=== PATIENT | male | born 1945 | race Caucasian/White ===

== ENCOUNTER 2018-05-14 09:38 | Inpatient (IN) | payer MEDICARE, OTHER, SELFPAY ==
[2018-05-08 13:32] VITALS: BMI 36.6
[2018-05-14] VITALS (12 sets, daily range): BP systolic 121–156; BP diastolic 69–85; PULSE 78–660; RESP 16–20; TEMP 36.6–36.9; O2SAT 92–95; BMI 36.8; BMI 35.4
--- NOTE | 2018-05-14 10:04 | EKG12_ITS ---
Test Reason : SOB Blood Pressure : / mmHG Vent. Rate : 081 BPM Atrial Rate : 081 BPM P-R Int : 206 ms QRS Dur : 094 ms QT Int : 396 ms P-R-T Axes : 073 018 019 degrees QTc Int : 460 ms Sinus rhythm with frequent Premature ventricular complexes Low voltage QRS Cannot rule out Inferior infarct , age undetermined Abnormal ECG Confirmed by DUYEN RANDHAWA ([id number]), food expeditor ALBERTINA MELGAR ([id number]) on 05/18/2018 1:36:51 PM Referred By: JOVANY Confirmed By:DUYEN RANDHAWA
--- NOTE | 2018-05-14 10:04 | RAD_ITS ---
STUDY: X-RAY CHEST REASON FOR EXAM: Male, 72 years old. Increasing shortness of breath. TECHNIQUE: PA and lateral views of the chest. COMPARISON: None. FINDINGS: EKG electrodes are seen. There is evidence of vascular congestion and mild degree of CHF with bibasilar atelectasis. Blunting of both costophrenic angles. There is borderline cardiomegaly. Normal mediastinum and isaura. Normal visualized pulmonary arteries. There is atherosclerotic calcification of the aortic arch with tortuosity. Normal visualized thoracic spine. Normal visualized ribs, clavicles, and shoulders. There is no demonstrated abnormality of the visualized soft tissue structures of the upper abdomen. RAD/Chest PA and Lateral IMPRESSION: Findings in keeping with CHF. Blunting of both costophrenic angles. Electronically Signed: Parminder Benton, at 11:06 EST , Service support ,
[2018-05-14 10:25] LABS: Bacteria 0 SEEN /hpf (None Seen); Mucous, Urine 0 SEEN /hpf (<or=2+); Red Blood Cells-Urine 0 SEEN /hpf (0-5); Squamous Epithelial Cells - UA 0 SEEN /hpf (0-5); White Blood Cells 0 SEEN /hpf (0-5)
[2018-05-14 10:40] LABS: Color, Urine Yellow (Yellow); Glucose, Dipstick Normal (Normal); Ketone-Dipstick Negative (Negative); Leukocyte Esterase-Dipstick Negative /ul (Negative); Nitrite-Dipstick Negative (Negative); Occult Blood-Urine Negative /ul (Negative); Protein-Dipstick 100 mg/dl (Negative); Specific Gravity, Urine 1.015 (1.002-1.030); Urine Bilirubin Dipstick Negative (Negative); Urine Clarity Clear (Clear); Urine Urobilinogen Normal (Normal)
[2018-05-14 10:41] LABS: Absolute Neutrophil Count 6.5 X10^3/uL (2.0-7.7); Basophil# 0.07 X10^3/uL; Basophil% 0.8 % (0-1); Eosinophil# 0.13 X10^3/uL; Eosinophils% 1.5 % (0-5); Hematocrit 41.2 % (40-54); Hemoglobin 13.4 g/dl (13.0-16.5); Lymphocyte % 14.1 % (19-41); Mean Corp Hgb Conc 32.5 g/gl (32-36); Mean Corpuscular Hgb 29.5 pg (27.0-32.0); Mean Corpuscular Volume 90.5 fL (80-94); Mean Platelet Vol. 9.2 fl (6.2-12.0); Monocyte# 0.62 X10^3/uL; Monocyte% 7.3 % (0-10); Neutrophil # 6.51 X10^3/uL (2.7-7.7); Neutrophil % 76.2 % (47-70); Platelet Count 253 K/mm3 (150-450); RBC Distribution Width CV 13.9 % (11.6-14.6); RBC Distribution Width SD 45.2 fl (35.1-43.9); Red Blood Count 4.55 M/mm3 (4.6-6.2); White Blood Count 8.5 K/mm3 (4.4-11.0)
[2018-05-14 10:42] LABS: POSITIVE COUNT NO; POSITIVE DIFFERENTIAL NO; POSITIVE MORPHOLOGY NO
[2018-05-14 10:59] LABS: ALB/GLOB Ratio 1.1 RATIO (0.9-2.4); AST(SGOT) 22 U/L (15-37); Alanine Aminotransfer ALT/SGPT 19 U/L (16-61); Albumin, Serum 3.9 g/dL (3.2-5.0); Alkaline Phosphatase 156 U/L (45-117); Anion Gap 8 (5-15); BUN 43 mg/dL (7-18); BUN/Creat Ratio 18.3 RATIO (10-20); Calcium,Total 9.2 mg/dL (8.5-10.1); Chloride 105 mmol/L (98-107); Creatinine, Serum 2.35 mg/dL (0.70-1.30); EST Glomerular Filtration Rate 29 mL/min (>60); Est Glom Filt Rate - Afr Amer 35 mL/min (>60); Estimated Creatinine Clearance 26.96 ml/min; Globulin 3.7 g/dL (2.2-4.2); Glucose 103 mg/dL (74-106); Potassium 4.6 mmol/L (3.5-5.1); Protein, Total 7.6 g/dL (6.4-8.2); Sodium Level 138 mmol/L (136-145)
[2018-05-14 13:20] LABS: BNP,B-Type NATRIURETIC PEPTIDE 797.4 pg/mL (0-100)
--- NOTE | 2018-05-14 14:41 | ED.VISSUMM ---
- ER Visit Summary Date of Service: 05/14/18 Chief Complaint: Dyspnea History of Present Illness: The patient is a 72 M presents the emergency part shortness of breath. He states is been ongoing for past several months but worsening. He states that in March he started some Advair but seem to make things worse so it was discontinued. He saw Dr. Ramirez from pulmonology he states 2 Fridays ago. He reports that he has a 6-minute walk and pulmonary function test scheduled. He has known obstructive sleep apnea but could not tolerate the CPAP does not wear it. He does have a sleep study coming up. He notes decreased appetite feels weaker than normal more short of breath with exertion and states his legs are more swollen than they have been. He denies a history of pulmonary hypertension. He states he has chronic kidney disease. He said prior cardiac stents. 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. Physical Examination: Afebrile vital signs are stable Gen: Well-nourished well-developed Head: Normocephalic atraumatic Eyes: Perrl EOMI ENT: TMs clear no rhinorrhea moist mucous membranes Neck: Supple no lymphadenopathy no JVD nontender CVS: Regular rate rhythm no murmurs normal S1-S2 Respiratory: No distress clear to auscultation bilaterally chest nontender Abdomen: Soft nontender nondistended normal bowel sounds no masses Back: Nontender Extremity: Nontender plus lower extremity edema to the level of the knees Skin: Normal color no rash Neuro: alert orientated ?3 CN II-XII intact normal strength sensation reflexes gait cerebellar Psych: Normal affect normal mood Test Results: 1. Chest x-ray showed small pleural effusions and mild CHF. Creatinine 2.4. Troponin negative. Natruretic peptide around 700. Emergency Department Course and Treatment: Patient received Lasix. He when he ambulates he drops to about 88% and his labored breathing. August of last year his creatinine was 2 February was 2.2. He had a recent echocardiogram that showed a right ventricular systolic pressure of 49. At this point this appears to be a degree of congestive heart failure probably complicated by underlying pulmonary disease. Plan is admission. Impression: 1. Dyspnea 2. Congestive heart failure This note was generated with [employer] dictation software. It may contain incorrect words, spelling, and punctuation that were not noted in review of the chart prior to signing ED Disposition - Plan for ED Patient: Disposition: Home or Assisted Living
[2018-05-14] MEDS: Furosemide 100 MG/10 ML Vial 60 MG IV (14:47)
--- NOTE | 2018-05-14 15:02 | CASEMGMT ---
RN CM Assessment Introduced role of RN CM to patient and at bedside. Patient is alert, oriented and able to participate in RN CM Assessment. Care providers, pharmacy, and demographics verified. Patient has a h/o COPD, Currently being worked up with Pulm- Dr Ramirez for spot on lung and has a few upcoming appointments for walking test, Lung Function Test, Sleep Apnea Test. Advair was making patient feel worse and told to stop per MD. 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 Lives with in a Home, 3 steps to enter. Independent with ambulation and ADL's. Transportation: Patient drives, will drive on [place]. DME: None, No preference on DME Company. HHC: None in the past, No preference on Agency. SNF: None in past, no preference on Facility. DC PLAN: Home with , no anticipated needs identified. JAMILAH Larson
--- NOTE | 2018-05-14 15:33 | PCM.HP.STD ---
Problem List (1) (HFpEF) heart failure with preserved ejection fraction Status: Acute Qualifiers: Heart failure chronicity: acute Qualified Code(s): I50.31 - Acute diastolic (congestive) heart failure History of Present Illness Date of Admission: 05/14/18 Chief Complaint: Dyspnea on exertion The patient is a 72 year old M who over the past month has had progressive dyspnea on exertion. Is also had increased lower extremity edema. Patient presented to the emergency room for evaluation. Chest x-ray was consistent with CHF and he received IV Lasix in the emergency room. Patient denies ever having had heart failure before. 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) Lumbosacral stenosis (Chronic) Erectile dysfunction (Chronic) BPH (benign prostatic hyperplasia) (Chronic) Chronic kidney disease, stage 3 (Chronic) Lumbar disc disease with radiculopathy (Chronic) GERD (gastroesophageal reflux disease) (Chronic) Gout (Chronic) COPD (chronic obstructive pulmonary disease) (Chronic) Coronary atherosclerosis of [place] coronary artery (Chronic) HTN (hypertension) (Chronic) HLD (hyperlipidemia) (Chronic) Obesity (Chronic) Medical History: Medical History (Last Reviewed 05/14/18 @ 15:35 by Andrey Soliman DO) MARCELO (obstructive sleep apnea) (Chronic) G47.33 Contact dermatitis (Acute) L25.9 Acute upper respiratory infection (Acute) J06.9 Acute suppurative otitis media (Acute) H66.009 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) F52.8 Lumbosacral stenosis (Chronic) M48.07 Acute bronchitis (Acute) J20.9 Acute sinus infection (Acute) J01.[address] (Acute) R93.89 Bilateral leg edema (Acute) R60.0 ELLIOTT (dyspnea on exertion) (Acute) R06.09 Erectile dysfunction (Chronic) N52.9 BPH (benign prostatic hyperplasia) (Chronic) N40.0 Chronic kidney disease, stage 3 (Chronic) N18.3 Lumbar disc disease with radiculopathy (Chronic) M51.16 GERD (gastroesophageal reflux disease) (Chronic) K21.9 Gout (Chronic) M10.9 COPD (chronic obstructive pulmonary disease) (Chronic) J44.9 Coronary atherosclerosis of si[place] coronary artery (Chronic) I25.10 HTN (hypertension) (Chronic) I10 HLD (hyperlipidemia) (Chronic) E78.5 Obesity (Chronic) E66.9 Allergies Penicillins Allergy (Severe, Verified 05/14/18 15:32) Rash, 105 temp aspirin Adverse Reaction (Mild, Verified 05/14/18 10:05) rash ENTERIC COATED ONLY; IS ABLE TO TAKE REGULAR ASPIRIN Home Medications: Ambulatory Orders Medication Instructions Recorded allopurinol 100 mg tablet 100 mg PO BID 05/03/18 amlodipine 10 mg tablet 10 mg PO DAILY 05/03/18 ascorbic acid (vitamin C) 500 mg 500 mg PO DAILY 05/03/18 tablet aspirin 81 mg chewable tablet 81 mg PO DAILY 05/03/18 furosemide 40 mg tablet 40 mg PO BID 05/03/18 indomethacin 25 mg capsule 25 mg PO PRN PRN 05/03/18 losartan 100 mg tablet 100 mg PO DAILY 05/03/18 magnesium oxide 400 mg capsule 400 mg PO BID cap 05/03/18 metoprolol succinate ER 50 mg 25 mg PO BID 05/03/18 tablet,extended release 24 hr multivitamin tablet 1 tab PO DAILY 05/03/18 nitroglycerin 0.4 mg sublingual 0.4 mg SUBLINGUAL Q5-15M PRN 05/03/18 tablet omeprazole 20 mg capsule,delayed 20 mg PO DAILY 05/03/18 release rosuvastatin 5 mg tablet 5 mg PO QHS 05/03/18 Surgical History: Surgical History (Last Reviewed 05/14/18 @ 15:35 by Andrey Soliman DO) History of knee replacement procedure of left knee (Resolved) Z96.652 History of foot surgery (Resolved) Z98.890 History of heart artery stent (Resolved) Z95.5 Smoking Status: Former smoker Tobacco Use: Non-smoker Alcohol: Rare - *Family History Maternal Family History: Family History (Last Reviewed 05/14/18 @ 15:35 by Andrey Soliman DO) Mother Hypertension CVA (cerebral vascular accident) Father Heart disease Hodgkin disease Sister Heart disease Review of Systems Constitutional: Denies: Anorexia, Chills, Fever Eyes: Denies: Blurred vision, Double vision HEENT: Denies: Head Aches, Sinus Congestion, Sinus Drainage Cardiovascular: Reports: Edema. Denies: Chest Pain, Chest Pressure Respiratory: Reports: Cough, Shortness of breath upon exertion Gastrointestinal: Denies: Abdominal Pain, Nausea, Vomiting Genitourinary: Denies: Dysuria Musculoskeletal: Denies: Joint Pain, Joint Tenderness Skin: Denies: Dryness, Rash Neurological: Denies: Numbness, Tingling, Focal weakness Psychiatric: Denies: Homicidal Ideations, Suicidal Ideations Endocrine: Denies: Change in Body Habitus Hematologic/ Lymphatic: Denies: Easy Bruising, Easy Bleeding, Hx of blood clot Comment: A 10 point review of systems were negative except as mentioned in the history of present illness and the other review of systems. VTE Information - Inpt Only VTE Present on Admission: No VTE Mechan Device Prophylaxis: None VTE Pharm Prophylaxis ordered?: Yes Patient Problems: Active and Suspected Problems (Last Updated 05/08/18 @ 13:40 by Ewa Gonzalez) (HFpEF) heart failure with preserved ejection fraction (Acute) - Physical Exam General: Alert, Cooperative, No apparent distress HEENT: Atraumatic, Normocephalic Oral: Moist Mucosa, No Gingival or Mucosal Lesions/ Ulcerations Neck: No JVD, No Nodes, Thyroid Normal Size and Texture Lungs: Diminished, - - Crackles bilaterally. Cardiovascular: Regular rate, Regular Rhythm, Normal S1, Normal S2, No murmurs Abdomen: Bowel Sounds Present, Soft, Non Tender, Non-Distended, No Hepato-splenomegaly Extremities: No Calf Tenderness, Edema Skin: No rashes, No breakdown Musculoskeletal: No Tenderness to Palpation of Joints or Extremities, No Muscle Wasting Psych/Mental Status: Normal Affect, Appropriate Vital Signs Temp Pulse Resp BP Pulse Ox 36.6 C 80 20 H 156/73 H 94 05/14/18 09:40 05/14/18 14:24 05/14/18 14:24 05/14/18 14:24 05/14/18 14:24 Weight: 106.5 kg Body Mass Index (BMI) 36.8 Laboratory Tests Past 24 Hrs 05/14/18 05/14/18 05/14/18 10:15 10:30 10:30 WBC 8.5 RBC 4.55 L Hgb 13.4 Hct 41.2 MCV 90.5 MCH 29.5 MCHC 32.5 RDW 13.9 RDW Differential 45.2 H Plt Count 253 MPV 9.2 Immature Gran % (Auto) 0.100 Neut % (Auto) 76.2 H Lymph % (Auto) 14.1 L [place] % (Auto) 7.3 Eos % (Auto) 1.5 Baso % (Auto) 0.8 Absolute Neuts (auto) 6.5 Absolute Lymphs (auto) 1.20 Total Counted Not Reportable Sodium 138 Potassium 4.6 Chloride 105 Carbon Dioxide 25.0 Anion Gap 8 BUN 43 H Creatinine 2.35 H Estim Creat Clear Calc 26.96 Est GFR (MDRD) Af Amer 35 L Est GFR (MDRD) Non-Af 29 L BUN/Creatinine Ratio 18.3 Glucose 103 Calcium 9.2 Total Bilirubin 0.70 AST 22 ALT 19 Alkaline Phosphatase 156 H Troponin I 0.028 B-Natriuretic Peptide Total Protein 7.6 Albumin 3.9 Globulin 3.7 Albumin/Globulin Ratio 1.1 Urine Color Yellow Urine Clarity Clear Urine pH 6.0 Ur Specific [place] 1.015 Urine Protein 100 H Urine Glucose (UA) Normal Urine Ketones Negative Urine Occult Blood Negative Urine Nitrite Negative Urine Bilirubin Negative Urine Urobilinogen Normal Ur Leukocyte Esterase Negative Urine RBC 0 SEEN Urine WBC 0 SEEN Ur Squamous Epith Cells 0 SEEN Urine Bacteria 0 SEEN Urine Mucus 0 SEEN 05/14/18 10:30 WBC RBC Hgb Hct MCV MCH MCHC RDW RDW Differential Plt Count MPV Immature Gran % (Auto) Neut % (Auto) Lymph % (Auto) [place] % (Auto) Eos % (Auto) Baso % (Auto) Absolute Neuts (auto) Absolute Lymphs (auto) Total Counted Sodium Potassium Chloride Carbon Dioxide Anion Gap BUN Creatinine Estim Creat Clear Calc Est GFR (MDRD) Af Amer Est GFR (MDRD) Non-Af BUN/Creatinine Ratio Glucose Calcium Total Bilirubin AST ALT Alkaline Phosphatase Troponin I B-Natriuretic Peptide 797.4 H Total Protein Albumin Globulin Albumin/Globulin Ratio Urine Color Urine Clarity Urine pH Ur Specific [place] Urine Protein Urine Glucose (UA) Urine Ketones Urine Occult Blood Urine Nitrite Urine Bilirubin Urine Urobilinogen Ur Leukocyte Esterase Urine RBC Urine WBC Ur Squamous Epith Cells Urine Bacteria Urine Mucus Chest x-ray reviewed and showed pulmonary vascular congestion bilaterally. EKG reviewed and showed normal sinus rhythm with PVCs. No acute changes. Outpatient echocardiogram showed EF of 50-55% with right ventricular systolic pressure of 48 mmHg. Assessment/Plan All Active Problems (Last Updated 05/08/18 @ 13:40 by Ewa Gonzalez) (HFpEF) heart failure with preserved ejection fraction (Acute) History of knee replacement procedure of left knee (Resolved) History of foot surgery (Resolved) History of heart artery stent (Resolved) Contact dermatitis (Acute) Acute upper respiratory infection (Acute) Acute suppurative otitis media (Acute) Acute bronchitis (Acute) Acute sinus infection (Acute) Abnormal chest CT (Acute) Bilateral leg edema (Acute) ELLIOTT (dyspnea on exertion) (Acute) 1. Acute heart failure with preserved ejection fraction: EF between 50-55%. Patient received 60 mg of IV Lasix and emergency room. We will continue with 40 mg of IV Lasix on the floor. Check an echocardiogram to see if there is been any change in his section fraction since previous echocardiogram. Cycle troponins. 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 2. Kidney disease stage III-IV: Previous creatinines had measured around 2. Monitor closely while he is on Lasix. Patient is established with a rubber goods tester, Dr. Christiansen, as outpatient. 3. COPD: Stable at this time not in exacerbation. 4. Pulmonary hypertension: Likely group 2 or 3 or combination there of. Patient has known sleep apnea but could not tolerate a BiPAP. Patient is to have another sleep study as outpatient as arranged through his skiver heel tap, Dr. Ramirez. 5. DVT prophylaxis with subcu heparin. Case discussed with his at bedside. Code Visit Inpatient E&M: 50856 Init Hosp L2
--- NOTE | 2018-05-14 15:40 | HP.PCM_ITS ---
Problem List (1) (HFpEF) heart failure with preserved ejection fraction Status: Acute Qualifiers: Heart failure chronicity: acute Qualified Code(s): I50.31 - Acute diastolic (congestive) heart failure History of Present Illness Date of Admission: 05/14/18 Chief Complaint: Dyspnea on exertion The patient is a 72 year old M who over the past month has had progressive dyspnea on exertion. Is also had increased lower extremity edema. Patient presented to the emergency room for evaluation. Chest x-ray was consistent with CHF and he received IV Lasix in the emergency room. Patient denies ever having had heart failure before. 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) Lumbosacral stenosis (Chronic) Erectile dysfunction (Chronic) BPH (benign prostatic hyperplasia) (Chronic) Chronic kidney disease, stage 3 (Chronic) Lumbar disc disease with radiculopathy (Chronic) GERD (gastroesophageal reflux disease) (Chronic) Gout (Chronic) COPD (chronic obstructive pulmonary disease) (Chronic) Coronary atherosclerosis of kashia coronary artery (Chronic) HTN (hypertension) (Chronic) HLD (hyperlipidemia) (Chronic) Obesity (Chronic) Medical History: Medical History (Last Reviewed 05/14/18 @ 15:35 by Andrey Soliman DO) MARCELO (obstructive sleep apnea) (Chronic) G47.33 Contact dermatitis (Acute) L25.9 Acute upper respiratory infection (Acute) J06.9 Acute suppurative otitis media (Acute) H66.009 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) F52.8 Lumbosacral stenosis (Chronic) M48.07 Acute bronchitis (Acute) J20.9 Acute sinus infection (Acute) J01.[address] (Acute) R93.89 Bilateral leg edema (Acute) R60.0 ELLIOTT (dyspnea on exertion) (Acute) R06.09 Erectile dysfunction (Chronic) N52.9 BPH (benign prostatic hyperplasia) (Chronic) N40.0 Chronic kidney disease, stage 3 (Chronic) N18.3 Lumbar disc disease with radiculopathy (Chronic) M51.16 GERD (gastroesophageal reflux disease) (Chronic) K21.9 Gout (Chronic) M10.9 COPD (chronic obstructive pulmonary disease) (Chronic) J44.9 Coronary atherosclerosis of kashia coronary artery (Chronic) I25.10 HTN (hypertension) (Chronic) I10 HLD (hyperlipidemia) (Chronic) E78.5 Obesity (Chronic) E66.9 Allergies Penicillins Allergy (Severe, Verified 05/14/18 15:32) Rash, 105 temp aspirin Adverse Reaction (Mild, Verified 05/14/18 10:05) rash ENTERIC COATED ONLY; IS ABLE TO TAKE REGULAR ASPIRIN Home Medications: Ambulatory Orders Medication Instructions Recorded allopurinol 100 mg tablet 100 mg PO BID 05/03/18 amlodipine 10 mg tablet 10 mg PO DAILY 05/03/18 ascorbic acid (vitamin C) 500 mg 500 mg PO DAILY 05/03/18 tablet aspirin 81 mg chewable tablet 81 mg PO DAILY 05/03/18 furosemide 40 mg tablet 40 mg PO BID 05/03/18 indomethacin 25 mg capsule 25 mg PO PRN PRN 05/03/18 losartan 100 mg tablet 100 mg PO DAILY 05/03/18 magnesium oxide 400 mg capsule 400 mg PO BID cap 05/03/18 metoprolol succinate ER 50 mg 25 mg PO BID 05/03/18 tablet,extended release 24 hr multivitamin tablet 1 tab PO DAILY 05/03/18 nitroglycerin 0.4 mg sublingual 0.4 mg SUBLINGUAL Q5-15M PRN 05/03/18 tablet omeprazole 20 mg capsule,delayed 20 mg PO DAILY 05/03/18 release rosuvastatin 5 mg tablet 5 mg PO QHS 05/03/18 Surgical History: Surgical History (Last Reviewed 05/14/18 @ 15:35 by Andrey Soliman DO) History of knee replacement procedure of left knee (Resolved) Z96.652 History of foot surgery (Resolved) Z98.890 History of heart artery stent (Resolved) Z95.5 Smoking Status: Former smoker Tobacco Use: Non-smoker Alcohol: Rare - *Family History Maternal Family History: Family History (Last Reviewed 05/14/18 @ 15:35 by Andrey Soliman DO) Mother Hypertension CVA (cerebral vascular accident) Father Heart disease Hodgkin disease Sister Heart disease Review of Systems Constitutional: Denies: Anorexia, Chills, Fever Eyes: Denies: Blurred vision, Double vision HEENT: Denies: Head Aches, Sinus Congestion, Sinus Drainage Cardiovascular: Reports: Edema. Denies: Chest Pain, Chest Pressure Respiratory: Reports: Cough, Shortness of breath upon exertion Gastrointestinal: Denies: Abdominal Pain, Nausea, Vomiting Genitourinary: Denies: Dysuria Musculoskeletal: Denies: Joint Pain, Joint Tenderness Skin: Denies: Dryness, Rash Neurological: Denies: Numbness, Tingling, Focal weakness Psychiatric: Denies: Homicidal Ideations, Suicidal Ideations Endocrine: Denies: Change in Body Habitus Hematologic/ Lymphatic: Denies: Easy Bruising, Easy Bleeding, Hx of blood clot Comment: A 10 point review of systems were negative except as mentioned in the history of present illness and the other review of systems. VTE Information - Inpt Only VTE Present on Admission: No VTE Mechan Device Prophylaxis: None VTE Pharm Prophylaxis ordered?: Yes Patient Problems: Active and Suspected Problems (Last Updated 05/08/18 @ 13:40 by Ewa Gonzalez) (HFpEF) heart failure with preserved ejection fraction (Acute) - Physical Exam General: Alert, Cooperative, No apparent distress HEENT: Atraumatic, Normocephalic Oral: Moist Mucosa, No Gingival or Mucosal Lesions/ Ulcerations Neck: No JVD, No Nodes, Thyroid Normal Size and Texture Lungs: Diminished, - - Crackles bilaterally. Cardiovascular: Regular rate, Regular Rhythm, Normal S1, Normal S2, No murmurs Abdomen: Bowel Sounds Present, Soft, Non Tender, Non-Distended, No Hepato- splenomegaly Extremities: No Calf Tenderness, Edema Skin: No rashes, No breakdown Musculoskeletal: No Tenderness to Palpation of Joints or Extremities, No Muscle Wasting Psych/Mental Status: Normal Affect, Appropriate Vital Signs Temp Pulse Resp BP Pulse Ox 36.6 C 80 20 H 156/73 H 94 05/14/18 09:40 05/14/18 14:24 05/14/18 14:24 05/14/18 14:24 05/14/18 14:24 Weight: 106.5 kg Body Mass Index (BMI) 36.8 Laboratory Tests Past 24 Hrs 05/14/18 05/14/18 05/14/18 10:15 10:30 10:30 WBC 8.5 RBC 4.55 L Hgb 13.4 Hct 41.2 MCV 90.5 MCH 29.5 MCHC 32.5 RDW 13.9 RDW Differential 45.2 H Plt Count 253 MPV 9.2 Immature Gran % (Auto) 0.100 Neut % (Auto) 76.2 H Lymph % (Auto) 14.1 L [place] % (Auto) 7.3 Eos % (Auto) 1.5 Baso % (Auto) 0.8 Absolute Neuts (auto) 6.5 Absolute Lymphs (auto) 1.20 Total Counted Not Reportable Sodium 138 Potassium 4.6 Chloride 105 Carbon Dioxide 25.0 Anion Gap 8 BUN 43 H Creatinine 2.35 H Estim Creat Clear Calc 26.96 Est GFR (MDRD) Af Amer 35 L Est GFR (MDRD) Non-Af 29 L BUN/Creatinine Ratio 18.3 Glucose 103 Calcium 9.2 Total Bilirubin 0.70 AST 22 ALT 19 Alkaline Phosphatase 156 H Troponin I 0.028 B-Natriuretic Peptide Total Protein 7.6 Albumin 3.9 Globulin 3.7 Albumin/Globulin Ratio 1.1 Urine Color Yellow Urine Clarity Clear Urine pH 6.0 Ur Specific [place] 1.015 Urine Protein 100 H Urine Glucose (UA) Normal Urine Ketones Negative Urine Occult Blood Negative Urine Nitrite Negative Urine Bilirubin Negative Urine Urobilinogen Normal Ur Leukocyte Esterase Negative Urine RBC 0 SEEN Urine WBC 0 SEEN Ur Squamous Epith Cells 0 SEEN Urine Bacteria 0 SEEN Urine Mucus 0 SEEN 05/14/18 10:30 WBC RBC Hgb Hct MCV MCH MCHC RDW RDW Differential Plt Count MPV Immature Gran % (Auto) Neut % (Auto) Lymph % (Auto) [place] % (Auto) Eos % (Auto) Baso % (Auto) Absolute Neuts (auto) Absolute Lymphs (auto) Total Counted Sodium Potassium Chloride Carbon Dioxide Anion Gap BUN Creatinine Estim Creat Clear Calc Est GFR (MDRD) Af Amer Est GFR (MDRD) Non-Af BUN/Creatinine Ratio Glucose Calcium Total Bilirubin AST ALT Alkaline Phosphatase Troponin I B-Natriuretic Peptide 797.4 H Total Protein Albumin Globulin Albumin/Globulin Ratio Urine Color Urine Clarity Urine pH Ur Specific [place] Urine Protein Urine Glucose (UA) Urine Ketones Urine Occult Blood Urine Nitrite Urine Bilirubin Urine Urobilinogen Ur Leukocyte Esterase Urine RBC Urine WBC Ur Squamous Epith Cells Urine Bacteria Urine Mucus Chest x-ray reviewed and showed pulmonary vascular congestion bilaterally. EKG reviewed and showed normal sinus rhythm with PVCs. No acute changes. Outpatient echocardiogram showed EF of 50-55% with right ventricular systolic pressure of 48 mmHg. Assessment/Plan All Active Problems (Last Updated 05/08/18 @ 13:40 by Ewa Gonzalez) (HFpEF) heart failure with preserved ejection fraction (Acute) History of knee replacement procedure of left knee (Resolved) History of foot surgery (Resolved) History of heart artery stent (Resolved) Contact dermatitis (Acute) Acute upper respiratory infection (Acute) Acute suppurative otitis media (Acute) Acute bronchitis (Acute) Acute sinus infection (Acute) Abnormal chest CT (Acute) Bilateral leg edema (Acute) ELLIOTT (dyspnea on exertion) (Acute) 1. Acute heart failure with preserved ejection fraction: EF between 50-55%. Patient received 60 mg of IV Lasix and emergency room. We will continue with 40 mg of IV Lasix on the floor. Check an echocardiogram to see if there is been any change in his section fraction since previous echocardiogram. Cycle troponins. Request records from his service writer. 2. Kidney disease stage III-IV: Previous creatinines had measured around 2. Monitor closely while he is on Lasix. Patient is established with a pest control specialist, Dr. Christiansen, as outpatient. 3. COPD: Stable at this time not in exacerbation. 4. Pulmonary hypertension: Likely group 2 or 3 or combination there of. Patient has known sleep apnea but could not tolerate a BiPAP. Patient is to have another sleep study as outpatient as arranged through his club licensee, Dr. Ramirez. 5. DVT prophylaxis with subcu heparin. Case discussed with his at bedside. Code Visit Inpatient E&M: 43950 Init Hosp L2
[2018-05-14 16:27] LABS: Thyroid Stim Hormone (TSH) 4.91 uIU/mL (0.358-3.74)
[2018-05-14] MEDS: Heparin Injection (Vial) 5,000 UNIT/ML VIAL 5000 UNIT SC (21:52)
[2018-05-14] MEDS: Magnesium Oxide 400 MG Tablet PO (21:52)
[2018-05-14] MEDS: Atorvastatin Calcium 10 MG Tablet PO (21:52)
[2018-05-14] MEDS: Metoprolol(XL)Succ 25 MG Tablet PO (21:53)
[2018-05-14] MEDS: Allopurinol 100 MG Tablet PO (21:53)
[2018-05-15] VITALS (15 sets, daily range): BP systolic 121–142; BP diastolic 49–64; PULSE 47–111; RESP 18; TEMP 36.6–37.6; O2SAT 92–95
[2018-05-15] MEDS: Heparin Injection (Vial) 5,000 UNIT/ML VIAL 5000 UNIT SC ×3 (05:41→21:15)
--- NOTE | 2018-05-15 05:55 | ECHOD_ITS ---
Reason For Study: CHF Procedure This was a 2D Doppler, Color Flow transthoracic echocardiogram. The study was technically difficult. Due to body habitus and arrhythmia. Exam performed portable in patient room. Left Ventricle Normal LV size. Mild global left ventricular systolic dysfunction. The estimated ejection fraction is 45 %. Unable to assess diastolic dysfunction. Right Ventricle Normal RV size. Normal systolic function. Atria Normal left atrium. The right atrium is mildly enlarged. No doppler evidence for ASD. Mitral Valve There is no mitral annular calcification. Normal mitral valve. Mild-Moderate (1-2+) mitral valve insufficiency. Tricuspid Valve Normal tricuspid valve. Trivial tricuspid valve insufficiency. Right ventricular systolic pressure estimated to be 25 mmHg. Aortic Valve Trisinus/trileaflet aortic valve. Normal aortic valve. Pulmonic Valve The pulmonic valve is not well visualized. Great Vessels Normal sized aortic root. Pericardium/Pleural No pericardial effusion. MMode/2D Measurements & Calculations LVIDd: 5.1 cm IVSd: 1.0 cm Ao root diam: 3.6 cm LVIDs: 4.4 cm LVPWd: 1.0 cm RVDd: 4.3 cm FS: 14.2 % LAV(MOD-bp): 78.8 ml LA A4 area: 23.3 cm2 LA dimension(2D): 4.0 cm LAV(MOD-bp) Indexed: 37.1 ml/m2 LAV(MOD-sp2): 76.6 ml LAV(MOD-sp4): 75.8 ml RA A4 area: 15.9 cm2 Doppler Measurements & Calculations MV E max mitzy: 110.0 cm/sec Ao V2 max: 113.5 cm/sec LV V1 max: 90.3 cm/sec MV A max mitzy: 86.5 cm/sec Ao max P.2 mmHg LV V1 max P.3 mmHg MV E/A: 1.3 PA V2 max: 69.5 cm/sec TR max mitzy: 232.9 cm/sec TR max P.7 mmHg Interpretation Summary The study was technically difficult. Mild global left ventricular systolic dysfunction. The estimated ejection fraction is 45 %. The right atrium is mildly enlarged. Mild-Moderate (1-2+) mitral valve insufficiency. Trivial tricuspid valve insufficiency. Right ventricular systolic pressure estimated to be 25 mmHg. Unable to assess diastolic dysfunction. Ordering Physician: Andrey Soliman Referring Physician: Zack Stacy Performed By: Sally Moran, ISIDORO, RVT
[2018-05-15 07:20] LABS: Anion Gap 11 (5-15); BUN 44 mg/dL (7-18); BUN/Creat Ratio 18.8 RATIO (10-20); Calcium,Total 8.9 mg/dL (8.5-10.1); Chloride 105 mmol/L (98-107); Creatinine, Serum 2.34 mg/dL (0.70-1.30); EST Glomerular Filtration Rate 29 mL/min (>60); Est Glom Filt Rate - Afr Amer 35 mL/min (>60); Estimated Creatinine Clearance 27.07 ml/min; Glucose 98 mg/dL (74-106); Potassium 4.6 mmol/L (3.5-5.1); Sodium Level 143 mmol/L (136-145)
[2018-05-15] MEDS: Ascorbic Acid 500 MG Tablet PO (09:32)
[2018-05-15] MEDS: Multivitamins,Therapeutic Tablet 1 TABLET PO (09:32)
[2018-05-15] MEDS: amLODIPine 10 MG Tablet PO (09:32)
[2018-05-15] MEDS: Losartan Potassium 100 MG Tablet PO (09:32)
[2018-05-15] MEDS: Aspirin 81 MG TAB.CHEW PO (09:32)
[2018-05-15] MEDS: Magnesium Oxide 400 MG Tablet PO ×2 (09:32→21:16)
[2018-05-15] MEDS: Furosemide 40 MG/4 ML Vial IV ×2 (09:33→19:01)
[2018-05-15] MEDS: Metoprolol(XL)Succ 25 MG Tablet PO ×2 (09:33→21:16)
[2018-05-15] MEDS: Allopurinol 100 MG Tablet PO ×2 (09:33→21:17)
[2018-05-15] MEDS: Pantoprazole Sodium 20 MG Tablet PO (09:36)
[2018-05-15] MEDS: 0.9% NaCl Peripheral Flush Adult/Peds IV ×2 (09:37→19:01)
--- NOTE | 2018-05-15 20:26 | PN_ITS ---
Patient Problems: Active and Suspected Problems (Last Reviewed 05/14/18 @ 15:35 by Andrey Soliman DO) (HFpEF) heart failure with preserved ejection fraction (Acute) Subjective: Patient was seen and examined today, his echocardiogram today showed an EF of 45%. There is no significant valvular heart disease and no evidence of pulmon montrell hypertension. I talked to the patient and his in his room today extensively, he is worried about lower extremity edema and had seen his PCP regarding this. According to the patient and his , he was told by his PCP you are just old when explaining why he had leg edema. I went over the patient's meds with him and discussed them with his , patient is supposed to be on 40 mg of Lasix twice a day-he is only been taking 1 a day, he states his PCP reduced it to once a day but does not know why. Patient is also on a high dose of amlodipine which I told him could cause leg edema. He states he was never told that by his PCP. Patient also denies any history of congestive heart failure-it appears that the patient has diastolic congestive heart failure. Finally, patient's monitor shows periods of tachycardia which appears to be regular, it is hard to discern P waves during these episodes of tachycardia and then there are episodes of bradycardia with unifocal PVCs present. Patient states that he is never had a Holter monitor performed, he follows up every year with a ornamental metalwork designer because he has had a history of coronary artery disease. States he is feeling much better today and he can breathe better. - Physical Exam General: Alert, Oriented x3, Cooperative, No apparent distress, Well developed, Well nourished HEENT: Atraumatic, PERRLA, EOMI, Normocephalic Oral: Moist Mucosa Neck: Supple, No JVD, No Nuchal Rigidity, Trachea Midline, Thyroid Normal Size and Texture Lungs: Clear to auscultation, Normal air movement, No rhonchi, No wheeze, No rales Cardiovascular: Regular rate, Regular Rhythm, Normal S1, Normal S2, No murmurs, - - Frequent ectopic activity is noted Abdomen: Bowel Sounds Present, Soft, Non Tender Extremities: Capillary Refill Less than 3 Seconds, Edema - There is edema over both lower legs, worse on the right Skin: No rashes, No breakdown Neurological: Cranial nerves II-XII grossly intact, Neuro grossly intact, Sensory exam intact to light touch and pain, Coordination normal Psych/Mental Status: Normal Affect, Appropriate, Alert and oriented to time, place, person, mood and affect Vital Signs Temp Pulse Resp BP Pulse Ox 99.6 F H 47 L 18 140/49 H 93 05/15/18 20:00 05/15/18 20:00 05/15/18 20:00 05/15/18 20:00 05/15/18 20:00 Oxygen Flow Rate (L/min) 2 Oxygen Delivery Method Room Air Weight: 101.4 kg Body Mass Index (BMI) 35.4 Intake and Output for Last 24 Hours 05/13/18 05/14/18 05/15/18 23:59 23:59 23:59 Intake Total 480 / 480 1060 / 1060 Output Total 750 / 750 1750 / 1750 Balance -270 / -270 -690 / -690 Laboratory Tests Past 24 Hrs 05/15/18 06:18 Sodium 143 Potassium 4.6 Chloride 105 Carbon Dioxide 27.0 Anion Gap 11 BUN 44 H Creatinine 2.34 H Estim Creat Clear Calc 27.07 Est GFR (MDRD) Af Amer 35 L Est GFR (MDRD) Non-Af 29 L BUN/Creatinine Ratio 18.8 Glucose 98 Calcium 8.9 Medical Necessity - Tobacco Use Smoking Status: Former smoker Tobacco Use: Cigarettes Assessment/Plan All Active Problems (Last Reviewed 05/14/18 @ 15:35 by Andrey Soliman DO) (HFpEF) heart failure with preserved ejection fraction (Acute) History of knee replacement procedure of left knee (Resolved) History of foot surgery (Resolved) History of heart artery stent (Resolved) Contact dermatitis (Acute) Acute upper respiratory infection (Acute) Acute suppurative otitis media (Acute) Acute bronchitis (Acute) Acute sinus infection (Acute) Abnormal chest CT (Acute) Bilateral leg edema (Acute) ELLIOTT (dyspnea on exertion) (Acute) #1 acute diastolic congestive heart failure-with intermediate ejection fraction of 45%-patient will remain on an ARB, he is currently on IV Lasix, I have elected to keep him on this Lasix until tomorrow. #2 lower extremity edema-probably at least in part from his use of amlodipine on a backdrop of suspected pulmonary hypertension and known chronic kidney disease- patient is currently following up with pulmonary medicine, he is scheduled to have pulmonary function tests and a sleep study performed. I will decrease the patient's amlodipine, at the time of discharge from the hospital here, I will change his losartan to Diovan and increase its dosage, I will decrease his amlodipine to 5 mg daily and have him follow-up with his PCP. #3 chronic obstructive pulmonary disease-suspected #4 hypertension #5 coronary artery disease #6 stage III chronic kidney disease-probably from hypertension #7 hyperlipidemia Patient was cautioned not to use indomethacin due to his kidney disease. Code Visit Inpatient E&M: 47943 Subs Hosp L2
[2018-05-15] MEDS: Atorvastatin Calcium 10 MG Tablet PO (21:16)
[2018-05-16 02:00] VITALS: BP 135/65; PULSE 78; RESP 18; TEMP 36.8; O2SAT 95
[2018-05-16 05:53] VITALS: BP 142/70; PULSE 75; RESP 18; TEMP 36.5; O2SAT 94
[2018-05-16] MEDS: Heparin Injection (Vial) 5,000 UNIT/ML VIAL 5000 UNIT SC (05:58)
[2018-05-16 07:00] VITALS: PULSE 80
[2018-05-16 09:15] VITALS: BP 130/60; PULSE 78; RESP 16; TEMP 36.6; O2SAT 94
[2018-05-16 09:16] VITALS: PULSE 78
[2018-05-16] MEDS: Magnesium Oxide 400 MG Tablet PO (09:16)
[2018-05-16] MEDS: Aspirin 81 MG TAB.CHEW PO (09:16)
[2018-05-16] MEDS: Allopurinol 100 MG Tablet PO (09:16)
[2018-05-16] MEDS: Losartan Potassium 100 MG Tablet PO (09:16)
[2018-05-16] MEDS: Furosemide 40 MG/4 ML Vial IV (09:16)
[2018-05-16] MEDS: Metoprolol(XL)Succ 25 MG Tablet PO (09:16)
[2018-05-16] MEDS: amLODIPine 5 MG Tablet PO (09:22)
[2018-05-16] MEDS: Pantoprazole Sodium 20 MG Tablet PO (09:22)
[2018-05-16 09:48] LABS: Anion Gap 9 (5-15); BUN 47 mg/dL (7-18); BUN/Creat Ratio 19.2 RATIO (10-20); Calcium,Total 8.8 mg/dL (8.5-10.1); Chloride 105 mmol/L (98-107); Creatinine, Serum 2.45 mg/dL (0.70-1.30); EST Glomerular Filtration Rate 28 mL/min (>60); Est Glom Filt Rate - Afr Amer 34 mL/min (>60); Estimated Creatinine Clearance 25.86 ml/min; Glucose 179 mg/dL (74-106); Magnesium 1.9 mg/dL (1.6-2.6); Potassium 4.2 mmol/L (3.5-5.1); Sodium Level 140 mmol/L (136-145)
[2018-05-16 11:00] VITALS: PULSE 79
--- NOTE | 2018-05-16 11:55 | DCINST_ITS ---
- Discharge Diagnoses Current Active Problems: Current Active and Chronic Problems (Last Reviewed 05/14/18 @ 15:35 by Andrey Soliman DO) (HFpEF) heart failure with preserved ejection fraction (Acute) You will use the following diet at home:: No restrictions Your food should be the consistency of: Regular Your liquids should be the consistency of: Regular/Thin Discharge Activity: Return to Normal Activity Allergies/Adverse Reactions: Allergies Penicillins Allergy (Severe, Verified 05/14/18 15:32) Rash, 105 temp aspirin Adverse Reaction (Mild, Verified 05/14/18 10:05) rash ENTERIC COATED ONLY; IS ABLE TO TAKE REGULAR ASPIRIN Medications to take at Discharge allopurinol 100 mg tablet 100 mg PO BID 05/03/18 ascorbic acid (vitamin C) 500 mg tablet 500 mg PO DAILY 05/03/18 aspirin 81 mg chewable tablet 81 mg PO DAILY 05/03/18 furosemide 40 mg tablet 40 mg PO BID 05/03/18 magnesium oxide 400 mg capsule 400 mg PO BID cap 05/03/18 metoprolol succinate ER 50 mg tablet,extended release 24 hr 25 mg PO BID 05/03/18 multivitamin tablet 1 tab PO DAILY 05/03/18 nitroglycerin 0.4 mg sublingual tablet 0.4 mg SUBLINGUAL Q5-15M PRN 05/03/18 omeprazole 20 mg capsule,delayed release 20 mg PO DAILY 05/03/18 rosuvastatin 5 mg tablet 5 mg PO QHS 05/03/18 Amlodipine Besylate/Valsartan [Exforge 5-320 mg Tablet] 1 each PO DAILY #30 tablet 05/16/18 The following prescriptions were given: Amlodipine Besylate/Valsartan [Exforge 5-320 mg Tablet] 1 each PO DAILY #30 tablet Primary Care Physician: Zack Stacy [Primary Care Provider] - Please follow up with your Primary Care Physician in: in two weeks Test Results: Test results from this visit will be discussed in further detail at your follow- up appointment, if applicable. Please Follow Up With: Lenin Ramirez When: tomorrow at 11:45 am
--- NOTE | 2018-05-20 10:13 | PCM.DC.SUM ---
Discharge Date and Diagnosis Date of Admission: 05/14/18 Date of Discharge: 05/16/18 - Primary Discharge Diagnosis 1 acute diastolic congestive heart failure-with intermediate ejection fraction of 45% #2 lower extremity edema-probably at least in part from his use of amlodipine on a backdrop of suspected pulmonary hypertension and known chronic kidney disease #3 chronic obstructive pulmonary disease-suspected #4 hypertension #5 coronary artery disease #6 stage III chronic kidney disease- from hypertension #7 hyperlipidemia - Secondary Discharge Diagnosis Chronic Problems (Last Reviewed 05/14/18 @ 15:35 by Andrey Soliman DO) Secondary pulmonary hypertension (Chronic) MARCELO (obstructive sleep apnea) (Chronic) 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) Lumbosacral stenosis (Chronic) Erectile dysfunction (Chronic) BPH (benign prostatic hyperplasia) (Chronic) Chronic kidney disease, stage 3 (Chronic) Lumbar disc disease with radiculopathy (Chronic) GERD (gastroesophageal reflux disease) (Chronic) Gout (Chronic) COPD (chronic obstructive pulmonary disease) (Chronic) Coronary atherosclerosis of [place] coronary artery (Chronic) HTN (hypertension) (Chronic) HLD (hyperlipidemia) (Chronic) Obesity (Chronic) Hospital Course and Treatment Operations: None Procedures: 2-D Echocardiogram Summary of Care Provided: The patient is a 72 year old M who was seen in the emergency room at [facility] with a chief complaint of shortness of breath. This has been going on for several months but worsening recently. Workup in the emergency room included a chest x-ray which showed small pleural effusions with mild CHF, creatinine was 2.4, troponin was unremarkable, urine natruretic peptide was 700. Patient was given Lasix in the emergency room, during ambulation, the patient's pulse ox dropped to 88%. Patient was admitted to PCU, placed on IV Lasix, an echocardiogram was obtained which showed an intermediate ejection fraction of 45%. 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 Patient's medications were changed, multiple discussions were carried out with the patient and his concerning his medication adjustments. His customs brokerage manager office was contacted and appointment was made for him the day after he was discharged on 05/16/18. On 05/16/18, patient was seen and examined: On examination he appeared in good health and spirits. Vital signs as documented. Skin warm and dry and without overt rashes. Neck without JVD. Lungs clear. Heart exam notable for regular rhythm, normal sounds and absence of murmurs, rubs or gallops. Abdomen unremarkable and without evidence of organomegaly, masses, or abdominal aortic enlargement. Extremities-+1 pitting edema was noted over the patient's right lower leg, there was nonpitting edema noted in the left lower leg.. Neuro: Cranial nerves II through XII are grossly intact, no focal motor deficits were noted, sensation to light touch and pinprick intact. Psych: Patient is alert and oriented x3, he does not appear anxious or depressed On 05/16/18, patient was seen and examined and discharged to home in stable condition - Physical Exam Vital Signs Temp Pulse Resp BP Pulse Ox 97.9 F 79 16 130/60 H 94 05/16/18 09:15 05/16/18 11:00 05/16/18 09:15 05/16/18 09:15 05/16/18 09:15 Oxygen Flow Rate (L/min) 2 Oxygen Delivery Method Room Air Weight: 99.7 kg Body Mass Index (BMI) 35.4 Discharge Activity: Return to Normal Activity Home Medications: Medications to take at Discharge allopurinol 100 mg tablet 100 mg PO BID 05/03/18 ascorbic acid (vitamin C) 500 mg tablet 500 mg PO DAILY 05/03/18 aspirin 81 mg chewable tablet 81 mg PO DAILY 05/03/18 furosemide 40 mg tablet 40 mg PO BID 05/03/18 magnesium oxide 400 mg capsule 400 mg PO BID cap 05/03/18 metoprolol succinate ER 50 mg tablet,extended release 24 hr 25 mg PO BID 05/03/18 multivitamin tablet 1 tab PO DAILY 05/03/18 nitroglycerin 0.4 mg sublingual tablet 0.4 mg SUBLINGUAL Q5-15M PRN 05/03/18 omeprazole 20 mg capsule,delayed release 20 mg PO DAILY 05/03/18 rosuvastatin 5 mg tablet 5 mg PO QHS 05/03/18 Amlodipine Besylate/Valsartan [Exforge 5-320 mg Tablet] 1 each PO DAILY #30 tablet 05/16/18 Following Prescrptions Were Given to Patient: Amlodipine Besylate/Valsartan [Exforge 5-320 mg Tablet] 1 each PO DAILY #30 tablet Primary Care Physician: Zack Stacy [Primary Care Provider] - Please follow up with your Primary Care Physician in: in two weeks Please Follow Up With: Lenin Ramirez When: tomorrow at 11:45 am Please Follow Up With: Zack Stacy Disposition: Home Minutes spent on discharge:: 32 Patient Condition:: Stable Medical Necessity - Tobacco Use Smoking Status: Former smoker Tobacco Use: Cigarettes Meaningful Use Info Meaningful Use Diagnoses (Choose all that apply): CHF - CHF MARITA/ARB ordered at discharge?: Yes Documented LVEF (%): 45 Code Visit Inpatient E&M: 17983 Disch Hosp
--- NOTE | 2018-05-20 10:17 | DS.PCM_ITS ---
Discharge Date and Diagnosis Date of Admission: 05/14/18 Date of Discharge: 05/16/18 - Primary Discharge Diagnosis 1 acute diastolic congestive heart failure-with intermediate ejection fraction of 45% #2 lower extremity edema-probably at least in part from his use of amlodipine on a backdrop of suspected pulmonary hypertension and known chronic kidney disease #3 chronic obstructive pulmonary disease-suspected #4 hypertension #5 coronary artery disease #6 stage III chronic kidney disease- from hypertension #7 hyperlipidemia - Secondary Discharge Diagnosis Chronic Problems (Last Reviewed 05/14/18 @ 15:35 by Andrey Soliman DO) Secondary pulmonary hypertension (Chronic) MARCELO (obstructive sleep apnea) (Chronic) 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) Lumbosacral stenosis (Chronic) Erectile dysfunction (Chronic) BPH (benign prostatic hyperplasia) (Chronic) Chronic kidney disease, stage 3 (Chronic) Lumbar disc disease with radiculopathy (Chronic) GERD (gastroesophageal reflux disease) (Chronic) Gout (Chronic) COPD (chronic obstructive pulmonary disease) (Chronic) Coronary atherosclerosis of [place] coronary artery (Chronic) HTN (hypertension) (Chronic) HLD (hyperlipidemia) (Chronic) Obesity (Chronic) Hospital Course and Treatment Operations: None Procedures: 2-D Echocardiogram Summary of Care Provided: The patient is a 72 year old M who was seen in the emergency room at [facility] with a chief complaint of shortness of breath. This has been going on for several months but worsening recently. Workup in the emergency room included a chest x-ray which showed small pleural effusions with mild CHF, creatinine was 2.4, troponin was unremarkable, urine natruretic peptide was 700. Patient was given Lasix in the emergency room, during ambulation, the patient's pulse ox dropped to 88%. Patient was admitted to PCU, placed on IV Lasix, an echocardiogram was obtained which showed an intermediate ejection fraction of 45%. Patient's medications were reviewed and it was felt that his amlodipine is contributing to his lower extremity edema, patient had also not been taking the prescribed amount of Lasix from his circuit designer because his PCP had reduced the Lasix. Patient's medications were changed, multiple discussions were carried out with the patient and his concerning his medication adjustments. His weights and measures sealer office was contacted and appointment was made for him the day after he was discharged on 05/16/18. On 05/16/18, patient was seen and examined: On examination he appeared in good health and spirits. Vital signs as documented. Skin warm and dry and without overt rashes. Neck without JVD. Lungs clear. Heart exam notable for regular rhythm, normal sounds and absence of murmurs, rubs or gallops. Abdomen unremarkable and without evidence of organomegaly, masses, or abdominal aortic enlargement. Extremities-+1 pitting edema was noted over the patient's right lower leg, there was nonpitting edema noted in the left lower leg.. Neuro: Cranial nerves II through XII are grossly intact, no focal motor deficits were noted, sensation to light touch and pinprick intact. Psych: Patient is alert and oriented x3, he does not appear anxious or depressed On 05/16/18, patient was seen and examined and discharged to home in stable condition - Physical Exam Vital Signs Temp Pulse Resp BP Pulse Ox 97.9 F 79 16 130/60 H 94 05/16/18 09:15 05/16/18 11:00 05/16/18 09:15 05/16/18 09:15 05/16/18 09:15 Oxygen Flow Rate (L/min) 2 Oxygen Delivery Method Room Air Weight: 99.7 kg Body Mass Index (BMI) 35.4 Discharge Activity: Return to Normal Activity Home Medications: Medications to take at Discharge allopurinol 100 mg tablet 100 mg PO BID 05/03/18 ascorbic acid (vitamin C) 500 mg tablet 500 mg PO DAILY 05/03/18 aspirin 81 mg chewable tablet 81 mg PO DAILY 05/03/18 furosemide 40 mg tablet 40 mg PO BID 05/03/18 magnesium oxide 400 mg capsule 400 mg PO BID cap 05/03/18 metoprolol succinate ER 50 mg tablet,extended release 24 hr 25 mg PO BID multivitamin tablet 1 tab PO DAILY 05/03/18 nitroglycerin 0.4 mg sublingual tablet 0.4 mg SUBLINGUAL Q5-15M PRN 05/03/18 omeprazole 20 mg capsule,delayed release 20 mg PO DAILY 05/03/18 rosuvastatin 5 mg tablet 5 mg PO QHS 05/03/18 Amlodipine Besylate/Valsartan [Exforge 5-320 mg Tablet] 1 each PO DAILY #30 tablet 05/16/18 Following Prescrptions Were Given to Patient: Amlodipine Besylate/Valsartan [Exforge 5-320 mg Tablet] 1 each PO DAILY #30 tablet Primary Care Physician: Zack Stacy [Primary Care Provider] - Please follow up with your Primary Care Physician in: in two weeks Please Follow Up With: Lenin Ramirez When: tomorrow at 11:45 am Please Follow Up With: Zack Stacy Disposition: Home Minutes spent on discharge:: 32 Patient Condition:: Stable Medical Necessity - Tobacco Use Smoking Status: Former smoker Tobacco Use: Cigarettes Meaningful Use Info Meaningful Use Diagnoses (Choose all that apply): CHF - CHF MARITA/ARB ordered at discharge?: Yes Documented LVEF (%): 45 Code Visit Inpatient E&M: 67341 Disch Hosp
== END 2018-05-16 14:18 | disposition home or self-care (01) | DRG 291 ==
LOC: ED 14:41 → PCU 14:56
PROVIDERS: Emergency Provider Emergency Medicine; Family Provider Family Medicine; PCP Family Medicine; Visit Provider Internal Medicine
DX: I13.0 Hypertensive heart and chronic kidney disease with heart failure and stage 1 through stage 4 chronic kidney disease, or unspecified chronic kidney disease (principal); I50.31 Acute diastolic (congestive) heart failure; N18.3 Chronic kidney disease, stage 3 (moderate); I25.10 Atherosclerotic heart disease of native coronary artery without angina pectoris; Z95.5 Presence of coronary angioplasty implant and graft; E78.5 Hyperlipidemia, unspecified; Z79.899 Other long term (current) drug therapy; J44.9 Chronic obstructive pulmonary disease, unspecified; I27.20 Pulmonary hypertension, unspecified; Z87.891 Personal history of nicotine dependence; R60.0 Localized edema; T46.1X5A Adverse effect of calcium-channel blockers, initial encounter
CPT/HCPCS: 36415; 71046; 80048; 80053; 81001; 83735; 83880; 84443; 84484; 85025; 93005; 93306; 99285; A4216; J1940

== ENCOUNTER → 2018-05-18 08:31 | Outpatient (CLI) | payer MEDICARE, OTHER, SELFPAY ==
[2018-05-08 13:32] VITALS: BMI 36.6
[2018-05-14 16:05] VITALS: BMI 35.4
[2018-05-18 09:34] VITALS: PULSE 100; PULSE 102; PULSE 105; PULSE 55; PULSE 57; PULSE 73; PULSE 93; O2SAT 91; O2SAT 93; O2SAT 94; O2SAT 95; O2SAT 96
--- NOTE | 2018-05-18 12:32 | PCM.PSN.6M ---
PSN 6 Minute Walk Test - 6 Minute Walk Test 6 Minute Walk Test: 6 Minute Walk Test PSN:6-Minute Walk Test Start: 05/18/18 09:34 Freq: Status: Active Protocol: [id number] Document 05/18/18 09:34 [facility] (Rec: 05/18/18 09:39 [facility] [id number]) 6 Minute Walk Test Date Performed 05/18/18 Time Performed 09:00 Height 5 ft 7 in Weight: 219 lb Weight in Pounds 219.[address]: Ricky Ramirez Assistive device used: None Pre-test Oxygen Delivery Method Room Air Pulse Ox (%) 93 Pulse Rate (60-100 beats/min) 57 L Dyspnea [place] Scale (0-10) 2 1st minute Oxygen Delivery Method Room Air Pulse Ox (%) 95 Pulse Rate (60-100 beats/min) 73 Dyspnea [place] Scale (0-10) 3 Reported Symptoms Increased Work of Breathing 2nd minute Oxygen Delivery Method Room Air Pulse Ox (%) 93 Pulse Rate (60-100 beats/min) 93 Dyspnea [place] Scale (0-10) 4 Number of Rests Taken 1 Reported Symptoms Increased Work of Breathing 3rd minute Oxygen Delivery Method Room Air Pulse Ox (%) 91 Pulse Rate (60-100 beats/min) 100 Dyspnea [place] Scale (0-10) 4 Number of Rests Taken 1 Reported Symptoms Increased Work of Breathing 4th minute Oxygen Delivery Method Room Air Pulse Ox (%) 91 Pulse Rate (60-100 beats/min) 105 H Dyspnea [place] Scale (0-10) 5 Number of Rests Taken 1 Reported Symptoms Increased Work of Breathing 5th minute Oxygen Delivery Method Room Air Pulse Ox (%) 94 Pulse Rate (60-100 beats/min) 105 H Dyspnea [place] Scale (0-10) 4 Number of Rests Taken 1 Reported Symptoms Increased Work of Breathing 6th minute Oxygen Delivery Method Room Air Pulse Ox (%) 93 Pulse Rate (60-100 beats/min) 102 H Dyspnea [place] Scale (0-10) 4 Reported Symptoms Increased Work of Breathing Post-test Oxygen Delivery Method Room Air Pulse Ox (%) 96 Pulse Rate (60-100 beats/min) 55 L Dyspnea [place] Scale (0-10) 2 Full Laps Walked 10 Partial Lap, Number of Tiles Walked 34 Total Distance Walked (ft) 624 - Interpretation Interpretation: The patient ambulated 624 feet over the course of 6 minutes beginning on room air without assistive devices, but with frequent breaks. Pretesting oxygen saturation was noted to be 93% on room air. With ambulation, the blanca oxygen saturation was 91%. Although there was evidence of impaired walk distance, there was no significant exertional oxygen desaturation. However, the patient's frequent breaks throughout testing may have decreased the sensitivity for detecting significant exertional hypoxemia. - Recommendations Recommendations: There is no indication for the use of supplemental oxygen at this time.
== END ==
PROVIDERS: Family Provider Family Medicine; PCP Family Medicine; Referring Provider Internal Medicine Critical Care Medicine; Visit Provider Internal Medicine Critical Care Medicine
DX: R06.09 Other forms of dyspnea (principal)
CPT/HCPCS: 94618

== ENCOUNTER → 2018-05-22 08:37 | Outpatient (CLI) | payer MEDICARE, OTHER, SELFPAY ==
[2018-05-08 13:32] VITALS: BMI 36.6
[2018-05-14 16:05] VITALS: BMI 35.4
--- NOTE | 2018-05-23 09:40 | PFT ---
INTRODUCTION: The patient is a 72-year-old male that presents for pulmonary function studies secondary to a diagnosis of dyspnea on exertion. Respiratory therapy reports good patient effort. Bronchodilators were used during testing. INTERPRETATION: Forced expiration spirometry demonstrates the presence of a severe large airways obstructive ventilatory defect. There was no significant response to aerosolized bronchodilators. Spirograms are of fair quality and do not plateau indicating slow emptying of the lungs. Body plethysmography was performed and reveals a decreased TLC to 4.26 L, 74% of predicted, indicative of a mild restrictive ventilatory impairment. The remainder of the lung volumes are symmetrically reduced. Diffusing capacity by single breath CO is within normal limits at 75% of predicted. IMPRESSION: These pulmonary function studies demonstrate the presence of an irreversible severe mixed ventilatory defect with preserved diffusing capacity. There are no previous pulmonary function studies available for comparison.
== END ==
PROVIDERS: Family Provider Family Medicine; PCP Family Medicine; Referring Provider Internal Medicine Critical Care Medicine; Visit Provider Internal Medicine Critical Care Medicine
DX: R06.09 Other forms of dyspnea (principal)
CPT/HCPCS: 94060; 94726; 94729

== ENCOUNTER → 2018-06-26 20:00 | Outpatient (CLI) | payer MEDICARE, OTHER, SELFPAY ==
[2018-05-08 13:32] VITALS: BMI 36.6
== END ==
PROVIDERS: Family Provider Family Medicine; PCP Family Medicine; Referring Provider Internal Medicine Critical Care Medicine; Visit Provider Internal Medicine Critical Care Medicine
DX: G47.33 Obstructive sleep apnea (adult) (pediatric) (principal)
CPT/HCPCS: 95811

== ENCOUNTER → 2018-07-27 | Outpatient (CLI) | payer MEDICARE, OTHER, SELFPAY ==
[2018-05-14 16:05] VITALS: BMI 35.4
--- NOTE | 2018-07-27 17:06 | CT_ITS ---
STUDY: CT CHEST WITHOUT CONTRAST REASON FOR EXAM: Male, 73 years old. Nodule. RADIATION DOSAGE (If Supplied By Facility): CTDIvol = ( 18.98 ) mGy, DLP = ( 663.98 ) mGycm TECHNIQUE: Transaxial imaging was performed without the administration of intravenous contrast material. Multiplanar coronal and sagittal images were reformatted. Individualized dose optimization techniques were used for this CT. COMPARISON: Chest, May 14, 2018. FINDINGS: The lungs are mildly hyperexpanded with minimal emphysematous changes. No focal infiltrate. There is a 4 mm soft tissue nodule in the left posterior costophrenic angle best seen on image 102 of series 4. No other masses are seen. There is a small right pleural effusion. Normal heart and pericardium. There are calcifications of the coronary arteries. There is nonspecific subcentimeter prevascular, AP window and paratracheal and subcarinal lymphadenopathy. Largest lymph node, in the AP window measures 1.2 x 0.8 x 0.5 cm. Normal hilar regions. Normal unenhanced pulmonary arteries. There is atherosclerotic calcification of the aortic arch with tortuosity and elongation of the aortic arch and descending thoracic aorta. There are multi-level degenerative changes of the thoracic spine. There is no demonstrated abnormality of the visualized upper abdomen. CT/Chest without Contrast IMPRESSION: 1. Tiny soft tissue nodule in the posterior costophrenic angle. This requires no further follow-up in a low risk patient. A 12 month follow-up CT should be considered in a high risk patient by Arianna Society criteria. 2. Small right pleural effusion. 3. Mild emphysematous changes. 4. Atherosclerotic changes of the coronary arteries and thoracic aorta. 5. Nonspecific mediastinal lymphadenopathy. Electronically Signed: Robin Olivo DO at 8:39 EDT Tel [phone], Service support ,
== END | disposition home or self-care (01) ==
LOC: CT 17:05
PROVIDERS: Family Provider Family Medicine; PCP Family Medicine; Referring Provider Internal Medicine Critical Care Medicine; Visit Provider Internal Medicine Critical Care Medicine
DX: R91.1 Solitary pulmonary nodule (principal)
CPT/HCPCS: 71250

== ENCOUNTER → 2018-09-20 | Outpatient (CLI) | payer MEDICARE, OTHER, SELFPAY ==
[2018-08-01 12:43] VITALS: BMI 34.2
--- NOTE | 2018-09-20 14:34 | PFTCOMP ---
COMPLETE PULMONARY FUNCTION TEST INTERPRETATION Brief HPI: Patient is a 73 year old male, currently under the care of myself, who presents to [facility] for complete pulmonary function tests secondary to diagnosis of COPD. Respiratory therapist reports good effort and reproducible results. Interpretation: Forced expiration spirometry shows a moderate large airways obstructive ventilatory defect with an FEV1 of 60% predicted. There is no significant bronchodilator response by strict ATS criteria. Spirograms are of good quality and plateau slowly, indicating slowly emptying areas of the lungs. The respiratory flow volume loop shows decreased expiratory flow rates at all lung volumes consistent with airway obstruction. Lung volumes by body plethysmography show a normal total lung capacity at 5.16 L, 90% predicted. All other lung volumes are within normal limits. Diffusion capacity by carbon monoxide is decreased at 67% predicted. The airway resistance is elevated. Compared to previous pulmonary function tests from 05/22/2018, there is been a significant improvement in FVC, FEV1 and total lung capacity by 23%, 38% and 21% respectively.. Impression: Irreversible moderate large airways obstructive ventilatory defect with a symmetric reduction diffusing capacity, and a pattern consistent with COPD. There has been some improvement compared to previous.
== END | disposition home or self-care (01) ==
LOC: PSN 09:38
PROVIDERS: Family Provider Family Medicine; PCP Family Medicine; Referring Provider Internal Medicine Critical Care Medicine; Visit Provider Internal Medicine Critical Care Medicine
DX: J44.9 Chronic obstructive pulmonary disease, unspecified (principal); I27.20 Pulmonary hypertension, unspecified
CPT/HCPCS: 94060; 94726; 94729

== ENCOUNTER 2019-03-09 03:10 | Emergency (ER) | payer MEDICARE, OTHER, SELFPAY ==
[2019-01-01 10:25] VITALS: BMI 34.6
[2019-03-09 03:11] VITALS: BP 177/90; PULSE 91; RESP 23; TEMP 36.9; O2SAT 96; BMI 35.4
[2019-03-09 03:14] VITALS: O2SAT 94
--- NOTE | 2019-03-09 03:35 | EKG12_ITS ---
Test Reason : Blood Pressure : / mmHG Vent. Rate : 087 BPM Atrial Rate : 087 BPM P-R Int : 224 ms QRS Dur : 088 ms QT Int : 332 ms P-R-T Axes : 080 -36 007 degrees QTc Int : 399 ms Sinus rhythm with 1st degree A-V block with occasional Premature ventricular complexes Left axis deviation Pulmonary disease pattern Inferior infarct , age undetermined Abnormal ECG Confirmed by DUYEN RANDHAWA ([id number]), editor publications ALBERTINA MELGAR ([id number]) on 03/12/2019 2:35:41 PM Referred By: NORMAN Confirmed By:DUYEN RANDHAWA
[2019-03-09 03:50] VITALS: PULSE 88; RESP 18
[2019-03-09] MEDS: Ipratropium/Albuterol Sulfate 3 ML AMPUL.NEB INHALATION (03:50)
--- NOTE | 2019-03-09 03:56 | ED.DCSUM_ITS ---
History of Present Illness Chief Complaint: Shortness of Breath Informant: Patient Onset: Days - 2 Context: Gradual Onset Timing: Intermittent Quality: ELLIOTT Location: chest Current Severity: Gone Maximum Severity: Mild Worsened by: - - exertion, coughing Relieved by: - - rest Associated Symptoms: Nasal Congestion, Chest Pain - tightness mid-chest, mild, Productive Cough. Negative for: Headache, Sinus Pressure, Vomiting, Hemoptysis Narrative: Patient has a history of COPD. He has had increased sputum production, it is clear, no fevers or chills and very minimal dyspnea, he does not have a rescue inhaler or aerosols at home and has not been using any albuterol in any way. He is having some chest tightness that is been constant for a day or more. States he has a history of pneumonia and wanted to catch it early. Chronic swelling in his legs is unchanged. No orthopnea. History of stents in his heart but no heart failure. - Past Medical History (1) Bilateral leg edema Status: Chronic (2) (HFpEF) heart failure with preserved ejection fraction Status: Chronic (3) BPH (benign prostatic hyperplasia) Status: Chronic (4) COPD (chronic obstructive pulmonary disease) Status: Chronic (5) Chronic kidney disease, stage 3 Status: Chronic (6) Coronary atherosclerosis of [place] coronary artery Status: Chronic (7) GERD (gastroesophageal reflux disease) Status: Chronic (8) Gout Status: Chronic (9) HLD (hyperlipidemia) Status: Chronic (10) HTN (hypertension) Status: Chronic (11) Lumbar disc disease with radiculopathy Status: Chronic (12) Lumbosacral stenosis Status: Chronic (13) MARCELO (obstructive sleep apnea) Status: Chronic Comment: Should be on 25/01 ideally. 12/16 for acclimation now. (14) Secondary pulmonary hypertension Status: Chronic (15) Stage 3 severe COPD by GOLD classification Status: Chronic Past Medical History - Allergies and Home Meds Allergies/Adverse Reactions: Allergies Penicillins Allergy (Severe, Verified 03/09/19 03:10) Rash, 105 temp aspirin Adverse Reaction (Mild, Verified 03/09/19 03:10) rash ENTERIC COATED ONLY; IS ABLE TO TAKE REGULAR ASPIRIN Primary Care Physician: Zack Stacy [Primary Care Provider] - Surgical History: total knee arthroplasty Lives: Spouse/ Significant Other Smoking Status: Former smoker Review of Systems General: Denies: Chills, Fever, Sweats Eyes: Denies: Visual changes - bilaterally, Diplopia ENT: Denies: Rhinorrhea, Sore throat Cardiovascular: Reports: Chest pain. Denies: Palpitations, Heart racing Respiratory: Reports: Dyspnea, Cough, Sputum, Dyspnea on exertion. Denies: Orthopnea Gastrointestinal: Denies: Abdominal pain, Nausea, Vomiting, Diarrhea, Melena, Hematochezia Genitourinary: Denies: Dysuria, Hematuria, Frequency Musculoskeletal: Reports: Swelling. Denies: Back pain, Extremity Pain Skin: Denies: Rash, Wounds Neurological: Denies: Headache, Weakness, Numbness Physical Exam Vital Signs/Narrative: Vital Signs Temp Pulse Resp BP Pulse Ox 03/09/19 03:11 98.5 F 91 23 H 177/90 H 96 Inital Vital Signs reviewed: Yes General: Well nourished, Well developed, Obese, - - No acute distress. Conversive in full sentences. Head: Normocephalic, Atraumatic Eyes: Perrl, EOMI Ears: Normal external canal, TM's clear Nose: Normal Inspection, No Rhinorrhea Mouth/Throat: Normal Inspection, No Posterior Erythema Neck: Supple, Nontender, No Lymphadenopathy, - - No JVD Cardiovascular: Regular rate, Regular rhythm, No murmurs Respiratory: No distress, CTA bilaterally, Chest nontender, Diminished - Throughout, symmetrically Abdomen: Soft, Nontender, Nondistended, Normal bowel sounds Back: Nontender, Normal Inspection Extremities: Nontender, Edema - 1+ bilateral lower extremity to mid mobley, symmetric. Negative for: Calf Tenderness Skin: Normal color, No rash, No Trauma Neurological: Alert, Oriented x3, Cranial nerves II-XII grossly intact, Normal Strength, Normal Sensation, Normal Gait Psychological: Normal affect, Normal Mood Diagnostic/Tx/Re-eval Chest X-Ray - ED: 2 View, Read by ED Physician, No Acute Disease, Chronic Changes, No Infiltrates - Rhythm Strip Rhythm Strip: Sinus Rhythm Rate: 87 Ectopy: PVC(s) - EKG Initial EKG Interpretation: Sinus Rhythm, No Acute Injury Pattern, Non-Specific ST Changes - diffuse, - - left axis Prior: Unchanged - Medical Decision Making Chest x-ray shows no acute pneumonia. EKG shows nothing acute. His chest discomfort feels much better after a duo nebulizer treatment. Plan is to treat him like a COPD exacerbation, however am not sure he will need the prednisone since he is really not needed any albuterol to a significant degree. We will write him a prescription for the prednisone, and we discussed usage of that, as well as an antibiotic. He is comfortable with outpatient treatment, as he is not hypoxemic or dyspneic. ED Disposition - Plan for ED Patient: Disposition: Home or Assisted Living Diagnosis: COPD exacerbation, Acute bronchitis Instructions: BRONCHITIS, Antiobiotic Treatment (Adult), Copd Flare Prescriptions: Prednisone [Deltasone] 40 mg PO DAILY #10 tab [id number] Azithromycin [Zithromax Z-Biju] 250 mg PO UD #1 box Transmission Status: Pending to [id number] Referrals: Zack Stacy [Primary Care Provider] - 3-5 Days if not improving
--- NOTE | 2019-03-09 04:05 | RAD_ITS ---
STUDY: X-RAY CHEST REASON FOR EXAM: Male, 73 years old. COUGH AND SOB STARTING TODAY TECHNIQUE: PA and lateral chest COMPARISON: 05/14/2018 FINDINGS: There is mild upper lobe scarring and scattered bulla. There is no demonstrated pleural abnormality. Normal size heart. Normal mediastinum and isaura. Normal visualized pulmonary arteries. Normal visualized aortic arch and descending thoracic aorta. Normal visualized thoracic spine. Normal visualized ribs, clavicles, and shoulders. There is no demonstrated abnormality of the visualized soft tissue structures of the upper abdomen. RAD/Chest PA and Lateral IMPRESSION: Mild upper lobe scarring and bulla Electronically Signed: Donaldo Rascon, at 5:29 EST Tel , Service support ,
[2019-03-09 05:19] VITALS: RESP 20; O2SAT 96
--- NOTE | 2019-03-09 05:22 | ED.RN ---
CALLED X-RAY FOR RESULTS IT HAS BEEN OVER 1HR 15 MIN. CARON SAID SHE WOULD CALL.
[2019-03-09 05:39] VITALS: BP 145/90; PULSE 90; RESP 20; O2SAT 92
== END 2019-03-09 05:40 | disposition home or self-care (01) ==
PROVIDERS: Emergency Provider Emergency Medicine; Family Provider Family Medicine; PCP Family Medicine
DX: J44.0 Chronic obstructive pulmonary disease with (acute) lower respiratory infection (principal); J44.1 Chronic obstructive pulmonary disease with (acute) exacerbation; J20.9 Acute bronchitis, unspecified; I13.0 Hypertensive heart and chronic kidney disease with heart failure and stage 1 through stage 4 chronic kidney disease, or unspecified chronic kidney disease; N18.3 Chronic kidney disease, stage 3 (moderate); I50.32 Chronic diastolic (congestive) heart failure; I27.29 Other secondary pulmonary hypertension; I25.10 Atherosclerotic heart disease of native coronary artery without angina pectoris; E78.5 Hyperlipidemia, unspecified; N40.0 Benign prostatic hyperplasia without lower urinary tract symptoms; M10.9 Gout, unspecified; G47.33 Obstructive sleep apnea (adult) (pediatric); K21.9 Gastro-esophageal reflux disease without esophagitis; E66.9 Obesity, unspecified; Z79.82 Long term (current) use of aspirin; Z79.899 Other long term (current) drug therapy; Z88.6 Allergy status to analgesic agent; Z88.0 Allergy status to penicillin; Z87.891 Personal history of nicotine dependence; Z87.01 Personal history of pneumonia (recurrent); Z95.5 Presence of coronary angioplasty implant and graft
CPT/HCPCS: 71046; 93005; 94640; 99282

== ENCOUNTER → 2019-04-09 11:32 | Outpatient (CLI) | payer MEDICARE, OTHER, SELFPAY ==
[2019-04-09 10:29] VITALS: BMI 35.4
[2019-04-09 12:00] LABS: Hematocrit 41.5 % (40-54); Hemoglobin 13.8 g/dL (13.0-16.5); Mean Corp Hgb Conc 33.3 g/dL (32-36); Mean Corpuscular Hgb 30.5 pg (27.0-32.0); Mean Corpuscular Volume 91.8 fL (80-94); Mean Platelet Vol. 9.2 fl (6.2-12.0); Platelet Count 254 K/mm3 (150-450); RBC Distribution Width CV 13.4 % (11.6-14.6); RBC Distribution Width SD 44.6 fl (35.1-43.9); Red Blood Count 4.52 M/mm3 (4.6-6.2); White Blood Count 8.5 K/mm3 (4.4-11.0)
[2019-04-09 12:50] LABS: Iron 63 ug/dL (65-175); Iron Binding Capacity,Total 276 ug/dL (250-450); PERCENT IRON SATURATION 22.8 % (15.0-55.0)
== END ==
PROVIDERS: PCP Family Medicine; Referring Provider Nurse Practitioner Acute Care; Visit Provider Nurse Practitioner Acute Care
DX: I50.30 Unspecified diastolic (congestive) heart failure (principal); G25.81 Restless legs syndrome
CPT/HCPCS: 36415; 83540; 83550; 85027

== ENCOUNTER 2019-11-14 10:47 | Inpatient (IN) | payer MEDICARE, OTHER, SELFPAY ==
[2019-08-01 08:30] VITALS: BMI 35.4
[2019-11-14] VITALS (13 sets, daily range): BP systolic 132–181; BP diastolic 69–131; PULSE 69–84; RESP 14–22; TEMP 36.3–36.8; O2SAT 92–95; BMI 35.9; BMI 33.9
--- NOTE | 2019-11-14 11:06 | EKG12_ITS ---
Test Reason : SOB Blood Pressure : / mmHG Vent. Rate : 080 BPM Atrial Rate : 080 BPM P-R Int : 214 ms QRS Dur : 104 ms QT Int : 384 ms P-R-T Axes : 067 015 031 degrees QTc Int : 442 ms Sinus rhythm with 1st degree A-V block with Premature supraventricular complexes Low voltage QRS Nonspecific ST and T wave abnormality Abnormal ECG Confirmed by JEREMIAS GONZALEZ, MAGGIE ([id number]), science editor LIZ PADILLA ([id number]) on 11/20/2019 10:28:43 AM Referred By: BRAXTON Confirmed By:MAGGIE MCDOWELL MD
--- NOTE | 2019-11-14 11:07 | ED.DCSUM_ITS ---
- ER Visit Summary Date of Service: 11/14/19 Chief Complaint: Dyspnea History of Present Illness: The patient is a 74 M who presents with dyspnea that is been getting worse over the past 2 weeks. Patient states his breathing is worse with any exertion. Patient states his breathing is better when he sits u p. Patient states he has been taking albuterol aerosols at home with some relief. Patient states he feels congested in his chest. Patient admits to a cough but states he is unable to produce any sputum. Patient admits to some rhinorrhea but denies any sore throat. Patient denies any fevers or chills. Patient denies any chest pain. Patient states he recently was told to increase his Lasix to 1 pill in the morning and a half a pill in the afternoon. Patient states he has been doing this for the past 2 days. Patient denies any recent weight gain. Patient admits to chronic edema of his lower extremities but states they are no worse than usual. Physical Examination: Vital signs are stable. Patient is afebrile. Patient is in no acute distress. Oral mucosa is pink and moist. Neck is supple. Trachea is midline. There is no JVD. Heart was regular rate and rhythm. Lungs are diminished bilaterally. There is good respiratory effort noted. Abdomen is soft. Bowel sounds are normal. There is no tenderness. Cranial nerves II through XII are intact. There are no focal motor or sensory deficits noted. Extremities are intact. There is 2+ edema of the lower extremities bilaterally. There is no calf tenderness. Test Results: CBC was essentially within normal limits. BNP was elevated at 3350. BUN and creatinine were slightly elevated but were consistent with prior results. Troponin was normal. Chest x-ray shows evidence of congestive heart failure. This was interpreted by the radiologist and reviewed by myself Emergency Department Course and Treatment: Patient was given Lasix and nitroglycerin. Patient was advised of his findings. I recommended admission to the hospital. Patient was agreeable with this. Case was discussed with the hospitalist, Dr. Nogueira. He recommended obtaining a COVID swab. This was done and was negative. Patient will be admitted to PCU. Patient and his understood and were agreeable with the plan. All questions were answered. Disposition: Admit to hospital Impression: 1. Congestive heart failure exacerbation This note was generated with [employer] software. It may contain incorrect words, spelling, and punctuation that were not noted in review of the chart prior to signing ED Disposition - Plan for ED Patient: Disposition: Acute Care Hospital [facility]
--- NOTE | 2019-11-14 11:50 | RAD_ITS ---
STUDY: X-RAY CHEST REASON FOR EXAM: Male, 74 years old. Shortness of breath and cough TECHNIQUE: Single AP portable view of the chest. COMPARISON: 03/09/2019 FINDINGS: EKG leads overlie the chest The lungs are expanded with superimposed interstitial edema and bilateral pleural effusions. Findings suggest CHF though bilateral infiltrates cannot be excluded. Normal size heart. Normal mediastinum and isaura. Normal visualized pulmonary arteries. There is atherosclerotic calcification of the aortic arch with tortuosity. There are diffuse degenerative changes of the visualized thoracic spine. There is degenerative osteoarthritis of the bilateral shoulders. There is no demonstrated abnormality of the visualized soft tissue structures of the upper abdomen. RAD/Chest 1 View (Portable) IMPRESSION: Diffuse interstitial edema with small bilateral pleural effusions. Findings suggest CHF, follow-up recommended to assure resolution Electronically Signed: Abraham Lawton MD at 12:05 EDT , Service support ,
[2019-11-14 11:58] LABS: Absolute Neutrophil Count 5.3 X10^3/uL (2.0-7.7); Basophil# 0.05 X10^3/uL; Basophil% 0.7 % (0-1); Eosinophil# 0.17 X10^3/uL; Eosinophils% 2.3 % (0-5); Hematocrit 33.1 % (40-54); Hemoglobin 11.1 g/dL (13.0-16.5); Lymphocyte % 17.4 % (19-41); Mean Corp Hgb Conc 33.5 g/dL (32-36); Mean Corpuscular Hgb 30.5 pg (27.0-32.0); Mean Corpuscular Volume 90.9 fL (80-94); Mean Platelet Vol. 9.8 fl (6.2-12.0); Monocyte# 0.58 X10^3/uL; Monocyte% 7.8 % (0-10); NRBC Flagged by Analyzer 0 % (0-5); Neutrophil # 5.33 X10^3/uL (2.7-7.7); Neutrophil % 71.5 % (47-70); Platelet Count 227 K/mm3 (150-450); RBC Distribution Width CV 14.2 % (11.6-14.6); RBC Distribution Width SD 47.6 fl (35.1-43.9); Red Blood Count 3.64 M/mm3 (4.6-6.2); White Blood Count 7.5 K/mm3 (4.4-11.0)
[2019-11-14 12:18] LABS: ALB/GLOB Ratio 1.1 RATIO (0.9-2.4); AST(SGOT) 33 U/L (15-37); Alanine Aminotransfer ALT/SGPT 16 U/L (16-61); Albumin, Serum 3.5 g/dL (3.2-5.0); Alkaline Phosphatase 103 U/L (45-117); Anion Gap 8 (5-15); BUN 41 mg/dL (7-18); BUN/Creat Ratio 16.3 RATIO (10-20); Calcium,Total 8.8 mg/dL (8.5-10.1); Chloride 103 mmol/L (98-107); Creatinine, Serum 2.52 mg/dL (0.70-1.30); EST Glomerular Filtration Rate 27 mL/min (>60); Est Glom Filt Rate - Afr Amer 32 mL/min (>60); Estimated Creatinine Clearance 24.41 ml/min; Globulin 3.1 g/dL (2.2-4.2); Glucose 105 mg/dL (74-106); Potassium 4.9 mmol/L (3.5-5.1); Protein, Total 6.6 g/dL (6.4-8.2); Sodium Level 137 mmol/L (136-145)
--- NOTE | 2019-11-14 12:56 | HP.PCM_ITS ---
Problem List (1) Acute on chronic systolic CHF (congestive heart failure) Status: Acute (2) Stage 3 severe COPD by GOLD classification Status: Chronic (3) MARCELO (obstructive sleep apnea) Status: Chronic Comment: Should be on 25/01 (4) GERD (gastroesophageal reflux disease) Status: Chronic (5) Gout Status: Chronic (6) Coronary atherosclerosis of [place] coronary artery Status: Chronic (7) HTN (hypertension) Status: Chronic (8) HLD (hyperlipidemia) Status: Chronic (9) Obesity Status: Chronic Qualifiers: Obesity type: due to excess calories Obesity classification: adult class 1 (BMI 30 - 34.9) Serious obesity comorbidity presence: with serious comorbidity Body mass index: BMI 34.0-34.9 Qualified Code(s): E66.09 - Other obesity due to excess calories; Z68.34 - Body mass index (BMI) 34.0-34.9, adult History of Present Illness Date of Admission: 11/14/19 Chief Complaint: Shortness of breath. The patient is a 74 year old M with past medical history as mentioned above presented to the emergency room because of worsening shortness of breath. His illness started around 2 weeks ago with slowly progressing shortness of breath, initially was with moderate exertion, has been progressive, became even with minimal activity, aggravated by more activity, relieved with rest, associated with productive cough with small amount of yellow sputum as well as increasing leg edema. He mentioned that the last couple of days, he was only able to walk for few feet before he gets short of breath. He denied fever or chills. He denied chest pain, palpitation, dizziness or lightheadedness. He denied sick contacts or recent travels. He denied sore throat, nasal sinus congestion. In the emergency department, he was afebrile, heart rate stable, blood pressure was elevated, pulse ox was 95% on room air. Routine blood work was remarkable for hemoglobin of 11.1 g/dL, BUN 41, creatinine is 2.52. EKG revealed normal sinus rhythm, first-degree AV block, [place] interval of 240 ms, no acute segment changes or cardiac arrhythmias. Troponin was negative. BNP was highly elevated at 3350. Chest x-ray revealed diffuse bilateral pulmonary vascular congestion, CHF with small bilateral pleural effusion. COVID-19 PCR is negative. Patient is being admitted for acute on chronic systolic CHF. Past Medical History Past Medical History (Chronic Problems): Chronic Problems (Last Updated 11/14/19 @ 12:[address] 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) F52.8 Lumbosacral stenosis (Chronic) M48.[address] (Chronic) R93.89 Erectile dysfunction (Chronic) N52.9 BPH (benign prostatic hyperplasia) (Chronic) N40.0 Chronic kidney disease, stage 3 (Chronic) N18.3 Lumbar disc disease with radiculopathy (Chronic) M51.16 GERD (gastroesophageal reflux disease) (Chronic) K21.9 Gout (Chronic) M10.9 COPD (chronic obstructive pulmonary disease) (Chronic) J44.9 Coronary atherosclerosis of [place] coronary artery (Chronic) I25.10 HTN (hypertension) (Chronic) I10 HLD (hyperlipidemia) (Chronic) E78.5 Obesity (Chronic) E66.9 Allergies Penicillins Allergy (Severe, Verified 11/14/19 10:47) Rash, 105 temp amlodipine Allergy (Verified 11/14/19 10:47) itching and rash aspirin Adverse Reaction (Mild, Verified 11/14/19 10:47) rash ENTERIC COATED ONLY; IS ABLE TO TAKE REGULAR ASPIRIN Home Medications: Ambulatory Orders Medication Instructions Recorded allopurinol 100 mg tablet 100 mg PO BID 05/03/18 ascorbic acid (vitamin C) 500 mg 500 mg PO DAILY 05/03/18 tablet aspirin 81 mg chewable tablet 81 mg PO DAILY 05/03/18 furosemide 40 mg tablet 40 mg PO DAILY 05/03/18 magnesium oxide 400 mg PO BID cap 05/03/18 nitroglycerin 0.4 mg sublingual 0.4 mg SUBLINGUAL Q5-15M PRN 05/03/18 tablet omeprazole 20 mg tablet,delayed 20 mg PO DAILY 01/01/19 release albuterol sulfate 2.5 mg INHALATION Q4H PRN #180 ml 04/09/19 hydralazine 25 mg tablet 25 mg PO BID tab 05/03/19 Carvedilol 25 mg PO BID 11/14/19 Cholecalciferol (VIT D3) [Vitamin 3,000 unit PO DAILY 11/14/19 D] Fluticasone Propionate 2 spray INTRANASAL DAILY 11/14/19 Glycopyrrolate/Formoterol Fum 2 puff INHALATION BID 11/14/19 [Bevespi Aerosphere Inhaler] Guaifenesin [Mucinex] 1,200 mg PO DAILY 11/14/19 Montelukast Sodium 10 mg PO QPM 11/14/19 Multivitamin [Daily Multiple 1 ea PO DAILY 11/14/19 Vitamin] Rosuvastatin Calcium [Crestor] 10 mg PO QHS 11/14/19 Sacubitril/Valsartan 97-103 mg 1 tab PO BID 11/14/19 [Entresto 97 mg-103 mg Tablet] Tacrolimus 1 mg PO BID 11/14/19 hydrALAZINE [Apresoline] 50 mg PO BID 11/14/19 Surgical History: Surgical History (Last Updated 11/14/19 @ 12:[address] Lynn Nogueira MD) History of heart artery stent (Inactive) Z95.5 History of knee replacement procedure of left knee (Inactive) Z96.652 Surgical History: total knee arthroplasty Psychiatric History: No pertinent psych hx Lives: Spouse/ Significant Other Smoking Status: Former smoker Alcohol: None Drugs: None - *Family History Maternal Family History: Family History (Last Reviewed 11/14/19 @ 13:[address] Lynn Nogueira MD) Mother Hypertension CVA (cerebral vascular accident) Father Heart disease Hodgkin disease Sister Heart disease Review of Systems Constitutional: Denies: Anorexia, Chills, Fever, Weakness Eyes: Denies: Blurred vision, Double vision, Drainage, Redness HEENT: Denies: Difficulty Hearing, Ear Pain, Eye Pain, Nasal Congestion, Sore Throat Cardiovascular: Reports: Edema. Denies: Chest Pain, Chest Pressure, Chest Tightness, Heaviness, Light Headedness, Palpitations, Syncope Respiratory: Reports: Cough, Shortness of breath upon exertion, Sputum production. Denies: Pleuritic Pain, Wheezing Gastrointestinal: Denies: Abdominal Pain, Constipation, Diarrhea, Nausea, Vomiting Genitourinary: Denies: Dysuria, Frequency, Hematuria Musculoskeletal: Denies: Arm Pain, Back Pain, Foot Pain Skin: Denies: Dryness, Rash Neurological: Denies: Balance problems, Double vision, Change in Speech, Slurred speech, Confusion, Focal weakness, Headaches, Incoordination Psychiatric: Denies: Anxiety, Depression Endocrine: Denies: Change in Body Habitus, Polydipsia, Polyuria VTE Information - Inpt Only VTE Present on Admission: No VTE Mechan Device Prophylaxis: None VTE Pharm Prophylaxis ordered?: Yes - Physical Exam Vitals/I&O's: Vital Signs Temp Pulse Resp BP Pulse Ox 97.4 F L 69 16 159/86 H 95 11/14/19 10:49 11/14/19 12:02 11/14/19 12:02 11/14/19 12:02 11/14/19 12:02 Oxygen Delivery Method Room Air Weight: 229 lb Body Mass Index (BMI) 35.9 General: Alert, Oriented x3, Cooperative, No apparent distress HEENT: Atraumatic, PERRLA, EOMI, Normocephalic Oral: Moist Mucosa, No Gingival or Mucosal Lesions/ Ulcerations Neck: Supple, No JVD, Negative Carotid Bruits, Trachea Midline, Thyroid Normal Size and Texture Lungs: No rhonchi, No wheeze, Diminished, Rales, - - Decreased breath sounds bilateral more at the bases with faint bilateral basal crackles. Cardiovascular: Regular rate, Regular Rhythm, Normal S1, Normal S2, PMI Normal Abdomen: Bowel Sounds Present, Soft, Non Tender, Non-Distended, No Hepato- splenomegaly, Obese Extremities: No clubbing, No cyanosis, Edema - ++ Edema. Skin: No rashes, No breakdown Lymphatic: No Cervical, Supraclavicular, or Inguinal Adenopathy Neurological: Cranial nerves II-XII grossly intact, Motor Exam 5/5 strength throughout Psych/Mental Status: Normal Affect, Appropriate, Alert and oriented to time, place, person, mood and affect Laboratory Results 11/14/19 11:35: WBC 7.5, RBC 3.64 L, Hgb 11.1 L, Hct 33.1 L, MCV 90.9, MCH 30.5, MCHC 33.5, RDW Std Deviation 47.6 H, RDW Coeff of Nick 14.2, Plt Count 227, MPV 9.8, Immature Gran % (Auto) 0.300, Neut % (Auto) 71.5 H, Lymph % (Auto) 17.4 L, [place] % (Auto) 7.8, Eos % (Auto) 2.3, Baso % (Auto) 0.7, Absolute Neuts (auto) 5.3, Absolute Lymphs (auto) 1.30, Nucleated RBC % 0 11/14/19 11:35: Sodium 137, Potassium 4.9, Chloride 103, Carbon Dioxide 26.0, Anion Gap 8, BUN 41 H, Creatinine 2.52 H, Estim Creat Clear Calc 24.41, Est GFR (MDRD) Af Amer 32 L, Est GFR (MDRD) Non-Af 27 L, BUN/Creatinine Ratio 16.3, Glucose 105, Calcium 8.8, Total Bilirubin 0.70, AST 33, ALT 16, Alkaline Phosphatase 103, Troponin I < 0.015, Total Protein 6.6, Albumin 3.5, Globulin 3.1, Albumin/Globulin Ratio 1.1 11/14/19 11:35: B-Natriuretic Peptide 3350.3 H Clinical Impression(s) from Imaging Studies Chest X-Ray 11/14/19 11:50 IMPRESSION: Diffuse interstitial edema with small bilateral pleural effusions. Findings suggest CHF, follow-up recommended to assure resolution Electronically Signed: Abraham Lawton MD at 12:05 EDT , Service support , Assessment/Plan All Active Problems (Last Updated 11/14/19 @ 12:[address] Lynn Nogueira MD) Acute on chronic systolic CHF (congestive heart failure) (Acute) This is a 74 years old male patient presented to the emergency room because of worsening shortness of breath and leg edema, found to have acute on chronic systolic CHF and he is being admitted for treatment. #1 acute on chronic systolic CHF: Based on symptoms, clinical findings, chest x- ray findings, elevated BNP. EKG revealed normal sinus rhythm, first-degree AV block, low voltage QRS, no acute changes. First troponin is negative. COVID-19 PCR is negative. Patient had 2D echocardiogram on May, that showed ejection fraction of 45% with mild global LV systolic dysfunction. Patient mentioned that he had 2D echocardiogram in the last couple of months at his air valve mechanic office in [place]. Plan: Admit to PCU, cardiac monitoring, serial cardiac enzymes, fluid restriction to less than 15 Lasix daily, start IV Lasix every 8 hours, continue sacubitril/valsartan, continue Coreg, continue tacrolimus which was prescribed by PCP for leg edema ia and was also recommended by his air valve mechanic, check pro time and INR, repeat CBC tomorrow morning, PT OT evaluation and treatment, obtain 2D echocardiogram report that was done at his air valve mechanic office in [place] the last couple of months. #2 stage IV chronic kidney disease: His creatinine has been around 2.3 to 2.4 mg/dL, GFR has been less than 29 mL/min. Admission creatinine is 2.52, stable at baseline. Expect creatinine to worsen with IV diuresis. Plan to repeat BMP tomorrow morning, avoid nephrotoxic drugs. #3 COPD: Pulse ox is maintained on room air. Chest x-ray reveals above. Plan for albuterol PRN. #4 CAD: EKG reviewed, no acute changes. Troponin is negative. Plan for cardiac monitoring, serial cardiac enzymes, continue aspirin, Coreg, statins, valsartan. #5 hypertension: Blood pressure is elevated in the ED, continue Coreg, valsartan/sacubitril, IV hydralazine PRN. #6 gout: Hold allopurinol for now. #7 hyperlipidemia: Continue statins. #8 GERD: Continue PPI. #9 DVT prophylaxis: Subcu heparin. This note was generated with [employer] dictation software. It may contain incorrect words, spelling, and punctuation that were not noted in checking the note before signing. Inpatient E&M: 91323 Init Hosp L3
[2019-11-14] MEDS: Nitroglycerin Oint 1 INCH PACKET TRANSDERM. (13:09)
[2019-11-14] MEDS: Furosemide 40 MG/4 ML Vial IV ×2 (13:09→18:52)
--- NOTE | 2019-11-14 15:53 | ED.RN ---
spoke with lab. states approx 1 hour and 20 min until COVID results. 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
[2019-11-14 17:32] LABS: Probe Check PASS; Specimen Processing Control PASS
[2019-11-14 18:28] LABS: International Normalized Ratio 1.1; Prothrombin Time (Protime)PT. 13.5 SECONDS (11.7-14.9)
[2019-11-14] MEDS: Heparin Injection (Vial) 5,000 UNIT/ML VIAL 5000 UNIT SC (18:52)
[2019-11-14] MEDS: Loratadine 10 MG Tablet PO (21:47)
[2019-11-14] MEDS: Atorvastatin Calcium 20 MG Tablet PO (21:47)
[2019-11-14] MEDS: Magnesium Oxide 400 MG Tablet PO (21:47)
[2019-11-14] MEDS: hydrALAZINE 25 MG Tablet 75 MG PO (21:47)
[2019-11-14] MEDS: Montelukast 10 MG Tablet PO (21:47)
[2019-11-14] MEDS: Carvedilol 25 MG Tablet PO (21:47)
[2019-11-15] VITALS (11 sets, daily range): BP systolic 104–136; BP diastolic 60–81; PULSE 59–85; RESP 16–18; TEMP 36.6–36.9; O2SAT 93–94
[2019-11-15] MEDS: Heparin Injection (Vial) 5,000 UNIT/ML VIAL 5000 UNIT SC ×3 (05:10→21:31)
[2019-11-15] MEDS: 0.9% Saline Lock 10 ML Syringe IV ×2 (05:10→18:36)
[2019-11-15] MEDS: Furosemide 40 MG/4 ML Vial IV ×2 (05:10→18:34)
[2019-11-15 06:22] LABS: Absolute Lymphocyte Count 1.02 X10^3/uL (0.83-4.51); Absolute Neutrophil Count 4.8 X10^3/uL (2.0-7.7); Basophil# 0.05 X10^3/uL; Basophil% 0.8 % (0-1); Eosinophil# 0.19 X10^3/uL; Eosinophils% 2.9 % (0-5); Hematocrit 31.5 % (40-54); Hemoglobin 10.2 g/dL (13.0-16.5); Lymphocyte # 1.02 X10^3/ul (4.0); Lymphocyte % 15.5 % (19-41); Mean Corp Hgb Conc 32.4 g/dL (32-36); Mean Corpuscular Hgb 29.6 pg (27.0-32.0); Mean Corpuscular Volume 91.3 fL (80-94); Mean Platelet Vol. 9.7 fl (6.2-12.0); Monocyte# 0.54 X10^3/uL; Monocyte% 8.2 % (0-10); NRBC Flagged by Analyzer 0 % (0-5); Neutrophil # 4.75 X10^3/uL (2.7-7.7); Neutrophil % 72.4 % (47-70); Platelet Count 213 K/mm3 (150-450); RBC Distribution Width CV 14.2 % (11.6-14.6); RBC Distribution Width SD 47.6 fl (35.1-43.9); Red Blood Count 3.45 M/mm3 (4.6-6.2); White Blood Count 6.6 K/mm3 (4.4-11.0)
[2019-11-15 06:43] LABS: Anion Gap 10 (5-15); BUN 46 mg/dL (7-18); BUN/Creat Ratio 18.3 RATIO (10-20); Chloride 104 mmol/L (98-107); Creatinine, Serum 2.52 mg/dL (0.70-1.30); EST Glomerular Filtration Rate 27 mL/min (>60); Est Glom Filt Rate - Afr Amer 32 mL/min (>60); Estimated Creatinine Clearance 24.41 ml/min; Glucose 84 mg/dL (74-106); Potassium 4.3 mmol/L (3.5-5.1); Sodium Level 140 mmol/L (136-145)
--- NOTE | 2019-11-15 07:58 | PCM.PROGNOTE ---
Subjective: Chief complaint: Follow-up after admission for acute on chronic systolic CHF. Patient seen and examined. No acute events overnight. Smiling, he is feeling better. Shortness of breath has been improving and remains on room air. Leg edema also started to improve. All over, he is feeling better. Denied any chest pain. His vital signs are stable. - Physical Exam Vitals/I&O's: Vital Signs Temp Pulse Resp BP Pulse Ox 98.5 F 79 16 118/81 H 94 11/15/19 03:50 11/15/19 07:08 11/15/19 03:50 11/15/19 03:50 11/15/19 06:53 Oxygen Delivery Method Room Air Weight: 216 lb 11.43 oz Body Mass Index (BMI) 33.9 Intake and Output for Last 24 Hours 11/13/19 11/14/19 11/15/19 23:59 23:59 23:59 Intake Total 300 / 300 Output Total 400 / 900 1000 / 1000 Balance -400 / -700 -700 / -700 General: Alert, Oriented x3, Cooperative, No apparent distress HEENT: Atraumatic, PERRLA, EOMI, Normocephalic Oral: Moist Mucosa, No Gingival or Mucosal Lesions/ Ulcerations Neck: Supple, No JVD, Negative Carotid Bruits, Trachea Midline, Thyroid Normal Size and Texture Lungs: No rhonchi, No wheeze, Diminished, - - Decreased breath sounds at the bases, faint rales. Cardiovascular: Regular rate, Regular Rhythm, Normal S1, Normal S2, PMI Normal Abdomen: Bowel Sounds Present, Soft, Non Tender, Non-Distended, No Hepato-splenomegaly, Obese Extremities: No clubbing, No cyanosis, Edema Skin: No rashes, No breakdown Lymphatic: No Cervical, Supraclavicular, or Inguinal Adenopathy Neurological: Cranial nerves II-XII grossly intact, Neuro grossly intact Psych/Mental Status: Normal Affect, Appropriate, Alert and oriented to time, place, person, mood and affect Laboratory Results 11/14/19 11:35: WBC 7.5, RBC 3.64 L, Hgb 11.1 L, Hct 33.1 L, MCV 90.9, MCH 30.5, MCHC 33.5, RDW Std Deviation 47.6 H, RDW Coeff of Nick 14.2, Plt Count 227, MPV 9.8, Immature Gran % (Auto) 0.300, Neut % (Auto) 71.5 H, Lymph % (Auto) 17.4 L, [place] % (Auto) 7.8, Eos % (Auto) 2.3, Baso % (Auto) 0.7, Absolute Neuts (auto) 5.3, Absolute Lymphs (auto) 1.30, Nucleated RBC % 0 11/14/19 11:35: Sodium 137, Potassium 4.9, Chloride 103, Carbon Dioxide 26.0, Anion Gap 8, BUN 41 H, Creatinine 2.52 H, Estim Creat Clear Calc 24.41, Est GFR (MDRD) Af Amer 32 L, Est GFR (MDRD) Non-Af 27 L, BUN/Creatinine Ratio 16.3, Glucose 105, Calcium 8.8, Total Bilirubin 0.70, AST 33, ALT 16, Alkaline Phosphatase 103, Troponin I < 0.015, Total Protein 6.6, Albumin 3.5, Globulin 3.1, Albumin/Globulin Ratio 1.1 11/14/19 11:35: B-Natriuretic Peptide 3350.3 H 11/14/19 11:35: PT 13.5, INR 1.1 11/14/19 12:55: COVID-19 ([facility]) Negative 11/14/19 18:22: Troponin I 0.021 11/14/19 21:21: Troponin I 0.031 11/15/19 00:08: Troponin I 0.038 11/15/19 06:12: WBC 6.6, RBC 3.45 L, Hgb 10.2 L, Hct 31.5 L, MCV 91.3, MCH 29.6, MCHC 32.4, RDW Std Deviation 47.6 H, RDW Coeff of Nick 14.2, Plt Count 213, MPV 9.7, Immature Gran % (Auto) 0.200, Neut % (Auto) 72.4 H, Lymph % (Auto) 15.5 L, [place] % (Auto) 8.2, Eos % (Auto) 2.9, Baso % (Auto) 0.8, Absolute Neuts (auto) 4.8, Absolute Lymphs (auto) 1.02, Nucleated RBC % 0 11/15/19 06:12: Sodium 140, Potassium 4.3, Chloride 104, Carbon Dioxide 26.0, Anion Gap 10, BUN 46 H, Creatinine 2.52 H, Estim Creat Clear Calc 24.41, Est GFR (MDRD) Af Amer 32 L, Est GFR (MDRD) Non-Af 27 L, BUN/Creatinine Ratio 18.3, Glucose 84, Calcium 9.0 Current Medications Acetaminophen (Tylenol) 650 mg PO Q6H PRN PRN PRN Reason: Pain Score 1-10/Temp > 100.7 F Albuterol Sulfate (Ventolin Aerosols) 2.5 mg INHALATION Q4H PRN PRN PRN Reason: SOB/Wheezing [facility]ir[facility], Baby) [facility] Atorvastatin Calcium (Lipitor) 20 mg PO QHS [facility] Last Admin: 11/14/19 21:47 Dose: 20 mg Documented by: Carvedilol (Coreg) 25 mg PO BID [facility] Last Admin: 11/14/19 21:47 Dose: 25 mg Documented by: Furosemide (Lasix) 40 mg IV BID@1000,1800 [facility] Heparin Sodium (Porcine) (Heparin Na) 5,000 unit SC Q8 [facility] Last Admin: 11/15/19 05:10 Dose: 5,000 unit Documented by: Hydralazine HCl (Apresoline) 75 mg PO BID [facility] Last Admin: 11/14/19 21:47 Dose: 75 mg Documented by: Hydralazine HCl (Apresoline Iv) 10 mg IV Q8H PRN PRN PRN Reason: for SBP>160 Loratadine (Claritin) 10 mg PO HS [facility] Last Admin: 11/14/19 21:47 Dose: 10 mg Documented by: Magnesium Oxide (Mag-Ox 400) 400 mg PO BID [facility] Last Admin: 11/14/19 21:47 Dose: 400 mg Documented by: Montelukast Sodium (Singulair) 10 mg PO QPM [facility] Last Admin: 11/14/19 21:47 Dose: 10 mg Documented by: Ondansetron HCl (Zofran) 4 mg IV Q8H PRN PRN PRN Reason: NAUSEA/VOMITING Pantoprazole Sodium (Protonix) 20 mg PO DAILY [facility] Sacubitril/Valsartan (Entresto 24 Mg-26 Mg Tablet) each PO DAILY [facility] Senna/Docusate Sodium (Senokot-S, Monica-Colace) 2 tablet PO BID PRN PRN PRN Reason: Constipation Tacrolimus (Prograf) 1 mg PO BID [facility] Zolpidem Tartrate (Ambien (Generic)) 5 mg PO QHS PRN PRN PRN Reason: INSOMNIA Medical Necessity - Tobacco Use Smoking Status: Former smoker Tobacco Use: Cigarettes Assessment/Plan All Active Problems (Last Updated 11/14/19 @ 12:[address] Lynn Nogueira MD) Acute on chronic systolic CHF (congestive heart failure) (Acute) This is a 74 years old male patient presented to the emergency room because of worsening shortness of breath and leg edema, found to have acute on chronic systolic CHF and he is being admitted for treatment. #1 acute on chronic systolic CHF: He is on IV Lasix, on Coreg, Entresto, aspirin and statins. Also, he is on tacrolimus for leg edema which was prescribed by PCP and agreed by his supervisor coil winding. Symptoms started to improve, remained on room air. Kidney function been stable. EKG revealed normal sinus rhythm, first-degree AV block, low voltage QRS, no acute changes. Troponin is negative x3. Awaiting 2D echocardiogram report from his supervisor coil winding office. Plan: Continue IV diuresis, decrease IV Lasix to twice daily, repeat BMP tomorrow morning, anticipate discharge home tomorrow morning. #2 stage IV chronic kidney disease: His creatinine has been around 2.3 to 2.4 mg/dL, GFR has been less than 29 mL/min. Admission creatinine is 2.52, today's creatinine is 2.52, stable at baseline. Plan to repeat BMP tomorrow morning. #3 COPD: Pulse ox is maintained on room air. Chest x-ray reveals above. Continue albuterol PRN. #4 CAD: EKG reviewed, no acute changes. Troponin is negative x3. Stable, continue aspirin, Coreg, statins, Entresto. #5 hypertension: Blood pressure under better control, continue Coreg, valsartan/sacubitril, IV hydralazine PRN. #6 gout: Hold allopurinol for now. #7 hyperlipidemia: Continue statins. #8 GERD: Continue PPI. #9 DVT prophylaxis: Subcu heparin. This note was generated with [employer] software. It may contain incorrect words, spelling, and punctuation that were not noted in checking the note before signing. Inpatient E&M: 10797 Subs Hosp L2
[2019-11-15] MEDS: Aspirin 81 MG TAB.CHEW PO (09:01)
[2019-11-15] MEDS: Carvedilol 25 MG Tablet PO ×2 (09:01→21:33)
[2019-11-15] MEDS: hydrALAZINE 25 MG Tablet 75 MG PO ×2 (09:01→21:33)
[2019-11-15] MEDS: Magnesium Oxide 400 MG Tablet PO ×2 (09:01→21:33)
[2019-11-15] MEDS: Pantoprazole Sodium 20 MG Tablet PO (09:01)
[2019-11-15] MEDS: Tacrolimus Anhydrous 1 MG Capsule PO ×2 (10:58→21:33)
--- NOTE | 2019-11-15 12:10 | CASEMGMT ---
HALEY BLANK Assessment: Face to Face with patient for initial transition planning/care coordination assessment. HALEY BLANK introduced self and role at [facility], pt voices understanding and consents to assessment at this time. Pt is sitting up in chair in no distress at this time on room air. Pt is A/Ox4 at this time and answers all questions appropriately at this time. is at bedside during assessment. Care providers, pharmacy, and demographics verified at this time. Presentation: SOB for a few weeks, Neg COVID. hx COPD Admitting dx: A on C Sys HF PCP: Zack Stacy Specialists: Kwadwo, cardio Matt; James pulying; jhon Victor [facility] [place] Insurance: [facility] A/B, O Prescription Benefit: [employer] Living Will/HPOA: Pt states has LW/HPOA and is aware that they are on file at [facility] at this time. Pt states his , Janae Gonzalez, is HPOA. LNOK: Janae Gonzalez, /HPOA Living Arrangements: Pt states lives with in 1 story home with a total of 3 steps in and states no concerns at home at this time. Pt states is independent with ADL's. Transportation: Pt states drives self and states no transportation concerns at this time. DME/HHC: Pt states has a cane, shower chair(does not use), and cpap thru [employer]. Pt states no need for any further DME at this time. Pt states no hx of HHC or SNF in the past. Pt states no concerns with going home at time of discharge. Pt is retired. Pt states does not smoke cigarettes or drink ETOH. Pt/ voice no further concerns/needs at this time. CM to follow for any further discharge planning/needs. Advised pt to ask for CM if any further questions/concerns/needs arise, voices understanding. Pt Goal: Home Plan[place] HALEY BLANK
[2019-11-15] MEDS: Atorvastatin Calcium 20 MG Tablet PO (21:33)
[2019-11-15] MEDS: Loratadine 10 MG Tablet PO (21:33)
[2019-11-15] MEDS: SACUBITRIL/VALSARTAN 97-103 MG TABLET 1 EACH PO (21:33)
[2019-11-15] MEDS: Montelukast 10 MG Tablet PO (21:34)
[2019-11-16 03:01] VITALS: PULSE 66
[2019-11-16 03:30] VITALS: BP 118/71; PULSE 73; RESP 18; TEMP 36.8; O2SAT 97
[2019-11-16] MEDS: Heparin Injection (Vial) 5,000 UNIT/ML VIAL 5000 UNIT SC (05:02)
[2019-11-16 07:03] VITALS: PULSE 66
[2019-11-16 07:24] LABS: Anion Gap 10 (5-15); BUN 49 mg/dL (7-18); BUN/Creat Ratio 18.4 RATIO (10-20); Calcium,Total 9.5 mg/dL (8.5-10.1); Chloride 101 mmol/L (98-107); Creatinine, Serum 2.66 mg/dL (0.70-1.30); EST Glomerular Filtration Rate 25 mL/min (>60); Est Glom Filt Rate - Afr Amer 30 mL/min (>60); Estimated Creatinine Clearance 23.12 ml/min; Glucose 99 mg/dL (74-106); Sodium Level 139 mmol/L (136-145)
[2019-11-16 07:45] VITALS: O2SAT 93
--- NOTE | 2019-11-16 08:30 | DCINST_ITS ---
You will use the following diet at home:: Cardiac, Fluid restricted (specify 2000 mls, 1500 mls) - 1500 cc daily. Your food should be the consistency of: Regular Discharge Activity: Return to Normal Activity Return to work on:: 11/19/19 Weight Bearing Status: Full weight bearing Call your doctor if you observe: Fever of 101 or Higher, Shortness of breath, Dizziness, Fainting spells, Chest pain, Increased palpitations (irregular heart beat), Uncontrolled pain Allergies/Adverse Reactions: Allergies Penicillins Allergy (Severe, Verified 11/14/19 10:47) Rash, 105 temp amlodipine Allergy (Verified 11/14/19 10:47) itching and rash aspirin Adverse Reaction (Mild, Verified 11/14/19 10:47) rash ENTERIC COATED ONLY; IS ABLE TO TAKE REGULAR ASPIRIN Medications to take at Discharge allopurinol 100 mg tablet 100 mg PO BID 05/03/18 ascorbic acid (vitamin C) 500 mg tablet 500 mg PO DAILY 05/03/18 aspirin 81 mg chewable tablet 81 mg PO DAILY 05/03/18 magnesium oxide 400 mg PO BID cap 05/03/18 nitroglycerin 0.4 mg sublingual tablet 0.4 mg SUBLINGUAL Q5-15M PRN 05/03/18 omeprazole 20 mg tablet,delayed release 20 mg PO DAILY 01/01/19 albuterol sulfate 2.5 mg INHALATION Q4H PRN #180 ml 04/09/19 hydralazine 25 mg tablet 25 mg PO BID tab 05/03/19 Carvedilol 25 mg PO BID 11/14/19 Cholecalciferol (VIT D3) [Vitamin D3] 3,000 unit PO DAILY 11/14/19 Fluticasone Propionate 2 spray INTRANASAL DAILY 11/14/19 Glycopyrrolate/Formoterol Fum [Bevespi Aerosphere Inhaler] 2 puff INHALATION BID 11/14/19 Guaifenesin [Mucinex] 1,200 mg PO DAILY 11/14/19 Montelukast Sodium 10 mg PO QPM 11/14/19 Multivitamin [Daily Multiple Vitamin] 1 ea PO DAILY 11/14/19 Rosuvastatin Calcium [Crestor] 10 mg PO QHS 11/14/19 Sacubitril/Valsartan 97-103 mg [Entresto 97 mg-103 mg Tablet] 1 tab PO BID 11/14/19 Tacrolimus 1 mg PO BID 11/14/19 hydrALAZINE [Apresoline] 50 mg PO BID 11/14/19 Furosemide 40 mg PO BID #30 tab 11/16/19 The following prescriptions were given: Furosemide 40 mg PO BID #30 tab Transmission Status: Pending to [id number] Primary Care Physician: Zack Stacy MD [Primary Care Provider] - Please follow up with your Primary Care Physician in: 1 week. Test Results: Test results from this visit will be discussed in further detail at your follow- up appointment, if applicable.
[2019-11-16 09:39] VITALS: BP 127/63; PULSE 70; RESP 16; TEMP 36.5; O2SAT 94
[2019-11-16] MEDS: Carvedilol 25 MG Tablet PO (09:44)
[2019-11-16] MEDS: SACUBITRIL/VALSARTAN 97-103 MG TABLET 1 EACH PO (09:44)
[2019-11-16 09:45] VITALS: PULSE 79
[2019-11-16] MEDS: Aspirin 81 MG TAB.CHEW PO (09:45)
[2019-11-16] MEDS: hydrALAZINE 25 MG Tablet 75 MG PO (09:45)
[2019-11-16] MEDS: Magnesium Oxide 400 MG Tablet PO (09:46)
[2019-11-16] MEDS: Pantoprazole Sodium 20 MG Tablet PO (09:47)
[2019-11-16] MEDS: Tacrolimus Anhydrous 1 MG Capsule PO (09:47)
--- NOTE | 2019-11-16 12:22 | PCM.DC.SUM ---
Discharge Date and Diagnosis Date of Admission: 11/14/19 Date of Discharge: 11/16/19 - Primary Discharge Diagnosis Acute Problems: #1 acute on chronic systolic CHF. #2 stage IV chronic kidney disease. - Secondary Discharge Diagnosis Chronic Problems: Chronic Problems (Last Updated 11/14/19 @ 12:[address] 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 Findings suggest CHF, follow-up recommended to assure resolution Electronically Signed: Abraham Lawton MD at 12:05 EDT , Service support , Operations: None Procedures: EKG Summary of Care Provided: Patient seen and examined on the day of discharge and the bed to be stable to be discharged home. Leg edema significantly improved as well as shortness of breath. Remained on vent, feeling better, vital signs are stable. The patient is a 74 year old M presented to the emergency room because of worsening shortness of breath and leg edema and he was found to have acute on chronic systolic CHF. On admission, patient did have significant bilateral leg edema, with slight short of breath although remained on room air. Chest x-ray revealed bilateral pulmonary vascular congestion. His BNP was highly elevated at 3350. EKG revealed normal sinus and without evidence of ischemic changes. Troponin was negative x4. COVID-19 PCR was negative. Patient was treated with IV Lasix for diuresis, continued on Coreg and Entresto as well as hydralazine. He diuresed very well and his symptoms of shortness of breath and edema significantly improved. His leg edema drastically improved. Patient had 2D echocardiogram on May 29 in our hospital that revealed ejection fraction of 45%, RVSP of 25. Patient stated that he had an echocardi[facility] report and that showed ejection fraction of 40 to 45%. His kidney function remained stable with IV diuresis. Patient discharged home in a stable condition, discharged on Lasix 40 mg p.o. twice daily, continued on previous home medications including beta-blockers and Entresto as well as hydralazine, instructed to restrict fluids less than 1500 cc daily, recommended follow-up with PCP in 1 week. - Physical Exam Vitals/I&O's: Vital Signs Temp Pulse Resp BP Pulse Ox 97.7 F L 79 16 127/63 H 94 11/16/19 09:39 11/16/19 09:45 11/16/19 09:39 11/16/19 09:39 11/16/19 09:39 Oxygen Delivery Method Room Air Weight: 211 lb 10.3 oz Body Mass Index (BMI) 33.9 Intake and Output for Last 24 Hours 11/14/19 11/15/19 11/16/19 23:59 23:59 23:59 Intake Total 1020 / 1230 210 / 210 Output Total 400 / 900 2050 / 3125 1855 / 1855 Balance -400 / -700 -1030 / -1895 -1645 / -1645 General: Alert, Oriented x3, Cooperative, No apparent distress HEENT: Atraumatic, PERRLA, EOMI, Normocephalic Oral: Moist Mucosa, No Gingival or Mucosal Lesions/ Ulcerations Neck: Supple, No JVD, Negative Carotid Bruits, Trachea Midline, Thyroid Normal Size and Texture Lungs: Clear to auscultation, Normal air movement, No rhonchi, No wheeze, No rales Cardiovascular: Regular rate, Regular Rhythm, Normal S1, Normal S2, No murmurs, PMI Normal Abdomen: Bowel Sounds Present, Soft, Non Tender, Non-Distended, No Hepato-splenomegaly, Obese Extremities: No clubbing, No cyanosis, Edema - Trace edema. Skin: No rashes, No breakdown Lymphatic: No Cervical, Supraclavicular, or Inguinal Adenopathy Neurological: Cranial nerves II-XII grossly intact, Neuro grossly intact Psych/Mental Status: Normal Affect, Appropriate Laboratory Results 11/16/19 06:02: Sodium 139, Potassium 4.0, Chloride 101, Carbon Dioxide 28.0, Anion Gap 10, BUN 49 H, Creatinine 2.66 H, Estim Creat Clear Calc 23.12, Est GFR (MDRD) Af Amer 30 L, Est GFR (MDRD) Non-Af 25 L, BUN/Creatinine Ratio 18.4, Glucose 99, Calcium 9.5 Discharge Activity: Return to Normal Activity Return to work on:: 11/19/19 Weight Bearing Status: Full weight bearing Call your doctor if you observe: Fever of 101 or Higher, Shortness of breath, Dizziness, Fainting spells, Chest pain, Increased palpitations (irregular heartbeat), Uncontrolled pain Home Medications: Medications to take at Discharge allopurinol 100 mg tablet 100 mg PO BID 05/03/18 ascorbic acid (vitamin C) 500 mg tablet 500 mg PO DAILY 05/03/18 aspirin 81 mg chewable tablet 81 mg PO DAILY 05/03/18 magnesium oxide 400 mg PO BID cap 05/03/18 nitroglycerin 0.4 mg sublingual tablet 0.4 mg SUBLINGUAL Q5-15M PRN 05/03/18 omeprazole 20 mg tablet,delayed release 20 mg PO DAILY 01/01/19 albuterol sulfate 2.5 mg INHALATION Q4H PRN #180 ml 04/09/19 hydralazine 25 mg tablet 25 mg PO BID tab 05/03/19 Carvedilol 25 mg PO BID 11/14/19 Cholecalciferol (VIT D3) [Vitamin D3] 3,000 unit PO DAILY 11/14/19 Fluticasone Propionate 2 spray INTRANASAL DAILY 11/14/19 Glycopyrrolate/Formoterol Fum [Bevespi Aerosphere Inhaler] 2 puff INHALATION BID 11/14/19 Guaifenesin [Mucinex] 1,200 mg PO DAILY 11/14/19 Montelukast Sodium 10 mg PO QPM 11/14/19 Multivitamin [Daily Multiple Vitamin] 1 ea PO DAILY 11/14/19 Rosuvastatin Calcium [Crestor] 10 mg PO QHS 11/14/19 Sacubitril/Valsartan 97-103 mg [Entresto 97 mg-103 mg Tablet] 1 tab PO BID 11/14/19 Tacrolimus 1 mg PO BID 11/14/19 hydrALAZINE [Apresoline] 50 mg PO BID 11/14/19 Furosemide 40 mg PO BID #30 tab 11/16/19 Following Prescriptions Were Given to Patient: Furosemide 40 mg PO BID #30 tab Transmission Status: Received by [id number] Primary Care Physician: Zack Stacy MD [Primary Care Provider] - Please follow up with your Primary Care Physician in: 1 week. Disposition: Home Minutes spent on discharge:: 32 Patient Condition:: Stable Medical Necessity - Tobacco Use Smoking Status: Former smoker Tobacco Use: Cigarettes Meaningful Use Info Meaningful Use Diagnoses (Choose all that apply): None applicable, CHF - CHF MARITA/ARB ordered at discharge?: Yes Documented LVEF (%): 45 Inpatient E&M: 16207 Disch Hosp
--- NOTE | 2019-11-19 10:48 | CASEMGMT ---
[facility] PHONE CALL DC DATE: 11/16/2019 DC Disposition: Home Diagnosis on Discharge: CHF, CKD stage IV LACE/STRATA: 10 DC appointments made on discharge: no, weekend discharge Prescriptions obtained on dc: unknown No answer to call, messaging had name identifier. Message left with call back information if patient had questions re: instructions, prescriptions or follow up. NAYLA Cuenca RN ACM
== END 2019-11-16 10:03 | disposition home or self-care (01) | DRG 291 ==
LOC: ED 11:39 → PCU 13:22
PROVIDERS: Admitting Provider Hospitalist; Emergency Provider Emergency Medicine; PCP Family Medicine; Visit Provider Hospitalist
DX: I13.0 Hypertensive heart and chronic kidney disease with heart failure and stage 1 through stage 4 chronic kidney disease, or unspecified chronic kidney disease (principal); I50.23 Acute on chronic systolic (congestive) heart failure; N18.4 Chronic kidney disease, stage 4 (severe); N40.0 Benign prostatic hyperplasia without lower urinary tract symptoms; G47.33 Obstructive sleep apnea (adult) (pediatric); M48.07 Spinal stenosis, lumbosacral region; M51.16 Intervertebral disc disorders with radiculopathy, lumbar region; J44.9 Chronic obstructive pulmonary disease, unspecified; I25.10 Atherosclerotic heart disease of native coronary artery without angina pectoris; E78.5 Hyperlipidemia, unspecified; E66.09 Other obesity due to excess calories; Z68.35 Body mass index [BMI] 35.0-35.9, adult; I27.21 Secondary pulmonary arterial hypertension; Z79.82 Long term (current) use of aspirin; Z79.899 Other long term (current) drug therapy; Z87.891 Personal history of nicotine dependence; K21.9 Gastro-esophageal reflux disease without esophagitis; M1A.9XX0 Chronic gout, unspecified, without tophus (tophi); I44.0 Atrioventricular block, first degree
CPT/HCPCS: 36415; 71045; 80048; 80053; 83880; 84484; 85025; 85610; 87635; 93005; 99285; A4216; J1940; U0003

== ENCOUNTER → 2019-11-21 11:00 | Outpatient (CLI) | payer MEDICARE, OTHER, SELFPAY ==
[2019-08-01 08:30] VITALS: BMI 35.4
== END ==
PROVIDERS: PCP Family Medicine; Visit Provider Nurse Practitioner Acute Care
DX: G47.33 Obstructive sleep apnea (adult) (pediatric) (principal)
CPT/HCPCS: 98960; G0463

== ENCOUNTER → 2020-01-09 12:08 | Outpatient (CLI) | payer MEDICARE, OTHER, SELFPAY ==
[2019-08-01 08:30] VITALS: BMI 35.4
[2019-11-14 17:54] VITALS: BMI 33.9
--- NOTE | 2020-01-10 17:30 | PFTCOMP ---
COMPLETE PULMONARY FUNCTION TEST INTERPRETATION Brief HPI: Patient is a 74 year old male, currently under the care of Farideh Phan, who presents to [facility] for complete pulmonary function tests secondary to diagnosis of COPD. Respiratory therapist reports good effort and reproducible results. Interpretation: Forced expiration spirometry shows a severe large airways obstructive ventilatory defect with an FEV1 of 41% predicted. There is no significant bronchodilator response by strict ATS criteria. Spirograms are of good quality and plateau slowly, indicating slowly emptying areas of the lungs. The respiratory flow volume loop shows decreased expiratory flow rates at all lung volumes consistent with airway obstruction. Lung volumes by body plethysmography show a decreased total lung capacity at 4.46 L, 78% predicted. All other lung volumes are within normal limits. Diffusion capacity by carbon monoxide is decreased at 41% predicted. The airway resistance is elevated. Compared to previous pulmonary function tests from 09/20/2018, there is been a significant worsening in FVC, FEV1, TLC and DLCO by 22%, 34%, 14% and 40% respectively. Impression: Irreversible severe mixed ventilatory defect with a symmetric reduction diffusion capacity and significant worsening compared to 2019.
== END ==
PROVIDERS: PCP Family Medicine; Referring Provider Nurse Practitioner Acute Care; Visit Provider Nurse Practitioner Acute Care
DX: J44.9 Chronic obstructive pulmonary disease, unspecified (principal)
CPT/HCPCS: 94060; 94726; 94729

== ENCOUNTER → 2020-01-13 12:16 | Outpatient (CLI) | payer MEDICARE, OTHER, SELFPAY ==
[2019-08-01 08:30] VITALS: BMI 35.4
[2019-11-14 17:54] VITALS: BMI 33.9
[2020-01-13 12:52] VITALS: PULSE 101; PULSE 77; PULSE 78; PULSE 84; PULSE 90; PULSE 92; PULSE 97; PULSE 98; O2SAT 89; O2SAT 90; O2SAT 91; O2SAT 92; O2SAT 94; O2SAT 95
--- NOTE | 2020-01-13 12:55 | CPS ---
PATIENT ARRIVED AT BASELINE RESPIRATORY STATUS. HE TOOK REST BREAKS EACH MINUTE DUE TO INCREASED WOB WELL BACK PAIN DURING MINUTES 5/6. ENTIRE TEST DONE ON ROOM AIR.
--- NOTE | 2020-01-14 09:10 | PCM.PSN.6M ---
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 Assistive device used: None Pre-test Oxygen Delivery Method Room Air Pulse Ox (%) 95 Pulse Rate (60-100 beats/min) 77 Dyspnea Tawana Scale (0-10) 2 1st minute Oxygen Delivery Method Room Air Pulse Ox (%) 92 Pulse Rate (60-100 beats/min) 84 Dyspnea Tawana Scale (0-10) 3 Number of Rests Taken 1 Reported Symptoms Increased Work of Breathing 2nd minute Oxygen Delivery Method Room Air Pulse Ox (%) 91 Pulse Rate (60-100 beats/min) 90 Dyspnea Tawana Scale (0-10) 4 Number of Rests Taken 1 Reported Symptoms Increased Work of Breathing 3rd minute Oxygen Delivery Method Room Air Pulse Ox (%) 91 Pulse Rate (60-100 beats/min) 92 Dyspnea Tawana Scale (0-10) 5 Number of Rests Taken 1 Reported Symptoms Increased Work of Breathing 4th minute Oxygen Delivery Method Room Air Pulse Ox (%) 91 Pulse Rate (60-100 beats/min) 98 Dyspnea Tawana Scale (0-10) 4 Number of Rests Taken 1 Reported Symptoms Increased Work of Breathing 5th minute Oxygen Delivery Method Room Air Pulse Ox (%) 90 Pulse Rate (60-100 beats/min) 101 H Dyspnea Tawana Scale (0-10) 5 Number of Rests Taken 1 Reported Symptoms Increased Work of Breathing 6th minute Oxygen Delivery Method Room Air Pulse Ox (%) 89 Pulse Rate (60-100 beats/min) 97 Dyspnea Tawana Scale (0-10) 5 Number of Rests Taken 1 Reported Symptoms Increased Work of Breathing Post-test Oxygen Delivery Method Room Air Pulse Ox (%) 94 Pulse Rate (60-100 beats/min) 78 Dyspnea Tawana Scale (0-10) 2 Full Laps Walked 8 Partial Lap, Number of Tiles Walked 17 Total Distance Walked (ft) 489 01/13/20 12:55 Cardiopulmonary Services by No Quezada PATIENT ARRIVED AT BASELINE RESPIRATORY STATUS. HE TOOK REST BREAKS EACH MINUTE DUE TO INCREASED WOB WELL BACK PAIN DURING MINUTES 5/6. ENTIRE TEST DONE ON ROOM AIR. Initialized on 01/13/20 12:55 - END OF NOTE - Interpretation Interpretation: The patient ambulated 489 feet over the course of 6 minutes beginning on room air without assistive devices. Pretesting oxygen saturation was noted to be 95% on room air. With ambulation, the blanca oxygen saturation was 89%. There was evidence of both impaired walk distance and significant exertional oxygen desaturation. - Recommendations Recommendations: There is no indication for the use of supplemental oxygen at this time. However, close interval follow-up is recommended, given the degree of oxygen desaturation noted during this study.
== END ==
PROVIDERS: PCP Family Medicine; Referring Provider Nurse Practitioner Acute Care; Visit Provider Nurse Practitioner Acute Care
DX: J44.9 Chronic obstructive pulmonary disease, unspecified (principal)
CPT/HCPCS: 94618

== ENCOUNTER → 2020-06-25 08:03 | Outpatient (CLI) | payer MEDICARE, OTHER, SELFPAY ==
[2020-05-27 10:53] VITALS: BMI 32.1
[2020-06-25 08:15] VITALS: PULSE 100; PULSE 101; PULSE 102; PULSE 104; PULSE 107; PULSE 82; PULSE 89; PULSE 91; O2SAT 94; O2SAT 95; O2SAT 96
--- NOTE | 2020-06-25 08:31 | CPS ---
Pt took 4 rest periods for approximately 30 seconds each for back pain. Pt denied any increased in his S.O.B during the break periods.
--- NOTE | 2020-06-26 13:50 | WT_ITS ---
PSN 6 Minute Walk Test - 6 Minute Walk Test 6 Minute Walk Test: 6 Minute Walk Test PSN:6-Minute Walk Test Start: 06/25/20 08:26 Freq: Status: Active Protocol: RESP.6MINW Document 06/25/20 08:15 [facility] (Rec: 06/25/20 08:34 [facility] [id number]) 6 Minute Walk Test Date Performed 06/25/20 Time Performed 08:15 Height 5 ft 7 in Weight: 89.811 kg Weight in Pounds 198.[address]: Bari Assistive device used: None Pre-test Oxygen Delivery Method Room Air Pulse Ox (%) 96 Pulse Rate (60-100 beats/min) 82 Dyspnea Tawana Scale (0-10) 0.5 Exertion Tawana Scale (6-20) 6 1st minute Oxygen Delivery Method Room Air Pulse Ox (%) 94 Pulse Rate (60-100 beats/min) 91 Number of Rests Taken 1 2nd minute Oxygen Delivery Method Room Air Pulse Ox (%) 96 Pulse Rate (60-100 beats/min) 104 H 3rd minute Oxygen Delivery Method Room Air Pulse Ox (%) 95 Pulse Rate (60-100 beats/min) 107 H Number of Rests Taken 1 4th minute Oxygen Delivery Method Room Air Pulse Ox (%) 94 Pulse Rate (60-100 beats/min) 100 Number of Rests Taken 1 5th minute Oxygen Delivery Method Room Air Pulse Ox (%) 94 Pulse Rate (60-100 beats/min) 102 H Number of Rests Taken 1 6th minute Oxygen Delivery Method Room Air Pulse Ox (%) 95 Pulse Rate (60-100 beats/min) 101 H Dyspnea Tawana Scale (0-10) 2 Exertion Tawana Scale (6-20) 11 Post-test Oxygen Delivery Method Room Air Pulse Ox (%) 96 Pulse Rate (60-100 beats/min) 89 Full Laps Walked 10 Partial Lap, Number of Tiles Walked 30 Total Distance Walked (ft) 620 06/25/20 08:31 Cardiopulmonary Services by Gin Tierney Pt took 4 rest periods for approximately 30 seconds each for back pain. Pt denied any increased in his S.O.B during the break periods. Initialized on 06/25/20 08:31 - END OF NOTE - Interpretation Interpretation: The patient was able to ambulate 620 feet over the course of 6 minutes on room air with no assistive devices, but for breaks. The patient experienced no significant desaturation or tachycardia. These findings are consistent with a musculoskeletal limitation exercise tolerance. - Recommendations Recommendations: No supplemental oxygen is indicated at this time.
== END ==
PROVIDERS: PCP Family Medicine; Referring Provider Nurse Practitioner Acute Care; Visit Provider Nurse Practitioner Acute Care
DX: R06.02 Shortness of breath (principal)
CPT/HCPCS: 94618

== ENCOUNTER 2020-08-25 03:39 | Inpatient (IN) | payer MEDICARE, OTHER, SELFPAY ==
[2020-05-27 10:53] VITALS: BMI 32.1
[2020-08-25] VITALS (22 sets, daily range): BP systolic 116–174; BP diastolic 55–96; PULSE 69–107; RESP 15–22; TEMP 36.6–37.1; O2SAT 88–99; BMI 32.0; BMI 30.8
--- NOTE | 2020-08-25 03:49 | EKG12_ITS ---
Test Reason : SOB Blood Pressure : / mmHG Vent. Rate : 085 BPM Atrial Rate : 085 BPM P-R Int : 230 ms QRS Dur : 108 ms QT Int : 390 ms P-R-T Axes : 074 000 067 degrees QTc Int : 464 ms Sinus rhythm with 1st degree A-V block Low voltage QRS Incomplete left bundle branch block Nonspecific T wave abnormality Prolonged QT Abnormal ECG Confirmed by JAMMIE GONZALEZ, ELIGIO ([id number]), managing editor LEONOR WALTER ([id number]) on 08/27/2020 10:00:25 AM Referred By: JITENDRA Confirmed By:ELIGIO AGUDELO MD
--- NOTE | 2020-08-25 03:49 | RAD_ITS ---
EXAM: XR CHEST, 1 VIEW : 1945 CLINICAL INDICATION: SOB, cough TECHNIQUE: Frontal view of the chest. This report was created using [employer] report generation technology. COMPARISON: 11/14/19 FINDINGS: LUNGS AND PLEURAL SPACES: Patchy bilateral lower lobe airspace disease. No pneumothorax. No effusion. HEART: Unremarkable. Cardiac silhouette not enlarged. MEDIASTINUM: Central airways and mediastinal contour are unremarkable. BONES/JOINTS: Unremarkable. SOFT TISSUES: Unremarkable. RAD/Chest 1 View (Portable) IMPRESSION: Patchy bilateral lower lobe airspace disease. Findings are concerning for pneumonia. at [id number] Reported and signed by: Rayo Gonzalez MD Electronically Signed: Rayo Gonzalez MD at 4:25 EDT Tel , Service support ,
--- NOTE | 2020-08-25 03:51 | EX.ED.DYSGE1 ---
HPI History of Present Illness Chief Complaint: Shortness of Breath Informant: patient Narrative Narrative: Patient is a 75-year-old male with a past medical history of CAD with stents, CHF, COPD, CKD who presents to the emergency department for shortness of breath. His initial symptoms started yesterday. He has had a productive cough of green sputum. He has had a low-grade fever at home. Denies chills or body aches. No nausea/vomiting or diarrhea. No significant leg swelling past baseline. He has felt a burning sensation in the center chest. No known sick contacts. He has been vaccinated for Covid. Patient does not wear oxygen at baseline. He has a former smoking history. He denies any abdominal pain or back pain. He did take Tylenol prior to coming into the ED. [facility] Medical History (Updated 08/25/20 @ 06:[address] Epifanio Montero, ) Abnormal chest CT BPH (benign prostatic hyperplasia) Chronic kidney disease, stage 3 Congestive heart failure (CHF) COPD (chronic obstructive pulmonary disease) Coronary atherosclerosis of [place] coronary artery Erectile dysfunction GERD (gastroesophageal reflux disease) Gout HLD (hyperlipidemia) HTN (hypertension) Lumbar disc disease with radiculopathy Lumbosacral stenosis Obesity MARCELO (obstructive sleep apnea) Psychosexual dysfunction with inhibited sexual excitement Home Medications allopurinol 100 mg tablet 100 mg PO BID 05/03/18 [History Last Taken 11/14/19] ascorbic acid (vitamin C) 500 mg tablet 500 mg PO DAILY 05/03/18 [History Last Taken 11/14/19] aspirin 81 mg chewable tablet 81 mg PO DAILY 05/03/18 [History Last Taken 11/14/19] magnesium oxide 400 mg PO BID cap 05/03/18 [History Last Taken 11/14/19] nitroglycerin 0.4 mg sublingual tablet 0.4 mg SUBLINGUAL Q5-15M PRN 05/03/18 [History Last Taken Unknown] omeprazole 20 mg tablet,delayed release 20 mg PO DAILY PRN PRN 01/01/19 [History Last Taken 11/14/19] albuterol sulfate 2.5 mg INHALATION Q4H PRN #180 ml 04/09/19 [Rx Last Taken 11/14/19] Carvedilol 25 mg PO BID 11/14/19 [History Last Taken 11/14/19] fluticasone propionate 2 spray INTRANASAL DAILY 11/14/19 [History Last Taken 11/14/19] guaifenesin 1,200 mg PO DAILY 11/14/19 [History Last Taken 11/14/19] hydralazine 100 mg PO BID 11/14/19 [History Last Taken 11/14/19] multivitamin 1 ea PO DAILY 11/14/19 [History Last Taken 11/14/19] rosuvastatin 10 mg PO QHS 11/14/19 [History Last Taken 11/13/19] sacubitril-valsartan 1 tab PO BID 11/14/19 [History Last Taken 11/14/19] tacrolimus 1 mg PO BID 11/14/19 [History Last Taken 11/14/19] Vitamin B3 3,000 iu PO/SL DAILY 08/25/20 [History Last Taken Unknown] furosemide 40 mg PO DAILY 08/25/20 [History Last Taken Unknown] glycopyrrolate-formoterol [Bevespi Aerosphere] 2 puff INHALATION BID 08/25/20 [History Last Taken Unknown] vit C-s.tgvcvc-ppdmcp-mqlvk sd [Tart Bernstein] 1 cap PO DAILY 08/25/20 [History Last Taken Unknown] Allergy/AdvReac Type Severity Reaction Status Date / Time Penicillins Allergy Severe Rash, 105 Verified 05/27/20 10:37 temp amlodipine Allergy itching Verified 05/27/20 10:37 and rash aspirin AdvReac Mild rash Verified 05/27/20 10:37 Family History Mother , 84 y.o. Hypertension CVA (cerebral vascular accident) Father , 70 y.o. Heart disease Hodgkin disease Sister , 72 y.o. Heart disease Surgical History (Updated 08/25/20 @ 04:02 by Soren Portillo) H/O left cataract extraction History of heart artery stent History of knee replacement procedure of left knee Social History household members: spouse housing: house pets and animals: No Smoking Status: Former smoker second hand exposure: No alcohol intake: current alcohol intake frequency: holidays/special occasions only ROS ROS ED Constitutional Constitutional ED: Denies chills Eyes Eyes: Denies change in vision ENT ENT ED: Denies epistaxis or rhinorrhea Cardiovascular Cardiovascular: Denies palpitations Respiratory/Chest Respiratory/Chest: Reports cough, dyspnea and sputum Gastrointestinal Gastrointestinal: Denies abdominal pain, diarrhea, nausea or vomiting Genitourinary Genitourinary ED: Denies dysuria, hematuria or urinary frequency Musculoskeletal Musculoskeletal: Denies back pain or neck pain Integumentary Denies rash Neurologic Neurologic: Denies dizziness, headache(s) or weakness EXAM Physical Exam Const Vital Signs: 08/25/20 03:39 08/25/20 03:40 08/25/20 03:43 Temperature 98.7 F 97.8 F 98.7 F Temperature Source Temporal Oral Oral Pulse Rate 91 88 87 Respiratory Rate 22 H 20 H 15 Respiratory Effort Respiratory Pattern Blood Pressure 174/96 H 174/96 H 174/96 H Blood Pressure Mean 122 122 122 Pulse Ox 93 88 94 Oxygen Delivery Method Nasal Cannula Room Air Nasal Cannula Oxygen Flow Rate (L/min) 2 2 08/25/20 03:54 08/25/20 04:08 08/25/20 04:36 Temperature Temperature Source Pulse Rate 85 75 Respiratory Rate 16 15 Respiratory Effort Short of Breath Respiratory Pattern Normal Blood Pressure 137/75 H Blood Pressure Mean 95 Pulse Ox 94 Oxygen Delivery Method Nasal Cannula Nasal Cannula Oxygen Flow Rate (L/min) 2 2 08/25/20 06:18 08/25/20 06:37 Temperature 98 F Temperature Source Oral Pulse Rate 102 H 96 Respiratory Rate 22 H 22 H Respiratory Effort Respiratory Pattern Blood Pressure 161/90 H 140/92 H Blood Pressure Mean 113 108 Pulse Ox 96 97 Oxygen Delivery Method Nasal Cannula Nasal Cannula Oxygen Flow Rate (L/min) 2 2 Positive well nourished and well developed General Appearance ED: well developed and NAD HEENT Reports normocephalic, head/scalp atraumatic and moist mucous membranes Eyes PERRL and EOMs intact bilaterally Neck supple Chest Wall inspection of chest normal Resp normal respiratory effort and clear to auscultation bilaterally Auscultation: wheezes; Negative for rales or rhonchi Cardio regular rate, regular rhythm and no murmurs GI normal to inspection, nondistended, normoactive bowel sounds and non-tender Palpation: soft; Negative for guarding or rebound tenderness present Back/Spine no CVA tenderness Extremity normal to inspection Extremity Narrative: Trace edema bilaterally. General Extremety ED: Negative for tenderness Neuro CN's II-XII intact bilaterally and no sensory deficits noted Sensorium / Orientation: alert Motor Exam: strength 5/5 throughout Psych mental status grossly normal Skin no rashes or lesions noted MDM MDM MDM Narrative Medical decision making narrative: Patient presents to the emergency department for shortness of breath, cough. He said some burning sensation in his substernal region. Upon arrival to the emergency department he is satting 93% on room air. He is not tachycardic with this. He does have some wheezing on exam. Will give a breathing treatment. Will check chest x-ray, basic lab work and EKG. Patient's lab work showed an elevated BNP. This is similar to his previous lab draw. Does not have a high white blood cell count. Coronavirus test was negative. His creatinine seems to be near his baseline. X-ray was concerning for pneumonia. With the cough that is productive of green sputum we will treat this with antibiotics. After the breathing treatment he was feeling better. We did attempt to ambulate the patient but he desatted to 89% on room air became very tachypneic. Due to his symptoms, desaturation will bring him into the hospital for further evaluation and management. Patient understands and is agreeable with this plan. He otherwise has been stable throughout ED stay. Lab Data Labs: Laboratory Results - last 24 hr 08/25/20 08/25/20 08/25/20 03:48 03:48 03:48 WBC 9.2 RBC 3.24 L Hgb 10.0 L Hct 30.8 L MCV 95.1 H MCH 30.9 MCHC 32.5 RDW Std Deviation 49.2 H RDW Coeff of Nick 14.3 Plt Count 174 MPV 9.6 Immature Gran % (Auto) 0.400 Neut % (Auto) 83.9 H Lymph % (Auto) 6.1 L Gregory % (Auto) 7.4 Eos % (Auto) 1.7 Baso % (Auto) 0.5 Absolute Neuts (auto) 7.8 H Absolute Lymphs (auto) 0.56 L Nucleated RBC % 0 Sodium 140 Potassium 4.7 Chloride 105 Carbon Dioxide 24.0 Anion Gap 11 BUN 70 H Creatinine 2.87 H Estim Creat Clear Calc 21.11 Est GFR (MDRD) Af Amer 28 L Est GFR (MDRD) Non-Af 23 L BUN/Creatinine Ratio 24.4 H Glucose 112 H Calcium 9.3 Magnesium 1.8 Total Bilirubin 0.70 AST 15 ALT 14 L Alkaline Phosphatase 92 Troponin I 0.045 B-Natriuretic Peptide 3889.9 H Total Protein 7.2 Albumin 4.0 Globulin 3.2 Albumin/Globulin Ratio 1.2 Radiography Diagnostic Testing: Radiology Impression Chest X-Ray 08/25/20 03:49 IMPRESSION: Patchy bilateral lower lobe airspace disease. Findings are concerning for pneumonia. at 0425 Reported and signed by: Rayo Gonzalez MD Electronically Signed: Rayo Gonzalez MD at 4:25 EDT Tel , Service support , X-ray interpretation. Bilateral lower lobe consolidations. Normal cardiac silhouette, normal mediastinum. Agree with radiologist. EKG Initial EKG: Attestation: I personally reviewed and interpreted this EKG as follows: (Rate of 85 bpm and normal sinus rhythm. Prolonged RI interval with first-degree AV block. Otherwise normal intervals. Normal axis. No significant ST elevations or depressions. No T wave abnormalities. Similar EKG appearance on November 14, 2019) Discharge Plan Dx/Rx/DC Orders Clinical Impression: Community acquired pneumonia, Hypoxia Disposition Disposition: Acute Care [facility]
[2020-08-25 03:56] LABS: Absolute Lymphocyte Count 0.56 X10^3/uL (0.83-4.51); Absolute Neutrophil Count 7.8 X10^3/uL (2.0-7.7); Basophil# 0.05 X10^3/uL; Basophil% 0.5 % (0-1); Eosinophil# 0.16 X10^3/uL; Eosinophils% 1.7 % (0-5); Hematocrit 30.8 % (40-54); Lymphocyte # 0.56 X10^3/ul (0.83-4.51); Lymphocyte % 6.1 % (19-41); Mean Corp Hgb Conc 32.5 g/dL (32-36); Mean Corpuscular Hgb 30.9 pg (27.0-32.0); Mean Corpuscular Volume 95.1 fL (80-94); Mean Platelet Vol. 9.6 fl (6.2-12.0); Monocyte# 0.68 X10^3/uL; Monocyte% 7.4 % (0-10); NRBC Flagged by Analyzer 0 % (0-5); Neutrophil # 7.75 X10^3/uL (2.7-7.7); Neutrophil % 83.9 % (47-70); POSITIVE DIFFERENTIAL YES; Platelet Count 174 K/mm3 (150-450); RBC Distribution Width CV 14.3 % (11.6-14.6); RBC Distribution Width SD 49.2 fl (35.1-43.9); Red Blood Count 3.24 M/mm3 (4.6-6.2); White Blood Count 9.2 K/mm3 (4.4-11.0)
[2020-08-25 03:58] LABS: Differential Indicated SCAN CRITERIA MET
[2020-08-25] MEDS: Ipratropium/Albuterol Sulfate 3 ML AMPUL.NEB INHALATION ×4 (04:08→18:26)
[2020-08-25 04:25] LABS: ALB/GLOB Ratio 1.2 RATIO (0.9-2.4); BUN 70 mg/dL (7-18); BUN/Creat Ratio 24.4 RATIO (10-20); Calcium,Total 9.3 mg/dL (8.5-10.1); Creatinine, Serum 2.87 mg/dL (0.70-1.30); EST Glomerular Filtration Rate 23 mL/min (>60); Est Glom Filt Rate - Afr Amer 28 mL/min (>60); Estimated Creatinine Clearance 21.11 ml/min; Globulin 3.2 g/dL (2.2-4.2); Glucose 112 mg/dL (74-106); Protein, Total 7.2 g/dL (6.4-8.2)
[2020-08-25 04:26] LABS: AST(SGOT) 15 U/L (15-37); Alanine Aminotransfer ALT/SGPT 14 U/L (16-61); Alkaline Phosphatase 92 U/L (45-117); Anion Gap 11 (5-15); Chloride 105 mmol/L (98-107); Magnesium 1.8 mg/dL (1.6-2.6); Potassium 4.7 mmol/L (3.5-5.1); Sodium Level 140 mmol/L (136-145)
[2020-08-25] MEDS: Ceftriaxone 1 GM/50 ML BAG IV (06:37)
--- NOTE | 2020-08-25 06:39 | PCM.HP.STD ---
HPI - General HPI Narrative ANGIE SINGH, is a 75 M who presents to the emergency room with acute shortness of breath. Onset symptoms began yesterday after he was mowing his lawn and since that time has found more difficulty in breathing. Upon arrival to the emergency room patient was breathing rapidly with an oxygen requirement. Chest x-ray reveals patchy infiltrate suspicious for pneumonia, CBC indicates a left shift despite a normal white blood cell count. BNtP is markedly elevated and patient does have a history of congestive heart failure. Patient also has a significant past history of chronic kidney disease. Patient will be admitted to the progressive care unit for management of congestive heart failure and pneumonia. [facility] Medical History (Updated 08/25/20 @ 06:[address] Epifanio Montero, ) Abnormal chest CT BPH (benign prostatic hyperplasia) Chronic kidney disease, stage 3 Congestive heart failure (CHF) COPD (chronic obstructive pulmonary disease) Coronary atherosclerosis of [place] coronary artery Erectile dysfunction GERD (gastroesophageal reflux disease) Gout HLD (hyperlipidemia) HTN (hypertension) Lumbar disc disease with radiculopathy Lumbosacral stenosis Obesity MARCELO (obstructive sleep apnea) Psychosexual dysfunction with inhibited sexual excitement Home Medications allopurinol 100 mg tablet 100 mg PO BID 05/03/18 [History Last Taken 11/14/19] ascorbic acid (vitamin C) 500 mg tablet 500 mg PO DAILY 05/03/18 [History Last Taken 11/14/19] aspirin 81 mg chewable tablet 81 mg PO DAILY 05/03/18 [History Last Taken 11/14/19] magnesium oxide 400 mg PO BID cap 05/03/18 [History Last Taken 11/14/19] nitroglycerin 0.4 mg sublingual tablet 0.4 mg SUBLINGUAL Q5-15M PRN 05/03/18 [History Last Taken Unknown] omeprazole 20 mg tablet,delayed release 20 mg PO DAILY PRN PRN 01/01/19 [History Last Taken 11/14/19] albuterol sulfate 2.5 mg INHALATION Q4H PRN #180 ml 04/09/19 [Rx Last Taken 11/14/19] Carvedilol 25 mg PO BID 11/14/19 [History Last Taken 11/14/19] fluticasone propionate 2 spray INTRANASAL DAILY 11/14/19 [History Last Taken 11/14/19] guaifenesin 1,200 mg PO DAILY 11/14/19 [History Last Taken 11/14/19] hydralazine 100 mg PO BID 11/14/19 [History Last Taken 11/14/19] multivitamin 1 ea PO DAILY 11/14/19 [History Last Taken 11/14/19] rosuvastatin 10 mg PO QHS 11/14/19 [History Last Taken 11/13/19] sacubitril-valsartan 1 tab PO BID 11/14/19 [History Last Taken 11/14/19] tacrolimus 1 mg PO BID 11/14/19 [History Last Taken 11/14/19] Vitamin B3 3,000 iu PO/SL DAILY 08/25/20 [History Last Taken Unknown] furosemide 40 mg PO DAILY 08/25/20 [History Last Taken Unknown] glycopyrrolate-formoterol [Bevespi Aerosphere] 2 puff INHALATION BID 08/25/20 [History Last Taken Unknown] vit C-s.fhatvm-jphlto-wxlzz sd [Tart Bernstein] 1 cap PO DAILY 08/25/20 [History Last Taken Unknown] Allergy/AdvReac Type Severity Reaction Status Date / Time Penicillins Allergy Severe Rash, 105 Verified 05/27/20 10:37 temp amlodipine Allergy itching Verified 05/27/20 10:37 and rash aspirin AdvReac Mild rash Verified 05/27/20 10:37 Family History (Reviewed 05/27/20 @ 10:59 by Farideh Phan [employer]ER [employer]PERATOR, [employer] W[employer]ER OPERATOR-C) Mother , 84 y.o. Hypertension CVA (cerebral vascular accident) Father , 70 y.o. Heart disease Hodgkin disease Sister , 72 y.o. Heart disease Surgical History (Updated 08/25/20 @ 04:02 by Soren Portillo) H/O left cataract extraction History of heart artery stent History of knee replacement procedure of left knee Social History household members: spouse housing: house pets and animals: No Smoking Status: Former smoker second hand exposure: No alcohol intake: current alcohol intake frequency: holidays/special occasions only ROS Constitutional Constitutional: Reports fatigue Eyes Eyes: Denies change in vision ENT HEENT: Denies abnormal hearing Cardiovascular Cardiovascular: Denies chest pain or palpitations Respiratory/Chest Respiratory/Chest: Reports shortness of breath at rest Gastrointestinal Gastrointestinal: Denies abdominal pain, diarrhea or nausea Genitourinary Genitourinary: Denies dysuria Musculoskeletal Musculoskeletal: Denies back pain Integumentary Integumentary: Denies wounds Neurologic Neurologic: Denies abnormal gait or abnormal speech Psychiatric Psychiatric: Denies anxiety Endocrine Endocrinology: Denies change in body appearance Hematologic/Lymphatic Hematologic/Lymphatic: Reports anemia Vital Signs Vital Signs Vital Signs: 08/25/20 03:39 08/25/20 03:40 08/25/20 03:43 Temperature 98.7 F 97.8 F 98.7 F Temperature Source Temporal Oral Oral Pulse Rate 91 88 87 Respiratory Rate 22 H 20 H 15 Respiratory Effort Respiratory Pattern Blood Pressure 174/96 H 174/96 H 174/96 H Blood Pressure Mean 122 122 122 Pulse Ox 93 88 94 Oxygen Delivery Method Nasal Cannula Room Air Nasal Cannula Oxygen Flow Rate (L/min) 2 2 08/25/20 03:54 08/25/20 04:08 08/25/20 04:36 Temperature Temperature Source Pulse Rate 85 75 Respiratory Rate 16 15 Respiratory Effort Short of Breath Respiratory Pattern Normal Blood Pressure 137/75 H Blood Pressure Mean 95 Pulse Ox 94 Oxygen Delivery Method Nasal Cannula Nasal Cannula Oxygen Flow Rate (L/min) 2 2 08/25/20 06:18 Temperature Temperature Source Pulse Rate 102 H Respiratory Rate 22 H Respiratory Effort Respiratory Pattern Blood Pressure 161/90 H Blood Pressure Mean 113 Pulse Ox 96 Oxygen Delivery Method Nasal Cannula Oxygen Flow Rate (L/min) 2 Weight Weight: 204 lb 5.896 oz Body Mass Index (BMI) 32.0 Physical Exam Const oriented x3 General Appearance: cooperative HEENT normocephalic and head/scalp atraumatic Eyes PERRL Neck supple Lymph Lymphatic: no lymphadenopathy noted Resp Auscultation: diminished lung sounds; Negative for rhonchi or wheezes Cardio regular rate, regular rhythm, S1 normal heart sound and S2 normal heart sound GI normal to inspection, nondistended, normoactive bowel sounds Extremity General Extremity: edema bilateral (2+) Skin General Skin Exam: no breakdown Lesions: no lesions Rashes: no rashes Neuro CN's II-XII intact bilaterally Psych thought process normal and affect normal Appearance: appropriate Results Lab / Micro Data Result Diagrams: 08/25/20 03:48 08/25/20 03:48 Labs: Laboratory Results - last 24 hr 08/25/20 08/25/20 08/25/20 03:48 03:48 03:48 WBC 9.2 RBC 3.24 L Hgb 10.0 L Hct 30.8 L MCV 95.1 H MCH 30.9 MCHC 32.5 RDW Std Deviation 49.2 H RDW Coeff of Nick 14.3 Plt Count 174 MPV 9.6 Immature Gran % (Auto) 0.400 Neut % (Auto) 83.9 H Lymph % (Auto) 6.1 L Evangeline % (Auto) 7.4 Eos % (Auto) 1.7 Baso % (Auto) 0.5 Absolute Neuts (auto) 7.8 H Absolute Lymphs (auto) 0.56 L Nucleated RBC % 0 Sodium 140 Potassium 4.7 Chloride 105 Carbon Dioxide 24.0 Anion Gap 11 BUN 70 H Creatinine 2.87 H Estim Creat Clear Calc 21.11 Est GFR (MDRD) Af Amer 28 L Est GFR (MDRD) Non-Af 23 L BUN/Creatinine Ratio 24.4 H Glucose 112 H Calcium 9.3 Magnesium 1.8 Total Bilirubin 0.70 AST 15 ALT 14 L Alkaline Phosphatase 92 Troponin I 0.045 B-Natriuretic Peptide 3889.9 H Total Protein 7.2 Albumin 4.0 Globulin 3.2 Albumin/Globulin Ratio 1.2 Micro: Microbiology 08/25/20 05:15 SARS-CoV-2 Antigen (Rapid) - Final Mucosa - Nose Radiology Impression Chest X-Ray 08/25/20 03:49 IMPRESSION: Patchy bilateral lower lobe airspace disease. Findings are concerning for pneumonia. at 0425 Reported and signed by: Rayo Gonzalez MD Electronically Signed: Rayo Gonzalez MD at 4:25 EDT Tel , Service support , Assessment & Plan Assessment/Plan (1) Stage 3 severe COPD by GOLD classification: (2) Acute on chronic systolic CHF (congestive heart failure): (3) Community acquired pneumonia: (4) Hypoxia: (5) MARCELO (obstructive sleep apnea): (6) HTN (hypertension): (7) HLD (hyperlipidemia): PLAN: 1. Acute shortness of breath secondary to pneumonia and congestive heart failure?admit patient to progressive care unit, add one-time dose Zaroxolyn 5 mg to enhance diuresis, order a echocardiogram to evaluate ejection fraction since one has not been done in the past year. Oxygen therapy per routine protocol, DuoNeb inhalers INH every 4 hours as needed, Levaquin 500 mg IV daily for broad-spectrum coverage Covid testing was negative 2. Chronic kidney disease?repeat BMP in the morning 3. Hypertension?continue home medications 4. Hyperlipidemia?continue statin 5. DVT prophylaxis?SCDs due to chronic kidney disease Charges/Coding Visit Charges Inpatient E&M: 34815 Init Hosp L3
--- NOTE | 2020-08-25 06:51 | ECHOCS_ITS ---
Version 2 Reason For Study: CHF Procedure This was a 2D Doppler, Color Flow transthoracic echocardiogram. The study was technically difficult. Contrast injection was performed. Exam performed portable in patient room. Left Ventricle Normal left ventricle. The estimated ejection fraction is 30 %. Moderately severe global left ventricular systolic dysfunction. There is moderate global hypokinesis of the left ventricle. Right Ventricle Normal RV size. Normal systolic function. Atria Normal left atrium. Normal right atrium. Mitral Valve Normal mitral valve. Mild-Moderate (1-2+) eccentric mitral valve insufficiency. Tricuspid Valve Normal tricuspid valve. Aortic Valve The aortic valve is not well visualized. Pulmonic Valve The pulmonic valve is not well visualized. Great Vessels Normal aortic root. The pulmonary artery is normal size. Normal inferior vena cava. Pericardium/Pleural No pericardial effusion. Medication Diluted definity 3.4ml given slow IV push to enhance endocardial definition. MMode/2D Measurements & Calculations LVIDd: 5.1 cm IVSd: 1.2 cm LA dimension: 4.2 cm LVIDs: 4.4 cm LVPWd: 1.2 cm RVDd: 3.8 cm FS: 12.8 % LAV(MOD-bp): 77.8 ml LVAd ap4: 42.1 cm2 SV(MOD-sp4): 39.6 ml LAV(MOD-bp) Indexed: 38.1 ml/m2 LVLd ap4: 9.5 cm LAV(MOD-sp2): 77.0 ml EDV(MOD-sp4): 149.9 ml LAV(MOD-sp4): 76.1 ml EDV(sp4-el): 157.9 ml LVAs ap4: 34.2 cm2 LVLs ap4: 8.7 cm ESV(MOD-sp4): 110.3 ml ESV(sp4-el): 114.4 ml EF(MOD-sp4): 26.4 % EF(sp4-el): 27.6 % SV(sp4-el): 43.6 ml LA A4 area: 24.4 cm2 RA A4 area: 19.3 cm2 Time Measurements MV dec time: 0.14 sec Doppler Measurements & Calculations MV E max pierre: 133.8 cm/sec Lat Peak E' Pierre: 12.4 cm/sec Med Peak E' Pierre: 6.6 cm/sec E/E' lat: 10.8 E/E' med: 20.1 Ao V2 max: 106.8 cm/sec LV V1 max: 91.3 cm/sec PA V2 max: 81.1 cm/sec Ao max P.6 mmHg LV V1 max P.3 mmHg TR max pierre: 381.5 cm/sec TR max P.2 mmHg ECHO/Echo Complete W/ Contrast Interpretation Summary Normal left ventricle. The estimated ejection fraction is 30 %. Moderately severe global left ventricular systolic dysfunction. There is moderate global hypokinesis of the left ventricle. Contrast injection was performed. Compared to previous study, the left ventricu lar systolic function has worsened.. Ordering Physician: García Thomas Referring Physician: Zack Stacy Performed By: Jean Marie Cheng RCS
--- NOTE | 2020-08-25 06:54 | NURSING ---
105 JOHN HYPOXIA, PNA, CHF
--- NOTE | 2020-08-25 07:45 | PN.HOSP_ITS ---
Hospitalist Note Seen and examined. Patient was admitted hospice art therapist today. Patient is admitted mainly of short of breath with some chest tightness. Patient has a history of COPD and is on inhalers but not on oxygen. History of his smoking quit about 25?30 years ago. Patient follows automatic lehr operator Dr. Hawkins is in [place]. History of coronary artery stents, CHF and chronic kidney disease. Patient states he is on Prograf/tacrolimus for chronic kidney disease started by his director of the biophysics facility but does not have any immunosuppressive condition or transplant history. Currently no chest pain. ekg monitor tech shows sinus rhythm with PVCs. Physical exam General: Alert, Oriented x3, Cooperative HEENT: Atraumatic, PERRLA, EOMI, Normocephalic Oral: No Gingival or Mucosal Lesions/ Ulcerations Neck: Supple, No JVD, Negative Carotid Bruits Lungs: Air entry diminished in bilateral lung bases. Mild bilateral expiratory rhonchi Cardiovascular: Regular rate, Regular Rhythm, Normal S1, Normal S2, No murmurs Abdomen: Bowel Sounds Present, Soft, Non Tender, Non-Distended : No renal angle tenderness. No suprapubic tenderness. Extremities: No edema, Capillary Refill Less than 3 Seconds Skin: No rashes, No breakdown Musculoskeletal: No Tenderness to Palpation of Joints or Extremities Neurological: Cranial nerves II-XII grossly intact, Deep Tendon Reflexes 2+/4 and Symmetrical, Neuro grossly intact Psych/Mental Status: Normal Affect, Appropriate. Chest x-ray shows bilateral lower lobe infiltrates along with hilar involvement. Previous echo in May 2018 shows EF 45% right atrial enlargement, 1+ 2+ MR. Patient has history of stage III COPD and pulmonary hypertension and follows Dr. Ramirez. Troponin normal range. Estimated creatinine clearance 21 mL/min, creatinine 2.87 2D echo shows EF 30%, moderately severe global LV systolic dysfunction and hypokinesis. Active Medications Acetaminophen (Acetaminophen 325 Mg Tablet) 650 mg PO Q6H PRN PRN PRN Reason: Pain Score 1-10/Temp > 100.7 F Albuterol/Ipratropium (Ipratropium/Albuterol Sulfate 3 Ml Ampul.Neb) 3 ml INHALATION Q4HWA.RT YOUNG Last Admin: 08/25/20 11:27 Dose: 3 ml Documented by: Allopurinol (Allopurinol 100 Mg Tablet) 100 mg PO BID YOUNG Last Admin: 08/25/20 08:43 Dose: 100 mg Documented by: Ascorbic Acid (Ascorbic Acid 500 Mg Tablet) 500 mg PO DAILYCM [facility] Last Admin: 08/25/20 08:43 Dose: 500 mg Documented by: Atorvastatin Calcium (Atorvastatin Calcium 20 Mg Tablet) 20 mg PO QHS [facility] Carvedilol (Carvedilol 25 Mg Tablet) 25 mg PO BID [facility] Last Admin: 08/25/20 08:43 Dose: 25 mg Documented by: Fluticasone Propionate (Fluticasone 0.05% 1 Loris Nasal.Sry) 2 spray NASAL DAILY [facility] Last Admin: 08/25/20 08:44 Dose: Not Given Documented by: Furosemide (Furosemide 40 Mg/4 Ml Vial) 40 mg IV BIDLX [facility] Last Admin: 08/25/20 08:44 Dose: 40 mg Documented by: Guaifenesin (Guaifenesin 1,200 Mg Tablet) 1,200 mg PO DAILY [facility] Last Admin: 08/25/20 08:44 Dose: 1,200 mg Documented by: Hydralazine HCl (Hydralazine 50 Mg Tablet) 100 mg PO BID [facility] Last Admin: 08/25/20 08:43 Dose: 100 mg Documented by: Levofloxacin (Levaquin Iv) 250 mg in 50 mls @ 50 mls/hr IV Q24 YOUNG Sodium Chloride () 250 mls @ 15 mls/hr IV .[id number] PRN PRN Reason: Saline Flush Sodium Chloride () 250 mls @ 15 mls/hr IV .[id number] PRN PRN Reason: Additional IVPB Infusion Magnesium Chloride (Magnesium Chloride 64 Mg Delay Rel.Tablet) 128 mg PO BID [facility] Last Admin: 08/25/20 08:43 Dose: 128 mg Documented by: Multivitamins (Multivitamins,Therapeutic Tablet) 1 tablet PO DAILYCM [facility] Last Admin: 08/25/20 08:44 Dose: 1 tablet Documented by: Nutritional Formula (Lactose Free) (Ensure Enlive 120 Ml Liquid) 120 ml PO 4X/DAY [facility] Last Admin: 08/25/20 13:16 Dose: 120 ml Documented by: Pantoprazole Sodium (Pantoprazole Sodium 20 Mg Tablet) 20 mg PO DAILY PRN PRN PRN Reason: Indigestion Sacubitril/Valsartan (Sacubitril/Valsartan 49-51 Mg Tablet) 1 each PO BID [facility] Last Admin: 08/25/20 08:43 Dose: 1 each Documented by: Sodium Chloride (0.9% Saline Lock 10 Ml Syringe) 10 - 40 ml IV UD PRN PRN Reason: SALINE FLUSH Last Admin: 08/25/20 08:44 Dose: 10 ml Documented by: Tacrolimus (Tacrolimus Anhydrous 1 Mg Capsule) 1 mg PO BID [facility] Last Admin: 08/25/20 08:43 Dose: 1 mg Documented by:
[2020-08-25] MEDS: Carvedilol 25 MG Tablet PO ×2 (08:43→20:52)
[2020-08-25] MEDS: SACUBITRIL/VALSARTAN 49-51 MG TABLET 1 EACH PO (08:43)
[2020-08-25] MEDS: Tacrolimus Anhydrous 1 MG Capsule PO (08:43)
[2020-08-25] MEDS: metOLazone 5 MG Tablet PO (08:43)
[2020-08-25] MEDS: hydrALAZINE 50 MG Tablet 100 MG PO ×2 (08:43→20:52)
[2020-08-25] MEDS: Ascorbic Acid 500 MG Tablet PO (08:43)
[2020-08-25] MEDS: Magnesium Chloride 64 MG Delay Rel.Tablet 128 MG PO ×2 (08:43→20:52)
[2020-08-25] MEDS: Allopurinol 100 MG Tablet PO ×2 (08:43→20:53)
[2020-08-25] MEDS: Furosemide 40 MG/4 ML Vial IV (08:44)
[2020-08-25] MEDS: 0.9% Saline Lock 10 ML Syringe IV (08:44)
[2020-08-25] MEDS: levoFLOXacin IV 500 MG/100 ML BAG 100 MG IV (08:44)
[2020-08-25] MEDS: guaiFENesin 1,200 MG Tablet 1200 MG PO ×2 (08:44→20:52)
[2020-08-25] MEDS: Multivitamins,Therapeutic Tablet 1 TABLET PO (08:44)
--- NOTE | 2020-08-25 11:12 | CASEMGMT ---
HALEY BLANK assessment: Face to Face with patient for initial transition planning/care coordination assessment. HALEY BLANK introduced self and role at [facility], pt voices understanding and consents to assessment. Pt is sitting up in chair in no distress on 2L nc. Pt's is at bedside during assessment. Pt is A/Ox4 and answers all questions appropriately. Care providers, pharmacy, and demographics verified. Presentation: Hard time breathing since 129, hx COPD/HF/CKD Admitting dx: CHF, pna PCP: Zack Stacy Specialists: James pulm; James, cardio; Olive nephangelina Preferred Pharmacy: [facility] Insurance: MCR A/B, MMO Prescription Benefit: MCR D Living Will/HPOA: Pt has LW/HPOA and is aware that they are on file at [facility]. Pt's , Janae Gonzalez, is HPOA. LNOK: Janae Gonzalez, /HPOA Living Arrangements: Pt states lives with in 1 story home with 3 steps in and states no concerns at home. Pt states is independent with ADL's. Transportation: Pt states drives self and states no transportation concerns. DME/HHC: Pt states has the following DME: walk-in shower, cane, and cpap thru [employer]. Pt states no need for any further DME. Pt states no hx of HHC or SNF in the past. Pt states no concerns with going home at time of discharge. Pt is retired. Pt states no longer smokes cigarettes and does not drink ETOH. Pt states no further concerns/needs. CM to follow for home oxygen testing and and further discharge planning/needs. Advised pt to ask for CM if any further questions/concerns/needs arise, voices understanding. Pt Goal: Home Plan: [place] HALEY BLANK
--- NOTE | 2020-08-25 16:29 | CHAPLAIN ---
Type of Pastoral Visit _x__ Initial Visit ___ Follow-up Visit ___ On-call Visit ___ General Patient Visit ___ Spiritual Assessment ___ Family Conference ___ Bereavement ___ Rapid Response ___ Code Blue ___ Other (describe below) Pastoral Care Referral From _x__ Patient ___ Family ___ Nurse ___ Physician ___ Merchandising Intern ___ Provider Relations Representative ___ Other (describe below) Sacrament/Intervention _x__ Active listening ___ Anointing ___ Pentecostalism ___ Bereavement ___ Communion _x__ Tanisha exploration ___ _x__ Life review _x__ Prayer ___ Reconciliation ___ Sacrament of Sick ___ Supportive presence ___ Wedding ___ Other (describe below) Pastoral Comments
--- NOTE | 2020-08-25 17:46 | CON.PCM.CA_ITS ---
Assessment & Plan Assessment/Plan (1) Acute on chronic systolic CHF (congestive heart failure): PLAN: He does appear to have presented with acute on chronic congestive heart failure with systolic dysfunction. * He was diuresed appropriately and is feeling much better. His echocardiogram demonstrates global reduction in left ventricular systolic function. * He is on Entresto as well as carvedilol and hydralazine has been added. * We will continue the above medication as well as appropriate diuretics. (2) NSTEMI (non-ST elevated myocardial infarction): PLAN: He has a non-ST elevation myocardial infarction. Ideally he does need to be studied in terms of having a left heart catheterization. He does have significant renal dysfunction. * Will attempt to contact his concession stand attendant to see whether 1 can optimize his care before proceeding with any invasive therapy. (3) HTN (hypertension): PLAN: His blood pressure appears to be under good control at this particular time and we will continue him on the current medications. (4) Coronary atherosclerosis of benton coronary artery: PLAN: He does have evidence of atherosclerotic cardiovascular disease. He clearly has had a coronary event and he may need further definition of the above. It may be helpful if it is too risky to perform a myocardial perfusion stress test to determine the extent of the coronary disease, or ischemia before proceeding with a cardiac catheterization. * Will discuss with concession stand attendant prior to the procedure in a.m. * * Thank you for allowing me to participate in the care of your patient. Please don't hesitate to call if any issues arise. HPI Consult Data Date of Consult: 08/25/20 HPI Narrative HPI Narrative: ANGIE SINGH, is a 75 M who presents with chest and epigastric burning which started throughout the night as well as shortness of breath which was occurring while he was mowing his lawn. He does have a history of a mild cardiomyopathy, chronic renal disease, coronary artery disease status post stents on at least 4 occasions. He is previously being followed by a event lighting specialist in the [place] area. He has been compliant with all his medicati ons but he started having this discomfort he did take a nitroglycerin with mild improvement but after it was getting worse he decided to present to the emergency room. In the emergency room he was noted to be short of breath there were no acute EKG changes but his cardiac natruretic peptide markers were noted to be elevated. It was also felt that he may have had a pneumonia and was started on IV antibiotics. Cardiac enzymes which were performed demonstrated significant elevation to the range consistent with an non-ST elevation myocardial infarction. He currently denies any chest pain. He has not had any pedal edema no cough and no paroxysmal nocturnal dyspnea. He did have an echocardiogram performed today which demonstrated global reduction in left ventricular systolic function estimated at approximately 30%. Due to the above cardiology was called to see him. [facility] Medical History Abnormal chest CT Anemia BPH (benign prostatic hyperplasia) Chest pain Chronic kidney disease, stage 3 Congestive heart failure (CHF) COPD (chronic obstructive pulmonary disease) Coronary atherosclerosis of benton coronary artery CPAP (continuous positive airway pressure) dependence Erectile dysfunction Former smoker GERD (gastroesophageal reflux disease) Gout HLD (hyperlipidemia) HTN (hypertension) Lumbar disc disease with radiculopathy Lumbosacral stenosis Myocardial infarct Obesity MARCELO (obstructive sleep apnea) Psychosexual dysfunction with inhibited sexual excitement Home Medications allopurinol 100 mg tablet 100 mg PO BID 05/03/18 [History Last Taken 11/14/19] ascorbic acid (vitamin C) 500 mg tablet 500 mg PO DAILY 05/03/18 [History Last Taken 11/14/19] aspirin 81 mg chewable tablet 81 mg PO DAILY 05/03/18 [History Last Taken 11/14/19] magnesium oxide 400 mg PO BID cap 05/03/18 [History Last Taken 11/14/19] nitroglycerin 0.4 mg sublingual tablet 0.4 mg SUBLINGUAL Q5-15M PRN 05/03/18 [History Last Taken Unknown] omeprazole 20 mg tablet,delayed release 20 mg PO DAILY PRN PRN 01/01/19 [History Last Taken 11/14/19] albuterol sulfate 2.5 mg INHALATION Q4H PRN #180 ml 04/09/19 [Rx Last Taken 11/14/19] Carvedilol 25 mg PO BID 11/14/19 [History Last Taken 11/14/19] fluticasone propionate 2 spray INTRANASAL DAILY 11/14/19 [History Last Taken 11/14/19] guaifenesin 1,200 mg PO DAILY 11/14/19 [History Last Taken 11/14/19] hydralazine 100 mg PO BID 11/14/19 [History Last Taken 11/14/19] multivitamin 1 ea PO DAILY 11/14/19 [History Last Taken 11/14/19] rosuvastatin 10 mg PO QHS 11/14/19 [History Last Taken 11/13/19] sacubitril-valsartan 1 tab PO BID 11/14/19 [History Last Taken 11/14/19] tacrolimus 1 mg PO BID 11/14/19 [History Last Taken 11/14/19] Vitamin B3 3,000 iu PO/SL DAILY 08/25/20 [History Last Taken Unknown] furosemide 40 mg PO BREAKFAST 08/25/20 [History Last Taken Unknown] furosemide [Lasix] 20 mg PO QHS 08/25/20 [History Last Taken Unknown] glycopyrrolate-formoterol [Bevespi Aerosphere] 2 puff INHALATION BID 08/25/20 [History Last Taken Unknown] vit C-s.nodgdz-eirmin-xwwvk sd [Tart Bernstein] 1 cap PO DAILY 08/25/20 [History Last Taken Unknown] Allergy/AdvReac Type Severity Reaction Status Date / Time Penicillins Allergy Severe Rash, 105 Verified 05/27/20 10:37 temp amlodipine Allergy itching Verified 05/27/20 10:37 and rash aspirin AdvReac Mild rash Verified 05/27/20 10:37 Family History Mother , 84 y.o. Hypertension CVA (cerebral vascular accident) Father , 70 y.o. Heart disease Hodgkin disease Sister , 72 y.o. Heart disease Surgical History H/O left cataract extraction History of heart artery stent History of knee replacement procedure of left knee Social History household members: spouse housing: house pets and animals: No Smoking Status: Former smoker second hand exposure: No alcohol intake: current alcohol intake frequency: holidays/special occasions only ROS Constitutional Constitutional: Denies fever(s) or weight loss Eyes Eyes: Reports as per HPI ENT HEENT: Reports as per HPI Cardiovascular Cardiovascular: Reports chest pain at rest, dyspnea on exertion and other Respiratory/Chest Respiratory/Chest: Reports productive cough, shortness of breath at rest, shortness of breath with exertion and other Gastrointestinal Gastrointestinal: Denies change in bowel habits, nausea, vomiting or weight changes Genitourinary Genitourinary: Denies difficulty urinating Musculoskeletal Musculoskeletal: Denies joint stiffness or muscle weakness Integumentary Integumentary: Denies lesions Neurologic Neurologic: Denies dizziness or syncope Psychiatric Psychiatric: Denies anxiety Endocrine Endocrinology: Denies excessive sweating or fatigue Hematologic/Lymphatic Hematologic/Lymphatic: Denies anemia Allergic/Immunologic Allergic/Immunologic: Denies seasonal rhinorrhea Physical Exam Const oriented x3 and healthy appearing Orientation / Consciousness: awake HEENT normocephalic Eyes PERRL and conjunctivae normal Neck supple, no JVD and no carotid bruits Chest inspection of chest normal Resp normal respiratory effort and clear to auscultation bilaterally Cardio Palpation: normal PMI Rate: regular rate Rhythm: regular rhythm Heart Sounds: S1 normal and S2 normal Peripheral Pulses: pulses 2+ throughout GI normal to inspection, nondistended, normoactive bowel sounds Extremity normal to inspection and no clubbing, cyanosis or edema Psych mental status grossly normal Objective Data Vital Signs: Vital Signs Temp Pulse Resp BP Pulse Ox 97.9 F 80 20 H 116/55 L 97 08/25/20 13:00 08/25/20 15:10 08/25/20 15:10 08/25/20 13:00 08/25/20 13:00 Oxygen Flow Rate (L/min) 2 Oxygen Delivery Method Nasal Cannula Weight: 196 lb 13.965 oz Body Mass Index (BMI) 30.8 Intake & Output: Intake and Output for Last 24 Hours 08/23/20 08/24/20 08/25/20 23:59 23:59 23:59 Intake Total 585 / 585 Balance 585 / 585 Lab / Micro Data Result Diagrams: 08/25/20 03:48 08/25/20 03:48 Labs: Laboratory Results - last 24 hr 08/25/20 08/25/20 08/25/20 03:48 03:48 03:48 WBC 9.2 RBC 3.24 L Hgb 10.0 L Hct 30.8 L MCV 95.1 H MCH 30.9 MCHC 32.5 RDW Std Deviation 49.2 H RDW Coeff of Nick 14.3 Plt Count 174 MPV 9.6 Immature Gran % (Auto) 0.400 Neut % (Auto) 83.9 H Lymph % (Auto) 6.1 L Kidder % (Auto) 7.4 Eos % (Auto) 1.7 Baso % (Auto) 0.5 Absolute Neuts (auto) 7.8 H Absolute Lymphs (auto) 0.56 L Nucleated RBC % 0 Sodium 140 Potassium 4.7 Chloride 105 Carbon Dioxide 24.0 Anion Gap 11 BUN 70 H Creatinine 2.87 H Estim Creat Clear Calc 21.11 Est GFR (MDRD) Af Amer 28 L Est GFR (MDRD) Non-Af 23 L BUN/Creatinine Ratio 24.4 H Glucose 112 H Calcium 9.3 Magnesium 1.8 Total Bilirubin 0.70 AST 15 ALT 14 L Alkaline Phosphatase 92 Troponin I 0.045 B-Natriuretic Peptide 3889.9 H Total Protein 7.2 Albumin 4.0 Globulin 3.2 Albumin/Globulin Ratio 1.2 08/25/20 14:41 WBC RBC Hgb Hct MCV MCH MCHC RDW Std Deviation RDW Coeff of Nick Plt Count MPV Immature Gran % (Auto) Neut % (Auto) Lymph % (Auto) Kidder % (Auto) Eos % (Auto) Baso % (Auto) Absolute Neuts (auto) Absolute Lymphs (auto) Nucleated RBC % Sodium Potassium Chloride Carbon Dioxide Anion Gap BUN Creatinine Estim Creat Clear Calc Est GFR (MDRD) Af Amer Est GFR (MDRD) Non-Af BUN/Creatinine Ratio Glucose Calcium Magnesium Total Bilirubin AST ALT Alkaline Phosphatase Troponin I 1.620 H* B-Natriuretic Peptide Total Protein Albumin Globulin Albumin/Globulin Ratio Micro: Microbiology 08/25/20 05:15 Mucosa - Nose SARS-CoV-2 Antigen (Rapid) - Final Cardiology Labs/Tests 08/25/20 03:48: WBC 9.2, RBC 3.24 L, Hgb 10.0 L, Hct 30.8 L, MCV 95.1 H, MCH 30.9, MCHC 32.5, Plt Count 174, MPV 9.6, Immature Gran % (Auto) 0.400, Neut % (Auto) 83.9 H, Lymph % (Auto) 6.1 L, Kidder % (Auto) 7.4, Eos % (Auto) 1.7, Baso % (Auto) 0.5, Absolute Neuts (auto) 7.8 H, Nucleated RBC % 0 08/25/20 03:48: Sodium 140, Potassium 4.7, Chloride 105, Carbon Dioxide 24.0, A nion Gap 11, BUN 70 H, Creatinine 2.87 H, Est GFR (MDRD) Af Amer 28 L, Est GFR (MDRD) Non-Af 23 L, BUN/Creatinine Ratio 24.4 H, Glucose 112 H, Calcium 9.3, Magnesium 1.8, Total Bilirubin 0.70, Troponin I 0.045 08/25/20 03:48: B-Natriuretic Peptide 3889.9 H 08/25/20 14:41: Troponin I 1.620 H* Rhythm: EKG: Normal sinus rhythm with poor R wave progression ECHO: Globally reduced left ventricular systolic function estimated EF 30% Stress Test: Cardiac Cath: PCI: CT Surgery: Holter monitor: EPS: PPM: CXR: Chest CT Scan: Radiography Diagnostic Testing: Radiology Impression Chest X-Ray 08/25/20 03:49 IMPRESSION: Patchy bilateral lower lobe airspace disease. Findings are concerning for pneumonia. at 0425 Reported and signed by: Rayo Gonzalez MD Electronically Signed: Rayo Gonzalez MD at 4:25 EDT Tel , Service support , Echocardiogram 08/25/20 06:51 Interpretation Summary Normal left ventricle. The estimated ejection fraction is 30 %. Moderately severe global left ventricular systolic dysfunction. There is moderate global hypokinesis of the left ventricle. Contrast injection was performed. Compared to previous study, the left ventricular systolic function has worsened.. Ordering Physician: García Thomas Referring Physician: Zack Stacy Performed By: Jean Marie Cheng RCS
--- NOTE | 2020-08-25 20:17 | CPS ---
Patient's home BiPAP setup at bedside. Water chamber filled with water. Patient knows if he has any problems to tell RN to call MILITARY TECHNOLOGY SPECIALIST to help with BiPAP. MILITARY TECHNOLOGY SPECIALIST will monitor overnight.
[2020-08-25] MEDS: Atorvastatin Calcium 20 MG Tablet PO (20:53)
[2020-08-26] VITALS (13 sets, daily range): BP systolic 134–146; BP diastolic 69–95; PULSE 83–100; RESP 16–18; TEMP 36.6–37.4; O2SAT 90–96
[2020-08-26] MEDS: 0.9% Normal Saline 1,000 ML 60 ML IV (00:30)
--- NOTE | 2020-08-26 05:00 | EKG12_ITS ---
Test Reason : PRE-HEART CATH Blood Pressure : / mmHG Vent. Rate : 105 BPM Atrial Rate : 105 BPM P-R Int : 248 ms QRS Dur : 110 ms QT Int : 344 ms P-R-T Axes : 089 031 083 degrees QTc Int : 454 ms Sinus tachycardia with 1st degree A-V block Low voltage QRS Incomplete left bundle branch block Nonspecific ST and T wave abnormality Abnormal ECG When compared with ECG of 25-AUG-2020 04:02, MANUAL COMPARISON REQUIRED, DATA IS UNCONFIRMED Confirmed by JAMMIE GONZALEZ, ELIGIO ([id number]), fashion editor LEONOR WALTER ([id number]) on 08/27/2020 10:10:32 AM Referred By: JOHN Confirmed By:ELIGIO AGUDELO MD
[2020-08-26] MEDS: hydrALAZINE 50 MG Tablet 100 MG PO (06:05)
[2020-08-26] MEDS: Carvedilol 25 MG Tablet PO (06:05)
[2020-08-26 06:25] LABS: Absolute Neutrophil Count 8.4 X10^3/uL (2.0-7.7); Basophil# 0.03 X10^3/uL; Basophil% 0.3 % (0-1); Eosinophil# 0.01 X10^3/uL; Eosinophils% 0.1 % (0-5); Hematocrit 29.5 % (40-54); Hemoglobin 9.7 g/dL (13.0-16.5); Lymphocyte % 6.1 % (19-41); Mean Corp Hgb Conc 32.9 g/dL (32-36); Mean Corpuscular Hgb 30.7 pg (27.0-32.0); Mean Corpuscular Volume 93.4 fL (80-94); Mean Platelet Vol. 10.1 fl (6.2-12.0); Monocyte# 0.82 X10^3/uL; Monocyte% 8.3 % (0-10); NRBC Flagged by Analyzer 0 % (0-5); Neutrophil # 8.35 X10^3/uL (2.7-7.7); Neutrophil % 84.8 % (47-70); POSITIVE DIFFERENTIAL YES; Platelet Count 190 K/mm3 (150-450); RBC Distribution Width CV 14.2 % (11.6-14.6); Red Blood Count 3.16 M/mm3 (4.6-6.2); White Blood Count 9.9 K/mm3 (4.4-11.0)
[2020-08-26 06:32] LABS: Differential Indicated SCAN CRITERIA MET
[2020-08-26] MEDS: Ipratropium/Albuterol Sulfate 3 ML AMPUL.NEB INHALATION ×2 (06:49→10:40)
[2020-08-26 06:53] LABS: Anion Gap 9 (5-15); BUN 69 mg/dL (7-18); Calcium,Total 9.6 mg/dL (8.5-10.1); Chloride 104 mmol/L (98-107); Cholesterol 128 mg/dL (200); Creatinine, Serum 2.88 mg/dL (0.70-1.30); EST Glomerular Filtration Rate 23 mL/min (>60); Est Glom Filt Rate - Afr Amer 28 mL/min (>60); Estimated Creatinine Clearance 21.04 ml/min; Glucose 123 mg/dL (74-106); High Density Lipoprotein 83 mg/dL; Magnesium 1.9 mg/dL (1.6-2.6); Phosphorus 3.8 mg/dL (2.5-4.9); Potassium 4.4 mmol/L (3.5-5.1); Sodium Level 136 mmol/L (136-145); Triglycerides 56 mg/dL; Very Low Density Lipoprotein 11 mg/dL (5-40)
--- NOTE | 2020-08-26 07:35 | CPS ---
pt placed back on 2 lpm for comfort
--- NOTE | 2020-08-26 09:02 | PN.CARD_ITS ---
Subjective Subjective Pt seen and evaluated Objective Data Vital Signs: Vital Signs Temp Pulse Resp BP Pulse Ox 98.4 F 96 16 146/69 H 90 08/26/20 06:04 08/26/20 07:00 08/26/20 06:49 08/26/20 06:04 08/26/20 06:49 Oxygen Flow Rate (L/min) 2 Oxygen Delivery Method Nasal Cannula Weight: 196 lb 3.382 oz Body Mass Index (BMI) 30.8 Intake & Output: Intake and Output for Last 24 Hours 08/24/20 08/25/20 08/26/20 23:59 23:59 23:59 Intake Total 945 / 1145 260 / 260 Output Total 450 / 450 Balance 495 / 695 260 / 260 Lab / Micro Data Result Diagrams: 08/26/20 05:52 08/26/20 05:52 Labs: Laboratory Results - last 24 hr 08/25/20 08/25/20 08/26/20 14:41 18:11 05:52 WBC 9.9 RBC 3.16 L Hgb 9.7 L Hct 29.5 L MCV 93.4 MCH 30.7 MCHC 32.9 RDW Std Deviation 48.0 H RDW Coeff of Nick 14.2 Plt Count 190 MPV 10.1 Immature Gran % (Auto) 0.400 Neut % (Auto) 84.8 H Lymph % (Auto) 6.1 L [place] % (Auto) 8.3 Eos % (Auto) 0.1 Baso % (Auto) 0.3 Absolute Neuts (auto) 8.4 H Absolute Lymphs (auto) 0.60 L Nucleated RBC % 0 Sodium Potassium Chloride Carbon Dioxide Anion Gap BUN Creatinine Estim Creat Clear Calc Est GFR (MDRD) Af Amer Est GFR (MDRD) Non-Af BUN/Creatinine Ratio Glucose Calcium Phosphorus Magnesium Troponin I 1.620 H* 1.810 H* Triglycerides Cholesterol LDL Cholesterol VLDL Cholesterol HDL Cholesterol 08/26/20 05:52 WBC RBC Hgb Hct MCV MCH MCHC RDW Std Deviation RDW Coeff of Nick Plt Count MPV Immature Gran % (Auto) Neut % (Auto) Lymph % (Auto) [place] % (Auto) Eos % (Auto) Baso % (Auto) Absolute Neuts (auto) Absolute Lymphs (auto) Nucleated RBC % Sodium 136 Potassium 4.4 Chloride 104 Carbon Dioxide 23.0 Anion Gap 9 BUN 69 H Creatinine 2.88 H Estim Creat Clear Calc 21.04 Est GFR (MDRD) Af Amer 28 L Est GFR (MDRD) Non-Af 23 L BUN/Creatinine Ratio 24.0 H Glucose 123 H Calcium 9.6 Phosphorus 3.8 Magnesium 1.9 Troponin I Triglycerides 56 Cholesterol 128 LDL Cholesterol 34 VLDL Cholesterol 11 HDL Cholesterol 83 Micro: Microbiology 08/25/20 05:15 Mucosa - Nose SARS-CoV-2 Antigen (Rapid) - Final Cardiology Labs/Tests 08/25/20 14:41: Troponin I 1.620 H* 08/25/20 18:11: Troponin I 1.810 H* 08/26/20 05:52: WBC 9.9, RBC 3.16 L, Hgb 9.7 L, Hct 29.5 L, MCV 93.4, MCH 30.7, MCHC 32.9, Plt Count 190, MPV 10.1, Immature Gran % (Auto) 0.400, Neut % (Auto) 84.8 H, Lymph % (Auto) 6.1 L, [place] % (Auto) 8.3, Eos % (Auto) 0.1, Baso % (Auto) 0.3, Absolute Neuts (auto) 8.4 H, Nucleated RBC % 0 08/26/20 05:52: Sodium 136, Potassium 4.4, Chloride 104, Carbon Dioxide 23.0, Anion Gap 9, BUN 69 H, Creatinine 2.88 H, Est GFR (MDRD) Af Amer 28 L, Est GFR (MDRD) Non-Af 23 L, BUN/Creatinine Ratio 24.0 H, Glucose 123 H, Calcium 9.6, Phosphorus 3.8, Magnesium 1.9, Triglycerides 56, Cholesterol 128, LDL Cholesterol 34, VLDL Cholesterol 11, HDL Cholesterol 83 Rhythm: EKG: ECHO: Stress Test: Cardiac Cath: PCI: CT Surgery: Holter monitor: EPS: PPM: CXR: Chest CT Scan: Radiography Diagnostic Testing: Radiology Impression Echocardiogram 08/25/20 06:51 Interpretation Summary Normal left ventricle. The estimated ejection fraction is 30 %. Moderately severe global left ventricular systolic dysfunction. There is moderate global hypokinesis of the left ventricle. Contrast injection was performed. Compared to previous study, the left ventricular systolic function has worsened.. Ordering Physician: García Thomas Referring Physician: Zack Stacy Performed By: Jean Marie Cheng RCS Assessment & Plan Assessment/Plan (1) Acute on chronic systolic CHF (congestive heart failure): PLAN: He does appear to have presented with acute on chronic congestive heart failure with systolic dysfunction. * He was diuresed appropriately and is feeling much better. His echocardiogram demonstrates global reduction in left ventricular systolic function. * He is on Entresto as well as carvedilol and hydralazine has been added. * We will continue the above medication as well as appropriate diuretics. (2) NSTEMI (non-ST elevated myocardial infarction): PLAN: He has a non-ST elevation myocardial infarction. Cardiac catheterization demonstrated the following: Distal left main coronary artery lesion significant and hazy. Left anterior descending artery with mild disease. Right coronary artery with subtotally occluded posterolateral branch with colla teralization. Total contrast used 35 cc. Patient prehydrated with 60 cc an hour for 6 hours and will be hydrated post at 60 cc an hour normal saline for 6 hours. Based on the above angiographic findings would recommend transfer for coronary artery bypass surgery (3) HTN (hypertension): PLAN: His blood pressure appears to be under good control at this pa rticular time and we will continue him on the current medications. (4) Coronary atherosclerosis of [place] coronary artery: PLAN: He does have evidence of atherosclerotic cardiovascular disease as noted above. * * Thank you for allowing me to participate in the care of your patient. Please don't hesitate to call if any issues arise.
--- NOTE | 2020-08-26 09:12 | CL.D_ITS ---
Patient Name: ANGIE SINGH Study Date: 08/26/2020 Performing: Neville Moody MD Ht: 67 inches 170 cm : 1945 Wt: 196.5 lbs 89 kg Age: 75 Gender: male BSA: 2 PROCEDURE(S) PERFORMED LZ90-SAS/COR CLINICAL PROFILE AND INDICATIONS Indications: Suspected CAD Heart Failure: NYHA Class: 3, Newly Diagnosed: Yes, Heart Failure Type: Systolic Stress/Imaging Stress/Image Study Performed: No CONCLUSIONS Severe coronary artery disease with a hazy distal left main stenosis and ostial left circumflex arter y. Subtotally occluded posterolateral vessel noted. RECOMMENDATIONS Surgery consult for coronary revascularization DESCRIPTION OF PROCEDURE The patient arrived to the procedure lab. The risks and benefits of the procedure as well as a full d escription of our services here and current unavailability of surgical backup were fully explained to the patient and/or their significant other prior to the catheterization. The Timeout was completed, verifying the correct patient and procedure. The patient's procedural site was prepped and draped in the usual fashion. Local anesthetic was given subcutaneously to right radial region with Lidocaine 2% . Using a modified Seldinger technique, arterial access was obtained via the right radial artery, a 6 Fr sheath was inserted. Left Coronary Artery selective angiography was performed in multiple views u sing a 5 Fr. 4.0 Kelso catheter. Right Coronary Artery selective angiography was then performed in mu ltiple views using a 5 Fr. 4.0 Kelso catheter.The arterial sheath was pulled and a TR Band was applie d for hemostasis. 15cc of air CORONARY ANGIOGRAPHY DOMINANCE: Right Dominant LEFT HEART ASSESSMENT Left Ventricular Ejection Fraction: by Echo 30 % Global Hypokinesis - Moderate Depressed Left Ventricular systolic function LEFT MAIN: Distal hazy 80% stenosis LEFT ANTERIOR DESCENDING ARTERY: Mild luminal irregularities CIRCUMFLEX ARTERY: OSTIAL CIRC: 90 % Stenosis RIGHT CORONARY ARTERY: Mild luminal irregularities less than 30%; previous stent patent RT PLV: is occluded COMPLICATIONS No Complications PROCEDURE MEDICATIONS Fentanyl 50 mcg IV Versed 1 mg IV Oxygen: 2 L/min via nasal cannula Heparin given IA 08/26/2020 08:47:18 Verapamil 2.5mg, Ntg 100mcgs, 3000 units of Heparin given IA 08/26/2020 08:47:18 SUMMARY OF HEMODYNAMIC DATA Time AIR REST ECG 08:35:59 Art 134/63 (87) 08:49:19 AO 131/74 (97) SA 08:52:04 Signed By Neville Moody MD On 08/26/2020 09:11:23 Neville Moody MD
[2020-08-26] MEDS: Magnesium Chloride 64 MG Delay Rel.Tablet 128 MG PO (09:35)
[2020-08-26] MEDS: levoFLOXacin IV 250 MG/50 ML BAG 50 MG IV (09:35)
[2020-08-26] MEDS: Ascorbic Acid 500 MG Tablet PO (09:35)
[2020-08-26] MEDS: Multivitamins,Therapeutic Tablet 1 TABLET PO (09:35)
[2020-08-26] MEDS: Allopurinol 100 MG Tablet PO (09:35)
[2020-08-26] MEDS: guaiFENesin 1,200 MG Tablet 1200 MG PO (09:39)
--- NOTE | 2020-08-26 10:49 | NURSING ---
Called report to RN at [facility]
--- NOTE | 2020-08-26 11:58 | PHA.DC.MR ---
Pharmacy Service has performed discharge medication reconciliation for this patient. The patient's discharge medication list was reviewed for discrepancies and discrepancies were resolved. Home Medications allopurinol 100 mg tablet 100 mg PO BID 05/03/18 ascorbic acid (vitamin C) 500 mg tablet 500 mg PO DAILY 05/03/18 aspirin 81 mg chewable tablet 81 mg PO DAILY 05/03/18 magnesium oxide 400 mg PO BID cap 05/03/18 nitroglycerin 0.4 mg sublingual tablet 0.4 mg SUBLINGUAL Q5-15M PRN 05/03/18 omeprazole 20 mg tablet,delayed release 20 mg PO DAILY PRN PRN 01/01/19 albuterol sulfate 2.5 mg INHALATION Q4H PRN #180 ml 04/09/19 Carvedilol 25 mg PO BID 11/14/19 fluticasone propionate 2 spray INTRANASAL DAILY 11/14/19 guaifenesin 1,200 mg PO DAILY 11/14/19 hydralazine 100 mg PO BID 11/14/19 multivitamin 1 ea PO DAILY 11/14/19 rosuvastatin 10 mg PO QHS 11/14/19 sacubitril-valsartan 1 tab PO BID 11/14/19 tacrolimus 1 mg PO BID 11/14/19 Vitamin B3 3,000 iu PO/SL DAILY 08/25/20 furosemide 40 mg PO BREAKFAST 08/25/20 furosemide [Lasix] 20 mg PO QHS 08/25/20 glycopyrrolate-formoterol [Bevespi Aerosphere] 2 puff INHALATION BID 08/25/20 vit C-s.qeddnv-tyocaa-agclk sd [Tart Bernstein] 1 cap PO DAILY 08/25/20
--- NOTE | 2020-08-26 14:43 | PCM.DC.SUM ---
Providers Date of Admission: 08/25/20 Primary Care Physician: Dr. Zack Stacy MD Consultations 08/25/20 15:53 Consult: Cardiology Routine Consulting Provider: Neville Moody Reason for Consult: nstemi EMERGENT Consult: No Notified: Yes Date Notified: 08/25/20 Time Notified: 15:53 Method of Notification: Text 08/25/20 19:08 Consult: Nephrology Routine Consulting Provider: Deana Leblanc Reason for Consult: CKD4, heart cath EMERGENT Consult: No MD Notified: Yes Date Notified: 08/25/20 Time Notified: 19:08 Method of Notification: md to md Reason For Visit: CHF, PNEUMONIA Diagnosis Discharge Diagnosis (1) Acute on chronic systolic CHF (congestive heart failure): Status: Acute Code(s): I50.23 - Acute on chronic systolic (congestive) heart failure (2) NSTEMI (non-ST elevated myocardial infarction): Status: Acute Code(s): I21.4 - Non-ST elevation (NSTEMI) myocardial infarction (3) HTN (hypertension): Status: Chronic Code(s): I10 - Essential (primary) hypertension (4) Coronary atherosclerosis of [place] coronary artery: Status: Chronic Code(s): I25.10 - Atherosclerotic heart disease of [place] coronary artery without angina pectoris Medications at Discharge Home Medications allopurinol 100 mg tablet 100 mg PO BID 05/03/18 ascorbic acid (vitamin C) 500 mg tablet 500 mg PO DAILY 05/03/18 aspirin 81 mg chewable tablet 81 mg PO DAILY 05/03/18 magnesium oxide 400 mg PO BID cap 05/03/18 nitroglycerin 0.4 mg sublingual tablet 0.4 mg SUBLINGUAL Q5-15M PRN 05/03/18 omeprazole 20 mg tablet,delayed release 20 mg PO DAILY PRN PRN 01/01/19 albuterol sulfate 2.5 mg INHALATION Q4H PRN #180 ml 04/09/19 Carvedilol 25 mg PO BID 11/14/19 fluticasone propionate 2 spray INTRANASAL DAILY 11/14/19 guaifenesin 1,200 mg PO DAILY 11/14/19 hydralazine 100 mg PO BID 11/14/19 multivitamin 1 ea PO DAILY 11/14/19 rosuvastatin 10 mg PO QHS 11/14/19 sacubitril-valsartan 1 tab PO BID 11/14/19 tacrolimus 1 mg PO BID 11/14/19 Vitamin B3 3,000 iu PO/SL DAILY 08/25/20 furosemide 40 mg PO BREAKFAST 08/25/20 furosemide [Lasix] 20 mg PO QHS 08/25/20 glycopyrrolate-formoterol [Bevespi Aerosphere] 2 puff INHALATION BID 08/25/20 vit C-s.qbqwoj-xfwfob-plhmp sd [Tart Bernstein] 1 cap PO DAILY 08/25/20 Hospital Course Summary of Care Provided Hospital Course: Patient is 75-year gentleman with history of coronary artery status post 4 stents in 2005 was admitted for shortness of breath predominantly along with mild chest tightness, burning in nature. Chest x-ray showed bilateral patchy, reported as suspicious for pneumonia. Patient was admitted in PCU on diuretics and Levaquin. nuclear monitoring technician shows sinus rhythm with PVCs on my assessment it seemed patient had CHF exacerbation with no clinical features of pneumonia including fever, tachypnea, cough with sputum or sepsis features. BNP markedly elevated. Second and third troponin was elevated therefore compo caster was consulted. EKG showed no obvious acute ST-T changes suggestive of ischemia. Non-STEMI diagnosis was made probable cause for CHF exacerbation. 2D echo was done and shows global LV systolic dysfunction EF 30%. Patient on carvedilol and Entresto. Decision made for cardiac cath and subsequently Lasix, Entresto and Prograf were held. Craft Artist was consulted and I talked to Dr. Leblanc Suggest to start IV fluid normal saline 6 hours prior to cath in 3 to 6 hours afterwards depending on fluid status. On 08/26: Cardiac cath was done with minimal contrast. Reported left main distal hazy 80% stenosis, circumflex ostial 90% stenosis, LAD mild, RCA mild less than 30%, previous stent patent and right PLV occluded. Overall, compo caster Dr. Moody suggested CABG and he discussed clinical and left heart cath findings with compo caster Dr. Anna and patient was accepted in [facility] under hospitalist service. Patient other comorbidities symptoms stable. He has COPD and is on inhalers but not on oxygen History of his smoking quit about 25?30 years ago. History of coronary artery stents in 2005, systolic CHF and chronic kidney disease, stage IIIb. Patient states he is on Prograf/tacrolimus for chronic kidney disease started by his outside sales engineer but does not have any immunosuppressive condition or transplant history. Discharge diagnosis: Acute on chronic systolic heart failure secondary to non-STEMI Physical Exam Narrative Seen and examined. Patient felt mild chest tightness/burning pain last night. No new shortness of breath at rest but mild dyspnea on exertion. 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 Physical exam General: Alert, Oriented x3, Cooperative HEENT: Atraumatic, PERRLA, EOMI, Normocephalic Oral: No Gingival or Mucosal Lesions/ Ulcerations Neck: Supple, No JVD, Negative Carotid Bruits Lungs: Air entry diminished in bilateral lung bases. No crepitations or wheezing. Cardiovascular: Regular rate, Regular Rhythm, Normal S1, Normal S2, No murmurs Abdomen: Bowel Sounds Present, Soft, Non Tender, Non-Distended : No renal angle tenderness. No suprapubic tenderness. Extremities: No edema, Capillary Refill Less than 3 Seconds Skin: No rashes, No breakdown Musculoskeletal: No Tenderness to Palpation of Joints or Extremities Neurological: Cranial nerves II-XII grossly intact, Deep Tendon Reflexes 2+/4 and Symmetrical, Neuro grossly intact Psych/Mental Status: Normal Affect, Appropriate. Weight / BMI Weight Weight: 196 lb 3.382 oz Body Mass Index (BMI) 30.8 ABG / Lab / Microbiology Data Result Diagrams: 08/26/20 05:52 08/26/20 05:52 Laboratory: Laboratory Results - last 24 hr 08/25/20 08/25/20 08/26/20 14:41 18:11 05:52 WBC 9.9 RBC 3.16 L Hgb 9.7 L Hct 29.5 L MCV 93.4 MCH 30.7 MCHC 32.9 RDW Std Deviation 48.0 H RDW Coeff of Nick 14.2 Plt Count 190 MPV 10.1 Immature Gran % (Auto) 0.400 Neut % (Auto) 84.8 H Lymph % (Auto) 6.1 L [place] % (Auto) 8.3 Eos % (Auto) 0.1 Baso % (Auto) 0.3 Absolute Neuts (auto) 8.4 H Absolute Lymphs (auto) 0.60 L Nucleated RBC % 0 Sodium Potassium Chloride Carbon Dioxide Anion Gap BUN Creatinine Estim Creat Clear Calc Est GFR (MDRD) Af Amer Est GFR (MDRD) Non-Af BUN/Creatinine Ratio Glucose Calcium Phosphorus Magnesium Troponin I 1.620 H* 1.810 H* Triglycerides Cholesterol LDL Cholesterol VLDL Cholesterol HDL Cholesterol 08/26/20 05:52 WBC RBC Hgb Hct MCV MCH MCHC RDW Std Deviation RDW Coeff of Nick Plt Count MPV Immature Gran % (Auto) Neut % (Auto) Lymph % (Auto) [place] % (Auto) Eos % (Auto) Baso % (Auto) Absolute Neuts (auto) Absolute Lymphs (auto) Nucleated RBC % Sodium 136 Potassium 4.4 Chloride 104 Carbon Dioxide 23.0 Anion Gap 9 BUN 69 H Creatinine 2.88 H Estim Creat Clear Calc 21.04 Est GFR (MDRD) Af Amer 28 L Est GFR (MDRD) Non-Af 23 L BUN/Creatinine Ratio 24.0 H Glucose 123 H Calcium 9.6 Phosphorus 3.8 Magnesium 1.9 Troponin I Triglycerides 56 Cholesterol 128 LDL Cholesterol 34 VLDL Cholesterol 11 HDL Cholesterol 83 Microbiology: Microbiology 08/25/20 05:15 Mucosa - Nose SARS-CoV-2 Antigen (Rapid) - Final Meaningful Use Info Meaningful Use Diagnoses (Choose all that apply): AMI AMI/Post PCI/Angioplasty Aspirin given w/in 24hrs of arrival?: Yes ASA at discharge?: No Reason ASA not ordered:: Warfarin rx at discharge (Aspirin held for proposed CABG surgery) Antiplatelet Therapy at Discharge:: No Statins at discharge?: Yes Ralph/ARB at discharge?: Yes Beta Henny at discharge?: Yes Done w/ Acute [place] measure.: Yes Documented LVEF (%): 30 CHF RALPH/ARB ordered at discharge?: Yes Documented LVEF (%): 30 Discharge Plan Admission Admit Date/Time: 08/25/20 06:51 Attending Provider: Bronson Mckeon Primary Care Provider: Zack Stacy Consulting Providers: Neville Moody ; Deana Leblanc Instructions Additional Instructions / Restrictions: Patient Problems: Altered Health Status related to Hospitalization Patient Goals: *Optimal Level of Health *Keep Appointments *Medication Compliance *Remain Safe Discharge Orders/Prescriptions Prescriptions: No Action allopurinol 100 mg tablet 100 mg PO BID RF: 0 aspirin 81 mg tablet,chewable 81 mg PO DAILY RF: 0 magnesium oxide 400 mg capsule 400 mg PO BID RF: 0 nitroglycerin 0.4 mg tablet, sublingual 0.4 mg SUBLINGUAL Q5-15M PRN (Reason: chest pain) RF: 0 ascorbic acid (vitamin C) 500 mg tablet 500 mg PO DAILY RF: 0 omeprazole 20 mg tablet,delayed release (DR/EC) 20 mg PO DAILY PRN PRN (Reason: Indigestion) RF: 0 albuterol sulfate 2.5 mg /3 mL (0.083 %) solution for nebulization 2.5 mg INHALATION Q4H PRN (Reason: Sob &/Or Wheezing) Qty: 180 RF: 3 tacrolimus 1 MG capsule 1 mg PO BID RF: 0 guaifenesin 1,200 MG tablet extended release 12hr 1,200 mg PO DAILY RF: 0 multivitamin 1 EACH tablet 1 ea PO DAILY RF: 0 hydralazine 50 MG tablet 100 mg PO BID RF: 0 rosuvastatin 10 MG tablet 10 mg PO QHS RF: 0 sacubitril-valsartan 1 EACH tablet 1 tab PO BID RF: 0 Carvedilol 25 MG tablet 25 mg PO BID RF: 0 fluticasone propionate 16 GM spray,suspension 2 spray INTRANASAL DAILY RF: 0 Tart Bernstein 40-643-59-75-20 mg Capsule 1 cap PO DAILY RF: 0 Bevespi Aerosphere 9-4.8 mcg HFA aerosol inhaler 2 puff INHALATION BID RF: 0 Vitamin B3 3,000 iu PO/SL DAILY RF: 0 furosemide 40 mg tablet 40 mg PO BREAKFAST RF: 0 furosemide [Lasix] 20 mg Tablet 20 mg PO QHS RF: 0 Referrals / Follow Up: Zack Stacy MD [Primary Care Provider] - Disposition Discharge Orders: Discharge Patient (Routine); Ordered 08/26/20 Ordered By: Dr. Bronson Mckeon Charges/Coding Visit Charges Inpatient E&M: 48734 Disch Hosp
== END 2020-08-26 12:06 | disposition home or self-care (01) | DRG 280 ==
LOC: ED 06:26 → PCU 07:06
PROVIDERS: Admitting Provider Family Medicine; Emergency Provider Emergency Medicine; PCP Family Medicine; Visit Provider Internal Medicine
DX: I13.0 Hypertensive heart and chronic kidney disease with heart failure and stage 1 through stage 4 chronic kidney disease, or unspecified chronic kidney disease (principal); I21.4 Non-ST elevation (NSTEMI) myocardial infarction; I50.23 Acute on chronic systolic (congestive) heart failure; J44.9 Chronic obstructive pulmonary disease, unspecified; R09.02 Hypoxemia; D64.9 Anemia, unspecified; I49.3 Ventricular premature depolarization; I42.9 Cardiomyopathy, unspecified; E66.9 Obesity, unspecified; E78.5 Hyperlipidemia, unspecified; G47.33 Obstructive sleep apnea (adult) (pediatric); I25.10 Atherosclerotic heart disease of native coronary artery without angina pectoris; I44.0 Atrioventricular block, first degree; K21.9 Gastro-esophageal reflux disease without esophagitis; M10.9 Gout, unspecified; N18.32 Chronic kidney disease, stage 3b; N52.9 Male erectile dysfunction, unspecified; N40.0 Benign prostatic hyperplasia without lower urinary tract symptoms; I25.2 Old myocardial infarction; M51.16 Intervertebral disc disorders with radiculopathy, lumbar region; M48.07 Spinal stenosis, lumbosacral region; Z86.73 Personal history of transient ischemic attack (TIA), and cerebral infarction without residual deficits; Z68.30 Body mass index [BMI] 30.0-30.9, adult; Z87.891 Personal history of nicotine dependence; Z95.5 Presence of coronary angioplasty implant and graft; Z79.82 Long term (current) use of aspirin; Z79.899 Other long term (current) drug therapy
CPT/HCPCS: 36415; 71045; 80048; 80053; 80061; 83735; 83880; 84100; 84484; 85025; 87426; 93005; 93306; 93454; 94640; 97802; 99152; 99285; J7030; J7050; Q9957; Q9967; A4216; C1769; C1894; C8929; J1940; J3490

== ENCOUNTER → 2020-10-06 12:37 | Outpatient (CLI) | payer MEDICARE, OTHER, SELFPAY ==
[2020-09-23 05:36] VITALS: BMI 28.8
--- NOTE | 2020-10-06 12:39 | VDUE_ITS ---
Reason For Study: CKD4 Right Arm Left Arm Right cephalic vein is compressible. Left cephalic vein is compressible. Right Cephalic Vein at the shoulder Left Cephalic Vein at the shoulder measures .4 x .38 cm. measures .39 x .35 cm. Right Cephalic Vein mid bicep measures .44 Left Cephalic Vein at mid bicep measures .35 x .47 cm. x .35 cm. Right Cephalic Vein above antecub Left Cephalic Vein above antecub measures .34 measures .46 x .48 cm. x .39 cm. Right Cephalic Vein below antecub measures .2 Left Cephalic Vein below antecub measures .36 x .25 cm. x .37 cm. Right Cephalic Vein in the forearm Left Cephalic Vein in the forearm measures .24 x .26 cm. measures .25 x .24 cm. Right Cephalic Vein at the wrist measures .13 Left Cephalic Vein at the wrist measures .2 x .15 cm. x .23 cm. Right basilic vein is compressible. Left basilic vein is compressible. Right Basilic Vein mid bicep measures .21 Basilic vein at bicep measures .39 x .37 cm. x .24 cm. Basilic vein above antecub measures .36 x .35 Right Basilic Vein above antecub measures .25 cm. x .25 cm. Basilic vein below antecub measures .16 x .18 Right Basilic Vein below antecub measures .13 cm. x .16 cm. Basilic vein in the forearm measures .15 Right Basilic Vein in the forearm x .17 cm. measures .14 x .18 cm. Basilic vein at the wrist measures .13 x .17 Right Basilic Vein at the wrist measures .16 cm. x .19 cm. Brachial art .44 x .47 cm. Brachial art .46 x .46 cm. Brachial art 73.5 cm/s. Brachial art 91.5 cm/s. Radial art .32 x .3 cm. Radial art .21 x .24 cm. Radial art 84.2 cm/s. Radial art 97.0 cm/s. VL/Saphenous Vein Mapping, Bilat Interpretation Summary Patent and compressible bilateral upper extremity cephalic and basilic veins wi th dimensions as noted. Right forearm cephalic vein smaller in diameter. Right upper arm basilic vein relatively small Bilateral brachial and radial arteries patent with normal flow Ordering Physician: Ramesh Victor Performed By: Poncho Hussein RVT and Student ?
== END ==
PROVIDERS: PCP Family Medicine; Referring Provider Student in an Organized Health Care Education/Training Program; Visit Provider Student in an Organized Health Care Education/Training Program
DX: Z01.818 Encounter for other preprocedural examination (principal); N18.4 Chronic kidney disease, stage 4 (severe)
CPT/HCPCS: 93970; 93985

== ENCOUNTER → 2020-11-09 14:55 | Outpatient (CLI) | payer MEDICARE, OTHER, SELFPAY ==
--- NOTE | 2020-11-09 15:08 | RAD_ITS ---
HISTORY: shortness of breath EXAMINATION/TECHNIQUE: XR Chest 2 Views: 2 views COMPARISON: 08/25/20 FINDINGS: LINES/DEVICES: None. LUNGS: Mild vascular prominence with bibasilar pleural effusions. MEDIASTINUM AND CARDIOVASCULAR STRUCTURES: Stable cardiomegaly with interval cardiac surgery changes. Central airways and mediastinal contour are unremarkable. BONES AND SOFT TISSUES: No acute bony abnormalities. RAD/Chest PA and Lateral IMPRESSION: Cardiomegaly with vascular congestion and bilateral pleural effusions. Findings likely represent recent episode of congestive failure or fluid overload. Follow-up to resolution recommended. at 1534 Reported and signed by: Yunior Knox MD Electronically Signed: Yunior Knox MD at 15:33 EDT Tel , Service support ,
== END ==
PROVIDERS: PCP Family Medicine; Visit Provider Nurse Practitioner Acute Care
DX: J90 Pleural effusion, not elsewhere classified (principal)
CPT/HCPCS: 71046

== ENCOUNTER → 2020-11-11 08:10 | Outpatient (CLI) | payer MEDICARE, OTHER, SELFPAY ==
--- NOTE | 2020-11-11 | FLU_PTH ---
PATIENT: ANGIE SINGH LOC: U#:[id number] AGE/SX: 79/M ROOM: RE11/11/[address]: CARLOS Swift : 1945 BED: DIS: SPEC #: [id number] RECD: 11/11/20 09:42 STATUS: PENNY JING #: [id number] AVEL: 11/11/20 00:[address]: Farideh Phan NP DEPT: CYTOLOGY RECD BY: Fidelina Osman ENTERED: 11/11/20 13:19 SP TYPE: Fluid OTHR DR: Dr. Zack Stacy MD Tissues: THORACIC FLUID Procedures: Special Stain Group II Surgery Specimen Level IV Cytospin Fluid HEADER OPERATION: Ultrasound-guided right thoracentesis PRE-OP DIAGNOSIS: Pleural effusion TISSUE SUBMITTED: Thoracentesis fluid for cytology DIAGNOSIS CYTOLOGY Thoracentesis fluid for cytology (cytospin and cell block): Negative for malignant cells. Acute inflammation. See comment. SJ:[email or web address] 11/12/2020 COMMENT Clinical correlation and appropriate follow up are necessary. CYTOLOGY STUDY Slides are reviewed. CYTOLOGY GROSS Received is 90 ml of yellow cloudy fluid labeled with the patient's name and and designated per the requisition as thoracentesis. Submitted for cytology preparation including cell block. / eladio 11/11/2020 TC:2 CPT: 28801, 02769
--- NOTE | 2020-11-11 08:13 | US_ITS ---
PROCEDURE: ULTRASOUND GUIDED THORACENTESIS. CLINICAL INDICATION: Right pleural effusion . PHYSICIAN: Joann Vyas MD MEDICATIONS: 1% lidocaine administered subcutaneously for local anesthesia. ACCESS SITE: Right lower thorax, posterior approach. CATHETER: 5 [place]gu[place] thoracentesis needle/catheter system. FLUID: Approximately 1100 mL of oral: pleural fluid removed. COMPLICATIONS: None immediate. The risks, benefits, and alternatives to the procedure and sedation were explained to the patient. The specific risks of bleeding, infection, and pneumothorax requiring chest tube insertion were discussed and accepted. Written informed consent was obtained. PROCEDURE: Ultrasonographic evaluation of the right lower pleural space was carried out. An adequate pocket was identified. The patient was placed in the sitting, upright position. The overlying skin was prepped and draped in sterile fashion. 1% lidocaine was administered subcutaneously for local anesthesia. Under ultrasound guidance, a 5 [place]guillan thoracentesis needle/catheter system was advanced into the right posterior lower pleural fluid collection. The inner stylet was removed and there was spontaneous flow of pleural fluid. Approximately 1100 mL of fluid was manually aspirated. The catheter was removed. Hemostasis was achieved and a sterile dressing was applied. A specimen was collected and sent to the laboratory for analysis, as requested by the referring clinician. The patient tolerated the procedure well, without immediate complications. A chest x-ray was ordered. US/Thoracentesis W US IMPRESSION: Successful ultrasound-guided right thoracentesis. Electronically Signed: Ilia Vyas MD at 14:09 EDT Tel , Service support ,
[2020-11-11] MEDS: Lidocaine 2% (20 ml mdv) 20 ML Vial INFILT (09:27)
--- NOTE | 2020-11-11 09:30 | RAD_ITS ---
INDICATION: post thora EXAMINATION/TECHNIQUE: X-RAY - XR Chest 2 Views COMPARISON: 11/09/2020. FINDINGS: LINES/DEVICES: Sternal wires seen in position. LUNGS: No evidence of pneumothorax. Decreased bilateral pleural effusions seen in comparison to the prior study. Prominence of the bronchovascular interstitial lung markings is visualized in bilateral lung jimenez with bilateral hilar prominence and peribronchial cuffing seen. Linear streaky opacities consistent with subsegmental atelectatic changes seen MEDIASTINUM AND CARDIOVASCULAR STRUCTURES: Cardiac silhouette is enlarged but demonstrates no change in comparison to the prior study. BONES AND SOFT TISSUES: Unremarkable. RAD/Chest Insp/Exp 2 View IMPRESSION: Congestive changes. Decreased bilateral pleural effusions in comparison to the prior study. No evidence of pneumothorax is seen. Electronically Signed: Ilia Vyas MD at 10:51 EDT Tel , Service support ,
[2020-11-11 09:51] VITALS: BP 137/74; BP 142/70; BP 143/83; BP 155/93; PULSE 72; PULSE 75; PULSE 79; RESP 20; TEMP 36.6; O2SAT 88; O2SAT 97; O2SAT 98
[2020-11-11 10:00] LABS: Cytology, Body Fluid / CSF SEE PATHOLOGY REPORT
[2020-11-11 10:51] LABS: Body Fluid Mononuclear WBC # 0.124 10^3/uL; Body Fluid Mononuclear WBC % 74.3 %; Body Fluid Polynuclear WBC # 0.043 10^3/uL; Body Fluid Polynuclear WBC % 25.7 %; Body Fluid Total Cells Counted 0.171 10^3/ul; White Blood Count/Body Fluid 0.167 10^3/uL
[2020-11-11 11:11] LABS: LDH,Body Fluid 70 Units/l (Not Establ.); Protein, Body Fluid 1.8 g/dL (Not Establ.)
[2020-11-11 12:14] LABS: Auto B Fluid Analyzer BKGD Ct COUNTS W/IN LIMITS (W/IN LIMITS); Source- Body Fluid THORACENTESIS
[2020-11-11 12:15] LABS: Appearance/Body Fluid CLEAR; Color/Body Fluid YELLOW; Red Cell Count/Body Fluid 29 /mm3
[2020-11-11 12:16] LABS: Lymphocytes 24 %; Monocytes 7 %; Neutrophil (Segs) 63 %; Other Cell Type/BF 6 %
[2020-11-11 12:18] LABS: Body Fluid QC Type(s) BF1Q
[2020-11-12 13:02] LABS: Pathologist Comment/Body Fluid Reviewed
== END ==
PROVIDERS: PCP Family Medicine; Referring Provider Nurse Practitioner Acute Care; Visit Provider Nurse Practitioner Acute Care
DX: J90 Pleural effusion, not elsewhere classified (principal)
CPT/HCPCS: 32555; 71046; 83615; 84157; 87070; 87075; 87205; 88108; 88305; 88313; 89050

== ENCOUNTER → 2020-11-12 08:35 | Outpatient (CLI) | payer MEDICARE, OTHER, SELFPAY ==
--- NOTE | 2020-11-12 08:37 | US_ITS ---
PROCEDURE: ULTRASOUND GUIDED THORACENTESIS. CLINICAL INDICATION: 75-year-old male with left pleural effusion. PHYSICIAN: Joann Vyas MD MEDICATIONS: 1% lidocaine administered subcutaneously for local anesthesia. ACCESS SITE: Left lower thorax, posterior approach. CATHETER: 5 [place] thoracentesis needle/catheter system. FLUID: Approximately 1100 mL of serous pleural fluid removed. COMPLICATIONS: None immediate. The risks, benefits, and alternatives to the procedure and sedation were explained to the patient. The specific risks of bleeding, infection, and pneumothorax requiring chest tube insertion were discussed and accepted. Written informed consent was obtained. PROCEDURE: Ultrasonographic evaluation of the left lower pleural space was carried out. An adequate pocket was identified. The patient was placed in the sitting, upright position. The overlying skin was prepped and draped in sterile fashion. 1% lidocaine was administered subcutaneously for local anesthesia. Under ultrasound guidance, a 5 [place] thoracentesis needle/catheter system was advanced into the left posterior lower pleural fluid collection. The inner stylet was removed and there was spontaneous flow of pleural fluid. Approximately 1100 mL of fluid was manually aspirated. The catheter was removed. Hemostasis was achieved and a sterile dressing was applied. A specimen was collected and sent to the laboratory for analysis, as requested by the referring clinician. The patient tolerated the procedure well, without immediate complications. A chest x-ray was ordered. US/Thoracentesis W US IMPRESSION: Successful ultrasound-guided left thoracentesis. Electronically Signed: Ilia Vyas MD at 14:38 EDT Tel , Service support ,
[2020-11-12] MEDS: Lidocaine 2% (20 ml mdv) 20 ML Vial INFILT (09:30)
--- NOTE | 2020-11-12 09:46 | RAD_ITS ---
INDICATION: post thora- lt side EXAMINATION/TECHNIQUE: X-RAY - XR Chest 2 Views COMPARISON: 11/11/2020. FINDINGS: Sternal wires are seen. Bilateral hilar prominence seen, peribronchial cuffing with prominence of the bronchovascular interstitial lung markings visualized and demonstrates prominence in comparison to the prior study. Linear streaky opacities visualized in bilateral lung field suggestive of subsegmental atelectatic streaks. Mild blunting of bilateral costophrenic angles is visualized. Improved aeration of bilateral lung jimenez is seen in comparison to the prior study. No evidence of pneumothorax is seen. Mild prominence of the cardiomediastinal silhouette is visualized demonstrating no significant change. Degenerative bone changes. RAD/Chest Insp/Exp 2 View IMPRESSION: Improved aeration of the lung jimenez in comparison to the prior study, no evidence of pneumothorax is seen. Electronically Signed: Ilia Vyas MD at 10:31 EDT Tel , Service support ,
[2020-11-12 09:49] VITALS: BP 136/88; BP 147/79; BP 153/79; BP 154/75; PULSE 70; PULSE 71; PULSE 72; RESP 16; RESP 18; RESP 20; TEMP 36.7; O2SAT 94; O2SAT 95; O2SAT 96
[2020-11-12 10:55] LABS: International Normalized Ratio 1.3; Prothrombin Time (Protime)PT. 15.4 SECONDS (11.7-14.9)
[2020-11-12 10:56] LABS: Partial Thromboplast Time 37.5 Seconds (24.1-36.2)
[2020-11-12 11:33] LABS: ALB/GLOB Ratio 0.9 RATIO (0.9-2.4); Globulin 3.5 g/dL (2.2-4.2); LDH 262 U/L (87-241); Protein, Total 6.8 g/dL (6.4-8.2)
[2020-11-12 14:29] LABS: LDH,Body Fluid 85 Units/l (Not Establ.)
[2020-11-12 14:35] LABS: Protein, Body Fluid 1.9 g/dL (Not Establ.)
== END | disposition home or self-care (01) ==
PROVIDERS: PCP Family Medicine; Referring Provider Nurse Practitioner Acute Care; Visit Provider Nurse Practitioner Acute Care
DX: J90 Pleural effusion, not elsewhere classified (principal); R06.02 Shortness of breath
CPT/HCPCS: 32555; 36415; 71046; 83615; 84156; 84157; 85610; 85730

== ENCOUNTER 2020-11-25 07:15 | Day surgery (SDC) | payer MEDICARE, OTHER, SELFPAY ==
--- NOTE | 2020-11-24 09:44 | EKG12_ITS ---
Test Reason : PRE OP Blood Pressure : / mmHG Vent. Rate : 071 BPM Atrial Rate : 071 BPM P-R Int : 238 ms QRS Dur : 114 ms QT Int : 518 ms P-R-T Axes : 086 048 060 degrees QTc Int : 562 ms Sinus rhythm with 1st degree A-V block Low voltage QRS Incomplete left bundle branch block Nonspecific T wave abnormality Abnormal ECG Confirmed by JEREMIAS GONZALEZ, MAGGIE ([id number]), loan expeditor LEONOR WALTER ([id number]) on 11/25/2020 10:42:15 AM Referred By: Donaldo Tucker Confirmed By:MAGGIE MCDOWELL MD
[2020-11-24 10:00] LABS: Hematocrit 31.9 % (40-54); Hemoglobin 9.8 g/dL (13.0-16.5); Mean Corp Hgb Conc 30.7 g/dL (32-36); Mean Corpuscular Volume 97.6 fL (80-94); Mean Platelet Vol. 9.2 fl (6.2-12.0); Platelet Count 285 K/mm3 (150-450); RBC Distribution Width SD 64.2 fl (35.1-43.9); Red Blood Count 3.27 M/mm3 (4.6-6.2); White Blood Count 6.7 K/mm3 (4.4-11.0)
[2020-11-24 10:30] LABS: Anion Gap 7 (5-15); BUN 41 mg/dL (7-18); BUN/Creat Ratio 17.2 RATIO (10-20); Chloride 103 mmol/L (98-107); Creatinine, Serum 2.39 mg/dL (0.70-1.30); EST Glomerular Filtration Rate 28 mL/min (>60); Est Glom Filt Rate - Afr Amer 34 mL/min (>60); Glucose 99 mg/dL (74-106); Potassium 4.1 mmol/L (3.5-5.1); Sodium Level 141 mmol/L (136-145)
[2020-11-25] VITALS (9 sets, daily range): BP systolic 125–144; BP diastolic 69–80; PULSE 61–71; RESP 16–20; TEMP 36–36.6; O2SAT 92–98; BMI 29.1
--- NOTE | 2020-11-25 08:43 | HP.PCM_ITS ---
History and Physical Date of Admission: 11/25/20 Intake Visit Reasons: FISTULA, VM 10/06 Chief Complaint: fistula creation [employer] Required: No Is patient in pain?: No Allergies Penicillins Allergy (Severe, Verified 11/19/20 07:52) Rash, 105 temp amlodipine Allergy (Verified 11/19/20 07:52) itching and rash aspirin Adverse Reaction (Mild, Verified 11/19/20 07:52) rash Medications allopurinol 100 mg tablet 100 mg PO BID 05/03/18 [History Confirmed 11/19/20] aspirin 81 mg chewable tablet 81 mg PO DAILY 05/03/18 [History Confirmed 11/19/20] magnesium oxide 400 mg PO BID cap 05/03/18 [History Confirmed 11/19/20] nitroglycerin 0.4 mg sublingual tablet 0.4 mg SUBLINGUAL Q5-15M PRN 05/03/18 [History Confirmed 11/19/20] omeprazole 20 mg tablet,delayed release 20 mg PO DAILY PRN PRN 01/01/19 [History Confirmed 11/19/20] Carvedilol 25 mg PO BID 11/14/19 [History Confirmed 11/09/20] multivitamin 1 ea PO DAILY 11/14/19 [History Confirmed 11/19/20] glycopyrrolate-formoterol [Bevespi Aerosphere] 2 puff INHALATION BID 08/25/20 [History Confirmed 11/19/20] vit C-s.legsjh-ketbci-dhzeu sd [Tart Bernstein] 1 cap PO DAILY 08/25/20 [History Confirmed 11/19/20] furosemide 20 mg tablet 40 mg PO QHS tab 09/23/20 [History Confirmed 11/19/20] ferrous sulfate 325 mg (65 mg iron) tablet 325 mg PO BID 11/09/20 [History Confirmed 11/19/20] sertraline 50 mg tablet 50 mg PO DAILY 11/09/20 [History Confirmed 11/19/20] sodium zirconium cyclosilicate 10 gram oral powder packet 10 g PO .every other day ea 11/09/20 [History Confirmed 11/19/20] fluticasone propionate 50 mcg/actuation nasal spray,suspension 2 spray INTRANASAL DAILY #16 g 11/11/20 [Rx Confirmed 11/19/20] amiodarone 200 mg tablet mg PO 11/19/20 [History Confirmed 11/19/20] apixaban 5 mg tablet 5 mg PO BID tab 11/19/20 [History Confirmed 11/19/20] rosuvastatin 10 mg tablet mg PO 11/19/20 [History Confirmed 11/19/20] sacubitril 24 mg-valsartan 26 mg tablet 1 tab PO BID 11/19/20 [History Confirmed 11/19/20] [facility] Medical History (Updated 11/19/20 @ 08:[address] Donaldo Tucker MD) Abnormal chest CT Anemia BPH (benign prostatic hyperplasia) Chest pain Chronic kidney disease, stage 3 Congestive heart failure (CHF) COPD (chronic obstructive pulmonary disease) Coronary artery disease involving coronary bypass graft Coronary atherosclerosis of [place] coronary artery CPAP (continuous positive airway pressure) dependence Erectile dysfunction Former smoker GERD (gastroesophageal reflux disease) Gout HLD (hyperlipidemia) HTN (hypertension) Lumbar disc disease with radiculopathy Lumbosacral stenosis Myocardial infarct Obesity MARCELO (obstructive sleep apnea) Psychosexual dysfunction with inhibited sexual excitement Surgical History (Updated 11/19/20 @ 07:51 by Isatu Correa) H/O left cataract extraction History of colonoscopy History of heart artery stent History of knee replacement procedure of left knee History of open heart surgery (~08/2020) History of total right knee replacement Family History Mother , 84 y.o. Hypertension CVA (cerebral vascular accident) Father , 70 y.o. Heart disease Hodgkin disease Sister , 72 y.o. Heart disease Social History household members: spouse housing: house pets and animals: No Smoking Status: Former smoker second hand exposure: No alcohol intake: current alcohol intake frequency: holidays/special occasions only HPI HPI HPI: ANGIE SINGH, is a 75 M who presents to the office today for surgical consultation regarding creation of arteriovenous hemodialysis fistula. The patient is referred by with a diagnosis of stage V chronic renal insufficiency. Written copy of my surgical consult and recommendations will return to him. At the [facility] on November 12, 2020 the patient had a ultrasound-guided left chest thoracentesis of 1100 cc of fluid. He feels much better. He is breathing better. He had this pleural fluid problem that predated his coronary bypass surgery. He is right arm dominant. He has not had any hemodialysis catheters placed. October 06, 2020 Reason For Study: CKD4 Right Arm Left Arm Right cephalic vein is compressible. Left cephalic vein is compressible. Right Cephalic Vein at the shoulder Left Cephalic Vein at the shoulder measures .4 x .38 cm. measures .39 x .35 cm. Right Cephalic Vein mid bicep measures .44 Left Cephalic Vein at mid bicep measures .35 x .47 cm. x .35 cm. Right Cephalic Vein above antecub Left Cephalic Vein above antecub measures .34 measures .46 x .48 cm. x .39 cm. Right Cephalic Vein below antecub measures .2 Left Cephalic Vein below antecub measures .36 x .25 cm. x .37 cm. Right Cephalic Vein in the forearm Left Cephalic Vein in the forearm measures .24 x .26 cm. measures .25 x .24 cm. Right Cephalic Vein at the wrist measures .13 Left Cephalic Vein at the wrist measures .2 x .15 cm. x .23 cm. Right basilic vein is compressible. Left basilic vein is compressible. Right Basilic Vein mid bicep measures .21 Basilic vein at bicep measures .39 x .37 cm. x .24 cm. Basilic vein above antecub measures .36 x .35 Right Basilic Vein above antecub measures .25 cm. x .25 cm. Basilic vein below antecub measures .16 x .18 Right Basilic Vein below antecub measures .13 cm. x .16 cm. Basilic vein in the forearm measures .15 Right Basilic Vein in the forearm x .17 cm. measures .14 x .18 cm. Basilic vein at the wrist measures .13 x .17 Right Basilic Vein at the wrist measures .16 cm. x .19 cm. Brachial art .44 x .47 cm. Brachial art .46 x .46 cm. Brachial art 73.5 cm/s. Brachial art 91.5 cm/s. Radial art .32 x .3 cm. Radial art .21 x .24 cm. Radial art 84.2 cm/s. Radial art 97.0 cm/s. VL/Saphenous Vein Mapping, Bilat Interpretation Summary Patent and compressible bilateral upper extremity cephalic and basilic veins with dimensions as noted. Right forearm cephalic vein smaller in diameter. Right upper arm basilic vein relatively small Bilateral brachial and radial arteries patent with normal flow Ordering Physician: Ramesh Victor Performed By: Poncho Hussein RVT and Student ? 10/06/20 [id number] Donaldo Tucker MD ROS General General: Yes weight change and fatigue; No appetite, colon cancer, breast cancer or weakness HEENT HEENT: Yes eye surgery; No difficulty swallowing, eye injury, swollen glands or hoarseness Endo Endocrine: No thyroid disease, diabetes mellitus, thyroid cancer, Hair loss, heat intolerance or cold intolerance Musc Musculoskeletal: Yes back problems, arthritis and gout; No rheumatoid arthritis or joint pain Cardio Cardiovascular: Yes heart disease, atrial fibrillation, high blood pressure, heart attack and heart stent; No murmur, pacemaker, palpitations, shortness of breat with exertion or chest pain Psych Psychiatric: Yes depression; No anxiety or hearing voices Resp Respiratory: Yes shortness of breath, Yes sleep apnea, No cough, Yes COPD, No asthma, No emphysema and No wheezing Gastro Gastrointestinal: No abdominal pain, No nausea or vomiting, No diarrhea, No constipation, No blood in stool, No acid reflux, No hemorrhoids, No ulcers, No gallbladder problem and No black,tarry stools Roger Hematologic: Yes blood thinners, No blood disorders, No bleeding, Yes anemia and No blood clots Neuro Neurologic: No weakness Exam Const General: cooperative, comfortable and no acute distress Nutritional Appearance: overweight HENMT Head: normal to inspection Neck Carotids: normal carotid upstroke and no bruits Other: Kyphotic Chest Other: Increased anterior posterior diameter. Kyphosis Resp Other: Slight Drive bibasilar rale. Adequate respiratory excursion GI Palpation: soft and no hepatosplenomegaly Skin Other: Scattered areas of ecchymosis bilateral upper and lower extremities Neuro Cognition: normal cognition Gait: normal gait Extrem General: no calf tenderness bilaterally Other: 2+ bilateral extremity edema Psych Affect: normal affect COVID (Procedure Consent) Procedure Criteria Procedure Criteria: Yes Elective The surgeon/proceduralist and patient have di scussed in detail the risk of exposure to and/or potential harm posed by the COVID-19 virus with having a surgery/procedure at this time versus the risk of delaying the surgery/procedure. It is not possible to know either the risk of delaying the surgery or procedure or chance of getting an infection with perfect accuracy, but a joint decision was made between the patient and the surgeon/proceduralist to proceed at this time with the scheduled surgery/procedure as indicated on the consent form. Assessment and Plan Assessment and Plan (1) Chronic renal failure, stage 4 (severe): Status: Chronic Plan - Dr. Donaldo Tucker MD: Pleasant 75-year-old gentleman. He has ongoing cardiac and pleural effusion problems. He is on chronic Eliquis therapy. That is for atrial fibrillation. He had carotid bypass grafting August 2020. He has need of an arteriovenous fistula creation for hemodialysis. He is right arm dominant. I visually inspected his left extremity with ultrasound. The left forearm cephalic vein is patent although somewhat borderline in dimension. It is closer to the surface certainly than the upper arm vein. He is on chronic anticoagulation. He is fairly recent out from his coronary bypass surgery. He is having recurrent problems with current pleural effusion. With all of that in mind I believe that a more simplified left forearm radiocephalic arteriovenous hemodialysis fistula creation would be pertinent. I have described him technique, benefit, risk, alternatives. We will have him hold his Eliquis when day preoperatively. He has had an opportunity to ask and have questions answered. He is aware that there are no guarantees of success. I very much appreciate the kind opportunity of assisting with the surgical care. Copy: Dr. Zack Stacy and Dr.Bucktowarsing Donaldo Tucker M.D., F.A.C.S. It is of note that recent pleural fluid that was obtained on November 11, 2020 through the [facility] ultrasound-guided right thoracentesis was negative for malignant cells but there was acute inflammation. Coding Level of Care Code 98652 Diagnoses Chronic renal failure, stage 4 (severe) N18.4 I have re-examined the patient. There are no clinical changes since date of exam. Donaldo Tucker M.D., F.A.C.S.
--- NOTE | 2020-11-25 09:14 | EX.PCM.DISCH ---
Discharge Instructions Procedure Fistula Diet Discharge Diet: Renal Diet Activity Discharge Activity: May Not Drive (for 2-3 days or while taking narcotic pain medications.), May Shower and May Take a Tub Bath (in 5 days.) Lifting Restrictions: 5 pounds Keep extremity elevated above heart level: - (Keep arm elevated above the heart level for 3 days.) Dressing / Incision Call your doctor if your incision/area has: Continuous Slow Oozing, Sudden Increased Bleeding (apply pressure and call your doctor.), Increased Pain/ Swelling, Increased Redness and Foul Smelling Discharge Call your doctor if you observe: Fever of 101 or Higher Suture Line Care: Avoid Pulling/Pushing and Avoid Pinching/Bending Cleanse incision/area with: Keep Dressing Clean & Dry Additional Dressing/Incision Instructions:: Change or remove dressing in one day. May protect with a gauze bandaid. Follow Up Care Please Follow Up With: Donaldo Tucker MD When: Call [phone] to make an appointment for suture removal and follow up in 1 week. Test Results: Test results from this visit will be discussed in further detail at your follow-up appointment, if applicable. Discharge Plan Admission Attending Provider: Donaldo Tucker Primary Care Provider: Zack Stacy Discharge Orders/Prescriptions Prescriptions: No Action allopurinol 100 mg tablet 100 mg PO BID RF: 0 aspirin 81 mg tablet,chewable 81 mg PO DAILY RF: 0 magnesium oxide 400 mg capsule 400 mg PO BID RF: 0 nitroglycerin 0.4 mg tablet, sublingual 0.4 mg SUBLINGUAL Q5-15M PRN (Reason: chest pain) RF: 0 omeprazole 20 mg tablet,delayed release (DR/EC) 20 mg PO DAILY PRN PRN (Reason: Indigestion) RF: 0 amiodarone 200 mg tablet 200 mg PO DAILY RF: 0 rosuvastatin [Crestor] 10 mg tablet 10 mg PO QHS RF: 0 Eliquis 5 mg tablet 5 mg PO BID RF: 0 Entresto 24-26 mg tablet 1 tab PO BID RF: 0 sertraline 50 mg tablet 50 mg PO DAILY RF: 0 ferrous sulfate [iron] 325 mg (65 mg iron) tablet 325 mg PO BID RF: 0 Lokelma 10 gram powder in packet 10 g PO .every other day RF: 0 multivitamin 1 EACH tablet 1 ea PO DAILY RF: 0 Tart Bernstein 56-577-06-75-20 mg Capsule 1 cap PO DAILY RF: 0 Bevespi Aerosphere 9-4.8 mcg HFA aerosol inhaler 2 puff INHALATION BID RF: 0 furosemide [Lasix] 20 mg tablet 80 mg PO QHS RF: 0 albuterol sulfate 2.5 mg /3 mL (0.083 %) solution for nebulization 2.5 mg inhalation PRN PRN (Reason: COPD) RF: 0 ascorbic acid (vitamin C) [Vitamin C] 500 mg Capsule, Extended Release 500 mg PO DAILY RF: 0 metoprolol succinate 25 mg tablet extended release 24 hr 25 mg PO BID RF: 0 guaifenesin [Mucinex] 600 mg Tablet Extended Release 12hr 600 mg PO BID RF: 0 fluticasone propionate 50 mcg/actuation spray,suspension 2 spray INTRANASAL DAILY Qty: 16 RF: 3
[2020-11-25] MEDS: Lidocaine 1% (30 ml sdv) 30 ML Vial (10:00)
[2020-11-25] MEDS: Heparin Injection (Vial) 5,000 UNIT/ML VIAL 5000 UNIT (10:00)
[2020-11-25] MEDS: Bupivacaine Mpf 0.5% 30 ML VIAL (10:00)
--- NOTE | 2020-11-25 10:56 | PCM.OPRPT ---
Problems Associated Problem List Diagnoses (1) Chronic renal failure, stage 4 (severe): Report of Operation Date of Procedure: 11/18/20 Pre-Operative Diagnosis: Stage IV chronic renal insufficiency Post-Operative Diagnosis: Same Surgery/Procedure Performed:: Failed attempt at left forearm radiocephalic arteriovenous fistula creation, neurolysis with repair Description of Surgical Findings:: Timeout informed consent was obtained. 75-year-old gent was taken the operating placed on the table underwent monitored anesthesia care. The left extremity was sterilely prepped and draped. Ultrasound was performed identifying a quite small cephalic vein. It was ink mapped on the skin. 26 cc of 1% lidocaine mixed 50-50 with 0.5% Marcaine was used as anesthetic. Based upon the vein mapping an oblique incision was made in the left wrist. Sharp and blunt dissection was used to identify the cephalic vein. Is dissected free proximally and distally. Then the radial artery was identified. It was circumferentially dissected free. The cephalic vein was ligated distally it was noted to be very diminutive was ligated at a branch point immediate attempt to spatulated the vein but the vein was too small. At this point thought about doing a radial to basilic AV graft but we did not have the correct graft material. I then elected to try to further dissect more proximally underneath the tunnel and curved the vein over. And so doing however there was superficial nerve that got injured on the radial aspect of the forearm. I then approximated that with interrupted 6-0 Prolene sutures. At this point I felt that further intervention was not appropriate and I ended the procedure. Wounds were closed with deep layers of interrupted 3-0 Vicryl and running septic or 4-0 Monocryl. Steri-Strips Telfa OpSite dressings applied. Blood loss minimal counts correct. It is of note that upon the anticipated anastomosis patient did receive 7000 units of heparin. No reversal agent was given. No arteriotomies were made. Specimens none. Drains none. Blood loss minimal. My signature Surgeon: Donaldo Tucker Type of Anesthesia: Local MAC Anesthesiologist: Rian Montez
== END 2020-11-25 14:04 | disposition home or self-care (01) ==
LOC: SDC 07:15 → AC 07:15
PROVIDERS: PCP Family Medicine; Referring Provider Surgery; Visit Provider Surgery
PROC: (CPT 36818; principal; 2020-11-25 09:20)
DX: I12.9 Hypertensive chronic kidney disease with stage 1 through stage 4 chronic kidney disease, or unspecified chronic kidney disease (principal); N18.4 Chronic kidney disease, stage 4 (severe); D64.9 Anemia, unspecified; J44.9 Chronic obstructive pulmonary disease, unspecified; I25.10 Atherosclerotic heart disease of native coronary artery without angina pectoris; K21.9 Gastro-esophageal reflux disease without esophagitis; M10.9 Gout, unspecified; E78.5 Hyperlipidemia, unspecified; I25.2 Old myocardial infarction; N40.0 Benign prostatic hyperplasia without lower urinary tract symptoms; G47.33 Obstructive sleep apnea (adult) (pediatric); F41.9 Anxiety disorder, unspecified; M19.90 Unspecified osteoarthritis, unspecified site; F32.9 Major depressive disorder, single episode, unspecified; M51.16 Intervertebral disc disorders with radiculopathy, lumbar region; M48.07 Spinal stenosis, lumbosacral region; I48.91 Unspecified atrial fibrillation; Z95.1 Presence of aortocoronary bypass graft; Z79.01 Long term (current) use of anticoagulants; Z79.82 Long term (current) use of aspirin; Z79.899 Other long term (current) drug therapy; Z87.891 Personal history of nicotine dependence
CPT/HCPCS: 01780; 36818; 64708; 36415; 80048; 85027; 93005; J7040

== ENCOUNTER 2020-12-04 12:08 | Emergency (ER) | payer MEDICARE, OTHER, SELFPAY ==
[2020-12-04 12:09] VITALS: BP 127/87; PULSE 67; RESP 14; TEMP 36.8; O2SAT 85; BMI 29.1
[2020-12-04 12:12] VITALS: O2SAT 98
[2020-12-04 12:20] VITALS: O2SAT 94
--- NOTE | 2020-12-04 12:36 | EKG12_ITS ---
Test Reason : SOB Blood Pressure : / mmHG Vent. Rate : 067 BPM Atrial Rate : 067 BPM P-R Int : 244 ms QRS Dur : 116 ms QT Int : 406 ms P-R-T Axes : 065 113 -01 degrees QTc Int : 429 ms Sinus rhythm with 1st degree A-V block Low voltage QRS (Limb Leads) Poor R wave progression Confirmed by JEREMIAS GONZALEZ, MAGGIE ([id number]), editor producer LEONOR WALTER ([id number]) on 12/07/2020 11:40:13 AM Referred By: TARI/VALENTINE Confirmed By:MAGGIE MCDOWELL MD
[2020-12-04 12:51] LABS: Absolute Lymphocyte Count 0.92 X10^3/uL (0.83-4.51); Absolute Neutrophil Count 5.4 X10^3/uL (2.0-7.7); Basophil# 0.07 X10^3/uL; Basophil% 0.9 % (0-1); Eosinophil# 0.36 X10^3/uL; Eosinophils% 4.9 % (0-5); Hematocrit 33.8 % (40-54); Hemoglobin 10.7 g/dL (13.0-16.5); Lymphocyte # 0.92 X10^3/ul (0.83-4.51); Lymphocyte % 12.5 % (19-41); Mean Corp Hgb Conc 31.7 g/dL (32-36); Mean Corpuscular Hgb 30.3 pg (27.0-32.0); Mean Corpuscular Volume 95.8 fL (80-94); Mean Platelet Vol. 9.5 fl (6.2-12.0); Monocyte# 0.58 X10^3/uL; Monocyte% 7.9 % (0-10); NRBC Flagged by Analyzer 0 % (0-5); Neutrophil # 5.42 X10^3/uL (2.7-7.7); Neutrophil % 73.5 % (47-70); Platelet Count 279 K/mm3 (150-450); RBC Distribution Width CV 17.4 % (11.6-14.6); RBC Distribution Width SD 61.3 fl (35.1-43.9); Red Blood Count 3.53 M/mm3 (4.6-6.2); White Blood Count 7.4 K/mm3 (4.4-11.0)
--- NOTE | 2020-12-04 12:55 | ED.VIS.DYS ---
HPI History of Present Illness Chief Complaint: Shortness of Breath Informant: patient and family Narrative Narrative: Patient is 75-year-old male with very complex medical history including stage III COPD, recurrent pleural effusions, coronary artery disease status post CABG this year and CKD 4 presenting with worsening shortness of breath. Patient states he has oxygen to wear at home as needed. He notes in the morning when he is not wearing his oxygen his O2 sat will be 84 to 85%. He notes over the past 3 days has had increased lower extremity edema and dyspnea on exertion as well as orthopnea. He denies any associated chest pain. Patient is on Eliquis but not have a dose today. Is concerning as needs another thoracentesis. His last one was November 11 and then subsequent one on November 12. This was ordered by Dr. Ramirez. Prior to that he had while on October 27 ordered by his PCP in [place]. [facility] Medical History Abnormal chest CT Ambulates with cane Anemia Anemia Anxiety Arthritis Back pain BPH (benign prostatic hyperplasia) Cardiology follow-up encounter Chest pain Chronic kidney disease, stage 3 Congestive heart failure (CHF) COPD (chronic obstructive pulmonary disease) COPD (chronic obstructive pulmonary disease) Coronary artery disease involving coronary bypass graft Coronary atherosclerosis of morongo coronary artery CPAP (continuous positive airway pressure) dependence CPAP (continuous positive airway pressure) dependence Depression Dietary restriction Emphysema, unspecified Erectile dysfunction Former smoker Former smoker GERD (gastroesophageal reflux disease) Gout Gout High cholesterol History of atrial fibrillation History of echocardiogram History of edema History of heart attack History of renal disease HLD (hyperlipidemia) HTN (hypertension) Hypertension Lumbar disc disease with radiculopathy Lumbosacral stenosis Myocardial infarct Obesity On home oxygen therapy MARCELO (obstructive sleep apnea) Psychosexual dysfunction with inhibited sexual excitement Shortness of breath on exertion Sleep apnea Wears dentures Wears glasses Home Medications allopurinol 100 mg tablet 100 mg PO BID 05/03/18 [History Last Taken 11/14/19] aspirin 81 mg chewable tablet 81 mg PO DAILY 05/03/18 [History Last Taken 11/14/19] magnesium oxide 400 mg PO BID cap 05/03/18 [History Last Taken 11/14/19] nitroglycerin 0.4 mg sublingual tablet 0.4 mg SUBLINGUAL Q5-15M PRN 05/03/18 [History Last Taken Unknown] omeprazole 20 mg tablet,delayed release 20 mg PO DAILY PRN PRN 01/01/19 [History Last Taken 11/25/20 06:30] multivitamin 1 ea PO DAILY 11/14/19 [History Last Taken 11/14/19] Bevespi Aerosphere 2 puff INHALATION BID 08/25/20 [History Last Taken Unknown] Tart Bernstein 1 cap PO DAILY 08/25/20 [History Last Taken Unknown] ferrous sulfate 325 mg (65 mg iron) tablet 325 mg PO BID 11/09/20 [History Last Taken Unknown] sertraline 50 mg tablet 50 mg PO DAILY 11/09/20 [History Last Taken Unknown] sodium zirconium cyclosilicate 10 gram oral powder packet 10 g PO .every other day ea 11/09/20 [History Last Taken Unknown] fluticasone propionate 50 mcg/actuation nasal spray,suspension 2 spray INTRANASAL DAILY #16 g 11/11/20 [Rx Last Taken Unknown] amiodarone 200 mg tablet 200 mg PO DAILY 11/19/20 [History Last Taken 11/25/20 06:30] apixaban 5 mg tablet 5 mg PO BID tab 11/19/20 [History Last Taken 11/22/20] rosuvastatin 10 mg tablet 10 mg PO QHS 11/19/20 [History Last Taken Unknown] sacubitril 24 mg-valsartan 26 mg tablet 1 tab PO BID 11/19/20 [History Last Taken Unknown] albuterol sulfate 2.5 mg INHALATION PRN PRN 11/23/20 [History Last Taken Unknown] ascorbic acid (vitamin C) [Vitamin C] 500 mg PO DAILY 11/23/20 [History Last Taken Unknown] guaifenesin [Mucinex] 600 mg PO BID 11/23/20 [History Last Taken Unknown] metoprolol succinate 25 mg PO BID 11/23/20 [History Last Taken 11/25/20 06:30] furosemide [Lasix] 80 mg PO BID #0 tab 12/04/20 [Rx Last Taken Unknown] furosemide [Lasix] 80 mg PO BID #14 tab 12/04/20 [Rx Last Taken Unknown] Allergy/AdvReac Type Severity Reaction Status Date / Time Penicillins Allergy Severe Rash, 105 Verified 12/04/20 12:09 temp amlodipine Allergy itching Verified 12/04/20 12:09 and rash prednisone Allergy Other Verified 12/04/20 12:09 aspirin AdvReac Mild rash Verified 12/04/20 12:09 Family History Mother , 84 y.o. Hypertension CVA (cerebral vascular accident) Father , 70 y.o. Heart disease Hodgkin disease Sister , 72 y.o. Heart disease Surgical History H/O left cataract extraction History of cardiac catheterization History of colonoscopy History of coronary artery stent placement History of heart artery stent History of heart surgery History of knee replacement procedure of left knee History of open heart surgery (~08/2020) History of total right knee replacement Social History household members: spouse housing: house pets and animals: No Smoking Status: Former smoker second hand exposure: No alcohol intake: current alcohol intake frequency: holidays/special occasions only ROS ROS ED Constitutional Constitutional ED: Denies fatigue or weakness Eyes Eyes: Denies blurry vision Cardiovascular Cardiovascular: Reports orthopnea; Denies chest pain or palpitations Respiratory/Chest Respiratory/Chest: Reports dyspnea, dyspnea on exertion and orthopnea; Denies cough Gastrointestinal Gastrointestinal: Denies abdominal pain, nausea or vomiting Genitourinary Genitourinary ED: Denies decreased urination or dysuria Musculoskeletal Musculoskeletal: Denies arthralgias, extremity pain or myalgias Integumentary Denies new lesions or rash Neurologic Neurologic: Denies paresthesias or weakness Psychiatric Psychiatric: Denies anxiety or depression Hematologic/Lymphatic Hematologic/Lymphatic: Denies easy bleeding or easy bruising EXAM Physical Exam Const Vital Signs: 12/04/20 12:09 12/04/20 12:12 12/04/20 12:20 Temperature 98.2 F Temperature Source Temporal Pulse Rate 67 Respiratory Rate 14 Respiratory Effort Short of Breath Accessory Muscle Use Respiratory Depth Normal Respiratory Pattern Normal Blood Pressure 127/87 H Blood Pressure Mean 100 Pulse Ox 85 98 Oxygen Delivery Method Room Air Nasal Cannula Nasal Cannula Oxygen Flow Rate (L/min) 2 2 Positive well nourished and well developed General Appearance ED: well developed HEENT Reports moist mucous membranes atraumatic Eyes PERRL and EOMs intact bilaterally Neck supple and no JVD Resp normal respiratory effort and clear to auscultation bilaterally Auscultation: diminished lung sounds bilateral lower Cardio regular rate, regular rhythm and no murmurs GI non-tender and non-distended Auscultation: normoactive bowel sounds Palpation: soft Extremity normal to inspection Extremity Narrative: 2+ bilateral pitting edema up to the mid tib General Extremety ED: Yes edema; Negative for tenderness General Extremity: edema Neuro oriented x3 Sensorium / Orientation: alert Motor Exam: Negative for general weakness or strength abnormal Psych mental status grossly normal Thought Process: normal thought process Skin no wounds Lesions: no lesions Rashes: no rashes MDM MDM MDM Narrative Medical decision making narrative: Patient is a 75-year-old male with extensive medical history presenting with increased dyspnea on exertion and shortness of breath. He is concerned he has recurrent pleural effusion. He is not in any respiratory distress. He is hypoxic upon arrival but notes that he does have home oxygen. Patient's O2 saturation normalizes with 2 L of nasal cannula. CBC shows a chronic anemia which is stable. He does have an elevated creatinine of 2.14 however this is at his baseline. His BNP is greater than 5000 and while he does have a chronically elevated BNP this is above his baseline. Chest x-ray shows bilateral pleural effusions. They are mild however. Discussed with the hospitalist whether patient would benefit from inpatient diuresing given that he is already on 80 mg of Lasix daily. Patient is overall well-appearing and Dr. Mckeon feels that we could increase his Lasix to 80 mg twice daily and treat outpatient. Patient and are agreeable with this plan of care. Patient is given a dose of 40 mg IV Lasix in the ER prior to discharge. He is counseled on return precautions, hold precautions for the Lasix and fluid restrictions. Patient is counseled on signs and symptoms requiring return to the emergency room. Patient verbalizes agreement and understand this plan. Patient discharged home in stable and improved condition. Lab Data Attestation: I reviewed the patient's lab results. Labs: Laboratory Results - last 24 hr 12/04/20 12/04/20 12/04/20 12:30 12:30 12:30 WBC 7.4 RBC 3.53 L Hgb 10.7 L Hct 33.8 L MCV 95.8 H MCH 30.3 MCHC 31.7 L RDW Std Deviation 61.3 H RDW Coeff of Nick 17.4 H Plt Count 279 MPV 9.5 Immature Gran % (Auto) 0.300 Neut % (Auto) 73.5 H Lymph % (Auto) 12.5 L Garden % (Auto) 7.9 Eos % (Auto) 4.9 Baso % (Auto) 0.9 Absolute Neuts (auto) 5.4 Absolute Lymphs (auto) 0.92 Nucleated RBC % 0 Sodium 139 Potassium 4.3 Chloride 104 Carbon Dioxide 31.0 Anion Gap 4 L BUN 42 H Creatinine 2.14 H Estim Creat Clear Calc 28.31 Est GFR (MDRD) Af Amer 39 L Est GFR (MDRD) Non-Af 32 L BUN/Creatinine Ratio 19.6 Glucose 106 Calcium 8.9 Total Bilirubin 0.40 AST 29 ALT 29 Alkaline Phosphatase 130 H Troponin I High Sens 38 B-Natriuretic Peptide > 5000.0 H Total Protein 6.8 Albumin 3.0 L Globulin 3.8 Albumin/Globulin Ratio 0.8 L Radiography Chest X-Ray - ED: 1 View, Read by ED Physician, Read by Radiologist, CHF, Right Effusion and Left Effusion Diagnostic Testing: Radiology Impression Chest X-Ray 12/04/20 12:56 IMPRESSION: Mild degree of CHF with small bilateral pleural effusions and bibasilar atelectasis. Electronically Signed: Parminder Benton MD at 13:11 EDT , Service support , Rhythm Strip Rhythm Strip: Sinus Rhythm Rate: 67 Ectopy: None EKG Initial EKG: Attestation: I personally reviewed and interpreted this EKG as follows: Interpretation: Sinus Rhythm Comments: Normal sinus rhythm at a rate of 67 with first-degree AV block. NJ interval 244 Normal axis Normal QRS and QTc Low voltage QRS Normal ST segments Discharge Plan Triage Chief Complaint: Shortness of Breath ED Provider: Wendy Lozada Dx/Rx/DC Orders Clinical Impression: Acute on chronic systolic CHF (congestive heart failure), Pleural effusion, Chronic renal failure, stage 4 (severe) Instructions: ED Heart Failure, Congestive (CHF) Prescriptions: New furosemide [Lasix] 80 mg tablet 80 mg PO BID Qty: 14 RF: 0 Continued allopurinol 100 mg tablet 100 mg PO BID RF: 0 aspirin 81 mg tablet,chewable 81 mg PO DAILY RF: 0 magnesium oxide 400 mg capsule 400 mg PO BID RF: 0 nitroglycerin 0.4 mg tablet, sublingual 0.4 mg SUBLINGUAL Q5-15M PRN (Reason: chest pain) RF: 0 omeprazole 20 mg tablet,delayed release (DR/EC) 20 mg PO DAILY PRN PRN (Reason: Indigestion) RF: 0 amiodarone 200 mg tablet 200 mg PO DAILY RF: 0 rosuvastatin [Crestor] 10 mg tablet 10 mg PO QHS RF: 0 apixaban 5 mg tablet 5 mg PO BID RF: 0 Entresto 24-26 mg tablet 1 tab PO BID RF: 0 sertraline 50 mg tablet 50 mg PO DAILY RF: 0 ferrous sulfate [iron] 325 mg (65 mg iron) tablet 325 mg PO BID RF: 0 Lokelma 10 gram powder in packet 10 g PO .every other day RF: 0 multivitamin 1 EACH tablet 1 ea PO DAILY RF: 0 Tart Bernstein [id number] mg Capsule 1 cap PO DAILY RF: 0 Bevespi Aerosphere 9-4.8 mcg HFA aerosol inhaler 2 puff INHALATION BID RF: 0 albuterol sulfate 2.5 mg /3 mL (0.083 %) solution for nebulization 2.5 mg inhalation PRN PRN (Reason: COPD) RF: 0 ascorbic acid (vitamin C) [Vitamin C] 500 mg Capsule, Extended Release 500 mg PO DAILY RF: 0 metoprolol succinate 25 mg tablet extended release 24 hr 25 mg PO BID RF: 0 guaifenesin [Mucinex] 600 mg Tablet Extended Release 12hr 600 mg PO BID RF: 0 fluticasone propionate 50 mcg/actuation spray,suspension 2 spray INTRANASAL DAILY Qty: 16 RF: 3 Changed furosemide [Lasix] 20 mg tablet 80 mg PO BID Qty: 0 RF: 0 Primary Care Provider: Zack Stacy Referrals: Ricky Ramirez MD [STAFF PHYSICIAN] - 3-5 Days Zack Stacy MD [Primary Care Provider] - Activity Restrictions/Additional Instructions: Limit your water intake to 1.5 L a day. Increase your Lasix to 80 mg twice a day. Check your blood pressure before taking the medication both in the mornings and in the evenings. If your systolic blood pressure (the top number) is below 100, please hold your Entresto. You may need to hold the medication or decrease the dosage if you are starting to feel lightheaded or dizzy. Avoid salt intake. Please return to the emergency room if you have worsening symptoms or having increased O2 demands greater than 4 L on your home oxygen. Disposition Disposition: Home, Self Care
--- NOTE | 2020-12-04 12:56 | RAD_ITS ---
STUDY: X-RAY CHEST REASON FOR EXAM: Male, 75 years old. SOB TECHNIQUE: Single AP portable view of the chest. COMPARISON: Comparison is made with prior study dated 11/12/2020. FINDINGS: EKG electrodes are seen. There is evidence of vascular congestion and mild CHF small bilateral pleural effusions with bibasilar atelectasis. Sternal cerclage wires and vascular clips are present from a prior sternotomy and coronary artery bypass graft procedure (CABG). Normal mediastinum and isaura. Normal visualized pulmonary arteries. There is atherosclerotic calcification of the aortic arch with tortuosity. There are diffuse degenerative changes of the visualized thoracic spine. Normal visualized ribs, clavicles, and shoulders. There is no demonstrated abnormality of the visualized soft tissue structures of the upper abdomen. RAD/Chest 1 View (Portable) IMPRESSION: Mild degree of CHF with small bilateral pleural effusions and bibasilar atelectasis. Electronically Signed: Parminder Benton MD at 13:11 EDT , Service support ,
[2020-12-04 13:05] LABS: ALB/GLOB Ratio 0.8 RATIO (0.9-2.4); AST(SGOT) 29 U/L (15-37); Alanine Aminotransfer ALT/SGPT 29 U/L (16-61); Alkaline Phosphatase 130 U/L (45-117); Anion Gap 4 (5-15); BUN 42 mg/dL (7-18); BUN/Creat Ratio 19.6 RATIO (10-20); Calcium,Total 8.9 mg/dL (8.5-10.1); Chloride 104 mmol/L (98-107); Creatinine, Serum 2.14 mg/dL (0.70-1.30); EST Glomerular Filtration Rate 32 mL/min (>60); Est Glom Filt Rate - Afr Amer 39 mL/min (>60); Estimated Creatinine Clearance 28.31 ml/min; Globulin 3.8 g/dL (2.2-4.2); Glucose 106 mg/dL (74-106); Potassium 4.3 mmol/L (3.5-5.1); Protein, Total 6.8 g/dL (6.4-8.2); Sodium Level 139 mmol/L (136-145); Troponin-I HS 38 pg/mL (3.0-78.0)
[2020-12-04 13:10] LABS: BNP,B-Type NATRIURETIC PEPTIDE > 5000.0 pg/mL (0-100)
[2020-12-04] MEDS: Furosemide 40 MG/4 ML Vial IV (14:37)
[2020-12-04 14:39] VITALS: BP 147/91; PULSE 68; RESP 16; RESP 19; TEMP 37; O2SAT 97
[2020-12-04 15:07] VITALS: BP 148/85; PULSE 64; RESP 14; O2SAT 97
== END 2020-12-04 15:09 | disposition home or self-care (01) ==
PROVIDERS: Emergency Provider Emergency Medicine; PCP Family Medicine
DX: I13.0 Hypertensive heart and chronic kidney disease with heart failure and stage 1 through stage 4 chronic kidney disease, or unspecified chronic kidney disease (principal); I50.23 Acute on chronic systolic (congestive) heart failure; J90 Pleural effusion, not elsewhere classified; I44.0 Atrioventricular block, first degree; I48.91 Unspecified atrial fibrillation; I25.2 Old myocardial infarction; D64.9 Anemia, unspecified; I25.10 Atherosclerotic heart disease of native coronary artery without angina pectoris; J44.9 Chronic obstructive pulmonary disease, unspecified; K21.9 Gastro-esophageal reflux disease without esophagitis; M10.9 Gout, unspecified; M19.90 Unspecified osteoarthritis, unspecified site; N18.4 Chronic kidney disease, stage 4 (severe); N40.0 Benign prostatic hyperplasia without lower urinary tract symptoms; M51.16 Intervertebral disc disorders with radiculopathy, lumbar region; G47.33 Obstructive sleep apnea (adult) (pediatric); F32.9 Major depressive disorder, single episode, unspecified; F41.9 Anxiety disorder, unspecified; E78.5 Hyperlipidemia, unspecified; E78.00 Pure hypercholesterolemia, unspecified; Z95.1 Presence of aortocoronary bypass graft; Z79.01 Long term (current) use of anticoagulants; Z79.82 Long term (current) use of aspirin; Z79.899 Other long term (current) drug therapy; Z87.891 Personal history of nicotine dependence
CPT/HCPCS: 71045; 80053; 83880; 84484; 85025; 87426; 93005; 96374; 99284; A4216; J1940

== ENCOUNTER 2020-12-14 07:30 | Day surgery (SDC) | payer MEDICARE, OTHER, SELFPAY ==
[2020-12-08 11:45] LABS: Hematocrit 34.2 % (40-54); Hemoglobin 10.6 g/dL (13.0-16.5); Mean Corpuscular Hgb 29.8 pg (27.0-32.0); Mean Corpuscular Volume 96.1 fL (80-94); Mean Platelet Vol. 9.5 fl (6.2-12.0); Platelet Count 279 K/mm3 (150-450); RBC Distribution Width CV 17.2 % (11.6-14.6); RBC Distribution Width SD 60.9 fl (35.1-43.9); Red Blood Count 3.56 M/mm3 (4.6-6.2)
[2020-12-08 12:27] LABS: Anion Gap 8 (5-15); BUN 46 mg/dL (7-18); BUN/Creat Ratio 18.9 RATIO (10-20); Calcium,Total 9.1 mg/dL (8.5-10.1); Chloride 98 mmol/L (98-107); Creatinine, Serum 2.43 mg/dL (0.70-1.30); EST Glomerular Filtration Rate 28 mL/min (>60); Est Glom Filt Rate - Afr Amer 34 mL/min (>60); Glucose 101 mg/dL (74-106); Potassium 4.2 mmol/L (3.5-5.1); Sodium Level 140 mmol/L (136-145)
[2020-12-14] VITALS (9 sets, daily range): BP systolic 85–151; BP diastolic 50–73; PULSE 51–68; RESP 12–16; TEMP 36–36.7; O2SAT 92–98; BMI 29.0
[2020-12-14] MEDS: 0.9% Normal Saline 1,000 ML 15 ML IV (08:17)
--- NOTE | 2020-12-14 09:04 | HP.PCM_ITS ---
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: No Is patient in pain?: No Allergies Penicillins Allergy (Severe, Verified 12/02/20 14:43) Rash, 105 temp amlodipine Allergy (Verified 12/02/20 14:43) itching and rash prednisone Allergy (Verified 12/02/20 14:43) Other aspirin Adverse Reaction (Mild, Verified 12/02/20 14:43) rash Medications allopurinol 100 mg tablet 100 mg PO BID 05/03/18 [History Confirmed 12/02/20] aspirin 81 mg chewable tablet 81 mg PO DAILY 05/03/18 [History Confirmed 12/02/20] magnesium oxide 400 mg PO BID cap 05/03/18 [History Confirmed 12/02/20] nitroglycerin 0.4 mg sublingual tablet 0.4 mg SUBLINGUAL Q5-15M PRN 05/03/18 [History Confirmed 12/02/20] omeprazole 20 mg tablet,delayed release 20 mg PO DAILY PRN PRN 01/01/19 [History Confirmed 12/02/20] multivitamin 1 ea PO DAILY 11/14/19 [History Confirmed 12/02/20] glycopyrrolate-formoterol [Bevespi Aerosphere] 2 puff INHALATION BID 08/25/20 [History Confirmed 12/02/20] vit C-s.slerrh-myztsp-lhsgz sd [Tart Bernstein] 1 cap PO DAILY 08/25/20 [History Confirmed 12/02/20] furosemide 20 mg tablet 80 mg PO QHS tab 09/23/20 [History Confirmed 12/02/20] ferrous sulfate 325 mg (65 mg iron) tablet 325 mg PO BID 11/09/20 [History Confirmed 12/02/20] sertraline 50 mg tablet 50 mg PO DAILY 11/09/20 [History Confirmed 12/02/20] sodium zirconium cyclosilicate 10 gram oral powder packet 10 g PO .every other day ea 11/09/20 [History Confirmed 12/02/20] fluticasone propionate 50 mcg/actuation nasal spray,suspension 2 spray INTRANASAL DAILY #16 g 11/11/20 [Rx Confirmed 12/02/20] amiodarone 200 mg tablet 200 mg PO DAILY 11/19/20 [History Confirmed 12/02/20] apixaban 5 mg tablet 5 mg PO BID tab 11/19/20 [History Confirmed 12/02/20] rosuvastatin 10 mg tablet 10 mg PO QHS 11/19/20 [History Confirmed 12/02/20] sacubitril 24 mg-valsartan 26 mg tablet 1 tab PO BID 11/19/20 [History Confirmed 12/02/20] albuterol sulfate 2.5 mg INHALATION PRN PRN 11/23/20 [History Confirmed 12/02/20] ascorbic acid (vitamin C) [Vitamin C] 500 mg PO DAILY 11/23/20 [History Confirmed 12/02/20] guaifenesin [Mucinex] 600 mg PO BID 11/23/20 [History Confirmed 12/02/20] metoprolol succinate 25 mg PO BID 11/23/20 [History Confirmed 12/02/20] [facility] Medical History Abnormal chest CT Ambulates with cane Anemia Anemia Anxiety Arthritis Back pain BPH (benign prostatic hyperplasia) Cardiology follow-up encounter Chest pain Chronic kidney disease, stage 3 Congestive heart failure (CHF) COPD (chronic obstructive pulmonary disease) COPD (chronic obstructive pulmonary disease) Coronary artery disease involving coronary bypass graft Coronary atherosclerosis of [place] coronary artery CPAP (continuous positive airway pressure) dependence CPAP (continuous positive airway pressure) dependence Depression Dietary restriction Emphysema, unspecified Erectile dysfunction Former smoker Former smoker GERD (gastroesophageal reflux disease) Gout Gout High cholesterol History of atrial fibrillation History of echocardiogram History of edema History of heart attack History of renal disease HLD (hyperlipidemia) HTN (hypertension) Hypertension Lumbar disc disease with radiculopathy Lumbosacral stenosis Myocardial infarct Obesity On home oxygen therapy MARCELO (obstructive sleep apnea) Psychosexual dysfunction with inhibited sexual excitement Shortness of breath on exertion Sleep apnea Wears dentures Wears glasses Surgical History H/O left cataract extraction History of cardiac catheterization History of colonoscopy History of coronary artery stent placement History of heart artery stent History of heart surgery History of knee replacement procedure of left knee History of open heart surgery (~08/2020) History of total right knee replacement Family History Mother , 84 y.o. Hypertension CVA (cerebral vascular accident) Father , 70 y.o. Heart disease Hodgkin disease Sister , 72 y.o. Heart disease Social History household members: spouse housing: house pets and animals: No Smoking Status: Former smoker second hand exposure: No alcohol intake: current alcohol intake frequency: holidays/special occasions only HPI HPI HPI: ANGIE SINGH, is a 75 M who presents to the office today for ongoing surgical consultation regarding creation of arteriovenous fistula. On November 25 I attempted to create a left forearm radiocephalic AV fistula. Despite vigorous attempts I was unable to achieve this due to the diminutive size of the fistula. Upon inspection he appears to have basilic vein output at the antecubital space. He might be a candidate for a left forearm loop AV graft. I believe that his [place] anatomy is quite diminutive. My previous notes reflect the following Allergies Penicillins Allergy (Severe, Verified 11/19/20 07:52) Rash, 105 temp amlodipine Allergy (Verified 11/19/20 07:52) itching and rash aspirin Adverse Reaction (Mild, Verified 11/19/20 07:52) rash Medications allopurinol 100 mg tablet 100 mg PO BID 05/03/18 [History Confirmed 11/19/20] aspirin 81 mg chewable tablet 81 mg PO DAILY 05/03/18 [History Confirmed 11/19/20] magnesium oxide 400 mg PO BID cap 05/03/18 [History Confirmed 11/19/20] nitroglycerin 0.4 mg sublingual tablet 0.4 mg SUBLINGUAL Q5-15M PRN 05/03/18 [History Confirmed 11/19/20] omeprazole 20 mg tablet,delayed release 20 mg PO DAILY PRN PRN 01/01/19 [History Confirmed 11/19/20] Carvedilol 25 mg PO BID 11/14/19 [History Confirmed 11/09/20] multivitamin 1 ea PO DAILY 11/14/19 [History Confirmed 11/19/20] glycopyrrolate-formoterol [Bevespi Aerosphere] 2 puff INHALATION BID 08/25/20 [History Confirmed 11/19/20] vit C-s.nucrgr-cguemx-wmnyn sd [Tart Bernstein] 1 cap PO DAILY 08/25/20 [History Confirmed 11/19/20] furosemide 20 mg tablet 40 mg PO QHS tab 09/23/20 [History Confirmed 11/19/20] ferrous sulfate 325 mg (65 mg iron) tablet 325 mg PO BID 11/09/20 [History Confirmed 11/19/20] sertraline 50 mg tablet 50 mg PO DAILY 11/09/20 [History Confirmed 11/19/20] sodium zirconium cyclosilicate 10 gram oral powder packet 10 g PO .every other day ea 11/09/20 [History Confirmed 11/19/20] fluticasone propionate 50 mcg/actuation nasal spray,suspension 2 spray INTRANASAL DAILY #16 g 11/11/20 [Rx Confirmed 11/19/20] amiodarone 200 mg tablet mg PO 11/19/20 [History Confirmed 11/19/20] apixaban 5 mg tablet 5 mg PO BID tab 11/19/20 [History Confirmed 11/19/20] rosuvastatin 10 mg tablet mg PO 11/19/20 [History Confirmed 11/19/20] sacubitril 24 mg-valsartan 26 mg tablet 1 tab PO BID 11/19/20 [History Confirmed 11/19/20] PFS Medical History (Updated 11/19/20 @ 08:[address] Donaldo Tucker MD) Abnormal chest CT Anemia BPH (benign prostatic hyperplasia) Chest pain Chronic kidney disease, stage 3 Congestive heart failure (CHF) COPD (chronic obstructive pulmonary disease) Coronary artery disease involving coronary bypass graft Coronary atherosclerosis of [place] coronary artery CPAP (continuous positive airway pressure) dependence Erectile dysfunction Former smoker GERD (gastroesophageal reflux disease) Gout HLD (hyperlipidemia) HTN (hypertension) Lumbar disc disease with radiculopathy Lumbosacral stenosis Myocardial infarct Obesity MARCELO (obstructive sleep apnea) Psychosexual dysfunction with inhibited sexual excitement Surgical History (Updated 11/19/20 @ 07:51 by Isatu Correa) H/O left cataract extraction History of colonoscopy History of heart artery stent History of knee replacement procedure of left knee History of open heart surgery (~08/2020) History of total right knee replacement Family History Mother , 84 y.o. Hypertension CVA (cerebral vascular accident) Father , 70 y.o. Heart disease Hodgkin disease Sister , 72 y.o. Heart disease Social History household members: spouse housing: house pets and animals: No Smoking Status: Former smoker second hand exposure: No alcohol intake: current alcohol intake frequency: holidays/special occasions only HPI HPI HPI: ANGIE SINGH, is a 75 M who presents to the office today for surgical consultation regarding creation of arteriovenous hemodialysis fistula. The patient is referred by with a diagnosis of stage V chronic renal insufficiency. Written copy of my surgical consult and recommendations will return to him. At the [facility] on November 12, 2020 the patient had a ultrasound-guided left chest thoracentesis of 1100 cc of fluid. He feels much better. He is breathing better. He had this pleural fluid problem that predated his coronary bypass surgery. He is right arm dominant. He has not had any hemodialysis catheters placed. October 06, 2020 Reason For Study: CKD4 Right Arm Left Arm Right cephalic vein is compressible. Left cephalic vein is compressible. Right Cephalic Vein at the shoulder Left Cephalic Vein at the shoulder measures .4 x .38 cm. measures .39 x .35 cm. Right Cephalic Vein mid bicep measures .44 Left Cephalic Vein at mid bicep measures .35 x .47 cm. x .35 cm. Right Cephalic Vein above antecub Left Cephalic Vein above antecub measures .34 measures .46 x .48 cm. x .39 cm. Right Cephalic Vein below antecub measures .2 Left Cephalic Vein b elow antecub measures .36 x .25 cm. x .37 cm. Right Cephalic Vein in the forearm Left Cephalic Vein in the forearm measures .24 x .26 cm. measures .25 x .24 cm. Right Cephalic Vein at the wrist measures .13 Left Cephalic Vein at the wrist measures .2 x .15 cm. x .23 cm. Right basilic vein is compressible. Left basilic vein is compressible. Right Basilic Vein mid bicep measures .21 Basilic vein at bicep measures .39 x .37 cm. x .24 cm. Basilic vein above antecub measures .36 x .35 Right Basilic Vein above antecub measures .25 cm. x .25 cm. Basilic vein below antecub measures .16 x .18 Right Basilic Vein below antecub measures .13 cm. x .16 cm. Basilic vein in the forearm measures .15 Right Basilic Vein in the forearm x .17 cm. measures .14 x .18 cm. Basilic vein at the wrist measures .13 x .17 Right Basilic Vein at the wrist measures .16 cm. x .19 cm. Brachial art .44 x .47 cm. Brachial art .46 x .46 cm. Brachial art 73.5 cm/s. Brachial art 91.5 cm/s. Radial art .32 x .3 cm. Radial art .21 x .24 cm. Radial art 84.2 cm/s. Radial art 97.0 cm/s. VL/Saphenous Vein Mapping, Bilat Interpretation Summary Patent and compressible bilateral upper extremity cephalic and basilic veins with dimensions as noted. Right forearm cephalic vein smaller in diameter. Right upper arm basilic vein relatively small Bilateral brachial and radial arteries patent with normal flow Ordering Physician: Ramesh Victor Performed By: Poncho Hussein RVT and Student ? 10/06/20 [id number] Donaldo Tucker MD ROS General General: Yes weight change and fatigue; No appetite, colon cancer, breast cancer or weakness HEENT HEENT: Yes eye surgery; No difficulty swallowing, eye injury, swollen glands or hoarseness Endo Endocrine: No thyroid disease, diabetes mellitus, thyroid cancer, Hair loss, heat intolerance or cold intolerance Musc Musculoskeletal: Yes back problems, arthritis and gout; No rheumatoid arthritis or joint pain Cardio Cardiovascular: Yes heart disease, atrial fibrillation, high blood pressure, heart attack and heart stent; No murmur, pacemaker, palpitations, shortness of breat with exertion or chest pain Psych Psychiatric: Yes depression; No anxiety or hearing voices Resp Respiratory: Yes shortness of breath, Yes sleep apnea, No cough, Yes COPD, No asthma, No emphysema and No wheezing Gastro Gastrointestinal: No abdominal pain, No nausea or vomiting, No diarrhea, No constipation, No blood in stool, No acid reflux, No hemorrhoids, No ulcers, No gallbladder problem and No black,tarry stools Roger Hematologic: Yes blood thinners, No blood disorders, No bleeding, Yes anemia and No blood clots Neuro Neurologic: No weakness Exam Const General: cooperative, comfortable and no acute distress Nutritional Appearance: overweight HENMT Head: normal to inspection Neck Carotids: normal carotid upstroke and no bruits Other: Kyphotic Chest Other: Increased anterior posterior diameter. Kyphosis Resp Other: Slight Drive bibasilar rale. Adequate respiratory excursion GI Palpation: soft and no hepatosplenomegaly Skin Other: Scattered areas of ecchymosis bilateral upper and lower extremities Neuro Cognition: normal cognition Gait: normal gait Extrem General: no calf tenderness bilaterally Other: 2+ bilateral extremity edema Psych Affect: normal affect COVID (Procedure Consent) Procedure Criteria Procedure Criteria: Yes Elective The surgeon/proceduralist and patient have discussed in detail the risk of exposure to and/or potential harm posed by the COVID-19 virus with having a surgery/procedure at this time versus the risk of delaying the surgery/procedure. It is not possible to know either the risk of delaying the surgery or procedure or chance of getting an infection with perfect accuracy, but a joint decision was made between the patient and the surgeon /proceduralist to proceed at this time with the scheduled surgery/procedure as indicated on the consent form. Assessment and Plan Assessment and Plan (1) Chronic renal failure, stage 4 (severe): Status: Chronic Plan - Dr. Donaldo Tucker MD: Pleasant 75-year-old gentleman. He has ongoing cardiac and pleural effusion problems. He is on chronic Eliquis therapy. That is for atrial fibrillation. He had carotid bypass grafting August 2020. He has need of an arteriovenous fistula creation for hemodialysis. He is right arm dominant. I visually inspected his left extremity with ultrasound. The left forearm cephalic vein is patent although somewhat borderline in dimension. It is closer to the surface certainly than the upper arm vein. He is on chronic anticoagulation. He is fairly recent out from his coronary bypass surgery. He is having recurrent problems with current pleural effusion. With all of that in mind I believe that a more simplified left forearm radiocephalic arteriovenous hemodialysis fistula creation would be pertinent. I have described him technique, benefit, risk, alternatives. We will have him hold his Eliquis when day preoperatively. He has had an opportunity to ask and have questions answered. He is aware that there are no guarantees of success. I very much appreciate the kind opportunity of assisting with the surgical care. Copy: Dr. Zack Stacy and Dr.Bucktowarsing Donaldo Tucker M.D., F.A.C.S. Exam Extrem Other: Left upper extremity demonstrates healing incisions of the forearm. He does have numbness on the dorsum of his hand consistent with the surgical findings. He has good motor control. Assessment and Plan Assessment and Plan (1) Chronic renal failure, stage 4 (severe): Status: Chronic Plan Details Additional Comments: Failed left forearm radial cephalic AV fistula creation secondary to diminutive vein. On today's visit the patient was very understanding of the difficulties. I carefully inspected his left upper extremity. He has a upper arm cephalic and basilic vein. At the antecubital space they meet but only for a fairly short distance and there is additional branch that dives deeper into the arm part of the deep system. Brachial artery is in the same vicinity. I recommend to him placement of a loop forearm AV graft. It is not clear to me where the anastomosis will be able to be placed at the antecubital vein utilizing both the cephalic and basilic veins as outflow. If not I will have to choose 1 as the major outflow component. He is aware of technique, benefit, risk of alternatives. I am hesitant to utilize the upper arm veins as a direct fistula at this point due to the difficulties that I encountered with the forearm in cephalic vein more distally. He is aware that the graft may facilitate maturation of the upper arm veins and might facilitate if need be of future fistula in that site. He has had an opportunity to ask and have questions answered. He is desiring and wishes to schedule and proceed as noted. Donaldo Tucker M.D., F.A.C.S. I have re-examined the patient. There are no clinical changes since date of exam.
--- NOTE | 2020-12-14 09:05 | EX.PCM.DISCH ---
Discharge Instructions Procedure [facility] Diet Discharge Diet: Renal Diet Activity Discharge Activity: May Not Drive (for 2-3 days or while taking narcotic pain medications.), May Shower and May Take a Tub Bath (in 5 days.) Lifting Restrictions: 5 pounds Keep extremity elevated above heart level: - (Keep arm elevated above the heart level for 3 days.) Dressing / Incision Call your doctor if your incision/area has: Continuous Slow Oozing, Sudden Increased Bleeding (apply pressure and call your doctor.), Increased Pain/ Swelling, Increased Redness and Foul Smelling Discharge Call your doctor if you observe: Fever of 101 or Higher Suture Line Care: Avoid Pulling/Pushing and Avoid Pinching/Bending Cleanse incision/area with: Keep Dressing Clean & Dry Additional Dressing/Incision Instructions:: Change or remove dressing in one day. May protect with a gauze bandaid. Follow Up Care Please Follow Up With: Donaldo Tucker MD When: Call [phone] to make an appointment for suture removal and follow up in 1 week. Test Results: Please schedule office appointment next Monday for wound inspection and suture removal. You may remove the elastic brown wrap on Monday. You may change your incisional dressings and reapply nonstick Telfa and tape. Discharge Plan Admission Attending Provider: Donaldo Tucker Primary Care Provider: Zack Stacy Discharge Orders/Prescriptions Prescriptions: No Action allopurinol 100 mg tablet 100 mg PO BID RF: 0 aspirin 81 mg tablet,chewable 81 mg PO DAILY RF: 0 magnesium oxide 400 mg capsule 400 mg PO BID RF: 0 nitroglycerin 0.4 mg tablet, sublingual 0.4 mg SUBLINGUAL Q5-15M PRN (Reason: chest pain) RF: 0 omeprazole 20 mg tablet,delayed release (DR/EC) 20 mg PO DAILY PRN PRN (Reason: Indigestion) RF: 0 amiodarone 200 mg tablet 200 mg PO DAILY RF: 0 rosuvastatin [Crestor] 10 mg tablet 10 mg PO QHS RF: 0 apixaban 5 mg tablet 5 mg PO BID RF: 0 Entresto 24-26 mg tablet 1 tab PO BID RF: 0 sertraline 50 mg tablet 50 mg PO DAILY RF: 0 ferrous sulfate [iron] 325 mg (65 mg iron) tablet 325 mg PO BID RF: 0 Lokelma 10 gram powder in packet 10 g PO .every other day RF: 0 multivitamin 1 EACH tablet 1 ea PO DAILY RF: 0 Tart Bernstein 12-650-99-75-20 mg Capsule 1 cap PO DAILY RF: 0 Bevespi Aerosphere 9-4.8 mcg HFA aerosol inhaler 2 puff INHALATION BID PRN (Reason: SOB) RF: 0 albuterol sulfate 2.5 mg /3 mL (0.083 %) solution for nebulization 2.5 mg inhalation PRN PRN (Reason: COPD) RF: 0 ascorbic acid (vitamin C) [Vitamin C] 500 mg Capsule, Extended Release 500 mg PO DAILY RF: 0 metoprolol succinate 25 mg tablet extended release 24 hr 25 mg PO BID RF: 0 guaifenesin [Mucinex] 600 mg Tablet Extended Release 12hr 600 mg PO BID RF: 0 furosemide [Lasix] 80 mg tablet 80 mg PO BID Qty: 14 RF: 0 fluticasone propionate 50 mcg/actuation spray,suspension 2 spray INTRANASAL DAILY Qty: 16 RF: 3
[2020-12-14] MEDS: Lidocaine 1% (30 ml sdv) 30 ML Vial (09:40)
[2020-12-14] MEDS: Bupivacaine Mpf 0.5% 30 ML VIAL (09:40)
[2020-12-14] MEDS: Heparin Injection (Vial) 5,000 UNIT/ML VIAL 5000 UNIT (10:15)
--- NOTE | 2020-12-14 11:28 | OP.PCM_ITS ---
Problems Associated Problem List Diagnoses (1) Stage 4 chronic kidney disease: Report of Operation Date of Procedure: 12/14/20 Pre-Operative Diagnosis: Stage IV chronic renal insufficiency Post-Operative Diagnosis: Same Surgery/Procedure Performed:: Left forearm brachial to antecubital 4 to 7 mm tapered standard wall central Yousif reinforced [place] PTFE arteriovenous hemodialysis fistula graft placement Reference [id number]; 4 to 7 mm tapered 45 cm graft with 10 cm central removable reinforced rings Serial #[id number] Date of expiration 05/27/2025 Reference Description of Surgical Findings:: Timeout and informed consent was obtained. 75-year-old gent was taken down from placement table underwent monitored anesthesia care. Clindamycin 900 g were given intravenously. The left upper extremity was sterilely prepped and draped. I performed ultrasound inspection identifying the antecubital vein immediately branching into the cephalic and basilic veins. 1% lidocaine mixed 50-50 with 0.5% Marcaine was used as a local anesthetic. Throughout the procedure total 36 cc was used. Local was instilled transversely at the antecubital space just distal to the antecubital crease. Sharp dissection carried down through the subtenons tissue. The antecubital vein branching into the cephalic and basilic and deep vein was identified. Sequential control were obtained. Then more medially sharp and blunt dissection was used to identify the brachial artery and cervical control control was obtained with a vessel loop. I measured out the distance and then added more local and at the apex of the volar forearm created a counterincision. I then used a curved tunneler to tunnel the 4 to 7 mm graft. I did remove approximately one third of the reinforcing rings. Appear to have a good positional lie. Unfortunate because of the length of my loop I did have to remove most of the 4 mm stapled area. The patient received 8000 Ancef heparin intravenously. Peripheral vascular clamps were placed on the brachial artery and 11 blade used to make an arteriotomy which was extended with Rebolledo scissors. A end-to-side graft to arterial anastomosis was present with a running CV 7 [place] suture. At the completion there appeared to be good positional lie. The graft was copious flushed with heparinized saline. It was measured to length transected and then peripheral vascular clamps were placed on the antecubital vein basilic and cephalic veins. A 11 blade was used to make an arteriotomy which was extended with Rebolledo scissors. This was just at the bifurcation. A end to side graft to venous anastomosis created with a CV 7 [place] suture. At the completion a single repair suture of [place]-Andrea was required. Topical Surgicel was used to assist with hemostasis and the patient received 30 mg of protamine as reversal. There appeared to be excellent positional lie and excellent flow through the graft. Each wound was closed with deep layer of interrupted 3-0 Vicryl and then simple sutures of 4-0 nylon. Telfa and tape dressings applied followed by soft roll and Ralph wrap. Sponge and instrument and needle counts were reported to certainly be correct. Blood loss was approximately 150 cc. Specimens none. Drains none. Patient had a viable hand to completion no apparent complication he was taken to the recovery area in satisfactory condition. Specimens none. Drains none. Blood loss 150 cc. Donaldo Tucker M.D., F.A.C.S. Surgeon: Donaldo Tucker
--- NOTE | 2020-12-14 11:51 | SUR.PHASEI ---
BRUIT AUSCULTATED IN LEFT FOREARM FISTULA.
--- NOTE | 2020-12-14 14:45 | SUR.PHASEII ---
Dr. Tucker's office has not called back. RN called again and spoke with Lien. DC order received.
== END 2020-12-14 15:00 | disposition home or self-care (01) ==
LOC: SDC 07:30 → AC 07:31
PROVIDERS: PCP Family Medicine; Referring Provider Surgery; Visit Provider Surgery
PROC: (CPT 36830; principal; 2020-12-14 09:30)
DX: I13.0 Hypertensive heart and chronic kidney disease with heart failure and stage 1 through stage 4 chronic kidney disease, or unspecified chronic kidney disease (principal); N18.4 Chronic kidney disease, stage 4 (severe); I50.9 Heart failure, unspecified; F41.9 Anxiety disorder, unspecified; J44.9 Chronic obstructive pulmonary disease, unspecified; I25.10 Atherosclerotic heart disease of native coronary artery without angina pectoris; F32.9 Major depressive disorder, single episode, unspecified; K21.9 Gastro-esophageal reflux disease without esophagitis; D64.9 Anemia, unspecified; M10.9 Gout, unspecified; E78.00 Pure hypercholesterolemia, unspecified; I25.2 Old myocardial infarction; N40.0 Benign prostatic hyperplasia without lower urinary tract symptoms; I48.91 Unspecified atrial fibrillation; G47.33 Obstructive sleep apnea (adult) (pediatric); M48.061 Spinal stenosis, lumbar region without neurogenic claudication; M19.90 Unspecified osteoarthritis, unspecified site; Z95.1 Presence of aortocoronary bypass graft; Z99.81 Dependence on supplemental oxygen; Z79.01 Long term (current) use of anticoagulants; Z79.82 Long term (current) use of aspirin; Z87.891 Personal history of nicotine dependence
CPT/HCPCS: 01844; 36830; 36415; 80048; 85027; J7030; J2405

== ENCOUNTER → 2020-12-25 08:23 | Outpatient (CLI) | payer MEDICARE, OTHER, SELFPAY ==
--- NOTE | 2020-12-25 08:36 | US_ITS ---
PROCEDURE: ULTRASOUND GUIDED THORACENTESIS. DATE: 12/25/2020. INDICATION: Male, 75 years old. Right pleural effusion. PHYSICIAN: Parminder Benton M.D. PROCEDURE: The risks, benefits, and alternatives to the procedure were explained to the patient. The specific risks of bleeding, infection, and pneumothorax requiring chest tube insertion were discussed and accepted. Written informed consent was obtained. Ultrasonographic evaluation of the right lower pleural space was carried out. An adequate pocket was identified. The patient was placed in the sitting, upright position. The overlying skin was prepped and draped in sterile fashion. 1% lidocaine was administered subcutaneously for local anesthesia. Under ultrasound guidance, a 5 [place]ian thoracentesis needle/catheter system was advanced into the right posterior lower pleural fluid collection. Approximately 550 mL of myra-colored fluid fluid was drained. The catheter was removed, and a sterile dressing was applied. A specimen was collected and sent to the laboratory for analysis, as requested by the referring clinician. The patient tolerated the procedure well. A chest x-ray was ordered. US/Thoracentesis W US IMPRESSION: Ultrasound-guided right thoracentesis. Electronically Signed: Parminder Benton MD at 9:59 EDT , Service support ,
[2020-12-25 09:05] VITALS: BP 134/64; BP 145/63; BP 146/67; PULSE 78; PULSE 80; PULSE 81; RESP 16; TEMP 36.8; O2SAT 92; O2SAT 93; O2SAT 94
--- NOTE | 2020-12-25 09:15 | RAD_ITS ---
STUDY: X-RAY CHEST REASON FOR EXAM: Male, 75 years old. Pneumothorax immediately post thoracentesis TECHNIQUE: AP inspiration and expiration views. COMPARISON: Comparison is made with prior study of 12/04/2020. FINDINGS: The patient is status post right thoracentesis. There is no evidence of pneumothorax. RAD/Chest Insp/Exp 2 View IMPRESSION: No evidence of pneumothorax on the immediate post right thoracentesis. Electronically Signed: Parminder Benton MD at 9:45 EDT , Service support ,
[2020-12-25] MEDS: Lidocaine 2% (20 ml mdv) 20 ML Vial INFILT (09:58)
== END | disposition home or self-care (01) ==
PROVIDERS: PCP Family Medicine; Referring Provider Nurse Practitioner Acute Care; Visit Provider Nurse Practitioner Acute Care
DX: J90 Pleural effusion, not elsewhere classified (principal)
CPT/HCPCS: 32555; 71046

== ENCOUNTER → 2021-01-01 16:07 | Outpatient (CLI) | payer MEDICARE, OTHER, SELFPAY ==
--- NOTE | 2021-01-01 16:09 | RAD_ITS ---
STUDY: X-RAY CHEST REASON FOR EXAM: Male, 75 years old. Pleural effusion TECHNIQUE: PA and lateral views of the chest. COMPARISON: 12/25/2020 FINDINGS: Small bilateral pleural effusions have increased in volume since the prior study. No dense airspace consolidation. There is mild cardiac enlargement. Sternal wires and mediastinal surgical clips compatible with prior CABG. There is prominence of the pulmonary hilar arteries and peripheral pulmonary arteries, consistent with congestive heart failure (CHF). There is atherosclerotic calcification of the aortic arch with tortuosity. There are diffuse degenerative changes of the visualized thoracic spine. Normal visualized ribs, clavicles, and shoulders. There is no demonstrated abnormality of the visualized soft tissue structures of the upper abdomen. RAD/Chest PA and Lateral IMPRESSION: 1. Unfavorable change. Worsening CHF/vascular congestion with mildly increased pleural effusions. Electronically Signed: John Diop MD ([place]) at 20:07 EDT , Service support ,
== END ==
PROVIDERS: PCP Family Medicine; Referring Provider Internal Medicine Critical Care Medicine; Visit Provider Internal Medicine Critical Care Medicine
DX: J90 Pleural effusion, not elsewhere classified (principal); N18.4 Chronic kidney disease, stage 4 (severe)
CPT/HCPCS: 71046

== ENCOUNTER → 2021-01-05 12:12 | Outpatient (CLI) | payer MEDICARE, OTHER, SELFPAY ==
--- NOTE | 2021-01-05 12:16 | US_ITS ---
PROCEDURE: ULTRASOUND GUIDED THORACENTESIS. DATE: 01/05/2021.. INDICATION: Male, 75 years old. Right pleural effusion. PHYSICIAN: Parminder Benton M.D. PROCEDURE: The risks, benefits, and alternatives to the procedure were explained to the patient. The specific risks of bleeding, infection, and pneumothorax requiring chest tube insertion were discussed and accepted. Written informed consent was obtained. Ultrasonographic evaluation of the right lower pleural space was carried out. An adequate pocket was identified. The patient was placed in the sitting, upright position. The overlying skin was prepped and draped in sterile fashion. 1% lidocaine was administered subcutaneously for local anesthesia. Under ultrasound guidance, a 5 Danish thoracentesis needle/catheter system was advanced into the right posterior lower pleural fluid collection. Approximately 1450 mL of myra-colored fluid was drained. The catheter was removed, and a sterile dressing was applied. The patient tolerated the procedure well. A chest x-ray was ordered. US/Thoracentesis W US IMPRESSION: Ultrasound-guided right thoracentesis. Electronically Signed: Parminder Benton MD at 13:16 EDT , Service support ,
[2021-01-05 12:25] VITALS: BP 120/59; BP 136/86; BP 144/70; PULSE 75; PULSE 79; PULSE 80; RESP 16; RESP 18; TEMP 36.8; O2SAT 90; O2SAT 91; O2SAT 95
[2021-01-05] MEDS: Lidocaine 2% (20 ml mdv) 20 ML Vial INFILT (12:30)
--- NOTE | 2021-01-05 12:45 | RAD_ITS ---
STUDY: X-RAY CHEST REASON FOR EXAM: Male, 75 years old. PNEUMOTHORAX TECHNIQUE: AP inspiration and expiration views. COMPARISON: Comparison is made with prior examination 01/01/2021. FINDINGS: The patient is status post right thoracentesis. There is no evidence of pneumothorax. Persistent pleural-parenchymal changes at the left lung base. RAD/Chest Insp/Exp 2 View IMPRESSION: Status post right thoracentesis. There is no evidence of pneumothorax. Electronically Signed: Parminder Benton MD at 13:34 EDT , Service support ,
== END ==
PROVIDERS: PCP Family Medicine
DX: J90 Pleural effusion, not elsewhere classified (principal)
CPT/HCPCS: 32555; 71046

== ENCOUNTER → 2021-01-11 09:53 | Outpatient (CLI) | payer MEDICARE, OTHER, SELFPAY ==
--- NOTE | 2021-01-11 09:56 | US_ITS ---
PROCEDURE: ULTRASOUND GUIDED THORACENTESIS. DATE: 01/11/2021. INDICATION: Male, 75 years old. Left pleural effusion PHYSICIAN: Parminder Benton M.D. PROCEDURE: The risks, benefits, and alternatives to the procedure were explained to the patient. The specific risks of bleeding, infection, and pneumothorax requiring chest tube insertion were discussed and accepted. Written informed consent was obtained. Ultrasonographic evaluation of the left lower pleural space was carried out. An adequate pocket was identified. The patient was placed in the sitting, upright position. The overlying skin was prepped and draped in sterile fashion. 1% lidocaine was administered subcutaneously for local anesthesia. Under ultrasound guidance, a 5 Sami thoracentesis needle/catheter system was advanced into the left posterior lower pleural fluid collection. Approximately 1250 mL of myra-colored fluid was drained. The catheter was removed, and a sterile dressing was applied. The patient tolerated the procedure well. A chest x-ray was ordered. US/Thoracentesis W US IMPRESSION: Ultrasound-guided left thoracentesis. Electronically Signed: Parminder Benton MD at 10:46 EDT , Service support ,
[2021-01-11 10:17] VITALS: BP 118/45; BP 120/82; BP 130/73; PULSE 71; PULSE 74; RESP 18; RESP 20; O2SAT 92; O2SAT 97; O2SAT 98
--- NOTE | 2021-01-11 10:30 | RAD_ITS ---
STUDY: X-RAY CHEST REASON FOR EXAM: Male, 75 years old. Post thora TECHNIQUE: AP inspiration and expiration views. COMPARISON: Comparison is made with prior study dated 01/05/2021. FINDINGS: The patient is status post left thoracentesis. No evidence of pneumothorax. There is blunting and atelectasis at the right lung base. RAD/Chest Insp/Exp 2 View IMPRESSION: Status post left thoracentesis. There is no evidence of pneumothorax. Electronically Signed: Parminder Benton MD at 11:01 EDT , Service support ,
== END ==
PROVIDERS: PCP Family Medicine; Referring Provider Nurse Practitioner Acute Care; Visit Provider Nurse Practitioner Acute Care
DX: J90 Pleural effusion, not elsewhere classified (principal)
CPT/HCPCS: 32555; 71046

== ENCOUNTER → 2021-01-26 13:47 | Outpatient (CLI) | payer MEDICARE, OTHER, SELFPAY ==
--- NOTE | 2021-01-26 13:49 | AVDS_ITS ---
Reason For Study: CKD LEFT Brachial art 210/96.4 cm/s Brachial art VolFlow 954.9 ml/min Prox Anast 446.2/208.2 cm/s Prox Anast VolFlow 2824 ml/min Prox Graft 190.6/96.5 cm/s Prox Graft VolFlow 1128 ml/min Mid Graft 112.5/55.9 cm/s Mid Graft VolFlow 726.5 ml/min Dist Graft 101.6/55.9 cm/s Dist Graft ImtQuce093.2 ml/min Dist Anast 638.2/313.8 cm/s Dist Anast VolFlow 3053 ml/min Outflow median cubital 244.5/131.3 cm/s Outflow median cubital VolFlow 1177 ml/min [place] Basilic V at mid bicep 157.1/89.2 cm/s Outflow Basilic V at mid bicep VolFlow 1250 ml/min [place] Cephalic V at mid bicep 33.6/16.0 cm/s Outflow Cephalic V at mid bicep VolFlow 136.9 ml/min. VL/AV Fistula/Dialysis Graft Scan Interpretation Summary Left brachial artery demonstrates a volume flow of 954 mm/min which suggests a high flow left upper extremity AV graft. The graft arterial anastomosis is widely patent. Volume flow within the proximal AV graft is 1128 mm/min Volume flow in the mid graft is 726 mm/min The distal graft to venous anastomosis is widely patent although there is turbu lence noted at that area. The outflow vein has a volume flow of 1177 mm/min The AV graft appears to have moderately high volume flow to support access and dialysis. Ordering Physician: Lien Vargas Performed By: Rafael Hussein, RVT
== END ==
PROVIDERS: PCP Family Medicine; Referring Provider Physician Assistant; Visit Provider Physician Assistant
DX: N18.4 Chronic kidney disease, stage 4 (severe) (principal); T82.590A Other mechanical complication of surgically created arteriovenous fistula, initial encounter
CPT/HCPCS: 93990

== ENCOUNTER 2021-07-02 10:25 | Inpatient (IN) | payer MEDICARE, OTHER, SELFPAY ==
[2021-07-02] VITALS (16 sets, daily range): BP systolic 96–123; BP diastolic 47–68; PULSE 82–102; RESP 16–22; TEMP 36.7–37.5; O2SAT 4–100; BMI 29.4; BMI 29.9
--- NOTE | 2021-07-02 10:34 | EKG12_ITS ---
Test Reason : SOB Blood Pressure : / mmHG Vent. Rate : 102 BPM Atrial Rate : 102 BPM P-R Int : 232 ms QRS Dur : 108 ms QT Int : 332 ms P-R-T Axes : 058 -61 000 degrees QTc Int : 432 ms Somatic/Motion Artifact Sinus tachycardia with 1st degree A-V block Left axis deviation Low voltage QRS Poor R wave progression Abnormal ECG Confirmed by JEREMIAS GONZALEZ, MAGGIE ([id number]), graphic editor LEONOR WALTER ([id number]) on 07/06/2021 8:54:44 AM Referred By: Confirmed By:MAGGIE MCDOWELL MD
--- NOTE | 2021-07-02 10:35 | ED.VIS.DYS ---
HPI History of Present Illness Chief Complaint: Shortness of Breath Detail of Chief Complaint: Shortness of breath that got worse last evening Informant: patient and family Onset/Context/Timing Onset: Yesterday Context: gradual and rest Timing: Continuous Quality: Positive for Dyspnea on exertion, Orthopnea (Stable two-pillow orthopnea) and PND; Negative for Wheezing Current Severity: Moderate Maximum Severity: Severe Worsened by: Exertion and Coughing Relieved by: Nothing Associated Symptoms cough and rhinorrhea; Negative for post nasal drip, ear pain, fever, sore throat, subjective, chills or sweats Chest Pain: Positive for None Narrative Narrative: Patient is a 75-year-old male with multiple medical problems which include hemodialysis Monday, Monday and Monday, COPD stage III, coronary disease and CHF requiring intermittent drainage of pleural fluid. Patient states he is no more swollen than normal. Family member states he normally appears pale. He states he was told he had a temperature when seen at [facility] and sent here by private vehicle. He believes his coughing is due to his COPD. He has been using his inhaler more frequently with little effect. Patient states the rhinorrhea is chronic. He denies headache, visual, ocular auditory symptoms. He denies chest pain. He does report report dyspnea and dyspnea on exertion. He is on oxygen during the day at 3 L. Patient denies black or maroon-colored stool. He states he does make urine. He is made less urine than normal recently. Discharge. He denies history of PE or DVT. He denies leg pain or discoloration. Patient's PE Risk Factors: Negative for Cancer, OCP + Smoking + > 35, Prior DVT or PE, Recent immobilization, Recent surgery and Recent travel Prior similar symptoms: Yes (CHF, recurrent pleural effusion and COPD.) Recent Illness/Hospitalization: No (Bypass surgery at [facility] August 2020) [facility] Medical History Abnormal chest CT Ambulates with cane Anemia Anemia Anxiety Arthritis Back pain BPH (benign prostatic hyperplasia) Cardiology follow-up encounter Chest pain Chronic kidney disease, stage 3 Congestive heart failure (CHF) COPD (chronic obstructive pulmonary disease) COPD (chronic obstructive pulmonary disease) Coronary artery disease involving coronary bypass graft Coronary atherosclerosis of [place] coronary artery CPAP (continuous positive airway pressure) dependence CPAP (continuous positive airway pressure) dependence Depression Dietary restriction Emphysema, unspecified Erectile dysfunction Former smoker Former smoker GERD (gastroesophageal reflux disease) Gout Gout High cholesterol History of atrial fibrillation History of echocardiogram History of edema History of heart attack History of renal disease HLD (hyperlipidemia) HTN (hypertension) Hypertension Lumbar disc disease with radiculopathy Lumbosacral stenosis Malfunction of arteriovenous dialysis fistula Myocardial infarct Obesity On home oxygen therapy MARCELO (obstructive sleep apnea) Psychosexual dysfunction with inhibited sexual excitement Shortness of breath on exertion Sleep apnea Wears dentures Wears glasses Home Medications allopurinol 100 mg tablet 100 mg PO DAILY 05/03/18 [History Last Taken 11/14/19] aspirin 81 mg chewable tablet 81 mg PO DAILY 05/03/18 [History Last Taken 11/14/19] magnesium oxide 400 mg PO BID cap 05/03/18 [History Last Taken 11/14/19] nitroglycerin 0.4 mg sublingual tablet 0.4 mg SUBLINGUAL Q5-15M PRN 05/03/18 [History Last Taken Unknown] omeprazole 20 mg tablet,delayed release 20 mg PO DAILY PRN PRN 01/01/19 [History Last Taken 12/14/20] multivitamin 1 ea PO DAILY 11/14/19 [History Last Taken 11/14/19] ferrous sulfate 325 mg (65 mg iron) tablet 325 mg PO BID 11/09/20 [History Last Taken Unknown] sertraline 50 mg tablet 50 mg PO DAILY 11/09/20 [History Last Taken Unknown] amiodarone 200 mg tablet 200 mg PO DAILY 11/19/20 [History Last Taken 12/14/20] apixaban 5 mg tablet 5 mg PO BID tab 11/19/20 [History Last Taken 11/22/20] rosuvastatin 10 mg tablet 10 mg PO QHS 11/19/20 [History Last Taken Unknown] albuterol sulfate 2.5 mg INHALATION PRN PRN 11/23/20 [History Last Taken Unknown] ascorbic acid (vitamin C) [Vitamin C] 500 mg PO DAILY 11/23/20 [History Last Taken Unknown] guaifenesin [Mucinex] 600 mg PO BID 11/23/20 [History Last Taken Unknown] metoprolol succinate 25 mg PO DAILY 11/23/20 [History Last Taken 12/14/20] furosemide 80 mg tablet 40 mg PO BID tab 12/21/20 [History Last Taken Unknown] fluticasone propionate 50 mcg/actuation nasal spray,suspension 2 spray INTRANASAL DAILY #16 g 04/06/21 [Rx Last Taken Unknown] glycopyrrolate 9 mcg-formoterol 4.8 mcg HFA aerosol inhaler 2 puff INHALATION BID PRN #10.7 g 04/06/21 [Rx Last Taken Unknown] sacubitril 24 mg-valsartan 26 mg tablet 1 tab PO DAILY tab 04/06/21 [History Last Taken Unknown] Allergy/AdvReac Type Severity Reaction Status Date / Time Penicillins Allergy Severe Rash, 105 Verified 04/06/21 09:57 temp amlodipine Allergy itching Verified 04/06/21 09:57 and rash prednisone Allergy Other Verified 04/06/21 09:57 aspirin AdvReac Mild rash Verified 04/06/21 09:57 Family History Mother , 84 y.o. Hypertension CVA (cerebral vascular accident) Father , 70 y.o. Heart disease Hodgkin disease Sister , 72 y.o. Heart disease Surgical History H/O left cataract extraction History of cardiac catheterization History of colonoscopy History of coronary artery stent placement History of heart artery stent History of heart surgery History of knee replacement procedure of left knee History of open heart surgery (~08/2020) History of total right knee replacement S/P arteriovenous (AV) fistula repair (~12/2020) Social History household members: spouse housing: house pets and animals: No Smoking Status: Former smoker second hand exposure: No alcohol intake: current alcohol intake frequency: holidays/special occasions only ROS ROS ED Constitutional Constitutional ED: Reports fever(s); Denies chills, sweats or weight loss Eyes Eyes: Denies blurry vision, change in vision or diplopia ENT ENT ED: Reports rhinorrhea; Denies ear pain or sore throat Cardiovascular Cardiovascular: Denies chest pain, orthopnea, palpitations, paroxysmal nocturnal dyspnea or racing heartbeat Respiratory/Chest Respiratory/Chest: Reports cough, dyspnea and dyspnea on exertion; Denies orthopnea, paroxysmal nocturnal dyspnea or sputum Gastrointestinal Gastrointestinal: Denies abdominal pain, constipation, diarrhea, melena, nausea or vomiting Genitourinary Genitourinary ED: Denies dysuria, hematuria or urinary frequency Musculoskeletal Musculoskeletal: Denies arthralgias, back pain, myalgias or neck pain Integumentary Denies rash Neurologic Neurologic: Reports weakness; Denies headache(s) or paresthesias Endocrine Endocrinology: Denies polydipsia, polyphagia or polyuria Hematologic/Lymphatic Hematologic/Lymphatic: Reports anemia; Denies easy bleeding, easy bruising or lymphadenopathy EXAM Physical Exam Const Vital Signs: 07/02/21 10:29 07/02/21 10:47 07/02/21 10:51 Temperature 99.2 F H Temperature Source Temporal Pulse Rate 102 H Respiratory Rate 22 H 18 Respiratory Effort Blood Pressure 114/68 103/47 L Blood Pressure Mean 83 65 Pulse Ox 75 4 Oxygen Delivery Method Room Air Nasal Cannula Nasal Cannula Oxygen Flow Rate (L/min) 90 5 07/02/21 10:53 07/02/21 10:54 07/02/21 11:51 Temperature 99.2 F H Temperature Source Temporal Pulse Rate 102 H 93 Respiratory Rate 18 18 Respiratory Effort Short of Breath Blood Pressure 103/47 L 108/56 L Blood Pressure Mean 65 73 Pulse Ox 92 100 Oxygen Delivery Method Nasal Cannula Nasal Cannula Nasal Cannula Oxygen Flow Rate (L/min) 5 4 4 Positive well nourished and well developed General Appearance ED: well developed, pallor and other Pulse ox upon arrival was 78%. Patient appears pale. He is tachypneic. He has mild conversational dyspnea with oxygen on. ; Negative for NAD HEENT Reports TM's clear and moist mucous membranes; Denies dry mucous membranes HEENT Narrative: Uvula midline. There is no erythema or exudate of the posterior pharynx. There is no angioedema. atraumatic; Negative for trauma or tenderness Tympanic Membrane ED: Yes TM's clear Mouth ED: No dry mucous membranes Mouth: No dry mucous membranes Eyes PERRL and EOMs intact bilaterally General Eye ED: Yes pale conjunctiva; Negative for scleral icterus Neck no lymphadenopathy, supple, no meningeal signs and No no JVD General: Negative for tenderness Resp No normal respiratory effort and No clear to auscultation bilaterally Auscultation: rales bilateral 1/[address] up and diminished lung sounds Cardio regular rhythm, S1 normal heart sound, S2 normal heart sound and no murmurs Rate: tachycardic Rhythm: abnormal rhythm other (Patient had a run of nonsustained V. tach on the monitor.) GI non-tender, non-distended and no masses Auscultation: normoactive bowel sounds Palpation: soft Back/Spine no CVA tenderness and normal to inspection General Back: Negative for CVA tenderness or tenderness Extremity Negative for normal to inspection Extremity Narrative: 4 to 6 mm of pitting edema bilaterally General Extremety ED: Yes edema; Negative for tenderness General Extremity: edema Neuro oriented x3, CN's II-XII intact bilaterally and no sensory deficits noted Anoop Coma Scale: document GCS findings Spontaneous Obeys Commands Oriented 15 Sensorium / Orientation: alert Psych mental status grossly normal Thought Process: normal thought process Skin no wounds General Skin Exam: pallor; Negative for jaundice Lesions: no lesions Rashes: no rashes MDM MDM MDM Narrative Medical decision making narrative: Presents with increased dyspnea and hypoxia on room air. He is presently requiring 6 L which is higher than his baseline of 3 L. Suspect he has exacerbation of congestive heart failure. Will obtain EKG to rule out ischemia since there was an episode of nonsustained V. tach. Troponin and BNP to evaluate for for non-ST elevation PR and severity of his heart failure. This also may represent fluid overload state due to noncompliance of diet, which patient admitted to. Need to also consider COPD/pneumonia. Patient has 3 sirs criteria tachycardia, tachypnea and elevated white count with superimposed pneumonia and exacerbation of congestive heart failure. Lab Data Attestation: I reviewed the patient's lab results. Lab results narrative: With an elevated white count and shift concern patient has pneumonia on top of CHF/fluid overload state. Creatinine is at baseline. Glucose elevated 129. Troponins elevated at 52 but normal. This may be due to his heart failure. Because of concern for pneumonia lactate and blood cultures were ordered prior to administration of antibiotics. He also was treated with Lasix. Lactate is normal. BNP is greater than 5000. White count is elevated which it is not normally. Labs: Laboratory Results - last 24 hr 07/02/21 07/02/21 07/02/21 10:45 10:45 10:45 WBC 18.7 H RBC 3.07 L Hgb 9.0 L Hct 28.8 L MCV 93.8 MCH 29.3 MCHC 31.3 L RDW Std Deviation 64.7 H RDW Coeff of Nick 19.4 H Plt Count 342 MPV 8.4 Immature Gran % (Auto) 0.600 Neut % (Auto) 90.8 H Lymph % (Auto) 2.7 L [place] % (Auto) 5.5 Eos % (Auto) 0.1 Baso % (Auto) 0.3 Absolute Neuts (auto) 17.0 H Absolute Lymphs (auto) 0.50 L Nucleated RBC % 0 Sodium 138 Potassium 3.7 Chloride 100 Carbon Dioxide 31.0 Anion Gap 7 BUN 30 H Creatinine 3.20 H Estim Creat Clear Calc 18.93 Est GFR (MDRD) Af Amer 25 L Est GFR (MDRD) Non-Af 20 L BUN/Creatinine Ratio 9.4 L Glucose 129 H Lactic Acid Calcium 8.3 L Troponin I High Sens 52 B-Natriuretic Peptide > 5000.0 H 07/02/21 11:40 WBC RBC Hgb Hct MCV MCH MCHC RDW Std Deviation RDW Coeff of Nick Plt Count MPV Immature Gran % (Auto) Neut % (Auto) Lymph % (Auto) [place] % (Auto) Eos % (Auto) Baso % (Auto) Absolute Neuts (auto) Absolute Lymphs (auto) Nucleated RBC % Sodium Potassium Chloride Carbon Dioxide Anion Gap BUN Creatinine Estim Creat Clear Calc Est GFR (MDRD) Af Amer Est GFR (MDRD) Non-Af BUN/Creatinine Ratio Glucose Lactic Acid 1.6 Calcium Troponin I High Sens B-Natriuretic Peptide Radiography Chest X-Ray - ED: 1 View and Read by ED Physician (Chest x-ray is independently reviewed and interpreted by me. Patient has evidence of bilateral pleural effusions, CHF and there appears to be an infiltrate as well.) Diagnostic Testing: Clinical Impression(s) from Imaging Studies Chest X-Ray 07/02/21 10:55 IMPRESSION: 1. Worsening CHF/lower lobe edema. Pneumonia a secondary consideration. 2. Small pleural effusions. Right Pleurx catheter. Electronically Signed: John Diop MD ([place]) at 11:13 EDT Reading Location ID and State: [address] [place] [address] , Service support , Rhythm Strip Rhythm Strip: Sinus Tach (107) Ectopy: PVC(s) (Nonsustained V. tach) EKG Initial EKG: Attestation: I personally reviewed and interpreted this EKG as follows: Interpretation: Sinus Tachycardia (Ventricular rate is 102. There is evidence of a first-degree AV block with WI interval of 232 ms. Cures duration 208 ms. QT interval is 332 ms. The axis is to the left. Patient has low voltage. There is significant artifact as well.) Discharge Plan Dx/Rx/DC Orders Clinical Impression: Acute and chronic respiratory failure with hypoxia, HLD (hyperlipidemia), HTN (hypertension), Stage 4 chronic kidney disease, Acute exacerbation of congestive heart failure, Pneumonia, Sepsis Disposition Disposition: Acute Care [facility]
--- NOTE | 2021-07-02 10:55 | RAD_ITS ---
STUDY: X-RAY CHEST REASON FOR EXAM: Male, 75 years old. Hypoxia, bilateral rales TECHNIQUE: AP COMPARISON: 01/11/2021 FINDINGS: EKG leads project over the chest. Pleurx catheter at the right lung base. Increased vascular congestion with interstitial opacities in the central and lower lungs. Small bilateral pleural effusions. No pneumothorax. There is mild cardiac enlargement. Sternal wires and mediastinal surgical clips compatible with prior CABG. Normal visualized pulmonary arteries. There is atherosclerotic calcification of the aortic arch with tortuosity. No acute bony process. There is no demonstrated abnormality of the visualized soft tissue structures of the upper abdomen. RAD/Chest 1 View (Portable) IMPRESSION: 1. Worsening CHF/lower lobe edema. Pneumonia a secondary consideration. 2. Small pleural effusions. Right Pleurx catheter. Electronically Signed: John Diop MD ([place]) at 11:13 EDT ,
[2021-07-02 11:02] LABS: Basophil# 0.06 X10^3/uL; Basophil% 0.3 % (0-1); Eosinophil# 0.01 X10^3/uL; Eosinophils% 0.1 % (0-5); Hematocrit 28.8 % (40-54); Lymphocyte % 2.7 % (19-41); Mean Corp Hgb Conc 31.3 g/dL (32-36); Mean Corpuscular Hgb 29.3 pg (27.0-32.0); Mean Corpuscular Volume 93.8 fL (80-94); Mean Platelet Vol. 8.4 fl (6.2-12.0); Monocyte# 1.02 X10^3/uL; Monocyte% 5.5 % (0-10); NRBC Flagged by Analyzer 0 % (0-5); Neutrophil # 16.99 X10^3/uL (2.7-7.7); Neutrophil % 90.8 % (47-70); POSITIVE DIFFERENTIAL YES; Platelet Count 342 K/mm3 (150-450); RBC Distribution Width CV 19.4 % (11.6-14.6); RBC Distribution Width SD 64.7 fl (35.1-43.9); Red Blood Count 3.07 M/mm3 (4.6-6.2); White Blood Count 18.7 K/mm3 (4.4-11.0)
[2021-07-02 11:17] LABS: Anion Gap 7 (5-15); BUN 30 mg/dL (7-18); BUN/Creat Ratio 9.4 RATIO (10-20); Calcium,Total 8.3 mg/dL (8.5-10.1); Chloride 100 mmol/L (98-107); EST Glomerular Filtration Rate 20 mL/min (>60); Est Glom Filt Rate - Afr Amer 25 mL/min (>60); Estimated Creatinine Clearance 18.93 ml/min; Glucose 129 mg/dL (74-106); Potassium 3.7 mmol/L (3.5-5.1); Sodium Level 138 mmol/L (136-145); Troponin-I HS 52 pg/mL (3.0-78.0)
[2021-07-02] MEDS: Furosemide 40 MG/4 ML Vial IV (11:47)
[2021-07-02] MEDS: levoFLOXacin IV 750 MG/150 ML BAG 100 MG IV (11:47)
[2021-07-02 12:07] LABS: BNP,B-Type NATRIURETIC PEPTIDE > 5000.0 pg/mL (0-100)
[2021-07-02 12:13] LABS: Lactic Acid 1.6 mmol/L (0.4-1.9)
--- NOTE | 2021-07-02 12:37 | HP.PCM.HOS_ITS ---
HPI - General General Date of Admission: 07/02/21 Date of Service: 07/02/21 Chief Complaint: Shortness of breath HPI Narrative ANGIE SINGH, is a 75 M with multiple comorbidities including chronic bilateral pleural effusions that is post bilateral Pleurx catheter placement for which patient drains twice weekly, end-stage renal disease on hemodialysis Wednesdays and Fridays who presented with shortness of breath. Patient symptoms started a day prior to his admission. He did experience subjective fever as well as chills in addition to cough. His symptoms did worsen hence patient presented to the ED. Emergency department patient was found to be significantly hypoxic with oxygen saturation in the mid 70s. He was placed on supplemental oxygen with recovery of his transient hypoxia. Imaging studies obtained was consistent with bilateral lower lobe pneumonia. Was also found to have elevated WBC count. Antibiotics initiated per protocol patient admitted to a monitored bed for further management [facility] Medical History Abnormal chest CT Ambulates with cane Anemia Anemia Anxiety Arthritis Back pain BPH (benign prostatic hyperplasia) Cardiology follow-up encounter Chest pain Chronic kidney disease, stage 3 Congestive heart failure (CHF) COPD (chronic obstructive pulmonary disease) COPD (chronic obstructive pulmonary disease) Coronary artery disease involving coronary bypass graft Coronary atherosclerosis of [place] coronary artery CPAP (continuous positive airway pressure) dependence CPAP (continuous positive airway pressure) dependence Depression Dietary restriction Emphysema, unspecified Erectile dysfunction Former smoker Former smoker GERD (gastroesophageal reflux disease) Gout Gout High cholesterol History of atrial fibrillation History of echocardiogram History of edema History of heart attack History of renal disease HLD (hyperlipidemia) HTN (hypertension) Hypertension Lumbar disc disease with radiculopathy Lumbosacral stenosis Malfunction of arteriovenous dialysis fistula Myocardial infarct Obesity On home oxygen therapy MARCELO (obstructive sleep apnea) Psychosexual dysfunction with inhibited sexual excitement Shortness of breath on exertion Sleep apnea Wears dentures Wears glasses Home Medications allopurinol 100 mg tablet 100 mg PO DAILY 05/03/18 [History Last Taken 11/14/19] aspirin 81 mg chewable tablet 81 mg PO DAILY 05/03/18 [History Last Taken 11/14/19] magnesium oxide 400 mg PO BID cap 05/03/18 [History Last Taken 11/14/19] nitroglycerin 0.4 mg sublingual tablet 0.4 mg SUBLINGUAL Q5-15M PRN 05/03/18 [History Last Taken Unknown] omeprazole 20 mg tablet,delayed release 20 mg PO DAILY PRN PRN 01/01/19 [History Last Taken 12/14/20] multivitamin 1 ea PO DAILY 11/14/19 [History Last Taken 11/14/19] ferrous sulfate 325 mg (65 mg iron) tablet 325 mg PO BID 11/09/20 [History Last Taken Unknown] sertraline 50 mg tablet 50 mg PO DAILY 11/09/20 [History Last Taken Unknown] amiodarone 200 mg tablet 200 mg PO DAILY 11/19/20 [History Last Taken 12/14/20] apixaban 5 mg tablet 5 mg PO BID tab 11/19/20 [History Last Taken 11/22/20] rosuvastatin 10 mg tablet 10 mg PO QHS 11/19/20 [History Last Taken Unknown] albuterol sulfate 2.5 mg INHALATION PRN PRN 11/23/20 [History Last Taken Unknown] ascorbic acid (vitamin C) [Vitamin C] 500 mg PO DAILY 11/23/20 [History Last Taken Unknown] guaifenesin [Mucinex] 600 mg PO BID 11/23/20 [History Last Taken Unknown] metoprolol succinate 25 mg PO DAILY 11/23/20 [History Last Taken 12/14/20] furosemide 80 mg tablet 40 mg PO BID tab 12/21/20 [History Last Taken Unknown] fluticasone propionate 50 mcg/actuation nasal spray,suspension 2 spray INTRANASAL DAILY #16 g 04/06/21 [Rx Last Taken Unknown] glycopyrrolate 9 mcg-formoterol 4.8 mcg HFA aerosol inhaler 2 puff INHALATION BID PRN #10.7 g 04/06/21 [Rx Last Taken Unknown] sacubitril 24 mg-valsartan 26 mg tablet 1 tab PO DAILY tab 04/06/21 [History Last Taken Unknown] Allergy/AdvReac Type Severity Reaction Status Date / Time Penicillins Allergy Severe Rash, 105 Verified 04/06/21 09:57 temp amlodipine Allergy itching Verified 04/06/21 09:57 and rash prednisone Allergy Other Verified 04/06/21 09:57 aspirin AdvReac Mild rash Verified 04/06/21 09:57 Family History Mother , 84 y.o. Hypertension CVA (cerebral vascular accident) Father , 70 y.o. Heart disease Hodgkin disease Sister , 72 y.o. Heart disease Surgical History H/O left cataract extraction History of cardiac catheterization History of colonoscopy History of coronary artery stent placement History of heart artery stent History of heart surgery History of knee replacement procedure of left knee History of open heart surgery (~08/2020) History of total right knee replacement S/P arteriovenous (AV) fistula repair (~12/2020) Social History household members: spouse housing: house pets and animals: No Smoking Status: Former smoker second hand exposure: No alcohol intake: current alcohol intake frequency: holidays/special occasions only ROS ROS Narrative GENERAL: fever, chills, HEENT: denies headache, sinus congestion, or drainage, dysphagia RESPIRATORY: cough, sputum production, shortness of breath, dyspnea on exertion CARDIAC: denies chest pain, palpitations, orthopnea, PND GASTROINTESTINAL: denies abdominal pain, nausea, vomiting, melena, GENITOURINARY: denies dysuria, urgency, frequency, heamaturia EXTREMITY: denies swelling MUSCULOSKELETAL: denies current joint pain or tenderness NEUROLOGIC: denies focal numbness, weakness, tingling HEMATOLOGIC: denies easy bruising and/or hemorrhage INTEGUMENT: denies rashes PSYCHIATRIC: denies suicidal or homicidal ideation Vital Signs Vital Signs Vital Signs: 07/02/21 10:29 07/02/21 10:47 07/02/21 10:51 Temperature 99.2 F H Temperature Source Temporal Pulse Rate 102 H Respiratory Rate 22 H 18 Respiratory Effort Blood Pressure 114/68 103/47 L Blood Pressure Mean 83 65 Pulse Ox 75 4 Oxygen Delivery Method Room Air Nasal Cannula Nasal Cannula Oxygen Flow Rate (L/min) 90 5 07/02/21 10:53 07/02/21 10:54 07/02/21 11:51 Temperature 99.2 F H Temperature Source Temporal Pulse Rate 102 H 93 Respiratory Rate 18 18 Respiratory Effort Short of Breath Blood Pressure 103/47 L 108/56 L Blood Pressure Mean 65 73 Pulse Ox 92 100 Oxygen Delivery Method Nasal Cannula Nasal Cannula Nasal Cannula Oxygen Flow Rate (L/min) 5 4 4 Weight Weight: 85.275 kg Body Mass Index (BMI) 29.4 Physical Exam Narrative GENERAL: cooperative appears ill looking HEENT: Atraumatic; EYES; Anicteric, Normal Conjunctiva NECK; supple, normal thyroid, RESPIRATORY: Diminished to auscultation, bilateral Pleurx catheter in situ CARDIOVASCULAR: Regular S1 S2, GI: soft, normoactive bowel sounds, : No Renal angle tenderness; EXTREMITIES: Trace bipedal edema, no clubbing, MUSCULOSKELETAL: no muscle wasting NEURO: Awake; no lateralizing signs. SKIN: No Rash PSYCH; Flat affect Results Lab / Micro Data Result Diagrams: 07/02/21 10:45 07/02/21 10:45 Labs: Laboratory Results - last 24 hr 07/02/21 10:45: WBC 18.7 H, RBC 3.07 L, Hgb 9.0 L, Hct 28.8 L, MCV 93.8, MCH 29.3, MCHC 31.3 L, RDW Std Deviation 64.7 H, RDW Coeff of Nick 19.4 H, Plt Count 342, MPV 8.4, Immature Gran % (Auto) 0.600, Neut % (Auto) 90.8 H, Lymph % (Auto) 2.7 L, [place] % (Auto) 5.5, Eos % (Auto) 0.1, Baso % (Auto) 0.3, Absolute Neuts (auto) 17.0 H, Absolute Lymphs (auto) 0.50 L, Nucleated RBC % 0 07/02/21 10:45: Sodium 138, Potassium 3.7, Chloride 100, Carbon Dioxide 31.0, Anion Gap 7, BUN 30 H, Creatinine 3.20 H, Estim Creat Clear Calc 18.93, Est GFR (MDRD) Af Amer 25 L, Est GFR (MDRD) Non-Af 20 L, BUN/Creatinine Ratio 9.4 L, Glucose 129 H, Calcium 8.3 L, Troponin I High Sens 52 07/02/21 10:45: B-Natriuretic Peptide > 5000.0 H 07/02/21 11:40: Lactic Acid 1.6 Rhythm Strip Rhythm Strip: Sinus Tach (107) Ectopy: PVC(s) (Nonsustained V. tach) Radiology Impression Chest X-Ray 07/02/21 10:55 IMPRESSION: 1. Worsening CHF/lower lobe edema. Pneumonia a secondary consideration. 2. Small pleural effusions. Right Pleurx catheter. Electronically Signed: John Diop MD (Brooks) at 11:13 EDT Reading Location ID and State: [address] [place] [address] , Service support , Assessment & Plan Assessment/Plan (1) Pneumonia: (2) Sepsis: PLAN: Patient is a 75-year-old gentleman presenting with progressive shortness of breath with associated cough. Chest x-ray obtained on admission demonstrated imaging findings consistent with pneumonia 1. Sepsis ? (Has leukocytosis heart rate greater than 90 respiratory 20 WBC count 18,000) and has pneumonia on chest x-ray. Admitted to monitored bed sepsis treatment initiated per protocol. Patient is at risk for MDR's. He was therefore started on cefepime to cover for possible Pseudomonas as well as vancomycin for possible MRSA. Cultures and start MRSA swabs ordered. Also requested for respiratory viral panel and rapid COVID test 2. Transient hypoxia ? Patient recovered quickly once placed on supplemental oxygen 3. Chronic bilateral pleural effusions ? Patient has bilateral Pleurx catheter for drainage of his pleural fluid twice a week 4. End-stage renal disease ? On hemodialysis on Wednesdays and Fridays consultation was placed to nephrology for dialysis orders 5. Acute on chronic chronic heart failure with reduced ejection fraction ? Patient presented with worsening dyspnea and bipedal edema. His fluid status is mainly managed through dialysis. Patient is however on diuretics with Lasix discontinued. Also on Entresto. Echo obtained on 08/25/2020 demonstrated EF of 30% 6. Coronary artery disease status post CABG 7. Paroxysmal A. fib ? Rate controlled on amiodarone on systemic anticoagulation with apixaban discontinued 8. Obstructive sleep apnea ? On CPAP at night 9. Gout ? Patient is on allopurinol did continue 10. Dyslipidemia -Patient is on statin therapy, continued at home dose 11. GERD ? On PPI 12. Hypertension - Blood pressure controlled, home medications continued with dose adjustment as needed 13. Class I obesity ? With BMI of 30.0 weight loss advised 14. DVT prophylaxis ? On apixaban Advance planning; did discuss with the patient and family (patient's ) regarding advanced directives as well as CODE STATUS. Did explain the various scenarios involved ( FULL CODE, DNR CCA, DNR CCA with no intubation, and DNR CC and what each meant) patient elected remain full code with CPR and intubation if warranted. Order was placed. Time spent on discussion 18 minutes. Charges/Coding Visit Charges Inpatient E&M: 45718 Init Hosp L3 Procedures Hospitalists Procedures: 13977 Advncd Care Plan 30 Min
[2021-07-02 13:50] LABS: Differential Indicated SCAN CRITERIA MET
--- NOTE | 2021-07-02 14:04 | ECHOD_ITS ---
Reason For Study: CHF Procedure This was a 2D Doppler, Color Flow transthoracic echocardiogram. Exam performed portable in patient room. Left Ventricle Moderately dilated left ventricle. The estimated ejection fraction is 25-30 %. Right Ventricle Mildly dilated right ventricle. Mild global right ventricular systolic dysfunction. Atria The left atrium is mildly enlarged. Normal right atrium. Mitral Valve The mitral valve is structurally normal. No prolapse or stenosis seen. Mild (1+) mitral valve insufficiency. Tricuspid Valve Normal tricuspid valve. Mild tricuspid valve insufficiency. Right ventricular systolic pressure estimated to be 39.9 mmHg. Aortic Valve Mild focal aortic valve calcification. No aortic valve insufficiency. Pulmonic Valve The pulmonic valve is not well visualized. Great Vessels Normal aortic root. Pericardium/Pleural No pericardial effusion. MMode/2D Measurements & Calculations LVIDd: 5.3 cm IVSd: 1.1 cm Ao root diam: 3.5 cm LVIDs: 4.5 cm LVPWd: 1.4 cm RVDd: 4.5 cm FS: 14.9 % LAV(MOD-bp): 80.2 ml LVAd ap4: 46.4 cm2 LVAd ap2: 43.0 cm2 LAV(MOD-bp) Indexed: 40.4 ml/m2 LVLd ap4: 9.8 cm LVLd ap2: 9.4 cm LAV(MOD-sp2): 63.2 ml EDV(MOD-sp4): 181.0 ml EDV(MOD-sp2): 166.5 ml LAV(MOD-sp4): 85.8 ml EDV(sp4-el): 186.5 ml EDV(sp2-el): 166.5 ml LVAs ap4: 32.5 cm2 LVAs ap2: 31.5 cm2 LVLs ap4: 8.6 cm LVLs ap2: 8.3 cm ESV(MOD-sp4): 101.4 ml ESV(MOD-sp2): 103.9 ml ESV(sp4-el): 104.4 ml ESV(sp2-el): 102.1 ml EF(MOD-sp4): 44.0 % EF(MOD-sp2): 37.6 % EF(sp4-el): 44.0 % SV(MOD-sp4): 79.7 ml SV(MOD-sp2): 62.5 ml SV(sp4-el): 82.1 ml LA dimension(2D): 4.4 cm LA A4 area: 26.2 cm2 RA A4 area: 23.7 cm2 Doppler Measurements & Calculations MV E max pierre: 98.6 cm/sec Lat Peak E' Pierre: 7.1 cm/sec Med Peak E' Pierre: 3.6 cm/sec MV A max pierre: 60.0 cm/sec E/E' lat: 13.9 E/E' med: 27.2 MV E/A: 1.6 Ao V2 max: 136.4 cm/sec LV V1 max: 96.2 cm/sec PA V2 max: 77.5 cm/sec Ao max P.4 mmHg LV V1 max P.7 mmHg TR max pierre: 315.8 cm/sec TR max P.9 mmHg ECHO/Echo Complete Interpretation Summary The estimated ejection fraction is 25-30 %. Severe LV systholic Dysfunction Mild MR Right ventricular systolic pressure estimated to be 39.9 mmHg. No significant Changes from previous echo 04/2020 Ordering Physician: Sachin Ulloa Referring Physician: Zack Stacy MD Performed By: Nora Salcido RDCS
--- NOTE | 2021-07-02 14:21 | PCM.RX.CS ---
Consult Pharmacy has been consulted to manage selected antiobiotic: Vancomycin Type of Consult: New start Suspected Infection: Pneumonia Labs: Sodium 138 mmol/L (136-145) 07/02/21 10:45 Potassium 3.7 mmol/L (3.5-5.1) 07/02/21 10:45 Chloride 100 mmol/L (98-107) 07/02/21 10:45 Carbon Dioxide 31.0 mmol/L (21.0-32.0) 07/02/21 10:45 Anion Gap 7 (5-15) 07/02/21 10:45 BUN 30 mg/dL (7-18) H 07/02/21 10:45 Creatinine 3.20 mg/dL (0.70-1.30) H 07/02/21 10:45 Est GFR (MDRD) Af Amer 25 mL/min (>60) L 07/02/21 10:45 Est GFR (MDRD) Non-Af 20 mL/min (>60) L 07/02/21 10:45 BUN/Creatinine Ratio 9.4 RATIO (10-20) L 07/02/21 10:45 Glucose 129 mg/dL (74-106) H 07/02/21 10:45 Goal Trough: 15-20 mcg/mL Pharmacy Plan for Drug Dosing: NEW START IV VANCOMYCIN Consulting Physician: Dr. Ulloa Indication: sepsis/ pneumonia Goal Trough: 15-20 SrCr: HD patient- usual schedule is M// dialysis Comments: Initial dose of 1250mg IV x1 ordered and scheduled to be administered after HD session today. Vancomcyin Dose: Patient to have 2nd dose after next hd. pharmacy will enter once known pt to get HD on Monday Pending Level: not scheduled, will plan on being prior to 3rd total vancomycin dose Pharmacy Service will continue to monitor and adjust dosing as required.
[2021-07-02 15:18] LABS: M R Staph aureus DNA By PCR Negative (Negative); Probe Check PASS; Specimen Processing Control PASS
[2021-07-02] MEDS: Ferrous Sulfate 325 MG Tablet PO (18:24)
[2021-07-02] MEDS: Furosemide 40 MG Tablet PO (18:24)
--- NOTE | 2021-07-02 19:03 | DIALYSIS ---
Hemodialysis tx completed x 3.5 hours without complications. Pt tolerated tx well, fluid removed 2,300ml using crit-line monitor. Vital stable throughout tx. Verbal report given to HALEY Larios post tx.
[2021-07-02] MEDS: Ipratropium/Albuterol Sulfate 3 ML AMPUL.NEB INHALATION (20:20)
[2021-07-02] MEDS: Atorvastatin Calcium 20 MG Tablet PO (22:36)
[2021-07-02] MEDS: guaiFENesin 600 MG Tablet PO (22:36)
[2021-07-02] MEDS: APIXABAN 5 MG TABLET PO (22:36)
[2021-07-02] MEDS: Albuterol 2.5 MG/3 ML VIAL.NEB. INHALATION (23:17)
[2021-07-03] VITALS (15 sets, daily range): BP systolic 83–112; BP diastolic 45–67; PULSE 71–90; RESP 17–20; TEMP 36.3–36.9; O2SAT 94–98
[2021-07-03 06:22] LABS: Absolute Lymphocyte Count 0.76 X10^3/uL (0.83-4.51); Absolute Neutrophil Count 10.3 X10^3/uL (2.0-7.7); Basophil# 0.05 X10^3/uL; Basophil% 0.4 % (0-1); Eosinophil# 0.05 X10^3/uL; Eosinophils% 0.4 % (0-5); Hematocrit 24.9 % (40-54); Hemoglobin 7.5 g/dL (13.0-16.5); Lymphocyte # 0.76 X10^3/ul (0.83-4.51); Lymphocyte % 6.2 % (19-41); Mean Corp Hgb Conc 30.1 g/dL (32-36); Mean Corpuscular Volume 92.9 fL (80-94); Mean Platelet Vol. 9.1 fl (6.2-12.0); Monocyte# 1.05 X10^3/uL; Monocyte% 8.6 % (0-10); NRBC Flagged by Analyzer 0 % (0-5); Neutrophil # 10.32 X10^3/uL (2.7-7.7); Neutrophil % 84.1 % (47-70); Platelet Count 234 K/mm3 (150-450); RBC Distribution Width CV 19.2 % (11.6-14.6); RBC Distribution Width SD 64.8 fl (35.1-43.9); Red Blood Count 2.68 M/mm3 (4.6-6.2); White Blood Count 12.3 K/mm3 (4.4-11.0)
[2021-07-03] MEDS: Ipratropium/Albuterol Sulfate 3 ML AMPUL.NEB INHALATION ×3 (06:50→18:28)
[2021-07-03 06:58] LABS: Anion Gap 5 (5-15); BUN 19 mg/dL (7-18); BUN/Creat Ratio 8.7 RATIO (10-20); Chloride 99 mmol/L (98-107); Creatinine, Serum 2.19 mg/dL (0.70-1.30); EST Glomerular Filtration Rate 31 mL/min (>60); Est Glom Filt Rate - Afr Amer 38 mL/min (>60); Estimated Creatinine Clearance 27.67 ml/min; Glucose 88 mg/dL (74-106); Magnesium 1.9 mg/dL (1.6-2.6); Phosphorus 2.3 mg/dL (2.5-4.9); Potassium 3.3 mmol/L (3.5-5.1); Sodium Level 136 mmol/L (136-145)
[2021-07-03] MEDS: Potassium Chloride Oral Tablet 20 MEQ 40 MEQ PO (08:01)
[2021-07-03] MEDS: Ferrous Sulfate 325 MG Tablet PO ×2 (08:04→17:21)
[2021-07-03] MEDS: Aspirin 81 MG TAB.CHEW PO (08:04)
[2021-07-03] MEDS: Multivitamins,Therapeutic Tablet 1 TABLET PO (08:04)
[2021-07-03] MEDS: Fluticasone 0.05% 1 SPRAY NASAL.SRY 2 SPRAY NASAL (10:01)
[2021-07-03] MEDS: Sertraline 50 MG Tablet PO (10:02)
[2021-07-03] MEDS: Ascorbic Acid 500 MG Tablet PO (10:02)
[2021-07-03] MEDS: Furosemide 40 MG Tablet PO ×2 (10:02→17:21)
[2021-07-03] MEDS: SACUBITRIL/VALSARTAN 24/26 MG TABLET 1 EACH PO (10:02)
[2021-07-03] MEDS: APIXABAN 5 MG TABLET PO ×2 (10:02→21:21)
[2021-07-03] MEDS: Amiodarone 200 MG Tablet PO (10:02)
[2021-07-03] MEDS: Allopurinol 100 MG Tablet PO (10:03)
[2021-07-03] MEDS: guaiFENesin 600 MG Tablet PO ×2 (10:03→21:21)
--- NOTE | 2021-07-03 10:28 | PCM.PN.HOSP ---
Documented by User: Raven Cole PLATE PAINTER APPRENTICE, PLATE PAINTER APPRENTICE-C 07/03/21 10:47 Subjective Subjective Patient seen and examined. Denies fever, chills. Reports productive cough with yellow/green sputum. Denies shortness of breath. States he wears supplemental oxygen at baseline. Objective Data Objective Data Vital Signs: Vital Signs Temp Pulse Resp BP Pulse Ox 97.4 F L 71 18 97/67 95 07/03/21 09:55 07/03/21 09:55 07/03/21 09:55 07/03/21 09:55 07/03/21 09:55 Oxygen Flow Rate (L/min) 3 Oxygen Delivery Method Nasal Cannula Weight: 185 lb 6.54 oz Body Mass Index (BMI) 29.9 Intake & Output: Intake and Output for Last 24 Hours 07/01/21 07/02/21 07/03/21 23:59 23:59 23:59 Intake Total 500 / 500 275 / 275 Output Total 175 / 175 300 / 300 Balance 325 / 325 -25 / -25 Lab / Micro Data Result Diagrams: 07/03/21 05:01 07/03/21 05:01 Labs: Laboratory Results - last 24 hr 07/02/21 10:45: WBC 18.7 H, RBC 3.07 L, Hgb 9.0 L, Hct 28.8 L, MCV 93.8, MCH 29.3, MCHC 31.3 L, RDW Std Deviation 64.7 H, RDW Coeff of Nick 19.4 H, Plt Count 342, MPV 8.4, Immature Gran % (Auto) 0.600, Neut % (Auto) 90.8 H, Lymph % (Auto) 2.7 L, [place] % (Auto) 5.5, Eos % (Auto) 0.1, Baso % (Auto) 0.3, Absolute Neuts (auto) 17.0 H, Absolute Lymphs (auto) 0.50 L, Nucleated RBC % 0 07/02/21 10:45: Sodium 138, Potassium 3.7, Chloride 100, Carbon Dioxide 31.0, Anion Gap 7, BUN 30 H, Creatinine 3.20 H, Estim Creat Clear Calc 18.93, Est GFR (MDRD) Af Amer 25 L, Est GFR (MDRD) Non-Af 20 L, BUN/Creatinine Ratio 9.4 L, Glucose 129 H, Calcium 8.3 L, Troponin I High Sens 52 07/02/21 10:45: B-Natriuretic Peptide > 5000.0 H 07/02/21 11:40: Lactic Acid 1.6 07/02/21 14:00: MRSA (PCR) Negative 07/02/21 14:40: COVID-19 ([facility]) Not Detected 07/03/21 05:01: WBC 12.3 H, RBC 2.68 L, Hgb 7.5 L, Hct 24.9 L, MCV 92.9, MCH 28.0, MCHC 30.1 L, RDW Std Deviation 64.8 H, RDW Coeff of Nick 19.2 H, Plt Count 234, MPV 9.1, Immature Gran % (Auto) 0.300, Neut % (Auto) 84.1 H, Lymph % (Auto) 6.2 L, [place] % (Auto) 8.6, Eos % (Auto) 0.4, Baso % (Auto) 0.4, Absolute Neuts (auto) 10.3 H, Absolute Lymphs (auto) 0.76 L, Nucleated RBC % 0 07/03/21 05:01: Sodium 136, Potassium 3.3 L, Chloride 99, Carbon Dioxide 32.0, Anion Gap 5, BUN 19 H, Creatinine 2.19 H, Estim Creat Clear Calc 27.67, Est GFR (MDRD) Af Amer 38 L, Est GFR (MDRD) Non-Af 31 L, BUN/Creatinine Ratio 8.7 L, Glucose 88, Calcium 8.0 L, Phosphorus 2.3 L, Magnesium 1.9 Micro: Microbiology 07/02/21 14:40 Mucosa - Nose Respiratory Panel (PCR) - Final 07/02/21 14:00 Mucosa - Nose Influenza Types A,B Direct FA (ANALIA) - Final Radiography Diagnostic Testing: Radiology Impression Chest X-Ray 07/02/21 10:55 IMPRESSION: 1. Worsening CHF/lower lobe edema. Pneumonia a secondary consideration. 2. Small pleural effusions. Right Pleurx catheter. Electronically Signed: John Diop MD (Brooks) at 11:13 EDT Reading Location ID and State: [address] [place] [address] , Service support , Rhythm Strip Rhythm Strip: Sinus Tach (107) Ectopy: PVC(s) (Nonsustained V. tach) Physical Exam Const alert and oriented x3 Orientation / Consciousness: awake, oriented to person, oriented to place and oriented to time HEENT normocephalic and moist oral mucous membranes Eyes PERRL, EOMs intact bilaterally and conjunctivae normal Neck no lymphadenopathy Resp Resp Narrative: Bilateral pleural X catheter in place Auscultation: crackles, rales and diminished lung sounds Cardio regular rate, regular rhythm and no murmurs Peripheral Pulses: pulses 2+ throughout GI normal to inspection, nondistended, normoactive bowel sounds, non-tender and non-distended Extremity normal to inspection General Extremity: edema bilateral lower extremity Details: trace Skin no rashes or lesions noted Lesions: no lesions Rashes: no rashes Trauma: no lacerations or abrasions Neuro CN's II-XII intact bilaterally, no focal motor deficits, no sensory deficits noted and deep tendon reflexes 2+ bilaterally Psych mental status grossly normal and affect normal Assessment & Plan Assessment/Plan (1) Acute and chronic respiratory failure with hypoxia: (2) Pneumonia: PLAN: 1. Sepsis secondary to pneumonia-on IV cefepime and IV vancomycin. Obtain sputum culture. Albuterol and DuoNeb aerosols. Leukocytosis improving. PT/OT. 2. Acute on chronic heart failure with reduced ejection fraction-echocardiogram 08/25/2020 demonstrated an EF of 30%. Continue home Lasix regimen. Continue dialysis for fluid managment. 3. Chronic bilateral pleural effusions-bilateral Pleurx catheter placed December 2020. Follows with pulmonary medicine. 4. Chronic hypoxic respiratory failure-wears 3 L at baseline. Patient on supplemental oxygen at baseline secondary to chronic heart failure with reduced ejection fraction and chronic bilateral pleural effusions. Patient initially placed on 6 L on admission however quickly improved. 5. Anemia of chronic disease/iron deficiency-continue iron supplementation. Trend CBC. 6. End-stage renal disease on hemodialysis-nephrology following. 7. CAD with history of CABG-continue aspirin, statin, metoprolol, Entresto. 8. Paroxysmal atrial fibrillation-on amiodarone, Eliquis. 9. MARCELO-continue PAP regimen. 10. Hypertension-stable, continue current regimen. 11. Hyperlipidemia- continue statin. 12. Gout-on allopurinol. 13. GERD-continue PPI. 14. Depression-on sertraline. DVT prophylaxis- Eliquis This patient was seen by CARLOS Schultz under the supervision of Dr. Ulloa. Documented by User: Dr. Sachin Ulloa MD 07/03/21 11:46 Objective Data Lab / Micro Data Result Diagrams: 07/03/21 05:01 07/03/21 05:01 Assessment & Plan Addt'l Comments This patient was seen in conjunction with CARLOS Schultz . I have independently interviewed and examined the patient and reviewed pertinent historical, laboratory, and other data. Please refer to CARLOS Schultz note for details of this patient's presentation, findings, and recommendations. I have reviewed CARLOS Schultz note and concur with documented findings. In brief, Patient is a 75-year-old gentleman presenting with progressive shortness of breath with associated cough. Chest x-ray obtained on admission demonstrated imaging findings consistent with pneumonia. Antibiotics were initiated per protocol admitted to a monitored bed for further management Physical Examination: GENERAL: cooperative appears ill looking HEENT: Atraumatic; EYES; Anicteric, Normal Conjunctiva NECK; supple, normal thyroid, RESPIRATORY: Diminished to auscultation, bilateral Pleurx catheter in situ CARDIOVASCULAR: Regular S1 S2, GI: soft, normoactive bowel sounds, : No Renal angle tenderness; EXTREMITIES: Trace bipedal edema, no clubbing, MUSCULOSKELETAL: no muscle wasting NEURO: Awake; no lateralizing signs. SKIN: No Rash PSYCH; Flat affect Assessment: 1. Sepsis 2. Pneumonia secondary to suspected MDR 3. Chronic bilateral pleural effusions 4. End-stage renal disease 5. Acute on chronic chronic heart failure with reduced ejection fraction 6. Coronary artery disease status post CABG 7. Paroxysmal A. fib 8. Obstructive sleep apnea? On CPAP at night 9. Gout 10. Dyslipidemia 11. GERD 12. Hypertension 13. Class I obesity 14. DVT prophylaxis Recommendations: 1. I have discussed the results of my overview and impressions with the patient 2. Options for management were reviewed Total time spent by myself and the advanced practice practitioner evaluating patient, reviewing labs, subsequent management decisions, discussion with patient as well as other providers 45 minutes ( 25 of which was spent by myself) Charges/Coding Visit Charges Inpatient E&M: 72693 Subs Hosp L3
--- NOTE | 2021-07-03 10:45 | CON.PCM.RE_ITS ---
Assessment & Plan Assessment/Plan (1) ESRD (end stage renal disease): PLAN: - The patient usually dialyzes on MWF schedule at [facility]. His pc support specialist is Dr. Fam. -The patient was dialyzed yesterday. There is no need for dialysis today. -Next dialysis is scheduled for 06/30/2021. I will reassess the patient again tomorrow to determine if there is any early need for dialysis. (2) Hypokalemia: PLAN: - Potassium level 3.3 mmol/L today. -We will replace potassium deficit since the patient is on furosemide. -Recheck potassium and magnesium tomorrow. (3) Hypophosphatemia: PLAN: - The patient is not on phosphorus binder. -Since potassium is also low, we will replace potassium and phosphorus deficits with potassium phosphate. -Recheck phosphorus level tomorrow. (4) HTN (hypertension): PLAN: - BP is controlled on metoprolol and Entresto. -There is no signs of volume overload. -We will monitor BP. (5) Pneumonia: PLAN: - Antibiotic treatment as per hospital medicine service. HPI Consult Data Date of Consult: 07/03/21 HPI Narrative Reason for Consultation: ESRD HPI Narrative: The patient is a 75-year-old man with past history of CAD, heart failure with reduced ejection fraction, hypertension, atrial fibrillation, obstructive sleep apnea, gout, and hyperlipidemia. The patient also has a history of ESRD and receives dialysis at [facility] dialysis unit on a MWF schedule. The patient is followed in the dialysis unit by Dr. Raymond and Dr. fam. The patient presented to the hospital on 07/02/2021 with 1 day history of increasing shortness of breath. The patient does have chronic pleural effusion and has bilateral Pleurx catheter. He gets his pleural drain twice per week. The patient was admitted to the hospital and diagnosed with pneumonia. The patient was dialyzed yesterday with approximately 2 L ultrafiltration. He feels better today. He denies chest pain, shortness of breath at rest, nausea, vomiting, diarrhea, or edema. [facility] Medical History (Updated 07/03/21 @ 10:[address] Elke Hewitt MD) Abnormal chest CT Ambulates with cane Anemia Anemia Anxiety Arthritis Back pain BPH (benign prostatic hyperplasia) Cardiology follow-up encounter Chest pain Chronic kidney disease, stage 3 Congestive heart failure (CHF) COPD (chronic obstructive pulmonary disease) COPD (chronic obstructive pulmonary disease) Coronary artery disease involving coronary bypass graft Coronary atherosclerosis of [place] coronary artery CPAP (continuous positive airway pressure) dependence CPAP (continuous positive airway pressure) dependence Depression Dietary restriction Emphysema, unspecified Erectile dysfunction Former smoker Former smoker GERD (gastroesophageal reflux disease) Gout Gout High cholesterol History of atrial fibrillation History of echocardiogram History of edema History of heart attack History of renal disease HLD (hyperlipidemia) HTN (hypertension) Hypertension Lumbar disc disease with radiculopathy Lumbosacral stenosis Malfunction of arteriovenous dialysis fistula Myocardial infarct Obesity On home oxygen therapy MARCELO (obstructive sleep apnea) Psychosexual dysfunction with inhibited sexual excitement Shortness of breath on exertion Sleep apnea Wears dentures Wears glasses Home Medications allopurinol 100 mg tablet 100 mg PO DAILY 05/03/18 [History Last Taken 11/14/19] aspirin 81 mg chewable tablet 81 mg PO DAILY 05/03/18 [History Last Taken 11/14/19] magnesium oxide 400 mg PO BID cap 05/03/18 [History Last Taken 11/14/19] nitroglycerin 0.4 mg sublingual tablet 0.4 mg SUBLINGUAL Q5-15M PRN 05/03/18 [H istory Last Taken Unknown] omeprazole 20 mg tablet,delayed release 20 mg PO DAILY PRN PRN 01/01/19 [History Last Taken 12/14/20] multivitamin 1 ea PO DAILY 11/14/19 [History Last Taken 11/14/19] ferrous sulfate 325 mg (65 mg iron) tablet 325 mg PO BID 11/09/20 [History Last Taken Unknown] sertraline 50 mg tablet 50 mg PO DAILY 11/09/20 [History Last Taken Unknown] amiodarone 200 mg tablet 200 mg PO DAILY 11/19/20 [History Last Taken 12/14/20] apixaban 5 mg tablet 5 mg PO BID tab 11/19/20 [History Last Taken 11/22/20] rosuvastatin 10 mg tablet 10 mg PO QHS 11/19/20 [History Last Taken Unknown] albuterol sulfate 2.5 mg INHALATION PRN PRN 11/23/20 [History Last Taken Unknown] ascorbic acid (vitamin C) [Vitamin C] 500 mg PO DAILY 11/23/20 [History Last Taken Unknown] guaifenesin [Mucinex] 600 mg PO BID 11/23/20 [History Last Taken Unknown] metoprolol succinate 25 mg PO DAILY 11/23/20 [History Last Taken 12/14/20] furosemide 80 mg tablet 40 mg PO BID tab 12/21/20 [History Last Taken Unknown] fluticasone propionate 50 mcg/actuation nasal spray,suspension 2 spray INTRANASAL DAILY #16 g 04/06/21 [Rx Last Taken Unknown] glycopyrrolate 9 mcg-formoterol 4.8 mcg HFA aerosol inhaler 2 puff INHALATION BID PRN #10.7 g 04/06/21 [Rx Last Taken Unknown] sacubitril 24 mg-valsartan 26 mg tablet 1 tab PO DAILY tab 04/06/21 [History Last Taken Unknown] Allergy/AdvReac Type Severity Reaction Status Date / Time Penicillins Allergy Severe Rash, 105 Verified 04/06/21 09:57 temp amlodipine Allergy itching Verified 04/06/21 09:57 and rash prednisone Allergy Other Verified 04/06/21 09:57 aspirin AdvReac Mild rash Verified 04/06/21 09:57 Family History Mother , 84 y.o. Hypertension CVA (cerebral vascular accident) Father , 70 y.o. Heart disease Hodgkin disease Sister , 72 y.o. Heart disease Surgical History H/O left cataract extraction History of cardiac catheterization History of colonoscopy History of coronary artery stent placement History of heart artery stent History of heart surgery History of knee replacement procedure of left knee History of open heart surgery (~08/2020) History of total right knee replacement S/P arteriovenous (AV) fistula repair (~12/2020) Social History household members: spouse housing: house pets and animals: No Smoking Status: Former smoker second hand exposure: No alcohol intake: current alcohol intake frequency: holidays/special occasions only ROS ROS Narrative 12/20 ROS was done and otherwise noncontributory aside from what is documented in HPI. Physical Exam Narrative General: NAD HEENT: Normocephalic, atraumatic. PERRLA, EOMI. Hearing is intact. Mucous membranes moist without erythema. Neck: Supple, no JVD. Heart: Normal S1, S2. No rubs, murmurs or gallops. Lungs: Mild basilar crackles. No wheezing. Abdomen: Normal bowel sounds, soft, nontender, no organomegaly, no guarding or rebound. Extremity: There is no lower extremity edema. There is a left lower arm AV graft which has good thrill and bruit. Musculoskeletal: Full passive range of motion. There is no joint swelling. Neurological: No focal neurologic deficit. Psychiatric: Normal mood and affect. Skin: No rash, skin is warm and dry. Lab / Micro Data Result Diagrams: 07/03/21 05:01 07/03/21 05:01 Labs: Laboratory Results - last 24 hr 07/02/21 10:45: WBC 18.7 H, RBC 3.07 L, Hgb 9.0 L, Hct 28.8 L, MCV 93.8, MCH 29.3, MCHC 31.3 L, RDW Std Deviation 64.7 H, RDW Coeff of Nick 19.4 H, Plt Count 342, MPV 8.4, Immature Gran % (Auto) 0.600, Neut % (Auto) 90.8 H, Lymph % (Auto) 2.7 L, [place] % (Auto) 5.5, Eos % (Auto) 0.1, Baso % (Auto) 0.3, Absolute Neuts (auto) 17.0 H, Absolute Lymphs (auto) 0.50 L, Nucleated RBC % 0 07/02/21 10:45: Sodium 138, Potassium 3.7, Chloride 100, Carbon Dioxide 31.0, Anion Gap 7, BUN 30 H, Creatinine 3.20 H, Estim Creat Clear Calc 18.93, Est GFR (MDRD) Af Amer 25 L, Est GFR (MDRD) Non-Af 20 L, BUN/Creatinine Ratio 9.4 L, Glucose 129 H, Calcium 8.3 L, Troponin I High Sens 52 07/02/21 10:45: B-Natriuretic Peptide > 5000.0 H 07/02/21 11:40: Lactic Acid 1.6 07/02/21 14:00: MRSA (PCR) Negative 07/02/21 14:40: COVID-19 (KAVON) Not Detected 07/03/21 05:01: WBC 12.3 H, RBC 2.68 L, Hgb 7.5 L, Hct 24.9 L, MCV 92.9, MCH 28.0, MCHC 30.1 L, RDW Std Deviation 64.8 H, RDW Coeff of Nick 19.2 H, Plt Count 234, MPV 9.1, Immature Gran % (Auto) 0.300, Neut % (Auto) 84.1 H, Lymph % (Auto) 6.2 L, [place] % (Auto) 8.6, Eos % (Auto) 0.4, Baso % (Auto) 0.4, Absolute Neuts (auto) 10.3 H, Absolute Lymphs (auto) 0.76 L, Nucleated RBC % 0 07/03/21 05:01: Sodium 136, Potassium 3.3 L, Chloride 99, Carbon Dioxide 32.0, Anion Gap 5, BUN 19 H, Creatinine 2.19 H, Estim Creat Clear Calc 27.67, Est GFR (MDRD) Af Amer 38 L, Est GFR (MDRD) Non-Af 31 L, BUN/Creatinine Ratio 8.7 L, Glucose 88, Calcium 8.0 L, Phosphorus 2.3 L, Magnesium 1.9 Micro: Microbiology 07/02/21 14:40 Mucosa - Nose Respiratory Panel (PCR) - Final 07/02/21 14:00 Mucosa - Nose Influenza Types A,B Direct FA (ANALIA) - Final Rhythm Strip Rhythm Strip: Sinus Tach (107) Ectopy: PVC(s) (Nonsustained V. tach) Radiology Impression Chest X-Ray 07/02/21 10:55 IMPRESSION: 1. Worsening CHF/lower lobe edema. Pneumonia a secondary consideration. 2. Small pleural effusions. Right Pleurx catheter. Electronically Signed: John Diop MD ([place]) at 11:13 EDT ,
--- NOTE | 2021-07-03 11:00 | CASEMGMT ---
HALEY BLANK LOAN REVIEWER CM to room to meet with patient for initial transition planning/care coordination assessment. HALEY BLANK introduced self and role at [facility].? Pt voices understanding and consents to assessment at this time.? Pt sitting up in recliner chair in no distress at this time.? @ bedside. Pt is A/O at this time and answers all questions appropriately.?? Care providers, pharmacy, and demographics verified/updated at this time. PCP: Dr Zack Stacy Specialists: Dr Ramirez--pulmonology. Dr Dorantes--sheet heater from [facility], who comes to [place]. Pig Lead Melter Helper-Dr Ramirez @ [facility] in [place] HD: Pt goes to [facility] for HD MWF. Chair time 1000. Preferred Pharmacy: [facility] Insurance: [facility] [place] Prescription Benefit:? Yes Living Will/HPOA:? Has LW and HPOA, who is his , Janae LNOK: , Janae Living Arrangements: Lives w/ in one-story home w/3 steps to enter. Independent w/ADL's. does most home mgmt tasks. Pleurx Cath: Pt drains 3 x's/week. Transportation: drives DME: ? Has shower chair, RTS, Cane, nebulizer, pulse ox, walker, rollator, CPAP. O2 through [facility] DME 2-3 l/m w/exertion. Pt has concentrator and portable O2 tank. can bring in portable tank @ d/c. Call placed to [facility] DME and spoke w/Zo. She states pt's current O2 orders are 2 l/m w/exertion. HHC/SNF: No hx of SNF. [facility] to [facility] and spoke w/Sho. She confirms pt is active w/them for SN only. She was made aware pt has been admitted to [facility]. [facility] order placed. Pt wishes to return home w/resumption of HHC thru [facility] for SN. Denies need for therapy. Pt and state no concerns with going home at time of discharge. Pt and voice no further concerns/needs at this time.? PLAN: ?Home w/[facility]HC @ [facility]: SN Follow for any increase in O2 needs @ d/c. Home ambulatory O2 testing to be completed prior to discharge. If pt requires any O2 @ rest, or more than 2 l/m w/exertion, will need new script for O2 faxed to [facility]. Green sheet on chart w/instructions for [facility] and O2, if needed. [facility]HC: PH: [phone] [facility] DME: Claudio WINSLOW RN CM
[2021-07-03] MEDS: Na Biphos/Potassium Phosphate PACKET 1 PACKET PO ×2 (12:14→21:35)
[2021-07-03] MEDS: Atorvastatin Calcium 20 MG Tablet PO (21:21)
[2021-07-03] MEDS: 0.9% Saline Lock 10 ML Syringe IV (21:22)
--- NOTE | 2021-07-03 22:16 | NURSING ---
2155 BP in right arm 82/55, retake 97/45. Pt has no symptoms of lightheadedness or dizziness. Will recheck in one hour after ATB IV is completed.
[2021-07-04] VITALS (9 sets, daily range): BP systolic 106–117; BP diastolic 55–62; PULSE 78–99; RESP 16–20; TEMP 36.3–36.9; O2SAT 90–96
[2021-07-04 06:01] LABS: Absolute Lymphocyte Count 0.69 X10^3/uL (0.83-4.51); Absolute Neutrophil Count 7.9 X10^3/uL (2.0-7.7); Basophil# 0.04 X10^3/uL; Basophil% 0.4 % (0-1); Eosinophil# 0.42 X10^3/uL; Eosinophils% 4.3 % (0-5); Hematocrit 25.4 % (40-54); Hemoglobin 8.1 g/dL (13.0-16.5); Lymphocyte # 0.69 X10^3/ul (0.83-4.51); Mean Corp Hgb Conc 31.9 g/dL (32-36); Mean Corpuscular Hgb 28.9 pg (27.0-32.0); Mean Corpuscular Volume 90.7 fL (80-94); Mean Platelet Vol. 8.9 fl (6.2-12.0); Monocyte# 0.74 X10^3/uL; Monocyte% 7.6 % (0-10); NRBC Flagged by Analyzer 0 % (0-5); Neutrophil # 7.87 X10^3/uL (2.7-7.7); Neutrophil % 80.3 % (47-70); Platelet Count 247 K/mm3 (150-450); RBC Distribution Width CV 19.2 % (11.6-14.6); RBC Distribution Width SD 64.2 fl (35.1-43.9); White Blood Count 9.8 K/mm3 (4.4-11.0)
[2021-07-04 06:41] LABS: Anion Gap 5 (5-15); BUN 34 mg/dL (7-18); BUN/Creat Ratio 10.6 RATIO (10-20); Calcium,Total 7.7 mg/dL (8.5-10.1); Chloride 100 mmol/L (98-107); Creatinine, Serum 3.22 mg/dL (0.70-1.30); EST Glomerular Filtration Rate 20 mL/min (>60); Est Glom Filt Rate - Afr Amer 24 mL/min (>60); Estimated Creatinine Clearance 18.82 ml/min; Glucose 97 mg/dL (74-106); Phosphorus 3.2 mg/dL (2.5-4.9); Sodium Level 136 mmol/L (136-145)
[2021-07-04] MEDS: Ipratropium/Albuterol Sulfate 3 ML AMPUL.NEB INHALATION ×2 (06:41→12:53)
[2021-07-04] MEDS: Fluticasone 0.05% 1 SPRAY NASAL.SRY 2 SPRAY NASAL (10:07)
[2021-07-04] MEDS: Na Biphos/Potassium Phosphate PACKET 1 PACKET PO (10:08)
[2021-07-04] MEDS: guaiFENesin 600 MG Tablet PO (10:08)
[2021-07-04] MEDS: APIXABAN 5 MG TABLET PO (10:08)
[2021-07-04] MEDS: Metoprolol(XL)Succ 25 MG Tablet PO (10:08)
[2021-07-04] MEDS: Amiodarone 200 MG Tablet PO (10:08)
[2021-07-04] MEDS: Multivitamins,Therapeutic Tablet 1 TABLET PO (10:08)
[2021-07-04] MEDS: Furosemide 40 MG Tablet PO (10:08)
[2021-07-04] MEDS: Ascorbic Acid 500 MG Tablet PO (10:08)
[2021-07-04] MEDS: Sertraline 50 MG Tablet PO (10:09)
[2021-07-04] MEDS: Aspirin 81 MG TAB.CHEW PO (10:09)
[2021-07-04] MEDS: Allopurinol 100 MG Tablet PO (10:09)
[2021-07-04] MEDS: Ferrous Sulfate 325 MG Tablet PO (10:09)
--- NOTE | 2021-07-04 10:15 | DCINST_ITS ---
Discharge Instructions Diet Discharge Diet: Low fat / Low cholesterol and 2000 mg Sodium Diet Activity Discharge Activity: Return to Normal Activity Dressing / Incision Call your doctor if you observe: Fever of 101 or Higher, Shortness of breath, Dizziness and Chest pain Follow Up Care Test Results: Test results from this visit will be discussed in further detail a t your follow-up appointment, if applicable. Discharge Plan Admission Admit Date/Time: 07/02/21 12:38 Primary Reason for Your Visit: Sepsis, pneumonia Attending Provider: Sachin Ulloa Primary Care Provider: Zack Stacy Consulting Providers: Kirsty Ewing Discharge Orders/Prescriptions Prescriptions: New levofloxacin 500 mg tablet 500 mg PO Q48H Qty: 3 RF: 0 Continued allopurinol 100 mg tablet 100 mg PO DAILY RF: 0 aspirin 81 mg tablet,chewable 81 mg PO DAILY RF: 0 magnesium oxide 400 mg capsule 400 mg PO BID RF: 0 nitroglycerin 0.4 mg tablet, sublingual 0.4 mg SUBLINGUAL Q5-15M PRN (Reason: chest pain) RF: 0 omeprazole 20 mg tablet,delayed release (DR/EC) 20 mg PO DAILY PRN PRN (Reason: Indigestion) RF: 0 furosemide [Lasix] 80 mg tablet 40 mg PO BID RF: 0 amiodarone 200 mg tablet 200 mg PO DAILY RF: 0 rosuvastatin [Crestor] 10 mg tablet 10 mg PO QHS RF: 0 apixaban 5 mg tablet 5 mg PO BID RF: 0 Entresto 24-26 mg tablet 1 tab PO DAILY RF: 0 sertraline 50 mg tablet 50 mg PO DAILY RF: 0 ferrous sulfate [iron] 325 mg (65 mg iron) tablet 325 mg PO BID RF: 0 fluticasone propionate 50 mcg/actuation spray,suspension 2 spray INTRANASAL DAILY Qty: 16 RF: 5 Bevespi Aerosphere 9-4.8 mcg HFA aerosol inhaler 2 puff INHALATION BID PRN (Reason: SOB) Qty: 10.7 RF: 6 multivitamin 1 EACH tablet 1 ea PO DAILY RF: 0 albuterol sulfate 2.5 mg /3 mL (0.083 %) solution for nebulization 2.5 mg inhalation PRN PRN (Reason: COPD) RF: 0 ascorbic acid (vitamin C) [Vitamin C] 500 mg Capsule, Extended Release 500 mg PO DAILY RF: 0 metoprolol succinate 25 mg tablet extended release 24 hr 25 mg PO DAILY RF: 0 guaifenesin [Mucinex] 600 mg Tablet Extended Release 12hr 600 mg PO BID RF: 0 Referrals / Follow Up: Zack Stacy MD [Primary Care Provider] - In 1 Week Farideh Phan NP, EDUCATION PARAPROFESSIONAL-C [Nurse Practitioner] - See Referral Note (As scheduled 08/03/2021) Disposition Disposition (needs filled in before D/C Order can be placed): Home, Self Care
--- NOTE | 2021-07-04 10:42 | PCM.DC.SUM ---
Documented by User: Raven Cole NP, [employer] S[employer]IST-C 07/04/21 10:51 Providers Date of Admission: 07/02/21 Date of Discharge: 07/04/21 Primary Care Physician: Dr. Zack Stacy MD Consultations 07/02/21 13:07 Consult: Nephrology Routine Consulting Provider: Kirsty Ewing Reason for Consult: esrd EMERGENT Consult: Yes MD Notified: Yes Date Notified: 07/02/21 Time Notified: 13:07 Method of Notification: Verbal Reason For Visit: PNEUMONIA Diagnosis Discharge Diagnosis (1) ESRD (end stage renal disease): Status: Acute Code(s): N18.6 - End stage renal disease (2) Hypokalemia: Status: Acute Code(s): E87.6 - Hypokalemia (3) Hypophosphatemia: Status: Acute Code(s): E83.39 - Other disorders of phosphorus metabolism (4) HTN (hypertension): Status: Chronic Code(s): I10 - Essential (primary) hypertension (5) Pneumonia: Status: Acute Code(s): J18.9 - Pneumonia, unspecified organism Medications at Discharge Home Medications allopurinol 100 mg tablet 100 mg PO DAILY 05/03/18 aspirin 81 mg chewable tablet 81 mg PO DAILY 05/03/18 magnesium oxide 400 mg PO BID cap 05/03/18 nitroglycerin 0.4 mg sublingual tablet 0.4 mg SUBLINGUAL Q5-15M PRN 05/03/18 omeprazole 20 mg tablet,delayed release 20 mg PO DAILY PRN PRN 01/01/19 multivitamin 1 ea PO DAILY 11/14/19 ferrous sulfate 325 mg (65 mg iron) tablet 325 mg PO BID 11/09/20 sertraline 50 mg tablet 50 mg PO DAILY 11/09/20 amiodarone 200 mg tablet 200 mg PO DAILY 11/19/20 apixaban 5 mg tablet 5 mg PO BID tab 11/19/20 rosuvastatin 10 mg tablet 10 mg PO QHS 11/19/20 albuterol sulfate 2.5 mg INHALATION PRN PRN 11/23/20 ascorbic acid (vitamin C) [Vitamin C] 500 mg PO DAILY 11/23/20 guaifenesin [Mucinex] 600 mg PO BID 11/23/20 metoprolol succinate 25 mg PO DAILY 11/23/20 furosemide 80 mg tablet 40 mg PO BID tab 12/21/20 fluticasone propionate 50 mcg/actuation nasal spray,suspension 2 spray INTRANASAL DAILY #16 g 04/06/21 glycopyrrolate 9 mcg-formoterol 4.8 mcg HFA aerosol inhaler 2 puff INHALATION BID PRN #10.7 g 04/06/21 sacubitril 24 mg-valsartan 26 mg tablet 1 tab PO DAILY tab 04/06/21 levofloxacin 500 mg PO Q48H #3 tab 07/04/21 Hospital Course Operations None Procedures None Summary of Care Provided Hospital Course: Patient is a 75 year old male admitted 07/02/21 due to shortness of breath and cough. 1. Sepsis secondary to pneumonia-IV cefepime and IV vancomycin during admission. Leukocytosis resolved. Afebrile. Allergy to penicillin. Discharged on Levaquin to complete course of antibiotics. Follow-up with PCP and pulmonary medicine at discharge. 2. Acute on chronic heart failure with reduced ejection fraction-echocardiogram 08/25/2020 demonstrated an EF of 30%. Continue home Lasix regimen. Continue dialysis for fluid management. 3. Chronic bilateral pleural effusions-bilateral Pleurx catheter placed December 2020. Follows with pulmonary medicine. 4. Chronic hypoxic respiratory failure secondary to chronic heart failure with reduced ejection fraction and chronic bilateral pleural effusions-current home O2 order is for 2 L with exertion however patient states his oxygen needs fluctuate depending on pleural effusion status. Patient initially placed on 6 L on admission however quickly improved. Repeat home oxygen testing prior to discharge. Continue supplement oxygen to maintain O2 at above 90%. 5. Anemia of chronic disease/iron deficiency-continue iron supplementation. 6. End-stage renal disease on hemodialysis-continue outpatient follow-up with nephrology. 7. CAD with history of CABG-continue aspirin, statin, metoprolol, Entresto. 8. Paroxysmal atrial fibrillation-on amiodarone, Eliquis. 9. MARCELO-continue PAP regimen. 10. Hypertension-stable, continue current regimen. 11. Hyperlipidemia- continue statin. 12. Gout-on allopurinol. 13. GERD-continue PPI. 14. Depression-on sertraline. Physical Exam Const alert and oriented x3 Orientation / Consciousness: awake, oriented to person, oriented to place and oriented to time HEENT normocephalic and moist oral mucous membranes Eyes PERRL, EOMs intact bilaterally and conjunctivae normal Neck no lymphadenopathy Resp Resp Narrative: Bilateral pleural X catheter in place Auscultation: Diminished, few scattered crackles improved from prior.- Cardio regular rate, regular rhythm and no murmurs Peripheral Pulses: pulses 2+ throughout GI normal to inspection, nondistended, normoactive bowel sounds, non-tender and non-distended Extremity normal to inspection General Extremity: edema bilateral lower extremity Details: trace Skin no rashes or lesions noted Lesions: no lesions Rashes: no rashes Trauma: no lacerations or abrasions Neuro CN's II-XII intact bilaterally, no focal motor deficits, no sensory deficits noted and deep tendon reflexes 2+ bilaterally Psych mental status grossly normal and affect normal Patient seen and examined prior to discharge. Physical assessment as noted above. Patient is stable for discharge with follow up recommendations as noted above. This patient was seen by CARLOS Schultz under the supervision of Dr. Ulloa. Weight / BMI Weight Weight: 186 lb 4.65 oz Body Mass Index (BMI) 29.9 ABG / Lab / Microbiology Data Result Diagrams: 07/04/21 05:42 07/04/21 05:42 Laboratory: Laboratory Results - last 24 hr 07/04/21 05:42: WBC 9.8, RBC 2.80 L, Hgb 8.1 L, Hct 25.4 L, MCV 90.7, MCH 28.9, MCHC 31.9 L D, RDW Std Deviation 64.2 H, RDW Coeff of Nick 19.2 H, Plt Count 247, MPV 8.9, Immature Gran % (Auto) 0.400, Neut % (Auto) 80.3 H, Lymph % (Auto) 7.0 L, [place] % (Auto) 7.6, Eos % (Auto) 4.3, Baso % (Auto) 0.4, Absolute Neuts (auto) 7.9 H, Absolute Lymphs (auto) 0.69 L, Nucleated RBC % 0 07/04/21 05:42: Sodium 136, Potassium 4.0, Chloride 100, Carbon Dioxide 31.0, Anion Gap 5, BUN 34 H, Creatinine 3.22 H, Estim Creat Clear Calc 18.82, Est GFR (MDRD) Af Amer 24 L, Est GFR (MDRD) Non-Af 20 L, BUN/Creatinine Ratio 10.6, Glucose 97, Calcium 7.7 L, Phosphorus 3.2 Microbiology: Microbiology 07/02/21 14:40 Mucosa - Nose Respiratory Panel (PCR) - Final 07/02/21 14:00 Mucosa - Nose Influenza Types A,B Direct FA (ANALIA) - Final Radiography Diagnostic Testing: Radiology Impression Echocardiogram 07/02/21 14:04 Interpretation Summary The estimated ejection fraction is 25-30 %. Severe LV systholic Dysfunction Mild MR Right ventricular systolic pressure estimated to be 39.9 mmHg. No significant Changes from previous echo 04/2020 Ordering Physician: Sachin Ulloa Referring Physician: Zack Stacy MD Performed By: Nora Salcido RDCS D/C Instructions Discharge Diet: Low fat / Low cholesterol and 2000 mg Sodium Diet Call your doctor if you observe: Fever of 101 or Higher, Shortness of breath, Dizziness and Chest pain Meaningful Use Info Meaningful Use Diagnoses (Choose all that apply): None applicable Discharge Plan Admission Admit Date/Time: 07/02/21 12:38 Primary Reason for Your Visit: Sepsis, pneumonia Attending Provider: Sachin Ulloa Primary Care Provider: Zack Stacy Consulting Providers: Kirsty Ewing Discharge Orders/Prescriptions Prescriptions: New levofloxacin 500 mg tablet 500 mg PO Q48H Qty: 3 RF: 0 Continued allopurinol 100 mg tablet 100 mg PO DAILY RF: 0 aspirin 81 mg tablet,chewable 81 mg PO DAILY RF: 0 magnesium oxide 400 mg capsule 400 mg PO BID RF: 0 nitroglycerin 0.4 mg tablet, sublingual 0.4 mg SUBLINGUAL Q5-15M PRN (Reason: chest pain) RF: 0 omeprazole 20 mg tablet,delayed release (DR/EC) 20 mg PO DAILY PRN PRN (Reason: Indigestion) RF: 0 furosemide [Lasix] 80 mg tablet 40 mg PO BID RF: 0 amiodarone 200 mg tablet 200 mg PO DAILY RF: 0 rosuvastatin [Crestor] 10 mg tablet 10 mg PO QHS RF: 0 apixaban 5 mg tablet 5 mg PO BID RF: 0 Entresto 24-26 mg tablet 1 tab PO DAILY RF: 0 sertraline 50 mg tablet 50 mg PO DAILY RF: 0 ferrous sulfate [iron] 325 mg (65 mg iron) tablet 325 mg PO BID RF: 0 fluticasone propionate 50 mcg/actuation spray,suspension 2 spray INTRANASAL DAILY Qty: 16 RF: 5 Bevespi Aerosphere 9-4.8 mcg HFA aerosol inhaler 2 puff INHALATION BID PRN (Reason: SOB) Qty: 10.7 RF: 6 multivitamin 1 EACH tablet 1 ea PO DAILY RF: 0 albuterol sulfate 2.5 mg /3 mL (0.083 %) solution for nebulization 2.5 mg inhalation PRN PRN (Reason: COPD) RF: 0 ascorbic acid (vitamin C) [Vitamin C] 500 mg Capsule, Extended Release 500 mg PO DAILY RF: 0 metoprolol succinate 25 mg tablet extended release 24 hr 25 mg PO DAILY RF: 0 guaifenesin [Mucinex] 600 mg Tablet Extended Release 12hr 600 mg PO BID RF: 0 Referrals / Follow Up: Zack Stacy MD [Primary Care Provider] - In 1 Week Farideh Phan NP, [employer]IST-C [Nurse Practitioner] - See Referral Note (As scheduled 08/03/2021) Disposition Disposition (needs filled in before D/C Order can be placed): Home Health Service Documented by User: Dr. Sachin Ulloa MD 07/04/21 13:15 Providers Date of Admission: 07/02/21 Reason For Visit: PNEUMONIA Medications at Discharge Home Medications allopurinol 100 mg tablet 100 mg PO DAILY 05/03/18 aspirin 81 mg chewable tablet 81 mg PO DAILY 05/03/18 magnesium oxide 400 mg PO BID cap 05/03/18 nitroglycerin 0.4 mg sublingual tablet 0.4 mg SUBLINGUAL Q5-15M PRN 05/03/18 omeprazole 20 mg tablet,delayed release 20 mg PO DAILY PRN PRN 01/01/19 multivitamin 1 ea PO DAILY 11/14/19 ferrous sulfate 325 mg (65 mg iron) tablet 325 mg PO BID 11/09/20 sertraline 50 mg tablet 50 mg PO DAILY 11/09/20 amiodarone 200 mg tablet 200 mg PO DAILY 11/19/20 apixaban 5 mg tablet 5 mg PO BID tab 11/19/20 rosuvastatin 10 mg tablet 10 mg PO QHS 11/19/20 albuterol sulfate 2.5 mg INHALATION PRN PRN 11/23/20 ascorbic acid (vitamin C) [Vitamin C] 500 mg PO DAILY 11/23/20 guaifenesin [Mucinex] 600 mg PO BID 11/23/20 metoprolol succinate 25 mg PO DAILY 11/23/20 furosemide 80 mg tablet 40 mg PO BID tab 12/21/20 fluticasone propionate 50 mcg/actuation nasal spray,suspension 2 spray INTRANASAL DAILY #16 g 04/06/21 glycopyrrolate 9 mcg-formoterol 4.8 mcg HFA aerosol inhaler 2 puff INHALATION BID PRN #10.7 g 04/06/21 sacubitril 24 mg-valsartan 26 mg tablet 1 tab PO DAILY tab 04/06/21 levofloxacin 500 mg PO Q48H #3 tab 07/04/21 Hospital Course Operations None Procedures 2-D Echocardiogram Summary of Care Provided Minutes Spent on Discharge: 40 Hospital Course: This patient was seen in conjunction with CARLOS Schultz . I have independently interviewed and examined the patient and reviewed pertinent historical, laboratory, and other data. Please refer to CARLOS Schultz note for details of this patient's presentation, findings, and recommendations. I have reviewed CARLOS Schultz note and concur with documented findings. In brief, Patient is a 75-year-old gentleman presenting with progressive shortness of breath with associated cough. Chest x-ray obtained on admission demonstrated imaging findings consistent with pneumonia. Antibiotics were initiated per protocol admitted to a monitored bed for further management Physical Examination: GENERAL: cooperative appears ill looking HEENT: Atraumatic; EYES; Anicteric, Normal Conjunctiva NECK; supple, normal thyroid, RESPIRATORY: Diminished to auscultation, bilateral Pleurx catheter in situ CARDIOVASCULAR: Regular S1 S2, GI: soft, normoactive bowel sounds, : No Renal angle tenderness; EXTREMITIES: Trace bipedal edema, no clubbing, MUSCULOSKELETAL: no muscle wasting NEURO: Awake; no lateralizing signs. SKIN: No Rash PSYCH; Flat affect Assessment: 1. Sepsis 2. Pneumonia secondary to suspected MDR 3. Chronic bilateral pleural effusions 4. End-stage renal disease 5. Acute on chronic chronic heart failure with reduced ejection fraction 6. Coronary artery disease status post CABG 7. Paroxysmal A. fib 8. Obstructive sleep apnea? On CPAP at night 9. Gout 10. Dyslipidemia 11. GERD 12. Hypertension 13. Class I obesity 14. DVT prophylaxis Hospital course ?; As documented above Total time spent by myself and the advanced practice practitioner evaluating patient, reviewing labs, subsequent management decisions, discussion with patient as well as other providers 40 minutes ( 25 of which was spent by myself) ABG / Lab / Microbiology Data Result Diagrams: 07/04/21 05:42 07/04/21 05:42 Discharge Plan Admission Admit Date/Time: 07/02/21 12:38 Primary Reason for Your Visit: Sepsis, pneumonia Attending Provider: Sachin Ulloa Primary Care Provider: Zack Stacy Consulting Providers: Kirsty Ewing Discharge Orders/Prescriptions Prescriptions: New levofloxacin 500 mg tablet 500 mg PO Q48H Qty: 3 RF: 0 Continued allopurinol 100 mg tablet 100 mg PO DAILY RF: 0 aspirin 81 mg tablet,chewable 81 mg PO DAILY RF: 0 magnesium oxide 400 mg capsule 400 mg PO BID RF: 0 nitroglycerin 0.4 mg tablet, sublingual 0.4 mg SUBLINGUAL Q5-15M PRN (Reason: chest pain) RF: 0 omeprazole 20 mg tablet,delayed release (DR/EC) 20 mg PO DAILY PRN PRN (Reason: Indigestion) RF: 0 furosemide [Lasix] 80 mg tablet 40 mg PO BID RF: 0 amiodarone 200 mg tablet 200 mg PO DAILY RF: 0 rosuvastatin [Crestor] 10 mg tablet 10 mg PO QHS RF: 0 apixaban 5 mg tablet 5 mg PO BID RF: 0 Entresto 24-26 mg tablet 1 tab PO DAILY RF: 0 sertraline 50 mg tablet 50 mg PO DAILY RF: 0 ferrous sulfate [iron] 325 mg (65 mg iron) tablet 325 mg PO BID RF: 0 fluticasone propionate 50 mcg/actuation spray,suspension 2 spray INTRANASAL DAILY Qty: 16 RF: 5 Bevespi Aerosphere 9-4.8 mcg HFA aerosol inhaler 2 puff INHALATION BID PRN (Reason: SOB) Qty: 10.7 RF: 6 multivitamin 1 EACH tablet 1 ea PO DAILY RF: 0 albuterol sulfate 2.5 mg /3 mL (0.083 %) solution for nebulization 2.5 mg inhalation PRN PRN (Reason: COPD) RF: 0 ascorbic acid (vitamin C) [Vitamin C] 500 mg Capsule, Extended Release 500 mg PO DAILY RF: 0 metoprolol succinate 25 mg tablet extended release 24 hr 25 mg PO DAILY RF: 0 guaifenesin [Mucinex] 600 mg Tablet Extended Release 12hr 600 mg PO BID RF: 0 Referrals / Follow Up: Zack Stacy MD [Primary Care Provider] - In 1 Week Farideh Phan NP, [employer]IST-C [Nurse Practitioner] - See Referral Note (As scheduled 08/03/2021) Disposition Disposition (needs filled in before D/C Order can be placed): Home Health Service Charges/Coding Visit Charges Inpatient E&M: 01544 Disch Hosp Hospital Course Consultations Consultations: Consultations 07/02/21 13:07 Consult: Nephrology Routine Consulting Provider: Kirsty Ewing Reason for Consult: esrd EMERGENT Consult: Yes Notified: Yes Date Notified: 07/02/21 Time Notified: 13:07 Method of Notification: Verbal Operations None Procedures Procedures: 2-D Echocardiogram
--- NOTE | 2021-07-04 11:22 | PCM.PN.REN ---
Subjective Subjective Following for ESRD. The patient denies shortness of breath today. He also denies dizziness even when he is walking to the restroom. There is no chest pain or nausea. Objective Data Objective Data Vital Signs: Vital Signs Temp Pulse Resp BP Pulse Ox 97.4 F L 85 18 106/56 L 94 07/04/21 10:01 07/04/21 10:08 07/04/21 10:01 07/04/21 10:01 07/04/21 10:01 Oxygen Flow Rate (L/min) [ 2 AMBULATING with Oxygen #1] Oxygen Flow Rate (L/min) 3 Oxygen Delivery Method Nasal Cannula Weight: 84.5 kg Body Mass Index (BMI) 29.9 Intake & Output: Intake and Output for Last 24 Hours 07/02/21 07/03/21 07/04/21 23:59 23:59 23:59 Intake Total 500 / 500 1085 / 1285 320 / 320 Output Total 175 / 175 300 / 300 0 / 0 Balance 325 / 325 785 / 985 320 / 320 Lab / Micro Data Result Diagrams: 07/04/21 05:42 07/04/21 05:42 Labs: Laboratory Results - last 24 hr 07/04/21 05:42: WBC 9.8, RBC 2.80 L, Hgb 8.1 L, Hct 25.4 L, MCV 90.7, MCH 28.9, MCHC 31.9 L D, RDW Std Deviation 64.2 H, RDW Coeff of Nick 19.2 H, Plt Count 247, MPV 8.9, Immature Gran % (Auto) 0.400, Neut % (Auto) 80.3 H, Lymph % (Auto) 7.0 L, [place] % (Auto) 7.6, Eos % (Auto) 4.3, Baso % (Auto) 0.4, Absolute Neuts (auto) 7.9 H, Absolute Lymphs (auto) 0.69 L, Nucleated RBC % 0 07/04/21 05:42: Sodium 136, Potassium 4.0, Chloride 100, Carbon Dioxide 31.0, Anion Gap 5, BUN 34 H, Creatinine 3.22 H, Estim Creat Clear Calc 18.82, Est GFR (MDRD) Af Amer 24 L, Est GFR (MDRD) Non-Af 20 L, BUN/Creatinine Ratio 10.6, Glucose 97, Calcium 7.7 L, Phosphorus 3.2 Micro: Microbiology 07/02/21 14:40 Mucosa - Nose Respiratory Panel (PCR) - Final 07/02/21 14:00 Mucosa - Nose Influenza Types A,B Direct FA (ANALIA) - Final Radiography Diagnostic Testing: Radiology Impression Echocardiogram 07/02/21 14:04 Interpretation Summary The estimated ejection fraction is 25-30 %. Severe LV systholic Dysfunction Mild MR Right ventricular systolic pressure estimated to be 39.9 mmHg. No significant Changes from previous echo 04/2020 Ordering Physician: Sachin Ulloa Referring Physician: Zack Stacy MD Performed By: Nora Salcido RDCS Rhythm Strip Rhythm Strip: Sinus Tach (107) Ectopy: PVC(s) (Nonsustained V. tach) Physical Exam Narrative General: NAD HEENT: Normocephalic, atraumatic. PERRLA, EOMI. Hearing is intact. Mucous membranes moist without erythema. Neck: Supple, no JVD. Heart: Normal S1, S2. No rubs, murmurs or gallops. Lungs: Mild basilar crackles. No wheezing. Abdomen: Normal bowel sounds, soft, nontender, no organomegaly, no guarding or rebound. Extremity: There is no lower extremity edema. There is a left lower arm AV graft which has good thrill and bruit. Assessment & Plan Assessment/Plan (1) ESRD (end stage renal disease): PLAN: - The patient usually dialyzes on MWF schedule at [facility]. His agricultural equipment sales manager is Dr. Fam. -The patient was dialyzed on 07/02/2021. There is no need for dialysis today. -Next dialysis is scheduled for 07/05/2021. -Okay for discharge from nephrology standpoint. I will let his agricultural equipment sales manager know about the admission. (2) Hypokalemia: PLAN: - Potassium level 4.0 mmol/L today after replacement. -Recheck potassium and magnesium as outpatient. (3) Hypophosphatemia: PLAN: - The patient is not on phosphorus binder. -Phosphorus level is better after replacement with potassium phosphate yesterday. -The patient can be discharged without potassium phosphate. -Recheck phosphorus level as outpatient. (4) HTN (hypertension): PLAN: - BP is controlled on metoprolol and Entresto. -There is no signs of volume overload. -We will monitor BP. (5) Pneumonia: PLAN: - Antibiotic treatment as per hospital medicine service.
== END 2021-07-04 13:25 | disposition home health service (06) | DRG 871 ==
LOC: ED 12:27 → PCU 12:52
PROVIDERS: Admitting Provider Internal Medicine; Emergency Provider Emergency Medicine; PCP Family Medicine; Visit Provider Internal Medicine
DX: A41.9 Sepsis, unspecified organism (principal); N18.6 End stage renal disease; J96.21 Acute and chronic respiratory failure with hypoxia; I50.23 Acute on chronic systolic (congestive) heart failure; J18.9 Pneumonia, unspecified organism; I47.2 Ventricular tachycardia; J44.0 Chronic obstructive pulmonary disease with (acute) lower respiratory infection; I13.2 Hypertensive heart and chronic kidney disease with heart failure and with stage 5 chronic kidney disease, or end stage renal disease; J90 Pleural effusion, not elsewhere classified; D63.8 Anemia in other chronic diseases classified elsewhere; E83.39 Other disorders of phosphorus metabolism; Z99.2 Dependence on renal dialysis; I48.0 Paroxysmal atrial fibrillation; I25.10 Atherosclerotic heart disease of native coronary artery without angina pectoris; N40.0 Benign prostatic hyperplasia without lower urinary tract symptoms; M19.90 Unspecified osteoarthritis, unspecified site; F41.9 Anxiety disorder, unspecified; M10.9 Gout, unspecified; K21.9 Gastro-esophageal reflux disease without esophagitis; E78.00 Pure hypercholesterolemia, unspecified; I25.2 Old myocardial infarction; M51.16 Intervertebral disc disorders with radiculopathy, lumbar region; G47.33 Obstructive sleep apnea (adult) (pediatric); D50.9 Iron deficiency anemia, unspecified; E87.6 Hypokalemia; Z95.1 Presence of aortocoronary bypass graft; F32.A Depression, unspecified; E66.9 Obesity, unspecified; Z68.30 Body mass index [BMI] 30.0-30.9, adult; Z79.82 Long term (current) use of aspirin; Z79.899 Other long term (current) drug therapy; Z79.01 Long term (current) use of anticoagulants; I49.3 Ventricular premature depolarization; Z99.81 Dependence on supplemental oxygen; Z97.8 Presence of other specified devices
CPT/HCPCS: 36415; 71045; 80048; 83605; 83735; 83880; 84100; 84484; 85025; 87040; 87633; 87635; 87641; 87804; 90937; 93005; 93306; 94640; 94660; 94762; 97110; 97162; 97166; 99251; 99285; J7030; J7040; J7050; Q9957; A4216; G0257; G0463; J1940; J3490; U0003; U0005

== ENCOUNTER → 2021-11-26 | Outpatient (CLI) | payer MEDICARE, OTHER, SELFPAY ==
[2021-11-26 08:55] VITALS: BP 115/47; PULSE 69; TEMP 35.5; O2SAT 100
[2021-11-26] MEDS: 0.9% NaCl Peripheral Flush Adult/Peds IV (09:01)
[2021-11-26 09:15] VITALS: BP 96/53; PULSE 64; RESP 16; TEMP 35.9; O2SAT 100
[2021-11-26 10:15] VITALS: BP 107/51; PULSE 65; RESP 16; TEMP 35.9; O2SAT 100
[2021-11-26 10:50] VITALS: BP 119/57; PULSE 63; TEMP 35.6; O2SAT 100
[2021-11-26 11:30] VITALS: BP 115/61; PULSE 66; RESP 16; TEMP 36.3; O2SAT 100
== END | disposition home or self-care (01) ==
PROVIDERS: PCP Family Medicine; Referring Provider Internal Medicine Nephrology; Visit Provider Internal Medicine Nephrology
DX: D64.9 Anemia, unspecified (principal)
CPT/HCPCS: 36415; 36430; 86850; 86900; 86901; 86920; 86922; J7040; P9016; A4216

== ENCOUNTER 2021-12-13 15:43 | Inpatient (IN) | payer MEDICARE, OTHER, SELFPAY ==
[2021-12-13] VITALS (15 sets, daily range): BP systolic 96–120; BP diastolic 31–68; PULSE 68–78; RESP 16–18; TEMP 35.9–36.7; O2SAT 94–100; BMI 30.4; BMI 31.3
--- NOTE | 2021-12-13 17:11 | EKG12_ITS ---
Test Reason : ABNORMAL LABS Blood Pressure : / mmHG Vent. Rate : 073 BPM Atrial Rate : 073 BPM P-R Int : 306 ms QRS Dur : 102 ms QT Int : 428 ms P-R-T Axes : 068 -66 022 degrees QTc Int : 471 ms Sinus rhythm with 1st degree A-V block with occasional Premature ventricular complexes Left axis deviation Low voltage QRS Cannot rule out Anterior infarct , age undetermined Abnormal ECG Confirmed by JAMMIE GONZALEZ, ELIGIO ([id number]), writer editor LEONOR WALTER ([id number]) on 12/16/2021 7:56:55 AM Referred By: MARILYN Confirmed By:ELIGIO AGUDELO MD
--- NOTE | 2021-12-13 17:26 | EX.ED.DYSGE1 ---
HPI History of Present Illness Chief Complaint: Abn Labs Narrative Narrative: 76-year-old male presenting with fatigue, shortness of breath, generalized weakness. He states he is having mild over the last couple few days. Patient states he was at dialysis today which she does on Monday, Monday, Monday for end-stage renal disease. Patient states he was told his hemoglobin was low at 5. Patient states he has a history of anemia and needing blood transfusion. He told me that he does not have a history of GI bleed. He states he has been transfused and sent home. Patient is on Eliquis. He denies chest pain. He has no fever, chills. Patient is on 5 L of oxygen currently. He states that he is normally on 4 to 5 L at home for COPD history. He also has history of CHF. [facility] Medical History Abnormal chest CT Anemia Anxiety Arthritis Back pain BPH (benign prostatic hyperplasia) Congestive heart failure (CHF) COPD (chronic obstructive pulmonary disease) Coronary artery disease involving coronary bypass graft CPAP (continuous positive airway pressure) dependence Depression Emphysema, unspecified Erectile dysfunction ESRD (end stage renal disease) Former smoker GERD (gastroesophageal reflux disease) Gout High cholesterol History of atrial fibrillation History of edema History of heart attack HLD (hyperlipidemia) Hypertension Lumbar disc disease with radiculopathy Obesity On home oxygen therapy MARCELO (obstructive sleep apnea) Psychosexual dysfunction with inhibited sexual excitement Sleep apnea Home Medications allopurinol 100 mg tablet 100 mg PO DAILY GOUT 05/03/18 [History Last Taken 12/13/21] aspirin 81 mg chewable tablet 81 mg PO DAILY HEALTH MAINTENANCE 05/03/18 [History Last Taken 12/13/21] magnesium oxide 400 mg PO BID SUPPLEMENT 05/03/18 [History Last Taken 12/13/21] nitroglycerin 0.4 mg sublingual tablet 0.4 mg sublingual Q5-15M PRN chest pain 05/03/18 [History Last Taken Unknown] omeprazole 20 mg tablet,delayed release 20 mg PO DAILY PRN PRN Indigestion 01/01/19 [History Last Taken 12/13/21] ferrous sulfate 325 mg (65 mg iron) tablet (iron) 325 mg PO BID supplement 11/09/20 [History Last Taken 12/13/21] sertraline 50 mg tablet 50 mg PO DAILY mood 11/09/20 [History Last Taken 12/13/21] amiodarone 200 mg tablet 100 mg PO DAILY heart 11/19/20 [History Last Taken 12/13/21] apixaban 5 mg tablet 5 mg PO BID blood thinner 11/19/20 [History Last Taken 12/13/21] rosuvastatin 10 mg tablet (Crestor) 10 mg PO QHS cholesterol 11/19/20 [History Last Taken 12/12/21] albuterol sulfate 2.5 mg/3 mL (0.083 %) solution for nebulization 2.5 mg inhalation PRN PRN COPD 11/23/20 [History Last Taken 12/13/21] ascorbic acid (vitamin C) 500 mg capsule,extended release (Vitamin C) 500 mg PO DAILY supplement 11/23/20 [History Last Taken 12/13/21] furosemide 80 mg tablet (Lasix) 40 mg PO BID edema 12/21/20 [History Last Taken 12/13/21] fluticasone propionate 50 mcg/actuation nasal spray,suspension 2 spray intranasal DAILY ALLERGIES #16 grams 04/06/21 [Rx Last Taken 12/13/21] glycopyrrolate 9 mcg-formoterol 4.8 mcg HFA aerosol inhaler (Bevespi Aerosphere) 2 puff inhalation BID PRN SOB #3 ea 07/12/21 [Rx Last Taken 12/12/21] carvedilol 6.25 mg tablet (Coreg) 6.25 mg PO BID heart 11/04/21 [History Last Taken 12/13/21] gabapentin 100 mg capsule 200 mg PO QHS restless leg 11/04/21 [History Last Taken 12/12/21] midodrine 10 mg tablet 10 mg PO ONCE bp 11/04/21 [History Last Taken 12/13/21] vericiguat 2.5 mg tablet (Verquvo) 5 mg PO DAILY heart 11/04/21 [History Last Taken 12/13/21] azithromycin 250 mg tablet 250 mg PO DAILY congestion 12/13/21 [History Last Taken 12/13/21] guaifenesin 600 mg tablet, extended release 12 hr (Mucinex) 1,200 mg PO BID congestion 12/13/21 [History Last Taken 12/13/21] levothyroxine 50 mcg tablet 50 mcg PO DAILY thyroid 12/13/21 [History Last Taken 12/13/21] montelukast 10 mg tablet 10 mg PO DAILY congestion 12/13/21 [History Last Taken 12/13/21] vitamin B complex-vitamin C-folic acid 0.8 mg tablet (Tawanna-Laura) 1 tab PO DAILY supplement 12/13/21 [History Last Taken 12/12/21] Allergy/AdvReac Type Severity Reaction Status Date / Time Penicillins Allergy Severe Rash, 105 Verified 12/13/21 15:45 temp amlodipine Allergy itching Verified 12/13/21 15:45 and rash prednisone Allergy Other Verified 12/13/21 15:45 aspirin AdvReac Mild rash Verified 12/13/21 15:45 Family History Mother , 84 y.o. Hypertension CVA (cerebral vascular accident) Father , 70 y.o. Heart disease Hodgkin disease Sister , 72 y.o. Heart disease Surgical History H/O left cataract extraction History of cardiac catheterization History of colonoscopy History of coronary artery stent placement History of heart artery stent History of heart surgery History of knee replacement procedure of left knee History of open heart surgery (~08/2020) History of total right knee replacement S/P arteriovenous (AV) fistula repair (~12/2020) Social History household members: spouse housing: house pets and animals: No Smoking Status: Former smoker second hand exposure: No alcohol intake: current alcohol intake frequency: holidays/special occasions only EXAM Physical Exam Const Vital Signs: 12/13/21 15:44 12/13/21 16:05 12/13/21 16:15 Temperature 96.9 F L Temperature Source Temporal Pulse Rate 74 Respiratory Rate 16 Respiratory Pattern Normal Blood Pressure 103/63 Blood Pressure [Lying] Blood Pressure [Sitting (for 1 minute prior to obtaining)] Blood Pressure Mean 76 Blood Pressure Mean [Lying] Blood Pressure Mean [Sitting (for 1 minute prior to obtaining)] Pulse Ox 100 Oxygen Delivery Method Nasal Cannula Room Air Oxygen Flow Rate (L/min) 5 12/13/21 16:15 12/13/21 17:11 12/13/21 18:20 Temperature Temperature Source Pulse Rate Respiratory Rate Respiratory Pattern Blood Pressure Blood Pressure [Lying] 96/31 L Blood Pressure [Sitting (for 1 minute prior to obtaining)] 104/65 Blood Pressure Mean Blood Pressure Mean [Lying] 52 Blood Pressure Mean [Sitting (for 1 minute prior to obtaining)] 78 Pulse Ox 96 96 Oxygen Delivery Method Room Air Room Air Oxygen Flow Rate (L/min) Positive well nourished General Appearance ED: NAD and pallor HEENT Reports moist mucous membranes Negative for trauma Eyes PERRL and EOMs intact bilaterally General Eye ED: Yes pale conjunctiva; Negative for scleral icterus Chest Wall inspection of chest normal Resp normal respiratory effort and clear to auscultation bilaterally GI normal to inspection, nondistended, normoactive bowel sounds Neuro oriented x3 and CN's II-XII intact bilaterally Sensorium / Orientation: alert Motor Exam: strength 5/5 throughout Psych mental status grossly normal Skin no rashes or lesions noted and no wounds General Skin Exam: pallor; Negative for jaundice MDM MDM MDM Narrative Medical decision making narrative: Patient presenting with lightheadedness and generalized weakness. He states he has had dark stools. His hemoglobin was 5.0 earlier today. Here in the ER at 5.5. White blood cell count is normal at 7.2. This is a significant change from his previous hemoglobin levels. Patient typed, crossmatched for 2 units. Patient is normotensive. I attempted to do orthostatic vital signs but the patient is too lightheaded to do this. Creatinine at baseline due to chronic kidney disease. Hemoccult positive. Chest x-ray on my interpretation shows small bilateral pleural effusions and cardiomegaly with mild pulmonary Vascular congestion. Patient is on his baseline oxygen. Radiologist interprets is that he agrees. He also states there may be a left lower lobe infiltrate. I suspect that if the patient's white blood cell count is normal and he is not having any worsening shortness of breath except for with exertion this is likely due to his hemoglobin being low. EKG on my interpretation shows a sinus rhythm with a ventricular to 73 bpm with first-degree AV block. There are occasional PVCs. He states he feels otherwise well. I spoke with Dr. Mohr who recommended Protonix twice daily and holding his Eliquis. Spoke with the hospitalist for admission. Impression: 1. Acute blood loss anemia 2. GI bleed 3. Lightheadedness 4. Dyspnea Lab Data Attestation: I reviewed the patient's lab results. Labs: Laboratory Results - last 24 hr 12/13/21 12/13/21 12/13/21 16:00 16:00 16:00 WBC 7.2 RBC 1.82 L Hgb 5.5 L* Hct 18.5 L MCV 101.6 H MCH 30.2 MCHC 29.7 L RDW Std Deviation 68.2 H RDW Coeff of Nick 18.6 H Plt Count 236 MPV 8.9 Immature Gran % (Auto) 0.300 Neut % (Auto) 75.1 H Lymph % (Auto) 7.6 L [place] % (Auto) 10.6 H Eos % (Auto) 5.4 H Baso % (Auto) 1.0 Absolute Neuts (auto) 5.4 Absolute Lymphs (auto) 0.55 L Nucleated RBC % 0 Differential Comment SCANNED Diff Path Review May foll Hypochromasia 1+ Anisocytosis 1+ Sodium 137 Potassium 3.4 L Chloride 97 L Carbon Dioxide 36.0 H Anion Gap 4 L BUN 30 H Creatinine 2.57 H Estim Creat Clear Calc 23.22 Est GFR (MDRD) Af Amer 32 L Est GFR (MDRD) Non-Af 26 L BUN/Creatinine Ratio 11.7 Glucose 104 Calcium 8.5 Troponin I High Sens Blood Type AB POSITIVE Antibody Screen NEGATIVE Crossmatch See Detail 12/13/21 16:00 WBC RBC Hgb Hct MCV MCH MCHC RDW Std Deviation RDW Coeff of Nick Plt Count MPV Immature Gran % (Auto) Neut % (Auto) Lymph % (Auto) [place] % (Auto) Eos % (Auto) Baso % (Auto) Absolute Neuts (auto) Absolute Lymphs (auto) Nucleated RBC % Differential Comment Diff Path Review Hypochromasia Anisocytosis Sodium Potassium Chloride Carbon Dioxide Anion Gap BUN Creatinine Estim Creat Clear Calc Est GFR (MDRD) Af Amer Est GFR (MDRD) Non-Af BUN/Creatinine Ratio Glucose Calcium Troponin I High Sens Cancelled Blood Type Antibody Screen Crossmatch Radiography Diagnostic Testing: Clinical Impression(s) from Imaging Studies Chest X-Ray 12/13/21 17:49 IMPRESSION: 1. Moderate cardiomegaly with borderline heart failure. 2. Small bilateral costophrenic angle pleural effusions. 3. A minimal left lower lobe alveolar infiltrative process may be present. Electronically Signed: Malachi Barth MD at 18:15 EDT , Discharge Plan Triage Chief Complaint: Abn Labs ED Provider: Jaya Mendez Dx/Rx/DC Orders Primary Care Provider: Zack Stacy
[2021-12-13 17:44] LABS: Absolute Lymphocyte Count 0.55 X10^3/uL (0.83-4.51); Absolute Neutrophil Count 5.4 X10^3/uL (2.0-7.7); Anion Gap 4 (5-15); BUN 30 mg/dL (7-18); BUN/Creat Ratio 11.7 RATIO (10-20); Basophil# 0.07 X10^3/uL; Calcium,Total 8.5 mg/dL (8.5-10.1); Chloride 97 mmol/L (98-107); Creatinine, Serum 2.57 mg/dL (0.70-1.30); EST Glomerular Filtration Rate 26 mL/min (>60); Eosinophil# 0.39 X10^3/uL; Eosinophils% 5.4 % (0-5); Est Glom Filt Rate - Afr Amer 32 mL/min (>60); Estimated Creatinine Clearance 23.22 ml/min; Glucose 104 mg/dL (74-106); Hematocrit 18.5 % (40-54); Lymphocyte # 0.55 X10^3/ul (0.83-4.51); Lymphocyte % 7.6 % (19-41); Mean Corp Hgb Conc 29.7 g/dL (32-36); Mean Corpuscular Hgb 30.2 pg (27.0-32.0); Mean Corpuscular Volume 101.6 fL (80-94); Mean Platelet Vol. 8.9 fl (6.2-12.0); Monocyte# 0.76 X10^3/uL; Monocyte% 10.6 % (0-10); NRBC Flagged by Analyzer 0 % (0-5); Neutrophil # 5.41 X10^3/uL (2.7-7.7); Neutrophil % 75.1 % (47-70); POSITIVE COUNT YES; POSITIVE DIFFERENTIAL YES; POSITIVE MORPHOLOGY YES; Platelet Count 236 K/mm3 (150-450); Potassium 3.4 mmol/L (3.5-5.1); RBC Distribution Width CV 18.6 % (11.6-14.6); RBC Distribution Width SD 68.2 fl (35.1-43.9); Red Blood Count 1.82 M/mm3 (4.6-6.2); Sodium Level 137 mmol/L (136-145); White Blood Count 7.2 K/mm3 (4.4-11.0)
--- NOTE | 2021-12-13 17:49 | RAD_ITS ---
STUDY: PORTABLE AP UPRIGHT CHEST X-RAY OF 1747 HOURS ON 12/13/2021 REASON FOR EXAM: 76-year-old male with dyspnea. TECHNIQUE: A single view portable AP upright chest x-ray was performed. COMPARISON: 07/02/2021. FINDINGS: Mild demineralization. Previous sternal thoracotomy. Moderate cardiomegaly with borderline heart failure. Small bilateral costophrenic angle pleural effusions are present. A minimal left lower lobe alveolar infiltrative process may be present. RAD/Chest 1 View (Portable) IMPRESSION: 1. Moderate cardiomegaly with borderline heart failure. 2. Small bilateral costophrenic angle pleural effusions. 3. A minimal left lower lobe alveolar infiltrative process may be present. Electronically Signed: Malachi Barth MD at 18:15 EDT ,
[2021-12-13 17:51] LABS: Hemoglobin 5.5 g/dL (13.0-16.5)
[2021-12-13 17:52] LABS: Differential Indicated SCAN CRITERIA MET
[2021-12-13 18:40] LABS: Anisocytosis 1+; Differential Comment SCANNED; Hypochromasia 1+
--- NOTE | 2021-12-13 18:55 | HP.PCM.HOS_ITS ---
HPI - General General Date of Admission: 12/13/21 Date of Service: 12/13/21 Chief Complaint: Weak, dyspnea, abnormal Hgb at HD 5.5, referred to ED. HPI Narrative The patient is an 83 y/o M w/ PMHx: ESRD on HD MWF with HD on day of presentati on, COPD w/ Chronic Hypoxic Respiratory Failure (4-5L NC baseline), AOCD/Chronic anemia/Fe deficiency anemia requiring prior PRBC transfusions, HTN, HLD, GERD, MARCELO, CAD s/p CABG and PCI, PAF, Anxiety and Depression, Former tobacco use, Hypothyroidism who presents to the [facility] ED on 12/13/21 with history of potentially 3-4 weeks of ongoing dark black appearing stools with no specific abdominal cramping or pain however over the last 2 to 3 days progressively worsening fatigue, malaise, dyspnea worse with exertion as well as lightheaded and dizziness worse with any positional changes especially on day of presentation with noted abnormal labs at dialysis on day of presentation prompting referral to the ED for evaluation. Work-up in the ED included T96.9, heart rate 74, BP 103/63, not marked appearing orthostatic vital signs however patient was unable to complete them secondary to debility with significant lightheadedness and dizziness, 100% on 5 L nasal cannula with chronic usage of 4 to 5 L baseline, CBC with WC 7.2, hemoglobin 5.5 similar to earlier in the day at 1600 and prior to this 07/04/2021 hemoglobin 8.1, platelet 236 with lymphopenia, BMP with potassium 3.4, chloride 97, carbon dioxide 36, BUN/creatinine 30/2.57, guaiac occult positive troponin, chest x-ray with moderate cardiomegaly with borderline heart failure, small bilateral costophrenic angle pleural effusions, left lower lobe alveolar possible atelectasis versus infiltrate, pending upon requested evaluation of patient, type and cross initiated per ED physician. In the ED patient ministered Protonix 40 mg IV x1. In the ED patient ordered 2 u PRBC. ED discussed case with FARIDA Conway who noted intention for AM endoscopy and requested ongoing protonix and hold on his anticoagulation. [facility] Medical History (Updated 12/13/21 @ 20:[address] Mercedes Lancaster MD) Abnormal chest CT Anemia Anxiety Arthritis Back pain BPH (benign prostatic hyperplasia) Congestive heart failure (CHF) COPD (chronic obstructive pulmonary disease) Coronary artery disease involving coronary bypass graft CPAP (continuous positive airway pressure) dependence Depression Emphysema, unspecified Erectile dysfunction ESRD (end stage renal disease) Former smoker GERD (gastroesophageal reflux disease) Gout High cholesterol History of atrial fibrillation History of edema History of heart attack HLD (hyperlipidemia) Hypertension Lumbar disc disease with radiculopathy Obesity On home oxygen therapy MARCELO (obstructive sleep apnea) Psychosexual dysfunction with inhibited sexual excitement Sleep apnea Home Medications allopurinol 100 mg tablet 100 mg PO DAILY GOUT 05/03/18 [History Last Taken 12/13/21] aspirin 81 mg chewable tablet 81 mg PO DAILY HEALTH MAINTENANCE 05/03/18 [History Last Taken 12/13/21] magnesium oxide 400 mg PO BID SUPPLEMENT 05/03/18 [History Last Taken 12/13/21] nitroglycerin 0.4 mg sublingual tablet 0.4 mg sublingual Q5-15M PRN chest pain 05/03/18 [History Last Taken Unknown] omeprazole 20 mg tablet,delayed release 20 mg PO DAILY PRN PRN Indigestion 01/01/19 [History Last Taken 12/13/21] ferrous sulfate 325 mg (65 mg iron) tablet (iron) 325 mg PO BID supplement 11/09/20 [History Last Taken 12/13/21] sertraline 50 mg tablet 50 mg PO DAILY mood 11/09/20 [History Last Taken 12/13/21] amiodarone 200 mg tablet 100 mg PO DAILY heart 11/19/20 [History Last Taken 12/13/21] apixaban 5 mg tablet 5 mg PO BID blood thinner 11/19/20 [History Last Taken 12/13/21] rosuvastatin 10 mg tablet (Crestor) 10 mg PO QHS cholesterol 11/19/20 [History Last Taken 12/12/21] albuterol sulfate 2.5 mg/3 mL (0.083 %) solution for nebulization 2.5 mg inhalation PRN PRN COPD 11/23/20 [History Last Taken 12/13/21] ascorbic acid (vitamin C) 500 mg capsule,extended release (Vitamin C) 500 mg PO DAILY supplement 11/23/20 [History Last Taken 12/13/21] furosemide 80 mg tablet (Lasix) 40 mg PO BID edema 12/21/20 [History Last Taken 12/13/21] fluticasone propionate 50 mcg/actuation nasal spray,suspension 2 spray intranasal DAILY ALLERGIES #16 grams 04/06/21 [Rx Last Taken 12/13/21] glycopyrrolate 9 mcg-formoterol 4.8 mcg HFA aerosol inhaler (Bevespi Aerosphere) 2 puff inhalation BID PRN SOB #3 ea 07/12/21 [Rx Last Taken 12/12/21] carvedilol 6.25 mg tablet (Coreg) 6.25 mg PO BID heart 11/04/21 [History Last Taken 12/13/21] gabapentin 100 mg capsule 200 mg PO QHS restless leg 11/04/21 [History Last Taken 12/12/21] midodrine 10 mg tablet 10 mg PO ONCE bp 11/04/21 [History Last Taken 12/13/21] vericiguat 2.5 mg tablet (Verquvo) 5 mg PO DAILY heart 11/04/21 [History Last Taken 12/13/21] azithromycin 250 mg tablet 250 mg PO DAILY congestion 12/13/21 [History Last Taken 12/13/21] guaifenesin 600 mg tablet, extended release 12 hr (Mucinex) 1,200 mg PO BID congestion 12/13/21 [History Last Taken 12/13/21] levothyroxine 50 mcg tablet 50 mcg PO DAILY thyroid 12/13/21 [History Last Taken 12/13/21] montelukast 10 mg tablet 10 mg PO DAILY congestion 12/13/21 [History Last Taken 12/13/21] vitamin B complex-vitamin C-folic acid 0.8 mg tablet (Tawanna-Laura) 1 tab PO DAILY supplement 12/13/21 [History Last Taken 12/12/21] Allergy/AdvReac Type Severity Reaction Status Date / Time Penicillins Allergy Severe Rash, 105 Verified 12/13/21 15:45 temp amlodipine Allergy itching Verified 12/13/21 15:45 and rash prednisone Allergy Other Verified 12/13/21 15:45 aspirin AdvReac Mild rash Verified 12/13/21 15:45 Family History Mother , 84 y.o. Hypertension CVA (cerebral vascular accident) Father , 70 y.o. Heart disease Hodgkin disease Sister , 72 y.o. Heart disease Surgical History H/O left cataract extraction History of cardiac catheterization History of colonoscopy History of coronary artery stent placement History of heart artery stent History of heart surgery History of knee replacement procedure of left knee History of open heart surgery (~08/2020) History of total right knee replacement S/P arteriovenous (AV) fistula repair (~12/2020) Social History household members: spouse housing: house pets and animals: No Smoking Status: Former smoker second hand exposure: No alcohol intake: current alcohol intake frequency: holidays/special occasions only ROS ROS Narrative Admission Review of Systems: CONSTITUTIONAL: No weight loss, fever, chills, + weakness or fatigue. HEENT: + LH/dizziness. Eyes: No visual loss, blurred vision, double vision or yellow sclerae. Ears, Nose, Throat: No hearing loss, sneezing, congestion, runny nose or sore throat. SKIN: No rash or itching, lesions, wounds. CARDIOVASCULAR: No chest pain, chest pressure or chest discomfort, palpitations, edema, orthopnea, syncopal events. RESPIRATORY: + shortness of breath, No cough or sputum, wheezing, hemoptysis. GASTROINTESTINAL:+ Black stools, No anorexia, nausea, vomiting, abdominal pain, BRBPR. GENITOURINARY: No dysuria, frequency, urgency or retention. NEUROLOGICAL: + LH/dizziness. No headache, paralysis, ataxia, numbness or tingling in the extremities, focal weakness, change in bowel or bladder control, seizure. MUSCULOSKELETAL: + muscle, back pain, joint pain or stiffness. HEMATOLOGIC:+ anemia, bleeding or bruising. LYMPHATICS: No enlarged nodes. No history of splenectomy. PSYCHIATRIC: + history of depression or anxiety. ENDOCRINOLOGIC: No reports of sweating, cold or heat intolerance. No polyuria or polydipsia. ALLERGIES: + history of rhinitis. Vital Signs Vital Signs Vital Signs: 12/13/21 15:44 12/13/21 16:05 12/13/21 16:15 Temperature 96.9 F L Temperature Source Temporal Pulse Rate 74 Respiratory Rate 16 Respiratory Pattern Normal Blood Pressure 103/63 Blood Pressure [Lying] Blood Pressure [Sitting (for 1 minute prior to obtaining)] Blood Pressure Mean 76 Blood Pressure Mean [Lying] Blood Pressure Mean [Sitting (for 1 minute prior to obtaining)] Pulse Ox 100 Oxygen Delivery Method Nasal Cannula Room Air Oxygen Flow Rate (L/min) 5 12/13/21 16:15 12/13/21 17:11 12/13/21 18:20 Temperature Temperature Source Pulse Rate Respiratory Rate Respiratory Pattern Blood Pressure Blood Pressure [Lying] 96/31 L Blood Pressure [Sitting (for 1 minute prior to obtaining)] 104/65 Blood Pressure Mean Blood Pressure Mean [Lying] 52 Blood Pressure Mean [Sitting (for 1 minute prior to obtaining)] 78 Pulse Ox 96 96 Oxygen Delivery Method Room Air Room Air Oxygen Flow Rate (L/min) Weight Weight: 194 lb Body Mass Index (BMI) 30.4 Physical Exam Narrative Physical Examination: General: Awake, alert, oriented x 3 and cooperative, seated upright in the ED bed, fatigued, denies any current lightheadedness or dizziness but notes if he moves or with recent orthostatic vital sign attempts he has significant symptoms. Skin: Mildly pale color, normal turgor, no icterus, no cyanosis except occasional staged ecchymoses. HEENT: AT/NC, EOMI, PERRLA, mildly dry MM, no carotid bruits or JVD noted. Lungs: Diminished, greater bases, moderate effort, no evidence of any distress, occasional end expiratory wheeze, no rales or rhonchi. Heart: Currently regular rate and rhythm; no gallop, rub audible. Abdomen: Soft, obese, NTTP, ND, mildly hyperactive BS, no HSM. Extremities: No cyanosis, clubbing, or edema.+ LUE thrill. Neurological: Patient awake, alert, oriented as noted, cognitive function appears based intact; pupils equally reactive to light and accommodation, cranial nerves II-XII grossly normal, moving all 4 extremities, no focal deficits, strength severely decreased secondary to acute presentation. Psychiatric: Affect appears fatigued, no acute evidence of depressive or anxiety feelings. Results Lab / Micro Data Result Diagrams: 12/13/21 16:00 12/13/21 16:00 Labs: Laboratory Results - last 24 hr 12/13/21 16:00: WBC 7.2, RBC 1.82 L, Hgb 5.5 L*, Hct 18.5 L, MCV 101.6 H, MCH 30.2, MCHC 29.7 L, RDW Std Deviation 68.2 H, RDW Coeff of Nick 18.6 H, Plt Count 236, MPV 8.9, Immature Gran % (Auto) 0.300, Neut % (Auto) 75.1 H, Lymph % (Auto) 7.6 L, [place] % (Auto) 10.6 H, Eos % (Auto) 5.4 H, Baso % (Auto) 1.0, Absolute Neuts (auto) 5.4, Absolute Lymphs (auto) 0.55 L, Nucleated RBC % 0, Differential Comment SCANNED, Diff Path Review May foll, Hypochromasia 1+, Anisocytosis 1+ 12/13/21 16:00: Sodium 137, Potassium 3.4 L, Chloride 97 L, Carbon Dioxide 36.0 H, Anion Gap 4 L, BUN 30 H, Creatinine 2.57 H, Estim Creat Clear Calc 23.22, Est GFR (MDRD) Af Amer 32 L, Est GFR (MDRD) Non-Af 26 L, BUN/Creatinine Ratio 11.7, Glucose 104, Calcium 8.5 12/13/21 16:00: Blood Type AB POSITIVE, Antibody Screen NEGATIVE, Crossmatch See Detail Micro: Microbiology 12/13/21 17:40 Stool Stool Occult Blood (ANALIA) - Final Occult Blood Positive Radiology Impression Chest X-Ray 12/13/21 17:49 IMPRESSION: 1. Moderate cardiomegaly with borderline heart failure. 2. Small bilateral costophrenic angle pleural effusions. 3. A minimal left lower lobe alveolar infiltrative process may be present. Electronically Signed: Malachi Barth MD at 18:15 EDT , Assessment & Plan Assessment/Plan (1) GI bleed: PLAN: Plan The patient is an 83 y/o M w/ PMHx: ESRD on HD MWF with HD on day of presentation, COPD w/ Chronic Hypoxic Respiratory Failure (4-5L NC baseline), AOCD/Chronic anemia/Fe deficiency anemia requiring prior PRBC transfusions, HTN, HLD, GERD, MARCELO, CAD s/p CABG and PCI, PAF, Anxiety and Depression, Former tobacco use, Hypothyroidism who presents to the [facility] ED on 12/13/21 with history of potentially 3-4 weeks of ongoing dark black appearing stools with no specific abdominal cramping or pain however over the last 2 to 3 days progressively worsening fatigue, malaise, dyspnea worse with exertion as well as lightheaded and dizziness worse with any positional changes especially on day of presentation with noted abnormal labs at dialysis on day of presentation prompting referral to the ED for evaluation. #1. Acute GI Bleed w/ resultant Acute Blood Loss Anemia on Chronic/AOCD/Fe deficiency anemia with associated lightheadedness/dizziness, mild hypotension: Will admit to PCU, continue planned ED initiated 2 u PRBC, will obtain serial H+H, maintain on IV PPI, GI consulted, Dr. Mohr aware and noted planned AM evaluation and endoscopy. Will closely monitor given low BP and administer IV lasix given still makes some urine in between PRBC units if any onset or concern overload, holding hypertensive regimen given low BP, continue midodrine. #2. Chronic Systolic CHF: 07/02/21 echocardiogram with EF 25 to 30%, severe LV systolic dysfunction, mild MR, RVSP 39.9 mmHg with no significant change from prior echo 04/2020, holding aspirin, Eliquis given acute GI bleed is noted number 1 and per discussion with gastroenterology per ED, continue statin therapy, temporarily as noted holding Coreg, Lasix, not on MARITA inhibitor/ARB. #3. CAD: s/p PCI and CABG, holding asa and eliquis temporarily given acute presentation #1, add back once cleared per GI, continue statin, holding BB given low BP as noted, not on MARITA/ARB likely secondary to underlying renal disease. #4. Hypertension: As noted patient with low BP associate with acute presentation, suspect this is progressing and acutely worsened, may add back regimen once BP improves following PRBC administration as noted low threshold to use IV Lasix. In between PRBC pending response. #5. Hyperlipidemia: We will continue patient on statin therapy. #6. Hypothyroidism: We will continue patient home levothyroxine regimen. #7. ESRD: Patient following w/ Dr. Fam, HD MWF, will request consultation with Dr. Gildardo oro given Dr. Fam does not come to [facility]. Patient did have HD on day of presentation. #8. PAF: Holding anticoagulant therapy as noted given acute presentation #1, holding Coreg given low BP, continue amiodarone. #9. Chronic COPD with chronic hypoxic respiratory failure with allergic rhinitis: We will continue patient home chronic oxygen supplementation normally using 4 to 5 L nasal cannula, from current list not on chronic inhaler, given PAF history will hold on addition of DuoNeb therapy, continue PRN albuterol, HOB, IS parameters, continue home montelukast as well as fluticasone regimen. #10. Anxiety and depression: We will continue patient home sertraline regimen. #11. GERD: We will maintain on IV PPI as noted above #12. MARCELO: BiPAP nightly. #13. DVT prophylaxis: SCDs, holding home eliquis given acute presentation #1. #14. CODE status: Patient INDU is his who is present and living will is currently in place. Discussed CODE status at length including difference between FULL code, DNR-CCA and DNR-CC status. Following discussions about the differences in these status, requested DNR-CCA, no intubation. He was in the hospice program but revoked to be admitted. Advanced Care Planning Face to Face Time: 16 minutes. Charges/Coding Visit Charges Inpatient E&M: 77912 Init Hosp L3 Procedures Hospitalists Procedures: 54193 Advncd Care Plan 30 Min
[2021-12-13 20:28] LABS: Magnesium 2.2 mg/dL (1.6-2.6); Phosphorus 2.3 mg/dL (2.5-4.9)
[2021-12-13] MEDS: Atorvastatin Calcium 20 MG Tablet PO (22:41)
[2021-12-13] MEDS: Potassium Chloride Oral Tablet 20 MEQ PO (22:41)
[2021-12-13] MEDS: Gabapentin 100 MG Capsule 200 MG PO (22:41)
--- NOTE | 2021-12-13 23:00 | CON.PCM_ITS ---
Assessment & Plan Assessment/Plan (1) GI bleed: PLAN: The differential diagnosis for her acute on chronic blood loss is GI bleed secondary to anticoagulation with Eliquis therapy and aspirin. He should undergo an upper endoscopy and colonoscopy. He was explained alternatives, risk, benefits including outstanding bleeding, infection, sepsis, perforation, need for emergent . He will have an ASA of 3. HPI Consult Data Date of Consult: 12/13/21 HPI Narrative Reason for Consultation: Anemia HPI Narrative: ANGIE SINGH, is a 76-year-old male presenting with fatigue, shortness of breath, generalized weakness.? He states he is having mild over the last couple few days.? Patient states he was at dialysis today which she does on Monday, Monday, Monday for end-stage renal disease.? Patient states he was told his hemoglobin was low at 5.? Patient states he has a history of anemia and needing blood transfusion.? He was previously diagnosed with anemia chronic disease and he had a history of an upper GI bleed but he does not know what the upper GI b leed was from. He states he has been transfused and sent home.? Patient is on Eliquis.? He denies chest pain.? He has no fever, chills.? Patient is on 5 L of oxygen currently.? He states that he is normally on 4 to 5 L at home for COPD history.? He also has history of CHF. All 60 review of systems are negative except as per positive mentioned HPI [facility] Medical History (Updated 12/14/21 @ 10:40 by CARLOS Aguilar) Abnormal chest CT Anemia Anxiety Arthritis Back pain BPH (benign prostatic hyperplasia) Congestive heart failure (CHF) COPD (chronic obstructive pulmonary disease) Coronary artery disease involving coronary bypass graft CPAP (continuous positive airway pressure) dependence Depression Emphysema, unspecified Erectile dysfunction ESRD (end stage renal disease) Former smoker GERD (gastroesophageal reflux disease) Gout High cholesterol History of atrial fibrillation History of edema History of heart attack HLD (hyperlipidemia) Hypertension Lumbar disc disease with radiculopathy Obesity On home oxygen therapy MARCELO (obstructive sleep apnea) Psychosexual dysfunction with inhibited sexual excitement Sleep apnea Home Medications allopurinol 100 mg tablet 100 mg PO DAILY GOUT 05/03/18 [History Last Taken 12/13/21] aspirin 81 mg chewable tablet 81 mg PO DAILY HEALTH MAINTENANCE 05/03/18 [History Last Taken 12/13/21] magnesium oxide 400 mg PO BID SUPPLEMENT 05/03/18 [History Last Taken 12/13/21] nitroglycerin 0.4 mg sublingual tablet 0.4 mg sublingual Q5-15M PRN chest pain 05/03/18 [History Last Taken Unknown] omeprazole 20 mg tablet,delayed release 20 mg PO DAILY PRN PRN Indigestion 01/01/19 [History Last Taken 12/13/21] ferrous sulfate 325 mg (65 mg iron) tablet (iron) 325 mg PO BID supplement 11/09/20 [History Last Taken 12/13/21] sertraline 50 mg tablet 50 mg PO DAILY mood 11/09/20 [History Last Taken 12/13/21] amiodarone 200 mg tablet 100 mg PO DAILY heart 11/19/20 [History Last Taken 12/13/21] apixaban 5 mg tablet 5 mg PO BID blood thinner 11/19/20 [History Last Taken 12/13/21] rosuvastatin 10 mg tablet (Crestor) 10 mg PO QHS cholesterol 11/19/20 [History Last Taken 12/12/21] albuterol sulfate 2.5 mg/3 mL (0.083 %) solution for nebulization 2.5 mg inhalation PRN PRN COPD 11/23/20 [History Last Taken 12/13/21] ascorbic acid (vitamin C) 500 mg capsule,extended release (Vitamin C) 500 mg PO DAILY supplement 11/23/20 [History Last Taken 12/13/21] furosemide 80 mg tablet (Lasix) 40 mg PO BID edema 12/21/20 [History Last Taken 12/13/21] fluticasone propionate 50 mcg/actuation nasal spray,suspension 2 spray intranasal DAILY ALLERGIES #16 grams 04/06/21 [Rx Last Taken 12/13/21] glycopyrrolate 9 mcg-formoterol 4.8 mcg HFA aerosol inhaler (Bevespi Aerosphere) 2 puff inhalation BID PRN SOB #3 ea 07/12/21 [Rx Last Taken 12/12/21] carvedilol 6.25 mg tablet (Coreg) 6.25 mg PO BID heart 11/04/21 [History Last Taken 12/13/21] gabapentin 100 mg capsule 200 mg PO QHS restless leg 11/04/21 [History Last Taken 12/12/21] midodrine 10 mg tablet 10 mg PO ONCE bp 11/04/21 [History Last Taken 12/13/21] vericiguat 2.5 mg tablet (Verquvo) 5 mg PO DAILY heart 11/04/21 [History Last Taken 12/13/21] azithromycin 250 mg tablet 250 mg PO DAILY congestion 12/13/21 [History Last Taken 12/13/21] guaifenesin 600 mg tablet, extended release 12 hr (Mucinex) 1,200 mg PO BID congestion 12/13/21 [History Last Taken 12/13/21] levothyroxine 50 mcg tablet 50 mcg PO DAILY thyroid 12/13/21 [History Last Taken 12/13/21] montelukast 10 mg tablet 10 mg PO DAILY congestion 12/13/21 [History Last Taken 12/13/21] vitamin B complex-vitamin C-folic acid 0.8 mg tablet (Tawanna-Laura) 1 tab PO DAILY supplement 12/13/21 [History Last Taken 12/12/21] Allergy/AdvReac Type Severity Reaction Status Date / Time Penicillins Allergy Severe Rash, 105 Verified 12/13/21 15:45 temp amlodipine Allergy itching Verified 12/13/21 15:45 and rash prednisone Allergy Other Verified 12/13/21 15:45 aspirin AdvReac Mild rash Verified 12/13/21 15:45 Family History Mother , 84 y.o. Hypertension CVA (cerebral vascular accident) Father , 70 y.o. Heart disease Hodgkin disease Sister , 72 y.o. Heart disease Surgical History H/O left cataract extraction History of cardiac catheterization History of colonoscopy History of coronary artery stent placement History of heart artery stent History of heart surgery History of knee replacement procedure of left knee History of open heart surgery (~08/2020) History of total right knee replacement S/P arteriovenous (AV) fistula repair (~12/2020) Social History household members: spouse housing: house pets and animals: No Smoking Status: Former smoker second hand exposure: No alcohol intake: current alcohol intake frequency: holidays/special occasions only ROS ROS Narrative As in HPI and past medical history Physical Exam Const alert and oriented x3 HEENT head/scalp atraumatic Eyes EOMs intact bilaterally Neck supple Resp Resp Narrative: Coarse breath sounds bilaterally with scattered wheezes Cardio regular rate and regular rhythm GI soft to palpation, non-tender and non-distended Extremity Extremity Narrative: 1-2+ BLE edema, R slightly > left which pt reports is chronic Neuro moves all extremities Psych affect normal Lab / Micro Data Result Diagrams: 12/14/21 05:03 12/14/21 05:03 Labs: Laboratory Results - last 24 hr 12/13/21 16:00: Differential Comment SCANNED, Diff Path Review July foll, Hypochromasia 1+, Anisocytosis 1+ 12/13/21 16:00: Blood Type AB POSITIVE, Antibody Screen NEGATIVE, Crossmatch See Detail 12/13/21 16:00: Troponin I High Sens Cancelled 12/13/21 16:00: Phosphorus 2.3 L, Magnesium 2.2 12/14/21 05:03: WBC 6.6, RBC 2.28 L, Hgb 7.0 L, Hct 21.5 L, MCV 94.3 H D, MCH 30.7, MCHC 32.6 D, RDW Std Deviation 64.2 H, RDW Coeff of Nick 19.1 H, Plt Count 217, MPV 9.1, Immature Gran % (Auto) 0.300, Neut % (Auto) 75.1 H, Lymph % (Auto) 7.7 L, [place] % (Auto) 10.9 H, Eos % (Auto) 4.9, Baso % (Auto) 1.1 H, Absolute Neuts (auto) 5.0, Absolute Lymphs (auto) 0.51 L, Nucleated RBC % 0, Anisocytosis 2+ 12/14/21 05:03: Sodium 137, Potassium 3.7, Chloride 99, Carbon Dioxide 32.0, Anion Gap 6, BUN 40 H, Creatinine 3.22 H, Estim Creat Clear Calc 18.53, Est GFR (MDRD) Af Amer 24 L, Est GFR (MDRD) Non-Af 20 L, BUN/Creatinine Ratio 12.4, Glucose 91, Calcium 8.1 L, Total Bilirubin 0.70, AST 22, ALT 19, Alkaline Phosphatase 104, Total Protein 5.8 L, Albumin 2.3 L, Globulin 3.5, Albumin/Globulin Ratio 0.7 L Micro: Microbiology 12/13/21 17:40 Stool Stool Occult Blood (ANALIA) - Final Occult Blood Positive Radiology Impression Chest X-Ray 12/13/21 17:49 IMPRESSION: 1. Moderate cardiomegaly with borderline heart failure. 2. Small bilateral costophrenic angle pleural effusions. 3. A minimal left lower lobe alveolar infiltrative process may be present. Electronically Signed: Malachi Barth MD at 18:15 EDT , Charges/Coding Visit Charges Inpatient E&M: 36167 Init Hosp L2
[2021-12-14] VITALS (22 sets, daily range): BP systolic 90–134; BP diastolic 48–60; PULSE 66–75; RESP 16–18; TEMP 36.3–36.9; O2SAT 91–100; BMI 31.3
[2021-12-14] MEDS: Midodrine HCl 5 MG Tablet 10 MG PO (02:01)
[2021-12-14 05:17] LABS: Absolute Lymphocyte Count 0.51 X10^3/uL (0.83-4.51); Basophil# 0.07 X10^3/uL; Basophil% 1.1 % (0-1); Eosinophil# 0.32 X10^3/uL; Eosinophils% 4.9 % (0-5); Hematocrit 21.5 % (40-54); Lymphocyte # 0.51 X10^3/ul (0.83-4.51); Lymphocyte % 7.7 % (19-41); Mean Corp Hgb Conc 32.6 g/dL (32-36); Mean Corpuscular Hgb 30.7 pg (27.0-32.0); Mean Corpuscular Volume 94.3 fL (80-94); Mean Platelet Vol. 9.1 fl (6.2-12.0); Monocyte# 0.72 X10^3/uL; Monocyte% 10.9 % (0-10); NRBC Flagged by Analyzer 0 % (0-5); Neutrophil # 4.95 X10^3/uL (2.7-7.7); Neutrophil % 75.1 % (47-70); POSITIVE DIFFERENTIAL YES; Platelet Count 217 K/mm3 (150-450); RBC Distribution Width CV 19.1 % (11.6-14.6); RBC Distribution Width SD 64.2 fl (35.1-43.9); Red Blood Count 2.28 M/mm3 (4.6-6.2); White Blood Count 6.6 K/mm3 (4.4-11.0)
[2021-12-14 05:26] LABS: Differential Indicated SCAN CRITERIA MET
[2021-12-14 05:39] LABS: Anisocytosis 2+
[2021-12-14 05:47] LABS: ALB/GLOB Ratio 0.7 RATIO (0.9-2.4); AST(SGOT) 22 U/L (15-37); Alanine Aminotransfer ALT/SGPT 19 U/L (16-61); Albumin, Serum 2.3 g/dL (3.2-5.0); Alkaline Phosphatase 104 U/L (45-117); Anion Gap 6 (5-15); BUN 40 mg/dL (7-18); BUN/Creat Ratio 12.4 RATIO (10-20); Calcium,Total 8.1 mg/dL (8.5-10.1); Chloride 99 mmol/L (98-107); Creatinine, Serum 3.22 mg/dL (0.70-1.30); EST Glomerular Filtration Rate 20 mL/min (>60); Est Glom Filt Rate - Afr Amer 24 mL/min (>60); Estimated Creatinine Clearance 18.53 ml/min; Globulin 3.5 g/dL (2.2-4.2); Glucose 91 mg/dL (74-106); Potassium 3.7 mmol/L (3.5-5.1); Protein, Total 5.8 g/dL (6.4-8.2); Sodium Level 137 mmol/L (136-145)
[2021-12-14] MEDS: Levothyroxine 50 MCG Tablet PO (06:38)
[2021-12-14] MEDS: 0.9% Saline Lock 10 ML Syringe IV (09:09)
[2021-12-14] MEDS: FLU VACC QS2022-23(6MOS UP)/PF 60 MCG/0.5 ML SYRINGE IM (09:09)
[2021-12-14] MEDS: Amiodarone 200 MG Tablet 100 MG PO (09:11)
[2021-12-14] MEDS: Fluticasone 0.05% 1 SPRAY NASAL.SRY 2 SPRAY NASAL (09:11)
--- NOTE | 2021-12-14 10:23 | PCM.CONS.R ---
Assessment & Plan Assessment/Plan (1) Anemia: (2) ESRD (end stage renal disease): (3) COPD (chronic obstructive pulmonary disease): PLAN: Plan Patient was admitted for further evaluation and treatment as he was noted to have a hemoglobin of 5 in the emergency room yesterday. He did receive PRBC and hemoglobin improved to 7. GI has been consulted with possibly EGD today. Patient is on pantoprazole drip. At this time there is no acute indication for CERTIFIED HAND THERAPIST. Patient did dialyze yesterday over 4 hours but did not have any fluid removed due to low hemoglobin level therefore he is likely slightly above his dry weight however no urgent need for CERTIFIED HAND THERAPIST/fluid removal today. Likely will plan for hemodialysis tomorrow over 4 hours and attempt fluid removal as patient/blood pressure tolerates. Reviewed chest x-ray. He receives midodrine predialysis and will continue as ordered. Current blood pressures acceptable, patient is not on any antihypertensives. He will receive FERMIN with dialysis tomorrow. Patient has history of end-stage COPD and is on O2 at 4 L at all times. Further orders forthcoming as hospitalization evolves, thank you for allowing us to participate in the care of Mr. Gonzalez. HPI Consult Data Date of Consult: 12/14/21 HPI Narrative HPI Narrative: ANGIE GONZALEZ, is a 76 M who presented to the emergency room yesterday as he was found to have a low hemoglobin at his dialysis unit. In the ER yesterday hemoglobin was noted to be 5.5. Patient was admitted for further evaluation and treatment. He has received 2 units of PRBC and this morning his hemoglobin is 7.0. We were consulted as patient has history of end-stage renal disease and is on hemodialysis. Patient currently dialyzes at [facility] [place] followed by Dr. Fam. Patient did receive his full dialysis session yesterday. Patient's is at bedside. Patient reports about 2 weeks ago he was noted to have low hemoglobin and received PRBC. Patient reports he has been having dark black tarry stools for the past 2-3 weeks. Patient denies any abdominal pain, nausea or vomiting. Denies any recent fevers. [facility] Medical History (Updated 12/14/21 @ 10:40 by CARLOS Aguilar) Abnormal chest CT Anemia Anxiety Arthritis Back pain BPH (benign prostatic hyperplasia) Congestive heart failure (CHF) COPD (chronic obstructive pulmonary disease) Coronary artery disease involving coronary bypass graft CPAP (continuous positive airway pressure) dependence Depression Emphysema, unspecified Erectile dysfunction ESRD (end stage renal disease) Former smoker GERD (gastroesophageal reflux disease) Gout High cholesterol History of atrial fibrillation History of edema History of heart attack HLD (hyperlipidemia) Hypertension Lumbar disc disease with radiculopathy Obesity On home oxygen therapy MARCELO (obstructive sleep apnea) Psychosexual dysfunction with inhibited sexual excitement Sleep apnea Home Medications allopurinol 100 mg tablet 100 mg PO DAILY GOUT 05/03/18 [History Last Taken 12/13/21] aspirin 81 mg chewable tablet 81 mg PO DAILY HEALTH MAINTENANCE 05/03/18 [History Last Taken 12/13/21] magnesium oxide 400 mg PO BID SUPPLEMENT 05/03/18 [History Last Taken 12/13/21] nitroglycerin 0.4 mg sublingual tablet 0.4 mg sublingual Q5-15M PRN chest pain 05/03/18 [History Last Taken Unknown] omeprazole 20 mg tablet,delayed release 20 mg PO DAILY PRN PRN Indigestion 01/01/19 [History Last Taken 12/13/21] ferrous sulfate 325 mg (65 mg iron) tablet (iron) 325 mg PO BID supplement 11/09/20 [History Last Taken 12/13/21] sertraline 50 mg tablet 50 mg PO DAILY mood 11/09/20 [History Last Taken 12/13/21] amiodarone 200 mg tablet 100 mg PO DAILY heart 11/19/20 [History Last Taken 12/13/21] apixaban 5 mg tablet 5 mg PO BID blood thinner 11/19/20 [History Last Taken 12/13/21] rosuvastatin 10 mg tablet (Crestor) 10 mg PO QHS cholesterol 11/19/20 [History Last Taken 12/12/21] albuterol sulfate 2.5 mg/3 mL (0.083 %) solution for nebulization 2.5 mg inhalation PRN PRN COPD 11/23/20 [History Last Taken 12/13/21] ascorbic acid (vitamin C) 500 mg capsule,extended release (Vitamin C) 500 mg PO DAILY supplement 11/23/20 [History Last Taken 12/13/21] furosemide 80 mg tablet (Lasix) 40 mg PO BID edema 12/21/20 [History Last Taken 12/13/21] fluticasone propionate 50 mcg/actuation nasal spray,suspension 2 spray intranasal DAILY ALLERGIES #16 grams 04/06/21 [Rx Last Taken 12/13/21] glycopyrrolate 9 mcg-formoterol 4.8 mcg HFA aerosol inhaler (Bevespi Aerosphere) 2 puff inhalation BID PRN SOB #3 ea 07/12/21 [Rx Last Taken 12/12/21] carvedilol 6.25 mg tablet (Coreg) 6.25 mg PO BID heart 11/04/21 [History Last Taken 12/13/21] gabapentin 100 mg capsule 200 mg PO QHS restless leg 11/04/21 [History Last Taken 12/12/21] midodrine 10 mg tablet 10 mg PO ONCE bp 11/04/21 [History Last Taken 12/13/21] vericiguat 2.5 mg tablet (Verquvo) 5 mg PO DAILY heart 11/04/21 [History Last Taken 12/13/21] azithromycin 250 mg tablet 250 mg PO DAILY congestion 12/13/21 [History Last Taken 12/13/21] guaifenesin 600 mg tablet, extended release 12 hr (Mucinex) 1,200 mg PO BID congestion 12/13/21 [History Last Taken 12/13/21] levothyroxine 50 mcg tablet 50 mcg PO DAILY thyroid 12/13/21 [History Last Taken 12/13/21] montelukast 10 mg tablet 10 mg PO DAILY congestion 12/13/21 [History Last Taken 12/13/21] vitamin B complex-vitamin C-folic acid 0.8 mg tablet (Tawanna-Laura) 1 tab PO DAILY supplement 12/13/21 [History Last Taken 12/12/21] Allergy/AdvReac Type Severity Reaction Status Date / Time Penicillins Allergy Severe Rash, 105 Verified 12/13/21 15:45 temp amlodipine Allergy itching Verified 12/13/21 15:45 and rash prednisone Allergy Other Verified 12/13/21 15:45 aspirin AdvReac Mild rash Verified 12/13/21 15:45 Family History Mother , 84 y.o. Hypertension CVA (cerebral vascular accident) Father , 70 y.o. Heart disease Hodgkin disease Sister , 72 y.o. Heart disease Surgical History H/O left cataract extraction History of cardiac catheterization History of colonoscopy History of coronary artery stent placement History of heart artery stent History of heart surgery History of knee replacement procedure of left knee History of open heart surgery (~08/2020) History of total right knee replacement S/P arteriovenous (AV) fistula repair (~12/2020) Social History household members: spouse housing: house pets and animals: No Smoking Status: Former smoker second hand exposure: No alcohol intake: current alcohol intake frequency: holidays/special occasions only ROS ROS Narrative As in HPI and past medical history Physical Exam Narrative Const: Alert and oriented x3, no apparent distress Cardio: S1, S2, RRR Respiratory: Lung sounds clear anteriorly, no wheezes, rales or rhonchi noted. On O2 at 4 L Abdomen: Soft, rounded, positive bowel sounds Extremities: 1-2+ pitting edema noted bilateral lower legs AV fistula left forearm positive thrill and bruit Lab / Micro Data Result Diagrams: 12/14/21 05:03 12/14/21 05:03 Labs: Laboratory Results - last 24 hr 12/13/21 16:00: WBC 7.2, RBC 1.82 L, Hgb 5.5 L*, Hct 18.5 L, MCV 101.6 H, MCH 30.2, MCHC 29.7 L, RDW Std Deviation 68.2 H, RDW Coeff of Nick 18.6 H, Plt Count 236, MPV 8.9, Immature Gran % (Auto) 0.300, Neut % (Auto) 75.1 H, Lymph % (Auto) 7.6 L, Hunt % (Auto) 10.6 H, Eos % (Auto) 5.4 H, Baso % (Auto) 1.0, Absolute Neuts (auto) 5.4, Absolute Lymphs (auto) 0.55 L, Nucleated RBC % 0, Differential Comment SCANNED, Diff Path Review May foll, Hypochromasia 1+, Anisocytosis 1+ 12/13/21 16:00: Sodium 137, Potassium 3.4 L, Chloride 97 L, Carbon Dioxide 36.0 H, Anion Gap 4 L, BUN 30 H, Creatinine 2.57 H, Estim Creat Clear Calc 23.22, Est GFR (MDRD) Af Amer 32 L, Est GFR (MDRD) Non-Af 26 L, BUN/Creatinine Ratio 11.7, Glucose 104, Calcium 8.5 12/13/21 16:00: Blood Type AB POSITIVE, Antibody Screen NEGATIVE, Crossmatch See Detail 12/13/21 16:00: Troponin I High Sens Cancelled 12/13/21 16:00: Phosphorus 2.3 L, Magnesium 2.2 12/14/21 05:03: WBC 6.6, RBC 2.28 L, Hgb 7.0 L, Hct 21.5 L, MCV 94.3 H D, MCH 30.7, MCHC 32.6 D, RDW Std Deviation 64.2 H, RDW Coeff of Nick 19.1 H, Plt Count 217, MPV 9.1, Immature Gran % (Auto) 0.300, Neut % (Auto) 75.1 H, Lymph % (Auto) 7.7 L, Hunt % (Auto) 10.9 H, Eos % (Auto) 4.9, Baso % (Auto) 1.1 H, Absolute Neuts (auto) 5.0, Absolute Lymphs (auto) 0.51 L, Nucleated RBC % 0, Anisocytosis 2+ 12/14/21 05:03: Sodium 137, Potassium 3.7, Chloride 99, Carbon Dioxide 32.0, Anion Gap 6, BUN 40 H, Creatinine 3.22 H, Estim Creat Clear Calc 18.53, Est GFR (MDRD) Af Amer 24 L, Est GFR (MDRD) Non-Af 20 L, BUN/Creatinine Ratio 12.4, Glucose 91, Calcium 8.1 L, Total Bilirubin 0.70, AST 22, ALT 19, Alkaline Phosphatase 104, Total Protein 5.8 L, Albumin 2.3 L, Globulin 3.5, Albumin/Globulin Ratio 0.7 L Micro: Microbiology 12/13/21 17:40 Stool Stool Occult Blood (ANALIA) - Final Occult Blood Positive Radiology Impression Chest X-Ray 12/13/21 17:49 IMPRESSION: 1. Moderate cardiomegaly with borderline heart failure. 2. Small bilateral costophrenic angle pleural effusions. 3. A minimal left lower lobe alveolar infiltrative process may be present. Electronically Signed: Malachi Barth MD at 18:15 EDT ,
--- NOTE | 2021-12-14 11:11 | PN.HOSP_ITS ---
Subjective Subjective DOS 12/14/21 CC: SOB Mr. Gonzalez is a 76y/o M with hx of ESRD on HD, COPD on home O2, and CAD s/p CABG and PCI as well as pafib who presented to [facility] 12/13 with 3-4 weeks of dark black stool and worsening fatigue and weakness. Today he reports feeling like he has a little more energy after getting 2uprbc and hasn't felt quite as fatigued, also hasn't felt light headed yet today. He hasn't had any UOP since yesterday, though he has minimal output typically, does have chronic SOB which is roughly the same and chronic cough, also unchanged. Pt denies having a BM yet since admission and is unsure if his stool is still dark but has not yet noted bleeding. He denies CP, SOB, n/v, no abdominal pain noted, no headache or changes in vision, does have some swelling in LE which he reports is chronic. Denies other complaints today. Objective Data Objective Data Vital Signs: Vital Signs Temp Pulse Resp BP Pulse Ox O2 Del Method O2 Flow Rate 98.4 F 67 16 117/59 L 97 Nasal Cannula 4 12/14/21 09:00 12/14/21 09:00 12/14/21 09:00 12/14/21 09:00 12/14/21 09:00 12/14/21 09:00 12/14/21 09:00 Oxygen Flow Rate (L/min) 4 Oxygen Delivery Method Nasal Cannula Weight: 90.8 kg Body Mass Index (BMI) 31.3 Intake & Output: Intake and Output for Last 24 Hours 12/12/21 12/13/21 12/14/21 23:59 23:59 23:59 Intake Total 510 / 510 510 / 510 Output Total 0 / 0 Balance 510 / 510 510 / 510 Lab / Micro Data Result Diagrams: 12/14/21 05:03 12/14/21 05:03 Labs: Laboratory Results - last 24 hr 12/13/21 16:00: WBC 7.2, RBC 1.82 L, Hgb 5.5 L*, Hct 18.5 L, MCV 101.6 H, MCH 30.2, MCHC 29.7 L, RDW Std Deviation 68.2 H, RDW Coeff of Nick 18.6 H, Plt Count 236, MPV 8.9, Immature Gran % (Auto) 0.300, Neut % (Auto) 75.1 H, Lymph % (Auto) 7.6 L, [place] % (Auto) 10.6 H, Eos % (Auto) 5.4 H, Baso % (Auto) 1.0, Absolute Neuts (auto) 5.4, Absolute Lymphs (auto) 0.55 L, Nucleated RBC % 0, Differential Comment SCANNED, Diff Path Review May foll, Hypochromasia 1+, Anisocytosis 1+ 12/13/21 16:00: Sodium 137, Potassium 3.4 L, Chloride 97 L, Carbon Dioxide 36.0 H, Anion Gap 4 L, BUN 30 H, Creatinine 2.57 H, Estim Creat Clear Calc 23.22, Est GFR (MDRD) Af Amer 32 L, Est GFR (MDRD) Non-Af 26 L, BUN/Creatinine Ratio 11.7, Glucose 104, Calcium 8.5 12/13/21 16:00: Blood Type AB POSITIVE, Antibody Screen NEGATIVE, Crossmatch See Detail 12/13/21 16:00: Troponin I High Sens Cancelled 12/13/21 16:00: Phosphorus 2.3 L, Magnesium 2.2 12/14/21 05:03: WBC 6.6, RBC 2.28 L, Hgb 7.0 L, Hct 21.5 L, MCV 94.3 H D, MCH 30.7, MCHC 32.6 D, RDW Std Deviation 64.2 H, RDW Coeff of Nick 19.1 H, Plt Count 217, MPV 9.1, Immature Gran % (Auto) 0.300, Neut % (Auto) 75.1 H, Lymph % (Auto) 7.7 L, [place] % (Auto) 10.9 H, Eos % (Auto) 4.9, Baso % (Auto) 1.1 H, Absolute Neuts (auto) 5.0, Absolute Lymphs (auto) 0.51 L, Nucleated RBC % 0, Anisocytosis 2+ 12/14/21 05:03: Sodium 137, Potassium 3.7, Chloride 99, Carbon Dioxide 32.0, Anion Gap 6, BUN 40 H, Creatinine 3.22 H, Estim Creat Clear Calc 18.53, Est GFR (MDRD) Af Amer 24 L, Est GFR (MDRD) Non-Af 20 L, BUN/Creatinine Ratio 12.4, Glucose 91, Calcium 8.1 L, Total Bilirubin 0.70, AST 22, ALT 19, Alkaline Phosphatase 104, Total Protein 5.8 L, Albumin 2.3 L, Globulin 3.5, Albumin/Globulin Ratio 0.7 L Micro: Microbiology 12/13/21 17:40 Stool Stool Occult Blood (ANALIA) - Final Occult Blood Positive Radiography Diagnostic Testing: Radiology Impression Chest X-Ray 12/13/21 17:49 IMPRESSION: 1. Moderate cardiomegaly with borderline heart failure. 2. Small bilateral costophrenic angle pleural effusions. 3. A minimal left lower lobe alveolar infiltrative process may be present. Electronically Signed: Malachi Barth MD at 18:15 EDT , Physical Exam Const alert and oriented x3 HEENT head/scalp atraumatic Eyes EOMs intact bilaterally Neck supple Resp Resp Narrative: Coarse breath sounds bilaterally with scattered wheezes Cardio regular rate and regular rhythm GI soft to palpation, non-tender and non-distended Extremity Extremity Narrative: 1-2+ BLE edema, R slightly > left which pt reports is chronic Neuro moves all extremities Psych affect normal Assessment & Plan Assessment/Plan (1) GI bleed: PLAN: Plan Acute blood loss anemia 2/2 GI bleed on chronic macrocytic anemia/anemia of chronic disease On admit hgb was 5 and pt is 2/p 2uprbc with improving symptoms On IV PPI GI following Plan for AM eval and endoscopy Does have swelling which he feels is baseline Daily weights Pts home lasix 80mg BID held but pt reports he made minimal urine previously even with the lasix Does not appear grossly overloaded Given intermittent low BP (on midodrine) and lack of significant overload, lasix continued to be held at this time Nephro following- pt for dialysis tomorrow, will recieve FERMIN at that time as well Chronic HFrEF 07/02/21 echocardiogram with EF 25 to 30%, severe LV systolic dysfunction, mild MR, RVSP 39.9 mmHg with no significant change from prior echo 04/2020. ASA and eliquis held overnight after discussion with GI per ED d/t GI bleed h continue statin therapy Given BP currently holding cored and lasix No documented marita/arb on home med list temporarily as noted holding Coreg, Lasix, not on MARITA inhibitor/ARB. CAD s/p PCI and CABG holding asa and eliquis temporarily given acute presentation #1 add back once cleared per GI continue statin holding BB given low BP as noted not on MARITA/ARB likely secondary to underlying renal disease. Chronic COPD with chronic hypoxic respiratory failure Continue home O2 which is reported to be 4-5 LNC Pt reports using nebs at home Given breathing this AM with cough, wheezes, and coarse breath sounds will start back nebs prn albuterol Hypothyroidism We will continue patient home levothyroxine regimen. ESRD Patient following w/ Dr. Fam, HD MWF Patient did have HD on day of presentation but no fluid removed Not grossly overloaded Per nephrology HD tomorrow and he will receive FERMIN Continue midodrine PAF Holding anticoagulant therapy as noted given acute presentation #1, holding Coreg given low BP, continue amiodarone. Anxiety and depression We will continue patient home sertraline regimen. GERD We will maintain on IV PPI as noted above MARCELO BiPAP nightly. DVT prophylaxis: SCDs, holding home eliquis given acute presentation #1. Kaylen Galindo MD Time spent: 25 minutes Charges/Coding Visit Charges Inpatient E&M: 11680 [facility] Hosp L1
--- NOTE | 2021-12-14 11:40 | CASEMGMT ---
HALEY BLANK assessment: Face to Face with patient for initial transition planning/care coordination assessment. HALEY BLANK introduced self and role at [facility], pt voices understanding and consents to assessment. Pt is sitting up in bed in no distress on 4L nc. Pt is A/Ox4 and answers all questions appropriately. Pt's is at bedside and assists pt in answering questions. Care providers, pharmacy,?and demographics verified. ? Presentation: Pt sent from OP HD for low Hgb Admitting dx: Acute GI bleed, anemia PCP: [facility] Specialists: Sarwat nephangelina; James pulying; James, stars analytical lead in [place] Preferred Pharmacy: [facility] Insurance: [facility] A/B, MMO Prescription Benefit:?[facility] D-[employer] Living Will/HPOA: Pt has LW/HPOA and is aware that they are on file at [facility]. Pt's , Janae Gonzalez, is HPOA. LNOK: Janae Gonzalez, /HPOA Living Arrangements: Pt lives with in 1 story home with 3 steps in and states no concerns at home. Pt states assists with all ADL's. Transportation: Pt's drives and states no transportation concerns. DME/HHC: Pt has the following DME: WW, rollator, Walk in shower, grab bars, raised toilet seat, cpap, and 4-5L home oxygen thru [facility]. states they are planning to get a scooter for pt. Pt/ state no need for any further DME. Per , pt was active with [facility] but states they may not take pt back since he came to hospital. Per pt, he wants to 'get better' and states she was just looking for resources to assist with pt. Pt/ unsure that they want pt to go back on hospice at d/c. Call to [facility] to notify of admission and SW to call this HALEY BLANK back. Pt states no hx of SNF in past but has had [facility]. Pt/ state that if they do not go back with hospice then they would like [facility] and DME for discharge. Pt is on OP HD at [facility]. Pt states no concerns with going home at time of discharge. Pt is retired. Pt states does not smoke cigarettes or drink ETOH. Pt voices no further concerns/needs. CM to follow for any further discharge planning/needs. Advised pt to ask for CM if any further questions/concerns/needs arise, voices understanding. Pt Goal: Home Plan: Home Radha DE LEON CM
[2021-12-14] MEDS: Ipratropium/Albuterol Sulfate 3 ML AMPUL.NEB INHALATION ×2 (13:08→19:37)
--- NOTE | 2021-12-14 14:58 | CHAPLAIN ---
Type of Pastoral Visit _x__ Initial Visit ___ Follow-up Visit ___ On-call Visit ___ General Patient Visit ___ Spiritual Assessment ___ Family Conference ___ Bereavement ___ Rapid Response ___ Code Blue ___ Other (describe below) Pastoral Care Referral From _x__ Patient ___ Family ___ Nurse ___ Physician ___ Event Manager ___ Psychology Instructor ___ Other (describe below) Sacrament/Intervention _x__ Active listening ___ Anointing ___ Orthodox ___ Bereavement ___ Communion _x__ Tanisha exploration ___ _x__ Life review _x__ Prayer ___ Reconciliation ___ Sacrament of Sick _x__ Supportive presence ___ Wedding ___ Other (describe below) Pastoral Comments patient is welcoming and invites this night court magistrate to sit down in chair; spouse is with patient and welcomes visit; pt gives some review of his health, his family, and recent medical interventions; pt does ask several questions pertaining to spiritual matters including and heaven; pt says that he has a supportive family and that they are all doing well in life; pt is member of a local zoroastrianism but has not been attending much in the last few years; listening, supportive attention, respective care extended to patient along with a prayer
--- NOTE | 2021-12-14 18:30 | OP.CCLET_ITS ---
12/14/2021 Zack Stacy Re : Upper GI endoscopy procedure for Minh Stacy This procedure was performed on Tuesday, December 14, 2021. My impressions and recommendations are as follows: Impressions : - Normal esophagus. - Oozing gastric ulcers with a visible vessel. Treated with a monopolar probe. - Multiple bleeding angiodysplastic lesions in the stomach. Treated with a heater probe. - No gross lesions in the second portion of the duodenum. - No specimens collected. Recommendations : - Return patient to hospital [facility] for ongoing care. - Full liquid diet. - No aspirin, ibuprofen, naproxen, or other non-steroidal anti-inflammatory drugs for 7 days. - Use sucralfate tablets 1 gram PO QID for 2 months. - Use Protonix (pantoprazole) 40 mg PO BID for 8 weeks. My findings are described in the full procedure note, which is enclosed. If I can be of further assistance, please feel free to contact me at . Sincerely, Khari Mohr, 12/14/2021 6:29:55 PM This report has been signed electronically.
--- NOTE | 2021-12-14 18:30 | OP.EGD_ITS ---
Patient Name: Minh Gonzalez Procedure Date: 12/14/2021 5:59 PM Date of : 1945 Age: 76 Procedure: Upper GI endoscopy Indications: Iron deficiency anemia, Melena Providers: Khari Mohr DO Medicines: Monitored Anesthesia Care Patient Profile: This is a 76 year old male. Refer to note in patient chart for documentation of history and physical. Patient has symptoms. Complications: No immediate complications. Procedure: Pre-Anesthesia Assessment: - Prior to the procedure, a History and Physical was performed, and patient medications and allergies were reviewed. The risks and benefits of the procedure and the sedation options and risks were discussed with the patient. All questions were answered and informed consent was obtained. Patient identification and proposed procedure were verified by the physician in the pre-procedure area. Mental Status Examination: alert and oriented. Airway Examination: normal oropharyngeal airway and neck mobility. Respiratory Examination: clear to auscultation. CV Examination: normal. Prophylactic Antibiotics: The patient does not require prophylactic antibiotics. Prior Anticoagulants: The patient has taken no previous anticoagulant or antiplatelet agents. After reviewing the risks and benefits, the patient was deemed in satisfactory condition to undergo the procedure. The anesthesia plan was to use monitored anesthesia care (MAC). Immediately prior to administration of medications, the patient was re-assessed for adequacy to receive sedatives. The heart rate, respiratory rate, oxygen saturations, blood pressure, adequacy of pulmonary ventilation, and response to care were monitored throughout the procedure. The physical status of the patient was re-assessed after the procedure. After obtaining informed consent, the endoscope was passed under direct vision. Throughout the procedure, the patient's blood pressure, pulse, and oxygen saturations were monitored continuously. The gastroscope was introduced through the mouth, and advanced to the second part of duodenum. The upper GI endoscopy was accomplished without difficulty. The patient tolerated the procedure well. Scope In: 6:12:05 PM Scope Out: 6:23:59 PM Total Procedure Duration Time 0 hours 11 minutes 54 seconds Findings: The examined esophagus was normal. Two oozing cratered gastric ulcers with a visible vessel were found in the gastric body. The largest lesion was 6 mm in largest dimension. Coagulation for hemostasis using monopolar probe was successful. Estimated blood loss was minimal. Multiple 5 mm bleeding angiodysplastic lesions were found in the cardia and on the lesser curvature of the stomach. Coagulation for hemostasis using heater probe was successful. Estimated blood loss was minimal. No gross lesions were noted in the second portion of the duodenum. Impression: - Normal esophagus. - Oozing gastric ulcers with a visible vessel. Treated with a monopolar probe. - Multiple bleeding angiodysplastic lesions in the stomach. Treated with a heater probe. - No gross lesions in the second portion of the duodenum. - No specimens collected. Recommendation: - Return patient to [facility] for [facility] care. - Full liquid diet. - No aspirin, ibuprofen, naproxen, or other non-steroidal anti-inflammatory drugs for 7 days. - Use sucralfate tablets 1 gram PO QID for 2 months. - Use Protonix (pantoprazole) 40 mg PO BID for 8 weeks. Procedure Code(s): --- Professional --- 28854, Esophagogastroduodenoscopy, flexible, transoral; with control of bleeding, any method CPT copyright 2017 [employer]. All rights reserved. The codes documented in this report are preliminary and upon remote coders review may be revised to meet current compliance requirements. Khari Mohr DO 12/14/2021 6:29:55 PM This report has been signed electronically. Number of Addenda: 0 Note Initiated On: 12/14/2021 5:59 PM
[2021-12-14] MEDS: Allopurinol 100 MG Tablet PO (19:29)
[2021-12-14] MEDS: Sertraline 50 MG Tablet PO (19:29)
[2021-12-14] MEDS: Ferrous Sulfate 325 MG Tablet PO (19:29)
[2021-12-14] MEDS: Montelukast 10 MG Tablet PO (19:29)
[2021-12-14] MEDS: Atorvastatin Calcium 20 MG Tablet PO (21:59)
[2021-12-14] MEDS: Sucralfate 1 GM Tablet PO (21:59)
[2021-12-14] MEDS: Gabapentin 100 MG Capsule 200 MG PO (21:59)
[2021-12-15] VITALS (15 sets, daily range): BP systolic 98–120; BP diastolic 43–96; PULSE 66–77; RESP 16–20; TEMP 36.2–36.6; O2SAT 94–100
[2021-12-15] MEDS: Albuterol 2.5 MG/3 ML VIAL.NEB. INHALATION (04:15)
[2021-12-15 05:43] LABS: Absolute Lymphocyte Count 0.58 X10^3/uL (0.83-4.51); Absolute Neutrophil Count 5.2 X10^3/uL (2.0-7.7); Basophil# 0.09 X10^3/uL; Basophil% 1.3 % (0-1); Eosinophils% 5.7 % (0-5); Hematocrit 22.8 % (40-54); Hemoglobin 7.1 g/dL (13.0-16.5); Lymphocyte # 0.58 X10^3/ul (0.83-4.51); Lymphocyte % 8.2 % (19-41); Mean Corp Hgb Conc 31.1 g/dL (32-36); Mean Corpuscular Hgb 30.2 pg (27.0-32.0); Mean Platelet Vol. 8.7 fl (6.2-12.0); Monocyte# 0.79 X10^3/uL; Monocyte% 11.2 % (0-10); NRBC Flagged by Analyzer 0 % (0-5); Neutrophil # 5.16 X10^3/uL (2.7-7.7); Neutrophil % 73.3 % (47-70); POSITIVE DIFFERENTIAL YES; POSITIVE MORPHOLOGY YES; Platelet Count 214 K/mm3 (150-450); RBC Distribution Width CV 19.1 % (11.6-14.6); RBC Distribution Width SD 67.4 fl (35.1-43.9); Red Blood Count 2.35 M/mm3 (4.6-6.2)
[2021-12-15 06:10] LABS: Differential Indicated SCAN CRITERIA MET
[2021-12-15] MEDS: Levothyroxine 50 MCG Tablet PO (06:20)
[2021-12-15] MEDS: Sucralfate 1 GM Tablet PO ×3 (06:20→15:58)
[2021-12-15 06:28] LABS: Anisocytosis 2+; Macrocytosis 1+
[2021-12-15 06:29] LABS: Albumin, Serum 2.3 g/dL (3.2-5.0); BUN 53 mg/dL (7-18); BUN/Creat Ratio 13.1 RATIO (10-20); Calcium,Total 8.5 mg/dL (8.5-10.1); Chloride 101 mmol/L (98-107); Creatinine, Serum 4.04 mg/dL (0.70-1.30); EST Glomerular Filtration Rate 15 mL/min (>60); Est Glom Filt Rate - Afr Amer 19 mL/min (>60); Estimated Creatinine Clearance 14.77 ml/min; Glucose 75 mg/dL (74-106); Ovalocyte RARE; Phosphorus 3.8 mg/dL (2.5-4.9); Polychromasia RARE; Potassium 3.9 mmol/L (3.5-5.1); Sodium Level 138 mmol/L (136-145)
[2021-12-15] MEDS: Ipratropium/Albuterol Sulfate 3 ML AMPUL.NEB INHALATION ×3 (07:11→19:40)
--- NOTE | 2021-12-15 08:48 | PCM.PN.REN ---
Subjective Subjective Following for ESRD Patient is sitting in chair. Denies any complaints. No overnight events. Objective Data Objective Data Vital Signs: Vital Signs Temp Pulse Resp BP Pulse Ox O2 Del Method O2 Flow Rate 97.6 F L 69 16 112/92 H 99 Nasal Cannula 4 12/15/21 03:48 12/15/21 07:12 12/15/21 07:12 12/15/21 03:48 12/15/21 07:12 12/15/21 07:12 12/15/21 07:12 Oxygen Flow Rate (L/min) 4 Oxygen Delivery Method Nasal Cannula Weight: 90.8 kg Body Mass Index (BMI) 31.3 Intake & Output: Intake and Output for Last 24 Hours 12/13/21 12/14/21 12/15/21 23:59 23:59 23:59 Intake Total 510 / 510 650 / 650 Output Total 0 / 0 Balance 510 / 510 650 / 650 Lab / Micro Data Result Diagrams: 12/15/21 05:04 12/15/21 05:04 Labs: Laboratory Results - last 24 hr 12/15/21 05:04: WBC 7.0, RBC 2.35 L, Hgb 7.1 L, Hct 22.8 L, MCV 97.0 H, MCH 30.2, MCHC 31.1 L, RDW Std Deviation 67.4 H, RDW Coeff of Nick 19.1 H, Plt Count 214, MPV 8.7, Immature Gran % (Auto) 0.300, Neut % (Auto) 73.3 H, Lymph % (Auto) 8.2 L, [place] % (Auto) 11.2 H, Eos % (Auto) 5.7 H, Baso % (Auto) 1.3 H, Absolute Neuts (auto) 5.2, Absolute Lymphs (auto) 0.58 L, Nucleated RBC % 0, Polychromasia RARE, Anisocytosis 2+, Macrocytosis 1+, Ovalocytes RARE 12/15/21 05:04: Sodium 138, Potassium 3.9, Chloride 101, Carbon Dioxide 27.0, BUN 53 H, Creatinine 4.04 H, Estim Creat Clear Calc 14.77, Est GFR (MDRD) Af Amer 19 L, Est GFR (MDRD) Non-Af 15 L, BUN/Creatinine Ratio 13.1, Glucose 75, Calcium 8.5, Phosphorus 3.8, Albumin 2.3 L Micro: Microbiology 12/13/21 17:40 Stool Stool Occult Blood (ANALIA) - Final Occult Blood Positive Physical Exam Narrative Const: Alert and oriented x3, no apparent distress Cardio: S1, S2, RRR Respiratory: Lung sounds clear anteriorly, no wheezes, rales or rhonchi noted. On O2 at 4 L Abdomen: Soft, rounded, positive bowel sounds Extremities: 1-2+ pitting edema noted bilateral lower legs AV fistula left forearm positive thrill and bruit Assessment & Plan Assessment/Plan (1) Anemia: (2) ESRD (end stage renal disease): (3) COPD (chronic obstructive pulmonary disease): PLAN: Plan - ESRD on hemodialysis Monday at [facility]: Patient will have dialysis today over 4 hours/ 3k bath and attempt fluid removal as patient/blood pressure tolerates. Patient did have dialysis on Monday at his outpatient HD center but no fluid removed due to low hemoglobin. - Acute anemia: Hemoglobin 5 in the emergency room. He did receive PRBC and hemoglobin improved to 7. Hemoglobin is 7.1 today. GI has been consulted. Patient had EGD yesterday: Multiple bleeding angiodysplastic lesions in stomach treated with heater probe, normal esophagus, oozing gastric ulcers with a visible vessel. No NSAIDs, on sucralfate 4 times daily for 2 months, Protonix for 8 weeks. Currently on pantoprazole drip. Patient receives FERMIN with dialysis, ordered for today. -Blood pressures acceptable, patient is not on any antihypertensives. He receives midodrine predialysis and will continue. -COPD and is on O2 at 4 L at all times.
[2021-12-15 09:43] LABS: Pathologist Review Reviewed
--- NOTE | 2021-12-15 11:01 | CASEMGMT ---
Addendum entered by Alana Burks 12/15/21 13:12: This RN CM to room to discuss discharge plan with pt/. Per pt/, they do not want to go back on hospice at this time and would like [facility] set up thru [facility]. Maricruz d/roseanna planning asst, aware and sending referral via [facility]. Order placed for SN, PT/OT. Dr. Galindo updated, voices understanding. CM to follow for home oxygen as pt will need set up thru [facility] as he will no longer be on Hospice. Call to [facility] to notify of all and request that they contact pt's as well, voice understanding. Pt/ voice no further questions/concerns/needs. Radha DE LEON CM Original Note: This RN CM received a message from Francisca at [facility] to call her back. Call back to Francisca and message left for her to call this RN CM back. CM to follow. Radha DE LEON CM
[2021-12-15] MEDS: Montelukast 10 MG Tablet PO (11:25)
[2021-12-15] MEDS: Sertraline 50 MG Tablet PO (11:25)
[2021-12-15] MEDS: Fluticasone 0.05% 1 SPRAY NASAL.SRY 2 SPRAY NASAL (11:25)
[2021-12-15] MEDS: Amiodarone 200 MG Tablet 100 MG PO (11:25)
[2021-12-15] MEDS: Ferrous Sulfate 325 MG Tablet PO ×2 (11:25→15:58)
--- NOTE | 2021-12-15 11:36 | NURSING ---
per dialysis nurse, [facility] held this morning until dialysis later this evening
[2021-12-15] MEDS: Allopurinol 100 MG Tablet PO (12:01)
--- NOTE | 2021-12-15 13:14 | CASEMGMT ---
Discharge Button Machine Operator Maricruz duenas assistant cook sent referral to [facility] via [facility]. Will follow up. Plan: Home w/home health Maricruz Walker Discharge Button Machine Operator
--- NOTE | 2021-12-15 15:29 | CASEMGMT ---
Discharge Academic Vice President Maricruz d/c assistant site manager called [facility]. [facility] can't take patient due to short staff. Maricruz went to patient bedside and spoke with patients . asked if [facility] could service him. Maricruz told Maricruz would send referral. If [facility] can't take patient would like a list to try to find more option that would service area. Plan: Home w/Home Health, Waiting acceptance with [facility] Maricruz Walker Discharge Academic Vice President
--- NOTE | 2021-12-15 15:30 | PCM.PN.HOSP ---
Subjective Subjective DOS 12/15/21 CC: SOB Mr. Gonzalez is a 76y/o M with hx of ESRD on HD, COPD on home O2, and CAD s/p CABG and PCI as well as pafib who presented to [facility] 12/13 with 3-4 weeks of dark black stool and worsening fatigue and weakness. Pt reports BM last night that was dark but no overt blood and no further incident today. Has SOB which is close to baseline and continues to be O2 dependent, which is chronic. He does endorse continued cough. Pt for HD today. Appetite improving. No n/v, no abdominal pain. No headache or changes in vision, does have swelling in arms 1+ to elbows, legs have compression stockings so less swelling evident. Objective Data Objective Data Vital Signs: Vital Signs Temp Pulse Resp BP Pulse Ox O2 Del Method O2 Flow Rate 97.2 F L 66 18 98/43 L 95 Nasal Cannula 4 12/15/21 09:45 12/15/21 15:02 12/15/21 13:51 12/15/21 09:45 12/15/21 11:20 12/15/21 09:45 12/15/21 11:20 Oxygen Flow Rate (L/min) 4 Oxygen Delivery Method Nasal Cannula Weight: 90.8 kg Body Mass Index (BMI) 31.3 Intake & Output: Intake and Output for Last 24 Hours 12/13/21 12/14/21 12/15/21 23:59 23:59 23:59 Intake Total 510 / 510 650 / 650 510 / 510 Output Total 0 / 0 Balance 510 / 510 650 / 650 510 / 510 Lab / Micro Data Result Diagrams: 12/15/21 05:04 12/15/21 05:04 Labs: Laboratory Results - last 24 hr 12/13/21 16:00: Diff Path Review Reviewed 12/15/21 05:04: WBC 7.0, RBC 2.35 L, Hgb 7.1 L, Hct 22.8 L, MCV 97.0 H, MCH 30.2, MCHC 31.1 L, RDW Std Deviation 67.4 H, RDW Coeff of Nick 19.1 H, Plt Count 214, MPV 8.7, Immature Gran % (Auto) 0.300, Neut % (Auto) 73.3 H, Lymph % (Auto) 8.2 L, [place] % (Auto) 11.2 H, Eos % (Auto) 5.7 H, Baso % (Auto) 1.3 H, Absolute Neuts (auto) 5.2, Absolute Lymphs (auto) 0.58 L, Nucleated RBC % 0, Polychromasia RARE, Anisocytosis 2+, Macrocytosis 1+, Ovalocytes RARE 12/15/21 05:04: Sodium 138, Potassium 3.9, Chloride 101, Carbon Dioxide 27.0, BUN 53 H, Creatinine 4.04 H, Estim Creat Clear Calc 14.77, Est GFR (MDRD) Af Amer 19 L, Est GFR (MDRD) Non-Af 15 L, BUN/Creatinine Ratio 13.1, Glucose 75, Calcium 8.5, Phosphorus 3.8, Albumin 2.3 L Micro: Microbiology 12/13/21 17:40 Stool Stool Occult Blood (ANALIA) - Final Occult Blood Positive Physical Exam Const alert and oriented x3 HEENT head/scalp atraumatic Eyes EOMs intact bilaterally Neck supple Resp Resp Narrative: Coarse breath sounds bilaterally with scattered wheezes Cardio regular rate and regular rhythm GI soft to palpation, non-tender and non-distended Extremity Extremity Narrative: Trace BLE edema, currently LUDY hose in place, BUE with 1+ edema to elbows Neuro moves all extremities Psych affect normal Assessment & Plan Assessment/Plan (1) GI bleed: PLAN: Plan -Acute blood loss anemia 2/2 GI bleed on chronic macrocytic anemia/anemia of chronic disease On admit hgb was 5 and pt is 2/p 2uprbc with improving symptoms, currently 7.1 EGD 12/14 demonstrated Multiple bleeding angiodysplastic lesions in the stomach.? Treated with a ?heater probe with recommendations for liquid diet and no antiplatelet/AC for 5-7 days Additionally PPI BID for 8 weeks Transitioned to PO PPI this AM Will advance diet Pt to have FERMIN with HD today Chronic HFrEF 07/02/21 echocardiogram with EF 25 to 30%, severe LV systolic dysfunction, mild MR, RVSP 39.9 mmHg with no significant change from prior echo 04/2020. ASA and eliquis held overnight after discussion with GI per ED d/t GI bleed continue statin therapy Given BP currently holding coreg and lasix No documented marita/arb on home med list temporarily as noted holding Coreg, Lasix, not on MARITA inhibitor/ARB. CAD s/p PCI and CABG holding asa and eliquis temporarily given acute presentation #1 Will transition back at 5 days per GI recs continue statin holding BB given low BP as noted not on MARITA/ARB likely secondary to underlying renal disease. Chronic COPD with chronic hypoxic respiratory failure Continue home O2 which is reported to be 4-5 LNC Pt reports using nebs at home Given breathing this AM with cough, wheezes, and coarse breath sounds will start back nebs prn albuterol Hypothyroidism We will continue patient home levothyroxine regimen. ESRD Patient following w/ Dr. Fam, HD MWF Patient did have HD on day of presentation but no fluid removed Not grossly overloaded HD today Nephrology following Continue midodrine PAF Holding anticoagulant therapy as noted given acute presentation #1, holding Coreg given low BP, continue amiodarone. Anxiety and depression We will continue patient home sertraline regimen. GERD We will maintain on IV PPI as noted above MARCELO BiPAP nightly. DVT prophylaxis: SCDs, holding home eliquis given acute presentation #1. MDM: Pt s/p EGD with multiple sources of bleeding identified requiring intervention. Hgb remained low today but no active bleeding at this time. Will monitor overnight with advanced diet to assess status and monitor with HD. Likely d/c tomorrow if pt stable and tolerating diet and without further bleeding. Kaylen Galindo MD Time spent: 25 minutes Charges/Coding Visit Charges Inpatient E&M: 43380 Subs Hosp L2
[2021-12-15] MEDS: Midodrine HCl 5 MG Tablet 10 MG PO (15:58)
[2021-12-15] MEDS: Lidocaine/Prilocaine HCl 5 GM Tube TOPICAL (15:58)
--- NOTE | 2021-12-15 16:55 | PCM.PROGNOTE ---
Subjective Subjective Patient underwent an upper endoscopy yesterday and was discovered to have active bleeding in his stomach. He is not have any abdominal pain at this time. Did undergo hemodialysis today and has had his diet advanced. Objective Data Objective Data Vital Signs: Vital Signs Temp Pulse Resp BP Pulse Ox O2 Del Method O2 Flow Rate 97.2 F L 69 20 H 107/96 H 96 Nasal Cannula 4 12/15/21 15:45 12/15/21 15:45 12/15/21 15:45 12/15/21 15:45 12/15/21 15:45 12/15/21 15:45 12/15/21 15:45 Oxygen Flow Rate (L/min) 4 Oxygen Delivery Method Nasal Cannula Weight: 200 lb 2.876 oz Body Mass Index (BMI) 31.3 Intake & Output: Intake and Output for Last 24 Hours 12/13/21 12/14/21 12/15/21 23:59 23:59 23:59 Intake Total 510 / 510 650 / 650 510 / 510 Output Total 0 / 0 Balance 510 / 510 650 / 650 510 / 510 Lab / Micro Data Result Diagrams: 12/15/21 05:04 12/15/21 05:04 Labs: Laboratory Results - last 24 hr 12/13/21 16:00: Diff Path Review Reviewed 12/15/21 05:04: WBC 7.0, RBC 2.35 L, Hgb 7.1 L, Hct 22.8 L, MCV 97.0 H, MCH 30.2, MCHC 31.1 L, RDW Std Deviation 67.4 H, RDW Coeff of Nick 19.1 H, Plt Count 214, MPV 8.7, Immature Gran % (Auto) 0.300, Neut % (Auto) 73.3 H, Lymph % (Auto) 8.2 L, [place] % (Auto) 11.2 H, Eos % (Auto) 5.7 H, Baso % (Auto) 1.3 H, Absolute Neuts (auto) 5.2, Absolute Lymphs (auto) 0.58 L, Nucleated RBC % 0, Polychromasia RARE, Anisocytosis 2+, Macrocytosis 1+, Ovalocytes RARE 12/15/21 05:04: Sodium 138, Potassium 3.9, Chloride 101, Carbon Dioxide 27.0, BUN 53 H, Creatinine 4.04 H, Estim Creat Clear Calc 14.77, Est GFR (MDRD) Af Amer 19 L, Est GFR (MDRD) Non-Af 15 L, BUN/Creatinine Ratio 13.1, Glucose 75, Calcium 8.5, Phosphorus 3.8, Albumin 2.3 L Micro: Microbiology 12/13/21 17:40 Stool Stool Occult Blood (ANALIA) - Final Occult Blood Positive Physical Exam Narrative Const: Alert and oriented x3, no apparent distress Cardio: S1, S2, RRR Respiratory: Lung sounds clear anteriorly, no wheezes, rales or rhonchi noted. On O2 at 4 L Abdomen: Soft, rounded, positive bowel sounds Extremities: 1-2+ pitting edema noted bilateral lower legs AV fistula left forearm positive thrill and bruit Assessment & Plan Assessment/Plan (1) GI bleed: PLAN: GI bleed secondary to large gastric ulcer. It was treated endoscopically. He is on PPI therapy and sulcal fate therapy. He will need to continue that for 8 weeks. He is okay to transition back to antiplatelet therapy the after 5 days. Charges/Coding Visit Charges Inpatient E&M: 96452 Subs Hosp L2
[2021-12-15] MEDS: Epoetin Alfa epbx 10,000 UNITS/ML 20000 UNIT IV (17:42)
--- NOTE | 2021-12-15 21:09 | DIALYSIS ---
Hemodialysis completed 4 hrs on a 3 k bath, fluid removed was 3 liters. patient tolerated well.
[2021-12-15] MEDS: Gabapentin 100 MG Capsule 200 MG PO (22:25)
[2021-12-15] MEDS: Atorvastatin Calcium 20 MG Tablet PO (22:25)
[2021-12-15] MEDS: Pantoprazole Sodium 40 MG Tablet PO (22:25)
[2021-12-15] MEDS: 0.9% Saline Lock 10 ML Syringe IV (22:25)
[2021-12-16] VITALS (18 sets, daily range): BP systolic 96–124; BP diastolic 40–84; PULSE 68–80; RESP 16–20; TEMP 36.2–36.9; O2SAT 94–99
[2021-12-16 06:12] LABS: Absolute Lymphocyte Count 0.53 X10^3/uL (0.83-4.51); Absolute Neutrophil Count 4.7 X10^3/uL (2.0-7.7); Basophil# 0.08 X10^3/uL; Basophil% 1.3 % (0-1); Eosinophil# 0.38 X10^3/uL; Eosinophils% 5.9 % (0-5); Hematocrit 22.1 % (40-54); Hemoglobin 6.8 g/dL (13.0-16.5); Lymphocyte # 0.53 X10^3/ul (0.83-4.51); Lymphocyte % 8.3 % (19-41); Mean Corp Hgb Conc 30.8 g/dL (32-36); Mean Corpuscular Hgb 29.6 pg (27.0-32.0); Mean Corpuscular Volume 96.1 fL (80-94); Mean Platelet Vol. 8.2 fl (6.2-12.0); Monocyte% 10.9 % (0-10); NRBC Flagged by Analyzer 0 % (0-5); Neutrophil # 4.68 X10^3/uL (2.7-7.7); Neutrophil % 73.1 % (47-70); POSITIVE DIFFERENTIAL YES; Platelet Count 172 K/mm3 (150-450); RBC Distribution Width CV 18.6 % (11.6-14.6); RBC Distribution Width SD 61.9 fl (35.1-43.9); White Blood Count 6.4 K/mm3 (4.4-11.0)
[2021-12-16] MEDS: Sucralfate 1 GM Tablet PO ×3 (06:13→17:32)
[2021-12-16] MEDS: Levothyroxine 50 MCG Tablet PO (06:13)
[2021-12-16 06:16] LABS: Differential Indicated SCAN CRITERIA MET
[2021-12-16 06:35] LABS: Albumin, Serum 2.3 g/dL (3.2-5.0); BUN 25 mg/dL (7-18); BUN/Creat Ratio 9.4 RATIO (10-20); Calcium,Total 8.3 mg/dL (8.5-10.1); Chloride 101 mmol/L (98-107); Creatinine, Serum 2.67 mg/dL (0.70-1.30); EST Glomerular Filtration Rate 25 mL/min (>60); Est Glom Filt Rate - Afr Amer 30 mL/min (>60); Estimated Creatinine Clearance 22.35 ml/min; Glucose 83 mg/dL (74-106); Phosphorus 2.8 mg/dL (2.5-4.9); Potassium 3.4 mmol/L (3.5-5.1); Sodium Level 138 mmol/L (136-145)
[2021-12-16] MEDS: Ipratropium/Albuterol Sulfate 3 ML AMPUL.NEB INHALATION ×3 (06:41→19:19)
[2021-12-16 06:50] LABS: Anisocytosis 1+; Hypochromasia 1+; Macrocytosis 1+; Polychromasia 1+
[2021-12-16] MEDS: Amiodarone 200 MG Tablet 100 MG PO (08:18)
[2021-12-16] MEDS: Montelukast 10 MG Tablet PO (08:19)
[2021-12-16] MEDS: Sertraline 50 MG Tablet PO (08:19)
[2021-12-16] MEDS: Pantoprazole Sodium 40 MG Tablet PO ×2 (08:19→22:01)
[2021-12-16] MEDS: Ferrous Sulfate 325 MG Tablet PO ×2 (08:19→17:32)
[2021-12-16] MEDS: Allopurinol 100 MG Tablet PO (08:19)
[2021-12-16] MEDS: Fluticasone 0.05% 1 SPRAY NASAL.SRY 2 SPRAY NASAL (08:19)
--- NOTE | 2021-12-16 08:38 | CASEMGMT ---
Discharge Senior Service Aide Maxine left a voicemail on this writers phone. Maxine can accept patient and a start of service on Monday. This newswriter called patients , patient is okay with them seeing patient Monday. Maricruz called home health and left a voicemail with Amparo. Plan: Home w/ Home Health Maricruz Walker Discharge Senior Service Aide
--- NOTE | 2021-12-16 09:12 | PN.HOSP_ITS ---
Subjective Subjective DOS 12/16/21 CC: Mr. Gonzalez is a 76y/o M with hx of ESRD on HD, COPD on home O2, and CAD s/p CABG and PCI as well as pafib who presented to [facility] 12/13 with 3-4 weeks of dark black stool and worsening fatigue and weakness. This AM his hgb was 6.8, down from 7.1 even post dialysis. He was given 1u prbc that is still transfusing and will recheck after. Denies any dark stools today. Denies abd pain, no nausea reported. Eating fair. Cough improving and SOB roughly the same. Continues to make minimal urine, roughly twice a day, which is his baseline. Does feel his arms are still swollen, legs have compression stock ings in place. Denies headache or changes in vision. No chest pain. No other complaints voiced. Objective Data Objective Data Vital Signs: Vital Signs Temp Pulse Resp BP Pulse Ox O2 Del Method O2 Flow Rate 97.5 F L 76 20 H 96/47 L 95 Nasal Cannula 4 12/16/21 08:16 12/16/21 08:16 12/16/21 08:16 12/16/21 08:16 12/16/21 08:16 12/16/21 08:16 12/16/21 08:10 FiO2 100 12/15/21 21:12 Oxygen Flow Rate (L/min) 4 Oxygen Delivery Method Nasal Cannula Weight: 91.6 kg Body Mass Index (BMI) 31.3 Intake & Output: Intake and Output for Last 24 Hours 12/14/21 12/15/21 12/16/21 23:59 23:59 23:59 Intake Total 650 / 650 710 / 710 0 / 0 Output Total 0 / 0 3000 / 3000 0 / 0 Balance 650 / 650 -2290 / -2290 0 / 0 Lab / Micro Data Result Diagrams: 12/16/21 06:02 12/16/21 06:02 Labs: Laboratory Results - last 24 hr 12/13/21 16:00: Diff Path Review Reviewed 12/13/21 16:00: Crossmatch See Detail 12/16/21 06:02: WBC 6.4, RBC 2.30 L, Hgb 6.8 L, Hct 22.1 L, MCV 96.1 H, MCH 29.6, MCHC 30.8 L, RDW Std Deviation 61.9 H, RDW Coeff of Nick 18.6 H, Plt Count 172, MPV 8.2, Immature Gran % (Auto) 0.500, Neut % (Auto) 73.1 H, Lymph % (Auto) 8.3 L, [place] % (Auto) 10.9 H, Eos % (Auto) 5.9 H, Baso % (Auto) 1.3 H, Absolute Neuts (auto) 4.7, Absolute Lymphs (auto) 0.53 L, Nucleated RBC % 0, Polychromasia 1+, Hypochromasia 1+, Anisocytosis 1+, Macrocytosis 1+ 12/16/21 06:02: Sodium 138, Potassium 3.4 L, Chloride 101, Carbon Dioxide 31.0, BUN 25 H, Creatinine 2.67 H, Estim Creat Clear Calc 22.35, Est GFR (MDRD) Af Amer 30 L, Est GFR (MDRD) Non-Af 25 L, BUN/Creatinine Ratio 9.4 L, Glucose 83, Calcium 8.3 L, Phosphorus 2.8, Albumin 2.3 L Micro: Microbiology 12/13/21 17:40 Stool Stool Occult Blood (ANALIA) - Final Occult Blood Positive Physical Exam Const alert and oriented x3 HEENT head/scalp atraumatic Eyes EOMs intact bilaterally Neck supple Resp Resp Narrative: Scattered wheezes, crackles at bases, improved overall Cardio regular rate and regular rhythm GI soft to palpation, non-tender and non-distended Extremity Extremity Narrative: Trace BLE edema, currently LUDY hose in place, BUE with 1+ edema to right above elbows inferiorly Neuro moves all extremities Psych affect normal Assessment & Plan Assessment/Plan (1) GI bleed: PLAN: Plan -Acute blood loss anemia 2/2 GI bleed on chronic macrocytic anemia/anemia of chronic disease Hgb on admit 5 which did improve after 2u prbc. This AM hgb went from 7.1->6.8 but this was post dialysis w/ 3 L removed, would have anticipated increased levels Currently receiving 1uprbc with plan to recheck- given drop and repeat transfusion in setting of multiple bleeding lesions in stomach s/p intervention likely will monitor closely overnight but will reevaluate this afternoon Appreciate GI recs EGD 12/14 demonstrated Multiple bleeding angiodysplastic lesions in the stomach.? Treated with a ?heater probe with recommendations for liquid diet and no antiplatelet/AC for 5-7 days Additionally PPI BID for 8 weeks Tolerated advanced diet Chronic HFrEF 07/02/21 echocardiogram with EF 25 to 30%, severe LV systolic dysfunction, mild MR, RVSP 39.9 mmHg with no significant change from prior echo 04/2020. ASA and eliquis held overnight after discussion with GI per ED d/t GI bleed continue statin therapy Given BP currently holding coreg and lasix, SBP 90's overnight No documented marita/arb on home med list temporarily as noted holding Coreg, Lasix, not on MARITA inhibitor/ARB. CAD s/p PCI and CABG holding asa and eliquis temporarily given acute presentation #1 Will transition back at 5 days per GI recs continue statin holding BB given low BP as noted not on MARITA/ARB likely secondary to underlying renal disease. Chronic COPD with chronic hypoxic respiratory failure Continue home O2 which is reported to be 4-5 LNC Pt reports using nebs at home Doing well on nebs prn albuterol Hypothyroidism We will continue patient home levothyroxine regimen. ESRD Patient following w/ Dr. Fam, HD MWF Patient did have HD on day of presentation but no fluid removed, HD 12/15 with 3L removed Not grossly overloaded but does have some dependent edema Nephrology following Continue midodrine before HD PAF Holding anticoagulant therapy as noted given acute presentation #1, holding Coreg given low BP, continue amiodarone. Anxiety and depression We will continue patient home sertraline regimen. GERD We will maintain on PPI as above MARCELO BiPAP nightly. DVT prophylaxis: SCDs, holding home eliquis given acute presentation #1. Kaylen Galindo MD Time spent: 25 minutes Charges/Coding Visit Charges Inpatient E&M: 83131 Subs Hosp L2
[2021-12-16] MEDS: Potassium Chloride Oral Tablet 10 MEQ PO (10:30)
[2021-12-16 11:23] LABS: Hematocrit 28.2 % (40-54); Hemoglobin 8.6 g/dL (13.0-16.5)
--- NOTE | 2021-12-16 12:25 | CASEMGMT ---
Addendum entered by Cecilia Rangel 12/16/21 18:09: states they do have a pulse ox. Original Note: HALEY BLANK NOTE: Per Dr Galindo, pt may be medically ready to discharge today. Home O2 testing completed today and pt requires 2 L/M w/exertion. HALEY CM to room to talk w/pt and , who is at bedside. Pt sleeping soundly in chair. aware pt requires home O2 at this time. She states since [facility] not set up through [facility], that she has no preference of DME co. provided with list of DME providers consistent with the patient's preferred geographic region, medical needs, and insurance network. made aware [employer] is affilitated w/[facility]. states preferred provider is [employer]. Claudio WINSLOW RN CM .
--- NOTE | 2021-12-16 14:30 | CASEMGMT ---
HALEY BLANK NOTE: Call placed to Maxine @ [facility]. VM left informing [facility] that pt is not being discharged today. Claudio WINSLOW RN CM
--- NOTE | 2021-12-16 14:51 | PN.RENAL_ITS ---
Subjective Subjective Following for ESRD Sitting in chair in room. Reports feeling better overall. Denies any complaints. Denies any cramping with dialysis last evening. Objective Data Objective Data Vital Signs: Vital Signs Temp Pulse Resp BP Pulse Ox O2 Del Method O2 Flow Rate 97.2 F L 68 16 106/58 L 97 Nasal Cannula 4 12/16/21 10:29 12/16/21 13:14 12/16/21 13:14 12/16/21 10:29 12/16/21 10:29 12/16/21 14:00 12/16/21 14:00 FiO2 100 12/15/21 21:12 Oxygen Flow Rate (L/min) 4 Oxygen Delivery Method Nasal Cannula Weight: 91.6 kg Body Mass Index (BMI) 31.3 Intake & Output: Intake and Output for Last 24 Hours 12/14/21 12/15/21 12/16/21 23:59 23:59 23:59 Intake Total 650 / 650 710 / 710 800 / 800 Output Total 0 / 0 3000 / 3000 0 / 0 Balance 650 / 650 -2290 / -2290 800 / 800 Lab / Micro Data Result Diagrams: 12/16/21 11:14 12/16/21 06:02 Labs: Laboratory Results - last 24 hr 12/13/21 16:00: Crossmatch See Detail 12/16/21 06:02: WBC 6.4, RBC 2.30 L, Hgb 6.8 L, Hct 22.1 L, MCV 96.1 H, MCH 29.6, MCHC 30.8 L, RDW Std Deviation 61.9 H, RDW Coeff of Nick 18.6 H, Plt Count 172, MPV 8.2, Immature Gran % (Auto) 0.500, Neut % (Auto) 73.1 H, Lymph % (Auto) 8.3 L, [place] % (Auto) 10.9 H, Eos % (Auto) 5.9 H, Baso % (Auto) 1.3 H, Absolute Neuts (auto) 4.7, Absolute Lymphs (auto) 0.53 L, Nucleated RBC % 0, Polychromasia 1+, Hypochromasia 1+, Anisocytosis 1+, Macrocytosis 1+ 12/16/21 06:02: Sodium 138, Potassium 3.4 L, Chloride 101, Carbon Dioxide 31.0, BUN 25 H, Creatinine 2.67 H, Estim Creat Clear Calc 22.35, Est GFR (MDRD) Af Amer 30 L, Est GFR (MDRD) Non-Af 25 L, BUN/Creatinine Ratio 9.4 L, Glucose 83, Calcium 8.3 L, Phosphorus 2.8, Albumin 2.3 L 12/16/21 11:14: Hgb 8.6 L, Hct 28.2 L Micro: Microbiology 12/13/21 17:40 Stool Stool Occult Blood (ANALIA) - Final Occult Blood Positive Physical Exam Narrative Const: Alert and oriented x3, no apparent distress Cardio: S1, S2, RRR Respiratory: Lung sounds clear anteriorly, no wheezes, rales or rhonchi noted. On O2 at 4 L Abdomen: Soft, rounded, positive bowel sounds Extremities: 1+ pitting edema noted bilateral lower legs AV fistula left forearm positive thrill and bruit Assessment & Plan Assessment/Plan (1) Anemia: (2) ESRD (end stage renal disease): (3) COPD (chronic obstructive pulmonary disease): PLAN: Plan - ESRD on hemodialysis Monday at [facility]: Patient will have dialysis tomorrow over 4 hours/ 3k bath and attempt fluid removal as patient/blood pressure tolerates. No acute indication for [employer] today. - Acute anemia: Hemoglobin 5 in the emergency room. He did receive PRBC and hemoglobin improved to 7. Hemoglobin is 6.8 this morning, he received PRBC today. GI following. Patient had EGD: Multiple bleeding angiodysplastic lesions in stomach treated with heater probe, normal esophagus, oozing gastric ulcers with a visible vessel. No NSAIDs, on sucralfate 4 times daily for 2 months, Protonix for 8 weeks. Currently on pantoprazole drip. Patient receives FERMIN with dialysis, ordered for tomorrow. -Blood pressures acceptable, patient is not on any antihypertensives. He receives midodrine predialysis and will continue. -COPD and is on O2 at 4 L at all times.
[2021-12-16] MEDS: Gabapentin 100 MG Capsule 200 MG PO (22:01)
[2021-12-16] MEDS: Atorvastatin Calcium 20 MG Tablet PO (22:01)
[2021-12-17 02:47] VITALS: PULSE 84
[2021-12-17 04:03] VITALS: BP 131/71; PULSE 81; RESP 18; TEMP 36.5; O2SAT 97
[2021-12-17] MEDS: 0.9% Saline Lock 10 ML Syringe IV (05:55)
[2021-12-17] MEDS: Sucralfate 1 GM Tablet PO (05:55)
[2021-12-17] MEDS: Levothyroxine 50 MCG Tablet PO (05:55)
[2021-12-17 06:51] VITALS: PULSE 72; RESP 12; O2SAT 98
[2021-12-17] MEDS: Ipratropium/Albuterol Sulfate 3 ML AMPUL.NEB INHALATION (06:51)
[2021-12-17 07:00] VITALS: PULSE 84
[2021-12-17 07:47] LABS: Absolute Lymphocyte Count 0.57 X10^3/uL (0.83-4.51); Basophil# 0.07 X10^3/uL; Eosinophil# 0.51 X10^3/uL; Eosinophils% 7.2 % (0-5); Hemoglobin 7.9 g/dL (13.0-16.5); Lymphocyte # 0.57 X10^3/ul (0.83-4.51); Lymphocyte % 8.1 % (19-41); Mean Corp Hgb Conc 30.4 g/dL (32-36); Mean Corpuscular Hgb 29.5 pg (27.0-32.0); Mean Platelet Vol. 8.5 fl (6.2-12.0); Monocyte# 0.89 X10^3/uL; Monocyte% 12.6 % (0-10); NRBC Flagged by Analyzer 0 % (0-5); Neutrophil # 4.98 X10^3/uL (2.7-7.7); Neutrophil % 70.7 % (47-70); POSITIVE DIFFERENTIAL YES; POSITIVE MORPHOLOGY YES; Platelet Count 194 K/mm3 (150-450); RBC Distribution Width SD 66.7 fl (35.1-43.9); Red Blood Count 2.68 M/mm3 (4.6-6.2); White Blood Count 7.1 K/mm3 (4.4-11.0)
[2021-12-17] MEDS: Amiodarone 200 MG Tablet 100 MG PO (07:49)
[2021-12-17] MEDS: Pantoprazole Sodium 40 MG Tablet PO (07:49)
[2021-12-17] MEDS: Montelukast 10 MG Tablet PO (07:51)
[2021-12-17] MEDS: Allopurinol 100 MG Tablet PO (07:51)
[2021-12-17] MEDS: Sertraline 50 MG Tablet PO (07:51)
[2021-12-17] MEDS: Midodrine HCl 5 MG Tablet 10 MG PO (07:51)
[2021-12-17] MEDS: Ferrous Sulfate 325 MG Tablet PO (07:51)
[2021-12-17 07:53] LABS: Differential Indicated SCAN CRITERIA MET
--- NOTE | 2021-12-17 07:56 | PCM.DC.SUM ---
Providers Date of Admission: 12/13/21 Date of Discharge: 12/17/21 Primary Care Physician: Dr. Zack Stacy MD Consultations 12/13/21 20:28 Consult: Gastroenterology Routine Consulting Provider: [facility] Reason for Consult: GI bleed, acute blood loss anemia EMERGENT Consult: No MD Notified: Yes Date Notified: 12/13/21 Time Notified: 20:00 Method of Notification: ED Physician Initiated Consult: Nephrology Routine Consulting Provider: Elke Hewitt Reason for Consult: ESRD on HD MWF, admit w/ GI bleed, had HD on 12/13, follows w/ Fam. EMERGENT Consult: No Notified: Yes Date Notified: 12/14/21 Time Notified: 07:59 Method of Notification: Answering Service Reason For Visit: ACUTE GI BLEED, ACUTE BLOOD LOSS ANEMIA Diagnosis Discharge Diagnosis (1) Anemia: Status: Acute Code(s): D64.9 - Anemia, unspecified (2) ESRD (end stage renal disease): Status: Acute Code(s): N18.6 - End stage renal disease (3) COPD (chronic obstructive pulmonary disease): Status: Chronic Code(s): J44.9 - Chronic obstructive pulmonary disease, unspecified Medications at Discharge Home Medications allopurinol 100 mg tablet 100 mg PO DAILY GOUT 05/03/18 aspirin 81 mg chewable tablet 81 mg PO DAILY HEALTH MAINTENANCE 05/03/18 magnesium oxide 400 mg PO BID SUPPLEMENT 05/03/18 nitroglycerin 0.4 mg sublingual tablet 0.4 mg sublingual Q5-15M PRN chest pain 05/03/18 ferrous sulfate 325 mg (65 mg iron) tablet (iron) 325 mg PO BID supplement 11/09/20 sertraline 50 mg tablet 50 mg PO DAILY mood 11/09/20 amiodarone 200 mg tablet 100 mg PO DAILY heart 11/19/20 apixaban 5 mg tablet 5 mg PO BID blood thinner 11/19/20 rosuvastatin 10 mg tablet (Crestor) 10 mg PO QHS cholesterol 11/19/20 albuterol sulfate 2.5 mg/3 mL (0.083 %) solution for nebulization 2.5 mg inhalation PRN PRN COPD 11/23/20 ascorbic acid (vitamin C) 500 mg capsule,extended release (Vitamin C) 500 mg PO DAILY supplement 11/23/20 furosemide 80 mg tablet (Lasix) 40 mg PO BID edema 12/21/20 fluticasone propionate 50 mcg/actuation nasal spray,suspension 2 spray intranasal DAILY ALLERGIES #16 grams 04/06/21 glycopyrrolate 9 mcg-formoterol 4.8 mcg HFA aerosol inhaler (Bevespi Aerosphere) 2 puff inhalation BID PRN SOB #3 ea 07/12/21 carvedilol 6.25 mg tablet (Coreg) 6.25 mg PO BID heart 11/04/21 gabapentin 100 mg capsule 200 mg PO QHS restless leg 11/04/21 midodrine 10 mg tablet 10 mg PO ONCE bp 11/04/21 vericiguat 2.5 mg tablet (Verquvo) 5 mg PO DAILY heart 11/04/21 azithromycin 250 mg tablet 250 mg PO DAILY congestion 12/13/21 guaifenesin 600 mg tablet, extended release 12 hr (Mucinex) 1,200 mg PO BID congestion 12/13/21 levothyroxine 50 mcg tablet 50 mcg PO DAILY thyroid 12/13/21 montelukast 10 mg tablet 10 mg PO DAILY congestion 12/13/21 vitamin B complex-vitamin C-folic acid 0.8 mg tablet (Tawanna-Laura) 1 tab PO DAILY supplement 12/13/21 pantoprazole 40 mg tablet,delayed release 40 mg PO BID #60 tabs 12/17/21 sucralfate 1 gram tablet 1 g PO TIDAC #90 tabs 12/17/21 Hospital Course Operations None Procedures Blood transfusion, Dialysis and - (EGD) Summary of Care Provided Minutes Spent on Discharge: 38 Hospital Course: Mr. Gonzalez is a 76-year-old white male who presented to the emergency department at [facility] on 12/13/2021 with a chief complaint of abnormal labs. The patient is on dialysis at baseline and receives dialysis on Monday, Monday, and Monday. He was told his hemoglobin was low at 5 on his crit at dialysis and was recommended to come to the emergency department. Patient reported on admission that he has a history of anemia and has required blood transfusions in the past, but denied any history of known GI bleeding. He had been on Eliquis and aspirin prior to presentation and wears 4 to 5 L of oxygen at home at baseline. He did report 3 to 4 weeks of ongoing dark black stools with no abdominal cramping or pain and 2 to 3 days of progressively worsening fatigue, malaise, worsening dyspnea with exertion and lightheadedness. Work-up in the ED included T96.9, heart rate 74, BP 103/63, not marked appearing orthostatic vital signs however patient was unable to complete them secondary to debility with significant lightheadedness and dizziness, 100% on 5 L nasal cannula with chronic usage of 4 to 5 L baseline, CBC with WC 7.2, hemoglobin 5.5 similar to earlier in the day at 1600 and prior to this 07/04/2021 hemoglobin 8.1, platelet 236 with lymphopenia, BMP with potassium 3.4, chloride 97, carbon dioxide 36, BUN/creatinine 30/2.57, guaiac occult positive troponin, chest x-ray with moderate cardiomegaly with borderline heart failure, small bilateral costophrenic angle pleural effusions, left lower lobe alveolar possible atelectasis versus infiltrate, pending upon requested evaluation of patient, type and cross initiated per ED physician.? In the ED patient ministered Protonix 40 mg IV x1. In the ED patient ordered 2 u PRBC. He was admitted to the PCU and his licensed sales assistant was consulted for ongoing dialysis while he is hospitalized. Gastroenterology was also consulted and they evaluated him on 12/13/2021. He was taken for an EGD on 12/14/2021 at which time it was found that he has a normal esophagus, oozing gastric ulcers with visible vessel, multiple bleeding angiodysplastic lesions in the stomach, and the duodenum was normal. His gastric ulcers were treated with monopolar probe and his angiodysplastic lesions were treated with heater probe during his procedure. A full liquid diet was started postprocedure and recommendations for Carafate and Protonix 40 mg p.o. twice daily for 8 weeks was made. He was placed on these while hospitalized. It was also recommended that he hold his anticoagulations for 5 days with restart date being 12/20/2021. He received dialysis again on 12/15/2021 but unfortunately his hemoglobin was down to 6.8 and he required another 1 unit transfusion of packed red blood cells on 12/16/2021. Pretransfusion hemoglobin was 6.8 and posttransfusion hemoglobin was 8.6 so in reality he did overcorrect. Follow-up CBC this morning showed a hemoglobin of 7.9 which is more appropriate for his 1 unit transfusion. He is due for dialysis today. I discussed his hemoglobin and overall stability with gastroenterology and they felt he was safe for discharge. As noted above we will continue to hold his aspirin and Eliquis until 12/20/2021. Prescriptions for Protonix and Carafate were sent to his pharmacy. He is to stop his home omeprazole and follow-up with Dr. Mohr within the next 2 weeks. The changes were discussed with the patient prior to discharge and he voiced understanding. Directions were also given in paper format. I did recommend he contact his primary care physician and obtain a CBC to be done in the next week to follow-up with his PCP within the next week. He was discharged home in stable condition on 12/17/2021. Discharge diagnoses: Upper GI bleed Gastric ulcers Gastric angiodysplastic lesions Acute anemia secondary to blood loss Chronic anemia secondary to end-stage renal disease Chronic HFrEF CAD Chronic hypoxic respiratory failure COPD Hypothyroidism End-stage renal disease-HD dependent PAF GERD MARCELO Anxiety Depression Obesity Physical Exam Narrative He is feeling great this morning. Const alert, oriented x3 and no apparent distress Constitutional Narrative: Obese, elderly white male sitting up in bed, eating breakfast watching television, appears comfortable nontoxic General Appearance: cooperative, comfortable, well kempt and well developed Orientation / Consciousness: awake, oriented to person and oriented to time Exam Limitations: no limitations Nutritional Appearance: obese HEENT normocephalic, head/scalp atraumatic and moist oral mucous membranes HEENT Narrative: Moderate hearing loss, Mallampati 2-3, no thrush, dentition is poor Eyes PERRL and EOMs intact bilaterally Eyes Narrative: Conjunctive are mildly pale bilaterally, no scleral icterus Neck no lymphadenopathy and supple Neck Narrative: Trachea midline, no thyroid enlargement Resp normal respiratory effort, no retractions, no use of accessory muscles and clear to auscultation bilaterally Resp Narrative: Diffusely diminished with no adventitious sounds Auscultation: Negative for crackles, rales, rhonchi or wheezes Cardio regular rate, regular rhythm, S1 normal heart sound, S2 normal heart sound, no murmurs, no rub, no gallops and no clicks GI normal to inspection, nondistended, normoactive bowel sounds, soft to palpation and non-tender Extremity no clubbing, cyanosis or edema Extremity Narrative: 2+ pedal pulses Skin no rashes or lesions noted, no wounds, skin turgor normal and no jaundice Skin Narrative: Slightly pale Neuro oriented x3, CN's II-XII intact bilaterally, moves all extremities and no focal motor deficits Speech: speech normal Psych affect normal Psych Narrative: Extremely pleasant and appropriate Weight / BMI Weight Weight: 92.7 kg Body Mass Index (BMI) 31.3 ABG / Lab / Microbiology Data Result Diagrams: 12/17/21 07:31 12/16/21 06:02 Laboratory: Laboratory Results - last 24 hr 12/13/21 16:00: Crossmatch See Detail 12/16/21 11:14: Hgb 8.6 L, Hct 28.2 L 12/17/21 07:31: WBC 7.1, RBC 2.68 L, Hgb 7.9 L, Hct 26.0 L, MCV 97.0 H, MCH 29.5, MCHC 30.4 L, RDW Std Deviation 66.7 H, RDW Coeff of Nick 20.0 H, Plt Count 194, MPV 8.5, Immature Gran % (Auto) 0.400, Neut % (Auto) 70.7 H, Lymph % (Auto) 8.1 L, [place] % (Auto) 12.6 H, Eos % (Auto) 7.2 H, Baso % (Auto) 1.0, Absolute Neuts (auto) 5.0, Absolute Lymphs (auto) 0.57 L, Nucleated RBC % 0 Microbiology: Microbiology 12/13/21 17:40 Stool Stool Occult Blood (ANALIA) - Final Occult Blood Positive D/C Instructions Discharge Diet: Low fat / Low cholesterol and Renal Diet Discharge Activity: Return to Normal Activity Meaningful Use Info Meaningful Use Diagnoses (Choose all that apply): None applicable Discharge Plan Admission Admit Date/Time: 12/13/21 19:56 Primary Reason for Your Visit: anemia Attending Provider: Rosette Dodd Primary Care Provider: Zack Stacy Consulting Providers: Mercedes Lancaster ; Sachin Ulloa ; Elke Hewitt ; Kaylen Galindo Instructions Additional Instructions / Restrictions: 1. Take apixaban or aspirin until 12/20/2021 2. Call primary care physician for follow-up complete blood count to be done in 1 week Discharge Orders/Prescriptions Prescriptions: New pantoprazole 40 mg Tablet,Delayed Release (Dr/Ec) 40 mg PO BID Qty: 60 1RF sucralfate 1 gram Tablet 1 g PO TIDAC Qty: 90 1RF Continued allopurinol 100 mg tablet 100 mg PO DAILY magnesium oxide 400 mg capsule 400 mg PO BID nitroglycerin 0.4 mg tablet, sublingual 0.4 mg SUBLINGUAL Q5-15M PRN (Reason: chest pain) furosemide [Lasix] 80 mg tablet 40 mg PO BID amiodarone 200 mg tablet 100 mg PO DAILY rosuvastatin [Crestor] 10 mg tablet 10 mg PO QHS sertraline 50 mg tablet 50 mg PO DAILY ferrous sulfate [iron] 325 mg (65 mg iron) tablet 325 mg PO BID fluticasone propionate 50 mcg/actuation spray,suspension 2 spray INTRANASAL DAILY Qty: 16 5RF carvedilol [Coreg] 6.25 mg tablet 6.25 mg PO BID Rx Instructions: must administer with a meal/food gabapentin 100 mg capsule 200 mg PO QHS midodrine 10 mg tablet 10 mg PO ONCE Label Comments: per patient he takes before dialysis Rx Instructions: do not give last dose of day after 6PM or within 4 hrs of bedtime Verquvo 2.5 mg tablet 5 mg PO DAILY Label Comments: taking for 2 weeks Rx Instructions: must administer with a meal/food albuterol sulfate 2.5 mg /3 mL (0.083 %) solution for nebulization 2.5 mg inhalation PRN PRN (Reason: COPD) Label Comments: USE 1 VIAL IN NEBULIZER EVERY 4 HOURS NEEDED FOR SHORTNESS OF BREATH OR WHEEZING ascorbic acid (vitamin C) [Vitamin C] 500 mg Capsule, Extended Release 500 mg PO DAILY guaifenesin [Mucinex] 600 mg tablet extended release 12hr 1,200 mg PO BID azithromycin 250 mg tablet 250 mg PO DAILY levothyroxine 50 mcg tablet 50 mcg PO DAILY montelukast 10 mg tablet 10 mg PO DAILY Tawanna-Laura 0.8 mg tablet 1 tab PO DAILY Label Comments: TAKE 1 TABLET BY MOUTH ONCE DAILY Bevespi Aerosphere 9-4.8 mcg HFA aerosol inhaler 2 puff INHALATION BID PRN (Reason: SOB) Qty: 3 3RF Held aspirin 81 mg tablet,chewable 81 mg PO DAILY Hold Instructions: Hold until 12/20/2021 apixaban 5 mg tablet 5 mg PO BID Hold Instructions: Hold until 12/20/2021 Discontinued omeprazole 20 mg tablet,delayed release (DR/EC) 20 mg PO DAILY PRN PRN (Reason: Indigestion) Referrals / Follow Up: Khari Mohr DO [Med Staff - Active Staff] - Within 1 Month (Call as soon as possible after discharge to make an appointment within the next month voicemail with office to call to schedule appointment) Zack Stacy MD [Primary Care Provider] - 12/23/21 8:10 am Disposition Disposition (needs filled in before D/C Order can be placed): Home Health Service Charges/Coding Visit Charges Inpatient E&M: 77370 Disch Hosp
--- NOTE | 2021-12-17 08:00 | PN_ITS ---
Subjective Subjective We have to turn Edward under the upper endoscopy for melanotic stools. He is not have any abdominal pain. He has not had any nausea. He is not having any chest pain or shortness of breath and he is tolerating a diet. Objective Data Objective Data Vital Signs: Vital Signs Temp Pulse Resp BP Pulse Ox O2 Del Method O2 Flow Rate 97.8 F 78 18 97/51 L 78 Nasal Cannula 84 12/17/21 09:33 12/17/21 09:33 12/17/21 09:33 12/17/21 09:33 12/17/21 09:57 12/17/21 09:33 12/17/21 09:57 FiO2 100 12/15/21 21:12 Oxygen Flow Rate (L/min) [At 5 REST with Oxygen] Oxygen Flow Rate (L/min) [ 5 AMBULATING with Oxygen #3] Oxygen Flow Rate (L/min) [ 4 AMBULATING with Oxygen #2] Oxygen Flow Rate (L/min) [ 84 AMBULATING with Oxygen #1] Oxygen Flow Rate (L/min) 3 Oxygen Delivery Method Nasal Cannula Weight: 204 lb 5.896 oz Body Mass Index (BMI) 31.3 Intake & Output: Intake and Output for Last 24 Hours 12/15/21 12/16/21 12/17/21 23:59 23:59 23:59 Intake Total 710 / 710 1150 / 1150 Output Total 3000 / 3000 0 / 0 Balance -2290 / -2290 1150 / 1150 Lab / Micro Data Result Diagrams: 12/17/21 07:31 12/16/21 06:02 Labs: Laboratory Results - last 24 hr 12/17/21 07:31: WBC 7.1, RBC 2.68 L, Hgb 7.9 L, Hct 26.0 L, MCV 97.0 H, MCH 29.5, MCHC 30.4 L, RDW Std Deviation 66.7 H, RDW Coeff of Nick 20.0 H, Plt Count 194, MPV 8.5, Immature Gran % (Auto) 0.400, Neut % (Auto) 70.7 H, Lymph % (Auto) 8.1 L, [place] % (Auto) 12.6 H, Eos % (Auto) 7.2 H, Baso % (Auto) 1.0, Absolute Neuts (auto) 5.0, Absolute Lymphs (auto) 0.57 L, Nucleated RBC % 0, Differential Comment , Platelet Estimate ADEQUATE, RBC Morphology N CHROM, Anisocytosis 1+ Micro: Microbiology 12/13/21 17:40 Stool Stool Occult Blood (ANALIA) - Final Occult Blood Positive Physical Exam Narrative Const: Alert and oriented x3, no apparent distress Cardio: S1, S2, RRR Respiratory: Lung sounds clear anteriorly, no wheezes, rales or rhonchi noted. On O2 at 4 L Abdomen: Soft, rounded, positive bowel sounds Extremities: trace pitting edema noted bilateral lower legs AV fistula left forearm positive thrill and bruit Assessment & Plan Assessment/Plan (1) GI bleed: PLAN: Upper GI bleed likely secondary to peptic ulcer disease with bleeding stigmata. He was treated endoscopically. His hemoglobin has been stable. I am okay with him going back on anticoagulation and antiplatelet therapy as long as soft Protonix twice. Charges/Coding Visit Charges Inpatient E&M: 60262 Subs Hosp L2
--- NOTE | 2021-12-17 08:04 | PN.RENAL_ITS ---
Subjective Subjective Resting in bed eating breakfast. No complaints. No overnight events. Objective Data Objective Data Vital Signs: Vital Signs Temp Pulse Resp BP Pulse Ox O2 Del Method O2 Flow Rate 97.7 F L 84 12 131/71 H 98 Nasal Cannula 4 12/17/21 04:03 12/17/21 07:00 12/17/21 06:51 12/17/21 04:03 12/17/21 06:51 12/17/21 06:51 12/17/21 06:51 FiO2 100 12/15/21 21:12 Oxygen Flow Rate (L/min) 4 Oxygen Delivery Method Nasal Cannula Weight: 92.7 kg Body Mass Index (BMI) 31.3 Intake & Output: Intake and Output for Last 24 Hours 12/15/21 12/16/21 12/17/21 23:59 23:59 23:59 Intake Total 710 / 710 1150 / 1150 Output Total 3000 / 3000 0 / 0 Balance -2290 / -2290 1150 / 1150 Lab / Micro Data Result Diagrams: 12/17/21 07:31 12/16/21 06:02 Labs: Laboratory Results - last 24 hr 12/13/21 16:00: Crossmatch See Detail 12/16/21 11:14: Hgb 8.6 L, Hct 28.2 L 12/17/21 07:31: WBC 7.1, RBC 2.68 L, Hgb 7.9 L, Hct 26.0 L, MCV 97.0 H, MCH 29.5, MCHC 30.4 L, RDW Std Deviation 66.7 H, RDW Coeff of Nick 20.0 H, Plt Count 194, MPV 8.5, Immature Gran % (Auto) 0.400, Neut % (Auto) 70.7 H, Lymph % (Auto) 8.1 L, [place] % (Auto) 12.6 H, Eos % (Auto) 7.2 H, Baso % (Auto) 1.0, Absolute Neuts (auto) 5.0, Absolute Lymphs (auto) 0.57 L, Nucleated RBC % 0 Micro: Microbiology 12/13/21 17:40 Stool Stool Occult Blood (ANALIA) - Final Occult Blood Positive Physical Exam Narrative Const: Alert and oriented x3, no apparent distress Cardio: S1, S2, RRR Respiratory: Lung sounds clear anteriorly, no wheezes, rales or rhonchi noted. On O2 at 4 L Abdomen: Soft, rounded, positive bowel sounds Extremities: trace pitting edema noted bilateral lower legs AV fistula left forearm positive thrill and bruit Assessment & Plan Assessment/Plan (1) Anemia: (2) ESRD (end stage renal disease): (3) COPD (chronic obstructive pulmonary disease): PLAN: Plan - ESRD on hemodialysis Monday at [facility]: For dialysis today, possibly to be discharged this morning and patient to go to his kidney center, [facility] with chair time of 10am. If patient is not discharged this morning then will arrange for dialysis in hospital. - Acute anemia: Hemoglobin 5 in the emergency room. He did receive PRBC and hemoglobin improved to 7. Hemoglobin is 6.8 12/16, he received PRBC. GI following. Patient had EGD: Multiple bleeding angiodysplastic lesions in stomach treated with heater probe, normal esophagus, oozing gastric ulcers with a visible vessel. No NSAIDs, on sucralfate 4 times daily for 2 months, Protonix for 8 weeks. Patient receives FERMIN with dialysis. Hgb 7.9 this am -Blood pressures acceptable, patient is not on any antihypertensives. He rec eives midodrine predialysis and will continue. -COPD and is on O2 at 4 L at all times.
[2021-12-17 08:23] LABS: Anisocytosis 1+; Platelet Estimate ADEQUATE (ADEQ); Red Cell Morphology N CHROM NORMAL (NORM C&C)
[2021-12-17 09:33] VITALS: BP 97/51; PULSE 78; RESP 18; TEMP 36.6; O2SAT 100
[2021-12-17 09:57] VITALS: O2SAT 3; O2SAT 74; O2SAT 78; O2SAT 88; O2SAT 92
--- NOTE | 2021-12-17 10:47 | CASEMGMT ---
HALEY BLANK NOTE: Pt being discharged home. Home O2 testing completed and pt qualifies for O2 @ 5 l/m continuously. [place] [facility] [place] [facility] Pt given portable O2 tank from [facility] supply. HALEY BLANK explained to home O2 set-up process. She denies having any questions or further discharge needs. Call placed to Maxine @ [facility]. VM left for her re: pt being discharged today and that he was d/c'd home on O2. Claudio JACKSONN HALEY BLANK
== END 2021-12-17 09:32 | disposition home health service (06) | DRG 377 ==
LOC: ED 17:30 → PCU 20:10
PROVIDERS: Internal Medicine; Internal Medicine Gastroenterology; Nurse Practitioner Adult Health; Admitting Provider Family Medicine; Emergency Provider Student in an Organized Health Care Education/Training Program; PCP Family Medicine; Visit Provider Internal Medicine
PROC: 0DJ08ZZ Inspection of Upper Intestinal Tract, Via Natural or Artificial Opening Endoscopic (ICD-10-PCS; CPT 43235; principal; 2021-12-14 17:10)
DX: K31.811 Angiodysplasia of stomach and duodenum with bleeding (principal); N18.6 End stage renal disease; I13.2 Hypertensive heart and chronic kidney disease with heart failure and with stage 5 chronic kidney disease, or end stage renal disease; D62 Acute posthemorrhagic anemia; I25.810 Atherosclerosis of coronary artery bypass graft(s) without angina pectoris; J96.11 Chronic respiratory failure with hypoxia; I50.22 Chronic systolic (congestive) heart failure; D63.1 Anemia in chronic kidney disease; I95.9 Hypotension, unspecified; J43.9 Emphysema, unspecified; I48.0 Paroxysmal atrial fibrillation; Z99.2 Dependence on renal dialysis; K21.9 Gastro-esophageal reflux disease without esophagitis; E78.00 Pure hypercholesterolemia, unspecified; E03.9 Hypothyroidism, unspecified; G47.33 Obstructive sleep apnea (adult) (pediatric); D50.9 Iron deficiency anemia, unspecified; M10.9 Gout, unspecified; F41.9 Anxiety disorder, unspecified; I25.2 Old myocardial infarction; K25.4 Chronic or unspecified gastric ulcer with hemorrhage; N40.0 Benign prostatic hyperplasia without lower urinary tract symptoms; F32.A Depression, unspecified; E66.9 Obesity, unspecified; Z99.81 Dependence on supplemental oxygen; Z87.891 Personal history of nicotine dependence; Z79.01 Long term (current) use of anticoagulants; Z79.82 Long term (current) use of aspirin; Z79.890 Hormone replacement therapy; Z79.899 Other long term (current) drug therapy; Z95.5 Presence of coronary angioplasty implant and graft; Z96.652 Presence of left artificial knee joint; I49.3 Ventricular premature depolarization; Z23 Encounter for immunization
CPT/HCPCS: 36415; 71045; 80048; 80053; 80069; 82274; 83735; 84100; 85014; 85018; 85025; 86850; 86900; 86901; 86920; 86922; 90937; 93005; 94640; 94760; 97110; 97162; 97166; 97530; 97535; 99251; 99285; J7040; J7050; P9016; 90686; A4216; G0257; G0463; Q5106

== ENCOUNTER → 2021-12-13 | Outpatient (CLI) | payer MEDICARE, OTHER, SELFPAY ==
[2021-12-13 11:12] LABS: Hematocrit 16.9 % (40-54); POSITIVE COUNT YES
== END | disposition home or self-care (01) ==
LOC: LABSPEC 10:47
PROVIDERS: PCP Family Medicine; Visit Provider Internal Medicine Nephrology
DX: D64.9 Anemia, unspecified (principal)
CPT/HCPCS: 85014; 85018

== ENCOUNTER → 2022-01-18 | Outpatient (CLI) | payer MEDICARE, OTHER, SELFPAY ==
[2022-01-18] MEDS: 0.9% NaCl Peripheral Flush Adult/Peds IV (12:20)
[2022-01-18 12:26] VITALS: PULSE 99; RESP 16; TEMP 36.2; O2SAT 93; BMI 29.6
[2022-01-18 12:50] VITALS: BP 87/42; PULSE 74; RESP 16; TEMP 36.4; O2SAT 93
[2022-01-18 13:50] VITALS: BP 95/39; PULSE 70; RESP 16; TEMP 36; O2SAT 95
[2022-01-18 14:54] VITALS: BP 101/45; PULSE 72; TEMP 35.9
== END | disposition home or self-care (01) ==
LOC: MEDOUTP 12:04
PROVIDERS: PCP Family Medicine; Referring Provider Internal Medicine Nephrology; Visit Provider Internal Medicine Nephrology
DX: D64.9 Anemia, unspecified (principal)
CPT/HCPCS: 36415; 36430; 86850; 86900; 86901; 86920; 86922; J7040; P9016; A4216

== ENCOUNTER 2022-02-02 13:27 | Inpatient (IN) | payer MEDICARE, OTHER, SELFPAY ==
[2022-02-02] VITALS (14 sets, daily range): BP systolic 91–138; BP diastolic 47–101; PULSE 73–779; RESP 16–18; TEMP 36.1–36.7; O2SAT 88–100; BMI 30.4; BMI 29.5
--- NOTE | 2022-02-02 15:09 | EKG12_ITS ---
Test Reason : Blood Pressure : / mmHG Vent. Rate : 078 BPM Atrial Rate : 078 BPM P-R Int : 246 ms QRS Dur : 104 ms QT Int : 352 ms P-R-T Axes : 054 -55 101 degrees QTc Int : 401 ms Sinus rhythm with 1st degree A-V block Left axis deviation Low voltage QRS Inferior infarct , age undetermined Abnormal ECG Confirmed by JAMMIE GONZALEZ, ELIGIO ([id number]), purchase request editor LEONOR WALTER ([id number]) on 02/07/2022 11:42:31 AM Referred By: RIANA Confirmed By:ELIGIO AGUDELO MD
--- NOTE | 2022-02-02 15:12 | EX.ED.DYSGE1 ---
HPI History of Present Illness Chief Complaint: General Illness Detail of Chief Complaint: anemia and dark stool Informant: patient and family Onset/Context/Timing Onset: Days Context: Gradual Onset Timing: Continuous Quality: dark stool and blood on stool Location: GI Current Severity: Moderate Maximum Severity: Moderate Worsened by: pt on Apixaban Relieved by: nothing Associated Symptoms Associated Symptoms: dyspnea, dypnea on exertion Narrative Narrative: Patient is a 76-year-old male who was sent to the ER for HgB of 6.5. Blood was drawn on Monday during dialysis. He does have signs and symptoms of anemia. He reports blood with BM and dark brown stool. He was diagnosed one month ago by Dr. Mohr with an Upper GI Bleed.He denies any cardiac symptoms. Prior similar symptoms: Yes Recent Illness/Hospitalization: Yes [facility] Medical History Abnormal chest CT Anemia Anxiety Arthritis Back pain BPH (benign prostatic hyperplasia) Congestive heart failure (CHF) COPD (chronic obstructive pulmonary disease) COPD (chronic obstructive pulmonary disease) Coronary artery disease involving coronary bypass graft CPAP (continuous positive airway pressure) dependence Depression Emphysema, unspecified Erectile dysfunction ESRD (end stage renal disease) Former smoker GERD (gastroesophageal reflux disease) Gout High cholesterol History of atrial fibrillation History of edema History of heart attack HLD (hyperlipidemia) Hypertension Lumbar disc disease with radiculopathy Obesity On home oxygen therapy MARCELO (obstructive sleep apnea) Psychosexual dysfunction with inhibited sexual excitement Sleep apnea Home Medications allopurinol 100 mg tablet 100 mg PO DAILY GOUT 05/03/18 [History Last Taken 12/13/21] aspirin 81 mg chewable tablet 81 mg PO DAILY HEALTH MAINTENANCE 05/03/18 [History Last Taken 12/13/21] nitroglycerin 0.4 mg sublingual tablet 0.4 mg sublingual Q5-15M PRN chest pain 05/03/18 [History Last Taken Unknown] ferrous sulfate 325 mg (65 mg iron) tablet (iron) 325 mg PO BID supplement 11/09/20 [History Last Taken 12/13/21] sertraline 50 mg tablet 50 mg PO DAILY mood 11/09/20 [History Last Taken 12/13/21] amiodarone 200 mg tablet 100 mg PO DAILY heart 11/19/20 [History Last Taken 12/13/21] apixaban 5 mg tablet 5 mg PO BID blood thinner 11/19/20 [History Last Taken 12/13/21] rosuvastatin 10 mg tablet (Crestor) 10 mg PO QHS cholesterol 11/19/20 [History Last Taken 12/12/21] albuterol sulfate 2.5 mg/3 mL (0.083 %) solution for nebulization 2.5 mg inhalation PRN PRN COPD 11/23/20 [History Last Taken 12/13/21] ascorbic acid (vitamin C) 500 mg capsule,extended release (Vitamin C) 500 mg PO DAILY supplement 11/23/20 [History Last Taken 12/13/21] fluticasone propionate 50 mcg/actuation nasal spray,suspension 2 spray intranasal DAILY ALLERGIES #16 grams 04/06/21 [Rx Last Taken 12/13/21] glycopyrrolate 9 mcg-formoterol 4.8 mcg HFA aerosol inhaler ([employer] Aerosphere) 2 puff inhalation BID PRN SOB #3 ea 07/12/21 [Rx Last Taken 12/12/21] carvedilol 6.25 mg tablet (Coreg) 6.25 mg PO DAILY heart 11/04/21 [History Last Taken 12/13/21] gabapentin 100 mg capsule 200 mg PO QHS restless leg 11/04/21 [History Last Taken 12/12/21] midodrine 10 mg tablet 10 mg PO MOWEFR bp 11/04/21 [History Last Taken 12/13/21] vericiguat 2.5 mg tablet (Verquvo) 5 mg PO DAILY heart 11/04/21 [History Last Taken 12/13/21] guaifenesin 600 mg tablet, extended release 12 hr (Mucinex) 1,200 mg PO BID congestion 12/13/21 [History Last Taken 12/13/21] levothyroxine 50 mcg tablet 50 mcg PO DAILY thyroid 12/13/21 [History Last Taken 12/13/21] montelukast 10 mg tablet 10 mg PO DAILY congestion 12/13/21 [History Last Taken 12/13/21] vitamin B complex-vitamin C-folic acid 0.8 mg tablet (Tawanna-Laura) 1 tab PO DAILY supplement 12/13/21 [History Last Taken 12/12/21] pantoprazole 40 mg tablet,delayed release 40 mg PO BID #60 tabs 12/17/21 [Rx Last Taken Unknown] sucralfate 1 gram tablet 1 g PO TIDAC #90 tabs 12/17/21 [Rx Last Taken Unknown] Allergy/AdvReac Type Severity Reaction Status Date / Time Penicillins Allergy Severe Rash, 105 Verified 02/02/22 13:30 temp amlodipine Allergy itching Verified 02/02/22 13:30 and rash prednisone Allergy Other Verified 02/02/22 13:30 aspirin AdvReac Mild rash Verified 02/02/22 13:30 Family History Mother , 84 y.o. Hypertension CVA (cerebral vascular accident) Father , 70 y.o. Heart disease Hodgkin disease Sister , 72 y.o. Heart disease Surgical History H/O left cataract extraction History of cardiac catheterization History of colonoscopy History of coronary artery stent placement History of heart artery stent History of heart surgery History of knee replacement procedure of left knee History of open heart surgery (~08/2020) History of total right knee replacement S/P arteriovenous (AV) fistula repair (~12/2020) Social History household members: spouse housing: house pets and animals: No Smoking Status: Former smoker second hand exposure: No alcohol intake: current alcohol intake frequency: holidays/special occasions only ROS ROS ED Constitutional Constitutional ED: Denies chills, fever(s), subjective, sweats or weight loss Eyes Eyes: Denies blurry vision, change in vision or diplopia ENT ENT ED: Denies ear pain, rhinorrhea or sore throat Cardiovascular Cardiovascular: Denies chest pain, orthopnea, palpitations, paroxysmal nocturnal dyspnea or racing heartbeat Respiratory/Chest Respiratory/Chest: Reports dyspnea and dyspnea on exertion; Denies cough, orthopnea or paroxysmal nocturnal dyspnea Gastrointestinal Gastrointestinal: Denies abdominal pain, constipation, diarrhea, nausea or vomiting Musculoskeletal Musculoskeletal: Denies arthralgias, back pain, myalgias or neck pain Integumentary Denies abscess, Abrasions or rash Neurologic Neurologic: Reports weakness; Denies headache(s) or paresthesias Psychiatric Psychiatric: Denies anxiety or depression Endocrine Endocrinology: Denies cold intolerance or heat intolerance Hematologic/Lymphatic Hematologic/Lymphatic: Reports systems reviewed and no addt'l complaints, except as documented, anemia and easy bruising EXAM Physical Exam Const Vital Signs: 02/02/22 13:28 02/02/22 13:36 02/02/22 15:28 Temperature 97.2 F L Temperature Source Temporal Pulse Rate 73 77 Respiratory Rate 16 16 Blood Pressure 138/78 H Blood Pressure Mean 98 Pulse Ox 88 93 99 Oxygen Delivery Method Room Air Nasal Cannula Nasal Cannula Oxygen Flow Rate (L/min) 2 3.5 Positive well nourished and well developed General Appearance ED: well developed, NAD and pallor; Negative for cyanotic or diaphoretic HEENT Reports moist mucous membranes HEENT Narrative: Head is atraumatic and normal cephalic. ears are normal. mucosa is moist. Eyes PERRL and EOMs intact bilaterally General Eye ED: Yes pale conjunctiva; Negative for scleral icterus Neck no lymphadenopathy, supple and no JVD Chest Wall inspection of chest normal and palpation of chest normal Resp normal respiratory effort and clear to auscultation bilaterally Cardio regular rate, regular rhythm, S1 normal heart sound, S2 normal heart sound and no murmurs GI normal to inspection, nondistended, normoactive bowel sounds, non-tender, non-distended and no masses; Negative for hepatosplenomegaly Palpation: soft; Negative for tender Rectal Exam: normal sphincter tone, prostate normal and other Other Details: Stool is dark and maroon with dark blood mixed in stool. Back/Spine no CVA tenderness Cervical Spine: Negative for cervical spine tenderness Thoracic Spine / Upper Back: Negative for thoracic spinal tenderness Extremity General Extremety ED: Yes edema; Negative for tenderness General Extremity: edema Neuro oriented x3, CN's II-XII intact bilaterally and no sensory deficits noted Sensorium / Orientation: alert Motor Exam: strength 5/5 throughout Psych mental status grossly normal Skin no rashes or lesions noted and no wounds General Skin Exam: pallor; Negative for jaundice MDM MDM MDM Narrative Medical decision making narrative: With history of recent diagnoses of GI bleed suspect patient is actively bleeding again. Will type and screen and type and cross since patient is symptomatic and HgB is less then & Patient will require admission and will consult GI, Dr. Mohr. appropriate blood tests were ordered. Will need to determine why patient is on apixaban. Lab Data Attestation: I reviewed the patient's lab results. Lab results narrative: Hemoglobin is 6.9. Basic metabolic panel is remarked for creatinine of 2.05. Labs: Laboratory Results - last 24 hr 02/02/22 02/02/22 02/02/22 15:25 15:25 15:25 WBC 6.9 RBC 2.21 L Hgb 6.9 L Hct 22.2 L MCV 100.5 H MCH 31.2 MCHC 31.1 L RDW Std Deviation 71.3 H RDW Coeff of Nick 19.4 H Plt Count 206 MPV 8.5 Differential Comment SCANNED Sodium 139 Potassium 3.2 L Chloride 98 Carbon Dioxide 38.0 H Anion Gap 3 L BUN 17 Creatinine 2.05 H Estim Creat Clear Calc 29.11 Est GFR (MDRD) Af Amer 41 L Est GFR (MDRD) Non-Af 34 L BUN/Creatinine Ratio 8.3 L Glucose 102 Calcium 8.4 L Crossmatch See Detail EKG Initial EKG: Attestation: I personally reviewed and interpreted this EKG as follows: Interpretation: Sinus Rhythm (Patient is a first-degree block with a ventricular of 78. Speculator to left. UT interval 246 ms. Cures duration 104 ms. QT duration 3 and 52 ms. There is decreased anterior force.) Discharge Plan Triage Chief Complaint: General Illness ED Provider: Juanito Daigle Dx/Rx/DC Orders Clinical Impression: Acute GI bleeding, MARCELO (obstructive sleep apnea), Coronary atherosclerosis of jamul coronary artery, Symptomatic anemia, Signs and symptoms of anemia, Transfusion of blood during current hospitalisation, End-stage renal disease on hemodialysis Prescriptions: No Action allopurinol 100 mg tablet 100 mg PO DAILY aspirin 81 mg tablet,chewable 81 mg PO DAILY Hold Instructions: Hold until 12/20/2021 nitroglycerin 0.4 mg tablet, sublingual 0.4 mg SUBLINGUAL Q5-15M PRN (Reason: chest pain) amiodarone 200 mg tablet 100 mg PO DAILY rosuvastatin [Crestor] 10 mg tablet 10 mg PO QHS apixaban 5 mg tablet 5 mg PO BID Hold Instructions: Hold until 12/20/2021 sertraline 50 mg tablet 50 mg PO DAILY ferrous sulfate [iron] 325 mg (65 mg iron) tablet 325 mg PO BID fluticasone propionate 50 mcg/actuation spray,suspension 2 spray INTRANASAL DAILY Qty: 16 5RF carvedilol [Coreg] 6.25 mg tablet 6.25 mg PO DAILY Rx Instructions: must administer with a meal/food gabapentin 100 mg capsule 200 mg PO QHS midodrine 10 mg tablet 10 mg PO MOWEFR Label Comments: per patient he takes before dialysis Rx Instructions: do not give last dose of day after 6PM or within 4 hrs of bedtime Verquvo 2.5 mg tablet 5 mg PO DAILY Label Comments: taking for 2 weeks Rx Instructions: must administer with a meal/food albuterol sulfate 2.5 mg /3 mL (0.083 %) solution for nebulization 2.5 mg inhalation PRN PRN (Reason: COPD) Label Comments: USE 1 VIAL IN NEBULIZER EVERY 4 HOURS NEEDED FOR SHORTNESS OF BREATH OR WHEEZING ascorbic acid (vitamin C) [Vitamin C] 500 mg Capsule, Extended Release 500 mg PO DAILY guaifenesin [Mucinex] 600 mg tablet extended release 12hr 1,200 mg PO BID levothyroxine 50 mcg tablet 50 mcg PO DAILY montelukast 10 mg tablet 10 mg PO DAILY Tawanna-Laura 0.8 mg tablet 1 tab PO DAILY Label Comments: TAKE 1 TABLET BY MOUTH ONCE DAILY pantoprazole 40 mg Tablet,Delayed Release (Dr/Ec) 40 mg PO BID Qty: 60 1RF sucralfate 1 gram Tablet 1 g PO TIDAC Qty: 90 1RF [employer] Aerosphere 9-4.8 mcg HFA aerosol inhaler 2 puff INHALATION BID PRN (Reason: SOB) Qty: 3 3RF Primary Care Provider: Zack Stacy Referrals: Zack Stacy MD [Primary Care Provider] - Disposition Disposition: Acute Care Hospital [facility]
[2022-02-02 15:39] LABS: Hematocrit 22.2 % (40-54); Hemoglobin 6.9 g/dL (13.0-16.5); Mean Corp Hgb Conc 31.1 g/dL (32-36); Mean Corpuscular Hgb 31.2 pg (27.0-32.0); Mean Corpuscular Volume 100.5 fL (80-94); Mean Platelet Vol. 8.5 fl (6.2-12.0); POSITIVE MORPHOLOGY YES; Platelet Count 206 K/mm3 (150-450); RBC Distribution Width CV 19.4 % (11.6-14.6); RBC Distribution Width SD 71.3 fl (35.1-43.9); Red Blood Count 2.21 M/mm3 (4.6-6.2); White Blood Count 6.9 K/mm3 (4.4-11.0)
[2022-02-02 15:43] LABS: Scan Indicated on CBC? Y/N YES- FLAGS NOTED
[2022-02-02 15:52] LABS: Anion Gap 3 (5-15); BUN 17 mg/dL (7-18); BUN/Creat Ratio 8.3 RATIO (10-20); Calcium,Total 8.4 mg/dL (8.5-10.1); Chloride 98 mmol/L (98-107); Creatinine, Serum 2.05 mg/dL (0.70-1.30); EST Glomerular Filtration Rate 34 mL/min (>60); Est Glom Filt Rate - Afr Amer 41 mL/min (>60); Estimated Creatinine Clearance 29.11 ml/min; Glucose 102 mg/dL (74-106); Potassium 3.2 mmol/L (3.5-5.1); Sodium Level 139 mmol/L (136-145)
[2022-02-02 16:03] LABS: Differential Comment SCANNED
[2022-02-02 16:20] LABS: Lactic Acid 0.7 mmol/L (0.4-1.9)
--- NOTE | 2022-02-02 16:45 | PCM.HP.STD ---
HPI - General General Date of Admission: 02/02/22 Date of Service: 02/02/22 Chief Complaint: Anemia HPI Narrative ANGIE SINGH, is a 76 M who presents to the emergency room at [facility] at the direction of his supervisor facepiece line due to a low hemoglobin of 6.5 that was resulted from blood drawn this Monday. Patient states that he has dark stools, he is taking iron however, patient was hospitalized in December for an upper GI bleed and he had angiodysplastic areas as well as a gastric ulcer. Patient denies any hematemesis, he denies any bright red rectal bleeding. Hemoccult of the patient's stool in the ER was positive for blood, CBC showed a hemoglobin of 6.9, patient's chemistry profile showed a potassium of 3.2 and a creatinine of 2.05. I talked to Dr. Mohr by phone today, it is unknown whether the patient could have an upper endoscopy done today versus wait till Monday, at this time patient will be kept n.p.o. until I know if he is able to have a scope done today. Patient will be admitted to [facility], he will be given 1 unit of packed red blood cells, every 6 hour H&H's will be performed. Patient's Eliquis will be held, it appears he takes Eliquis for paroxysmal A. fib. [facility] Medical History Abnormal chest CT Anemia Anxiety Arthritis Back pain BPH (benign prostatic hyperplasia) Congestive heart failure (CHF) COPD (chronic obstructive pulmonary disease) COPD (chronic obstructive pulmonary disease) Coronary artery disease involving coronary bypass graft CPAP (continuous positive airway pressure) dependence Depression Emphysema, unspecified Erectile dysfunction ESRD (end stage renal disease) Former smoker GERD (gastroesophageal reflux disease) Gout High cholesterol History of atrial fibrillation History of edema History of heart attack HLD (hyperlipidemia) Hypertension Lumbar disc disease with radiculopathy Obesity On home oxygen therapy MARCELO (obstructive sleep apnea) Psychosexual dysfunction with inhibited sexual excitement Sleep apnea Home Medications allopurinol 100 mg tablet 100 mg PO DAILY GOUT 05/03/18 [History Last Taken 12/13/21] aspirin 81 mg chewable tablet 81 mg PO DAILY HEALTH MAINTENANCE 05/03/18 [History Last Taken 12/13/21] nitroglycerin 0.4 mg sublingual tablet 0.4 mg sublingual Q5-15M PRN chest pain 05/03/18 [History Last Taken Unknown] ferrous sulfate 325 mg (65 mg iron) tablet (iron) 325 mg PO BID supplement 11/09/20 [History Last Taken 12/13/21] sertraline 50 mg tablet 50 mg PO DAILY mood 11/09/20 [History Last Taken 12/13/21] amiodarone 200 mg tablet 100 mg PO DAILY heart 11/19/20 [History Last Taken 12/13/21] apixaban 5 mg tablet 5 mg PO BID blood thinner 11/19/20 [History Last Taken 12/13/21] rosuvastatin 10 mg tablet (Crestor) 10 mg PO QHS cholesterol 11/19/20 [History Last Taken 12/12/21] albuterol sulfate 2.5 mg/3 mL (0.083 %) solution for nebulization 2.5 mg inhalation PRN PRN COPD 11/23/20 [History Last Taken 12/13/21] ascorbic acid (vitamin C) 500 mg capsule,extended release (Vitamin C) 500 mg PO DAILY supplement 11/23/20 [History Last Taken 12/13/21] fluticasone propionate 50 mcg/actuation nasal spray,suspension 2 spray intranasal DAILY ALLERGIES #16 grams 04/06/21 [Rx Last Taken 12/13/21] glycopyrrolate 9 mcg-formoterol 4.8 mcg HFA aerosol inhaler ([employer] Aerosphere) 2 puff inhalation BID PRN SOB #3 ea 07/12/21 [Rx Last Taken 12/12/21] carvedilol 6.25 mg tablet (Coreg) 6.25 mg PO DAILY heart 11/04/21 [History Last Taken 12/13/21] gabapentin 100 mg capsule 200 mg PO QHS restless leg 11/04/21 [History Last Taken 12/12/21] midodrine 10 mg tablet 10 mg PO MOWEFR bp 11/04/21 [History Last Taken 12/13/21] vericiguat 2.5 mg tablet (Verquvo) 5 mg PO DAILY heart 11/04/21 [History Last Taken 12/13/21] guaifenesin 600 mg tablet, extended release 12 hr (Mucinex) 1,200 mg PO BID congestion 12/13/21 [History Last Taken 12/13/21] levothyroxine 50 mcg tablet 50 mcg PO DAILY thyroid 12/13/21 [History Last Taken 12/13/21] montelukast 10 mg tablet 10 mg PO DAILY congestion 12/13/21 [History Last Taken 12/13/21] vitamin B complex-vitamin C-folic acid 0.8 mg tablet (Tawanna-Laura) 1 tab PO DAILY supplement 12/13/21 [History Last Taken 12/12/21] pantoprazole 40 mg tablet,delayed release 40 mg PO BID #60 tabs 12/17/21 [Rx Last Taken Unknown] sucralfate 1 gram tablet 1 g PO TIDAC #90 tabs 12/17/21 [Rx Last Taken Unknown] Allergy/AdvReac Type Severity Reaction Status Date / Time Penicillins Allergy Severe Rash, 105 Verified 02/02/22 13:30 temp amlodipine Allergy itching Verified 02/02/22 13:30 and rash prednisone Allergy Other Verified 02/02/22 13:30 aspirin AdvReac Mild rash Verified 02/02/22 13:30 Family History Mother , 84 y.o. Hypertension CVA (cerebral vascular accident) Father , 70 y.o. Heart disease Hodgkin disease Sister , 72 y.o. Heart disease Surgical History H/O left cataract extraction History of cardiac catheterization History of colonoscopy History of coronary artery stent placement History of heart artery stent History of heart surgery History of knee replacement procedure of left knee History of open heart surgery (~08/2020) History of total right knee replacement S/P arteriovenous (AV) fistula repair (~12/2020) Social History household members: spouse housing: house pets and animals: No Smoking Status: Former smoker second hand exposure: No alcohol intake: current alcohol intake frequency: holidays/special occasions only ROS Constitutional Constitutional: Denies anorexia, change in weight, chills, fatigue, fever(s), malaise, night sweats or weakness Eyes Eyes: Denies blurry vision, change in vision, discharge from eye(s) or eye pain Cardiovascular Cardiovascular: Denies chest pain, claudication, dyspnea on exertion, edema, lightheadedness or palpitations Respiratory/Chest Respiratory/Chest: Denies cough, excessive phlegm production, hemoptysis, productive cough, shortness of breath at rest or shortness of breath with exertion Gastrointestinal Gastrointestinal: Reports other Details: Patient states his stools have been dark but not black, he does take iron ; Denies abdominal pain, coffee ground emesis, constipation, diarrhea, hematemesis, hematochezia, nausea or vomiting Genitourinary Genitourinary: Denies dysuria, hematuria, urinary frequency, urinary hesitancy, urinary incontinence or urinary urgency Musculoskeletal Musculoskeletal: Denies back pain, joint pain, joint stiffness, joint swelling, myalgias or neck pain Neurologic Neurologic: Denies abnormal gait, abnormal speech, confusion, disequilibrium, dizziness, focal weakness, headache(s), loss of vision, numbness, other visual disturbances, paresthesias, syncope or tingling Psychiatric Psychiatric: Denies anxiety, cognitive impairment, depression, irritability, mood swings or suicidal ideation Endocrine Endocrinology: Denies change in body appearance, cold intolerance, excessive sweating, heat intolerance, polydipsia or polyuria Hematologic/Lymphatic Hematologic/Lymphatic: Denies none, anemia, easy bleeding, easy bruising or lymphadenopathy Allergic/Immunologic Allergic/Immunologic: Denies rhinitis, urticaria, eczemia or asthma Vital Signs Vital Signs Vital Signs: 02/02/22 13:28 02/02/22 13:36 02/02/22 15:28 Temperature 97.2 F L Temperature Source Temporal Pulse Rate 73 77 Respiratory Rate 16 16 Blood Pressure 138/78 H Blood Pressure Mean 98 Pulse Ox 88 93 99 Oxygen Delivery Method Room Air Nasal Cannula Nasal Cannula Oxygen Flow Rate (L/min) 2 3.5 02/02/22 16:26 Temperature 97.2 F L Temperature Source Temporal Pulse Rate 75 Respiratory Rate 16 Blood Pressure 95/60 Blood Pressure Mean 71 Pulse Ox 97 Oxygen Delivery Method Nasal Cannula Oxygen Flow Rate (L/min) 3.5 Weight Weight: 87.997 kg Body Mass Index (BMI) 30.4 Physical Exam Const alert, oriented x3 and no apparent distress Constitutional Narrative: Patient appears his stated age General Appearance: cooperative, well kempt and well developed Orientation / Consciousness: awake, oriented to person, oriented to place and oriented to time HEENT normocephalic, head/scalp atraumatic, hearing grossly normal bilaterally and moist oral mucous membranes Eyes PERRL, EOMs intact bilaterally and conjunctivae normal Neck supple, no JVD, thyroid normal and no carotid bruits General: trachea midline Resp normal respiratory effort, no retractions, no use of accessory muscles and clear to auscultation bilaterally Auscultation: Negative for rales, rhonchi or wheezes Cardio regular rate, regular rhythm, S1 normal heart sound, S2 normal heart sound, no murmurs, no rub and no gallops GI normal to inspection, nondistended, normoactive bowel sounds, soft to palpation, non-tender and non-distended Extremity no clubbing, cyanosis or edema Skin no rashes or lesions noted General Skin Exam: no breakdown Neuro oriented x3, CN's II-XII intact bilaterally, moves all extremities, no focal motor deficits and no sensory deficits noted Sensorium / Orientation: awake and alert Speech: speech normal Psych affect normal Results Lab / Micro Data Result Diagrams: 02/02/22 15:25 02/02/22 15:25 Labs: Laboratory Results - last 24 hr 02/02/22 15:25: WBC 6.9, RBC 2.21 L, Hgb 6.9 L, Hct 22.2 L, MCV 100.5 H, MCH 31.2, MCHC 31.1 L, RDW Std Deviation 71.3 H, RDW Coeff of Nick 19.4 H, Plt Count 206, MPV 8.5, Differential Comment SCANNED 02/02/22 15:25: Sodium 139, Potassium 3.2 L, Chloride 98, Carbon Dioxide 38.0 H, Anion Gap 3 L, BUN 17, Creatinine 2.05 H, Estim Creat Clear Calc 29.11, Est GFR (MDRD) Af Amer 41 L, Est GFR (MDRD) Non-Af 34 L, BUN/Creatinine Ratio 8.3 L, Glucose 102, Calcium 8.4 L 02/02/22 15:25: Lactic Acid 0.7 02/02/22 15:25: Blood Type AB POSITIVE, Antibody Screen NEGATIVE, Crossmatch See Detail Micro: Microbiology 02/02/22 15:14 Stool Stool Occult Blood (ANALIA) - Final Occult Blood Positive Assessment & Plan Assessment/Plan (1) Upper GI bleed: PLAN: Plan 1. Upper GI bleed-patient's hemoglobin has not changed significantly from last Monday, I do not know if he is actively bleeding at this time, he will need an upper endoscopy performed-patient will be admitted to [facility], he will be given 1 unit of packed red blood cells, patient's Eliquis will be stopped, he will be placed on IV Protonix, he will continue his Carafate, he will be seen in consultation by GI and undergo endoscopy today. Patient's aspirin will be held at this time also. #2 acute on chronic anemia-suspected to be secondary to upper GI bleed, patient will undergo endoscopy today, patient will be transfused 1 unit of packed red blood cells #3 end-stage renal disease on dialysis-patient is next dialysis day will be this Monday, he will need a nephrology consultation if he is still in the hospital on Monday. #4 paroxysmal atrial fibrillation-patient will need to stop his Eliquis for now #5 hypothyroidism-patient is on Synthroid #6 chronic obstructive pulmonary disease-patient will remain on his present medications #7 coronary artery disease-stable at this time #8 hyperlipidemia-patient is on a statin #9 chronic depression-patient is on Zoloft Charges/Coding Visit Charges Inpatient E&M: 07645 Init Hosp L3
--- NOTE | 2022-02-02 17:36 | PCM.CONS.GEN ---
Assessment & Plan Assessment/Plan (1) Symptomatic anemia: PLAN: I suspect that he has a recurrent upper GI bleed secondary to anticoagulation and possible redevelopment of angiodysplastic lesions. He will undergo an upper endoscopy to evaluate his upper GI tract and if it is negative he will need a colonoscopy. He was explained alternatives, risk, benefits including outstanding bleeding, infection, sepsis, perforation, need for emergent . He will have an ASA of 3. HPI Consult Data Date of Consult: 02/02/22 HPI Narrative Reason for Consultation: GI bleed HPI Narrative: ANGIE SINGH, is a 76 M who presenting with fatigue, shortness of breath, generalized weakness.? He states he is having mild over the last couple few days.? Patient states he was at dialysis today which she does on Monday, Monday, Monday for end-stage renal disease.? Patient states he was told his hemoglobin was low at 6.9.? Patient states he has a history of anemia and needing blood transfusion.? He was previously diagnosed with anemia chronic disease and he had a history of an upper GI bleed that was discovered on his last admission to the hospital for melanotic stools. He was discovered to have multiple gastric AVMs that were treated endoscopically. He was placed back on anticoagulation because of history of paroxysmal atrial fibrillation. All 60 review of systems are negative except as per positive mentioned HPI [facility] Medical History Abnormal chest CT Anemia Anxiety Arthritis Back pain BPH (benign prostatic hyperplasia) Congestive heart failure (CHF) COPD (chronic obstructive pulmonary disease) COPD (chronic obstructive pulmonary disease) Coronary artery disease involving coronary bypass graft CPAP (continuous positive airway pressure) dependence Depression Emphysema, unspecified Erectile dysfunction ESRD (end stage renal disease) Former smoker GERD (gastroesophageal reflux disease) Gout High cholesterol History of atrial fibrillation History of edema History of heart attack HLD (hyperlipidemia) Hypertension Lumbar disc disease with radiculopathy Obesity On home oxygen therapy MARCELO (obstructive sleep apnea) Psychosexual dysfunction with inhibited sexual excitement Sleep apnea Home Medications allopurinol 100 mg tablet 100 mg PO DAILY GOUT 05/03/18 [History Last Taken 12/13/21] nitroglycerin 0.4 mg sublingual tablet 0.4 mg sublingual Q5-15M PRN chest pain 05/03/18 [History Last Taken Unknown] ferrous sulfate 325 mg (65 mg iron) tablet (iron) 325 mg PO BID supplement 11/09/20 [History Last Taken 12/13/21] sertraline 50 mg tablet 50 mg PO DAILY mood 11/09/20 [History Last Taken 12/13/21] amiodarone 200 mg tablet 100 mg PO DAILY heart 11/19/20 [History Last Taken 12/13/21] apixaban 5 mg tablet 5 mg PO BID blood thinner 11/19/20 [History Last Taken 12/13/21] rosuvastatin 10 mg tablet (Crestor) 10 mg PO QHS cholesterol 11/19/20 [History Last Taken 12/12/21] albuterol sulfate 2.5 mg/3 mL (0.083 %) solution for nebulization 2.5 mg inhalation PRN PRN COPD 11/23/20 [History Last Taken 12/13/21] ascorbic acid (vitamin C) 500 mg capsule,extended release (Vitamin C) 500 mg PO DAILY supplement 11/23/20 [History Last Taken 12/13/21] fluticasone propionate 50 mcg/actuation nasal spray,suspension 2 spray intranasal DAILY ALLERGIES #16 grams 04/06/21 [Rx Last Taken 12/13/21] glycopyrrolate 9 mcg-formoterol 4.8 mcg HFA aerosol inhaler (Bevespi Aerosphere) 2 puff inhalation BID PRN SOB #3 ea 07/12/21 [Rx Last Taken 12/12/21] carvedilol 6.25 mg tablet (Coreg) 6.25 mg PO DAILY heart 11/04/21 [History Last Taken 12/13/21] gabapentin 100 mg capsule 200 mg PO QHS restless leg 11/04/21 [History Last Taken 12/12/21] midodrine 10 mg tablet 10 mg PO MOWEFR bp 11/04/21 [History Last Taken 12/13/21] vericiguat 2.5 mg tablet (Verquvo) 5 mg PO DAILY heart 11/04/21 [History Last Taken 12/13/21] guaifenesin 600 mg tablet, extended release 12 hr (Mucinex) 1,200 mg PO BID congestion 12/13/21 [History Last Taken 12/13/21] levothyroxine 50 mcg tablet 50 mcg PO DAILY thyroid 12/13/21 [History Last Taken 12/13/21] montelukast 10 mg tablet 10 mg PO DAILY congestion 12/13/21 [History Last Taken 12/13/21] vitamin B complex-vitamin C-folic acid 0.8 mg tablet (Tawanna-Laura) 1 tab PO DAILY supplement 12/13/21 [History Last Taken 12/12/21] pantoprazole 40 mg tablet,delayed release 40 mg PO BID #60 tabs 12/17/21 [Rx Last Taken Unknown] sucralfate 1 gram tablet 1 g PO TIDAC #90 tabs 12/17/21 [Rx Last Taken Unknown] aspirin 81 mg capsule 81 mg PO DAILY heart 02/02/22 [History Last Taken Unknown] Allergy/AdvReac Type Severity Reaction Status Date / Time Penicillins Allergy Severe Rash, 105 Verified 02/02/22 13:30 temp amlodipine Allergy itching Verified 02/02/22 13:30 and rash prednisone Allergy Other Verified 02/02/22 13:30 aspirin AdvReac Mild rash Verified 02/02/22 13:30 Family History Mother , 84 y.o. Hypertension CVA (cerebral vascular accident) Father , 70 y.o. Heart disease Hodgkin disease Sister , 72 y.o. Heart disease Surgical History H/O left cataract extraction History of cardiac catheterization History of colonoscopy History of coronary artery stent placement History of heart artery stent History of heart surgery History of knee replacement procedure of left knee History of open heart surgery (~08/2020) History of total right knee replacement S/P arteriovenous (AV) fistula repair (~12/2020) Social History household members: spouse housing: house pets and animals: No Smoking Status: Former smoker second hand exposure: No alcohol intake: current alcohol intake frequency: holidays/special occasions only ROS Constitutional Constitutional: Denies anorexia, change in weight, chills, fatigue, fever(s), malaise, night sweats or weakness Eyes Eyes: Denies blurry vision, change in vision, discharge from eye(s) or eye pain Cardiovascular Cardiovascular: Denies chest pain, claudication, dyspnea on exertion, edema, lightheadedness or palpitations Respiratory/Chest Respiratory/Chest: Denies cough, excessive phlegm production, hemoptysis, productive cough, shortness of breath at rest or shortness of breath with exertion Gastrointestinal Gastrointestinal: Reports other Details: Patient states his stools have been dark but not black, he does take iron ; Denies abdominal pain, coffee ground emesis, constipation, diarrhea, hematemesis, hematochezia, nausea or vomiting Genitourinary Genitourinary: Denies dysuria, hematuria, urinary frequency, urinary hesitancy, urinary incontinence or urinary urgency Musculoskeletal Musculoskeletal: Denies back pain, joint pain, joint stiffness, joint swelling, myalgias or neck pain Neurologic Neurologic: Denies abnormal gait, abnormal speech, confusion, disequilibrium, dizziness, focal weakness, headache(s), loss of vision, numbness, other visual disturbances, paresthesias, syncope or tingling Psychiatric Psychiatric: Denies anxiety, cognitive impairment, depression, irritability, mood swings or suicidal ideation Endocrine Endocrinology: Denies change in body appearance, cold intolerance, excessive sweating, heat intolerance, polydipsia or polyuria Hematologic/Lymphatic Hematologic/Lymphatic: Denies none, anemia, easy bleeding, easy bruising or lymphadenopathy Allergic/Immunologic Allergic/Immunologic: Denies rhinitis, urticaria, eczemia or asthma Physical Exam Const alert, oriented x3 and no apparent distress Constitutional Narrative: Patient appears his stated age General Appearance: cooperative, well kempt and well developed Orientation / Consciousness: awake, oriented to person, oriented to place and oriented to time HEENT normocephalic, head/scalp atraumatic, hearing grossly normal bilaterally and moist oral mucous membranes Eyes PERRL, EOMs intact bilaterally and conjunctivae normal Neck supple, no JVD, thyroid normal and no carotid bruits General: trachea midline Resp normal respiratory effort, no retractions, no use of accessory muscles and clear to auscultation bilaterally Auscultation: Negative for rales, rhonchi or wheezes Cardio regular rate, regular rhythm, S1 normal heart sound, S2 normal heart sound, no murmurs, no rub and no gallops GI normal to inspection, nondistended, normoactive bowel sounds, soft to palpation, non-tender and non-distended Extremity no clubbing, cyanosis or edema Skin no rashes or lesions noted General Skin Exam: no breakdown Neuro oriented x3, CN's II-XII intact bilaterally, moves all extremities, no focal motor deficits and no sensory deficits noted Sensorium / Orientation: awake and alert Speech: speech normal Psych affect normal Lab / Micro Data Result Diagrams: 02/02/22 15:25 02/02/22 15:25 Labs: Laboratory Results - last 24 hr 02/02/22 15:25: WBC 6.9, RBC 2.21 L, Hgb 6.9 L, Hct 22.2 L, MCV 100.5 H, MCH 31.2, MCHC 31.1 L, RDW Std Deviation 71.3 H, RDW Coeff of Nick 19.4 H, Plt Count 206, MPV 8.5, Differential Comment SCANNED 02/02/22 15:25: Sodium 139, Potassium 3.2 L, Chloride 98, Carbon Dioxide 38.0 H, Anion Gap 3 L, BUN 17, Creatinine 2.05 H, Estim Creat Clear Calc 29.11, Est GFR (MDRD) Af Amer 41 L, Est GFR (MDRD) Non-Af 34 L, BUN/Creatinine Ratio 8.3 L, Glucose 102, Calcium 8.4 L 02/02/22 15:25: Lactic Acid 0.7 02/02/22 15:25: Blood Type AB POSITIVE, Antibody Screen NEGATIVE, Crossmatch See Detail Micro: Microbiology 02/02/22 15:14 Stool Stool Occult Blood (ANALIA) - Final Occult Blood Positive Charges/Coding Visit Charges Inpatient E&M: 57865 Init Hosp L2
--- NOTE | 2022-02-02 18:23 | OP.EGD_ITS ---
Patient Name: Minh Gonzalez Procedure Date: 02/02/2022 5:40 PM Date of : 1945 Age: 76 Procedure: Upper GI endoscopy Indications: Melena Providers: Khari Mohr DO Medicines: Monitored Anesthesia Care Patient Profile: This is a 76 year old male. Refer to note in patient chart for documentation of history and physical. Patient has symptoms of acute epigastric abdominal pain and acute nausea. Complications: No immediate complications. Procedure: Pre-Anesthesia Assessment: - Prior to the procedure, a History and Physical was performed, and patient medications and allergies were reviewed. The patient is competent. The risks and benefits of the procedure and the sedation options and risks were discussed with the patient. All questions were answered and informed consent was obtained. Patient identification and proposed procedure were verified by the physician in the pre-procedure area. Mental Status Examination: alert and oriented. Airway Examination: normal oropharyngeal airway and neck mobility. Respiratory Examination: clear to auscultation. CV Examination: normal. Prophylactic Antibiotics: The patient does not require prophylactic antibiotics. Prior Anticoagulants: The patient has taken no previous anticoagulant or antiplatelet agents. ASA Grade Assessment: II - A patient with mild systemic disease. After reviewing the risks and benefits, the patient was deemed in satisfactory condition to undergo the procedure. The anesthesia plan was to use monitored anesthesia care (MAC). Immediately prior to administration of medications, the patient was re-assessed for adequacy to receive sedatives. The heart rate, respiratory rate, oxygen saturations, blood pressure, adequacy of pulmonary ventilation, and response to care were monitored throughout the procedure. The physical status of the patient was re-assessed after the procedure. After obtaining informed consent, the endoscope was passed under direct vision. Throughout the procedure, the patient's blood pressure, pulse, and oxygen saturations were monitored continuously. The Endoscope was introduced through the mouth, and advanced to the second part of duodenum. The upper GI endoscopy was accomplished without difficulty. The patient tolerated the procedure well. Scope In: 5:48:20 PM Scope Out: 6:12:39 PM Total Procedure Duration Time 0 hours 24 minutes 19 seconds Findings: The examined esophagus was normal. One oozing cratered gastric ulcer with a visible vessel was found on the lesser curvature of the stomach. The lesion was 5 mm in largest dimension. Area was successfully injected with 5 mL of a 1:10,000 solution of epinephrine for hemostasis. Coagulation for hemostasis using heater probe was successful. Estimated blood loss was minimal. Two 5 mm bleeding angiodysplastic lesions were found in the gastric body. Coagulation for hemostasis using heater probe was successful. Estimated blood loss was minimal. The second portion of the duodenum was normal. Impression: - Normal esophagus. - Oozing gastric ulcer with a visible vessel. Injected. Treated with a heater probe. - Two bleeding angiodysplastic lesions in the stomach. Treated with a heater probe. - Normal second portion of the duodenum. - No specimens collected. Recommendation: - Return patient to [facility] for [facility] care. - NPO today. - Use Protonix (pantoprazole) 40 mg IV BID. - Use sucralfate suspension 1 gram PO TID. - Use metoclopramide 5 mg PO QID; 30 min AC and HS today. - Administer an IV bolus of 50 micrograms of octreotide followed by an infusion of 12 micrograms per hour today. - The patient has taken no previous anticoagulant or antiplatelet agents. - No aspirin, ibuprofen, naproxen, or other non-steroidal anti-inflammatory drugs for 8 weeks. Procedure Code(s): --- Professional --- 32480, Esophagogastroduodenoscopy, flexible, transoral; with control of bleeding, any method CPT copyright 2017 [employer]. All rights reserved. The codes documented in this report are preliminary and upon remote medical coder review may be revised to meet current compliance requirements. Khari Mohr DO 02/02/2022 6:22:30 PM This report has been signed electronically. Number of Addenda: 0 Note Initiated On: 02/02/2022 5:40 PM
--- NOTE | 2022-02-02 18:23 | OP.CCLET_ITS ---
02/02/2022 Zack Stacy Re : Upper GI endoscopy procedure for Minh Stacy This procedure was performed on Wednesday, February 02, 2022. My impressions and recommendations are as follows: Impressions : - Normal esophagus. - Oozing gastric ulcer with a visible vessel. Injected. Treated with a heater probe. - Two bleeding angiodysplastic lesions in the stomach. Treated with a heater probe. - Normal second portion of the duodenum. - No specimens collected. Recommendations : - Return patient to [facility] for ongoing care. - NPO today. - Use Protonix (pantoprazole) 40 mg IV BID. - Use sucralfate suspension 1 gram PO TID. - Use metoclopramide 5 mg PO QID; 30 min AC and HS today. - Administer an IV bolus of 50 micrograms of octreotide followed by an infusion of 12 micrograms per hour today. - The patient has taken no previous anticoagulant or antiplatelet agents. - No aspirin, ibuprofen, naproxen, or other non-steroidal anti-inflammatory drugs for 8 weeks. My findings are described in the full procedure note, which is enclosed. If I can be of further assistance, please feel free to contact me at . Sincerely, Khari Mohr, 02/02/2022 6:22:30 PM This report has been signed electronically.
[2022-02-02] MEDS: Ipratropium/Albuterol Sulfate 3 ML AMPUL.NEB INHALATION (18:30)
[2022-02-02 20:21] LABS: Hematocrit 23.7 % (40-54); Hemoglobin 7.2 g/dL (13.0-16.5)
[2022-02-02] MEDS: 0.9% Saline Lock 10 ML Syringe IV (20:34)
[2022-02-02] MEDS: Potassium Chloride 10mEq/100mL 10 MEQ/100 ML IV.SOLN. 100 MEQ IV BOLUS ×2 (21:46→23:54)
[2022-02-02] MEDS: guaiFENesin 1,200 MG Tablet 1200 MG PO (22:25)
[2022-02-02] MEDS: Gabapentin 100 MG Capsule 200 MG PO (22:25)
[2022-02-02] MEDS: Atorvastatin Calcium 20 MG Tablet PO (22:25)
[2022-02-02] MEDS: Sucralfate 1 GM Tablet PO (22:25)
[2022-02-03] VITALS (7 sets, daily range): BP systolic 93–109; BP diastolic 36–61; PULSE 70–80; RESP 16–20; TEMP 36.7–37.4; O2SAT 94–100
[2022-02-03] MEDS: Levothyroxine 50 MCG Tablet PO (05:36)
[2022-02-03] MEDS: Sucralfate 1 GM Tablet PO ×3 (05:36→15:40)
[2022-02-03 07:35] LABS: Anion Gap 5 (5-15); BUN 24 mg/dL (7-18); BUN/Creat Ratio 7.7 RATIO (10-20); Calcium,Total 8.9 mg/dL (8.5-10.1); Chloride 97 mmol/L (98-107); Creatinine, Serum 3.11 mg/dL (0.70-1.30); EST Glomerular Filtration Rate 21 mL/min (>60); Est Glom Filt Rate - Afr Amer 25 mL/min (>60); Estimated Creatinine Clearance 19.19 ml/min; Glucose 118 mg/dL (74-106); Potassium 4.1 mmol/L (3.5-5.1); Sodium Level 137 mmol/L (136-145)
[2022-02-03] MEDS: Ferrous Sulfate 325 MG Tablet PO ×2 (09:07→17:04)
[2022-02-03] MEDS: Menthol/Lanolin/Calamine/Znox 113 GM Tube 1 APPLIC TOPICAL ×2 (09:07→21:25)
[2022-02-03] MEDS: Allopurinol 100 MG Tablet PO (09:08)
[2022-02-03] MEDS: guaiFENesin 1,200 MG Tablet 1200 MG PO ×2 (09:08→21:25)
[2022-02-03] MEDS: Amiodarone 200 MG Tablet 100 MG PO (09:08)
[2022-02-03] MEDS: Sertraline 50 MG Tablet PO (09:09)
[2022-02-03] MEDS: Folic Acid/Vitamin B Comp W-C 1 Capsule 1 CAP PO (09:09)
[2022-02-03] MEDS: Montelukast 10 MG Tablet PO (09:09)
[2022-02-03] MEDS: 0.9% Normal Saline 1,000 ML 100 ML IV ×2 (09:11→19:34)
--- NOTE | 2022-02-03 13:00 | PN.HOSP_ITS ---
Subjective Subjective Patient seen and examined. He has no active complaints and had an uneventful night. He had EGD yesterday which showed oozing gastric ulcer with visble vessel which was injected and treated with heater probe, as well as 2 bleeding angiodysplastic lesions in the stomach which was treated with a heater probe. He is on PPI and octreotide drip. His Hb today is 7.6 Objective Data Objective Data Vital Signs: Vital Signs Temp Pulse Resp BP Pulse Ox O2 Del Method O2 Flow Rate 98.7 F 80 16 101/53 L 94 Nasal Cannula 3.5 02/03/22 10:25 02/03/22 10:25 02/03/22 10:25 02/03/22 10:25 02/03/22 10:25 02/03/22 10:25 02/03/22 10:25 Oxygen Flow Rate (L/min) 3.5 Oxygen Delivery Method Nasal Cannula Weight: 188 lb 7.924 oz Body Mass Index (BMI) 29.5 Intake & Output: Intake and Output for Last 24 Hours 02/01/22 02/02/22 02/03/22 23:59 23:59 23:59 Intake Total 610 / 610 1387.75 / 1387.75 Output Total 0 / 0 Balance 610 / 610 1387.75 / 1387.75 Lab / Micro Data Result Diagrams: 02/02/22 20:00 02/03/22 06:20 Labs: Laboratory Results - last 24 hr 02/02/22 15:25: WBC 6.9, RBC 2.21 L, Hgb 6.9 L, Hct 22.2 L, MCV 100.5 H, MCH 31.2, MCHC 31.1 L, RDW Std Deviation 71.3 H, RDW Coeff of Nick 19.4 H, Plt Count 206, MPV 8.5, Differential Comment SCANNED 02/02/22 15:25: Sodium 139, Potassium 3.2 L, Chloride 98, Carbon Dioxide 38.0 H, Anion Gap 3 L, BUN 17, Creatinine 2.05 H, Estim Creat Clear Calc 29.11, Est GFR (MDRD) Af Amer 41 L, Est GFR (MDRD) Non-Af 34 L, BUN/Creatinine Ratio 8.3 L, Glucose 102, Calcium 8.4 L 02/02/22 15:25: Lactic Acid 0.7 02/02/22 15:25: Blood Type AB POSITIVE, Antibody Screen NEGATIVE, Crossmatch See Detail 02/02/22 20:00: Hgb 7.2 L, Hct 23.7 L 02/03/22 06:20: Sodium 137, Potassium 4.1, Chloride 97 L, Carbon Dioxide 35.0 H, Anion Gap 5, BUN 24 H, Creatinine 3.11 H, Estim Creat Clear Calc 19.19, Est GFR (MDRD) Af Amer 25 L, Est GFR (MDRD) Non-Af 21 L, BUN/Creatinine Ratio 7.7 L, Glucose 118 H, Calcium 8.9 Micro: Microbiology 02/02/22 15:14 Stool Stool Occult Blood (ANALIA) - Final Occult Blood Positive Physical Exam Const alert, oriented x3 and no apparent distress HEENT head/scalp atraumatic, moist oral mucous membranes and oropharynx normal Head and Scalp: normocephalic Mouth: oral and palatal mucosa normal Eyes PERRL, EOMs intact bilaterally and conjunctivae normal Neck no lymphadenopathy, supple and no JVD Resp normal respiratory effort, no retractions, no use of accessory muscles and clear to auscultation bilaterally Cardio regular rate, regular rhythm, S1 normal heart sound, S2 normal heart sound and no murmurs GI normal to inspection, nondistended, normoactive bowel sounds, soft to palpation, non-tender and non-distended Extremity normal to inspection, full ROM and no clubbing, cyanosis or edema Neuro oriented x3, CN's II-XII intact bilaterally and moves all extremities Sensorium / Orientation: awake Motor Exam: strength 5/5 throughout Psych affect normal Assessment & Plan Assessment/Plan (1) Upper GI bleed: (2) Acute GI bleeding: (3) Symptomatic anemia: PLAN: Plan #Acute upper GI bleed * due to bleeding peptic ulcer and bleeding angiodysplastic lesions * transfused with one unit of PRBCs * had EGD which showed oozing gastric ulcer with visible vessel which was treated with heater probe and injected; also had 2 bleeding angiodysplastic lesions in the stomach which were treated with a heater probe. * on IV PPI and octreotide drip * no aspirin, ibuprofen, naproxen or other NSAIDs for 8 weeks. * on sulcralfate * #Acute on chronic anemia: * due to GI bleed. s/p transfusion of one unit of PRBC. * Hb today is 7.2 today. * #ESRD * on HD MWF. * consult nephrology for dialysis tomorrow * #Paroxysmal afib: deann dc'd o/a of GI bleed. ON carvedilol and amiodarone #COPD: not in exacerbation. On breathing treatment with bronchodilators #CAD: stable. aspirin held. On statin and carvedilol #Depression; on zoloft. #HYperlipidemia: on statin DVT prophylaxis: SCDs. No anticoagulation due to GI bleed Charges/Coding Visit Charges Inpatient E&M: 24149 Subs Hosp L2
[2022-02-03] MEDS: Ipratropium/Albuterol Sulfate 3 ML AMPUL.NEB INHALATION (17:37)
--- NOTE | 2022-02-03 19:34 | CON.PCM.RE_ITS ---
Assessment & Plan Assessment/Plan (1) End-stage renal disease on hemodialysis: PLAN: The patient normally dialyzes on MWF schedule at [facility]. No need for dialysis today. Will arrange for dialysis tomorrow if he is not discharged. (2) Hypertension: PLAN: BP is acceptable. The patient is on carvedilol as well as midodrine. (3) Upper GI bleed: PLAN: The patient has angiodysplastic gastric lesion along with gastric ulcers. Lesions were treated with heater probe by GI. Continue to monitor hemoglobin and continue FERMIN with dialysis as outpatient. (4) Pleural effusion: PLAN: The patient had Pleurx catheter which was draining his pleural effusion in the past. Catheters have been removed since his last admission. He is on nasal cannula oxygen. Ultrafiltration with dialysis tomorrow. HPI Consult Data Date of Consult: 02/03/22 HPI Narrative Reason for Consultation: ESRD need for dialysis HPI Narrative: ANGIE SINGH, is a 76-year-old man with past history of CAD, heart failure with reduced ejection fraction, hypertension, atrial fibrillation, obstructive sleep apnea, gout, and hyperlipidemia.? The patient also has a history of ESRD and receives dialysis at [facility] dialysis unit on a MWF schedule.? The patient is followed in the dialysis unit by Dr. Raymond and Dr. Fam. The patient was sent to the hospital from dialysis unit on 02/02/2022 because of acutely low hemoglobin at 6.5 g/dL. The patient was hospitalized in December 2021 with upper GI bleed and had angiodysplastic lesion in the stomach as well as gastric ulcer. The patient underwent EGD on 02/02/2022 which showed recurrence of angiodysplastic lesions and gastric ulcer which was treated with heater probe. Nephrology is consulted for dialysis management. The patient denies current chest pain, shortness of breath, nausea, or vomiting. The patient does have some lower extremity edema. [facility] Medical History (Updated 02/03/22 @ 19:[address] Elke Hewitt MD) Abnormal chest CT Anemia Anxiety Arthritis Back pain BPH (benign prostatic hyperplasia) Congestive heart failure (CHF) COPD (chronic obstructive pulmonary disease) COPD (chronic obstructive pulmonary disease) Coronary artery disease involving coronary bypass graft CPAP (continuous positive airway pressure) dependence Depression Emphysema, unspecified Erectile dysfunction ESRD (end stage renal disease) Former smoker GERD (gastroesophageal reflux disease) Gout High cholesterol History of atrial fibrillation History of edema History of heart attack HLD (hyperlipidemia) Hypertension Lumbar disc disease with radiculopathy Obesity On home oxygen therapy MARCELO (obstructive sleep apnea) Psychosexual dysfunction with inhibited sexual excitement Sleep apnea Home Medications allopurinol 100 mg tablet 100 mg PO DAILY GOUT 05/03/18 [History Last Taken 12/13/21] nitroglycerin 0.4 mg sublingual tablet 0.4 mg sublingual Q5-15M PRN chest pain 05/03/18 [History Last Taken Unknown] ferrous sulfate 325 mg (65 mg iron) tablet (iron) 325 mg PO BID supplement 11/09/20 [History Last Taken 12/13/21] sertraline 50 mg tablet 50 mg PO DAILY mood 11/09/20 [History Last Taken 12/13/21] amiodarone 200 mg tablet 100 mg PO DAILY heart 11/19/20 [History Last Taken 12/13/21] apixaban 5 mg tablet 5 mg PO BID blood thinner 11/19/20 [History Last Taken 12/13/21] rosuvastatin 10 mg tablet (Crestor) 10 mg PO QHS cholesterol 11/19/20 [History Last Taken 12/12/21] albuterol sulfate 2.5 mg/3 mL (0.083 %) solution for nebulization 2.5 mg inhalation PRN PRN COPD 11/23/20 [History Last Taken 12/13/21] ascorbic acid (vitamin C) 500 mg capsule,extended release (Vitamin C) 500 mg PO DAILY supplement 11/23/20 [History Last Taken 12/13/21] fluticasone propionate 50 mcg/actuation nasal spray,suspension 2 spray intranasal DAILY ALLERGIES #16 grams 04/06/21 [Rx Last Taken 12/13/21] glycopyrrolate 9 mcg-formoterol 4.8 mcg HFA aerosol inhaler (Bevespi Aerosphere) 2 puff inhalation BID PRN SOB #3 ea 07/12/21 [Rx Last Taken 12/12/21] carvedilol 6.25 mg tablet (Coreg) 6.25 mg PO DAILY heart 11/04/21 [History Last Taken 12/13/21] gabapentin 100 mg capsule 200 mg PO QHS restless leg 11/04/21 [History Last Taken 12/12/21] midodrine 10 mg tablet 10 mg PO MOWEFR bp 11/04/21 [History Last Taken 12/13/21] vericiguat 2.5 mg tablet (Verquvo) 5 mg PO DAILY heart 11/04/21 [History Last Taken 12/13/21] guaifenesin 600 mg tablet, extended release 12 hr (Mucinex) 1,200 mg PO BID congestion 12/13/21 [History Last Taken 12/13/21] levothyroxine 50 mcg tablet 50 mcg PO DAILY thyroid 12/13/21 [History Last Taken 12/13/21] montelukast 10 mg tablet 10 mg PO DAILY congestion 12/13/21 [History Last Taken 12/13/21] vitamin B complex-vitamin C-folic acid 0.8 mg tablet (Tawanna-Laura) 1 tab PO DAILY supplement 12/13/21 [History Last Taken 12/12/21] pantoprazole 40 mg tablet,delayed release 40 mg PO BID #60 tabs 12/17/21 [Rx Last Taken Unknown] sucralfate 1 gram tablet 1 g PO TIDAC #90 tabs 12/17/21 [Rx Last Taken Unknown] aspirin 81 mg capsule 81 mg PO DAILY heart 02/02/22 [History Last Taken Unknown] Allergy/AdvReac Type Severity Reaction Status Date / Time Penicillins Allergy Severe Rash, 105 Verified 02/02/22 13:30 temp amlodipine Allergy itching Verified 02/02/22 13:30 and rash prednisone Allergy Other Verified 02/02/22 13:30 aspirin AdvReac Mild rash Verified 02/02/22 13:30 Family History Mother , 84 y.o. Hypertension CVA (cerebral vascular accident) Father , 70 y.o. Heart disease Hodgkin disease Sister , 72 y.o. Heart disease Surgical History H/O left cataract extraction History of cardiac catheterization History of colonoscopy History of coronary artery stent placement History of heart artery stent History of heart surgery History of knee replacement procedure of left knee History of open heart surgery (~08/2020) History of total right knee replacement S/P arteriovenous (AV) fistula repair (~12/2020) Social History household members: spouse housing: house pets and animals: No Smoking Status: Former smoker second hand exposure: No alcohol intake: current alcohol intake frequency: holidays/special occasions only ROS ROS Narrative 12/20 ROS was done and otherwise noncontributory aside from what is documented in HPI. Physical Exam Const Constitutional Narrative: General: NAD HEENT: Normocephalic, atraumatic.? PERRLA, EOMI.? Hearing is intact.? Mucous membranes moist without erythema. Neck: Supple, no JVD. Heart: Normal S1, S2.? No rubs, murmurs or gallops. Lungs: Decreased breath sound at bases.? No wheezing. Abdomen: Normal bowel sounds, soft, nontender, no organomegaly, no guarding or rebound. Extremity: There is 2+ lower extremity edema.? There is a left lower arm AV graft which has good thrill and bruit. Musculoskeletal: Full passive range of motion.? There is no joint swelling. Neurological: No focal neurologic deficit. Psychiatric: Normal mood and affect. Skin: No rash, skin is warm and dry. Lab / Micro Data Result Diagrams: 02/02/22 20:00 02/03/22 06:20 Labs: Laboratory Results - last 24 hr 02/02/22 20:00: Hgb 7.2 L, Hct 23.7 L 02/03/22 06:20: Sodium 137, Potassium 4.1, Chloride 97 L, Carbon Dioxide 35.0 H, Anion Gap 5, BUN 24 H, Creatinine 3.11 H, Estim Creat Clear Calc 19.19, Est GFR (MDRD) Af Amer 25 L, Est GFR (MDRD) Non-Af 21 L, BUN/Creatinine Ratio 7.7 L, Glucose 118 H, Calcium 8.9 Micro: Microbiology 02/02/22 15:14 Stool Stool Occult Blood (ANALIA) - Final Occult Blood Positive
[2022-02-03] MEDS: Atorvastatin Calcium 20 MG Tablet PO (21:25)
[2022-02-03] MEDS: Gabapentin 100 MG Capsule 200 MG PO (21:28)
[2022-02-04] VITALS (20 sets, daily range): BP systolic 103–132; BP diastolic 40–94; PULSE 69–104; RESP 16–20; TEMP 35.7–37.5; O2SAT 93–100
[2022-02-04] MEDS: Sucralfate 1 GM Tablet PO (05:02)
[2022-02-04] MEDS: Levothyroxine 50 MCG Tablet PO (05:02)
[2022-02-04 06:47] LABS: Absolute Lymphocyte Count 0.68 X10^3/uL (0.83-4.51); Absolute Neutrophil Count 4.5 X10^3/uL (2.0-7.7); Basophil# 0.09 X10^3/uL; Basophil% 1.3 % (0-1); Eosinophil# 0.81 X10^3/uL; Eosinophils% 11.6 % (0-5); Hematocrit 21.9 % (40-54); Hemoglobin 6.7 g/dL (13.0-16.5); Lymphocyte # 0.68 X10^3/ul (0.83-4.51); Lymphocyte % 9.8 % (19-41); Mean Corp Hgb Conc 30.6 g/dL (32-36); Mean Corpuscular Hgb 30.3 pg (27.0-32.0); Mean Corpuscular Volume 99.1 fL (80-94); Mean Platelet Vol. 8.3 fl (6.2-12.0); Monocyte# 0.82 X10^3/uL; Monocyte% 11.8 % (0-10); NRBC Flagged by Analyzer 0 % (0-5); Neutrophil # 4.54 X10^3/uL (2.7-7.7); Neutrophil % 65.2 % (47-70); POSITIVE MORPHOLOGY YES; Platelet Count 176 K/mm3 (150-450); RBC Distribution Width CV 19.5 % (11.6-14.6); RBC Distribution Width SD 68.6 fl (35.1-43.9); Red Blood Count 2.21 M/mm3 (4.6-6.2)
[2022-02-04 07:10] LABS: Differential Indicated SCAN CRITERIA MET
[2022-02-04 07:13] LABS: Anisocytosis 2+; Differential Comment SCANNED; Macrocytosis 1+; Microcytosis 1+; Polychromasia 1+
[2022-02-04 07:19] LABS: Anion Gap 6 (5-15); BUN 34 mg/dL (7-18); Calcium,Total 8.2 mg/dL (8.5-10.1); Chloride 98 mmol/L (98-107); Creatinine, Serum 4.83 mg/dL (0.70-1.30); EST Glomerular Filtration Rate 13 mL/min (>60); Est Glom Filt Rate - Afr Amer 15 mL/min (>60); Estimated Creatinine Clearance 12.35 ml/min; Glucose 118 mg/dL (74-106); Potassium 4.2 mmol/L (3.5-5.1); Sodium Level 134 mmol/L (136-145)
[2022-02-04] MEDS: Ferrous Sulfate 325 MG Tablet PO (08:31)
[2022-02-04] MEDS: Carvedilol 6.25 MG Tablet PO (08:31)
[2022-02-04] MEDS: Amiodarone 200 MG Tablet 100 MG PO (08:31)
[2022-02-04] MEDS: Menthol/Lanolin/Calamine/Znox 113 GM Tube 1 APPLIC TOPICAL ×2 (08:32→22:45)
[2022-02-04] MEDS: guaiFENesin 1,200 MG Tablet 1200 MG PO (08:32)
[2022-02-04] MEDS: Allopurinol 100 MG Tablet PO (08:33)
[2022-02-04] MEDS: Sertraline 50 MG Tablet PO (08:33)
[2022-02-04] MEDS: Midodrine HCl 5 MG Tablet 10 MG PO (08:33)
[2022-02-04] MEDS: Montelukast 10 MG Tablet PO (08:34)
--- NOTE | 2022-02-04 11:00 | CASEMGMT ---
RN ROSAMARIA Face to Face with patient for initial transition planning/care coordination assessment. RN CM introduced self and role at [facility]. Patient lying in bed, alert and oriented, at bedside. Patient willing to participate in assessment and is able to answer all questions appropriately. Care providers, pharmacy, and demographics verified. Patient wishes to discharge home with resumption of HHC with [facility]. Patient declined list of HHC agencies. Patient states he has no further needs or concerns at this time. CM to follow for discharge planning needs that may arise. PCP: [facility] Specialists: Janelle, Tubing Assembler; James, cadastral surveyor; Sarwat dry can tender Preferred Pharmacy: [facility] Insurance: HDF, [employer] Prescription Benefit: yes Living Will/HPOA: yes, Janae Gonzalez LNOK: Sofia Living Arrangements: Patient lives with in a single story home with 3 steps and grab bar to enter the home. Patient states he is independent for toileting, assists with bathing and dressing. Transportation: DME/HHC: patient has shower chair, raised toilet, cane, walker, grab bars, bipap, nebulizer, scooter, pulse ox, and home oxygen through [employer] at 3-5lpm with portability. Patient is currently active with [facility] for halfway. Disposition Plan: Patient to discharge home with resumption of HHC, family support, and follow-up plans in place. Alana WINSLOW, RN, CM
--- NOTE | 2022-02-04 11:33 | EKG12_ITS ---
Test Reason : PRE OP Blood Pressure : / mmHG Vent. Rate : 070 BPM Atrial Rate : 070 BPM P-R Int : 290 ms QRS Dur : 094 ms QT Int : 416 ms P-R-T Axes : 039 -52 062 degrees QTc Int : 449 ms Sinus rhythm with 1st degree A-V block with occasional Premature ventricular complexes Left axis deviation Low voltage QRS Abnormal ECG When compared with ECG of 02-FEB-2022 15:31, MANUAL COMPARISON REQUIRED, DATA IS UNCONFIRMED Confirmed by JAMMIE GONZALEZ, ELIGIO ([id number]), editorial assistant LEONOR WALTER ([id number]) on 02/08/2022 9:12:54 AM Referred By: KATLYN Confirmed By:ELIGIO AGUDELO MD
--- NOTE | 2022-02-04 11:44 | PN.HOSP_ITS ---
Subjective Subjective Patient seen and examined. HE had no complaints today. He denied any abdominal pain, dark stools, coffee ground emesis or any other symptoms. REview of systems is otherwise negative. Hb is down to 6.7 today. Objective Data Objective Data Vital Signs: Vital Signs Temp Pulse Resp BP Pulse Ox O2 Del Method O2 Flow Rate 98.3 F 93 18 115/63 99 Nasal Cannula 4 02/04/22 08:00 02/04/22 08:00 02/04/22 08:00 02/04/22 08:00 02/04/22 08:00 02/04/22 08:00 02/04/22 08:00 Oxygen Flow Rate (L/min) 4 Oxygen Delivery Method Nasal Cannula Weight: 188 lb 7.924 oz Body Mass Index (BMI) 29.5 Intake & Output: Intake and Output for Last 24 Hours 02/02/22 02/03/22 02/04/22 23:59 23:59 23:59 Intake Total 610 / 610 3238.75 / 3838.75 1715 / 1715 Output Total 0 / 0 Balance 610 / 610 3238.75 / 3838.75 1715 / 1715 Lab / Micro Data Result Diagrams: 02/04/22 06:41 02/04/22 06:41 Labs: Laboratory Results - last 24 hr 02/02/22 15:25: Crossmatch See Detail 02/04/22 06:41: WBC 7.0, RBC 2.21 L, Hgb 6.7 L, Hct 21.9 L, MCV 99.1 H, MCH 30.3, MCHC 30.6 L, RDW Std Deviation 68.6 H, RDW Coeff of Nick 19.5 H, Plt Count 176, MPV 8.3, Immature Gran % (Auto) 0.300, Neut % (Auto) 65.2, Lymph % (Auto) 9.8 L, [place] % (Auto) 11.8 H, Eos % (Auto) 11.6 H, Baso % (Auto) 1.3 H, Absolute Neuts (auto) 4.5, Absolute Lymphs (auto) 0.68 L, Nucleated RBC % 0, Differential Comment SCANNED, Polychromasia 1+, Anisocytosis 2+, Microcytosis 1+, Macrocytosis 1+ 02/04/22 06:41: Sodium 134 L, Potassium 4.2, Chloride 98, Carbon Dioxide 30.0, Anion Gap 6, BUN 34 H, Creatinine 4.83 H, Estim Creat Clear Calc 12.35, Est GFR (MDRD) Af Amer 15 L, Est GFR (MDRD) Non-Af 13 L, BUN/Creatinine Ratio 7.0 L, Glucose 118 H, Calcium 8.2 L Micro: Microbiology 02/02/22 15:14 Stool Stool Occult Blood (ANALIA) - Final Occult Blood Positive Physical Exam Const alert, oriented x3 and no apparent distress General Appearance: cooperative, well kempt and well developed Orientation / Consciousness: awake, oriented to person, oriented to place and oriented to time HEENT normocephalic, head/scalp atraumatic, hearing grossly normal bilaterally, moist oral mucous membranes and oropharynx normal Eyes PERRL, EOMs intact bilaterally and conjunctivae normal Neck no lymphadenopathy, supple, no JVD, thyroid normal and no carotid bruits General: trachea midline Resp normal respiratory effort, no retractions, no use of accessory muscles and clear to auscultation bilaterally Auscultation: Negative for rales, rhonchi or wheezes Cardio regular rate, regular rhythm, S1 normal heart sound, S2 normal heart sound, no murmurs, no rub and no gallops GI normal to inspection, nondistended, normoactive bowel sounds, soft to palpation, non-tender and non-distended Extremity normal to inspection, full ROM and no clubbing, cyanosis or edema Skin no rashes or lesions noted General Skin Exam: no breakdown Neuro oriented x3, CN's II-XII intact bilaterally, moves all extremities, no focal motor deficits and no sensory deficits noted Sensorium / Orientation: awake and alert Speech: speech normal Motor Exam: strength 5/5 throughout Psych affect normal Assessment & Plan Assessment/Plan (1) Upper GI bleed: (2) Acute GI bleeding: (3) Symptomatic anemia: PLAN: Plan #Acute upper GI bleed * due to bleeding peptic ulcer and bleeding angiodysplastic lesions * transfused with one unit of PRBCs * had EGD which showed oozing gastric ulcer with visible vessel which was treated with heater probe and injected; also had 2 bleeding angiodysplastic lesions in the stomach which were treated with a heater probe. * on IV PPI and octreotide drip * Hb today is down to 6.7 today. * will transfuse one unit of PRBCs today during dialysis * GI on board; to have EGD again today. * no aspirin, ibuprofen, naproxen or other NSAIDs for 8 weeks. * on sucralfate * #Acute on chronic anemia: * due to GI bleed. s/p transfusion of one unit of PRBC. * Hb today is 6.7 today. * being transfused with one unit of #ESRD * on HD MWF. * consult nephrology for dialysis tomorrow * #Paroxysmal afib: deann dc'd o/a of GI bleed. ON carvedilol and amiodarone #COPD: not in exacerbation. On breathing treatment with bronchodilators #CAD: stable. aspirin held. On statin and carvedilol #Depression; on zoloft. #HYperlipidemia: on statin DVT prophylaxis: SCDs. No anticoagulation due to GI bleed Charges/Coding Visit Charges Inpatient E&M: 74712 Subs Hosp L3
--- NOTE | 2022-02-04 11:49 | CASEMGMT ---
Updated Maxine at [facility] that pt plan is to dc home with resumption of HHC and adding PT and OT back.
[2022-02-04 12:08] LABS: Troponin-I HS 47 pg/mL (3.0-78.0)
--- NOTE | 2022-02-04 13:24 | OP.CCLET_ITS ---
02/04/2022 Zack Stacy Re : Upper GI endoscopy procedure for Minh Stacy This procedure was performed on Friday, February 04, 2022. My impressions and recommendations are as follows: Impressions : - Normal esophagus. - A large amount of a phytobezoar in the stomach. - Oozing gastric ulcer with pigmented material. Treated with a heater probe. - Normal first portion of the duodenum. - No specimens collected. Recommendations : - Return patient to [facility] for [facility] care. - NPO for 2 days. - Continue present medications. My findings are described in the full procedure note, which is enclosed. If I can be of further assistance, please feel free to contact me at . Sincerely, Khari Mohr, 02/04/2022 1:24:11 PM This report has been signed electronically.
--- NOTE | 2022-02-04 13:24 | OP.EGD_ITS ---
Patient Name: Minh Gonzalez Procedure Date: 02/04/2022 12:23 PM Date of : 1945 Age: 76 Procedure: Upper GI endoscopy Indications: Melena Providers: Khari Mohr DO Medicines: Monitored Anesthesia Care Patient Profile: This is a 76 year old male. Refer to note in patient chart for documentation of history and physical. Patient has symptoms of acute epigastric abdominal pain. Complications: No immediate complications. Procedure: Pre-Anesthesia Assessment: - Prior to the procedure, a History and Physical was performed, and patient medications and allergies were reviewed. The patient is competent. The risks and benefits of the procedure and the sedation options and risks were discussed with the patient. All questions were answered and informed consent was obtained. Patient identification and proposed procedure were verified by the physician. Mental Status Examination: normal. Airway Examination: normal oropharyngeal airway and neck mobility. Respiratory Examination: clear to auscultation. CV Examination: normal. Prophylactic Antibiotics: The patient does not require prophylactic antibiotics. Prior Anticoagulants: The patient has taken no previous anticoagulant or antiplatelet agents. After reviewing the risks and benefits, the patient was deemed in satisfactory condition to undergo the procedure. The anesthesia plan was to use monitored anesthesia care (MAC). Immediately prior to administration of medications, the patient was re-assessed for adequacy to receive sedatives. The heart rate, respiratory rate, oxygen saturations, blood pressure, adequacy of pulmonary ventilation, and response to care were monitored throughout the procedure. The physical status of the patient was re-assessed after the procedure. After obtaining informed consent, the endoscope was passed under direct vision. Throughout the procedure, the patient's blood pressure, pulse, and oxygen saturations were monitored continuously. The gastroscope was introduced through the mouth, and advanced to the second part of duodenum. The upper GI endoscopy was accomplished without difficulty. The patient tolerated the procedure well. Scope In: 12:38:18 PM Scope Out: 12:44:14 PM Total Procedure Duration Time 0 hours 5 minutes 56 seconds Findings: The examined esophagus was normal. A large amount of a phytobezoar was found in the gastric body. One oozing cratered gastric ulcer with pigmented material was found on the lesser curvature of the stomach. The lesion was 6 mm in largest dimension. Coagulation for hemostasis using heater probe was successful. Estimated blood loss was minimal. The first portion of the duodenum was normal. Impression: - Normal esophagus. - A large amount of a phytobezoar in the stomach. - Oozing gastric ulcer with pigmented material. Treated with a heater probe. - Normal first portion of the duodenum. - No specimens collected. Recommendation: - Return patient to [facility] for ongoing care. - NPO for 2 days. - Continue present medications. Procedure Code(s): --- Professional --- 40726, Esophagogastroduodenoscopy, flexible, transoral; with control of bleeding, any method CPT copyright 2017 [employer]. All rights reserved. The codes documented in this report are preliminary and upon senior project accountant review may be revised to meet current compliance requirements. Khari Mohr DO 02/04/2022 1:24:11 PM This report has been signed electronically. Number of Addenda: 0 Note Initiated On: 02/04/2022 12:23 PM
--- NOTE | 2022-02-04 14:06 | SUR.PHASEI ---
SPOKE WITH BLOOD BANK ABOUT BLOOD TRANSFUSION IN PROCESS. REMINDER WAS POPPING UP ON THE SCREEN STATING IT REACHED THE 2HOUR LIMIT. BLOOD BANK STATED IT WAS STILL ABLE TO RUN OVER 4 HOURS AND WAS UNSURE WHY IT WOULD HAVE THAT ALERT POP UP.
[2022-02-04] MEDS: Ondansetron 4 MG/2 ML Vial IV (17:33)
--- NOTE | 2022-02-04 20:18 | PN.RENAL_ITS ---
Subjective Subjective Following for ESRD. The patient seen during hemodialysis. He is status post EGD. He appears to be restless. He denies chest pain or shortness of breath. Objective Data Objective Data Vital Signs: Vital Signs Temp Pulse Resp BP Pulse Ox O2 Del Method O2 Flow Rate 98.9 F 88 18 132/69 H 96 Nasal Cannula 4 02/04/22 17:44 02/04/22 17:44 02/04/22 17:44 02/04/22 17:44 02/04/22 17:44 02/04/22 17:44 02/04/22 17:44 Oxygen Flow Rate (L/min) 4 Oxygen Delivery Method Nasal Cannula Weight: 85.5 kg Body Mass Index (BMI) 29.5 Intake & Output: Intake and Output for Last 24 Hours 02/02/22 02/03/22 02/04/22 23:59 23:59 23:59 Intake Total 610 / 610 3238.75 / 3838.75 2298 / 2298 Output Total 0 / 0 400 / 400 Balance 610 / 610 3238.75 / 3838.75 1898 / 1898 Lab / Micro Data Result Diagrams: 02/04/22 06:41 02/04/22 06:41 Labs: Laboratory Results - last 24 hr 02/02/22 15:25: Crossmatch See Detail 02/02/22 15:25: Crossmatch See Detail 02/04/22 06:41: WBC 7.0, RBC 2.21 L, Hgb 6.7 L, Hct 21.9 L, MCV 99.1 H, MCH 30.3, MCHC 30.6 L, RDW Std Deviation 68.6 H, RDW Coeff of Nick 19.5 H, Plt Count 176, MPV 8.3, Immature Gran % (Auto) 0.300, Neut % (Auto) 65.2, Lymph % (Auto) 9.8 L, [place] % (Auto) 11.8 H, Eos % (Auto) 11.6 H, Baso % (Auto) 1.3 H, Absolute Neuts (auto) 4.5, Absolute Lymphs (auto) 0.68 L, Nucleated RBC % 0, Differential Comment SCANNED, Polychromasia 1+, Anisocytosis 2+, Microcytosis 1+, Macrocytosis 1+ 02/04/22 06:41: Sodium 134 L, Potassium 4.2, Chloride 98, Carbon Dioxide 30.0, Anion Gap 6, BUN 34 H, Creatinine 4.83 H, Estim Creat Clear Calc 12.35, Est GFR (MDRD) Af Amer 15 L, Est GFR (MDRD) Non-Af 13 L, BUN/Creatinine Ratio 7.0 L, Glucose 118 H, Calcium 8.2 L 02/04/22 06:41: Troponin I High Sens 47 Micro: Microbiology 02/02/22 15:14 Stool Stool Occult Blood (ANALIA) - Final Occult Blood Positive Physical Exam Const Constitutional Narrative: General: Restless. HEENT: Normocephalic, atraumatic.? PERRLA, EOMI.? Hearing is intact.? Mucous membranes moist without erythema. Neck: Supple, no JVD. Heart: Normal S1, S2.? No rubs, murmurs or gallops. Lungs: Decreased breath sound at bases.? No wheezing. Abdomen: Normal bowel sounds, soft, nontender, no organomegaly, no guarding or rebound. Extremity: There is 2+ lower extremity edema.? There is a left lower arm AV graft which has good thrill and bruit. Assessment & Plan Assessment/Plan (1) End-stage renal disease on hemodialysis: PLAN: The patient normally dialyzes on MWF schedule at [facility]. Arrange for and saw the patient during dialysis today. We are using F1 80 dialyzer. We will use 3K dialysate. We will try for 1 to 2 L UF. However, ultrafiltration may be limited because of low BP tonight. Recheck labs tomorrow. (2) Hypertension: PLAN: BP is on the low side. The patient is on both carvedilol as well as midodrine. (3) Upper GI bleed: PLAN: The patient has angiodysplastic gastric lesion along with gastric ulcers. Lesions were treated with heater probe by GI on 02/03/2022. Further drop in hemoglobin today. The patient required another EGD today with further treatment of gastric ulcer with heater probe as per GI. (4) Pleural effusion: PLAN: The patient had Pleurx catheter which was draining his pleural effusion in the past. Catheters have been removed since his last admission. He is on nasal cannula oxygen. Ultrafiltration with dialysis today.
[2022-02-04] MEDS: Ipratropium/Albuterol Sulfate 3 ML AMPUL.NEB INHALATION (22:00)
--- NOTE | 2022-02-04 22:20 | RAD_ITS ---
EXAM: XR CHEST, 1 VIEW CLINICAL INDICATION: shortness of breath TECHNIQUE: Frontal view of the chest. This report was created using [employer] report generation technology. COMPARISON: Previous chest radiographs of 12/13/2021 and 07/02/2021. FINDINGS: LUNGS AND PLEURAL SPACES: Limited degree of inspiration. Patchy air space disease previously seen within the retrocardiac region of the left lower lobe has resolved. However, there is increasing moderate airspace disease in the left midlung, as well as within the right mid to lower lung laterally, and patchy airspace disease has developed in the left upper lobe. There is less blunting of the costophrenic angles consistent with diminishing pleural effusions. HEART: Heart size remains moderately enlarged, with increasing cephalization of pulmonary blood flow. MEDIASTINUM: Previous sternotomy. Thoracic aorta remains mildly elongated and calcified. Interval development of mild soft tissue fullness/bulging within the AP window region, suggesting adenopathy. BONES/JOINTS: No acute osseous abnormality. SOFT TISSUES: Surgical clips are noted within the left upper abdominal quadrant. RAD/Chest 1 View (Portable) IMPRESSION: 1. Resolution of retrocardiac airspace disease and with decreasing small pleural effusions. 2. Increasing airspace disease within the left midlung and right mid to lower lung laterally, with additional development of asymmetric airspace disease in the left upper lobe; these worsening alveolar infiltrates could be due to worsening pulmonary edema, or possibly multifocal pneumonia, depending upon clinical history. Electronically Signed: Oracio Jefferson MD at 22:39 EST ,
--- NOTE | 2022-02-04 22:35 | DIALYSIS ---
Hemodialysis x3 hours completed at 2135 on a 3K bath, tolerated fair, UF 2300mL, CritLine maintained profile A/B, restless prior to and throughout tx, vomited pre-dialysis, accessed via LFA AVG using 15G needles, worked well, needles pulled post tx and stasis achieved without issue, pulse ox reading 70s-80s toward end of tx, staff at bedside, blood returned 10 mins early
[2022-02-04 22:38] LABS: Absolute Lymphocyte Count 0.45 X10^3/uL (0.83-4.51); Absolute Neutrophil Count 11.1 X10^3/uL (2.0-7.7); Basophil% 0.8 % (0-1); Eosinophils% 2.3 % (0-5); Hemoglobin 8.7 g/dL (13.0-16.5); Lymphocyte # 0.45 X10^3/ul (0.83-4.51); Lymphocyte % 3.4 % (19-41); Mean Corpuscular Hgb 30.7 pg (27.0-32.0); Mean Corpuscular Volume 102.5 fL (80-94); Mean Platelet Vol. 8.4 fl (6.2-12.0); Monocyte# 1.17 X10^3/uL; Monocyte% 8.9 % (0-10); NRBC Flagged by Analyzer 0 % (0-5); Neutrophil # 11.05 X10^3/uL (2.7-7.7); Neutrophil % 84.3 % (47-70); POSITIVE DIFFERENTIAL YES; POSITIVE MORPHOLOGY YES; Platelet Count 156 K/mm3 (150-450); RBC Distribution Width CV 19.1 % (11.6-14.6); RBC Distribution Width SD 69.9 fl (35.1-43.9); Red Blood Count 2.83 M/mm3 (4.6-6.2); White Blood Count 13.1 K/mm3 (4.4-11.0)
[2022-02-04 22:40] LABS: Differential Indicated SCAN CRITERIA MET
[2022-02-04 22:53] LABS: Anion Gap 8 (5-15); BUN 21 mg/dL (7-18); BUN/Creat Ratio 6.2 RATIO (10-20); Calcium,Total 8.6 mg/dL (8.5-10.1); Chloride 101 mmol/L (98-107); Creatinine, Serum 3.36 mg/dL (0.70-1.30); EST Glomerular Filtration Rate 19 mL/min (>60); Est Glom Filt Rate - Afr Amer 23 mL/min (>60); Estimated Creatinine Clearance 17.76 ml/min; Glucose 54 mg/dL (74-106); Potassium 3.6 mmol/L (3.5-5.1); Sodium Level 138 mmol/L (136-145)
[2022-02-04 22:57] LABS: Anisocytosis 2+; Hypochromasia RARE; Macrocytosis 2+; Ovalocyte RARE; Platelet Estimate ADEQUATE (ADEQ); Red Cell Morphology N CHROM NORMAL (NORM C&C)
[2022-02-04] MEDS: Dextrose 50%-Water 25 GM/50 ML DISP.SYRIN IV ×2 (23:24→23:55)
[2022-02-05] VITALS (12 sets, daily range): BP systolic 82–103; BP diastolic 33–74; PULSE 77–98; RESP 16–24; TEMP 36.7–37.7; O2SAT 90–99
[2022-02-05 01:10] LABS: Bedside Glucose 94 mg/dL (74-106)
[2022-02-05] MEDS: 0.9% Saline Lock 10 ML Syringe IV (03:58)
[2022-02-05 04:21] LABS: Bedside Glucose 130 mg/dL (74-106)
[2022-02-05 07:17] LABS: Absolute Lymphocyte Count 0.35 X10^3/uL (0.83-4.51); Absolute Neutrophil Count 12.8 X10^3/uL (2.0-7.7); Basophil# 0.06 X10^3/uL; Basophil% 0.4 % (0-1); Eosinophil# 0.02 X10^3/uL; Eosinophils% 0.1 % (0-5); Hematocrit 25.6 % (40-54); Hemoglobin 7.9 g/dL (13.0-16.5); Lymphocyte # 0.35 X10^3/ul (0.83-4.51); Lymphocyte % 2.4 % (19-41); Mean Corp Hgb Conc 30.9 g/dL (32-36); Mean Corpuscular Hgb 31.9 pg (27.0-32.0); Mean Corpuscular Volume 103.2 fL (80-94); Mean Platelet Vol. 8.9 fl (6.2-12.0); Monocyte% 8.3 % (0-10); NRBC Flagged by Analyzer 0 % (0-5); Neutrophil # 12.78 X10^3/uL (2.7-7.7); Neutrophil % 88.2 % (47-70); POSITIVE DIFFERENTIAL YES; POSITIVE MORPHOLOGY YES; Platelet Count 122 K/mm3 (150-450); RBC Distribution Width CV 19.5 % (11.6-14.6); RBC Distribution Width SD 72.7 fl (35.1-43.9); Red Blood Count 2.48 M/mm3 (4.6-6.2); White Blood Count 14.5 K/mm3 (4.4-11.0)
[2022-02-05 07:20] LABS: Differential Indicated SCAN CRITERIA MET
[2022-02-05] MEDS: Ferrous Sulfate 325 MG Tablet PO ×2 (07:53→16:04)
[2022-02-05 08:04] LABS: Anion Gap 6 (5-15); BUN 24 mg/dL (7-18); BUN/Creat Ratio 5.8 RATIO (10-20); Calcium,Total 7.7 mg/dL (8.5-10.1); Chloride 100 mmol/L (98-107); Creatinine, Serum 4.11 mg/dL (0.70-1.30); EST Glomerular Filtration Rate 15 mL/min (>60); Est Glom Filt Rate - Afr Amer 18 mL/min (>60); Estimated Creatinine Clearance 14.52 ml/min; Glucose 118 mg/dL (74-106); Potassium 4.4 mmol/L (3.5-5.1); Sodium Level 136 mmol/L (136-145)
[2022-02-05 08:10] LABS: Bedside Glucose 56 mg/dL (74-106)
[2022-02-05 08:10] LABS: Bedside Glucose 57 mg/dL (74-106)
[2022-02-05 09:26] LABS: Anisocytosis 2+; Differential Comment SCANNED; Macrocytosis 1+; Microcytosis 1+
[2022-02-05] MEDS: Menthol/Lanolin/Calamine/Znox 113 GM Tube 1 APPLIC TOPICAL ×2 (10:05→21:50)
[2022-02-05] MEDS: Sertraline 50 MG Tablet PO (10:06)
[2022-02-05] MEDS: Folic Acid/Vitamin B Comp W-C 1 Capsule 1 CAP PO (10:06)
[2022-02-05] MEDS: guaiFENesin 1,200 MG Tablet 1200 MG PO ×2 (10:06→21:50)
[2022-02-05] MEDS: Allopurinol 100 MG Tablet PO (10:06)
[2022-02-05] MEDS: Montelukast 10 MG Tablet PO (10:07)
[2022-02-05] MEDS: Sucralfate 1 GM Tablet PO ×2 (10:08→16:04)
[2022-02-05 10:35] LABS: Bedside Glucose 139 mg/dL (74-106)
--- NOTE | 2022-02-05 12:30 | PN.HOSP_ITS ---
Subjective Subjective Patient seen and examined. He had no complaints and had an uneventful night. HE did have EGD again yesterday which showed a bleeding gastric ulcer which was treated. His BP is running low, in the 80s today. REview of systems otherwise negative. Objective Data Objective Data Vital Signs: Vital Signs Temp Pulse Resp BP Pulse Ox O2 Del Method O2 Flow Rate 98.9 F 80 18 87/62 L 95 Nasal Cannula 4 02/05/22 11:49 02/05/22 11:49 02/05/22 11:49 02/05/22 11:49 02/05/22 11:49 02/05/22 11:49 02/05/22 11:49 Oxygen Flow Rate (L/min) 4 Oxygen Delivery Method Nasal Cannula Weight: 190 lb 7.67 oz Body Mass Index (BMI) 29.5 Intake & Output: Intake and Output for Last 24 Hours 02/03/22 02/04/22 02/05/22 23:59 23:59 23:59 Intake Total 3238.75 / 3838.75 2298 / 2298 100 / 100 Output Total 0 / 0 2700 / 2700 Balance 3238.75 / 3838.75 -402 / -402 100 / 100 Lab / Micro Data Result Diagrams: 02/05/22 06:45 02/05/22 06:45 Labs: Laboratory Results - last 24 hr 02/02/22 15:25: Crossmatch See Detail 02/04/22 22:28: WBC 13.1 H, RBC 2.83 L, Hgb 8.7 L, Hct 29.0 L, MCV 102.5 H, MCH 30.7, MCHC 30.0 L, RDW Std Deviation 69.9 H, RDW Coeff of Nick 19.1 H, Plt Count 156, MPV 8.4, Immature Gran % (Auto) 0.300, Neut % (Auto) 84.3 H, Lymph % (Auto) 3.4 L, [place] % (Auto) 8.9, Eos % (Auto) 2.3, Baso % (Auto) 0.8, Absolute Neuts (auto) 11.1 H, Absolute Lymphs (auto) 0.45 L, Nucleated RBC % 0, Differential Comment SEE COMMENT, Platelet Estimate ADEQUATE, RBC Morphology N CHROM, Hypochromasia RARE, Anisocytosis 2+, Macrocytosis 2+, Ovalocytes RARE 02/04/22 22:28: Sodium 138, Potassium 3.6, Chloride 101, Carbon Dioxide 29.0, Anion Gap 8, BUN 21 H, Creatinine 3.36 H, Estim Creat Clear Calc 17.76, Est GFR (MDRD) Af Amer 23 L, Est GFR (MDRD) Non-Af 19 L, BUN/Creatinine Ratio 6.2 L, Glucose 54 L, Calcium 8.6 02/04/22 23:38: POC Glucose 56 L 02/04/22 23:46: POC Glucose 57 L 02/05/22 00:50: POC Glucose 94 02/05/22 04:01: POC Glucose 130 H 02/05/22 06:45: WBC 14.5 H, RBC 2.48 L, Hgb 7.9 L, Hct 25.6 L, MCV 103.2 H, MCH 31.9, MCHC 30.9 L, RDW Std Deviation 72.7 H, RDW Coeff of Nick 19.5 H, Plt Count 122 L, MPV 8.9, Immature Gran % (Auto) 0.600, Neut % (Auto) 88.2 H, Lymph % (Auto) 2.4 L, [place] % (Auto) 8.3, Eos % (Auto) 0.1, Baso % (Auto) 0.4, Absolute Neuts (auto) 12.8 H, Absolute Lymphs (auto) 0.35 L, Nucleated RBC % 0, Differential Comment SCANNED, Anisocytosis 2+, Microcytosis 1+, Macrocytosis 1+ 02/05/22 06:45: Sodium 136, Potassium 4.4, Chloride 100, Carbon Dioxide 30.0, Anion Gap 6, BUN 24 H, Creatinine 4.11 H, Estim Creat Clear Calc 14.52, Est GFR (MDRD) Af Amer 18 L, Est GFR (MDRD) Non-Af 15 L, BUN/Creatinine Ratio 5.8 L, Glucose 118 H, Calcium 7.7 L 02/05/22 10:03: POC Glucose 139 H Micro: Microbiology 02/02/22 15:14 Stool Stool Occult Blood (ANALIA) - Final Occult Blood Positive Radiography Diagnostic Testing: Radiology Impression Chest X-Ray 02/04/22 22:20 IMPRESSION: 1. Resolution of retrocardiac airspace disease and with decreasing small pleural effusions. 2. Increasing airspace disease within the left midlung and right mid to lower lung laterally, with additional development of asymmetric airspace disease in the left upper lobe; these worsening alveolar infiltrates could be due to worsening pulmonary edema, or possibly multifocal pneumonia, depending upon clinical history. Electronically Signed: Oracio Jefferson MD at 22:39 EST , Physical Exam Const alert, oriented x3 and no apparent distress General Appearance: cooperative, well kempt and well developed Orientation / Consciousness: awake HEENT normocephalic, head/scalp atraumatic, hearing grossly normal bilaterally, moist oral mucous membranes and oropharynx normal Eyes PERRL, EOMs intact bilaterally and conjunctivae normal Neck no lymphadenopathy, supple, no JVD, thyroid normal and no carotid bruits General: trachea midline Resp normal respiratory effort, no retractions, no use of accessory muscles and clear to auscultation bilaterally Auscultation: Negative for rales, rhonchi or wheezes Cardio regular rate, regular rhythm, S1 normal heart sound, S2 normal heart sound, no murmurs, no rub and no gallops GI normal to inspection, nondistended, normoactive bowel sounds, soft to palpation, non-tender and non-distended Extremity normal to inspection, full ROM and no clubbing, cyanosis or edema Skin no rashes or lesions noted General Skin Exam: no breakdown Neuro oriented x3, CN's II-XII intact bilaterally, moves all extremities, no focal motor deficits and no sensory deficits noted Sensorium / Orientation: awake and alert Speech: speech normal Motor Exam: strength 5/5 throughout Psych affect normal Assessment & Plan Assessment/Plan (1) Upper GI bleed: (2) Acute GI bleeding: (3) Symptomatic anemia: PLAN: Plan #Acute upper GI bleed * due to bleeding peptic ulcer and bleeding angiodysplastic lesions * transfused with one unit of PRBCs * had EGD which showed oozing gastric ulcer with visible vessel which was treated with heater probe and injected; also had 2 bleeding angiodysplastic lesions in the stomach which were treated with a heater probe. * on IV PPI and octreotide drip * Hb today is up to 7.9 today * has been transfused with a total of 2 units of PRBCs during this admission * repeat EGD showed a large amount of phytobezoar in the stomach,with an oozing gastric ulcer with pigmented material, treated with a heater probe; nromal esophagus and first part of duodenum * GI on board. * Remains on PPI drip and octreotide drip * on sucralfate * * * #Acute on chronic anemia: * due to GI bleed. s/p transfusion of 2 units of PRBC during this admission * Hb today is 7.9 today * #ESRD * on HD MWF. * nephrology on board for dialysis. * #Paroxysmal afib: eliquis dc'd o/a of GI bleed. On carvedilol and amiodarone. These were held today due to hypotension #HYpotension: * likely due to amiodarone nad carvedilol. * WIll hold these for now and monitor. Cannot hydrate aggressively due to him having ESRD. * on midodrine for hypotension #COPD: not in exacerbation. On breathing treatment with bronchodilators #CAD: stable. aspirin held. On statin and carvedilol #Depression; on zoloft. #HYperlipidemia: on statin DVT prophylaxis: SCDs. No anticoagulation due to GI bleed Charges/Coding Visit Charges Inpatient E&M: 83930 Subs Hosp L2
[2022-02-05] MEDS: Atorvastatin Calcium 20 MG Tablet PO (21:50)
[2022-02-05] MEDS: Gabapentin 100 MG Capsule 200 MG PO (21:54)
--- NOTE | 2022-02-05 22:26 | NURSING ---
Notified , no further orders
[2022-02-06] VITALS (9 sets, daily range): BP systolic 94–115; BP diastolic 47–86; PULSE 74–79; RESP 18–20; TEMP 36.4–37; O2SAT 93–100
[2022-02-06] MEDS: Levothyroxine 50 MCG Tablet PO (05:46)
[2022-02-06 05:55] LABS: Absolute Lymphocyte Count 0.75 X10^3/uL (0.83-4.51); Absolute Neutrophil Count 10.4 X10^3/uL (2.0-7.7); Basophil# 0.09 X10^3/uL; Basophil% 0.7 % (0-1); Eosinophils% 3.2 % (0-5); Hemoglobin 7.4 g/dL (13.0-16.5); Lymphocyte # 0.75 X10^3/ul (0.83-4.51); Mean Corp Hgb Conc 30.8 g/dL (32-36); Mean Corpuscular Hgb 31.4 pg (27.0-32.0); Mean Corpuscular Volume 101.7 fL (80-94); Mean Platelet Vol. 8.9 fl (6.2-12.0); Monocyte# 0.87 X10^3/uL; Monocyte% 6.9 % (0-10); NRBC Flagged by Analyzer 0 % (0-5); Neutrophil # 10.36 X10^3/uL (2.7-7.7); Neutrophil % 82.6 % (47-70); POSITIVE MORPHOLOGY YES; Platelet Count 143 K/mm3 (150-450); RBC Distribution Width CV 18.7 % (11.6-14.6); RBC Distribution Width SD 67.7 fl (35.1-43.9); Red Blood Count 2.36 M/mm3 (4.6-6.2); White Blood Count 12.5 K/mm3 (4.4-11.0)
[2022-02-06 06:14] LABS: Differential Indicated SCAN CRITERIA MET
[2022-02-06 06:31] LABS: Anion Gap 8 (5-15); BUN 39 mg/dL (7-18); BUN/Creat Ratio 7.4 RATIO (10-20); Calcium,Total 8.1 mg/dL (8.5-10.1); Chloride 95 mmol/L (98-107); Creatinine, Serum 5.27 mg/dL (0.70-1.30); EST Glomerular Filtration Rate 11 mL/min (>60); Est Glom Filt Rate - Afr Amer 14 mL/min (>60); Estimated Creatinine Clearance 11.32 ml/min; Glucose 96 mg/dL (74-106); Potassium 4.4 mmol/L (3.5-5.1); Sodium Level 130 mmol/L (136-145)
[2022-02-06] MEDS: Sucralfate 1 GM Tablet PO ×3 (06:42→17:23)
[2022-02-06 06:51] LABS: Anisocytosis 1+; Differential Comment SCANNED; Macrocytosis 1+
[2022-02-06] MEDS: Ferrous Sulfate 325 MG Tablet PO ×2 (08:49→17:23)
[2022-02-06] MEDS: Menthol/Lanolin/Calamine/Znox 113 GM Tube 1 APPLIC TOPICAL ×2 (08:49→21:46)
[2022-02-06] MEDS: Sertraline 50 MG Tablet PO (08:51)
[2022-02-06] MEDS: Montelukast 10 MG Tablet PO (08:51)
[2022-02-06] MEDS: Allopurinol 100 MG Tablet PO (08:51)
[2022-02-06] MEDS: guaiFENesin 1,200 MG Tablet 1200 MG PO ×2 (08:51→21:48)
[2022-02-06] MEDS: Folic Acid/Vitamin B Comp W-C 1 Capsule 1 CAP PO (08:52)
--- NOTE | 2022-02-06 11:50 | PN.HOSP_ITS ---
Subjective Subjective Patient seen and examined. He felt well and had no active complaints. HE had an uneventful night. REview of systems is otherwise negative. Objective Data Objective Data Vital Signs: Vital Signs Temp Pulse Resp BP Pulse Ox O2 Del Method O2 Flow Rate 98.6 F 78 18 99/56 L 93 Nasal Cannula 4 02/06/22 11:00 02/06/22 11:00 02/06/22 11:00 02/06/22 11:00 02/06/22 11:04 02/06/22 11:04 02/06/22 11:04 Oxygen Flow Rate (L/min) 4 Oxygen Delivery Method Nasal Cannula Weight: 190 lb 7.67 oz Body Mass Index (BMI) 29.5 Intake & Output: Intake and Output for Last 24 Hours 02/04/22 02/05/22 02/06/22 23:59 23:59 23:59 Intake Total 2298 / 2298 1561.33 / 1561.33 409 / 409 Output Total 2700 / 2700 0 / 0 Balance -402 / -402 1561.33 / 1561.33 409 / 409 Lab / Micro Data Result Diagrams: 02/06/22 05:39 02/06/22 05:39 Labs: Laboratory Results - last 24 hr 02/06/22 05:39: WBC 12.5 H, RBC 2.36 L, Hgb 7.4 L, Hct 24.0 L, MCV 101.7 H, MCH 31.4, MCHC 30.8 L, RDW Std Deviation 67.7 H, RDW Coeff of Nick 18.7 H, Plt Count 143 L, MPV 8.9, Immature Gran % (Auto) 0.600, Neut % (Auto) 82.6 H, Lymph % (Auto) 6.0 L, [place] % (Auto) 6.9, Eos % (Auto) 3.2, Baso % (Auto) 0.7, Absolute Neuts (auto) 10.4 H, Absolute Lymphs (auto) 0.75 L, Nucleated RBC % 0, Differential Comment SCANNED, Anisocytosis 1+, Macrocytosis 1+ 02/06/22 05:39: Sodium 130 L, Potassium 4.4, Chloride 95 L, Carbon Dioxide 27.0, Anion Gap 8, BUN 39 H, Creatinine 5.27 H, Estim Creat Clear Calc 11.32, Est GFR (MDRD) Af Amer 14 L, Est GFR (MDRD) Non-Af 11 L, BUN/Creatinine Ratio 7.4 L, Glucose 96, Calcium 8.1 L Micro: Microbiology 02/02/22 15:14 Stool Stool Occult Blood (ANALIA) - Final Occult Blood Positive Physical Exam Const alert, oriented x3 and no apparent distress General Appearance: cooperative, well kempt and well developed Orientation / Consciousness: awake, oriented to person, oriented to place and oriented to time HEENT normocephalic, head/scalp atraumatic, hearing grossly normal bilaterally, moist oral mucous membranes and oropharynx normal Head and Scalp: normocephalic Mouth: oral and palatal mucosa normal Eyes PERRL, EOMs intact bilaterally and conjunctivae normal Neck no lymphadenopathy, supple, no JVD, thyroid normal and no carotid bruits General: trachea midline Resp normal respiratory effort, no retractions, no use of accessory muscles and clear to auscultation bilaterally Auscultation: Negative for rales, rhonchi or wheezes Cardio regular rate, regular rhythm, S1 normal heart sound, S2 normal heart sound, no murmurs, no rub and no gallops GI normal to inspection, nondistended, normoactive bowel sounds, soft to palpation, non-tender and non-distended Extremity normal to inspection, full ROM and no clubbing, cyanosis or edema Skin no rashes or lesions noted General Skin Exam: no breakdown Neuro oriented x3, CN's II-XII intact bilaterally, moves all extremities and no focal motor deficits Sensorium / Orientation: awake and alert Speech: speech normal Motor Exam: strength 5/5 throughout Psych affect normal Assessment & Plan Assessment/Plan (1) Upper GI bleed: (2) Acute GI bleeding: (3) Symptomatic anemia: PLAN: Plan #Acute upper GI bleed * due to bleeding peptic ulcer and bleeding angiodysplastic lesions * had EGD which showed oozing gastric ulcer with visible vessel which was treated with heater probe and injected; also had 2 bleeding angiodysplastic lesions in the stomach which were treated with a heater probe. * on IV PPI and octreotide drip * has been transfused with a total of 2 units of PRBCs during this admission * repeat EGD showed a large amount of phytobezoar in the stomach,with an oozing gastric ulcer with pigmented material, treated with a heater probe; normal esophagus and first part of duodenum * GI on board. * Hb today is down to 7.4 * Remains on PPI drip and octreotide drip * on sucralfate * #Acute on chronic anemia: * due to GI bleed. s/p transfusion of 2 units of PRBC during this admission * Hb today is 7.4 today, down from 7.9. * #ESRD * on HD MWF. * nephrology on board for dialysis. * #Paroxysmal afib: deann dc'd o/a of GI bleed. On carvedilol and amiodarone. These were held today due to hypotension #HYpotension: * likely due to amiodarone and carvedilol. * hypotension is chronic. Cannot hydrate aggressively due to him having ESRD. * on midodrine for hypotension * hold amiodarone and carvedilol #COPD: not in exacerbation. On breathing treatment with bronchodilators #CAD: stable. aspirin held. On statin and carvedilol; carvedilol held #Depression; on zoloft. #HYperlipidemia: on statin DVT prophylaxis: SCDs. No anticoagulation due to GI bleed Charges/Coding Visit Charges Inpatient E&M: 71393 Subs Hosp L2
--- NOTE | 2022-02-06 20:16 | PN.RENAL_ITS ---
Subjective Subjective Following for ESRD. The patient denies chest pain, shortness of breath, or nausea. Objective Data Objective Data Vital Signs: Vital Signs Temp Pulse Resp BP Pulse Ox O2 Del Method O2 Flow Rate 97.5 F L 78 18 115/86 H 100 Nasal Cannula 4 02/06/22 16:17 02/06/22 16:17 02/06/22 16:17 02/06/22 16:17 02/06/22 16:17 02/06/22 16:17 02/06/22 16:17 Oxygen Flow Rate (L/min) 4 Oxygen Delivery Method Nasal Cannula Weight: 86.4 kg Body Mass Index (BMI) 29.5 Intake & Output: Intake and Output for Last 24 Hours 02/04/22 02/05/22 02/06/22 23:59 23:59 23:59 Intake Total 2298 / 2298 1561.33 / 1561.33 508.67 / 508.67 Output Total 2700 / 2700 0 / 0 Balance -402 / -402 1561.33 / 1561.33 508.67 / 508.67 Lab / Micro Data Result Diagrams: 02/06/22 05:39 02/06/22 05:39 Labs: Laboratory Results - last 24 hr 02/06/22 05:39: WBC 12.5 H, RBC 2.36 L, Hgb 7.4 L, Hct 24.0 L, MCV 101.7 H, MCH 31.4, MCHC 30.8 L, RDW Std Deviation 67.7 H, RDW Coeff of Nick 18.7 H, Plt Count 143 L, MPV 8.9, Immature Gran % (Auto) 0.600, Neut % (Auto) 82.6 H, Lymph % (Auto) 6.0 L, [place] % (Auto) 6.9, Eos % (Auto) 3.2, Baso % (Auto) 0.7, Absolute Neuts (auto) 10.4 H, Absolute Lymphs (auto) 0.75 L, Nucleated RBC % 0, Diff erential Comment SCANNED, Anisocytosis 1+, Macrocytosis 1+ 02/06/22 05:39: Sodium 130 L, Potassium 4.4, Chloride 95 L, Carbon Dioxide 27.0, Anion Gap 8, BUN 39 H, Creatinine 5.27 H, Estim Creat Clear Calc 11.32, Est GFR (MDRD) Af Amer 14 L, Est GFR (MDRD) Non-Af 11 L, BUN/Creatinine Ratio 7.4 L, Glucose 96, Calcium 8.1 L Micro: Microbiology 02/02/22 15:14 Stool Stool Occult Blood (ANALIA) - Final Occult Blood Positive Physical Exam Const Constitutional Narrative: General: Restless. HEENT: Normocephalic, atraumatic.? PERRLA, EOMI.? Hearing is intact.? Mucous membranes moist without erythema. Neck: Supple, no JVD. Heart: Normal S1, S2.? No rubs, murmurs or gallops. Lungs: Decreased breath sound at bases.? No wheezing. Abdomen: Normal bowel sounds, soft, nontender, no organomegaly, no guarding or rebound. Extremity: There is 2+ lower extremity edema.? There is a left lower arm AV graft which has good thrill and bruit. Assessment & Plan Assessment/Plan (1) End-stage renal disease on hemodialysis: PLAN: The patient normally dialyzes on MWF schedule at [facility]. No need for dialysis today. We will arrange for dialysis tomorrow. Recheck labs tomorrow. (2) Hypertension: PLAN: BP is stable today. The patient is on both carvedilol as well as midodrine. (3) Upper GI bleed: PLAN: The patient has angiodysplastic gastric lesion along with gastric ulcers. Lesions were treated with heater probe by GI on 02/03/2022. Further drop in hemoglobin on 02/04/2022. The patient required another EGD today with further treatment of gastric ulcer with heater probe as per GI. (4) Pleural effusion: PLAN: The patient had Pleurx catheter which was draining his pleural effusion in the past. Catheters have been removed since his last admission. He is on nasal cannula oxygen. Ultrafiltration with dialysis today.
[2022-02-06] MEDS: Gabapentin 100 MG Capsule 200 MG PO (21:51)
[2022-02-06] MEDS: Atorvastatin Calcium 20 MG Tablet PO (21:51)
[2022-02-07] VITALS (15 sets, daily range): BP systolic 98–136; BP diastolic 47–104; PULSE 67–87; RESP 16–20; TEMP 36.3–37.2; O2SAT 88–100
[2022-02-07 06:03] LABS: Absolute Neutrophil Count 7.6 X10^3/uL (2.0-7.7); Basophil# 0.07 X10^3/uL; Basophil% 0.8 % (0-1); Eosinophil# 0.25 X10^3/uL; Eosinophils% 2.7 % (0-5); Hematocrit 24.3 % (40-54); Hemoglobin 7.6 g/dL (13.0-16.5); Lymphocyte % 5.5 % (19-41); Mean Corp Hgb Conc 31.3 g/dL (32-36); Mean Corpuscular Hgb 31.7 pg (27.0-32.0); Mean Corpuscular Volume 101.3 fL (80-94); Mean Platelet Vol. 9.5 fl (6.2-12.0); Monocyte# 0.67 X10^3/uL; Monocyte% 7.3 % (0-10); NRBC Flagged by Analyzer 0 % (0-5); Neutrophil # 7.64 X10^3/uL (2.7-7.7); Neutrophil % 83.3 % (47-70); POSITIVE DIFFERENTIAL YES; POSITIVE MORPHOLOGY YES; Platelet Count 178 K/mm3 (150-450); RBC Distribution Width CV 17.9 % (11.6-14.6); RBC Distribution Width SD 65.8 fl (35.1-43.9); White Blood Count 9.2 K/mm3 (4.4-11.0)
[2022-02-07 06:08] LABS: Differential Indicated SCAN CRITERIA MET
[2022-02-07 06:28] LABS: Anion Gap 12 (5-15); BUN 50 mg/dL (7-18); BUN/Creat Ratio 8.1 RATIO (10-20); Calcium,Total 7.9 mg/dL (8.5-10.1); Chloride 89 mmol/L (98-107); Creatinine, Serum 6.19 mg/dL (0.70-1.30); EST Glomerular Filtration Rate 9 mL/min (>60); Est Glom Filt Rate - Afr Amer 11 mL/min (>60); Estimated Creatinine Clearance 9.64 ml/min; Glucose 108 mg/dL (74-106); Potassium 4.8 mmol/L (3.5-5.1); Sodium Level 124 mmol/L (136-145)
[2022-02-07 07:03] LABS: Anisocytosis 1+
[2022-02-07 07:04] LABS: Macrocytosis 2+
--- NOTE | 2022-02-07 08:59 | PN.HOSP_ITS ---
Subjective Subjective Patient seen and examined today. He had no active complaints and had an uneventful night. Hb today is 7.6. Review of systems is otherwise negative. Objective Data Objective Data Vital Signs: Vital Signs Temp Pulse Resp BP Pulse Ox O2 Del Method O2 Flow Rate 97.4 F L 67 20 H 105/69 99 Nasal Cannula 4 02/07/22 04:31 02/07/22 04:31 02/07/22 04:31 02/07/22 04:31 02/07/22 04:31 02/07/22 07:42 02/07/22 07:42 Oxygen Flow Rate (L/min) 4 Oxygen Delivery Method Nasal Cannula Weight: 197 lb 1.492 oz Body Mass Index (BMI) 29.5 Intake & Output: Intake and Output for Last 24 Hours 02/05/22 02/06/22 02/07/22 23:59 23:59 23:59 Intake Total 1561.33 / 1561.33 628.67 / 628.67 351 / 351 Output Total 0 / 0 Balance 1561.33 / 1561.33 628.67 / 628.67 351 / 351 Lab / Micro Data Result Diagrams: 02/07/22 05:41 02/07/22 05:41 Labs: Laboratory Results - last 24 hr 02/07/22 05:41: WBC 9.2, RBC 2.40 L, Hgb 7.6 L, Hct 24.3 L, MCV 101.3 H, MCH 31.7, MCHC 31.3 L, RDW Std Deviation 65.8 H, RDW Coeff of Nick 17.9 H, Plt Count 178, MPV 9.5, Immature Gran % (Auto) 0.400, Neut % (Auto) 83.3 H, Lymph % (Auto) 5.5 L, [place] % (Auto) 7.3, Eos % (Auto) 2.7, Baso % (Auto) 0.8, Absolute Neuts (auto) 7.6, Absolute Lymphs (auto) 0.50 L, Nucleated RBC % 0, Anisocytosis 1+, Macrocytosis 2+ 02/07/22 05:41: Sodium 124 L, Potassium 4.8, Chloride 89 L, Carbon Dioxide 23.0, Anion Gap 12, BUN 50 H, Creatinine 6.19 H, Estim Creat Clear Calc 9.64, Est GFR (MDRD) Af Amer 11 L, Est GFR (MDRD) Non-Af 9 L, BUN/Creatinine Ratio 8.1 L, Glucose 108 H, Calcium 7.9 L Micro: Microbiology 02/02/22 15:14 Stool Stool Occult Blood (ANALIA) - Final Occult Blood Positive Physical Exam Const alert, oriented x3 and no apparent distress General Appearance: cooperative, well kempt and well developed Orientation / Consciousness: awake, oriented to person, oriented to place and oriented to time HEENT normocephalic, head/scalp atraumatic, hearing grossly normal bilaterally, moist oral mucous membranes and oropharynx normal Head and Scalp: normocephalic Eyes PERRL, EOMs intact bilaterally and conjunctivae normal Neck no lymphadenopathy, supple, no JVD, thyroid normal and no carotid bruits General: trachea midline Resp normal respiratory effort, no retractions, no use of accessory muscles and clear to auscultation bilaterally Auscultation: Negative for rales, rhonchi or wheezes Cardio regular rate, regular rhythm, S1 normal heart sound, S2 normal heart sound, no murmurs, no rub and no gallops GI normal to inspection, nondistended, normoactive bowel sounds, soft to palpation, non-tender and non-distended Extremity normal to inspection, full ROM and no clubbing, cyanosis or edema Skin no rashes or lesions noted General Skin Exam: no breakdown Neuro oriented x3, CN's II-XII intact bilaterally, moves all extremities and no focal motor deficits Sensorium / Orientation: awake and alert Speech: speech normal Motor Exam: strength 5/5 throughout Psych affect normal Assessment & Plan Assessment/Plan (1) Upper GI bleed: (2) Acute GI bleeding: (3) Symptomatic anemia: PLAN: Plan #Acute upper GI bleed * due to bleeding peptic ulcer and bleeding angiodysplastic lesions * had EGD which showed oozing gastric ulcer with visible vessel which was treated with heater probe and injected; also had 2 bleeding angiodysplastic lesions in the stomach which were treated with a heater probe. * on IV PPI and octreotide drip * has been transfused with a total of 2 units of PRBCs during this admission * repeat EGD showed a large amount of phytobezoar in the stomach,with an oozing gastric ulcer with pigmented material, treated with a heater probe; normal esophagus and first part of duodenum * GI on board. * Hb today is 7.6 * Remains on PPI drip and octreotide drip * on sucralfate * per GI, for repeat EGD today #Acute on chronic anemia: * due to GI bleed. s/p transfusion of 2 units of PRBC during this admission * Hb today is 7.6. * transfuse if Hb <7 * #ESRD * on HD MWF. * nephrology on board for dialysis. * for dialysis today * #Paroxysmal afib: deann dc'd o/a of GI bleed. On carvedilol and amiodarone. These have been held due to hypotension #HYpotension: * likely due to amiodarone and carvedilol. * hypotension is chronic. Cannot hydrate aggressively due to him having ESRD. * on midodrine for hypotension * hold amiodarone and carvedilol #COPD: not in exacerbation. On breathing treatment with bronchodilators #CAD: stable. aspirin held. On statin and carvedilol; carvedilol held #Depression; on zoloft. #HYperlipidemia: on statin DVT prophylaxis: SCDs. No anticoagulation due to GI bleed Charges/Coding Visit Charges Inpatient E&M: 72663 Subs Hosp L2
[2022-02-07] MEDS: Lactated Ringers 1,000 ML 15 ML IV (12:11)
--- NOTE | 2022-02-07 12:44 | DIALYSIS ---
hemodialysis completed x 3 hrs. Access via LFA AVG. Net UF 2000ml. pt wanda well. See HD flowsheet on chart.
--- NOTE | 2022-02-07 13:47 | OP.EGD_ITS ---
Patient Name: Minh Gonzalez Procedure Date: 02/07/2022 1:18 PM Date of : 1945 Age: 76 Procedure: Upper GI endoscopy Indications: Iron deficiency anemia, Recent gastrointestinal bleeding Providers: Khari Mohr DO Medicines: Monitored Anesthesia Care Patient Profile: This is a 76 year old male. Refer to note in patient chart for documentation of history and physical. Patient has symptoms of acute nausea. Complications: No immediate complications. Procedure: Pre-Anesthesia Assessment: - Prior to the procedure, a History and Physical was performed, and patient medications and allergies were reviewed. The patient is competent. The risks and benefits of the procedure and the sedation options and risks were discussed with the patient. All questions were answered and informed consent was obtained. Patient identification and proposed procedure were verified by the physician in the pre-procedure area. Mental Status Examination: alert and oriented. Airway Examination: normal oropharyngeal airway and neck mobility. Respiratory Examination: clear to auscultation. CV Examination: normal. Prophylactic Antibiotics: The patient does not require prophylactic antibiotics. Prior Anticoagulants: The patient has taken no previous anticoagulant or antiplatelet agents. ASA Grade Assessment: II - A patient with mild systemic disease. After reviewing the risks and benefits, the patient was deemed in satisfactory condition to undergo the procedure. The anesthesia plan was to use monitored anesthesia care (MAC). Immediately prior to administration of medications, the patient was re-assessed for adequacy to receive sedatives. The heart rate, respiratory rate, oxygen saturations, blood pressure, adequacy of pulmonary ventilation, and response to care were monitored throughout the procedure. The physical status of the patient was re-assessed after the procedure. After obtaining informed consent, the endoscope was passed under direct vision. Throughout the procedure, the patient's blood pressure, pulse, and oxygen saturations were monitored continuously. The Endoscope was introduced through the mouth, and advanced to the second part of duodenum. The upper GI endoscopy was accomplished without difficulty. The patient tolerated the procedure well. Scope In: 1:29:41 PM Scope Out: 1:33:44 PM Total Procedure Duration Time 0 hours 4 minutes 3 seconds Findings: The examined esophagus was normal. Four oozing cratered gastric ulcers with a visible vessel were found in the gastric body and on the lesser curvature of the stomach. The largest lesion was 6 mm in largest dimension. Coagulation for hemostasis using argon plasma at 0.3 liters/minute and 20 [place] was successful. Estimated blood loss was minimal. The second portion of the duodenum was normal. Impression: - Normal esophagus. - Oozing gastric ulcers with a visible vessel. Treated with argon plasma coagulation (APC). - Normal second portion of the duodenum. - No specimens collected. Recommendation: - Return patient to [facility] for [facility] care. - Use Protonix (pantoprazole) 40 mg PO BID for 6 months. - Use misoprostol 200 micrograms PO QID for 4 weeks. - Continue present medications. Procedure Code(s): --- Professional --- 92369, Esophagogastroduodenoscopy, flexible, transoral; with control of bleeding, any method CPT copyright 2017 [employer]. All rights reserved. The codes documented in this report are preliminary and upon medical biller coder review may be revised to meet current compliance requirements. Khari Mohr DO 02/07/2022 1:47:05 PM This report has been signed electronically. Number of Addenda: 0 Note Initiated On: 02/07/2022 1:18 PM
--- NOTE | 2022-02-07 13:47 | OP.CCLET_ITS ---
02/07/2022 Zack Stacy Re : Upper GI endoscopy procedure for Minh Stacy This procedure was performed on Monday, February 07, 2022. My impressions and recommendations are as follows: Impressions : - Normal esophagus. - Oozing gastric ulcers with a visible vessel. Treated with argon plasma coagulation (APC). - Normal second portion of the duodenum. - No specimens collected. Recommendations : - Return patient to [facility] for [facility] care. - Use Protonix (pantoprazole) 40 mg PO BID for 6 months. - Use misoprostol 200 micrograms PO QID for 4 weeks. - Continue present medications. My findings are described in the full procedure note, which is enclosed. If I can be of further assistance, please feel free to contact me at . Sincerely, Khari Friend, 02/07/2022 1:47:05 PM This report has been signed electronically.
[2022-02-07] MEDS: 0.9% Saline Lock 10 ML Syringe IV (14:28)
--- NOTE | 2022-02-07 15:44 | PN.RENAL_ITS ---
Subjective Subjective Resting in bed, at bedside. Denies any complaints. Reports tolerated dialysis well without cramping. Objective Data Objective Data Vital Signs: Vital Signs Temp Pulse Resp BP Pulse Ox O2 Del Method O2 Flow Rate 99.0 F 81 18 98/62 96 Nasal Cannula 3.5 02/07/22 14:23 02/07/22 14:23 02/07/22 14:23 02/07/22 14:23 02/07/22 14:23 02/07/22 14:23 02/07/22 14:23 Oxygen Flow Rate (L/min) 3.5 Oxygen Delivery Method Nasal Cannula Weight: 89.4 kg Body Mass Index (BMI) 29.5 Intake & Output: Intake and Output for Last 24 Hours 02/05/22 02/06/22 02/07/22 23:59 23:59 23:59 Intake Total 1561.33 / 1561.33 628.67 / 628.67 494.83 / 494.83 Output Total 0 / 0 1999 Balance 1561.33 / 1561.33 628.67 / 628.67 -1505.17 / -1505.17 Lab / Micro Data Result Diagrams: 02/07/22 05:41 02/07/22 05:41 Labs: Laboratory Results - last 24 hr 02/07/22 05:41: WBC 9.2, RBC 2.40 L, Hgb 7.6 L, Hct 24.3 L, MCV 101.3 H, MCH 31.7, MCHC 31.3 L, RDW Std Deviation 65.8 H, RDW Coeff of Nick 17.9 H, Plt Count 178, MPV 9.5, Immature Gran % (Auto) 0.400, Neut % (Auto) 83.3 H, Lymph % (Auto) 5.5 L, [place] % (Auto) 7.3, Eos % (Auto) 2.7, Baso % (Auto) 0.8, Absolute Neuts (auto) 7.6, Absolute Lymphs (auto) 0.50 L, Nucleated RBC % 0, Anisocytosis 1+, Macrocytosis 2+ 02/07/22 05:41: Sodium 124 L, Potassium 4.8, Chloride 89 L, Carbon Dioxide 23.0, Anion Gap 12, BUN 50 H, Creatinine 6.19 H, Estim Creat Clear Calc 9.64, Est GFR (MDRD) Af Amer 11 L, Est GFR (MDRD) Non-Af 9 L, BUN/Creatinine Ratio 8.1 L, Glucose 108 H, Calcium 7.9 L Micro: Microbiology 02/02/22 15:14 Stool Stool Occult Blood (ANALIA) - Final Occult Blood Positive Physical Exam Const Constitutional Narrative: General: Alert and oriented. HEENT: Normocephalic, atraumatic.? Neck: Supple, no JVD. Heart: Normal S1, S2.? No rubs, murmurs or gallops. Lungs: Lung sounds clear anteriorly and posteriorly Abdomen: Normal bowel sounds, soft, nontende Extremity: 1+ bilateral lower extremity edema.? Left lower arm AV graft which has good thrill and bruit. Assessment & Plan Assessment/Plan (1) End-stage renal disease on hemodialysis: PLAN: The patient normally dialyzes on MWF schedule at [facility]. Patient dialyzed today over 3.5hrs with 2 L fluid removed. (2) Hypertension: PLAN: BP is stable, patient is on both carvedilol as well as midodrine predialysis. Recommend holding carvedilol mornings of dialysis (3) Upper GI bleed: PLAN: The patient has angiodysplastic gastric lesion along with gastric ulcers. Lesions were treated with heater probe by GI on 02/03/2022. Further drop in hemoglobin on 02/04/2022. The patient required another EGD 02/04 with further treatment of gastric ulcer with heater probe as per GI. He then had another upper GI today, noted oozing gastric ulcers with visible vessel treated with argon plasma coagulation. At discharge: Protonix 40 mg twice daily for 6 months, misoprostol 200 mcg 4 times daily for 4 weeks Hemoglobin 7.6 today (4) Pleural effusion: PLAN: The patient had Pleurx catheter which was draining his pleural effusion in the past. Catheters have been removed since his last admission. He is on nasal cannula oxygen. tolerated 2L UF with HD today.
[2022-02-07] MEDS: Sucralfate 1 GM Tablet PO (16:41)
[2022-02-07] MEDS: Ferrous Sulfate 325 MG Tablet PO (16:41)
[2022-02-07] MEDS: Menthol/Lanolin/Calamine/Znox 113 GM Tube 1 APPLIC TOPICAL (22:49)
[2022-02-07] MEDS: guaiFENesin 1,200 MG Tablet 1200 MG PO (22:54)
[2022-02-07] MEDS: Gabapentin 100 MG Capsule 200 MG PO (22:54)
[2022-02-07] MEDS: Atorvastatin Calcium 20 MG Tablet PO (22:54)
[2022-02-08 04:07] VITALS: BP 103/54; PULSE 74; RESP 18; TEMP 36.6; O2SAT 98
[2022-02-08] MEDS: Sucralfate 1 GM Tablet PO ×2 (06:25→10:11)
[2022-02-08] MEDS: Levothyroxine 50 MCG Tablet PO (06:25)
[2022-02-08 06:32] LABS: Absolute Lymphocyte Count 0.44 X10^3/uL (0.83-4.51); Absolute Neutrophil Count 4.7 X10^3/uL (2.0-7.7); Basophil# 0.11 X10^3/uL; Basophil% 1.7 % (0-1); Eosinophil# 0.37 X10^3/uL; Eosinophils% 5.7 % (0-5); Hematocrit 23.4 % (40-54); Hemoglobin 7.4 g/dL (13.0-16.5); Lymphocyte # 0.44 X10^3/ul (0.83-4.51); Lymphocyte % 6.8 % (19-41); Mean Corp Hgb Conc 31.6 g/dL (32-36); Mean Corpuscular Hgb 31.5 pg (27.0-32.0); Mean Corpuscular Volume 99.6 fL (80-94); Mean Platelet Vol. 8.8 fl (6.2-12.0); Monocyte# 0.84 X10^3/uL; Monocyte% 12.9 % (0-10); NRBC Flagged by Analyzer 0 % (0-5); Neutrophil # 4.71 X10^3/uL (2.7-7.7); Neutrophil % 72.6 % (47-70); POSITIVE DIFFERENTIAL YES; Platelet Count 155 K/mm3 (150-450); RBC Distribution Width CV 17.6 % (11.6-14.6); RBC Distribution Width SD 64.1 fl (35.1-43.9); Red Blood Count 2.35 M/mm3 (4.6-6.2); White Blood Count 6.5 K/mm3 (4.4-11.0)
[2022-02-08 06:35] LABS: Differential Indicated SCAN CRITERIA MET
[2022-02-08 06:58] LABS: Anisocytosis 1+; Macrocytosis 1+; Target Cells RARE
[2022-02-08 07:01] LABS: Anion Gap 5 (5-15); BUN 25 mg/dL (7-18); BUN/Creat Ratio 6.1 RATIO (10-20); Calcium,Total 7.7 mg/dL (8.5-10.1); Chloride 97 mmol/L (98-107); EST Glomerular Filtration Rate 15 mL/min (>60); Est Glom Filt Rate - Afr Amer 18 mL/min (>60); Estimated Creatinine Clearance 14.55 ml/min; Glucose 92 mg/dL (74-106); Potassium 3.7 mmol/L (3.5-5.1); Sodium Level 132 mmol/L (136-145)
[2022-02-08] MEDS: Ferrous Sulfate 325 MG Tablet PO (07:52)
[2022-02-08 08:28] VITALS: O2SAT 94
[2022-02-08 08:45] VITALS: BP 95/69; PULSE 78; RESP 18; TEMP 36.7; O2SAT 98
[2022-02-08] MEDS: guaiFENesin 1,200 MG Tablet 1200 MG PO (10:11)
[2022-02-08] MEDS: Montelukast 10 MG Tablet PO (10:11)
[2022-02-08] MEDS: Menthol/Lanolin/Calamine/Znox 113 GM Tube 1 APPLIC TOPICAL (10:12)
[2022-02-08] MEDS: Folic Acid/Vitamin B Comp W-C 1 Capsule 1 CAP PO (10:12)
[2022-02-08] MEDS: Carvedilol 6.25 MG Tablet PO (10:12)
[2022-02-08] MEDS: Sertraline 50 MG Tablet PO (10:12)
[2022-02-08] MEDS: Amiodarone 200 MG Tablet 100 MG PO (10:12)
[2022-02-08] MEDS: Allopurinol 100 MG Tablet PO (10:14)
--- NOTE | 2022-02-08 10:51 | CASEMGMT ---
Addendum entered by Mana Martin 02/08/22 12:54: HALYE CM in to pt room, pt with visitor at bedside. Pt states he is happy to be going home and still would like to resume his [facility] services. Pt denies any further homegoing needs. Original Note: Updated Maxine at [facility] that pt will dc today.
[2022-02-08] MEDS: miSOPROStol 200 MCG Tablet PO (12:59)
--- NOTE | 2022-02-08 13:22 | DS.PCM_ITS ---
Providers Date of Admission: 02/02/22 Date of Discharge: 02/08/22 Primary Care Physician: Dr. Zack Stacy MD Consultations 02/02/22 18:56 Consult: Gastroenterology Routine Consulting Provider: [facility] Reason for Consult: upper GI bleed EMERGENT Consult: No MD Notified: Yes Date Notified: 02/02/22 Time Notified: 17:08 Method of Notification: Verbal Reason For Visit: GI BLEED Diagnosis Discharge Diagnosis (1) End-stage renal disease on hemodialysis: Status: Acute Code(s): N18.6 - End stage renal disease; Z99.2 - Dependence on renal dialysis (2) Hypertension: Status: Chronic Code(s): I10 - Essential (primary) hypertension (3) Upper GI bleed: Status: Acute Code(s): K92.2 - Gastrointestinal hemorrhage, unspecified (4) Pleural effusion: Status: Acute Code(s): J90 - Pleural effusion, not elsewhere classified Plan #Acute upper GI bleed * due to bleeding peptic ulcer and bleeding angiodysplastic lesions * had EGD which showed oozing gastric ulcer with visible vessel which was treated with heater probe and injected; also had 2 bleeding angiodysplastic lesions in the stomach which were treated with a heater probe. * on IV PPI and octreotide drip * has been transfused with a total of 2 units of PRBCs during this admission * repeat EGD showed a large amount of phytobezoar in the stomach,with an oozing gastric ulcer with pigmented material, treated with a heater probe; normal esophagus and first part of duodenum * GI on board. * Hb today is 7.6 * Remains on PPI drip and octreotide drip * on sucralfate * per GI, for repeat EGD today #Acute on chronic anemia: * due to GI bleed. s/p transfusion of 2 units of PRBC during this admission * Hb today is 7.6. * transfuse if Hb <7 * #ESRD * on HD MWF. * nephrology on board for dialysis. * for dialysis today * #Paroxysmal afib: eliquis dc'd o/a of GI bleed. On carvedilol and amiodarone. These have been held due to hypotension #HYpotension: * likely due to amiodarone and carvedilol. * hypotension is chronic. Cannot hydrate aggressively due to him having ESRD. * on midodrine for hypotension * hold amiodarone and carvedilol #COPD: not in exacerbation. On breathing treatment with bronchodilators #CAD: stable. aspirin held. On statin and carvedilol; carvedilol held #Depression; on zoloft. #HYperlipidemia: on statin DVT prophylaxis: SCDs. No anticoagulation due to GI bleed Medications at Discharge Home Medications allopurinol 100 mg tablet 100 mg PO DAILY GOUT 05/03/18 nitroglycerin 0.4 mg sublingual tablet 0.4 mg sublingual Q5-15M PRN chest pain 05/03/18 ferrous sulfate 325 mg (65 mg iron) tablet (iron) 325 mg PO BID supplement 11/09/20 sertraline 50 mg tablet 50 mg PO DAILY mood 11/09/20 amiodarone 200 mg tablet 100 mg PO DAILY heart 11/19/20 apixaban 5 mg tablet 5 mg PO BID blood thinner 11/19/20 rosuvastatin 10 mg tablet (Crestor) 10 mg PO QHS cholesterol 11/19/20 albuterol sulfate 2.5 mg/3 mL (0.083 %) solution for nebulization 2.5 mg inhalation PRN PRN COPD 11/23/20 ascorbic acid (vitamin C) 500 mg capsule,extended release (Vitamin C) 500 mg PO DAILY supplement 11/23/20 fluticasone propionate 50 mcg/actuation nasal spray,suspension 2 spray intranasal DAILY ALLERGIES #16 grams 04/06/21 glycopyrrolate 9 mcg-formoterol 4.8 mcg HFA aerosol inhaler (Bevespi Aerosphere) 2 puff inhalation BID PRN SOB #3 ea 07/12/21 carvedilol 6.25 mg tablet (Coreg) 6.25 mg PO DAILY heart 11/04/21 gabapentin 100 mg capsule 200 mg PO QHS restless leg 11/04/21 midodrine 10 mg tablet 10 mg PO MOWEFR bp 11/04/21 vericiguat 2.5 mg tablet (Verquvo) 5 mg PO DAILY heart 11/04/21 guaifenesin 600 mg tablet, extended release 12 hr (Mucinex) 1,200 mg PO BID congestion 12/13/21 levothyroxine 50 mcg tablet 50 mcg PO DAILY thyroid 12/13/21 montelukast 10 mg tablet 10 mg PO DAILY congestion 12/13/21 vitamin B complex-vitamin C-folic acid 0.8 mg tablet (Tawanna-Laura) 1 tab PO DAILY supplement 12/13/21 pantoprazole 40 mg tablet,delayed release 40 mg PO BID #60 tabs 12/17/21 sucralfate 1 gram tablet 1 g PO TIDAC #90 tabs 12/17/21 aspirin 81 mg capsule 81 mg PO DAILY heart 02/02/22 misoprostol 200 mcg tablet 200 mcg PO 4X/DAYCM 28 days #112 tabs 02/08/22 pantoprazole 40 mg tablet,delayed release 40 mg PO BID #60 tabs 02/08/22 Hospital Course Operations None Procedures Dialysis and EGD Summary of Care Provided Minutes Spent on Discharge: 48 Hospital Course: Patient is a 76 y/o male with a PMH as outlined who was admitted via the ED on 02/02/2022 o/a of anemia. His bloodwork drawn a few days before showed Hb of 6.5. HE was also having dark stools. Stool for occult blood was positive for blood. He had been admitted in December 2021 for an upper GI bleed and had angio dysplastic lesions as well as a gastric ulcer which was cauterised. He was admitted and managed for acute GI bleed and acute on chronic anemia. Gastroenterology was consulted. He was placed on IV PPI. He had EGD which showed oozing gastric ulcer with visible vessel which was treated with a heater probe and injected and he also had 2 bleeding angiodysplastic lesions in the stomach which were treated with heater probe. He was placed on octreotide drip as well. He was transfused with a total of 2 units of packed red blood cells. Due to persistent anemia he had repeat EGD which showed a large amount of phytobezoar in the stomach with an oozing gastric ulcer with pigmented material which was treated with heater probe. Esophagus and first part of duodenum were normal. He had a third EGD on the day before discharge which showed 4 oozing cratered gastric ulcers with a visible vessel found in the gastric body lesser curvature of the stomach which were treated with argon plasma coagulation. Patient remained stable and was able to tolerate a diet. Hemoglobin remained stable. He was discharged home on p.o. Protonix 40 mg twice daily to use for 6 months as well as p.o. misoprostol 200 mg 4 times daily for 4 weeks. He was to resume his Eliquis on Friday, February 11, 2022. He is to follow-up with his primary care doctor and gastroenterology within 1 to 2 weeks. Patient seen and examined prior to discharge. He had no active complaints and had an uneventful night. He felt well and had been able to tolerate a diet. Review of systems otherwise negative. Labs and vitals reviewed. Medication reviewed and reconciled. Physical Exam Const alert, oriented x3 and no apparent distress General Appearance: cooperative, comfortable, well kempt and well developed Orientation / Consciousness: awake, oriented to person, oriented to place and oriented to time Exam Limitations: no limitations HEENT normocephalic, head/scalp atraumatic, hearing grossly normal bilaterally, moist oral mucous membranes and oropharynx normal Mouth: oral and palatal mucosa normal Eyes PERRL, EOMs intact bilaterally and conjunctivae normal Neck no lymphadenopathy, supple, no JVD, thyroid normal and no carotid bruits General: trachea midline Resp normal respiratory effort, no retractions, no use of accessory muscles and clear to auscultation bilaterally Auscultation: Negative for rales, rhonchi or wheezes Cardio regular rate, regular rhythm, S1 normal heart sound, S2 normal heart sound, no murmurs, no rub and no gallops GI normal to inspection, nondistended, normoactive bowel sounds, soft to palpation, non-tender and non-distended Extremity normal to inspection, full ROM and no clubbing, cyanosis or edema Skin no rashes or lesions noted General Skin Exam: no breakdown Neuro oriented x3, CN's II-XII intact bilaterally, moves all extremities, no focal motor deficits and no sensory deficits noted Sensorium / Orientation: awake and alert Speech: speech normal Motor Exam: strength 5/5 throughout Psych affect normal Weight / BMI Weight Weight: 197 lb 15.602 oz Body Mass Index (BMI) 29.5 ABG / Lab / Microbiology Data Result Diagrams: 02/08/22 06:25 02/08/22 06:25 Laboratory: Laboratory Results - last 24 hr 02/08/22 06:25: WBC 6.5, RBC 2.35 L, Hgb 7.4 L, Hct 23.4 L, MCV 99.6 H, MCH 31.5, MCHC 31.6 L, RDW Std Deviation 64.1 H, RDW Coeff of Nick 17.6 H, Plt Count 155, MPV 8.8, Immature Gran % (Auto) 0.300, Neut % (Auto) 72.6 H, Lymph % (Auto) 6.8 L, [place] % (Auto) 12.9 H, Eos % (Auto) 5.7 H, Baso % (Auto) 1.7 H, Absolute Neuts (auto) 4.7, Absolute Lymphs (auto) 0.44 L, Nucleated RBC % 0, Anisocytosis 1+, Macrocytosis 1+, Target Cells RARE 02/08/22 06:25: Sodium 132 L, Potassium 3.7, Chloride 97 L, Carbon Dioxide 30.0, Anion Gap 5, BUN 25 H, Creatinine 4.10 H, Estim Creat Clear Calc 14.55, Est GFR (MDRD) Af Amer 18 L, Est GFR (MDRD) Non-Af 15 L, BUN/Creatinine Ratio 6.1 L, Glucose 92, Calcium 7.7 L Microbiology: Microbiology 02/02/22 15:14 Stool Stool Occult Blood (ANALIA) - Final Occult Blood Positive D/C Instructions Discharge Diet: Low fat / Low cholesterol Discharge Activity: Return to Normal Activity Weight Bearing Status: Weight bearing as tolerated Call your doctor if you observe: Fever of 101 or Higher, Shortness of breath, Dizziness, Swelling in the ankles and Increased palpitations (irregular heartbeat) Meaningful Use Info Meaningful Use Diagnoses (Choose all that apply): None applicable Discharge Plan Admission Admit Date/Time: 02/02/22 16:58 Primary Reason for Your Visit: acute GI bleed Attending Provider: Olena Matthews Primary Care Provider: Zack Stacy Consulting Providers: Aston Gonzalez Instructions Patient Instructions: GI Bleeding Additional Instructions / Restrictions: hold eliquis till Monday Discharge Orders/Prescriptions Prescriptions: New misoprostol 200 mcg Tablet 200 mcg PO 4X/DAYCM 28 Days Qty: 112 0RF pantoprazole 40 mg tablet,delayed release (DR/EC) 40 mg PO BID Qty: 60 5RF Continued allopurinol 100 mg tablet 100 mg PO DAILY nitroglycerin 0.4 mg tablet, sublingual 0.4 mg SUBLINGUAL Q5-15M PRN (Reason: chest pain) amiodarone 200 mg tablet 100 mg PO DAILY rosuvastatin [Crestor] 10 mg tablet 10 mg PO QHS apixaban 5 mg tablet 5 mg PO BID Hold Instructions: Hold until 12/20/2021 sertraline 50 mg tablet 50 mg PO DAILY ferrous sulfate [iron] 325 mg (65 mg iron) tablet 325 mg PO BID fluticasone propionate 50 mcg/actuation spray,suspension 2 spray INTRANASAL DAILY Qty: 16 5RF carvedilol [Coreg] 6.25 mg tablet 6.25 mg PO DAILY Rx Instructions: must administer with a meal/food gabapentin 100 mg capsule 200 mg PO QHS midodrine 10 mg tablet 10 mg PO MOWEFR Label Comments: per patient he takes before dialysis Rx Instructions: do not give last dose of day after 6PM or within 4 hrs of bedtime Verquvo 2.5 mg tablet 5 mg PO DAILY Label Comments: taking for 2 weeks Rx Instructions: must administer with a meal/food albuterol sulfate 2.5 mg /3 mL (0.083 %) solution for nebulization 2.5 mg inhalation PRN PRN (Reason: COPD) Label Comments: USE 1 VIAL IN NEBULIZER EVERY 4 HOURS NEEDED FOR SHORTNESS OF BREATH OR WHEEZING ascorbic acid (vitamin C) [Vitamin C] 500 mg Capsule, Extended Release 500 mg PO DAILY guaifenesin [Mucinex] 600 mg tablet extended release 12hr 1,200 mg PO BID levothyroxine 50 mcg tablet 50 mcg PO DAILY montelukast 10 mg tablet 10 mg PO DAILY Tawanna-Laura 0.8 mg tablet 1 tab PO DAILY Label Comments: TAKE 1 TABLET BY MOUTH ONCE DAILY pantoprazole 40 mg Tablet,Delayed Release (Dr/Ec) 40 mg PO BID Qty: 60 1RF sucralfate 1 gram Tablet 1 g PO TIDAC Qty: 90 1RF aspirin 81 mg Capsule 81 mg PO DAILY Rx Instructions: needs to be coated Bevespi Aerosphere 9-4.8 mcg HFA aerosol inhaler 2 puff INHALATION BID PRN (Reason: SOB) Qty: 3 3RF Referrals / Follow Up: FriendKhari DO [Med Staff - Active Staff] - Within 2 Weeks (Service Desk Team Lead, got the Doctor's office answer machine. I left a message for the office to call the Pt with a appointment. If you do not hear from the Doctor's office in 24 hrs please call them at [phone].) Zack Stacy MD [Primary Care Provider] - 02/22/22 1:00 pm (Appointment on February 22, 2022 @1:00PM) Disposition Disposition (needs filled in before D/C Order can be placed): Home Health Service Charges/Coding Visit Charges Inpatient E&M: 50643 Disch Hosp
--- NOTE | 2022-02-08 13:45 | PN.RENAL_ITS ---
Subjective Subjective Following for ESRD Sitting in chair. at bedside. Denies any complaints. Hopeful to go home today. Objective Data Objective Data Vital Signs: Vital Signs Temp Pulse Resp BP Pulse Ox O2 Del Method O2 Flow Rate 98.0 F 78 18 95/69 98 Nasal Cannula 3.5 02/08/22 08:45 02/08/22 08:45 02/08/22 08:45 02/08/22 08:45 02/08/22 08:45 02/08/22 08:46 02/08/22 08:46 Oxygen Flow Rate (L/min) 3.5 Oxygen Delivery Method Nasal Cannula Weight: 89.8 kg Body Mass Index (BMI) 29.5 Intake & Output: Intake and Output for Last 24 Hours 02/06/22 02/07/22 02/08/22 23:59 23:59 23:59 Intake Total 628.67 / 628.67 762.00 / 762.00 1038.46 / 1038.46 Output Total 1999 Balance 628.67 / 628.67 -1238.00 / -1238.00 1038.46 / 1038.46 Lab / Micro Data Result Diagrams: 02/08/22 06:25 02/08/22 06:25 Labs: Laboratory Results - last 24 hr 02/08/22 06:25: WBC 6.5, RBC 2.35 L, Hgb 7.4 L, Hct 23.4 L, MCV 99.6 H, MCH 31.5, MCHC 31.6 L, RDW Std Deviation 64.1 H, RDW Coeff of Nick 17.6 H, Plt Count 155, MPV 8.8, Immature Gran % (Auto) 0.300, Neut % (Auto) 72.6 H, Lymph % (Auto) 6.8 L, [place] % (Auto) 12.9 H, Eos % (Auto) 5.7 H, Baso % (Auto) 1.7 H, Absolute Neuts (auto) 4.7, Absolute Lymphs (auto) 0.44 L, Nucleated RBC % 0, Anisocytosis 1+, Macrocytosis 1+, Target Cells RARE 02/08/22 06:25: Sodium 132 L, Potassium 3.7, Chloride 97 L, Carbon Dioxide 30.0, Anion Gap 5, BUN 25 H, Creatinine 4.10 H, Estim Creat Clear Calc 14.55, Est GFR (MDRD) Af Amer 18 L, Est GFR (MDRD) Non-Af 15 L, BUN/Creatinine Ratio 6.1 L, Glucose 92, Calcium 7.7 L Micro: Microbiology 02/02/22 15:14 Stool Stool Occult Blood (ANALIA) - Final Occult Blood Positive Physical Exam Const Constitutional Narrative: General: Alert and oriented. HEENT: Normocephalic, atraumatic.? Neck: Supple, no JVD. Heart: Normal S1, S2.? No rubs, murmurs or gallops. Lungs: Lung sounds clear anteriorly and posteriorly Abdomen: Normal bowel sounds, soft, nontende Extremity: 1+ bilateral lower extremity edema.? Left lower arm AV graft which has good thrill and bruit. Assessment & Plan Assessment/Plan (1) End-stage renal disease on hemodialysis: PLAN: The patient normally dialyzes on MWF schedule at [facility]. No acute indication for PROTECTION MGR today. Plan for next dialysis tomorrow. (2) Hypertension: PLAN: BP is stable, patient is on both carvedilol as well as midodrine predialysis. Recommend holding carvedilol mornings of dialysis (3) Upper GI bleed: PLAN: The patient has angiodysplastic gastric lesion along with gastric ulcers. Lesions were treated with heater probe by GI on 02/03/2022. Further drop in hemoglobin on 02/04/2022. The patient required another EGD 02/04 with further treatment of gastric ulcer with heater probe as per GI. He then had another upper GI 02/07, noted oozing gastric ulcers with visible vessel treated with argon plasma coagulation. At discharge: Protonix 40 mg twice daily for 6 months, misoprostol 200 mcg 4 times daily for 4 weeks Hemoglobin 7.4 today. Received total 2U PRBC. Eliquis stopped (4) Pleural effusion: PLAN: The patient had Pleurx catheter which was draining his pleural effusion in the past. Catheter has been removed since his last admission. He is on nasal cannula oxygen.
[2022-02-08 14:56] VITALS: BP 118/60; PULSE 74; RESP 18; TEMP 36.8; O2SAT 98
== END 2022-02-08 14:59 | disposition home health service (06) | DRG 377 ==
LOC: ED 16:33 → MS3 16:53
PROVIDERS: Anesthesiology; Hospitalist; Internal Medicine Gastroenterology; Admitting Provider Internal Medicine; Emergency Provider Emergency Medicine; PCP Family Medicine; Visit Provider Student in an Organized Health Care Education/Training Program
PROC: 0DJ08ZZ Inspection of Upper Intestinal Tract, Via Natural or Artificial Opening Endoscopic (ICD-10-PCS; CPT 43235; principal; 2022-02-02 17:30)
DX: K31.811 Angiodysplasia of stomach and duodenum with bleeding (principal); N18.6 End stage renal disease; I13.2 Hypertensive heart and chronic kidney disease with heart failure and with stage 5 chronic kidney disease, or end stage renal disease; J90 Pleural effusion, not elsewhere classified; J96.11 Chronic respiratory failure with hypoxia; D63.1 Anemia in chronic kidney disease; Z99.2 Dependence on renal dialysis; I50.9 Heart failure, unspecified; I48.0 Paroxysmal atrial fibrillation; J44.9 Chronic obstructive pulmonary disease, unspecified; I25.10 Atherosclerotic heart disease of native coronary artery without angina pectoris; E78.5 Hyperlipidemia, unspecified; M10.9 Gout, unspecified; E03.9 Hypothyroidism, unspecified; G47.33 Obstructive sleep apnea (adult) (pediatric); D50.0 Iron deficiency anemia secondary to blood loss (chronic); I95.2 Hypotension due to drugs; Z79.01 Long term (current) use of anticoagulants; F32.A Depression, unspecified; Z82.3 Family history of stroke; Z87.891 Personal history of nicotine dependence; K27.4 Chronic or unspecified peptic ulcer, site unspecified, with hemorrhage; T44.7X5A Adverse effect of beta-adrenoreceptor antagonists, initial encounter
CPT/HCPCS: 36415; 71045; 80048; 82274; 82962; 83605; 84484; 85014; 85018; 85025; 85027; 86850; 86900; 86901; 86920; 86922; 90937; 93005; 94640; 94762; 99285; J7030; J7040; J7050; J7120; P9016; A4216; G0257; J2405

== ENCOUNTER 2022-02-11 08:42 | Emergency (ER) | payer MEDICARE, OTHER, SELFPAY ==
[2022-02-11 08:44] VITALS: BP 93/72; PULSE 75; RESP 16; TEMP 37.6; O2SAT 99; BMI 31.1
--- NOTE | 2022-02-11 08:57 | EKG12_ITS ---
Test Reason : WEAKNESS Blood Pressure : / mmHG Vent. Rate : 076 BPM Atrial Rate : 076 BPM P-R Int : 310 ms QRS Dur : 110 ms QT Int : 402 ms P-R-T Axes : 014 -58 092 degrees QTc Int : 452 ms Sinus rhythm with 1st degree A-V block Left axis deviation Low voltage QRS Inferior infarct , age undetermined Cannot rule out Anterior infarct , age undetermined Abnormal ECG Confirmed by JAMMIE GONZALEZ, ELIGIO ([id number]), film and video editor LEONOR WALTER ([id number]) on 02/15/2022 11:39:54 AM Referred By: Confirmed By:ELIGIO AGUDELO MD
--- NOTE | 2022-02-11 08:59 | EDS_ITS ---
HPI History of Present Illness Chief Complaint: Weakness Informant: patient and EMS Narrative Narrative: 76-year-old male presenting to the emergency department via EMS chief complaint of weakness. Patient was admitted into the hospital and discharged last week. He states that he chronically wears oxygen at home. He has a history of COPD CHF upper GI bleed chronic kidney disease on dialysis. He tried to get up to go to dialysis today but his was unable to get him out of the chair and subsequently called the ambulance. He notes his temperature has been around 99. He does note a slight cough. He does not know who his parts representative is. He does not have a list of his medications with him. His notes that when she found him this morning he pulse ox was in the 40s and he was very confused. She wonders if it was the hypoxia that was causing his symptoms. Typically he will wear CPAP and his oxygen at night. He did not have them on. [facility] Medical History Abnormal chest CT Anemia Anxiety Arthritis Back pain BPH (benign prostatic hyperplasia) Congestive heart failure (CHF) COPD (chronic obstructive pulmonary disease) COPD (chronic obstructive pulmonary disease) Coronary artery disease involving coronary bypass graft CPAP (continuous positive airway pressure) dependence Depression Emphysema, unspecified Erectile dysfunction ESRD (end stage renal disease) Former smoker GERD (gastroesophageal reflux disease) Gout High cholesterol History of atrial fibrillation History of edema History of heart attack HLD (hyperlipidemia) Hypertension Lumbar disc disease with radiculopathy Obesity On home oxygen therapy MARCELO (obstructive sleep apnea) Psychosexual dysfunction with inhibited sexual excitement Sleep apnea Home Medications allopurinol 100 mg tablet 100 mg PO DAILY GOUT 05/03/18 [History Last Taken 12/13/21] nitroglycerin 0.4 mg sublingual tablet 0.4 mg sublingual Q5-15M PRN chest pain 05/03/18 [History Last Taken Unknown] ferrous sulfate 325 mg (65 mg iron) tablet (iron) 325 mg PO BID supplement 11/09/20 [History Last Taken 12/13/21] sertraline 50 mg tablet 50 mg PO DAILY mood 11/09/20 [History Last Taken 12/13/21] amiodarone 200 mg tablet 100 mg PO DAILY heart 11/19/20 [History Last Taken 12/13/21] apixaban 5 mg tablet 5 mg PO BID blood thinner 11/19/20 [History Last Taken 12/13/21] rosuvastatin 10 mg tablet (Crestor) 10 mg PO QHS cholesterol 11/19/20 [History Last Taken 12/12/21] albuterol sulfate 2.5 mg/3 mL (0.083 %) solution for nebulization 2.5 mg inhalation PRN PRN COPD 11/23/20 [History Last Taken 12/13/21] ascorbic acid (vitamin C) 500 mg capsule,extended release (Vitamin C) 500 mg PO DAILY supplement 11/23/20 [History Last Taken 12/13/21] fluticasone propionate 50 mcg/actuation nasal spray,suspension 2 spray intranasal DAILY ALLERGIES #16 grams 04/06/21 [Rx Last Taken 12/13/21] glycopyrrolate 9 mcg-formoterol 4.8 mcg HFA aerosol inhaler ([employer] Aerosphere) 2 puff inhalation BID PRN SOB #3 ea 07/12/21 [Rx Last Taken 12/12/21] carvedilol 6.25 mg tablet (Coreg) 6.25 mg PO DAILY heart 11/04/21 [History Last Taken 12/13/21] gabapentin 100 mg capsule 200 mg PO QHS restless leg 11/04/21 [History Last Taken 12/12/21] midodrine 10 mg tablet 10 mg PO MOWEFR bp 11/04/21 [History Last Taken 12/13/21] vericiguat 2.5 mg tablet (Verquvo) 5 mg PO DAILY heart 11/04/21 [History Last Taken 12/13/21] guaifenesin 600 mg tablet, extended release 12 hr (Mucinex) 1,200 mg PO BID congestion 12/13/21 [History Last Taken 12/13/21] levothyroxine 50 mcg tablet 50 mcg PO DAILY thyroid 12/13/21 [History Last Taken 12/13/21] montelukast 10 mg tablet 10 mg PO DAILY congestion 12/13/21 [History Last Taken 12/13/21] vitamin B complex-vitamin C-folic acid 0.8 mg tablet (Tawanna-Laura) 1 tab PO DAILY supplement 12/13/21 [History Last Taken 12/12/21] pantoprazole 40 mg tablet,delayed release 40 mg PO BID #60 tabs 12/17/21 [Rx Last Taken Unknown] sucralfate 1 gram tablet 1 g PO TIDAC #90 tabs 12/17/21 [Rx Last Taken Unknown] aspirin 81 mg capsule 81 mg PO DAILY heart 02/02/22 [History Last Taken Unknown] misoprostol 200 mcg tablet 200 mcg PO 4X/DAYCM 28 days #112 tabs 02/08/22 [Rx Last Taken Unknown] pantoprazole 40 mg tablet,delayed release 40 mg PO BID #60 tabs 02/08/22 [Rx Last Taken Unknown] Allergy/AdvReac Type Severity Reaction Status Date / Time Penicillins Allergy Severe Rash, 105 Verified 02/11/22 08:48 temp amlodipine Allergy itching Verified 02/11/22 08:48 and rash prednisone Allergy Other Verified 02/11/22 08:48 aspirin AdvReac Mild rash Verified 02/11/22 08:48 Family History Mother , 84 y.o. Hypertension CVA (cerebral vascular accident) Father , 70 y.o. Heart disease Hodgkin disease Sister , 72 y.o. Heart disease Surgical History H/O left cataract extraction History of cardiac catheterization History of colonoscopy History of coronary artery stent placement History of heart artery stent History of heart surgery History of knee replacement procedure of left knee History of open heart surgery (~08/2020) History of total right knee replacement S/P arteriovenous (AV) fistula repair (~12/2020) Social History household members: spouse housing: house pets and animals: No Smoking Status: Former smoker second hand exposure: No alcohol intake: current alcohol intake frequency: holidays/special occasions only ROS ROS ED ROS Narrative general weakness Constitutional Constitutional ED: Denies chills or weight loss Eyes Eyes: Denies change in vision or diplopia ENT ENT ED: Denies ear pain, rhinorrhea or sore throat Cardiovascular Cardiovascular: Denies chest pain, orthopnea, palpitations or racing heartbeat Respiratory/Chest Respiratory/Chest: Reports cough; Denies dyspnea or orthopnea Gastrointestinal Gastrointestinal: Denies abdominal pain, diarrhea, nausea or vomiting Genitourinary Genitourinary ED: Denies dysuria, hematuria or urinary frequency Musculoskeletal Musculoskeletal: Denies arthralgias or myalgias Integumentary Denies abscess or rash Neurologic Neurologic: Denies headache(s) or weakness Psychiatric Psychiatric: Denies anxiety, depression, suicidal ideation or suicidal thoughts Endocrine Endocrinology: Denies polydipsia, polyphagia or polyuria Allergic/Immunologic Allergic/Immunologic ED: Denies mouth swelling, tongue swelling or urticaria EXAM Physical Exam Const Vital Signs: 02/11/22 08:44 02/11/22 08:48 02/11/22 09:58 Temperature 99.6 F H Temperature Source Oral Pulse Rate 75 74 Respiratory Rate 16 20 H Respiratory Effort Normal Non-Labored Respiratory Pattern Normal Blood Pressure 93/72 97/47 L Blood Pressure Mean 79 63 Pulse Ox 99 100 Oxygen Delivery Method Nasal Cannula Nasal Cannula Oxygen Flow Rate (L/min) 2 3 Positive well nourished and well developed General Appearance ED: well developed HEENT Reports normocephalic, head/scalp atraumatic and moist mucous membranes Eyes PERRL and EOMs intact bilaterally Neck no lymphadenopathy, supple and no JVD Resp normal respiratory effort and clear to auscultation bilaterally Cardio regular rate, regular rhythm and no murmurs GI normal to inspection, nondistended, normoactive bowel sounds and non-tender Palpation: soft Back/Spine no CVA tenderness and normal ROM Extremity normal to inspection General Extremety ED: Negative for edema General Extremity: Negative for edema Neuro oriented x3 and CN's II-XII intact bilaterally Sensorium / Orientation: alert Motor Exam: strength 5/5 throughout Psych mental status grossly normal Mood & Affect: Negative for depressed or tearful Skin no rashes or lesions noted and no wounds MDM MDM MDM Narrative Medical decision making narrative: White count 7.7 hemoglobin is 8.1. Creatinine 5.78 with a potassium of 4.1. Troponin 58. My interpretation of the chest x-ray is mild CHF. The patient remained stable on his home oxygen. He was able to get out of bed and ambulate. At this point I think his difficulty this morning was due to his hypoxia. He will be working with dialysis to see if he can get dialyzed today or tomorrow. Patient to return if worsening or concerns Lab Data Labs: Laboratory Results - last 24 hr 02/11/22 02/11/22 08:54 08:54 WBC 7.7 RBC 2.68 L Hgb 8.1 L Hct 27.1 L MCV 101.1 H MCH 30.2 MCHC 29.9 L D RDW Std Deviation 66.2 H RDW Coeff of Nick 17.8 H Plt Count 236 MPV 9.0 Immature Gran % (Auto) 0.500 Neut % (Auto) 75.3 H Lymph % (Auto) 5.3 L [place] % (Auto) 14.7 H Eos % (Auto) 3.2 Baso % (Auto) 1.0 Absolute Neuts (auto) 5.8 Absolute Lymphs (auto) 0.41 L Nucleated RBC % 0 Hypochromasia 1+ Anisocytosis 1+ Sodium 135 L Potassium 4.1 Chloride 95 L Carbon Dioxide 32.0 Anion Gap 8 BUN 31 H Creatinine 5.78 H Estim Creat Clear Calc 10.32 Est GFR (MDRD) Af Amer 12 L Est GFR (MDRD) Non-Af 10 L BUN/Creatinine Ratio 5.4 L Glucose 115 H Calcium 8.1 L Total Bilirubin 0.70 AST 46 H ALT 35 Alkaline Phosphatase 98 Troponin I High Sens 58 Total Protein 6.6 Albumin 2.6 L Globulin 4.0 Albumin/Globulin Ratio 0.6 L Radiography Diagnostic Testing: Clinical Impression(s) from Imaging Studies Chest X-Ray 02/11/22 09:05 IMPRESSION: Cardiomegaly and CHF. Blunting of both costophrenic angles. Electronically Signed: Parminder Benton MD at 9:31 EST , EKG Initial EKG: Attestation: I personally reviewed and interpreted this EKG as follows: Comments: Sinus rhythm with a first-degree AV block at a ventricular rate of 76 bpm Discharge Plan Triage Chief Complaint: Weakness ED Provider: Kai Chatterjee Dx/Rx/DC Orders Clinical Impression: Weakness, Stage 3 severe COPD by GOLD classification, Acute on chronic systolic CHF (congestive heart failure), Chronic kidney disease, stage 3, Acute and chronic respiratory failure with hypoxia Instructions: COPD Caregivers Prescriptions: No Action allopurinol 100 mg tablet 100 mg PO DAILY nitroglycerin 0.4 mg tablet, sublingual 0.4 mg SUBLINGUAL Q5-15M PRN (Reason: chest pain) amiodarone 200 mg tablet 100 mg PO DAILY rosuvastatin [Crestor] 10 mg tablet 10 mg PO QHS apixaban 5 mg tablet 5 mg PO BID Hold Instructions: Hold until 12/20/2021 sertraline 50 mg tablet 50 mg PO DAILY ferrous sulfate [iron] 325 mg (65 mg iron) tablet 325 mg PO BID fluticasone propionate 50 mcg/actuation spray,suspension 2 spray INTRANASAL DAILY Qty: 16 5RF carvedilol [Coreg] 6.25 mg tablet 6.25 mg PO DAILY Rx Instructions: must administer with a meal/food gabapentin 100 mg capsule 200 mg PO QHS midodrine 10 mg tablet 10 mg PO MOWEFR Label Comments: per patient he takes before dialysis Rx Instructions: do not give last dose of day after 6PM or within 4 hrs of bedtime Verquvo 2.5 mg tablet 5 mg PO DAILY Label Comments: taking for 2 weeks Rx Instructions: must administer with a meal/food albuterol sulfate 2.5 mg /3 mL (0.083 %) solution for nebulization 2.5 mg inhalation PRN PRN (Reason: COPD) Label Comments: USE 1 VIAL IN NEBULIZER EVERY 4 HOURS NEEDED FOR SHORTNESS OF BREATH OR WHEEZING ascorbic acid (vitamin C) [Vitamin C] 500 mg Capsule, Extended Release 500 mg PO DAILY guaifenesin [Mucinex] 600 mg tablet extended release 12hr 1,200 mg PO BID levothyroxine 50 mcg tablet 50 mcg PO DAILY montelukast 10 mg tablet 10 mg PO DAILY Tawanna-Laura 0.8 mg tablet 1 tab PO DAILY Label Comments: TAKE 1 TABLET BY MOUTH ONCE DAILY pantoprazole 40 mg Tablet,Delayed Release (Dr/Ec) 40 mg PO BID Qty: 60 1RF sucralfate 1 gram Tablet 1 g PO TIDAC Qty: 90 1RF aspirin 81 mg Capsule 81 mg PO DAILY Rx Instructions: needs to be coated misoprostol 200 mcg Tablet 200 mcg PO 4X/DAYCM 28 Days Qty: 112 0RF pantoprazole 40 mg tablet,delayed release (DR/EC) 40 mg PO BID Qty: 60 5RF Bevespi Aerosphere 9-4.8 mcg HFA aerosol inhaler 2 puff INHALATION BID PRN (Reason: SOB) Qty: 3 3RF Primary Care Provider: Zack Stacy Referrals: Zack Stacy MD [Primary Care Provider] - As Needed Disposition Disposition: Home, Self Care
--- NOTE | 2022-02-11 09:05 | RAD_ITS ---
STUDY: X-RAY CHEST REASON FOR EXAM: Male, 76 years old. COPD. Dyspnea. TECHNIQUE: Single AP portable view of the chest. COMPARISON: Comparison is made with prior study dated 02/04/2022. FINDINGS: EKG electrodes are seen. There is evidence of vascular congestion and CHF. Blunting of both posterior triangles. Sternal cerclage wires and vascular clips are present from a prior sternotomy and coronary artery bypass graft procedure (CABG). Normal mediastinum and isaura. Normal visualized pulmonary arteries. There is atherosclerotic calcification of the aortic arch with tortuosity. There are diffuse degenerative changes of the visualized thoracic spine. Normal visualized ribs, clavicles, and shoulders. There is no demonstrated abnormality of the visualized soft tissue structures of the upper abdomen. RAD/Chest 1 View (Portable) IMPRESSION: Cardiomegaly and CHF. Blunting of both costophrenic angles. Electronically Signed: Parminder Benton MD at 9:31 EST ,
[2022-02-11 09:10] LABS: Absolute Lymphocyte Count 0.41 X10^3/uL (0.83-4.51); Absolute Neutrophil Count 5.8 X10^3/uL (2.0-7.7); Basophil# 0.08 X10^3/uL; Eosinophil# 0.25 X10^3/uL; Eosinophils% 3.2 % (0-5); Hematocrit 27.1 % (40-54); Hemoglobin 8.1 g/dL (13.0-16.5); Lymphocyte # 0.41 X10^3/ul (0.83-4.51); Lymphocyte % 5.3 % (19-41); Mean Corp Hgb Conc 29.9 g/dL (32-36); Mean Corpuscular Hgb 30.2 pg (27.0-32.0); Mean Corpuscular Volume 101.1 fL (80-94); Monocyte# 1.13 X10^3/uL; Monocyte% 14.7 % (0-10); NRBC Flagged by Analyzer 0 % (0-5); Neutrophil # 5.79 X10^3/uL (2.7-7.7); Neutrophil % 75.3 % (47-70); POSITIVE DIFFERENTIAL YES; POSITIVE MORPHOLOGY YES; Platelet Count 236 K/mm3 (150-450); RBC Distribution Width CV 17.8 % (11.6-14.6); RBC Distribution Width SD 66.2 fl (35.1-43.9); Red Blood Count 2.68 M/mm3 (4.6-6.2); White Blood Count 7.7 K/mm3 (4.4-11.0)
[2022-02-11 09:12] LABS: Differential Indicated SCAN CRITERIA MET
[2022-02-11 09:33] LABS: ALB/GLOB Ratio 0.6 RATIO (0.9-2.4); AST(SGOT) 46 U/L (15-37); Alanine Aminotransfer ALT/SGPT 35 U/L (16-61); Albumin, Serum 2.6 g/dL (3.2-5.0); Alkaline Phosphatase 98 U/L (45-117); Anion Gap 8 (5-15); Anisocytosis 1+; BUN 31 mg/dL (7-18); BUN/Creat Ratio 5.4 RATIO (10-20); Calcium,Total 8.1 mg/dL (8.5-10.1); Chloride 95 mmol/L (98-107); Creatinine, Serum 5.78 mg/dL (0.70-1.30); EST Glomerular Filtration Rate 10 mL/min (>60); Est Glom Filt Rate - Afr Amer 12 mL/min (>60); Estimated Creatinine Clearance 10.32 ml/min; Glucose 115 mg/dL (74-106); Potassium 4.1 mmol/L (3.5-5.1); Protein, Total 6.6 g/dL (6.4-8.2); Sodium Level 135 mmol/L (136-145); Troponin-I HS 58 pg/mL (3.0-78.0)
[2022-02-11 09:34] LABS: Hypochromasia 1+
[2022-02-11 09:58] VITALS: BP 97/47; PULSE 74; RESP 20; O2SAT 100
[2022-02-11 11:01] VITALS: PULSE 91; RESP 18; O2SAT 97
== END 2022-02-11 11:01 | disposition home or self-care (01) ==
PROVIDERS: Emergency Provider Emergency Medicine; PCP Family Medicine; Visit Provider Emergency Medicine
DX: R53.1 Weakness (principal); I13.2 Hypertensive heart and chronic kidney disease with heart failure and with stage 5 chronic kidney disease, or end stage renal disease; Z99.2 Dependence on renal dialysis; J43.9 Emphysema, unspecified; I50.23 Acute on chronic systolic (congestive) heart failure; N18.4 Chronic kidney disease, stage 4 (severe); J96.21 Acute and chronic respiratory failure with hypoxia; E78.5 Hyperlipidemia, unspecified; R41.0 Disorientation, unspecified; E78.00 Pure hypercholesterolemia, unspecified; I25.10 Atherosclerotic heart disease of native coronary artery without angina pectoris; Z87.891 Personal history of nicotine dependence; G47.33 Obstructive sleep apnea (adult) (pediatric)
CPT/HCPCS: 71045; 80053; 84484; 85025; 87428; 93005; 96360; 99285; J7040; A4216

== ENCOUNTER → 2022-03-01 | Outpatient (CLI) | payer MEDICARE, OTHER, SELFPAY ==
[2022-03-03 17:14] LABS: Gastrin, Serum 447 pg/mL (0-115)
== END | disposition home or self-care (01) ==
PROVIDERS: PCP Family Medicine; Referring Provider Nurse Practitioner Adult Health; Visit Provider Nurse Practitioner Adult Health
DX: K25.9 Gastric ulcer, unspecified as acute or chronic, without hemorrhage or perforation (principal)
CPT/HCPCS: 36415; 82941

== ENCOUNTER 2022-03-18 16:55 | Inpatient (IN) | payer MEDICARE, OTHER, SELFPAY ==
[2022-03-18 16:56] VITALS: BP 116/78; PULSE 89; RESP 16; TEMP 36.6; O2SAT 100; BMI 29.7
[2022-03-18 18:08] LABS: Absolute Lymphocyte Count 0.46 X10^3/uL (0.83-4.51); Absolute Neutrophil Count 5.1 X10^3/uL (2.0-7.7); Basophil# 0.08 X10^3/uL; Basophil% 1.1 % (0-1); Eosinophil# 0.56 X10^3/uL; Hematocrit 25.3 % (40-54); Hemoglobin 7.8 g/dL (13.0-16.5); Lymphocyte # 0.46 X10^3/ul (0.83-4.51); Lymphocyte % 6.6 % (19-41); Mean Corp Hgb Conc 30.8 g/dL (32-36); Mean Corpuscular Hgb 31.2 pg (27.0-32.0); Mean Corpuscular Volume 101.2 fL (80-94); Mean Platelet Vol. 8.6 fl (6.2-12.0); Monocyte# 0.73 X10^3/uL; Monocyte% 10.4 % (0-10); NRBC Flagged by Analyzer 0 % (0-5); Neutrophil # 5.14 X10^3/uL (2.7-7.7); Neutrophil % 73.6 % (47-70); POSITIVE DIFFERENTIAL YES; POSITIVE MORPHOLOGY YES; Platelet Count 240 K/mm3 (150-450); RBC Distribution Width CV 18.8 % (11.6-14.6)
[2022-03-18 18:33] LABS: Differential Indicated SCAN CRITERIA MET
[2022-03-18 18:34] LABS: Anisocytosis 1+; Hypochromasia 1+; Macrocytosis 1+; Platelet Estimate ADEQUATE (ADEQ); Red Cell Morphology N CHROM NORMAL (NORM C&C)
[2022-03-18 18:45] LABS: Anion Gap 2 (5-15); BUN 9 mg/dL (7-18); BUN/Creat Ratio 4.3 RATIO (10-20); Calcium,Total 8.3 mg/dL (8.5-10.1); Chloride 98 mmol/L (98-107); Creatinine, Serum 2.11 mg/dL (0.70-1.30); EST Glomerular Filtration Rate 33 mL/min (>60); Est Glom Filt Rate - Afr Amer 40 mL/min (>60); Estimated Creatinine Clearance 28.28 ml/min; Glucose 120 mg/dL (74-106); Potassium 3.2 mmol/L (3.5-5.1); Sodium Level 138 mmol/L (136-145)
--- NOTE | 2022-03-18 20:56 | EDS_ITS ---
HPI History of Present Illness Chief Complaint: Abn Labs Informant: patient and spouse/S.O. Narrative Narrative: Patient presents with referral from Dr. Mohr for anemia GI bleed on Eliquis with planned admission for colonoscopy and treatment. This patient has had history of GI bleeds. He has had transfusions in the past. He also has renal failure and is on dialysis. He has been feeling weak with poor energy. He does get dyspnea on exertion. His hemoglobins have been up and down. They were dropping again as an outpatient. He had the camera endoscopy just over the past week. Images were reviewed today that showed an area of bleeding in the colon that was amenable to colonoscopy and treatment. I got independent discussion with Dolly who is Dr. Mohr's orthopedic assistant in the office. We talked about his history meds and the plan. Patient denies any abdominal pain. He denies fevers chills. He has a history of heart disease with bypass surgery but is not having chest pain. He is on Eliquis due to history of atrial fibrillation. He last took Eliquis at about 130 today. He does have intermittent dark bowel movements. No gross bleeding. His dialysis was this morning and it went without difficulties. [facility] Medical History Abnormal chest CT Anemia Anxiety Arthritis Back pain BPH (benign prostatic hyperplasia) Congestive heart failure (CHF) COPD (chronic obstructive pulmonary disease) COPD (chronic obstructive pulmonary disease) Coronary artery disease involving coronary bypass graft Coronary atherosclerosis of [place] coronary artery CPAP (continuous positive airway pressure) dependence Depression Emphysema, unspecified End-stage renal disease on hemodialysis Erectile dysfunction ESRD (end stage renal disease) Former smoker GERD (gastroesophageal reflux disease) Gout High cholesterol History of atrial fibrillation History of edema History of heart attack HLD (hyperlipidemia) Hypertension Lumbar disc disease with radiculopathy Obesity On home oxygen therapy MARCELO (obstructive sleep apnea) Pleural effusion Psychosexual dysfunction with inhibited sexual excitement Sleep apnea Symptomatic anemia Home Medications allopurinol 100 mg tablet 100 mg PO DAILY GOUT 05/03/18 [History Last Taken 12/13/21] nitroglycerin 0.4 mg sublingual tablet 0.4 mg sublingual Q5-15M PRN chest pain 05/03/18 [History Last Taken Unknown] ferrous sulfate 325 mg (65 mg iron) tablet (iron) 325 mg PO BID supplement 11/09/20 [History Last Taken 12/13/21] sertraline 50 mg tablet 50 mg PO DAILY mood 11/09/20 [History Last Taken 12/13/21] amiodarone 200 mg tablet 100 mg PO DAILY heart 11/19/20 [History Last Taken 12/13/21] apixaban 5 mg tablet 5 mg PO BID blood thinner 11/19/20 [History Last Taken 12/13/21] rosuvastatin 10 mg tablet (Crestor) 10 mg PO QHS cholesterol 11/19/20 [History Last Taken 12/12/21] albuterol sulfate 2.5 mg/3 mL (0.083 %) solution for nebulization 2.5 mg inhalation PRN PRN COPD 11/23/20 [History Last Taken 12/13/21] ascorbic acid (vitamin C) 500 mg capsule,extended release (Vitamin C) 500 mg PO DAILY supplement 11/23/20 [History Last Taken 12/13/21] fluticasone propionate 50 mcg/actuation nasal spray,suspension 2 spray intranasal DAILY ALLERGIES #16 grams 04/06/21 [Rx Last Taken 12/13/21] glycopyrrolate 9 mcg-formoterol 4.8 mcg HFA aerosol inhaler (Bevespi Aerosphere) 2 puff inhalation BID PRN SOB #3 ea 07/12/21 [Rx Last Taken 12/12/21] carvedilol 6.25 mg tablet (Coreg) 6.25 mg PO DAILY heart 11/04/21 [History Last Taken 12/13/21] gabapentin 100 mg capsule 200 mg PO QHS restless leg 11/04/21 [History Last Taken 12/12/21] midodrine 10 mg tablet 10 mg PO MOWEFR bp 11/04/21 [History Last Taken 12/13/21] vericiguat 2.5 mg tablet (Verquvo) 5 mg PO DAILY heart 11/04/21 [History Last Taken 12/13/21] guaifenesin 600 mg tablet, extended release 12 hr (Mucinex) 1,200 mg PO BID congestion 12/13/21 [History Last Taken 12/13/21] levothyroxine 50 mcg tablet 50 mcg PO DAILY thyroid 12/13/21 [History Last Taken 12/13/21] montelukast 10 mg tablet 10 mg PO DAILY congestion 12/13/21 [History Last Taken 12/13/21] vitamin B complex-vitamin C-folic acid 0.8 mg tablet (Tawanna-Laura) 1 tab PO DAILY supplement 12/13/21 [History Last Taken 12/12/21] aspirin 81 mg capsule 81 mg PO DAILY heart 02/02/22 [History Last Taken Unknown] misoprostol 200 mcg tablet 200 mcg PO 4X/DAYCM 28 days #112 tabs 02/08/22 [Rx Last Taken Unknown] pantoprazole 40 mg tablet,delayed release 40 mg PO BID #60 tabs 02/08/22 [Rx Last Taken Unknown] Allergy/AdvReac Type Severity Reaction Status Date / Time Penicillins Allergy Severe Rash, 105 Verified 03/18/22 16:56 temp amlodipine Allergy itching Verified 03/18/22 16:56 and rash prednisone Allergy Other Verified 03/18/22 16:56 aspirin AdvReac Mild rash Verified 03/18/22 16:56 Family History Mother , 84 y.o. Hypertension CVA (cerebral vascular accident) Father , 70 y.o. Heart disease Hodgkin disease Sister , 72 y.o. Heart disease Surgical History H/O left cataract extraction History of cardiac catheterization History of colonoscopy History of coronary artery stent placement History of heart artery stent History of heart surgery History of knee replacement procedure of left knee History of open heart surgery (~08/2020) History of total right knee replacement S/P arteriovenous (AV) fistula repair (~12/2020) Social History household members: spouse housing: house pets and animals: No Smoking Status: Former smoker second hand exposure: No alcohol intake: current alcohol intake frequency: holidays/special occasions only ROS ROS ED ROS Narrative Review of systems is negative other than pertinent positives in the history of present illness. EXAM Physical Exam Narrative Exam Narrative: Patient is awake alert. He does look pale when I walk in the room. But he is in no acute distress. No acute dyspnea. Lips and conjunctive a do look pale. Mucous membranes are still moist. There is no JVD noted. Heart does sound to be regular at this time. I do not hear a murmur. His lungs sound clear. He has a well-healed median sternotomy. Abdomen is soft and nontender. No masses felt. Patient has a fistula in the left forearm with good thrill. He has peripheral edema which is not new or different. He has no CVA tenderness. Skin shows no rash but does show pallor. No petechiae. Patient is awake alert and appropriate. No focal neurologic deficits. Const Vital Signs: 03/18/22 16:56 Temperature 97.8 F Temperature Source Temporal Pulse Rate 89 Respiratory Rate 16 Blood Pressure 116/78 Blood Pressure Mean 90 Pulse Ox 100 Oxygen Delivery Method Room Air MDM MDM MDM Narrative Medical decision making narrative: Patient CBC showed normal white count and platelets. However, hemoglobin is low at 7.8. This is also symptomatic with the patient. Electrolytes show potassium low at 3.2 but he did just finished dialysis a matter of hours ago. Creatinine is up consistent with his history. Glucose is just 120. I did review the patient's prior blood work that shows he has been up over 8 but he has been low for a while. But he is getting more symptomatic. He also has active bleeding in the colon by his history. Vital history was obtained through an independent historian at his GI physician's office supporting the active bleeding in his colon. They recommend blood work but no CT was needed. Their plan was to have the patient admitted so they can follow his hemoglobins, he may end up getting transfusion because of his symptomatic anemia. They plan colonoscopy. I will discuss the case with hospitalist. Lab Data Attestation: I reviewed the patient's lab results. Labs: Laboratory Results - last 24 hr 03/18/22 03/18/22 17:50 17:50 WBC 7.0 RBC 2.50 L Hgb 7.8 L Hct 25.3 L MCV 101.2 H MCH 31.2 MCHC 30.8 L RDW Std Deviation 69.0 H RDW Coeff of Nick 18.8 H Plt Count 240 MPV 8.6 Immature Gran % (Auto) 0.300 Neut % (Auto) 73.6 H Lymph % (Auto) 6.6 L [place] % (Auto) 10.4 H Eos % (Auto) 8.0 H Baso % (Auto) 1.1 H Absolute Neuts (auto) 5.1 Absolute Lymphs (auto) 0.46 L Nucleated RBC % 0 Differential Comment SEE COMMENT Platelet Estimate ADEQUATE RBC Morphology N CHROM Hypochromasia 1+ Anisocytosis 1+ Macrocytosis 1+ Sodium 138 Potassium 3.2 L Chloride 98 Carbon Dioxide 38.0 H Anion Gap 2 L BUN 9 Creatinine 2.11 H Estim Creat Clear Calc 28.28 Est GFR (MDRD) Af Amer 40 L Est GFR (MDRD) Non-Af 33 L BUN/Creatinine Ratio 4.3 L Glucose 120 H Calcium 8.3 L Discharge Plan Dx/Rx/DC Orders Clinical Impression: Symptomatic anemia, Colonic hemorrhage, Medication induced coagulopathy, Chronic kidney disease, Coronary artery disease Disposition Disposition: Acute Care Hospital [facility]
--- NOTE | 2022-03-18 21:50 | HP.PCM.HOS_ITS ---
HPI - General General Date of Admission: 03/18/22 Date of Service: 03/18/22 Chief Complaint: Abnormal capsule endoscopy HPI Narrative ANGIE SINGH, is a 76 M with a significant history of CAD status post stent; end-stage disease on dialysis (Monday and Monday); and paroxysmal A. fib on Eliquis who presents to the emergency department because of bleeding found on capsule endoscopy. Patient was sent in by FARIDA Conway for a colonoscopy due to difficulty in getting that scheduled immediately outpatient. Patient reports maroon-colored stool for the past 2 weeks. Per patient they have also been blood noticed on patient's underwear. Patient has shortness of breath going on for several months and has not changed. Of note patient is on home oxygen 3.5 L all the time. Patient's last dialysis was on the same day of presentation and he took his Eliquis after dialysis. [facility] Medical History Abnormal chest CT Anemia Anxiety Arthritis Back pain BPH (benign prostatic hyperplasia) Congestive heart failure (CHF) COPD (chronic obstructive pulmonary disease) COPD (chronic obstructive pulmonary disease) Coronary artery disease involving coronary bypass graft Coronary atherosclerosis of [place] coronary artery CPAP (continuous positive airway pressure) dependence Depression Emphysema, unspecified End-stage renal disease on hemodialysis Erectile dysfunction ESRD (end stage renal disease) Former smoker GERD (gastroesophageal reflux disease) Gout High cholesterol History of atrial fibrillation History of edema History of heart attack HLD (hyperlipidemia) Hypertension Lumbar disc disease with radiculopathy Obesity On home oxygen therapy MARCELO (obstructive sleep apnea) Pleural effusion Psychosexual dysfunction with inhibited sexual excitement Sleep apnea Symptomatic anemia Home Medications allopurinol 100 mg tablet 100 mg PO DAILY GOUT 05/03/18 [History Last Taken 12/13/21] nitroglycerin 0.4 mg sublingual tablet 0.4 mg sublingual Q5-15M PRN chest pain 0 05/03/18 [History Last Taken Unknown] ferrous sulfate 325 mg (65 mg iron) tablet (iron) 325 mg PO BID supplement 11/09/20 [History Last Taken 12/13/21] sertraline 50 mg tablet 50 mg PO DAILY mood 11/09/20 [History Last Taken 12/13/21] amiodarone 200 mg tablet 100 mg PO DAILY heart 11/19/20 [History Last Taken 12/13/21] apixaban 5 mg tablet 5 mg PO BID blood thinner 11/19/20 [History Last Taken 06/01] rosuvastatin 10 mg tablet (Crestor) 10 mg PO QHS cholesterol 11/19/20 [History Last Taken 12/12/21] albuterol sulfate 2.5 mg/3 mL (0.083 %) solution for nebulization 2.5 mg inhalation PRN PRN COPD 11/23/20 [History Last Taken 12/13/21] ascorbic acid (vitamin C) 500 mg capsule,extended release (Vitamin C) 500 mg PO DAILY supplement 11/23/20 [History Last Taken 12/13/21] fluticasone propionate 50 mcg/actuation nasal spray,suspension 2 spray intranasal DAILY ALLERGIES #16 grams 04/06/21 [Rx Last Taken 12/13/21] glycopyrrolate 9 mcg-formoterol 4.8 mcg HFA aerosol inhaler (Bevespi Aerosphere) 2 puff inhalation BID PRN SOB #3 ea 07/12/21 [Rx Last Taken 12/12/21] carvedilol 6.25 mg tablet (Coreg) 6.25 mg PO DAILY heart 11/04/21 [History Last Taken 12/13/21] gabapentin 100 mg capsule 200 mg PO QHS restless leg 11/04/21 [History Last Taken 12/12/21] midodrine 10 mg tablet 10 mg PO MOWEFR bp 11/04/21 [History Last Taken 12/13/21] vericiguat 2.5 mg tablet (Verquvo) 5 mg PO DAILY heart 11/04/21 [History Last Taken 12/13/21] guaifenesin 600 mg tablet, extended release 12 hr (Mucinex) 1,200 mg PO BID congestion 12/13/21 [History Last Taken 12/13/21] levothyroxine 50 mcg tablet 50 mcg PO DAILY thyroid 12/13/21 [History Last Taken 12/13/21] montelukast 10 mg tablet 10 mg PO DAILY congestion 12/13/21 [History Last Taken 12/13/21] vitamin B complex-vitamin C-folic acid 0.8 mg tablet (Tawanna-Laura) 1 tab PO DAILY supplement 12/13/21 [History Last Taken 12/12/21] aspirin 81 mg capsule 81 mg PO DAILY heart 02/02/22 [History Last Taken Unknown] misoprostol 200 mcg tablet 200 mcg PO 4X/DAYCM 28 days #112 tabs 02/08/22 [Rx Last Taken Unknown] pantoprazole 40 mg tablet,delayed release 40 mg PO BID #60 tabs 02/08/22 [Rx Last Taken Unknown] Allergy/AdvReac Type Severity Reaction Status Date / Time Penicillins Allergy Severe Rash, 105 Verified 03/18/22 16:56 temp amlodipine Allergy itching Verified 03/18/22 16:56 and rash prednisone Allergy Other Verified 03/18/22 16:56 aspirin AdvReac Mild rash Verified 03/18/22 16:56 Family History Mother , 84 y.o. Hypertension CVA (cerebral vascular accident) Father , 70 y.o. Heart disease Hodgkin disease Sister , 72 y.o. Heart disease Surgical History H/O left cataract extraction History of cardiac catheterization History of colonoscopy History of coronary artery stent placement History of heart artery stent History of heart surgery History of knee replacement procedure of left knee History of open heart surgery (~08/2020) History of total right knee replacement S/P arteriovenous (AV) fistula repair (~12/2020) Social History household members: spouse housing: house pets and animals: No Smoking Status: Former smoker second hand exposure: No alcohol intake: current alcohol intake frequency: holidays/special occasions only ROS ROS Narrative Pertinent positives and pertinent negatives as noted in HPI. All other systems were reviewed and are negative Vital Signs Vital Signs Vital Signs: 03/18/22 16:56 Temperature 97.8 F Temperature Source Temporal Pulse Rate 89 Respiratory Rate 16 Blood Pressure 116/78 Blood Pressure Mean 90 Pulse Ox 100 Oxygen Delivery Method Room Air Weight Weight: 86.183 kg Body Mass Index (BMI) 29.7 Physical Exam Narrative Physical exam: General: Well-nourished, well-developed. Head: Normocephalic, atraumatic, no tenderness Eyes: Vision is grossly intact. EOMI ENT, no trauma, moist mucous membranes, no rhinorrhea Neck: Nontender, No thyromegaly. CVS: Regular rate and rhythm. S1-S2 present. No murmur, gallop or rub. Respiratory : clear to auscultation bilaterally, chest wall nontender, no wheezing Abdomen: Soft, nontender, nondistended, normal bowel sounds, no masses : Deferred Back: Nontender, no CVA tenderness Extremities: Nontender full range of motion, no trauma Skin: Normal color, no trauma, abrasions Neuro: Alert, oriented, cranial nerves II through XII grossly intact. Psychiatry: Normal mood. Normal affect. Not depressed. Not anxious. Results Lab / Micro Data Result Diagrams: 03/18/22 17:50 03/18/22 17:50 Labs: Laboratory Results - last 24 hr 03/18/22 17:50: WBC 7.0, RBC 2.50 L, Hgb 7.8 L, Hct 25.3 L, MCV 101.2 H, MCH 31.2, MCHC 30.8 L, RDW Std Deviation 69.0 H, RDW Coeff of Nick 18.8 H, Plt Count 240, MPV 8.6, Immature Gran % (Auto) 0.300, Neut % (Auto) 73.6 H, Lymph % (Auto) 6.6 L, [place] % (Auto) 10.4 H, Eos % (Auto) 8.0 H, Baso % (Auto) 1.1 H, Absolute Neuts (auto) 5.1, Absolute Lymphs (auto) 0.46 L, Nucleated RBC % 0, Differential Comment SEE COMMENT, Platelet Estimate ADEQUATE, RBC Morphology N CHROM, Hypochromasia 1+, Anisocytosis 1+, Macrocytosis 1+ 03/18/22 17:50: Sodium 138, Potassium 3.2 L, Chloride 98, Carbon Dioxide 38.0 H, Anion Gap 2 L, BUN 9, Creatinine 2.11 H, Estim Creat Clear Calc 28.28, Est GFR (MDRD) Af Amer 40 L, Est GFR (MDRD) Non-Af 33 L, BUN/Creatinine Ratio 4.3 L, Glucose 120 H, Calcium 8.3 L Assessment & Plan Assessment/Plan (1) Lower GI bleed: PLAN: Plan Acute blood loss anemia Hemoglobin on presentation was 7.8. Review of labs shows chronic anemia since 2021. Of note in December 2021 his hemoglobin was lowest at 5 and 5.5. Admit to monitored bed on MedSur Trend H&H Hold Eliquis No anticoagulants for DVT prophylaxis Dulcolax and GoLytely ordered. End stage renal disease on dialysis (dialysis Fridays) Last dialysis on 03/18/2022. Trend BMP. Hypokalemia Potassium of 3.2. Replace. Trend. CAD status post stents/Paroxysmal A. fib Hold home antiplatelets. Continue home meds. DVT prophylaxis SCD ordered. Charges/Coding Visit Charges Inpatient E&M: 18822 Init Hosp L2
[2022-03-18 22:00] VITALS: BP 110/74; RESP 18
--- NOTE | 2022-03-18 23:00 | CON.PCM.GI_ITS ---
HPI Consult Data Date of Consult: 03/18/22 HPI Narrative Reason for Consultation: GI bleed HPI Narrative: ANGIE SINGH, is a 76 M who presents as an outpatient after undergoing a capsule endoscopy and bleeding was seen in the colon. He has a past medical history of severe COPD and stage III sometimes on oxygen to keep saturation above 90%, CKD on hemodialysis, CHF, CAD status post non-ST segment elevation NH status post coronary artery bypass. He was admitted 02/02/22 to 02/08/22 for upper GI bleed--during that hospitalization. I treated oozing gastric ulcers with visible vessels as well as angiodysplastic lesions in the stomach. Pt had already been on pantoprazole 40 mg bid and sucralfate starting during his prior hospitalization 12/13/21 to 12/17/21; There were also oozing gastric ulcers then also. After the most recent EGD on 02/07/22 he was prescribed one month of misoprostal 200 mg QID, and pt is to continue BID dosing of PPI for at leasst 6 months. Pt is on ASA 81 mg and apixaban 5 mg BID for atrial fibrillation. He reports he feels pretty well. He reports not having symptoms of the gastric ulcers. No abd pain, no hematemesis. He does occas have sudden nausea and then vomits. Stools are dark which he attributes to PO iron. Hgb is stable, it was 8.1 at dialysis last week, they check it every other week. Hgb was 7.4 when he was discharged from [facility] on 02/08/22. [facility] Medical History (Updated 03/19/22 @ 19:[address] Elke Hewitt MD) Abnormal chest CT Anemia Anxiety Arthritis Back pain BPH (benign prostatic hyperplasia) Congestive heart failure (CHF) COPD (chronic obstructive pulmonary disease) COPD (chronic obstructive pulmonary disease) Coronary artery disease involving coronary bypass graft Coronary atherosclerosis of [place] coronary artery CPAP (continuous positive airway pressure) dependence Depression Emphysema, unspecified End-stage renal disease on hemodialysis Erectile dysfunction ESRD (end stage renal disease) Former smoker GERD (gastroesophageal reflux disease) Gout High cholesterol History of atrial fibrillation History of edema History of heart attack HLD (hyperlipidemia) Hypertension Lumbar disc disease with radiculopathy Obesity On home oxygen therapy MARCELO (obstructive sleep apnea) Pleural effusion Psychosexual dysfunction with inhibited sexual excitement Sleep apnea Symptomatic anemia Home Medications allopurinol 100 mg tablet 100 mg PO DAILY GOUT 05/03/18 [History Last Taken 03/18/22] nitroglycerin 0.4 mg sublingual tablet 0.4 mg sublingual Q5-15M PRN chest pain 05/03/18 [History Last Taken Unknown] ferrous sulfate 325 mg (65 mg iron) tablet (iron) 65 mg PO BID supplement 11/09/20 [History Last Taken 03/18/22] sertraline 50 mg tablet 50 mg PO DAILY mood 11/09/20 [History Last Taken 03/18/22] amiodarone 200 mg tablet 100 mg PO DAILY heart 11/19/20 [History Last Taken 03/18/22] apixaban 5 mg tablet 5 mg PO BID blood thinner 11/19/20 [History Last Taken 03/18/22] rosuvastatin 10 mg tablet (Crestor) 10 mg PO QHS cholesterol 11/19/20 [History Last Taken 03/17/22] albuterol sulfate 2.5 mg/3 mL (0.083 %) solution for nebulization 2.5 mg inhalation 4X/DAY PRN PRN COPD 11/23/20 [History Last Taken 12/13/21] ascorbic acid (vitamin C) 500 mg capsule,extended release (Vitamin C) 500 mg PO DAILY supplement 11/23/20 [History Last Taken 03/18/22] fluticasone propionate 50 mcg/actuation nasal spray,suspension 2 spray intranasal DAILY ALLERGIES #16 grams 04/06/21 [Rx Last Taken 03/18/22] glycopyrrolate 9 mcg-formoterol 4.8 mcg HFA aerosol inhaler (Bevespi Aerosphere) 2 puff inhalation BID PRN SOB #3 ea 07/12/21 [Rx Last Taken 12/12/21] carvedilol 6.25 mg tablet (Coreg) 3.125 mg PO DAILY heart 11/04/21 [History Last Taken 03/18/22] gabapentin 100 mg capsule 200 mg PO QHS restless leg 11/04/21 [History Last Taken 03/17/22] midodrine 10 mg tablet 10 mg PO MOWEFR bp 11/04/21 [History Last Taken 03/18/22] vericiguat 2.5 mg tablet (Verquvo) 5 mg PO DAILY heart 11/04/21 [History Last Taken 12/13/21] guaifenesin 600 mg tablet, extended release 12 hr (Mucinex) 1,200 mg PO BID congestion 12/13/21 [History Last Taken 03/18/22] levothyroxine 50 mcg tablet 50 mcg PO DAILY thyroid 12/13/21 [History Last Taken 03/18/22] montelukast 10 mg tablet 10 mg PO DAILY congestion 12/13/21 [History Last Taken 03/18/22] vitamin B complex-vitamin C-folic acid 0.8 mg tablet (Tawanna-Laura) 1 tab PO DAILY supplement 12/13/21 [History Last Taken 03/18/22] aspirin 81 mg capsule 81 mg PO DAILY heart 02/02/22 [History Last Taken 03/18/22] misoprostol 200 mcg tablet 200 mcg PO 4X/DAYCM Check with primary doctor 03/18/22 [History Last Taken 03/18/22] pantoprazole 40 mg tablet,delayed release 40 mg PO BID GERD 03/18/22 [History Last Taken 03/18/22] Allergy/AdvReac Type Severity Reaction Status Date / Time Penicillins Allergy Severe Rash, 105 Verified 03/18/22 16:56 temp amlodipine Allergy itching Verified 03/18/22 16:56 and rash prednisone Allergy Other Verified 03/18/22 16:56 aspirin AdvReac Mild rash Verified 03/18/22 16:56 Family History Mother , 84 y.o. Hypertension CVA (cerebral vascular accident) Father , 70 y.o. Heart disease Hodgkin disease Sister , 72 y.o. Heart disease Surgical History H/O left cataract extraction History of cardiac catheterization History of colonoscopy History of coronary artery stent placement History of heart artery stent History of heart surgery History of knee replacement procedure of left knee History of open heart surgery (~08/2020) History of total right knee replacement S/P arteriovenous (AV) fistula repair (~12/2020) Social History household members: spouse housing: house pets and animals: No Smoking Status: Former smoker second hand exposure: No alcohol intake: current alcohol intake frequency: holidays/special occasions only ROS ROS Narrative 12/20 ROS was done and is otherwise noncontributory to what is already documented in the HPI. Physical Exam Narrative Constitutional Narrative: General: NAD HEENT: Normocephalic, atraumatic.? PERRLA, EOMI.? Hearing is intact.? Mucous membranes moist without erythema. Neck: Supple, no JVD. Heart: Normal S1, S2.? No rubs, murmurs or gallops. Lungs: Decreased breath sound at bases.? No wheezing. Abdomen: Normal bowel sounds, soft, nontender, no organomegaly, no guarding or rebound. Extremity: There is 2+ lower extremity edema.? There is a left lower arm AV graft which has good thrill and bruit. Musculoskeletal: Full passive range of motion.? There is no joint swelling. Neurological: No focal neurologic deficit. Psychiatric: Normal mood and affect. Skin: No rash, skin is warm and dry. Lab / Micro Data Result Diagrams: 03/20/22 06:20 03/20/22 06:20 Labs: Laboratory Results - last 24 hr 03/19/22 12:00: Hgb 8.0 L, Hct 26.4 L 03/19/22 12:00: Blood Type AB POSITIVE, Antibody Screen NEGATIVE, Crossmatch See Detail 03/20/22 06:20: WBC 5.8, RBC 2.20 L, Hgb 6.8 L, Hct 21.8 L, MCV 99.1 H, MCH 30.9, MCHC 31.2 L, RDW Std Deviation 69.3 H, RDW Coeff of Nick 19.4 H, Plt Count 197, MPV 8.9, Immature Gran % (Auto) 0.700, Neut % (Auto) 63.2, Lymph % (Auto) 12.3 L, [place] % (Auto) 11.3 H, Eos % (Auto) 11.1 H, Baso % (Auto) 1.4 H, Absolute Neuts (auto) 3.7, Absolute Lymphs (auto) 0.72 L, Nucleated RBC % 0, Anisocytosis 3+ 03/20/22 06:20: Sodium 138, Potassium 3.8, Chloride 100, Carbon Dioxide 32.0, Anion Gap 6, BUN 17, Creatinine 3.66 H, Estim Creat Clear Calc 16.30, Est GFR (MDRD) Af Amer 21 L, Est GFR (MDRD) Non-Af 17 L, BUN/Creatinine Ratio 4.6 L, Glucose 79, Calcium 8.0 L, Total Bilirubin 0.50, AST 19, ALT 17, Alkaline Phosphatase 95, Total Protein 5.5 L, Albumin 2.1 L, Globulin 3.4, Albumin/Globulin Ratio 0.6 L Assessment & Plan Assessment/Plan (1) Symptomatic anemia: PLAN: Recommend to hold all blood thinners. He will need to undergo a colonoscopy for evaluation of his lower GI tract. As per his he has not had a colonoscopy in the last 5 years at least. At this time he is not having any signs of GI bleeding. He is not have any chest pain or shortness of breath. He was explained alternatives, risk, benefits including not withstanding bleeding, infection, sepsis, perforation, need for emergent urgent . He will have an ASA of 3. Charges/Coding Visit Charges Inpatient E&M: 29230 Init Hosp L2
[2022-03-18 23:11] VITALS: BP 116/84; PULSE 77; RESP 18; TEMP 36.4; O2SAT 97
[2022-03-18 23:24] VITALS: BMI 29.0
[2022-03-18 23:27] VITALS: BP 108/48; PULSE 70; RESP 18; TEMP 37.3; O2SAT 100
[2022-03-19] MEDS: Bisacodyl 5 MG Tablet 20 MG PO (00:11)
[2022-03-19] MEDS: Potassium Chloride Oral Tablet 20 MEQ PO (00:11)
[2022-03-19] MEDS: Electrolyte Solution/Peg's 4000 ML 2000 ML PO (00:12)
[2022-03-19 00:56] LABS: Hematocrit 26.5 % (40-54); Hemoglobin 7.7 g/dL (13.0-16.5)
--- NOTE | 2022-03-19 06:00 | EKG12_ITS ---
Test Reason : AM EKG Blood Pressure : / mmHG Vent. Rate : 077 BPM Atrial Rate : 077 BPM P-R Int : 296 ms QRS Dur : 102 ms QT Int : 398 ms P-R-T Axes : 000 -55 084 degrees QTc Int : 450 ms Sinus rhythm with 1st degree A-V block Left axis deviation Inferior infarct (cited on or before 11-FEB-2022) Abnormal ECG When compared with ECG of 11-FEB-2022 09:19, ST elevation now present in Lateral leads Confirmed by JAMMIE GONZALEZ, ELIGIO ([id number]), city editor LEONOR WALTER ([id number]) on 03/22/2022 8:43:51 AM Referred By: CLARIBEL Confirmed By:ELIGIO AGUDELO MD
[2022-03-19 07:18] LABS: Hematocrit 24.7 % (40-54)
[2022-03-19 07:37] LABS: Anion Gap 8 (5-15); BUN 12 mg/dL (7-18); BUN/Creat Ratio 4.5 RATIO (10-20); Calcium,Total 8.1 mg/dL (8.5-10.1); Chloride 100 mmol/L (98-107); Creatinine, Serum 2.69 mg/dL (0.70-1.30); EST Glomerular Filtration Rate 25 mL/min (>60); Est Glom Filt Rate - Afr Amer 30 mL/min (>60); Estimated Creatinine Clearance 22.18 ml/min; Glucose 86 mg/dL (74-106); Potassium 3.2 mmol/L (3.5-5.1); Sodium Level 140 mmol/L (136-145)
[2022-03-19 08:00] VITALS: BP 118/52; PULSE 79; RESP 18; TEMP 36.5; O2SAT 97
[2022-03-19 08:33] LABS: International Normalized Ratio 1.7; Prothrombin Time (Protime)PT. 19.5 SECONDS (11.7-14.9)
[2022-03-19 08:34] LABS: Partial Thromboplast Time 45.5 Seconds (24.1-36.2)
--- NOTE | 2022-03-19 11:52 | PCM.PROGNOTE ---
Subjective Subjective Patient is doing well this morning. He did have some black stools with his prep. He completed about 2000 mL of his prep but he still is passing some brown stools. Objective Data Objective Data Vital Signs: Vital Signs Temp Pulse Resp BP Pulse Ox O2 Del Method O2 Flow Rate 97.5 F L 72 18 99/50 L 94 Nasal Cannula 4 03/20/22 10:05 03/20/22 10:05 03/20/22 10:05 03/20/22 10:05 03/20/22 10:05 03/20/22 10:05 03/20/22 10:05 Oxygen Flow Rate (L/min) 4 Oxygen Delivery Method Nasal Cannula Weight: 185 lb 12.8 oz Body Mass Index (BMI) 29.0 Intake & Output: Intake and Output for Last 24 Hours 03/18/22 03/19/22 03/20/22 23:59 23:59 23:59 Intake Total 1200 / 1700 500 / 500 Output Total 0 / 0 Balance 1200 / 1700 500 / 500 Lab / Micro Data Result Diagrams: 03/20/22 06:20 03/20/22 06:20 Labs: Laboratory Results - last 24 hr 03/19/22 12:00: Hgb 8.0 L, Hct 26.4 L 03/19/22 12:00: Blood Type AB POSITIVE, Antibody Screen NEGATIVE, Crossmatch See Detail 03/20/22 06:20: WBC 5.8, RBC 2.20 L, Hgb 6.8 L, Hct 21.8 L, MCV 99.1 H, MCH 30.9, MCHC 31.2 L, RDW Std Deviation 69.3 H, RDW Coeff of Nick 19.4 H, Plt Count 197, MPV 8.9, Immature Gran % (Auto) 0.700, Neut % (Auto) 63.2, Lymph % (Auto) 12.3 L, [place] % (Auto) 11.3 H, Eos % (Auto) 11.1 H, Baso % (Auto) 1.4 H, Absolute Neuts (auto) 3.7, Absolute Lymphs (auto) 0.72 L, Nucleated RBC % 0, Anisocytosis 3+ 03/20/22 06:20: Sodium 138, Potassium 3.8, Chloride 100, Carbon Dioxide 32.0, Anion Gap 6, BUN 17, Creatinine 3.66 H, Estim Creat Clear Calc 16.30, Est GFR (MDRD) Af Amer 21 L, Est GFR (MDRD) Non-Af 17 L, BUN/Creatinine Ratio 4.6 L, Glucose 79, Calcium 8.0 L, Total Bilirubin 0.50, AST 19, ALT 17, Alkaline Phosphatase 95, Total Protein 5.5 L, Albumin 2.1 L, Globulin 3.4, Albumin/Globulin Ratio 0.6 L Physical Exam Narrative Constitutional Narrative: General: NAD HEENT: Normocephalic, atraumatic.? PERRLA, EOMI.? Hearing is intact.? Mucous membranes moist without erythema. Neck: Supple, no JVD. Heart: Normal S1, S2.? No rubs, murmurs or gallops. Lungs: Decreased breath sound at bases.? No wheezing. Abdomen: Normal bowel sounds, soft, nontender, no organomegaly, no guarding or rebound. Extremity: There is 2+ lower extremity edema.? There is a left lower arm AV graft which has good thrill and bruit. Musculoskeletal: Full passive range of motion.? There is no joint swelling. Neurological: No focal neurologic deficit. Psychiatric: Normal mood and affect. Skin: No rash, skin is warm and dry. Assessment & Plan Assessment/Plan (1) Symptomatic anemia: PLAN: Recommend to give him the other 2000 mL of GoLytely and he will need tapwater enemas until clear. The plan is to perform colonoscopy tomorrow. Charges/Coding Visit Charges Inpatient E&M: 21074 Subs Hosp L2
[2022-03-19 12:22] LABS: Hematocrit 26.4 % (40-54)
--- NOTE | 2022-03-19 12:56 | PCM.PN.HOSP ---
Subjective Subjective Follow-up on acute GI bleed/severe blood loss anemia: Patient was seen and examined. His is at the bedside. He is on 4 L of oxygen which is close to his baseline. His stated that they have noticed some bright red bleeding in his briefs and twice in the toilet bowl. He denies any chest pain or dizziness or palpitations. Objective Data Objective Data Vital Signs: Vital Signs Temp Pulse Resp BP Pulse Ox O2 Del Method O2 Flow Rate 99.1 F 70 18 108/48 L 100 Nasal Cannula 4 03/18/22 23:27 03/18/22 23:27 03/18/22 23:27 03/18/22 23:27 03/18/22 23:27 03/18/22 23:27 03/18/22 23:27 Oxygen Flow Rate (L/min) 4 Oxygen Delivery Method Nasal Cannula Weight: 84.277 kg Body Mass Index (BMI) 29.0 Lab / Micro Data Result Diagrams: 03/19/22 12:00 03/19/22 07:05 Labs: Laboratory Results - last 24 hr 03/18/22 17:50: WBC 7.0, RBC 2.50 L, Hgb 7.8 L, Hct 25.3 L, MCV 101.2 H, MCH 31.2, MCHC 30.8 L, RDW Std Deviation 69.0 H, RDW Coeff of Nick 18.8 H, Plt Count 240, MPV 8.6, Immature Gran % (Auto) 0.300, Neut % (Auto) 73.6 H, Lymph % (Auto) 6.6 L, [place] % (Auto) 10.4 H, Eos % (Auto) 8.0 H, Baso % (Auto) 1.1 H, Absolute Neuts (auto) 5.1, Absolute Lymphs (auto) 0.46 L, Nucleated RBC % 0, Differential Comment SEE COMMENT, Platelet Estimate ADEQUATE, RBC Morphology N CHROM, Hypochromasia 1+, Anisocytosis 1+, Macrocytosis 1+ 03/18/22 17:50: Sodium 138, Potassium 3.2 L, Chloride 98, Carbon Dioxide 38.0 H, Anion Gap 2 L, BUN 9, Creatinine 2.11 H, Estim Creat Clear Calc 28.28, Est GFR (MDRD) Af Amer 40 L, Est GFR (MDRD) Non-Af 33 L, BUN/Creatinine Ratio 4.3 L, Glucose 120 H, Calcium 8.3 L 03/19/22 00:45: Hgb 7.7 L, Hct 26.5 L 03/19/22 07:05: Sodium 140, Potassium 3.2 L, Chloride 100, Carbon Dioxide 32.0, Anion Gap 8, BUN 12, Creatinine 2.69 H, Estim Creat Clear Calc 22.18, Est GFR (MDRD) Af Amer 30 L, Est GFR (MDRD) Non-Af 25 L, BUN/Creatinine Ratio 4.5 L, Glucose 86, Calcium 8.1 L 03/19/22 07:05: Hgb 7.0 L, Hct 24.7 L 03/19/22 07:05: PT 19.5 H, INR 1.7, APTT 45.5 H 03/19/22 12:00: Hgb 8.0 L, Hct 26.4 L Physical Exam Narrative Physical exam: General: Alert, Oriented x3, Cooperative, appears very frail, on 4 L of oxygen HEENT: Atraumatic Oral: Moist Mucosa Neck: Supple Lungs: Diminished to auscultation Cardiovascular: HS I+II, regular, no murmurs Abdomen: Bowel Sounds Present, Soft, Non Tender Extremities: No edema Skin: No rashes, No breakdown Neurological: Grossly intact Psych/Mental Status: Appropriate Assessment & Plan Assessment/Plan (1) Lower GI bleed: PLAN: Plan 1. Acute GI bleed, probably lower, in a patient with history of upper GI bleed from gastric ulcers and angiodysplastic lesions GI consulted, plan is for EGD/colonoscopy Continue on PPI twice daily 2. Acute blood loss anemia secondary to 1, hemoglobin is 8.0, Will hold Eliquis, continue management as an #1 Continue on oral iron 4. Hypokalemia, K 3.2, will replace with 20mEq x1, trend in am 5. CAD status post stents/Paroxysmal A. fib/hypothyroidism/Depression Continue on amiodarone, Coreg, statin, Zoloft 6. ESRD on HD, MWF, will consult nephrology Continue midodrine 7. DVT prophylaxis - SCDs Charges/Coding Visit Charges Inpatient E&M: 66172 Subs Hosp L2
[2022-03-19] MEDS: Potassium Chloride 10mEq/100mL 10 MEQ/100 ML IV.SOLN. 100 MEQ IV BOLUS ×2 (13:32→15:18)
[2022-03-19 13:54] VITALS: BP 108/60; PULSE 78; RESP 18; TEMP 36.7; O2SAT 100
[2022-03-19] MEDS: Ferrous Sulfate 325 MG Tablet PO (16:55)
[2022-03-19 19:00] VITALS: PULSE 78
--- NOTE | 2022-03-19 19:05 | CON.PCM.RE_ITS ---
Assessment & Plan Assessment/Plan (1) ESRD (end stage renal disease) on dialysis: (2) HTN (hypertension): (3) Anemia: (4) Lower GI bleed: PLAN: Plan - No need for dialysis today. The patient does not look to be overtly volume overloaded. He is not hyperkalemic. In fact, he is hypokalemic. -I will arrange for dialysis on his usual schedule on 03/21/2022. -Agree with potassium replacement. -Treatment of acute blood loss anemia is as per hospital medicine service and GI service. -We will resume FERMIN with dialysis on 03/21/2022. HPI Consult Data Date of Consult: 03/19/22 HPI Narrative Reason for Consultation: ESRD, dialysis management HPI Narrative: ANGIE SINGH, is a 76-year-old man with past history of CAD, heart failure with reduced ejection fraction, hypertension, atrial fibrillation, obstructive sleep apnea, gout, and hyperlipidemia.? The patient also has a history of ESRD and receives dialysis at [facility] dialysis unit on a MWF schedule.? The patient is followed in the dialysis unit by Dr. Raymond and Dr. Fam. The patient was admitted to the hospital tween 02/02/2022 until 02/08/2022 with upper GI bleed and acutely low hemoglobin at 6.5 g/dL.? The patient was also hospitalized in December 2021 with upper GI bleed and had angiodysplastic lesion in the stomach as well as gastric ulcer. The patient presented to the hospital on 03/18/2022 with recurrent GI bleed. Nephrology is consulted for dialysis management.? The patient denies current chest pain, shortness of breath, nausea, or vomiting.? The patient does have some lower extremity edema. The patient received his full dialysis treatment on 03/18/2022 prior to admission. [facility] Medical History (Updated 03/19/22 @ 19:[address] Elke Hewitt MD) Abnormal chest CT Anemia Anxiety Arthritis Back pain BPH (benign prostatic hyperplasia) Congestive heart failure (CHF) COPD (chronic obstructive pulmonary disease) COPD (chronic obstructive pulmonary disease) Coronary artery disease involving coronary bypass graft Coronary atherosclerosis of [place] coronary artery CPAP (continuous positive airway pressure) dependence Depression Emphysema, unspecified End-stage renal disease on hemodialysis Erectile dysfunction ESRD (end stage renal disease) Former smoker GERD (gastroesophageal reflux disease) Gout High cholesterol History of atrial fibrillation History of edema History of heart attack HLD (hyperlipidemia) Hypertension Lumbar disc disease with radiculopathy Obesity On home oxygen therapy MARCELO (obstructive sleep apnea) Pleural effusion Psychosexual dysfunction with inhibited sexual excitement Sleep apnea Symptomatic anemia Home Medications allopurinol 100 mg tablet 100 mg PO DAILY GOUT 05/03/18 [History Last Taken 03/18/22] nitroglycerin 0.4 mg sublingual tablet 0.4 mg sublingual Q5-15M PRN chest pain 05/03/18 [History Last Taken Unknown] ferrous sulfate 325 mg (65 mg iron) tablet (iron) 65 mg PO BID supplement 11/09/20 [History Last Taken 03/18/22] sertraline 50 mg tablet 50 mg PO DAILY mood 11/09/20 [History Last Taken 03/18/22] amiodarone 200 mg tablet 100 mg PO DAILY heart 11/19/20 [History Last Taken 03/18/22] apixaban 5 mg tablet 5 mg PO BID blood thinner 11/19/20 [History Last Taken 03/18/22] rosuvastatin 10 mg tablet (Crestor) 10 mg PO QHS cholesterol 11/19/20 [History Last Taken 03/17/22] albuterol sulfate 2.5 mg/3 mL (0.083 %) solution for nebulization 2.5 mg inhalation 4X/DAY PRN PRN COPD 11/23/20 [History Last Taken 12/13/21] ascorbic acid (vitamin C) 500 mg capsule,extended release (Vitamin C) 500 mg PO DAILY supplement 11/23/20 [History Last Taken 03/18/22] fluticasone propionate 50 mcg/actuation nasal spray,suspension 2 spray intranasal DAILY ALLERGIES #16 grams 04/06/21 [Rx Last Taken 03/18/22] glycopyrrolate 9 mcg-formoterol 4.8 mcg HFA aerosol inhaler (Bevespi Aerosphere) 2 puff inhalation BID PRN SOB #3 ea 07/12/21 [Rx Last Taken 12/12/21] carvedilol 6.25 mg tablet (Coreg) 3.125 mg PO DAILY heart 11/04/21 [History Last Taken 03/18/22] gabapentin 100 mg capsule 200 mg PO QHS restless leg 11/04/21 [History Last Taken 03/17/22] midodrine 10 mg tablet 10 mg PO MOWEFR bp 11/04/21 [History Last Taken 03/18/22] vericiguat 2.5 mg tablet (Verquvo) 5 mg PO DAILY heart 11/04/21 [History Last Taken 12/13/21] guaifenesin 600 mg tablet, extended release 12 hr (Mucinex) 1,200 mg PO BID congestion 12/13/21 [History Last Taken 03/18/22] levothyroxine 50 mcg tablet 50 mcg PO DAILY thyroid 12/13/21 [History Last Taken 03/18/22] montelukast 10 mg tablet 10 mg PO DAILY congestion 12/13/21 [History Last Taken 03/18/22] vitamin B complex-vitamin C-folic acid 0.8 mg tablet (Tawanna-Laura) 1 tab PO DAILY supplement 12/13/21 [History Last Taken 03/18/22] aspirin 81 mg capsule 81 mg PO DAILY heart 02/02/22 [History Last Taken 03/18/22] misoprostol 200 mcg tablet 200 mcg PO 4X/DAYCM Check with primary doctor 03/18/22 [History Last Taken 03/18/22] pantoprazole 40 mg tablet,delayed release 40 mg PO BID GERD 03/18/22 [History Last Taken 03/18/22] Allergy/AdvReac Type Severity Reaction Status Date / Time Penicillins Allergy Severe Rash, 105 Verified 03/18/22 16:56 temp amlodipine Allergy itching Verified 03/18/22 16:56 and rash prednisone Allergy Other Verified 03/18/22 16:56 aspirin AdvReac Mild rash Verified 03/18/22 16:56 Family History Mother , 84 y.o. Hypertension CVA (cerebral vascular accident) Father , 70 y.o. Heart disease Hodgkin disease Sister , 72 y.o. Heart disease Surgical History H/O left cataract extraction History of cardiac catheterization History of colonoscopy History of coronary artery stent placement History of heart artery stent History of heart surgery History of knee replacement procedure of left knee History of open heart surgery (~08/2020) History of total right knee replacement S/P arteriovenous (AV) fistula repair (~12/2020) Social History household members: spouse housing: house pets and animals: No Smoking Status: Former smoker second hand exposure: No alcohol intake: current alcohol intake frequency: holidays/special occasions only ROS ROS Narrative 12/20 ROS was done and is otherwise noncontributory to what is already documented in the HPI. Physical Exam Narrative Constitutional Narrative: General: NAD HEENT: Normocephalic, atraumatic.? PERRLA, EOMI.? Hearing is intact.? Mucous membranes moist without erythema. Neck: Supple, no JVD. Heart: Normal S1, S2.? No rubs, murmurs or gallops. Lungs: Decreased breath sound at bases.? No wheezing. Abdomen: Normal bowel sounds, soft, nontender, no organomegaly, no guarding or rebound. Extremity: There is 2+ lower extremity edema.? There is a left lower arm AV graft which has good thrill and bruit. Musculoskeletal: Full passive range of motion.? There is no joint swelling. Neurological: No focal neurologic deficit. Psychiatric: Normal mood and affect. Skin: No rash, skin is warm and dry. Lab / Micro Data Result Diagrams: 03/19/22 12:00 03/19/22 07:05 Labs: Laboratory Results - last 24 hr 03/19/22 00:45: Hgb 7.7 L, Hct 26.5 L 03/19/22 07:05: Sodium 140, Potassium 3.2 L, Chloride 100, Carbon Dioxide 32.0, Anion Gap 8, BUN 12, Creatinine 2.69 H, Estim Creat Clear Calc 22.18, Est GFR (MDRD) Af Amer 30 L, Est GFR (MDRD) Non-Af 25 L, BUN/Creatinine Ratio 4.5 L, Glucose 86, Calcium 8.1 L 03/19/22 07:05: Hgb 7.0 L, Hct 24.7 L 03/19/22 07:05: PT 19.5 H, INR 1.7, APTT 45.5 H 03/19/22 12:00: Hgb 8.0 L, Hct 26.4 L
[2022-03-19 19:20] VITALS: PULSE 83; RESP 18
[2022-03-19] MEDS: Ipratropium/Albuterol Sulfate 3 ML AMPUL.NEB INHALATION (19:21)
[2022-03-19 19:53] VITALS: BP 122/97; PULSE 73; RESP 18; TEMP 36.7; O2SAT 100
[2022-03-19] MEDS: Gabapentin 100 MG Capsule 200 MG PO (21:35)
[2022-03-19] MEDS: guaiFENesin 1,200 MG Tablet 1200 MG PO (21:35)
[2022-03-19] MEDS: Montelukast 10 MG Tablet PO (21:35)
[2022-03-19 23:55] VITALS: PULSE 72
[2022-03-20] VITALS (18 sets, daily range): BP systolic 92–128; BP diastolic 49–82; PULSE 65–85; RESP 18–20; TEMP 36.4–36.9; O2SAT 93–100
--- NOTE | 2022-03-20 | IMM_PTH ---
PATIENT: ANGIE SINGH LOC: MS3 U#:[id number] AGE/SX: 76/M ROOM: WI318 RE03/20/[address]: Dr. Kaylen Galindo MD : 1945 BED: 1 DIS: 03/23/2022 SPEC #: [id number] RECD: 03/22/22 13:17 STATUS: SOUT REQ #: [id number] AVEL: 03/20/22 00:[address]: Kaylen Galindo DEPT: IMMUNOHISTOCHEMISTRY RECD BY: Kelsey Mckenna ENTERED: 03/22/22 13:19 SP TYPE: IMMUNO OTHR DR: MD Dr. Epifanio Myers MD Dr. Jayaprakas Dasari, MD Dr. Michael Bortz, MD Dr. Rahsaan Friend, DO Dr. Scott Brown, MD Tissues: A - Cecum, NOS Procedures: MSH2 (add) MLH-1 (add) MSH6 (add) Anti-PMS2 (add) CEA (add) CK20 (add) CK7 (add) CK8 (add) RIZZO-2 (add) KI-67 (add) P53 (add) Pankeratin (initial) CDX2 (add) PHYSICIAN & [place] [id number] SPECIMEN INFORMATION: Tissue Source: A ? Cecal mass Clinical Info: GI bleed Specimen Number: [id number] CPT code: 45092, 40531 x12 METHODOLOGY: Deparaffinized sections of prefer/formalin-fixed tissue or PAP/DQ stained slides are incubated with monoclonal/polyclonal antibodies/oligonucleotide probes. Localization is made via biotin free immunoperoxidase method. Appropriate controls are performed and reacted as expected. Results on target cell population are indicated in the following table: RESULTS: ANTIBODY / CLONE RESULT Block A AE1-3 (AE1/AE3/PCK26) positive CK7 (OV-TL12/30) negative CK8 (25crojV65) positive CK20 (KS20.8) negative RIZZO-2 (SP21) positive CDX2 (XKQ0064L) positive CEA (11-7/TF-3HB-1) positive, focal MLH-1 (M1) positive MSH2 (25D12) positive MSH6 (44) positive PMS2 (MBV0916) positive Ki-67 (30-9) positive P53 (DO-7) positive, 45%, dim to moderate intensity These tests were developed and their performance characteristics determined by [facility]. They may not have been cleared or approved by the U.S. Food and Drug Administration. The FDA has determined that such clearance or approval is not necessary. The above immunohistochemical/dualISH markers are ordered and reviewed by the Pathologist. INTERPRETATION: Cecum mass, biopsy: Invasive adenocarcinoma. Result of Microsatellite Instability Study: Negative (no loss of mismatch protein; no microsatellite instability detected). AM:eladio 03/23/2022
[2022-03-20] MEDS: Ipratropium/Albuterol Sulfate 3 ML AMPUL.NEB INHALATION ×2 (07:06→19:18)
[2022-03-20 07:16] LABS: Absolute Lymphocyte Count 0.72 X10^3/uL (0.83-4.51); Absolute Neutrophil Count 3.7 X10^3/uL (2.0-7.7); Basophil# 0.08 X10^3/uL; Basophil% 1.4 % (0-1); Eosinophil# 0.65 X10^3/uL; Eosinophils% 11.1 % (0-5); Hematocrit 21.8 % (40-54); Hemoglobin 6.8 g/dL (13.0-16.5); Lymphocyte # 0.72 X10^3/ul (0.83-4.51); Lymphocyte % 12.3 % (19-41); Mean Corp Hgb Conc 31.2 g/dL (32-36); Mean Corpuscular Hgb 30.9 pg (27.0-32.0); Mean Corpuscular Volume 99.1 fL (80-94); Mean Platelet Vol. 8.9 fl (6.2-12.0); Monocyte# 0.66 X10^3/uL; Monocyte% 11.3 % (0-10); NRBC Flagged by Analyzer 0 % (0-5); Neutrophil # 3.69 X10^3/uL (2.7-7.7); Neutrophil % 63.2 % (47-70); POSITIVE MORPHOLOGY YES; Platelet Count 197 K/mm3 (150-450); RBC Distribution Width CV 19.4 % (11.6-14.6); RBC Distribution Width SD 69.3 fl (35.1-43.9); White Blood Count 5.8 K/mm3 (4.4-11.0)
[2022-03-20 07:22] LABS: Differential Indicated SCAN CRITERIA MET
[2022-03-20 07:40] LABS: ALB/GLOB Ratio 0.6 RATIO (0.9-2.4); AST(SGOT) 19 U/L (15-37); Alanine Aminotransfer ALT/SGPT 17 U/L (16-61); Albumin, Serum 2.1 g/dL (3.2-5.0); Alkaline Phosphatase 95 U/L (45-117); Anion Gap 6 (5-15); BUN 17 mg/dL (7-18); BUN/Creat Ratio 4.6 RATIO (10-20); Chloride 100 mmol/L (98-107); Creatinine, Serum 3.66 mg/dL (0.70-1.30); EST Glomerular Filtration Rate 17 mL/min (>60); Est Glom Filt Rate - Afr Amer 21 mL/min (>60); Globulin 3.4 g/dL (2.2-4.2); Glucose 79 mg/dL (74-106); Potassium 3.8 mmol/L (3.5-5.1); Protein, Total 5.5 g/dL (6.4-8.2); Sodium Level 138 mmol/L (136-145)
[2022-03-20 07:53] LABS: Anisocytosis 3+
[2022-03-20] MEDS: Sertraline 50 MG Tablet PO (08:20)
[2022-03-20] MEDS: Carvedilol 3.125 MG TABLET PO (08:20)
[2022-03-20] MEDS: Allopurinol 100 MG Tablet PO (08:20)
[2022-03-20] MEDS: Fluticasone 0.05% 1 SPRAY NASAL.SRY 2 SPRAY NASAL (08:20)
[2022-03-20] MEDS: guaiFENesin 1,200 MG Tablet 1200 MG PO ×2 (08:20→22:20)
[2022-03-20] MEDS: Amiodarone 200 MG Tablet 100 MG PO (08:20)
[2022-03-20] MEDS: Lactated Ringers 1,000 ML 15 ML IV (08:26)
--- NOTE | 2022-03-20 09:05 | COLBX_PTH ---
PATIENT: ANGIE SINGH LOC: MS3 U#:[id number] AGE/SX: 76/M ROOM: NH318 RE03/20/[address]: Dr. Kaylen Galindo MD : 1945 BED: 1 DIS: 03/23/2022 SPEC #: [id number] RECD: 03/20/22 10:46 STATUS: PENNY REQ #: [id number] AVEL: 03/20/22 09:[address]: Khari oMhr DEPT: SURGICAL PATHOLOGY RECD BY: Fidelina Osman ENTERED: 03/21/22 10:27 SP TYPE: COLON BX OTHR DR: MD Dr. Epifanio Myers MD Dr. Jayaprakas Dasari, MD Dr. Michael Bortz, MD Dr. Paige Pierce, MD Dr. Rahsaan Friend, DO Dr. Scott Brown, MD Tissues: A - Cecum, NOS B - Rectum, NOS Procedures: Special Stain Group II Mucicarmine Stain (control) Surgery Specimen Level IV Comments: @ Ordering doctor for SUIV edited from to @ by RGOOD at 03/21/22 153 @ Submitting doctor edited from to @ by RGOOD at 03/21/22 1537 HEADER OPERATION: Colonoscopy with biopsy, polypectomy and spot (MAC) PRE-OP DIAGNOSIS: GI bleed TISSUE SUBMITTED: A ? Cecal mass, B ? Rectal polyp MICROSCOPIC DIAGNOSIS A. Cecal mass, biopsy: Invasive poorly differentiated adenocarcinoma. See comment. B. Rectal polyp, biopsy: Tubular adenoma. AM:eladio 03/22/2022 COMMENT A. Immunohistochemistry ([id number]) supports the above diagnosis. Mucin stain with matched control was used in the evaluation of this case. Case has been reviewed in consultation with Dr. Powell who concurs with the above diagnosis. IDC:SJ MICROSCOPIC DESCRIPTION Slides are reviewed. GROSS DESCRIPTION A - Received in fixative is one container labeled with the patient's name and designated cecal mass. The specimen consists of multiple irregular fragments of light saleem soft tissue that in aggregate measure 1.5 x 0.5 x 0.1 cm. The specimen is totally submitted in one cassette. B - Received in fixative is one container labeled with the patient's name and designated rectal polyp. The specimen consists of one irregular fragment of light saleem soft tissue that measures 0.3 x 0.3 x 0.1 cm. The specimen is totally submitted in one cassette. / SJ:rg 03/21/2022 TC:0 CPT: 79379 x2, 14415
--- NOTE | 2022-03-20 10:01 | OP.COLON_ITS ---
Patient Name: Minh Gonzalez Procedure Date: 03/20/2022 8:56 AM Date of : 1945 Age: 76 Procedure: Colonoscopy Indications: Hematochezia Providers: Khari Mohr DO Medicines: Monitored Anesthesia Care Patient Profile: This is a 76 year old male. Refer to note in patient chart for documentation of history and physical. Last Colonoscopy: date unknown. Unable to locate last colonoscopy report. Complications: No immediate complications. Procedure: Pre-Anesthesia Assessment: - Prior to the procedure, a History and Physical was performed, and patient medications and allergies were reviewed. The patient is competent. The risks and benefits of the procedure and the sedation options and risks were discussed with the patient. All questions were answered and informed consent was obtained. Patient identification and proposed procedure were verified by the physician in the pre-procedure area. Mental Status Examination: alert and oriented. Airway Examination: normal oropharyngeal airway and neck mobility. Respiratory Examination: clear to auscultation. CV Examination: normal. Prophylactic Antibiotics: The patient does not require prophylactic antibiotics. Prior Anticoagulants: The patient has taken no previous anticoagulant or antiplatelet agents. ASA Grade Assessment: II - A patient with mild systemic disease. After reviewing the risks and benefits, the patient was deemed in satisfactory condition to undergo the procedure. The anesthesia plan was to use monitored anesthesia care (MAC). Immediately prior to administration of medications, the patient was re-assessed for adequacy to receive sedatives. The heart rate, respiratory rate, oxygen saturations, blood pressure, adequacy of pulmonary ventilation, and response to care were monitored throughout the procedure. The physical status of the patient was re-assessed after the procedure. After I obtained informed consent, the scope was passed under direct vision. Throughout the procedure, the patient's blood pressure, pulse, and oxygen saturations were monitored continuously. The colonoscope was introduced through the anus and advanced to the cecum, identified by appendiceal orifice and ileocecal valve. The colonoscopy was performed without difficulty. The patient tolerated the procedure well. The quality of the bowel preparation was adequate. Scope In: 9:21:24 AM Scope Withdrawal Time 0 hours 2 minutes 24 seconds Scope Out: 9:42:32 AM Total Procedure Duration Time 0 hours 21 minutes 8 seconds Findings: The perianal and digital rectal examinations were normal. A 5 mm polyp was found in the rectum. The polyp was sessile. The polyp was removed with a cold snare. Resection and retrieval were complete. Verification of patient identification for the specimen was done. An ulcerated non-obstructing large mass was found in the cecum. The mass was non-circumferential. The mass measured one cm in length. In addition, its diameter measured five mm. Oozing was present. This was biopsied with a cold forceps for histology. Verification of patient identification for the specimen was done. Area was tattooed with an injection of 5 mL of Mari ink. Impression: - One 5 mm polyp in the rectum, removed with a cold snare. Resected and retrieved. - Malignant tumor in the cecum. Biopsied. Tattooed. Recommendation: - Return patient to hospital [facility] for ongoing care. - Resume previous diet. - Continue present medications. - Await pathology results. - Repeat colonoscopy is recommended for surveillance. The colonoscopy date will be determined after pathology results from today's exam become available for review. Procedure Code(s): --- Professional --- 96115, Colonoscopy, flexible; with removal of tumor(s), polyp(s), or other lesion(s) by snare technique 76391, Colonoscopy, flexible; with directed submucosal injection(s), any substance 85146, 59, Colonoscopy, flexible; with biopsy, single or multiple CPT copyright 2017 [employer]. All rights reserved. The codes documented in this report are preliminary and upon refrigerator glazier review may be revised to meet current compliance requirements. Khari Mohr DO 03/20/2022 10:01:03 AM This report has been signed electronically. Number of Addenda: 0 Note Initiated On: 03/20/2022 8:56 AM
--- NOTE | 2022-03-20 10:02 | OP.CCLET_ITS ---
03/20/2022 Zack Stacy Re : Colonoscopy procedure for Minh Stacy This procedure was performed on Sunday, March 20, 2022. My impressions and recommendations are as follows: Impressions : - One 5 mm polyp in the rectum, removed with a cold snare. Resected and retrieved. - Malignant tumor in the cecum. Biopsied. Tattooed. Recommendations : - Return patient to hospital [facility] for ongoing care. - Resume previous diet. - Continue present medications. - Await pathology results. - Repeat colonoscopy is recommended for surveillance. The colonoscopy date will be determined after pathology results from today's exam become available for review. My findings are described in the full procedure note, which is enclosed. If I can be of further assistance, please feel free to contact me at . Sincerely, Khari Mohr, 03/20/2022 10:01:03 AM This report has been signed electronically.
--- NOTE | 2022-03-20 12:06 | CT_ITS ---
INDICATION: cecal mass, likely malignant, probable mets EXAMINATION: CT CHEST, ABDOMEN AND PELVIS WITH CONTRAST - CT Chest Abdomen And Pelvis W/ Contrast Injection TECHNIQUE: Helically acquired images were obtained of the chest, abdomen, and pelvis following IV contrast. CTA protocol with 3D reformats were performed. A radiation dose optimization technique was used for this scan. IV Contrast dosage and agent: Oral contrast: None. COMPARISON: None. FINDINGS: ----Chest: LUNGS, PLEURA AND LARGE AIRWAYS: There is generalized diffuse interstitial thickening more severe in the lower lobes. There are small bilateral effusions and bibasilar atelectasis or infiltrate. . No pneumothorax. THYROID: No thyroid lesions. HEART AND PERICARDIUM: Heart is enlarged and there is multivessel coronary artery disease. No pericardial effusion. VESSELS: Atherosclerotic change of the aorta without evidence for aneurysm. No aortic dissection. No obvious central pulmonary embolism although this study was not performed with the pulmonary embolism protocol. MEDIASTINUM AND ASHLI: Mildly enlarged subcentimeter mediastinal nodes of uncertain significance.. Esophagus is unremarkable. No hiatal hernia. BONES: Dorsal spine demonstrates moderate spondylosis Postop change status post median sternotomy and CABG. No suspicious lytic or blastic abnormality. ----Abdomen/Pelvis: LIVER: Nonspecific fatty liver.. No focal mass. GALLBLADDER AND BILIARY TREE: No calcified gallstones. No gallbladder distension or wall edema. No intra- or extrahepatic biliary ductal dilation. PANCREAS: No focal cystic or solid mass. SPLEEN: Normal size without focal cystic or solid mass. ADRENAL GLANDS: No nodules. KIDNEYS AND URETERS: Normal renal size and position. No hydronephrosis. Small simple cyst in the right kidney which will not require additional imaging. PERITONEUM: No ascites or free air. No other fluid collection. BOWEL: No evidence of acute appendicitis. No stomach or bowel distension. There is a large eccentric mass involving the cecum and proximal ascending colon which may be consistent with neoplasm No focal inflammatory change. LYMPH NODES: No pathologically enlarged retroperitoneal nodes. There are small subcentimeter mesenteric nodes and. VESSELS: Atherosclerotic changes of the aorta without evidence for aneurysm URINARY BLADDER: Poorly distended thick walled bladder REPRODUCTIVE ORGANS: No pelvic masses. ABDOMINAL WALL: No discrete abdominal or pelvic wall hernia. BONES: Lumbar spine demonstrates advanced spondylosis No lytic or blastic abnormality. CT/CT Chest, Abd, Pel w/Contrast IMPRESSION: Nonspecific diffuse interstitial thickening more severe in the lower lobes with small bilateral pleural effusion and consolidation of the lower lobes. No evidence for pulmonary metastasis. Irregular thickening of the barnes of the cecum and proximal ascending colon which may be consistent with neoplasm. No evidence for hepatic metastasis or retroperitoneal adenopathy Electronically Signed: Chu Celestin MD at 17:15 EST ,
--- NOTE | 2022-03-20 12:09 | PCM.PN.HOSP ---
Subjective Subjective Follow-up on acute GI bleed/severe blood loss anemia: Patient was seen and examined.? Patient had colonoscopy done today that showed a malignant tumor in the cecum that was biopsied. General surgery consulted. Objective Data Objective Data Vital Signs: Vital Signs Temp Pulse Resp BP Pulse Ox O2 Del Method O2 Flow Rate 97.5 F L 72 18 99/50 L 94 Nasal Cannula 4 03/20/22 10:05 03/20/22 10:05 03/20/22 10:05 03/20/22 10:05 03/20/22 10:05 03/20/22 10:05 03/20/22 10:05 Oxygen Flow Rate (L/min) 4 Oxygen Delivery Method Nasal Cannula Weight: 84.277 kg Body Mass Index (BMI) 29.0 Intake & Output: Intake and Output for Last 24 Hours 03/18/22 03/19/22 03/20/22 23:59 23:59 23:59 Intake Total 1200 / 1700 500 / 500 Output Total 0 / 0 Balance 1200 / 1700 500 / 500 Lab / Micro Data Result Diagrams: 03/20/22 06:20 03/20/22 06:20 Labs: Laboratory Results - last 24 hr 03/19/22 12:00: Hgb 8.0 L, Hct 26.4 L 03/19/22 12:00: Blood Type AB POSITIVE, Antibody Screen NEGATIVE, Crossmatch See Detail 03/20/22 06:20: WBC 5.8, RBC 2.20 L, Hgb 6.8 L, Hct 21.8 L, MCV 99.1 H, MCH 30.9, MCHC 31.2 L, RDW Std Deviation 69.3 H, RDW Coeff of Nick 19.4 H, Plt Count 197, MPV 8.9, Immature Gran % (Auto) 0.700, Neut % (Auto) 63.2, Lymph % (Auto) 12.3 L, Wilkin % (Auto) 11.3 H, Eos % (Auto) 11.1 H, Baso % (Auto) 1.4 H, Absolute Neuts (auto) 3.7, Absolute Lymphs (auto) 0.72 L, Nucleated RBC % 0, Anisocytosis 3+ 03/20/22 06:20: Sodium 138, Potassium 3.8, Chloride 100, Carbon Dioxide 32.0, Anion Gap 6, BUN 17, Creatinine 3.66 H, Estim Creat Clear Calc 16.30, Est GFR (MDRD) Af Amer 21 L, Est GFR (MDRD) Non-Af 17 L, BUN/Creatinine Ratio 4.6 L, Glucose 79, Calcium 8.0 L, Total Bilirubin 0.50, AST 19, ALT 17, Alkaline Phosphatase 95, Total Protein 5.5 L, Albumin 2.1 L, Globulin 3.4, Albumin/Globulin Ratio 0.6 L Physical Exam Narrative Physical exam: General: Alert, Oriented x3, Cooperative, appears fair HEENT: Atraumatic Oral: Moist Mucosa Neck: Supple Lungs: Clear to auscultation Cardiovascular: HS I+II, regular, no murmurs Abdomen: Bowel Sounds Present, Soft, Non Tender Extremities: No edema Skin: No rashes, No breakdown Neurological: Grossly intact Psych/Mental Status: Appropriate Assessment & Plan Assessment/Plan (1) Lower GI bleed: PLAN: Plan 1. Acute GI bleed secondary to cecal mass, probable malignant Status post colonoscopy on 03/19/22 by GI General surgery consulted, continue on PPI twice daily CT of the abdomen and pelvis and chest with contrast to assess for metastasis 2. Acute blood loss anemia secondary to #1, hemoglobin is 6.8 Will transfuse 1 unit of packed RBCs Continue to hold Eliquis, continue management as an #1 Continue on oral iron 4. Hypokalemia, replaced, recheck in a.m. 5. CAD status post stents/Paroxysmal A. fib/hypothyroidism/Depression Continue on amiodarone, Coreg, statin, Zoloft 6. ESRD on HD, MWF, will consult nephrology Continue midodrine 7. DVT prophylaxis - SCDs Charges/Coding Visit Charges Inpatient E&M: 84285 Subs Hosp L2
[2022-03-20] MEDS: Ferrous Sulfate 325 MG Tablet PO ×2 (12:39→18:20)
--- NOTE | 2022-03-20 14:01 | EX.PCM.CON.S ---
Assessment & Plan Assessment/Plan (1) Mass of cecum: PLAN: Patient is a 76-year-old male, with extensive comorbidity, who is under evaluation for anemia and was diagnosed with a endoscopically unresectable cecal mass during diagnostic colonoscopy earlier today. Patient and his give a history of several months of GI bleeding. It is clear that patient has had multiple sources of GI bleeding?including upper GI ulcers. Biopsies were taken of endoscopically unresectable mass in the cecum today and pathology is currently pending. With this status no malignancy has been confirmed. I have shared with patient that he would require a surgical intervention to address this problem and eliminate this cause for ongoing anemia, but the most appropriate operation is not yet entirely clear. I discussed?accompanied by hand drawings?options for either ileocecectomy versus right hemicolectomy. I suggested a favored a recommendation for right hemicolectomy given that sampling error could fail to identify an invasive carcinoma at the time of endoscopy, that would then be apparent in a final pathology specimen. I shared with them that I be concerned a ileocecectomy would not provide a adequate lymph node harvest to appropriately stage patient. Patient and his spouse expressed understanding of this information. I have also shared with them that while a procedure may be technically feasible, I would be somewhat concerned for Mr. Gonzalez worse postoperative care needs. To this end I shared with them his next quick calculator results based on parameters available in his chart. Based on this calculation patient's operative risk exceeds average outcome risks in every category?particularly for serious complication, cardiac complication, mortality risk, sepsis, and discharge to nursing or rehab facility. Patient and his spouse expressed understanding of this information as well and question whether or not they should be evaluated at a larger facility?such as [facility]?where they had a good experience for patients CABG procedure in 2020. I shared with him that this could certainly be considered. For the interim recommend: ? Follow-up pending CT of the chest abdomen pelvis ? Follow-up ordered CEA level ? Follow-up patient's H&H stability after today's colonoscopy ? Follow-up pathology from today's colonoscopy biopsies ? Follow-up patient's concerns about facility capabilities ? Patient okay to receive a clear liquid diet from surgical standpoint HPI Consult Data Date of Consult: 03/20/22 HPI Narrative Reason for Consultation: Endoscopically unresectable cecal mass HPI Narrative: ANGIE GONZALEZ, is a 76 M who presented to [facility] with symptomatic anemia after he was found to have confirmed bleeding in his colon by capsule endoscopy as an outpatient. He underwent diagnostic colonoscopy with gastroenterology today where he was found to have an endoscopically unresectable cecal mass. Pathology is currently pending, but surgery has been consulted to evaluate patient for possible intervention. Patient is visited at bedside with his . Together they provide the history. They state that patient has had melanic stools for the last couple of months. Patient's spouse notes that her was originally sent for emergency room evaluation due to anemia at dialysis in January. Patient underwent an upper scope where there were several bleeding ulcers that were treated. She notes that he then required a subsequent admission in February and required 3 additional scopes. Along this work-up patient confirms a 15 pound weight loss in the past 3 weeks. He states that this has been only partially unintentional as he has been trying to watch his diet. Patient confirms a history of coronary artery disease and history of NM in 2005 status post 4 PCI's. Subsequently in 2020 he underwent CABG at [facility]. He is anticoagulated on Eliquis for history of paroxysmal atrial fibrillation and also has a history of congestive heart failure. He also confirms a history of severe COPD related to a roughly [id number] smoking history. He reports that he underwent smoking cessation 30 years ago. Lastly, he confirms a history of end-stage renal disease on hemodialysis as of May 2021. He reports that his dialysis status is believed to be due to a longstanding history of hypertension. Patient has had 2 prior colonoscopies before today's procedure. He estimates that his last scope was in 2004, but confesses this is just a guess. He does confirm a history of polyps with colonoscopy in the past. Patient denies any awareness of a family history for colon cancer, but reports that his father was diagnosed with Hodgkin's lymphoma in his 70s. Patient has no past surgical history of abdominal surgeries. [facility] Medical History (Updated 03/20/22 @ 14:[address] Андрей Pizano MD) Abnormal chest CT Anemia Anxiety Arthritis Back pain BPH (benign prostatic hyperplasia) Congestive heart failure (CHF) COPD (chronic obstructive pulmonary disease) COPD (chronic obstructive pulmonary disease) Coronary artery disease involving coronary bypass graft Coronary atherosclerosis of [place] coronary artery CPAP (continuous positive airway pressure) dependence Depression Emphysema, unspecified End-stage renal disease on hemodialysis Erectile dysfunction ESRD (end stage renal disease) Former smoker GERD (gastroesophageal reflux disease) Gout High cholesterol History of atrial fibrillation History of edema History of heart attack HLD (hyperlipidemia) Hypertension Lumbar disc disease with radiculopathy Obesity On home oxygen therapy MARCELO (obstructive sleep apnea) Pleural effusion Psychosexual dysfunction with inhibited sexual excitement Sleep apnea Symptomatic anemia Home Medications allopurinol 100 mg tablet 100 mg PO DAILY GOUT 05/03/18 [History Last Taken 03/18/22] nitroglycerin 0.4 mg sublingual tablet 0.4 mg sublingual Q5-15M PRN chest pain 05/03/18 [History Last Taken Unknown] ferrous sulfate 325 mg (65 mg iron) tablet (iron) 65 mg PO BID supplement 11/09/20 [History Last Taken 03/18/22] sertraline 50 mg tablet 50 mg PO DAILY mood 11/09/20 [History Last Taken 03/18/22] amiodarone 200 mg tablet 100 mg PO DAILY heart 11/19/20 [History Last Taken 03/18/22] apixaban 5 mg tablet 5 mg PO BID blood thinner 11/19/20 [History Last Taken 03/18/22] rosuvastatin 10 mg tablet (Crestor) 10 mg PO QHS cholesterol 11/19/20 [History Last Taken 03/17/22] albuterol sulfate 2.5 mg/3 mL (0.083 %) solution for nebulization 2.5 mg inhalation 4X/DAY PRN PRN COPD 11/23/20 [History Last Taken 12/13/21] ascorbic acid (vitamin C) 500 mg capsule,extended release (Vitamin C) 500 mg PO DAILY supplement 11/23/20 [History Last Taken 03/18/22] fluticasone propionate 50 mcg/actuation nasal spray,suspension 2 spray intranasal DAILY ALLERGIES #16 grams 04/06/21 [Rx Last Taken 03/18/22] glycopyrrolate 9 mcg-formoterol 4.8 mcg HFA aerosol inhaler (Bevespi Aerosphere) 2 puff inhalation BID PRN SOB #3 ea 07/12/21 [Rx Last Taken 12/12/21] carvedilol 6.25 mg tablet (Coreg) 3.125 mg PO DAILY heart 11/04/21 [History Last Taken 03/18/22] gabapentin 100 mg capsule 200 mg PO QHS restless leg 11/04/21 [History Last Taken 03/17/22] midodrine 10 mg tablet 10 mg PO MOWEFR bp 11/04/21 [History Last Taken 03/18/22] vericiguat 2.5 mg tablet (Verquvo) 5 mg PO DAILY heart 11/04/21 [History Last Taken 12/13/21] guaifenesin 600 mg tablet, extended release 12 hr (Mucinex) 1,200 mg PO BID congestion 12/13/21 [History Last Taken 03/18/22] levothyroxine 50 mcg tablet 50 mcg PO DAILY thyroid 12/13/21 [History Last Taken 03/18/22] montelukast 10 mg tablet 10 mg PO DAILY congestion 12/13/21 [History Last Taken 03/18/22] vitamin B complex-vitamin C-folic acid 0.8 mg tablet (Tawanna-Laura) 1 tab PO DAILY supplement 12/13/21 [History Last Taken 03/18/22] aspirin 81 mg capsule 81 mg PO DAILY heart 02/02/22 [History Last Taken 03/18/22] misoprostol 200 mcg tablet 200 mcg PO 4X/DAYCM Check with primary doctor 03/18/22 [History Last Taken 03/18/22] pantoprazole 40 mg tablet,delayed release 40 mg PO BID GERD 03/18/22 [History Last Taken 03/18/22] Allergy/AdvReac Type Severity Reaction Status Date / Time Penicillins Allergy Severe Rash, 105 Verified 03/18/22 16:56 temp amlodipine Allergy itching Verified 03/18/22 16:56 and rash prednisone Allergy Other Verified 03/18/22 16:56 aspirin AdvReac Mild rash Verified 03/18/22 16:56 Family History Mother , 84 y.o. Hypertension CVA (cerebral vascular accident) Father , 70 y.o. Heart disease Hodgkin disease Sister , 72 y.o. Heart disease Surgical History H/O left cataract extraction History of cardiac catheterization History of colonoscopy History of coronary artery stent placement History of heart artery stent History of heart surgery History of knee replacement procedure of left knee History of open heart surgery (~08/2020) History of total right knee replacement S/P arteriovenous (AV) fistula repair (~12/2020) Social History household members: spouse housing: house pets and animals: No Smoking Status: Former smoker second hand exposure: No alcohol intake: current alcohol intake frequency: holidays/special occasions only Physical Exam Const alert, oriented x3 and no apparent distress Constitutional Narrative: Pale complexion General Appearance: cooperative Resp normal respiratory effort GI GI Narrative: No scars, nondistended, soft and nontender to palpation x4 quadrants. No visible or palpable herniation. Lab / Micro Data Result Diagrams: 03/20/22 06:20 03/20/22 06:20 Labs: Laboratory Results - last 24 hr 03/19/22 12:00: Blood Type AB POSITIVE, Antibody Screen NEGATIVE, Crossmatch See Detail 03/20/22 06:20: WBC 5.8, RBC 2.20 L, Hgb 6.8 L, Hct 21.8 L, MCV 99.1 H, MCH 30.9, MCHC 31.2 L, RDW Std Deviation 69.3 H, RDW Coeff of Nick 19.4 H, Plt Count 197, MPV 8.9, Immature Gran % (Auto) 0.700, Neut % (Auto) 63.2, Lymph % (Auto) 12.3 L, [place] % (Auto) 11.3 H, Eos % (Auto) 11.1 H, Baso % (Auto) 1.4 H, Absolute Neuts (auto) 3.7, Absolute Lymphs (auto) 0.72 L, Nucleated RBC % 0, Anisocytosis 3+ 03/20/22 06:20: Sodium 138, Potassium 3.8, Chloride 100, Carbon Dioxide 32.0, Anion Gap 6, BUN 17, Creatinine 3.66 H, Estim Creat Clear Calc 16.30, Est GFR (MDRD) Af Amer 21 L, Est GFR (MDRD) Non-Af 17 L, BUN/Creatinine Ratio 4.6 L, Glucose 79, Calcium 8.0 L, Total Bilirubin 0.50, AST 19, ALT 17, Alkaline Phosphatase 95, Total Protein 5.5 L, Albumin 2.1 L, Globulin 3.4, Albumin/Globulin Ratio 0.6 L Charges/Coding Visit Charges Inpatient E&M: 16641 Subs Hosp L2
[2022-03-20] MEDS: Montelukast 10 MG Tablet PO (22:20)
[2022-03-20] MEDS: Gabapentin 100 MG Capsule 200 MG PO (22:20)
[2022-03-21] VITALS (12 sets, daily range): BP systolic 77–110; BP diastolic 20–55; PULSE 70–79; RESP 16–21; TEMP 36.4–36.9; O2SAT 95–99
[2022-03-21] MEDS: Levothyroxine 50 MCG Tablet PO (03:53)
[2022-03-21 05:15] LABS: Absolute Lymphocyte Count 0.58 X10^3/uL (0.83-4.51); Absolute Neutrophil Count 4.8 X10^3/uL (2.0-7.7); Basophil# 0.06 X10^3/uL; Basophil% 0.9 % (0-1); Eosinophil# 0.67 X10^3/uL; Eosinophils% 9.7 % (0-5); Hematocrit 25.2 % (40-54); Hemoglobin 7.7 g/dL (13.0-16.5); Lymphocyte # 0.58 X10^3/ul (0.83-4.51); Lymphocyte % 8.4 % (19-41); Mean Corp Hgb Conc 30.6 g/dL (32-36); Mean Corpuscular Hgb 30.7 pg (27.0-32.0); Mean Corpuscular Volume 100.4 fL (80-94); Mean Platelet Vol. 8.6 fl (6.2-12.0); Monocyte# 0.76 X10^3/uL; NRBC Flagged by Analyzer 0 % (0-5); Neutrophil % 69.7 % (47-70); POSITIVE DIFFERENTIAL YES; POSITIVE MORPHOLOGY YES; Platelet Count 198 K/mm3 (150-450); RBC Distribution Width CV 18.9 % (11.6-14.6); RBC Distribution Width SD 68.8 fl (35.1-43.9); Red Blood Count 2.51 M/mm3 (4.6-6.2); White Blood Count 6.9 K/mm3 (4.4-11.0)
[2022-03-21 05:28] LABS: Differential Indicated SCAN CRITERIA MET
[2022-03-21 06:48] LABS: ALB/GLOB Ratio 0.7 RATIO (0.9-2.4); AST(SGOT) 18 U/L (15-37); Alanine Aminotransfer ALT/SGPT 15 U/L (16-61); Albumin, Serum 2.3 g/dL (3.2-5.0); Alkaline Phosphatase 95 U/L (45-117); Anion Gap 8 (5-15); BUN 22 mg/dL (7-18); BUN/Creat Ratio 4.8 RATIO (10-20); Calcium,Total 8.3 mg/dL (8.5-10.1); Chloride 97 mmol/L (98-107); Creatinine, Serum 4.57 mg/dL (0.70-1.30); EST Glomerular Filtration Rate 13 mL/min (>60); Est Glom Filt Rate - Afr Amer 16 mL/min (>60); Estimated Creatinine Clearance 13.06 ml/min; Globulin 3.5 g/dL (2.2-4.2); Glucose 75 mg/dL (74-106); Potassium 3.6 mmol/L (3.5-5.1); Protein, Total 5.8 g/dL (6.4-8.2); Sodium Level 135 mmol/L (136-145)
[2022-03-21] MEDS: Ipratropium/Albuterol Sulfate 3 ML AMPUL.NEB INHALATION ×2 (07:08→19:31)
[2022-03-21 07:10] LABS: Differential Comment SCANNED
[2022-03-21] MEDS: Midodrine HCl 5 MG Tablet 10 MG PO ×2 (07:57→15:38)
[2022-03-21] MEDS: guaiFENesin 1,200 MG Tablet 1200 MG PO ×2 (07:57→22:38)
[2022-03-21] MEDS: Fluticasone 0.05% 1 SPRAY NASAL.SRY 2 SPRAY NASAL (07:57)
[2022-03-21] MEDS: Sertraline 50 MG Tablet PO (07:57)
[2022-03-21] MEDS: Allopurinol 100 MG Tablet PO (07:57)
[2022-03-21] MEDS: Carvedilol 3.125 MG TABLET PO (07:57)
[2022-03-21] MEDS: Amiodarone 200 MG Tablet 100 MG PO (07:57)
--- NOTE | 2022-03-21 08:39 | PN.HOSP_ITS ---
Subjective Subjective Feeling fair today, had bowel movement did not note blood. For dialysis today. Objective Data Objective Data Vital Signs: Vital Signs Temp Pulse Resp BP Pulse Ox O2 Del Method O2 Flow Rate 98.4 F 77 18 109/51 L 99 Nasal Cannula 4 03/21/22 03:50 03/21/22 03:50 03/21/22 03:50 03/21/22 03:50 03/21/22 03:50 03/21/22 04:16 03/21/22 04:16 Oxygen Flow Rate (L/min) 4 Oxygen Delivery Method Nasal Cannula Weight: 84.277 kg Body Mass Index (BMI) 29.0 Intake & Output: Intake and Output for Last 24 Hours 03/19/22 03/20/22 03/21/22 23:59 23:59 23:59 Intake Total 1200 / 1700 964 / 1064 500 / 500 Output Total 0 / 0 0 / 0 Balance 1200 / 1700 964 / 1064 500 / 500 Lab / Micro Data Result Diagrams: 03/21/22 04:27 03/21/22 04:27 Labs: Laboratory Results - last 24 hr 03/19/22 12:00: Blood Type AB POSITIVE, Antibody Screen NEGATIVE, Crossmatch See Detail 03/21/22 04:27: WBC 6.9, RBC 2.51 L, Hgb 7.7 L, Hct 25.2 L, MCV 100.4 H, MCH 30.7, MCHC 30.6 L, RDW Std Deviation 68.8 H, RDW Coeff of Nick 18.9 H, Plt Count 198, MPV 8.6, Immature Gran % (Auto) 0.300, Neut % (Auto) 69.7, Lymph % (Auto) 8.4 L, [place] % (Auto) 11.0 H, Eos % (Auto) 9.7 H, Baso % (Auto) 0.9, Absolute Neuts (auto) 4.8, Absolute Lymphs (auto) 0.58 L, Nucleated RBC % 0, Differential Comment SCANNED 03/21/22 04:27: Sodium 135 L, Potassium 3.6, Chloride 97 L, Carbon Dioxide 30.0, Anion Gap 8, BUN 22 H, Creatinine 4.57 H, Estim Creat Clear Calc 13.06, Est GFR (MDRD) Af Amer 16 L, Est GFR (MDRD) Non-Af 13 L, BUN/Creatinine Ratio 4.8 L, Glucose 75, Calcium 8.3 L, Total Bilirubin 0.80, AST 18, ALT 15 L, Alkaline Phosphatase 95, Total Protein 5.8 L, Albumin 2.3 L, Globulin 3.5, Albumin/Globulin Ratio 0.7 L Radiography Diagnostic Testing: Radiology Impression Chest/Abdomen/Pelvis CT 03/20/22 12:06 IMPRESSION: Nonspecific diffuse interstitial thickening more severe in the lower lobes with small bilateral pleural effusion and consolidation of the lower lobes. No evidence for pulmonary metastasis. Irregular thickening of the barnes of the cecum and proximal ascending colon which may be consistent with neoplasm. No evidence for hepatic metastasis or retroperitoneal adenopathy Electronically Signed: Chu Celestin MD at 17:15 EST , Physical Exam Const alert and no apparent distress Constitutional Narrative: Oriented HEENT normocephalic and head/scalp atraumatic Eyes Eyes Narrative: EOM grossly intact, anicteric Neck supple Resp normal respiratory effort Cardio regular rate and regular rhythm GI soft to palpation, non-tender and non-distended Extremity Extremity Narrative: 1+ bilateral extremity Neuro moves all extremities Neuro Narrative: No overt focal deficits appreciated Psych Psych Narrative: Cooperative Assessment & Plan Assessment/Plan (1) Lower GI bleed: PLAN: Plan 76-year-old male presented 03/18/2022 after an abnormal capsule endoscopy. #Acute blood loss anemia secondary to lower GI bleed secondary to mass of the cecum Had maroon-colored stools for 2 weeks with blood also noted on his underwear Has required 1 unit packed red blood cells, on oral iron Eliquis held Had abnormal capsule endoscopy, colonoscopy 03/20 demonstrated cecal mass that was unresectable Pathology pending Surgery consulted CT 03/20 showed irregular thickening of the barnes of the cecum and proximal ascend ing colon with no evidence for hepatic metastasis or retroperitoneal adenopathy CEA pending Clear liquid diet #Coronary artery disease status post stenting and CABG On sammy, statin and #Paroxysmal atrial fibrillation Eliquis held Continue amiodarone, Coreg, statin #End-stage renal disease on HD Monday/Monday/Monday Continue midodrine Nephrology #Chronic hypoxic respiratory failure secondary to COPD 3.5 L of home O2 Continue inhalers #Hypothyroidism Continue Synthroid #DVT ppx: SCDs Kaylen Galindo MD Charges/Coding Visit Charges Inpatient E&M: 63167 Subs Hosp L2
--- NOTE | 2022-03-21 10:47 | PN.RENAL_ITS ---
Subjective Subjective Following for ESRD. Objective Data Objective Data Vital Signs: Vital Signs Temp Pulse Resp BP Pulse Ox O2 Del Method O2 Flow Rate 98.1 F 79 18 110/54 L 97 Nasal Cannula 3 03/21/22 09:06 03/21/22 09:06 03/21/22 09:06 03/21/22 09:06 03/21/22 09:11 03/21/22 09:11 03/21/22 09:11 Oxygen Flow Rate (L/min) 3 Oxygen Delivery Method Nasal Cannula Weight: 84.277 kg Body Mass Index (BMI) 29.0 Intake & Output: Intake and Output for Last 24 Hours 03/19/22 03/20/22 03/21/22 23:59 23:59 23:59 Intake Total 1200 / 1700 964 / 1064 500 / 500 Output Total 0 / 0 0 / 0 Balance 1200 / 1700 964 / 1064 500 / 500 Lab / Micro Data Result Diagrams: 03/22/22 06:40 03/22/22 06:40 Labs: Laboratory Results - last 24 hr 03/19/22 12:00: Blood Type AB POSITIVE, Antibody Screen NEGATIVE, Crossmatch See Detail 03/21/22 04:27: WBC 6.9, RBC 2.51 L, Hgb 7.7 L, Hct 25.2 L, MCV 100.4 H, MCH 30.7, MCHC 30.6 L, RDW Std Deviation 68.8 H, RDW Coeff of Nick 18.9 H, Plt Count 198, MPV 8.6, Immature Gran % (Auto) 0.300, Neut % (Auto) 69.7, Lymph % (Auto) 8.4 L, [place] % (Auto) 11.0 H, Eos % (Auto) 9.7 H, Baso % (Auto) 0.9, Absolute Neuts (auto) 4.8, Absolute Lymphs (auto) 0.58 L, Nucleated RBC % 0, Differential Comment SCANNED 03/21/22 04:27: Sodium 135 L, Potassium 3.6, Chloride 97 L, Carbon Dioxide 30.0, Anion Gap 8, BUN 22 H, Creatinine 4.57 H, Estim Creat Clear Calc 13.06, Est GFR (MDRD) Af Amer 16 L, Est GFR (MDRD) Non-Af 13 L, BUN/Creatinine Ratio 4.8 L, Glucose 75, Calcium 8.3 L, Total Bilirubin 0.80, AST 18, ALT 15 L, Alkaline Phosphatase 95, Total Protein 5.8 L, Albumin 2.3 L, Globulin 3.5, Albumin/Globulin Ratio 0.7 L Radiography Diagnostic Testing: Radiology Impression Chest/Abdomen/Pelvis CT 03/20/22 12:06 IMPRESSION: Nonspecific diffuse interstitial thickening more severe in the lower lobes with small bilateral pleural effusion and consolidation of the lower lobes. No evidence for pulmonary metastasis. Irregular thickening of the barnes of the cecum and proximal ascending colon which may be consistent with neoplasm. No evidence for hepatic metastasis or retroperitoneal adenopathy Electronically Signed: Chu Celestin MD at 17:15 EST , Physical Exam Narrative General: NAD HEENT: Normocephalic, atraumatic.? PERRLA, EOMI.? Hearing is intact.? Mucous membranes moist without erythema. Neck: Supple, no JVD. Heart: Normal S1, S2.? No rubs, murmurs or gallops. Lungs: Decreased breath sound at bases.? No wheezing. Abdomen: Normal bowel sounds, soft, nontender, no organomegaly, no guarding or rebound. Extremity: There is 2+ lower extremity edema.? There is a left lower arm AV graft which has good thrill and bruit. Assessment & Plan Assessment/Plan (1) ESRD (end stage renal disease) on dialysis: (2) Anemia: (3) Lower GI bleed: PLAN: Plan Impression/plan: The patient is a 76-year-old man with history of CAD, heart failure with reduced ejection fraction, hypertension, atrial fibrillation, MARCELO, gout, and hyperlipidemia. The patient is admitted with recurrent GI bleed. Prior GI bleed have been upper GI. However, he is found to have cecal mass which is being worked up by GI and general surgery. Nephrology is following for ESRD and dialysis management. ESRD. -The patient dialyzes at [facility] on MWF schedule. -I will arrange for dialysis today. -We will dialyze the patient on his usual outpatient dialysis prescription. We will not give heparin with dialysis since he has acute on chronic anemia due to GI bleed. Chronic hypotension -BP is reasonably controlled on current medications. He is on midodrine although he is also taking carvedilol for heart failure and CAD. -Monitor BP especially during dialysis. Anemia due to GI bleed and CKD. -The patient has had prior history of upper GI bleed due to gastric ulcer and angiodysplasia. -Current episode of GI bleed may be lower GI. The patient is found to have cecal mass on imaging. This is being worked up for etiology by GI and surgery. -We hold off on FERMIN until etiology of cecal mass is elucidated. FERMIN may promote some cancer growth.
[2022-03-21] MEDS: Ferrous Sulfate 325 MG Tablet PO ×2 (11:22→20:16)
--- NOTE | 2022-03-21 13:40 | CASEMGMT ---
Addendum entered by Mana Martin 03/21/22 14:29: HALEY BLANK back into pt room, pt states pt has palliative care. Contacted palliative via email at this time. Plan for pt is TBD pending possible surgery. Pt states she would like pt to be trf'd to [facility] should he need surgery. Addendum entered by Mana Martin 03/21/22 14:09: Pt receives dialysis M/W/F through [facility] with a chair time of 8:20am. Addendum entered by Mana Martin 03/21/22 14:02: TC to [facility], pt was dc'd on Mar 15 per Kelley. Original Note: HALEY BLANK Assessment: Face to Face with pt for initial transition planning/care coordination assessment. HALEY BLANK introduced self and role at [facility], pt voices understanding and consents to assessment. Pt is A/O x4 and answers all questions appropriately at this time. Pt lying in bed with oxygen on in no distress. Care providers, pharmacy, and demographics verified/updated. Admitting Dx:Acute GIB PCP:[facility] Specialists:myrtle Ramirez; Cardio in [place]; jhon Fam [facility] Insurance: [employer] Prescription Benefit: yes LNOK: Janae Gonzalez, Living Arrangements: Pt lives with in a single story home with 3 steps to enter with a grab bar. Pt reports he needs assist with bathing and dressing and his assists him. Pt denies concerns at home. Transportation: Pt transports him to medical appts. Pt denies concerns with transportation. DME/HHC/SNF: Pt has a FWW, electric scooter, walk in shower and shower chair at home. Pt also has oxygen through [employer] with portable tanks to bring in upon dc. Pt states he wears 3.5 liters continuous. Pt states he has had [facility]HC in the past and is not sure if they are still coming. He states he also has had [facility] in the past. Pt denies SNF stays. Pt states no concerns with going home at time of dc. Pt denies need for home therapy. Pt states he has a stepdown from [facility] but is unsure of what that is and is requesting this HALEY BLANK come back when his is present in room. Pt states no further concerns/needs. CM to follow. Advised pt to ask CM if any further question/concerns/needs arise, voices understanding. Pt Goal: Home Plan: Home
--- NOTE | 2022-03-21 13:52 | PN.SURG_ITS ---
Subjective Subjective Patient seen and examined during AM rounds. He is resting comfortably with his at bedside. They report several more liquidy bowel movements overnight, but no clear signs of blood. Patient's does note that it was dark. Patient denies any abdominal discomfort this morning. Objective Data Objective Data Vital Signs: Vital Signs Temp Pulse Resp BP Pulse Ox O2 Del Method O2 Flow Rate 98.1 F 79 18 110/54 L 97 Nasal Cannula 3 03/21/22 09:06 03/21/22 09:06 03/21/22 09:06 03/21/22 09:06 03/21/22 09:11 03/21/22 09:11 03/21/22 09:11 Oxygen Flow Rate (L/min) 3 Oxygen Delivery Method Nasal Cannula Weight: 185 lb 12.8 oz Body Mass Index (BMI) 29.0 Intake & Output: Intake and Output for Last 24 Hours 03/19/22 03/20/22 03/21/22 23:59 23:59 23:59 Intake Total 1200 / 1700 964 / 1064 500 / 500 Output Total 0 / 0 0 / 0 Balance 1200 / 1700 964 / 1064 500 / 500 Lab / Micro Data Result Diagrams: 03/21/22 04:27 03/21/22 04:27 Labs: Laboratory Results - last 24 hr 03/19/22 12:00: Crossmatch See Detail 03/21/22 04:27: WBC 6.9, RBC 2.51 L, Hgb 7.7 L, Hct 25.2 L, MCV 100.4 H, MCH 30.7, MCHC 30.6 L, RDW Std Deviation 68.8 H, RDW Coeff of Nick 18.9 H, Plt Count 198, MPV 8.6, Immature Gran % (Auto) 0.300, Neut % (Auto) 69.7, Lymph % (Auto) 8.4 L, [place] % (Auto) 11.0 H, Eos % (Auto) 9.7 H, Baso % (Auto) 0.9, Absolute Neuts (auto) 4.8, Absolute Lymphs (auto) 0.58 L, Nucleated RBC % 0, Differential Comment SCANNED 03/21/22 04:27: Sodium 135 L, Potassium 3.6, Chloride 97 L, Carbon Dioxide 30.0, Anion Gap 8, BUN 22 H, Creatinine 4.57 H, Estim Creat Clear Calc 13.06, Est GFR (MDRD) Af Amer 16 L, Est GFR (MDRD) Non-Af 13 L, BUN/Creatinine Ratio 4.8 L, Glucose 75, Calcium 8.3 L, Total Bilirubin 0.80, AST 18, ALT 15 L, Alkaline Phosphatase 95, Total Protein 5.8 L, Albumin 2.3 L, Globulin 3.5, Albumin/Globulin Ratio 0.7 L Radiography Diagnostic Testing: Radiology Impression Chest/Abdomen/Pelvis CT 03/20/22 12:06 IMPRESSION: Nonspecific diffuse interstitial thickening more severe in the lower lobes with small bilateral pleural effusion and consolidation of the lower lobes. No evidence for pulmonary metastasis. Irregular thickening of the barnes of the cecum and proximal ascending colon which may be consistent with neoplasm. No evidence for hepatic metastasis or retroperitoneal adenopathy Electronically Signed: Chu Celestin MD at 17:15 EST Reading Location ID and State: [address] [place] [address] , Service support , Physical Exam Resp normal respiratory effort Resp Narrative: Nasal cannula in place GI GI Narrative: Nondistended, soft, nontender to palpation x4 quadrants Assessment & Plan Assessment/Plan (1) Mass of cecum: PLAN: Patient is a 76-year-old male, with extensive comorbidity, who is under evaluation for anemia and was diagnosed with a endoscopically unresectable cecal mass during diagnostic colonoscopy 03/20/2022. Patient denies any further clear evidence of bleeding overnight?although states that the fecal output was somewhat dark. He does appear to exhibit inappropriate rise in response to his transfused blood yesterday. I asked if he had heard the results of his re cent CT imaging and he states that he had not so this was reviewed in brief with he and his at bedside. I also reviewed our conversation yesterday and asked them if they had any further preferences with where his care would be undertaken going forward. I did share with them that I felt there leaning towards investigating care through [facility] was appropriate and shared with them my reservations about proceeding here given his medical complexity. We will plan to touch base with the remainder of patient's care team, but ultimately, we could consider initiating a referral through surgery to [facility] and involve necessary stakeholders. Given that patient has been dealing with this issue for months, if he would remain stable, could consider all of this to be done as an outpatient as I do not currently see an indication for inpatient to inpatient transfer. For the interim recommend: ? Follow-up ordered CEA level ? Follow-up patient's H&H stability after colonoscopy 03/20/2022 ? Follow-up pathology from colonoscopy biopsies ? Follow-up patient's concerns about facility capabilities Charges/Coding Visit Charges Inpatient E&M: 91104 Subs Hosp L2
--- NOTE | 2022-03-21 17:08 | PN_ITS ---
Subjective Subjective Patient underwent colonoscopy yesterday and was found to have a large cecal mass. The mass was biopsied and tattooed. Objective Data Objective Data Vital Signs: Vital Signs Temp Pulse Resp BP Pulse Ox O2 Del Method O2 Flow Rate 97.9 F 70 18 99/55 L 97 Nasal Cannula 3 03/21/22 14:20 03/21/22 14:20 03/21/22 14:20 03/21/22 14:20 03/21/22 14:20 03/21/22 14:20 03/21/22 14:20 Oxygen Flow Rate (L/min) 3 Oxygen Delivery Method Nasal Cannula Weight: 185 lb 12.8 oz Body Mass Index (BMI) 29.0 Intake & Output: Intake and Output for Last 24 Hours 03/19/22 03/20/22 03/21/22 23:59 23:59 23:59 Intake Total 1200 / 1700 964 / 1064 500 / 500 Output Total 0 / 0 0 / 0 Balance 1200 / 1700 964 / 1064 500 / 500 Lab / Micro Data Result Diagrams: 03/21/22 04:27 03/21/22 04:27 Labs: Laboratory Results - last 24 hr 03/21/22 04:27: WBC 6.9, RBC 2.51 L, Hgb 7.7 L, Hct 25.2 L, MCV 100.4 H, MCH 30.7, MCHC 30.6 L, RDW Std Deviation 68.8 H, RDW Coeff of Nick 18.9 H, Plt Count 198, MPV 8.6, Immature Gran % (Auto) 0.300, Neut % (Auto) 69.7, Lymph % (Auto) 8.4 L, [place] % (Auto) 11.0 H, Eos % (Auto) 9.7 H, Baso % (Auto) 0.9, Absolute Neuts (auto) 4.8, Absolute Lymphs (auto) 0.58 L, Nucleated RBC % 0, Differential Comment SCANNED 03/21/22 04:27: Sodium 135 L, Potassium 3.6, Chloride 97 L, Carbon Dioxide 30.0, Anion Gap 8, BUN 22 H, Creatinine 4.57 H, Estim Creat Clear Calc 13.06, Est GFR (MDRD) Af Amer 16 L, Est GFR (MDRD) Non-Af 13 L, BUN/Creatinine Ratio 4.8 L, Glu cose 75, Calcium 8.3 L, Total Bilirubin 0.80, AST 18, ALT 15 L, Alkaline Phosphatase 95, Total Protein 5.8 L, Albumin 2.3 L, Globulin 3.5, Albumin/Globulin Ratio 0.7 L Radiography Diagnostic Testing: Radiology Impression Chest/Abdomen/Pelvis CT 03/20/22 12:06 IMPRESSION: Nonspecific diffuse interstitial thickening more severe in the lower lobes with small bilateral pleural effusion and consolidation of the lower lobes. No evidence for pulmonary metastasis. Irregular thickening of the barnes of the cecum and proximal ascending colon which may be consistent with neoplasm. No evidence for hepatic metastasis or retroperitoneal adenopathy Electronically Signed: Chu Celestin MD at 17:15 EST , Physical Exam Const alert, oriented x3 and no apparent distress Constitutional Narrative: Pale complexion General Appearance: cooperative Resp normal respiratory effort GI GI Narrative: No scars, nondistended, soft and nontender to palpation x4 quadrants. No visible or palpable herniation. Assessment & Plan Assessment/Plan (1) Mass of cecum: PLAN: Large mass in the cecum and ascending colon. This was confirmed by CT scan of the chest abdomen and pelvis. There was no sign of metastasis on his imaging. He will need referral to oncology. Appreciate surgical consultation (2) Anemia: PLAN: . Anemia secondary to GI bleed in the setting of large cecal mass likely colon cancer. Awaiting biopsies. We will draw a CEA level. Charges/Coding Visit Charges Inpatient E&M: 18597 Subs Hosp L3
[2022-03-21] MEDS: Gabapentin 100 MG Capsule 200 MG PO (22:38)
[2022-03-21] MEDS: Montelukast 10 MG Tablet PO (22:39)
[2022-03-22] VITALS (10 sets, daily range): BP systolic 96–145; BP diastolic 43–98; PULSE 74–100; RESP 18; TEMP 36.6–37.1; O2SAT 93–99
[2022-03-22] MEDS: Levothyroxine 50 MCG Tablet PO (06:02)
[2022-03-22 07:21] LABS: Absolute Lymphocyte Count 0.61 X10^3/uL (0.83-4.51); Absolute Neutrophil Count 4.3 X10^3/uL (2.0-7.7); Basophil# 0.07 X10^3/uL; Basophil% 1.1 % (0-1); Eosinophils% 10.7 % (0-5); Hematocrit 24.9 % (40-54); Hemoglobin 7.6 g/dL (13.0-16.5); Lymphocyte # 0.61 X10^3/ul (0.83-4.51); Lymphocyte % 9.3 % (19-41); Mean Corp Hgb Conc 30.5 g/dL (32-36); Mean Corpuscular Hgb 30.5 pg (27.0-32.0); Mean Platelet Vol. 8.3 fl (6.2-12.0); Monocyte# 0.87 X10^3/uL; Monocyte% 13.3 % (0-10); NRBC Flagged by Analyzer 0 % (0-5); Neutrophil # 4.27 X10^3/uL (2.7-7.7); Neutrophil % 65.3 % (47-70); POSITIVE MORPHOLOGY YES; Platelet Count 171 K/mm3 (150-450); RBC Distribution Width CV 18.7 % (11.6-14.6); Red Blood Count 2.49 M/mm3 (4.6-6.2); White Blood Count 6.5 K/mm3 (4.4-11.0)
[2022-03-22 07:32] LABS: Differential Indicated SCAN CRITERIA MET
[2022-03-22 07:48] LABS: Anion Gap 6 (5-15); BUN 14 mg/dL (7-18); BUN/Creat Ratio 4.3 RATIO (10-20); Calcium,Total 7.9 mg/dL (8.5-10.1); Chloride 100 mmol/L (98-107); Creatinine, Serum 3.27 mg/dL (0.70-1.30); EST Glomerular Filtration Rate 20 mL/min (>60); Est Glom Filt Rate - Afr Amer 24 mL/min (>60); Estimated Creatinine Clearance 18.25 ml/min; Glucose 92 mg/dL (74-106); Potassium 3.7 mmol/L (3.5-5.1); Sodium Level 138 mmol/L (136-145)
[2022-03-22] MEDS: Amiodarone 200 MG Tablet 100 MG PO (08:44)
[2022-03-22] MEDS: Carvedilol 3.125 MG TABLET PO (08:44)
[2022-03-22] MEDS: guaiFENesin 1,200 MG Tablet 1200 MG PO ×2 (08:44→22:22)
[2022-03-22] MEDS: Fluticasone 0.05% 1 SPRAY NASAL.SRY 2 SPRAY NASAL (08:45)
[2022-03-22] MEDS: Sertraline 50 MG Tablet PO ×2 (08:45)
[2022-03-22] MEDS: Allopurinol 100 MG Tablet PO (08:46)
[2022-03-22 09:04] LABS: Anisocytosis 2+; Differential Comment SCANNED; Hypochromasia 1+; Macrocytosis 1+; Microcytosis 1+
[2022-03-22] MEDS: Ferrous Sulfate 325 MG Tablet PO ×2 (11:39→16:29)
--- NOTE | 2022-03-22 12:06 | PCM.PN.SRG ---
Subjective Subjective Patient seen and examined during AM rounds. He is found sleeping in bed. He denies any signs of bleeding with bowel movements overnight. He denies any abdominal discomfort. Objective Data Objective Data Vital Signs: Vital Signs Temp Pulse Resp BP Pulse Ox O2 Del Method O2 Flow Rate 98.8 F 74 18 109/56 L 93 Nasal Cannula 3 03/22/22 08:36 03/22/22 11:00 03/22/22 08:36 03/22/22 08:36 03/22/22 08:36 03/22/22 08:38 03/22/22 08:38 Oxygen Flow Rate (L/min) 3 Oxygen Delivery Method Nasal Cannula Weight: 185 lb 12.8 oz Body Mass Index (BMI) 29.0 Intake & Output: Intake and Output for Last 24 Hours 03/20/22 03/21/22 03/22/22 23:59 23:59 23:59 Intake Total 964 / 1064 500 / 500 1000 / 1000 Output Total 0 / 0 0 / 0 0 / 0 Balance 964 / 1064 500 / 500 1000 / 1000 Lab / Micro Data Result Diagrams: 03/22/22 06:40 03/22/22 06:40 Labs: Laboratory Results - last 24 hr 03/22/22 06:40: WBC 6.5, RBC 2.49 L, Hgb 7.6 L, Hct 24.9 L, MCV 100.0 H, MCH 30.5, MCHC 30.5 L, RDW Std Deviation 69.0 H, RDW Coeff of Nick 18.7 H, Plt Count 171, MPV 8.3, Immature Gran % (Auto) 0.300, Neut % (Auto) 65.3, Lymph % (Auto) 9.3 L, [place] % (Auto) 13.3 H, Eos % (Auto) 10.7 H, Baso % (Auto) 1.1 H, Absolute Neuts (auto) 4.3, Absolute Lymphs (auto) 0.61 L, Nucleated RBC % 0, Differential Comment SCANNED, Hypochromasia 1+, Anisocytosis 2+, Microcytosis 1+, Macrocytosis 1+ 03/22/22 06:40: Sodium 138, Potassium 3.7, Chloride 100, Carbon Dioxide 32.0, Anion Gap 6, BUN 14, Creatinine 3.27 H, Estim Creat Clear Calc 18.25, Est GFR (MDRD) Af Amer 24 L, Est GFR (MDRD) Non-Af 20 L, BUN/Creatinine Ratio 4.3 L, Glucose 92, Calcium 7.9 L Physical Exam Const oriented x3 and no apparent distress Resp normal respiratory effort GI GI Narrative: Nondistended, soft, nontender to palpation x4 quadrants Assessment & Plan Assessment/Plan (1) Mass of cecum: PLAN: Patient is a 76-year-old male, with extensive comorbidity, who is under evaluation for anemia and was diagnosed with a endoscopically unresectable cecal mass during diagnostic colonoscopy 03/20/2022. Patient denies any further clear evidence of bleeding overnight. Correction to yesterday's note*: Patient experienced an appropriate rise in his hemoglobin. This level remains stable today. He does not appear to be symptomatic from his anemia. The surgical group wound of [facility] was contacted and a referral with patient's clinicals was sent regarding patient's case for consideration of outpatient consultation to discuss surgery. For the interim recommend: ? Follow-up ordered CEA level ? Continue to follow-up patient's H&H stability after colonoscopy 03/20/2022 ? Follow-up pathology from colonoscopy biopsies Charges/Coding Visit Charges Inpatient E&M: 89357 Subs Hosp L2
[2022-03-22] MEDS: Ipratropium/Albuterol Sulfate 3 ML AMPUL.NEB INHALATION ×2 (13:08→19:36)
--- NOTE | 2022-03-22 13:23 | PCM.PN.HOSP ---
Subjective Subjective Reports feeling much better today, breathing well, did have a fall overnight when he tried to reach too far while he was on the commode but denies any injury. Denies any blood in his stool. Energy improving Objective Data Objective Data Vital Signs: Vital Signs Temp Pulse Resp BP Pulse Ox O2 Del Method O2 Flow Rate 98.8 F 74 18 109/56 L 93 Nasal Cannula 3 03/22/22 08:36 03/22/22 11:00 03/22/22 08:36 03/22/22 08:36 03/22/22 08:36 03/22/22 08:38 03/22/22 08:38 Oxygen Flow Rate (L/min) 3 Oxygen Delivery Method Nasal Cannula Weight: 84.277 kg Body Mass Index (BMI) 29.0 Intake & Output: Intake and Output for Last 24 Hours 03/20/22 03/21/22 03/22/22 23:59 23:59 23:59 Intake Total 964 / 1064 500 / 500 1000 / 1000 Output Total 0 / 0 0 / 0 0 / 0 Balance 964 / 1064 500 / 500 1000 / 1000 Lab / Micro Data Result Diagrams: 03/22/22 06:40 03/22/22 06:40 Labs: Laboratory Results - last 24 hr 03/22/22 06:40: WBC 6.5, RBC 2.49 L, Hgb 7.6 L, Hct 24.9 L, MCV 100.0 H, MCH 30.5, MCHC 30.5 L, RDW Std Deviation 69.0 H, RDW Coeff of Nick 18.7 H, Plt Count 171, MPV 8.3, Immature Gran % (Auto) 0.300, Neut % (Auto) 65.3, Lymph % (Auto) 9.3 L, [place] % (Auto) 13.3 H, Eos % (Auto) 10.7 H, Baso % (Auto) 1.1 H, Absolute Neuts (auto) 4.3, Absolute Lymphs (auto) 0.61 L, Nucleated RBC % 0, Differential Comment SCANNED, Hypochromasia 1+, Anisocytosis 2+, Microcytosis 1+, Macrocytosis 1+ 03/22/22 06:40: Sodium 138, Potassium 3.7, Chloride 100, Carbon Dioxide 32.0, Anion Gap 6, BUN 14, Creatinine 3.27 H, Estim Creat Clear Calc 18.25, Est GFR (MDRD) Af Amer 24 L, Est GFR (MDRD) Non-Af 20 L, BUN/Creatinine Ratio 4.3 L, Glucose 92, Calcium 7.9 L Physical Exam Const alert and no apparent distress Constitutional Narrative: Oriented HEENT normocephalic and head/scalp atraumatic Eyes Eyes Narrative: EOM grossly intact, anicteric Neck supple Resp normal respiratory effort Cardio regular rate and regular rhythm GI soft to palpation, non-tender and non-distended Extremity Extremity Narrative: 1+ bilateral extremity Neuro moves all extremities Neuro Narrative: No overt focal deficits appreciated Psych Psych Narrative: Cooperative Assessment & Plan Assessment/Plan (1) Lower GI bleed: PLAN: Plan 76-year-old male presented 03/18/2022 after an abnormal capsule endoscopy. #Acute blood loss anemia secondary to lower GI bleed secondary to mass of the cecum Had maroon-colored stools for 2 weeks with blood also noted on his underwear Has required 1 unit packed red blood cells, on oral iron Eliquis held Had abnormal capsule endoscopy, colonoscopy 03/20 demonstrated cecal mass that was unresectable Pathology pending Surgery consulted CT 03/20 showed irregular thickening of the barnes of the cecum and proximal ascending colon with no evidence for hepatic metastasis or retroperitoneal adenopathy CEA pending 03/22: Outpatient referral to [facility] pending. Discussed with surgery and with his cardiac history transfusion threshold would optimally be 8, will transfuse another unit of blood, no active jj bleeding at this time. Surgery and GI following. Continue to trend hemoglobin, pathology pending for cecal mass. Will need to follow with oncology as an outpatient #Coronary artery disease status post stenting and CABG On sammy, statin Has allg to aspirin resported #Paroxysmal atrial fibrillation Eliquis held Continue amiodarone, Coreg, statin #End-stage renal disease on HD Monday/Monday/Monday Continue midodrine Nephrology #Chronic hypoxic respiratory failure secondary to COPD 3.5 L of home O2 Continue inhalers #Hypothyroidism Continue Synthroid #DVT ppx: SCDs Kaylen Galindo MD Charges/Coding Visit Charges Inpatient E&M: 11031 Subs Hosp L2
--- NOTE | 2022-03-22 16:21 | PCM.PN.REN ---
Subjective Subjective Following for ESRD. The patient tolerated dialysis well yesterday. There was no cramping. He denies chest pain, shortness of breath, or nausea. There is no abdominal pain. Objective Data Objective Data Vital Signs: Vital Signs Temp Pulse Resp BP Pulse Ox O2 Del Method O2 Flow Rate 98.8 F 82 18 109/56 L 93 Nasal Cannula 3 03/22/22 08:36 03/22/22 13:28 03/22/22 13:28 03/22/22 08:36 03/22/22 08:36 03/22/22 14:59 03/22/22 14:59 Oxygen Flow Rate (L/min) 3 Oxygen Delivery Method Nasal Cannula Weight: 84.277 kg Body Mass Index (BMI) 29.0 Intake & Output: Intake and Output for Last 24 Hours 03/20/22 03/21/22 03/22/22 23:59 23:59 23:59 Intake Total 964 / 1064 500 / 500 1000 / 1000 Output Total 0 / 0 0 / 0 0 / 0 Balance 964 / 1064 500 / 500 1000 / 1000 Lab / Micro Data Result Diagrams: 03/22/22 06:40 03/22/22 06:40 Labs: Laboratory Results - last 24 hr 03/22/22 06:40: WBC 6.5, RBC 2.49 L, Hgb 7.6 L, Hct 24.9 L, MCV 100.0 H, MCH 30.5, MCHC 30.5 L, RDW Std Deviation 69.0 H, RDW Coeff of Nick 18.7 H, Plt Count 171, MPV 8.3, Immature Gran % (Auto) 0.300, Neut % (Auto) 65.3, Lymph % (Auto) 9.3 L, [place] % (Auto) 13.3 H, Eos % (Auto) 10.7 H, Baso % (Auto) 1.1 H, Absolute Neuts (auto) 4.3, Absolute Lymphs (auto) 0.61 L, Nucleated RBC % 0, Differential Comment SCANNED, Hypochromasia 1+, Anisocytosis 2+, Microcytosis 1+, Macrocytosis 1+ 03/22/22 06:40: Sodium 138, Potassium 3.7, Chloride 100, Carbon Dioxide 32.0, Anion Gap 6, BUN 14, Creatinine 3.27 H, Estim Creat Clear Calc 18.25, Est GFR (MDRD) Af Amer 24 L, Est GFR (MDRD) Non-Af 20 L, BUN/Creatinine Ratio 4.3 L, Glucose 92, Calcium 7.9 L Physical Exam Narrative General: NAD HEENT: Normocephalic, atraumatic.? PERRLA, EOMI.? Hearing is intact.? Mucous membranes moist without erythema. Neck: Supple, no JVD. Heart: Normal S1, S2.? No rubs, murmurs or gallops. Lungs: Decreased breath sound at bases.? No wheezing. Abdomen: Normal bowel sounds, soft, nontender, no organomegaly, no guarding or rebound. Extremity: There is 1+ lower extremity edema.? There is a left lower arm AV graft which has good thrill and bruit. Assessment & Plan Assessment/Plan (1) ESRD (end stage renal disease) on dialysis: (2) Anemia: (3) Lower GI bleed: PLAN: Plan Impression/plan: The patient is a 76-year-old man with history of CAD, heart failure with reduced ejection fraction, hypertension, atrial fibrillation, MARCELO, gout, and hyperlipidemia. The patient is admitted with recurrent GI bleed. Prior GI bleed have been upper GI. However, he is found to have cecal mass which is being worked up by GI and general surgery. Nephrology is following for ESRD and dialysis management. ESRD. -The patient dialyzes at [facility] on MWF schedule. -Continue MWF dialysis while he is in the hospital. No need for dialysis today. We will dialyze patient again tomorrow on his usual schedule. -We will not give heparin with dialysis since he has acute on chronic anemia due to GI bleed. Chronic hypotension -BP is reasonably controlled on current medications. He is on midodrine although he is also taking carvedilol for heart failure and CAD. -Monitor BP especially during dialysis. Anemia due to GI bleed and CKD. -The patient has had prior history of upper GI bleed due to gastric ulcer and angiodysplasia. -Current episode of GI bleed is lower GI. The patient is found to have cecal mass on imaging. This is being worked up for etiology by GI and surgery. Pathology is pending but is likely cancer. -We will hold off on FERMIN until etiology of cecal mass is elucidated. FERMIN may promote some cancer growth. Nephrology plan discussed with Dr. Galindo
--- NOTE | 2022-03-22 16:55 | PN_ITS ---
Subjective Subjective Patient feels about the same. He underwent successful hemodialysis without any problems. He has no signs of GI bleeding at this time. Objective Data Objective Data Vital Signs: Vital Signs Temp Pulse Resp BP Pulse Ox O2 Del Method O2 Flow Rate 98.8 F 82 18 109/56 L 93 Nasal Cannula 3 03/22/22 08:36 03/22/22 13:28 03/22/22 13:28 03/22/22 08:36 03/22/22 08:36 03/22/22 14:59 03/22/22 14:59 Oxygen Flow Rate (L/min) 3 Oxygen Delivery Method Nasal Cannula Weight: 185 lb 12.8 oz Body Mass Index (BMI) 29.0 Intake & Output: Intake and Output for Last 24 Hours 03/20/22 03/21/22 03/22/22 23:59 23:59 23:59 Intake Total 964 / 1064 500 / 500 1000 / 1000 Output Total 0 / 0 0 / 0 0 / 0 Balance 964 / 1064 500 / 500 1000 / 1000 Lab / Micro Data Result Diagrams: 03/22/22 06:40 03/22/22 06:40 Labs: Laboratory Results - last 24 hr 03/22/22 06:40: WBC 6.5, RBC 2.49 L, Hgb 7.6 L, Hct 24.9 L, MCV 100.0 H, MCH 30.5, MCHC 30.5 L, RDW Std Deviation 69.0 H, RDW Coeff of Nick 18.7 H, Plt Count 171, MPV 8.3, Immature Gran % (Auto) 0.300, Neut % (Auto) 65.3, Lymph % (Auto) 9.3 L, [place] % (Auto) 13.3 H, Eos % (Auto) 10.7 H, Baso % (Auto) 1.1 H, Absolute Neuts (auto) 4.3, Absolute Lymphs (auto) 0.61 L, Nucleated RBC % 0, Differential Comment SCANNED, Hypochromasia 1+, Anisocytosis 2+, Microcytosis 1+, Macrocytosis 1+ 03/22/22 06:40: Sodium 138, Potassium 3.7, Chloride 100, Carbon Dioxide 32.0, Anion Gap 6, BUN 14, Creatinine 3.27 H, Estim Creat Clear Calc 18.25, Est GFR (MDRD) Af Amer 24 L, Est GFR (MDRD) Non-Af 20 L, BUN/Creatinine Ratio 4.3 L, Glucose 92, Calcium 7.9 L Physical Exam Narrative General: NAD HEENT: Normocephalic, atraumatic.? PERRLA, EOMI.? Hearing is intact.? Mucous membranes moist without erythema. Neck: Supple, no JVD. Heart: Normal S1, S2.? No rubs, murmurs or gallops. Lungs: Decreased breath sound at bases.? No wheezing. Abdomen: Normal bowel sounds, soft, nontender, no organomegaly, no guarding or rebound. Extremity: There is 1+ lower extremity edema.? There is a left lower arm AV graft which has good thrill and bruit. Assessment & Plan Assessment/Plan (1) Mass of cecum: PLAN: Large mass in the cecum and ascending colon. This was confirmed by CT scan of the chest abdomen and pelvis. There was no sign of metastasis on his imaging. He will need referral to oncology. Appreciate surgical consultation (2) Anemia: PLAN: . Anemia secondary to GI bleed in the setting of large cecal mass likely colon cancer. Awaiting biopsies. We will draw a CEA level. Charges/Coding Visit Charges Inpatient E&M: 28745 Subs Hosp L2
[2022-03-22] MEDS: Gabapentin 100 MG Capsule 200 MG PO (22:22)
[2022-03-22] MEDS: Montelukast 10 MG Tablet PO (22:22)
[2022-03-23] VITALS (8 sets, daily range): BP systolic 96–112; BP diastolic 40–69; PULSE 68–77; RESP 12–20; TEMP 36.1–37.1; O2SAT 97–100
[2022-03-23] MEDS: Levothyroxine 50 MCG Tablet PO (05:02)
[2022-03-23 06:07] LABS: Absolute Lymphocyte Count 0.85 X10^3/uL (0.83-4.51); Basophil# 0.08 X10^3/uL; Basophil% 1.2 % (0-1); Eosinophil# 0.86 X10^3/uL; Eosinophils% 12.7 % (0-5); Hematocrit 29.4 % (40-54); Hemoglobin 8.9 g/dL (13.0-16.5); Lymphocyte # 0.85 X10^3/ul (0.83-4.51); Lymphocyte % 12.6 % (19-41); Mean Corp Hgb Conc 30.3 g/dL (32-36); Mean Corpuscular Hgb 30.1 pg (27.0-32.0); Mean Corpuscular Volume 99.3 fL (80-94); Mean Platelet Vol. 8.9 fl (6.2-12.0); Monocyte# 0.92 X10^3/uL; Monocyte% 13.6 % (0-10); NRBC Flagged by Analyzer 0 % (0-5); Neutrophil # 4.03 X10^3/uL (2.7-7.7); Neutrophil % 59.5 % (47-70); POSITIVE MORPHOLOGY YES; Platelet Count 186 K/mm3 (150-450); RBC Distribution Width SD 65.4 fl (35.1-43.9); Red Blood Count 2.96 M/mm3 (4.6-6.2); White Blood Count 6.8 K/mm3 (4.4-11.0)
[2022-03-23 06:31] LABS: Differential Indicated SCAN CRITERIA MET
[2022-03-23 06:34] LABS: Anisocytosis 1+; Macrocytosis 1+
[2022-03-23 06:57] LABS: ALB/GLOB Ratio 0.6 RATIO (0.9-2.4); AST(SGOT) 20 U/L (15-37); Alanine Aminotransfer ALT/SGPT 18 U/L (16-61); Albumin, Serum 2.3 g/dL (3.2-5.0); Alkaline Phosphatase 102 U/L (45-117); Anion Gap 8 (5-15); BUN 20 mg/dL (7-18); BUN/Creat Ratio 4.5 RATIO (10-20); Calcium,Total 8.2 mg/dL (8.5-10.1); Chloride 98 mmol/L (98-107); Creatinine, Serum 4.42 mg/dL (0.70-1.30); EST Glomerular Filtration Rate 14 mL/min (>60); Est Glom Filt Rate - Afr Amer 17 mL/min (>60); Globulin 3.7 g/dL (2.2-4.2); Glucose 83 mg/dL (74-106); Potassium 4.1 mmol/L (3.5-5.1); Sodium Level 136 mmol/L (136-145)
--- NOTE | 2022-03-23 07:42 | PN.HOSP_ITS ---
Objective Data Objective Data Vital Signs: Vital Signs Temp Pulse Resp BP Pulse Ox O2 Del Method O2 Flow Rate 98.8 F 72 18 104/43 L 99 Nasal Cannula 3 03/23/22 02:04 03/23/22 02:04 03/23/22 02:04 03/23/22 02:04 03/23/22 02:04 03/23/22 02:10 03/23/22 02:10 Oxygen Flow Rate (L/min) 3 Oxygen Delivery Method Nasal Cannula Weight: 84.277 kg Body Mass Index (BMI) 29.0 Intake & Output: Intake and Output for Last 24 Hours 03/21/22 03/22/22 03/23/22 23:59 23:59 23:59 Intake Total 500 / 500 1000 / 1100 600 / 600 Output Total 0 / 0 0 / 0 Balance 500 / 500 1000 / 1100 600 / 600 Lab / Micro Data Result Diagrams: 03/23/22 05:13 03/23/22 05:13 Labs: Laboratory Results - last 24 hr 03/19/22 12:00: Crossmatch See Detail 03/22/22 06:40: Differential Comment SCANNED, Hypochromasia 1+, Anisocytosis 2+, Microcytosis 1+, Macrocytosis 1+ 03/22/22 06:40: Sodium 138, Potassium 3.7, Chloride 100, Carbon Dioxide 32.0, Anion Gap 6, BUN 14, Creatinine 3.27 H, Estim Creat Clear Calc 18.25, Est GFR (MDRD) Af Amer 24 L, Est GFR (MDRD) Non-Af 20 L, BUN/Creatinine Ratio 4.3 L, Glucose 92, Calcium 7.9 L 03/22/22 19:58: Blood Type AB POSITIVE, Antibody Screen NEGATIVE, Crossmatch See Detail 03/23/22 05:13: WBC 6.8, RBC 2.96 L, Hgb 8.9 L, Hct 29.4 L, MCV 99.3 H, MCH 30.1, MCHC 30.3 L, RDW Std Deviation 65.4 H, RDW Coeff of Nick 18.0 H, Plt Count 186, MPV 8.9, Immature Gran % (Auto) 0.400, Neut % (Auto) 59.5, Lymph % (Auto) 12.6 L, [place] % (Auto) 13.6 H, Eos % (Auto) 12.7 H, Baso % (Auto) 1.2 H, Absolute Neuts (auto) 4.0, Absolute Lymphs (auto) 0.85, Nucleated RBC % 0, Anisocytosis 1+, Macrocytosis 1+ 03/23/22 05:13: Sodium 136, Potassium 4.1, Chloride 98, Carbon Dioxide 30.0, Anion Gap 8, BUN 20 H, Creatinine 4.42 H, Estim Creat Clear Calc 13.50, Est GFR (MDRD) Af Amer 17 L, Est GFR (MDRD) Non-Af 14 L, BUN/Creatinine Ratio 4.5 L, Glucose 83, Calcium 8.2 L, Total Bilirubin 0.70, AST 20, ALT 18, Alkaline Phosphatase 102, Total Protein 6.0 L, Albumin 2.3 L, Globulin 3.7, Albumin/Globulin Ratio 0.6 L
[2022-03-23] MEDS: Midodrine HCl 5 MG Tablet 10 MG PO (08:56)
--- NOTE | 2022-03-23 09:17 | PN.SURG_ITS ---
Subjective Subjective Patient evaluated this morning during rounds and again this afternoon with Dr. Pizano. Patient denies any abdominal pain, nausea, vomiting. He denies any blood in his stool or dark tarry stools. Objective Data Objective Data Vital Signs: Vital Signs Temp Pulse Resp BP Pulse Ox O2 Del Method O2 Flow Rate 98.0 F 74 18 112/58 L 99 Nasal Cannula 3.5 03/23/22 09:09 03/23/22 09:09 03/23/22 09:09 03/23/22 09:09 03/23/22 09:09 03/23/22 09:09 03/23/22 09:09 Oxygen Flow Rate (L/min) 3.5 Oxygen Delivery Method Nasal Cannula Weight: 191 lb 1.6 oz Body Mass Index (BMI) 29.0 Intake & Output: Intake and Output for Last 24 Hours 03/21/22 03/22/22 03/23/22 23:59 23:59 23:59 Intake Total 500 / 500 1000 / 1100 600 / 600 Output Total 0 / 0 0 / 0 Balance 500 / 500 1000 / 1100 600 / 600 Lab / Micro Data Result Diagrams: 03/23/22 05:13 03/23/22 05:13 Labs: Laboratory Results - last 24 hr 03/19/22 12:00: Crossmatch See Detail 03/22/22 19:58: Blood Type AB POSITIVE, Antibody Screen NEGATIVE, Crossmatch See Detail 03/23/22 05:13: WBC 6.8, RBC 2.96 L, Hgb 8.9 L, Hct 29.4 L, MCV 99.3 H, MCH 30.1, MCHC 30.3 L, RDW Std Deviation 65.4 H, RDW Coeff of Nick 18.0 H, Plt Count 186, MPV 8.9, Immature Gran % (Auto) 0.400, Neut % (Auto) 59.5, Lymph % (Auto) 12.6 L, [place] % (Auto) 13.6 H, Eos % (Auto) 12.7 H, Baso % (Auto) 1.2 H, Absolute Neuts (auto) 4.0, Absolute Lymphs (auto) 0.85, Nucleated RBC % 0, Anisocytosis 1+, Macrocytosis 1+ 03/23/22 05:13: Sodium 136, Potassium 4.1, Chloride 98, Carbon Dioxide 30.0, Anion Gap 8, BUN 20 H, Creatinine 4.42 H, Estim Creat Clear Calc 13.50, Est GFR (MDRD) Af Amer 17 L, Est GFR (MDRD) Non-Af 14 L, BUN/Creatinine Ratio 4.5 L, Glucose 83, Calcium 8.2 L, Total Bilirubin 0.70, AST 20, ALT 18, Alkaline Ph osphatase 102, Total Protein 6.0 L, Albumin 2.3 L, Globulin 3.7, Albumin/Globulin Ratio 0.6 L Physical Exam GI normal to inspection, nondistended, normoactive bowel sounds Assessment & Plan Assessment/Plan (1) Mass of cecum: PLAN: Dr. Pizano also evaluated this patient. 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 Due to patient's co- morbidities, it would be in the patient's best interest to go to a tertiary facility. Patient had bypass surgery at [place] and would like to proceed in that direction. Patient's information along with the CT scan images and pathology has been sent to [facility]. Patient has an appointment scheduled on the of this month to be evaluated and discuss surgery. Patient is stable from a surgical standpoint to be discharged. Patient has our office number if he were to need anything in the meantime. Charges/Coding Visit Charges Inpatient E&M: 03508 Subs Hosp L2
--- NOTE | 2022-03-23 10:34 | PCM.PN.REN ---
Subjective Subjective Following for ESRD and dialysis management. The patient seen during hemodialysis treatment. He denies chest pain, shortness of breath, or nausea. There is no abdominal pain. Objective Data Objective Data Vital Signs: Vital Signs Temp Pulse Resp BP Pulse Ox O2 Del Method O2 Flow Rate 98.0 F 74 18 112/58 L 99 Nasal Cannula 3.5 03/23/22 09:09 03/23/22 09:09 03/23/22 09:09 03/23/22 09:09 03/23/22 09:09 03/23/22 09:09 03/23/22 09:09 Oxygen Flow Rate (L/min) 3.5 Oxygen Delivery Method Nasal Cannula Weight: 86.682 kg Body Mass Index (BMI) 29.0 Intake & Output: Intake and Output for Last 24 Hours 03/21/22 03/22/22 03/23/22 23:59 23:59 23:59 Intake Total 500 / 500 1000 / 1100 600 / 600 Output Total 0 / 0 0 / 0 Balance 500 / 500 1000 / 1100 600 / 600 Lab / Micro Data Result Diagrams: 03/23/22 05:13 03/23/22 05:13 Labs: Laboratory Results - last 24 hr 03/19/22 12:00: Crossmatch See Detail 03/22/22 19:58: Blood Type AB POSITIVE, Antibody Screen NEGATIVE, Crossmatch See Detail 03/23/22 05:13: WBC 6.8, RBC 2.96 L, Hgb 8.9 L, Hct 29.4 L, MCV 99.3 H, MCH 30.1, MCHC 30.3 L, RDW Std Deviation 65.4 H, RDW Coeff of Nick 18.0 H, Plt Count 186, MPV 8.9, Immature Gran % (Auto) 0.400, Neut % (Auto) 59.5, Lymph % (Auto) 12.6 L, [place] % (Auto) 13.6 H, Eos % (Auto) 12.7 H, Baso % (Auto) 1.2 H, Absolute Neuts (auto) 4.0, Absolute Lymphs (auto) 0.85, Nucleated RBC % 0, Anisocytosis 1+, Macrocytosis 1+ 03/23/22 05:13: Sodium 136, Potassium 4.1, Chloride 98, Carbon Dioxide 30.0, Anion Gap 8, BUN 20 H, Creatinine 4.42 H, Estim Creat Clear Calc 13.50, Est GFR (MDRD) Af Amer 17 L, Est GFR (MDRD) Non-Af 14 L, BUN/Creatinine Ratio 4.5 L, Glucose 83, Calcium 8.2 L, Total Bilirubin 0.70, AST 20, ALT 18, Alkaline Phosphatase 102, Total Protein 6.0 L, Albumin 2.3 L, Globulin 3.7, Albumin/Globulin Ratio 0.6 L Physical Exam Narrative General: NAD HEENT: Normocephalic, atraumatic.? PERRLA, EOMI.? Hearing is intact.? Mucous membranes moist without erythema. Neck: Supple, no JVD. Heart: Normal S1, S2.? No rubs, murmurs or gallops. Lungs: Decreased breath sound at bases.? No wheezing. Abdomen: Normal bowel sounds, soft, nontender, no organomegaly, no guarding or rebound. Extremity: There is 1+ lower extremity edema.? There is a left lower arm AV graft which has good thrill and bruit. Assessment & Plan Assessment/Plan (1) ESRD (end stage renal disease) on dialysis: (2) Anemia: (3) Lower GI bleed: PLAN: Plan Impression/plan: The patient is a 76-year-old man with history of CAD, heart failure with reduced ejection fraction, hypertension, atrial fibrillation, MARCELO, gout, and hyperlipidemia. The patient is admitted with recurrent GI bleed. Prior GI bleed have been upper GI. However, he is found to have cecal mass which is being worked up by GI and general surgery. Nephrology is following for ESRD and dialysis management. ESRD. -The patient dialyzes at [facility] on MWF schedule. -Continue MWF dialysis while he is in the hospital. -I supervised the dialysis treatment today: F160 dialyzer was used. Blood flow 400 mL/min, dialysate flow 600 mL/min. 3K dialysate is used. Dialysis access is left lower arm AV fistula. He is tolerating dialysis well. -We will not give heparin with dialysis since he has acute on chronic anemia due to GI bleed. Chronic hypotension -BP is reasonably controlled on current medications. He is on midodrine although he is also taking carvedilol for heart failure and CAD. -Monitor BP especially during dialysis. Anemia due to GI bleed and CKD. -The patient has had prior history of upper GI bleed due to gastric ulcer and angiodysplasia. -Current episode of GI bleed is lower GI. The patient is found to have cecal mass on imaging. This is being worked up for etiology by GI and surgery. Pathology is pending but is likely cancer. -We will hold off on FERMIN until etiology of cecal mass is elucidated. FERMIN may promote some cancer growth. Nephrology plan will be discussed with Dr. Galindo
[2022-03-23 13:01] LABS: Hepatitis B Surface Antigen Non-Reactive (Nonreactive)
--- NOTE | 2022-03-23 13:01 | DIALYSIS ---
Hemodialysis complete with 3 liters fluid removed. Stasis obtained after needles removed. Pt tolerated treatment without difficulty.
[2022-03-23] MEDS: Ipratropium/Albuterol Sulfate 3 ML AMPUL.NEB INHALATION (13:21)
[2022-03-23] MEDS: guaiFENesin 1,200 MG Tablet 1200 MG PO (13:37)
[2022-03-23] MEDS: Ferrous Sulfate 325 MG Tablet PO (13:37)
[2022-03-23] MEDS: Allopurinol 100 MG Tablet PO (13:37)
[2022-03-23] MEDS: Fluticasone 0.05% 1 SPRAY NASAL.SRY 2 SPRAY NASAL (13:39)
[2022-03-23] MEDS: Amiodarone 200 MG Tablet 100 MG PO (15:35)
--- NOTE | 2022-03-23 16:35 | PN_ITS ---
Subjective Subjective Patient feels about the same.? He underwent successful hemodialysis without any problems.? He has no signs of GI bleeding at this time. He got the news that his biopsies did show adenocarcinoma. Objective Data Objective Data Vital Signs: Vital Signs Temp Pulse Resp BP Pulse Ox O2 Del Method O2 Flow Rate 97.7 F L 70 12 106/49 L 100 Nasal Cannula 3.5 03/23/22 14:24 03/23/22 14:27 03/23/22 14:24 03/23/22 14:24 03/23/22 14:24 03/23/22 14:27 03/23/22 14:27 Oxygen Flow Rate (L/min) 3.5 Oxygen Delivery Method Nasal Cannula Weight: 191 lb 1.6 oz Body Mass Index (BMI) 29.0 Intake & Output: Intake and Output for Last 24 Hours 03/21/22 03/22/22 03/23/22 23:59 23:59 23:59 Intake Total 500 / 500 1000 / 1100 600 / 600 Output Total 0 / 0 0 / 0 3000 / 3000 Balance 500 / 500 1000 / 1100 -2400 / -2400 Lab / Micro Data Result Diagrams: 03/23/22 05:13 03/23/22 05:13 Labs: Laboratory Results - last 24 hr 03/19/22 12:00: Crossmatch See Detail 03/22/22 19:58: Blood Type AB POSITIVE, Antibody Screen NEGATIVE, Crossmatch See Detail 03/23/22 05:13: WBC 6.8, RBC 2.96 L, Hgb 8.9 L, Hct 29.4 L, MCV 99.3 H, MCH 30.1, MCHC 30.3 L, RDW Std Deviation 65.4 H, RDW Coeff of Nick 18.0 H, Plt Count 186, MPV 8.9, Immature Gran % (Auto) 0.400, Neut % (Auto) 59.5, Lymph % (Auto) 12.6 L, [place] % (Auto) 13.6 H, Eos % (Auto) 12.7 H, Baso % (Auto) 1.2 H, Absolute Neuts (auto) 4.0, Absolute Lymphs (auto) 0.85, Nucleated RBC % 0, Anisocytosis 1+, Macrocytosis 1+ 03/23/22 05:13: Sodium 136, Potassium 4.1, Chloride 98, Carbon Dioxide 30.0, Anion Gap 8, BUN 20 H, Creatinine 4.42 H, Estim Creat Clear Calc 13.50, Est GFR (MDRD) Af Amer 17 L, Est GFR (MDRD) Non-Af 14 L, BUN/Creatinine Ratio 4.5 L, Glucose 83, Calcium 8.2 L, Total Bilirubin 0.70, AST 20, ALT 18, Alkaline Phosphatase 102, Total Protein 6.0 L, Albumin 2.3 L, Globulin 3.7, Albumin/Globulin Ratio 0.6 L 03/23/22 05:13: Hep Bs Antigen Non-Reactive Physical Exam Narrative General: NAD HEENT: Normocephalic, atraumatic.? PERRLA, EOMI.? Hearing is intact.? Mucous membranes moist without erythema. Neck: Supple, no JVD. Heart: Normal S1, S2.? No rubs, murmurs or gallops. Lungs: Decreased breath sound at bases.? No wheezing. Abdomen: Normal bowel sounds, soft, nontender, no organomegaly, no guarding or rebound. Extremity: There is 1+ lower extremity edema.? There is a left lower arm AV graft which has good thrill and bruit. Assessment & Plan Assessment/Plan (1) Mass of cecum: PLAN: Large mass in the cecum and ascending colon. This was confirmed by CT scan of the chest abdomen and pelvis. There was no sign of metastasis on his imaging. He will need referral to oncology. Appreciate surgical consultation (2) Anemia: PLAN: . Anemia secondary to GI bleed in the setting of large cecal mass secondary to colon cancer. Awaiting CEA level. He has a follow up on 04/05/2021 for surgical evaluation. Charges/Coding Visit Charges Inpatient E&M: 57164 Subs Hosp L2
--- NOTE | 2022-03-23 17:35 | NURSING ---
has appt at [place] on April 05
--- NOTE | 2022-03-23 18:16 | DS.PCM_ITS ---
Providers Date of Admission: 03/20/22 Date of Discharge: 03/23/22 Primary Care Physician: Dr. Zack Stacy MD Consultations 03/18/22 22:36 Consult: Gastroenterology Routine Consulting Provider: Khari Lynn Reason for Consult: Acute Anemia EMERGENT Consult: No Notified: Yes Date Notified: 03/18/22 Time Notified: 21:49 Method of Notification: ED Physician Initiated Method of Consult:: In-Person Comments:: dr lynn sent pt for adm. 03/19/22 16:22 Consult: Nephrology Routine Consulting Provider: Kirsty Ewing Reason for Consult: ESRD on HD EMERGENT Consult: No MD Notified: Yes Date Notified: 03/19/22 Time Notified: 16:22 Method of Notification: Answering Service Method of Consult:: Telemedicine Comments:: answering service spoke with enio 03/20/22 11:57 Consult: General Surgery Routine Consulting Provider: Андрей Pizano Reason for Consult: colon cancer EMERGENT Consult: No MD Notified: Yes Date Notified: 03/20/22 Time Notified: 11:58 Method of Notification: Verbal 03/20/22 15:43 Consult: General Surgery Routine Consulting Provider: Андрей Pizano Reason for Consult: Cecal mass EMERGENT Consult: No MD Notified: Yes Date Notified: 03/20/22 Time Notified: 15:43 Method of Notification: already saw patient Reason For Visit: ACUTE GI BLEED Diagnosis Discharge Diagnosis (1) Mass of cecum: Status: Acute Code(s): K63.89 - Other specified diseases of intestine (2) Anemia: Status: Acute Code(s): D64.9 - Anemia, unspecified Plan #Acute blood loss anemia secondary to lower GI bleed secondary to mass of the cecum #Invasive adenocarcinoma of the cecum #Coronary artery disease status post stenting and CABG #Paroxysmal atrial fibrillation #End-stage renal disease on HD Monday/Monday/Monday #Chronic hypoxic respiratory failure secondary to COPD #Hypothyroidism Medications at Discharge Home Medications allopurinol 100 mg tablet 100 mg PO DAILY GOUT 05/03/18 nitroglycerin 0.4 mg sublingual tablet 0.4 mg sublingual Q5-15M PRN chest pain 05/03/18 ferrous sulfate 325 mg (65 mg iron) tablet (iron) 65 mg PO BID supplement 11/09/20 sertraline 50 mg tablet 50 mg PO DAILY mood 11/09/20 amiodarone 200 mg tablet 100 mg PO DAILY heart 11/19/20 apixaban 5 mg tablet 5 mg PO BID blood thinner 11/19/20 rosuvastatin 10 mg tablet (Crestor) 10 mg PO QHS cholesterol 11/19/20 albuterol sulfate 2.5 mg/3 mL (0.083 %) solution for nebulization 2.5 mg in halation 4X/DAY PRN PRN COPD 11/23/20 ascorbic acid (vitamin C) 500 mg capsule,extended release (Vitamin C) 500 mg PO DAILY supplement 11/23/20 fluticasone propionate 50 mcg/actuation nasal spray,suspension 2 spray intranasal DAILY ALLERGIES #16 grams 04/06/21 glycopyrrolate 9 mcg-formoterol 4.8 mcg HFA aerosol inhaler (Bevespi Aerosphere) 2 puff inhalation BID PRN SOB #3 ea 07/12/21 gabapentin 100 mg capsule 200 mg PO QHS restless leg 11/04/21 midodrine 10 mg tablet 10 mg PO MOWEFR bp 11/04/21 vericiguat 2.5 mg tablet (Verquvo) 5 mg PO DAILY heart 11/04/21 levothyroxine 50 mcg tablet 50 mcg PO DAILY thyroid 12/13/21 montelukast 10 mg tablet 10 mg PO DAILY congestion 12/13/21 vitamin B complex-vitamin C-folic acid 0.8 mg tablet (Tawanna-Laura) 1 tab PO DAILY supplement 12/13/21 pantoprazole 40 mg tablet,delayed release 40 mg PO BID GERD 03/18/22 carvedilol 3.125 mg tablet 3.125 mg PO SuTuThSa@1000 #0 tabs 03/23/22 Hospital Course Procedures - (Colonoscopy, hemodialysis) Summary of Care Provided Minutes Spent on Discharge: 40 Hospital Course: Patient is a 76-year-old male with a history of BPH, end-stage renal disease on hemodialysis, COPD, coronary artery disease with stents in 2005 and bypass 2 years ago as well as atrial fibrillation who presented to [facility] 03/18/2022 when bleeding was found on a capsule endoscopy by Dr. Lynn's office. He was having maroon-colored stools for the past 2 weeks and hemoglobin was 7.8 on presentation though has been variable because he is in multiple GI bleeds. GI consulted, Eliquis and aspirin held. Colonoscopy demonstrated 5 mm polyp in the rectum which was removed with a cold snare and a tumor in the cecum which was biopsied which was shown to be invasive adenocarcinoma. Surgery service consulted at our institution felt that he was high risk for surgery here and would benefit from a tertiary center. Hemoglobin was stable and patient overall was stable so was deemed that this can be done as an outpatient. Patient follow-up with [facility] was scheduled on 04/05. He had a total of 2 units of packed red blood cells and was on oral iron, second 1 given due to his t hreshold being 8 for transfusion and not 7 given his history of coronary artery disease. On day of discharge he had not had any further bleeding, having bowel movements out difficulty, energy improving, shortness of breath at baseline, no chest pain, no abdominal pain. He was comfortable with discharge and outpatient scheduled follow-up. Discussed with surgery service, nephrology, gastroenterol ogy and patient cleared for DC. Discussed with GI about aspirin and Eliquis and it was recommended to hold aspirin but could resume Eliquis. Discussed at length with patient and his as far as risk and benefits and neck steps, after extensive discussion they are going to contact the manager winter office regarding the medications and their opinion on urgency of resuming versus holding pending this upcoming surgery which is reasonable. Given discharge was after 530 discussed with charge nurse about DC needs, she discussed with professor of social work in ER who did not think anything would need changed ordered but reported they would follow-up with the day team and no barriers to discharge noted. Discharge instructions as followed: *Please take this with you to your next doctors appointment* DISCHARGE INSTRUCTIONS PLEASE READ ?You are found to have cancer in your colon confirmed by biopsy, it will be important for you to establish with a cancer doctor.? Information will be provided for you on discharge for Dr. Jose Linder (ph [phone]).? Please call to schedule an establish care appointment. ?You were noted to have bleeding in your GI tract and your Eliquis and aspirin were held.? After discussing with GI it was deemed reasonable to resume your eliquis and continue to hold your aspirin. After discussing with you and your regarding risks/benefits/options ultimately it was decided to continue to hold both at this time and that you will contact your heart doctor to further decide on timing/decision of resuming your eliquis as well ? Recommend blood work (CBC) to monitor blood count in 3 to 5 days on an outpatient basis, please call your primary care physician's office upon discharge to obtain order for lab work. ?Please continue iron supplementation ?Please call the pediatrician active practice office upon discharge to schedule hospital follow-up appointment ?You will need to follow at [facility] for surgical evaluation with Dr. Margy Doty with [facility] located [address] [place] [address], (ph [phone]) on 04/05/2022, it will be very important that you make this appointment.? Please call to confirm time and with any questions ?Please continue with dialysis on Mondays, Wednesdays, Fridays and follow-up with nephrology as previously scheduled.? Can hold your carvedilol in the mornings of dialysis and please take your midodrine on Monday, Monday, Monday before dialysis. ?Would strongly advise that you follow with your heart doctor upon discharge, please call their office to schedule an appointment.? This will likely be requested prior to your surgery -Please call your primary care provider's office upon discharge to schedule a hospital follow up within 1 week. -For any concerning signs or symptoms please call 911 or proceed to the nearest emergency department Physical Exam Const alert and no apparent distress Constitutional Narrative: Oriented HEENT normocephalic and head/scalp atraumatic Eyes Eyes Narrative: EOM grossly intact, anicteric Neck supple Resp normal respiratory effort Cardio regular rate and regular rhythm GI soft to palpation, non-tender and non-distended Extremity Extremity Narrative: 1+ bilateral extremity Neuro moves all extremities Neuro Narrative: No overt focal deficits appreciated Psych Psych Narrative: Cooperative Weight / BMI Weight Weight: 86.682 kg Body Mass Index (BMI) 29.0 ABG / Lab / Microbiology Data Result Diagrams: 03/23/22 05:13 03/23/22 05:13 Laboratory: Laboratory Results - last 24 hr 03/19/22 12:00: Crossmatch See Detail 03/22/22 19:58: Blood Type AB POSITIVE, Antibody Screen NEGATIVE, Crossmatch See Detail 03/23/22 05:13: WBC 6.8, RBC 2.96 L, Hgb 8.9 L, Hct 29.4 L, MCV 99.3 H, MCH 30.1, MCHC 30.3 L, RDW Std Deviation 65.4 H, RDW Coeff of Nick 18.0 H, Plt Count 186, MPV 8.9, Immature Gran % (Auto) 0.400, Neut % (Auto) 59.5, Lymph % (Auto) 12.6 L, Dickey % (Auto) 13.6 H, Eos % (Auto) 12.7 H, Baso % (Auto) 1.2 H, Absolute Neuts (auto) 4.0, Absolute Lymphs (auto) 0.85, Nucleated RBC % 0, Anisocytosis 1+, Macrocytosis 1+ 03/23/22 05:13: Sodium 136, Potassium 4.1, Chloride 98, Carbon Dioxide 30.0, Anion Gap 8, BUN 20 H, Creatinine 4.42 H, Estim Creat Clear Calc 13.50, Est GFR (MDRD) Af Amer 17 L, Est GFR (MDRD) Non-Af 14 L, BUN/Creatinine Ratio 4.5 L, Glucose 83, Calcium 8.2 L, Total Bilirubin 0.70, AST 20, ALT 18, Alkaline Phosphatase 102, Total Protein 6.0 L, Albumin 2.3 L, Globulin 3.7, Albumin/Globulin Ratio 0.6 L 03/23/22 05:13: Hep Bs Antigen Non-Reactive D/C Instructions Discharge Diet: - (Renal diet) Meaningful Use Info Meaningful Use Diagnoses (Choose all that apply): None applicable Discharge Plan Admission Admit Date/Time: 03/20/22 19:01 Primary Reason for Your Visit: GI bleed Attending Provider: Kaylen Galindo Primary Care Provider: Zack Stacy Consulting Providers: Khari Lynn ; Epifanio Sawyer ; Kirsty Ewing ; Андрей Pizano ; Naa Gatica Instructions Patient Instructions: ED Lower GI Bleeding (Stable), ED Upper GI Bleeding (Stable) Additional Instructions / Restrictions: *Please take this with you to your next doctors appointment* DISCHARGE INSTRUCTIONS PLEASE READ ?You are found to have cancer in your colon confirmed by biopsy, it will be important for you to establish with a cancer doctor. Information will be provided for you on discharge for Dr. Jose Linder (ph [phone]). Please call to schedule an establish care appointment. ?You were noted to have bleeding in your GI tract and your Eliquis and aspirin were held. After discussing with GI it was deemed reasonable to resume your eliquis and continue to hold your aspirin. After discussing with you and your regarding risks/benefits/options ultimately it was decided to continue to hold both at this time and that you will contact your heart doctor to further decide on timing/decision of resuming your eliquis as well ? Recommend blood work (CBC) to monitor blood count in 3 to 5 days on an outpatient basis, please call your primary care physician's office upon discharge to obtain order for lab work. ?Please continue iron supplementation ?Please call the pediatrician active practice office upon discharge to schedule hospital follow-up appointment ?You will need to follow at [facility] for surgical evaluation with Dr. Margy Doty with [facility] located [address] [place] [address], (ph [phone]) on 04/05/2022, it will be very important that you make this appointment. Please call to confirm time and with any questions ?Please continue with dialysis on Mondays, Wednesdays, Fridays and follow-up with nephrology as previously scheduled. Can hold your carvedilol in the mornings of dialysis and please take your midodrine on Monday, Monday, Monday before dialysis. ?Would strongly advise that you follow with your heart doctor upon discharge, please call their office to schedule an appointment. This will likely be requested prior to your surgery -Please call your primary care provider's office upon discharge to schedule a hospital follow up within 1 week. -For any concerning signs or symptoms please call 911 or proceed to the nearest emergency department Discharge Orders/Prescriptions Prescriptions: New carvedilol 3.125 mg Tablet 3.125 mg PO SuTuThSa@1000 Qty: 0 0RF Continued allopurinol 100 mg tablet 100 mg PO DAILY nitroglycerin 0.4 mg tablet, sublingual 0.4 mg SUBLINGUAL Q5-15M PRN (Reason: chest pain) amiodarone 200 mg tablet 100 mg PO DAILY rosuvastatin [Crestor] 10 mg tablet 10 mg PO QHS sertraline 50 mg tablet 50 mg PO DAILY ferrous sulfate [iron] 325 mg (65 mg iron) tablet 65 mg PO BID fluticasone propionate 50 mcg/actuation spray,suspension 2 spray INTRANASAL DAILY Qty: 16 5RF gabapentin 100 mg capsule 200 mg PO QHS midodrine 10 mg tablet 10 mg PO MOWEFR Label Comments: per patient he takes before dialysis Rx Instructions: do not give last dose of day after 6PM or within 4 hrs of bedtime Verquvo 2.5 mg tablet 5 mg PO DAILY Label Comments: taking for 2 weeks Rx Instructions: must administer with a meal/food albuterol sulfate 2.5 mg /3 mL (0.083 %) solution for nebulization 2.5 mg inhalation 4X/DAY PRN PRN (Reason: COPD) Label Comments: USE 1 VIAL IN NEBULIZER EVERY 4 HOURS NEEDED FOR SHORTNESS OF BREATH OR WHEEZING ascorbic acid (vitamin C) [Vitamin C] 500 mg Capsule, Extended Release 500 mg PO DAILY levothyroxine 50 mcg tablet 50 mcg PO DAILY montelukast 10 mg tablet 10 mg PO DAILY Tawanna-Laura 0.8 mg tablet 1 tab PO DAILY Label Comments: TAKE 1 TABLET BY MOUTH ONCE DAILY pantoprazole 40 mg tablet,delayed release (DR/EC) 40 mg PO BID Bevespi Aerosphere 9-4.8 mcg HFA aerosol inhaler 2 puff INHALATION BID PRN (Reason: SOB) Qty: 3 3RF Held apixaban 5 mg tablet 5 mg PO BID Hold Instructions: Resume on 03/30/22. Hold until discussing with your manager winter Discontinued carvedilol [Coreg] 6.25 mg tablet 3.125 mg PO DAILY Rx Instructions: must administer with a meal/food guaifenesin [Mucinex] 600 mg tablet extended release 12hr 1,200 mg PO BID aspirin 81 mg Capsule 81 mg PO DAILY Rx Instructions: needs to be coated misoprostol 200 mcg tablet 200 mcg PO 4X/DAYCM Referrals / Follow Up: Margy Doty [Other] - 04/05/22 Kirsty Ewing MD [Med Staff - Consulting] - Jose Linder MD [Med Staff - Active Staff] - See Referral Note FriendKhari DO [Med Staff - Active Staff] - See Referral Note (Please call the pediatrician active practice office upon discharge to schedule hospital follow-up appointment) Zack Stacy MD [Primary Care Provider] - Within 1 Week Disposition Disposition (needs filled in before D/C Order can be placed): Home Health Service Charges/Coding Visit Charges Inpatient E&M: 48699 Disch Hosp >30min
--- NOTE | 2022-03-24 16:07 | CASEMGMT ---
TC to pt home, spoke with . States he is doing well at home. She denies need for HHC at this time. States pt showered and had a good breakfast and nap. She is aware to notify PCP should this change.
[2022-03-24 21:42] LABS: Carcinoembryonic Antigen 3.3 ng/mL (0.0-4.7)
== END 2022-03-23 18:47 | disposition home or self-care (01) | DRG 374 ==
LOC: ED 21:48 → MS3 22:22
PROVIDERS: Anesthesiology; Internal Medicine; Internal Medicine Gastroenterology; Internal Medicine Nephrology; Surgery; Admitting Provider Hospitalist; Emergency Provider Emergency Medicine; PCP Family Medicine; Visit Provider Internal Medicine
PROC: 0DJD8ZZ Inspection of Lower Intestinal Tract, Via Natural or Artificial Opening Endoscopic (ICD-10-PCS; CPT 45378; principal; 2022-03-20 09:00)
DX: C18.0 Malignant neoplasm of cecum (principal); N18.6 End stage renal disease; I13.2 Hypertensive heart and chronic kidney disease with heart failure and with stage 5 chronic kidney disease, or end stage renal disease; D62 Acute posthemorrhagic anemia; J96.11 Chronic respiratory failure with hypoxia; I50.22 Chronic systolic (congestive) heart failure; K92.2 Gastrointestinal hemorrhage, unspecified; D63.1 Anemia in chronic kidney disease; I95.89 Other hypotension; I48.0 Paroxysmal atrial fibrillation; Z99.2 Dependence on renal dialysis; J43.9 Emphysema, unspecified; M10.9 Gout, unspecified; K62.1 Rectal polyp; I25.10 Atherosclerotic heart disease of native coronary artery without angina pectoris; E78.00 Pure hypercholesterolemia, unspecified; E03.9 Hypothyroidism, unspecified; E87.6 Hypokalemia; D63.0 Anemia in neoplastic disease; G47.33 Obstructive sleep apnea (adult) (pediatric); I25.2 Old myocardial infarction; Z79.01 Long term (current) use of anticoagulants; Z87.891 Personal history of nicotine dependence; Z79.82 Long term (current) use of aspirin; Z95.1 Presence of aortocoronary bypass graft; Z79.899 Other long term (current) drug therapy; Z79.890 Hormone replacement therapy; Z99.81 Dependence on supplemental oxygen
CPT/HCPCS: 36415; 71260; 74177; 80048; 80053; 82378; 85014; 85018; 85025; 85610; 85730; 86850; 86900; 86901; 86920; 86922; 87340; 88305; 88313; 88341; 88342; 90937; 93005; 94640; 94762; 99281; J7030; J7040; J7120; P9016; Q9967; A4216; A4648; G0257

== ENCOUNTER → 2022-03-18 | Outpatient (CLI) | payer MEDICARE, OTHER, SELFPAY ==
[2022-03-18 14:19] LABS: Absolute Neutrophil Count 4.3 X10^3/uL (2.0-7.7); Basophil% 1.5 % (0-1); Eosinophil# 0.56 X10^3/uL; Eosinophils% 8.7 % (0-5); Hematocrit 25.7 % (40-54); Hemoglobin 7.6 g/dL (13.0-16.5); Lymphocyte % 9.3 % (19-41); Mean Corp Hgb Conc 29.6 g/dL (32-36); Mean Corpuscular Hgb 30.4 pg (27.0-32.0); Mean Corpuscular Volume 102.8 fL (80-94); Mean Platelet Vol. 8.7 fl (6.2-12.0); Monocyte# 0.87 X10^3/uL; Monocyte% 13.5 % (0-10); NRBC Flagged by Analyzer 0 % (0-5); Neutrophil % 66.5 % (47-70); POSITIVE DIFFERENTIAL YES; POSITIVE MORPHOLOGY YES; Platelet Count 227 K/mm3 (150-450); RBC Distribution Width CV 18.7 % (11.6-14.6); RBC Distribution Width SD 67.6 fl (35.1-43.9); White Blood Count 6.5 K/mm3 (4.4-11.0)
[2022-03-18 14:22] LABS: Differential Indicated SCAN CRITERIA MET
[2022-03-18 14:51] LABS: Anisocytosis 2+; Differential Comment SCANNED
[2022-03-18 14:52] LABS: Target Cells 1+
== END | disposition home or self-care (01) ==
LOC: LAB 13:41
PROVIDERS: PCP Family Medicine; Visit Provider Nurse Practitioner Adult Health
DX: K92.2 Gastrointestinal hemorrhage, unspecified (principal)
CPT/HCPCS: 36415; 85025

== ENCOUNTER → 2022-06-14 | Outpatient (CLI) | payer MEDICARE, OTHER, SELFPAY ==
--- NOTE | 2022-06-14 08:16 | US_ITS ---
STUDY: SUPERFICIAL ULTRASOUND - BILATERAL PLEURAL SPACES. REASON FOR EXAM: Male, 76 years old. Recurrent pleural effusion, left TECHNIQUE: A superficial ultrasound was performed with real-time and static freitas-scale imaging. COMPARISON: None. FINDINGS: Not enough fluid for safe thoracentesis. US/Chest IMPRESSION: Not enough fluid for safe thoracentesis. Electronically Signed: Parminder Benton MD at 11:31 EDT ,
[2022-06-14 08:27] VITALS: BP 131/56; PULSE 95; RESP 18; TEMP 36.7; O2SAT 94
== END | disposition home or self-care (01) ==
LOC: US 08:15
PROVIDERS: PCP Family Medicine; Referring Provider Nurse Practitioner Acute Care; Visit Provider Nurse Practitioner Acute Care
DX: J90 Pleural effusion, not elsewhere classified (principal)
CPT/HCPCS: 76604

== ENCOUNTER → 2022-07-29 | Outpatient (CLI) | payer MEDICARE, OTHER, SELFPAY | END | disposition home or self-care (01) | LOC: MTLAB 08:34 | PROVIDERS: PCP Family Medicine; Referring Provider Nurse Practitioner Adult Health; Visit Provider Nurse Practitioner Adult Health | DX: R19.7 Diarrhea, unspecified (principal) | CPT/HCPCS: 87493 ==

== ENCOUNTER 2023-04-18 19:33 | Inpatient (IN) | payer MEDICARE, OTHER, SELFPAY ==
[2023-04-18] VITALS (30 sets, daily range): BP systolic 92–122; BP diastolic 58–74; PULSE 71–115; RESP 12–27; TEMP 36.3–37.4; O2SAT 87–99; BMI 27.3
[2023-04-18 20:20] LABS: Absolute Lymphocyte Count 0.49 X10^3/uL (0.83-4.51); Absolute Neutrophil Count 9.8 X10^3/uL (2.0-7.7); Basophil# 0.09 X10^3/uL; Basophil% 0.8 % (0-1); Eosinophil# 0.11 X10^3/uL; Hematocrit 34.3 % (40-54); Hemoglobin 10.9 g/dL (13.0-16.5); Lymphocyte # 0.49 X10^3/ul (0.83-4.51); Lymphocyte % 4.2 % (19-41); Mean Corp Hgb Conc 31.8 g/dL (32-36); Mean Corpuscular Hgb 34.4 pg (27.0-32.0); Mean Corpuscular Volume 108.2 fL (80-94); Mean Platelet Vol. 9.3 fl (6.2-12.0); Monocyte# 0.99 X10^3/uL; Monocyte% 8.6 % (0-10); NRBC Flagged by Analyzer 0 % (0-5); Neutrophil # 9.81 X10^3/uL (2.7-7.7); Neutrophil % 84.9 % (47-70); POSITIVE DIFFERENTIAL YES; Platelet Count 154 K/mm3 (150-450); RBC Distribution Width CV 14.6 % (11.6-14.6); RBC Distribution Width SD 58.5 fl (35.1-43.9); Red Blood Count 3.17 M/mm3 (4.6-6.2); White Blood Count 11.6 K/mm3 (4.4-11.0)
[2023-04-18] MEDS: 0.9% Normal Saline (1000mL) 1,000 ML 250 ML IV (20:21)
[2023-04-18] MEDS: Ondansetron 4 MG/2 ML Vial IV (20:21)
--- NOTE | 2023-04-18 20:34 | RAD_ITS ---
INDICATION: chest pain EXAMINATION/TECHNIQUE: X-RAY - XR Chest 1 View COMPARISON: 02/11/2022. FINDINGS: Increased interstitial markings. Tortuous and calcified thoracic aorta. The heart is mildly enlarged. Trace bilateral pleural effusions. No pneumothorax. Degenerative changes of the thoracic spine. RAD/Chest 1 View (Portable) IMPRESSION: Increased interstitial markings may represent edema and/or infection. Cardiomegaly with trace bilateral pleural effusions. Electronically Signed: Rich Juarez MD at 21:42 EST ,
[2023-04-18 20:38] LABS: Anion Gap 7 (5-15); BUN 36 mg/dL (7-18); BUN/Creat Ratio 7.8 RATIO (10-20); Calcium,Total 9.4 mg/dL (8.5-10.1); Chloride 97 mmol/L (98-107); Creatinine, Serum 4.61 mg/dL (0.70-1.30); EST Glomerular Filtration Rate 13 mL/min (>60); Est Glom Filt Rate - Afr Amer 16 mL/min (>60); Estimated Creatinine Clearance 14.36 ml/min; Glucose 127 mg/dL (74-106); Potassium 4.8 mmol/L (3.5-5.1); Sodium Level 135 mmol/L (136-145); Troponin-I HS 74 pg/mL (3.0-78.0)
[2023-04-18 20:48] LABS: Differential Indicated SCAN CRITERIA MET
[2023-04-18 20:49] LABS: Anisocytosis 1+; Hypochromasia 1+; Macrocytosis 1+; Platelet Estimate ADEQUATE (ADEQ); Red Cell Morphology N CHROM NORMAL (NORM C&C)
[2023-04-18 20:50] LABS: Ovalocyte RARE
--- OUTSIDE RECORDS SUMMARY | 2023-04-18 21:01 | XMS RPT_ITS | CCD ---
Author Name Unknown Address [address] [facility] [address] [place] [address] Organization [facility] Care Team Providers Care Diesel Service Technician Name Role Phone Zack Olmos Unavailable Raven Osullivan Unavailable Unavailable Zack Olmos Primary Care Provider Elise Justice Unavailable Unavailable Zack Olmos Primary Care Provider Zack Olmos MD Primary Care Provider Zack Olmos MD Primary Care Provider MYRA RIOS Attending Unavailable MYRA RIOS Referring Unavailable ZACK OLMOS Primary Care Unavailable LENIN RAMIREZ Referring Unavaila LENIN Puckett Attending Unavaila ZACK Carbajal Primary Care Unavailable Zack Olmos MD Primary Care Provider Lenin Ramirez MD Unavailable [phone] Sherry George DO Unavailable ZACK OLMOS Primary Care Unavailable ZACK OLMOS Referring Unavailable CHRISTIANE RINCON Attending Unavailabl e ZACK OLMOS Primary Care Unavailable SHERRY GEORGE Referring Unavailable ZACK OLMOS MD Primary Care Physician ZACK OLMOS Consulting Unavailable ZACK OLMOS Referring Unavailable PEARL BRADEN DO Admitting Unavailable PEARL BRADEN DO Primary Care Unavailable PEARL BRADEN DO Attending Unavailable PROVIDER, UNKNOWN Consulting Unavailable PROVIDER, UNKNOWN Consulting Unavailable PROVIDER, UNKNOWN Consulting Unavailable RILEY VICTOR MD Attending Unava ilable ZACK OLMOS Consulting Unavailable RILEY VICTOR MD Admitting Unava ilRILEY Huang MD Primary Care Unava ilable PROVIDER, UNKNOWN Consulting Unavailable PROVIDER, UNKNOWN Consulting Unavailable PROVIDER, UNKNOWN Consulting Unavailable BROWN, ZACK Admitting Unavailable BROWN, ZACK Primary Care Unavailable BROWN, ZACK Consulting Unavailable NICKOLAS, ZACK Attending Unavailable SHERRY GEORGE DO Referring Unavailable PROVIDER, UNKNOWN Consulting Unavailable PROVIDER, UNKNOWN Consulting Unavailable PROVIDER, UNKNOWN Consulting Unavailable BROWN, ZACK F Primary Care Unavailable SHERRY GEORGE Admitting Unavailable BROWN, ZACK F Primary Care Unavailable DAVLEATHA LENIN GIL Admitting Unavaila ble BROWN, ZACK F Primary Care Unavailable DAVLENIN VILLARREAL Admitting Unavaila ble BROWN, ZACK F Primary Care Unavailable SHERRY GEORGE Referring Unavailable Nickolas GONZALEZ, Zack Holly Unavailable Dr. Danish Corrales MD Unavailable [facility] Unavailable Laith GONZALEZ, Dr. Rivera ([facility]) A Unavail able Orthopedic Provider Unavailable Unavailable Miranda GONZALEZ, Dr. Echevarria Unavailable Medicine [facility], Pulmonary Unavailable Cardiology Provider Unavailable Unavailable Garrett GONZALEZ, Dr. Fulton Unavailable Dr. Riley Victor MD Unavailable James GONZALEZ, Dr. García Unavailable Emilie COSTA, Farideh Unavailable Vascular Surgeon Unavailable Unavailable Luiz GONZALEZ, Rosy Gonsales Unavailable Jose CORDAGE SALES REPRESENTATIVE, Lowell Unavailable Unavailable Elbert CORDAGE SALES REPRESENTATIVE, Laura E Unavailable Unavailable [place] CORDAGE SALES REPRESENTATIVE, Lesley C Unavailable Unavailable Corcoran CORDAGE SALES REPRESENTATIVE, Johnny Unavailable Unavailable Sanjeev GONZALEZ, Donaldo Herrera Unavailable Keenan MC, Edgar Gonsales Unavailable Keenan RN, Vania L Unavailable Unavail able Won CORDAGE SALES REPRESENTATIVE, Varsha Unavailable Unavailable Popeye DE LEON, Umu Herrera Unavailable Unavaila ble Marthey CORDAGE SALES REPRESENTATIVE, Lien Unavailable Unavailable Cedric CORDAGE SALES REPRESENTATIVE, Sravan Unavailable Unavailable [place] CORDAGE SALES REPRESENTATIVE, Rachel K Unavailable Unavai toya CORRALC, Yarely J Unavailable Konrad MUD TANK OPERATOR, Randi Unavailable Unavailable Isac CORDAGE SALES REPRESENTATIVE, Alejandrina L Unavailable Unavailab le Corby CORDAGE SALES REPRESENTATIVE, Rosy M Unavailable Unavailab le [place]emption CORDAGE SALES REPRESENTATIVE, Muna Engel Unavailable Unavailab angelita Obrien MA, Varsha Unavailable Unavailable Kelly GONZALEZ, Tip Herrera Unavailable Wedannielleerd CORDAGE SALES REPRESENTATIVE, Sandra Unavailable Unavailabl e Partha CORDAGE SALES REPRESENTATIVE, Marisela N Unavailable Unavaila ble Zaugg CORDAGE SALES REPRESENTATIVE, Raven Unavailable Unavailable Unavailable Unavailable SHERRY GEORGE Attending Unavailable BROWN, ZACK F Primary Care Unavailable SHERRY GEORGE Referring Unavailable SHERRY GEORGE Attending Unavailable BROWN, ZACK F Primary Care Unavailable SHERRY GEORGE Referring Unavailable DORISSHERRY Attending Unavailable BROWN, ZACK F Primary Care Unavailable SHERRY GEORGE Referring Unavailable BROWN, ZACK F Primary Care Unavailable DARLEEN DAVIS Unavailable SHERRY GEORGE Admitting Unavailable SHERRY GEORGE Attending Unavailable BROWN, ZACK F Primary Care Unavailable SHERRY GEORGE Attending Unavailable LENIN RAMRIEZ Attending Unavaila ble BROWN, ZACK F Primary Care Unavailable BROWN, ZACK F Primary Care Unavailable SHERRY GEORGE Attending Unavailable LENIN RAMIREZ Attending Unavaila ble BROWN, ZACK F Primary Care Unavailable DAVLENIN VILLARREAL Attending Unavaila ble BROWN, ZACK F Primary Care Unavailable BROWN, ZACK F Primary Care Unavailable SHERRY GEORGE Attending Unavailable LENIN RAMIREZ Admitting Unavaila ble DAVLENIN VILLARREAL Attending Unavaila ble BROWN, ZACK F Primary Care Unavailable SHERRY GEORGE Attending Unavailable SYSTEM, PROVIDER NOT IN Referring Unavaila ble BROWN, ZACK F Primary Care Unavailable BROWN, ZACK F Primary Care Unavailable SHERRY GEORGE Attending Unavailable Allergies Allergy Classification Reported Allergen(s) Allergy Type Date of Onset Reaction(s) Facility amLODIPine (10 sources) amLODIPine Drug Allergy 0 Itching [facility] Aspirin (10 sources) Aspirin Drug Allergy 5 [facility] Corticosteroids (7 sources) predniSONE Drug Allergy 1 [facility] Penicillins (antibiotic) (10 sources) Penicillins Drug Allergy 5 Other (See Comments) [facility] (20 sources) aspirin; Translations: [EC ASPIRIN] Propensity to adverse reactions to drug 5 [facility] (20 sources) Penicillins; Translations: [PENICILLINS] Propensity to adverse reactions to drug 5 Other (See Comments) [facility] (20 sources) amLODIPine; Translations: [AMLODIPINE] Drug Allergy 0 Itching [facility] (20 sources) Penicillins; Translations: [penicillins] Propensity to adverse reactions to drug 5 Other (See Comments), Prednisone (substance) [facility] (20 sources) predniSONE; Translations: [PREDNISONE] Drug Allergy 1 Other (See Comments) [facility] (20 sources) Penicillins Propensity to adverse reactions to drug 5 Other (See Comments) [facility] (20 sources) oxyCODONE; Translations: [OXYCODONE] Drug Allergy 3 GI Intolerance [facility] (9 sources) Aspirin; Translations: [aspirin] Drug Allergy [facility] (1 source) Indomethacin; Translations: [indomethacin] [facility] Allergy [facility] (1 source) rOPINIRole; Translations: [ropinirole] Drug Allergy [facility] (1 source) traZODone; Translations: [trazodone] Drug Allergy [facility] (1 source) amLODIPine Drug Allergy [facility] (1 source) Penicillin Drug Allergy [facility] (1 source) predniSONE Drug Allergy [facility] (1 source) Coating on Aspirin Drug allergy (disorder) [facility] (8 sources) Penicillin V Drug Allergy [facility], [facility]. Medications Current Medications Medication Drug Class(es) Dates Sig (Normalized) Sig (Original) albuterol 0.83 mg/ml inhalation solution (20 sources) beta2-Adrenergic Agonist Start: 11-24-2022 take 1 dose by inhalation every six hours as needed albuterol 2.5 mg/3 mL (0.083%) inhalation solution Dose : 2.5 mg = 3 mL, Inhalation, q6h, PRN Shortness of breath or wheezing, # 90 mL, 0 Refill(s) Start Date: 11/24/22 Status: Ordered Completed/Discontinued Medications Medication Drug Class(es) Dates Sig (Normalized) Sig (Original) acetaminophen 325 mg oral tablet (20 sources) Start: 01-19-2021 End: 01-29-2021 take 2 tablets by mouth every four hours as needed acetaminophen (TYLENOL) 325 MG tablet Take 2 (two) tablets (650 mg total) by mouth every 4 (four) hours as needed . 30 tablet 0 01/19/2021 01/29/2021 Active Problems Active Problems Problem Classification Problem Date Documented Da te Episodic/Chronic Acute bronchitis (20 sources) Acute bronchitis 07-06-2021 Episodic Acute myocardial infarction (20 sources) Myocardial infarction; Translations: [Non-ST elevation (NSTEMI) myocardial infarction] Onset: 1 09-06-2020 Chronic Administrative/social admission (20 sources) Dietary surveillance and counseling; Translations: [Repeated prescription] 07-06-2021 Episodic Allergic reactions (20 sources) Contact dermatitis; Translations: [Unspecified contact dermatitis, unspecified cause] 07-06-2021 Episodic Cancer of colon (20 sources) Malignant tumor of ascending colon; Translations: [Malignant neoplasm of ascending colon] Onset: 3 Resolved: 3 Chronic Cardiac dysrhythmias (20 sources) Paroxysmal ventricular tachycardia; Translations: [Ventricular tachycardia] Onset: 5 12-31-2014 Chronic Cardiac dysrhythmias (1 source) Tachyarrhythmia ; Translations: [Tachycardia, unspecified] Episodic Chronic kidney disease (20 sources) Chronic kidney disease; Translations: [Chronic kidney disease stage 4] Onset: 2 03-26-2020 Chronic Chronic obstructive pulmonary disease and bronchiectasis (20 sources) Chronic obstructive lung disease; Translations: [Chronic obstructive pulmonary disease, unspecified] Onset: 3 Chronic Chronic obstructive pulmonary disease and bronchiectasis (20 sources) Bronchitis; Translations: [Bronchitis, not specified as acute or chronic] 02-21-2018 Episodic Chronic ulcer of skin (19 sources) Pressure ulcer of unspecified site, unspecified stage; Translations: [Pressure ulcer, unspecified site] 03-27-2023 Chronic Congestive heart failure; nonhypertensive (20 sources) Congestive heart failure; Translations: [Chronic combined systolic (congestive) and diastolic (congestive) heart failure] Onset: 9 05-17-2018 Chronic Coronary atherosclerosis and other heart disease (20 sources) 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[place] artery; Translations: [Atherosclerotic heart disease of [place] coronary artery without angina pectoris] Onset: 5 12-30-2014 Chronic Deficiency and other anemia (16 sources) Anemia; Translations: [Anemia, unspecified] 11-30-2022 Episodic Disorders of lipid metabolism (20 sources) Hyperlipidemia; Translations: [Mixed hyperlipidemia] Onset: 9 05-03-2018 Chronic Esophageal disorders (20 sources) Gastroesophageal reflux disease; Translations: [Gastro-esophageal reflux disease without esophagitis] 11-30-2022 Chronic Essential hypertension (20 sources) Essential hypertension; Translations: [Essential (primary) hypertension] Onset: 5 12-30-2014 Chronic Gastrointestinal hemorrhage (20 sources) Gastrointestinal hemorrhage; Translations: [Gastrointestinal hemorrhage, unspecified] 11-30-2022 Episodic Genitourinary symptoms and ill-defined conditions (16 sources) Proteinuria; Translations: [Proteinuria, unspecified] 01-24-2012 Episodic Gout and other crystal arthropathies (20 sources) Gout; Translations: [Gout, unspecified] 11-30-2022 Chronic Hemorrhoids (8 sources) Hemorrhoids; Translations: [Unspecified hemorrhoids] 09-16-2016 Episodic Hyperplasia of prostate (20 sources) Benign prostatic hypertrophy with outflow obstruction; Translations: [Benign prostatic hyperplasia with lower urinary tract symptoms] 11-30-2022 Chronic Immunizations and screening for infectious disease (20 sources) Needs influenza immunization; Translations: [Encounter for immunization] 07-06-2021 Episodic Malaise and fatigue (10 sources) Asthenia; Translations: [Weakness] Episodic Malignant neoplasm without specification of site (1 source) Malignant adenomatous neoplasm; Translations: [Malignant (primary) neoplasm, unspecified] Chronic Miscellaneous mental health disorders (20 sources) Psychosexual dysfunction associated with inhibited sexual excitement; Translations: [Other sexual dysfunction not due to a substance or known physiological condition] 07-06-2021 Chronic Mood disorders (20 sources) Recurrent major depression; Translations: [Major depressive disorder, recurrent, unspecified] 11-30-2022 Chronic Mycoses (16 sources) Tinea corporis; Translations: [Tinea corporis] 06-16-2017 Episodic Nausea and vomiting (1 source) Nausea and vomiting; Translations: [Nausea with vomiting, unspecified] Episodic Nonspecific chest pain (8 sources) Chest pain; Translations: [Chest pain, unspecified] 03-24-2014 Episodic Osteoarthritis (16 sources) Osteoarthrosis, localized, primary, lower leg 01-29-2013 Chronic Other aftercare (19 sources) Patient encounter status; Translations: [Encounter for therapeutic drug level monitoring] Episodic Other aftercare (2 sources) Aftercare following surgery for neoplasm; Translations: [Aftercare following surgery for neoplasm] Onset: 3 Episodic Other aftercare (2 sources) Encounter for surgical aftercare following surgery on the digestive system; Translations: [Encounter for surgical aftercare following surgery on the digestive system] Onset: 3 Episodic Other aftercare (20 sources) Drug indicated; Translations: [Other mcfp (current) drug therapy] 07-06-2021 Episodic Other aftercare (16 sources) Post-discharge follow-up; Translations: [Encounter for follow-up examination after completed treatment for conditions other than malignant neoplasm] 11-30-2022 Episodic Other circulatory disease (1 source) Low blood pressure; Translations: [Hypotension, unspecified] Episodic Other circulatory disease (20 sources) Low blood pressure reading; Translations: [Nonspecific low blood-pressure reading] 11-30-2022 Episodic Other connective tissue disease (8 sources) Muscle pain; Translations: [Myalgia, unspecified site] 03-24-2014 Episodic Other connective tissue disease (16 sources) Pain in right hand; Translations: [Pain in right hand] 03-05-2013 Episodic Other connective tissue disease (8 sources) Tendinitis of elbow or forearm; Translations: [Other enthesopathies, not elsewhere classified] 02-18-2013 Episodic Other connective tissue disease (8 sources) Rotator cuff impingement syndrome; Translations: [Unspecified rotator cuff tear or rupture of unspecified shoulder, not specified as traumatic] 10-18-2011 Episodic Other hereditary and degenerative nervous system conditions (16 sources) Restless legs; Translations: [Restless legs syndrome] 11-30-2022 Chronic Other injuries and conditions due to external causes (16 sources) Injury of head; Translations: [Unspecified injury of head, initial encounter] 11-30-2022 Episodic Other lower respiratory disease (20 sources) Dyspnea on exertion; Translations: [Other forms of dyspnea] Onset: 9 05-03-2018 Episodic Other lower respiratory disease (1 source) Dyspnea; Translations: [Shortness of breath] Episodic Other male genital disorders (20 sources) Impotence; Translations: [Male erectile dysfunction, unspecified] 11-30-2022 Chronic Other nervous system disorders (2 sources) Abnormal gait; Translations: [Gait difficulty] Episodic Other non-traumatic joint disorders (2 sources) Knee pain; Translations: [Acute pain of right knee] Episodic Other non-traumatic joint disorders (2 sources) Knee stiff; Translations: [Stiffness of right knee] Episodic Other non-traumatic joint disorders (8 sources) Pain in right shoulder; Translations: [Pain in joint, shoulder region] 10-09-2017 Episodic Other nutritional; endocrine; and metabolic disorders (20 sources) Body mass index 30+ - obesity; Translations: [Body mass index (BMI) 39.0-39.9, adult] 09-24-2018 Chronic Other nutritional; endocrine; and metabolic disorders (20 sources) Obesity; Translations: [Obesity, unspecified] 11-30-2022 Chronic Other screening for suspected conditions (not mental disorders or infectious disease) (20 sources) CT of chest abnormal; Translations: [Abnormal findings on diagnostic imaging of other specified body structures] 09-24-2018 Chronic Other screening for suspected conditions (not mental disorders or infectious disease) (20 sources) High carcinoembryonic antigen level; Translations: [Elevated carcinoembryonic antigen [CEA]] Onset: 3 09-09-2022 Episodic Other skin disorders (8 sources) Disorder of elbow; Translations: [Localized swelling, mass and lump, right upper limb] 01-13-2014 Episodic Other upper respiratory infections (20 sources) Acute sinusitis, unspecified; Translations: [Upper respiratory infection] 07-06-2021 Episodic Otitis media and related conditions (20 sources) Acute suppurative otitis media; Translations: [Acute suppurative otitis media without spontaneous rupture of ear drum, unspecified ear] 07-06-2021 Episodic Pneumonia (20 sources) Bacterial pneumonia; Translations: [Unspecified bacterial pneumonia] Onset: 5 Resolved: 9 12-30-2014 Episodic Pulmonary heart disease (20 sources) Pulmonary hypertension; Translations: [Pulmonary hypertension, unspecified] 11-30-2022 Chronic Residual codes; unclassified (20 sources) Obstructive sleep apnea syndrome; Translations: [Obstructive sleep apnea (adult) (pediatric)] Onset: 9 07-26-2018 Chronic Residual codes; unclassified (2 sources) Obstructive sleep apnea (adult) (pediatric); Translations: [Obstructive sleep apnea (adult) (pediatric)] Onset: 9 Chronic Residual codes; unclassified (2 sources) Dependence on other enabling machines and devices; Translations: [Dependence on other enabling machines and devices] Onset: 9 Chronic Residual codes; unclassified (20 sources) Edema of lower extremity; Translations: [Localized edema] 07-06-2021 Episodic Residual codes; unclassified (16 sources) History of colectomy; Translations: [Acquired absence of other specified parts of digestive tract] 11-30-2022 Episodic Residual codes; unclassified (20 sources) Insomnia; Translations: [Insomnia, unspecified] 11-30-2022 Episodic Residual codes; unclassified (16 sources) History of partial resection of colon; Translations: [Acquired absence of other specified parts of digestive tract] 05-12-2022 Episodic Residual codes; unclassified (8 sources) Influenza vaccination declined; Translations: [Immunization not carried out because of patient refusal] 12-21-2015 Episodic Septicemia (except in labor) (18 sources) Sepsis; Translations: [Sepsis, unspecified organism] Episodic Shock (1 source) Shock; Translations: [Other shock] Episodic Skin and subcutaneous tissue infections (20 sources) Cellulitis of perineum; Translations: [Cellulitis of perineum] Onset: 3 Episodic Spondylosis; intervertebral disc disorders; other back problems (20 sources) Lumbar disc prolapse with radiculopathy; Translations: [Intervertebral disc disorders with radiculopathy, lumbar region] 07-06-2021 Episodic Unclassified (13 sources) Patient encounter status; Translations: [Therapeutic drug monitoring] Unclassified (8 sources) 07-06-2021 Unclassified (1 source) Other ventricular tachycardia; Translations: [Other ventricular tachycardia] Onset: 2 Past or Other Problems Problem Classification Problem Date Documented Da te Episodic/Chronic Coronary atherosclerosis and other heart disease (3 sources) Aortocoronary bypass graft present; Translations: [Presence of aortocoronary bypass graft] Onset: 10-21-2020 Episodic Deficiency and other anemia (20 sources) Chronic anemia; Translations: [Anemia, unspecified] Onset: 08-30-2022 08-30-2022 Episodic Deficiency and other anemia (2 sources) Anemia, unspecified; Translations: [Anemia, unspecified] Onset: 08-30-2022 Episodic Other aftercare (6 sources) Encounter for therapeutic drug level monitoring; Translations: [Encounter for therapeutic drug level monitoring] Onset: 11-23-2021 Episodic Other aftercare (6 sources) Other ferry terminal agent (current) drug therapy; Translations: [Other mcfp (current) drug therapy] Onset: 11-23-2021 Episodic Other aftercare (20 sources) Drug therapy finding; Translations: [ferry terminal supervisor (current) use of anticoagulants] Onset: 08-30-2022 Episodic Other aftercare (2 sources) ferry terminal supervisor (current) use of anticoagulants; Translations: [ferry terminal supervisor (current) use of anticoagulants] Onset: 08-30-2022 Episodic Pleurisy; pneumothorax; pulmonary collapse (20 sources) Bilateral pleural effusion; Translations: [Pleural effusion, not elsewhere classified] Onset: 11-23-2020 Episodic Residual codes; unclassified (2 sources) Acquired absence of other specified parts of digestive tract; Translations: [Acquired absence of other specified parts of digestive tract] Onset: 04-26-2022 Episodic Unclassified (1 source) Other ventricular tachycardia; Translations: [Other ventricular tachycardia] Onset: 05-31-2022 NEGATED: Highlighted row has not occurred!Residual codes; unclassified (13 sources) Disease Episodic Results Test Name Value Interpretation Reference Range Facil ity Vital Signs Date Time Vital Sign Value Performing Clinician Facility 03-30-2023 10:36-0500 Body weight 78.02 kg Sravan Steele LPN [facility]. 03-30-2023 10:36-0500 Diastolic blood pressure 56 mm[Hg] Sravan Steele LPN [facility], [facility]. 03-30-2023 10:36-0500 Heart rate 73 /min Sravan Steele LPN [facility] 03-30-2023 10:36-0500 Systolic blood pressure 83 mm[Hg] Sravan Steele LPN [facility]. 12-22-2022 09:58-0400 Body temperature 97.59 [degF] Андрей Claros RN [facility] 12-22-2022 09:58-0400 Diastolic blood pressure 62 mm[Hg] Андрей Claros RN [facility] 12-22-2022 09:58-0400 Heart rate 74 /min Андрей Claros RN [facility] 12-22-2022 09:58-0400 Respiratory rate 14 /min Андрей Claros RN [facility] 12-22-2022 09:58-0400 SaO2% (BldA) [Mass fraction] 90 % Андрей Claros RN [facility] 12-22-2022 09:58-0400 Systolic blood pressure 102 mm[Hg] Андрей Claros RN [facility] 12-15-2022 09:14-0400 Body temperature 98.1 [degF] Андрей Claros RN [facility] 12-15-2022 09:14-0400 Diastolic blood pressure 68 mm[Hg] Андрей Claros RN [facility] 12-15-2022 09:14-0400 Heart rate 76 /min Андрей Claros RN [facility] 12-15-2022 09:14-0400 Respiratory rate 16 /min Андрей Claros RN [facility] 12-15-2022 09:14-0400 SaO2% (BldA) [Mass fraction] 98 % Андрей Claros RN [facility] 12-15-2022 09:14-0400 Systolic blood pressure 112 mm[Hg] Андрей Claros RN [facility] 12-06-2022 13:42-0400 Body height 170.2 cm Sherry George DO Work Phone: [facility] 12-06-2022 13:42-0400 Body mass index (BMI) [Ratio] 26.63 kg/m2 Sherry George DO Work Phone: [facility] 12-06-2022 13:42-0400 Body weight 77.11 kg Sherry George DO Work Phone: [facility] 12-06-2022 13:42-0400 Diastolic blood pressure 56 mm[Hg] Sherry George DO Work Phone: [facility] 12-06-2022 13:42-0400 Heart rate 71 /min Sherry George DO Work Phone: [facility] 12-06-2022 13:42-0400 Systolic blood pressure 94 mm[Hg] Sherry George DO Work Phone: [facility] 12-06-2022 10:33-0400 Body height 170.2 cm Lenin Ramirez MD Work Phone: [facility] 12-06-2022 10:33-0400 Diastolic blood pressure 58 mm[Hg] Lenin Ramirez MD Work Phone: [facility] 12-06-2022 10:33-0400 Heart rate 76 /min Lenin Ramirez MD Work Phone: [facility] 12-06-2022 10:33-0400 Systolic blood pressure 98 mm[Hg] Lenin Ramirez MD Work Phone: [facility] 12-01-2022 10:39-0400 Body temperature 97.7 [degF] Андрей Claros RN [facility] 12-01-2022 10:39-0400 Diastolic blood pressure 60 mm[Hg] Андрей Claros RN [facility] 12-01-2022 10:39-0400 Heart rate 91 /min Андрей Claros RN [facility] 12-01-2022 10:39-0400 Respiratory rate 16 /min Андрей Claros RN [facility] 12-01-2022 10:39-0400 SaO2% (BldA) [Mass fraction] 93 % Андрей Claros RN [facility] 12-01-2022 10:39-0400 Systolic blood pressure 102 mm[Hg] Андрей Claros RN [facility] 11-30-2022 13:52-0400 Diastolic blood pressure 55 mm[Hg] Sravan Steele LPN [facility], [facility].; [facility]. 11-30-2022 13:52-0400 Heart rate 93 /min Sravan Steele LPN [facility], [facility].; [facility], [facility]. 11-30-2022 13:52-0400 Systolic blood pressure 111 mm[Hg] Sravan Steele LPN [facility], [facility].; [facility], [facility]. 11-27-2022 10:09-0400 Heart rate 89 /min KATHE CHAMPION MD [facility] 11-27-2022 10:09-0400 Respiratory rate 18 /min KATHE CHAMPION MD [facility] 11-27-2022 10:04-0400 Body temperature 97.7 [degF] KATHE CHAMPION MD [facility] 11-27-2022 10:04-0400 Diastolic Blood Pressure Non-Invasive 74 1 KATHE CHAMPION MD [facility] 11-27-2022 10:04-0400 Heart rate 89 /min KATHE CHAMPION MD [facility] 11-27-2022 10:04-0400 Systolic Blood Pressure Non-Invasive 105 1 KATHE CHAMPION MD [facility] 11-27-2022 07:27-0400 Heart rate 85 /min KATHE CHAMPION MD [facility] 11-27-2022 07:27-0400 Respiratory rate 18 /min KATHE CHAMPION MD [facility] 11-27-2022 07:18-0400 Body temperature 97.7 [degF] KATHE CHAMPION MD [facility] 11-27-2022 07:18-0400 Diastolic Blood Pressure Non-Invasive 55 1 KATHE CHAMPION MD [facility] 11-27-2022 07:18-0400 Respiratory rate 18 /min KATHE CHAMPION MD [facility] 11-27-2022 07:18-0400 Systolic Blood Pressure Non-Invasive 98 1 KATHE CHAMPION MD [facility] 11-27-2022 02:28-0400 Blood Pressure Cuff Size KATHE CHAMPION MD [facility] 11-27-2022 02:28-0400 Blood Pressure Location KATHE CHAMPION MD [facility] 11-27-2022 02:28-0400 Blood Pressure Method KATHE CHAMPION MD [facility] 11-27-2022 02:28-0400 Body temperature 97.88 [degF] KATHE CHAMPION MD [facility] 11-27-2022 02:28-0400 Diastolic Blood Pressure Non-Invasive 61 1 KATHE CHAMPION MD [facility] 11-27-2022 02:28-0400 Systolic Blood Pressure Non-Invasive 93 1 KATHE CHAMPION MD [facility] 11-27-2022 00:40-0400 Blood Pressure Cuff Size KATHE CHAMPION MD [facility] 11-27-2022 00:40-0400 Blood Pressure Location KATHE CHAMPION MD [facility] 11-27-2022 00:40-0400 Blood Pressure Method KATHE CHAMPION MD [facility] 11-26-2022 23:26-0400 Blood Pressure Cuff Size KATHE CHAMPION MD [facility] 11-26-2022 23:26-0400 Blood Pressure Location KATHE CHAMPION MD [facility] 11-26-2022 23:26-0400 Blood Pressure Method KATHE CHAMPION MD [facility] 11-26-2022 19:11-0400 Body temperature 96.8 [degF] KATHE CHAMPION MD [facility] 11-26-2022 19:11-0400 Body weight 80.5 kg KATHE CHAMPION MD [facility] 11-26-2022 19:11-0400 Reason For Taking VItal Signs KATHE CHAMPION MD [facility] 11-26-2022 19:01-0400 Heart rate 104 /min KATHE CHAMPION MD [facility] 11-26-2022 18:31-0400 Heart rate 104 /min KATHE CHAMPION MD [facility] 11-26-2022 18:02-0400 Heart rate 76 /min KATHE CHAMPION MD [facility] 11-26-2022 17:05-0400 Body weight 81.9 kg KATHE CHAMPION MD [facility] 11-26-2022 17:05-0400 Reason For Taking VItal Signs KATHE CHAMPION MD [facility] 11-26-2022 14:34-0400 Heart rate 124 /min KATHE CHAMPION MD [facility] 11-26-2022 10:36-0400 Heart rate 104 /min KATHE CHAMPION MD [facility] 11-26-2022 02:23-0400 Reason For Taking VItal Signs KATHE CHAMPION MD [facility] 11-25-2022 12:20-0400 Body temperature 98.06 [degF] KATHE CHAMPION MD [facility] 11-25-2022 12:20-0400 Body weight 78.2 kg KATHE CHAMPION MD [facility] 11-25-2022 09:23-0400 Body temperature 97.52 [degF] KATHE CHAMPION MD [facility] 11-24-2022 19:00-0400 Heart rate 92 /min KATHE CHAMPION MD [facility] 11-24-2022 16:54-0400 Mean blood pressure 68 mm[Hg] KATHE CHAMPION MD [facility] 11-24-2022 15:05-0400 Mean blood pressure 67 mm[Hg] KATHE CHAMPION MD [facility] 11-24-2022 14:30-0400 Mean blood pressure 60 mm[Hg] KATHE CHAMPION MD [facility] 11-24-2022 00:05-0400 Body height 170 cm KATHE CHAMPION MD [facility] 11-24-2022 00:05-0400 Body weight 26.75 kg/m2 KATHE CHAMPION MD [facility] 11-17-2022 08:56-0400 Body temperature 97.2 [degF] Essence Larios [facility] 11-17-2022 08:56-0400 Diastolic blood pressure 58 mm[Hg] Essence Larios [facility] 11-17-2022 08:56-0400 Heart rate 58 /min Essence Larios [facility] 11-17-2022 08:56-0400 Respiratory rate 18 /min Essence Larios [facility] 11-17-2022 08:56-0400 SaO2% (BldA) [Mass fraction] 98 % Essence Larios [facility] 11-17-2022 08:56-0400 Systolic blood pressure 102 mm[Hg] Essence Larios [facility] 11-03-2022 10:55-0400 Body temperature 98.2 [degF] Андрей Claros RN [facility] 11-03-2022 10:55-0400 Diastolic blood pressure 62 mm[Hg] Андрей Claros RN [facility] 11-03-2022 10:55-0400 Heart rate 78 /min Андрей Claros RN [facility] 11-03-2022 10:55-0400 Respiratory rate 16 /min Андрей Claros RN [facility] 11-03-2022 10:55-0400 SaO2% (BldA) [Mass fraction] 93 % Андрей Claros RN [facility] 11-03-2022 10:55-0400 Systolic blood pressure 118 mm[Hg] Андрей Claros RN [facility] 10-25-2022 09:24-0400 Body temperature 98.29 [degF] Андрей Claros RN [facility] 10-25-2022 09:24-0400 Diastolic blood pressure 62 mm[Hg] Андрей Claros RN [facility] 10-25-2022 09:24-0400 Heart rate 78 /min Андрей Claros RN [facility] 10-25-2022 09:24-0400 Respiratory rate 16 /min Андрей Claros RN [facility] 10-25-2022 09:24-0400 SaO2% (BldA) [Mass fraction] 92 % Андрей Claros RN [facility] 10-25-2022 09:24-0400 Systolic blood pressure 102 mm[Hg] Андрей Claros RN [facility] 10-13-2022 08:53-0400 Body temperature 97.9 [degF] Андрей Claros RN [facility] 10-13-2022 08:53-0400 Diastolic blood pressure 62 mm[Hg] Андрей Claros RN [facility] 10-13-2022 08:53-0400 Heart rate 86 /min Андрей Claros RN [facility] 10-13-2022 08:53-0400 Respiratory rate 16 /min Андрей Claros RN [facility] 10-13-2022 08:53-0400 SaO2% (BldA) [Mass fraction] 97 % Андрей Claros RN [facility] 10-13-2022 08:53-0400 Systolic blood pressure 112 mm[Hg] Андрей Claros RN [facility] 10-06-2022 08:32-0400 Body temperature 98.1 [degF] Андрей Claros RN [facility] 10-06-2022 08:32-0400 Diastolic blood pressure 68 mm[Hg] Андрей Claros RN [facility] 10-06-2022 08:32-0400 Heart rate 68 /min Андрей Claros RN [facility] 10-06-2022 08:32-0400 Respiratory rate 16 /min Андрей Claros RN [facility] 10-06-2022 08:32-0400 SaO2% (BldA) [Mass fraction] 97 % Андрей Claros RN [facility] 10-06-2022 08:32-0400 Systolic blood pressure 108 mm[Hg] Андрей Claros RN [facility] 09-29-2022 10:34-0400 Body temperature 98.01 [degF] Андрей Claros RN [facility] 09-29-2022 10:34-0400 Diastolic blood pressure 60 mm[Hg] Андрей Claros RN [facility] 09-29-2022 10:34-0400 Heart rate 92 /min Андрей Claros RN [facility] 09-29-2022 10:34-0400 Respiratory rate 16 /min Андрей Claros RN [facility] 09-29-2022 10:34-0400 SaO2% (BldA) [Mass fraction] 97 % Андрей Claros RN [facility] 09-29-2022 10:34-0400 Systolic blood pressure 118 mm[Hg] Андрей Claros RN [facility] 09-22-2022 08:23-0400 Body temperature 98.1 [degF] Андрей Claros RN [facility] 09-22-2022 08:23-0400 Diastolic blood pressure 62 mm[Hg] Андрей Claros RN [facility] 09-22-2022 08:23-0400 Heart rate 82 /min Андрей Claros RN [facility] 09-22-2022 08:23-0400 Respiratory rate 16 /min Андрей Claros RN [facility] 09-22-2022 08:23-0400 SaO2% (BldA) [Mass fraction] 99 % Андрей Claros RN [facility] 09-22-2022 08:23-0400 Systolic blood pressure 108 mm[Hg] Андрей Claros RN [facility] 09-15-2022 09:01-0400 Body temperature 98.29 [degF] Андрей Claros RN [facility] 09-15-2022 09:01-0400 Diastolic blood pressure 62 mm[Hg] Андрей Claros RN [facility] 09-15-2022 09:01-0400 Heart rate 79 /min Андрей Claros RN [facility] 09-15-2022 09:01-0400 Respiratory rate 16 /min Андрей Claros RN [facility] 09-15-2022 09:01-0400 SaO2% (BldA) [Mass fraction] 91 % Андрей Claros RN [facility] 09-15-2022 09:01-0400 Systolic blood pressure 104 mm[Hg] Андрей Claros RN [facility] 09-08-2022 08:47-0400 Body temperature 98.1 [degF] Андрей Claros RN [facility] 09-08-2022 08:47-0400 Diastolic blood pressure 60 mm[Hg] Андрей Claros RN [facility] 09-08-2022 08:47-0400 Heart rate 87 /min Андрей Claros RN [facility] 09-08-2022 08:47-0400 Respiratory rate 16 /min Андрей Claros RN [facility] 09-08-2022 08:47-0400 SaO2% (BldA) [Mass fraction] 99 % Андрей Claros RN [facility] 09-08-2022 08:47-0400 Systolic blood pressure 102 mm[Hg] Андрей Claros RN [facility] 09-01-2022 09:01-0400 Body temperature 97.3 [degF] Андрей Claros RN [facility] 09-01-2022 09:01-0400 Diastolic blood pressure 58 mm[Hg] Андрей Claros RN [facility] 09-01-2022 09:01-0400 Heart rate 92 /min Андрей Claros RN [facility] 09-01-2022 09:01-0400 Respiratory rate 16 /min Андрей Claros RN [facility] 09-01-2022 09:01-0400 SaO2% (BldA) [Mass fraction] 97 % Андрей Claros RN [facility] 09-01-2022 09:01-0400 Systolic blood pressure 112 mm[Hg] Андрей Claros RN [facility] 08-25-2022 11:43-0400 Body temperature 98.2 [degF] Андрей Claros RN [facility] 08-25-2022 11:43-0400 Diastolic blood pressure 76 mm[Hg] Андрей Claros RN [facility] 08-25-2022 11:43-0400 Heart rate 81 /min Андрей Claros RN [facility] 08-25-2022 11:43-0400 Respiratory rate 16 /min Андрей Claros RN [facility] 08-25-2022 11:43-0400 SaO2% (BldA) [Mass fraction] 97 % Андрей Claros RN [facility] 08-25-2022 11:43-0400 Systolic blood pressure 114 mm[Hg] Андрей Claros RN [facility] 08-09-2022 08:39-0400 Body temperature 98.2 [degF] Андрей Claros RN [facility] 08-09-2022 08:39-0400 Diastolic blood pressure 76 mm[Hg] Андрей Claros RN [facility] 08-09-2022 08:39-0400 Heart rate 87 /min Андрей Claros RN [facility] 08-09-2022 08:39-0400 Respiratory rate 16 /min Андрей Claros RN [facility] 08-09-2022 08:39-0400 SaO2% (BldA) [Mass fraction] 95 % Андрей Claros RN [facility] 08-09-2022 08:39-0400 Systolic blood pressure 108 mm[Hg] Андрей Claros RN [facility] 07-21-2022 08:56-0400 Body temperature 98.1 [degF] Андрей Claros RN [facility] 07-21-2022 08:56-0400 Diastolic blood pressure 76 mm[Hg] Андрей Claros RN [facility] 07-21-2022 08:56-0400 Heart rate 76 /min Андрей Claros RN [facility] 07-21-2022 08:56-0400 Respiratory rate 16 /min Андрей Claros RN [facility] 07-21-2022 08:56-0400 SaO2% (BldA) [Mass fraction] 97 % Андрей Claros RN [facility] 07-21-2022 08:56-0400 Systolic blood pressure 106 mm[Hg] Андрей Claros RN [facility] 06-28-2022 11:27-0400 Body temperature 98.01 [degF] Андрей Claros RN [facility] 06-28-2022 11:27-0400 Diastolic blood pressure 62 mm[Hg] Андрей Claros RN [facility] 06-28-2022 11:27-0400 Heart rate 63 /min Андрей Claros RN [facility] 06-28-2022 11:27-0400 Respiratory rate 16 /min Андрей Claros RN [facility] 06-28-2022 11:27-0400 SaO2% (BldA) [Mass fraction] 93 % Андрей Claros RN [facility] 06-28-2022 11:27-0400 Systolic blood pressure 102 mm[Hg] Андрей Clarso RN [facility] 06-23-2022 11:21-0400 Body temperature 98.1 [degF] Андрей Claros RN [facility] 06-23-2022 11:21-0400 Diastolic blood pressure 74 mm[Hg] Андрей Claros RN [facility] 06-23-2022 11:21-0400 Heart rate 76 /min Андрей Claros RN [facility] 06-23-2022 11:21-0400 Respiratory rate 16 /min Андрей Claros RN [facility] 06-23-2022 11:21-0400 SaO2% (BldA) [Mass fraction] 98 % Андрей Claros RN [facility] 06-23-2022 11:21-0400 Systolic blood pressure 114 mm[Hg] Андрей Claros RN [facility] 06-23-2022 09:18-0400 Body temperature 97.9 [degF] Juancho Kaminski PT [facility] 06-23-2022 09:18-0400 Diastolic blood pressure 70 mm[Hg] Juancho Kaminski [facility] 06-23-2022 09:18-0400 Heart rate 80 /min Juancho Kaminski PT [facility] 06-23-2022 09:18-0400 Respiratory rate 18 /min Juancho Kaminski PT [facility] 06-23-2022 09:18-0400 SaO2% (BldA) [Mass fraction] 97 % Juancho Kaminski [facility] 06-23-2022 09:18-0400 Systolic blood pressure 125 mm[Hg] Juancho Kaminski [facility] 06-21-2022 09:08-0400 Body height 163.83 cm [facility], [facility].; [facility]. 06-21-2022 09:08-0400 Body mass index (BMI) [Ratio] 28.56 kg/m2 [facility], [facility].; [employer] [facility], [facility]. 06-21-2022 09:08-0400 Body surface area Derived from formula 1.83 m2 [facility], [facility].; [employer] [facility], [facility]. 06-21-2022 09:08-0400 Body weight 76.66 kg [facility], [facility].; [employer] [facility], [facility]. 06-21-2022 09:08-0400 Diastolic blood pressure 51 mm[Hg] [facility], [facility].; [employer] [facility], [facility]. 06-21-2022 09:08-0400 Heart rate 77 /min [facility], [facility].; [employer] [facility], [facility]. 06-21-2022 09:08-0400 Systolic blood pressure 130 mm[Hg] [facility], [facility].; [employer], [facility]. 06-15-2022 15:37-0400 Body temperature 97.7 [degF] Sravan Martín [facility] 06-15-2022 15:37-0400 Diastolic blood pressure 81 mm[Hg] Sravan Martín [facility] 06-15-2022 15:37-0400 Heart rate 78 /min Sravan Martín [facility] 06-15-2022 15:37-0400 Respiratory rate 18 /min Sravan Martín [employer] [facility] 06-15-2022 15:37-0400 SaO2% (BldA) [Mass fraction] 91 % Sravan Martín [employer] [facility] 06-15-2022 15:37-0400 Systolic blood pressure 132 mm[Hg] Sravan Martín [employer] [facility] 06-09-2022 12:59-0400 Body temperature 97.7 [degF] Sravan Martín [employer] [facility] 06-09-2022 12:59-0400 Diastolic blood pressure 64 mm[Hg] Sravan Martín [employer] [facility] 06-09-2022 12:59-0400 Heart rate 71 /min Sravan Martín [employer] [facility] 06-09-2022 12:59-0400 Respiratory rate 18 /min Sravan Martín [employer] [facility] 06-09-2022 12:59-0400 SaO2% (BldA) [Mass fraction] 93 % Sravan Martín [employer] [facility] 06-09-2022 12:59-0400 Systolic blood pressure 125 mm[Hg] Sravan Martín [employer] [facility] 06-02-2022 09:42-0400 Body temperature 99.1 [degF] Андрей Claros RN [facility] 06-02-2022 09:42-0400 Diastolic blood pressure 58 mm[Hg] Андрей Claros RN [facility] 06-02-2022 09:42-0400 Heart rate 76 /min Андрей Claros RN [facility] 06-02-2022 09:42-0400 Respiratory rate 16 /min Андрей Claros RN [facility] 06-02-2022 09:42-0400 SaO2% (BldA) [Mass fraction] 96 % Андрей Claros RN [facility] 06-02-2022 09:42-0400 Systolic blood pressure 102 mm[Hg] Андрей Claros RN [facility] 06-01-2022 15:40-0400 Body temperature 97.5 [degF] [facility] 06-01-2022 15:40-0400 Diastolic blood pressure 62 mm[Hg] [facility] 06-01-2022 15:40-0400 Respiratory rate 17 /min [facility] 06-01-2022 15:40-0400 Systolic blood pressure 128 mm[Hg] [facility] 05-31-2022 10:08-0400 Body height 170.2 cm Lenin Ramirez MD Work Phone: [facility] 05-31-2022 10:08-0400 Body mass index (BMI) [Ratio] 26.31 kg/m2 Lenin Ramirez MD Work Phone: [facility] 05-31-2022 10:08-0400 Body weight 76.2 kg Lenin Ramirez MD Work Phone: [facility] 05-31-2022 10:08-0400 Diastolic blood pressure 69 mm[Hg] Lenin Ramirez MD Work Phone: [facility] 05-31-2022 10:08-0400 Heart rate 73 /min Lenin Ramirez MD Work Phone: [facility] 05-31-2022 10:08-0400 SaO2% (BldA) [Mass fraction] 99 % Lenin Ramirez MD Work Phone: [facility] 05-31-2022 10:08-0400 Systolic blood pressure 119 mm[Hg] Lenin Ramirez MD Work Phone: [facility] 05-26-2022 09:03-0400 Body temperature 98.1 [degF] Андрей Claros RN [facility] 05-26-2022 09:03-0400 Diastolic blood pressure 56 mm[Hg] Андрей Claros RN [facility] 05-26-2022 09:03-0400 Heart rate 86 /min Андрей Claros RN [facility] 05-26-2022 09:03-0400 Respiratory rate 16 /min Андрей Claros RN [facility] 05-26-2022 09:03-0400 SaO2% (BldA) [Mass fraction] 98 % Андрей Claros RN [facility] 05-26-2022 09:03-0400 Systolic blood pressure 110 mm[Hg] Андрей Claros RN [facility] 05-24-2022 09:14-0400 Body temperature 97.9 [degF] Sachin Claire PT [facility] 05-24-2022 09:14-0400 Diastolic blood pressure 72 mm[Hg] Sachin Claire PT [facility] 05-24-2022 09:14-0400 Heart rate 63 /min Sachin Claire PT [facility] 05-24-2022 09:14-0400 Respiratory rate 16 /min Sachin Claire PT [facility] 05-24-2022 09:14-0400 SaO2% (BldA) [Mass fraction] 97 % Sachin Claire PT [facility] 05-24-2022 09:14-0400 Systolic blood pressure 117 mm[Hg] Sachin Claire PT [facility] 05-19-2022 10:23-0500 Body temperature 97.3 [degF] [facility] [employer] [facility] 05-19-2022 10:23-0500 Diastolic blood pressure 74 mm[Hg] [facility] 05-19-2022 10:23-0500 Heart rate 77 /min [facility] 05-19-2022 10:23-0500 Respiratory rate 17 /min [facility] 05-19-2022 10:23-0500 SaO2% (BldA) [Mass fraction] 95 % [facility] 05-19-2022 10:23-0500 Systolic blood pressure 138 mm[Hg] [facility] 05-19-2022 08:35-0500 Body temperature 98.49 [degF] Андрей Claros RN [facility] 05-19-2022 08:35-0500 Diastolic blood pressure 54 mm[Hg] Андрей Claros RN [facility] 05-19-2022 08:35-0500 Heart rate 78 /min Андрей Claros RN [facility] 05-19-2022 08:35-0500 Respiratory rate 16 /min Андрей Claros RN [facility] 05-19-2022 08:35-0500 SaO2% (BldA) [Mass fraction] 99 % Андрей Claros RN [facility] 05-19-2022 08:35-0500 Systolic blood pressure 116 mm[Hg] Андрей Hyacinth RN [facility] 05-16-2022 15:05-0500 Body temperature 98.71 [degF] Sravan Martín [employer] [facility] 05-16-2022 15:05-0500 Diastolic blood pressure 89 mm[Hg] Sravan Martín [employer] [facility] 05-16-2022 15:05-0500 Heart rate 79 /min Sravan Martín [employer] [facility] 05-16-2022 15:05-0500 Respiratory rate 18 /min Sravan Martín [employer] [facility] 05-16-2022 15:05-0500 SaO2% (BldA) [Mass fraction] 97 % Sravan Resendiz [facility] 05-16-2022 15:05-0500 Systolic blood pressure 124 mm[Hg] Sravan Resendiz [facility] 05-13-2022 15:12-0500 Body temperature 97.39 [degF] Gena Saab [facility] 05-13-2022 15:12-0500 Diastolic blood pressure 76 mm[Hg] Gena Saab [facility] 05-13-2022 15:12-0500 Heart rate 85 /min Gena Saab [facility] 05-13-2022 15:12-0500 SaO2% (BldA) [Mass fraction] 89 % Gena Saab [facility] 05-13-2022 15:12-0500 Systolic blood pressure 125 mm[Hg] Gena Saab [facility] 05-12-2022 13:43-0500 Body height 163.83 cm Varsha Upton LPN [facility], [facility].; [facility], [facility]. 05-12-2022 13:43-0500 Body mass index (BMI) [Ratio] 29.24 kg/m2 Varsha Upton LPN [facility], [facility].; [facility], [facility]. 05-12-2022 13:43-0500 Body surface area Derived from formula 1.85 m2 Varsha Upton LPN [facility], [facility].; [facility], [facility]. 05-12-2022 13:43-0500 Body weight 78.47 kg Varsha Upton LPN [facility], [facility].; [facility], [facility]. 05-12-2022 13:43-0500 Diastolic blood pressure 67 mm[Hg] Varsha Upton LPN [facility], [facility].; [facility], [facility]. 05-12-2022 13:43-0500 Heart rate 69 /min Varsha Upton LPN [facility], [facility].; [facility], [facility]. 05-12-2022 13:43-0500 Inhaled oxygen concentration 30 % Varsha Upton LPN [facility], [facility].; [facility], [facility]. 05-12-2022 13:43-0500 SaO2% (BldA) [Mass fraction] 98 % Varsha Upton LPN [facility], [facility].; [facility]. 05-12-2022 13:43-0500 Systolic blood pressure 119 mm[Hg] Varsha Upton LPN [facility].; [facility]. 05-12-2022 13:43-0500 2.5 L/min Varsha Upton LPN [facility].; [facility]. 05-12-2022 10:03-0500 Body temperature 97.39 [degF] Андрей Claros RN [facility] 05-12-2022 10:03-0500 Diastolic blood pressure 60 mm[Hg] Андрей Claros RN [facility] 05-12-2022 10:03-0500 Heart rate 72 /min Андрей Claros RN [facility] 05-12-2022 10:03-0500 Respiratory rate 16 /min Андрей Claros RN [facility] 05-12-2022 10:03-0500 SaO2% (BldA) [Mass fraction] 97 % Андрей Claros RN [facility] 05-12-2022 10:03-0500 Systolic blood pressure 116 mm[Hg] Андрей Claros RN [facility] 05-10-2022 10:29-0500 Body temperature 98.6 [degF] Renee MCALLISTER [facility] 05-10-2022 10:29-0500 Diastolic blood pressure 56 mm[Hg] Renee MCALLISTER [facility] 05-10-2022 10:29-0500 Heart rate 88 /min Renee MCALLISTER [facility] 05-10-2022 10:29-0500 Respiratory rate 16 /min Renee MCALLISTER [facility] 05-10-2022 10:29-0500 SaO2% (BldA) [Mass fraction] 98 % Renee MCALLISTER [facility] 05-10-2022 10:29-0500 Systolic blood pressure 114 mm[Hg] Renee MCALLISTER [facility] 05-10-2022 09:35-0500 Body temperature 98.2 [degF] Sravan Martín [employer] [facility] 05-10-2022 09:35-0500 Diastolic blood pressure 54 mm[Hg] Sravan Martín [facility] 05-10-2022 09:35-0500 Heart rate 82 /min Sravna Martín [facility] 05-10-2022 09:35-0500 Respiratory rate 16 /min Sravan Martín [employer] [facility] 05-10-2022 09:35-0500 SaO2% (BldA) [Mass fraction] 96 % Sravan Martín [facility] 05-10-2022 09:35-0500 Systolic blood pressure 111 mm[Hg] Sravan Resendiz [employer] [facility] 05-08-2022 14:28-0500 Body temperature 97.5 [degF] Sachin Claire PT [facility] 05-08-2022 14:28-0500 Diastolic blood pressure 50 mm[Hg] Sachin Claire PT [facility] 05-08-2022 14:28-0500 Heart rate 71 /min Sachin Claire PT [facility] 05-08-2022 14:28-0500 Respiratory rate 16 /min Sachin Claire PT [facility] 05-08-2022 14:28-0500 SaO2% (BldA) [Mass fraction] 97 % Sachin Claire PT [facility] 05-08-2022 14:28-0500 Systolic blood pressure 97 mm[Hg] Sachin Claire PT [facility] 05-05-2022 12:53-0500 Body temperature 98.2 [degF] Renee MCLALISTER [facility] 05-05-2022 12:53-0500 Diastolic blood pressure 64 mm[Hg] Renee MCALLISTER [facility] 05-05-2022 12:53-0500 Heart rate 77 /min Renee MCALLISTER [facility] 05-05-2022 12:53-0500 Respiratory rate 16 /min Renee MCALLISTER [facility] 05-05-2022 12:53-0500 SaO2% (BldA) [Mass fraction] 95 % Renee MCALLISTER [facility] 05-05-2022 12:53-0500 Systolic blood pressure 114 mm[Hg] Renee MCALLISTER [facility] 05-05-2022 09:58-0500 Body temperature 98.1 [degF] Андрей Claros RN [facility] 05-05-2022 09:58-0500 Diastolic blood pressure 62 mm[Hg] Андрей Claros RN [facility] 05-05-2022 09:58-0500 Heart rate 72 /min Андрей Claros RN [facility] 05-05-2022 09:58-0500 Respiratory rate 16 /min Андрей Claros RN [facility] 05-05-2022 09:58-0500 SaO2% (BldA) [Mass fraction] 98 % Андрей Claros RN [facility] 05-05-2022 09:58-0500 Systolic blood pressure 122 mm[Hg] Андрей Claros RN [facility] 05-02-2022 15:52-0500 Body temperature 97.7 [degF] Gena Saab [facility] 05-02-2022 15:52-0500 Diastolic blood pressure 46 mm[Hg] Gena Saab [facility] 05-02-2022 15:52-0500 Heart rate 76 /min Gena Saab [facility] 05-02-2022 15:52-0500 SaO2% (BldA) [Mass fraction] 98 % Gena Saab [facility] 05-02-2022 15:52-0500 Systolic blood pressure 97 mm[Hg] Gena Saab [facility] 05-01-2022 11:41-0500 Body height 170.2 cm Melida Cook [facility] 05-01-2022 11:41-0500 Body mass index (BMI) [Ratio] 26.63 kg/m2 Melida Cook [facility] 05-01-2022 11:41-0500 Body temperature 97.59 [degF] Melida Cook [facility] 05-01-2022 11:41-0500 Body weight 77.11 kg Melida Cook [facility] 05-01-2022 11:41-0500 Diastolic blood pressure 70 mm[Hg] Melida Cook [facility] 05-01-2022 11:41-0500 Heart rate 70 /min Melida Cook [facility] 05-01-2022 11:41-0500 Respiratory rate 18 /min Melida Cook [facility] 05-01-2022 11:41-0500 SaO2% (BldA) [Mass fraction] 96 % Melida Cook [facility] 05-01-2022 11:41-0500 Systolic blood pressure 110 mm[Hg] Melida Cook [facility] 04-14-2022 13:22-0500 Body height 163.83 cm Varsha Upton LPN [facility], [facility].; [facility], [facility]. 04-14-2022 13:22-0500 Body mass index (BMI) [Ratio] 30.08 kg/m2 Varsha Upton LPN [facility], [facility].; [employer] [facility], [facility]. 04-14-2022 13:22-0500 Body surface area Derived from formula 1.87 m2 Varsha Upton LPN [facility], [facility].; [employer], [facility]. 04-14-2022 13:22-0500 Body weight 80.74 kg Varsha Upton LPN [facility], [facility].; [place] [employer] [facility]. 04-14-2022 13:22-0500 Diastolic blood pressure 71 mm[Hg] Varsha Upton LPN [facility], [facility].; [employer] [facility], [facility]. 04-14-2022 13:22-0500 Heart rate 80 /min Varsha Upton LPN [facility], [facility].; [employer], [facility]. 04-14-2022 13:22-0500 Systolic blood pressure 121 mm[Hg] Varsha Upton LPN [facility], [facility].; [employer], [facility]. 04-05-2022 15:31-0500 Body mass index (BMI) [Ratio] 28.04 kg/m2 Sherry George DO Work Phone: [facility] 04-05-2022 15:31-0500 Body weight 81.19 kg Sherry George DO Work Phone: [facility] 04-05-2022 15:31-0500 Diastolic blood pressure 57 mm[Hg] Sherry George DO Work Phone: [facility] 04-05-2022 15:31-0500 Heart rate 78 /min Sherry George DO Work Phone: [facility] 04-05-2022 15:31-0500 Respiratory rate 16 /min Sherry George DO Work Phone: [facility] 04-05-2022 15:31-0500 Systolic blood pressure 106 mm[Hg] Sherry George DO Work Phone: [facility] 03-29-2022 10:07-0500 Body height 163.83 cm Varsha Obrien MA [place] [employer] [facility].; [employer] [facility]. 03-29-2022 10:07-0500 Body mass index (BMI) [Ratio] 30.08 kg/m2 Varsha Obrien MA [facility], [facility].; [employer], [facility]. 03-29-2022 10:07-0500 Body surface area Derived from formula 1.87 m2 Varsha Obrien MA [facility], [facility]. 03-29-2022 10:07-0500 Body weight 80.74 kg Varsha Obrien MA [facility], [facility].; [employer], [facility]. 03-29-2022 10:07-0500 Diastolic blood pressure 64 mm[Hg] Varsha Obrien MA [facility], [facility].; [employer] [facility]. 03-29-2022 10:07-0500 Heart rate 69 /min Varsha Obrien MA [facility], [facility].; [employer], [facility]. 03-29-2022 10:07-0500 Systolic blood pressure 104 mm[Hg] Varsha Obrien MA [facility], [facility].; [employer], [facility]. 02-22-2022 13:15-0500 Body height 163.83 cm Varsha Obrien MA [facility], [facility].; [employer], [facility]. 02-22-2022 13:15-0500 Body mass index (BMI) [Ratio] 32.79 kg/m2 Varsha Obrien MA [facility], [facility].; [employer], [facility]. 02-22-2022 13:15-0500 Body surface area Derived from formula 1.94 m2 Varsha Obrien MA [facility], [facility].; [employer], [facility]. 02-22-2022 13:15-0500 Body weight 88 kg Varsha Obrien MA [place] [employer] [facility], [facility].; [employer], [facility]. 02-22-2022 13:15-0500 Diastolic blood pressure 47 mm[Hg] Varsha Obrien MA [place] [employer] [facility] [employer], [employer]. 02-22-2022 13:15-0500 Heart rate 76 /min Varsha Obrien MA [place] [employer] [facility], [facility].; [employer], [facility]. 02-22-2022 13:15-0500 Inhaled oxygen concentration 20 % Varsha Obrien MA [place] [employer] [facility].; [employer]. 02-22-2022 13:15-0500 SaO2% (BldA) [Mass fraction] 83 % Varsha Obrien MA [employer].; [employer]. 02-22-2022 13:15-0500 Systolic blood pressure 90 mm[Hg] Varsha Obrien MA [employer].; [employer]. 12-23-2021 08:19-0400 Body height 163.83 cm Zack Olmos MD Work Phone: [employer].; [employer]. 12-23-2021 08:19-0400 Body mass index (BMI) [Ratio] 32.79 kg/m2 Zack Olmos MD Work Phone: [employer].; [employer]. 12-23-2021 08:19-0400 Body surface area Derived from formula 1.94 m2 Zack Olmos MD Work Phone: [employer].; [employer]. 12-23-2021 08:19-0400 Body weight 88 kg Zack Olmos MD Work Phone: [employer].; [employer]. 12-23-2021 08:19-0400 Diastolic blood pressure 72 mm[Hg] Zack Olmos MD Work Phone: [employer].; [employer]. 12-23-2021 08:19-0400 Heart rate 79 /min Zack Olmos MD Work Phone: [employer].; [employer]. 12-23-2021 08:19-0400 Inhaled oxygen concentration 36 % Zack Olmos MD Work Phone: [employer].; [employer]. 12-23-2021 08:19-0400 SaO2% (BldA) [Mass fraction] 98 % Zack Olmos MD Work Phone: [employer] [facility] 12-23-2021 08:19-0400 Systolic blood pressure 128 mm[Hg] Zack Olmos MD Work Phone: [facility].; [facility] 12-23-2021 08:19-0400 4 L/min Zack Olmos MD Work Phone: [email or web address].; [facility] 09-09-2021 14:33-0400 Body temperature 97.9 [degF] [facility] 09-09-2021 14:33-0400 Diastolic blood pressure 65 mm[Hg] Donaldo [facility] 09-09-2021 14:33-0400 Heart rate 67 /min [facility] 09-09-2021 14:33-0400 Respiratory rate 16 /min [facility] 09-09-2021 14:33-0400 SaO2% (BldA) [Mass fraction] 94 % [facility] 09-09-2021 14:33-0400 Systolic blood pressure 117 mm[Hg] [facility] 09-07-2021 15:08-0400 Body temperature 97.81 [degF] [facility] 09-07-2021 15:08-0400 Diastolic blood pressure 73 mm[Hg] [facility] 09-07-2021 15:08-0400 Heart rate 63 /min Donaldo [facility] 09-07-2021 15:08-0400 Respiratory rate 15 /min Donaldo [facility] 09-07-2021 15:08-0400 SaO2% (BldA) [Mass fraction] 93 % [facility] 09-07-2021 15:08-0400 Systolic blood pressure 120 mm[Hg] Donaldo [facility] 09-07-2021 08:34-0400 Body temperature 98.1 [degF] Андрей Claros RN [facility] 09-07-2021 08:34-0400 Diastolic blood pressure 50 mm[Hg] Андрей Claros RN [facility] 09-07-2021 08:34-0400 Heart rate 66 /min Андрей Claros RN [facility] 09-07-2021 08:34-0400 Respiratory rate 16 /min Андрей Claros RN [facility] 09-07-2021 08:34-0400 SaO2% (BldA) [Mass fraction] 95 % Андрей Claros RN [facility] 09-07-2021 08:34-0400 Systolic blood pressure 98 mm[Hg] Андрей Claros RN [facility] 09-01-2021 10:02-0400 Body temperature 97.9 [degF] Donaldo Thrush [facility] 09-01-2021 10:02-0400 Diastolic blood pressure 85 mm[Hg] Donaldo Thrush [facility] 09-01-2021 10:02-0400 Heart rate 67 /min Donaldo Thrush [facility] 09-01-2021 10:02-0400 Respiratory rate 16 /min Donaldo Thrush [facility] 09-01-2021 10:02-0400 SaO2% (BldA) [Mass fraction] 97 % Donaldo Thrush [facility] 09-01-2021 10:02-0400 Systolic blood pressure 121 mm[Hg] Donaldo Thrush [facility] 08-30-2021 10:10-0400 Body temperature 97.2 [degF] Donaldo Thrush [facility] 08-30-2021 10:10-0400 Diastolic blood pressure 63 mm[Hg] Donaldo Thrush [facility] 08-30-2021 10:10-0400 Heart rate 70 /min Donaldo Thrush [facility] 08-30-2021 10:10-0400 Respiratory rate 16 /min Donaldo Thrush [facility] 08-30-2021 10:10-0400 SaO2% (BldA) [Mass fraction] 95 % Donaldo Thrush [facility] 08-30-2021 10:10-0400 Systolic blood pressure 122 mm[Hg] Donaldo Thrush [facility] 08-26-2021 09:42-0400 Body temperature 98.1 [degF] Андрей Claros RN [facility] 08-26-2021 09:42-0400 Diastolic blood pressure 60 mm[Hg] Андрей Claros RN [facility] 08-26-2021 09:42-0400 Heart rate 78 /min Андрей Claros RN [facility] 08-26-2021 09:42-0400 Respiratory rate 16 /min Андрей Claros RN [facility] 08-26-2021 09:42-0400 SaO2% (BldA) [Mass fraction] 97 % Андрей Claros RN [facility] 08-26-2021 09:42-0400 Systolic blood pressure 112 mm[Hg] Андрей Claros RN [facility] 08-19-2021 09:15-0400 Body temperature 97.81 [degF] Андрей Claros RN [facility] 08-19-2021 09:15-0400 Diastolic blood pressure 62 mm[Hg] Андрей Claros RN [facility] 08-19-2021 09:15-0400 Respiratory rate 16 /min Андрей Claros RN [facility] 08-19-2021 09:15-0400 SaO2% (BldA) [Mass fraction] 94 % Андрей Claros RN [facility] 08-19-2021 09:15-0400 Systolic blood pressure 112 mm[Hg] Андрей Claros RN [facility] 08-17-2021 09:58-0400 SaO2% (BldA) [Mass fraction] 99 % Lenin Ramirez MD Work Phone: [facility] 08-17-2021 09:46-0400 Body height 170.2 cm Lenin Ramirez MD Work Phone: [facility] 08-17-2021 09:46-0400 Body mass index (BMI) [Ratio] 29.91 kg/m2 Lenin Ramirez MD Work Phone: [facility] 08-17-2021 09:46-0400 Body weight 86.64 kg Lenin Ramirez MD Work Phone: [facility] 08-17-2021 09:46-0400 Diastolic blood pressure 53 mm[Hg] Lenin Ramirez MD Work Phone: [facility] 08-17-2021 09:46-0400 Heart rate 85 /min Lenin Ramirez MD Work Phone: [facility] 08-17-2021 09:46-0400 Systolic blood pressure 114 mm[Hg] Lenin Ramirez MD Work Phone: [facility] 08-10-2021 09:01-0400 Body temperature 98.01 [degF] Андрей Claros HALEY [facility] 08-10-2021 09:01-0400 Diastolic blood pressure 60 mm[Hg] Андрей Claros RN [facility] 08-10-2021 09:01-0400 Heart rate 94 /min Андрей Claros RN [facility] 08-10-2021 09:01-0400 Respiratory rate 16 /min Андрей Claros RN [facility] 08-10-2021 09:01-0400 SaO2% (BldA) [Mass fraction] 96 % Андрей Claros RN [facility] 08-10-2021 09:01-0400 Systolic blood pressure 106 mm[Hg] Андрей Claros RN [facility] 08-03-2021 09:07-0400 Body temperature 98.2 [degF] Андрей Claros RN [facility] 08-03-2021 09:07-0400 Diastolic blood pressure 68 mm[Hg] Андрей Claros RN [facility] 08-03-2021 09:07-0400 Heart rate 67 /min Андрей Claros RN [facility] 08-03-2021 09:07-0400 Respiratory rate 16 /min Андрей Claros RN [facility] 08-03-2021 09:07-0400 SaO2% (BldA) [Mass fraction] 97 % Андрей Claros RN [facility] 08-03-2021 09:07-0400 Systolic blood pressure 104 mm[Hg] Андрей Claros RN [facility] 07-27-2021 09:02-0400 Body temperature 97.9 [degF] Андрей Claros RN [facility] 07-27-2021 09:02-0400 Diastolic blood pressure 78 mm[Hg] Андрей Claros RN [facility] 07-27-2021 09:02-0400 Heart rate 93 /min Андрей Claros RN [facility] 07-27-2021 09:02-0400 Respiratory rate 16 /min Андрей Claros RN [facility] 07-27-2021 09:02-0400 SaO2% (BldA) [Mass fraction] 93 % Андрей Claros RN [facility] 07-27-2021 09:02-0400 Systolic blood pressure 138 mm[Hg] Андрей Claros RN [facility] 07-15-2021 09:11-0400 Body temperature 98.91 [degF] Андрей Claros RN [facility] 07-15-2021 09:11-0400 Diastolic blood pressure 74 mm[Hg] Андрей Claros RN [facility] 07-15-2021 09:11-0400 Heart rate 76 /min Андрей Claros RN [facility] 07-15-2021 09:11-0400 Respiratory rate 16 /min Андрей Claros RN [facility] 07-15-2021 09:11-0400 SaO2% (BldA) [Mass fraction] 96 % Андрей Claros RN [facility] 07-15-2021 09:11-0400 Systolic blood pressure 118 mm[Hg] Андрей Claros RN [facility] 07-13-2021 09:20-0400 Body temperature 98.01 [degF] Андрей Claros RN [facility] 07-13-2021 09:20-0400 Diastolic blood pressure 62 mm[Hg] Андрей Claros RN [facility] 07-13-2021 09:20-0400 Heart rate 74 /min Андрей Claros RN [facility] 07-13-2021 09:20-0400 Respiratory rate 16 /min Андрей Claros RN [facility] 07-13-2021 09:20-0400 SaO2% (BldA) [Mass fraction] 97 % Андрей Claros RN [facility] 07-13-2021 09:20-0400 Systolic blood pressure 112 mm[Hg] Андрей Claros RN [facility] 07-06-2021 13:24-0400 Body height 163.83 cm Randi Silvestre [facility], [facility].; [employer]. 07-06-2021 13:24-0400 Body mass index (BMI) [Ratio] 31.6 kg/m2 Randi Silvestre [facility], [facility].; [employer] [facility], [facility]. 07-06-2021 13:24-0400 Body surface area Derived from formula 1.91 m2 Randi Silvestre [facility], [facility].; [employer] [facility], [facility]. 07-06-2021 13:24-0400 Body weight 84.82 kg [facility]re [facility], [facility].; [employer], [employer]. 07-06-2021 13:24-0400 Diastolic blood pressure 65 mm[Hg] Randi Silvestre [facility], [facility].; [employer] [facility], [facility]. 07-06-2021 13:24-0400 Heart rate 90 /min Randi Silvestre [facility], [facility].; [employer], [facility]. 07-06-2021 13:24-0400 Inhaled oxygen concentration 32 % Randi Silvestre [facility].; [facility]. 07-06-2021 13:24-0400 SaO2% (BldA) [Mass fraction] 88 % Randi Silvestre [facility].; [facility], [facility]. 07-06-2021 13:24-0400 Systolic blood pressure 106 mm[Hg] Randi Silvestre [facility].; [facility], [facility]. 07-06-2021 13:24-0400 3 L/min Randi Silvestre [facility].; [facility], [facility]. 07-06-2021 09:53-0400 Body temperature 98.01 [degF] Андрей Claros RN [facility] 07-06-2021 09:53-0400 Diastolic blood pressure 80 mm[Hg] Андрей Claros RN [facility] 07-06-2021 09:53-0400 Heart rate 76 /min Андрей Claros RN [facility] 07-06-2021 09:53-0400 Respiratory rate 16 /min Андрей Claros RN [facility] 07-06-2021 09:53-0400 SaO2% (BldA) [Mass fraction] 97 % Андрей Claros RN [facility] 07-06-2021 09:53-0400 Systolic blood pressure 136 mm[Hg] Андрей Claros RN [facility] 07-02-2021 09:14-0400 Body height 163.83 cm Varsha Upton LPN [facility], [facility].; [facility], [facility]. 07-02-2021 09:14-0400 Body mass index (BMI) [Ratio] 31.6 kg/m2 Varsha Upton LPN [facility].; [facility], [facility]. 07-02-2021 09:14-0400 Body surface area Derived from formula 1.91 m2 Varsha Upton LPN [facility], [facility].; [facility], [facility]. 07-02-2021 09:14-0400 Body temperature 101.6 [degF] Varsha Upton LPN [facility], [facility].; [facility], [facility]. 07-02-2021 09:14-0400 Body weight 84.82 kg Varsha Upton LPN [facility], [facility].; [facility]. 07-02-2021 09:14-0400 Diastolic blood pressure 70 mm[Hg] Varsha Upton LPN [facility].; [facility]. 07-02-2021 09:14-0400 Heart rate 112 /min Varsha Upton LPN [facility].; [facility]. 07-02-2021 09:14-0400 Inhaled oxygen concentration 20 % Varsha Upton LPN [facility].; [facility]. 07-02-2021 09:14-0400 SaO2% (BldA) [Mass fraction] 78 % Varsha Upton LPN [facility].; [facility] 07-02-2021 09:14-0400 Systolic blood pressure 136 mm[Hg] Varsha Upton LPN [facility].; [facility]. 06-29-2021 09:39-0400 Body temperature 98.1 [degF] Андрей Claros RN [facility] 06-29-2021 09:39-0400 Diastolic blood pressure 62 mm[Hg] Андрей Hyacinth RN [facility] 06-29-2021 09:39-0400 Heart rate 73 /min Андрей Hyacinth RN [facility] 06-29-2021 09:39-0400 Respiratory rate 18 /min Андрей Hyacinth HALEY [facility] 06-29-2021 09:39-0400 Systolic blood pressure 108 mm[Hg] Андрей Hyacinth RN [facility] 06-22-2021 11:15-0400 Body temperature 97.81 [degF] Андрей Claros RN [facility] 06-22-2021 11:15-0400 Diastolic blood pressure 60 mm[Hg] Андрей Hyacinth RN [facility] 06-22-2021 11:15-0400 Heart rate 84 /min Андрей Claros RN [facility] 06-22-2021 11:15-0400 Respiratory rate 16 /min Андрей Claros RN [facility] 06-22-2021 11:15-0400 SaO2% (BldA) [Mass fraction] 89 % Андрей Claros RN [facility] 06-22-2021 11:15-0400 Systolic blood pressure 110 mm[Hg] Андрей Claros RN [facility] 06-15-2021 11:06-0400 Body temperature 98.49 [degF] Андрей Claros RN [facility] 06-15-2021 11:06-0400 Diastolic blood pressure 68 mm[Hg] Андрей Claros RN [facility] 06-15-2021 11:06-0400 Heart rate 78 /min Андрей Claros RN [facility] 06-15-2021 11:06-0400 Respiratory rate 16 /min Андрей Claros RN [facility] 06-15-2021 11:06-0400 SaO2% (BldA) [Mass fraction] 89 % Андрей Claros RN [facility] 06-15-2021 11:06-0400 Systolic blood pressure 104 mm[Hg] Андрей Claros RN [facility] 06-08-2021 10:05-0400 Body temperature 98.01 [degF] Андрей Claros RN [facility] 06-08-2021 10:05-0400 Diastolic blood pressure 58 mm[Hg] Андрей Claros RN [facility] 06-08-2021 10:05-0400 Heart rate 76 /min Андрей Claros RN [facility] 06-08-2021 10:05-0400 Respiratory rate 16 /min Андрей Claros RN [facility] 06-08-2021 10:05-0400 SaO2% (BldA) [Mass fraction] 92 % Андрей Claros RN [facility] 06-08-2021 10:05-0400 Systolic blood pressure 104 mm[Hg] Андрей Claros RN [facility] 06-01-2021 09:29-0400 Body temperature 98.49 [degF] Андрей Claros RN [facility] 06-01-2021 09:29-0400 Diastolic blood pressure 60 mm[Hg] Андрей Claros RN [facility] 06-01-2021 09:29-0400 Heart rate 62 /min Андрей Claros RN [facility] 06-01-2021 09:29-0400 Respiratory rate 18 /min Андрей Claros RN [facility] 06-01-2021 09:29-0400 SaO2% (BldA) [Mass fraction] 94 % Андрей Claros RN [facility] 06-01-2021 09:29-0400 Systolic blood pressure 104 mm[Hg] Андрей Claros RN [facility] 05-26-2021 09:46-0400 Body temperature 97.5 [degF] Андрей Claros RN [facility] 05-26-2021 09:46-0400 Diastolic blood pressure 60 mm[Hg] Андрей Claros RN [facility] 05-26-2021 09:46-0400 Heart rate 77 /min Андрей Claros RN [facility] 05-26-2021 09:46-0400 Respiratory rate 18 /min Андрей Claros RN [facility] 05-26-2021 09:46-0400 SaO2% (BldA) [Mass fraction] 93 % Андрей Claros RN [facility] 05-26-2021 09:46-0400 Systolic blood pressure 138 mm[Hg] Андрей Claros RN [facility] 05-17-2021 10:23-0500 Body temperature 98.4 [degF] Андрей Claros RN [facility] 05-17-2021 10:23-0500 Diastolic blood pressure 60 mm[Hg] Андрей Claros RN [facility] 05-17-2021 10:23-0500 Heart rate 74 /min Андрей Claros RN [facility] 05-17-2021 10:23-0500 Respiratory rate 16 /min Андрей Claros RN [facility] 05-17-2021 10:23-0500 SaO2% (BldA) [Mass fraction] 92 % Андрей Claros RN [facility] 05-17-2021 10:23-0500 Systolic blood pressure 120 mm[Hg] Андрей Claros RN [facility] 05-05-2021 10:49-0500 Body temperature 97.7 [degF] Андрей Claros RN [facility] 05-05-2021 10:49-0500 Diastolic blood pressure 74 mm[Hg] Андрей Claros RN [facility] 05-05-2021 10:49-0500 Heart rate 67 /min Андрей Claros RN [facility] 05-05-2021 10:49-0500 Respiratory rate 16 /min Андрей Claros RN [facility] 05-05-2021 10:49-0500 SaO2% (BldA) [Mass fraction] 96 % Андрей Claros RN [facility] 05-05-2021 10:49-0500 Systolic blood pressure 112 mm[Hg] Андрей Claros RN [facility] 04-28-2021 10:01-0500 Body temperature 97.59 [degF] Андрей Claros RN [facility] 04-28-2021 10:01-0500 Diastolic blood pressure 50 mm[Hg] Андрей Claros RN [facility] 04-28-2021 10:01-0500 Heart rate 76 /min Андрей Claros RN [facility] 04-28-2021 10:01-0500 Respiratory rate 16 /min Андрей Claros RN [facility] 04-28-2021 10:01-0500 SaO2% (BldA) [Mass fraction] 97 % Андрей Claros RN [facility] 04-28-2021 10:01-0500 Systolic blood pressure 112 mm[Hg] Андрей Claros RN [facility] 04-23-2021 11:42-0500 Body temperature 97.59 [degF] Андрей Claros RN [facility] 04-23-2021 11:42-0500 Diastolic blood pressure 70 mm[Hg] Андрей Claros RN [facility] 04-23-2021 11:42-0500 Heart rate 76 /min Андрей Claros RN [facility] 04-23-2021 11:42-0500 Respiratory rate 16 /min Андрей Claros RN [facility] 04-23-2021 11:42-0500 SaO2% (BldA) [Mass fraction] 97 % Андрей Claros RN [facility] 04-23-2021 11:42-0500 Systolic blood pressure 118 mm[Hg] Андрей Claros RN [facility] 04-09-2021 11:23-0500 Body temperature 98.01 [degF] Андрей Claros RN [facility] 04-09-2021 11:23-0500 Diastolic blood pressure 50 mm[Hg] Андрей Claros RN [facility] 04-09-2021 11:23-0500 Heart rate 64 /min Андрей Claros RN [facility] 04-09-2021 11:23-0500 Respiratory rate 16 /min Андрей Claros RN [facility] 04-09-2021 11:23-0500 SaO2% (BldA) [Mass fraction] 95 % Андрей Claros RN [facility] 04-09-2021 11:23-0500 Systolic blood pressure 106 mm[Hg] Андрей Claros RN [facility] 04-01-2021 09:25-0500 Body height 163.83 cm Rosy Tavarez LPN [facility], [facility].; [facility], [facility]. 04-01-2021 09:25-0500 Body mass index (BMI) [Ratio] 31.6 kg/m2 Rosy Tavarez LPN [facility], [facility].; [facility], [facility] 04-01-2021 09:25-0500 Body surface area Derived from formula 1.91 m2 Rosy Tavarez LPN [facility].; [facility]. 04-01-2021 09:25-0500 Body weight 84.82 kg Rosy Tavarez [facility].; [facility]. 04-01-2021 09:25-0500 Diastolic blood pressure 68 mm[Hg] Rosy Tavarez [facility].; [facility]. 04-01-2021 09:25-0500 Heart rate 74 /min [facility]. 04-01-2021 09:25-0500 Systolic blood pressure 118 mm[Hg] Rosy Tavarez [facility].; [facility]. 03-31-2021 10:24-0500 Body temperature 98.2 [degF] Андрей Claros RN [facility] 03-31-2021 10:24-0500 Diastolic blood pressure 60 mm[Hg] Андрей Claros RN [facility] 03-31-2021 10:24-0500 Heart rate 65 /min Андрей Claros RN [facility] 03-31-2021 10:24-0500 Respiratory rate 16 /min Андрей Claros RN [facility] 03-31-2021 10:24-0500 SaO2% (BldA) [Mass fraction] 95 % Андрей Claros RN [facility] 03-31-2021 10:24-0500 Systolic blood pressure 104 mm[Hg] Андрей Claros RN [facility] 03-22-2021 14:10-0500 Body temperature 98.91 [degF] Андрей Claros RN [facility] 03-22-2021 14:10-0500 Diastolic blood pressure 58 mm[Hg] Андрей Claros RN [facility] 03-22-2021 14:10-0500 Heart rate 68 /min Андрей Claros RN [facility] 03-22-2021 14:10-0500 Respiratory rate 16 /min Андрей Claros RN [facility] 03-22-2021 14:10-0500 SaO2% (BldA) [Mass fraction] 97 % Андрей Claros RN [facility] 03-22-2021 14:10-0500 Systolic blood pressure 104 mm[Hg] Андрей Claros RN [facility] 03-19-2021 15:04-0500 Body temperature 97.9 [degF] Андрей Claros RN [facility] 03-19-2021 15:04-0500 Diastolic blood pressure 48 mm[Hg] Андрей Claros RN [facility] 03-19-2021 15:04-0500 Heart rate 62 /min Андрей Claros RN [facility] 03-19-2021 15:04-0500 Respiratory rate 16 /min Андрей Claros RN [facility] 03-19-2021 15:04-0500 SaO2% (BldA) [Mass fraction] 96 % Андрей Claros RN [facility] 03-19-2021 15:04-0500 Systolic blood pressure 98 mm[Hg] Андрей Claros RN [facility] 03-17-2021 09:16-0500 Body temperature 98.8 [degF] Ewa Garcia [facility] 03-17-2021 09:16-0500 Diastolic blood pressure 58 mm[Hg] Ewa Garcia [facility] 03-17-2021 09:16-0500 Heart rate 74 /min Ewa Garcia [facility] 03-17-2021 09:16-0500 Respiratory rate 16 /min Ewa Garcia [facility] 03-17-2021 09:16-0500 SaO2% (BldA) [Mass fraction] 95 % Ewa Garcia [facility] 03-17-2021 09:16-0500 Systolic blood pressure 116 mm[Hg] Ewa Garcia [facility] 03-10-2021 12:19-0500 Body temperature 98.1 [degF] Андрей Claros RN [facility] 03-10-2021 12:19-0500 Diastolic blood pressure 60 mm[Hg] Андрей Claros RN [facility] 03-10-2021 12:19-0500 Heart rate 64 /min Андрей Claros RN [facility] 03-10-2021 12:19-0500 Respiratory rate 14 /min Андрей Claros RN [facility] 03-10-2021 12:19-0500 SaO2% (BldA) [Mass fraction] 97 % Андрей Claros RN [facility] 03-10-2021 12:19-0500 Systolic blood pressure 104 mm[Hg] Андрей Claros RN [facility] 03-05-2021 11:46-0500 Body mass index (BMI) [Ratio] 28.19 kg/m2 Melida Cook [facility] 03-05-2021 11:46-0500 Body temperature 97.59 [degF] Melida Cook RN [facility] 03-05-2021 11:46-0500 Body weight 81.65 kg Melida Cook RN [facility] 03-05-2021 11:46-0500 Diastolic blood pressure 70 mm[Hg] Melida Cook RN [facility] 03-05-2021 11:46-0500 Heart rate 65 /min Melida Cook RN [facility] 03-05-2021 11:46-0500 Respiratory rate 18 /min Melida Cook RN [facility] 03-05-2021 11:46-0500 SaO2% (BldA) [Mass fraction] 96 % Melida Cook [facility] 03-05-2021 11:46-0500 Systolic blood pressure 110 mm[Hg] Melida Cook [facility] 03-03-2021 11:38-0500 Body temperature 98.01 [degF] Андрей Claros RN [facility] 03-03-2021 11:38-0500 Diastolic blood pressure 62 mm[Hg] Андрей Claros RN [facility] 03-03-2021 11:38-0500 Heart rate 77 /min Андрей Claros RN [facility] 03-03-2021 11:38-0500 Respiratory rate 16 /min Андрей Claros RN [facility] 03-03-2021 11:38-0500 SaO2% (BldA) [Mass fraction] 98 % Андрей Claros RN [facility] 03-03-2021 11:38-0500 Systolic blood pressure 104 mm[Hg] Андрей Claros RN [facility] 02-19-2021 12:01-0500 Body temperature 98.01 [degF] Rosy Rodriguez RN [facility] 02-19-2021 12:01-0500 Heart rate 70 /min Rosy Rodriguez RN [facility] 02-19-2021 12:01-0500 Respiratory rate 16 /min Rosy Rodriguez RN [facility] 02-19-2021 12:01-0500 SaO2% (BldA) [Mass fraction] 98 % Rosy Rodriguez RN [facility] 02-15-2021 13:04-0500 Body temperature 98.01 [degF] Rosy Rodriguez RN [facility] 02-15-2021 13:04-0500 Diastolic blood pressure 70 mm[Hg] Rosy Rodriguez RN [facility] 02-15-2021 13:04-0500 Heart rate 77 /min Rosy Rodriguez RN [facility] 02-15-2021 13:04-0500 Respiratory rate 16 /min Rosy Rodriguez RN [facility] 02-15-2021 13:04-0500 SaO2% (BldA) [Mass fraction] 94 % Rosy Rodriguez RN [facility] 02-15-2021 13:04-0500 Systolic blood pressure 120 mm[Hg] Rosy Rodriguez RN [facility] 02-05-2021 14:04-0500 Body temperature 98.01 [degF] Rosy Rodriguez RN [facility] 02-05-2021 14:04-0500 Heart rate 70 /min Rosy Rodriguez RN [facility] 02-05-2021 14:04-0500 Respiratory rate 16 /min Rosy Rodriguez RN [facility] 02-05-2021 14:04-0500 SaO2% (BldA) [Mass fraction] 96 % Rosy Rodriguez RN [facility] 02-03-2021 10:57-0500 Body height 170.2 cm Jalil Sparks MD Work Phone: [facility] 02-03-2021 10:57-0500 Body mass index (BMI) [Ratio] 27.91 kg/m2 Jalil Sparks MD Work Phone: [facility] 02-03-2021 10:57-0500 Body temperature 97.3 [degF] Jalil Sparks MD Work Phone: [facility] 02-03-2021 10:57-0500 Body weight 80.83 kg Jalil Sparks MD Work Phone: [facility] 02-03-2021 10:57-0500 Diastolic blood pressure 58 mm[Hg] Jalil Sparks MD Work Phone: [facility] 02-03-2021 10:57-0500 Heart rate 75 /min Jalil Sparks MD Work Phone: [facility] 02-03-2021 10:57-0500 SaO2% (BldA) [Mass fraction] 96 % Jalil Sparks MD Work Phone: [facility] 02-03-2021 10:57-0500 Systolic blood pressure 111 mm[Hg] Jalil Sparks MD Work Phone: [facility] 02-03-2021 08:24-0500 Body temperature 98.1 [degF] Bonnie Ferguson RN [facility] 02-03-2021 08:24-0500 Diastolic blood pressure 50 mm[Hg] Bonnie Ferguson RN [facility] 02-03-2021 08:24-0500 Heart rate 75 /min Bonnie Ferguson RN [facility] 02-03-2021 08:24-0500 Respiratory rate 18 /min Bonnie Ferguson RN [facility] 02-03-2021 08:24-0500 SaO2% (BldA) [Mass fraction] 96 % Bonnie Ferguson [facility] 02-03-2021 08:24-0500 Systolic blood pressure 132 mm[Hg] Bonnie Ferguson RN [facility] 02-01-2021 14:13-0500 Body temperature 98.01 [degF] Rosy Rodriguez RN [facility] 02-01-2021 14:13-0500 Respiratory rate 16 /min Rosy Rodriguez RN [facility] 02-01-2021 14:13-0500 SaO2% (BldA) [Mass fraction] 96 % Rosy Rodriguez RN [facility] 01-29-2021 00:00-0500 Body temperature 98.01 [degF] Rosy Rodriguez RN [facility] 01-29-2021 00:00-0500 Diastolic blood pressure 60 mm[Hg] Rosy Rodriguez RN [facility] 01-29-2021 00:00-0500 Heart rate 78 /min Rosy Rodriguez RN [facility] 01-29-2021 00:00-0500 Respiratory rate 16 /min Rosy [place]ington RN [facility] 01-29-2021 00:00-0500 SaO2% (BldA) [Mass fraction] 96 % Rosy Rodriguez RN [facility] 01-29-2021 00:00-0500 Systolic blood pressure 110 mm[Hg] Rosy Rodriguez RN [facility] 01-27-2021 10:02-0500 Body temperature 98.01 [degF] Rosy Rodriguez RN [facility] 01-27-2021 10:02-0500 Diastolic blood pressure 60 mm[Hg] Rosy Rodriguez RN [facility] 01-27-2021 10:02-0500 Heart rate 80 /min Rosy Rodriguez RN [facility] 01-27-2021 10:02-0500 Respiratory rate 16 /min Rosy Rodriguez RN [facility] 01-27-2021 10:02-0500 SaO2% (BldA) [Mass fraction] 94 % Rosy [place] RN [facility] 01-27-2021 10:02-0500 Systolic blood pressure 110 mm[Hg] Rosy Jennifer RN [facility] 01-25-2021 10:00-0500 Body temperature 98.01 [degF] Rosy Jennifer RN [facility] 01-25-2021 10:00-0500 Diastolic blood pressure 70 mm[Hg] Rosy Rodriguez RN [facility] 01-25-2021 10:00-0500 Heart rate 88 /min Rosy Jennifer RN [facility] 01-25-2021 10:00-0500 Respiratory rate 16 /min Rosy Jennifer RN [facility] 01-25-2021 10:00-0500 SaO2% (BldA) [Mass fraction] 98 % Rosy [place] RN [facility] 01-25-2021 10:00-0500 Systolic blood pressure 110 mm[Hg] Rosy Jennifer RN [facility] 01-22-2021 13:55-0500 Body mass index (BMI) [Ratio] 27.72 kg/m2 Rosy Jennifer RN [facility] 01-22-2021 13:55-0500 Body weight 80.29 kg Rosy Jennifer RN [facility] 01-22-2021 13:55-0500 Diastolic blood pressure 80 mm[Hg] Rosy Rodriguez RN [facility] 01-22-2021 13:55-0500 Systolic blood pressure 101 mm[Hg] Rosy Rodriguez RN [facility] 01-20-2021 10:22-0500 Body temperature 98.2 [degF] Alyssa Cortez RN [facility] 01-20-2021 10:22-0500 Heart rate 63 /min Alyssa Cortez RN [facility] 01-20-2021 10:22-0500 SaO2% (BldA) [Mass fraction] 93 % Alyssa Cortez RN [facility] 01-13-2021 15:21-0400 Body height 170.2 cm Jalil Sparks MD Work Phone: [place] [address]-03-2021 15:21-0400 Body temperature 97.59 [degF] Jalil Sparks MD Work Phone: [facility] 01-13-2021 15:21-0400 Diastolic blood pressure 73 mm[Hg] Jalil Sparks MD Work Phone: [facility] 01-13-2021 15:21-0400 Heart rate 68 /min Jalil Sparks MD Work Phone: [facility] 01-13-2021 15:21-0400 SaO2% (BldA) [Mass fraction] 91 % Jalil Sparks MD Work Phone: [facility] 01-13-2021 15:21-0400 Systolic blood pressure 146 mm[Hg] Jalil Sparks MD Work Phone: [facility] 01-04-2021 14:50-0400 Body height 170.2 cm [place] Hawk HIM CODER Work Phone: [facility] 01-04-2021 14:50-0400 Body mass index (BMI) [Ratio] 29.76 kg/m2 Park Hawk HIM CODER Work Phone: [facility] 01-04-2021 14:50-0400 Body weight 86.18 kg [place] Hawk HIM CODER Work Phone: [facility] 01-04-2021 14:50-0400 Diastolic blood pressure 57 mm[Hg] Park Hawk HIM CODER Work Phone: [facility] 01-04-2021 14:50-0400 Heart rate 74 /min Park Hawk HIM CODER Work Phone: [facility] 01-04-2021 14:50-0400 Systolic blood pressure 132 mm[Hg] Park Hawk HIM CODER Work Phone: [facility] 12-17-2020 12:11-0400 Body height 170.2 cm Lenin Ramirez MD Work Phone: [facility] 12-17-2020 12:11-0400 Body mass index (BMI) [Ratio] 30.23 kg/m2 Lenin Ramirez MD Work Phone: [facility] 12-17-2020 12:11-0400 Body weight 87.54 kg Lenin Ramirez MD Work Phone: [facility] 12-17-2020 12:11-0400 Diastolic blood pressure 77 mm[Hg] Lenin Ramirez MD Work Phone: [facility] 12-17-2020 12:11-0400 Heart rate 63 /min Lenin Ramirez MD Work Phone: [facility] 12-17-2020 12:11-0400 SaO2% (BldA) [Mass fraction] 90 % Lenin Ramirez MD Work Phone: [facility] 12-17-2020 12:11-0400 Systolic blood pressure 129 mm[Hg] Lenin Ramirez MD Work Phone: [facility] 11-23-2020 12:52-0400 Body height 170.2 cm Park Hawk CNP Work Phone: [facility] 11-23-2020 12:52-0400 Body mass index (BMI) [Ratio] 29.44 kg/m2 Park Hawk CNP Work Phone: [facility] 11-23-2020 12:52-0400 Body weight 85.28 kg Park Hawk CNP Work Phone: [facility] 11-23-2020 12:52-0400 Diastolic blood pressure 76 mm[Hg] Park Hawk CNP Work Phone: [facility] 11-23-2020 12:52-0400 Heart rate 63 /min Park Hawk HIM CODER Work Phone: [facility] 11-23-2020 12:52-0400 SaO2% (BldA) [Mass fraction] 90 % Park Hawk HIM CODER Work Phone: [facility] 11-23-2020 12:52-0400 Systolic blood pressure 131 mm[Hg] Park Hawk HIM CODER Work Phone: [facility] 10-26-2020 07:55-0400 Body height 170.2 cm Park Hawk CNP Work Phone: [facility] 10-26-2020 07:55-0400 Body mass index (BMI) [Ratio] 29.29 kg/m2 Park Hawk CNP Work Phone: [facility] 10-26-2020 07:55-0400 Body weight 84.82 kg Park Hawk CNP Work Phone: [facility] 10-26-2020 07:55-0400 Diastolic blood pressure 77 mm[Hg] Park Hawk CNP Work Phone: [facility] 10-26-2020 07:55-0400 Heart rate 66 /min Park Hawk CNP Work Phone: [facility] 10-26-2020 07:55-0400 SaO2% (BldA) [Mass fraction] 84 % Park Hawk CNP Work Phone: [facility] 10-26-2020 07:55-0400 Systolic blood pressure 143 mm[Hg] Park Hawk CNP Work Phone: [facility] 10-21-2020 08:11-0400 Diastolic blood pressure 89 mm[Hg] Mil Dee MD Work Phone: [facility] 10-21-2020 08:11-0400 Systolic blood pressure 164 mm[Hg] Mil Dee MD Work Phone: [facility] 10-21-2020 08:07-0400 Body height 170.2 cm Mil Dee MD Work Phone: [facility] 10-21-2020 08:07-0400 Body temperature 98.2 [degF] Mil Dee MD Work Phone: [facility] 10-21-2020 08:07-0400 Heart rate 74 /min Mil Dee MD Work Phone: [facility] 10-06-2020 08:15-0400 Body height 163.83 cm [facility] 10-06-2020 08:15-0400 Body mass index (BMI) [Ratio] 31.26 kg/m2 Muna Townsend [facility], [facility].; [facility]. 10-06-2020 08:15-0400 Body surface area Derived from formula 1.[address] [facility].; [facility]. 10-06-2020 08:15-0400 Body weight 83.92 kg Muna Townsend [facility], [facility].; [facility]. 10-06-2020 08:15-0400 Diastolic blood pressure 73 mm[Hg] [facility], [facility].; [facility], [facility]. 10-06-2020 08:15-0400 Heart rate 75 /min [facility].; [facility]. 10-06-2020 08:15-0400 Inhaled oxygen concentration 20 % [facility]. 10-06-2020 08:15-0400 SaO2% (BldA) [Mass fraction] 97 % [facility], [facility].; [employer] [facility], [facility]. 10-06-2020 08:15-0400 Systolic blood pressure 152 mm[Hg] [facility], [facility].; [place] [employer] [facility]. 09-30-2020 08:21-0400 Body mass index (BMI) [Ratio] 28.35 kg/m2 Leonila Walls RN [facility] 09-30-2020 [id number] Body weight 82.1 kg Leonila Walls RN [facility] 09-30-2020 08:21-0400 Diastolic blood pressure 73 mm[Hg] Leonila Walls RN [facility] 09-30-2020 08:21-0400 Heart rate 55 /min Leonila Walls RN [facility] 09-30-2020 08:21-0400 Respiratory rate 16 /min Leonila Walls RN [facility] 09-30-2020 [id number] SaO2% (BldA) [Mass fraction] 98 % Leonila Walls RN [facility] 09-30-2020 [id number] Systolic blood pressure 129 mm[Hg] Leonila Walls RN [facility] 08-11-2020 08:26-0400 Body height 163.83 cm [facility], [facility].; [facility]. 08-11-2020 [id number] Body mass index (BMI) [Ratio] 33.29 kg/m2 [facility], [facility].; [facility]. 08-11-2020 08:0400 Body surface area Derived from formula 1.95 m2 [facility], [facility].; [facility], [facility]. 08-11-2020 08:0400 Body weight 89.36 kg [facility], [facility].; [facility], [facility]. 08-11-2020 [id number] Diastolic blood pressure 64 mm[Hg] [facility], [facility].; [facility], [facility]. 08-11-2020 08:0400 Heart rate 71 /min [facility], [facility].; [facility], [facility]. 08-11-2020 08:26-0400 Systolic blood pressure 138 mm[Hg] [facility], [facility].; [place] [facility], [facility]. 08-03-2020 [id number] Body mass index (BMI) [Ratio] 30.85 kg/m2 Leonila Walls RN [facility] 08-03-2020 13:0400 Body weight 89.36 kg Leonila Walls RN [facility] 08-03-2020 13:0400 Diastolic blood pressure 76 mm[Hg] Leonila Walls RN [facility] 08-03-2020 [id number] Heart rate 68 /min Leonila Walls RN [facility] 08-03-2020 13:0400 Respiratory rate 16 /min Leonila [facility] 08-03-2020 13:21-0400 SaO2% (BldA) [Mass fraction] 93 % Leonila [facility] 08-03-2020 13:21-0400 Systolic blood pressure 139 mm[Hg] Leonilaeloy Walls [facility] 06-19-2020 10:40-0400 BMI (Body Mass Index) 31.92 kg/m2 [facility] 06-19-2020 10:40-0400 Body weight 92.44 kg [facility] 06-19-2020 10:40-0400 BP Diastolic 79 mm[Hg] [facility] 06-19-2020 10:40-0400 BP Systolic 147 mm[Hg] [facility] 06-19-2020 10:40-0400 Pulse (Heart Rate) 62 /min [facility] 06-19-2020 10:40-0400 Pulse Oximetry 94 % [facility] 06-19-2020 10:40-0400 Respiratory Rate 16 /min [facility] 04-20-2020 10:18-0500 BMI (Body Mass Index) 32.11 kg/m2 [facility] 04-20-2020 10:18-0500 Body weight 92.99 kg [facility] 04-20-2020 10:18-0500 BP Diastolic 76 mm[Hg] [facility] 04-20-2020 10:18-0500 BP Systolic 129 mm[Hg] [facility] 04-20-2020 10:18-0500 Pulse (Heart Rate) 66 /min [facility] 04-20-2020 10:18-0500 Pulse Oximetry 96 % [facility] 04-20-2020 10:18-0500 Respiratory Rate 16 /min [facility] 04-07-2020 09:08-0500 Body height 163.83 cm Muna Townsend LPN [facility], [facility]. 04-07-2020 09:08-0500 Body mass index (BMI) [Ratio] 34.98 kg/m2 [facility], [facility].; [facility], [facility]. 04-07-2020 09:08-0500 Body surface area Derived from formula 2 m2 Muna Townsend [facility], [facility].; [facility], [facility]. 04-07-2020 09:08-0500 Body weight 93.9 kg Muna Townsend [facility], [facility].; [facility], [facility]. 04-07-2020 09:08-0500 Diastolic blood pressure 76 mm[Hg] Muna Townsend [facility], [facility].; [facility], [facility]. 04-07-2020 09:08-0500 Heart rate 91 /min Muna Townsend [facility], [facility].; [facility], [facility]. 04-07-2020 09:08-0500 Systolic blood pressure 137 mm[Hg] Muan Townsend [facility], [facility].; [facility], [facility]. 03-26-2020 10:27-0500 BP Diastolic 64 mm[Hg] [facility] 03-26-2020 10:27-0500 BP Systolic 130 mm[Hg] Lenin Ramirez [facility] 03-26-2020 10:27-0500 Pulse (Heart Rate) 62 /min Lenin Ramirez [facility] 02-17-2020 10:14-0500 BMI (Body Mass Index) 31.84 kg/m2 [facility] 02-17-2020 10:14-0500 Body weight 92.22 kg [facility] 02-17-2020 10:14-0500 BP Diastolic 74 mm[Hg] [facility] 02-17-2020 10:14-0500 BP Systolic 140 mm[Hg] [facility] 02-17-2020 10:14-0500 Pulse (Heart Rate) 62 /min [facility] 02-17-2020 10:14-0500 Pulse Oximetry 97 % [facility] 02-17-2020 10:14-0500 Respiratory Rate 16 /min [facility] 12-23-2019 10:12-0400 BMI (Body Mass Index) 32.7 kg/m2 [facility] 12-23-2019 10:12-0400 Body weight 94.71 kg [facility] 12-23-2019 10:12-0400 BP Diastolic 73 mm[Hg] [facility] 12-23-2019 10:12-0400 BP Systolic 136 mm[Hg] [facility] 12-23-2019 10:12-0400 Pulse (Heart Rate) 62 /min [facility] 12-23-2019 10:120400 Pulse Oximetry 95 % [facility] 12-23-2019 10:120400 Respiratory Rate 16 /min [facility] 11-27-2019 11:10-0400 Body height 163.83 cm Muna Townsend [employer] SAL[employer] REPRESENTATIVE [facility], [facility].; [place] [employer] [facility], [employer]. 11-27-2019 11:10-0400 Body mass index (BMI) [Ratio] 36.5 kg/m2 [facility] [place] [employer] [facility], [employer]. 11-27-2019 11:10-0400 Body surface area Derived from formula 2.03 m2 [facility], [facility].; [place] [employer] [facility], [employer]. 11-27-2019 11:10-0400 Body weight 97.[address] [facility] [employer] [facility], [employer]. 11-27-2019 11:10-0400 Diastolic blood pressure 82 mm[Hg] Adeline Stuckey [facility] [place] [employer] [facility], [employer]. 11-27-2019 11:10-0400 Heart rate 69 /min [facility], [facility].; [place] [employer] [facility], [employer]. 11-27-2019 11:10-0400 Inhaled oxygen concentration 20 % [facility], [facility].; [employer], [employer]. 11-27-2019 11:10-0400 SaO2% (BldA) [Mass fraction] 93 % [facility], [facility].; [place] [facility]. 11-27-2019 11:10-0400 Systolic blood pressure 160 mm[Hg] Muna Townsend ASHER [facility], [facility].; [facility] 11-04-2019 10:07-0400 BMI (Body Mass Index) 34.3 kg/m2 [facility] 11-04-2019 10:07-0400 Body weight 99.34 kg [facility] 11-04-2019 10:07-0400 BP Diastolic 83 mm[Hg] [facility] 11-04-2019 10:07-0400 BP Systolic 150 mm[Hg] [facility] 11-04-2019 10:07-0400 Pulse (Heart Rate) 68 /min [facility] 11-04-2019 10:07-0400 Pulse Oximetry 95 % [facility] 11-04-2019 10:07-0400 Respiratory Rate 16 /min [facility] 09-20-2019 08:49-0400 Body height 163.83 cm Umu Nye RN [facility], [facility].; [place] [employer] [facility]. 09-20-2019 08:49-0400 Body mass index (BMI) [Ratio] 38.19 kg/m2 Umu Nye RN [facility], [facility].; [facility], [facility]. 09-20-2019 08:49-0400 Body surface area Derived from formula 2.07 m2 Umu Nye RN [facility], [facility].; [facility]. 09-20-2019 08:49-0400 Body weight 102.51 kg Umu Nye RN [facility], [facility].; [place] [employer] [facility], [facility]. 09-20-2019 08:49-0400 Diastolic blood pressure 72 mm[Hg] Umu Nye RN [facility], [facility].; [facility], [facility]. 09-20-2019 08:49-0400 Heart rate 69 /min Umu Nye RN [facility], [facility].; [place] [employer] [facility], [facility]. 09-20-2019 08:49-0400 Systolic blood pressure 129 mm[Hg] Umu Nye RN [facility], [facility].; [facility] 09-09-2019 10:12-0400 BMI (Body Mass Index) 33.99 kg/m2 [facility] 09-09-2019 10:12-0400 Body weight 98.43 kg [facility] 09-09-2019 10:12-0400 BP Diastolic 84 mm[Hg] [facility] 09-09-2019 10:12-0400 BP Systolic 152 mm[Hg] [facility] 09-09-2019 10:12-0400 Pulse (Heart Rate) 72 /min [facility] 09-09-2019 10:12-0400 Pulse Oximetry 96 % [facility] 09-09-2019 10:12-0400 Respiratory Rate 16 /min [facility] 07-31-2019 09:20-0400 BMI (Body Mass Index) 34.44 kg/m2 [facility] 07-31-2019 09:20-0400 Body weight 99.75 kg [facility] 07-31-2019 09:20-0400 BP Diastolic 88 mm[Hg] [facility] 07-31-2019 09:20-0400 BP Systolic 169 mm[Hg] [facility] 07-31-2019 09:20-0400 Pulse (Heart Rate) 72 /min [facility] 07-31-2019 09:20-0400 Pulse Oximetry 94 % [facility] 07-31-2019 09:20-0400 Respiratory Rate 16 /min [facility] 06-06-2019 13:03-0400 Body height 163.83 cm Rosy Tavarez LPN [facility], [facility]. 06-06-2019 13:03-0400 Body mass index (BMI) [Ratio] 36.67 kg/m2 Rosy Tavarez LPN [facility], [facility]. 06-06-2019 13:03-0400 Body surface area Derived from formula 2.04 m2 Rosy Tavarez LPN [facility], [facility]. 06-06-2019 13:03-0400 Body temperature 98 [degF] Rosy Balllabach [facility].; [employer] [facility]. 06-06-2019 13:03-0400 Body weight 98.43 kg Rosy Balllabach [facility].; [employer] [email or web address]. 06-06-2019 13:03-0400 Diastolic blood pressure 77 mm[Hg] Rosy Allison Corby [facility].; [employer] [facility]. 06-06-2019 13:03-0400 Heart rate 81 /min Rosy Balllabach [facility].; [place] [employer] [email or web address]. 06-06-2019 13:03-0400 Inhaled oxygen concentration 20 % Rosy Allison Corby [facility].; [employer] [email or web address] 06-06-2019 13:03-0400 SaO2% (BldA) [Mass fraction] 97 % Rosy Allison Corby [facility] [employer] [facility].; [employer]. 06-06-2019 13:03-0400 Systolic blood pressure 168 mm[Hg] Rosy [facility]labach [email or web address].; [employer] [email or web address]. 05-24-2019 10:08-0400 BMI (Body Mass Index) 34.24 kg/m2 [facility] 05-24-2019 10:08-0400 Body weight 99.16 kg [facility] 05-24-2019 10:08-0400 BP Diastolic 87 mm[Hg] [facility] 05-24-2019 10:08-0400 BP Systolic 139 mm[Hg] [facility] 05-24-2019 10:08-0400 Pulse (Heart Rate) 70 /min [facility] 05-24-2019 10:08-0400 Pulse Oximetry 93 % [facility] 05-24-2019 10:08-0400 Respiratory Rate 16 /min [facility] 03-27-2019 08:27-0500 Body height 163.83 cm Zack Olmos MD Work Phone: [employer]. 03-27-2019 08:27-0500 Body mass index (BMI) [Ratio] 38.19 kg/m2 Zack Olmos MD Work Phone: [employer].; [employer]. 03-27-2019 08:27-0500 Body surface area Derived from formula 2.07 m2 Zack Olmos MD Work Phone: [employer].; [employer]. 03-27-2019 08:27-0500 Body weight 102.51 kg Zack Olmos MD Work Phone: [employer].; [employer]. 03-27-2019 08:27-0500 Diastolic blood pressure 84 mm[Hg] Zack Olmos MD Work Phone: [employer].; [employer]. 03-27-2019 08:27-0500 Heart rate 66 /min Zack Olmos MD Work Phone: [employer].; [employer]. 03-27-2019 08:27-0500 Systolic blood pressure 157 mm[Hg] Zack Olmos MD Work Phone: [employer].; [employer]. 03-25-2019 10:21-0500 BP Diastolic 88 mm[Hg] [facility] 03-25-2019 10:21-0500 BP Systolic 178 mm[Hg] [facility] 03-25-2019 10:16-0500 Pulse (Heart Rate) 66 /min [facility] 03-25-2019 10:16-0500 Pulse Oximetry 94 % [facility] 03-25-2019 10:16-0500 Respiratory Rate 16 /min [facility] 02-28-2019 13:45-0500 BMI (Body Mass Index) 35.63 kg/m2 Lenin Fraserleatha [facility] 02-28-2019 13:45-0500 Body weight 103.19 kg Lenni James [facility] 02-28-2019 13:45-0500 BP Diastolic 82 mm[Hg] Lenin Ramierz [facility] 02-28-2019 13:45-0500 BP Systolic 153 mm[Hg] Lenin Ramirez [facility] 02-28-2019 13:45-0500 Height 170.2 cm Lenin Ramirez [facility] 02-28-2019 13:45-0500 Pulse (Heart Rate) 67 /min Lenin Ramirez [facility] 02-28-2019 13:45-0500 Pulse Oximetry 95 % Lenin Ramirez [facility] 01-28-2019 11:13-0500 BMI (Body Mass Index) 34.97 kg/m2 [facility] 01-28-2019 11:13-0500 Body weight 101.29 kg [facility] 01-28-2019 11:13-0500 BP Diastolic 85 mm[Hg] [facility] 01-28-2019 11:13-0500 BP Systolic 166 mm[Hg] [facility] 01-28-2019 11:13-0500 Pulse (Heart Rate) 62 /min [facility] 01-28-2019 11:13-0500 Pulse Oximetry 95 % [facility] 01-28-2019 11:13-0500 Respiratory Rate 16 /min [facility] 12-31-2018 10:05-0400 BMI (Body Mass Index) 34.54 kg/m2 [facility] 12-31-2018 10:05-0400 Body weight 100.02 kg [facility] 12-31-2018 10:05-0400 BP Diastolic 62 mm[Hg] [facility] 12-31-2018 10:05-0400 BP Systolic 150 mm[Hg] [facility] 12-31-2018 10:05-0400 Pulse (Heart Rate) 66 /min [facility] 12-31-2018 10:05-0400 Pulse Oximetry 94 % [facility] 12-31-2018 10:05-0400 Respiratory Rate 16 /min [facility] 11-30-2018 10:31-0400 BMI (Body Mass Index) 34.5 kg/m2 [facility] 11-30-2018 10:31-0400 Body weight 99.93 kg [facility] 11-30-2018 10:31-0400 BP Diastolic 88 mm[Hg] [facility] 11-30-2018 10:31-0400 BP Systolic 168 mm[Hg] [facility] 11-30-2018 10:31-0400 Pulse (Heart Rate) 62 /min [facility] 11-30-2018 10:31-0400 Pulse Oximetry 95 % [facility] 11-30-2018 10:31-0400 Respiratory Rate 16 /min [facility] 11-09-2018 10:09-0400 BMI (Body Mass Index) 34.43 kg/m2 [facility] 11-09-2018 10:09-0400 Body weight 99.7 kg [facility] 11-09-2018 10:09-0400 BP Diastolic 92 mm[Hg] [facility] 11-09-2018 10:09-0400 BP Systolic 155 mm[Hg] [facility] 11-09-2018 10:09-0400 Pulse (Heart Rate) 70 /min [facility] 10-12-2018 10:14-0400 BMI (Body Mass Index) 34.28 kg/m2 [facility] 10-12-2018 10:14-0400 Body weight 99.29 kg [facility] 10-12-2018 10:14-0400 BP Diastolic 92 mm[Hg] [facility] 10-12-2018 10:14-0400 BP Systolic 153 mm[Hg] [facility] 10-12-2018 10:14-0400 Pulse (Heart Rate) 70 /min [facility] 10-12-2018 10:14-0400 Pulse Oximetry 93 % [facility] 10-12-2018 10:14-0400 Respiratory Rate 16 /min [facility] 09-25-2018 09:23-0400 Body height 163.83 cm Zack Olmos MD Work Phone: [facility].; [facility], [facility]. 09-25-2018 09:23-0400 Body mass index (BMI) [Ratio] 36.84 kg/m2 Zack Olmos MD Work Phone: [employer] 09-25-2018 09:23-0400 Body surface area Derived from formula 2.04 m2 Zack Olmos MD Work Phone: [employer].; [employer] 09-25-2018 09:23-0400 Body weight 98.88 kg Zack Olmos MD Work Phone: [employer].; [employer]. 09-25-2018 09:23-0400 Diastolic blood pressure 80 mm[Hg] Zack Olmos MD Work Phone: [employer].; [employer]. 09-25-2018 09:23-0400 Heart rate 76 /min Zack Olmos MD Work Phone: [employer].; [employer]. 09-25-2018 09:23-0400 Systolic blood pressure 132 mm[Hg] Zack Olmos MD Work Phone: [employer].; [employer]. 09-21-2018 11:05-0400 BMI (Body Mass Index) 34.13 kg/m2 [facility] 09-21-2018 11:05-0400 Body weight 98.84 kg [facility] 09-21-2018 11:05-0400 BP Diastolic 77 mm[Hg] [facility] 09-21-2018 11:05-0400 BP Systolic 146 mm[Hg] [facility] 09-21-2018 11:05-0400 Pulse (Heart Rate) 66 /min [facility] 09-21-2018 11:05-0400 Pulse Oximetry 95 % [facility] 09-21-2018 11:05-0400 Respiratory Rate 16 /min [facility] 09-05-2018 11:20-0400 BP Diastolic 72 mm[Hg] [place] [facility] 09-05-2018 11:20-0400 BP Systolic 142 mm[Hg] [place] [facility] 09-05-2018 11:20-0400 Pulse (Heart Rate) 54 /min [place] [facility] 09-05-2018 10:55-0400 BMI (Body Mass Index) 33.39 kg/m2 [place] [facility] 09-05-2018 10:55-0400 Body weight 96.71 kg [place] [facility] 09-05-2018 10:55-0400 Height 170.2 cm [facility] 09-05-2018 10:55-0400 Pulse Oximetry 96 % [place] [facility] 08-31-2018 11:05-0400 BMI (Body Mass Index) 33.17 kg/m2 [facility] 08-31-2018 11:05-0400 BP Diastolic 88 mm[Hg] [facility] 08-31-2018 11:05-0400 BP Systolic 155 mm[Hg] [facility] 08-31-2018 11:05-0400 Pulse (Heart Rate) 50 /min [facility] 08-31-2018 11:05-0400 Pulse Oximetry 95 % [facility] 08-31-2018 11:05-0400 Respiratory Rate 16 /min [facility] 08-31-2018 11:05-0400 Weight 96.07 kg [facility] 08-10-2018 11:19-0400 BMI (Body Mass Index) 34 kg/m2 [facility] 08-10-2018 11:19-0400 BP Diastolic 78 mm[Hg] [facility] 08-10-2018 11:19-0400 BP Systolic 148 mm[Hg] [facility] 08-10-2018 11:19-0400 Pulse (Heart Rate) 72 /min [facility] 08-10-2018 11:19-0400 Pulse Oximetry 95 % [facility] 08-10-2018 11:19-0400 Respiratory Rate 16 /min [facility] 08-10-2018 11:19-0400 Weight 98.48 kg [facility] 08-03-2018 12:17-0400 BMI (Body Mass Index) 34.08 kg/m2 [facility] 08-03-2018 12:17-0400 BP Diastolic 84 mm[Hg] [facility] 08-03-2018 12:17-0400 BP Systolic 141 mm[Hg] [facility] 08-03-2018 12:17-0400 Pulse (Heart Rate) 66 /min [facility] 08-03-2018 12:17-0400 Pulse Oximetry 96 % [facility] 08-03-2018 12:17-0400 Respiratory Rate 16 /min [facility] 08-03-2018 12:17-0400 Weight 98.7 kg [facility] 07-26-2018 08:40-0400 BP Diastolic 72 mm[Hg] [facility] 07-26-2018 08:40-0400 BP Systolic 163 mm[Hg] [facility] 07-26-2018 08:40-0400 Pulse (Heart Rate) 76 /min [facility] 07-26-2018 08:03-0400 BMI (Body Mass Index) 34.57 kg/m2 [facility] 07-26-2018 08:03-0400 Height 170.2 cm [facility] 07-26-2018 08:03-0400 Pulse Oximetry 94 % [facility] 07-26-2018 08:03-0400 Weight 100.11 kg [facility] 07-20-2018 09:41-0400 BP Diastolic 84 mm[Hg] Lenin Ramirez [facility] 07-20-2018 09:41-0400 BP Systolic 144 mm[Hg] Lenin Ramirez [facility] 07-20-2018 09:41-0400 Pulse (Heart Rate) 92 /min Lenin Ramirez [facility] 05-30-2018 10:01-0400 Body height 163.83 cm Muna Townsend [employer] SALES REPRESENTATIVE [facility] [employer] [facility] 05-30-2018 10:01-0400 Body mass index (BMI) [Ratio] 37.35 kg/m2 Muna Townsend [employer] SALES REPRESENTATIVE [facility] [employer] [facility] 05-30-2018 10:01-0400 Body surface area Derived from formula 2.05 m2 Muna Townsend LPN [employer] [facility], [facility].; [employer]. 05-30-2018 10:01-0400 Body weight 100.25 kg Muna Townsend [employer] SALES REPRESENTATIVE [place] [employer] [facility].; [employer], [employer]. 05-30-2018 10:01-0400 Diastolic blood pressure 65 mm[Hg] Muna Townsend [employer] SALES REPRESENTATIVE [place] [employer] [facility].; [employer]. 05-30-2018 10:01-0400 Heart rate 38 /min Muna Townsend [employer] SALES REPRESENTATIVE [employer] [facility].; [employer]. 05-30-2018 10:01-0400 Inhaled oxygen concentration 20 % Muna Townsend [facility] [employer] [facility].; [employer], [employer]. 05-30-2018 10:01-0400 SaO2% (BldA) [Mass fraction] 97 % Muna Townsend [facility] [employer], [employer]. 05-30-2018 10:01-0400 Systolic blood pressure 132 mm[Hg] Muna Townsend [facility] [employer], [employer]. 05-17-2018 12:01-0500 BMI (Body Mass Index) 34.63 kg/m2 Lenin Ramirez [facility] 05-17-2018 12:01-0500 BP Diastolic 59 mm[Hg] Lenin Fraserleatha [facility] 05-17-2018 12:01-0500 BP Systolic 122 mm[Hg] Lenin Evelioleatha [facility] 05-17-2018 12:01-0500 Height 170.2 cm Lenin Davleatha [facility] 05-17-2018 12:01-0500 Pulse (Heart Rate) 39 /min Lenin Evelioleatha [facility] 05-17-2018 12:01-0500 Pulse Oximetry 92 % Lenin Davleatha [facility] 05-17-2018 12:01-0500 Weight 100.29 kg Lenin Davleatha [facility] 05-03-2018 12:15-0500 BMI (Body Mass Index) 36.77 kg/m2 Lenin Fraserleatha [facility] 05-03-2018 12:15-0500 BP Diastolic 85 mm[Hg] Lenin Ramirez [facility] 05-03-2018 12:15-0500 BP Systolic 147 mm[Hg] Lenin Ramirez [facility] 05-03-2018 12:15-0500 Height 170.2 cm Lenin Ramirez [facility] 05-03-2018 12:15-0500 Pulse (Heart Rate) 80 /min Lenin Ramirez [facility] 05-03-2018 12:15-0500 Pulse Oximetry 91 % Lenin Ramirez [facility] 05-03-2018 12:15-0500 Weight 106.5 kg Lenin Ramirez [facility] 04-18-2018 09:15-0500 Body height 163.83 cm Rachel Guera Goodwin LPN [facility], [facility].; [employer], [employer]. 04-18-2018 09:15-0500 Body mass index (BMI) [Ratio] 39.88 kg/m2 Rachel Guera Goodwin [employer] SALES REPRESENTATIVE [place] [employer] [facility].; [employer], [facility]. 04-18-2018 09:15-0500 Body surface area Derived from formula 2.11 m2 Rachel Guera Goodwin [employer]AGE SALES REPRESENTATIVE [place] [employer] [facility], [facility].; [employer], [employer]. 04-18-2018 09:15-0500 Body weight 107.05 kg Rachel Guera Goodwin [facility] [employer] [facility], [facility].; [employer], [employer]. 04-18-2018 09:15-0500 Diastolic blood pressure 73 mm[Hg] Rachel Goodwin [employer] SALES REPRESENTATIVE [place] [employer] [facility].; [employer] [facility], [facility]. 04-18-2018 09:15-0500 Heart rate 70 /min Rachel Guera Goodwin LPN [employer] [facility], [facility] [facility].; [employer], [employer]. 04-18-2018 09:15-0500 Inhaled oxygen concentration 20 % Rachel Guera Osmanbarichard [facility] [employer] [facility] [employer], [employer]. 04-18-2018 09:15-0500 SaO2% (BldA) [Mass fraction] 93 % Rachel Guera Samersjosephine [employer]ORD[employer] SALES REPRESENTATIVE [place] [employer] [facility], [facility].; [employer]. 04-18-2018 09:15-0500 Systolic blood pressure 150 mm[Hg] Rachel Goodwin LPN [employer].; [employer]. 03-16-2018 10:31-0500 Body height 163.83 cm Umu Nye RN [employer]. 03-16-2018 10:31-0500 Body mass index (BMI) [Ratio] 39.21 kg/m2 Umu Nye RN [employer].; [employer]. 03-16-2018 10:31-0500 Body surface area Derived from formula 2.1 m2 Umu Nye RN [employer].; [employer]. 03-16-2018 10:31-0500 Body temperature 98.6 [degF] Umu Nye RN [employer].; [employer]. 03-16-2018 10:31-0500 Body weight 105.24 kg Umu Nye RN [employer].; [employer]. 03-16-2018 10:31-0500 Diastolic blood pressure 71 mm[Hg] Umu Nye RN [employer].; [employer]. 03-16-2018 10:31-0500 Heart rate 76 /min Umu Nye RN [employer].; [employer]. 03-16-2018 10:31-0500 Inhaled oxygen concentration 20 % Umu Nye RN [employer].; [employer]. 03-16-2018 10:31-0500 SaO2% (BldA) [Mass fraction] 94 % Umu Nye RN [employer].; [employer]. 03-16-2018 10:31-0500 Systolic blood pressure 126 mm[Hg] Umu Nye RN [employer].; [employer]. 02-21-2018 08:02-0500 Body height 163.83 cm Sandra King LPN [employer].; [employer]. 02-21-2018 08:02-0500 Body mass index (BMI) [Ratio] 39.04 kg/m2 Sandra Wealonso [place] [employer]. 02-21-2018 08:02-0500 Body surface area Derived from formula 2.09 m2 Sandra Avialonso [place] [employer]. 02-21-2018 08:02-0500 Body temperature 97.9 [degF] Sandra Fernando CORDAGE SALES REPRESENTATIVE [place] [employer] [facility].; [employer]. 02-21-2018 08:02-0500 Body weight 104.78 kg Sandra Wealonso [employer]ORDAGE SALES REPRESENTATIVE [employer], [employer].; [employer]. 02-21-2018 08:02-0500 Diastolic blood pressure 81 mm[Hg] Sandra [facility] [employer]. 02-21-2018 08:02-0500 Heart rate 71 /min Sandra Avialonso [employer]ORDAGE SALES REPRESENTATIVE [employer]. 02-21-2018 08:02-0500 Inhaled oxygen concentration 20 % Sandra Avialonso [facility] [employer], [employer]. 02-21-2018 08:02-0500 SaO2% (BldA) [Mass fraction] 98 % Sandra Avialonso [employer]ORDAGE SALES REPRESENTATIVE [employer]. 02-21-2018 08:02-0500 Systolic blood pressure 160 mm[Hg] Sandra King LPN [employer]. 02-06-2018 08:00-0500 Body height 163.83 cm Rachel Goodwin CORDAGE SALES REPRESENTATIVE [employer]. 02-06-2018 08:00-0500 Body mass index (BMI) [Ratio] 38.19 kg/m2 Rachel Goodwin [employer]ORDAGE SALES REPRESENTATIVE [employer]. 02-06-2018 08:00-0500 Body surface area Derived from formula 2.07 m2 Rachel Goodwin [facility], [facility].; [employer], [facility]. 02-06-2018 08:00-0500 Body temperature 99.5 [degF] Rachel Goodwin [facility], Inc.; [employer], [employer]. 02-06-2018 08:00-0500 Body weight 102.51 kg Rachel Goodwin [facility] [employer] [facility], [facility].; [employer], [facility]. 02-06-2018 08:00-0500 Diastolic blood pressure 82 mm[Hg] Rachel Goodwin [facility] [employer] [facility] [employer], [employer]. 02-06-2018 08:00-0500 Heart rate 85 /min Rachel Goodwin [facility] [employer] [facility] [employer], [employer]. 02-06-2018 08:00-0500 Inhaled oxygen concentration 20 % Rachelanahy Goodwin [facility] [employer] [facility], [facility].; [employer], [employer]. 02-06-2018 08:00-0500 SaO2% (BldA) [Mass fraction] 95 % Rachelanahy Goodwin [facility] [employer] [facility], [facility].; [employer], [employer]. 02-06-2018 08:00-0500 Systolic blood pressure 146 mm[Hg] Rachel Goodwin [facility] [employer] [facility] [employer], [employer]. 12-26-2017 08:42-0400 Body height 163.83 cm Muna Townsend [facility] [employer] [facility], [facility].; [employer], [employer]. 12-26-2017 08:42-0400 Body mass index (BMI) [Ratio] 39.38 kg/m2 Muna Townsend [facility] [employer] [facility], [employer].; [employer], [employer]. 12-26-2017 08:42-0400 Body surface area Derived from formula 2.1 m2 Muna Townsend [facility] [employer] [facility], [facility].; [employer]. 12-26-2017 08:42-0400 Body temperature 97.5 [degF] Muna Townsend CORDAGE SALES REPRESENTATIVE [facility], [facility].; [employer] [facility] 12-26-2017 08:42-0400 Body weight 105.69 kg Muna Townsend ASH[employer] [facility], [facility].; [employer] [facility] 12-26-2017 08:42-0400 Diastolic blood pressure 80 mm[Hg] Muna Townsend ASHER [facility], Inc.; [employer] 12-26-2017 08:42-0400 Heart rate 83 /min AdelineMaren Townsend ASHER [facility], Inc.; [employer] 12-26-2017 08:42-0400 Inhaled oxygen concentration 20 % AdelineMaren Townsend ASHER [facility], Inc.; [employer] [facility], Inc[facility] 12-26-2017 08:42-0400 SaO2% (BldA) [Mass fraction] 96 % AdelineMaren Townsend ASHER [facility], Inc.; [employer] 12-26-2017 08:42-0400 Systolic blood pressure 145 mm[Hg] Muna Townsend ASHER [facility], [facility].; [employer] 11-07-2017 09:17-0400 Body height 163.83 cm Muna Townsend ASHER [facility], Inc.; [employer] 11-07-2017 09:17-0400 Body mass index (BMI) [Ratio] 38.7 kg/m2 Adeline Cary ASHER [facility], [facility].; [employer] 11-07-2017 09:17-0400 Body surface area Derived from formula 2.08 m2 Adeline Preemption ASHER [place] [employer] [facility] [employer] 11-07-2017 09:17-0400 Body weight 103.87 kg Adeline Cary ASHER [facility], Inc.; [employer] 11-07-2017 09:17-0400 Diastolic blood pressure 73 mm[Hg] AdelineMaren Barrettey ASHER [place] [employer] [facility], [facility] [employer] 11-07-2017 09:17-0400 Heart rate 82 /min Muna Townsend ASHER [employer] 11-07-2017 09:17-0400 Systolic blood pressure 144 mm[Hg] Muna Townsend [employer] SALES REPRESENTATIVE [employer] 10-09-2017 08:22-0400 Body height 163.83 cm Johnny Corcoran [facility] [employer] 10-09-2017 08:22-0400 Body mass index (BMI) [Ratio] 39.21 kg/m2 Johnny Corcoran [facility] [employer] 10-09-2017 08:22-0400 Body surface area Derived from formula 2.1 m2 Johnny Corcoran [facility] [employer] 10-09-2017 08:22-0400 Body weight 105.24 kg Johnny Corcoran [facility] [employer] 10-09-2017 08:22-0400 Diastolic blood pressure 91 mm[Hg] Johnny Corcoran [employer] SALES REPRESENTATIVE [employer] 10-09-2017 08:22-0400 Heart rate 70 /min Johnny Corcoran [facility] [employer] 10-09-2017 08:22-0400 Systolic blood pressure 151 mm[Hg] Johnny Corcoran LPN [employer] 09-18-2017 09:50-0400 Body height 163.83 cm Zack Olmos MD Work Phone: [employer] 09-18-2017 09:50-0400 Body mass index (BMI) [Ratio] 38.7 kg/m2 Zack Olmos MD Work Phone: [employer] 09-18-2017 09:50-0400 Body surface area Derived from formula 2.08 m2 Zack Olmos MD Work Phone: [employer] 09-18-2017 09:50-0400 Body weight 103.87 kg Zack Olmos MD Work Phone: [employer] 09-18-2017 09:50-0400 Diastolic blood pressure 70 mm[Hg] Zack Olmos MD Work Phone: [employer] 09-18-2017 09:50-0400 Heart rate 67 /min Zack Olmos MD Work Phone: [employer] 09-18-2017 09:50-0400 Systolic blood pressure 126 mm[Hg] Zack Olmos MD Work Phone: [employer].; [employer] 07-11-2017 09:27-0400 Body height 163.83 cm Laura Boswell LPN [employer] 07-11-2017 09:27-0400 Body mass index (BMI) [Ratio] 39.04 kg/m2 Laura Boswell LPN [employer] 07-11-2017 09:27-0400 Body surface area Derived from formula 2.09 m2 Laura Boswell LPN [employer] 07-11-2017 09:27-0400 Body temperature 97.9 [degF] Laura Boswell LPN [employer] 07-11-2017 09:27-0400 Body weight 104.78 kg Laura Boswell LPN [employer] 07-11-2017 09:27-0400 Diastolic blood pressure 72 mm[Hg] Laura Boswell LPN [employer] 07-11-2017 09:27-0400 Heart rate 74 /min Laura Boswell LPN [employer] 07-11-2017 09:27-0400 Systolic blood pressure 154 mm[Hg] Laura Boswell LPN [employer] 06-16-2017 10:15-0400 Body temperature 97.9 [degF] Laura Ilda Boswell CORDAGE SALES REPRESENTATIVE [employer] 06-16-2017 10:15-0400 Body weight 106.4 kg Laura Ilda Boswell LPN [employer] 06-16-2017 10:15-0400 Diastolic blood pressure 70 mm[Hg] [facility]well [facility] [employer] 06-16-2017 10:15-0400 Heart rate 91 /min Laura Ilda Boswell [facility] [employer] 06-16-2017 10:15-0400 Systolic blood pressure 143 mm[Hg] Laura Boswell [facility] [employer] 05-04-2017 15:40-0500 BMI (Body Mass Index) 38.22 kg/m2 Lenin Ramirez [facility] 05-04-2017 15:40-0500 BP Diastolic 80 mm[Hg] Lenin Ramirez [facility] 05-04-2017 15:40-0500 BP Systolic 127 mm[Hg] Lenin Ramirez [facility] 05-04-2017 15:40-0500 Height 170.2 cm Lenin Ramirez [facility] 05-04-2017 15:40-0500 Pulse (Heart Rate) 80 /min Lenin Ramirez [facility] 05-04-2017 15:40-0500 Weight 110.68 kg Lenin Ramirez [facility] 03-21-2017 10:25-0500 Body height 163.83 cm Zack Olmos MD Work Phone: [employer] 03-21-2017 10:25-0500 Body mass index (BMI) [Ratio] 39.88 kg/m2 Zack Olmos MD Work Phone: [employer] 03-21-2017 10:25-0500 Body surface area Derived from formula 2.11 m2 Zack Olmos MD Work Phone: [employer] 03-21-2017 10:25-0500 Body weight 107.05 kg Zack Olmos MD Work Phone: [employer] 03-21-2017 10:25-0500 Diastolic blood pressure 70 mm[Hg] Zack Olmos MD Work Phone: [employer] 03-21-2017 10:25-0500 Heart rate 91 /min Zack Olmos MD Work Phone: [employer] 03-21-2017 10:25-0500 Systolic blood pressure 132 mm[Hg] Zack Olmos MD Work Phone: [employer] 10-05-2016 09:46-0400 Body height 163.83 cm Zack Olmos MD Work Phone: [employer] 10-05-2016 09:46-0400 Body mass index (BMI) [Ratio] 39.88 kg/m2 Zack Olmos MD Work Phone: [employer] 10-05-2016 09:46-0400 Body surface area Derived from formula 2.11 m2 Zack Olmos MD Work Phone: [employer] 10-05-2016 09:46-0400 Body weight 107.05 kg Zack Olmos MD Work Phone: [employer] 10-05-2016 09:46-0400 Diastolic blood pressure 82 mm[Hg] Zack Olmos MD Work Phone: [employer] 10-05-2016 09:46-0400 Heart rate 68 /min Zack Olmos MD Work Phone: [employer] 10-05-2016 09:46-0400 Systolic blood pressure 138 mm[Hg] Zack Olmos MD Work Phone: [employer] 09-16-2016 11:33-0400 Body height 163.83 cm Rosy [facility]Le[facility]restAur[facility], Inc[employer] 09-16-2016 11:33-0400 Body mass index (BMI) [Ratio] 40.39 kg/m2 Rosy Allison [facility]byLehigh [facility] Hospital[facility] CrestBE[facility] BioTherapeutics Inc.; [employer] 09-16-2016 11:33-0400 Body surface area Derived from formula 2.12 m2 Rosy Allison Corby LPN [employer] 09-16-2016 11:33-0400 Body weight 108.41 kg Rosy Allison Corby LPN [employer] 09-16-2016 11:33-0400 Diastolic blood pressure 84 mm[Hg] Rosy Tavarez [facility] [employer] 09-16-2016 11:33-0400 Heart rate 73 /min Rosy Allison Corby [facility] [employer] 09-16-2016 11:33-0400 Systolic blood pressure 145 mm[Hg] Rosy Tavarez [facility] [employer] 04-06-2016 10:03-0500 Body height 163.83 cm Zack Olmos MD Work Phone: [employer] 04-06-2016 10:03-0500 Body mass index (BMI) [Ratio] 41.4 kg/m2 Zack Olmos MD Work Phone: [employer] 04-06-2016 10:03-0500 Body surface area Derived from formula 2.14 m2 Zack Olmos MD Work Phone: [employer] 04-06-2016 10:03-0500 Body weight 111.13 kg Zack Olmos MD Work Phone: [employer] 04-06-2016 10:03-0500 Diastolic blood pressure 72 mm[Hg] Zack Olmos MD Work Phone: [employer] 04-06-2016 10:03-0500 Heart rate 91 /min Zack Olmos MD Work Phone: [employer] 04-06-2016 10:03-0500 Systolic blood pressure 140 mm[Hg] Zack Olmos MD Work Phone: [employer] 12-21-2015 09:23-0400 Body weight 115.21 kg Zack Olmos MD Work Phone: [employer] 12-21-2015 09:23-0400 Diastolic blood pressure 80 mm[Hg] Zack Olmos MD Work Phone: [employer] 12-21-2015 09:23-0400 Heart rate 76 /min Zack Olmos MD Work Phone: [employer] 12-21-2015 09:23-0400 Systolic blood pressure 142 mm[Hg] Zack Olmos MD Work Phone: [employer] 10-14-2015 10:57-0400 Body height 163.83 cm Rosy Tavarez [facility] [employer] 10-14-2015 10:57-0400 Body mass index (BMI) [Ratio] 41.91 kg/m2 Rosy Tavarez LPN [employer] 10-14-2015 10:57-0400 Body surface area Derived from formula 2.16 m2 Rosy Tavarez LPN [employer] 10-14-2015 10:57-0400 Body weight 112.49 kg Rosy Allison Corby [place] [employer] [facility], [facility].; [employer] 10-14-2015 10:57-0400 Diastolic blood pressure 74 mm[Hg] Rosy Balldory [place] [employer] [facility], [facility].; [employer] 10-14-2015 10:57-0400 Heart rate 75 /min Rosy Allison Corby CORDAGE SALES REPRESENTATIVE [employer] [facility], [facility] 10-14-2015 10:57-0400 Systolic blood pressure 131 mm[Hg] Rosy Allison Corby LPN [employer] 10-06-2015 10:11-0400 Body height 163.83 cm Muna Engel Cary [place] [employer] [facility], [facility].; [employer] 10-06-2015 10:11-0400 Body mass index (BMI) [Ratio] 41.57 kg/m2 Muna Engel Preemption ASHER [employer] [facility], [facility] [employer] 10-06-2015 10:11-0400 Body surface area Derived from formula 2.15 m2 Muna Engel [place] [employer] [facility], Inc.; [employer] 10-06-2015 10:11-0400 Body weight 111.59 kg Muna Townsend ASHER [employer] [facility], [facility].; [employer] 10-06-2015 10:11-0400 Diastolic blood pressure 75 mm[Hg] Muna Engel [place] ASHER [employer] [facility], [facility].; [employer] 10-06-2015 10:11-0400 Heart rate 71 /min Muna Engel [place] ASHER [employer] 10-06-2015 10:11-0400 Systolic blood pressure 141 mm[Hg] Muna Engel [place] ASHER [employer] 04-07-2015 10:00-0500 Body height 163.83 cm Adeline [place] [employer] 04-07-2015 10:00-0500 Body mass index (BMI) [Ratio] 41.24 kg/m2 Adeline Cary [facility] [employer] 04-07-2015 10:00-0500 Body surface area Derived from formula 2.14 m2 [facility] [employer] 04-07-2015 10:00-0500 Body weight 110.68 kg Muna Townsend [facility] [employer] 04-07-2015 10:00-0500 Diastolic blood pressure 77 mm[Hg] [facility], [facility] 04-07-2015 10:00-0500 Heart rate 85 /min [facility] CampusA[facility], Inc[facility] [employer] 04-07-2015 10:00-0500 Systolic blood pressure 138 mm[Hg] Muna Townsend [facility] [employer] 01-06-2015 09:37-0400 Body height 163.83 cm Zack Olmos MD Work Phone: [employer] 01-06-2015 09:37-0400 Body mass index (BMI) [Ratio] 40.9 kg/m2 Zack Olmos MD Work Phone: [employer] 01-06-2015 09:37-0400 Body surface area Derived from formula 2.13 m2 Zack Olmos MD Work Phone: [employer] 01-06-2015 09:37-0400 Body temperature 97.7 [degF] Zack Olmos MD Work Phone: [employer] 01-06-2015 09:37-0400 Body weight 109.77 kg Zack Olmos MD Work Phone: [employer]. 01-06-2015 09:37-0400 Diastolic blood pressure 70 mm[Hg] Zack Olmos MD Work Phone: [employer]. 01-06-2015 09:37-0400 Heart rate 69 /min Zack Olmos MD Work Phone: [employer]. 01-06-2015 09:37-0400 Inhaled oxygen concentration 20 % Zack Olmos MD Work Phone: [employer] 01-06-2015 09:37-0400 SaO2% (BldA) [Mass fraction] 97 % Zack Olmos MD Work Phone: [employer]. 01-06-2015 09:37-0400 Systolic blood pressure 132 mm[Hg] Zack Olmos MD Work Phone: [employer] 12-23-2014 08:19-0400 Body temperature 101.6 [degF] Umu Nye RN [employer] 12-23-2014 08:19-0400 Body weight 115.67 kg Umu Nye RN [employer] 12-23-2014 08:19-0400 Diastolic blood pressure 86 mm[Hg] Umu Nye RN [employer] 12-23-2014 08:19-0400 Heart rate 115 /min Umu Nye RN [employer] 12-23-2014 08:19-0400 Inhaled oxygen concentration 20 % Umu Nye RN [employer] 12-23-2014 08:19-0400 SaO2% (BldA) [Mass fraction] 89 % Umu Nye RN [employer] [facility] 12-23-2014 08:19-0400 Systolic blood pressure 184 mm[Hg] Umu Nye RN [facility].; [employer] 09-26-2014 [id number] Body height 163.83 cm AdelineMaren Townsend [facility], Inc.; [employer] 09-26-2014 10:28-0400 Body mass index (BMI) [Ratio] 41.91 kg/m2 [facility] Pre[place] [facility], Inc.; [employer] 09-26-2014 10:28-0400 Body surface area Derived from formula 2.[address] [facility] Preemption [facility] [employer] [facility] [employer] 09-26-2014 [id number] Body weight 112.[address] [facility] Preemption [employer]ORD[employer] SALES REPRESENTATIVE [employer] [facility] [employer] 09-26-2014 10:28-0400 Diastolic blood pressure 79 mm[Hg] AdelineMaren Townsend [employer] SALES REPRESENTATIVE [employer] [facility], Inc[facility] [employer] 09-26-2014 10:28-0400 Heart rate 65 /min [facility] Cary [facility] [employer] [facility] [employer] 09-26-2014 10:28-0400 Systolic blood pressure 141 mm[Hg] Adeline Cary [employer]ORDAGE SALES REPRESENTATIVE [employer] [facility], Inc.; [employer] 08-01-2014 [id number]:[id number] Body height 163.[address] [facility] Cary CORDAGE SALES REPRESENTATIVE [employer] [facility], Inc[facility] [employer] 08-01-2014 09:[id number] Body mass index (BMI) [Ratio] 41.07 kg/m2 [facility] Cary [facility] Inc[facility] [employer] 08-01-2014 09:02-0400 Body surface area Derived from formula 2.[address] [facility] Preemption [employer]ORDAGE SALES REPRESENTATIVE [employer] [facility], Inc[facility] [employer] 08-01-2014 09:[id number] Body weight 110.22 kg Muna Townsend ASHER [employer] [facility], Inc.; [employer] 08-01-2014 09:02-0400 Diastolic blood pressure 78 mm[Hg] Muna Townsend [facility] [employer] 08-01-2014 09:02-0400 Heart rate 78 /min Muna Townsend [facility] [employer] 08-01-2014 09:02-0400 Systolic blood pressure 135 mm[Hg] Muna Townsend CORDAGE SALES REPRESENTATIVEPresbyterian Santa Fe Medical CenterBP[facility], Inc.; [employer] 06-20-2014 09:50-0400 Body height 163.83 cm Marisela Chavis LPN [employer] [facility], Inc.; [employer] 06-20-2014 09:50-0400 Body mass index (BMI) [Ratio] 41.24 kg/m2 Marisela Chavis LPN [employer] [facility], Inc.; [employer] 06-20-2014 09:50-0400 Body surface area Derived from formula 2.14 m2 Marisela Chavis LPN [employer] 06-20-2014 09:50-0400 Body temperature 97.9 [degF] Marisela Chavis LPN [employer] 06-20-2014 09:50-0400 Body weight 110.68 kg Marisela Chavis LPN [employer] 06-20-2014 09:50-0400 Diastolic blood pressure 76 mm[Hg] Marisela Chavis LPN [employer] 06-20-2014 09:50-0400 Heart rate 73 /min Marisela Chavis LPN [employer] 06-20-2014 09:50-0400 Systolic blood pressure 143 mm[Hg] Marisela Chavis LPN [employer] 03-24-2014 08:07-0500 Body height 163.83 cm Muna Townsend [employer]ORD[employer] SALES REPRESENTATIVE [employer] [facility], [employer] [employer] 03-24-2014 08:07-0500 Body mass index (BMI) [Ratio] 39.04 kg/m2 [facility]una [facility]send [facility] [employer] 03-24-2014 08:07-0500 Body surface area Derived from formula 2.09 m2 Muna Townsend [facility] [employer] 03-24-2014 08:07-0500 Body weight 104.78 kg [facility]una Townsend [facility] [employer] 03-24-2014 08:07-0500 Diastolic blood pressure 78 mm[Hg] Muna Townsend [facility] [employer] 03-24-2014 08:07-0500 Heart rate 81 /min Adeline Cary [facility] [employer] 03-24-2014 08:07-0500 Systolic blood pressure 147 mm[Hg] Muna Townsend [facility] [employer] 01-22-2014 11:07-0500 Body height 163.83 cm Muna Townsend [facility] [employer] 01-22-2014 11:07-0500 Body mass index (BMI) [Ratio] 37.18 kg/m2 Muna Townsend [facility] [employer] 01-22-2014 11:07-0500 Body surface area Derived from formula 2.05 m2 Muna Townsend CORDAGE SALES REPRESENTATIVE [employer] 01-22-2014 11:07-0500 Body temperature 97.4 [degF] Muna Townsend [facility] [employer] 01-22-2014 11:07-0500 Body weight 99.79 kg Muna Townsend CORDAGE SALES REPRESENTATIVE [employer] 01-22-2014 11:07-0500 Diastolic blood pressure 69 mm[Hg] Muna Townsend [facility] [employer] [facility], [employer] 01-22-2014 11:07-0500 Heart rate 106 /min Muna Townsend [facility] [employer] [facility], [employer] 01-22-2014 11:07-0500 Systolic blood pressure 112 mm[Hg] Muna Townsend [facility] [employer] 01-15-2014 07:57-0500 Body height 163.83 cm Muna Townsend [facility] [employer] 01-15-2014 07:57-0500 Body mass index (BMI) [Ratio] 37.18 kg/m2 Muna Townsend [facility] [employer] [facility], [employer] 01-15-2014 07:57-0500 Body surface area Derived from formula 2.05 m2 Adeline Cary [facility] [employer] [facility], [employer] 01-15-2014 07:57-0500 Body temperature 99.3 [degF] Muna Townsend [facility] [employer] 01-15-2014 07:57-0500 Body weight 99.79 kg Muna Townsend [facility] [employer] 01-15-2014 07:57-0500 Diastolic blood pressure 69 mm[Hg] Muna Townsend [facility] [employer] [facility], [employer] 01-15-2014 07:57-0500 Heart rate 106 /min AdelineMaren Townsend [facility] [employer] 01-15-2014 07:57-0500 Systolic blood pressure 132 mm[Hg] Muna Townsend [facility] [employer] 01-13-2014 11:25-0500 Body height 163.83 cm Pilar Garcia [facility] [employer] 01-13-2014 11:25-0500 Body mass index (BMI) [Ratio] 37.18 kg/m2 Pilar Garcia CORDAGE SALES REPRESENTATIVE [facility] [facility], [facility] 01-13-2014 11:25-0500 Body surface area Derived from formula 2.05 m2 Pilar Garcia CORDAGE SALES REPRESENTATIVE [employer] [facility], Inc[facility] [employer] 01-13-2014 11:25-0500 Body weight 99.79 kg Pilar Garcia [facility] [employer] 01-13-2014 11:25-0500 Diastolic blood pressure 79 mm[Hg] Pilarclemente Garcia [facility] [employer] 01-13-2014 11:25-0500 Heart rate 109 /min Lowellclemente Garcia LPN [employer] 01-13-2014 11:25-0500 Systolic blood pressure 131 mm[Hg] Pilar Garcia LPN [employer] 07-30-2013 10:06-0400 Body height 163.83 cm Muna Townsend ASHER [employer] 07-30-2013 10:06-0400 Body mass index (BMI) [Ratio] 38.53 kg/m2 Muna Townsend ASHER [facility] [facility], Inc[facility] [employer] 07-30-2013 10:06-0400 Body surface area Derived from formula 2.08 m2 Muna Townsend ASHER [employer] 07-30-2013 10:06-0400 Body weight 103.42 kg Muna Townsend LPN [employer] 07-30-2013 10:06-0400 Diastolic blood pressure 83 mm[Hg] Muna Townsend [employer]ORDAGE SALES REPRESENTATIVE [employer] 07-30-2013 10:06-0400 Heart rate 76 /min Muna Townsend CORDAGE SALES REPRESENTATIVE [employer] 07-30-2013 10:06-0400 Systolic blood pressure 132 mm[Hg] Muna Townsend ASHER [facility] [facility], [facility] [employer] 06-21-2013 10:13-0400 Body height 163.83 cm Marisela Chavis CORDAGE SALES REPRESENTATIVE [facility], Inc.; [employer] 06-21-2013 10:13-0400 Body mass index (BMI) [Ratio] 37.69 kg/m2 Marisela Chavis [employer]ORDAGE SALES REPRESENTATIVE [employer] [facility], [facility] [employer] 06-21-2013 10:13-0400 Body surface area Derived from formula 2.06 m2 Marisela Chavis [employer]ORDAGE SALES REPRESENTATIVE [facility] [facility], [facility] [employer] 06-21-2013 10:130400 Body temperature 97.1 [degF] Marisela Chavis [employer]ORDAGE SALES REPRESENTATIVE [employer] [facility], [facility] [employer] 06-21-2013 10:130400 Body weight 101.15 kg Marisela Chavis CORDAGE SALES REPRESENTATIVE [employer] [facility], [facility] [employer] 06-21-2013 10:13-0400 Diastolic blood pressure 69 mm[Hg] Marisela Chavis [facility] [employer] 06-21-2013 10:13-0400 Heart rate 67 /min Marisela Chavis CORDAGE SALES REPRESENTATIVE [facility] [facility], [facility] [employer] 06-21-2013 10:13-0400 Systolic blood pressure 111 mm[Hg] Marisela Chavis CORDAGE SALES REPRESENTATIVE [employer] [facility], Inc[facility] [employer] 03-04-2013 14:05-0500 Body height 163.83 cm Sandra King [facility] [employer] 03-04-2013 14:05-0500 Body mass index (BMI) [Ratio] 35.72 kg/m2 Sandra King LPN [facility] [facility], Inc.; [employer] 03-04-2013 14:05-0500 Body surface area Derived from formula 2.01 m2 Sandra King CORDAGE SALES REPRESENTATIVE [facility], Inc.; [employer], [employer]. 03-04-2013 14:05-0500 Body weight 95.88 kg Sandra Wealonso STERLING [place] [employer] [facility], [facility].; [employer] 03-04-2013 14:05-0500 Diastolic blood pressure 76 mm[Hg] Sandra King LPN [place] [employer] [facility], [facility] [employer] 03-04-2013 14:05-0500 Heart rate 71 /min Sandra King LPN [place] [employer] [facility], [facility] [employer] 03-04-2013 14:05-0500 Systolic blood pressure 175 mm[Hg] Sandra King LPPres[facility] CenterBP[facility], Inc.; [employer] 02-18-2013 11:32-0500 Body height 163.83 cm Sandra King LPN [place] [employer] [facility], Inc[facility] [employer], [employer]. 02-18-2013 11:32-0500 Body mass index (BMI) [Ratio] 35.07 kg/m2 Sandra King LPN [place] [employer] [facility], Inc[facility] [employer], [employer]. 02-18-2013 11:32-0500 Body surface area Derived from formula 2 m2 Sandra King LPN [place] [employer] [facility], [facility] [employer] 02-18-2013 11:32-0500 Body temperature 98 [degF] Sandra King LPN [place] [employer] [facility], Inc.; [employer] 02-18-2013 11:32-0500 Body weight 94.12 kg Sandra King LPN [facility] [facility], [facility].; [employer], [employer]. 02-18-2013 11:32-0500 Diastolic blood pressure 82 mm[Hg] Sandra King LPN [employer] 02-18-2013 11:32-0500 Heart rate 82 /min Sandra King LPN [facility] [employer], [employer], [employer]. 02-18-2013 11:32-0500 Systolic blood pressure 135 mm[Hg] Sandra King LPN [employer]. 01-31-2013 08:07-0500 Body height 163.83 cm Zack Olmos MD Work Phone: [employer] 01-31-2013 08:07-0500 Body mass index (BMI) [Ratio] 35.83 kg/m2 Zack Olmos MD Work Phone: [employer] 01-31-2013 08:07-0500 Body surface area Derived from formula 2.02 m2 Zack Olmos MD Work Phone: [employer]. 01-31-2013 08:07-0500 Body temperature 101 [degF] Zakc Olmos MD Work Phone: [employer]. 01-31-2013 08:07-0500 Body weight 96.16 kg Zack Olmos MD Work Phone: [employer]. 01-31-2013 08:07-0500 Diastolic blood pressure 72 mm[Hg] Zack Olmos MD Work Phone: [employer] 01-31-2013 08:07-0500 Heart rate 101 /min Zack Olmos MD Work Phone: [employer] 01-31-2013 08:07-0500 Systolic blood pressure 133 mm[Hg] Zack Olmos MD Work Phone: [employer]. 01-29-2013 09:57-0500 Body weight 96.62 kg Zack Olmos MD Work Phone: [employer] 01-29-2013 09:57-0500 Diastolic blood pressure 78 mm[Hg] Zack Olmos MD Work Phone: [employer]. 01-29-2013 09:57-0500 Heart rate 76 /min Zack Olmos MD Work Phone: [employer]. 01-29-2013 09:57-0500 Systolic blood pressure 128 mm[Hg] Zack Olmos MD Work Phone: [employer]. 07-24-2012 09:20-0400 Body height 163.83 cm Zack Olmos MD Work Phone: [employer].; [employer]. 07-24-2012 09:20-0400 Body mass index (BMI) [Ratio] 36 kg/m2 Zack Olmos MD Work Phone: [employer].; [employer]. 07-24-2012 09:20-0400 Body surface area Derived from formula 2.02 m2 Zack Olmos MD Work Phone: [employer].; [employer]. 07-24-2012 09:20-0400 Body weight 96.62 kg Zack Olmos MD Work Phone: [employer]. 07-24-2012 09:20-0400 Diastolic blood pressure 72 mm[Hg] Zack Olmos MD Work Phone: [employer]. 07-24-2012 09:20-0400 Heart rate 68 /min Zack Olmos MD Work Phone: [employer]. 07-24-2012 09:20-0400 Systolic blood pressure 138 mm[Hg] Zack Olmos MD Work Phone: [employer]. 01-24-2012 09:38-0500 Body temperature 97.9 [degF] Zack Olmos MD Work Phone: [employer]. 01-24-2012 09:38-0500 Body weight 100.25 kg Zack Olmos MD Work Phone: [facility] [facility], [employer] 01-24-2012 09:38-0500 Diastolic blood pressure 76 mm[Hg] Zack Olmos MD Work Phone: [employer] 01-24-2012 09:38-0500 Heart rate 72 /min Zack Olmos MD Work Phone: [employer] 01-24-2012 09:38-0500 Systolic blood pressure 136 mm[Hg] Zack Olmos MD Work Phone: [employer], [employer] 10-18-2011 10:18-0400 Body height 163.[address] [facility] [employer] [facility], Inc[facility] [employer] 10-18-2011 10:18-0400 Body mass index (BMI) [Ratio] 38.87 kg/m2 [facility] Inc[facility] [employer] 10-18-2011 10:18-0400 Body surface area Derived from formula 2.09 m2 [facility], Inc[facility] [employer] 10-18-2011 10:18-0400 Body weight 104.33 kg [facility], Inc[facility] [employer] 10-18-2011 10:18-0400 Diastolic blood pressure 89 mm[Hg] [facility], Inc[facility] [employer] 10-18-2011 10:18-0400 Heart rate 72 /min [facility] [employer] 10-18-2011 10:18-0400 Systolic blood pressure 153 mm[Hg] [facility] [employer] 08-02-2011 08:30-0400 Body height 163.83 cm Zack Olmos MD Work Phone: [employer] 08-02-2011 08:30-0400 Body mass index (BMI) [Ratio] 41.07 kg/m2 Zack Olmos MD Work Phone: [employer]. 08-02-2011 08:30-0400 Body surface area Derived from formula 2.14 m2 Zack Olmos MD Work Phone: [employer]. 08-02-2011 08:30-0400 Body weight 110.22 kg Zack Olmos MD Work Phone: [employer]. 08-02-2011 08:30-0400 Diastolic blood pressure 78 mm[Hg] Zack Olmos MD Work Phone: [employer]. 08-02-2011 08:30-0400 Heart rate 58 /min Zack Olmos MD Work Phone: [employer]. 08-02-2011 08:30-0400 Systolic blood pressure 126 mm[Hg] Zack Olmos MD Work Phone: [employer]. 03-29-2011 10:18-0500 Body height 163.83 cm Lesley Armin Abrams CORDAGE SALES REPRESENTATIVE [employer]. 03-29-2011 10:18-0500 Body mass index (BMI) [Ratio] 40.59 kg/m2 Lesley C Jose Alberto CORDAGE SALES REPRESENTATIVE [employer]. 03-29-2011 10:18-0500 Body surface area Derived from formula 2.13 m2 Lesley C Jose Alberto CORDAGE SALES REPRESENTATIVE [employer]. 03-29-2011 10:18-0500 Body weight 108.95 kg Lesley Armin Abrams CORDAGE SALES REPRESENTATIVE [employer].; [employer]. 03-29-2011 10:18-0500 Diastolic blood pressure 77 mm[Hg] Lesley Abrams LPN [employer].; [employer]. 03-29-2011 10:18-0500 Heart rate 93 /min Lesley Abrams LPN [employer] 03-29-2011 10:18-0500 Systolic blood pressure 136 mm[Hg] Lesley Abrams LPN [employer]. 02-01-2011 10:29-0500 Body height 165.1 cm Zack Olmos MD Work Phone: [employer]. 02-01-2011 10:29-0500 Body mass index (BMI) [Ratio] 42.6 kg/m2 Zack Olmos MD Work Phone: [employer]. 02-01-2011 10:29-0500 Body surface area Derived from formula 2.2 m2 Zack Olmos MD Work Phone: [employer]. 02-01-2011 10:29-0500 Body weight 116.12 kg Zack Olmos MD Work Phone: [employer]. 02-01-2011 10:29-0500 Diastolic blood pressure 77 mm[Hg] Zack Olmos MD Work Phone: [employer]. 02-01-2011 10:29-0500 Heart rate 65 /min Zack Olmos MD Work Phone: [employer]. 02-01-2011 10:29-0500 Systolic blood pressure 122 mm[Hg] Zack Olmos MD Work Phone: [employer]. 08-27-2010 08:32-0400 Body weight 114.31 kg Zack Olmos MD Work Phone: [employer]. 08-27-2010 08:32-0400 Diastolic blood pressure 71 mm[Hg] Zack Olmos MD Work Phone: [employer]. 08-27-2010 08:32-0400 Heart rate 61 /min Zack Olmos MD Work Phone: [employer]. 08-27-2010 08:32-0400 Systolic blood pressure 128 mm[Hg] Zack Olmos MD Work Phone: [employer]. 05-13-2010 17:01-0500 Body temperature 96.7 [degF] Zack Olmos MD Work Phone: [employer]. 05-13-2010 17:01-0500 Body weight 117.03 kg Zack Olmos MD Work Phone: [employer]. 05-13-2010 17:01-0500 Diastolic blood pressure 83 mm[Hg] Zack Olmos MD Work Phone: [employer]. 05-13-2010 17:01-0500 Heart rate 65 /min Zack Olmos MD Work Phone: [employer]. 05-13-2010 17:01-0500 Inhaled oxygen concentration 20 % Zack Olmos MD Work Phone: [employer]. 05-13-2010 17:01-0500 SaO2% (BldA) [Mass fraction] 96 % Zack Olmos MD Work Phone: [employer]. 05-13-2010 17:01-0500 Systolic blood pressure 183 mm[Hg] Zack Olmos MD Work Phone: [employer]. 02-26-2010 08:51-0500 Body weight 119.75 kg Zack Olmos MD Work Phone: [facility], [employer] 02-26-2010 08:51-0500 Diastolic blood pressure 66 mm[Hg] Zack Olmos MD Work Phone: [facility], [employer].; [employer] 02-26-2010 08:51-0500 Heart rate 59 /min Zack Olmos MD Work Phone: [place] [employer] [facility] HospitalFaisonsAffaire[facility].; [employer] 02-26-2010 08:51-0500 Systolic blood pressure 130 mm[Hg] Zack Olmos MD Work Phone: [place] [employer] [facility], [employer].; [employer] 01-06-2010 15:19-0400 Body height 165.1 cm [facility].; [employer], [employer]. 01-06-2010 15:19-0400 Body mass index (BMI) [Ratio] 43.43 kg/m2 [facility], [facility].; [employer], [employer]. 01-06-2010 15:19-0400 Body surface area Derived from formula 2.22 m2 [facility], [facility].; [employer] 01-06-2010 15:19-0400 Body temperature 96.9 [degF] [facility] [employer], [employer]. 01-06-2010 15:19-0400 Body weight 118.[address] [facility], [facility].; [employer], [employer]. 01-06-2010 15:19-0400 Diastolic blood pressure 78 mm[Hg] [facility], [employer].; [employer], [employer]. 01-06-2010 15:19-0400 Heart rate 72 /min [facility], [facility].; [employer], [employer]. 01-06-2010 15:19-0400 Inhaled oxygen concentration 20 % [facility] [employer]. 01-06-2010 15:19-0400 SaO2% (BldA) [Mass fraction] 96 % Muna Townsend [facility] [employer].; [employer]. 01-06-2010 15:19-0400 Systolic blood pressure 160 mm[Hg] Muna Townsend [facility].; [employer]. Encounters Encounter Date Encounter Type Care Provider Facility Start: 03-30-2023 Orders Only Sherry George DO Work Phone: [facility] Start: 03-30-2023 End: 03-30-2023 Office outpatient visit 25 minutes Zack Olmos MD Work Phone: [facility] [facility] Start: 03-30-2023 Zack Olmos MD Work Phone: [facility] [employer] [facility] Start: 03-27-2023 End: 03-27-2023 Zack Olmos MD Work Phone: [employer] [facility] Start: 03-24-2023 ambulatory LENIN RAMIREZ [facility] Start: 03-21-2023 End: 03-22-[address] [facility] Start: 01-23-2023 ambulatory LENIN RAMIREZ [facility] Start: 12-22-2022 End: 12-22-2022 Home visit Андрей Claros RN [facility] Procedures Date Procedure Procedure Detail Performing Clinician Start: 06-21-2022 End: 06-21-2022 Adv care pln/ no alt dcsn mkr docd or refusal Zack Olmos MD Work Phone: Start: 06-21-2022 End: 06-21-2022 Depression screening Zack Olmos MD Work Phone: Start: 06-21-2022 End: 06-21-2022 Falls risk assessment documented Zack Olmos MD Work Phone: Start: 06-21-2022 End: 06-21-2022 PPPS, subseq visit Zack Olmos MD Work Phone: Start: 06-21-2022 End: 06-21-2022 Pt falls assess docd 2/> falls/fall w/injury/yr Zack Olmos MD Work Phone: Start: 06-21-2022 End: 06-21-2022 Scr dep neg, no plan reqd Zack Olmos MD Work Phone: Start: 05-12-2022 End: 05-12-2022 Prostate specific antigen measurement Muna Townsend LPN Start: 04-26-2022 End: 04-26-2022 Muna Townsend LP N Start: 04-26-2022 End: 04-26-2022 AIRWAY ETT Froy Ochoa Mason 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 Work Phone: Start: 04-18-2022 End: 04-19-2022 Ecg routine ecg w/least 12 lds i&r only Zack Olmos MD Work Phone: Start: 03-20-2022 End: 03-20-2022 Screening colonoscopy Muna Townsend LPN Start: 03-20-2022 Colonoscopy Sherry Doris DO Work Phone: Start: 10-26-2020 End: 10-26-2020 Ecg routine ecg w/least 12 lds w/i&r [place] Hawk CNP Work Phone: Start: 10-21-2020 History of coronary artery bypass grafting S/P CABG (coronary artery bypass graft) Mil Dee MD Work Phone: Start: 10-06-2020 End: 10-06-2020 Depression screening Zack Olmos MD Work Phone: Start: 10-06-2020 End: 10-06-2020 Falls risk assessment documented Zack Olmos MD Work Phone: Start: 10-06-2020 End: 10-06-2020 Pos clin depres scrn f/u doc Zack salvador MD Work Phone: Start: 10-06-2020 End: 10-06-2020 PPPS, subseq visit Zack Olmos MD Work Phone: Start: 10-06-2020 End: 10-06-2020 Pt falls assess docd w/o fall/injury past year Zack Olmos MD Work Phone: Start: 10-02-2020 End: 10-02-2020 Muna Townsend LP N Start: 09-29-2020 End: 09-29-2020 Lipid panel results documented & reviewed Muna Townsend LPN Start: 09-15-2020 Radiologic exam chest 2 views Pearl Noble PA-C Work Phone: Start: 08-27-2020 Microalbumin [Mass/volume] in Urine by Test strip Pearl Noble PA-C Work Phone: Start: 11-27-2019 End: 11-27-2019 Flu immunize order/admin Zack Ryan Work Phone: Start: 09-20-2019 End: 09-20-2019 Depression screening Zack Olmos MD Work Phone: Start: 09-20-2019 End: 09-20-2019 Falls risk assessment documented Zack Olmos MD Work Phone: Start: 09-20-2019 End: 09-20-2019 PPPS, subseq visit Zack Olmos MD Work Phone: Start: 09-20-2019 End: 09-20-2019 Pt falls assess docd w/o fall/injury past year Zack Olmos MD Work Phone: Start: 09-20-2019 End: 09-20-2019 Scr dep neg, no plan reqd Zack Olmos MD Work Phone: Start: 08-08-2019 12 lead ECG Lenin Ramirez Work Phone: Start: 03-13-2019 End: 03-13-2019 Replacement of total knee joint Muna Townsend LPN Start: 10-26-2018 Echocardiography [place] Work Phone: Start: 07-20-2018 Radionuclide myocardial perfusion study Lenin Ramirez Work Phone: Start: 05-07-2018 Complete blood count with white cell differential, manual Lenin Ramirez Work Phone: Start: 05-04-2018 Echocardiography Lenin Ramirez Work Phone: Start: 05-03-2018 12 lead ECG Lenin Ramirez Work Phone: Start: 04-20-2018 End: 04-24-2018 Ct thorax w/o contrast material Zack Olmos MD Work Phone: Start: 04-18-2018 End: 04-20-2018 Radiologic exam chest 2 views Zack Olmos MD Work Phone: Start: 03-16-2018 End: 03-16-2018 Falls risk assessment documented Zack Olmos MD Work Phone: Start: 03-16-2018 End: 03-16-2018 Pos clin depres scrn f/u doc Zack salvador MD Work Phone: Start: 03-16-2018 End: 03-16-2018 PPPS, subseq visit Zack Olmos MD Work Phone: Start: 03-16-2018 End: 03-16-2018 Pt falls assess docd w/o fall/injury past year Zack Olmos MD Work Phone: Start: 03-16-2018 End: 03-16-2018 Depression screen annual Zack Ryan Work Phone: Start: 02-21-2018 End: 03-14-2018 Spmtry w/vc expiratory chris w/wo mxml vol vntj Yarely Ross PA-C Work Phone: Start: 07-11-2017 End: 07-11-2017 Body mass index documented Zack Olmos MD Work Phone: Start: 03-21-2017 End: 03-21-2017 Body mass index documented Zack Olmos MD Work Phone: Start: 03-21-2017 End: 03-21-2017 Depression screen annual Zack Ryan Work Phone: Start: 03-21-2017 End: 03-21-2017 Falls risk assessment documented Zack Olmos MD Work Phone: Start: 02-15-2017 Microalbumin [Mass/volume] in Urine by Test strip Leonila Titi Start: 12-21-2015 End: 12-28-2015 Mri spinal canal lumbar w/o contrast material Zack Olmos MD Work Phone: Start: 02-09-2015 End: 02-17-2015 Ct thorax w/contrast material Zack Olmos MD Work Phone: Start: 03-24-2014 End: 03-25-2014 Ecg routine ecg w/least 12 lds i&r only Zack Olmos MD Work Phone: Start: 01-12-2014 End: 01-12-2014 AdelineMaren Townsend LP N Start: 03-04-2013 End: 03-05-2013 Radex hand minimum 3 views Zack Olmos MD Work Phone: Start: 03-13-2009 End: 03-13-2009 Muna Engel Cary LP N Start: 03-13-2005 End: 03-13-2005 AdelineMaren Townsend LP N History of coronary artery bypass grafting S/P CABG (coronary artery bypass graft) Pearl Noble PA-C Work Phone: History of coronary artery bypass grafting S/P CABG (coronary artery bypass graft) Park Hawk CNP Work Phone: History of coronary artery bypass grafting S/P CABG (coronary artery bypass graft) Park Hawk HIM CODER Work Phone: History of coronary artery bypass grafting S/P CABG (coronary artery bypass graft) Lenin Ramirez MD Work Phone: History of coronary artery bypass grafting S/P CABG (coronary artery bypass graft) Muna Ozuna RN History of coronary artery bypass grafting S/P CABG (coronary artery bypass graft) Kaushik Chavis MA History of coronary artery bypass grafting S/P CABG (coronary artery bypass graft) Sherry George DO Work Phone: Plan of Treatment Date Care Activity Detail Author Start: 03-20-2032 Screening for malignant neoplasm of colon [facility] Start: 12-07-2023 CLASS III : OFFICE VISIT CLASS III : OFFICE VISIT [facility] Start: 08-31-2023 CLASS III : OFFICE VISIT CLASS III : OFFICE VISIT [facility] Start: 06-08-2023 End: 06-08-2023 Patient encounter procedure 06/08/2023 9:30 AM EDT Office Visit [facility] [address] [place] [address] Lenin Ramirez MD [address] [facility] [address] [place] [address] [facility] Start: 06-01-2023 CLASS III : OFFICE VISIT CLASS III : OFFICE VISIT [facility] Start: 05-30-2023 Alanine aminotransferase measurement CLASS III : ALT [facility] Start: 05-30-2023 Thyroid stimulating hormone measurement Class III : TSH [facility] Start: 05-02-2023 End: 05-02-2023 Patient encounter procedure 05/02/2023 2:15 PM EST Office Visit [facility] [address] [facility], [address] [phone] Sherry George DO [address] [place] [id number] [facility] Start: 04-25-2023 End: 04-25-2023 Patient encounter procedure 04/25/2023 1:00 PM EST Office Visit [facility] [address] [facility] [place], [facility] [address] [place] [address] Sherry George DO [address] [address] [facility] Start: 04-05-2023 CLASS III : OFFICE VISIT CLASS III : OFFICE VISIT [facility] Start: 03-08-2023 End: 12-06-2023 Carcinoembryonic antigen measurement CEA Lab Routine Elevated CEA Malignant neoplasm of ascending colon (HCC) Expected: 03/08/2023 (Approximate), Expires: 12/06/2023 [facility] Immunizations Immunization Date Immunization Notes Care Provider Jef rodarte 05-06-2020 Zack Olmos MD Work Phone: [email or web address] [employer]. 04-08-2020 Zack Olmos MD Work Phone: [email or web address] 11-27-2019 influenza virus vacc ine, unspecified formulation Zack Olmos MD Work Phone: [email or web address] [place] [employer]. 11-27-2019 influenza, injectabl e, quadrivalent, contains preservative Zack Olmos MD Work Phone: [email or web address] 03-23-2019 zoster vaccine recombinant Leonila Walls [facility] 09-25-2018 Shingrix (PF) Zack Olmos MD Work Phone: [email or web address] [employer] 01-30-2018 pneumococcal polysaccharide vaccine, 23 valent Zack Olmos MD Work Phone: [employer] 01-11-2017 influenza, injectabl e, quadrivalent, contains preservative Zack Olmos MD Work Phone: [facility] [employer]. 01-12-2014 pneumococcal conjuga te vaccine, 13 valent Zack Olmos MD Work Phone: [employer]. 12-11-2012 influenza, seasonal, injectable Zack Olmos MD Work Phone: [employer] 01-11-2011 influenza, seasonal, injectable Zack Olmos MD Work Phone: [employer]. 01-11-2011 Zack Olmos MD Work Phone: [employer]. 01-20-2010 influenza, seasonal, injectable Zack Olmos MD Work Phone: [email or web address] 01-20-2010 Zack Olmos MD Work Phone: [email or web address] Payers Date Payer Category Payer Unknown [employer]MO [employer] [place] TRADITIONAL xxxxxxxxxxxx 2019-Present xxxxxxxxxxxx [id number] 2019 Unknown [id number] .[id number] 2019 Unknown [id number]. [id number] .[id number] 2019 Unknown [id number] 2011 Medicare xxxxxxxxxx [id number] 2011 Medicare MEDICARE MEDICAR E PART A & B xxxxxxxxxxx 2011-Present [place] xxxxxxxxxxx [id number] .[id number] 2011 Medicare [id number] .[id number] 2011 Medicare MEDICARE MEDICAR E PART A & B [id number] 2011-Present [phone] S J15 PART A CLAIMS [address] [address] [place] [address] [id number] .[id number] 2011 Medicare [id number] 2011 Unknown [employer] [place] xxxxxxxx 2011-Present xxxxxxxx [id number] .[id number] 2011 Unknown [id number] 1946 Unknown [id number] 2.16.840.1.868643.3.579.2. 1946 Unknown [id number] 2.16.840.1.109889.3.579.2.900 1946 Unknown [id number] 2.16.840.1.685891.3.579.2 1946 Unknown [id number] 2.16.840.1.636838.3.579.2. 1946 Unknown [id number] 2.16.840.1.565046.3.579.2 1946 Unknown [id number] 2.16.840.1.043773.3.579.2 1946 Unknown [id number] 2.16840.1.730737.3.579.2 1946 Unknown [id number] 2.16.840.1.640102.3.579.2 1946 Unknown [id number] 2.16.840.1.489775.3.579.2 1946 Unknown [id number] 2.16.840.1.187551.3.579.2 1946 Unknown [id number] 2.16.840.1.933638.3.579.2 1946 Unknown [id number] 2.16.840.1.444472.3.579.2 1946 Unknown [id number] 2.16.840.1.730765.3.579.2 1946 Unknown [id number] 2.16.840.1.263606.3.579.2 1946 Unknown [id number] 2.16.840.1.195444.3.579.2 1946 Unknown [id number] 2.16.840.1.511856.3.579.2. 1946 Unknown [id number] 2.16.840.1.121275.3.579.2. 1946 Unknown [id number] 2.16.840.1.530953.3.579.2. 1946 Unknown [id number] 2.16.840.1.507723.3.579.2. 1946 Unknown [id number] 2.16.840.1.397731.3.579.2. 1946 Unknown [id number] 2.16.840.1.559157.3.579.2. 1946 Unknown [id number] 2.16.840.1.705567.3.579.2. 1946 Unknown [id number] 2.16.840.1.633165.3.579.2. 1946 Unknown [id number] 2.16.840.1.336142.3.579.2.90 Unknown xxxxxx-xx 2.16.840.1.498196.3.249.13 Social History Date Type Detail Facility Start: 05-04-2017 End: 08-10-2021 Tobacco smoking status MSIS Former smoker [facility] End: 03-13-1989 History of tobacco use Current smoker [facility] Start: 1945 Sex Assigned At Not on file [facility] Start: 08-11-2014 Alcohol Comment occasionally [facility] Start: 11-09-2018 End: 04-06-2022 Alcohol intake Current drinker of alcohol (finding) [facility] Start: 07-12-2021 End: 05-31-2022 Exposure to SARS-CoV-2 (event) Not sure [facility] Start: 11-04-2019 End: 08-10-2021 Tobacco use and exposure Never used [facility] Exposure to SARS-CoV -2 (event) Unable to assess [facility] Start: 11-23-2020 End: 12-06-2022 Alcohol intake [email or web address] Start: 11-23-2020 History SDOH Alcohol Comment about q3mo [facility] End: 03-13-1989 History of tobacco use Cigarette Smoker [facility] Start: 04-27-2022 End: 12-06-2022 Alcohol intake Ex-drinker (finding) [facility] Start: 05-31-2022 End: 12-06-2022 Tobacco use panel [facility] Start: 07-20-2018 Gender identity Identifies as male gender (finding) [facility] Start: 07-20-2018 Sexual orientation Heterosexual (finding) [facility] Tobacco smoking status No Smokin g Status Entered [facility] Sex Assigned At Male [facility] Lack of Transportati on (Medical) No [facility] None. [facility] [employer] [facility] Former smoker. [email or web address] Functional Status Date Assessment Result Facility 11-27-2022 Functional Status Room check performed [facility] 11-27-2022 Functional Status [facility] 11-27-2022 Functional Status Breakfast Percent 25 [facility] 11-27-2022 Functional Status bilateral knee high applied/on [facility] 11-27-2022 Functional Status [facility] 11-27-2022 Functional Status [facility] 11-26-2022 Functional Status Nurse Pricilla you q2hrs Performed 7pm-11pm [facility] 11-26-2022 Functional Status [facility] 11-26-2022 Functional Status [facility] 11-26-2022 Functional Status [facility] 11-26-2022 Functional Status Assistive Isabel ce Walker [facility] 11-25-2022 Functional Status Independent [facility] 11-25-2022 Functional Status [facility] 11-25-2022 Functional Status Done [facility] 11-24-2022 Functional Status Pt's oldest da radha is a nurse and lives close. [facility] 11-24-2022 Functional Status Assistive Equi pment elevated on pillows [facility] 11-24-2022 Functional Status heel(s)s elevated [facility] 11-24-2022 Functional Status [facility] 11-24-2022 Functional Status [facility] 11-24-2022 Functional Status Sensory Deficits None [facility] NEGATED: Highlighted row Functional performance Functional status health issues are not documented [facility] Work Phone: Mental Status Date Assessment Result Facility 11-27-2022 Mental Status Orientation Orie nted x 4 [facility] 11-26-[address] [facility] Mental Status [facility] 11-26-2022 Mental Status Orientation Assessment Oriented x 4 [facility] 11-25-2022 Mental Status [facility] 11-25-2022 Mental Status [facility] NEGATED: Highlighted row Cognitive function [Interpretation] Cognitive status health issues are not documented [facility] Work Phone: Clinical Notes 08-03-2020 to 12-21-2022 Actions Note Date & Type Note Facility documented in this encounter [id number] History of Present illness Narrative* Sherry George, - 12/06/2022 1:58 PM EDT ESTABLISHED PATIENT -- CECAL MASS This is a 77 y/o male who presents for routine surveillance of right colon cancer. He underwent an open right hemicolectomy on 04/26/22. He denies abdominal pain, nausea, vomiting, constipation, and diarrhea. He denies melena and hematochezia. He denies history of jaundice. He denies unintentional weight loss. He was admitted to [facility] with sepsis 11/23 - 11/27/22, suspected to be from right sided perineal cellulitis. He never underwent I&D or debridement, and no other source of infection was found. He is currently taking a 2nd week of cefdinir and flagyl. Video Editing Intern: Dr. Ramirez General Surgeon, [facility]: Dr. Pizano CANCER HISTORY 03/2022 -- Colonoscopy: cecal mass -- poorly differentiated adenocarcinoma 03/2022 -- EGD: multiple non-bleeding gastric ulcers, no masses 03/2022 -- CEA 17 03/2022 -- CT CAP: no evidence of distant metastatic disease, no ascites, thickened cecum noted 04/26/22 -- Right hemicolectomy COLON: ADENOCARCINOMA Procedure: Right hemicolectomy Macroscopic evaluation of mesorectum (for rectal cancer): Not applicable Tumor site: Cecum Histologic type: Adenocarcinoma Histologic grade: G3: Poorly differentiated Tumor size: 2.7 cm Multiple primary sites: Not applicable (no additional primary sites present) Tumor extent: Invades through muscularis propria into pericolorectal tissue Macroscopic tumor perforation: Not identified Lymphovascular invasion: Not identified Perineural invasion: Not identified Treatment effect: No known presurgical therapy Margins: Margin status for invasive carcinoma: All margins negative for invasive carcinoma Regional lymph nodes: Regional lymph node status: All regional lymph nodes negative for tumor Number of lymph nodes with tumor: 0 Number of lymph nodes examined: 27 Tumor deposits: Not identified Distant site(s) involved: Not applicable AJCC 8th edition pathologic stage: TNM Descriptors: N/A pT3, pN0, pMNot applicable - cannot be determined from the submitted specimen(s) (stage IIA) Ascending colon, resection: Colon: Poorly differentiated adenocarcinoma. See diagnosis comment. Twenty seven lymph nodes, no carcinoma seen (0/27). Appendix: No tumor seen. 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 Coronary artery disease Dialysis patient ([facility] M-W-F ED (erectile dysfunction) FSGS (focal segmental glomerulosclerosis) GERD (gastroesophageal reflux disease) Gout History of blood transfusion Hyperlipidemia Hypertension Insomnia Major depressive disorder MRSA (methicillin resistant Staphylococcus aureus) UNKNOWN Myocardial infarction (HCC) 2005 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) LVEF 30% MARCELO on CPAP 2018 Pneumonia Pulmonary HTN (HCC) Restless legs Sepsis (HCC) Current Outpatient Medications: acetaminophen (TYLENOL) 325 MG tablet, Take 2 (two) tablets (650 mg total) by mouth every 4 (four) hours as needed for pain ., Disp: , Rfl: albuterol (PROVENTIL) 2.5 mg /3 mL (0.083 %) nebulizer solution, Take 3 mL (2.5 mg total) by nebulization 2 (two) times a day as needed for wheezing And as needed ., Disp: , Rfl: allopurinoL (ZYLOPRIM) 100 MG tablet, Take 1 (one) tablet (100 mg total) by mouth daily ., Disp: 90tablet, Rfl: 3 amiodarone (CORDARONE) 100 MG tablet, Take 1 (one) tablet (100 mg total) by mouth daily ., Disp: 90tablet, Rfl: 3 ASCORBATE CALCIUM (VITAMIN C ORAL), Take 500 mg by mouth daily., Disp: , Rfl: aspirin 81 mg chewable tablet, Chew and Swallow 1 (one) tablet (81 mg total) daily Patient cannot take coated aspirin. Uses chewable instead. ., Disp: , Rfl: carvediloL (COREG) 6.25 MG tablet, Take 1 (one) tablet (6.25 mg total) by mouth 2 (two) times a day. (Patient taking differently: Take 0.5 (one-half) tablet (3.125 mg total) by mouth 2 (two) times aday Does not take on dialysis day. .), Disp: 180 tablet, Rfl: 3 cefdinir (OMNICEF) 300 MG capsule, Take 1 (one) capsule (300 mg total) by mouth daily ., Disp: , Rfl: fluticasone propionate (FLONASE) 50 mcg/actuation nasal spray, Instill 2 (two) sprays into each nostril daily ., Disp: , Rfl: gabapentin (NEURONTIN) 100 MG capsule, TAKE 1 CAPSULE NIGHTLY, Disp: 90 capsule, Rfl: 3 glycopyrrolate-formoteroL (Bevespi Aerosphere) 9-4.8 mcg HFAA, Inhale 2 puffs 2 (two) times a day ., Disp: , Rfl: guaiFENesin (MUCINEX) 600 mg 12 hr tablet, Take 1 (one) tablet (600 mg total) by mouth 2 (two) times a day ., Disp: , Rfl: levothyroxine (SYNTHROID, LEVOTHROID) 50 MCG tablet, TAKE 1 TABLET ONCE DAILY, Disp: 90 tablet, Rfl: 3 metroNIDAZOLE (FlagyL) 500 MG tablet, Take 1 (one) tablet (500 mg total) by mouth 3 (three) times aday with meals ., Disp: , Rfl: midodrine (PROAMATINE) 10 MG tablet, Take 1 (one) tablet (10 mg total) by mouth daily only before HD on dialysis days Mon, Wed, Fri ., Disp: , Rfl: nitroGLYCERIN (NITROSTAT) 0.4 MG SL tablet, Place 1 (one) tablet (0.4 mg total) under the tongue every 5 (five) minutes as needed for chest pain ., Disp: 25 tablet, Rfl: 4 OXYGEN-AIR DELIVERY SYSTEMS MISC, Administer 3 L into one nostril as needed (sob) ., Disp: , Rfl: Tawanna-Laura 0.8 mg tablet, Take 1 (one) tablet by mouth daily ., Disp: , Rfl: rosuvastatin (CRESTOR) 10 MG tablet, TAKE 1 TABLET AT BEDTIME RECENT INCREASE FROM 5MG, Disp: 90 tablet, Rfl: 3 sertraline (ZOLOFT) 50 MG tablet, Take 1 (one) tablet (50 mg total) by mouth daily ., Disp: , Rfl: Allergies: Penicillins, Ec aspirin, Prednisone, Amlodipine, and Oxycodone Social History Socioeconomic History Marital status: Tobacco Use Smoking status: Former Types: Cigarettes Quit date: 03/13/1989 Years since quittin.7 Smokeless tobacco: Never Vaping Use Vaping Use: Never used Substance and Sexual Activity Alcohol use: Not Currently Alcohol/week: 1.0 standard drink of alcohol Types: 1 Cans of beer per week Drug use: No Sexual activity: Yes Partners: Female Past Surgical History: Procedure Laterality Date CABG N/A 09/03/2020 Procedure: CORONARY ARTERY BYPASS GRAFT; Surgeon: Mil Dee MD; Location: [facility] Main OR; Service: Cardiothoracic CARDIAC CATHETERIZATION N/A 08/11/2014 Procedure: Left Heart Cath Possible PTCA/Stent; Surgeon: Lenin Ramirez MD; Location: [facility] EDUCATION RN; Service: CARDIAC CATHETERIZATION Right 12/31/2014 Procedure: Left Heart Cath Possible PTCA/Stent; Surgeon: Ranulfo Cobb MD; Location: [facility] EDUCATION RN; Service: CARDIAC CATHETERIZATION 08/11/2014 EF: 55% CARDIAC CATHETERIZATION 11/06/2006 EF: 45% CARDIAC CATHETERIZATION 08/09/2005 EF: 50% CARDIAC CATHETERIZATION 07/08/2005 EF: 45% CARDIAC CATHETERIZATION 12/31/2014 EF: 55% COLECTOMY RIGHT Right 04/26/2022 Procedure: RIGHT OPEN HEMICOLECTOMY; Surgeon: Sherry George DO; Location: [facility] Main OR; Service: General Surgery CORONARY ANGIOPLASTY WITH STENT PLACEMENT 08/09/2005 NORM- CX, RCA CORONARY ANGIOPLASTY WITH STENT PLACEMENT 07/08/2005 NORM- RCA CORONARY STENT PLACEMENT FOOT SURGERY Right hemodialysis fistula graft placement 12/14/2020 INSERTION PLEURAL CATHETER Right 01/18/2021 Procedure: RIGHT PLEUR X CATHETER PLACEMENT; Surgeon: Jalil Sparks MD; Location: [facility] HYBRID OR; Service: Cardiothoracic INSERTION PLEURAL CATHETER Left 01/19/2021 Procedure: LEFT PLEUR X CATHETER PLACEMENT; Surgeon: Jalil Sparks MD; Location: [facility] Main OR; Service: Cardiothoracic INTERVENTIONAL RADIOLOGY PROCEDURE 08/27/2020 IR THORACENTESIS LT 08/27/2020 Jesus Choudhary MD [facility] INTERVENTION RAD INTERVENTIONAL RADIOLOGY PROCEDURE 08/27/2020 IR THORACENTESIS RT 08/27/2020 Jesus Choudhary MD [facility] INTERVENTION RAD INTERVENTIONAL RADIOLOGY PROCEDURE 10/27/2020 IR THORACENTESIS LT 10/27/2020 Varun Kathleen MD [facility] INTERVENTION RAD INTERVENTIONAL RADIOLOGY PROCEDURE 10/27/2020 IR THORACENTESIS RT 10/27/2020 Varun Kathleen MD [facility] INTERVENTION RAD JOINT REPLACEMENT knee replacement KNEE SURGERY REMOVAL PLEURAL CATHETER Bilateral 08/12/2021 Procedure: BILATERAL PLEURAL CATHETERS REMOVAL; Surgeon: Jalil Sparks MD; Location: [facility] Main OR; Service: Cardiothoracic RENAL BIOPSY TONSILLECTOMY Family History Problem Relation Age of Onset Stroke Mother Heart attack Father 54 Heart failure Father Hodgkin's lymphoma Father Surgical complications Neg Hx Anesthesia problems Neg Hx Heart disease Neg Hx Clotting disorder Neg Hx Deep vein thrombosis Neg Hx Pulmonary embolism Neg Hx Review of Systems Constitutional: Negative. HENT: Negative. Eyes: Negative. Respiratory: Negative. Cardiovascular: Negative. Gastrointestinal: Negative. Endocrine: Negative. Genitourinary: Negative. Musculoskeletal: Negative. Skin: Negative. Allergic/Immunologic: Negative. Neurological: Negative. Hematological: Negative. Psychiatric/Behavioral: Negative. Physical Exam BP (!) 94/56 Pulse 71 Ht 5' 7 Wt 77.1 kg (170 lb) BMI 26.63 kg/m GENERAL: Awake, alert, oriented x 3. No acute distress. Gait, ambulation normal. Mood, affect appropriate. SKIN: Warm, dry, intact. No rashes. Right buttock has induration and small pinhole skin opening. There is minimal erythema and no tenderness, consistent with history of spontaneously draining right buttock abscess. There is no expressible fluid, no fluctuance, and no crepitus. HEENT: Head atraumatic, normocephalic. Eyes--EOMI. Lids, sclera, conjunctiva normal. No exophthalmos. External ear anatomy normal. Mucous membranes moist. CV: NSR. No JVD. PULM: Non-labored breathing. No use of accessory muscles. ABDOMEN: Soft, nondistended, nontender. There are no palpable masses or hernias. Midline scar is well-healed. EXTREMITIES: No gross deformities. Imaging N/A Labs Lab Results Component Value Date WBC 10.68 11/29/2022 HGB 9.4 (L) 11/29/2022 HCT 29.8 (L) 11/29/2022 MCV 110.4 (H) 11/29/2022 EXTMCV 90.2 05/07/2018 PLT 148 (L) 11/29/2022 RBC 2.70 (L) 11/29/2022 Lab Results Component Value Date GLUCOSE 126 (H) 11/29/2022 CALCIUM 8.9 11/29/2022 NA 139 11/29/2022 K 3.7 11/29/2022 CL 100 11/29/2022 BUN 41 (H) 11/29/2022 CREATININE 3.96 (H) 11/29/2022 Lab Results Component Value Date CEA 10.16 (H) 11/29/2022 Assessment and Plan: Minh was seen today for cecal mass. Diagnoses and all orders for this visit: Malignant neoplasm of ascending colon, T3 N0 M0, stage IIA Elevated CEA ESRD on dialysis (HCC) Chronic anemia Perineal cellulitis - Agree with 2nd round of antibiotics for right buttock/perineum cellulitis - If right buttock/perineum become more painful, swollen, red, or has more fluid drainage, or if hedevelops a fever, then he should go to the ER. - Repeat CT CAP, CEA, CBC in 3 months, for elevated CEA documented in this [id number] Evaluation + Plan note* Assessment & Plan Note - Lenin Ramirez MD - 12/06/2022 12:27 PM EDT Associated Problem(s): PAF (paroxysmal atrial fibrillation) (HCC) He continues to experience episodes of paroxysmal atrial fibrillation which remain asymptomatic. Heremains on amiodarone which is being utilized as not only for rhythm control but also rate control given his inability to tolerate other rate control therapy. He recently underwent amiodarone surveillance blood work which was unremarkable. He certainly is not a candidate for oral anticoagulation and we discussed this in detail. We also discussed the potential use of Watchman and it was felt that this is also not appropriate at the present time. [id number] Evaluation + Plan note* Assessment & Plan Note - Lenin Ramirez MD - 12/06/2022 12:27 PM EDTAssociated Problem(s): Hyperlipidemia He remains on moderate dose, high potency statin therapy which he tolerates well with adequate lipid levels. No changes were made today. [id number] Miscellaneous Notes* Assessment & Plan Note - Lenin Ramirez MD - 12/06/2022 12:27 PM EDTAssociated Problem(s): PAF (paroxysmal atrial fibrillation) (HCC) He continues to experience episodes of paroxysmal atrial fibrillation which remain asymptomatic. Heremains on amiodarone which is being utilized as not only for rhythm control but also rate control given his inability to tolerate other rate control therapy. He recently underwent amiodarone surveillance blood work which was unremarkable. He certainly is not a candidate for oral anticoagulation and we discussed this in detail. We also discussed the potential use of Watchman and it was felt that this is also not appropriate at the present time. * Assessment & Plan Note - Lenin Ramirez MD - 12/06/2022 12:27 PM EDT Associated Problem(s): Hyperlipidemia He remains on moderate dose, high potency statin therapy which he tolerates well with adequate lipid levels. No changes were made today. * Assessment & Plan Note - Lenin Ramirez MD - 12/06/2022 12:25 PM EDT Associated Problem(s): Chronic systolic congestive heart failure (HCC) His heart failure has been fairly well controlled on minimal medical therapy. His most recent echocardiogram earlier this year and demonstrated persistence of severe global left ventricular systolic dysfunction with ejection fraction of 25 to 30% but no significant valvular abnormalities. Unfortunately he has been unable to tolerate guideline directed medical therapy given his persistent hypotension and hemodialysis. * Assessment & Plan Note - Lenin Ramirez MD - 12/06/2022 12:24 PM EDT Associated Problem(s): Coronary artery disease involving [place] coronary artery of [place] heart without angina pectoris Ed continues doing well from an ischemic standpoint with a long history of coronary disease status post surgical revascularization in August 2020. He has no angina and no nitroglycerin use. documented in this [id number] Evaluation + Plan note* Assessment & Plan Note - Lenin Ramirez MD - 12/06/2022 12:25 PM EDT Associated Problem(s): Chronic systolic congestive heart failure (HCC) His heart failure has been fairly well controlled on minimal medical therapy. His most recent echocardiogram earlier this year and demonstrated persistence of severe global left ventricular systolic dysfunction with ejection fraction of 25 to 30% but no significant valvular abnormalities. Unfortunately he has been unable to tolerate guideline directed medical therapy given his persistent hypotension and hemodialysis. [id number] Evaluation + Plan note* Assessment & Plan Note - Lenin Ramirez MD - 12/06/2022 12:24 PM EDTAssociated Problem(s): Coronary artery disease involving [place] coronary artery of [place] heart without angina pectoris Ed continues doing well from an ischemic standpoint with a long history of coronary disease status post surgical revascularization in August 2020. He has no angina and no nitroglycerin use. [id number] History of Present illness Narrative* Lenin Ramirez MD - 12/06/2022 12:22 PM EDT I saw Minh Gonzalez in follow up in the office on 12/06/22. Ed was apparently recently hospitalized with sepsis related to an abscess on his buttock. He was treated with antibiotics which she is still taking and his systemic symptoms have improved although he continues to drain from the site. His cardiac status has been very stable with no angina nor signs or symptoms of heart failure. He continues to tolerate hemodialysis fairly well although hypotension remains an issue. He does remain compliant with his medications which he tolerates quite well with no apparent side effects. Review of Systems: Documented in Medical Record Physical Exam Vital Signs: BP (!) 98/58 Pulse 76 Ht 5' 7 BMI 25.84 kg/m General: No acute distress, alert, and oriented x3. Skin: Normal turgor, well-hydrated, HEENT: Normocephalic,EOMI Neck: Supple, no bruits Cardiovascular: Regular rate and rhythm. No murmurs gallops or rubs. No JVD. No peripheral edema noted. Respiratory: Decreased breath sounds but otherwise clear to auscultation and percussion, no rales, rhonchi or wheezes Abdominal: Soft, nontender, nondistended, without masses or bruits. Extremities : No clubbing or cyanosis. Pulses intact. Neurological: Cranial nerves grossly intact. No focal neurological deficits noted. Psych: Normal mood and affect Allergy Information: I have reviewed the patient's allergies. Penicillins, Ec aspirin, Prednisone, Amlodipine, and Oxycodone Home Medications: Current Outpatient Medications: acetaminophen (TYLENOL) 325 MG tablet, Take 2 (two) tablets (650 mg total) by mouth every 4 (four) hours as needed for pain ., Disp: , Rfl: albuterol (PROVENTIL) 2.5 mg /3 mL (0.083 %) nebulizer solution, Take 3 mL (2.5 mg total) by nebulization 2 (two) times a day as needed for wheezing And as needed ., Disp: , Rfl: allopurinoL (ZYLOPRIM) 100 MG tablet, Take 1 (one) tablet (100 mg total) by mouth daily ., Disp: 90tablet, Rfl: 3 amiodarone (CORDARONE) 100 MG tablet, Take 1 (one) tablet (100 mg total) by mouth daily ., Disp: 90tablet, Rfl: 3 ASCORBATE CALCIUM (VITAMIN C ORAL), Take 500 mg by mouth daily., Disp: , Rfl: aspirin 81 mg chewable tablet, Chew and Swallow 1 (one) tablet (81 mg total) daily Patient cannot take coated aspirin. Uses chewable instead. ., Disp: , Rfl: carvediloL (COREG) 6.25 MG tablet, Take 1 (one) tablet (6.25 mg total) by mouth 2 (two) times a day. (Patient taking differently: Take 0.5 (one-half) tablet (3.125 mg total) by mouth 2 (two) times aday Does not take on dialysis day. .), Disp: 180 tablet, Rfl: 3 cefdinir (OMNICEF) 300 MG capsule, Take 1 (one) capsule (300 mg total) by mouth daily ., Disp: , Rfl: fluticasone propionate (FLONASE) 50 mcg/actuation nasal spray, Instill 2 (two) sprays into each nostril daily ., Disp: , Rfl: gabapentin (NEURONTIN) 100 MG capsule, TAKE 1 CAPSULE NIGHTLY, Disp: 90 capsule, Rfl: 3 glycopyrrolate-formoteroL (Bevespi Aerosphere) 9-4.8 mcg HFAA, Inhale 2 puffs 2 (two) times a day ., Disp: , Rfl: guaiFENesin (MUCINEX) 600 mg 12 hr tablet, Take 1 (one) tablet (600 mg total) by mouth 2 (two) times a day ., Disp: , Rfl: levothyroxine (SYNTHROID, LEVOTHROID) 50 MCG tablet, TAKE 1 TABLET ONCE DAILY, Disp: 90 tablet, Rfl: 3 metroNIDAZOLE (FlagyL) 500 MG tablet, Take 1 (one) tablet (500 mg total) by mouth 3 (three) times aday with meals ., Disp: , Rfl: midodrine (PROAMATINE) 10 MG tablet, Take 1 (one) tablet (10 mg total) by mouth daily only before HD on dialysis days Mon, Wed, Fri ., Disp: , Rfl: nitroGLYCERIN (NITROSTAT) 0.4 MG SL tablet, Place 1 (one) tablet (0.4 mg total) under the tongue every 5 (five) minutes as needed for chest pain ., Disp: 25 tablet, Rfl: 4 OXYGEN-AIR DELIVERY SYSTEMS MISC, Administer 3 L into one nostril as needed (sob) ., Disp: , Rfl: Tawanna-Laura 0.8 mg tablet, Take 1 (one) tablet by mouth daily ., Disp: , Rfl: rosuvastatin (CRESTOR) 10 MG tablet, TAKE 1 TABLET AT BEDTIME RECENT INCREASE FROM 5MG, Disp: 90 tablet, Rfl: 3 sertraline (ZOLOFT) 50 MG tablet, Take 1 (one) tablet (50 mg total) by mouth daily ., Disp: , Rfl: Assessment/Plan: Coronary artery disease involving [place] coronary artery of [place] heart without angina pectoris Ed continues doing well from an ischemic standpoint with a long history of coronary disease status post surgical revascularization in August 2020. He has no angina and no nitroglycerin use. Chronic systolic congestive heart failure (HCC) His heart failure has been fairly well controlled on minimal medical therapy. His most recent echocardiogram earlier this year and demonstrated persistence of severe global left ventricular systolic dysfunction with ejection fraction of 25 to 30% but no significant valvular abnormalities. Unfortunately he has been unable to tolerate guideline directed medical therapy given his persistent hypotension and hemodialysis. Hyperlipidemia He remains on moderate dose, high potency statin therapy which he tolerates well with adequate lipid levels. No changes were made today. PAF (paroxysmal atrial fibrillation) (HCC) He continues to experience episodes of paroxysmal atrial fibrillation which remain asymptomatic. Heremains on amiodarone which is being utilized as not only for rhythm control but also rate control given his inability to tolerate other rate control therapy. He recently underwent amiodarone surveillance blood work which was unremarkable. He certainly is not a candidate for oral anticoagulation and we discussed this in detail. We also discussed the potential use of Watchman and it was felt that this is also not appropriate at the present time. documented in this [id number] Hospital Discharge instructions Patient Education 11/27/2022 13:25:49 Sepsis, Self Care, Adult Sepsis, Self Care, Adult Sepsis is a serious illness that may require intensive care in the hospital. The following information explains what you need to know in order to manage your condition after you are discharged from the hospital. What are the risks? After being treated for sepsis and discharged from the hospital, you may be at a higher risk for certain problems. These problems may be physical or mental. Physical problems: Weakness and tiredness. Shortness of breath. Pain in many areas of the body. Difficulty walking. Dry, itchy skin. Lack of appetite. This may lead to weight loss. Organ failure. Mental problems: Difficulty sleeping. Depression. Confusion. Anxiety and worry caused by having gone through a bad experience (post-traumatic stress disorder,PTSD). Low self-esteem. Follow these instructions at home: Medicines Take ibrr-cna-zeaaxub and prescription medicines only as told by your health care provider. If you were prescribed an antibiotic, antiviral, or antifungal medicine, take it as told by your health care provider. Do not stop taking the medicine even if you start to feel better. Eating and drinking Eat a healthy diet that includes plenty of vegetables, fruits, whole grains, low-fat dairy products, and lean protein. Ask your health care provider if you should avoid certain foods. Drink enough fluid to keep your urine pale yellow. Alcohol use Do not drink alcohol if: ?Your health care provider tells you not to drink. ?You are , may be , or are planning to become . If you drink alcohol, limit how much you use to: ?0 1 drink a day for women. ?0 2 drinks a day for men. ?Be aware of how much alcohol is in your drink. In the [place] one drink equals one 12 oz bottle of beer (355 mL), one 5 oz glass of wine (148 mL), or one 1 oz glass of hard liquor (44 mL). Activity Rest and gradually return to your normal activities. Ask your health care provider what activities are safe for you. Avoid sitting for a long time without moving. Get up to take short walks every 1 2 hours. This is important to improve blood flow and breathing. Ask for help if you feel weak or unsteady. Try to set small, achievable goals each week, such as dressing yourself, bathing, or walking up thestairs. It may take a while to rebuild your strength. Try to exercise regularly if you feel healthy enough to do so. Ask your health care provider what exercises are safe for you. Preventing infection Keep your vaccinations up to date. Get the flu shot every year. Wash your hands often using soap and water. Use hand agronomy research manager if soap and water are not available. Practice good hygiene. Keep cuts clean and covered until healed. Managing stress Talk with your health care provider or counselor about ways to reduce stress. He or she may suggest: Meditation, muscle relaxation, and breathing exercises. Talk therapy. Spending time on hobbies and activities that you enjoy. General instructions Get the right amount and quality of sleep. Most adults need 7 9 hours of sleep each night. To help with sleep: ?Keep your bedroom cool and dark. ?Do not eat a heavy meal within one hour of bedtime. ?Do not drink alcohol or caffeinated drinks before bed. ?Avoid screen time, such as television, computers, tablets, or cell phones before bed. Do not use any products that contain nicotine or tobacco, such as cigarettes, e- cigarettes, and chewing tobacco. If you need help quitting, ask your health care provider. Talk to trusted family members and friends about your condition. Explain your symptoms to them, andlet them know that you are working with a health care provider to treat your condition. This can provide you with one way to get support and guidance. Keep all follow-up visits as told by your health care provider. This is important. Questions to ask your health care provider: What physical and emotional changes do I need to report? Do I need to have someone with me all the time? Is it safe for me to drive? Contact a health care provider if you: Do not feel like you are getting better or regaining strength. Have muscle or joint pain. Frequently feel tired. Are having trouble coping with your recovery. Have nightmares, or trouble falling asleep or staying asleep. Feel sad, down, or depressed more often than not, every day for more than 2 weeks. Have difficulty concentrating. Feel irritable or you cry for no reason. Get help right away if you: Have difficulty breathing. Have a rapid or skipping heartbeat. Become confused or disoriented. See, hear, or feel things that do not exist (hallucinations). Have a high fever. Have an infection that is getting worse or not getting better. You have thoughts of hurting yourself or others. If you ever feel like you may hurt yourself or others, or have thoughts about taking your own life,get help right away. You can go to your nearest emergency department or call: Your local emergency services (911 in the [place] A suicide crisis helpline, such as the National Suicide Prevention Lifeline at . Thisis open 24 hours a day. Summary Sepsis is a serious illness that may require intensive care in a hospital. You may experience long-term health effects after you are discharged from the hospital. Try to set small, achievable goals each week, such as dressing yourself, bathing, or walking up thestairs. It may take a while to rebuild your strength. Keep all follow-up visits as told by your health care provider. This is important. Know what symptoms you should get help right away for. This information is not intended to replace advice given to you by your health care provider. Make sure you discuss any questions you have with your health care provider. Document Released: 10/05/2018 Document Revised: 10/05/2018 Document Reviewed: 10/05/2018 [employer] Patient Education 2020 [employer] Follow Up Care 11/23/2022 18:14:48 With:ZACK OLMOS MD Address: [address] [place] [address] [place] [address]- [phone] When:3-7 days [facility] 09-17-2023 Discharge summary Date of Service 11/27/2022 Discharge Diagnosis 1. Acute septic shock secondary to perineal cellulitis. Resolved. 2. Acute perineal cellulitis. CT showed no evidence of fluid collection/abscess. Patient was initially placed on vancomycin and cefepime which was de-escalated to ceftriaxone and metronidazole. Patient showed continued improvement on this antibiotic regimen for which she will be discharged on cefdinir and metronidazole for 7 days that are renally dosed. 3. Chronic end-stage renal disease on hemodialysis. 4. Chronic hypotension on midodrine therapy. 5. Chronic hypoxic respiratory failure on 3 L nasal cannula oxygen. 6. Chronic coronary artery disease status post CABG. No signs of ischemia. 7. Chronic paroxysmal atrial fibrillation, not on anticoagulation due to history of bleeding from fistula. 8. Chronic acquired hypothyroidism. 9. Chronic hyperlipidemia. 10. Chronic anxiety and depression. Hospital Course Patient is a 77-year-old male with past medical history significant for end- stage renal disease on hemodialysis, chronic hypotension on midodrine, chronic hypoxic respiratory failure on 3 L nasal cannula oxygen, coronary artery disease status post CABG, atrial fibrillation not on anticoagulation due to history of bleeding from fistula site, hypothyroidism, history of large bowel cancer status post resection, anxiety, depression and gout. Patient was admitted to [facility] on 11/23/2022 as a transfer from [facility] due to septic shock secondary to peritoneal cellulitis. Patient was ordered broad-spectrum antibiotics with vancomycin and cefepime. Patient did require vasopressorsupport with norepinephrine. Nephrology was consulted hemodialysis. CT abdomen/pelvis was performedwhich showed no evidence of fluid collection in the perineal region to suggest abscess. After patient was able to be successfully weaned off vasopressor support, patient was transferred out of the ICU. Following transfer, antibiotics were de-escalated from vancomycin and cefepime to ceftriaxone and metronidazole. Patient continued improvement which time he was cleared for discharge home. Patient will be prescribed renally dosed cefdinir and metronidazole for 7 days. Outpatient follow-up with primary care provider. Discussed with at bedside. Allergies Aspirin Enteric Coated amLODIPine indomethacin penicillin (Prednisone) predniSONE rOPINIRole traZODone Procedures None. Consults 1. Dr. Ashley Marley, nephrology. Consultation for ESRD on hemodialysis. Imaging Results and Diagnostics CT Abdomen/Pelvis w/o Contrast Result Date: November 24, 2022 Verified By: JL CRUM MD CLINICAL STATEMENT: IMPRESSION: No evidence of a fluid collection in the perineal region to suggest an abscess. Question mild pancreatic stranding in the region of the pancreatic tail.Correlate with lab values to exclude acute pancreatitis. Bilateral small pleural effusions and mild interlobular septal thickening compatible with pulmonary edema. Trace nonspecific free fluid in the pelvis. I have personally reviewed the images of this examination and agree with the resident's findings and interpretation. XR Chest 1 View Result Date: November 24, 2022 Verified By: JL CRUM MD CLINICAL STATEMENT: IMPRESSION: Findings suggestive of mild congestion/edema. Small bilateral effusions.Developing infectious or inflammatory process not excluded. Physical Exam Vitals and Measurements T: 36.5 C (Oral) TMIN: 36.0 C (Skin) TMAX: 36.9 C (Oral) HR: 89 RR: 18 BP: 105/74 SpO2: 98% WT: 80.5 kg Weight Dosing Weight: 80.5 kg (11/26/22) Dosing Weight: 81.9 kg (11/26/22) GENERAL: No acute distress. MOUTH: Moist membranes. NECK: Supple. CARDIOVASCULAR: S1 S2 heard, regular rate and rhythm, no murmurs. No JVD, no edema. Left AV fistula. RESPIRATORY: Clear to auscultation bilaterally. ABDOMEN: Soft, nontender, nondistended, no rebound or guarding, bowel sounds present in all 4 quadrants. INTEGUMENTARY: Continued improvement perineal cellulitis with no evidence of fluid collection, fluctuance or purulence. NEUROLOGIC: Awake, alert and oriented x3, no focal neurologic deficits. PSYCHIATRIC: Excited for discharge. Pending Labs and Studies None. Code Status DNRCC-Arrest Intubate & Mechanical Vent. Admission Date 11/24/2022 Discharge Date 11/27/2022 Medications New Prescription cefdinir (cefdinir 300 mg oral capsule)1 cap by mouth every 24 hours for 7 Days. Refills: 0. metroNIDAZOLE (metroNIDAZOLE 500 mg oral tablet)1 tab(s) by mouth every 8 hours for 7 Days. Refills: 0. Unchanged albuterol (albuterol 2.5 mg/3 mL (0.083%) inhalation solution)3 Milliliter by inhalation every 6 hours as needed Shortness of breath or wheezing. allopurinol (allopurinol 100 mg oral tablet)1 tab(s) by mouth once a day after a meal. amiodarone (amiodarone 100 mg oral tablet)2 tab(s) by mouth once a day. ascorbic acid (Vitamin C 500 mg oral tablet)1 tab(s) by mouth once a day. carvedilol (Coreg 3.125 mg oral tablet)1 tab(s) by mouth every Mon / / / Mon. fluticasone nasal (fluticasone 50 mcg/inh NASAL spray)2 spray(s) each nostril once a day (in the morning). formoterol-glycopyrrolate (Bevespi Aerosphere 9 mcg-4.8 mcg/inh inhalation aerosol)2 puff(s) by inhalation two (2) times a day. gabapentin (gabapentin 100 mg oral capsule)2 cap by mouth daily at bedtime. levothyroxine (levothyroxine 25 mcg (0.025 mg) oral tablet)2 tab(s) by mouth once a day before a meal. midodrine (midodrine 10 mg oral tablet)1 tab(s) by mouth Monday / Monday / Monday. multivitamin (Tawanna-Laura oral tablet)1 tab(s) by mouth every day. nitroGLYcerin (nitroglycerin 0.4 mg sublingual tablet)1 tab(s) under the tongue every 5 minutes as needed for chest pain. rosuvastatin (rosuvastatin 10 mg oral tablet)1 tab(s) by mouth daily at bedtime. sertraline (sertraline 50 mg oral tablet)1 tab(s) by mouth once a day. Follow Up Follow Up with ZACK OLMOS MD When Within 3-7 days Where: [address] [place] [address] [place] [address]- [phone] Follow Up Labs/Studies 1. No follow up labs. 2. No follow up studies. Discharge Diet No changes were made to your diet during your hospital stay. Please resume your pre hospitalizationdiet on discharge. Discharge Activity Activity As Tolerated. Condition on Discharge Stable. Discharge Disposition Home. Information Provided To at bedside. Time Spent 36 minutes spent on direct patient care including evaluation of perineal cellulitis, medical decision making regarding pertinence of discharge antibiotics, discharge planning and counseling the patient patient's . Digitally Signed by KATELIN MEZA DO on 11/27/2022 02:06 PM [facility] [id number] Note Discharge Instructions Thank you for allowing [facility] to assist you with your healthcare needs. The following is importantdischarge information regarding your hospital visit. Your Care Team ZACK OLMOS MD What to do next Follow Up Appointments Follow Up with ZACK OLMOS MD When Within 3-7 days Where: [address] [place] [address] [place] [address]- [phone] The Following Activity and Diet Have Been Ordered for You Discharge Activity - Ordered -- Activity As Tolerated, 11/27/22 12:45:00 EDT Discharge Diet - Ordered -- No changes were made to your diet during your hospital stay. Please resume your pre hospitalization diet on discharge., 11/27/22 12:45:00 EDT Allergies Aspirin Enteric Coated amLODIPine indomethacin penicillin (Prednisone) predniSONE rOPINIRole traZODone Medications Please ask your primary doctor or pharmacist before taking any other medication not listed, including over the counter drugs, herbal medications, vitamins and or supplements as they may interact [facility]. What How Much When Instructions Last Dose New cefdinir (cefdinir 300 mg oral capsule) 1 cap by mouth Every 24 hours Duration: 7 Days Pickup at [facility]22 New metroNIDAZOLE (metroNIDAZOLE 500 mg oral tablet) 1 tab(s) by mouth Every 8 hours Duration: 7 Days Pickup at [facility] 1724 Unchanged albuterol (albuterol 2.5 mg/ 3 mL (0.083%) inhalation solution) 3 Milliliter by inhalation Every 6 hours as needed for Shortness of breath or wheezing Unchanged allopurinol (allopurinol 100 mg oral tablet) 1 tab(s) by mouth Once a day after a meal Unchanged amiodarone (amiodarone 100 mg oral tablet) 2 tab(s) by mouth Once a day Unchanged ascorbic acid (Vitamin C 500 mg oral tablet) 1 tab(s) by mouth Once a day Unchanged carvedilol (Coreg 3.125 mg oral tablet) 1 tab(s) by mouth Every Mon / / / Sat Unchanged fluticasone nasal (fluticasone 50 mcg/ inh NASAL spray) 2 spray(s) each nostril Once a day (in the morning) Unchanged formoterol-glycopyrrolate (Bevespi Aerosphere 9 mcg-4.8 mcg/ inh inhalation aerosol) 2 puff(s) by inhalation Two (2) times a day Unchanged gabapentin (gabapentin 100 mg oral capsule) 2 cap by mouth Daily at bedtime Unchanged levothyroxine (levothyroxine 25 mcg (0.025 mg) oral tablet) 2 tab(s) by mouth Once a day before a meal Unchanged midodrine (midodrine 10 mg oral tablet) 1 tab(s) by mouth Monday / Monday / Monday Unchanged multivitamin (Tawanna-Laura oral tablet) 1 tab(s) by mouth Every day Unchanged nitroGLYcerin (nitroglycerin 0.4 mg sublingual tablet) 1 tab(s) under the tongue Every 5 minutes as needed for for chest pain Unchanged rosuvastatin (rosuvastatin 10 mg oral tablet) 1 tab(s) by mouth Daily at bedtime Unchanged sertraline (sertraline 50 mg oral tablet) 1 tab(s) by mouth Once a day Pharmacy Information [facility]: [address] [place], [place] [id number] [phone] Please take this list to your next doctor s visit. Bring all medications you take, including over the counter medications, herbals and other supplements with you to your doctor s visit. Patients and families are reminded to discard old lists and to update any records with all medication providers or retail pharmacies. Education Materials Sepsis, Self Care, Adult Sepsis is a serious illness that may require intensive care in the hospital. The following information explains what you need to know in order to manage your condition after you are discharged from the hospital. What are the risks? After being treated for sepsis and discharged from the hospital, you may be at a higher risk for certain problems. These problems may be physical or mental. Physical problems: Weakness and tiredness. Shortness of breath. Pain in many areas of the body. Difficulty walking. Dry, itchy skin. Lack of appetite. This may lead to weight loss. Organ failure. Mental problems: Difficulty sleeping. Depression. Confusion. Anxiety and worry caused by having gone through a bad experience (post-traumatic stress disorder,PTSD). Low self-esteem. Follow these instructions at home: Medicines Take [id number]-hpgcnis and prescription medicines only as told by your health care provider. If you were prescribed an antibiotic, antiviral, or antifungal medicine, take it as told by your health care provider. Do not stop taking the medicine even if you start to feel better. Eating and drinking Eat a healthy diet that includes plenty of vegetables, fruits, whole grains, low-fat dairy products, and lean protein. Ask your health care provider if you should avoid certain foods. Drink enough fluid to keep your urine pale yellow. Alcohol use Do not drink alcohol if: ? Your health care provider tells you not to drink. ? You are , may be , or are planning to become . If you drink alcohol, limit how much you use to: ? 0 1 drink a day for women. ? 0 2 drinks a day for men. ? Be aware of how much alcohol is in your drink. In the [place] one drink equals one 12 oz bottle of beer (355 mL), one 5 oz glass of wine (148 mL), or one 1 oz glass of hard liquor (44 mL). Activity Rest and gradually return to your normal activities. Ask your health care provider what activities are safe for you. Avoid sitting for a long time without moving. Get up to take short walks every 1 2 hours. This is important to improve blood flow and breathing. Ask for help if you feel weak or unsteady. Try to set small, achievable goals each week, such as dressing yourself, bathing, or walking up thestairs. It may take a while to rebuild your strength. Try to exercise regularly if you feel healthy enough to do so. Ask your health care provider what exercises are safe for you. Preventing infection Keep your vaccinations up to date. Get the flu shot every year. Wash your hands often using soap and water. Use hand agronomy research manager if soap and water are not available. Practice good hygiene. Keep cuts clean and covered until healed. Managing stress Talk with your health care provider or counselor about ways to reduce stress. He or she may suggest: Meditation, muscle relaxation, and breathing exercises. Talk therapy. Spending time on hobbies and activities that you enjoy. General instructions Get the right amount and quality of sleep. Most adults need 7 9 hours of sleep each night. To help with sleep: ? Keep your bedroom cool and dark. ? Do not eat a heavy meal within one hour of bedtime. ? Do not drink alcohol or caffeinated drinks before bed. ? Avoid screen time, such as television, computers, tablets, or cell phones before bed. Do not use any products that contain nicotine or tobacco, such as cigarettes, e- cigarettes, and chewing tobacco. If you need help quitting, ask your health care provider. Talk to trusted family members and friends about your condition. Explain your symptoms to them, andlet them know that you are working with a health care provider to treat your condition. This can provide you with one way to get support and guidance. Keep all follow-up visits as told by your health care provider. This is important. Questions to ask your health care provider: What physical and emotional changes do I need to report? Do I need to have someone with me all the time? Is it safe for me to drive? Contact a health care provider if you: Do not feel like you are getting better or regaining strength. Have muscle or joint pain. Frequently feel tired. Are having trouble coping with your recovery. Have nightmares, or trouble falling asleep or staying asleep. Feel sad, down, or depressed more often than not, every day for more than 2 weeks. Have difficulty concentrating. Feel irritable or you cry for no reason. Get help right away if you: Have difficulty breathing. Have a rapid or skipping heartbeat. Become confused or disoriented. See, hear, or feel things that do not exist (hallucinations). Have a high fever. Have an infection that is getting worse or not getting better. You have thoughts of hurting yourself or others. If you ever feel like you may hurt yourself or others, or have thoughts about taking your own life,get help right away. You can go to your nearest emergency department or call: Your local emergency services (911 in the [place] A suicide crisis helpline, such as the National Suicide Prevention Lifeline at . Thisis open 24 hours a day. Summary Sepsis is a serious illness that may require intensive care in a hospital. You may experience long-term health effects after you are discharged from the hospital. Try to set small, achievable goals each week, such as dressing yourself, bathing, or walking up thestairs. It may take a while to rebuild your strength. Keep all follow-up visits as told by your health care provider. This is important. Know what symptoms you should get help right away for. This information is not intended to replace advice given to you by your health care provider. Make sure you discuss any questions you have with your health care provider. Document Released: 10/05/2018 Document Revised: 10/05/2018 Document Reviewed: 10/05/2018 [employer] Patient Education 2020 [employer]. Additional Information VACCINATE! IT SAVES LIVES! Members of the community who have not yet received the COVID-19 vaccine and would like to receive it can visit one of [facility] vaccine clinics. There are many vaccine clinic locations within the [facility]. For locations and available times, please visit https://gettheshot.coronavirus.[place].gov/. It is important to note that some COVID mobile vaccine clinics are held outdoors and may be canceled in rainy or stormy conditions. To learn more about pediatric vaccinations (ages 5-11), we invite you to visit the [facility] webpage. [email or web address].[email or web address].org/pages/4394-Yeloi-Vygvxcyddvh-Corxapifvf-Ytkdf-[email or web address] stions.htmlTo learn more about the COVID-19 vaccine, we invite you to visit the CDC website for a list of frequently asked questions.https://www.cdc.gov/coronavirus/2019-ncov/vaccines/faq.html [employer] Patient Portal Access Instructions: Stay connected with your healthcare team and access your personal medical information anytime with the [employer] Patient Portal. Please follow the directions below to create your [employer] account: 1.Access the email account you provided upon registration to the hospital/physician office.2.Look for an invitation email from [facility].3.Open the email and access the invitation link: AcceptInvitation to [employer].4.Fill in the required jimenez to create your account. To access your account, visit [place]/LIFT12hart. Click the blue button labeled Access Patient Portal and then log in with the username and password that you created in the steps above. You will be able to view your test results, lab results, a summary of your visits, upcoming appointments and more. There is also a convenient messaging option where you can send secure messages to your p rovider. In addition, you will have the ability to download any documents or summaries to your computer and/or send the information securely to a physician. Remember that your healthcare information is confidential, so carefully consider who you will allowto register on the [facility] Patient Portal for access to your information. You can also [facility] on the [place] [facility] cat[facility]acho. Simply click on Patient Portal and then log into your account. If you would like to receive a full copy of your medical records, please contact the [facility] Medical Records Department by calling [phone], Monday through Monday between 8 a.m. and 4:30 p.m. HOW TO SAFELY DISPOSE OF PRESCRIPTION MEDICATIONS Please use one of the following methods to safely dispose of your unused medications. 1.Use a drug disposal kit: the drug disposal pouch allows you to safely discard your old and unuseddrugs. Ask your nurse to give you one when you are discharged.2.Visit a local take-back location: Many local pharmacies and police departments have programs that collect old and unwanted prescriptiondrugs. Call your local pharmacy or go to http://Tetragenetics.Dishcrawl/1A0Om3s to find one close to you.3.Make use of household items: Use cat litter or old coffee grounds to dispose medications if other options arenot available. Mix your drugs with these household products, seal them in an airtight container andthrow it into the garbage. Call [facility]: [phone] to be sure your drugs can be disposed of in this way. Some medicines may require a different approach.4.Never flush your medications down the toilet. IF YOU HAVE BEEN PRESCRIBED AN OPIOID FOR PAIN If you have been prescribed an opioid (such as hydrocodone, oxycodone or morphine), it is critical to understand the possible side effects and risks of opioid pain medications. Even when taken as directed, opioids can have several side effects including: Tolerance, meaning you might need to take more of a medication for the same pain relief. Nausea, vomiting and/or constipation. Sleepiness, dizziness, dry mouth, confusion, depression or itching. Physical dependence, meaning you have withdrawal symptoms when a medication is stopped, can develop within a few days. KNOW YOUR RESPONSIBILITIES It is important to know exactly how much and how often to take the opioid pain medications you are prescribed. Never take opioids in higher amounts or more often than prescribed. Do not combine opioids with alcohol or other drugs that cause drowsiness, such as benzodiazepines, also known as benzos, including diazepam and alprazolam, muscle relaxants or sleep aids. Never sell or share prescription opioids. This is illegal. Store opioids in a secure place and out of reach of others (including children, family, friends and visitors). The last page of this document has been signed and retained as a CHART COPY. Signatures Patient Education Materials Sepsis, Self Care, Adult Medication Leaflets My discharge plan and instructions have been reviewed and explained to me and I,MINH GONZALEZ understand my current condition and have read and understand these discharge instructions. I have received a written copy of the plan/instructions. If I have questions, I am aware that I should contact my doctor. Patient/Trailer Park Manager Signature: Date/Time: Relationship to Patient: Witness Name/Signature: Date/Time: [facility] [id number] Respiratory therapy Hospital Progress note Respiratory Therapy Evaluation Entered On: 11/27/2022 10:11 EDT Performed On: 11/27/2022 10:11 EDT by Zuly Rodriguez BEEF CATTLE FARM WORKER Respiratory Therapy Evaluation RT Assessment [Frequency/Schedule] : changed to TID per protocol Zuly Rodriguez BEEF CATTLE FARM WORKER - 11/27/2022 10:52 EDT Chest X-Ray : Infiltrates, atelectasis, pleural effusion Breath Sounds (RT) : Decreased bilaterally Respiratory Pattern (RT) : Regular RR=12-20 Cough (RT) : Strong, non-productive Respiratory Therapy Evaluation Score : 8 Respiratory Evaluation Triage Score : 4 - (6-10) Freq: TIDRT & Albuterol Q2hRT prn Zuly Rodriguez BEEF CATTLE FARM WORKER - 11/27/2022 10:28 EDT Pulmonary Status : Pulmonary disorder Surgical Status : No surgeries Level of Activity : Ambulatory with assistance Mental Status : Alert, oriented Zuly Rodriguez BEEF CATTLE FARM WORKER - 11/27/2022 10:11 EDT Digitally Signed by Zuly Rodriguez BEEF CATTLE FARM WORKER on 11/27/2022 10:52 AM [facility] [id number] Note Date of Service 11/26/2022 Chief Complaint Patient seen and examined for septic shock secondary to perineal cellulitis. Subjective Patient is a 77-year-old male with past medical history significant for end- stage renal disease on hemodialysis, chronic hypotension on midodrine, chronic hypoxic respiratory failure on 3 L nasal cannula oxygen, coronary artery disease status post CABG, atrial fibrillation not on anticoagulation due to history of bleeding from fistula site, hypothyroidism, history of large bowel cancer status post resection, anxiety, depression and gout. Patient was admitted to [facility] on 11/23/2022 as a transfer from [facility] due to septic shock secondary to peritoneal cellulitis. Patient was ordered broad-spectrum antibiotics with vancomycin and cefepime. Patient did require vasopressorsupport with norepinephrine. Nephrology was consulted hemodialysis. CT abdomen/pelvis was performedwhich showed no evidence of fluid collection in the perineal region to suggest abscess. After patient was able to be successfully weaned off vasopressor support, patient was transferred out of the ICU. Following transfer, antibiotics were de-escalated from vancomycin and cefepime to ceftriaxone and metronidazole. Today, patient's pain around his perineal cellulitis is improving. There is still a significant amount of indurated skin. As patient did receive broad- spectrum antibiotics yesterday which were de-escalated yesterday evening, we will continue current antibiotics today and monitor further response. If patient continues to improve, I anticipate patient will be able to be discharged tomorrow on oral antibiotics. Discussed with patient's daughter at bedside who is a nurse and agrees with the plan. Objective Vitals and Measurements T: 36.8 C (Oral) TMIN: 36.6 C (Oral) TMAX: 37.4 C (Oral) HR: 99 RR: 16 BP: 103/65 SpO2: 95% Intake and Output 7AM Yesterday to 7AM Today Intake and Output (Last 24 hours) Intake Oral Intake 120.00 Supplement Intake 237.00 Output Urine Voided 200.00 Urine Count 1.00 Total Summary Total Intake 357.00 Total Output 200.00 Fluid Balance 157.00 Physical Exam Weight Dosing Weight: 78.2 kg (11/25/22) Dosing Weight: 78.8 kg (11/25/22) GENERAL: No acute distress. MOUTH: Moist membranes. NECK: Supple. CARDIOVASCULAR: S1 S2 heard, regular rate and rhythm, no murmurs. No JVD, no edema. Left AV fistula. RESPIRATORY: Clear to auscultation bilaterally. ABDOMEN: Soft, nontender, nondistended, no rebound or guarding, bowel sounds present in all 4 quadrants. INTEGUMENTARY: Perineal cellulitis shows improvement. NEUROLOGIC: Awake, alert and oriented x3, no focal neurologic deficits. PSYCHIATRIC: Anxious for hopeful discharge tomorrow. Medications Medications (16) Active Scheduled: (12) albumin human 25% (50 mL) vial 12.5 gram(s) 50 mL, IV Piggyback (MED), prep pharm albuterol - ipratropium 2.5 mg-0.5 mg/3 mL Inhal Irasema UD 3 mL, Inhalation, QIDRT allopurinol 100 mg tablet 100 mg 1 tab(s), Oral, qDayPC amiodarone 200 mg tablet 200 mg 1 tab(s), Oral, qDay cefTRIAXone IVP syringe 1 gram(s) 10 mL, IV Push (INT), qDay gabapentin 100 mg Capsule 200 mg 2 cap(s), Oral, qHS heparin 5,000 units/5mL DIALYSIS syringe 2,500 unit(s) 2.5 mL, IV Push, prep pharm heparin 5,000 units/mL (1 mL) vial 5,000 unit(s) 1 mL, Subcutaneous, q8h levothyroxine 50 mcg tablet 50 mcg 1 tab(s), Oral, qDayAC metronidazole PMX 500 mg 100 mL, IV Piggyback, q8h rosuvastatin 10 mg tablet 10 mg 1 tab(s), Oral, qHS sertraline 50 mg tablet 50 mg 1 tab(s), Oral, qDay Continuous: (0) PRN: (4) albuterol 0.083% Soln UD (2.5mg/3 mL) 2.5 mg 3 mL, Inhalation, q6hRT diphenhyDRAMINE 50 mg/mL (1 mL) INJ 12.5 mg 0.25 mL, IV Push, AsDirected epinephrine 1 mg/mL Solution AMP 0.3 mg 0.3 mL, Intramuscular, Once midodrine 5 mg tablet 10 mg 2 tab(s), Oral, Mon/Mon/Mon Lab Results 11/26 05:21 WBC: 9.5 Hgb: 9.2 L Hct: 27.6 L Platelet: 124 L Neutrophil %: 82.8 H Glucose Level: 98 Sodium Level: 137 Potassium Level: 4.6 BUN: 41.0 H Creatinine Lvl (s): 3.85 H 11/25 16:24 WBC: 10.9 H Hgb: 9.0 L Hct: 26.9 L Platelet: 105 L Neutrophil %: 85.7 H 11/25 09:15 Glucose Level: 92 Sodium Level: 135 L Potassium Level: 4.6 BUN: 53.0 H Creatinine Lvl (s): 4.54 H Imaging Results and Diagnostics No new imaging. EKG No new EKG. Assessment/Plan 1. Acute septic shock secondary to perineal cellulitis. Resolved. 2. Acute perineal cellulitis. Antibiotics have been de-escalated to ceftriaxone and metronidazole. Continue current antibiotics with hopeful transition to oral antibiotics at discharge tomorrow. 3. Chronic end-stage renal disease on hemodialysis. Hemodialysis as per nephrology. Continue allopurinol. 4. Chronic hypotension on midodrine therapy. Continue midodrine. 5. Chronic hypoxic respiratory failure on 3 L nasal cannula oxygen. Continue patient's home nasal cannula oxygen. 6. Chronic coronary artery disease status post CABG. No signs of ischemia. No ischemic evaluation planned at this time. 7. Chronic paroxysmal atrial fibrillation, not on anticoagulation due to history of bleeding from fistula. No new diagnostic or therapeutic intervention. Continue amiodarone. 8. Chronic acquired hypothyroidism. Continue thyroid supplementation. 9. Chronic hyperlipidemia. Continue statin therapy. 10. Chronic anxiety and depression. Continue sertraline. 11. DVT prophylaxis. Heparin subcutaneously. Digitally Signed by KATELIN MEZA DO on 11/26/2022 02:09 PM [facility] [id number] Nephrology Progress note Date of Service November 26 2022 Subjective Feels better. Close to baseline. Denies shortness of breath on 1 L nasal cannula. He wears 3 L at home. Appetite fair. No nausea. Energy improving. Objective Vitals and Measurements T: 36.8 C (Oral) TMIN: 36.6 C (Oral) TMAX: 37.4 C (Oral) HR: 99 RR: 16 BP: 103/65 SpO2: 95% Intake and Output 7AM Yesterday to 7AM Today Intake and Output (Last 24 hours) Intake Oral Intake 240.00 Supplement Intake 237.00 Output Urine Voided 200.00 Hemodialysis 622.00 Urine Count 1.00 Total Summary Total Intake 477.00 Total Output 822.00 Fluid Balance -345.00 Physical Exam General: No distress on 1 L nasal cannula HEENT: Mucosa was moist, sclera anicteric, extraocular muscles intact, neck veins were flat, no carotid bruits Lungs: Decreased breath sounds in bases. Crackles present Heart: Irregular with no murmurs rubs or gallops Abdomen: Positive bowel sounds, soft, no palpable masses Extremities: No edema, pulses 2+ in all 4 extremities Skin: No rashes, normal turgor Weight Dosing Weight: 78.2 kg (11/25/22) Dosing Weight: 78.8 kg (11/25/22) Medications Medications (15) Active Scheduled: (11) albumin human 25% (50 mL) vial 12.5 gram(s) 50 mL, IV Piggyback (MED), prep pharm albuterol - ipratropium 2.5 mg-0.5 mg/3 mL Inhal Irasema UD 3 mL, Inhalation, QIDRT allopurinol 100 mg tablet 100 mg 1 tab(s), Oral, qDayPC amiodarone 200 mg tablet 200 mg 1 tab(s), Oral, qDay cefTRIAXone IVP syringe 1 gram(s) 10 mL, IV Push (INT), qDay gabapentin 100 mg Capsule 200 mg 2 cap(s), Oral, qHS heparin 5,000 units/mL (1 mL) vial 5,000 unit(s) 1 mL, Subcutaneous, q8h levothyroxine 50 mcg tablet 50 mcg 1 tab(s), Oral, qDayAC metronidazole PMX 500 mg 100 mL, IV Piggyback, q8h rosuvastatin 10 mg tablet 10 mg 1 tab(s), Oral, qHS sertraline 50 mg tablet 50 mg 1 tab(s), Oral, qDay Continuous: (0) PRN: (4) albuterol 0.083% Soln UD (2.5mg/3 mL) 2.5 mg 3 mL, Inhalation, q6hRT diphenhyDRAMINE 50 mg/mL (1 mL) INJ 12.5 mg 0.25 mL, IV Push, AsDirected epinephrine 1 mg/mL Solution AMP 0.3 mg 0.3 mL, Intramuscular, Once midodrine 5 mg tablet 10 mg 2 tab(s), Oral, Mon/Mon/Mon Lab Results 11/26 05:21 WBC: 9.5 Hgb: 9.2 L Hct: 27.6 L Platelet: 124 L Neutrophil %: 82.8 H Glucose Level: 98 Sodium Level: 137 Potassium Level: 4.6 BUN: 41.0 H Creatinine Lvl (s): 3.85 H 11/25 16:24 WBC: 10.9 H Hgb: 9.0 L Hct: 26.9 L Platelet: 105 L Neutrophil %: 85.7 H 11/25 09:15 Glucose Level: 92 Sodium Level: 135 L Potassium Level: 4.6 BUN: 53.0 H Creatinine Lvl (s): 4.54 H EKG No qualifying data available. Assessment/Plan 1. End-stage renal disease: Dialysis yesterday tolerated. We will plan extra isolated ultrafiltration today for volume. He will then return to his normal dialysis spot on Monday. 2. Sepsis from perianal abscess: Currently on ceftriaxone. Blood pressure is stable. He is afebrile. 3. Fluid overload: Did not tolerate much fluid removal yesterday with dialysis due to hypotension. Plan for isolated ultrafiltration today. Digitally Signed by ROSANNA KEITA MD on 11/26/2022 12:38 PM [facility] [id number] Note Date of Service 11/25/22 Chief Complaint perianal cellulitis Subjective 77-year-old male with past medical history of end-stage renal disease on hemodialysis Monday, Monday, Monday, chronic hypoxic respiratory failure on 3 L home oxygen, coronary artery disease statuspost CABG, atrial fibrillation not on anticoagulation given prior history of bleeding from fistula site, hypothyroidism, gout, hyperlipidemia, history of large bowel cancer s/p abdominal surgery and anxiety/depression. Patient was transferred from [facility] to [facility] on 11/23/2022 with worsening right-sided perianal pain. Patient was found to have perianal cellulitis, he was started onbroad- spectrum antibiotics of cefepime and vancomycin. Patient was found to be in shock with hypotension, tachycardic tachycardia, leukocytosis and lactic acidosis. Patient did require pressor support and treatment and opens medical ICU. A CT of the abdomen pelvis was completed which showed no evidence of fluid collection in the perineal region/suggest an abscess. Mild pancreatic stranding was noted in the pancreatic tail. Bilateral small pleural effusions and mild interlobular septal thickening compatible with pulmonary edema was seen. Chest x-ray completed showed mild congestion/edema with small bilateral effusions. Nephrology was consulted who felt there was no urgent need for dialysis. The patient's blood pressure stabilized, he was transferred to [facility] on 11/25/2022. Patient seen today post dialysis treatment. was present bedside. Patient states his cellulitisto his perianal area is improving and is less painful today. Patient denied additional complaints, no chest pain, shortness of breath, abdominal pain, nausea or vomiting. He is eating and drinking without issues. Patient states he wears 3 L of oxygen chronically at home. He also mentions he takes midodrine prior to dialysis and during dialysis. Objective Vitals and Measurements T: 36.6 C (Oral) TMIN: 36.4 C (Skin) TMAX: 36.8 C (Oral) HR: 89 RR: 18 BP: 92/50 SpO2: 96% WT: 78.2 kg Intake and Output 7AM Yesterday to 7AM Today Intake and Output (Last 24 hours) Intake Oral Intake 600.00 Supplement Intake 237.00 Output Urine Voided 0.00 Hemodialysis 622.00 Stool Count 0.00 Total Summary Total Intake 837.00 Total Output 622.00 Fluid Balance 215.00 Physical Exam Physical Exam General: No acute distress. Alert and Appropriate Skin: No rash. Warm, Dry, perianal area with purple erythema, hardened/indurated area HEENT: Head is normocephalic and atraumatic. No lesions. Pupils equal in size. Extraocular movements within normal limits. Nose: No septal deviation. Mouth: Oropharynx mucosa is without lesion. Neck: Supple. No lymphadenopathy, thyromegaly noted. Lungs: Bilaterally clear/diminished breath sounds with no crepitation or wheeze. Unlabored on 3L Cardiovascular: Heart is regular rhythm, S1S2, No extra-audible heart tones Abdomen: Abdomen is soft, nontender. Bowel sounds positive all four quadrants. Extremities: No clubbing, cyanosis or edema. Peripheral and distal pulses palpable. No calf tenderness. Adequate peripheral circulation. Neurological: The patient is awake, oriented to time, people and place. Following simple commands, moving all extremities. Weight Dosing Weight: 78.2 kg (11/25/22) Dosing Weight: 78.8 kg (11/25/22) Medications Medications (14) Active Scheduled: (10) albuterol - ipratropium 2.5 mg-0.5 mg/3 mL Inhal Irasema UD 3 mL, Inhalation, QIDRT allopurinol 100 mg tablet 100 mg 1 tab(s), Oral, qDayPC amiodarone 200 mg tablet 200 mg 1 tab(s), Oral, qDay cefTRIAXone IVP syringe 1 gram(s) 10 mL, IV Push (INT), qDay gabapentin 100 mg Capsule 200 mg 2 cap(s), Oral, qHS heparin 5,000 units/mL (1 mL) vial 5,000 unit(s) 1 mL, Subcutaneous, q8h levothyroxine 50 mcg tablet 50 mcg 1 tab(s), Oral, qDayAC metronidazole PMX 500 mg 100 mL, IV Piggyback, q8h rosuvastatin 10 mg tablet 10 mg 1 tab(s), Oral, qHS sertraline 50 mg tablet 50 mg 1 tab(s), Oral, qDay Continuous: (0) PRN: (4) albuterol 0.083% Soln UD (2.5mg/3 mL) 2.5 mg 3 mL, Inhalation, q6hRT diphenhyDRAMINE 50 mg/mL (1 mL) INJ 12.5 mg 0.25 mL, IV Push, AsDirected epinephrine 1 mg/mL Solution AMP 0.3 mg 0.3 mL, Intramuscular, Once midodrine 5 mg tablet 10 mg 2 tab(s), Oral, Mon/Wed/Fri Lab Results 11/25 09:15 Glucose Level: 92 Sodium Level: 135 L Potassium Level: 4.6 BUN: 53.0 H Creatinine Lvl (s): 4.54 H 09/14 04:07 WBC: 22.2 H Hgb: 9.8 L Hct: 30.0 L Platelet: 165 Glucose Level: 97 Sodium Level: 135 L Potassium Level: 4.8 BUN: 27.0 H Creatinine Lvl (s): 3.12 H EKG No qualifying data available. Assessment/Plan 1. Septic shock 2. Perianal cellulitis 3. Leukocytosis 4. Lactic acidosis 5. ESRD on HD 6. Chronic hypoxic respiratory failure on 3L 7. Atrial fibrillation not on AC 8. CAD s/p CABG 9. Hypothyroidism 10. Other history of HLD, gout, history of large bowel cancer s/p abdominal surgery and anxiety/depression Plan BP better stabilized, will continue home midodrine dose with dialysis. Coreg on hold. Perianal appears to be improving. Erythema is receding from point of demarcation. Area does feel hard and indurated. Will change antibiotics to Ceftriaxone and Flagyl today given improvement. Stop Cefepime. Vancomycin was stopped, MRSA was negative. CBC was pending from this morning. Lactic acidosis resolved. Nephrology following for dialysis, s/p treatment 11/25 O2 stable on 3L patient chronically wears Home medications were resumed sq heparin was started for DVT prophylaxis Plan discussed with patient and Case d/w Dr. Meza Total time spent reviewing labs, diagnostics, evaluating the patient, and medical decision makin minutes Digitally Signed by JOHNNY VALENCIA on 11/25/2022 03:01 PM [id number] Note Date of Service 11/25/22 Chief Complaint perianal cellulitis Subjective 77-year-old male with past medical history of end-stage renal disease on hemodialysis Monday, Monday, Monday, chronic hypoxic respiratory failure on 3 L home oxygen, coronary artery disease statuspost CABG, atrial fibrillation not on anticoagulation given prior history of bleeding from fistula site, hypothyroidism, gout, hyperlipidemia, history of large bowel cancer s/p abdominal surgery and anxiety/depression. Patient was transferred from [facility] to [facility] on 11/23/2022 with worsening right-sided perianal pain. Patient was found to have perianal cellulitis, he was started onbroad- spectrum antibiotics of cefepime and vancomycin. Patient was found to be in shock with hypotension, tachycardic tachycardia, leukocytosis and lactic acidosis. Patient did require pressor support and treatment and opens medical ICU. A CT of the abdomen pelvis was completed which showed no evidence of fluid collection in the perineal region/suggest an abscess. Mild pancreatic stranding was noted in the pancreatic tail. Bilateral small pleural effusions and mild interlobular septal thickening compatible with pulmonary edema was seen. Chest x-ray completed showed mild congestion/edema with small bilateral effusions. Nephrology was consulted who felt there was no urgent need for dialysis. The patient's blood pressure stabilized, he was transferred to [facility] on 11/25/2022. Patient seen today post dialysis treatment. was present bedside. Patient states his cellulitisto his perianal area is improving and is less painful today. Patient denied additional complaints, no chest pain, shortness of breath, abdominal pain, nausea or vomiting. He is eating and drinking without issues. Patient states he wears 3 L of oxygen chronically at home. He also mentions he takes midodrine prior to dialysis and during dialysis. Objective Vitals and Measurements T: 36.6 C (Oral) TMIN: 36.4 C (Skin) TMAX: 36.8 C (Oral) HR: 89 RR: 18 BP: 92/50 SpO2: 96% WT: 78.2kg Intake and Output 7AM Yesterday to 7AM Today Intake and Output (Last 24 hours) Intake Oral Intake 600.00 Supplement Intake 237.00 Output Urine Voided 0.00 Hemodialysis 622.00 Stool Count 0.00 Total Summary Total Intake 837.00 Total Output 622.00 Fluid Balance 215.00 Physical Exam Physical Exam General: No acute distress. Alert and Appropriate Skin: No rash. Warm, Dry, perianal area with purple erythema, hardened/indurated area HEENT: Head is normocephalic and atraumatic. No lesions. Pupils equal in size. Extraocular movements within normal limits. Nose: No septal deviation. Mouth: Oropharynx mucosa is without lesion. Neck: Supple. No lymphadenopathy, thyromegaly noted. Lungs: Bilaterally clear/diminished breath sounds with no crepitation or wheeze. Unlabored on 3L Cardiovascular: Heart is regular rhythm, S1S2, No extra-audible heart tones Abdomen: Abdomen is soft, nontender. Bowel sounds positive all four quadrants. Extremities: No clubbing, cyanosis or edema. Peripheral and distal pulses palpable. No calf tenderness. Adequate peripheral circulation. Neurological: The patient is awake, oriented to time, people and place. Following simple commands, moving all extremities. Weight Dosing Weight: 78.2 kg (11/25/22) Dosing Weight: 78.8 kg (11/25/22) Medications Medications (14) Active Scheduled: (10) albuterol - ipratropium 2.5 mg-0.5 mg/3 mL Inhal Irasema UD 3 mL, Inhalation, QIDRT allopurinol 100 mg tablet 100 mg 1 tab(s), Oral, qDayPC amiodarone 200 mg tablet 200 mg 1 tab(s), Oral, qDay cefTRIAXone IVP syringe 1 gram(s) 10 mL, IV Push (INT), qDay gabapentin 100 mg Capsule 200 mg 2 cap(s), Oral, qHS heparin 5,000 units/mL (1 mL) vial 5,000 unit(s) 1 mL, Subcutaneous, q8h levothyroxine 50 mcg tablet 50 mcg 1 tab(s), Oral, qDayAC metronidazole PMX 500 mg 100 mL, IV Piggyback, q8h rosuvastatin 10 mg tablet 10 mg 1 tab(s), Oral, qHS sertraline 50 mg tablet 50 mg 1 tab(s), Oral, qDay Continuous: (0) PRN: (4) albuterol 0.083% Soln UD (2.5mg/3 mL) 2.5 mg 3 mL, Inhalation, q6hRT diphenhyDRAMINE 50 mg/mL (1 mL) INJ 12.5 mg 0.25 mL, IV Push, AsDirected epinephrine 1 mg/mL Solution AMP 0.3 mg 0.3 mL, Intramuscular, Once midodrine 5 mg tablet 10 mg 2 tab(s), Oral, Mon/Mon/Fri Lab Results 11/25 09:15 Glucose Level: 92 Sodium Level: 135 L Potassium Level: 4.6 BUN: 53.0 H Creatinine Lvl (s): 4.54 H 11/24 04:07 WBC: 22.2 H Hgb: 9.8 L Hct: 30.0 L Platelet: 165 Glucose Level: 97 Sodium Level: 135 L Potassium Level: 4.8 BUN: 27.0 H Creatinine Lvl (s): 3.12 H EKG No qualifying data available. Assessment/Plan 1. Septic shock 2. Perianal cellulitis 3. Leukocytosis 4. Lactic acidosis 5. ESRD on HD 6. Chronic hypoxic respiratory failure on 3L 7. Atrial fibrillation not on AC 8. CAD s/p CABG 9. Hypothyroidism 10. Other history of HLD, gout, history of large bowel cancer s/p abdominal surgery and anxiety/depression Plan BP better stabilized, will continue home midodrine dose with dialysis. Coreg on hold. Perianal appears to be improving. Erythema is receding from point of demarcation. Area does feel hard and indurated. Will change antibiotics to Ceftriaxone and Flagyl today given improvement. Stop Cefepime. Vancomycin was stopped, MRSA was negative. CBC was pending from this morning. Lactic acidosis resolved. Nephrology following for dialysis, s/p treatment 11/25 O2 stable on 3L patient chronically wears Home medications were resumed sq heparin was started for DVT prophylaxis Plan discussed with patient and Case d/w Dr. Meza Total time spent reviewing labs, diagnostics, evaluating the patient, and medical decision makin minutes Digitally Signed by JOHNNY VALENCIA on 11/25/2022 03:01 PM [facility] [id number] Nephrology Progress note Date of Service 11-25 Subjective resting Objective Vitals and Measurements T: 36.4 C (Skin) TMIN: 36.4 C (Skin) TMAX: 36.8 C (Oral) HR: 93(Monitored) RR: 18 BP: 100/50 BP: 96/72(Sitting) BP: 106/59(Standing) BP: 100/74(Supine) SpO2: 99% WT: 78.8 kg Intake and Output 7AM Yesterday to 7AM Today Intake and Output (Last 24 hours) Intake Oral Intake 480.00 Supplement Intake 237.00 Output Urine Voided 0.00 Stool Count 0.00 Total Summary Total Intake 717.00 Total Output 0.00 Fluid Balance 717.00 Physical Exam General: Alert, awake and oriented x 3 HEENT: Icterus-; Pallor + Neck: No swelling. JVD normal. Chest: Chest equal in expansion, and clear to auscultation bilaterally. Heart: s1s2 heard. regular. No murmur/rub appreciated. Abdomen: Soft. Nondistended. Nontender. Bowel sounds heard. Neuro: asterexis-; sensation b/l intact. Skin: rash-; ecchymosis - Musculoskeletal: joint effusion -; cyanosis-; lower extremitity edema: - Genitourinary/rectal: FMS: - manriquez:- Breast: deferred Access: avf left+ Weight Dosing Weight: 78.8 kg (11/25/22) Dosing Weight: 77.3 kg (11/24/22) Medications Medications (14) Active Scheduled: (10) albumin human 25% (50 mL) vial 12.5 gram(s) 50 mL, IV Piggyback (MED), prep pharm albuterol - ipratropium 2.5 mg-0.5 mg/3 mL Inhal Irasema UD 3 mL, Inhalation, QIDRT allopurinol 100 mg tablet 100 mg 1 tab(s), Oral, qDayPC amiodarone 200 mg tablet 200 mg 1 tab(s), Oral, qDay cefepime 1 gram(s), IV Piggyback, q24h gabapentin 100 mg Capsule 200 mg 2 cap(s), Oral, qHS heparin 5,000 units/mL (1 mL) vial 5,000 unit(s) 1 mL, Subcutaneous, q8h levothyroxine 50 mcg tablet 50 mcg 1 tab(s), Oral, qDayAC rosuvastatin 10 mg tablet 10 mg 1 tab(s), Oral, qHS sertraline 50 mg tablet 50 mg 1 tab(s), Oral, qDay Continuous: (0) PRN: (4) albuterol 0.083% Soln UD (2.5mg/3 mL) 2.5 mg 3 mL, Inhalation, q6hRT diphenhyDRAMINE 50 mg/mL (1 mL) INJ 12.5 mg 0.25 mL, IV Push, AsDirected epinephrine 1 mg/mL Solution AMP 0.3 mg 0.3 mL, Intramuscular, Once midodrine 5 mg tablet 10 mg 2 tab(s), Oral, Mon/Mon/Fri Lab Results 11/24 04:07 WBC: 22.2 H Hgb: 9.8 L Hct: 30.0 L Platelet: 165 Glucose Level: 97 Sodium Level: 135 L Potassium Level: 4.8 BUN: 27.0 H Creatinine Lvl (s): 3.12 H 11/24 01:30 Glucose Level: 104 Sodium Level: 134 L Potassium Level: 4.5 BUN: 25.0 H Creatinine Lvl (s): 3.13 H EKG EKG - Completed -- 11/24/22 1:51:00 EDT Assessment/Plan Orders: albumin human, Start: 11/25/22 9:00:00 EDT, Dose = 12.5 gram(s), = 50 mL, IV Piggyback (MED), prep pharm, 2 dose(s), Give if SBP (mmHg) < 90, DURING- TREATMENT , 0, 11/25/22 8:43:00 EDT Dialysis Machine Bicarb Setting Dialysis Machine Sodium Setting Dialysis Machine Temperature Setting Discontinue Order Hepatitis B Surface Antigen Comments: WILL COLLECT IN DIALYSIS Standard Hemodialysis Time Spent 1. esrd mwf 2. sepsis 3. anemia plan Plan for dialysis today. Ultrafiltration cautiously given his recent sepsis environment. We need additional ultrafiltration tomorrow depending his volume and pulmonary status. Dose medication GFR less than 10. We will give EPO on dialysis today. [1] Consult Note; ASHLEY MARLEY MD 11/24/2022 10:21 EDT Digitally Signed by ASHLEY MARLEY MD on 11/25/2022 10:45 AM [facility] [id number] Respiratory therapy Hospital Progress note Respiratory Therapy Evaluation Entered On: 11/24/2022 20:34 EDT Performed On: 11/24/2022 20:33 EDT by Avi Valencia RT Respiratory Therapy Evaluation Pulmonary Status : Pulmonary disorder Surgical Status : No surgeries Chest X-Ray : Infiltrates, atelectasis, pleural effusion Breath Sounds (RT) : Decreased bilaterally Respiratory Pattern (RT) : Regular RR=12-20 Cough (RT) : Strong, non-productive Respiratory Therapy Evaluation Score : 8 Level of Activity : Ambulatory with assistance Mental Status : Alert, oriented RT Assessment [Frequency/Schedule] : Triage score of 8. Freq: TIDRT & Albuterol Q2hRT prn Avi Valencia RT - 11/24/2022 20:33 EDT Digitally Signed by Avi Valencia on 11/24/2022 08:33 PM [facility] [id number] History and physical note Date of Service 11/24/2022 Chief Complaint Weakness, fatigue, vomiting History of Present Illness This is a 77-year-old gentleman with history of ESRD on HD [M/W/F], CAD s/p CABG, Paroxysmal A.fib on Amiodarone, not on anticoagulation due to recurrent bleeding from dialysis site. He presents from [facility] for worsening right perianal pain associated with swelling and rednessgoing on for the past couple of weeks. He denied any wounds in the area but reported worsening nausea, lightheadedness, fatigue as well. He denied any cough, fevers, chills. he reports no urinary symptoms as he does not make urine. His stools have been regular, his appetite reduced. He is compliant with his medications and regularly attends in sessions for dialysis. He reported no cough, loss of consciousness. On arrival to [facility] he was hypotensive, tachycardic, in atrial fibrillation. He was given gentle IV fluids and broad-spectrum antibiotics. CT scan of the abdomen did not show any abscess/fluid collection. Chest x-ray showed no acute abnormality. He was started on peripheral norepinephrine andbe transferred to [facility] medical intensive care unit for evaluation of shock, likely distributive. Review of Systems Negative except those mentioned in HPI Physical Exam Vitals and Measurements T: 36.8 C (Oral) HR: 83(Monitored) RR: 16 BP: 98/50 SpO2: 99% HT: 170 cm WT: 77.3 kg BMI: 26.75 Weight Dosing Weight: 77.3 kg (11/24/22) General Appearance: Appears to be stable and in no acute distress. Oriented x3 Head: Atraumatic and normocephalic EENT: EOMI, no conjunctival injection. sclera anicteric. Neck: No thyromegaly, no cervical lymphadenopathy Abdominal: Soft,nontender, Bowel sounds present x4 quadrants. Perianal fluctuance on the right side, red, tender, warm. No drainage. Cardiac: S1 and S2 normal. RRR. No murmurs, rubs, or gallops. Lungs: CTABL. No increased work for breathing. Extremities: No lower extremity pitting edema. 2+ radial and pedal pulses bilaterally. Left forearmfistula with thrill/bruit. Neurological: CN II through XII grossly intact. Psych: Mood stable Lab Results No 36 Hour Lab Data Imaging Results and Diagnostics XR Chest 1 View Result Date: November 24, 2022 Verified By: JL CRUM MD CLINICAL STATEMENT: IMPRESSION: Findings suggestive of mild congestion/edema. Small bilateral effusions.Developing infectious or inflammatory process not excluded. Assessment/Plan #Distributive shock, likely sepsis #Perineal cellulitis #ESRD on HD Monday #History of atrial fibrillation on amiodarone [No DOAC 2/2 bleed] #History of CAD s/p CABG #DVT prophylaxis #DNRCCA-Ok to Intubate Plan: Broad-spectrum antibiotics with vancomycin, cefepime. Given allergy, as needed epinephrine/Benadryl. Tolerated first dose well. Supportive measures with vasopressors. Currently on norepinephrine. We will hold antihypertensives. Blood cultures and targeted antibiotic therapy CT scan of the abdomen to be done to assess for fluid collection/abscess Check chest x-ray to assess for pneumonia/fluid overload Does not make urine, will defer urine culture. Bedside ultrasound revealed collapsing IVC. 500 cc bolus given. We will recheck and reassess Maintenance fluids at 75 cc/h. Consult to nephrology for scheduled dialysis. No emergent need at this time. Appreciate recommendations. DVT prophylaxis: Heparin subcutaneous DNR CCA okay to intubate CODE STATUS Plan of care discussed with Dr. Champion. Problem List/Past Medical History Ongoing No qualifying data Historical No qualifying data Procedure/Surgical History No qualifying data available. Medications Home Medications (14) Active albuterol 2.5 mg/3 mL (0.083%) inhalation solution 2.5 mg = 3 mL, PRN, Inhalation, q6h allopurinol 100 mg oral tablet 100 mg = 1 tab(s), Oral, qDayPC amiodarone 100 mg oral tablet 200 mg = 2 tab(s), Oral, qDay Bevespi Aerosphere 9 mcg-4.8 mcg/inh inhalation aerosol 2 puff(s), Inhalation, BID Coreg 3.125 mg oral tablet 3.125 mg = 1 tab(s), Oral, Sun///Sat fluticasone 50 mcg/inh NASAL spray 2 spray(s), Nostril, each, qAM gabapentin 100 mg oral capsule 200 mg = 2 cap(s), Oral, qHS levothyroxine 25 mcg (0.025 mg) oral tablet 50 mcg = 2 tab(s), Oral, qDayAC midodrine 10 mg oral tablet 10 mg = 1 tab(s), Oral, Mon/Mon/Mon nitroglycerin 0.4 mg sublingual tablet 0.4 mg = 1 tab(s), PRN, Sublingual, q5min Tawanna-Laura oral tablet 1 tab(s), Oral, Daily rosuvastatin 10 mg oral tablet 10 mg = 1 tab(s), Oral, qHS sertraline 50 mg oral tablet 50 mg = 1 tab(s), Oral, qDay Vitamin C 500 mg oral tablet 500 mg = 1 tab(s), Oral, qDay Allergies Aspirin Enteric Coated amLODIPine indomethacin penicillin (Prednisone) predniSONE rOPINIRole traZODone Social History No social history on file Family History No family history on file Immunizations No qualifying data available. Code Status Code Status - Ordered -- 11/24/22 0:49:00 EDT, DNRCC-Arrest Intubate & Mechanical Vent, Constant Order Digitally Signed by CONRADO PEREZ MD on 11/24/2022 07:02 AM [facility] [id number] Evaluation + Plan noteExtracted from: Title:History and Physical Author:CONRADO PEREZ MD Date:11/24/22 #Distributive shock, likely sepsis #Perineal cellulitis #ESRD on HD Monday #History of atrial fibrillation on amiodarone [No DOAC 2/2 bleed] #History of CAD s/p CABG #DVT prophylaxis #DNRCCA-Ok to Intubate Plan: Broad-spectrum antibiotics with vancomycin, cefepime. Given allergy, as needed epinephrine/Benadryl. Tolerated first dose well. Supportive measures with vasopressors. Currently on norepinephrine. We will hold antihypertensives. Blood cultures and targeted antibiotic therapy CT scan of the abdomen to be done to assess for fluid collection/abscess Check chest x-ray to assess for pneumonia/fluid overload Does not make urine, will defer urine culture. Bedside ultrasound revealed collapsing IVC. 500 cc bolus given. We will recheck and reassess Maintenance fluids at 75 cc/h. Consult to nephrology for scheduled dialysis. No emergent need at this time. Appreciate recommendations. DVT prophylaxis: Heparin subcutaneous DNR CCA okay to intubate CODE STATUS Plan of care discussed with Dr. Champion. Addendum by ANJALI LOPEZ MD on November 24, 2022 17:22:52 EDT Patient was seen and examined and discussed with housestaff History and physical was reviewed History present illness, past medical history, social history, medications, and review of systems all obtained. Physical examination performed This patient is 77 years old. He presented to the emergency room at [facility] in [place] with perianal pain and fatigue. Apparently, he was also noted to have altered mental status. This is after he underwent dialysis for his chronic end-stage kidney disease. He was found to have perianal redness, however, CT scan of the abdomen showed no abscess formation. He was found to be slightly hypotensive and was given IV fluids and started on norepinephrine and transferred to [facility]. Repeat CAT scan of the abdomen again shows no evidence of abscess formation. He has since been off norepinephrine and doing better. He has a past medical history of end-stage kidney disease on hemodialysis 3 times a week as well as history of CABG and atrial fibrillation but is not on anticoagulation. 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 Apparently multiple lymph nodes removed that were negative for malignancy. He has not had any chemotherapy following that. On exam he is awake and alert and in no acute distress and his lungs are clear and his heart is regular and mental status is normal. Examination of the anal area reveals an area of induration and erythema and tenderness consistent with cellulitis in the lower right buttock abutting the anal area. No fluctuation. Imaging was reviewed. Chest x-ray is clear. Impression: 1. Perianal cellulitis. No definite features for necrotizing fasciitis 2. Septic/hypovolemic shock has resolved 3. History of end-stage kidney disease on hemodialysis 4. History of coronary artery disease and CABG. Atrial fibrillation 5. History of abdominal surgery for a large bowel cancer. No need for chemotherapy. Plan: 1. Monitored overnight in the intensive care unit. 2. Continue antibiotics with vancomycin and cefepime pending cultures 3. May advance diet 4. May start on home medications 5. If patient remains stable this afternoon, may be able to be transferred to the floor. 6. Low threshold to surgical consultation if cellulitis worsens Anjali Lopez MD [facility] Diagnostic Tests Pending * Urinalysis 11/24/22 [facility] 09-14-2023 Nephrology Consult note Date of Service 11-24 Reason for Consultation esrd History of Present Illness Patient known to my service on dialysis Monday. Had dialysis yesterday went to theER for shortness of breath and generalized weakness noted to be in septic shock. At this point patient is being managed with empiric antibiotics as well as pressor support. He seems to have a sore inan ulceration around the perianal area. Pancultures are being done. He dialyzed using left forearm AV fistula no recent acute events with that. He recently been managed for colon cancer status postsurgical intervention. Improving from that aspect with improved overall appetite and nutritional status although overall poor relatively improving. Currently is awake and alert. Able to tell me much ofhis history. No profound shortness of breath he is on supplemental oxygen at baseline. Review of Systems 10 point review of systems was done. negative other than mentioned above. Physical Exam Vitals and Measurements T: 36.8 C (Oral) HR: 86(Monitored) RR: 14 BP: 97/61 SpO2: 100% HT: 170 cm WT: 77.3 kg BMI: 26.75 Weight Dosing Weight: 77.3 kg (11/24/22) General: Alert, awake and oriented x 3 HEENT: Icterus-; Pallor + Neck: No swelling. JVD normal. Chest: Chest equal in expansion, and clear to auscultation bilaterally. Heart: s1s2 heard. regular. No murmur/rub appreciated. Abdomen: Soft. Nondistended. Nontender. Bowel sounds heard. Neuro: asterexis-; sensation b/l intact. Skin: rash-; ecchymosis - Musculoskeletal: joint effusion -; cyanosis-; lower extremitity edema: - Genitourinary/rectal: FMS: - manriquez:- Breast: deferred Access: avf left+ Lab Results 11/24 04:07 WBC: 22.2 H Hgb: 9.8 L Hct: 30.0 L Platelet: 165 Glucose Level: 97 Sodium Level: 135 L Potassium Level: 4.8 BUN: 27.0 H Creatinine Lvl (s): 3.12 H 11/24 01:30 Glucose Level: 104 Sodium Level: 134 L Potassium Level: 4.5 BUN: 25.0 H Creatinine Lvl (s): 3.13 H Assessment/Plan 1. esrd mwf 2. sepsis 3. anemia plan At this point no urgent plan for dialysis. We will plan for the same tomorrow. While he management will be slightly tenuous given his septic and distributive environment. Dose medication GFR less than 10. A.m. labs. Thank you very much Makey This document was composed using voice recognition software, therefore, typographical errors may exist. Problem List/Past Medical History Ongoing No qualifying data Historical No qualifying data Procedure/Surgical History No qualifying data available. Medications Inpatient amiodarone, 200 mg= 1 tab(s), Oral, qDay Benadryl, 12.5 mg= 0.25 mL, IV Push, AsDirected, PRN EPINEPHrine 1 mg/mL injectable solution, 0.3 mg= 0.3 mL, Intramuscular, Once, PRN gabapentin, 200 mg= 2 cap(s), Oral, qHS levothyroxine, 50 mcg= 1 tab(s), Oral, qDayAC LR 1,000 mL, 1000 mL, Intravenous Maxipime Norepinephrine for IV 8 mg [5 mcg/min] + NS PMX titrate 250 mL Pepcid, 20 mg= 1 tab(s), Oral, q48h Pharmacy Consult, 1 EA, Miscellaneous, Daily sertraline, 50 mg= 1 tab(s), Oral, qDay VANCOMYCIN -- pharmacy re-dosing by random level, 1 EA, Miscellaneous, Daily Home albuterol 2.5 mg/3 mL (0.083%) inhalation solution, 2.5 mg= 3 mL, Inhalation, q6h, PRN allopurinol 100 mg oral tablet, 100 mg= 1 tab(s), Oral, qDayPC amiodarone 100 mg oral tablet, 200 mg= 2 tab(s), Oral, qDay Bevespi Aerosphere 9 mcg-4.8 mcg/inh inhalation aerosol, 2 puff(s), Inhalation, BID Coreg 3.125 mg oral tablet, 3.125 mg= 1 tab(s), Oral, Sun/Tues/Thurs/Sat fluticasone 50 mcg/inh NASAL spray, 2 spray(s), Nostril, each, qAM gabapentin 100 mg oral capsule, 200 mg= 2 cap(s), Oral, qHS levothyroxine 25 mcg (0.025 mg) oral tablet, 50 mcg= 2 tab(s), Oral, qDayAC midodrine 10 mg oral tablet, 10 mg= 1 tab(s), Oral, Mon/Mon/Fri nitroglycerin 0.4 mg sublingual tablet, 0.4 mg= 1 tab(s), Sublingual, q5min, PRN Tawanna-Laura oral tablet, 1 tab(s), Oral, Daily rosuvastatin 10 mg oral tablet, 10 mg= 1 tab(s), Oral, qHS sertraline 50 mg oral tablet, 50 mg= 1 tab(s), Oral, qDay Vitamin C 500 mg oral tablet, 500 mg= 1 tab(s), Oral, qDay Allergies Aspirin Enteric Coated amLODIPine indomethacin penicillin (Prednisone) predniSONE rOPINIRole traZODone Immunizations No qualifying data available. Digitally Signed by ASHLEY MARLEY MD on 11/24/2022 10:24 AM [id number] Note ORIGINAL EXAMINATION: CT OF THE ABDOMEN AND PELVIS WITHOUT CONTRAST 11/24/2022 6:31 am TECHNIQUE: CT of the abdomen and pelvis was performed without the administration of intravenous contrast. Multiplanar reformatted images are provided for review. Automated exposure control, iterative reconstruction, and/or weight based adjustment of the mA/kV was utilized to reduce the radiation dose to as low as reasonably achievable. COMPARISON: None. HISTORY: ORDERING SYSTEM PROVIDED HISTORY: Reason for Exam: r/o perineal abscess, pt denies pain, limited hx per pt and chart concern for perineal abscess FINDINGS: There are bilateral small pleural effusions. Mild interlobular septal thickening is noted in the bilateral lower lobes. The heart is enlarged. The liver, gallbladder, spleen, adrenal glands, and bilateral kidneys are within normal limits. The bladder is unremarkable. The prostate gland demonstrates dystrophic calcifications. Small volume free fluid in the pelvis, nonspecific. Question mild peripancreatic stranding at the pancreatic tail. The small and large bowel loops are normal in caliber. Mild diverticulosis without acute diverticulitis. Right hemicolectomy changes are noted. No free air. No fluid collection in the perineal region to suggest an abscess. No evidence of a fluid collection in the ischiorectal fossa or the gluteal soft tissues. Soft tissue thickening along the anterior abdominal wall likely related to prior surgery. A left thigh intramuscular lipoma is noted. Mild anasarca. Extensive atherosclerosis of the aorta. Significant ostial stenosis at celiac axis. No lymphadenopathy. Severe degenerative changes of the thoracolumbar spine. L5 pars defects. IMPRESSION: No evidence of a fluid collection in the perineal region to suggest an abscess. Question mild pancreatic stranding in the region of the pancreatic tail. Correlate with lab values to exclude acute pancreatitis. Bilateral small pleural effusions and mild interlobular septal thickening compatible with pulmonary edema. Trace nonspecific free fluid in the pelvis. I have personally reviewed the images of this examination and agree with the resident's findings and interpretation. Interpreted by: Jl Crum MD Preliminary Report By: Frankiepat Debbi Electronically signed By Jl Crum MD Dictated Date: 11/24/2022 6:54:01 AM Prelim Date: 11/24/2022 7:06:40 AM Sign Date: 11/24/2022 7:33:13 AM Ordering Provider: [facility]09-14-2023 Note ORIGINAL EXAMINATION: ONE XRAY VIEW OF THE CHEST 11/24/2022 6:08 am COMPARISON: None. HISTORY: ORDERING SYSTEM PROVIDED HISTORY: Reason for Exam: shortness of breath, sepsis FINDINGS: Heart is mildly enlarged. Sternotomy wires are present the chest wall. Central vascular prominence is noted bilaterally with suspected congestion/edema. Small bilateral effusions. Hazy airspace disease at the lung bases. IMPRESSION: Findings suggestive of mild congestion/edema. Small bilateral effusions. Developing infectious or inflammatory process not excluded. Interpreted by: Jl Crum MD Preliminary Report By: Jl Crum MD Electronically signed By Jl Crum MD Dictated Date: 11/24/2022 6:35:29 AM Prelim Date: 11/24/2022 6:36:00 AM Sign Date: 11/24/2022 6:36:00 AM Ordering Provider: [facility]09-14-2023 NoteAtrial fibrillation Nonspecific IVCD with LAD Inferior infarct, old Electronic Signature: TIP LUCIO MD 11/24/2022 12:14:16[facility] 09-14-[facility]23 History and physical note Date of Service 11/24/2022 Chief Complaint Weakness, fatigue, vomiting History of Present Illness This is a 77-year-old gentleman with history of ESRD on HD [M/W/F], CAD s/p CABG, Paroxysmal A.fib on Amiodarone, not on anticoagulation due to recurrent bleeding from dialysis site. He presents from [facility] for worsening right perianal pain associated with swelling and rednessgoing on for the past couple of weeks. He denied any wounds in the area but reported worsening nausea, lightheadedness, fatigue as well. He denied any cough, fevers, chills. he reports no urinary symptoms as he does not make urine. His stools have been regular, his appetite reduced. He is compliant with his medications and regularly attends in sessions for dialysis. He reported no cough, loss of consciousness. On arrival to [facility] he was hypotensive, tachycardic, in atrial fibrillation. He was given gentle IV fluids and broad-spectrum antibiotics. CT scan of the abdomen did not show any abscess/fluid collection. Chest x-ray showed no acute abnormality. He was started on peripheral norepinephrine andbe transferred to [facility] medical intensive care unit for evaluation of shock, likely distributive. Review of Systems Negative except those mentioned in HPI Physical Exam Vitals and Measurements T: 36.8 C (Oral) HR: 83(Monitored) RR: 16 BP: 98/50 SpO2: 99% HT: 170 cm WT: 77.3 kg BMI: 26.75 Weight Dosing Weight: 77.3 kg (11/24/22) General Appearance: Appears to be stable and in no acute distress. Oriented x3 Head: Atraumatic and normocephalic EENT: EOMI, no conjunctival injection. sclera anicteric. Neck: No thyromegaly, no cervical lymphadenopathy Abdominal: Soft,nontender, Bowel sounds present x4 quadrants. Perianal fluctuance on the right side, red, tender, warm. No drainage. Cardiac: S1 and S2 normal. RRR. No murmurs, rubs, or gallops. Lungs: CTABL. No increased work for breathing. Extremities: No lower extremity pitting edema. 2+ radial and pedal pulses bilaterally. Left forearmfistula with thrill/bruit. Neurological: CN II through XII grossly intact. Psych: Mood stable Lab Results No 36 Hour Lab Data Imaging Results and Diagnostics XR Chest 1 View Result Date: November 24, 2022 Verified By: JL CRUM MD CLINICAL STATEMENT: IMPRESSION: Findings suggestive of mild congestion/edema. Small bilateral effusions.Developing infectious or inflammatory process not excluded. Assessment/Plan #Distributive shock, likely sepsis #Perineal cellulitis #ESRD on HD Monday #History of atrial fibrillation on amiodarone [No DOAC 2/2 bleed] #History of CAD s/p CABG #DVT prophylaxis #DNRCCA-Ok to Intubate Plan: Broad-spectrum antibiotics with vancomycin, cefepime. Given allergy, as needed epinephrine/Benadryl. Tolerated first dose well. Supportive measures with vasopressors. Currently on norepinephrine. We will hold antihypertensives. Blood cultures and targeted antibiotic therapy CT scan of the abdomen to be done to assess for fluid collection/abscess Check chest x-ray to assess for pneumonia/fluid overload Does not make urine, will defer urine culture. Bedside ultrasound revealed collapsing IVC. 500 cc bolus given. We will recheck and reassess Maintenance fluids at 75 cc/h. Consult to nephrology for scheduled dialysis. No emergent need at this time. Appreciate recommendations. DVT prophylaxis: Heparin subcutaneous DNR CCA okay to intubate CODE STATUS Plan of care discussed with Dr. Champion. Problem List/Past Medical History Ongoing No qualifying data Historical No qualifying data Procedure/Surgical History No qualifying data available. Medications Home Medications (14) Active albuterol 2.5 mg/3 mL (0.083%) inhalation solution 2.5 mg = 3 mL, PRN, Inhalation, q6h allopurinol 100 mg oral tablet 100 mg = 1 tab(s), Oral, qDayPC amiodarone 100 mg oral tablet 200 mg = 2 tab(s), Oral, qDay Bevespi Aerosphere 9 mcg-4.8 mcg/inh inhalation aerosol 2 puff(s), Inhalation, BID Coreg 3.125 mg oral tablet 3.125 mg = 1 tab(s), Oral, Sun///Sat fluticasone 50 mcg/inh NASAL spray 2 spray(s), Nostril, each, qAM gabapentin 100 mg oral capsule 200 mg = 2 cap(s), Oral, qHS levothyroxine 25 mcg (0.025 mg) oral tablet 50 mcg = 2 tab(s), Oral, qDayAC midodrine 10 mg oral tablet 10 mg = 1 tab(s), Oral, Mon/Mon/Mon nitroglycerin 0.4 mg sublingual tablet 0.4 mg = 1 tab(s), PRN, Sublingual, q5min Tawanna-Laura oral tablet 1 tab(s), Oral, Daily rosuvastatin 10 mg oral tablet 10 mg = 1 tab(s), Oral, qHS sertraline 50 mg oral tablet 50 mg = 1 tab(s), Oral, qDay Vitamin C 500 mg oral tablet 500 mg = 1 tab(s), Oral, qDay Allergies Aspirin Enteric Coated amLODIPine indomethacin penicillin (Prednisone) predniSONE rOPINIRole traZODone Social History No social history on file Family History No family history on file Immunizations No qualifying data available. Code Status Code Status - Ordered -- 11/24/22 0:49:00 EDT, DNRCC-Arrest Intubate & Mechanical Vent, Constant Order Digitally Signed by CONRADO PEREZ MD on 11/24/2022 07:02 AM [facility] [id number] Telephone encounter Note* Telephone Encounter - Lima Beasley TECHNOLOGIST - 11/03/2022 3:01 PM EDT Prescription for Amiodarone 100 was sent to the wrong pharmacy [id number] Miscellaneous Notes* Telephone Encounter - Lima Beasley TECHNOLOGIST - 11/03/2022 3:01 PM EDT Prescription for Amiodarone 100 was sent to the wrong pharmacy documented in this [id number] Patient's home Progress note* Actions The pt's dressing and wound care had been completed earlier this morning. The pt is requesting that the dressing not be removed, and no picture taken as the wound is in a private area, and the pt has a visitor present at this time. The pt does not wish to interrupt the visit. documented in this encounter [id number] Patient's home Progress note* Actions Rehab Potential: good Clinical Summary/ DINORAH Pettus the Picture: Cert period 10/28/22 - 12-26-22 Why is home care continuing to see this patient (any change in status, diagnosis, or new treatments)? Wound education/assessment. Pt still has small open area to his coccyx. Amirah continues to be placed in the wound bed, and has shown progress. Was there any change in the disciplines caring for this patient (new PT, DRAWING HAND d/c)? No. SN continues. Any labs or vitals ranges: (INR, blood glucose) no Current or new ulcer or wound, what type, stage, location, and healing status? Any new wounds? Current and previous measurements: coccyx wound - showing improvement - amirah being placed in wound bed Current - 0.5cm x 0.3cm x 0.2cm Previous - 0.2cm x 0.2cm x 0.2cm Pt has a new large area with a palpable mass noted to his lower R buttock, which was found with his stay in the hospital. He and his were informed that there is no fluid in the mass and so the pt was only given antibiotics for it. The pt was seen by his PCP yesterday, and no new orders regarding this mass were provided to the pt/spouse or home care at this time. Has medication reconciliation been completed (list any new medications)? yes Any goals met? time, pt needing to use more pressure relief techniques Any barriers to meeting these goals? pt needing to use more pressure relief techniques What is the expectation of progress towards goals in the next 60 days? Coccyx wound fully healed with the pt having a better understanding of how to prevent/treat pressure injuries. By my signature below and as the certifying physician, I attest that this patient is estimated to require the stated skilled service(s) for :SN HOMEBOUND STATUS Criteria 1: Assistive Device(s): Walker Needs assistance of at least 1 to leave home Criteria 2: Patient confined to home due to limited ambulation related to weakness Type of Home: 1-story house/ trailer Called report to: Dr George's office with request to eveline pt's wound care orders. Notified physician of recertification to home care services. documented in this encounter [id number] Patient's home Progress note* Actions Rehab Potential: good Clinical Summary/ DINORAH Pettus the Picture: Cert period 10/28/22 - 12-26-22 Why is home care continuing to see this patient (any change in status, diagnosis, or new treatments)? Wound education/assessment. Pt still has small open area to his coccyx. Amirah continues to be placed in the wound bed, and has shown progress. Was there any change in the disciplines caring for this patient (new PT, DRAWING HAND d/c)? No. SN continues. Any labs or vitals ranges: (INR, blood glucose) no Current or new ulcer or wound, what type, stage, location, and healing status? Any new wounds? Current and previous measurements: coccyx wound - showing improvement - amirah being placed in wound bed Current - 0.5cm x 0.3cm x 0.2cm Previous - 0.2cm x 0.2cm x 0.2cm Pt has a new large area with a palpable mass noted to his lower R buttock, which was found with his stay in the hospital. He and his were informed that there is no fluid in the mass and so the pt was only given antibiotics for it. The pt was seen by his PCP yesterday, and no new orders regarding this mass were provided to the pt/spouse or home care at this time. Has medication reconciliation been completed (list any new medications)? yes Any goals met? time, pt needing to use more pressure relief techniques Any barriers to meeting these goals? pt needing to use more pressure relief techniques What is the expectation of progress towards goals in the next 60 days? Coccyx wound fully healed with the pt having a better understanding of how to prevent/treat pressure injuries. By my signature below and as the certifying physician, I attest that this patient is estimated to require the stated skilled service(s) for :SN HOMEBOUND STATUS Criteria 1: Assistive Device(s): Walker Needs assistance of at least 1 to leave home Criteria 2: Patient confined to home due to limited ambulation related to weakness Type of Home: 1-story house/ trailer Called report to: Dr George's office with request to eveline pt's wound care orders. Notified physician of recertification to home care services. documented in this encounter [id number] Patient's home Progress note* Actions The pt's dressing and wound care had been completed earlier this morning. The pt is requesting that the dressing not be removed, and no picture taken as the wound is in a private area, and the pt has a visitor present at this time. The pt does not wish to interrupt the visit. documented in this encounter [id number] Telephone encounter Note* Telephone Encounter - Dee Winston RN - 10/25/2022 1:48 PM EDT Images from the original note were not included. Just now (1:47 PM) Minh Valencia [facility] (supporting Lenin Ramirez MD) 41 minutes ago (1:06 PM) Thank you so much. I will continue the Coreg and Amiodorane. I will keep the P.A.N. assistance available until we see you in November. Blessings. . MD Minh Coburn 45 minutes ago (1:01 PM) I am certainly glad to hear that Ed is doing okay. If he was off Verquvo for 2 months and noticed no difference, it is unlikely that it is having much effect and I have no trouble with discontinuing it. With regards to both the amiodarone and Coreg, I think it is important that he continue those. You routed conversation to You; Lenin Ramirez MD 1 hour ago (12:28 PM) Minh Valencia [facility] (supporting eLnin Ramirez MD) 1 hour ago (12:26 PM) Good afternoon Dr. Ramirez. Hope this finds you well. I received assistance letter ($1200) from [facility] for Verquvo 5mg tab. Ed has not taken it for approximately 2 months with no obvious effects. I sent a renewal script request to your office. If you feel it isn't necessary for him to continue, please let me know. I also sent a renewal script request for Amiodorone 100mg. Again if you feel it's not necessary for him to continue, please let me know. One more question, he continues to take Coreg 3.25 twice daily for high blood pressure on off dialysis days. He takes Midodrine on dialysis days to keep his B/P up. Today (off dialysis day) his B/P was 106/62. Should he continue to take Coreg at all? Thank you. We will see you December 06.Janae Gonzalez [id number] Miscellaneous Notes* Telephone Encounter - Dee Winston RN - 10/25/2022 1:48 PM EDT Images from the original note were not included. Just now (1:47 PM) Minh Valencia [facility] (supporting Lenin Ramirez MD) 41 minutes ago (1:06 PM) Thank you so much. I will continue the Coreg and Amiodorane. I will keep the P.A.N. assistance available until we see you in November. Blessings. . MD Minh Coburn 45 minutes ago (1:01 PM) I am certainly glad to hear that Ed is doing okay. If he was off Verquvo for 2 months and noticed no difference, it is unlikely that it is having much effect and I have no trouble with discontinuing it. With regards to both the amiodarone and Coreg, I think it is important that he continue those. You routed conversation to You; Lenin Ramirez MD 1 hour ago (12:28 PM) Minh Mac [facility] (supporting Lenin Ramirez MD) 1 hour ago (12:26 PM) Good afternoon Dr. Ramirez. Hope this finds you well. I received assistance letter ($1200) from [facility] for Verquvo 5mg tab. Ed has not taken it for approximately 2 months with no obvious effects. I sent a renewal script request to your office. If you feel it isn't necessary for him to continue, please let me know. I also sent a renewal script request for Amiodorone 100mg. Again if you feel it's not necessary for him to continue, please let me know. One more question, he continues to take Coreg 3.25 twice daily for high blood pressure on off dialysis days. He takes Midodrine on dialysis days to keep his B/P up. Today (off dialysis day) his B/P was 106/62. Should he continue to take Coreg at all? Thank you. We will see you December 06.Janae Gonzalez documented in this [id number] Patient's home Progress note* Actions The pt's dressing and wound care had been completed earlier this morning. The pt is requesting that the dressing not be removed, and no picture taken as the wound is in a private area, and the pt has a visitor present at this time. The pt does not wish to interrupt the visit. documented in this encounter [id number] Note* Addendum Note - Froy Mason CRNA - 10/14/2022 3:49 PM EDT Addendum created 10/14/22 154 by Froy Mason CRNA Clinical Note Signed, Intraprocedure Blocks edited [id number] Miscellaneous Notes* Addendum Note - Froy Mason CRNA - 10/14/2022 3:49 PM EDT Addendum created 10/14/22 154 by Froy Mason CRNA Clinical Note Signed, Intraprocedure Blocks edited documented in this [id number] Patient's home Progress note* Actions The pt stands at his rollato r when his wound care is performed. Today, the picture was taken, as it was last week, with the [email or web address] catracho. the phone was then set down, and the wound care was performed as the pt gets tired easily from standing for too long of periods. After the wound care was complete, exam gloves were removed, hands sanitized, and the phone was picked back up to complete uploading the photo. While picking up the phone, the side button on the phone was pushed and the screen went black. the phone's home button was pushed to turned the screen back on the face page of the pt on [employer] was visible. the photo was lost. Measurements recorded. documented in this encounter [id number] Miscellaneous Notes* Home Health - Amparo Goel LPN - 08/18/2022 2:54 PM EDT Missed Visit. Patient did not want a visit. today. documented in this [id number] Patient's home Note* Home Health - Amparo Goel LPN - 08/18/2022 2:54 PM EDT Missed Visit. Patient did not want a visit. today. [id number] Telephone encounter Note* Telephone Encounter - Lima Beasley TECHNOLOGIST - 07/26/2022 9:00 AM EDT Amiodarone 200mg was DC'd [id number] Miscellaneous Notes* Telephone Encounter - Lima Beasley TECHNOLOGIST - 07/26/2022 9:00 AM EDT Amiodarone 200mg was DC'd documented in this [id number] Patient's home Progress note* Narratives Pt and spouse agreeable to d ischarge today. Pt reports attempts compliance with HEP daily, and is trying to walk more. Pt mowed his yard yesterday on the riding mower. documented in this encounter [id number] Evaluation + Plan note* Assessment & Plan Note - Lenin Ramirez MD - 05/31/2022 12:12 PM EDTAssociated Problem(s): Chronic systolic congestive heart failure (HCC) His recent echocardiogram read demonstrated significant LV dysfunction with an ejection fraction approximate 25 to 30%. Fortunately he has no overt signs or symptoms of heart failure on his current regimen. No changes were made today. [id number] Evaluation + Plan note* Assessment & Plan Note - Lenin Ramirez MD - 05/31/2022 12:12 PM EDTAssociated Problem(s): Essential hypertension His blood pressure which had been quite labile because of his hemodialysis, has been reasonably well controlled on his current regimen with no significant highs or lows. I made no changes today. [id number] Miscellaneous Notes* Assessment & Plan Note - Lenin Ramirez MD - 05/31/2022 12:12 PM EDTAssociated Problem(s): Chronic systolic congestive heart failure (HCC) His recent echocardiogram read demonstrated significant LV dysfunction with an ejection fraction approximate 25 to 30%. Fortunately he has no overt signs or symptoms of heart failure on his current regimen. No changes were made today. * Assessment & Plan Note - Lenin Ramirez MD - 05/31/2022 12:12 PM EDT Associated Problem(s): Essential hypertension His blood pressure which had been quite labile because of his hemodialysis, has been reasonably well controlled on his current regimen with no significant highs or lows. I made no changes today. * Assessment & Plan Note - Lenin Ramirez MD - 05/31/2022 12:11 PM EDT Associated Problem(s): Coronary artery disease involving [place] coronary artery of [place] heart without angina pectoris Given the extensive nature of this gentlemen's disease he is actually doing quite well now several years post CABG. He has no ischemic symptoms and remains relatively functional given all his other issues. No changes were made in his antianginal therapy. documented in this [id number] Evaluation + Plan note* Assessment & Plan Note - Lenin Ramirez MD - 05/31/2022 12:11 PM EDT Associated Problem(s): Coronary artery disease involving [place] coronary artery of [place] heart without angina pectoris Given the extensive nature of this gentlemen's disease he is actually doing quite well now several years post CABG. He has no ischemic symptoms and remains relatively functional given all his other issues. No changes were made in his antianginal therapy. [id number] History of Present illness Narrative* Lenin Ramirez MD - 05/31/2022 12:10 PM EDT I saw Minh Gonzalez in follow up in the office on 05/31/22. Ed is done and has done reasonably well since his partial colectomy last month. He had no perioperative complications and has recovered athome with no major issues. He has however lost more weight since he was home and he relates this topersistent diarrhea which has been an issue since his surgery and at this point does not appear to be improving. He continues to undergo hemodialysis which she tolerates well from a blood pressure standpoint and has had no overt signs or symptoms of heart failure and no angina. He remains extremelycompliant with his medical regimen which she also tolerates quite well. His only new complaint is the development of solid food dysphagia which appears to be moderately limiting from a dietary standpoint. He is scheduled to see his sales service assistant soon and I reiterated the importance of discussing this with him. Addressing this. Review of Systems: Documented in Medical Record Physical Exam Vital Signs: Blood Pressure 119/69 (BP Location: Right arm, Patient Position: Sitting, BP Cuff Size: Adult) Pulse 73 Height 5' 7 Weight 76.2 kg (168 lb) Oxygen Saturation 99% Body Mass Index 26.31 kg/m General: No acute distress, alert, and oriented x3. Skin: Normal turgor, well-hydrated, HEENT: Normocephalic,EOMI Neck: Supple, no bruits Cardiovascular: Regular rate and rhythm. No murmurs gallops or rubs. No JVD. No peripheral edema noted. Respiratory: Clear to auscultation and percussion, no rales, rhonchi or wheezes Abdominal: Soft, nontender, nondistended, without masses or bruits. Extremities : No clubbing or cyanosis. Pulses intact. Neurological: Cranial nerves grossly intact. No focal neurological deficits noted. Psych: Normal mood and affect Allergy Information: I have reviewed the patient's allergies. Penicillins, Ec aspirin, Prednisone, Amlodipine, and Oxycodone Home Medications: Current Outpatient Medications: acetaminophen (TYLENOL) 325 MG tablet, Take 2 (two) tablets (650 mg total) by mouth every 4 (four) hours as needed for pain ., Disp: , Rfl: albuterol (PROVENTIL) 2.5 mg /3 mL (0.083 %) nebulizer solution, Take 3 mL (2.5 mg total) by nebulization 2 (two) times a day as needed for wheezing And as needed ., Disp: , Rfl: allopurinoL (ZYLOPRIM) 100 MG tablet, Take 1 (one) tablet (100 mg total) by mouth daily ., Disp: 90tablet, Rfl: 3 amiodarone (CORDARONE) 100 MG tablet, Take 1 (one) tablet (100 mg total) by mouth daily ., Disp: 90tablet, Rfl: 3 ASCORBATE CALCIUM (VITAMIN C ORAL), Take 500 mg by mouth daily., Disp: , Rfl: aspirin 81 mg chewable tablet, Chew and Swallow 1 (one) tablet (81 mg total) daily Patient cannot take coated aspirin. Uses chewable instead. ., Disp: , Rfl: carvediloL (COREG) 6.25 MG tablet, Take 1 (one) tablet (6.25 mg total) by mouth 2 (two) times a day. (Patient taking differently: Take 0.5 (one-half) tablet (3.125 mg total) by mouth 2 (two) times aday Does not take on dialysis day. .), Disp: 180 tablet, Rfl: 3 fluticasone propionate (FLONASE) 50 mcg/actuation nasal spray, Instill 2 (two) sprays into each nostril daily ., Disp: , Rfl: gabapentin (Neurontin) 100 MG capsule, Take 1 (one) capsule (100 mg total) by mouth nightly . (Patient taking differently: Take 2 (two) capsules (200 mg total) by mouth nightly .), Disp: 90 capsule, Rfl: 3 glycopyrrolate-formoteroL (Bevespi Aerosphere) 9-4.8 mcg HFAA, Inhale 2 puffs 2 (two) times a day ., Disp: , Rfl: guaiFENesin (MUCINEX) 600 mg 12 hr tablet, Take 1 (one) tablet (600 mg total) by mouth 2 (two) times a day ., Disp: , Rfl: levothyroxine (SYNTHROID, LEVOTHROID) 50 MCG tablet, Take 1 (one) tablet (50 mcg total) by mouth once daily ., Disp: 90 tablet, Rfl: 3 midodrine (PROAMATINE) 10 MG tablet, Take 1 (one) tablet (10 mg total) by mouth daily only before HD on dialysis days Mon, Wed, Fri ., Disp: , Rfl: nitroGLYCERIN (NITROSTAT) 0.4 MG SL tablet, Place 1 (one) tablet (0.4 mg total) under the tongue every 5 (five) minutes as needed for chest pain ., Disp: 25 tablet, Rfl: 4 OXYGEN-AIR DELIVERY SYSTEMS [facility], Administer 3 L into one nostril as needed (sob) ., Disp: , Rfl: pantoprazole (PROTONIX) 40 MG tablet, Take 1 (one) tablet (40 mg total) by mouth 2 (two) times a day ., Disp: , Rfl: potassium, sodium phosphates (Phos-NaK) 280-160-250 mg PwPk, Take 1 (one) packet by mouth 4 (four) times a day with meals and nightly Has 2 more days to take ., Disp: , Rfl: Tawanna-Laura 0.8 mg tablet, Take 1 (one) tablet by mouth daily ., Disp: , Rfl: rosuvastatin (CRESTOR) 10 MG tablet, TAKE 1 TABLET AT BEDTIME RECENT INCREASE FROM 5MG, Disp: 90 tablet, Rfl: 3 sertraline (ZOLOFT) 50 MG tablet, Take 1 (one) tablet (50 mg total) by mouth daily ., Disp: , Rfl: traMADoL (ULTRAM) 50 mg tablet, Take 0.5 (one-half) tablet (25 mg total) by mouth nightly ., Disp: , Rfl: vericiguat (Verquvo) 5 mg Tab, Take 1 (one) tablet (5 mg total) by mouth daily ., Disp: 90 tablet, Rfl: 3 Assessment/Plan: Coronary artery disease involving [place] coronary artery of [place] heart without angina pectoris Given the extensive nature of this gentlemen's disease he is actually doing quite well now several years post CABG. He has no ischemic symptoms and remains relatively functional given all his other issues. No changes were made in his antianginal therapy. Essential hypertension His blood pressure which had been quite labile because of his hemodialysis, has been reasonably well controlled on his current regimen with no significant highs or lows. I made no changes today. Chronic systolic congestive heart failure (HCC) His recent echocardiogram read demonstrated significant LV dysfunction with an ejection fraction approximate 25 to 30%. Fortunately he has no overt signs or symptoms of heart failure on his current regimen. No changes were made today. documented in this [id number] Patient's home Progress note* Narratives 76 yo male referred to [facility] services following hospitalization from 04/26/22-04/30/22 for R colon cancer and is s/p hemicolectomy on 04/26/22. Pt is on continuous O2 with BiPAP. PMHX: malignant neoplasm of ascending colon, MARCELO on CPAP, B pleural effusion, COPD, paraoxysmal v-tach, HTN, CAD, NSTEMI, paraoxysmal a-fib, CKD stage IV, ESRD on dialysis, dyspnea on exertion, MD s/p CABG in 10/2020, anemia, PNA, sepsis, CHF, major depressive disorder, BPH, GERD, gout PLOF: Pt states he was previously ambulating with a FWW and required assistance/suprevision with all functional mobility including transfers from low surfaces. Current level/needs: ther ex for BLE strengthening, transfer training, stair training, balance re-education, abdominal precautions, falls risk reduction, gait training OWNS (DME): powered wheel chair, transport chair, FWW, lift chair, veterinary medical officer, tripod cane, bath chair, elevated toilet seat, grab bars in bathroom FALLS: Pt reports 3-4 falls within the past year, last fall reported about 2 months ago where pt become fatigued prior to entering the home and fell on his buttocks. APPTS: 05/17/[address] Doris WELCH PREFERS: after 3pm on MWF due to dialysis, PRECAUTIONS: abdominal precautions, no bending, lifting, twisting, bracing of abdominal incision when coughing, sneezing, or having BM, avoidance of valsalva manuever GOALS: I want to get some strength in my legs so I can get outside without help . PT eval complete, PT 2x2, 1x1 Skilled interventions at [facility] included: Education provided for edema management, abdominal precautions, abdominal bracing, avoidance of valsalva, recommended use of gait belt and POC with pt and spouse agreeing/consenting. All questions answered, contact information provided for future questions/concerns. documented in this encounter [id number] Anesthesiology Postoperative evaluation and management note * Anesthesia Postprocedure Evaluation - Juan Mccallum MD - 04/26/2022 12:00 PM EST Anesthesia Post Evaluation * * Refer to nursing documentation for PACU vitals * * Patient participation: patient participated Mental status: sleepy but conscious Pain management: adequate Anesthetic complications: no Nausea / vomiting: no Respiratory / airway status: nasal cannula Postoperative hydration: hemodynamically stable [facility] Work Phone: [phone]) [phone] Surgical operation note* Anesthesia Postprocedure Evaluation - Juan Mccallum MD - 04/26/2022 12:00 PM EST Anesthesia Post Evaluation * * Refer to nursing documentation for PACU vitals * * Patient participation: patient participated Mental status: sleepy but conscious Pain management: adequate Anesthetic complications: no Nausea / vomiting: no Respiratory / airway status: nasal cannula Postoperative hydration: hemodynamically stable * Anesthesia Procedure Notes - Froy Mason CRNA - 04/26/2022 10:19 AM ESTAssociated Order(s): NG/OG Tube NG/OG Tube Tube type: orogastric Tube size: 18 Fr Tube location: mouth Placement verification: suction return *See MAR for medication administration * Anesthesia Procedure Notes - Froy Mason CRNA - 04/26/2022 10:14 AM ESTAssociated Order(s): ETT Airway ETT Airway Mask ventilation: ventilated by mask with oral airway Technique: direct laryngoscopy and intubating stylet Type: cuffed oral Tube size: 7.5 mm Final laryngoscope: Mac 3 Location: oral Final grade: 1 Insertion attempts: 1 Placement verification: end tidal CO2 and symmetrical chest wall movement Secured at: 22 cm (measured from the lips) Secured by: tape Lip/tooth/tongue trauma: no Comments: Intubated by medic student *See MAR for medication administration * Anesthesia Preprocedure Evaluation - Juan Mccallum MD - 04/26/2022 9:06 AM EST ANESTHESIA PREPROCEDURE EVALUATION Anesthesia Plan ASA: 4 Type: regional and general Airway: endotracheal tube Induction: intravenous Anesthetic plan and risks as outlined in the consent discussed with: patient Use of blood products discussed with: patient Physical Exam Airway Mallampati: II TM Distance: >3 FB Neck ROM: full Mouth opening: >3 FB Neurological Mental Status: alert Dental dentures (upper and lower) upper: full lower: full Review of Systems / Medical History - Reviewed: ECG, patient summary, anesthesia history, medical history, H&P, labs / results and nursing notes - No history of anesthetic complications Pulmonary Comment: On home oxygen Positive: COPD, shortness of breath sleep apnea (CPAP) Neurological / Psychological Positive: depression Cardiovascular Comment: 11/09/2021 7:47 AM Patient Status: Outpatient Panel Wirer: Zenia Randolph, ISIDORO, RVT Exam Type: ECHOCARDIOGRAM LIMITED WITH CONTRAST Study Info Indications - Re-assess LV function I50.22 - Chronic systolic (congestive) heart failure Referring Physician: LENIN RAMIREZ ; [id number] BMI: 29.91 kg/m2 Summary 1. Limited Empty transthoracic echocardiogram is performed with contrast. 2. Left ventricular systolic function is moderate to severely reduced with an ejection fractionof 30%. 3. Right ventricular chamber dimension is mildly enlarged. 4. Right ventricular systolic function is mildly reduced. Positive: hypertension CAD, CABG/stent CHF, hyperlipidemia pulmonary hypertension Gastrointestinal / Hepatic / Renal Positive: GERD, renal disease and ESRD and dialysis Endocrine / Musculoskeletal Positive: anemia Other Positive: cancer documented in this [id number] Procedure anesthesia Narrative * Procedure Summary Procedure Name Responsible Anesthesiologist Anesthesia Start Time Anesthesia Stop Time RIGHT OPEN HEMICOLECTOMY (Right) Juan Mccallum MD 04/26/22 0932 04/26/22 1201 Events Date Time Event Comment 04/26/2022 0908 0932 AN Equip Check 0932 An Start 0932 Patient Verification 0932 An Start Data 0942 An Induction 0943 An Intubation 0945 Anesthesia Ready 1147 [facility] OR 02 1152 An Extubation 1154 an stop data 1200 Handoff I completed my SBAR handoff to the receiving nurse in the PACU/unit. 1201 An Stop Meds * Agents No agents on file. * Blood No blood administrations on file. Lines, Drains, and Airways Type Details Placement Removal Hemodialysis Fistula/Graft Access (unknown); (unknown); Fistula; Left; Forearm 01/18/21 0801 by Octavia Ibrahim RN Wound 09/03/20; 0848; Surg ical Wou; Chest; 05/01/22; DRESSING 4 X 14IN COVADERM (x1), SPONGE 4 X 4IN 6-PLY DRAIN STERL (x2) 09/03/20 0848 by Hong Rehman RN 05/01/22 0000 by Melida Cook RN Wound 10/27/20; 0935; Othe r (Thoracentesis); Back; Left; 05/01/22 10/27/20 0935 by Sachin Milan RN 05/01/22 0000 by Melida Cook RN Wound 10/27/20; 0936; Othe r (thoracentesis); Back; Right; 05/01/22; exofin, 4x4s and tegaderm 10/27/20 0936 by Sachin Milan RN 05/01/22 0000 by Melida Cook RN Wound 01/19/21; 0831; Ches t; Left; 05/01/22; exofin, drain sponge, 4 x 4s, tegaderm 01/19/21 0831 by Katherine Hector RN 05/01/22 0000 by Melida Cook RN Wound 08/12/21; 1356; Incision; Chest; Upper, Left, Right; 05/01/22; 4x4, tegaderm 08/12/21 1356 by Klaudia Sosa RN 05/01/22 0000 by Melida Cook RN Peripheral IV Placement Date: 04/26/22; Placement Time: 0755; Orientation: Anterior, Proximal, Right; Location: Forearm; Site Prep: Chlorhexidine ; Patient Tolerance: Tolerated well; Removal Date: 04/30/22; Removal Time: 1226 04/26/22 0755 by Joann Gonzalez LPN 04/30/22 1226 by Marylu Shepard RN Urethral Catheter Placement Date: 04/26/22; Placement Time: 1000; Inserted by: Nicky Fischer RN; Type: Straight-tip, Non-latex; Size: 16 Fr.; Balloon Size: 10 mL; Urine Returned: Yes; Removal Date: 04/27/22; Removal Time: 2037; Removal Reason: Per order 04/26/22 1000 by Juancho Portillo RN 04/27/222037 by Aga Cee RN ETT Placement Date: 04/26/22; Placement Time: 1015 (created via procedure documentation); Mask Ventilation: Ventilated by mask with oral airway; Type: Cuffed, Oral; Tube Size: 7.5 mm; Grade View: 1; Insertion Attempts: 1; Removal Date: 04/26/22; Removal Time: 1152 04/26/22 1015 by Froy Mason CRNA 04/26/22 1152 by Juan Mccallum MD Wound 02/14/23; 1113; Abdo men; Upper, Medial; 06/02/22; BLAINE, THERESAABOND PRINEO 04/26/22 1113 by Wilson Grey RN 06/02/22 0000 by Андрей Claros RN documented in this encounter [id number] Anesthesiology procedure note* Anesthesia Procedure Notes - Froy Mason CRNA - 04/26/2022 10:19 AM ESTAssociated Order(s): NG/OG Tube NG/OG Tube Tube type: orogastric Tube size: 18 Fr Tube location: mouth Placement verification: suction return *See MAR for medication administration [facility] Work Phone: [phone]) 261-722602-14-2023 Anesthesiology procedure note* Anesthesia Procedure Notes - Froy Mason CRNA - 04/26/2022 10:14 AM EST Associated Order(s): ETT Airway ETT Airway Mask ventilation: ventilated by mask with oral airway Technique: direct laryngoscopy and intubating stylet Type: cuffed oral Tube size: 7.5 mm Final laryngoscope: Mac 3 Location: oral Final grade: 1 Insertion attempts: 1 Placement verification: end tidal CO2 and symmetrical chest wall movement Secured at: 22 cm (measured from the lips) Secured by: tape Lip/tooth/tongue trauma: no Comments: Intubated by medic student *See MAR for medication administration [id number] Anesthesiology Preoperative evaluation and management note * Anesthesia Preprocedure Evaluation - Juan Mccallum MD - 04/26/2022 9:06 AM EST ANESTHESIA PREPROCEDURE EVALUATION Anesthesia Plan ASA: 4 Type: regional and general Airway: endotracheal tube Induction: intravenous Anesthetic plan and risks as outlined in the consent discussed with: patient Use of blood products discussed with: patient Physical Exam Airway Mallampati: II TM Distance: >3 FB Neck ROM: full Mouth opening: >3 FB Neurological Mental Status: alert Dental dentures (upper and lower) upper: full lower: full Review of Systems / Medical History - Reviewed: ECG, patient summary, anesthesia history, medical history, H&P, labs / results and nursing notes - No history of anesthetic complications Pulmonary Comment: On home oxygen Positive: COPD, shortness of breath sleep apnea (CPAP) Neurological / Psychological Positive: depression Cardiovascular Comment: 11/09/2021 7:47 AM Patient Status: Outpatient Panel Wirer: Zenia Randolph, VINICIUSCS, RVT Exam Type: ECHOCARDIOGRAM LIMITED WITH CONTRAST Study Info Indications - Re-assess LV function I50.22 - Chronic systolic (congestive) heart failure Referring Physician: LENIN RAMIREZ ; [id number] BMI: 29.91 kg/m2 Summary 1. Limited Empty transthoracic echocardiogram is performed with contrast. 2. Left ventricular systolic function is moderate to severely reduced with an ejection fractionof 30%. 3. Right ventricular chamber dimension is mildly enlarged. 4. Right ventricular systolic function is mildly reduced. Positive: hypertension CAD, CABG/stent CHF, hyperlipidemia pulmonary hypertension Gastrointestinal / Hepatic / Renal Positive: GERD, renal disease and ESRD and dialysis Endocrine / Musculoskeletal Positive: anemia Other Positive: cancer [id number] History of Present illness Narrative* Sherry George DO - 04/06/2022 8:39 AM EST NEW PATIENT -- CECAL MASS This is a 76 y/o male who presents to office at the request of Dr. Pizano, surgeon at [facility], for evaluation and treatment of a cecal mass. He was admitted to the hospital earlier this month, with a GI bleed. Capsule endoscopy identified bleeding in the colon, and subsequent colonoscopy revealed a cecal mass. Biopsy confirmed poorly differentiated adenocarcinoma. He also had anEGD which showed multiple non-bleeding gastric ulcers. He denies abdominal pain, nausea, vomiting, constipation, and diarrhea. He denies melena and hematochezia. He denies history of jaundice. He denies unintentional weight loss. Pt has had the following imaging studies: CT CAP. Past Medical History: Diagnosis Date Anemia Arteriosclerosis of kidney Arthritis CHF (congestive heart failure) (HCC) Chronic kidney disease (CKD) Chronic kidney disease (CKD) stage G4/A1, severely decreased glomerular filtration rate (GFR) between 15-29 mL/min/1.73 square meter and albuminuria creatinine ratio less than 30 mg/g ([facility]) COPD, severe ([facility]) 03/2018 Coronary artery disease FSGS (focal segmental glomerulosclerosis) Hyperlipidemia Hypertension MRSA (methicillin resistant Staphylococcus aureus) UNKNOWN Myocardial infarction ([facility]) NYHA class 4 heart failure with reduced ejection fraction ([facility]) LVEF 30% MARCELO on CPAP 2018 Pneumonia Sepsis ([facility]) Current Outpatient Medications: acetaminophen (TYLENOL) 325 MG tablet, Take 2 (two) tablets (650 mg total) by mouth every 4 (four) hours as needed for pain ., Disp: , Rfl: albuterol (PROVENTIL) 2.5 mg /3 mL (0.083 %) nebulizer solution, Take 3 mL (2.5 mg total) by nebulization 2 (two) times a day as needed for wheezing And as needed ., Disp: , Rfl: allopurinoL (ZYLOPRIM) 100 MG tablet, Take 1 (one) tablet (100 mg total) by mouth daily ., Disp: 90tablet, Rfl: 3 amiodarone (CORDARONE) 100 MG tablet, Take 1 (one) tablet (100 mg total) by mouth daily ., Disp: 90tablet, Rfl: 3 apixaban (ELIQUIS) 5 mg Tab, Take 1 (one) tablet (5 mg total) by mouth Monday, Monday, Monday Give 1 tablet 2 hours prior to dialysis ., Disp: 36 tablet, Rfl: 3 ASCORBATE CALCIUM (VITAMIN C ORAL), Take 500 mg by mouth daily., Disp: , Rfl: carvediloL (COREG) 6.25 MG tablet, Take 1 (one) tablet (6.25 mg total) by mouth 2 (two) times a day., Disp: 180 tablet, Rfl: 3 fluticasone propionate (FLONASE) 50 mcg/actuation nasal spray, Instill 2 (two) sprays into each nostril daily ., Disp: , Rfl: gabapentin (Neurontin) 100 MG capsule, Take 1 (one) capsule (100 mg total) by mouth nightly ., Disp: 90 capsule, Rfl: 3 glycopyrrolate-formoteroL (Bevespi Aerosphere) 9-4.8 mcg HFAA, Inhale 2 puffs 2 (two) times a day ., Disp: , Rfl: guaiFENesin (MUCINEX) 600 mg 12 hr tablet, Take 1 (one) tablet (600 mg total) by mouth 2 (two) times a day ., Disp: , Rfl: levoFLOXacin (LEVAQUIN) 500 MG tablet, Take 1 (one) tablet (500 mg total) by mouth daily ., Disp: ,Rfl: levothyroxine (SYNTHROID, LEVOTHROID) 50 MCG tablet, Take 1 (one) tablet (50 mcg total) by mouth once daily ., Disp: 90 tablet, Rfl: 3 MAGNESIUM OXIDE (MAG-OXIDE ORAL), Take 400 mg by mouth 2 (two) times a day , Disp: , Rfl: midodrine (PROAMATINE) 10 MG tablet, Take 1 (one) tablet (10 mg total) by mouth daily only before HD on dialysis days Mon, Wed, Fri ., Disp: , Rfl: MULTIVITAMIN ORAL, Take 1 tablet by mouth daily., Disp: , Rfl: nitroGLYCERIN (NITROSTAT) 0.4 MG SL tablet, Place 1 (one) tablet (0.4 mg total) under the tongue every 5 (five) minutes as needed for chest pain ., Disp: 25 tablet, Rfl: 4 OXYGEN-AIR DELIVERY SYSTEMS [facility], Administer 3 L into one nostril as needed (sob) ., Disp: , Rfl: Tawanna-Laura 0.8 mg tablet, Take 1 (one) tablet by mouth daily ., Disp: , Rfl: rosuvastatin (Crestor) 10 MG tablet, Take 1 (one) tablet (10 mg total) by mouth at bedtime Recent increase per Pcp from 5 mg ., Disp: 90 tablet, Rfl: 3 sertraline (ZOLOFT) 50 MG tablet, Take 1 (one) tablet (50 mg total) by mouth daily ., Disp: , Rfl: vericiguat (Verquvo) 5 mg Tab, Take 1 (one) tablet (5 mg total) by mouth daily ., Disp: 90 tablet, Rfl: 3 ASPIRIN ORAL, Take 81 mg by mouth daily Doing for a month post knee repalcement ., Disp: , Rfl: epoetin anabel (EPOGEN,PROCRIT) 10,000 unit/mL injection, Inject 10,000 Units under the skin once ., Disp: , Rfl: ferrous gluconate (FERGON) 246 (28 FE) MG tablet, Take 65 mg by mouth daily with breakfast ., Disp:, Rfl: furosemide (LASIX) 40 MG tablet, Take 1 (one) tablet (40 mg total) by mouth 2 (two) times a day ., Disp: 180 tablet, Rfl: 3 melatonin 5 mg Tab, Take 1 (one) tablet (5 mg total) by mouth nightly ., Disp: , Rfl: omeprazole (PRILOSEC) 20 MG capsule, Take 1 (one) capsule (20 mg total) by mouth daily to prevent/treat heartburn ., Disp: 90 capsule, Rfl: 3 spironolactone (ALDACTONE) 25 MG tablet, 1/2 tablet daily . (Patient not taking: Reported on 11/23/2021 .), Disp: 45 tablet, Rfl: 3 traMADoL (ULTRAM) 50 mg tablet, Take 1 (one) tablet (50 mg total) by mouth 3 (three) times a day asneeded for pain ., Disp: , Rfl: UNABLE TO FIND, Take 1 tablet by mouth daily Tart girard tablets ., Disp: , Rfl: vericiguat (Verquvo) 5 mg Tab, Take 1 (one) tablet (5 mg total) by mouth daily Patient to take 2.5 mg daily x 2 weeks then 5 mg daily. Start: 09/16/21., Disp: 14 tablet, Rfl: 0 Allergies: Penicillins, Amlodipine, Ec aspirin, and Prednisone Social History Socioeconomic History Marital status: Tobacco Use Smoking status: Former Types: Cigarettes Quit date: 03/13/1989 Years since quittin.0 Smokeless tobacco: Never Vaping Use Vaping Use: Never used Substance and Sexual Activity Alcohol use: Yes Alcohol/week: 1.0 standard drink Types: 1 Cans of beer per week Comment: about q3mo Drug use: No Sexual activity: Yes Partners: Female Past Surgical History: Procedure Laterality Date CABG N/A 09/03/2020 Procedure: CORONARY ARTERY BYPASS GRAFT; Surgeon: Mil Dee MD; Location: [facility] [place] Main OR; Service: Cardiothoracic CARDIAC CATHETERIZATION N/A 08/11/2014 Procedure: Left Heart Cath Possible PTCA/Stent; Surgeon: Lenin Ramirez MD; Location: [facility] [place] EDUCATION RN; Service: CARDIAC CATHETERIZATION Right 12/31/2014 Procedure: Left Heart Cath Possible PTCA/Stent; Surgeon: Ranulfo Cobb MD; Location: [facility] [place] EDUCATION RN; Service: CARDIAC CATHETERIZATION 08/11/2014 EF: 55% CARDIAC CATHETERIZATION 11/06/2006 EF: 45% CARDIAC CATHETERIZATION 08/09/2005 EF: 50% CARDIAC CATHETERIZATION 07/08/2005 EF: 45% CARDIAC CATHETERIZATION 12/31/2014 EF: 55% CORONARY ANGIOPLASTY WITH STENT PLACEMENT 08/09/2005 NORM- CX, RCA CORONARY ANGIOPLASTY WITH STENT PLACEMENT 07/08/2005 NORM- RCA CORONARY STENT PLACEMENT FOOT SURGERY Right hemodialysis fistula graft placement 12/14/2020 INSERTION PLEURAL CATHETER Right 01/18/2021 Procedure: RIGHT PLEUR X CATHETER PLACEMENT; Surgeon: Jalil Sparks MD; Location: [facility] [place] HYBRID OR; Service: Cardiothoracic INSERTION PLEURAL CATHETER Left 01/19/2021 Procedure: LEFT PLEUR X CATHETER PLACEMENT; Surgeon: Jalil Sparks MD; Location: [facility] [place] Main OR; Service: Cardiothoracic INTERVENTIONAL RADIOLOGY PROCEDURE 08/27/2020 IR THORACENTESIS LT 08/27/2020 Jesus Choudhary MD [facility] [place] INTERVENTION RAD INTERVENTIONAL RADIOLOGY PROCEDURE 08/27/2020 IR THORACENTESIS RT 08/27/2020 Jesus Choudhary MD [facility] [place] INTERVENTION RAD INTERVENTIONAL RADIOLOGY PROCEDURE 10/27/2020 IR THORACENTESIS LT 10/27/2020 Varun Kathleen MD [facility] [place] INTERVENTION RAD INTERVENTIONAL RADIOLOGY PROCEDURE 10/27/2020 IR THORACENTESIS RT 10/27/2020 Varun Kathleen MD [facility] [place] INTERVENTION RAD JOINT REPLACEMENT knee replacement KNEE SURGERY REMOVAL PLEURAL CATHETER Bilateral 08/12/2021 Procedure: BILATERAL PLEURAL CATHETERS REMOVAL; Surgeon: Jalil Sparks MD; Location: [facility] [place] Main OR; Service: Cardiothoracic RENAL BIOPSY TONSILLECTOMY Family History Problem Relation Age of Onset Stroke Mother Heart attack Father 54 Heart failure Father Hodgkin's lymphoma Father Review of Systems Constitutional: Negative. HENT: Negative. Eyes: Negative. Respiratory: Negative. Cardiovascular: Negative. Gastrointestinal: Negative. Endocrine: Negative. Genitourinary: Negative. Musculoskeletal: Negative. Skin: Negative. Allergic/Immunologic: Negative. Neurological: Negative. Hematological: Negative. Psychiatric/Behavioral: Negative. Physical Exam BP (!) 106/57 (BP Location: Right arm, Patient Position: Sitting, BP Cuff Size: Adult) Pulse 78 Resp 16 Wt 81.2 kg (179 lb) BMI 28.04 kg/m GENERAL: Awake, alert, oriented x 3. No acute distress. Gait, ambulation normal. Mood, affect appropriate. SKIN: Warm, dry, intact. No rashes or wounds. HEENT: Head atraumatic, normocephalic. Eyes--EOMI. Lids, sclera, conjunctiva normal. No exophthalmos. External ear anatomy normal. Mucous membranes moist. CV: NSR. No JVD. PULM: Non-labored breathing. No use of accessory muscles. ABDOMEN: Soft, nondistended, nontender. There are no palpable masses or hernias. No surgical scars. EXTREMITIES: Mild peripheral edema in lower extremities; pt is wearing compression stockings. Imaging CT images not available for me to review. Per report, there is no metastatic disease. Assessment and Plan: Minh was seen today for cecal mass. Diagnoses and all orders for this visit: MARCELO on CPAP Malignant neoplasm of ascending colon (HCC) Coronary artery disease involving [place] coronary artery of [place] heart without angina pectoris S/P CABG (coronary artery bypass graft) Chronic obstructive pulmonary disease, unspecified COPD type (HCC) ESRD on dialysis (HCC) Chronic systolic congestive heart failure (HCC) Anticoagulated, on Eliquis - Recommend open right hemicolectomy. Open procedure will be fastest, minimizing anesthesia time - Will perform rectus sheath block intra-op - I discussed the procedure in detail with the patient as well as potential complications, anticipated recovery time, and postoperative activity restrictions. He understands and agrees to proceed with surgery. - Potential complications include: bleeding, infection, delayed wound healing, anastomotic leak, injury to bowel, pneumonia, DVT/PE, and . - This patient has the following risk factors, which increases his risk for pot- operative complications: anticoagulation increases risk for postop bleeding when AC is resumed; O2-dependent COPD increases risk for postop pneumonia and prolonged ventilator dependence; pt is severely deconditioned, which increases risk for postop DVT/PE, pneumonia. - Will obtain cardiac clearance from Dr. Ramirez, given CAD, use of Eliquis, and CHF with EF 30-35%. Ideally, I would like to hold ASA x 7 days and Eliquis x 2 days preop, but can operate with pt still taking ASA if necessary. - Will get pt on OR schedule in next few weeks, after medical and cardiac clearance documented in this [id number] History of Present illness Narrative* Christina Hanley RN - 12/15/2021 3:23 PM EDT Referral received from [facility] today--Call received from [facility] to see if [facility] could accept. Katt at [facility] at this time, advised [facility] could not accept documented in this [id number] Note* Addendum Note - Rachel Strange MA - 09/01/2021 1:56 PM EDTAddended by: ARCHEL STRANGE on: 09/01/2021 01:56 PM Modules accepted: Orders [id number] Note* Addendum Note - Rachel Strange MA - 09/01/2021 1:56 PM EDTAddended by: RACHEL STRANGE on: 09/01/2021 01:56 PM Modules accepted: Orders [id number] Miscellaneous Notes* Addendum Note - Rachel Strange MA - 09/01/2021 1:56 PM EDTAddended by: RACHEL STRANGE on: 09/01/2021 01:56 PM Modules accepted: Orders * Telephone Encounter - Rachel Strange MA - 09/01/2021 1:20 PM EDT Yes, of course. Called and spoke to tech to get a copay for the med and it will require a PA first.I will work on PA once it comes through fax. Rep stopped by and gave me free 30 day voucher cards, which covers the 2.5 mg for 2 weeks and 5 mg for 2 weeks as well. Called pharmacy and spoke to [employer] and she ran the voucher card it covered the 2.5 mg for 2 weeks. Will mail the patient 5 mg samples to cover the other 2 weeks. Called and spoke to patient's and explained the above. She was very thankful. Verquvo 5 mg every day Qty 14 Lot- [id number] EXP-04/15/2022 * Telephone Encounter - Lenin Ramirez MD - 09/01/2021 1:03 PM EDT Thank you. Is there a chance we could send Ed 2 weeks of the 2.5 dose followed by 2 weeks of the 5.0 dose. If he tolerates that then we can work on the prescription. I did speak with the rep at the hospital last week and he assured me they have a very generous' [employer] program. * Telephone Encounter - Rachel Strange MA - 09/01/2021 12:27 PM EDT Once rx is sent and signed, I will call pharmacy and check roque. I also reached out to the rep, will wait to hear a response regarding assistance with the drug. Samples are available of this drug though [facility], if needed. * Telephone Encounter - Dee Winston RN - 09/01/2021 12:22 PM EDT ----- Message from Lenin Ramirez MD sent at 09/01/2021 12:01 PM EDT ----- Ed's chest x-ray does demonstrate small effusions but nothing which is changed. It also demonstrates fluid overload. I am hopeful that he can withdraw enough fluid to make him more comfortable. 1 medicine we might be able to try would be Verquvo which she would like to tolerate and would not affecthis blood pressure. Since this is new is likely very expensive. Could you asked Karyn and Rachel steve nk you looking into any way to get it for him. Starting dose is 2.5 mg for 2 weeks then increase to5 mg daily. documented in this [id number] Miscellaneous Notes* Addendum Note - Rachel Strange MA - 09/01/2021 1:56 PM EDTAddended by: RACHEL STRANGE on: 09/01/2021 01:56 PM Modules accepted: Orders * Telephone Encounter - Rachel Strange MA - 09/01/2021 1:20 PM EDT Yes, of course. Called and spoke to [employer] to get a copay for the med and it will require a PA first.I will work on PA once it comes through fax. Rep stopped by and gave me free 30 day voucher cards, which covers the 2.5 mg for 2 weeks and 5 mg for 2 weeks as well. Called pharmacy and spoke to [employer] and she ran the voucher card it covered the 2.5 mg for 2 weeks. Will mail the patient 5 mg samples to cover the other 2 weeks. Called and spoke to patient's and explained the above. She was very thankful. Verquvo 5 mg every day Qty 14 Lot- [id number] EXP-04/15/2022 * Telephone Encounter - Lenin Ramirez MD - 09/01/2021 1:03 PM EDT Thank you. Is there a chance we could send Ed 2 weeks of the 2.5 dose followed by 2 weeks of the 5.0 dose. If he tolerates that then we can work on the prescription. I did speak with the rep at the hospital last week and he assured me they have a very generous' [employer] program. * Telephone Encounter - Rachel Strange MA - 09/01/2021 12:27 PM EDT Once rx is sent and signed, I will call pharmacy and check roque. I also reached out to the rep, will wait to hear a response regarding assistance with the drug. Samples are available of this drug though [facility], if needed. * Telephone Encounter - Dee Winston RN - 09/01/2021 12:22 PM EDT ----- Message from Lenin Ramirez MD sent at 09/01/2021 12:01 PM EDT ----- Ed's chest x-ray does demonstrate small effusions but nothing which is changed. It also demonstrates fluid overload. I am hopeful that he can withdraw enough fluid to make him more comfortable. 1 medicine we might be able to try would be Verquvo which she would like to tolerate and would not affecthis blood pressure. Since this is new is likely very expensive. Could you asked Leroy steve nk you looking into any way to get it for him. Starting dose is 2.5 mg for 2 weeks then increase to5 mg daily. documented in this [id number] Telephone encounter Note* Telephone Encounter - Rachel Strange MA - 09/01/2021 1:20 PM EDT Yes, of course. Called and spoke to [employer] to get a copay for the med and it will require a PA first.I will work on PA once it comes through fax. Rep stopped by and gave me free 30 day voucher cards, which covers the 2.5 mg for 2 weeks and 5 mg for 2 weeks as well. Called pharmacy and spoke to [employer] and she ran the voucher card it covered the 2.5 mg for 2 weeks. Will mail the patient 5 mg samples to cover the other 2 weeks. Called and spoke to patient's and explained the above. She was very thankful. Verquvo 5 mg every day Qty 14 Lot- [id number] EXP-04/15/2022 [id number] Telephone encounter Note* Telephone Encounter - Lenin Ramirez MD - 09/01/2021 1:03 PM EDT Thank you. Is there a chance we could send Ed 2 weeks of the 2.5 dose followed by 2 weeks of the 5.0 dose. If he tolerates that then we can work on the prescription. I did speak with the rep at the [facility] last week and he assured me they have a very generous' [employer] program. [id number] Miscellaneous Notes* Telephone Encounter - Lenin Ramirez MD - 09/01/2021 1:03 PM EDT Thank you. Is there a chance we could send Ed 2 weeks of the 2.5 dose followed by 2 weeks of the 5.0 dose. If he tolerates that then we can work on the prescription. I did speak with the rep at the [facility] last week and he assured me they have a very generous' [employer] program. * Telephone Encounter - Rachel Strange MA - 09/01/2021 12:27 PM EDT Once rx is sent and signed, I will call pharmacy and check roque. I also reached out to the rep, will wait to hear a response regarding assistance with the drug. Samples are available of this drug though at [facility], if needed. * Telephone Encounter - Dee Winston RN - 09/01/2021 12:22 PM EDT ----- Message from Lenin Ramirez MD sent at 09/01/2021 12:01 PM EDT ----- Ed's chest x-ray does demonstrate small effusions but nothing which is changed. It also demonstrates fluid overload. I am hopeful that he can withdraw enough fluid to make him more comfortable. 1 medicine we might be able to try would be Verquvo which she would like to tolerate and would not affecthis blood pressure. Since this is new is likely very expensive. Could you asked Leroy lemus you looking into any way to get it for him. Starting dose is 2.5 mg for 2 weeks then increase to5 mg daily. documented in this [id number] Telephone encounter Note* Telephone Encounter - Rachel Strange MA - 09/01/2021 12:27 PM EDT Once rx is sent and signed, I will call pharmacy and check roque. I also reached out to the rep, will wait to hear a response regarding assistance with the drug. Samples are available of this drug though at [facility], if needed. [id number] Telephone encounter Note* Telephone Encounter - Dee Winston RN - 09/01/2021 12:22 PM EDT ----- Message from Lenin Ramirez MD sent at 09/01/2021 12:01 PM EDT ----- Ed's chest x-ray does demonstrate small effusions but nothing which is changed. It also demonstrates fluid overload. I am hopeful that he can withdraw enough fluid to make him more comfortable. 1 medicine we might be able to try would be Verquvo which she would like to tolerate and would not affecthis blood pressure. Since this is new is likely very expensive. Could you asked Leroy lemus you looking into any way to get it for him. Starting dose is 2.5 mg for 2 weeks then increase to5 mg daily. [id number] Patient's home Progress note* Actions Call made to Dr Moreland' off ice, and spoke with HALEY Price. She was informed of the pt's weight gain from 191lbs on 08/26/21 to 205lbs today 09/07/21. The pt's diuretics, overall pitting edema, HD, and CHF were discussed. She states she will call Dr Moreland and then reach out to the pt or his . documented in this encounter [id number] Evaluation + Plan note* Assessment & Plan Note - Lenin Ramirez MD - 08/17/2021 12:40 PM EDTAssociated Problem(s): Essential hypertension His blood pressure is excellent on his current regimen. I made no changes today. [id number] Evaluation + Plan note* Assessment & Plan Note - Lenin Ramirez MD - 08/17/2021 12:40 PM EDTAssociated Problem(s): Coronary artery disease involving [place] coronary artery of [place] heart without angina pectoris He has no ischemic changes on his EKG and no ischemic symptoms. [id number] Miscellaneous Notes* Assessment & Plan Note - Lenin Ramirez MD - 08/17/2021 12:40 PM EDTAssociated Problem(s): Essential hypertension His blood pressure is excellent on his current regimen. I made no changes today. * Assessment & Plan Note - Lenin Ramirez MD - 08/17/2021 12:40 PM EDT Associated Problem(s): Coronary artery disease involving [place] coronary artery of [place] heart without angina pectoris He has no ischemic changes on his EKG and no ischemic symptoms. * Assessment & Plan Note - Lenin Ramirez MD - 08/17/2021 12:39 PM EDT Associated Problem(s): Chronic systolic congestive heart failure (HCC) This gentleman certainly remains a challenge given his multiple medical problems and advancing age.He clearly has evidence of heart failure on exam which at present is not being controlled with guideline directed medical therapy and hemodialysis. Is unclear how much fluid is being withdrawn at dialysis although ideally his heart failure may be better controlled with more aggressive treatment. I did discuss the possibility of advanced heart failure therapy including LVAD implantation although he is uncertain whether he would like to proceed with this and is also very uncertain whether he would be a candidate. We made some minor adjustments to his medical regimen and will base any further ky luation on his response. Pending his echo on his next visit, he also may be a candidate for device implantation. documented in this [id number] Evaluation + Plan note* Assessment & Plan Note - Lenin Ramirez MD - 08/17/2021 12:39 PM EDT Associated Problem(s): Chronic systolic congestive heart failure (HCC) This gentleman certainly remains a challenge given his multiple medical problems and advancing age.He clearly has evidence of heart failure on exam which at present is not being controlled with guideline directed medical therapy and hemodialysis. Is unclear how much fluid is being withdrawn at dialysis although ideally his heart failure may be better controlled with more aggressive treatment. I did discuss the possibility of advanced heart failure therapy including LVAD implantation although he is uncertain whether he would like to proceed with this and is also very uncertain whether he would be a candidate. We made some minor adjustments to his medical regimen and will base any further ky luation on his response. Pending his echo on his next visit, he also may be a candidate for device implantation. [id number] History of Present illness Narrative* Lenin Ramirez MD - 08/17/2021 12:31 PM EDT I saw Minh Gonzalez in follow up in the office on 08/17/21. Ed is had a very difficult time since I last saw him. His Pleurx catheter recently stopped draining and was removed last week. Unfortunately as the catheter drainage slowed, his shortness of breath and exertion worsen. He has had no orthopnea or PND however has been experiencing fairly profound fatigue and decreased exercise tolerance. He is tolerating hemodialysis fairly well with no orthostatic symptoms, syncope or anginal-like chest discomfort. He remains extremely compliant with his medications which she appears to tolerate verywell. Review of Systems: Documented in Medical Record Physical Exam Vital Signs: Blood Pressure (Abnormal) 114/53 Pulse 85 Height 5' 7 Weight 86.6 kg (191 lb) Oxygen Saturation 99% Body Mass Index 29.91 kg/m General: No acute distress, alert, and oriented x3. Skin: Normal turgor, well-hydrated, HEENT: Normocephalic,EOMI Neck: Supple, no bruits Cardiovascular: Regular rate and rhythm. No murmurs gallops or rubs. No JVD noted. No peripheral edema noted. Respiratory: Clear to auscultation and percussion, rhonchi or wheezes. Bibasilar rales noted. Abdominal: Soft, nontender, nondistended, without masses or bruits. Extremities : No clubbing or cyanosis. Pulses intact Neurological: Cranial nerves grossly intact. No focal neurological deficits noted. Psych: Normal mood and affect Allergy Information: I have reviewed the patient's allergies. Penicillins, Amlodipine, Ec aspirin, and Prednisone Home Medications: Current Outpatient Medications: acetaminophen (TYLENOL) 325 MG tablet, Take 650 mg by mouth every 4 (four) hours as needed for pain., Disp: , Rfl: albuterol (PROVENTIL) 2.5 mg /3 mL (0.083 %) nebulizer solution, Take 2.5 mg by nebulization 2 (two) times a day as needed for wheezing And as needed ., Disp: , Rfl: allopurinoL (ZYLOPRIM) 100 MG tablet, Take 1 (one) tablet (100 mg total) by mouth daily ., Disp: 90tablet, Rfl: 3 amiodarone (CORDARONE) 100 MG tablet, Take 1 (one) tablet (100 mg total) by mouth daily ., Disp: 90tablet, Rfl: 3 apixaban (Eliquis) 5 mg Tab, Take 1 (one) tablet (5 mg total) by mouth 2 (two) times a day ., Disp:56 tablet, Rfl: 0 ASCORBATE CALCIUM (VITAMIN C ORAL), Take 500 mg by mouth daily., Disp: , Rfl: ASPIRIN ORAL, Take 81 mg by mouth daily Doing for a month post knee repalcement ., Disp: , Rfl: carvediloL (COREG) 6.25 MG tablet, Take 1 (one) tablet (6.25 mg total) by mouth 2 (two) times a day., Disp: 180 tablet, Rfl: 3 ferrous gluconate (FERGON) 246 (28 FE) MG tablet, Take 65 mg by mouth daily with breakfast ., Disp:, Rfl: fluticasone propionate (FLONASE) 50 mcg/actuation nasal spray, Instill 2 sprays into each nostril daily ., Disp: , Rfl: furosemide (LASIX) 40 MG tablet, Take 1 (one) tablet (40 mg total) by mouth 2 (two) times a day ., Disp: 180 tablet, Rfl: 3 glycopyrrolate-formoteroL (Bevespi Aerosphere) 9-4.8 mcg HFAA, Inhale 2 puffs 2 (two) times a day ., Disp: , Rfl: guaiFENesin (MUCINEX) 600 mg 12 hr tablet, Take 600 mg by mouth 2 (two) times a day ., Disp: , Rfl: MAGNESIUM OXIDE (MAG-OXIDE ORAL), Take 400 mg by mouth 2 (two) times a day , Disp: , Rfl: MULTIVITAMIN ORAL, Take 1 tablet by mouth daily., Disp: , Rfl: nitroGLYCERIN (NITROSTAT) 0.4 MG SL tablet, Place 1 (one) tablet (0.4 mg total) under the tongue every 5 (five) minutes as needed for chest pain ., Disp: 25 tablet, Rfl: 4 omeprazole (PRILOSEC) 20 MG capsule, Take 1 (one) capsule (20 mg total) by mouth daily to prevent/treat heartburn ., Disp: 90 capsule, Rfl: 3 OXYGEN-AIR DELIVERY SYSTEMS MISC, Administer 3 L into one nostril as needed (sob) ., Disp: , Rfl: rosuvastatin (Crestor) 10 MG tablet, Take 1 (one) tablet (10 mg total) by mouth at bedtime Recent increase per Pcp from 5 mg ., Disp: 90 tablet, Rfl: 3 sacubitriL-valsartan (ENTRESTO) 24-26 mg per tablet, Take 1 (one) tablet by mouth 2 (two) times a day ., Disp: 180 tablet, Rfl: 3 sertraline (ZOLOFT) 50 MG tablet, Take 50 mg by mouth daily ., Disp: , Rfl: spironolactone (ALDACTONE) 25 MG tablet, 1/2 tablet daily ., Disp: 45 tablet, Rfl: 3 epoetin anabel (EPOGEN,PROCRIT) 10,000 unit/mL injection, Inject 10,000 Units under the skin once ., Disp: , Rfl: UNABLE TO FIND, Take 1 tablet by mouth daily Tart girard tablets ., Disp: , Rfl: EKG: Normal sinus rhythm with sinus arrhythmia, possible old anterior MD, nonspecific T wave changes. Assessment/Plan: Chronic systolic congestive heart failure (HCC) This gentleman certainly remains a challenge given his multiple medical problems and advancing age.He clearly has evidence of heart failure on exam which at present is not being controlled with guideline directed medical therapy and hemodialysis. Is unclear how much fluid is being withdrawn at dialysis although ideally his heart failure may be better controlled with more aggressive treatment. I did discuss the possibility of advanced heart failure therapy including LVAD implantation although he is uncertain whether he would like to proceed with this and is also very uncertain whether he would be a candidate. We made some minor adjustments to his medical regimen and will base any further ky luation on his response. Pending his echo on his next visit, he also may be a candidate for device implantation. Coronary artery disease involving [place] coronary artery of [place] heart without angina pectoris He has no ischemic changes on his EKG and no ischemic symptoms. Essential hypertension His blood pressure is excellent on his current regimen. I made no changes today. documented in this [id number] Patient's home Progress note* Actions Pt had his pleurex drains re moved last week. Sites are CDI open to air. Pt was started on new medication to assist with sleep and some restless leg problems he has been having at night. [facility] plan is to make 2 more visits over the next 2 weeks and then discharge. documented in this encounter [id number] History of Present illness Narrative* Niurka Santana PA-C - 08/03/2021 10:45 AM EDT Spoke to Mrs Gonzalez over the phone to review recent CT results for her and plan to remove both of his pleural catheters as they have not been putting out any drainage for quite some time. Tentative plan for next . She verbalized understanding and was agreeable. documented in this [id number] Patient's home Progress note* Actions Call placed to Dr Juarez off ice during visit to make sure Dr Sparks's office was aware that the pt had a CT completed last week per their orders. Spoke with B, nurse of Dr Juarez. She was going to notify the PA's after they got out of surgery. A call was made to the pt later today to see if anyone had reached out to them from Dr Sparks's office. No had called them. Another call made to Dr Sparks's office, but the office is closed. No voicemail available for the nurse line. Only antichecking iron worker Nilesh. Another call will be made tomorrow to make them aware that 0ml of drainage came out of both sides today, and that the pt states he is having difficulty breathing. It's like it was before they put these things in. Pt's lungs are clear, but his performance is diminished. The pt is unable to perform as well as he was on his incentive spirometer. documented in this encounter [id number] Patient's home Progress note* Actions Pleurex catheters were not d rained today. The pt has a f/u appt with the surgeon in 2 days to discuss the possiblity of removing them d/t the drains not putting out any drainage over the last 3 weeks. documented in this encounter [id number] Miscellaneous Notes* Telephone Encounter - Lima Beasley TECHNOLOGIST - 04/29/2021 2:34 PM EST Pt needs samples of Eliquis 5mg mailed to him documented in this [id number] History of Present illness Narrative* Jalil Sparks MD - 02/03/2021 11:23 AM EST PROGRESS NOTE Assessment and Plan: Continue with draining bilateral pleurx catheters BID at this point. He has taken excellent recordsof his output and will continue to do so. I will titrate down the frequency of drainages as he has less output. Once he no longer has output then I will plan to remove each drain accordingly under MAC sedation. Jalil Sparks Subjective: Minh Gonzalez is a 75 y.o. male with history of bilateral pleural effusions due to CHF and CKD. He has had multiple thoracentesis all of which drained liters of fluid yet his lung never expands confirming that it is trapped and he would not benefit from a pleurodesis nor would he tolerated decortication. Therefore, on January 19 he underwent bilateral he underwent bilateral Pleurx catheter placement and is here to see me for his normal postop visit. He is without any complaints and has been draining his catheters well with the help of home health. He has not yet required dialysis and continues to take diuretics. 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 Coronary artery disease FSGS (focal segmental glomerulosclerosis) Hyperlipidemia Hypertension Myocardial infarction ([facility]) NYHA class 4 heart failure with reduced ejection fraction ([facility]) LVEF 30% MARCELO on CPAP 2018 Past Surgical History: Procedure Laterality Date CABG N/A 09/03/2020 Procedure: CORONARY ARTERY BYPASS GRAFT; Surgeon: Mil Dee MD; Location: [facility] [place] Main OR; Service: Cardiothoracic CARDIAC CATHETERIZATION N/A 08/11/2014 Procedure: Left Heart Cath Possible PTCA/Stent; Surgeon: Lenin Ramirez MD; Location: [facility] [place] [facility] EDUCATION RN; Service: CARDIAC CATHETERIZATION Right 12/31/2014 Procedure: Left Heart Cath Possible PTCA/Stent; Surgeon: Ranulfo Cobb MD; Location: [facility] [place] EDUCATION RN; Service: CARDIAC CATHETERIZATION 08/11/2014 EF: 55% CARDIAC CATHETERIZATION 11/06/2006 EF: 45% CARDIAC CATHETERIZATION 08/09/2005 EF: 50% CARDIAC CATHETERIZATION 07/08/2005 EF: 45% CARDIAC CATHETERIZATION 12/31/2014 EF: 55% CORONARY ANGIOPLASTY WITH STENT PLACEMENT 08/09/2005 NORM- CX, RCA CORONARY ANGIOPLASTY WITH STENT PLACEMENT 07/08/2005 NORM- RCA CORONARY STENT PLACEMENT FOOT SURGERY Right hemodialysis fistula graft placement 12/14/2020 INSERTION PLEURAL CATHETER Right 01/18/2021 Procedure: RIGHT PLEUR X CATHETER PLACEMENT; Surgeon: Jalil Sparks MD; Location: [facility] [place] HYBRID OR; Service: Cardiothoracic INSERTION PLEURAL CATHETER Left 01/19/2021 Procedure: LEFT PLEUR X CATHETER PLACEMENT; Surgeon: Jalil Sparks MD; Location: [facility] [place] Main OR; Service: Cardiothoracic INTERVENTIONAL RADIOLOGY PROCEDURE 08/27/2020 IR THORACENTESIS LT 08/27/2020 Jesus Choudhary MD [facility] [place] INTERVENTION RAD INTERVENTIONAL RADIOLOGY PROCEDURE 08/27/2020 IR THORACENTESIS RT 08/27/2020 Jesus Choudhary MD [facility] [place] INTERVENTION RAD INTERVENTIONAL RADIOLOGY PROCEDURE 10/27/2020 IR THORACENTESIS LT 10/27/2020 Varun Kathleen MD [facility] [place] INTERVENTION RAD INTERVENTIONAL RADIOLOGY PROCEDURE 10/27/2020 IR THORACENTESIS RT 10/27/2020 Varun Kathleen MD [facility] [place] INTERVENTION RAD JOINT REPLACEMENT knee replacement KNEE SURGERY RENAL BIOPSY TONSILLECTOMY Allergies: Penicillins, Amlodipine, Ec aspirin, and Prednisone Review of Systems Constitutional: Negative for fever, chills, weight loss, and malaise/fatigue. Cardiovascular: Negative for chest pain, palpitations, orthopnea and claudication. Respiratory: Negative for cough, sputum production, shortness of breath, or hemoptysis Gastrointestinal: Negative for constipation or blood in stool, nausea, or vomiting, or loss of appetite. Neurological: Negative for dizziness, tingling, focal weakness, loss of consciousness, or headaches. Physical Exam PACU Vitals 02/03/21 1057 BP: (!) 111/58 Pulse: 75 Temp: 97.3 F (36.3 C) SpO2: 96% PainSc: 0-No pain GENERAL: Alert. In a wheelchair HEART: regular rate and rhythm. No murmurs, rubs or gallops. LUNGS: Breathing non-labored. BL Pluerx catheters in place and sutures removed. No signs of infection. LYMPH NODES: No cervical or supraclavicular lymphadenopathy is noted. Imaging: CXR reviewed today. Jalil Sparks MD [facility] [address], [address] [place] [address] Office: [phone] [email or web address] documented in this [id number] History of Present illness Narrative* Niurka Santana PA-C - 01/27/2021 4:02 PM EST Returned call to Jai Gallegos after message left with our office in regards to volume of output from both PluerX catheters. Based on this I asked her to again drain both catheters on Monday and touch base with us in regards to the volumes. If both continue to demonstrate high output we will likely change the frequency of drainage. In regards to the area of skin she was modestly concerned with she isgoing to take a picture when she sees Mr. Gonzalez on Monday. We do have follow up scheduled next week, but if she continues to have concerns or the patient does prior to the appointment they can contact our office. documented in this [id number] Miscellaneous Notes* Addendum Note - Erick Devi MD - 01/18/2021 12:11 PM EST Addendum created 01/18/21 1211 by Erick Devi MD Attestation recorded in Intraprocedure, Intraprocedure Attestations filed documented in this [id number] Procedure anesthesia Narrative * Procedure Summary Procedure Name Responsible Anesthesiologist Anesthesia Start Time Anesthesia Stop Time RIGHT PLEUR X CATHETER PLACEMENT (Right ) Erick Devi MD 01/18/21 0802 01/18/21 0900 Events Date Time Event Comment 01/18/2021 0729 0729 AN Equip Check 0802 An Start 0805 Patient Verification 0806 An Start Data 0854 an stop data 0859 Handoff I completed my SBAR handoff to the receiving nurse in the PACU/unit. 0900 An Stop Meds * Agents No agents on file. * Blood No blood administrations on file. Lines, Drains, and Airways Type Details Placement Removal Hemodialysis Fistula/Graft Access (unknown); (unknown); Fistula; Left; Forearm 01/18/21 0801 by Octavia Ibrahim RN Wound 09/03/20; 0848; Surg ical Wou; Chest; DRESSING 4 X 14IN COVADERM (x1), SPONGE 4 X 4IN 6-PLY DRAIN STERL (x2) 09/03/20 0848 by Hong Rehman RN Wound 10/27/20; 0935; Othe r (Thoracentesis); Back; Left 10/27/20 0935 by Sachin Milan RN Wound 10/27/20; 0936; Othe r (thoracentesis); Back; Right; exofin, 4x4s and tegaderm 10/27/20 0936 by Sachin Milan RN Peripheral IV Placement Date: 01/18/21; Placement Time: 0640; Orientation: Right; Location: Antecubital; Site Prep: Chlorhexidine ; Local Anes: None; Inserted by: Tabby; Patient Tolerance: Tolerated well 01/18/21 0640 by Octavia Ibrahim RN Chest Tube Placement Date: 01/18/21; Placement Time: 0840; Inserted by: Dr. Sparks; Tube Number: 1; Orientation: Right, Lateral; Location: Midaxillary 01/18/21 0840 by Radha Lopez RN Chest Tube Placement Date: 09/03/20; Placement Time: 1025; Tube Number: 1; Orientation: Anterior; Location: Mediastinal; Size: 28 Fr.; Removal Date: 01/18/21; Removal Time: 83909/03/20 1025 by Hong Rehman RN 01/18/21 0840 by Radha Lopez RN Chest Tube Placement Date: 09/03/20; Placement Time: 1024; Tube Number: 2; Orientation: Anterior; Location: Mediastinal; Size: 28 Fr.; Removal Date: 01/18/21; Removal Time: 83609/03/20 1025 by Hong Rehman RN 01/18/21 0837 by Radha Lopez RN documented in this encounter [id number] Surgical operation note* Anesthesia Postprocedure Evaluation - Erick Devi MD - 01/18/2021 8:59 AM EST Anesthesia Post Evaluation * * Refer to nursing documentation for PACU vitals * * Patient participation: patient participated Mental status: awake Pain management: adequate Anesthetic complications: no Nausea / vomiting: no Respiratory / airway status: nasal cannula Postoperative hydration: hemodynamically stable * Anesthesia Preprocedure Evaluation - Erick Devi MD - 01/17/2021 10:11 AM EST ANESTHESIA PREPROCEDURE EVALUATION Anesthesia Plan ASA: 4 Type: MAC Airway: nasal cannula Induction: intravenous Comment: 09/03/20, CABG, mac 3, gr 1 11/3, Hg 8, Cr 3.05, had recent AV fistula created Lasix Amiodarone Metoprolol Valsartan 09/08/20, Echo, EF 33%, mild MR, mild TR, pulm HTN, RVSP 58 mmHg 08/27/20, carotid US, 1-49% CATHY and LICA 08/27/20, PFTs, severe obstruction, severe restriction, FEV 1 0.84, 31% of predicted. Anesthetic plan and risks as outlined in the consent discussed with: patient and spouse Use of blood products discussed with: patient and spouse Plan discussed with: Anesthesiologist Physical Exam Airway Mallampati: I TM Distance: >3 FB Neck ROM: full Mouth opening: >3 FB Cardiovascular Rhythm: regular Neurological Mental Status: alert Dental edentulous (upper and lower) upper: full lower: full Review of Systems / Medical History - Reviewed: ECG, patient summary, anesthesia history, nursing notes, medical history, H&P and labs / results - No history of anesthetic complications Pulmonary Comment: BILATERAL PLEURAL EFFUSIONS Positive: severe COPD sleep apnea Cardiovascular Positive: hypertension past MD, CAD, CABG/stent, dysrhythmias (VTACH, PAF) CHF, hyperlipidemia, cardiomyopathy pulmonary hypertension Gastrointestinal / Hepatic / Renal Positive: renal disease and CRI Endocrine / Musculoskeletal Positive: anemia documented in this [id number] History of Present illness Narrative* Jalil Spakrs MD - 01/13/2021 4:12 PM EDT Name: Minh Gonzalez : 1945 Date: 01/13/21 Provider: Jalil Sparks MD Referring Provider: Park Hawk CNP PCP: Zack Olmos MD Chief Complaint: Shortness of breath associated with bilateral pleural effusions. Chief Complaint: Thank you Dr. Park Hawk CNP for referring Minh Gonzalez in consultation for recurrent bilateral pleural effusions. Assessment and Plan: Mr. Saunders is a 75-year-old male with a history of chronic kidney disease and congestive heart failure who has been referred for chronic bilateral pleural effusions. The etiology of this is likely due to his heart failure and his inability to be properly diuresed due to kidney failure. However, dueto the chronic nature I am concerned that his lungs are trapped bilaterally and can appreciate a rind on the CT imaging from today. This in combination with the speed at which the fluid accumulates further confirms that suspicion. I have reviewed his most recent echocardiogram which reveals an ejection fraction of 30%. He would benefit from placement of bilateral Pleurx catheters to help with drainage of the fluid until he is further medically optimized. Additionally, this will help with reexpansion of his trapped lungs bilaterally. Because he is on Eliquis we will plan to hold that and place a right-sided Pleurxcatheter on January 18 and have him admitted overnight. The next day we will plan for a left-sided Pleurx catheter placement and hopefully discharge that same day. I explained both the concept and how to care for these catheters to the patient, his , and his son via speaker phone. They expressed understanding and agreed to continue on with the current plan. HPI: Mr. Gonzalez is a 75 y.o. year old male with an extensive past medical history involving coronary artery disease status post CABG in August of this year with Dr. Dee, congestive heart failure, A. fib requiring Eliquis, hypertension, chronic kidney disease who presents with a prolonged history of bilateral pleural effusions. He has undergone multiple thoracentesis bilaterally draining over a liter of fluid from each side most recently having one done on the left side. Each time this is done he has to hold his Eliquis and the fluid returns quickly. He does admit to some improvement in his symptoms. Currently he is undergoing constant titration of his diuretics which is further complicated by his kidney disease. He recently had a left upper extremity AV fistula created and is waiting to start dialysis soon. Today he is accompanied by his and is sitting up in a wheelchair. He most recently had a left-sided thoracentesis on 11 January for which he held his Eliquis but hassince resumed taking. His symptoms currently are minimal but he does admit to already feeling as though the fluid has returned. Patient's Medications New Prescriptions No medications on file Previous Medications ALBUTEROL (PROVENTIL) 2.5 MG /3 ML (0.083 %) NEBULIZER SOLUTION Take 2.5 mg by nebulization 2 (two)times a day And as needed . ALLOPURINOL (ZYLOPRIM) 100 MG TABLET Take 1 (one) tablet (100 mg total) by mouth daily Start: 09/11/20. AMIODARONE (PACERONE) 200 MG TABLET Take 1 (one) tablet (200 mg total) by mouth daily . APIXABAN (ELIQUIS) 5 MG TAB Take 1 (one) tablet (5 mg total) by mouth 2 (two) times a day [facility] [id number] [facility] [id number] [facility] [address] [place] [id number] . ASCORBATE CALCIUM (VITAMIN C ORAL) Take 500 mg by mouth daily. ASPIRIN ORAL Take 81 mg by mouth daily Doing for a month post knee repalcement . FERROUS GLUCONATE (FERGON) 246 (28 FE) MG TABLET Take 65 mg by mouth daily with breakfast . FLUTICASONE PROPIONATE (FLONASE) 50 MCG/ACTUATION NASAL SPRAY Instill 2 sprays into each nostril daily . FUROSEMIDE (LASIX) 40 MG TABLET Take 1 (one) tablet (40 mg total) by mouth 2 (two) times a day . GLYCOPYRROLATE-FORMOTEROL (BEVESPI AEROSPHERE) 9-4.8 MCG HFAA Inhale 2 puffs 2 (two) times a day . GUAIFENESIN (MUCINEX) 600 MG 12 HR TABLET Take 600 mg by mouth 2 (two) times a day . MAGNESIUM OXIDE (MAG-OXIDE ORAL) Take 400 mg by mouth 2 (two) times a day METOPROLOL SUCCINATE (TOPROL-XL) 25 MG 24 HR TABLET Take 1 (one) tablet (25 mg total) by mouth every morning . MULTIVITAMIN ORAL Take 1 tablet by mouth daily. NITROGLYCERIN (NITROSTAT) 0.[address] 1 (one) tablet (0.4 mg total) under the tongue every 5 (five) minutes as needed for chest pain . OMEPRAZOLE (PRILOSEC) 20 MG CAPSULE Take 1 (one) capsule (20 mg total) by mouth daily as needed . OXYGEN-AIR DELIVERY SYSTEMS MISC by Miscellaneous route . ROSUVASTATIN (CRESTOR) 10 MG TABLET Take 1 (one) tablet (10 mg total) by mouth at bedtime Recent increase per Pcp from 5 mg . SACUBITRIL-VALSARTAN (ENTRESTO) 24-26 MG PER TABLET Take 1 (one) tablet by mouth 2 (two) times a day . SERTRALINE (ZOLOFT) 50 MG TABLET Take 50 mg by mouth daily . SODIUM ZIRCONIUM CYCLOSILICATE (LOKELMA) 10 GRAM PACKET 10 g once . UNABLE TO FIND 1 tablet daily Tart girard tablets . Modified Medications No medications on file Discontinued Medications No medications on file Allergies Allergen Reactions Penicillins Other (See Comments) High fever Amlodipine Itching Ec Aspirin Hives Only the EC aspirin Prednisone Heart race 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 Coronary artery disease FSGS (focal segmental glomerulosclerosis) Hyperlipidemia Hypertension Myocardial infarction (HCC) 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) LVEF 30% MARCELO on CPAP 2018 Past Surgical History: Procedure Laterality Date CABG N/A 09/03/2020 Procedure: CORONARY ARTERY BYPASS GRAFT; Surgeon: Mil Dee MD; Location: [facility] [place] Main OR; Service: Cardiothoracic CARDIAC CATHETERIZATION N/A 08/11/2014 Procedure: Left Heart Cath Possible PTCA/Stent; Surgeon: Lenin Ramirez MD; Location: [facility] [place] EDUCATION RN; Service: CARDIAC CATHETERIZATION Right 12/31/2014 Procedure: Left Heart Cath Possible PTCA/Stent; Surgeon: Ranulfo Cobb MD; Location: [facility] [place] EDUCATION RN; Service: CARDIAC CATHETERIZATION 08/11/2014 EF: 55% CARDIAC CATHETERIZATION 11/06/2006 EF: 45% CARDIAC CATHETERIZATION 08/09/2005 EF: 50% CARDIAC CATHETERIZATION 07/08/2005 EF: 45% CARDIAC CATHETERIZATION 12/31/2014 EF: 55% CORONARY ANGIOPLASTY WITH STENT PLACEMENT 08/09/2005 NORM- CX, RCA CORONARY ANGIOPLASTY WITH STENT PLACEMENT 07/08/2005 NORM- RCA CORONARY STENT PLACEMENT FOOT SURGERY Right hemodialysis fistula graft placement 12/14/2020 INTERVENTIONAL RADIOLOGY PROCEDURE 08/27/2020 IR THORACENTESIS LT 08/27/2020 Jesus Choudhary MD [facility] [place] INTERVENTION RAD INTERVENTIONAL RADIOLOGY PROCEDURE 08/27/2020 IR THORACENTESIS RT 08/27/2020 Jesus Choudhary MD [facility] [place] INTERVENTION RAD INTERVENTIONAL RADIOLOGY PROCEDURE 10/27/2020 IR THORACENTESIS LT 10/27/2020 Varun Kathleen MD [facility] [place] INTERVENTION RAD INTERVENTIONAL RADIOLOGY PROCEDURE 10/27/2020 IR THORACENTESIS RT 10/27/2020 Varun Kathleen MD [facility] [place] [facility] INTERVENTION RAD JOINT REPLACEMENT knee replacement KNEE SURGERY RENAL BIOPSY TONSILLECTOMY Family History Problem Relation Age of Onset Stroke Mother Heart attack Father 54 Heart failure Father Hodgkin's lymphoma Father Social History Socioeconomic History Marital status: Spouse name: Not on file Number of children: Not on file Years of education: Not on file Highest education level: Not on file Occupational History Not on file Tobacco Use Smoking status: Former Smoker Quit date: 03/13/1989 Years since quittin.8 Smokeless tobacco: Never Used Vaping Use Vaping Use: Never used Substance and Sexual Activity Alcohol use: Yes Alcohol/week: 1.0 standard drink Types: 1 Cans of beer per week Comment: about q3mo Drug use: No Sexual activity: Yes Partners: Female Other Topics Concern Not on file Social History Narrative Not on file Social Determinants of Health Financial Resource Strain: Difficulty of Paying Living Expenses: Not on file Food Insecurity: Worried About Running Out of Food in the Last Year: Not on file Ran Out of Food in the Last Year: Not on file Transportation Needs: Lack of Transportation (Medical): Not on file Lack of Transportation (Non-Medical): Not on file Physical Activity: Days of Exercise per Week: Not on file Minutes of Exercise per Session: Not on file Stress: Feeling of Stress : Not on file Social Connections: Frequency of Communication with Friends and Family: Not on file Frequency of Social Gatherings with Friends and Family: Not on file Attends Roman [employer] Services: Not on file Active Member of Clubs or Organizations: Not on file Attends Club or Organization Meetings: Not on file Marital Status: Not on file Housing Stability: Unable to Pay for Housing in the Last Year: Not on file Number of Places Lived in the Last Year: Not on file Unstable Housing in the Last Year: Not on file Review of Systems Constitutional: Negative for activity change, appetite change, chills, fatigue and fever. HENT: Negative for congestion, postnasal drip, sinus pressure, sinus pain, tinnitus and trouble swallowing. Respiratory: Positive for dyspnea on exertion, shortness of breath. Negative for wheezing. Cardiovascular: Positive for bilateral lower and upper extremity pitting edema. Negative for chest pain, palpitations. Gastrointestinal: Negative for abdominal distention, abdominal pain, anal bleeding, constipation, diarrhea, nausea and vomiting. Musculoskeletal: Negative for arthralgias, back pain, gait problem and joint swelling. Skin: Negative for bruising or rash Neurological: Negative for tremors, syncope, weakness, light-headedness and headaches. Hematological: Negative for adenopathy. Does not bruise/bleed easily. Psychiatric/Behavioral: Negative. BP 146/73 (BP Location: Right arm, Patient Position: Sitting, BP Cuff Size: Adult) Pulse 68 Temp 97.6 F (36.4 C) (Infrared) Ht 5' 7 SpO2 91% BMI 29.76 kg/m Body mass index is 29.76 kg/m . Ht Readings from Last 1 Encounters: 01/13/21 5' 7 Wt Readings from Last 1 Encounters: 01/04/21 86.2 kg (190 lb) Gen: Frail sitting in a wheelchair Head: No signs of injury. Mouth/Throat: Mucous membranes are moist. No tonsillar exudate. Oropharynx is clear. Pharynx is normal. Eyes: PERRLA, no discharge from b/l eye. Neck: Normal range of motion. Neck supple. No rigidity or adenopathy. CV: Normal rate, regular rhythm, S1 normal and S2 normal. Resp: Decreased breath sounds bilaterally. Abd: Soft, nttp, BS+. No distention, no rebound tenderness or guarding. No masses. Neurological: No focal neurological deficits noted. Skin: Not diaphoretic, no rashes. Extremities: Bilateral upper and lower extremity 2+ pitting edema. Left upper extremity AV fistula with palpable thrill. Radiology: I have personally reviewed recent imaging and my interpretation is confirmation of bilateral pleural effusions. The left side has already reaccumulated but there is a much larger amount offluid on the right. ECO Jalil Sparks MD [facility] [address], [address] [place] [address] Office: [phone] [email or web address] [facility] hospitalAgent Partner documented in this [id number] Miscellaneous Notes* Assessment & Plan Note - Park Hawk CNP - 01/04/2021 4:35 PM EDT Associated Problem(s): Chronic systolic congestive heart failure (HCC) Ed continues to have ongoing issues with fluid overload. He had a right thoracentesis on 1at [facility] with 550 mL removed. He has had increasing dyspnea on exertion over the past week and had a chest x- ray on 01/01/2021. He was notified today that the pleural effusions. [facility] contacted and Ed will have a thoracentesis 01/05/2021 at 1230. He has not had a dose of Eliquis since Monday in anticipation of the thoracentesis. Discussed with Dr. Ramirez. Will try to arrange for Ed to have an appointment with Dr. Michael Quinn for longer term management of the repeat bilateral pleural effusions. Ed will increase lasix to 80 mg twice daily for 2-3 to assist his symptom resolution. * Assessment & Plan Note - Park Hawk CNP - 01/04/2021 4:33 PM EDT Associated Problem(s): Stage 4 chronic kidney disease (HCC) Ed has AV fistula constructed 12/14/2020. The wait time for beginning hemodialysis at some point after 2 months of placement. documented in this [id number] History of Present illness Narrative* Park Hawk CNP - 01/04/2021 4:28 PM EDT [facility] [address] [facility] [address] [facility] [id number] Assessment & Plan: Stage 4 chronic kidney disease (HCC) Ed has AV fistula constructed 12/14/2020. The wait time for beginning hemodialysis at some point after 2 months of placement. Chronic systolic congestive heart failure (HCC) Ed continues to have ongoing issues with fluid overload. He had a right thoracentesis on 12/25/2020t [facility] with 550 mL removed. He has had increasing dyspnea on exertion over the past week and had a chest x- ray on 01/01/2021. He was notified today that the pleural effusions. [facility] contacted and Ed will have a thoracentesis 01/05/2021 at 1230. He has not had a dose of Eliquis since Monday in anticipation of the thoracentesis. Discussed with Dr. Ramirez. Will try to arrange for Ed to have an appointment with Dr. Michael Quinn for longer term management of the repeat bilateral pleural effusions. Ed will increase lasix to 80 mg twice daily for 2-3 to assist his symptom resolution. Orders Placed This Encounter Thoracentesis Subjective: Minh Gonzalez is a 75 y.o. male seen in the office today for Follow-up (go over Xray [place] SOB/ - Booster? 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 Ed states he has noticed an increased in a feeling of bloating and dyspnea on exertion over the past week since his last thoracentesis on 12/25/2020. 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 Coronary artery disease FSGS (focal segmental glomerulosclerosis) Hyperlipidemia Hypertension Myocardial infarction ([facility]) NYHA class 4 heart failure with reduced ejection fraction ([facility]) LVEF 30% MARCELO on CPAP 2018 Past Surgical History: Procedure Laterality Date CABG N/A 09/03/2020 Procedure: CORONARY ARTERY BYPASS GRAFT; Surgeon: Mil Dee MD; Location: [facility] Main OR; Service: Cardiothoracic CARDIAC CATHETERIZATION N/A 08/11/2014 Procedure: Left Heart Cath Possible PTCA/Stent; Surgeon: Lenin Ramirez MD; Location: [facility] EDUCATION RN; Service: CARDIAC CATHETERIZATION Right 12/31/2014 Procedure: Left Heart Cath Possible PTCA/Stent; Surgeon: Ranulfo Cobb MD; Location: [facility] EDUCATION RN; Service: CARDIAC CATHETERIZATION 08/11/2014 EF: 55% CARDIAC CATHETERIZATION 11/06/2006 EF: 45% CARDIAC CATHETERIZATION 08/09/2005 EF: 50% CARDIAC CATHETERIZATION 07/08/2005 EF: 45% CARDIAC CATHETERIZATION 12/31/2014 EF: 55% CORONARY ANGIOPLASTY WITH STENT PLACEMENT 08/09/2005 NORM- CX, RCA CORONARY ANGIOPLASTY WITH STENT PLACEMENT 07/08/2005 NORM- RCA CORONARY STENT PLACEMENT FOOT SURGERY Right hemodialysis fistula graft placement 12/14/2020 INTERVENTIONAL RADIOLOGY PROCEDURE 08/27/2020 IR THORACENTESIS LT 08/27/2020 Jesus Choudhary MD [facility] INTERVENTION RAD INTERVENTIONAL RADIOLOGY PROCEDURE 08/27/2020 IR THORACENTESIS RT 08/27/2020 Jesus Choudhary MD [facility] INTERVENTION RAD INTERVENTIONAL RADIOLOGY PROCEDURE 10/27/2020 IR THORACENTESIS LT 10/27/2020 Varun Kathleen MD [facility] INTERVENTION RAD INTERVENTIONAL RADIOLOGY PROCEDURE 10/27/2020 IR THORACENTESIS RT 10/27/2020 Varun Kathleen MD [facility] INTERVENTION RAD JOINT REPLACEMENT knee replacement KNEE SURGERY RENAL BIOPSY TONSILLECTOMY Family History Problem Relation Age of Onset Stroke Mother Heart attack Father 54 Heart failure Father Hodgkin's lymphoma Father Social History Tobacco Use Smoking status: Former Smoker Quit date: 03/13/1989 Years since quittin.8 Smokeless tobacco: Never Used Vaping Use Vaping Use: Never used Substance Use Topics Alcohol use: Yes Alcohol/week: 1.0 standard drink Types: 1 Cans of beer per week Comment: about q3mo Drug use: No Outpatient Medications as of 01/04/2021 Medication Sig albuterol (PROVENTIL) 2.5 mg /3 mL (0.083 %) nebulizer solution Take 2.5 mg by nebulization 2 (two)times a day And as needed . allopurinoL (ZYLOPRIM) 100 MG tablet Take 1 (one) tablet (100 mg total) by mouth daily Start: 09/11/20. (Patient taking differently: Take 100 mg by mouth 2 (two) times a day .) amiodarone (Pacerone) 200 MG tablet Take 1 (one) tablet (200 mg total) by mouth daily . apixaban (ELIQUIS) 5 mg Tab Take 1 (one) tablet (5 mg total) by mouth 2 (two) times a day [facility] [id number] [facility] [id number] [facility] 1016 ID [id number] . ASPIRIN ORAL Take 81 mg by mouth daily Doing for a month post knee repalcement . ferrous gluconate (FERGON) 246 (28 FE) MG tablet Take 65 mg by mouth daily with breakfast . fluticasone propionate (FLONASE) 50 mcg/actuation nasal spray Instill 2 sprays into each nostril daily . furosemide (LASIX) 40 MG tablet Take 1 (one) tablet (40 mg total) by mouth 2 (two) times a day . glycopyrrolate-formoteroL (Bevespi Aerosphere) 9-4.8 mcg HFAA Inhale 2 puffs 2 (two) times a day . guaiFENesin (MUCINEX) 600 mg 12 hr tablet Take 600 mg by mouth 2 (two) times a day . MAGNESIUM OXIDE (MAG-OXIDE ORAL) Take 400 mg by mouth 2 (two) times a day metoprolol succinate (TOPROL-XL) 25 MG 24 hr tablet Take 1 (one) tablet (25 mg total) by mouth every morning . MULTIVITAMIN ORAL Take 1 tablet by mouth daily. nitroGLYCERIN (NITROSTAT) 0.[address] 1 (one) tablet (0.4 mg total) under the tongue every 5 (five) minutes as needed for chest pain . omeprazole (PRILOSEC) 20 MG capsule Take 1 (one) capsule (20 mg total) by mouth daily as needed . rosuvastatin (Crestor) 10 MG tablet Take 1 (one) tablet (10 mg total) by mouth at bedtime Recent increase per Pcp from 5 mg . sacubitriL-valsartan (ENTRESTO) 24-26 mg per tablet Take 1 (one) tablet by mouth 2 (two) times a day . sertraline (ZOLOFT) 50 MG tablet Take 50 mg by mouth daily . sodium zirconium cyclosilicate (Lokelma) 10 gram packet 10 g once . UNABLE TO FIND 1 tablet daily Tart girard tablets . ASCORBATE CALCIUM (VITAMIN C ORAL) Take 500 mg by mouth daily. Allergies Allergen Reactions Penicillins Other (See Comments) High fever Amlodipine Itching Ec Aspirin Hives Only the EC aspirin Prednisone Heart race Review of Systems Constitutional: Positive for malaise/fatigue. Negative for diaphoresis, weight gain and weight loss. HENT: Negative for hearing loss, nosebleeds and tinnitus. Eyes: Negative for blurred vision and visual disturbance. Cardiovascular: Positive for leg swelling. Negative for chest pain, claudication, cyanosis, dyspneaon exertion, irregular heartbeat, near-syncope, orthopnea, palpitations, paroxysmal nocturnal dyspnea and syncope. Respiratory: Positive for shortness of breath. Negative for hemoptysis and snoring. Endocrine: Negative for cold intolerance and heat intolerance. Hematologic/Lymphatic: Does not bruise/bleed easily. Skin: Negative for flushing, poor wound healing and rash. Musculoskeletal: Negative for back pain, muscle weakness and myalgias. Gastrointestinal: Negative for abdominal pain, change in bowel habit, melena, nausea and vomiting. Genitourinary: Negative for decreased libido and hematuria. Neurological: Negative for loss of balance and numbness. Psychiatric/Behavioral: Negative for memory loss. The patient is not nervous/anxious. Objective: Physical Exam Vitals reviewed. Constitutional: Appearance: Normal appearance. He is well-developed. HENT: Head: Normocephalic. Nose: Nose normal. Mouth/Throat: Mouth: Mucous membranes are moist. Eyes: General: Lids are normal. Conjunctiva/sclera: Conjunctivae normal. Neck: Vascular: No carotid bruit or JVD. Cardiovascular: Rate and Rhythm: Normal rate and regular rhythm. Pulses: Normal pulses. Heart sounds: Normal heart sounds. No murmur heard. No friction rub. No gallop. Pulmonary: Effort: Pulmonary effort is normal. Breath sounds: Rales present. Comments: Bilateral crackles mid lobes to bases Abdominal: General: Bowel sounds are normal. Palpations: Abdomen is soft. There is no mass. Tenderness: There is no abdominal tenderness. Musculoskeletal: General: Normal range of motion. Right lower leg: Edema present. Left lower leg: Edema present. Comments: +1 lower leg edema Skin: General: Skin is warm. Findings: No rash. Neurological: Mental Status: He is alert and oriented to person, place, and time. Gait: Gait normal. Psychiatric: Behavior: Behavior normal. Vitals: Vitals: 01/04/21 1450 BP: (!) 132/57 BP Location: Right arm Patient Position: Sitting Pulse: 74 Weight: 86.2 kg (190 lb) Height: 5' 7 27 minutes spent with patient [id number] Follow Up Ordered: Return for Appointment as scheduled in February with [facility] in [place]. Park Hawk CNP * Demetrice Jain MA - 01/04/2021 3:04 PM EDT Review of Systems Constitutional: Negative for diaphoresis, malaise/fatigue, weight gain and weight loss. HENT: Negative for hearing loss, nosebleeds and tinnitus. Eyes: Negative for blurred vision and visual disturbance. Cardiovascular: Negative for chest pain, claudication, cyanosis, dyspnea on exertion, irregular heartbeat, leg swelling, near-syncope, orthopnea, palpitations, paroxysmal nocturnal dyspnea and syncope. Respiratory: Positive for shortness of breath. Negative for hemoptysis and snoring. Endocrine: Negative for cold intolerance and heat intolerance. Hematologic/Lymphatic: Does not bruise/bleed easily. Skin: Negative for flushing, poor wound healing and rash. Musculoskeletal: Negative for back pain, muscle weakness and myalgias. Gastrointestinal: Negative for abdominal pain, change in bowel habit, melena, nausea and vomiting. Genitourinary: Negative for decreased libido and hematuria. Neurological: Negative for loss of balance and numbness. Psychiatric/Behavioral: Negative for memory loss. The patient is not nervous/anxious. documented in this [id number] Miscellaneous Notes* Assessment & Plan Note - Lenin Ramirez MD - 12/17/2020 1:24 PM EDT Associated Problem(s): PAF (paroxysmal atrial fibrillation) (HCC) Fortunately, and remains in sinus rhythm. We may consider lowering his amiodarone dose further overthe next several months. * Assessment & Plan Note - Lenin Ramirez MD - 12/17/2020 1:23 PM EDT Associated Problem(s): Essential hypertension His blood pressure is adequate on his current regimen. He has been having some issues with sleep lately therefore I changed his Toprol to 25 mg in the a.m. only. I also recommended a trial of melatonin to assist with sleep. * Assessment & Plan Note - Lenin Ramirez MD - 12/17/2020 1:23 PM EDT Associated Problem(s): Chronic systolic congestive heart failure (HCC) He continues to struggle with fluid overload which is been challenging to treat given his renal insufficiency. Hopefully once he does begin hemodialysis this will be much easier to handle. * Assessment & Plan Note - Lenin Ramirez MD - 12/17/2020 1:22 PM EDT Associated Problem(s): Coronary artery disease involving [place] coronary artery of [place] heart without angina pectoris From ischemic issue Ed is doing quite well with no recurrent angina or other associated symptoms. No changes were made in his medicines. documented in this [id number] History of Present illness Narrative* Lenin Ramirez MD - 12/17/2020 1:21 PM EDT I saw Minh Gonzalez in follow up in the office on 12/17/20. At his certainly struggled over the past several months. He had issues with recurrent pleural effusion which required thoracentesis but fortunately this appears to have stabilized. He is also had some mild heart failure requiring at adjustments in his diuretic regimen. Unfortunately this also has caused worsening of his renal function. He recently underwent implantation of an AV fistula and is considering initiation of dialysis in [facility] several months. He has had no ischemic symptoms and remains fairly functional despite all his current issues. Review of Systems: Documented in Medical Record Physical Exam Vital Signs: Blood Pressure 129/77 (BP Location: Right arm) Pulse 63 Height 5' 7 Weight 87.5 kg (193 lb) Oxygen Saturation 90% Body Mass Index 30.23 kg/m General: No acute distress, alert, and oriented x3. Skin: Normal turgor, well-hydrated, HEENT: Normocephalic,EOMI Neck: Supple, no bruits Cardiovascular: Regular rate and rhythm. No murmurs gallops or rubs. No JVD. No peripheral edema noted. Respiratory: Clear to auscultation and percussion, no rales, rhonchi or wheezes Abdominal: Soft, nontender, nondistended, without masses or bruits. Extremities : No clubbing or cyanosis. Pulses intact. Neurological: Cranial nerves grossly intact. No focal neurological deficits noted. Psych: Normal mood and affect Allergy Information: I have reviewed the patient's allergies. Penicillins, Amlodipine, Ec aspirin, and Prednisone Home Medications: Outpatient Medications as of 12/17/2020 Medication Sig albuterol (PROVENTIL) 2.5 mg /3 mL (0.083 %) nebulizer solution Take 2.5 mg by nebulization 2 (two)times a day And as needed . allopurinoL (ZYLOPRIM) 100 MG tablet Take 1 (one) tablet (100 mg total) by mouth daily Start: 09/11/20. (Patient taking differently: Take 100 mg by mouth 2 (two) times a day .) amiodarone (Pacerone) 200 MG tablet Take 1 (one) tablet (200 mg total) by mouth daily . apixaban (ELIQUIS) 5 mg Tab Take 1 (one) tablet (5 mg total) by mouth 2 (two) times a day [facility] [id number] [facility] [id number] [facility] 1016 ID [id number] . ASCORBATE CALCIUM (VITAMIN C ORAL) Take 500 mg by mouth daily. ASPIRIN ORAL Take 81 mg by mouth daily Doing for a month post knee repalcement . ferrous gluconate (FERGON) 246 (28 FE) MG tablet Take 65 mg by mouth daily with breakfast . fluticasone propionate (FLONASE) 50 mcg/actuation nasal spray Instill 2 sprays into each nostril daily . furosemide (LASIX) 40 MG tablet Take 1 (one) tablet (40 mg total) by mouth 2 (two) times a day . glycopyrrolate-formoteroL (Bevespi Aerosphere) 9-4.8 mcg HFAA Inhale 2 puffs 2 (two) times a day . guaiFENesin (MUCINEX) 600 mg 12 hr tablet Take 600 mg by mouth 2 (two) times a day . MAGNESIUM OXIDE (MAG-OXIDE ORAL) Take 400 mg by mouth 2 (two) times a day metoprolol succinate (TOPROL-XL) 25 MG 24 hr tablet Take 1 (one) tablet (25 mg total) by mouth every morning . MULTIVITAMIN ORAL Take 1 tablet by mouth daily. nitroGLYCERIN (NITROSTAT) 0.[address] 1 (one) tablet (0.4 mg total) under the tongue every 5 (five) minutes as needed for chest pain . omeprazole (PRILOSEC) 20 MG capsule Take 1 (one) capsule (20 mg total) by mouth daily as needed . rosuvastatin (Crestor) 10 MG tablet Take 1 (one) tablet (10 mg total) by mouth at bedtime Recent increase per Pcp from 5 mg . sacubitriL-valsartan (ENTRESTO) 24-26 mg per tablet Take 1 (one) tablet by mouth 2 (two) times a day . sertraline (ZOLOFT) 50 MG tablet Take 50 mg by mouth daily . sodium zirconium cyclosilicate (Lokelma) 10 gram packet 10 g once . UNABLE TO FIND 1 tablet daily Tart girard tablets . Assessment/Plan: Coronary artery disease involving [place] coronary artery of [place] heart without angina pectoris From ischemic issue Ed is doing quite well with no recurrent angina or other associated symptoms. No changes were made in his medicines. Chronic systolic congestive heart failure (HCC) He continues to struggle with fluid overload which is been challenging to treat given his renal insufficiency. Hopefully once he does begin hemodialysis this will be much easier to handle. Essential hypertension His blood pressure is adequate on his current regimen. He has been having some issues with sleep lately therefore I changed his Toprol to 25 mg in the a.m. only. I also recommended a trial of melatonin to assist with sleep. PAF (paroxysmal atrial fibrillation) (HCC) Fortunately, and remains in sinus rhythm. We may consider lowering his amiodarone dose further overthe next several months. * Myra Arzate MA - 12/17/2020 12:11 PM EDT Review of Systems Cardiovascular: Negative. documented in this [id number] Miscellaneous Notes* Assessment & Plan Note - Park Hawk CNP - 11/23/2020 2:37 PM EDT Associated Problem(s): Bilateral pleural effusion Ed has experienced bilateral, recurrent pleural effusions, requiring repeated thoracentesis X 3, starting in August. His most recent procedure was in [place] on 11/11/2020. Today he states he feels less bloated and is experiencing less dyspnea on exertion than he was prior to 11/11/2020; however his chest xray from 11/19/2020 did demonstrate small to moderate bilateral pleural effusions. At that time lasix was increased to 80 mg daily. Will repeat chest xray today. Discussed that his declining renal function is paired with his decreased ejection fraction are the contributing factors for the repeated fluid accumulation. Dr. Ramirez has noted possible pleurodesisvs Pleurx catheter insertion. Will await chest xray results and proceed accordingly. * Assessment & Plan Note - Park Hawk CNP - 11/23/2020 2:35 PM EDT Associated Problem(s): Stage 4 chronic kidney disease (HCC) Ed is to have AV fistula procedure on 11/25/2020. He states that the anticipated initiation of renaldialysis is in approx 2 months. * Assessment & Plan Note - Park Hawk CNP - 11/23/2020 2:35 PM EDT Associated Problem(s): Essential hypertension Blood pressure within acceptable range today. No changes to medication regimen. * Assessment & Plan Note - Park Hawk CNP - 11/23/2020 2:01 PM EDT Associated Problem(s): MARCELO on CPAP Uses CPAP when not requiring supplemental O2 documented in this [id number] History of Present illness Narrative* Park Hawk CNP - 11/23/2020 1:49 PM EDT [facility] [address] [facility] [address] [facility] [id number] Assessment & Plan: MARCELO on CPAP Uses CPAP when not requiring supplemental O2 Essential hypertension Blood pressure within acceptable range today. No changes to medication regimen. Stage 4 chronic kidney disease (HCC) Ed is to have AV fistula procedure on 11/25/2020. He states that the anticipated initiation of renaldialysis is in approx 2 months. Bilateral pleural effusion Ed has experienced bilateral, recurrent pleural effusions, requiring repeated thoracentesis X 3, starting in August. His most recent procedure was in [place] on 11/11/2020. Today he states he feels less bloated and is experiencing less dyspnea on exertion than he was prior to 11/11/2020; however his chest xray from 11/19/2020 did demonstrate small to moderate bilateral pleural effusions. At that time lasix was increased to 80 mg daily. Will repeat chest xray today. Discussed that his declining renal function is paired with his decreased ejection fraction are the contributing factors for the repeated fluid accumulation. Dr. Ramirez has noted possible pleurodesisvs Pleurx catheter insertion. Will await chest xray results and proceed accordingly. Orders Placed This Encounter XR Chest AP/PA and LAT amiodarone (Pacerone) 200 MG tablet furosemide (LASIX) 40 MG tablet metoprolol succinate (TOPROL-XL) 25 MG 24 hr tablet Subjective: Minh Gonzalez is a 75 y.o. male seen in the office today for Follow-up (increased SOB ankles andlower legs swollen but not as bad as they have been) HPI: Minh Gonzalez is here today for follow up. He has been experiencing recurrent pleural effusions requiring repeat thoracentesis (bilaterally). Ed is also scheduled for an AV fistula procedure on11/25/2020 with anticipation of being renal dialysis in several months. 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 Coronary artery disease FSGS (focal segmental glomerulosclerosis) Hyperlipidemia Hypertension Myocardial infarction ([facility]) NYHA class 4 heart failure with reduced ejection fraction ([facility]) LVEF 30% MARCELO on CPAP 2018 Past Surgical History: Procedure Laterality Date CABG N/A 09/03/2020 Procedure: CORONARY ARTERY BYPASS GRAFT; Surgeon: Mil Dee MD; Location: [facility] Main OR; Service: Cardiothoracic CARDIAC CATHETERIZATION N/A 08/11/2014 Procedure: Left Heart Cath Possible PTCA/Stent; Surgeon: Lenin Ramirez MD; Location: [facility] EDUCATION RN; Service: CARDIAC CATHETERIZATION Right 12/31/2014 Procedure: Left Heart Cath Possible PTCA/Stent; Surgeon: Ranulfo Cobb MD; Location: [facility] EDUCATION RN; Service: CARDIAC CATHETERIZATION 08/11/2014 EF: 55% CARDIAC CATHETERIZATION 11/06/2006 EF: 45% CARDIAC CATHETERIZATION 08/09/2005 EF: 50% CARDIAC CATHETERIZATION 07/08/2005 EF: 45% CARDIAC CATHETERIZATION 12/31/2014 EF: 55% CORONARY ANGIOPLASTY WITH STENT PLACEMENT 08/09/2005 NORM- CX, RCA CORONARY ANGIOPLASTY WITH STENT PLACEMENT 07/08/2005 NORM- RCA CORONARY STENT PLACEMENT FOOT SURGERY Right INTERVENTIONAL RADIOLOGY PROCEDURE 08/27/2020 IR THORACENTESIS LT 08/27/2020 Jesus hCoudhary MD [facility] INTERVENTION RAD INTERVENTIONAL RADIOLOGY PROCEDURE 08/27/2020 IR THORACENTESIS RT 08/27/2020 Jesus Choudhary MD [facility] INTERVENTION RAD INTERVENTIONAL RADIOLOGY PROCEDURE 10/27/2020 IR THORACENTESIS LT 10/27/2020 Varun Kathleen MD [facility] INTERVENTION RAD INTERVENTIONAL RADIOLOGY PROCEDURE 10/27/2020 IR THORACENTESIS RT 10/27/2020 Varun Kathleen MD [facility] [place] INTERVENTION RAD JOINT REPLACEMENT knee replacement KNEE SURGERY RENAL BIOPSY TONSILLECTOMY Family History Problem Relation Age of Onset Stroke Mother Heart attack Father 54 Heart failure Father Hodgkin's lymphoma Father Social History Tobacco Use Smoking status: Former Smoker Quit date: 03/13/1989 Years since quittin.7 Smokeless tobacco: Never Used Vaping Use Vaping Use: Never used Substance Use Topics Alcohol use: Yes Alcohol/week: 1.0 standard drink Types: 1 Cans of beer per week Comment: about q3mo Drug use: No Outpatient Medications as of 11/23/2020 Medication Sig albuterol (PROVENTIL) 2.5 mg /3 mL (0.083 %) nebulizer solution Take 2.5 mg by nebulization 2 (two)times a day And as needed . allopurinoL (ZYLOPRIM) 100 MG tablet Take 1 (one) tablet (100 mg total) by mouth daily Start: 09/11/20. (Patient taking differently: Take 100 mg by mouth 2 (two) times a day .) apixaban (ELIQUIS) 5 mg Tab Take 1 (one) tablet (5 mg total) by mouth 2 (two) times a day [facility] [id number] [facility] [id number] [facility] 1016 ID [id number] . ASPIRIN ORAL Take 81 mg by mouth daily Doing for a month post knee repalcement . ferrous gluconate (FERGON) 246 (28 FE) MG tablet Take 65 mg by mouth daily with breakfast . fluticasone propionate (FLONASE) 50 mcg/actuation nasal spray Instill 2 sprays into each nostril daily . glycopyrrolate-formoteroL (Bevespi Aerosphere) 9-4.8 mcg HFAA Inhale 2 puffs 2 (two) times a day . guaiFENesin (MUCINEX) 600 mg 12 hr tablet Take 600 mg by mouth 2 (two) times a day . MAGNESIUM OXIDE (MAG-OXIDE ORAL) Take 400 mg by mouth 2 (two) times a day MULTIVITAMIN ORAL Take 1 tablet by mouth daily. nitroGLYCERIN (NITROSTAT) 0.[address] 1 (one) tablet (0.4 mg total) under the tongue every 5 (five) minutes as needed for chest pain . omeprazole (PRILOSEC) 20 MG capsule Take 1 (one) capsule (20 mg total) by mouth daily as needed . rosuvastatin (Crestor) 10 MG tablet Take 1 (one) tablet (10 mg total) by mouth at bedtime Recent increase per Pcp from 5 mg . sacubitriL-valsartan (ENTRESTO) 24-26 mg per tablet Take 1 (one) tablet by mouth 2 (two) times a day . sertraline (ZOLOFT) 50 MG tablet Take 50 mg by mouth daily . sodium zirconium cyclosilicate (Lokelma) 10 gram packet 10 g once . UNABLE TO FIND 1 tablet daily Tart girard tablets . [DISCONTINUED] amiodarone (Pacerone) 200 MG tablet Take 1 (one) tablet (200 mg total) by mouth daily . [DISCONTINUED] furosemide (LASIX) 40 MG tablet Take 1 (one) tablet (40 mg total) by mouth daily . (Patient taking differently: Take 40 mg by mouth 2 (two) times a day .) [DISCONTINUED] metoprolol succinate (TOPROL-XL) 25 MG 24 hr tablet Take 1 (one) tablet (25 mg total) by mouth 2 (two) times a day . ASCORBATE CALCIUM (VITAMIN C ORAL) Take 500 mg by mouth daily. Allergies Allergen Reactions Penicillins Other (See Comments) High fever Amlodipine Itching Ec Aspirin Hives Only the EC aspirin Prednisone Heart race Review of Systems Constitutional: Positive for malaise/fatigue. Negative for diaphoresis, weight gain and weight loss. HENT: Negative for hearing loss, nosebleeds and tinnitus. Eyes: Negative for blurred vision and visual disturbance. Cardiovascular: Positive for dyspnea on exertion and leg swelling. Negative for chest pain, claudication, cyanosis, irregular heartbeat, near-syncope, orthopnea, palpitations, paroxysmal nocturnal dyspnea and syncope. Respiratory: Negative for hemoptysis, shortness of breath and snoring. Endocrine: Negative for cold intolerance and heat intolerance. Hematologic/Lymphatic: Does not bruise/bleed easily. Skin: Negative for flushing, poor wound healing and rash. Musculoskeletal: Positive for joint swelling. Negative for back pain, muscle weakness and myalgias. Gastrointestinal: Negative for abdominal pain, change in bowel habit, melena, nausea and vomiting. Genitourinary: Negative for decreased libido and hematuria. Neurological: Negative for loss of balance and numbness. Psychiatric/Behavioral: Negative for memory loss. The patient is not nervous/anxious. Objective: Physical Exam Vitals reviewed. Constitutional: Appearance: Normal appearance. He is well-developed. HENT: Head: Normocephalic. Nose: Nose normal. Mouth/Throat: Mouth: Mucous membranes are moist. Eyes: General: Lids are normal. Conjunctiva/sclera: Conjunctivae normal. Neck: Vascular: No carotid bruit or JVD. Cardiovascular: Rate and Rhythm: Normal rate and regular rhythm. Pulses: Normal pulses. Heart sounds: Normal heart sounds. No murmur heard. No friction rub. No gallop. Pulmonary: Effort: Pulmonary effort is normal. Comments: Diminished in bases. Bases dull to percussion. Abdominal: General: Bowel sounds are normal. Palpations: Abdomen is soft. There is no mass. Tenderness: There is no abdominal tenderness. Musculoskeletal: General: Normal range of motion. Right lower leg: Edema present. Left lower leg: Edema present. Comments: +2 bilateral lower leg edema Skin: General: Skin is warm. Findings: No rash. Neurological: Mental Status: He is alert and oriented to person, place, and time. Gait: Gait normal. Psychiatric: Behavior: Behavior normal. Vitals: Vitals: 11/23/20 1252 BP: 131/76 BP Location: Right arm Patient Position: Sitting Pulse: 63 SpO2: 90% Weight: 85.3 kg (188 lb) Height: 5' 7 25 minutes spent with patient [id number] Follow Up Ordered: Return for As scheduled with Dr. Ramirez in December. Park Hawk CNP * Demetrice Jain MA - 11/23/2020 1:01 PM EDT Review of Systems Constitutional: Negative for diaphoresis, malaise/fatigue, weight gain and weight loss. HENT: Negative for hearing loss, nosebleeds and tinnitus. Eyes: Negative for blurred vision and visual disturbance. Cardiovascular: Negative for chest pain, claudication, cyanosis, dyspnea on exertion, irregular heartbeat, leg swelling, near-syncope, orthopnea, palpitations, paroxysmal nocturnal dyspnea and syncope. Respiratory: Positive for shortness of breath. Negative for hemoptysis and snoring. Endocrine: Negative for cold intolerance and heat intolerance. Hematologic/Lymphatic: Does not bruise/bleed easily. Skin: Negative for flushing, poor wound healing and rash. Musculoskeletal: Positive for joint swelling. Negative for back pain, muscle weakness and myalgias. Gastrointestinal: Negative for abdominal pain, change in bowel habit, melena, nausea and vomiting. Genitourinary: Negative for decreased libido and hematuria. Neurological: Negative for loss of balance and numbness. Psychiatric/Behavioral: Negative for memory loss. The patient is not nervous/anxious. documented in this [id number] Miscellaneous Notes* Assessment & Plan Note - Park Hawk CNP - 10/26/2020 9:03 AM EDT Associated Problem(s): Chronic systolic congestive heart failure (HCC) Increasing dyspnea on exertion and decreasing O2 sats with increased need for supplemental O2 therapy. Chest x-ray ordered and BMP (Basic metabolic panel). Continue Entresto and lasix with results pending to determine any change in therapy. * Assessment & Plan Note - Park Hawk CNP - 10/26/2020 8:58 AM EDT Associated Problem(s): PAF (paroxysmal atrial fibrillation) ([facility]) ECG today continues to demonstrate atrial fibrillation with controlled ventricular response. He is anticoagulated with Eliquis. Ed states the Eliquis is quite expensive and we discussed that he couldtransition to warfarin if needed. Will continue Eliquis for now. No changes to amiodarone or Toprol. Will review with Dr. Ramirez to consider if Ed is persistent atrial fibrillation or further intervention will be attempted. * Assessment & Plan Note - Park Hawk CNP - 10/26/2020 8:45 AM EDT Associated Problem(s): S/P CABG (coronary artery bypass graft) Mid sternal incision well approximated. CABG (Coronary artery bypass graft) X 1 VEGA to left coronary artery 09/03/2020 Ed denies chest pain/pressure, syncope, near-syncope, lightheadedness, PND. He states he was feeling good until 2 weeks ago when he noticed increasing dyspnea on exertion and lower leg edema. He is stage 4 CKD (chronic kidney disease) and has an appointment tomorrow to discuss hemodialysis versus peritoneal dialysis. Ed requires bilateral thoracentesis prior to the CABG (Coronary artery bypass graft) in August. We discussed that his ELLIOTT may very well be related to another build up of fluid requiring thoracentesis. He has HFrEF as well as CKD (chronic kidney disease) stage 4 so certainly these impact his fluid retention issues. Will obtain BMP (Basic metabolic panel) and AP/LAT chest xray today and proceed based on results. Continue beta sammy, statin, ASA * Assessment & Plan Note - Park Hawk CNP - 10/26/2020 8:33 AM EDT Associated Problem(s): Stage 4 chronic kidney disease (HCC) Ed states that he has an appointment with Dr. Peters, Nephrology, tomorrow to discuss the plan moving forward regarding hemodialysis vs. Peritoneal dialysis. He has completed the venous mapping for AV vistula. * Assessment & Plan Note - Park Hawk CNP - 10/26/2020 8:31 AM EDT Associated Problem(s): Essential hypertension Ed's systolic blood pressure is slightly elevated, however he assures me it has been under good control at home. Will hold making any medication adjustments until chest xray and lab results are available. * Assessment & Plan Note - Park Hawk CNP - 10/26/2020 8:30 AM EDT Associated Problem(s): MARCELO on CPAP Has not been using CPAP for the past few nights due to needing supplemental O2. documented in this [id number] History of Present illness Narrative* Park Hawk CNP - 10/26/2020 8:25 AM EDT [facility] [address] [facility] [address] [facility] [id number] Assessment & Plan: MARCELO on CPAP Has not been using CPAP for the past few nights due to needing supplemental O2. Essential hypertension Ed's systolic blood pressure is slightly elevated, however he assures me it has been under good control at home. Will hold making any medication adjustments until chest xray and lab results are available. Stage 4 chronic kidney disease (HCC) Ed states that he has an appointment with Dr. Peters, Nephrology, tomorrow to discuss the plan moving forward regarding hemodialysis vs. Peritoneal dialysis. He has completed the venous mapping for AV vistula. S/P CABG (coronary artery bypass graft) Mid sternal incision well approximated. CABG (Coronary artery bypass graft) X 1 VEGA to left coronary artery 09/03/2020 Ed denies chest pain/pressure, syncope, near-syncope, lightheadedness, PND. He states he was feeling good until 2 weeks ago when he noticed increasing dyspnea on exertion and lower leg edema. He is stage 4 CKD (chronic kidney disease) and has an appointment tomorrow to discuss hemodialysis versus peritoneal dialysis. Ed requires bilateral thoracentesis prior to the CABG (Coronary artery bypass graft) in August. We discussed that his ELLIOTT may very well be related to another build up of fluid requiring thoracentesis. He has HFrEF as well as CKD (chronic kidney disease) stage 4 so certainly these impact his fluid retention issues. Will obtain BMP (Basic metabolic panel) and AP/LAT chest xray today and proceed based on results. Continue beta sammy, statin, ASA PAF (paroxysmal atrial fibrillation) (HCC) ECG today continues to demonstrate atrial fibrillation with controlled ventricular response. He is anticoagulated with Eliquis. Ed states the Eliquis is quite expensive and we discussed that he couldtransition to warfarin if needed. Will continue Eliquis for now. No changes to amiodarone or Toprol. Will review with Dr. Ramirez to consider if Ed is persistent atrial fibrillation or further intervention will be attempted. Chronic systolic congestive heart failure (HCC) Increasing dyspnea on exertion and decreasing O2 sats with increased need for supplemental O2 therapy. Chest x-ray ordered and BMP (Basic metabolic panel). Continue Entresto and lasix with results pending to determine any change in therapy. Orders Placed This Encounter XR Chest AP/PA and LAT Basic metabolic panel ECG 12 lead ECG 12 lead furosemide (LASIX) 40 MG tablet metoprolol succinate (TOPROL-XL) 25 MG 24 hr tablet fluticasone propionate (FLONASE) 50 mcg/actuation nasal spray guaiFENesin (MUCINEX) 600 mg 12 hr tablet sertraline (ZOLOFT) 50 MG tablet amiodarone (Pacerone) 200 MG tablet Subjective: Minh Gonzalez is a 75 y.o. male seen in the office today for Follow-up (6 wk S/P openheart Started back on O2 at home aboue 1.5 wk ago) HPI: Minh Gonzalez is here today for follow up. He is S/P CABG (Coronary artery bypass graft) 09/03/[address] [facility]. He states he initially felt improved in regards to shortness of breath and energy and had started to get his appetite back, until two weeks ago. At that time he started to noticed more dyspnea on exertion and that his O2 sat readings in the morning have been in the 80's. He is using supplemental oxygen in the morning and night daily. 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 Coronary artery disease FSGS (focal segmental glomerulosclerosis) Hyperlipidemia Hypertension Myocardial infarction ([facility]) NYHA class 4 heart failure with reduced ejection fraction ([facility]) LVEF 30% MARCELO on CPAP 2018 Past Surgical History: Procedure Laterality Date CABG N/A 09/03/2020 Procedure: CORONARY ARTERY BYPASS GRAFT; Surgeon: Mil Dee MD; Location: [facility] [place] Main OR; Service: Cardiothoracic CARDIAC CATHETERIZATION N/A 08/11/2014 Procedure: Left Heart Cath Possible PTCA/Stent; Surgeon: Lenin Ramirez MD; Location: [facility] [place] EDUCATION RN; Service: CARDIAC CATHETERIZATION Right 12/31/2014 Procedure: Left Heart Cath Possible PTCA/Stent; Surgeon: Ranulfo Cobb MD; Location: [facility] [place] EDUCATION RN; Service: CARDIAC CATHETERIZATION 08/11/2014 EF: 55% CARDIAC CATHETERIZATION 11/06/2006 EF: 45% CARDIAC CATHETERIZATION 08/09/2005 EF: 50% CARDIAC CATHETERIZATION 07/08/2005 EF: 45% CARDIAC CATHETERIZATION 12/31/2014 EF: 55% CORONARY ANGIOPLASTY WITH STENT PLACEMENT 08/09/2005 NORM- CX, RCA CORONARY ANGIOPLASTY WITH STENT PLACEMENT 07/08/2005 NORM- RCA CORONARY STENT PLACEMENT FOOT SURGERY Right INTERVENTIONAL RADIOLOGY PROCEDURE 08/27/2020 IR THORACENTESIS LT 08/27/2020 Jesus Choudhary MD [facility] [place] INTERVENTION RAD INTERVENTIONAL RADIOLOGY PROCEDURE 08/27/2020 IR THORACENTESIS RT 08/27/2020 Jesus Choudhary MD [facility] [place] INTERVENTION RAD JOINT REPLACEMENT knee replacement KNEE SURGERY RENAL BIOPSY TONSILLECTOMY Family History Problem Relation Age of Onset Stroke Mother Heart attack Father 54 Heart failure Father Hodgkin's lymphoma Father Social History Tobacco Use Smoking status: Former Smoker Quit date: 03/13/1989 Years since quittin.6 Smokeless tobacco: Never Used Vaping Use Vaping Use: Never used Substance Use Topics Alcohol use: Yes Comment: occasionally Drug use: No Outpatient Medications as of 10/26/2020 Medication Sig albuterol (PROVENTIL) 2.5 mg /3 mL (0.083 %) nebulizer solution Take 2.5 mg by nebulization 2 (two)times a day And as needed . allopurinoL (ZYLOPRIM) 100 MG tablet Take 1 (one) tablet (100 mg total) by mouth daily Start: 09/11/20. (Patient taking differently: Take 100 mg by mouth 2 (two) times a day .) apixaban (ELIQUIS) 5 mg Tab Take 1 (one) tablet (5 mg total) by mouth 2 (two) times a day [facility] [id number] [facility] [id number] [facility] 1016 ID [id number] . ASCORBATE CALCIUM (VITAMIN C ORAL) Take 500 mg by mouth daily. ASPIRIN ORAL Take 81 mg by mouth daily Doing for a month post knee repalcement . ferrous gluconate (FERGON) 246 (28 FE) MG tablet Take 65 mg by mouth daily with breakfast . fluticasone propionate (FLONASE) 50 mcg/actuation nasal spray Instill 2 sprays into each nostril daily . furosemide (LASIX) 40 MG tablet Take 1 (one) tablet (40 mg total) by mouth daily . glycopyrrolate-formoteroL (Bevespi Aerosphere) 9-4.8 mcg HFAA Inhale 2 puffs 2 (two) times a day . MAGNESIUM OXIDE (MAG-OXIDE ORAL) Take 400 mg by mouth 2 (two) times a day metoprolol succinate (TOPROL-XL) 25 MG 24 hr tablet Take 1 (one) tablet (25 mg total) by mouth 2 (two) times a day . MULTIVITAMIN ORAL Take 1 tablet by mouth daily. nitroGLYCERIN (NITROSTAT) 0.[address] 1 (one) tablet (0.4 mg total) under the tongue every 5 (five) minutes as needed for chest pain . omeprazole (PRILOSEC) 20 MG capsule Take 1 (one) capsule (20 mg total) by mouth daily as needed . rosuvastatin (Crestor) 10 MG tablet Take 1 (one) tablet (10 mg total) by mouth at bedtime Recent increase per Pcp from 5 mg . sacubitriL-valsartan (ENTRESTO) 24-26 mg per tablet Take 1 (one) tablet by mouth 2 (two) times a day . sertraline (ZOLOFT) 50 MG tablet Take 50 mg by mouth daily . sodium zirconium cyclosilicate (Lokelma) 10 gram packet 10 g once . UNABLE TO FIND 1 tablet daily Tart girard tablets . [DISCONTINUED] amiodarone (CORDARONE) 200 MG tablet Take 1 (one) tablet (200 mg total) by mouth 2 (two) times a day for 14 days, THEN 1 (one) tablet (200 mg total) daily. (Patient taking differently:1 (one) tablet (200 mg total) daily.) Allergies Allergen Reactions Penicillins Other (See Comments) High fever Amlodipine Itching Ec Aspirin Hives Only the EC aspirin Prednisone Heart race Review of Systems Constitutional: Positive for decreased appetite, malaise/fatigue and weight gain. Negative for diaphoresis and weight loss. HENT: Negative for hearing loss, nosebleeds and tinnitus. Eyes: Negative for blurred vision and visual disturbance. Cardiovascular: Positive for dyspnea on exertion, irregular heartbeat and leg swelling. Negative for chest pain, claudication, cyanosis, near-syncope, orthopnea, palpitations, paroxysmal nocturnal dyspnea and syncope. Respiratory: Negative for hemoptysis, shortness of breath and snoring. Endocrine: Negative for cold intolerance and heat intolerance. Hematologic/Lymphatic: Does not bruise/bleed easily. Skin: Negative for flushing, poor wound healing and rash. Musculoskeletal: Negative for back pain, muscle weakness and myalgias. Gastrointestinal: Negative for abdominal pain, change in bowel habit, melena, nausea and vomiting. Genitourinary: Negative for decreased libido and hematuria. Neurological: Negative for loss of balance and numbness. Psychiatric/Behavioral: Negative for memory loss. The patient is not nervous/anxious. Objective: Physical Exam Vitals reviewed. Constitutional: Appearance: Normal appearance. He is well-developed. HENT: Head: Normocephalic. Nose: Nose normal. Mouth/Throat: Mouth: Mucous membranes are moist. Eyes: General: Lids are normal. Conjunctiva/sclera: Conjunctivae normal. Neck: Vascular: No carotid bruit or JVD. Cardiovascular: Rate and Rhythm: Normal rate. Rhythm irregular. Pulses: Normal pulses. Heart sounds: Normal heart sounds. No murmur heard. No friction rub. No gallop. Pulmonary: Effort: Pulmonary effort is normal. Breath sounds: Normal breath sounds. Comments: Bi-basilar crackles Abdominal: General: Bowel sounds are normal. Palpations: Abdomen is soft. There is no mass. Tenderness: There is no abdominal tenderness. Musculoskeletal: General: Normal range of motion. Right lower leg: Edema present. Left lower leg: Edema present. Comments: +1-2 bilateral lower leg edema Skin: General: Skin is warm. Findings: No rash. Neurological: Mental Status: He is alert and oriented to person, place, and time. Gait: Gait normal. Psychiatric: Behavior: Behavior normal. Vitals: Vitals: 10/26/20 0755 BP: 143/77 BP Location: Right arm Patient Position: Sitting Pulse: 66 SpO2: (!) 84% Weight: 84.8 kg (187 lb) Height: 5' 7 EKG Interpretation: 2 ECG's were performed due to technical issues with the computer and interface with the ECG cable. ECG demonstrated atrial fibrillation with controlled ventricular response. Isolated PVC noted. 30 minutes spent with patient [id number] Follow Up Ordered: Return for Appointment as scheduled with Dr. Ramirez. Park Hawk CNP * Demetrice Jain MA - 10/26/2020 7:58 AM EDT Review of Systems Constitutional: Negative for diaphoresis, malaise/fatigue, weight gain and weight loss. HENT: Negative for hearing loss, nosebleeds and tinnitus. Eyes: Negative for blurred vision and visual disturbance. Cardiovascular: Negative for chest pain, claudication, cyanosis, dyspnea on exertion, irregular heartbeat, leg swelling, near-syncope, orthopnea, palpitations, paroxysmal nocturnal dyspnea and syncope. Respiratory: Negative for hemoptysis, shortness of breath and snoring. Endocrine: Negative for cold intolerance and heat intolerance. Hematologic/Lymphatic: Does not bruise/bleed easily. Skin: Negative for flushing, poor wound healing and rash. Musculoskeletal: Negative for back pain, muscle weakness and myalgias. Gastrointestinal: Negative for abdominal pain, change in bowel habit, melena, nausea and vomiting. Genitourinary: Negative for decreased libido and hematuria. Neurological: Negative for loss of balance and numbness. Psychiatric/Behavioral: Negative for memory loss. The patient is not nervous/anxious. documented in this [id number] Instructions* Patient Instructions* Maritza Barron MA - 10/26/2020 8:00 AM EDT How to contact your Care Team: Park Hawk CNP In case of an emergency please call 911. REFILLS: When in need for refills please call your care team or the office at [phone]. Please include medication name, pharmacy name, and specify 30-day or 90-day supply. Please check with your pharmacy within 24 hours of request for your refill. You must follow up as directed to continue current refills. Thank you! documented in this [id number] History of Present illness Narrative* Mil Dee MD - 10/21/2020 8:44 AM EDT Dictation on: 10/21/2020 8:45 AM by: MIL DEE [[id number]] documented in this [id number] History of Present illness Narrative* Leonila Walls RN - 09/30/2020 9:18 AM EDT Heart Disease Management Nurse Progress Note [facility] OFFICE 09/30/20 Minh Gonzalez 1945 Congestive Heart Failure (HFC visit ) Minh Gonzalez is a 75 y.o. year-old male seen today in the [facility] for follow up. HF symptoms have greatly diminished. Last echo date: 04/2018, stress 07/20/18, 10/26/18, 09/08/20 Ejection fraction: 39-40%, 40-45%, 33% Physician Communication: Subjective/Objective Vitals: 09/30/20 0821 BP: 129/73 BP Location: Left arm Patient Position: Sitting BP Cuff Size: Adult Pulse: (!) 55 Resp: 16 SpO2: 98% Weight: 82.1 kg (181 lb) Weight is 181 today, down weight since open heart General: Feeling stronger each day, having some depression since open heart. HF symptoms are stable Psych: calm Breath Sounds: Clear throughout SOB: with exertion, denies any orthopnea, PND, persistent cough but is having trouble sleeping. Unable to fall asleep most nights Heart Sounds:regular Skin: WNL Edema: trace edema noted today, right calf, no JVD GI/: WNL Activity/Diet: normal activities of daily living sodium restriction adherence: yes, most of the time Fluid restriction adherence: Yes NYHA Functional Classification: Class II: Slight limitation of physical activity. Lab Drawn: Blood work completed by Pcp and his kidney doc Assessment & Plan Ed was seen today in the HF. 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 HF symptoms have been very stable, his weight is down 16 pounds from his last [facility] visit end of July. He is having some trouble sleeping and has some mild depression. Encouraged him to talk with his Pcp about some medication. He sees him next week. Ed is having vein mapping done to prepare him for dialysis in the future. He is having trouble with elevated Potassium and is taking Lokelma for this. Ed's mid chest incision looks well healed. AP today sounded regular. He has some follow up appt. The next few months. Entresto samples given for two week coverage while they wait for them to comeby mail. Diagnoses and all orders for this visit: Therapeutic drug monitoring - Ambulatory referral to Heart Failure Clinic Recommendation for home daily weights with a reminder to call with weight gain >3 pounds, increased shortness of breath, waking up at night short of breath, increase in swelling, getting tired faster, urinating less frequently, dizziness or lightheadedness. Goals (plan of care) for next visit: 1. CHF Assessment 2. Monitor BP and HR 3. Maintain weight Medications administered this Visit Follow-Up: Return in about 8 weeks (around 11/25/2020). Leonila Walls RN documented in this [id number] Instructions* Patient Instructions* Leonila Walls RN - 09/30/2020 8:44 AM EDT Recommendations for home daily weights with a reminder to call with weight gain > 3 pounds, increased shortness of breath, increase in swelling, getting tired faster, urinating less frquently, dizziness or lightheadedness. Call with questions or concerns documented in this [id number] History of Present illness Narrative* Pearl Noble PA-C - 09/16/2020 9:02 AM EDT Called and discussed labs and CXR with patient Instructed to follow up as soon as possible with Javascript Ui Developer He voiced understanding Had no complaints and stated wounds were healing nicely Was advised to call our office with any concerns documented in this [id number] Instructions* Patient Instructions* Leonila Walls RN - 08/03/2020 2:32 PM EDT Recommendations for home daily weights with a reminder to call with weight gain > 3 pounds, increased shortness of breath, increase in swelling, getting tired faster, urinating less frquently, dizziness or lightheadedness. Call with questions or concerns documented in this [id number] History of Present illness Narrative* Leonila Walls RN - 08/03/2020 2:11 PM EDT Heart Disease Management Nurse Progress Note [facility] OFF[facility] 08/03/20 Minh Gonzalez 1945 Congestive Heart Failure ([facility] visit) Minh Gonzalez is a 75 y.o. year-old male seen today in the [facility] for follow up. Called in and asked to be seen due to shortness of breath and cough, poor appetite Last echo date: 04/2018, stress 07/20/18, 10/26/18 Ejection fraction: 39-40%, 40-45% Physician Communication: Discussed doing blood work and chest xray. Order received. Subjective/Objective Vitals: 08/03/20 1321 BP: 139/76 BP Location: Left arm Patient Position: Sitting BP Cuff Size: Adult Pulse: 68 Resp: 16 SpO2: 93% Weight: 89.4 kg (197 lb) Weight is 197 today actually down 6 pounds from June visit General: Not feeling well, went to urgent care over the weekend Psych: calm Breath Sounds: Clear throughout SOB: with exertion, having some orthopnea head of bed elevated 45 degrees, no PND, positive for persistent cough or difficulty sleeping. Heart Sounds:regular Skin: WNL Edema: trace edema noted today, bilat shins, no JVD GI/: WNL Activity/Diet: normal activities of daily living sodium restriction adherence: yes, most of the time Fluid restriction adherence: Yes NYHA Functional Classification: Class II: Slight limitation of physical activity. Lab Drawn: Blood work today Assessment & Plan Minh was seen today, unscheduled appt. Due to heart failure symptoms. Ed complains of shortness of breath that started mid last week. This weekend it was worse along with a cough. He had a large amount of sputum that he coughed up Monday that caused him to vomit. He was negative for covid and afebrile. His weight was actually down a couple pounds today and he had minimal swelling. [facility] him on Doxycycline and Tessalon Perles. Ed said his pulse ox at home was as low as 89 but [facility]gent [facility] 97%. Ed has been taking 60 mg of Lasix daily but said he feels like he might have fluidin his lungs. Instructed Ed to have blood work and x ray done across the street today. Await results. Diagnoses and all orders for this visit: Therapeutic drug monitoring - Ambulatory referral to Heart Failure Clinic Recommendation for home daily weights with a reminder to call with weight gain >3 pounds, increased shortness of breath, waking up at night short of breath, increase in swelling, getting tired faster, urinating less frequently, dizziness or lightheadedness. Goals (plan of care) for next visit: 1. CHF Assessment 2. Monitor BP and HR 3. Maintain weight Medications administered this Visit Follow-Up: No follow-ups on file. 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 [facility] Diagnosis ELLIOTT (dyspnea on exertion)- Primary Other dyspnea and respiratory abnormality 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 Stage 3 chronic kidney disease, unspecified whether stage 3a or 3b CKD (HCC) PAF (paroxysmal atrial fibrillation) (HCC) Atrial fibrillation MARCELO on CPAP Essential hypertension Unspecified essential hypertension Stage 4 chronic kidney disease (HCC) Chronic systolic congestive heart failure (HCC) ELLIOTT (dyspnea on exertion) Other dyspnea and respiratory abnormality [facility]* Diagnosis Pleural effusion, bilateral- Primary Unspecified pleural effusion Therapeutic drug monitoring Encounter for therapeutic drug monitoring [facility] Diagnosis Pleural effusion- Primary Unspecified pleural effusion [facility] Diagnosis Bilateral pleural effusion- Primary Unspecified pleural effusion 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 MARCELO on CPAP Essential hypertension Unspecified essential hypertension Stage 4 chronic kidney disease (HCC) Bilateral pleural effusion Unspecified pleural effusion [facility] Diagnosis Therapeutic drug monitoring- Primary Encounter for therapeutic drug monitoring [facility] Diagnosis PAF (paroxysmal atrial fibrillation) (HCC)- Primary Atrial fibrillation 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 Chronic systolic congestive heart failure (HCC) Coronary artery disease involving [place] coronary artery of [place] heart without angina pectoris Essential hypertension Unspecified essential hypertension [facility] Diagnosis Bilateral pleural effusion- Primary Unspecified pleural effusion Stage 4 chronic kidney disease (HCC) Chronic systolic congestive heart failure (HCC) [facility] Diagnosis Pleural effusion- Primary Unspecified pleural effusion Pleural effusion- Primary Unspecified pleural effusion [facility] Diagnosis Pleural effusion- Primary Unspecified pleural effusion Bilateral pleural effusion Unspecified pleural effusion Bilateral pleural effusion Unspecified pleural effusion [facility]* Diagnosis Pleural effusion- Primary Unspecified pleural effusion Bilateral pleural effusion Unspecified pleural effusion [facility]* Diagnosis 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 [facility]* Diagnosis 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 [facility]* Diagnosis PAF (paroxysmal atrial fibrillation) (HCC)- Primary Atrial fibrillation [facility]* Diagnosis Sepsis, due to unspecified organism, unspecified whether acute organ dysfunction present (HCC)- Primary Other pneumonia, unspecified organism [facility]* Diagnosis Chronic systolic congestive heart failure (HCC)- Primary Coronary artery disease involving [place] coronary artery of [place] heart without angina pectoris Dyspnea on exertion Other dyspnea and respiratory abnormality Generalized weakness [facility]* Diagnosis Coronary artery disease involving [place] coronary artery of [place] heart without angina pectoris- Primary Chronic systolic congestive heart failure (HCC) Essential hypertension Unspecified essential hypertension [facility]* Diagnosis Chronic systolic congestive heart failure (HCC)- Primary Dyspnea on exertion Other dyspnea and respiratory abnormality [facility]* Diagnosis Adenocarcinoma (HCC)- Primary Other malignant neoplasm of unspecified site [facility]* Diagnosis MARCLEO on CPAP- Primary Malignant neoplasm of ascending colon (HCC) Malignant neoplasm of ascending colon Coronary artery disease involving [place] coronary artery of [place] heart without angina pectoris 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 Chronic obstructive pulmonary disease, unspecified COPD type (HCC) ESRD on dialysis (HCC) End stage renal disease Chronic systolic congestive heart failure (HCC) Anticoagulated, on Eliquis Encounter for long-term (current) use of anticoagulants [facility]* Diagnosis Malignant neoplasm of ascending colon (HCC)- Primary Malignant neoplasm of ascending colon [facility]* Diagnosis Malignant neoplasm of ascending colon (HCC)- Primary Malignant neoplasm of ascending colon Malignant neoplasm of ascending colon (HCC)- Primary Malignant neoplasm of ascending colon Malignant neoplasm of ascending colon (HCC) Malignant neoplasm of ascending colon [facility]* Diagnosis PAF (paroxysmal atrial fibrillation) (HCC)- Primary Atrial fibrillation Encounter for monitoring amiodarone therapy [facility]* Diagnosis Coronary artery disease involving [place] coronary artery of [place] heart without angina pectoris- Primary Chronic systolic congestive heart failure (HCC) Ventricular tachycardia (paroxysmal) Paroxysmal ventricular tachycardia Mixed hyperlipidemia PAF (paroxysmal atrial fibrillation) (HCC) Atrial fibrillation Encounter for monitoring amiodarone therapy Essential hypertension Unspecified essential hypertension [facility]* Diagnosis PAF (paroxysmal atrial fibrillation) (HCC)- Primary Atrial fibrillation [facility]* Diagnosis Elevated CEA- Primary Elevated carcinoembryonic antigen (CEA) Malignant neoplasm of ascending colon (HCC) Malignant neoplasm of ascending colon [facility]* Diagnosis Malignant neoplasm of ascending colon (HCC)- Primary Malignant neoplasm of ascending colon PAF (paroxysmal atrial fibrillation) (HCC) Atrial fibrillation ESRD on dialysis (HCC) End stage renal disease Cellulitis of other specified site Cellulitis of perineum Cellulitis and abscess of trunk Sepsis, due to unspecified organism, unspecified whether acute organ dysfunction present ([facility]* Diagnosis Coronary artery disease involving [place] coronary artery of [place] heart without angina pectoris Chronic systolic congestive heart failure (HCC) Mixed hyperlipidemia PAF (paroxysmal atrial fibrillation) (HCC) Atrial fibrillation [facility]* Diagnosis Elevated CEA- Primary Elevated carcinoembryonic antigen (CEA) Malignant neoplasm of ascending colon (HCC) Malignant neoplasm of ascending colon Cellulitis of right buttock documented in this encounter [facility] course Narrative No data available for this section [facility] Patient's home Plan of care note* Visit Details Visit Type -SN HH Routine Vi sit Discipline -Snf Problems Problem Start Date Status Goals Interventions Wound Care and/or Skin Problems Disciplines: Snf 01/20/2021 Active 1 goal linked to scheduled/documented intervention 1 goal intervention scheduled/documented in this visit Assess and Instruct Home Visit Disciplines: Snf 01/20/2021 Active 1 goal linked to scheduled/documented intervention 4 goal interventions scheduled/documented in this visit Medication Management Disciplines: Snf 01/20/2021 Active 1 goal linked to scheduled/documented intervention 1 goal intervention scheduled/documented in this visit Pain Management Disciplines: Snf 01/20/2021 Active 1 goal linked to scheduled/documented intervention 1 goal intervention scheduled/documented in this visit Goals Goal Associated Problem Outcome Goal Met? Visit Notes Drain/Tube Wound Care and/or Skin Problems No Home Care Plan Assess and Instruct Home Visit No Medications Medication Management No Pain Pain Management No Interventions Intervention Associated Problem/Goal Status Variance Visit Notes Instruct Drains/Tube(s) Problem:Wound Care and/or Skin Problems Goal:Drain/Tube Completed Falls Problem:Assess and Instruct Home Visit Goal:Home Care Plan Completed Safety Problem:Assess and Instruct Home Visit Goal:Home Care Plan Completed Discharge Planning Problem:Assess and Instruct Home Visit Goal:Home Care Plan Completed Plan for Next Visit Problem:Assess and Instruct Home Visit Goal:Home Care Plan Completed Instruct Medication Management Problem:Medication Management Goal:Medications Completed Assess Pain Characteristics and Current Pain Regimen and Instruct Methods of Pain Relief Problem:Pain Management Goal:Pain Completed [facility] Visit Details Visit Type -SN HH Routine Vi sit Discipline -Snf Problems Problem Start Date Status Goals Interventions Wound Care and/or Skin Problems Disciplines: Snf 01/20/2021 Active 1 goal linked to scheduled/documented intervention 1 goal intervention scheduled/documented in this visit Assess and Instruct Home Visit Disciplines: Snf 01/20/2021 Active 1 goal linked to scheduled/documented intervention 4 goal interventions scheduled/documented in this visit Medication Management Disciplines: Snf 01/20/2021 Active 1 goal linked to scheduled/documented intervention 1 goal intervention scheduled/documented in this visit Pain Management Disciplines: Snf 01/20/2021 Active 1 goal linked to scheduled/documented intervention 1 goal intervention scheduled/documented in this visit Goals Goal Associated Problem Outcome Goal Met? Visit Notes Drain/Tube Wound Care and/or Skin Problems No Home Care Plan Assess and Instruct Home Visit No Medications Medication Management No Pain Pain Management No Interventions Intervention Associated Problem/Goal Status Variance Visit Notes Instruct Drains/Tube(s) Problem:Wound Care and/or Skin Problems Goal:Drain/Tube Completed Falls Problem:Assess and Instruct Home Visit Goal:Home Care Plan Completed Safety Problem:Assess and Instruct Home Visit Goal:Home Care Plan Completed Discharge Planning Problem:Assess and Instruct Home Visit Goal:Home Care Plan Completed Plan for Next Visit Problem:Assess and Instruct Home Visit Goal:Home Care Plan Completed Instruct Medication Management Problem:Medication Management Goal:Medications Completed Assess Pain Characteristics and Current Pain Regimen and Instruct Methods of Pain Relief Problem:Pain Management Goal:Pain Completed [facility] Visit Details Visit Type -[facility] Star t of Care Discipline -Snf Problems Problem Start Date Status Goals Interventions Assess and Instruct Home Visit Disciplines: Snf 01/20/2021 Active 1 goal linked to scheduled/documented intervention 4 goal interventions scheduled/documented in this visit Medication Management Disciplines: Snf 01/20/2021 Active 1 goal linked to scheduled/documented intervention 1 goal intervention scheduled/documented in this visit Pain Management Disciplines: Snf 01/20/2021 Active 1 goal linked to scheduled/documented intervention 1 goal intervention scheduled/documented in this visit Goals Goal Associated Problem Outcome Goal Met? Visit Notes Home Care Plan Assess and Instruct Home Visit No Medications Medication Management No Pain Pain Management No Interventions Intervention Associated Problem/Goal Status Variance Visit Notes Falls Problem:Assess and Instruct Home Visit Goal:Home Care Plan Scheduled Safety Problem:Assess and Instruct Home Visit Goal:Home Care Plan Scheduled Discharge Planning Problem:Assess and Instruct Home Visit Goal:Home Care Plan Scheduled Plan for Next Visit Problem:Assess and Instruct Home Visit Goal:Home Care Plan Scheduled Instruct Medication Management Problem:Medication Management Goal:Medications Scheduled Assess Pain Characteristics and Current Pain Regimen and Instruct Methods of Pain Relief Problem:Pain Management Goal:Pain Scheduled [facility] Visit Details Visit Type -[facility] Star t of Care Discipline -Snf Problems Problem Start Date Status Goals Interventions Assess and Instruct Home Visit Disciplines: Snf 01/20/2021 Active 1 goal linked to scheduled/documented intervention 4 goal interventions scheduled/documented in this visit Medication Management Disciplines: Snf 01/20/2021 Active 1 goal linked to scheduled/documented intervention 1 goal intervention scheduled/documented in this visit Pain Management Disciplines: Snf 01/20/2021 Active 1 goal linked to scheduled/documented intervention 1 goal intervention scheduled/documented in this visit Goals Goal Associated Problem Outcome Goal Met? Visit Notes Home Care Plan Assess and Instruct Home Visit No Medications Medication Management No Pain Pain Management No Interventions Intervention Associated Problem/Goal Status Variance Visit Notes Falls Problem:Assess and Instruct Home Visit Goal:Home Care Plan Scheduled Safety Problem:Assess and Instruct Home Visit Goal:Home Care Plan Scheduled Discharge Planning Problem:Assess and Instruct Home Visit Goal:Home Care Plan Scheduled Plan for Next Visit Problem:Assess and Instruct Home Visit Goal:Home Care Plan Scheduled Instruct Medication Management Problem:Medication Management Goal:Medications Scheduled Assess Pain Characteristics and Current Pain Regimen and Instruct Methods of Pain Relief Problem:Pain Management Goal:Pain Scheduled [facility] Visit Details Visit Type -SN HH Routine Vi sit Discipline -Snf Problems Problem Start Date Status Goals Interventions Wound Care and/or Skin Problems Disciplines: Snf 01/20/2021 Active 1 goal linked to scheduled/documented intervention 1 goal intervention scheduled/documented in this visit Assess and Instruct Home Visit Disciplines: Snf 01/20/2021 Active 1 goal linked to scheduled/documented intervention 4 goal interventions scheduled/documented in this visit Medication Management Disciplines: Snf 01/20/2021 Active 1 goal linked to scheduled/documented intervention 1 goal intervention scheduled/documented in this visit Pain Management Disciplines: Snf 01/20/2021 Active 1 goal linked to scheduled/documented intervention 1 goal intervention scheduled/documented in this visit Goals Goal Associated Problem Outcome Goal Met? Visit Notes Drain/Tube Wound Care and/or Skin Problems No Home Care Plan Assess and Instruct Home Visit No Medications Medication Management No Pain Pain Management No Interventions Intervention Associated Problem/Goal Status Variance Visit Notes Instruct Drains/Tube(s) Problem:Wound Care and/or Skin Problems Goal:Drain/Tube Completed [place] Problem:Assess and Instruct Home Visit Goal:Home Care Plan Completed Safety Problem:Assess and Instruct Home Visit Goal:Home Care Plan Completed Discharge Planning Problem:Assess and Instruct Home Visit Goal:Home Care Plan Completed Plan for Next Visit Problem:Assess and Instruct Home Visit Goal:Home Care Plan Completed Instruct Medication Management Problem:Medication Management Goal:Medications Completed Assess Pain Characteristics and Current Pain Regimen and Instruct Methods of Pain Relief Problem:Pain Management Goal:Pain Completed documented in this encounter [facility]'s home Plan of care note* Visit Details Visit Type -[facility] Routine Vi sit Discipline -Snf Problems Problem Start Date Status Goals Interventions Wound Care and/or Skin Problems Disciplines: Snf 01/20/2021 Active 1 goal linked to scheduled/documented intervention 1 goal intervention scheduled/documented in this visit Assess and Instruct Home Visit Disciplines: Snf 01/20/2021 Active 1 goal linked to scheduled/documented intervention 4 goal interventions scheduled/documented in this visit Medication Management Disciplines: Snf 01/20/2021 Active 1 goal linked to scheduled/documented intervention 1 goal intervention scheduled/documented in this visit Pain Management Disciplines: Snf 01/20/2021 Active 1 goal linked to scheduled/documented intervention 1 goal intervention scheduled/documented in this visit Goals Goal Associated Problem Outcome Goal Met? Visit Notes Drain/Tube Wound Care and/or Skin Problems No Home Care Plan Assess and Instruct Home Visit No Medications Medication Management No Pain Pain Management No Interventions Intervention Associated Problem/Goal Status Variance Visit Notes Instruct Drains/Tube(s) Problem:Wound Care and/or Skin Problems Goal:Drain/Tube Completed Falls Problem:Assess and Instruct Home Visit Goal:Home Care Plan Completed Safety Problem:Assess and Instruct Home Visit Goal:Home Care Plan Completed Discharge Planning Problem:Assess and Instruct Home Visit Goal:Home Care Plan Completed Plan for Next Visit Problem:Assess and Instruct Home Visit Goal:Home Care Plan Completed Instruct Medication Management Problem:Medication Management Goal:Medications Completed Assess Pain Characteristics and Current Pain Regimen and Instruct Methods of Pain Relief Problem:Pain Management Goal:Pain Completed documented in this encounter [facility]'s home Plan of care note* Visit Details Visit Type -[facility] Routine Vi sit Discipline -Snf Problems Problem Start Date Status Goals Interventions Wound Care and/or Skin Problems Disciplines: Snf 01/20/2021 Active 1 goal linked to scheduled/documented intervention 1 goal intervention scheduled/documented in this visit Assess and Instruct Home Visit Disciplines: Snf 01/20/2021 Active 1 goal linked to scheduled/documented intervention 4 goal interventions scheduled/documented in this visit Medication Management Disciplines: Snf 01/20/2021 Active 1 goal linked to scheduled/documented intervention 1 goal intervention scheduled/documented in this visit Pain Management Disciplines: Snf 01/20/2021 Active 1 goal linked to scheduled/documented intervention 1 goal intervention scheduled/documented in this visit Goals Goal Associated Problem Outcome Goal Met? Visit Notes Drain/Tube Wound Care and/or Skin Problems No Home Care Plan Assess and Instruct Home Visit No Medications Medication Management No Pain Pain Management No Interventions Intervention Associated Problem/Goal Status Variance Visit Notes Instruct Drains/Tube(s) Problem:Wound Care and/or Skin Problems Goal:Drain/Tube Completed 400 removed from left side and 400 removed from right side patient tolerated well Falls Problem:Assess and Instruct Home Visit Goal:Home Care Plan Completed Clinician taught: patient and caregiver 4-10 Patient IS at risk for falls (a score of 6 or greater is a predictor of future falls) and clinician instructed: proper footwear, improved lighting, remove clutter and throw rugs, safe cord/tubing management (O2, IV, Electrical, Manriquez), non-slip mats in tubs/showers, handrails/grab bar placement, assistive device usage, keep frequently used items in reach and emergency response system and/or keep phone on you Patient/caregiver was able to demonstrate 99% via teachback Safety Problem:Assess and Instruct Home Visit Goal:Home Care Plan Completed Assessed patient vulnerability and home safety risks: as identified on careplan Equipment reviewed DME and available equipment Patient at risk for harm or abuse no Family members involved in safety plan for Level 2 or 3 no Discharge Planning Problem:Assess and Instruct Home Visit Goal:Home Care Plan Completed Home Visit DC Planning: Spoke with patient and/or caregiver about DC planning. Assessed for unsteady gait/poor balance DC will occur when: goals are met Anticipate DC: On time Patient and/or caregiver response to discharge planning education: agrees Plan for Next Visit Problem:Assess and Instruct Home Visit Goal:Home Care Plan Completed Follow up education for next visit: as listed on careplan- to include but not limited to diagnosis, medications, post op care, wound care Skilled intervention at next visit: cp assess Instruct Medication Management Problem:Medication Management Goal:Medications Completed Home Visit Med Education: Medication list reconciled. Medication profile and in-home medication list updated with appropriate changes. Discrepanices noted during home visit: none Instructed patient on dosing, purpose, and side effects. Medication education completed today on all medication(s). Patient/caregiver is able to teach back 100% of instruction. Assess Pain Characteristics and Current Pain Regimen and Instruct Methods of Pain Relief Problem:Pain Management Goal:Pain Com[facility] Visit Details Visit Type -[facility] Routine Vi sit Discipline -Snf Problems Problem Start Date Status Goals Interventions Wound Care and/or Skin Problems Disciplines: Snf 01/20/2021 Active 1 goal linked to scheduled/documented intervention 1 goal intervention scheduled/documented in this visit Assess and Instruct Home Visit Disciplines: Snf 01/20/2021 Active 1 goal linked to scheduled/documented intervention 4 goal interventions scheduled/documented in this visit Medication Management Disciplines: Snf 01/20/2021 Active 1 goal linked to scheduled/documented intervention 1 goal intervention scheduled/documented in this visit Pain Management Disciplines: Snf 01/20/2021 Active 1 goal linked to scheduled/documented intervention 1 goal intervention scheduled/documented in this visit Goals Goal Associated Problem Outcome Goal Met? Visit Notes Drain/Tube Wound Care and/or Skin Problems No Home Care Plan Assess and Instruct Home Visit No Medications Medication Management No Pain Pain Management No Interventions Intervention Associated Problem/Goal Status Variance Visit Notes Instruct Drains/Tube(s) Problem:Wound Care and/or Skin Problems Goal:Drain/Tube Completed Falls Problem:Assess and Instruct Home Visit Goal:Home Care Plan Completed Safety Problem:Assess and Instruct Home Visit Goal:Home Care Plan Completed Discharge Planning Problem:Assess and Instruct Home Visit Goal:Home Care Plan Completed Plan for Next Visit Problem:Assess and Instruct Home Visit Goal:Home Care Plan Completed Instruct Medication Management Problem:Medication Management Goal:Medications Completed Assess Pain Characteristics and Current Pain Regimen and Instruct Methods of Pain Relief Problem:Pain Management Goal:Pain Com[facility] Visit Details Visit Type -[facility] Discipline -Snf Problems Problem Start Date Status Goals Interventions Assess and Instruct Home Visit Disciplines: Snf 01/20/2021 Active 1 goal linked to scheduled/documented intervention 4 goal interventions scheduled/documented in this visit Medication Management Disciplines: Snf 01/20/2021 Active 1 goal linked to scheduled/documented intervention 1 goal intervention scheduled/documented in this visit Pain Management Disciplines: Snf 01/20/2021 Active 1 goal linked to scheduled/documented intervention 1 goal intervention scheduled/documented in this visit Goals Goal Associated Problem Outcome Goal Met? Visit Notes Home Care Plan Assess and Instruct Home Visit No Medications Medication Management No Pain Pain Management No Interventions Intervention Associated Problem/Goal Status Variance Visit Notes Falls Problem:Assess and Instruct Home Visit Goal:Home Care Plan Scheduled Safety Problem:Assess and Instruct Home Visit Goal:Home Care Plan Scheduled Discharge Planning Problem:Assess and Instruct Home Visit Goal:Home Care Plan Scheduled Plan for Next Visit Problem:Assess and Instruct Home Visit Goal:Home Care Plan Scheduled Instruct Medication Management Problem:Medication Management Goal:Medications Scheduled Assess Pain Characteristics and Current Pain Regimen and Instruct Methods of Pain Relief Problem:Pain Management Goal:Pain Scheduled [facility] Visit Details Visit Type -[facility] Routine Vi sit Discipline -Snf Problems Problem Start Date Status Goals Interventions Wound Care and/or Skin Problems Disciplines: Snf 01/20/2021 Active 1 goal linked to scheduled/documented intervention 1 goal intervention scheduled/documented in this visit Assess and Instruct Home Visit Disciplines: Snf 01/20/2021 Active 1 goal linked to scheduled/documented intervention 4 goal interventions scheduled/documented in this visit Medication Management Disciplines: Snf 01/20/2021 Active 1 goal linked to scheduled/documented intervention 1 goal intervention scheduled/documented in this visit Pain Management Disciplines: Snf 01/20/2021 Active 1 goal linked to scheduled/documented intervention 1 goal intervention scheduled/documented in this visit Goals Goal Associated Problem Outcome Goal Met? Visit Notes Drain/Tube Wound Care and/or Skin Problems No Home Care Plan Assess and Instruct Home Visit No Medications Medication Management No Pain Pain Management No Interventions Intervention Associated Problem/Goal Status Variance Visit Notes Instruct Drains/Tube(s) Problem:Wound Care and/or Skin Problems Goal:Drain/Tube Completed Falls Problem:Assess and Instruct Home Visit Goal:Home Care Plan Completed Safety Problem:Assess and Instruct Home Visit Goal:Home Care Plan Completed Discharge Planning Problem:Assess and Instruct Home Visit Goal:Home Care Plan Completed Plan for Next Visit Problem:Assess and Instruct Home Visit Goal:Home Care Plan Completed Instruct Medication Management Problem:Medication Management Goal:Medications Completed Assess Pain Characteristics and Current Pain Regimen and Instruct Methods of Pain Relief Problem:Pain Management Goal:Pain Completed documented in this encounter [facility] Plan of care note* Visit Details Visit Type -[facility] Routine Vi sit Discipline -Snf Problems Problem Start Date Status Goals Interventions Assess and Instruct Home Visit Disciplines: Snf 01/20/2021 Active 1 goal linked to scheduled/documented intervention 4 goal interventions scheduled/documented in this visit Medication Management Disciplines: Snf 01/20/2021 Active 1 goal linked to scheduled/documented intervention 1 goal intervention scheduled/documented in this visit Pain Management Disciplines: Snf 01/20/2021 Active 1 goal linked to scheduled/documented intervention 1 goal intervention scheduled/documented in this visit Goals Goal Associated Problem Outcome Goal Met? Visit Notes Home Care Plan Assess and Instruct Home Visit No Medications Medication Management No Pain Pain Management No Interventions Intervention Associated Problem/Goal Status Variance Visit Notes Falls Problem:Assess and Instruct Home Visit Goal:Home Care Plan Completed Safety Problem:Assess and Instruct Home Visit Goal:Home Care Plan Completed Discharge Planning Problem:Assess and Instruct Home Visit Goal:Home Care Plan Completed Plan for Next Visit Problem:Assess and Instruct Home Visit Goal:Home Care Plan Completed Instruct Medication Management Problem:Medication Management Goal:Medications Completed Assess Pain Characteristics and Current Pain Regimen and Instruct Methods of Pain Relief Problem:Pain Management Goal:Pain Completed [facility] Visit Details Visit Type -[facility] Routine Vi sit Discipline -Snf Problems Problem Start Date Status Goals Interventions Wound Care and/or Skin Problems Disciplines: Snf 01/20/2021 Active 1 goal linked to scheduled/documented intervention 1 goal intervention scheduled/documented in this visit Assess and Instruct Home Visit Disciplines: Snf 01/20/2021 Active 1 goal linked to scheduled/documented intervention 4 goal interventions scheduled/documented in this visit Medication Management Disciplines: Snf 01/20/2021 Active 1 goal linked to scheduled/documented intervention 1 goal intervention scheduled/documented in this visit Pain Management Disciplines: Snf 01/20/2021 Active 1 goal linked to scheduled/documented intervention 1 goal intervention scheduled/documented in this visit Goals Goal Associated Problem Outcome Goal Met? Visit Notes Drain/Tube Wound Care and/or Skin Problems No Home Care Plan Assess and Instruct Home Visit No Medications Medication Management No Pain Pain Management No Interventions Intervention Associated Problem/Goal Status Variance Visit Notes Instruct Drains/Tube(s) Problem:Wound Care and/or Skin Problems Goal:Drain/Tube Completed Falls Problem:Assess and Instruct Home Visit Goal:Home Care Plan Completed Safety Problem:Assess and Instruct Home Visit Goal:Home Care Plan Completed Discharge Planning Problem:Assess and Instruct Home Visit Goal:Home Care Plan Completed Plan for Next Visit Problem:Assess and Instruct Home Visit Goal:Home Care Plan Completed Instruct Medication Management Problem:Medication Management Goal:Medications Completed Assess Pain Characteristics and Current Pain Regimen and Instruct Methods of Pain Relief Problem:Pain Management Goal:Pain Completed [facility] Visit Details Visit Type -[facility] Routine Vi sit Discipline -Snf Problems Problem Start Date Status Goals Interventions Wound Care and/or Skin Problems Disciplines: Snf 01/20/2021 Active 1 goal linked to scheduled/documented intervention 1 goal intervention scheduled/documented in this visit Assess and Instruct Home Visit Disciplines: Snf 01/20/2021 Active 1 goal linked to scheduled/documented intervention 4 goal interventions scheduled/documented in this visit Medication Management Disciplines: Snf 01/20/2021 Active 1 goal linked to scheduled/documented intervention 1 goal intervention scheduled/documented in this visit Pain Management Disciplines: Snf 01/20/2021 Active 1 goal linked to scheduled/documented intervention 1 goal intervention scheduled/documented in this visit Goals Goal Associated Problem Outcome Goal Met? Visit Notes Drain/Tube Wound Care and/or Skin Problems No Home Care Plan Assess and Instruct Home Visit No Medications Medication Management No Pain Pain Management No Interventions Intervention Associated Problem/Goal Status Variance Visit Notes Instruct Drains/Tube(s) Problem:Wound Care and/or Skin Problems Goal:Drain/Tube Completed Falls Problem:Assess and Instruct Home Visit Goal:Home Care Plan Completed Safety Problem:Assess and Instruct Home Visit Goal:Home Care Plan Completed Discharge Planning Problem:Assess and Instruct Home Visit Goal:Home Care Plan Completed Plan for Next Visit Problem:Assess and Instruct Home Visit Goal:Home Care Plan Completed Instruct Medication Management Problem:Medication Management Goal:Medications Completed Assess Pain Characteristics and Current Pain Regimen and Instruct Methods of Pain Relief Problem:Pain Management Goal:Pain Completed [facility] Visit Details Visit Type -[facility] Routine Vi sit Discipline -Snf Problems Problem Start Date Status Goals Interventions Wound Care and/or Skin Problems Disciplines: Snf 01/20/2021 Active 1 goal linked to scheduled/documented intervention 1 goal intervention scheduled/documented in this visit Assess and Instruct Home Visit Disciplines: Snf 01/20/2021 Active 1 goal linked to scheduled/documented intervention 4 goal interventions scheduled/documented in this visit Medication Management Disciplines: Snf 01/20/2021 Active 1 goal linked to scheduled/documented intervention 1 goal intervention scheduled/documented in this visit Pain Management Disciplines: Snf 01/20/2021 Active 1 goal linked to scheduled/documented intervention 1 goal intervention scheduled/documented in this visit Goals Goal Associated Problem Outcome Goal Met? Visit Notes Drain/Tube Wound Care and/or Skin Problems No Home Care Plan Assess and Instruct Home Visit No Medications Medication Management No Pain Pain Management No Interventions Intervention Associated Problem/Goal Status Variance Visit Notes Instruct Drains/Tube(s) Problem:Wound Care and/or Skin Problems Goal:Drain/Tube Completed [facility] pleurex drains both drained without compliaction. Pt tolerated well. Falls Problem:Assess and Instruct Home Visit Goal:Home Care Plan Completed Clinician taught: patient and caregiver 4-10 Patient IS at risk for falls (a score of 6 or greater is a predictor of future falls) and clinician instructed: assistive device usage, keep frequently used items in reach and emergency response system and/or keep phone on you Patient/caregiver was able to demonstrate 100% via teachback Safety Problem:Assess and Instruct Home Visit Goal:Home Care Plan Completed Assessed patient vulnerability and home safety risks: none Equipment reviewed walker Patient at risk for harm or abuse no Family members involved in safety plan for Level 2 or 3 none Discharge Planning Problem:Assess and Instruct Home Visit Goal:Home Care Plan Completed Discharge from home care after there is no further skilled need. Plan for Next Visit Problem:Assess and Instruct Home Visit Goal:Home Care Plan Completed CP assess, VS, monitor dressing/wound care, medication education Instruct Medication Management Problem:Medication Management Goal:Medications Completed Home Visit Med Education: Medication list reconciled. Medication profile and in-home medication list updated with appropriate changes. Discrepanices noted during home visit: none Instructed patient on dosing, purpose, and side effects. Medication education completed today on all medication(s). Patient/caregiver is able to teach back 100% of instruction. Assess Pain Characteristics and Current Pain Regimen and Instruct Methods of Pain Relief Problem:Pain Management Goal:Pain Completed [facility] Visit Details Visit Type -[facility] Routine Vi sit Discipline -Snf Problems Problem Start Date Status Goals Interventions Wound Care and/or Skin Problems Disciplines: Snf 01/20/2021 Active 1 goal linked to scheduled/documented intervention 1 goal intervention scheduled/documented in this visit Assess and Instruct Home Visit Disciplines: Snf 01/20/2021 Active 1 goal linked to scheduled/documented intervention 4 goal interventions scheduled/documented in this visit Medication Management Disciplines: Snf 01/20/2021 Active 1 goal linked to scheduled/documented intervention 1 goal intervention scheduled/documented in this visit Pain Management Disciplines: Snf 01/20/2021 Active 1 goal linked to scheduled/documented intervention 1 goal intervention scheduled/documented in this visit Goals Goal Associated Problem Outcome Goal Met? Visit Notes Drain/Tube Wound Care and/or Skin Problems No Home Care Plan Assess and Instruct Home Visit No Medications Medication Management No Pain Pain Management No Interventions Intervention Associated Problem/Goal Status Variance Visit Notes Instruct Drains/Tube(s) Problem:Wound Care and/or Skin Problems Goal:Drain/Tube Completed Patient reports: minimal sob Clinician taught: patient and caregiver Clinician instructed on: dressing change Patient/caregiver is able to teach back 75% of instruction. Falls Problem:Assess and Instruct Home Visit Goal:Home Care Plan Completed Clinician taught: patient and caregiver 4-10 Patient IS at risk for falls (a score of 6 or greater is a predictor of future falls) and clinician instructed: proper footwear, improved lighting, remove clutter and throw rugs, safe cord/tubing management (O2, IV, Electrical, Manriquez), assistive device usage and keep frequently used items in reach Patient/caregiver was able to demonstrate 75% via teachback Safety Problem:Assess and Instruct Home Visit Goal:Home Care Plan Completed Assessed patient vulnerability and home safety risks: Yes Equipment reviewed oxygen Patient at risk for harm or abuse No Family members involved in safety plan for Level 2 or 3 Discharge Planning Problem:Assess and Instruct Home Visit Goal:Home Care Plan Completed Home Visit DC Planning: Spoke with patient and caregiver about DC planning. Assessed for dyspnea at rest or with exertion DC will occur when: patient/caregiver can teach back care Anticipate DC: Extended Patient and/or caregiver response to discharge planning education: Agree Plan for Next Visit Problem:Assess and Instruct Home Visit Goal:Home Care Plan Completed Follow up education for next visit: Medications Skilled intervention at next visit: CP/wound assesment. Plurex drains and dressing change Instruct Medication Management Problem:Medication Management Goal:Medications Completed Home Visit Med Education: Medication list reconciled. Medication profile and in-home medication list updated with appropriate changes. Discrepanices noted during home visit: none Instructed patient on dosing, purpose, and side effects. Medication education completed today on all medication(s). Patient/caregiver is able to teach back 75% of instruction. Assess Pain Characteristics and Current Pain Regimen and Instruct Methods of Pain Relief Problem:Pain Management Goal:Pain Com[facility] Visit Details Visit Type -[facility] Routine Vi sit Discipline -Snf Problems Problem Start Date Status Goals Interventions Wound Care and/or Skin Problems Disciplines: Snf 01/20/2021 Active 1 goal linked to scheduled/documented intervention 1 goal intervention scheduled/documented in this visit Assess and Instruct Home Visit Disciplines: Snf 01/20/2021 Active 1 goal linked to scheduled/documented intervention 4 goal interventions scheduled/documented in this visit Medication Management Disciplines: Snf 01/20/2021 Active 1 goal linked to scheduled/documented intervention 1 goal intervention scheduled/documented in this visit Pain Management Disciplines: Snf 01/20/2021 Active 1 goal linked to scheduled/documented intervention 1 goal intervention scheduled/documented in this visit Goals Goal Associated Problem Outcome Goal Met? Visit Notes Drain/Tube Wound Care and/or Skin Problems No Home Care Plan Assess and Instruct Home Visit No Medications Medication Management No Pain Pain Management No Interventions Intervention Associated Problem/Goal Status Variance Visit Notes Instruct Drains/Tube(s) Problem:Wound Care and/or Skin Problems Goal:Drain/Tube Completed Right drained via pleurx 400 cloudy yellow drainage Left drained via plerux 350 clear yellow drainage. Falls Problem:Assess and Instruct Home Visit Goal:Home Care Plan Completed denies falls Safety Problem:Assess and Instruct Home Visit Goal:Home Care Plan Completed Assessed patient vulnerability and home safety risks: environmental Equipment reviewed cane Patient at risk for harm or abuse none Family members involved in safety plan for Level 2 or 3 n/a Discharge Planning Problem:Assess and Instruct Home Visit Goal:Home Care Plan Completed Plan for Next Visit Problem:Assess and Instruct Home Visit Goal:Home Care Plan Completed Follow up education for next visit: drain pleurex, medication, disease: education and management, head to toe assessment Skilled intervention at next visit: same Instruct Medication Management Problem:Medication Management Goal:Medications Completed Home Visit Med Education: Medication list reconciled. Medication profile and in-home medication list updated with appropriate changes. Assess Pain Characteristics and Current Pain Regimen and Instruct Methods of Pain Relief Problem:Pain Management Goal:Pain Completed [facility] Visit Details Visit Type -[facility] Routine Vi sit Discipline -Snf Problems Problem Start Date Status Goals Interventions Wound Care and/or Skin Problems Disciplines: Snf 01/20/2021 Active 1 goal linked to scheduled/documented intervention 1 goal intervention scheduled/documented in this visit Assess and Instruct Home Visit Disciplines: Snf 01/20/2021 Active 1 goal linked to scheduled/documented intervention 4 goal interventions scheduled/documented in this visit Medication Management Disciplines: Snf 01/20/2021 Active 1 goal linked to scheduled/documented intervention 1 goal intervention scheduled/documented in this visit Pain Management Disciplines: Snf 01/20/2021 Active 1 goal linked to scheduled/documented intervention 1 goal intervention scheduled/documented in this visit Goals Goal Associated Problem Outcome Goal Met? Visit Notes Drain/Tube Wound Care and/or Skin Problems No Home Care Plan Assess and Instruct Home Visit No Medications Medication Management No Pain Pain Management No Interventions Intervention Associated Problem/Goal Status Variance Visit Notes Instruct Drains/Tube(s) Problem:Wound Care and/or Skin Problems Goal:Drain/Tube Completed [facility] drains emptied per policy. L 450ml hazy myra, R 325ml hazy yellow. Pt tolerated well. Falls Problem:Assess and Instruct Home Visit Goal:Home Care Plan Completed Clinician taught: patient and caregiver 4-10 Patient IS at risk for falls (a score of 6 or greater is a predictor of future falls) and clinician instructed: assistive device usage, keep frequently used items in reach and emergency response system and/or keep phone on you Patient/caregiver was able to demonstrate 100% via teachback Safety Problem:Assess and Instruct Home Visit Goal:Home Care Plan Completed Assessed patient vulnerability and home safety risks: none Equipment reviewed cane Patient at risk for harm or abuse no Family members involved in safety plan for Level 2 or 3 n/a Discharge Planning Problem:Assess and Instruct Home Visit Goal:Home Care Plan Completed Discharge from home care when there is no further a skilled need. Plan for Next Visit Problem:Assess and Instruct Home Visit Goal:Home Care Plan Completed CP assess, VS, monitor dressing/wound care, medication education Instruct Medication Management Problem:Medication Management Goal:Medications Completed Home Visit Med Education: Medication list reconciled. Medication profile and in-home medication list updated with appropriate changes. Discrepanices noted during home visit: none Instructed patient on dosing, purpose, and side effects. Medication education completed today on all medication(s). Patient/caregiver is able to teach back 100% of instruction. Assess Pain Characteristics and Current Pain Regimen and Instruct Methods of Pain Relief Problem:Pain Management Goal:Pain [facility] Visit Details Visit Type -SN HH Routine Vi sit Discipline -Snf Problems Problem Start Date Status Goals Interventions Assess and Instruct Home Visit Disciplines: Snf 01/20/2021 Active 1 goal linked to scheduled/documented intervention 4 goal interventions scheduled/documented in this visit Medication Management Disciplines: Snf 01/20/2021 Active 1 goal linked to scheduled/documented intervention 1 goal intervention scheduled/documented in this visit Pain Management Disciplines: Snf 01/20/2021 Active 1 goal linked to scheduled/documented intervention 1 goal intervention scheduled/documented in this visit Goals Goal Associated Problem Outcome Goal Met? Visit Notes Home Care Plan Assess and Instruct Home Visit No Medications Medication Management No Pain Pain Management No Interventions Intervention Associated Problem/Goal Status Variance Visit Notes Falls Problem:Assess and Instruct Home Visit Goal:Home Care Plan Completed Clinician taught: patient and caregiver 4-10 Patient IS at risk for falls (a score of 6 or greater is a predictor of future falls) and clinician instructed: proper footwear, improved lighting, remove clutter and throw rugs, safe cord/tubing management (O2, IV, Electrical, Manriquez), assistive device usage, keep frequently used items in reach and emergency response system and/or keep phone on you Patient/caregiver was able to demonstrate 90% via teachback Safety Problem:Assess and Instruct Home Visit Goal:Home Care Plan Completed Assessed patient vulnerability and home safety risks: environmental Equipment reviewed oxygen equipment and supllies, drain and supplies Patient at risk for falls Family members involved in safety plan for Level 2 or 3 n/a Discharge Planning Problem:Assess and Instruct Home Visit Goal:Home Care Plan Completed Home Visit DC Planning: Spoke with patient and caregiver about DC planning. DC will occur when: patient/caregiver is able to demonstrate safe ambulation, understanding of medications, mgmt of pleurex drainage, mgmt of oxygen equipment Anticipate DC: On time Patient and/or caregiver response to discharge planning education: verbalized understanding of care plan goals Plan for Next Visit Problem:Assess and Instruct Home Visit Goal:Home Care Plan Completed Follow up education for next visit: safe ambulation, medication purpose and side effects, S&S to report, oxygen mgmt, drain mgmt Skilled intervention at next visit: CP assess, dressing change and drain, education Instruct Medication Management Problem:Medication Management Goal:Medications Completed Home Visit Med Education: Medication list reconciled. Medication profile and in-home medication list updated with appropriate changes. Discrepanices noted during home visit: none Instructed patient on dosing, purpose, and side effects. Medication education completed today on routine medication(s). Patient/caregiver is able to teach back 90% of instruction. Assess Pain Characteristics and Current Pain Regimen and Instruct Methods of Pain Relief Problem:Pain Management Goal:Pain [facility] Visit Details Visit Type -SN HH OASIS Rece rt Discipline -Snf Problems Problem Start Date Status Goals Interventions Wound Care and/or Skin Problems Disciplines: Snf 01/20/2021 Active 1 goal linked to scheduled/documented intervention 1 goal intervention scheduled/documented in this visit Assess and Instruct Home Visit Disciplines: Snf 01/20/2021 Active 1 goal linked to scheduled/documented intervention 4 goal interventions scheduled/documented in this visit Medication Management Disciplines: Snf 01/20/2021 Active 1 goal linked to scheduled/documented intervention 1 goal intervention scheduled/documented in this visit Pain Management Disciplines: Snf 01/20/2021 Active 1 goal linked to scheduled/documented intervention 1 goal intervention scheduled/documented in this visit Goals Goal Associated Problem Outcome Goal Met? Visit Notes Drain/Tube Wound Care and/or Skin Problems No Home Care Plan Assess and Instruct Home Visit No Medications Medication Management No Pain Pain Management No Interventions Intervention Associated Problem/Goal Status Variance Visit Notes Instruct Drains/Tube(s) Problem:Wound Care and/or Skin Problems Goal:Drain/Tube Completed Pleurex drainings completed. Pt tolerated well. Pt's is able to complete the draining without difficulty. Falls Problem:Assess and Instruct Home Visit Goal:Home Care Plan Completed Clinician taught: patient and caregiver 4-10 Patient IS at risk for falls (a score of 6 or greater is a predictor of future falls) and clinician instructed: assistive device usage, keep frequently used items in reach and emergency response system and/or keep phone on you Patient/caregiver was able to demonstrate 100% via teachback Safety Problem:Assess and Instruct Home Visit Goal:Home Care Plan Completed Assessed patient vulnerability and home safety risks: none Equipment reviewed walker, pleurex drains Patient at risk for harm or abuse no Family members involved in safety plan for Level 2 or 3 n/a Discharge Planning Problem:Assess and Instruct Home Visit Goal:Home Care Plan Completed Discharge from home care after there is no furhter skilled need. Plan for Next Visit Problem:Assess and Instruct Home Visit Goal:Home Care Plan Completed CP assess, VS, monitor dressing/pleurex care, medication education Instruct Medication Management Problem:Medication Management Goal:Medications Completed Home Visit Med Education: Medication list reconciled. Medication profile and in-home medication list updated with appropriate changes. Discrepanices noted during home visit: none Instructed patient on dosing, purpose, and side effects. Medication education completed today on all medication(s). Patient/caregiver is able to teach back 100% of instruction. Assess Pain Characteristics and Current Pain Regimen and Instruct Methods of Pain Relief Problem:Pain Management Goal:Pain Completed [facility] Visit Details Visit Type -SN Missed Visit Discipline -Snf Problems Problem Start Date Status Goals Interventions Assess and Instruct Home Visit Disciplines: Snf 01/20/2021 Active 1 goal linked to scheduled/documented intervention 4 goal interventions scheduled/documented in this visit Medication Management Disciplines: Snf 01/20/2021 Active 1 goal linked to scheduled/documented intervention 1 goal intervention scheduled/documented in this visit Pain Management Disciplines: Snf 01/20/2021 Active 1 goal linked to scheduled/documented intervention 1 goal intervention scheduled/documented in this visit Goals Goal Associated Problem Outcome Goal Met? Visit Notes Home Care Plan Assess and Instruct Home Visit No Medications Medication Management No Pain Pain Management No Interventions Intervention Associated Problem/Goal Status Variance Visit Notes Falls Problem:Assess and Instruct Home Visit Goal:Home Care Plan Scheduled Safety Problem:Assess and Instruct Home Visit Goal:Home Care Plan Scheduled Discharge Planning Problem:Assess and Instruct Home Visit Goal:Home Care Plan Scheduled Plan for Next Visit Problem:Assess and Instruct Home Visit Goal:Home Care Plan Scheduled Instruct Medication Management Problem:Medication Management Goal:Medications Scheduled Assess Pain Characteristics and Current Pain Regimen and Instruct Methods of Pain Relief Problem:Pain Management Goal:Pain Scheduled [facility] Visit Details Visit Type -SN HH Routine Vi sit Discipline -Snf Problems Problem Start Date Status Goals Interventions Wound Care and/or Skin Problems Disciplines: Snf 01/20/2021 Active 1 goal linked to scheduled/documented intervention 1 goal intervention scheduled/documented in this visit Assess and Instruct Home Visit Disciplines: Snf 01/20/2021 Active 1 goal linked to scheduled/documented intervention 4 goal interventions scheduled/documented in this visit Medication Management Disciplines: Snf 01/20/2021 Active 1 goal linked to scheduled/documented intervention 1 goal intervention scheduled/documented in this visit Pain Management Disciplines: Snf 01/20/2021 Active 1 goal linked to scheduled/documented intervention 1 goal intervention scheduled/documented in this visit Goals Goal Associated Problem Outcome Goal Met? Visit Notes Drain/Tube Wound Care and/or Skin Problems No Home Care Plan Assess and Instruct Home Visit No Medications Medication Management No Pain Pain Management No Interventions Intervention Associated Problem/Goal Status Variance Visit Notes Instruct Drains/Tube(s) Problem:Wound Care and/or Skin Problems Goal:Drain/Tube Completed [facility] pleurex drains drained without difficulty today. Pt tolerated well. Falls Problem:Assess and Instruct Home Visit Goal:Home Care Plan Completed Clinician taught: patient and caregiver 4-10 Patient IS at risk for falls (a score of 6 or greater is a predictor of future falls) and clinician instructed: assistive device usage, keep frequently used items in reach and emergency response system and/or keep phone on you Patient/caregiver was able to demonstrate 100% via teachback Safety Problem:Assess and Instruct Home Visit Goal:Home Care Plan Completed Assessed patient vulnerability and home safety risks: none Equipment reviewed walker Patient at risk for harm or abuse no Family members involved in safety plan for Level 2 or 3 n/a Discharge Planning Problem:Assess and Instruct Home Visit Goal:Home Care Plan Completed Discharge from home care after there is no further skilled need. Plan for Next Visit Problem:Assess and Instruct Home Visit Goal:Home Care Plan Completed CP assess, VS, monitor dressing/wound care, medication education Instruct Medication Management Problem:Medication Management Goal:Medications Completed Home Visit Med Education: Medication list reconciled. Medication profile and in-home medication list updated with appropriate changes. Discrepanices noted during home visit: none Instructed patient on dosing, purpose, and side effects. Medication education completed today on all medication(s). Patient/caregiver is able to teach back 100 % of instruction. Assess Pain Characteristics and Current Pain Regimen and Instruct Methods of Pain Relief Problem:Pain Management Goal:Pain Completed [facility] Visit Details Visit Type -SN HH OASIS Rece rt Discipline -Snf Problems Problem Start Date Status Goals Interventions Wound Care and/or Skin Problems Disciplines: Snf 01/20/2021 Active 1 goal linked to scheduled/documented intervention 1 goal intervention scheduled/documented in this visit Assess and Instruct Home Visit Disciplines: Snf 01/20/2021 Active 1 goal linked to scheduled/documented intervention 4 goal interventions scheduled/documented in this visit Medication Management Disciplines: Snf 01/20/2021 Active 1 goal linked to scheduled/documented intervention 1 goal intervention scheduled/documented in this visit Pain Management Disciplines: Snf 01/20/2021 Active 1 goal linked to scheduled/documented intervention 1 goal intervention scheduled/documented in this visit Goals Goal Associated Problem Outcome Goal Met? Visit Notes Drain/Tube Wound Care and/or Skin Problems No Home Care Plan Assess and Instruct Home Visit No Medications Medication Management No Pain Pain Management No Interventions Intervention Associated Problem/Goal Status Variance Visit Notes Instruct Drains/Tube(s) Problem:Wound Care and/or Skin Problems Goal:Drain/Tube Completed Pleurex drainings completed. Pt tolerated well. Pt's is able to complete the draining without difficulty. Falls Problem:Assess and Instruct Home Visit Goal:Home Care Plan Completed Clinician taught: patient and caregiver 4-10 Patient IS at risk for falls (a score of 6 or greater is a predictor of future falls) and clinician instructed: assistive device usage, keep frequently used items in reach and emergency response system and/or keep phone on you Patient/caregiver was able to demonstrate 100% via teachback Safety Problem:Assess and Instruct Home Visit Goal:Home Care Plan Completed Assessed patient vulnerability and home safety risks: none Equipment reviewed walker, pleurex drains Patient at risk for harm or abuse no Family members involved in safety plan for Level 2 or 3 n/a Discharge Planning Problem:Assess and Instruct Home Visit Goal:Home Care Plan Completed Discharge from home care after there is no furhter skilled need. Plan for Next Visit Problem:Assess and Instruct Home Visit Goal:Home Care Plan Completed CP assess, VS, monitor dressing/pleurex care, medication education Instruct Medication Management Problem:Medication Management Goal:Medications Completed Home Visit Med Education: Medication list reconciled. Medication profile and in-home medication list updated with appropriate changes. Discrepanices noted during home visit: none Instructed patient on dosing, purpose, and side effects. Medication education completed today on all medication(s). Patient/caregiver is able to teach back 100% of instruction. Assess Pain Characteristics and Current Pain Regimen and Instruct Methods of Pain Relief Problem:Pain Management Goal:Pain Completed [facility] Visit Details Visit Type -SN HH Routine Vi sit Discipline -Snf Problems Problem Start Date Status Goals Interventions Wound Care and/or Skin Problems Disciplines: Snf 01/20/2021 Active 1 goal linked to scheduled/documented intervention 1 goal intervention scheduled/documented in this visit Assess and Instruct Home Visit Disciplines: Snf 01/20/2021 Active 1 goal linked to scheduled/documented intervention 4 goal interventions scheduled/documented in this visit Medication Management Disciplines: Snf 01/20/2021 Active 1 goal linked to scheduled/documented intervention 1 goal intervention scheduled/documented in this visit Pain Management Disciplines: Snf 01/20/2021 Active 1 goal linked to scheduled/documented intervention 1 goal intervention scheduled/documented in this visit Goals Goal Associated Problem Outcome Goal Met? Visit Notes Drain/Tube Wound Care and/or Skin Problems No Home Care Plan Assess and Instruct Home Visit No Medications Medication Management No Pain Pain Management No Interventions Intervention Associated Problem/Goal Status Variance Visit Notes Instruct Drains/Tube(s) Problem:Wound Care and/or Skin Problems Goal:Drain/Tube Completed [facility] pleurex catheters drained without complications. Pt tolerated well. Pt's spouse is completing the drains on the other days without issues. Falls Problem:Assess and Instruct Home Visit Goal:Home Care Plan Completed Clinician taught: patient and caregiver 4-10 Patient IS at risk for falls (a score of 6 or greater is a predictor of future falls) and clinician instructed: assistive device usage, keep frequently used items in reach and emergency response system and/or keep phone on you Patient/caregiver was able to demonstrate 100% via teachback Safety Problem:Assess and Instruct Home Visit Goal:Home Care Plan Completed Assessed patient vulnerability and home safety risks: none Equipment reviewed walker Patient at risk for harm or abuse no Family members involved in safety plan for Level 2 or 3 n/a Discharge Planning Problem:Assess and Instruct Home Visit Goal:Home Care Plan Completed Discharged from home care after there is no further skilled need. Plan for Next Visit Problem:Assess and Instruct Home Visit Goal:Home Care Plan Completed CP assess, VS, monitor dressing/ pleurex care, medication education Instruct Medication Management Problem:Medication Management Goal:Medications Completed Home Visit Med Education: Medication list reconciled. Medication profile and in-home medication list updated with appropriate changes. Discrepanices noted during home visit: none Instructed patient on dosing, purpose, and side effects. Medication education completed today on all medication(s). Patient/caregiver is able to teach back 100% of instruction. Assess Pain Characteristics and Current Pain Regimen and Instruct Methods of Pain Relief Problem:Pain Management Goal:Pain Com[facility] Visit Details Visit Type -SN HH Routine Vi sit Discipline -Snf Problems Problem Start Date Status Goals Interventions Wound Care and/or Skin Problems Disciplines: Snf 01/20/2021 Active 1 goal linked to scheduled/documented intervention 1 goal intervention scheduled/documented in this visit Assess and Instruct Home Visit Disciplines: Snf 01/20/2021 Active 1 goal linked to scheduled/documented intervention 4 goal interventions scheduled/documented in this visit Medication Management Disciplines: Snf 01/20/2021 Active 1 goal linked to scheduled/documented intervention 1 goal intervention scheduled/documented in this visit Pain Management Disciplines: Snf 01/20/2021 Active 1 goal linked to scheduled/documented intervention 1 goal intervention scheduled/documented in this visit Goals Goal Associated Problem Outcome Goal Met? Visit Notes Drain/Tube Wound Care and/or Skin Problems No Home Care Plan Assess and Instruct Home Visit No Medications Medication Management No Pain Pain Management No Interventions Intervention Associated Problem/Goal Status Variance Visit Notes Instruct Drains/Tube(s) Problem:Wound Care and/or Skin Problems Goal:Drain/Tube Completed [facility] pleurex drains drained without difficulty. Pt tolerated well. Falls Problem:Assess and Instruct Home Visit Goal:Home Care Plan Completed Clinician taught: patient and caregiver 4-10 Patient IS at risk for falls (a score of 6 or greater is a predictor of future falls) and clinician instructed: assistive device usage, keep frequently used items in reach and emergency response system and/or keep phone on you Patient/caregiver was able to demonstrate 100% via teachback Safety Problem:Assess and Instruct Home Visit Goal:Home Care Plan Completed Assessed patient vulnerability and home safety risks: none Equipment reviewed cane Patient at risk for harm or abuse no Family members involved in safety plan for Level 2 or 3 n/a Discharge Planning Problem:Assess and Instruct Home Visit Goal:Home Care Plan Completed Discharge from home care after there is no further skilled need. Plan for Next Visit Problem:Assess and Instruct Home Visit Goal:Home Care Plan Completed CP assess, VS, monitor dressing/wound care, medication education Instruct Medication Management Problem:Medication Management Goal:Medications Completed Home Visit Med Education: Medication list reconciled. Medication profile and in-home medication list updated with appropriate changes. Discrepanices noted during home visit: none Instructed patient on dosing, purpose, and side effects. Medication education completed today on all medication(s). Patient/caregiver is able to teach back 100% of instruction. Assess Pain Characteristics and Current Pain Regimen and Instruct Methods of Pain Relief Problem:Pain Management Goal:Pain Completed [facility] Visit Details Visit Type -SN Missed Visit Discipline -Snf Problems Problem Start Date Status Goals Interventions Assess and Instruct Home Visit Disciplines: Snf 01/20/2021 Active 1 goal linked to scheduled/documented intervention 4 goal interventions scheduled/documented in this visit Medication Management Disciplines: Snf 01/20/2021 Active 1 goal linked to scheduled/documented intervention 1 goal intervention scheduled/documented in this visit Pain Management Disciplines: Snf 01/20/2021 Active 1 goal linked to scheduled/documented intervention 1 goal intervention scheduled/documented in this visit Goals Goal Associated Problem Outcome Goal Met? Visit Notes Home Care Plan Assess and Instruct Home Visit No Medications Medication Management No Pain Pain Management No Interventions Intervention Associated Problem/Goal Status Variance Visit Notes Falls Problem:Assess and Instruct Home Visit Goal:Home Care Plan Scheduled Safety Problem:Assess and Instruct Home Visit Goal:Home Care Plan Scheduled Discharge Planning Problem:Assess and Instruct Home Visit Goal:Home Care Plan Scheduled Plan for Next Visit Problem:Assess and Instruct Home Visit Goal:Home Care Plan Scheduled Instruct Medication Management Problem:Medication Management Goal:Medications Scheduled Assess Pain Characteristics and Current Pain Regimen and Instruct Methods of Pain Relief Problem:Pain Management Goal:Pain Scheduled [facility] Visit Details Visit Type -SN HH Routine Vi sit Discipline -Snf Problems Problem Start Date Status Goals Interventions Wound Care and/or Skin Problems Disciplines: Snf 01/20/2021 Active 1 goal linked to scheduled/documented intervention 1 goal intervention scheduled/documented in this visit Assess and Instruct Home Visit Disciplines: Snf 01/20/2021 Active 1 goal linked to scheduled/documented intervention 4 goal interventions scheduled/documented in this visit Medication Management Disciplines: Snf 01/20/2021 Active 1 goal linked to scheduled/documented intervention 1 goal intervention scheduled/documented in this visit Pain Management Disciplines: Snf 01/20/2021 Active 1 goal linked to scheduled/documented intervention 1 goal intervention scheduled/documented in this visit Goals Goal Associated Problem Outcome Goal Met? Visit Notes Drain/Tube Wound Care and/or Skin Problems No Home Care Plan Assess and Instruct Home Visit No Medications Medication Management No Pain Pain Management No Interventions Intervention Associated Problem/Goal Status Variance Visit Notes Instruct Drains/Tube(s) Problem:Wound Care and/or Skin Problems Goal:Drain/Tube Completed [facility] pleurex drain catheters drained without issue.Pt tolerated well. Falls Problem:Assess and Instruct Home Visit Goal:Home Care Plan Completed Clinician taught: patient and caregiver 4-10 Patient IS at risk for falls (a score of 6 or greater is a predictor of future falls) and clinician instructed: assistive device usage, keep frequently used items in reach and emergency response system and/or keep phone on you Patient/caregiver was able to demonstrate 100% via teachback Safety Problem:Assess and Instruct Home Visit Goal:Home Care Plan Completed Assessed patient vulnerability and home safety risks: none Equipment reviewed walker Patient at risk for harm or abuse no Family members involved in safety plan for Level 2 or 3 n/a Discharge Planning Problem:Assess and Instruct Home Visit Goal:Home Care Plan Completed Discharge from home care after there is no further skilled need. Plan for Next Visit Problem:Assess and Instruct Home Visit Goal:Home Care Plan Completed CP assess, VS, monitor dressing/wound care, medication education Instruct Medication Management Problem:Medication Management Goal:Medications Completed Home Visit Med Education: Medication list reconciled. Medication profile and in-home medication list updated with appropriate changes. Discrepanices noted during home visit: none Instructed patient on dosing, purpose, and side effects. Medication education completed today on all medication(s). Patient/caregiver is able to teach back 100% of instruction. Assess Pain Characteristics and Current Pain Regimen and Instruct Methods of Pain Relief Problem:Pain Management Goal:Pain [facility] Visit Details Visit Type -SN HH Routine Vi sit Discipline -Snf Problems Problem Start Date Status Goals Interventions Wound Care and/or Skin Problems Disciplines: Snf 01/20/2021 Active 1 goal linked to scheduled/documented intervention 1 goal intervention scheduled/documented in this visit Assess and Instruct Home Visit Disciplines: Snf 01/20/2021 Active 1 goal linked to scheduled/documented intervention 4 goal interventions scheduled/documented in this visit Medication Management Disciplines: Snf 01/20/2021 Active 1 goal linked to scheduled/documented intervention 1 goal intervention scheduled/documented in this visit Pain Management Disciplines: Snf 01/20/2021 Active 1 goal linked to scheduled/documented intervention 1 goal intervention scheduled/documented in this visit Goals Goal Associated Problem Outcome Goal Met? Visit Notes Drain/Tube Wound Care and/or Skin Problems No Home Care Plan Assess and Instruct Home Visit No Medications Medication Management No Pain Pain Management No Interventions Intervention Associated Problem/Goal Status Variance Visit Notes Instruct Drains/Tube(s) Problem:Wound Care and/or Skin Problems Goal:Drain/Tube Completed [facility] pleurex catheters drained witihout difficulty. Pt tolerated well. Pt's is able to verbally teach back proper draining process. Falls Problem:Assess and Instruct Home Visit Goal:Home Care Plan Completed Clinician taught: patient and caregiver 4-10 Patient IS at risk for falls (a score of 6 or greater is a predictor of future falls) and clinician instructed: assistive device usage, keep frequently used items in reach and emergency response system and/or keep phone on you Patient/caregiver was able to demonstrate 100% via teachback Safety Problem:Assess and Instruct Home Visit Goal:Home Care Plan Completed Assessed patient vulnerability and home safety risks: none Equipment reviewed cane Patient at risk for harm or abuse no Family members involved in safety plan for Level 2 or 3 Discharge Planning Problem:Assess and Instruct Home Visit Goal:Home Care Plan Completed Discharge from home care after there is no further skilled need. Plan for Next Visit Problem:Assess and Instruct Home Visit Goal:Home Care Plan Completed CP assess, VS, monitor dressing/wound care, medication education Instruct Medication Management Problem:Medication Management Goal:Medications Completed Home Visit Med Education: Medication list reconciled. Medication profile and in-home medication list updated with appropriate changes. Discrepanices noted during home visit: none Instructed patient on dosing, purpose, and side effects. Medication education completed today on all medication(s). Patient/caregiver is able to teach back 100% of instruction. Assess Pain Characteristics and Current Pain Regimen and Instruct Methods of Pain Relief Problem:Pain Management Goal:Pain Com[facility] Visit Details Visit Type -SN HH OASIS Rece rt Discipline -Snf Problems Problem Start Date Status Goals Interventions Wound Care and/or Skin Problems Disciplines: Snf 01/20/2021 Active 1 goal linked to scheduled/documented intervention 1 goal intervention scheduled/documented in this visit Assess and Instruct Home Visit Disciplines: Snf 01/20/2021 Active 1 goal linked to scheduled/documented intervention 4 goal interventions scheduled/documented in this visit Medication Management Disciplines: Snf 01/20/2021 Active 1 goal linked to scheduled/documented intervention 1 goal intervention scheduled/documented in this visit Pain Management Disciplines: Snf 01/20/2021 Active 1 goal linked to scheduled/documented intervention 1 goal intervention scheduled/documented in this visit Goals Goal Associated Problem Outcome Goal Met? Visit Notes Drain/Tube Wound Care and/or Skin Problems No Home Care Plan Assess and Instruct Home Visit No Medications Medication Management No Pain Pain Management No Interventions Intervention Associated Problem/Goal Status Variance Visit Notes Instruct Drains/Tube(s) Problem:Wound Care and/or Skin Problems Goal:Drain/Tube Completed KHOI pleurex catheters drained without issue. Pt tolerated well. Falls Problem:Assess and Instruct Home Visit Goal:Home Care Plan Completed Clinician taught: patient and caregiver 4-10 Patient IS at risk for falls (a score of 6 or greater is a predictor of future falls) and clinician instructed: assistive device usage, keep frequently used items in reach and emergency response system and/or keep phone on you Patient/caregiver was able to demonstrate 100% via teachback Safety Problem:Assess and Instruct Home Visit Goal:Home Care Plan Completed Assessed patient vulnerability and home safety risks: none Equipment reviewed cane Patient at risk for harm or abuse no Family members involved in safety plan for Level 2 or 3 n/a Discharge Planning Problem:Assess and Instruct Home Visit Goal:Home Care Plan Completed Discharge from home care after there is no further skilled need. Plan for Next Visit Problem:Assess and Instruct Home Visit Goal:Home Care Plan Completed CP assess, VS, monitor dressing/wound care, medication education Instruct Medication Management Problem:Medication Management Goal:Medications Completed Home Visit Med Education: Medication list reconciled. Medication profile and in-home medication list updated with appropriate changes. Discrepanices noted during home visit: none Instructed patient on dosing, purpose, and side effects. Medication education completed today on all medication(s). Patient/caregiver is able to teach back 100% of instruction. Assess Pain Characteristics and Current Pain Regimen and Instruct Methods of Pain Relief Problem:Pain Management Goal:Pain Com[facility] Visit Details Visit Type -SN HH OASIS Rece rt Discipline -Snf Problems Problem Start Date Status Goals Interventions Wound Care and/or Skin Problems Disciplines: Snf 01/20/2021 Active 1 goal linked to scheduled/documented intervention 1 goal intervention scheduled/documented in this visit Assess and Instruct Home Visit Disciplines: Snf 01/20/2021 Active 1 goal linked to scheduled/documented intervention 4 goal interventions scheduled/documented in this visit Medication Management Disciplines: Snf 01/20/2021 Active 1 goal linked to scheduled/documented intervention 1 goal intervention scheduled/documented in this visit Pain Management Disciplines: Snf 01/20/2021 Active 1 goal linked to scheduled/documented intervention 1 goal intervention scheduled/documented in this visit Goals Goal Associated Problem Outcome Goal Met? Visit Notes Drain/Tube Wound Care and/or Skin Problems No Home Care Plan Assess and Instruct Home Visit No Medications Medication Management No Pain Pain Management No Interventions Intervention Associated Problem/Goal Status Variance Visit Notes Instruct Drains/Tube(s) Problem:Wound Care and/or Skin Problems Goal:Drain/Tube Completed K[facility]I pleurex catheters drained without issue. Pt tolerated well. Falls Problem:Assess and Instruct Home Visit Goal:Home Care Plan Completed Clinician taught: patient and caregiver 4-10 Patient IS at risk for falls (a score of 6 or greater is a predictor of future falls) and clinician instructed: assistive device usage, keep frequently used items in reach and emergency response system and/or keep phone on you Patient/caregiver was able to demonstrate 100% via teachback Safety Problem:Assess and Instruct Home Visit Goal:Home Care Plan Completed Assessed patient vulnerability and home safety risks: none Equipment reviewed cane Patient at risk for harm or abuse no Family members involved in safety plan for Level 2 or 3 n/a Discharge Planning Problem:Assess and Instruct Home Visit Goal:Home Care Plan Completed Discharge from home care after there is no further skilled need. Plan for Next Visit Problem:Assess and Instruct Home Visit Goal:Home Care Plan Completed CP assess, VS, monitor dressing/wound care, medication education Instruct Medication Management Problem:Medication Management Goal:Medications Completed Home Visit Med Education: Medication list reconciled. Medication profile and in-home medication list updated with appropriate changes. Discrepanices noted during home visit: none Instructed patient on dosing, purpose, and side effects. Medication education completed today on all medication(s). Patient/caregiver is able to teach back 100% of instruction. Assess Pain Characteristics and Current Pain Regimen and Instruct Methods of Pain Relief Problem:Pain Management Goal:Pain Com[facility] Visit Details Visit Type -SN HH Routine Vi sit Discipline -Snf Problems Problem Start Date Status Goals Interventions Wound Care and/or Skin Problems Disciplines: Snf 01/20/2021 Active 1 goal linked to scheduled/documented intervention 1 goal intervention scheduled/documented in this visit Assess and Instruct Home Visit Disciplines: Snf 01/20/2021 Active 1 goal linked to scheduled/documented intervention 4 goal interventions scheduled/documented in this visit Medication Management Disciplines: Snf 01/20/2021 Active 1 goal linked to scheduled/documented intervention 1 goal intervention scheduled/documented in this visit Pain Management Disciplines: Snf 01/20/2021 Active 1 goal linked to scheduled/documented intervention 1 goal intervention scheduled/documented in this visit Goals Goal Associated Problem Outcome Goal Met? Visit Notes Drain/Tube Wound Care and/or Skin Problems No Home Care Plan Assess and Instruct Home Visit No Medications Medication Management No Pain Pain Management No Interventions Intervention Associated Problem/Goal Status Variance Visit Notes Instruct Drains/Tube(s) Problem:Wound Care and/or Skin Problems Goal:Drain/Tube Completed [facility] plerex catheters drained without difficulty. Pt toletated well. Falls Problem:Assess and Instruct Home Visit Goal:Home Care Plan Completed Clinician taught: patient and caregiver 4-10 Patient IS at risk for falls (a score of 6 or greater is a predictor of future falls) and clinician instructed: assistive device usage, keep frequently used items in reach and emergency response system and/or keep phone on you Patient/caregiver was able to demonstrate 100% via teachback Safety Problem:Assess and Instruct Home Visit Goal:Home Care Plan Completed Assessed patient vulnerability and home safety risks: none Equipment reviewed cane Patient at risk for harm or abuse no Family members involved in safety plan for Level 2 or 3 n/a Discharge Planning Problem:Assess and Instruct Home Visit Goal:Home Care Plan Completed Discharge from home care after there is no further skilled need. Plan for Next Visit Problem:Assess and Instruct Home Visit Goal:Home Care Plan Completed CP assess, VS, monitor pleurex dressing/care, medication education Instruct Medication Management Problem:Medication Management Goal:Medications Completed Home Visit Med Education: Medication list reconciled. Medication profile and in-home medication list updated with appropriate changes. Discrepanices noted during home visit: none Instructed patient on dosing, purpose, and side effects. Medication education completed today on all medication(s). Patient/caregiver is able to teach back 100% of instruction. Assess Pain Characteristics and Current Pain Regimen and Instruct Methods of Pain Relief Problem:Pain Management Goal:Pain Com[facility] Visit Details Visit Type -SN HH Routine Vi sit Discipline -Snf Problems Problem Start Date Status Goals Interventions Wound Care and/or Skin Problems Disciplines: Snf 01/20/2021 Active 1 goal linked to scheduled/documented intervention 1 goal intervention scheduled/documented in this visit Assess and Instruct Home Visit Disciplines: Snf 01/20/2021 Active 1 goal linked to scheduled/documented intervention 4 goal interventions scheduled/documented in this visit Medication Management Disciplines: Snf 01/20/2021 Active 1 goal linked to scheduled/documented intervention 1 goal intervention scheduled/documented in this visit Pain Management Disciplines: Snf 01/20/2021 Active 1 goal linked to scheduled/documented intervention 1 goal intervention scheduled/documented in this visit Goals Goal Associated Problem Outcome Goal Met? Visit Notes Drain/Tube Wound Care and/or Skin Problems No Home Care Plan Assess and Instruct Home Visit No Medications Medication Management No Pain Pain Management No Interventions Intervention Associated Problem/Goal Status Variance Visit Notes Instruct Drains/Tube(s) Problem:Wound Care and/or Skin Problems Goal:Drain/Tube Completed Pt's is managing the pleurex drains well without difficulty through the week. When the pt's pleurex catheters are drained, he tolerates it well. Falls Problem:Assess and Instruct Home Visit Goal:Home Care Plan Completed Clinician taught: patient and caregiver 4-10 Patient IS at risk for falls (a score of 6 or greater is a predictor of future falls) and clinician instructed: assistive device usage, keep frequently used items in reach and emergency response system and/or keep phone on you Patient/caregiver was able to demonstrate 100% via teachback Safety Problem:Assess and Instruct Home Visit Goal:Home Care Plan Completed Assessed patient vulnerability and home safety risks: none Equipment reviewed cane Patient at risk for harm or abuse no Family members involved in safety plan for Level 2 or 3 n/a Discharge Planning Problem:Assess and Instruct Home Visit Goal:Home Care Plan Completed Discharge from home care after there is no further skilled need. Plan for Next Visit Problem:Assess and Instruct Home Visit Goal:Home Care Plan Completed CP assess, VS, monitor pleurex management/care, medication education Instruct Medication Management Problem:Medication Management Goal:Medications Completed Home Visit Med Education: Medication list reconciled. Medication profile and in-home medication list updated with appropriate changes. Discrepanices noted during home visit: none Instructed patient on dosing, purpose, and side effects. Medication education completed today on all medication(s). Patient/caregiver is able to teach back 100% of instruction. Assess Pain Characteristics and Current Pain Regimen and Instruct Methods of Pain Relief Problem:Pain Management Goal:Pain Completed [facility] Visit Details Visit Type -SN HH Routine Vi sit Discipline -Snf Problems Problem Start Date Status Goals Interventions Wound Care and/or Skin Problems Disciplines: Snf 01/20/2021 Active 1 goal linked to scheduled/documented intervention 1 goal intervention scheduled/documented in this visit Assess and Instruct Home Visit Disciplines: Snf 01/20/2021 Active 1 goal linked to scheduled/documented intervention 4 goal interventions scheduled/documented in this visit Medication Management Disciplines: Snf 01/20/2021 Active 1 goal linked to scheduled/documented intervention 1 goal intervention scheduled/documented in this visit Pain Management Disciplines: Snf 01/20/2021 Active 1 goal linked to scheduled/documented intervention 1 goal intervention scheduled/documented in this visit Goals Goal Associated Problem Outcome Goal Met? Visit Notes Drain/Tube Wound Care and/or Skin Problems No Home Care Plan Assess and Instruct Home Visit No Medications Medication Management No Pain Pain Management No Interventions Intervention Associated Problem/Goal Status Variance Visit Notes Instruct Drains/Tube(s) Problem:Wound Care and/or Skin Problems Goal:Drain/Tube Completed [facility] pleurex catheters drained without difficulty. Pt tolerated well. Falls Problem:Assess and Instruct Home Visit Goal:Home Care Plan Completed Clinician taught: patient and caregiver 4-10 Patient IS at risk for falls (a score of 6 or greater is a predictor of future falls) and clinician instructed: assistive device usage, keep frequently used items in reach and emergency response system and/or keep phone on you Patient/caregiver was able to demonstrate 100% via teachback Safety Problem:Assess and Instruct Home Visit Goal:Home Care Plan Completed Assessed patient vulnerability and home safety risks: none Equipment reviewed pleurex supplies, cane Patient at risk for harm or abuse no Family members involved in safety plan for Level 2 or 3 n/a Discharge Planning Problem:Assess and Instruct Home Visit Goal:Home Care Plan Completed Discharge from home care after there is no skilled need. Plan for Next Visit Problem:Assess and Instruct Home Visit Goal:Home Care Plan Completed CP assess, VS, monitor dressing/wound care, medication education Instruct Medication Management Problem:Medication Management Goal:Medications Completed Home Visit Med Education: Medication list reconciled. Medication profile and in-home medication list updated with appropriate changes. Discrepanices noted during home visit: none Instructed patient on dosing, purpose, and side effects. Medication education completed today on all medication(s). Patient/caregiver is able to teach back 100% of instruction. Assess Pain Characteristics and Current Pain Regimen and Instruct Methods of Pain Relief Problem:Pain Management Goal:Pain Completed [facility] Visit Details Visit Type -SN HH Routine Vi sit Discipline -Snf Problems Problem Start Date Status Goals Interventions Wound Care and/or Skin Problems Disciplines: Snf 01/20/2021 Active 1 goal linked to scheduled/documented intervention 1 goal intervention scheduled/documented in this visit Assess and Instruct Home Visit Disciplines: Snf 01/20/2021 Active 1 goal linked to scheduled/documented intervention 4 goal interventions scheduled/documented in this visit Medication Management Disciplines: Snf 01/20/2021 Active 1 goal linked to scheduled/documented intervention 1 goal intervention scheduled/documented in this visit Pain Management Disciplines: Snf 01/20/2021 Active 1 goal linked to scheduled/documented intervention 1 goal intervention scheduled/documented in this visit Goals Goal Associated Problem Outcome Goal Met? Visit Notes Drain/Tube Wound Care and/or Skin Problems No Home Care Plan Assess and Instruct Home Visit No Medications Medication Management No Pain Pain Management No Interventions Intervention Associated Problem/Goal Status Variance Visit Notes Instruct Drains/Tube(s) Problem:Wound Care and/or Skin Problems Goal:Drain/Tube Completed [facility] pleurex catheters drained without difficulty. Pt tolerated well. Falls Problem:Assess and Instruct Home Visit Goal:Home Care Plan Completed Clinician taught: patient and caregiver 4-10 Patient IS at risk for falls (a score of 6 or greater is a predictor of future falls) and clinician instructed: assistive device usage, keep frequently used items in reach and emergency response system and/or keep phone on you Patient/caregiver was able to demonstrate 100% via teachback Safety Problem:Assess and Instruct Home Visit Goal:Home Care Plan Completed Assessed patient vulnerability and home safety risks: none Equipment reviewed pleurex Patient at risk for harm or abuse no Family members involved in safety plan for Level 2 or 3 n/a Discharge Planning Problem:Assess and Instruct Home Visit Goal:Home Care Plan Completed Discharge from home care after there is no further skilled need. Plan for Next Visit Problem:Assess and Instruct Home Visit Goal:Home Care Plan Completed CP assess, VS, monitor dressing/wound care, medication education Instruct Medication Management Problem:Medication Management Goal:Medications Completed Home Visit Med Education: Medication list reconciled. Medication profile and in-home medication list updated with appropriate changes. Discrepanices noted during home visit: none Instructed patient on dosing, purpose, and side effects. Medication education completed today on all medication(s). Patient/caregiver is able to teach back 100% of instruction. Assess Pain Characteristics and Current Pain Regimen and Instruct Methods of Pain Relief Problem:Pain Management Goal:Pain Completed [facility] Visit Details Visit Type -SN HH Routine Vi sit Discipline -Snf Problems Problem Start Date Status Goals Interventions Wound Care and/or Skin Problems Disciplines: Snf 01/20/2021 Active 1 goal linked to scheduled/documented intervention 1 goal intervention scheduled/documented in this visit Assess and Instruct Home Visit Disciplines: Snf 01/20/2021 Active 1 goal linked to scheduled/documented intervention 4 goal interventions scheduled/documented in this visit Medication Management Disciplines: Snf 01/20/2021 Active 1 goal linked to scheduled/documented intervention 1 goal intervention scheduled/documented in this visit Pain Management Disciplines: Snf 01/20/2021 Active 1 goal linked to scheduled/documented intervention 1 goal intervention scheduled/documented in this visit Goals Goal Associated Problem Outcome Goal Met? Visit Notes Drain/Tube Wound Care and/or Skin Problems No Home Care Plan Assess and Instruct Home Visit No Medications Medication Management No Pain Pain Management No Interventions Intervention Associated Problem/Goal Status Variance Visit Notes Instruct Drains/Tube(s) Problem:Wound Care and/or Skin Problems Goal:Drain/Tube Completed Pleurex catheters drain without difficulty. Pt tolerated well. Dressings placed per policy. Falls Problem:Assess and Instruct Home Visit Goal:Home Care Plan Completed Clinician taught: patient and caregiver 4-10 Patient IS at risk for falls (a score of 6 or greater is a predictor of future falls) and clinician instructed: assistive device usage, keep frequently used items in reach and emergency response system and/or keep phone on you Patient/caregiver was able to demonstrate 100% via teachback Safety Problem:Assess and Instruct Home Visit Goal:Home Care Plan Completed Assessed patient vulnerability and home safety risks: none Equipment reviewed cane Patient at risk for harm or abuse no Family members involved in safety plan for Level 2 or 3 n/a Discharge Planning Problem:Assess and Instruct Home Visit Goal:Home Care Plan Completed D/c from home care after there is no further skilled need. Plan for Next Visit Problem:Assess and Instruct Home Visit Goal:Home Care Plan Completed CP assess, VS, monitor dressing/wound care, medication education Instruct Medication Management Problem:Medication Management Goal:Medications Completed Home Visit Med Education: Medication list reconciled. Medication profile and in-home medication list updated with appropriate changes. Discrepanices noted during home visit: none Instructed patient on dosing, purpose, and side effects. Medication education completed today on all medication(s). Patient/caregiver is able to teach back 100% of instruction. Assess Pain Characteristics and Current Pain Regimen and Instruct Methods of Pain Relief Problem:Pain Management Goal:Pain Completed [facility] Visit Details Visit Type -SN HH Routine Vi sit Discipline -Snf Problems Problem Start Date Status Goals Interventions Wound Care and/or Skin Problems Disciplines: Snf 01/20/2021 Active 1 goal linked to scheduled/documented intervention 1 goal intervention scheduled/documented in this visit Assess and Instruct Home Visit Disciplines: Snf 01/20/2021 Active 1 goal linked to scheduled/documented intervention 4 goal interventions scheduled/documented in this visit Medication Management Disciplines: Snf 01/20/2021 Active 1 goal linked to scheduled/documented intervention 1 goal intervention scheduled/documented in this visit Pain Management Disciplines: Snf 01/20/2021 Active 1 goal linked to scheduled/documented intervention 1 goal intervention scheduled/documented in this visit Goals Goal Associated Problem Outcome Goal Met? Visit Notes Drain/Tube Wound Care and/or Skin Problems No Home Care Plan Assess and Instruct Home Visit No Medications Medication Management No Pain Pain Management No Interventions Intervention Associated Problem/Goal Status Variance Visit Notes Instruct Drains/Tube(s) Problem:Wound Care and/or Skin Problems Goal:Drain/Tube Completed [facility] pleurex catheters drained without difficulty. Pt tolerated well. Falls Problem:Assess and Instruct Home Visit Goal:Home Care Plan Completed Clinician taught: patient and caregiver 4-10 Patient IS at risk for falls (a score of 6 or greater is a predictor of future falls) and clinician instructed: assistive device usage, keep frequently used items in reach and emergency response system and/or keep phone on you Patient/caregiver was able to demonstrate 100% via teachback Safety Problem:Assess and Instruct Home Visit Goal:Home Care Plan Completed Assessed patient vulnerability and home safety risks: none Equipment reviewed cane, O2 equipment Patient at risk for harm or abuse no Family members involved in safety plan for Level 2 or 3 n/a Discharge Planning Problem:Assess and Instruct Home Visit Goal:Home Care Plan Completed Discharge from home care after there is no further skilled need. Plan for Next Visit Problem:Assess and Instruct Home Visit Goal:Home Care Plan Completed CP assess, VS, monitor dressing/wound care, medication education Instruct Medication Management Problem:Medication Management Goal:Medications Completed Home Visit Med Education: Medication list reconciled. Medication profile and in-home medication list updated with appropriate changes. Discrepanices noted during home visit: none Instructed patient on dosing, purpose, and side effects. Medication education completed today on all medication(s). Patient/caregiver is able to teach back 100% of instruction. Assess Pain Characteristics and Current Pain Regimen and Instruct Methods of Pain Relief Problem:Pain Management Goal:Pain [facility] Visit Details Visit Type -SN HH Routine Vi sit Discipline -Snf Problems Problem Start Date Status Goals Interventions Wound Care and/or Skin Problems Disciplines: Snf 01/20/2021 Active 1 goal linked to scheduled/documented intervention 1 goal intervention scheduled/documented in this visit Assess and Instruct Home Visit Disciplines: Snf 01/20/2021 Active 1 goal linked to scheduled/documented intervention 4 goal interventions scheduled/documented in this visit Medication Management Disciplines: Snf 01/20/2021 Active 1 goal linked to scheduled/documented intervention 1 goal intervention scheduled/documented in this visit Pain Management Disciplines: Snf 01/20/2021 Active 1 goal linked to scheduled/documented intervention 1 goal intervention scheduled/documented in this visit Goals Goal Associated Problem Outcome Goal Met? Visit Notes Drain/Tube Wound Care and/or Skin Problems No Home Care Plan Assess and Instruct Home Visit No Medications Medication Management No Pain Pain Management No Interventions Intervention Associated Problem/Goal Status Variance Visit Notes Instruct Drains/Tube(s) Problem:Wound Care and/or Skin Problems Goal:Drain/Tube Completed [facility] pleurex catheters drained without difficulty. Pt tolerated well. Falls Problem:Assess and Instruct Home Visit Goal:Home Care Plan Completed Clinician taught: patient 4-10 Patient IS at risk for falls (a score of 6 or greater is a predictor of future falls) and clinician instructed: assistive device usage, keep frequently used items in reach and emergency response system and/or keep phone on you Patient/caregiver was able to demonstrate 100% via teachback Safety Problem:Assess and Instruct Home Visit Goal:Home Care Plan Completed Assessed patient vulnerability and home safety risks: none Equipment reviewed cane Patient at risk for harm or abuse no Family members involved in safety plan for Level 2 or 3 n/a Discharge Planning Problem:Assess and Instruct Home Visit Goal:Home Care Plan Completed Discharge from home care after there is no further skilled need. Plan for Next Visit Problem:Assess and Instruct Home Visit Goal:Home Care Plan Completed CP assess, VS, monitor Pleurex catheter care/progress, medication education Instruct Medication Management Problem:Medication Management Goal:Medications Completed Home Visit Med Education: Medication list reconciled. Medication profile and in-home medication list updated with appropriate changes. Discrepanices noted during home visit: none Instructed patient on dosing, purpose, and side effects. Medication education completed today on all medication(s). Patient/caregiver is able to teach back 100% of instruction. Assess Pain Characteristics and Current Pain Regimen and Instruct Methods of Pain Relief Problem:Pain Management Goal:Pain Completed [facility] Visit Details Visit Type -SN HH OASIS Guerrero sfer Discipline -Snf Problems Problem Start Date Status Goals Interventions Assess and Instruct Home Visit Disciplines: Snf 01/20/2021 Active 1 goal linked to scheduled/documented intervention 4 goal interventions scheduled/documented in this visit Medication Management Disciplines: Snf 01/20/2021 Active 1 goal linked to scheduled/documented intervention 1 goal intervention scheduled/documented in this visit Pain Management Disciplines: Snf 01/20/2021 Active 1 goal linked to scheduled/documented intervention 1 goal intervention scheduled/documented in this visit Goals Goal Associated Problem Outcome Goal Met? Visit Notes Home Care Plan Assess and Instruct Home Visit No Medications Medication Management No Pain Pain Management No Interventions Intervention Associated Problem/Goal Status Variance Visit Notes Falls Problem:Assess and Instruct Home Visit Goal:Home Care Plan Scheduled Safety Problem:Assess and Instruct Home Visit Goal:Home Care Plan Scheduled Discharge Planning Problem:Assess and Instruct Home Visit Goal:Home Care Plan Scheduled Plan for Next Visit Problem:Assess and Instruct Home Visit Goal:Home Care Plan Scheduled Instruct Medication Management Problem:Medication Management Goal:Medications Scheduled Assess Pain Characteristics and Current Pain Regimen and Instruct Methods of Pain Relief Problem:Pain Management Goal:Pain [facility] Visit Details Visit Type -SN HH OASIS Resu mption of Care Discipline -Snf Problems Problem Start Date Status Goals Interventions Wound Care and/or Skin Problems Disciplines: Snf 01/20/2021 Active 1 goal linked to scheduled/documented intervention 1 goal intervention scheduled/documented in this visit Assess and Instruct Home Visit Disciplines: Snf 01/20/2021 Active 1 goal linked to scheduled/documented intervention 4 goal interventions scheduled/documented in this visit Medication Management Disciplines: Snf 01/20/2021 Active 1 goal linked to scheduled/documented intervention 1 goal intervention scheduled/documented in this visit Pain Management Disciplines: Snf 01/20/2021 Active 1 goal linked to scheduled/documented intervention 1 goal intervention scheduled/documented in this visit Goals Goal Associated Problem Outcome Goal Met? Visit Notes Drain/Tube Wound Care and/or Skin Problems No Home Care Plan Assess and Instruct Home Visit No Medications Medication Management No Pain Pain Management No Interventions Intervention Associated Problem/Goal Status Variance Visit Notes Instruct Drains/Tube(s) Problem:Wound Care and/or Skin Problems Goal:Drain/Tube Completed [facility] pleurex catheters drained without issues. The R side drained less than previously, and this was relayed to Dr Sparks's office. Falls Problem:Assess and Instruct Home Visit Goal:Home Care Plan Completed Clinician taught: patient and caregiver 4-10 Patient IS at risk for falls (a score of 6 or greater is a predictor of future falls) and clinician instructed: assistive device usage, keep frequently used items in reach and emergency response system and/or keep phone on you Patient/caregiver was able to demonstrate 100% via teachback Safety Problem:Assess and Instruct Home Visit Goal:Home Care Plan Completed Assessed patient vulnerability and home safety risks: none Equipment reviewed cane/walker Patient at risk for harm or abuse no Family members involved in safety plan for Level 2 or 3 n/a Discharge Planning Problem:Assess and Instruct Home Visit Goal:Home Care Plan Completed Discharge from home care after there is no further skilled need. Plan for Next Visit Problem:Assess and Instruct Home Visit Goal:Home Care Plan Completed CP assess, VS, monitor dressing/wound care, medication education Instruct Medication Management Problem:Medication Management Goal:Medications Completed Home Visit Med Education: Medication list reconciled. Medication profile and in-home medication list updated with appropriate changes. Discrepanices noted during home visit: none Instructed patient on dosing, purpose, and side effects. Medication education completed today on all medication(s). Patient/caregiver is able to teach back 100% of instruction. Assess Pain Characteristics and Current Pain Regimen and Instruct Methods of Pain Relief Problem:Pain Management Goal:Pain Com[facility] Visit Details Visit Type -SN HH OASIS Resu mption of Care Discipline -Snf Problems Problem Start Date Status Goals Interventions Wound Care and/or Skin Problems Disciplines: Snf 01/20/2021 Active 1 goal linked to scheduled/documented intervention 1 goal intervention scheduled/documented in this visit Assess and Instruct Home Visit Disciplines: Snf 01/20/2021 Active 1 goal linked to scheduled/documented intervention 4 goal interventions scheduled/documented in this visit Medication Management Disciplines: Snf 01/20/2021 Active 1 goal linked to scheduled/documented intervention 1 goal intervention scheduled/documented in this visit Pain Management Disciplines: Snf 01/20/2021 Active 1 goal linked to scheduled/documented intervention 1 goal intervention scheduled/documented in this visit Goals Goal Associated Problem Outcome Goal Met? Visit Notes Drain/Tube Wound Care and/or Skin Problems No Home Care Plan Assess and Instruct Home Visit No Medications Medication Management No Pain Pain Management No Interventions Intervention Associated Problem/Goal Status Variance Visit Notes Instruct Drains/Tube(s) Problem:Wound Care and/or Skin Problems Goal:Drain/Tube Completed [facility] pleurex catheters drained without issues. The R side drained less than previously, and this was relayed to Dr Sparks's office. Falls Problem:Assess and Instruct Home Visit Goal:Home Care Plan Completed Clinician taught: patient and caregiver 4-10 Patient IS at risk for falls (a score of 6 or greater is a predictor of future falls) and clinician instructed: assistive device usage, keep frequently used items in reach and emergency response system and/or keep phone on you Patient/caregiver was able to demonstrate 100% via teachback Safety Problem:Assess and Instruct Home Visit Goal:Home Care Plan Completed Assessed patient vulnerability and home safety risks: none Equipment reviewed cane/walker Patient at risk for harm or abuse no Family members involved in safety plan for Level 2 or 3 n/a Discharge Planning Problem:Assess and Instruct Home Visit Goal:Home Care Plan Completed Discharge from home care after there is no further skilled need. Plan for Next Visit Problem:Assess and Instruct Home Visit Goal:Home Care Plan Completed CP assess, VS, monitor dressing/wound care, medication education Instruct Medication Management Problem:Medication Management Goal:Medications Completed Home Visit Med Education: Medication list reconciled. Medication profile and in-home medication list updated with appropriate changes. Discrepanices noted during home visit: none Instructed patient on dosing, purpose, and side effects. Medication education completed today on all medication(s). Patient/caregiver is able to teach back 100% of instruction. Assess Pain Characteristics and Current Pain Regimen and Instruct Methods of Pain Relief Problem:Pain Management Goal:Pain Completed [facility] Visit Details Visit Type -SN HH Routine Vi sit Discipline -Snf Problems Problem Start Date Status Goals Interventions Wound Care and/or Skin Problems Disciplines: Snf 01/20/2021 Active 1 goal linked to scheduled/documented intervention 1 goal intervention scheduled/documented in this visit Assess and Instruct Home Visit Disciplines: Snf 01/20/2021 Active 1 goal linked to scheduled/documented intervention 4 goal interventions scheduled/documented in this visit Medication Management Disciplines: Snf 01/20/2021 Active 1 goal linked to scheduled/documented intervention 1 goal intervention scheduled/documented in this visit Pain Management Disciplines: Snf 01/20/2021 Active 1 goal linked to scheduled/documented intervention 1 goal intervention scheduled/documented in this visit Goals Goal Associated Problem Outcome Goal Met? Visit Notes Drain/Tube Wound Care and/or Skin Problems No Home Care Plan Assess and Instruct Home Visit No Medications Medication Management No Pain Pain Management No Interventions Intervention Associated Problem/Goal Status Variance Visit Notes Instruct Drains/Tube(s) Problem:Wound Care and/or Skin Problems Goal:Drain/Tube Completed Pleurex catheters were not drained today d/t lower drain amounts. This info was left in a message for Dr Sparks's nurse. Falls Problem:Assess and Instruct Home Visit Goal:Home Care Plan Completed Clinician taught: patient and caregiver 4-10 Patient IS at risk for falls (a score of 6 or greater is a predictor of future falls) and clinician instructed: assistive device usage, keep frequently used items in reach and emergency response system and/or keep phone on you Patient/caregiver was able to demonstrate 100% via teachback Safety Problem:Assess and Instruct Home Visit Goal:Home Care Plan Completed Assessed patient vulnerability and home safety risks: none Equipment reviewed walker, oxygen, pleurex equipment Patient at risk for harm or abuse no Family members involved in safety plan for Level 2 or 3 n/a Discharge Planning Problem:Assess and Instruct Home Visit Goal:Home Care Plan Completed Discharge from home care after there is no further skilled need. Plan for Next Visit Problem:Assess and Instruct Home Visit Goal:Home Care Plan Completed CP assess, VS, medication education, Pleurex catheter care, monitoring, education Instruct Medication Management Problem:Medication Management Goal:Medications Completed Home Visit Med Education: Medication list reconciled. Medication profile and in-home medication list updated with appropriate changes. Discrepanices noted during home visit: none Instructed patient on dosing, purpose, and side effects. Medication education completed today on all medication(s). Patient/caregiver is able to teach back 100% of instruction. Assess Pain Characteristics and Current Pain Regimen and Instruct Methods of Pain Relief Problem:Pain Management Goal:Pain Completed [facility] Visit Details Visit Type -SN HH OASIS Rece rt Discipline -Snf Problems Problem Start Date Status Goals Interventions Assess and Instruct Home Visit Disciplines: Snf 01/20/2021 Active 1 goal linked to scheduled/documented intervention 4 goal interventions scheduled/documented in this visit Medication Management Disciplines: Snf 01/20/2021 Active 1 goal linked to scheduled/documented intervention 1 goal intervention scheduled/documented in this visit Pain Management Disciplines: Snf 01/20/2021 Active 1 goal linked to scheduled/documented intervention 1 goal intervention scheduled/documented in this visit Goals Goal Associated Problem Outcome Goal Met? Visit Notes Home Care Plan Assess and Instruct Home Visit No Medications Medication Management No Pain Pain Management No Interventions Intervention Associated Problem/Goal Status Variance Visit Notes Falls Problem:Assess and Instruct Home Visit Goal:Home Care Plan Scheduled Safety Problem:Assess and Instruct Home Visit Goal:Home Care Plan Scheduled Discharge Planning Problem:Assess and Instruct Home Visit Goal:Home Care Plan Scheduled Plan for Next Visit Problem:Assess and Instruct Home Visit Goal:Home Care Plan Scheduled Instruct Medication Management Problem:Medication Management Goal:Medications Scheduled Assess Pain Characteristics and Current Pain Regimen and Instruct Methods of Pain Relief Problem:Pain Management Goal:Pain Scheduled [facility] Visit Details Visit Type -SN HH OASIS Rece rt Discipline -Snf Problems Problem Start Date Status Goals Interventions Assess and Instruct Home Visit Disciplines: Snf 01/20/2021 Active 1 goal linked to scheduled/documented intervention 4 goal interventions scheduled/documented in this visit Medication Management Disciplines: Snf 01/20/2021 Active 1 goal linked to scheduled/documented intervention 1 goal intervention scheduled/documented in this visit Pain Management Disciplines: Snf 01/20/2021 Active 1 goal linked to scheduled/documented intervention 1 goal intervention scheduled/documented in this visit Goals Goal Associated Problem Outcome Goal Met? Visit Notes Home Care Plan Assess and Instruct Home Visit No Medications Medication Management No Pain Pain Management No Interventions Intervention Associated Problem/Goal Status Variance Visit Notes Falls Problem:Assess and Instruct Home Visit Goal:Home Care Plan Scheduled Safety Problem:Assess and Instruct Home Visit Goal:Home Care Plan Scheduled Discharge Planning Problem:Assess and Instruct Home Visit Goal:Home Care Plan Scheduled Plan for Next Visit Problem:Assess and Instruct Home Visit Goal:Home Care Plan Scheduled Instruct Medication Management Problem:Medication Management Goal:Medications Scheduled Assess Pain Characteristics and Current Pain Regimen and Instruct Methods of Pain Relief Problem:Pain Management Goal:Pain Scheduled [facility] Visit Details Visit Type -SN HH OASIS Resu mption of Care Discipline -Snf Problems Problem Start Date Status Goals Interventions Wound Care and/or Skin Problems Disciplines: Snf 01/20/2021 Active 1 goal linked to scheduled/documented intervention 1 goal intervention scheduled/documented in this visit Assess and Instruct Home Visit Disciplines: Snf 01/20/2021 Active 1 goal linked to scheduled/documented intervention 4 goal interventions scheduled/documented in this visit Medication Management Disciplines: Snf 01/20/2021 Active 1 goal linked to scheduled/documented intervention 1 goal intervention scheduled/documented in this visit Pain Management Disciplines: Snf 01/20/2021 Active 1 goal linked to scheduled/documented intervention 1 goal intervention scheduled/documented in this visit Goals Goal Associated Problem Outcome Goal Met? Visit Notes Drain/Tube Wound Care and/or Skin Problems No Home Care Plan Assess and Instruct Home Visit No Medications Medication Management No Pain Pain Management No Interventions Intervention Associated Problem/Goal Status Variance Visit Notes Instruct Drains/Tube(s) Problem:Wound Care and/or Skin Problems Goal:Drain/Tube Completed [facility] pleurex catheters drained without issues. The R side drained less than previously, and this was relayed to Dr Sparks's office. Falls Problem:Assess and Instruct Home Visit Goal:Home Care Plan Completed Clinician taught: patient and caregiver 4-10 Patient IS at risk for falls (a score of 6 or greater is a predictor of future falls) and clinician instructed: assistive device usage, keep frequently used items in reach and emergency response system and/or keep phone on you Patient/caregiver was able to demonstrate 100% via teachback Safety Problem:Assess and Instruct Home Visit Goal:Home Care Plan Completed Assessed patient vulnerability and home safety risks: none Equipment reviewed cane/walker Patient at risk for harm or abuse no Family members involved in safety plan for Level 2 or 3 n/a Discharge Planning Problem:Assess and Instruct Home Visit Goal:Home Care Plan Completed Discharge from home care after there is no further skilled need. Plan for Next Visit Problem:Assess and Instruct Home Visit Goal:Home Care Plan Completed CP assess, VS, monitor dressing/wound care, medication education Instruct Medication Management Problem:Medication Management Goal:Medications Completed Home Visit Med Education: Medication list reconciled. Medication profile and in-home medication list updated with appropriate changes. Discrepanices noted during home visit: none Instructed patient on dosing, purpose, and side effects. Medication education completed today on all medication(s). Patient/caregiver is able to teach back 100% of instruction. Assess Pain Characteristics and Current Pain Regimen and Instruct Methods of Pain Relief Problem:Pain Management Goal:Pain Completed [facility] Visit Details Visit Type -SN HH Routine Vi sit Discipline -Snf Problems Problem Start Date Status Goals Interventions Wound Care and/or Skin Problems Disciplines: Snf 01/20/2021 Active 1 goal linked to scheduled/documented intervention 1 goal intervention scheduled/documented in this visit Assess and Instruct Home Visit Disciplines: Snf 01/20/2021 Active 1 goal linked to scheduled/documented intervention 4 goal interventions scheduled/documented in this visit Medication Management Disciplines: Snf 01/20/2021 Active 1 goal linked to scheduled/documented intervention 1 goal intervention scheduled/documented in this visit Pain Management Disciplines: Snf 01/20/2021 Active 1 goal linked to scheduled/documented intervention 1 goal intervention scheduled/documented in this visit Goals Goal Associated Problem Outcome Goal Met? Visit Notes Drain/Tube Wound Care and/or Skin Problems No Home Care Plan Assess and Instruct Home Visit No Medications Medication Management No Pain Pain Management No Interventions Intervention Associated Problem/Goal Status Variance Visit Notes Instruct Drains/Tube(s) Problem:Wound Care and/or Skin Problems Goal:Drain/Tube Completed [facility] pleurex catheters drained attempted. 0ml out of both. Falls Problem:Assess and Instruct Home Visit Goal:Home Care Plan Completed Clinician taught: patient and caregiver 4-10 Patient IS at risk for falls (a score of 6 or greater is a predictor of future falls) and clinician instructed: assistive device usage, keep frequently used items in reach and emergency response system and/or keep phone on you Patient/caregiver was able to demonstrate 100% via teachback Safety Problem:Assess and Instruct Home Visit Goal:Home Care Plan Completed Assessed patient vulnerability and home safety risks: none Equipment reviewed walker, pleurex catheters, oxygen Patient at risk for harm or abuse no Family members involved in safety plan for Level 2 or 3 n/a Discharge Planning Problem:Assess and Instruct Home Visit Goal:Home Care Plan Completed Discharge from home care after there is no further skilled need. Plan for Next Visit Problem:Assess and Instruct Home Visit Goal:Home Care Plan Completed CP assess, VS, monitor dressing/wound care, medication education Instruct Medication Management Problem:Medication Management Goal:Medications Completed Home Visit Med Education: Medication list reconciled. Medication profile and in-home medication list updated with appropriate changes. Discrepanices noted during home visit: none Instructed patient on dosing, purpose, and side effects. Medication education completed today on all medication(s). Patient/caregiver is able to teach back 100% of instruction. Assess Pain Characteristics and Current Pain Regimen and Instruct Methods of Pain Relief Problem:Pain Management Goal:Pain Com[facility] Visit Details Visit Type - HH Routine Vi sit Discipline -Snf Problems Problem Start Date Status Goals Interventions Wound Care and/or Skin Problems Disciplines: Snf 01/20/2021 Active 1 goal linked to scheduled/documented intervention 1 goal intervention scheduled/documented in this visit Assess and Instruct Home Visit Disciplines: Snf 01/20/2021 Active 1 goal linked to scheduled/documented intervention 4 goal interventions scheduled/documented in this visit Medication Management Disciplines: Snf 01/20/2021 Active 1 goal linked to scheduled/documented intervention 1 goal intervention scheduled/documented in this visit Pain Management Disciplines: Snf 01/20/2021 Active 1 goal linked to scheduled/documented intervention 1 goal intervention scheduled/documented in this visit Goals Goal Associated Problem Outcome Goal Met? Visit Notes Drain/Tube Wound Care and/or Skin Problems No Home Care Plan Assess and Instruct Home Visit No Medications Medication Management No Pain Pain Management No Interventions Intervention Associated Problem/Goal Status Variance Visit Notes Instruct Drains/Tube(s) Problem:Wound Care and/or Skin Problems Goal:Drain/Tube Completed Pleurex catheters drained. 0ml removed from each drain. Sites redressed. Falls Problem:Assess and Instruct Home Visit Goal:Home Care Plan Completed Clinician taught: patient and caregiver 4-10 Patient IS at risk for falls (a score of 6 or greater is a predictor of future falls) and clinician instructed: assistive device usage, keep frequently used items in reach and emergency response system and/or keep phone on you Patient/caregiver was able to demonstrate 100% via teachback Safety Problem:Assess and Instruct Home Visit Goal:Home Care Plan Completed Assessed patient vulnerability and home safety risks: none Equipment reviewed walker Patient at risk for harm or abuse no Family members involved in safety plan for Level 2 or 3 n/a Discharge Planning Problem:Assess and Instruct Home Visit Goal:Home Care Plan Completed Discharge from home care after there is no further skilled need. Plan for Next Visit Problem:Assess and Instruct Home Visit Goal:Home Care Plan Completed CP assess, VS, monitor dressing/wound care, medication education Instruct Medication Management Problem:Medication Management Goal:Medications Completed Home Visit Med Education: Medication list reconciled. Medication profile and in-home medication list updated with appropriate changes. Discrepanices noted during home visit: none Instructed patient on dosing, purpose, and side effects. Medication education completed today on all medication(s). Patient/caregiver is able to teach back 100% of instruction. Assess Pain Characteristics and Current Pain Regimen and Instruct Methods of Pain Relief Problem:Pain Management Goal:Pain Completed [facility] Visit Details Visit Type -SN HH Routine Vi sit Discipline -Snf Problems Problem Start Date Status Goals Interventions Wound Care and/or Skin Problems Disciplines: Snf 01/20/2021 Active 1 goal linked to scheduled/documented intervention 1 goal intervention scheduled/documented in this visit Assess and Instruct Home Visit Disciplines: Snf 01/20/2021 Active 1 goal linked to scheduled/documented intervention 4 goal interventions scheduled/documented in this visit Medication Management Disciplines: Snf 01/20/2021 Active 1 goal linked to scheduled/documented intervention 1 goal intervention scheduled/documented in this visit Pain Management Disciplines: Snf 01/20/2021 Active 1 goal linked to scheduled/documented intervention 1 goal intervention scheduled/documented in this visit Goals Goal Associated Problem Outcome Goal Met? Visit Notes Drain/Tube Wound Care and/or Skin Problems No Home Care Plan Assess and Instruct Home Visit No Medications Medication Management No Pain Pain Management No Interventions Intervention Associated Problem/Goal Status Variance Visit Notes Instruct Drains/Tube(s) Problem:Wound Care and/or Skin Problems Goal:Drain/Tube Completed Pleurex catheters were not drained today. The pt has a f/u appt with the surgeon in 2 days to discuss the possiblity of removing them d/t the drains not putting out any drainage over the last 3 weeks. Falls Problem:Assess and Instruct Home Visit Goal:Home Care Plan Completed Clinician taught: patient and caregiver 4-10 Patient IS at risk for falls (a score of 6 or greater is a predictor of future falls) and clinician instructed: assistive device usage, keep frequently used items in reach and emergency response system and/or keep phone on you Patient/caregiver was able to demonstrate 100% via teachback Safety Problem:Assess and Instruct Home Visit Goal:Home Care Plan Completed Assessed patient vulnerability and home safety risks: none Equipment reviewed walker Patient at risk for harm or abuse no Family members involved in safety plan for Level 2 or 3 n/a Discharge Planning Problem:Assess and Instruct Home Visit Goal:Home Care Plan Completed Discharge from home care after there is no further skilled need. Pt/ is consulting with hospice. Plan for Next Visit Problem:Assess and Instruct Home Visit Goal:Home Care Plan Completed CP assess, VS, monitor pleurex dressing/care, medication education Instruct Medication Management Problem:Medication Management Goal:Medications Completed Home Visit Med Education: Medication list reconciled. Medication profile and in-home medication list updated with appropriate changes. Discrepanices noted during home visit: none Instructed patient on dosing, purpose, and side effects. Medication education completed today on all medication(s). Patient/caregiver is able to teach back 100% of instruction. Assess Pain Characteristics and Current Pain Regimen and Instruct Methods of Pain Relief Problem:Pain Management Goal:Pain Completed [facility] Visit Details Visit Type -SN HH Routine Vi sit Discipline -Snf Problems Problem Start Date Status Goals Interventions Assess and Instruct Home Visit Disciplines: Snf 01/20/2021 Active 1 goal linked to scheduled/documented intervention 4 goal interventions scheduled/documented in this visit Medication Management Disciplines: Snf 01/20/2021 Active 1 goal linked to scheduled/documented intervention 1 goal intervention scheduled/documented in this visit Pain Management Disciplines: Snf 01/20/2021 Active 1 goal linked to scheduled/documented intervention 1 goal intervention scheduled/documented in this visit Goals Goal Associated Problem Outcome Goal Met? Visit Notes Home Care Plan Assess and Instruct Home Visit No Medications Medication Management No Pain Pain Management No Interventions Intervention Associated Problem/Goal Status Variance Visit Notes Falls Problem:Assess and Instruct Home Visit Goal:Home Care Plan Completed Clinician taught: patient and caregiver 4-10 Patient IS at risk for falls (a score of 6 or greater is a predictor of future falls) and clinician instructed: assistive device usage, keep frequently used items in reach and emergency response system and/or keep phone on you Patient/caregiver was able to demonstrate 100% via teachback Safety Problem:Assess and Instruct Home Visit Goal:Home Care Plan Completed Assessed patient vulnerability and home safety risks: none Equipment reviewed walker Patient at risk for harm or abuse no Family members involved in safety plan for Level 2 or 3 n/a Discharge Planning Problem:Assess and Instruct Home Visit Goal:Home Care Plan Completed Discharge from home care in a couple weeks. Chest tubes have been removed last week. New medication started. Plan for Next Visit Problem:Assess and Instruct Home Visit Goal:Home Care Plan Completed CP assess, VS, medication education Instruct Medication Management Problem:Medication Management Goal:Medications Completed Home Visit Med Education: Medication list reconciled. Medication profile and in-home medication list updated with appropriate changes. Discrepanices noted during home visit: none Instructed patient on dosing, purpose, and side effects. Medication education completed today on all medication(s). Patient/caregiver is able to teach back 100% of instruction. Assess Pain Characteristics and Current Pain Regimen and Instruct Methods of Pain Relief Problem:Pain Management Goal:Pain Completed [facility] Visit Details Visit Type -SN HH Routine Vi sit Discipline -Snf Problems Problem Start Date Status Goals Interventions Assess and Instruct Home Visit Disciplines: Snf 01/20/2021 Active 1 goal linked to scheduled/documented intervention 4 goal interventions scheduled/documented in this visit Medication Management Disciplines: Snf 01/20/2021 Active 1 goal linked to scheduled/documented intervention 1 goal intervention scheduled/documented in this visit Pain Management Disciplines: Snf 01/20/2021 Active 1 goal linked to scheduled/documented intervention 1 goal intervention scheduled/documented in this visit Goals Goal Associated Problem Outcome Goal Met? Visit Notes Home Care Plan Assess and Instruct Home Visit No Medications Medication Management No Pain Pain Management No Interventions Intervention Associated Problem/Goal Status Variance Visit Notes Falls Problem:Assess and Instruct Home Visit Goal:Home Care Plan Completed Clinician taught: patient and caregiver 4-10 Patient IS at risk for falls (a score of 6 or greater is a predictor of future falls) and clinician instructed: assistive device usage, keep frequently used items in reach and emergency response system and/or keep phone on you Patient/caregiver was able to demonstrate 100% via teachback Safety Problem:Assess and Instruct Home Visit Goal:Home Care Plan Completed Assessed patient vulnerability and home safety risks: none Equipment reviewed walker, )2 Patient at risk for harm or abuse no Family members involved in safety plan for Level 2 or 3 n/a Discharge Planning Problem:Assess and Instruct Home Visit Goal:Home Care Plan Completed Discharge from home care within the next couple weeks. Plan for Next Visit Problem:Assess and Instruct Home Visit Goal:Home Care Plan Completed CP assess, VS, medication education Instruct Medication Management Problem:Medication Management Goal:Medications Completed Home Visit Med Education: Medication list reconciled. Medication profile and in-home medication list updated with appropriate changes. Discrepanices noted during home visit: none Instructed patient on dosing, purpose, and side effects. Medication education completed today on all medication(s). Patient/caregiver is able to teach back 100% of instruction. Assess Pain Characteristics and Current Pain Regimen and Instruct Methods of Pain Relief Problem:Pain Management Goal:Pain Completed 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 PRESS SUPERVISOR Routine Visi t Discipline -Physical Therapy Problems Problem Start Date Status Goals Interventions Assess and Instruct Home Visit Disciplines: Physical Therapy 08/26/2021 Active 2 goals linked to scheduled/documented interventions 4 goal interventions scheduled/documented in this visit Home Exercise Program Disciplines: Physical Therapy 08/26/2021 Active 1 goal linked to scheduled/documented intervention 1 goal intervention scheduled/documented in this visit Goals Goal Associated Problem Outcome Goal Met? Visit Notes Medications Assess and Instruct Home Visit No Home Care Plan Assess and Instruct Home Visit No Home Exercise Program Home Exercise Program No Interventions Intervention Associated Problem/Goal Status Variance Visit Notes Instruct Medication Management Problem:Assess and Instruct Home Visit Goal:Medications Completed Home Visit Med Education: Medication list reconciled. Medication profile and in-home medication list updated with appropriate changes. Discrepanices noted during home visit: none Instructed patient on dosing, purpose, and side effects. Medication education completed today on all medication(s). Patient/caregiver is able to teach back 100% of instruction. Falls Problem:Assess and Instruct Home Visit Goal:Home Care Plan Completed Clinician taught: patient and caregiver 4-10 Patient IS at risk for falls (a score of 6 or greater is a predictor of future falls) and clinician instructed: proper footwear and assistive device usage Patient/caregiver was able to demonstrate 90% via teachback Safety Problem:Assess and Instruct Home Visit Goal:Home Care Plan Completed Assessed patient vulnerability and home safety risks: none Equipment reviewed fww Patient at risk for harm or abuse no Family members involved in safety plan for Level 2 or 3 Plan for Next Visit Problem:Assess and Instruct Home Visit Goal:Home Care Plan Completed Follow up education for next visit: hep compliance Skilled intervention at next visit: cont per poc Home Exercise Program Problem:Home Exercise Program Goal:Home Exercise Program Completed Patient reports: Clinician taught: patient and caregiver Clinician instructed on: Pt given HEP for seated ex's c instructions to complete twice daily. Pt verbalizes good understanding. also instructed pt to amb every 2 hrs to improve endurance and strength Patient/caregiver is able to teach back 95% of instruction. 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 PRESS SUPERVISOR Routine Visi t Discipline -Physical Therapy Problems Problem Start Date Status Goals Interventions Assess and Instruct Home Visit Disciplines: Physical Therapy 08/26/2021 Active 2 goals linked to scheduled/documented interventions 4 goal interventions scheduled/documented in this visit Home Exercise Program Disciplines: Physical Therapy 08/26/2021 Active 1 goal linked to scheduled/documented intervention 1 goal intervention scheduled/documented in this visit Goals Goal Associated Problem Outcome Goal Met? Visit Notes Medications Assess and Instruct Home Visit No Home Care Plan Assess and Instruct Home Visit No Home Exercise Program Home Exercise Program No Interventions Intervention Associated Problem/Goal Status Variance Visit Notes Instruct Medication Management Problem:Assess and Instruct Home Visit Goal:Medications Completed Home Visit Med Education: Medication list reconciled. Medication profile and in-home medication list updated with appropriate changes. Discrepanices noted during home visit: none Instructed patient on dosing, purpose, and side effects. Medication education completed today on all medication(s). Patient/caregiver is able to teach back 100% of instruction. Falls Problem:Assess and Instruct Home Visit Goal:Home Care Plan Completed Clinician taught: patient and caregiver 4-10 Patient IS at risk for falls (a score of 6 or greater is a predictor of future falls) and clinician instructed: proper footwear, safe cord/tubing management (O2, IV, Electrical, Manri[place]) and assistive device usage Patient/caregiver was able to demonstrate 95% via teachback Safety Problem:Assess and Instruct Home Visit Goal:Home Care Plan Completed Assessed patient vulnerability and home safety risks: none Equipment reviewed fww Patient at risk for harm or abuse no Family members involved in safety plan for Level 2 or 3 Plan for Next Visit Problem:Assess and Instruct Home Visit Goal:Home Care Plan Completed Follow up education for next visit: hep compliance Skilled intervention at next visit: cont per poc Home Exercise Program Problem:Home Exercise Program Goal:Home Exercise Program Completed Patient reports: hep compliance Clinician taught: patient Clinician instructed on: Therapist reviewed HEP c pt c good recall. Patient/caregiver is able to teach back 95% of instruction. [facility] Visit Details Visit Type -SN HH Non-OASIS/ Discipline DC Discipline -Snf Problems Problem Start Date Status Goals Interventions Assess and Instruct Home Visit Disciplines: Snf 01/20/2021 Resolved on 09/07/2021 1 goal linked to scheduled/documented intervention 4 goal interventions scheduled/documented in this visit Medication Management Disciplines: Snf 01/20/2021 Resolved on 09/07/2021 1 goal linked to scheduled/documented intervention 1 goal intervention scheduled/documented in this visit Pain Management Disciplines: Snf 01/20/2021 Resolved on 09/07/2021 1 goal linked to scheduled/documented intervention 1 goal intervention scheduled/documented in this visit Goals Goal Associated Problem Outcome Goal Met? Visit Notes Home Care Plan Assess and Instruct Home Visit No Medications Medication Management No Pain Pain Management No Interventions Intervention Associated Problem/Goal Status Variance Visit Notes Falls Problem:Assess and Instruct Home Visit Goal:Home Care Plan Scheduled Safety Problem:Assess and Instruct Home Visit Goal:Home Care Plan Scheduled Discharge Planning Problem:Assess and Instruct Home Visit Goal:Home Care Plan Scheduled Plan for Next Visit Problem:Assess and Instruct Home Visit Goal:Home Care Plan Scheduled Instruct Medication Management Problem:Medication Management Goal:Medications Scheduled Assess Pain Characteristics and Current Pain Regimen and Instruct Methods of Pain Relief Problem:Pain Management Goal:Pain Scheduled [facility] Visit Details Visit Type -POWER PRESS SUPERVISOR Routine Visi t Discipline -Physical Therapy Problems Problem Start Date Status Goals Interventions Assess and Instruct Home Visit Disciplines: Physical Therapy 08/26/2021 Active 2 goals linked to scheduled/documented interventions 4 goal interventions scheduled/documented in this visit Home Exercise Program Disciplines: Physical Therapy 08/26/2021 Active 1 goal linked to scheduled/documented intervention 1 goal intervention scheduled/documented in this visit Goals Goal Associated Problem Outcome Goal Met? Visit Notes Medications Assess and Instruct Home Visit No Home Care Plan Assess and Instruct Home Visit No Home Exercise Program Home Exercise Program No Interventions Intervention Associated Problem/Goal Status Variance Visit Notes Instruct Medication Management Problem:Assess and Instruct Home Visit Goal:Medications Completed Home Visit Med Education: Medication list reconciled. Medication profile and in-home medication list updated with appropriate changes. Discrepanices noted during home visit: none Instructed patient on dosing, purpose, and side effects. Medication education completed today on all medication(s). Patient/caregiver is able to teach back 100% of instruction. Falls Problem:Assess and Instruct Home Visit Goal:Home Care Plan Completed Clinician taught: patient and caregiver 4-10 Patient IS at risk for falls (a score of 6 or greater is a predictor of future falls) and clinician instructed: proper footwear and assistive device usage Patient/caregiver was able to demonstrate 95% via teachback Safety Problem:Assess and Instruct Home Visit Goal:Home Care Plan Completed Assessed patient vulnerability and home safety risks: none Equipment reviewed fww Patient at risk for harm or abuse no Family members involved in safety plan for Level 2 or 3 Plan for Next Visit Problem:Assess and Instruct Home Visit Goal:Home Care Plan Completed Follow up education for next visit: hep compliance3 Skilled intervention at next visit: cont per poc Home Exercise Program Problem:Home Exercise Program Goal:Home Exercise Program Completed Patient reports: hep compliance Clinician taught: patient and caregiver Clinician instructed on: updated hep to inclued standing march, Hr/tr and sts Patient/caregiver is able to teach back 90% of instruction. [facility] Visit Details Visit Type -POWER PRESS SUPERVISOR Routine Visi t Discipline -Physical Therapy Problems Problem Start Date Status Goals Interventions Assess and Instruct Home Visit Disciplines: Physical Therapy 08/26/2021 Active 2 goals linked to scheduled/documented interventions 4 goal interventions scheduled/documented in this visit Home Exercise Program Disciplines: Physical Therapy 08/26/2021 Active 1 goal linked to scheduled/documented intervention 1 goal intervention scheduled/documented in this visit Goals Goal Associated Problem Outcome Goal Met? Visit Notes Medications Assess and Instruct Home Visit No Home Care Plan Assess and Instruct Home Visit No Home Exercise Program Home Exercise Program No Interventions Intervention Associated Problem/Goal Status Variance Visit Notes Instruct Medication Management Problem:Assess and Instruct Home Visit Goal:Medications Completed Home Visit Med Education: Medication list reconciled. Medication profile and in-home medication list updated with appropriate changes. Discrepanices noted during home visit: none Instructed patient on dosing, purpose, and side effects. Medication education completed today on all medication(s). Patient/caregiver is able to teach back 100% of instruction. Falls Problem:Assess and Instruct Home Visit Goal:Home Care Plan Completed Clinician taught: patient and caregiver 4-10 Patient IS at risk for falls (a score of 6 or greater is a predictor of future falls) and clinician instructed: proper footwear and assistive device usage Patient/caregiver was able to demonstrate 95% via teachback Safety Problem:Assess and Instruct Home Visit Goal:Home Care Plan Completed Assessed patient vulnerability and home safety risks: none Equipment reviewed fww Patient at risk for harm or abuse no Family members involved in safety plan for Level 2 or 3 Plan for Next Visit Problem:Assess and Instruct Home Visit Goal:Home Care Plan Completed Follow up education for next visit: hep compliance3 Skilled intervention at next visit: cont per poc Home Exercise Program Problem:Home Exercise Program Goal:Home Exercise Program Completed Patient reports: hep compliance Clinician taught: patient and caregiver Clinician instructed on: updated hep to inclued standing march, Hr/tr and sts Patient/caregiver is able to teach back 90% of instruction. documented in this encounter [facility] of care [facility]* Visit Details Visit Type -POWER PRESS SUPERVISOR Routine Visi t Discipline -Physical Therapy Problems Problem Start Date Status Goals Interventions Assess and Instruct Home Visit Disciplines: Physical Therapy 08/26/2021 Active 2 goals linked to scheduled/documented interventions 4 goal interventions scheduled/documented in this visit Home Exercise Program Disciplines: Physical Therapy 08/26/2021 Active 1 goal linked to scheduled/documented intervention 1 goal intervention scheduled/documented in this visit Goals Goal Associated Problem Outcome Goal Met? Visit Notes Medications Assess and Instruct Home Visit No Home Care Plan Assess and Instruct Home Visit No Home Exercise Program Home Exercise Program No Interventions Intervention Associated Problem/Goal Status Variance Visit Notes Instruct Medication Management Problem:Assess and Instruct Home Visit Goal:Medications Completed Home Visit Med Education: Medication list reconciled. Medication profile and in-home medication list updated with appropriate changes. Discrepanices noted during home visit: none Instructed patient on dosing, purpose, and side effects. Medication education completed today on all medication(s). Patient/caregiver is able to teach back 100% of instruction. Falls Problem:Assess and Instruct Home Visit Goal:Home Care Plan Completed Clinician taught: patient and caregiver 4-10 Patient IS at risk for falls (a score of 6 or greater is a predictor of future falls) and clinician instructed: proper footwear, safe cord/tubing management (O2, IV, Electrical, Manriquez) and assistive device usage Patient/caregiver was able to demonstrate 95% via teachback Safety Problem:Assess and Instruct Home Visit Goal:Home Care Plan Completed Assessed patient vulnerability and home safety risks: none Equipment reviewed fww Patient at risk for harm or abuse no Family members involved in safety plan for Level 2 or 3 Plan for Next Visit Problem:Assess and Instruct Home Visit Goal:Home Care Plan Completed Follow up education for next visit: hep compliance Skilled intervention at next visit: cont to progress as able Home Exercise Program Problem:Home Exercise Program Goal:Home Exercise Program Completed Patient reports: hep compliance Clinician taught: patient Clinician instructed on: Therapist reviewed HEP c pt c good recall. Patient/caregiver is able to teach back 95% of instruction. [facility] Visit Details Visit Type -SN HH OASIS Star t of Care Discipline -Snf Problems Problem Start Date Status Goals Interventions Assess and Instruct Home Visit Disciplines: Snf 05/01/2022 Active 1 goal linked to scheduled/documented intervention 4 goal interventions scheduled/documented in this visit Medication Management Disciplines: Snf 05/01/2022 Active 1 goal linked to scheduled/documented intervention 1 goal intervention scheduled/documented in this visit Pain Management Disciplines: Snf 05/01/2022 Active 1 goal linked to scheduled/documented intervention 1 goal intervention scheduled/documented in this visit Wound Care and/or Skin Problems Disciplines: Snf 05/01/2022 Active 1 goal linked to scheduled/documented intervention 1 goal intervention scheduled/documented in this visit Cardiac Disciplines: Snf 05/01/2022 Active 2 goals linked to scheduled/documented interventions 2 goal interventions scheduled/documented in this visit Gastrointestinal Disciplines: Snf 05/01/2022 Active 1 goal linked to scheduled/documented intervention 1 goal intervention scheduled/documented in this visit Respiratory Disciplines: Snf 05/01/2022 Active 1 goal linked to scheduled/documented intervention 1 goal intervention scheduled/documented in this visit Goals Goal Associated Problem Outcome Goal Met? Visit Notes Home Care Plan Assess and Instruct Home Visit No Medications Medication Management No Pain Pain Management No Wound/Incision Wound Care and/or Skin Problems No Heart Failure Cardiac No Cardiac Function Cardiac No Gastrointestinal Gastrointestinal No Oxygen Therapy Respiratory No Interventions Intervention Associated Problem/Goal Status Variance Visit Notes Falls Problem:Assess and Instruct Home Visit Goal:Home Care Plan Completed Clinician taught: patient and caregiver 4-10 Patient IS at risk for falls (a score of 6 or greater is a predictor of future falls) and clinician instructed: proper footwear, improved lighting, remove clutter and throw rugs, safe cord/tubing management (O2, IV, Electrical, Manriquez), assistive device usage and keep frequently used items in reach Patient/caregiver was able to demonstrate 75% via teachback Safety Problem:Assess and Instruct Home Visit Goal:Home Care Plan Completed Assessed patient vulnerability and home safety risks: Yes Equipment reviewed walker Patient at risk for harm or abuse No Family members involved in safety plan for Level 2 or 3 Discharge Planning Problem:Assess and Instruct Home Visit Goal:Home Care Plan Completed Home Visit DC Planning: Spoke with patient and caregiver about DC planning. Assessed for unsteady gait/poor balance and dyspnea at rest or with exertion DC will occur when: patient/caregiver can teach back care Anticipate DC: Early Patient and/or caregiver response to discharge planning education: Agree Plan for Next Visit Problem:Assess and Instruct Home Visit Goal:Home Care Plan Completed Follow up education for next visit: Medications Skilled intervention at next visit: CP/wound assessment. Instruct Medication Management Problem:Medication Management Goal:Medications Completed Home Visit Med Education: Medication list reconciled. Medication profile and in-home medication list updated with appropriate changes. Discrepanices noted during home visit: none Instructed patient on dosing, purpose, and side effects. Medication education completed today on all medication(s). Patient/caregiver is able to teach back 75% of instruction. Assess Pain Characteristics and Current Pain Regimen and Instruct Methods of Pain Relief Problem:Pain Management Goal:Pain Completed Wound/Incision Problem:Wound Care and/or Skin Problems Goal:Wound/Incision Completed Patient reports: no drainage Clinician taught: patient and caregiver Clinician instructed on: Wound care Patient/caregiver is able to teach back/demonstrate given instruction including signs and symptoms of infection. Instruct Heart Failure Problem:Cardiac Goal:Heart Failure Completed Patient reports: mild edema Clinician taught: patient and caregiver Clinician instructed on: elevated legs Patient/caregiver is able to teach back 75% of instruction. Instruct Impaired Cardiac Function Problem:Cardiac Goal:Cardiac Function Completed Patient reports: history a-fib Clinician taught: patient and caregiver Clinician instructed on: management Patient/caregiver is able to teach back 75% of instruction. Instruct Alteration in GI Function Problem:Gastrointest inal Goal:Gastrointestina l Completed Patient reports: loose stools Clinician taught: patient and caregiver Clinician instructed on: management Patient/caregiver is able to teach back 75% of instruction. Instruct Oxygen Usage Problem:Respiratory Goal:Oxygen Therapy Completed Patient reports: sob with activity Clinician taught: patient and caregiver Clinician instructed on: pace activites/safety Patient/caregiver is able to teach back 75% of instruction. [facility] Visit Details Visit Type -OT Initial Evalu ation Discipline -Occupational Therapy Problems Problem Start Date Status Goals Interventions Disease-Specific Rehabilitation Disciplines: Occupational Therapy 05/02/2022 Active 1 goal linked to scheduled/documented intervention 1 goal intervention scheduled/documented in this visit Goals Goal Associated Problem Outcome Goal Met? Visit Notes Post-Surgical Disease-Specific Rehabilitation No Interventions Intervention Associated Problem/Goal Status Variance Visit Notes Instruct Post-op Care Problem:Disease-Specific Rehabilitation Goal:Post-Surgical Completed Pt agrees to some form of exercise program, T_band may be best. [facility] Details Visit Type -SN HH OASIS Star t of Care Discipline -Snf Problems Problem Start Date Status Goals Interventions Assess and Instruct Home Visit Disciplines: Snf 05/01/2022 Active 1 goal linked to scheduled/documented intervention 4 goal interventions scheduled/documented in this visit Medication Management Disciplines: Snf 05/01/2022 Active 1 goal linked to scheduled/documented intervention 1 goal intervention scheduled/documented in this visit Pain Management Disciplines: Snf 05/01/2022 Active 1 goal linked to scheduled/documented intervention 1 goal intervention scheduled/documented in this visit Wound Care and/or Skin Problems Disciplines: Snf 05/01/2022 Active 1 goal linked to scheduled/documented intervention 1 goal intervention scheduled/documented in this visit Cardiac Disciplines: Snf 05/01/2022 Active 2 goals linked to scheduled/documented interventions 2 goal interventions scheduled/documented in this visit Gastrointestinal Disciplines: Snf 05/01/2022 Active 1 goal linked to scheduled/documented intervention 1 goal intervention scheduled/documented in this visit Respiratory Disciplines: Snf 05/01/2022 Active 1 goal linked to scheduled/documented intervention 1 goal intervention scheduled/documented in this visit Goals Goal Associated Problem Outcome Goal Met? Visit Notes Home Care Plan Assess and Instruct Home Visit No Medications Medication Management No Pain Pain Management No Wound/Incision Wound Care and/or Skin Problems No Heart Failure Cardiac No Cardiac Function Cardiac No Gastrointestinal Gastrointestinal No Oxygen Therapy Respiratory No Interventions Intervention Associated Problem/Goal Status Variance Visit Notes Falls Problem:Assess and Instruct Home Visit Goal:Home Care Plan Completed Clinician taught: patient and caregiver 4-10 Patient IS at risk for falls (a score of 6 or greater is a predictor of future falls) and clinician instructed: proper footwear, improved lighting, remove clutter and throw rugs, safe cord/tubing management (O2, IV, Electrical, Manriquez), assistive device usage and keep frequently used items in reach Patient/caregiver was able to demonstrate 75% via teachback Safety Problem:Assess and Instruct Home Visit Goal:Home Care Plan Completed Assessed patient vulnerability and home safety risks: Yes Equipment reviewed walker Patient at risk for harm or abuse No Family members involved in safety plan for Level 2 or 3 Discharge Planning Problem:Assess and Instruct Home Visit Goal:Home Care Plan Completed Home Visit DC Planning: Spoke with patient and caregiver about DC planning. Assessed for unsteady gait/poor balance and dyspnea at rest or with exertion DC will occur when: patient/caregiver can teach back care Anticipate DC: Early Patient and/or caregiver response to discharge planning education: Agree Plan for Next Visit Problem:Assess and Instruct Home Visit Goal:Home Care Plan Completed Follow up education for next visit: Medications Skilled intervention at next visit: CP/wound assessment. Instruct Medication Management Problem:Medication Management Goal:Medications Completed Home Visit Med Education: Medication list reconciled. Medication profile and in-home medication list updated with appropriate changes. Discrepanices noted during home visit: none Instructed patient on dosing, purpose, and side effects. Medication education completed today on all medication(s). Patient/caregiver is able to teach back 75% of instruction. Assess Pain Characteristics and Current Pain Regimen and Instruct Methods of Pain Relief Problem:Pain Management Goal:Pain Completed Wound/Incision Problem:Wound Care and/or Skin Problems Goal:Wound/Incision Completed Patient reports: no drainage Clinician taught: patient and caregiver Clinician instructed on: Wound care Patient/caregiver is able to teach back/demonstrate given instruction including signs and symptoms of infection. Instruct Heart Failure Problem:Cardiac Goal:Heart Failure Completed Patient reports: mild edema Clinician taught: patient and caregiver Clinician instructed on: elevated legs Patient/caregiver is able to teach back 75% of instruction. Instruct Impaired Cardiac Function Problem:Cardiac Goal:Cardiac Function Completed Patient reports: history a-fib Clinician taught: patient and caregiver Clinician instructed on: management Patient/caregiver is able to teach back 75% of instruction. Instruct Alteration in GI Function Problem:Gastrointest inal Goal:Gastrointestina l Completed Patient reports: loose stools Clinician taught: patient and caregiver Clinician instructed on: management Patient/caregiver is able to teach back 75% of instruction. Instruct Oxygen Usage Problem:Respiratory Goal:Oxygen Therapy Completed Patient reports: sob with activity Clinician taught: patient and caregiver Clinician instructed on: pace activites/safety Patient/caregiver is able to teach back 75% of instruction. [facility] Visit Details Visit Type -MOSQUERA Routine Vis it Discipline -Occupational Therapy Problems Problem Start Date Status Goals Interventions Assess and Instruct Home Visit Disciplines: Occupational Therapy 05/02/2022 Active 1 goal linked to scheduled/documented intervention 3 goal interventions scheduled/documented in this visit Disease-Specific Rehabilitation Disciplines: Occupational Therapy 05/02/2022 Active 1 goal linked to scheduled/documented intervention 1 goal intervention scheduled/documented in this visit Goals Goal Associated Problem Outcome Goal Met? Visit Notes Home Care Plan Assess and Instruct Home Visit No Post-Surgical Disease-Specific Rehabilitation No Interventions Intervention Associated Problem/Goal Status Variance Visit Notes Falls Problem:Assess and Instruct Home Visit Goal:Home Care Plan Completed no falls Safety Problem:Assess and Instruct Home Visit Goal:Home Care Plan Completed Assessed patient vulnerability and home safety risks: yes Equipment reviewed grab bars/FWW Patient at risk for harm or abuse no Family members involved in safety plan for Level 2 or 3 yes Plan for Next Visit Problem:Assess and Instruct Home Visit Goal:Home Care Plan Completed Follow up education for next visit: post op precautions Skilled intervention at next visit: HEP Instruct Post-op Care Problem:Disease-Specif ic Rehabilitation Goal:Post-Surgical Completed Patient reports: verbalizing Bending/lifting twisting precautions Clinician taught: patient and caregiver Clinician instructed on: purpose of precautions/risks of not following precautions, pt voices understanding and reports spouse often reminds him to avoid bending over to pick things up. 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 Pt voices he would like to get stronger,however, voices particpiation in IADL tasks is unrealistic as he has not completed any snack item retreival in years, spouse agrees. Education provided on strategies to improve strength/stamina by standing @ [employer] during commerical breaks while watching TV, folding laundry, & completing grooming while seated on counter height stool in bathroom. Patient/caregiver is able to teach back 90% of instruction. [facility] Visit Details Visit Type -SN HH Routine Vi sit Discipline -Snf Problems Problem Start Date Status Goals Interventions Assess and Instruct Home Visit Disciplines: Snf 05/01/2022 Active 1 goal linked to scheduled/documented intervention 4 goal interventions scheduled/documented in this visit Medication Management Disciplines: Snf 05/01/2022 Active 1 goal linked to scheduled/documented intervention 1 goal intervention scheduled/documented in this visit Pain Management Disciplines: Snf 05/01/2022 Active 1 goal linked to scheduled/documented intervention 1 goal intervention scheduled/documented in this visit Wound Care and/or Skin Problems Disciplines: Snf 05/01/2022 Active 1 goal linked to scheduled/documented intervention 1 goal intervention scheduled/documented in this visit Cardiac Disciplines: Snf 05/01/2022 Active 2 goals linked to scheduled/documented interventions 2 goal interventions scheduled/documented in this visit Gastrointestinal Disciplines: Snf 05/01/2022 Active 1 goal linked to scheduled/documented intervention 1 goal intervention scheduled/documented in this visit Respiratory Disciplines: Snf 05/01/2022 Active 1 goal linked to scheduled/documented intervention 1 goal intervention scheduled/documented in this visit Goals Goal Associated Problem Outcome Goal Met? Visit Notes Home Care Plan Assess and Instruct Home Visit No Medications Medication Management No Pain Pain Management No Wound/Incision Wound Care and/or Skin Problems No Heart Failure Cardiac No Cardiac Function Cardiac No Gastrointestinal Gastrointestinal No Oxygen Therapy Respiratory No Interventions Intervention Associated Problem/Goal Status Variance Visit Notes Falls Problem:Assess and Instruct Home Visit Goal:Home Care Plan Completed Clinician taught: patient and caregiver 4-10 Patient IS at risk for falls (a score of 6 or greater is a predictor of future falls) and clinician instructed: assistive device usage, keep frequently used items in reach and emergency response system and/or keep phone on you Patient/caregiver was able to demonstrate 100% via teachback Safety Problem:Assess and Instruct Home Visit Goal:Home Care Plan Completed Assessed patient vulnerability and home safety risks: none Equipment reviewed oxygen, wheelchair Patient at risk for harm or abuse no Family members involved in safety plan for Level 2 or 3 n/a Discharge Planning Problem:Assess and Instruct Home Visit Goal:Home Care Plan Completed D/c from home care after there is no further skilled need. Plan for Next Visit Problem:Assess and Instruct Home Visit Goal:Home Care Plan Completed CP assess, VS, monitor dressing/wound care, medication education Instruct Medication Management Problem:Medication Management Goal:Medications Completed Home Visit Med Education: Medication list reconciled. Medication profile and in-home medication list updated with appropriate changes. Discrepanices noted during home visit: none Instructed patient on dosing, purpose, and side effects. Medication education completed today on amiodarone medication(s). Patient/caregiver is able to teach back 100% of instruction. Assess Pain Characteristics and Current Pain Regimen and Instruct Methods of Pain Relief Problem:Pain Management Goal:Pain Completed Wound/Incision Problem:Wound Care and/or Skin Problems Goal:Wound/Incision Completed Surgical incision dressing it CDI with no drainage noted. Dressing is still transparent. Instruct Heart Failure Problem:Cardiac Goal:Heart Failure Completed Pt/spouse instructed on recognizing and managing signs and symptoms of heart failure. Instruct Impaired Cardiac Function Problem:Cardiac Goal:Cardiac Function Completed Pt/spouse instructed on recognizing and managing signs and symptoms of cardiac arrhythmia and hypertension. Pt's BP was WNL today. Instruct Alteration in GI Function Problem:Gastrointest inal Goal:Gastrointestina l Completed Pt denies any GI issues at this time. Instruct Oxygen Usage Problem:Respiratory Goal:Oxygen Therapy Completed Pt/spouse instructed on management/precaution s of oxygen therapy and care of equipment, and on proper storage of oxygen. [facility] Visit Details Visit Type -PT Initial Evalu ation Discipline -Physical Therapy Problems Problem Start Date Status Goals Interventions Assess and Instruct Home Visit Disciplines: Physical Therapy 05/08/2022 Active 2 goals linked to scheduled/documented interventions 4 goal interventions scheduled/documented in this visit Goals Goal Associated Problem Outcome Goal Met? Visit Notes Medications Assess and Instruct Home Visit No Home Care Plan Assess and Instruct Home Visit No Interventions Intervention Associated Problem/Goal Status Variance Visit Notes Instruct Medication Management Problem:Assess and Instruct Home Visit Goal:Medications Scheduled Falls Problem:Assess and Instruct Home Visit Goal:Home Care Plan Scheduled Safety Problem:Assess and Instruct Home Visit Goal:Home Care Plan Scheduled Plan for Next Visit Problem:Assess and Instruct Home Visit Goal:Home Care Plan Scheduled documented [facility]* Visit Details Visit Type -SN HH OASIS Star t of Care Discipline -Snf Problems Problem Start Date Status Goals Interventions Assess and Instruct Home Visit Disciplines: Snf 05/01/2022 Active 1 goal linked to scheduled/documented intervention 4 goal interventions scheduled/documented in this visit Medication Management Disciplines: Snf 05/01/2022 Active 1 goal linked to scheduled/documented intervention 1 goal intervention scheduled/documented in this visit Pain Management Disciplines: Snf 05/01/2022 Active 1 goal linked to scheduled/documented intervention 1 goal intervention scheduled/documented in this visit Wound Care and/or Skin Problems Disciplines: Snf 05/01/2022 Active 1 goal linked to scheduled/documented intervention 1 goal intervention scheduled/documented in this visit Cardiac Disciplines: Snf 05/01/2022 Active 2 goals linked to scheduled/documented interventions 2 goal interventions scheduled/documented in this visit Gastrointestinal Disciplines: Snf 05/01/2022 Active 1 goal linked to scheduled/documented intervention 1 goal intervention scheduled/documented in this visit Respiratory Disciplines: Snf 05/01/2022 Active 1 goal linked to scheduled/documented intervention 1 goal intervention scheduled/documented in this visit Goals Goal Associated Problem Outcome Goal Met? Visit Notes Home Care Plan Assess and Instruct Home Visit No Medications Medication Management No Pain Pain Management No Wound/Incision Wound Care and/or Skin Problems No Heart Failure Cardiac No Cardiac Function Cardiac No Gastrointestinal Gastrointestinal No Oxygen Therapy Respiratory No Interventions Intervention Associated Problem/Goal Status Variance Visit Notes Falls Problem:Assess and Instruct Home Visit Goal:Home Care Plan Completed Clinician taught: patient and caregiver 4-10 Patient IS at risk for falls (a score of 6 or greater is a predictor of future falls) and clinician instructed: proper footwear, improved lighting, remove clutter and throw rugs, safe cord/tubing management (O2, IV, Electrical, Manriquez), assistive device usage and keep frequently used items in reach Patient/caregiver was able to demonstrate 75% via teachback Safety Problem:Assess and Instruct Home Visit Goal:Home Care Plan Completed Assessed patient vulnerability and home safety risks: Yes Equipment reviewed walker Patient at risk for harm or abuse No Family members involved in safety plan for Level 2 or 3 Discharge Planning Problem:Assess and Instruct Home Visit Goal:Home Care Plan Completed Home Visit DC Planning: Spoke with patient and caregiver about DC planning. Assessed for unsteady gait/poor balance and dyspnea at rest or with exertion DC will occur when: patient/caregiver can teach back care Anticipate DC: Early Patient and/or caregiver response to discharge planning education: Agree Plan for Next Visit Problem:Assess and Instruct Home Visit Goal:Home Care Plan Completed Follow up education for next visit: Medications Skilled intervention at next visit: CP/wound assessment. Instruct Medication Management Problem:Medication Management Goal:Medications Completed Home Visit Med Education: Medication list reconciled. Medication profile and in-home medication list updated with appropriate changes. Discrepanices noted during home visit: none Instructed patient on dosing, purpose, and side effects. Medication education completed today on all medication(s). Patient/caregiver is able to teach back 75% of instruction. Assess Pain Characteristics and Current Pain Regimen and Instruct Methods of Pain Relief Problem:Pain Management Goal:Pain Completed Wound/Incision Problem:Wound Care and/or Skin Problems Goal:Wound/Incision Completed Patient reports: no drainage Clinician taught: patient and caregiver Clinician instructed on: Wound care Patient/caregiver is able to teach back/demonstrate given instruction including signs and symptoms of infection. Instruct Heart Failure Problem:Cardiac Goal:Heart Failure Completed Patient reports: mild edema Clinician taught: patient and caregiver Clinician instructed on: elevated legs Patient/caregiver is able to teach back 75% of instruction. Instruct Impaired Cardiac Function Problem:Cardiac Goal:Cardiac Function Completed Patient reports: history a-fib Clinician taught: patient and caregiver Clinician instructed on: management Patient/caregiver is able to teach back 75% of instruction. Instruct Alteration in GI Function Problem:Gastrointest inal Goal:Gastrointestina l Completed Patient reports: loose stools Clinician taught: patient and caregiver Clinician instructed on: management Patient/caregiver is able to teach back 75% of instruction. Instruct Oxygen Usage Problem:Respiratory Goal:Oxygen Therapy Completed Patient reports: sob with activity Clinician taught: patient and caregiver Clinician instructed on: pace activites/safety Patient/caregiver is able to teach back 75% of instruction. [facility] Visit Details Visit Type -MOSQUERA Routine Vis it Discipline -Occupational Therapy Problems Problem Start Date Status Goals Interventions Assess and Instruct Home Visit Disciplines: Occupational Therapy 05/02/2022 Active 1 goal linked to scheduled/documented intervention 1 goal intervention scheduled/documented in this visit Disease-Specific Rehabilitation Disciplines: Occupational Therapy 05/02/2022 Active 1 goal linked to scheduled/documented intervention 1 goal intervention scheduled/documented in this visit Goals Goal Associated Problem Outcome Goal Met? Visit Notes Home Care Plan Assess and Instruct Home Visit No Post-Surgical Disease-Specific Rehabilitation No Interventions Intervention Associated Problem/Goal Status Variance Visit Notes Falls Problem:Assess and Instruct Home Visit Goal:Home Care Plan Completed Clinician taught: patient 4-10 Patient IS at risk for falls (a score of 6 or greater is a predictor of future falls) and clinician instructed: safe cord/tubing management (O2) Patient/caregiver was able to demonstrate 75% via teachback Instruct Post-op Care Problem:Disease-Specif ic Rehabilitation Goal:Post-Surgical Completed Patient reports: mild chronic back pain Clinician taught: patient Clinician instructed on: light resistance exercises, provided HEP worksheet & instructed pt in progressivly grading resistance beginning with 12 oz bottled water x10 reps, pt requires 50% visual/25% verbal cues for correct technique, exercises alternating from seated to standing with reports of back pain increasing from 5/10 while seated to 8/10 at rest. MOSQUERA advised use of heat/ice x20 min for pain relief pre/post exercises, pt voices understanding and reports he will trial. Recommended HEP frequency of 1-2x/day x10-15 reps. Pt is able to verbalize recall of back precautions, BLT. Pt/spouse report increased pt participation with ADLs/IADLs. Pt reports completing shower this date, completing all aspects of bathing, however, spouse continues to assist with STS from shower chair as pt voices he feels unsure of himself during transitional movements. Spouse/pt report completing sink level ADLs with intermittent seated periods on elevated shower chair in effort to improve functional activity tolerance/participati on with ADL routine. Pt in stance with BUE support on FWW level x4 mins with 25% verbal cues for facilitaiton of upright posture & MOSQUERA recommending standing @ FWW kevek during TV commercial breaks to improve posture/strength/stam hilda, pt/spouse voice G understanding Patient/caregiver is able to teach back 50% of instruction. [facility] Visit Details Visit Type -POWER PRESS SUPERVISOR Routine Visi t Discipline -Physical Therapy Problems Problem Start Date Status Goals Interventions Assess and Instruct Home Visit Disciplines: Physical Therapy 05/08/2022 Active 3 goals linked to scheduled/documented interventions 5 goal interventions scheduled/documented in this visit Home Exercise Program Disciplines: Physical Therapy 05/08/2022 Active 1 goal linked to scheduled/documented intervention 1 goal intervention scheduled/documented in this visit Disease-Specific Rehabilitation Disciplines: Physical Therapy 05/08/2022 Active 1 goal linked to scheduled/documented intervention 1 goal intervention scheduled/documented in this visit Mobility Disciplines: Physical Therapy 05/08/2022 Active 1 goal linked to scheduled/documented intervention 1 goal intervention scheduled/documented in this visit Goals Goal Associated Problem Outcome Goal Met? Visit Notes Pain Assess and Instruct Home Visit No Medications Assess and Instruct Home Visit No Home Care Plan Assess and Instruct Home Visit No Home Exercise Program Home Exercise Program No Pulmonary Disease-Specific Rehabilitation No Mobility Mobility No Interventions Intervention Associated Problem/Goal Status Variance Visit Notes Pain Management Problem:Assess and Instruct Home Visit Goal:Pain Completed Patient reports:denies pain today Clinician taught: patient Clinician instructed on: denies pain Patient/caregiver is able to teach back 100% of instruction. Instruct Medication Management Problem:Assess and Instruct Home Visit Goal:Medications Completed Home Visit Med Education: Medication list reconciled. Medication profile and in-home medication list updated with appropriate changes. Discrepanices noted during home visit: none Instructed patient on dosing, purpose, and side effects. Medication education completed today on no change in medication(s). Patient/caregiver is able to teach back 100% of instruction. Falls Problem:Assess and Instruct Home Visit Goal:Home Care Plan Completed Clinician taught: patient 4-10 Patient IS at risk for falls (a score of 6 or greater is a predictor of future falls) and clinician instructed: proper footwear, improved lighting, remove clutter and throw rugs, safe cord/tubing management (O2, IV, Electrical, Manriquez), non-slip mats in tubs/showers, handrails/grab bar placement, assistive device usage, keep frequently used items in reach and emergency response system and/or keep phone on you and pt with dialysis and history of falls Patient/caregiver was able to demonstrate 100% via teachback Safety Problem:Assess and Instruct Home Visit Goal:Home Care Plan Completed Assessed patient vulnerability and home safety risks: yes Equipment reviewed yes Patient at risk for harm or abuse no Family members involved in safety plan for Level 2 or 3 Plan for Next Visit Problem:Assess and Instruct Home Visit Goal:Home Care Plan Completed Follow up education for next visit: hep Skilled intervention at next visit: upgrade as wanda Home Exercise Program Problem:Home Exercise Program Goal:Home Exercise Program Completed Patient reports: will perform daily Clinician taught: patient Clinician instructed on: est/implemented HEP this date will require additional guided skilled practice with each exercise. Patient/caregiver is able to teach back 100% of instruction. Pulmonary Problem:Disease-Specif ic Rehabilitation Goal:Pulmonary Completed Patient reports: no issues Clinician taught: patient Clinician instructed on: pt education provided on pt self monitoring technique for SOB, modifying hep as needed and safe activity progression with amb program with good understanding Patient/caregiver is able to teach back 100% of instruction. Instruct Mobility Problem:Mobility Goal:Mobility Completed Patient reports: no recent falls Clinician taught: patient Clinician instructed on: pt reports not wanting to sleep in bed due to uncomfortable bed, Skilled observation of transfers today along with instruction and education for safe hand/foot placement during sit<>stand transfers therapist provided verbal education on safe posture for amb with FWW, including the need for a wider JOSE and increased upright trunk to decrease risk for falls. Patient able to amb 2.5 min with FWW with CGA with 2L via nasal cannula. Pt did require assist for 02 tubing safety. Pt's SP02 did drop to 86 percent however with skilled education on proper breathing strategies-pt able to maintain at 96 percent pt wanda well today however does fatigue quickly and requires frequent restbreaks-time limitation for TUG test Patient/caregiver is able to teach back 100% of instruction. [facility] Visit Details Visit Type -SN HH Routine Vi sit Discipline -Snf Problems Problem Start Date Status Goals Interventions Assess and Instruct Home Visit Disciplines: Snf 05/01/2022 Active 1 goal linked to scheduled/documented intervention 4 goal interventions scheduled/documented in this visit Medication Management Disciplines: Snf 05/01/2022 Active 1 goal linked to scheduled/documented intervention 1 goal intervention scheduled/documented in this visit Pain Management Disciplines: Snf 05/01/2022 Active 1 goal linked to scheduled/documented intervention 1 goal intervention scheduled/documented in this visit Wound Care and/or Skin Problems Disciplines: Snf 05/01/2022 Active 1 goal linked to scheduled/documented intervention 1 goal intervention scheduled/documented in this visit Cardiac Disciplines: Snf 05/01/2022 Active 2 goals linked to scheduled/documented interventions 2 goal interventions scheduled/documented in this visit Gastrointestinal Disciplines: Snf 05/01/2022 Active 1 goal linked to scheduled/documented intervention 1 goal intervention scheduled/documented in this visit Respiratory Disciplines: Snf 05/01/2022 Active 1 goal linked to scheduled/documented intervention 1 goal intervention scheduled/documented in this visit Wound Care and/or Skin Problems Disciplines: Snf 05/12/2022 Active 1 goal linked to scheduled/documented intervention 1 goal intervention scheduled/documented in this visit Goals Goal Associated Problem Outcome Goal Met? Visit Notes Home Care Plan Assess and Instruct Home Visit No Medications Medication Management No Pain Pain Management No Wound/Incision Wound Care and/or Skin Problems No Heart Failure Cardiac No Cardiac Function Cardiac No Gastrointestinal Gastrointestinal No Oxygen Therapy Respiratory No Wound/Incision Wound Care and/or Skin Problems No Interventions Intervention Associated Problem/Goal Status Variance Visit Notes Falls Problem:Assess and Instruct Home Visit Goal:Home Care Plan Completed Clinician taught: patient and caregiver 4-10 Patient IS at risk for falls (a score of 6 or greater is a predictor of future falls) and clinician instructed: assistive device usage, keep frequently used items in reach and emergency response system and/or keep phone on you Patient/caregiver was able to demonstrate 100% via teachback Safety Problem:Assess and Instruct Home Visit Goal:Home Care Plan Completed Assessed patient vulnerability and home safety risks: none Equipment reviewed walker Patient at risk for harm or abuse no Family members involved in safety plan for Level 2 or 3 n/a Discharge Planning Problem:Assess and Instruct Home Visit Goal:Home Care Plan Completed Discharge from home care after there is no further skilled need. Plan for Next Visit Problem:Assess and Instruct Home Visit Goal:Home Care Plan Completed CP assess, VS, monitor dressing/wound care, medication education Instruct Medication Management Problem:Medication Management Goal:Medications Completed Home Visit Med Education: Medication list reconciled. Medication profile and in-home medication list updated with appropriate changes. Discrepanices noted during home visit: none Instructed patient on dosing, purpose, and side effects. Medication education completed today on gabapentin medication(s). Patient/caregiver is able to teach back 100% of instruction. Assess Pain Characteristics and Current Pain Regimen and Instruct Methods of Pain Relief Problem:Pain Management Goal:Pain Completed Wound/Incision Problem:Wound Care and/or Skin Problems Goal:Wound/Incision Completed Transparent dressing is still intact. Incision is clean, no s/sx of infection. Pt has f/u appt on Monday. Instruct Heart Failure Problem:Cardiac Goal:Heart Failure Completed Pt/spouse instructed on recognizing and managing signs and symptoms of heart failure. Instruct Impaired Cardiac Function Problem:Cardiac Goal:Cardiac Function Completed Pt/spouse instructed on recognizing and managing signs and symptoms of cardiac arrhythmia and hypertension. Instruct Alteration in GI Function Problem:Gastrointest inal Goal:Gastrointestina l Completed Pt denies any GI issues/concerns at this time. Instruct Oxygen Usage Problem:Respiratory Goal:Oxygen Therapy Completed Pt/spouse report no concerns with oxygen equipment at this time. Wound/Incision Problem:Wound Care and/or Skin Problems Goal:Wound/Incision Completed Coccyx wound washed with soap and water, patted dry, and a thin layer of skin barrier paste was applied. pt tolerated well. [facility] Visit Details Visit Type -MOSQUERA Routine Vis it Discipline -Occupational Therapy Problems Problem Start Date Status Goals Interventions Assess and Instruct Home Visit Disciplines: Occupational Therapy 05/02/2022 Active 1 goal linked to scheduled/documented intervention 1 goal intervention scheduled/documented in this visit Disease-Specific Rehabilitation Disciplines: Occupational Therapy 05/02/2022 Active 1 goal linked to scheduled/documented intervention 1 goal intervention scheduled/documented in this visit Goals Goal Associated Problem Outcome Goal Met? Visit Notes Home Care Plan Assess and Instruct Home Visit No Post-Surgical Disease-Specific Rehabilitation No Interventions Intervention Associated Problem/Goal Status Variance Visit Notes Falls Problem:Assess and Instruct Home Visit Goal:Home Care Plan Completed Clinician taught: patient 4-10 Patient IS at risk for falls (a score of 6 or greater is a predictor of future falls) and clinician instructed: safe cord/tubing management (O2) Patient/caregiver was able to demonstrate 75% via teachback Instruct Post-op Care Problem:Disease-Specif ic Rehabilitation Goal:Post-Surgical Completed Patient reports: mild chronic back pain Clinician taught: patient Clinician instructed on: light resistance exercises, provided HEP worksheet & instructed pt in progressivly grading resistance beginning with 12 oz bottled water x10 reps, pt requires 50% visual/25% verbal cues for correct technique, exercises alternating from seated to standing with reports of back pain increasing from 5/10 while seated to 8/10 at rest. MOSQUERA advised use of heat/ice x20 min for pain relief pre/post exercises, pt voices understanding and reports he will trial. Recommended HEP frequency of 1-2x/day x10-15 reps. Pt is able to verbalize recall of back precautions, BLT. Pt/spouse report increased pt participation with ADLs/IADLs. Pt reports completing shower this date, completing all aspects of bathing, however, spouse continues to assist with STS from shower chair as pt voices he feels unsure of himself during transitional movements. Spouse/pt report completing sink level ADLs with intermittent seated periods on elevated shower chair in effort to improve functional activity tolerance/participati on with ADL routine. Pt in stance with BUE support on FWW level x4 mins with 25% verbal cues for facilitaiton of upright posture & MOSQUERA recommending standing @ FWW kevek during TV commercial breaks to improve posture/strength/stam hilda, pt/spouse voice G understanding Patient/caregiver is able to teach back 50% of instruction. [facility] Visit Details Visit Type -MOSQUERA Routine Vis it Discipline -Occupational Therapy Problems Problem Start Date Status Goals Interventions Assess and Instruct Home Visit Disciplines: Occupational Therapy 05/02/2022 Active 1 goal linked to scheduled/documented intervention 3 goal interventions scheduled/documented in this visit Disease-Specific Rehabilitation Disciplines: Occupational Therapy 05/02/2022 Active 1 goal linked to scheduled/documented intervention 1 goal intervention scheduled/documented in this visit Goals Goal Associated Problem Outcome Goal Met? Visit Notes Home Care Plan Assess and Instruct Home Visit No Post-Surgical Disease-Specific Rehabilitation No Interventions Intervention Associated Problem/Goal Status Variance Visit Notes Falls Problem:Assess and Instruct Home Visit Goal:Home Care Plan Completed no falls Safety Problem:Assess and Instruct Home Visit Goal:Home Care Plan Completed Assessed patient vulnerability and home safety risks: yes Equipment reviewed grab bars/FWW Patient at risk for harm or abuse no Family members involved in safety plan for Level 2 or 3 yes Plan for Next Visit Problem:Assess and Instruct Home Visit Goal:Home Care Plan Completed Follow up education for next visit: post op precautions Skilled intervention at next visit: HEP Instruct Post-op Care Problem:Disease-Specif ic Rehabilitation Goal:Post-Surgical Completed Patient reports: verbalizing Bending/lifting twisting precautions Clinician taught: patient and caregiver Clinician instructed on: purpose of precautions/risks of not following precautions, pt voices understanding and reports spouse often reminds him to avoid bending over to pick things up. 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 Pt voices he would like to get stronger,however, voices particpiation in IADL tasks is unrealistic as he has not completed any snack item retreival in years, spouse agrees. Education provided on strategies to improve strength/stamina by standing @ FWW during commerical breaks while watching TV, folding laundry, & completing grooming while seated on counter height stool in bathroom. Patient/caregiver is able to teach back 90% of instruction. [facility] Visit Details Visit Type -OT Non-OASIS/Dis cipl Discharge Discipline -Occupational Therapy Problems Problem Start Date Status Goals Interventions Assess and Instruct Home Visit Disciplines: Occupational Therapy 05/02/2022 Resolved on 05/13/2022 1 goal linked to scheduled/documented intervention Disease-Specific Rehabilitation Disciplines: Occupational Therapy 05/02/2022 Resolved on 05/13/2022 1 goal linked to scheduled/documented intervention Goals Goal Associated Problem Outcome Goal Met? Visit Notes Home Care Plan Assess and Instruct Home Visit Completed Yes Post-Surgical Disease-Specific Rehabilitation Completed Yes Pt has completed both goals with good results and pt in good spirits. He knows how to progress his own UE exercise program. He stands at sink for some tasks, sits for shaving. He does not need to be followed to the bathroom for toileting and gets his own clothing set up. He realizes that he needs to use the veterinary medical officer instead of bending over. [facility] Visit Details Visit Type -POWER PRESS SUPERVISOR Routine Visi t Discipline -Physical Therapy Problems Problem Start Date Status Goals Interventions Assess and Instruct Home Visit Disciplines: Physical Therapy 05/08/2022 Active 3 goals linked to scheduled/documented interventions 5 goal interventions scheduled/documented in this visit Home Exercise Program Disciplines: Physical Therapy 05/08/2022 Active 1 goal linked to scheduled/documented intervention 1 goal intervention scheduled/documented in this visit Disease-Specific Rehabilitation Disciplines: Physical Therapy 05/08/2022 Active 1 goal linked to scheduled/documented intervention 1 goal intervention scheduled/documented in this visit Mobility Disciplines: Physical Therapy 05/08/2022 Active 1 goal linked to scheduled/documented intervention 1 goal intervention scheduled/documented in this visit Goals Goal Associated Problem Outcome Goal Met? Visit Notes Pain Assess and Instruct Home Visit No Medications Assess and Instruct Home Visit No Home Care Plan Assess and Instruct Home Visit No Home Exercise Program Home Exercise Program No Pulmonary Disease-Specific Rehabilitation No Mobility Mobility No Interventions Intervention Associated Problem/Goal Status Variance Visit Notes Pain Management Problem:Assess and Instruct Home Visit Goal:Pain Completed Patient reports:denies pain today Clinician taught: patient Clinician instructed on: denies pain Patient/caregiver is able to teach back 100% of instruction. Instruct Medication Management Problem:Assess and Instruct Home Visit Goal:Medications Completed Home Visit Med Education: Medication list reconciled. Medication profile and in-home medication list updated with appropriate changes. Discrepanices noted during home visit: none Instructed patient on dosing, purpose, and side effects. Medication education completed today on no change in medication(s). Patient/caregiver is able to teach back 100% of instruction. Falls Problem:Assess and Instruct Home Visit Goal:Home Care Plan Completed Clinician taught: patient 4-10 Patient IS at risk for falls (a score of 6 or greater is a predictor of future falls) and clinician instructed: proper footwear, improved lighting, remove clutter and throw rugs, safe cord/tubing management (O2, IV, Electrical, Manriquez), non-slip mats in tubs/showers, handrails/grab bar placement, assistive device usage, keep frequently used items in reach and emergency response system and/or keep phone on you and pt with dialysis and history of falls Patient/caregiver was able to demonstrate 100% via teachback Safety Problem:Assess and Instruct Home Visit Goal:Home Care Plan Completed Assessed patient vulnerability and home safety risks: yes Equipment reviewed yes Patient at risk for harm or abuse no Family members involved in safety plan for Level 2 or 3 Plan for Next Visit Problem:Assess and Instruct Home Visit Goal:Home Care Plan Completed Follow up education for next visit: hep Skilled intervention at next visit: upgrade as wanda Home Exercise Program Problem:Home Exercise Program Goal:Home Exercise Program Completed Patient reports: will perform daily Clinician taught: patient Clinician instructed on: est/implemented HEP this date will require additional guided skilled practice with each exercise. Patient/caregiver is able to teach back 100% of instruction. Pulmonary Problem:Disease-Specif ic Rehabilitation Goal:Pulmonary Completed Patient reports: no issues Clinician taught: patient Clinician instructed on: pt education provided on pt self monitoring technique for SOB, modifying hep as needed and safe activity progression with amb program with good understanding Patient/caregiver is able to teach back 100% of instruction. Instruct Mobility Problem:Mobility Goal:Mobility Completed Patient reports: no recent falls Clinician taught: patient Clinician instructed on: pt reports not wanting to sleep in bed due to uncomfortable bed, Skilled observation of transfers today along with instruction and education for safe hand/foot placement during sit<>stand transfers therapist provided verbal education on safe posture for amb with FWW, including the need for a wider JOSE and increased upright trunk to decrease risk for falls. Patient able to amb 2.5 min with FWW with CGA with 2L via nasal cannula. Pt did require assist for 02 tubing safety. Pt's SP02 did drop to 86 percent however with skilled education on proper breathing strategies-pt able to maintain at 96 percent pt wanda well today however does fatigue quickly and requires frequent restbreaks-time limitation for TUG test Patient/caregiver is able to teach back 100% of instruction. 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 PRESS SUPERVISOR Routine Visi t Discipline -Physical Therapy Problems Problem Start Date Status Goals Interventions Assess and Instruct Home Visit Disciplines: Physical Therapy 05/08/2022 Active 3 goals linked to scheduled/documented interventions 5 goal interventions scheduled/documented in this visit Home Exercise Program Disciplines: Physical Therapy 05/08/2022 Active 1 goal linked to scheduled/documented intervention 1 goal intervention scheduled/documented in this visit Disease-Specific Rehabilitation Disciplines: Physical Therapy 05/08/2022 Active 1 goal linked to scheduled/documented intervention 1 goal intervention scheduled/documented in this visit Mobility Disciplines: Physical Therapy 05/08/2022 Active 1 goal linked to scheduled/documented intervention 1 goal intervention scheduled/documented in this visit Goals Goal Associated Problem Outcome Goal Met? Visit Notes Pain Assess and Instruct Home Visit No Medications Assess and Instruct Home Visit No Home Care Plan Assess and Instruct Home Visit No Home Exercise Program Home Exercise Program No Pulmonary Disease-Specific Rehabilitation No Mobility Mobility No Interventions Intervention Associated Problem/Goal Status Variance Visit Notes Pain Management Problem:Assess and Instruct Home Visit Goal:Pain Completed Patient reports: denies pain Clinician taught: patient Clinician instructed on: denies pain Patient/caregiver is able to teach back 100% of instruction. Instruct Medication Management Problem:Assess and Instruct Home Visit Goal:Medications Completed Home Visit Med Education: Medication list reconciled. Medication profile and in-home medication list updated with appropriate changes. Discrepanices noted during home visit: none Instructed patient on dosing, purpose, and side effects. Medication education completed today on no change in medication(s). Patient/caregiver is able to teach back 100% of instruction. Falls Problem:Assess and Instruct Home Visit Goal:Home Care Plan Completed Clinician taught: patient 4-10 Patient IS at risk for falls (a score of 6 or greater is a predictor of future falls) and clinician instructed: proper footwear, improved lighting, remove clutter and throw rugs, safe cord/tubing management (O2, IV, Electrical, Manriquez), non-slip mats in tubs/showers, handrails/grab bar placement, assistive device usage, keep frequently used items in reach and emergency response system and/or keep phone on you and Patient/caregiver was able to demonstrate 100% via teachback Safety Problem:Assess and Instruct Home Visit Goal:Home Care Plan Completed Assessed patient vulnerability and home safety risks: yes Equipment reviewed yes Patient at risk for harm or abuse no Family members involved in safety plan for Level 2 or 3 Plan for Next Visit Problem:Assess and Instruct Home Visit Goal:Home Care Plan Completed Follow up education for next visit: hep Skilled intervention at next visit: enter/exit home Home Exercise Program Problem:Home Exercise Program Goal:Home Exercise Program Completed Patient reports: good compliance and follow through Clinician taught: patient Clinician instructed on: reviewed programs in place with good understanding and provided skilled pt education on completing these daily Patient/caregiver is able to teach back 100% of instruction. Pulmonary Problem:Disease-Specif ic Rehabilitation Goal:Pulmonary Completed Patient reports: no issues Clinician taught: patient Clinician instructed on: PT services focused on energy conservation techniques and monitoring SP02 with good understanding Patient/caregiver is able to teach back 100% of instruction. Instruct Mobility Problem:Mobility Goal:Mobility Completed Patient reports: no falls Clinician taught: patient Clinician instructed on: pt does not want to return to sleeping in bed-declines the need to perform bed mobility pt is improving with all functional transfers however pt can be slightly impulsive at times with safety therapist provided verbal education on safe posture for amb with RW, including the need for a wider JOSE and increased upright trunk to decrease risk for falls. Patient able to amb 100 ft with RW with CGA on outside terrain with emphasis on slight uphill/downhill. Pt required a seated restbreak with 02 via nasal cannula at 90 percent-required verbal cues for proper diaphragmatic breathing strategies to increase lung capacity. Pt then amb an additional 100 ft with RW enter/exit home with Wendy for safety and sequencing pt utilizes sidestepping method to ascend/descend 4 steps and HR and grab bar while descending pt with heavy lean forward onto each step with verbal cues for safety with Wendy of therapist to control while ascending pt requires Wendy due to patient not placing full foot onto each step resulting in patient falling backward requiring Wendy to control Patient/caregiver is able to teach back 100% of instruction. 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 PRESS SUPERVISOR Routine Visi t Discipline -Physical Therapy Problems Problem Start Date Status Goals Interventions Assess and Instruct Home Visit Disciplines: Physical Therapy 05/08/2022 Active 2 goals linked to scheduled/documented interventions 4 goal interventions scheduled/documented in this visit Home Exercise Program Disciplines: Physical Therapy 05/08/2022 Active 1 goal linked to scheduled/documented intervention 1 goal intervention scheduled/documented in this visit Mobility Disciplines: Physical Therapy 05/08/2022 Active 1 goal linked to scheduled/documented intervention 1 goal intervention scheduled/documented in this visit Goals Goal Associated Problem Outcome Goal Met? Visit Notes Medications Assess and Instruct Home Visit No Home Care Plan Assess and Instruct Home Visit No Home Exercise Program Home Exercise Program No Mobility Mobility No Interventions Intervention Associated Problem/Goal Status Variance Visit Notes Instruct Medication Management Problem:Assess and Instruct Home Visit Goal:Medications Completed Home Visit Med Education: Medication list reconciled. Medication profile and in-home medication list updated with appropriate changes. Discrepanices noted during home visit: none Instructed patient on dosing, purpose, and side effects. Medication education completed today on all medication(s). Patient/caregiver is able to teach back 80% of instruction. Falls Problem:Assess and Instruct Home Visit Goal:Home Care Plan Completed Clinician taught: patient clinician instructed: proper footwear, improved lighting and remove clutter and throw rugs Patient/caregiver was able to demonstrate 80% via teachback Safety Problem:Assess and Instruct Home Visit Goal:Home Care Plan Completed Assessed patient vulnerability and home safety risks: yes Equipment reviewed yes Patient at risk for harm or abuse no Family members involved in safety plan for Level 2 or 3 yes Plan for Next Visit Problem:Assess and Instruct Home Visit Goal:Home Care Plan Completed Follow up education for next visit: safety precautions Skilled intervention at next visit: POWER PRESS SUPERVISOR plan to continue transfer trianing for increased safety and reduce risk for falls. Home Exercise Program Problem:Home Exercise Program Goal:Home Exercise Program Completed Patient reports: fair compliance Clinician taught: patient Clinician instructed on: POWER PRESS SUPERVISOR reviews standing HEP with patient. Patient demos fair recall with technique and reports fair compliance with exercise program. Patient/caregiver is able to teach back 80% of instruction. Patient with O2 donned during therex at 2L, SPO2 levels still dropped to 79% during standing therex, POWER PRESS SUPERVISOR provides cues again for PLB techniques, fair carryover, SPO2 levels returned to 93%+ by end of session. patient left in chair with O2 donned with spouse present Instruct Mobility Problem:Mobility Goal:Mobility Completed Patient reports: no falls Clinician taught: patient Clinician instructed on: POWER PRESS SUPERVISOR provides skilled instruct for pateint to compelte STS t/f from chair with POWER PRESS SUPERVISOR CGA during for safety, max verbal cues for proper technique and safety awareness to avoid a fall, patient with one major LOB requiring Wendy from POWER PRESS SUPERVISOR to prevent fall, skilled instruct for patient to complete stair training with CGA and use of grab bars, patient with poor safety awareness as noted by impulsivity, O2 tubing too short to reach garage, doffed tubing, constant cues to patient for proper breathing techniques. POWER PRESS SUPERVISOR provides skilled instruct for patient to complete car transfer training with POWER PRESS SUPERVISOR providing demo for maximum safety, implemented wooden step to increase safety, spouse present for traiing with both patient and spouse report understanding on use of wooden step to increase safety. patient continues to demo impulsivity with all transfers and mobility, constant cues to correct. upon return to sit in chair, SPO2 levels 68%, immediately donned O2 and POWER PRESS SUPERVISOR instructed patient to compelte PLB techniques, cues to continue these until SPO@ levels returned to 94%, O2 on 2L for entire session. Patient/caregiver is able to teach back 80% of instruction. [facility] Visit Details Visit Type -SN HH Routine Vi sit Discipline -Snf Problems Problem Start Date Status Goals Interventions Assess and Instruct Home Visit Disciplines: Snf 05/01/2022 Active 1 goal linked to scheduled/documented intervention 4 goal interventions scheduled/documented in this visit Medication Management Disciplines: Snf 05/01/2022 Active 1 goal linked to scheduled/documented intervention 1 goal intervention scheduled/documented in this visit Pain Management Disciplines: Snf 05/01/2022 Active 1 goal linked to scheduled/documented intervention 1 goal intervention scheduled/documented in this visit Wound Care and/or Skin Problems Disciplines: Snf 05/01/2022 Active 1 goal linked to scheduled/documented intervention 1 goal intervention scheduled/documented in this visit Cardiac Disciplines: Snf 05/01/2022 Active 2 goals linked to scheduled/documented interventions 2 goal interventions scheduled/documented in this visit Gastrointestinal Disciplines: Snf 05/01/2022 Active 1 goal linked to scheduled/documented intervention 1 goal intervention scheduled/documented in this visit Respiratory Disciplines: Snf 05/01/2022 Active 1 goal linked to scheduled/documented intervention 1 goal intervention scheduled/documented in this visit Wound Care and/or Skin Problems Disciplines: Snf 05/12/2022 Active 1 goal linked to scheduled/documented intervention 1 goal intervention scheduled/documented in this visit Goals Goal Associated Problem Outcome Goal Met? Visit Notes Home Care Plan Assess and Instruct Home Visit No Medications Medication Management No Pain Pain Management No Wound/Incision Wound Care and/or Skin Problems No Heart Failure Cardiac No Cardiac Function Cardiac No Gastrointestinal Gastrointestinal No Oxygen Therapy Respiratory No Wound/Incision Wound Care and/or Skin Problems No Interventions Intervention Associated Problem/Goal Status Variance Visit Notes Falls Problem:Assess and Instruct Home Visit Goal:Home Care Plan Completed Clinician taught: patient and caregiver 4-10 Patient IS at risk for falls (a score of 6 or greater is a predictor of future falls) and clinician instructed: assistive device usage, keep frequently used items in reach and emergency response system and/or keep phone on you Patient/caregiver was able to demonstrate 100% via teachback Safety Problem:Assess and Instruct Home Visit Goal:Home Care Plan Completed Assessed patient vulnerability and home safety risks: none Equipment reviewed wheelchair, walker Patient at risk for harm or abuse no Family members involved in safety plan for Level 2 or 3 n/a Discharge Planning Problem:Assess and Instruct Home Visit Goal:Home Care Plan Completed Discharge from home care after there is no further skilled need. Plan for Next Visit Problem:Assess and Instruct Home Visit Goal:Home Care Plan Completed CP assess, VS, monitor dressing/wound care, medication education Instruct Medication Management Problem:Medication Management Goal:Medications Completed Home Visit Med Education: Medication list reconciled. Medication profile and in-home medication list updated with appropriate changes. Discrepanices noted during home visit: none Instructed patient on dosing, purpose, and side effects. Medication education completed today on coreg medication(s). Patient/caregiver is able to teach back 100% of instruction. Assess Pain Characteristics and Current Pain Regimen and Instruct Methods of Pain Relief Problem:Pain Management Goal:Pain Completed Wound/Incision Problem:Wound Care and/or Skin Problems Goal:Wound/Incision Abdominal surgical incision is CDI. The dressing has come off on its own. Instruct Heart Failure Problem:Cardiac Goal:Heart Failure Completed Pt/spouse instructed on recognizing and managing signs and symptoms of heart failure. Instruct Impaired Cardiac Function Problem:Cardiac Goal:Cardiac Function Completed Pt/spouse instructed on recognizing and managing signs and symptoms of cardiac arrhythmia and hypertension. Instruct Alteration in GI Function Problem:Gastrointest inal Goal:Gastrointestina l Completed Pt denies any GI issues at this time. Instruct Oxygen Usage Problem:Respiratory Goal:Oxygen Therapy Completed Pt/spouse are confident with their knowledge of the O2 euipment. Wound/Incision Problem:Wound Care and/or Skin Problems Goal:Wound/Incision Completed Coccyx wound is healing. Site washed with soap and water, patted dry, skin barrier paste applied. Pt's is providing good care for this wound everyday. [facility] Visit Details Visit Type -POWER PRESS SUPERVISOR Routine Visi t Discipline -Physical Therapy Problems Problem Start Date Status Goals Interventions Assess and Instruct Home Visit Disciplines: Physical Therapy 05/08/2022 Active 2 goals linked to scheduled/documented interventions 4 goal interventions scheduled/documented in this visit Home Exercise Program Disciplines: Physical Therapy 05/08/2022 Active 1 goal linked to scheduled/documented intervention 1 goal intervention scheduled/documented in this visit Mobility Disciplines: Physical Therapy 05/08/2022 Active 1 goal linked to scheduled/documented intervention 1 goal intervention scheduled/documented in this visit Goals Goal Associated Problem Outcome Goal Met? Visit Notes Medications Assess and Instruct Home Visit No Home Care Plan Assess and Instruct Home Visit No Home Exercise Program Home Exercise Program No Mobility Mobility No Interventions Intervention Associated Problem/Goal Status Variance Visit Notes Instruct Medication Management Problem:Assess and Instruct Home Visit Goal:Medications Completed Home Visit Med Education: Medication list reconciled. Medication profile and in-home medication list updated with appropriate changes. Discrepanices noted during home visit: none Instructed patient on dosing, purpose, and side effects. Medication education completed today on all medication(s). Patient/caregiver is able to teach back 80% of instruction. Falls Problem:Assess and Instruct Home Visit Goal:Home Care Plan Completed Clinician taught: patient clinician instructed: proper footwear, improved lighting and remove clutter and throw rugs Patient/caregiver was able to demonstrate 80% via teachback Safety Problem:Assess and Instruct Home Visit Goal:Home Care Plan Completed Assessed patient vulnerability and home safety risks: yes Equipment reviewed yes Patient at risk for harm or abuse no Family members involved in safety plan for Level 2 or 3 yes Plan for Next Visit Problem:Assess and Instruct Home Visit Goal:Home Care Plan Completed Follow up education for next visit: safety precautions Skilled intervention at next visit: POWER PRESS SUPERVISOR plan to continue transfer trianing for increased safety and reduce risk for falls. Home Exercise Program Problem:Home Exercise Program Goal:Home Exercise Program Completed Patient reports: fair compliance Clinician taught: patient Clinician instructed on: POWER PRESS SUPERVISOR reviews standing HEP with patient. Patient demos fair recall with technique and reports fair compliance with exercise program. Patient/caregiver is able to teach back 80% of instruction. Patient with O2 donned during therex at 2L, SPO2 levels still dropped to 79% during standing therex, POWER PRESS SUPERVISOR provides cues again for PLB techniques, fair carryover, SPO2 levels returned to 93%+ by end of session. patient left in chair with O2 donned with spouse present Instruct Mobility Problem:Mobility Goal:Mobility Completed Patient reports: no falls Clinician taught: patient Clinician instructed on: POWER PRESS SUPERVISOR provides skilled instruct for pateint to compelte STS t/f from chair with POWER PRESS SUPERVISOR CGA during for safety, max verbal cues for proper technique and safety awareness to avoid a fall, patient with one major LOB requiring Wendy from POWER PRESS SUPERVISOR to prevent fall, skilled instruct for patient to complete stair training with CGA and use of grab bars, patient with poor safety awareness as noted by impulsivity, O2 tubing too short to reach garage, doffed tubing, constant cues to patient for proper breathing techniques. POWER PRESS SUPERVISOR provides skilled instruct for patient to complete car transfer training with POWER PRESS SUPERVISOR providing demo for maximum safety, implemented wooden step to increase safety, spouse present for traiing with both patient and spouse report understanding on use of wooden step to increase safety. patient continues to demo impulsivity with all transfers and mobility, constant cues to correct. upon return to sit in chair, SPO2 levels 68%, immediately donned O2 and POWER PRESS SUPERVISOR instructed patient to compelte PLB techniques, cues to continue these until SPO@ levels returned to 94%, O2 on 2L for entire session. Patient/caregiver is able to teach back 80% of instruction. 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 PRESS SUPERVISOR Routine Visi t Discipline -Physical Therapy Problems Problem Start Date Status Goals Interventions Assess and Instruct Home Visit Disciplines: Physical Therapy 05/08/2022 Active 3 goals linked to scheduled/documented interventions 5 goal interventions scheduled/documented in this visit Home Exercise Program Disciplines: Physical Therapy 05/08/2022 Active 1 goal linked to scheduled/documented intervention 1 goal intervention scheduled/documented in this visit Disease-Specific Rehabilitation Disciplines: Physical Therapy 05/08/2022 Active 1 goal linked to scheduled/documented intervention 1 goal intervention scheduled/documented in this visit Mobility Disciplines: Physical Therapy 05/08/2022 Active 1 goal linked to scheduled/documented intervention 1 goal intervention scheduled/documented in this visit Goals Goal Associated Problem Outcome Goal Met? Visit Notes Pain Assess and Instruct Home Visit No Medications Assess and Instruct Home Visit No Home Care Plan Assess and Instruct Home Visit No Home Exercise Program Home Exercise Program No Pulmonary Disease-Specific Rehabilitation No Mobility Mobility No Interventions Intervention Associated Problem/Goal Status Variance Visit Notes Pain Management Problem:Assess and Instruct Home Visit Goal:Pain Completed Patient reports: denies pain Clinician taught: patient Clinician instructed on: denies pain Patient/caregiver is able to teach back 100% of instruction. Instruct Medication Management Problem:Assess and Instruct Home Visit Goal:Medications Completed Home Visit Med Education: Medication list reconciled. Medication profile and in-home medication list updated with appropriate changes. Discrepanices noted during home visit: none Instructed patient on dosing, purpose, and side effects. Medication education completed today on no change in medication(s). Patient/caregiver is able to teach back 100% of instruction. Falls Problem:Assess and Instruct Home Visit Goal:Home Care Plan Completed Clinician taught: patient 4-10 Patient IS at risk for falls (a score of 6 or greater is a predictor of future falls) and clinician instructed: proper footwear, improved lighting, remove clutter and throw rugs, safe cord/tubing management (O2, IV, Electrical, Manriquez), non-slip mats in tubs/showers, handrails/grab bar placement, assistive device usage, keep frequently used items in reach and emergency response system and/or keep phone on you and Patient/caregiver was able to demonstrate 100% via teachback Safety Problem:Assess and Instruct Home Visit Goal:Home Care Plan Completed Assessed patient vulnerability and home safety risks: yes Equipment reviewed yes Patient at risk for harm or abuse no Family members involved in safety plan for Level 2 or 3 Plan for Next Visit Problem:Assess and Instruct Home Visit Goal:Home Care Plan Completed Follow up education for next visit: hep Skilled intervention at next visit: enter/exit home Home Exercise Program Problem:Home Exercise Program Goal:Home Exercise Program Completed Patient reports: good compliance and follow through Clinician taught: patient Clinician instructed on: reviewed programs in place with good understanding and provided skilled pt education on completing these daily Patient/caregiver is able to teach back 100% of instruction. Pulmonary Problem:Disease-Specif ic Rehabilitation Goal:Pulmonary Completed Patient reports: no issues Clinician taught: patient Clinician instructed on: PT services focused on energy conservation techniques and monitoring SP02 with good understanding Patient/caregiver is able to teach back 100% of instruction. Instruct Mobility Problem:Mobility Goal:Mobility Completed Patient reports: no falls Clinician taught: patient Clinician instructed on: pt does not want to return to sleeping in bed-declines the need to perform bed mobility pt is improving with all functional transfers however pt can be slightly impulsive at times with safety therapist provided verbal education on safe posture for amb with RW, including the need for a wider JOSE and increased upright trunk to decrease risk for falls. Patient able to amb 100 ft with RW with CGA on outside terrain with emphasis on slight uphill/downhill. Pt required a seated restbreak with 02 via nasal cannula at 90 percent-required verbal cues for proper diaphragmatic breathing strategies to increase lung capacity. Pt then amb an additional 100 ft with RW enter/exit home with Wendy for safety and sequencing pt utilizes sidestepping method to ascend/descend 4 steps and HR and grab bar while descending pt with heavy lean forward onto each step with verbal cues for safety with Wendy of therapist to control while ascending pt requires Wendy due to patient not placing full foot onto each step resulting in patient falling backward requiring Wendy to control Patient/caregiver is able to teach back 100% of instruction. [facility] Visit Details Visit Type -PT Reassessment Discipline -Physical Therapy Problems Problem Start Date Status Goals Interventions Assess and Instruct Home Visit Disciplines: Physical Therapy 05/08/2022 Active 2 goals linked to scheduled/documented interventions 5 goal interventions scheduled/documented in this visit Home Exercise Program Disciplines: Physical Therapy 05/08/2022 Active 1 goal linked to scheduled/documented intervention 1 goal intervention scheduled/documented in this visit Disease-Specific Rehabilitation Disciplines: Physical Therapy 05/08/2022 Active 1 goal linked to scheduled/documented intervention 1 goal intervention scheduled/documented in this visit Mobility Disciplines: Physical Therapy 05/08/2022 Active 1 goal linked to scheduled/documented intervention 1 goal intervention scheduled/documented in this visit Goals Goal Associated Problem Outcome Goal Met? Visit Notes Medications Assess and Instruct Home Visit No Home Care Plan Assess and Instruct Home Visit No Home Exercise Program Home Exercise Program No Pulmonary Disease-Specific Rehabilitation No Mobility Mobility No Interventions Intervention Associated Problem/Goal Status Variance Visit Notes Instruct Medication Management Problem:Assess and Instruct Home Visit Goal:Medications Scheduled Falls Problem:Assess and Instruct Home Visit Goal:Home Care Plan Scheduled TU seconds 30 SCST:4 Safety Problem:Assess and Instruct Home Visit Goal:Home Care Plan Scheduled Reinforced education on falls risk reduction and line management Plan for Next Visit Problem:Assess and Instruct Home Visit Goal:Home Care Plan Scheduled Therapy Reassessment Problem:Assess and Instruct Home Visit Goal:Home Care Plan PT RA complete this date, PT has completed 4 visits with focus on improving strength, endurance, gait, and transfers. Patient demonstrates progress towards goals including gradual improved strength and gait quality but continues to have endurance deficits and difficulty with line management to reduce risk of falls. PT to continue at a frequency of 1x4 to continue addressing impaired endurance, strength, line management, stair training.. Standardized testing scores include: TU.7 seconds and 30 second chair stand test: 4. Due to severity at onset, comorbidities, age, and complications during POC, patient would continue to benefit from skilled physical therapy. Patient is a good rehabilitation candidate due to strong family support, motivated/participatio n in POC, good adherence to recommendation/modific ations and compliance with HEP. Home Exercise Program Problem:Home Exercise Program Goal:Home Exercise Program Pt states he has been completing HEP, reinforced need for continue HEP compliance and to increase frequency of completion Pulmonary Problem:Disease-Specif ic Rehabilitation Goal:Pulmonary Pt educated on importance of donning supplemental O2 at all times to reduce risk of syncope Instruct Mobility Problem:Mobility Goal:Mobility Pt instructed to continue use of FWW and supervision with all functional mobility to reduce risk of falls. [facility] Visit Details Visit Type -SN HH Routine Vi sit Discipline -Snf Problems Problem Start Date Status Goals Interventions Assess and Instruct Home Visit Disciplines: Snf 05/01/2022 Active 1 goal linked to scheduled/documented intervention 4 goal interventions scheduled/documented in this visit Medication Management Disciplines: Snf 05/01/2022 Active 1 goal linked to scheduled/documented intervention 1 goal intervention scheduled/documented in this visit Pain Management Disciplines: Snf 05/01/2022 Active 1 goal linked to scheduled/documented intervention 1 goal intervention scheduled/documented in this visit Cardiac Disciplines: Snf 05/01/2022 Active 2 goals linked to scheduled/documented interventions 2 goal interventions scheduled/documented in this visit Gastrointestinal Disciplines: Snf 05/01/2022 Active 1 goal linked to scheduled/documented intervention 1 goal intervention scheduled/documented in this visit Respiratory Disciplines: Snf 05/01/2022 Active 1 goal linked to scheduled/documented intervention 1 goal intervention scheduled/documented in this visit Goals Goal Associated Problem Outcome Goal Met? Visit Notes Home Care Plan Assess and Instruct Home Visit No Medications Medication Management No Pain Pain Management No Heart Failure Cardiac No Cardiac Function Cardiac No Gastrointestinal Gastrointestinal No Oxygen Therapy Respiratory No Interventions Intervention Associated Problem/Goal Status Variance Visit Notes Falls Problem:Assess and Instruct Home Visit Goal:Home Care Plan Completed Clinician taught: patient and caregiver 4-10 Patient IS at risk for falls (a score of 6 or greater is a predictor of future falls) and clinician instructed: assistive device usage, keep frequently used items in reach and emergency response system and/or keep phone on you Patient/caregiver was able to demonstrate 100% via teachback Safety Problem:Assess and Instruct Home Visit Goal:Home Care Plan Completed Assessed patient vulnerability and home safety risks: none Equipment reviewed walker, oxygen Patient at risk for harm or abuse no Family members involved in safety plan for Level 2 or 3 n/a Discharge Planning Problem:Assess and Instruct Home Visit Goal:Home Care Plan Completed Discharge from home care after there is no further skilled need. Plan for Next Visit Problem:Assess and Instruct Home Visit Goal:Home Care Plan Completed CP assess, VS, monitor dressing/wound care, medication education Instruct Medication Management Problem:Medication Management Goal:Medications Completed Home Visit Med Education: Medication list reconciled. Medication profile and in-home medication list updated with appropriate changes. Discrepanices noted during home visit: none Instructed patient on dosing, purpose, and side effects. Medication education completed today on synthroid medication(s). Patient/caregiver is able to teach back 100% of instruction. Assess Pain Characteristics and Current Pain Regimen and Instruct Methods of Pain Relief Problem:Pain Management Goal:Pain Completed Instruct Heart Failure Problem:Cardiac Goal:Heart Failure Completed Recognizing and managing signs and symptoms of heart failure reviewed with pt/spouse Instruct Impaired Cardiac Function Problem:Cardiac Goal:Cardiac Function Completed pt/spouse instructed on recognizing and managing signs and symptoms of cardiac arrhythmia and hypertension. Instruct Alteration in GI Function Problem:Gastrointest inal Goal:Gastrointestina l Completed pt denies GI issues at this time. Instruct Oxygen Usage Problem:Respiratory Goal:Oxygen Therapy Completed Pt/spouse instructed on management/precaution s of oxygen therapy and care of equipment, and on proper storage of oxygen. 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 PRESS SUPERVISOR Routine Visi t Discipline -Physical Therapy Problems Problem Start Date Status Goals Interventions Assess and Instruct Home Visit Disciplines: Physical Therapy 05/08/2022 Active 2 goals linked to scheduled/documented interventions 4 goal interventions scheduled/documented in this visit Home Exercise Program Disciplines: Physical Therapy 05/08/2022 Active 1 goal linked to scheduled/documented intervention 1 goal intervention scheduled/documented in this visit Mobility Disciplines: Physical Therapy 05/08/2022 Active 1 goal linked to scheduled/documented intervention 1 goal intervention scheduled/documented in this visit Goals Goal Associated Problem Outcome Goal Met? Visit Notes Medications Assess and Instruct Home Visit No Home Care Plan Assess and Instruct Home Visit No Home Exercise Program Home Exercise Program No Mobility Mobility No Interventions Intervention Associated Problem/Goal Status Variance Visit Notes Instruct Medication Management Problem:Assess and Instruct Home Visit Goal:Medications Completed Home Visit Med Education: Medication list reconciled. Medication profile and in-home medication list updated with appropriate changes. Discrepanices noted during home visit: none Instructed patient on dosing, purpose, and side effects. Medication education completed today on all medication(s). Patient/caregiver is able to teach back 80% of instruction. Falls Problem:Assess and Instruct Home Visit Goal:Home Care Plan Completed Clinician taught: patient clinician instructed: proper footwear, improved lighting and assistive device usage Patient/caregiver was able to demonstrate 80% via teachback Safety Problem:Assess and Instruct Home Visit Goal:Home Care Plan Completed Assessed patient vulnerability and home safety risks: yes Equipment reviewed yes Patient at risk for harm or abuse no Family members involved in safety plan for Level 2 or 3 yes Plan for Next Visit Problem:Assess and Instruct Home Visit Goal:Home Care Plan Completed Follow up education for next visit: safety precautions Skilled intervention at next visit: plan to continue to progress HEP as able to increase activity tolerance. Home Exercise Program Problem:Home Exercise Program Goal:Home Exercise Program Completed Patient reports: back pain with standing therex, 8/10, limits therex tolerance. Clinician taught: patient Clinician instructed on: d/t patient back pain, POWER PRESS SUPERVISOR provides skilled instruct for patient to complete seated HEP instead of standing HEP to reduce pain, completed to increase activity tolerance for safe return to PLOF. Patient/caregiver is able to teach back 80% of instruction. Instruct Mobility Problem:Mobility Goal:Mobility Completed Patient reports: no falls Clinician taught: patient Clinician instructed on: POWER PRESS SUPERVISOR provides skilled instruct for patient to complete gait training with FWW and POWER PRESS SUPERVISOR S during for safety, to increase activity tolerance, patient SPO2 levels 84% on 2L O2, cues for proper breathing techniques during seated rest break with SPO2 levels rising to 95%. Patient/caregiver is able to teach back 80% of instruction. [facility] Visit Details Visit Type -SN HH Routine Vi sit Discipline -Snf Problems Problem Start Date Status Goals Interventions Assess and Instruct Home Visit Disciplines: Snf 05/01/2022 Active 1 goal linked to scheduled/documented intervention 4 goal interventions scheduled/documented in this visit Medication Management Disciplines: Snf 05/01/2022 Active 1 goal linked to scheduled/documented intervention 1 goal intervention scheduled/documented in this visit Pain Management Disciplines: Snf 05/01/2022 Active 1 goal linked to scheduled/documented intervention 1 goal intervention scheduled/documented in this visit Cardiac Disciplines: Snf 05/01/2022 Active 2 goals linked to scheduled/documented interventions 2 goal interventions scheduled/documented in this visit Gastrointestinal Disciplines: Snf 05/01/2022 Active 1 goal linked to scheduled/documented intervention 1 goal intervention scheduled/documented in this visit Respiratory Disciplines: Snf 05/01/2022 Active 1 goal linked to scheduled/documented intervention 1 goal intervention scheduled/documented in this visit Wound Care and/or Skin Problems Disciplines: Snf 05/12/2022 Active 1 goal linked to scheduled/documented intervention 1 goal intervention scheduled/documented in this visit Goals Goal Associated Problem Outcome Goal Met? Visit Notes Home Care Plan Assess and Instruct Home Visit No Medications Medication Management No Pain Pain Management No Heart Failure Cardiac No Cardiac Function Cardiac No Gastrointestinal Gastrointestinal No Oxygen Therapy Respiratory No Wound/Incision Wound Care and/or Skin Problems No Interventions Intervention Associated Problem/Goal Status Variance Visit Notes Falls Problem:Assess and Instruct Home Visit Goal:Home Care Plan Completed Clinician taught: patient and caregiver 4-10 Patient IS at risk for falls (a score of 6 or greater is a predictor of future falls) and clinician instructed: assistive device usage, keep frequently used items in reach and emergency response system and/or keep phone on you Patient/caregiver was able to demonstrate 100% via teachback Safety Problem:Assess and Instruct Home Visit Goal:Home Care Plan Completed Assessed patient vulnerability and home safety risks: none Equipment reviewed walker, O2 Patient at risk for harm or abuse no Family members involved in safety plan for Level 2 or 3 n/a Discharge Planning Problem:Assess and Instruct Home Visit Goal:Home Care Plan Completed Discharge from home care after there is no further skilled need. Plan for Next Visit Problem:Assess and Instruct Home Visit Goal:Home Care Plan Completed CP assess, VS, monitor dressing/wound care, medication education Instruct Medication Management Problem:Medication Management Goal:Medications Completed Home Visit Med Education: Medication list reconciled. Medication profile and in-home medication list updated with appropriate changes. Discrepanices noted during home visit: none Instructed patient on dosing, purpose, and side effects. Medication education completed today on aspirin medication(s). Patient/caregiver is able to teach back 100% of instruction. Assess Pain Characteristics and Current Pain Regimen and Instruct Methods of Pain Relief Problem:Pain Management Goal:Pain Completed Instruct Heart Failure Problem:Cardiac Goal:Heart Failure Completed Recognizing and managing signs and symptoms of heart failure reviewed with pt/spouse. Instruct Impaired Cardiac Function Problem:Cardiac Goal:Cardiac Function Completed Pt's BP has been controlled. Instruct Alteration in GI Function Problem:Gastrointest inal Goal:Gastrointestina l Completed Pt denies GI issues at this time. Instruct Oxygen Usage Problem:Respiratory Goal:Oxygen Therapy Completed Pt instructed on management/precaution s of oxygen therapy and care of equipment, and on proper storage of oxygen. Wound/Incision Problem:Wound Care and/or Skin Problems Goal:Wound/Incision Completed Site cleansed with soap and water, patted dry, skin barrier paste applied. 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 PRESS SUPERVISOR Routine Visi t Discipline -Physical Therapy Problems Problem Start Date Status Goals Interventions Assess and Instruct Home Visit Disciplines: Physical Therapy 05/08/2022 Active 2 goals linked to scheduled/documented interventions 4 goal interventions scheduled/documented in this visit Home Exercise Program Disciplines: Physical Therapy 05/08/2022 Active 1 goal linked to scheduled/documented intervention 1 goal intervention scheduled/documented in this visit Mobility Disciplines: Physical Therapy 05/08/2022 Active 1 goal linked to scheduled/documented intervention 1 goal intervention scheduled/documented in this visit Goals Goal Associated Problem Outcome Goal Met? Visit Notes Medications Assess and Instruct Home Visit No Home Care Plan Assess and Instruct Home Visit No Home Exercise Program Home Exercise Program No Mobility Mobility No Interventions Intervention Associated Problem/Goal Status Variance Visit Notes Instruct Medication Management Problem:Assess and Instruct Home Visit Goal:Medications Completed Home Visit Med Education: Medication list reconciled. Medication profile and in-home medication list updated with appropriate changes. Discrepanices noted during home visit: none Instructed patient on dosing, purpose, and side effects. Medication education completed today on all medication(s). Patient/caregiver is able to teach back 80% of instruction. Falls Problem:Assess and Instruct Home Visit Goal:Home Care Plan Completed Clinician taught: patient clinician instructed: proper footwear, improved lighting and assistive device usage Patient/caregiver was able to demonstrate 80% via teachback Safety Problem:Assess and Instruct Home Visit Goal:Home Care Plan Completed Assessed patient vulnerability and home safety risks: yes Equipment reviewed yes Patient at risk for harm or abuse no Family members involved in safety plan for Level 2 or 3 yes Plan for Next Visit Problem:Assess and Instruct Home Visit Goal:Home Care Plan Completed Follow up education for next visit: safety precautions Skilled intervention at next visit: plan to continue to progress HEP as able to increase activity tolerance. Home Exercise Program Problem:Home Exercise Program Goal:Home Exercise Program Completed Patient reports: back pain with standing therex, 8/10, limits therex tolerance. Clinician taught: patient Clinician instructed on: d/t patient back pain, POWER PRESS SUPERVISOR provides skilled instruct for patient to complete seated HEP instead of standing HEP to reduce pain, completed to increase activity tolerance for safe return to PLOF. Patient/caregiver is able to teach back 80% of instruction. Instruct Mobility Problem:Mobility Goal:Mobility Completed Patient reports: no falls Clinician taught: patient Clinician instructed on: POWER PRESS SUPERVISOR provides skilled instruct for patient to complete gait training with FWW and POWER PRESS SUPERVISOR S during for safety, to increase activity tolerance, patient SPO2 levels 84% on 2L O2, cues for proper breathing techniques during seated rest break with SPO2 levels rising to 95%. Patient/caregiver is able to teach back 80% of instruction. [facility] Visit Details Visit Type -SN HH Routine Vi sit Discipline -Snf Problems Problem Start Date Status Goals Interventions Assess and Instruct Home Visit Disciplines: Snf 05/01/2022 Active 1 goal linked to scheduled/documented intervention 4 goal interventions scheduled/documented in this visit Medication Management Disciplines: Snf 05/01/2022 Active 1 goal linked to scheduled/documented intervention 1 goal intervention scheduled/documented in this visit Pain Management Disciplines: Snf 05/01/2022 Active 1 goal linked to scheduled/documented intervention 1 goal intervention scheduled/documented in this visit Cardiac Disciplines: Snf 05/01/2022 Active 2 goals linked to scheduled/documented interventions 2 goal interventions scheduled/documented in this visit Gastrointestinal Disciplines: Snf 05/01/2022 Active 1 goal linked to scheduled/documented intervention 1 goal intervention scheduled/documented in this visit Respiratory Disciplines: Snf 05/01/2022 Active 1 goal linked to scheduled/documented intervention 1 goal intervention scheduled/documented in this visit Wound Care and/or Skin Problems Disciplines: Snf 05/12/2022 Active 1 goal linked to scheduled/documented intervention 1 goal intervention scheduled/documented in this visit Goals Goal Associated Problem Outcome Goal Met? Visit Notes Home Care Plan Assess and Instruct Home Visit No Medications Medication Management No Pain Pain Management No Heart Failure Cardiac No Cardiac Function Cardiac No Gastrointestinal Gastrointestinal No Oxygen Therapy Respiratory No Wound/Incision Wound Care and/or Skin Problems No Interventions Intervention Associated Problem/Goal Status Variance Visit Notes Falls Problem:Assess and Instruct Home Visit Goal:Home Care Plan Completed Clinician taught: patient and caregiver 4-10 Patient IS at risk for falls (a score of 6 or greater is a predictor of future falls) and clinician instructed: assistive device usage, keep frequently used items in reach and emergency response system and/or keep phone on you Patient/caregiver was able to demonstrate 100% via teachback Safety Problem:Assess and Instruct Home Visit Goal:Home Care Plan Completed Assessed patient vulnerability and home safety risks: none Equipment reviewed walker Patient at risk for harm or abuse no Family members involved in safety plan for Level 2 or 3 n/a Discharge Planning Problem:Assess and Instruct Home Visit Goal:Home Care Plan Completed Discharge from home care after there is no further skilled need. Plan for Next Visit Problem:Assess and Instruct Home Visit Goal:Home Care Plan Completed CP assess, VS, monitor dressing/wound care, medication education Instruct Medication Management Problem:Medication Management Goal:Medications Completed Home Visit Med Education: Medication list reconciled. Medication profile and in-home medication list updated with appropriate changes. Discrepanices noted during home visit: none Instructed patient on dosing, purpose, and side effects. Medication education completed today on allopurinal medication(s). Patient/caregiver is able to teach back 100% of instruction. Assess Pain Characteristics and Current Pain Regimen and Instruct Methods of Pain Relief Problem:Pain Management Goal:Pain Completed Instruct Heart Failure Problem:Cardiac Goal:Heart Failure Completed Recognizing and managing signs and symptoms of heart failure with pt/spouse. Instruct Impaired Cardiac Function Problem:Cardiac Goal:Cardiac Function Completed Pt/spouse Iistructed on recognizing and managing signs and symptoms of cardiac arrhythmia and hypertension. Instruct Alteration in GI Function Problem:Gastrointest inal Goal:Gastrointestina l Completed Pt denies any GI issues at this time. Instruct Oxygen Usage Problem:Respiratory Goal:Oxygen Therapy Completed Pt/spouse reviewed on management/precaution s of oxygen therapy and care of equipment, and on proper storage of oxygen. Wound/Incision Problem:Wound Care and/or Skin Problems Goal:Wound/Incision Completed Area is still open. Cleansed with soap and water, skin barrier paste applied. 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 PRESS SUPERVISOR Routine Visi t Discipline -Physical Therapy Problems Problem Start Date Status Goals Interventions Assess and Instruct Home Visit Disciplines: Physical Therapy 05/08/2022 Active 2 goals linked to scheduled/documented interventions 4 goal interventions scheduled/documented in this visit Home Exercise Program Disciplines: Physical Therapy 05/08/2022 Active 1 goal linked to scheduled/documented intervention 1 goal intervention scheduled/documented in this visit Disease-Specific Rehabilitation Disciplines: Physical Therapy 05/08/2022 Active 1 goal linked to scheduled/documented intervention 1 goal intervention scheduled/documented in this visit Mobility Disciplines: Physical Therapy 05/08/2022 Active 1 goal linked to scheduled/documented intervention 1 goal intervention scheduled/documented in this visit Goals Goal Associated Problem Outcome Goal Met? Visit Notes Medications Assess and Instruct Home Visit No Home Care Plan Assess and Instruct Home Visit No Home Exercise Program Home Exercise Program No Pulmonary Disease-Specific Rehabilitation No Mobility Mobility No Interventions Intervention Associated Problem/Goal Status Variance Visit Notes Instruct Medication Management Problem:Assess and Instruct Home Visit Goal:Medications Completed Home Visit Med Education: Medication list reconciled. Medication profile and in-home medication list updated with appropriate changes. Discrepanices noted during home visit: none Instructed patient on dosing, purpose, and side effects. Medication education completed today on no change in medication(s). Patient/caregiver is able to teach back 100% of instruction. Falls Problem:Assess and Instruct Home Visit Goal:Home Care Plan Completed Clinician taught: patient 4-10 Patient IS at risk for falls (a score of 6 or greater is a predictor of future falls) and clinician instructed: proper footwear, improved lighting, remove clutter and throw rugs, safe cord/tubing management (O2, IV, Electrical, [place]), non-slip mats in tubs/showers, handrails/grab bar placement, assistive device usage, keep frequently used items in reach and emergency response system and/or keep phone on you and Patient/caregiver was able to demonstrate 100% via teachback Safety Problem:Assess and Instruct Home Visit Goal:Home Care Plan Completed Assessed patient vulnerability and home safety risks: yes Equipment reviewed yes Patient at risk for harm or abuse no Family members involved in safety plan for Level 2 or 3 Plan for Next Visit Problem:Assess and Instruct Home Visit Goal:Home Care Plan Completed Follow up education for next visit: hep Skilled intervention at next visit: cont to improve mobility Home Exercise Program Problem:Home Exercise Program Goal:Home Exercise Program Completed Patient reports: non compliance with all heps Clinician taught: patient and caregiver Clinician instructed on: reviewed programs in place with good understanding and provided skilled pt education on completing these daily Patient/caregiver is able to teach back 100% of instruction. Pulmonary Problem:Disease-Specif ic Rehabilitation Goal:Pulmonary Completed Patient reports: fair to poor compliance with pulmonary hep Clinician taught: patient Clinician instructed on: Patient/caregiver is able to teach back 100 of instruction. Instruct Mobility Problem:Mobility Goal:Mobility Completed Patient reports: recent fall Clinician taught: patient Clinician instructed on: Skilled observation of transfers today along with instruction and education for safe hand/foot placement during sit<>stand transfers provided pt education on lying in bed once daily for 1 hour to build wanda so pt can transition to bed for pressure/posture relief. Pt spends majority of time in left chair. pt reports sustaining a fall on mon-this was previously reported by nurse. Pt reports feeling weak from this and dialysis therapist provided verbal education on safe posture for amb with FWW, including the need for a wider JOSE and increased upright trunk to decrease risk for falls. Patient able to amb 50 ft x 1 with FWW with CGA pt continues to fatigue quickly requiring frequent restbreaks and required verbal cues for proper diaphragmatic breathing strategies to increase lung capacity Patient/caregiver is able to teach back 100% of instruction. [facility] Visit Details Visit Type -POWER PRESS SUPERVISOR Routine Visi t Discipline -Physical Therapy Problems Problem Start Date Status Goals Interventions Assess and Instruct Home Visit Disciplines: Physical Therapy 05/08/2022 Active 2 goals linked to scheduled/documented interventions 4 goal interventions scheduled/documented in this visit Home Exercise Program Disciplines: Physical Therapy 05/08/2022 Active 1 goal linked to scheduled/documented intervention 1 goal intervention scheduled/documented in this visit Disease-Specific Rehabilitation Disciplines: Physical Therapy 05/08/2022 Active 1 goal linked to scheduled/documented intervention 1 goal intervention scheduled/documented in this visit Mobility Disciplines: Physical Therapy 05/08/2022 Active 1 goal linked to scheduled/documented intervention 1 goal intervention scheduled/documented in this visit Goals Goal Associated Problem Outcome Goal Met? Visit Notes Medications Assess and Instruct Home Visit No Home Care Plan Assess and Instruct Home Visit No Home Exercise Program Home Exercise Program No Pulmonary Disease-Specific Rehabilitation No Mobility Mobility No Interventions Intervention Associated Problem/Goal Status Variance Visit Notes Instruct Medication Management Problem:Assess and Instruct Home Visit Goal:Medications Completed Home Visit Med Education: Medication list reconciled. Medication profile and in-home medication list updated with appropriate changes. Discrepanices noted during home visit: none Instructed patient on dosing, purpose, and side effects. Medication education completed today on no change in medication(s). Patient/caregiver is able to teach back 100% of instruction. Falls Problem:Assess and Instruct Home Visit Goal:Home Care Plan Completed Clinician taught: patient 4-10 Patient IS at risk for falls (a score of 6 or greater is a predictor of future falls) and clinician instructed: proper footwear, improved lighting, remove clutter and throw rugs, safe cord/tubing management (O2, IV, Electrical, Manriquez), non-slip mats in tubs/showers, handrails/grab bar placement, assistive device usage, keep frequently used items in reach and emergency response system and/or keep phone on you and Patient/caregiver was able to demonstrate 100% via teachback Safety Problem:Assess and Instruct Home Visit Goal:Home Care Plan Completed Assessed patient vulnerability and home safety risks: yes Equipment reviewed yes Patient at risk for harm or abuse no Family members involved in safety plan for Level 2 or 3 Plan for Next Visit Problem:Assess and Instruct Home Visit Goal:Home Care Plan Completed Follow up education for next visit: hep Skilled intervention at next visit: cont to improve mobility Home Exercise Program Problem:Home Exercise Program Goal:Home Exercise Program Completed Patient reports: non compliance with all heps Clinician taught: patient and caregiver Clinician instructed on: reviewed programs in place with good understanding and provided skilled pt education on completing these daily Patient/caregiver is able to teach back 100% of instruction. Pulmonary Problem:Disease-Specif ic Rehabilitation Goal:Pulmonary Completed Patient reports: fair to poor compliance with pulmonary hep Clinician taught: patient Clinician instructed on: Patient/caregiver is able to teach back 100 of instruction. Instruct Mobility Problem:Mobility Goal:Mobility Completed Patient reports: recent fall Clinician taught: patient Clinician instructed on: Skilled observation of transfers today along with instruction and education for safe hand/foot placement during sit<>stand transfers provided pt education on lying in bed once daily for 1 hour to build wanda so pt can transition to bed for pressure/posture relief. Pt spends majority of time in left chair. pt reports sustaining a fall on mon-this was previously reported by nurse. Pt reports feeling weak from this and dialysis therapist provided verbal education on safe posture for amb with FWW, including the need for a wider JOSE and increased upright trunk to decrease risk for falls. Patient able to amb 50 ft x 1 with FWW with CGA pt continues to fatigue quickly requiring frequent restbreaks and required verbal cues for proper diaphragmatic breathing strategies to increase lung capacity Patient/caregiver is able to teach back 100% of instruction. 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 PRESS SUPERVISOR Routine Visi t Discipline -Physical Therapy Problems Problem Start Date Status Goals Interventions Assess and Instruct Home Visit Disciplines: Physical Therapy 05/08/2022 Active 3 goals linked to scheduled/documented interventions 5 goal interventions scheduled/documented in this visit Home Exercise Program Disciplines: Physical Therapy 05/08/2022 Active 1 goal linked to scheduled/documented intervention 1 goal intervention scheduled/documented in this visit Disease-Specific Rehabilitation Disciplines: Physical Therapy 05/08/2022 Active 1 goal linked to scheduled/documented intervention 1 goal intervention scheduled/documented in this visit Mobility Disciplines: Physical Therapy 05/08/2022 Active 1 goal linked to scheduled/documented intervention 1 goal intervention scheduled/documented in this visit Goals Goal Associated Problem Outcome Goal Met? Visit Notes Pain Assess and Instruct Home Visit No Medications Assess and Instruct Home Visit No Home Care Plan Assess and Instruct Home Visit No Home Exercise Program Home Exercise Program No Pulmonary Disease-Specific Rehabilitation No Mobility Mobility No Interventions Intervention Associated Problem/Goal Status Variance Visit Notes Pain Management Problem:Assess and Instruct Home Visit Goal:Pain Completed Patient reports: LBP Clinician taught: patient Clinician instructed on: pain modulation Patient/caregiver is able to teach back 100% of instruction. Instruct Medication Management Problem:Assess and Instruct Home Visit Goal:Medications Completed Home Visit Med Education: Medication list reconciled. Medication profile and in-home medication list updated with appropriate changes. Discrepanices noted during home visit: none Instructed patient on dosing, purpose, and side effects. Medication education completed today on no change in medication(s). Patient/caregiver is able to teach back 100% of instruction. Falls Problem:Assess and Instruct Home Visit Goal:Home Care Plan Completed Clinician taught: patient 4-10 Patient IS at risk for falls (a score of 6 or greater is a predictor of future falls) and clinician instructed: proper footwear, improved lighting, remove clutter and throw rugs, safe cord/tubing management (O2, IV, Electrical, Manriquez), non-slip mats in tubs/showers, handrails/grab bar placement, assistive device usage, keep frequently used items in reach and emergency response system and/or keep phone on you and Patient/caregiver was able to demonstrate 100% via teachback Safety Problem:Assess and Instruct Home Visit Goal:Home Care Plan Completed Assessed patient vulnerability and home safety risks: yes Equipment reviewed yes Patient at risk for harm or abuse no Family members involved in safety plan for Level 2 or 3 Plan for Next Visit Problem:Assess and Instruct Home Visit Goal:Home Care Plan Completed Follow up education for next visit: PT D/C Skilled intervention at next visit: PT D/C Home Exercise Program Problem:Home Exercise Program Goal:Home Exercise Program Completed Patient reports: non compliance Clinician taught: patient Clinician instructed on: reviewed programs in place with good understanding and provided skilled pt education on completing these daily Patient/caregiver is able to teach back 100% of instruction. Pulmonary Problem:Disease-Specif ic Rehabilitation Goal:Pulmonary Completed Patient reports: fatigue Clinician taught: patient Clinician instructed on: provided self monitoring techniquess for SOB, fatigue level, and safe activity progression however pt reports non compliance with this Patient/caregiver is able to teach back 100% of instruction. Instruct Mobility Problem:Mobility Goal:Mobility Completed Patient reports: non compliance with hep and amb programmer developer taught: patient Clinician instructed on: Skilled observation of transfers today along with instruction and education for safe hand/foot placement during sit<>stand transfers therapist provided verbal education on safe posture for amb with FWW, including the need for a wider JOSE and increased upright trunk to decrease risk for falls. Patient able to amb 50 ft x 1 with FWW with CGA Patient/caregiver is able to teach back 100% of instruction. [facility] Visit Details Visit Type -PT Non-OASIS/Dis cipl Discharge Discipline -Physical Therapy Problems Problem Start Date Status Goals Interventions Assess and Instruct Home Visit Disciplines: Physical Therapy 05/08/2022 Resolved on 06/23/2022 2 goals linked to scheduled/documented interventions 4 goal interventions scheduled/documented in this visit Goals Goal Associated Problem Outcome Goal Met? Visit Notes Medications Assess and Instruct Home Visit No Home Care Plan Assess and Instruct Home Visit No Interventions Intervention Associated Problem/Goal Status Variance Visit Notes Instruct Medication Management Problem:Assess and Instruct Home Visit Goal:Medications Scheduled Falls Problem:Assess and Instruct Home Visit Goal:Home Care Plan Scheduled Safety Problem:Assess and Instruct Home Visit Goal:Home Care Plan Scheduled Plan for Next Visit Problem:Assess and Instruct Home Visit Goal:Home Care Plan Scheduled documented in this [facility]* Visit Details Visit Type -SN HH Routine Vi sit Discipline -Snf Problems Problem Start Date Status Goals Interventions Assess and Instruct Home Visit Disciplines: Snf 05/01/2022 Active 1 goal linked to scheduled/documented intervention 4 goal interventions scheduled/documented in this visit Medication Management Disciplines: Snf 05/01/2022 Active 1 goal linked to scheduled/documented intervention 1 goal intervention scheduled/documented in this visit Pain Management Disciplines: Snf 05/01/2022 Active 1 goal linked to scheduled/documented intervention 1 goal intervention scheduled/documented in this visit Cardiac Disciplines: Snf 05/01/2022 Active 2 goals linked to scheduled/documented interventions 2 goal interventions scheduled/documented in this visit Gastrointestinal Disciplines: Snf 05/01/2022 Active 1 goal linked to scheduled/documented intervention 1 goal intervention scheduled/documented in this visit Respiratory Disciplines: Snf 05/01/2022 Active 1 goal linked to scheduled/documented intervention 1 goal intervention scheduled/documented in this visit Wound Care and/or Skin Problems Disciplines: Snf 05/12/2022 Active 1 goal linked to scheduled/documented intervention 1 goal intervention scheduled/documented in this visit Goals Goal Associated Problem Outcome Goal Met? Visit Notes Home Care Plan Assess and Instruct Home Visit No Medications Medication Management No Pain Pain Management No Heart Failure Cardiac No Cardiac Function Cardiac No Gastrointestinal Gastrointestinal No Oxygen Therapy Respiratory No Wound/Incision Wound Care and/or Skin Problems No Interventions Intervention Associated Problem/Goal Status Variance Visit Notes Falls Problem:Assess and Instruct Home Visit Goal:Home Care Plan Completed Clinician taught: patient and caregiver 4-10 Patient IS at risk for falls (a score of 6 or greater is a predictor of future falls) and clinician instructed: assistive device usage, keep frequently used items in reach and emergency response system and/or keep phone on you Patient/caregiver was able to demonstrate 100% via teachback Safety Problem:Assess and Instruct Home Visit Goal:Home Care Plan Completed Assessed patient vulnerability and home safety risks: none Equipment reviewed walker Patient at risk for harm or abuse no Family members involved in safety plan for Level 2 or 3 n/a Discharge Planning Problem:Assess and Instruct Home Visit Goal:Home Care Plan Completed D/t pt's coxxyc wound not improving, the plan is to recertify the pt next week Pt's PCP notified. Plan for Next Visit Problem:Assess and Instruct Home Visit Goal:Home Care Plan Completed CP assess, VS, monitor dressing/wound care, medication education Instruct Medication Management Problem:Medication Management Goal:Medications Completed Home Visit Med Education: Medication list reconciled. Medication profile and in-home medication list updated with appropriate changes. Discrepanices noted during home visit: none Instructed patient on dosing, purpose, and side effects. Medication education completed today on allopurinol medication(s). Patient/caregiver is able to teach back 100% of instruction. Assess Pain Characteristics and Current Pain Regimen and Instruct Methods of Pain Relief Problem:Pain Management Goal:Pain Completed Instruct Heart Failure Problem:Cardiac Goal:Heart Failure Completed Instruct on recognizing and managing signs and symptoms of heart failure reviewed with pt/spouse. Instruct Impaired Cardiac Function Problem:Cardiac Goal:Cardiac Function Completed Pt/spouse instructed on recognizing and managing signs and symptoms of cardiac arrhythmia and hypertension. Instruct Alteration in GI Function Problem:Gastrointest inal Goal:Gastrointestina l Completed Pt denies any GI issues/concerns at this time. Instruct Oxygen Usage Problem:Respiratory Goal:Oxygen Therapy Completed Pt/spouse instructed on management/precaution s of oxygen therapy and care of equipment, and on proper storage of oxygen. Wound/Incision Problem:Wound Care and/or Skin Problems Goal:Wound/Incision Completed Coccyx has been cleaned with soap and water. Thin layer of barrier cream applied. Changing positions every 1 to 2 hours reinforced with pt. Pt states he understands. 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 PRESS SUPERVISOR Routine Visi t Discipline -Physical Therapy Problems Problem Start Date Status Goals Interventions Assess and Instruct Home Visit Disciplines: Physical Therapy 05/08/2022 Active 3 goals linked to scheduled/documented interventions 5 goal interventions scheduled/documented in this visit Home Exercise Program Disciplines: Physical Therapy 05/08/2022 Active 1 goal linked to scheduled/documented intervention 1 goal intervention scheduled/documented in this visit Disease-Specific Rehabilitation Disciplines: Physical Therapy 05/08/2022 Active 1 goal linked to scheduled/documented intervention 1 goal intervention scheduled/documented in this visit Mobility Disciplines: Physical Therapy 05/08/2022 Active 1 goal linked to scheduled/documented intervention 1 goal intervention scheduled/documented in this visit Goals Goal Associated Problem Outcome Goal Met? Visit Notes Pain Assess and Instruct Home Visit No Medications Assess and Instruct Home Visit No Home Care Plan Assess and Instruct Home Visit No Home Exercise Program Home Exercise Program No Pulmonary Disease-Specific Rehabilitation No Mobility Mobility No Interventions Intervention Associated Problem/Goal Status Variance Visit Notes Pain Management Problem:Assess and Instruct Home Visit Goal:Pain Completed Patient reports: LBP Clinician taught: patient Clinician instructed on: pain modulation Patient/caregiver is able to teach back 100% of instruction. Instruct Medication Management Problem:Assess and Instruct Home Visit Goal:Medications Completed Home Visit Med Education: Medication list reconciled. Medication profile and in-home medication list updated with appropriate changes. Discrepanices noted during home visit: none Instructed patient on dosing, purpose, and side effects. Medication education completed today on no change in medication(s). Patient/caregiver is able to teach back 100% of instruction. Falls Problem:Assess and Instruct Home Visit Goal:Home Care Plan Completed Clinician taught: patient 4-10 Patient IS at risk for falls (a score of 6 or greater is a predictor of future falls) and clinician instructed: proper footwear, improved lighting, remove clutter and throw rugs, safe cord/tubing management (O2, IV, Electrical, Manriquez), non-slip mats in tubs/showers, handrails/grab bar placement, assistive device usage, keep frequently used items in reach and emergency response system and/or keep phone on you and Patient/caregiver was able to demonstrate 100% via teachback Safety Problem:Assess and Instruct Home Visit Goal:Home Care Plan Completed Assessed patient vulnerability and home safety risks: yes Equipment reviewed yes Patient at risk for harm or abuse no Family members involved in safety plan for Level 2 or 3 Plan for Next Visit Problem:Assess and Instruct Home Visit Goal:Home Care Plan Completed Follow up education for next visit: PT D/C Skilled intervention at next visit: PT D/C Home Exercise Program Problem:Home Exercise Program Goal:Home Exercise Program Completed Patient reports: non compliance Clinician taught: patient Clinician instructed on: reviewed programs in place with good understanding and provided skilled pt education on completing these daily Patient/caregiver is able to teach back 100% of instruction. Pulmonary Problem:Disease-Specif ic Rehabilitation Goal:Pulmonary Completed Patient reports: fatigue Clinician taught: patient Clinician instructed on: provided self monitoring techniquess for SOB, fatigue level, and safe activity progression however pt reports non compliance with this Patient/caregiver is able to teach back 100% of instruction. Instruct Mobility Problem:Mobility Goal:Mobility Completed Patient reports: non compliance with hep and amb programmer developer taught: patient Clinician instructed on: Skilled observation of transfers today along with instruction and education for safe hand/foot placement during sit<>stand transfers therapist provided verbal education on safe posture for amb with FWW, including the need for a wider JOSE and increased upright trunk to decrease risk for falls. Patient able to amb 50 ft x 1 with FWW with CGA Patient/caregiver is able to teach back 100% of instruction. documented in this [facility]* Visit Details Visit Type -SN HH OASIS Rece rt Discipline -Snf Problems Problem Start Date Status Goals Interventions Assess and Instruct Home Visit Disciplines: Snf 05/01/2022 Active 1 goal linked to scheduled/documented intervention 4 goal interventions scheduled/documented in this visit Medication Management Disciplines: Snf 05/01/2022 Active 1 goal linked to scheduled/documented intervention 1 goal intervention scheduled/documented in this visit Pain Management Disciplines: Snf 05/01/2022 Active 1 goal linked to scheduled/documented intervention 1 goal intervention scheduled/documented in this visit Respiratory Disciplines: Snf 05/01/2022 Active 1 goal linked to scheduled/documented intervention 1 goal intervention scheduled/documented in this visit Wound Care and/or Skin Problems Disciplines: Snf 05/12/2022 Active 1 goal linked to scheduled/documented intervention 1 goal intervention scheduled/documented in this visit Goals Goal Associated Problem Outcome Goal Met? Visit Notes Home Care Plan Assess and Instruct Home Visit No Medications Medication Management No Pain Pain Management No Oxygen Therapy Respiratory No Wound/Incision Wound Care and/or Skin Problems No Interventions Intervention Associated Problem/Goal Status Variance Visit Notes Falls Problem:Assess and Instruct Home Visit Goal:Home Care Plan Completed Clinician taught: patient and caregiver 4-10 Patient IS at risk for falls (a score of 6 or greater is a predictor of future falls) and clinician instructed: assistive device usage, keep frequently used items in reach and emergency response system and/or keep phone on you Patient/caregiver was able to demonstrate 100% via teachback Safety Problem:Assess and Instruct Home Visit Goal:Home Care Plan Completed Assessed patient vulnerability and home safety risks: none Equipment reviewed rollator Patient at risk for harm or abuse no Family members involved in safety plan for Level 2 or 3 n/a Discharge Planning Problem:Assess and Instruct Home Visit Goal:Home Care Plan Completed Discharge when pt's wound is fully healed. Plan for Next Visit Problem:Assess and Instruct Home Visit Goal:Home Care Plan Completed CP assess, VS, monitor dressing/wound care, medication education Instruct Medication Management Problem:Medication Management Goal:Medications Completed Home Visit Med Education: Medication list reconciled. Medication profile and in-home medication list updated with appropriate changes. Discrepanices noted during home visit: none Instructed patient on dosing, purpose, and side effects. Medication education completed today on aspirin medication(s). Patient/caregiver is able to teach back 100% of instruction. Assess Pain Characteristics and Current Pain Regimen and Instruct Methods of Pain Relief Problem:Pain Management Goal:Pain Completed Instruct Oxygen Usage Problem:Respiratory Goal:Oxygen Therapy Completed Pt continues to wear 2L O2 continuously via NC. Wound/Incision Problem:Wound Care and/or Skin Problems Goal:Wound/Incision Completed Pt's wound is improving. Pt's spouse continues to keep the wound clean and apply barrier cream as needed. Pressure relief education reinforced. [facility] Visit Details Visit Type -SN HH OASIS Rece rt Discipline -Snf Problems Problem Start Date Status Goals Interventions Assess and Instruct Home Visit Disciplines: Snf 05/01/2022 Active 1 goal linked to scheduled/documented intervention 4 goal interventions scheduled/documented in this visit Medication Management Disciplines: Snf 05/01/2022 Active 1 goal linked to scheduled/documented intervention 1 goal intervention scheduled/documented in this visit Pain Management Disciplines: Snf 05/01/2022 Active 1 goal linked to scheduled/documented intervention 1 goal intervention scheduled/documented in this visit Respiratory Disciplines: Snf 05/01/2022 Active 1 goal linked to scheduled/documented intervention 1 goal intervention scheduled/documented in this visit Wound Care and/or Skin Problems Disciplines: Snf 05/12/2022 Active 1 goal linked to scheduled/documented intervention 1 goal intervention scheduled/documented in this visit Goals Goal Associated Problem Outcome Goal Met? Visit Notes Home Care Plan Assess and Instruct Home Visit No Medications Medication Management No Pain Pain Management No Oxygen Therapy Respiratory No Wound/Incision Wound Care and/or Skin Problems No Interventions Intervention Associated Problem/Goal Status Variance Visit Notes Falls Problem:Assess and Instruct Home Visit Goal:Home Care Plan Completed Clinician taught: patient and caregiver 4-10 Patient IS at risk for falls (a score of 6 or greater is a predictor of future falls) and clinician instructed: assistive device usage, keep frequently used items in reach and emergency response system and/or keep phone on you Patient/caregiver was able to demonstrate 100% via teachback Safety Problem:Assess and Instruct Home Visit Goal:Home Care Plan Completed Assessed patient vulnerability and home safety risks: none Equipment reviewed rollator Patient at risk for harm or abuse no Family members involved in safety plan for Level 2 or 3 n/a Discharge Planning Problem:Assess and Instruct Home Visit Goal:Home Care Plan Completed Discharge when pt's wound is fully healed. Plan for Next Visit Problem:Assess and Instruct Home Visit Goal:Home Care Plan Completed CP assess, VS, monitor dressing/wound care, medication education Instruct Medication Management Problem:Medication Management Goal:Medications Completed Home Visit Med Education: Medication list reconciled. Medication profile and in-home medication list updated with appropriate changes. Discrepanices noted during home visit: none Instructed patient on dosing, purpose, and side effects. Medication education completed today on aspirin medication(s). Patient/caregiver is able to teach back 100% of instruction. Assess Pain Characteristics and Current Pain Regimen and Instruct Methods of Pain Relief Problem:Pain Management Goal:Pain Completed Instruct Oxygen Usage Problem:Respiratory Goal:Oxygen Therapy Completed Pt continues to wear 2L O2 continuously via NC. Wound/Incision Problem:Wound Care and/or Skin Problems Goal:Wound/Incision Completed Pt's wound is improving. Pt's spouse continues to keep the wound clean and apply barrier cream as needed. Pressure relief education reinforced. [facility] Visit Details Visit Type -SN HH Routine Vi sit Discipline -Snf Problems Problem Start Date Status Goals Interventions Assess and Instruct Home Visit Disciplines: Snf 05/01/2022 Active 1 goal linked to scheduled/documented intervention 4 goal interventions scheduled/documented in this visit Medication Management Disciplines: Snf 05/01/2022 Active 1 goal linked to scheduled/documented intervention 1 goal intervention scheduled/documented in this visit Pain Management Disciplines: Snf 05/01/2022 Active 1 goal linked to scheduled/documented intervention 1 goal intervention scheduled/documented in this visit Respiratory Disciplines: Snf 05/01/2022 Active 1 goal linked to scheduled/documented intervention 1 goal intervention scheduled/documented in this visit Wound Care and/or Skin Problems Disciplines: Snf 05/12/2022 Active 1 goal linked to scheduled/documented intervention 1 goal intervention scheduled/documented in this visit Goals Goal Associated Problem Outcome Goal Met? Visit Notes Home Care Plan Assess and Instruct Home Visit No Medications Medication Management No Pain Pain Management No Oxygen Therapy Respiratory No Wound/Incision Wound Care and/or Skin Problems No Interventions Intervention Associated Problem/Goal Status Variance Visit Notes Falls Problem:Assess and Instruct Home Visit Goal:Home Care Plan Completed Clinician taught: patient and caregiver 4-10 Patient IS at risk for falls (a score of 6 or greater is a predictor of future falls) and clinician instructed: assistive device usage, keep frequently used items in reach and emergency response system and/or keep phone on you Patient/caregiver was able to demonstrate 100% via teachback Safety Problem:Assess and Instruct Home Visit Goal:Home Care Plan Completed Assessed patient vulnerability and home safety risks: none Equipment reviewed walker, O2 Patient at risk for harm or abuse no Family members involved in safety plan for Level 2 or 3 n/a Discharge Planning Problem:Assess and Instruct Home Visit Goal:Home Care Plan Completed Discharge from home care after there is no further skilled need, coccyx wound is healed. Plan for Next Visit Problem:Assess and Instruct Home Visit Goal:Home Care Plan Completed CP assess, VS, monitor dressing/wound care, medication education Instruct Medication Management Problem:Medication Management Goal:Medications Completed Home Visit Med Education: Medication list reconciled. Medication profile and in-home medication list updated with appropriate changes. Discrepanices noted during home visit: none Instructed patient on dosing, purpose, and side effects. Medication education completed today on zoloft medication(s). Patient/caregiver is able to teach back 100% of instruction. Assess Pain Characteristics and Current Pain Regimen and Instruct Methods of Pain Relief Problem:Pain Management Goal:Pain Completed Instruct Oxygen Usage Problem:Respiratory Goal:Oxygen Therapy Completed Management/precaution s of oxygen therapy and care of equipment, and on proper storage of oxygen. Wound/Incision Problem:Wound Care and/or Skin Problems Goal:Wound/Incision Completed Coccyx wound cleansed with soap and water, rinsed pat dry, thin layer of barrier cream applied. Pt tolerated well. [facility] Visit Details Visit Type -SN HH Routine Vi sit Discipline -Snf Problems Problem Start Date Status Goals Interventions Assess and Instruct Home Visit Disciplines: Snf 05/01/2022 Active 1 goal linked to scheduled/documented intervention 4 goal interventions scheduled/documented in this visit Medication Management Disciplines: Snf 05/01/2022 Active 1 goal linked to scheduled/documented intervention 1 goal intervention scheduled/documented in this visit Pain Management Disciplines: Snf 05/01/2022 Active 1 goal linked to scheduled/documented intervention 1 goal intervention scheduled/documented in this visit Respiratory Disciplines: Snf 05/01/2022 Active 1 goal linked to scheduled/documented intervention 1 goal intervention scheduled/documented in this visit Wound Care and/or Skin Problems Disciplines: Snf 05/12/2022 Active 1 goal linked to scheduled/documented intervention 1 goal intervention scheduled/documented in this visit Goals Goal Associated Problem Outcome Goal Met? Visit Notes Home Care Plan Assess and Instruct Home Visit No Medications Medication Management No Pain Pain Management No Oxygen Therapy Respiratory No Wound/Incision Wound Care and/or Skin Problems No Interventions Intervention Associated Problem/Goal Status Variance Visit Notes Falls Problem:Assess and Instruct Home Visit Goal:Home Care Plan Completed Clinician taught: patient and caregiver 4-10 Patient IS at risk for falls (a score of 6 or greater is a predictor of future falls) and clinician instructed: assistive device usage, keep frequently used items in reach and emergency response system and/or keep phone on you Patient/caregiver was able to demonstrate 100% via teachback Safety Problem:Assess and Instruct Home Visit Goal:Home Care Plan Completed Assessed patient vulnerability and home safety risks: none Equipment reviewed rollator Patient at risk for harm or abuse no Family members involved in safety plan for Level 2 or 3 n/a Discharge Planning Problem:Assess and Instruct Home Visit Goal:Home Care Plan Completed Discharge from home care after there is no further skilled need. Plan for Next Visit Problem:Assess and Instruct Home Visit Goal:Home Care Plan Completed CP assess, VS, monitor dressing/wound care, medication education Instruct Medication Management Problem:Medication Management Goal:Medications Completed Home Visit Med Education: Medication list reconciled. Medication profile and in-home medication list updated with appropriate changes. Discrepanices noted during home visit: none Instructed patient on dosing, purpose, and side effects. Medication education completed today on zoloft medication(s). Patient/caregiver is able to teach back 100% of instruction. Assess Pain Characteristics and Current Pain Regimen and Instruct Methods of Pain Relief Problem:Pain Management Goal:Pain Completed Instruct Oxygen Usage Problem:Respiratory Goal:Oxygen Therapy Completed Management/precaution s of oxygen therapy and care of equipment, and on proper storage of oxygen reviewed with pt/spouse. Wound/Incision Problem:Wound Care and/or Skin Problems Goal:Wound/Incision Completed pt just had a shower this morning. Coccyx wound clean, dry, and ARY. Thin layer of barrier cream applied after picture and measurements taken. Pt tolerated well. [facility] Visit Details Visit Type -[employer] HH Missed Vi sit Discipline -Snf Problems Problem Start Date Status Goals Interventions Assess and Instruct Home Visit Disciplines: Snf 05/01/2022 Active 1 goal linked to scheduled/documented intervention 4 goal interventions scheduled/documented in this visit Medication Management Disciplines: Snf 05/01/2022 Active 1 goal linked to scheduled/documented intervention 1 goal intervention scheduled/documented in this visit Pain Management Disciplines: Snf 05/01/2022 Active 1 goal linked to scheduled/documented intervention 1 goal intervention scheduled/documented in this visit Goals Goal Associated Problem Outcome Goal Met? Visit Notes Home Care Plan Assess and Instruct Home Visit No Medications Medication Management No Pain Pain Management No Interventions Intervention Associated Problem/Goal Status Variance Visit Notes Falls Problem:Assess and Instruct Home Visit Goal:Home Care Plan Scheduled Safety Problem:Assess and Instruct Home Visit Goal:Home Care Plan Scheduled Discharge Planning Problem:Assess and Instruct Home Visit Goal:Home Care Plan Scheduled Plan for Next Visit Problem:Assess and Instruct Home Visit Goal:Home Care Plan Scheduled Instruct Medication Management Problem:Medication Management Goal:Medications Scheduled Assess Pain Characteristics and Current Pain Regimen and Instruct Methods of Pain Relief Problem:Pain Management Goal:Pain Scheduled [facility] Visit Details Visit Type -SN HH OASIS Rece rt Discipline -Snf Problems Problem Start Date Status Goals Interventions Assess and Instruct Home Visit Disciplines: Snf 05/01/2022 Active 1 goal linked to scheduled/documented intervention 4 goal interventions scheduled/documented in this visit Medication Management Disciplines: Snf 05/01/2022 Active 1 goal linked to scheduled/documented intervention 1 goal intervention scheduled/documented in this visit Pain Management Disciplines: Snf 05/01/2022 Active 1 goal linked to scheduled/documented intervention 1 goal intervention scheduled/documented in this visit Respiratory Disciplines: Snf 05/01/2022 Active 1 goal linked to scheduled/documented intervention 1 goal intervention scheduled/documented in this visit Wound Care and/or Skin Problems Disciplines: Snf 05/12/2022 Active 1 goal linked to scheduled/documented intervention 1 goal intervention scheduled/documented in this visit Goals Goal Associated Problem Outcome Goal Met? Visit Notes Home Care Plan Assess and Instruct Home Visit No Medications Medication Management No Pain Pain Management No Oxygen Therapy Respiratory No Wound/Incision Wound Care and/or Skin Problems No Interventions Intervention Associated Problem/Goal Status Variance Visit Notes Falls Problem:Assess and Instruct Home Visit Goal:Home Care Plan Completed Clinician taught: patient and caregiver 4-10 Patient IS at risk for falls (a score of 6 or greater is a predictor of future falls) and clinician instructed: assistive device usage, keep frequently used items in reach and emergency response system and/or keep phone on you Patient/caregiver was able to demonstrate 100% via teachback Safety Problem:Assess and Instruct Home Visit Goal:Home Care Plan Completed Assessed patient vulnerability and home safety risks: pt has a hx of falls Equipment reviewed rollator Patient at risk for harm or abuse no Family members involved in safety plan for Level 2 or 3 n/a Discharge Planning Problem:Assess and Instruct Home Visit Goal:Home Care Plan Completed Discharge from home care after there is no further skilled need, wound is healed. Plan for Next Visit Problem:Assess and Instruct Home Visit Goal:Home Care Plan Completed CP assess, VS, monitor dressing/wound care, medication education Instruct Medication Management Problem:Medication Management Goal:Medications Completed Home Visit Med Education: Medication list reconciled. Medication profile and in-home medication list updated with appropriate changes. Discrepanices noted during home visit: none Instructed patient on dosing, purpose, and side effects. Medication education completed today on crestor medication(s). Patient/caregiver is able to teach back 100% of instruction. Assess Pain Characteristics and Current Pain Regimen and Instruct Methods of Pain Relief Problem:Pain Management Goal:Pain Completed Instruct Oxygen Usage Problem:Respiratory Goal:Oxygen Therapy Completed Patient reports: compliance with O2 use Clinician taught: patient and caregiver Clinician instructed on: management/precaution s of oxygen therapy and care of equipment, and on proper storage of oxygen. Patient/caregiver is able to teach back 100% of instruction. Wound/Incision Problem:Wound Care and/or Skin Problems Goal:Wound/Incision Completed Wound is progressing. Educated patient and caregiver/spouse on hand hygiene and infection control techniques, cleansing wound, signs/symptoms of infection and when to call or report concerns to home health or provider. patient and caregiver able to verbalize teach back of hand hygiene, signs/symptoms of infection and when to call or report concerns to home health or provider. patient and caregiver able to return demonstration of hand hygiene and infection control techniques and cleansing wound. patient and caregiver continuing to require wound education on hand hygiene and infection control techniques and cleansing wound. [facility] Visit Details Visit Type -SN HH Routine Vi sit Discipline -Snf Problems Problem Start Date Status Goals Interventions Assess and Instruct Home Visit Disciplines: Snf 05/01/2022 Active 1 goal linked to scheduled/documented intervention 4 goal interventions scheduled/documented in this visit Medication Management Disciplines: Snf 05/01/2022 Active 1 goal linked to scheduled/documented intervention 1 goal intervention scheduled/documented in this visit Pain Management Disciplines: Snf 05/01/2022 Active 1 goal linked to scheduled/documented intervention 1 goal intervention scheduled/documented in this visit Respiratory Disciplines: Snf 05/01/2022 Active 1 goal linked to scheduled/documented intervention 1 goal intervention scheduled/documented in this visit Wound Care and/or Skin Problems Disciplines: Snf 05/12/2022 Active - 1 problem intervention scheduled/documented in this visit Goals Goal Associated Problem Outcome Goal Met? Visit Notes Home Care Plan Assess and Instruct Home Visit No Medications Medication Management No Pain Pain Management No Oxygen Therapy Respiratory No Interventions Intervention Associated Problem/Goal Status Variance Visit Notes Falls Problem:Assess and Instruct Home Visit Goal:Home Care Plan Completed Clinician taught: patient and caregiver 4-10 Patient IS at risk for falls (a score of 6 or greater is a predictor of future falls) and clinician instructed: assistive device usage, keep frequently used items in reach and emergency response system and/or keep phone on you Patient/caregiver was able to demonstrate 100% via teachback Safety Problem:Assess and Instruct Home Visit Goal:Home Care Plan Completed Assessed patient vulnerability and home safety risks: pt has had multiple falls Equipment reviewed rollator Patient at risk for harm or abuse no Family members involved in safety plan for Level 2 or 3 spouse Discharge Planning Problem:Assess and Instruct Home Visit Goal:Home Care Plan Completed Discharge from home care after there is no further skilled need, wound is healed. Plan for Next Visit Problem:Assess and Instruct Home Visit Goal:Home Care Plan Completed CP assess, VS, monitor dressing/wound care, medication education Instruct Medication Management Problem:Medication Management Goal:Medications Completed Home Visit Med Education: Medication list reconciled. Medication profile and in-home medication list updated with appropriate changes. Discrepanices noted during home visit: none Instructed patient on dosing, purpose, and side effects. Medication education completed today on tramadol medication(s). Patient/caregiver is able to teach back 100% of instruction. Assess Pain Characteristics and Current Pain Regimen and Instruct Methods of Pain Relief Problem:Pain Management Goal:Pain Completed Instruct Oxygen Usage Problem:Respiratory Goal:Oxygen Therapy Completed Patient reports: understanding Clinician taught: patient and caregiver Clinician instructed on: management/precaution s of oxygen therapy and care of equipment, and proper storage of oxygen. Patient/caregiver is able to teach back 100% of instruction. Wound/Incision Problem:Wound Care and/or Skin Problems Completed Wound is stable. Educated patient and caregiver on hand hygiene and infection control techniques, dressing removal, cleansing wound, applying dressing, signs/symptoms of infection and when to call or report concerns to home health or provider. patient and caregiver able to verbalize teach back of hand hygiene, signs/symptoms of infection and when to call or report concerns to home health or provider. patient and caregiver able to return demonstration of hand hygiene and infection control techniques, dressing removal, cleansing wound and applying dressing. patient and caregiver continuing to require wound education on hand hygiene and infection control techniques, dressing removal, cleansing wound, applying dressing, signs/symptoms of infection and when to call or report concerns to home health or provider. [facility] Visit Details Visit Type -SN HH OASIS Rece rt Discipline -Snf Problems Problem Start Date Status Goals Interventions Assess and Instruct Home Visit Disciplines: Snf 05/01/2022 Active 1 goal linked to scheduled/documented intervention 4 goal interventions scheduled/documented in this visit Medication Management Disciplines: Snf 05/01/2022 Active 1 goal linked to scheduled/documented intervention 1 goal intervention scheduled/documented in this visit Pain Management Disciplines: Snf 05/01/2022 Active 1 goal linked to scheduled/documented intervention 1 goal intervention scheduled/documented in this visit Respiratory Disciplines: Snf 05/01/2022 Active 1 goal linked to scheduled/documented intervention 1 goal intervention scheduled/documented in this visit Wound Care and/or Skin Problems Disciplines: Snf 05/12/2022 Active 1 goal linked to scheduled/documented intervention 1 goal intervention scheduled/documented in this visit Goals Goal Associated Problem Outcome Goal Met? Visit Notes Home Care Plan Assess and Instruct Home Visit No Medications Medication Management No Pain Pain Management No Oxygen Therapy Respiratory No Wound/Incision Wound Care and/or Skin Problems No Interventions Intervention Associated Problem/Goal Status Variance Visit Notes Falls Problem:Assess and Instruct Home Visit Goal:Home Care Plan Completed Clinician taught: patient and caregiver 4-10 Patient IS at risk for falls (a score of 6 or greater is a predictor of future falls) and clinician instructed: assistive device usage, keep frequently used items in reach and emergency response system and/or keep phone on you Patient/caregiver was able to demonstrate 100% via teachback Safety Problem:Assess and Instruct Home Visit Goal:Home Care Plan Completed Assessed patient vulnerability and home safety risks: pt has a hx of falls Equipment reviewed rollator Patient at risk for harm or abuse no Family members involved in safety plan for Level 2 or 3 n/a Discharge Planning Problem:Assess and Instruct Home Visit Goal:Home Care Plan Completed Discharge from home care after there is no further skilled need, wound is healed. Plan for Next Visit Problem:Assess and Instruct Home Visit Goal:Home Care Plan Completed CP assess, VS, monitor dressing/wound care, medication education Instruct Medication Management Problem:Medication Management Goal:Medications Completed Home Visit Med Education: Medication list reconciled. Medication profile and in-home medication list updated with appropriate changes. Discrepanices noted during home visit: none Instructed patient on dosing, purpose, and side effects. Medication education completed today on crestor medication(s). Patient/caregiver is able to teach back 100% of instruction. Assess Pain Characteristics and Current Pain Regimen and Instruct Methods of Pain Relief Problem:Pain Management Goal:Pain Completed Instruct Oxygen Usage Problem:Respiratory Goal:Oxygen Therapy Completed Patient reports: compliance with O2 use Clinician taught: patient and caregiver Clinician instructed on: management/precaution s of oxygen therapy and care of equipment, and on proper storage of oxygen. Patient/caregiver is able to teach back 100% of instruction. Wound/Incision Problem:Wound Care and/or Skin Problems Goal:Wound/Incision Completed Wound is progressing. Educated patient and caregiver/spouse on hand hygiene and infection control techniques, cleansing wound, signs/symptoms of infection and when to call or report concerns to home health or provider. patient and caregiver able to verbalize teach back of hand hygiene, signs/symptoms of infection and when to call or report concerns to home health or provider. patient and caregiver able to return demonstration of hand hygiene and infection control techniques and cleansing wound. patient and caregiver continuing to require wound education on hand hygiene and infection control techniques and cleansing wound. [facility] Visit Details Visit Type -SN HH Routine Vi sit Discipline -Snf Problems Problem Start Date Status Goals Interventions Assess and Instruct Home Visit Disciplines: Snf 05/01/2022 Active 1 goal linked to scheduled/documented intervention 4 goal interventions scheduled/documented in this visit Medication Management Disciplines: Snf 05/01/2022 Active 1 goal linked to scheduled/documented intervention 1 goal intervention scheduled/documented in this visit Pain Management Disciplines: Snf 05/01/2022 Active 1 goal linked to scheduled/documented intervention 1 goal intervention scheduled/documented in this visit Respiratory Disciplines: Snf 05/01/2022 Active 1 goal linked to scheduled/documented intervention 1 goal intervention scheduled/documented in this visit Wound Care and/or Skin Problems Disciplines: Snf 05/12/2022 Active - 1 problem intervention scheduled/documented in this visit Goals Goal Associated Problem Outcome Goal Met? Visit Notes Home Care Plan Assess and Instruct Home Visit No Medications Medication Management No Pain Pain Management No Oxygen Therapy Respiratory No Interventions Intervention Associated Problem/Goal Status Variance Visit Notes Falls Problem:Assess and Instruct Home Visit Goal:Home Care Plan Completed Clinician taught: patient and caregiver 4-10 Patient IS at risk for falls (a score of 6 or greater is a predictor of future falls) and clinician instructed: assistive device usage, keep frequently used items in reach and emergency response system and/or keep phone on you Patient/caregiver was able to demonstrate 100% via teachback Safety Problem:Assess and Instruct Home Visit Goal:Home Care Plan Completed Assessed patient vulnerability and home safety risks: none Equipment reviewed rollator Patient at risk for harm or abuse no Family members involved in safety plan for Level 2 or 3 spouse Discharge Planning Problem:Assess and Instruct Home Visit Goal:Home Care Plan Completed Dischare from home care after there is no further skilled need, wound is healed. Plan for Next Visit Problem:Assess and Instruct Home Visit Goal:Home Care Plan Completed CP assess, VS, monitor dressing/wound care, medication education Instruct Medication Management Problem:Medication Management Goal:Medications Completed Home Visit Med Education: Medication list reconciled. Medication profile and in-home medication list updated with appropriate changes. Discrepanices noted during home visit: none Instructed patient on dosing, purpose, and side effects. Medication education completed today on midorine medication(s). Patient/caregiver is able to teach back 100% of instruction. Assess Pain Characteristics and Current Pain Regimen and Instruct Methods of Pain Relief Problem:Pain Management Goal:Pain Completed Instruct Oxygen Usage Problem:Respiratory Goal:Oxygen Therapy Completed Patient reports: understanding Clinician taught: patient and caregiver Clinician instructed on: management/precaution s of oxygen therapy and care of equipment, and proper storage of oxygen. Patient/caregiver is able to teach back 100% of instruction. Wound/Incision Problem:Wound Care and/or Skin Problems Completed Wound is progressing. Educated patient and caregive on hand hygiene and infection control techniques, dressing removal, cleansing wound, applying dressing, signs/symptoms of infection and when to call or report concerns to home health or provider. patient and caregiver able to verbalize teach back of hand hygiene, signs/symptoms of infection and when to call or report concerns to home health or provider. patient and caregiver able to return demonstration of hand hygiene and infection control techniques, dressing removal, cleansing wound and applying dressing. patient and caregiver continuing to require wound education on hand hygiene and infection control techniques, dressing removal, cleansing wound, applying dressing, signs/symptoms of infection and when to call or report concerns to home health or provider. [facility] Visit Details Visit Type -SN HH Routine Vi sit Discipline -Snf Problems Problem Start Date Status Goals Interventions Assess and Instruct Home Visit Disciplines: Snf 05/01/2022 Active 1 goal linked to scheduled/documented intervention 4 goal interventions scheduled/documented in this visit Medication Management Disciplines: Snf 05/01/2022 Active 1 goal linked to scheduled/documented intervention 1 goal intervention scheduled/documented in this visit Pain Management Disciplines: Snf 05/01/2022 Active 1 goal linked to scheduled/documented intervention 1 goal intervention scheduled/documented in this visit Respiratory Disciplines: Snf 05/01/2022 Active 1 goal linked to scheduled/documented intervention 1 goal intervention scheduled/documented in this visit Wound Care and/or Skin Problems Disciplines: Snf 05/12/2022 Active - 1 problem intervention scheduled/documented in this visit Goals Goal Associated Problem Outcome Goal Met? Visit Notes Home Care Plan Assess and Instruct Home Visit No Medications Medication Management No Pain Pain Management No Oxygen Therapy Respiratory No Interventions Intervention Associated Problem/Goal Status Variance Visit Notes Falls Problem:Assess and Instruct Home Visit Goal:Home Care Plan Completed Clinician taught: patient and caregiver 4-10 Patient IS at risk for falls (a score of 6 or greater is a predictor of future falls) and clinician instructed: assistive device usage, keep frequently used items in reach and emergency response system and/or keep phone on you Patient/caregiver was able to demonstrate 100% via teachback Safety Problem:Assess and Instruct Home Visit Goal:Home Care Plan Completed Assessed patient vulnerability and home safety risks: Pt has hx of frequent falls Equipment reviewed rollater Patient at risk for harm or abuse no Family members involved in safety plan for Level 2 or 3 Discharge Planning Problem:Assess and Instruct Home Visit Goal:Home Care Plan Completed Discharge from home care after there is no further skilled need, wound is healed. Plan for Next Visit Problem:Assess and Instruct Home Visit Goal:Home Care Plan Completed CP assess, VS, monitor dressing/wound care, medication education Instruct Medication Management Problem:Medication Management Goal:Medications Completed Home Visit Med Education: Medication list reconciled. Medication profile and in-home medication list updated with appropriate changes. Discrepanices noted during home visit: none Instructed patient on dosing, purpose, and side effects. Medication education completed today on levothyroxine medication(s). Patient/caregiver is able to teach back 100% of instruction. Assess Pain Characteristics and Current Pain Regimen and Instruct Methods of Pain Relief Problem:Pain Management Goal:Pain Completed Instruct Oxygen Usage Problem:Respiratory Goal:Oxygen Therapy Completed Patient reports: unfderstanding Clinician taught: patient and caregiver Clinician instructed on: management/precaution s of oxygen therapy and care of equipment, and on proper storage of oxygen. Patient/caregiver is able to teach back 100% of instruction. Wound/Incision Problem:Wound Care and/or Skin Problems Completed Wound is progressing. Educated patient and caregiver on hand hygiene and infection control techniques, dressing removal, cleansing wound, applying dressing, signs/symptoms of infection and when to call or report concerns to home health or provider. patient and caregiver able to verbalize teach back of hand hygiene, signs/symptoms of infection and when to call or report concerns to home health or provider. patient and caregiver able to return demonstration of hand hygiene and infection control techniques, dressing removal, cleansing wound and applying dressing. patient and caregiver independent with wound education. [facility] Visit Details Visit Type -SN HH Routine Vi sit Discipline -Snf Problems Problem Start Date Status Goals Interventions Assess and Instruct Home Visit Disciplines: Snf 05/01/2022 Active 1 goal linked to scheduled/documented intervention 4 goal interventions scheduled/documented in this visit Medication Management Disciplines: Snf 05/01/2022 Active 1 goal linked to scheduled/documented intervention 1 goal intervention scheduled/documented in this visit Pain Management Disciplines: Snf 05/01/2022 Active 1 goal linked to scheduled/documented intervention 1 goal intervention scheduled/documented in this visit Respiratory Disciplines: Snf 05/01/2022 Active 1 goal linked to scheduled/documented intervention 1 goal intervention scheduled/documented in this visit Wound Care and/or Skin Problems Disciplines: Snf 05/12/2022 Active - 1 problem intervention scheduled/documented in this visit Goals Goal Associated Problem Outcome Goal Met? Visit Notes Home Care Plan Assess and Instruct Home Visit No Medications Medication Management No Pain Pain Management No Oxygen Therapy Respiratory No Interventions Intervention Associated Problem/Goal Status Variance Visit Notes Falls Problem:Assess and Instruct Home Visit Goal:Home Care Plan Completed Clinician taught: patient and caregiver 4-10 Patient IS at risk for falls (a score of 6 or greater is a predictor of future falls) and clinician instructed: assistive device usage, keep frequently used items in reach and emergency response system and/or keep phone on you Patient/caregiver was able to demonstrate 100% via teachback Safety Problem:Assess and Instruct Home Visit Goal:Home Care Plan Completed Assessed patient vulnerability and home safety risks: pt has hx of frequent falls Equipment reviewed rollator Patient at risk for harm or abuse no Family members involved in safety plan for Level 2 or 3 spouse Discharge Planning Problem:Assess and Instruct Home Visit Goal:Home Care Plan Completed Discharge from home care after there is no further skilled need. Plan for Next Visit Problem:Assess and Instruct Home Visit Goal:Home Care Plan Completed CP assess, VS, monitor dressing/wound care, medication education Instruct Medication Management Problem:Medication Management Goal:Medications Completed Home Visit Med Education: Medication list reconciled. Medication profile and in-home medication list updated with appropriate changes. Discrepanices noted during home visit: none Instructed patient on dosing, purpose, and side effects. Medication education completed today on midodrine medication(s). Patient/caregiver is able to teach back 100% of instruction. Assess Pain Characteristics and Current Pain Regimen and Instruct Methods of Pain Relief Problem:Pain Management Goal:Pain Completed Instruct Oxygen Usage Problem:Respiratory Goal:Oxygen Therapy Completed Patient reports: understanding Clinician taught: patient and caregiver Clinician instructed on: management/precaution s of oxygen therapy and care of equipment, and on proper storage of oxygen. Patient/caregiver is able to teach back 100% of instruction. Wound/Incision Problem:Wound Care and/or Skin Problems Completed Wound is progressing. Educated patient and caregiver on hand hygiene and infection control techniques, dressing removal, cleansing wound, applying dressing, signs/symptoms of infection and when to call or report concerns to home health or provider. patient and caregiver able to verbalize teach back of hand hygiene, signs/symptoms of infection and when to call or report concerns to home health or provider. patient and caregiver able to return demonstration of hand hygiene and infection control techniques, dressing removal, cleansing wound and applying dressing. patient and caregiver independent with wound education. [facility] Visit Details Visit Type -SN HH Routine Vi sit Discipline -Snf Problems Problem Start Date Status Goals Interventions Assess and Instruct Home Visit Disciplines: Snf 05/01/2022 Active 1 goal linked to scheduled/documented intervention 4 goal interventions scheduled/documented in this visit Medication Management Disciplines: Snf 05/01/2022 Active 1 goal linked to scheduled/documented intervention 1 goal intervention scheduled/documented in this visit Pain Management Disciplines: Snf 05/01/2022 Active 1 goal linked to scheduled/documented intervention 1 goal intervention scheduled/documented in this visit Respiratory Disciplines: Snf 05/01/2022 Active 1 goal linked to scheduled/documented intervention 1 goal intervention scheduled/documented in this visit Wound Care and/or Skin Problems Disciplines: Snf 05/12/2022 Active - 1 problem intervention scheduled/documented in this visit Goals Goal Associated Problem Outcome Goal Met? Visit Notes Home Care Plan Assess and Instruct Home Visit No Medications Medication Management No Pain Pain Management No Oxygen Therapy Respiratory No Interventions Intervention Associated Problem/Goal Status Variance Visit Notes Falls Problem:Assess and Instruct Home Visit Goal:Home Care Plan Completed Clinician taught: patient and caregiver 4-10 Patient IS at risk for falls (a score of 6 or greater is a predictor of future falls) and clinician instructed: assistive device usage, keep frequently used items in reach and emergency response system and/or keep phone on you Patient/caregiver was able to demonstrate 100% via teachback Safety Problem:Assess and Instruct Home Visit Goal:Home Care Plan Completed Assessed patient vulnerability and home safety risks: pt has hx of frequent falls Equipment reviewed rollator, oxygen Patient at risk for harm or abuse no Family members involved in safety plan for Level 2 or 3 spouse Discharge Planning Problem:Assess and Instruct Home Visit Goal:Home Care Plan Completed Discharge from home care after there are no further skilled needs, wound healed. Plan for Next Visit Problem:Assess and Instruct Home Visit Goal:Home Care Plan Completed CP assess, VS, monitor dressing/wound care, medication education Instruct Medication Management Problem:Medication Management Goal:Medications Completed Home Visit Med Education: Medication list reconciled. Medication profile and in-home medication list updated with appropriate changes. Discrepanices noted during home visit: none Instructed patient on dosing, purpose, and side effects. Medication education completed today on oxygen medication(s). Patient/caregiver is able to teach back 100% of instruction. Assess Pain Characteristics and Current Pain Regimen and Instruct Methods of Pain Relief Problem:Pain Management Goal:Pain Completed Instruct Oxygen Usage Problem:Respiratory Goal:Oxygen Therapy Completed Patient reports: understanding Clinician taught: patient and caregiver Clinician instructed on: management/precaution s of oxygen therapy and care of equipment, and proper storage of oxygen. Patient/caregiver is able to teach back 100% of instruction. Wound/Incision Problem:Wound Care and/or Skin Problems Completed Wound is progressing. Educated patient and caregiver on hand hygiene and infection control techniques, dressing removal, cleansing wound, applying dressing, signs/symptoms of infection and when to call or report concerns to home health or provider. patient and caregiver able to verbalize teach back of hand hygiene, signs/symptoms of infection and when to call or report concerns to home health or provider. patient and caregiver able to return demonstration of hand hygiene and infection control techniques, dressing removal, cleansing wound and applying dressing. patient and caregiver independent with wound education. [facility] Visit Details Visit Type -SN HH Routine Vi sit Discipline -Snf Problems Problem Start Date Status Goals Interventions Assess and Instruct Home Visit Disciplines: Snf 05/01/2022 Active 1 goal linked to scheduled/documented intervention 4 goal interventions scheduled/documented in this visit Medication Management Disciplines: Snf 05/01/2022 Active 1 goal linked to scheduled/documented intervention 1 goal intervention scheduled/documented in this visit Pain Management Disciplines: Snf 05/01/2022 Active 1 goal linked to scheduled/documented intervention 1 goal intervention scheduled/documented in this visit Respiratory Disciplines: Snf 05/01/2022 Active 1 goal linked to scheduled/documented intervention 1 goal intervention scheduled/documented in this visit Wound Care and/or Skin Problems Disciplines: Snf 05/12/2022 Active - 1 problem intervention scheduled/documented in this visit Goals Goal Associated Problem Outcome Goal Met? Visit Notes Home Care Plan Assess and Instruct Home Visit No Medications Medication Management No Pain Pain Management No Oxygen Therapy Respiratory No Interventions Intervention Associated Problem/Goal Status Variance Visit Notes Falls Problem:Assess and Instruct Home Visit Goal:Home Care Plan Completed Clinician taught: patient and caregiver 4-10 Patient IS at risk for falls (a score of 6 or greater is a predictor of future falls) and clinician instructed: assistive device usage, keep frequently used items in reach and emergency response system and/or keep phone on you Patient/caregiver was able to demonstrate 100% via teachback Safety Problem:Assess and Instruct Home Visit Goal:Home Care Plan Completed Assessed patient vulnerability and home safety risks: none Equipment reviewed rollator Patient at risk for harm or abuse no Family members involved in safety plan for Level 2 or 3 spouse Discharge Planning Problem:Assess and Instruct Home Visit Goal:Home Care Plan Completed Discharge from home care after there is no skilled need, wound healed. Plan for Next Visit Problem:Assess and Instruct Home Visit Goal:Home Care Plan Completed CP assess, VS, monitor dressing/wound care, medication education Instruct Medication Management Problem:Medication Management Goal:Medications Completed Home Visit Med Education: Medication list reconciled. Medication profile and in-home medication list updated with appropriate changes. Discrepanices noted during home visit: none Instructed patient on dosing, purpose, and side effects. Medication education completed today on aspirin medication(s). Patient/caregiver is able to teach back 100% of instruction. Assess Pain Characteristics and Current Pain Regimen and Instruct Methods of Pain Relief Problem:Pain Management Goal:Pain Completed Instruct Oxygen Usage Problem:Respiratory Goal:Oxygen Therapy Completed Patient reports: understanding Clinician taught: patient and caregiver Clinician instructed on: management/precaution s of oxygen therapy and care of equipment, and on proper storage of oxygen. Patient/caregiver is able to teach back 100% of instruction. Wound/Incision Problem:Wound Care and/or Skin Problems Completed Wound is progressing. Educated patient and caregiver on hand hygiene and infection control techniques, dressing removal, cleansing wound, applying dressing, signs/symptoms of infection and when to call or report concerns to home health or provider. patient and caregiver able to verbalize teach back of hand hygiene, signs/symptoms of infection and when to call or report concerns to home health or provider. patient and caregiver able to return demonstration of hand hygiene and infection control techniques, dressing removal, cleansing wound and applying dressing. patient and caregiver independent with wound education. [facility] Visit Details Visit Type -SN HH Routine Vi sit Discipline -Snf Problems Problem Start Date Status Goals Interventions Assess and Instruct Home Visit Disciplines: Snf 05/01/2022 Active 1 goal linked to scheduled/documented intervention 4 goal interventions scheduled/documented in this visit Medication Management Disciplines: Snf 05/01/2022 Active 1 goal linked to scheduled/documented intervention 1 goal intervention scheduled/documented in this visit Pain Management Disciplines: Snf 05/01/2022 Active 1 goal linked to scheduled/documented intervention 1 goal intervention scheduled/documented in this visit Respiratory Disciplines: Snf 05/01/2022 Active 1 goal linked to scheduled/documented intervention 1 goal intervention scheduled/documented in this visit Wound Care and/or Skin Problems Disciplines: Snf 05/12/2022 Active - 1 problem intervention scheduled/documented in this visit Goals Goal Associated Problem Outcome Goal Met? Visit Notes Home Care Plan Assess and Instruct Home Visit No Medications Medication Management No Pain Pain Management No Oxygen Therapy Respiratory No Interventions Intervention Associated Problem/Goal Status Variance Visit Notes Falls Problem:Assess and Instruct Home Visit Goal:Home Care Plan Completed Clinician taught: patient and caregiver 4-10 Patient IS at risk for falls (a score of 6 or greater is a predictor of future falls) and clinician instructed: assistive device usage, keep frequently used items in reach and emergency response system and/or keep phone on you Patient/caregiver was able to demonstrate 100% via teachback Safety Problem:Assess and Instruct Home Visit Goal:Home Care Plan Completed Assessed patient vulnerability and home safety risks: pt has hx of falls Equipment reviewed rollator, oxygen equipment Patient at risk for harm or abuse no Family members involved in safety plan for Level 2 or 3 spouse Discharge Planning Problem:Assess and Instruct Home Visit Goal:Home Care Plan Completed Discharge from home care after there is no further skilled need. Plan for Next Visit Problem:Assess and Instruct Home Visit Goal:Home Care Plan Completed CP assess, VS, monitor dressing/wound care, medication education Instruct Medication Management Problem:Medication Management Goal:Medications Completed Home Visit Med Education: Medication list reconciled. Medication profile and in-home medication list updated with appropriate changes. Discrepanices noted during home visit: none Instructed patient on dosing, purpose, and side effects. Medication education completed today on oxygen medication(s). Patient/caregiver is able to teach back 100% of instruction. Assess Pain Characteristics and Current Pain Regimen and Instruct Methods of Pain Relief Problem:Pain Management Goal:Pain Completed Instruct Oxygen Usage Problem:Respiratory Goal:Oxygen Therapy Completed Patient reports: understanding Clinician taught: patient and caregiver Clinician instructed on: management/precaution s of oxygen therapy and care of equipment, and on proper storage of oxygen. Patient/caregiver is able to teach back 100% of instruction. Wound/Incision Problem:Wound Care and/or Skin Problems Completed Wound is progressing. Educated patient on hand hygiene and infection control techniques, dressing removal, cleansing wound, applying dressing, signs/symptoms of infection and when to call or report concerns to home health or provider. patient and caregiver able to verbalize teach back of hand hygiene, signs/symptoms of infection and when to call or report concerns to home health or provider. patient and caregiver able to return demonstration of hand hygiene and infection control techniques, dressing removal, cleansing wound and applying dressing. patient and caregiver independent with wound education. [facility] Visit Details Visit Type -SN HH OASIS Rece rt Discipline -Snf Problems Problem Start Date Status Goals Interventions Assess and Instruct Home Visit Disciplines: Snf 05/01/2022 Active 1 goal linked to scheduled/documented intervention 4 goal interventions scheduled/documented in this visit Medication Management Disciplines: Snf 05/01/2022 Active 1 goal linked to scheduled/documented intervention 1 goal intervention scheduled/documented in this visit Pain Management Disciplines: Snf 05/01/2022 Active 1 goal linked to scheduled/documented intervention 1 goal intervention scheduled/documented in this visit Respiratory Disciplines: Snf 05/01/2022 Active 1 goal linked to scheduled/documented intervention 1 goal intervention scheduled/documented in this visit Wound Care and/or Skin Problems Disciplines: Snf 05/12/2022 Active - 1 problem intervention scheduled/documented in this visit Goals Goal Associated Problem Outcome Goal Met? Visit Notes Home Care Plan Assess and Instruct Home Visit No Medications Medication Management No Pain Pain Management No Oxygen Therapy Respiratory No Interventions Intervention Associated Problem/Goal Status Variance Visit Notes Falls Problem:Assess and Instruct Home Visit Goal:Home Care Plan Completed Clinician taught: patient and caregiver 4-10 Patient IS at risk for falls (a score of 6 or greater is a predictor of future falls) and clinician instructed: assistive device usage, keep frequently used items in reach and emergency response system and/or keep phone on you Patient/caregiver was able to demonstrate 100% via teachback Safety Problem:Assess and Instruct Home Visit Goal:Home Care Plan Completed Assessed patient vulnerability and home safety risks: none Equipment reviewed rollator Patient at risk for harm or abuse no Family members involved in safety plan for Level 2 or 3 spouse Discharge Planning Problem:Assess and Instruct Home Visit Goal:Home Care Plan Completed Discharge from home care after there is no further skilled need, wound healed. Plan for Next Visit Problem:Assess and Instruct Home Visit Goal:Home Care Plan Completed CP assess, VS, monitor dressing/wound care, medication education Instruct Medication Management Problem:Medication Management Goal:Medications Completed Home Visit Med Education: Medication list reconciled. Medication profile and in-home medication list updated with appropriate changes. Discrepanices noted during home visit: none Instructed patient on dosing, purpose, and side effects. Medication education completed today on tylenol medication(s). Patient/caregiver is able to teach back 100% of instruction. Assess Pain Characteristics and Current Pain Regimen and Instruct Methods of Pain Relief Problem:Pain Management Goal:Pain Completed Instruct Oxygen Usage Problem:Respiratory Goal:Oxygen Therapy Completed Patient reports: understanding Clinician taught: patient and caregiver Clinician instructed on: management/precaution s of oxygen therapy and care of equipment, and on proper storage of oxygen. Patient/caregiver is able to teach back 100% of instruction. Wound/Incision Problem:Wound Care and/or Skin Problems Completed Wound is stable. Educated patient and caregiver on hand hygiene and infection control techniques, dressing removal, cleansing wound, applying dressing, signs/symptoms of infection and when to call or report concerns to home health or provider. patient and caregiver able to verbalize teach back of hand hygiene, signs/symptoms of infection and when to call or report concerns to home health or provider. patient and caregiver able to return demonstration of hand hygiene and infection control techniques, dressing removal, cleansing wound and applying dressing. patient and caregiver independent with wound education. [facility] Visit Details Visit Type -SN HH OASIS Rece rt Discipline -Snf Problems Problem Start Date Status Goals Interventions Assess and Instruct Home Visit Disciplines: Snf 05/01/2022 Active 1 goal linked to scheduled/documented intervention 4 goal interventions scheduled/documented in this visit Medication Management Disciplines: Snf 05/01/2022 Active 1 goal linked to scheduled/documented intervention 1 goal intervention scheduled/documented in this visit Pain Management Disciplines: Snf 05/01/2022 Active 1 goal linked to scheduled/documented intervention 1 goal intervention scheduled/documented in this visit Respiratory Disciplines: Snf 05/01/2022 Active 1 goal linked to scheduled/documented intervention 1 goal intervention scheduled/documented in this visit Wound Care and/or Skin Problems Disciplines: Snf 05/12/2022 Active - 1 problem intervention scheduled/documented in this visit Goals Goal Associated Problem Outcome Goal Met? Visit Notes Home Care Plan Assess and Instruct Home Visit No Medications Medication Management No Pain Pain Management No Oxygen Therapy Respiratory No Interventions Intervention Associated Problem/Goal Status Variance Visit Notes Falls Problem:Assess and Instruct Home Visit Goal:Home Care Plan Completed Clinician taught: patient and caregiver 4-10 Patient IS at risk for falls (a score of 6 or greater is a predictor of future falls) and clinician instructed: assistive device usage, keep frequently used items in reach and emergency response system and/or keep phone on you Patient/caregiver was able to demonstrate 100% via teachback Safety Problem:Assess and Instruct Home Visit Goal:Home Care Plan Completed Assessed patient vulnerability and home safety risks: none Equipment reviewed rollator Patient at risk for harm or abuse no Family members involved in safety plan for Level 2 or 3 spouse Discharge Planning Problem:Assess and Instruct Home Visit Goal:Home Care Plan Completed Discharge from home care after there is no further skilled need, wound healed. Plan for Next Visit Problem:Assess and Instruct Home Visit Goal:Home Care Plan Completed CP assess, VS, monitor dressing/wound care, medication education Instruct Medication Management Problem:Medication Management Goal:Medications Completed Home Visit Med Education: Medication list reconciled. Medication profile and in-home medication list updated with appropriate changes. Discrepanices noted during home visit: none Instructed patient on dosing, purpose, and side effects. Medication education completed today on tylenol medication(s). Patient/caregiver is able to teach back 100% of instruction. Assess Pain Characteristics and Current Pain Regimen and Instruct Methods of Pain Relief Problem:Pain Management Goal:Pain Completed Instruct Oxygen Usage Problem:Respiratory Goal:Oxygen Therapy Completed Patient reports: understanding Clinician taught: patient and caregiver Clinician instructed on: management/precaution s of oxygen therapy and care of equipment, and on proper storage of oxygen. Patient/caregiver is able to teach back 100% of instruction. Wound/Incision Problem:Wound Care and/or Skin Problems Completed Wound is stable. Educated patient and caregiver on hand hygiene and infection control techniques, dressing removal, cleansing wound, applying dressing, signs/symptoms of infection and when to call or report concerns to home health or provider. patient and caregiver able to verbalize teach back of hand hygiene, signs/symptoms of infection and when to call or report concerns to home health or provider. patient and caregiver able to return demonstration of hand hygiene and infection control techniques, dressing removal, cleansing wound and applying dressing. patient and caregiver independent with wound education. [facility] Visit Details Visit Type -SN HH OASIS Rece rt Discipline -Snf Problems Problem Start Date Status Goals Interventions Assess and Instruct Home Visit Disciplines: Snf 05/01/2022 Active 1 goal linked to scheduled/documented intervention 4 goal interventions scheduled/documented in this visit Medication Management Disciplines: Snf 05/01/2022 Active 1 goal linked to scheduled/documented intervention 1 goal intervention scheduled/documented in this visit Pain Management Disciplines: Snf 05/01/2022 Active 1 goal linked to scheduled/documented intervention 1 goal intervention scheduled/documented in this visit Respiratory Disciplines: Snf 05/01/2022 Active 1 goal linked to scheduled/documented intervention 1 goal intervention scheduled/documented in this visit Wound Care and/or Skin Problems Disciplines: Snf 05/12/2022 Active - 1 problem intervention scheduled/documented in this visit Goals Goal Associated Problem Outcome Goal Met? Visit Notes Home Care Plan Assess and Instruct Home Visit No Medications Medication Management No Pain Pain Management No Oxygen Therapy Respiratory No Interventions Intervention Associated Problem/Goal Status Variance Visit Notes Falls Problem:Assess and Instruct Home Visit Goal:Home Care Plan Completed Clinician taught: patient and caregiver 4-10 Patient IS at risk for falls (a score of 6 or greater is a predictor of future falls) and clinician instructed: assistive device usage, keep frequently used items in reach and emergency response system and/or keep phone on you Patient/caregiver was able to demonstrate 100% via teachback Safety Problem:Assess and Instruct Home Visit Goal:Home Care Plan Completed Assessed patient vulnerability and home safety risks: none Equipment reviewed rollator Patient at risk for harm or abuse no Family members involved in safety plan for Level 2 or 3 spouse Discharge Planning Problem:Assess and Instruct Home Visit Goal:Home Care Plan Completed Discharge from home care after there is no further skilled need, wound healed. Plan for Next Visit Problem:Assess and Instruct Home Visit Goal:Home Care Plan Completed CP assess, VS, monitor dressing/wound care, medication education Instruct Medication Management Problem:Medication Management Goal:Medications Completed Home Visit Med Education: Medication list reconciled. Medication profile and in-home medication list updated with appropriate changes. Discrepanices noted during home visit: none Instructed patient on dosing, purpose, and side effects. Medication education completed today on tylenol medication(s). Patient/caregiver is able to teach back 100% of instruction. Assess Pain Characteristics and Current Pain Regimen and Instruct Methods of Pain Relief Problem:Pain Management Goal:Pain Completed Instruct Oxygen Usage Problem:Respiratory Goal:Oxygen Therapy Completed Patient reports: understanding Clinician taught: patient and caregiver Clinician instructed on: management/precaution s of oxygen therapy and care of equipment, and on proper storage of oxygen. Patient/caregiver is able to teach back 100% of instruction. Wound/Incision Problem:Wound Care and/or Skin Problems Completed Wound is stable. Educated patient and caregiver on hand hygiene and infection control techniques, dressing removal, cleansing wound, applying dressing, signs/symptoms of infection and when to call or report concerns to home health or provider. patient and caregiver able to verbalize teach back of hand hygiene, signs/symptoms of infection and when to call or report concerns to home health or provider. patient and caregiver able to return demonstration of hand hygiene and infection control techniques, dressing removal, cleansing wound and applying dressing. patient and caregiver independent with wound education. [facility] Visit Details Visit Type -SN HH Routine Vi sit Discipline -Snf Problems Problem Start Date Status Goals Interventions Assess and Instruct Home Visit Disciplines: Snf 05/01/2022 Active 1 goal linked to scheduled/documented intervention 4 goal interventions scheduled/documented in this visit Medication Management Disciplines: Snf 05/01/2022 Active 1 goal linked to scheduled/documented intervention 1 goal intervention scheduled/documented in this visit Pain Management Disciplines: Snf 05/01/2022 Active 1 goal linked to scheduled/documented intervention 1 goal intervention scheduled/documented in this visit Respiratory Disciplines: Snf 05/01/2022 Active 1 goal linked to scheduled/documented intervention 1 goal intervention scheduled/documented in this visit Wound Care and/or Skin Problems Disciplines: Snf 05/12/2022 Active - 1 problem intervention scheduled/documented in this visit Goals Goal Associated Problem Outcome Goal Met? Visit Notes Home Care Plan Assess and Instruct Home Visit No Medications Medication Management No Pain Pain Management No Oxygen Therapy Respiratory No Interventions Intervention Associated Problem/Goal Status Variance Visit Notes Falls Problem:Assess and Instruct Home Visit Goal:Home Care Plan Completed Clinician taught: patient and caregiver 4-10 Patient IS at risk for falls (a score of 6 or greater is a predictor of future falls) and clinician instructed: assistive device usage, keep frequently used items in reach and emergency response system and/or keep phone on you Patient/caregiver was able to demonstrate 100% via teachback Safety Problem:Assess and Instruct Home Visit Goal:Home Care Plan Completed Assessed patient vulnerability and home safety risks: none Equipment reviewed rollator, oxygen Patient at risk for harm or abuse no Family members involved in safety plan for Level 2 or 3 n/a Discharge Planning Problem:Assess and Instruct Home Visit Goal:Home Care Plan Completed Discharge from home care after there is no further skilled need. Plan for Next Visit Problem:Assess and Instruct Home Visit Goal:Home Care Plan Completed CP assess, VS, monitor dressing/wound care, medication education Instruct Medication Management Problem:Medication Management Goal:Medications Completed Home Visit Med Education: Medication list reconciled. Medication profile and in-home medication list updated with appropriate changes. Discrepanices noted during home visit: none Instructed patient on dosing, purpose, and side effects. Medication education completed today on oxygen medication(s). Patient/caregiver is able to teach back 100% of instruction. Assess Pain Characteristics and Current Pain Regimen and Instruct Methods of Pain Relief Problem:Pain Management Goal:Pain Completed Instruct Oxygen Usage Problem:Respiratory Goal:Oxygen Therapy Completed Patient reports: understanding Clinician taught: patient and caregiver Clinician instructed on: management/precaution s of oxygen therapy and care of equipment, and on proper storage of oxygen. Patient/caregiver is able to teach back 100% of instruction. Wound/Incision Problem:Wound Care and/or Skin Problems Completed Wound is stable. Educated patient and caregiver on hand hygiene and infection control techniques, dressing removal, cleansing wound, applying dressing, signs/symptoms of infection and when to call or report concerns to home health or provider. patient and caregiver able to verbalize teach back of hand hygiene, signs/symptoms of infection and when to call or report concerns to home health or provider. patient and caregiver able to return demonstration of hand hygiene and infection control techniques, dressing removal, cleansing wound and applying dressing. patient and caregiver independent with wound education. [facility] Visit Details Visit Type -[employer] Routine Discipline -Snf Problems Problem Start Date Status Goals Interventions Assess and Instruct Home Visit Disciplines: Snf 05/01/2022 Active 1 goal linked to scheduled/documented intervention 4 goal interventions scheduled/documented in this visit Medication Management Disciplines: Snf 05/01/2022 Active 1 goal linked to scheduled/documented intervention 1 goal intervention scheduled/documented in this visit Pain Management Disciplines: Snf 05/01/2022 Active 1 goal linked to scheduled/documented intervention 1 goal intervention scheduled/documented in this visit Wound Care and/or Skin Problems Disciplines: Snf 05/12/2022 Active - 1 problem intervention scheduled/documented in this visit Goals Goal Associated Problem Outcome Goal Met? Visit Notes Home Care Plan Assess and Instruct Home Visit No Medications Medication Management No Pain Pain Management No Interventions Intervention Associated Problem/Goal Status Variance Visit Notes Falls Problem:Assess and Instruct Home Visit Goal:Home Care Plan Completed Clinician taught: patient 4-10 Patient IS at risk for falls (a score of 6 or greater is a predictor of future falls) and clinician instructed: proper footwear, improved lighting, remove clutter and throw rugs, safe cord/tubing management (O2, IV, Electrical, Manriquez), non-slip mats in tubs/showers, handrails/grab bar placement, assistive device usage, keep frequently used items in reach and emergency response system and/or keep phone on you Patient/caregiver was able to demonstrate % via teachback Safety Problem:Assess and Instruct Home Visit Goal:Home Care Plan Completed Assessed patient vulnerability and home safety risks: none Equipment reviewed walker Patient at risk for harm or abuse no Family members involved in safety plan for Level 2 or 3 Discharge Planning Problem:Assess and Instruct Home Visit Goal:Home Care Plan Completed Home Visit DC Planning: Spoke with patient about DC planning. Assessed for unsteady gait/poor balance and dyspnea at rest or with exertion DC will occur when: goals met Anticipate DC: On time Patient and/or caregiver response to discharge planning education: Plan for Next Visit Problem:Assess and Instruct Home Visit Goal:Home Care Plan Completed Follow up education for next visit: 11/24/22 Skilled intervention at next visit: CP assessment Instruct Medication Management Problem:Medication Management Goal:Medications Completed Home Visit Med Education: Medication list reconciled. Medication profile and in-home medication list updated with appropriate changes. Discrepanices noted during home visit: none Instructed patient on dosing, purpose, and side effects. Medication education completed today on medication(s). Patient/caregiver is able to teach back % of instruction. Assess Pain Characteristics and Current Pain Regimen and Instruct Methods of Pain Relief Problem:Pain Management Goal:Pain Completed Wound/Incision Problem:Wound Care and/or Skin Problems Completed Wound is stable. Educated patient on hand hygiene and infection control techniques, signs/symptoms of infection and when to call or report concerns to home health or provider. patient able to verbalize teach back of hand hygiene, signs/symptoms of infection and when to call or report concerns to home health or provider. patient able to return demonstration of hand hygiene and infection control techniques. patient continuing to require wound education on hand hygiene and infection control techniques, dressing removal, cleansing wound, applying dressing, signs/symptoms of infection and when to call or report concerns to home health or provider. [facility] Visit Details Visit Type -[facility] OASIS Guerrero sfer Discipline -Snf Problems Problem Start Date Status Goals Interventions Assess and Instruct Home Visit Disciplines: Snf 05/01/2022 Active 1 goal linked to scheduled/documented intervention 4 goal interventions scheduled/documented in this visit Medication Management Disciplines: Snf 05/01/2022 Active 1 goal linked to scheduled/documented intervention 1 goal intervention scheduled/documented in this visit Pain Management Disciplines: Snf 05/01/2022 Active 1 goal linked to scheduled/documented intervention 1 goal intervention scheduled/documented in this visit Wound Care and/or Skin Problems Disciplines: Snf 05/12/2022 Active - 1 problem intervention scheduled/documented in this visit Goals Goal Associated Problem Outcome Goal Met? Visit Notes Home Care Plan Assess and Instruct Home Visit No Medications Medication Management No Pain Pain Management No Interventions Intervention Associated Problem/Goal Status Variance Visit Notes Falls Problem:Assess and Instruct Home Visit Goal:Home Care Plan Scheduled Safety Problem:Assess and Instruct Home Visit Goal:Home Care Plan Scheduled Discharge Planning Problem:Assess and Instruct Home Visit Goal:Home Care Plan Scheduled Plan for Next Visit Problem:Assess and Instruct Home Visit Goal:Home Care Plan Scheduled Instruct Medication Management Problem:Medication Management Goal:Medications Scheduled Assess Pain Characteristics and Current Pain Regimen and Instruct Methods of Pain Relief Problem:Pain Management Goal:Pain Scheduled Wound/Incision Problem:Wound Care and/or Skin Problems Scheduled [facility] Visit Details Visit Type -[facility] OASIS Resu mption of Care Discipline -Snf Problems Problem Start Date Status Goals Interventions Assess and Instruct Home Visit Disciplines: Snf 05/01/2022 Active 1 goal linked to scheduled/documented intervention 4 goal interventions scheduled/documented in this visit Medication Management Disciplines: Snf 05/01/2022 Active 1 goal linked to scheduled/documented intervention 1 goal intervention scheduled/documented in this visit Pain Management Disciplines: Snf 05/01/2022 Active 1 goal linked to scheduled/documented intervention 1 goal intervention scheduled/documented in this visit Respiratory Disciplines: Snf 05/01/2022 Active 1 goal linked to scheduled/documented intervention 1 goal intervention scheduled/documented in this visit Wound Care and/or Skin Problems Disciplines: Snf 05/12/2022 Active - 1 problem intervention scheduled/documented in this visit Goals Goal Associated Problem Outcome Goal Met? Visit Notes Home Care Plan Assess and Instruct Home Visit No Medications Medication Management No Pain Pain Management No Oxygen Therapy Respiratory No Interventions Intervention Associated Problem/Goal Status Variance Visit Notes Falls Problem:Assess and Instruct Home Visit Goal:Home Care Plan Completed Clinician taught: patient and caregiver 4-10 Patient IS at risk for falls (a score of 6 or greater is a predictor of future falls) and clinician instructed: assistive device usage, keep frequently used items in reach and emergency response system and/or keep phone on you Patient/caregiver was able to demonstrate 100% via teachback Safety Problem:Assess and Instruct Home Visit Goal:Home Care Plan Completed Assessed patient vulnerability and home safety risks: hx of falls Equipment reviewed rollator Patient at risk for harm or abuse no Family members involved in safety plan for Level 2 or 3 n/a Discharge Planning Problem:Assess and Instruct Home Visit Goal:Home Care Plan Completed Discharge from home care after there are no further skilled needs, and the pt's wound is healed. Plan for Next Visit Problem:Assess and Instruct Home Visit Goal:Home Care Plan Completed CP assess, VS, monitor dressing/wound care, medication education Instruct Medication Management Problem:Medication Management Goal:Medications Completed Home Visit Med Education: Medication list reconciled. Medication profile and in-home medication list updated with appropriate changes. Discrepanices noted during home visit: none Instructed patient on dosing, purpose, and side effects. Medication education completed today on cedinir medication(s). Patient/caregiver is able to teach back 100% of instruction. Assess Pain Characteristics and Current Pain Regimen and Instruct Methods of Pain Relief Problem:Pain Management Goal:Pain Completed Instruct Oxygen Usage Problem:Respiratory Goal:Oxygen Therapy Completed Patient reports: understanding Clinician taught: patient and caregiver Clinician instructed on: management/precaution s of oxygen therapy and care of equipment, and on proper storage of oxygen. Patient/caregiver is able to teach back 100% of instruction. Wound/Incision Problem:Wound Care and/or Skin Problems Completed Wound is progressing. Educated patient and caregiver on hand hygiene and infection control techniques, dressing removal, cleansing wound, applying dressing, signs/symptoms of infection and when to call or report concerns to home health or provider. patient and caregiver able to verbalize teach back of hand hygiene, signs/symptoms of infection and when to call or report concerns to home health or provider. patient and caregiver able to return demonstration of hand hygiene and infection control techniques, dressing removal, cleansing wound and applying dressing. patient and caregiver independent with wound education. [facility] Visit Details Visit Type -SN HH OASIS Resu mption of Care Discipline -Snf Problems Problem Start Date Status Goals Interventions Assess and Instruct Home Visit Disciplines: Snf 05/01/2022 Active 1 goal linked to scheduled/documented intervention 4 goal interventions scheduled/documented in this visit Medication Management Disciplines: Snf 05/01/2022 Active 1 goal linked to scheduled/documented intervention 1 goal intervention scheduled/documented in this visit Pain Management Disciplines: Snf 05/01/2022 Active 1 goal linked to scheduled/documented intervention 1 goal intervention scheduled/documented in this visit Respiratory Disciplines: Snf 05/01/2022 Active 1 goal linked to scheduled/documented intervention 1 goal intervention scheduled/documented in this visit Wound Care and/or Skin Problems Disciplines: Snf 05/12/2022 Active - 1 problem intervention scheduled/documented in this visit Goals Goal Associated Problem Outcome Goal Met? Visit Notes Home Care Plan Assess and Instruct Home Visit No Medications Medication Management No Pain Pain Management No Oxygen Therapy Respiratory No Interventions Intervention Associated Problem/Goal Status Variance Visit Notes Falls Problem:Assess and Instruct Home Visit Goal:Home Care Plan Completed Clinician taught: patient and caregiver 4-10 Patient IS at risk for falls (a score of 6 or greater is a predictor of future falls) and clinician instructed: assistive device usage, keep frequently used items in reach and emergency response system and/or keep phone on you Patient/caregiver was able to demonstrate 100% via teachback Safety Problem:Assess and Instruct Home Visit Goal:Home Care Plan Completed Assessed patient vulnerability and home safety risks: hx of falls Equipment reviewed rollator Patient at risk for harm or abuse no Family members involved in safety plan for Level 2 or 3 n/a Discharge Planning Problem:Assess and Instruct Home Visit Goal:Home Care Plan Completed Discharge from home care after there are no further skilled needs, and the pt's wound is healed. Plan for Next Visit Problem:Assess and Instruct Home Visit Goal:Home Care Plan Completed CP assess, VS, monitor dressing/wound care, medication education Instruct Medication Management Problem:Medication Management Goal:Medications Completed Home Visit Med Education: Medication list reconciled. Medication profile and in-home medication list updated with appropriate changes. Discrepanices noted during home visit: none Instructed patient on dosing, purpose, and side effects. Medication education completed today on cedinir medication(s). Patient/caregiver is able to teach back 100% of instruction. Assess Pain Characteristics and Current Pain Regimen and Instruct Methods of Pain Relief Problem:Pain Management Goal:Pain Completed Instruct Oxygen Usage Problem:Respiratory Goal:Oxygen Therapy Completed Patient reports: understanding Clinician taught: patient and caregiver Clinician instructed on: management/precaution s of oxygen therapy and care of equipment, and on proper storage of oxygen. Patient/caregiver is able to teach back 100% of instruction. Wound/Incision Problem:Wound Care and/or Skin Problems Completed Wound is progressing. Educated patient and caregiver on hand hygiene and infection control techniques, dressing removal, cleansing wound, applying dressing, signs/symptoms of infection and when to call or report concerns to home health or provider. patient and caregiver able to verbalize teach back of hand hygiene, signs/symptoms of infection and when to call or report concerns to home health or provider. patient and caregiver able to return demonstration of hand hygiene and infection control techniques, dressing removal, cleansing wound and applying dressing. patient and caregiver independent with wound education. [facility] Visit Details Visit Type -SN HH Routine Vi sit Discipline -Snf Problems Problem Start Date Status Goals Interventions Assess and Instruct Home Visit Disciplines: Snf 05/01/2022 Active 1 goal linked to scheduled/documented intervention 4 goal interventions scheduled/documented in this visit Medication Management Disciplines: Snf 05/01/2022 Active 1 goal linked to scheduled/documented intervention 1 goal intervention scheduled/documented in this visit Pain Management Disciplines: Snf 05/01/2022 Active 1 goal linked to scheduled/documented intervention 1 goal intervention scheduled/documented in this visit Respiratory Disciplines: Snf 05/01/2022 Active 1 goal linked to scheduled/documented intervention 1 goal intervention scheduled/documented in this visit Wound Care and/or Skin Problems Disciplines: Snf 05/12/2022 Active 1 goal linked to scheduled/documented intervention 1 problem intervention scheduled/documented in this visit 1 goal intervention scheduled/documented in this visit Goals Goal Associated Problem Outcome Goal Met? Visit Notes Home Care Plan Assess and Instruct Home Visit No Medications Medication Management No Pain Pain Management No Oxygen Therapy Respiratory No Wound/Incision Wound Care and/or Skin Problems No Interventions Intervention Associated Problem/Goal Status Variance Visit Notes Falls Problem:Assess and Instruct Home Visit Goal:Home Care Plan Completed Clinician taught: patient and caregiver 4-10 Patient IS at risk for falls (a score of 6 or greater is a predictor of future falls) and clinician instructed: assistive device usage, keep frequently used items in reach and emergency response system and/or keep phone on you Patient/caregiver was able to demonstrate 100% via teachback Safety Problem:Assess and Instruct Home Visit Goal:Home Care Plan Completed Assessed patient vulnerability and home safety risks: hx of falls Equipment reviewed rollator Patient at risk for harm or abuse no Family members involved in safety plan for Level 2 or 3 spouse Discharge Planning Problem:Assess and Instruct Home Visit Goal:Home Care Plan Completed Planned discharge for next . Pt aware and has signed a [facility]. Plan for Next Visit Problem:Assess and Instruct Home Visit Goal:Home Care Plan Completed CP assess, VS, monitor dressing/wound care, medication education Instruct Medication Management Problem:Medication Management Goal:Medications Completed Home Visit Med Education: Medication list reconciled. Medication profile and in-home medication list updated with appropriate changes. Discrepanices noted during home visit: none Instructed patient on dosing, purpose, and side effects. Medication education completed today on nitro tabs medication(s). Patient/caregiver is able to teach back 100% of instruction. Assess Pain Characteristics and Current Pain Regimen and Instruct Methods of Pain Relief Problem:Pain Management Goal:Pain Completed Instruct Oxygen Usage Problem:Respiratory Goal:Oxygen Therapy Completed Patient reports: understanding Clinician taught: patient and caregiver Clinician instructed on: management/precaution s of oxygen therapy and care of equipment, and on proper storage of oxygen. Patient/caregiver is able to teach back 100% of instruction. Wound/Incision Problem:Wound Care and/or Skin Problems Goal:Wound/Incision Completed Wound is progressing. Educated patient and caregiver on hand hygiene and infection control techniques, dressing removal, cleansing wound, applying dressing, signs/symptoms of infection and when to call or report concerns to home health or provider. patient and caregiver able to verbalize teach back of hand hygiene, signs/symptoms of infection and when to call or report concerns to home health or provider. patient and caregiver able to return demonstration of hand hygiene and infection control techniques, dressing removal, cleansing wound and applying dressing. patient and caregiver independent with wound education. Wound/Incision Problem:Wound Care and/or Skin Problems Completed Wound is progressing. Educated patient and caregiver on hand hygiene and infection control techniques, dressing removal, cleansing wound, applying dressing, signs/symptoms of infection and when to call or report concerns to home health or provider. patient and caregiver able to verbalize teach back of hand hygiene, signs/symptoms of infection and when to call or report concerns to home health or provider. patient and caregiver able to return demonstration of hand hygiene and infection control techniques, dressing removal, cleansing wound and applying dressing. patient and caregiver independent with wound education. [facility] Visit Details Visit Type -SN HH OASIS Disc harge Discipline -Snf Problems Problem Start Date Status Goals Interventions Assess and Instruct Home Visit Disciplines: Snf 05/01/2022 Resolved on 12/22/2022 1 goal linked to scheduled/documented intervention 4 goal interventions scheduled/documented in this visit Medication Management Disciplines: Snf 05/01/2022 Resolved on 12/22/2022 1 goal linked to scheduled/documented intervention 1 goal intervention scheduled/documented in this visit Pain Management Disciplines: Snf 05/01/2022 Resolved on 12/22/2022 1 goal linked to scheduled/documented intervention 1 goal intervention scheduled/documented in this visit Wound Care and/or Skin Problems Disciplines: Snf 05/12/2022 Resolved on 12/22/2022 - 1 problem intervention scheduled/documented in this visit Goals Goal Associated Problem Outcome Goal Met? Visit Notes Home Care Plan Assess and Instruct Home Visit No Medications Medication Management No Pain Pain Management No Interventions Intervention Associated Problem/Goal Status Variance Visit Notes Falls Problem:Assess and Instruct Home Visit Goal:Home Care Plan Scheduled Safety Problem:Assess and Instruct Home Visit Goal:Home Care Plan Scheduled Discharge Planning Problem:Assess and Instruct Home Visit Goal:Home Care Plan Scheduled Plan for Next Visit Problem:Assess and Instruct Home Visit Goal:Home Care Plan Scheduled Instruct Medication Management Problem:Medication Management Goal:Medications Scheduled Assess Pain Characteristics and Current Pain Regimen and Instruct Methods of Pain Relief Problem:Pain Management Goal:Pain Scheduled Wound/Incision Problem:Wound Care and/or Skin Problems Scheduled [facility] Actions cp assess, med review, 1000m l clear yellow drainage from r pleurx. plans for mwf visits with alternating sides of draining. and daughter present [facility]* Actions left pleurx 800ml clear yell ow [facility]* Actions spoke to donn rn, with dr blackman to report left side slight clear yellow leakage as well as area of 2cm x 3cm slight swelling about 4cm below insertion site. donn states she will report to dr sparks's PA and call with any new orders. 55ml clear yellow drainage from left side. 1000ml clear yellow fluid from right side. [facility]* Actions left side 570 dark myra flu id, picture taken of area of edema just below insertion site, GIOVANNY bah with dr sparks, notified. right side 650ml clear yellow drainage. message received from dr sparks stating he will see the patient in the [facility] wed and confirms patient will need to be drained by [facility] wed sometime [facility]* Actions left side area of concern be low insertion site picture taaken and uploaded into [employer]. message sent to Niurka BALTAZAR with dr sparks. orders to drain bilateral sides at each visit, mwf. left 550ml clear yellow, right 700ml clear yellow. supplies ordered. [facility]* Actions Homebound Status Reason(s) patient is Homebound: unsteady gait/poor balance Type of home :1-story house/ trailer Type of support and available caregivers: self or spouse [facility]* Actions left side 400ml myra, right side 350ml clear yellow [facility]* Actions cp assess, med review, left side drain 350ml clear myra, r side pleurx 350ml clear yellow [facility]* Actions bilat pleurx drains, message sent to dr sparks regarding nursing visit set. awaiting response [facility]* Actions left chest 200ml clear yello w. right chest 475ml clear yellow. order received from dr sparks to continue bilat pleurx draining mwf [facility]* Actions cp assess, med review, messa ge sent to niurka santana and dr sparks regarding drainage amounts, orders received to continue bilat draining mwf. [facility]* Actions 250ml drained from both Pleu nik drains - L ambder, hazy - R cleay yellow. Pt tolerated well. [facility]* Actions 10 Plerux drainage systems o rders via [employer]. [facility]* Actions COVID 19 precautions and pro per handwashing followed and education provided to patient, voiced understanding. CP assessment, meds reviewed, education provided on dessing care, oxygen mgmt and safety with ambulation, patient voiced understanding. Pt has khoi pleurx tubes to anterior mid chest, sites are clean, dry and intact. Pt had removed dressings before visit. 300cc was drained from Lt side and 440cc from Rt side. Pt tolerated well. Cleansed area and applied foam, guaze and Tegaderm dressings.Visit vertification not signed d/t covid 19 precautions Narratives Homebound Status Reason(s) patient is Homebound: unsteady gait/poor balance and poor endurance related to khoi pleurex drains Type of home :1-story house/ trailer Type of support and available caregivers: self or spouse [facility]* Actions Supplies ordered - 10 pleure x drains/dressing kits order #[id number] [facility]* Actions L pleurex drain - 350ml ambe r hazy R pleurex drain - 450ml yellow hazy [facility]* Actions Supplies ordered - 10 pleure x drains/dressing kits order #[id number] [facility]* Actions L side - 425ml removed - haz y yellow/myra R side - 475ml removed - hazy yellow [facility]* Actions KHOI pleurex drains drained w ithout difficulty. Pt tolerated well. L - 300ml hazy myra R - 275ml hazy dark myra --- pluerex drain supplies ordered - 10 kits - confirmation #[id number] [facility]* Actions KHOI pleurex drain catheters drained without issue.Pt tolerated well. L - 350ml hazy myra R - 450ml hazy yellow [facility]* Actions Pleurex supplies ordered\ Confirmation - #[id number] [facility]* Actions confirmation #[id number] - 10 pleurex drain sets [facility]* Actions confirmation #[id number] - 10 pleurex drain sets [facility]* Actions Pt is to start dialysis this Monday. As of now, it is planned that he runs 3x/day, M, W, F. [facility]* Actions #[id number] - order number 10 pleurex drains [facility]* Actions 10 pleurex drain kits ordere d - Confirmation #[id number] L drain - 350ml clear yellow noted R drain - 450ml hazy myra noted [facility]* Actions Pleurex catheters were not d rained today d/t lower drain amounts. This info was left in a message for Dr Sparks's nurse. [facility]* Actions Scant amount of drainage not ed from each pleurex catheter. New dressigns applied. Dr Sparks's office was called and notified. the pt will receive a call to set up a time for a f/u CT scan. --- Pt and spouse had questions regarding paaliative/hospice care. Call made to pt's PCP, Dr Olmos, for referral for hospice per pt/spouse request. is out of the office until next Monday. Nurse left a message for Dr Olmos to send a referral to home care/hospice office. [facility]* Actions Scant amount of drainage not ed from each pleurex catheter. New dressigns applied. Dr Sparks's office was called and notified. the pt will receive a call to set up a time for a f/u CT scan. --- Pt and spouse had questions regarding paaliative/hospice care. Call made to pt's PCP, Dr Olmos, for referral for hospice per pt/spouse request. is out of the office until next Monday. Nurse left a message for Dr Olmos to send a referral to home care/hospice office. [facility]* Actions Message left with Dr Sparks's office regarding the pt's catheter not draining, and the pt's breathing is becoming more difficult. [facility]* Actions Consult visit completed with patient and spouse at their home. Reviewed hospice philosophy, goals of care for pt/family, education on EOL s/s as well as comfort care management of symptoms. Explained hospice levels of care including GIP, Respite, hospice in facility as well as hospice at home. Educated to care team and roles of each member. Payor source and insurance reviewed during consult. Patient reports he has a couple doctor appointments coming up and he wishes to speak with them before making decision concerning hospice. Hospice binder provided and encouraged patient to reach out to hospice after appointments. [facility]* Actions Pt is requesting no nursing visit next week with 's appts that he has set up. Next visit will be the following the week. [facility]* Actions Homebound Status Criteria 1: Assistive Device(s): Walker Needs assistance of at least 1 to leave home Criteria 2: Patient confined to home due to physician order for activity restrictions, no llifting, bending or twisting of trunk. Type of Home: 1-story house/ trailer, number of outside stairs: 3 Narratives Pt has previously been a [facility] and a hospice patient. Pt has hx of colon CA, ESRD, A fib, CHF, HTN. He has had surgery for hemicolectomy and is on continuous O2 with BIPAP. [facility]* Actions Homebound Status Criteria 1: Assistive Device(s): Walker Needs assistance of at least 1 to leave home Criteria 2: Patient confined to home due to fair endurance related to dialysis and diagnosis Type of Home: 1-story house [facility]* Actions Pt educated on importance of donning supplemental O2 at all times to reduce risk of syncope, proper placement of FWW and hands during transfers, importance of controlled STS transfers to reduce risk of falls, and cueing for PLB, line management, and importance of improving frequency of HEP to obtain maximal benefit. Pt demonstrated good verbal understanding of all education this date. Narratives PT RA complete this date, PT has completed 4 visits with focus on improving strength, endurance, gait, and transfers. Patient demonstrates progress towards goals including gradual improved strength and gait quality but continues to have endurance deficits and difficulty with line management to reduce risk of falls. PT to continue at a frequency of 1x4 to continue addressing impaired endurance, strength, line management, stair training.. Standardized testing scores include: TU.7 seconds and 30 second chair stand test: 4. Due to severity at onset, comorbidities, age, and complications during POC, patient would continue to benefit from skilled physical therapy. Patient is a good rehabilitation candidate due to strong family support, motivated/participation in POC, good adherence to recommendation/modifications and compliance with HEP. [facility]* Actions Call made to Dr George's offic e notifying them of the plan to recert the pt d/t the open areas to his coccyx area. [facility] Actions A picture of the pt's wound was take, and then wound care was performed. After the pt had donned his clothes and sat down, the picture was showed to him. While transfering the phone back, the [employer] catracho was accidently closed. This caused the picture to be lost. The measurements have been placed LDA. [facility]* Actions CP assessment meds reviewed education provided on s/sx of infection r/t wounds, diet education provided. educated patient on safety with ambulation. patient voiced understanding. report given to CM wound care provided per doctor order pictures and measurements taken Narratives Homebound Status Criteria 1: Assistive Device(s): Walker Needs assistance of at least 1 to leave home Criteria 2: Patient confined to home due to unsteady gait/poor balance and dyspnea at rest or with exertion Type of Home: 2-story house [facility]* Actions Pt was discharged home from the hospital yesterdayper his . She states that he has an appt with his PCP this Monday. The home care office has not received a DINORAH referral for the pt from the previous signing provider. A call was made to the pt's PCP's office and the situation was explained. A request for a DINORAH referral was made. Someone will be contacting the home care office with further orders. Pt/spouse are requesting 12/01/22 for DINORAH visit. Return call received from Dr Olmos's office. A verbal order received for a DINORAH referral and Dr Olmos will follow for home care services. documented in this encounter [facility] for visit Narrative* Auth/Cert Specialty Diagnoses / Procedures Referred By Alisson t Referred To Contact Diagnoses Pleural effusion Bilateral pleural effusion Pleural effusion [J90] Bilateral pleural effusion [J90] Procedures AL INSERTION INDWELLING TUNNELED PLEURAL CATHETER RIGHT PLEUR X CATHETER PLACEMENT Referral ID Status Reason Start Date Expiration Date Visits Re quested Visits Authorized [id number] [facility] Auth/Cert Specialty Diagnoses / Procedures Referred By Contac t Referred To Contact Referral ID Status Reason Start Date Expiration Date Visits Re quested Visits Authorized [id number] [facility]* Auth/Cert Specialty Diagnoses / Procedures Referred By Contac t Referred To Contact Referral ID Status Reason Start Date Expiration Date Visits Re quested Visits Authorized [id number] [facility]* Auth/Cert Specialty Diagnoses / Procedures Referred By Contac t Referred To Contact Referral ID Status Reason Start Date Expiration Date Visits Re quested Visits Authorized [id number] [facility]* Auth/Cert Specialty Diagnoses / Procedures Referred By Contac t Referred To Contact Diagnoses Malignant neoplasm of ascending colon (HCC) Malignant neoplasm of ascending colon (HCC) [C18.2] Procedures AL COLECTOMY PRTL W/RMVL TERMINAL ILEUM & ILEOCOLOS Sherry George, DO [address] [place] [address] Referral ID Status Reason Start Date Expiration Date Visits Re quested Visits Authorized [id number] 04/11/2022 1 1 [facility] Assessments Diagnosis Coronary artery disease invo lving [place] coronary artery of [place] heart without angina pectoris - Primary Essential hypertension Unspecified essential hypertension Diagnosis Essential hypertension- Primary Unspecified essential hypertension Coronary artery disease involving [place] coronary artery of [place] heart without angina pectoris Dyspnea on exertion Other dyspnea and respiratory abnormality Ventricular tachycardia (paroxysmal) (HCC) Paroxysmal ventricular tachycardia Mixed hyperlipidemia Diagnosis Coronary artery disease involving [place] coronary artery of [place] heart without angina pectoris Essential hypertension Unspecified essential hypertension Ventricular tachycardia (paroxysmal) (HCC) Paroxysmal ventricular tachycardia Diagnosis Coronary artery disease involving [place] coronary artery of [place] heart without angina pectoris- Primary Mixed hyperlipidemia Chronic combined systolic and diastolic congestive heart failure (HCC) Essential hypertension Unspecified essential hypertension Diagnosis ELLIOTT (dyspnea on exertion) Other dyspnea and respiratory abnormality Diagnosis Therapeutic drug monitoring- Primary Encounter for therapeutic drug monitoring ELLIOTT (dyspnea on exertion) Other dyspnea and respiratory abnormality Essential hypertension Unspecified essential hypertension Coronary artery disease involving [place] coronary artery of [place] heart without angina pectoris MARCELO on CPAP Chronic systolic congestive heart failure (HCC) Diagnosis Therapeutic drug monitoring Encounter for therapeutic drug monitoring Systolic congestive heart failure, unspecified HF chronicity (HCC) Diagnosis Therapeutic drug monitoring- Primary Encounter for therapeutic drug monitoring Chronic systolic congestive heart failure (HCC) Diagnosis Therapeutic drug monitoring- Primary Encounter for therapeutic drug monitoring Systolic congestive heart failure, unspecified HF chronicity (HCC) Diagnosis Therapeutic drug monitoring- Primary Encounter for therapeutic drug monitoring Chronic systolic congestive heart failure (HCC) Diagnosis ELLIOTT (dyspnea on exertion) Other dyspnea and respiratory abnormality Diagnosis Chronic systolic congestive heart failure (HCC) Diagnosis Therapeutic drug monitoring- Primary Encounter for therapeutic drug monitoring Chronic systolic congestive heart failure (HCC) Diagnosis Coronary artery disease involving [place] coronary artery of [place] heart without angina pectoris Chronic systolic congestive heart failure (HCC) Mixed hyperlipidemia Essential hypertension Unspecified essential hypertension Diagnosis Therapeutic drug monitoring Encounter for therapeutic drug monitoring Chronic systolic congestive heart failure (HCC) Diagnosis Therapeutic drug monitoring Encounter for therapeutic drug monitoring Chronic systolic heart failure (HCC) Chronic systolic heart failure Diagnosis Coronary artery disease involving [place] coronary artery of [place] heart without angina pectoris Diagnosis Chronic systolic congestive heart failure (HCC) Diagnosis medication management- Primary Encounter for therapeutic drug monitoring Chronic systolic congestive heart failure (HCC) Diagnosis Therapeutic drug monitoring- Primary Encounter for therapeutic drug monitoring Chronic systolic heart failure (HCC) Chronic systolic heart failure Diagnosis MARCELO on CPAP Essential hypertension Unspecified essential hypertension Coronary artery disease involving [place] coronary artery of [place] heart without angina pectoris Chronic systolic congestive heart failure (HCC) Diagnosis Therapeutic drug monitoring- Primary Encounter for therapeutic drug monitoring Chronic systolic congestive heart failure (HCC) Diagnosis Coronary artery disease involving [place] coronary artery of [place] heart without angina pectoris- Primary Mixed hyperlipidemia Chronic systolic congestive heart failure (HCC) Essential hypertension Unspecified essential hypertension 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) Reason for Referral Status Reason Specialty Diagnoses / Procedures Referred By Contact Referred To Contact Authorized Cardiology Diagnoses Coronary artery disease involving [place] coronary artery of [place] heart without angina pectoris Essential hypertension Ventricular tachycardia (paroxysmal) (HCC) Procedures Echocardiogram complete Lenin Ramirez MD [address] [facility] Tim[address] [place] [address] Status Reason Specialty Diagnoses / Procedures Referred By Contact Referred To Contact Authorized Cardiology Diagnoses Coronary artery disease involving [place] coronary artery of [place] heart without angina pectoris Procedures ECG 12 lead Lenin Ramirez MD [address] [place] [address] Status Reason Specialty Diagnoses / Procedures Referre d By Contact Referred To Contact Closed Cardiology Diagnoses Coronary artery disease involving [place] coronary artery of [place] heart without angina pectoris Essential hypertension Ventricular tachycardia (paroxysmal) (HCC) Procedures Echocardiogram complete Lenin Ramirez MD [address] [facility] Tim[address] [place] [address] Status Reason Specialty Diagnoses / Procedures Referre d By Contact Referred To Contact Closed Radiology Diagnoses ELLIOTT (dyspnea on exertion) Procedures NM Myocardial Perfusion Multiple SPECT Lenin Ramirez MD [address] [facility] [address] [place] [address] Status Reason Specialty Diagnoses / Procedures Referred By Contact Referred To Contact Pending Review Cardiology Diagnoses ELLIOTT (dyspnea on exertion) Procedures Echocardiogram complete Park Hawk, HIM CODER [address] [facility] [address] [place], [place] [phone] Status Reason Specialty Diagnoses / Procedures Referred By Contact Referred To Contact Authorized Diagnoses Therapeutic drug monitoring Park Hawk, IGOR [address] [facility] [address] [place], [place] [phone] [facility] [address] [place] [address] Status Reason Specialty Diagnoses / Procedures Referre d By Contact Referred To Contact Closed Cardiology Diagnoses ELLIOTT (dyspnea on exertion) Procedures Echocardiogram complete Park Hawk CNP [address] [place] [phone] Specialty Diagnoses / Procedures Referred By Contac t Referred To Contact Cardiology Diagnoses PAF (paroxysmal atrial fibrillation) (HCC) Procedures ECG 12 lead Park Hawk CNP [address] [phone] Referral ID Status Reason Start Date Expiration Date V isits Requested Visits Authorized [id number] Pending Review 10/26/2020 10/26/2021 1 1 Referral ID Status Reason Start Date Expiration Date V isits Requested Visits Authorized [id number] Authorized 10/26/2020 10/26/2021 1 1 Specialty Diagnoses / Procedures Referred By Contac t Referred To Contact Radiology Diagnoses Pleural effusion Procedures CT Guided Thoracentesis Park Hawk CNP [address] [place] [address] Referral ID Status Reason Start Date Expiration Date V isits Requested Visits Authorized [id number] New Request 10/26/2020 10/26/2021 1 1 Specialty Diagnoses / Procedures Referred By Contac t Referred To Contact Cardiology Diagnoses S/P CABG (coronary artery bypass graft) PAF (paroxysmal atrial fibrillation) (HCC) Chronic systolic congestive heart failure (HCC) Coronary artery disease involving [place] coronary artery of [place] heart without angina pectoris Essential hypertension Procedures Echocardiogram complete Lenin Ramirez MD [address] [address] Referral ID Status Reason Start Date Expiration Date V isits Requested Visits Authorized [id number] Pending Review 01/17/2021 01/17/2022 1 1 Specialty Diagnoses / Procedures Referred By Contac t Referred To Contact Radiology Diagnoses Pleural effusion Procedures CT Chest Without Contrast Jalil Sparks MD [address] [facility] [address] [place] [address] Referral ID Status Reason Start Date Expiration Date V isits Requested Visits Authorized [id number] Authorized 01/12/2021 01/12/2022 1 1 Specialty Diagnoses / Procedures Referred By Contac t Referred To Contact Cardiology Diagnoses PAF (paroxysmal atrial fibrillation) (HCC) Procedures ECG 12 Lead Lenin Ramirez MD [address] [facility] [address] [phone] Referral ID Status Reason Start Date Expiration Date V isits Requested Visits Authorized [id number] Pending Review 06/09/2021 06/09/2022 4 4 Specialty Diagnoses / Procedures Referred By Contac t Referred To Contact Home Health Services Diagnoses Sepsis, due to unspecified organism, unspecified whether acute organ dysfunction present (HCC) Other pneumonia, unspecified organism Jalil Sparks MD [address] [place] [address] [address] [place] [address] [address] Referral ID Status Reason Start Date Expiration Date V isits Requested Visits Authorized [id number] Authorized 07/05/2021 07/05/2022 1 1 Specialty Diagnoses / Procedures Referred By Contac t Referred To Contact Home Health Services Diagnoses Chronic systolic congestive heart failure (HCC) Coronary artery disease involving [place] coronary artery of [place] heart without angina pectoris Dyspnea on exertion Generalized weakness Lenin Ramirez MD [address] [address] Referral ID Status Reason Start Date Expiration Date Visits Requested Visits Authorized [id number] Authorized Specialty Services Required/Pat reinaldont's Best Interest 08/17/2021 08/17/2022 1 1 Specialty Diagnoses / Procedures Referred By Contac t Referred To Contact Cardiology Diagnoses Coronary artery disease involving [place] coronary artery of [place] heart without angina pectoris Chronic systolic congestive heart failure (HCC) Procedures Echocardiogram limited Lenin Ramirez MD [address] [facility] [address] [place] [address] Referral ID Status Reason Start Date Expiration Date V isits Requested Visits Authorized [id number] New Request 11/17/2021 11/17/2022 1 1 Specialty Diagnoses / Procedures Referred By Contac t Referred To Contact General Surgery Diagnoses Adenocarcinoma (HCC) System, Provider Not In Sherry George DO [address] [address] Referral ID Status Reason Start Date Expiration Date V isits Requested Visits Authorized [id number] Authorized 03/23/2022 03/23/2023 1 1 Referral ID Status Reason Start Date Expiration Date V isits Requested Visits Authorized [id number] Pending Review 08/26/2022 08/26/2023 10 10 Specialty Diagnoses / Procedures Referred By Contac t Referred To Contact Radiology Diagnoses Elevated CEA Malignant neoplasm of ascending colon (HCC) Procedures CT Chest Abdomen Pelvis With Contrast Sherry George DO [address] [address] Referral ID Status Reason Start Date Expiration Date V isits Requested Visits Authorized [id number] Pending Review 11/28/2022 11/28/2023 1 1 Specialty Diagnoses / Procedures Referred By Contac t Referred To Contact Home Health Services Diagnoses Malignant neoplasm of ascending colon (HCC) PAF (paroxysmal atrial fibrillation) (HCC) ESRD on dialysis (HCC) Cellulitis of other specified site Cellulitis of perineum Zack Olmos MD [address] [place] [address] [address] Referral ID Status Reason Start Date Expiration Date V isits Requested Visits Authorized [id number] Authorized 11/29/2022 11/29/2023 1 1 Referral ID Status Reason Start Date Expiration Date V isits Requested Visits Authorized [id number] New Request 03/08/2023 03/07/2024 1 1 History of Present Illness * Lenin Ramirez MD - 05/03/2018 1:29 PM EST I saw Minh Gonzalez in follow up in the office on 05/03/18. And has been doing well from a cardiacstandpoint since I saw him last year. He has no significant or limiting anginal symptoms and rare nitroglycerin use. His major issue presently is approximately 3 months of limiting exertional dyspneafor which he is currently undergoing evaluation. He has evidence on CT of groundglass abnormalitiesas well as bilateral pleural effusions and is scheduled to see a rabies inspector next week. He deniesany fever or chills, weight loss, syncope or other complaints and remains compliant with his medicines. Review of Systems: Documented in Medical Record Physical Exam Vital Signs: BP 147/85 (BP Location: Left arm, Patient Position: Sitting) Pulse 80 Ht 5' 7 Wt 106.5 kg (234 lb 12.8 oz) SpO2 91% BMI 36.77 kg/m General: No acute distress, alert, and oriented x3. Skin: Normal turgor, well-hydrated, HEENT: Normocephalic,EOMI Neck: Supple, no JVD, no bruits Cardiovascular: Regular rate and rhythm. No murmurs gallops or rubs. No JVD. Respiratory: Decreased breath sounds but otherwise clear to auscultation and percussion, no rales, rhonchi or wheezes Abdominal: Soft, nontender, nondistended, without masses or bruits. Extremities : No clubbing cyanosis. 1+ bilateral lower extremity edema Neurological: Cranial nerves grossly intact. No focal neurological deficits noted. Psych: Normal mood and affect Allergy Information: I have reviewed the patient's allergies. Penicillins and Ec aspirin Home Medications: Outpatient Medications as of 05/03/2018 Medication Sig allopurinol (ZYLOPRIM) 100 MG tablet Take 100 mg by mouth daily AMLODIPINE BESYLATE (AMLODIPINE ORAL) Take 10 mg by mouth daily. ASCORBATE CALCIUM (VITAMIN C ORAL) Take 500 mg by mouth daily. ASPIRIN ORAL Take 81 mg by mouth daily . furosemide (LASIX) 80 MG tablet Take 1 (one) tablet (80 mg total) by mouth 2 (two) times a day. (Patient taking differently: Take 40 mg by mouth daily .) losartan (COZAAR) 100 MG tablet Take 100 mg by mouth daily MAGNESIUM OXIDE (MAG-OXIDE ORAL) Take 400 mg by mouth 2 (two) times a day METOPROLOL SUCCINATE ORAL Take 50 mg by mouth daily. MULTIVITAMIN ORAL Take 1 tablet by mouth daily. nitroGLYCERIN (NITROSTAT) 0.[address] 1 (one) tablet (0.4 mg total) under the tongue every 5 (five) minutes as needed for chest pain . omeprazole (PRILOSEC) 20 MG capsule Take 20 mg by mouth daily. ROSUVASTATIN CALCIUM (CRESTOR ORAL) Take 5 mg by mouth at bedtime. EKG: Normal sinus rhythm with a borderline first-degree AV block and frequent PVCs as well as a left IVCD. Assessment/Plan: Coronary artery disease involving [place] coronary artery of [place] heart without angina pectoris As ischemic status has been relatively stable. He has had no recent angina and no nitroglycerin use. He remains compliant with his medicines and I made no changes today. Essential hypertension His blood pressure was mildly elevated in the office however apparently has been well controlled athome on his current regimen. I made no changes in his medications today. Hyperlipidemia He remains on high potency statin therapy which she tolerates well at his current dose with adequate lipid results. No changes were made today Dyspnea on exertion At apparently experienced an upper respiratory infection in late January and since that time is complained of significant and limiting exertional dyspnea. I reviewed his CT and chest x-ray results which were obviously concerning. He is scheduled to see a rabies inspector next week to have this evaluated further. In the interim, I did arrange for an echocardiogram to reevaluate his ventricular function but made no changes in his regimen. * Maritza Barron MA - 05/03/2018 12:11 PM EST Review of Systems Constitution: Negative for diaphoresis, malaise/fatigue, weight gain and weight loss. HENT: Negative for hearing loss, nosebleeds and tinnitus. Eyes: Negative for blurred vision and visual disturbance. Cardiovascular: Positive for dyspnea on exertion, leg swelling and orthopnea. Negative for chest pain, claudication, cyanosis, irregular heartbeat, near- syncope, palpitations, paroxysmal nocturnal dyspnea and syncope. Sleeps on elevated pillow Respiratory: Positive for shortness of breath. Negative for hemoptysis and snoring. Endocrine: Negative for cold intolerance and heat intolerance. Hematologic/Lymphatic: Does not bruise/bleed easily. Skin: Negative for flushing, poor wound healing and rash. Musculoskeletal: Positive for back pain and muscle cramps. Negative for muscle weakness and myalgias. Gastrointestinal: Negative for abdominal pain, change in bowel habit, melena, nausea and vomiting. Genitourinary: Positive for decreased libido. Negative for hematuria. Neurological: Negative for loss of balance and numbness. Psychiatric/Behavioral: Negative for memory loss. The patient is not nervous/anxious. in this encounter* Lenin Ramirez MD - 05/07/2018 2:57 PM EST Labs all stable/OK. No changes. in this encounter* Lenin Ramirez MD - 05/17/2018 1:58 PM EST I saw Minh Gonzalez in follow up in the office on 05/17/18. Ed is doing reasonably well following his recent hospitalization in [place] for fluid overload. He was diuresed nearly 10 pounds with a marked improvement in his edema and a mild improvement in his exertional dyspnea. He did have a visit with the rabies inspector and is scheduled to undergo testing within the next several weeks. He has had no chest pain or discomfort, syncope or other issues since his hospitalization. Review of Systems: Documented in Medical Record Physical Exam Vital Signs: BP (!) 122/59 (BP Location: Left arm, Patient Position: Sitting) Pulse (!) 39 Ht 5' 7 Wt 100.3 kg (221 lb 1.6 oz) SpO2 92% BMI 34.63 kg/m General: No acute distress, alert, and oriented x3. Skin: Normal turgor, well-hydrated, HEENT: Normocephalic,EOMI Neck: Supple, no JVD, no bruits Cardiovascular: Regular rate and rhythm. No murmurs gallops or rubs. No JVD. Respiratory: Clear to auscultation and percussion, no rales, rhonchi or wheezes Abdominal: Soft, nontender, nondistended, without masses or bruits. Extremities : No clubbing cyanosis or edema Neurological: Cranial nerves grossly intact. No focal neurological deficits noted. Psych: Normal mood and affect Allergy Information: I have reviewed the patient's allergies. Penicillins and Ec aspirin Home Medications: Outpatient Medications as of 05/17/2018 Medication Sig allopurinol (ZYLOPRIM) 100 MG tablet Take 100 mg by mouth 2 (two) times a day . ASCORBATE CALCIUM (VITAMIN C ORAL) Take 500 mg by mouth daily. ASPIRIN ORAL Take 81 mg by mouth daily . MAGNESIUM OXIDE (MAG-OXIDE ORAL) Take 400 mg by mouth 2 (two) times a day METOPROLOL SUCCINATE ORAL Take 25 mg by mouth 2 (two) times a day . MULTIVITAMIN ORAL Take 1 tablet by mouth daily. nitroGLYCERIN (NITROSTAT) 0.[address] 1 (one) tablet (0.4 mg total) under the tongue every 5 (five) minutes as needed for chest pain . omeprazole (PRILOSEC) 20 MG capsule Take 20 mg by mouth daily. ROSUVASTATIN CALCIUM (CRESTOR ORAL) Take 5 mg by mouth at bedtime. amLODIPine-valsartan (EXFORGE) 5-320 mg per tablet Take 1 (one) tablet by mouth daily . Assessment/Plan: Coronary artery disease involving [place] coronary artery of [place] heart without angina pectoris Ed continues doing well from an ischemic standpoint with no angina no EKG evidence of disease progression. I made no changes in his regimen today. CHF (congestive heart failure) (HCC) Following his recent hospitalization and diuresis his fluid status appears improved. His renal function did deteriorate slightly during his hospitalization but hopefully will stabilize. I made no changes in his medicines however did arrange to have his renal function reevaluated within the next several weeks. Essential hypertension As blood pressure was excellent today. No changes were made in his regimen. * Maritza Barron MA - 05/17/2018 11:52 AM EST Review of Systems Constitution: Negative for diaphoresis, malaise/fatigue, weight gain and weight loss. HENT: Negative for hearing loss, nosebleeds and tinnitus. Eyes: Negative for blurred vision and visual disturbance. Cardiovascular: Positive for dyspnea on exertion, irregular heartbeat, leg swelling, orthopnea and paroxysmal nocturnal dyspnea. Negative for chest pain, claudication, cyanosis, near-syncope, palpitations and syncope. Sleeps on elevated pillow Respiratory: Positive for shortness of breath and snoring. Negative for hemoptysis. Endocrine: Negative for cold intolerance and heat intolerance. Hematologic/Lymphatic: Does not bruise/bleed easily. Skin: Negative for flushing, poor wound healing and rash. Musculoskeletal: Positive for back pain and muscle cramps. Negative for muscle weakness and myalgias. Gastrointestinal: Negative for abdominal pain, change in bowel habit, melena, nausea and vomiting. Genitourinary: Negative for decreased libido and hematuria. Neurological: Negative for loss of balance and numbness. Psychiatric/Behavioral: Negative for memory loss. The patient is not nervous/anxious. in this encounter* Park Hawk, HIM CODER - 07/26/2018 10:44 AM EDT [facility] [address] [facility] [address] [facility] [phone] Assessment & Plan: Essential hypertension B/P above goal 152/78, 163/72. Monitors B/P at home almost daily and states has noticed a trend in increasing B/P. Current medications include: Lopressor 25 mg daily, Exforge 5-320 mg daily. Will plan on making medication adjustments relative to decreased EF and continue to monitor B/P closely. Coronary artery disease involving [place] coronary artery of [place] heart without angina pectoris Long-standing CAD with Hx MD in 2005 Cath 2015: Discrete 40% proximal lesion in LAD Diffuse 25% proximal lesion in circumflex Diffuse 25% proximal lesion in RCA Ventricular Function: LV Gram- 55% EF with normal wall motion Valve Function: Valve functions within normal limits Current medications include: Crestor, NTG PRN (has not needed), metoprolol, ASA, Exforge Has chronic ELLIOTT with moderate exertion. Ed states he feels it has improved since his hospitalization for heart failure earlier this year. Denies chest pain/pressure, palpitations, orthopnea, PND, lightheadedness, syncope or near- syncopal episodes. Stress test 07/20/2018: Essentially unchanged from 2015. LV function decreased from 50% to 39-40%, likely secondary to LV remodeling. MARCELO on CPAP Currently using CPAP. States is struggling to adjust to the device. Is using a nasal pillow. I suggested that he contact the [employer] company to discuss other device options to improve his comfort and compliance. CHF (congestive heart failure) (HCC) Hospitalized at [facility] earlier this year with successful diuresis. Known CKD, stage 3 and follows with Nephrology, Dr. Christiansen, in [place]. Recent stress testing revealed substantial decline in EF. Ed states he does have ELLIOTT, now with moderate exertion, it has improved from the ELLIOTT he was experiencing with minimal exertion. Ed continues to have bilateral lower leg edema which improves overnight and increases as his day goes on. He is wearing compression stockings daily. 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 Holter 06/2018 revealed very frequent PVC's with brief episodes NSVT and PAT. Discussed at length with Ed and his regarding HF, treatment options, limiting sodium, daily monitoring of weight and B/P. Will plan on having Ed follow in the Heart Failure Clinic. Medication changes: Stop Exforge, start Entresto 24-26 mg twice daily. Change from Lopressor to Coreg 6.25 mg twice daily. Will evaluate for adding Aldactone over the next several weeks by trending renal function. Concerned about cost of Entresto. Ed was given 1 month free trial card. Will follow up with thread checker patient assistance program. Orders Placed This Encounter Basic metabolic panel Ambulatory referral to Heart Failure Clinic Echocardiogram complete DISCONTD: metoprolol tartrate (LOPRESSOR) 25 MG tablet carvedilol (COREG) 6.25 MG tablet sacubitril-valsartan (ENTRESTO) 24-26 mg per tablet Subjective: Minh Gonzalez is a 73 y.o. male seen in the office today for Follow-up (abn SPECT. ) and Hypertension (pt states BP has been high at home since starting the Exforge ) HPI: Minh Gonzalez is here today for follow up. A recent stress test revealed declining EF. Ed was hospitalized earlier this year with an acute HF episode at [facility]. After diuresis the symptoms of ELLIOTT with mild exertion improved. He continues to have ELLIOTT with moderate exertion and bilateral lower leg edema persists. He denies chest pain/pressure, orthopnea, PND, palpitations, lightheadedness, syncope or near-syncopal episodes. Histories: Past Medical History: Diagnosis Date Abnormal stress test Arthritis Chest pain CHF (congestive heart failure) ([facility]) Chronic kidney disease COPD (chronic obstructive pulmonary disease) ([facility]) 03/2018 Coronary artery disease Hyperlipidemia Hypertension Myocardial infarction ([facility]) MARCELO on CPAP 2018 SOB (shortness of breath) Past Surgical History: Procedure Laterality Date CARDIAC CATHETERIZATION N/A 08/11/2014 Procedure: Left Heart Cath Possible PTCA/Stent; Surgeon: Lenin Ramirez MD; Location: [facility] EDUC[facility] RN; Service: CARDIAC CATHETERIZATION Right 12/31/2014 Procedure: Left Heart Cath Possible PTCA/Stent; Surgeon: Ranulfo Cobb MD; Location: [facility] RN; Service: CARDIAC CATHETERIZATION 08/11/2014 EF: 55% CARDIAC CATHETERIZATION 11/06/2006 EF: 45% CARDIAC CATHETERIZATION 08/09/2005 EF: 50% CARDIAC CATHETERIZATION 07/08/2005 EF: 45% CARDIAC CATHETERIZATION 12/31/2014 EF: 55% CORONARY ANGIOPLASTY WITH STENT PLACEMENT 08/09/2005 NORM- CX, RCA CORONARY ANGIOPLASTY WITH STENT PLACEMENT 07/08/2005 NORM- RCA CORONARY STENT PLACEMENT FOOT SURGERY Right JOINT REPLACEMENT knee replacement KNEE SURGERY TONSILLECTOMY Family History Problem Relation Age of Onset Heart attack Father Heart failure Father Hodgkin's lymphoma Father Stroke Mother Social History Tobacco Use Smoking status: Former Smoker Last attempt to quit: 03/13/1989 Years since quittin.3 Smokeless tobacco: Never Used Substance Use Topics Alcohol use: Yes Comment: occasionally Drug use: No Outpatient Medications as of 07/26/2018 Medication Sig allopurinol (ZYLOPRIM) 100 MG tablet Take 100 mg by mouth 2 (two) times a day . ASCORBATE CALCIUM (VITAMIN C ORAL) Take 500 mg by mouth daily. ASPIRIN ORAL Take 81 mg by mouth daily . furosemide (LASIX) 40 MG tablet One tablet in the morning. 0.5 tablet in the evening . MAGNESIUM OXIDE (MAG-OXIDE ORAL) Take 400 mg by mouth 2 (two) times a day MULTIVITAMIN ORAL Take 1 tablet by mouth daily. nitroGLYCERIN (NITROSTAT) 0.[address] 1 (one) tablet (0.4 mg total) under the tongue every 5 (five) minutes as needed for chest pain . omeprazole (PRILOSEC) 20 MG capsule Take 20 mg by mouth daily as needed . ROSUVASTATIN CALCIUM (CRESTOR ORAL) Take 5 mg by mouth at bedtime. [DISCONTINUED] amLODIPine-valsartan (EXFORGE) 5-320 mg per tablet Take 1 (one) tablet by mouth daily . carvedilol (COREG) 6.25 MG tablet Take 1 (one) tablet (6.25 mg total) by mouth 2 (two) times a day . sacubitril-valsartan (ENTRESTO) 24-26 mg per tablet Take 1 (one) tablet by mouth 2 (two) times a day . [DISCONTINUED] metoprolol tartrate (LOPRESSOR) 25 MG tablet One tablet twice a day . (Patient taking differently: One tablet twice a day .) Allergies Allergen Reactions Penicillins Other (See Comments) High fever Ec Aspirin Hives Only the EC aspirin Review of Systems Constitution: Negative for diaphoresis, malaise/fatigue, weight gain and weight loss. HENT: Negative for hearing loss, nosebleeds and tinnitus. Eyes: Negative for blurred vision and visual disturbance. Cardiovascular: Positive for dyspnea on exertion. Negative for chest pain, claudication, cyanosis, irregular heartbeat, leg swelling, near-syncope, orthopnea, palpitations, paroxysmal nocturnal dyspnea and syncope. Respiratory: Positive for shortness of breath. Negative for hemoptysis and snoring. Endocrine: Negative for cold intolerance and heat intolerance. Hematologic/Lymphatic: Does not bruise/bleed easily. Skin: Negative for flushing, poor wound healing and rash. Musculoskeletal: Positive for back pain. Negative for muscle weakness and myalgias. Gastrointestinal: Negative for abdominal pain, change in bowel habit, melena, nausea and vomiting. Genitourinary: Negative for decreased libido and hematuria. Neurological: Negative for loss of balance and numbness. Psychiatric/Behavioral: Negative for memory loss. The patient is not nervous/anxious. Objective: Physical Exam Constitutional: He is oriented to person, place, and time. He appears well- developed and well-nourished. HENT: Head: Normocephalic. Mouth/Throat: Oropharynx is clear and moist. Eyes: Conjunctivae and lids are normal. Neck: No JVD present. Carotid bruit is not present. Cardiovascular: Normal rate, normal heart sounds and normal pulses. Exam reveals no gallop and no friction rub. No murmur heard. Regularly irregular Pulmonary/Chest: Effort normal. He has wheezes. Faint expiratory wheezs Abdominal: Soft. Bowel sounds are normal. He exhibits no mass. There is no hepatosplenomegaly. There is no tenderness. Musculoskeletal: Normal range of motion. He exhibits edema. +1 lower leg edema bilaterally Neurological: He is alert and oriented to person, place, and time. Gait normal. Skin: Skin is warm and intact. No rash noted. Psychiatric: He has a normal mood and affect. His behavior is normal. Vitals reviewed. Vitals: Vitals: 07/26/18 0803 07/26/18 0840 BP: (!) 152/78 (!) 163/72 BP Location: Left arm Left arm Patient Position: Sitting Sitting Pulse: 78 76 SpO2: 94% Weight: 100.1 kg (220 lb 11.2 oz) Height: 5' 7 Follow Up Ordered: Return in about 3 weeks (around 08/16/2018) for [employer]PERATOR visit. Park Hawk CNP * Maritza Barron MA - 07/26/2018 8:03 AM EDT Review of Systems Constitution: Negative for diaphoresis, malaise/fatigue, weight gain and weight loss. HENT: Negative for hearing loss, nosebleeds and tinnitus. Eyes: Negative for blurred vision and visual disturbance. Cardiovascular: Positive for dyspnea on exertion. Negative for chest pain, claudication, cyanosis, irregular heartbeat, leg swelling, near-syncope, orthopnea, palpitations, paroxysmal nocturnal dyspnea and syncope. Respiratory: Positive for shortness of breath. Negative for hemoptysis and snoring. Endocrine: Negative for cold intolerance and heat intolerance. Hematologic/Lymphatic: Does not bruise/bleed easily. Skin: Negative for flushing, poor wound healing and rash. Musculoskeletal: Positive for back pain. Negative for muscle weakness and myalgias. Gastrointestinal: Negative for abdominal pain, change in bowel habit, melena, nausea and vomiting. Genitourinary: Negative for decreased libido and hematuria. Neurological: Negative for loss of balance and numbness. Psychiatric/Behavioral: Negative for memory loss. The patient is not nervous/anxious. documented in this encounter* Leonila Walls RN - 08/03/2018 3:05 PM EDT Heart Disease Management Nurse Progress Note [facility] 08/03/18 Minh Gonzalez 1945 Congestive Heart Failure (HFC visit) Minh Gonzalez is a 73 y.o. year-old male seen today in the [facility] for evaluation. He complains of SOB. Last echo date: 04/2018, stress 07/20/18 Ejection fraction: 39-40% Physician Communication: None Subjective/Objective Vitals: 08/03/18 1217 BP: 141/84 BP Location: Left arm Patient Position: Sitting BP Cuff Size: Adult Pulse: 66 Resp: 16 SpO2: 96% Weight: 98.7 kg (217 lb 9.6 oz) Weight decreased 3 pounds General: feels well Psych: calm Breath Sounds: Clear to auscultation SOB: with exertion, denies any orthopnea, PND, persistent cough or difficulty sleeping. He is trying to get used to his Cpap. Heart Sounds: Irregular many ectopics Skin: WNL Edema: Peripheral 1+ pitting bilat lower legs more around ankles GI/: WNL Activity/Diet: normal activities of daily living, had a discussion about exercise Sodium restriction adherence: yes, is still learning what is ok to eat Fluid restriction adherence: Yes NYHA Functional Classification: Class II: Slight limitation of physical activity. Lab Drawn: Next appt. Assessment & Plan Minh was seen today for congestive heart failure. This was his first visit in the clinic. He and his have already started to work on a low sodium diet. They had good appropriate questions today. Ed said he has improved so much since his initial hospitalization for HF at the beginning of May. He is down 3 pounds from his recent visit with Park and a total of 16 pounds since May. He received education today on HF diagnosis and causes, EF, warning signs of HF flare up, daily weights, medication, 2 gm sodium diet, heart anatomy and exercise. Ed started last week on Coreg and Entresto.He denies any dizziness or lightheadedness since starting these medications. BP today still a little elevated but at home have been mostly in the 130's/70's. HR mid 60's. Ed has a lot of ectopic beats on auscultation. He continues to have some edema but has improved greatly over the past couple months according to he and his . HF education materials given today. Will follow up next week with a BMP and review of physical assessment. Diagnoses and all orders for this visit: Therapeutic drug monitoring - Ambulatory referral to Heart Failure Clinic Recommendation for home daily weights with a reminder to call with weight gain >3 pounds, increased shortness of breath, waking up at night short of breath, increase in swelling, getting tired faster, urinating less frequently, dizziness or lightheadedness. Goals (paln of care) for next visit: 1. CHF Assessment 2. Labs, BMP next visit 3. Decrease in weight and edema Medications administered this Visit Follow-Up: Return in about 1 week (around 08/10/2018). Leonila Walls RN documented in this encounter* Leonila Walls RN - 08/10/2018 1:41 PM EDT Heart Disease Management Nurse Progress Note [facility] 08/10/18 Minh Limtristen 1945 Congestive Heart Failure (HC visit) Minh Gonzalez is a 73 y.o. year-old male seen today in the [facility] for evaluation. He complains of SOB. Last echo date: 04/2018, stress 07/20/18 Ejection fraction: 39-40% Physician Communication: None Subjective/Objective Vitals: 08/10/18 1119 BP: 148/78 BP Location: Left arm Patient Position: Sitting BP Cuff Size: Adult Pulse: 72 Resp: 16 SpO2: 95% Weight: 98.5 kg (217 lb 1.6 oz) Weight has maintained General: feels well Psych: calm Breath Sounds: Clear to auscultation SOB: with exertion, denies any orthopnea, PND, persistent cough or difficulty sleeping. He is trying to get used to his Cpap, might need a new mask because this one is not staying on Heart Sounds: Irregular many ectopics Skin: WNL Edema: Peripheral 1+ pitting bilat lower legs more around ankles GI/: WNL Activity/Diet: normal activities of daily living Sodium restriction adherence: yes, is still learning what is ok to eat Fluid restriction adherence: Yes NYHA Functional Classification: Class II: Slight limitation of physical activity. Lab Drawn: BMP today Assessment & Plan Minh was seen today for congestive heart failure. He has maintained his weight since last visit. Ed said he is doing ok with his diet, still learning what he can and shouldn't have. He said he is feeling pretty good though. He still has some dyspnea on exertion occasionally. Edema is still about the same. He said in the morning his swelling is better. Ed continues to have good output from his twice daily Lasix. BP's still run a little high at times 140's/60-80's. Had discussed which medications to titrate next with Park and Dr. Ramirez. Will check blood work today and if ok will look at starting Aldactone per Dr. Ramirez's order. Will continue to monitor weights, BP and HR at home. Diagnoses and all orders for this visit: Therapeutic drug monitoring - Ambulatory referral to Heart Failure Clinic Recommendation for home daily weights with a reminder to call with weight gain >3 pounds, increased shortness of breath, waking up at night short of breath, increase in swelling, getting tired faster, urinating less frequently, dizziness or lightheadedness. Goals (paln of care) for next visit: 1. CHF Assessment 2. Labs, BMP today 3. Decrease in weight and edema Medications administered this Visit Follow-Up: Return in about 3 weeks (around 08/31/2018). Leonila Walls RN documented in this encounter* Leonila Walls RN - 08/31/2018 2:51 PM EDT Heart Disease Management Nurse Progress Note [facility] 08/31/18 Minh Gonzalez 1945 Congestive Heart Failure (HFC) Minh Gonzalez is a 73 y.o. year-old male seen today in the [facility] for evaluation. He complains of less Sob Last echo date: 04/2018, stress 07/20/18 Ejection fraction: 39-40% Physician Communication: Park Hawk NP ordered Ed to decrease Aldactone to 12.5 mg daily due to diarrhea will hold today Subjective/Objective Vitals: 08/31/18 1105 BP: (!) 155/88 BP Location: Left arm Patient Position: Sitting BP Cuff Size: Adult Pulse: (!) 50 Resp: 16 SpO2: 95% Weight: 96.1 kg (211 lb 12.8 oz) Weight has decreased 5 pounds General: feels well Psych: calm Breath Sounds: Clear to auscultation SOB: with exertion, denies any orthopnea, PND, persistent cough or difficulty sleeping. He is trying to get used to his Cpap, he did just get a new mask and is working on wearing for longer period oftime Heart Sounds: Irregular many ectopics Skin: WNL Edema: No edema noted today, no JVD GI/: WNL Activity/Diet: normal activities of daily living Sodium restriction adherence: yes, is still learning what is ok to eat Fluid restriction adherence: Yes NYHA Functional Classification: Class II: Slight limitation of physical activity. Lab Drawn: BMP today Assessment & Plan Minh was seen today for congestive heart failure. He is down 5 pounds today and is feeling prettygood except for having trouble with diarrhea since starting Aldactone. He held yesterday and has not taken yet today with no diarrhea today. Park S will decrease dose to 12.5 mg. Ed's BP was doing really well when first starting Aldactone beginning of August but is slowly creeping up to 140's-150's/60-70's. HR anywhere from 40's to 70's. Ed has no edema today and is wearing his compression stockings most days except for when wearing shorts. NO titration up of meds today. Will obtain a BMP and see Park next week to determine any changes. Diagnoses and all orders for this visit: Therapeutic drug monitoring - Ambulatory referral to Heart Failure Clinic Recommendation for home daily weights with a reminder to call with weight gain >3 pounds, increased shortness of breath, waking up at night short of breath, increase in swelling, getting tired faster, urinating less frequently, dizziness or lightheadedness. Goals (paln of care) for next visit: 1. CHF Assessment 2. Labs, BMP today 3. Maintain weight Medications administered this Visit Follow-Up: Return in about 3 weeks (around 09/21/2018). Leonila Walls RN documented in this encounter* Leonila Walls RN - 09/21/2018 1:45 PM EDT Heart Disease Management Nurse Progress Note [facility] 09/21/18 Minh Gonzalez 1945 Congestive Heart Failure (HFC visit) Minh Gonzalez is a 73 y.o. year-old male seen today in the [facility] for follow up. He complains of less Sob and feels he may have a little more energy. Last echo date: 04/2018, stress 07/20/18 Ejection fraction: 39-40% Physician Communication: None Subjective/Objective Vitals: 09/21/18 1105 BP: 146/77 BP Location: Left arm Patient Position: Sitting BP Cuff Size: Adult Pulse: 66 Resp: 16 SpO2: 95% Weight: 98.8 kg (217 lb 14.4 oz) Weight has increased 4 pounds General: feels well Psych: calm Breath Sounds: Clear to auscultation SOB: with exertion, denies any orthopnea, PND, persistent cough or difficulty sleeping. Heart Sounds:reg Irregular many ectopics Skin: WNL Edema: trace to 1+ pitting edema, no JVD GI/: WNL Activity/Diet: normal activities of daily living Sodium restriction adherence: yes, is still learning what is ok to eat Fluid restriction adherence: Yes NYHA Functional Classification: Class II: Slight limitation of physical activity. Lab Drawn: [facility] today Assessment & Plan Minh was seen today for congestive heart failure. He is feeling good overall. Park did stop his Aldactone and he no longer has any diarrhea. His Potassium and Bun/Creat elevated with Aldactone as well. Will check blood work today. Yanick is tolerating the mid dose of Entresto without any adverse reactions. Will wait on blood work and discuss with Park before any titration. Blood pressures at homeare steady 130's/60-70's. He has an occasional 140-150's systolic. He does have some edema today but said he really did not comply with his diet over the september. Two boxes of Entresto samplesgiven today. Diagnoses and all orders for this visit: Therapeutic drug monitoring - Ambulatory referral to Heart Failure Clinic Recommendation for home daily weights with a reminder to call with weight gain >3 pounds, increased shortness of breath, waking up at night short of breath, increase in swelling, getting tired faster, urinating less frequently, dizziness or lightheadedness. Goals (paln of care) for next visit: 1. CHF Assessment 2. Labs, BMP today 3. Maintain weight Medications administered this Visit Follow-Up: Return in about 3 weeks (around 10/12/2018). Leonila Walls RN documented in this encounter* Leonila Walls RN - 10/12/2018 12:39 PM EDT Heart Disease Management Nurse Progress Note [facility] 10/12/18 Minh Gonzalez 1945 Congestive Heart Failure (HC visit) Minh Gonzalez is a 73 y.o. year-old male seen today in the [facility] for follow up. He complains of less Sob and feels pretty good Last echo date: 04/2018, stress 07/20/18 Ejection fraction: 39-40% Physician Communication: None Subjective/Objective Vitals: 10/12/18 1014 BP: (!) 153/92 BP Location: Left arm Patient Position: Sitting BP Cuff Size: Adult Pulse: 70 Resp: 16 SpO2: 93% Weight: 99.3 kg (218 lb 14.4 oz) Weight has increased 2 pounds General: feels well Psych: calm Breath Sounds: Clear to auscultation SOB: with exertion, denies any orthopnea, PND, persistent cough or difficulty sleeping. Heart Sounds:reg today with occasional skipped beats Skin: WNL Edema: trace to 1+ pitting edema, no JVD GI/: WNL Activity/Diet: normal activities of daily living Sodium restriction adherence: yes, most of the time Fluid restriction adherence: Yes NYHA Functional Classification: Class II: Slight limitation of physical activity. Lab Drawn: BMP today Assessment & Plan Minh was seen today for congestive heart failure. He is feeling good overall. His weight has beenup and down some due to his diet, too many events this summer. Ed is up a couple pounds today with some increase in edema. His BP is up today as well. He is going to watch his diet closer. He really is feeling better overall. BP's at home have been 130's/60's-80's most days he will on occasion havea systolic in the 140-150 range. HR has been much better 50-70's most days now. Ed is scheduled arlin ECHO in the next couple of weeks. He is hoping his EF has improved, he would like to have a kneereplacement done. Will check with Dr. Ramirez on titration of Coreg. Lab today to follow up on kidneys and electrolytes. Diagnoses and all orders for this visit: Therapeutic drug monitoring - Ambulatory referral to Heart Failure Clinic Recommendation for home daily weights with a reminder to call with weight gain >3 pounds, increased shortness of breath, waking up at night short of breath, increase in swelling, getting tired faster, urinating less frequently, dizziness or lightheadedness. Goals (paln of care) for next visit: 1. CHF Assessment 2. Labs, BMP today 3. Maintain weight Medications administered this Visit Follow-Up: Return in about 1 month (around 11/09/2018). Leonila Walls RN documented in this encounter* Leonila Walls RN - 10/19/2018 1:34 PM EDT Pre Auth has been approved by [facility] for Entresto 49 mg/51 mg. Pharmacy notified ([facility]man) documented in this encounter* Leonila Walls RN - 11/09/2018 10:34 AM EDT Heart Disease Management Nurse Progress Note [facility] 11/09/18 Minh Askewrich 1945 Congestive Heart Failure (HFC visit) Minh Gonzalez is a 73 y.o. year-old male seen today in the [facility] for follow up. He has no new HF symptoms today Last echo date: 04/2018, stress 07/20/18, 10/26/18 Ejection fraction: 39-40%, 40-45% Physician Communication: Park called Ed about his Echo results and said if BP still up and HR ok increase Coreg. Coreg increased to 12.5 mg twice daily from (6.25 mg morning and 12.5 mg) Subjective/Objective Vitals: 11/09/18 1009 BP: (!) 155/92 BP Location: Left arm Patient Position: Sitting BP Cuff Size: Adult Pulse: 70 Weight: 99.7 kg (219 lb 12.8 oz) Weight has increased 1 pounds General: feels well Psych: calm Breath Sounds: Clear to auscultation SOB: with exertion, denies any orthopnea, PND, persistent cough or difficulty sleeping. Heart Sounds:regular Skin: WNL Edema: trace to 1+ pitting edema ankles only no JVD GI/: WNL Activity/Diet: normal activities of daily living Sodium restriction adherence: yes, most of the time Fluid restriction adherence: Yes NYHA Functional Classification: Class II: Slight limitation of physical activity. Lab Drawn: None Assessment & Plan Minh was seen today for congestive heart failure. He is feeling good overall. His weight has beenup and down some due to his diet. He has continued to monitor his BP and HR. Some blood pressures have been a little better, 130's/70's but others much higher. HR stable 60-70's. Per Park we will increase his Coreg to 12.5 mg twice daily. Instructed Ed to continue to monitor is vitals and call with any concerns. Ed states he does on occasion take an extra Lasix if his weight is up more than 3 pounds and increase in edema. He said he does have good results from it when he takes it. Diagnoses and all orders for this visit: Coreg increase to 12.5 mg twice daily Therapeutic drug monitoring - Ambulatory referral to Heart Failure Clinic Recommendation for home daily weights with a reminder to call with weight gain >3 pounds, increased shortness of breath, waking up at night short of breath, increase in swelling, getting tired faster, urinating less frequently, dizziness or lightheadedness. Goals (paln of care) for next visit: 1. CHF Assessment 2. Monitor BP and HR 3. Maintain weight Medications administered this Visit Follow-Up: Return in about 3 weeks (around 11/30/2018). Leonila Walls RN documented in this encounter* Leonila Walls RN - 12/31/2018 12:26 PM EDT Heart Disease Management Nurse Progress Note [facility] 12/31/18 Minh Gonzalez 1945 Congestive Heart Failure (HFC visit) Minh Gonzalez is a 73 y.o. year-old male seen today in the [facility] for follow up. He has no new HF symptoms today Last echo date: 04/2018, stress 07/20/18, 10/26/18 Ejection fraction: 39-40%, 40-45% Physician Communication: Subjective/Objective Vitals: 12/31/18 1005 BP: (!) 150/62 BP Location: Left arm Patient Position: Sitting BP Cuff Size: Adult Pulse: 66 Resp: 16 SpO2: 94% Weight: 100 kg (220 lb 8 oz) Weight has maintained General: feels well Psych: calm Breath Sounds: Clear to auscultation SOB: with exertion, denies any orthopnea, PND, persistent cough or difficulty sleeping. Heart Sounds:regular Skin: WNL Edema: trace pitting edema left mobley and ankle, JVD GI/: WNL Activity/Diet: normal activities of daily living Sodium restriction adherence: yes, most of the time does admit to eating out more Fluid restriction adherence: Yes NYHA Functional Classification: Class II: Slight limitation of physical activity. Lab Drawn: [facility] today Assessment & Plan Minh was seen today for congestive heart failure. He is feeling good overall. He increased his Coreg to 25 mg twice daily as ordered. He has been monitoring his BP which has been primarily in the 130's/60's at times higher in the 150's/80's. His HR is stable in the 60's but on a few days he had HR in the 30's. He said he cannot tell when it is lower. Ed is trying to where his Cpap more, he went7 hours the other night. 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 Diagnoses and all orders for this visit: Therapeutic drug monitoring - Ambulatory referral to Heart Failure Clinic Recommendation for home daily weights with a reminder to call with weight gain >3 pounds, increased shortness of breath, waking up at night short of breath, increase in swelling, getting tired faster, urinating less frequently, dizziness or lightheadedness. Goals (paln of care) for next visit: 1. CHF Assessment 2. Monitor BP and HR 3. Maintain weight Medications administered this Visit Follow-Up: Return in about 4 weeks (around 01/28/2019). Leonila Walls RN documented in this encounter* Lenin Ramirez MD - 02/28/2019 3:13 PM EST I saw Minh Gonzalez in follow up in the office on 02/28/19. Ed continues doing extremely well froma cardiovascular standpoint. He complains of very mild exertional dyspnea but no orthopnea, PND, chest pain or syncope. He remains extremely compliant with his medications which he continues to tolerate well. He is planning to undergo total knee replacement early next year prompting this preoperative visit. Review of Systems: Documented in Medical Record Physical Exam Vital Signs: Blood Pressure (Abnormal) 153/82 (BP Location: Left arm, Patient Position: Sitting) Pulse 67 Height 5' 7 Weight 103.2 kg (227 lb 8 oz) Oxygen Saturation 95% Body Mass Index 35.63 kg/m General: No acute distress, alert, and oriented x3. Skin: Normal turgor, well-hydrated, HEENT: Normocephalic,EOMI Neck: Supple, no bruits Cardiovascular: Regular rate and rhythm. No murmurs gallops or rubs. No JVD. No peripheral edema noted. Respiratory: Clear to auscultation and percussion, no rales, rhonchi or wheezes Abdominal: Soft, nontender, nondistended, without masses or bruits. Extremities : No clubbing or cyanosis. Pulses intact. Neurological: Cranial nerves grossly intact. No focal neurological deficits noted. Psych: Normal mood and affect Allergy Information: I have reviewed the patient's allergies. Penicillins and Ec aspirin Home Medications: Outpatient Medications as of 02/28/2019 Medication Sig allopurinol (ZYLOPRIM) 100 MG tablet Take 100 mg by mouth 2 (two) times a day . ASCORBATE CALCIUM (VITAMIN C ORAL) Take 500 mg by mouth daily. ASPIRIN ORAL Take 81 mg by mouth daily . carvedilol (COREG) 25 MG tablet Take 1 (one) tablet (25 mg total) by mouth 2 (two) times a day . furosemide (LASIX) 20 MG tablet 20 mg daily . MAGNESIUM OXIDE (MAG-OXIDE ORAL) Take 400 mg by mouth 2 (two) times a day MULTIVITAMIN ORAL Take 1 tablet by mouth daily. nitroGLYCERIN (NITROSTAT) 0.[address] 1 (one) tablet (0.4 mg total) under the tongue every 5 (five) minutes as needed for chest pain . omeprazole (PRILOSEC) 20 MG capsule Take 20 mg by mouth daily as needed . rosuvastatin (Crestor) 10 MG tablet Take 1 (one) tablet (10 mg total) by mouth at bedtime Recent increase per Pcp from 5 mg . sacubitril-valsartan (Entresto) 97-103 mg per tablet Take 1 (one) tablet by mouth 2 (two) times a day . Assessment/Plan: Coronary artery disease involving [place] coronary artery of [place] heart without angina pectoris He continues doing well from an ischemic standpoint with no angina or other associated ischemic symptoms. I reviewed his medicines and made no changes. CHF (congestive heart failure) (HCC) His most recent echocardiogram demonstrated stable left ventricular systolic function with ejectionfraction in the range of 40 to 45%. Given his elevated blood pressure I did increase his Entresto to 97-103 mg twice daily but made no other changes in his medicines. Essential hypertension His blood pressure was mildly elevated today in the office. His Entresto was increased he will continue to follow his pressures at home. Hyperlipidemia He remains on high potency statin therapy with adequate lipid levels. No changes were made today. * Maritza Barron MA - 02/28/2019 1:44 PM EST Review of Systems Constitution: Negative for diaphoresis, malaise/fatigue, weight gain and weight loss. HENT: Negative for hearing loss, nosebleeds and tinnitus. Eyes: Negative for blurred vision and visual disturbance. Cardiovascular: Negative for chest pain, claudication, cyanosis, dyspnea on exertion, irregular heartbeat, leg swelling, near-syncope, orthopnea, palpitations, paroxysmal nocturnal dyspnea and syncope. Respiratory: Positive for shortness of breath. Negative for hemoptysis and snoring. Endocrine: Negative for cold intolerance and heat intolerance. Hematologic/Lymphatic: Does not bruise/bleed easily. Skin: Negative for flushing, poor wound healing and rash. Musculoskeletal: Positive for back pain and muscle cramps. Negative for muscle weakness and myalgias. Gastrointestinal: Negative for abdominal pain, change in bowel habit, melena, nausea and vomiting. Genitourinary: Negative for decreased libido and hematuria. Neurological: Negative for loss of balance and numbness. Psychiatric/Behavioral: Negative for memory loss. The patient is not nervous/anxious. documented in this encounter* Leonila Walls RN - 03/25/2019 1:28 PM EST Heart Disease Management Nurse Progress Note [facility] 03/25/19 Minh Gonzalez 1945 Congestive Heart Failure (HFC) Minh Gonzalez is a 73 y.o. year-old male seen today in the [facility] for follow up. He has no new HF symptoms today Last echo date: 04/2018, stress 07/20/18, 10/26/18 Ejection fraction: 39-40%, 40-45% Physician Communication: Subjective/Objective Vitals: 03/25/19 1016 03/25/19 1021 BP: (!) 176/89 (!) 178/88 BP Location: Left arm Left arm Patient Position: Sitting Sitting BP Cuff Size: Adult Adult Pulse: 66 Resp: 16 SpO2: 94% Weight has increased slightly General: feels well Psych: calm Breath Sounds: Clear to auscultation SOB: with exertion, denies any orthopnea, PND, persistent cough or difficulty sleeping. Heart Sounds:regular Skin: WNL Edema: 1+ pitting edema Rt > Lt, has compression hose on, no JVD GI/: WNL Activity/Diet: normal activities of daily living Sodium restriction adherence: yes, most of the time Fluid restriction adherence: Yes NYHA Functional Classification: Class II: Slight limitation of physical activity. Lab Drawn: None Assessment & Plan Minh was seen today for congestive heart failure. He is feeling good overall. Ed has tolerated the increase in his Entresto but is a little concerned that his BP has not come down much. He states he has not had any adverse reactions from it. Will obtain labs today to check kidneys. Ed is hoping to schedule his knee replacement soon. He is recovering from a bout of bronchitis. He will work on bringing his weight down along with his mild edema. Diagnoses and all orders for this visit: Therapeutic drug monitoring - Ambulatory referral to Heart Failure Clinic Recommendation for home daily weights with a reminder to call with weight gain >3 pounds, increased shortness of breath, waking up at night short of breath, increase in swelling, getting tired faster, urinating less frequently, dizziness or lightheadedness. Goals (plan of care) for next visit: 1. CHF Assessment 2. Monitor BP and HR 3. Maintain weight Medications administered this Visit Follow-Up: Return in about 2 months (around 05/24/2019). Leonila Walls RN documented in this encounter* Leonila Walls RN - 05/24/2019 2:48 PM EDT Heart Disease Management Nurse Progress Note [facility] 05/24/19 Minh Askewrich 1945 Congestive Heart Failure (HFC visit) Minh Gonzalez is a 73 y.o. year-old male seen today in the [facility] for follow up. He has no new HF symptoms today Last echo date: 04/2018, stress 07/20/18, 10/26/18 Ejection fraction: 39-40%, 40-45% Physician Communication: None today Subjective/Objective Vitals: 05/24/19 1008 BP: 139/87 BP Location: Left arm Patient Position: Sitting BP Cuff Size: Adult Pulse: 70 Resp: 16 SpO2: 93% Weight: 99.2 kg (218 lb 9.6 oz) Weight has decreased from previous visit General: feels well Psych: calm Breath Sounds: Clear to auscultation SOB: with exertion, denies any orthopnea, PND, persistent cough or difficulty sleeping. Heart Sounds:regular Skin: WNL Edema: No edema in left extremity, only a trace to right ankle, no JVD GI/: WNL Activity/Diet: normal activities of daily living Sodium restriction adherence: yes, most of the time Fluid restriction adherence: Yes NYHA Functional Classification: Class II: Slight limitation of physical activity. Lab Drawn: BMP Assessment & Plan Minh was seen today for congestive heart failure. He is feeling good. He is doing well from a HF standpoint. Ed had a total knee replacement done last month and is coming along nicely. He is walking with a cane and still doing physical therapy. He said he did finally get on an inhaler, Symbicort,but said it is very expensive so he does not think he will be able to continue with it. Ed is using a nebulizer a couple times a day and this has helped clear out some of the phlegm he has been dealing with. BP is steady at home 120's/70's, weight is stable. Ed has not taken any extra Lasix. He is compliant with diet for the most part. Diagnoses and all orders for this visit: Therapeutic drug monitoring - Ambulatory referral to Heart Failure Clinic Recommendation for home daily weights with a reminder to call with weight gain >3 pounds, increased shortness of breath, waking up at night short of breath, increase in swelling, getting tired faster, urinating less frequently, dizziness or lightheadedness. Goals (plan of care) for next visit: 1. CHF Assessment 2. Monitor BP and HR 3. Maintain weight Medications administered this Visit Follow-Up: Return in about 6 weeks (around 07/05/2019). Leonila Walls RN documented in this encounter* Leonila Walls RN - 07/31/2019 2:27 PM EDT Heart Disease Management Nurse Progress Note [facility] 07/31/19 Minh Limtristen 1945 Congestive Heart Failure (HFC visit) Minh Gonzalez is a 74 y.o. year-old male seen today in the [facility] for follow up. He has no new HF symptoms today Last echo date: 04/2018, stress 07/20/18, 10/26/18 Ejection fraction: 39-40%, 40-45% Physician Communication: None today Subjective/Objective Vitals: 07/31/19 0920 BP: (!) 169/88 BP Location: Left arm Patient Position: Sitting BP Cuff Size: Adult Pulse: 72 Resp: 16 SpO2: 94% Weight: 99.7 kg (219 lb 14.4 oz) Weight has decreased 10 pound from his most recent phone call General: feeling much better Psych: calm Breath Sounds: Mostly clear with Insp. Wheezes. No rales auscultated. SOB: with exertion, denies any orthopnea, PND, persistent cough or difficulty sleeping. Heart Sounds:regular Skin: WNL Edema: Has improved, 1+ pitting Rt. lower leg, trace edema of Lt lower leg, no JVD GI/: WNL Activity/Diet: normal activities of daily living sodium restriction adherence: yes, most of the time Fluid restriction adherence: Yes NYHA Functional Classification: Class II: Slight limitation of physical activity. Lab Drawn: BMP Assessment & Plan Minh was seen today for congestive heart failure. He is feeling much better from his most recent phone call. He had over a 10 lb weight gain while taking Prednisone along with an increase in edema and shortness of breath. Lasix was increase to 40 mg twice daily for the past week. Ed is feeling much better. He is down 10 lbs, has a significant decrease in edema and his dyspnea on exertion. Ed's cough has improved as well but not sure if from fluid or finally getting over his URI. Ed's BP is still running a little high 140's-160's/70's-80's with some in the low 90's. He will continue to monitor these. Will obtain BMP today and discuss with Dr. Ramirez, Ed's Lasix dose. Diagnoses and all orders for this visit: Therapeutic drug monitoring - Ambulatory referral to Heart Failure Clinic Recommendation for home daily weights with a reminder to call with weight gain >3 pounds, increased shortness of breath, waking up at night short of breath, increase in swelling, getting tired faster, urinating less frequently, dizziness or lightheadedness. Goals (plan of care) for next visit: 1. CHF Assessment 2. Monitor BP and HR 3. Maintain weight Medications administered this Visit Follow-Up: No follow-ups on file. 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 documented in this encounter* Leonila Walls RN - 09/09/2019 10:48 AM EDT Heart Disease Management Nurse Progress Note [facility] 09/09/19 Minh Gonzalez 1945 Congestive Heart Failure (HC visit) Minh Gonzalez is a 74 y.o. year-old male seen today in the [facility] for follow up. He has no new HF symptoms today Last echo date: 04/2018, stress 07/20/18, 10/26/18 Ejection fraction: 39-40%, 40-45% Physician Communication: None today Subjective/Objective Vitals: 09/09/19 1012 BP: (!) 152/84 BP Location: Left arm Patient Position: Sitting BP Cuff Size: Adult Pulse: 72 Resp: 16 SpO2: 96% Weight: 98.4 kg (217 lb) Weight is steady General: feeling much better Psych: calm Breath Sounds: Clear throughout SOB: with exertion, denies any orthopnea, PND, persistent cough or difficulty sleeping. Heart Sounds:regular Skin: WNL Edema: trace to 1+ slightly pitting edema bilat lower legs, Rt > Lt, no JVD GI/: WNL Activity/Diet: normal activities of daily living sodium restriction adherence: yes, most of the time Fluid restriction adherence: Yes NYHA Functional Classification: Class II: Slight limitation of physical activity. Lab Drawn: none Assessment & Plan Minh was seen today for congestive heart failure. He is doing well. His weight is steady, minimaledema, and good BP control on his home readings. Ed did have his Hydralazine increased to 75 mg twice daily by his kidney doc. He is doing a better job with his diet in watching his sodium intake. [place] monitor his weight and BP at home. Will follow up in a couple months unless needed sooner. Diagnoses and all orders for this visit: Therapeutic drug monitoring - Ambulatory referral to Heart Failure Clinic Recommendation for home daily weights with a reminder to call with weight gain >3 pounds, increased shortness of breath, waking up at night short of breath, increase in swelling, getting tired faster, urinating less frequently, dizziness or lightheadedness. Goals (plan of care) for next visit: 1. CHF Assessment 2. Monitor BP and HR 3. Maintain weight Medications administered this Visit Follow-Up: Return in about 2 months (around 11/09/2019). Leonila Walls RN documented in this encounter* Leonila Walls RN - 10/01/2019 9:05 AM EDT Application faxed to [employer] Patient assistance. FAX: [phone] documented in this encounter* Leonila Walls RN - 11/04/2019 12:10 PM EDT Heart Disease Management Nurse Progress Note [facility] 11/04/19 Minh Askewrich 1945 Congestive Heart Failure (HFC visit) Minh Gonzalez is a 74 y.o. year-old male seen today in the [facility] for follow up. 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 Heart Sounds:regular Skin: WNL Edema: trace to 1+ slightly pitting edema bilat lower legs, Rt > Lt, no JVD GI/: WNL Activity/Diet: normal activities of daily living sodium restriction adherence: yes, most of the time Fluid restriction adherence: Yes NYHA Functional Classification: Class II: Slight limitation of physical activity. Lab Drawn: none Assessment & Plan Minh was seen today for congestive heart failure. He is doing well. His weight is steady, minimaledema, and good BP control on his home readings. Usually 120's/60-70's. He is doing a better job with his diet in watching his sodium intake. Ed does monitor his weight and BP at home. 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 Only experiences dyspnea on exertion occasionally. Will follow up in two months unless needed sooner. Diagnoses and all orders for this visit: Therapeutic drug monitoring - Ambulatory referral to Heart Failure Clinic Recommendation for home daily weights with a reminder to call with weight gain >3 pounds, increased shortness of breath, waking up at night short of breath, increase in swelling, getting tired faster, urinating less frequently, dizziness or lightheadedness. Goals (plan of care) for next visit: 1. CHF Assessment 2. Monitor BP and HR 3. Maintain weight Medications administered this Visit Follow-Up: Return in about 2 months (around 01/04/2020). Leonila Walls RN documented in this encounter* Leonila Walls RN - 12/23/2019 12:48 PM EDT Heart Disease Management Nurse Progress Note [facility] 12/23/19 Minh Gonzalez 1945 Congestive Heart Failure (HFC visit) Minh Gonzalez is a 74 y.o. year-old male seen today in the [facility] for follow up. He has no new HF symptoms today Last echo date: 04/2018, stress 07/20/18, 10/26/18 Ejection fraction: 39-40%, 40-45% Physician Communication: None today Subjective/Objective Vitals: 12/23/19 1012 BP: 136/73 BP Location: Left arm Patient Position: Sitting BP Cuff Size: Adult Pulse: 62 Resp: 16 SpO2: 95% Weight: 94.7 kg (208 lb 12.8 oz) Weight is down from last visit by 11 pounds General: feeling good Psych: calm Breath Sounds: Clear throughout SOB: with exertion, denies any orthopnea, PND, persistent cough or difficulty sleeping. Heart Sounds:regular Skin: WNL Edema: trace bilat ankles only GI/: WNL Activity/Diet: normal activities of daily living sodium restriction adherence: yes, most of the time Fluid restriction adherence: Yes NYHA Functional Classification: Class II: Slight limitation of physical activity. Lab Drawn: none Assessment & Plan Minh was seen today for congestive heart failure. He is doing well. He did spend a few days in the hospital back in Nov for HF. He said he lost about 10 pounds while in. Discussed weighing daily and when his weight is up 3 pounds/day to 5 pounds in a week he needs to take his as needed Lasix. Hesaid he just didn't think about it until he was really short of breath. He is doing much better nowand keeping his weight down. Ed states that he thinks he went off diet for a bit. 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 Lab work today to continue with monitoring kidneys. Diagnoses and all orders for this visit: Therapeutic drug monitoring - Ambulatory referral to Heart Failure Clinic Recommendation for home daily weights with a reminder to call with weight gain >3 pounds, increased shortness of breath, waking up at night short of breath, increase in swelling, getting tired faster, urinating less frequently, dizziness or lightheadedness. Goals (plan of care) for next visit: 1. CHF Assessment 2. Monitor BP and HR 3. Maintain weight Medications administered this Visit Follow-Up: Return in about 8 weeks (around 02/17/2020). Leonila Walls RN documented in this encounter* Leonila Walls RN - 02/17/2020 1:13 PM EST Heart Disease Management Nurse Progress Note [facility] 02/17/20 Minh Limtristen 1945 Congestive Heart Failure (HFC visit) Minh Gonzalez is a 74 y.o. year-old male seen today in the [facility] for follow up. He has no new HF symptoms today Last echo date: 04/2018, stress 07/20/18, 10/26/18 Ejection fraction: 39-40%, 40-45% Physician Communication: None today Subjective/Objective Vitals: 02/17/20 1014 BP: 140/74 BP Location: Left arm Patient Position: Sitting BP Cuff Size: Adult Pulse: 62 Resp: 16 SpO2: 97% Weight: 92.2 kg (203 lb 4.8 oz) Weight is down 5 pounds from last visit General: feeling good today Psych: calm Breath Sounds: Clear throughout SOB: with exertion, denies any orthopnea, PND, persistent cough or difficulty sleeping. Heart Sounds:regular Skin: WNL Edema: No edema noted today, compression hose on bilat GI/: WNL Activity/Diet: normal activities of daily living sodium restriction adherence: yes, most of the time Fluid restriction adherence: Yes NYHA Functional Classification: Class II: Slight limitation of physical activity. Lab Drawn: BMP Assessment & Plan Minh was seen today in the congestive heart failure clinic. He is doing well. He is doing well today. He said he was really short of breath back on Feb 09 so he did increase his Lasix to 60 mg daily from 40 mg. He said that it was very helpful in relieving his shortness of breath. His weight was also up at the time. Will check BMP today. Ed said it just feels like the 40 mg daily is not enough Lasix for him. 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 Ed said he will see his Director Operating next week. BP stable at home. His kidney doc did increase his Hydralazine from 75 mg to 100 mg twice daily. Diagnoses and all orders for this visit: Therapeutic drug monitoring - Ambulatory referral to Heart Failure Clinic Recommendation for home daily weights with a reminder to call with weight gain >3 pounds, increased shortness of breath, waking up at night short of breath, increase in swelling, getting tired faster, urinating less frequently, dizziness or lightheadedness. Goals (plan of care) for next visit: 1. CHF Assessment 2. Monitor BP and HR 3. Maintain weight Medications administered this Visit Follow-Up: Return in about 2 months (around 04/19/2020). Leonila Walls RN documented in this encounter* Leonila Walls RN - 01/28/2019 2:55 PM EST Heart Disease Management Nurse Progress Note [facility] 01/28/19 Minh Gonzalez 1945 Congestive Heart Failure (HFC visit) Minh Gonzalez is a 73 y.o. year-old male seen today in the [facility] Management Clinic for follow up. He has no new HF symptoms today Last echo date: 04/2018, stress 07/20/18, 10/26/18 Ejection fraction: 39-40%, 40-45% Physician Communication: Subjective/Objective Vitals: 01/28/19 1113 BP: (!) 166/85 BP Location: Left arm Patient Position: Sitting BP Cuff Size: Adult Pulse: 62 Resp: 16 SpO2: 95% Weight: 101.3 kg (223 lb 4.8 oz) Weight has increased slightly General: feels well Psych: calm Breath Sounds: Clear to auscultation SOB: with exertion, denies any orthopnea, PND, persistent cough or difficulty sleeping. Heart Sounds:regular Skin: WNL Edema: trace nonpitting bilat ankle, has compression hose on, no JVD GI/: WNL Activity/Diet: normal activities of daily living Sodium restriction adherence: yes, most of the time Fluid restriction adherence: Yes NYHA Functional Classification: Class II: Slight limitation of physical activity. Lab Drawn: None Assessment & Plan Minh was seen today for congestive heart failure. He is feeling good overall. He is tolerating the increase in Coreg without adverse reaction or hypotension. HR has been stable in the 60's. He states that his BP is up in the morning when first waking but it does come down after he takes his medications. Ed will continue to monitor. He continues to have some productive cough in the morning but his Director Operating does not want to start any inhalers for his COPD at this time. Ed will be having a knee replacement sometime in the near future Diagnoses and all orders for this visit: Therapeutic drug monitoring - Ambulatory referral to Heart Failure Clinic Recommendation for home daily weights with a reminder to call with weight gain >3 pounds, increased shortness of breath, waking up at night short of breath, increase in swelling, getting tired faster, urinating less frequently, dizziness or lightheadedness. Goals (plan of care) for next visit: 1. CHF Assessment 2. Monitor BP and HR 3. Maintain weight Medications administered this Visit Follow-Up: Return in about 8 weeks (around 03/25/2019). Leonila Walls RN documented in this encounter* Lenin Ramirez MD - 01/27/2019 11:11 AM EST Clearance letter completed. documented in this encounter* [place], IGOR - 09/05/2018 11:57 AM EDT [facility] [address] [facility] [address] [facility] [id number] Assessment & Plan: MARCELO on CPAP Using CPAP nightly though admits that he does not like and takes it off sometimes through the night. Will continue to work on adjusting to his new mask. He currently is on the 3rd different style of mask. Essential hypertension Reviewed home B/P log. IIs checking his readings twice daily and is generally in the 130-140's/60-70's. Ed has some isolated readings of systolic readings in the 150-160's however he also has frequent PVC's which may be making his readings inaccurate. Current medications include: Entresto 24-26 mg, Lasix 40 mg, Coreg 6.25 mg, Ed did not tolerate Aldactone due to increased K+ and creatinine and quite bothersome diarrhea. Coronary artery disease involving [place] coronary artery of [place] heart without angina pectoris Long-standing CAD with stress testing in 2018 revealing substantial decline in EF, most likely secondary to LV remodeling. Ed states he doesn't have the same stamina he had years ago but denies chest pain/pressure, dyspnea with ADL's, palpitations, orthopnea, PND, syncope or near-syncopal episodes. He denies any use of NTG. Medications include: ASA, BB, statin CHF (congestive heart failure) (HCC) Ed's stress test in July 2018 showed substantial decline in EF. He has been seen in the Heart Failure Clinic for intensive management of his symptoms. His weight has trended down and bilateral lower leg edema is improved, though still present. His energy has improved even though he states he doesn'thave th energy he had years ago . He admits that he is feeling better. He denies orthopnea or PND.He sleeps with 3 pillows for back comfort and not breathing difficulty. 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 He denies syncope or near-syncopal episodes. Ed did not tolerate Aldactone due to increasing K+ and creatinine. He has known CKD. Current medications inclode: Entresto 24-26 mg twice daily and Coreg 6.25 mg twice daily. Will increase Entresto to 49-51 mg and assess tolerance. Reviewed SE of dizziness and hypotension with Ed and his as potential with increased dose. He will start the higher dose next week when he will be off due to the holiday. Ed has a follow up Heart Failure visit on September 21. No orders of the defined types were placed in this encounter. Subjective: Minh Gonzalez is a 73 y.o. male seen in the office today for Follow-up and Congestive Heart Failure HPI: Minh Gonzalez is here today for follow up. He is being followed in the Heart failure Clinic for a recent substantial decline in his EF, most likely due to LV remodeling. Guideline directed therapy was initiated. He is currently tolerating Coreg 6.25 mg twice daily and Entresto 24-26 mg twice daily. He was unable to tolerate Aldactone due to diarrhea and worsening renal function. Since stopping the Aldactone last week the diarrhea has almost completely resolved. Histories: Past Medical History: Diagnosis Date Abnormal stress test Arthritis Chest pain CHF (congestive heart failure) ([facility]) Chronic kidney disease COPD (chronic obstructive pulmonary disease) ([facility]) 03/2018 Coronary artery disease Hyperlipidemia Hypertension Myocardial infarction ([facility]) MARCELO on CPAP 2018 SOB (shortness of breath) Past Surgical History: Procedure Laterality Date CARDIAC CATHETERIZATION N/A 08/11/2014 Procedure: Left Heart Cath Possible PTCA/Stent; Surgeon: Lenin Ramirez MD; Location: [facility] [place] [facility] RN; Service: CARDIAC CATHETERIZATION Right 12/31/2014 Procedure: Left Heart Cath Possible PTCA/Stent; Surgeon: Ranulfo Cobb MD; Location: [facility] [place] [facility] RN; Service: CARDIAC CATHETERIZATION 08/11/2014 EF: 55% CARDIAC CATHETERIZATION 11/06/2006 EF: 45% CARDIAC CATHETERIZATION 08/09/2005 EF: 50% CARDIAC CATHETERIZATION 07/08/2005 EF: 45% CARDIAC CATHETERIZATION 12/31/2014 EF: 55% CORONARY ANGIOPLASTY WITH STENT PLACEMENT 08/09/2005 NORM- CX, RCA CORONARY ANGIOPLASTY WITH STENT PLACEMENT 07/08/2005 NORM- RCA CORONARY STENT PLACEMENT FOOT SURGERY Right JOINT REPLACEMENT knee replacement KNEE SURGERY TONSILLECTOMY Family History Problem Relation Age of Onset Heart attack Father Heart failure Father Hodgkin's lymphoma Father Stroke Mother Social History Tobacco Use Smoking status: Former Smoker Last attempt to quit: 03/13/1989 Years since quittin.5 Smokeless tobacco: Never Used Substance Use Topics Alcohol use: Yes Comment: occasionally Drug use: No Outpatient Medications as of 09/05/2018 Medication Sig allopurinol (ZYLOPRIM) 100 MG tablet Take 100 mg by mouth 2 (two) times a day . ASCORBATE CALCIUM (VITAMIN C ORAL) Take 500 mg by mouth daily. ASPIRIN ORAL Take 81 mg by mouth daily . carvedilol (COREG) 6.25 MG tablet Take 1 (one) tablet (6.25 mg total) by mouth 2 (two) times a day . furosemide (LASIX) 40 MG tablet 40 mg daily . MAGNESIUM OXIDE (MAG-OXIDE ORAL) Take 400 mg by mouth 2 (two) times a day MULTIVITAMIN ORAL Take 1 tablet by mouth daily. nitroGLYCERIN (NITROSTAT) 0.[address] 1 (one) tablet (0.4 mg total) under the tongue every 5 (five) minutes as needed for chest pain . omeprazole (PRILOSEC) 20 MG capsule Take 20 mg by mouth daily as needed . ROSUVASTATIN CALCIUM (CRESTOR ORAL) Take 5 mg by mouth at bedtime. sacubitril-valsartan (ENTRESTO) 24-26 mg per tablet Take 1 (one) tablet by mouth 2 (two) times a day . [DISCONTINUED] spironolactone (ALDACTONE) 25 MG tablet Take 1 (one) tablet (25 mg total) by mouth daily . (Patient taking differently: Take 25 mg by mouth daily Take 1/2 tablet daily in a.m. (12.5 mgtotal) .) Allergies Allergen Reactions Penicillins Other (See Comments) High fever Ec Aspirin Hives Only the EC aspirin Review of Systems Constitution: Negative for diaphoresis, malaise/fatigue, weight gain and weight loss. HENT: Negative for hearing loss, nosebleeds and tinnitus. Eyes: Negative for blurred vision and visual disturbance. Cardiovascular: Positive for dyspnea on exertion. Negative for chest pain, claudication, cyanosis, irregular heartbeat, leg swelling, near-syncope, orthopnea, palpitations, paroxysmal nocturnal dyspnea and syncope. ELLIOTT with moderate exertion, denies with usual ADL's Respiratory: Negative for hemoptysis, shortness of breath and snoring. Endocrine: Negative for cold intolerance and heat intolerance. Hematologic/Lymphatic: Does not bruise/bleed easily. Skin: Negative for flushing, poor wound healing and rash. Musculoskeletal: Positive for back pain. Negative for muscle weakness and myalgias. Gastrointestinal: Positive for diarrhea. Negative for abdominal pain, change in bowel habit, melena, nausea and vomiting. Genitourinary: Negative for decreased libido and hematuria. Neurological: Negative for loss of balance and numbness. Psychiatric/Behavioral: Negative for memory loss. The patient is not nervous/anxious. Objective: Physical Exam Constitutional: He is oriented to person, place, and time. He appears well- developed and well-nourished. HENT: Head: Normocephalic. Mouth/Throat: Oropharynx is clear and moist. Eyes: Conjunctivae and lids are normal. Neck: No JVD present. Carotid bruit is not present. Cardiovascular: Normal rate, normal heart sounds and normal pulses. Exam reveals no gallop and no friction rub. No murmur heard. Irregular rhythm, Ed has known frequent PVC's Pulmonary/Chest: Effort normal and breath sounds normal. Abdominal: Soft. Bowel sounds are normal. He exhibits no mass. There is no hepatosplenomegaly. There is no tenderness. Musculoskeletal: Normal range of motion. He exhibits edema. Trace bilateral lower leg edema Neurological: He is alert and oriented to person, place, and time. Gait normal. Skin: Skin is warm and intact. No rash noted. Psychiatric: He has a normal mood and affect. His behavior is normal. Vitals reviewed. Vitals: Vitals: 09/05/18 1055 09/05/18 1120 BP: 149/79 142/72 Pulse: (!) 41 (!) 54 SpO2: 96% Weight: 96.7 kg (213 lb 3.2 oz) Height: 5' 7 Follow Up Ordered: Return in about 6 months (around 03/07/2019) for With Dr. Ramirez. Park Hawk CNP * Muna Ozuna RN - 09/05/2018 10:56 AM EDT Review of Systems Constitution: Negative for diaphoresis, malaise/fatigue, weight gain and weight loss. HENT: Negative for hearing loss, nosebleeds and tinnitus. Eyes: Negative for blurred vision and visual disturbance. Cardiovascular: Positive for dyspnea on exertion. Negative for chest pain, claudication, cyanosis, irregular heartbeat, leg swelling, near-syncope, orthopnea, palpitations, paroxysmal nocturnal dyspnea and syncope. Respiratory: Negative for hemoptysis, shortness of breath and snoring. Endocrine: Negative for cold intolerance and heat intolerance. Hematologic/Lymphatic: Does not bruise/bleed easily. Skin: Negative for flushing, poor wound healing and rash. Musculoskeletal: Positive for back pain. Negative for muscle weakness and myalgias. Gastrointestinal: Positive for vomiting. Negative for abdominal pain, change in bowel habit, melenaand nausea. Genitourinary: Negative for decreased libido and hematuria. Neurological: Negative for loss of balance and numbness. Psychiatric/Behavioral: Negative for memory loss. The patient is not nervous/anxious. documented in this encounter* Leonila Walls RN - 04/20/2020 3:31 PM EST Heart Disease Management Nurse Progress Note [facility] OFFICE 04/20/20 Minh Askewrich 1945 Congestive Heart Failure (HFC visit) Minh Gonzalez is a 74 y.o. year-old male seen today in the Heart Disease Management Clinic for follow up. He has no new HF symptoms today Last echo date: 04/2018, stress 07/20/18, 10/26/18 Ejection fraction: 39-40%, 40-45% Physician Communication: None today Subjective/Objective Vitals: 04/20/20 1018 BP: 129/76 BP Location: Left arm Patient Position: Sitting BP Cuff Size: Adult Pulse: 66 Resp: 16 SpO2: 96% Weight: 93 kg (205 lb) Weight is 205 here but 200 pounds at home, said he hasn't been that weight for a long time General: feeling good today Psych: calm Breath Sounds: Clear throughout SOB: with exertion, denies any orthopnea, PND, persistent cough or difficulty sleeping. Heart Sounds:regular Skin: WNL Edema: No edema noted today, compression hose on bilat GI/: WNL Activity/Diet: normal activities of daily living sodium restriction adherence: yes, most of the time Fluid restriction adherence: Yes NYHA Functional Classification: Class II: Slight limitation of physical activity. Lab Drawn: BMP today Assessment & Plan Minh was seen today in the congestive heart failure clinic. He is doing well and feeling good. Hesaid he is able to keep the fluid off as long as he takes his Lasix 40 mg morn and 20 mg jessica. He knows he needs to watch his kidneys but is following up with a kidney doc. Will check BMP today to monitor. He said he has had no edema and his weight has been very good. Reviewed blood pressure from home, they look stable in the 120-130's/70-80's. 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 He had no complaints today. Diagnoses and all orders for this visit: Therapeutic drug monitoring - Ambulatory referral to Heart Failure Clinic Recommendation for home daily weights with a reminder to call with weight gain >3 pounds, increased shortness of breath, waking up at night short of breath, increase in swelling, getting tired faster, urinating less frequently, dizziness or lightheadedness. Goals (plan of care) for next visit: 1. CHF Assessment 2. Monitor BP and HR 3. Maintain weight Medications administered this Visit Follow-Up: Return in about 2 months (around 06/18/2020). Leonila Walls RN documented in this encounter* Leonila Walls RN - 11/30/2018 1:39 PM EDT Heart Disease Management Nurse Progress Note [facility] 11/30/18 Minh Corbin Lisa 1945 Congestive Heart Failure (HFC visit) Minh Gonzalez is a 73 y.o. year-old male seen today in the Heart Disease Management Clinic for follow up. He has no new HF symptoms today Last echo date: 04/2018, stress 07/20/18, 10/26/18 Ejection fraction: 39-40%, 40-45% Physician Communication: Will discuss with Dr. Ramirez, Increasing Coreg to 25 mg Bid Subjective/Objective Vitals: 11/30/18 1031 BP: (!) 168/88 BP Location: Left arm Patient Position: Sitting BP Cuff Size: Adult Pulse: 62 Resp: 16 SpO2: 95% Weight: 99.9 kg (220 lb 4.8 oz) Weight has increased 1 pound General: feels well Psych: calm Breath Sounds: Clear to auscultation SOB: with exertion, denies any orthopnea, PND, persistent cough or difficulty sleeping. Heart Sounds:regular Skin: WNL Edema: trace to 1+ pitting edema ankles only no JVD GI/: WNL Activity/Diet: normal activities of daily living Sodium restriction adherence: yes, most of the time does admit to eating out more Fluid restriction adherence: Yes NYHA Functional Classification: Class II: Slight limitation of physical activity. Lab Drawn: None Assessment & Plan Minh was seen today for congestive heart failure. He is feeling good overall. His weight has beenup and down some due to his diet. He has continued to monitor his BP and HR. Blood pressures were better at first with increase in Coreg to 12.5 mg twice daily. BP's have crept back up systolic in the 150's- 160's. Diastolic is doing fine in the 70's. His HR is usually in the 70's. Ed states he hasnot taken any extra Lasix but thought today he may due to some increase in edema, states he had malagasy last night. Ed states he has no more sob than usual. Will check with Dr Ramirez regarding increased BP. Diagnoses and all orders for this visit: Therapeutic drug monitoring - Ambulatory referral to Heart Failure Clinic Recommendation for home daily weights with a reminder to call with weight gain >3 pounds, increased shortness of breath, waking up at night short of breath, increase in swelling, getting tired faster, urinating less frequently, dizziness or lightheadedness. Goals (paln of care) for next visit: 1. CHF Assessment 2. Monitor BP and HR 3. Maintain weight Medications administered this Visit Follow-Up: Return in about 4 weeks (around 12/28/2018). Leonila Walls RN documented in this encounter* Lenin Ramirez MD - 03/26/2020 10:33 AM EST Telephone Visit Via Phone Call [facility] [place] [address] [facility] [address] [facility] [id number] Telephone Visit [facility] 03/26/2020 Lenin Ramirez MD Provider Location: [place] Patient Location Real Estate Branch Manager: None Patient Location: Patient's Home Patient: Minh Gonzalez Date of : 1945 (74 y.o. male) PCP: Zack Olmos MD I discussed risks, benefits and alternatives of a telephone visit telemedicine consultation with the patient (and any accompanying persons) including the risks that the patient's personal health details and medical records will be discussed over real-time, synchronous, interactive audio technology,the visit will not be recorded without the express consent of both the provider and the patient, and that there are inherent diagnostic limitations compared to [id number] evaluations. We elected toproceed with the telephone visit telemedicine consultation. HPI Ed is actually doing remarkably well from a cardiovascular standpoint. His weight is down nearly 20pounds over the past 4 months and his exertional dyspnea and shortness of breath have essentially resolved. He has had no angina, orthostatic lightheadedness, syncope or other complaints. He appears to be tolerating his medical regimen very well and his renal function has been quite stable despite his diuretic therapy. The following portions of the patient's history were reviewed and updated as appropriate: allergies, current medications, past family history, past medical history, past social history, past surgicalhistory and problem list. Review of Systems Patient's Medications New Prescriptions No medications on file Previous Medications ALBUTEROL (PROVENTIL) 2.5 MG /3 ML (0.083 %) NEBULIZER SOLUTION Take 2.5 mg by nebulization 2 (two)times a day And as needed . ALLOPURINOL (ZYLOPRIM) 100 MG TABLET Take 100 mg by mouth 2 (two) times a day . ASCORBATE CALCIUM (VITAMIN C ORAL) Take 500 mg by mouth daily. ASPIRIN ORAL Take 162 mg by mouth daily Doing for a month post knee repalcement . FUROSEMIDE (LASIX) 40 MG TABLET Take 1 (one) tablet (40 mg total) by mouth daily Take 1/2 tablet daily . GUAIFENESIN (MUCINEX) 1,200 MG TA12 Take 1,200 tablets by mouth daily . HYDRALAZINE (APRESOLINE) 25 MG TABLET Take 1 (one) tablet (25 mg total) by mouth 2 (two) times a day Take with a 50 mg tablet (total 75 mg) . MAGNESIUM OXIDE (MAG-OXIDE ORAL) Take 400 mg by mouth 2 (two) times a day MULTIVITAMIN ORAL Take 1 tablet by mouth daily. NITROGLYCERIN (NITROSTAT) 0.[address] 1 (one) tablet (0.4 mg total) under the tongue every 5 (five) minutes as needed for chest pain . SACUBITRIL-VALSARTAN (ENTRESTO) 97-103 MG PER TABLET Take 1 (one) tablet by mouth 2 (two) times a day . TACROLIMUS (PROGRAF) 1 MG CAPSULE Take 1 mg by mouth 2 (two) times a day . Modified Medications Modified Medication Previous Medication CARVEDILOL (COREG) 25 MG TABLET carvediloL (COREG) 25 MG tablet Take 1 (one) tablet (25 mg total) by mouth 2 (two) times a day . Take 1 tablet by mouth twice daily OMEPRAZOLE (PRILOSEC) 20 MG CAPSULE omeprazole (PRILOSEC) 20 MG capsule Take 1 (one) capsule (20 mg total) by mouth daily as needed . Take 1 (one) capsule (20 mg total) bymouth daily as needed . ROSUVASTATIN (CRESTOR) 10 MG TABLET rosuvastatin (Crestor) 10 MG tablet Take 1 (one) tablet (10 mg total) by mouth at bedtime Recent increase per Pcp from 5 mg . Take 1 (one) tablet (10 mg total) by mouth at bedtime Recent increase per Pcp from 5 mg . Discontinued Medications No medications on file Assessment/Plan: Problem List Items Addressed This Visit Cardiovascular and Mediastinum Essential hypertension His blood pressure control is adequate on his current regimen. No changes were made today. Coronary artery disease involving [place] coronary artery of [place] heart without angina pectoris - Primary He has no angina no other symptoms suggestive of progressive ischemic disease. Relevant Medications rosuvastatin (Crestor) 10 MG tablet carvediloL (COREG) 25 MG tablet CHF (congestive heart failure) ([facility]) I am extremely pleased with how well it is doing from a heart failure standpoint on his current regimen. He remains very functional, very compliant and at this point minimally symptomatic. I stressedthe importance of medication compliance as well as following his weight on a daily basis and contacting us should he have any issues. I made no changes in his regimen today. Relevant Medications rosuvastatin (Crestor) 10 MG tablet carvediloL (COREG) 25 MG tablet Genitourinary Chronic kidney disease His renal function remains quite stable despite his fairly aggressive heart failure regimen. We will continue to follow this on a routine basis. Other Hyperlipidemia Relevant Medications rosuvastatin (Crestor) 10 MG tablet I have spent 8 minutes with the patient reviewing the HPI and Plan of Care. documented in this encounter* Leonila Walls RN - 06/19/2020 1:10 PM EDT Heart Disease Management Nurse Progress Note [facility] 06/19/20 Minh Gonzalez 1945 Congestive Heart Failure (HFC visit) Minh Gonzalez is a 74 y.o. year-old male seen today in the Heart Disease Management Clinic for follow up. He has no new HF symptoms today Last echo date: 04/2018, stress 07/20/18, 10/26/18 Ejection fraction: 39-40%, 40-45% Physician Communication: None today Subjective/Objective Vitals: 06/19/20 1040 BP: 147/79 BP Location: Left arm Patient Position: Sitting BP Cuff Size: Adult Pulse: 62 Resp: 16 SpO2: 94% Weight: 92.4 kg (203 lb 12.8 oz) Weight is 203.8 here but 200 pounds at home, which has been steady General: feeling good today Psych: calm Breath Sounds: Clear throughout SOB: with exertion, denies any orthopnea, PND, persistent cough or difficulty sleeping. Heart Sounds:regular Skin: WNL Edema: No edema noted today, no JVD GI/: WNL Activity/Diet: normal activities of daily living sodium restriction adherence: yes, most of the time Fluid restriction adherence: Yes NYHA Functional Classification: Class II: Slight limitation of physical activity. Lab Drawn: Blood work recently through kidney doc Assessment & Plan Minh was seen today in the congestive heart failure clinic. He is doing well and feeling ok. He said he is able to keep the fluid off as long as he takes his Lasix 40 mg morn and 20 mg jessica. Kidney numbers were up last blood work completed in May. His kidney doc was going to reach out to Dr. Ramirez about maybe lowering his Entresto dose. Ed is on the high dose currently. Ed is active has someshortness of breath at times, difficult to distinguish between HF and COPD. Will continue to monitor kidneys through his Javascript Ui Developer. Diagnoses and all orders for this visit: Therapeutic drug monitoring - Ambulatory referral to Heart Failure Clinic Recommendation for home daily weights with a reminder to call with weight gain >3 pounds, increased shortness of breath, waking up at night short of breath, increase in swelling, getting tired faster, urinating less frequently, dizziness or lightheadedness. Goals (plan of care) for next visit: 1. CHF Assessment 2. Monitor BP and HR 3. Maintain weight Medications administered this Visit Follow-Up: Return in about 2 months (around 08/19/2020). Leonila Walls RN documented in this encounter Advance Directives Latest Code Status on File Code Status Date Activated Date Inactivated Comments Full Code 12/31/2014 2:30 PM 01/01/2015 5:58 PM Full Code 12/30/2014 8:17 PM 12/31/2014 2:30 PM Full Code 12/30/2014 5:11 PM 12/30/2014 8:17 PM Full Code 08/11/2014 8:56 AM 08/11/2014 4:01 PM Latest Code Status on File Code Status Date Activated Date Inactivated Comments Full Code 12/31/2014 2:30 PM 01/01/2015 5:58 PM Full Code 12/30/2014 8:17 PM 12/31/2014 2:30 PM Full Code 12/30/2014 5:11 PM 12/30/2014 8:17 PM Full Code 08/11/2014 8:56 AM 08/11/2014 4:01 PM Documents on File Type Date Recorded Patient Trailer Park Manager Expl anation Advance Directives and Livin g Will Advance Directives and Livin g Will 05/04/2018 12:00 AM Documents on File Type Date Recorded Patient Trailer Park Manager Expl anation Advance Directives and Livin g Will Advance Directives and Livin g Will 05/04/2018 12:00 AM Documents on File Type Date Recorded Patient Trailer Park Manager Expl anation Advance Directives and Livin g Will Advance Directives and Livin g Will 09/15/2020 8:49 AM Latest Code Status on File Code Status Date Activated Date Inactivated Comments Full Code 09/04/2020 1:22 PM 09/10/2020 1:54 PM Full Code 09/03/2020 11:05 AM 09/04/2020 1:22 PM Full Code - Unverified 08/26/2020 2:36 PM 09/03/2020 11: 05 AM Full Code 12/31/2014 2:30 PM 01/01/2015 5:58 PM Documents on File Type Date Recorded Patient Trailer Park Manager Expl anation Advance Directives and Livin g Will Advance Directives and Livin g Will 10/26/2020 9:39 AM Latest Code Status on File Code Status Date Activated Date Inactivated Comments Full Code 09/04/2020 1:22 PM 09/10/2020 1:54 PM Full Code 09/03/2020 11:05 AM 09/04/2020 1:22 PM Full Code - Unverified 08/26/2020 2:36 PM 09/03/2020 11: 05 AM Full Code 12/31/2014 2:30 PM 01/01/2015 5:58 PM Documents on File Type Date Recorded Patient Trailer Park Manager Expl anation Advance Directives and Livin g Will Advance Directives and Livin g Will 10/26/2020 9:39 AM Documents on File Type Date Recorded Patient Trailer Park Manager Expl anation Advance Directives and Livin g Will Advance Directives and Livin g Will 11/23/2020 2:00 PM Documents on File Type Date Recorded Patient Trailer Park Manager Expl anation Advance Directives and Livin g Will Advance Directives and Livin g Will 11/23/2020 2:00 PM Documents on File Type Date Recorded Patient Trailer Park Manager Expl anation Advance Directives and Livin g Will Advance Directives and Livin g Will 01/13/2021 2:47 PM Documents on File Type Date Recorded Patient Trailer Park Manager Expl anation Advance Directives and Livin g Will Advance Directives and Livin g Will 01/13/2021 2:47 PM Documents on File Type Date Recorded Patient Trailer Park Manager Expl anation Advance Directives and Livin g Will Advance Directives and Livin g Will 01/18/2021 2:47 PM Latest Code Status on File Code Status Date Activated Date Inactivated Comments Full Code 01/18/2021 9:08 AM Full Code 09/04/2020 1:22 PM 09/10/2020 1:54 PM Latest Code Status on File Code Status Date Activated Date Inactivated Comments Full Code 01/18/2021 9:08 AM 01/19/2021 5:39 PM Documents on File Type Date Recorded Patient Trailer Park Manager Expl anation Advance Directives and Livin g Will Advance Directives and Livin g Will 01/18/2021 2:47 PM Latest Code Status on File Code Status Date Activated Date Inactivated Comments Full Code 01/18/2021 9:08 AM 01/19/2021 5:39 PM Full Code 09/04/2020 1:22 PM 09/10/2020 1:54 PM Documents on File Type Date Recorded Patient Trailer Park Manager Expl anation Advance Directives and Livin g Will Advance Directives and Livin g Will 02/03/2021 2:47 PM Documents on File Type Date Recorded Patient Trailer Park Manager Expl anation Advance Directives and Livin g Will Advance Directives and Livin g Will 02/03/2021 2:47 PM Documents on File Type Date Recorded Patient Trailer Park Manager Expl anation Advance Directives and Living Will Advance Directives and Living Will 02/22/2021 2:47 PM NO COPY IN SOARIAN Documents on File Type Date Recorded Patient Trailer Park Manager Expl anation Advance Directives and Living Will Advance Directives and Living Will 02/22/2021 2:47 PM NO COPY IN SOARIAN Latest Code Status on File Date Activated Date Inactivated Comments 01/18/2021 9:08 AM 01/19/2021 5:39 PM Full Code Date Activated Date Inactivated Comments 09/04/2020 1:22 PM 09/10/2020 1:54 PM Full Code Date Activated Date Inactivated Comments 09/03/2020 11:05 AM 09/04/2020 1:22 PM Full Code - Unverified Date Activated Date Inactivated Comments 08/26/2020 2:36 PM 09/03/2020 11:05 AM Full Code Date Activated Date Inactivated Comments 12/31/2014 2:30 PM 01/01/2015 5:58 PM Latest Code Status on File Code Status Date Activated Date Inactivated Comments Full Code 01/18/2021 9:08 AM 01/19/2021 5:39 PM Code Status History Code Status Date Activated Date Inactivated Comments Full Code 09/04/2020 1:22 PM 09/10/2020 1:54 PM Full Code 09/03/2020 11:05 AM 09/04/2020 1:22 PM Full Code - Unverified 08/26/2020 2:36 PM 09/03/2020 11: 05 AM Full Code 12/31/2014 2:30 PM 01/01/2015 5:58 PM Latest Code Status on File Code Status Date Activated Date Inactivated Comments Full Code 01/18/2021 9:08 AM 01/19/2021 5:39 PM Code Status History Code Status Date Activated Date Inactivated Comments Full Code 09/04/2020 1:22 PM 09/10/2020 1:54 PM Full Code 09/03/2020 11:05 AM 09/04/2020 1:22 PM Full Code - Unverified 08/26/2020 2:36 PM 09/03/2020 11: 05 AM Full Code 12/31/2014 2:30 PM 01/01/2015 5:58 PM Documents on File Type Date Recorded Patient Trailer Park Manager Expl anation Power of [employer] Latest Code Status on File Code Status Date Activated Date Inactivated Comments Full Code 04/26/2022 2:29 PM 04/30/2022 2:32 PM Code Status History Code Status Date Activated Date Inactivated Comments Full Code 01/18/2021 9:08 AM 01/19/2021 5:39 PM Full Code 09/04/2020 1:22 PM 09/10/2020 1:54 PM Full Code 09/03/2020 11:05 AM 09/04/2020 1:22 PM Full Code - Unverified 08/26/2020 2:36 PM 09/03/2020 11: 05 AM Documents on File Type Date Recorded Patient Trailer Park Manager Expl anation 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 of 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 [employer]chard Latest Code Status on File Code Status Date Activated Date Inactivated Comments Full Code 04/26/2022 2:29 PM 04/30/2022 2:32 PM Code Status History Code Status Date Activated Date Inactivated Comments Full Code 01/18/2021 9:08 AM 01/19/2021 5:39 PM Full Code 09/04/2020 1:22 PM 09/10/2020 1:54 PM Full Code 09/03/2020 11:05 AM 09/04/2020 1:22 PM Full Code - Unverified 08/26/2020 2:36 PM 09/03/2020 11: 05 AM Instructions Name Dates Details Instructions not documented Name Dates Details Instructions not documented Summary Purpose Family History Cerebrovascular Accident Status:Active Comment s:Mother. Congestive Heart Failure Status:Active Comment s:Sister. Coronary Artery Disease Status:Active Comments :Father. Diabetes Mellitus Type II Status:Active Commen ts:Sister. Hodgkin's disease(C81.90) (201.90) Status:Active Comments:Father. Hypertension Status:Active Comments:Mother. Osteoarthritis Status:Active Comments:Mother. Father. Cerebrovascular Accident Status:Active Comment s:Mother. Congestive Heart Failure Status:Active Comment s:Sister. Coronary Artery Disease Status:Active Comments :Father. Diabetes Mellitus Type II Status:Active Commen ts:Sister. Hodgkin's disease(C81.90) (201.90) Status:Active Comments:Father. Hypertension Status:Active Comments:Mother. Osteoarthritis Status:Active Comments:Mother. Father. Cerebrovascular Accident Status:Active Comment s:Mother. Congestive Heart Failure Status:Active Comment s:Sister. Coronary Artery Disease Status:Active Comments :Father. Diabetes Mellitus Type II Status:Active Commen ts:Sister. Hodgkin's disease(C81.90) (201.90) Status:Active Comments:Father. Hypertension Status:Active Comments:Mother. Osteoarthritis Status:Active Comments:Mother. Father. Cerebrovascular Accident Status:Active Comment s:Mother. Congestive Heart Failure Status:Active Comment s:Sister. Coronary Artery Disease Status:Active Comments :Father. Diabetes Mellitus Type II Status:Active Commen ts:Sister. Hodgkin's disease(C81.90) (201.90) Status:Active Comments:Father. Hypertension Status:Active Comments:Mother. Osteoarthritis Status:Active Comments:Mother. Father. Cerebrovascular Accident Status:Active Comment s:Mother. Congestive Heart Failure Status:Active Comment s:Sister. Coronary Artery Disease Status:Active Comments :Father. Diabetes Mellitus Type II Status:Active Commen ts:Sister. Hodgkin's disease(C81.90) (201.90) Status:Active Comments:Father. Hypertension Status:Active Comments:Mother. Osteoarthritis Status:Active Comments:Mother. Father. Cerebrovascular Accident Status:Active Comment s:Mother. Congestive Heart Failure Status:Active Comment s:Sister. Coronary Artery Disease Status:Active Comments :Father. Diabetes Mellitus Type II Status:Active Commen ts:Sister. Hodgkin's disease(C81.90) (201.90) Status:Active Comments:Father. Hypertension Status:Active Comments:Mother. Osteoarthritis Status:Active Comments:Mother. Father. Cerebrovascular Accident Status:Active Comment s:Mother. Congestive Heart Failure Status:Active Comment s:Sister. Coronary Artery Disease Status:Active Comments :Father. Diabetes Mellitus Type II Status:Active Commen ts:Sister. Hodgkin's disease(C81.90) (201.90) Status:Active Comments:Father. Hypertension Status:Active Comments:Mother. Osteoarthritis Status:Active Comments:Mother. Father. Cerebrovascular Accident Status:Active Comment s:Mother. Congestive Heart Failure Status:Active Comment s:Sister. Coronary Artery Disease Status:Active Comments :Father. Diabetes Mellitus Type II Status:Active Commen ts:Sister. Hodgkin's disease(C81.90) (201.90) Status:Active Comments:Father. Hypertension Status:Active Comments:Mother. Osteoarthritis Status:Active Comments:Mother. Father. Additional Source Comments Reason for Visit (unrecogniz ed section and content) Status Reason Specialty Diagnoses / Procedures Referre d By Contact Referred To Contact Closed Cardiology Diagnoses Coronary artery disease involving [place] coronary artery of [place] heart without angina pectoris Essential hypertension Ventricular tachycardia (paroxysmal) (HCC) Procedures Echocardiogram complete Lenin Ramirez MD [address] [facility] [address] [place] [address] Reason Comments Follow-up s/p d/c [facility]. new ons et CHF Medication Management pt is to start Exf orge 5/320 mg tablet. 1 tablet PO QD Status Reason Specialty Diagnoses / Procedures Referre d By Contact Referred To Contact Closed Radiology Diagnoses ELLIOTT (dyspnea on exertion) Procedures NM Myocardial Perfusion Multiple SPECT Lenin Ramirez MD [address] [facility] [address] [place] [address] Reason Comments Follow-up abn SPECT. Hypertension pt states BP has bee n high at home since starting the Exforge Reason Comments Congestive Heart Failure H[facility] visit Reason Comments Congestive Heart Failure HC visit Reason Comments Congestive Heart Failure HFC Status Reason Specialty Diagnoses / Procedures Referre d By Contact Referred To Contact Closed Cardiology Diagnoses ELLIOTT (dyspnea on exertion) Procedures Echocardiogram complete Park Hawk, HIM CODER [address] [facility] [address] [place] [address] Reason Comments Follow-up 6 mo f/u. no complai nts. Medications reviewed- no refills at this time Reason Onset Date Comments Medication Refill 04/02/2020 Reason Onset Date Comments Medication Refill 04/10/2020 Reason Comments Follow-up Congestive Heart Failure Reason Onset Date Comments Medication Refill 07/27/2020 Reason Comments Congestive Heart Failure [facility] visit Reason Comments Follow-up 6 wk S/P openheart S tarted back on O2 at home aboue 1.5 wk ago Reason Comments Follow-up increased SOB ankles and lower legs swollen but not as bad as they have been Reason Comments Follow-up 6 mo Reason Comments Follow-up go over Xray Liliana SOB/ - Booster? Dr Ramirez said not to last time he had the Moderna Restless legs per James possibly remove the AMIO Melationin did not work Specialty Diagnoses / Procedures Referred By Contac t Referred To Contact Cardiothoracic Surgery Diagnoses Bilateral pleural effusion Park Hawk, HIM CODER [address] [place] [address] Michael Quinn MD [address] [place] [address] Referral ID Status Reason Start Date Expiration Date V isits Requested Visits Authorized [id number] Closed Specialty Services Required/Khalida ent's Best Interest 01/04/2021 01/04/2022 1 1 Reason Onset Date Comments Medication Refill 03/01/2021 Reason Onset Date Comments Medication Refill 04/12/2021 Reason Onset Date Comments Medication Refill 04/13/2021 Reason Onset Date Comments Medication Refill 04/29/2021 medication samples 04/29/2021 Eliquis 5mg s amples Reason Onset Date Comments Medication Refill 08/06/2021 Reason Comments Follow-up Pt had ekg on 2021 Reason Onset Date Comments Verquvo cost 09/01/2021 Reason Onset Date Comments Medication Refill 09/23/2021 Reason Onset Date Comments Medication Refill 11/10/2021 Reason Onset Date Comments Medication Refill 04/04/2022 Reason Comments cecal mass Specialty Diagnoses / Procedures Referred By Alisson gallegos Referred To Contact General Surgery Diagnoses Adenocarcinoma (HCC) System, Provider Not In Sherry George, DO [address] [place] [address] Referral ID Status Reason Start Date Expiration Date Visits Re quested Visits Authorized [id number] Closed 03/23/2022 03/23/2023 1 1 Reason Comments Fatigue Specialty Diagnoses / Procedures Referred By Alisson gallegos Referred To Contact Referral ID Status Reason Start Date Expiration Date Visits Re quested Visits Authorized [id number] 1 1 Reason Comments Medication Refill Reason Comments Follow-up Regular follow up. Mabel castellanos with list pt brought Reason Onset Date Comments Medication Refill Amiodarone 200 DC'd 07/23/2022 Amiodarone 2 00mg was DC'd Reason Onset Date Comments Medication Refill 10/25/2022 Reason Onset Date Comments Medication Refill 11/03/2022 Amiodarone 100 was sent to the wrong pharmacy Reason Comments Other 3 month f/u CT CEA C BC Assessment & Plan Note - Lenin Ramirez MD - 05/03/2018 1:28 PM ESTAssessment & Plan Note - Lenin Ramirez MD - 05/03/2018 1:27 PM EST Miscellaneous Notes (unrecog nized section and content) Associated Problem(s): Dyspnea on exertion At apparently experienced an upper respiratory infection in late January and since that time is complained of significant and limiting exertional dyspnea. I reviewed his CT and chest x-ray results which were obviously concerning. He is scheduled to see a rabies inspector next week to have this evaluated further. In the interim, I did arrange for an echocardiogram to reevaluate his ventricular function but made no changes in his regimen. Associated Problem(s): Hyperlipidemia He remains on high potency statin therapy which she tolerates well at his current dose with adequate lipid results. No changes were made today Associated Problem(s): Essential hypertension His blood pressure was mildly elevated in the office however apparently has been well controlled at home on his current regimen. I made no changes in his medications today. Associated Problem(s): Coronary artery disease involving [place] coronary artery of [place] heart without angina pectoris As ischemic status has been relatively stable. He has had no recent angina and no nitroglycerin use. He remains compliant with his medicines and I made no changes today. in this encounter Associated Problem(s): Essential hypertension As blood pressure was excellent today. No changes were made in his regimen. Associated Problem(s): CHF (congestive heart failure) (HCC) Following his recent hospitalization and diuresis his fluid status appears improved. His renal function did deteriorate slightly during his hospitalization but hopefully will stabilize. I made no changes in his medicines however did arrange to have his renal function reevaluated within the next several weeks. Associated Problem(s): Coronary artery disease involving [place] coronary artery of [place] heart without angina pectoris Ed continues doing well from an ischemic standpoint with no angina no EKG evidence of disease progression. I made no changes in his regimen today. in this encounter Associated Problem(s): CHF (congestive heart failure) (HCC) Hospitalized at [facility] earlier this year with successful diuresis. Known CKD, stage 3 and follows with Nephrology, Dr. Christiansen, in [place]. Recent stress testing revealed substantial decline in EF. Ed states he does have ELLIOTT, now with moderate exertion, it has improved from the ELLIOTT he was experiencing with minimal exertion. Ed continues to have bilateral lower leg edema which improves overnight and increases as his day goes on. He is wearing compression stockings daily. 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 Holter 06/2018 revealed very frequent PVC's with brief episodes NSVT and PAT. Discussed at length with Ed and his regarding HF, treatment options, limiting sodium, daily monitoring of weight and B/P. Will plan on having Ed follow in the Heart Failure Clinic. Medication changes: Stop Exforge, start Entresto 24-26 mg twice daily. Change from Lopressor to Coreg 6.25 mg twice daily. Will evaluate for adding Aldactone over the next several weeks by trending renal function. Concerned about cost of Entresto. Ed was given 1 month free trial card. Will follow up with thread checker patient assistance program. Associated Problem(s): MARCELO on CPAP Currently using CPAP. States is struggling to adjust to the device. Is using a nasal pillow. I suggested that he contact the [employer] company to discuss other device options to improve his comfort and compliance. Associated Problem(s): Coronary artery disease involving [place] coronary artery of [place] heart without angina pectoris Long-standing CAD with Hx MD in 2005 Cath 2015: Discrete 40% proximal lesion in LAD Diffuse 25% proximal lesion in circumflex Diffuse 25% proximal lesion in RCA Ventricular Function: LV Gram- 55% EF with normal wall motion Valve Function: Valve functions within normal limits Current medications include: Crestor, NTG PRN (has not needed), metoprolol, ASA, Exforge Has chronic ELLIOTT with moderate exertion. Ed states he feels it has improved since his hospitalization for heart failure earlier this year. Denies chest pain/pressure, palpitations, orthopnea, PND, lightheadedness, syncope or near-syncopal episodes. Stress test 07/20/2018: Essentially unchanged from 2015. LV function decreased from 50% to 39-40%, likely secondary to LV remodeling. Associated Problem(s): Essential hypertension B/P above goal 152/78, 163/72. Monitors B/P at home almost daily and states has noticed a trend in increasing B/P. Current medications include: Lopressor 25 mg daily, Exforge 5-320 mg daily. Will plan on making medication adjustments relative to decreased EF and continue to monitor B/P closely. documented in this encounter Associated Problem(s): Hyperlipidemia He remains on high potency statin therapy with adequate lipid levels. No changes were made today. Associated Problem(s): Essential hypertension His blood pressure was mildly elevated today in the office. His Entresto was increased he will continue to follow his pressures at home. Associated Problem(s): CHF (congestive heart failure) ([facility]) His most recent echocardiogram demonstrated stable left ventricular systolic function with ejection fraction in the range of 40 to 45%. Given his elevated blood pressure I did increase his Entresto to 97-103 mg twice daily but made no other changes in his medicines. Associated Problem(s): Coronary artery disease involving [place] coronary artery of [place] heart without angina pectoris He continues doing well from an ischemic standpoint with no angina or other associated ischemic symptoms. I reviewed his medicines and made no changes. documented in this encounter Received refill request for sacubitriL-valsartan (Entresto) 97-103 mg per tablet. Pt was last seen 03/26/2020 and is on recall for follow up. documented in this encounter Associated Problem(s): CHF (congestive heart failure) (HCC) Ed's stress test in July 2018 showed substantial decline in EF. He has been seen in the Heart Failure Clinic for intensive management of his symptoms. His weight has trended down and bilateral lower leg edema is improved, though still present. His energy has improved even though he states he doesn't have th energy he had years ago . He admits that he is feeling better. He denies orthopnea or PND. He sleeps with 3 pillows for back comfort and not breathing difficulty. 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 He denies syncope or near-syncopal episodes. Ed did not tolerate Aldactone due to increasing K+ and creatinine. He has known CKD. Current medications inclode: Entresto 24-26 mg twice daily and Coreg 6.25 mg twice daily. Will increase Entresto to 49-51 mg and assess tolerance. Reviewed SE of dizziness and hypotension with Ed and his as potential with increased dose. He will start the higher dose next week when he will be off due to the holiday. Ed has a follow up Heart Failure visit on September 21. Will check BMP at that time. Associated Problem(s): Coronary artery disease involving [place] coronary artery of [place] heart without angina pectoris Long-standing CAD with stress testing in 2019 revealing substantial decline in EF, most likely secondary to LV remodeling. Ed states he doesn't have the same stamina he had years ago but denies chest pain/pressure, dyspnea with ADL's, palpitations, orthopnea, PND, syncope or near-syncopal episodes. He denies any use of NTG. Medications include: ASA, BB, statin Associated Problem(s): Essential hypertension Reviewed home B/P log. IIs checking his readings twice daily and is generally in the 130-140's/60-70's. Ed has some isolated readings of systolic readings in the 150-160's however he also has frequent PVC's which may be making his readings inaccurate. Current medications include: Entresto 24-26 mg, Lasix 40 mg, Coreg 6.25 mg, Ed did not tolerate Aldactone due to increased K+ and creatinine and quite bothersome diarrhea. Associated Problem(s): MARCELO on CPAP Using CPAP nightly though admits that he does not like and takes it off sometimes through the night. Will continue to work on adjusting to his new mask. He currently is on the 3rd different style of mask. documented in this encounter Associated Problem(s): Chronic kidney disease His renal function remains quite stable despite his fairly aggressive heart failure regimen. We will continue to follow this on a routine basis. Associated Problem(s): Coronary artery disease involving [place] coronary artery of [place] heart without angina pectoris He has no angina no other symptoms suggestive of progressive ischemic disease. Associated Problem(s): Essential hypertension His blood pressure control is adequate on his current regimen. No changes were made today. Associated Problem(s): CHF (congestive heart failure) (HCC) I am extremely pleased with how well it is doing from a heart failure standpoint on his current regimen. He remains very functional, very compliant and at this point minimally symptomatic. I stressed the importance of medication compliance as well as following his weight on a daily basis and contacting us should he have any issues. I made no changes in his regimen today. documented in this encounter Muna Ozuna RN - 07/20/2018 9:42 AM EDT Nursing Notes (unrecognized section and content) Resting ECG 1st degree AVB. Tolerated lexican well, denies CP with medication. documented in this encounter (unrecognized sect ion and content) No Status Records FoundNo Status Records FoundNo Status Records FoundNo Status Records FoundNo Status Records FoundNo Status Records FoundNo Status Records FoundNo Status Records FoundNo Status Records FoundNo Status Records FoundNo Status Records FoundNo Status Records FoundNo Status Records Found INFORMATION SOURCE (unrecogn ized section and content) DATE CREATED AUTHOR AUTHOR'S ORGANIZ ATION 06/07/2019 [facility] DATE CREATED AUTHOR AUTHOR'S ORGANIZ ATION 10/04/2019 [facility] DATE CREATED AUTHOR AUTHOR'S ORGANIZ ATION 08/07/2020 [facility] DATE CREATED AUTHOR AUTHOR'S ORGANIZ ATION 05/08/2021 [facility] DATE CREATED AUTHOR AUTHOR'S ORGANIZ ATION 05/23/2021 [facility] DATE CREATED AUTHOR AUTHOR'S ORGANIZ ATION 08/06/2021 [facility] DATE CREATED AUTHOR AUTHOR'S ORGANIZ ATION 11/24/2021 [facility] DATE CREATED AUTHOR AUTHOR'S ORGANIZ ATION 05/01/2022 [facility] DATE CREATED AUTHOR AUTHOR'S ORGANIZ ATION 12/01/2022 [facility] DATE CREATED AUTHOR AUTHOR'S ORGANIZ ATION 12/04/2022 [facility] DATE CREATED AUTHOR AUTHOR'S ORGANIZ ATION 03/23/2023 [facility] DATE CREATED AUTHOR AUTHOR'S ORGANIZ ATION 03/26/2023 [facility] Care Teams (unrecognized sec tion and content) Diesel Service Technician Relationship Specialty Start Date End Date Zack Olmos MD [address] [place] [address] [phone] PCP - General Family Medicine 08/11/14 Diesel Service Technician Relationship Specialty Start Date End Date Zack Olmos MD [address] [place] [address] [phone] PCP - General Family Medicine 08/11/14 Diesel Service Technician Relationship Specialty Start Date End Date Zack Olmos MD [address] [place] [address] PCP - General Family Medicine 08/11/14 Diesel Service Technician Relationship Specialty Start Date End Date Zack Olmos MD [address] [place] [address] [id number] PCP - General Family Medicine 08/11/14 Diesel Service Technician Relationship Specialty Start Date End Date Zack Olmos MD [address] [place] [address] [phone] PCP - General Family Medicine 08/11/14 Diesel Service Technician Relationship Specialty Start Date End Date Zack Olmos MD [address] [place] [address] [id number] PCP - General Family Medicine 08/11/14 Diesel Service Technician Relationship Specialty Start Date End Date Zack Olmos MD [address] [place] [address] [phone] PCP - General Family Medicine 08/11/14 Diesel Service Technician Relationship Specialty Start Date End Date Zack Olmos MD [address] [place] [address] [phone] PCP - General Family Medicine 08/11/14 Diesel Service Technician Relationship Specialty Start Date End Date Zack Olmos MD [address] [place] [address] [phone] PCP - General Family Medicine 08/11/14 Diesel Service Technician Relationship Specialty Start Date End Date Zack Olmos MD [address] [place] [address] [phone] PCP - General Family Medicine 08/11/14 Diesel Service Technician Relationship Specialty Start Date End Date Zack Olmos MD [address] [place] [address] [phone] PCP - General Family Medicine 08/11/14 Diesel Service Technician Relationship Specialty Start Date End Date Zack Olmos MD [address] [place] [address] [id number] PCP - General Family Medicine 08/11/14 Diesel Service Technician Relationship Specialty Start Date End Date Zack Olmos MD [address] [place] [address] [phone] PCP - General Family Medicine 08/11/14 Diesel Service Technician Relationship Specialty Start Date End Date Zack Olmos MD [address] [place] [address] [id number] PCP - General Family Medicine 08/11/14 Diesel Service Technician Relationship Specialty Start Date End Date Zack Olmos MD [address] [place] [address] [phone] PCP - General Family Medicine 08/11/14 Diesel Service Technician Relationship Specialty Start Date End Date Zack Olmos MD [address] [place] [address] [phone] PCP - General Family Medicine 08/11/14 Diesel Service Technician Relationship Specialty Start Date End Date Zack Olmos MD [address] [place] [address] [id number] PCP - General Family Medicine 08/11/14 Diesel Service Technician Relationship Specialty Start Date End Date Zack Olmos MD [address] [place] [address] [id number] PCP - General Family Medicine 08/11/14 Diesel Service Technician Relationship Specialty Start Date End Date Zack Olmos MD [address] [place] [address] [phone] PCP - General Family Medicine 08/11/14 Diesel Service Technician Relationship Specialty Start Date End Date Zack Olmos MD [address] [place] [address] 96708 PCP - General Family Medicine 08/11/14 Diesel Service Technician Relationship Specialty Start Date End Date Zack Olmos MD [address] [place] [address] 81125 PCP - General Family Medicine 08/11/14 Diesel Service Technician Relationship Specialty Start Date End Date Zack Olmos MD [address] [place] [address] 80032 PCP - General Family Medicine 08/11/14 Diesel Service Technician Relationship Specialty Start Date End Date Zack Olmos MD [address] [place] [address] 13355 PCP - General Family Medicine 08/11/14 Diesel Service Technician Relationship Specialty Start Date End Date Zack Olmos MD [address] [place] [address] 55563 PCP - General Family Medicine 08/11/14 Diesel Service Technician Relationship Specialty Start Date End Date Zack Olmos MD [address] [place] [address] 21523 PCP - General Family Medicine 08/11/14 Diesel Service Technician Relationship Specialty Start Date End Date Zack Olmos MD [address] [place] [address] 86470 PCP - General Family Medicine 08/11/14 Diesel Service Technician Relationship Specialty Start Date End Date Zack Olmos MD [address] [place] [address] 85959 PCP - General Family Medicine 08/11/14 Diesel Service Technician Relationship Specialty Start Date End Date Zack Olmos MD [address] [place] [address] 58518 PCP - General Family Medicine 08/11/14 Diesel Service Technician Relationship Specialty Start Date End Date Zack Olmos MD [address] [place] [address] 22524 PCP - General Family Medicine 08/11/14 Diesel Service Technician Relationship Specialty Start Date End Date Zack Olmos MD [address] [place] [address] 96190 PCP - General Family Medicine 08/11/14 Diesel Service Technician Relationship Specialty Start Date End Date Zack Olmos MD [address] [place] [address] 10222 PCP - General Family Medicine 08/11/14 Diesel Service Technician Relationship Specialty Start Date End Date Zack Olmos MD [address] [place] [address] PCP - General Family Medicine 08/11/14 Андрей Pizano MD [address] [facility] [id number] [place] [address] Referring Physician General Surgery 03/22/22 Diesel Service Technician Relationship Specialty Start Date End Date Zack Olmos MD [address] [place] [address] PCP - General Family Medicine 08/11/14 Lenin Ramirez MD [address] [place] [address] Consulting Physician Interventional Cardiology 04/06/22 Sherry George DO [address] [place] [address] Consulting Physician General Surgery 04/06/22 Андрей Pizano MD [address] [facility] [id number] [place] [address] Referring Physician General Surgery 03/22/22 Diesel Service Technician Relationship Specialty Start Date End Date Zack Olmos MD [address] [place] [address] PCP - General Family Medicine 08/11/14 Lenin Ramirez MD [address] [place] [address] Consulting Physician Interventional Cardiology 04/06/22 Sherry George DO [address] [place] [address] Consulting Physician General Surgery 04/06/22 Андрей Pizano MD [address] [facility] [id number] [place] [address] Referring Physician General Surgery 03/22/22 Diesel Service Technician Relationship Specialty Start Date End Date Zack Olmos MD [address] [place] [address] PCP - General Family Medicine 08/11/14 Lenin Ramirez MD [address] [place] [address] Consulting Physician Interventional Cardiology 04/06/22 Sherry George DO [address] [place] [address] Consulting Physician General Surgery 04/06/22 Андрей Pizano MD [address] [facility] [id number] [place] [address] Referring Physician General Surgery 03/22/22 Diesel Service Technician Relationship Specialty Start Date End Date Zack Olmos MD [address] [place] [address] PCP - General Family Medicine 08/11/14 Lenin Ramirez MD [address] [place] [address] Consulting Physician Interventional Cardiology 04/06/22 Sherry George DO [address] [place] [address] Consulting Physician General Surgery 04/06/22 Андрей Pizano MD [address] [facility] [id number] [place] [address] Referring Physician General Surgery 03/22/22 Diesel Service Technician Relationship Specialty Start Date End Date Zack Olmos MD [address] [place] [address] PCP - General Family Medicine 08/11/14 Lenin Ramirez MD [address] [place] [address] Consulting Physician Interventional Cardiology 04/06/22 Sherry George DO [address] [place] [address] Consulting Physician General Surgery 04/06/22 Андрей Pizano MD [address] [facility] [id number] [place] [address] Referring Physician General Surgery 03/22/22 Diesel Service Technician Relationship Specialty Start Date End Date Zack Olmos MD [address] [place] [address] 45130 PCP - General Family Medicine 08/11/14 Lenin Ramirez MD [address] [place] [address] Consulting Physician Interventional Cardiology 04/06/22 Sherry George, DO [address] [place] [address] Consulting Physician General Surgery 04/06/22 Андрей Pizano MD [address] [facility] [id number] [place] [address] Referring Physician General Surgery 03/22/22 Diesel Service Technician Relationship Specialty Start Date End Date Zack Olmos MD [address] [place] [address] 99681 PCP - General Family Medicine 08/11/14 Lenin Ramirez MD [address] [place] [address] Consulting Physician Interventional Cardiology 04/06/22 Sherry George DO [address] [place] [address] Consulting Physician General Surgery 04/06/22 Андрей Pizano MD [address] [facility] [id number] [place] [address] Referring Physician General Surgery 03/22/22 Diesel Service Technician Relationship Specialty Start Date End Date Zack Olmos MD [address] [place] [address] PCP - General Family Medicine 08/11/14 Lenin Ramirez MD [address] [facility] [address] [place] [address] Consulting Physician Interventional Cardiology 04/06/22 Sherry George DO [address] [place] [address] Consulting Physician General Surgery 04/06/22 Андрей Pizano MD [address] [facility] [id number] [place] [address] Referring Physician General Surgery 03/22/22 Diesel Service Technician Relationship Specialty Start Date End Date Zack Olmos MD [address] [place] [address] PCP - General Family Medicine 08/11/14 Lenin Ramirez MD [address] [facility] [address] [place] [address] Consulting Physician Interventional Cardiology 04/06/22 Sherry George DO [address] [place] [address] Consulting Physician General Surgery 04/06/22 Андрей Pizano MD [address] [facility] [id number] [place] [address] Referring Physician General Surgery 03/22/22 Diesel Service Technician Relationship Specialty Start Date End Date Zack Olmos MD [address] [place] [address] PCP - General Family Medicine 08/11/14 Lenin Ramirez MD [address] [place] [address] Consulting Physician Interventional Cardiology 04/06/22 Sherry George DO [address] [place] [address] Consulting Physician General Surgery 04/06/22 Андрей Pizano MD [address] [facility] [id number] [place] [address] Referring Physician General Surgery 03/22/22 Diesel Service Technician Relationship Specialty Start Date End Date Zack Olmos MD [address] [place] [address] PCP - General Family Medicine 08/11/14 Lenin Ramirez MD [address] [place] [address] Consulting Physician Interventional Cardiology 04/06/22 Sherry George DO [address] [place] [address] Consulting Physician General Surgery 04/06/22 Андрей Pizano MD [address] [facility] [id number] [place] [address] Referring Physician General Surgery 03/22/22 Diesel Service Technician Relationship Specialty Start Date End Date Zack Olmos MD [address] [place] [address] PCP - General Family Medicine 08/11/14 Lenin Ramirez MD [address] [place] [address] Consulting Physician Interventional Cardiology 04/06/22 Sherry George DO [address] [place] [address] Consulting Physician General Surgery 04/06/22 Андрей Pizano MD [address] [facility] [id number] [place] [address] Referring Physician General Surgery 03/22/22 Diesel Service Technician Relationship Specialty Start Date End Date Zack Olmos MD [address] [place] [address] PCP - General Family Medicine 08/11/14 Lenin Ramirez MD [address] [place] [address] Consulting Physician Interventional Cardiology 04/06/22 Sherry George DO [address] [place] [address] Consulting Physician General Surgery 04/06/22 Андрей Pizano MD [address] [facility] [id number] [place] [address] Referring Physician General Surgery 03/22/22 Diesel Service Technician Relationship Specialty Start Date End Date Zack Olmos MD [address] [place] [address] PCP - General Family Medicine 08/11/14 Lenin Ramirez MD [address] [facility] [address] [place] [address] Consulting Physician Interventional Cardiology 04/06/22 Sherry George DO [address] [place] [address] Consulting Physician General Surgery 04/06/22 Андрей Pizano MD [address] [facility] [id number] [place] [address] Referring Physician General Surgery 03/22/22 Diesel Service Technician Relationship Specialty Start Date End Date Zack Olmos MD [address] [place] [address] PCP - General Family Medicine 08/11/14 Lenin Ramirez MD [address] [facility] [address] [place] [address] Consulting Physician Interventional Cardiology 04/06/22 Sherry George DO [address] [place] [address] Consulting Physician General Surgery 04/06/22 Андрей Pizano MD [address] [facility] [id number] [place] [address] Referring Physician General Surgery 03/22/22 Diesel Service Technician Relationship Specialty Start Date End Date Zack Olmos MD [address] [place], [place] 582564 PCP - General Family Medicine 08/11/14 Lenin Ramirez MD [address] [facility] [address] [place] [address] Consulting Physician Interventional Cardiology 04/06/22 Sherry George DO [address] [place] [address] Consulting Physician General Surgery 04/06/22 Андрей Pizaon MD [address] [facility] [id number] [place] [address] Referring Physician General Surgery 03/22/22 Diesel Service Technician Relationship Specialty Start Date End Date Zack Olmos MD [address] [place] [address] PCP - General Family Medicine 08/11/14 Lenin Ramirez MD [address] [place] [address] Consulting Physician Interventional Cardiology 04/06/22 Sherry George DO [address] [place] [address] Consulting Physician General Surgery 04/06/22 Андрей Pizano MD [address] [facility] [id number] [place] [address] Referring Physician General Surgery 03/22/22 Diesel Service Technician Relationship Specialty Start Date End Date Zack Olmos MD [address] [place] [address] 14353 PCP - General Family Medicine 08/11/14 Lenin Ramirez MD [address] [place] [address] Consulting Physician Interventional Cardiology 04/06/22 Sherry George DO [address] [place] [address] Consulting Physician General Surgery 04/06/22 Андрей Pizano MD [address] [facility] [id number] [place] [address] Referring Physician General Surgery 03/22/22 Diesel Service Technician Relationship Specialty Start Date End Date Zack Olmos MD [address] [place] [address] PCP - General Family Medicine 08/11/14 Lenin Ramirez MD [address] [place] [address] Consulting Physician Interventional Cardiology 04/06/22 Sherry George DO [address] [place] [address] Consulting Physician General Surgery 04/06/22 Андрей Pizano MD [address] [facility] [id number] [place] [address] 879[address] Referring Physician General Surgery 03/22/22 Diesel Service Technician Relationship Specialty Start Date End Date Zack Olmos MD [address] [place] [address] PCP - General Family Medicine 08/11/14 Lenin Ramirez MD [address] [place] [address] Consulting Physician Interventional Cardiology 04/06/22 Sherry George DO [address] [place] [address] Consulting Physician General Surgery 04/06/22 Андрей Pizano MD [address] [facility] [id number] [place] [address] Referring Physician General Surgery 03/22/22 Diesel Service Technician Relationship Specialty Start Date End Date Zack Olmos MD [address] [place] [address] 08169 PCP - General Family Medicine 08/11/14 Lenin Ramirez MD [address] [facility] [address] [place] [address] Consulting Physician Interventional Cardiology 04/06/22 Sherry George DO [address] [place] [address] Consulting Physician General Surgery 04/06/22 Андрей Pizano MD [address] [facility] [id number] [place] [address] Referring Physician General Surgery 03/22/22 Diesel Service Technician Relationship Specialty Start Date End Date Zack Olmos MD [address] [place] [address] 77717 PCP - General Family Medicine 08/11/14 Lenin Ramirez MD [address] [facility] [address] [place] [address] Consulting Physician Interventional Cardiology 04/06/22 Sherry George DO [address] [place] [address] Consulting Physician General Surgery 04/06/22 Андрей Pizano MD [address] [facility] [id number] [place] [address] 544[address] Referring Physician General Surgery 03/22/22 Diesel Service Technician Relationship Specialty Start Date End Date Zack Olmos MD [address] [place] [address] PCP - General Family Medicine 08/11/14 Lenin Ramirez MD [address] [place] [address] Consulting Physician Interventional Cardiology 04/06/22 Sherry George DO [address] [place] [address] Consulting Physician General Surgery 04/06/22 Андрей Pizano MD [facility] [facility] [id number] [place] [address] 31547 Referring Physician General Surgery 03/22/22 Diesel Service Technician Relationship Specialty Start Date End Date Zack Olmos MD [address] [place] [address] PCP - General Family Medicine 08/11/14 Lenin Ramirez MD [address] [facility] [address] [place] [address] Consulting Physician Interventional Cardiology 04/06/22 Sherry George DO [address] [place] [address] Consulting Physician General Surgery 04/06/22 Андрей Pziano MD [address] [facility] [id number] [place] [address] 84865 Referring Physician General Surgery 03/22/22 Diesel Service Technician Relationship Specialty Start Date End Date Zack Olmos MD [address] [place] [address] 54485 PCP - General Family Medicine 08/11/14 Lenin Ramirez MD [address] [facility] [address] [place] [address] Consulting Physician Interventional Cardiology 04/06/22 Sherry George DO [address] [place] [address] Consulting Physician General Surgery 04/06/22 Андрей Pizano MD [address] [facility] [id number] [place] [address] 68054 Referring Physician General Surgery 03/22/22 Diesel Service Technician Relationship Specialty Start Date End Date Zack Olmos MD [address] [place] [address] 79318 PCP - General Family Medicine 08/11/14 Lenin Ramirez MD [address] [facility] [address] [place] [address] Consulting Physician Interventional Cardiology 04/06/22 Sherry George DO [address] [place] [address] Consulting Physician General Surgery 04/06/22 Андрей Pizano MD [address] [facility] [id number] [place] [address] 48326 Referring Physician General Surgery 03/22/22 Diesel Service Technician Relationship Specialty Start Date End Date Zack Olmos MD [address] [place] [address] 11294 PCP - General Family Medicine 08/11/14 Lenin Ramirez MD [address] [facility] [address] [place] [address] Consulting Physician Interventional Cardiology 04/06/22 Sherry George DO [address] [place] [address] Consulting Physician General Surgery 04/06/22 Андрей Pizano MD [address] [facility] [id number] [place] [address] Referring Physician General Surgery 03/22/22 Diesel Service Technician Relationship Specialty Start Date End Date Zack Olmos MD [address] [place], [place] [id number] PCP - General Family Medicine 08/11/14 Lenin Ramirez MD [address] [facility] [address] [place] [address] Consulting Physician Interventional Cardiology 04/06/22 Sherry George DO [address] [place] [address] Consulting Physician General Surgery 04/06/22 Андрей Pizano MD [address] [facility] [id number] [place] [address] Referring Physician General Surgery 03/22/22 Diesel Service Technician Relationship Specialty Start Date End Date Zack Olmos MD [address] [place] [address] 24437 PCP - General Family Medicine 08/11/14 Lenin Ramirez MD [address] [facility] [address] [place] [address] Consulting Physician Interventional Cardiology 04/06/22 Sherry George DO [address] [place] [address] Consulting Physician General Surgery 04/06/22 Андрей Pizano MD [address] [facility] [id number] [place] [address] Referring Physician General Surgery 03/22/22 Diesel Service Technician Relationship Specialty Start Date End Date Zack Olmos MD [address] [place] [address] 18568 PCP - General Family Medicine 08/11/14 Lenin Ramirez MD [address] [place] [address] Consulting Physician Interventional Cardiology 04/06/22 Sherry George DO [address] [place] [address] Consulting Physician General Surgery 04/06/22 Андрей Pizano MD [address] [facility] [id number] [place] [address] 40952 Referring Physician General Surgery 03/22/22 Diesel Service Technician Relationship Specialty Start Date End Date Zack Olmos MD [address] [place] [address] 43664 PCP - General Family Medicine 08/11/14 Lenin Ramirez MD [address] [place] [address] Consulting Physician Interventional Cardiology 04/06/22 Sherry George DO [address] [place] [address] Consulting Physician General Surgery 04/06/22 Андрей Pizano MD [address] [facility] [id number] [place] [address] 01876 Referring Physician General Surgery 03/22/22 Diesel Service Technician Relationship Specialty Start Date End Date Zack Olmos MD [address] [place] [address] PCP - General Family Medicine 08/11/14 Lenin Ramirez MD [address] [facility] [address] [place] [address] Consulting Physician Interventional Cardiology 04/06/22 Sherry George DO [address] [place] [address] Consulting Physician General Surgery 04/06/22 Андрей Pizano MD [address] [facility] [id number] [place] [address] 97664 Referring Physician General Surgery 03/22/22 Diesel Service Technician Relationship Specialty Start Date End Date Zack Olmos MD [address] [place], [place] [id number] PCP - General Family Medicine 08/11/14 Lenin Ramirez MD [address] [facility] [address] [place] [address] Consulting Physician Interventional Cardiology 04/06/22 Sherry George DO [address] [place] [address] Consulting Physician General Surgery 04/06/22 Андрей Pizano MD [address] [facility] [id number] [place] [address] 73238 Referring Physician General Surgery 03/22/22 Diesel Service Technician Relationship Specialty Start Date End Date Zack Olmos MD [address] [place], [place] [id number] PCP - General Family Medicine 08/11/14 Lenin Ramirez MD [address] [place] [address] Consulting Physician Interventional Cardiology 04/06/22 Sherry George DO [address] [place] [address] Consulting Physician General Surgery 04/06/22 Андрей Pizano MD [address] [facility] [id number] [place] [address] 88997 Referring Physician General Surgery 03/22/22 Diesel Service Technician Relationship Specialty Start Date End Date Zack Olmos MD [address] [place] [address] 10386 PCP - General Family Medicine 08/11/14 Lenin Ramirez MD [address] [place] [address] Consulting Physician Interventional Cardiology 04/06/22 Sherry George DO [address] [place] [address] Consulting Physician General Surgery 04/06/22 Андрей Pizano MD [address] [facility] [id number] [place] [address] Referring Physician General Surgery 03/22/22 Diesel Service Technician Relationship Specialty Start Date End Date Zack Olmos MD [address] [place] [address] 36209 PCP - General Family Medicine 08/11/14 Lenin Ramirez MD [address] [facility] [address] [place] [address] Consulting Physician Interventional Cardiology 04/06/22 Sherry George DO [address] [place] [address] Consulting Physician General Surgery 04/06/22 Андрей Pizano MD [address] [facility] [id number] [place] [address] 75700 Referring Physician General Surgery 03/22/22 Diesel Service Technician Relationship Specialty Start Date End Date Zack Olmos MD [address] [place] [address] 53342 PCP - General Family Medicine 08/11/14 Lenin Ramirez MD [address] [facility] [address] [place] [address] Consulting Physician Interventional Cardiology 04/06/22 Sherry George DO [address] [place] [address] Consulting Physician General Surgery 04/06/22 Андрей Pizano MD [address] [facility] [id number] [place] [address] Referring Physician General Surgery 03/22/22 FOR RECORDS PERTAINING TO PATIENTS WHO ARE OR HAVE BEEN ENROLLED IN A CHEMICAL DEPENDENCY/SUBSTANCEABUSE PROGRAM, SOME INFORMATION MAY BE OMITTED. This clinical summary was aggregated from multiple sources. Caution should be exercised in using it in the provision of clinical care. This summary normalizes information from multiple sources, and as a consequence, information in this document may materially change the coding, format and clinical context of patient data. In addition, data may be omitted in some cases. CLINICAL DECISIONS SHOULD BE BASED ON THE PRIMARY CLINICAL RECORDS. [employer] [facility]. provides no warranty or guarantee of the accuracy or completeness of information in this document.
--- NOTE | 2023-04-18 21:26 | EDS_ITS ---
HPI HPI - GI History of Present Illness Chief Complaint: Nausea/Vomiting/Diarrhea Narrative Narrative: 77-year-old male with multiple comorbidities presenting with shortness of breath, cough, nausea, vomiting. Patient also has diarrhea. Patient's states she is also sick with something. They have not tested for anything. is only mildly sick. Patient started being ill yesterday and had a fever of 101.8. Tylenol was given. They have tried to control fevers. Patient developed nausea, vomiting today and has not been able to holding down. He states he wears chronic oxygen and has not had to increase it. History of COPD as well. He is end-stage renal disease on dialysis Monday, Monday, Monday and has an appointment tomorrow. [facility] Medical History Abnormal chest CT Anemia Anxiety Arthritis Back pain BPH (benign prostatic hyperplasia) Congestive heart failure (CHF) COPD (chronic obstructive pulmonary disease) COPD (chronic obstructive pulmonary disease) Coronary artery disease involving coronary bypass graft Coronary atherosclerosis of [place] coronary artery CPAP (continuous positive airway pressure) dependence Depression Emphysema, unspecified End-stage renal disease on hemodialysis Erectile dysfunction ESRD (end stage renal disease) Former smoker GERD (gastroesophageal reflux disease) Gout High cholesterol History of atrial fibrillation History of edema History of heart attack HLD (hyperlipidemia) Hypertension Lower GI bleed Lumbar disc disease with radiculopathy Obesity On home oxygen therapy MARCELO (obstructive sleep apnea) Pleural effusion Psychosexual dysfunction with inhibited sexual excitement Sleep apnea Symptomatic anemia Home Medications allopurinol 100 mg tablet 100 mg PO DAILY GOUT 05/03/18 [History Last Taken 04/18/23] nitroglycerin 0.4 mg sublingual tablet 0.4 mg sublingual Q5-15M PRN chest pain 05/03/18 [History Last Taken Unknown] amiodarone 200 mg tablet 100 mg PO DAILY heart 11/19/20 [History Last Taken 04/18/23] rosuvastatin 10 mg tablet (Crestor) 10 mg PO QHS cholesterol 11/19/20 [History Last Taken 04/17/23] ascorbic acid (vitamin C) 500 mg capsule,extended release (Vitamin C) 500 mg PO DAILY supplement 11/23/20 [History Last Taken 04/18/23] gabapentin 100 mg capsule 200 mg PO QHS restless leg 11/04/21 [History Last Taken 04/17/23] midodrine 10 mg tablet 10 mg PO MOWEFR bp 11/04/21 [History Last Taken 03/18/22] levothyroxine 50 mcg tablet 50 mcg PO DAILY thyroid 12/13/21 [History Last Taken 03/18/22] carvedilol 3.125 mg tablet 3.125 mg PO SuTuThSa@1000 #0 tabs 03/23/22 [Rx Last Taken 04/18/23] guaifenesin 600 mg tablet, extended release 12 hr (Mucinex) 600 mg PO BID 06/07/22 [History Last Taken Unknown] albuterol sulfate 2.5 mg/3 mL (0.083 %) solution for nebulization 2.5 mg (3 mL) inhalation 4X/DAY PRN PRN COPD #180 mL 04/04/23 [Rx Last Taken 04/18/23] aspirin 81 mg tablet,delayed release (Adult Aspirin Regimen) 81 mg PO DAILY 04/04/23 [History Last Taken 04/18/23] fluticasone propionate 50 mcg/actuation nasal spray,suspension 2 spray intranasal DAILY PRN ALLERGIES 04/04/23 [History Last Taken Unknown] glycopyrrolate 9 mcg-formoterol 4.8 mcg HFA aerosol inhaler (Bevespi Aerosphere) 2 puff inhalation BID SOB 04/04/23 [History Last Taken Unknown] sertraline 100 mg tablet 100 mg PO DAILY 04/04/23 [History Last Taken Unknown] vitamin B complex-vitamin C-folic acid 0.8 mg tablet (Tawanna-Laura) 1 tab PO Q24H 04/18/23 [History Last Taken Unknown] Allergy/AdvReac Type Severity Reaction Status Date / Time Penicillins Allergy Severe Rash, 105 Verified 04/18/23 19:45 temp amlodipine Allergy itching Verified 04/18/23 19:45 and rash prednisone Allergy Other Verified 04/18/23 19:45 indomethacin AdvReac Intermediate Other Verified 04/18/23 19:45 ropinirole AdvReac Intermediate Other Verified 04/18/23 19:45 trazodone AdvReac Intermediate Other Verified 04/18/23 19:45 aspirin AdvReac Mild rash Verified 04/18/23 19:45 Family History Mother , 84 y.o. Hypertension CVA (cerebral vascular accident) Father , 70 y.o. Heart disease Hodgkin disease Sister , 72 y.o. Heart disease Surgical History H/O left cataract extraction History of cardiac catheterization History of colectomy (~2022) History of colonoscopy History of coronary artery stent placement History of heart artery stent History of heart surgery History of knee replacement procedure of left knee History of open heart surgery (~08/2020) History of total right knee replacement S/P arteriovenous (AV) fistula repair (~12/2020) Social History household members: spouse housing: house pets and animals: No Smoking Status: Former smoker second hand exposure: No alcohol intake: current alcohol intake frequency: holidays/special occasions only ROS ROS ED Constitutional Constitutional ED: Reports chills and fever(s); Denies sweats Eyes Eyes: Denies blurry vision or change in vision ENT ENT ED: Denies ear pain or sore throat Cardiovascular Cardiovascular: Denies chest pain, palpitations or racing heartbeat Respiratory/Chest Respiratory/Chest: Reports cough; Denies dyspnea or sputum Gastrointestinal Gastrointestinal: Reports nausea and vomiting; Denies abdominal pain, constipation or diarrhea Genitourinary Genitourinary ED: Denies dysuria, hematuria or urinary frequency Musculoskeletal Musculoskeletal: Reports myalgias; Denies arthralgias or neck pain Integumentary Denies abscess, Abrasions or rash Neurologic Neurologic: Denies headache(s), paresthesias or weakness Psychiatric Psychiatric: Denies anxiety, depression, suicidal ideation or suicidal thoughts Endocrine Endocrinology: Denies polydipsia or polyuria EXAM Physical Exam Const Vital Signs: 04/18/23 19:39 04/18/23 20:22 04/18/23 20:25 Temperature 97.3 F L Temperature Source Temporal Pulse Rate 110 H 103 H Respiratory Rate 12 22 H Respiratory Effort Respiratory Depth Respiratory Pattern Blood Pressure 93/59 L 122/65 H Blood Pressure Mean 70 84 Pulse Ox 98 96 96 Oxygen Delivery Method Room Air Nasal Cannula Nasal Cannula Oxygen Flow Rate (L/min) 3 3 04/18/23 20:37 04/18/23 20:38 04/18/23 22:14 Temperature Temperature Source Pulse Rate 103 H 102 H Respiratory Rate 24 H 22 H Respiratory Effort Short of Breath Respiratory Depth Normal Respiratory Pattern Tachypnea Blood Pressure 112/58 L Blood Pressure Mean 76 Pulse Ox 99 94 Oxygen Delivery Method Nasal Cannula Room Air Oxygen Flow Rate (L/min) 04/18/23 22:16 Temperature 99.4 F H Temperature Source Oral Pulse Rate 96 Respiratory Rate 20 H Respiratory Effort Respiratory Depth Respiratory Pattern Blood Pressure 109/74 Blood Pressure Mean 85 Pulse Ox 94 Oxygen Delivery Method Nasal Cannula Oxygen Flow Rate (L/min) 3 General Appearance ED: Negative for pallor HEENT Reports moist mucous membranes normocephalic and atraumatic Eyes PERRL and EOMs intact bilaterally Neck no lymphadenopathy Resp normal respiratory effort Auscultation: Negative for rales, rhonchi or wheezes Cardio regular rate and regular rhythm GI non-tender Neuro CN's II-XII intact bilaterally and moves all extremities Sensorium / Orientation: alert Motor Exam: general weakness Psych mental status grossly normal Skin no wounds General Skin Exam: Negative for jaundice or pallor MDM MDM MDM Narrative Medical decision making narrative: 77-year-old male presenting with shortness of breath, fever, chills. has similar symptoms. Differential includes COVID, influenza, RSV, pneumonia, COPD, ACS, electrolyte normalities, pulmonary vascular congestion. CBC will be obtained to assess white blood cell count, hemoglobin, platelets. BMP to assess renal function, electrolytes, glucose. High-sensitivity troponin EKG to assess for ischemia/arrhythmia. Chest x-ray to rule out pneumonia or volume overload. COVID, influenza, RSV swab was obtained. Patient given to 50 cc of IV fluids. He is given Zofran 4 mg IV. On reevaluation he is feeling much better after Zofran. CBC shows white blood cell count 11.6. Hemoglobin 10.9. Platelets are 154. Renal function at baseline for end-stage renal disease. Electrolytes unremarkable. High-sensitivity opponent is 74. EKG on my interpretation shows A-fib at a rate of 115 bpm. Patient attempted to ambulate and became hypoxic in the bed that 86% before even ambulating. states that she can barely get him around at baseline at home and there is concern she would not be able to care for him. Patient's flu swab came back positive. He started on Tamiflu. Chest x-ray shows increased interstitial markings and small bibasilar pleural effusions on my interpretation. I do not believe the patient needs antibiotics currently. Impression: 1. Nausea/vomiting 2. Diarrhea 3. Hypoxic respiratory failure 4. Influenza A Lab Data Attestation: I reviewed the patient's lab results. Labs: Laboratory Results - last 24 hr 04/18/23 19:58 WBC 11.6 H RBC 3.17 L Hgb 10.9 L Hct 34.3 L MCV 108.2 H MCH 34.4 H MCHC 31.8 L RDW Std Deviation 58.5 H RDW Coeff of Nick 14.6 Plt Count 154 MPV 9.3 Immature Gran % (Auto) 0.500 Neut % (Auto) 84.9 H Lymph % (Auto) 4.2 L [place] % (Auto) 8.6 Eos % (Auto) 1.0 Baso % (Auto) 0.8 Absolute Neuts (auto) 9.8 H Absolute Lymphs (auto) 0.49 L Nucleated RBC % 0 Differential Comment SEE COMMENT Platelet Estimate ADEQUATE RBC Morphology N CHROM Hypochromasia 1+ Anisocytosis 1+ Macrocytosis 1+ Ovalocytes RARE Sodium 135 L Potassium 4.8 Chloride 97 L Carbon Dioxide 31.0 Anion Gap 7 BUN 36 H Creatinine 4.61 H Estim Creat Clear Calc 14.36 Est GFR (MDRD) Af Amer 16 L Est GFR (MDRD) Non-Af 13 L BUN/Creatinine Ratio 7.8 L Glucose 127 H Calcium 9.4 Phosphorus 3.0 Magnesium 2.1 Total Bilirubin 1.00 Direct Bilirubin 0.43 H AST 23 ALT 30 Alkaline Phosphatase 209 H Troponin I High Sens 74 Total Protein 7.4 Albumin 3.1 L Globulin 4.3 H Radiography Diagnostic Testing: Clinical Impression(s) from Imaging Studies Chest X-Ray 04/18/23 20:34 IMPRESSION: Increased interstitial markings may represent edema and/or infection. Cardiomegaly with trace bilateral pleural effusions. Electronically Signed: Rich Juarez MD at 21:42 EST , Discharge Plan Triage Chief Complaint: Nausea/Vomiting/Diarrhea ED Provider: Jaya Mendez Dx/Rx/DC Orders Prescriptions: No Action allopurinol 100 mg tablet 100 mg PO DAILY nitroglycerin 0.4 mg tablet, sublingual 0.4 mg SUBLINGUAL Q5-15M PRN (Reason: chest pain) amiodarone 200 mg tablet 100 mg PO DAILY rosuvastatin [Crestor] 10 mg tablet 10 mg PO QHS gabapentin 100 mg capsule 200 mg PO QHS midodrine 10 mg tablet 10 mg PO MOWEFR Patient Comments: per patient he takes before dialysis Rx Instructions: do not give last dose of day after 6PM or within 4 hrs of bedtime guaifenesin [Mucinex] 600 mg tablet extended release 12hr 600 mg PO BID fluticasone propionate 50 mcg/actuation spray,suspension 2 spray INTRANASAL DAILY PRN (Reason: ALLERGIES) Bevespi Aerosphere 9-4.8 mcg HFA aerosol inhaler 2 puff INHALATION BID sertraline 100 mg tablet 100 mg PO DAILY Patient Comments: TAKE 1 TABLET BY MOUTH ONCE DAILY aspirin [Adult Aspirin Regimen] 81 mg tablet,delayed release (DR/EC) 81 mg PO DAILY albuterol sulfate 2.5 mg /3 mL (0.083 %) solution for nebulization 2.5 mg inhalation 4X/DAY PRN PRN (Reason: COPD) Qty: 180 6RF ascorbic acid (vitamin C) [Vitamin C] 500 mg Capsule, Extended Release 500 mg PO DAILY levothyroxine 50 mcg tablet 50 mcg PO DAILY carvedilol 3.125 mg Tablet 3.125 mg PO SuTuThSa@1000 Qty: 0 0RF Tawanna-Laura 0.8 mg tablet 1 tab PO Q24H Patient Comments: TAKE 1 TABLET BY MOUTH ONCE DAILY Primary Care Provider: Zack Stacy Referrals: Zack Stacy MD [Primary Care Provider] -
--- NOTE | 2023-04-18 21:57 | PCM.HP.STD ---
HPI - General General Date of Admission: 04/18/23 Date of Service: 04/18/23 Chief Complaint: Fever, cough shortness of breath for 24 hours nausea, vomiting diarrhea. nausea, vomiting loose bowel movement too HPI Narrative ANGIE SINGH, is a 77 M with history of COPD, chronic A-fib not on anticoagulant, on 3 L of baseline home oxygen came to ED with his for 1 day history of shortness of breath fever cough with thick yellow phlegm. Patient is stated that he went to dinner in a restaurant yesterday and he got sick after that. He has mild cough with shortness of breath at rest and required 6 L of oxygen along with tachypnea in ED. Patient was also A-fib with RVR at115/min, LAD, old inferior infarct as per EKG done in ED. EMS EKG shows heart rate 128/min. At home patient felt feverish and temperature was 101.8 Fahrenheit. Patient also has systemic symptoms of nausea, vomiting and 1 loose bowel movement in the evening today. He had 1 formed stool in the morning. Patient tested positive for influenza and started on Tamiflu and further admitted. The patient has multiple comorbidities as mentioned below including COPD, hemodialysis on Monday, CAD status post CABG and stents and chronic A-fib. Vitals, labs and chest x-ray done in ED reviewed and discussed in assessment and plan. [facility] Medical History Abnormal chest CT Anemia Anxiety Arthritis Back pain BPH (benign prostatic hyperplasia) Congestive heart failure (CHF) COPD (chronic obstructive pulmonary disease) COPD (chronic obstructive pulmonary disease) Coronary artery disease involving coronary bypass graft Coronary atherosclerosis of [place] coronary artery CPAP (continuous positive airway pressure) dependence Depression Emphysema, unspecified End-stage renal disease on hemodialysis Erectile dysfunction ESRD (end stage renal disease) Former smoker GERD (gastroesophageal reflux disease) Gout High cholesterol History of atrial fibrillation History of edema History of heart attack HLD (hyperlipidemia) Hypertension Lower GI bleed Lumbar disc disease with radiculopathy Obesity On home oxygen therapy MARCELO (obstructive sleep apnea) Pleural effusion Psychosexual dysfunction with inhibited sexual excitement Sleep apnea Symptomatic anemia Home Medications allopurinol 100 mg tablet 100 mg PO DAILY GOUT 05/03/18 [History Last Taken 04/18/23] nitroglycerin 0.4 mg sublingual tablet 0.4 mg sublingual Q5-15M PRN chest pain 05/03/18 [History Last Taken Unknown] amiodarone 200 mg tablet 100 mg PO DAILY heart 11/19/20 [History Last Taken 04/18/23] rosuvastatin 10 mg tablet (Crestor) 10 mg PO QHS cholesterol 11/19/20 [History Last Taken 04/17/23] ascorbic acid (vitamin C) 500 mg capsule,extended release (Vitamin C) 500 mg PO DAILY supplement 11/23/20 [History Last Taken 04/18/23] gabapentin 100 mg capsule 200 mg PO QHS restless leg 11/04/21 [History Last Taken 04/17/23] midodrine 10 mg tablet 10 mg PO MOWEFR bp 11/04/21 [History Last Taken 03/18/22] levothyroxine 50 mcg tablet 50 mcg PO DAILY thyroid 12/13/21 [History Last Taken 03/18/22] carvedilol 3.125 mg tablet 3.125 mg PO SuTuThSa@1000 #0 tabs 03/23/22 [Rx Last Taken 04/18/23] guaifenesin 600 mg tablet, extended release 12 hr (Mucinex) 600 mg PO BID 06/07/22 [History Last Taken Unknown] albuterol sulfate 2.5 mg/3 mL (0.083 %) solution for nebulization 2.5 mg (3 mL) inhalation 4X/DAY PRN PRN COPD #180 mL 04/04/23 [Rx Last Taken 04/18/23] aspirin 81 mg tablet,delayed release (Adult Aspirin Regimen) 81 mg PO DAILY 04/04/23 [History Last Taken 04/18/23] fluticasone propionate 50 mcg/actuation nasal spray,suspension 2 spray intranasal DAILY PRN ALLERGIES 04/04/23 [History Last Taken Unknown] glycopyrrolate 9 mcg-formoterol 4.8 mcg HFA aerosol inhaler (Bevespi Aerosphere) 2 puff inhalation BID SOB 04/04/23 [History Last Taken Unknown] sertraline 100 mg tablet 100 mg PO DAILY 04/04/23 [History Last Taken Unknown] vitamin B complex-vitamin C-folic acid 0.8 mg tablet ([place]awanna-Laura) 1 tab PO Q24H 04/18/23 [History Last Taken Unknown] Allergy/AdvReac Type Severity Reaction Status Date / Time Penicillins Allergy Severe Rash, 105 Verified 04/18/23 19:45 temp amlodipine Allergy itching Verified 04/18/23 19:45 and rash prednisone Allergy Other Verified 04/18/23 19:45 indomethacin AdvReac Intermediate Other Verified 04/18/23 19:45 ropinirole AdvReac Intermediate Other Verified 04/18/23 19:45 trazodone AdvReac Intermediate Other Verified 04/18/23 19:45 aspirin AdvReac Mild rash Verified 04/18/23 19:45 Family History Mother , 84 y.o. Hypertension CVA (cerebral vascular accident) Father , 70 y.o. Heart disease Hodgkin disease Sister , 72 y.o. Heart disease Surgical History H/O left cataract extraction History of cardiac catheterization History of colectomy (~2022) History of colonoscopy History of coronary artery stent placement History of heart artery stent History of heart surgery History of knee replacement procedure of left knee History of open heart surgery (~08/2020) History of total right knee replacement S/P arteriovenous (AV) fistula repair (~12/2020) Social History household members: spouse housing: house pets and animals: No Smoking Status: Former smoker second hand exposure: No alcohol intake: current alcohol intake frequency: holidays/special occasions only ROS ROS Narrative Constitutional: Reports fatigue and weakness. Fever as mentioned in HPI HEENT: Reports systems reviewed and no addt'l complaints, except as documented Respiratory/Chest: Admission HPI. On 3 L of baseline oxygen. CVS: No chest pain pressure or tightness. Chronic A-fib not on anticoagulant. Gastrointestinal: No abdominal pain. Rest as mentioned in HPI Genitourinary: Denies burning urination or new urinary tract symptoms Musculoskeletal: Denies acute joint pain or limited range of motion. No acute injury Neurologic: Denies seizure-like symptoms. skin: No ulcer. No rash Endocrinology: Reports systems reviewed and no addt'l complaints, except as documented Hematologic/Lymphatic: Denies history of DVT/PE. Reports systems reviewed and no addt'l complaints, except as documented Rest 14 ROS are negative except as mentioned in HPI Vital Signs Vital Signs Vital Signs: 04/18/23 19:39 04/18/23 20:22 04/18/23 20:25 Temperature 97.3 F L Temperature Source Temporal Pulse Rate 110 H 103 H Respiratory Rate 12 22 H Respiratory Effort Respiratory Depth Respiratory Pattern Blood Pressure 93/59 L 122/65 H Blood Pressure Mean 70 84 Pulse Ox 98 96 96 Oxygen Delivery Method Room Air Nasal Cannula Nasal Cannula Oxygen Flow Rate (L/min) 3 3 04/18/23 20:37 04/18/23 20:38 Temperature Temperature Source Pulse Rate 103 H Respiratory Rate 24 H Respiratory Effort Short of Breath Respiratory Depth Normal Respiratory Pattern Tachypnea Blood Pressure Blood Pressure Mean Pulse Ox 99 Oxygen Delivery Method Nasal Cannula Room Air Oxygen Flow Rate (L/min) Weight Weight: 192 lb 0.362 oz Body Mass Index (BMI) 30.0 Physical Exam Narrative General: Alert, Oriented x3, Cooperative HEENT: Atraumatic, PERRLA, EOMI, Normocephalic Oral: No Gingival or Mucosal Lesions/ Ulcerations Neck: Supple, No JVD, Negative Carotid Bruits Chest wall/Lungs: Air entry very diminished in both lungs. Expiratory rhonchi present. Cardiovascular: Irregular rate and rhythm, status post CABG., Normal S1, Normal S2. Soft systolic murmur. Abdomen: Bowel Sounds Present, Soft, Non Tender, Non-Distended : No dysuria. No renal angle tenderness. No suprapubic tenderness. Extremities: No edema, Capillary Refill Less than 3 Seconds Skin: No- decubitus, chronic, superficial ulcer present on the right lower leg, probably venous ulcer. Covered with dressing. Musculoskeletal: No Tenderness to Palpation of Joints or Extremities Neurological: Cranial nerves II-XII grossly intact, DTR 2+/4. No acute focal neurological deficit. Psych/Mental Status: Flat affect Results Lab / Micro Data 04/18/23 19:58 04/18/23 19:58 Labs: Laboratory Results - last 24 hr 04/18/23 19:58: WBC 11.6 H, RBC 3.17 L, Hgb 10.9 L, Hct 34.3 L, MCV 108.2 H, MCH 34.4 H, MCHC 31.8 L, RDW Std Deviation 58.5 H, RDW Coeff of Nick 14.6, Plt Count 154, MPV 9.3, Immature Gran % (Auto) 0.500, Neut % (Auto) 84.9 H, Lymph % (Auto) 4.2 L, [place] % (Auto) 8.6, Eos % (Auto) 1.0, Baso % (Auto) 0.8, Absolute Neuts (auto) 9.8 H, Absolute Lymphs (auto) 0.49 L, Nucleated RBC % 0, Differential Comment SEE COMMENT, Platelet Estimate ADEQUATE, RBC Morphology N CHROM, Hypochromasia 1+, Anisocytosis 1+, Macrocytosis 1+, Ovalocytes RARE, Sodium 135 L, Potassium 4.8, Chloride 97 L, Carbon Dioxide 31.0, Anion Gap 7, BUN 36 H, Creatinine 4.61 H, Estim Creat Clear Calc 14.36, Est GFR (MDRD) Af Amer 16 L, Est GFR (MDRD) Non-Af 13 L, BUN/Creatinine Ratio 7.8 L, Glucose 127 H, Calcium 9.4, Troponin I High Sens 74 Micro: Microbiology 04/18/23 20:25 Mucosa - Nose SARS-CoV-2, Influenza & RSV (PCR) - Final Influenzae A Imaging Radiology Impression Chest X-Ray 04/18/23 20:34 IMPRESSION: Increased interstitial markings may represent edema and/or infection. Cardiomegaly with trace bilateral pleural effusions. Electronically Signed: Rich Juarez MD at 21:42 EST , Assessment & Plan Assessment/Plan (1) Atrial flutter with rapid ventricular response: (2) COPD exacerbation: PLAN: Plan This 77-year-old gentleman being being admitted for worsening shortness of breath, cough fever for last 24 hours along with nausea vomiting and loose bowel movement. 1. COPD exacerbation most likely due to influenza A bronchitis: Patient is being admitted in PCU as inpatient. Chest x-ray individually reviewed and shows increased interstitial markings bilaterally suggestive of possible infection/edema. Patient is positive of influenza A PCR, negative for SARS-CoV-2 and RSV. Patient was started on Tamiflu. Patient is being managed on scheduled bronchodilator, IV Solu-Medrol, Mucinex, incentive spirometry and Pep. Blood cultures x 2, urinary antigens ordered. Most likely patient has viral influenza A bronchitis but if patient spikes further fever, will need to consider secondary bacterial infection or antibiotics. 2. A-fib with RVR most likely due to influenza A bronchitis: Heart rate is getting better. Will avoid DuoNeb therefore on ipratropium nebulization. patient on rate control strategy on amiodarone and carvedilol. Patient not on anticoagulant because of several episodes of increased bleeding during hemodialysis access sites and history of acute blood loss anemia due to lower GI bleed from CA colon for which patient was last admitted in March 2022 and Eliquis was discontinued on that admission. Patient on baby aspirin continued. 3. Coronary artery disease status post stenting and CABG: Home medication Coreg and statin continued. 4.End-stage renal disease on HD Monday/Monday/Monday. Continue midodrine. [place] Operator consulted. 5. Hypothyroidism: TSH ordered tomorrow a.m.Continue Synthroid DVT prophylaxis: High risk due to history of cancer colon And ESRD. Heparin 5000 units subcutaneous every 12 hourly. Bilateral SCDs. Living will/advanced directive/end of life care: Patient does have living will or advanced directive. His in the ED is power of wagon washer for health. After discussion of benefits/risks procedures involved with full code, DNR CC arrest and DNR CC, the patient and his opted for DNRCC arrest with no intubation Patient doesn't want artificial life support including intubation, tube feed, ventilator and/chest compression, central venous catheter, vasopressor and DC shock if needed Total time spent in [id number] encounter in discussion of advanced directive 17 minutes. Microbiology Past 72 Hours 04/18/23 20:25 Mucosa - Nose SARS-CoV-2, Influenza & RSV (PCR) - Final Influenzae A Laboratory Results 04/18/23 19:58: WBC 11.6 H, RBC 3.17 L, Hgb 10.9 L, Hct 34.3 L, MCV 108.2 H, MCH 34.4 H, MCHC 31.8 L, RDW Std Deviation 58.5 H, RDW Coeff of Nick 14.6, Plt Count 154, MPV 9.3, Immature Gran % (Auto) 0.500, Neut % (Auto) 84.9 H, Lymph % (Auto) 4.2 L, [place] % (Auto) 8.6, Eos % (Auto) 1.0, Baso % (Auto) 0.8, Absolute Neuts (auto) 9.8 H, Absolute Lymphs (auto) 0.49 L, Nucleated RBC % 0, Differential Comment SEE COMMENT, Platelet Estimate ADEQUATE, RBC Morphology N CHROM, Hypochromasia 1+, Anisocytosis 1+, Macrocytosis 1+, Ovalocytes RARE, Sodium 135 L, Potassium 4.8, Chloride 97 L, Carbon Dioxide 31.0, Anion Gap 7, BUN 36 H, Creatinine 4.61 H, Estim Creat Clear Calc 14.36, Est GFR (MDRD) Af Amer 16 L, Est GFR (MDRD) Non-Af 13 L, BUN/Creatinine Ratio 7.8 L, Glucose 127 H, Calcium 9.4, Troponin I High Sens 74 Clinical Impression(s) from Imaging Studies Chest X-Ray 04/18/23 20:34 IMPRESSION: Increased interstitial markings may represent edema and/or infection. Cardiomegaly with trace bilateral pleural effusions. Charges/Coding Visit Charges Inpatient E&M: 92700 Init Hosp L3 Procedures Hospitalists Procedures: 45280 Advncd Care Plan 30 Min
[2023-04-18] MEDS: Oseltamivir Phosphate 75 MG Capsule PO (22:14)
[2023-04-18 22:33] LABS: AST(SGOT) 23 U/L (15-37); Alanine Aminotransfer ALT/SGPT 30 U/L (16-61); Albumin, Serum 3.1 g/dL (3.2-5.0); Alkaline Phosphatase 209 U/L (45-117); Bilirubin, Direct 0.43 mg/dL (0.00-0.30); Globulin 4.3 g/dL (2.2-4.2); Magnesium 2.1 mg/dL (1.6-2.6); Protein, Total 7.4 g/dL (6.4-8.2)
--- OUTSIDE RECORDS SUMMARY | 2023-04-18 22:55 | XMS RPT_ITS | CCD ---
Author Name Unknown Address [address] [facility] [address] [place] [address] Organization [facility] Care Team Providers Care Make Up Operator Name Role Phone Zack Olmos Unavailable Raven [...] Primary Care Provider Lenin Ramirez MD Unavailable [phone] Sherry George DO Unavailable [phone] ZACK OLMOS Primary Care Unavailable ZACK OLMOS [...] Corrales MD Unavailable [facility] Unavailable [phone] Laith GONZALEZ, Dr. Rivera ([facility]) A Unavail able Orthopedic Provider Unavailable Unavailable Miranda GONZALEZ, Dr. Echevarria Unavailable Medicine [facility], Pulmonary Unavailable Cardiology Provider Unavailable Unavailable Garrett GONZALEZ, Dr. Fulton Unavailable Dr. Riley Victor MD Unavailable James GONZALEZ, Dr. García Unavailable [phone] Emilie COSTA, Farideh Unavailable Vascular Surgeon Unavailable Unavailable Luiz GONZALEZ, Rosy Gonsales Unavailable Jose DRY HOUSE ATTENDANT, Totz Unavailable Unavailable Elbert DRY HOUSE ATTENDANT, Laura E Unavailable Unavailable [place] DRY HOUSE ATTENDANT, Lesley C Unavailable Unavailable Corcoran DRY HOUSE ATTENDANT, Johnny Unavailable Unavailable Sanjeev GONZALEZ, Donaldo Herrera Unavailable Keenan MC, Edgar Gonsales Unavailable Keenan RN, Vania L Unavailable Unavail able Won DRY HOUSE ATTENDANT, Varsha Unavailable Unavailable Popeye DE LEON, Umu Herrera Unavailable Unavaila ble Marthey DRY HOUSE ATTENDANT, Lien Unavailable Unavailable Cedric DRY HOUSE ATTENDANT, Sravan Unavailable Unavailable Mutersbaugh DRY HOUSE ATTENDANT, Rachel K Unavailable Unavai toya CORRALC, Yarely J Unavailable Konrad CAST IRON DRAIN PIPE LAYER, Randi Unavailable Unavailable Isac DRY HOUSE ATTENDANT, Alejandrina L Unavailable Unavailab le Corby DRY HOUSE ATTENDANT, Rosy M Unavailable Unavailab le Garey DRY HOUSE ATTENDANT, Muna Engel Unavailable Unavailab angelita Obrien MA, Varsha Unavailable Unavailable Kelly GONZALEZ, Tip Herrera Unavailable Wedannielleerd DRY HOUSE ATTENDANT, Sandra Unavailable Unavailabl e Partha DRY HOUSE ATTENDANT, Marisela N Unavailable Unavaila ble Zaugg DRY HOUSE ATTENDANT, Raven Unavailable Unavailable Unavailable Unavailable SHERRY GEORGE [...] (10 sources) amLODIPine Drug Allergy 0 Itching [facility] Aspirin (10 sources) Aspirin Drug Allergy 5 [facility] Corticosteroids (7 sources) predniSONE Drug Allergy 1 [facility] Penicillins (antibiotic) (10 sources) Penicillins Drug Allergy 5 Other (See Comments) [facility] (20 sources) aspirin; Translations: [EC ASPIRIN] Propensity to adverse reactions to drug 5 [facility] (20 sources) Penicillins; Translations: [PENICILLINS] Propensity to adverse reactions to drug 5 Other (See Comments) [facility] (20 sources) amLODIPine; Translations: [AMLODIPINE] Drug Allergy 0 Itching [facility] (20 sources) Penicillins; Translations: [penicillins] Propensity to adverse reactions to drug 5 Other (See Comments), Prednisone (substance) [facility] (20 sources) predniSONE; Translations: [PREDNISONE] Drug Allergy 1 Other (See Comments) [facility] (20 sources) Penicillins Propensity to adverse reactions to drug 5 Other (See Comments) [facility] (20 sources) oxyCODONE; Translations: [OXYCODONE] Drug Allergy 3 GI Intolerance [facility] (9 sources) Aspirin; Translations: [aspirin] Drug Allergy [facility] (1 source) Indomethacin; Translations: [indomethacin] [facility] Allergy [facility] (1 source) rOPINIRole; Translations: [ropinirole] Drug Allergy [facility] (1 source) traZODone; Translations: [trazodone] Drug Allergy [facility] (1 source) amLODIPine Drug Allergy [facility] (1 source) Penicillin Drug Allergy [facility] (1 source) predniSONE Drug Allergy [facility] (1 source) Coating on Aspirin Drug allergy (disorder) [facility] (8 sources) Penicillin V Drug Allergy [facility], [facility].; [facility]. 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. 03-30-2023 10:36-0500 Diastolic blood pressure 56 mm[Hg] Sravan Steele LPN [facility], [facility]. 03-30-2023 10:36-0500 Heart rate 73 /min Sravan Steele LPN [facility] 03-30-2023 10:36-0500 Systolic blood pressure 83 mm[Hg] Sravan Steele LPN [facility].; [facility]. 12-22-2022 09:58-0400 Body temperature 97.59 [degF] Андрей Claros RN [facility] 12-22-2022 09:58-0400 Diastolic blood pressure 62 mm[Hg] Андрей Claros RN [facility] 12-22-2022 09:58-0400 Heart rate 74 /min Андрей Claros RN [facility] 12-22-2022 09:58-0400 Respiratory rate 14 /min Андрей Claros RN [facility] 12-22-2022 09:58-0400 SaO2% (BldA) [Mass fraction] 90 % Андрей Claros RN [facility] 12-22-2022 09:58-0400 Systolic blood pressure 102 mm[Hg] Андрей Claros RN [facility] 12-15-2022 09:14-0400 Body temperature 98.1 [degF] Андрей Claros RN [facility] 12-15-2022 09:14-0400 Diastolic blood pressure 68 mm[Hg] Андрей Claros RN [facility] 12-15-2022 09:14-0400 Heart rate 76 /min Андрей Claros RN [facility] 12-15-2022 09:14-0400 Respiratory rate 16 /min Андрей Claros RN [facility] 12-15-2022 09:14-0400 SaO2% (BldA) [Mass fraction] 98 % Андрей Claros RN [facility] 12-15-2022 09:14-0400 Systolic blood pressure 112 mm[Hg] Андрей Claros RN [facility] 12-06-2022 13:42-0400 Body height 170.2 cm Sherry George DO Work Phone: [facility] 12-06-2022 13:42-0400 Body mass index (BMI) [Ratio] 26.63 kg/m2 Sherry George DO Work Phone: [facility] 12-06-2022 13:42-0400 Body weight 77.11 kg Sherry George DO Work Phone: [facility] 12-06-2022 13:42-0400 Diastolic blood pressure 56 mm[Hg] Sherry George DO Work Phone: [facility] 12-06-2022 13:42-0400 Heart rate 71 /min Sheryr George DO Work Phone: [facility] 12-06-2022 13:42-0400 Systolic blood pressure 94 mm[Hg] Sherry George DO Work Phone: [facility] 12-06-2022 10:33-0400 Body height 170.2 cm Lenin Ramirez MD Work Phone: [facility] 12-06-2022 10:33-0400 Diastolic blood pressure 58 mm[Hg] Lenin Ramirez MD Work Phone: [facility] 12-06-2022 10:33-0400 Heart rate 76 /min Lenin Ramirez MD Work Phone: [facility] 12-06-2022 10:33-0400 Systolic blood pressure 98 mm[Hg] Lenin Ramirez MD Work Phone: [facility] 12-01-2022 10:39-0400 Body temperature 97.7 [degF] Андрей Claros RN [facility] 12-01-2022 10:39-0400 Diastolic blood pressure 60 mm[Hg] Андрей Claros RN [facility] 12-01-2022 10:39-0400 Heart rate 91 /min Андрей Claros RN [facility] 12-01-2022 10:39-0400 Respiratory rate 16 /min Андрей Claros RN [facility] 12-01-2022 10:39-0400 SaO2% (BldA) [Mass fraction] 93 % Андрей Claros RN [facility] 12-01-2022 10:39-0400 Systolic blood pressure 102 mm[Hg] Андрей Claros RN [facility] 11-30-2022 13:52-0400 Diastolic blood pressure 55 mm[Hg] Sravan Steele LPN [facility], [facility].; [facility]. 11-30-2022 13:52-0400 Heart rate 93 /min Sravan Steele LPN [facility], [facility].; [facility], [facility]. 11-30-2022 13:52-0400 Systolic blood pressure 111 mm[Hg] Sravan Steele LPN [facility], [facility].; [facility], [facility]. 11-27-2022 10:09-0400 Heart rate 89 /min KATHE CHAMPION MD [facility] 11-27-2022 10:09-0400 Respiratory rate 18 /min KATHE CHAMPION MD [facility] 11-27-2022 10:04-0400 Body temperature 97.7 [degF] KATHE CHAMPION MD [facility] 11-27-2022 10:04-0400 Diastolic Blood Pressure Non-Invasive 74 [address] [facility] 11-27-2022 10:04-0400 Heart rate 89 /min KATHE CHAMPION MD [facility] 11-27-2022 10:04-0400 Systolic Blood Pressure Non-Invasive 105 [address] [facility] 11-27-2022 07:27-0400 Heart rate 85 /min KATHE CHAMPION MD [facility] 11-27-2022 07:27-0400 Respiratory rate 18 /min KATHE CHAMPION MD [facility] 11-27-2022 07:18-0400 Body temperature 97.7 [degF] KATHE CHAMPION MD [facility] 11-27-2022 07:18-0400 Diastolic Blood Pressure Non-Invasive 55 [address] [facility] 11-27-2022 07:18-0400 Respiratory rate 18 /min KATHE CHAMPION MD [facility] 11-27-2022 07:18-0400 Systolic Blood Pressure Non-Invasive 98 [address] [facility] 11-27-2022 02:28-0400 Blood Pressure Cuff Size KATHE CHAMPION MD [facility] 11-27-2022 02:28-0400 Blood Pressure Location KATHE CHAMPION MD [facility] 11-27-2022 02:28-0400 Blood Pressure Method KATHE CHAMPION MD [facility] 11-27-2022 02:28-0400 Body temperature 97.88 [degF] KATHE CHAMPION MD [facility] 11-27-2022 02:28-0400 Diastolic Blood Pressure Non-Invasive 61 [address] [facility] 11-27-2022 02:28-0400 Systolic Blood Pressure Non-Invasive 93 [address] [facility] 11-27-2022 00:40-0400 Blood Pressure Cuff Size KATHE CHAMPION MD [facility] 11-27-2022 00:40-0400 Blood Pressure Location KATHE CHAMPION MD [facility] 11-27-2022 00:40-0400 Blood Pressure Method KATHE CHAMPION MD [facility] 11-26-2022 23:26-0400 Blood Pressure Cuff Size KATHE CHAMPION MD [facility] 11-26-2022 23:26-0400 Blood Pressure Location KATHE CHAMPION MD [facility] 11-26-2022 23:26-0400 Blood Pressure Method KATHE CHAMPION MD [facility] 11-26-2022 19:11-0400 Body temperature 96.8 [degF] KATHE CHAMPION MD [facility] 11-26-2022 19:11-0400 Body weight 80.5 kg KATHE CHAMPION MD [facility] 11-26-2022 19:11-0400 Reason For Taking VItal Signs KATHE CHAMPION MD [facility] 11-26-2022 19:01-0400 Heart rate 104 /min KATHE CHAMPION MD [facility] 11-26-2022 18:31-0400 Heart rate 104 /min KATHE CHAMPION MD [facility] 11-26-2022 18:02-0400 Heart rate 76 /min KATHE CHAMPION MD [facility] 11-26-2022 17:05-0400 Body weight 81.9 kg KATHE CHAMPION MD [facility] 11-26-2022 17:05-0400 Reason For Taking VItal Signs KATHE CHAMPION MD [facility] 11-26-2022 14:34-0400 Heart rate 124 /min KATHE CHAMPION MD [facility] 11-26-2022 10:36-0400 Heart rate 104 /min KATHE CHAMPION MD [facility] 11-26-2022 02:23-0400 Reason For Taking VItal Signs KATHE CHAMPION MD [facility] 11-25-2022 12:20-0400 Body temperature 98.06 [degF] KATHE CHAMPION MD [facility] 11-25-2022 12:20-0400 Body weight 78.2 kg KATHE CHAMPION MD [facility] 11-25-2022 09:23-0400 Body temperature 97.52 [degF] KATHE CHAMPION MD [facility] 11-24-2022 19:00-0400 Heart rate 92 /min KATHE CHAMPION MD [facility] 11-24-2022 16:54-0400 Mean blood pressure 68 mm[Hg] KATHE CHAMPION MD [facility] 11-24-2022 15:05-0400 Mean blood pressure 67 mm[Hg] KATHE CHAMPION MD [facility] 11-24-2022 14:30-0400 Mean blood pressure 60 mm[Hg] KATHE CHAMPION MD [facility] 11-24-2022 00:05-0400 Body height 170 cm KATHE CHAMPION MD [facility] 11-24-2022 00:05-0400 Body weight 26.75 kg/m2 KATHE CHAMPION MD [facility] 11-17-2022 08:56-0400 Body temperature 97.2 [degF] Essence Larios [facility] 11-17-2022 08:56-0400 Diastolic blood pressure 58 mm[Hg] Essence Larios [facility] 11-17-2022 08:56-0400 Heart rate 58 /min Essence Larios [facility] 11-17-2022 08:56-0400 Respiratory rate 18 /min Essence Larios [facility] 11-17-2022 08:56-0400 SaO2% (BldA) [Mass fraction] 98 % Essence Larios [facility] 11-17-2022 08:56-0400 Systolic blood pressure 102 mm[Hg] Essence Larios [facility] 11-03-2022 10:55-0400 Body temperature 98.2 [degF] Андрей Claros RN [facility] 11-03-2022 10:55-0400 Diastolic blood pressure 62 mm[Hg] Андрей Claros RN [facility] 11-03-2022 10:55-0400 Heart rate 78 /min Андрей Claros RN [facility] 11-03-2022 10:55-0400 Respiratory rate 16 /min Андрей Claros RN [facility] 11-03-2022 10:55-0400 SaO2% (BldA) [Mass fraction] 93 % Андрей Claros RN [facility] 11-03-2022 10:55-0400 Systolic blood pressure 118 mm[Hg] Андрей Claros RN [facility] 10-25-2022 09:24-0400 Body temperature 98.29 [degF] Андрей Claros RN [facility] 10-25-2022 09:24-0400 Diastolic blood pressure 62 mm[Hg] Андрей Claros RN [facility] 10-25-2022 09:24-0400 Heart rate 78 /min Андрей Claros RN [facility] 10-25-2022 09:24-0400 Respiratory rate 16 /min Андрей Claros RN [facility] 10-25-2022 09:24-0400 SaO2% (BldA) [Mass fraction] 92 % Андрей Claros RN [facility] 10-25-2022 09:24-0400 Systolic blood pressure 102 mm[Hg] Андрей Claros RN [facility] 10-13-2022 08:53-0400 Body temperature 97.9 [degF] Андрей Claros RN [facility] 10-13-2022 08:53-0400 Diastolic blood pressure 62 mm[Hg] Андрей Claros RN [facility] 10-13-2022 08:53-0400 Heart rate 86 /min Андрей Claros RN [facility] 10-13-2022 08:53-0400 Respiratory rate 16 /min Андрей Claros RN [facility] 10-13-2022 08:53-0400 SaO2% (BldA) [Mass fraction] 97 % Андрей Claros RN [facility] 10-13-2022 08:53-0400 Systolic blood pressure 112 mm[Hg] Андрей Claros RN [facility] 10-06-2022 08:32-0400 Body temperature 98.1 [degF] Андрей Claros RN [facility] 10-06-2022 08:32-0400 Diastolic blood pressure 68 mm[Hg] Андрей Claros RN [facility] 10-06-2022 08:32-0400 Heart rate 68 /min Андрей Claros RN [facility] 10-06-2022 08:32-0400 Respiratory rate 16 /min Андрей Claros RN [facility] 10-06-2022 08:32-0400 SaO2% (BldA) [Mass fraction] 97 % Андрей Claros RN [facility] 10-06-2022 08:32-0400 Systolic blood pressure 108 mm[Hg] Андрей Claros RN [facility] 09-29-2022 10:34-0400 Body temperature 98.01 [degF] Андрей Claros RN [facility] 09-29-2022 10:34-0400 Diastolic blood pressure 60 mm[Hg] Андрей Claros RN [facility] 09-29-2022 10:34-0400 Heart rate 92 /min Андрей Claros RN [facility] 09-29-2022 10:34-0400 Respiratory rate 16 /min Андрей Claros RN [facility] 09-29-2022 10:34-0400 SaO2% (BldA) [Mass fraction] 97 % Андрей Claros RN [facility] 09-29-2022 10:34-0400 Systolic blood pressure 118 mm[Hg] Андрей Claros RN [facility] 09-22-2022 08:23-0400 Body temperature 98.1 [degF] Андрей Claros RN [facility] 09-22-2022 08:23-0400 Diastolic blood pressure 62 mm[Hg] Андрей Claros RN [facility] 09-22-2022 08:23-0400 Heart rate 82 /min Андрей Claros RN [facility] 09-22-2022 08:23-0400 Respiratory rate 16 /min Андрей Claros RN [facility] 09-22-2022 08:23-0400 SaO2% (BldA) [Mass fraction] 99 % Андрей Claros RN [facility] 09-22-2022 08:23-0400 Systolic blood pressure 108 mm[Hg] Андрей Claros RN [facility] 09-15-2022 09:01-0400 Body temperature 98.29 [degF] Анрдей Claros RN [facility] 09-15-2022 09:01-0400 Diastolic blood pressure 62 mm[Hg] Андрей Claros RN [facility] 09-15-2022 09:01-0400 Heart rate 79 /min Андрей Claros RN [facility] 09-15-2022 09:01-0400 Respiratory rate 16 /min Андрей Claros RN [facility] 09-15-2022 09:01-0400 SaO2% (BldA) [Mass fraction] 91 % Андрей Claros RN [facility] 09-15-2022 09:01-0400 Systolic blood pressure 104 mm[Hg] Андрей Claros RN [facility] 09-08-2022 08:47-0400 Body temperature 98.1 [degF] Андрей Claros RN [facility] 09-08-2022 08:47-0400 Diastolic blood pressure 60 mm[Hg] Андрей Claros RN [facility] 09-08-2022 08:47-0400 Heart rate 87 /min Андрей Claros RN [facility] 09-08-2022 08:47-0400 Respiratory rate 16 /min Андрей Claros RN [facility] 09-08-2022 08:47-0400 SaO2% (BldA) [Mass fraction] 99 % Андрей Claros RN [facility] 09-08-2022 08:47-0400 Systolic blood pressure 102 mm[Hg] Андрей Claros RN [facility] 09-01-2022 09:01-0400 Body temperature 97.3 [degF] Андрей Claros RN [facility] 09-01-2022 09:01-0400 Diastolic blood pressure 58 mm[Hg] Андрей Claros RN [facility] 09-01-2022 09:01-0400 Heart rate 92 /min Андрей Claros RN [facility] 09-01-2022 09:01-0400 Respiratory rate 16 /min Андрей Claros RN [facility] 09-01-2022 09:01-0400 SaO2% (BldA) [Mass fraction] 97 % Андрей Claros RN [facility] 09-01-2022 09:01-0400 Systolic blood pressure 112 mm[Hg] Андрей Claros RN [facility] 08-25-2022 11:43-0400 Body temperature 98.2 [degF] Андрей Claros RN [facility] 08-25-2022 11:43-0400 Diastolic blood pressure 76 mm[Hg] Андрей Claros RN [facility] 08-25-2022 11:43-0400 Heart rate 81 /min Андрей Claros RN [facility] 08-25-2022 11:43-0400 Respiratory rate 16 /min Андрей Claros RN [facility] 08-25-2022 11:43-0400 SaO2% (BldA) [Mass fraction] 97 % Андрей Claros RN [facility] 08-25-2022 11:43-0400 Systolic blood pressure 114 mm[Hg] Андрей Claros RN [facility] 08-09-2022 08:39-0400 Body temperature 98.2 [degF] Андрей Claros RN [facility] 08-09-2022 08:39-0400 Diastolic blood pressure 76 mm[Hg] Андрей Claros RN [facility] 08-09-2022 08:39-0400 Heart rate 87 /min Андрей Claros RN [facility] 08-09-2022 08:39-0400 Respiratory rate 16 /min Андрей Claros RN [facility] 08-09-2022 08:39-0400 SaO2% (BldA) [Mass fraction] 95 % Андрей Claros RN [facility] 08-09-2022 08:39-0400 Systolic blood pressure 108 mm[Hg] Андрей Claros RN [facility] 07-21-2022 08:56-0400 Body temperature 98.1 [degF] Андрей Claros RN [facility] 07-21-2022 08:56-0400 Diastolic blood pressure 76 mm[Hg] Андрей Claros RN [facility] 07-21-2022 08:56-0400 Heart rate 76 /min Андрей Claros RN [facility] 07-21-2022 08:56-0400 Respiratory rate 16 /min Андрей Claros RN [facility] 07-21-2022 08:56-0400 SaO2% (BldA) [Mass fraction] 97 % Андрей Claros RN [facility] 07-21-2022 08:56-0400 Systolic blood pressure 106 mm[Hg] Андрей Claros RN [facility] 06-28-2022 11:27-0400 Body temperature 98.01 [degF] Андрей Claros RN [facility] 06-28-2022 11:27-0400 Diastolic blood pressure 62 mm[Hg] Андрей Claros RN [facility] 06-28-2022 11:27-0400 Heart rate 63 /min Андрей Claros RN [facility] 06-28-2022 11:27-0400 Respiratory rate 16 /min Андрей Claros RN [facility] 06-28-2022 11:27-0400 SaO2% (BldA) [Mass fraction] 93 % Андрей Claros RN [facility] 06-28-2022 11:27-0400 Systolic blood pressure 102 mm[Hg] Андрей Claros RN [facility] 06-23-2022 11:21-0400 Body temperature 98.1 [degF] Андрей Claros RN [facility] 06-23-2022 11:21-0400 Diastolic blood pressure 74 mm[Hg] Андрей Claros RN [facility] 06-23-2022 11:21-0400 Heart rate 76 /min Андрей Claros RN [facility] 06-23-2022 11:21-0400 Respiratory rate 16 /min Андрей Claros RN [facility] 06-23-2022 11:21-0400 SaO2% (BldA) [Mass fraction] 98 % Андрей Claros RN [facility] [facility] 06-23-2022 11:21-0400 Systolic blood pressure 114 mm[Hg] Андрей Claros RN [facility] 06-23-2022 09:18-0400 Body temperature 97.9 [degF] Juancho Kaminski PT [facility] 06-23-2022 09:18-0400 Diastolic blood pressure 70 mm[Hg] Juancho Kaminski [facility] 06-23-2022 09:18-0400 Heart rate 80 /min Juancho Kaminski PT [facility] 06-23-2022 09:18-0400 Respiratory rate 18 /min Juancho Kaminski PT [facility] 06-23-2022 09:18-0400 SaO2% (BldA) [Mass fraction] 97 % Juancho Kaminski [facility] 06-23-2022 09:18-0400 Systolic blood pressure 125 mm[Hg] Juancho Kaminski [facility] 06-21-2022 09:08-0400 Body height 163.83 cm [facility], [facility].; [facility]. 06-21-2022 09:08-0400 Body mass index (BMI) [Ratio] 28.56 kg/m2 [facility], [facility].; [employer] [facility], [facility]. 06-21-2022 09:08-0400 Body surface area Derived from formula 1.83 m2 [facility], [facility].; [employer] [facility], [facility]. 06-21-2022 09:08-0400 Body weight 76.66 kg [facility], [facility].; [employer] [facility], [facility]. 06-21-2022 09:08-0400 Diastolic blood pressure 51 mm[Hg] [facility], [facility].; [employer] [facility], [facility]. 06-21-2022 09:08-0400 Heart rate 77 /min [facility], [facility].; [employer] [facility], [facility]. 06-21-2022 09:08-0400 Systolic blood pressure 130 mm[Hg] [facility], [facility].; [employer], [facility]. 06-15-2022 15:37-0400 Body temperature 97.7 [degF] Sravan Martín [facility] 06-15-2022 15:37-0400 Diastolic blood pressure 81 mm[Hg] Sravan Martín [facility] 06-15-2022 15:37-0400 Heart rate 78 /min Sravan Martín [facility] 06-15-2022 15:37-0400 Respiratory rate 18 /min Sravan Martín [employer] [facility] 06-15-2022 15:37-0400 SaO2% (BldA) [Mass fraction] 91 % Sravan Martín [employer] [facility] 06-15-2022 15:37-0400 Systolic blood pressure 132 mm[Hg] Sravan Martín [employer] [facility] 06-09-2022 12:59-0400 Body temperature 97.7 [degF] Sravan Martín [employer] [facility] 06-09-2022 12:59-0400 Diastolic blood pressure 64 mm[Hg] Sravan Martín [employer] [facility] 06-09-2022 12:59-0400 Heart rate 71 /min Sravan Martín [employer] [facility] 06-09-2022 12:59-0400 Respiratory rate 18 /min Sravan Martín [employer] [facility] 06-09-2022 12:59-0400 SaO2% (BldA) [Mass fraction] 93 % Sravan Martín [employer] [facility] 06-09-2022 12:59-0400 Systolic blood pressure 125 mm[Hg] Sravan Martín [employer] [facility] 06-02-2022 09:42-0400 Body temperature 99.1 [degF] Андрей Claros RN [facility] 06-02-2022 09:42-0400 Diastolic blood pressure 58 mm[Hg] Андрей Claros RN [facility] 06-02-2022 09:42-0400 Heart rate 76 /min Андрей Claros RN [facility] 06-02-2022 09:42-0400 Respiratory rate 16 /min Андрей Claros RN [facility] 06-02-2022 09:42-0400 SaO2% (BldA) [Mass fraction] 96 % Андрей Claros RN [facility] 06-02-2022 09:42-0400 Systolic blood pressure 102 mm[Hg] Андрей Claros RN [facility] 06-01-2022 15:40-0400 Body temperature 97.5 [degF] [facility] 06-01-2022 15:40-0400 Diastolic blood pressure 62 mm[Hg] [facility] 06-01-2022 15:40-0400 Respiratory rate 17 /min [facility] 06-01-2022 15:40-0400 Systolic blood pressure 128 mm[Hg] [facility] 05-31-2022 10:08-0400 Body height 170.2 cm Lenin Ramirez MD Work Phone: [facility] 05-31-2022 10:08-0400 Body mass index (BMI) [Ratio] 26.31 kg/m2 Lenin Ramirez MD Work Phone: [facility] 05-31-2022 10:08-0400 Body weight 76.2 kg Lenin Ramirez MD Work Phone: [facility] 05-31-2022 10:08-0400 Diastolic blood pressure 69 mm[Hg] Lenin Ramirez MD Work Phone: [facility] 05-31-2022 10:08-0400 Heart rate 73 /min Lenin Ramirez MD Work Phone: [facility] 05-31-2022 10:08-0400 SaO2% (BldA) [Mass fraction] 99 % Lenin Ramirez MD Work Phone: [facility] 05-31-2022 10:08-0400 Systolic blood pressure 119 mm[Hg] Lenin Ramirez MD Work Phone: [facility] 05-26-2022 09:03-0400 Body temperature 98.1 [degF] Андрей Claros RN [facility] 05-26-2022 09:03-0400 Diastolic blood pressure 56 mm[Hg] Андрей Claros RN [facility] 05-26-2022 09:03-0400 Heart rate 86 /min Андрей Claros RN [facility] 05-26-2022 09:03-0400 Respiratory rate 16 /min Андрйе Claros RN [facility] 05-26-2022 09:03-0400 SaO2% (BldA) [Mass fraction] 98 % Андрей Claros RN [facility] 05-26-2022 09:03-0400 Systolic blood pressure 110 mm[Hg] Андрей Claros RN [facility] 05-24-2022 09:14-0400 Body temperature 97.9 [degF] Sachin Claire PT [facility] 05-24-2022 09:14-0400 Diastolic blood pressure 72 mm[Hg] Sachin Claire PT [facility] 05-24-2022 09:14-0400 Heart rate 63 /min Sachin Claire PT [facility] 05-24-2022 09:14-0400 Respiratory rate 16 /min Sachin Claire PT [facility] 05-24-2022 09:14-0400 SaO2% (BldA) [Mass fraction] 97 % Sachin Claire PT [facility] 05-24-2022 09:14-0400 Systolic blood pressure 117 mm[Hg] Sachin Claire PT [facility] 05-19-2022 10:23-0500 Body temperature 97.3 [degF] [facility] [employer] [facility] 05-19-2022 10:23-0500 Diastolic blood pressure 74 mm[Hg] [facility] 05-19-2022 10:23-0500 Heart rate 77 /min [facility] 05-19-2022 10:23-0500 Respiratory rate 17 /min [facility] 05-19-2022 10:23-0500 SaO2% (BldA) [Mass fraction] 95 % [facility] 05-19-2022 10:23-0500 Systolic blood pressure 138 mm[Hg] [facility] 05-19-2022 08:35-0500 Body temperature 98.49 [degF] Андрей Claros RN [facility] 05-19-2022 08:35-0500 Diastolic blood pressure 54 mm[Hg] Андрей Claros RN [facility] 05-19-2022 08:35-0500 Heart rate 78 /min Андрей Claros RN [facility] 05-19-2022 08:35-0500 Respiratory rate 16 /min Андрей Claros RN [facility] 05-19-2022 08:35-0500 SaO2% (BldA) [Mass fraction] 99 % Андрей Claros RN [facility] 05-19-2022 08:35-0500 Systolic blood pressure 116 mm[Hg] Андрей Hyacinth RN [facility] 05-16-2022 15:05-0500 Body temperature 98.71 [degF] Sravan Martín [employer] [facility] 05-16-2022 15:05-0500 Diastolic blood pressure 89 mm[Hg] Sravan Martín [employer] [facility] 05-16-2022 15:05-0500 Heart rate 79 /min Sravan Martín [employer] [facility] 05-16-2022 15:05-0500 Respiratory rate 18 /min Sravan Martín [employer] [facility] 05-16-2022 15:05-0500 SaO2% (BldA) [Mass fraction] 97 % Sravan Resendiz [facility] 05-16-2022 15:05-0500 Systolic blood pressure 124 mm[Hg] Sravan Resendiz [facility] 05-13-2022 15:12-0500 Body temperature 97.39 [degF] Gena Saab [facility] 05-13-2022 15:12-0500 Diastolic blood pressure 76 mm[Hg] Gena Saab [facility] 05-13-2022 15:12-0500 Heart rate 85 /min Gena Saab [facility] 05-13-2022 15:12-0500 SaO2% (BldA) [Mass fraction] 89 % Gena Saab [facility] 05-13-2022 15:12-0500 Systolic blood pressure 125 mm[Hg] Gena Saab [facility] 05-12-2022 13:43-0500 Body height 163.83 cm Varsha Upton LPN [facility], [facility].; [facility], [facility]. 05-12-2022 13:43-0500 Body mass index (BMI) [Ratio] 29.24 kg/m2 Varsha Upton LPN [facility], [facility].; [facility], [facility]. 05-12-2022 13:43-0500 Body surface area Derived from formula 1.85 m2 Varsha Upton LPN [facility], [facility].; [facility], [facility]. 05-12-2022 13:43-0500 Body weight 78.47 kg Varsha Upton LPN [facility], [facility].; [facility], [facility]. 05-12-2022 13:43-0500 Diastolic blood pressure 67 mm[Hg] Varsha Upton LPN [facility], [facility].; [facility], [facility]. 05-12-2022 13:43-0500 Heart rate 69 /min Varsha Upton LPN [facility], [facility].; [facility], [facility]. 05-12-2022 13:43-0500 Inhaled oxygen concentration 30 % Varsha Upton LPN [facility], [facility].; [facility], [facility]. 05-12-2022 13:43-0500 SaO2% (BldA) [Mass fraction] 98 % Varsha Upton LPN [facility], [facility].; [facility]. 05-12-2022 13:43-0500 Systolic blood pressure 119 mm[Hg] Varsha Upton LPN [facility].; [facility]. 05-12-2022 13:43-0500 2.5 L/min Varsha Upton LPN [facility].; [facility]. 05-12-2022 10:03-0500 Body temperature 97.39 [degF] Андрей Claros RN [facility] 05-12-2022 10:03-0500 Diastolic blood pressure 60 mm[Hg] Андрей Claros RN [facility] 05-12-2022 10:03-0500 Heart rate 72 /min Андрей Claros RN [facility] 05-12-2022 10:03-0500 Respiratory rate 16 /min Андрей Claros RN [facility] 05-12-2022 10:03-0500 SaO2% (BldA) [Mass fraction] 97 % Андрей Claros RN [facility] 05-12-2022 10:03-0500 Systolic blood pressure 116 mm[Hg] Андрей Claros RN [facility] 05-10-2022 10:29-0500 Body temperature 98.6 [degF] Renee MCALLISTER [facility] 05-10-2022 10:29-0500 Diastolic blood pressure 56 mm[Hg] Renee MCALLISTER [facility] 05-10-2022 10:29-0500 Heart rate 88 /min Renee MCALLISTER [facility] 05-10-2022 10:29-0500 Respiratory rate 16 /min Renee MCALLISTER [facility] 05-10-2022 10:29-0500 SaO2% (BldA) [Mass fraction] 98 % Renee MCALLISTER [facility] 05-10-2022 10:29-0500 Systolic blood pressure 114 mm[Hg] Renee MCALLISTER [facility] 05-10-2022 09:35-0500 Body temperature 98.2 [degF] Sravan Martín [employer] [facility] 05-10-2022 09:35-0500 Diastolic blood pressure 54 mm[Hg] Sravan Martín [facility] 05-10-2022 09:35-0500 Heart rate 82 /min Sravan Martín [facility] 05-10-2022 09:35-0500 Respiratory rate 16 /min Sravan Martín [employer] [facility] 05-10-2022 09:35-0500 SaO2% (BldA) [Mass fraction] 96 % Sravan Martín [facility] 05-10-2022 09:35-0500 Systolic blood pressure 111 mm[Hg] Sravan Resendiz [employer] [facility] 05-08-2022 14:28-0500 Body temperature 97.5 [degF] Sachin Claire PT [facility] 05-08-2022 14:28-0500 Diastolic blood pressure 50 mm[Hg] Sachin Claire PT [facility] 05-08-2022 14:28-0500 Heart rate 71 /min Sachin Claire PT [facility] 05-08-2022 14:28-0500 Respiratory rate 16 /min Sachin Claire PT [facility] 05-08-2022 14:28-0500 SaO2% (BldA) [Mass fraction] 97 % Sachin Clarie PT [facility] 05-08-2022 14:28-0500 Systolic blood pressure 97 mm[Hg] Sachin Claire PT [facility] 05-05-2022 12:53-0500 Body temperature 98.2 [degF] Renee MCALLISTER [facility] 05-05-2022 12:53-0500 Diastolic blood pressure 64 mm[Hg] Renee MCALLISTER [facility] 05-05-2022 12:53-0500 Heart rate 77 /min Renee MCALLISTER [facility] 05-05-2022 12:53-0500 Respiratory rate 16 /min Renee MCALLISTER [facility] 05-05-2022 12:53-0500 SaO2% (BldA) [Mass fraction] 95 % Renee MCALLISTER [facility] 05-05-2022 12:53-0500 Systolic blood pressure 114 mm[Hg] Renee MCALLISTER [facility] 05-05-2022 09:58-0500 Body temperature 98.1 [degF] Андрей Claros RN [facility] 05-05-2022 09:58-0500 Diastolic blood pressure 62 mm[Hg] Андрей Claros RN [facility] 05-05-2022 09:58-0500 Heart rate 72 /min Андрей Claros RN [facility] 05-05-2022 09:58-0500 Respiratory rate 16 /min Андрей Claros RN [facility] 05-05-2022 09:58-0500 SaO2% (BldA) [Mass fraction] 98 % Андрей Claros RN [facility] 05-05-2022 09:58-0500 Systolic blood pressure 122 mm[Hg] Андрей Claros RN [facility] 05-02-2022 15:52-0500 Body temperature 97.7 [degF] Gena Saab [facility] 05-02-2022 15:52-0500 Diastolic blood pressure 46 mm[Hg] Gena Saab [facility] 05-02-2022 15:52-0500 Heart rate 76 /min Gena Saab [facility] 05-02-2022 15:52-0500 SaO2% (BldA) [Mass fraction] 98 % Gena Saab [facility] 05-02-2022 15:52-0500 Systolic blood pressure 97 mm[Hg] Gena Saab [facility] 05-01-2022 11:41-0500 Body height 170.2 cm Melida Cook [facility] 05-01-2022 11:41-0500 Body mass index (BMI) [Ratio] 26.63 kg/m2 Melida Cook [facility] 05-01-2022 11:41-0500 Body temperature 97.59 [degF] Melida Cook [facility] 05-01-2022 11:41-0500 Body weight 77.11 kg Melida Cook [facility] 05-01-2022 11:41-0500 Diastolic blood pressure 70 mm[Hg] Melida Cook [facility] 05-01-2022 11:41-0500 Heart rate 70 /min Melida Cook [facility] 05-01-2022 11:41-0500 Respiratory rate 18 /min Melida Coko [facility] 05-01-2022 11:41-0500 SaO2% (BldA) [Mass fraction] 96 % Melida Cook [facility] 05-01-2022 11:41-0500 Systolic blood pressure 110 mm[Hg] Melida Cook [facility] 04-14-2022 13:22-0500 Body height 163.83 cm Varsha Upton LPN [facility], [facility].; [facility], [facility]. 04-14-2022 13:22-0500 Body mass index (BMI) [Ratio] 30.08 kg/m2 Varsha Upton LPN [facility], [facility].; [employer] [facility], [facility]. 04-14-2022 13:22-0500 Body surface area Derived from formula 1.87 m2 Varsha Upton LPN [facility], [facility].; [employer], [facility]. 04-14-2022 13:22-0500 Body weight 80.74 kg Varsha Upton LPN [facility], [facility].; [employer] [facility]. 04-14-2022 13:22-0500 Diastolic blood pressure 71 mm[Hg] Varsha Upton LPN [facility], [facility].; [employer] [facility], [facility]. 04-14-2022 13:22-0500 Heart rate 80 /min Varsha Upton LPN [facility], [facility].; [employer], [facility]. 04-14-2022 13:22-0500 Systolic blood pressure 121 mm[Hg] Varsha Upton LPN [facility], [facility].; [employer], [facility]. 04-05-2022 15:31-0500 Body mass index (BMI) [Ratio] 28.04 kg/m2 Sherry George DO Work Phone: [facility] 04-05-2022 15:31-0500 Body weight 81.19 kg Sherry George DO Work Phone: [facility] 04-05-2022 15:31-0500 Diastolic blood pressure 57 mm[Hg] Sherry George DO Work Phone: [facility] 04-05-2022 15:31-0500 Heart rate 78 /min Sherry George DO Work Phone: [facility] 04-05-2022 15:31-0500 Respiratory rate 16 /min Sherry George DO Work Phone: [facility] 04-05-2022 15:31-0500 Systolic blood pressure 106 mm[Hg] Sherry George DO Work Phone: [facility] 03-29-2022 10:07-0500 Body height 163.83 cm Varsha Obrien MA [employer] [facility] [employer] [facility].; [employer] [facility]. 03-29-2022 10:07-0500 Body mass index (BMI) [Ratio] 30.08 kg/m2 Varsha Obrien MA [facility], [facility].; [employer], [facility]. 03-29-2022 10:07-0500 Body surface area Derived from formula 1.87 m2 Varsha Obrien MA [facility], [facility]. 03-29-2022 10:07-0500 Body weight 80.74 kg Varsha Obrien MA [facility], [facility].; [employer], [facility]. 03-29-2022 10:07-0500 Diastolic blood pressure 64 mm[Hg] Varsha Obrien MA [facility], [facility].; [employer] [facility]. 03-29-2022 10:07-0500 Heart rate 69 /min Varsha Obrien MA [facility], [facility].; [employer], [facility]. 03-29-2022 10:07-0500 Systolic blood pressure 104 mm[Hg] Varsha Obrien MA [facility], [facility].; [employer], [facility]. 02-22-2022 13:15-0500 Body height 163.83 cm Varsha Obrien MA [facility], [facility].; [employer], [facility]. 02-22-2022 13:15-0500 Body mass index (BMI) [Ratio] 32.79 kg/m2 Varsha Obrien MA [facility], [facility].; [employer], [facility]. 02-22-2022 13:15-0500 Body surface area Derived from formula 1.94 m2 Varsha Obrien MA [facility], [facility].; [employer], [facility]. 02-22-2022 13:15-0500 Body weight 88 kg Varsha Obrien MA [employer] [facility], [facility].; [employer], [facility]. 02-22-2022 13:15-0500 Diastolic blood pressure 47 mm[Hg] Varsha Obrien MA [employer] [facility] [employer], [employer]. 02-22-2022 13:15-0500 Heart rate 76 /min Varsha Obrien MA [employer] [facility], [facility].; [employer], [facility]. 02-22-2022 13:15-0500 Inhaled oxygen concentration 20 % Varsha Obrien MA [employer] [facility].; [employer]. 02-22-2022 13:15-0500 SaO2% (BldA) [Mass fraction] 83 % Varsha Obrien MA [employer]. 02-22-2022 13:15-0500 Systolic blood pressure 90 mm[Hg] Varsha Obrien MA [email or web address] 12-23-2021 08:19-0400 Body height 163.83 cm Zack Olmos MD Work Phone: [email or web address]. 12-23-2021 08:19-0400 Body mass index (BMI) [Ratio] 32.79 kg/m2 Zack Olmos MD Work Phone: [email or web address]. 12-23-2021 08:19-0400 Body surface area Derived from formula 1.94 m2 Zack Olmos MD Work Phone: [email or web address]. 12-23-2021 08:19-0400 Body weight 88 kg Zack Olmos MD Work Phone: [email or web address]. 12-23-2021 08:19-0400 Diastolic blood pressure 72 mm[Hg] Zack Olmos MD Work Phone: [employer]. 12-23-2021 08:19-0400 Heart rate 79 /min Zack Olmos MD Work Phone: [employer] 12-23-2021 08:19-0400 Inhaled oxygen concentration 36 % Zack Olmos MD Work Phone: [employer] 12-23-2021 08:19-0400 SaO2% (BldA) [Mass fraction] 98 % Zack Olmos MD Work Phone: [email or web address] [facility] 12-23-2021 08:19-0400 Systolic blood pressure 128 mm[Hg] Zack Olmos MD [facility].; [facility] 12-23-2021 08:19-0400 4 L/min Zack Olmos MD Work Phone: [facility] [employer] [facility] 09-09-2021 14:33-0400 Body temperature 97.9 [degF] [facility] 14:33-0400 Diastolic blood pressure 65 mm[Hg] [facility] 09-09-2021 14:33-0400 Heart rate 67 /min [facility] 09-09-2021 14:33-0400 Respiratory rate 16 /min [facility] 09-09-2021 14:33-0400 SaO2% (BldA) [Mass fraction] 94 % [facility] 09-09-2021 14:33-0400 Systolic blood pressure 117 mm[Hg] [facility] 09-07-2021 15:08-0400 Body temperature 97.81 [degF] [facility] 09-07-2021 15:08-0400 Diastolic blood pressure 73 mm[Hg] [facility] 09-07-2021 15:08-0400 Heart rate 63 /min [facility] 09-07-2021 15:08-0400 Respiratory rate 15 /min [facility] 09-07-2021 15:08-0400 SaO2% (BldA) [Mass fraction] 93 % [facility] 09-07-2021 15:08-0400 Systolic blood pressure 120 mm[Hg] [facility] 09-07-2021 08:34-0400 Body temperature 98.1 [degF] Андрей Claros RN [facility] 09-07-2021 08:34-0400 Diastolic blood pressure 50 mm[Hg] Андрей Claros RN [facility] 09-07-2021 08:34-0400 Heart rate 66 /min Андрей Claros RN [facility] 09-07-2021 08:34-0400 Respiratory rate 16 /min Андрей Claros RN [facility] 09-07-2021 08:34-0400 SaO2% (BldA) [Mass fraction] 95 % Андрей Claros RN [facility] 09-07-2021 08:34-0400 Systolic blood pressure 98 mm[Hg] Андрей Claros RN [facility] 09-01-2021 10:02-0400 Body temperature 97.9 [degF] Donaldo Thrush [facility] 09-01-2021 10:02-0400 Diastolic blood pressure 85 mm[Hg] Donaldo Thrush [facility] 09-01-2021 10:02-0400 Heart rate 67 /min Donaldo Thrush [facility] 09-01-2021 10:02-0400 Respiratory rate 16 /min Donaldo Thrush [facility] 09-01-2021 10:02-0400 SaO2% (BldA) [Mass fraction] 97 % Donaldo Thrush [facility] 09-01-2021 10:02-0400 Systolic blood pressure 121 mm[Hg] Donaldo Thrush [facility] 08-30-2021 10:10-0400 Body temperature 97.2 [degF] Donaldo Thrush [facility] 08-30-2021 10:10-0400 Diastolic blood pressure 63 mm[Hg] Donaldo Thrush [facility] 08-30-2021 10:10-0400 Heart rate 70 /min Donaldo Thrush [facility] 08-30-2021 10:10-0400 Respiratory rate 16 /min Donaldo Thrush [facility] 08-30-2021 10:10-0400 SaO2% (BldA) [Mass fraction] 95 % Donaldo Thrush [facility] 08-30-2021 10:10-0400 Systolic blood pressure 122 mm[Hg] Donaldo Thrush [facility] 08-26-2021 09:42-0400 Body temperature 98.1 [degF] Андрей Claros RN [facility] 08-26-2021 09:42-0400 Diastolic blood pressure 60 mm[Hg] Андрей Claros RN [facility] 08-26-2021 09:42-0400 Heart rate 78 /min Андрей Claros RN [facility] 08-26-2021 09:42-0400 Respiratory rate 16 /min Андрей Claros RN [facility] 08-26-2021 09:42-0400 SaO2% (BldA) [Mass fraction] 97 % Андрей Claros RN [facility] 08-26-2021 09:42-0400 Systolic blood pressure 112 mm[Hg] Андрей Claros RN [facility] 08-19-2021 09:15-0400 Body temperature 97.81 [degF] Андрей Claros RN [facility] 08-19-2021 09:15-0400 Diastolic blood pressure 62 mm[Hg] Андрей Claros RN [facility] 08-19-2021 09:15-0400 Respiratory rate 16 /min Андрей Claros RN [facility] 08-19-2021 09:15-0400 SaO2% (BldA) [Mass fraction] 94 % Андрей Claros RN [facility] 08-19-2021 09:15-0400 Systolic blood pressure 112 mm[Hg] Андрей Claros RN [facility] 08-17-2021 09:58-0400 SaO2% (BldA) [Mass fraction] 99 % Lenin Ramirez MD Work Phone: [facility] 08-17-2021 09:46-0400 Body height 170.2 cm Lenin Ramirez MD Work Phone: [facility] 08-17-2021 09:46-0400 Body mass index (BMI) [Ratio] 29.91 kg/m2 Lenin Ramirez MD Work Phone: [facility] 08-17-2021 09:46-0400 Body weight 86.64 kg Lenin Ramirez MD Work Phone: [facility] 08-17-2021 09:46-0400 Diastolic blood pressure 53 mm[Hg] Lenin Ramirez MD Work Phone: [facility] 08-17-2021 09:46-0400 Heart rate 85 /min Lenin Ramirez MD Work Phone: [facility] 08-17-2021 09:46-0400 Systolic blood pressure 114 mm[Hg] Lenin Ramirez MD Work Phone: [facility] 08-10-2021 09:01-0400 Body temperature 98.01 [degF] Андрей Claros HALEY [facility] 08-10-2021 09:01-0400 Diastolic blood pressure 60 mm[Hg] Андрей Claros RN [facility] 08-10-2021 09:01-0400 Heart rate 94 /min Андрей Claros RN [facility] 08-10-2021 09:01-0400 Respiratory rate 16 /min Андрей Claros RN [facility] 08-10-2021 09:01-0400 SaO2% (BldA) [Mass fraction] 96 % Андрей Claros RN [facility] 08-10-2021 09:01-0400 Systolic blood pressure 106 mm[Hg] Андрей Claros RN [facility] 08-03-2021 09:07-0400 Body temperature 98.2 [degF] Андрей Claros RN [facility] 08-03-2021 09:07-0400 Diastolic blood pressure 68 mm[Hg] Андрей Claros RN [facility] 08-03-2021 09:07-0400 Heart rate 67 /min Андрей Claros RN [facility] 08-03-2021 09:07-0400 Respiratory rate 16 /min Андрей Claros RN [facility] 08-03-2021 09:07-0400 SaO2% (BldA) [Mass fraction] 97 % Андрей Claros RN [facility] 08-03-2021 09:07-0400 Systolic blood pressure 104 mm[Hg] Андрей Claros RN [facility] 07-27-2021 09:02-0400 Body temperature 97.9 [degF] Андрей Claros RN [facility] 07-27-2021 09:02-0400 Diastolic blood pressure 78 mm[Hg] Андрей Claros RN [facility] 07-27-2021 09:02-0400 Heart rate 93 /min Андрей Claros RN [facility] 07-27-2021 09:02-0400 Respiratory rate 16 /min Андрей Claros RN [facility] 07-27-2021 09:02-0400 SaO2% (BldA) [Mass fraction] 93 % Андрей Claros RN [facility] 07-27-2021 09:02-0400 Systolic blood pressure 138 mm[Hg] Андрей Claros RN [facility] 07-15-2021 09:11-0400 Body temperature 98.91 [degF] Андрей Claros RN [facility] 07-15-2021 09:11-0400 Diastolic blood pressure 74 mm[Hg] Андрей Claros RN [facility] 07-15-2021 09:11-0400 Heart rate 76 /min Андрей Claros RN [facility] 07-15-2021 09:11-0400 Respiratory rate 16 /min Андрей Claros RN [facility] 07-15-2021 09:11-0400 SaO2% (BldA) [Mass fraction] 96 % Андрей Claros RN [facility] 07-15-2021 09:11-0400 Systolic blood pressure 118 mm[Hg] Андрей Claros RN [facility] 07-13-2021 09:20-0400 Body temperature 98.01 [degF] Андрей Claros RN [facility] 07-13-2021 09:20-0400 Diastolic blood pressure 62 mm[Hg] Андрей Claros RN [facility] 07-13-2021 09:20-0400 Heart rate 74 /min Андрей Claros RN [facility] 07-13-2021 09:20-0400 Respiratory rate 16 /min Андрей Claros RN [facility] 07-13-2021 09:20-0400 SaO2% (BldA) [Mass fraction] 97 % Андрей Claros RN [facility] 07-13-2021 09:20-0400 Systolic blood pressure 112 mm[Hg] Андрей Claros RN [facility] 07-06-2021 13:24-0400 Body height 163.83 cm Randi Silvestre [facility], [facility].; [employer]. 07-06-2021 13:24-0400 Body mass index (BMI) [Ratio] 31.6 kg/m2 Randi Silvestre [facility], [facility].; Martines Mo[employer] [facility], [facility]. 07-06-2021 13:24-0400 Body surface area Derived from formula 1.91 m2 Randi Silvestre [facility], [facility].; [employer] [facility], [facility]. 07-06-2021 13:24-0400 Body weight 84.82 kg [facility], [facility].; [employer]. 07-06-2021 13:24-0400 Diastolic blood pressure 65 mm[Hg] Randi Silvestre [facility], [facility].; [employer] [facility], [facility]. 07-06-2021 13:24-0400 Heart rate 90 /min Randi Silvestre [facility], [facility].; [employer], [facility]. 07-06-2021 13:24-0400 Inhaled oxygen concentration 32 % Randi Silvestre [facility]. 07-06-2021 13:24-0400 SaO2% (BldA) [Mass fraction] 88 % Randi Silvestre [facility].; [facility], [facility]. 07-06-2021 13:24-0400 Systolic blood pressure 106 mm[Hg] Randi Silvestre [facility].; [facility], [facility]. 07-06-2021 13:24-0400 3 L/min Randi Silvestre [facility], [facility]. 07-06-2021 09:53-0400 Body temperature 98.01 [degF] Андрей Claros RN [facility] 07-06-2021 09:53-0400 Diastolic blood pressure 80 mm[Hg] Андрей Claros RN [facility] 07-06-2021 09:53-0400 Heart rate 76 /min Андрей Claros RN [facility] 07-06-2021 09:53-0400 Respiratory rate 16 /min Андрей Claros RN [facility] 07-06-2021 09:53-0400 SaO2% (BldA) [Mass fraction] 97 % Андрей Claros RN [facility] 07-06-2021 09:53-0400 Systolic blood pressure 136 mm[Hg] Андрей Claros RN [facility] 07-02-2021 09:14-0400 Body height 163.83 cm Varsha Upton LPN [facility], [facility].; [facility], [facility]. 07-02-2021 09:14-0400 Body mass index (BMI) [Ratio] 31.6 kg/m2 Varsha Upton LPN [facility].; [facility], [facility]. 07-02-2021 09:14-0400 Body surface area Derived from formula 1.91 m2 Varsha Upton LPN [facility], [facility].; [facility], [facility]. 07-02-2021 09:14-0400 Body temperature 101.6 [degF] Varsha Upton LPN [facility], [facility].; [facility], [facility]. 07-02-2021 09:14-0400 Body weight 84.82 kg Varsha Upton LPN [facility], [facility].; [facility]. 07-02-2021 09:14-0400 Diastolic blood pressure 70 mm[Hg] Varsha Upton LPN [facility].; [facility]. 07-02-2021 09:14-0400 Heart rate 112 /min Varsha Upton LPN [facility].; [facility]. 07-02-2021 09:14-0400 Inhaled oxygen concentration 20 % Varsha Upton LPN [facility].; [facility]. 07-02-2021 09:14-0400 SaO2% (BldA) [Mass fraction] 78 % Varsha Upton LPN [facility].; [facility] 07-02-2021 09:14-0400 Systolic blood pressure 136 mm[Hg] Varsha Upton LPN [facility].; [facility]. 06-29-2021 09:39-0400 Body temperature 98.1 [degF] Андрей Claros RN [facility] 06-29-2021 09:39-0400 Diastolic blood pressure 62 mm[Hg] Андрей Hyacinth RN [facility] 06-29-2021 09:39-0400 Heart rate 73 /min Андрей Hyacinth RN [facility] 06-29-2021 09:39-0400 Respiratory rate 18 /min Андрей Hyacinth HALEY [facility] 06-29-2021 09:39-0400 Systolic blood pressure 108 mm[Hg] Андрей Hyacinth RN [facility] 06-22-2021 11:15-0400 Body temperature 97.81 [degF] Андрей Claros RN [facility] 06-22-2021 11:15-0400 Diastolic blood pressure 60 mm[Hg] Андрей Hyacinth RN [facility] 06-22-2021 11:15-0400 Heart rate 84 /min Андрей Claros RN [facility] 06-22-2021 11:15-0400 Respiratory rate 16 /min Андрей Claros RN [facility] 06-22-2021 11:15-0400 SaO2% (BldA) [Mass fraction] 89 % Андрей Claros RN [facility] 06-22-2021 11:15-0400 Systolic blood pressure 110 mm[Hg] Андрей Claros RN [facility] 06-15-2021 11:06-0400 Body temperature 98.49 [degF] Андрей Claros RN [facility] 06-15-2021 11:06-0400 Diastolic blood pressure 68 mm[Hg] Андрей Claros RN [facility] 06-15-2021 11:06-0400 Heart rate 78 /min Андрей Claros RN [facility] 06-15-2021 11:06-0400 Respiratory rate 16 /min Андрей Claros RN [facility] 06-15-2021 11:06-0400 SaO2% (BldA) [Mass fraction] 89 % Андрей Claros RN [facility] 06-15-2021 11:06-0400 Systolic blood pressure 104 mm[Hg] Андрей Claros RN [facility] 06-08-2021 10:05-0400 Body temperature 98.01 [degF] Андрей Claros RN [facility] 06-08-2021 10:05-0400 Diastolic blood pressure 58 mm[Hg] Андрей Claros RN [facility] 06-08-2021 10:05-0400 Heart rate 76 /min Андрей Claros RN [facility] 06-08-2021 10:05-0400 Respiratory rate 16 /min Андрей Claros RN [facility] 06-08-2021 10:05-0400 SaO2% (BldA) [Mass fraction] 92 % Андрей Claros RN [facility] 06-08-2021 10:05-0400 Systolic blood pressure 104 mm[Hg] Андрей Claros RN [facility] 06-01-2021 09:29-0400 Body temperature 98.49 [degF] Андрей Claros RN [facility] 06-01-2021 09:29-0400 Diastolic blood pressure 60 mm[Hg] Андрей Claros RN [facility] 06-01-2021 09:29-0400 Heart rate 62 /min Андрей Claros RN [facility] 06-01-2021 09:29-0400 Respiratory rate 18 /min Андрей Claros RN [facility] 06-01-2021 09:29-0400 SaO2% (BldA) [Mass fraction] 94 % Андрей Claros RN [facility] 06-01-2021 09:29-0400 Systolic blood pressure 104 mm[Hg] Андрей Claros RN [facility] 05-26-2021 09:46-0400 Body temperature 97.5 [degF] Андрей Claros RN [facility] 05-26-2021 09:46-0400 Diastolic blood pressure 60 mm[Hg] Андрей Claros RN [facility] 05-26-2021 09:46-0400 Heart rate 77 /min Андрей Claros RN [facility] 05-26-2021 09:46-0400 Respiratory rate 18 /min Андрей Claros RN [facility] 05-26-2021 09:46-0400 SaO2% (BldA) [Mass fraction] 93 % Андрей Claros RN [facility] 05-26-2021 09:46-0400 Systolic blood pressure 138 mm[Hg] Андрей Claros RN [facility] 05-17-2021 10:23-0500 Body temperature 98.4 [degF] Андрей Claros RN [facility] 05-17-2021 10:23-0500 Diastolic blood pressure 60 mm[Hg] Андрей Claros RN [facility] 05-17-2021 10:23-0500 Heart rate 74 /min Андрей Claros RN [facility] 05-17-2021 10:23-0500 Respiratory rate 16 /min Андрей Claros RN [facility] 05-17-2021 10:23-0500 SaO2% (BldA) [Mass fraction] 92 % Андрей Claros RN [facility] 05-17-2021 10:23-0500 Systolic blood pressure 120 mm[Hg] Андрей Claros RN [facility] 05-05-2021 10:49-0500 Body temperature 97.7 [degF] Андрей Claros RN [facility] 05-05-2021 10:49-0500 Diastolic blood pressure 74 mm[Hg] Андрей Claros RN [facility] 05-05-2021 10:49-0500 Heart rate 67 /min Андрей Claros RN [facility] 05-05-2021 10:49-0500 Respiratory rate 16 /min Андрей Claros RN [facility] 05-05-2021 10:49-0500 SaO2% (BldA) [Mass fraction] 96 % Андрей Claros RN [facility] 05-05-2021 10:49-0500 Systolic blood pressure 112 mm[Hg] Андрей Claros RN [facility] 04-28-2021 10:01-0500 Body temperature 97.59 [degF] Андрей Claros RN [facility] 04-28-2021 10:01-0500 Diastolic blood pressure 50 mm[Hg] Андрей Claros RN [facility] 04-28-2021 10:01-0500 Heart rate 76 /min Андрей Claros RN [facility] 04-28-2021 10:01-0500 Respiratory rate 16 /min Андрей Claros RN [facility] 04-28-2021 10:01-0500 SaO2% (BldA) [Mass fraction] 97 % Андрей Claros RN [facility] 04-28-2021 10:01-0500 Systolic blood pressure 112 mm[Hg] Андрей Claros RN [facility] 04-23-2021 11:42-0500 Body temperature 97.59 [degF] Андрей Claros RN [facility] 04-23-2021 11:42-0500 Diastolic blood pressure 70 mm[Hg] Андрей Claros RN [facility] 04-23-2021 11:42-0500 Heart rate 76 /min Андрей Claros RN [facility] 04-23-2021 11:42-0500 Respiratory rate 16 /min Андрей Claros RN [facility] 04-23-2021 11:42-0500 SaO2% (BldA) [Mass fraction] 97 % Андрей Claros RN [facility] 04-23-2021 11:42-0500 Systolic blood pressure 118 mm[Hg] Андрей Claros RN [facility] 04-09-2021 11:23-0500 Body temperature 98.01 [degF] Андрей Claros RN [facility] 04-09-2021 11:23-0500 Diastolic blood pressure 50 mm[Hg] Андрей Claros RN [facility] 04-09-2021 11:23-0500 Heart rate 64 /min Андрей Claors RN [facility] 04-09-2021 11:23-0500 Respiratory rate 16 /min Андрей Claros RN [facility] 04-09-2021 11:23-0500 SaO2% (BldA) [Mass fraction] 95 % Андрей Claros RN [facility] 04-09-2021 11:23-0500 Systolic blood pressure 106 mm[Hg] Андрей Claros RN [facility] 04-01-2021 09:25-0500 Body height 163.83 cm Rosy Tavarez LPN [facility], [facility].; [facility], [facility]. 04-01-2021 09:25-0500 Body mass index (BMI) [Ratio] 31.6 kg/m2 Rosy Tavarez LPN [facility], [facility].; [facility], [facility] 04-01-2021 09:25-0500 Body surface area Derived from formula 1.91 m2 Rosy Tavarez LPN [facility].; [facility]. 04-01-2021 09:25-0500 Body weight 84.82 kg Rosy Tavarez [facility].; [facility]. 04-01-2021 09:25-0500 Diastolic blood pressure 68 mm[Hg] Rosy Tavarez [facility].; [facility]. 04-01-2021 09:25-0500 Heart rate 74 /min [facility]. 04-01-2021 09:25-0500 Systolic blood pressure 118 mm[Hg] Rosy Tavarez [facility].; [facility]. 03-31-2021 10:24-0500 Body temperature 98.2 [degF] Андрей Claros RN [facility] 03-31-2021 10:24-0500 Diastolic blood pressure 60 mm[Hg] Андрей Claros RN [facility] 03-31-2021 10:24-0500 Heart rate 65 /min Андрей Claros RN [facility] 03-31-2021 10:24-0500 Respiratory rate 16 /min Андрей Claros RN [facility] 03-31-2021 10:24-0500 SaO2% (BldA) [Mass fraction] 95 % Андрей Claros RN [facility] 03-31-2021 10:24-0500 Systolic blood pressure 104 mm[Hg] Андрей Claros RN [facility] 03-22-2021 14:10-0500 Body temperature 98.91 [degF] Андрей Claros RN [facility] 03-22-2021 14:10-0500 Diastolic blood pressure 58 mm[Hg] Андрей Claros RN [facility] 03-22-2021 14:10-0500 Heart rate 68 /min Андрей Claros RN [facility] 03-22-2021 14:10-0500 Respiratory rate 16 /min Андрей Claros RN [facility] 03-22-2021 14:10-0500 SaO2% (BldA) [Mass fraction] 97 % Андрей Claros RN [facility] 03-22-2021 14:10-0500 Systolic blood pressure 104 mm[Hg] Андрей Claros RN [facility] 03-19-2021 15:04-0500 Body temperature 97.9 [degF] Андрей Claros RN [facility] 03-19-2021 15:04-0500 Diastolic blood pressure 48 mm[Hg] Андрей Claros RN [facility] 03-19-2021 15:04-0500 Heart rate 62 /min Андрей Claros RN [facility] 03-19-2021 15:04-0500 Respiratory rate 16 /min Анрдей Claros RN [facility] 03-19-2021 15:04-0500 SaO2% (BldA) [Mass fraction] 96 % Андрей Claros RN [facility] 03-19-2021 15:04-0500 Systolic blood pressure 98 mm[Hg] Андрей Claros RN [facility] 03-17-2021 09:16-0500 Body temperature 98.8 [degF] Ewa Garcia [facility] [facility] 03-17-2021 09:16-0500 Diastolic blood pressure 58 mm[Hg] Ewa Garcia [facility] 03-17-2021 09:16-0500 Heart rate 74 /min Ewa Garcia [facility] 03-17-2021 09:16-0500 Respiratory rate 16 /min Ewa Garcia [facility] 03-17-2021 09:16-0500 SaO2% (BldA) [Mass fraction] 95 % Ewa Garcia [facility] 03-17-2021 09:16-0500 Systolic blood pressure 116 mm[Hg] Ewa Garcia [facility] 03-10-2021 12:19-0500 Body temperature 98.1 [degF] Андрей Claros RN [facility] 03-10-2021 12:19-0500 Diastolic blood pressure 60 mm[Hg] Андрей Claros RN [facility] 03-10-2021 12:19-0500 Heart rate 64 /min Андрей Claros RN [facility] 03-10-2021 12:19-0500 Respiratory rate 14 /min Андрей Claros RN [facility] 03-10-2021 12:19-0500 SaO2% (BldA) [Mass fraction] 97 % Андрей Claros RN [facility] 03-10-2021 12:19-0500 Systolic blood pressure 104 mm[Hg] Андрей Claros RN [facility] 03-05-2021 11:46-0500 Body mass index (BMI) [Ratio] 28.19 kg/m2 Melida Cook [facility] 03-05-2021 11:46-0500 Body temperature 97.59 [degF] Melida Cook RN [facility] 03-05-2021 11:46-0500 Body weight 81.65 kg Melida Cook RN [facility] 03-05-2021 11:46-0500 Diastolic blood pressure 70 mm[Hg] Melida Cook RN [facility] 03-05-2021 11:46-0500 Heart rate 65 /min Melida Cook RN [facility] 03-05-2021 11:46-0500 Respiratory rate 18 /min Melida Cook RN [facility] 03-05-2021 11:46-0500 SaO2% (BldA) [Mass fraction] 96 % Melida Cook [facility] 03-05-2021 11:46-0500 Systolic blood pressure 110 mm[Hg] Melida Cook [facility] 03-03-2021 11:38-0500 Body temperature 98.01 [degF] Андрей Claros RN [facility] 03-03-2021 11:38-0500 Diastolic blood pressure 62 mm[Hg] Андрей Claros RN [facility] 03-03-2021 11:38-0500 Heart rate 77 /min Андрей Claros RN [facility] 03-03-2021 11:38-0500 Respiratory rate 16 /min Андрей Claros RN [facility] 03-03-2021 11:38-0500 SaO2% (BldA) [Mass fraction] 98 % Андрей Claros RN [facility] 03-03-2021 11:38-0500 Systolic blood pressure 104 mm[Hg] Андрей Claros RN [facility] 02-19-2021 12:01-0500 Body temperature 98.01 [degF] Rosy Rodriguez RN [facility] 02-19-2021 12:01-0500 Heart rate 70 /min Rosy Rodriguez RN [facility] 02-19-2021 12:01-0500 Respiratory rate 16 /min Rosy Rodriguez RN [facility] 02-19-2021 12:01-0500 SaO2% (BldA) [Mass fraction] 98 % Rosy Rodriguez RN [facility] 02-15-2021 13:04-0500 Body temperature 98.01 [degF] Rosy Rodriguez RN [facility] 02-15-2021 13:04-0500 Diastolic blood pressure 70 mm[Hg] Rosy Rodriguez RN [facility] 02-15-2021 13:04-0500 Heart rate 77 /min Rosy Rodriguez RN [facility] 02-15-2021 13:04-0500 Respiratory rate 16 /min Rosy Rodriguez RN [facility] 02-15-2021 13:04-0500 SaO2% (BldA) [Mass fraction] 94 % Rosy Rodriguez RN [facility] 02-15-2021 13:04-0500 Systolic blood pressure 120 mm[Hg] Rosy Rodriguez RN [facility] 02-05-2021 14:04-0500 Body temperature 98.01 [degF] Rosy Rodriguez RN [facility] 02-05-2021 14:04-0500 Heart rate 70 /min Rosy Rodriguez RN [facility] 02-05-2021 14:04-0500 Respiratory rate 16 /min Rosy Rodriguez RN [facility] 02-05-2021 14:04-0500 SaO2% (BldA) [Mass fraction] 96 % Rosy Rodriguez RN [facility] 02-03-2021 10:57-0500 Body height 170.2 cm Jalil Sparks MD Work Phone: [facility] 02-03-2021 10:57-0500 Body mass index (BMI) [Ratio] 27.91 kg/m2 Jalil Sparks MD Work Phone: [facility] 02-03-2021 10:57-0500 Body temperature 97.3 [degF] Jalil Sparks MD Work Phone: [facility] 02-03-2021 10:57-0500 Body weight 80.83 kg Jalil Sparks MD Work Phone: [facility] 02-03-2021 10:57-0500 Diastolic blood pressure 58 mm[Hg] Jalil Sparks MD Work Phone: [facility] 02-03-2021 10:57-0500 Heart rate 75 /min Jalil Sparsk MD Work Phone: [facility] 02-03-2021 10:57-0500 SaO2% (BldA) [Mass fraction] 96 % Jalil Sparks MD Work Phone: [facility] 02-03-2021 10:57-0500 Systolic blood pressure 111 mm[Hg] Jalil Sparks MD Work Phone: [facility] 02-03-2021 08:24-0500 Body temperature 98.1 [degF] Bonnie Ferguson RN [facility] 02-03-2021 08:24-0500 Diastolic blood pressure 50 mm[Hg] Bonnie Ferguson RN [facility] 02-03-2021 08:24-0500 Heart rate 75 /min Bonnie Ferguson RN [facility] 02-03-2021 08:24-0500 Respiratory rate 18 /min Bonnie Ferguson RN [facility] 02-03-2021 08:24-0500 SaO2% (BldA) [Mass fraction] 96 % Bonnie Ferguson [facility] 02-03-2021 08:24-0500 Systolic blood pressure 132 mm[Hg] Bonnie Ferguson RN [facility] 02-01-2021 14:13-0500 Body temperature 98.01 [degF] Rosy Rodriguez RN [facility] 02-01-2021 14:13-0500 Respiratory rate 16 /min Rosy Rodriguez RN [facility] 02-01-2021 14:13-0500 SaO2% (BldA) [Mass fraction] 96 % Rosy Rodriguez RN [facility] 01-29-2021 00:00-0500 Body temperature 98.01 [degF] Rosy Rodriguez RN [facility] 01-29-2021 00:00-0500 Diastolic blood pressure 60 mm[Hg] Rosy Rodriguez RN [facility] 01-29-2021 00:00-0500 Heart rate 78 /min Rosy Rodriguez RN [facility] 01-29-2021 00:00-0500 Respiratory rate 16 /min Rosy Jeannette RN [facility] 01-29-2021 00:00-0500 SaO2% (BldA) [Mass fraction] 96 % Rosy Rodriguez RN [facility] 01-29-2021 00:00-0500 Systolic blood pressure 110 mm[Hg] Rosy Rodriguez RN [facility] 01-27-2021 10:02-0500 Body temperature 98.01 [degF] Rosy Rodriguez RN [facility] 01-27-2021 10:02-0500 Diastolic blood pressure 60 mm[Hg] Rosy Rodriguez RN [facility] 01-27-2021 10:02-0500 Heart rate 80 /min Rosy Rodriguez RN [facility] 01-27-2021 10:02-0500 Respiratory rate 16 /min Rosy Rodriguez RN [facility] 01-27-2021 10:02-0500 SaO2% (BldA) [Mass fraction] 94 % Rosy Jeannette RN [facility] 01-27-2021 10:02-0500 Systolic blood pressure 110 mm[Hg] Rosy Jennifer RN [facility] 01-25-2021 10:00-0500 Body temperature 98.01 [degF] Orsy Jennifer RN [facility] 01-25-2021 10:00-0500 Diastolic blood pressure 70 mm[Hg] Rosy Rodriguez RN [facility] 01-25-2021 10:00-0500 Heart rate 88 /min Rosy Jennifer RN [facility] 01-25-2021 10:00-0500 Respiratory rate 16 /min Rosy Jennifer RN [facility] 01-25-2021 10:00-0500 SaO2% (BldA) [Mass fraction] 98 % Rosy Jeannette RN [facility] 01-25-2021 10:00-0500 Systolic blood pressure 110 mm[Hg] Rosy Jennifer RN [facility] 01-22-2021 13:55-0500 Body mass index (BMI) [Ratio] 27.72 kg/m2 Rosy Jennifer RN [facility] 01-22-2021 13:55-0500 Body weight 80.29 kg Rosy Jennifer RN [facility] 01-22-2021 13:55-0500 Diastolic blood pressure 80 mm[Hg] Rosy Rodriguez RN [facility] 01-22-2021 13:55-0500 Systolic blood pressure 101 mm[Hg] Rosy Rodriguez RN [facility] 01-20-2021 10:22-0500 Body temperature 98.2 [degF] Alyssa Cortez RN [facility] 01-20-2021 10:22-0500 Heart rate 63 /min Alyssa Cortez RN [facility] 01-20-2021 10:22-0500 SaO2% (BldA) [Mass fraction] 93 % Alyssa Cortez RN [facility] 01-13-2021 15:21-0400 Body height 170.2 cm Jalil Sparks MD Work Phone: [place] [address]-03-2021 15:21-0400 Body temperature 97.59 [degF] Jalil Sparks MD Work Phone: [facility] 01-13-2021 15:21-0400 Diastolic blood pressure 73 mm[Hg] Jalil Sparks MD Work Phone: [facility] 01-13-2021 15:21-0400 Heart rate 68 /min Jalil Sparks MD Work Phone: [facility] 01-13-2021 15:21-0400 SaO2% (BldA) [Mass fraction] 91 % Jalil Sparks MD Work Phone: [facility] 01-13-2021 15:21-0400 Systolic blood pressure 146 mm[Hg] Jalil Sparks MD Work Phone: [facility] 01-04-2021 14:50-0400 Body height 170.2 cm 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 Work Phone: [facility] 01-04-2021 14:50-0400 Body mass index (BMI) [Ratio] 29.76 kg/m2 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 Work Phone: [facility] 01-04-2021 14:50-0400 Body weight 86.18 kg 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 Work Phone: [facility] 01-04-2021 14:50-0400 Diastolic blood pressure 57 mm[Hg] 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 Work Phone: [facility] 01-04-2021 14:50-0400 Heart rate 74 /min 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 Work Phone: [facility] 01-04-2021 14:50-0400 Systolic blood pressure 132 mm[Hg] 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 Work Phone: [facility] 12-17-2020 12:11-0400 Body height 170.2 cm Lenin Ramirez MD Work Phone: [facility] 12-17-2020 12:11-0400 Body mass index (BMI) [Ratio] 30.23 kg/m2 Lenin Ramirez MD Work Phone: [facility] 12-17-2020 12:11-0400 Body weight 87.54 kg Lenin Ramirez MD Work Phone: [facility] 12-17-2020 12:11-0400 Diastolic blood pressure 77 mm[Hg] Lenin Ramirez MD Work Phone: [facility] 12-17-2020 12:11-0400 Heart rate 63 /min Lenin Ramirez MD Work Phone: [facility] 12-17-2020 12:11-0400 SaO2% (BldA) [Mass fraction] 90 % Lenin Ramirez MD Work Phone: [facility] 12-17-2020 12:11-0400 Systolic blood pressure 129 mm[Hg] Lenin Ramirez MD Work Phone: [facility] 11-23-2020 12:52-0400 Body height 170.2 cm Park Hawk CNP Work Phone: [facility] 11-23-2020 12:52-0400 Body mass index (BMI) [Ratio] 29.44 kg/m2 Park Hawk CNP Work Phone: [facility] 11-23-2020 12:52-0400 Body weight 85.28 kg Park [employer] CNP Work Phone: [facility] 11-23-2020 12:52-0400 Diastolic blood pressure 76 mm[Hg] Park Hawk CNP Work Phone: [facility] 11-23-2020 12:52-0400 Heart rate 63 /min 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 Work Phone: [facility] 11-23-2020 12:52-0400 SaO2% (BldA) [Mass fraction] 90 % Prak Hawk 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 Work Phone: [facility] 11-23-2020 12:52-0400 Systolic blood pressure 131 mm[Hg] 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 Work Phone: [facility] 10-26-2020 07:55-0400 Body height 170.2 cm Park Hawk CNP Work Phone: [facility] 10-26-2020 07:55-0400 Body mass index (BMI) [Ratio] 29.29 kg/m2 Park Hawk CNP Work Phone: [facility] 10-26-2020 07:55-0400 Body weight 84.82 kg Park Hawk CNP Work Phone: [facility] 10-26-2020 07:55-0400 Diastolic blood pressure 77 mm[Hg] Park Hawk CNP Work Phone: [facility] 10-26-2020 07:55-0400 Heart rate 66 /min Park Hawk CNP Work Phone: [facility] 10-26-2020 07:55-0400 SaO2% (BldA) [Mass fraction] 84 % Park Hawk CNP Work Phone: [facility] 10-26-2020 07:55-0400 Systolic blood pressure 143 mm[Hg] Park Hawk CNP Work Phone: [facility] 10-21-2020 08:11-0400 Diastolic blood pressure 89 mm[Hg] Mil Dee MD Work Phone: [facility] 10-21-2020 08:11-0400 Systolic blood pressure 164 mm[Hg] Mil Dee MD Work Phone: [facility] 10-21-2020 08:07-0400 Body height 170.2 cm Mil Dee MD Work Phone: [facility] 10-21-2020 08:07-0400 Body temperature 98.2 [degF] Mil Dee MD Work Phone: [facility] 10-21-2020 08:07-0400 Heart rate 74 /min Mil Dee MD Work Phone: [facility] 10-06-2020 08:15-0400 Body height 163.83 cm [facility]. 10-06-2020 08:15-0400 Body mass index (BMI) [Ratio] 31.26 kg/m2 Muna Townsend [facility], [facility].; [facility]. 10-06-2020 08:15-0400 Body surface area Derived from formula 1.9 m2 [facility], [facility].; [facility]. 10-06-2020 08:15-0400 Body weight 83.92 kg Muna Townsend [facility], [facility].; [facility]. 10-06-2020 08:15-0400 Diastolic blood pressure 73 mm[Hg] [facility], [facility].; [facility], [facility]. 10-06-2020 08:15-0400 Heart rate 75 /min [facility], [facility].; [facility]. 10-06-2020 08:15-0400 Inhaled oxygen concentration 20 % [facility]. 10-06-2020 08:15-0400 SaO2% (BldA) [Mass fraction] 97 % [facility], [facility].; [employer] [facility], [facility]. 10-06-2020 08:15-0400 Systolic blood pressure 152 mm[Hg] [facility], [facility].; [employer] [facility] [employer] [employer] [facility]. 09-30-2020 08:21-0400 Body mass index (BMI) [Ratio] 28.35 kg/m2 Leonila Walls RN [facility] 09-30-2020 [id number] Body weight 82.1 kg Leonila Walls RN [facility] 09-30-2020 08:21-0400 Diastolic blood pressure 73 mm[Hg] Leonila Walls RN [facility] 09-30-2020 08:21-0400 Heart rate 55 /min Leonila Walls RN [facility] 09-30-2020 08:21-0400 Respiratory rate 16 /min Leonila Walls RN [facility] 09-30-2020 [id number] SaO2% (BldA) [Mass fraction] 98 % Leonila Walls RN [facility] 09-30-2020 [id number] Systolic blood pressure 129 mm[Hg] Leonila Walls RN [facility] 08-11-2020 08:26-0400 Body height 163.83 cm [facility], [facility].; [facility]. 08-11-2020 [id number] Body mass index (BMI) [Ratio] 33.29 kg/m2 [facility], [facility].; [facility]. 08-11-2020 08:0400 Body surface area Derived from formula 1.95 m2 [facility], [facility].; [facility], [facility]. 08-11-2020 08:0400 Body weight 89.36 kg [facility], [facility].; [facility], [facility]. 08-11-2020 [id number] Diastolic blood pressure 64 mm[Hg] [facility], [facility].; [facility], [facility]. 08-11-2020 08:0400 Heart rate 71 /min [facility], [facility].; [facility], [facility]. 08-11-2020 08:26-0400 Systolic blood pressure 138 mm[Hg] [facility], [facility].; [employer] [facility], [facility]. 08-03-2020 [id number] Body mass index (BMI) [Ratio] 30.85 kg/m2 Leonila Walls RN [facility] 08-03-2020 13:0400 Body weight 89.36 kg Leonila Walls RN [facility] 08-03-2020 13:0400 Diastolic blood pressure 76 mm[Hg] Leonila Walls RN [facility] 08-03-2020 [id number] Heart rate 68 /min Leonila Walls RN [facility] 08-03-2020 13:0400 Respiratory rate 16 /min Leonila [facility] 08-03-2020 13:21-0400 SaO2% (BldA) [Mass fraction] 93 % Leonila [facility] 08-03-2020 13:21-0400 Systolic blood pressure 139 mm[Hg] Leonilaeloy Walls [facility] 06-19-2020 10:40-0400 BMI (Body Mass Index) 31.92 kg/m2 [facility] 06-19-2020 10:40-0400 Body weight 92.44 kg [facility] 06-19-2020 10:40-0400 BP Diastolic 79 mm[Hg] [facility] 06-19-2020 10:40-0400 BP Systolic 147 mm[Hg] [facility] 06-19-2020 10:40-0400 Pulse (Heart Rate) 62 /min [facility] 06-19-2020 10:40-0400 Pulse Oximetry 94 % [facility] 06-19-2020 10:40-0400 Respiratory Rate 16 /min [facility] 04-20-2020 10:18-0500 BMI (Body Mass Index) 32.11 kg/m2 [facility] 04-20-2020 10:18-0500 Body weight 92.99 kg [facility] 04-20-2020 10:18-0500 BP Diastolic 76 mm[Hg] [facility] 04-20-2020 10:18-0500 BP Systolic 129 mm[Hg] [facility] 04-20-2020 10:18-0500 Pulse (Heart Rate) 66 /min [facility] 04-20-2020 10:18-0500 Pulse Oximetry 96 % [facility] 04-20-2020 10:18-0500 Respiratory Rate 16 /min [facility] 04-07-2020 09:08-0500 Body height 163.83 cm Muna Townsend LPN [facility], [facility]. 04-07-2020 09:08-0500 Body mass index (BMI) [Ratio] 34.98 kg/m2 [facility], [facility].; [facility], [facility]. 04-07-2020 09:08-0500 Body surface area Derived from formula 2 m2 Muna Townsend [facility].; [facility], [facility]. 04-07-2020 09:08-0500 Body weight 93.9 kg Muna Townsend [facility], [facility].; [facility], [facility]. 04-07-2020 09:08-0500 Diastolic blood pressure 76 mm[Hg] Muna Towsnend [facility], [facility].; [facility], [facility]. 04-07-2020 09:08-0500 Heart rate 91 /min Muna Townsend [facility], [facility].; [facility], [facility]. 04-07-2020 09:08-0500 Systolic blood pressure 137 mm[Hg] Muna Townsend [facility], [facility].; [facility], [facility]. 03-26-2020 10:27-0500 BP Diastolic 64 mm[Hg] [facility] 03-26-2020 10:27-0500 BP Systolic 130 mm[Hg] Lenin Ramirez [facility] 03-26-2020 10:27-0500 Pulse (Heart Rate) 62 /min Lenin Ramirez [facility] 02-17-2020 10:14-0500 BMI (Body Mass Index) 31.84 kg/m2 [facility] 02-17-2020 10:14-0500 Body weight 92.22 kg [facility] 02-17-2020 10:14-0500 BP Diastolic 74 mm[Hg] [facility] 02-17-2020 10:14-0500 BP Systolic 140 mm[Hg] [facility] 02-17-2020 10:14-0500 Pulse (Heart Rate) 62 /min [facility] 02-17-2020 10:14-0500 Pulse Oximetry 97 % [facility] 02-17-2020 10:14-0500 Respiratory Rate 16 /min [facility] 12-23-2019 10:12-0400 BMI (Body Mass Index) 32.7 kg/m2 [facility] 12-23-2019 10:12-0400 Body weight 94.71 kg [facility] 12-23-2019 10:12-0400 BP Diastolic 73 mm[Hg] [facility] 12-23-2019 10:12-0400 BP Systolic 136 mm[Hg] [facility] 12-23-2019 10:12-0400 Pulse (Heart Rate) 62 /min [facility] 12-23-2019 10:120400 Pulse Oximetry 95 % [facility] 12-23-2019 10:120400 Respiratory Rate 16 /min [facility] 11-27-2019 11:10-0400 Body height 163.83 cm Mnua Townsend [employer] [facility], [facility].; [employer] [facility], [employer]. 11-27-2019 11:10-0400 Body mass index (BMI) [Ratio] 36.5 kg/m2 [facility] [employer] [facility], [employer]. 11-27-2019 11:10-0400 Body surface area Derived from formula 2.03 m2 [facility], [facility].; [employer] [facility], [employer]. 11-27-2019 11:10-0400 Body weight 97.98 kg [facility] [employer] [facility], [employer]. 11-27-2019 11:10-0400 Diastolic blood pressure 82 mm[Hg] Adeline Stuckey [facility] [employer] [facility], [employer]. 11-27-2019 11:10-0400 Heart rate 69 /min [facility].; [employer] [facility], [employer]. 11-27-2019 11:10-0400 Inhaled oxygen concentration 20 % [facility], [facility].; [employer], [employer]. 11-27-2019 11:10-0400 SaO2% (BldA) [Mass fraction] 93 % [facility], [facility].; [facility]. 11-27-2019 11:10-0400 Systolic blood pressure 160 mm[Hg] Muna Townsend ASHER [facility], [facility].; [facility] 11-04-2019 10:07-0400 BMI (Body Mass Index) 34.3 kg/m2 [facility] 11-04-2019 10:07-0400 Body weight 99.34 kg [facility] 11-04-2019 10:07-0400 BP Diastolic 83 mm[Hg] [facility] 11-04-2019 10:07-0400 BP Systolic 150 mm[Hg] [facility] 11-04-2019 10:07-0400 Pulse (Heart Rate) 68 /min [facility] 11-04-2019 10:07-0400 Pulse Oximetry 95 % [facility] 11-04-2019 10:07-0400 Respiratory Rate 16 /min [facility] 09-20-2019 08:49-0400 Body height 163.83 cm Umu Nye RN [facility], [facility].; [employer] [facility] [employer] [facility]. 09-20-2019 08:49-0400 Body mass index (BMI) [Ratio] 38.19 kg/m2 Umu Nye RN [facility], [facility].; [facility], [facility]. 09-20-2019 08:49-0400 Body surface area Derived from formula 2.07 m2 Umu Nye RN [facility], [facility].; [facility]. 09-20-2019 08:49-0400 Body weight 102.51 kg Umu Nye RN [facility], [facility].; [employer] [facility], [facility]. 09-20-2019 08:49-0400 Diastolic blood pressure 72 mm[Hg] Umu Nye RN [facility], [facility].; [facility], [facility]. 09-20-2019 08:49-0400 Heart rate 69 /min Umu Nye RN [facility], [facility].; [employer] [facility], [facility]. 09-20-2019 08:49-0400 Systolic blood pressure 129 mm[Hg] Umu Nye RN [facility], [facility].; [facility] 09-09-2019 10:12-0400 BMI (Body Mass Index) 33.99 kg/m2 [facility] 09-09-2019 10:12-0400 Body weight 98.43 kg [facility] 09-09-2019 10:12-0400 BP Diastolic 84 mm[Hg] [facility] 09-09-2019 10:12-0400 BP Systolic 152 mm[Hg] [facility] 09-09-2019 10:12-0400 Pulse (Heart Rate) 72 /min [facility] 09-09-2019 10:12-0400 Pulse Oximetry 96 % [facility] 09-09-2019 10:12-0400 Respiratory Rate 16 /min [facility] 07-31-2019 09:20-0400 BMI (Body Mass Index) 34.44 kg/m2 [facility] 07-31-2019 09:20-0400 Body weight 99.75 kg [facility] 07-31-2019 09:20-0400 BP Diastolic 88 mm[Hg] [facility] 07-31-2019 09:20-0400 BP Systolic 169 mm[Hg] [facility] 07-31-2019 09:20-0400 Pulse (Heart Rate) 72 /min [facility] 07-31-2019 09:20-0400 Pulse Oximetry 94 % [facility] 07-31-2019 09:20-0400 Respiratory Rate 16 /min [facility] 06-06-2019 13:03-0400 Body height 163.83 cm Rosy Tavarez LPN [facility], [facility]. 06-06-2019 13:03-0400 Body mass index (BMI) [Ratio] 36.67 kg/m2 Rosy Tavarez LPN [facility], [facility]. 06-06-2019 13:03-0400 Body surface area Derived from formula 2.04 m2 Rosy Tavarez LPN [facility], [facility]. 06-06-2019 13:03-0400 Body temperature 98 [degF] Rosy [facility]labach [facility].; [employer] [facility] [employer]. 06-06-2019 13:03-0400 Body weight 98.43 kg Rosy Balllabach [facility].; [employer] [facility] South[facility] Net. 06-06-2019 13:03-0400 Diastolic blood pressure 77 mm[Hg] Rosy Allison Corby [facility].; [employer] [facility] South[facility] Net. 06-06-2019 13:03-0400 Heart rate 81 /min Rosy Balllabach [facility].; [employer] [facility]. 06-06-2019 13:03-0400 Inhaled oxygen concentration 20 % Rosy Allison Corby [facility] [employer].; [employer] [facility] Net 06-06-2019 13:03-0400 SaO2% (BldA) [Mass fraction] 97 % Rosy Allison Corby [facility] [employer] [facility] South[facility] [employer] [facility].; [employer]. 06-06-2019 13:03-0400 Systolic blood pressure 168 mm[Hg] Rosy Balllabach [facility].; [employer] [facility]. 05-24-2019 10:08-0400 BMI (Body Mass Index) 34.24 kg/m2 [facility] 05-24-2019 10:08-0400 Body weight 99.16 kg [facility] 05-24-2019 10:08-0400 BP Diastolic 87 mm[Hg] [facility] 05-24-2019 10:08-0400 BP Systolic 139 mm[Hg] [facility] 05-24-2019 10:08-0400 Pulse (Heart Rate) 70 /min [facility] 05-24-2019 10:08-0400 Pulse Oximetry 93 % [facility] 05-24-2019 10:08-0400 Respiratory Rate 16 /min [facility] 03-27-2019 08:27-0500 Body height 163.83 cm Zack Olmos MD Work Phone: [employer].; [employer]. 03-27-2019 08:27-0500 Body mass index (BMI) [Ratio] 38.19 kg/m2 Zack Olmos MD Work Phone: [employer].; [employer]. 03-27-2019 08:27-0500 Body surface area Derived from formula 2.07 m2 Zack Olmos MD Work Phone: [employer].; [employer]. 03-27-2019 08:27-0500 Body weight 102.51 kg Zack Olmos MD Work Phone: [employer].; [employer]. 03-27-2019 08:27-0500 Diastolic blood pressure 84 mm[Hg] Zack Olmos MD Work Phone: [employer] 03-27-2019 08:27-0500 Heart rate 66 /min Zack Olmos MD Work Phone: [employer] 03-27-2019 08:27-0500 Systolic blood pressure 157 mm[Hg] aZck Olmos MD Work Phone: [employer].; [employer]. 03-25-2019 10:21-0500 BP Diastolic 88 mm[Hg] [facility] 03-25-2019 10:21-0500 BP Systolic 178 mm[Hg] [facility] 03-25-2019 10:16-0500 Pulse (Heart Rate) 66 /min [facility] 03-25-2019 10:16-0500 Pulse Oximetry 94 % [facility] 03-25-2019 10:16-0500 Respiratory Rate 16 /min [facility] 02-28-2019 13:45-0500 BMI (Body Mass Index) 35.63 kg/m2 Lenin Fraserleatha [facility] 02-28-2019 13:45-0500 Body weight 103.19 kg Lenin James [facility] 02-28-2019 13:45-0500 BP Diastolic 82 mm[Hg] Lenin Ramirez [facility] 02-28-2019 13:45-0500 BP Systolic 153 mm[Hg] Lenin Ramirez [facility] 02-28-2019 13:45-0500 Height 170.2 cm Lenin Ramirez [facility] 02-28-2019 13:45-0500 Pulse (Heart Rate) 67 /min Lenin Ramirez [facility] 02-28-2019 13:45-0500 Pulse Oximetry 95 % Lenin Ramirez [facility] 01-28-2019 11:13-0500 BMI (Body Mass Index) 34.97 kg/m2 [facility] 01-28-2019 11:13-0500 Body weight 101.29 kg [facility] 01-28-2019 11:13-0500 BP Diastolic 85 mm[Hg] [facility] 01-28-2019 11:13-0500 BP Systolic 166 mm[Hg] [facility] 01-28-2019 11:13-0500 Pulse (Heart Rate) 62 /min [facility] 01-28-2019 11:13-0500 Pulse Oximetry 95 % [facility] 01-28-2019 11:13-0500 Respiratory Rate 16 /min [facility] 12-31-2018 10:05-0400 BMI (Body Mass Index) 34.54 kg/m2 [facility] 12-31-2018 10:05-0400 Body weight 100.02 kg [facility] 12-31-2018 10:05-0400 BP Diastolic 62 mm[Hg] [facility] 12-31-2018 10:05-0400 BP Systolic 150 mm[Hg] [facility] 12-31-2018 10:05-0400 Pulse (Heart Rate) 66 /min [facility] 12-31-2018 10:05-0400 Pulse Oximetry 94 % [facility] 12-31-2018 10:05-0400 Respiratory Rate 16 /min [facility] 11-30-2018 10:31-0400 BMI (Body Mass Index) 34.5 kg/m2 [facility] 11-30-2018 10:31-0400 Body weight 99.93 kg [facility] 11-30-2018 10:31-0400 BP Diastolic 88 mm[Hg] [facility] 11-30-2018 10:31-0400 BP Systolic 168 mm[Hg] [facility] 11-30-2018 10:31-0400 Pulse (Heart Rate) 62 /min [facility] 11-30-2018 10:31-0400 Pulse Oximetry 95 % [facility] 11-30-2018 10:31-0400 Respiratory Rate 16 /min [facility] 11-09-2018 10:09-0400 BMI (Body Mass Index) 34.43 kg/m2 [facility] 11-09-2018 10:09-0400 Body weight 99.7 kg [facility] 11-09-2018 10:09-0400 BP Diastolic 92 mm[Hg] [facility] 11-09-2018 10:09-0400 BP Systolic 155 mm[Hg] [facility] 11-09-2018 10:09-0400 Pulse (Heart Rate) 70 /min [facility] 10-12-2018 10:14-0400 BMI (Body Mass Index) 34.28 kg/m2 [facility] 10-12-2018 10:14-0400 Body weight 99.29 kg [facility] 10-12-2018 10:14-0400 BP Diastolic 92 mm[Hg] [facility] 10-12-2018 10:14-0400 BP Systolic 153 mm[Hg] [facility] 10-12-2018 10:14-0400 Pulse (Heart Rate) 70 /min [facility] 10-12-2018 10:14-0400 Pulse Oximetry 93 % [facility] 10-12-2018 10:14-0400 Respiratory Rate 16 /min [facility] 09-25-2018 09:23-0400 Body height 163.83 cm Zack Olmos MD Work Phone: [facility] [employer] [facility].; [facility], [facility]. 09-25-2018 09:23-0400 Body mass index (BMI) [Ratio] 36.84 kg/m2 Zack Olmos MD Work Phone: [employer] 09-25-2018 09:23-0400 Body surface area Derived from formula 2.04 m2 Zack Olmos MD Work Phone: [employer] 09-25-2018 09:23-0400 Body weight 98.88 kg Zack Olmos MD Work Phone: [employer] 09-25-2018 09:23-0400 Diastolic blood pressure 80 mm[Hg] Zack Olmos MD Work Phone: [employer] 09-25-2018 09:23-0400 Heart rate 76 /min Zack Olmos MD Work Phone: [employer] 09-25-2018 09:23-0400 Systolic blood pressure 132 mm[Hg] Zack Olmos MD Work Phone: [employer] 09-21-2018 11:05-0400 BMI (Body Mass Index) 34.13 kg/m2 [facility] 09-21-2018 11:05-0400 Body weight 98.84 kg [facility] 09-21-2018 11:05-0400 BP Diastolic 77 mm[Hg] [facility] 09-21-2018 11:05-0400 BP Systolic 146 mm[Hg] [facility] 09-21-2018 11:05-0400 Pulse (Heart Rate) 66 /min [facility] 09-21-2018 11:05-0400 Pulse Oximetry 95 % [facility] 09-21-2018 11:05-0400 Respiratory Rate 16 /min [facility] 09-05-2018 11:20-0400 BP Diastolic 72 mm[Hg] [place] [facility] 09-05-2018 11:20-0400 BP Systolic 142 mm[Hg] [place] [facility] 09-05-2018 11:20-0400 Pulse (Heart Rate) 54 /min [place] [facility] 09-05-2018 10:55-0400 BMI (Body Mass Index) 33.39 kg/m2 [place] [facility] 09-05-2018 10:55-0400 Body weight 96.71 kg [place] [facility] 09-05-2018 10:55-0400 Height 170.2 cm [facility] 09-05-2018 10:55-0400 Pulse Oximetry 96 % [place] [facility] 08-31-2018 11:05-0400 BMI (Body Mass Index) 33.17 kg/m2 [facility] 08-31-2018 11:05-0400 BP Diastolic 88 mm[Hg] [facility] 08-31-2018 11:05-0400 BP Systolic 155 mm[Hg] [facility] 08-31-2018 11:05-0400 Pulse (Heart Rate) 50 /min [facility] 08-31-2018 11:05-0400 Pulse Oximetry 95 % [facility] 08-31-2018 11:05-0400 Respiratory Rate 16 /min [facility] 08-31-2018 11:05-0400 Weight 96.07 kg [facility] 08-10-2018 11:19-0400 BMI (Body Mass Index) 34 kg/m2 [facility] 08-10-2018 11:19-0400 BP Diastolic 78 mm[Hg] [facility] 08-10-2018 11:19-0400 BP Systolic 148 mm[Hg] [facility] 08-10-2018 11:19-0400 Pulse (Heart Rate) 72 /min [facility] 08-10-2018 11:19-0400 Pulse Oximetry 95 % [facility] 08-10-2018 11:19-0400 Respiratory Rate 16 /min [facility] 08-10-2018 11:19-0400 Weight 98.48 kg [facility] 08-03-2018 12:17-0400 BMI (Body Mass Index) 34.08 kg/m2 [facility] 08-03-2018 12:17-0400 BP Diastolic 84 mm[Hg] [facility] 08-03-2018 12:17-0400 BP Systolic 141 mm[Hg] [facility] 08-03-2018 12:17-0400 Pulse (Heart Rate) 66 /min [facility] 08-03-2018 12:17-0400 Pulse Oximetry 96 % [facility] 08-03-2018 12:17-0400 Respiratory Rate 16 /min [facility] 08-03-2018 12:17-0400 Weight 98.7 kg [facility] 07-26-2018 08:40-0400 BP Diastolic 72 mm[Hg] [place] [facility] 07-26-2018 08:40-0400 BP Systolic 163 mm[Hg] [place] [facility] 07-26-2018 08:40-0400 Pulse (Heart Rate) 76 /min [place] [facility] 07-26-2018 08:03-0400 BMI (Body Mass Index) 34.57 kg/m2 [facility] 07-26-2018 08:03-0400 Height 170.2 cm [place] [facility] 07-26-2018 08:03-0400 Pulse Oximetry 94 % [facility] 07-26-2018 08:03-0400 Weight 100.11 kg [place] [facility] 07-20-2018 09:41-0400 BP Diastolic 84 mm[Hg] Lenin Ramirez [facility] 07-20-2018 09:41-0400 BP Systolic 144 mm[Hg] Lenin Ramirez [facility] 07-20-2018 09:41-0400 Pulse (Heart Rate) 92 /min Lenin Ramirez [facility] 05-30-2018 10:01-0400 Body height 163.83 cm Muna Townsend DRY HOUSE ATTENDANT [facility] 05-30-2018 10:01-0400 Body mass index (BMI) [Ratio] 37.35 kg/m2 Muna Townsend DRY HOUSE ATTENDANT [facility] [employer]ines [facility] 05-30-2018 10:01-0400 Body surface area Derived from formula 2.05 m2 Muna Townsend LPN [employer] [facility].; [employer]. 05-30-2018 10:01-0400 Body weight 100.25 kg Muna Townsend DRY HOUSE ATTENDANT [employer] [facility].; [employer], [employer]. 05-30-2018 10:01-0400 Diastolic blood pressure 65 mm[Hg] Muna Townsend DRY HOUSE ATTENDANT [employer] [facility].; [employer]. 05-30-2018 10:01-0400 Heart rate 38 /min Muna Townsend DRY HOUSE ATTENDANT [employer] [facility].; [employer]. 05-30-2018 10:01-0400 Inhaled oxygen concentration 20 % Muna Townsend [facility] [employer] [facility].; [employer], [employer]. 05-30-2018 10:01-0400 SaO2% (BldA) [Mass fraction] 97 % Muna Townsend [facility].; [employer], [employer]. 05-30-2018 10:01-0400 Systolic blood pressure 132 mm[Hg] Muna Townsend [facility].; [employer], [employer]. 05-17-2018 12:01-0500 BMI (Body Mass Index) 34.63 kg/m2 Lenin Ramirez [facility] 05-17-2018 12:01-0500 BP Diastolic 59 mm[Hg] Lenin Fraserleatha [facility] 05-17-2018 12:01-0500 BP Systolic 122 mm[Hg] Lenin Evelioleatha [facility] 05-17-2018 12:01-0500 Height 170.2 cm Lenin Davleatha [facility] 05-17-2018 12:01-0500 Pulse (Heart Rate) 39 /min Lenin Evelioleatha [facility] 05-17-2018 12:01-0500 Pulse Oximetry 92 % Lenin Davleatha [facility] 05-17-2018 12:01-0500 Weight 100.29 kg Lenin Davleatha [facility] 05-03-2018 12:15-0500 BMI (Body Mass Index) 36.77 kg/m2 Lenin Fraserleatha [facility] 05-03-2018 12:15-0500 BP Diastolic 85 mm[Hg] Lenin Ramirez [facility] 05-03-2018 12:15-0500 BP Systolic 147 mm[Hg] Lenin Ramirez [facility] 05-03-2018 12:15-0500 Height 170.2 cm Lenin Ramirez [facility] 05-03-2018 12:15-0500 Pulse (Heart Rate) 80 /min Lenin Ramirez [facility] 05-03-2018 12:15-0500 Pulse Oximetry 91 % Lenin Ramirez [facility] 05-03-2018 12:15-0500 Weight 106.5 kg Lenin Ramirez [facility] 04-18-2018 09:15-0500 Body height 163.83 cm Rachel Guera Goodwin LPN [facility], [facility].; [employer], [employer]. 04-18-2018 09:15-0500 Body mass index (BMI) [Ratio] 39.88 kg/m2 Rachel Guera Goodwin DRY HOUSE ATTENDANT [employer] [facility].; [employer], [facility]. 04-18-2018 09:15-0500 Body surface area Derived from formula 2.11 m2 Rachel Guera Goodwin DRY HOUSE ATTENDANT [employer] [facility], [facility].; [employer], [employer]. 04-18-2018 09:15-0500 Body weight 107.05 kg Rachel Guera Goodwin [facility] [employer] [facility], [facility].; [employer], [employer]. 04-18-2018 09:15-0500 Diastolic blood pressure 73 mm[Hg] Rachel Goodwin DRY HOUSE ATTENDANT [employer] [facility].; [employer] [facility], [facility]. 04-18-2018 09:15-0500 Heart rate 70 /min Rachel Guera Goodwin LPN [employer] [facility], [facility].; [employer], [employer]. 04-18-2018 09:15-0500 Inhaled oxygen concentration 20 % Rachel Guera Osmanbarichard [facility] [employer] [facility].; [employer], [employer]. 04-18-2018 09:15-0500 SaO2% (BldA) [Mass fraction] 93 % Rachel Guera Samersjosephine DRY HOUSE ATTENDANT [employer] [facility].; [employer]. 04-18-2018 09:15-0500 Systolic blood pressure 150 mm[Hg] Rachel Goodwin LPN [employer].; [employer]. 03-16-2018 10:31-0500 Body height 163.83 cm Umu Nye RN [employer].; [employer]. 03-16-2018 10:31-0500 Body mass index (BMI) [Ratio] 39.21 kg/m2 Umu Nye RN [employer].; [employer]. 03-16-2018 10:31-0500 Body surface area Derived from formula 2.1 m2 Umu Nye RN [employer].; [employer]. 03-16-2018 10:31-0500 Body temperature 98.6 [degF] Umu Nye RN [employer].; [employer]. 03-16-2018 10:31-0500 Body weight 105.24 kg Umu Nye RN [employer].; [employer]. 03-16-2018 10:31-0500 Diastolic blood pressure 71 mm[Hg] Umu Nye RN [employer].; [employer]. 03-16-2018 10:31-0500 Heart rate 76 /min Umu Nye RN [employer]. 03-16-2018 10:31-0500 Inhaled oxygen concentration 20 % Umu Nye RN [employer]. 03-16-2018 10:31-0500 SaO2% (BldA) [Mass fraction] 94 % Umu Nye RN [employer].; [employer]. 03-16-2018 10:31-0500 Systolic blood pressure 126 mm[Hg] Umu Nye RN [employer].; [employer]. 02-21-2018 08:02-0500 Body height 163.83 cm Sandra Kign LPN [employer].; [employer]. 02-21-2018 08:02-0500 Body mass index (BMI) [Ratio] 39.04 kg/m2 Sandra Wealonso STER[employer]ING [employer]. 02-21-2018 08:02-0500 Body surface area Derived from formula 2.09 m2 Sandra Avialonso STER[place] [employer]. 02-21-2018 08:02-0500 Body temperature 97.9 [degF] Sandra Fernando DRY HOUSE ATTENDANT [employer] [facility].; [employer]. 02-21-2018 08:02-0500 Body weight 104.78 kg Sandra Wealonso DRY HOUSE ATTENDANT [employer], [employer].; [employer]. 02-21-2018 08:02-0500 Diastolic blood pressure 81 mm[Hg] Sandra King [facility] [employer]. 02-21-2018 08:02-0500 Heart rate 71 /min Sandra Avialonso DRY HOUSE ATTENDANT [employer]. 02-21-2018 08:02-0500 Inhaled oxygen concentration 20 % Sandra Avialonso [facility] [employer], [employer]. 02-21-2018 08:02-0500 SaO2% (BldA) [Mass fraction] 98 % Sandra Avialonso DRY HOUSE ATTENDANT [employer]. 02-21-2018 08:02-0500 Systolic blood pressure 160 mm[Hg] Sandra King LPN [employer]. 02-06-2018 08:00-0500 Body height 163.83 cm Rachel Goodwin DRY HOUSE ATTENDANT [employer]. 02-06-2018 08:00-0500 Body mass index (BMI) [Ratio] 38.19 kg/m2 Rachel Goodwin DRY HOUSE ATTENDANT [employer]. 02-06-2018 08:00-0500 Body surface area Derived from formula 2.07 m2 Rachel Goodwin [facility], [facility].; [employer], [facility]. 02-06-2018 08:00-0500 Body temperature 99.5 [degF] Rachel Goodwin [facility] [employer], [employer]. 02-06-2018 08:00-0500 Body weight 102.51 kg Rachel Goodwin [facility] [employer] [facility], [facility].; [employer], [facility]. 02-06-2018 08:00-0500 Diastolic blood pressure 82 mm[Hg] Rachel Goodwin [facility] [employer] [facility].; [employer], [employer]. 02-06-2018 08:00-0500 Heart rate 85 /min Rachel Goodwin [facility] [employer] [facility] [employer], [employer]. 02-06-2018 08:00-0500 Inhaled oxygen concentration 20 % Rachelanahy Goodwin [facility] [employer] [facility], [facility].; [employer], [employer]. 02-06-2018 08:00-0500 SaO2% (BldA) [Mass fraction] 95 % Rachelanahy Goodwin [facility] [employer] [facility], [facility].; [employer], [employer]. 02-06-2018 08:00-0500 Systolic blood pressure 146 mm[Hg] Rachel Goodwin [facility] [employer] [facility].; [employer], [employer]. 12-26-2017 08:42-0400 Body height 163.83 cm Muna Townsend [facility] [employer] [facility], [facility].; [employer], [employer]. 12-26-2017 08:42-0400 Body mass index (BMI) [Ratio] 39.38 kg/m2 Muna Townsend [facility] [employer] [facility], [employer].; [employer], [employer]. 12-26-2017 08:42-0400 Body surface area Derived from formula 2.1 m2 Muna Townsend [facility] [employer] [facility], [facility].; [email or web address]. 12-26-2017 08:42-0400 Body temperature 97.5 [degF] Muna Townsend DRY HOUSE ATTENDANT [facility].; [employer] [facility] 12-26-2017 08:42-0400 Body weight 105.69 kg Muna Townsend [facility]SH[facility], [facility].; [employer] [facility] 12-26-2017 08:42-0400 Diastolic blood pressure 80 mm[Hg] Muna Townsend ASHER [facility], [facility].; [employer], [employer] 12-26-2017 08:42-0400 Heart rate 83 /min AdelineMaren Townsend ASHER [facility].; [employer], [employer] 12-26-2017 08:42-0400 Inhaled oxygen concentration 20 % AdelineMaren Townsend ASHER [facility].; [employer] [facility]. 12-26-2017 08:42-0400 SaO2% (BldA) [Mass fraction] 96 % AdeilneMaren Townsend A[facility]ER [facility].; [employer], [employer] 12-26-2017 08:42-0400 Systolic blood pressure 145 mm[Hg] Muna Townsend ASHER [facility] [employer], [employer] 11-07-2017 09:17-0400 Body height 163.83 cm Muna Townsend A[facility].; [employer], [employer] 11-07-2017 09:17-0400 Body mass index (BMI) [Ratio] 38.7 kg/m2 Adeline Cary [facility].; [employer], [employer] 11-07-2017 09:17-0400 Body surface area Derived from formula 2.08 m2 Adeline Garey ASHER [employer] [facility].; [employer], [employer]. 11-07-2017 09:17-0400 Body weight 103.87 kg Adeline Cary A[facility].; [employer], [employer] 11-07-2017 09:17-0400 Diastolic blood pressure 73 mm[Hg] AdelineMaren Barrettey ASHER [employer] [facility].; [employer], [employer] 11-07-2017 09:17-0400 Heart rate 82 /min Muna Townsend ASHER [employer], [employer].; [employer] 11-07-2017 09:17-0400 Systolic blood pressure 144 mm[Hg] Muna Townsend DRY HOUSE ATTENDANT [employer], [employer].; [employer], [employer] 10-09-2017 08:22-0400 Body height 163.83 cm Johnny Corcoran [facility] [employer], [employer].; [employer] 10-09-2017 08:22-0400 Body mass index (BMI) [Ratio] 39.21 kg/m2 Johnny Corcoran [facility] [employer], [employer].; [employer] 10-09-2017 08:22-0400 Body surface area Derived from formula 2.1 m2 Johnny Corcoran [facility] [employer], [employer].; [employer] 10-09-2017 08:22-0400 Body weight 105.24 kg Johnny Corcoran [facility] [employer], [employer].; [employer] 10-09-2017 08:22-0400 Diastolic blood pressure 91 mm[Hg] Johnny Corcoran [employer]Y HOUSE ATTENDANT [employer], [employer].; [employer] 10-09-2017 08:22-0400 Heart rate 70 /min Johnny Corcoran [facility] [employer], [employer] [employer] 10-09-2017 08:22-0400 Systolic blood pressure 151 mm[Hg] Johnny Corcoran LPN [employer], [employer] 09-18-2017 09:50-0400 Body height 163.83 cm Zack Olmos MD Work Phone: [employer] 09-18-2017 09:50-0400 Body mass index (BMI) [Ratio] 38.7 kg/m2 Zack Olmos MD Work Phone: [employer], [employer] 09-18-2017 09:50-0400 Body surface area Derived from formula 2.08 m2 Zack Olmos MD Work Phone: [employer] 09-18-2017 09:50-0400 Body weight 103.87 kg Zack Olmos MD Work Phone: [employer] 09-18-2017 09:50-0400 Diastolic blood pressure 70 mm[Hg] Zack Olmos MD Work Phone: [employer] 09-18-2017 09:50-0400 Heart rate 67 /min Zack Olmos MD Work Phone: [employer] 09-18-2017 09:50-0400 Systolic blood pressure 126 mm[Hg] Zcak Olmos MD Work Phone: [employer] 07-11-2017 09:27-0400 Body height 163.83 cm Laura Boswell LPN [employer], [employer] 07-11-2017 09:27-0400 Body mass index (BMI) [Ratio] 39.04 kg/m2 Laura Boswell LPN [employer] 07-11-2017 09:27-0400 Body surface area Derived from formula 2.09 m2 Laura Boswell LPN [employer], [employer].; [employer] 07-11-2017 09:27-0400 Body temperature 97.9 [degF] Laura Boswell LPN [employer] 07-11-2017 09:27-0400 Body weight 104.78 kg Laura Boswell LPN [employer] 07-11-2017 09:27-0400 Diastolic blood pressure 72 mm[Hg] Laura Boswell LPN [employer], [employer] 07-11-2017 09:27-0400 Heart rate 74 /min Laura Boswell LPN [employer], [employer].; [employer] 07-11-2017 09:27-0400 Systolic blood pressure 154 mm[Hg] Laura Boswell LPN [employer] 06-16-2017 10:15-0400 Body temperature 97.9 [degF] Laura Ilda Boswell [employer]Y HOUSE ATTENDANT [employer] 06-16-2017 10:15-0400 Body weight 106.4 kg Laura Ilda Boswell LPN [employer] 06-16-2017 10:15-0400 Diastolic blood pressure 70 mm[Hg] [facility] [employer] 06-16-2017 10:15-0400 Heart rate 91 /min Laura Ilda Boswell [facility] [employer] 06-16-2017 10:15-0400 Systolic blood pressure 143 mm[Hg] [facility]well [facility] [employer] 05-04-2017 15:40-0500 BMI (Body Mass Index) 38.22 kg/m2 Lenin Ramirez [facility] 05-04-2017 15:40-0500 BP Diastolic 80 mm[Hg] Lenin Ramirez [facility] 05-04-2017 15:40-0500 BP Systolic 127 mm[Hg] Lenin Ramirez [facility] 05-04-2017 15:40-0500 Height 170.2 cm Lenin Ramirez [facility] 05-04-2017 15:40-0500 Pulse (Heart Rate) 80 /min Lenin Ramirez [facility] 05-04-2017 15:40-0500 Weight 110.68 kg Lenin Ramirez [facility] 03-21-2017 10:25-0500 Body height 163.83 cm Zack Olmos MD Work Phone: [employer] 03-21-2017 10:25-0500 Body mass index (BMI) [Ratio] 39.88 kg/m2 Zack Olmos MD Work Phone: [employer] 03-21-2017 10:25-0500 Body surface area Derived from formula 2.11 m2 Zack Olmos MD Work Phone: [employer] 03-21-2017 10:25-0500 Body weight 107.05 kg Zack Olmos MD Work Phone: [employer].; [employer] 03-21-2017 10:25-0500 Diastolic blood pressure 70 mm[Hg] Zack Olmos MD Work Phone: [employer] 03-21-2017 10:25-0500 Heart rate 91 /min Zack Olmos MD Work Phone: [employer] 03-21-2017 10:25-0500 Systolic blood pressure 132 mm[Hg] Zack Olmos MD Work Phone: [employer] 10-05-2016 09:46-0400 Body height 163.83 cm Zack Olmos MD Work Phone: [employer] 10-05-2016 09:46-0400 Body mass index (BMI) [Ratio] 39.88 kg/m2 Zack Olmos MD Work Phone: [employer] 10-05-2016 09:46-0400 Body surface area Derived from formula 2.11 m2 Zack Olmos MD Work Phone: [employer] 10-05-2016 09:46-0400 Body weight 107.05 kg Zack Olmos MD Work Phone: [employer] 10-05-2016 09:46-0400 Diastolic blood pressure 82 mm[Hg] Zack Olmos MD Work Phone: [employer] 10-05-2016 09:46-0400 Heart rate 68 /min Zack Olmos MD Work Phone: [employer] 10-05-2016 09:46-0400 Systolic blood pressure 138 mm[Hg] Zack Olmos MD Work Phone: [employer] 09-16-2016 11:33-0400 Body height 163.83 cm Rosy [facility], Inc.; [employer] 09-16-2016 11:33-0400 Body mass index (BMI) [Ratio] 40.39 kg/m2 Rosy Allison [facility] Inc.; [employer] 09-16-2016 11:33-0400 Body surface area Derived from formula 2.12 m2 Rosy Allison Corby LPN [employer] 09-16-2016 11:33-0400 Body weight 108.41 kg Rosy Allison Corby LPN [employer] 09-16-2016 11:33-0400 Diastolic blood pressure 84 mm[Hg] Rosy Tavarez [facility] [employer] 09-16-2016 11:33-0400 Heart rate 73 /min Rosy Allison Corby [facility] [employer] 09-16-2016 11:33-0400 Systolic blood pressure 145 mm[Hg] Rosy Tavarez [facility] [employer] 04-06-2016 10:03-0500 Body height 163.83 cm Zack Olmos MD Work Phone: [employer] 04-06-2016 10:03-0500 Body mass index (BMI) [Ratio] 41.4 kg/m2 Zack Olmos MD Work Phone: [employer] 04-06-2016 10:03-0500 Body surface area Derived from formula 2.14 m2 Zack Olmos MD Work Phone: [employer] 04-06-2016 10:03-0500 Body weight 111.13 kg Zack Olmos MD Work Phone: [employer] 04-06-2016 10:03-0500 Diastolic blood pressure 72 mm[Hg] Zack Olmos MD Work Phone: [employer].; [employer] 04-06-2016 10:03-0500 Heart rate 91 /min Zack Olmos MD Work Phone: [employer] 04-06-2016 10:03-0500 Systolic blood pressure 140 mm[Hg] Zack Olmos MD Work Phone: [employer] 12-21-2015 09:23-0400 Body weight 115.21 kg Zack Olmos MD Work Phone: [employer] 12-21-2015 09:23-0400 Diastolic blood pressure 80 mm[Hg] Zack Olmos MD Work Phone: [employer] 12-21-2015 09:23-0400 Heart rate 76 /min Zack Olmos MD Work Phone: [employer] 12-21-2015 09:23-0400 Systolic blood pressure 142 mm[Hg] Zack Olmos MD Work Phone: [employer].; [employer] 10-14-2015 10:57-0400 Body height 163.83 cm Rosy Tavarez [facility] [employer] 10-14-2015 10:57-0400 Body mass index (BMI) [Ratio] 41.91 kg/m2 Rosy Tavarez LPN [employer] 10-14-2015 10:57-0400 Body surface area Derived from formula 2.16 m2 Rosy Tavarez LPN [employer] 10-14-2015 10:57-0400 Body weight 112.49 kg Rosy Allison Corby [employer] [facility].; [employer] 10-14-2015 10:57-0400 Diastolic blood pressure 74 mm[Hg] Rosy Balldory [employer] [facility].; [employer] 10-14-2015 10:57-0400 Heart rate 75 /min Rosy Allison Corby [employer]Y HOUSE ATTENDANT [employer] [facility], [facility].; [employer] 10-14-2015 10:57-0400 Systolic blood pressure 131 mm[Hg] Rosy Allison Corby LPN [employer].; [employer] 10-06-2015 10:11-0400 Body height 163.83 cm Muna Engel Cary [employer] [facility], [facility].; [employer] 10-06-2015 10:11-0400 Body mass index (BMI) [Ratio] 41.57 kg/m2 Muna Engel Garey ASHER [employer] [facility], [facility].; [employer] 10-06-2015 10:11-0400 Body surface area Derived from formula 2.15 m2 Muna Engel Cary [employer] [facility], [facility].; [employer] 10-06-2015 10:11-0400 Body weight 111.59 kg Muna Townsend ASHER [employer] [facility], [facility].; [employer] 10-06-2015 10:11-0400 Diastolic blood pressure 75 mm[Hg] Muna Engel Garey ASHER [employer] [facility].; [employer] 10-06-2015 10:11-0400 Heart rate 71 /min Muna Engel Cary ASHER [employer], [employer].; [employer] 10-06-2015 10:11-0400 Systolic blood pressure 141 mm[Hg] Muna Engle Cary ASHER [employer].; [employer] 04-07-2015 10:00-0500 Body height 163.83 cm Adeline Cary [employer], [employer].; [employer] 04-07-2015 10:00-0500 Body mass index (BMI) [Ratio] 41.24 kg/m2 Adeline Cary [facility] [employer] 04-07-2015 10:00-0500 Body surface area Derived from formula 2.14 m2 [facility] [employer] [employer] 04-07-2015 10:00-0500 Body weight 110.68 kg Muna Townsend [facility] [employer] 04-07-2015 10:00-0500 Diastolic blood pressure 77 mm[Hg] [facility].; [employer] 04-07-2015 10:00-0500 Heart rate 85 /min [facility] Inc.; [employer] 04-07-2015 10:00-0500 Systolic blood pressure 138 mm[Hg] Muna Townsend [facility] [employer] 01-06-2015 09:37-0400 Body height 163.83 cm Zack Olmos MD Work Phone: [employer].; [employer] 01-06-2015 09:37-0400 Body mass index (BMI) [Ratio] 40.9 kg/m2 Zack Olmos MD Work Phone: [employer].; [employer] 01-06-2015 09:37-0400 Body surface area Derived from formula 2.13 m2 Zack Olmos MD Work Phone: [employer] 01-06-2015 09:37-0400 Body temperature 97.7 [degF] Zack Olmos MD Work Phone: [employer] 01-06-2015 09:37-0400 Body weight 109.77 kg Zack Olmos MD Work Phone: [employer].; [employer] 01-06-2015 09:37-0400 Diastolic blood pressure 70 mm[Hg] Zack Olmos MD Work Phone: [employer].; [employer] 01-06-2015 09:37-0400 Heart rate 69 /min Zack Olmos MD Work Phone: [employer].; [employer] 01-06-2015 09:37-0400 Inhaled oxygen concentration 20 % Zack Olmos MD Work Phone: [employer].; [employer] 01-06-2015 09:37-0400 SaO2% (BldA) [Mass fraction] 97 % Zack Olmos MD Work Phone: [employer].; [employer] 01-06-2015 09:37-0400 Systolic blood pressure 132 mm[Hg] Zack Olmos MD Work Phone: [employer].; [employer] 12-23-2014 08:19-0400 Body temperature 101.6 [degF] Umu Nye RN [employer].; [employer] 12-23-2014 08:19-0400 Body weight 115.67 kg Umu Nye RN [employer].; [employer] 12-23-2014 08:19-0400 Diastolic blood pressure 86 mm[Hg] Umu Nye RN [employer].; [employer] 12-23-2014 08:19-0400 Heart rate 115 /min Umu Nye RN [employer].; [employer] 12-23-2014 08:19-0400 Inhaled oxygen concentration 20 % Umu Nye RN [employer].; [employer] 12-23-2014 08:19-0400 SaO2% (BldA) [Mass fraction] 89 % Umu Nye RN [employer].; [employer] [facility] 12-23-2014 08:19-0400 Systolic blood pressure 184 mm[Hg] Umu Nye RN [facility].; [employer] 09-26-2014 [id number]:[id number] Body height 163.83 cm AdelineMaren Townsend [facility].; [employer] 09-26-2014 10:28-0400 Body mass index (BMI) [Ratio] 41.91 kg/m2 [facility] Garey [facility].; [employer] 09-26-2014 10:28-0400 Body surface area Derived from formula 2.16 m2 [facility] Garey [facility] [employer] [facility].; [employer] 09-26-2014 10:280400 Body weight 112.49 kg [facility] Garey [employer]Y HOUSE [employer]ENDANT [employer] [facility].; [employer] 09-26-2014 10:28-0400 Diastolic blood pressure 79 mm[Hg] AdelineMaren Townsend DRY HOUSE ATTENDANT Martinse [employer] [facility].; [employer] 09-26-2014 10:28-0400 Heart rate 65 /min [facility] Cary [facility] [employer] [facility].; [employer] 09-26-2014 10:28-0400 Systolic blood pressure 141 mm[Hg] Adeline Cary DRY HOUSE ATTENDANT [employer] [facility].; [employer] 08-01-2014 09:020400 Body height 163.83 cm [facility] Cary DRY HOUSE ATTENDANT [employer] [facility] Inc.; [employer] 08-01-2014 09:020400 Body mass index (BMI) [Ratio] 41.07 kg/m2 [facility] Cary [facility].; [employer] 08-01-2014 09:02-0400 Body surface area Derived from formula 2.14 m2 [facility] Garey DRY HOUSE ATTENDANT [employer] [facility].; [employer] 08-01-2014 09:020400 Body weight 110.22 kg Muna Townsend ASHER [employer] [facility].; [employer] 08-01-2014 09:02-0400 Diastolic blood pressure 78 mm[Hg] Muna Townsend [facility].; [employer] 08-01-2014 09:02-0400 Heart rate 78 /min Muna Townsend [facility] [employer] 08-01-2014 09:02-0400 Systolic blood pressure 135 mm[Hg] Muna Townsend DRY HOUSE ATTENDANTUnm Psychiatric CenterZenHub [facility], [facility].; [employer] 06-20-2014 09:50-0400 Body height 163.83 cm Marisela Chavis LPN [employer] [facility].; [employer] 06-20-2014 09:50-0400 Body mass index (BMI) [Ratio] 41.24 kg/m2 Marisela Chavis LPN [employer] [facility].; [employer] 06-20-2014 09:50-0400 Body surface area Derived from formula 2.14 m2 Marisela Chavis LPN [employer] 06-20-2014 09:50-0400 Body temperature 97.9 [degF] Marisela Chavis LPN [employer] 06-20-2014 09:50-0400 Body weight 110.68 kg Marisela Chavis LPN [employer] 06-20-2014 09:50-0400 Diastolic blood pressure 76 mm[Hg] Marisela Chavis LPN [employer] 06-20-2014 09:50-0400 Heart rate 73 /min Marisela Chavis LPN [employer] 06-20-2014 09:50-0400 Systolic blood pressure 143 mm[Hg] Marisela Chavis LPN [employer] 03-24-2014 08:07-0500 Body height 163.83 cm Muna Townsend DRY HOUSE ATTENDANT [employer] [facility].; [employer] 03-24-2014 08:07-0500 Body mass index (BMI) [Ratio] 39.04 kg/m2 Muna Townsend [facility].; [employer] 03-24-2014 08:07-0500 Body surface area Derived from formula 2.09 m2 Muna Townsend [facility].; [employer] 03-24-2014 08:07-0500 Body weight 104.78 kg Muna Townsend [facility] [employer] 03-24-2014 08:07-0500 Diastolic blood pressure 78 mm[Hg] Muna Townsend [facility] [employer] 03-24-2014 08:07-0500 Heart rate 81 /min Adeline Cary [facility].; [employer] 03-24-2014 08:07-0500 Systolic blood pressure 147 mm[Hg] Muna Townsend [facility] [employer] 01-22-2014 11:07-0500 Body height 163.83 cm Muna Townsend [facility].; [employer] 01-22-2014 11:07-0500 Body mass index (BMI) [Ratio] 37.18 kg/m2 Muna Townsend [facility] [employer] 01-22-2014 11:07-0500 Body surface area Derived from formula 2.05 m2 Muna Townsend DRY HOUSE ATTENDANT [employer] 01-22-2014 11:07-0500 Body temperature 97.4 [degF] Muna Townsend [facility] [employer] 01-22-2014 11:07-0500 Body weight 99.79 kg Muna Townsend DRY HOUSE ATTENDANT [employer] 01-22-2014 11:07-0500 Diastolic blood pressure 69 mm[Hg] Muna Townsend [facility] [employer] [facility] [employer] 01-22-2014 11:07-0500 Heart rate 106 /min Muna Townsend [facility] [employer] [facility].; [employer] 01-22-2014 11:07-0500 Systolic blood pressure 112 mm[Hg] Muna Townsend [facility] [employer] 01-15-2014 07:57-0500 Body height 163.83 cm Muna Townsend [facility].; [employer] 01-15-2014 07:57-0500 Body mass index (BMI) [Ratio] 37.18 kg/m2 Muna Townsend [facility] [employer] [facility].; [employer] 01-15-2014 07:57-0500 Body surface area Derived from formula 2.05 m2 Adeline Cary [facility] [employer] [facility].; [employer] 01-15-2014 07:57-0500 Body temperature 99.3 [degF] Muna Townsend [facility] [employer] 01-15-2014 07:57-0500 Body weight 99.79 kg Muna Townsend [facility] [employer] 01-15-2014 07:57-0500 Diastolic blood pressure 69 mm[Hg] Muna Townsend [facility] [employer] [facility].; [employer] 01-15-2014 07:57-0500 Heart rate 106 /min AdelineMaren Townsend [facility] [employer] 01-15-2014 07:57-0500 Systolic blood pressure 132 mm[Hg] Muna Townsend [facility] [employer] 01-13-2014 11:25-0500 Body height 163.83 cm Pilar Garcia [facility] [employer] 01-13-2014 11:25-0500 Body mass index (BMI) [Ratio] 37.18 kg/m2 Pilar Garcia DRY HOUSE ATTENDANT [employer] [facility] [employer] 01-13-2014 11:25-0500 Body surface area Derived from formula 2.05 m2 Pilar Garcia DRY HOUSE ATTENDANT [employer] [facility].; [employer] 01-13-2014 11:25-0500 Body weight 99.79 kg Pilar Garcia [facility] [employer] 01-13-2014 11:25-0500 Diastolic blood pressure 79 mm[Hg] Pilarclemente Garcia [facility] [employer] 01-13-2014 11:25-0500 Heart rate 109 /min Totzclemente Garcia LPN [employer] 01-13-2014 11:25-0500 Systolic blood pressure 131 mm[Hg] Pilar Garcia LPN [employer] 07-30-2013 10:06-0400 Body height 163.83 cm Muna Townsend ASHER [employer] 07-30-2013 10:06-0400 Body mass index (BMI) [Ratio] 38.53 kg/m2 Muna Townsend ASHER [employer] [facility] [employer] 07-30-2013 10:06-0400 Body surface area Derived from formula 2.08 m2 Muna Townsend ASHER [employer] 07-30-2013 10:06-0400 Body weight 103.42 kg Muna Townsend LPN [employer] 07-30-2013 10:06-0400 Diastolic blood pressure 83 mm[Hg] Muna Townsend DRY HOUSE ATTENDANT [employer] 07-30-2013 10:06-0400 Heart rate 76 /min Muna Townsend DRY HOUSE ATTENDANT [employer] 07-30-2013 10:06-0400 Systolic blood pressure 132 mm[Hg] Muna Townsend ASHER [employer] [facility], Inc.; [employer] 06-21-2013 10:13-0400 Body height 163.83 cm Marisela Chavis DRY HOUSE ATTENDANT [facility], Inc.; [employer] 06-21-2013 10:13-0400 Body mass index (BMI) [Ratio] 37.69 kg/m2 Marisela Chavis DRY HOUSE ATTENDANT [employer] [facility], Inc.; [employer] 06-21-2013 10:13-0400 Body surface area Derived from formula 2.06 m2 Marisela Chavis DRY HOUSE ATTENDANT [employer] [facility], Inc.; [employer] 06-21-2013 10:130400 Body temperature 97.1 [degF] Marisela Chavis DRY HOUSE ATTENDANT [employer] [facility], Inc.; [employer] 06-21-2013 10:130400 Body weight 101.15 kg Marisela Chavis DRY HOUSE ATTENDANT [employer] [facility], Inc.; [employer] 06-21-2013 10:13-0400 Diastolic blood pressure 69 mm[Hg] Marisela Chavis [facility], Inc.; [employer] 06-21-2013 10:13-0400 Heart rate 67 /min Marisela Chavis DRY HOUSE ATTENDANT [employer] [facility], Inc.; [employer] 06-21-2013 10:13-0400 Systolic blood pressure 111 mm[Hg] Marisela Chavis DRY HOUSE ATTENDANT [employer] [facility], Inc.; [employer] 03-04-2013 14:05-0500 Body height 163.83 cm Sandra King [facility], Inc.; [employer] 03-04-2013 14:05-0500 Body mass index (BMI) [Ratio] 35.72 kg/m2 Sandra King LPN [employer] [facility], Inc.; [employer] 03-04-2013 14:05-0500 Body surface area Derived from formula 2.01 m2 Sandra King DRY HOUSE ATTENDANT [facility], Inc.; [employer], [employer]. 03-04-2013 14:05-0500 Body weight 95.88 kg Sandra Wealonso STERLING [employer] [facility], Inc.; [employer] 03-04-2013 14:05-0500 Diastolic blood pressure 76 mm[Hg] Sandra King LPN [employer] [facility], Inc.; [employer] 03-04-2013 14:05-0500 Heart rate 71 /min Sandra King LPN [employer] [facility], Inc.; [employer] 03-04-2013 14:05-0500 Systolic blood pressure 175 mm[Hg] Sandra King LPUn[facility] Psych[facility] CenterZen[facility], Inc.; [employer] 02-18-2013 11:32-0500 Body height 163.83 cm Sandra King LPN [employer] [facility], Inc.; [employer], [employer]. 02-18-2013 11:32-0500 Body mass index (BMI) [Ratio] 35.07 kg/m2 Sandra King LPN [employer] [facility], Inc.; [employer], [employer]. 02-18-2013 11:32-0500 Body surface area Derived from formula 2 m2 Sandra King LPN [employer] [facility], Inc.; [employer] 02-18-2013 11:32-0500 Body temperature 98 [degF] Sandra King LPN [employer] [facility], Inc.; [employer] 02-18-2013 11:32-0500 Body weight 94.12 kg Sandra King LPN [employer] [facility], [facility].; [employer], [employer]. 02-18-2013 11:32-0500 Diastolic blood pressure 82 mm[Hg] Sandra King LPN [employer] 02-18-2013 11:32-0500 Heart rate 82 /min Sandra King LPN [employer], [employer]. 02-18-2013 11:32-0500 Systolic blood pressure 135 mm[Hg] Sandra King LPN [employer]. 01-31-2013 08:07-0500 Body height 163.83 cm Zack Olmos MD Work Phone: [employer] 01-31-2013 08:07-0500 Body mass index (BMI) [Ratio] 35.83 kg/m2 Zack Olmos MD Work Phone: [employer] 01-31-2013 08:07-0500 Body surface area Derived from formula 2.02 m2 aZck Olmos MD Work Phone: [employer]. 01-31-2013 08:07-0500 Body temperature 101 [degF] Zack Olmos MD Work Phone: [employer]. 01-31-2013 08:07-0500 Body weight 96.16 kg Zack Olmos MD Work Phone: [employer]. 01-31-2013 08:07-0500 Diastolic blood pressure 72 mm[Hg] Zack Olmos MD Work Phone: [employer] 01-31-2013 08:07-0500 Heart rate 101 /min Zack Olmos MD Work Phone: [employer] 01-31-2013 08:07-0500 Systolic blood pressure 133 mm[Hg] Zack Olmos MD Work Phone: [employer]. 01-29-2013 09:57-0500 Body weight 96.62 kg Zack Olmos MD Work Phone: [employer] 01-29-2013 09:57-0500 Diastolic blood pressure 78 mm[Hg] Zack Olmos MD Work Phone: [employer]. 01-29-2013 09:57-0500 Heart rate 76 /min Zack Olmos MD Work Phone: [employer]. 01-29-2013 09:57-0500 Systolic blood pressure 128 mm[Hg] Zack Olmos MD Work Phone: [employer]. 07-24-2012 09:20-0400 Body height 163.83 cm Zack Olmos MD Work Phone: [employer]. 07-24-2012 09:20-0400 Body mass index (BMI) [Ratio] 36 kg/m2 Zack Olmos MD Work Phone: [employer] 07-24-2012 09:20-0400 Body surface area Derived from formula 2.02 m2 Zack Olmos MD Work Phone: [employer]. 07-24-2012 09:20-0400 Body weight 96.62 kg Zakc Olmos MD Work Phone: [employer]. 07-24-2012 09:20-0400 Diastolic blood pressure 72 mm[Hg] Zack Olmos MD Work Phone: [employer]. 07-24-2012 09:20-0400 Heart rate 68 /min Zack Olmos MD Work Phone: [employer]. 07-24-2012 09:20-0400 Systolic blood pressure 138 mm[Hg] Zack Olmos MD Work Phone: [employer]. 01-24-2012 09:38-0500 Body temperature 97.9 [degF] Zack Olmos MD Work Phone: [employer]. 01-24-2012 09:38-0500 Body weight 100.25 kg Zack Olmos MD Work Phone: [employer] [facility], [employer].; [employer] 01-24-2012 09:38-0500 Diastolic blood pressure 76 mm[Hg] Zack Olmos MD Work Phone: [employer] 01-24-2012 09:38-0500 Heart rate 72 /min Zack Olmos MD Work Phone: [employer] 01-24-2012 09:38-0500 Systolic blood pressure 136 mm[Hg] Zack Olmos MD Work Phone: [employer], [employer].; [employer] 10-18-2011 10:18-0400 Body height 163.83 cm [facility] [employer] [facility], Inc.; [employer] 10-18-2011 10:18-0400 Body mass index (BMI) [Ratio] 38.87 kg/m2 [facility], Inc.; [employer] 10-18-2011 10:18-0400 Body surface area Derived from formula 2.09 m2 [facility], Inc.; [employer] 10-18-2011 10:18-0400 Body weight 104.33 kg [facility], Inc.; [employer] 10-18-2011 10:18-0400 Diastolic blood pressure 89 mm[Hg] [facility] Garey [facility], Inc.; [employer] 10-18-2011 10:18-0400 Heart rate 72 /min [facility] Inc.; [employer] 10-18-2011 10:18-0400 Systolic blood pressure 153 mm[Hg] [facility] Cary [facility] [employer] 08-02-2011 08:30-0400 Body height 163.83 cm Zack Olmos MD Work Phone: [employer] 08-02-2011 08:30-0400 Body mass index (BMI) [Ratio] 41.07 kg/m2 Zack Olmos MD Work Phone: [employer]. 08-02-2011 08:30-0400 Body surface area Derived from formula 2.14 m2 Zack Olmos MD Work Phone: [employer]. 08-02-2011 08:30-0400 Body weight 110.22 kg Zack Olmos MD Work Phone: [employer]. 08-02-2011 08:30-0400 Diastolic blood pressure 78 mm[Hg] Zack Olmos MD Work Phone: [employer]. 08-02-2011 08:30-0400 Heart rate 58 /min Zack Olmos MD Work Phone: [employer]. 08-02-2011 08:30-0400 Systolic blood pressure 126 mm[Hg] Zack Olmos MD Work Phone: [employer]. 03-29-2011 10:18-0500 Body height 163.83 cm Lesley Arimn Abrams DRY HOUSE ATTENDANT [employer]. 03-29-2011 10:18-0500 Body mass index (BMI) [Ratio] 40.59 kg/m2 Lesley C Jose Alberto DRY HOUSE ATTENDANT [employer]. 03-29-2011 10:18-0500 Body surface area Derived from formula 2.13 m2 Lesley C Jose Alberto DRY HOUSE ATTENDANT [employer]. 03-29-2011 10:18-0500 Body weight 108.95 kg Lesley Armin Abrams DRY HOUSE ATTENDANT [employer].; [employer]. 03-29-2011 10:18-0500 Diastolic blood pressure 77 mm[Hg] Lesley Abrams LPN [employer].; [employer]. 03-29-2011 10:18-0500 Heart rate 93 /min Lesley Abrams LPN [employer] 03-29-2011 10:18-0500 Systolic blood pressure 136 mm[Hg] Lesley Abrasm LPN [employer]. 02-01-2011 10:29-0500 Body height 165.1 cm Zack Olmos MD Work Phone: [employer] 02-01-2011 10:29-0500 Body mass index (BMI) [Ratio] 42.6 kg/m2 Zack Olmos MD Work Phone: [employer]. 02-01-2011 10:29-0500 Body surface area Derived from formula 2.2 m2 Zack Olmos MD Work Phone: [employer]. 02-01-2011 10:29-0500 Body weight 116.12 kg Zack Olmos MD Work Phone: [employer]. 02-01-2011 10:29-0500 Diastolic blood pressure 77 mm[Hg] Zack Olmos MD Work Phone: [employer]. 02-01-2011 10:29-0500 Heart rate 65 /min Zack Olmos MD Work Phone: [employer]. 02-01-2011 10:29-0500 Systolic blood pressure 122 mm[Hg] Zack Olmos MD Work Phone: [employer]. 08-27-2010 08:32-0400 Body weight 114.31 kg Zack Olmos MD Work Phone: [employer]. 08-27-2010 08:32-0400 Diastolic blood pressure 71 mm[Hg] Zack Olmos MD Work Phone: [employer]. 08-27-2010 08:32-0400 Heart rate 61 /min Zack Olmos MD Work Phone: [employer]. 08-27-2010 08:32-0400 Systolic blood pressure 128 mm[Hg] aZck Olmos MD Work Phone: [employer]. 05-13-2010 17:01-0500 Body temperature 96.7 [degF] Zack Olmos MD Work Phone: [employer]. 05-13-2010 17:01-0500 Body weight 117.03 kg Zack Olmos MD Work Phone: [employer]. 05-13-2010 17:01-0500 Diastolic blood pressure 83 mm[Hg] Zack Olmos MD Work Phone: [employer]. 05-13-2010 17:01-0500 Heart rate 65 /min Zack Olmos MD Work Phone: [employer]. 05-13-2010 17:01-0500 Inhaled oxygen concentration 20 % Zack Olmos MD Work Phone: [employer]. 05-13-2010 17:01-0500 SaO2% (BldA) [Mass fraction] 96 % Zack Olmos MD Work Phone: [employer]. 05-13-2010 17:01-0500 Systolic blood pressure 183 mm[Hg] Zack Olmos MD Work Phone: [employer]. 02-26-2010 08:51-0500 Body weight 119.75 kg Zack Olmos MD Work Phone: [facility], [employer].; [employer] 02-26-2010 08:51-0500 Diastolic blood pressure 66 mm[Hg] Zack Olmos MD Work Phone: [facility], [employer].; [employer] 02-26-2010 08:51-0500 Heart rate 59 /min Zack Olmos MD Work Phone: [employer] [facility].; [employer], [employer] 02-26-2010 08:51-0500 Systolic blood pressure 130 mm[Hg] Zack Olmos MD Work Phone: [employer] [facility], [employer].; [employer] 01-06-2010 15:19-0400 Body height 165.1 cm [facility].; [employer], [employer]. 01-06-2010 15:19-0400 Body mass index (BMI) [Ratio] 43.43 kg/m2 [facility] Cary [facility], [facility].; [employer], [employer]. 01-06-2010 15:19-0400 Body surface area Derived from formula 2.22 m2 [facility], [facility].; [employer] 01-06-2010 15:19-0400 Body temperature 96.9 [degF] [facility], Inc.; [employer], [employer]. 01-06-2010 15:19-0400 Body weight 118.39 kg [facility].; [employer], [employer]. 01-06-2010 15:19-0400 Diastolic blood pressure 78 mm[Hg] [facility] Garey [facility], [employer].; [employer], [employer]. 01-06-2010 15:19-0400 Heart rate 72 /min [facility], [facility].; [employer], [employer]. 01-06-2010 15:19-0400 Inhaled oxygen concentration 20 % [facility] [employer]. 01-06-2010 15:19-0400 SaO2% (BldA) [Mass fraction] 96 % Muna Townsend [facility] Center[facility]als[facility].; [employer]. 01-06-2010 15:19-0400 Systolic blood pressure 160 mm[Hg] Muna Townsend [facility].; [employer]. Encounters Encounter Date Encounter Type Care Provider Facility Start: 03-30-2023 Orders Only Sherry George DO Work Phone: [facility] Start: 03-30-2023 End: 03-30-2023 Office outpatient visit 25 minutes Zack Olmos MD Work Phone: [employer] [facility] [employer] [facility] Start: 03-30-2023 Zack Olmos MD Work Phone: [employer] [facility] Start: 03-27-2023 End: 03-27-2023 Zack Olmos MD Work Phone: [employer] [facility] Start: 03-24-2023 ambulatory LENIN RAMIREZ [facility] Start: 03-21-2023 End: 03-22-2023 ambulatory SHERRY GEORGE [facility] Start: 01-23-2023 ambulatory LENIN RAMIREZ [facility] Start: 12-22-2022 End: 12-22-2022 Home visit Андрей Claros RN [facility] Procedures Date Procedure Procedure [...] End: 04-26-2022 AIRWAY ETT Froy Ochoa Mason MOTTLE LAY UP OPERATOR Work Phone: Start: 04-18-2022 End: 04-19-2022 [...] CABG (coronary artery bypass graft) [place] 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 Work Phone: History of coronary artery bypass [...] 03-20-2032 Screening for malignant neoplasm of colon [facility] Start: 12-07-2023 CLASS III : OFFICE VISIT CLASS III : OFFICE VISIT [facility] Start: 08-31-2023 CLASS III : OFFICE VISIT CLASS III : OFFICE VISIT [facility] Start: 06-08-2023 End: 06-08-2023 Patient encounter procedure 06/08/2023 9:30 AM EDT Office Visit [facility] [address] [place] [address] Lenin Ramirez MD [address] [facility] [address] [place] [address] [facility] Start: 06-01-2023 CLASS III : OFFICE VISIT CLASS III : OFFICE VISIT [facility] Start: 05-30-2023 Alanine aminotransferase measurement CLASS III : ALT [facility] Start: 05-30-2023 Thyroid stimulating hormone measurement Class III : TSH [facility] Start: 05-02-2023 End: 05-02-2023 Patient encounter procedure 05/02/2023 2:15 PM EST Office Visit [facility] [address] [facility], [address] [id number] Sherry George DO [address] [place] [address] [facility] Start: 04-25-2023 End: 04-25-2023 Patient encounter procedure 04/25/2023 1:00 PM EST Office Visit [facility] [address] [facility] [place] [address] [place] [address] Sherry George DO [address] [address] [facility] Start: 04-05-2023 CLASS III : OFFICE VISIT CLASS III : OFFICE VISIT [facility] Start: 03-08-2023 End: 12-06-2023 Carcinoembryonic antigen measurement CEA Lab Routine Elevated CEA Malignant neoplasm of ascending colon (HCC) Expected: 03/08/2023 (Approximate), Expires: 12/06/2023 [facility] Immunizations Immunization Date Immunization Notes Care Provider Jef rodarte 05-06-2020 Zack Olmos MD Work [facility]: [facility] [employer]. 04-08-2020 Zack Olmos MD Work Phone: [facility] 11-27-2019 influenza virus vacc ine, unspecified formulation Zack Olmos MD Work Phone: [facility] [employer]. 11-27-2019 influenza, injectabl e, quadrivalent, contains preservative Zack Olmos MD Work Phone: [facility] 03-23-2019 zoster vaccine recombinant Leonila Walls [facility] 09-25-2018 Shingrix (PF) Zack Olmos MD Work Phone: [facility].; [employer]. 01-30-2018 pneumococcal polysaccharide vaccine, 23 valent Zack Olmos MD Work Phone: [employer].; [employer]. 01-11-2017 influenza, injectabl e, quadrivalent, contains preservative Zack Olmos MD Work Phone: [facility].; [employer]. 01-12-2014 pneumococcal conjuga te vaccine, 13 valent Zack Olmos MD Work Phone: [employer].; [employer]. 12-11-2012 influenza, seasonal, injectable Zack Olmos MD Work Phone: [employer].; [employer]. 01-11-2011 influenza, seasonal, injectable Zack Olmos MD Work Phone: [employer].; [employer]. 01-11-2011 Zack Olmos MD Work Phone: [employer].; [employer]. 01-20-2010 influenza, seasonal, injectable Zack Olmos MD Work Phone: [facility].; [employer] [facility] 01-20-2010 Zack Olmos MD Work Phone: [facility].; [facility]. Payers Date Payer Category Payer Unknown [employer]MO [employer] [place] TRAD[place]AL xxxxxxxxxxxx 2019-Present [id number] 2019 Unknown [id number] .[id number] 2019 Unknown 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 1946 Unknown [id number] 2.16.840.1.105435.3.579.2.900 1946 Unknown [id number] 2.16.840.1.045512.3.579.2 1946 Unknown [id number] 2.16.840.1.098317.3.579.2. 1946 Unknown [id number] 2.16.840.1.745511.3.579.2 1946 Unknown [id number] 2.16.840.1.631619.3.579.2 1946 Unknown [id number] 2.16840.1.988451.3.579.2 1946 Unknown [id number] 2.16.840.1.280766.3.579.2 1946 Unknown [id number] 2.16.840.1.484421.3.579.2 1946 Unknown [id number] 2.16.840.1.237426.3.579.2 1946 Unknown [id number] 2.16.840.1.784667.3.579.2 1946 Unknown [id number] 2.16.840.1.968692.3.579.2 1946 Unknown [id number] 2.16.840.1.163334.3.579.2 1946 Unknown [id number] 2.16.840.1.432963.3.579.2 1946 Unknown [id number] 2.16.840.1.204546.3.579.2 1946 Unknown [id number] 2.16.840.1.877403.3.579.2. 1946 Unknown [id number] 2.16.840.1.683672.3.579.2. 1946 Unknown [id number] 2.16.840.1.195441.3.579.2. 1946 Unknown [id number] 2.16.840.1.591829.3.579.2. 1946 Unknown [id number] 2.16.840.1.411527.3.579.2. 1946 Unknown [id number] 2.16.840.1.075305.3.579.2. 1946 Unknown [id number] 2.16.840.1.346935.3.579.2. 1946 Unknown [id number] 2.16.840.1.657250.3.579.2. 1946 Unknown [id number] 2.16.840.1.095635.3.579.2.90 Unknown xxxxxx-[id number] 2.16.840.1.391372.3.249.13 Social History Date Type Detail Facility Start: 05-04-2017 End: 08-10-2021 Tobacco smoking status NMIS Former smoker [facility] End: 03-13-1989 History of tobacco use Current smoker [facility] Start: 1945 Sex Assigned At Not on file [facility] Start: 08-11-2014 Alcohol Comment occasionally [facility] Start: 11-09-2018 End: 04-06-2022 Alcohol intake Current drinker of alcohol (finding) [facility] Start: 07-12-2021 End: 05-31-2022 Exposure to SARS-CoV-2 (event) Not sure [facility] Start: 11-04-2019 End: 08-10-2021 Tobacco use and exposure Never used [facility] Exposure to SARS-CoV -2 (event) Unable to assess [facility] Start: 11-23-2020 End: 12-06-2022 Alcohol intake [facility] Start: 11-23-2020 History SDOH Alcohol Comment about q3mo [facility] End: 03-13-1989 History of tobacco use Cigarette Smoker [facility] Start: 04-27-2022 End: 12-06-2022 Alcohol intake Ex-drinker (finding) [facility] Start: 05-31-2022 End: 12-06-2022 Tobacco use panel [facility] Start: 07-20-2018 Gender identity Identifies as male gender (finding) [facility] Start: 07-20-2018 Sexual orientation Heterosexual (finding) [facility] Tobacco smoking status No Smokin g Status Entered [facility] Sex Assigned At Male [facility] Lack of Transportati on (Medical) No [facility] None. Mart[facility], [employer].; [employer] [facility] Former smoker. [facility] Functional Status Date Assessment Result Facility 11-27-2022 Functional Status Room check performed [facility] 11-27-2022 Functional Status [facility] 11-27-2022 Functional Status Breakfast Percent 25 [facility] 11-27-2022 Functional Status bilateral knee high applied/on [facility] 11-27-2022 Functional Status [facility] 11-27-2022 Functional Status [facility] 11-26-2022 Functional Status Nurse Pricilla you q2hrs Performed 7pm-11pm [facility] 11-26-2022 Functional Status [facility] 11-26-2022 Functional Status [facility] 11-26-2022 Functional Status [facility] 11-26-2022 Functional Status Assistive Isabel ce Walker [facility] 11-25-2022 Functional Status Independent [facility] 11-25-2022 [facility] System 11-25-2022 Functional Status Done [facility] 11-24-2022 Functional Status Pt's oldest da radha is a nurse and lives close. [facility] 11-24-2022 Functional Status Assistive Equi pment elevated on pillows [facility] 11-24-2022 Functional Status heel(s)s elevated [facility] 11-24-2022 Functional Status [facility] 11-24-2022 Functional Status [facility] 11-24-2022 Functional Status Sensory Deficits None [facility] NEGATED: Highlighted row Functional performance Functional status health issues are not documented [facility] Work Phone: Mental Status Date Assessment Result Facility 11-27-2022 Mental Status Orientation Orie nted x [address] [facility] 11-26-2022 Mental Status [facility] 11-26-2022 Mental Status [facility] 11-26-2022 Mental Status Orientation Assessment Oriented x 4 [facility] 11-25-2022 Mental Status [facility] 11-25-2022 Mental Status [facility] NEGATED: Highlighted row Cognitive function [Interpretation] Cognitive status health issues are not documented [facility] Work Phone: Clinical Notes 08-03-2020 to 12-21-2022 Actions Note Date & Type Note Facility documented in this encounter [id number] History of Present illness Narrative* Sherry George, [...] unintentional weight loss. He was admitted to [facility] with sepsis 11/23 - 11/27/22, suspected to be from right sided perineal cellulitis. He never underwent I&D or debridement, and no other source of infection was found. He is currently taking a 2nd week of cefdinir and flagyl. Patient Companion: Dr. Ramirez General Surgeon, [facility]: Dr. Pizano CANCER HISTORY 03/2022 -- Colonoscopy: [...] 03/2018 Coronary artery disease Dialysis patient ([facility]) M-W-F ED (erectile dysfunction) FSGS (focal segmental [...] BYPASS GRAFT; Surgeon: Mil Dee MD; [place] [facility] [place]; Service: Cardiothoracic CARDIAC CATHETERIZATION N/A 08/11/2014 Procedure: Left Heart Cath Possible PTCA/Stent; Surgeon: Lenin Ramirez MD; Location: [facility] HEMATOLOGIST ONCOLOGIST; Service: CARDIAC CATHETERIZATION Right 12/31/2014 Procedure: Left Heart Cath Possible PTCA/Stent; Surgeon: Ranulfo Cobb MD; Location: [facility] HEMATOLOGIST ONCOLOGIST; Service: CARDIAC CATHETERIZATION 08/11/2014 EF: 55% CARDIAC CATHETERIZATION 11/06/2006 EF: 45% CARDIAC CATHETERIZATION 08/09/2005 EF: 50% CARDIAC CATHETERIZATION 07/08/2005 EF: 45% CARDIAC CATHETERIZATION 12/31/2014 EF: 55% COLECTOMY RIGHT Right 04/26/2022 Procedure: RIGHT OPEN HEMICOLECTOMY; Surgeon: Sherry George DO; [place] [facility]; Service: General Surgery CORONARY ANGIOPLASTY WITH STENT PLACEMENT 08/09/2005 NORM- CX, RCA CORONARY ANGIOPLASTY WITH STENT PLACEMENT 07/08/2005 NORM- RCA CORONARY STENT PLACEMENT FOOT SURGERY Right hemodialysis fistula graft placement 12/14/2020 INSERTION PLEURAL CATHETER Right 01/18/2021 Procedure: RIGHT PLEUR X CATHETER PLACEMENT; Surgeon: Jalil Sparks MD; [place]: [facility] [place] [facility]; Service: Cardiothoracic INSERTION PLEURAL CATHETER Left 01/19/2021 Procedure: LEFT PLEUR X CATHETER PLACEMENT; Surgeon: Jalil Sparks MD; Location[place] [facility]; Service: Cardiothoracic INTERVENTIONAL RADIOLOGY PROCEDURE 08/27/2020 IR THORACENTESIS LT 08/27/2020 Jesus Choudhary MD [facility] INTERVENTION RAD INTERVENTIONAL RADIOLOGY PROCEDURE 08/27/2020 IR THORACENTESIS RT 08/27/2020 Jesus Choudhary MD [facility] INTERVENTION RAD INTERVENTIONAL RADIOLOGY PROCEDURE 10/27/2020 IR THORACENTESIS LT 10/27/2020 Varun Kathleen MD [facility] INTERVENTION RAD INTERVENTIONAL RADIOLOGY PROCEDURE 10/27/2020 IR THORACENTESIS RT 10/27/2020 Varun Kathleen MD [facility] INTERVENTION RAD JOINT REPLACEMENT knee replacement KNEE SURGERY REMOVAL PLEURAL CATHETER Bilateral 08/12/2021 Procedure: BILATERAL PLEURAL CATHETERS REMOVAL; Surgeon: Jalil Sparks MD; [place] [facility]; Service: Cardiothoracic RENAL BIOPSY TONSILLECTOMY [...] months, for elevated CEA documented in this [id number] Evaluation + Plan note* Assessment & Plan [...] also not appropriate at the present time. [id number] Evaluation + Plan note* Assessment & Plan Note - Lenin Ramirez MD - 12/06/2022 12:27 PM EDTAssociated Problem(s): Hyperlipidemia He remains on moderate dose, high potency statin therapy which he tolerates well with adequate lipid levels. No changes were made today. [id number] Miscellaneous Notes* Assessment & Plan Note - [...] EDT Associated Problem(s): Coronary artery disease involving north fork coronary artery of north fork heart without angina pectoris Ed continues doing well from an ischemic standpoint with a long history of coronary disease status post surgical revascularization in August 2020. He has no angina and no nitroglycerin use. documented in this [id number] Evaluation + Plan note* Assessment & Plan [...] therapy given his persistent hypotension and hemodialysis. [id number] Evaluation + Plan note* Assessment & Plan Note - Lenin Ramirez MD - 12/06/2022 12:24 PM EDTAssociated Problem(s): Coronary artery disease involving north fork coronary artery of north fork heart without angina pectoris Ed continues doing well from an ischemic standpoint with a long history of coronary disease status post surgical revascularization in August 2020. He has no angina and no nitroglycerin use. [id number] History of Present illness Narrative* Lenin Ramirez [...] , Rfl: Assessment/Plan: Coronary artery disease involving north fork coronary artery of north fork heart without angina pectoris Ed continues doing [...] at the present time. documented in this [id number] Hospital Discharge instructions Patient Education 11/27/2022 13:25:49 [...] Follow these instructions at home: Medicines Take svzu-bst-nvbdbpj and prescription medicines only as told by [...] often using soap and water. Use hand digital hardware design engineer if soap and water are not available. [...] 10/05/2018 Document Revised: 10/05/2018 Document Reviewed: 10/05/2018 [employer] Patient Education 2020 [employer] Follow Up Care 11/23/2022 18:14:48 With:ZACK OLMOS MD Address: [address] [place] [address] [place] [address] [phone] When:3-[address] [facility] 09-17-2023 Discharge summary Date of Service [...] depression and gout. Patient was admitted to [facility] on 11/23/2022 as a transfer from [facility] due to septic shock secondary to peritoneal [...] OLMOS MD When Within 3-7 days Where: [address] [place] [address] [place] [address]- [phone] Follow Up Labs/Studies 1. No follow up [...] KATELIN MEZA DO on 11/27/2022 02:[address] [id number] Note Discharge Instructions Thank you for allowing [facility] to assist you with your healthcare needs. The following is importantdischarge information regarding your hospital visit. Your Care Team ZACK OLMOS MD What to do next Follow Up Appointments Follow Up with ZACK OLMOS MD When Within 3-7 days Where: [address] [place] [address] [place] [address] [phone] The Following Activity and Diet Have Been [...] and or supplements as they may interact [facility]. What How Much When Instructions Last Dose New cefdinir (cefdinir 300 mg oral capsule) 1 cap by mouth Every 24 hours Duration: 7 Days Pickup at [facility] [address] New metroNIDAZOLE (metroNIDAZOLE 500 mg oral tablet) 1 tab(s) by mouth Every 8 hours Duration: 7 Days Pickup at [facility] 1724 Unchanged albuterol (albuterol 2.5 mg/ 3 [...] by mouth Once a day Pharmacy Information [facility]: [address], [place] [phone] Please take this list to your next [...] Follow these instructions at home: Medicines Take fegx-rzc-hnceymy and prescription medicines only as told by [...] often using soap and water. Use hand digital hardware design engineer if soap and water are not available. [...] 10/05/2018 Document Revised: 10/05/2018 Document Reviewed: 10/05/2018 [employer] Patient Education 2020 [employer]. Additional Information VACCINATE! IT SAVES LIVES! Members of the community who have not yet received the COVID-19 vaccine and would like to receive it can visit one of [facility] vaccine clinics. There are many vaccine clinic locations within the [facility]. For locations and available times, please visit [email or web address].[place].gov/. It is important to note that some COVID mobile vaccine clinics are held outdoors and may be canceled in rainy or stormy conditions. To learn more about pediatric vaccinations (ages 5-11), we invite you to visit the [facility] webpage. https://www.[facility].org/pages/7125-Oaeke-Pogzdqabdyr-Fompwdzook-Acrvg-Cjr stions.htmlTo learn more about the COVID-19 vaccine, we invite you to visit the CDC website for a list of frequently asked questions.https://www.cdc.gov/coronavirus/2019-ncov/vaccines/faq.html [facility] Patient Portal Access Instructions: Stay connected with your healthcare team and access your personal medical information anytime with the [facility] [facility] Patient Portal. Please follow the directions below to create your [facility] [facility] account: 1.Access the email account you provided upon registration to the hospital/physician office.2.Look for an invitation email from [facility].3.Open the email and access the invitation link: AcceptInvitation to [facility] [facility].4.Fill in the required jimenez to create your account. To access your account, visit [employer]. Click the blue button labeled Access Patient [...] who you will allowto register on the [facility] Patient Portal for access to your information. You can also access the [facility] on the [facility] catracho. Simply click on Patient Portal and then log into your account. If you would like to receive a full copy of your medical records, please contact the [facility] Medical Records Department by calling [phone], Monday through Monday between 8 a.m. and [...] Call your local pharmacy or go to http://2-Observe.Brain in Hand/4I5Ho8a to find one close to you.3.Make use of household items: Use cat litter or old coffee grounds to dispose medications if other options arenot available. Mix your drugs with these household products, seal them in an airtight container andthrow it into the garbage. Call [facility]: [phone] to be sure your drugs can be [...] aware that I should contact my doctor. 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 Respiratory therapy Hospital Progress note Respiratory Therapy Evaluation Entered On: 11/27/2022 10:11 EDT Performed On: 11/27/2022 10:11 EDT by Zuly Rodriguez HEALTH CARE FACILITY ADMINISTRATOR Respiratory Therapy Evaluation RT Assessment [Frequency/Schedule] : changed to TID per protocol Zuly Rodriguez HEALTH CARE FACILITY ADMINISTRATOR - 11/27/2022 10:52 EDT Chest X-Ray : Infiltrates, atelectasis, pleural effusion Breath Sounds (RT) : Decreased bilaterally Respiratory Pattern (RT) : Regular RR=12-20 Cough (RT) : Strong, non-productive Respiratory Therapy Evaluation Score : 8 Respiratory Evaluation Triage Score : 4 - (6-10) Freq: TIDRT & Albuterol Q2hRT prn Zuly Rodriguez HEALTH CARE FACILITY ADMINISTRATOR - 11/27/2022 10:28 EDT Pulmonary Status : Pulmonary disorder Surgical Status : No surgeries Level of Activity : Ambulatory with assistance Mental Status : Alert, oriented Zuly Rodriguez HEALTH CARE FACILITY ADMINISTRATOR - 11/27/2022 10:11 EDT Digitally Signed by Zuly Rodriguez HEALTH CARE FACILITY ADMINISTRATOR on 11/27/2022 10:[address] [id number] Note Date of Service 11/26/2022 Chief Complaint [...] depression and gout. Patient was admitted to [facility] on 11/23/2022 as a transfer from [facility] due to septic shock secondary to peritoneal [...] KATELIN MEZA DO on 11/26/2022 02:[address] [facility] [id number] Nephrology Progress note Date of Service November [...] ROSANNA KEITA MD on 11/26/2022 12:[address] [facility] [id number] Note Date of Service 11/25/22 Chief Complaint [...] surgery and anxiety/depression. Patient was transferred from [facility] to [facility] on 11/23/2022 with worsening right-sided perianal [...] blood pressure stabilized, he was transferred to [facility] on 11/25/2022. Patient seen today post dialysis [...] by JOHNNY VALENCIA on 11/25/2022 03:[address] [facility] [id number] Note Date of Service 11/25/22 Chief Complaint [...] surgery and anxiety/depression. Patient was transferred from [facility] to [facility] on 11/23/2022 with worsening right-sided perianal [...] blood pressure stabilized, he was transferred to [facility] on 11/25/2022. Patient seen today post dialysis [...] by JOHNNY VALENCIA on 11/25/2022 03:[address] [facility] [id number] Nephrology Progress note Date of Service 11-25 [...] ASHLEY MARLEY MD on 11/25/2022 10:[address] [facility] [id number] Respiratory therapy Hospital Progress note Respiratory Therapy [...] by Avi Valencia on 11/24/2022 08:[address] [facility] HospitalDoinicyy15-51-2257 History and physical note Date of Service 11/24/2022 Chief Complaint Weakness, fatigue, vomiting History of Present Illness This is a 77-year-old gentleman with history of ESRD on HD [M/W/F], CAD s/p CABG, Paroxysmal A.fib on Amiodarone, not on anticoagulation due to recurrent bleeding from dialysis site. He presents from [facility] for worsening right perianal pain associated [...] cough, loss of consciousness. On arrival to [facility] he was hypotensive, tachycardic, in atrial fibrillation. He was given gentle IV fluids and broad-spectrum antibiotics. CT scan of the abdomen did not show any abscess/fluid collection. Chest x-ray showed no acute abnormality. He was started on peripheral norepinephrine andbe transferred to [facility] medical intensive care unit for evaluation [...] CONRADO PEREZ MD on 11/24/2022 07:[address] [facility] HospitalJuxcqari42-24-6826 Evaluation + Plan noteExtracted from: Title:History and [...] He presented to the emergency room at [facility] in [place] with perianal pain and fatigue. Apparently, he was also noted to have altered mental status. This is after he underwent dialysis for his chronic end-stage kidney disease. He was found to have perianal redness, however, CT scan of the abdomen showed no abscess formation. He was found to be slightly hypotensive and was given IV fluids and started on norepinephrine and transferred to [facility]. Repeat CAT scan of the abdomen [...] consultation if cellulitis worsens Anjali Lopez MD [facility] Diagnostic Tests Pending * Urinalysis 11/24/22 [facility] 09-14-2023 Nephrology Consult note Date of [...] ASHLEY MARLEY MD on 11/24/2022 10:[address] [facility] HospitalZsgourtr89-87-3942 Note ORIGINAL EXAMINATION: CT OF THE ABDOMEN [...] Sign Date: 11/24/2022 7:33:13 AM Ordering Provider: [facility]09-14-2023 Note ORIGINAL EXAMINATION: ONE XRAY VIEW [...] Sign Date: 11/24/2022 6:36:00 AM Ordering Provider: [facility]09-14-2023 NoteAtrial fibrillation Nonspecific IVCD with LAD Inferior infarct, old Electronic Signature: TIP LUCIO MD 11/24/2022 12:14:16[facility] 09-14-2023 History and physical note Date of Service 11/24/2022 Chief Complaint Weakness, fatigue, vomiting History of Present Illness This is a 77-year-old gentleman with history of ESRD on HD [M/W/F], CAD s/p CABG, Paroxysmal A.fib on Amiodarone, not on anticoagulation due to recurrent bleeding from dialysis site. He presents from [facility] for worsening right perianal pain associated [...] cough, loss of consciousness. On arrival to [facility] he was hypotensive, tachycardic, in atrial fibrillation. He was given gentle IV fluids and broad-spectrum antibiotics. CT scan of the abdomen did not show any abscess/fluid collection. Chest x-ray showed no acute abnormality. He was started on peripheral norepinephrine andbe transferred to [facility] medical intensive care unit for evaluation [...] CONRADO PEREZ MD on 11/24/2022 07:[address] [facility] HospitalQxetgkez40-89-2094 Telephone encounter Note* Telephone Encounter - Lima Beasley TECHNOLOGIST - 11/03/2022 3:01 PM EDT Prescription for Amiodarone 100 was sent to the wrong pharmacy [id number] Miscellaneous Notes* Telephone Encounter - Lmia Beasley TECHNOLOGIST - 11/03/2022 3:01 PM EDT Prescription for Amiodarone 100 was sent to the wrong pharmacy documented in this [id number] Patient's home Progress note* Actions The pt's dressing and wound care had been completed earlier this morning. The pt is requesting that the dressing not be removed, and no picture taken as the wound is in a private area, and the pt has a visitor present at this time. The pt does not wish to interrupt the visit. documented in this encounter [id number] Patient's home Progress note* Actions Rehab Potential: good Clinical Summary/ DINORAH [place] the Picture: Cert period 10/28/22 - 12-26-22 Why is home care continuing to see this patient (any change in status, diagnosis, or new treatments)? Wound education/assessment. Pt still has small open area to his coccyx. Amirah continues to be placed in the wound bed, and has shown progress. Was there any change in the disciplines caring for this patient (new PT, TRACK LAYING MACHINE OPERATOR d/c)? No. SN continues. Any labs or [...] home care services. documented in this encounter [id number] Patient's home Progress note* Actions Rehab Potential: good Clinical Summary/ DINORAH [place] the Picture: Cert period 10/28/22 - 12-26-22 Why is home care continuing to see this patient (any change in status, diagnosis, or new treatments)? Wound education/assessment. Pt still has small open area to his coccyx. Amirah continues to be placed in the wound bed, and has shown progress. Was there any change in the disciplines caring for this patient (new PT, TRACK LAYING MACHINE OPERATOR d/c)? No. SN continues. Any labs or [...] home care services. documented in this encounter [id number] Patient's home Progress note* Actions The pt's dressing and wound care had been completed earlier this morning. The pt is requesting that the dressing not be removed, and no picture taken as the wound is in a private area, and the pt has a visitor present at this time. The pt does not wish to interrupt the visit. documented in this encounter [id number] Telephone encounter Note* Telephone Encounter - Dee [...] PM) Minh Valencia Opg Hvpgkwabena Clinical (supporting Lenin Ramirez MD) 1 hour ago (12:26 PM) Good afternoon Dr. Ramirez. Hope this finds you well. I received assistance letter ($1200) from [facility] for Verquvo 5mg tab. Ed has not [...] We will see you December 06.Janae Gonzalez [id number] Miscellaneous Notes* Telephone Encounter - Dee Winston [...] I received assistance letter ($1200) from [facility] for Verquvo 5mg tab. Ed has not [...] you December 06.Janae Gonzalez documented in this [id number] Patient's home Progress note* Actions The pt's dressing and wound care had been completed earlier this morning. The pt is requesting that the dressing not be removed, and no picture taken as the wound is in a private area, and the pt has a visitor present at this time. The pt does not wish to interrupt the visit. documented in this encounter [id number] Note* Addendum Note - Froy Mason CRNA - 10/14/2022 3:49 PM EDT Addendum created 10/14/22 154 by Froy Mason CRNA Clinical Note Signed, Intraprocedure Blocks edited [id number] Miscellaneous Notes* Addendum Note - Froy Mason CRNA - 10/14/2022 3:49 PM EDT Addendum created 10/14/22 154 by Froy Mason CRNA Clinical Note Signed, Intraprocedure Blocks edited documented in this [id number] Patient's home Progress note* Actions The pt stands at his rollato r when his wound care is performed. Today, the picture was taken, as it was last week, with the cafegive catarcho. the phone was then set down, and [...] the face page of the pt on [employer] was visible. the photo was lost. Measurements recorded. documented in this encounter [id number] Miscellaneous Notes* Home Health - Amparo Goel LPN - 08/18/2022 2:54 PM EDT Missed Visit. Patient did not want a visit. today. documented in this [id number] Patient's home Note* Home Health - Amparo Goel LPN - 08/18/2022 2:54 PM EDT Missed Visit. Patient did not want a visit. today. [id number] Telephone encounter Note* Telephone Encounter - Lima Beasley TECHNOLOGIST - 07/26/2022 9:00 AM EDT Amiodarone 200mg was DC'd [id number] Miscellaneous Notes* Telephone Encounter - Lima Beasley TECHNOLOGIST - 07/26/2022 9:00 AM EDT Amiodarone 200mg was DC'd documented in this [id number] Patient's home Progress note* Narratives Pt and spouse agreeable to d ischarge today. Pt reports attempts compliance with HEP daily, and is trying to walk more. Pt mowed his yard yesterday on the riding mower. documented in this encounter [id number] Evaluation + Plan note* Assessment & Plan Note - Lenin Ramirez MD - 05/31/2022 12:12 PM EDTAssociated Problem(s): Chronic systolic congestive heart failure (HCC) His recent echocardiogram read demonstrated significant LV dysfunction with an ejection fraction approximate 25 to 30%. Fortunately he has no overt signs or symptoms of heart failure on his current regimen. No changes were made today. [id number] Evaluation + Plan note* Assessment & Plan Note - Lenin Ramirez MD - 05/31/2022 12:12 PM EDTAssociated Problem(s): Essential hypertension His blood pressure which had been quite labile because of his hemodialysis, has been reasonably well controlled on his current regimen with no significant highs or lows. I made no changes today. [id number] Miscellaneous Notes* Assessment & Plan Note - [...] EDT Associated Problem(s): Coronary artery disease involving north fork coronary artery of north fork heart without angina pectoris Given the extensive nature of this gentlemen's disease he is actually doing quite well now several years post CABG. He has no ischemic symptoms and remains relatively functional given all his other issues. No changes were made in his antianginal therapy. documented in this [id number] Evaluation + Plan note* Assessment & Plan Note - Lenin Ramirez MD - 05/31/2022 12:11 PM EDT Associated Problem(s): Coronary artery disease involving north fork coronary artery of north fork heart without angina pectoris Given the extensive nature of this gentlemen's disease he is actually doing quite well now several years post CABG. He has no ischemic symptoms and remains relatively functional given all his other issues. No changes were made in his antianginal therapy. [id number] History of Present illness Narrative* Lenin Ramirez [...] standpoint. He is scheduled to see his supervisor concrete stone fabricating soon and I reiterated the importance of [...] 25 tablet, Rfl: 4 OXYGEN-AIR DELIVERY SYSTEMS [facility], Administer 3 L into one nostril as [...] Rfl: 3 Assessment/Plan: Coronary artery disease involving north fork coronary artery of north fork heart without angina pectoris Given the extensive [...] changes were made today. documented in this [id number] Patient's home Progress note* Narratives 76 yo male referred to [facility] services following hospitalization from 04/26/22-04/30/22 for R colon cancer and is s/p hemicolectomy on 04/26/22. Pt is on continuous O2 with BiPAP. PMHX: malignant neoplasm of ascending colon, MARCELO on CPAP, B pleural effusion, COPD, paraoxysmal v-tach, HTN, CAD, NSTEMI, paraoxysmal a-fib, CKD stage IV, ESRD on dialysis, dyspnea on exertion, NM s/p CABG in 10/2020, anemia, PNA, sepsis, [...] wheel chair, transport chair, FWW, lift chair, coffee bar attendant, tripod cane, bath chair, elevated toilet seat, [...] complete, PT 2x2, 1x1 Skilled interventions at [facility] included: Education provided for edema management, abdominal precautions, abdominal bracing, avoidance of valsalva, recommended use of gait belt and POC with pt and spouse agreeing/consenting. All questions answered, contact information provided for future questions/concerns. documented in this encounter [id number] Anesthesiology Postoperative evaluation and management note * Anesthesia Postprocedure Evaluation - Jaun Mccallum MD - 04/26/2022 12:00 PM EST Anesthesia Post Evaluation * * Refer to nursing documentation for PACU vitals * * Patient participation: patient participated Mental status: sleepy but conscious Pain management: adequate Anesthetic complications: no Nausea / vomiting: no Respiratory / airway status: nasal cannula Postoperative hydration: hemodynamically stable [facility] Work Phone: [phone]) 804-134302-14-2023 Surgical operation note* Anesthesia Postprocedure Evaluation - [...] Comment: 11/09/2021 7:47 AM Patient Status: Outpatient Straw Hat Machine Operator: Zenia Randolph, ISIDORO, RVT Exam Type: ECHOCARDIOGRAM LIMITED WITH CONTRAST Study Info Indications - Re-assess LV function I50.22 - Chronic systolic (congestive) heart failure Referring Physician: LENIN RAMIREZ ; [id number] BMI: 29.91 kg/m2 Summary 1. Limited Empty [...] anemia Other Positive: cancer documented in this [id number] Procedure anesthesia Narrative * Procedure Summary Procedure [...] Андрей Claros RN documented in this encounter [id number] Anesthesiology procedure note* Anesthesia Procedure Notes - Froy Mason CRNA - 04/26/2022 10:19 AM ESTAssociated Order(s): NG/OG Tube NG/OG Tube Tube type: orogastric Tube size: 18 Fr Tube location: mouth Placement verification: suction return *See MAR for medication administration [facility] Work Phone: [phone]) 210-485902-14-2023 Anesthesiology procedure note* Anesthesia Procedure Notes - [...] medic student *See MAR for medication administration [id number] Anesthesiology Preoperative evaluation and management note * [...] Comment: 11/09/2021 7:47 AM Patient Status: Outpatient Straw Hat Machine Operator: Zenia Randolph, VINICIUSCS, RVT Exam Type: ECHOCARDIOGRAM LIMITED WITH CONTRAST Study Info Indications - Re-assess LV function I50.22 - Chronic systolic (congestive) heart failure Referring Physician: LENIN RAMIREZ ; [id number] BMI: 29.91 kg/m2 Summary 1. Limited Empty [...] / Musculoskeletal Positive: anemia Other Positive: cancer [id number] History of Present illness Narrative* Sherry George DO - 04/06/2022 8:39 AM EST NEW PATIENT -- CECAL MASS This is a 76 y/o male who presents to office at the request of Dr. Pizano, surgeon at [facility], for evaluation and treatment of a cecal [...] creatinine ratio less than 30 mg/g ([facility]) COPD, severe ([facility]) 03/2018 Coronary artery disease FSGS (focal segmental glomerulosclerosis) Hyperlipidemia Hypertension MRSA (methicillin resistant Staphylococcus aureus) UNKNOWN Myocardial infarction ([facility]) NYHA class 4 heart failure with reduced ejection fraction ([facility]) LVEF 30% MARCELO on CPAP 2018 Pneumonia Sepsis ([facility]) Current Outpatient Medications: acetaminophen (TYLENOL) 325 MG [...] BYPASS GRAFT; Surgeon: Mil Dee MD; [place] [facility] [place]; Service: Cardiothoracic CARDIAC CATHETERIZATION N/A 08/11/2014 Procedure: Left Heart Cath Possible PTCA/Stent; Surgeon: Lenin Ramirez MD; Location: [facility] HEMATOLOGIST ONCOLOGIST; Service: CARDIAC CATHETERIZATION Right 12/31/2014 Procedure: Left Heart Cath Possible PTCA/Stent; Surgeon: Ranulfo Cobb MD; Location: [facility] HEMATOLOGIST ONCOLOGIST; Service: CARDIAC CATHETERIZATION 08/11/2014 EF: 55% CARDIAC [...] CATHETER PLACEMENT; Surgeon: Jalil Sparks MD; Location: [facility] HYBRID [facility]; Service: Cardiothoracic INSERTION PLEURAL CATHETER Left 01/19/2021 Procedure: LEFT PLEUR X CATHETER PLACEMENT; Surgeon: Jalil Sparks MD; Location: [facility] [place]; Service: Cardiothoracic INTERVENTIONAL RADIOLOGY PROCEDURE 08/27/2020 IR THORACENTESIS LT 08/27/2020 Jesus Choudhary MD [facility] INTERVENTION RAD INTERVENTIONAL RADIOLOGY PROCEDURE 08/27/2020 IR THORACENTESIS RT 08/27/2020 Jesus Choudhary MD [facility] INTERVENTION RAD INTERVENTIONAL RADIOLOGY PROCEDURE 10/27/2020 IR THORACENTESIS LT 10/27/2020 Varun Kathleen MD [facility] INTERVENTION RAD INTERVENTIONAL RADIOLOGY PROCEDURE 10/27/2020 IR THORACENTESIS RT 10/27/2020 Varun Kathleen MD [facility] INTERVENTION RAD JOINT REPLACEMENT knee replacement KNEE SURGERY REMOVAL PLEURAL CATHETER Bilateral 08/12/2021 Procedure: BILATERAL PLEURAL CATHETERS REMOVAL; Surgeon: Jalil Sparks MD; Location: [facility]; Service: Cardiothoracic RENAL BIOPSY TONSILLECTOMY [...] ascending colon (HCC) Coronary artery disease involving north fork coronary artery of north fork heart without angina pectoris S/P CABG (coronary [...] medical and cardiac clearance documented in this [id number] History of Present illness Narrative* Christina Hanley RN - 12/15/2021 3:23 PM EDT Referral received from [facility] today--Call received from [facility] Katt at [facility] at this time, advised [facility] could not accept documented in this [id number] Note* Addendum Note - Rachel Strange MA - 09/01/2021 1:56 PM EDTAddended by: RACHEL STRANGE on: 09/01/2021 01:56 PM Modules accepted: Orders [id number] Note* Addendum Note - Rachel Strange MA - 09/01/2021 1:56 PM EDTAddended by: RACHEL STRANGE on: 09/01/2021 01:56 PM Modules accepted: Orders [id number] Miscellaneous Notes* Addendum Note - Rachel Strange [...] as well. Called pharmacy and spoke to [employer] and she ran the voucher card it covered the 2.5 mg for 2 weeks. Will mail the patient 5 mg samples to cover the other 2 weeks. Called and spoke to patient's and explained the above. She was very thankful. Verquvo 5 mg every day Qty 14 Lot- [id number] EXP-04/15/2022 * Telephone Encounter - Lenin Ramirez [...] assured me they have a very generous' Operator Maintainer program. * Telephone Encounter - Rachel Strange MA - 09/01/2021 12:27 PM EDT Once rx is sent and signed, I will call pharmacy and check roque. I also reached out to the rep, will wait to hear a response regarding assistance with the drug. Samples are available of this drug though at [facility], if needed. * Telephone Encounter - [...] increase to5 mg daily. documented in this [id number] Miscellaneous Notes* Addendum Note - Rachel Strange MA - 09/01/2021 1:56 PM EDTAddended by: RACHEL STRANGE on: 09/01/2021 01:56 PM Modules accepted: Orders * Telephone Encounter - Rachel Strange MA - 09/01/2021 1:20 PM EDT Yes, of course. Called and spoke to [employer] to get a copay for the med and it will require a PA first.I will work on PA once it comes through fax. Rep stopped by and gave me free 30 day voucher cards, which covers the 2.5 mg for 2 weeks and 5 mg for 2 weeks as well. Called pharmacy and spoke to [employer] and she ran the voucher card it covered the 2.5 mg for 2 weeks. Will mail the patient 5 mg samples to cover the other 2 weeks. Called and spoke to patient's and explained the above. She was very thankful. Verquvo 5 mg every day Qty 14 Lot- [id number] EXP-04/15/2022 * Telephone Encounter - Lenin Ramirez [...] assured me they have a very generous' Operator Maintainer program. * Telephone Encounter - Rachel Strange MA - 09/01/2021 12:27 PM EDT Once rx is sent and signed, I will call pharmacy and check roque. I also reached out to the rep, will wait to hear a response regarding assistance with the drug. Samples are available of this drug though at [facility], if needed. * Telephone Encounter - Dee Winston RN - 09/01/2021 12:22 PM EDT ----- Message from Lenin Rmairez MD sent at 09/01/2021 12:01 PM EDT [...] increase to5 mg daily. documented in this [id number] Telephone encounter Note* Telephone Encounter - Rachel Strange MA - 09/01/2021 1:20 PM EDT Yes, of course. Called and spoke to [employer] to get a copay for the med and it will require a PA first.I will work on PA once it comes through fax. Rep stopped by and gave me free 30 day voucher cards, which covers the 2.5 mg for 2 weeks and 5 mg for 2 weeks as well. Called pharmacy and spoke to [employer] and she ran the voucher card it covered the 2.5 mg for 2 weeks. Will mail the patient 5 mg samples to cover the other 2 weeks. Called and spoke to patient's and explained the above. She was very thankful. Verquvo 5 mg every day Qty 14 Lot- [id number] EXP-04/15/2022 [id number] Telephone encounter Note* Telephone Encounter - Lenin Ramirez MD - 09/01/2021 1:03 PM EDT Thank you. Is there a chance we could send Ed 2 weeks of the 2.5 dose followed by 2 weeks of the 5.0 dose. If he tolerates that then we can work on the prescription. I did speak with the rep at [facility] last week and he assured me they have a very generous' Operator Maintainer program. [id number] Miscellaneous Notes* Telephone Encounter - Lenin Ramirez MD - 09/01/2021 1:03 PM EDT Thank you. Is there a chance we could send Ed 2 weeks of the 2.5 dose followed by 2 weeks of the 5.0 dose. If he tolerates that then we can work on the prescription. I did speak with the rep at [facility] last week and he assured me they have a very generous' Operator Maintainer program. * Telephone Encounter - Rachel Strange MA - 09/01/2021 12:27 PM EDT Once rx is sent and signed, I will call pharmacy and check roque. I also reached out to the rep, will wait to hear a response regarding assistance with the drug. Samples are available of this drug though at [facility], if needed. * Telephone Encounter - [...] increase to5 mg daily. documented in this [id number] Telephone encounter Note* Telephone Encounter - Rachel Strange MA - 09/01/2021 12:27 PM EDT Once rx is sent and signed, I will call pharmacy and check roque. I also reached out to the rep, will wait to hear a response regarding assistance with the drug. Samples are available of this drug though at [facility], if needed. [id number] Telephone encounter Note* Telephone Encounter - Dee [...] 2 weeks then increase to5 mg daily. [id number] Patient's home Progress note* Actions Call made [...] or his . documented in this encounter [id number] Evaluation + Plan note* Assessment & Plan Note - Lenin Ramirez MD - 08/17/2021 12:40 PM EDTAssociated Problem(s): Essential hypertension His blood pressure is excellent on his current regimen. I made no changes today. [id number] Evaluation + Plan note* Assessment & Plan Note - Lenin Ramirez MD - 08/17/2021 12:40 PM EDTAssociated Problem(s): Coronary artery disease involving north fork coronary artery of north fork heart without angina pectoris He has no ischemic changes on his EKG and no ischemic symptoms. [id number] Miscellaneous Notes* Assessment & Plan Note - Lenin Ramirez MD - 08/17/2021 12:40 PM EDTAssociated Problem(s): Essential hypertension His blood pressure is excellent on his current regimen. I made no changes today. * Assessment & Plan Note - Lenin Ramirez MD - 08/17/2021 12:40 PM EDT Associated Problem(s): Coronary artery disease involving north fork coronary artery of north fork heart without angina pectoris He has no [...] candidate for device implantation. documented in this [id number] Evaluation + Plan note* Assessment & Plan [...] may be a candidate for device implantation. [id number] History of Present illness Narrative* Lenin Ramirez [...] rhythm with sinus arrhythmia, possible old anterior NM, nonspecific T wave changes. Assessment/Plan: Chronic systolic [...] for device implantation. Coronary artery disease involving north fork coronary artery of north fork heart without angina pectoris He has no ischemic changes on his EKG and no ischemic symptoms. Essential hypertension His blood pressure is excellent on his current regimen. I made no changes today. documented in this [id number] Patient's home Progress note* Actions Pt had his pleurex drains re moved last week. Sites are CDI open to air. Pt was started on new medication to assist with sleep and some restless leg problems he has been having at night. [facility] plan is to make 2 more visits over the next 2 weeks and then discharge. documented in this encounter [id number] History of Present illness Narrative* Niurka Santana PA-C - 08/03/2021 10:45 AM EDT Spoke to Mrs Gonzalez over the phone to review recent CT results for her and plan to remove both of his pleural catheters as they have not been putting out any drainage for quite some time. Tentative plan for next . She verbalized understanding and was agreeable. documented in this [id number] Patient's home Progress note* Actions Call placed [...] voicemail available for the nurse line. Only concert or lecture hall manager Nilesh. Another call will be made tomorrow [...] his incentive spirometer. documented in this encounter [id number] Patient's home Progress note* Actions Pleurex catheters were not d rained today. The pt has a f/u appt with the surgeon in 2 days to discuss the possiblity of removing them d/t the drains not putting out any drainage over the last 3 weeks. documented in this encounter [id number] Miscellaneous Notes* Telephone Encounter - Lima Beasley TECHNOLOGIST - 04/29/2021 2:34 PM EST Pt needs samples of Eliquis 5mg mailed to him documented in this [id number] History of Present illness Narrative* Jalil Sparks [...] creatinine ratio less than 30 mg/g ([facility]) COPD, severe ([facility]) 03/2018 Coronary artery disease FSGS (focal segmental glomerulosclerosis) Hyperlipidemia Hypertension Myocardial infarction ([facility]) NYHA class 4 heart failure with reduced ejection fraction ([facility]) LVEF 30% MARCELO on CPAP 2018 Past Surgical History: Procedure Laterality Date CABG N/A 09/03/2020 Procedure: CORONARY ARTERY BYPASS GRAFT; Surgeon: Mil Dee MD; [place] [facility]; Service: Cardiothoracic CARDIAC CATHETERIZATION N/A 08/11/2014 Procedure: Left Heart Cath Possible PTCA/Stent; Surgeon: Lenin Ramirez MD; Location: [facility] HEMATOLOGIST ONCOLOGIST; Service: CARDIAC CATHETERIZATION Right 12/31/2014 Procedure: Left Heart Cath Possible PTCA/Stent; Surgeon: Ranulfo Cobb MD; Location: [facility] HEMATOLOGIST ONCOLOGIST; Service: CARDIAC CATHETERIZATION 08/11/2014 EF: 55% CARDIAC [...] CATHETER PLACEMENT; Surgeon: Jalil Sparks MD; Location: [facility] HYBRID [facility]; Service: Cardiothoracic INSERTION PLEURAL CATHETER Left 01/19/2021 Procedure: LEFT PLEUR X CATHETER PLACEMENT; Surgeon: Jalil Sparks MD; Location: [facility]; Service: Cardiothoracic INTERVENTIONAL RADIOLOGY PROCEDURE 08/27/2020 IR THORACENTESIS LT 08/27/2020 Jesus Choudhary MD [facility] INTERVENTION RAD INTERVENTIONAL RADIOLOGY PROCEDURE 08/27/2020 IR THORACENTESIS RT 08/27/2020 Jesus Choudhary MD [facility] INTERVENTION RAD INTERVENTIONAL RADIOLOGY PROCEDURE 10/27/2020 IR THORACENTESIS LT 10/27/2020 Varun Kathleen MD [facility] INTERVENTION RAD INTERVENTIONAL RADIOLOGY PROCEDURE 10/27/2020 IR THORACENTESIS RT 10/27/2020 Varun Kathleen MD [facility] INTERVENTION RAD JOINT REPLACEMENT knee replacement KNEE [...] Imaging: CXR reviewed today. Jalil Sparks MD [facility] [address], [address] [place] [address] Office: [phone] [email or web address] Link documented in this [id number] History of Present illness Narrative* Niurka Santana [...] can contact our office. documented in this [id number] Miscellaneous Notes* Addendum Note - Erick Devi MD - 01/18/2021 12:11 PM EST Addendum created 01/18/21 1211 by Erick Devi MD Attestation recorded in Intraprocedure, Intraprocedure Attestations filed documented in this [id number] Procedure anesthesia Narrative * Procedure Summary Procedure [...] Radha Lopez RN documented in this encounter [id number] Surgical operation note* Anesthesia Postprocedure Evaluation - [...] COPD sleep apnea Cardiovascular Positive: hypertension past NM, CAD, CABG/stent, dysrhythmias (VTACH, PAF) CHF, hyperlipidemia, cardiomyopathy pulmonary hypertension Gastrointestinal / Hepatic / Renal Positive: renal disease and CRI Endocrine / Musculoskeletal Positive: anemia documented in this [id number] History of Present illness Narrative* Jalil Sparks MD - 01/13/2021 4:12 PM EDT Name: [...] 2 (two) times a day [facility] [id number] [facility] [id number] [facility] 1016 ID [id number] . ASCORBATE CALCIUM (VITAMIN C ORAL) Take [...] creatinine ratio less than 30 mg/g ([facility]) COPD, severe ([facility]) 03/2018 Coronary artery disease FSGS (focal segmental glomerulosclerosis) Hyperlipidemia Hypertension Myocardial infarction (HCC) 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) LVEF 30% MARCELO on CPAP 2018 Past Surgical History: Procedure Laterality Date CABG N/A 09/03/2020 Procedure: CORONARY ARTERY BYPASS GRAFT; Surgeon: Mil Dee MD; [place]: [facility]; Service: Cardiothoracic CARDIAC CATHETERIZATION N/A 08/11/2014 Procedure: Left Heart Cath Possible PTCA/Stent; Surgeon: Lenin Ramirez MD; Location: [facility] HEMATOLOGIST ONCOLOGIST; Service: CARDIAC CATHETERIZATION Right 12/31/2014 Procedure: Left Heart Cath Possible PTCA/Stent; Surgeon: Ranulfo Cobb MD; Location: [facility] HEMATOLOGIST ONCOLOGIST; Service: CARDIAC CATHETERIZATION 08/11/2014 EF: 55% CARDIAC [...] IR THORACENTESIS LT 08/27/2020 Jesus Choudhary MD [facility] INTERVENTION RAD INTERVENTIONAL RADIOLOGY PROCEDURE 08/27/2020 IR THORACENTESIS RT 08/27/2020 Jesus Choudhary MD [facility] INTERVENTION RAD INTERVENTIONAL RADIOLOGY PROCEDURE 10/27/2020 IR THORACENTESIS LT 10/27/2020 Varun Kathleen MD [facility] INTERVENTION RAD INTERVENTIONAL RADIOLOGY PROCEDURE 10/27/2020 IR THORACENTESIS RT 10/27/2020 Varun Kathleen MD [facility] INTERVENTION RAD JOINT REPLACEMENT knee replacement KNEE [...] Friends and Family: Not on file Attends [employer]: Not on file Active Member of [...] on the right. ECO Jalil Sparks MD [facility] [address], [address] [place] [address] Office: [phone] [email or web address] Link documented in this [id number] Miscellaneous Notes* Assessment & Plan Note - Park Hawk CNP - 01/04/2021 4:35 PM EDT Associated Problem(s): Chronic systolic congestive heart failure (HCC) Ed continues to have ongoing issues with fluid overload. He had a right thoracentesis on 1at [facility] with 550 mL removed. He has had increasing dyspnea on exertion over the past week and had a chest x- ray on 01/01/2021. He was notified today that the pleural effusions. [facility] contacted and Ed will have a thoracentesis [...] 2 months of placement. documented in this [id number] History of Present illness Narrative* Park Hawk CNP - 01/04/2021 4:28 PM EDT [facility] [address] [facility] [address] [facility] [id number] Assessment & Plan: Stage 4 chronic kidney disease (HCC) Ed has AV fistula constructed 12/14/2020. The wait time for beginning hemodialysis at some point after 2 months of placement. Chronic systolic congestive heart failure (HCC) Ed continues to have ongoing issues with fluid overload. He had a right thoracentesis on 12/25/2020t [facility] with 550 mL removed. He has had increasing dyspnea on exertion over the past week and had a chest x- ray on 01/01/2021. He was notified today that the pleural effusions. [facility] contacted and Ed will have a thoracentesis [...] office today for Follow-up (go over Xray Chualar SOB/ - Booster? Dr Ramirez said not to last time he had the Moderna Restless legs per James possibly remove the AMIO Melationin did not work ) HPI: Minh Gonzalez is here today as a result of him calling the office today stating that he was notified by his international nurse's office that his pleural effusions were worse [...] creatinine ratio less than 30 mg/g ([facility]) COPD, severe ([facility]) 03/2018 Coronary artery disease FSGS (focal segmental glomerulosclerosis) Hyperlipidemia Hypertension Myocardial infarction ([facility]) NYHA class 4 heart failure with reduced ejection fraction ([facility]) LVEF 30% MARCELO on CPAP 2018 Past Surgical History: Procedure Laterality Date CABG N/A 09/03/2020 Procedure: CORONARY ARTERY BYPASS GRAFT; Surgeon: Mil Dee MD; [place] [facility]; Service: Cardiothoracic CARDIAC CATHETERIZATION N/A 08/11/2014 Procedure: Left Heart Cath Possible PTCA/Stent; Surgeon: Lenin Ramirez MD; Location: [facility] HEMATOLOGIST ONCOLOGIST; Service: CARDIAC CATHETERIZATION Right 12/31/2014 Procedure: Left Heart Cath Possible PTCA/Stent; Surgeon: Ranulfo Cobb MD; Location: [facility] HEMATOLOGIST ONCOLOGIST; Service: CARDIAC CATHETERIZATION 08/11/2014 EF: 55% CARDIAC [...] IR THORACENTESIS LT 08/27/2020 Jesus Choudhary [place] [facility] [place] RAD INTERVENTIONAL RADIOLOGY PROCEDURE 08/27/2020 IR THORACENTESIS RT 08/27/2020 Jesus Choudhary MD [facility] [place] RAD INTERVENTIONAL RADIOLOGY PROCEDURE 10/27/2020 IR THORACENTESIS LT 10/27/2020 Varun Kathleen MD [facility] INTER[place]ION RAD INTERVENTIONAL RADIOLOGY PROCEDURE 10/27/2020 IR THORACENTESIS RT 10/27/2020 Varun Kathleen MD [facility] INTERVENTION RAD JOINT REPLACEMENT knee replacement KNEE [...] 2 (two) times a day [facility] [id number] [facility] [id number] [facility] 1016 [place] [id number] . ASPIRIN ORAL Take 81 mg by [...] 5' 7 27 minutes spent with patient [id number] Follow Up Ordered: Return for Appointment as scheduled in February with [employer] PROJECT MANAGER in [place]. Park Hawk CNP * Demetrice Jain MA [...] patient is not nervous/anxious. documented in this [id number] Miscellaneous Notes* Assessment & Plan Note - [...] EDT Associated Problem(s): Coronary artery disease involving north fork coronary artery of north fork heart without angina pectoris From ischemic issue Ed is doing quite well with no recurrent angina or other associated symptoms. No changes were made in his medicines. documented in this [id number] History of Present illness Narrative* Lenin Ramirez [...] and is considering initiation of dialysis in [facility] several months. He has had no [...] 2 (two) times a day [facility] [id number] [facility] [id number] [facility] 1016 [place] [id number] . ASCORBATE CALCIUM (VITAMIN C ORAL) Take [...] tablets . Assessment/Plan: Coronary artery disease involving north fork coronary artery of north fork heart without angina pectoris From ischemic issue [...] of Systems Cardiovascular: Negative. documented in this [id number] Miscellaneous Notes* Assessment & Plan Note - [...] not requiring supplemental O2 documented in this [id number] History of Present illness Narrative* Park Hawk CNP - 11/23/2020 1:49 PM EDT [facility] [address] [facility] [address] [facility] [id number] Assessment & Plan: MARCELO on CPAP Uses [...] (TOPROL-XL) 25 MG 24 hr tablet Subjective: Mnih Gonzalez is a 75 y.o. male seen [...] creatinine ratio less than 30 mg/g ([facility]) COPD, severe ([facility]) 03/2018 Coronary artery disease FSGS (focal segmental glomerulosclerosis) Hyperlipidemia Hypertension Myocardial infarction ([facility]) NYHA class 4 heart failure with reduced ejection fraction ([facility]) LVEF 30% MARCELO on CPAP 2018 Past Surgical History: Procedure Laterality Date CABG N/A 09/03/2020 Procedure: CORONARY ARTERY BYPASS GRAFT; Surgeon: Mil Dee MD; [place] [facility] [place]; Service: Cardiothoracic CARDIAC CATHETERIZATION N/A 08/11/2014 Procedure: Left Heart Cath Possible PTCA/Stent; Surgeon: Lenin Ramirez MD; [place]: [facility] HEMATOLOGIST ONCOLOGIST; Service: CARDIAC CATHETERIZATION Right 12/31/2014 Procedure: Left Heart Cath Possible PTCA/Stent; Surgeon: Ranulfo Cobb MD; [place]: [facility] HEMATOLOGIST ONCOLOGIST; Service: CARDIAC CATHETERIZATION 08/11/2014 EF: 55% CARDIAC CATHETERIZATION 11/06/2006 EF: 45% CARDIAC CATHETERIZATION 08/09/2005 EF: 50% CARDIAC CATHETERIZATION 07/08/2005 EF: 45% CARDIAC CATHETERIZATION 12/31/2014 EF: 55% CORONARY ANGIOPLASTY WITH STENT PLACEMENT 08/09/2005 NORM- CX, RCA CORONARY ANGIOPLASTY WITH STENT PLACEMENT 07/08/2005 NORM- RCA CORONARY STENT PLACEMENT FOOT SURGERY Right INTERVENTIONAL RADIOLOGY PROCEDURE 08/27/2020 IR THORACENTESIS LT 08/27/2020 Jesus Choudhary MD [facility] INTER[place]ION RAD INTERVENTIONAL RADIOLOGY PROCEDURE 08/27/2020 IR THORACENTESIS RT 08/27/2020 Jesus Choudhary MD [facility] INTERVENTION RAD INTERVENTIONAL RADIOLOGY PROCEDURE 10/27/2020 IR THORACENTESIS LT 10/27/2020 Varun Kathleen MD [facility] INTERVENTION RAD INTERVENTIONAL RADIOLOGY PROCEDURE 10/27/2020 IR THORACENTESIS RT 10/27/2020 Varun Kathleen MD [facility] INTERVENTION RAD JOINT REPLACEMENT knee replacement KNEE [...] 2 (two) times a day [facility] [id number] [facility] [id number] [facility] 1016 [place] [id number] . ASPIRIN ORAL Take 81 mg by [...] 5' 7 25 minutes spent with patient [id number] Follow Up Ordered: Return for As scheduled [...] patient is not nervous/anxious. documented in this [id number] Miscellaneous Notes* Assessment & Plan Note - [...] Associated Problem(s): PAF (paroxysmal atrial fibrillation) ([facility]) ECG today continues to demonstrate atrial fibrillation [...] to needing supplemental O2. documented in this [id number] History of Present illness Narrative* Park Hawk CNP - 10/26/2020 8:25 AM EDT [facility] [address] [facility] [address] [facility] [id number] Assessment & Plan: MARCELO on CPAP Has [...] CABG (Coronary artery bypass graft) 09/03/2020 at [facility]. He states he initially felt improved in [...] creatinine ratio less than 30 mg/g ([facility]) COPD, severe ([facility]) 03/2018 Coronary artery disease FSGS (focal segmental glomerulosclerosis) Hyperlipidemia Hypertension Myocardial infarction ([facility]) NYHA class 4 heart failure with reduced ejection fraction ([facility]) LVEF 30% MARCELO on CPAP 2018 Past Surgical History: Procedure Laterality Date CABG N/A 09/03/2020 Procedure: CORONARY ARTERY BYPASS GRAFT; Surgeon: Mil Dee MD; [place] [facility] [place]; Service: Cardiothoracic CARDIAC CATHETERIZATION N/A 08/11/2014 Procedure: Left Heart Cath Possible PTCA/Stent; Surgeon: Lenin Ramirez MD; [place]: [facility] HEMATOLOGIST ONCOLOGIST; Service: CARDIAC CATHETERIZATION Right 12/31/2014 Procedure: Left Heart Cath Possible PTCA/Stent; Surgeon: Ranulfo Cobb MD; [place]: [facility] HEMATOLOGIST ONCOLOGIST; Service: CARDIAC CATHETERIZATION 08/11/2014 EF: 55% CARDIAC CATHETERIZATION 11/06/2006 EF: 45% CARDIAC CATHETERIZATION 08/09/2005 EF: 50% CARDIAC CATHETERIZATION 07/08/2005 EF: 45% CARDIAC CATHETERIZATION 12/31/2014 EF: 55% CORONARY ANGIOPLASTY WITH STENT PLACEMENT 08/09/2005 NORM- CX, RCA CORONARY ANGIOPLASTY WITH STENT PLACEMENT 07/08/2005 NORM- RCA CORONARY STENT PLACEMENT FOOT SURGERY Right INTERVENTIONAL RADIOLOGY PROCEDURE 08/27/2020 IR THORACENTESIS LT 08/27/2020 Jesus Choudhary MD [facility] INTERVENTION RAD INTERVENTIONAL RADIOLOGY PROCEDURE 08/27/2020 IR THORACENTESIS RT 08/27/2020 Jesus Choudhary MD [facility] INTERVENTION RAD JOINT REPLACEMENT knee replacement KNEE [...] 2 (two) times a day [facility] [id number] [facility] [id number] [facility] 1016 [place] [id number] . ASCORBATE CALCIUM (VITAMIN C ORAL) Take [...] PVC noted. 30 minutes spent with patient [id number] Follow Up Ordered: Return for Appointment as [...] patient is not nervous/anxious. documented in this [id number] Instructions* Patient Instructions* Maritza Barron MA - 10/26/2020 8:00 AM EDT How to contact your Care Team: Park Hawk CNP In case of an emergency please call 911. REFILLS: When in need for refills please call your care team or the office at [phone]. Please include medication name, pharmacy name, and specify 30-day or 90-day supply. Please check with your pharmacy within 24 hours of request for your refill. You must follow up as directed to continue current refills. Thank you! documented in this [id number] History of Present illness Narrative* Mil Dee MD - 10/21/2020 8:44 AM EDT Dictation on: 10/21/2020 8:45 AM by: MIL DEE [[id number]] documented in this [id number] History of Present illness Narrative* Leonila Walls RN - 09/30/2020 9:18 AM EDT Heart Disease Management Nurse Progress Note [facility] OFFICE 09/30/20 Minh Gonzalez 1945 Congestive [...] 11/25/2020). Leonila Walls RN documented in this [id number] Instructions* Patient Instructions* Leonila Walls RN - 09/30/2020 8:44 AM EDT Recommendations for home daily weights with a reminder to call with weight gain > 3 pounds, increased shortness of breath, increase in swelling, getting tired faster, urinating less frquently, dizziness or lightheadedness. Call with questions or concerns documented in this [id number] History of Present illness Narrative* Pearl Noble PA-C - 09/16/2020 9:02 AM EDT Called and discussed labs and CXR with patient Instructed to follow up as soon as possible with Electricity Trading Analyst He voiced understanding Had no complaints and stated wounds were healing nicely Was advised to call our office with any concerns documented in this [id number] Instructions* Patient Instructions* Leonila Walls RN - 08/03/2020 2:32 PM EDT Recommendations for home daily weights with a reminder to call with weight gain > 3 pounds, increased shortness of breath, increase in swelling, getting tired faster, urinating less frquently, dizziness or lightheadedness. Call with questions or concerns documented in this [id number] History of Present illness Narrative* Leonila Walls RN - 08/03/2020 2:11 PM EDT Heart Disease Management Nurse Progress Note [facility] OFFICE 08/03/20 Minh Gonzalez 1945 Congestive [...] file. Leonila Walls RN [facility] Diagnosis Shortness of breath- Primary Chronic [...] heart failure (HCC) Coronary artery disease involving north fork coronary artery of north fork heart without angina pectoris Essential hypertension Unspecified [...] failure (HCC)- Primary Coronary artery disease involving north fork coronary artery of north fork heart without angina pectoris Dyspnea on exertion Other dyspnea and respiratory abnormality Generalized weakness [facility] Diagnosis Coronary artery disease involving north fork coronary artery of north fork heart without angina pectoris- Primary Chronic systolic congestive heart failure (HCC) Essential hypertension Unspecified essential hypertension [facility] Diagnosis Chronic systolic congestive heart failure (HCC)- Primary Dyspnea on exertion Other dyspnea and respiratory abnormality [facility] Diagnosis Adenocarcinoma (HCC)- Primary Other malignant neoplasm of unspecified site [facility] Diagnosis MARCELO on CPAP- Primary Malignant neoplasm of ascending colon (HCC) Malignant neoplasm of ascending colon Coronary artery disease involving north fork coronary artery of north fork heart without angina pectoris S/P CABG (coronary [...] [facility]* Diagnosis Coronary artery disease involving north fork coronary artery of north fork heart without angina pectoris- Primary Chronic systolic [...] unspecified whether acute organ dysfunction present ([facility]) [facility] Diagnosis Coronary artery disease involving north fork coronary artery of north fork heart without angina pectoris Chronic systolic congestive heart failure (HCC) Mixed hyperlipidemia PAF (paroxysmal atrial fibrillation) (HCC) Atrial fibrillation [facility] Diagnosis Elevated CEA- Primary Elevated carcinoembryonic antigen (CEA) Malignant neoplasm of ascending colon (HCC) Malignant neoplasm of ascending colon Cellulitis of right buttock documented in this encounter [facility] course Narrative No data available for this section [facility] Patient's home Plan of care note* Visit Details Visit Type -SN HH Routine Vi sit Discipline -Long-Term Problems Problem Start Date Status Goals Interventions Wound Care and/or Skin Problems Disciplines: Long-Term 01/20/2021 Active 1 goal linked to scheduled/documented intervention 1 goal intervention scheduled/documented in this visit Assess and Instruct Home Visit Disciplines: Long-Term 01/20/2021 Active 1 goal linked to scheduled/documented intervention 4 goal interventions scheduled/documented in this visit Medication Management Disciplines: Long-Term 01/20/2021 Active 1 goal linked to scheduled/documented intervention 1 goal intervention scheduled/documented in this visit Pain Management Disciplines: Long-Term 01/20/2021 Active 1 goal linked to scheduled/documented [...] Management Goal:Pain Completed [facility] Visit Details Visit Type -SN HH Routine Vi sit Discipline -Long-Term Problems Problem Start Date Status Goals Interventions Wound Care and/or Skin Problems Disciplines: Long-Term 01/20/2021 Active 1 goal linked to scheduled/documented intervention 1 goal intervention scheduled/documented in this visit Assess and Instruct Home Visit Disciplines: Long-Term 01/20/2021 Active 1 goal linked to scheduled/documented intervention 4 goal interventions scheduled/documented in this visit Medication Management Disciplines: Long-Term 01/20/2021 Active 1 goal linked to scheduled/documented intervention 1 goal intervention scheduled/documented in this visit Pain Management Disciplines: Long-Term 01/20/2021 Active 1 goal linked to scheduled/documented [...] of care note* Visit Details Visit Type -[facility] Star t of Care Discipline -Long-Term Problems Problem Start Date Status Goals Interventions Assess and Instruct Home Visit Disciplines: Long-Term 01/20/2021 Active 1 goal linked to scheduled/documented intervention 4 goal interventions scheduled/documented in this visit Medication Management Disciplines: Long-Term 01/20/2021 Active 1 goal linked to scheduled/documented intervention 1 goal intervention scheduled/documented in this visit Pain Management Disciplines: Long-Term 01/20/2021 Active 1 goal linked to scheduled/documented [...] of care note* Visit Details Visit Type -[facility] Star t of Care Discipline -Long-Term Problems Problem Start Date Status Goals Interventions Assess and Instruct Home Visit Disciplines: Long-Term 01/20/2021 Active 1 goal linked to scheduled/documented intervention 4 goal interventions scheduled/documented in this visit Medication Management Disciplines: Long-Term 01/20/2021 Active 1 goal linked to scheduled/documented intervention 1 goal intervention scheduled/documented in this visit Pain Management Disciplines: Long-Term 01/20/2021 Active 1 goal linked to scheduled/documented [...] Type -SN HH Routine Vi sit Discipline -Long-Term Problems Problem Start Date Status Goals Interventions Wound Care and/or Skin Problems Disciplines: Long-Term 01/20/2021 Active 1 goal linked to scheduled/documented intervention 1 goal intervention scheduled/documented in this visit Assess and Instruct Home Visit Disciplines: Long-Term 01/20/2021 Active 1 goal linked to scheduled/documented intervention 4 goal interventions scheduled/documented in this visit Medication Management Disciplines: Long-Term 01/20/2021 Active 1 goal linked to scheduled/documented intervention 1 goal intervention scheduled/documented in this visit Pain Management Disciplines: Long-Term 01/20/2021 Active 1 goal linked to scheduled/documented [...] Management Goal:Pain Completed documented in this encounter [facility]'s home Plan of care note* Visit Details Visit Type -[facility] Routine Vi sit Discipline -Long-Term Problems Problem Start Date Status Goals Interventions Wound Care and/or Skin Problems Disciplines: Long-Term 01/20/2021 Active 1 goal linked to scheduled/documented intervention 1 goal intervention scheduled/documented in this visit Assess and Instruct Home Visit Disciplines: Long-Term 01/20/2021 Active 1 goal linked to scheduled/documented intervention 4 goal interventions scheduled/documented in this visit Medication Management Disciplines: Long-Term 01/20/2021 Active 1 goal linked to scheduled/documented intervention 1 goal intervention scheduled/documented in this visit Pain Management Disciplines: Long-Term 01/20/2021 Active 1 goal linked to scheduled/documented [...] Management Goal:Pain Completed documented in this encounter [facility]'s home Plan of care note* Visit Details Visit Type -[facility] Routine Vi sit Discipline -Long-Term Problems Problem Start Date Status Goals Interventions Wound Care and/or Skin Problems Disciplines: Long-Term 01/20/2021 Active 1 goal linked to scheduled/documented intervention 1 goal intervention scheduled/documented in this visit Assess and Instruct Home Visit Disciplines: Long-Term 01/20/2021 Active 1 goal linked to scheduled/documented intervention 4 goal interventions scheduled/documented in this visit Medication Management Disciplines: Long-Term 01/20/2021 Active 1 goal linked to scheduled/documented intervention 1 goal intervention scheduled/documented in this visit Pain Management Disciplines: Long-Term 01/20/2021 Active 1 goal linked to scheduled/documented [...] Management Goal:Pain Completed [facility]* Visit Details Visit Type -[facility] Routine Vi sit Discipline -Long-Term Problems Problem Start Date Status Goals Interventions Wound Care and/or Skin Problems Disciplines: Long-Term 01/20/2021 Active 1 goal linked to scheduled/documented intervention 1 goal intervention scheduled/documented in this visit Assess and Instruct Home Visit Disciplines: Long-Term 01/20/2021 Active 1 goal linked to scheduled/documented intervention 4 goal interventions scheduled/documented in this visit Medication Management Disciplines: Long-Term 01/20/2021 Active 1 goal linked to scheduled/documented intervention 1 goal intervention scheduled/documented in this visit Pain Management Disciplines: Long-Term 01/20/2021 Active 1 goal linked to scheduled/documented [...] Management Goal:Pain Completed [facility] Visit Details Visit Type -[facility] Star t of Care Discipline -Long-Term Problems Problem Start Date Status Goals Interventions Assess and Instruct Home Visit Disciplines: Long-Term 01/20/2021 Active 1 goal linked to scheduled/documented intervention 4 goal interventions scheduled/documented in this visit Medication Management Disciplines: Long-Term 01/20/2021 Active 1 goal linked to scheduled/documented intervention 1 goal intervention scheduled/documented in this visit Pain Management Disciplines: Long-Term 01/20/2021 Active 1 goal linked to scheduled/documented [...] Management Goal:Pain Scheduled [facility]* Visit Details Visit Type -SN HH Routine Vi sit Discipline -Long-Term Problems Problem Start Date Status Goals Interventions Wound Care and/or Skin Problems Disciplines: Long-Term 01/20/2021 Active 1 goal linked to scheduled/documented intervention 1 goal intervention scheduled/documented in this visit Assess and Instruct Home Visit Disciplines: Long-Term 01/20/2021 Active 1 goal linked to scheduled/documented intervention 4 goal interventions scheduled/documented in this visit Medication Management Disciplines: Long-Term 01/20/2021 Active 1 goal linked to scheduled/documented intervention 1 goal intervention scheduled/documented in this visit Pain Management Disciplines: Long-Term 01/20/2021 Active 1 goal linked to scheduled/documented [...] Management Goal:Pain Completed documented in this encounter [facility]'s home Plan of care note* Visit Details Visit Type -SN HH Routine Vi sit Discipline -Long-Term Problems Problem Start Date Status Goals Interventions Assess and Instruct Home Visit Disciplines: Long-Term 01/20/2021 Active 1 goal linked to scheduled/documented intervention 4 goal interventions scheduled/documented in this visit Medication Management Disciplines: Long-Term 01/20/2021 Active 1 goal linked to scheduled/documented intervention 1 goal intervention scheduled/documented in this visit Pain Management Disciplines: Long-Term 01/20/2021 Active 1 goal linked to scheduled/documented [...] Management Goal:Pain Completed [facility] Visit Details Visit Type -SN HH Routine Vi sit Discipline -Long-Term Problems Problem Start Date Status Goals Interventions Wound Care and/or Skin Problems Disciplines: Long-Term 01/20/2021 Active 1 goal linked to scheduled/documented intervention 1 goal intervention scheduled/documented in this visit Assess and Instruct Home Visit Disciplines: Long-Term 01/20/2021 Active 1 goal linked to scheduled/documented intervention 4 goal interventions scheduled/documented in this visit Medication Management Disciplines: Long-Term 01/20/2021 Active 1 goal linked to scheduled/documented intervention 1 goal intervention scheduled/documented in this visit Pain Management Disciplines: Long-Term 01/20/2021 Active 1 goal linked to scheduled/documented [...] Management Goal:Pain Completed [facility]* Visit Details Visit Type -[facility] Routine Vi sit Discipline -Long-Term Problems Problem Start Date Status Goals Interventions Wound Care and/or Skin Problems Disciplines: Long-Term 01/20/2021 Active 1 goal linked to scheduled/documented intervention 1 goal intervention scheduled/documented in this visit Assess and Instruct Home Visit Disciplines: Long-Term 01/20/2021 Active 1 goal linked to scheduled/documented intervention 4 goal interventions scheduled/documented in this visit Medication Management Disciplines: Long-Term 01/20/2021 Active 1 goal linked to scheduled/documented intervention 1 goal intervention scheduled/documented in this visit Pain Management Disciplines: Long-Term 01/20/2021 Active 1 goal linked to scheduled/documented [...] Management Goal:Pain Completed [facility]* Visit Details Visit Type -[facility] Routine Vi sit Discipline -Long-Term Problems Problem Start Date Status Goals Interventions Wound Care and/or Skin Problems Disciplines: Long-Term 01/20/2021 Active 1 goal linked to scheduled/documented intervention 1 goal intervention scheduled/documented in this visit Assess and Instruct Home Visit Disciplines: Long-Term 01/20/2021 Active 1 goal linked to scheduled/documented intervention 4 goal interventions scheduled/documented in this visit Medication Management Disciplines: Long-Term 01/20/2021 Active 1 goal linked to scheduled/documented intervention 1 goal intervention scheduled/documented in this visit Pain Management Disciplines: Long-Term 01/20/2021 Active 1 goal linked to scheduled/documented [...] Management Goal:Pain Completed [facility] [facility] Visit Details Visit Type -SN HH Routine Vi sit Discipline -Long-Term Problems Problem Start Date Status Goals Interventions Wound Care and/or Skin Problems Disciplines: Long-Term 01/20/2021 Active 1 goal linked to scheduled/documented intervention 1 goal intervention scheduled/documented in this visit Assess and Instruct Home Visit Disciplines: Long-Term 01/20/2021 Active 1 goal linked to scheduled/documented intervention 4 goal interventions scheduled/documented in this visit Medication Management Disciplines: Long-Term 01/20/2021 Active 1 goal linked to scheduled/documented intervention 1 goal intervention scheduled/documented in this visit Pain Management Disciplines: Long-Term 01/20/2021 Active 1 goal linked to scheduled/documented [...] Type -SN HH Routine Vi sit Discipline -Long-Term Problems Problem Start Date Status Goals Interventions Wound Care and/or Skin Problems Disciplines: Long-Term 01/20/2021 Active 1 goal linked to scheduled/documented intervention 1 goal intervention scheduled/documented in this visit Assess and Instruct Home Visit Disciplines: Long-Term 01/20/2021 Active 1 goal linked to scheduled/documented intervention 4 goal interventions scheduled/documented in this visit Medication Management Disciplines: Long-Term 01/20/2021 Active 1 goal linked to scheduled/documented intervention 1 goal intervention scheduled/documented in this visit Pain Management Disciplines: Long-Term 01/20/2021 Active 1 goal linked to scheduled/documented [...] Type -SN HH Routine Vi sit Discipline -Long-Term Problems Problem Start Date Status Goals Interventions Wound Care and/or Skin Problems Disciplines: Long-Term 01/20/2021 Active 1 goal linked to scheduled/documented intervention 1 goal intervention scheduled/documented in this visit Assess and Instruct Home Visit Disciplines: Long-Term 01/20/2021 Active 1 goal linked to scheduled/documented intervention 4 goal interventions scheduled/documented in this visit Medication Management Disciplines: Long-Term 01/20/2021 Active 1 goal linked to scheduled/documented intervention 1 goal intervention scheduled/documented in this visit Pain Management Disciplines: Long-Term 01/20/2021 Active 1 goal linked to scheduled/documented [...] Management Goal:[facility] Visit Details Visit Type -SN HH Routine Vi sit Discipline -Long-Term Problems Problem Start Date Status Goals Interventions Assess and Instruct Home Visit Disciplines: Long-Term 01/20/2021 Active 1 goal linked to scheduled/documented intervention 4 goal interventions scheduled/documented in this visit Medication Management Disciplines: Long-Term 01/20/2021 Active 1 goal linked to scheduled/documented intervention 1 goal intervention scheduled/documented in this visit Pain Management Disciplines: Long-Term 01/20/2021 Active 1 goal linked to scheduled/documented [...] Type -SN HH OASIS Rece rt Discipline -Long-Term Problems Problem Start Date Status Goals Interventions Wound Care and/or Skin Problems Disciplines: Long-Term 01/20/2021 Active 1 goal linked to scheduled/documented intervention 1 goal intervention scheduled/documented in this visit Assess and Instruct Home Visit Disciplines: Long-Term 01/20/2021 Active 1 goal linked to scheduled/documented intervention 4 goal interventions scheduled/documented in this visit Medication Management Disciplines: Long-Term 01/20/2021 Active 1 goal linked to scheduled/documented intervention 1 goal intervention scheduled/documented in this visit Pain Management Disciplines: Long-Term 01/20/2021 Active 1 goal linked to scheduled/documented [...] Management Goal:Pain [facility] Visit Details Visit Type -SN Missed Visit Discipline -Long-Term Problems Problem Start Date Status Goals Interventions Assess and Instruct Home Visit Disciplines: Long-Term 01/20/2021 Active 1 goal linked to scheduled/documented intervention 4 goal interventions scheduled/documented in this visit Medication Management Disciplines: Long-Term 01/20/2021 Active 1 goal linked to scheduled/documented intervention 1 goal intervention scheduled/documented in this visit Pain Management Disciplines: Long-Term 01/20/2021 Active 1 goal linked to scheduled/documented [...] [facility] Goal:[facility] Visit Details Visit Type -SN HH Routine Vi sit Discipline -Long-Term Problems Problem Start Date Status Goals Interventions Wound Care and/or Skin Problems Disciplines: Long-Term 01/20/2021 Active 1 goal linked to scheduled/documented intervention 1 goal intervention scheduled/documented in this visit Assess and Instruct Home Visit Disciplines: Long-Term 01/20/2021 Active 1 goal linked to scheduled/documented intervention 4 goal interventions scheduled/documented in this visit Medication Management Disciplines: Long-Term 01/20/2021 Active 1 goal linked to scheduled/documented intervention 1 goal intervention scheduled/documented in this visit Pain Management Disciplines: Long-Term 01/20/2021 Active 1 goal linked to scheduled/documented [...] Management Goal:Pain [facility] Visit Details Visit Type -SN HH OASIS Rece rt Discipline -Long-Term Problems Problem Start Date Status Goals Interventions Wound Care and/or Skin Problems Disciplines: Long-Term 01/20/2021 Active 1 goal linked to scheduled/documented intervention 1 goal intervention scheduled/documented in this visit Assess and Instruct Home Visit Disciplines: Long-Term 01/20/2021 Active 1 goal linked to scheduled/documented intervention 4 goal interventions scheduled/documented in this visit Medication Management Disciplines: Long-Term 01/20/2021 Active 1 goal linked to scheduled/documented intervention 1 goal intervention scheduled/documented in this visit Pain Management Disciplines: Long-Term 01/20/2021 Active 1 goal linked to scheduled/documented [...] Management Goal:Pain Com[facility] Visit Details Visit Type -SN HH Routine Vi sit Discipline -Long-Term Problems Problem Start Date Status Goals Interventions Wound Care and/or Skin Problems Disciplines: Long-Term 01/20/2021 Active 1 goal linked to scheduled/documented intervention 1 goal intervention scheduled/documented in this visit Assess and Instruct Home Visit Disciplines: Long-Term 01/20/2021 Active 1 goal linked to scheduled/documented intervention 4 goal interventions scheduled/documented in this visit Medication Management Disciplines: Long-Term 01/20/2021 Active 1 goal linked to scheduled/documented intervention 1 goal intervention scheduled/documented in this visit Pain Management Disciplines: Long-Term 01/20/2021 Active 1 goal linked to scheduled/documented [...] Type -SN HH Routine Vi sit Discipline -Long-Term Problems Problem Start Date Status Goals Interventions Wound Care and/or Skin Problems Disciplines: Long-Term 01/20/2021 Active 1 goal linked to scheduled/documented intervention 1 goal intervention scheduled/documented in this visit Assess and Instruct Home Visit Disciplines: Long-Term 01/20/2021 Active 1 goal linked to scheduled/documented intervention 4 goal interventions scheduled/documented in this visit Medication Management Disciplines: Long-Term 01/20/2021 Active 1 goal linked to scheduled/documented intervention 1 goal intervention scheduled/documented in this visit Pain Management Disciplines: Long-Term 01/20/2021 Active 1 goal linked to scheduled/documented [...] Management Goal:Pain Com[facility] Visit Details Visit Type -SN Missed Visit Discipline -Long-Term Problems Problem Start Date Status Goals Interventions Assess and Instruct Home Visit Disciplines: Long-Term 01/20/2021 Active 1 goal linked to scheduled/documented intervention 4 goal interventions scheduled/documented in this visit Medication Management Disciplines: Long-Term 01/20/2021 Active 1 goal linked to scheduled/documented intervention 1 goal intervention scheduled/documented in this visit Pain Management Disciplines: Long-Term 01/20/2021 Active 1 goal linked to scheduled/documented [...] Management Goal:Pain Scheduled [facility] Visit Details Visit Type -SN HH Routine Vi sit Discipline -Long-Term Problems Problem Start Date Status Goals Interventions Wound Care and/or Skin Problems Disciplines: Long-Term 01/20/2021 Active 1 goal linked to scheduled/documented intervention 1 goal intervention scheduled/documented in this visit Assess and Instruct Home Visit Disciplines: Long-Term 01/20/2021 Active 1 goal linked to scheduled/documented intervention 4 goal interventions scheduled/documented in this visit Medication Management Disciplines: Long-Term 01/20/2021 Active 1 goal linked to scheduled/documented intervention 1 goal intervention scheduled/documented in this visit Pain Management Disciplines: Long-Term 01/20/2021 Active 1 goal linked to scheduled/documented [...] Management Goal:Pain Com[facility] Visit Details Visit Type -SN HH Routine Vi sit Discipline -Long-Term Problems Problem Start Date Status Goals Interventions Wound Care and/or Skin Problems Disciplines: Long-Term 01/20/2021 Active 1 goal linked to scheduled/documented intervention 1 goal intervention scheduled/documented in this visit Assess and Instruct Home Visit Disciplines: Long-Term 01/20/2021 Active 1 goal linked to scheduled/documented intervention 4 goal interventions scheduled/documented in this visit Medication Management Disciplines: Long-Term 01/20/2021 Active 1 goal linked to scheduled/documented intervention 1 goal intervention scheduled/documented in this visit Pain Management Disciplines: Long-Term 01/20/2021 Active 1 goal linked to scheduled/documented [...] Management Goal:Pain Completed [facility] Visit Details Visit Type -SN HH OASIS Rece rt Discipline -Long-Term Problems Problem Start Date Status Goals Interventions Wound Care and/or Skin Problems Disciplines: Long-Term 01/20/2021 Active 1 goal linked to scheduled/documented intervention 1 goal intervention scheduled/documented in this visit Assess and Instruct Home Visit Disciplines: Long-Term 01/20/2021 Active 1 goal linked to scheduled/documented intervention 4 goal interventions scheduled/documented in this visit Medication Management Disciplines: Long-Term 01/20/2021 Active 1 goal linked to scheduled/documented intervention 1 goal intervention scheduled/documented in this visit Pain Management Disciplines: Long-Term 01/20/2021 Active 1 goal linked to scheduled/documented [...] Management Goal:Pain Completed [facility] Visit Details Visit Type -SN HH OASIS Rece rt Discipline -Long-Term Problems Problem Start Date Status Goals Interventions Wound Care and/or Skin Problems Disciplines: Long-Term 01/20/2021 Active 1 goal linked to scheduled/documented intervention 1 goal intervention scheduled/documented in this visit Assess and Instruct Home Visit Disciplines: Long-Term 01/20/2021 Active 1 goal linked to scheduled/documented intervention 4 goal interventions scheduled/documented in this visit Medication Management Disciplines: Long-Term 01/20/2021 Active 1 goal linked to scheduled/documented intervention 1 goal intervention scheduled/documented in this visit Pain Management Disciplines: Long-Term 01/20/2021 Active 1 goal linked to scheduled/documented [...] Management Goal:Pain Completed [facility] Visit Details Visit Type -SN HH Routine Vi sit Discipline -Long-Term Problems Problem Start Date Status Goals Interventions Wound Care and/or Skin Problems Disciplines: Long-Term 01/20/2021 Active 1 goal linked to scheduled/documented intervention 1 goal intervention scheduled/documented in this visit Assess and Instruct Home Visit Disciplines: Long-Term 01/20/2021 Active 1 goal linked to scheduled/documented intervention 4 goal interventions scheduled/documented in this visit Medication Management Disciplines: Long-Term 01/20/2021 Active 1 goal linked to scheduled/documented intervention 1 goal intervention scheduled/documented in this visit Pain Management Disciplines: Long-Term 01/20/2021 Active 1 goal linked to scheduled/documented [...] Management Goal:Pain Completed [facility] Visit Details Visit Type -SN HH Routine Vi sit Discipline -Long-Term Problems Problem Start Date Status Goals Interventions Wound Care and/or Skin Problems Disciplines: Long-Term 01/20/2021 Active 1 goal linked to scheduled/documented intervention 1 goal intervention scheduled/documented in this visit Assess and Instruct Home Visit Disciplines: Long-Term 01/20/2021 Active 1 goal linked to scheduled/documented intervention 4 goal interventions scheduled/documented in this visit Medication Management Disciplines: Long-Term 01/20/2021 Active 1 goal linked to scheduled/documented intervention 1 goal intervention scheduled/documented in this visit Pain Management Disciplines: Long-Term 01/20/2021 Active 1 goal linked to scheduled/documented [...] Management Goal:Pain Completed [facility] Visit Details Visit Type -SN HH Routine Vi sit Discipline -Long-Term Problems Problem Start Date Status Goals Interventions Wound Care and/or Skin Problems Disciplines: Long-Term 01/20/2021 Active 1 goal linked to scheduled/documented intervention 1 goal intervention scheduled/documented in this visit Assess and Instruct Home Visit Disciplines: Long-Term 01/20/2021 Active 1 goal linked to scheduled/documented intervention 4 goal interventions scheduled/documented in this visit Medication Management Disciplines: Long-Term 01/20/2021 Active 1 goal linked to scheduled/documented intervention 1 goal intervention scheduled/documented in this visit Pain Management Disciplines: Long-Term 01/20/2021 Active 1 goal linked to scheduled/documented [...] Management Goal:Pain Completed [facility] Visit Details Visit Type -SN HH Routine Vi sit Discipline -Long-Term Problems Problem Start Date Status Goals Interventions Wound Care and/or Skin Problems Disciplines: Long-Term 01/20/2021 Active 1 goal linked to scheduled/documented intervention 1 goal intervention scheduled/documented in this visit Assess and Instruct Home Visit Disciplines: Long-Term 01/20/2021 Active 1 goal linked to scheduled/documented intervention 4 goal interventions scheduled/documented in this visit Medication Management Disciplines: Long-Term 01/20/2021 Active 1 goal linked to scheduled/documented intervention 1 goal intervention scheduled/documented in this visit Pain Management Disciplines: Long-Term 01/20/2021 Active 1 goal linked to scheduled/documented [...] Management Goal:Pain Completed [facility] Visit Details Visit Type -SN HH Routine Vi sit Discipline -Long-Term Problems Problem Start Date Status Goals Interventions Wound Care and/or Skin Problems Disciplines: Long-Term 01/20/2021 Active 1 goal linked to scheduled/documented intervention 1 goal intervention scheduled/documented in this visit Assess and Instruct Home Visit Disciplines: Long-Term 01/20/2021 Active 1 goal linked to scheduled/documented intervention 4 goal interventions scheduled/documented in this visit Medication Management Disciplines: Long-Term 01/20/2021 Active 1 goal linked to scheduled/documented intervention 1 goal intervention scheduled/documented in this visit Pain Management Disciplines: Long-Term 01/20/2021 Active 1 goal linked to scheduled/documented [...] Management Goal:Pain Completed [facility] Visit Details Visit Type -SN HH Routine Vi sit Discipline -Long-Term Problems Problem Start Date Status Goals Interventions Wound Care and/or Skin Problems Disciplines: Long-Term 01/20/2021 Active 1 goal linked to scheduled/documented intervention 1 goal intervention scheduled/documented in this visit Assess and Instruct Home Visit Disciplines: Long-Term 01/20/2021 Active 1 goal linked to scheduled/documented intervention 4 goal interventions scheduled/documented in this visit Medication Management Disciplines: Long-Term 01/20/2021 Active 1 goal linked to scheduled/documented intervention 1 goal intervention scheduled/documented in this visit Pain Management Disciplines: Long-Term 01/20/2021 Active 1 goal linked to scheduled/documented [...] Management Goal:Pain Completed [facility] Visit Details Visit Type -SN HH Routine Vi sit Discipline -Long-Term Problems Problem Start Date Status Goals Interventions Wound Care and/or Skin Problems Disciplines: Long-Term 01/20/2021 Active 1 goal linked to scheduled/documented intervention 1 goal intervention scheduled/documented in this visit Assess and Instruct Home Visit Disciplines: Long-Term 01/20/2021 Active 1 goal linked to scheduled/documented intervention 4 goal interventions scheduled/documented in this visit Medication Management Disciplines: Long-Term 01/20/2021 Active 1 goal linked to scheduled/documented intervention 1 goal intervention scheduled/documented in this visit Pain Management Disciplines: Long-Term 01/20/2021 Active 1 goal linked to scheduled/documented [...] Management Goal:Pain Com[facility] Visit Details Visit Type -SN HH OASIS Guerrero sfer Discipline -Long-Term Problems Problem Start Date Status Goals Interventions Assess and Instruct Home Visit Disciplines: Long-Term 01/20/2021 Active 1 goal linked to scheduled/documented intervention 4 goal interventions scheduled/documented in this visit Medication Management Disciplines: Long-Term 01/20/2021 Active 1 goal linked to scheduled/documented intervention 1 goal intervention scheduled/documented in this visit Pain Management Disciplines: Long-Term 01/20/2021 Active 1 goal linked to scheduled/documented [...] HH OASIS Resu mption of Care Discipline -Long-Term Problems Problem Start Date Status Goals Interventions Wound Care and/or Skin Problems Disciplines: Long-Term 01/20/2021 Active 1 goal linked to scheduled/documented intervention 1 goal intervention scheduled/documented in this visit Assess and Instruct Home Visit Disciplines: Long-Term 01/20/2021 Active 1 goal linked to scheduled/documented intervention 4 goal interventions scheduled/documented in this visit Medication Management Disciplines: Long-Term 01/20/2021 Active 1 goal linked to scheduled/documented intervention 1 goal intervention scheduled/documented in this visit Pain Management Disciplines: Long-Term 01/20/2021 Active 1 goal linked to scheduled/documented [...] Management Goal:Pain Com[facility] Visit Details Visit Type -SN HH OASIS Resu mption of Care Discipline -Long-Term Problems Problem Start Date Status Goals Interventions Wound Care and/or Skin Problems Disciplines: Long-Term 01/20/2021 Active 1 goal linked to scheduled/documented intervention 1 goal intervention scheduled/documented in this visit Assess and Instruct Home Visit Disciplines: Long-Term 01/20/2021 Active 1 goal linked to scheduled/documented intervention 4 goal interventions scheduled/documented in this visit Medication Management Disciplines: Long-Term 01/20/2021 Active 1 goal linked to scheduled/documented intervention 1 goal intervention scheduled/documented in this visit Pain Management Disciplines: Long-Term 01/20/2021 Active 1 goal linked to scheduled/documented [...] Management Goal:Pain Com[facility] Visit Details Visit Type -SN HH Routine Vi sit Discipline -Long-Term Problems Problem Start Date Status Goals Interventions Wound Care and/or Skin Problems Disciplines: Long-Term 01/20/2021 Active 1 goal linked to scheduled/documented intervention 1 goal intervention scheduled/documented in this visit Assess and Instruct Home Visit Disciplines: Long-Term 01/20/2021 Active 1 goal linked to scheduled/documented intervention 4 goal interventions scheduled/documented in this visit Medication Management Disciplines: Long-Term 01/20/2021 Active 1 goal linked to scheduled/documented intervention 1 goal intervention scheduled/documented in this visit Pain Management Disciplines: Long-Term 01/20/2021 Active 1 goal linked to scheduled/documented [...] Management Goal:Pain Completed [facility] Visit Details Visit Type -SN HH OASIS Rece rt Discipline -Long-Term Problems Problem Start Date Status Goals Interventions Assess and Instruct Home Visit Disciplines: Long-Term 01/20/2021 Active 1 goal linked to scheduled/documented intervention 4 goal interventions scheduled/documented in this visit Medication Management Disciplines: Long-Term 01/20/2021 Active 1 goal linked to scheduled/documented intervention 1 goal intervention scheduled/documented in this visit Pain Management Disciplines: Long-Term 01/20/2021 Active 1 goal linked to scheduled/documented [...] Management Goal:Pain [facility]uled [facility] Visit Details Visit Type -SN HH OASIS Rece rt Discipline -Long-Term Problems Problem Start Date Status Goals Interventions Assess and Instruct Home Visit Disciplines: Long-Term 01/20/2021 Active 1 goal linked to scheduled/documented intervention 4 goal interventions scheduled/documented in this visit Medication Management Disciplines: Long-Term 01/20/2021 Active 1 goal linked to scheduled/documented intervention 1 goal intervention scheduled/documented in this visit Pain Management Disciplines: Long-Term 01/20/2021 Active 1 goal linked to scheduled/documented [...] Management Goal:Pain Scheduled [facility] Visit Details Visit Type -SN HH OASIS Resu mption of Care Discipline -Long-Term Problems Problem Start Date Status Goals Interventions Wound Care and/or Skin Problems Disciplines: Long-Term 01/20/2021 Active 1 goal linked to scheduled/documented intervention 1 goal intervention scheduled/documented in this visit Assess and Instruct Home Visit Disciplines: Long-Term 01/20/2021 Active 1 goal linked to scheduled/documented intervention 4 goal interventions scheduled/documented in this visit Medication Management Disciplines: Long-Term 01/20/2021 Active 1 goal linked to scheduled/documented intervention 1 goal intervention scheduled/documented in this visit Pain Management Disciplines: Long-Term 01/20/2021 Active 1 goal linked to scheduled/documented [...] Management Goal:Pain Com[facility] Visit Details Visit Type -SN HH Routine Vi sit Discipline -Long-Term Problems Problem Start Date Status Goals Interventions Wound Care and/or Skin Problems Disciplines: Long-Term 01/20/2021 Active 1 goal linked to scheduled/documented intervention 1 goal intervention scheduled/documented in this visit Assess and Instruct Home Visit Disciplines: Long-Term 01/20/2021 Active 1 goal linked to scheduled/documented intervention 4 goal interventions scheduled/documented in this visit Medication Management Disciplines: Long-Term 01/20/2021 Active 1 goal linked to scheduled/documented intervention 1 goal intervention scheduled/documented in this visit Pain Management Disciplines: Long-Term 01/20/2021 Active 1 goal linked to scheduled/documented [...] Management Goal:Pain Completed [facility] Visit Details Visit Type - HH Routine Vi sit Discipline -Long-Term Problems Problem Start Date Status Goals Interventions Wound Care and/or Skin Problems Disciplines: Long-Term 01/20/2021 Active 1 goal linked to scheduled/documented intervention 1 goal intervention scheduled/documented in this visit Assess and Instruct Home Visit Disciplines: Long-Term 01/20/2021 Active 1 goal linked to scheduled/documented intervention 4 goal interventions scheduled/documented in this visit Medication Management Disciplines: Long-Term 01/20/2021 Active 1 goal linked to scheduled/documented intervention 1 goal intervention scheduled/documented in this visit Pain Management Disciplines: Long-Term 01/20/2021 Active 1 goal linked to scheduled/documented [...] Management Goal:Pain Completed [facility] Visit Details Visit Type -SN HH Routine Vi sit Discipline -Long-Term Problems Problem Start Date Status Goals Interventions Wound Care and/or Skin Problems Disciplines: Long-Term 01/20/2021 Active 1 goal linked to scheduled/documented intervention 1 goal intervention scheduled/documented in this visit Assess and Instruct Home Visit Disciplines: Long-Term 01/20/2021 Active 1 goal linked to scheduled/documented intervention 4 goal interventions scheduled/documented in this visit Medication Management Disciplines: Long-Term 01/20/2021 Active 1 goal linked to scheduled/documented intervention 1 goal intervention scheduled/documented in this visit Pain Management Disciplines: Long-Term 01/20/2021 Active 1 goal linked to scheduled/documented [...] Management Goal:Pain Completed [facility] Visit Details Visit Type -SN HH Routine Vi sit Discipline -Long-Term Problems Problem Start Date Status Goals Interventions Assess and Instruct Home Visit Disciplines: Long-Term 01/20/2021 Active 1 goal linked to scheduled/documented intervention 4 goal interventions scheduled/documented in this visit Medication Management Disciplines: Long-Term 01/20/2021 Active 1 goal linked to scheduled/documented intervention 1 goal intervention scheduled/documented in this visit Pain Management Disciplines: Long-Term 01/20/2021 Active 1 goal linked to scheduled/documented [...] Management Goal:Pain Completed [facility] Visit Details Visit Type -SN HH Routine Vi sit Discipline -Long-Term Problems Problem Start Date Status Goals Interventions Assess and Instruct Home Visit Disciplines: Long-Term 01/20/2021 Active 1 goal linked to scheduled/documented intervention 4 goal interventions scheduled/documented in this visit Medication Management Disciplines: Long-Term 01/20/2021 Active 1 goal linked to scheduled/documented intervention 1 goal intervention scheduled/documented in this visit Pain Management Disciplines: Long-Term 01/20/2021 Active 1 goal linked to scheduled/documented [...] Management Goal:Pain Completed [facility] Visit Details Visit Type -ENTERPRISE SYSTEMS ARCHITECT Routine Visi t Discipline -Physical Therapy Problems [...] 95% of instruction. [facility] Visit Details Visit Type -ENTER[employer]ISE SYSTEMS ARCHITECT Routine Visi t Discipline -Physical Therapy Problems [...] 95% of instruction. [facility] Visit Details Visit Type -SN HH Non-OASIS/ Discipline DC Discipline -Long-Term Problems Problem Start Date Status Goals Interventions Assess and Instruct Home Visit Disciplines: Long-Term 01/20/2021 Resolved on 09/07/2021 1 goal linked to scheduled/documented intervention 4 goal interventions scheduled/documented in this visit Medication Management Disciplines: Long-Term 01/20/2021 Resolved on 09/07/2021 1 goal linked to scheduled/documented intervention 1 goal intervention scheduled/documented in this visit Pain Management Disciplines: Long-Term 01/20/2021 Resolved on 09/07/2021 1 goal linked [...] Management Goal:Pain Scheduled [facility] Visit Details Visit Type -ENTER[employer]ISE SYSTEMS ARCHITECT Routine Visi t Discipline -Physical Therapy Problems [...] 90% of instruction. [facility] Visit Details Visit Type -ENTER[employer]ISE SYSTEMS ARCHITECT Routine Visi t Discipline -Physical Therapy Problems [...] 90% of instruction. documented in this encounter [facility] Plan [facility]* Visit Details Visit Type -ENTER[employer] ARCHITECT Routine Visi t Discipline -Physical Therapy Problems [...] HH OASIS Star t of Care Discipline -Long-Term Problems Problem Start Date Status Goals Interventions Assess and Instruct Home Visit Disciplines: Long-Term 05/01/2022 Active 1 goal linked to scheduled/documented intervention 4 goal interventions scheduled/documented in this visit Medication Management Disciplines: Long-Term 05/01/2022 Active 1 goal linked to scheduled/documented intervention 1 goal intervention scheduled/documented in this visit Pain Management Disciplines: Long-Term 05/01/2022 Active 1 goal linked to scheduled/documented intervention 1 goal intervention scheduled/documented in this visit Wound Care and/or Skin Problems Disciplines: Long-Term 05/01/2022 Active 1 goal linked to scheduled/documented intervention 1 goal intervention scheduled/documented in this visit Cardiac Disciplines: Long-Term 05/01/2022 Active 2 goals linked to scheduled/documented interventions 2 goal interventions scheduled/documented in this visit Gastrointestinal Disciplines: Long-Term 05/01/2022 Active 1 goal linked to scheduled/documented intervention 1 goal intervention scheduled/documented in this visit Respiratory Disciplines: Long-Term 05/01/2022 Active 1 goal linked to scheduled/documented [...] 75% of instruction. [facility] Visit [...] may be best. [facility] Visit Details Visit Type -SN HH OASIS Star t of Care Discipline -Long-Term Problems Problem Start Date Status Goals Interventions Assess and Instruct Home Visit Disciplines: Long-Term 05/01/2022 Active 1 goal linked to scheduled/documented intervention 4 goal interventions scheduled/documented in this visit Medication Management Disciplines: Long-Term 05/01/2022 Active 1 goal linked to scheduled/documented intervention 1 goal intervention scheduled/documented in this visit Pain Management Disciplines: Long-Term 05/01/2022 Active 1 goal linked to scheduled/documented intervention 1 goal intervention scheduled/documented in this visit Wound Care and/or Skin Problems Disciplines: Long-Term 05/01/2022 Active 1 goal linked to scheduled/documented intervention 1 goal intervention scheduled/documented in this visit Cardiac Disciplines: Long-Term 05/01/2022 Active 2 goals linked to scheduled/documented interventions 2 goal interventions scheduled/documented in this visit Gastrointestinal Disciplines: Long-Term 05/01/2022 Active 1 goal linked to scheduled/documented intervention 1 goal intervention scheduled/documented in this visit Respiratory Disciplines: Long-Term 05/01/2022 Active 1 goal linked to scheduled/documented [...] 75% of instruction. 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 Pt [...] 90% of instruction. [facility] Visit Details Visit Type -SN HH Routine Vi sit Discipline -Long-Term Problems Problem Start Date Status Goals Interventions Assess and Instruct Home Visit Disciplines: Long-Term 05/01/2022 Active 1 goal linked to scheduled/documented intervention 4 goal interventions scheduled/documented in this visit Medication Management Disciplines: Long-Term 05/01/2022 Active 1 goal linked to scheduled/documented intervention 1 goal intervention scheduled/documented in this visit Pain Management Disciplines: Long-Term 05/01/2022 Active 1 goal linked to scheduled/documented intervention 1 goal intervention scheduled/documented in this visit Wound Care and/or Skin Problems Disciplines: Long-Term 05/01/2022 Active 1 goal linked to scheduled/documented intervention 1 goal intervention scheduled/documented in this visit Cardiac Disciplines: Long-Term 05/01/2022 Active 2 goals linked to scheduled/documented interventions 2 goal interventions scheduled/documented in this visit Gastrointestinal Disciplines: Long-Term 05/01/2022 Active 1 goal linked to scheduled/documented intervention 1 goal intervention scheduled/documented in this visit Respiratory Disciplines: Long-Term 05/01/2022 Active 1 goal linked to scheduled/documented [...] storage of oxygen. [facility] Visit Details [...] Care Plan Scheduled [facility] Visit Details Visit Type -SN HH OASIS Star t of Care Discipline -Long-Term Problems Problem Start Date Status Goals Interventions Assess and Instruct Home Visit Disciplines: Long-Term 05/01/2022 Active 1 goal linked to scheduled/documented intervention 4 goal interventions scheduled/documented in this visit Medication Management Disciplines: Long-Term 05/01/2022 Active 1 goal linked to scheduled/documented intervention 1 goal intervention scheduled/documented in this visit Pain Management Disciplines: Long-Term 05/01/2022 Active 1 goal linked to scheduled/documented intervention 1 goal intervention scheduled/documented in this visit Wound Care and/or Skin Problems Disciplines: Long-Term 05/01/2022 Active 1 goal linked to scheduled/documented intervention 1 goal intervention scheduled/documented in this visit Cardiac Disciplines: Long-Term 05/01/2022 Active 2 goals linked to scheduled/documented interventions 2 goal interventions scheduled/documented in this visit Gastrointestinal Disciplines: Long-Term 05/01/2022 Active 1 goal linked to scheduled/documented intervention 1 goal intervention scheduled/documented in this visit Respiratory Disciplines: Long-Term 05/01/2022 Active 1 goal linked to scheduled/documented [...] of care note* Visit Details Visit Type -[employer]ISE [employer] ARCHITECT Routine Visi t Discipline -Physical Therapy Problems [...] 100% of instruction. [facility] Visit Details Visit Type -SN HH Routine Vi sit Discipline -Long-Term Problems Problem Start Date Status Goals Interventions Assess and Instruct Home Visit Disciplines: Long-Term 05/01/2022 Active 1 goal linked to scheduled/documented intervention 4 goal interventions scheduled/documented in this visit Medication Management Disciplines: Long-Term 05/01/2022 Active 1 goal linked to scheduled/documented intervention 1 goal intervention scheduled/documented in this visit Pain Management Disciplines: Long-Term 05/01/2022 Active 1 goal linked to scheduled/documented intervention 1 goal intervention scheduled/documented in this visit Wound Care and/or Skin Problems Disciplines: Long-Term 05/01/2022 Active 1 goal linked to scheduled/documented intervention 1 goal intervention scheduled/documented in this visit Cardiac Disciplines: Long-Term 05/01/2022 Active 2 goals linked to scheduled/documented interventions 2 goal interventions scheduled/documented in this visit Gastrointestinal Disciplines: Long-Term 05/01/2022 Active 1 goal linked to scheduled/documented intervention 1 goal intervention scheduled/documented in this visit Respiratory Disciplines: Long-Term 05/01/2022 Active 1 goal linked to scheduled/documented intervention 1 goal intervention scheduled/documented in this visit Wound Care and/or Skin Problems Disciplines: Long-Term 05/12/2022 Active 1 goal linked to scheduled/documented [...] pt tolerated well. 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 Pt [...] 90% of instruction. [facility] Visit [...] realizes that he needs to use the coffee bar attendant instead of bending over. [facility] Visit Details Visit Type -[employer] ARCHITECT Routine Visi t Discipline -Physical Therapy Problems [...] 100% of instruction. [facility] Visit Details Visit Type -[employer] SYSTEM[employer] ARCHITECT Routine Visi t Discipline -Physical Therapy Problems [...] 100% of instruction. [facility] Visit Details Visit Type -[employer] ARCHITECT Routine Visi t Discipline -Physical Therapy Problems [...] safety precautions Skilled intervention at next visit: ENTERPRISE SYSTEMS ARCHITECT plan to continue transfer trianing for increased safety and reduce risk for falls. Home Exercise Program Problem:Home Exercise Program Goal:Home Exercise Program Completed Patient reports: fair compliance Clinician taught: patient Clinician instructed on: ENTERPRISE SYSTEMS ARCHITECT reviews standing HEP with patient. Patient demos fair recall with technique and reports fair compliance with exercise program. Patient/caregiver is able to teach back 80% of instruction. Patient with O2 donned during therex at 2L, SPO2 levels still dropped to 79% during standing therex, ENTERPRISE SYSTEMS ARCHITECT provides cues again for PLB techniques, fair carryover, SPO2 levels returned to 93%+ by end of session. patient left in chair with O2 donned with spouse present Instruct Mobility Problem:Mobility Goal:Mobility Completed Patient reports: no falls Clinician taught: patient Clinician instructed on: ENTERPRISE SYSTEMS ARCHITECT provides skilled instruct for pateint to compelte STS t/f from chair with ENTERPRISE SYSTEMS ARCHITECT CGA during for safety, max verbal cues for proper technique and safety awareness to avoid a fall, patient with one major LOB requiring Wendy from ENTER[employer] SYSTEMS ARCHITECT to prevent fall, skilled instruct for patient to complete stair training with CGA and use of grab bars, patient with poor safety awareness as noted by impulsivity, O2 tubing too short to reach garage, doffed tubing, constant cues to patient for proper breathing techniques. ENTERPRISE SYSTEMS ARCHITECT provides skilled instruct for patient to complete car transfer training with ENTER[employer]ISE SYSTEMS ARCHITECT providing demo for maximum safety, implemented wooden step to increase safety, spouse present for traiing with both patient and spouse report understanding on use of wooden step to increase safety. patient continues to demo impulsivity with all transfers and mobility, constant cues to correct. upon return to sit in chair, SPO2 levels 68%, immediately donned O2 and ENTERPRISE SYSTEMS ARCHITECT instructed patient to compelte PLB techniques, cues to continue these until SPO@ levels returned to 94%, O2 on 2L for entire session. Patient/caregiver is able to teach back 80% of instruction. [facility] Visit Details Visit Type -SN HH Routine Vi sit Discipline -Long-Term Problems Problem Start Date Status Goals Interventions Assess and Instruct Home Visit Disciplines: Long-Term 05/01/2022 Active 1 goal linked to scheduled/documented intervention 4 goal interventions scheduled/documented in this visit Medication Management Disciplines: Long-Term 05/01/2022 Active 1 goal linked to scheduled/documented intervention 1 goal intervention scheduled/documented in this visit Pain Management Disciplines: Long-Term 05/01/2022 Active 1 goal linked to scheduled/documented intervention 1 goal intervention scheduled/documented in this visit Wound Care and/or Skin Problems Disciplines: Long-Term 05/01/2022 Active 1 goal linked to scheduled/documented intervention 1 goal intervention scheduled/documented in this visit Cardiac Disciplines: Long-Term 05/01/2022 Active 2 goals linked to scheduled/documented interventions 2 goal interventions scheduled/documented in this visit Gastrointestinal Disciplines: Long-Term 05/01/2022 Active 1 goal linked to scheduled/documented intervention 1 goal intervention scheduled/documented in this visit Respiratory Disciplines: Long-Term 05/01/2022 Active 1 goal linked to scheduled/documented intervention 1 goal intervention scheduled/documented in this visit Wound Care and/or Skin Problems Disciplines: Long-Term 05/12/2022 Active 1 goal linked to scheduled/documented [...] of care note* Visit Details Visit Type -ENTER[employer] SYSTEMS ARCHITECT Routine Visi t Discipline -Physical Therapy Problems [...] safety precautions Skilled intervention at next visit: ENTER[employer]ISE SYSTEMS ARCHITECT plan to continue transfer trianing for increased safety and reduce risk for falls. Home Exercise Program Problem:Home Exercise Program Goal:Home Exercise Program Completed Patient reports: fair compliance Clinician taught: patient Clinician instructed on: ENTERPRISE SYSTEMS ARCHITECT reviews standing HEP with patient. Patient demos fair recall with technique and reports fair compliance with exercise program. Patient/caregiver is able to teach back 80% of instruction. Patient with O2 donned during therex at 2L, SPO2 levels still dropped to 79% during standing therex, ENTERPRISE SYSTEMS ARCHITECT provides cues again for PLB techniques, fair carryover, SPO2 levels returned to 93%+ by end of session. patient left in chair with O2 donned with spouse present Instruct Mobility Problem:Mobility Goal:Mobility Completed Patient reports: no falls Clinician taught: patient Clinician instructed on: ENTER[employer]ISE SYSTEMS ARCHITECT provides skilled instruct for pateint to compelte STS t/f from chair with ENTER[employer]ISE SYSTEMS ARCHITECT CGA during for safety, max verbal cues for proper technique and safety awareness to avoid a fall, patient with one major LOB requiring Wendy from ENTER[employer]ISE SYSTEMS ARCHITECT to prevent fall, skilled instruct for patient to complete stair training with CGA and use of grab bars, patient with poor safety awareness as noted by impulsivity, O2 tubing too short to reach garage, doffed tubing, constant cues to patient for proper breathing techniques. ENTERPRISE SYSTEMS ARCHITECT provides skilled instruct for patient to complete car transfer training with ENTER[employer]ISE SYSTEMS ARCHITECT providing demo for maximum safety, implemented wooden step to increase safety, spouse present for traiing with both patient and spouse report understanding on use of wooden step to increase safety. patient continues to demo impulsivity with all transfers and mobility, constant cues to correct. upon return to sit in chair, SPO2 levels 68%, immediately donned O2 and ENTERPRISE SYSTEMS ARCHITECT instructed patient to compelte PLB techniques, cues to continue these until SPO@ levels returned to 94%, O2 on 2L for entire session. Patient/caregiver is able to teach back 80% of instruction. [facility] Visit Details Visit Type -ENTER[employer] SYSTEM[employer] ARCHITECT Routine Visi t Discipline -Physical Therapy Problems [...] risk of falls. [facility] Visit Details Visit Type -SN HH Routine Vi sit Discipline -Long-Term Problems Problem Start Date Status Goals Interventions Assess and Instruct Home Visit Disciplines: Long-Term 05/01/2022 Active 1 goal linked to scheduled/documented intervention 4 goal interventions scheduled/documented in this visit Medication Management Disciplines: Long-Term 05/01/2022 Active 1 goal linked to scheduled/documented intervention 1 goal intervention scheduled/documented in this visit Pain Management Disciplines: Long-Term 05/01/2022 Active 1 goal linked to scheduled/documented intervention 1 goal intervention scheduled/documented in this visit Cardiac Disciplines: Long-Term 05/01/2022 Active 2 goals linked to scheduled/documented interventions 2 goal interventions scheduled/documented in this visit Gastrointestinal Disciplines: Long-Term 05/01/2022 Active 1 goal linked to scheduled/documented intervention 1 goal intervention scheduled/documented in this visit Respiratory Disciplines: Long-Term 05/01/2022 Active 1 goal linked to scheduled/documented [...] storage of oxygen. [facility] Visit Details Visit Type -[employer] ARCHITECT Routine Visi t Discipline -Physical Therapy Problems [...] Clinician instructed on: d/t patient back pain, ENTER[employer]ISE SYSTEMS ARCHITECT provides skilled instruct for patient to complete seated HEP instead of standing HEP to reduce pain, completed to increase activity tolerance for safe return to PLOF. Patient/caregiver is able to teach back 80% of instruction. Instruct Mobility Problem:Mobility Goal:Mobility Completed Patient reports: no falls Clinician taught: patient Clinician instructed on: ENTER[employer]ISE SYSTEMS ARCHITECT provides skilled instruct for patient to complete gait training with FWW and ENTERPRISE SYSTEMS ARCHITECT S during for safety, to increase activity tolerance, patient SPO2 levels 84% on 2L O2, cues for proper breathing techniques during seated rest break with SPO2 levels rising to 95%. Patient/caregiver is able to teach back 80% of instruction. [facility] Visit Details Visit Type -SN HH Routine Vi sit Discipline -Long-Term Problems Problem Start Date Status Goals Interventions Assess and Instruct Home Visit Disciplines: Long-Term 05/01/2022 Active 1 goal linked to scheduled/documented intervention 4 goal interventions scheduled/documented in this visit Medication Management Disciplines: Long-Term 05/01/2022 Active 1 goal linked to scheduled/documented intervention 1 goal intervention scheduled/documented in this visit Pain Management Disciplines: Long-Term 05/01/2022 Active 1 goal linked to scheduled/documented intervention 1 goal intervention scheduled/documented in this visit Cardiac Disciplines: Long-Term 05/01/2022 Active 2 goals linked to scheduled/documented interventions 2 goal interventions scheduled/documented in this visit Gastrointestinal Disciplines: Long-Term 05/01/2022 Active 1 goal linked to scheduled/documented intervention 1 goal intervention scheduled/documented in this visit Respiratory Disciplines: Long-Term 05/01/2022 Active 1 goal linked to scheduled/documented intervention 1 goal intervention scheduled/documented in this visit Wound Care and/or Skin Problems Disciplines: Long-Term 05/12/2022 Active 1 goal linked to scheduled/documented [...] barrier paste applied. [facility] Visit Details Visit Type -ENTERPRISE SYSTEMS ARCHITECT Routine Visi t Discipline -Physical Therapy Problems [...] Clinician instructed on: d/t patient back pain, ENTERPRISE SYSTEMS ARCHITECT provides skilled instruct for patient to complete seated HEP instead of standing HEP to reduce pain, completed to increase activity tolerance for safe return to PLOF. Patient/caregiver is able to teach back 80% of instruction. Instruct Mobility Problem:Mobility Goal:Mobility Completed Patient reports: no falls Clinician taught: patient Clinician instructed on: ENTERPRISE SYSTEMS ARCHITECT provides skilled instruct for patient to complete gait training with FWW and ENTERPRISE SYSTEMS ARCHITECT S during for safety, to increase activity tolerance, patient SPO2 levels 84% on 2L O2, cues for proper breathing techniques during seated rest break with SPO2 levels rising to 95%. Patient/caregiver is able to teach back 80% of instruction. [facility] Visit Details Visit Type -SN HH Routine Vi sit Discipline -Long-Term Problems Problem Start Date Status Goals Interventions Assess and Instruct Home Visit Disciplines: Long-Term 05/01/2022 Active 1 goal linked to scheduled/documented intervention 4 goal interventions scheduled/documented in this visit Medication Management Disciplines: Long-Term 05/01/2022 Active 1 goal linked to scheduled/documented intervention 1 goal intervention scheduled/documented in this visit Pain Management Disciplines: Long-Term 05/01/2022 Active 1 goal linked to scheduled/documented intervention 1 goal intervention scheduled/documented in this visit Cardiac Disciplines: Long-Term 05/01/2022 Active 2 goals linked to scheduled/documented interventions 2 goal interventions scheduled/documented in this visit Gastrointestinal Disciplines: Long-Term 05/01/2022 Active 1 goal linked to scheduled/documented intervention 1 goal intervention scheduled/documented in this visit Respiratory Disciplines: Long-Term 05/01/2022 Active 1 goal linked to scheduled/documented intervention 1 goal intervention scheduled/documented in this visit Wound Care and/or Skin Problems Disciplines: Long-Term 05/12/2022 Active 1 goal linked to scheduled/documented [...] barrier paste applied. [facility] Visit Details Visit Type -ENTERPRISE SYSTEMS ARCHITECT Routine Visi t Discipline -Physical Therapy Problems [...] of care note* Visit Details Visit Type -ENTERPRISE SYSTEMS ARCHITECT Routine Visi t Discipline -Physical Therapy Problems [...] 100% of instruction. [facility] Visit Details Visit Type -ENTERPRISE SYSTEMS ARCHITECT Routine Visi t Discipline -Physical Therapy Problems [...] reports: non compliance with hep and amb director of strategic programs taught: patient Clinician instructed on: Skilled observation [...] 100% of instruction. [facility] Visit Details [...] Care Plan Scheduled documented in this encounter [facility] Plan of care note* Visit Details Visit Type -SN HH Routine Vi sit Discipline -Long-Term Problems Problem Start Date Status Goals Interventions Assess and Instruct Home Visit Disciplines: Long-Term 05/01/2022 Active 1 goal linked to scheduled/documented intervention 4 goal interventions scheduled/documented in this visit Medication Management Disciplines: Long-Term 05/01/2022 Active 1 goal linked to scheduled/documented intervention 1 goal intervention scheduled/documented in this visit Pain Management Disciplines: Long-Term 05/01/2022 Active 1 goal linked to scheduled/documented intervention 1 goal intervention scheduled/documented in this visit Cardiac Disciplines: Long-Term 05/01/2022 Active 2 goals linked to scheduled/documented interventions 2 goal interventions scheduled/documented in this visit Gastrointestinal Disciplines: Long-Term 05/01/2022 Active 1 goal linked to scheduled/documented intervention 1 goal intervention scheduled/documented in this visit Respiratory Disciplines: Long-Term 05/01/2022 Active 1 goal linked to scheduled/documented intervention 1 goal intervention scheduled/documented in this visit Wound Care and/or Skin Problems Disciplines: Long-Term 05/12/2022 Active 1 goal linked to scheduled/documented [...] states he understands. [facility] Visit Details Visit Type -ENTERPRISE SYSTEMS ARCHITECT Routine Visi t Discipline -Physical Therapy Problems [...] reports: non compliance with hep and amb director of strategic programs taught: patient Clinician instructed on: Skilled observation [...] 100% of instruction. documented in this encounter [facility] Plan of care note* Visit Details Visit Type -SN HH OASIS Rece rt Discipline -Long-Term Problems Problem Start Date Status Goals Interventions Assess and Instruct Home Visit Disciplines: Long-Term 05/01/2022 Active 1 goal linked to scheduled/documented intervention 4 goal interventions scheduled/documented in this visit Medication Management Disciplines: Long-Term 05/01/2022 Active 1 goal linked to scheduled/documented intervention 1 goal intervention scheduled/documented in this visit Pain Management Disciplines: Long-Term 05/01/2022 Active 1 goal linked to scheduled/documented intervention 1 goal intervention scheduled/documented in this visit Respiratory Disciplines: Long-Term 05/01/2022 Active 1 goal linked to scheduled/documented intervention 1 goal intervention scheduled/documented in this visit Wound Care and/or Skin Problems Disciplines: Long-Term 05/12/2022 Active 1 goal linked to scheduled/documented [...] relief education reinforced. [facility] Visit Details Visit Type -SN HH OASIS Rece rt Discipline -Long-Term Problems Problem Start Date Status Goals Interventions Assess and Instruct Home Visit Disciplines: Long-Term 05/01/2022 Active 1 goal linked to scheduled/documented intervention 4 goal interventions scheduled/documented in this visit Medication Management Disciplines: Long-Term 05/01/2022 Active 1 goal linked to scheduled/documented intervention 1 goal intervention scheduled/documented in this visit Pain Management Disciplines: Long-Term 05/01/2022 Active 1 goal linked to scheduled/documented intervention 1 goal intervention scheduled/documented in this visit Respiratory Disciplines: Long-Term 05/01/2022 Active 1 goal linked to scheduled/documented intervention 1 goal intervention scheduled/documented in this visit Wound Care and/or Skin Problems Disciplines: Long-Term 05/12/2022 Active 1 goal linked to scheduled/documented [...] relief education reinforced. [facility] Visit Details Visit Type -SN HH Routine Vi sit Discipline -Long-Term Problems Problem Start Date Status Goals Interventions Assess and Instruct Home Visit Disciplines: Long-Term 05/01/2022 Active 1 goal linked to scheduled/documented intervention 4 goal interventions scheduled/documented in this visit Medication Management Disciplines: Long-Term 05/01/2022 Active 1 goal linked to scheduled/documented intervention 1 goal intervention scheduled/documented in this visit Pain Management Disciplines: Long-Term 05/01/2022 Active 1 goal linked to scheduled/documented intervention 1 goal intervention scheduled/documented in this visit Respiratory Disciplines: Long-Term 05/01/2022 Active 1 goal linked to scheduled/documented intervention 1 goal intervention scheduled/documented in this visit Wound Care and/or Skin Problems Disciplines: Long-Term 05/12/2022 Active 1 goal linked to scheduled/documented [...] Pt tolerated well. [facility] Visit Details Visit Type -SN HH Routine Vi sit Discipline -Long-Term Problems Problem Start Date Status Goals Interventions Assess and Instruct Home Visit Disciplines: Long-Term 05/01/2022 Active 1 goal linked to scheduled/documented intervention 4 goal interventions scheduled/documented in this visit Medication Management Disciplines: Long-Term 05/01/2022 Active 1 goal linked to scheduled/documented intervention 1 goal intervention scheduled/documented in this visit Pain Management Disciplines: Long-Term 05/01/2022 Active 1 goal linked to scheduled/documented intervention 1 goal intervention scheduled/documented in this visit Respiratory Disciplines: Long-Term 05/01/2022 Active 1 goal linked to scheduled/documented intervention 1 goal intervention scheduled/documented in this visit Wound Care and/or Skin Problems Disciplines: Long-Term 05/12/2022 Active 1 goal linked to scheduled/documented [...] Pt tolerated well. 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 Vi sit Discipline -Long-Term Problems Problem Start Date Status Goals Interventions Assess and Instruct Home Visit Disciplines: Long-Term 05/01/2022 Active 1 goal linked to scheduled/documented intervention 4 goal interventions scheduled/documented in this visit Medication Management Disciplines: Long-Term 05/01/2022 Active 1 goal linked to scheduled/documented intervention 1 goal intervention scheduled/documented in this visit Pain Management Disciplines: Long-Term 05/01/2022 Active 1 goal linked to scheduled/documented [...] Management Goal:Pain Scheduled [facility] Visit Details Visit Type -SN HH OASIS Rece rt Discipline -Long-Term Problems Problem Start Date Status Goals Interventions Assess and Instruct Home Visit Disciplines: Long-Term 05/01/2022 Active 1 goal linked to scheduled/documented intervention 4 goal interventions scheduled/documented in this visit Medication Management Disciplines: Long-Term 05/01/2022 Active 1 goal linked to scheduled/documented intervention 1 goal intervention scheduled/documented in this visit Pain Management Disciplines: Long-Term 05/01/2022 Active 1 goal linked to scheduled/documented intervention 1 goal intervention scheduled/documented in this visit Respiratory Disciplines: Long-Term 05/01/2022 Active 1 goal linked to scheduled/documented intervention 1 goal intervention scheduled/documented in this visit Wound Care and/or Skin Problems Disciplines: Long-Term 05/12/2022 Active 1 goal linked to scheduled/documented [...] and cleansing wound. [facility] Visit Details Visit Type -SN HH Routine Vi sit Discipline -Long-Term Problems Problem Start Date Status Goals Interventions Assess and Instruct Home Visit Disciplines: Long-Term 05/01/2022 Active 1 goal linked to scheduled/documented intervention 4 goal interventions scheduled/documented in this visit Medication Management Disciplines: Long-Term 05/01/2022 Active 1 goal linked to scheduled/documented intervention 1 goal intervention scheduled/documented in this visit Pain Management Disciplines: Long-Term 05/01/2022 Active 1 goal linked to scheduled/documented intervention 1 goal intervention scheduled/documented in this visit Respiratory Disciplines: Long-Term 05/01/2022 Active 1 goal linked to scheduled/documented intervention 1 goal intervention scheduled/documented in this visit Wound Care and/or Skin Problems Disciplines: Long-Term 05/12/2022 Active - 1 problem intervention scheduled/documented [...] health or provider. [facility] Visit Details Visit Type -SN HH OASIS Rece rt Discipline -Long-Term Problems Problem Start Date Status Goals Interventions Assess and Instruct Home Visit Disciplines: Long-Term 05/01/2022 Active 1 goal linked to scheduled/documented intervention 4 goal interventions scheduled/documented in this visit Medication Management Disciplines: Long-Term 05/01/2022 Active 1 goal linked to scheduled/documented intervention 1 goal intervention scheduled/documented in this visit Pain Management Disciplines: Long-Term 05/01/2022 Active 1 goal linked to scheduled/documented intervention 1 goal intervention scheduled/documented in this visit Respiratory Disciplines: Long-Term 05/01/2022 Active 1 goal linked to scheduled/documented intervention 1 goal intervention scheduled/documented in this visit Wound Care and/or Skin Problems Disciplines: Long-Term 05/12/2022 Active 1 goal linked to scheduled/documented [...] and cleansing wound. [facility] Visit Details Visit Type -SN HH Routine Vi sit Discipline -Long-Term Problems Problem Start Date Status Goals Interventions Assess and Instruct Home Visit Disciplines: Long-Term 05/01/2022 Active 1 goal linked to scheduled/documented intervention 4 goal interventions scheduled/documented in this visit Medication Management Disciplines: Long-Term 05/01/2022 Active 1 goal linked to scheduled/documented intervention 1 goal intervention scheduled/documented in this visit Pain Management Disciplines: Long-Term 05/01/2022 Active 1 goal linked to scheduled/documented intervention 1 goal intervention scheduled/documented in this visit Respiratory Disciplines: Long-Term 05/01/2022 Active 1 goal linked to scheduled/documented intervention 1 goal intervention scheduled/documented in this visit Wound Care and/or Skin Problems Disciplines: Long-Term 05/12/2022 Active - 1 problem intervention scheduled/documented [...] health or provider. [facility] Visit Details Visit Type -SN HH Routine Vi sit Discipline -Long-Term Problems Problem Start Date Status Goals Interventions Assess and Instruct Home Visit Disciplines: Long-Term 05/01/2022 Active 1 goal linked to scheduled/documented intervention 4 goal interventions scheduled/documented in this visit Medication Management Disciplines: Long-Term 05/01/2022 Active 1 goal linked to scheduled/documented intervention 1 goal intervention scheduled/documented in this visit Pain Management Disciplines: Long-Term 05/01/2022 Active 1 goal linked to scheduled/documented intervention 1 goal intervention scheduled/documented in this visit Respiratory Disciplines: Long-Term 05/01/2022 Active 1 goal linked to scheduled/documented intervention 1 goal intervention scheduled/documented in this visit Wound Care and/or Skin Problems Disciplines: Long-Term 05/12/2022 Active - 1 problem intervention scheduled/documented [...] with wound education. [facility] Visit Details Visit Type -SN HH Routine Vi sit Discipline -Long-Term Problems Problem Start Date Status Goals Interventions Assess and Instruct Home Visit Disciplines: Long-Term 05/01/2022 Active 1 goal linked to scheduled/documented intervention 4 goal interventions scheduled/documented in this visit Medication Management Disciplines: Long-Term 05/01/2022 Active 1 goal linked to scheduled/documented intervention 1 goal intervention scheduled/documented in this visit Pain Management Disciplines: Long-Term 05/01/2022 Active 1 goal linked to scheduled/documented intervention 1 goal intervention scheduled/documented in this visit Respiratory Disciplines: Long-Term 05/01/2022 Active 1 goal linked to scheduled/documented intervention 1 goal intervention scheduled/documented in this visit Wound Care and/or Skin Problems Disciplines: Long-Term 05/12/2022 Active - 1 problem intervention scheduled/documented [...] with wound education. [facility] Visit Details Visit Type -SN HH Routine Vi sit Discipline -Long-Term Problems Problem Start Date Status Goals Interventions Assess and Instruct Home Visit Disciplines: Long-Term 05/01/2022 Active 1 goal linked to scheduled/documented intervention 4 goal interventions scheduled/documented in this visit Medication Management Disciplines: Long-Term 05/01/2022 Active 1 goal linked to scheduled/documented intervention 1 goal intervention scheduled/documented in this visit Pain Management Disciplines: Long-Term 05/01/2022 Active 1 goal linked to scheduled/documented intervention 1 goal intervention scheduled/documented in this visit Respiratory Disciplines: Long-Term 05/01/2022 Active 1 goal linked to scheduled/documented intervention 1 goal intervention scheduled/documented in this visit Wound Care and/or Skin Problems Disciplines: Long-Term 05/12/2022 Active - 1 problem intervention scheduled/documented [...] with wound education. [facility] Visit Details Visit Type -SN HH Routine Vi sit Discipline -Long-Term Problems Problem Start Date Status Goals Interventions Assess and Instruct Home Visit Disciplines: Long-Term 05/01/2022 Active 1 goal linked to scheduled/documented intervention 4 goal interventions scheduled/documented in this visit Medication Management Disciplines: Long-Term 05/01/2022 Active 1 goal linked to scheduled/documented intervention 1 goal intervention scheduled/documented in this visit Pain Management Disciplines: Long-Term 05/01/2022 Active 1 goal linked to scheduled/documented intervention 1 goal intervention scheduled/documented in this visit Respiratory Disciplines: Long-Term 05/01/2022 Active 1 goal linked to scheduled/documented intervention 1 goal intervention scheduled/documented in this visit Wound Care and/or Skin Problems Disciplines: Long-Term 05/12/2022 Active - 1 problem intervention scheduled/documented [...] with wound education. [facility] Visit Details Visit Type -SN HH Routine Vi sit Discipline -Long-Term Problems Problem Start Date Status Goals Interventions Assess and Instruct Home Visit Disciplines: Long-Term 05/01/2022 Active 1 goal linked to scheduled/documented intervention 4 goal interventions scheduled/documented in this visit Medication Management Disciplines: Long-Term 05/01/2022 Active 1 goal linked to scheduled/documented intervention 1 goal intervention scheduled/documented in this visit Pain Management Disciplines: Long-Term 05/01/2022 Active 1 goal linked to scheduled/documented intervention 1 goal intervention scheduled/documented in this visit Respiratory Disciplines: Long-Term 05/01/2022 Active 1 goal linked to scheduled/documented intervention 1 goal intervention scheduled/documented in this visit Wound Care and/or Skin Problems Disciplines: Long-Term 05/12/2022 Active - 1 problem intervention scheduled/documented [...] with wound education. [facility] Visit Details Visit Type -SN HH OASIS Rece rt Discipline -Long-Term Problems Problem Start Date Status Goals Interventions Assess and Instruct Home Visit Disciplines: Long-Term 05/01/2022 Active 1 goal linked to scheduled/documented intervention 4 goal interventions scheduled/documented in this visit Medication Management Disciplines: Long-Term 05/01/2022 Active 1 goal linked to scheduled/documented intervention 1 goal intervention scheduled/documented in this visit Pain Management Disciplines: Long-Term 05/01/2022 Active 1 goal linked to scheduled/documented intervention 1 goal intervention scheduled/documented in this visit Respiratory Disciplines: Long-Term 05/01/2022 Active 1 goal linked to scheduled/documented intervention 1 goal intervention scheduled/documented in this visit Wound Care and/or Skin Problems Disciplines: Long-Term 05/12/2022 Active - 1 problem intervention scheduled/documented [...] with wound education. [facility] Visit Details Visit Type -SN HH OASIS Rece rt Discipline -Long-Term Problems Problem Start Date Status Goals Interventions Assess and Instruct Home Visit Disciplines: Long-Term 05/01/2022 Active 1 goal linked to scheduled/documented intervention 4 goal interventions scheduled/documented in this visit Medication Management Disciplines: Long-Term 05/01/2022 Active 1 goal linked to scheduled/documented intervention 1 goal intervention scheduled/documented in this visit Pain Management Disciplines: Long-Term 05/01/2022 Active 1 goal linked to scheduled/documented intervention 1 goal intervention scheduled/documented in this visit Respiratory Disciplines: Long-Term 05/01/2022 Active 1 goal linked to scheduled/documented intervention 1 goal intervention scheduled/documented in this visit Wound Care and/or Skin Problems Disciplines: Long-Term 05/12/2022 Active - 1 problem intervention scheduled/documented [...] with wound education. [facility] Visit Details Visit Type -SN HH OASIS Rece rt Discipline -Long-Term Problems Problem Start Date Status Goals Interventions Assess and Instruct Home Visit Disciplines: Long-Term 05/01/2022 Active 1 goal linked to scheduled/documented intervention 4 goal interventions scheduled/documented in this visit Medication Management Disciplines: Long-Term 05/01/2022 Active 1 goal linked to scheduled/documented intervention 1 goal intervention scheduled/documented in this visit Pain Management Disciplines: Long-Term 05/01/2022 Active 1 goal linked to scheduled/documented intervention 1 goal intervention scheduled/documented in this visit Respiratory Disciplines: Long-Term 05/01/2022 Active 1 goal linked to scheduled/documented intervention 1 goal intervention scheduled/documented in this visit Wound Care and/or Skin Problems Disciplines: Long-Term 05/12/2022 Active - 1 problem intervention scheduled/documented [...] with wound education. [facility] Visit Details Visit Type -SN HH Routine Vi sit Discipline -Long-Term Problems Problem Start Date Status Goals Interventions Assess and Instruct Home Visit Disciplines: Long-Term 05/01/2022 Active 1 goal linked to scheduled/documented intervention 4 goal interventions scheduled/documented in this visit Medication Management Disciplines: Long-Term 05/01/2022 Active 1 goal linked to scheduled/documented intervention 1 goal intervention scheduled/documented in this visit Pain Management Disciplines: Long-Term 05/01/2022 Active 1 goal linked to scheduled/documented intervention 1 goal intervention scheduled/documented in this visit Respiratory Disciplines: Long-Term 05/01/2022 Active 1 goal linked to scheduled/documented intervention 1 goal intervention scheduled/documented in this visit Wound Care and/or Skin Problems Disciplines: Long-Term 05/12/2022 Active - 1 problem intervention scheduled/documented [...] with wound education. 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 -Long-Term Problems Problem Start Date Status Goals Interventions Assess and Instruct Home Visit Disciplines: Long-Term 05/01/2022 Active 1 goal linked to scheduled/documented intervention 4 goal interventions scheduled/documented in this visit Medication Management Disciplines: Long-Term 05/01/2022 Active 1 goal linked to scheduled/documented intervention 1 goal intervention scheduled/documented in this visit Pain Management Disciplines: Long-Term 05/01/2022 Active 1 goal linked to scheduled/documented intervention 1 goal intervention scheduled/documented in this visit Wound Care and/or Skin Problems Disciplines: Long-Term 05/12/2022 Active - 1 problem intervention scheduled/documented [...] of care note* Visit Details Visit Type -[facility] Guerrero sfer Discipline -Long-Term Problems Problem Start Date Status Goals Interventions Assess and Instruct Home Visit Disciplines: Long-Term 05/01/2022 Active 1 goal linked to scheduled/documented intervention 4 goal interventions scheduled/documented in this visit Medication Management Disciplines: Long-Term 05/01/2022 Active 1 goal linked to scheduled/documented intervention 1 goal intervention scheduled/documented in this visit Pain Management Disciplines: Long-Term 05/01/2022 Active 1 goal linked to scheduled/documented intervention 1 goal intervention scheduled/documented in this visit Wound Care and/or Skin Problems Disciplines: Long-Term 05/12/2022 Active - 1 problem intervention scheduled/documented [...] of care note* Visit Details Visit Type -[facility] Resu mption of Care Discipline -Long-Term Problems Problem Start Date Status Goals Interventions Assess and Instruct Home Visit Disciplines: Long-Term 05/01/2022 Active 1 goal linked to scheduled/documented intervention 4 goal interventions scheduled/documented in this visit Medication Management Disciplines: Long-Term 05/01/2022 Active 1 goal linked to scheduled/documented intervention 1 goal intervention scheduled/documented in this visit Pain Management Disciplines: Long-Term 05/01/2022 Active 1 goal linked to scheduled/documented intervention 1 goal intervention scheduled/documented in this visit Respiratory Disciplines: Long-Term 05/01/2022 Active 1 goal linked to scheduled/documented intervention 1 goal intervention scheduled/documented in this visit Wound Care and/or Skin Problems Disciplines: Long-Term 05/12/2022 Active - 1 problem intervention scheduled/documented [...] with wound education. [facility] Visit Details Visit Type -[facility] OASIS Resu mption of Care Discipline -Long-Term Problems Problem Start Date Status Goals Interventions Assess and Instruct Home Visit Disciplines: Long-Term 05/01/2022 Active 1 goal linked to scheduled/documented intervention 4 goal interventions scheduled/documented in this visit Medication Management Disciplines: Long-Term 05/01/2022 Active 1 goal linked to scheduled/documented intervention 1 goal intervention scheduled/documented in this visit Pain Management Disciplines: Long-Term 05/01/2022 Active 1 goal linked to scheduled/documented intervention 1 goal intervention scheduled/documented in this visit Respiratory Disciplines: Long-Term 05/01/2022 Active 1 goal linked to scheduled/documented intervention 1 goal intervention scheduled/documented in this visit Wound Care and/or Skin Problems Disciplines: Long-Term 05/12/2022 Active - 1 problem intervention scheduled/documented [...] with wound education. [facility] Visit Details Visit Type -SN HH Routine Vi sit Discipline -Long-Term Problems Problem Start Date Status Goals Interventions Assess and Instruct Home Visit Disciplines: Long-Term 05/01/2022 Active 1 goal linked to scheduled/documented intervention 4 goal interventions scheduled/documented in this visit Medication Management Disciplines: Long-Term 05/01/2022 Active 1 goal linked to scheduled/documented intervention 1 goal intervention scheduled/documented in this visit Pain Management Disciplines: Long-Term 05/01/2022 Active 1 goal linked to scheduled/documented intervention 1 goal intervention scheduled/documented in this visit Respiratory Disciplines: Long-Term 05/01/2022 Active 1 goal linked to scheduled/documented intervention 1 goal intervention scheduled/documented in this visit Wound Care and/or Skin Problems Disciplines: Long-Term 05/12/2022 Active 1 goal linked to scheduled/documented [...] with wound education. [facility] Visit Details Visit Type -[facility] OASIS Disc harge Discipline -Long-Term Problems Problem Start Date Status Goals Interventions Assess and Instruct Home Visit Disciplines: Long-Term 05/01/2022 Resolved on 12/22/2022 1 goal linked to scheduled/documented intervention 4 goal interventions scheduled/documented in this visit Medication Management Disciplines: Long-Term 05/01/2022 Resolved on 12/22/2022 1 goal linked to scheduled/documented intervention 1 goal intervention scheduled/documented in this visit Pain Management Disciplines: Long-Term 05/01/2022 Resolved on 12/22/2022 1 goal linked to scheduled/documented intervention 1 goal intervention scheduled/documented in this visit Wound Care and/or Skin Problems Disciplines: Long-Term 05/12/2022 Resolved on 12/22/2022 - 1 problem [...] he will see the patient in the [facility] wed and confirms patient will need to be drained by [facility] wed sometime [facility] Actions left side area of concern be low insertion site picture taaken and uploaded into [employer]. message sent to Niurka BALTAZAR with dr [...] - 10 pleure x drains/dressing kits order #[id number] [facility] Actions L pleurex drain - 350ml ambe r hazy R pleurex drain - 450ml yellow hazy [facility]* Actions Supplies ordered - 10 pleure x drains/dressing kits order #[id number] [facility] [...] supplies ordered - 10 kits - confirmation #[id number] [facility]* Actions KHOI pleurex drain catheters drained without issue.Pt tolerated well. 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 As of now, it is planned that he runs 3x/day, M, W, F. [facility]* Actions #[id number] - order number 10 pleurex drains [facility]* Actions 10 pleurex drain kits ordere d - Confirmation #[id number] L drain - 350ml clear yellow noted [...] his coccyx area. [facility] Actions A picture of the pt's wound was take, and then wound care was performed. After the pt had donned his clothes and sat down, the picture was showed to him. While transfering the phone back, the [employer] catracho was accidently closed. This caused the [...] home care services. documented in this encounter [facility] for visit Narrative* Auth/Cert Specialty Diagnoses / Procedures Referred By Alisson t Referred To Contact Diagnoses Pleural effusion Bilateral pleural effusion Pleural effusion [J90] Bilateral pleural effusion [J90] Procedures WY INSERTION INDWELLING TUNNELED PLEURAL CATHETER RIGHT PLEUR X CATHETER PLACEMENT Referral ID Status Reason Start Date Expiration Date Visits Re quested Visits Authorized [id number] 1 1 [facility] N[facility]ative* Auth/Cert Specialty Diagnoses / Procedures Referred By Contac t Referred To Contact Referral ID Status Reason Start Date Expiration Date Visits Re quested Visits Authorized [id number] 1 1 [facility] N[facility]ative* Auth/Cert Specialty Diagnoses / Procedures Referred By Contac t Referred To Contact Referral ID Status Reason Start Date Expiration Date Visits Re quested Visits Authorized [id number] 1 1 [facility] N[facility]ative* Auth/Cert Specialty Diagnoses / Procedures Referred By Contac t Referred To Contact Referral ID Status Reason Start Date Expiration Date Visits Re quested Visits Authorized [id number] 1 1 [facility] N[facility]ative* Auth/Cert Specialty Diagnoses / Procedures Referred By Contac t Referred To Contact Diagnoses Malignant neoplasm of ascending colon (HCC) Malignant neoplasm of ascending colon (HCC) [C18.2] Procedures WY COLECTOMY PRTL W/RMVL TERMINAL ILEUM & ILEOCOLOS Sherry George, DO [address] [place] [address] Referral ID Status Reason Start Date Expiration Date Visits Re quested Visits Authorized [id number] 04/11/2022 1 1 [facility] Assessments Diagnosis Coronary artery disease invo lving north fork coronary artery of north fork heart without angina pectoris - Primary Essential hypertension Unspecified essential hypertension Diagnosis Essential hypertension- Primary Unspecified essential hypertension Coronary artery disease involving north fork coronary artery of north fork heart without angina pectoris Dyspnea on exertion Other dyspnea and respiratory abnormality Ventricular tachycardia (paroxysmal) (HCC) Paroxysmal ventricular tachycardia Mixed hyperlipidemia Diagnosis Coronary artery disease involving north fork coronary artery of north fork heart without angina pectoris Essential hypertension Unspecified essential hypertension Ventricular tachycardia (paroxysmal) (HCC) Paroxysmal ventricular tachycardia Diagnosis Coronary artery disease involving north fork coronary artery of north fork heart without angina pectoris- Primary Mixed hyperlipidemia Chronic combined systolic and diastolic congestive heart failure (HCC) Essential hypertension Unspecified essential hypertension Diagnosis ELLIOTT (dyspnea on exertion) Other dyspnea and respiratory abnormality Diagnosis Therapeutic drug monitoring- Primary Encounter for therapeutic drug monitoring ELLIOTT (dyspnea on exertion) Other dyspnea and respiratory abnormality Essential hypertension Unspecified essential hypertension Coronary artery disease involving north fork coronary artery of north fork heart without angina pectoris MRACELO on CPAP Chronic systolic congestive heart failure [...] failure (HCC) Diagnosis Coronary artery disease involving north fork coronary artery of north fork heart without angina pectoris Chronic systolic congestive heart failure (HCC) Mixed hyperlipidemia Essential hypertension Unspecified essential hypertension Diagnosis Therapeutic drug monitoring Encounter for therapeutic drug monitoring Chronic systolic congestive heart failure (HCC) Diagnosis Therapeutic drug monitoring Encounter for therapeutic drug monitoring Chronic systolic heart failure (HCC) Chronic systolic heart failure Diagnosis Coronary artery disease involving north fork coronary artery of north fork heart without angina pectoris Diagnosis Chronic systolic congestive heart failure (HCC) Diagnosis medication management- Primary Encounter for therapeutic drug monitoring Chronic systolic congestive heart failure (HCC) Diagnosis Therapeutic drug monitoring- Primary Encounter for therapeutic drug monitoring Chronic systolic heart failure (HCC) Chronic systolic heart failure Diagnosis MARCELO on CPAP Essential hypertension Unspecified essential hypertension Coronary artery disease involving north fork coronary artery of north fork heart without angina pectoris Chronic systolic congestive heart failure (HCC) Diagnosis Therapeutic drug monitoring- Primary Encounter for therapeutic drug monitoring Chronic systolic congestive heart failure (HCC) Diagnosis Coronary artery disease involving north fork coronary artery of north fork heart without angina pectoris- Primary Mixed hyperlipidemia Chronic systolic congestive heart failure (HCC) Essential hypertension Unspecified essential hypertension 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) Reason for Referral Status Reason Specialty Diagnoses / Procedures Referred By Contact Referred To Contact Authorized Cardiology Diagnoses Coronary artery disease involving north fork coronary artery of north fork heart without angina pectoris Essential hypertension Ventricular tachycardia (paroxysmal) (HCC) Procedures Echocardiogram complete Lenin Ramirez MD [address] [facility] [address] [place] [address] Status Reason Specialty Diagnoses / Procedures Referred By Contact Referred To Contact Authorized Cardiology Diagnoses Coronary artery disease involving north fork coronary artery of north fork heart without angina pectoris Procedures ECG 12 lead Lenin Ramirez MD [address] [place] [address] Status Reason Specialty Diagnoses / Procedures Referre d By Contact Referred To Contact Closed Cardiology Diagnoses Coronary artery disease involving north fork coronary artery of north fork heart without angina pectoris Essential hypertension Ventricular tachycardia (paroxysmal) (HCC) Procedures Echocardiogram complete Lenin Ramirez MD [address] [facility] [address] [place] [address] Status Reason Specialty Diagnoses / Procedures Referre d By Contact Referred To Contact Closed Radiology Diagnoses ELLIOTT (dyspnea on exertion) Procedures NM Myocardial Perfusion Multiple SPECT Lenin Ramirez MD [address] [facility] [address] [place] [address] Status Reason Specialty Diagnoses / Procedures Referred By Contact Referred To Contact Pending Review Cardiology Diagnoses ELLIOTT (dyspnea on exertion) Procedures Echocardiogram complete Park Hawk, 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 [address] [facility] [address] [place], [place] [phone] Status Reason Specialty Diagnoses / Procedures Referred By Contact Referred To Contact Authorized Diagnoses Therapeutic drug monitoring Park Hawk, IGOR [address] [facility] [address] [place], [place] [phone] [facility] [address] [place] [address] Status Reason Specialty Diagnoses / Procedures Referre d By Contact Referred To Contact Closed Cardiology Diagnoses ELLIOTT (dyspnea on exertion) Procedures Echocardiogram complete Park Hawk CNP [address] [phone] Specialty Diagnoses / Procedures Referred By Contac t Referred To Contact Cardiology Diagnoses PAF (paroxysmal atrial fibrillation) (HCC) Procedures ECG 12 lead Park Hawk CNP [address] [phone] Referral ID Status Reason Start Date Expiration Date V isits Requested Visits Authorized [id number] Pending Review 10/26/2020 10/26/2021 1 1 Referral ID Status Reason Start Date Expiration Date V isits Requested Visits Authorized [id number] Authorized 10/26/2020 10/26/2021 1 1 Specialty Diagnoses / Procedures Referred By Contac t Referred To Contact Radiology Diagnoses Pleural effusion Procedures CT Guided Thoracentesis Park Hawk CNP [address] [place] [address] Referral ID Status Reason Start Date Expiration Date V isits Requested Visits Authorized [id number] New Request 10/26/2020 10/26/2021 1 1 Specialty Diagnoses / Procedures Referred By Contac t Referred To Contact Cardiology Diagnoses S/P CABG (coronary artery bypass graft) PAF (paroxysmal atrial fibrillation) (HCC) Chronic systolic congestive heart failure (HCC) Coronary artery disease involving north fork coronary artery of north fork heart without angina pectoris Essential hypertension Procedures Echocardiogram complete Lenin Ramirez MD [address] [address] Referral ID Status Reason Start Date Expiration Date V isits Requested Visits Authorized [id number] Pending Review 01/17/2021 01/17/2022 1 1 Specialty Diagnoses / Procedures Referred By Contac t Referred To Contact Radiology Diagnoses Pleural effusion Procedures CT Chest Without Contrast Jalil Sparks MD [address] [facility] [address] [place] [address] Referral ID Status Reason Start Date Expiration Date V isits Requested Visits Authorized [id number] Authorized 01/12/2021 01/12/2022 1 1 Specialty Diagnoses / Procedures Referred By Contac t Referred To Contact Cardiology Diagnoses PAF (paroxysmal atrial fibrillation) (HCC) Procedures ECG 12 Lead Lenin Ramirez MD [address] [facility] [address] [place] [phone] Referral ID Status Reason Start Date Expiration Date V isits Requested Visits Authorized [id number] Pending Review 06/09/2021 06/09/2022 4 4 Specialty Diagnoses / Procedures Referred By Contac t Referred To Contact Home Health Services Diagnoses Sepsis, due to unspecified organism, unspecified whether acute organ dysfunction present (HCC) Other pneumonia, unspecified organism Jalil Sparks MD [address] [place] [address] [address] [place] [address] [address] Referral ID Status Reason Start Date Expiration Date V isits Requested Visits Authorized [id number] Authorized 07/05/2021 07/05/2022 1 1 Specialty Diagnoses / Procedures Referred By Contac t Referred To Contact Home Health Services Diagnoses Chronic systolic congestive heart failure (HCC) Coronary artery disease involving north fork coronary artery of north fork heart without angina pectoris Dyspnea on exertion Generalized weakness Lenin Ramirez MD [address] [address] Referral ID Status Reason Start Date Expiration Date Visits Requested Visits Authorized [id number] Authorized Specialty Services Required/Pat reinaldont's Best Interest 08/17/2021 08/17/2022 1 1 Specialty Diagnoses / Procedures Referred By Contac t Referred To Contact Cardiology Diagnoses Coronary artery disease involving north fork coronary artery of north fork heart without angina pectoris Chronic systolic congestive heart failure (HCC) Procedures Echocardiogram limited Lenin Ramirez MD [address] [facility] [address] [place] [address] Referral ID Status Reason Start Date Expiration Date V isits Requested Visits Authorized [id number] New Request 11/17/2021 11/17/2022 1 1 Specialty Diagnoses / Procedures Referred By Contac t Referred To Contact General Surgery Diagnoses Adenocarcinoma (HCC) System, Provider Not In Sherry George DO [address] [address] Referral ID Status Reason Start Date Expiration Date V isits Requested Visits Authorized [id number] Authorized 03/23/2022 03/23/2023 1 1 Referral ID Status Reason Start Date Expiration Date V isits Requested Visits Authorized [id number] Pending Review 08/26/2022 08/26/2023 10 10 Specialty Diagnoses / Procedures Referred By Contac t Referred To Contact Radiology Diagnoses Elevated CEA Malignant neoplasm of ascending colon (HCC) Procedures CT Chest Abdomen Pelvis With Contrast Sherry George DO [address] [address] Referral ID Status Reason Start Date Expiration Date V isits Requested Visits Authorized [id number] Pending Review 11/28/2022 11/28/2023 1 1 Specialty Diagnoses / Procedures Referred By Contac t Referred To Contact Home Health Services Diagnoses Malignant neoplasm of ascending colon (HCC) PAF (paroxysmal atrial fibrillation) (HCC) ESRD on dialysis (HCC) Cellulitis of other specified site Cellulitis of perineum Zack Olmos MD [address] [place] [address] [address] Referral ID Status Reason Start Date Expiration Date V isits Requested Visits Authorized [id number] Authorized 11/29/2022 11/29/2023 1 1 Referral ID Status Reason Start Date Expiration Date V isits Requested Visits Authorized [id number] New Request 03/08/2023 03/07/2024 1 1 History [...] effusions and is scheduled to see a international nurse next week. He deniesany fever or chills, [...] left IVCD. Assessment/Plan: Coronary artery disease involving north fork coronary artery of north fork heart without angina pectoris As ischemic status [...] concerning. He is scheduled to see a international nurse next week to have this evaluated further. [...] reasonably well following his recent hospitalization in [place] for fluid overload. He was diuresed nearly 10 pounds with a marked improvement in his edema and a mild improvement in his exertional dyspnea. He did have a visit with the international nurse and is scheduled to undergo testing within [...] daily . Assessment/Plan: Coronary artery disease involving north fork coronary artery of north fork heart without angina pectoris Ed continues doing [...] not nervous/anxious. in this encounter* Park Hawk, 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 - 07/26/2018 10:44 AM EDT [facility] [address] [facility] [address] [facility] [phone] Assessment & Plan: Essential hypertension B/P above goal 152/78, 163/72. Monitors B/P at home almost daily and states has noticed a trend in increasing B/P. Current medications include: Lopressor 25 mg daily, Exforge 5-320 mg daily. Will plan on making medication adjustments relative to decreased EF and continue to monitor B/P closely. Coronary artery disease involving north fork coronary artery of north fork heart without angina pectoris Long-standing CAD with Hx NM in 2005 Cath 2015: Discrete 40% proximal [...] pillow. I suggested that he contact the [employer] company to discuss other device options to improve his comfort and compliance. CHF (congestive heart failure) (HCC) Hospitalized at [facility] earlier this year with successful diuresis. Known CKD, stage 3 and follows with Nephrology, Dr. Christiansen, in [place]. Recent stress testing revealed substantial decline in EF. Ed states he does have ELLIOTT, now with moderate exertion, it has improved from the ELLIOTT he was experiencing with minimal exertion. Ed continues to have bilateral lower leg edema which improves overnight and increases as his day goes on. He is wearing compression stockings daily. 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 Orders Placed This Encounter [...] an acute HF episode at [facility]. After diuresis the symptoms of ELLIOTT with mild exertion improved. He continues to have ELLIOTT with moderate exertion and bilateral lower leg edema persists. He denies chest pain/pressure, orthopnea, PND, palpitations, lightheadedness, syncope or near-syncopal episodes. Histories: Past Medical History: Diagnosis Date Abnormal stress test Arthritis Chest pain CHF (congestive heart failure) ([facility]) Chronic kidney disease COPD (chronic obstructive pulmonary disease) ([facility]) 03/2018 Coronary artery disease Hyperlipidemia Hypertension Myocardial infarction ([facility]) MARCELO on CPAP 2018 SOB (shortness of breath) Past Surgical History: Procedure Laterality Date CARDIAC CATHETERIZATION N/A 08/11/2014 Procedure: Left Heart Cath Possible PTCA/Stent; Surgeon: Lenin Ramirez MD; [facility]; Service: CARDIAC CATHETERIZATION Right 12/31/2014 Procedure: Left Heart Cath Possible PTCA/Stent; Surgeon: Ranulfo Cobb MD; Location: [facility]; Service: CARDIAC CATHETERIZATION 08/11/2014 EF: 55% CARDIAC [...] in about 3 weeks (around 08/16/2018) for SAP PROJECT MANAGER visit. Park Hawk CNP * Maritza Barron [...] EDT Heart Disease Management Nurse Progress Note [facility] 08/03/18 Minh Gonzalez 1945 Congestive [...] EDT Heart Disease Management Nurse Progress Note [facility] 08/10/18 Minh Limtristen 1945 Congestive [...] EDT Heart Disease Management Nurse Progress Note [facility] 08/31/18 Minh Gonzalez 1945 Congestive [...] EDT Heart Disease Management Nurse Progress Note [facility] 09/21/18 Minh Gonzalez 1945 Congestive [...] Slight limitation of physical activity. Lab Drawn: [facility] today Assessment & Plan Minh was [...] EDT Heart Disease Management Nurse Progress Note [facility] 10/12/18 Minh Gonzalez 1945 Congestive [...] EDT Pre Auth has been approved by [facility] for Entresto 49 mg/51 mg. Pharmacy notified (Ligia Tillman) documented in this encounter* Leonila Walls RN - 11/09/2018 10:34 AM EDT Heart Disease Management Nurse Progress Note [facility] 11/09/18 Minh Askewrich 1945 Congestive [...] EDT Heart Disease Management Nurse Progress Note [facility] 12/31/18 Minh Gonzalez 1945 Congestive [...] Slight limitation of physical activity. Lab Drawn: [facility] today Assessment & Plan Minh was [...] productive cough but will be seeing his Foxing Cutting Machine Operator next week. Diagnoses and all orders for [...] day . Assessment/Plan: Coronary artery disease involving north fork coronary artery of north fork heart without angina pectoris He continues doing [...] EST Heart Disease Management Nurse Progress Note [facility] 03/25/19 Minh Gonzalez 1945 Congestive [...] EDT Heart Disease Management Nurse Progress Note [facility] 05/24/19 Minh Askewrich 1945 Congestive [...] EDT Heart Disease Management Nurse Progress Note [facility] 07/31/19 Minh Limtristen 1945 Congestive [...] EDT Heart Disease Management Nurse Progress Note [facility] 09/09/19 Minh Gonzalez 1945 Congestive [...] 10/01/2019 9:05 AM EDT Application faxed to [employer] Patient assistance. FAX: [phone] documented in this encounter* Leonila Walls RN - 11/04/2019 12:10 PM EDT Heart Disease Management Nurse Progress Note [facility] 11/04/19 Minh Askewrich 1945 Congestive [...] EDT Heart Disease Management Nurse Progress Note [facility] 12/23/19 Minh Gonzalez 1945 Congestive [...] EST Heart Disease Management Nurse Progress Note [facility] 02/17/20 Minh Limtristen 1945 Congestive [...] Lasix for him. He is following a Electricity Trading Analyst in [place] who was happy with his numbers last week. Ed said he will see his Foxing Cutting Machine Operator next week. BP stable at home. His [...] EST Heart Disease Management Nurse Progress Note [facility] 01/28/19 Minh Gonzalez 1945 Congestive [...] productive cough in the morning but his Foxing Cutting Machine Operator does not want to start any inhalers [...] 11:57 AM EDT [facility] [address] [facility] [address] [facility] [id number] Assessment & Plan: MARCELO on CPAP Using [...] quite bothersome diarrhea. Coronary artery disease involving north fork coronary artery of north fork heart without angina pectoris Long-standing CAD with [...] breathing difficulty. 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 [...] Chest pain CHF (congestive heart failure) ([facility]) Chronic kidney disease COPD (chronic obstructive pulmonary disease) ([facility]) 03/2018 Coronary artery disease Hyperlipidemia Hypertension Myocardial infarction ([facility]) MARCELO on CPAP 2018 SOB (shortness of breath) Past Surgical History: Procedure Laterality Date CARDIAC CATHETERIZATION N/A 08/11/2014 Procedure: Left Heart Cath Possible PTCA/Stent; Surgeon: Lenin Ramirez MD; Location: [facility]; Service: CARDIAC CATHETERIZATION Right 12/31/2014 Procedure: Left Heart Cath Possible PTCA/Stent; Surgeon: Ranulfo Cobb MD; Location: [facility]; Service: CARDIAC CATHETERIZATION 08/11/2014 EF: 55% CARDIAC [...] EST Heart Disease Management Nurse Progress Note [facility] 04/20/20 Minh Askewrich 1945 Congestive [...] EDT Heart Disease Management Nurse Progress Note [facility] 11/30/18 Minh Crobin Lisa 1945 Congestive Heart Failure (HFC visit) [...] some increase in edema, states he had grenadian last night. Ed states he has no [...] AM EST Telephone Visit Via Phone Call [facility] [address] [facility] [address] [facility] [phone] Telephone Visit [facility] 03/26/2020 Lenin Ramirez MD Provider Location: [place] Patient Location Medical Coding Manager: None Patient Location: Patient's Home Patient: [...] there are inherent diagnostic limitations compared to [id number] evaluations. We elected toproceed with the telephone [...] were made today. Coronary artery disease involving north fork coronary artery of north fork heart without angina pectoris - Primary He has no angina no other symptoms suggestive of progressive ischemic disease. Relevant Medications rosuvastatin (Crestor) 10 MG tablet carvediloL (COREG) 25 MG tablet CHF (congestive heart failure) ([facility]) I am extremely pleased with how well [...] EDT Heart Disease Management Nurse Progress Note [facility] 06/19/20 Minh Gonzalez 1945 Congestive [...] Will continue to monitor kidneys through his Electricity Trading Analyst. Diagnoses and all orders for this visit: [...] Documents on File Type Date Recorded Patient Electrician Yard Expl anation Advance Directives and Livin g Will Advance Directives and Livin g Will 05/04/2018 12:00 AM Documents on File Type Date Recorded Patient Electrician Yard Expl anation Advance Directives and Livin g Will Advance Directives and Livin g Will 05/04/2018 12:00 AM Documents on File Type Date Recorded Patient Electrician Yard Expl anation Advance Directives and Livin g [...] Documents on File Type Date Recorded Patient Electrician Yard Expl anation Advance Directives and Livin g [...] Documents on File Type Date Recorded Patient Electrician Yard Expl anation Advance Directives and Livin g Will Advance Directives and Livin g Will 10/26/2020 9:39 AM Documents on File Type Date Recorded Patient Electrician Yard Expl anation Advance Directives and Livin g Will Advance Directives and Livin g Will 11/23/2020 2:00 PM Documents on File Type Date Recorded Patient Electrician Yard Expl anation Advance Directives and Livin g Will Advance Directives and Livin g Will 11/23/2020 2:00 PM Documents on File Type Date Recorded Patient Electrician Yard Expl anation Advance Directives and Livin g Will Advance Directives and Livin g Will 01/13/2021 2:47 PM Documents on File Type Date Recorded Patient Electrician Yard Expl anation Advance Directives and Livin g Will Advance Directives and Livin g Will 01/13/2021 2:47 PM Documents on File Type Date Recorded Patient Electrician Yard Expl anation Advance Directives and Livin g [...] Documents on File Type Date Recorded Patient Electrician Yard Expl anation Advance Directives and Livin g Will Advance Directives and Livin g Will 01/18/2021 2:47 PM Latest Code Status on File Code Status Date Activated Date Inactivated Comments Full Code 01/18/2021 9:08 AM 01/19/2021 5:39 PM Full Code 09/04/2020 1:22 PM 09/10/2020 1:54 PM Documents on File Type Date Recorded Patient Electrician Yard Expl anation Advance Directives and Livin g Will Advance Directives and Livin g Will 02/03/2021 2:47 PM Documents on File Type Date Recorded Patient Electrician Yard Expl anation Advance Directives and Livin g Will Advance Directives and Livin g Will 02/03/2021 2:47 PM Documents on File Type Date Recorded Patient Electrician Yard Expl anation Advance Directives and Living Will Advance Directives and Living Will 02/22/2021 2:47 PM NO COPY IN SOARIAN Documents on File Type Date Recorded Patient Electrician Yard Expl anation Advance Directives and Living Will [...] Documents on File Type Date Recorded Patient Electrician Yard Expl anation Power of Credit Processor Latest Code Status on File Code Status [...] Documents on File Type Date Recorded Patient Electrician Yard Expl anation Power of Credit Processor Latest Code Status on File Code Status [...] Closed Cardiology Diagnoses Coronary artery disease involving north fork coronary artery of north fork heart without angina pectoris Essential hypertension Ventricular tachycardia (paroxysmal) (HCC) Procedures Echocardiogram complete Lenin Ramirez MD [address] [facility] [address] [place] [address] Reason Comments Follow-up s/p d/c [facility]. new ons et CHF Medication Management pt is to start Exf orge 5/320 mg tablet. 1 tablet PO QD Status Reason Specialty Diagnoses / Procedures Referre d By Contact Referred To Contact Closed Radiology Diagnoses ELLIOTT (dyspnea on exertion) Procedures NM Myocardial Perfusion Multiple SPECT Lenin Ramirez MD [address] [facility] [address] [place] [address] Reason Comments Follow-up abn SPECT. Hypertension pt [...] on exertion) Procedures Echocardiogram complete Park Hawk, 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 [address] [facility] [address] [place] [address] Reason Comments Follow-up 6 mo f/u. no [...] Surgery Diagnoses Bilateral pleural effusion Park Hawk, 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 [address] [place] [address] Michael Quinn MD [address] [place] [address] Referral ID Status Reason Start Date Expiration Date V isits Requested Visits Authorized [id number] Closed Specialty Services Required/Khalida ent's Best Interest [...] Not In Sherry George, DO [address] [place] [address] Referral ID Status Reason Start Date Expiration Date Visits Re quested Visits Authorized [id number] Closed 03/23/2022 03/23/2023 1 1 Reason Comments Fatigue Specialty Diagnoses / Procedures Referred By Alisson gallegos Referred To Contact Referral ID Status Reason Start Date Expiration Date Visits Re quested Visits Authorized [id number] 1 1 Reason Comments Medication Refill Reason [...] concerning. He is scheduled to see a international nurse next week to have this evaluated further. [...] today. Associated Problem(s): Coronary artery disease involving north fork coronary artery of north fork heart without angina pectoris As ischemic status [...] weeks. Associated Problem(s): Coronary artery disease involving north fork coronary artery of north fork heart without angina pectoris Ed continues doing well from an ischemic standpoint with no angina no EKG evidence of disease progression. I made no changes in his regimen today. in this encounter Associated Problem(s): CHF (congestive heart failure) (HCC) Hospitalized at [facility] earlier this year with successful diuresis. Known CKD, stage 3 and follows with Nephrology, Dr. Christiansen, in [place]. Recent stress testing revealed substantial decline in EF. Ed states he does have ELLIOTT, now with moderate exertion, it has improved from the ELLIOTT he was experiencing with minimal exertion. Ed continues to have bilateral lower leg edema which improves overnight and increases as his day goes on. He is wearing compression stockings daily. 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 Associated Problem(s): MARCELO on CPAP Currently using CPAP. States is struggling to adjust to the device. Is using a nasal pillow. I suggested that he contact the [employer] company to discuss other device options to improve his comfort and compliance. Associated Problem(s): Coronary artery disease involving north fork coronary artery of north fork heart without angina pectoris Long-standing CAD with Hx NM in 2005 Cath 2015: Discrete 40% proximal [...] Associated Problem(s): CHF (congestive heart failure) ([facility]) His most recent echocardiogram demonstrated stable left ventricular systolic function with ejection fraction in the range of 40 to 45%. Given his elevated blood pressure I did increase his Entresto to 97-103 mg twice daily but made no other changes in his medicines. Associated Problem(s): Coronary artery disease involving north fork coronary artery of north fork heart without angina pectoris He continues doing [...] breathing difficulty. 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 Associated Problem(s): Coronary artery disease involving north fork coronary artery of north fork heart without angina pectoris Long-standing CAD with [...] basis. Associated Problem(s): Coronary artery disease involving north fork coronary artery of north fork heart without angina pectoris He has no [...] DATE CREATED AUTHOR AUTHOR'S ORGANIZ ATION 08/07/2020 [facility] DATE CREATED AUTHOR AUTHOR'S ORGANIZ ATION 05/08/2021 [facility] DATE CREATED AUTHOR AUTHOR'S ORGANIZ ATION 05/23/2021 [facility] DATE CREATED AUTHOR AUTHOR'S ORGANIZ ATION 08/06/2021 [facility] DATE CREATED AUTHOR AUTHOR'S ORGANIZ ATION 11/24/2021 [facility] DATE CREATED AUTHOR AUTHOR'S ORGANIZ ATION 05/01/2022 [facility] DATE CREATED AUTHOR AUTHOR'S ORGANIZ ATION 12/01/2022 [facility] DATE CREATED AUTHOR AUTHOR'S ORGANIZ ATION 12/04/2022 [facility] DATE CREATED AUTHOR AUTHOR'S ORGANIZ ATION 03/23/2023 [facility] DATE CREATED AUTHOR AUTHOR'S ORGANIZ ATION 03/26/2023 [facility] Care Teams (unrecognized sec tion and content) Make Up Operator Relationship Specialty Start Date End Date Zack Olmos MD [address] [place] [address] PCP - General Family Medicine 08/11/14 Make Up Operator Relationship Specialty Start Date End Date Zack Olmos MD [address] [place] [address] 18774 PCP - General Family Medicine 08/11/14 Make Up Operator Relationship Specialty Start Date End Date Zack Olmos MD [address] [place] [address] PCP - General Family Medicine 08/11/14 Make Up Operator Relationship Specialty Start Date End Date Zack Olmos MD [address] [place] [address] PCP - General Family Medicine 08/11/14 Make Up Operator Relationship Specialty Start Date End Date Zack Olmos MD [address] [place] [address] 24785 PCP - General Family Medicine 08/11/14 Make Up Operator Relationship Specialty Start Date End Date Zack Olmos MD [address] [place] [address] 93303 PCP - General Family Medicine 08/11/14 Make Up Operator Relationship Specialty Start Date End Date Zack Olmos MD [address] [place] [address]52 PCP - General Family Medicine 08/11/14 Make Up Operator Relationship Specialty Start Date End Date Zack Olmos MD [address] [place] [address] 25258 PCP - General Family Medicine 08/11/14 Make Up Operator Relationship Specialty Start Date End Date Zack Olmos MD [address] [place] [address] 53914 PCP - General Family Medicine 08/11/14 Make Up Operator Relationship Specialty Start Date End Date Zack Olmos MD [address] [place] [address] 20753 PCP - General Family Medicine 08/11/14 Make Up Operator Relationship Specialty Start Date End Date Zack Olmos MD [address] [place] [address] 16335 PCP - General Family Medicine 08/11/14 Make Up Operator Relationship Specialty Start Date End Date Zack Olmos MD [address] [place] [address] 28082 PCP - General Family Medicine 08/11/14 Make Up Operator Relationship Specialty Start Date End Date Zack Olmos MD [address] [place] [address] 89332 PCP - General Family Medicine 08/11/14 Make Up Operator Relationship Specialty Start Date End Date Zack Olmos MD [address] [place] [address] 64495 PCP - General Family Medicine 08/11/14 Make Up Operator Relationship Specialty Start Date End Date Zack Olmos MD [address] [place] [address] 14358 PCP - General Family Medicine 08/11/14 Make Up Operator Relationship Specialty Start Date End Date Zack Olmos MD [address] [place] [address] 60466 PCP - General Family Medicine 08/11/14 Make Up Operator Relationship Specialty Start Date End Date Zack Olmos MD [address] [place] [address] 74992 PCP - General Family Medicine 08/11/14 Make Up Operator Relationship Specialty Start Date End Date Zack Olmos MD [address] [place] [address] 25524 PCP - General Family Medicine 08/11/14 Make Up Operator Relationship Specialty Start Date End Date Zack Olmos MD [address] [place] [address] 47947 PCP - General Family Medicine 08/11/14 Make Up Operator Relationship Specialty Start Date End Date Zack Olmos MD [address] [place] [address] 26273 PCP - General Family Medicine 08/11/14 Make Up Operator Relationship Specialty Start Date End Date Zack Olmos MD [address] [place] [address] 57049 PCP - General Family Medicine 08/11/14 Make Up Operator Relationship Specialty Start Date End Date Zack Olmos MD [address] [place] [address] 42221 PCP - General Family Medicine 08/11/14 Make Up Operator Relationship Specialty Start Date End Date Zack Olmos MD [address] [place] [address] 91290 PCP - General Family Medicine 08/11/14 Make Up Operator Relationship Specialty Start Date End Date Zack Olmos MD [address] [place] [address] 04698 PCP - General Family Medicine 08/11/14 Make Up Operator Relationship Specialty Start Date End Date Zack Olmos MD [address] [place] [address] 44825 PCP - General Family Medicine 08/11/14 Make Up Operator Relationship Specialty Start Date End Date Zack Olmos MD [address] [place] [address] 28461 PCP - General Family Medicine 08/11/14 Make Up Operator Relationship Specialty Start Date End Date Zack Olmos MD [address] [place] [address] 64681 PCP - General Family Medicine 08/11/14 Make Up Operator Relationship Specialty Start Date End Date Zack Olmos MD [address] [place] [address] 43842 PCP - General Family Medicine 08/11/14 Make Up Operator Relationship Specialty Start Date End Date Zack Olmos MD [address] [place] [address] 85491 PCP - General Family Medicine 08/11/14 Make Up Operator Relationship Specialty Start Date End Date Zack Olmos MD [address] [place] [address] 28826 PCP - General Family Medicine 08/11/14 Make Up Operator Relationship Specialty Start Date End Date Zack Olmos MD [address] [place] [address] 33539 PCP - General Family Medicine 08/11/14 Make Up Operator Relationship Specialty Start Date End Date Zack Olmos MD [address] [place] [address] PCP - General Family Medicine 08/11/14 Андрей Pizano MD [address] [facility] [place] [id number] [place] [address] Referring Physician General Surgery 03/22/22 Make Up Operator Relationship Specialty Start Date End Date Zack Olmos MD [address] [place] [address] PCP - General Family Medicine 08/11/14 Lenin Ramirez MD [address] [place] [address] Consulting Physician Interventional Cardiology 04/06/22 Sherry George DO [address] [place] [address] Consulting Physician General Surgery 04/06/22 Андрей Pizano MD [address] [facility] [place] [id number] [place] [address] Referring Physician General Surgery 03/22/22 Make Up Operator Relationship Specialty Start Date End Date Zack Olmos MD [address] [place] [address] PCP - General Family Medicine 08/11/14 Lenin Ramirez MD [address] [place] [address] Consulting Physician Interventional Cardiology 04/06/22 Sherry George DO [address] [place] [address] Consulting Physician General Surgery 04/06/22 Андрей Pizano MD [address] [facility] [place] [id number] [place] [address] Referring Physician General Surgery 03/22/22 Make Up Operator Relationship Specialty Start Date End Date Zack Olmos MD [address] [place] [address] PCP - General Family Medicine 08/11/14 Lenin Ramirez MD [address] [place] [address] Consulting Physician Interventional Cardiology 04/06/22 Sherry George DO [address] [place] [address] Consulting Physician General Surgery 04/06/22 Андрей Pizano MD [address] [facility] [place] [id number] [place] [address] Referring Physician General Surgery 03/22/22 Make Up Operator Relationship Specialty Start Date End Date Zack Olmos MD [address] [place] [address] PCP - General Family Medicine 08/11/14 Lenin Ramirez MD [address] [place] [address] Consulting Physician Interventional Cardiology 04/06/22 Sherry George DO [address] [place] [address] Consulting Physician General Surgery 04/06/22 Андрей Pizano MD [address] [facility] [place] [id number] [place] [address] Referring Physician General Surgery 03/22/22 Make Up Operator Relationship Specialty Start Date End Date Zack Olmos MD [address] [place] [address] PCP - General Family Medicine 08/11/14 Lenin Ramirez MD [address] [place] [address] Consulting Physician Interventional Cardiology 04/06/22 Sherry George DO [address] [place] [address] Consulting Physician General Surgery 04/06/22 Андрей Pizano MD [address] [facility] [place] [id number] [place] [address] Referring Physician General Surgery 03/22/22 Make Up Operator Relationship Specialty Start Date End Date Zack Olmos MD [address] [place] [address] 60595 PCP - General Family Medicine 08/11/14 Lenin Ramirez MD [address] [place] [address] Consulting Physician Interventional Cardiology 04/06/22 Sherry George, DO [address] [place] [address] Consulting Physician General Surgery 04/06/22 Андрей Pizano MD [address] [facility] [place] [id number] [place] [address] Referring Physician General Surgery 03/22/22 Make Up Operator Relationship Specialty Start Date End Date Zack Olmos MD [address] [place] [address] PCP - General Family Medicine 08/11/14 Lenin Ramirez MD [address] [place] [address] Consulting Physician Interventional Cardiology 04/06/22 Sherry George DO [address] [place] [address] Consulting Physician General Surgery 04/06/22 Андрей Pizano MD [address] [facility] [place] [id number] [place] [address] Referring Physician General Surgery 03/22/22 Make Up Operator Relationship Specialty Start Date End Date Zack Olmos MD [address] [place] [address] PCP - General Family Medicine 08/11/14 Lenin Ramirez MD [address] [facility] [address] [place] [address] Consulting Physician Interventional Cardiology 04/06/22 Sherry George DO [address] [place] [address] Consulting Physician General Surgery 04/06/22 Андрей Pizano MD [address] [facility] [place] [id number] [place] [address] Referring Physician General Surgery 03/22/22 Make Up Operator Relationship Specialty Start Date End Date Zack Olmos MD [address] [place] [address] PCP - General Family Medicine 08/11/14 Lenin Ramirez MD [address] [facility] [address] [place] [address] Consulting Physician Interventional Cardiology 04/06/22 Sherry George DO [address] [place] [address] Consulting Physician General Surgery 04/06/22 Андрей Pizano MD [address] [facility] [place] [id number] [place] [address] Referring Physician General Surgery 03/22/22 Make Up Operator Relationship Specialty Start Date End Date Zack Olmos MD [address] [place] [address] PCP - General Family Medicine 08/11/14 Lenin Ramirez MD [address] [place] [address] Consulting Physician Interventional Cardiology 04/06/22 Sherry George DO [address] [place] [address] Consulting Physician General Surgery 04/06/22 Андрей Pizano MD [address] [facility] [place] [facility] [id number] [place] [address] Referring Physician General Surgery 03/22/22 Make Up Operator Relationship Specialty Start Date End Date Zack Olmos MD [address] [place] [address] PCP - General Family Medicine 08/11/14 Lenin Ramirez MD [address] [place] [address] Consulting Physician Interventional Cardiology 04/06/22 Sherry George DO [address] [place] [address] Consulting Physician General Surgery 04/06/22 Андрей Pizano MD [address] [facility] [place] [id number] [place] [address] Referring Physician General Surgery 03/22/22 Make Up Operator Relationship Specialty Start Date End Date Zack Olmos MD [address] [place] [address] PCP - General Family Medicine 08/11/14 Lenin Ramirez MD [address] [place] [address] Consulting Physician Interventional Cardiology 04/06/22 Sherry George DO [address] [place] [address] Consulting Physician General Surgery 04/06/22 Андрей Pizano MD [address] [facility] [place] [id number] [place] [address] Referring Physician General Surgery 03/22/22 Make Up Operator Relationship Specialty Start Date End Date Zack Olmos MD [address] [place] [address] PCP - General Family Medicine 08/11/14 Lenin Ramirez MD [address] [place] [address] Consulting Physician Interventional Cardiology 04/06/22 Sherry George DO [address] [place] [address] Consulting Physician General Surgery 04/06/22 Андрей Pizano MD [address] [facility] [place] [id number] [place] [address] Referring Physician General Surgery 03/22/22 Make Up Operator Relationship Specialty Start Date End Date Zack Olmos MD [address] [place] [address] PCP - General Family Medicine 08/11/14 Lenin Ramirez MD [address] [facility] [address] [place] [address] Consulting Physician Interventional Cardiology 04/06/22 Sherry George DO [address] [place] [address] Consulting Physician General Surgery 04/06/22 Андрей Pizano MD [address] [facility] [place] [id number] [place] [address] Referring Physician General Surgery 03/22/22 Make Up Operator Relationship Specialty Start Date End Date Zack Olmos MD [address] [place] [address] PCP - General Family Medicine 08/11/14 Lenin Ramirez MD [address] [facility] [address] [place] [address] Consulting Physician Interventional Cardiology 04/06/22 Sherry George DO [address] [place] [address] Consulting Physician General Surgery 04/06/22 Андрей Pizano MD [address] [facility] [place] [id number] [place] [address] Referring Physician General Surgery 03/22/22 Make Up Operator Relationship Specialty Start Date End Date Zack Olmos MD [address] [place], [place] [address] PCP - General Family Medicine 08/11/14 Lenin Ramirez MD [address] [facility] [address] [place] [address] Consulting Physician Interventional Cardiology 04/06/22 Sherry George DO [address] [place] [address] Consulting Physician General Surgery 04/06/22 Андрей Pizano MD [address] [facility] [place] [id number] [place] [address] Referring Physician General Surgery 03/22/22 Make Up Operator Relationship Specialty Start Date End Date Zack Olmos MD [address] [place] [address] PCP - General Family Medicine 08/11/14 Lenin Ramirez MD [address] [place] [address] Consulting Physician Interventional Cardiology 04/06/22 Sherry George DO [address] [place] [address] Consulting Physician General Surgery 04/06/22 Андрей Pizano MD [address] [facility] [place] [id number] [place] [address] Referring Physician General Surgery 03/22/22 Make Up Operator Relationship Specialty Start Date End Date Zack Olmos MD [address] [place] [address] PCP - General Family Medicine 08/11/14 Lenin Ramirez MD [address] [place] [address] Consulting Physician Interventional Cardiology 04/06/22 Sherry George DO [address] [place] [address] Consulting Physician General Surgery 04/06/22 Андрей Pizano MD [address] [facility] [place] [id number] [place] [address] Referring Physician General Surgery 03/22/22 Make Up Operator Relationship Specialty Start Date End Date Zack Olmos MD [address] [place] [address] PCP - General Family Medicine 08/11/14 Lenin Ramirez MD [address] [place] [address] Consulting Physician Interventional Cardiology 04/06/22 Sherry George DO [address] [place] [address] Consulting Physician General Surgery 04/06/22 Андрей Pizano MD [address] [facility] Out[facility] [place] [id number] [place] [address] Referring Physician General Surgery 03/22/22 Make Up Operator Relationship Specialty Start Date End Date Zack Olmos MD [address] [place] [address] PCP - General Family Medicine 08/11/14 Lenin Ramirez MD [address] [place] [address] Consulting Physician Interventional Cardiology 04/06/22 Sherry George DO [address] [place] [address] Consulting Physician General Surgery 04/06/22 Андрей Pizano MD [address] [facility] Out[facility] [place] [id number] [place] [address] Referring Physician General Surgery 03/22/22 Make Up Operator Relationship Specialty Start Date End Date Zack Olmos MD [address] [place] [address] PCP - General Family Medicine 08/11/14 Lenin Ramirez MD [address] [facility] [address] [place] [address] Consulting Physician Interventional Cardiology 04/06/22 Sherry George DO [address] [place] [address] Consulting Physician General Surgery 04/06/22 Андрей Pizano MD [address] [facility] Out[facility] [place] [id number] [place] [address] Referring Physician General Surgery 03/22/22 Make Up Operator Relationship Specialty Start Date End Date Zack Olmos MD [address] [place] [address] PCP - General Family Medicine 08/11/14 Lenin Ramirez MD [address] [facility] [address] [place] [address] Consulting Physician Interventional Cardiology 04/06/22 Sherry George DO [address] [place] [address] Consulting Physician General Surgery 04/06/22 Андрей Pizano MD [address] [facility] Out[facility] [place] [id number] [place] [address] Referring Physician General Surgery 03/22/22 Make Up Operator Relationship Specialty Start Date End Date Zack Olmos MD [address] [place] [address] PCP - General Family Medicine 08/11/14 Lenin Ramirez MD [address] [place] [address] Consulting Physician Interventional Cardiology 04/06/22 Sherry George DO [address] [place] [address] Consulting Physician General Surgery 04/06/22 Андрей Pizano MD [address] [facility] [place] [id number] [place] [address] Referring Physician General Surgery 03/22/22 Make Up Operator Relationship Specialty Start Date End Date Zack Olmos MD [address] [place] [address] PCP - General Family Medicine 08/11/14 Lenin Ramirez MD [address] [facility] [address] [place] [address] Consulting Physician Interventional Cardiology 04/06/22 Sherry George DO [address] [place] [address] Consulting Physician General Surgery 04/06/22 Андрей Pizano MD [address] [facility] Out[facility] [place] [id number] [place] [address] Referring Physician General Surgery 03/22/22 Make Up Operator Relationship Specialty Start Date End Date Zack Olmos MD [address] [place] [address] PCP - General Family Medicine 08/11/14 Lenin Ramirez MD [address] [facility] [address] [place] [address] Consulting Physician Interventional Cardiology 04/06/22 Sherry George DO [address] [place] [address] Consulting Physician General Surgery 04/06/22 Андрей Pizano MD [address] [facility] Out[facility] [place] [id number] [place] [address] Referring Physician General Surgery 03/22/22 Make Up Operator Relationship Specialty Start Date End Date Zack Olmos MD [address] [place] [address] PCP - General Family Medicine 08/11/14 Lenin Ramirez MD [address] [facility] [address] [place] [address] Consulting Physician Interventional Cardiology 04/06/22 Sherry George DO [address] [place] [address] Consulting Physician General Surgery 04/06/22 Андрей Pizano MD [address] [facility] Out[facility] [place] [id number] [place] [address] Referring Physician General Surgery 03/22/22 Make Up Operator Relationship Specialty Start Date End Date Zack Olmos MD [address] [place] [address] PCP - General Family Medicine 08/11/14 Lenin Ramirez MD [address] [facility] [address] [place] [address] Consulting Physician Interventional Cardiology 04/06/22 Sherry George DO [address] [place] [address] Consulting Physician General Surgery 04/06/22 Андрей Pizano MD [address] [facility] Outpatient [place] [id number] [place] [address] Referring Physician General Surgery 03/22/22 Make Up Operator Relationship Specialty Start Date End Date Zack Olmos MD [address] [place], [place] [id number] PCP - General Family Medicine 08/11/14 Lenin Ramirez MD [address] [facility] [address] [place] [address] Consulting Physician Interventional Cardiology 04/06/22 Sherry George DO [address] [place] [address] Consulting Physician General Surgery 04/06/22 Андрей Pizano MD [address] [facility] Outpatient [place] [id number] [place] [address] Referring Physician General Surgery 03/22/22 Make Up Operator Relationship Specialty Start Date End Date Zack Olmos MD [address] [place] [address] PCP - General Family Medicine 08/11/14 Lenin Ramirez MD [address] [facility] [address] [place] [address] Consulting Physician Interventional Cardiology 04/06/22 Sherry George DO [address] [place] [address] Consulting Physician General Surgery 04/06/22 Андрей Pizano MD [address] [facility] Outpatient [place] [id number] [place] [address] Referring Physician General Surgery 03/22/22 Make Up Operator Relationship Specialty Start Date End Date Zack Olmos MD [address] [place] [address] PCP - General Family Medicine 08/11/14 Lenin Ramirez MD [address] [place] [address] Consulting Physician Interventional Cardiology 04/06/22 Sherry George DO [address] [place] [address] Consulting Physician General Surgery 04/06/22 Андрей Pizano MD [address] [facility] Out[facility] [place] [id number] [place] [address] Referring Physician General Surgery 03/22/22 Make Up Operator Relationship Specialty Start Date End Date Zack Olmos MD [address] [place] [address] PCP - General Family Medicine 08/11/14 Lenin Ramirez MD [address] [place] [address] Consulting Physician Interventional Cardiology 04/06/22 Sherry George DO [address] [place] [address] Consulting Physician General Surgery 04/06/22 Андрей Pizano MD [address] [facility] Out[facility] [place] [id number] [place] [address] Referring Physician General Surgery 03/22/22 Make Up Operator Relationship Specialty Start Date End Date Zack Olmos MD [address] [place] [address] PCP - General Family Medicine 08/11/14 Lenin Ramirez MD [address] [facility] [address] [place] [address] Consulting Physician Interventional Cardiology 04/06/22 Sherry George DO [address] [place] [address] Consulting Physician General Surgery 04/06/22 Андрей Pizano MD [address] [facility] Out[facility] [place] [id number] [place] [address] Referring Physician General Surgery 03/22/22 Make Up Operator Relationship Specialty Start Date End Date Zack Olmos MD [address] [place], [place] [id number] PCP - General Family Medicine 08/11/14 Lenin Ramirez MD [address] [facility] [address] [place] [address] Consulting Physician Interventional Cardiology 04/06/22 Sherry George DO [address] [place] [address] Consulting Physician General Surgery 04/06/22 Андрей Pizano MD [address] Outpatient [place] [id number] [place] [address] Referring Physician General Surgery 03/22/22 Make Up Operator Relationship Specialty Start Date End Date Zack Olmos MD [address] [place], [place] [id number] PCP - General Family Medicine 08/11/14 Lenin Ramirez MD [address] [place] [address] Consulting Physician Interventional Cardiology 04/06/22 Sherry George DO [address] [place] [address] Consulting Physician General Surgery 04/06/22 Андрей Pizano MD [address] Outpatient [place] [id number] [place] [address] Referring Physician General Surgery 03/22/22 Make Up Operator Relationship Specialty Start Date End Date Zack Olmos MD [address] [place] [address] PCP - General Family Medicine 08/11/14 Lenin Ramirez MD [address] [place] [address] Consulting Physician Interventional Cardiology 04/06/22 Sherry George DO [address] [place] [address] Consulting Physician General Surgery 04/06/22 Андрей Pizano MD [address] Outpatient [place] [id number] [place] [address] Referring Physician General Surgery 03/22/22 Make Up Operator Relationship Specialty Start Date End Date Zack Olmos MD [address] [place] [address] PCP - General Family Medicine 08/11/14 Lenin Ramirez MD [address] [facility] [address] [place] [address] Consulting Physician Interventional Cardiology 04/06/22 Sherry George DO [address] [place] [address] Consulting Physician General Surgery 04/06/22 Андрей Pizano MD [address] Outpatient [place] [id number] [place] [address] Referring Physician General Surgery 03/22/22 Make Up Operator Relationship Specialty Start Date End Date Zack Olmos MD [address] [place] [address] PCP - General Family Medicine 08/11/14 Lenin Ramirez MD [address] [facility] [address] [place] [address] Consulting Physician Interventional Cardiology 04/06/22 Sherry George DO [address] [place] [address] Consulting Physician General Surgery 04/06/22 Андрей Pizano MD [address] Outpatient [place] [id number] [place] [address] Referring Physician General Surgery 03/22/22 FOR RECORDS [...] BE BASED ON THE PRIMARY CLINICAL RECORDS. [facility]. provides no warranty or guarantee of the accuracy or completeness of information in this document.
[2023-04-18] MEDS: Atorvastatin Calcium 20 MG Tablet PO (23:44)
[2023-04-18] MEDS: guaiFENesin/D-Methorphan TAB.SR.12H 1 TABLET PO (23:44)
[2023-04-18] MEDS: Heparin Injection (Vial) 5,000 UNIT/ML VIAL 5000 UNIT SC (23:45)
[2023-04-18] MEDS: Ipratropium 0.5 MG/2.5 ML SOLUTION INHALATION (23:45)
--- NOTE | 2023-04-18 23:57 | CPS ---
Pt. wears CPAP at home. Does not want to wear our machine tonight. Family is bringing in home unit tomorrow, per patient.
[2023-04-19] VITALS (19 sets, daily range): BP systolic 78–265; BP diastolic 33–74; PULSE 73–98; RESP 14–20; TEMP 36.6–36.8; O2SAT 93–99; BMI 27.4; BMI 27.1
[2023-04-19] MEDS: 0.9% Saline Lock 10 ML Syringe IV ×2 (05:54→15:02)
[2023-04-19] MEDS: Levothyroxine 50 MCG Tablet PO (05:54)
[2023-04-19] MEDS: Ipratropium 0.5 MG/2.5 ML SOLUTION INHALATION ×3 (07:13→20:31)
[2023-04-19 08:23] LABS: Absolute Lymphocyte Count 0.31 X10^3/uL (0.83-4.51); Absolute Neutrophil Count 9.4 X10^3/uL (2.0-7.7); Basophil# 0.03 X10^3/uL; Basophil% 0.3 % (0-1); Hematocrit 31.4 % (40-54); Lymphocyte # 0.31 X10^3/ul (0.83-4.51); Lymphocyte % 3.1 % (19-41); Mean Corp Hgb Conc 31.8 g/dL (32-36); Mean Corpuscular Hgb 34.6 pg (27.0-32.0); Mean Corpuscular Volume 108.7 fL (80-94); Mean Platelet Vol. 9.3 fl (6.2-12.0); Monocyte# 0.15 X10^3/uL; Monocyte% 1.5 % (0-10); NRBC Flagged by Analyzer 0 % (0-5); Neutrophil % 94.5 % (47-70); POSITIVE DIFFERENTIAL YES; Platelet Count 123 K/mm3 (150-450); RBC Distribution Width CV 14.8 % (11.6-14.6); RBC Distribution Width SD 59.9 fl (35.1-43.9); Red Blood Count 2.89 M/mm3 (4.6-6.2)
[2023-04-19 08:23] LABS: M R Staph aureus DNA By PCR Negative (Negative); Probe Check PASS; Specimen Processing Control PASS
[2023-04-19] MEDS: PureFlow B 2K Dialysis Soln 1 BAG 6 BAG PF (08:42)
[2023-04-19] MEDS: 0.9% Normal Saline 1,000 ML IV.SOLN. 1000 ML OPERA.SITE (08:42)
[2023-04-19] MEDS: Midodrine HCl 5 MG Tablet 10 MG PO (08:59)
[2023-04-19 09:15] LABS: Anion Gap 7 (5-15); BUN 43 mg/dL (7-18); BUN/Creat Ratio 8.5 RATIO (10-20); Chloride 96 mmol/L (98-107); Creatinine, Serum 5.07 mg/dL (0.70-1.30); EST Glomerular Filtration Rate 12 mL/min (>60); Est Glom Filt Rate - Afr Amer 14 mL/min (>60); Estimated Creatinine Clearance 11.59 ml/min; Glucose 113 mg/dL (74-106); Potassium 5.4 mmol/L (3.5-5.1); Sodium Level 131 mmol/L (136-145)
--- NOTE | 2023-04-19 10:00 | CASEMGMT ---
HALEY BLANK Assessment Face to Face with patient for initial transition planning/care coordination assessment. HALEY BLANK introduced self and role at [facility], pt voices understanding. Pt is A&Ox4 and is resting comfortably in bed and is calm. Pt is getting dialysis at this time. Care providers, pharmacy, and demographics verified. Admitting dx: Flu with Hypoxia LACE Strata: 2 PCP: Zack Stacy Specialists: James (Cardio). James (Pulm). Pt states he sees a [facility] in [place]. Preferred Pharmacy: [facility] Insurance: [facility] [place] Benefit: Yes LNOK: Janae Gonzalez (W) Living Arrangements: Pt lives with his in a single story home with a basement with handrails with 3 steps to enter the home with a grab bar. ADLs/IADLs: I with ADLs. Pt states his helps with IADLs. Transportation: Pt drives or the pt mormon friends drive him. DME: Pt states he wears O2 at home supplied through [employer]. Pt states he wears 3L continuous and 3L bleed in through his CPAP. Will verify order. Pt has a P. Ox. Pt states he has a portable tank and POC at home and that his will bring this in at time of DC. Pt uses a FWW at home. Pt has an electric scooter. Pt has a walk in shower with grab bars and a shower chair. Pt states he normally sleeps in a lift chair. HHC/SNF: Denies SNF. Pt states that he is active with HHC but could not recall the agency. Pt states it is OK to call the pt to verify this information. Pt states he is seen once per week. Pt also states that he receives dialysis through [facility] on // at 0915. Pt?s goal: Home Plan: Pt 6-Click is 21. Pt states that he wishes to return home with his with the continuation of HHC (SN). Will follow for oxygen and any other further needs. Huey Ozuna RN, CM
[2023-04-19] MEDS: guaiFENesin/D-Methorphan TAB.SR.12H 1 TABLET PO ×2 (10:30→20:44)
[2023-04-19] MEDS: Aspirin E.C. 81 MG Tablet PO (10:30)
[2023-04-19] MEDS: Folic Acid/Vitamin B Comp W-C 1 Capsule 1 CAP PO (10:30)
[2023-04-19] MEDS: Ascorbic Acid 500 MG Tablet PO (10:30)
[2023-04-19] MEDS: Sertraline 100 MG Tablet PO (10:30)
--- NOTE | 2023-04-19 10:52 | PCM.PN.HOSP ---
Reason for Visit Reason for Visit: Diagnoses Unspecified atrial flutter (04/18/23) Chronic obstructive pulmonary disease with (acute) exacerbation (04/18/23) Subjective Subjective Patient is a 77-year-old gentleman with history of end-stage renal disease on hemodialysis admitted with nausea vomiting cough shortness of breath and progressive generalized weakness Objective Data Objective Data Vital Signs: Vital Signs Temp Pulse Resp BP Pulse Ox O2 Del Method O2 Flow Rate 97.9 F 90 14 96/40 L 98 Nasal Cannula 3 04/19/23 05:49 04/19/23 10:27 04/19/23 10:27 04/19/23 10:27 04/19/23 10:27 04/19/23 10:27 04/19/23 10:27 Oxygen Flow Rate (L/min) 3 Oxygen Delivery Method Nasal Cannula Weight: 79.3 kg Body Mass Index (BMI) 27.4 Intake & Output: Intake and Output for Last 24 Hours 04/17/23 04/18/23 04/19/23 23:59 23:59 23:59 Intake Total 100 / 300 450 / 450 Output Total 0 / 0 Balance 100 / 300 450 / 450 Lab / Micro Data 04/19/23 08:05 04/19/23 08:05 Labs: Laboratory Results - last 24 hr 04/18/23 19:58: WBC 11.6 H, RBC 3.17 L, Hgb 10.9 L, Hct 34.3 L, MCV 108.2 H, MCH 34.4 H, MCHC 31.8 L, RDW Std Deviation 58.5 H, RDW Coeff of Nick 14.6, Plt Count 154, MPV 9.3, Immature Gran % (Auto) 0.500, Neut % (Auto) 84.9 H, Lymph % (Auto) 4.2 L, Grand % (Auto) 8.6, Eos % (Auto) 1.0, Baso % (Auto) 0.8, Absolute Neuts (auto) 9.8 H, Absolute Lymphs (auto) 0.49 L, Nucleated RBC % 0, Differential Comment SEE COMMENT, Platelet Estimate ADEQUATE, RBC Morphology N CHROM, Hypochromasia 1+, Anisocytosis 1+, Macrocytosis 1+, Ovalocytes RARE, Sodium 135 L, Potassium 4.8, Chloride 97 L, Carbon Dioxide 31.0, Anion Gap 7, BUN 36 H, Creatinine 4.61 H, Estim Creat Clear Calc 14.36, Est GFR (MDRD) Af Amer 16 L, Est GFR (MDRD) Non-Af 13 L, BUN/Creatinine Ratio 7.8 L, Glucose 127 H, Calcium 9.4, Phosphorus 3.0, Magnesium 2.1, Total Bilirubin 1.00, Direct Bilirubin 0.43 H, AST 23, ALT 30, Alkaline Phosphatase 209 H, Troponin I High Sens 74, Total Protein 7.4, Albumin 3.1 L, Globulin 4.3 H 04/19/23 08:05: WBC 10.0, RBC 2.89 L, Hgb 10.0 L, Hct 31.4 L, MCV 108.7 H, MCH 34.6 H, MCHC 31.8 L, RDW Std Deviation 59.9 H, RDW Coeff of Nick 14.8 H, Plt Count 123 L, MPV 9.3, Immature Gran % (Auto) 0.600, Neut % (Auto) 94.5 H, Lymph % (Auto) 3.1 L, Grand % (Auto) 1.5, Eos % (Auto) 0.0, Baso % (Auto) 0.3, Absolute Neuts (auto) 9.4 H, Absolute Lymphs (auto) 0.31 L, Nucleated RBC % 0, Sodium 131 L, Potassium 5.4 H, Chloride 96 L, Carbon Dioxide 28.0, Anion Gap 7, BUN 43 H, Creatinine 5.07 H, Estim Creat Clear Calc 11.59, Est GFR (MDRD) Af Amer 14 L, Est GFR (MDRD) Non-Af 12 L, BUN/Creatinine Ratio 8.5 L, Glucose 113 H, Calcium 9.0 Micro: Microbiology 04/18/23 20:25 Mucosa - Nose SARS-CoV-2, Influenza & RSV (PCR) - Final Influenzae A Radiography Diagnostic Testing: Radiology Impression Chest X-Ray 04/18/23 20:34 IMPRESSION: Increased interstitial markings may represent edema and/or infection. Cardiomegaly with trace bilateral pleural effusions. Electronically Signed: Rich Juarez MD at 21:42 EST , Physical Exam Narrative GENERAL: cooperative HEENT: Atraumatic; normocephalic EYES; Anicteric, Normal Conjunctiva NECK; supple, normal thyroid, RESPIRATORY: Diminished to auscultation CARDIOVASCULAR: Regular S1 S2, GI: soft, normoactive bowel sounds, : No Renal angle tenderness; EXTREMITIES: No edema, no clubbing, MUSCULOSKELETAL: no muscle wasting NEURO: Awake; no lateralizing signs. SKIN: chronic, superficial ulcer present on the right lower leg, probably venous ulcer. Covered with dressing. PSYCH; Flat affect Assessment & Plan Assessment/Plan (1) Atrial flutter with rapid ventricular response: (2) COPD exacerbation: PLAN: Plan Patient is a 77-year-old gentleman with history of end-stage renal disease on hemodialysis admitted with nausea vomiting cough shortness of breath and progressive generalized weakness 1. Acute influenza A infection ? Patient provide presented with multiple symptoms admitted to a monitored bed for subsequent management 2. COPD with acute exacerbation ? Present stated by acute influenza A bronchitis management bronchodilator treatment systemic steroid antibiotic therapy as well as Tamiflu for his acute influenza A 3. Paroxysmal A-fib with RVR ? Patient currently being monitored in the progressive care unit. Patient is on amiodarone and carvedilol did continue. Patient was previously on Eliquis discontinued due to to GI bleed 4. End-stage renal disease ? 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 Hypothyroidism - Patient is on levothyroxine home dose continued 6. Artery disease ? With previous history of CABG and subsequent stent placement. Patient remains on guideline directed medical therapy 7. Gout ? Symptoms controlled on allopurinol 8. Chronic hypoxic respiratory failure secondary to COPD ? Patient is on 3.5 L at baseline 9. Chronic hypotension ? Patient is on midodrine 10. Acute gastroenteritis ? Secondary to viral gastroenteritis as a result of influenza A treated symptomatically 11. DVT prophylaxis ? SCDs and heparin Time spent in the patient's overall evaluation,decision-making process, review of diagnostic data, adjustment of management, discussion with other providers, nursing nursing and ancillary staff involved in patient's care documentation, 50 Minutes Charges/Coding Visit Charges Inpatient E&M: 43258 [facility] Hosp L3
--- NOTE | 2023-04-19 11:13 | CASEMGMT ---
Addendum entered by Mana Martin 04/19/23 11:23: Per dc cancer genetics assistant, pt was verified to be active with services only. Original Note: TC to pt , she states pt is active with [facility].
[2023-04-19] MEDS: Heparin Injection (Vial) 5,000 UNIT/ML VIAL 5000 UNIT SC ×2 (11:42→20:50)
[2023-04-19] MEDS: Amiodarone 200 MG Tablet 100 MG PO (11:42)
[2023-04-19] MEDS: Allopurinol 100 MG Tablet PO (11:42)
--- NOTE | 2023-04-19 11:42 | PCM.CONS.R ---
Assessment & Plan Assessment/Plan (1) ESRD (end stage renal disease) on dialysis: PLAN: On hemodialysis Monday, Monday, Monday schedule. Usually runs low blood pressure, midodrine. Seen on dialysis, bp is acceptable. Diagnosed with flu. Symptomatically better. Discussed with staff HPI Consult Data Date of Consult: 04/19/23 HPI Narrative Reason for Consultation: ESRD HPI Narrative: ANGIE SINGH, is a 77 M who presents to the hospital with cough, shortness of breath. Nephrology on consultation in view of ESRD. Currently on hemodialysis Monday, Monday, Monday. Last dialysis was Monday. Apparently his has been sick as well. Diagnosed with flu. Seen on dialysis today. Feels better since coming in. [facility] Medical History Abnormal chest CT Anemia Anxiety Arthritis Back pain BPH (benign prostatic hyperplasia) Congestive heart failure (CHF) COPD (chronic obstructive pulmonary disease) COPD (chronic obstructive pulmonary disease) Coronary artery disease involving coronary bypass graft Coronary atherosclerosis of [place] coronary artery CPAP (continuous positive airway pressure) dependence Depression Emphysema, unspecified End-stage renal disease on hemodialysis Erectile dysfunction ESRD (end stage renal disease) Former smoker GERD (gastroesophageal reflux disease) Gout High cholesterol History of atrial fibrillation History of edema History of heart attack HLD (hyperlipidemia) Hypertension Lower GI bleed Lumbar disc disease with radiculopathy Obesity On home oxygen therapy MARCELO (obstructive sleep apnea) Pleural effusion Psychosexual dysfunction with inhibited sexual excitement Sleep apnea Symptomatic anemia Home Medications allopurinol 100 mg tablet 100 mg PO DAILY GOUT 05/03/18 [History Last Taken 04/18/23] nitroglycerin 0.4 mg sublingual tablet 0.4 mg sublingual Q5-15M PRN chest pain 05/03/18 [History Last Taken Unknown] amiodarone 200 mg tablet 100 mg PO DAILY heart 11/19/20 [History Last Taken 04/18/23] rosuvastatin 10 mg tablet (Crestor) 10 mg PO QHS cholesterol 11/19/20 [History Last Taken 04/17/23] ascorbic acid (vitamin C) 500 mg capsule,extended release (Vitamin C) 500 mg PO DAILY supplement 11/23/20 [History Last Taken 04/18/23] gabapentin 100 mg capsule 200 mg PO QHS restless leg 11/04/21 [History Last Taken 04/17/23] midodrine 10 mg tablet 10 mg PO MOWEFR bp 11/04/21 [History Last Taken 03/18/22] levothyroxine 50 mcg tablet 50 mcg PO DAILY thyroid 12/13/21 [History Last Taken 03/18/22] carvedilol 3.125 mg tablet 3.125 mg PO SuTuThSa@1000 #0 tabs 03/23/22 [Rx Last Taken 04/18/23] guaifenesin 600 mg tablet, extended release 12 hr (Mucinex) 600 mg PO BID 06/07/22 [History Last Taken Unknown] albuterol sulfate 2.5 mg/3 mL (0.083 %) solution for nebulization 2.5 mg (3 mL) inhalation 4X/DAY PRN PRN COPD #180 mL 04/04/23 [Rx Last Taken 04/18/23] aspirin 81 mg tablet,delayed release (Adult Aspirin Regimen) 81 mg PO DAILY 04/04/23 [History Last Taken 04/18/23] fluticasone propionate 50 mcg/actuation nasal spray,suspension 2 spray intranasal DAILY PRN ALLERGIES 04/04/23 [History Last Taken Unknown] glycopyrrolate 9 mcg-formoterol 4.8 mcg HFA aerosol inhaler (Bevespi Aerosphere) 2 puff inhalation BID SOB 04/04/23 [History Last Taken Unknown] sertraline 100 mg tablet 100 mg PO DAILY 04/04/23 [History Last Taken Unknown] vitamin B complex-vitamin C-folic acid 0.8 mg tablet (Tawanna-Laura) 1 tab PO Q24H 04/18/23 [History Last Taken Unknown] Allergy/AdvReac Type Severity Reaction Status Date / Time Penicillins Allergy Severe Rash, 105 Verified 04/18/23 19:45 temp amlodipine Allergy itching Verified 04/18/23 19:45 and rash prednisone Allergy Other Verified 04/18/23 19:45 indomethacin AdvReac Intermediate Other Verified 04/18/23 19:45 ropinirole AdvReac Intermediate Other Verified 04/18/23 19:45 trazodone AdvReac Intermediate Other Verified 04/18/23 19:45 aspirin AdvReac Mild rash Verified 04/18/23 19:45 Family History Mother , 84 y.o. Hypertension CVA (cerebral vascular accident) Father , 70 y.o. Heart disease Hodgkin disease Sister , 72 y.o. Heart disease Surgical History H/O left cataract extraction History of cardiac catheterization History of colectomy (~2022) History of colonoscopy History of coronary artery stent placement History of heart artery stent History of heart surgery History of knee replacement procedure of left knee History of open heart surgery (~08/2020) History of total right knee replacement S/P arteriovenous (AV) fistula repair (~12/2020) Social History household members: spouse housing: house pets and animals: No Smoking Status: Former smoker second hand exposure: No alcohol intake: current alcohol intake frequency: holidays/special occasions only ROS ROS Narrative Negative except above Physical Exam Narrative Alert awake oriented x 3 no obvious distress no pallor no icterus no JVD s1s2 no murmurs lungs clear abdomen soft no organomegaly no edema no cyanosis Lab / Micro Data 04/19/23 08:05 04/19/23 08:05 Labs: Laboratory Results - last 24 hr 04/18/23 19:58: WBC 11.6 H, RBC 3.17 L, Hgb 10.9 L, Hct 34.3 L, MCV 108.2 H, MCH 34.4 H, MCHC 31.8 L, RDW Std Deviation 58.5 H, RDW Coeff of Nick 14.6, Plt Count 154, MPV 9.3, Immature Gran % (Auto) 0.500, Neut % (Auto) 84.9 H, Lymph % (Auto) 4.2 L, [place] % (Auto) 8.6, Eos % (Auto) 1.0, Baso % (Auto) 0.8, Absolute Neuts (auto) 9.8 H, Absolute Lymphs (auto) 0.49 L, Nucleated RBC % 0, Differential Comment SEE COMMENT, Platelet Estimate ADEQUATE, RBC Morphology N CHROM, Hypochromasia 1+, Anisocytosis 1+, Macrocytosis 1+, Ovalocytes RARE, Sodium 135 L, Potassium 4.8, Chloride 97 L, Carbon Dioxide 31.0, Anion Gap 7, BUN 36 H, Creatinine 4.61 H, Estim Creat Clear Calc 14.36, Est GFR (MDRD) Af Amer 16 L, Est GFR (MDRD) Non-Af 13 L, BUN/Creatinine Ratio 7.8 L, Glucose 127 H, Calcium 9.4, Phosphorus 3.0, Magnesium 2.1, Total Bilirubin 1.00, Direct Bilirubin 0.43 H, AST 23, ALT 30, Alkaline Phosphatase 209 H, Troponin I High Sens 74, Total Protein 7.4, Albumin 3.1 L, Globulin 4.3 H 04/19/23 08:05: WBC 10.0, RBC 2.89 L, Hgb 10.0 L, Hct 31.4 L, MCV 108.7 H, MCH 34.6 H, MCHC 31.8 L, RDW Std Deviation 59.9 H, RDW Coeff of Nick 14.8 H, Plt Count 123 L, MPV 9.3, Immature Gran % (Auto) 0.600, Neut % (Auto) 94.5 H, Lymph % (Auto) 3.1 L, [place] % (Auto) 1.5, Eos % (Auto) 0.0, Baso % (Auto) 0.3, Absolute Neuts (auto) 9.4 H, Absolute Lymphs (auto) 0.31 L, Nucleated RBC % 0, Sodium 131 L, Potassium 5.4 H, Chloride 96 L, Carbon Dioxide 28.0, Anion Gap 7, BUN 43 H, Creatinine 5.07 H, Estim Creat Clear Calc 11.59, Est GFR (MDRD) Af Amer 14 L, Est GFR (MDRD) Non-Af 12 L, BUN/Creatinine Ratio 8.5 L, Glucose 113 H, Calcium 9.0 Micro: Microbiology 04/18/23 20:25 Mucosa - Nose SARS-CoV-2, Influenza & RSV (PCR) - Final Influenzae A Imaging Radiology Impression Chest X-Ray 04/18/23 20:34 IMPRESSION: Increased interstitial markings may represent edema and/or infection. Cardiomegaly with trace bilateral pleural effusions. Electronically Signed: Rich Juarez MD at 21:42 EST ,
[2023-04-19] MEDS: Nepro with Carbsteady 237 ML Liquid 120 ML PO ×2 (11:43→16:57)
--- NOTE | 2023-04-19 14:53 | CHAPLAIN ---
Type of Pastoral Visit _x__ Initial Visit ___ Follow-up Visit ___ On-call Visit ___ General Patient Visit ___ Spiritual Assessment ___ Family Conference ___ Bereavement ___ Rapid Response ___ Code Blue ___ Other (describe below) Pastoral Care Referral From _x_ Patient ___ Family ___ Nurse ___ Physician ___ Specialty Cook ___ Stevedoring Supervisor ___ Other (describe below) Sacrament/Intervention _x__ Active listening ___ Anointing ___ Holiness ___ Bereavement ___ Communion _x__ Tanisha exploration ___ _x__ Life review _x__ Prayer ___ Reconciliation ___ Sacrament of Sick ___ Supportive presence ___ Wedding ___ Other (describe below) Pastoral Comments patient is talkative and expresses his thanks for being able to talk to someone; pt explains that his is now feeling ill and that his daughter is facing cancer; talked about his feelings and how he is coping with these events and personal needs; discussed some of pt's thoughts on life and tanisha; offer of prayer received and given
--- NOTE | 2023-04-19 20:36 | CPS ---
offered cpap to pt , he stated he's only here one more night. He said he would OK without it. Pt has 3L nasal o2.
[2023-04-19] MEDS: Gabapentin 100 MG Capsule 200 MG PO (20:43)
[2023-04-19] MEDS: Atorvastatin Calcium 20 MG Tablet PO (20:44)
[2023-04-19] MEDS: Oseltamivir Phosphate 30 MG Capsule PO (20:45)
[2023-04-20] VITALS (7 sets, daily range): BP systolic 101–108; BP diastolic 58–77; PULSE 84–101; RESP 16–18; TEMP 35.5–36.7; O2SAT 91–99
[2023-04-20] MEDS: Levothyroxine 50 MCG Tablet PO (06:27)
[2023-04-20] MEDS: 0.9% Saline Lock 10 ML Syringe IV (06:27)
[2023-04-20] MEDS: Ipratropium 0.5 MG/2.5 ML SOLUTION INHALATION ×4 (06:49→14:47)
--- NOTE | 2023-04-20 08:04 | PCM.PN.HOSP ---
Reason for Visit Reason for Visit: Diagnoses Unspecified atrial flutter (04/18/23) Chronic obstructive pulmonary disease with (acute) exacerbation (04/18/23) End stage renal disease (04/18/23) Dependence on renal dialysis (04/18/23) Subjective Subjective Patient seen improved clinically. Plan is for patient to be assessed for possible discharge Objective Data Objective Data Vital Signs: Vital Signs Temp Pulse Resp BP Pulse Ox O2 Del Method O2 Flow Rate 97.3 F L 100 16 102/77 91 Nasal Cannula 3 04/20/23 06:22 04/20/23 06:49 04/20/23 06:49 04/20/23 06:22 04/20/23 06:49 04/20/23 06:49 04/20/23 06:49 Oxygen Flow Rate (L/min) 3 Oxygen Delivery Method Nasal Cannula Weight: 78.6 kg Body Mass Index (BMI) 27.1 Intake & Output: Intake and Output for Last 24 Hours 04/18/23 04/19/23 04/20/23 23:59 23:59 23:59 Intake Total 100 / 300 570 / 570 Output Total 500 / 500 Balance 100 / 300 70 / 70 Lab / Micro Data 04/19/23 08:05 04/19/23 08:05 Labs: Laboratory Results - last 24 hr 04/19/23 05:45: MRSA (PCR) Negative 04/19/23 08:05: WBC 10.0, RBC 2.89 L, Hgb 10.0 L, Hct 31.4 L, MCV 108.7 H, MCH 34.6 H, MCHC 31.8 L, RDW Std Deviation 59.9 H, RDW Coeff of Nick 14.8 H, Plt Count 123 L, MPV 9.3, Immature Gran % (Auto) 0.600, Neut % (Auto) 94.5 H, Lymph % (Auto) 3.1 L, [place] % (Auto) 1.5, Eos % (Auto) 0.0, Baso % (Auto) 0.3, Absolute Neuts (auto) 9.4 H, Absolute Lymphs (auto) 0.31 L, Nucleated RBC % 0, Sodium 131 L, Potassium 5.4 H, Chloride 96 L, Carbon Dioxide 28.0, Anion Gap 7, BUN 43 H, Creatinine 5.07 H, Estim Creat Clear Calc 11.59, Est GFR (MDRD) Af Amer 14 L, Est GFR (MDRD) Non-Af 12 L, BUN/Creatinine Ratio 8.5 L, Glucose 113 H, Calcium 9.0 Micro: Microbiology 04/18/23 20:25 Mucosa - Nose SARS-CoV-2, Influenza & RSV (PCR) - Final Influenzae A Physical Exam Narrative GENERAL: cooperative HEENT: Atraumatic; normocephalic EYES; Anicteric, Normal Conjunctiva NECK; supple, normal thyroid, RESPIRATORY: Diminished to auscultation CARDIOVASCULAR: Regular S1 S2, GI: soft, normoactive bowel sounds, : No Renal angle tenderness; EXTREMITIES: No edema, no clubbing, MUSCULOSKELETAL: no muscle wasting NEURO: Awake; no lateralizing signs. SKIN: chronic, superficial ulcer present on the right lower leg, probably venous ulcer. Covered with dressing. PSYCH; Flat affect Assessment & Plan Assessment/Plan (1) Atrial flutter with rapid ventricular response: (2) COPD exacerbation: PLAN: Plan Patient is a 77-year-old gentleman with history of end-stage renal disease on hemodialysis admitted with nausea vomiting cough shortness of breath and progressive generalized weakness 1. Acute influenza A infection ? Patient provide presented with multiple symptoms admitted to a monitored bed for subsequent management 2. COPD with acute exacerbation ? Present stated by acute influenza A bronchitis management bronchodilator treatment systemic steroid antibiotic therapy as well as Tamiflu for his acute influenza A 3. Paroxysmal A-fib with RVR ? Patient currently being monitored in the progressive care unit. Patient is on amiodarone and carvedilol did continue. Patient was previously on Eliquis discontinued due to to GI bleed 4. End-stage renal disease ? 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 Hypothyroidism - Patient is on levothyroxine home dose continued 6. Artery disease ? With previous history of CABG and subsequent stent placement. Patient remains on guideline directed medical therapy 7. Gout ? Symptoms controlled on allopurinol 8. Chronic hypoxic respiratory failure secondary to COPD ? Patient is on 3.5 L at baseline 9. Chronic hypotension ? Patient is on midodrine 10. Acute gastroenteritis ? Secondary to viral gastroenteritis as a result of influenza A treated symptomatically 11. DVT prophylaxis ? SCDs and heparin Time spent in the patient's overall evaluation,decision-making process, review of diagnostic data, adjustment of management, discussion with other providers, nursing nursing and ancillary staff involved in patient's care documentation, 35 Minutes
[2023-04-20] MEDS: Nepro with Carbsteady 237 ML Liquid 120 ML PO ×2 (09:04→13:57)
[2023-04-20] MEDS: Heparin Injection (Vial) 5,000 UNIT/ML VIAL 5000 UNIT SC (09:05)
[2023-04-20] MEDS: Folic Acid/Vitamin B Comp W-C 1 Capsule 1 CAP PO (09:05)
[2023-04-20] MEDS: Allopurinol 100 MG Tablet PO (09:05)
[2023-04-20] MEDS: Carvedilol 3.125 MG TABLET PO (09:05)
[2023-04-20] MEDS: Sertraline 100 MG Tablet PO (09:05)
[2023-04-20] MEDS: guaiFENesin/D-Methorphan TAB.SR.12H 1 TABLET PO (09:05)
[2023-04-20] MEDS: Aspirin E.C. 81 MG Tablet PO (09:05)
[2023-04-20] MEDS: Ascorbic Acid 500 MG Tablet PO (09:05)
[2023-04-20] MEDS: Amiodarone 200 MG Tablet 100 MG PO (09:05)
--- NOTE | 2023-04-20 10:58 | PCM.PN.REN ---
Subjective Subjective Sitting in chair. No overnight events. Hopeful to go home today. Objective Data Objective Data Vital Signs: Vital Signs Temp Pulse Resp BP Pulse Ox O2 Del Method O2 Flow Rate 98.1 F 86 16 106/64 96 Nasal Cannula 3 04/20/23 09:01 04/20/23 10:52 04/20/23 10:52 04/20/23 09:01 04/20/23 09:01 04/20/23 09:55 04/20/23 09:55 Oxygen Flow Rate (L/min) 3 Oxygen Delivery Method Nasal Cannula Weight: 78.6 kg Body Mass Index (BMI) 27.1 Intake & Output: Intake and Output for Last 24 Hours 04/18/23 04/19/23 04/20/23 23:59 23:59 23:59 Intake Total 100 / 300 570 / 570 Output Total 500 / 500 Balance 100 / 300 70 / 70 Lab / Micro Data 04/19/23 08:05 04/19/23 08:05 Labs: Laboratory Results - last 24 hr 04/19/23 05:45: MRSA (PCR) Negative Micro: Microbiology 04/18/23 20:25 Mucosa - Nose SARS-CoV-2, Influenza & RSV (PCR) - Final Influenzae A Physical Exam Narrative Alert awake oriented x 3 no obvious distress s1s2 no murmurs lungs clear abdomen soft no edema AV fistula left forearm positive thrill and bruit Assessment & Plan Assessment/Plan (1) ESRD (end stage renal disease) on dialysis: PLAN: On hemodialysis Monday, Monday, Monday schedule. Patient tolerated dialysis yesterday. 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 Next dialysis will be tomorrow. Usually runs low blood pressure, will continue midodrine with HD.
--- NOTE | 2023-04-20 12:39 | DS.PCM_ITS ---
Providers Date of Admission: 04/18/23 Date of Discharge: 04/20/23 Primary Care Physician: Dr. Zack Stacy MD Consultations 04/18/23 22:55 Consult: Nephrology Routine Consulting Provider: Kirsty Ewing Reason for Consult: ESRD on HD, M, W and F EMERGENT Consult: No MD Notified: Yes Date Notified: 04/18/23 Time Notified: 22:55 Method of Notification: Text Reason For Visit: FLU WITH HYPOXIA Diagnosis Discharge Diagnosis (1) Atrial flutter with rapid ventricular response: Status: Acute Code(s): I48.92 - Unspecified atrial flutter (2) COPD exacerbation: Status: Acute Code(s): J44.1 - Chronic obstructive pulmonary disease with (acute) exacerbation Plan Patient is a 77-year-old gentleman with history of end-stage renal disease on hemodialysis admitted with nausea vomiting cough shortness of breath and progressive generalized weakness 1. Acute influenza A infection ? Patient provide presented with multiple symptoms admitted to a monitored bed for subsequent management 2. COPD with acute exacerbation ? Present stated by acute influenza A bronchitis management bronchodilator treatment systemic steroid antibiotic therapy as well as Tamiflu for his acute influenza A 3. Paroxysmal A-fib with RVR ? Patient currently being monitored in the progressive care unit. Patient is on amiodarone and carvedilol did continue. Patient was previously on Eliquis discontinued due to to GI bleed 4. End-stage renal disease ? 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 Hypothyroidism - Patient is on levothyroxine home dose continued 6. Artery disease ? With previous history of CABG and subsequent stent placement. Patient remains on guideline directed medical therapy 7. Gout ? Symptoms controlled on allopurinol 8. Chronic hypoxic respiratory failure secondary to COPD ? Patient is on 3.5 L at baseline 9. Chronic hypotension ? Patient is on midodrine 10. Acute gastroenteritis ? Secondary to viral gastroenteritis as a result of influenza A treated symptomatically 11. DVT prophylaxis ? SCDs and heparin Time spent in the patient's overall evaluation,decision-making process, review of diagnostic data, adjustment of management, discussion with other providers, nursing nursing and ancillary staff involved in patient's care documentation, 35 Minutes Medications at Discharge Home Medications allopurinol 100 mg tablet 100 mg PO DAILY GOUT 05/03/18 nitroglycerin 0.4 mg sublingual tablet 0.4 mg sublingual Q5-15M PRN chest pain 05/03/18 amiodarone 200 mg tablet 100 mg PO DAILY heart 11/19/20 rosuvastatin 10 mg tablet (Crestor) 10 mg PO QHS cholesterol 11/19/20 ascorbic acid (vitamin C) 500 mg capsule,extended release (Vitamin C) 500 mg PO DAILY supplement 11/23/20 gabapentin 100 mg capsule 200 mg PO QHS restless leg 11/04/21 midodrine 10 mg tablet 10 mg PO MOWEFR bp 11/04/21 levothyroxine 50 mcg tablet 50 mcg PO DAILY thyroid 12/13/21 carvedilol 3.125 mg tablet 3.125 mg PO SuTuThSa@1000 #0 tabs 03/23/22 guaifenesin 600 mg tablet, extended release 12 hr (Mucinex) 600 mg PO BID 06/07/22 albuterol sulfate 2.5 mg/3 mL (0.083 %) solution for nebulization 2.5 mg (3 mL) inhalation 4X/DAY PRN PRN COPD #180 mL 04/04/23 aspirin 81 mg tablet,delayed release (Adult Aspirin Regimen) 81 mg PO DAILY 0 04/04/23 fluticasone propionate 50 mcg/actuation nasal spray,suspension 2 spray intranasal DAILY PRN ALLERGIES 04/04/23 glycopyrrolate 9 mcg-formoterol 4.8 mcg HFA aerosol inhaler (Bevespi Aerosphere) 2 puff inhalation BID SOB 04/04/23 sertraline 100 mg tablet 100 mg PO DAILY 04/04/23 vitamin B complex-vitamin C-folic acid 0.8 mg tablet (Tawanna-Laura) 1 tab PO Q24H 04/18/23 oseltamivir 30 mg capsule 30 mg PO 2200 #10 caps 04/20/23 Physical Exam Narrative GENERAL: cooperative HEENT: Atraumatic; normocephalic EYES; Anicteric, Normal Conjunctiva NECK; supple, normal thyroid, RESPIRATORY: Diminished to auscultation CARDIOVASCULAR: Regular S1 S2, GI: soft, normoactive bowel sounds, : No Renal angle tenderness; EXTREMITIES: No edema, no clubbing, MUSCULOSKELETAL: no muscle wasting NEURO: Awake; no lateralizing signs. SKIN: chronic, superficial ulcer present on the right lower leg, probably venous ulcer. Covered with dressing. PSYCH; Flat affect Weight / BMI Weight Weight: 78.6 kg Body Mass Index (BMI) 27.1 ABG / Lab / Microbiology Data 04/19/23 08:05 04/19/23 08:05 Laboratory: Laboratory Results - last 24 hr 04/19/23 05:45: MRSA (PCR) Negative Microbiology: Microbiology 04/18/23 20:25 Mucosa - Nose SARS-CoV-2, Influenza & RSV (PCR) - Final Influenzae A D/C Instructions Discharge Diet: Renal Diet Discharge Activity: Return to Normal Activity Call your doctor if you observe: Fever of 101 or Higher, Shortness of breath, Fainting spells and Chest pain Meaningful Use Info Meaningful Use Diagnoses (Choose all that apply): None applicable Discharge Plan Admission Admit Date/Time: 04/18/23 21:59 Attending Provider: Sachin Ulloa Primary Care Provider: Zack Stacy Consulting Providers: Kirsty Ewing; Bronson Mckeon Discharge Orders/Prescriptions Prescriptions: New oseltamivir 30 mg Capsule 30 mg PO 2200 Qty: 10 0RF Continued allopurinol 100 mg tablet 100 mg PO DAILY nitroglycerin 0.4 mg tablet, sublingual 0.4 mg SUBLINGUAL Q5-15M PRN (Reason: chest pain) amiodarone 200 mg tablet 100 mg PO DAILY rosuvastatin [Crestor] 10 mg tablet 10 mg PO QHS gabapentin 100 mg capsule 200 mg PO QHS midodrine 10 mg tablet 10 mg PO MOWEFR Patient Comments: per patient he takes before dialysis Rx Instructions: do not give last dose of day after 6PM or within 4 hrs of bedtime guaifenesin [Mucinex] 600 mg tablet extended release 12hr 600 mg PO BID fluticasone propionate 50 mcg/actuation spray,suspension 2 spray INTRANASAL DAILY PRN (Reason: ALLERGIES) Bevespi Aerosphere 9-4.8 mcg HFA aerosol inhaler 2 puff INHALATION BID sertraline 100 mg tablet 100 mg PO DAILY Patient Comments: TAKE 1 TABLET BY MOUTH ONCE DAILY aspirin [Adult Aspirin Regimen] 81 mg tablet,delayed release (DR/EC) 81 mg PO DAILY albuterol sulfate 2.5 mg /3 mL (0.083 %) solution for nebulization 2.5 mg inhalation 4X/DAY PRN PRN (Reason: COPD) Qty: 180 6RF ascorbic acid (vitamin C) [Vitamin C] 500 mg Capsule, Extended Release 500 mg PO DAILY levothyroxine 50 mcg tablet 50 mcg PO DAILY carvedilol 3.125 mg Tablet 3.125 mg PO SuTuThSa@1000 Qty: 0 0RF Tawanna-Laura 0.8 mg tablet 1 tab PO Q24H Patient Comments: TAKE 1 TABLET BY MOUTH ONCE DAILY Referrals / Follow Up: Zack Stacy MD [Primary Care Provider] - Disposition Disposition (needs filled in before D/C Order can be placed): Home Health Service Charges/Coding Visit Charges Inpatient E&M: 61577 Disch Hosp >30min
--- NOTE | 2023-04-20 16:08 | CASEMGMT ---
Addendum entered and electronically signed by Geno Uribe RN 04/20/23 16:17: DC instructions and DINORAH order sent via [facility] to [facility] for DINORAH. HALEY Coelho Original Note: HALEY BLANK F/U: This RN CM met with pt and at bedside. Pt states he continues to plan to return home with resumption of [facility] for SN services. Pt states he has his home O2, noted pt on 3l/min at this time and pt states he wears 3l/min at home. PT denies any additional DC needs. Plan: Home with support of spouse, home O2, and [facility] SN DINORAH HALEY Coelho
== END 2023-04-20 16:57 | disposition home health service (06) | DRG 190 ==
LOC: ED 22:02 → PCU 22:41
PROVIDERS: Admitting Provider Internal Medicine; Emergency Provider Student in an Organized Health Care Education/Training Program; PCP Family Medicine; Visit Provider Internal Medicine
DX: J44.1 Chronic obstructive pulmonary disease with (acute) exacerbation (principal); N18.6 End stage renal disease; I13.2 Hypertensive heart and chronic kidney disease with heart failure and with stage 5 chronic kidney disease, or end stage renal disease; I48.20 Chronic atrial fibrillation, unspecified; I48.92 Unspecified atrial flutter; J96.11 Chronic respiratory failure with hypoxia; L97.919 Non-pressure chronic ulcer of unspecified part of right lower leg with unspecified severity; I95.89 Other hypotension; I50.9 Heart failure, unspecified; Z99.2 Dependence on renal dialysis; I48.0 Paroxysmal atrial fibrillation; E03.9 Hypothyroidism, unspecified; F32.A Depression, unspecified; J10.1 Influenza due to other identified influenza virus with other respiratory manifestations; I25.10 Atherosclerotic heart disease of native coronary artery without angina pectoris; E78.00 Pure hypercholesterolemia, unspecified; M10.9 Gout, unspecified; I25.2 Old myocardial infarction; F41.9 Anxiety disorder, unspecified; J20.9 Acute bronchitis, unspecified; G47.33 Obstructive sleep apnea (adult) (pediatric); Z87.891 Personal history of nicotine dependence; Z95.5 Presence of coronary angioplasty implant and graft; Z79.82 Long term (current) use of aspirin; A08.4 Viral intestinal infection, unspecified; Z99.81 Dependence on supplemental oxygen; Z95.1 Presence of aortocoronary bypass graft; Z99.89 Dependence on other enabling machines and devices; Z98.42 Cataract extraction status, left eye; Z90.49 Acquired absence of other specified parts of digestive tract; Z96.653 Presence of artificial knee joint, bilateral; Z85.038 Personal history of other malignant neoplasm of large intestine; Z79.899 Other long term (current) drug therapy; Z79.51 Long term (current) use of inhaled steroids
CPT/HCPCS: 36415; 71045; 80048; 80076; 83735; 84100; 84484; 85025; 87040; 87631; 87641; 90937; 93005; 94640; 94668; 94762; 97162; 97166; 97802; 99285; J7030; A4216; G0257; J2405

== ENCOUNTER 2023-04-22 14:22 | Inpatient (IN) | payer MEDICARE, OTHER, SELFPAY ==
[2023-04-22] VITALS (33 sets, daily range): BP systolic 89–114; BP diastolic 49–80; PULSE 82–106; RESP 12–26; TEMP 36.6–37.2; O2SAT 74–100; BMI 29.4; BMI 29.2
[2023-04-22 14:58] LABS: Allen Test Positive; Base Excess 5 mmol/L (-2 to +2); Bicarbonate 30.6 mmol/L (22-26); Blood Gas Specimen Type ART; Mode Not entered; O2 Delivery Device HFNC; PO2 89 mmHG (75-100); SITE R Radial; SO2 96 % (95-99); Total Carbon Dioxide 32 mmol/L; pCO2 53.2 mmHg (35-45); pH 7.37 (7.35-7.45)
--- OUTSIDE RECORDS SUMMARY | 2023-04-22 14:58 | XMS RPT_ITS | CCD ---
Author Name Unknown Address [address] [place] [address] Organization [facility] Care Team Providers Care Acupressurist Name Role Phone Zack Olmos Unavailable Raven Osullivan Unavailable Unavailable Zack Olmos Primary Care Provider Elise Justice Unavailable Unavailable Zack Olmos Primary Care Provider Zakc Olmos MD Primary Care Provider Zack Olmos MD Primary Care Provider MYRA RIOS Attending Unavailable MYRA RIOS Referring Unavailable ZACK OLMOS Primary Care Unavailable LNEIN RAMIREZ Referring Unavaila LENIN Puckett Attending Unavaila ZACK Carbajal Primary Care Unavailable Zack Olmos MD Primary Care Provider Lenin Ramirez MD Unavailable Sherry George DO Unavailable ZACK OLMOS Primary [...] Therapy Services Unavailable Laith GONZALEZ, Dr. Rivera ([facility]) A Unavail able Orthopedic Provider Unavailable Unavailable Miranda GONZALEZ, Dr. Echevarria Unavailable Medicine [facility], Pulmonary Unavailable Cardiology Provider Unavailable Unavailable Garrett GONZALEZ, Dr. Fulton Unavailable Dr. Riley Victor MD Unavailable James GONZALEZ, Dr. García Unavailable Emilie COSTA, Farideh Unavailable Vascular Surgeon Unavailable Unavailable Luiz GONZALEZ, Rosy Gonsales Unavailable Jose CLASS B TRUCK DRIVER, Pilar Unavailable Unavailable Elbert CLASS B TRUCK DRIVER, Laura E Unavailable Unavailable Jose Alberto CLASS B TRUCK DRIVER, Lesley C Unavailable Unavailable Corcoran CLASS B TRUCK DRIVER, Johnny Unavailable Unavailable Sanjeev GONZALEZ, Donaldo Herrera Unavailable Keenan MC, Edgar Gonsales Unavailable Keenan RN, Vania L Unavailable Unavail able Won CLASS B TRUCK DRIVER, Varsha Unavailable Unavailable Popeye DE LEON, Umu Herrera Unavailable Unavaila ble Marthey CLASS B TRUCK DRIVER, Lien Unavailable Unavailable Cedric CLASS B TRUCK DRIVER, Sravan Unavailable Unavailable Mutersbaugh CLASS B TRUCK DRIVER, Rachel K Unavailable Unavai toya CORRALC, Yarely J Unavailable Konrad BLUEPRINT CUTTER, Randi Unavailable Unavailable Isac CLASS B TRUCK DRIVER, Alejandrina L Unavailable Unavailab le Corby CLASS B TRUCK DRIVER, Rosy M Unavailable Unavailab le Cary CLASS B TRUCK DRIVER, Muna Engel Unavailable Unavailab angelita Obrien MA, Varsha Unavailable Unavailable Kelly GONZALEZ, Tip Herrera Unavailable [phone] Wedannielleerd CLASS B TRUCK DRIVER, Sandra Unavailable Unavailabl e Partha CLASS B TRUCK DRIVER, Marisela N Unavailable Unavaila ble Zaugg CLASS B TRUCK DRIVER, Raven Unavailable Unavailable Unavailable Unavailable SHERRY GEORGE [...] (10 sources) amLODIPine Drug Allergy 0 Itching [facility] Aspirin (10 sources) Aspirin Drug Allergy 5 [facility] Corticosteroids (7 sources) predniSONE Drug Allergy 1 [facility] Penicillins (antibiotic) (10 sources) Penicillins Drug Allergy 5 Other (See Comments) [facility] (20 sources) aspirin; Translations: [EC ASPIRIN] Propensity to adverse reactions to drug 5 [facility] (20 sources) Penicillins; Translations: [PENICILLINS] Propensity to adverse reactions to drug 5 Other (See Comments) [facility] (20 sources) amLODIPine; Translations: [AMLODIPINE] Drug Allergy 0 Itching [facility] (20 sources) Penicillins; Translations: [penicillins] Propensity to adverse reactions to drug 5 Other (See Comments), Prednisone (substance) [facility] (20 sources) predniSONE; Translations: [PREDNISONE] Drug Allergy 1 Other (See Comments) [facility] (20 sources) Penicillins Propensity to adverse reactions to drug 5 Other (See Comments) [facility] (20 sources) oxyCODONE; Translations: [OXYCODONE] Drug Allergy 3 GI Intolerance [facility] (17 sources) Aspirin; Translations: [aspirin] Drug Allergy [facility] (1 source) Indomethacin; Translations: [indomethacin] [facility] Allergy [facility] (1 source) rOPINIRole; Translations: [ropinirole] Drug Allergy [facility] (1 source) traZODone; Translations: [trazodone] Drug Allergy [facility] (1 source) amLODIPine Drug Allergy [facility] (1 source) Penicillin Drug Allergy [facility] (1 source) predniSONE Drug Allergy [facility] (1 source) Coating on Aspirin Drug allergy (disorder) [facility] (16 sources) Penicillin V Drug Allergy [facility], [facility]. 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[place] artery; Translations: [Atherosclerotic heart disease of [place] coronary artery without angina pectoris] Onset: 5 12-30-2014 Chronic Deficiency and other anemia (20 sources) Anemia; Translations: [Anemia, unspecified] 11-30-2022 Episodic [...] 11-30-2022 Episodic Genitourinary symptoms and ill-defined conditions (20 sources) Proteinuria; Translations: [Proteinuria, unspecified] 01-24-2012 Episodic Gout and other crystal arthropathies (20 sources) Gout; Translations: [Gout, unspecified] 11-30-2022 Chronic Hemorrhoids (16 sources) Hemorrhoids; Translations: [Unspecified hemorrhoids] 09-16-2016 Episodic Hyperplasia of prostate (20 sources) Benign prostatic hypertrophy with outflow obstruction; Translations: [Benign prostatic hyperplasia with lower urinary tract symptoms] 11-30-2022 Chronic Immunizations and screening for infectious disease (20 sources) Needs influenza immunization; Translations: [Encounter for immunization] 07-06-2021 Episodic Malaise and fatigue (18 sources) Asthenia; Translations: [Weakness] Episodic Malignant neoplasm [...] depressive disorder, recurrent, unspecified] 11-30-2022 Chronic Mycoses (20 sources) Tinea corporis; Translations: [Tinea corporis] 06-16-2017 Episodic Nausea and vomiting (1 source) Nausea and vomiting; Translations: [Nausea with vomiting, unspecified] Episodic Nonspecific chest pain (16 sources) Chest pain; Translations: [Chest pain, unspecified] 03-24-2014 Episodic Osteoarthritis (20 sources) Osteoarthrosis, localized, primary, lower leg 01-29-2013 Chronic Other aftercare (20 sources) Patient encounter status; Translations: [Encounter for [...] aftercare (20 sources) Drug indicated; Translations: [Other penitentiary (current) drug therapy] 07-06-2021 Episodic Other aftercare (20 sources) Post-discharge follow-up; Translations: [Encounter for follow-up examination after completed treatment for conditions other than malignant neoplasm] 11-30-2022 Episodic Other circulatory disease (1 source) Low blood pressure; Translations: [Hypotension, unspecified] Episodic Other circulatory disease (20 sources) Low blood pressure reading; Translations: [Nonspecific low blood-pressure reading] 11-30-2022 Episodic Other connective tissue disease (16 sources) Muscle pain; Translations: [Myalgia, unspecified site] 03-24-2014 Episodic Other connective tissue disease (20 sources) Pain in right hand; Translations: [Pain in right hand] 03-05-2013 Episodic Other connective tissue disease (16 sources) Tendinitis of elbow or forearm; Translations: [Other enthesopathies, not elsewhere classified] 02-18-2013 Episodic Other connective tissue disease (16 sources) Rotator cuff impingement syndrome; Translations: [Unspecified rotator cuff tear or rupture of unspecified shoulder, not specified as traumatic] 10-18-2011 Episodic Other hereditary and degenerative nervous system conditions (20 sources) Restless legs; Translations: [Restless legs syndrome] 11-30-2022 Chronic Other injuries and conditions due to external causes (20 sources) Injury of head; Translations: [Unspecified injury [...] right knee] Episodic Other non-traumatic joint disorders (16 sources) Pain in right shoulder; Translations: [Pain [...] Onset: 3 09-09-2022 Episodic Other skin disorders (16 sources) Disorder of elbow; Translations: [Localized swelling, [...] [Localized edema] 07-06-2021 Episodic Residual codes; unclassified (20 sources) History of colectomy; Translations: [Acquired absence of other specified parts of digestive tract] 11-30-2022 Episodic Residual codes; unclassified (20 sources) Insomnia; Translations: [Insomnia, unspecified] 11-30-2022 Episodic Residual codes; unclassified (20 sources) History of partial resection of colon; Translations: [Acquired absence of other specified parts of digestive tract] 05-12-2022 Episodic Residual codes; unclassified (16 sources) Influenza vaccination declined; Translations: [Immunization not carried out because of patient refusal] 12-21-2015 Episodic Septicemia (except in labor) (20 sources) Sepsis; Translations: [Sepsis, unspecified organism] Episodic [...] encounter status; Translations: [Therapeutic drug monitoring] Unclassified (16 sources) 07-06-2021 Unclassified (1 source) Other ventricular [...] 11-23-2021 Episodic Other aftercare (6 sources) 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, [facility]. 03-30-2023 10:36-0500 Diastolic blood pressure 56 mm[Hg] Sravan Steele LPN [facility], [facility]. 03-30-2023 10:36-0500 Heart rate 73 /min Sravan Steele LPN [facility] 03-30-2023 10:36-0500 Systolic blood pressure 83 mm[Hg] Sravan Steele LPN [facility]. 12-22-2022 09:58-0400 Body temperature 97.59 [degF] Андрей Claros RN [facility] 12-22-2022 09:58-0400 Diastolic blood pressure 62 mm[Hg] Андрей Claros RN [facility] 12-22-2022 09:58-0400 Heart rate 74 /min Андрей Clarso RN [facility] 12-22-2022 09:58-0400 Respiratory rate 14 /min Андрей Claros RN [facility] 12-22-2022 09:58-0400 SaO2% (BldA) [Mass fraction] 90 % Андрей Claros RN [facility] 12-22-2022 09:58-0400 Systolic blood pressure 102 mm[Hg] Андрей Claros RN [facility] 12-15-2022 09:14-0400 Body temperature 98.1 [degF] Андрей Claros RN [facility] 12-15-2022 09:14-0400 Diastolic blood pressure 68 mm[Hg] Андрей Claros RN [facility] 12-15-2022 09:14-0400 Heart rate 76 /min Андрей Claros RN [facility] 12-15-2022 09:14-0400 Respiratory rate 16 /min Андрей Claros RN [facility] 12-15-2022 09:14-0400 SaO2% (BldA) [Mass fraction] 98 % Андрей Claros RN [facility] 12-15-2022 09:14-0400 Systolic blood pressure 112 mm[Hg] Андрей Claros RN [facility] 12-06-2022 13:42-0400 Body height 170.2 cm Sherry George DO Work Phone: [facility] 12-06-2022 13:42-0400 Body mass index (BMI) [Ratio] 26.63 kg/m2 Sherry George DO Work Phone: [facility] 12-06-2022 13:42-0400 Body weight 77.11 kg Sherry George DO Work Phone: [facility] 12-06-2022 13:42-0400 Diastolic blood pressure 56 mm[Hg] Sherry George DO Work Phone: [facility] 12-06-2022 13:42-0400 Heart rate 71 /min Sherry George DO Work Phone: [facility] 12-06-2022 13:42-0400 Systolic blood pressure 94 mm[Hg] Sherry George DO Work Phone: [facility] 12-06-2022 10:33-0400 Body height 170.2 cm Lenin Ramirez MD Work Phone: [facility] 12-06-2022 10:33-0400 Diastolic blood pressure 58 mm[Hg] Lenin Ramirez MD Work Phone: [facility] 12-06-2022 10:33-0400 Heart rate 76 /min Lenin Ramirez MD Work Phone: [facility] 12-06-2022 10:33-0400 Systolic blood pressure 98 mm[Hg] Lenin Ramirez MD Work Phone: [facility] 12-01-2022 10:39-0400 Body temperature 97.7 [degF] Андрей Claros RN [facility] 12-01-2022 10:39-0400 Diastolic blood pressure 60 mm[Hg] Андрей Claros RN [facility] 12-01-2022 10:39-0400 Heart rate 91 /min Андрей Claros RN [facility] 12-01-2022 10:39-0400 Respiratory rate 16 /min Андрей Claros RN [facility] 12-01-2022 10:39-0400 SaO2% (BldA) [Mass fraction] 93 % Андрей Claros RN [facility] 12-01-2022 10:39-0400 Systolic blood pressure 102 mm[Hg] Андрей Claros RN [facility] 11-30-2022 13:52-0400 Diastolic blood pressure 55 mm[Hg] Sravan Steele LPN [facility], [facility].; [facility]. 11-30-2022 13:52-0400 Heart rate 93 /min Sravan Steele LPN [facility], [facility].; [facility]. 11-30-2022 13:52-0400 Systolic blood pressure 111 mm[Hg] Sravan Steele LPN [facility], [facility].; [facility]. 11-27-2022 10:09-0400 Heart rate 89 /min KATHE CHAMPION MD [facility] 11-27-2022 10:09-0400 Respiratory rate 18 /min KATHE CHAMPION MD [facility] 11-27-2022 10:04-0400 Body temperature 97.7 [degF] KATHE CHAMPION MD [facility] 11-27-2022 10:04-0400 Diastolic Blood Pressure Non-Invasive 74 1 KATHE CHAMPION MD [facility] 11-27-2022 10:04-0400 Heart rate 89 /min KATHE CHAMPION MD [facility] 11-27-2022 10:04-0400 Systolic Blood Pressure Non-Invasive 105 1 KATHE CHAMPION MD [facility] 11-27-2022 07:27-0400 Heart rate 85 /min KATHE CHAMPION MD [facility] 11-27-2022 07:27-0400 Respiratory rate 18 /min KATHE CHAMPION MD [facility] 11-27-2022 07:18-0400 Body temperature 97.7 [degF] KATHE CHAMPION MD [facility] 11-27-2022 07:18-0400 Diastolic Blood Pressure Non-Invasive 55 1 KATHE CHAMPION MD [facility] 11-27-2022 07:18-0400 Respiratory rate 18 /min KATHE CHAMPION MD [facility] 11-27-2022 07:18-0400 Systolic Blood Pressure Non-Invasive 98 1 KATHE CHAMPION MD [facility] 11-27-2022 02:28-0400 Blood Pressure Cuff Size KATHE CHAMPION MD [facility] 11-27-2022 02:28-0400 Blood Pressure Location KATHE CHAMPION MD [facility] 11-27-2022 02:28-0400 Blood Pressure Method KATHE CHAMPION MD [facility] 11-27-2022 02:28-0400 Body temperature 97.88 [degF] KATHE CHAMPION MD [facility] 11-27-2022 02:28-0400 Diastolic Blood Pressure Non-Invasive 61 1 KATHE CHAMPOIN MD [facility] 11-27-2022 02:28-0400 Systolic Blood Pressure Non-Invasive 93 1 KATHE CHAMPION MD [facility] 11-27-2022 00:40-0400 Blood Pressure Cuff Size KATHE CHAMPION MD [facility] 11-27-2022 00:40-0400 Blood Pressure Location KATHE CHAMPION MD [facility] 11-27-2022 00:40-0400 Blood Pressure Method KTAHE CHAMPION MD [facility] 11-26-2022 23:26-0400 Blood Pressure Cuff Size KATHE CHAMPION MD [facility] 11-26-2022 23:26-0400 Blood Pressure Location KATHE CHAMPION MD [facility] 11-26-2022 23:26-0400 Blood Pressure Method KATHE CHAMPION MD [facility] 11-26-2022 19:11-0400 Body temperature 96.8 [degF] KATHE CHAMPION MD [facility] 11-26-2022 19:11-0400 Body weight 80.5 kg KATHE CHAMPION MD [facility] 11-26-2022 19:11-0400 Reason For Taking VItal Signs KATHE CHAMPION MD [facility] 11-26-2022 19:01-0400 Heart rate 104 /min KATHE CHAMPION MD [facility] 11-26-2022 18:31-0400 Heart rate 104 /min KATHE CHAMPION MD [facility] 11-26-2022 18:02-0400 Heart rate 76 /min KATHE CHAMPION MD [facility] 11-26-2022 17:05-0400 Body weight 81.9 kg KATHE CHAMPION MD [facility] 11-26-2022 17:05-0400 Reason For Taking VItal Signs KATHE CHAMPION MD [facility] 11-26-2022 14:34-0400 Heart rate 124 /min KATHE CHAMPION MD [facility] 11-26-2022 10:36-0400 Heart rate 104 /min KATHE CHAMPION MD [facility] 11-26-2022 02:23-0400 Reason For Taking VItal Signs KATHE CHAMPION MD [facility] 11-25-2022 12:20-0400 Body temperature 98.06 [degF] KATHE CHAMPION MD [facility] 11-25-2022 12:20-0400 Body weight 78.2 kg KATHE CHAMPION MD [facility] 11-25-2022 09:23-0400 Body temperature 97.52 [degF] KATHE CHAMPION MD [facility] 11-24-2022 19:00-0400 Heart rate 92 /min KATHE CHAMPION MD [facility] 11-24-2022 16:54-0400 Mean blood pressure 68 mm[Hg] KATHE CHAMPION MD [facility] 11-24-2022 15:05-0400 Mean blood pressure 67 mm[Hg] KATHE CHAMPION MD [facility] 11-24-2022 14:30-0400 Mean blood pressure 60 mm[Hg] KATHE CHAMPION MD [facility] 11-24-2022 00:05-0400 Body height 170 cm KATHE CHAMPION MD [facility] 11-24-2022 00:05-0400 Body weight 26.75 kg/m2 KATHE CHAMPION MD [facility] 11-17-2022 08:56-0400 Body temperature 97.2 [degF] Essence Larios [facility] 11-17-2022 08:56-0400 Diastolic blood pressure 58 mm[Hg] Essence Larios [facility] 11-17-2022 08:56-0400 Heart rate 58 /min Essence L[facility] 11-17-2022 08:56-0400 Respiratory rate 18 /min [facility]ence [facility] 11-17-2022 08:56-0400 SaO2% (BldA) [Mass fraction] 98 % Essence Larios [facility] 11-17-2022 08:56-0400 Systolic blood pressure 102 mm[Hg] Essence Larios [facility] 11-03-2022 10:55-0400 Body temperature 98.2 [degF] Андрей Claros RN [facility] 11-03-2022 10:55-0400 Diastolic blood pressure 62 mm[Hg] Андрей Claros RN [facility] 11-03-2022 10:55-0400 Heart rate 78 /min Андрей Claros RN [facility] 11-03-2022 10:55-0400 Respiratory rate 16 /min Андрей Claros RN [facility] 11-03-2022 10:55-0400 SaO2% (BldA) [Mass fraction] 93 % Андрей Claros RN [facility] 11-03-2022 10:55-0400 Systolic blood pressure 118 mm[Hg] Андрей Claros RN [facility] 10-25-2022 09:24-0400 Body temperature 98.29 [degF] Андрей Claros RN [facility] 10-25-2022 09:24-0400 Diastolic blood pressure 62 mm[Hg] Андрей Claros RN [facility] 10-25-2022 09:24-0400 Heart rate 78 /min Андрей Claros RN [facility] 10-25-2022 09:24-0400 Respiratory rate 16 /min Андрей Claros RN [facility] 10-25-2022 09:24-0400 SaO2% (BldA) [Mass fraction] 92 % Андрей Claros RN [facility] 10-25-2022 09:24-0400 Systolic blood pressure 102 mm[Hg] Андрей Claros RN [facility] 10-13-2022 08:53-0400 Body temperature 97.9 [degF] Андрей Claros RN [facility] 10-13-2022 08:53-0400 Diastolic blood pressure 62 mm[Hg] Андрей Claros RN [facility] 10-13-2022 08:53-0400 Heart rate 86 /min Андрей Claros RN [facility] 10-13-2022 08:53-0400 Respiratory rate 16 /min Андрей Claros RN [facility] 10-13-2022 08:53-0400 SaO2% (BldA) [Mass fraction] 97 % Андрей Claros RN [facility] 10-13-2022 08:53-0400 Systolic blood pressure 112 mm[Hg] Андрей Claros RN [facility] 10-06-2022 08:32-0400 Body temperature 98.1 [degF] Андрей Claros RN [facility] 10-06-2022 08:32-0400 Diastolic blood pressure 68 mm[Hg] Андрей Claros RN [facility] 10-06-2022 08:32-0400 Heart rate 68 /min Андрей Claros RN [facility] 10-06-2022 08:32-0400 Respiratory rate 16 /min Андрей Claros RN [facility] 10-06-2022 08:32-0400 SaO2% (BldA) [Mass fraction] 97 % Андрей Claros RN [facility] 10-06-2022 08:32-0400 Systolic blood pressure 108 mm[Hg] Андрей Claros RN [facility] 09-29-2022 10:34-0400 Body temperature 98.01 [degF] Андрей Claros RN [facility] 09-29-2022 10:34-0400 Diastolic blood pressure 60 mm[Hg] Андрей Claros RN [facility] 09-29-2022 10:34-0400 Heart rate 92 /min Андрей Claros RN [facility] 09-29-2022 10:34-0400 Respiratory rate 16 /min Андрей Claros RN [facility] 09-29-2022 10:34-0400 SaO2% (BldA) [Mass fraction] 97 % Андрей Claros RN [facility] 09-29-2022 10:34-0400 Systolic blood pressure 118 mm[Hg] Андрей Claros RN [facility] 09-22-2022 08:23-0400 Body temperature 98.1 [degF] Андрей Claros RN [facility] 09-22-2022 08:23-0400 Diastolic blood pressure 62 mm[Hg] Андрей Claros RN [facility] 09-22-2022 08:23-0400 Heart rate 82 /min Андрей Claros RN [facility] 09-22-2022 08:23-0400 Respiratory rate 16 /min Андрей Claros RN [facility] 09-22-2022 08:23-0400 SaO2% (BldA) [Mass fraction] 99 % Андрей Claros RN [facility] 09-22-2022 08:23-0400 Systolic blood pressure 108 mm[Hg] Андрей Claros RN [facility] 09-15-2022 09:01-0400 Body temperature 98.29 [degF] Андрей Claros RN [facility] 09-15-2022 09:01-0400 Diastolic blood pressure 62 mm[Hg] Андрей Claros RN [facility] 09-15-2022 09:01-0400 Heart rate 79 /min Андрей Claros RN [facility] 09-15-2022 09:01-0400 Respiratory rate 16 /min Андрей Claros RN [facility] 09-15-2022 09:01-0400 SaO2% (BldA) [Mass fraction] 91 % Андрей Claros RN [facility] 09-15-2022 09:01-0400 Systolic blood pressure 104 mm[Hg] Андрей Claros RN [facility] 09-08-2022 08:47-0400 Body temperature 98.1 [degF] Андрей Claros RN [facility] 09-08-2022 08:47-0400 Diastolic blood pressure 60 mm[Hg] Андрей Claros RN [facility] 09-08-2022 08:47-0400 Heart rate 87 /min Андрей Claros RN [facility] 09-08-2022 08:47-0400 Respiratory rate 16 /min Андрей Claros RN [facility] 09-08-2022 08:47-0400 SaO2% (BldA) [Mass fraction] 99 % Андрей Claros RN [facility] 09-08-2022 08:47-0400 Systolic blood pressure 102 mm[Hg] Андрей Claros RN [facility] 09-01-2022 09:01-0400 Body temperature 97.3 [degF] Андрей Claros RN [facility] 09-01-2022 09:01-0400 Diastolic blood pressure 58 mm[Hg] Андрей Claros RN [facility] 09-01-2022 09:01-0400 Heart rate 92 /min Андрей Claros RN [facility] 09-01-2022 09:01-0400 Respiratory rate 16 /min Андрей Claros RN [facility] 09-01-2022 09:01-0400 SaO2% (BldA) [Mass fraction] 97 % Андрей Claros RN [facility] 09-01-2022 09:01-0400 Systolic blood pressure 112 mm[Hg] Андрей Claros RN [facility] 08-25-2022 11:43-0400 Body temperature 98.2 [degF] Андрей Claros RN [facility] 08-25-2022 11:43-0400 Diastolic blood pressure 76 mm[Hg] Андрей Claros RN [facility] 08-25-2022 11:43-0400 Heart rate 81 /min Андрей Claros RN [facility] 08-25-2022 11:43-0400 Respiratory rate 16 /min Андрей Claros RN [facility] 08-25-2022 11:43-0400 SaO2% (BldA) [Mass fraction] 97 % Андрей Claros RN [facility] 08-25-2022 11:43-0400 Systolic blood pressure 114 mm[Hg] Андрей Claros RN [facility] 08-09-2022 08:39-0400 Body temperature 98.2 [degF] Андрей Claros RN [facility] 08-09-2022 08:39-0400 Diastolic blood pressure 76 mm[Hg] Андрей Claros RN [facility] 08-09-2022 08:39-0400 Heart rate 87 /min Андрей Claros RN [facility] 08-09-2022 08:39-0400 Respiratory rate 16 /min Андрей Claros RN [facility] 08-09-2022 08:39-0400 SaO2% (BldA) [Mass fraction] 95 % Андрей Claros RN [facility] 08-09-2022 08:39-0400 Systolic blood pressure 108 mm[Hg] Андрей Claros RN [facility] 07-21-2022 08:56-0400 Body temperature 98.1 [degF] Андрей Claros RN [facility] 07-21-2022 08:56-0400 Diastolic blood pressure 76 mm[Hg] Андрей Claros RN [facility] 07-21-2022 08:56-0400 Heart rate 76 /min Андрей Claros RN [facility] 07-21-2022 08:56-0400 Respiratory rate 16 /min Андрей Claros RN [facility] 07-21-2022 08:56-0400 SaO2% (BldA) [Mass fraction] 97 % Андрей Claros RN [facility] 07-21-2022 08:56-0400 Systolic blood pressure 106 mm[Hg] Андрей Claros RN [facility] 06-28-2022 11:27-0400 Body temperature 98.01 [degF] Андрей Claros RN [facility] 06-28-2022 11:27-0400 Diastolic blood pressure 62 mm[Hg] Андрей Claros RN [facility] 06-28-2022 11:27-0400 Heart rate 63 /min Андрей Claros RN [facility] 06-28-2022 11:27-0400 Respiratory rate 16 /min Андрей Claros RN [facility] 06-28-2022 11:27-0400 SaO2% (BldA) [Mass fraction] 93 % Андрей Claros RN [facility] 06-28-2022 11:27-0400 Systolic blood pressure 102 mm[Hg] Андрей Claros RN [facility] 06-23-2022 11:21-0400 Body temperature 98.1 [degF] Андрей Claros RN [facility] 06-23-2022 11:21-0400 Diastolic blood pressure 74 mm[Hg] Андрей Claros RN [facility] 06-23-2022 11:21-0400 Heart rate 76 /min Андрей Claros RN [facility] 06-23-2022 11:21-0400 Respiratory rate 16 /min Андрей Claros RN [facility] 06-23-2022 11:21-0400 SaO2% (BldA) [Mass fraction] 98 % Андрей Claros RN [facility] 06-23-2022 11:21-0400 Systolic blood pressure 114 mm[Hg] Андрей Claros RN [facility] 06-23-2022 09:18-0400 Body temperature 97.9 [degF] Juancho Kaminski PT [facility] 06-23-2022 09:18-0400 Diastolic blood pressure 70 mm[Hg] Juancho Kaminski [facility] 06-23-2022 09:18-0400 Heart rate 80 /min Juancho Kaminski PT [facility] 06-23-2022 09:18-0400 Respiratory rate 18 /min Juancho Kaminski PT [facility] 06-23-2022 09:18-0400 SaO2% (BldA) [Mass fraction] 97 % Juancho Kaminski [facility] 06-23-2022 09:18-0400 Systolic blood pressure 125 mm[Hg] Juancho Kaminski [facility] 06-21-2022 09:08-0400 Body height 163.83 cm [facility], [facility].; [facility]. 06-21-2022 09:08-0400 Body mass index (BMI) [Ratio] 28.56 kg/m2 [facility], [facility].; [employer] [facility], [facility]. 06-21-2022 09:08-0400 Body surface area Derived from formula 1.83 m2 [facility], [facility].; [employer] [facility], [facility]. 06-21-2022 09:08-0400 Body weight 76.66 kg [facility], [facility].; [employer] [facility], [facility]. 06-21-2022 09:08-0400 Diastolic blood pressure 51 mm[Hg] [facility], [facility].; [employer] [facility], [facility]. 06-21-2022 09:08-0400 Heart rate 77 /min [facility], [facility].; [employer] [facility], [facility]. 06-21-2022 09:08-0400 Systolic blood pressure 130 mm[Hg] [facility], [facility].; [employer], [facility]. 06-15-2022 15:37-0400 Body temperature 97.7 [degF] Sravan Martín [facility] 06-15-2022 15:37-0400 Diastolic blood pressure 81 mm[Hg] Sravan Martín [facility] 06-15-2022 15:37-0400 Heart rate 78 /min Sravan Martín [facility] 06-15-2022 15:37-0400 Respiratory rate 18 /min Sravan Martín [employer] [facility] 06-15-2022 15:37-0400 SaO2% (BldA) [Mass fraction] 91 % Sravan Martín [employer] [facility] 06-15-2022 15:37-0400 Systolic blood pressure 132 mm[Hg] Sravan Martín [employer] [facility] 06-09-2022 12:59-0400 Body temperature 97.7 [degF] Sravan Martín [employer] [facility] 06-09-2022 12:59-0400 Diastolic blood pressure 64 mm[Hg] Sravan Martín [employer] [facility] 06-09-2022 12:59-0400 Heart rate 71 /min Sravan Martín [employer] [facility] 06-09-2022 12:59-0400 Respiratory rate 18 /min Sravan Martín [employer] [facility] 06-09-2022 12:59-0400 SaO2% (BldA) [Mass fraction] 93 % Sravan Martín [employer] [facility] 06-09-2022 12:59-0400 Systolic blood pressure 125 mm[Hg] Sravan Martín [employer] [facility] 06-02-2022 09:42-0400 Body temperature 99.1 [degF] Андрей Claros RN [facility] 06-02-2022 09:42-0400 Diastolic blood pressure 58 mm[Hg] Андрей Claros RN [facility] 06-02-2022 09:42-0400 Heart rate 76 /min Андрей Claros RN [facility] 06-02-2022 09:42-0400 Respiratory rate 16 /min Андрей Claros RN [facility] 06-02-2022 09:42-0400 SaO2% (BldA) [Mass fraction] 96 % Андрей Claros RN [facility] 06-02-2022 09:42-0400 Systolic blood pressure 102 mm[Hg] Андрей Claros RN [facility] 06-01-2022 15:40-0400 Body temperature 97.5 [degF] [facility] 06-01-2022 15:40-0400 Diastolic blood pressure 62 mm[Hg] [facility] 06-01-2022 15:40-0400 Respiratory rate 17 /min [facility] 06-01-2022 15:40-0400 Systolic blood pressure 128 mm[Hg] [facility] 05-31-2022 10:08-0400 Body height 170.2 cm Lenin Ramirez MD Work Phone: [facility] 05-31-2022 10:08-0400 Body mass index (BMI) [Ratio] 26.31 kg/m2 Lenin Ramirez MD Work Phone: [facility] 05-31-2022 10:08-0400 Body weight 76.2 kg Lnein Ramirez MD Work Phone: [facility] 05-31-2022 10:08-0400 Diastolic blood pressure 69 mm[Hg] Lenin Ramirez MD Work Phone: [facility] 05-31-2022 10:08-0400 Heart rate 73 /min Lenin Ramirez MD Work Phone: [facility] 05-31-2022 10:08-0400 SaO2% (BldA) [Mass fraction] 99 % Lenin Ramirez MD Work Phone: [facility] 05-31-2022 10:08-0400 Systolic blood pressure 119 mm[Hg] Lenin Ramirez MD Work Phone: [facility] 05-26-2022 09:03-0400 Body temperature 98.1 [degF] Андрей Claros RN [facility] 05-26-2022 09:03-0400 Diastolic blood pressure 56 mm[Hg] Андрей Claros RN [facility] 05-26-2022 09:03-0400 Heart rate 86 /min Андрей Claros RN [facility] 05-26-2022 09:03-0400 Respiratory rate 16 /min Андрей Claros RN [facility] 05-26-2022 09:03-0400 SaO2% (BldA) [Mass fraction] 98 % Андрей Claros RN [facility] 05-26-2022 09:03-0400 Systolic blood pressure 110 mm[Hg] Андрей Claros RN [facility] 05-24-2022 09:14-0400 Body temperature 97.9 [degF] Sachin Claire PT [facility] 05-24-2022 09:14-0400 Diastolic blood pressure 72 mm[Hg] Sachin Claire PT [facility] 05-24-2022 09:14-0400 Heart rate 63 /min Sachin Claire PT [facility] 05-24-2022 09:14-0400 Respiratory rate 16 /min Sachin Claire PT [facility] 05-24-2022 09:14-0400 SaO2% (BldA) [Mass fraction] 97 % Sachin Claire PT [facility] 05-24-2022 09:14-0400 Systolic blood pressure 117 mm[Hg] Sachin Claire PT [facility] 05-19-2022 10:23-0500 Body temperature 97.3 [degF] [facility] [employer] [facility] 05-19-2022 10:23-0500 Diastolic blood pressure 74 mm[Hg] [facility] 05-19-2022 10:23-0500 Heart rate 77 /min [facility] 05-19-2022 10:23-0500 Respiratory rate 17 /min [facility] 05-19-2022 10:23-0500 SaO2% (BldA) [Mass fraction] 95 % [facility] 05-19-2022 10:23-0500 Systolic blood pressure 138 mm[Hg] [facility] 05-19-2022 08:35-0500 Body temperature 98.49 [degF] Андрей Claros RN [facility] 05-19-2022 08:35-0500 Diastolic blood pressure 54 mm[Hg] Андрей Claros RN [facility] 05-19-2022 08:35-0500 Heart rate 78 /min Андрей Claros RN [facility] 05-19-2022 08:35-0500 Respiratory rate 16 /min Андрей Claros RN [facility] 05-19-2022 08:35-0500 SaO2% (BldA) [Mass fraction] 99 % Андрей Claros RN [facility] 05-19-2022 08:35-0500 Systolic blood pressure 116 mm[Hg] Андрей Hyacinth RN [facility] 05-16-2022 15:05-0500 Body temperature 98.71 [degF] Sravan Martín [employer] [facility] 05-16-2022 15:05-0500 Diastolic blood pressure 89 mm[Hg] Sravan Martín [employer] [facility] 05-16-2022 15:05-0500 Heart rate 79 /min Sravan Martín [employer] [facility] 05-16-2022 15:05-0500 Respiratory rate 18 /min Sravan Martín [employer] [facility] 05-16-2022 15:05-0500 SaO2% (BldA) [Mass fraction] 97 % Sravan Resendiz [facility] 05-16-2022 15:05-0500 Systolic blood pressure 124 mm[Hg] Sravan Resendiz [facility] 05-13-2022 15:12-0500 Body temperature 97.39 [degF] Gena Saab [facility] 05-13-2022 15:12-0500 Diastolic blood pressure 76 mm[Hg] Gena Saab [facility] 05-13-2022 15:12-0500 Heart rate 85 /min Gena Saab [facility] 05-13-2022 15:12-0500 SaO2% (BldA) [Mass fraction] 89 % Gena Saab [facility] 05-13-2022 15:12-0500 Systolic blood pressure 125 mm[Hg] Gena Saab [facility] 05-12-2022 13:43-0500 Body height 163.83 cm Varsha Upton LPN [facility], [facility].; [facility], [facility]. 05-12-2022 13:43-0500 Body mass index (BMI) [Ratio] 29.24 kg/m2 Varsha Upton LPN [facility], [facility].; [facility], [facility]. 05-12-2022 13:43-0500 Body surface area Derived from formula 1.85 m2 Varsha Upton LPN [facility], [facility].; [facility], [facility]. 05-12-2022 13:43-0500 Body weight 78.47 kg Varsha Upton LPN [facility], [facility].; [facility], [facility]. 05-12-2022 13:43-0500 Diastolic blood pressure 67 mm[Hg] Varsha Upton LPN [facility], [facility].; [facility], [facility]. 05-12-2022 13:43-0500 Heart rate 69 /min Varsha Upton LPN [facility], [facility].; [facility], [facility]. 05-12-2022 13:43-0500 Inhaled oxygen concentration 30 % Varsha Upton LPN [facility], [facility].; [facility], [facility]. 05-12-2022 13:43-0500 SaO2% (BldA) [Mass fraction] 98 % Varsha Upton LPN [facility], [facility].; [facility]. 05-12-2022 13:43-0500 Systolic blood pressure 119 mm[Hg] Varsha Upton LPN [facility].; [facility]. 05-12-2022 13:43-0500 2.5 L/min Varsha Upton LPN [facility].; [facility]. 05-12-2022 10:03-0500 Body temperature 97.39 [degF] Андрей Claros RN [facility] 05-12-2022 10:03-0500 Diastolic blood pressure 60 mm[Hg] Андрей Claros RN [facility] 05-12-2022 10:03-0500 Heart rate 72 /min Андрей Claros RN [facility] 05-12-2022 10:03-0500 Respiratory rate 16 /min Андрей Claros RN [facility] 05-12-2022 10:03-0500 SaO2% (BldA) [Mass fraction] 97 % Андрей Claros RN [facility] 05-12-2022 10:03-0500 Systolic blood pressure 116 mm[Hg] Андрей Claros RN [facility] 05-10-2022 10:29-0500 Body temperature 98.6 [degF] Renee MCALLISTER [facility] 05-10-2022 10:29-0500 Diastolic blood pressure 56 mm[Hg] Renee MCALLISTER [facility] 05-10-2022 10:29-0500 Heart rate 88 /min Renee MCALLISTER [facility] 05-10-2022 10:29-0500 Respiratory rate 16 /min Renee MCALLISTER [facility] 05-10-2022 10:29-0500 SaO2% (BldA) [Mass fraction] 98 % Renee MCALLISTER [facility] 05-10-2022 10:29-0500 Systolic blood pressure 114 mm[Hg] Renee MCALLISTER [facility] 05-10-2022 09:35-0500 Body temperature 98.2 [degF] Sravan Martín [employer] [facility] 05-10-2022 09:35-0500 Diastolic blood pressure 54 mm[Hg] Sravan Martín [facility] 05-10-2022 09:35-0500 Heart rate 82 /min Sravan Martín [facility] 05-10-2022 09:35-0500 Respiratory rate 16 /min Sarvan Martín [employer] [facility] 05-10-2022 09:35-0500 SaO2% (BldA) [Mass fraction] 96 % Sravan Martín [facility] 05-10-2022 09:35-0500 Systolic blood pressure 111 mm[Hg] Sravan Resendiz [employer] [facility] 05-08-2022 14:28-0500 Body temperature 97.5 [degF] Sachin Claire PT [facility] 05-08-2022 14:28-0500 Diastolic blood pressure 50 mm[Hg] Sachin Claire PT [facility] 05-08-2022 14:28-0500 Heart rate 71 /min Sachin Claire PT [facility] 05-08-2022 14:28-0500 Respiratory rate 16 /min Sachin Claire PT [facility] 05-08-2022 14:28-0500 SaO2% (BldA) [Mass fraction] 97 % Sachin Claire PT [facility] 05-08-2022 14:28-0500 Systolic blood pressure 97 mm[Hg] Sachin Claire PT [facility] 05-05-2022 12:53-0500 Body temperature 98.2 [degF] Renee MCALLISTER [facility] 05-05-2022 12:53-0500 Diastolic blood pressure 64 mm[Hg] Renee MCALLISTER [facility] 05-05-2022 12:53-0500 Heart rate 77 /min Renee MCALLISTER [facility] 05-05-2022 12:53-0500 Respiratory rate 16 /min Renee MCALLISTER [facility] 05-05-2022 12:53-0500 SaO2% (BldA) [Mass fraction] 95 % Renee MCALLISTER [facility] 05-05-2022 12:53-0500 Systolic blood pressure 114 mm[Hg] Renee MCALLISTER [facility] 05-05-2022 09:58-0500 Body temperature 98.1 [degF] Андрей Claros RN [facility] 05-05-2022 09:58-0500 Diastolic blood pressure 62 mm[Hg] Андрей Claros RN [facility] 05-05-2022 09:58-0500 Heart rate 72 /min Андрей Claros RN [facility] 05-05-2022 09:58-0500 Respiratory rate 16 /min Андрей Claros RN [facility] 05-05-2022 09:58-0500 SaO2% (BldA) [Mass fraction] 98 % Андрей Claros RN [facility] 05-05-2022 09:58-0500 Systolic blood pressure 122 mm[Hg] Андрей Claros RN [facility] 05-02-2022 15:52-0500 Body temperature 97.7 [degF] Gena Saab [facility] 05-02-2022 15:52-0500 Diastolic blood pressure 46 mm[Hg] Gena Saab [facility] 05-02-2022 15:52-0500 Heart rate 76 /min Gena Saab [facility] 05-02-2022 15:52-0500 SaO2% (BldA) [Mass fraction] 98 % Gena Saab [facility] 05-02-2022 15:52-0500 Systolic blood pressure 97 mm[Hg] Gena Saab [facility] 05-01-2022 11:41-0500 Body height 170.2 cm Melida Cook [facility] 05-01-2022 11:41-0500 Body mass index (BMI) [Ratio] 26.63 kg/m2 Melida Cook [facility] 05-01-2022 11:41-0500 Body temperature 97.59 [degF] Melida Cook [facility] 05-01-2022 11:41-0500 Body weight 77.11 kg Melida Cook [facility] 05-01-2022 11:41-0500 Diastolic blood pressure 70 mm[Hg] Melida Cook [facility] 05-01-2022 11:41-0500 Heart rate 70 /min Melida Cook [facility] 05-01-2022 11:41-0500 Respiratory rate 18 /min Melida Cook [facility] 05-01-2022 11:41-0500 SaO2% (BldA) [Mass fraction] 96 % Melida Cook [facility] 05-01-2022 11:41-0500 Systolic blood pressure 110 mm[Hg] Melida Cook [facility] 04-14-2022 13:22-0500 Body height 163.83 cm Varsha Upton LPN [facility], [facility].; [facility], [facility]. 04-14-2022 13:22-0500 Body mass index (BMI) [Ratio] 30.08 kg/m2 Varsha Upton LPN [facility], [facility].; [employer] [facility], [facility]. 04-14-2022 13:22-0500 Body surface area Derived from formula 1.87 m2 Varsha Upton LPN [facility], [facility].; [employer] [facility]. 04-14-2022 13:22-0500 Body weight 80.74 kg Varsha Upton LPN [facility], [facility].; [employer] [facility]. 04-14-2022 13:22-0500 Diastolic blood pressure 71 mm[Hg] Varsha Upton LPN [facility], [facility].; [employer] [facility], [facility]. 04-14-2022 13:22-0500 Heart rate 80 /min Varsha Upton LPN [facility], [facility].; [employer], [facility]. 04-14-2022 13:22-0500 Systolic blood pressure 121 mm[Hg] Varsha Upton LPN [facility], [facility].; [employer], [facility]. 04-05-2022 15:31-0500 Body mass index (BMI) [Ratio] 28.04 kg/m2 Sherry George DO Work Phone: [facility] 04-05-2022 15:31-0500 Body weight 81.19 kg Sherry George DO Work Phone: [facility] 04-05-2022 15:31-0500 Diastolic blood pressure 57 mm[Hg] Sherry George DO Work Phone: [facility] 04-05-2022 15:31-0500 Heart rate 78 /min Sherry George DO Work Phone: [facility] 04-05-2022 15:31-0500 Respiratory rate 16 /min Sherry George DO Work Phone: [facility] 04-05-2022 15:31-0500 Systolic blood pressure 106 mm[Hg] Sherry George DO Work Phone: [facility] 03-29-2022 10:07-0500 Body height 163.83 cm Varsha Obrien MA [employer] [facility].; [employer] [facility]. 03-29-2022 10:07-0500 Body mass index (BMI) [Ratio] 30.08 kg/m2 Varsha Obrien MA [facility], [facility].; [employer] [facility]. 03-29-2022 10:07-0500 Body surface area Derived from formula 1.87 m2 Varsha Obrien MA [facility], Inc.; [facility], [facility]. 03-29-2022 10:07-0500 Body weight 80.74 kg Varsha Obrien MA [facility], [facility].; [employer] [facility]. 03-29-2022 10:07-0500 Diastolic blood pressure 64 mm[Hg] Varsha Obrien MA [facility], [facility].; [employer] [facility]. 03-29-2022 10:07-0500 Heart rate 69 /min Varsha Obrien MA [facility], [facility].; [employer] [facility]. 03-29-2022 10:07-0500 Systolic blood pressure 104 mm[Hg] Varsha Obrien MA [facility], [facility].; [employer] [facility]. 02-22-2022 13:15-0500 Body height 163.83 cm Varsha Obrien MA [facility], [facility].; [employer] [facility]. 02-22-2022 13:15-0500 Body mass index (BMI) [Ratio] 32.79 kg/m2 Varsha Obrien MA [facility], [facility].; [employer] [facility]. 02-22-2022 13:15-0500 Body surface area Derived from formula 1.94 m2 Varsha Obrien MA [facility], [facility].; [employer] [facility]. 02-22-2022 13:15-0500 Body weight 88 kg Varsha Obrien MA [employer] [facility], [facility].; [employer], [facility]. 02-22-2022 13:15-0500 Diastolic blood pressure 47 mm[Hg] Varsha Obrien MA [employer] [facility] [employer]. 02-22-2022 13:15-0500 Heart rate 76 /min Varsha Obrien MA [employer] [facility], [facility].; [employer] [facility]. 02-22-2022 13:15-0500 Inhaled oxygen concentration 20 % Varsha Obrien MA [employer] [facility].; [employer]. 02-22-2022 13:15-0500 SaO2% (BldA) [Mass fraction] 83 % Varsha Obrien MA [employer]. 02-22-2022 13:15-0500 Systolic blood pressure 90 mm[Hg] Varsha Obrien MA [employer] 12-23-2021 08:19-0400 Body height 163.83 cm Zack Olmos MD Work Phone: [employer] 12-23-2021 08:19-0400 Body mass index (BMI) [Ratio] 32.79 kg/m2 Zack Olmos MD Work Phone: [employer] 12-23-2021 08:19-0400 Body surface area Derived from formula 1.94 m2 Zack Olmos MD Work Phone: [employer]. 12-23-2021 08:19-0400 Body weight 88 kg Zack Olmos MD Work Phone: [employer]. 12-23-2021 08:19-0400 Diastolic blood pressure 72 mm[Hg] Zack Olmos MD Work Phone: [employer]. 12-23-2021 08:19-0400 Heart rate 79 /min Zack Olmos MD Work Phone: [employer].; [employer] 12-23-2021 08:19-0400 Inhaled oxygen concentration 36 % Zack Olmos MD Work Phone: [employer].; [employer] 12-23-2021 08:19-0400 SaO2% (BldA) [Mass fraction] 98 % Zack Olmos MD Work Phone: [employer] [facility] 12-23-2021 08:19-0400 Systolic blood pressure 128 mm[Hg] Zack Olmos MD Work Phone: [facility].; [facility] 12-23-2021 08:19-0400 4 L/min Zack Olmos MD Work Phone: [facility] [employer].; [facility] 09-09-2021 14:33-0400 Body temperature 97.9 [degF] [facility] 09-09-2021 14:33-0400 Diastolic blood pressure 65 mm[Hg] Donaldo [facility] 09-09-2021 14:33-0400 Heart rate 67 /min [facility] 09-09-2021 14:33-0400 Respiratory rate 16 /min [facility] 09-09-2021 14:33-0400 SaO2% (BldA) [Mass fraction] 94 % [facility] 09-09-2021 14:33-0400 Systolic blood pressure 117 mm[Hg] [facility] 09-07-2021 15:08-0400 Body temperature 97.81 [degF] [facility] 09-07-2021 15:08-0400 Diastolic blood pressure 73 mm[Hg] [facility] 09-07-2021 15:08-0400 Heart rate 63 /min Donaldo [facility] 09-07-2021 15:08-0400 Respiratory rate 15 /min Donaldo [facility] [facility] 09-07-2021 15:08-0400 SaO2% (BldA) [Mass fraction] 93 % [facility] 09-07-2021 15:08-0400 Systolic blood pressure 120 mm[Hg] [facility] 09-07-2021 08:34-0400 Body temperature 98.1 [degF] Андрей Claros RN [facility] 09-07-2021 08:34-0400 Diastolic blood pressure 50 mm[Hg] Андрей Claros RN [facility] 09-07-2021 08:34-0400 Heart rate 66 /min Андрей Claros RN [facility] 09-07-2021 08:34-0400 Respiratory rate 16 /min Андрей Claros RN [facility] 09-07-2021 08:34-0400 SaO2% (BldA) [Mass fraction] 95 % Андрей Claros RN [facility] 09-07-2021 08:34-0400 Systolic blood pressure 98 mm[Hg] Андрей Claros RN [facility] 09-01-2021 10:02-0400 Body temperature 97.9 [degF] Donaldo Thrush [facility] 09-01-2021 10:02-0400 Diastolic blood pressure 85 mm[Hg] Donaldo Thrush [facility] 09-01-2021 10:02-0400 Heart rate 67 /min Donaldo Thrush [facility] 09-01-2021 10:02-0400 Respiratory rate 16 /min Donaldo Thrush [facility] 09-01-2021 10:02-0400 SaO2% (BldA) [Mass fraction] 97 % Donaldo Thrush [facility] 09-01-2021 10:02-0400 Systolic blood pressure 121 mm[Hg] Donaldo Thrush [facility] 08-30-2021 10:10-0400 Body temperature 97.2 [degF] Donaldo Thrush [facility] 08-30-2021 10:10-0400 Diastolic blood pressure 63 mm[Hg] Donaldo Thrush [facility] 08-30-2021 10:10-0400 Heart rate 70 /min Donaldo Thrush [facility] 08-30-2021 10:10-0400 Respiratory rate 16 /min Donaldo Thrush [facility] 08-30-2021 10:10-0400 SaO2% (BldA) [Mass fraction] 95 % Donaldo Thrush [facility] 08-30-2021 10:10-0400 Systolic blood pressure 122 mm[Hg] Donaldo Thrush [facility] 08-26-2021 09:42-0400 Body temperature 98.1 [degF] Андрей Claros RN [facility] 08-26-2021 09:42-0400 Diastolic blood pressure 60 mm[Hg] Андрей Claros RN [facility] 08-26-2021 09:42-0400 Heart rate 78 /min Андрей Claros RN [facility] 08-26-2021 09:42-0400 Respiratory rate 16 /min Андрей Claros RN [facility] 08-26-2021 09:42-0400 SaO2% (BldA) [Mass fraction] 97 % Андрей Claros RN [facility] 08-26-2021 09:42-0400 Systolic blood pressure 112 mm[Hg] Андрей Claros RN [facility] 08-19-2021 09:15-0400 Body temperature 97.81 [degF] Андрей Claros RN [facility] 08-19-2021 09:15-0400 Diastolic blood pressure 62 mm[Hg] Андрей Claros RN [facility] 08-19-2021 09:15-0400 Respiratory rate 16 /min Андрей Claros RN [facility] 08-19-2021 09:15-0400 SaO2% (BldA) [Mass fraction] 94 % Андрей Claros RN [facility] 08-19-2021 09:15-0400 Systolic blood pressure 112 mm[Hg] Андрей Claros RN [facility] 08-17-2021 09:58-0400 SaO2% (BldA) [Mass fraction] 99 % Lenin Ramirez MD Work Phone: [facility] 08-17-2021 09:46-0400 Body height 170.2 cm Lenin Ramirez MD Work Phone: [facility] 08-17-2021 09:46-0400 Body mass index (BMI) [Ratio] 29.91 kg/m2 Lenin Ramirez MD Work Phone: [facility] 08-17-2021 09:46-0400 Body weight 86.64 kg Lenin Ramirez MD Work Phone: [facility] 08-17-2021 09:46-0400 Diastolic blood pressure 53 mm[Hg] Lenin Ramirez MD Work Phone: [facility] 08-17-2021 09:46-0400 Heart rate 85 /min Lenin Ramirez MD Work Phone: [facility] 08-17-2021 09:46-0400 Systolic blood pressure 114 mm[Hg] Lenin Ramirez MD Work Phone: [facility] 08-10-2021 09:01-0400 Body temperature 98.01 [degF] Андрей Claros HALEY [facility] 08-10-2021 09:01-0400 Diastolic blood pressure 60 mm[Hg] Андрей Claros RN [facility] 08-10-2021 09:01-0400 Heart rate 94 /min Андрей Claros RN [facility] 08-10-2021 09:01-0400 Respiratory rate 16 /min Андрей Claros RN [facility] 08-10-2021 09:01-0400 SaO2% (BldA) [Mass fraction] 96 % Андрей Claros RN [facility] 08-10-2021 09:01-0400 Systolic blood pressure 106 mm[Hg] Андрей Claros RN [facility] 08-03-2021 09:07-0400 Body temperature 98.2 [degF] Андрей Claros RN [facility] 08-03-2021 09:07-0400 Diastolic blood pressure 68 mm[Hg] Андрей Claros RN [facility] 08-03-2021 09:07-0400 Heart rate 67 /min Андрей Claros RN [facility] 08-03-2021 09:07-0400 Respiratory rate 16 /min Андрей Claros RN [facility] 08-03-2021 09:07-0400 SaO2% (BldA) [Mass fraction] 97 % Андрей Claros RN [facility] 08-03-2021 09:07-0400 Systolic blood pressure 104 mm[Hg] Андрей Claros RN [facility] 07-27-2021 09:02-0400 Body temperature 97.9 [degF] Андрей Claros RN [facility] 07-27-2021 09:02-0400 Diastolic blood pressure 78 mm[Hg] Андрей Claros RN [facility] 07-27-2021 09:02-0400 Heart rate 93 /min Андрей Claros RN [facility] 07-27-2021 09:02-0400 Respiratory rate 16 /min Андрей Claros RN [facility] 07-27-2021 09:02-0400 SaO2% (BldA) [Mass fraction] 93 % Андрей Claros RN [facility] 07-27-2021 09:02-0400 Systolic blood pressure 138 mm[Hg] Андрей Claros RN [facility] 07-15-2021 09:11-0400 Body temperature 98.91 [degF] Андрей Claros RN [facility] 07-15-2021 09:11-0400 Diastolic blood pressure 74 mm[Hg] Андрей Claros RN [facility] 07-15-2021 09:11-0400 Heart rate 76 /min Андрей Claros RN [facility] 07-15-2021 09:11-0400 Respiratory rate 16 /min Андрей Claros RN [facility] 07-15-2021 09:11-0400 SaO2% (BldA) [Mass fraction] 96 % Андрей Claros RN [facility] 07-15-2021 09:11-0400 Systolic blood pressure 118 mm[Hg] Андрей Claros RN [facility] 07-13-2021 09:20-0400 Body temperature 98.01 [degF] Андрей Claros RN [facility] 07-13-2021 09:20-0400 Diastolic blood pressure 62 mm[Hg] Андрей Claros RN [facility] 07-13-2021 09:20-0400 Heart rate 74 /min Андрей Claros RN [facility] 07-13-2021 09:20-0400 Respiratory rate 16 /min Андрей Claros RN [facility] 07-13-2021 09:20-0400 SaO2% (BldA) [Mass fraction] 97 % Андрей Claros RN [facility] 07-13-2021 09:20-0400 Systolic blood pressure 112 mm[Hg] Андрей Claros RN [facility] 07-06-2021 13:24-0400 Body height 163.83 cm Randi Silvestre [facility], [facility].; [employer]. 07-06-2021 13:24-0400 Body mass index (BMI) [Ratio] 31.6 kg/m2 Randi Silvestre [facility], [facility].; [employer] [facility], [facility]. 07-06-2021 13:24-0400 Body surface area Derived from formula 1.91 m2 Randi Silvestre [facility], [facility].; [employer] [facility], [facility]. 07-06-2021 13:24-0400 Body weight 84.82 kg [facility], [facility].; [employer], [employer]. 07-06-2021 13:24-0400 Diastolic blood pressure 65 mm[Hg] Randi Silvestre [facility], [facility].; [employer] [facility], [facility]. 07-06-2021 13:24-0400 Heart rate 90 /min Randi Silvestre [facility], [facility].; [employer], [facility]. 07-06-2021 13:24-0400 Inhaled oxygen concentration 32 % Randi Silvestre [facility].; [facility]. 07-06-2021 13:24-0400 SaO2% (BldA) [Mass fraction] 88 % Randi Silvestre [facility].; [facility], [facility]. 07-06-2021 13:24-0400 Systolic blood pressure 106 mm[Hg] Randi Silvestre [facility].; [facility], [facility]. 07-06-2021 13:24-0400 3 L/min Randi Silvestre [facility].; [facility], [facility]. 07-06-2021 09:53-0400 Body temperature 98.01 [degF] Андрей Claros RN [facility] 07-06-2021 09:53-0400 Diastolic blood pressure 80 mm[Hg] Андрей Claros RN [facility] 07-06-2021 09:53-0400 Heart rate 76 /min Андрей Claros RN [facility] 07-06-2021 09:53-0400 Respiratory rate 16 /min Андрей Claros RN [facility] 07-06-2021 09:53-0400 SaO2% (BldA) [Mass fraction] 97 % Андрей Claros RN [facility] 07-06-2021 09:53-0400 Systolic blood pressure 136 mm[Hg] Андрей Claros RN [facility] 07-02-2021 09:14-0400 Body height 163.83 cm Varsha Upton LPN [facility], [facility].; [facility], [facility]. 07-02-2021 09:14-0400 Body mass index (BMI) [Ratio] 31.6 kg/m2 Varsha Upton LPN [facility].; [facility], [facility]. 07-02-2021 09:14-0400 Body surface area Derived from formula 1.91 m2 Varsha Upton LPN [facility], [facility].; [facility], [facility]. 07-02-2021 09:14-0400 Body temperature 101.6 [degF] Varsha Upton LPN [facility], [facility].; [facility], [facility]. 07-02-2021 09:14-0400 Body weight 84.82 kg Varsha Upton LPN [facility], [facility].; [facility]. 07-02-2021 09:14-0400 Diastolic blood pressure 70 mm[Hg] Varsha Upton LPN [facility].; [facility]. 07-02-2021 09:14-0400 Heart rate 112 /min Varsha Upton LPN [facility].; [facility]. 07-02-2021 09:14-0400 Inhaled oxygen concentration 20 % Varsha Upton LPN [facility].; [facility]. 07-02-2021 09:14-0400 SaO2% (BldA) [Mass fraction] 78 % Varsha Upton LPN [facility].; [facility] 07-02-2021 09:14-0400 Systolic blood pressure 136 mm[Hg] Varsha Upton LPN [facility].; [facility]. 06-29-2021 09:39-0400 Body temperature 98.1 [degF] Андрей Claros RN [facility] 06-29-2021 09:39-0400 Diastolic blood pressure 62 mm[Hg] Андрей Hyacinth RN [facility] 06-29-2021 09:39-0400 Heart rate 73 /min Андрей Hyacinth RN [facility] 06-29-2021 09:39-0400 Respiratory rate 18 /min Андрей Hyacinth [facility] 06-29-2021 09:39-0400 Systolic blood pressure 108 mm[Hg] Андрей Hyacinth RN [facility] 06-22-2021 11:15-0400 Body temperature 97.81 [degF] Андрей Claros RN [facility] 06-22-2021 11:15-0400 Diastolic blood pressure 60 mm[Hg] Андрей Hyacinth RN [facility] 06-22-2021 11:15-0400 Heart rate 84 /min Андрей Claros RN [facility] 06-22-2021 11:15-0400 Respiratory rate 16 /min Андрей Claros RN [facility] 06-22-2021 11:15-0400 SaO2% (BldA) [Mass fraction] 89 % Андрей Claros RN [facility] 06-22-2021 11:15-0400 Systolic blood pressure 110 mm[Hg] Андрей Claros RN [facility] 06-15-2021 11:06-0400 Body temperature 98.49 [degF] Андрей Claros RN [facility] 06-15-2021 11:06-0400 Diastolic blood pressure 68 mm[Hg] Андрей Claros RN [facility] 06-15-2021 11:06-0400 Heart rate 78 /min Андрей Claros RN [facility] 06-15-2021 11:06-0400 Respiratory rate 16 /min Андрей Claros RN [facility] 06-15-2021 11:06-0400 SaO2% (BldA) [Mass fraction] 89 % Андрей Claros RN [facility] 06-15-2021 11:06-0400 Systolic blood pressure 104 mm[Hg] Андрей Claros RN [facility] 06-08-2021 10:05-0400 Body temperature 98.01 [degF] Андрей Claros RN [facility] 06-08-2021 10:05-0400 Diastolic blood pressure 58 mm[Hg] Андрей Claros RN [facility] 06-08-2021 10:05-0400 Heart rate 76 /min Андрей Claros RN [facility] 06-08-2021 10:05-0400 Respiratory rate 16 /min Андрей Claros RN [facility] 06-08-2021 10:05-0400 SaO2% (BldA) [Mass fraction] 92 % Андрей Claros RN [facility] 06-08-2021 10:05-0400 Systolic blood pressure 104 mm[Hg] Андрей Claros RN [facility] 06-01-2021 09:29-0400 Body temperature 98.49 [degF] Андрей Claros RN [facility] 06-01-2021 09:29-0400 Diastolic blood pressure 60 mm[Hg] Андрей Claros RN [facility] 06-01-2021 09:29-0400 Heart rate 62 /min Андрей Claros RN [facility] 06-01-2021 09:29-0400 Respiratory rate 18 /min Андрей Claros RN [facility] 06-01-2021 09:29-0400 SaO2% (BldA) [Mass fraction] 94 % Андрей Claros RN [facility] 06-01-2021 09:29-0400 Systolic blood pressure 104 mm[Hg] Андрей Claros RN [facility] 05-26-2021 09:46-0400 Body temperature 97.5 [degF] Андрей Claros RN [facility] 05-26-2021 09:46-0400 Diastolic blood pressure 60 mm[Hg] Андрей Claros RN [facility] 05-26-2021 09:46-0400 Heart rate 77 /min Андрей Claros RN [facility] 05-26-2021 09:46-0400 Respiratory rate 18 /min Андрей Clraos RN [facility] 05-26-2021 09:46-0400 SaO2% (BldA) [Mass fraction] 93 % Андрей Claros RN [facility] 05-26-2021 09:46-0400 Systolic blood pressure 138 mm[Hg] Андрей Claros RN [facility] 05-17-2021 10:23-0500 Body temperature 98.4 [degF] Андрей Claros RN [facility] 05-17-2021 10:23-0500 Diastolic blood pressure 60 mm[Hg] Андрей Claros RN [facility] 05-17-2021 10:23-0500 Heart rate 74 /min Андрей Claros RN [facility] 05-17-2021 10:23-0500 Respiratory rate 16 /min Андрей Claros RN [facility] 05-17-2021 10:23-0500 SaO2% (BldA) [Mass fraction] 92 % Андрей Claros RN [facility] 05-17-2021 10:23-0500 Systolic blood pressure 120 mm[Hg] Андрей Claros RN [facility] 05-05-2021 10:49-0500 Body temperature 97.7 [degF] Андрей Claros RN [facility] 05-05-2021 10:49-0500 Diastolic blood pressure 74 mm[Hg] Андрей Claros RN [facility] 05-05-2021 10:49-0500 Heart rate 67 /min Андрей Claros RN [facility] 05-05-2021 10:49-0500 Respiratory rate 16 /min Андрей Claros RN [facility] 05-05-2021 10:49-0500 SaO2% (BldA) [Mass fraction] 96 % Андрей Claros RN [facility] 05-05-2021 10:49-0500 Systolic blood pressure 112 mm[Hg] Андрей Claros RN [facility] 04-28-2021 10:01-0500 Body temperature 97.59 [degF] Андрей Claros RN [facility] 04-28-2021 10:01-0500 Diastolic blood pressure 50 mm[Hg] Андрей Claros RN [facility] 04-28-2021 10:01-0500 Heart rate 76 /min Андрей Claros RN [facility] 04-28-2021 10:01-0500 Respiratory rate 16 /min Андрей Claros RN [facility] 04-28-2021 10:01-0500 SaO2% (BldA) [Mass fraction] 97 % Андрей Claros RN [facility] 04-28-2021 10:01-0500 Systolic blood pressure 112 mm[Hg] Андрей Claros RN [facility] 04-23-2021 11:42-0500 Body temperature 97.59 [degF] Андрей Claros RN [facility] 04-23-2021 11:42-0500 Diastolic blood pressure 70 mm[Hg] Андрей Claros RN [facility] 04-23-2021 11:42-0500 Heart rate 76 /min Андрей Claros RN [facility] 04-23-2021 11:42-0500 Respiratory rate 16 /min Андрей Claros RN [facility] 04-23-2021 11:42-0500 SaO2% (BldA) [Mass fraction] 97 % Андрей Claros RN [facility] 04-23-2021 11:42-0500 Systolic blood pressure 118 mm[Hg] Андрей Claros RN [facility] 04-09-2021 11:23-0500 Body temperature 98.01 [degF] Андрей Claros RN [facility] 04-09-2021 11:23-0500 Diastolic blood pressure 50 mm[Hg] Андрей Claros RN [facility] 04-09-2021 11:23-0500 Heart rate 64 /min Андрей Claros RN [facility] 04-09-2021 11:23-0500 Respiratory rate 16 /min Андрей Claros RN [facility] 04-09-2021 11:23-0500 SaO2% (BldA) [Mass fraction] 95 % Андрей Claros RN [facility] 04-09-2021 11:23-0500 Systolic blood pressure 106 mm[Hg] Андрей Claros RN [facility] 04-01-2021 09:25-0500 Body height 163.83 cm Rosy Tavarez LPN [facility], [facility].; [facility], [facility]. 04-01-2021 09:25-0500 Body mass index (BMI) [Ratio] 31.6 kg/m2 Rosy Tavarez LPN [facility], [facility].; [facility], [facility] 04-01-2021 09:25-0500 Body surface area Derived from formula 1.91 m2 Rosy Tavarez LPN [facility].; [facility]. 04-01-2021 09:25-0500 Body weight 84.82 kg Rosy [facility]. 04-01-2021 09:25-0500 Diastolic blood pressure 68 mm[Hg] Rosy [facility]avarez [facility].; [facility]. 04-01-2021 09:25-0500 Heart rate 74 /min [facility]. 04-01-2021 09:25-0500 Systolic blood pressure 118 mm[Hg] Rosy Tavarez [facility].; [facility]. 03-31-2021 10:24-0500 Body temperature 98.2 [degF] Андрей Claros RN [facility] 03-31-2021 10:24-0500 Diastolic blood pressure 60 mm[Hg] Андрей Claros RN [facility] 03-31-2021 10:24-0500 Heart rate 65 /min Андрей Claros RN [facility] 03-31-2021 10:24-0500 Respiratory rate 16 /min Андрей Claros RN [facility] 03-31-2021 10:24-0500 SaO2% (BldA) [Mass fraction] 95 % Андрей Claros RN [facility] 03-31-2021 10:24-0500 Systolic blood pressure 104 mm[Hg] Андрей Claros RN [facility] 03-22-2021 14:10-0500 Body temperature 98.91 [degF] Андрей Claros RN [facility] 03-22-2021 14:10-0500 Diastolic blood pressure 58 mm[Hg] Андрей Claros RN [facility] 03-22-2021 14:10-0500 Heart rate 68 /min Андрей Claros RN [facility] 03-22-2021 14:10-0500 Respiratory rate 16 /min Андрей Claros RN [facility] 03-22-2021 14:10-0500 SaO2% (BldA) [Mass fraction] 97 % нАдрей Claros RN [facility] 03-22-2021 14:10-0500 Systolic blood pressure 104 mm[Hg] Андрей Claros RN [facility] 03-19-2021 15:04-0500 Body temperature 97.9 [degF] Андрей Claros RN [facility] 03-19-2021 15:04-0500 Diastolic blood pressure 48 mm[Hg] Андрей Claros RN [facility] 03-19-2021 15:04-0500 Heart rate 62 /min Андрей Claros RN [facility] 03-19-2021 15:04-0500 Respiratory rate 16 /min Андрей Claros RN [facility] 03-19-2021 15:04-0500 SaO2% (BldA) [Mass fraction] 96 % Андрей Claros RN [facility] 03-19-2021 15:04-0500 Systolic blood pressure 98 mm[Hg] Андрей Claros RN [facility] 03-17-2021 09:16-0500 Body temperature 98.8 [degF] Ewa Garcia [facility] 03-17-2021 09:16-0500 Diastolic blood pressure 58 mm[Hg] Ewa Garcia [facility] 03-17-2021 09:16-0500 Heart rate 74 /min Ewa Garcia [facility] 03-17-2021 09:16-0500 Respiratory rate 16 /min Ewa Garcia [facility] 03-17-2021 09:16-0500 SaO2% (BldA) [Mass fraction] 95 % Ewa Garcia [facility] 03-17-2021 09:16-0500 Systolic blood pressure 116 mm[Hg] Ewa Garcia [facility] 03-10-2021 12:19-0500 Body temperature 98.1 [degF] Андрей Claros RN [facility] 03-10-2021 12:19-0500 Diastolic blood pressure 60 mm[Hg] Андрей Claros RN [facility] 03-10-2021 12:19-0500 Heart rate 64 /min Андрей Claros RN [facility] 03-10-2021 12:19-0500 Respiratory rate 14 /min Андрей Claros RN [facility] 03-10-2021 12:19-0500 SaO2% (BldA) [Mass fraction] 97 % Андрей Claros RN [facility] 03-10-2021 12:19-0500 Systolic blood pressure 104 mm[Hg] Андрей Claros RN [facility] 03-05-2021 11:46-0500 Body mass index (BMI) [Ratio] 28.19 kg/m2 Melida Cook [facility] 03-05-2021 11:46-0500 Body temperature 97.59 [degF] Melida Cook RN [facility] 03-05-2021 11:46-0500 Body weight 81.65 kg Melida Cook RN [facility] 03-05-2021 11:46-0500 Diastolic blood pressure 70 mm[Hg] Melida Cook RN [facility] 03-05-2021 11:46-0500 Heart rate 65 /min Melida Cook RN [facility] 03-05-2021 11:46-0500 Respiratory rate 18 /min Melida Cook RN [facility] 03-05-2021 11:46-0500 SaO2% (BldA) [Mass fraction] 96 % Melida Cook [facility] 03-05-2021 11:46-0500 Systolic blood pressure 110 mm[Hg] Melida Cook [facility] 03-03-2021 11:38-0500 Body temperature 98.01 [degF] Андрей Claros RN [facility] 03-03-2021 11:38-0500 Diastolic blood pressure 62 mm[Hg] Андрей Claros RN [facility] 03-03-2021 11:38-0500 Heart rate 77 /min Андрей Claros RN [facility] 03-03-2021 11:38-0500 Respiratory rate 16 /min Андрей Claros RN [facility] 03-03-2021 11:38-0500 SaO2% (BldA) [Mass fraction] 98 % Андрей Claros RN [facility] 03-03-2021 11:38-0500 Systolic blood pressure 104 mm[Hg] Андрей Claros RN [facility] 02-19-2021 12:01-0500 Body temperature 98.01 [degF] Rosy Rodriguez RN [facility] 02-19-2021 12:01-0500 Heart rate 70 /min Rosy Rodriguez RN [facility] 02-19-2021 12:01-0500 Respiratory rate 16 /min Rosy Rodriguez RN [facility] 02-19-2021 12:01-0500 SaO2% (BldA) [Mass fraction] 98 % Rosy Rodriguez RN [facility] 02-15-2021 13:04-0500 Body temperature 98.01 [degF] Rosy Rodriguez RN [facility] 02-15-2021 13:04-0500 Diastolic blood pressure 70 mm[Hg] Rosy Rodriguez RN [facility] 02-15-2021 13:04-0500 Heart rate 77 /min Rosy Rodriguez RN [facility] 02-15-2021 13:04-0500 Respiratory rate 16 /min Rosy Rodriguez RN [facility] 02-15-2021 13:04-0500 SaO2% (BldA) [Mass fraction] 94 % Rosy Rodriguez RN [facility] 02-15-2021 13:04-0500 Systolic blood pressure 120 mm[Hg] Rosy Rodriguez RN [facility] 02-05-2021 14:04-0500 Body temperature 98.01 [degF] Rosy Rodriguez RN [facility] 02-05-2021 14:04-0500 Heart rate 70 /min Rosy Rodriguez RN [facility] 02-05-2021 14:04-0500 Respiratory rate 16 /min Rosy Rodriguez RN [facility] 02-05-2021 14:04-0500 SaO2% (BldA) [Mass fraction] 96 % Rosy Rodriguez RN [facility] 02-03-2021 10:57-0500 Body height 170.2 cm Jalil Sparks MD Work Phone: [facility] 02-03-2021 10:57-0500 Body mass index (BMI) [Ratio] 27.91 kg/m2 Jalil Sparks MD Work Phone: [facility] 02-03-2021 10:57-0500 Body temperature 97.3 [degF] Jalil Sparks MD Work Phone: [facility] 02-03-2021 10:57-0500 Body weight 80.83 kg Jalil Sparks MD Work Phone: [facility] 02-03-2021 10:57-0500 Diastolic blood pressure 58 mm[Hg] Jalil Sparks MD Work Phone: [facility] 02-03-2021 10:57-0500 Heart rate 75 /min Jalil Sparks MD Work Phone: [facility] 02-03-2021 10:57-0500 SaO2% (BldA) [Mass fraction] 96 % Jalil Sparks MD Work Phone: [facility] 02-03-2021 10:57-0500 Systolic blood pressure 111 mm[Hg] Jalil Sparks MD Work Phone: [facility] 02-03-2021 08:24-0500 Body temperature 98.1 [degF] Bonnie Ferguson RN [facility] 02-03-2021 08:24-0500 Diastolic blood pressure 50 mm[Hg] Bonnie Ferguson RN [facility] 02-03-2021 08:24-0500 Heart rate 75 /min Bonnie Ferguson RN [facility] 02-03-2021 08:24-0500 Respiratory rate 18 /min Bonnie Ferguson RN [facility] 02-03-2021 08:24-0500 SaO2% (BldA) [Mass fraction] 96 % Bonnie Ferguson [facility] 02-03-2021 08:24-0500 Systolic blood pressure 132 mm[Hg] Bonnie Ferguson RN [facility] 02-01-2021 14:13-0500 Body temperature 98.01 [degF] Rosy Rodriguez RN [facility] 02-01-2021 14:13-0500 Respiratory rate 16 /min Rosy Rodriguez RN [facility] 02-01-2021 14:13-0500 SaO2% (BldA) [Mass fraction] 96 % Rosy Rodriguez RN [facility] 01-29-2021 00:00-0500 Body temperature 98.01 [degF] Rosy Rodriguez RN [facility] 01-29-2021 00:00-0500 Diastolic blood pressure 60 mm[Hg] Rosy Rodriguez RN [facility] 01-29-2021 00:00-0500 Heart rate 78 /min Rosy Rodriguez RN [facility] 01-29-2021 00:00-0500 Respiratory rate 16 /min Rosy Jennifer RN [facility] 01-29-2021 00:00-0500 SaO2% (BldA) [Mass fraction] 96 % Rosy Rodriguez RN [facility] 01-29-2021 00:00-0500 Systolic blood pressure 110 mm[Hg] Rosy Rodriguez RN [facility] 01-27-2021 10:02-0500 Body temperature 98.01 [degF] Rosy Rodriguez RN [facility] 01-27-2021 10:02-0500 Diastolic blood pressure 60 mm[Hg] Rosy Rodriguez RN [facility] 01-27-2021 10:02-0500 Heart rate 80 /min Rosy Rodriguez RN [facility] 01-27-2021 10:02-0500 Respiratory rate 16 /min Rosy Rodriguez RN [facility] 01-27-2021 10:02-0500 SaO2% (BldA) [Mass fraction] 94 % Rosy [place] RN [facility] 01-27-2021 10:02-0500 Systolic blood pressure 110 mm[Hg] Rosy Jennifer RN [facility] 01-25-2021 10:00-0500 Body temperature 98.01 [degF] Rosy Jennifer RN [facility] 01-25-2021 10:00-0500 Diastolic blood pressure 70 mm[Hg] Rosy Rodriguez RN [facility] 01-25-2021 10:00-0500 Heart rate 88 /min Rosy [place] RN [facility] 01-25-2021 10:00-0500 Respiratory rate 16 /min Rosy [place] RN [facility] 01-25-2021 10:00-0500 SaO2% (BldA) [Mass fraction] 98 % Rosy Jennifer RN [facility] 01-25-2021 10:00-0500 Systolic blood pressure 110 mm[Hg] Rosy Jennifer RN [facility] 01-22-2021 13:55-0500 Body mass index (BMI) [Ratio] 27.72 kg/m2 Rosy Jennifer RN [facility] 01-22-2021 13:55-0500 Body weight 80.29 kg Rosy Jennifer RN [facility] 01-22-2021 13:55-0500 Diastolic blood pressure 80 mm[Hg] Rosy Rodriguez RN [facility] 01-22-2021 13:55-0500 Systolic blood pressure 101 mm[Hg] Rosy Rodriguez RN [facility] 01-20-2021 10:22-0500 Body temperature 98.2 [degF] Alyssa Cortez RN [facility] 01-20-2021 10:22-0500 Heart rate 63 /min Alyssa Cortez RN [facility] 01-20-2021 10:22-0500 SaO2% (BldA) [Mass fraction] 93 % Alyssa Cortez RN [facility] 01-13-2021 15:21-0400 Body height 170.2 cm Jalil Sparks MD Work Phone: [place] [address]-03-2021 15:21-0400 Body temperature 97.59 [degF] Jalil Sparks MD Work Phone: [facility] 01-13-2021 15:21-0400 Diastolic blood pressure 73 mm[Hg] Jalil Sparks MD Work Phone: [facility] 01-13-2021 15:21-0400 Heart rate 68 /min Jalil Sparks MD Work Phone: [facility] 01-13-2021 15:21-0400 SaO2% (BldA) [Mass fraction] 91 % Jalil Sparks MD Work Phone: [facility] 01-13-2021 15:21-0400 Systolic blood pressure 146 mm[Hg] Jalil Sparks MD Work Phone: [facility] 01-04-2021 14:50-0400 Body height 170.2 cm [place] [employer] Work Phone: [facility] 01-04-2021 14:50-0400 Body mass index (BMI) [Ratio] 29.76 kg/m2 [place] [employer] Work Phone: [facility] 01-04-2021 14:50-0400 Body weight 86.18 kg [place] [employer] CHECKER Work Phone: [facility] 01-04-2021 14:50-0400 Diastolic blood pressure 57 mm[Hg] [place] Hawk LINER CHECKER Work Phone: [facility] 01-04-2021 14:50-0400 Heart rate 74 /min [place] LINER CHECKER Work Phone: [facility] 01-04-2021 14:50-0400 Systolic blood pressure 132 mm[Hg] [place] Hawk [employer] CHECKER Work Phone: [facility] 12-17-2020 12:11-0400 Body height 170.2 cm Lenin Ramirez MD Work Phone: [facility] 12-17-2020 12:11-0400 Body mass index (BMI) [Ratio] 30.23 kg/m2 Lenin Ramirez MD Work Phone: [facility] 12-17-2020 12:11-0400 Body weight 87.54 kg Lenin Ramirez MD Work Phone: [facility] 12-17-2020 12:11-0400 Diastolic blood pressure 77 mm[Hg] Lenin Ramirez MD Work Phone: [facility] 12-17-2020 12:11-0400 Heart rate 63 /min Lenin Ramirez MD Work Phone: [facility] 12-17-2020 12:11-0400 SaO2% (BldA) [Mass fraction] 90 % Lenin Ramirez MD Work Phone: [facility] 12-17-2020 12:11-0400 Systolic blood pressure 129 mm[Hg] Lenin Ramirez MD Work Phone: [facility] 11-23-2020 12:52-0400 Body height 170.2 cm Park Hawk CNP Work Phone: [facility] 11-23-2020 12:52-0400 Body mass index (BMI) [Ratio] 29.44 kg/m2 Park Hawk CNP Work Phone: [facility] 11-23-2020 12:52-0400 Body weight 85.28 kg Park Hawk CNP Work Phone: [facility] 11-23-2020 12:52-0400 Diastolic blood pressure 76 mm[Hg] Park Hawk CNP Work Phone: [facility] 11-23-2020 12:52-0400 Heart rate 63 /min [place] [employer] CHECK[employer] Work Phone: [facility] 11-23-2020 12:52-0400 SaO2% (BldA) [Mass fraction] 90 % [place] [employer] CHECK[employer] Work Phone: [facility] 11-23-2020 12:52-0400 Systolic blood pressure 131 mm[Hg] [place] [employer] CHECKER Work Phone: [facility] 10-26-2020 07:55-0400 Body height 170.2 cm Park Hawk CNP Work Phone: [facility] 10-26-2020 07:55-0400 Body mass index (BMI) [Ratio] 29.29 kg/m2 Park Hawk CNP Work Phone: [facility] 10-26-2020 07:55-0400 Body weight 84.82 kg Park Hawk CNP Work Phone: [facility] 10-26-2020 07:55-0400 Diastolic blood pressure 77 mm[Hg] Park Hawk CNP Work Phone: [facility] 10-26-2020 07:55-0400 Heart rate 66 /min [place] Hawk CNP Work Phone: [facility] 10-26-2020 07:55-0400 SaO2% (BldA) [Mass fraction] 84 % Park Hawk CNP Work Phone: [facility] 10-26-2020 07:55-0400 Systolic blood pressure 143 mm[Hg] Park Hawk CNP Work Phone: [facility] 10-21-2020 08:11-0400 Diastolic blood pressure 89 mm[Hg] Mil Dee MD Work Phone: [facility] 10-21-2020 08:11-0400 Systolic blood pressure 164 mm[Hg] Mil Dee MD Work Phone: [facility] 10-21-2020 08:07-0400 Body height 170.2 cm Mil Dee MD Work Phone: [facility] 10-21-2020 08:07-0400 Body temperature 98.2 [degF] Mil Dee MD Work Phone: [facility] 10-21-2020 08:07-0400 Heart rate 74 /min Mil Dee MD Work Phone: [facility] 10-06-2020 08:15-0400 Body height 163.83 cm [facility]. 10-06-2020 08:15-0400 Body mass index (BMI) [Ratio] 31.26 kg/m2 Muna Townsend [facility], [facility].; [facility]. 10-06-2020 08:15-0400 Body surface area Derived from formula 1.9 m2 [facility], [facility].; [facility]. 10-06-2020 08:15-0400 Body weight 83.92 kg Muna Townsend [facility], [facility].; [facility]. 10-06-2020 08:15-0400 Diastolic blood pressure 73 mm[Hg] [facility], [facility].; [facility], [facility]. 10-06-2020 08:15-0400 Heart rate 75 /min [facility], [facility].; [facility]. 10-06-2020 08:15-0400 Inhaled oxygen concentration 20 % [facility]. 10-06-2020 08:15-0400 SaO2% (BldA) [Mass fraction] 97 % [facility], [facility].; [facility], [facility]. 10-06-2020 08:15-0400 Systolic blood pressure 152 mm[Hg] [facility] [place] [facility], [facility].; [facility]. 09-30-2020 08:21-0400 Body mass index (BMI) [Ratio] 28.35 kg/m2 Leonila Walls RN [facility] 09-30-2020 [id number] Body weight 82.1 kg Leonila Walls RN [facility] 09-30-2020 08:21-0400 Diastolic blood pressure 73 mm[Hg] Leonila Walls RN [facility] 09-30-2020 08:21-0400 Heart rate 55 /min Leonila Walls RN [facility] 09-30-2020 08:21-0400 Respiratory rate 16 /min Leonila Walls RN [facility] 09-30-2020 [id number] SaO2% (BldA) [Mass fraction] 98 % Leonila Walls RN [facility] 09-30-2020 [id number] Systolic blood pressure 129 mm[Hg] Leonila Walls RN [facility] 08-11-2020 08:26-0400 Body height 163.83 cm [facility], [facility].; [facility]. 08-11-2020 [id number] Body mass index (BMI) [Ratio] 33.29 kg/m2 [facility], [facility].; [facility]. 08-11-2020 08:0400 Body surface area Derived from formula 1.95 m2 [facility], [facility].; [facility], [facility]. 08-11-2020 08:0400 Body weight 89.36 kg [facility], [facility].; [facility], [facility]. 08-11-2020 [id number] Diastolic blood pressure 64 mm[Hg] [facility], [facility].; [facility], [facility]. 08-11-2020 08:0400 Heart rate 71 /min [facility], [facility].; [facility], [facility]. 08-11-2020 08:26-0400 Systolic blood pressure 138 mm[Hg] [facility], [facility].; [facility], [facility]. 08-03-2020 [id number] Body mass index (BMI) [Ratio] 30.85 kg/m2 Leonila Walls RN [facility] 08-03-2020 13:0400 Body weight 89.36 kg Leonila Walls RN [facility] 08-03-2020 13:0400 Diastolic blood pressure 76 mm[Hg] Leonila Walls RN [facility] 08-03-2020 [id number] Heart rate 68 /min Leonila Walls RN [facility] 08-03-2020 13:0400 Respiratory rate 16 /min Leonila [facility] 08-03-2020 13:21-0400 SaO2% (BldA) [Mass fraction] 93 % Leonila [facility] 08-03-2020 13:21-0400 Systolic blood pressure 139 mm[Hg] Leonilaeloy Walls [facility] 06-19-2020 10:40-0400 BMI (Body Mass Index) 31.92 kg/m2 [facility] 06-19-2020 10:40-0400 Body weight 92.44 kg [facility] 06-19-2020 10:40-0400 BP Diastolic 79 mm[Hg] [facility] 06-19-2020 10:40-0400 BP Systolic 147 mm[Hg] [facility] 06-19-2020 10:40-0400 Pulse (Heart Rate) 62 /min [facility] 06-19-2020 10:40-0400 Pulse Oximetry 94 % [facility] 06-19-2020 10:40-0400 Respiratory Rate 16 /min [facility] 04-20-2020 10:18-0500 BMI (Body Mass Index) 32.11 kg/m2 [facility] 04-20-2020 10:18-0500 Body weight 92.99 kg [facility] 04-20-2020 10:18-0500 BP Diastolic 76 mm[Hg] [facility] 04-20-2020 10:18-0500 BP Systolic 129 mm[Hg] [facility] 04-20-2020 10:18-0500 Pulse (Heart Rate) 66 /min [facility] 04-20-2020 10:18-0500 Pulse Oximetry 96 % [facility] 04-20-2020 10:18-0500 Respiratory Rate 16 /min [facility] 04-07-2020 09:08-0500 Body height 163.83 cm Muna Townsend LPN [facility], [facility]. 04-07-2020 09:08-0500 Body mass index (BMI) [Ratio] 34.98 kg/m2 [facility], [facility].; [facility], [facility]. 04-07-2020 09:08-0500 Body surface area Derived from formula 2 m2 Muna Townsend [facility], [facility].; [facility], [facility]. 04-07-2020 09:08-0500 Body weight 93.9 kg Muna Townsend [facility], [facility].; [facility], [facility]. 04-07-2020 09:08-0500 Diastolic blood pressure 76 mm[Hg] Muna Townsend [facility], [facility].; [facility], [facility]. 04-07-2020 09:08-0500 Heart rate 91 /min Muna Townsend [facility], [facility].; [facility], [facility]. 04-07-2020 09:08-0500 Systolic blood pressure 137 mm[Hg] Muna Townsend [facility], [facility].; [facility], [facility]. 03-26-2020 10:27-0500 BP Diastolic 64 mm[Hg] [facility] 03-26-2020 10:27-0500 BP Systolic 130 mm[Hg] Lenin Ramirez [facility] 03-26-2020 10:27-0500 Pulse (Heart Rate) 62 /min Lenin Ramirez [facility] 02-17-2020 10:14-0500 BMI (Body Mass Index) 31.84 kg/m2 [facility] 02-17-2020 10:14-0500 Body weight 92.22 kg [facility] 02-17-2020 10:14-0500 BP Diastolic 74 mm[Hg] [facility] 02-17-2020 10:14-0500 BP Systolic 140 mm[Hg] [facility] 02-17-2020 10:14-0500 Pulse (Heart Rate) 62 /min [facility] 02-17-2020 10:14-0500 Pulse Oximetry 97 % [facility] 02-17-2020 10:14-0500 Respiratory Rate 16 /min [facility] 12-23-2019 10:12-0400 BMI (Body Mass Index) 32.7 kg/m2 [facility] 12-23-2019 10:12-0400 Body weight 94.71 kg [facility] 12-23-2019 10:12-0400 BP Diastolic 73 mm[Hg] [facility] 12-23-2019 10:12-0400 BP Systolic 136 mm[Hg] [facility] 12-23-2019 10:12-0400 Pulse (Heart Rate) 62 /min [facility] 12-23-2019 10:120400 Pulse Oximetry 95 % [facility] 12-23-2019 10:120400 Respiratory Rate 16 /min [facility] 11-27-2019 11:10-0400 Body height 163.83 cm Muna Townsend [employer] [facility], [facility].; [facility], [employer]. 11-27-2019 11:10-0400 Body mass index (BMI) [Ratio] 36.5 kg/m2 [facility], [employer]. 11-27-2019 11:10-0400 Body surface area Derived from formula 2.03 m2 [facility], [facility].; [facility], [employer]. 11-27-2019 11:10-0400 Body weight 97.98 kg [facility], [employer]. 11-27-2019 11:10-0400 Diastolic blood pressure 82 mm[Hg] Adeline Stuckey [facility], [employer]. 11-27-2019 11:10-0400 Heart rate 69 /min [facility], [facility].; [facility], [employer]. 11-27-2019 11:10-0400 Inhaled oxygen concentration 20 % [facility], [facility].; [employer], [employer]. 11-27-2019 11:10-0400 SaO2% (BldA) [Mass fraction] 93 % [facility], [facility].; [facility]. 11-27-2019 11:10-0400 Systolic blood pressure 160 mm[Hg] Muna Townsend ASHER [facility], [facility].; [facility] 11-04-2019 10:07-0400 BMI (Body Mass Index) 34.3 kg/m2 [facility] 11-04-2019 10:07-0400 Body weight 99.34 kg [facility] 11-04-2019 10:07-0400 BP Diastolic 83 mm[Hg] [facility] 11-04-2019 10:07-0400 BP Systolic 150 mm[Hg] [facility] 11-04-2019 10:07-0400 Pulse (Heart Rate) 68 /min [facility] 11-04-2019 10:07-0400 Pulse Oximetry 95 % [facility] 11-04-2019 10:07-0400 Respiratory Rate 16 /min [facility] 09-20-2019 08:49-0400 Body height 163.83 cm Umu Nye RN [facility], [facility].; [facility]. 09-20-2019 08:49-0400 Body mass index (BMI) [Ratio] 38.19 kg/m2 Umu Nye RN [facility], [facility].; [facility], [facility]. 09-20-2019 08:49-0400 Body surface area Derived from formula 2.07 m2 Umu Nye RN [facility], [facility].; [facility]. 09-20-2019 08:49-0400 Body weight 102.51 kg Umu Nye RN [facility], [facility].; [facility], [facility]. 09-20-2019 08:49-0400 Diastolic blood pressure 72 mm[Hg] Umu Nye RN [facility], [facility].; [facility], [facility]. 09-20-2019 08:49-0400 Heart rate 69 /min Umu yNe RN [facility], [facility].; [facility], [facility]. 09-20-2019 08:49-0400 Systolic blood pressure 129 mm[Hg] Umu Nye RN [facility], [facility].; [facility] 09-09-2019 10:12-0400 BMI (Body Mass Index) 33.99 kg/m2 [facility] 09-09-2019 10:12-0400 Body weight 98.43 kg [facility] 09-09-2019 10:12-0400 BP Diastolic 84 mm[Hg] [facility] 09-09-2019 10:12-0400 BP Systolic 152 mm[Hg] [facility] 09-09-2019 10:12-0400 Pulse (Heart Rate) 72 /min [facility] 09-09-2019 10:12-0400 Pulse Oximetry 96 % [facility] 09-09-2019 10:12-0400 Respiratory Rate 16 /min [facility] 07-31-2019 09:20-0400 BMI (Body Mass Index) 34.44 kg/m2 [facility] 07-31-2019 09:20-0400 Body weight 99.75 kg [facility] 07-31-2019 09:20-0400 BP Diastolic 88 mm[Hg] [facility] 07-31-2019 09:20-0400 BP Systolic 169 mm[Hg] [facility] 07-31-2019 09:20-0400 Pulse (Heart Rate) 72 /min [facility] 07-31-2019 09:20-0400 Pulse Oximetry 94 % [facility] 07-31-2019 09:20-0400 Respiratory Rate 16 /min [facility] 06-06-2019 13:03-0400 Body height 163.83 cm Rosy Tavarez LPN [facility], [facility]. 06-06-2019 13:03-0400 Body mass index (BMI) [Ratio] 36.67 kg/m2 Rosy Tavarez LPN [facility], [facility]. 06-06-2019 13:03-0400 Body surface area Derived from formula 2.04 m2 Rosy Tavarez LPN [facility], [facility]. 06-06-2019 13:03-0400 Body temperature 98 [degF] [facility].; [facility]. 06-06-2019 13:03-0400 Body weight 98.43 kg Rosy Balllabach [facility].; [facility]. 06-06-2019 13:03-0400 Diastolic blood pressure 77 mm[Hg] Rosy Allison Corby [facility].; [facility]. 06-06-2019 13:03-0400 Heart rate 81 /min Rosy Balllabach [facility].; [facility] [facility]. 06-06-2019 13:03-0400 Inhaled oxygen concentration 20 % Rosy Allison Corby [facility].; [facility] 06-06-2019 13:03-0400 SaO2% (BldA) [Mass fraction] 97 % Rosy Allison Corby [facility] [facility].; [employer] 06-06-2019 13:03-0400 Systolic blood pressure 168 mm[Hg] [facility]y [facility]ach [facility].; [facility]. 05-24-2019 10:08-0400 BMI (Body Mass Index) 34.24 kg/m2 [facility] 05-24-2019 10:08-0400 Body weight 99.16 kg [facility] 05-24-2019 10:08-0400 BP Diastolic 87 mm[Hg] [facility] 05-24-2019 10:08-0400 BP Systolic 139 mm[Hg] [facility] 05-24-2019 10:08-0400 Pulse (Heart Rate) 70 /min [facility] 05-24-2019 10:08-0400 Pulse Oximetry 93 % [facility] 05-24-2019 10:08-0400 Respiratory Rate 16 /min [facility] 03-27-2019 08:27-0500 Body height 163.83 cm Zack Olmos MD Work Phone: [employer] 03-27-2019 08:27-0500 Body mass index (BMI) [Ratio] 38.19 kg/m2 Zack Olmos MD Work Phone: [employer] 03-27-2019 08:27-0500 Body surface area Derived from formula 2.07 m2 Zack Olmos MD Work Phone: [employer] 03-27-2019 08:27-0500 Body weight 102.51 kg Zack Olmos MD Work Phone: [employer] 03-27-2019 08:27-0500 Diastolic blood pressure 84 mm[Hg] Zack Olmos MD Work Phone: [employer] 03-27-2019 08:27-0500 Heart rate 66 /min Zack Olmos MD Work Phone: [employer].; [employer] 03-27-2019 08:27-0500 Systolic blood pressure 157 mm[Hg] Zack Olmos MD Work Phone: [employer] 03-25-2019 10:21-0500 BP Diastolic 88 mm[Hg] [facility] 03-25-2019 10:21-0500 BP Systolic 178 mm[Hg] [facility] 03-25-2019 10:16-0500 Pulse (Heart Rate) 66 /min [facility] 03-25-2019 10:16-0500 Pulse Oximetry 94 % [facility] 03-25-2019 10:16-0500 Respiratory Rate 16 /min [facility] 02-28-2019 13:45-0500 BMI (Body Mass Index) 35.63 kg/m2 [facility] 02-28-2019 13:45-0500 Body weight 103.19 kg Lenin James [facility] 02-28-2019 13:45-0500 BP Diastolic 82 mm[Hg] Lenin Ramirez [facility] 02-28-2019 13:45-0500 BP Systolic 153 mm[Hg] Lenin Ramirez [facility] 02-28-2019 13:45-0500 Height 170.2 cm Lenin Ramirez [facility] 02-28-2019 13:45-0500 Pulse (Heart Rate) 67 /min Lenin Ramirez [facility] 02-28-2019 13:45-0500 Pulse Oximetry 95 % Lenin Ramirez [facility] 01-28-2019 11:13-0500 BMI (Body Mass Index) 34.97 kg/m2 [facility] 01-28-2019 11:13-0500 Body weight 101.29 kg [facility] 01-28-2019 11:13-0500 BP Diastolic 85 mm[Hg] [facility] 01-28-2019 11:13-0500 BP Systolic 166 mm[Hg] [facility] 01-28-2019 11:13-0500 Pulse (Heart Rate) 62 /min [facility] 01-28-2019 11:13-0500 Pulse Oximetry 95 % [facility] 01-28-2019 11:13-0500 Respiratory Rate 16 /min [facility] 12-31-2018 10:05-0400 BMI (Body Mass Index) 34.54 kg/m2 [facility] 12-31-2018 10:05-0400 Body weight 100.02 kg [facility] 12-31-2018 10:05-0400 BP Diastolic 62 mm[Hg] [facility] 12-31-2018 10:05-0400 BP Systolic 150 mm[Hg] [facility] 12-31-2018 10:05-0400 Pulse (Heart Rate) 66 /min [facility] 12-31-2018 10:05-0400 Pulse Oximetry 94 % [facility] 12-31-2018 10:05-0400 Respiratory Rate 16 /min [facility] 11-30-2018 10:31-0400 BMI (Body Mass Index) 34.5 kg/m2 [facility] 11-30-2018 10:31-0400 Body weight 99.93 kg [facility] 11-30-2018 10:31-0400 BP Diastolic 88 mm[Hg] [facility] 11-30-2018 10:31-0400 BP Systolic 168 mm[Hg] [facility] 11-30-2018 10:31-0400 Pulse (Heart Rate) 62 /min [facility] 11-30-2018 10:31-0400 Pulse Oximetry 95 % [facility] 11-30-2018 10:31-0400 Respiratory Rate 16 /min [facility] 11-09-2018 10:09-0400 BMI (Body Mass Index) 34.43 kg/m2 [facility] 11-09-2018 10:09-0400 Body weight 99.7 kg [facility] 11-09-2018 10:09-0400 BP Diastolic 92 mm[Hg] [facility] 11-09-2018 10:09-0400 BP Systolic 155 mm[Hg] [facility] 11-09-2018 10:09-0400 Pulse (Heart Rate) 70 /min [facility] 10-12-2018 10:14-0400 BMI (Body Mass Index) 34.28 kg/m2 [facility] 10-12-2018 10:14-0400 Body weight 99.29 kg [facility] 10-12-2018 10:14-0400 BP Diastolic 92 mm[Hg] [facility] 10-12-2018 10:14-0400 BP Systolic 153 mm[Hg] [facility] 10-12-2018 10:14-0400 Pulse (Heart Rate) 70 /min [facility] 10-12-2018 10:14-0400 Pulse Oximetry 93 % [facility] 10-12-2018 10:14-0400 Respiratory Rate 16 /min [facility] 09-25-2018 09:23-0400 Body height 163.83 cm Zack Olmos MD Work Phone: [facility].; [facility], [facility]. 09-25-2018 09:23-0400 Body mass index (BMI) [Ratio] 36.84 kg/m2 Zack Olmos MD Work Phone: [employer] 09-25-2018 09:23-0400 Body surface area Derived from formula 2.04 m2 Zack Olmos MD Work Phone: [employer] 09-25-2018 09:23-0400 Body weight 98.88 kg Zack Olmos MD Work Phone: [employer] 09-25-2018 09:23-0400 Diastolic blood pressure 80 mm[Hg] Zack Olmos MD Work Phone: [employer] 09-25-2018 09:23-0400 Heart rate 76 /min Zack Olmos MD Work Phone: [employer] 09-25-2018 09:23-0400 Systolic blood pressure 132 mm[Hg] Zack Olmos MD Work Phone: [employer] 09-21-2018 11:05-0400 BMI (Body Mass Index) 34.13 kg/m2 [facility] 09-21-2018 11:05-0400 Body weight 98.84 kg [facility] 09-21-2018 11:05-0400 BP Diastolic 77 mm[Hg] [facility] 09-21-2018 11:05-0400 BP Systolic 146 mm[Hg] [facility] 09-21-2018 11:05-0400 Pulse (Heart Rate) 66 /min [facility] 09-21-2018 11:05-0400 Pulse Oximetry 95 % [facility] 09-21-2018 11:05-0400 Respiratory Rate 16 /min [facility] 09-05-2018 11:20-0400 BP Diastolic 72 mm[Hg] [facility] 09-05-2018 11:20-0400 BP Systolic 142 mm[Hg] [facility] 09-05-2018 11:20-0400 Pulse (Heart Rate) 54 /min [facility] 09-05-2018 10:55-0400 BMI (Body Mass Index) 33.39 kg/m2 [facility] 09-05-2018 10:55-0400 Body weight 96.71 kg [facility] 09-05-2018 10:55-0400 Height 170.2 cm [facility] 09-05-2018 10:55-0400 Pulse Oximetry 96 % [facility] 08-31-2018 11:05-0400 BMI (Body Mass Index) 33.17 kg/m2 [facility] 08-31-2018 11:05-0400 BP Diastolic 88 mm[Hg] [facility] 08-31-2018 11:05-0400 BP Systolic 155 mm[Hg] [facility] 08-31-2018 11:05-0400 Pulse (Heart Rate) 50 /min [facility] 08-31-2018 11:05-0400 Pulse Oximetry 95 % [facility] 08-31-2018 11:05-0400 Respiratory Rate 16 /min [facility] 08-31-2018 11:05-0400 Weight 96.07 kg [facility] 08-10-2018 11:19-0400 BMI (Body Mass Index) 34 kg/m2 [facility] 08-10-2018 11:19-0400 BP Diastolic 78 mm[Hg] [facility] 08-10-2018 11:19-0400 BP Systolic 148 mm[Hg] [facility] 08-10-2018 11:19-0400 Pulse (Heart Rate) 72 /min [facility] 08-10-2018 11:19-0400 Pulse Oximetry 95 % [facility] 08-10-2018 11:19-0400 Respiratory Rate 16 /min [facility] 08-10-2018 11:19-0400 Weight 98.48 kg [facility] 08-03-2018 12:17-0400 BMI (Body Mass Index) 34.08 kg/m2 [facility] 08-03-2018 12:17-0400 BP Diastolic 84 mm[Hg] [facility] 08-03-2018 12:17-0400 BP Systolic 141 mm[Hg] [facility] 08-03-2018 12:17-0400 Pulse (Heart Rate) 66 /min [facility] 08-03-2018 12:17-0400 Pulse Oximetry 96 % [facility] 08-03-2018 12:17-0400 Respiratory Rate 16 /min [facility] 08-03-2018 12:17-0400 Weight 98.7 kg [facility] 07-26-2018 08:40-0400 BP Diastolic 72 mm[Hg] [facility] 07-26-2018 08:40-0400 BP Systolic 163 mm[Hg] [facility] 07-26-2018 08:40-0400 Pulse (Heart Rate) 76 /min [facility] 07-26-2018 08:03-0400 BMI (Body Mass Index) 34.57 kg/m2 [facility] 07-26-2018 08:03-0400 Height 170.2 cm [facility] 07-26-2018 08:03-0400 Pulse Oximetry 94 % [facility] 07-26-2018 08:03-0400 Weight 100.11 kg [facility] 07-20-2018 09:41-0400 BP Diastolic 84 mm[Hg] Lenin [facility] 07-20-2018 09:41-0400 BP Systolic 144 mm[Hg] Lenin [facility] 07-20-2018 09:41-0400 Pulse (Heart Rate) 92 /min Lenin Ramirez [facility] 05-30-2018 10:01-0400 Body height 163.83 cm Muna Townsend CLASS B TRUCK DRIVER [facility], [facility].; [facility] 05-30-2018 10:01-0400 Body mass index (BMI) [Ratio] 37.35 kg/m2 Muna Townsend CLASS B TRUCK DRIVER [facility], [facility].; [employer] [facility] 05-30-2018 10:01-0400 Body surface area Derived from formula 2.05 m2 Muna Townsend LPN [facility] [employer] 05-30-2018 10:01-0400 Body weight 100.25 kg Muna Townsend CLASS B TRUCK DRIVER [place] [employer] [facility], [facility].; [employer], [employer]. 05-30-2018 10:01-0400 Diastolic blood pressure 65 mm[Hg] Muna Townsend CLASS B TRUCK DRIVER [employer] [facility] [employer] 05-30-2018 10:01-0400 Heart rate 38 /min Muna Townsend CLASS B TRUCK DRIVER [facility] [employer] 05-30-2018 10:01-0400 Inhaled oxygen concentration 20 % Muna Townsend [facility] [employer] [facility], [employer].; [employer], [employer]. 05-30-2018 10:01-0400 SaO2% (BldA) [Mass fraction] 97 % [facility]una [facility]send [facility] [employer], [employer]. 05-30-2018 10:01-0400 Systolic blood pressure 132 mm[Hg] Muna Townsend [facility] [employer], [employer]. 05-17-2018 12:01-0500 BMI (Body Mass Index) 34.63 kg/m2 Lenin Ramirez [facility] 05-17-2018 12:01-0500 BP Diastolic 59 mm[Hg] Lenin Fraserleatha [facility] 05-17-2018 12:01-0500 BP Systolic 122 mm[Hg] Lenin Evelioleatha [facility] 05-17-2018 12:01-0500 Height 170.2 cm Lenin Davleatha [facility] 05-17-2018 12:01-0500 Pulse (Heart Rate) 39 /min Lenin Evelioleatha [facility] 05-17-2018 12:01-0500 Pulse Oximetry 92 % Lenin Davleatha [facility] 05-17-2018 12:01-0500 Weight 100.29 kg Lenin Davleatha [facility] 05-03-2018 12:15-0500 BMI (Body Mass Index) 36.77 kg/m2 Lenin Fraserleatha [facility] 05-03-2018 12:15-0500 BP Diastolic 85 mm[Hg] Lenin Ramirez [facility] 05-03-2018 12:15-0500 BP Systolic 147 mm[Hg] Lenin Ramirez [facility] 05-03-2018 12:15-0500 Height 170.2 cm Lenin Ramirez [facility] 05-03-2018 12:15-0500 Pulse (Heart Rate) 80 /min Lenin Ramirez [facility] 05-03-2018 12:15-0500 Pulse Oximetry 91 % Lenin Ramirez [facility] 05-03-2018 12:15-0500 Weight 106.5 kg Lenin Ramirez [facility] 04-18-2018 09:15-0500 Body height 163.83 cm Rachel Guera Goodwin LPN [facility], [facility].; [employer], [employer]. 04-18-2018 09:15-0500 Body mass index (BMI) [Ratio] 39.88 kg/m2 Rachel Guera Goodwin CLASS B TRUCK DRIVER [place] [employer] [facility].; [employer], [facility]. 04-18-2018 09:15-0500 Body surface area Derived from formula 2.11 m2 Rachel Guera Goodwin CLASS B TRUCK DRIVER [place] [employer] [facility], [facility].; [employer], [employer]. 04-18-2018 09:15-0500 Body weight 107.05 kg Rachel Guera Goodwin [facility] [employer] [facility], [facility].; [employer], [employer]. 04-18-2018 09:15-0500 Diastolic blood pressure 73 mm[Hg] Rachel Goodwin CLASS B TRUCK DRIVER [place] [employer] [facility].; [facility], [facility]. 04-18-2018 09:15-0500 Heart rate 70 /min Rachel Guera Goodwin LPN [facility], [facility].; [employer], [employer]. 04-18-2018 09:15-0500 Inhaled oxygen concentration 20 % Rachel Guera Osmanbarichard [facility] [employer] [facility], [facility].; [employer], [employer]. 04-18-2018 09:15-0500 SaO2% (BldA) [Mass fraction] 93 % Rachel Guera Samersjosephine CLASS B TRUCK DRIVER [place] [employer] [facility], [facility].; [employer] 04-18-2018 09:15-0500 Systolic blood pressure 150 mm[Hg] Rachel Goodwin LPN [employer] 03-16-2018 10:31-0500 Body height 163.83 cm Umu Nye RN [employer] 03-16-2018 10:31-0500 Body mass index (BMI) [Ratio] 39.21 kg/m2 Umu Nye RN [employer] 03-16-2018 10:31-0500 Body surface area Derived from formula 2.1 m2 Umu Nye RN [employer] 03-16-2018 10:31-0500 Body temperature 98.6 [degF] Umu Nye RN [employer] 03-16-2018 10:31-0500 Body weight 105.24 kg Umu Nye RN [employer] 03-16-2018 10:31-0500 Diastolic blood pressure 71 mm[Hg] Umu Nye RN [employer] 03-16-2018 10:31-0500 Heart rate 76 /min Umu Nye RN [employer] 03-16-2018 10:31-0500 Inhaled oxygen concentration 20 % Umu Nye RN [employer] 03-16-2018 10:31-0500 SaO2% (BldA) [Mass fraction] 94 % Umu Nye RN [employer] 03-16-2018 10:31-0500 Systolic blood pressure 126 mm[Hg] Umu Nye RN [employer] 02-21-2018 08:02-0500 Body height 163.83 cm Sandra King LPN [employer] 02-21-2018 08:02-0500 Body mass index (BMI) [Ratio] 39.04 kg/m2 Sandra Wealonso [place] [employer], [employer].; [employer]. 02-21-2018 08:02-0500 Body surface area Derived from formula 2.09 m2 Sandra Avialonso [place] [employer], [employer]. 02-21-2018 08:02-0500 Body temperature 97.9 [degF] Sandra Fernando CLASS B TRUCK DRIVER [place] [employer] [facility].; [employer] 02-21-2018 08:02-0500 Body weight 104.78 kg Sandra Wealonso CLASS B TRUCK DRIVER [employer], [employer].; [employer]. 02-21-2018 08:02-0500 Diastolic blood pressure 81 mm[Hg] Sandra [facility] [employer] 02-21-2018 08:02-0500 Heart rate 71 /min Sandra Avialonso CLASS B TRUCK DRIVER [employer], [employer] 02-21-2018 08:02-0500 Inhaled oxygen concentration 20 % Sandra [facility]ialonso [facility] [employer], [employer]. 02-21-2018 08:02-0500 SaO2% (BldA) [Mass fraction] 98 % Sandra Avialonso CLASS B TRUCK DRIVER [employer]. 02-21-2018 08:02-0500 Systolic blood pressure 160 mm[Hg] Sandra King LPN [employer] 02-06-2018 08:00-0500 Body height 163.83 cm Rachel Goodwin CLASS B TRUCK DRIVER [employer] 02-06-2018 08:00-0500 Body mass index (BMI) [Ratio] 38.19 kg/m2 Rachel Goodwin CLASS B TRUCK DRIVER [employer]. 02-06-2018 08:00-0500 Body surface area Derived from formula 2.07 m2 Rachel Goodwin [facility], [facility].; [employer], [facility]. 02-06-2018 08:00-0500 Body temperature 99.5 [degF] Rachel Goodwin [facility], Inc.; [employer], [employer]. 02-06-2018 08:00-0500 Body weight 102.51 kg Rachel Goodwin [facility] [employer] [facility], [facility].; [employer], [facility]. 02-06-2018 08:00-0500 Diastolic blood pressure 82 mm[Hg] Rachel Goodwin [facility] [employer] [facility], [facility].; [employer], [employer]. 02-06-2018 08:00-0500 Heart rate 85 /min Rachel Goodwin [facility] [employer] [facility], [facility].; [employer], [employer]. 02-06-2018 08:00-0500 Inhaled oxygen concentration 20 % Rachelanahy Goodwin [facility] [employer] [facility], [facility].; [employer], [employer]. 02-06-2018 08:00-0500 SaO2% (BldA) [Mass fraction] 95 % Rachelanahy Goodwin [facility] [employer] [facility], [facility].; [employer], [employer]. 02-06-2018 08:00-0500 Systolic blood pressure 146 mm[Hg] Rachel Goodwin [facility] [employer] [facility], [facility].; [employer], [employer]. 12-26-2017 08:42-0400 Body height 163.83 cm Muna Townsend [facility] [employer] [facility], [facility].; [employer], [employer]. 12-26-2017 08:42-0400 Body mass index (BMI) [Ratio] 39.38 kg/m2 Muna Townsend [facility] [employer] [facility], [employer].; [employer], [employer]. 12-26-2017 08:42-0400 Body surface area Derived from formula 2.1 m2 Muna Townsend [facility] [employer] [facility], [facility].; [employer]. 12-26-2017 08:42-0400 Body temperature 97.5 [degF] Muna Townsend CLASS B TRUCK DRIVER [facility], [facility].; [employer] [facility] 12-26-2017 08:42-0400 Body weight 105.69 kg Muna Townsend ASHER [facility], Inc.; [employer] [facility], Inc[facility] 12-26-2017 08:42-0400 Diastolic blood pressure 80 mm[Hg] Muna Townsend ASHER [facility], Inc.; [employer], [employer] 12-26-2017 08:42-0400 Heart rate 83 /min AdelineMaren Townsend ASHER [facility], Inc.; [employer], [employer] 12-26-2017 08:42-0400 Inhaled oxygen concentration 20 % AdelineMaren Townsend ASHER [facility], Inc.; [facility], Inc[facility] 12-26-2017 08:42-0400 SaO2% (BldA) [Mass fraction] 96 % AdelineMaren Townsend ASHER [facility], Inc.; [employer], [employer] 12-26-2017 08:42-0400 Systolic blood pressure 145 mm[Hg] Muna Townsend ASHER [facility], Inc.; [employer], [employer] 11-07-2017 09:17-0400 Body height 163.83 cm Muna Townsend ASHER [facility], Inc.; [employer], [employer] 11-07-2017 09:17-0400 Body mass index (BMI) [Ratio] 38.7 kg/m2 Adeline Cary ASHER [facility], Inc.; [employer], [employer] 11-07-2017 09:17-0400 Body surface area Derived from formula 2.08 m2 Adeline [place] ASHER [place] [employer] [facility], Inc.; [employer], [employer] 11-07-2017 09:17-0400 Body weight 103.87 kg Adeline [place] ASHER [facility], Inc.; [employer], [employer] 11-07-2017 09:17-0400 Diastolic blood pressure 73 mm[Hg] AdelineMaren Barrettey ASHER [place] [employer] [facility], [facility].; [employer], [employer] 11-07-2017 09:17-0400 Heart rate 82 /min Muna Townsend ASHER [employer], [employer] 11-07-2017 09:17-0400 Systolic blood pressure 144 mm[Hg] Muna Townsend CLASS B TRUCK DRIVER [employer] 10-09-2017 08:22-0400 Body height 163.83 cm Johnny Corcoran [facility] [employer], [employer].; [employer] 10-09-2017 08:22-0400 Body mass index (BMI) [Ratio] 39.21 kg/m2 Johnny Corcoran [facility] [employer], [employer].; [employer] 10-09-2017 08:22-0400 Body surface area Derived from formula 2.1 m2 Johnny Corcoran [facility] [employer], [employer].; [employer] 10-09-2017 08:22-0400 Body weight 105.24 kg Johnny Corcoran [facility] [employer], [employer].; [employer] 10-09-2017 08:22-0400 Diastolic blood pressure 91 mm[Hg] Johnny Corcoran CLASS B TRUCK DRIVER [employer], [employer] 10-09-2017 08:22-0400 Heart rate 70 /min Johnny Corcoran [facility] [employer], [employer] 10-09-2017 08:22-0400 Systolic blood pressure 151 mm[Hg] Johnny Corcoran LPN [employer] 09-18-2017 09:50-0400 Body height 163.83 cm Zack Olmos MD Work Phone: [employer], [employer] 09-18-2017 09:50-0400 Body mass index (BMI) [Ratio] 38.7 kg/m2 Zack Olmos MD Work Phone: [employer] 09-18-2017 09:50-0400 Body surface area Derived from formula 2.08 m2 Zack Olmos MD Work Phone: [employer] 09-18-2017 09:50-0400 Body weight 103.87 kg Zack Olmos MD Work Phone: [employer] 09-18-2017 09:50-0400 Diastolic blood pressure 70 mm[Hg] Zack Olmos MD Work Phone: [employer] 09-18-2017 09:50-0400 Heart rate 67 /min Zack Olmos MD Work Phone: [employer] 09-18-2017 09:50-0400 Systolic blood pressure 126 mm[Hg] Zack Olmos MD Work Phone: [employer] 07-11-2017 09:27-0400 Body height 163.83 cm Laura Boswell LPN [employer] 07-11-2017 09:27-0400 Body mass index (BMI) [Ratio] 39.04 kg/m2 Laura Boswell LPN [employer] 07-11-2017 09:27-0400 Body surface area Derived from formula 2.09 m2 Laura Boswell LPN [employer] 07-11-2017 09:27-0400 Body temperature 97.9 [degF] Laura Boswell LPN [employer] 07-11-2017 09:27-0400 Body weight 104.78 kg Laura Boswell LPN [employer] 07-11-2017 09:27-0400 Diastolic blood pressure 72 mm[Hg] Laura Boswell LPN [employer] 07-11-2017 09:27-0400 Heart rate 74 /min Laura Boswell LPN [employer] 07-11-2017 09:27-0400 Systolic blood pressure 154 mm[Hg] Laura Boswell LPN [employer] 06-16-2017 10:15-0400 Body temperature 97.9 [degF] Laura Ilda Boswell CLASS B TRUCK DRIVER [employer] 06-16-2017 10:15-0400 Body weight 106.4 kg Laura Ilda Boswell LPN [employer] 06-16-2017 10:15-0400 Diastolic blood pressure 70 mm[Hg] [facility]well [facility] [facility] [employer] 06-16-2017 10:15-0400 Heart rate 91 /min Laura Ilda Boswell [facility] [employer] 06-16-2017 10:15-0400 Systolic blood pressure 143 mm[Hg] Laura Boswell [facility] 05-04-2017 15:40-0500 BMI (Body Mass Index) 38.22 kg/m2 Lenin Ramirez [facility] 05-04-2017 15:40-0500 BP Diastolic 80 mm[Hg] Lenin Ramirez [facility] 05-04-2017 15:40-0500 BP Systolic 127 mm[Hg] Lenin Ramirez [facility] 05-04-2017 15:40-0500 Height 170.2 cm Lenin Ramriez [facility] 05-04-2017 15:40-0500 Pulse (Heart Rate) 80 /min Lenin Ramirez [facility] 05-04-2017 15:40-0500 Weight 110.68 kg Lenin Ramirez [facility] 03-21-2017 10:25-0500 Body height 163.83 cm Zack Olmos MD Work Phone: [employer] 03-21-2017 10:25-0500 Body mass index (BMI) [Ratio] 39.88 kg/m2 Zack Olmos MD Work Phone: [employer] 03-21-2017 10:25-0500 Body surface area Derived from formula 2.11 m2 Zack Olmos MD Work Phone: [employer] 03-21-2017 10:25-0500 Body weight 107.05 kg Zack Olmos MD Work Phone: [employer] 03-21-2017 10:25-0500 Diastolic blood pressure 70 mm[Hg] Zack Olmos MD Work Phone: [employer] 03-21-2017 10:25-0500 Heart rate 91 /min Zack Olmos MD Work Phone: [employer] 03-21-2017 10:25-0500 Systolic blood pressure 132 mm[Hg] Zack Olmos MD Work Phone: [employer] 10-05-2016 09:46-0400 Body height 163.83 cm Zack Olmos MD Work Phone: [employer] 10-05-2016 09:46-0400 Body mass index (BMI) [Ratio] 39.88 kg/m2 Zack Olmos MD Work Phone: [employer] 10-05-2016 09:46-0400 Body surface area Derived from formula 2.11 m2 Zack Olmos MD Work Phone: [employer] 10-05-2016 09:46-0400 Body weight 107.05 kg Zack Olmos MD Work Phone: [employer] 10-05-2016 09:46-0400 Diastolic blood pressure 82 mm[Hg] Zack Olmos MD Work Phone: [employer] 10-05-2016 09:46-0400 Heart rate 68 /min Zack Olmos MD Work Phone: [employer] 10-05-2016 09:46-0400 Systolic blood pressure 138 mm[Hg] Zack Olmos MD Work Phone: [employer] 09-16-2016 11:33-0400 Body height 163.83 cm [facility] Inc.; [employer] 09-16-2016 11:33-0400 Body mass index (BMI) [Ratio] 40.39 kg/m2 Rosy Allison [facility] [employer] 09-16-2016 11:33-0400 Body surface area Derived from formula 2.12 m2 Rosy Allison Corby LPN [employer] 09-16-2016 11:33-0400 Body weight 108.41 kg Rosy Allison Corby LPN [employer] 09-16-2016 11:33-0400 Diastolic blood pressure 84 mm[Hg] Rosy Tavarez [facility] [employer] 09-16-2016 11:33-0400 Heart rate 73 /min Rosy Allison Corby [facility] [employer] 09-16-2016 11:33-0400 Systolic blood pressure 145 mm[Hg] Rosy Tavarez [facility] [employer] 04-06-2016 10:03-0500 Body height 163.83 cm Zack Olmos MD Work Phone: [employer] 04-06-2016 10:03-0500 Body mass index (BMI) [Ratio] 41.4 kg/m2 Zack Olmos MD Work Phone: [employer] 04-06-2016 10:03-0500 Body surface area Derived from formula 2.14 m2 Zack Olmos MD Work Phone: [employer] 04-06-2016 10:03-0500 Body weight 111.13 kg Zack Olmos MD Work Phone: [employer] 04-06-2016 10:03-0500 Diastolic blood pressure 72 mm[Hg] Zack Olmos MD Work Phone: [employer] 04-06-2016 10:03-0500 Heart rate 91 /min Zack Olmos MD Work Phone: [employer] 04-06-2016 10:03-0500 Systolic blood pressure 140 mm[Hg] Zack Olmos MD Work Phone: [employer] 12-21-2015 09:23-0400 Body weight 115.21 kg Zack Olmos MD Work Phone: [employer] 12-21-2015 09:23-0400 Diastolic blood pressure 80 mm[Hg] Zack Olmos MD Work Phone: [employer] 12-21-2015 09:23-0400 Heart rate 76 /min Zack Olmos MD Work Phone: [employer] 12-21-2015 09:23-0400 Systolic blood pressure 142 mm[Hg] Zack Olmos MD Work Phone: [employer] 10-14-2015 10:57-0400 Body height 163.83 cm Rosy Tavarez [facility] [employer] 10-14-2015 10:57-0400 Body mass index (BMI) [Ratio] 41.91 kg/m2 Rosy Tavarez LPN [employer] 10-14-2015 10:57-0400 Body surface area Derived from formula 2.16 m2 Rosy Tavarez LPN [employer] 10-14-2015 10:57-0400 Body weight 112.49 kg Rosy Allison Corby [place] [facility] [employer] 10-14-2015 10:57-0400 Diastolic blood pressure 74 mm[Hg] Rosy Balldory [place] [facility].; [employer] 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 10-14-2015 10:57-0400 Systolic blood pressure 131 mm[Hg] Rosy Allison Corby LPN [employer] 10-06-2015 10:11-0400 Body height 163.83 cm Muna Engel [place] [facility] [employer] 10-06-2015 10:11-0400 Body mass index (BMI) [Ratio] 41.57 kg/m2 Muna Engel [place] ASHER [facility], [facility].; [employer] 10-06-2015 10:11-0400 Body surface area Derived from formula 2.15 m2 Muna Engel [place] [facility].; [employer] 10-06-2015 10:11-0400 Body weight 111.59 kg Muna Townsend ASHER [facility].; [employer] 10-06-2015 10:11-0400 Diastolic blood pressure 75 mm[Hg] Muna Engel [place] ASHER [facility], [facility].; [employer] 10-06-2015 10:11-0400 Heart rate 71 /min Muna Engel [place] ASHER [employer] 10-06-2015 10:11-0400 Systolic blood pressure 141 mm[Hg] Muna Engel [place] ASHER [employer], [employer] 04-07-2015 10:00-0500 Body height 163.83 cm Adeline [place] [employer] 04-07-2015 10:00-0500 Body mass index (BMI) [Ratio] 41.24 kg/m2 [facility]eline [place] [facility] [employer] 04-07-2015 10:00-0500 Body surface area Derived from formula 2.14 m2 [facility] [employer] 04-07-2015 10:00-0500 Body weight 110.68 kg Muna Townsend [facility] [employer] 04-07-2015 10:00-0500 Diastolic blood pressure 77 mm[Hg] [facility] [employer] 04-07-2015 10:00-0500 Heart rate 85 /min [facility] [employer] 04-07-2015 10:00-0500 Systolic blood pressure 138 mm[Hg] Muna Townsend [facility] [employer] 01-06-2015 09:37-0400 Body height 163.83 cm Zack Olmos MD Work Phone: [employer] 01-06-2015 09:37-0400 Body mass index (BMI) [Ratio] 40.9 kg/m2 Zack Olmos MD Work Phone: [employer] 01-06-2015 09:37-0400 Body surface area Derived from formula 2.13 m2 Zack Olmos MD Work Phone: [employer] 01-06-2015 09:37-0400 Body temperature 97.7 [degF] Zack Olmos MD Work Phone: [employer] 01-06-2015 09:37-0400 Body weight 109.77 kg Zack Olmos MD Work Phone: [employer] 01-06-2015 09:37-0400 Diastolic blood pressure 70 mm[Hg] Zack Olmos MD Work Phone: [employer] 01-06-2015 09:37-0400 Heart rate 69 /min Zack Olmos MD Work Phone: [employer] 01-06-2015 09:37-0400 Inhaled oxygen concentration 20 % Zack Olmos MD Work Phone: [employer] 01-06-2015 09:37-0400 SaO2% (BldA) [Mass fraction] 97 % Zack Olmos MD Work Phone: [employer] 01-06-2015 09:37-0400 Systolic blood pressure 132 mm[Hg] Zack Olmos MD Work Phone: [employer] 12-23-2014 08:19-0400 Body temperature 101.6 [degF] Umu Nye RN [employer] 12-23-2014 08:19-0400 Body weight 115.67 kg Umu Nye RN [employer] 12-23-2014 08:19-0400 Diastolic blood pressure 86 mm[Hg] Umu Nye RN [employer] 12-23-2014 08:19-0400 Heart rate 115 /min Umu Nye RN [employer] 12-23-2014 08:19-0400 Inhaled oxygen concentration 20 % Umu Nye RN [employer] 12-23-2014 08:19-0400 SaO2% (BldA) [Mass fraction] 89 % Umu Nye RN [employer] [facility] 12-23-2014 08:19-0400 Systolic blood pressure 184 mm[Hg] Umu Nye RN [facility], [facility].; [employer], [employer] 09-26-2014 [id number]:[id number] Body height 163.83 cm AdelineMaren Townsend [facility], Inc.; [employer] 09-26-2014 10:28-0400 Body mass index (BMI) [Ratio] 41.91 kg/m2 [facility] [place] [facility] Inc.; [employer] 09-26-2014 10:28-0400 Body surface area Derived from formula 2.16 m2 [facility] [place] [facility] [facility], [facility].; [employer] 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 09-26-2014 10:28-0400 Diastolic blood pressure 79 mm[Hg] AdelineMaren Townsend CLASS B TRUCK DRIVER Mart[facility], Inc.; [employer] 09-26-2014 10:28-0400 Heart rate 65 /min [facility] [place] [facility], [facility].; [employer] 09-26-2014 10:28-0400 Systolic blood pressure 141 mm[Hg] Adeline [place] [employer] B TRUCK DRIVER [facility] [facility], Inc.; [employer] 08-01-2014 09:020400 Body height 163.83 cm [facility] [place] CLASS B TRUCK DRIVER Martines [facility] [facility], Inc.; [employer] 08-01-2014 09:020400 Body mass index (BMI) [Ratio] 41.07 kg/m2 [facility] [place] [facility] Inc.; [employer] 08-01-2014 09:02-0400 Body surface area Derived from formula 2.14 m2 [facility] [place] CLASS B TRUCK DRIVER Martines [facility] [facility], Inc.; [employer] 08-01-2014 09:020400 Body weight 110.22 kg Muna Townsend ASHER [facility], Inc.; [employer] 08-01-2014 09:02-0400 Diastolic blood pressure 78 mm[Hg] Muna Townsend [facility] Inc.; [employer] 08-01-2014 09:02-0400 Heart rate 78 /min Muna Townsend [facility] Inc.; [employer] 08-01-2014 09:02-0400 Systolic blood pressure 135 mm[Hg] Muna Townsend [facility] B TRUCK [facility], Inc.; [employer] 06-20-2014 09:50-0400 Body height 163.83 cm Marisela Chavis LPN [facility], [facility].; [employer] 06-20-2014 09:50-0400 Body mass index (BMI) [Ratio] 41.24 kg/m2 Marisela Chavis LPN [facility], [facility].; [employer] 06-20-2014 09:50-0400 Body surface area Derived from formula 2.14 m2 Marisela Chavis LPN [employer].; [employer] 06-20-2014 09:50-0400 Body temperature 97.9 [degF] Marisela Chavis LPN [employer] 06-20-2014 09:50-0400 Body weight 110.68 kg Marisela Chavis LPN [employer] 06-20-2014 09:50-0400 Diastolic blood pressure 76 mm[Hg] Marisela Chavis LPN [employer] 06-20-2014 09:50-0400 Heart rate 73 /min Marisela Chavis LPN [employer] 06-20-2014 09:50-0400 Systolic blood pressure 143 mm[Hg] Marisela Chavis LPN [employer] 03-24-2014 08:07-0500 Body height 163.83 cm Muna Townsend CLASS B TRUCK DRIVER [facility] [facility], Inc.; [employer] 03-24-2014 08:07-0500 Body mass index (BMI) [Ratio] 39.04 kg/m2 Muna Townsend [facility].; [employer] 03-24-2014 08:07-0500 Body surface area Derived from formula 2.09 m2 Muna Townsend [facility] Inc.; [employer] 03-24-2014 08:07-0500 Body weight 104.78 kg Muna Townsend [facility] [employer] 03-24-2014 08:07-0500 Diastolic blood pressure 78 mm[Hg] Muna Townsend [facility] Inc.; [employer] 03-24-2014 08:07-0500 Heart rate 81 /min Adeline [place] [facility].; [employer] 03-24-2014 08:07-0500 Systolic blood pressure 147 mm[Hg] Muna Townsend [facility] [employer] 01-22-2014 11:07-0500 Body height 163.83 cm Muna Townsend [facility].; [employer] 01-22-2014 11:07-0500 Body mass index (BMI) [Ratio] 37.18 kg/m2 Muna Townsend [facility] [employer] 01-22-2014 11:07-0500 Body surface area Derived from formula 2.05 m2 Muna Townsend [employer] B TR[employer] DRIVER [employer] 01-22-2014 11:07-0500 Body temperature 97.4 [degF] Muna Townsend [facility] [employer] 01-22-2014 11:07-0500 Body weight 99.79 kg Muna Townsend [employer] B TR[employer] 01-22-2014 11:07-0500 Diastolic blood pressure 69 mm[Hg] Muna Townsend [facility] [facility].; [employer] 01-22-2014 11:07-0500 Heart rate 106 /min Muna Townsend [facility], Inc.; [employer] 01-22-2014 11:07-0500 Systolic blood pressure 112 mm[Hg] Muna Townsend [facility].; [employer] 01-15-2014 07:57-0500 Body height 163.83 cm Muna Townsend [facility] Inc.; [employer] 01-15-2014 07:57-0500 Body mass index (BMI) [Ratio] 37.18 kg/m2 Muna Townsend [facility], [facility].; [employer] 01-15-2014 07:57-0500 Body surface area Derived from formula 2.05 m2 Adeline [place] [facility], Inc.; [employer] 01-15-2014 07:57-0500 Body temperature 99.3 [degF] Muna Townsend [facility] Inc.; [employer] 01-15-2014 07:57-0500 Body weight 99.79 kg Muna Townsend [facility] Inc.; [employer] 01-15-2014 07:57-0500 Diastolic blood pressure 69 mm[Hg] Muna Townsend [facility] [facility], [facility].; [employer] 01-15-2014 07:57-0500 Heart rate 106 /min AdelineMaren Townsend [facility] Inc.; [employer] 01-15-2014 07:57-0500 Systolic blood pressure 132 mm[Hg] Muna Townsend [facility] [employer] 01-13-2014 11:25-0500 Body height 163.83 cm Pilar Garcia [facility] [employer] 01-13-2014 11:25-0500 Body mass index (BMI) [Ratio] 37.18 kg/m2 Pilar Garcia [employer] B TR[employer] DRIVER [facility], [facility].; [employer] 01-13-2014 11:25-0500 Body surface area Derived from formula 2.05 m2 Pilar Garcia CLASS B TRUCK DRIVER [facility], [facility].; [employer] 01-13-2014 11:25-0500 Body weight 99.79 kg Pilar Garcia [facility] [employer] 01-13-2014 11:25-0500 Diastolic blood pressure 79 mm[Hg] Pilarclemente Garcia [facility] Inc.; [employer] 01-13-2014 11:25-0500 Heart rate 109 /min Pilarclemente Garcia LPN [employer] 01-13-2014 11:25-0500 Systolic blood pressure 131 mm[Hg] Pilar Garcia LPN [employer] 07-30-2013 10:06-0400 Body height 163.83 cm Muna Townsend [employer] B TR[employer]IVER [employer] 07-30-2013 10:06-0400 Body mass index (BMI) [Ratio] 38.53 kg/m2 Muna Townsend CLASS B TRUCK DRIVER [facility].; [employer] 07-30-2013 10:06-0400 Body surface area Derived from formula 2.08 m2 Muna Townsend ASHER [employer] 07-30-2013 10:06-0400 Body weight 103.42 kg Muna Townsend LPN [employer] 07-30-2013 10:06-0400 Diastolic blood pressure 83 mm[Hg] Muna Townsend ASHER [employer] 07-30-2013 10:06-0400 Heart rate 76 /min Muna Townsend [employer] B TR[employer] DRIVER [employer] 07-30-2013 10:06-0400 Systolic blood pressure 132 mm[Hg] Muna Townsend ASHER [facility], Inc.; [employer] 06-21-2013 10:13-0400 Body height 163.83 cm Marisela Chavis CLASS B TRUCK DRIVER [facility], Inc.; [employer] 06-21-2013 10:13-0400 Body mass index (BMI) [Ratio] 37.69 kg/m2 Marisela Chavis CLASS B TRUCK DRIVER [facility].; [employer] 06-21-2013 10:13-0400 Body surface area Derived from formula 2.06 m2 Marisela Chavis CLASS B TRUCK DRIVER [facility], Inc.; [employer] 06-21-2013 10:130400 Body temperature 97.1 [degF] Marisela Chavis CLASS B TRUCK DRIVER [facility], [facility].; [employer] 06-21-2013 10:130400 Body weight 101.15 kg Marisela Chavis CLASS B TRUCK DRIVER [facility], Inc.; [employer] 06-21-2013 10:13-0400 Diastolic blood pressure 69 mm[Hg] Marisela [facility]avis [facility] Inc.; [employer] 06-21-2013 10:13-0400 Heart rate 67 /min Marisela Chavis CLASS B TRUCK DRIVER [facility], Inc.; [employer] 06-21-2013 10:13-0400 Systolic blood pressure 111 mm[Hg] Marisela Chavis CLASS B TRUCK DRIVER [facility], Inc.; [employer] 03-04-2013 14:05-0500 Body height 163.83 cm Sandra King [facility] Inc.; [employer] 03-04-2013 14:05-0500 Body mass index (BMI) [Ratio] 35.72 kg/m2 Sandra King LPN [facility], Inc.; [employer] 03-04-2013 14:05-0500 Body surface area Derived from formula 2.01 m2 Sandra King CLASS B TRUCK DRIVER [facility], Inc.; [employer], [employer]. 03-04-2013 14:05-0500 Body weight 95.88 kg Sandra Wealonso [place] [facility], Inc.; [employer] 03-04-2013 14:05-0500 Diastolic blood pressure 76 mm[Hg] Sandra King LPN [place] [facility], Inc.; [employer], [employer] 03-04-2013 14:05-0500 Heart rate 71 /min Sandra King LPN [place] [facility], Inc.; [employer] 03-04-2013 14:05-0500 Systolic blood pressure 175 mm[Hg] Sandra King [facility], Inc.; [employer], [employer] 02-18-2013 11:32-0500 Body height 163.83 cm Sandra King LPN [place] [facility], Inc.; [employer], [employer]. 02-18-2013 11:32-0500 Body mass index (BMI) [Ratio] 35.07 kg/m2 Sandra King LPN [place] [facility], Inc.; [employer], [employer]. 02-18-2013 11:32-0500 Body surface area Derived from formula 2 m2 Sandra King LPN [place] [facility], Inc.; [employer] 02-18-2013 11:32-0500 Body temperature 98 [degF] Sandra King LPN [place] [facility], Inc.; [employer] 02-18-2013 11:32-0500 Body weight 94.12 kg Sandra King LPN [facility], [facility].; Original, [employer]. 02-18-2013 11:32-0500 Diastolic blood pressure 82 mm[Hg] Sandra King LPN [employer], [employer].; [employer] 02-18-2013 11:32-0500 Heart rate 82 /min Sandra King LPN [employer], [employer].; [employer], [employer]. 02-18-2013 11:32-0500 Systolic blood pressure 135 mm[Hg] Sandra King LPN [employer] 01-31-2013 08:07-0500 Body height 163.83 cm Zack Olmos MD Work Phone: [employer] 01-31-2013 08:07-0500 Body mass index (BMI) [Ratio] 35.83 kg/m2 Zack Olmos MD Work Phone: [employer] 01-31-2013 08:07-0500 Body surface area Derived from formula 2.02 m2 Zack Olmos MD Work Phone: [employer] 01-31-2013 08:07-0500 Body temperature 101 [degF] Zack Olmos MD Work Phone: [employer] 01-31-2013 08:07-0500 Body weight 96.16 kg Zack Olmos MD Work Phone: [employer] 01-31-2013 08:07-0500 Diastolic blood pressure 72 mm[Hg] Zack Olmos MD Work Phone: [employer] 01-31-2013 08:07-0500 Heart rate 101 /min Zack Olmos MD Work Phone: [employer] 01-31-2013 08:07-0500 Systolic blood pressure 133 mm[Hg] Zack Olmos MD Work Phone: [employer] 01-29-2013 09:57-0500 Body weight 96.62 kg Zack Olmos MD Work Phone: [employer] 01-29-2013 09:57-0500 Diastolic blood pressure 78 mm[Hg] Zack Olmos MD Work Phone: [employer] 01-29-2013 09:57-0500 Heart rate 76 /min Zcak Olmos MD Work Phone: [employer] 01-29-2013 09:57-0500 Systolic blood pressure 128 mm[Hg] Zack Olmos MD Work Phone: [employer] 07-24-2012 09:20-0400 Body height 163.83 cm Zack Olmos MD Work Phone: [employer] 07-24-2012 09:20-0400 Body mass index (BMI) [Ratio] 36 kg/m2 Zack Olmos MD Work Phone: [employer] 07-24-2012 09:20-0400 Body surface area Derived from formula 2.02 m2 Zack Olmos MD Work Phone: [employer] 07-24-2012 09:20-0400 Body weight 96.62 kg Zack Olmos MD Work Phone: [employer] 07-24-2012 09:20-0400 Diastolic blood pressure 72 mm[Hg] Zack Olmos MD Work Phone: [employer] 07-24-2012 09:20-0400 Heart rate 68 /min Zack Olmos MD Work Phone: [employer] 07-24-2012 09:20-0400 Systolic blood pressure 138 mm[Hg] Zack Olmos MD Work Phone: [employer] 01-24-2012 09:38-0500 Body temperature 97.9 [degF] Zack Olmos MD Work Phone: [employer] 01-24-2012 09:38-0500 Body weight 100.25 kg Zack Olmos MD Work Phone: [facility], [employer] 01-24-2012 09:38-0500 Diastolic blood pressure 76 mm[Hg] Zack Olmos MD Work Phone: [employer].; [employer] 01-24-2012 09:38-0500 Heart rate 72 /min Zack Olmos MD Work Phone: [employer].; [employer] 01-24-2012 09:38-0500 Systolic blood pressure 136 mm[Hg] Zack Olmos MD Work Phone: [employer], [employer] 10-18-2011 10:18-0400 Body height 163.83 cm [facility] Inc.; [employer] 10-18-2011 10:18-0400 Body mass index (BMI) [Ratio] 38.87 kg/m2 [facility] Inc.; [employer] 10-18-2011 10:18-0400 Body surface area Derived from formula 2.09 m2 [facility], Inc.; [employer], [employer] 10-18-2011 10:18-0400 Body weight 104.33 kg [facility] Inc.; [employer] 10-18-2011 10:18-0400 Diastolic blood pressure 89 mm[Hg] [facility] [place] [facility] Inc.; [employer], [employer] 10-18-2011 10:18-0400 Heart rate 72 /min [facility] Inc.; [employer], [employer] 10-18-2011 10:18-0400 Systolic blood pressure 153 mm[Hg] [facility] [place] [facility] Inc.; [employer], [employer] 08-02-2011 08:30-0400 Body height 163.83 cm Zack Olmos MD Work Phone: [employer] 08-02-2011 08:30-0400 Body mass index (BMI) [Ratio] 41.07 kg/m2 Zack Olmos MD Work Phone: [employer] 08-02-2011 08:30-0400 Body surface area Derived from formula 2.14 m2 Zack Olmos MD Work Phone: [employer] 08-02-2011 08:30-0400 Body weight 110.22 kg Zack Olmos MD Work Phone: [employer] 08-02-2011 08:30-0400 Diastolic blood pressure 78 mm[Hg] Zack Olmos MD Work Phone: [employer] 08-02-2011 08:30-0400 Heart rate 58 /min Zack Olmos MD Work Phone: [employer] 08-02-2011 08:30-0400 Systolic blood pressure 126 mm[Hg] Zack Olmos MD Work Phone: [employer] 03-29-2011 10:18-0500 Body height 163.83 cm Lesley rAmin Abrams CLASS B TRUCK DRIVER [employer] 03-29-2011 10:18-0500 Body mass index (BMI) [Ratio] 40.59 kg/m2 Lesley C Jose Alberto CLASS B TRUCK DRIVER [employer] 03-29-2011 10:18-0500 Body surface area Derived from formula 2.13 m2 Lesley C Jose Alberto CLASS B TRUCK DRIVER [employer] 03-29-2011 10:18-0500 Body weight 108.95 kg Lesley Armin Abrams CLASS B TRUCK DRIVER [employer] 03-29-2011 10:18-0500 Diastolic blood pressure 77 mm[Hg] Lesley Abrams LPN [employer] 03-29-2011 10:18-0500 Heart rate 93 /min Lesley Abrams LPN [employer] 03-29-2011 10:18-0500 Systolic blood pressure 136 mm[Hg] Lesley Abrams LPN [employer].; [employer] 02-01-2011 10:29-0500 Body height 165.1 cm Zack Olmos MD Work Phone: [employer] 02-01-2011 10:29-0500 Body mass index (BMI) [Ratio] 42.6 kg/m2 Zack Olmos MD Work Phone: [employer] 02-01-2011 10:29-0500 Body surface area Derived from formula 2.2 m2 Zack Olmos MD Work Phone: [employer] 02-01-2011 10:29-0500 Body weight 116.12 kg Zack Olmos MD Work Phone: [employer] 02-01-2011 10:29-0500 Diastolic blood pressure 77 mm[Hg] Zack Olmos MD Work Phone: [employer] 02-01-2011 10:29-0500 Heart rate 65 /min Zack Olmos MD Work Phone: [employer] 02-01-2011 10:29-0500 Systolic blood pressure 122 mm[Hg] Zack Olmos MD Work Phone: [employer] 08-27-2010 08:32-0400 Body weight 114.31 kg Zack Olmos MD Work Phone: [employer] 08-27-2010 08:32-0400 Diastolic blood pressure 71 mm[Hg] Zack Olmos MD Work Phone: [employer] 08-27-2010 08:32-0400 Heart rate 61 /min Zack Olmos MD Work Phone: [employer] 08-27-2010 08:32-0400 Systolic blood pressure 128 mm[Hg] Zack Olmos MD Work Phone: [employer] 05-13-2010 17:01-0500 Body temperature 96.7 [degF] Zack Olmos MD Work Phone: [employer] 05-13-2010 17:01-0500 Body weight 117.03 kg Zack Olmos MD Work Phone: [employer] 05-13-2010 17:01-0500 Diastolic blood pressure 83 mm[Hg] Zack Olmos MD Work Phone: [employer] 05-13-2010 17:01-0500 Heart rate 65 /min Zack Olmos MD Work Phone: [employer] 05-13-2010 17:01-0500 Inhaled oxygen concentration 20 % Zack Olmos MD Work Phone: [employer] 05-13-2010 17:01-0500 SaO2% (BldA) [Mass fraction] 96 % Zack Olmos MD Work Phone: [employer] 05-13-2010 17:01-0500 Systolic blood pressure 183 mm[Hg] Zack Olmos MD Work Phone: [employer] 02-26-2010 08:51-0500 Body weight 119.75 kg Zack Olmos MD Work Phone: [facility], [employer].; [employer] 02-26-2010 08:51-0500 Diastolic blood pressure 66 mm[Hg] Zack Olmos MD Work Phone: [facility], [employer].; [employer] 02-26-2010 08:51-0500 Heart rate 59 /min Zack Olmos MD Work Phone: [facility]am [employer] [facility].; [employer] 02-26-2010 08:51-0500 Systolic blood pressure 130 mm[Hg] Zack Olmos MD Work Phone: [employer] [facility], [employer].; [employer] 01-06-2010 15:19-0400 Body height 165.1 cm [facility], [facility].; [employer], [employer]. 01-06-2010 15:19-0400 Body mass index (BMI) [Ratio] 43.43 kg/m2 [facility], [facility].; [employer], [employer]. 01-06-2010 15:19-0400 Body surface area Derived from formula 2.22 m2 [facility], [facility].; [employer] 01-06-2010 15:19-0400 Body temperature 96.9 [degF] [facility] [employer], [employer]. 01-06-2010 15:19-0400 Body weight 118.39 kg [facility], [facility].; Original, [employer]. 01-06-2010 15:19-0400 Diastolic blood pressure 78 mm[Hg] [facility] [place] [facility], [employer].; [employer], [employer]. 01-06-2010 15:19-0400 Heart rate 72 /min [facility], [facility].; [employer], [employer]. 01-06-2010 15:19-0400 Inhaled oxygen concentration 20 % [facility] [employer].; [employer]. 01-06-2010 15:19-0400 SaO2% (BldA) [Mass fraction] 96 % [facility].; [employer]. 01-06-2010 15:19-0400 Systolic blood pressure 160 mm[Hg] Muna Town[facility] [employer] [facility].; [employer]. Encounters Encounter Date Encounter Type Care Provider Facility Start: 03-30-2023 Orders Only Sherry George DO Work Phone: [facility] Start: 03-30-2023 End: 03-30-2023 Office outpatient visit 25 minutes Zack Olmos MD Work Phone: [facility] [facility] Start: 03-30-2023 Zack Olmos MD Work Phone: [facility]ines [employer] [facility] Start: 03-27-2023 End: 03-27-2023 Zack Olmos MD Work Phone: [employer] [facility] Start: 03-24-2023 ambulatory LENIN RAMIREZ [facility] Start: 03-21-2023 End: 03-22-2023 ambulatory SHERRY GEORGE [facility] Start: 01-23-2023 ambulatory LENIN RAMIREZ [facility] Start: 12-22-2022 End: 12-22-2022 Home visit Андрей Claros RN [facility] Procedures Date Procedure Procedure Detail Performing Clinician Start: 06-21-2022 End: 06-21-2022 Adv care pln/ no alt dcsn mkr docd or refusal Zack Olmos MD Work Phone: Start: 06-21-2022 End: 06-21-2022 Depression screening Zack Omlos MD Work Phone: Start: 06-21-2022 End: 06-21-2022 [...] End: 04-26-2022 AIRWAY ETT Froy Ochoa Mason 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 Work Phone: Start: 04-18-2022 End: 04-19-2022 Ecg [...] CABG (coronary artery bypass graft) [place] LINER CHECKER Work Phone: History of coronary artery bypass [...] 03-20-2032 Screening for malignant neoplasm of colon [facility] Start: 12-07-2023 CLASS III : OFFICE VISIT CLASS III : OFFICE VISIT [facility] Start: 08-31-2023 CLASS III : OFFICE VISIT CLASS III : OFFICE VISIT [facility] Start: 06-08-2023 End: 06-08-2023 Patient encounter procedure 06/08/2023 9:30 AM EDT Office Visit [facility] [address] [place] [address] Lenin Ramirez MD [address] [facility] [address] [place] [address] [facility] Start: 06-01-2023 CLASS III : OFFICE VISIT CLASS III : OFFICE VISIT [facility] Start: 05-30-2023 Alanine aminotransferase measurement CLASS III : ALT [facility] Start: 05-30-2023 Thyroid stimulating hormone measurement Class III : TSH [facility] Start: 05-02-2023 End: 05-02-2023 Patient encounter procedure 05/02/2023 2:15 PM EST Office Visit [facility] [address] [facility], [address] [phone] Sherry George DO [address] [place] [id number] [facility] Start: 04-25-2023 End: 04-25-2023 Patient encounter procedure 04/25/2023 1:00 PM EST Office Visit [facility] [address] [facility] [place], [facility] [address] [place] [address] Sherry George DO [address] [address] [facility] Start: 04-05-2023 CLASS III : OFFICE VISIT CLASS III : OFFICE VISIT [facility] Start: 03-08-2023 End: 12-06-2023 Carcinoembryonic antigen measurement CEA Lab Routine Elevated CEA Malignant neoplasm of ascending colon (HCC) Expected: 03/08/2023 (Approximate), Expires: 12/06/2023 [facility] Immunizations Immunization Date Immunization Notes Care Provider Jef rodarte 05-06-2020 Zack Olmos MD Work Phone: [facility].; [employer]ines [employer]. 04-08-2020 Zack Olmos MD Work Phone: [facility].; [facility]. 11-27-2019 influenza virus vacc ine, unspecified formulation Zack Olmos MD Work Phone: [facility].; Whigham [employer]. 11-27-2019 influenza, injectabl e, quadrivalent, contains preservative Zack Olmos MD Work Phone: [facility].; [facility]. 03-23-2019 zoster vaccine recombinant Leonila Walls [facility] 09-25-2018 Shingrix (PF) Zack Olmos MD Work Phone: [facility].; [employer]. 01-30-2018 pneumococcal polysaccharide vaccine, 23 valent Zack Oloms MD Work Phone: [employer].; [employer]. 01-11-2017 influenza, injectabl e, quadrivalent, contains preservative Zack Olmos MD Work Phone: [facility].; [employer]. 01-12-2014 pneumococcal conjuga te vaccine, 13 valent Zack Olmos MD Work Phone: [employer].; [employer]. 12-11-2012 influenza, seasonal, injectable Zack Olmos MD Work Phone: [employer].; [employer]. 01-11-2011 influenza, seasonal, injectable aZck Olmos MD Work Phone: [employer].; [employer]. 01-11-2011 Zack Olmos MD Work Phone: [employer].; [employer]ines [employer]. 01-20-2010 influenza, seasonal, injectable Zack Olmos MD Work Phone: [facility].; [facility] [facility]. 01-20-2010 Zack Olmos MD Work Phone: [facility].; [facility]. Payers Date Payer Category Payer Unknown [employer]MO [employer] [place] [place] TRADITIONAL xxxxxxxxxxxx 2019-Present xxxxxxxxxxxx [id number] .[id number] 2019 Unknown [id number] [id number] .[id number] 2019 Unknown [id number]. 1.13.385.2.7.3 .[id number] 2019 Unknown [id number] 2011 Medicare xxxxxxxxxx [id number] 2011 Medicare MEDICARE MEDICAR E PART A & B xxxxxxxxxxx 2011-Present [place] xxxxxxxxxxx [id number] .[id number] 2011 Medicare [id number] [id number].3 .[id number] 2011 Medicare MEDICARE MEDICAR E PART A & B [id number] 2011-Present [phone] S J15 PART A CLAIMS [address] [address] [place] [address] [id number] .[id number] 2011 Medicare [id number] 2011 Unknown COMMERCIAL MUTUA [place] OF [place] xxxxxxxx 2011-Present xxxxxxxx [id number].3 .290440.315 2011 Unknown [id number] 1946 Unknown [id number] 2.16.840.1.264024.3.579.2. 1946 Unknown [id number] 2.16.840.1.613134.3.579.2.900 1946 Unknown [id number] 2.16.840.1.098203.3.579.2 1946 Unknown [id number] 2.16.840.1.518695.3.579.2. 1946 Unknown [id number] 2.16.840.1.521665.3.579.2 1946 Unknown [id number] 2.16.840.1.562830.3.579.2 1946 Unknown [id number] 2.16840.1.452354.3.579.2 1946 Unknown [id number] 2.16.840.1.140016.3.579.2 1946 Unknown [id number] 2.16.840.1.796359.3.579.2 1946 Unknown [id number] 2.16.840.1.149523.3.579.2 1946 Unknown [id number] 2.16.840.1.804097.3.579.2 1946 Unknown [id number] 2.16.840.1.329596.3.579.2 1946 Unknown [id number] 2.16.840.1.050316.3.579.2 1946 Unknown [id number] 2.16.840.1.108315.3.579.2 1946 Unknown [id number] 2.16.840.1.725881.3.579.2 1946 Unknown [id number] 2.16.840.1.255410.3.579.2. 1946 Unknown [id number] 2.16.840.1.712755.3.579.2. 1946 Unknown [id number] 2.16.840.1.835043.3.579.2. 1946 Unknown [id number] 2.16.840.1.547746.3.579.2. 1946 Unknown [id number] 2.16.840.1.387998.3.579.2. 1946 Unknown [id number] 2.16.840.1.958846.3.579.2. 1946 Unknown [id number] 2.16.840.1.050586.3.579.2. 1946 Unknown [id number] 2.16.840.1.217103.3.579.2. 1946 Unknown [id number] 2.16.840.1.108694.3.579.2.90 Unknown xxxxxx-xx 2.16.840.1.264194.3.249.13 Social History Date Type Detail Facility Start: 05-04-2017 End: 08-10-2021 Tobacco smoking status DEIS Former smoker [facility] End: 03-13-1989 History of tobacco use Current smoker [facility] Start: 1945 Sex Assigned At Not on file [facility] Start: 08-11-2014 Alcohol Comment occasionally [facility] Start: 11-09-2018 End: 04-06-2022 Alcohol intake Current drinker of alcohol (finding) [facility] Start: 07-12-2021 End: 05-31-2022 Exposure to SARS-CoV-2 (event) Not sure [facility] Start: 11-04-2019 End: 08-10-2021 Tobacco use and exposure Never used [facility] Exposure to SARS-CoV -2 (event) Unable to assess [facility] Start: 11-23-2020 End: 12-06-2022 Alcohol intake [facility].; [facility] Start: 11-23-2020 History SDOH Alcohol Comment about q3mo [facility] End: 03-13-1989 History of tobacco use Cigarette Smoker [facility] Start: 04-27-2022 End: 12-06-2022 Alcohol intake Ex-drinker (finding) [facility] Start: 05-31-2022 End: 12-06-2022 Tobacco use panel [facility] Start: 07-20-2018 Gender identity Identifies as male gender (finding) [facility] Start: 07-20-2018 Sexual orientation Heterosexual (finding) [facility] Tobacco smoking status No Smokin g Status Entered [facility] Sex Assigned At Male [facility] Lack of Transportati on (Medical) No [facility] None. [facility], [employer].; [employer] [facility] Former smoker. [facility].; [facility] Functional Status Date Assessment Result Facility 11-27-2022 Functional Status Room check performed [facility] 11-27-2022 Functional Status [facility] 11-27-2022 Functional Status Breakfast Percent [address] [facility] 11-27-2022 Functional Status bilateral knee high applied/on [facility] 11-27-2022 Functional Status [facility] 11-27-2022 Functional Status [facility] 11-26-2022 Functional Status Nurse Pricilla you q2hrs Performed 7pm-11pm [facility] 11-26-2022 Functional Status [facility] 11-26-2022 Functional Status [facility] 11-26-2022 Functional Status [facility] 11-26-2022 Functional Status Assistive Isabel ce Walker [facility] 11-25-2022 Functional Status Independent [facility] 11-25-2022 Functional Status [facility] 11-25-2022 Functional Status Done [facility] 11-24-2022 Functional Status Pt's oldest da radha is a nurse and lives close. [facility] 11-24-2022 Functional Status Assistive Equi pment elevated on pillows [facility] 11-24-2022 Functional Status heel(s)s elevated [facility] 11-24-2022 Functional Status [facility] 11-24-2022 Functional Status [facility] 11-24-2022 Functional Status Sensory Deficits None [facility] NEGATED: Highlighted row Functional performance Functional status health issues are not documented [facility] Work Phone: Mental Status Date Assessment Result Facility 11-27-2022 Mental Status Orientation Orie nted x 4 [facility] 11-26-2022 [facility]-26[facility] Mental Status [facility] 11-26-2022 Mental Status Orientation Assessment Oriented x 4 [facility] 11-25-2022 Mental Status [facility] 11-25-2022 Mental Status [facility] NEGATED: Highlighted row Cognitive function [Interpretation] Cognitive status health issues are not documented [facility] Work Phone: Clinical Notes 08-03-2020 to 12-21-2022 Actions Note Date & Type Note Facility documented in this encounter [id number] History of Present illness Narrative* Sherry George, [...] unintentional weight loss. He was admitted to [facility] with sepsis 11/23 - 11/27/22, suspected to be from right sided perineal cellulitis. He never underwent I&D or debridement, and no other source of infection was found. He is currently taking a 2nd week of cefdinir and flagyl. 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 Ramirez General Surgeon, [facility]: Dr. Pizano CANCER HISTORY 03/2022 -- Colonoscopy: [...] (HCC) 03/2018 Coronary artery disease Dialysis patient ([facility]) M-W-F ED (erectile dysfunction) FSGS (focal segmental [...] BYPASS GRAFT; Surgeon: Mil Dee MD; Location[facility]; Service: Cardiothoracic CARDIAC CATHETERIZATION N/A 08/11/2014 Procedure: Left Heart Cath Possible PTCA/Stent; Surgeon: Lenin Ramirez MD; Location: [facility] INFORMATION OPERATOR; Service: CARDIAC CATHETERIZATION Right 12/31/2014 Procedure: Left Heart Cath Possible PTCA/Stent; Surgeon: Ranulfo Cobb MD; Location: [facility] INFORMATION OPERATOR; Service: CARDIAC CATHETERIZATION 08/11/2014 EF: 55% CARDIAC CATHETERIZATION 11/06/2006 EF: 45% CARDIAC CATHETERIZATION 08/09/2005 EF: 50% CARDIAC CATHETERIZATION 07/08/2005 EF: 45% CARDIAC CATHETERIZATION 12/31/2014 EF: 55% COLECTOMY RIGHT Right 04/26/2022 Procedure: RIGHT OPEN HEMICOLECTOMY; Surgeon: Sherry George DO; Location: [facility]; Service: General Surgery CORONARY ANGIOPLASTY WITH STENT PLACEMENT 08/09/2005 NORM- CX, RCA CORONARY ANGIOPLASTY WITH STENT PLACEMENT 07/08/2005 NORM- RCA CORONARY STENT PLACEMENT FOOT SURGERY Right hemodialysis fistula graft placement 12/14/2020 INSERTION PLEURAL CATHETER Right 01/18/2021 Procedure: RIGHT PLEUR X CATHETER PLACEMENT; Surgeon: Jalil Sparks MD; Location: [facility] HYBRID [facility]; Service: Cardiothoracic INSERTION PLEURAL CATHETER Left 01/19/2021 Procedure: LEFT PLEUR X CATHETER PLACEMENT; Surgeon: Jalil Sparks MD; Location: [facility]; Service: Cardiothoracic INTERVENTIONAL RADIOLOGY PROCEDURE 08/27/2020 IR THORACENTESIS LT 08/27/2020 Jesus Choudhary MD [facility] INTERVENTION RAD INTERVENTIONAL RADIOLOGY PROCEDURE 08/27/2020 IR THORACENTESIS RT 08/27/2020 Jesus Choudhary MD [facility] INTERVENTION RAD INTERVENTIONAL RADIOLOGY PROCEDURE 10/27/2020 IR THORACENTESIS LT 10/27/2020 Varun Kathleen MD [facility] INTERVENTION RAD INTERVENTIONAL RADIOLOGY PROCEDURE 10/27/2020 IR THORACENTESIS RT 10/27/2020 Varun Kathleen MD [facility] INTERVENTION RAD JOINT REPLACEMENT knee replacement KNEE SURGERY REMOVAL PLEURAL CATHETER Bilateral 08/12/2021 Procedure: BILATERAL PLEURAL CATHETERS REMOVAL; Surgeon: Jalil Sparks MD; Location: [facility]; Service: Cardiothoracic RENAL BIOPSY TONSILLECTOMY [...] months, for elevated CEA documented in this [id number] Evaluation + Plan note* Assessment & Plan [...] also not appropriate at the present time. [id number] Evaluation + Plan note* Assessment & Plan Note - Lenin Ramirez MD - 12/06/2022 12:27 PM EDTAssociated Problem(s): Hyperlipidemia He remains on moderate dose, high potency statin therapy which he tolerates well with adequate lipid levels. No changes were made today. [id number] Miscellaneous Notes* Assessment & Plan Note - [...] EDT Associated Problem(s): Coronary artery disease involving eklutna coronary artery of eklutna heart without angina pectoris Ed continues doing well from an ischemic standpoint with a long history of coronary disease status post surgical revascularization in August 2020. He has no angina and no nitroglycerin use. documented in this [id number] Evaluation + Plan note* Assessment & Plan [...] therapy given his persistent hypotension and hemodialysis. [id number] Evaluation + Plan note* Assessment & Plan Note - Lenin Ramirez MD - 12/06/2022 12:24 PM EDTAssociated Problem(s): Coronary artery disease involving eklutna coronary artery of eklutna heart without angina pectoris Ed continues doing well from an ischemic standpoint with a long history of coronary disease status post surgical revascularization in August 2020. He has no angina and no nitroglycerin use. [id number] History of Present illness Narrative* Lenin Ramirez [...] , Rfl: Assessment/Plan: Coronary artery disease involving eklutna coronary artery of eklutna heart without angina pectoris Ed continues doing [...] at the present time. documented in this [id number] Hospital Discharge instructions Patient Education 11/27/2022 13:25:49 [...] Follow these instructions at home: Medicines Take mgzu-txy-yhyabim and prescription medicines only as told by [...] often using soap and water. Use hand metal patternmaker apprentice if soap and water are not available. [...] 10/05/2018 Document Revised: 10/05/2018 Document Reviewed: 10/05/2018 [employer] Patient Education 2020 [employer] Follow Up Care 11/23/2022 18:14:48 With:ZACK OLMOS MD Address: [address] [place] [address] [place] [address] [phone] When:3-7 days [facility] 09-17-2023 Discharge summary Date [...] depression and gout. Patient was admitted to [facility] on 11/23/2022 as a transfer from [facility] due to septic shock secondary to peritoneal [...] OLMOS MD When Within 3-7 days Where: [address] [place] [address] [place] [address] [phone] Follow Up Labs/Studies 1. No follow up [...] KATELIN MEZA DO on 11/27/2022 02:06 PM [facility] [id number] Note Discharge Instructions Thank you for allowing [facility] to assist you with your healthcare needs. The following is importantdischarge information regarding your hospital visit. Your Care Team ZACK OLMOS MD What to do next Follow Up Appointments Follow Up with ZACK OLMOS MD When Within 3-7 days Where: [address] [place] [address] [place] [address] [phone] The Following Activity and Diet Have Been [...] and or supplements as they may interact [facility] medications. What How Much When Instructions Last Dose New cefdinir (cefdinir 300 mg oral capsule) 1 cap by mouth Every 24 hours Duration: 7 Days Pickup at [facility] New metroNIDAZOLE (metroNIDAZOLE 500 mg oral tablet) 1 tab(s) by mouth Every 8 hours Duration: 7 Days Pickup at [facility]24 Unchanged albuterol (albuterol 2.5 mg/ 3 [...] by mouth Once a day Pharmacy Information [facility]: [address] [place], [place] [phone] Please take this list to your next [...] Follow these instructions at home: Medicines Take aefk-tuz-hghbzns and prescription medicines only as told by [...] often using soap and water. Use hand metal patternmaker apprentice if soap and water are not available. [...] 10/05/2018 Document Revised: 10/05/2018 Document Reviewed: 10/05/2018 [employer] Patient Education 2020 [employer]. Additional Information VACCINATE! IT SAVES LIVES! Members of the community who have not yet received the COVID-19 vaccine and would like to receive it can visit one of [facility] vaccine clinics. There are many vaccine clinic locations within the [facility]. For locations and available times, please visit [email or web address].[place].gov/. It is important to note that some COVID mobile vaccine clinics are held outdoors and may be canceled in rainy or stormy conditions. To learn more about pediatric vaccinations (ages 5-11), we invite you to visit the [facility] webpage. https://www.[email or web address].org/pages/[email or web address]-Hvxah-Epwggcxcgbk-Vohheshdfm-Kvehd-Oou stions.htmlTo learn more about the COVID-19 vaccine, we invite you to visit the CDC website for a list of frequently asked questions.https://www.cdc.gov/coronavirus/2019-ncov/vaccines/faq.html [facility] Patient Portal Access Instructions: Stay connected with your healthcare team and access your personal medical information anytime with the [facility] Patient Portal. Please follow the directions below to create your [facility] account: 1.Access the email account you provided upon registration to the hospital/physician office.2.Look for an invitation email from [facility].3.Open the email and access the invitation link: AcceptInvitation to [facility].4.Fill in the required jimenez to create your account. To access your account, visit [employer]. Click the blue button labeled Access Patient [...] who you will allowto register on the [facility] Patient Portal for access to your information. You can also access the [facility] on the [place] Anywhere catracho. Simply click on Patient Portal and then log into your account. If you would like to receive a full copy of your medical records, please contact the [facility] Medical Records Department by calling [phone], Monday through Monday between 8 a.m. and [...] Call your local pharmacy or go to [email or web address]/[email or web address] to find one close to you.3.Make use of household items: Use cat litter or old coffee grounds to dispose medications if other options arenot available. Mix your drugs with these household products, seal them in an airtight container andthrow it into the garbage. Call [facility]: [phone] to be sure your drugs can be [...] aware that I should contact my doctor. Patient/Warp Preparer Signature: Date/Time: Relationship to Patient: Witness Name/Signature: Date/Time: [facility] [id number] Respiratory therapy Hospital Progress note Respiratory Therapy Evaluation Entered On: 11/27/2022 10:11 EDT Performed On: 11/27/2022 10:11 EDT by Zuly Rodriguez SHELLFISH HARVESTER Respiratory Therapy Evaluation RT Assessment [Frequency/Schedule] : changed to TID per protocol Zuly Rodriguez SHELLFISH HARVESTER - 11/27/2022 10:52 EDT Chest X-Ray : Infiltrates, atelectasis, pleural effusion Breath Sounds (RT) : Decreased bilaterally Respiratory Pattern (RT) : Regular RR=12-20 Cough (RT) : Strong, non-productive Respiratory Therapy Evaluation Score : 8 Respiratory Evaluation Triage Score : 4 - (6-10) Freq: TIDRT & Albuterol Q2hRT prn Zuly Rodriguez SHELLFISH HARVESTER - 11/27/2022 10:28 EDT Pulmonary Status : Pulmonary disorder Surgical Status : No surgeries Level of Activity : Ambulatory with assistance Mental Status : Alert, oriented Zuly Rodriguez SHELLFISH HARVESTER - 11/27/2022 10:11 EDT Digitally Signed by Zuly Rodriguez SHELLFISH HARVESTER on 11/27/2022 10:52 AM [id number] Note Date of Service 11/26/2022 Chief Complaint [...] depression and gout. Patient was [facility] to [facility] 11/23/2022 as a transfer from [facility] due to septic shock secondary to peritoneal [...] KATELIN MEZA DO on 11/26/2022 02:09 PM [facility] HospitalRyybyupb28-65-2818 Nephrology Progress note Date of Service November [...] ROSANNA KEITA MD on 11/26/2022 12:38 PM [facility] HospitalRjnkaksv83-85-1873 Note Date of Service 11/25/22 Chief Complaint [...] surgery and anxiety/depression. Patient was transferred from [facility] to [facility] on 11/23/2022 with worsening [...] blood pressure stabilized, he was transferred to [facility] on 11/25/2022. Patient seen today post dialysis [...] by JOHNNY VALENCIA on 11/25/2022 03:01 PM [facility] HospitalUhniuxzv02-92-2231 Note Date of Service 11/25/22 Chief Complaint [...] surgery and anxiety/depression. Patient was transferred from [facility] to [facility] on 11/23/2022 with worsening [...] blood pressure stabilized, he was transferred to [facility] on 11/25/2022. Patient seen today post dialysis [...] by JOHNNY VALENCIA on 11/25/2022 03:01 PM [facility] HospitalIqwrfogg70-16-6142 Nephrology Progress note Date of Service 11-25 [...] ASHLEY MARLEY MD on 11/25/2022 10:45 AM [facility] HospitalHnnegaew23-44-5439 Respiratory therapy Hospital Progress note Respiratory Therapy [...] by Avi Valencia on 11/24/2022 08:33 PM [facility] HospitalPpaymcle40-90-8237 History and physical note Date of Service 11/24/2022 Chief Complaint Weakness, fatigue, vomiting History of Present Illness This is a 77-year-old gentleman with history of ESRD on HD [M/W/F], CAD s/p CABG, Paroxysmal A.fib on Amiodarone, not on anticoagulation due to recurrent bleeding from dialysis site. He presents from [facility] for worsening right perianal pain associated with [...] cough, loss of consciousness. On arrival to [facility] he was hypotensive, tachycardic, in atrial fibrillation. He was given gentle IV fluids and broad-spectrum antibiotics. CT scan of the abdomen did not show any abscess/fluid collection. Chest x-ray showed no acute abnormality. He was started on peripheral norepinephrine andbe transferred to [facility] medical intensive care unit [...] CONRADO PEREZ MD on 11/24/2022 07:02 AM [facility] HospitalQqowltau89-83-2573 Evaluation + Plan noteExtracted from: Title:History and [...] STATUS Plan of care discussed with Dr. hCampion. Addendum by ANJALI LOPEZ MD on November 24, 2022 17:22:52 EDT Patient was seen and examined and discussed with housestaff History and physical was reviewed History present illness, past medical history, social history, medications, and review of systems all obtained. Physical examination performed This patient is 77 years old. He presented to the emergency room at [facility] in [place] with perianal pain and fatigue. Apparently, he was also noted to have altered mental status. This is after he underwent dialysis for his chronic end-stage kidney disease. He was found to have perianal redness, however, CT scan of the abdomen showed no abscess formation. He was found to be slightly hypotensive and was given IV fluids and started on norepinephrine and transferred to [facility]. Repeat CAT scan of [...] consultation if cellulitis worsens Anjali Lopez MD [facility] Diagnostic Tests Pending * Urinalysis 11/24/22 [facility] 09-14-2023 Nephrology Consult note [...] and alert. Able to tell me much of his history. No profound shortness of breath he [...] ASHLEY MARLEY MD on 11/24/2022 10:24 AM [facility] HospitalWtkmtuqh12-29-2120 Note ORIGINAL EXAMINATION: CT OF THE ABDOMEN [...] Sign Date: 11/24/2022 7:33:13 AM Ordering Provider: [facility]09-14-2023 Note ORIGINAL EXAMINATION: ONE XRAY VIEW OF [...] Sign Date: 11/24/2022 6:36:00 AM Ordering Provider: [facility]09-14-2023 NoteAtrial fibrillation Nonspecific IVCD with LAD Inferior infarct, old Electronic Signature: TIP LUCIO MD 11/24/2022 12:14:16[facility] 09-14-2023 History and physical note Date of Service 11/24/2022 Chief Complaint Weakness, fatigue, vomiting History of Present Illness This is a 77-year-old gentleman with history of ESRD on HD [M/W/F], CAD s/p CABG, Paroxysmal A.fib on Amiodarone, not on anticoagulation due to recurrent bleeding from dialysis site. He presents from [facility] for worsening right perianal pain associated with [...] cough, loss of consciousness. On arrival to [facility] he was hypotensive, tachycardic, in atrial fibrillation. He was given gentle IV fluids and broad-spectrum antibiotics. CT scan of the abdomen did not show any abscess/fluid collection. Chest x-ray showed no acute abnormality. He was started on peripheral norepinephrine andbe transferred to [facility] medical intensive care unit [...] CONRADO PEREZ MD on 11/24/2022 07:02 AM [facility] HospitalCxhmwnsl32-91-7914 Telephone encounter Note* Telephone Encounter - Lima Beasley TECHNOLOGIST - 11/03/2022 3:01 PM EDT Prescription for Amiodarone 100 was sent to the wrong pharmacy [id number] Miscellaneous Notes* Telephone Encounter - Lima Beasley TECHNOLOGIST - 11/03/2022 3:01 PM EDT Prescription for Amiodarone 100 was sent to the wrong pharmacy documented in this [id number] Patient's home Progress note* Actions The pt's dressing and wound care had been completed earlier this morning. The pt is requesting that the dressing not be removed, and no picture taken as the wound is in a private area, and the pt has a visitor present at this time. The pt does not wish to interrupt the visit. documented in this encounter [id number] Patient's home Progress note* Actions Rehab Potential: good Clinical Summary/ DINORAH Otis the Picture: Cert period 10/28/22 - 12-26-22 Why is home care continuing to see this patient (any change in status, diagnosis, or new treatments)? Wound education/assessment. Pt still has small open area to his coccyx. Amirah continues to be placed in the wound bed, and has shown progress. Was there any change in the disciplines caring for this patient (new PT, IRON SETTER d/c)? No. SN continues. Any labs or [...] home care services. documented in this encounter [id number] Patient's home Progress note* Actions Rehab Potential: good Clinical Summary/ DINORAH Otis the Picture: Cert period 10/28/22 - 12-26-22 Why is home care continuing to see this patient (any change in status, diagnosis, or new treatments)? Wound education/assessment. Pt still has small open area to his coccyx. Amirah continues to be placed in the wound bed, and has shown progress. Was there any change in the disciplines caring for this patient (new PT, IRON SETTER d/c)? No. SN continues. Any labs or [...] home care services. documented in this encounter [id number] Patient's home Progress note* Actions The pt's dressing and wound care had been completed earlier this morning. The pt is requesting that the dressing not be removed, and no picture taken as the wound is in a private area, and the pt has a visitor present at this time. The pt does not wish to interrupt the visit. documented in this encounter [id number] Telephone encounter Note* Telephone Encounter - Dee [...] I received assistance letter ($1200) from [facility] for Verquvo 5mg tab. Ed has not [...] We will see you December 06.Janae Gonzalez [id number] Miscellaneous Notes* Telephone Encounter - Dee Winston [...] I received assistance letter ($1200) from [facility] for Verquvo 5mg tab. Ed has not [...] you December 06.Janae Gonzalez documented in this [id number] Patient's home Progress note* Actions The pt's dressing and wound care had been completed earlier this morning. The pt is requesting that the dressing not be removed, and no picture taken as the wound is in a private area, and the pt has a visitor present at this time. The pt does not wish to interrupt the visit. documented in this encounter [id number] Note* Addendum Note - Froy Mason CRNA - 10/14/2022 3:49 PM EDT Addendum created 10/14/22 154 by Froy Mason CRNA Clinical Note Signed, Intraprocedure Blocks edited [id number] Miscellaneous Notes* Addendum Note - Froy Mason CRNA - 10/14/2022 3:49 PM EDT Addendum created 10/14/22 154 by Froy Mason CRNA Clinical Note Signed, Intraprocedure Blocks edited documented in this [id number] Patient's home Progress note* Actions The pt stands at his rollato r when his wound care is performed. Today, the picture was taken, as it was last week, with the [employer] catracho. the phone was then set down, [...] the face page of the pt on [employer] was visible. the photo was lost. Measurements recorded. documented in this encounter [id number] Miscellaneous Notes* Home Health - Amparo Goel LPN - 08/18/2022 2:54 PM EDT Missed Visit. Patient did not want a visit. today. documented in this [id number] Patient's home Note* Home Health - Amparo Goel LPN - 08/18/2022 2:54 PM EDT Missed Visit. Patient did not want a visit. today. [id number] Telephone encounter Note* Telephone Encounter - Lima Beasley TECHNOLOGIST - 07/26/2022 9:00 AM EDT Amiodarone 200mg was DC'd [id number] Miscellaneous Notes* Telephone Encounter - Lima Beasley TECHNOLOGIST - 07/26/2022 9:00 AM EDT Amiodarone 200mg was DC'd documented in this [id number] Patient's home Progress note* Narratives Pt and spouse agreeable to d ischarge today. Pt reports attempts compliance with HEP daily, and is trying to walk more. Pt mowed his yard yesterday on the riding mower. documented in this encounter [id number] Evaluation + Plan note* Assessment & Plan Note - Lenin Ramirez MD - 05/31/2022 12:12 PM EDTAssociated Problem(s): Chronic systolic congestive heart failure (HCC) His recent echocardiogram read demonstrated significant LV dysfunction with an ejection fraction approximate 25 to 30%. Fortunately he has no overt signs or symptoms of heart failure on his current regimen. No changes were made today. [id number] Evaluation + Plan note* Assessment & Plan Note - Lenin Ramirez MD - 05/31/2022 12:12 PM EDTAssociated Problem(s): Essential hypertension His blood pressure which had been quite labile because of his hemodialysis, has been reasonably well controlled on his current regimen with no significant highs or lows. I made no changes today. [id number] Miscellaneous Notes* Assessment & Plan Note - [...] EDT Associated Problem(s): Coronary artery disease involving eklutna coronary artery of eklutna heart without angina pectoris Given the extensive nature of this gentlemen's disease he is actually doing quite well now several years post CABG. He has no ischemic symptoms and remains relatively functional given all his other issues. No changes were made in his antianginal therapy. documented in this [id number] Evaluation + Plan note* Assessment & Plan Note - Lenin Ramirez MD - 05/31/2022 12:11 PM EDT Associated Problem(s): Coronary artery disease involving eklutna coronary artery of eklutna heart without angina pectoris Given the extensive nature of this gentlemen's disease he is actually doing quite well now several years post CABG. He has no ischemic symptoms and remains relatively functional given all his other issues. No changes were made in his antianginal therapy. [id number] History of Present illness Narrative* Lenin Ramirez [...] standpoint. He is scheduled to see his bowling ball molder soon and I reiterated the importance of [...] 25 tablet, Rfl: 4 OXY[facility] Administer 3 L into one nostril as [...] Rfl: 3 Assessment/Plan: Coronary artery disease involving eklutna coronary artery of eklutna heart without angina pectoris Given the extensive [...] changes were made today. documented in this [id number] Patient's home Progress note* Narratives 76 yo male referred to [facility] services following hospitalization from 04/26/22-04/30/22 for R colon cancer and is s/p hemicolectomy on 04/26/22. Pt is on continuous O2 with BiPAP. PMHX: malignant neoplasm of ascending colon, MARCELO on CPAP, B pleural effusion, COPD, paraoxysmal v-tach, HTN, CAD, NSTEMI, paraoxysmal a-fib, CKD stage IV, ESRD on dialysis, dyspnea on exertion, ME s/p CABG in 10/2020, anemia, PNA, sepsis, [...] wheel chair, transport chair, FWW, lift chair, director fraud, tripod cane, bath chair, elevated toilet seat, [...] complete, PT 2x2, 1x1 Skilled interventions at [facility] included: Education provided for edema management, abdominal precautions, abdominal bracing, avoidance of valsalva, recommended use of gait belt and POC with pt and spouse agreeing/consenting. All questions answered, contact information provided for future questions/concerns. documented in this encounter [id number] Anesthesiology Postoperative evaluation and management note * Anesthesia Postprocedure Evaluation - Juan Mccallum MD - 04/26/2022 12:00 PM EST Anesthesia Post Evaluation * * Refer to nursing documentation for PACU vitals * * Patient participation: patient participated Mental status: sleepy but conscious Pain management: adequate Anesthetic complications: no Nausea / vomiting: no Respiratory / airway status: nasal cannula Postoperative hydration: hemodynamically stable [facility] Work Phone: 1(439) 913-962902-14-2023 Surgical operation note* Anesthesia Postprocedure Evaluation - [...] Comment: 11/09/2021 7:47 AM Patient Status: Outpatient Award Clerk: Zenia Randolph, ISIDORO, RVT Exam Type: ECHOCARDIOGRAM LIMITED WITH CONTRAST Study Info Indications - Re-assess LV function I50.22 - Chronic systolic (congestive) heart failure Referring Physician: LENIN RAMIREZ ; [id number] BMI: 29.91 kg/m2 Summary 1. Limited Empty [...] anemia Other Positive: cancer documented in this [id number] Procedure anesthesia Narrative * Procedure Summary Procedure [...] Андрей Claros RN documented in this encounter [id number] Anesthesiology procedure note* Anesthesia Procedure Notes - Froy Mason CRNA - 04/26/2022 10:19 AM ESTAssociated Order(s): NG/OG Tube NG/OG Tube Tube type: orogastric Tube size: 18 Fr Tube location: mouth Placement verification: suction return *See MAR for medication administration [facility] Work Phone: 1(754) 450-536302-14-2023 Anesthesiology procedure note* Anesthesia Procedure Notes - [...] medic student *See MAR for medication administration [id number] Anesthesiology Preoperative evaluation and management note * [...] Comment: 11/09/2021 7:47 AM Patient Status: Outpatient Award Clerk: Zenia Randolph, VINICIUSCS, RVT Exam Type: ECHOCARDIOGRAM LIMITED WITH CONTRAST Study Info Indications - Re-assess LV function I50.22 - Chronic systolic (congestive) heart failure Referring Physician: LENIN RAMIREZ ; [id number] BMI: 29.91 kg/m2 Summary 1. Limited Empty [...] / Musculoskeletal Positive: anemia Other Positive: cancer [id number] History of Present illness Narrative* Sherry George DO - 04/06/2022 8:39 AM EST NEW PATIENT -- CECAL MASS This is a 76 y/o male who presents to office at the request of Dr. Pizano, surgeon at [facility], for evaluation and treatment of a cecal [...] albuminuria creatinine ratio less than 30 mg/g ([facility]) COPD, severe ([facility]) 03/2018 Coronary artery disease FSGS (focal segmental glomerulosclerosis) Hyperlipidemia Hypertension MRSA (methicillin resistant Staphylococcus aureus) UNKNOWN Myocardial infarction ([facility]) NYHA class 4 heart failure with reduced ejection fraction ([facility]) LVEF 30% MARCELO on CPAP 2018 Pneumonia Sepsis ([facility]) Current Outpatient Medications: acetaminophen (TYLENOL) 325 MG [...] BYPASS GRAFT; Surgeon: Mil Dee MD; [place] [facility] [place]; Service: Cardiothoracic CARDIAC CATHETERIZATION N/A 08/11/2014 Procedure: Left Heart Cath Possible PTCA/Stent; Surgeon: Lenin Ramirez MD; Location: [facility] INFORMATION OPERATOR; Service: CARDIAC CATHETERIZATION Right 12/31/2014 Procedure: Left Heart Cath Possible PTCA/Stent; Surgeon: Ranulfo Cobb MD; Location: [facility] INFORMATION OPERATOR; Service: CARDIAC CATHETERIZATION 08/11/2014 EF: 55% CARDIAC [...] CATHETER PLACEMENT; Surgeon: Jalil Sparks MD; Location: [facility] HYBRID OR; Service: Cardiothoracic INSERTION PLEURAL CATHETER Left 01/19/2021 Procedure: LEFT PLEUR X CATHETER PLACEMENT; Surgeon: Jalil Sparks MD; Location: [facility] [place]; Service: Cardiothoracic INTERVENTIONAL RADIOLOGY PROCEDURE 08/27/2020 IR THORACENTESIS LT 08/27/2020 Jesus Choudhary MD [facility] INTERVENTION RAD INTERVENTIONAL RADIOLOGY PROCEDURE 08/27/2020 IR THORACENTESIS RT 08/27/2020 Jesus Choudhary MD [facility] INTERVENTION RAD INTERVENTIONAL RADIOLOGY PROCEDURE 10/27/2020 IR THORACENTESIS LT 10/27/2020 Varun Kathleen MD [facility] INTERVENTION RAD INTERVENTIONAL RADIOLOGY PROCEDURE 10/27/2020 IR THORACENTESIS RT 10/27/2020 Varun Kathleen MD [facility] INTERVENTION RAD JOINT REPLACEMENT knee replacement KNEE SURGERY REMOVAL PLEURAL CATHETER Bilateral 08/12/2021 Procedure: BILATERAL PLEURAL CATHETERS REMOVAL; Surgeon: Jalil Sparks MD; Location: [facility] [place]; Service: Cardiothoracic RENAL BIOPSY TONSILLECTOMY [...] ascending colon (HCC) Coronary artery disease involving eklutna coronary artery of eklutna heart without angina pectoris S/P CABG (coronary [...] medical and cardiac clearance documented in this [id number] History of Present illness Narrative* Christina Hanley RN - 12/15/2021 3:23 PM EDT Referral received from [facility] today--Call received from [facility] to see if [facility] could accept. Katt at [facility] at this time, advised [facility] could not accept documented in this [id number] Note* Addendum Note - Rachel Strange MA - 09/01/2021 1:56 PM EDTAddended by: RACHEL STRANGE on: 09/01/2021 01:56 PM Modules accepted: Orders [id number] Note* Addendum Note - Rachel Strange MA - 09/01/2021 1:56 PM EDTAddended by: RACHEL STRANGE on: 09/01/2021 01:56 PM Modules accepted: Orders [id number] Miscellaneous Notes* Addendum Note - Rachel Strange [...] as well. Called pharmacy and spoke to [employer] and she ran the voucher card it covered the 2.5 mg for 2 weeks. Will mail the patient 5 mg samples to cover the other 2 weeks. Called and spoke to patient's and explained the above. She was very thankful. Verquvo 5 mg every day Qty 14 Lot- [id number] EXP-04/15/2022 * Telephone Encounter - Lenin Ramirez [...] assured me they have a very generous' Biometrics Technician program. * Telephone Encounter - Rachel Strange MA - 09/01/2021 12:27 PM EDT Once rx is sent and signed, I will call pharmacy and check roque. I also reached out to the rep, will wait to hear a response regarding assistance with the drug. Samples are available of this drug though at [facility], if needed. * Telephone Encounter - [...] increase to5 mg daily. documented in this [id number] Miscellaneous Notes* Addendum Note - Rachel Strange MA - 09/01/2021 1:56 PM EDTAddended by: RACHEL STRANGE on: 09/01/2021 01:56 PM Modules accepted: Orders * Telephone Encounter - Rachel Strange MA - 09/01/2021 1:20 PM EDT Yes, of course. Called and spoke to [employer] to get a copay for the med and it will require a PA first.I will work on PA once it comes through fax. Rep stopped by and gave me free 30 day voucher cards, which covers the 2.5 mg for 2 weeks and 5 mg for 2 weeks as well. Called pharmacy and spoke to [employer] and she ran the voucher card it covered the 2.5 mg for 2 weeks. Will mail the patient 5 mg samples to cover the other 2 weeks. Called and spoke to patient's and explained the above. She was very thankful. Verquvo 5 mg every day Qty 14 Lot- [id number] EXP-04/15/2022 * Telephone Encounter - Lenin Ramirez [...] assured me they have a very generous' Biometrics Technician program. * Telephone Encounter - Rachel Strange MA - 09/01/2021 12:27 PM EDT Once rx is sent and signed, I will call pharmacy and check roque. I also reached out to the rep, will wait to hear a response regarding assistance with the drug. Samples are available of this drug though at [facility], if needed. * Telephone Encounter - [...] increase to5 mg daily. documented in this [id number] Telephone encounter Note* Telephone Encounter - Rachel Strange MA - 09/01/2021 1:20 PM EDT Yes, of course. Called and spoke to [employer] to get a copay for the med and it will require a PA first.I will work on PA once it comes through fax. Rep stopped by and gave me free 30 day voucher cards, which covers the 2.5 mg for 2 weeks and 5 mg for 2 weeks as well. Called pharmacy and spoke to [employer] and she ran the voucher card it covered the 2.5 mg for 2 weeks. Will mail the patient 5 mg samples to cover the other 2 weeks. Called and spoke to patient's and explained the above. She was very thankful. Verquvo 5 mg every day Qty 14 Lot- [id number] EXP-04/15/2022 [id number] Telephone encounter Note* Telephone Encounter - Lenin Ramirez MD - 09/01/2021 1:03 PM EDT Thank you. Is there a chance we could send Ed 2 weeks of the 2.5 dose followed by 2 weeks of the 5.0 dose. If he tolerates that then we can work on the prescription. I did speak with the rep at the [facility] last week and he assured me they have a very generous' Biometrics Technician program. [id number] Miscellaneous Notes* Telephone Encounter - Lenin Ramirez MD - 09/01/2021 1:03 PM EDT Thank you. Is there a chance we could send Ed 2 weeks of the 2.5 dose followed by 2 weeks of the 5.0 dose. If he tolerates that then we can work on the prescription. I did speak with the rep at the [facility] last week and he assured me they have a very generous' Biometrics Technician program. * Telephone Encounter - Rachel Strange MA - 09/01/2021 12:27 PM EDT Once rx is sent and signed, I will call pharmacy and check roque. I also reached out to the rep, will wait to hear a response regarding assistance with the drug. Samples are available of this drug though at [facility], if needed. * Telephone Encounter - [...] increase to5 mg daily. documented in this [id number] Telephone encounter Note* Telephone Encounter - Rachel Strange MA - 09/01/2021 12:27 PM EDT Once rx is sent and signed, I will call pharmacy and check roque. I also reached out to the rep, will wait to hear a response regarding assistance with the drug. Samples are available of this drug though at [facility], if needed. [id number] Telephone encounter Note* Telephone Encounter - Dee [...] 2 weeks then increase to5 mg daily. [id number] Patient's home Progress note* Actions Call made [...] or his . documented in this encounter [id number] Evaluation + Plan note* Assessment & Plan Note - Lenin Ramirez MD - 08/17/2021 12:40 PM EDTAssociated Problem(s): Essential hypertension His blood pressure is excellent on his current regimen. I made no changes today. [id number] Evaluation + Plan note* Assessment & Plan Note - Lenin Ramirez MD - 08/17/2021 12:40 PM EDTAssociated Problem(s): Coronary artery disease involving eklutna coronary artery of eklutna heart without angina pectoris He has no ischemic changes on his EKG and no ischemic symptoms. [id number] Miscellaneous Notes* Assessment & Plan Note - Lenin Ramirez MD - 08/17/2021 12:40 PM EDTAssociated Problem(s): Essential hypertension His blood pressure is excellent on his current regimen. I made no changes today. * Assessment & Plan Note - Lenin Ramirez MD - 08/17/2021 12:40 PM EDT Associated Problem(s): Coronary artery disease involving eklutna coronary artery of eklutna heart without angina pectoris He has no [...] candidate for device implantation. documented in this [id number] Evaluation + Plan note* Assessment & Plan [...] may be a candidate for device implantation. [id number] History of Present illness Narrative* Lenin Ramirez [...] rhythm with sinus arrhythmia, possible old anterior ME, nonspecific T wave changes. Assessment/Plan: Chronic systolic [...] for device implantation. Coronary artery disease involving eklutna coronary artery of eklutna heart without angina pectoris He has no ischemic changes on his EKG and no ischemic symptoms. Essential hypertension His blood pressure is excellent on his current regimen. I made no changes today. documented in this [id number] Patient's home Progress note* Actions Pt had his pleurex drains re moved last week. Sites are CDI open to air. Pt was started on new medication to assist with sleep and some restless leg problems he has been having at night. [facility] plan is to make 2 more visits over the next 2 weeks and then discharge. documented in this encounter [id number] History of Present illness Narrative* Niurka Santana PA-C - 08/03/2021 10:45 AM EDT Spoke to Mrs Gonzalez over the phone to review recent CT results for her and plan to remove both of his pleural catheters as they have not been putting out any drainage for quite some time. Tentative plan for next . She verbalized understanding and was agreeable. documented in this [id number] Patient's home Progress note* Actions Call placed [...] voicemail available for the nurse line. Only computer numerical control grinder Nilesh. Another call will be made tomorrow [...] his incentive spirometer. documented in this encounter [id number] Patient's home Progress note* Actions Pleurex catheters were not d rained today. The pt has a f/u appt with the surgeon in 2 days to discuss the possiblity of removing them d/t the drains not putting out any drainage over the last 3 weeks. documented in this encounter [id number] Miscellaneous Notes* Telephone Encounter - Lima Beasley TECHNOLOGIST - 04/29/2021 2:34 PM EST Pt needs samples of Eliquis 5mg mailed to him documented in this [id number] History of Present illness Narrative* Jalil Sparks [...] albuminuria creatinine ratio less than 30 mg/g ([facility]) COPD, severe ([facility]) 03/2018 Coronary artery disease FSGS (focal segmental glomerulosclerosis) Hyperlipidemia Hypertension Myocardial infarction ([facility]) NYHA class 4 heart failure with reduced ejection fraction ([facility]) LVEF 30% MARCELO on CPAP 2018 Past Surgical History: Procedure Laterality Date CABG N/A 09/03/2020 Procedure: CORONARY ARTERY BYPASS GRAFT; Surgeon: Mil Dee MD; Location[place] [facility] [place]; Service: Cardiothoracic CARDIAC CATHETERIZATION N/A 08/11/2014 Procedure: Left Heart Cath Possible PTCA/Stent; Surgeon: Lenin Ramirez MD; Location: [facility] INFORMATION OPERATOR; Service: CARDIAC CATHETERIZATION Right 12/31/2014 Procedure: Left Heart Cath Possible PTCA/Stent; Surgeon: Ranulfo Cobb MD; Location: [facility] INFORMATION OPERATOR; Service: CARDIAC CATHETERIZATION 08/11/2014 EF: 55% CARDIAC [...] CATHETER PLACEMENT; Surgeon: Jalil Sparks MD; Location: [facility] HYBRID OR; Service: Cardiothoracic INSERTION PLEURAL CATHETER Left 01/19/2021 Procedure: LEFT PLEUR X CATHETER PLACEMENT; Surgeon: Jalil Sparks MD; Location: [facility]; Service: Cardiothoracic INTERVENTIONAL RADIOLOGY PROCEDURE 08/27/2020 IR THORACENTESIS LT 08/27/2020 Jesus Choudhary MD [facility] INTERVENTION RAD INTERVENTIONAL RADIOLOGY PROCEDURE 08/27/2020 IR THORACENTESIS RT 08/27/2020 Jesus Choudhary MD [facility] INTERVENTION RAD INTERVENTIONAL RADIOLOGY PROCEDURE 10/27/2020 IR THORACENTESIS LT 10/27/2020 Varun Kathleen MD [facility] INTERVENTION RAD INTERVENTIONAL RADIOLOGY PROCEDURE 10/27/2020 IR THORACENTESIS RT 10/27/2020 Varun Kathleen MD [facility] INTERVENTION RAD JOINT REPLACEMENT knee replacement KNEE [...] Imaging: CXR reviewed today. Jalil Sparks MD [facility] [address], [address] [place] [address] Office: [phone] [email or web address] documented in this [id number] History of Present illness Narrative* Niurka Santana [...] can contact our office. documented in this [id number] Miscellaneous Notes* Addendum Note - Erick Devi MD - 01/18/2021 12:11 PM EST Addendum created 01/18/21 1211 by Erick Devi MD Attestation recorded in Intraprocedure, Intraprocedure Attestations filed documented in this [id number] Procedure anesthesia Narrative * Procedure Summary Procedure [...] Radha Lopez RN documented in this encounter [id number] Surgical operation note* Anesthesia Postprocedure Evaluation - [...] COPD sleep apnea Cardiovascular Positive: hypertension past ME, CAD, CABG/stent, dysrhythmias (VTACH, PAF) CHF, hyperlipidemia, cardiomyopathy pulmonary hypertension Gastrointestinal / Hepatic / Renal Positive: renal disease and CRI Endocrine / Musculoskeletal Positive: anemia documented in this [id number] History of Present illness Narrative* Jalil Sparks [...] 2 (two) times a day [facility] [id number] [facility] [id number] [facility] [address]6 [place] [id number] . ASCORBATE CALCIUM (VITAMIN C ORAL) Take [...] albuminuria creatinine ratio less than 30 mg/g ([facility]) COPD, severe ([facility]) 03/2018 Coronary artery disease FSGS (focal segmental glomerulosclerosis) Hyperlipidemia Hypertension Myocardial infarction (HCC) 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) LVEF 30% MARCELO on CPAP 2018 Past Surgical History: Procedure Laterality Date CABG N/A 09/03/2020 Procedure: CORONARY ARTERY BYPASS GRAFT; Surgeon: Mil Dee MD; Location: [facility]; Service: Cardiothoracic CARDIAC CATHETERIZATION N/A 08/11/2014 Procedure: Left Heart Cath Possible PTCA/Stent; Surgeon: Lenin Ramirez MD; Location: [facility] INFORMATION OPERATOR; Service: CARDIAC CATHETERIZATION Right 12/31/2014 Procedure: Left Heart Cath Possible PTCA/Stent; Surgeon: Ranulfo Cobb MD; Location: [facility] INFORMATION OPERATOR; Service: CARDIAC CATHETERIZATION 08/11/2014 EF: 55% CARDIAC [...] IR THORACENTESIS LT 08/27/2020 Jesus Choudhary MD [facility] INTERVENTION RAD INTERVENTIONAL RADIOLOGY PROCEDURE 08/27/2020 IR THORACENTESIS RT 08/27/2020 Jesus Choudhary MD [facility] INTERVENTION RAD INTERVENTIONAL RADIOLOGY PROCEDURE 10/27/2020 IR THORACENTESIS LT 10/27/2020 Varun Kathleen MD [facility] INTERVENTION RAD INTERVENTIONAL RADIOLOGY PROCEDURE 10/27/2020 IR THORACENTESIS RT 10/27/2020 Varun Kathleen MD [facility] INTERVENTION RAD JOINT REPLACEMENT knee replacement KNEE [...] Friends and Family: Not on file Attends Jehov[employer] Witness Services: Not on file Active Member of [...] on the right. ECO Jalil Sparks MD [facility] [address], [address] [place] [address] Office: [phone] [email or web address] documented in this [id number] Miscellaneous Notes* Assessment & Plan Note - Park Hawk CNP - 01/04/2021 4:35 PM EDT Associated Problem(s): Chronic systolic congestive heart failure (HCC) Ed continues to have ongoing issues with fluid overload. He had a right thoracentesis on 1at [facility] with 550 mL removed. He has had increasing dyspnea on exertion over the past week and had a chest x- ray on 01/01/2021. He was notified today that the pleural effusions. [facility] contacted and Ed will have a thoracentesis [...] 2 months of placement. documented in this [id number] History of Present illness Narrative* Park Hawk CNP - 01/04/2021 4:28 PM EDT [facility] [address] [facility] [address] [facility] [id number] Assessment & Plan: Stage 4 chronic kidney disease (HCC) Ed has AV fistula constructed 12/14/2020. The wait time for beginning hemodialysis at some point after 2 months of placement. Chronic systolic congestive heart failure (HCC) Ed continues to have ongoing issues with fluid overload. He had a right thoracentesis on 12/25/2020t [facility] with 550 mL removed. He has had increasing dyspnea on exertion over the past week and had a chest x- ray on 01/01/2021. He was notified today that the pleural effusions. [facility] contacted and Ed will have a thoracentesis [...] office today for Follow-up (go over Xray [place] SOB/ - Booster? Dr Ramirez said not to last time he had the Moderna Restless legs per James possibly remove the AMIO Melationin did not work ) HPI: Minh Gonzalez is here today as a result of him calling the office today stating that he was notified by his lemon picker's office that his pleural effusions were worse [...] albuminuria creatinine ratio less than 30 mg/g ([facility]) COPD, severe ([facility]) 03/2018 Coronary artery disease FSGS (focal segmental glomerulosclerosis) Hyperlipidemia Hypertension Myocardial infarction ([facility]) NYHA class 4 heart failure with reduced ejection fraction ([facility]) LVEF 30% MARCELO on CPAP 2018 Past Surgical History: Procedure Laterality Date CABG N/A 09/03/2020 Procedure: CORONARY ARTERY BYPASS GRAFT; Surgeon: Mil Dee MD; Location: [facility]; Service: Cardiothoracic CARDIAC CATHETERIZATION N/A 08/11/2014 Procedure: Left Heart Cath Possible PTCA/Stent; Surgeon: Lenin Ramirez MD; Location: [facility] INFORMATION OPERATOR; Service: CARDIAC CATHETERIZATION Right 12/31/2014 Procedure: Left Heart Cath Possible PTCA/Stent; Surgeon: Ranulfo Cobb MD; Location: [facility] INFORMATION OPERATOR; Service: CARDIAC CATHETERIZATION 08/11/2014 EF: 55% CARDIAC [...] IR THORACENTESIS LT 08/27/2020 Jesus Choudhary MD [facility] INTERVENTION RAD INTERVENTIONAL RADIOLOGY PROCEDURE 08/27/2020 IR THORACENTESIS RT 08/27/2020 Jesus Choudhary MD [facility] INTERVENTION RAD INTERVENTIONAL RADIOLOGY PROCEDURE 10/27/2020 IR THORACENTESIS LT 10/27/2020 Varun Kathleen MD [facility] INTERVENTION RAD INTERVENTIONAL RADIOLOGY PROCEDURE 10/27/2020 IR THORACENTESIS RT 10/27/2020 Varun Kathleen MD [facility] INTERVENTION RAD JOINT REPLACEMENT knee replacement KNEE [...] 2 (two) times a day [facility] [id number] [facility] [id number] [facility] [address] [place] [phone] . ASPIRIN ORAL Take 81 mg by [...] 5' 7 27 minutes spent with patient [id number] Follow Up Ordered: Return for Appointment as scheduled in February with [facility] SKATING INSTRUCTOR in [place]. Park Hawk CNP * Demetrice Jain MA [...] patient is not nervous/anxious. documented in this [id number] Miscellaneous Notes* Assessment & Plan Note - [...] EDT Associated Problem(s): Coronary artery disease involving eklutna coronary artery of eklutna heart without angina pectoris From ischemic issue Ed is doing quite well with no recurrent angina or other associated symptoms. No changes were made in his medicines. documented in this [id number] History of Present illness Narrative* Lenin Ramirez [...] and is considering initiation of dialysis in [facility] several months. He has had no ischemic [...] 2 (two) times a day [facility] [id number] [facility] [phone] [facility] [address] [place] [id number] . ASCORBATE CALCIUM (VITAMIN C ORAL) Take [...] tablets . Assessment/Plan: Coronary artery disease involving eklutna coronary artery of eklutna heart without angina pectoris From ischemic issue [...] of Systems Cardiovascular: Negative. documented in this [id number] Miscellaneous Notes* Assessment & Plan Note - [...] not requiring supplemental O2 documented in this [id number] History of Present illness Narrative* Park Hawk CNP - 11/23/2020 1:49 PM EDT [facility] [address] [facility] [address] [facility] [address] Assessment & Plan: MARCELO on CPAP Uses [...] August. His most recent procedure was in [place] on 11/11/2020. Today he states he feels [...] albuminuria creatinine ratio less than 30 mg/g ([facility]) COPD, severe ([facility]) 03/2018 Coronary artery disease FSGS (focal segmental glomerulosclerosis) Hyperlipidemia Hypertension Myocardial infarction ([facility]) NYHA class 4 heart failure with reduced ejection fraction ([facility]) LVEF 30% MARCELO on CPAP 2018 Past Surgical History: Procedure Laterality Date CABG N/A 09/03/2020 Procedure: CORONARY ARTERY BYPASS GRAFT; Surgeon: Mil Dee MD; Location: [facility]; Service: Cardiothoracic CARDIAC CATHETERIZATION N/A 08/11/2014 Procedure: Left Heart Cath Possible PTCA/Stent; Surgeon: Lenin Ramirez MD; Location: [facility] INFORMATION OPERATOR; Service: CARDIAC CATHETERIZATION Right 12/31/2014 Procedure: Left Heart Cath Possible PTCA/Stent; Surgeon: Ranulfo Cobb MD; Location: [facility] INFORMATION OPERATOR; Service: CARDIAC CATHETERIZATION 08/11/2014 EF: 55% CARDIAC CATHETERIZATION 11/06/2006 EF: 45% CARDIAC CATHETERIZATION 08/09/2005 EF: 50% CARDIAC CATHETERIZATION 07/08/2005 EF: 45% CARDIAC CATHETERIZATION 12/31/2014 EF: 55% CORONARY ANGIOPLASTY WITH STENT PLACEMENT 08/09/2005 NORM- CX, RCA CORONARY ANGIOPLASTY WITH STENT PLACEMENT 07/08/2005 NORM- RCA CORONARY STENT PLACEMENT FOOT SURGERY Right INTERVENTIONAL RADIOLOGY PROCEDURE 08/27/2020 IR THORACENTESIS LT 08/27/2020 Jesus Choudhary MD [facility] INTERVENTION RAD INTERVENTIONAL RADIOLOGY PROCEDURE 08/27/2020 IR THORACENTESIS RT 08/27/2020 Jesus Choudhary MD [facility] INTERVENTION RAD INTERVENTIONAL RADIOLOGY PROCEDURE 10/27/2020 IR THORACENTESIS LT 10/27/2020 Varun Kathleen MD [facility] INTERVENTION RAD INTERVENTIONAL RADIOLOGY PROCEDURE 10/27/2020 IR THORACENTESIS RT 10/27/2020 Varun Kathleen MD [facility] INTERVENTION RAD JOINT REPLACEMENT knee replacement KNEE [...] 2 (two) times a day [facility] [id number] [facility] [phone] [facility] [address] [place] [id number] . ASPIRIN ORAL Take 81 mg by [...] 5' 7 25 minutes spent with patient [id number] Follow Up Ordered: Return for As scheduled [...] patient is not nervous/anxious. documented in this [id number] Miscellaneous Notes* Assessment & Plan Note - [...] EDT Associated Problem(s): PAF (paroxysmal atrial fibrillation) ([facility]) ECG today continues to demonstrate atrial fibrillation [...] to needing supplemental O2. documented in this [id number] History of Present illness Narrative* Park Hawk CNP - 10/26/2020 8:25 AM EDT [facility] [address] [facility] [address] [facility] [address] Assessment & Plan: MARCELO on CPAP Has [...] CABG (Coronary artery bypass graft) 09/03/2020 at [facility]. He states he initially felt [...] albuminuria creatinine ratio less than 30 mg/g ([facility]) COPD, severe ([facility]) 03/2018 Coronary artery disease FSGS (focal segmental glomerulosclerosis) Hyperlipidemia Hypertension Myocardial infarction ([facility]) NYHA class 4 heart failure with reduced ejection fraction ([facility]) LVEF 30% MARCELO on CPAP 2018 Past Surgical History: Procedure Laterality Date CABG N/A 09/03/2020 Procedure: CORONARY ARTERY BYPASS GRAFT; Surgeon: Mil Dee MD; Location: [facility]; Service: Cardiothoracic CARDIAC CATHETERIZATION N/A 08/11/2014 Procedure: Left Heart Cath Possible PTCA/Stent; Surgeon: Lenin Ramirez MD; Location: [facility] INFORMATION OPERATOR; Service: CARDIAC CATHETERIZATION Right 12/31/2014 Procedure: Left Heart Cath Possible PTCA/Stent; Surgeon: Ranulfo Cobb MD; Location: [facility] INFORMATION OPERATOR; Service: CARDIAC CATHETERIZATION 08/11/2014 EF: 55% CARDIAC CATHETERIZATION 11/06/2006 EF: 45% CARDIAC CATHETERIZATION 08/09/2005 EF: 50% CARDIAC CATHETERIZATION 07/08/2005 EF: 45% CARDIAC CATHETERIZATION 12/31/2014 EF: 55% CORONARY ANGIOPLASTY WITH STENT PLACEMENT 08/09/2005 NORM- CX, RCA CORONARY ANGIOPLASTY WITH STENT PLACEMENT 07/08/2005 NORM- RCA CORONARY STENT PLACEMENT FOOT SURGERY Right INTERVENTIONAL RADIOLOGY PROCEDURE 08/27/2020 IR THORACENTESIS LT 08/27/2020 Jesus Choudhary MD [facility] INTERVENTION RAD INTERVENTIONAL RADIOLOGY PROCEDURE 08/27/2020 IR THORACENTESIS RT 08/27/2020 Jesus Choudhary MD [facility] INTERVENTION RAD JOINT REPLACEMENT knee replacement KNEE [...] 2 (two) times a day [facility] [id number] [facility] [phone] [facility] 1016 [place] [id number] . ASCORBATE CALCIUM (VITAMIN C ORAL) Take [...] PVC noted. 30 minutes spent with patient [id number] Follow Up Ordered: Return for Appointment as [...] patient is not nervous/anxious. documented in this [id number] Instructions* Patient Instructions* Maritza Barron MA - 10/26/2020 8:00 AM EDT How to contact your Care Team: Park Hawk CNP In case of an emergency please call 911. REFILLS: When in need for refills please call your care team or the office at [phone]. Please include medication name, pharmacy name, and specify 30-day or 90-day supply. Please check with your pharmacy within 24 hours of request for your refill. You must follow up as directed to continue current refills. Thank you! documented in this [id number] History of Present illness Narrative* Mil Dee MD - 10/21/2020 8:44 AM EDT Dictation on: 10/21/2020 8:45 AM by: MIL DEE [[id number]] documented in this [id number] History of Present illness Narrative* Leonila Walls RN - 09/30/2020 9:18 AM EDT Heart Disease Management Nurse Progress Note [facility] 09/30/20 Minh Gonzalez 1945 Congestive Heart [...] 11/25/2020). Leonila Walls RN documented in this [id number] Instructions* Patient Instructions* Leonila Walls RN - 09/30/2020 8:44 AM EDT Recommendations for home daily weights with a reminder to call with weight gain > 3 pounds, increased shortness of breath, increase in swelling, getting tired faster, urinating less frquently, dizziness or lightheadedness. Call with questions or concerns documented in this [id number] History of Present illness Narrative* Pearl Noble PA-C - 09/16/2020 9:02 AM EDT Called and discussed labs and CXR with patient Instructed to follow up as soon as possible with [employer] He voiced understanding Had no complaints and stated wounds were healing nicely Was advised to call our office with any concerns documented in this [id number] Instructions* Patient Instructions* Leonila Walls RN - 08/03/2020 2:32 PM EDT Recommendations for home daily weights with a reminder to call with weight gain > 3 pounds, increased shortness of breath, increase in swelling, getting tired faster, urinating less frquently, dizziness or lightheadedness. Call with questions or concerns documented in this [id number] History of Present illness Narrative* Leonila Walls RN - 08/03/2020 2:11 PM EDT Heart Disease Management Nurse Progress Note [facility] 08/03/20 Minh Gonzalez 1945 Congestive Heart [...] file. Leonila Walls RN [facility]* Diagnosis Shortness of breath- Primary Chronic [...] heart failure (HCC) Coronary artery disease involving eklutna coronary artery of eklutna heart without angina pectoris Essential hypertension Unspecified [...] failure (HCC)- Primary Coronary artery disease involving eklutna coronary artery of eklutna heart without angina pectoris Dyspnea on exertion Other dyspnea and respiratory abnormality Generalized weakness [facility] Coronary artery disease involving eklutna coronary artery of eklutna heart without angina pectoris- Primary Chronic systolic [...] of ascending colon Coronary artery disease involving eklutna coronary artery of eklutna heart without angina pectoris S/P CABG (coronary [...] [facility]* Diagnosis Coronary artery disease involving eklutna coronary artery of eklutna heart without angina pectoris- Primary Chronic systolic [...] organism, unspecified whether acute organ dysfunction present ([facility]) [facility] Diagnosis Coronary artery disease involving eklutna coronary artery of eklutna heart without angina pectoris Chronic systolic congestive heart failure (HCC) Mixed hyperlipidemia PAF (paroxysmal atrial fibrillation) (HCC) Atrial fibrillation [facility] Diagnosis Elevated CEA- Primary Elevated carcinoembryonic antigen (CEA) Malignant neoplasm of ascending colon (HCC) Malignant neoplasm of ascending colon Cellulitis of right buttock documented in this encounter [facility] course Narrative No data available for this section [facility] Patient's home Plan of care note* Visit Details Visit Type -SN HH Routine Vi sit Discipline -Senior Care Problems Problem Start Date Status Goals Interventions Wound Care and/or Skin Problems Disciplines: Senior Care 01/20/2021 Active 1 goal linked to scheduled/documented intervention 1 goal intervention scheduled/documented in this visit Assess and Instruct Home Visit Disciplines: Senior Care 01/20/2021 Active 1 goal linked to scheduled/documented intervention 4 goal interventions scheduled/documented in this visit Medication Management Disciplines: Senior Care 01/20/2021 Active 1 goal linked to scheduled/documented intervention 1 goal intervention scheduled/documented in this visit Pain Management Disciplines: Senior Care 01/20/2021 Active 1 goal linked to scheduled/documented [...] Management [facility]al:[facility] Visit Details Visit Type -SN HH Routine Vi sit Discipline -Senior Care Problems Problem Start Date Status Goals Interventions Wound Care and/or Skin Problems Disciplines: Senior Care 01/20/2021 Active 1 goal linked to scheduled/documented intervention 1 goal intervention scheduled/documented in this visit Assess and Instruct Home Visit Disciplines: Senior Care 01/20/2021 Active 1 goal linked to scheduled/documented intervention 4 goal interventions scheduled/documented in this visit Medication Management Disciplines: Senior Care 01/20/2021 Active 1 goal linked to scheduled/documented intervention 1 goal intervention scheduled/documented in this visit Pain Management Disciplines: Senior Care 01/20/2021 Active 1 goal linked to scheduled/documented [...] of care note* Visit Details Visit Type -[facility] Star [facility] Discipline -Senior Care Problems Problem Start Date Status Goals Interventions Assess and Instruct Home Visit Disciplines: Senior Care 01/20/2021 Active 1 goal linked to scheduled/documented intervention 4 goal interventions scheduled/documented in this visit Medication Management Disciplines: Senior Care 01/20/2021 Active 1 goal linked to scheduled/documented intervention 1 goal intervention scheduled/documented in this visit Pain Management Disciplines: Senior Care 01/20/2021 Active 1 goal linked to scheduled/documented [...] of care note* Visit Details Visit Type -[facility] Star t of Care Discipline -Senior Care Problems Problem Start Date Status Goals Interventions Assess and Instruct Home Visit Disciplines: Senior Care 01/20/2021 Active 1 goal linked to scheduled/documented intervention 4 goal interventions scheduled/documented in this visit Medication Management Disciplines: Senior Care 01/20/2021 Active 1 goal linked to scheduled/documented intervention 1 goal intervention scheduled/documented in this visit Pain Management Disciplines: Senior Care 01/20/2021 Active 1 goal linked to scheduled/documented [...] Type -SN HH Routine Vi sit Discipline -Senior Care Problems Problem Start Date Status Goals Interventions Wound Care and/or Skin Problems Disciplines: Senior Care 01/20/2021 Active 1 goal linked to scheduled/documented intervention 1 goal intervention scheduled/documented in this visit Assess and Instruct Home Visit Disciplines: Senior Care 01/20/2021 Active 1 goal linked to scheduled/documented intervention 4 goal interventions scheduled/documented in this visit Medication Management Disciplines: Senior Care 01/20/2021 Active 1 goal linked to scheduled/documented intervention 1 goal intervention scheduled/documented in this visit Pain Management Disciplines: Senior Care 01/20/2021 Active 1 goal linked to scheduled/documented [...] Management Goal:Pain Completed documented in this encounter [facility] Plan of care note* Visit Details Visit Type -[facility] Routine Vi sit Discipline -Senior Care Problems Problem Start Date Status Goals Interventions Wound Care and/or Skin Problems Disciplines: Senior Care 01/20/2021 Active 1 goal linked to scheduled/documented intervention 1 goal intervention scheduled/documented in this visit Assess and Instruct Home Visit Disciplines: Senior Care 01/20/2021 Active 1 goal linked to scheduled/documented intervention 4 goal interventions scheduled/documented in this visit Medication Management Disciplines: Senior Care 01/20/2021 Active 1 goal linked to scheduled/documented intervention 1 goal intervention scheduled/documented in this visit Pain Management Disciplines: Senior Care 01/20/2021 Active 1 goal linked to scheduled/documented [...] Management Goal:Pain Completed documented in this encounter [facility] Plan of care note* Visit Details Visit Type -[facility] Routine Vi sit Discipline -Senior Care Problems Problem Start Date Status Goals Interventions Wound Care and/or Skin Problems Disciplines: Senior Care 01/20/2021 Active 1 goal linked to scheduled/documented intervention 1 goal intervention scheduled/documented in this visit Assess and Instruct Home Visit Disciplines: Senior Care 01/20/2021 Active 1 goal linked to scheduled/documented intervention 4 goal interventions scheduled/documented in this visit Medication Management Disciplines: Senior Care 01/20/2021 Active 1 goal linked to scheduled/documented intervention 1 goal intervention scheduled/documented in this visit Pain Management Disciplines: Senior Care 01/20/2021 Active 1 goal linked to scheduled/documented [...] Management Goal:Pain [facility] Visit Details Visit Type -[facility] Routine Vi sit Discipline -Senior Care Problems Problem Start Date Status Goals Interventions Wound Care and/or Skin Problems Disciplines: Senior Care 01/20/2021 Active 1 goal linked to scheduled/documented intervention 1 goal intervention scheduled/documented in this visit Assess and Instruct Home Visit Disciplines: Senior Care 01/20/2021 Active 1 goal linked to scheduled/documented intervention 4 goal interventions scheduled/documented in this visit Medication Management Disciplines: Senior Care 01/20/2021 Active 1 goal linked to scheduled/documented intervention 1 goal intervention scheduled/documented in this visit Pain Management Disciplines: Senior Care 01/20/2021 Active 1 goal linked to scheduled/documented [...] Management Goal:[facility] Visit Details Visit Type -[facility] Star t of Care Discipline -Senior Care Problems Problem Start Date Status Goals Interventions Assess and Instruct Home Visit Disciplines: Senior Care 01/20/2021 Active 1 goal linked to scheduled/documented intervention 4 goal interventions scheduled/documented in this visit Medication Management Disciplines: Senior Care 01/20/2021 Active 1 goal linked to scheduled/documented intervention 1 goal intervention scheduled/documented in this visit Pain Management Disciplines: Senior Care 01/20/2021 Active 1 goal linked to scheduled/documented [...] Management Goal:Pain [facility]uled [facility] Visit Details Visit Type -SN HH Routine Vi sit Discipline -Senior Care Problems Problem Start Date Status Goals Interventions Wound Care and/or Skin Problems Disciplines: Senior Care 01/20/2021 Active 1 goal linked to scheduled/documented intervention 1 goal intervention scheduled/documented in this visit Assess and Instruct Home Visit Disciplines: Senior Care 01/20/2021 Active 1 goal linked to scheduled/documented intervention 4 goal interventions scheduled/documented in this visit Medication Management Disciplines: Senior Care 01/20/2021 Active 1 goal linked to scheduled/documented intervention 1 goal intervention scheduled/documented in this visit Pain Management Disciplines: Senior Care 01/20/2021 Active 1 goal linked to scheduled/documented [...] Management Goal:Pain Completed documented in this encounter [facility] Plan of care note* Visit Details Visit Type -SN HH Routine Vi sit Discipline -Senior Care Problems Problem Start Date Status Goals Interventions Assess and Instruct Home Visit Disciplines: Senior Care 01/20/2021 Active 1 goal linked to scheduled/documented intervention 4 goal interventions scheduled/documented in this visit Medication Management Disciplines: Senior Care 01/20/2021 Active 1 goal linked to scheduled/documented intervention 1 goal intervention scheduled/documented in this visit Pain Management Disciplines: Senior Care 01/20/2021 Active 1 goal linked to scheduled/documented [...] Management Goal:[facility] Visit Details Visit Type -SN HH Routine Vi sit Discipline -Senior Care Problems Problem Start Date Status Goals Interventions Wound Care and/or Skin Problems Disciplines: Senior Care 01/20/2021 Active 1 goal linked to scheduled/documented intervention 1 goal intervention scheduled/documented in this visit Assess and Instruct Home Visit Disciplines: Senior Care 01/20/2021 Active 1 goal linked to scheduled/documented intervention 4 goal interventions scheduled/documented in this visit Medication Management Disciplines: Senior Care 01/20/2021 Active 1 goal linked to scheduled/documented intervention 1 goal intervention scheduled/documented in this visit Pain Management Disciplines: Senior Care 01/20/2021 Active 1 goal linked to scheduled/documented [...] Management Goal:Pain Com[facility] Visit Details Visit Type -[facility] Routine Vi sit Discipline -Senior Care Problems Problem Start Date Status Goals Interventions Wound Care and/or Skin Problems Disciplines: Senior Care 01/20/2021 Active 1 goal linked to scheduled/documented intervention 1 goal intervention scheduled/documented in this visit Assess and Instruct Home Visit Disciplines: Senior Care 01/20/2021 Active 1 goal linked to scheduled/documented intervention 4 goal interventions scheduled/documented in this visit Medication Management Disciplines: Senior Care 01/20/2021 Active 1 goal linked to scheduled/documented intervention 1 goal intervention scheduled/documented in this visit Pain Management Disciplines: Senior Care 01/20/2021 Active 1 goal linked to scheduled/documented [...] Management Goal:Pain Com[facility] Visit Details Visit Type -[facility] Routine Vi sit Discipline -Senior Care Problems Problem Start Date Status Goals Interventions Wound Care and/or Skin Problems Disciplines: Senior Care 01/20/2021 Active 1 goal linked to scheduled/documented intervention 1 goal intervention scheduled/documented in this visit Assess and Instruct Home Visit Disciplines: Senior Care 01/20/2021 Active 1 goal linked to scheduled/documented intervention 4 goal interventions scheduled/documented in this visit Medication Management Disciplines: Senior Care 01/20/2021 Active 1 goal linked to scheduled/documented intervention 1 goal intervention scheduled/documented in this visit Pain Management Disciplines: Senior Care 01/20/2021 Active 1 goal linked to scheduled/documented [...] Management Goal:Pain Com[facility] Visit Details Visit Type -SN HH Routine Vi sit Discipline -Senior Care Problems Problem Start Date Status Goals Interventions Wound Care and/or Skin Problems Disciplines: Senior Care 01/20/2021 Active 1 goal linked to scheduled/documented intervention 1 goal intervention scheduled/documented in this visit Assess and Instruct Home Visit Disciplines: Senior Care 01/20/2021 Active 1 goal linked to scheduled/documented intervention 4 goal interventions scheduled/documented in this visit Medication Management Disciplines: Senior Care 01/20/2021 Active 1 goal linked to scheduled/documented intervention 1 goal intervention scheduled/documented in this visit Pain Management Disciplines: Senior Care 01/20/2021 Active 1 goal linked to scheduled/documented [...] Type -SN HH Routine Vi sit Discipline -Senior Care Problems Problem Start Date Status Goals Interventions Wound Care and/or Skin Problems Disciplines: Senior Care 01/20/2021 Active 1 goal linked to scheduled/documented intervention 1 goal intervention scheduled/documented in this visit Assess and Instruct Home Visit Disciplines: Senior Care 01/20/2021 Active 1 goal linked to scheduled/documented intervention 4 goal interventions scheduled/documented in this visit Medication Management Disciplines: Senior Care 01/20/2021 Active 1 goal linked to scheduled/documented intervention 1 goal intervention scheduled/documented in this visit Pain Management Disciplines: Senior Care 01/20/2021 Active 1 goal linked to scheduled/documented [...] Type -SN HH Routine Vi sit Discipline -Senior Care Problems Problem Start Date Status Goals Interventions Wound Care and/or Skin Problems Disciplines: Senior Care 01/20/2021 Active 1 goal linked to scheduled/documented intervention 1 goal intervention scheduled/documented in this visit Assess and Instruct Home Visit Disciplines: Senior Care 01/20/2021 Active 1 goal linked to scheduled/documented intervention 4 goal interventions scheduled/documented in this visit Medication Management Disciplines: Senior Care 01/20/2021 Active 1 goal linked to scheduled/documented intervention 1 goal intervention scheduled/documented in this visit Pain Management Disciplines: Senior Care 01/20/2021 Active 1 goal linked to scheduled/documented [...] drains emptied per policy. L 450ml hazy mrya, R 325ml hazy yellow. Pt tolerated well. [...] Management Goal:Pain Com[facility] Visit Details Visit Type -SN HH Routine Vi sit Discipline -Senior Care Problems Problem Start Date Status Goals Interventions Assess and Instruct Home Visit Disciplines: Senior Care 01/20/2021 Active 1 goal linked to scheduled/documented intervention 4 goal interventions scheduled/documented in this visit Medication Management Disciplines: Senior Care 01/20/2021 Active 1 goal linked to scheduled/documented intervention 1 goal intervention scheduled/documented in this visit Pain Management Disciplines: Senior Care 01/20/2021 Active 1 goal linked to scheduled/documented [...] Type -SN HH OASIS Rece rt Discipline -Senior Care Problems Problem Start Date Status Goals Interventions Wound Care and/or Skin Problems Disciplines: Senior Care 01/20/2021 Active 1 goal linked to scheduled/documented intervention 1 goal intervention scheduled/documented in this visit Assess and Instruct Home Visit Disciplines: Senior Care 01/20/2021 Active 1 goal linked to scheduled/documented intervention 4 goal interventions scheduled/documented in this visit Medication Management Disciplines: Senior Care 01/20/2021 Active 1 goal linked to scheduled/documented intervention 1 goal intervention scheduled/documented in this visit Pain Management Disciplines: Senior Care 01/20/2021 Active 1 goal linked to scheduled/documented [...] Management Goal:Pain Com[facility] Visit Details Visit Type -SN Missed Visit Discipline -Senior Care Problems Problem Start Date Status Goals Interventions Assess and Instruct Home Visit Disciplines: Senior Care 01/20/2021 Active 1 goal linked to scheduled/documented intervention 4 goal interventions scheduled/documented in this visit Medication Management Disciplines: Senior Care 01/20/2021 Active 1 goal linked to scheduled/documented intervention 1 goal intervention scheduled/documented in this visit Pain Management Disciplines: Senior Care 01/20/2021 Active 1 goal linked to scheduled/documented [...] Management Goal:Pain [facility]uled [facility] Visit Details Visit Type -SN HH Routine Vi sit Discipline -Senior Care Problems Problem Start Date Status Goals Interventions Wound Care and/or Skin Problems Disciplines: Senior Care 01/20/2021 Active 1 goal linked to scheduled/documented intervention 1 goal intervention scheduled/documented in this visit Assess and Instruct Home Visit Disciplines: Senior Care 01/20/2021 Active 1 goal linked to scheduled/documented intervention 4 goal interventions scheduled/documented in this visit Medication Management Disciplines: Senior Care 01/20/2021 Active 1 goal linked to scheduled/documented intervention 1 goal intervention scheduled/documented in this visit Pain Management Disciplines: Senior Care 01/20/2021 Active 1 goal linked to scheduled/documented [...] Management Goal:Pain Com[facility] Visit Details Visit Type -SN HH OASIS Rece rt Discipline -Senior Care Problems Problem Start Date Status Goals Interventions Wound Care and/or Skin Problems Disciplines: Senior Care 01/20/2021 Active 1 goal linked to scheduled/documented intervention 1 goal intervention scheduled/documented in this visit Assess and Instruct Home Visit Disciplines: Senior Care 01/20/2021 Active 1 goal linked to scheduled/documented intervention 4 goal interventions scheduled/documented in this visit Medication Management Disciplines: Senior Care 01/20/2021 Active 1 goal linked to scheduled/documented intervention 1 goal intervention scheduled/documented in this visit Pain Management Disciplines: Senior Care 01/20/2021 Active 1 goal linked to scheduled/documented [...] Management Goal:Pain Completed [facility] Visit Details Visit Type -SN HH Routine Vi sit Discipline -Senior Care Problems Problem Start Date Status Goals Interventions Wound Care and/or Skin Problems Disciplines: Senior Care 01/20/2021 Active 1 goal linked to scheduled/documented intervention 1 goal intervention scheduled/documented in this visit Assess and Instruct Home Visit Disciplines: Senior Care 01/20/2021 Active 1 goal linked to scheduled/documented intervention 4 goal interventions scheduled/documented in this visit Medication Management Disciplines: Senior Care 01/20/2021 Active 1 goal linked to scheduled/documented intervention 1 goal intervention scheduled/documented in this visit Pain Management Disciplines: Senior Care 01/20/2021 Active 1 goal linked to scheduled/documented [...] Type -SN HH Routine Vi sit Discipline -Senior Care Problems Problem Start Date Status Goals Interventions Wound Care and/or Skin Problems Disciplines: Senior Care 01/20/2021 Active 1 goal linked to scheduled/documented intervention 1 goal intervention scheduled/documented in this visit Assess and Instruct Home Visit Disciplines: Senior Care 01/20/2021 Active 1 goal linked to scheduled/documented intervention 4 goal interventions scheduled/documented in this visit Medication Management Disciplines: Senior Care 01/20/2021 Active 1 goal linked to scheduled/documented intervention 1 goal intervention scheduled/documented in this visit Pain Management Disciplines: Senior Care 01/20/2021 Active 1 goal linked to scheduled/documented [...] Management Goal:Pain Com[facility] Visit Details Visit Type -SN Missed Visit Discipline -Senior Care Problems Problem Start Date Status Goals Interventions Assess and Instruct Home Visit Disciplines: Senior Care 01/20/2021 Active 1 goal linked to scheduled/documented intervention 4 goal interventions scheduled/documented in this visit Medication Management Disciplines: Senior Care 01/20/2021 Active 1 goal linked to scheduled/documented intervention 1 goal intervention scheduled/documented in this visit Pain Management Disciplines: Senior Care 01/20/2021 Active 1 goal linked to scheduled/documented [...] Management Goal:Pain Scheduled [facility] Visit Details Visit Type -SN HH Routine Vi sit Discipline -Senior Care Problems Problem Start Date Status Goals Interventions Wound Care and/or Skin Problems Disciplines: Senior Care 01/20/2021 Active 1 goal linked to scheduled/documented intervention 1 goal intervention scheduled/documented in this visit Assess and Instruct Home Visit Disciplines: Senior Care 01/20/2021 Active 1 goal linked to scheduled/documented intervention 4 goal interventions scheduled/documented in this visit Medication Management Disciplines: Senior Care 01/20/2021 Active 1 goal linked to scheduled/documented intervention 1 goal intervention scheduled/documented in this visit Pain Management Disciplines: Senior Care 01/20/2021 Active 1 goal linked to scheduled/documented [...] Management Goal:Pain Completed [facility] Visit Details Visit Type -SN HH Routine Vi sit Discipline -Senior Care Problems Problem Start Date Status Goals Interventions Wound Care and/or Skin Problems Disciplines: Senior Care 01/20/2021 Active 1 goal linked to scheduled/documented intervention 1 goal intervention scheduled/documented in this visit Assess and Instruct Home Visit Disciplines: Senior Care 01/20/2021 Active 1 goal linked to scheduled/documented intervention 4 goal interventions scheduled/documented in this visit Medication Management Disciplines: Senior Care 01/20/2021 Active 1 goal linked to scheduled/documented intervention 1 goal intervention scheduled/documented in this visit Pain Management Disciplines: Senior Care 01/20/2021 Active 1 goal linked to scheduled/documented [...] Management Goal:Pain Completed [facility] Visit Details Visit Type -SN HH OASIS Rece rt Discipline -Senior Care Problems Problem Start Date Status Goals Interventions Wound Care and/or Skin Problems Disciplines: Senior Care 01/20/2021 Active 1 goal linked to scheduled/documented intervention 1 goal intervention scheduled/documented in this visit Assess and Instruct Home Visit Disciplines: Senior Care 01/20/2021 Active 1 goal linked to scheduled/documented intervention 4 goal interventions scheduled/documented in this visit Medication Management Disciplines: Senior Care 01/20/2021 Active 1 goal linked to scheduled/documented intervention 1 goal intervention scheduled/documented in this visit Pain Management Disciplines: Senior Care 01/20/2021 Active 1 goal linked to scheduled/documented [...] Management Goal:Pain Com[facility] Visit Details Visit Type -SN HH OASIS Rece rt Discipline -Senior Care Problems Problem Start Date Status Goals Interventions Wound Care and/or Skin Problems Disciplines: Senior Care 01/20/2021 Active 1 goal linked to scheduled/documented intervention 1 goal intervention scheduled/documented in this visit Assess and Instruct Home Visit Disciplines: Senior Care 01/20/2021 Active 1 goal linked to scheduled/documented intervention 4 goal interventions scheduled/documented in this visit Medication Management Disciplines: Senior Care 01/20/2021 Active 1 goal linked to scheduled/documented intervention 1 goal intervention scheduled/documented in this visit Pain Management Disciplines: Senior Care 01/20/2021 Active 1 goal linked to scheduled/documented [...] Management Goal:Pain Com[facility] Visit Details Visit Type -SN HH Routine Vi sit Discipline -Senior Care Problems Problem Start Date Status Goals Interventions Wound Care and/or Skin Problems Disciplines: Senior Care 01/20/2021 Active 1 goal linked to scheduled/documented intervention 1 goal intervention scheduled/documented in this visit Assess and Instruct Home Visit Disciplines: Senior Care 01/20/2021 Active 1 goal linked to scheduled/documented intervention 4 goal interventions scheduled/documented in this visit Medication Management Disciplines: Senior Care 01/20/2021 Active 1 goal linked to scheduled/documented intervention 1 goal intervention scheduled/documented in this visit Pain Management Disciplines: Senior Care 01/20/2021 Active 1 goal linked to scheduled/documented [...] Management Goal:[facility] Visit Details Visit Type -SN HH Routine Vi sit Discipline -Senior Care Problems Problem Start Date Status Goals Interventions Wound Care and/or Skin Problems Disciplines: Senior Care 01/20/2021 Active 1 goal linked to scheduled/documented intervention 1 goal intervention scheduled/documented in this visit Assess and Instruct Home Visit Disciplines: Senior Care 01/20/2021 Active 1 goal linked to scheduled/documented intervention 4 goal interventions scheduled/documented in this visit Medication Management Disciplines: Senior Care 01/20/2021 Active 1 goal linked to scheduled/documented intervention 1 goal intervention scheduled/documented in this visit Pain Management Disciplines: Senior Care 01/20/2021 Active 1 goal linked to scheduled/documented [...] Management Goal:Pain Completed [facility] Visit Details Visit Type -SN HH Routine Vi sit Discipline -Senior Care Problems Problem Start Date Status Goals Interventions Wound Care and/or Skin Problems Disciplines: Senior Care 01/20/2021 Active 1 goal linked to scheduled/documented intervention 1 goal intervention scheduled/documented in this visit Assess and Instruct Home Visit Disciplines: Senior Care 01/20/2021 Active 1 goal linked to scheduled/documented intervention 4 goal interventions scheduled/documented in this visit Medication Management Disciplines: Senior Care 01/20/2021 Active 1 goal linked to scheduled/documented intervention 1 goal intervention scheduled/documented in this visit Pain Management Disciplines: Senior Care 01/20/2021 Active 1 goal linked to scheduled/documented [...] Management Goal:Pain Completed [facility] Visit Details Visit Type -SN HH Routine Vi sit Discipline -Senior Care Problems Problem Start Date Status Goals Interventions Wound Care and/or Skin Problems Disciplines: Senior Care 01/20/2021 Active 1 goal linked to scheduled/documented intervention 1 goal intervention scheduled/documented in this visit Assess and Instruct Home Visit Disciplines: Senior Care 01/20/2021 Active 1 goal linked to scheduled/documented intervention 4 goal interventions scheduled/documented in this visit Medication Management Disciplines: Senior Care 01/20/2021 Active 1 goal linked to scheduled/documented intervention 1 goal intervention scheduled/documented in this visit Pain Management Disciplines: Senior Care 01/20/2021 Active 1 goal linked to scheduled/documented [...] Management Goal:Pain Completed [facility] Visit Details Visit Type -SN HH Routine Vi sit Discipline -Senior Care Problems Problem Start Date Status Goals Interventions Wound Care and/or Skin Problems Disciplines: Senior Care 01/20/2021 Active 1 goal linked to scheduled/documented intervention 1 goal intervention scheduled/documented in this visit Assess and Instruct Home Visit Disciplines: Senior Care 01/20/2021 Active 1 goal linked to scheduled/documented intervention 4 goal interventions scheduled/documented in this visit Medication Management Disciplines: Senior Care 01/20/2021 Active 1 goal linked to scheduled/documented intervention 1 goal intervention scheduled/documented in this visit Pain Management Disciplines: Senior Care 01/20/2021 Active 1 goal linked to scheduled/documented [...] Management Goal:Pain Completed [facility] Visit Details Visit Type -SN HH Routine Vi sit Discipline -Senior Care Problems Problem Start Date Status Goals Interventions Wound Care and/or Skin Problems Disciplines: Senior Care 01/20/2021 Active 1 goal linked to scheduled/documented intervention 1 goal intervention scheduled/documented in this visit Assess and Instruct Home Visit Disciplines: Senior Care 01/20/2021 Active 1 goal linked to scheduled/documented intervention 4 goal interventions scheduled/documented in this visit Medication Management Disciplines: Senior Care 01/20/2021 Active 1 goal linked to scheduled/documented intervention 1 goal intervention scheduled/documented in this visit Pain Management Disciplines: Senior Care 01/20/2021 Active 1 goal linked to scheduled/documented [...] Management Goal:Pain Completed [facility] Visit Details Visit Type -SN HH Routine Vi sit Discipline -Senior Care Problems Problem Start Date Status Goals Interventions Wound Care and/or Skin Problems Disciplines: Senior Care 01/20/2021 Active 1 goal linked to scheduled/documented intervention 1 goal intervention scheduled/documented in this visit Assess and Instruct Home Visit Disciplines: Senior Care 01/20/2021 Active 1 goal linked to scheduled/documented intervention 4 goal interventions scheduled/documented in this visit Medication Management Disciplines: Senior Care 01/20/2021 Active 1 goal linked to scheduled/documented intervention 1 goal intervention scheduled/documented in this visit Pain Management Disciplines: Senior Care 01/20/2021 Active 1 goal linked to scheduled/documented [...] Management Goal:Pain Completed [facility] Visit Details Visit Type -SN HH OASIS Guerrero sfer Discipline -Senior Care Problems Problem Start Date Status Goals Interventions Assess and Instruct Home Visit Disciplines: Senior Care 01/20/2021 Active 1 goal linked to scheduled/documented intervention 4 goal interventions scheduled/documented in this visit Medication Management Disciplines: Senior Care 01/20/2021 Active 1 goal linked to scheduled/documented intervention 1 goal intervention scheduled/documented in this visit Pain Management Disciplines: Senior Care 01/20/2021 Active 1 goal linked to scheduled/documented [...] HH OASIS Resu mption of Care Discipline -Senior Care Problems Problem Start Date Status Goals Interventions Wound Care and/or Skin Problems Disciplines: Senior Care 01/20/2021 Active 1 goal linked to scheduled/documented intervention 1 goal intervention scheduled/documented in this visit Assess and Instruct Home Visit Disciplines: Senior Care 01/20/2021 Active 1 goal linked to scheduled/documented intervention 4 goal interventions scheduled/documented in this visit Medication Management Disciplines: Senior Care 01/20/2021 Active 1 goal linked to scheduled/documented intervention 1 goal intervention scheduled/documented in this visit Pain Management Disciplines: Senior Care 01/20/2021 Active 1 goal linked to scheduled/documented [...] Management Goal:Pain Completed [facility] Visit Details Visit Type -SN HH OASIS Resu mption of Care Discipline -Senior Care Problems Problem Start Date Status Goals Interventions Wound Care and/or Skin Problems Disciplines: Senior Care 01/20/2021 Active 1 goal linked to scheduled/documented intervention 1 goal intervention scheduled/documented in this visit Assess and Instruct Home Visit Disciplines: Senior Care 01/20/2021 Active 1 goal linked to scheduled/documented intervention 4 goal interventions scheduled/documented in this visit Medication Management Disciplines: Senior Care 01/20/2021 Active 1 goal linked to scheduled/documented intervention 1 goal intervention scheduled/documented in this visit Pain Management Disciplines: Senior Care 01/20/2021 Active 1 goal linked to scheduled/documented [...] Management Goal:Pain Completed [facility] Visit Details Visit Type -SN HH Routine Vi sit Discipline -Senior Care Problems Problem Start Date Status Goals Interventions Wound Care and/or Skin Problems Disciplines: Senior Care 01/20/2021 Active 1 goal linked to scheduled/documented intervention 1 goal intervention scheduled/documented in this visit Assess and Instruct Home Visit Disciplines: Senior Care 01/20/2021 Active 1 goal linked to scheduled/documented intervention 4 goal interventions scheduled/documented in this visit Medication Management Disciplines: Senior Care 01/20/2021 Active 1 goal linked to scheduled/documented intervention 1 goal intervention scheduled/documented in this visit Pain Management Disciplines: Senior Care 01/20/2021 Active 1 goal linked to scheduled/documented [...] Management Goal:Pain Completed [facility] Visit Details Visit Type -SN HH OASIS Rece rt Discipline -Senior Care Problems Problem Start Date Status Goals Interventions Assess and Instruct Home Visit Disciplines: Senior Care 01/20/2021 Active 1 goal linked to scheduled/documented intervention 4 goal interventions scheduled/documented in this visit Medication Management Disciplines: Senior Care 01/20/2021 Active 1 goal linked to scheduled/documented intervention 1 goal intervention scheduled/documented in this visit Pain Management Disciplines: Senior Care 01/20/2021 Active 1 goal linked to scheduled/documented [...] Management Goal:Pain [facility]uled [facility] Visit Details Visit Type -SN HH OASIS Rece rt Discipline -Senior Care Problems Problem Start Date Status Goals Interventions Assess and Instruct Home Visit Disciplines: Senior Care 01/20/2021 Active 1 goal linked to scheduled/documented intervention 4 goal interventions scheduled/documented in this visit Medication Management Disciplines: Senior Care 01/20/2021 Active 1 goal linked to scheduled/documented intervention 1 goal intervention scheduled/documented in this visit Pain Management Disciplines: Senior Care 01/20/2021 Active 1 goal linked to scheduled/documented [...] Management Goal:Pain Scheduled [facility] Visit Details Visit Type -SN HH OASIS Resu mption of Care Discipline -Senior Care Problems Problem Start Date Status Goals Interventions Wound Care and/or Skin Problems Disciplines: Senior Care 01/20/2021 Active 1 goal linked to scheduled/documented intervention 1 goal intervention scheduled/documented in this visit Assess and Instruct Home Visit Disciplines: Senior Care 01/20/2021 Active 1 goal linked to scheduled/documented intervention 4 goal interventions scheduled/documented in this visit Medication Management Disciplines: Senior Care 01/20/2021 Active 1 goal linked to scheduled/documented intervention 1 goal intervention scheduled/documented in this visit Pain Management Disciplines: Senior Care 01/20/2021 Active 1 goal linked to scheduled/documented [...] Management Goal:Pain Completed [facility] Visit Details Visit Type -SN HH Routine Vi sit Discipline -Senior Care Problems Problem Start Date Status Goals Interventions Wound Care and/or Skin Problems Disciplines: Senior Care 01/20/2021 Active 1 goal linked to scheduled/documented intervention 1 goal intervention scheduled/documented in this visit Assess and Instruct Home Visit Disciplines: Senior Care 01/20/2021 Active 1 goal linked to scheduled/documented intervention 4 goal interventions scheduled/documented in this visit Medication Management Disciplines: Senior Care 01/20/2021 Active 1 goal linked to scheduled/documented intervention 1 goal intervention scheduled/documented in this visit Pain Management Disciplines: Senior Care 01/20/2021 Active 1 goal linked to scheduled/documented [...] Management Goal:Pain Completed [facility] Visit Details Visit Type - HH Routine Vi sit Discipline -Senior Care Problems Problem Start Date Status Goals Interventions Wound Care and/or Skin Problems Disciplines: Senior Care 01/20/2021 Active 1 goal linked to scheduled/documented intervention 1 goal intervention scheduled/documented in this visit Assess and Instruct Home Visit Disciplines: Senior Care 01/20/2021 Active 1 goal linked to scheduled/documented intervention 4 goal interventions scheduled/documented in this visit Medication Management Disciplines: Senior Care 01/20/2021 Active 1 goal linked to scheduled/documented intervention 1 goal intervention scheduled/documented in this visit Pain Management Disciplines: Senior Care 01/20/2021 Active 1 goal linked to scheduled/documented [...] Management Goal:Pain Completed [facility] Visit Details Visit Type -SN HH Routine Vi sit Discipline -Senior Care Problems Problem Start Date Status Goals Interventions Wound Care and/or Skin Problems Disciplines: Senior Care 01/20/2021 Active 1 goal linked to scheduled/documented intervention 1 goal intervention scheduled/documented in this visit Assess and Instruct Home Visit Disciplines: Senior Care 01/20/2021 Active 1 goal linked to scheduled/documented intervention 4 goal interventions scheduled/documented in this visit Medication Management Disciplines: Senior Care 01/20/2021 Active 1 goal linked to scheduled/documented intervention 1 goal intervention scheduled/documented in this visit Pain Management Disciplines: Senior Care 01/20/2021 Active 1 goal linked to scheduled/documented [...] Management Goal:Pain Completed [facility] Visit Details Visit Type -SN HH Routine Vi sit Discipline -Senior Care Problems Problem Start Date Status Goals Interventions Assess and Instruct Home Visit Disciplines: Senior Care 01/20/2021 Active 1 goal linked to scheduled/documented intervention 4 goal interventions scheduled/documented in this visit Medication Management Disciplines: Senior Care 01/20/2021 Active 1 goal linked to scheduled/documented intervention 1 goal intervention scheduled/documented in this visit Pain Management Disciplines: Senior Care 01/20/2021 Active 1 goal linked to scheduled/documented [...] Management Goal:Pain Completed [facility] Visit Details Visit Type -SN HH Routine Vi sit Discipline -Senior Care Problems Problem Start Date Status Goals Interventions Assess and Instruct Home Visit Disciplines: Senior Care 01/20/2021 Active 1 goal linked to scheduled/documented intervention 4 goal interventions scheduled/documented in this visit Medication Management Disciplines: Senior Care 01/20/2021 Active 1 goal linked to scheduled/documented intervention 1 goal intervention scheduled/documented in this visit Pain Management Disciplines: Senior Care 01/20/2021 Active 1 goal linked to scheduled/documented [...] Management Goal:Pain Completed [facility] Visit Details Visit Type -PROP CUTTER Routine Visi t Discipline -Physical Therapy Problems [...] 95% of instruction. [facility] Visit Details Visit Type -PROP CUTTER Routine Visi t Discipline -Physical Therapy Problems [...] 95% of instruction. [facility] Visit Details Visit Type -SN HH Non-OASIS/ Discipline DC Discipline -Senior Care Problems Problem Start Date Status Goals Interventions Assess and Instruct Home Visit Disciplines: Senior Care 01/20/2021 Resolved on 09/07/2021 1 goal linked to scheduled/documented intervention 4 goal interventions scheduled/documented in this visit Medication Management Disciplines: Senior Care 01/20/2021 Resolved on 09/07/2021 1 goal linked to scheduled/documented intervention 1 goal intervention scheduled/documented in this visit Pain Management Disciplines: Senior Care 01/20/2021 Resolved on 09/07/2021 1 goal linked [...] Management Goal:Pain Scheduled [facility] Visit Details Visit Type -PROP CUTTER Routine Visi t Discipline -Physical Therapy Problems [...] 90% of instruction. [facility] Visit Details Visit Type -PROP CUTTER Routine Visi t Discipline -Physical Therapy Problems [...] 90% of instruction. documented in this encounter [facility] Plan of care note* Visit Details Visit Type -PROP CUTTER Routine Visi t Discipline -Physical Therapy Problems [...] HH OASIS Star t of Care Discipline -Senior Care Problems Problem Start Date Status Goals Interventions Assess and Instruct Home Visit Disciplines: Senior Care 05/01/2022 Active 1 goal linked to scheduled/documented intervention 4 goal interventions scheduled/documented in this visit Medication Management Disciplines: Senior Care 05/01/2022 Active 1 goal linked to scheduled/documented intervention 1 goal intervention scheduled/documented in this visit Pain Management Disciplines: Senior Care 05/01/2022 Active 1 goal linked to scheduled/documented intervention 1 goal intervention scheduled/documented in this visit Wound Care and/or Skin Problems Disciplines: Senior Care 05/01/2022 Active 1 goal linked to scheduled/documented intervention 1 goal intervention scheduled/documented in this visit Cardiac Disciplines: Senior Care 05/01/2022 Active 2 goals linked to scheduled/documented interventions 2 goal interventions scheduled/documented in this visit Gastrointestinal Disciplines: Senior Care 05/01/2022 Active 1 goal linked to scheduled/documented intervention 1 goal intervention scheduled/documented in this visit Respiratory Disciplines: Senior Care 05/01/2022 Active 1 goal linked to scheduled/documented [...] 75% of instruction. [facility] Visit [...] may be best. [facility] Visit Details Visit Type -SN HH OASIS Star t of Care Discipline -Senior Care Problems Problem Start Date Status Goals Interventions Assess and Instruct Home Visit Disciplines: Senior Care 05/01/2022 Active 1 goal linked to scheduled/documented intervention 4 goal interventions scheduled/documented in this visit Medication Management Disciplines: Senior Care 05/01/2022 Active 1 goal linked to scheduled/documented intervention 1 goal intervention scheduled/documented in this visit Pain Management Disciplines: Senior Care 05/01/2022 Active 1 goal linked to scheduled/documented intervention 1 goal intervention scheduled/documented in this visit Wound Care and/or Skin Problems Disciplines: Senior Care 05/01/2022 Active 1 goal linked to scheduled/documented intervention 1 goal intervention scheduled/documented in this visit Cardiac Disciplines: Senior Care 05/01/2022 Active 2 goals linked to scheduled/documented interventions 2 goal interventions scheduled/documented in this visit Gastrointestinal Disciplines: Senior Care 05/01/2022 Active 1 goal linked to scheduled/documented intervention 1 goal intervention scheduled/documented in this visit Respiratory Disciplines: Senior Care 05/01/2022 Active 1 goal linked to scheduled/documented [...] 75% of instruction. [facility] [...] AE to avoid bending/twisting with pt presenting director fraud and demo'ing understanding of device use. Pt [...] 90% of instruction. [facility] Visit Details Visit Type -SN HH Routine Vi sit Discipline -Senior Care Problems Problem Start Date Status Goals Interventions Assess and Instruct Home Visit Disciplines: Senior Care 05/01/2022 Active 1 goal linked to scheduled/documented intervention 4 goal interventions scheduled/documented in this visit Medication Management Disciplines: Senior Care 05/01/2022 Active 1 goal linked to scheduled/documented intervention 1 goal intervention scheduled/documented in this visit Pain Management Disciplines: Senior Care 05/01/2022 Active 1 goal linked to scheduled/documented intervention 1 goal intervention scheduled/documented in this visit Wound Care and/or Skin Problems Disciplines: Senior Care 05/01/2022 Active 1 goal linked to scheduled/documented intervention 1 goal intervention scheduled/documented in this visit Cardiac Disciplines: Senior Care 05/01/2022 Active 2 goals linked to scheduled/documented interventions 2 goal interventions scheduled/documented in this visit Gastrointestinal Disciplines: Senior Care 05/01/2022 Active 1 goal linked to scheduled/documented intervention 1 goal intervention scheduled/documented in this visit Respiratory Disciplines: Senior Care 05/01/2022 Active 1 goal linked to scheduled/documented [...] storage of oxygen. [facility] Visit [...] Care Plan Scheduled documented in [facility]* Visit Details Visit Type -SN HH OASIS Star t of Care Discipline -Senior Care Problems Problem Start Date Status Goals Interventions Assess and Instruct Home Visit Disciplines: Senior Care 05/01/2022 Active 1 goal linked to scheduled/documented intervention 4 goal interventions scheduled/documented in this visit Medication Management Disciplines: Senior Care 05/01/2022 Active 1 goal linked to scheduled/documented intervention 1 goal intervention scheduled/documented in this visit Pain Management Disciplines: Senior Care 05/01/2022 Active 1 goal linked to scheduled/documented intervention 1 goal intervention scheduled/documented in this visit Wound Care and/or Skin Problems Disciplines: Senior Care 05/01/2022 Active 1 goal linked to scheduled/documented intervention 1 goal intervention scheduled/documented in this visit Cardiac Disciplines: Senior Care 05/01/2022 Active 2 goals linked to scheduled/documented interventions 2 goal interventions scheduled/documented in this visit Gastrointestinal Disciplines: Senior Care 05/01/2022 Active 1 goal linked to scheduled/documented intervention 1 goal intervention scheduled/documented in this visit Respiratory Disciplines: Senior Care 05/01/2022 Active 1 goal linked to scheduled/documented [...] of care note* Visit Details Visit Type -PROP CUTTER Routine Visi t Discipline -Physical Therapy Problems [...] 100% of instruction. [facility] Visit Details Visit Type -SN HH Routine Vi sit Discipline -Senior Care Problems Problem Start Date Status Goals Interventions Assess and Instruct Home Visit Disciplines: Senior Care 05/01/2022 Active 1 goal linked to scheduled/documented intervention 4 goal interventions scheduled/documented in this visit Medication Management Disciplines: Senior Care 05/01/2022 Active 1 goal linked to scheduled/documented intervention 1 goal intervention scheduled/documented in this visit Pain Management Disciplines: Senior Care 05/01/2022 Active 1 goal linked to scheduled/documented intervention 1 goal intervention scheduled/documented in this visit Wound Care and/or Skin Problems Disciplines: Senior Care 05/01/2022 Active 1 goal linked to scheduled/documented intervention 1 goal intervention scheduled/documented in this visit Cardiac Disciplines: Senior Care 05/01/2022 Active 2 goals linked to scheduled/documented interventions 2 goal interventions scheduled/documented in this visit Gastrointestinal Disciplines: Senior Care 05/01/2022 Active 1 goal linked to scheduled/documented intervention 1 goal intervention scheduled/documented in this visit Respiratory Disciplines: Senior Care 05/01/2022 Active 1 goal linked to scheduled/documented intervention 1 goal intervention scheduled/documented in this visit Wound Care and/or Skin Problems Disciplines: Senior Care 05/12/2022 Active 1 goal linked to scheduled/documented [...] pt tolerated well. [facility] [facility] Visit [...] AE to avoid bending/twisting with pt presenting director fraud and demo'ing understanding of device use. Pt [...] 90% of instruction. [facility] [...] realizes that he needs to use the director fraud instead of bending over. [facility] Visit Details Visit Type -PROP CUTTER Routine Visi t Discipline -Physical Therapy Problems [...] 100% of instruction. [facility] Visit Details Visit Type -PROP CUTTER Routine Visi t Discipline -Physical Therapy Problems [...] 100% of instruction. [facility] Visit Details Visit Type -PROP CUTTER Routine Visi t Discipline -Physical Therapy Problems [...] safety precautions Skilled intervention at next visit: PROP CUTTER plan to continue transfer trianing for increased safety and reduce risk for falls. Home Exercise Program Problem:Home Exercise Program Goal:Home Exercise Program Completed Patient reports: fair compliance Clinician taught: patient Clinician instructed on: PROP CUTTER reviews standing HEP with patient. Patient demos fair recall with technique and reports fair compliance with exercise program. Patient/caregiver is able to teach back 80% of instruction. Patient with O2 donned during therex at 2L, SPO2 levels still dropped to 79% during standing therex, PROP CUTTER provides cues again for PLB techniques, fair carryover, SPO2 levels returned to 93%+ by end of session. patient left in chair with O2 donned with spouse present Instruct Mobility Problem:Mobility Goal:Mobility Completed Patient reports: no falls Clinician taught: patient Clinician instructed on: PROP CUTTER provides skilled instruct for pateint to compelte STS t/f from chair with PROP CUTTER CGA during for safety, max verbal cues for proper technique and safety awareness to avoid a fall, patient with one major LOB requiring Wendy from PROP CUTTER to prevent fall, skilled instruct for patient to complete stair training with CGA and use of grab bars, patient with poor safety awareness as noted by impulsivity, O2 tubing too short to reach garage, doffed tubing, constant cues to patient for proper breathing techniques. PROP CUTTER provides skilled instruct for patient to complete car transfer training with PROP CUTTER providing demo for maximum safety, implemented wooden step to increase safety, spouse present for traiing with both patient and spouse report understanding on use of wooden step to increase safety. patient continues to demo impulsivity with all transfers and mobility, constant cues to correct. upon return to sit in chair, SPO2 levels 68%, immediately donned O2 and PROP CUTTER instructed patient to compelte PLB techniques, cues to continue these until SPO@ levels returned to 94%, O2 on 2L for entire session. Patient/caregiver is able to teach back 80% of instruction. [facility] Visit Details Visit Type -SN HH Routine Vi sit Discipline -Senior Care Problems Problem Start Date Status Goals Interventions Assess and Instruct Home Visit Disciplines: Senior Care 05/01/2022 Active 1 goal linked to scheduled/documented intervention 4 goal interventions scheduled/documented in this visit Medication Management Disciplines: Senior Care 05/01/2022 Active 1 goal linked to scheduled/documented intervention 1 goal intervention scheduled/documented in this visit Pain Management Disciplines: Senior Care 05/01/2022 Active 1 goal linked to scheduled/documented intervention 1 goal intervention scheduled/documented in this visit Wound Care and/or Skin Problems Disciplines: Senior Care 05/01/2022 Active 1 goal linked to scheduled/documented intervention 1 goal intervention scheduled/documented in this visit Cardiac Disciplines: Senior Care 05/01/2022 Active 2 goals linked to scheduled/documented interventions 2 goal interventions scheduled/documented in this visit Gastrointestinal Disciplines: Senior Care 05/01/2022 Active 1 goal linked to scheduled/documented intervention 1 goal intervention scheduled/documented in this visit Respiratory Disciplines: Senior Care 05/01/2022 Active 1 goal linked to scheduled/documented intervention 1 goal intervention scheduled/documented in this visit Wound Care and/or Skin Problems Disciplines: Senior Care 05/12/2022 Active 1 goal linked to scheduled/documented [...] of care note* Visit Details Visit Type -PROP CUTTER Routine Visi t Discipline -Physical Therapy Problems [...] safety precautions Skilled intervention at next visit: PROP CUTTER plan to continue transfer trianing for increased safety and reduce risk for falls. Home Exercise Program Problem:Home Exercise Program Goal:Home Exercise Program Completed Patient reports: fair compliance Clinician taught: patient Clinician instructed on: PROP CUTTER reviews standing HEP with patient. Patient demos fair recall with technique and reports fair compliance with exercise program. Patient/caregiver is able to teach back 80% of instruction. Patient with O2 donned during therex at 2L, SPO2 levels still dropped to 79% during standing therex, PROP CUTTER provides cues again for PLB techniques, fair carryover, SPO2 levels returned to 93%+ by end of session. patient left in chair with O2 donned with spouse present Instruct Mobility Problem:Mobility Goal:Mobility Completed Patient reports: no falls Clinician taught: patient Clinician instructed on: PROP CUTTER provides skilled instruct for pateint to compelte STS t/f from chair with PROP CUTTER CGA during for safety, max verbal cues for proper technique and safety awareness to avoid a fall, patient with one major LOB requiring Wendy from PROP CUTTER to prevent fall, skilled instruct for patient to complete stair training with CGA and use of grab bars, patient with poor safety awareness as noted by impulsivity, O2 tubing too short to reach garage, doffed tubing, constant cues to patient for proper breathing techniques. PROP CUTTER provides skilled instruct for patient to complete car transfer training with PROP CUTTER providing demo for maximum safety, implemented wooden step to increase safety, spouse present for traiing with both patient and spouse report understanding on use of wooden step to increase safety. patient continues to demo impulsivity with all transfers and mobility, constant cues to correct. upon return to sit in chair, SPO2 levels 68%, immediately donned O2 and PROP CUTTER instructed patient to compelte PLB techniques, cues to continue these until SPO@ levels returned to 94%, O2 on 2L for entire session. Patient/caregiver is able to teach back 80% of instruction. [facility] Visit Details Visit Type -PROP CUTTER Routine Visi t Discipline -Physical Therapy Problems [...] risk of falls. [facility] Visit Details Visit Type -SN HH Routine Vi sit Discipline -Senior Care Problems Problem Start Date Status Goals Interventions Assess and Instruct Home Visit Disciplines: Senior Care 05/01/2022 Active 1 goal linked to scheduled/documented intervention 4 goal interventions scheduled/documented in this visit Medication Management Disciplines: Senior Care 05/01/2022 Active 1 goal linked to scheduled/documented intervention 1 goal intervention scheduled/documented in this visit Pain Management Disciplines: Senior Care 05/01/2022 Active 1 goal linked to scheduled/documented intervention 1 goal intervention scheduled/documented in this visit Cardiac Disciplines: Senior Care 05/01/2022 Active 2 goals linked to scheduled/documented interventions 2 goal interventions scheduled/documented in this visit Gastrointestinal Disciplines: Senior Care 05/01/2022 Active 1 goal linked to scheduled/documented intervention 1 goal intervention scheduled/documented in this visit Respiratory Disciplines: Senior Care 05/01/2022 Active 1 goal linked to scheduled/documented [...] storage of oxygen. [facility] Visit Details Visit Type -PROP CUTTER Routine Visi t Discipline -Physical Therapy Problems [...] Clinician instructed on: d/t patient back pain, PROP CUTTER provides skilled instruct for patient to complete seated HEP instead of standing HEP to reduce pain, completed to increase activity tolerance for safe return to PLOF. Patient/caregiver is able to teach back 80% of instruction. Instruct Mobility Problem:Mobility Goal:Mobility Completed Patient reports: no falls Clinician taught: patient Clinician instructed on: PROP CUTTER provides skilled instruct for patient to complete gait training with FWW and PROP CUTTER S during for safety, to increase activity tolerance, patient SPO2 levels 84% on 2L O2, cues for proper breathing techniques during seated rest break with SPO2 levels rising to 95%. Patient/caregiver is able to teach back 80% of instruction. [facility] Visit Details Visit Type -SN HH Routine Vi sit Discipline -Senior Care Problems Problem Start Date Status Goals Interventions Assess and Instruct Home Visit Disciplines: Senior Care 05/01/2022 Active 1 goal linked to scheduled/documented intervention 4 goal interventions scheduled/documented in this visit Medication Management Disciplines: Senior Care 05/01/2022 Active 1 goal linked to scheduled/documented intervention 1 goal intervention scheduled/documented in this visit Pain Management Disciplines: Senior Care 05/01/2022 Active 1 goal linked to scheduled/documented intervention 1 goal intervention scheduled/documented in this visit Cardiac Disciplines: Senior Care 05/01/2022 Active 2 goals linked to scheduled/documented interventions 2 goal interventions scheduled/documented in this visit Gastrointestinal Disciplines: Senior Care 05/01/2022 Active 1 goal linked to scheduled/documented intervention 1 goal intervention scheduled/documented in this visit Respiratory Disciplines: Senior Care 05/01/2022 Active 1 goal linked to scheduled/documented intervention 1 goal intervention scheduled/documented in this visit Wound Care and/or Skin Problems Disciplines: Senior Care 05/12/2022 Active 1 goal linked to scheduled/documented [...] barrier paste applied. [facility] Visit Details Visit Type -PROP CUTTER Routine Visi t Discipline -Physical Therapy Problems [...] Clinician instructed on: d/t patient back pain, PROP CUTTER provides skilled instruct for patient to complete seated HEP instead of standing HEP to reduce pain, completed to increase activity tolerance for safe return to PLOF. Patient/caregiver is able to teach back 80% of instruction. Instruct Mobility Problem:Mobility Goal:Mobility Completed Patient reports: no falls Clinician taught: patient Clinician instructed on: PROP CUTTER provides skilled instruct for patient to complete gait training with FWW and PROP CUTTER S during for safety, to increase activity tolerance, patient SPO2 levels 84% on 2L O2, cues for proper breathing techniques during seated rest break with SPO2 levels rising to 95%. Patient/caregiver is able to teach back 80% of instruction. [facility] Visit Details Visit Type -SN HH Routine Vi sit Discipline -Senior Care Problems Problem Start Date Status Goals Interventions Assess and Instruct Home Visit Disciplines: Senior Care 05/01/2022 Active 1 goal linked to scheduled/documented intervention 4 goal interventions scheduled/documented in this visit Medication Management Disciplines: Senior Care 05/01/2022 Active 1 goal linked to scheduled/documented intervention 1 goal intervention scheduled/documented in this visit Pain Management Disciplines: Senior Care 05/01/2022 Active 1 goal linked to scheduled/documented intervention 1 goal intervention scheduled/documented in this visit Cardiac Disciplines: Senior Care 05/01/2022 Active 2 goals linked to scheduled/documented interventions 2 goal interventions scheduled/documented in this visit Gastrointestinal Disciplines: Senior Care 05/01/2022 Active 1 goal linked to scheduled/documented intervention 1 goal intervention scheduled/documented in this visit Respiratory Disciplines: Senior Care 05/01/2022 Active 1 goal linked to scheduled/documented intervention 1 goal intervention scheduled/documented in this visit Wound Care and/or Skin Problems Disciplines: Senior Care 05/12/2022 Active 1 goal linked to scheduled/documented [...] barrier paste applied. [facility] Visit Details Visit Type -PROP CUTTER Routine Visi t Discipline -Physical Therapy Problems [...] of care note* Visit Details Visit Type -PROP CUTTER Routine Visi t Discipline -Physical Therapy Problems [...] 100% of instruction. [facility] Visit Details Visit Type -PROP CUTTER Routine Visi t Discipline -Physical Therapy Problems [...] reports: non compliance with hep and amb instructor programmable controllers taught: patient Clinician instructed on: Skilled observation [...] 100% of instruction. [facility] Visit [...] Care Plan Scheduled documented in this [facility]* Visit Details Visit Type -SN HH Routine Vi sit Discipline -Senior Care Problems Problem Start Date Status Goals Interventions Assess and Instruct Home Visit Disciplines: Senior Care 05/01/2022 Active 1 goal linked to scheduled/documented intervention 4 goal interventions scheduled/documented in this visit Medication Management Disciplines: Senior Care 05/01/2022 Active 1 goal linked to scheduled/documented intervention 1 goal intervention scheduled/documented in this visit Pain Management Disciplines: Senior Care 05/01/2022 Active 1 goal linked to scheduled/documented intervention 1 goal intervention scheduled/documented in this visit Cardiac Disciplines: Senior Care 05/01/2022 Active 2 goals linked to scheduled/documented interventions 2 goal interventions scheduled/documented in this visit Gastrointestinal Disciplines: Senior Care 05/01/2022 Active 1 goal linked to scheduled/documented intervention 1 goal intervention scheduled/documented in this visit Respiratory Disciplines: Senior Care 05/01/2022 Active 1 goal linked to scheduled/documented intervention 1 goal intervention scheduled/documented in this visit Wound Care and/or Skin Problems Disciplines: Senior Care 05/12/2022 Active 1 goal linked to scheduled/documented [...] states he understands. [facility] Visit Details Visit Type -PROP CUTTER Routine Visi t Discipline -Physical Therapy Problems [...] reports: non compliance with hep and amb instructor programmable controllers taught: patient Clinician instructed on: Skilled observation [...] 100% of instruction. documented [facility]* Visit Details Visit Type -SN HH OASIS Rece rt Discipline -Senior Care Problems Problem Start Date Status Goals Interventions Assess and Instruct Home Visit Disciplines: Senior Care 05/01/2022 Active 1 goal linked to scheduled/documented intervention 4 goal interventions scheduled/documented in this visit Medication Management Disciplines: Senior Care 05/01/2022 Active 1 goal linked to scheduled/documented intervention 1 goal intervention scheduled/documented in this visit Pain Management Disciplines: Senior Care 05/01/2022 Active 1 goal linked to scheduled/documented intervention 1 goal intervention scheduled/documented in this visit Respiratory Disciplines: Senior Care 05/01/2022 Active 1 goal linked to scheduled/documented intervention 1 goal intervention scheduled/documented in this visit Wound Care and/or Skin Problems Disciplines: Senior Care 05/12/2022 Active 1 goal linked to scheduled/documented [...] relief education reinforced. [facility] Visit Details Visit Type -SN HH OASIS Rece rt Discipline -Senior Care Problems Problem Start Date Status Goals Interventions Assess and Instruct Home Visit Disciplines: Senior Care 05/01/2022 Active 1 goal linked to scheduled/documented intervention 4 goal interventions scheduled/documented in this visit Medication Management Disciplines: Senior Care 05/01/2022 Active 1 goal linked to scheduled/documented intervention 1 goal intervention scheduled/documented in this visit Pain Management Disciplines: Senior Care 05/01/2022 Active 1 goal linked to scheduled/documented intervention 1 goal intervention scheduled/documented in this visit Respiratory Disciplines: Senior Care 05/01/2022 Active 1 goal linked to scheduled/documented intervention 1 goal intervention scheduled/documented in this visit Wound Care and/or Skin Problems Disciplines: Senior Care 05/12/2022 Active 1 goal linked to scheduled/documented [...] relief education reinforced. [facility] Visit Details Visit Type -SN HH Routine Vi sit Discipline -Senior Care Problems Problem Start Date Status Goals Interventions Assess and Instruct Home Visit Disciplines: Senior Care 05/01/2022 Active 1 goal linked to scheduled/documented intervention 4 goal interventions scheduled/documented in this visit Medication Management Disciplines: Senior Care 05/01/2022 Active 1 goal linked to scheduled/documented intervention 1 goal intervention scheduled/documented in this visit Pain Management Disciplines: Senior Care 05/01/2022 Active 1 goal linked to scheduled/documented intervention 1 goal intervention scheduled/documented in this visit Respiratory Disciplines: Senior Care 05/01/2022 Active 1 goal linked to scheduled/documented intervention 1 goal intervention scheduled/documented in this visit Wound Care and/or Skin Problems Disciplines: Senior Care 05/12/2022 Active 1 goal linked to scheduled/documented [...] Pt tolerated well. [facility] Visit Details Visit Type -SN HH Routine Vi sit Discipline -Senior Care Problems Problem Start Date Status Goals Interventions Assess and Instruct Home Visit Disciplines: Senior Care 05/01/2022 Active 1 goal linked to scheduled/documented intervention 4 goal interventions scheduled/documented in this visit Medication Management Disciplines: Senior Care 05/01/2022 Active 1 goal linked to scheduled/documented intervention 1 goal intervention scheduled/documented in this visit Pain Management Disciplines: Senior Care 05/01/2022 Active 1 goal linked to scheduled/documented intervention 1 goal intervention scheduled/documented in this visit Respiratory Disciplines: Senior Care 05/01/2022 Active 1 goal linked to scheduled/documented intervention 1 goal intervention scheduled/documented in this visit Wound Care and/or Skin Problems Disciplines: Senior Care 05/12/2022 Active 1 goal linked to scheduled/documented [...] Pt tolerated well. 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 Vi sit Discipline -Senior Care Problems Problem Start Date Status Goals Interventions Assess and Instruct Home Visit Disciplines: Senior Care 05/01/2022 Active 1 goal linked to scheduled/documented intervention 4 goal interventions scheduled/documented in this visit Medication Management Disciplines: Senior Care 05/01/2022 Active 1 goal linked to scheduled/documented intervention 1 goal intervention scheduled/documented in this visit Pain Management Disciplines: Senior Care 05/01/2022 Active 1 goal linked to scheduled/documented [...] Management Goal:Pain Scheduled [facility] Visit Details Visit Type -SN HH OASIS Rece rt Discipline -Senior Care Problems Problem Start Date Status Goals Interventions Assess and Instruct Home Visit Disciplines: Senior Care 05/01/2022 Active 1 goal linked to scheduled/documented intervention 4 goal interventions scheduled/documented in this visit Medication Management Disciplines: Senior Care 05/01/2022 Active 1 goal linked to scheduled/documented intervention 1 goal intervention scheduled/documented in this visit Pain Management Disciplines: Senior Care 05/01/2022 Active 1 goal linked to scheduled/documented intervention 1 goal intervention scheduled/documented in this visit Respiratory Disciplines: Senior Care 05/01/2022 Active 1 goal linked to scheduled/documented intervention 1 goal intervention scheduled/documented in this visit Wound Care and/or Skin Problems Disciplines: Senior Care 05/12/2022 Active 1 goal linked to scheduled/documented [...] and cleansing wound. [facility] Visit Details Visit Type -SN HH Routine Vi sit Discipline -Senior Care Problems Problem Start Date Status Goals Interventions Assess and Instruct Home Visit Disciplines: Senior Care 05/01/2022 Active 1 goal linked to scheduled/documented intervention 4 goal interventions scheduled/documented in this visit Medication Management Disciplines: Senior Care 05/01/2022 Active 1 goal linked to scheduled/documented intervention 1 goal intervention scheduled/documented in this visit Pain Management Disciplines: Senior Care 05/01/2022 Active 1 goal linked to scheduled/documented intervention 1 goal intervention scheduled/documented in this visit Respiratory Disciplines: Senior Care 05/01/2022 Active 1 goal linked to scheduled/documented intervention 1 goal intervention scheduled/documented in this visit Wound Care and/or Skin Problems Disciplines: Senior Care 05/12/2022 Active - 1 problem intervention scheduled/documented [...] health or provider. [facility] Visit Details Visit Type -SN HH OASIS Rece rt Discipline -Senior Care Problems Problem Start Date Status Goals Interventions Assess and Instruct Home Visit Disciplines: Senior Care 05/01/2022 Active 1 goal linked to scheduled/documented intervention 4 goal interventions scheduled/documented in this visit Medication Management Disciplines: Senior Care 05/01/2022 Active 1 goal linked to scheduled/documented intervention 1 goal intervention scheduled/documented in this visit Pain Management Disciplines: Senior Care 05/01/2022 Active 1 goal linked to scheduled/documented intervention 1 goal intervention scheduled/documented in this visit Respiratory Disciplines: Senior Care 05/01/2022 Active 1 goal linked to scheduled/documented intervention 1 goal intervention scheduled/documented in this visit Wound Care and/or Skin Problems Disciplines: Senior Care 05/12/2022 Active 1 goal linked to scheduled/documented [...] and cleansing wound. [facility] Visit Details Visit Type -SN HH Routine Vi sit Discipline -Senior Care Problems Problem Start Date Status Goals Interventions Assess and Instruct Home Visit Disciplines: Senior Care 05/01/2022 Active 1 goal linked to scheduled/documented intervention 4 goal interventions scheduled/documented in this visit Medication Management Disciplines: Senior Care 05/01/2022 Active 1 goal linked to scheduled/documented intervention 1 goal intervention scheduled/documented in this visit Pain Management Disciplines: Senior Care 05/01/2022 Active 1 goal linked to scheduled/documented intervention 1 goal intervention scheduled/documented in this visit Respiratory Disciplines: Senior Care 05/01/2022 Active 1 goal linked to scheduled/documented intervention 1 goal intervention scheduled/documented in this visit Wound Care and/or Skin Problems Disciplines: Senior Care 05/12/2022 Active - 1 problem intervention scheduled/documented [...] health [facility] provider. [facility] Visit Details Visit Type -SN HH Routine Vi sit Discipline -Senior Care Problems Problem Start Date Status Goals Interventions Assess and Instruct Home Visit Disciplines: Senior Care 05/01/2022 Active 1 goal linked to scheduled/documented intervention 4 goal interventions scheduled/documented in this visit Medication Management Disciplines: Senior Care 05/01/2022 Active 1 goal linked to scheduled/documented intervention 1 goal intervention scheduled/documented in this visit Pain Management Disciplines: Senior Care 05/01/2022 Active 1 goal linked to scheduled/documented intervention 1 goal intervention scheduled/documented in this visit Respiratory Disciplines: Senior Care 05/01/2022 Active 1 goal linked to scheduled/documented intervention 1 goal intervention scheduled/documented in this visit Wound Care and/or Skin Problems Disciplines: Senior Care 05/12/2022 Active - 1 problem intervention scheduled/documented [...] with wound education. [facility] Visit Details Visit Type -SN HH Routine Vi sit Discipline -Senior Care Problems Problem Start Date Status Goals Interventions Assess and Instruct Home Visit Disciplines: Senior Care 05/01/2022 Active 1 goal linked to scheduled/documented intervention 4 goal interventions scheduled/documented in this visit Medication Management Disciplines: Senior Care 05/01/2022 Active 1 goal linked to scheduled/documented intervention 1 goal intervention scheduled/documented in this visit Pain Management Disciplines: Senior Care 05/01/2022 Active 1 goal linked to scheduled/documented intervention 1 goal intervention scheduled/documented in this visit Respiratory Disciplines: Senior Care 05/01/2022 Active 1 goal linked to scheduled/documented intervention 1 goal intervention scheduled/documented in this visit Wound Care and/or Skin Problems Disciplines: Senior Care 05/12/2022 Active - 1 problem intervention scheduled/documented [...] with wound education. [facility] Visit Details Visit Type -SN HH Routine Vi sit Discipline -Senior Care Problems Problem Start Date Status Goals Interventions Assess and Instruct Home Visit Disciplines: Senior Care 05/01/2022 Active 1 goal linked to scheduled/documented intervention 4 goal interventions scheduled/documented in this visit Medication Management Disciplines: Senior Care 05/01/2022 Active 1 goal linked to scheduled/documented intervention 1 goal intervention scheduled/documented in this visit Pain Management Disciplines: Senior Care 05/01/2022 Active 1 goal linked to scheduled/documented intervention 1 goal intervention scheduled/documented in this visit Respiratory Disciplines: Senior Care 05/01/2022 Active 1 goal linked to scheduled/documented intervention 1 goal intervention scheduled/documented in this visit Wound Care and/or Skin Problems Disciplines: Senior Care 05/12/2022 Active - 1 problem intervention scheduled/documented [...] with wound education. [facility] Visit Details Visit Type -SN HH Routine Vi sit Discipline -Senior Care Problems Problem Start Date Status Goals Interventions Assess and Instruct Home Visit Disciplines: Senior Care 05/01/2022 Active 1 goal linked to scheduled/documented intervention 4 goal interventions scheduled/documented in this visit Medication Management Disciplines: Senior Care 05/01/2022 Active 1 goal linked to scheduled/documented intervention 1 goal intervention scheduled/documented in this visit Pain Management Disciplines: Senior Care 05/01/2022 Active 1 goal linked to scheduled/documented intervention 1 goal intervention scheduled/documented in this visit Respiratory Disciplines: Senior Care 05/01/2022 Active 1 goal linked to scheduled/documented intervention 1 goal intervention scheduled/documented in this visit Wound Care and/or Skin Problems Disciplines: Senior Care 05/12/2022 Active - 1 problem intervention scheduled/documented [...] with wound education. [facility] Visit Details Visit Type -SN HH Routine Vi sit Discipline -Senior Care Problems Problem Start Date Status Goals Interventions Assess and Instruct Home Visit Disciplines: Senior Care 05/01/2022 Active 1 goal linked to scheduled/documented intervention 4 goal interventions scheduled/documented in this visit Medication Management Disciplines: Senior Care 05/01/2022 Active 1 goal linked to scheduled/documented intervention 1 goal intervention scheduled/documented in this visit Pain Management Disciplines: Senior Care 05/01/2022 Active 1 goal linked to scheduled/documented intervention 1 goal intervention scheduled/documented in this visit Respiratory Disciplines: Senior Care 05/01/2022 Active 1 goal linked to scheduled/documented intervention 1 goal intervention scheduled/documented in this visit Wound Care and/or Skin Problems Disciplines: Senior Care 05/12/2022 Active - 1 problem intervention scheduled/documented [...] with wound education. [facility] Visit Details Visit Type -SN HH OASIS Rece rt Discipline -Senior Care Problems Problem Start Date Status Goals Interventions Assess and Instruct Home Visit Disciplines: Senior Care 05/01/2022 Active 1 goal linked to scheduled/documented intervention 4 goal interventions scheduled/documented in this visit Medication Management Disciplines: Senior Care 05/01/2022 Active 1 goal linked to scheduled/documented intervention 1 goal intervention scheduled/documented in this visit Pain Management Disciplines: Senior Care 05/01/2022 Active 1 goal linked to scheduled/documented intervention 1 goal intervention scheduled/documented in this visit Respiratory Disciplines: Senior Care 05/01/2022 Active 1 goal linked to scheduled/documented intervention 1 goal intervention scheduled/documented in this visit Wound Care and/or Skin Problems Disciplines: Senior Care 05/12/2022 Active - 1 problem intervention scheduled/documented [...] with wound education. [facility] Visit Details Visit Type -SN HH OASIS Rece rt Discipline -Senior Care Problems Problem Start Date Status Goals Interventions Assess and Instruct Home Visit Disciplines: Senior Care 05/01/2022 Active 1 goal linked to scheduled/documented intervention 4 goal interventions scheduled/documented in this visit Medication Management Disciplines: Senior Care 05/01/2022 Active 1 goal linked to scheduled/documented intervention 1 goal intervention scheduled/documented in this visit Pain Management Disciplines: Senior Care 05/01/2022 Active 1 goal linked to scheduled/documented intervention 1 goal intervention scheduled/documented in this visit Respiratory Disciplines: Senior Care 05/01/2022 Active 1 goal linked to scheduled/documented intervention 1 goal intervention scheduled/documented in this visit Wound Care and/or Skin Problems Disciplines: Senior Care 05/12/2022 Active - 1 problem intervention scheduled/documented [...] with wound education. [facility] Visit Details Visit Type -SN HH OASIS Rece rt Discipline -Senior Care Problems Problem Start Date Status Goals Interventions Assess and Instruct Home Visit Disciplines: Senior Care 05/01/2022 Active 1 goal linked to scheduled/documented intervention 4 goal interventions scheduled/documented in this visit Medication Management Disciplines: Senior Care 05/01/2022 Active 1 goal linked to scheduled/documented intervention 1 goal intervention scheduled/documented in this visit Pain Management Disciplines: Senior Care 05/01/2022 Active 1 goal linked to scheduled/documented intervention 1 goal intervention scheduled/documented in this visit Respiratory Disciplines: Senior Care 05/01/2022 Active 1 goal linked to scheduled/documented intervention 1 goal intervention scheduled/documented in this visit Wound Care and/or Skin Problems Disciplines: Senior Care 05/12/2022 Active - 1 problem intervention scheduled/documented [...] with wound education. [facility] Visit Details Visit Type -SN HH Routine Vi sit Discipline -Senior Care Problems Problem Start Date Status Goals Interventions Assess and Instruct Home Visit Disciplines: Senior Care 05/01/2022 Active 1 goal linked to scheduled/documented intervention 4 goal interventions scheduled/documented in this visit Medication Management Disciplines: Senior Care 05/01/2022 Active 1 goal linked to scheduled/documented intervention 1 goal intervention scheduled/documented in this visit Pain Management Disciplines: Senior Care 05/01/2022 Active 1 goal linked to scheduled/documented intervention 1 goal intervention scheduled/documented in this visit Respiratory Disciplines: Senior Care 05/01/2022 Active 1 goal linked to scheduled/documented intervention 1 goal intervention scheduled/documented in this visit Wound Care and/or Skin Problems Disciplines: Senior Care 05/12/2022 Active - 1 problem intervention scheduled/documented [...] with wound education. 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 Routine Discipline -Senior Care Problems Problem Start Date Status Goals Interventions Assess and Instruct Home Visit Disciplines: Senior Care 05/01/2022 Active 1 goal linked to scheduled/documented intervention 4 goal interventions scheduled/documented in this visit Medication Management Disciplines: Senior Care 05/01/2022 Active 1 goal linked to scheduled/documented intervention 1 goal intervention scheduled/documented in this visit Pain Management Disciplines: Senior Care 05/01/2022 Active 1 goal linked to scheduled/documented intervention 1 goal intervention scheduled/documented in this visit Wound Care and/or Skin Problems Disciplines: Senior Care 05/12/2022 Active - 1 problem intervention scheduled/documented [...] of care note* Visit Details Visit Type -[facility] OASIS Guerrero sfer Discipline -Senior Care Problems Problem Start Date Status Goals Interventions Assess and Instruct Home Visit Disciplines: Senior Care 05/01/2022 Active 1 goal linked to scheduled/documented intervention 4 goal interventions scheduled/documented in this visit Medication Management Disciplines: Senior Care 05/01/2022 Active 1 goal linked to scheduled/documented intervention 1 goal intervention scheduled/documented in this visit Pain Management Disciplines: Senior Care 05/01/2022 Active 1 goal linked to scheduled/documented intervention 1 goal intervention scheduled/documented in this visit Wound Care and/or Skin Problems Disciplines: Senior Care 05/12/2022 Active - 1 problem intervention scheduled/documented [...] of care note* Visit Details Visit Type -[facility] OASIS Resu mption of Care Discipline -Senior Care Problems Problem Start Date Status Goals Interventions Assess and Instruct Home Visit Disciplines: Senior Care 05/01/2022 Active 1 goal linked to scheduled/documented intervention 4 goal interventions scheduled/documented in this visit Medication Management Disciplines: Senior Care 05/01/2022 Active 1 goal linked to scheduled/documented intervention 1 goal intervention scheduled/documented in this visit Pain Management Disciplines: Senior Care 05/01/2022 Active 1 goal linked to scheduled/documented intervention 1 goal intervention scheduled/documented in this visit Respiratory Disciplines: Senior Care 05/01/2022 Active 1 goal linked to scheduled/documented intervention 1 goal intervention scheduled/documented in this visit Wound Care and/or Skin Problems Disciplines: Senior Care 05/12/2022 Active - 1 problem intervention scheduled/documented [...] with wound education. [facility] Visit Details Visit Type -SN HH OASIS Resu mption of Care Discipline -Senior Care Problems Problem Start Date Status Goals Interventions Assess and Instruct Home Visit Disciplines: Senior Care 05/01/2022 Active 1 goal linked to scheduled/documented intervention 4 goal interventions scheduled/documented in this visit Medication Management Disciplines: Senior Care 05/01/2022 Active 1 goal linked to scheduled/documented intervention 1 goal intervention scheduled/documented in this visit Pain Management Disciplines: Senior Care 05/01/2022 Active 1 goal linked to scheduled/documented intervention 1 goal intervention scheduled/documented in this visit Respiratory Disciplines: Senior Care 05/01/2022 Active 1 goal linked to scheduled/documented intervention 1 goal intervention scheduled/documented in this visit Wound Care and/or Skin Problems Disciplines: Senior Care 05/12/2022 Active - 1 problem intervention scheduled/documented [...] with wound education. [facility] Visit Details Visit Type -SN HH Routine Vi sit Discipline -Senior Care Problems Problem Start Date Status Goals Interventions Assess and Instruct Home Visit Disciplines: Senior Care 05/01/2022 Active 1 goal linked to scheduled/documented intervention 4 goal interventions scheduled/documented in this visit Medication Management Disciplines: Senior Care 05/01/2022 Active 1 goal linked to scheduled/documented intervention 1 goal intervention scheduled/documented in this visit Pain Management Disciplines: Senior Care 05/01/2022 Active 1 goal linked to scheduled/documented intervention 1 goal intervention scheduled/documented in this visit Respiratory Disciplines: Senior Care 05/01/2022 Active 1 goal linked to scheduled/documented intervention 1 goal intervention scheduled/documented in this visit Wound Care and/or Skin Problems Disciplines: Senior Care 05/12/2022 Active 1 goal linked to scheduled/documented [...] with wound education. [facility] Visit Details Visit Type -SN HH OASIS Disc harge Discipline -Senior Care Problems Problem Start Date Status Goals Interventions Assess and Instruct Home Visit Disciplines: Senior Care 05/01/2022 Resolved on 12/22/2022 1 goal linked to scheduled/documented intervention 4 goal interventions scheduled/documented in this visit Medication Management Disciplines: Senior Care 05/01/2022 Resolved on 12/22/2022 1 goal linked to scheduled/documented intervention 1 goal intervention scheduled/documented in this visit Pain Management Disciplines: Senior Care 05/01/2022 Resolved on 12/22/2022 1 goal linked to scheduled/documented intervention 1 goal intervention scheduled/documented in this visit Wound Care and/or Skin Problems Disciplines: Senior Care 05/12/2022 Resolved on 12/22/2022 - 1 problem [...] he will see the patient in the [facility] wed and confirms patient will need to be drained by [facility] wed sometime [facility] Actions left side area of concern be low insertion site picture taaken and uploaded into [employer]. message sent to Niurka BALTAZAR with dr [...] - 10 pleure x drains/dressing kits order #[id number] [facility] Actions L pleurex drain - 350ml ambe r hazy R pleurex drain - 450ml yellow hazy [facility] Actions Supplies ordered - 10 pleure x drains/dressing kits order #[id number] [facility] [...] supplies ordered - 10 kits - confirmation #[id number] [facility] Actions KHOI pleurex drain catheters drained without issue.Pt tolerated well. 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 As of now, it is planned that he runs 3x/day, M, W, F. [facility] Actions #[id number] - order number 10 pleurex drains [facility] Actions 10 pleurex drain kits ordere d - Confirmation #[id number] L drain - 350ml clear yellow noted [...] his coccyx area. [facility] Actions A picture of the pt's wound was take, and then wound care was performed. After the pt had donned his clothes and sat down, the picture was showed to him. While transfering the phone back, the [employer] catracho was accidently closed. This caused the [...] home care services. documented in this encounter [facility] for visit Narrative* Auth/Cert Specialty Diagnoses / Procedures Referred By Alisson t Referred To Contact Diagnoses Pleural effusion Bilateral pleural effusion Pleural effusion [J90] Bilateral pleural effusion [J90] Procedures NV INSERTION INDWELLING TUNNELED PLEURAL CATHETER RIGHT PLEUR X CATHETER PLACEMENT Referral ID Status Reason Start Date Expiration Date Visits Re quested Visits Author[facility] [id number] [facility] Auth/Cert Specialty Diagnoses / Procedures Referred By Contac t Referred To Contact Referral ID Status Reason Start Date Expiration Date Visits Re quested Visits Authorized [id number] [facility] Auth/Cert Specialty Diagnoses / Procedures Referred By Contac t Referred To Contact Referral ID Status Reason Start Date Expiration Date Visits Re quested Visits Authorized [id number] 1 1 [facility]* Auth/Cert Specialty Diagnoses / Procedures Referred By Contac t Referred To Contact Referral ID Status Reason Start Date Expiration Date Visits Re quested Visits Authorized [id number] 1 1 [facility] Auth/Cert Specialty Diagnoses / Procedures Referred By Contac t Referred To Contact Diagnoses Malignant neoplasm of ascending colon (HCC) Malignant neoplasm of ascending colon (HCC) [C18.2] Procedures NV COLECTOMY PRTL W/RMVL TERMINAL ILEUM & ILEOCOLOS Sherry George, DO [address] [place] [address] Referral ID Status Reason Start Date Expiration Date Visits Re quested Visits Authorized [id number] 04/11/2022 1 1 [facility] Assessments Diagnosis Coronary artery disease invo lving ekl[place] coronary artery of [place] heart without angina pectoris - Primary Essential hypertension Unspecified essential hypertension Diagnosis Essential hypertension- Primary Unspecified essential hypertension Coronary artery disease involving [place] coronary artery of [place] heart without angina pectoris Dyspnea on exertion Other dyspnea and respiratory abnormality Ventricular tachycardia (paroxysmal) (HCC) Paroxysmal ventricular tachycardia Mixed hyperlipidemia Diagnosis Coronary artery disease involving [place] coronary artery of [place] heart without angina pectoris Essential hypertension Unspecified essential hypertension Ventricular tachycardia (paroxysmal) (HCC) Paroxysmal ventricular tachycardia Diagnosis Coronary artery disease involving [place] coronary artery of [place] heart without angina pectoris- Primary Mixed hyperlipidemia Chronic combined systolic and diastolic congestive heart failure (HCC) Essential hypertension Unspecified essential hypertension Diagnosis ELLIOTT (dyspnea on exertion) Other dyspnea and respiratory abnormality Diagnosis Therapeutic drug monitoring- Primary Encounter for therapeutic drug monitoring ELLIOTT (dyspnea on exertion) Other dyspnea and respiratory abnormality Essential hypertension Unspecified essential hypertension Coronary artery disease involving [place] coronary artery of [place] heart without angina pectoris MARCELO on CPAP [...] failure (HCC) Diagnosis Coronary artery disease involving [place] coronary artery of [place] heart without angina pectoris Chronic systolic congestive heart failure (HCC) Mixed hyperlipidemia Essential hypertension Unspecified essential hypertension Diagnosis Therapeutic drug monitoring Encounter for therapeutic drug monitoring Chronic systolic congestive heart failure (HCC) Diagnosis Therapeutic drug monitoring Encounter for therapeutic drug monitoring Chronic systolic heart failure (HCC) Chronic systolic heart failure Diagnosis Coronary artery disease involving [place] coronary artery of [place] heart without angina pectoris Diagnosis Chronic systolic congestive heart failure (HCC) Diagnosis medication management- Primary Encounter for therapeutic drug monitoring Chronic systolic congestive heart failure (HCC) Diagnosis Therapeutic drug monitoring- Primary Encounter for therapeutic drug monitoring Chronic systolic heart failure (HCC) Chronic systolic heart failure Diagnosis MARCELO on CPAP Essential hypertension Unspecified essential hypertension Coronary artery disease involving [place] coronary artery of [place] heart without angina pectoris Chronic systolic congestive heart failure (HCC) Diagnosis Therapeutic drug monitoring- Primary Encounter for therapeutic drug monitoring Chronic systolic congestive heart failure (HCC) Diagnosis Coronary artery disease involving [place] coronary artery of [place] heart without angina pectoris- Primary Mixed hyperlipidemia Chronic systolic congestive heart failure (HCC) Essential hypertension Unspecified essential hypertension 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) Reason for Referral Status Reason Specialty Diagnoses / Procedures Referred By Contact Referred To Contact Authorized Cardiology Diagnoses Coronary artery disease involving e[place] coronary artery of [place] heart without angina pectoris Essential hypertension Ventricular tachycardia (paroxysmal) (HCC) Procedures Echocardiogram complete Lenin Ramirez MD [address] [facility] [address] [place] [address] Status Reason Specialty Diagnoses / Procedures Referred By Contact Referred To Contact Authorized Cardiology Diagnoses Coronary artery disease involving e[place] coronary artery of [place] heart without angina pectoris Procedures ECG 12 lead Lenin Ramirez MD [address] [place] [address] Status Reason Specialty Diagnoses / Procedures Referre d By Contact Referred To Contact Closed Cardiology Diagnoses Coronary artery disease involving [place] coronary artery of [place] heart without angina pectoris Essential hypertension Ventricular tachycardia (paroxysmal) (HCC) Procedures Echocardiogram complete Lenin Ramirez MD [address] [facility] [address] [place] [address] Status Reason Specialty Diagnoses / Procedures Referre d By Contact Referred To Contact Closed Radiology Diagnoses ELLIOTT (dyspnea on exertion) Procedures NM Myocardial Perfusion Multiple SPECT Lenin Ramirez MD [address] [facility] [address] [place] [address] Status Reason Specialty Diagnoses / Procedures Referred By Contact Referred To Contact Pending Review Cardiology Diagnoses ELLIOTT (dyspnea on exertion) Procedures Echocardiogram complete [place] Hawk, LINER CHECKER [address] [facility] [address] [place], [place] [id number] Status Reason Specialty Diagnoses / Procedures Referred By Contact Referred To Contact Authorized Diagnoses Therapeutic drug monitoring Park Hawk, IGOR [address] [facility] Timmy [address] [place], [place] [id number] [facility] [address] [place] [address] Status Reason Specialty Diagnoses / Procedures Referre d By Contact Referred To Contact Closed Cardiology Diagnoses ELLIOTT (dyspnea on exertion) Procedures Echocardiogram complete Park Hawk CNP [address] [phone] Specialty Diagnoses / Procedures Referred By Contac t Referred To Contact Cardiology Diagnoses PAF (paroxysmal atrial fibrillation) (HCC) Procedures ECG 12 lead Park Hawk CNP [address] [phone] Referral ID Status Reason Start Date Expiration Date V isits Requested Visits Authorized [id number] Pending Review 10/26/2020 10/26/2021 1 1 Referral ID Status Reason Start Date Expiration Date V isits Requested Visits Authorized [id number] Authorized 10/26/2020 10/26/2021 1 1 Specialty Diagnoses / Procedures Referred By Contac t Referred To Contact Radiology Diagnoses Pleural effusion Procedures CT Guided Thoracentesis Park Hawk CNP [address] [place] [address] Referral ID Status Reason Start Date Expiration Date V isits Requested Visits Authorized [id number] New Request 10/26/2020 10/26/2021 1 1 Specialty Diagnoses / Procedures Referred By Contac t Referred To Contact Cardiology Diagnoses S/P CABG (coronary artery bypass graft) PAF (paroxysmal atrial fibrillation) (HCC) Chronic systolic congestive heart failure (HCC) Coronary artery disease involving eklutna coronary artery of eklutna heart without angina pectoris Essential hypertension Procedures Echocardiogram complete Lenin Ramirez MD [address] [address] Referral ID Status Reason Start Date Expiration Date V isits Requested Visits Authorized [id number] Pending Review 01/17/2021 01/17/2022 1 1 Specialty Diagnoses / Procedures Referred By Contac t Referred To Contact Radiology Diagnoses Pleural effusion Procedures CT Chest Without Contrast Jalil Sparks MD [address] [facility] [address] [place] [address] Referral ID Status Reason Start Date Expiration Date V isits Requested Visits Authorized [id number] Authorized 01/12/2021 01/12/2022 1 1 Specialty Diagnoses / Procedures Referred By Contac t Referred To Contact Cardiology Diagnoses PAF (paroxysmal atrial fibrillation) (HCC) Procedures ECG 12 Lead Lenin Ramirez MD [address] [facility] [address] [phone] Referral ID Status Reason Start Date Expiration Date V isits Requested Visits Authorized [id number] Pending Review 06/09/2021 06/09/2022 4 4 Specialty Diagnoses / Procedures Referred By Contac t Referred To Contact Home Health Services Diagnoses Sepsis, due to unspecified organism, unspecified whether acute organ dysfunction present (HCC) Other pneumonia, unspecified organism Jalil Sparks MD [address] [place] [address] [address] [place] [address] [address] Referral ID Status Reason Start Date Expiration Date V isits Requested Visits Authorized [id number] Authorized 07/05/2021 07/05/2022 1 1 Specialty Diagnoses / Procedures Referred By Contac t Referred To Contact Home Health Services Diagnoses Chronic systolic congestive heart failure (HCC) Coronary artery disease involving eklutna coronary artery of eklutna heart without angina pectoris Dyspnea on exertion Generalized weakness Lenin Ramirez MD [address] [address] Referral ID Status Reason Start Date Expiration Date Visits Requested Visits Authorized [id number] Authorized Specialty Services Required/Pat reinaldont's Best Interest 08/17/2021 08/17/2022 1 1 Specialty Diagnoses / Procedures Referred By Contac t Referred To Contact Cardiology Diagnoses Coronary artery disease involving eklutna coronary artery of eklutna heart without angina pectoris Chronic systolic congestive heart failure (HCC) Procedures Echocardiogram limited Lenin Ramirez MD [address] [facility] [address] [place] [address] Referral ID Status Reason Start Date Expiration Date V isits Requested Visits Authorized [id number] New Request 11/17/2021 11/17/2022 1 1 Specialty Diagnoses / Procedures Referred By Contac t Referred To Contact General Surgery Diagnoses Adenocarcinoma (HCC) System, Provider Not In Sherry George DO [address] [address] Referral ID Status Reason Start Date Expiration Date V isits Requested Visits Authorized [id number] Authorized 03/23/2022 03/23/2023 1 1 Referral ID Status Reason Start Date Expiration Date V isits Requested Visits Authorized [id number] Pending Review 08/26/2022 08/26/2023 10 10 Specialty Diagnoses / Procedures Referred By Contac t Referred To Contact Radiology Diagnoses Elevated CEA Malignant neoplasm of ascending colon (HCC) Procedures CT Chest Abdomen Pelvis With Contrast Sherry George DO [address] [address] Referral ID Status Reason Start Date Expiration Date V isits Requested Visits Authorized [id number] Pending Review 11/28/2022 11/28/2023 1 1 Specialty Diagnoses / Procedures Referred By Contac t Referred To Contact Home Health Services Diagnoses Malignant neoplasm of ascending colon (HCC) PAF (paroxysmal atrial fibrillation) (HCC) ESRD on dialysis (HCC) Cellulitis of other specified site Cellulitis of perineum Zack Olmos MD [address] [place] [address] [address] Referral ID Status Reason Start Date Expiration Date V isits Requested Visits Authorized [id number] Authorized 11/29/2022 11/29/2023 1 1 Referral ID Status Reason Start Date Expiration Date V isits Requested Visits Authorized [id number] New Request 03/08/2023 03/07/2024 1 1 History [...] effusions and is scheduled to see a lemon picker next week. He deniesany fever or chills, [...] left IVCD. Assessment/Plan: Coronary artery disease involving eklutna coronary artery of eklutna heart without angina pectoris As ischemic status [...] concerning. He is scheduled to see a lemon picker next week to have this evaluated further. [...] reasonably well following his recent hospitalization in [place] for fluid overload. He was diuresed nearly 10 pounds with a marked improvement in his edema and a mild improvement in his exertional dyspnea. He did have a visit with the lemon picker and is scheduled to undergo testing within [...] daily . Assessment/Plan: Coronary artery disease involving eklutna coronary artery of eklutna heart without angina pectoris Ed continues doing [...] not nervous/anxious. in this encounter* Park Hawk, LINER CHECKER - 07/26/2018 10:44 AM EDT [facility] [address] [facility] [address] [facility] [phone] Assessment & Plan: Essential hypertension B/P above goal 152/78, 163/72. Monitors B/P at home almost daily and states has noticed a trend in increasing B/P. Current medications include: Lopressor 25 mg daily, Exforge 5-320 mg daily. Will plan on making medication adjustments relative to decreased EF and continue to monitor B/P closely. Coronary artery disease involving eklutna coronary artery of eklutna heart without angina pectoris Long-standing CAD with Hx ME in 2005 Cath 2015: Discrete 40% proximal [...] pillow. I suggested that he contact the [employer] company to discuss other device options to improve his comfort and compliance. CHF (congestive heart failure) (HCC) Hospitalized at [facility] earlier this year with successful diuresis. Known CKD, stage 3 and follows with Nephrology, Dr. Christiansen, in [place]. Recent stress testing revealed substantial decline in EF. Ed states he does have ELLIOTT, now with moderate exertion, it has improved from the ELLIOTT he was experiencing with minimal exertion. Ed continues to have bilateral lower leg edema which improves overnight and increases as his day goes on. He is wearing compression stockings daily. 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 Will follow up with [employer] patient assistance program. Orders Placed This Encounter [...] year with an acute HF episode at [facility]. After diuresis the symptoms of ELLIOTT with mild exertion improved. He continues to have ELLIOTT with moderate exertion and bilateral lower leg edema persists. He denies chest pain/pressure, orthopnea, PND, palpitations, lightheadedness, syncope or near-syncopal episodes. Histories: Past Medical History: Diagnosis Date Abnormal stress test Arthritis Chest pain CHF (congestive heart failure) ([facility]) Chronic kidney disease COPD (chronic obstructive pulmonary disease) ([facility]) 03/2018 Coronary artery disease Hyperlipidemia Hypertension Myocardial infarction ([facility]) MARCELO on CPAP 2018 SOB (shortness of breath) Past Surgical History: Procedure Laterality Date CARDIAC CATHETERIZATION N/A 08/11/2014 Procedure: Left Heart Cath Possible PTCA/Stent; Surgeon: Lenin Ramirez MD; Location: [facility]PER[facility]; Service: CARDIAC CATHETERIZATION Right 12/31/2014 Procedure: Left Heart Cath Possible PTCA/Stent; Surgeon: Ranulfo Cobb MD; Location: [facility]PERATOR; Service: CARDIAC CATHETERIZATION 08/11/2014 EF: 55% CARDIAC [...] in about 3 weeks (around 08/16/2018) for ICE SKATING INSTRUCTOR visit. Park Hawk CNP * Maritza Barron [...] EDT Heart Disease Management Nurse Progress Note [facility] 08/03/18 Minh Gonzalez 1945 Congestive Heart [...] EDT Heart Disease Management Nurse Progress Note [facility] 08/10/18 Minh Limtristen 1945 Congestive Heart [...] EDT Heart Disease Management Nurse Progress Note [facility] 08/31/18 Minh Gonzalez 1945 Congestive Heart [...] EDT Heart Disease Management Nurse Progress Note [facility] 09/21/18 Minh Gonzalez 1945 Congestive Heart [...] Slight limitation of physical activity. Lab Drawn: [facility] today Assessment & Plan Minh was [...] EDT Heart Disease Management Nurse Progress Note [facility] 10/12/18 Minh Gonzalez 1945 Congestive Heart [...] EDT Pre Auth has been approved by [facility] for Entresto 49 mg/51 mg. Pharmacy notified (Ligia Tillman) documented in this encounter* Leonila Walls RN - 11/09/2018 10:34 AM EDT Heart Disease Management Nurse Progress Note [facility] 11/09/18 Minh Askewrich 1945 Congestive Heart [...] EDT Heart Disease Management Nurse Progress Note [facility] 12/31/18 Minh Gonzalez 1945 Congestive Heart [...] Slight limitation of physical activity. Lab Drawn: [facility] today Assessment & Plan Minh was [...] productive cough but will be seeing his Biomedical Field Service Engineer next week. Diagnoses and all orders for [...] day . Assessment/Plan: Coronary artery disease involving eklutna coronary artery of eklutna heart without angina pectoris He continues doing [...] EST Heart Disease Management Nurse Progress Note [facility] 03/25/19 Minh Gonzalez 1945 Congestive Heart [...] EDT Heart Disease Management Nurse Progress Note [facility] 05/24/19 Minh Askewrich 1945 Congestive Heart [...] EDT Heart Disease Management Nurse Progress Note [facility] 07/31/19 Minh Limtristen 1945 Congestive Heart [...] EDT Heart Disease Management Nurse Progress Note [facility] 09/09/19 Minh Gonzalez 1945 Congestive Heart [...] 10/01/2019 9:05 AM EDT Application faxed to [employer] Patient assistance. FAX: [phone] documented in this encounter* Leonila Walls RN - 11/04/2019 12:10 PM EDT Heart Disease Management Nurse Progress Note [facility] 11/04/19 Minh Askewrich 1945 Congestive Heart Failure (HFC visit) Minh Gonzaelz is a 74 y.o. year-old male seen [...] EDT Heart Disease Management Nurse Progress Note [facility] 12/23/19 Minh Gonzalez 1945 Congestive Heart [...] EST Heart Disease Management Nurse Progress Note [facility] 02/17/20 Minh Limtristen 1945 Congestive Heart [...] Lasix for him. He is following a Cattle Killer in [place] who was happy with his numbers last week. Ed said he will see his Biomedical Field Service Engineer next week. BP stable at home. His [...] EST Heart Disease Management Nurse Progress Note [facility] 01/28/19 Minh Gonzalez 1945 Congestive Heart Failure [...] productive cough in the morning but his Biomedical Field Service Engineer does not want to start any inhalers [...] 11:57 AM EDT [address] [address] [facility] [address] [facility] [phone] Assessment & Plan: MARCELO on CPAP Using [...] quite bothersome diarrhea. Coronary artery disease involving eklutna coronary artery of eklutna heart without angina pectoris Long-standing CAD with [...] breathing difficulty. 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 able [...] Arthritis Chest pain CHF (congestive heart failure) ([facility]) Chronic kidney disease COPD (chronic obstructive pulmonary disease) ([facility]) 03/2018 Coronary artery disease Hyperlipidemia Hypertension Myocardial infarction ([facility]) MARCELO on CPAP 2018 SOB (shortness of breath) Past Surgical History: Procedure Laterality Date CARDIAC CATHETERIZATION N/A 08/11/2014 Procedure: Left Heart Cath Possible PTCA/Stent; Surgeon: Lenin Ramirez MD; Location: [facility]; Service: CARDIAC CATHETERIZATION Right 12/31/2014 Procedure: Left Heart Cath Possible PTCA/Stent; Surgeon: Ranulfo Cobb MD; Location: [facility]; Service: CARDIAC CATHETERIZATION 08/11/2014 EF: 55% CARDIAC [...] EST Heart Disease Management Nurse Progress Note [facility] 04/20/20 Minh Askewrich 1945 Congestive Heart [...] EDT Heart Disease Management Nurse Progress Note [facility] 11/30/18 Minh Corbin Lisa 1945 Congestive [...] some increase in edema, states he had [place] last night. Ed states he has no [...] AM EST Telephone Visit Via Phone Call [facility] [address] [facility] [address] [facility] [address] Telephone Visit [facility] 03/26/2020 Lenin Ramirez MD Provider Location: [place] Patient Location Heavy Equipment Rental Associate: None Patient Location: Patient's Home Patient: Minh [...] there are inherent diagnostic limitations compared to [id number] evaluations. We elected toproceed with the telephone [...] were made today. Coronary artery disease involving eklutna coronary artery of eklutna heart without angina pectoris - Primary He has no angina no other symptoms suggestive of progressive ischemic disease. Relevant Medications rosuvastatin (Crestor) 10 MG tablet carvediloL (COREG) 25 MG tablet CHF (congestive heart failure) ([facility]) I am extremely pleased with how well [...] EDT Heart Disease Management Nurse Progress Note [facility] 06/19/20 Minh Gonzalez 1945 Congestive Heart [...] Will continue to monitor kidneys through his Cattle Killer. Diagnoses and all orders for this visit: [...] Documents on File Type Date Recorded Patient Warp Preparer Expl anation Advance Directives and Livin g Will Advance Directives and Livin g Will 05/04/2018 12:00 AM Documents on File Type Date Recorded Patient Warp Preparer Expl anation Advance Directives and Livin g Will Advance Directives and Livin g Will 05/04/2018 12:00 AM Documents on File Type Date Recorded Patient Warp Preparer Expl anation Advance Directives and Livin g [...] Documents on File Type Date Recorded Patient Warp Preparer Expl anation Advance Directives and Livin g [...] Documents on File Type Date Recorded Patient Warp Preparer Expl anation Advance Directives and Livin g Will Advance Directives and Livin g Will 10/26/2020 9:39 AM Documents on File Type Date Recorded Patient Warp Preparer Expl anation Advance Directives and Livin g Will Advance Directives and Livin g Will 11/23/2020 2:00 PM Documents on File Type Date Recorded Patient Warp Preparer Expl anation Advance Directives and Livin g Will Advance Directives and Livin g Will 11/23/2020 2:00 PM Documents on File Type Date Recorded Patient Warp Preparer Expl anation Advance Directives and Livin g Will Advance Directives and Livin g Will 01/13/2021 2:47 PM Documents on File Type Date Recorded Patient Warp Preparer Expl anation Advance Directives and Livin g Will Advance Directives and Livin g Will 01/13/2021 2:47 PM Documents on File Type Date Recorded Patient Warp Preparer Expl anation Advance Directives and Livin g [...] Documents on File Type Date Recorded Patient Warp Preparer Expl anation Advance Directives and Livin g Will Advance Directives and Livin g Will 01/18/2021 2:47 PM Latest Code Status on File Code Status Date Activated Date Inactivated Comments Full Code 01/18/2021 9:08 AM 01/19/2021 5:39 PM Full Code 09/04/2020 1:22 PM 09/10/2020 1:54 PM Documents on File Type Date Recorded Patient Warp Preparer Expl anation Advance Directives and Livin g Will Advance Directives and Livin g Will 02/03/2021 2:47 PM Documents on File Type Date Recorded Patient Warp Preparer Expl anation Advance Directives and Livin g Will Advance Directives and Livin g Will 02/03/2021 2:47 PM Documents on File Type Date Recorded Patient Warp Preparer Expl anation Advance Directives and Living Will Advance Directives and Living Will 02/22/2021 2:47 PM NO COPY IN SOARIAN Documents on File Type Date Recorded Patient Warp Preparer Expl anation Advance Directives and Living Will [...] Documents on File Type Date Recorded Patient Warp Preparer Expl anation Power of Financial Administrative Assistant Latest Code Status on File Code Status [...] Documents on File Type Date Recorded Patient Warp Preparer Expl anation Power of Financial Administrative Assistant Latest Code Status on File Code Status [...] Closed Cardiology Diagnoses Coronary artery disease involving eklutna coronary artery of eklutna heart without angina pectoris Essential hypertension Ventricular tachycardia (paroxysmal) (HCC) Procedures Echocardiogram complete Lenin Ramirez MD [address] [facility] [address] [place] [address] Reason Comments Follow-up s/p d/c [facility]. new ons et CHF Medication Management pt is to start Exf orge 5/320 mg tablet. 1 tablet PO QD Status Reason Specialty Diagnoses / Procedures Referre d By Contact Referred To Contact Closed Radiology Diagnoses ELLIOTT (dyspnea on exertion) Procedures NM Myocardial Perfusion Multiple SPECT Lenin Ramirez MD [address] [facility] [address] [place] [address] Reason Comments Follow-up abn SPECT. Hypertension pt [...] on exertion) Procedures Echocardiogram complete Park Hawk, IGOR [address] [facility] [address] [phone] Reason Comments Follow-up 6 mo f/u. no [...] Surgery Diagnoses Bilateral pleural effusion Park Hawk, LINER CHECKER [address] [place] [address] Michael Quinn MD [address] [facility] [address] [place] [address] Referral ID Status Reason Start Date Expiration Date V isits Requested Visits Authorized [id number] Closed Specialty Services Required/Khalida ent's Best Interest [...] System, Provider Not In Sherry George, [place] [facility] [place] [address] Referral ID Status Reason Start Date Expiration Date Visits Re quested Visits Authorized [id number] Closed 03/23/2022 03/23/2023 1 1 Reason Comments Fatigue Specialty Diagnoses / Procedures Referred By Alisson t Referred To Contact Referral ID Status Reason Start Date Expiration Date Visits Re quested Visits Authorized [id number] 1 1 Reason Comments Medication Refill Reason Comments Follow-up Regular follow up. R aly meds with list pt brought Reason Onset Date [...] concerning. He is scheduled to see a lemon picker next week to have this evaluated further. [...] today. Associated Problem(s): Coronary artery disease involving eklutna coronary artery of eklutna heart without angina pectoris As ischemic status [...] weeks. Associated Problem(s): Coronary artery disease involving eklutna coronary artery of eklutna heart without angina pectoris Ed continues doing well from an ischemic standpoint with no angina no EKG evidence of disease progression. I made no changes in his regimen today. in this encounter Associated Problem(s): CHF (congestive heart failure) (HCC) Hospitalized at [facility] earlier this year with successful diuresis. Known CKD, stage 3 and follows with Nephrology, Dr. Christiansen, in [place]. Recent stress testing revealed substantial decline in EF. Ed states he does have ELLIOTT, now with moderate exertion, it has improved from the ELLIOTT he was experiencing with minimal exertion. Ed continues to have bilateral lower leg edema which improves overnight and increases as his day goes on. He is wearing compression stockings daily. 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 Will follow up with [employer] patient assistance program. Associated Problem(s): MARCELO on CPAP Currently using CPAP. States is struggling to adjust to the device. Is using a nasal pillow. I suggested that he contact the [employer] company to discuss other device options to improve his comfort and compliance. Associated Problem(s): Coronary artery disease involving eklutna coronary artery of eklutna heart without angina pectoris Long-standing CAD with Hx ME in 2005 Cath 2015: Discrete 40% proximal [...] home. Associated Problem(s): CHF (congestive heart failure) (HCC) His most recent echocardiogram demonstrated stable left ventricular systolic function with ejection fraction in the range of 40 to 45%. Given his elevated blood pressure I did increase his Entresto to 97-103 mg twice daily but made no other changes in his medicines. Associated Problem(s): Coronary artery disease involving eklutna coronary artery of eklutna heart without angina pectoris He continues doing [...] encounter Associated Problem(s): CHF (congestive heart failure) ([facility]) Ed's stress test in July 2018 showed [...] breathing difficulty. 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 Associated Problem(s): Coronary artery disease involving eklutna coronary artery of eklutna heart without angina pectoris Long-standing CAD with [...] basis. Associated Problem(s): Coronary artery disease involving eklutna coronary artery of eklutna heart without angina pectoris He has no [...] regimen today. documented in this encounter Muna Ozuna, RN - 07/20/2018 9:42 AM EDT Nursing [...] DATE CREATED AUTHOR AUTHOR'S ORGANIZ ATION 06/07/2019 [employer] DATE CREATED AUTHOR AUTHOR'S ORGANIZ ATION 10/04/2019 [facility] DATE CREATED AUTHOR AUTHOR'S ORGANIZ ATION 08/07/2020 [facility] DATE CREATED AUTHOR AUTHOR'S ORGANIZ ATION 05/08/2021 [facility] DATE CREATED AUTHOR AUTHOR'S ORGANIZ ATION 05/23/2021 [facility] DATE CREATED AUTHOR AUTHOR'S ORGANIZ ATION 08/06/2021 [facility] DATE CREATED AUTHOR AUTHOR'S ORGANIZ ATION 11/24/2021 [facility] DATE CREATED AUTHOR AUTHOR'S ORGANIZ ATION 05/01/2022 [facility] DATE CREATED AUTHOR AUTHOR'S ORGANIZ ATION 12/01/2022 [facility] DATE CREATED AUTHOR AUTHOR'S ORGANIZ ATION 12/04/2022 [facility] [facility] DATE CREATED AUTHOR AUTHOR'S ORGANIZ ATION 03/23/2023 [facility] DATE CREATED AUTHOR AUTHOR'S ORGANIZ ATION 03/26/2023 [facility] Care Teams (unrecognized sec tion and content) Acupressurist Relationship Specialty Start Date End Date Zack Olmos MD [address] [place] [address] [phone] PCP - General Family Medicine 08/11/14 Acupressurist Relationship Specialty Start Date End Date Zack Olmos MD [address] [place] [address] 74513 PCP - General Family Medicine 08/11/14 Acupressurist Relationship Specialty Start Date End Date Zack Olmos MD [address] [place] [address] 66014 PCP - General Family Medicine 08/11/14 Acupressurist Relationship Specialty Start Date End Date Zack Olmos MD [address] [place] [address] 37364 PCP - General Family Medicine 08/11/14 Acupressurist Relationship Specialty Start Date End Date Zack Olmos MD [address] [place] [address] [id number] PCP - General Family Medicine 08/11/14 Acupressurist Relationship Specialty Start Date End Date Zack Olmos MD [address] [place] [address] 78186 PCP - General Family Medicine 08/11/14 Acupressurist Relationship Specialty Start Date End Date Zack Olmos MD [address] [place] [address] 99284 PCP - General Family Medicine 08/11/14 Acupressurist Relationship Specialty Start Date End Date Zack Olmos MD [address] [place] [address] 87985 PCP - General Family Medicine 08/11/14 Acupressurist Relationship Specialty Start Date End Date Zack Olmos MD [address] [place] [address] 64037 PCP - General Family Medicine 08/11/14 Acupressurist Relationship Specialty Start Date End Date Zack Olmos MD [address] [place] [address] 76714 PCP - General Family Medicine 08/11/14 Acupressurist Relationship Specialty Start Date End Date Zack Olmos MD [address] [place] [address] 56110 PCP - General Family Medicine 08/11/14 Acupressurist Relationship Specialty Start Date End Date Zack Olmos MD [address] [place] [address] 92107 PCP - General Family Medicine 08/11/14 Acupressurist Relationship Specialty Start Date End Date Zack Olmos MD [address] [place] [address] 18509 PCP - General Family Medicine 08/11/14 Acupressurist Relationship Specialty Start Date End Date Zack Olmos MD [address] [place] [address] 61650 PCP - General Family Medicine 08/11/14 Acupressurist Relationship Specialty Start Date End Date Zack Olmos MD [address] [place] [address] 36971 PCP - General Family Medicine 08/11/14 Acupressurist Relationship Specialty Start Date End Date Zack Olmos MD [address] [place] [address] 97261 PCP - General Family Medicine 08/11/14 Acupressurist Relationship Specialty Start Date End Date Zack Olmos MD [address] [place] [address] 34484 PCP - General Family Medicine 08/11/14 Acupressurist Relationship Specialty Start Date End Date Zack Olmos MD [address] [place] [address] 54875 PCP - General Family Medicine 08/11/14 Acupressurist Relationship Specialty Start Date End Date Zack Olmos MD [address] [place] [address] 66664 PCP - General Family Medicine 08/11/14 Acupressurist Relationship Specialty Start Date End Date Zack Olmos MD [address] [place] [address] 45975 PCP - General Family Medicine 08/11/14 Acupressurist Relationship Specialty Start Date End Date Zack Olmos MD [address] [place] [address] 88653 PCP - General Family Medicine 08/11/14 Acupressurist Relationship Specialty Start Date End Date Zack Olmos MD [address] [place] [address] 13392 PCP - General Family Medicine 08/11/14 Acupressurist Relationship Specialty Start Date End Date Zack Olmos MD [address] [place] [address] 55061 PCP - General Family Medicine 08/11/14 Acupressurist Relationship Specialty Start Date End Date Zack Olmos MD [address] [place] [address] 19416 PCP - General Family Medicine 08/11/14 Acupressurist Relationship Specialty Start Date End Date Zack Olmos MD [address] [place] [address] 00546 PCP - General Family Medicine 08/11/14 Acupressurist Relationship Specialty Start Date End Date Zack Olmos MD [address] [place] [address] 06619 PCP - General Family Medicine 08/11/14 Acupressurist Relationship Specialty Start Date End Date Zack Olmos MD [address] [place] [address] 99250 PCP - General Family Medicine 08/11/14 Acupressurist Relationship Specialty Start Date End Date Zack Olmos MD [address] [place] [address] 88389 PCP - General Family Medicine 08/11/14 Acupressurist Relationship Specialty Start Date End Date Zack Olmos MD [address] [place] [address] 02775 PCP - General Family Medicine 08/11/14 Acupressurist Relationship Specialty Start Date End Date Zack Olmos MD [address] [place] [address] 95815 PCP - General Family Medicine 08/11/14 Acupressurist Relationship Specialty Start Date End Date Zack Olmos MD [address] [place] [address] [phone] PCP - General Family Medicine 08/11/14 Acupressurist Relationship Specialty Start Date End Date Zack Olmos MD [address] [place] [address] 96018 PCP - General Family Medicine 08/11/14 Андрей Pizano MD [facility] [employer] Fvebz751 [place] [address] Referring Physician General Surgery 03/22/22 Acupressurist Relationship Specialty Start Date End Date Zack Olmos MD [address] [place] [address] 48943 PCP - General Family Medicine 08/11/14 Lenin Ramirez MD [address] [facility] [address] [place] [address] Consulting Physician Interventional Cardiology 04/06/22 Sherry George, DO [address] [place] [address] Consulting Physician General Surgery 04/06/22 Андрей Pizano MD [address] [facility] [employer] Ukbov302 [place] [address] Referring Physician General Surgery 03/22/22 Acupressurist Relationship Specialty Start Date End Date Zack Olmos MD [address] [place] [address] PCP - General Family Medicine 08/11/14 Lenin Ramirez MD [address] [place] [address] Consulting Physician Interventional Cardiology 04/06/22 Sherry George, DO [address] [place] [address] Consulting Physician General Surgery 04/06/22 Андрей Pizano MD [address] [facility] [employer] Vejdz616 [place] [address] Referring Physician General Surgery 03/22/22 Acupressurist Relationship Specialty Start Date End Date Zack Olmos MD [address] [place] [address] PCP - General Family Medicine 08/11/14 Lenin Ramirez MD [address] [facility] [address] [place] [address] Consulting Physician Interventional Cardiology 04/06/22 Sherry George DO [address] [place] [address] Consulting Physician General Surgery 04/06/22 Андрей Pizano MD [address] [facility] [employer] Tkwwi247 [place] [address] Referring Physician General Surgery 03/22/22 Acupressurist Relationship Specialty Start Date End Date Zack Olmos MD [address] [place] [address] PCP - General Family Medicine 08/11/14 Lenin Ramirez MD [address] [place] [address] Consulting Physician Interventional Cardiology 04/06/22 Sherry George DO [address] [place] [address] Consulting Physician General Surgery 04/06/22 Андрей Pizano MD [address] [facility] [employer] [id number] [place] [address] Referring Physician General Surgery 03/22/22 Acupressurist Relationship Specialty Start Date End Date Zack Olmos MD [address] [place] [address] PCP - General Family Medicine 08/11/14 Lenin Ramirez MD [address] [facility] [address] [place] [address] Consulting Physician Interventional Cardiology 04/06/22 Sherry George DO [address] [place] [address] Consulting Physician General Surgery 04/06/22 Андрей Pizano MD [facility] [employer] Aisyb124 [place] [address] Referring Physician General Surgery 03/22/22 Acupressurist Relationship Specialty Start Date End Date Zack Olmos MD [address] [place], [place] 317234 PCP - General Family Medicine 08/11/14 Lenin Ramirez MD [address] [facility] [address] [place] [address] Consulting Physician Interventional Cardiology 04/06/22 Sherry George DO [address] [place] [address] Consulting Physician General Surgery 04/06/22 Андрей Pizano MD [address] [facility] [employer] Umyli676 [place] [address] Referring Physician General Surgery 03/22/22 Acupressurist Relationship Specialty Start Date End Date Zack Olmos MD [address] [place] [address] PCP - General Family Medicine 08/11/14 Lenin Ramirez MD [address] [facility] [address] [place] [address] Consulting Physician Interventional Cardiology 04/06/22 Sherry George DO [address] [place] [address] Consulting Physician General Surgery 04/06/22 Андрей Pizano MD [address] [facility] [employer] [id number] [place] [address] Referring Physician General Surgery 03/22/22 Acupressurist Relationship Specialty Start Date End Date Zack Olmos MD [address] [place] [address] PCP - General Family Medicine 08/11/14 Lenin Ramirez MD [address] [facility] [address] [place] [address] Consulting Physician Interventional Cardiology 04/06/22 Sherry George DO [address] [place] [address] Consulting Physician General Surgery 04/06/22 Андрей Pizano MD [address] [facility] [employer] Hjjok619 [place] [address] Referring Physician General Surgery 03/22/22 Acupressurist Relationship Specialty Start Date End Date Zack Olmos MD [address] [place] [address] PCP - General Family Medicine 08/11/14 Lenin Ramirez MD [address] [place] [address] Consulting Physician Interventional Cardiology 04/06/22 Sherry George DO [address] [place] [address] Consulting Physician General Surgery 04/06/22 Андрей Pizano MD [facility] [employer] Sdptq943 [place] [address] Referring Physician General Surgery 03/22/22 Acupressurist Relationship Specialty Start Date End Date Zack Olmos MD [address] [place] [address] PCP - General Family Medicine 08/11/14 Lenin Ramirez MD [address] [place] [address] Consulting Physician Interventional Cardiology 04/06/22 Sherry George DO [address] [place] [address] Consulting Physician General Surgery 04/06/22 Андрей Pizano MD [address] [facility] [employer] Yagtf236 [place] [address] Referring Physician General Surgery 03/22/22 Acupressurist Relationship Specialty Start Date End Date Zack Olmos MD [address] [place] [address] PCP - General Family Medicine 08/11/14 Lenin Ramirez MD [address] [place] [address] Consulting Physician Interventional Cardiology 04/06/22 Sherry George DO [address] [place] [address] Consulting Physician General Surgery 04/06/22 Андрей Pizano MD [address] [facility] [employer] Iobuj130 [place] [address] Referring Physician General Surgery 03/22/22 Acupressurist Relationship Specialty Start Date End Date Zack Olmos MD [address] [place] [address] PCP - General Family Medicine 08/11/14 Lenin Ramirez MD [address] [place] [address] Consulting Physician Interventional Cardiology 04/06/22 Sherry George DO [address] [place] [address] Consulting Physician General Surgery 04/06/22 Андрей Pizano MD [address] [facility] [employer] Lvlxj505 [place] [address] Referring Physician General Surgery 03/22/22 Acupressurist Relationship Specialty Start Date End Date Zack Olmos MD [address] [place] [address] PCP - General Family Medicine 08/11/14 Lenin Ramirez MD [address] [place] [address] Consulting Physician Interventional Cardiology 04/06/22 Sherry George DO [address] [place] [address] Consulting Physician General Surgery 04/06/22 Андрей Pizano MD [address] [facility] [employer] Ftlow805 [place] [address] Referring Physician General Surgery 03/22/22 Acupressurist Relationship Specialty Start Date End Date Zack Olmos MD [address] [place] [address] PCP - General Family Medicine 08/11/14 Lenin Ramirez MD [address] [place] [address] Consulting Physician Interventional Cardiology 04/06/22 Sherry George DO [address] [place] [address] Consulting Physician General Surgery 04/06/22 Андрей Pizano MD [address] [facility] [employer] Szpmp074 [place] [address] Referring Physician General Surgery 03/22/22 Acupressurist Relationship Specialty Start Date End Date Zack Olmos MD [address] [place] [address] PCP - General Family Medicine 08/11/14 Lenin Ramirez MD [address] [place] [address] Consulting Physician Interventional Cardiology 04/06/22 Sherry George DO [address] [place] [address] Consulting Physician General Surgery 04/06/22 Андрей Pizano MD [address] [facility] [employer] Egmqp281 [place] [address] Referring Physician General Surgery 03/22/22 Acupressurist Relationship Specialty Start Date End Date Zack Olmos MD [address] [place] [address] PCP - General Family Medicine 08/11/14 Lenin Ramirez MD [address] [place] [address] Consulting Physician Interventional Cardiology 04/06/22 Sherry George DO [address] [place] [address] Consulting Physician General Surgery 04/06/22 Андрей Pizano MD [address] [facility] [employer] [id number] [place] [address] Referring Physician General Surgery 03/22/22 Acupressurist Relationship Specialty Start Date End Date Zack Olmos MD [address] [place] [address] PCP - General Family Medicine 08/11/14 Lenin Ramirez MD [address] [place] [address] Consulting Physician Interventional Cardiology 04/06/22 Sherry George DO [address] [place] [address] Consulting Physician General Surgery 04/06/22 Андрей Pizano MD [address] [facility] [employer] [id number] [place] [address] Referring Physician General Surgery 03/22/22 Acupressurist Relationship Specialty Start Date End Date Zack Olmos MD [address] [place] [address] PCP - General Family Medicine 08/11/14 Lenin Ramirez MD [address] [place] [address] Consulting Physician Interventional Cardiology 04/06/22 Sherry George DO [address] [place] [address] Consulting Physician General Surgery 04/06/22 Андрей Pizano MD [facility] [employer] Oxbbc543 [place] [address] Referring Physician General Surgery 03/22/22 Acupressurist Relationship Specialty Start Date End Date Zack Olmos MD [address] [place] [address] PCP - General Family Medicine 08/11/14 Lenin Ramirez MD [address] [place] [address] Consulting Physician Interventional Cardiology 04/06/22 Sherry George DO [address] [place] [address] Consulting Physician General Surgery 04/06/22 Андрей Pizano MD [facility] [employer] Dpsmt301 [place] [address] Referring Physician General Surgery 03/22/22 Acupressurist Relationship Specialty Start Date End Date Zack Olmos MD [address] [place] [address] PCP - General Family Medicine 08/11/14 Lenin Ramirez MD [address] [place] [address] Consulting Physician Interventional Cardiology 04/06/22 Sherry George DO [address] [place] [address] Consulting Physician General Surgery 04/06/22 Андрей Pizano MD [address] [facility] [employer] [address]axj[address] [place] [address] 384[address] Referring Physician General Surgery 03/22/22 Acupressurist Relationship Specialty Start Date End Date Zack Olmos MD [address] [place] [address] PCP - General Family Medicine 08/11/14 Lenin Ramirez MD [address] [facility] [address] [place] [address] Consulting Physician Interventional Cardiology 04/06/22 Sherry George DO [address] [place] [address] Consulting Physician General Surgery 04/06/22 Андрей iPzano MD [address] [facility] [employer] [id number] [place] [address] 32580 Referring Physician General Surgery 03/22/22 Acupressurist Relationship Specialty Start Date End Date Zack Olmos MD [address] [place], [place] [id number] PCP - General Family Medicine 08/11/14 Lenin Ramirez MD [address] [facility] [address] [place] [address] Consulting Physician Interventional Cardiology 04/06/22 Sherry George DO [address] [place] [address] Consulting Physician General Surgery 04/06/22 Андрей Pizano MD [address] [facility] [employer] Obttp680 [place] [address] Referring Physician General Surgery 03/22/22 Acupressurist Relationship Specialty Start Date End Date Zack Olmos MD [address] [place] [address] PCP - General Family Medicine 08/11/14 Lenin Ramirez MD [address] [facility] [address] [place] [address] Consulting Physician Interventional Cardiology 04/06/22 Sherry George DO [address] [place] [address] Consulting Physician General Surgery 04/06/22 Андрей Pizano MD [address] [facility] [employer] Icupn[address] [place] [address] 72429 Referring Physician General Surgery 03/22/22 Acupressurist Relationship Specialty Start Date End Date Zack Olmos MD [address] [place] [address] 64825 PCP - General Family Medicine 08/11/14 Lenin Ramirez MD [address] [facility] [address] [place] [address] Consulting Physician Interventional Cardiology 04/06/22 Sherry George DO [address] [place] [address] Consulting Physician General Surgery 04/06/22 Андрей Pizano MD [address] [facility] [employer] Tbwlc[address] [place] [address] 29688 Referring Physician General Surgery 03/22/22 Acupressurist Relationship Specialty Start Date End Date Zack Olmos MD [address] [place] [address] PCP - General Family Medicine 08/11/14 Lenin Ramirez MD [address] [facility] [address] [place] [address] Consulting Physician Interventional Cardiology 04/06/22 Sherry George DO [address] [place] [address] Consulting Physician General Surgery 04/06/22 Андрей Pizano MD [address] [facility] [employer] Wzhld[address] [place] [address] 12659 Referring Physician General Surgery 03/22/22 Acupressurist Relationship Specialty Start Date End Date Zack Olmos MD [address] [place], [place] [id number] PCP - General Family Medicine 08/11/14 Lenin Ramirez MD [address] [facility] [address] [place] [address] Consulting Physician Interventional Cardiology 04/06/22 Sherry George DO [address] [place] [address] Consulting Physician General Surgery 04/06/22 Андрей Pizano MD [address] [facility] [employer] Txf[address] [place] [address] 39353 Referring Physician General Surgery 03/22/22 Acupressurist Relationship Specialty Start Date End Date Zack Olmos MD [address] [place] [address] PCP - General Family Medicine 08/11/14 Lenin Ramirez MD [address] [place] [address] Consulting Physician Interventional Cardiology 04/06/22 Sherry George DO [address] [place] [address] Consulting Physician General Surgery 04/06/22 Андрей Pizano MD [address] [facility] [employer] [address]ks[address] [place] [address] Referring Physician General Surgery 03/22/22 Acupressurist Relationship Specialty Start Date End Date Zack Olmos MD [address] [place], [place] [id number] PCP - General Family Medicine 08/11/14 Lenin Ramirez MD [address] [place] [address] Consulting Physician Interventional Cardiology 04/06/22 Sherry George DO [address] [place] [address] Consulting Physician General Surgery 04/06/22 Андрей Pizano MD [address] [facility] [employer] Figkp038 [place] [address] Referring Physician General Surgery 03/22/22 Acupressurist Relationship Specialty Start Date End Date Zack Olmos MD [address] [place] [address] 34927 PCP - General Family Medicine 08/11/14 Lenin Ramirez MD [address] [place] [address] Consulting Physician Interventional Cardiology 04/06/22 Sherry George DO [address] [place] [address] Consulting Physician General Surgery 04/06/22 Андрей Pizano MD [address] [facility] [employer] Hqerh[address] [place] [address] 62125 Referring Physician General Surgery 03/22/22 Acupressurist Relationship Specialty Start Date End Date Zack Olmos MD [address] [place] [address] 06814 PCP - General Family Medicine 08/11/14 Lenin Ramirez MD [address] [facility] [address] [place] [address] Consulting Physician Interventional Cardiology 04/06/22 Sherry George DO [address] [place] [address] Consulting Physician General Surgery 04/06/22 Андрей Pizano MD [address] [facility] [employer] Dlfps508 [place] [address] Referring Physician General Surgery 03/22/22 Acupressurist Relationship Specialty Start Date End Date Zack Olmos MD [address] [place] [address] 71844 PCP - General Family Medicine 08/11/14 Lenin Ramirez MD [address] [facility] [address] [place] [address] Consulting Physician Interventional Cardiology 04/06/22 Sherry George DO [address] [place] [address] Consulting Physician General Surgery 04/06/22 Андрей Pizano MD [facility] [employer] [address]qtbd[address] [place] [address] 89430 Referring Physician General Surgery 03/22/22 Acupressurist Relationship Specialty Start Date End Date Zack Olmos MD [address] [place] [address] 06517 PCP - General Family Medicine 08/11/14 Lenin Ramirez MD [address] [place] [address] [address] [place] [address] Consulting Physician Interventional Cardiology 04/06/22 Sherry George DO [address] [place] [address] Consulting Physician General Surgery 04/06/22 Андрей Pizano MD [address] [facility] [employer] Nylej890 [place] [address] Referring Physician General Surgery 03/22/22 Acupressurist Relationship Specialty Start Date End Date Zack Olmos MD [address] [place], [place] [id number] PCP - General Family Medicine 08/11/14 Lenin Ramirez MD [address] [facility] [address] [place] [address] Consulting Physician Interventional Cardiology 04/06/22 Sherry George DO [address] [place] [address] Consulting Physician General Surgery 04/06/22 [place] [address] [place] [address] [facility] [employer] [address]uk[address] [place] [address] 21322 Referring Physician General Surgery 03/22/22 Acupressurist Relationship Specialty Start Date End Date Zack Olmos MD [address] [place] [address] 58395 PCP - General Family Medicine 08/11/14 Lenin Ramirez MD [address] [facility] [address] [place] [address] Consulting Physician Interventional Cardiology 04/06/22 Sherry George DO [address] [place] [address] Consulting Physician General Surgery 04/06/22 Андрей Pizano MD [address] [facility] [employer] [id number] [place] [address] 06358 Referring Physician General Surgery 03/22/22 Acupressurist Relationship Specialty Start Date End Date Zack Olmos MD [address] [place] [id number] PCP - General Family Medicine 08/11/14 Lenin Ramirez MD [address] [facility] [address] [place] [address] Consulting Physician Interventional Cardiology 04/06/22 Sherry George DO [address] [place] [address] Consulting Physician General Surgery 04/06/22 Андрей Pizano MD [address] [facility] [employer] [id number] [place] [address] Referring Physician General Surgery 03/22/22 Acupressurist Relationship Specialty Start Date End Date Zack Olmos MD [address] [place] [address] 45924 PCP - General Family Medicine 08/11/14 Lenin Ramirez MD [address] [facility] [address] [place] [address] Consulting Physician Interventional Cardiology 04/06/22 Sherry George DO [address] [place] [address] Consulting Physician General Surgery 04/06/22 Андрей Pizano MD [address]61 [facility] [place] [id number] [place] [id number] Referring Physician General Surgery 03/22/22 Acupressurist Relationship Specialty Start Date End Date Zack Olmos MD [address] [place] [address] PCP - General Family Medicine 08/11/14 Lenin Ramirez MD [address] [place] [address] Consulting Physician Interventional Cardiology 04/06/22 Sherry George DO [address] [place] [address] Consulting Physician General Surgery 04/06/22 Андрей Pizano MD [address] [facility] [id number] [place] [id number] Referring Physician General Surgery 03/22/22 FOR RECORDS [...] BE BASED ON THE PRIMARY CLINICAL RECORDS. [employer] provides no warranty or guarantee of the accuracy or completeness of information in this document.
--- NOTE | 2023-04-22 15:02 | ED.VIS.DYS ---
HPI History of Present Illness Chief Complaint: Shortness of Breath Informant: patient Narrative Narrative: Patient states he returns to the hospital with generalized weakness. When specifically asked he thinks his breathing is a little bit worse but he states his breathing is always bad. He was just in the hospital with COPD generalized weakness and diagnosed with influenza A. He went home yesterday afternoon. He states he just feels weaker and weaker. When he came here he initially had sats that appear to be 76% on his 4 L. He has bumped up to 8 and is now 93 to 94%. But the patient actually looks like he is tolerating this quite well. He also states that his blood pressures have been running low for weeks. He has not been syncopal. He is not having chest pain. He also has not been using his nebulizer at home. [facility] Medical History (Updated 04/22/23 @ 18:[address] Ranulfo Gallegos MD) Anemia Anxiety Arthritis Back pain BPH (benign prostatic hyperplasia) Congestive heart failure (CHF) COPD (chronic obstructive pulmonary disease) Coronary artery disease involving coronary bypass graft Coronary atherosclerosis of [place] coronary artery CPAP (continuous positive airway pressure) dependence Depression Emphysema, unspecified End-stage renal disease on hemodialysis Erectile dysfunction ESRD (end stage renal disease) Former smoker GERD (gastroesophageal reflux disease) Gout High cholesterol History of atrial fibrillation History of edema History of heart attack HLD (hyperlipidemia) Hypertension Lower GI bleed Lumbar disc disease with radiculopathy Obesity On home oxygen therapy MARCELO (obstructive sleep apnea) Pleural effusion Psychosexual dysfunction with inhibited sexual excitement Sleep apnea Symptomatic anemia Home Medications allopurinol 100 mg tablet 100 mg PO DAILY GOUT 05/03/18 [History Last Taken 04/18/23] nitroglycerin 0.4 mg sublingual tablet 0.4 mg sublingual Q5-15M PRN chest pain 05/03/18 [History Last Taken Unknown] amiodarone 200 mg tablet 100 mg PO DAILY heart 11/19/20 [History Last Taken 04/18/23] rosuvastatin 10 mg tablet (Crestor) 10 mg PO QHS cholesterol 11/19/20 [History Last Taken 04/17/23] ascorbic acid (vitamin C) 500 mg capsule,extended release (Vitamin C) 500 mg PO DAILY supplement 11/23/20 [History Last Taken 04/18/23] gabapentin 100 mg capsule 200 mg PO QHS restless leg 11/04/21 [History Last Taken 04/17/23] midodrine 10 mg tablet 10 mg PO MOWEFR bp 11/04/21 [History Last Taken 03/18/22] levothyroxine 50 mcg tablet 50 mcg PO DAILY thyroid 12/13/21 [History Last Taken 03/18/22] carvedilol 3.125 mg tablet 3.125 mg PO SuTuThSa@1000 #0 tabs 03/23/22 [Rx Last Taken 04/18/23] guaifenesin 600 mg tablet, extended release 12 hr (Mucinex) 600 mg PO BID 06/07/22 [History Last Taken Unknown] albuterol sulfate 2.5 mg/3 mL (0.083 %) solution for nebulization 2.5 mg (3 mL) inhalation 4X/DAY PRN PRN COPD #180 mL 04/04/23 [Rx Last Taken 04/18/23] aspirin 81 mg tablet,delayed release (Adult Aspirin Regimen) 81 mg PO DAILY 04/04/23 [History Last Taken 04/18/23] fluticasone propionate 50 mcg/actuation nasal spray,suspension 2 spray intranasal DAILY PRN ALLERGIES 04/04/23 [History Last Taken Unknown] glycopyrrolate 9 mcg-formoterol 4.8 mcg HFA aerosol inhaler (Bevespi Aerosphere) 2 puff inhalation BID SOB 04/04/23 [History Last Taken Unknown] sertraline 100 mg tablet 100 mg PO DAILY 04/04/23 [History Last Taken Unknown] vitamin B complex-vitamin C-folic acid 0.8 mg tablet (Tawanna-Laura) 1 tab PO Q24H 04/18/23 [History Last Taken Unknown] oseltamivir 30 mg capsule 30 mg PO 2200 #10 caps 04/20/23 [Rx Last Taken Unknown] Allergy/AdvReac Type Severity Reaction Status Date / Time Penicillins Allergy Severe Rash, 105 Verified 04/22/23 14:23 temp amlodipine Allergy itching Verified 04/22/23 14:23 and rash prednisone Allergy Other Verified 04/22/23 14:23 indomethacin AdvReac Intermediate Other Verified 04/22/23 14:23 ropinirole AdvReac Intermediate Other Verified 04/22/23 14:23 trazodone AdvReac Intermediate Other Verified 04/22/23 14:23 aspirin AdvReac Mild rash Verified 04/22/23 14:23 Family History Mother , 84 y.o. Hypertension CVA (cerebral vascular accident) Father , 70 y.o. Heart disease Hodgkin disease Sister , 72 y.o. Heart disease Surgical History H/O left cataract extraction History of cardiac catheterization History of colectomy (~2022) History of colonoscopy History of coronary artery stent placement History of heart artery stent History of heart surgery History of knee replacement procedure of left knee History of open heart surgery (~08/2020) History of total right knee replacement S/P arteriovenous (AV) fistula repair (~12/2020) Social History household members: spouse housing: house pets and animals: No Smoking Status: Former smoker second hand exposure: No alcohol intake: current alcohol intake frequency: holidays/special occasions only ROS ROS ED ROS Narrative A complete review of systems was performed and is negative except as documented in the history of present illness. Some specific details below. Constitutional: No recent fevers or chills since going home. But he does have malaise. EYE: No discharge, visual complaints, or pain. ENT: No reflux symptoms. CV: History of atrial fibrillation. But he denies chest pain Respiratory: See history of present illness. Cough and short of breath. He states this is chronic but is likely worse over the last day or 2. GI: No abdominal pain. No vomiting. Appetite has been down. : No frequency dysuria or hematuria. Musculoskeletal: No recent trauma. No pains. Skin: No rash. Nondiaphoretic. Neuro: No focal weakness or numbness. Endocrine: No polyuria or polydipsia. EXAM Physical Exam Narrative Exam Narrative: CONSTITUTIONAL: Patient is nontoxic in appearance. The patient looks comfortable. Work of breathing looks slightly increased. Although his vitals make him look significantly acutely ill, he actually looks much more comfortable than his vital signs would imply. HEENT: No notable trauma. Mucous membranes moist. No sinus tenderness. No indication of pain with swallowing. EYES: No conjunctival injection. No proptosis. NECK:No JVD. No stridor. CARDIOVASCULAR: Mildly tachycardic rate. Irregular rhythm. Known history of atrial fibrillation RESPIRATORY: Some increased work of breathing. Decreased breath sounds throughout. Saturations look good now but this is after his oxygen was increased. He carries on normal conversation. GASTROINTESTINAL: Not distended. Bowel sounds are normal. No tenderness. No guarding. No rebound. No palpable mass. No bruit is heard. GENITOURINARY: No tenderness over the bladder. MUSCULOSKELETAL: Atraumatic. NEUROLOGICAL: Patient is alert and appropriate. No focal deficit noted. He is not at all sleepy or lethargic or confused. SKIN: No noted rashes. No diaphoresis. PSYCHIATRIC: Patient is calm. Mood is appropriate. Const Vital Signs: 04/22/23 14:23 04/22/23 14:33 04/22/23 14:32 Temperature 99 F 99 F Temperature Source Temporal Oral Pulse Rate 105 H 105 H Respiratory Rate 20 H 26 H Respiratory Effort Short of Breath Respiratory Depth Normal Respiratory Pattern Normal Blood Pressure 89/49 L 89/49 L Blood Pressure Mean 62 62 Pulse Ox 76 76 Oxygen Delivery Method Nasal Cannula Nasal Cannula Nasal Cannula Oxygen Flow Rate (L/min) 4 6 04/22/23 14:45 04/22/23 14:57 04/22/23 15:15 Temperature Temperature Source Pulse Rate 101 H Respiratory Rate 22 H Respiratory Effort Respiratory Depth Respiratory Pattern Normal Blood Pressure Blood Pressure Mean Pulse Ox 81 93 Oxygen Delivery Method Nasal Cannula High Flow Oxygen Flow Rate (L/min) 6 8 04/22/23 15:01 04/22/23 14:52 04/22/23 15:00 Temperature Temperature Source Pulse Rate 105 H 93 Respiratory Rate 16 19 H Respiratory Effort Respiratory Depth Respiratory Pattern Blood Pressure 102/57 L Blood Pressure Mean 70 Pulse Ox 93 Oxygen Delivery Method Nasal Cannula Oxygen Flow Rate (L/min) 04/22/23 15:10 04/22/23 15:15 04/22/23 15:20 Temperature Temperature Source Pulse Rate 102 H 94 98 Respiratory Rate 19 H 19 H 14 Respiratory Effort Respiratory Depth Respiratory Pattern Blood Pressure 107/53 L Blood Pressure Mean 68 Pulse Ox 92 95 94 Oxygen Delivery Method Oxygen Flow Rate (L/min) 04/22/23 15:30 04/22/23 15:40 04/22/23 15:45 Temperature Temperature Source Pulse Rate 97 101 H 101 H Respiratory Rate 18 17 12 Respiratory Effort Respiratory Depth Respiratory Pattern Blood Pressure 103/52 L 106/72 Blood Pressure Mean 65 83 Pulse Ox 94 96 Oxygen Delivery Method Oxygen Flow Rate (L/min) 04/22/23 15:50 04/22/23 16:00 04/22/23 16:10 Temperature Temperature Source Pulse Rate 103 H 103 H 100 Respiratory Rate 22 H 20 H 17 Respiratory Effort Respiratory Depth Respiratory Pattern Blood Pressure 112/63 Blood Pressure Mean 79 Pulse Ox 98 99 99 Oxygen Delivery Method Oxygen Flow Rate (L/min) 04/22/23 16:15 04/22/23 16:20 04/22/23 16:30 Temperature Temperature Source Pulse Rate 98 96 Respiratory Rate 13 16 Respiratory Effort Respiratory Depth Respiratory Pattern Blood Pressure 110/62 114/80 Blood Pressure Mean 77 93 Pulse Ox 97 100 Oxygen Delivery Method Oxygen Flow Rate (L/min) 04/22/23 16:40 04/22/23 16:45 04/22/23 16:50 Temperature Temperature Source Pulse Rate 102 H 91 99 Respiratory Rate 16 19 H 17 Respiratory Effort Respiratory Depth Respiratory Pattern Blood Pressure 111/64 Blood Pressure Mean 78 Pulse Ox 99 Oxygen Delivery Method Oxygen Flow Rate (L/min) 04/22/23 17:00 04/22/23 17:10 04/22/23 17:15 Temperature Temperature Source Pulse Rate 100 96 Respiratory Rate 17 18 Respiratory Effort Respiratory Depth Respiratory Pattern Blood Pressure 107/63 105/65 Blood Pressure Mean 74 78 Pulse Ox 98 97 Oxygen Delivery Method Oxygen Flow Rate (L/min) 04/22/23 17:20 04/22/23 17:30 04/22/23 17:40 Temperature Temperature Source Pulse Rate 102 H 98 101 H Respiratory Rate 16 20 H 18 Respiratory Effort Respiratory Depth Respiratory Pattern Blood Pressure 103/68 Blood Pressure Mean 80 Pulse Ox 98 98 98 Oxygen Delivery Method Oxygen Flow Rate (L/min) MDM MDM MDM Narrative Medical decision making narrative: Patient's ABG showed a pH of 7.368, pCO2 of 53, PaO2 of 88.8. Patient CBC shows a mild anemia. White counts normal. Platelets are just minimally low. Electrolytes show chronic renal disease. Glucose is only minimally up. Lactic acid is normal at 1.7 which surprised me a little bit due to his degree of hypoxia. BNP is quite high but he does have chronic renal failure and on dialysis. Patient was watched carefully here. By bringing up his oxygen level his blood pressure is also come up. I wanted to avoid significant IV hydration due to his history of dialysis. I discussed case with the . Evidently yesterday he was exceedingly weak trying to get him to dialysis. He got almost weak confused and freitas looking. At dialysis he evidently had low blood pressure as they stopped his carvedilol and started fludrocortisone. Evidently they were going to send him into the emergency department yesterday but he really did not want to go. This now makes me question if he had a full course of dialysis or not. I am not sure what the answer to that question is. But it does make me concerned and could contribute to his findings on x-ray of congestive heart failure. Today the patient was too weak to walk even from her room into a bathroom. He got confused. His lips turned freitas. His face changed colors and he got confused. I think this is likely hypoxia. He has documented hypoxia in the 70% range on 4 L when he is normally on 3 L at home. I do not think this patient can go home. I think his illness is multifactorial related to chronic disease, COPD, CHF and fluid overload, recent influenza and weakness. But with his significant hypoxia this is not appropriate for discharge. My independent or potation the patient's chest x-ray is consistent with some CHF. Lab Data Attestation: I reviewed the patient's lab results. Labs: Laboratory Results - last 24 hr 04/22/23 14:32 WBC 10.2 RBC 3.10 L Hgb 10.5 L Hct 34.1 L MCV 110.0 H MCH 33.9 H MCHC 30.8 L RDW Std Deviation 60.7 H RDW Coeff of Nick 15.0 H Plt Count 146 L MPV 9.3 Immature Gran % (Auto) 0.300 Neut % (Auto) 89.2 H Lymph % (Auto) 3.4 L Ware % (Auto) 7.1 Eos % (Auto) 0.0 Baso % (Auto) 0.0 Absolute Neuts (auto) 9.1 H Absolute Lymphs (auto) 0.35 L Nucleated RBC % 0.2 Sodium 135 L Potassium 4.2 Chloride 97 L Carbon Dioxide 34.0 H Anion Gap 4 L BUN 46 H Creatinine 3.99 H Estim Creat Clear Calc 16.43 Est GFR (MDRD) Af Amer 19 L Est GFR (MDRD) Non-Af 16 L BUN/Creatinine Ratio 11.5 Glucose 115 H Lactic Acid 1.7 Calcium 8.8 B-Natriuretic Peptide 2953.2 H ABG Data ABG results: ABG 04/22/23 14:54 Specimen Type ART Sample Site R Radial pH 7.37 Bicarbonate Actual 30.6 H Total CO2 32 Base Excess 5 H O2 Saturation 96 O2 % 8.0 ABG pCO2 53.2 H ABG pO2 89 Sathya Test Positive O2 Delivery Device HFNC Vent Mode Not entered Radiography Diagnostic Testing: Clinical Impression(s) from Imaging Studies Chest X-Ray 04/22/23 15:35 IMPRESSION: Moderate CHF or infiltrates increased Electronically Signed: Wale Babcock MD at 16:26 EST Reading Location ID and State: [facility] / [place] Tel , Service support , EKG Initial EKG: Comments: My independent interpretation of the patient's EKG shows atrial fibrillation with overall rate of 105. Occasional PVC. No significant acute ST elevation or depression. Mild nonspecific changes. QRS duration and QTc are normal. Management Discussion w/another healthcare provider: Hospitalist Discharge Plan Triage Chief Complaint: Shortness of Breath ED Provider: Ranulfo Gallegos Dx/Rx/DC Orders Clinical Impression: CHF (congestive heart failure), Hypoxia, COPD with acute exacerbation, Generalized weakness, Unable to ambulate, History of influenza Prescriptions: No Action allopurinol 100 mg tablet 100 mg PO DAILY nitroglycerin 0.4 mg tablet, sublingual 0.4 mg SUBLINGUAL Q5-15M PRN (Reason: chest pain) amiodarone 200 mg tablet 100 mg PO DAILY rosuvastatin [Crestor] 10 mg tablet 10 mg PO QHS gabapentin 100 mg capsule 200 mg PO QHS midodrine 10 mg tablet 10 mg PO MOWEFR Patient Comments: per patient he takes before dialysis Rx Instructions: do not give last dose of day after 6PM or within 4 hrs of bedtime guaifenesin [Mucinex] 600 mg tablet extended release 12hr 600 mg PO BID fluticasone propionate 50 mcg/actuation spray,suspension 2 spray INTRANASAL DAILY PRN (Reason: ALLERGIES) Bevespi Aerosphere 9-4.8 mcg HFA aerosol inhaler 2 puff INHALATION BID sertraline 100 mg tablet 100 mg PO DAILY Patient Comments: TAKE 1 TABLET BY MOUTH ONCE DAILY aspirin [Adult Aspirin Regimen] 81 mg tablet,delayed release (DR/EC) 81 mg PO DAILY albuterol sulfate 2.5 mg /3 mL (0.083 %) solution for nebulization 2.5 mg inhalation 4X/DAY PRN PRN (Reason: COPD) Qty: 180 6RF ascorbic acid (vitamin C) [Vitamin C] 500 mg Capsule, Extended Release 500 mg PO DAILY levothyroxine 50 mcg tablet 50 mcg PO DAILY carvedilol 3.125 mg Tablet 3.125 mg PO SuTuThSa@1000 Qty: 0 0RF Tawanna-Laura 0.8 mg tablet 1 tab PO Q24H Patient Comments: TAKE 1 TABLET BY MOUTH ONCE DAILY oseltamivir 30 mg Capsule 30 mg PO 2200 Qty: 10 0RF Primary Care Provider: Zack Stacy Referrals: Zack Stacy MD [Primary Care Provider] - Disposition Disposition: Acute Care [facility]
[2023-04-22] MEDS: Ipratropium/Albuterol Sulfate 3 ML AMPUL.NEB INHALATION ×2 (15:13→20:47)
[2023-04-22 15:22] LABS: Absolute Lymphocyte Count 0.35 X10^3/uL (0.83-4.51); Absolute Neutrophil Count 9.1 X10^3/uL (2.0-7.7); Hematocrit 34.1 % (40-54); Hemoglobin 10.5 g/dL (13.0-16.5); Lymphocyte # 0.35 X10^3/ul (0.83-4.51); Lymphocyte % 3.4 % (19-41); Mean Corp Hgb Conc 30.8 g/dL (32-36); Mean Corpuscular Hgb 33.9 pg (27.0-32.0); Mean Platelet Vol. 9.3 fl (6.2-12.0); Monocyte# 0.72 X10^3/uL; Monocyte% 7.1 % (0-10); NRBC Flagged by Analyzer 0.2 % (0-5); Neutrophil # 9.06 X10^3/uL (2.7-7.7); Neutrophil % 89.2 % (47-70); POSITIVE DIFFERENTIAL YES; Platelet Count 146 K/mm3 (150-450); RBC Distribution Width SD 60.7 fl (35.1-43.9); White Blood Count 10.2 K/mm3 (4.4-11.0)
--- NOTE | 2023-04-22 15:35 | RAD_ITS ---
STUDY: X-RAY CHEST REASON FOR EXAM: Male, 77 years old. sob TECHNIQUE: Single frontal view of the chest. COMPARISON: 04/18/2023 FINDINGS: Sternotomy wires. Moderate interstitial infiltrates or edema increased. bilateral pleural effusions. Normal size heart. Normal mediastinum and isaura. Normal visualized pulmonary arteries. Normal visualized aortic arch and descending thoracic aorta. Normal visualized thoracic spine. Normal visualized ribs, clavicles, and shoulders. There is no demonstrated abnormality of the visualized soft tissue structures of the upper abdomen. RAD/Chest 1 View (Portable) IMPRESSION: Moderate CHF or infiltrates increased Electronically Signed: Wale Babcock MD at 16:26 EST ,
[2023-04-22 15:36] LABS: Anion Gap 4 (5-15); BUN 46 mg/dL (7-18); BUN/Creat Ratio 11.5 RATIO (10-20); Calcium,Total 8.8 mg/dL (8.5-10.1); Chloride 97 mmol/L (98-107); Creatinine, Serum 3.99 mg/dL (0.70-1.30); EST Glomerular Filtration Rate 16 mL/min (>60); Est Glom Filt Rate - Afr Amer 19 mL/min (>60); Estimated Creatinine Clearance 16.43 ml/min; Glucose 115 mg/dL (74-106); Potassium 4.2 mmol/L (3.5-5.1); Sodium Level 135 mmol/L (136-145)
[2023-04-22 15:44] LABS: Lactic Acid 1.7 mmol/L (0.4-1.9)
[2023-04-22 15:45] LABS: BNP,B-Type NATRIURETIC PEPTIDE 2953.2 pg/mL (0-100)
--- NOTE | 2023-04-22 18:13 | PCM.HP.STD ---
HPI - General General Date of Admission: 04/22/23 Date of Service: 04/22/23 Chief Complaint: Worsening weakness and hypoxia HPI Narrative ANGIE SINGH, is a 77-year-old male history of A-fib, chronic hypoxic respiratory failure on 3.5 L home O2 COPD, MARCELO, CAD s/p CABG, CHF, MARCELO, hypothyroidism, depression, gout who presented to [facility] ED 04/22/2023 with generalized weakness. He was recently admitted in the hospital with COPD, A-fib with RVR, influenza A, and generalized weakness and was discharged home yesterday afternoon but has been getting progressively weaker and feels his breathing is also somewhat worse. When he presented initially sats were 76% on 4 L, sats increased to 8 L and is 93 to 94% and tolerating that well. Reportedly was not using his nebulizers at home. In the ED patient improved on high flow oxygen and with nebulizer. He did have BNP greater than 2000 however this is actually down from previous but chest x-ray was consistent with CHF. Hospitalist contacted for admission for worsening hypoxia and worsening generalized weakness. Patient evaluated with at bedside and they report he has just been increasingly weak since discharge and has been having episodes of hypoxia, not necessarily increased shortness of breath per se but also has not been doing much activity. Was hypotensive at dialysis on Monday and they started fludrocortisone to get his blood pressure up, reportedly they were able to take off 3 kg however which is about his baseline. He is continued to be weak and at times will get confused and have freitas lips and noted this morning that he was hypoxic with his CPAP on and they took it off and put him back on nasal cannula which improved sats to 90s. Patient is feeling better after getting a neb treatment in ED but still generally weak and requiring higher O2 than baseline. [facility] Medical History (Updated 04/22/23 @ 18:[address] Ranulfo Gallegos MD) Anemia Anxiety Arthritis Back pain BPH (benign prostatic hyperplasia) Congestive heart failure (CHF) COPD (chronic obstructive pulmonary disease) Coronary artery disease involving coronary bypass graft Coronary atherosclerosis of [place] coronary artery CPAP (continuous positive airway pressure) dependence Depression Emphysema, unspecified End-stage renal disease on hemodialysis Erectile dysfunction ESRD (end stage renal disease) Former smoker GERD (gastroesophageal reflux disease) Gout High cholesterol History of atrial fibrillation History of edema History of heart attack HLD (hyperlipidemia) Hypertension Lower GI bleed Lumbar disc disease with radiculopathy Obesity On home oxygen therapy MARCELO (obstructive sleep apnea) Pleural effusion Psychosexual dysfunction with inhibited sexual excitement Sleep apnea Symptomatic anemia Home Medications allopurinol 100 mg tablet 100 mg PO DAILY GOUT 05/03/18 [History Last Taken 04/18/23] nitroglycerin 0.4 mg sublingual tablet 0.4 mg sublingual Q5-15M PRN chest pain 05/03/18 [History Last Taken Unknown] amiodarone 200 mg tablet 100 mg PO DAILY heart 11/19/20 [History Last Taken 04/18/23] rosuvastatin 10 mg tablet (Crestor) 10 mg PO QHS cholesterol 11/19/20 [History Last Taken 04/17/23] ascorbic acid (vitamin C) 500 mg capsule,extended release (Vitamin C) 500 mg PO DAILY supplement 11/23/20 [History Last Taken 04/18/23] gabapentin 100 mg capsule 200 mg PO QHS restless leg 11/04/21 [History Last Taken 04/17/23] midodrine 10 mg tablet 10 mg PO MOWEFR bp 11/04/21 [History Last Taken 03/18/22] levothyroxine 50 mcg tablet 50 mcg PO DAILY thyroid 12/13/21 [History Last Taken 03/18/22] carvedilol 3.125 mg tablet 3.125 mg PO SuTuThSa@1000 #0 tabs 03/23/22 [Rx Last Taken 04/18/23] guaifenesin 600 mg tablet, extended release 12 hr (Mucinex) 600 mg PO BID 06/07/22 [History Last Taken Unknown] albuterol sulfate 2.5 mg/3 mL (0.083 %) solution for nebulization 2.5 mg (3 mL) inhalation 4X/DAY PRN PRN COPD #180 mL 04/04/23 [Rx Last Taken 04/18/23] aspirin 81 mg tablet,delayed release (Adult Aspirin Regimen) 81 mg PO DAILY 04/04/23 [History Last Taken 04/18/23] fluticasone propionate 50 mcg/actuation nasal spray,suspension 2 spray intranasal DAILY PRN ALLERGIES 04/04/23 [History Last Taken Unknown] glycopyrrolate 9 mcg-formoterol 4.8 mcg HFA aerosol inhaler (BevesFwd: Powerphere) 2 puff inhalation BID SOB 04/04/23 [History Last Taken Unknown] sertraline 100 mg tablet 100 mg PO DAILY 04/04/23 [History Last Taken Unknown] vitamin B complex-vitamin C-folic acid 0.8 mg tablet (Tawanna-Laura) 1 tab PO Q24H 04/18/23 [History Last Taken Unknown] oseltamivir 30 mg capsule 30 mg PO 2200 #10 caps 04/20/23 [Rx Last Taken Unknown] Allergy/AdvReac Type Severity Reaction Status Date / Time Penicillins Allergy Severe Rash, 105 Verified 04/22/23 14:23 temp amlodipine Allergy itching Verified 04/22/23 14:23 and rash prednisone Allergy Other Verified 04/22/23 14:23 indomethacin AdvReac Intermediate Other Verified 04/22/23 14:23 ropinirole AdvReac Intermediate Other Verified 04/22/23 14:23 trazodone AdvReac Intermediate Other Verified 04/22/23 14:23 aspirin AdvReac Mild rash Verified 04/22/23 14:23 Family History Mother , 84 y.o. Hypertension CVA (cerebral vascular accident) Father , 70 y.o. Heart disease Hodgkin disease Sister , 72 y.o. Heart disease Surgical History H/O left cataract extraction History of cardiac catheterization History of colectomy (~2022) History of colonoscopy History of coronary artery stent placement History of heart artery stent History of heart surgery History of knee replacement procedure of left knee History of open heart surgery (~08/2020) History of total right knee replacement S/P arteriovenous (AV) fistula repair (~12/2020) Social History household members: spouse housing: house pets and animals: No Smoking Status: Former smoker second hand exposure: No alcohol intake: current alcohol intake frequency: holidays/special occasions only ROS ROS Narrative General: Denies fever/chills, has had some confusion HENT: Denies headache, denies stuffy nose, denies sore throat EYES: Denies changes in vision Resp: Slight cough that is nonproductive, has been dyspneic similar last hospitalization Cardiac: Denies chest pain GI: Denies abdominal pain, denies changes in bowel, denies nausea/vomiting : Patient makes minimal if any urine Extremity: Denies any increase in swelling MSK: Generalized weakness Neuro: Denies any numbness/tingling Heme: Denies any bleeding or bruising Skin: Denies rashes Psychiatric: No complaints voiced Vital Signs Vital Signs Vital Signs: 04/22/23 14:23 04/22/23 14:33 04/22/23 14:32 Temperature 99 F 99 F Temperature Source Temporal Oral Pulse Rate 105 H 105 H Respiratory Rate 20 H 26 H Respiratory Effort Short of Breath Respiratory Depth Normal Respiratory Pattern Normal Blood Pressure 89/49 L 89/49 L Blood Pressure Mean 62 62 Pulse Ox 76 76 Oxygen Delivery Method Nasal Cannula Nasal Cannula Nasal Cannula Oxygen Flow Rate (L/min) 4 6 04/22/23 14:45 04/22/23 14:57 04/22/23 15:15 Temperature Temperature Source Pulse Rate 101 H Respiratory Rate 22 H Respiratory Effort Respiratory Depth Respiratory Pattern Normal Blood Pressure Blood Pressure Mean Pulse Ox 81 93 Oxygen Delivery Method Nasal Cannula High Flow Oxygen Flow Rate (L/min) 6 8 04/22/23 15:01 04/22/23 14:52 04/22/23 15:00 Temperature Temperature Source Pulse Rate 105 H 93 Respiratory Rate 16 19 H Respiratory Effort Respiratory Depth Respiratory Pattern Blood Pressure 102/57 L Blood Pressure Mean 70 Pulse Ox 93 Oxygen Delivery Method Nasal Cannula Oxygen Flow Rate (L/min) 04/22/23 15:10 04/22/23 15:15 04/22/23 15:20 Temperature Temperature Source Pulse Rate 102 H 94 98 Respiratory Rate 19 H 19 H 14 Respiratory Effort Respiratory Depth Respiratory Pattern Blood Pressure 107/53 L Blood Pressure Mean 68 Pulse Ox 92 95 94 Oxygen Delivery Method Oxygen Flow Rate (L/min) 04/22/23 15:30 04/22/23 15:40 04/22/23 15:45 Temperature Temperature Source Pulse Rate 97 101 H 101 H Respiratory Rate 18 17 12 Respiratory Effort Respiratory Depth Respiratory Pattern Blood Pressure 103/52 L 106/72 Blood Pressure Mean 65 83 Pulse Ox 94 96 Oxygen Delivery Method Oxygen Flow Rate (L/min) 04/22/23 15:50 04/22/23 16:00 04/22/23 16:10 Temperature Temperature Source Pulse Rate 103 H 103 H 100 Respiratory Rate 22 H 20 H 17 Respiratory Effort Respiratory Depth Respiratory Pattern Blood Pressure 112/63 Blood Pressure Mean 79 Pulse Ox 98 99 99 Oxygen Delivery Method Oxygen Flow Rate (L/min) 04/22/23 16:15 04/22/23 16:20 04/22/23 16:30 Temperature Temperature Source Pulse Rate 98 96 Respiratory Rate 13 16 Respiratory Effort Respiratory Depth Respiratory Pattern Blood Pressure 110/62 114/80 Blood Pressure Mean 77 93 Pulse Ox 97 100 Oxygen Delivery Method Oxygen Flow Rate (L/min) 04/22/23 16:40 04/22/23 16:45 04/22/23 16:50 Temperature Temperature Source Pulse Rate 102 H 91 99 Respiratory Rate 16 19 H 17 Respiratory Effort Respiratory Depth Respiratory Pattern Blood Pressure 111/64 Blood Pressure Mean 78 Pulse Ox 99 Oxygen Delivery Method Oxygen Flow Rate (L/min) 04/22/23 17:00 04/22/23 17:10 04/22/23 17:15 Temperature Temperature Source Pulse Rate 100 96 Respiratory Rate 17 18 Respiratory Effort Respiratory Depth Respiratory Pattern Blood Pressure 107/63 105/65 Blood Pressure Mean 74 78 Pulse Ox 98 97 Oxygen Delivery Method Oxygen Flow Rate (L/min) 04/22/23 17:20 04/22/23 17:30 04/22/23 17:40 Temperature Temperature Source Pulse Rate 102 H 98 101 H Respiratory Rate 16 20 H 18 Respiratory Effort Respiratory Depth Respiratory Pattern Blood Pressure 103/68 Blood Pressure Mean 80 Pulse Ox 98 98 98 Oxygen Delivery Method Oxygen Flow Rate (L/min) Weight Weight: 85.2 kg Body Mass Index (BMI) 29.4 Physical Exam Narrative General: Alert, oriented, no apparent distress HEENT: Atraumatic, normocephalic Eyes: Anicteric, normal conjunctiva, extraocular movements grossly intact Neck: Supple Respiratory: Coarse bilaterally, increased respiratory effort Cardiovascular: Low-grade tachycardia GI: Soft, nontender, nondistended Extremities: Trace to 1+ lower extremity edema Musculoskeletal: Moving all extremities but is very weak in bed Neuro: No overt focal neurological deficits Skin: No rashes appreciated Psych: Cooperative Results Lab / Micro Data 04/22/23 14:32 04/22/23 14:32 Labs: Laboratory Results - last 24 hr 04/22/23 14:32: WBC 10.2, RBC 3.10 L, Hgb 10.5 L, Hct 34.1 L, MCV 110.0 H, MCH 33.9 H, MCHC 30.8 L, RDW Std Deviation 60.7 H, RDW Coeff of Nick 15.0 H, Plt Count 146 L, MPV 9.3, Immature Gran % (Auto) 0.300, Neut % (Auto) 89.2 H, Lymph % (Auto) 3.4 L, Hardin % (Auto) 7.1, Eos % (Auto) 0.0, Baso % (Auto) 0.0, Absolute Neuts (auto) 9.1 H, Absolute Lymphs (auto) 0.35 L, Nucleated RBC % 0.2, Sodium 135 L, Potassium 4.2, Chloride 97 L, Carbon Dioxide 34.0 H, Anion Gap 4 L, BUN 46 H, Creatinine 3.99 H, Estim Creat Clear Calc 16.43, Est GFR (MDRD) Af Amer 19 L, Est GFR (MDRD) Non-Af 16 L, BUN/Creatinine Ratio 11.5, Glucose 115 H, Lactic Acid 1.7, Calcium 8.8, B-Natriuretic Peptide 2953.2 H ABG Data ABG results: ABG 04/22/23 14:54 Specimen Type ART Sample Site R Radial pH 7.37 Bicarbonate Actual 30.6 H Total CO2 32 Base Excess 5 H O2 Saturation 96 O2 % 8.0 ABG pCO2 53.2 H ABG pO2 89 Sathya Test Positive O2 Delivery Device HFNC Vent Mode Not entered Imaging Radiology Impression Chest X-Ray 04/22/23 15:35 IMPRESSION: Moderate CHF or infiltrates increased Electronically Signed: Wale Babcock MD at 16:26 EST , Assessment & Plan Assessment/Plan (1) COPD with acute exacerbation: (2) CHF (congestive heart failure): (3) Coronary artery disease: (4) ESRD (end stage renal disease) on dialysis: (5) Generalized weakness: (6) GERD (gastroesophageal reflux disease): (7) History of influenza: (8) Hypoxia: (9) Unable to ambulate: PLAN: Plan # Acute hypoxia secondary to COPD exacerbation on chronic hypoxic respiratory failure on 3 L home O2 w/ chronic hypoxic resp failure and influenza A -Admit to telemetry -BNP 2953 but has previously been much higher -CXR with moderate CHF or increased infiltrates but patient improved with nebulizer treatment and pt reported feeling difficulty getting full breaths with inhaler so concern this is primary pulmonary and not cardiac process -Pt does not make urine -Last echo Last echocardiogram 2021 with EF of 25 to 30% -Repeat echo ordered given uncertainty -Did get 3kg off at HD yesterday reportedly despite low BP which is close to his baseline that is taken off -Daily weights, I's and O's -Admit to floor, continuous O2 monitoring -Dx recently w/ influeza A -Continue Tamiflu -O2 in place, wean as tolerated -Will place patient back on steroids as he may have also had slight worsening after discontinuation of steroids, may need taper -Scheduled DuoNebs -Incentive spirometer -Mucinex -PFTs in 2019 demonstrated irreversible severe mixed ventilatory defect with symmetric reduction in diffusion capacity and significant worsening compared to 2019 # Worsening generalized weakness -Likely secondary to underlying illness and deconditioning with poor reserve -PT/OT -Case management consult # A-fib -Recently admitted with A-fib with RVR -Continue Amio and beta-sammy -Previously on Eliquis but discontinued due to GI bleed #Hx HFrEF -Last echocardiogram 2021 with EF of 25 to 30% -Daily weights, I's and O's -Continue beta-sammy # Chronic macrocytic anemia -Appears to be at baseline -Not on anticoagulation for A-fib due to history of GI bleed # Thrombocytopenia -Mild, platelet count 146 which is actually increased from 123 -Continue to monitor -If worsens further may need to consider additional workup #MARCELO -Continue home NIPPV #Chronic hypotension -Continue midodrine -Continue fludrocortisone # Depression -Continue sertraline #ESRD on HD -Consult nephrology -Renal diet -Daily weights, I's and O's #Hypothyroidism -Continue Synthroid #Hx CAD s/p CABG -History of CABG and stent placement -Continue beta-sammy, statin, aspirin # Gout -Continue home medications #DVT ppx: Heparin subcu Kaylen Galindo MD Charges/Coding Visit Charges Inpatient E&M: 35173 Init Hosp L2
--- OUTSIDE RECORDS SUMMARY | 2023-04-22 18:23 | XMS RPT_ITS | CCD ---
Author Name Unknown Address [address] [place] [address] Organization [facility] Care Team Providers Care Chef Under Name Role Phone Zack Stacy Unavailable Raven Osullivan Unavailable Unavailable Zack Stacy Primary Care Provider Elise Justice Unavailable Unavailable Zack Stacy Primary Care Provider Zack Stacy MD Primary Care Provider Zack Stacy MD Primary Care Provider MYRA RIOS Attending Unavailable MYRA RIOS Referring Unavailable ZACK STACY Primary Care Unavailable LENIN RAMIREZ Referring Unavaila LENIN Puckett Attending Unavaila ZACK Carbajal Primary Care Unavailable Zack Stacy MD Primary Care Provider Lenin Ramirez MD Unavailable Sherry George DO Unavailable ZACK STACY Primary Care Unavailable ZACK STACY Referring Unavailable CHRISTIANE RINCON Attending Unavailabl e ZACK STACY Primary Care Unavailable SHERRY GEORGE Referring Unavailable ZACK STACY MD Primary Care Physician ZACK STACY Consulting Unavailable ZACK STACY Referring Unavailable PEARL BRADEN DO Admitting Unavailable PEARL BRADEN DO Primary Care Unavailable PEARL BRADEN DO Attending Unavailable PROVIDER, UNKNOWN Consulting Unavailable PROVIDER, UNKNOWN Consulting Unavailable PROVIDER, UNKNOWN Consulting Unavailable RILEY VICTOR MD Attending Unava ilable ZACK STACY Consulting Unavailable RILEY VICTOR MD Admitting Unava [...] Unavailable BROWN, ZACK F Primary Care Unavailable DAVCHERELLE LENIN GIL Admitting Unavaila ble BROWN, ZACK F Primary Care Unavailable DAVLENIN VILLARREAL Admitting Unavaila ble BROWN, ZACK F Primary Care Unavailable SHERRY GEORGE Referring Unavailable Nickolas GONZALEZ, Zack Holly Unavailable Dr. Danish Corrales MD Unavailable [facility] Unavailable Laith GONZALEZ, Dr. Rivera ([facility]) A Unavail able Orthopedic Provider Unavailable Unavailable Miranda GONZALEZ, Dr. Echevarria Unavailable Medicine [facility], Pulmonary Unavailable Cardiology Provider Unavailable Unavailable Garrett GONZALEZ, Dr. Fulton Unavailable Dr. Riley Victor MD Unavailable James GONZALEZ, Dr. García Unavailable Emilie COSTA, Farideh Unavailable Vascular Surgeon Unavailable Unavailable Luiz GONZALEZ, Rosy Gonsales Unavailable Jose [employer], [place] Unavailable Unavailable Elbert BAT[employer]Y ASSEM[employer], Laura E Unavailable Unavailable Jose Alberto BATTERY ASSEM[employer]ER [employer], Lesley C Unavailable Unavailable Corcoran BAT[employer]Y ASSEM[employer], Yina Unavailable Unavailable Sanjeev GONZALEZ, Donaldo Herrera Unavailable Keenan MC, Edgar Gonsales Unavailable Keenan RN, Vania L Unavailable Unavail able Won [employer], Varsha Unavailable Unavailable Popeye DE LEON, Umu Herrera Unavailable Unavaila ble Marthey [employer]SEM[employer], Lien Unavailable Unavailable Cedric [employer] ASSEM[employer], Sravan Unavailable Unavailable Muters[place]augh BATTERY ASSEMBLER [employer], Deedee K Unavailable Unavai toya CORRALC, Yarely J Unavailable Konrad INDUSTRIAL ECONOMICS PROFESSOR, Randi Unavailable Unavailable Isac [employer]TERY ASSEMBL[employer], Alejandrina L Unavailable Unavailab le Corby [employer] AS[employer], Rosy M Unavailable Unavailab le Cary [employer], Muna Engel Unavailable Unavailab angelita Obrien MA, Varsha Unavailable Unavailable Kelly GONZALEZ, Gustavo Herrera Unavailable Wedannielleerd BAT[employer]Y ASSEM[employer], Sandra Unavailable Unavailabl e Partha BATTERY ASSEM[employer]ER [employer], Marisela N Unavailable Unavaila ble Zaugg BATTERY ASSEM[employer], Raven Unavailable Unavailable Unavailable Unavailable SHERRY GEORGE [...] (10 sources) amLODIPine Drug Allergy 0 Itching [facility] Aspirin (10 sources) Aspirin Drug Allergy 5 [facility] Corticosteroids (7 sources) predniSONE Drug Allergy 1 [facility] Penicillins (antibiotic) (10 sources) Penicillins Drug Allergy 5 Other (See Comments) [facility] (20 sources) aspirin; Translations: [EC ASPIRIN] Propensity to adverse reactions to drug 5 [facility] (20 sources) Penicillins; Translations: [PENICILLINS] Propensity to adverse reactions to drug 5 Other (See Comments) [facility] (20 sources) amLODIPine; Translations: [AMLODIPINE] Drug Allergy 0 Itching [facility] (20 sources) Penicillins; Translations: [penicillins] Propensity to adverse reactions to drug 5 Other (See Comments), Prednisone (substance) [facility] (20 sources) predniSONE; Translations: [PREDNISONE] Drug Allergy 1 Other (See Comments) [facility] (20 sources) Penicillins Propensity to adverse reactions to drug 5 Other (See Comments) [facility] (20 sources) oxyCODONE; Translations: [OXYCODONE] Drug Allergy 3 GI Intolerance [facility] (17 sources) Aspirin; Translations: [aspirin] Drug Allergy [facility] (1 source) Indomethacin; Translations: [indomethacin] [facility] Allergy [facility] (1 source) rOPINIRole; Translations: [ropinirole] Drug Allergy [facility] (1 source) traZODone; Translations: [trazodone] Drug Allergy [facility] (1 source) amLODIPine Drug Allergy [facility] (1 source) Penicillin Drug Allergy [facility] (1 source) predniSONE Drug Allergy [facility] (1 source) Coating on Aspirin Drug allergy (disorder) [facility] (16 sources) Penicillin V Drug Allergy [facility]. Medications Current Medications Medication Drug Class(es) Dates Sig (Normalized) Sig (Original) albuterol 0.83 mg/ml inhalation solution (20 sources) beta2-Adrenergic Agonist Start: 11-24-2022 take 1 dose by 1 goal intervention scheduled/documented in this visit [...] Management Goal:Pain Completed [facility] [...] Management Goal:Pain Completed [facility] Visit Details [...] Management Goal:Pain Completed [facility] Visit Details Visit Type -COPY CHIEF Routine Visi t Discipline -Physical Therapy Problems [...] 95% of instruction. [facility] Visit Details Visit Type -COPY CHIEF Routine Visi t Discipline -Physical Therapy Problems [...] 95% of instruction. documented in this encounter [facility]'s home Plan of care [...] Management Goal:Pain Scheduled documented in this encounter [facility]'s home Plan of care note* Visit Details Visit Type -COPY CHIEF Routine Visi t Discipline -Physical Therapy Problems [...] 90% of instruction. [facility] Visit Details Visit Type -COPY CHIEF Routine Visi t Discipline -Physical Therapy Problems [...] instructed on: updated hep to inclued standing may, Hr/tr and sts Patient/caregiver is able to teach back 90% of instruction. [facility] Visit Details Visit Type -COPY CHIEF Routine Visi t Discipline -Physical Therapy Problems [...] 95% of instruction. [facility] [...] 75% of instruction. [facility] Visit [...] may be best. [facility] Visit [...] 75% of instruction. 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 Pt [...] 90% of instruction. [facility] [...] storage of oxygen. [facility] [...] Care Plan Scheduled [facility] Visit [...] 75% of instruction. [facility] [...] of care note* Visit Details Visit Type -COPY CHIEF Routine Visi t Discipline -Physical Therapy Problems [...] 100% of instruction. [facility] [...] pt tolerated well. 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 Pt [...] 90% of instruction. [facility] [...] realizes that he needs to use the chef under instead of bending over. [facility] Visit Details Visit Type -COPY CHIEF Routine Visi t Discipline -Physical Therapy Problems [...] 100% of instruction. [facility] Visit Details Visit Type -COPY CHIEF Routine Visi t Discipline -Physical Therapy Problems [...] of care note* Visit Details Visit Type -COPY CHIEF Routine Visi t Discipline -Physical Therapy Problems [...] safety precautions Skilled intervention at next visit: COPY CHIEF plan to continue transfer trianing for increased safety and reduce risk for falls. Home Exercise Program Problem:Home Exercise Program Goal:Home Exercise Program Completed Patient reports: fair compliance Clinician taught: patient Clinician instructed on: COPY CHIEF reviews standing HEP with patient. Patient demos fair recall with technique and reports fair compliance with exercise program. Patient/caregiver is able to teach back 80% of instruction. Patient with O2 donned during therex at 2L, SPO2 levels still dropped to 79% during standing therex, COPY CHIEF provides cues again for PLB techniques, fair carryover, SPO2 levels returned to 93%+ by end of session. patient left in chair with O2 donned with spouse present Instruct Mobility Problem:Mobility Goal:Mobility Completed Patient reports: no falls Clinician taught: patient Clinician instructed on: COPY CHIEF provides skilled instruct for pateint to compelte STS t/f from chair with COPY CHIEF CGA during for safety, max verbal cues for proper technique and safety awareness to avoid a fall, patient with one major LOB requiring Wendy from COPY CHIEF to prevent fall, skilled instruct for patient to complete stair training with CGA and use of grab bars, patient with poor safety awareness as noted by impulsivity, O2 tubing too short to reach garage, doffed tubing, constant cues to patient for proper breathing techniques. COPY CHIEF provides skilled instruct for patient to complete car transfer training with COPY CHIEF providing demo for maximum safety, implemented wooden step to increase safety, spouse present for traiing with both patient and spouse report understanding on use of wooden step to increase safety. patient continues to demo impulsivity with all transfers and mobility, constant cues to correct. upon return to sit in chair, SPO2 levels 68%, immediately donned O2 and COPY CHIEF instructed patient to compelte PLB techniques, cues to continue these until SPO@ levels returned to 94%, O2 on 2L for entire session. Patient/caregiver is able to teach back 80% of instruction. [facility] [...] of care note* Visit Details Visit Type -COPY CHIEF Routine Visi t Discipline -Physical Therapy Problems [...] safety precautions Skilled intervention at next visit: COPY CHIEF plan to continue transfer trianing for increased safety and reduce risk for falls. Home Exercise Program Problem:Home Exercise Program Goal:Home Exercise Program Completed Patient reports: fair compliance Clinician taught: patient Clinician instructed on: COPY CHIEF reviews standing HEP with patient. Patient demos fair recall with technique and reports fair compliance with exercise program. Patient/caregiver is able to teach back 80% of instruction. Patient with O2 donned during therex at 2L, SPO2 levels still dropped to 79% during standing therex, COPY CHIEF provides cues again for PLB techniques, fair carryover, SPO2 levels returned to 93%+ by end of session. patient left in chair with O2 donned with spouse present Instruct Mobility Problem:Mobility Goal:Mobility Completed Patient reports: no falls Clinician taught: patient Clinician instructed on: COPY CHIEF provides skilled instruct for pateint to compelte STS t/f from chair with COPY CHIEF CGA during for safety, max verbal cues for proper technique and safety awareness to avoid a fall, patient with one major LOB requiring Wendy from COPY CHIEF to prevent fall, skilled instruct for patient to complete stair training with CGA and use of grab bars, patient with poor safety awareness as noted by impulsivity, O2 tubing too short to reach garage, doffed tubing, constant cues to patient for proper breathing techniques. COPY CHIEF provides skilled instruct for patient to complete car transfer training with COPY CHIEF providing demo for maximum safety, implemented wooden step to increase safety, spouse present for traiing with both patient and spouse report understanding on use of wooden step to increase safety. patient continues to demo impulsivity with all transfers and mobility, constant cues to correct. upon return to sit in chair, SPO2 levels 68%, immediately donned O2 and COPY CHIEF instructed patient to compelte PLB techniques, cues to continue these until SPO@ levels returned to 94%, O2 on 2L for entire session. Patient/caregiver is able to teach back 80% of instruction. [facility] Visit Details Visit Type -COPY CHIEF Routine Visi t Discipline -Physical Therapy Problems [...] 100% of instruction. documented [facility]* [...] risk of falls. [facility] [...] storage of oxygen. [facility] Visit Details Visit Type -COPY CHIEF Routine Visi t Discipline -Physical Therapy Problems [...] Clinician instructed on: d/t patient back pain, COPY CHIEF provides skilled instruct for patient to complete seated HEP instead of standing HEP to reduce pain, completed to increase activity tolerance for safe return to PLOF. Patient/caregiver is able to teach back 80% of instruction. Instruct Mobility Problem:Mobility Goal:Mobility Completed Patient reports: no falls Clinician taught: patient Clinician instructed on: COPY CHIEF provides skilled instruct for patient to complete gait training with FWW and COPY CHIEF S during for safety, to increase activity tolerance, patient SPO2 levels 84% on 2L O2, cues for proper breathing techniques during seated rest break with SPO2 levels rising to 95%. Patient/caregiver is able to teach back 80% of instruction. [facility] Visit Details [...] barrier paste applied. [facility] Visit Details Visit Type -COPY CHIEF Routine Visi t Discipline -Physical Therapy Problems [...] Clinician instructed on: d/t patient back pain, COPY CHIEF provides skilled instruct for patient to complete seated HEP instead of standing HEP to reduce pain, completed to increase activity tolerance for safe return to PLOF. Patient/caregiver is able to teach back 80% of instruction. Instruct Mobility Problem:Mobility Goal:Mobility Completed Patient reports: no falls Clinician taught: patient Clinician instructed on: COPY CHIEF provides skilled instruct for patient to complete gait training with FWW and COPY CHIEF S during for safety, to increase activity tolerance, patient SPO2 levels 84% on 2L O2, cues for proper breathing techniques during seated rest break with SPO2 levels rising to 95%. Patient/caregiver is able to teach back 80% of instruction. [facility] [...] barrier paste applied. documented [facility] Visit Details Visit Type -COPY CHIEF Routine Visi t Discipline -Physical Therapy Problems [...] 100% of instruction. documented [facility] Visit Details Visit Type -COPY CHIEF Routine Visi t Discipline -Physical Therapy Problems [...] 100% of instruction. [facility] Visit Details Visit Type -COPY CHIEF Routine Visi t Discipline -Physical Therapy Problems [...] reports: non compliance with hep and amb entrepreneurship program director taught: patient Clinician instructed on: Skilled observation [...] 100% of instruction. [facility] Visit [...] Care Plan Scheduled documented in this encounter [facility]'s home Plan of care [...] states he understands. [facility] Visit Details Visit Type -COPY CHIEF Routine Visi t Discipline -Physical Therapy Problems [...] reports: non compliance with hep and amb entrepreneurship program director taught: patient Clinician instructed on: Skilled observation [...] 100% of instruction. [facility] [...] relief education reinforced. documented [facility] [...] relief education reinforced. [facility] [...] Pt tolerated well. documented [facility] [...] Pt tolerated well. [facility] Visit Details Visit Type -BATTERY ASSEMBLER PLASTIC HH Missed Vi sit Discipline -Senior Care [...] and cleansing wound. [facility] [...] health or provider. documented [facility] [...] and cleansing wound. [facility] [...] health or provider. documented [facility]* [...] with wound education. documented [facility]* [...] with wound education. documented [facility]* [...] with wound education. documented [facility]* [...] with wound education. documented [facility]* [...] with wound education. documented [facility]* [...] with wound education. documented [facility]* [...] with wound education. documented [facility]* [...] with wound education. [facility] Visit [...] with wound education. [facility] Visit Details Visit Type -BATTERY ASSEMBLER PLASTIC Routine Discipline -Senior Care Problems Problem Start [...] health or provider. [facility] [...] Skin Problems Scheduled [facility] [...] with wound education. documented [facility]* [...] with wound education. [facility] Visit Details [...] with wound education. [facility] [...] [facility]* Actions spoke to hitesh pop, with dr blackman to report left side [...] he will see the patient in the merged [facility] wed and confirms patient will need to be drained by [facility] sometime documented [facility]* Actions left side area of concern be low insertion site picture taaken and uploaded into [employer]. message sent to Niurka BALTAZAR with dr [...] med review, messa ge sent to niurka latif and dr sparks regarding drainage amounts, orders [...] - 10 pleure x drains/dressing kits order #[id number] [facility]* Actions L pleurex drain - 350ml ambe r hazy R pleurex drain - 450ml yellow hazy [facility]* Actions Supplies ordered - 10 pleure x drains/dressing kits order #[id number] [facility] [...] supplies ordered - 10 kits - confirmation #[id number] [facility]* Actions KHOI pleurex drain catheters drained without issue.Pt tolerated well. L - 350ml hazy myra R - 450ml hazy yellow [facility]* Actions Pleurex supplies ordered\ Confirmation - #[id number] [facility]* Actions confirmation #[id number] - 10 pleurex drain sets [facility]* Actions confirmation #[id number] - 10 pleurex drain sets [facility]* Actions Pt is to start dialysis this Monday. As of now, it is planned that he runs 3x/day, M, W, F. [facility]* Actions #[id number] - order number 10 pleurex drains [facility]* Actions 10 pleurex drain kits ordere d - Confirmation #[id number] L drain - 350ml clear yellow noted [...] care. Call made to pt's PCP, Dr Stacy, for referral for hospice per pt/spouse request. is out of the office until monday. Nurse left a message for Dr Stacy to send a referral to home care/hospice [...] care. Call made to pt's PCP, Dr Stacy, for referral for hospice per pt/spouse request. is out of the office until next Monday. Nurse left a message for Dr Stacy to send a referral to home care/hospice [...] requesting no nursing visit next week with 'kayla collazo that he has set up. Next visit [...] his coccyx area. [facility]* Actions A picture of the pt's wound was take, and then wound care was performed. After the pt had donned his clothes and sat down, the picture was showed to him. While transfering the phone back, the [employer] catracho was accidently closed. This caused the [...] DINORAH visit. Return call received from Dr Stacy's office. A verbal order received for a DINORAH referral and Dr Stacy will follow for home care services. [facility] N[facility]ative* Auth/Cert Specialty Diagnoses / Procedures Referred By Contac t Referred To Contact Diagnoses Pleural effusion Bilateral pleural effusion Pleural effusion [J90] Bilateral pleural effusion [J90] Procedures ME INSERTION INDWELLING TUNNELED PLEURAL CATHETER RIGHT PLEUR X CATHETER PLACEMENT Referral ID Status Reason Start Date Expiration Date Visits Re quested Visits Authorized [id number] 1 1 [facility] Auth/Cert Specialty Diagnoses / Procedures Referred By Contac t Referred To Contact Referral ID Status Reason Start Date Expiration Date Visits Re quested Visits Authorized [id number] [facility] Auth/Cert Specialty Diagnoses / Procedures Referred By Contac t Referred To Contact Referral ID Status Reason Start Date Expiration Date Visits Re quested Visits Authorized [id number] 1 1 [facility] Auth/Cert Specialty Diagnoses / Procedures Referred By Contac t Referred To Contact Referral ID Status Reason Start Date Expiration Date Visits Re quested Visits Authorized [id number] 1 1 [facility] Auth/Cert Specialty Diagnoses / Procedures Referred By Contac t Referred To Contact Diagnoses Malignant neoplasm of ascending colon (HCC) Malignant neoplasm of ascending colon (HCC) [C18.2] Procedures ME COLECTOMY PRTL W/RMVL TERMINAL ILEUM & ILEOCOLOS Sherry George, DO [address] [place] [address] Referral ID Status Reason Start Date Expiration Date Visits Re quested Visits Authorized [id number] 04/11/2022 1 1 [facility] Assessments Diagnosis Coronary artery disease invo lving tonawanda coronary artery of ton[place]anda heart without angina pectoris - Primary Essential hypertension Unspecified essential hypertension Diagnosis Essential hypertension- Primary Unspecified essential hypertension Coronary artery disease involving [place] coronary artery of [place] heart without angina pectoris Dyspnea on exertion Other dyspnea and respiratory abnormality Ventricular tachycardia (paroxysmal) (HCC) Paroxysmal ventricular tachycardia Mixed hyperlipidemia Diagnosis Coronary artery disease involving ton[place] coronary artery of ton[place]anda heart without angina pectoris Essential hypertension Unspecified essential hypertension Ventricular tachycardia (paroxysmal) (HCC) Paroxysmal ventricular tachycardia Diagnosis Coronary artery disease involving tonawanda coronary artery of ton[place]anda heart without angina pectoris- Primary Mixed hyperlipidemia Chronic combined systolic and diastolic congestive heart failure (HCC) Essential hypertension Unspecified essential hypertension Diagnosis ELLIOTT (dyspnea on exertion) Other dyspnea and respiratory abnormality Diagnosis Therapeutic drug monitoring- Primary Encounter for therapeutic drug monitoring ELLIOTT (dyspnea on exertion) Other dyspnea and respiratory abnormality Essential hypertension Unspecified essential hypertension Coronary artery disease involving ton[place]anda coronary artery of ton[place]anda heart without angina pectoris MARCELO on CPAP [...] failure (HCC) Diagnosis Coronary artery disease involving ton[place]anda coronary artery of ton[place] heart without angina pectoris Chronic systolic congestive heart failure (HCC) Mixed hyperlipidemia Essential hypertension Unspecified essential hypertension Diagnosis Therapeutic drug monitoring Encounter for therapeutic drug monitoring Chronic systolic congestive heart failure (HCC) Diagnosis Therapeutic drug monitoring Encounter for therapeutic drug monitoring Chronic systolic heart failure (HCC) Chronic systolic heart failure Diagnosis Coronary artery disease involving ton[place]anda coronary artery of ton[place] heart without angina pectoris Diagnosis Chronic systolic congestive heart failure (HCC) Diagnosis medication management- Primary Encounter for therapeutic drug monitoring Chronic systolic congestive heart failure (HCC) Diagnosis Therapeutic drug monitoring- Primary Encounter for therapeutic drug monitoring Chronic systolic heart failure (HCC) Chronic systolic heart failure Diagnosis MARCELO on CPAP Essential hypertension Unspecified essential hypertension Coronary artery disease involving ton[place] coronary artery of ton[place]anda heart without angina pectoris Chronic systolic congestive heart failure (HCC) Diagnosis Therapeutic drug monitoring- Primary Encounter for therapeutic drug monitoring Chronic systolic congestive heart failure (HCC) Diagnosis Coronary artery disease involving tonawanda coronary artery of ton[place]anda heart without angina pectoris- Primary Mixed hyperlipidemia Chronic systolic congestive heart failure (HCC) Essential hypertension Unspecified essential hypertension 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) Reason for Referral Status Reason Specialty Diagnoses / Procedures Referred By Contact Referred To Contact Authorized Cardiology Diagnoses Coronary artery disease involving tonawanda coronary artery of tonawanda heart without angina pectoris Essential hypertension Ventricular tachycardia (paroxysmal) (HCC) Procedures Echocardiogram complete Lenin Ramirez MD [address] [facility] [address] [place] [address] Status Reason Specialty Diagnoses / Procedures Referred By Contact Referred To Contact Authorized Cardiology Diagnoses Coronary artery disease involving tonawanda coronary artery of ton[place]anda heart without angina pectoris Procedures ECG 12 lead Lenin Ramirez MD [address] [place] [address] Status Reason Specialty Diagnoses / Procedures Referre d By Contact Referred To Contact Closed Cardiology Diagnoses Coronary artery disease involving ton[place]anda coronary artery of ton[place]anda heart without angina pectoris Essential hypertension Ventricular tachycardia (paroxysmal) ([facility]) Procedures Echocardiogram complete Lenin Ramirez MD [address] [place] [address] Status Reason Specialty Diagnoses / Procedures Referre d By Contact Referred To Contact Closed Radiology Diagnoses ELLIOTT (dyspnea on exertion) Procedures NM Myocardial Perfusion Multiple SPECT Lenin Ramirez MD [address] [place] [address] Status Reason Specialty Diagnoses / Procedures Referred By Contact Referred To Contact Pending Review Cardiology Diagnoses ELLIOTT (dyspnea on exertion) Procedures Echocardiogram complete Park Hawk CNP [address] [place] [address] Status Reason Specialty Diagnoses / Procedures Referred By Contact Referred To Contact Authorized Diagnoses Therapeutic drug monitoring Park Hawk CNP [address] [place] [address] [facility] [address] [place] [address] Status Reason Specialty Diagnoses / Procedures Referre d By Contact Referred To Contact Closed Cardiology Diagnoses ELLIOTT (dyspnea on exertion) Procedures Echocardiogram complete Park Hawk CNP [address] [id number] Specialty Diagnoses / Procedures Referred By Contac t Referred To Contact Cardiology Diagnoses PAF (paroxysmal atrial fibrillation) (HCC) Procedures ECG 12 lead Park Hawk CNP [address] [place] [address] Referral ID Status Reason Start Date Expiration Date V isits Requested Visits Authorized [id number] Pending Review 10/26/2020 10/26/2021 1 1 Referral ID Status Reason Start Date Expiration Date V isits Requested Visits Authorized [id number] Authorized 10/26/2020 10/26/2021 1 1 Specialty Diagnoses / Procedures Referred By Contac t Referred To Contact Radiology Diagnoses Pleural effusion Procedures CT Guided Thoracentesis Park Hawk, ANIMAL SHELTER MANAGER [address] [id number] Referral ID Status Reason Start Date Expiration Date V isits Requested Visits Authorized [id number] New Request 10/26/2020 10/26/2021 1 1 Specialty Diagnoses / Procedures Referred By Contac t Referred To Contact Cardiology Diagnoses S/P CABG (coronary artery bypass graft) PAF (paroxysmal atrial fibrillation) (HCC) Chronic systolic congestive heart failure (HCC) Coronary artery disease involving tonawanda coronary artery of tonawanda heart without angina pectoris Essential hypertension Procedures Echocardiogram complete Lenin Ramirez MD [address] [address] Referral ID Status Reason Start Date Expiration Date V isits Requested Visits Authorized [id number] Pending Review 01/17/2021 01/17/2022 1 1 Specialty Diagnoses / Procedures Referred By Contac t Referred To Contact Radiology Diagnoses Pleural effusion Procedures CT Chest Without Contrast Jalil Sparks MD [address] [facility] [address] [place] [address] Referral ID Status Reason Start Date Expiration Date V isits Requested Visits Authorized [id number] Authorized 01/12/2021 01/12/2022 1 1 Specialty Diagnoses / Procedures Referred By Contac t Referred To Contact Cardiology Diagnoses PAF (paroxysmal atrial fibrillation) (HCC) Procedures ECG 12 Lead Lenin Ramirez MD [address] [facility] [address] [place] [address] Referral ID Status Reason Start Date Expiration Date V isits Requested Visits Authorized [id number] Pending Review 06/09/2021 06/09/2022 4 4 Specialty Diagnoses / Procedures Referred By Contac t Referred To Contact Home Health Services Diagnoses Sepsis, due to unspecified organism, unspecified whether acute organ dysfunction present (HCC) Other pneumonia, unspecified organism Jalil Sparks MD [address] [facility] [address] [place] [address] [address] Referral ID Status Reason Start Date Expiration Date V isits Requested Visits Authorized [id number] Authorized 07/05/2021 07/05/2022 1 1 Specialty Diagnoses / Procedures Referred By Contac t Referred To Contact Home Health Services Diagnoses Chronic systolic congestive heart failure (HCC) Coronary artery disease involving tonawanda coronary artery of tonawanda heart without angina pectoris Dyspnea on exertion Generalized weakness Lenin Ramirez MD [address] [facility] [address] [place] [address] Referral ID Status Reason Start Date Expiration Date Visits Requested Visits Authorized [id number] Authorized Specialty Services Required/[facility] 08/17/2021 08/17/2022 1 1 Specialty Diagnoses / Procedures Referred By Contac t Referred To Contact Cardiology Diagnoses Coronary artery disease involving tonawanda coronary artery of tonawanda heart without angina pectoris Chronic systolic congestive heart failure (HCC) Procedures Echocardiogram limited Lenin Ramirez MD [address] [facility] [address] [place] [address] Referral ID Status Reason Start Date Expiration Date V isits Requested Visits Authorized [id number] New Request 11/17/2021 11/17/2022 1 1 Specialty Diagnoses / Procedures Referred By Contac t Referred To Contact General Surgery Diagnoses Adenocarcinoma (HCC) System, Provider Not In Sherry George DO [address] [facility] [address] [place] [address] Referral ID Status Reason Start Date Expiration Date V isits Requested Visits Authorized [id number] Authorized 03/23/2022 03/23/2023 1 1 Referral ID Status Reason Start Date Expiration Date V isits Requested Visits Authorized [id number] Pending Review 08/26/2022 08/26/2023 10 10 Specialty Diagnoses / Procedures Referred By Contac t Referred To Contact Radiology Diagnoses Elevated CEA Malignant neoplasm of ascending colon (HCC) Procedures CT Chest Abdomen Pelvis With Contrast Sherry George, DO [address] [place] [address] Referral ID Status Reason Start Date Expiration Date V isits Requested Visits Authorized [id number] Pending Review 11/28/2022 11/28/2023 1 1 Specialty Diagnoses / Procedures Referred By Contac t Referred To Contact Home Health Services Diagnoses Malignant neoplasm of ascending colon (HCC) PAF (paroxysmal atrial fibrillation) (HCC) ESRD on dialysis (HCC) Cellulitis of other specified site Cellulitis of perineum Zack Stacy MD [address] [place] [address] [address] Referral ID Status Reason Start Date Expiration Date V isits Requested Visits Authorized [id number] Authorized 11/29/2022 11/29/2023 1 1 Referral ID Status Reason Start Date Expiration Date V isits Requested Visits Authorized [id number] New Request 03/08/2023 03/07/2024 1 1 History [...] effusions and is scheduled to see a adventure therapist next week. He deniesany fever or chills, [...] left IVCD. Assessment/Plan: Coronary artery disease involving tonawanda coronary artery of tonawanda heart without angina pectoris As ischemic status [...] concerning. He is scheduled to see a adventure therapist next week to have this evaluated further. [...] reasonably well following his recent hospitalization in [place] for fluid overload. He was diuresed nearly 10 pounds with a marked improvement in his edema and a mild improvement in his exertional dyspnea. He did have a visit with the adventure therapist and is scheduled to undergo testing within [...] daily . Assessment/Plan: Coronary artery disease involving tonawanda coronary artery of tonawanda heart without angina pectoris Ed continues doing [...] patient is not nervous/anxious. in this encounter* Carine Parkdon Macias, ANIMAL SHELTER MANAGER - 07/26/2018 10:44 AM EDT [facility] [address] [facility] OFFICE [address] [facility] [address] Assessment & Plan: Essential hypertension B/P above goal 152/78, 163/72. Monitors B/P at home almost daily and states has noticed a trend in increasing B/P. Current medications include: Lopressor 25 mg daily, Exforge 5-320 mg daily. Will plan on making medication adjustments relative to decreased EF and continue to monitor B/P closely. Coronary artery disease involving tonawanda coronary artery of tonawanda heart without angina pectoris Long-standing CAD with Hx [place] in 2005 Cath 2015: Discrete 40% proximal [...] pillow. I suggested that he contact the [employer] to discuss other device options to improve his comfort and compliance. CHF (congestive heart failure) (HCC) Hospitalized at [facility] earlier this year with successful diuresis. Known CKD, stage 3 and follows with Nephrology, Dr. Christiansen, in [place]. Recent stress testing revealed substantial decline in EF. Ed states he does have ELLIOTT, now with moderate exertion, it has improved from the ELLIOTT he was experiencing with minimal exertion. Ed continues to have bilateral lower leg edema which improves overnight and increases as his day goes on. He is wearing compression stockings daily. 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 Orders Placed This Encounter [...] year with an acute HF episode at [facility]. After diuresis the symptoms of ELLIOTT with mild exertion improved. He continues to have ELLIOTT with moderate exertion and bilateral lower leg edema persists. He denies chest pain/pressure, orthopnea, PND, palpitations, lightheadedness, syncope or near-syncopal episodes. Histories: Past Medical History: Diagnosis Date Abnormal stress test Arthritis Chest pain CHF (congestive heart failure) (HCC) Chronic kidney disease COPD (chronic obstructive pulmonary disease) (HCC) 03/2018 Coronary artery disease Hyperlipidemia Hypertension Myocardial infarction (HCC) MARCELO on CPAP 2018 SOB (shortness of breath) Past Surgical History: Procedure Laterality Date CARDIAC CATHETERIZATION N/A 08/11/2014 Procedure: Left Heart Cath Possible PTCA/Stent; Surgeon: Lenin Ramirez MD; [place] [facility]; Service: CARDIAC CATHETERIZATION Right 12/31/2014 Procedure: Left Heart Cath Possible PTCA/Stent; Surgeon: Ranulfo Cobb MD; [place]: [facility]; Service: CARDIAC CATHETERIZATION 08/11/2014 EF: 55% CARDIAC [...] in about 3 weeks (around 08/16/2018) for HIDE COOKING OPERATOR visit. Park Hawk CNP * Maritza [...] EDT Heart Disease Management Nurse Progress Note [facility] OFFICE 08/03/18 Minh Askewrich 1945 Congestive Heart Failure (HFC [...] EDT Heart Disease Management Nurse Progress Note [facility] OFFICE 08/10/18 Minh Gonzalez 1945 Congestive Heart Failure (HC [...] EDT Heart Disease Management Nurse Progress Note [facility] OFFICE 08/31/18 Minh Gonzalez 1945 Congestive Heart Failure (HFC) Minh Gonzalez is a 73 y.o. year-old male seen today in the [facility] for evaluation. He complains of less Sob Last echo date: 04/2018, stress 07/20/18 Ejection fraction: 39-40% Physician Communication: Park Hawk HIDE COOKING OPERATOR ordered Ed to decrease Aldactone to 12.5 [...] EDT Heart Disease Management Nurse Progress Note [facility] 09/21/18 Minh Corbin Lisa 1945 Congestive Heart Failure [...] as well. Will check blood work today. Ed is tolerating the mid dose of Entresto [...] EDT Heart Disease Management Nurse Progress Note [facility] OFFICE 10/12/18 Minh Gonzalez 1945 Congestive Heart [...] EDT Pre Auth has been approved by [facility] for Entresto 49 mg/51 mg. Pharmacy notified (Ligia Tillman) documented in this encounter* Leonila Walls RN - 11/09/2018 10:34 AM EDT Heart Disease Management Nurse Progress Note [facility] OFFICE 11/09/18 Minh Corbin Lisa 1945 Congestive Heart Failure [...] EDT Heart Disease Management Nurse Progress Note [facility] OFFICE 12/31/18 Minh Corbin Lisa 1945 Congestive Heart Failure [...] Slight limitation of physical activity. Lab Drawn: [facility] today Assessment & Plan Minh was [...] productive cough but will be seeing his Rn Family next week. Diagnoses and all orders for [...] day . Assessment/Plan: Coronary artery disease involving tonawanda coronary artery of tonawanda heart without angina pectoris He continues doing [...] EST Heart Disease Management Nurse Progress Note [facility] OFFICE 03/25/19 Minh Gonzalez 1945 Congestive Heart [...] EDT Heart Disease Management Nurse Progress Note [facility] OFFICE 05/24/19 Minh Gonzalez 1945 Congestive Heart Failure (HFC [...] EDT Heart Disease Management Nurse Progress Note [facility] OFFICE 07/31/19 Minh Limtristen 1945 Congestive Heart [...] EDT Heart Disease Management Nurse Progress Note [facility] OFFICE 09/09/19 Minh Gonzalez 1945 Congestive Heart [...] 10/01/2019 9:05 AM EDT Application faxed to [employer] Patient assistance. FAX: [phone] documented in this encounter* Leonila Walls RN - 11/04/2019 12:10 PM EDT Heart Disease Management Nurse Progress Note [facility] OFFICE 11/04/19 Minh Gonzalez 1945 Congestive Heart Failure (HFC [...] EDT Heart Disease Management Nurse Progress Note [facility] OFFICE 12/23/19 Minh Gonzalez 1945 Congestive Heart [...] EST Heart Disease Management Nurse Progress Note [facility] OFFICE 02/17/20 Minh Corbin Lisa 1945 Congestive Heart Failure [...] Lasix for him. He is following a Protective Services Officer in [place] who was happy with his numbers last week. Ed said he will see his Rn Family next week. BP stable at home. His [...] EST Heart Disease Management Nurse Progress Note [facility] OFFICE 01/28/19 Minh Limtristen 1945 Congestive Heart Failure (HFC [...] productive cough in the morning but his Rn Family does not want to start any inhalers [...] letter completed. documented in this encounter* Park Hawk CNP - 09/05/2018 11:57 AM EDT [facility] [address] [facility] OFFICE [address] [facility] [phone] Assessment & Plan: MARCELO on CPAP Using [...] quite bothersome diarrhea. Coronary artery disease involving tonawanda coronary artery of tonawanda heart without angina pectoris Long-standing CAD with [...] breathing difficulty. 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 [...] pain CHF (congestive heart failure) ([facility]) Chronic kidney disease COPD (chronic obstructive pulmonary disease) ([facility]) 03/2018 Coronary artery disease Hyperlipidemia Hypertension Myocardial infarction ([facility]) MARCELO on CPAP 2018 SOB (shortness of breath) Past Surgical History: Procedure Laterality Date CARDIAC CATHETERIZATION N/A 08/11/2014 Procedure: Left Heart Cath Possible PTCA/Stent; Surgeon: Lenin Ramirez MD; [place] [facility]; Service: CARDIAC CATHETERIZATION Right 12/31/2014 Procedure: Left Heart Cath Possible PTCA/Stent; Surgeon: Ranulfo Cobb MD; [facility]: [facility]; Service: CARDIAC CATHETERIZATION 08/11/2014 EF: 55% CARDIAC [...] EST Heart Disease Management Nurse Progress Note [facility] OFFICE 04/20/20 Minh Gonzalez 1945 Congestive Heart Failure (HFC [...] EDT Heart Disease Management Nurse Progress Note [facility] OFFICE 11/30/18 Minh Emerald Gonzalez 1945 Congestive Heart Failure (HFC visit) [...] some increase in edema, states he had azerbaijani last night. Ed states he has no [...] AM EST Telephone Visit Via Phone Call [facility] [place] [address] [facility] [phone] Telephone Visit [facility] 03/26/2020 Lenin Ramirez MD Provider Location: [place] Patient Location Enterprise Security Architect: None Patient Location: Patient's Home Patient: Minh Gonzalez Date of : 1945 (74 y.o. male) PCP: Zack Stacy MD I discussed risks, benefits and alternatives [...] there are inherent diagnostic limitations compared to [id number] evaluations. We elected toproceed with the telephone [...] were made today. Coronary artery disease involving tonawanda coronary artery of tonawanda heart without angina pectoris - Primary He has no angina no other symptoms suggestive of progressive ischemic disease. Relevant Medications rosuvastatin (Crestor) 10 MG tablet carvediloL (COREG) 25 MG tablet CHF (congestive heart failure) ([facility]) I am extremely pleased with how well [...] EDT Heart Disease Management Nurse Progress Note [facility] OFFICE 06/19/20 Minh Gonzalez 1945 Congestive Heart [...] Will continue to monitor kidneys through his Protective Services Officer. Diagnoses and all orders for this visit: [...] Documents on File Type Date Recorded Patient Assisted Living Associate Expl anation Advance Directives and Livin g Will Advance Directives and Livin g Will 05/04/2018 12:00 AM Documents on File Type Date Recorded Patient Assisted Living Associate Expl anation Advance Directives and Livin g Will Advance Directives and Livin g Will 05/04/2018 12:00 AM Documents on File Type Date Recorded Patient Assisted Living Associate Expl anation Advance Directives and Livin g [...] Documents on File Type Date Recorded Patient Assisted Living Associate Expl anation Advance Directives and Livin g [...] Documents on File Type Date Recorded Patient Assisted Living Associate Expl anation Advance Directives and Livin g Will Advance Directives and Livin g Will 10/26/2020 9:39 AM Documents on File Type Date Recorded Patient Assisted Living Associate Expl anation Advance Directives and Livin g Will Advance Directives and Livin g Will 11/23/2020 2:00 PM Documents on File Type Date Recorded Patient Assisted Living Associate Expl anation Advance Directives and Livin g Will Advance Directives and Livin g Will 11/23/2020 2:00 PM Documents on File Type Date Recorded Patient Assisted Living Associate Expl anation Advance Directives and Livin g Will Advance Directives and Livin g Will 01/13/2021 2:47 PM Documents on File Type Date Recorded Patient Assisted Living Associate Expl anation Advance Directives and Livin g Will Advance Directives and Livin g Will 01/13/2021 2:47 PM Documents on File Type Date Recorded Patient Assisted Living Associate Expl anation Advance Directives and Livin g [...] Documents on File Type Date Recorded Patient Assisted Living Associate Expl anation Advance Directives and Livin g Will Advance Directives and Livin g Will 01/18/2021 2:47 PM Latest Code Status on File Code Status Date Activated Date Inactivated Comments Full Code 01/18/2021 9:08 AM 01/19/2021 5:39 PM Full Code 09/04/2020 1:22 PM 09/10/2020 1:54 PM Documents on File Type Date Recorded Patient Assisted Living Associate Expl anation Advance Directives and Livin g Will Advance Directives and Livin g Will 02/03/2021 2:47 PM Documents on File Type Date Recorded Patient Assisted Living Associate Expl anation Advance Directives and Livin g Will Advance Directives and Livin g Will 02/03/2021 2:47 PM Documents on File Type Date Recorded Patient Assisted Living Associate Expl anation Advance Directives and Living Will Advance Directives and Living Will 02/22/2021 2:47 PM NO COPY IN SOARIAN Documents on File Type Date Recorded Patient Assisted Living Associate Expl anation Advance Directives and Living Will [...] Documents on File Type Date Recorded Patient Assisted Living Associate Expl anation Power of Collar Baster Jumpbasting Latest Code Status on File Code Status [...] Documents on File Type Date Recorded Patient Assisted Living Associate Expl anation Power of Collar Baster Jumpbasting Latest Code Status on File Code Status [...] Closed Cardiology Diagnoses Coronary artery disease involving ton[place] coronary artery of ton[place] heart without angina pectoris Essential hypertension Ventricular tachycardia (paroxysmal) (HCC) Procedures Echocardiogram complete Lenin Ramirez MD [address] [id number] Reason Comments Follow-up s/p d/c [facility]. new ons et CHF Medication Management pt is to start Exf orge 5/320 mg tablet. 1 tablet PO QD Status Reason Specialty Diagnoses / Procedures Referre d By Contact Referred To Contact Closed Radiology Diagnoses ELLIOTT (dyspnea on exertion) Procedures NM Myocardial Perfusion Multiple SPECT Lenin Ramirez MD [address] [address] Reason Comments Follow-up abn SPECT. Hypertension pt [...] on exertion) Procedures Echocardiogram complete Park Hawk, ANIMAL SHELTER MANAGER [address] [facility] [address] [place] [address] Reason Comments Follow-up 6 mo f/u. no [...] work Specialty Diagnoses / Procedures Referred By Alisson t Referred To Contact Cardiothoracic Surgery Diagnoses Bilateral pleural effusion Park Hawk, ANIMAL SHELTER MANAGER [address] [place] [address] Michael Quinn MD [address] [facility] [address] [place] [address] Referral ID Status Reason Start Date Expiration Date V isits Requested Visits Authorized [id number] Closed Specialty Services Required/Khalida ent's Best Interest [...] (HCC) System, Provider Not In Sherry George, [address] [place] [address] Referral ID Status Reason Start Date Expiration Date Visits Re quested Visits Authorized [id number] Closed 03/23/2022 03/23/2023 1 1 Reason Comments Fatigue Specialty Diagnoses / Procedures Referred By Alisson gallegos Referred To Contact Referral ID Status Reason Start Date Expiration Date Visits Re quested Visits Authorized [id number] 1 1 Reason Comments Medication Refill Reason [...] concerning. He is scheduled to see a adventure therapist next week to have this evaluated further. [...] today. Associated Problem(s): Coronary artery disease involving ton[place]anda coronary artery of ton[place] heart without angina pectoris As ischemic status [...] weeks. Associated Problem(s): Coronary artery disease involving ton[place]anda coronary artery of [place] heart without angina pectoris Ed continues doing well from an ischemic standpoint with no angina no EKG evidence of disease progression. I made no changes in his regimen today. in this encounter Associated Problem(s): CHF (congestive heart failure) (HCC) Hospitalized at [facility] earlier this year with successful diuresis. Known CKD, stage 3 and follows with Nephrology, Dr. Christiansen, in [place]. Recent stress testing revealed substantial decline in EF. Ed states he does have ELLIOTT, now with moderate exertion, it has improved from the ELLIOTT he was experiencing with minimal exertion. Ed continues to have bilateral lower leg edema which improves overnight and increases as his day goes on. He is wearing compression stockings daily. 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 Associated Problem(s): MARCELO on CPAP Currently using CPAP. States is struggling to adjust to the device. Is using a nasal pillow. I suggested that he contact the [employer] company to discuss other device options to improve his comfort and compliance. Associated Problem(s): Coronary artery disease involving ton[place]anda coronary artery of ton[place]anda heart without angina pectoris Long-standing CAD with Hx [place] in 2006 Cath 2015: Discrete 40% proximal lesion in [...] medicines. Associated Problem(s): Coronary artery disease involving ton[place]anda coronary artery of ton[place]anda heart without angina pectoris He continues doing [...] breathing difficulty. 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 Associated Problem(s): Coronary artery disease involving tonawanda coronary artery of ton[place]anda heart without angina pectoris Long-standing CAD with [...] basis. Associated Problem(s): Coronary artery disease involving tonawanda coronary artery of tonawanda heart without angina pectoris He has no [...] DATE CREATED AUTHOR AUTHOR'S ORGANIZ ATION 08/07/2020 [facility] DATE CREATED AUTHOR AUTHOR'S ORGANIZ ATION 05/08/2021 [facility] DATE CREATED AUTHOR AUTHOR'S ORGANIZ ATION 05/23/2021 [facility] DATE CREATED AUTHOR AUTHOR'S ORGANIZ ATION 08/06/2021 [facility] DATE CREATED AUTHOR AUTHOR'S ORGANIZ ATION 11/24/2021 [facility] DATE CREATED AUTHOR AUTHOR'S ORGANIZ ATION 05/01/2022 [facility] DATE CREATED AUTHOR AUTHOR'S ORGANIZ ATION 12/01/2022 [facility] DATE CREATED AUTHOR AUTHOR'S ORGANIZ ATION 12/04/2022 [facility] DATE CREATED AUTHOR AUTHOR'S ORGANIZ ATION 03/23/2023 [facility] DATE CREATED AUTHOR AUTHOR'S ORGANIZ ATION 03/26/2023 [facility] Care Teams (unrecognized sec tion and content) Chef Under Relationship Specialty Start Date End Date Zack Stacy MD [address] [place] [address] PCP - General Family Medicine 08/11/14 Chef Under Relationship Specialty Start Date End Date Zack Stacy MD [address] [place] [address] PCP - General Family Medicine 08/11/14 Chef Under Relationship Specialty Start Date End Date Zack Stacy MD [address] [place] [address] PCP - General Family Medicine 08/11/14 Chef Under Relationship Specialty Start Date End Date Zack Stacy MD [address] [place] [address] 13677 PCP - General Family Medicine 08/11/14 Chef Under Relationship Specialty Start Date End Date Zack Stacy MD [address] [place] [address] 59961 PCP - General Family Medicine 08/11/14 Chef Under Relationship Specialty Start Date End Date Zack Stacy MD [address] [place] [address] 54934 PCP - General Family Medicine 08/11/14 Chef Under Relationship Specialty Start Date End Date Zack Stacy MD [address] [place] [address] 0[address]84 PCP - General Family Medicine 08/11/14 Chef Under Relationship Specialty Start Date End Date Zack Stacy MD [address] [place] [address] 41384 PCP - General Family Medicine 08/11/14 Chef Under Relationship Specialty Start Date End Date Zack Stacy MD [address] [place] [address] 36863 PCP - General Family Medicine 08/11/14 Chef Under Relationship Specialty Start Date End Date Zack Stacy MD [address] [place] [address] 70727 PCP - General Family Medicine 08/11/14 Chef Under Relationship Specialty Start Date End Date Zack Stacy MD [address] [place] [address] 02388 PCP - General Family Medicine 08/11/14 Chef Under Relationship Specialty Start Date End Date Zack Stacy MD [address] [place] [address] 85280 PCP - General Family Medicine 08/11/14 Chef Under Relationship Specialty Start Date End Date Zack Stacy MD [address] [place] [address] 05274 PCP - General Family Medicine 08/11/14 Chef Under Relationship Specialty Start Date End Date Zack Stacy MD [address] [place] [address] 23763 PCP - General Family Medicine 08/11/14 Chef Under Relationship Specialty Start Date End Date Zack Stacy MD [address] [place] [address] 45694 PCP - General Family Medicine 08/11/14 Chef Under Relationship Specialty Start Date End Date Zack Stacy MD [address] [place] [address] 20534 PCP - General Family Medicine 08/11/14 Chef Under Relationship Specialty Start Date End Date Zack Stacy MD [address] [place] [address] 12237 PCP - General Family Medicine 08/11/14 Chef Under Relationship Specialty Start Date End Date Zack Stacy MD [address] [place] [address] 68575 PCP - General Family Medicine 08/11/14 Chef Under Relationship Specialty Start Date End Date Zack Stacy MD [address] [place] [address] 46430 PCP - General Family Medicine 08/11/14 Chef Under Relationship Specialty Start Date End Date Zack Stacy MD [address] [place] [address] 30923 PCP - General Family Medicine 08/11/14 Chef Under Relationship Specialty Start Date End Date Zack Stacy MD [address] [place] [address] 61854 PCP - General Family Medicine 08/11/14 Chef Under Relationship Specialty Start Date End Date Zack Stacy MD [address] [place] [address] 30500 PCP - General Family Medicine 08/11/14 Chef Under Relationship Specialty Start Date End Date Zack Stacy MD [address] [place] [address] 88557 PCP - General Family Medicine 08/11/14 Chef Under Relationship Specialty Start Date End Date Zack Stacy MD [address] [place] [address] 00295 PCP - General Family Medicine 08/11/14 Chef Under Relationship Specialty Start Date End Date Zack Stacy MD [address] [place] [address] PCP - General Family Medicine 08/11/14 Chef Under Relationship Specialty Start Date End Date Zack Stacy MD [address] [place] [address] 30164 PCP - General Family Medicine 08/11/14 Chef Under Relationship Specialty Start Date End Date Zack Stacy MD [address] [place] [address] 13124 PCP - General Family Medicine 08/11/14 Chef Under Relationship Specialty Start Date End Date Zack Stacy MD [address] [place] [address] 65452 PCP - General Family Medicine 08/11/14 Chef Under Relationship Specialty Start Date End Date Zack Stacy MD [address] [place] [address] 8[address] PCP - General Family Medicine 08/11/14 Chef Under Relationship Specialty Start Date End Date Zack Stacy MD [address] [place] [address] 65856 PCP - General Family Medicine 08/11/14 Chef Under Relationship Specialty Start Date End Date Zack Stacy MD [address] [place] [address] 22203 PCP - General Family Medicine 08/11/14 Chef Under Relationship Specialty Start Date End Date Zack Stacy MD [address] [place] [address] 03202 PCP - General Family Medicine 08/11/14 Анрдей Pizano MD [address] [facility] [place] [id number] [place] [address] Referring Physician General Surgery 03/22/22 Chef Under Relationship Specialty Start Date End Date Zack Stacy MD [address] [place] [address] 85283 PCP - General Family Medicine 08/11/14 Lenin Ramirez MD [address] [place] [address] Consulting Physician Interventional Cardiology 04/06/22 Sherry George DO [address] [place], [place] [id number] Consulting Physician General Surgery 04/06/22 Андрей Pizano MD [address] [facility] [place] [id number] [place] [address] Referring Physician General Surgery 03/22/22 Chef Under Relationship Specialty Start Date End Date Zack Stacy MD [address] [place] [address] PCP - General Family Medicine 08/11/14 Lenin Ramirez MD [address] [place] [address] Consulting Physician Interventional Cardiology 04/06/22 Sherry George DO [address] [place] [address] Consulting Physician General Surgery 04/06/22 Андрей Pizano MD [address] [facility] [place] [id number] [place] [address] Referring Physician General Surgery 03/22/22 Chef Under Relationship Specialty Start Date End Date Zack Stacy MD [address] [place] [address] PCP - General Family Medicine 08/11/14 Lenin Ramirez MD [address] [place] [address] Consulting Physician Interventional Cardiology 04/06/22 Sherry George DO [address] [place] [address] Consulting Physician General Surgery 04/06/22 Андрей Pizano MD [address] [facility] [place] [id number] [place] [address] Referring Physician General Surgery 03/22/22 Chef Under Relationship Specialty Start Date End Date Zack Stacy MD [address] [place] [address] PCP - General Family Medicine 08/11/14 Lenin Ramirez MD [address] [place] [address] Consulting Physician Interventional Cardiology 04/06/22 Sherry George DO [address] [place] [address] Consulting Physician General Surgery 04/06/22 Андрей Pizano MD [address] [facility] [place] [id number] [place] [address] Referring Physician General Surgery 03/22/22 Chef Under Relationship Specialty Start Date End Date Zack Stacy MD [address] [place] [address] PCP - General Family Medicine 08/11/14 Lenin Ramirez MD [address] [place] [address] Consulting Physician Interventional Cardiology 04/06/22 Sherry George DO [address] [place] [address] Consulting Physician General Surgery 04/06/22 Андрей Pizano MD [address] [facility] [place] [id number] [place] [address] Referring Physician General Surgery 03/22/22 Chef Under Relationship Specialty Start Date End Date Zack Stacy MD [address] [place] [address] PCP - General Family Medicine 08/11/14 Lenin Ramirez MD [address] [place] [address] Consulting Physician Interventional Cardiology 04/06/22 Sherry George DO [address] [place] [address] Consulting Physician General Surgery 04/06/22 Андрей Pizano MD [address] [facility] [place] [id number] [place] [address] Referring Physician General Surgery 03/22/22 Chef Under Relationship Specialty Start Date End Date Zack Stacy MD [address] [place], [place] [id number] PCP - General Family Medicine 08/11/14 Lenin Ramirez MD [address] [place] [address] Consulting Physician Interventional Cardiology 04/06/22 Sherry George DO [address] [place] [address] Consulting Physician General Surgery 04/06/22 Андрей Pizano MD [address] [facility] [place] [id number] [place] [address] Referring Physician General Surgery 03/22/22 Chef Under Relationship Specialty Start Date End Date Zack Stacy MD [address] [place], [place] 183634 PCP - General Family Medicine 08/11/14 Lenin Ramirez MD [address] [place] [address] Consulting Physician Interventional Cardiology 04/06/22 Sherry George, DO [address] [place] [address] Consulting Physician General Surgery 04/06/22 Андрей Pizano MD [address] [facility] [place] [id number] [place] [address] Referring Physician General Surgery 03/22/22 Chef Under Relationship Specialty Start Date End Date Zack Stacy MD [address] [place], [place] 489654 PCP - General Family Medicine 08/11/14 Lenin Ramirez MD [address] [place] [address] Consulting Physician Interventional Cardiology 04/06/22 Sherry George DO [address] [place] [address] Consulting Physician General Surgery 04/06/22 Андрей Pizano MD [address] [facility] [place] [id number] [place] [address] Referring Physician General Surgery 03/22/22 Chef Under Relationship Specialty Start Date End Date Zack Stacy MD [address] [place] [address] PCP - General Family Medicine 08/11/14 Leinn Ramirez MD [address] [place] [address] Consulting Physician Interventional Cardiology 04/06/22 Sherry George DO [address] [place] [address] Consulting Physician General Surgery 04/06/22 Андрей Pizano MD [address] [facility] [place] [id number] [place] [address] Referring Physician General Surgery 03/22/22 Chef Under Relationship Specialty Start Date End Date Zack Stacy MD [address] [place] [address] PCP - General Family Medicine 08/11/14 Lenin Ramirez MD [address] [place] [address] Consulting Physician Interventional Cardiology 04/06/22 Sherry George DO [address] [place] [address] Consulting Physician General Surgery 04/06/22 Андрей Pizano MD [address] [facility] [place] [id number] [place] [address] Referring Physician General Surgery 03/22/22 Chef Under Relationship Specialty Start Date End Date Zack Stacy MD [address] [place] [address] PCP - General Family Medicine 08/11/14 Lenin Ramirez MD [address] [place] [address] Consulting Physician Interventional Cardiology 04/06/22 Sherry George DO [address] [place] [address] Consulting Physician General Surgery 04/06/22 Андрей Pizano MD [address] [facility] [place] [id number] [place] [address] Referring Physician General Surgery 03/22/22 Chef Under Relationship Specialty Start Date End Date Zack Stacy MD [address] [place] [address] PCP - General Family Medicine 08/11/14 Lenin Ramirez MD [address] [place] [address] Consulting Physician Interventional Cardiology 04/06/22 Sherry George DO [address] [place] [address] Consulting Physician General Surgery 04/06/22 Андрей Pizano MD [address] [facility] [place] [id number] [place] [address] Referring Physician General Surgery 03/22/22 Chef Under Relationship Specialty Start Date End Date Zack Stacy MD [address] [place] [address] PCP - General Family Medicine 08/11/14 Lenin Ramirez MD [address] [place] [address] Consulting Physician Interventional Cardiology 04/06/22 Sherry George DO [address] [place] [address] Consulting Physician General Surgery 04/06/22 Андрей Pizano MD [address] [facility] [place] [id number] [place] [address] Referring Physician General Surgery 03/22/22 Chef Under Relationship Specialty Start Date End Date Zack Stacy MD [address] [place] [address] PCP - General Family Medicine 08/11/14 Lenin Ramirez MD [address] [place] [address] Consulting Physician Interventional Cardiology 04/06/22 Sherry George, [address] [place] [address] Consulting Physician General Surgery 04/06/22 Андрей Pizano MD [address] [facility] [place] [id number] [place] [address] Referring Physician General Surgery 03/22/22 Chef Under Relationship Specialty Start Date End Date Zack Stacy MD [address] [place] [address] PCP - General Family Medicine 08/11/14 Lenin Ramirez MD [address] [facility] [address] [place] [address] Consulting Physician Interventional Cardiology 04/06/22 Sherry George DO [address] [place] [address] Consulting Physician General Surgery 04/06/22 Андрей Pizano MD [address] [facility] [place] [id number] [place] [address] Referring Physician General Surgery 03/22/22 Chef Under Relationship Specialty Start Date End Date Zack Stacy MD [address] [place] [address] PCP - General Family Medicine 08/11/14 Lenin Ramirez MD [address] [place] [address] Consulting Physician Interventional Cardiology 04/06/22 Sherry George DO [address] [place] [address] Consulting Physician General Surgery 04/06/22 Андрей Pizano MD [address] [facility] [place] [id number] [place] [address] Referring Physician General Surgery 03/22/22 Chef Under Relationship Specialty Start Date End Date Zack Stacy MD [address] [place] [address] PCP - General Family Medicine 08/11/14 Lenin Ramirez MD [address] [place] [address] Consulting Physician Interventional Cardiology 04/06/22 Sherry George DO [address] [place] [address] Consulting Physician General Surgery 04/06/22 Андрей Pizano MD [address] [facility] [place] [id number] [place] [address] Referring Physician General Surgery 03/22/22 Chef Under Relationship Specialty Start Date End Date Zack Stacy MD [address] [place] [address] PCP - General Family Medicine 08/11/14 Lenin Ramirez MD [address] [place] [address] Consulting Physician Interventional Cardiology 04/06/22 Sherry George DO [address] [place] [address] Consulting Physician General Surgery 04/06/22 Андрей Pizano MD [address] [facility] [place] [id number] [place] [address] Referring Physician General Surgery 03/22/22 Chef Under Relationship Specialty Start Date End Date Zack Stacy MD [address] [place] [address] PCP - General Family Medicine 08/11/14 Lenin Ramirez MD [address] [place] [address] Consulting Physician Interventional Cardiology 04/06/22 Sherry George DO [address] [place] [address] Consulting Physician General Surgery 04/06/22 Андрей Pizano MD [address] [facility] [place] [id number] [place] [address] Referring Physician General Surgery 03/22/22 Chef Under Relationship Specialty Start Date End Date Zack Stacy MD [address] [place] [address] 99790 PCP - General Family Medicine 08/11/14 Lenin Ramirez MD [address] [facility] [address] [place] [address] Consulting Physician Interventional Cardiology 04/06/22 Sherry George DO [address] [place] [address] Consulting Physician General Surgery 04/06/22 Андрей Pizano MD [address] [facility] [place] [id number] [place] [address] Referring Physician General Surgery 03/22/22 Chef Under Relationship Specialty Start Date End Date Zack Stacy MD [address] [place] [address] 37740 PCP - General Family Medicine 08/11/14 Lenin Ramirez MD [address] [facility] [address] [place] [address] Consulting Physician Interventional Cardiology 04/06/22 Sherry George DO [address] [place] [address] Consulting Physician General Surgery 04/06/22 Андрей Pizano MD [address] [facility] [place] [id number] [place] [address] Referring Physician General Surgery 03/22/22 Chef Under Relationship Specialty Start Date End Date Zack Stacy MD [address] [place] [address] PCP - General Family Medicine 08/11/14 Lenin Ramirez MD [address] [place] [address] Consulting Physician Interventional Cardiology 04/06/22 Sherry George DO [address] [place] [address] Consulting Physician General Surgery 04/06/22 [place] [address] [place] [address] [address] [place] [id number] [place] [address] Referring Physician General Surgery 03/22/22 Chef Under Relationship Specialty Start Date End Date Zack Stacy MD [address] [place], [place] [id number] PCP - General Family Medicine 08/11/14 Lenin Ramirez MD [address] [facility] [address] [place] [address] Consulting Physician Interventional Cardiology 04/06/22 Sherry George DO [address] [place] [address] Consulting Physician General Surgery 04/06/22 [place] [address] [place] [address] [address] [place] [id number] [place] [address] Referring Physician General Surgery 03/22/22 Chef Under Relationship Specialty Start Date End Date Zack Stacy MD [address] [place] [address] 56672 PCP - General Family Medicine 08/11/14 Lenin Ramirez MD [address] [facility] [address] [place] [address] Consulting Physician Interventional Cardiology 04/06/22 Sherry George DO [address] [place] [address] Consulting Physician General Surgery 04/06/22 Андрей Pizano MD [address] [facility] [place] [id number] [place] [address] Referring Physician General Surgery 03/22/22 Chef Under Relationship Specialty Start Date End Date Zack Stacy MD [address] [place] [address] PCP - General Family Medicine 08/11/14 Lenin Ramirez MD [address] [facility] [address] [place] [address] Consulting Physician Interventional Cardiology 04/06/22 Sherry George DO [address] [place] [address] Consulting Physician General Surgery 04/06/22 Андрей Pizano MD [address] [facility] [place] [id number] [place] [address] Referring Physician General Surgery 03/22/22 Chef Under Relationship Specialty Start Date End Date Zack Stacy MD [address] [place] [id number] PCP - General Family Medicine 08/11/14 Lenin Ramirez MD [address] [facility] [address] [place] [address] Consulting Physician Interventional Cardiology 04/06/22 Sherry George DO [address] [place] [address] Consulting Physician General Surgery 04/06/22 [place] [address] [place] [address] Out[facility] [place] [id number] [place] [address] Referring Physician General Surgery 03/22/22 Chef Under Relationship Specialty Start Date End Date Zack Stacy MD [address] [place], [place] [id number] PCP - General Family Medicine 08/11/14 Lenin Ramirez MD [address] [facility] [address] [place] [address] Consulting Physician Interventional Cardiology 04/06/22 Sherry George DO [address] [place] [address] Consulting Physician General Surgery 04/06/22 [place] [address] [place] [address] Outpatient [place] [id number] [place] [address] Referring Physician General Surgery 03/22/22 Chef Under Relationship Specialty Start Date End Date Zack Stacy MD [address] [place] [id number] PCP - General Family Medicine 08/11/14 Lenin Ramirez MD [address] [facility] [address] [place] [address] Consulting Physician Interventional Cardiology 04/06/22 Sherry George DO [address] [place] [address] Consulting Physician General Surgery 04/06/22 [place] [address] [place] [address] Outpatient [place] [id number] [place] [address] Referring Physician General Surgery 03/22/22 Chef Under Relationship Specialty Start Date End Date Zack Stacy MD [address] [place], [place] [id number] PCP - General Family Medicine 08/11/14 Lenin Ramirez MD [address] [facility] [address] [place] [address] Consulting Physician Interventional Cardiology 04/06/22 Sherry George DO [address] [facility] [address] [place] [address] Consulting Physician General Surgery 04/06/22 Андрей Pizano MD [address] [facility] Outpatient [place] [id number] [place] [address] Referring Physician General Surgery 03/22/22 Chef Under Relationship Specialty Start Date End Date Zack Stacy MD [address] [place] [address] [phone] PCP - General Family Medicine 08/11/14 Lenin Ramirez MD [address] [facility] [address] [place] [address] Consulting Physician Interventional Cardiology 04/06/22 Sherry George DO [address] [place] [address] Consulting Physician General Surgery 04/06/22 Андрей Pizano MD [address] [facility] Out[facility] [place] [id number] [place] [address] Referring Physician General Surgery 03/22/22 Chef Under Relationship Specialty Start Date End Date Zack Stacy MD [address] [place] [address] PCP - General Family Medicine 08/11/14 Lenin Ramirez MD [address] [facility] [address] [place] [address] Consulting Physician Interventional Cardiology 04/06/22 Sherry eGorge DO [address] [place] [address] Consulting Physician General Surgery 04/06/22 Андрей Pizano MD [address] [facility] Out[facility] [place] [id number] [place] [address] Referring Physician General Surgery 03/22/22 Chef Under Relationship Specialty Start Date End Date Zack Stacy MD [address] [place] [id number] PCP - General Family Medicine 08/11/14 Lenin Ramirez MD [address] [facility] [address] [place] [address] Consulting Physician Interventional Cardiology 04/06/22 Sherry George DO [address] [place] [address] Consulting Physician General Surgery 04/06/22 Андрей Pizano MD [address] [facility] Out[facility] [place] [id number] [place] [address] Referring Physician General Surgery 03/22/22 Chef Under Relationship Specialty Start Date End Date Zack Stacy MD [address] [place] [id number] PCP - General Family Medicine 08/11/14 Lenin Ramirez MD [address] [place] [address] Consulting Physician Interventional Cardiology 04/06/22 Sherry George DO [address] [place] [address] Consulting Physician General Surgery 04/06/22 Андрей Piznao MD [address] [facility] Out[facility] [place] [id number] [place] [address] Referring Physician General Surgery 03/22/22 Chef Under Relationship Specialty Start Date End Date Zack Stacy MD [address] [place] [id number] PCP - General Family Medicine 08/11/14 Lenin Ramirez MD [address] [place] [address] Consulting Physician Interventional Cardiology 04/06/22 Sherry George DO [address] [place] [address] Consulting Physician General Surgery 04/06/22 Андрей Pizano MD [address] [facility] [place] [id number] [place] [address] Referring Physician General Surgery 03/22/22 Chef Under Relationship Specialty Start Date End Date Zack Stacy MD [address] [place] [address] PCP - General Family Medicine 08/11/14 Lenin Ramirez MD [address] [facility] [address] [place] [address] Consulting Physician Interventional Cardiology 04/06/22 Sherry George DO [address] [place] [address] Consulting Physician General Surgery 04/06/22 Андрей Pizano MD [address] [facility] Out[facility] [place] [id number] [place] [address] Referring Physician General Surgery 03/22/22 Chef Under Relationship Specialty Start Date End Date Zack Stacy MD [address] [place] [id number] PCP - General Family Medicine 08/11/14 Lenin Ramirez MD [address] [facility] [address] [place] [address] Consulting Physician Interventional Cardiology 04/06/22 Sherry George DO [address] [place] [address] Consulting Physician General Surgery 04/06/22 Андрей Pizano MD [address] [address] Referring Physician General Surgery 03/22/22 FOR RECORDS [...] BE BASED ON THE PRIMARY CLINICAL RECORDS. [facility] [employer] provides no warranty or guarantee of the accuracy or completeness of information in this document.
--- NOTE | 2023-04-22 18:44 | ECHOCS_ITS ---
Reason For Study: Dyspnea/SOB Procedure This was a 2D Doppler, Color Flow transthoracic echocardiogram. The study was technically difficult. Contrast injection was performed. Exam performed portable in patient room. Left Ventricle Normal LV size. The estimated ejection fraction is 25-30 %. There is evidence of diastolic dysfunction. There is moderate global hypokinesis of the left ventricle. Right Ventricle Mildly dilated right ventricle. Normal systolic function. Atria The left atrium is mildly enlarged. The right atrium is mildly enlarged. No doppler evidence for ASD. Mitral Valve There is no mitral valve stenosis. Mild-Moderate (1-2+) mitral valve insufficiency. Tricuspid Valve There is no tricuspid stenosis. Mild to moderate (1-2+) tricuspid valve insufficiency. Pulmonary artery systolic pressure is 40 mmHg. Aortic Valve There is no aortic stenosis. No aortic valve insufficiency. Pulmonic Valve There is no pulmonic valvular stenosis. No pulmonic valve insufficiency. Great Vessels Normal aortic root. Pericardium/Pleural No pericardial effusion. Medication Diluted definity 4ml given slow IV push to enhance endocardial definition. MMode/2D Measurements & Calculations LVIDd: 5.3 cm IVSd: 1.4 cm Ao root diam: 3.4 cm LVIDs: 4.6 cm LVPWd: 1.4 cm LA dimension: 4.5 cm RVDd: 5.6 cm FS: 11.7 % LAV(MOD-bp): 99.7 ml LA A4 area: 29.8 cm2 RA A4 area: 28.7 cm2 LAV(MOD-bp) Indexed: 50.9 ml/m2 LAV(MOD-sp2): 75.7 ml LAV(MOD-sp4): 104.6 ml Doppler Measurements & Calculations MV E max mitzy: 94.6 cm/sec MV V2 max: 101.2 cm/sec Ao V2 max: 86.4 cm/sec MV max P.1 mmHg Ao max P.0 mmHg MV V2 mean: 48.4 cm/sec MV mean P.2 mmHg MV V2 VTI: 23.4 cm LV V1 max: 66.5 cm/sec PA V2 max: 55.7 cm/sec TR max mitzy: 298.1 cm/sec LV V1 max P.8 mmHg TR max P.5 mmHg ECHO/Echo Complete W/ Contrast Interpretation Summary The estimated ejection fraction is 25-30 %. There is evidence of diastolic dysfunction. Mildly dilated right ventricle. The left atrium is mildly enlarged. Mild-Moderate (1-2+) mitral valve insufficiency. There is moderate global hypokinesis of the left ventricle. Ordering Physician: Kaylen Galindo Referring Physician: Zack Stacy Performed By: Jean Marie Cheng RCS
--- OUTSIDE RECORDS SUMMARY | 2023-04-22 19:41 | XMS RPT_ITS | CCD ---
Author Name Unknown Address [address] [facility] [address] [place] [address] Organization [facility] Care Team Providers Care Roll Cleaner Name Role Phone Zack Olmos Unavailable Raven Osullivan Unavailable Unavailable Zack Olmos Primary Care Provider Elise Justice Unavailable Unavailable Zack Olmos Primary Care Provider Zack Olmos MD Primary Care Provider Zack Olmos MD Primary Care Provider MYRA RIOS Attending Unavailable MYRA RIOS Referring Unavailable ZACK OLMOS Primary Care Unavailable LENIN RAMIREZ Referring Unavaila LEINN Puckett Attending Unavaila ZACK Carbajal Primary Care Unavailable Zack Olmos MD Primary Care Provider Lenin Ramirez MD Unavailable Sherry George DO Unavailable [phone] ZACK OLMOS Primary Care Unavailable ZACK OLMOS [...] Therapy Services Unavailable Laith GONZALEZ, Dr. Rivera ([facility]) A Unavail able Orthopedic Provider Unavailable Unavailable Miranda GONZALEZ, Dr. Echevarria Unavailable Medicine [facility], Pulmonary Unavailable Cardiology Provider Unavailable Unavailable Garrett GONZALEZ, Dr. Fulton Unavailable Dr. Riley Victor MD Unavailable James GONZALEZ, Dr. García Unavailable Emilie COSTA, Farideh Unavailable Vascular Surgeon Unavailable Unavailable Luiz GONZALEZ, Rosy Gonsales Unavailable Jose PAPER RULER, Pilar Unavailable Unavailable Elbert PAPER RULER, Laura E Unavailable Unavailable Jose Alberto PAPER RULER, Lesley C Unavailable Unavailable Corcoran PAPER RULER, Johnny Unavailable Unavailable Sanjeev GONZALEZ, Donaldo Herrera Unavailable Keenan MC, Edgar Gonsales Unavailable Keenan RN, Vania L Unavailable Unavail able Won PAPER RULER, Varsha Unavailable Unavailable Popeye DE LEON, Umu Herrera Unavailable Unavaila ble Marthey PAPER RULER, Lien Unavailable Unavailable Cedric PAPER RULER, Sravan Unavailable Unavailable Mutersbaugh PAPER RULER, Rachel K Unavailable Unavai toya CORRALC, Yarely J Unavailable Konrad SENIOR APPLICATIONS ARCHITECT, Randi Unavailable Unavailable Isac PAPER RULER, Alejandrina L Unavailable Unavailab le Corby PAPER RULER, Rosy M Unavailable Unavailab le Cary PAPER RULER, Muna Engel Unavailable Unavailab angelita Obrien MA, Varsha Unavailable Unavailable Kelly GONZALEZ, Tip Herrera Unavailable Wedannielleerd PAPER RULER, Sandra Unavailable Unavailabl e Partha PAPER RULER, Marisela N Unavailable Unavaila ble Zaugg PAPER RULER, Raven Unavailable Unavailable Unavailable Unavailable SHERRY GEORGE [...] (10 sources) amLODIPine Drug Allergy 0 Itching [facility] Aspirin (10 sources) Aspirin Drug Allergy 5 [facility] Corticosteroids (7 sources) predniSONE Drug Allergy 1 [facility] Penicillins (antibiotic) (10 sources) Penicillins Drug Allergy 5 Other (See Comments) [facility] (20 sources) aspirin; Translations: [EC ASPIRIN] Propensity to adverse reactions to drug 5 [facility] (20 sources) Penicillins; Translations: [PENICILLINS] Propensity to adverse reactions to drug 5 Other (See Comments) [facility] (20 sources) amLODIPine; Translations: [AMLODIPINE] Drug Allergy 0 Itching [facility] (20 sources) Penicillins; Translations: [penicillins] Propensity to adverse reactions to drug 5 Other (See Comments), Prednisone (substance) [facility] (20 sources) predniSONE; Translations: [PREDNISONE] Drug Allergy 1 Other (See Comments) [facility] (20 sources) Penicillins Propensity to adverse reactions to drug 5 Other (See Comments) [facility] (20 sources) oxyCODONE; Translations: [OXYCODONE] Drug Allergy 3 GI Intolerance [facility] (17 sources) Aspirin; Translations: [aspirin] Drug Allergy [facility] (1 source) Indomethacin; Translations: [indomethacin] [facility] Allergy [facility] (1 source) rOPINIRole; Translations: [ropinirole] Drug Allergy [facility] (1 source) traZODone; Translations: [trazodone] Drug Allergy [facility] (1 source) amLODIPine Drug Allergy [facility] (1 source) Penicillin Drug Allergy [facility] (1 source) predniSONE Drug Allergy [facility] (1 source) Coating on Aspirin Drug allergy (disorder) [facility] (16 sources) Penicillin V Drug Allergy [facility]. 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 03-30-2023 10:36-0500 Diastolic blood pressure 56 mm[Hg] Sravan Steele LPN [facility]. 03-30-2023 10:36-0500 Heart rate 73 /min Sravan Steele LPN [facility] 03-30-2023 10:36-0500 Systolic blood pressure 83 mm[Hg] Sravan Steele LPN [facility]. 12-22-2022 09:58-0400 Body temperature 97.59 [degF] Андрей Claros RN [facility] 12-22-2022 09:58-0400 Diastolic blood pressure 62 mm[Hg] Андрей Claros RN [facility] 12-22-2022 09:58-0400 Heart rate 74 /min Андрей Claros RN [facility] 12-22-2022 09:58-0400 Respiratory rate 14 /min Андрей Claros RN [facility] 12-22-2022 09:58-0400 SaO2% (BldA) [Mass fraction] 90 % Андрей Claros RN [facility] 12-22-2022 09:58-0400 Systolic blood pressure 102 mm[Hg] Андрей Claros RN [facility] 12-15-2022 09:14-0400 Body temperature 98.1 [degF] Андрей Claros RN [facility] 12-15-2022 09:14-0400 Diastolic blood pressure 68 mm[Hg] Андрей Claros RN [facility] 12-15-2022 09:14-0400 Heart rate 76 /min Андрей Claros RN [facility] 12-15-2022 09:14-0400 Respiratory rate 16 /min Андрей Claros RN [facility] 12-15-2022 09:14-0400 SaO2% (BldA) [Mass fraction] 98 % Андрей Claros RN [facility] 12-15-2022 09:14-0400 Systolic blood pressure 112 mm[Hg] Андрей Claros RN [facility] 12-06-2022 13:42-0400 Body height 170.2 cm Sherry George DO Work Phone: [facility] 12-06-2022 13:42-0400 Body mass index (BMI) [Ratio] 26.63 kg/m2 Sherry George DO Work Phone: [facility] 12-06-2022 13:42-0400 Body weight 77.11 kg Sherry George DO Work Phone: [facility] 12-06-2022 13:42-0400 Diastolic blood pressure 56 mm[Hg] Sherry George DO Work Phone: [facility] 12-06-2022 13:42-0400 Heart rate 71 /min Shrery George DO Work Phone: [facility] 12-06-2022 13:42-0400 Systolic blood pressure 94 mm[Hg] Sherry George DO Work Phone: [facility] 12-06-2022 10:33-0400 Body height 170.2 cm Lenin Ramirez MD Work Phone: [facility] 12-06-2022 10:33-0400 Diastolic blood pressure 58 mm[Hg] Lenin Ramirez MD Work Phone: [facility] 12-06-2022 10:33-0400 Heart rate 76 /min Lenin Ramirez MD Work Phone: [facility] 12-06-2022 10:33-0400 Systolic blood pressure 98 mm[Hg] Lenin Ramirez MD Work Phone: [facility] 12-01-2022 10:39-0400 Body temperature 97.7 [degF] Андрей Claros RN [facility] 12-01-2022 10:39-0400 Diastolic blood pressure 60 mm[Hg] Андрей Claros RN [facility] 12-01-2022 10:39-0400 Heart rate 91 /min Андрей Claros RN [facility] 12-01-2022 10:39-0400 Respiratory rate 16 /min Андрей Claros RN [facility] 12-01-2022 10:39-0400 SaO2% (BldA) [Mass fraction] 93 % Андрей Claros RN [facility] 12-01-2022 10:39-0400 Systolic blood pressure 102 mm[Hg] Андрей Claros RN [facility] 11-30-2022 13:52-0400 Diastolic blood pressure 55 mm[Hg] Sravan Steele LPN [facility]. 11-30-2022 13:52-0400 Heart rate 93 /min Sravan Steele LPN [facility]. 11-30-2022 13:52-0400 Systolic blood pressure 111 mm[Hg] Sravan Steele LPN [facility]. 11-27-2022 10:09-0400 Heart rate 89 /min KATHE CHAMPION MD [facility] 11-27-2022 10:09-0400 Respiratory rate 18 /min KATHE CHAMPION MD [facility] 11-27-2022 10:04-0400 Body temperature 97.7 [degF] KATHE CHAMPION MD [facility] 11-27-2022 10:04-0400 Diastolic Blood Pressure Non-Invasive 74 1 KATHE CHAMPION MD [facility] 11-27-2022 10:04-0400 Heart rate 89 /min KATHE CHAMPION MD [facility] 11-27-2022 10:04-0400 Systolic Blood Pressure Non-Invasive 105 1 KATHE CHAMPION MD [facility] 11-27-2022 07:27-0400 Heart rate 85 /min KATHE CHAMPION MD [facility] 11-27-2022 07:27-0400 Respiratory rate 18 /min KATHE CHAMPION MD [facility] 11-27-2022 07:18-0400 Body temperature 97.7 [degF] KATHE CHAMPION MD [facility] 11-27-2022 07:18-0400 Diastolic Blood Pressure Non-Invasive 55 1 KATHE CHAMPION MD [facility] 11-27-2022 07:18-0400 Respiratory rate 18 /min KATHE CHAMPION MD [facility] 11-27-2022 07:18-0400 Systolic Blood Pressure Non-Invasive 98 1 KATHE CHAMPION MD [facility] 11-27-2022 02:28-0400 Blood Pressure Cuff Size KATHE CHAMPION MD [facility] 11-27-2022 02:28-0400 Blood Pressure Location KATHE CHAMPION MD [facility] 11-27-2022 02:28-0400 Blood Pressure Method KATHE CHAMPION MD [facility] 11-27-2022 02:28-0400 Body temperature 97.88 [degF] KATHE CHAMPION MD [facility] 11-27-2022 02:28-0400 Diastolic Blood Pressure Non-Invasive 61 1 KATHE CHAMPION MD [facility] 11-27-2022 02:28-0400 Systolic Blood Pressure Non-Invasive 93 1 KATHE CHAMPION MD [facility] 11-27-2022 00:40-0400 Blood Pressure Cuff Size KATHE CHAMPION MD [facility] 11-27-2022 00:40-0400 Blood Pressure Location KATHE CHAMPION MD [facility] 11-27-2022 00:40-0400 Blood Pressure Method KATHE CHAMPION MD [facility] 11-26-2022 23:26-0400 Blood Pressure Cuff Size KATHE CHAMPION MD [facility] 11-26-2022 23:26-0400 Blood Pressure Location KATHE CHAMPION MD [facility] 11-26-2022 23:26-0400 Blood Pressure Method KATHE CHAMPION MD [facility] 11-26-2022 19:11-0400 Body temperature 96.8 [degF] KATHE CHAMPION MD [facility] 11-26-2022 19:11-0400 Body weight 80.5 kg KATHE CHAMPION MD [facility] 11-26-2022 19:11-0400 Reason For Taking VItal Signs KATHE CHAMPION MD [facility] 11-26-2022 19:01-0400 Heart rate 104 /min KATHE CHAMPION MD [facility] 11-26-2022 18:31-0400 Heart rate 104 /min KATHE CHAMPION MD [facility] 11-26-2022 18:02-0400 Heart rate 76 /min KATHE CHAMPION MD [facility] 11-26-2022 17:05-0400 Body weight 81.9 kg KATHE CHAMPION MD [facility] 11-26-2022 17:05-0400 Reason For Taking VItal Signs KATHE CHAMPION MD [facility] 11-26-2022 14:34-0400 Heart rate 124 /min KATHE CHAMPION MD [facility] 11-26-2022 10:36-0400 Heart rate 104 /min KATHE CHAMPION MD [facility] 11-26-2022 02:23-0400 Reason For Taking VItal Signs KATHE CHAMPION MD [facility] 11-25-2022 12:20-0400 Body temperature 98.06 [degF] KATHE CHAMPION MD [facility] 11-25-2022 12:20-0400 Body weight 78.2 kg KATHE CHAMPION MD [facility] 11-25-2022 09:23-0400 Body temperature 97.52 [degF] KATHE CHAMPION MD [facility] 11-24-2022 19:00-0400 Heart rate 92 /min KATHE CHAMPION MD [facility] 11-24-2022 16:54-0400 Mean blood pressure 68 mm[Hg] KATHE CHAMPION MD [facility] 11-24-2022 15:05-0400 Mean blood pressure 67 mm[Hg] KATHE CHAMPION MD [facility] 11-24-2022 14:30-0400 Mean blood pressure 60 mm[Hg] KATHE CHAMPION MD [facility] 11-24-2022 00:05-0400 Body height 170 cm KATHE CHAMPION MD [facility] 11-24-2022 00:05-0400 Body weight 26.75 kg/m2 KATHE CHAMPION MD [facility] 11-17-2022 08:56-0400 Body temperature 97.2 [degF] Essence Larios [facility] 11-17-2022 08:56-0400 Diastolic blood pressure 58 mm[Hg] Essence Larios [facility] 11-17-2022 08:56-0400 Heart rate 58 /min Essence Larios [facility] 11-17-2022 08:56-0400 Respiratory rate 18 /min Essence L[facility] 11-17-2022 08:56-0400 SaO2% (BldA) [Mass fraction] 98 % Essence L[facility] 11-17-2022 08:56-0400 Systolic blood pressure 102 mm[Hg] Essence L[facility] 11-03-2022 10:55-0400 Body temperature 98.2 [degF] Андрей Claros RN [facility] 11-03-2022 10:55-0400 Diastolic blood pressure 62 mm[Hg] Андрей Claros RN [facility] 11-03-2022 10:55-0400 Heart rate 78 /min Андрей Claros RN [facility] 11-03-2022 10:55-0400 Respiratory rate 16 /min Андрей Claros RN [facility] 11-03-2022 10:55-0400 SaO2% (BldA) [Mass fraction] 93 % Андрей Claros RN [facility] 11-03-2022 10:55-0400 Systolic blood pressure 118 mm[Hg] Андрей Claros RN [facility] 10-25-2022 09:24-0400 Body temperature 98.29 [degF] Андрей Claros RN [facility] 10-25-2022 09:24-0400 Diastolic blood pressure 62 mm[Hg] Андрей Claros RN [facility] 10-25-2022 09:24-0400 Heart rate 78 /min Андрей Claros RN [facility] 10-25-2022 09:24-0400 Respiratory rate 16 /min Андрей Claros RN [facility] 10-25-2022 09:24-0400 SaO2% (BldA) [Mass fraction] 92 % Андрей Claros RN [facility] 10-25-2022 09:24-0400 Systolic blood pressure 102 mm[Hg] Андрей Claros RN [facility] 10-13-2022 08:53-0400 Body temperature 97.9 [degF] Андрей Claros RN [facility] 10-13-2022 08:53-0400 Diastolic blood pressure 62 mm[Hg] Андрей Claros RN [facility] 10-13-2022 08:53-0400 Heart rate 86 /min Андрей Claros RN [facility] 10-13-2022 08:53-0400 Respiratory rate 16 /min Андрей Claros RN [facility] 10-13-2022 08:53-0400 SaO2% (BldA) [Mass fraction] 97 % Андрей Claros RN [facility] 10-13-2022 08:53-0400 Systolic blood pressure 112 mm[Hg] Андрей Claros RN [facility] 10-06-2022 08:32-0400 Body temperature 98.1 [degF] Андрей Claros RN [facility] 10-06-2022 08:32-0400 Diastolic blood pressure 68 mm[Hg] Андрей Claros RN [facility] 10-06-2022 08:32-0400 Heart rate 68 /min Андрей Claros RN [facility] 10-06-2022 08:32-0400 Respiratory rate 16 /min Андрей Claros RN [facility] 10-06-2022 08:32-0400 SaO2% (BldA) [Mass fraction] 97 % Андрей Claros RN [facility] 10-06-2022 08:32-0400 Systolic blood pressure 108 mm[Hg] Андрей Claros RN [facility] 09-29-2022 10:34-0400 Body temperature 98.01 [degF] Андрей Claros RN [facility] 09-29-2022 10:34-0400 Diastolic blood pressure 60 mm[Hg] Андрей Claros RN [facility] 09-29-2022 10:34-0400 Heart rate 92 /min Андрей Claros RN [facility] 09-29-2022 10:34-0400 Respiratory rate 16 /min Андрей Claros RN [facility] 09-29-2022 10:34-0400 SaO2% (BldA) [Mass fraction] 97 % Андрей Claros RN [facility] 09-29-2022 10:34-0400 Systolic blood pressure 118 mm[Hg] Андрей Claros RN [facility] 09-22-2022 08:23-0400 Body temperature 98.1 [degF] Андрей Claros RN [facility] 09-22-2022 08:23-0400 Diastolic blood pressure 62 mm[Hg] Андрей Claros RN [facility] 09-22-2022 08:23-0400 Heart rate 82 /min Андрей Claros RN [facility] 09-22-2022 08:23-0400 Respiratory rate 16 /min Андрей Claros RN [facility] 09-22-2022 08:23-0400 SaO2% (BldA) [Mass fraction] 99 % Андрей Claros RN [facility] 09-22-2022 08:23-0400 Systolic blood pressure 108 mm[Hg] Андрей Claros RN [facility] 09-15-2022 09:01-0400 Body temperature 98.29 [degF] Андрей Claros RN [facility] 09-15-2022 09:01-0400 Diastolic blood pressure 62 mm[Hg] Андрей Claros RN [facility] 09-15-2022 09:01-0400 Heart rate 79 /min Андрей Claros RN [facility] 09-15-2022 09:01-0400 Respiratory rate 16 /min Андрей Claros RN [facility] 09-15-2022 09:01-0400 SaO2% (BldA) [Mass fraction] 91 % Андрей Claros RN [facility] 09-15-2022 09:01-0400 Systolic blood pressure 104 mm[Hg] Андрей Claros RN [facility] 09-08-2022 08:47-0400 Body temperature 98.1 [degF] Андрей Claros RN [facility] 09-08-2022 08:47-0400 Diastolic blood pressure 60 mm[Hg] Андрей Claros RN [facility] 09-08-2022 08:47-0400 Heart rate 87 /min Андрей Claros RN [facility] 09-08-2022 08:47-0400 Respiratory rate 16 /min Андрей Claros RN [facility] 09-08-2022 08:47-0400 SaO2% (BldA) [Mass fraction] 99 % Андрей Claros RN [facility] 09-08-2022 08:47-0400 Systolic blood pressure 102 mm[Hg] Андрей Claros RN [facility] 09-01-2022 09:01-0400 Body temperature 97.3 [degF] Андрей Claros RN [facility] 09-01-2022 09:01-0400 Diastolic blood pressure 58 mm[Hg] Андрей Claros RN [facility] 09-01-2022 09:01-0400 Heart rate 92 /min Андрей Claros RN [facility] 09-01-2022 09:01-0400 Respiratory rate 16 /min Андрей Claros RN [facility] 09-01-2022 09:01-0400 SaO2% (BldA) [Mass fraction] 97 % Андрей Claros RN [facility] 09-01-2022 09:01-0400 Systolic blood pressure 112 mm[Hg] Андрей Claros RN [facility] 08-25-2022 11:43-0400 Body temperature 98.2 [degF] Андрей Claros RN [facility] 08-25-2022 11:43-0400 Diastolic blood pressure 76 mm[Hg] Андрей Claros RN [facility] 08-25-2022 11:43-0400 Heart rate 81 /min Андрей Claros RN [facility] 08-25-2022 11:43-0400 Respiratory rate 16 /min Андрей Claros RN [facility] 08-25-2022 11:43-0400 SaO2% (BldA) [Mass fraction] 97 % Андрей Claros RN [facility] 08-25-2022 11:43-0400 Systolic blood pressure 114 mm[Hg] Андрей Claros RN [facility] 08-09-2022 08:39-0400 Body temperature 98.2 [degF] Андрей Claros RN [facility] 08-09-2022 08:39-0400 Diastolic blood pressure 76 mm[Hg] Андрей Claros RN [facility] 08-09-2022 08:39-0400 Heart rate 87 /min Андрей Claros RN [facility] 08-09-2022 08:39-0400 Respiratory rate 16 /min Андрей Claros RN [facility] 08-09-2022 08:39-0400 SaO2% (BldA) [Mass fraction] 95 % Андрей Claros RN [facility] 08-09-2022 08:39-0400 Systolic blood pressure 108 mm[Hg] Андрей Claros RN [facility] 07-21-2022 08:56-0400 Body temperature 98.1 [degF] Андрей Claros RN [facility] 07-21-2022 08:56-0400 Diastolic blood pressure 76 mm[Hg] Андрей Claros RN [facility] 07-21-2022 08:56-0400 Heart rate 76 /min Андрей Claros RN [facility] 07-21-2022 08:56-0400 Respiratory rate 16 /min Андрей Claros RN [facility] 07-21-2022 08:56-0400 SaO2% (BldA) [Mass fraction] 97 % Андрей Claros RN [facility] 07-21-2022 08:56-0400 Systolic blood pressure 106 mm[Hg] Андрей Claros RN [facility] 06-28-2022 11:27-0400 Body temperature 98.01 [degF] Андрей Claros RN [facility] 06-28-2022 11:27-0400 Diastolic blood pressure 62 mm[Hg] Андрей Claros RN [facility] 06-28-2022 11:27-0400 Heart rate 63 /min Андрей Claros RN [facility] 06-28-2022 11:27-0400 Respiratory rate 16 /min Андрей Claros RN [facility] 06-28-2022 11:27-0400 SaO2% (BldA) [Mass fraction] 93 % Андрей Claros RN [facility] 06-28-2022 11:27-0400 Systolic blood pressure 102 mm[Hg] Андрей Claros RN [facility] 06-23-2022 11:21-0400 Body temperature 98.1 [degF] Андрей Claros RN [facility] 06-23-2022 11:21-0400 Diastolic blood pressure 74 mm[Hg] Андрей Claros RN [facility] 06-23-2022 11:21-0400 Heart rate 76 /min Андрей Claros RN [facility] 06-23-2022 11:21-0400 Respiratory rate 16 /min Андрей Claros RN [facility] 06-23-2022 11:21-0400 SaO2% (BldA) [Mass fraction] 98 % Андрей Claros RN [facility] 06-23-2022 11:21-0400 Systolic blood pressure 114 mm[Hg] Андрей Claros RN [facility] 06-23-2022 09:18-0400 Body temperature 97.9 [degF] Juancho Kaminski PT [facility] 06-23-2022 09:18-0400 Diastolic blood pressure 70 mm[Hg] Juancho Kaminski [facility] 06-23-2022 09:18-0400 Heart rate 80 /min Juancho Kaminski PT [facility] 06-23-2022 09:18-0400 Respiratory rate 18 /min Juancho Kaminski PT [facility] 06-23-2022 09:18-0400 SaO2% (BldA) [Mass fraction] 97 % Juancho Kaminski [facility] 06-23-2022 09:18-0400 Systolic blood pressure 125 mm[Hg] Juancho Kaminski [facility] 06-21-2022 09:08-0400 Body height 163.83 cm [facility]. 06-21-2022 09:08-0400 Body mass index (BMI) [Ratio] 28.56 kg/m2 [facility] [place] [facility], [facility]. 06-21-2022 09:08-0400 Body surface area Derived from formula 1.83 m2 [facility] [place] [facility], [facility]. 06-21-2022 09:08-0400 Body weight 76.66 kg [facility].; [place] [facility], [facility]. 06-21-2022 09:08-0400 Diastolic blood pressure 51 mm[Hg] [facility], [facility]. 06-21-2022 09:08-0400 Heart rate 77 /min [facility].; [facility], [facility]. 06-21-2022 09:08-0400 Systolic blood pressure 130 mm[Hg] [facility].; [employer], [facility]. 06-15-2022 15:37-0400 Body temperature 97.7 [degF] Sravan Martín [facility] [place] 06-15-2022 15:37-0400 Diastolic blood pressure 81 mm[Hg] Sravan Martín [facility] [place] 06-15-2022 15:37-0400 Heart rate 78 /min Sravan Martín [facility] [place] 06-15-2022 15:37-0400 Respiratory rate 18 /min Sravan Martín 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 [facility] 06-15-2022 15:37-0400 SaO2% (BldA) [Mass fraction] 91 % Sravan Martín 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 [facility] 06-15-2022 15:37-0400 Systolic blood pressure 132 mm[Hg] Sravan Martín 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 [facility] 06-09-2022 12:59-0400 Body temperature 97.7 [degF] Sravan Martín 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 [facility] 06-09-2022 12:59-0400 Diastolic blood pressure 64 mm[Hg] Sravan Martín 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 [facility] 06-09-2022 12:59-0400 Heart rate 71 /min Sravan Martín 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 [facility] 06-09-2022 12:59-0400 Respiratory rate 18 /min Sravan Martín 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 [facility] 06-09-2022 12:59-0400 SaO2% (BldA) [Mass fraction] 93 % Sravan Martín 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 [facility] 06-09-2022 12:59-0400 Systolic blood pressure 125 mm[Hg] Sravan Martín 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 [facility] 06-02-2022 09:42-0400 Body temperature 99.1 [degF] Андрей Claros RN [facility] 06-02-2022 09:42-0400 Diastolic blood pressure 58 mm[Hg] Андрей Claros RN [facility] 06-02-2022 09:42-0400 Heart rate 76 /min Андрей Claros RN [facility] 06-02-2022 09:42-0400 Respiratory rate 16 /min Андрей Claros RN [facility] 06-02-2022 09:42-0400 SaO2% (BldA) [Mass fraction] 96 % Андрей Claros RN [facility] 06-02-2022 09:42-0400 Systolic blood pressure 102 mm[Hg] Андрей Claros RN [facility] 06-01-2022 15:40-0400 Body temperature 97.5 [degF] [facility] [place] 06-01-2022 15:40-0400 Diastolic blood pressure 62 mm[Hg] [facility] [place] 06-01-2022 15:40-0400 Respiratory rate 17 /min [facility] [place] 06-01-2022 15:40-0400 Systolic blood pressure 128 mm[Hg] [facility] [place] 05-31-2022 10:08-0400 Body height 170.2 cm Lenin Ramirez MD Work Phone: [facility] 05-31-2022 10:08-0400 Body mass index (BMI) [Ratio] 26.31 kg/m2 Lenin Ramirez MD Work Phone: [facility] 05-31-2022 10:08-0400 Body weight 76.2 kg Lenin Ramirez MD Work Phone: [facility] 05-31-2022 10:08-0400 Diastolic blood pressure 69 mm[Hg] Lenin Ramirez MD Work Phone: [facility] 05-31-2022 10:08-0400 Heart rate 73 /min Lenin Ramirez MD Work Phone: [facility] 05-31-2022 10:08-0400 SaO2% (BldA) [Mass fraction] 99 % Lenin Ramirez MD Work Phone: [facility] 05-31-2022 10:08-0400 Systolic blood pressure 119 mm[Hg] Lenin Ramirez MD Work Phone: [facility] 05-26-2022 09:03-0400 Body temperature 98.1 [degF] Андрей Claros RN [facility] 05-26-2022 09:03-0400 Diastolic blood pressure 56 mm[Hg] Андрей Claros RN [facility] 05-26-2022 09:03-0400 Heart rate 86 /min Андрей Claros RN [facility] 05-26-2022 09:03-0400 Respiratory rate 16 /min Андрей Claros RN [facility] 05-26-2022 09:03-0400 SaO2% (BldA) [Mass fraction] 98 % Андрей Claros RN [facility] 05-26-2022 09:03-0400 Systolic blood pressure 110 mm[Hg] Андрей Claros RN [facility] 05-24-2022 09:14-0400 Body temperature 97.9 [degF] Sachin Claire PT [facility] 05-24-2022 09:14-0400 Diastolic blood pressure 72 mm[Hg] Sachin Claire PT [facility] 05-24-2022 09:14-0400 Heart rate 63 /min Sachin Claire PT [facility] 05-24-2022 09:14-0400 Respiratory rate 16 /min Sachin Claire PT [facility] 05-24-2022 09:14-0400 SaO2% (BldA) [Mass fraction] 97 % Sachin Claire PT [facility] 05-24-2022 09:14-0400 Systolic blood pressure 117 mm[Hg] Sachin Claire PT [facility] 05-19-2022 10:23-0500 Body temperature 97.3 [degF] [facility] 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 [facility] 05-19-2022 10:23-0500 Diastolic blood pressure 74 mm[Hg] [facility] [place] 05-19-2022 10:23-0500 Heart rate 77 /min [facility] [place] 05-19-2022 10:23-0500 Respiratory rate 17 /min [facility] [place] 05-19-2022 10:23-0500 SaO2% (BldA) [Mass fraction] 95 % [facility] [place] 05-19-2022 10:23-0500 Systolic blood pressure 138 mm[Hg] [facility] [place] 05-19-2022 08:35-0500 Body temperature 98.49 [degF] Андрей Claros RN [facility] 05-19-2022 08:35-0500 Diastolic blood pressure 54 mm[Hg] Андрей Claros RN [facility] 05-19-2022 08:35-0500 Heart rate 78 /min Андрей Claros RN [facility] 05-19-2022 08:35-0500 Respiratory rate 16 /min Андрей Claros RN [facility] 05-19-2022 08:35-0500 SaO2% (BldA) [Mass fraction] 99 % Андрей Claros RN [facility] 05-19-2022 08:35-0500 Systolic blood pressure 116 mm[Hg] Андрей Hyacinth RN [facility] 05-16-2022 15:05-0500 Body temperature 98.71 [degF] Sravan Martín 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 [facility] 05-16-2022 15:05-0500 Diastolic blood pressure 89 mm[Hg] Sravan Martín 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 [facility] 05-16-2022 15:05-0500 Heart rate 79 /min Sravan Martín 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 [facility] 05-16-2022 15:05-0500 Respiratory rate 18 /min Sravan Martín 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 [facility] 05-16-2022 15:05-0500 SaO2% (BldA) [Mass fraction] 97 % Sravan Resendiz [facility] [place] 05-16-2022 15:05-0500 Systolic blood pressure 124 mm[Hg] Sravan Resendiz [facility] [place] 05-13-2022 15:12-0500 Body temperature 97.39 [degF] Gena Saab [facility] 05-13-2022 15:12-0500 Diastolic blood pressure 76 mm[Hg] Gena Saab [facility] 05-13-2022 15:12-0500 Heart rate 85 /min Gena Saab [facility] 05-13-2022 15:12-0500 SaO2% (BldA) [Mass fraction] 89 % Gena Saab [facility] 05-13-2022 15:12-0500 Systolic blood pressure 125 mm[Hg] Gena Saab [facility] 05-12-2022 13:43-0500 Body height 163.83 cm Varsha Upton LPN [facility]. 05-12-2022 13:43-0500 Body mass index (BMI) [Ratio] 29.24 kg/m2 Varsha Upton LPN [facility].; [facility]. 05-12-2022 13:43-0500 Body surface area Derived from formula 1.85 m2 Varsha Upton LPN [facility].; [facility]. 05-12-2022 13:43-0500 Body weight 78.47 kg Varsha Upton LPN [facility].; [facility]. 05-12-2022 13:43-0500 Diastolic blood pressure 67 mm[Hg] Varsha Upton LPN [facility].; [facility]. 05-12-2022 13:43-0500 Heart rate 69 /min Varsha Upton LPN [facility].; [facility]. 05-12-2022 13:43-0500 Inhaled oxygen concentration 30 % Varsha Upton LPN [facility].; [facility]. 05-12-2022 13:43-0500 SaO2% (BldA) [Mass fraction] 98 % Varsha Upton LPN [facility].; [facility]. 05-12-2022 13:43-0500 Systolic blood pressure 119 mm[Hg] Varsha Upton LPN [facility].; [facility]. 05-12-2022 13:43-0500 2.5 L/min Varsha Upton LPN [facility].; [facility]. 05-12-2022 10:03-0500 Body temperature 97.39 [degF] Андрей Claros RN [facility] 05-12-2022 10:03-0500 Diastolic blood pressure 60 mm[Hg] Андрей Claros RN [facility] 05-12-2022 10:03-0500 Heart rate 72 /min Андрей Claros RN [facility] 05-12-2022 10:03-0500 Respiratory rate 16 /min Андрей Claros RN [facility] 05-12-2022 10:03-0500 SaO2% (BldA) [Mass fraction] 97 % Андрей Claros RN [facility] 05-12-2022 10:03-0500 Systolic blood pressure 116 mm[Hg] Андрей Claros RN [facility] 05-10-2022 10:29-0500 Body temperature 98.6 [degF] Renee MCALLISTER [facility] 05-10-2022 10:29-0500 Diastolic blood pressure 56 mm[Hg] Renee MCALLISTER [facility] 05-10-2022 10:29-0500 Heart rate 88 /min Renee MCALLISTER [facility] 05-10-2022 10:29-0500 Respiratory rate 16 /min Renee MCALLISTER [facility] 05-10-2022 10:29-0500 SaO2% (BldA) [Mass fraction] 98 % Renee MCALLISTER [facility] 05-10-2022 10:29-0500 Systolic blood pressure 114 mm[Hg] Renee MCALLISTER [facility] 05-10-2022 09:35-0500 Body temperature 98.2 [degF] Sravan Martín 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 [facility] 05-10-2022 09:35-0500 Diastolic blood pressure 54 mm[Hg] Sravan Martín [facility] [place] 05-10-2022 09:35-0500 Heart rate 82 /min Sravan Martín [facility] [place] 05-10-2022 09:35-0500 Respiratory rate 16 /min Sravan Martín 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 [facility] 05-10-2022 09:35-0500 SaO2% (BldA) [Mass fraction] 96 % Sravan Martín [facility] [place] 05-10-2022 09:35-0500 Systolic blood pressure 111 mm[Hg] Sravan Resendiz 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 [facility] 05-08-2022 14:28-0500 Body temperature 97.5 [degF] Sachin Claire PT [facility] 05-08-2022 14:28-0500 Diastolic blood pressure 50 mm[Hg] Sachin Claire PT [facility] 05-08-2022 14:28-0500 Heart rate 71 /min Sachin Claire PT [facility] 05-08-2022 14:28-0500 Respiratory rate 16 /min Sachin Claire PT [facility] 05-08-2022 14:28-0500 SaO2% (BldA) [Mass fraction] 97 % Sachin Claire PT [facility] 05-08-2022 14:28-0500 Systolic blood pressure 97 mm[Hg] Sachin Claire PT [facility] 05-05-2022 12:53-0500 Body temperature 98.2 [degF] Renee MCALLISTER [facility] 05-05-2022 12:53-0500 Diastolic blood pressure 64 mm[Hg] Renee MCALLISTER [facility] 05-05-2022 12:53-0500 Heart rate 77 /min Renee MCALLISTER [facility] 05-05-2022 12:53-0500 Respiratory rate 16 /min Renee MCALLISTER [facility] 05-05-2022 12:53-0500 SaO2% (BldA) [Mass fraction] 95 % Renee MCALLISTER [facility] 05-05-2022 12:53-0500 Systolic blood pressure 114 mm[Hg] Renee MCALLISTER [facility] 05-05-2022 09:58-0500 Body temperature 98.1 [degF] Андрей Claros RN [facility] 05-05-2022 09:58-0500 Diastolic blood pressure 62 mm[Hg] Андрей Claros RN [facility] 05-05-2022 09:58-0500 Heart rate 72 /min Андрей Claros RN [facility] 05-05-2022 09:58-0500 Respiratory rate 16 /min Андрей Claros RN [facility] 05-05-2022 09:58-0500 SaO2% (BldA) [Mass fraction] 98 % Андрей Claros RN [facility] 05-05-2022 09:58-0500 Systolic blood pressure 122 mm[Hg] Андрей Claros RN [facility] 05-02-2022 15:52-0500 Body temperature 97.7 [degF] Gena Saab [facility] 05-02-2022 15:52-0500 Diastolic blood pressure 46 mm[Hg] Gena Saab [facility] 05-02-2022 15:52-0500 Heart rate 76 /min Gena Saab [facility] 05-02-2022 15:52-0500 SaO2% (BldA) [Mass fraction] 98 % Gena Saab [facility] 05-02-2022 15:52-0500 Systolic blood pressure 97 mm[Hg] Gena Saab [facility] 05-01-2022 11:41-0500 Body height 170.2 cm eMlida Cook [facility] 05-01-2022 11:41-0500 Body mass index (BMI) [Ratio] 26.63 kg/m2 Melida Cook [facility] 05-01-2022 11:41-0500 Body temperature 97.59 [degF] Melida Cook [facility] 05-01-2022 11:41-0500 Body weight 77.11 kg Melida Cook [facility] 05-01-2022 11:41-0500 Diastolic blood pressure 70 mm[Hg] Melida Cook [facility] 05-01-2022 11:41-0500 Heart rate 70 /min Melida Cook [facility] 05-01-2022 11:41-0500 Respiratory rate 18 /min Melida Cook [facility] 05-01-2022 11:41-0500 SaO2% (BldA) [Mass fraction] 96 % Melida Cook [facility] 05-01-2022 11:41-0500 Systolic blood pressure 110 mm[Hg] Melida Cook [facility] 04-14-2022 13:22-0500 Body height 163.83 cm Varsha Upton LPN [facility].; [facility]. 04-14-2022 13:22-0500 Body mass index (BMI) [Ratio] 30.08 kg/m2 Varsha Upton LPN [facility].; [facility], [facility]. 04-14-2022 13:22-0500 Body surface area Derived from formula 1.87 m2 Varsha Upton LPN [facility].; [employer], [facility]. 04-14-2022 13:22-0500 Body weight 80.74 kg Varsha Upton LPN [facility].; [place] [employer] [facility]. 04-14-2022 13:22-0500 Diastolic blood pressure 71 mm[Hg] Varsha Upton LPN [facility].; [facility], [facility]. 04-14-2022 13:22-0500 Heart rate 80 /min Varsha Upton LPN [facility].; [employer], [facility]. 04-14-2022 13:22-0500 Systolic blood pressure 121 mm[Hg] Varsha Upton LPN [facility].; [employer], [facility]. 04-05-2022 15:31-0500 Body mass index (BMI) [Ratio] 28.04 kg/m2 Sherry George DO Work Phone: [facility] 04-05-2022 15:31-0500 Body weight 81.19 kg Sherry George DO Work Phone: [facility] 04-05-2022 15:31-0500 Diastolic blood pressure 57 mm[Hg] Sherry George DO Work Phone: [facility] 04-05-2022 15:31-0500 Heart rate 78 /min Sherry George DO Work Phone: [facility] 04-05-2022 15:31-0500 Respiratory rate 16 /min Sherry George DO Work Phone: [facility] 04-05-2022 15:31-0500 Systolic blood pressure 106 mm[Hg] Sherry George DO Work Phone: [facility] 03-29-2022 10:07-0500 Body height 163.83 cm Varsha Obrien MA [place] [employer] [email or web address].; [employer] [facility]. 03-29-2022 10:07-0500 Body mass index (BMI) [Ratio] 30.08 kg/m2 Varsha Obrien MA [facility].; [employer], [facility]. 03-29-2022 10:07-0500 Body surface area Derived from formula 1.87 m2 Varsha Obrien MA [facility]. 03-29-2022 10:07-0500 Body weight 80.74 kg Varsha Obrien MA [facility].; [employer], [facility]. 03-29-2022 10:07-0500 Diastolic blood pressure 64 mm[Hg] Varsha Obrien MA [facility].; [employer] [facility]. 03-29-2022 10:07-0500 Heart rate 69 /min Varsha Obrien MA [facility].; [employer], [facility]. 03-29-2022 10:07-0500 Systolic blood pressure 104 mm[Hg] Varsha Obrien MA [facility].; [employer], [facility]. 02-22-2022 13:15-0500 Body height 163.83 cm Varsha Obrien MA [facility].; [employer], [facility]. 02-22-2022 13:15-0500 Body mass index (BMI) [Ratio] 32.79 kg/m2 Varsha Obrien MA [facility].; [employer], [facility]. 02-22-2022 13:15-0500 Body surface area Derived from formula 1.94 m2 Varsha Obrien MA [facility].; [employer], [facility]. 02-22-2022 13:15-0500 Body weight 88 kg Varsha Obrien MA [place] [employer] [facility], [facility].; [employer], [facility]. 02-22-2022 13:15-0500 Diastolic blood pressure 47 mm[Hg] Varsha Obrien MA [place] [employer] [facility] [employer], [employer]. 02-22-2022 13:15-0500 Heart rate 76 /min Varsha Obrien MA [place] [employer] [facility], [facility].; [employer], [facility]. 02-22-2022 13:15-0500 Inhaled oxygen concentration 20 % Varsha Obrien MA [place] [employer] [email or web address].; [employer]. 02-22-2022 13:15-0500 SaO2% (BldA) [Mass fraction] 83 % Varsha Obrien MA [employer]. 02-22-2022 13:15-0500 Systolic blood pressure 90 mm[Hg] Varsha Obrien MA [employer] 12-23-2021 08:19-0400 Body height 163.83 cm Zack Olmos MD Work Phone: [employer]. 12-23-2021 08:19-0400 Body mass index (BMI) [Ratio] 32.79 kg/m2 Zack Olmos MD Work Phone: [employer]. 12-23-2021 08:19-0400 Body surface area Derived from formula 1.94 m2 Zack Olmos MD Work Phone: [employer]. 12-23-2021 08:19-0400 Body weight 88 kg Zack Olmos MD Work Phone: [employer]. 12-23-2021 08:19-0400 Diastolic blood pressure 72 mm[Hg] Zack Olmos MD Work Phone: [employer]. 12-23-2021 08:19-0400 Heart rate 79 /min Zack Olmos MD Work Phone: [employer]. 12-23-2021 08:19-0400 Inhaled oxygen concentration 36 % Zack Olmos MD Work Phone: [employer].; [employer]. 12-23-2021 08:19-0400 SaO2% (BldA) [Mass fraction] 98 % Zack Olmos MD Work Phone: [employer] [facility] 12-23-2021 08:19-0400 Systolic blood pressure 128 mm[Hg] Zack Olmos MD Work Phone: [email or web address].; [facility] 12-23-2021 08:19-0400 4 L/min Zack Olmos MD Work Phone: [email or web address] 09-09-2021 14:33-0400 Body temperature 97.9 [degF] [facility] 09-09-2021 14:33-0400 Diastolic blood pressure 65 mm[Hg] Donaldo [facility] 09-09-2021 14:33-0400 Heart rate 67 /min [facility] 09-09-2021 14:33-0400 Respiratory rate 16 /min [facility] 09-09-2021 14:33-0400 SaO2% (BldA) [Mass fraction] 94 % [facility] 09-09-2021 14:33-0400 Systolic blood pressure 117 mm[Hg] [facility] 09-07-2021 15:08-0400 Body temperature 97.81 [degF] [facility] 09-07-2021 15:08-0400 Diastolic blood pressure 73 mm[Hg] [facility] 09-07-2021 15:08-0400 Heart rate 63 /min Donaldo [facility] 09-07-2021 15:08-0400 Respiratory rate 15 /min Donaldo [facility] 09-07-2021 15:08-0400 SaO2% (BldA) [Mass fraction] 93 % [facility] 09-07-2021 15:08-0400 Systolic blood pressure 120 mm[Hg] Donaldo [facility] 09-07-2021 08:34-0400 Body temperature 98.1 [degF] Андрей Claros RN [facility] 09-07-2021 08:34-0400 Diastolic blood pressure 50 mm[Hg] Андрей Claros RN [facility] 09-07-2021 08:34-0400 Heart rate 66 /min Андрей Claros RN [facility] 09-07-2021 08:34-0400 Respiratory rate 16 /min Андрей Claros RN [facility] 09-07-2021 08:34-0400 SaO2% (BldA) [Mass fraction] 95 % Андрей Claros RN [facility] 09-07-2021 08:34-0400 Systolic blood pressure 98 mm[Hg] Андрей Claros RN [facility] 09-01-2021 10:02-0400 Body temperature 97.9 [degF] Donaldo Thrush [facility] 09-01-2021 10:02-0400 Diastolic blood pressure 85 mm[Hg] Donaldo Thrush [facility] 09-01-2021 10:02-0400 Heart rate 67 /min Donaldo Thrush [facility] 09-01-2021 10:02-0400 Respiratory rate 16 /min Donaldo Thrush [facility] 09-01-2021 10:02-0400 SaO2% (BldA) [Mass fraction] 97 % Donaldo Thrush [facility] 09-01-2021 10:02-0400 Systolic blood pressure 121 mm[Hg] Donaldo Thrush [facility] 08-30-2021 10:10-0400 Body temperature 97.2 [degF] Donaldo Thrush [facility] 08-30-2021 10:10-0400 Diastolic blood pressure 63 mm[Hg] Donaldo Thrush [facility] 08-30-2021 10:10-0400 Heart rate 70 /min Donaldo Thrush [facility] 08-30-2021 10:10-0400 Respiratory rate 16 /min Donaldo Thrush [facility] 08-30-2021 10:10-0400 SaO2% (BldA) [Mass fraction] 95 % Donaldo Thrush [facility] 08-30-2021 10:10-0400 Systolic blood pressure 122 mm[Hg] Donaldo Thrush [facility] 08-26-2021 09:42-0400 Body temperature 98.1 [degF] Андрей Claros RN [facility] 08-26-2021 09:42-0400 Diastolic blood pressure 60 mm[Hg] Андрей Claros RN [facility] 08-26-2021 09:42-0400 Heart rate 78 /min Андрей Claros RN [facility] 08-26-2021 09:42-0400 Respiratory rate 16 /min Андрей Claros RN [facility] 08-26-2021 09:42-0400 SaO2% (BldA) [Mass fraction] 97 % Андрей Claros RN [facility] 08-26-2021 09:42-0400 Systolic blood pressure 112 mm[Hg] Андрей Claros RN [facility] 08-19-2021 09:15-0400 Body temperature 97.81 [degF] Андрей Claros RN [facility] 08-19-2021 09:15-0400 Diastolic blood pressure 62 mm[Hg] Андрей Claros RN [facility] 08-19-2021 09:15-0400 Respiratory rate 16 /min Андрей Claros RN [facility] 08-19-2021 09:15-0400 SaO2% (BldA) [Mass fraction] 94 % Андрей Claros RN [facility] 08-19-2021 09:15-0400 Systolic blood pressure 112 mm[Hg] Андрей Claros RN [facility] 08-17-2021 09:58-0400 SaO2% (BldA) [Mass fraction] 99 % Lenin Ramirez MD Work Phone: [facility] [facility] 08-17-2021 09:46-0400 Body height 170.2 cm Lenin Ramirez MD Work Phone: [facility] 08-17-2021 09:46-0400 Body mass index (BMI) [Ratio] 29.91 kg/m2 Lenin Ramirez MD Work Phone: [facility] 08-17-2021 09:46-0400 Body weight 86.64 kg Lenin Ramirez MD Work Phone: [facility] 08-17-2021 09:46-0400 Diastolic blood pressure 53 mm[Hg] Lenin Ramirez MD Work Phone: [facility] 08-17-2021 09:46-0400 Heart rate 85 /min Lenin Ramirez MD Work Phone: [facility] 08-17-2021 09:46-0400 Systolic blood pressure 114 mm[Hg] Lenin Ramirez MD Work Phone: [facility] 08-10-2021 09:01-0400 Body temperature 98.01 [degF] Андрей Claros HALEY [facility] 08-10-2021 09:01-0400 Diastolic blood pressure 60 mm[Hg] Андрей Claros RN [facility] 08-10-2021 09:01-0400 Heart rate 94 /min Андрей Claros RN [facility] 08-10-2021 09:01-0400 Respiratory rate 16 /min Андрей Claros RN [facility] 08-10-2021 09:01-0400 SaO2% (BldA) [Mass fraction] 96 % Андрей Claros RN [facility] 08-10-2021 09:01-0400 Systolic blood pressure 106 mm[Hg] Андрей Claros RN [facility] 08-03-2021 09:07-0400 Body temperature 98.2 [degF] Андрей Claros RN [facility] 08-03-2021 09:07-0400 Diastolic blood pressure 68 mm[Hg] Андрей Claros RN [facility] 08-03-2021 09:07-0400 Heart rate 67 /min Андрей Claros RN [facility] 08-03-2021 09:07-0400 Respiratory rate 16 /min Андрей Claros RN [facility] 08-03-2021 09:07-0400 SaO2% (BldA) [Mass fraction] 97 % Андрей Claros RN [facility] 08-03-2021 09:07-0400 Systolic blood pressure 104 mm[Hg] Андрей Clarso RN [facility] 07-27-2021 09:02-0400 Body temperature 97.9 [degF] Андрей Claros RN [facility] 07-27-2021 09:02-0400 Diastolic blood pressure 78 mm[Hg] Андрей Claros RN [facility] 07-27-2021 09:02-0400 Heart rate 93 /min Андрей Claros RN [facility] 07-27-2021 09:02-0400 Respiratory rate 16 /min Андрей Claros RN [facility] 07-27-2021 09:02-0400 SaO2% (BldA) [Mass fraction] 93 % Андрей Claros RN [facility] 07-27-2021 09:02-0400 Systolic blood pressure 138 mm[Hg] Андрей Claros RN [facility] 07-15-2021 09:11-0400 Body temperature 98.91 [degF] Андрей Claros RN [facility] 07-15-2021 09:11-0400 Diastolic blood pressure 74 mm[Hg] Андрей Claros RN [facility] 07-15-2021 09:11-0400 Heart rate 76 /min Андрей Claros RN [facility] 07-15-2021 09:11-0400 Respiratory rate 16 /min Андрей Claros RN [facility] 07-15-2021 09:11-0400 SaO2% (BldA) [Mass fraction] 96 % Андрей Claros RN [facility] 07-15-2021 09:11-0400 Systolic blood pressure 118 mm[Hg] Андрей Claros RN [facility] 07-13-2021 09:20-0400 Body temperature 98.01 [degF] Андрей Claros RN [facility] 07-13-2021 09:20-0400 Diastolic blood pressure 62 mm[Hg] Андрей Claros RN [facility] 07-13-2021 09:20-0400 Heart rate 74 /min Андрей Claros RN [facility] 07-13-2021 09:20-0400 Respiratory rate 16 /min Андрей Claros RN [facility] 07-13-2021 09:20-0400 SaO2% (BldA) [Mass fraction] 97 % Андрей Claros RN [facility] 07-13-2021 09:20-0400 Systolic blood pressure 112 mm[Hg] Андрей Claros RN [facility] 07-06-2021 13:24-0400 Body height 163.83 cm Randi Silvestre [facility], [facility] [employer]. 07-06-2021 13:24-0400 Body mass index (BMI) [Ratio] 31.6 kg/m2 Randi Silvestre [facility], [facility].; [address] [employer] [facility], [facility]. 07-06-2021 13:24-0400 Body surface area Derived from formula 1.91 m2 Randi Silvestre [facility], [facility].; [facility] [facility], [facility]. 07-06-2021 13:24-0400 Body weight 84.82 kg [facility], [facility].; [employer]. 07-06-2021 13:24-0400 Diastolic blood pressure 65 mm[Hg] Randi Silvestre [facility], [facility].; [facility] [facility], [facility]. 07-06-2021 13:24-0400 Heart rate 90 /min Randi Silvestre [facility], [facility].; [employer], [facility]. 07-06-2021 13:24-0400 Inhaled oxygen concentration 32 % Randi Silvestre [facility]. 07-06-2021 13:24-0400 SaO2% (BldA) [Mass fraction] 88 % Randi Silvestre [facility].; [facility], [facility]. 07-06-2021 13:24-0400 Systolic blood pressure 106 mm[Hg] Randi Silvestre [facility].; [facility], [facility]. 07-06-2021 13:24-0400 3 L/min Randi Silvestre [facility].; [facility], [facility]. 07-06-2021 09:53-0400 Body temperature 98.01 [degF] Андрей Claros RN [facility] 07-06-2021 09:53-0400 Diastolic blood pressure 80 mm[Hg] Андрей Claros RN [facility] 07-06-2021 09:53-0400 Heart rate 76 /min Андрей Claros RN [facility] 07-06-2021 09:53-0400 Respiratory rate 16 /min Андрей Claros RN [facility] 07-06-2021 09:53-0400 SaO2% (BldA) [Mass fraction] 97 % Андрей Claros RN [facility] 07-06-2021 09:53-0400 Systolic blood pressure 136 mm[Hg] Андрей Claros RN [facility] 07-02-2021 09:14-0400 Body height 163.83 cm Varsha Upton LPN [facility], [facility].; [facility], [facility]. 07-02-2021 09:14-0400 Body mass index (BMI) [Ratio] 31.6 kg/m2 Varsha Upton LPN [facility].; [facility], [facility]. 07-02-2021 09:14-0400 Body surface area Derived from formula 1.91 m2 Varsha Upton LPN [facility], [facility].; [facility], [facility]. 07-02-2021 09:14-0400 Body temperature 101.6 [degF] Varsha Upton LPN [facility], [facility].; [facility], [facility]. 07-02-2021 09:14-0400 Body weight 84.82 kg Varsha Upton LPN [facility], [facility].; [facility]. 07-02-2021 09:14-0400 Diastolic blood pressure 70 mm[Hg] Varsha Upton LPN [facility].; [facility]. 07-02-2021 09:14-0400 Heart rate 112 /min Varsha Upton LPN [facility].; [facility]. 07-02-2021 09:14-0400 Inhaled oxygen concentration 20 % Varsha Upton LPN [facility].; [facility]. 07-02-2021 09:14-0400 SaO2% (BldA) [Mass fraction] 78 % Varsha Upton LPN [facility].; [facility] 07-02-2021 09:14-0400 Systolic blood pressure 136 mm[Hg] Varsha Upton LPN [facility].; [facility]. 06-29-2021 09:39-0400 Body temperature 98.1 [degF] Андрей Claros RN [facility] 06-29-2021 09:39-0400 Diastolic blood pressure 62 mm[Hg] Андрей Hyacinth RN [facility] 06-29-2021 09:39-0400 Heart rate 73 /min Андрей Hyacinth RN [facility] 06-29-2021 09:39-0400 Respiratory rate 18 /min Андрей Hyacinth HALEY [facility] 06-29-2021 09:39-0400 Systolic blood pressure 108 mm[Hg] Андрей Hyacinth RN [facility] 06-22-2021 11:15-0400 Body temperature 97.81 [degF] Андрей Claros RN [facility] 06-22-2021 11:15-0400 Diastolic blood pressure 60 mm[Hg] Андрей Hyacinth RN [facility] 06-22-2021 11:15-0400 Heart rate 84 /min Андрей Claros RN [facility] 06-22-2021 11:15-0400 Respiratory rate 16 /min Андрей Claros RN [facility] 06-22-2021 11:15-0400 SaO2% (BldA) [Mass fraction] 89 % Андрей Claros RN [facility] 06-22-2021 11:15-0400 Systolic blood pressure 110 mm[Hg] Андрей Claros RN [facility] 06-15-2021 11:06-0400 Body temperature 98.49 [degF] Андрей Claros RN [facility] 06-15-2021 11:06-0400 Diastolic blood pressure 68 mm[Hg] Андрей Claros RN [facility] 06-15-2021 11:06-0400 Heart rate 78 /min Андрей Claros RN [facility] 06-15-2021 11:06-0400 Respiratory rate 16 /min Андрей Claros RN [facility] 06-15-2021 11:06-0400 SaO2% (BldA) [Mass fraction] 89 % Андрей Claros RN [facility] 06-15-2021 11:06-0400 Systolic blood pressure 104 mm[Hg] Андрей Claros RN [facility] 06-08-2021 10:05-0400 Body temperature 98.01 [degF] Андрей Claros RN [facility] 06-08-2021 10:05-0400 Diastolic blood pressure 58 mm[Hg] Андрей Claros RN [facility] 06-08-2021 10:05-0400 Heart rate 76 /min Андрей Claros RN [facility] 06-08-2021 10:05-0400 Respiratory rate 16 /min Андрей Claros RN [facility] 06-08-2021 10:05-0400 SaO2% (BldA) [Mass fraction] 92 % Андрей Claros RN [facility] 06-08-2021 10:05-0400 Systolic blood pressure 104 mm[Hg] Андрей Claros RN [facility] 06-01-2021 09:29-0400 Body temperature 98.49 [degF] Андрей Claros RN [facility] 06-01-2021 09:29-0400 Diastolic blood pressure 60 mm[Hg] Андрей Claros RN [facility] 06-01-2021 09:29-0400 Heart rate 62 /min Андрей Claros RN [facility] 06-01-2021 09:29-0400 Respiratory rate 18 /min Андрей Claros RN [facility] 06-01-2021 09:29-0400 SaO2% (BldA) [Mass fraction] 94 % Андрей Claros RN [facility] 06-01-2021 09:29-0400 Systolic blood pressure 104 mm[Hg] Андрей Claros RN [facility] 05-26-2021 09:46-0400 Body temperature 97.5 [degF] Андрей Claros RN [facility] 05-26-2021 09:46-0400 Diastolic blood pressure 60 mm[Hg] Андрей Claros RN [facility] 05-26-2021 09:46-0400 Heart rate 77 /min Андрей Claros RN [facility] 05-26-2021 09:46-0400 Respiratory rate 18 /min Андрей Claros RN [facility] 05-26-2021 09:46-0400 SaO2% (BldA) [Mass fraction] 93 % Андрей Claros RN [facility] 05-26-2021 09:46-0400 Systolic blood pressure 138 mm[Hg] Андрей Claros RN [facility] 05-17-2021 10:23-0500 Body temperature 98.4 [degF] Андрей Claros RN [facility] 05-17-2021 10:23-0500 Diastolic blood pressure 60 mm[Hg] Андрей Claros RN [facility] 05-17-2021 10:23-0500 Heart rate 74 /min Андрей Claros RN [facility] 05-17-2021 10:23-0500 Respiratory rate 16 /min Андрей Claros RN [facility] 05-17-2021 10:23-0500 SaO2% (BldA) [Mass fraction] 92 % Андрей Claros RN [facility] 05-17-2021 10:23-0500 Systolic blood pressure 120 mm[Hg] Андрей Claros RN [facility] 05-05-2021 10:49-0500 Body temperature 97.7 [degF] Андрйе Claros RN [facility] 05-05-2021 10:49-0500 Diastolic blood pressure 74 mm[Hg] Андрей Claros RN [facility] 05-05-2021 10:49-0500 Heart rate 67 /min Андрей Claros RN [facility] 05-05-2021 10:49-0500 Respiratory rate 16 /min Андрей Claros RN [facility] 05-05-2021 10:49-0500 SaO2% (BldA) [Mass fraction] 96 % Андрей Claros RN [facility] 05-05-2021 10:49-0500 Systolic blood pressure 112 mm[Hg] Андрей Claros RN [facility] 04-28-2021 10:01-0500 Body temperature 97.59 [degF] Андрей Claros RN [facility] 04-28-2021 10:01-0500 Diastolic blood pressure 50 mm[Hg] Андрей Claros RN [facility] 04-28-2021 10:01-0500 Heart rate 76 /min Андрей Claros RN [facility] 04-28-2021 10:01-0500 Respiratory rate 16 /min Андрей Claros RN [facility] 04-28-2021 10:01-0500 SaO2% (BldA) [Mass fraction] 97 % Андрей Claros RN [facility] 04-28-2021 10:01-0500 Systolic blood pressure 112 mm[Hg] Андрей Claros RN [facility] 04-23-2021 11:42-0500 Body temperature 97.59 [degF] Андрей Claros RN [facility] 04-23-2021 11:42-0500 Diastolic blood pressure 70 mm[Hg] Андрей Claros RN [facility] 04-23-2021 11:42-0500 Heart rate 76 /min Андрей Claros RN [facility] 04-23-2021 11:42-0500 Respiratory rate 16 /min Андрей Claros RN [facility] 04-23-2021 11:42-0500 SaO2% (BldA) [Mass fraction] 97 % нАдрей Claros RN [facility] 04-23-2021 11:42-0500 Systolic blood pressure 118 mm[Hg] Андрей Claros RN [facility] 04-09-2021 11:23-0500 Body temperature 98.01 [degF] Андрей Claros RN [facility] 04-09-2021 11:23-0500 Diastolic blood pressure 50 mm[Hg] Андрей Claros RN [facility] 04-09-2021 11:23-0500 Heart rate 64 /min Андрей Claros RN [facility] 04-09-2021 11:23-0500 Respiratory rate 16 /min Андрей Claros RN [facility] 04-09-2021 11:23-0500 SaO2% (BldA) [Mass fraction] 95 % Андрей Claros RN [facility] 04-09-2021 11:23-0500 Systolic blood pressure 106 mm[Hg] Андрей Claros RN [facility] 04-01-2021 09:25-0500 Body height 163.83 cm Rosy Tavarez LPN [facility], [facility].; [facility]. 04-01-2021 09:25-0500 Body mass index (BMI) [Ratio] 31.6 kg/m2 Rosy Tavarez LPN [facility], [facility].; [facility], [facility] 04-01-2021 09:25-0500 Body surface area Derived from formula 1.91 m2 Rosy Tavarez LPN [facility].; [facility]. 04-01-2021 09:25-0500 Body weight 84.82 kg Rosy Tavarez [facility].; [facility]. 04-01-2021 09:25-0500 Diastolic blood pressure 68 mm[Hg] Rosy Tavarez [facility].; [facility]. 04-01-2021 09:25-0500 Heart rate 74 /min [facility]. 04-01-2021 09:25-0500 Systolic blood pressure 118 mm[Hg] Rosy Tavarez [facility].; [facility]. 03-31-2021 10:24-0500 Body temperature 98.2 [degF] Андрей Claros RN [facility] 03-31-2021 10:24-0500 Diastolic blood pressure 60 mm[Hg] Андрей Claros RN [facility] 03-31-2021 10:24-0500 Heart rate 65 /min Андрей Claros RN [facility] 03-31-2021 10:24-0500 Respiratory rate 16 /min Андрей Claros RN [facility] 03-31-2021 10:24-0500 SaO2% (BldA) [Mass fraction] 95 % Андрей Claros RN [facility] 03-31-2021 10:24-0500 Systolic blood pressure 104 mm[Hg] Андрей Claros RN [facility] 03-22-2021 14:10-0500 Body temperature 98.91 [degF] Андрей Claros RN [facility] 03-22-2021 14:10-0500 Diastolic blood pressure 58 mm[Hg] Андрей Claros RN [facility] 03-22-2021 14:10-0500 Heart rate 68 /min Андрей Claros RN [facility] 03-22-2021 14:10-0500 Respiratory rate 16 /min Андрей Claros RN [facility] 03-22-2021 14:10-0500 SaO2% (BldA) [Mass fraction] 97 % Андрей Claros RN [facility] 03-22-2021 14:10-0500 Systolic blood pressure 104 mm[Hg] Андрей Claros RN [facility] 03-19-2021 15:04-0500 Body temperature 97.9 [degF] Андрей Claros RN [facility] 03-19-2021 15:04-0500 Diastolic blood pressure 48 mm[Hg] Андрей Claros RN [facility] 03-19-2021 15:04-0500 Heart rate 62 /min Андрей Claros RN [facility] 03-19-2021 15:04-0500 Respiratory rate 16 /min Андрей Claros RN [facility] 03-19-2021 15:04-0500 SaO2% (BldA) [Mass fraction] 96 % Андрей Claros RN [facility] 03-19-2021 15:04-0500 Systolic blood pressure 98 mm[Hg] Андрей Claros RN [facility] 03-17-2021 09:16-0500 Body temperature 98.8 [degF] Ewa Garcia [facility] 03-17-2021 09:16-0500 Diastolic blood pressure 58 mm[Hg] Ewa Garcia [facility] 03-17-2021 09:16-0500 Heart rate 74 /min Ewa Garcia [facility] 03-17-2021 09:16-0500 Respiratory rate 16 /min Ewa Garcia [facility] 03-17-2021 09:16-0500 SaO2% (BldA) [Mass fraction] 95 % Ewa Garcia [facility] 03-17-2021 09:16-0500 Systolic blood pressure 116 mm[Hg] Ewa Garcia [facility] 03-10-2021 12:19-0500 Body temperature 98.1 [degF] Андрей Claros RN [facility] 03-10-2021 12:19-0500 Diastolic blood pressure 60 mm[Hg] Андрей Claros RN [facility] 03-10-2021 12:19-0500 Heart rate 64 /min Андрей Claros RN [facility] 03-10-2021 12:19-0500 Respiratory rate 14 /min Андрей Claros RN [facility] 03-10-2021 12:19-0500 SaO2% (BldA) [Mass fraction] 97 % Андрей Claros RN [facility] 03-10-2021 12:19-0500 Systolic blood pressure 104 mm[Hg] Андрей Claros RN [facility] 03-05-2021 11:46-0500 Body mass index (BMI) [Ratio] 28.19 kg/m2 Melida Cook [facility] 03-05-2021 11:46-0500 Body temperature 97.59 [degF] Melida Cook RN [facility] 03-05-2021 11:46-0500 Body weight 81.65 kg Melida Cook RN [facility] 03-05-2021 11:46-0500 Diastolic blood pressure 70 mm[Hg] Melida Cook RN [facility] 03-05-2021 11:46-0500 Heart rate 65 /min Melida Cook RN [facility] 03-05-2021 11:46-0500 Respiratory rate 18 /min Melida Cook RN [facility] 03-05-2021 11:46-0500 SaO2% (BldA) [Mass fraction] 96 % Melida Cook [facility] 03-05-2021 11:46-0500 Systolic blood pressure 110 mm[Hg] Melida Cook [facility] 03-03-2021 11:38-0500 Body temperature 98.01 [degF] Андрей Claros RN [facility] 03-03-2021 11:38-0500 Diastolic blood pressure 62 mm[Hg] Андрей Claros RN [facility] 03-03-2021 11:38-0500 Heart rate 77 /min Андрей Claros RN [facility] 03-03-2021 11:38-0500 Respiratory rate 16 /min Андрей Claros RN [facility] 03-03-2021 11:38-0500 SaO2% (BldA) [Mass fraction] 98 % Андрей Claros RN [facility] 03-03-2021 11:38-0500 Systolic blood pressure 104 mm[Hg] Андрей Claros RN [facility] 02-19-2021 12:01-0500 Body temperature 98.01 [degF] Rosy Rodriguez RN [facility] 02-19-2021 12:01-0500 Heart rate 70 /min Rosy Rodriguez RN [facility] 02-19-2021 12:01-0500 Respiratory rate 16 /min Rosy Rodriguez RN [facility] 02-19-2021 12:01-0500 SaO2% (BldA) [Mass fraction] 98 % Rosy Rodriguez RN [facility] 02-15-2021 13:04-0500 Body temperature 98.01 [degF] Rosy Rodriguez RN [facility] 02-15-2021 13:04-0500 Diastolic blood pressure 70 mm[Hg] Rosy Rodriguez RN [facility] 02-15-2021 13:04-0500 Heart rate 77 /min Rosy Rodriguez RN [facility] 02-15-2021 13:04-0500 Respiratory rate 16 /min Rosy Rodriguez RN [facility] 02-15-2021 13:04-0500 SaO2% (BldA) [Mass fraction] 94 % Rosy Rodriguez RN [facility] 02-15-2021 13:04-0500 Systolic blood pressure 120 mm[Hg] Rsoy Rodriguez RN [facility] 02-05-2021 14:04-0500 Body temperature 98.01 [degF] Rosy Rodriguez RN [facility] 02-05-2021 14:04-0500 Heart rate 70 /min Rosy Rodriguez RN [facility] 02-05-2021 14:04-0500 Respiratory rate 16 /min Rosy Rodriguez RN [facility] 02-05-2021 14:04-0500 SaO2% (BldA) [Mass fraction] 96 % Rosy Rodriguez RN [facility] 02-03-2021 10:57-0500 Body height 170.2 cm Jalil Sparks MD Work Phone: [facility] 02-03-2021 10:57-0500 Body mass index (BMI) [Ratio] 27.91 kg/m2 Jalil Sparks MD Work Phone: [facility] 02-03-2021 10:57-0500 Body temperature 97.3 [degF] Jalil Sparks MD Work Phone: [facility] 02-03-2021 10:57-0500 Body weight 80.83 kg Jalil Sparks MD Work Phone: [facility] 02-03-2021 10:57-0500 Diastolic blood pressure 58 mm[Hg] Jalil Sparks MD Work Phone: [facility] 02-03-2021 10:57-0500 Heart rate 75 /min Jalil Sparks MD Work Phone: [facility] 02-03-2021 10:57-0500 SaO2% (BldA) [Mass fraction] 96 % Jalil Sparks MD Work Phone: [facility] 02-03-2021 10:57-0500 Systolic blood pressure 111 mm[Hg] Jalil Sparks MD Work Phone: [facility] 02-03-2021 08:24-0500 Body temperature 98.1 [degF] Bonnie Ferguson RN [facility] 02-03-2021 08:24-0500 Diastolic blood pressure 50 mm[Hg] Bonnie Ferguson RN [facility] 02-03-2021 08:24-0500 Heart rate 75 /min Bonnie Ferguson RN [facility] 02-03-2021 08:24-0500 Respiratory rate 18 /min Bonnie Ferguson RN [facility] 02-03-2021 08:24-0500 SaO2% (BldA) [Mass fraction] 96 % Bonnie Ferguson [facility] 02-03-2021 08:24-0500 Systolic blood pressure 132 mm[Hg] Bonnie Ferguson RN [facility] 02-01-2021 14:13-0500 Body temperature 98.01 [degF] Rosy Rodriguez RN [facility] 02-01-2021 14:13-0500 Respiratory rate 16 /min Rosy Rodriguez RN [facility] 02-01-2021 14:13-0500 SaO2% (BldA) [Mass fraction] 96 % Rosy Rodriguez RN [facility] 01-29-2021 00:00-0500 Body temperature 98.01 [degF] Rosy Rodriguez RN [facility] 01-29-2021 00:00-0500 Diastolic blood pressure 60 mm[Hg] Rosy Rodriguez RN [facility] 01-29-2021 00:00-0500 Heart rate 78 /min Rosy Rodriguez RN [facility] 01-29-2021 00:00-0500 Respiratory rate 16 /min Rosy Jennifer RN [facility] 01-29-2021 00:00-0500 SaO2% (BldA) [Mass fraction] 96 % Rosy Rodriguez RN [facility] 01-29-2021 00:00-0500 Systolic blood pressure 110 mm[Hg] Rosy Rodriguez RN [facility] 01-27-2021 10:02-0500 Body temperature 98.01 [degF] Rosy Rodriguez RN [facility] 01-27-2021 10:02-0500 Diastolic blood pressure 60 mm[Hg] Rosy Rodriguez RN [facility] 01-27-2021 10:02-0500 Heart rate 80 /min Rosy Rodriguez RN [facility] 01-27-2021 10:02-0500 Respiratory rate 16 /min Rosy Rodriguez RN [facility] 01-27-2021 10:02-0500 SaO2% (BldA) [Mass fraction] 94 % Rosy Fulda RN [facility] 01-27-2021 10:02-0500 Systolic blood pressure 110 mm[Hg] Rosy Jennifer RN [facility] 01-25-2021 10:00-0500 Body temperature 98.01 [degF] Rosy Jennifer RN [facility] 01-25-2021 10:00-0500 Diastolic blood pressure 70 mm[Hg] Rosy Rodriguez RN [facility] 01-25-2021 10:00-0500 Heart rate 88 /min Rosy Fulda RN [facility] 01-25-2021 10:00-0500 Respiratory rate 16 /min Rosy Fulda RN [facility] 01-25-2021 10:00-0500 SaO2% (BldA) [Mass fraction] 98 % Rosy Jennifer RN [facility] 01-25-2021 10:00-0500 Systolic blood pressure 110 mm[Hg] Rosy Jennifer RN [facility] 01-22-2021 13:55-0500 Body mass index (BMI) [Ratio] 27.72 kg/m2 Rosy Jennifer RN [facility] 01-22-2021 13:55-0500 Body weight 80.29 kg Rosy Jennifer RN [facility] 01-22-2021 13:55-0500 Diastolic blood pressure 80 mm[Hg] Rosy Rodriguez RN [facility] [facility]22[facility]21 13:55-0500 Systolic blood pressure 101 mm[Hg] Rosy Rodriguez RN [facility] 01-20-2021 10:22-0500 Body temperature 98.2 [degF] Alyssa Cortez RN [facility] 01-20-2021 10:22-0500 Heart rate 63 /min Alyssa Cortez RN [facility] 01-20-2021 10:22-0500 SaO2% (BldA) [Mass fraction] 93 % Alyssa Cortez RN [facility] 01-13-2021 15:21-0400 Body height 170.2 cm Jalil Sparks MD Work Phone: [place] [address]-03-2021 15:21-0400 Body temperature 97.59 [degF] Jalil Sparks MD Work Phone: [facility] 01-13-2021 15:21-0400 Diastolic blood pressure 73 mm[Hg] Jalil Sparks MD Work Phone: [facility] 01-13-2021 15:21-0400 Heart rate 68 /min Jalil Sparks MD Work Phone: [facility] 01-13-2021 15:21-0400 SaO2% (BldA) [Mass fraction] 91 % Jalil Sparks MD Work Phone: [facility] 01-13-2021 15:21-0400 Systolic blood pressure 146 mm[Hg] Jalil Sparks MD Work Phone: [facility] 01-04-2021 14:50-0400 Body height 170.2 cm [place] Hawk [employer]ITY [employer]IVING INSTRUCTOR Work Phone: [facility] 01-04-2021 14:50-0400 Body mass index (BMI) [Ratio] 29.76 kg/m2 Park Hawk COMMUNITY LIVING INSTRUCTOR Work Phone: [facility] 01-04-2021 14:50-0400 Body weight 86.18 kg Park Hawk COMMUNITY LIVING INSTRUCTOR Work Phone: [facility] 01-04-2021 14:50-0400 Diastolic blood pressure 57 mm[Hg] Park Hawk COMMUNITY LIVING INSTRUCTOR Work Phone: [facility] 01-04-2021 14:50-0400 Heart rate 74 /min Park Hawk COMMUNITY LIVING INSTRUCTOR Work Phone: [facility] 01-04-2021 14:50-0400 Systolic blood pressure 132 mm[Hg] Park Hawk COMMUNITY LIVING INSTRUCTOR Work Phone: [facility] 12-17-2020 12:11-0400 Body height 170.2 cm Lenin Ramirez MD Work Phone: [facility] 12-17-2020 12:11-0400 Body mass index (BMI) [Ratio] 30.23 kg/m2 Lenin Ramirez MD Work Phone: [facility] 12-17-2020 12:11-0400 Body weight 87.54 kg Lenin Ramirez MD Work Phone: [facility] 12-17-2020 12:11-0400 Diastolic blood pressure 77 mm[Hg] Lenin Ramirez MD Work Phone: [facility] 12-17-2020 12:11-0400 Heart rate 63 /min Lenin Ramirez MD Work Phone: [facility] 12-17-2020 12:11-0400 SaO2% (BldA) [Mass fraction] 90 % Lenin Ramirez MD Work Phone: [facility] 12-17-2020 12:11-0400 Systolic blood pressure 129 mm[Hg] Lenin Ramirez MD Work Phone: [facility] 11-23-2020 12:52-0400 Body height 170.2 cm Park Hawk CNP Work Phone: [facility] 11-23-2020 12:52-0400 Body mass index (BMI) [Ratio] 29.44 kg/m2 Park Hawk CNP Work Phone: [facility] 11-23-2020 12:52-0400 Body weight 85.28 kg Park Hawk CNP Work Phone: [facility] 11-23-2020 12:52-0400 Diastolic blood pressure 76 mm[Hg] Park Hawk CNP Work Phone: [facility] 11-23-2020 12:52-0400 Heart rate 63 /min Park Hawk COMMUNITY LIVING INSTRUCTOR Work Phone: [facility] 11-23-2020 12:52-0400 SaO2% (BldA) [Mass fraction] 90 % Park Hawk COMMUNITY LIVING INSTRUCTOR Work Phone: [facility] 11-23-2020 12:52-0400 Systolic blood pressure 131 mm[Hg] Park Hawk COMMUNITY LIVING INSTRUCTOR Work Phone: [facility] 10-26-2020 07:55-0400 Body height 170.2 cm Park Hawk CNP Work Phone: [facility] 10-26-2020 07:55-0400 Body mass index (BMI) [Ratio] 29.29 kg/m2 Park Hawk CNP Work Phone: [facility] 10-26-2020 07:55-0400 Body weight 84.82 kg Park Hawk CNP Work Phone: [facility] 10-26-2020 07:55-0400 Diastolic blood pressure 77 mm[Hg] Park Hawk CNP Work Phone: [facility] 10-26-2020 07:55-0400 Heart rate 66 /min Park Hawk CNP Work Phone: [facility] 10-26-2020 07:55-0400 SaO2% (BldA) [Mass fraction] 84 % Park Hawk CNP Work Phone: [facility] 10-26-2020 07:55-0400 Systolic blood pressure 143 mm[Hg] Park Hawk CNP Work Phone: [facility] 10-21-2020 08:11-0400 Diastolic blood pressure 89 mm[Hg] Mil Dee MD Work Phone: [facility] 10-21-2020 08:11-0400 Systolic blood pressure 164 mm[Hg] Mil Dee MD Work Phone: [facility] 10-21-2020 08:07-0400 Body height 170.2 cm Mil Dee MD Work Phone: [facility] 10-21-2020 08:07-0400 Body temperature 98.2 [degF] Mil Dee MD Work Phone: [facility] 10-21-2020 08:07-0400 Heart rate 74 /min Mil Dee MD Work Phone: [facility] 10-06-2020 08:15-0400 [facility] height [facility].83 [facility] 10-06-2020 08:15-0400 Body mass index (BMI) [Ratio] 31.26 kg/m2 Muna Townsend [facility], [facility].; [facility]. 10-06-2020 08:15-0400 Body surface area Derived from formula 1.9 m2 [facility], [facility].; [facility]. 10-06-2020 08:15-0400 Body weight 83.92 kg Muna Townsend [facility], [facility].; [facility]. 10-06-2020 08:15-0400 Diastolic blood pressure 73 mm[Hg] [facility], [facility].; [facility], [facility]. 10-06-2020 08:15-0400 Heart rate 75 /min [facility], [facility].; [facility]. 10-06-2020 08:15-0400 Inhaled oxygen concentration 20 % [facility]. 10-06-2020 08:15-0400 SaO2% (BldA) [Mass fraction] 97 % [facility], [facility].; [place] [facility], [facility]. 10-06-2020 08:15-0400 Systolic blood pressure 152 mm[Hg] [facility], [facility].; [place] [email or web address]. 09-30-2020 08:21-0400 Body mass index (BMI) [Ratio] 28.35 kg/m2 Leonila Walls RN [facility] 09-30-2020 [id number] Body weight 82.1 kg Leonila Walls RN [facility] 09-30-2020 08:21-0400 Diastolic blood pressure 73 mm[Hg] Leonila Walls RN [facility] 09-30-2020 08:21-0400 Heart rate 55 /min Leonila Walls RN [facility] 09-30-2020 08:21-0400 Respiratory rate 16 /min Leonila Walls RN [facility] 09-30-2020 [id number] SaO2% (BldA) [Mass fraction] 98 % Leonila Walls RN [facility] 09-30-2020 [id number] Systolic blood pressure 129 mm[Hg] Leonila Walls RN [facility] 08-11-2020 08:26-0400 Body height 163.83 cm [facility], [facility].; [facility]. 08-11-2020 [id number] Body mass index (BMI) [Ratio] 33.29 kg/m2 [facility], [facility].; [facility]. 08-11-2020 08:0400 Body surface area Derived from formula 1.95 m2 [facility], [facility].; [facility], [facility]. 08-11-2020 08:0400 Body weight 89.36 kg [facility], [facility].; [facility], [facility]. 08-11-2020 [id number] Diastolic blood pressure 64 mm[Hg] [facility], [facility].; [facility], [facility]. 08-11-2020 08:0400 Heart rate 71 /min [facility], [facility].; [facility], [facility]. 08-11-2020 08:26-0400 Systolic blood pressure 138 mm[Hg] [facility], [facility].; [place] [facility], [facility]. 08-03-2020 13:[id number] Body mass index (BMI) [Ratio] 30.85 kg/m2 Leonila Walls RN [facility] 08-03-2020 13:0400 Body weight 89.36 kg Leonila Walls RN [facility] 08-03-2020 13:0400 Diastolic blood pressure 76 mm[Hg] Leonila Walls RN [facility] 08-03-2020 13:[id number] Heart rate 68 /min Leonila Walls RN [facility] 08-03-2020 13:0400 Respiratory rate 16 /min Leonila [facility] 08-03-2020 13:21-0400 SaO2% (BldA) [Mass fraction] 93 % Leonila [facility] 08-03-2020 13:21-0400 Systolic blood pressure 139 mm[Hg] Leonilaeloy Walls [facility] 06-19-2020 10:40-0400 BMI (Body Mass Index) 31.92 kg/m2 [facility] 06-19-2020 10:40-0400 Body weight 92.44 kg [facility] 06-19-2020 10:40-0400 BP Diastolic 79 mm[Hg] [facility] 06-19-2020 10:40-0400 BP Systolic 147 mm[Hg] [facility] 06-19-2020 10:40-0400 Pulse (Heart Rate) 62 /min [facility] 06-19-2020 10:40-0400 Pulse Oximetry 94 % [facility] 06-19-2020 10:40-0400 Respiratory Rate 16 /min [facility] 04-20-2020 10:18-0500 BMI (Body Mass Index) 32.11 kg/m2 [facility] 04-20-2020 10:18-0500 Body weight 92.99 kg [facility] 04-20-2020 10:18-0500 BP Diastolic 76 mm[Hg] [facility] 04-20-2020 10:18-0500 BP Systolic 129 mm[Hg] [facility] 04-20-2020 10:18-0500 Pulse (Heart Rate) 66 /min [facility] 04-20-2020 10:18-0500 Pulse Oximetry 96 % [facility] 04-20-2020 10:18-0500 Respiratory Rate 16 /min [facility] 04-07-2020 09:08-0500 Body height 163.83 cm Muna Townsend LPN [facility], [facility]. 04-07-2020 09:08-0500 Body mass index (BMI) [Ratio] 34.98 kg/m2 [facility], [facility].; [facility], [facility]. 04-07-2020 09:08-0500 Body surface area Derived from formula 2 m2 Muna Townsend [facility], [facility].; [facility], [facility]. 04-07-2020 09:08-0500 Body weight 93.9 kg Muna Townsend [facility], [facility].; [facility], [facility]. 04-07-2020 09:08-0500 Diastolic blood pressure 76 mm[Hg] Muna Townsend [facility], [facility].; [facility], [facility]. 04-07-2020 09:08-0500 Heart rate 91 /min Muna Townsend [facility], [facility].; [facility], [facility]. 04-07-2020 09:08-0500 Systolic blood pressure 137 mm[Hg] Muna Townsend [facility], [facility].; [facility], [facility]. 03-26-2020 10:27-0500 BP Diastolic 64 mm[Hg] [facility] 03-26-2020 10:27-0500 BP Systolic 130 mm[Hg] Lenin Ramirez [facility] 03-26-2020 10:27-0500 Pulse (Heart Rate) 62 /min Lenin Ramirez [facility] 02-17-2020 10:14-0500 BMI (Body Mass Index) 31.84 kg/m2 [facility] 02-17-2020 10:14-0500 Body weight 92.22 kg [facility] 02-17-2020 10:14-0500 BP Diastolic 74 mm[Hg] [facility] 02-17-2020 10:14-0500 BP Systolic 140 mm[Hg] [facility] 02-17-2020 10:14-0500 Pulse (Heart Rate) 62 /min [facility] 02-17-2020 10:14-0500 Pulse Oximetry 97 % [facility] 02-17-2020 10:14-0500 Respiratory Rate 16 /min [facility] 12-23-2019 10:12-0400 BMI (Body Mass Index) 32.7 kg/m2 [facility] 12-23-2019 10:12-0400 Body weight 94.71 kg [facility] 12-23-2019 10:12-0400 BP Diastolic 73 mm[Hg] [facility] 12-23-2019 10:12-0400 BP Systolic 136 mm[Hg] [facility] 12-23-2019 10:12-0400 Pulse (Heart Rate) 62 /min [facility] 12-23-2019 10:120400 Pulse Oximetry 95 % [facility] 12-23-2019 10:120400 Respiratory Rate 16 /min [facility] 11-27-2019 11:10-0400 Body height 163.83 cm Muna Townsend PAPER [employer]ER [facility], [facility].; [place] [facility], [employer]. 11-27-2019 11:10-0400 Body mass index (BMI) [Ratio] 36.5 kg/m2 [facility] [place] [facility], [employer]. 11-27-2019 11:10-0400 Body surface area Derived from formula 2.03 m2 [facility], [facility].; [facility], [employer]. 11-27-2019 11:10-0400 Body weight 97.98 kg [facility], [employer]. 11-27-2019 11:10-0400 Diastolic blood pressure 82 mm[Hg] Adeline Stuckey [facility] [place] [facility], [employer]. 11-27-2019 11:10-0400 Heart rate 69 /min [facility], [facility].; [place] [facility], [employer]. 11-27-2019 11:10-0400 Inhaled oxygen concentration 20 % [facility], [facility].; [employer], [employer]. 11-27-2019 11:10-0400 SaO2% (BldA) [Mass fraction] 93 % [facility], [facility].; [facility]. 11-27-2019 11:10-0400 Systolic blood pressure 160 mm[Hg] Muna Townsend ASHER [facility], [facility].; [facility] 11-04-2019 10:07-0400 BMI (Body Mass Index) 34.3 kg/m2 [facility] 11-04-2019 10:07-0400 Body weight 99.34 kg [facility] 11-04-2019 10:07-0400 BP Diastolic 83 mm[Hg] [facility] 11-04-2019 10:07-0400 BP Systolic 150 mm[Hg] [facility] 11-04-2019 10:07-0400 Pulse (Heart Rate) 68 /min [facility] 11-04-2019 10:07-0400 Pulse Oximetry 95 % [facility] 11-04-2019 10:07-0400 Respiratory Rate 16 /min [facility] 09-20-2019 08:49-0400 Body height 163.83 cm Umu Nye RN [facility], [facility].; [place] [email or web address]. 09-20-2019 08:49-0400 Body mass index (BMI) [Ratio] 38.19 kg/m2 Umu Nye RN [facility], [facility].; [facility], [facility]. 09-20-2019 08:49-0400 Body surface area Derived from formula 2.07 m2 Umu Nye RN [facility], [facility].; [facility]. 09-20-2019 08:49-0400 Body weight 102.51 kg Umu Nye RN [facility], [facility].; [place] [facility], [facility]. 09-20-2019 08:49-0400 Diastolic blood pressure 72 mm[Hg] Umu Nye RN [facility], [facility].; [facility], [facility]. 09-20-2019 08:49-0400 Heart rate 69 /min Umu Nye RN [facility], [facility].; [place] [facility], [facility]. 09-20-2019 08:49-0400 Systolic blood pressure 129 mm[Hg] Umu Nye RN [facility], [facility].; [facility] 09-09-2019 10:12-0400 BMI (Body Mass Index) 33.99 kg/m2 [facility] 09-09-2019 10:12-0400 Body weight 98.43 kg [facility] 09-09-2019 10:12-0400 BP Diastolic 84 mm[Hg] [facility] 09-09-2019 10:12-0400 BP Systolic 152 mm[Hg] [facility] 09-09-2019 10:12-0400 Pulse (Heart Rate) 72 /min [facility] 09-09-2019 10:12-0400 Pulse Oximetry 96 % [facility] 09-09-2019 10:12-0400 Respiratory Rate 16 /min [facility] 07-31-2019 09:20-0400 BMI (Body Mass Index) 34.44 kg/m2 [facility] 07-31-2019 09:20-0400 Body weight 99.75 kg [facility] 07-31-2019 09:20-0400 BP Diastolic 88 mm[Hg] [facility] 07-31-2019 09:20-0400 BP Systolic 169 mm[Hg] [facility] 07-31-2019 09:20-0400 Pulse (Heart Rate) 72 /min [facility] 07-31-2019 09:20-0400 Pulse Oximetry 94 % [facility] 07-31-2019 09:20-0400 Respiratory Rate 16 /min [facility] 06-06-2019 13:03-0400 Body height 163.83 cm Rosy Tavarez LPN [facility], [facility]. 06-06-2019 13:03-0400 Body mass index (BMI) [Ratio] 36.67 kg/m2 Rosy Tavarez LPN [facility], [facility]. 06-06-2019 13:03-0400 Body surface area Derived from formula 2.04 m2 Rosy Tavarez LPN [facility], [facility]. 06-06-2019 13:03-0400 Body temperature 98 [degF] Rosy Balllabach [email or web address].; [email or web address]. 06-06-2019 13:03-0400 Body weight 98.43 kg Rosy Balllabach [email or web address].; [facility]. 06-06-2019 13:03-0400 Diastolic blood pressure 77 mm[Hg] Rosy Allison Corby [email or web address].; [facility]. 06-06-2019 13:03-0400 Heart rate 81 /min Rosy Balllabach [email or web address].; [place] [facility]. 06-06-2019 13:03-0400 Inhaled oxygen concentration 20 % Rosy Allison Corby [email or web address].; [facility] 06-06-2019 13:03-0400 SaO2% (BldA) [Mass fraction] 97 % Rosy Allison Corby [email or web address].; [employer] 06-06-2019 13:03-0400 Systolic blood pressure 168 mm[Hg] [facility]ach [facility].; [facility]. 05-24-2019 10:08-0400 BMI (Body Mass Index) 34.24 kg/m2 [facility] 05-24-2019 10:08-0400 Body weight 99.16 kg [facility] 05-24-2019 10:08-0400 BP Diastolic 87 mm[Hg] [facility] 05-24-2019 10:08-0400 BP Systolic 139 mm[Hg] [facility] 05-24-2019 10:08-0400 Pulse (Heart Rate) 70 /min [facility] 05-24-2019 10:08-0400 Pulse Oximetry 93 % [facility] 05-24-2019 10:08-0400 Respiratory Rate 16 /min [facility] 03-27-2019 08:27-0500 Body height 163.83 cm Zack Olmos MD Work Phone: [employer] 03-27-2019 08:27-0500 Body mass index (BMI) [Ratio] 38.19 kg/m2 Zack Olmos MD Work Phone: [employer]. 03-27-2019 08:27-0500 Body surface area Derived from formula 2.07 m2 Zack Olmos MD Work Phone: [employer]. 03-27-2019 08:27-0500 Body weight 102.51 kg Zack Olmos MD Work Phone: [employer]. 03-27-2019 08:27-0500 Diastolic blood pressure 84 mm[Hg] Zack Olmos MD Work Phone: [employer]. 03-27-2019 08:27-0500 Heart rate 66 /min Zack Olmos MD Work Phone: [employer].; [employer]. 03-27-2019 08:27-0500 Systolic blood pressure 157 mm[Hg] Zack Olmos MD Work Phone: [employer] [employer]. 03-25-2019 10:21-0500 BP Diastolic 88 mm[Hg] [facility] 03-25-2019 10:21-0500 BP Systolic 178 mm[Hg] [facility] 03-25-2019 10:16-0500 Pulse (Heart Rate) 66 /min [facility] 03-25-2019 10:16-0500 Pulse Oximetry 94 % [facility] 03-25-2019 10:16-0500 Respiratory Rate 16 /min [facility] 02-28-2019 13:45-0500 BMI (Body Mass Index) 35.63 kg/m2 Lenin Fraserleatha [facility] 02-28-2019 13:45-0500 Body weight 103.19 kg Lenin James [facility] 02-28-2019 13:45-0500 BP Diastolic 82 mm[Hg] Lenin Ramirez [facility] 02-28-2019 13:45-0500 BP Systolic 153 mm[Hg] Lenin Ramirez [facility] 02-28-2019 13:45-0500 Height 170.2 cm Lenin Ramirez [facility] 02-28-2019 13:45-0500 Pulse (Heart Rate) 67 /min Lenin Ramirez [facility] 02-28-2019 13:45-0500 Pulse Oximetry 95 % Lenin Ramirez [facility] 01-28-2019 11:13-0500 BMI (Body Mass Index) 34.97 kg/m2 [facility] 01-28-2019 11:13-0500 Body weight 101.29 kg [facility] 01-28-2019 11:13-0500 BP Diastolic 85 mm[Hg] [facility] 01-28-2019 11:13-0500 BP Systolic 166 mm[Hg] [facility] 01-28-2019 11:13-0500 Pulse (Heart Rate) 62 /min [facility] 01-28-2019 11:13-0500 Pulse Oximetry 95 % [facility] 01-28-2019 11:13-0500 Respiratory Rate 16 /min [facility] 12-31-2018 10:05-0400 BMI (Body Mass Index) 34.54 kg/m2 [facility] 12-31-2018 10:05-0400 Body weight 100.02 kg [facility] 12-31-2018 10:05-0400 BP Diastolic 62 mm[Hg] [facility] 12-31-2018 10:05-0400 BP Systolic 150 mm[Hg] [facility] 12-31-2018 10:05-0400 Pulse (Heart Rate) 66 /min [facility] 12-31-2018 10:05-0400 Pulse Oximetry 94 % [facility] 12-31-2018 10:05-0400 Respiratory Rate 16 /min [facility] 11-30-2018 10:31-0400 BMI (Body Mass Index) 34.5 kg/m2 [facility] 11-30-2018 10:31-0400 Body weight 99.93 kg [facility] 11-30-2018 10:31-0400 BP Diastolic 88 mm[Hg] [facility] 11-30-2018 10:31-0400 BP Systolic 168 mm[Hg] [facility] 11-30-2018 10:31-0400 Pulse (Heart Rate) 62 /min [facility] 11-30-2018 10:31-0400 Pulse Oximetry 95 % [facility] 11-30-2018 10:31-0400 Respiratory Rate 16 /min [facility] 11-09-2018 10:09-0400 BMI (Body Mass Index) 34.43 kg/m2 [facility] 11-09-2018 10:09-0400 Body weight 99.7 kg [facility] 11-09-2018 10:09-0400 BP Diastolic 92 mm[Hg] [facility] 11-09-2018 10:09-0400 BP Systolic 155 mm[Hg] [facility] 11-09-2018 10:09-0400 Pulse (Heart Rate) 70 /min [facility] 10-12-2018 10:14-0400 BMI (Body Mass Index) 34.28 kg/m2 [facility] 10-12-2018 10:14-0400 Body weight 99.29 kg [facility] 10-12-2018 10:14-0400 BP Diastolic 92 mm[Hg] [facility] 10-12-2018 10:14-0400 BP Systolic 153 mm[Hg] [facility] 10-12-2018 10:14-0400 Pulse (Heart Rate) 70 /min [facility] 10-12-2018 10:14-0400 Pulse Oximetry 93 % [facility] 10-12-2018 10:14-0400 Respiratory Rate 16 /min [facility] 09-25-2018 09:23-0400 Body height 163.83 cm Zack Olmos MD Work Phone: [email or web address], [facility]. 09-25-2018 09:23-0400 Body mass index (BMI) [Ratio] 36.84 kg/m2 Zack Olmos MD Work Phone: [employer] 09-25-2018 09:23-0400 Body surface area Derived from formula 2.04 m2 Zack Olmos MD Work Phone: [employer] 09-25-2018 09:23-0400 Body weight 98.88 kg Zack Olmos MD Work Phone: [employer]. 09-25-2018 09:23-0400 Diastolic blood pressure 80 mm[Hg] Zack Olmos MD Work Phone: [employer] 09-25-2018 09:23-0400 Heart rate 76 /min Zack Olmos MD Work Phone: [employer] 09-25-2018 09:23-0400 Systolic blood pressure 132 mm[Hg] Zack Olmos MD Work Phone: [employer] 09-21-2018 11:05-0400 BMI (Body Mass Index) 34.13 kg/m2 [facility] 09-21-2018 11:05-0400 Body weight 98.84 kg [facility] 09-21-2018 11:05-0400 BP Diastolic 77 mm[Hg] [facility] 09-21-2018 11:05-0400 BP Systolic 146 mm[Hg] [facility] 09-21-2018 11:05-0400 Pulse (Heart Rate) 66 /min [facility] 09-21-2018 11:05-0400 Pulse Oximetry 95 % [facility] 09-21-2018 11:05-0400 Respiratory Rate 16 /min [facility] 09-05-2018 11:20-0400 BP Diastolic 72 mm[Hg] [place] [facility] 09-05-2018 11:20-0400 BP Systolic 142 mm[Hg] [place] [facility] 09-05-2018 11:20-0400 Pulse (Heart Rate) 54 /min [place] [facility] 09-05-2018 10:55-0400 BMI (Body Mass Index) 33.39 kg/m2 [place] [facility] 09-05-2018 10:55-0400 Body weight 96.71 kg [place] [facility] 09-05-2018 10:55-0400 Height 170.2 cm [facility] 09-05-2018 10:55-0400 Pulse Oximetry 96 % [place] [facility] 08-31-2018 11:05-0400 BMI (Body Mass Index) 33.17 kg/m2 [facility] 08-31-2018 11:05-0400 BP Diastolic 88 mm[Hg] [facility] 08-31-2018 11:05-0400 BP Systolic 155 mm[Hg] [facility] 08-31-2018 11:05-0400 Pulse (Heart Rate) 50 /min [facility] 08-31-2018 11:05-0400 Pulse Oximetry 95 % [facility] 08-31-2018 11:05-0400 Respiratory Rate 16 /min [facility] 08-31-2018 11:05-0400 Weight 96.07 kg [facility] 08-10-2018 11:19-0400 BMI (Body Mass Index) 34 kg/m2 [facility] 08-10-2018 11:19-0400 BP Diastolic 78 mm[Hg] [facility] 08-10-2018 11:19-0400 BP Systolic 148 mm[Hg] [facility] 08-10-2018 11:19-0400 Pulse (Heart Rate) 72 /min [facility] 08-10-2018 11:19-0400 Pulse Oximetry 95 % [facility] 08-10-2018 11:19-0400 Respiratory Rate 16 /min [facility] 08-10-2018 11:19-0400 Weight 98.48 kg [facility] 08-03-2018 12:17-0400 BMI (Body Mass Index) 34.08 kg/m2 [facility] 08-03-2018 12:17-0400 BP Diastolic 84 mm[Hg] [facility] 08-03-2018 12:17-0400 BP Systolic 141 mm[Hg] [facility] 08-03-2018 12:17-0400 Pulse (Heart Rate) 66 /min [facility] 08-03-2018 12:17-0400 Pulse Oximetry 96 % [facility] 08-03-2018 12:17-0400 Respiratory Rate 16 /min [facility] 08-03-2018 12:17-0400 Weight 98.7 kg [facility] 07-26-2018 08:40-0400 BP Diastolic 72 mm[Hg] [facility] 07-26-2018 08:40-0400 BP Systolic 163 mm[Hg] [facility] 07-26-2018 08:40-0400 Pulse (Heart Rate) 76 /min [facility] 07-26-2018 08:03-0400 BMI (Body Mass Index) 34.57 kg/m2 [facility] 07-26-2018 08:03-0400 Height 170.2 cm [facility] 07-26-2018 08:03-0400 Pulse Oximetry 94 % [facility] 07-26-2018 08:03-0400 Weight 100.11 kg [facility] 07-20-2018 09:41-0400 BP Diastolic 84 mm[Hg] Lenin Ramirez [facility] 07-20-2018 09:41-0400 BP Systolic 144 mm[Hg] Lenin Ramirez [facility] 07-20-2018 09:41-0400 Pulse (Heart Rate) 92 /min Lenin Ramirez [facility] 05-30-2018 10:01-0400 Body height 163.83 cm Muna Townsend [employer]ER [employer] [facility] [employer] [facility] 05-30-2018 10:01-0400 Body mass index (BMI) [Ratio] 37.35 kg/m2 Muna Townsend [employer] [facility] [employer] [facility] 05-30-2018 10:01-0400 Body surface area Derived from formula 2.05 m2 Muna Townsend LPN [facility].; [employer] 05-30-2018 10:01-0400 Body weight 100.25 kg Muna Townsend P[employer]ER [employer]ER [place] [facility] [employer]. 05-30-2018 10:01-0400 Diastolic blood pressure 65 mm[Hg] Muna Townsend P[employer]ER [employer]ER [facility] [employer]. 05-30-2018 10:01-0400 Heart rate 38 /min Muna Townsend P[employer]ER R[employer]ER [facility] [employer]. 05-30-2018 10:01-0400 Inhaled oxygen concentration 20 % Muna Townsend [facility] [employer], [employer]. 05-30-2018 10:01-0400 SaO2% (BldA) [Mass fraction] 97 % [facility]una [facility]send [facility] [employer], [employer]. 05-30-2018 10:01-0400 Systolic blood pressure 132 mm[Hg] Muna Townsend [facility] [employer], [employer]. 05-17-2018 12:01-0500 BMI (Body Mass Index) 34.63 kg/m2 Lenin Ramirez [facility] 05-17-2018 12:01-0500 BP Diastolic 59 mm[Hg] Lenin Fraserleatha [facility] 05-17-2018 12:01-0500 BP Systolic 122 mm[Hg] Lenin Evelioleatha [facility] 05-17-2018 12:01-0500 Height 170.2 cm Lenin Davleatha [facility] 05-17-2018 12:01-0500 Pulse (Heart Rate) 39 /min Lenin Evelioleatha [facility] 05-17-2018 12:01-0500 Pulse Oximetry 92 % Lenin Davleatha [facility] 05-17-2018 12:01-0500 Weight 100.29 kg Lenin Davleatha [facility] 05-03-2018 12:15-0500 BMI (Body Mass Index) 36.77 kg/m2 Lenin Fraserleatha [facility] 05-03-2018 12:15-0500 BP Diastolic 85 mm[Hg] Lenin Ramirez [facility] 05-03-2018 12:15-0500 BP Systolic 147 mm[Hg] Lenin Ramirez [facility] 05-03-2018 12:15-0500 Height 170.2 cm Lenin Ramirez [facility] 05-03-2018 12:15-0500 Pulse (Heart Rate) 80 /min Lenin Ramirez [facility] 05-03-2018 12:15-0500 Pulse Oximetry 91 % Lenin Ramirez [facility] 05-03-2018 12:15-0500 Weight 106.5 kg Lenin Ramirez [facility] 04-18-2018 09:15-0500 Body height 163.83 cm Rachel Guera Goodwin LPN [facility], [facility].; [employer], [employer]. 04-18-2018 09:15-0500 Body mass index (BMI) [Ratio] 39.88 kg/m2 Rachel Guera Goodwin [employer] [place] [facility] [employer], [facility]. 04-18-2018 09:15-0500 Body surface area Derived from formula 2.11 m2 Rachel Guera Goodwin P[employer]ER [employer]ER [place] [facility], [facility].; [employer], [employer]. 04-18-2018 09:15-0500 Body weight 107.05 kg Rachel Guera Goodwin [facility], [facility].; [employer], [employer]. 04-18-2018 09:15-0500 Diastolic blood pressure 73 mm[Hg] Rachel Goodwin P[employer]ER [employer]ER [place] [facility].; [facility], [facility]. 04-18-2018 09:15-0500 Heart rate 70 /min Rachel Guera Goodwin LPN [facility], [facility].; [employer], [employer]. 04-18-2018 09:15-0500 Inhaled oxygen concentration 20 % Rachel Guera Osmanbarichard [facility].; [employer], [employer]. 04-18-2018 09:15-0500 SaO2% (BldA) [Mass fraction] 93 % Rachel Guera Samersjosephine PAPER RULER [place] [facility].; [employer]. 04-18-2018 09:15-0500 Systolic blood pressure 150 mm[Hg] Rachel Goodwin LPN [employer]. 03-16-2018 10:31-0500 Body height 163.83 cm Umu Nye RN [employer]. 03-16-2018 10:31-0500 Body mass index (BMI) [Ratio] 39.21 kg/m2 Umu Nye RN [employer]. 03-16-2018 10:31-0500 Body surface area Derived from formula 2.1 m2 Umu Nye RN [employer]. 03-16-2018 10:31-0500 Body temperature 98.6 [degF] Umu Nye RN [employer]. 03-16-2018 10:31-0500 Body weight 105.24 kg Umu Nye RN [employer].; [employer]. 03-16-2018 10:31-0500 Diastolic blood pressure 71 mm[Hg] Umu Nye RN [employer]. 03-16-2018 10:31-0500 Heart rate 76 /min Umu Nye RN [employer]. 03-16-2018 10:31-0500 Inhaled oxygen concentration 20 % Umu Nye RN [employer]. 03-16-2018 10:31-0500 SaO2% (BldA) [Mass fraction] 94 % Umu Nye RN [employer]. 03-16-2018 10:31-0500 Systolic blood pressure 126 mm[Hg] Umu Nye RN [employer]. 02-21-2018 08:02-0500 Body height 163.83 cm Sandra King LPN [employer].; [employer]. 02-21-2018 08:02-0500 Body mass index (BMI) [Ratio] 39.04 kg/m2 Sandra Wealonso [place] [employer], [employer]. 02-21-2018 08:02-0500 Body surface area Derived from formula 2.09 m2 Sandra Avialonso [place] [employer], [employer]. 02-21-2018 08:02-0500 Body temperature 97.9 [degF] Sandra Fernando PAPER RULER [place] [employer] [facility].; [employer]. 02-21-2018 08:02-0500 Body weight 104.78 kg Sandra Wealonso PAPER RULER [employer], [employer].; [employer]. 02-21-2018 08:02-0500 Diastolic blood pressure 81 mm[Hg] Sandra [facility] [employer]. 02-21-2018 08:02-0500 Heart rate 71 /min Sandra Avialonso PAPER RULER [employer], [employer]. 02-21-2018 08:02-0500 Inhaled oxygen concentration 20 % Sandra Avialonso [facility] [employer], [employer]. 02-21-2018 08:02-0500 SaO2% (BldA) [Mass fraction] 98 % Sandra Avialonso PAPER RULER [employer], [employer]. 02-21-2018 08:02-0500 Systolic blood pressure 160 mm[Hg] Sandra King LPN [employer], [employer]. 02-06-2018 08:00-0500 Body height 163.83 cm Rachel Goodwin PAPER RULER [employer], [employer]. 02-06-2018 08:00-0500 Body mass index (BMI) [Ratio] 38.19 kg/m2 Rachel Goodwin PAPER RULER [employer], [employer]. 02-06-2018 08:00-0500 Body surface area Derived from formula 2.07 m2 Rachel Goodwin [facility], [facility].; [employer], [facility]. 02-06-2018 08:00-0500 Body temperature 99.5 [degF] Rachel Goodwin [facility].; [employer], [employer]. 02-06-2018 08:00-0500 Body weight 102.51 kg Rachel Goodwin [facility], [facility].; [employer], [facility]. 02-06-2018 08:00-0500 Diastolic blood pressure 82 mm[Hg] Rachel Goodwin [facility] [employer], [employer]. 02-06-2018 08:00-0500 Heart rate 85 /min Rachel Goodwin [facility] [employer], [employer]. 02-06-2018 08:00-0500 Inhaled oxygen concentration 20 % Rachelanahy Goodwin [facility], [facility].; [employer], [employer]. 02-06-2018 08:00-0500 SaO2% (BldA) [Mass fraction] 95 % Rachelanahy Goodwin [facility], [facility].; [employer], [employer]. 02-06-2018 08:00-0500 Systolic blood pressure 146 mm[Hg] Rachel Goodwin [facility] [employer], [employer]. 12-26-2017 08:42-0400 Body height 163.83 cm Muna Townsend [facility], [facility].; [employer], [employer]. 12-26-2017 08:42-0400 Body mass index (BMI) [Ratio] 39.38 kg/m2 Muna Townsend [facility], [employer].; [employer], [employer]. 12-26-2017 08:42-0400 Body surface area Derived from formula 2.1 m2 Muna Townsend [facility], [facility].; [employer]. 12-26-2017 08:42-0400 Body temperature 97.5 [degF] Muna Townsend PAPER RULER [facility] 12-26-2017 08:42-0400 Body weight 105.69 kg Muna Townsend ASHER [facility] 12-26-2017 08:42-0400 Diastolic blood pressure 80 mm[Hg] Muna Townsend ASHER [facility] [employer] 12-26-2017 08:42-0400 Heart rate 83 /min AdelineMaren Townsend ASHER [facility] [employer] 12-26-2017 08:42-0400 Inhaled oxygen concentration 20 % AdelineMaren Townsend ASHER [facility] 12-26-2017 08:42-0400 SaO2% (BldA) [Mass fraction] 96 % AdelineMaren Townsend ASHER [facility] [employer] 12-26-2017 08:42-0400 Systolic blood pressure 145 mm[Hg] Muna Townsend ASHER [facility] [employer] 11-07-2017 09:17-0400 Body height 163.83 cm Muna Townsend ASHER [facility] [employer] 11-07-2017 09:17-0400 Body mass index (BMI) [Ratio] 38.7 kg/m2 Adeline Cary ASHER [facility] [employer], [employer] 11-07-2017 09:17-0400 Body surface area Derived from formula 2.08 m2 Adeline [facility] [facility] ASHER [place] [facility].; [employer] 11-07-2017 09:17-0400 Body weight 103.87 kg Adeline [facility] [employer] 11-07-2017 09:17-0400 Diastolic blood pressure 73 mm[Hg] AdelineMaren Barrettey ASHER [place] [facility].; [employer] 11-07-2017 09:17-0400 Heart rate 82 /min Muna Townsend ASHER [employer] 11-07-2017 09:17-0400 Systolic blood pressure 144 mm[Hg] Muna Townsend PAPER RULER [employer] 10-09-2017 08:22-0400 Body height 163.83 cm Johnny Corcoran [facility] [employer] 10-09-2017 08:22-0400 Body mass index (BMI) [Ratio] 39.21 kg/m2 Johnny Corcoran [facility] [employer] 10-09-2017 08:22-0400 Body surface area Derived from formula 2.1 m2 Johnny Corcoran [facility] [employer] 10-09-2017 08:22-0400 Body weight 105.24 kg Johnny Corcoran [facility] [employer] 10-09-2017 08:22-0400 Diastolic blood pressure 91 mm[Hg] Johnny Corcoran PAPER RULER [employer] 10-09-2017 08:22-0400 Heart rate 70 /min Johnny Corcoran [facility] [employer] 10-09-2017 08:22-0400 Systolic blood pressure 151 mm[Hg] Johnny Corcoran LPN [employer] 09-18-2017 09:50-0400 Body height 163.83 cm Zack Olmos MD Work Phone: [employer] 09-18-2017 09:50-0400 Body mass index (BMI) [Ratio] 38.7 kg/m2 Zack Olmos MD Work Phone: [employer] 09-18-2017 09:50-0400 Body surface area Derived from formula 2.08 m2 Zack Olmos MD Work Phone: [employer] 09-18-2017 09:50-0400 Body weight 103.87 kg Zack Olmos MD Work Phone: [employer] 09-18-2017 09:50-0400 Diastolic blood pressure 70 mm[Hg] Zack Olmos MD Work Phone: [employer] 09-18-2017 09:50-0400 Heart rate 67 /min Zack Olmos MD Work Phone: [employer] 09-18-2017 09:50-0400 Systolic blood pressure 126 mm[Hg] Zack Olmos MD Work Phone: [employer] 07-11-2017 09:27-0400 Body height 163.83 cm Laura Boswell LPN [employer] 07-11-2017 09:27-0400 Body mass index (BMI) [Ratio] 39.04 kg/m2 Laura Boswell LPN [employer] 07-11-2017 09:27-0400 Body surface area Derived from formula 2.09 m2 Laura Boswell LPN [employer] 07-11-2017 09:27-0400 Body temperature 97.9 [degF] Laura Boswell LPN [employer] 07-11-2017 09:27-0400 Body weight 104.78 kg Laura Boswell LPN [employer] 07-11-2017 09:27-0400 Diastolic blood pressure 72 mm[Hg] Laura Boswell LPN [employer] 07-11-2017 09:27-0400 Heart rate 74 /min Laura Boswell LPN [employer] 07-11-2017 09:27-0400 Systolic blood pressure 154 mm[Hg] Laura Boswell LPN [employer] 06-16-2017 10:15-0400 Body temperature 97.9 [degF] Laura Ilda Boswell PAPER RULER [employer] 06-16-2017 10:15-0400 Body weight 106.4 kg Laura Ilda Boswell LPN [employer] 06-16-2017 10:15-0400 Diastolic blood pressure 70 mm[Hg] [facility]well [facility] [employer] 06-16-2017 10:15-0400 Heart rate 91 /min Laura Ilda Boswell [facility] [employer] 06-16-2017 10:15-0400 Systolic blood pressure 143 mm[Hg] Laura Boswell [facility] [employer] 05-04-2017 15:40-0500 BMI (Body Mass Index) 38.22 kg/m2 Lenin Ramirez [facility] 05-04-2017 15:40-0500 BP Diastolic 80 mm[Hg] Lenin Ramirez [facility] 05-04-2017 15:40-0500 BP Systolic 127 mm[Hg] Lenin Ramirez [facility] 05-04-2017 15:40-0500 Height 170.2 cm Lenin Ramirez [facility] 05-04-2017 15:40-0500 Pulse (Heart Rate) 80 /min Lenin Ramirez [facility] 05-04-2017 15:40-0500 Weight 110.68 kg Lenin Ramirez [facility] 03-21-2017 10:25-0500 Body height 163.83 cm Zack Olmos MD Work Phone: [employer] 03-21-2017 10:25-0500 Body mass index (BMI) [Ratio] 39.88 kg/m2 Zack Olmos MD Work Phone: [employer] 03-21-2017 10:25-0500 Body surface area Derived from formula 2.11 m2 Zack Olmos MD Work Phone: [employer] 03-21-2017 10:25-0500 Body weight 107.05 kg Zack Olmos MD Work Phone: [employer] 03-21-2017 10:25-0500 Diastolic blood pressure 70 mm[Hg] Zack Olmos MD Work Phone: [employer] 03-21-2017 10:25-0500 Heart rate 91 /min Zack Olmos MD Work Phone: [employer] 03-21-2017 10:25-0500 Systolic blood pressure 132 mm[Hg] Zack Olmos MD Work Phone: [employer] 10-05-2016 09:46-0400 Body height 163.83 cm Zack Olmos MD Work Phone: [employer] 10-05-2016 09:46-0400 Body mass index (BMI) [Ratio] 39.88 kg/m2 Zack Olmos MD Work Phone: [employer] 10-05-2016 09:46-0400 Body surface area Derived from formula 2.11 m2 Zack Olmos MD Work Phone: [employer] 10-05-2016 09:46-0400 Body weight 107.05 kg Zack Olmos MD Work Phone: [employer] 10-05-2016 09:46-0400 Diastolic blood pressure 82 mm[Hg] Zack Olmos MD Work Phone: [employer] 10-05-2016 09:46-0400 Heart rate 68 /min Zack Olmos MD Work Phone: [employer] 10-05-2016 09:46-0400 Systolic blood pressure 138 mm[Hg] Zack Olmos MD Work Phone: [employer] 09-16-2016 11:33-0400 Body height 163.83 cm [facility]y [facility], [employer].; [employer] 09-16-2016 11:33-0400 Body mass index (BMI) [Ratio] 40.39 kg/m2 Rosy Allison CorbyGe[facility] CenterTravel[facility] Inc.; [employer] 09-16-2016 11:33-0400 Body surface area Derived from formula 2.12 m2 Rosy Allison Corby LPN [employer] 09-16-2016 11:33-0400 Body weight 108.41 kg Rosy Allison Corby LPN [employer] 09-16-2016 11:33-0400 Diastolic blood pressure 84 mm[Hg] Rosy Tavarez [facility] [employer] 09-16-2016 11:33-0400 Heart rate 73 /min Rosy Allison Corby [facility] [employer] 09-16-2016 11:33-0400 Systolic blood pressure 145 mm[Hg] Rosy Tavarez [facility] [employer] 04-06-2016 10:03-0500 Body height 163.83 cm Zack Olmos MD Work Phone: [employer] 04-06-2016 10:03-0500 Body mass index (BMI) [Ratio] 41.4 kg/m2 Zack Olmos MD Work Phone: [employer] 04-06-2016 10:03-0500 Body surface area Derived from formula 2.14 m2 Zack Olmos MD Work Phone: [employer] 04-06-2016 10:03-0500 Body weight 111.13 kg Zack Olmos MD Work Phone: [employer] 04-06-2016 10:03-0500 Diastolic blood pressure 72 mm[Hg] Zack Olmos MD Work Phone: [employer] 04-06-2016 10:03-0500 Heart rate 91 /min Zack Olmos MD Work Phone: [employer] 04-06-2016 10:03-0500 Systolic blood pressure 140 mm[Hg] Zack Olmos MD Work Phone: [employer] 12-21-2015 09:23-0400 Body weight 115.21 kg Zack Olmos MD Work Phone: [employer] 12-21-2015 09:23-0400 Diastolic blood pressure 80 mm[Hg] Zack Olmos MD Work Phone: [employer] 12-21-2015 09:23-0400 Heart rate 76 /min Zack Olmos MD Work Phone: [employer] 12-21-2015 09:23-0400 Systolic blood pressure 142 mm[Hg] Zack Olmos MD Work Phone: [employer] 10-14-2015 10:57-0400 Body height 163.83 cm Rosy Tavarez [facility] [employer] 10-14-2015 10:57-0400 Body mass index (BMI) [Ratio] 41.91 kg/m2 Rosy Tavarez LPN [employer] 10-14-2015 10:57-0400 Body surface area Derived from formula 2.16 m2 Rosy Tavarez LPN [employer] [employer] 10-14-2015 10:57-0400 Body weight 112.49 kg Rosy Allison Corby STER[facility], [employer].; [employer] 10-14-2015 10:57-0400 Diastolic blood pressure 74 mm[Hg] Rosy Balldory STER[facility], [employer].; [employer] 10-14-2015 10:57-0400 Heart rate 75 /min Rosy Allison Corby PAPER RULER [facility], Inc.; [employer] 10-14-2015 10:57-0400 Systolic blood pressure 131 mm[Hg] Rosy Allison Corby LPN [employer], [employer] 10-06-2015 10:11-0400 Body height 163.83 cm Muna Engel [place] [facility], [employer].; [employer] 10-06-2015 10:11-0400 Body mass index (BMI) [Ratio] 41.57 kg/m2 Muna Engel [place] ASHER [facility], Inc.; [employer] 10-06-2015 10:11-0400 Body surface area Derived from formula 2.15 m2 Muna Engel [place] [facility], Inc.; [employer] 10-06-2015 10:11-0400 Body weight 111.59 kg Muna Townsend ASHER [facility], Inc.; [employer] 10-06-2015 10:11-0400 Diastolic blood pressure 75 mm[Hg] Muna Engel [place] ASHER [facility], Inc.; [employer], [employer] 10-06-2015 10:11-0400 Heart rate 71 /min Muna Engel [facility] ASHER [employer], [employer].; [employer] 10-06-2015 10:11-0400 Systolic blood pressure 141 mm[Hg] Muna Engel [facility] ASHER [employer], [employer] 04-07-2015 10:00-0500 Body height 163.83 cm Adeline [place] STERLING [employer], [employer] 04-07-2015 10:00-0500 Body mass index (BMI) [Ratio] 41.24 kg/m2 Adeline [facility] [employer] 04-07-2015 10:00-0500 Body surface area Derived from formula 2.14 m2 [facility], [employer] 04-07-2015 10:00-0500 Body weight 110.68 kg Muna Townsend [facility] [employer] 04-07-2015 10:00-0500 Diastolic blood pressure 77 mm[Hg] [facility], Inc.; [employer] 04-07-2015 10:00-0500 Heart rate 85 /min [facility], Inc.; [employer] 04-07-2015 10:00-0500 Systolic blood pressure 138 mm[Hg] Muna Townsend [facility] Inc.; [employer] 01-06-2015 09:37-0400 Body height 163.83 cm Zack Olmos MD Work Phone: [employer] 01-06-2015 09:37-0400 Body mass index (BMI) [Ratio] 40.9 kg/m2 Zack Olmos MD Work Phone: [employer].; [employer] 01-06-2015 09:37-0400 Body surface area Derived from formula 2.13 m2 Zack Olmos MD Work Phone: [employer] 01-06-2015 09:37-0400 Body temperature 97.7 [degF] Zack Olmos MD Work Phone: [employer]. 01-06-2015 09:37-0400 Body weight 109.77 kg Zack Olmos MD Work Phone: [employer]. 01-06-2015 09:37-0400 Diastolic blood pressure 70 mm[Hg] Zack Olmos MD Work Phone: [employer].; [employer]. 01-06-2015 09:37-0400 Heart rate 69 /min Zack Olmos MD Work Phone: [employer].; [employer]. 01-06-2015 09:37-0400 Inhaled oxygen concentration 20 % Zack Olmos MD Work Phone: [employer].; [employer]. 01-06-2015 09:37-0400 SaO2% (BldA) [Mass fraction] 97 % Zack Olmos MD Work Phone: [employer].; [employer]. 01-06-2015 09:37-0400 Systolic blood pressure 132 mm[Hg] Zack Olmos MD Work Phone: [employer].; [employer]. 12-23-2014 08:19-0400 Body temperature 101.6 [degF] Umu Nye RN [employer].; [employer]. 12-23-2014 08:19-0400 Body weight 115.67 kg Umu Nye RN [employer].; [employer]. 12-23-2014 08:19-0400 Diastolic blood pressure 86 mm[Hg] Umu Nye RN [employer].; [employer]. 12-23-2014 08:19-0400 Heart rate 115 /min Umu Nye RN [employer].; [employer]. 12-23-2014 08:19-0400 Inhaled oxygen concentration 20 % Umu Nye RN [employer].; [employer]. 12-23-2014 08:19-0400 SaO2% (BldA) [Mass fraction] 89 % Umu Nye RN [employer].; [facility], Inc[facility] 12-23-2014 08:19-0400 Systolic blood pressure 184 mm[Hg] Umu Nye RN [facility].; [employer], [employer] 09-26-2014 [id number]:[id number] Body height 163.83 cm AdelineMaren Townsend [facility], Inc.; [employer] 09-26-2014 10:28-0400 Body mass index (BMI) [Ratio] 41.91 kg/m2 [facility] [place] [facility], Inc.; [employer] 09-26-2014 10:28-0400 Body surface area Derived from formula 2.16 m2 [facility] [place], Inc.; [employer] 09-26-2014 [id number]:[id number] Body weight 112.49 kg [facility] [place] PAPER RULER Martines [facility], Inc.; [employer], [employer] 09-26-2014 10:28-0400 Diastolic blood pressure 79 mm[Hg] AdelineMaren Townsend PAPER RULER Martines [facility], Inc.; [employer], [employer] 09-26-2014 10:28-0400 Heart rate 65 /min [facility], Inc.; [employer], [employer] 09-26-2014 10:28-0400 Systolic blood pressure 141 mm[Hg] Adeline [place] PAPER RULER Martines [facility], Inc.; [employer], [employer] 08-01-2014 09:020400 Body height 163.83 cm [facility] [place] PAPER RULER Martines [facility], Inc.; [employer] 08-01-2014 09:020400 Body mass index (BMI) [Ratio] 41.07 kg/m2 [facility] [place] [facility], Inc.; [employer], [employer] 08-01-2014 09:02-0400 Body surface area Derived from formula 2.14 m2 [facility] [place] PAPER RULER Martines [facility], Inc.; [employer] 08-01-2014 09:020400 Body weight 110.22 kg Muna Townsend ASHER [facility], Inc.; [employer], [employer] 08-01-2014 09:02-0400 Diastolic blood pressure 78 mm[Hg] Muna Townsend [facility] Inc.; [employer], [employer] 08-01-2014 09:02-0400 Heart rate 78 /min Muna Townsend [facility] Inc.; [employer], [employer] 08-01-2014 09:02-0400 Systolic blood pressure 135 mm[Hg] Muna Townsend [facility], Inc.; [employer], [employer] 06-20-2014 09:50-0400 Body height 163.83 cm Marisela Chavis LPN [facility], Inc.; [employer], [employer] 06-20-2014 09:50-0400 Body mass index (BMI) [Ratio] 41.24 kg/m2 Marisela Chavis LPN [facility], Inc.; [employer] 06-20-2014 09:50-0400 Body surface area Derived from formula 2.14 m2 Marisela Chavis LPN [employer] 06-20-2014 09:50-0400 Body temperature 97.9 [degF] Marisela Chavis LPN [employer], [employer].; [employer] 06-20-2014 09:50-0400 Body weight 110.68 kg Marisela Chavis LPN [employer], [employer].; [employer] 06-20-2014 09:50-0400 Diastolic blood pressure 76 mm[Hg] Marisela Chavis LPN [employer], [employer].; [employer] 06-20-2014 09:50-0400 Heart rate 73 /min Marisela Chavis LPN [employer], [employer].; [employer] 06-20-2014 09:50-0400 Systolic blood pressure 143 mm[Hg] Marisela Chavis LPN [employer], [employer].; [employer] 03-24-2014 08:07-0500 Body height 163.83 cm Muna Townsend PAPER RULER Martines [facility], Inc.; [employer], [employer] 03-24-2014 08:07-0500 Body mass index (BMI) [Ratio] 39.04 kg/m2 Muna Townsend [facility], Inc.; [employer], [employer] 03-24-2014 08:07-0500 Body surface area Derived from formula 2.09 m2 Muna Townsend [facility], Inc.; [employer], [employer] 03-24-2014 08:07-0500 Body weight 104.78 kg Muna Townsend [facility] Inc.; [employer] 03-24-2014 08:07-0500 Diastolic blood pressure 78 mm[Hg] Muna Townsend [facility], Inc.; [employer], [employer] 03-24-2014 08:07-0500 Heart rate 81 /min Adeline [facility], Inc.; [employer], [employer] 03-24-2014 08:07-0500 Systolic blood pressure 147 mm[Hg] Muna Townsend [facility] Inc.; [employer] 01-22-2014 11:07-0500 Body height 163.83 cm Muna Townsend [facility], Inc.; [employer], [employer] 01-22-2014 11:07-0500 Body mass index (BMI) [Ratio] 37.18 kg/m2 Muna Townsend [facility] Inc.; [employer] 01-22-2014 11:07-0500 Body surface area Derived from formula 2.05 m2 Muna Townsend PAPER RULER [employer], [employer].; [employer] 01-22-2014 11:07-0500 Body temperature 97.4 [degF] Muna Townsend [facility] Inc.; [employer] 01-22-2014 11:07-0500 Body weight 99.79 kg Muna Townsend PAPER RULER [employer], [employer].; [employer], [employer] 01-22-2014 11:07-0500 Diastolic blood pressure 69 mm[Hg] Muna Townsend [facility], Inc.; [employer], [employer] 01-22-2014 11:07-0500 Heart rate 106 /min Muna Townsend [facility], Inc.; [employer], [employer] 01-22-2014 11:07-0500 Systolic blood pressure 112 mm[Hg] Muna Townsend [facility] Inc.; [employer], [employer] 01-15-2014 07:57-0500 Body height 163.83 cm Muna Townsend [facility], Inc.; [employer], [employer] 01-15-2014 07:57-0500 Body mass index (BMI) [Ratio] 37.18 kg/m2 Muna Townsend [facility], Inc.; [employer], [employer] 01-15-2014 07:57-0500 Body surface area Derived from formula 2.05 m2 Adeline Cary [facility], Inc.; [employer], [employer] 01-15-2014 07:57-0500 Body temperature 99.3 [degF] Muna Townsend [facility] Inc.; [employer], [employer] 01-15-2014 07:57-0500 Body weight 99.79 kg Muna Townsend [facility], Inc.; [employer], [employer] 01-15-2014 07:57-0500 Diastolic blood pressure 69 mm[Hg] Muna Townsend [facility], Inc.; [employer], [employer]. 01-15-2014 07:57-0500 Heart rate 106 /min AdelineMaren Townsend [facility], Inc.; [employer], [employer] 01-15-2014 07:57-0500 Systolic blood pressure 132 mm[Hg] Muna Townsend [facility] Inc.; [employer], [employer] 01-13-2014 11:25-0500 Body height 163.83 cm Pilar Garcia [facility] Inc.; [employer], [employer] 01-13-2014 11:25-0500 Body mass index (BMI) [Ratio] 37.18 kg/m2 Pilar Garcia PAPER RULER [facility], Inc.; [employer], [employer] 01-13-2014 11:25-0500 Body surface area Derived from formula 2.05 m2 iPlar Garcia PAPER RULER [facility], Inc.; [employer], [employer] 01-13-2014 11:25-0500 Body weight 99.79 kg Pilar Garcia [facility] Inc.; [employer], [employer] 01-13-2014 11:25-0500 Diastolic blood pressure 79 mm[Hg] Pilarclemente Garcia [facility], Inc.; [employer], [employer] 01-13-2014 11:25-0500 Heart rate 109 /min Pilarclemente Garcia LPN [employer], [employer].; [employer], [employer] 01-13-2014 11:25-0500 Systolic blood pressure 131 mm[Hg] Pilar Garcia LPN [employer], [employer].; [employer], [employer] 07-30-2013 10:06-0400 Body height 163.83 cm Muna Townsend PAPER RULER [employer], [employer].; [employer] 07-30-2013 10:06-0400 Body mass index (BMI) [Ratio] 38.53 kg/m2 Muna Townsend PAPER RULER [facility], Inc.; [employer], [employer] 07-30-2013 10:06-0400 Body surface area Derived from formula 2.08 m2 Muna Townsend ASHER [employer], [employer].; [employer], [employer] 07-30-2013 10:06-0400 Body weight 103.42 kg Muna Townsend LPN [employer], [employer].; [employer], [employer] 07-30-2013 10:06-0400 Diastolic blood pressure 83 mm[Hg] Muna Townsend ASHER [employer], [employer].; [employer], [employer] 07-30-2013 10:06-0400 Heart rate 76 /min Muna Townsend PAPER RULER [employer], [employer].; [employer], [employer] 07-30-2013 10:06-0400 Systolic blood pressure 132 mm[Hg] Muna Townsend ASHER [facility], Inc.; [employer], [employer] 06-21-2013 10:13-0400 Body height 163.83 cm Marisela Chavis PAPER RULER [facility], Inc.; [employer], [employer] 06-21-2013 10:13-0400 Body mass index (BMI) [Ratio] 37.69 kg/m2 Marisela Chavis PAPER RULER [facility], Inc.; [employer], [employer] 06-21-2013 10:13-0400 Body surface area Derived from formula 2.06 m2 Marisela Chavis PAPER RULER [facility], Inc.; [employer], [employer] 06-21-2013 10:130400 Body temperature 97.1 [degF] Marisela Chavis PAPER RULER [facility], Inc.; [employer], [employer] 06-21-2013 10:130400 Body weight 101.15 kg Marisela Chavis PAPER RULER [facility], Inc.; [employer], [employer] 06-21-2013 10:13-0400 Diastolic blood pressure 69 mm[Hg] Marisela Chavis [facility], Inc.; [employer], [employer] 06-21-2013 10:13-0400 Heart rate 67 /min Marisela Chavis PAPER RULER [facility], Inc.; [employer], [employer] 06-21-2013 10:13-0400 Systolic blood pressure 111 mm[Hg] Marisela Chavis PAPER RULER [facility], Inc.; [employer], [employer] 03-04-2013 14:05-0500 Body height 163.83 cm Sandra King [facility] Inc.; [employer], [employer] 03-04-2013 14:05-0500 Body mass index (BMI) [Ratio] 35.72 kg/m2 Sandra King LPN [facility], Inc.; [employer], [employer] 03-04-2013 14:05-0500 Body surface area Derived from formula 2.01 m2 Sandra King PAPER RULER [facility], Inc.; [employer], [employer]. 03-04-2013 14:05-0500 Body weight 95.88 kg Sandra Wealonso STERLING [place] [facility], Inc.; [employer], [employer] 03-04-2013 14:05-0500 Diastolic blood pressure 76 mm[Hg] Sandra King LPN [place] [facility], Inc.; [employer], [employer] 03-04-2013 14:05-0500 Heart rate 71 /min Sandra King LPN [place] [facility], Inc.; [employer], [employer] 03-04-2013 14:05-0500 Systolic blood pressure 175 mm[Hg] Sandra King [facility], Inc.; [employer], [employer] 02-18-2013 11:32-0500 Body height 163.83 cm Sandra King LPN [place] [facility], Inc.; [employer], [employer]. 02-18-2013 11:32-0500 Body mass index (BMI) [Ratio] 35.07 kg/m2 Sandra King LPN [place] [facility], Inc.; [employer], [employer]. 02-18-2013 11:32-0500 Body surface area Derived from formula 2 m2 Sandra King LPN [place] [facility], Inc.; [employer], [employer] 02-18-2013 11:32-0500 Body temperature 98 [degF] Sandra King LPN [place] [facility], Inc.; [employer], [employer] 02-18-2013 11:32-0500 Body weight 94.12 kg Sandra King LPN [facility], [facility].; [employer], [employer]. 02-18-2013 11:32-0500 Diastolic blood pressure 82 mm[Hg] Sandra King LPN [employer], [employer].; [employer], [employer] 02-18-2013 11:32-0500 Heart rate 82 /min Sandra King LPN [employer], [employer].; [employer], [employer]. 02-18-2013 11:32-0500 Systolic blood pressure 135 mm[Hg] Sandra King LPN [employer].; [employer]. 01-31-2013 08:07-0500 Body height 163.83 cm Zack Olmos MD Work Phone: [employer].; [employer] 01-31-2013 08:07-0500 Body mass index (BMI) [Ratio] 35.83 kg/m2 Zack Olmos MD Work Phone: [employer].; [employer] 01-31-2013 08:07-0500 Body surface area Derived from formula 2.02 m2 Zack Olmos MD Work Phone: [employer].; [employer]. 01-31-2013 08:07-0500 Body temperature 101 [degF] Zack Olmos MD Work Phone: [employer].; [employer]. 01-31-2013 08:07-0500 Body weight 96.16 kg Zack Olmos MD Work Phone: [employer].; [employer]. 01-31-2013 08:07-0500 Diastolic blood pressure 72 mm[Hg] Zack Olmos MD Work Phone: [employer].; [employer] 01-31-2013 08:07-0500 Heart rate 101 /min Zack Olmos MD Work Phone: [employer].; [employer] 01-31-2013 08:07-0500 Systolic blood pressure 133 mm[Hg] Zack Olmos MD Work Phone: [employer].; [employer]. 01-29-2013 09:57-0500 Body weight 96.62 kg Zack Olmos MD Work Phone: [employer].; [employer] 01-29-2013 09:57-0500 Diastolic blood pressure 78 mm[Hg] Zack Olmos MD Work Phone: [employer].; [employer]. 01-29-2013 09:57-0500 Heart rate 76 /min Zack Olmos MD Work Phone: [employer].; [employer]. 01-29-2013 09:57-0500 Systolic blood pressure 128 mm[Hg] Zack Olmos MD Work Phone: [employer].; [employer]. 07-24-2012 09:20-0400 Body height 163.83 cm Zack Olmos MD Work Phone: [employer].; [employer]. 07-24-2012 09:20-0400 Body mass index (BMI) [Ratio] 36 kg/m2 Zack Olmos MD Work Phone: [employer].; [employer]. 07-24-2012 09:20-0400 Body surface area Derived from formula 2.02 m2 Zack Olmos MD Work Phone: [employer].; [employer] 07-24-2012 09:20-0400 Body weight 96.62 kg Zack Olmos MD Work Phone: [employer].; [employer]. 07-24-2012 09:20-0400 Diastolic blood pressure 72 mm[Hg] Zack Olmos MD Work Phone: [employer].; [employer]. 07-24-2012 09:20-0400 Heart rate 68 /min Zack Olmos MD Work Phone: [employer].; [employer]. 07-24-2012 09:20-0400 Systolic blood pressure 138 mm[Hg] Zack Olmos MD Work Phone: [employer].; [employer]. 01-24-2012 09:38-0500 Body temperature 97.9 [degF] Zack Olmos MD Work Phone: [employer].; [employer]. 01-24-2012 09:38-0500 Body weight 100.25 kg Zack Olmos MD Work Phone: [facility], [employer].; [employer] 01-24-2012 09:38-0500 Diastolic blood pressure 76 mm[Hg] Zack Olmos MD Work Phone: [employer] 01-24-2012 09:38-0500 Heart rate 72 /min Zack Olmos MD Work Phone: [employer], [employer].; [employer] 01-24-2012 09:38-0500 Systolic blood pressure 136 mm[Hg] Zack Olmos MD Work Phone: [employer], [employer].; [employer] 10-18-2011 10:18-0400 Body height 163.83 cm [facility], Inc.; [employer], [employer] 10-18-2011 10:18-0400 Body mass index (BMI) [Ratio] 38.87 kg/m2 [facility] Inc.; [employer] 10-18-2011 10:18-0400 Body surface area Derived from formula 2.09 [address], Inc.; [employer], [employer] 10-18-2011 10:18-0400 Body weight 104.[address] [facility] [facility], Inc.; [employer], [employer] 10-18-2011 10:18-0400 Diastolic blood pressure 89 mm[Hg] [facility] Cary [facility], Inc.; [employer], [employer] 10-18-2011 10:18-0400 Heart rate 72 /min [facility], Inc.; [employer], [employer] 10-18-2011 10:18-0400 Systolic blood pressure 153 mm[Hg] [facility], Inc.; [employer], [employer] 08-02-2011 08:30-0400 Body height 163.83 cm Zack Olmos MD Work Phone: [employer] 08-02-2011 08:30-0400 Body mass index (BMI) [Ratio] 41.07 kg/m2 Zack Olmos MD Work Phone: [employer].; [employer]. 08-02-2011 08:30-0400 Body surface area Derived from formula 2.14 m2 Zack Olmos MD Work Phone: [employer].; [employer]. 08-02-2011 08:30-0400 Body weight 110.22 kg Zack Olmos MD Work Phone: [employer].; [employer]. 08-02-2011 08:30-0400 Diastolic blood pressure 78 mm[Hg] Zack Olmos MD Work Phone: [employer].; [employer]. 08-02-2011 08:30-0400 Heart rate 58 /min Zack Olmos MD Work Phone: [employer].; [employer]. 08-02-2011 08:30-0400 Systolic blood pressure 126 mm[Hg] Zack Olmos MD Work Phone: [employer].; [employer]. 03-29-2011 10:18-0500 Body height 163.83 cm Lesley Armin Abrams PAPER RULER [employer].; [employer]. 03-29-2011 10:18-0500 Body mass index (BMI) [Ratio] 40.59 kg/m2 Lesley C Jose Alberto PAPER RULER [employer].; [employer]. 03-29-2011 10:18-0500 Body surface area Derived from formula 2.13 m2 Lesley C Jose Alberto PAPER RULER [employer].; [employer]. 03-29-2011 10:18-0500 Body weight 108.95 kg Lesley Armin Abrams PAPER RULER [employer].; [employer]. 03-29-2011 10:18-0500 Diastolic blood pressure 77 mm[Hg] Lesley Abrams LPN [employer].; [employer]. 03-29-2011 10:18-0500 Heart rate 93 /min Lesley Abrams LPN [employer].; [employer] 03-29-2011 10:18-0500 Systolic blood pressure 136 mm[Hg] Lesley Abrams LPN [employer].; [employer]. 02-01-2011 10:29-0500 Body height 165.1 cm Zack Olmos MD Work Phone: [employer].; [employer]. 02-01-2011 10:29-0500 Body mass index (BMI) [Ratio] 42.6 kg/m2 Zack Olmos MD Work Phone: [employer].; [employer]. 02-01-2011 10:29-0500 Body surface area Derived from formula 2.2 m2 Zack Olmos MD Work Phone: [employer].; [employer]. 02-01-2011 10:29-0500 Body weight 116.12 kg Zack Olmos MD Work Phone: [employer].; [employer]. 02-01-2011 10:29-0500 Diastolic blood pressure 77 mm[Hg] Zack Olmos MD Work Phone: [employer].; [employer]. 02-01-2011 10:29-0500 Heart rate 65 /min Zack Olmos MD Work Phone: [employer].; [employer]. 02-01-2011 10:29-0500 Systolic blood pressure 122 mm[Hg] Zack Olmos MD Work Phone: [employer].; [employer]. 08-27-2010 08:32-0400 Body weight 114.31 kg Zack Olmos MD Work Phone: [employer].; [employer]. 08-27-2010 08:32-0400 Diastolic blood pressure 71 mm[Hg] Zack Olmos MD Work Phone: [employer].; [employer]. 08-27-2010 08:32-0400 Heart rate 61 /min Zack Olmos MD Work Phone: [employer].; [employer]. 08-27-2010 08:32-0400 Systolic blood pressure 128 mm[Hg] Zack Olmos MD Work Phone: [employer].; [employer]. 05-13-2010 17:01-0500 Body temperature 96.7 [degF] Zack Olmos MD Work Phone: [employer].; [employer]. 05-13-2010 17:01-0500 Body weight 117.03 kg Zack Olmos MD Work Phone: [employer].; [employer]. 05-13-2010 17:01-0500 Diastolic blood pressure 83 mm[Hg] Zack Olmos MD Work Phone: [employer] [employer]. 05-13-2010 17:01-0500 Heart rate 65 /min Zack Olmos MD Work Phone: [employer]. 05-13-2010 17:01-0500 Inhaled oxygen concentration 20 % Zack Olmos MD Work Phone: [employer]. 05-13-2010 17:01-0500 SaO2% (BldA) [Mass fraction] 96 % Zack Olmos MD Work Phone: [employer]. 05-13-2010 17:01-0500 Systolic blood pressure 183 mm[Hg] Zack Olmos MD Work Phone: [employer]. 02-26-2010 08:51-0500 Body weight 119.75 kg Zack Olmos MD Work Phone: [facility], [employer] 02-26-2010 08:51-0500 Diastolic blood pressure 66 mm[Hg] Zack Olmos MD Work Phone: [facility], [employer] 02-26-2010 08:51-0500 Heart rate 59 /min Zack Olmos MD Work Phone: [place] [facility].; [employer] 02-26-2010 08:51-0500 Systolic blood pressure 130 mm[Hg] Zack Olmos MD Work Phone: [place] [facility] [facility], [employer].; [employer] 01-06-2010 15:19-0400 Body height 165.1 cm [facility], [facility].; [employer], [employer]. 01-06-2010 15:19-0400 Body mass index (BMI) [Ratio] 43.43 kg/m2 [facility], [facility].; [employer], [employer]. 01-06-2010 15:19-0400 Body surface area Derived from formula 2.22 m2 [facility], [facility].; [employer] 01-06-2010 15:19-0400 Body temperature 96.9 [degF] [facility] [employer], [employer]. 01-06-2010 15:19-0400 Body weight 118.39 kg [facility], [facility].; [employer], [employer]. 01-06-2010 15:19-0400 Diastolic blood pressure 78 mm[Hg] [facility], [employer].; [employer], [employer]. 01-06-2010 15:19-0400 Heart rate 72 /min [facility], [facility].; [employer], [employer]. 01-06-2010 15:19-0400 Inhaled oxygen concentration 20 % [facility] [employer].; [employer]. 01-06-2010 15:19-0400 SaO2% (BldA) [Mass fraction] 96 % [facility] Townsend [facility] [employer].; [employer]. 01-06-2010 15:19-0400 Systolic blood pressure 160 mm[Hg] [facility] Townsend [facility].; [employer]. Encounters Encounter Date Encounter Type Care Provider Facility Start: 03-30-2023 Orders Only Sherry George DO Work Phone: [facility] Start: 03-30-2023 End: 03-30-2023 Office outpatient visit 25 minutes Zack Olmos MD Work Phone: [facility] Start: 03-30-2023 Zack Olmos MD Work Phone: [employer] [facility] Start: 03-27-2023 End: 03-27-2023 Zack Olmos MD Work Phone: [employer] [facility] Start: 03-24-2023 ambulatory LENIN RAMIREZ [facility] Start: 03-21-2023 End: 03-22-2023 ambulatory SHERRY GEORGE [facility] Start: 01-23-2023 ambulatory LENIN RAMIREZ [facility] Start: 12-22-2022 End: 12-22-2022 Home visit Андрей Claros RN [facility] Procedures Date Procedure [...] End: 04-26-2022 AIRWAY ETT Froy Ochoa Mason TECHNICAL TESTING ENGINEER Work Phone: Start: 04-18-2022 End: 04-19-2022 Ecg [...] 09-20-2019 End: 09-20-2019 PPPS, subseq visit Zack Oloms MD Work Phone: Start: 09-20-2019 End: 09-20-2019 [...] CABG (coronary artery bypass graft) [place] 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 [address] [place] [address] [facility] Start: 06-01-2023 CLASS III : OFFICE VISIT CLASS III : OFFICE VISIT [facility] Start: 05-30-2023 Alanine aminotransferase measurement CLASS III : ALT [facility] Start: 05-30-2023 Thyroid stimulating hormone measurement Class III : TSH [facility] Start: 05-02-2023 End: 05-02-2023 Patient encounter procedure 05/02/2023 2:15 PM EST Office Visit [facility] [address] [facility], [address] [phone] Sherry George DO [address] [place] [address] [facility] Start: 04-25-2023 End: 04-25-2023 Patient encounter procedure 04/25/2023 1:00 PM EST Office Visit [facility] [address] [facility] [place] [address] [place] [address] Sherry George DO [address] [address] [facility] Start: 04-05-2023 CLASS III : OFFICE VISIT CLASS III : OFFICE VISIT [facility] Start: 03-08-2023 End: 12-06-2023 Carcinoembryonic antigen measurement CEA Lab Routine Elevated CEA Malignant neoplasm of ascending colon (HCC) Expected: 03/08/2023 (Approximate), Expires: 12/06/2023 [facility] Immunizations Immunization Date Immunization Notes Care Provider Jef rodarte 05-06-2020 Zack Olmos MD Work Phone: [facility] [employer]. 04-08-2020 Zack Olmos MD Work Phone: [facility]. 11-27-2019 influenza virus vacc ine, unspecified formulation Zack Olmos MD Work Phone: [facility].; [place] [employer]. 11-27-2019 influenza, injectabl e, quadrivalent, contains preservative Zack Olmos MD Work Phone: [facility]. 03-23-2019 zoster vaccine recombinant Leonila Walls [facility] 09-25-2018 Shingrix (PF) Zack Olmos MD Work Phone: [facility].; [employer]. 01-30-2018 pneumococcal polysaccharide vaccine, 23 valent Zack Olmos MD Work Phone: [employer]. 01-11-2017 influenza, injectabl e, quadrivalent, contains preservative Zack Olmos MD Work Phone: [facility].; [employer]. 01-12-2014 pneumococcal conjuga te vaccine, 13 valent Zack Olmos MD Work Phone: [employer].; [employer]. 12-11-2012 influenza, seasonal, injectable Zack Olmos MD Work Phone: [employer].; [employer]. 01-11-2011 influenza, seasonal, injectable Zack Olmos MD Work Phone: [employer].; [employer]. 01-11-2011 Zack Olmos MD Work Phone: [employer].; [employer]. 01-20-2010 influenza, seasonal, injectable Zack Olmos MD Work Phone: [facility].; [facility]. 01-20-2010 Zack Olmos MD Work Phone: [facility].; [facility]. Payers Date Payer Category Payer Unknown MMO [employer] [place] TRADITIONAL xxxxxxxxxxxx 2019-Present xxxxxxxxxxxx [id number] .[id number] 2019 Unknown [id number] .[id number] 2019 Unknown [id number]. 1.13.385.2.7.3 .[id number] 2019 Unknown [id number] 2011 Medicare xxxxxxxxxx [id number] 2011 Medicare MEDICARE MEDICAR E PART A & B xxxxxxxxxxx 2011-Present [place] xxxxxxxxxxx [id number] .[id number] 2011 Medicare [id number] [id number] .[id number] 2011 Medicare MEDICARE MEDICAR E PART A & B [id number] 2011-Present [phone] S [id number] PART A CLAIMS [address] [address] [place] [address] [id number] .370326.315 2011 Medicare [id number] 2011 Unknown COMMERCIAL M[employer] xxxxxxxx 2011-Present xxxxxxxx 1.2.840.245105.1.13.385.2.7.3 .203703.315 2011 Unknown [id number] 1946 Unknown [id number] 2.16.840.1.715167.3.579.2. 1946 Unknown [id number] 2.16.840.1.233913.3.579.2.900 1946 Unknown [id number] 2.16.840.1.421300.3.579.2 1946 Unknown [id number] 2.16.840.1.696094.3.579.2. 1946 Unknown [id number] 2.16.840.1.952582.3.579.2 1946 Unknown [id number] 2.16.840.1.810868.3.579.2 1946 Unknown [id number] 2.16840.1.243765.3.579.2 1946 Unknown [id number] 2.16.840.1.401263.3.579.2 1946 Unknown [id number] 2.16.840.1.597369.3.579.2 1946 Unknown [id number] 2.16.840.1.035308.3.579.2 1946 Unknown [id number] 2.16.840.1.199537.3.579.2 1946 Unknown [id number] 2.16.840.1.070324.3.579.2 1946 Unknown [id number] 2.16.840.1.936477.3.579.2 1946 Unknown [id number] 2.16.840.1.888186.3.579.2 1946 Unknown [id number] 2.16.840.1.498346.3.579.2 1946 Unknown [id number] 2.16.840.1.135463.3.579.2. 1946 Unknown [id number] 2.16.840.1.364631.3.579.2. 1946 Unknown [id number] 2.16.840.1.468577.3.579.2. 1946 Unknown [id number] 2.16.840.1.110606.3.579.2. 1946 Unknown [id number] 2.16.840.1.106151.3.579.2. 1946 Unknown [id number] 2.16.840.1.808951.3.579.2. 1946 Unknown [id number] 2.16.840.1.998293.3.579.2. 1946 Unknown [id number] 2.16.840.1.946821.3.579.2. 1946 Unknown [id number] 2.16.840.1.144187.3.579.2.90 Unknown xxxxxx-[id number] 2.16.840.1.553896.3.249.13 Social History Date Type Detail Facility Start: 05-04-2017 End: 08-10-2021 Tobacco smoking status RIIS Former smoker [facility] End: 03-13-1989 History of tobacco use Current smoker [facility] Start: 1945 Sex Assigned At Not on file [facility] Start: 08-11-2014 Alcohol Comment occasionally [facility] Start: 11-09-2018 End: 04-06-2022 Alcohol intake Current drinker of alcohol (finding) [facility] Start: 07-12-2021 End: 05-31-2022 Exposure to SARS-CoV-2 (event) Not sure [facility] Start: 11-04-2019 End: 08-10-2021 Tobacco use and exposure Never used [facility] Exposure to SARS-CoV -2 (event) Unable to assess [facility] Start: 11-23-2020 End: 12-06-2022 [facility] Start: 11-23-2020 History SDOH Alcohol Comment about q3mo [facility] End: 03-13-1989 History of tobacco use Cigarette Smoker [facility] Start: 04-27-2022 End: 12-06-2022 Alcohol intake Ex-drinker (finding) [facility] Start: 05-31-2022 End: 12-06-2022 Tobacco use panel [facility] Start: 07-20-2018 Gender identity Identifies as male gender (finding) [facility] Start: 07-20-2018 Sexual orientation Heterosexual (finding) [facility] Tobacco smoking status No Smokin g Status Entered [facility] Sex Assigned At Male [facility] Lack of Transportati on (Medical) No [facility] None. [facility], [employer] [facility] Former smoker. [facility] Functional Status Date Assessment Result Facility 11-27-2022 Functional Status Room check performed [facility] 11-27-2022 Functional Status [facility] 11-27-2022 Functional Status Breakfast Percent 25 [facility] 11-27-2022 Functional Status bilateral knee high applied/on [facility] 11-27-2022 Functional Status [facility] 11-27-2022 Functional Status [facility] 11-26-2022 Functional Status Nurse Pricilla you q2hrs Performed 7pm-11pm [facility] 11-26-2022 Functional Status [facility] 11-26-2022 Functional Status [facility] 11-26-2022 Functional Status [facility] 11-26-2022 Functional Status Assistive Isabel ce Walker [facility] 11-25-2022 Functional Status Independent [facility] 11-25-2022 Functional Status [facility] 11-25-2022 Functional Status Done [facility] 11-24-2022 Functional Status Pt's oldest da radha is a nurse and lives close. [facility] 11-24-2022 Functional Status Assistive Equi pment elevated on pillows [facility] 11-24-2022 Functional Status heel(s)s elevated [facility] 11-24-2022 Functional Status [facility] 11-24-2022 Functional Status [facility] 11-24-2022 Functional Status Sensory Deficits None [facility] NEGATED: Highlighted row Functional performance Functional status health issues are not documented [facility] Work Phone: Mental Status Date Assessment Result Facility 11-27-2022 Mental Status Orientation Orie nted x 4 [facility] 11-26-2022 [facility] 11-26-2022 Mental Status Orientation Assessment Oriented x 4 [facility] 11-25-2022 Mental Status [facility] 11-25-2022 Mental Status [facility] NEGATED: Highlighted row Cognitive function [Interpretation] Cognitive status health issues are not documented [facility] Work Phone: Clinical Notes 08-03-2020 to 12-21-2022 Actions Note Date & Type Note Facility documented in this encounter [id number] History of Present illness Narrative* Sherry George, [...] unintentional weight loss. He was admitted to [facility] with sepsis 11/23 - 11/27/22, suspected to be from right sided perineal cellulitis. He never underwent I&D or debridement, and no other source of infection was found. He is currently taking a 2nd week of cefdinir and flagyl. Systems Qa Analyst: Dr. Ramirez General Surgeon, [facility]: Dr. Pizano CANCER HISTORY 03/2022 -- [...] (HCC) 03/2018 Coronary artery disease Dialysis patient ([facility]) M-W-F ED (erectile dysfunction) FSGS (focal [...] BYPASS GRAFT; Surgeon: Mil Dee MD; [place] [facility]; Service: Cardiothoracic CARDIAC CATHETERIZATION N/A 08/11/2014 Procedure: Left Heart Cath Possible PTCA/Stent; Surgeon: Lenin Ramirez MD; [facility]NA[facility] COMPLIANCE; Service: CARDIAC CATHETERIZATION Right 12/31/2014 Procedure: Left Heart Cath Possible PTCA/Stent; Surgeon: Ranulfo Cobb MD; Location: [facility]NA[facility] COMPLIANCE; Service: CARDIAC CATHETERIZATION 08/11/2014 EF: 55% CARDIAC CATHETERIZATION 11/06/2006 EF: 45% CARDIAC CATHETERIZATION 08/09/2005 EF: 50% CARDIAC CATHETERIZATION 07/08/2005 EF: 45% CARDIAC CATHETERIZATION 12/31/2014 EF: 55% COLECTOMY RIGHT Right 04/26/2022 Procedure: RIGHT OPEN HEMICOLECTOMY; Surgeon: Sherry George DO; Location: [facility]; Service: General Surgery CORONARY ANGIOPLASTY WITH STENT PLACEMENT 08/09/2005 NROM- CX, RCA CORONARY ANGIOPLASTY WITH STENT PLACEMENT 07/08/2005 NORM- RCA CORONARY STENT PLACEMENT FOOT SURGERY Right hemodialysis fistula graft placement 12/14/2020 INSERTION PLEURAL CATHETER Right 01/18/2021 Procedure: RIGHT PLEUR X CATHETER PLACEMENT; Surgeon: Jalil Sparks MD; Location: [facility] [place] [facility]; Service: Cardiothoracic INSERTION PLEURAL CATHETER Left 01/19/2021 Procedure: LEFT PLEUR X CATHETER PLACEMENT; Surgeon: Jalil Sparks MD; Location: [facility]; Service: Cardiothoracic INTERVENTIONAL RADIOLOGY PROCEDURE 08/27/2020 IR THORACENTESIS LT 08/27/2020 Jesus Choudhary MD [facility] INTERVENTION RAD INTERVENTIONAL RADIOLOGY PROCEDURE 08/27/2020 IR THORACENTESIS RT 08/27/2020 Jesus Choudhary MD [facility] INTERVENTION RAD INTERVENTIONAL RADIOLOGY PROCEDURE 10/27/2020 IR THORACENTESIS LT 10/27/2020 Varun Kathleen MD [facility] INTERVENTION RAD INTERVENTIONAL RADIOLOGY PROCEDURE 10/27/2020 IR THORACENTESIS RT 10/27/2020 Varun Kathleen MD [facility] INTERVENTION RAD JOINT REPLACEMENT knee replacement KNEE SURGERY REMOVAL PLEURAL CATHETER Bilateral 08/12/2021 Procedure: BILATERAL PLEURAL CATHETERS REMOVAL; Surgeon: Jalil Sparks MD; Location: [facility]; Service: Cardiothoracic RENAL BIOPSY TONSILLECTOMY [...] months, for elevated CEA documented in this [id number] Evaluation + Plan note* Assessment & Plan [...] also not appropriate at the present time. [id number] Evaluation + Plan note* Assessment & Plan Note - Lenin Ramirez MD - 12/06/2022 12:27 PM EDTAssociated Problem(s): Hyperlipidemia He remains on moderate dose, high potency statin therapy which he tolerates well with adequate lipid levels. No changes were made today. [id number] Miscellaneous Notes* Assessment & Plan Note - [...] EDT Associated Problem(s): Coronary artery disease involving benton coronary artery of benton heart without angina pectoris Ed continues doing well from an ischemic standpoint with a long history of coronary disease status post surgical revascularization in August 2020. He has no angina and no nitroglycerin use. documented in this [id number] Evaluation + Plan note* Assessment & Plan [...] therapy given his persistent hypotension and hemodialysis. [id number] Evaluation + Plan note* Assessment & Plan Note - Lenin Ramirez MD - 12/06/2022 12:24 PM EDTAssociated Problem(s): Coronary artery disease involving benton coronary artery of benton heart without angina pectoris Ed continues doing well from an ischemic standpoint with a long history of coronary disease status post surgical revascularization in August 2020. He has no angina and no nitroglycerin use. [id number] History of Present illness Narrative* Lenin Ramirez [...] , Rfl: Assessment/Plan: Coronary artery disease involving benton coronary artery of benton heart without angina pectoris Ed continues doing [...] at the present time. documented in this [id number] Hospital Discharge instructions Patient Education 11/27/2022 13:25:49 [...] Follow these instructions at home: Medicines Take jifw-sqx-uunwius and prescription medicines only as told by [...] often using soap and water. Use hand spindraw operator if soap and water are not available. [...] 10/05/2018 Document Revised: 10/05/2018 Document Reviewed: 10/05/2018 [employer] Patient Education 2020 [employer] Follow Up Care 11/23/2022 18:14:48 With:ZACK OLMOS MD Address: [address] [place] [address] [place] [address] [phone] When:3-7 days [facility] 09-17-2023 Discharge summary Date of [...] depression and gout. Patient was admitted to [facility] on 11/23/2022 as a transfer from [facility] due to septic shock secondary to peritoneal [...] OLMOS MD When Within 3-7 days Where: [address] [place] [address] [place] [address] [phone] Follow Up Labs/Studies 1. No follow up [...] KATELIN MEZA DO on 11/27/2022 02:06 PM [facility] [id number] Note Discharge Instructions Thank you for allowing [facility] to assist you with your healthcare needs. The following is importantdischarge information regarding your hospital visit. Your Care Team ZACK OLMOS MD What to do next Follow Up Appointments Follow Up with ZACK OLMOS MD When Within 3-7 days Where: [address] [place] [address] [place] [address] [phone] The Following Activity and Diet Have Been [...] 24 hours Duration: 7 Days Pickup at [facility] 1727 New metroNIDAZOLE (metroNIDAZOLE 500 mg oral tablet) 1 tab(s) by mouth Every 8 hours Duration: 7 Days Pickup at [facility] 1724 Unchanged albuterol (albuterol 2.5 mg/ 3 [...] by mouth Once a day Pharmacy Information [facility]24: [address] [place], [place] [phone] Please take this list to your next [...] Follow these instructions at home: Medicines Take hyjv-qvn-zeixjrb and prescription medicines only as told by [...] often using soap and water. Use hand spindraw operator if soap and water are not available. [...] 10/05/2018 Document Revised: 10/05/2018 Document Reviewed: 10/05/2018 [employer] Patient Education 2020 [employer]. Additional Information VACCINATE! IT SAVES LIVES! Members of the community who have not yet received the COVID-19 vaccine and would like to receive it can visit one of [facility] vaccine clinics. There are many vaccine clinic locations within the [facility]. For locations and available times, please visit [email or web address].[place].gov/. It is important to note that some COVID mobile vaccine clinics are held outdoors and may be canceled in rainy or stormy conditions. To learn more about pediatric vaccinations (ages 5-11), we invite you to visit the [facility] webpage. https://www.[email or web address].org/pages/[email or web address]-Jfplx-Hkdjtxqtnte-Vdowkrevur-Qwkmz-Qhf stions.htmlTo learn more about the COVID-19 vaccine, we invite you to visit the CDC website for a list of frequently asked questions.https://www.cdc.gov/coronavirus/2019-ncov/vaccines/faq.html [facility] Patient Portal Access Instructions: Stay connected with your healthcare team and access your personal medical information anytime with the [facility] Patient Portal. Please follow the directions below to create your [facility] account: 1.Access the email account you provided upon registration to the hospital/physician office.2.Look for an invitation email from [facility].3.Open the email and access the invitation link: AcceptInvitation to [facility].4.Fill in the required jimenez to create your account. To access your account, visit [employer]Netsertive, Inchart. Click the blue button labeled Access Patient [...] who you will allowto register on the [facility] Patient Portal for access to your information. You can also access the [facility] on the [facility] catracho. Simply click on Patient Portal and then log into your account. If you would like to receive a full copy of your medical records, please contact the [facility] Medical Records Department by calling [phone], Monday through Monday between 8 a.m. and [...] Call your local pharmacy or go to [email or web address] to find one close to you.3.Make use of household items: Use cat litter or old coffee grounds to dispose medications if other options arenot available. Mix your drugs with these household products, seal them in an airtight container andthrow it into the garbage. Call [facility]: [phone] to be sure your drugs can be [...] aware that I should contact my doctor. 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: Date/Time: Relationship to Patient: Witness Name/Signature: Date/Time: [id number] Res[facility] therapy Hospital Progress note Respiratory Therapy Evaluation Entered On: 11/27/2022 10:11 EDT Performed On: 11/27/2022 10:11 EDT by Zuly Rodriguez SHEET ROCK TAPER Respiratory Therapy Evaluation RT Assessment [Frequency/Schedule] : changed to TID per protocol Zuly Rodriguez SHEET ROCK TAPER - 11/27/2022 10:52 EDT Chest X-Ray : Infiltrates, atelectasis, pleural effusion Breath Sounds (RT) : Decreased bilaterally Respiratory Pattern (RT) : Regular RR=12-20 Cough (RT) : Strong, non-productive Respiratory Therapy Evaluation Score : 8 Respiratory Evaluation Triage Score : 4 - (6-10) Freq: TIDRT & Albuterol Q2hRT prn Zuly Rodriguez SHEET ROCK TAPER - 11/27/2022 10:28 EDT Pulmonary Status : Pulmonary disorder Surgical Status : No surgeries Level of Activity : Ambulatory with assistance Mental Status : Alert, oriented Zuly Rodriguez SHEET ROCK TAPER - 11/27/2022 10:11 EDT Digitally Signed by Zuly Rodriguez SHEET ROCK TAPER on 11/27/2022 10:52 AM [id number] Note Date of Service 11/26/2022 Chief Complaint [...] depression and gout. Patient was [facility]22 as a transfer from [facility] due to septic shock secondary to peritoneal [...] KATELIN MEZA DO on 11/26/2022 02:09 PM [facility] [id number] Nephrology Progress note Date of Service November [...] ROSANNA KEITA MD on 11/26/2022 12:38 PM [facility] HospitalLqkrrblp71-39-0433 Note Date of Service 11/25/22 Chief Complaint [...] surgery and anxiety/depression. Patient was transferred from [facility] to [facility] on 11/23/2022 with worsening right-sided [...] blood pressure stabilized, he was transferred to [facility] on 11/25/2022. Patient seen today [...] by JOHNNY VALENCIA on 11/25/2022 03:01 PM [facility] HospitalFzqhqbmx84-97-8632 Note Date of Service 11/25/22 Chief Complaint [...] surgery and anxiety/depression. Patient was transferred from [facility] to [facility] on 11/23/2022 with worsening right-sided [...] blood pressure stabilized, he was transferred to [facility] on 11/25/2022. Patient seen today [...] by JOHNNY VALENCIA on 11/25/2022 03:01 PM [facility] [id number] Nephrology Progress note Date of Service 11-25 [...] ASHLEY MARLEY MD on 11/25/2022 10:45 AM [facility] [id number] Respiratory therapy Hospital Progress note Respiratory Therapy [...] by Avi Valencia on 11/24/2022 08:33 PM [facility] HospitalIbvcnyco12-17-2028 History and physical note Date of Service 11/24/2022 Chief Complaint Weakness, fatigue, vomiting History of Present Illness This is a 77-year-old gentleman with history of ESRD on HD [M/W/F], CAD s/p CABG, Paroxysmal A.fib on Amiodarone, not on anticoagulation due to recurrent bleeding from dialysis site. He presents from [facility] for worsening right perianal pain associated [...] cough, loss of consciousness. On arrival to [facility] he was hypotensive, tachycardic, in atrial fibrillation. He was given gentle IV fluids and broad-spectrum antibiotics. CT scan of the abdomen did not show any abscess/fluid collection. Chest x-ray showed no acute abnormality. He was started on peripheral norepinephrine andbe transferred to [facility] medical intensive care unit for [...] CONRADO PEREZ MD on 11/24/2022 07:02 AM [facility] HospitalXuuvktzg26-85-9551 Evaluation + Plan noteExtracted from: Title:History and [...] He presented to the emergency room at [facility] in [place] with perianal pain and fatigue. Apparently, he was also noted to have altered mental status. This is after he underwent dialysis for his chronic end-stage kidney disease. He was found to have perianal redness, however, CT scan of the abdomen showed no abscess formation. He was found to be slightly hypotensive and was given IV fluids and started on norepinephrine and transferred to [facility]. Repeat CAT scan of the [...] consultation if cellulitis worsens Anjali Lopez MD [facility] Diagnostic Tests Pending * Urinalysis 11/24/22 [facility] 09-14-2023 Nephrology Consult note Date [...] ASHLEY MARLEY MD on 11/24/2022 10:24 AM [facility] HospitalPglubbbv78-46-0860 Note ORIGINAL EXAMINATION: CT OF THE ABDOMEN [...] Sign Date: 11/24/2022 7:33:13 AM Ordering Provider: [facility]09-14-2023 Note ORIGINAL EXAMINATION: ONE XRAY VIEW [...] Sign Date: 11/24/2022 6:36:00 AM Ordering Provider: [facility]09-14-2023 NoteAtrial fibrillation Nonspecific IVCD with LAD Inferior infarct, old Electronic Signature: TIP LUCIO MD 11/24/2022 12:14:16[facility] 09-14-2023 History and physical note Date of Service 11/24/2022 Chief Complaint Weakness, fatigue, vomiting History of Present Illness This is a 77-year-old gentleman with history of ESRD on HD [M/W/F], CAD s/p CABG, Paroxysmal A.fib on Amiodarone, not on anticoagulation due to recurrent bleeding from dialysis site. He presents from [facility] for worsening right perianal pain associated [...] cough, loss of consciousness. On arrival to [facility] he was hypotensive, tachycardic, in atrial fibrillation. He was given gentle IV fluids and broad-spectrum antibiotics. CT scan of the abdomen did not show any abscess/fluid collection. Chest x-ray showed no acute abnormality. He was started on peripheral norepinephrine andbe transferred to [facility] medical intensive care unit for [...] STATUS Plan of care discussed with Dr. Cahmpion. Problem List/Past Medical History Ongoing No qualifying [...] CONRADO PEREZ MD on 11/24/2022 07:02 AM [facility] HospitalCdwtsnvr50-76-0478 Telephone encounter Note* Telephone Encounter - Lima Beasley TECHNOLOGIST - 11/03/2022 3:01 PM EDT Prescription for Amiodarone 100 was sent to the wrong pharmacy [id number] Miscellaneous Notes* Telephone Encounter - Lima Beasley TECHNOLOGIST - 11/03/2022 3:01 PM EDT Prescription for Amiodarone 100 was sent to the wrong pharmacy documented in this [id number] Patient's home Progress note* Actions The pt's dressing and wound care had been completed earlier this morning. The pt is requesting that the dressing not be removed, and no picture taken as the wound is in a private area, and the pt has a visitor present at this time. The pt does not wish to interrupt the visit. documented in this encounter [id number] Patient's home Progress note* Actions Rehab Potential: good Clinical Summary/ DINORAH Tijeras the Picture: Cert period 10/28/22 - 12-26-22 Why is home care continuing to see this patient (any change in status, diagnosis, or new treatments)? Wound education/assessment. Pt still has small open area to his coccyx. Amirah continues to be placed in the wound bed, and has shown progress. Was there any change in the disciplines caring for this patient (new PT, MEDICAL VAN DRIVER d/c)? No. SN continues. Any labs or [...] home care services. documented in this encounter [id number] Patient's home Progress note* Actions Rehab Potential: good Clinical Summary/ DINORAH Tijeras the Picture: Cert period 10/28/22 - 12-26-22 Why is home care continuing to see this patient (any change in status, diagnosis, or new treatments)? Wound education/assessment. Pt still has small open area to his coccyx. Amirah continues to be placed in the wound bed, and has shown progress. Was there any change in the disciplines caring for this patient (new PT, MEDICAL VAN DRIVER d/c)? No. SN continues. Any labs or [...] home care services. documented in this encounter [id number] Patient's home Progress note* Actions The pt's dressing and wound care had been completed earlier this morning. The pt is requesting that the dressing not be removed, and no picture taken as the wound is in a private area, and the pt has a visitor present at this time. The pt does not wish to interrupt the visit. documented in this encounter [id number] Telephone encounter Note* Telephone Encounter - Dee [...] I received assistance letter ($1200) from [facility] for Verquvo 5mg tab. Ed has not [...] We will see you December 06.Janae Gonzalez [id number] Miscellaneous Notes* Telephone Encounter - Dee Winston [...] I received assistance letter ($1200) from [facility] for Verquvo 5mg tab. Ed has not [...] you December 06.Janae Gonzalez documented in this [id number] Patient's home Progress note* Actions The pt's dressing and wound care had been completed earlier this morning. The pt is requesting that the dressing not be removed, and no picture taken as the wound is in a private area, and the pt has a visitor present at this time. The pt does not wish to interrupt the visit. documented in this encounter [id number] Note* Addendum Note - Froy Mason CRNA - 10/14/2022 3:49 PM EDT Addendum created 10/14/22 154 by Froy Mason CRNA Clinical Note Signed, Intraprocedure Blocks edited [id number] Miscellaneous Notes* Addendum Note - Froy Mason CRNA - 10/14/2022 3:49 PM EDT Addendum created 10/14/22 154 by Froy Mason CRNA Clinical Note Signed, Intraprocedure Blocks edited documented in this [id number] Patient's home Progress note* Actions The pt stands at his rollato r when his wound care is performed. Today, the picture was taken, as it was last week, with the [employer] catracho. the phone was then set down, [...] the face page of the pt on [employer] was visible. the photo was lost. Measurements recorded. documented in this encounter [id number] Miscellaneous Notes* Home Health - Amparo Goel LPN - 08/18/2022 2:54 PM EDT Missed Visit. Patient did not want a visit. today. documented in this [id number] Patient's home Note* Home Health - Amparo Goel LPN - 08/18/2022 2:54 PM EDT Missed Visit. Patient did not want a visit. today. [id number] Telephone encounter Note* Telephone Encounter - Lima Beasley TECHNOLOGIST - 07/26/2022 9:00 AM EDT Amiodarone 200mg was DC'd [id number] Miscellaneous Notes* Telephone Encounter - Lima Beasley TECHNOLOGIST - 07/26/2022 9:00 AM EDT Amiodarone 200mg was DC'd documented in this [id number] Patient's home Progress note* Narratives Pt and spouse agreeable to d ischarge today. Pt reports attempts compliance with HEP daily, and is trying to walk more. Pt mowed his yard yesterday on the riding mower. documented in this encounter [id number] Evaluation + Plan note* Assessment & Plan Note - Lenin Ramirez MD - 05/31/2022 12:12 PM EDTAssociated Problem(s): Chronic systolic congestive heart failure (HCC) His recent echocardiogram read demonstrated significant LV dysfunction with an ejection fraction approximate 25 to 30%. Fortunately he has no overt signs or symptoms of heart failure on his current regimen. No changes were made today. [id number] Evaluation + Plan note* Assessment & Plan Note - Lenin Ramirez MD - 05/31/2022 12:12 PM EDTAssociated Problem(s): Essential hypertension His blood pressure which had been quite labile because of his hemodialysis, has been reasonably well controlled on his current regimen with no significant highs or lows. I made no changes today. [id number] Miscellaneous Notes* Assessment & Plan Note - [...] EDT Associated Problem(s): Coronary artery disease involving benton coronary artery of benton heart without angina pectoris Given the extensive nature of this gentlemen's disease he is actually doing quite well now several years post CABG. He has no ischemic symptoms and remains relatively functional given all his other issues. No changes were made in his antianginal therapy. documented in this [id number] Evaluation + Plan note* Assessment & Plan Note - Lenin Ramirez MD - 05/31/2022 12:11 PM EDT Associated Problem(s): Coronary artery disease involving benton coronary artery of benton heart without angina pectoris Given the extensive nature of this gentlemen's disease he is actually doing quite well now several years post CABG. He has no ischemic symptoms and remains relatively functional given all his other issues. No changes were made in his antianginal therapy. [id number] History of Present illness Narrative* Lenin Ramirez [...] standpoint. He is scheduled to see his watch case polisher soon and I reiterated the importance of [...] 25 tablet, Rfl: 4 [facility] [facility] Administer 3 L into one nostril as [...] Rfl: 3 Assessment/Plan: Coronary artery disease involving benton coronary artery of benton heart without angina pectoris Given the extensive [...] changes were made today. documented in this [id number] Patient's home Progress note* Narratives 76 yo male referred to [facility] services following hospitalization from 04/26/22-04/30/22 for R colon cancer and is s/p hemicolectomy on 04/26/22. Pt is on continuous O2 with BiPAP. PMHX: malignant neoplasm of ascending colon, MARCELO on CPAP, B pleural effusion, COPD, paraoxysmal v-tach, HTN, CAD, NSTEMI, paraoxysmal a-fib, CKD stage IV, ESRD on dialysis, dyspnea on exertion, UT s/p CABG in 10/2020, anemia, PNA, sepsis, [...] wheel chair, transport chair, FWW, lift chair, chrome tanner, tripod cane, bath chair, elevated toilet seat, [...] complete, PT 2x2, 1x1 Skilled interventions at [facility] included: Education provided for edema management, abdominal precautions, abdominal bracing, avoidance of valsalva, recommended use of gait belt and POC with pt and spouse agreeing/consenting. All questions answered, contact information provided for future questions/concerns. documented in this encounter [id number] Anesthesiology Postoperative evaluation and management note * Anesthesia Postprocedure Evaluation - Juan Mccallum MD - 04/26/2022 12:00 PM EST Anesthesia Post Evaluation * * Refer to nursing documentation for PACU vitals * * Patient participation: patient participated Mental status: sleepy but conscious Pain management: adequate Anesthetic complications: no Nausea / vomiting: no Respiratory / airway status: nasal cannula Postoperative hydration: hemodynamically stable [facility] Work Phone: 1(663) 265-469102-14-2023 Surgical operation note* Anesthesia Postprocedure Evaluation - [...] Comment: 11/09/2021 7:47 AM Patient Status: Outpatient Ic Designer Standard Cells: Zenia Randolph, ISIDORO, RVT Exam Type: ECHOCARDIOGRAM LIMITED WITH CONTRAST Study Info Indications - Re-assess LV function I50.22 - Chronic systolic (congestive) heart failure Referring Physician: LENIN RAMIREZ ; [id number] BMI: 29.91 kg/m2 Summary 1. Limited Empty [...] anemia Other Positive: cancer documented in this [id number] Procedure anesthesia Narrative * Procedure Summary Procedure [...] Андрей Claros RN documented in this encounter [id number] Anesthesiology procedure note* Anesthesia Procedure Notes - Froy Mason CRNA - 04/26/2022 10:19 AM ESTAssociated Order(s): NG/OG Tube NG/OG Tube Tube type: orogastric Tube size: 18 Fr Tube location: mouth Placement verification: suction return *See MAR for medication administration [facility] Work Phone: 1(129) 432-957202-14-2023 Anesthesiology procedure note* Anesthesia Procedure Notes - [...] medic student *See MAR for medication administration [id number] Anesthesiology Preoperative evaluation and management note * [...] Comment: 11/09/2021 7:47 AM Patient Status: Outpatient Ic Designer Standard Cells: Zenia Randolph, VINICIUSCS, RVT Exam Type: ECHOCARDIOGRAM LIMITED WITH CONTRAST Study Info Indications - Re-assess LV function I50.22 - Chronic systolic (congestive) heart failure Referring Physician: LENIN RAMIREZ ; [id number] BMI: 29.91 kg/m2 Summary 1. Limited Empty [...] / Musculoskeletal Positive: anemia Other Positive: cancer [id number] History of Present illness Narrative* Sherry George DO - 04/06/2022 8:39 AM EST NEW PATIENT -- CECAL MASS This is a 76 y/o male who presents to office at the request of Dr. Pizano, surgeon at [facility], for evaluation and treatment of a [...] albuminuria creatinine ratio less than 30 mg/g ([facility]) COPD, severe ([facility]) 03/2018 Coronary artery disease FSGS (focal segmental glomerulosclerosis) Hyperlipidemia Hypertension MRSA (methicillin resistant Staphylococcus aureus) UNKNOWN Myocardial infarction ([facility]) NYHA class 4 heart failure with reduced ejection fraction ([facility]) LVEF 30% MARCELO on CPAP 2018 Pneumonia Sepsis ([facility]) Current Outpatient Medications: acetaminophen (TYLENOL) 325 [...] BYPASS GRAFT; Surgeon: Mil Dee MD; [place] [facility] [place]; Service: Cardiothoracic CARDIAC CATHETERIZATION N/A 08/11/2014 Procedure: Left Heart Cath Possible PTCA/Stent; Surgeon: Lenin Ramirez MD; [place] [facility]NA[facility] COMPLIANCE; Service: CARDIAC CATHETERIZATION Right 12/31/2014 Procedure: Left Heart Cath Possible PTCA/Stent; Surgeon: Ranulfo Cobb MD; Location: [facility]NA[facility] COMPLIANCE; Service: CARDIAC CATHETERIZATION 08/11/2014 EF: 55% CARDIAC [...] CATHETER PLACEMENT; Surgeon: Jalil Sparks MD; Location: [facility] [place]BRID [place]; Service: Cardiothoracic INSERTION PLEURAL CATHETER Left 01/19/2021 Procedure: LEFT PLEUR X CATHETER PLACEMENT; Surgeon: Jalil Sparks MD; Location: [facility] [place]; Service: Cardiothoracic INTERVENTIONAL RADIOLOGY PROCEDURE 08/27/2020 IR THORACENTESIS LT 08/27/2020 Jesus Choudhary MD [facility] INTERVENTION RAD INTERVENTIONAL RADIOLOGY PROCEDURE 08/27/2020 IR THORACENTESIS RT 08/27/2020 Jesus Choudhary MD [facility] INTERVENTION RAD INTERVENTIONAL RADIOLOGY PROCEDURE 10/27/2020 IR THORACENTESIS LT 10/27/2020 Varun Kathleen MD [facility] INTERVENTION RAD INTERVENTIONAL RADIOLOGY PROCEDURE 10/27/2020 IR THORACENTESIS RT 10/27/2020 Varun Kathleen MD [facility] INTERVENTION RAD JOINT REPLACEMENT knee replacement KNEE SURGERY REMOVAL PLEURAL CATHETER Bilateral 08/12/2021 Procedure: BILATERAL PLEURAL CATHETERS REMOVAL; Surgeon: Jalil Sparks MD; Location: [facility] [place]; Service: Cardiothoracic RENAL BIOPSY TONSILLECTOMY [...] ascending colon (HCC) Coronary artery disease involving benton coronary artery of benton heart without angina pectoris S/P CABG (coronary [...] medical and cardiac clearance documented in this [id number] History of Present illness Narrative* Christina Hanley RN - 12/15/2021 3:23 PM EDT Referral received from [facility] today--Call received from [facility] to see if [facility] could accept. Katt at [facility] at this time, advised [facility] could not accept documented in this [id number] Note* Addendum Note - Rachel Strange MA - 09/01/2021 1:56 PM EDTAddended by: RACHEL STRANGE on: 09/01/2021 01:56 PM Modules accepted: Orders [id number] Note* Addendum Note - Rachel Strange MA - 09/01/2021 1:56 PM EDTAddended by: RACHEL STRANGE on: 09/01/2021 01:56 PM Modules accepted: Orders [id number] Miscellaneous Notes* Addendum Note - Rachel Strange [...] as well. Called pharmacy and spoke to [employer] ([employer]) and she ran the voucher card it covered the 2.5 mg for 2 weeks. Will mail the patient 5 mg samples to cover the other 2 weeks. Called and spoke to patient's and explained the above. She was very thankful. Verquvo 5 mg every day Qty 14 Lot- [id number] EXP-04/15/2022 * Telephone Encounter - Lenin Ramirez [...] assured me they have a very generous' Category Analyst program. * Telephone Encounter - Rachel Strange MA - 09/01/2021 12:27 PM EDT Once rx is sent and signed, I will call pharmacy and check roque. I also reached out to the rep, will wait to hear a response regarding assistance with the drug. Samples are available of this drug though at [facility], if needed. * Telephone Encounter - Dee [...] increase to5 mg daily. documented in this [id number] Miscellaneous Notes* Addendum Note - Rachel Strange MA - 09/01/2021 1:56 PM EDTAddended by: RACHEL STRANGE on: 09/01/2021 01:56 PM Modules accepted: Orders * Telephone Encounter - Rachle Strange MA - 09/01/2021 1:20 PM EDT Yes, of course. Called and spoke to [employer] ([employer]) to get a copay for the med and it will require a PA first.I will work on PA once it comes through fax. Rep stopped by and gave me free 30 day voucher cards, which covers the 2.5 mg for 2 weeks and 5 mg for 2 weeks as well. Called pharmacy and spoke to [employer] ([employer]) and she ran the voucher card it covered the 2.5 mg for 2 weeks. Will mail the patient 5 mg samples to cover the other 2 weeks. Called and spoke to patient's and explained the above. She was very thankful. Verquvo 5 mg every day Qty 14 Lot- [id number] EXP-04/15/2022 * Telephone Encounter - Lenin Ramirez [...] assured me they have a very generous' Category Analyst program. * Telephone Encounter - Rachel Strange MA - 09/01/2021 12:27 PM EDT Once rx is sent and signed, I will call pharmacy and check roque. I also reached out to the rep, will wait to hear a response regarding assistance with the drug. Samples are available of this drug though at [facility], if needed. * Telephone Encounter - Dee [...] increase to5 mg daily. documented in this [id number] Telephone encounter Note* Telephone Encounter - Rachel Strange MA - 09/01/2021 1:20 PM EDT Yes, of course. Called and spoke to [employer] ([employer]) to get a copay for the med and it will require a PA first.I will work on PA once it comes through fax. Rep stopped by and gave me free 30 day voucher cards, which covers the 2.5 mg for 2 weeks and 5 mg for 2 weeks as well. Called pharmacy and spoke to [employer] ([employer]) and she ran the voucher card it covered the 2.5 mg for 2 weeks. Will mail the patient 5 mg samples to cover the other 2 weeks. Called and spoke to patient's and explained the above. She was very thankful. Verquvo 5 mg every day Qty 14 Lot- [id number] EXP-04/15/2022 [id number] Telephone encounter Note* Telephone Encounter - Lenin Ramirez MD - 09/01/2021 1:03 PM EDT Thank you. Is there a chance we could send Ed 2 weeks of the 2.5 dose followed by 2 weeks of the 5.0 dose. If he tolerates that then we can work on the prescription. I did speak with the rep at the [facility] last week and he assured me they have a very generous' Category Analyst program. [id number] Miscellaneous Notes* Telephone Encounter - Lenin Ramirez MD - 09/01/2021 1:03 PM EDT Thank you. Is there a chance we could send Ed 2 weeks of the 2.5 dose followed by 2 weeks of the 5.0 dose. If he tolerates that then we can work on the prescription. I did speak with the rep at the [facility] last week and he assured me they have a very generous' Category Analyst program. * Telephone Encounter - Rachel Strange MA - 09/01/2021 12:27 PM EDT Once rx is sent and signed, I will call pharmacy and check roque. I also reached out to the rep, will wait to hear a response regarding assistance with the drug. Samples are available of this drug though at [facility] and [facility], if needed. * Telephone Encounter - Dee [...] increase to5 mg daily. documented in this [id number] Telephone encounter Note* Telephone Encounter - Rachel Strange MA - 09/01/2021 12:27 PM EDT Once rx is sent and signed, I will call pharmacy and check roque. I also reached out to the rep, will wait to hear a response regarding assistance with the drug. Samples are available of this drug though at [facility] and [facility], if needed. [id number] Telephone encounter Note* Telephone Encounter - Dee [...] 2 weeks then increase to5 mg daily. [id number] Patient's home Progress note* Actions Call made [...] or his . documented in this encounter [id number] Evaluation + Plan note* Assessment & Plan Note - Lenin Ramirez MD - 08/17/2021 12:40 PM EDTAssociated Problem(s): Essential hypertension His blood pressure is excellent on his current regimen. I made no changes today. [id number] Evaluation + Plan note* Assessment & Plan Note - Lenin Ramirez MD - 08/17/2021 12:40 PM EDTAssociated Problem(s): Coronary artery disease involving benton coronary artery of benton heart without angina pectoris He has no ischemic changes on his EKG and no ischemic symptoms. [id number] Miscellaneous Notes* Assessment & Plan Note - Lenin Ramirez MD - 08/17/2021 12:40 PM EDTAssociated Problem(s): Essential hypertension His blood pressure is excellent on his current regimen. I made no changes today. * Assessment & Plan Note - Lenin Ramirez MD - 08/17/2021 12:40 PM EDT Associated Problem(s): Coronary artery disease involving benton coronary artery of benton heart without angina pectoris He has no [...] candidate for device implantation. documented in this [id number] Evaluation + Plan note* Assessment & Plan [...] may be a candidate for device implantation. [id number] History of Present illness Narrative* Lenin Ramirez [...] rhythm with sinus arrhythmia, possible old anterior UT, nonspecific T wave changes. Assessment/Plan: Chronic systolic [...] for device implantation. Coronary artery disease involving benton coronary artery of benton heart without angina pectoris He has no ischemic changes on his EKG and no ischemic symptoms. Essential hypertension His blood pressure is excellent on his current regimen. I made no changes today. documented in this [id number] Patient's home Progress note* Actions Pt had his pleurex drains re moved last week. Sites are CDI open to air. Pt was started on new medication to assist with sleep and some restless leg problems he has been having at night. [facility] plan is to make 2 more visits over the next 2 weeks and then discharge. documented in this encounter [id number] History of Present illness Narrative* Niurka Santana PA-C - 08/03/2021 10:45 AM EDT Spoke to Mrs Gonzalez over the phone to review recent CT results for her and plan to remove both of his pleural catheters as they have not been putting out any drainage for quite some time. Tentative plan for next . She verbalized understanding and was agreeable. documented in this [id number] Patient's home Progress note* Actions Call placed [...] voicemail available for the nurse line. Only button sewer hand Nilesh. Another call will be made tomorrow [...] his incentive spirometer. documented in this encounter [id number] Patient's home Progress note* Actions Pleurex catheters were not d rained today. The pt has a f/u appt with the surgeon in 2 days to discuss the possiblity of removing them d/t the drains not putting out any drainage over the last 3 weeks. documented in this encounter [id number] Miscellaneous Notes* Telephone Encounter - Lima Beasley TECHNOLOGIST - 04/29/2021 2:34 PM EST Pt needs samples of Eliquis 5mg mailed to him documented in this [id number] History of Present illness Narrative* Jalil Sparks [...] albuminuria creatinine ratio less than 30 mg/g ([facility]) COPD, severe ([facility]) 03/2018 Coronary artery disease FSGS (focal segmental glomerulosclerosis) Hyperlipidemia Hypertension Myocardial infarction ([facility]) NYHA class 4 heart failure with reduced ejection fraction ([facility]) LVEF 30% MARCELO on CPAP 2018 Past Surgical History: Procedure Laterality Date CABG N/A 09/03/2020 Procedure: CORONARY ARTERY BYPASS GRAFT; Surgeon: Mil Dee MD; [place] [facility] [place]; Service: Cardiothoracic CARDIAC CATHETERIZATION N/A 08/11/2014 Procedure: Left Heart Cath Possible PTCA/Stent; Surgeon: Lenin Ramirez MD; Location: [facility]NAGER OF COMPLIANCE; Service: CARDIAC CATHETERIZATION Right 12/31/2014 Procedure: Left Heart Cath Possible PTCA/Stent; Surgeon: Ranulfo Cobb MD; Location: [facility] MANA[facility] OF COMPLIANCE; Service: CARDIAC CATHETERIZATION 08/11/2014 EF: 55% CARDIAC [...] CATHETER PLACEMENT; Surgeon: Jalil Sparks MD; Location: [facility] HYBRID OR; Service: Cardiothoracic INSERTION PLEURAL CATHETER Left 01/19/2021 Procedure: LEFT PLEUR X CATHETER PLACEMENT; Surgeon: Jalil Sparks MD; Location: [facility] [place]; Service: Cardiothoracic INTERVENTIONAL RADIOLOGY PROCEDURE 08/27/2020 IR THORACENTESIS LT 08/27/2020 Jesus Choudhary MD [facility] INTERVENTION RAD INTERVENTIONAL RADIOLOGY PROCEDURE 08/27/2020 IR THORACENTESIS RT 08/27/2020 Jesus Choudhary MD [facility] INTERVENTION RAD INTERVENTIONAL RADIOLOGY PROCEDURE 10/27/2020 IR THORACENTESIS LT 10/27/2020 Vraun Kathleen MD [facility] INTERVENTION RAD INTERVENTIONAL RADIOLOGY PROCEDURE 10/27/2020 IR THORACENTESIS RT 10/27/2020 Varun Kathleen MD [facility] INTERVENTION RAD JOINT REPLACEMENT knee replacement KNEE [...] Imaging: CXR reviewed today. Jalil Sparks MD [facility] [address], [address] [place] [address] Office: [phone] [email or web address] [employer] documented in this [id number] History of Present illness Narrative* Niurka Santana [...] can contact our office. documented in this [id number] Miscellaneous Notes* Addendum Note - Erick Devi MD - 01/18/2021 12:11 PM EST Addendum created 01/18/21 1211 by Erick Devi MD Attestation recorded in Intraprocedure, Intraprocedure Attestations filed documented in this [id number] Procedure anesthesia Narrative * Procedure Summary Procedure [...] Radha Lopez RN documented in this encounter [id number] Surgical operation note* Anesthesia Postprocedure Evaluation - [...] COPD sleep apnea Cardiovascular Positive: hypertension past UT, CAD, CABG/stent, dysrhythmias (VTACH, PAF) CHF, hyperlipidemia, cardiomyopathy pulmonary hypertension Gastrointestinal / Hepatic / Renal Positive: renal disease and CRI Endocrine / Musculoskeletal Positive: anemia documented in this [id number] History of Present illness Narrative* Jalil Sparks MD - 01/13/2021 4:12 PM EDT Name: Minh Gonzalez : 1945 Date: 01/13/21 Provider: Jlail Sparks MD Referring Provider: Park Hawk CNP [...] 2 (two) times a day [facility] MONTHFREE [facility] [id number] [facility] [id number] [facility] [address] [place] [id number] . ASCORBATE CALCIUM (VITAMIN C ORAL) Take [...] albuminuria creatinine ratio less than 30 mg/g ([facility]) COPD, severe ([facility]) 03/2018 Coronary artery disease FSGS (focal segmental glomerulosclerosis) Hyperlipidemia Hypertension Myocardial infarction (HCC) 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) LVEF 30% MARCELO on CPAP 2018 Past Surgical History: Procedure Laterality Date CABG N/A 09/03/2020 Procedure: CORONARY ARTERY BYPASS GRAFT; Surgeon: Mil Dee MD; Location: [facility] [place]; Service: Cardiothoracic CARDIAC CATHETERIZATION N/A 08/11/2014 Procedure: Left Heart Cath Possible PTCA/Stent; Surgeon: Lenin Ramirez MD; Location: [facility]NAGER OF COMPLIANCE; Service: CARDIAC CATHETERIZATION Right 12/31/2014 Procedure: Left Heart Cath Possible PTCA/Stent; Surgeon: Ranulfo Cobb MD; Location: [facility] MANA[facility] OF COMPLIANCE; Service: CARDIAC CATHETERIZATION 08/11/2014 EF: 55% CARDIAC [...] IR THORACENTESIS LT 08/27/2020 Jesus Choudhary MD [facility] INTERVENTION RAD INTERVENTIONAL RADIOLOGY PROCEDURE 08/27/2020 IR THORACENTESIS RT 08/27/2020 Jesus Choudhary MD [facility] INTERVENTION RAD INTERVENTIONAL RADIOLOGY PROCEDURE 10/27/2020 IR THORACENTESIS LT 10/27/2020 Varun Kathleen MD [facility] INTERVENTION RAD INTERVENTIONAL RADIOLOGY PROCEDURE 10/27/2020 IR THORACENTESIS RT 10/27/2020 Varun Kathleen MD [facility] INTERVENTION RAD JOINT REPLACEMENT knee replacement KNEE [...] Friends and Family: Not on file Attends Orthodoxy Services: Not on file Active Member of [...] on the right. ECO Jalil Sparks MD [facility] [address], [address] [place] [address] Office: [phone] [email or web address] [employer] documented in this [id number] Miscellaneous Notes* Assessment & Plan Note - Park Hawk CNP - 01/04/2021 4:35 PM EDT Associated Problem(s): Chronic systolic congestive heart failure (HCC) Ed continues to have ongoing issues with fluid overload. He had a right thoracentesis on 1at [facility] with 550 mL removed. He has had increasing dyspnea on exertion over the past week and had a chest x- ray on 01/01/2021. He was notified today that the pleural effusions. [facility] contacted and Ed will have a [...] 2 months of placement. documented in this [id number] History of Present illness Narrative* Park Hawk CNP - 01/04/2021 4:28 PM EDT [facility] [address] [facility] [address] [facility] [id number] Assessment & Plan: Stage 4 chronic kidney disease (HCC) Ed has AV fistula constructed 12/14/2020. The wait time for beginning hemodialysis at some point after 2 months of placement. Chronic systolic congestive heart failure (HCC) Ed continues to have ongoing issues with fluid overload. He had a right thoracentesis on 12/25/2020t [facility] with 550 mL removed. He has had increasing dyspnea on exertion over the past week and had a chest x- ray on 01/01/2021. He was notified today that the pleural effusions. [facility] contacted and Ed will have a [...] office today for Follow-up (go over Xray [place] SOB/ - Booster? Dr Ramirez said not to last time he had the Moderna Restless legs per James possibly remove the AMIO Melationin did not work ) HPI: Minh Gonzalez is here today as a result of him calling the office today stating that he was notified by his tool design engineer's office that his pleural effusions were worse [...] albuminuria creatinine ratio less than 30 mg/g ([facility]) COPD, severe ([facility]) 03/2018 Coronary artery disease FSGS (focal segmental glomerulosclerosis) Hyperlipidemia Hypertension Myocardial infarction ([facility]) NYHA class 4 heart failure with reduced ejection fraction ([facility]) LVEF 30% MARCELO on CPAP 2018 Past Surgical History: Procedure Laterality Date CABG N/A 09/03/2020 Procedure: CORONARY ARTERY BYPASS GRAFT; Surgeon: Mil Dee MD; Location: [facility] [place]; Service: Cardiothoracic CARDIAC CATHETERIZATION N/A 08/11/2014 Procedure: Left Heart Cath Possible PTCA/Stent; Surgeon: Lenin Ramirez MD; Location: [facility] MANAGER OF COMPLIANCE; Service: CARDIAC CATHETERIZATION Right 12/31/2014 Procedure: Left Heart Cath Possible PTCA/Stent; Surgeon: Ranulfo Cobb MD; Location: [facility] MANA[facility] OF COMPLIANCE; Service: CARDIAC CATHETERIZATION 08/11/2014 EF: 55% CARDIAC [...] IR THORACENTESIS LT 08/27/2020 Jesus Choudhary MD [facility] INTERVENTION RAD INTERVENTIONAL RADIOLOGY PROCEDURE 08/27/2020 IR THORACENTESIS RT 08/27/2020 Jesus Choudhary MD [facility] INTERVENTION RAD INTERVENTIONAL RADIOLOGY PROCEDURE 10/27/2020 IR THORACENTESIS LT 10/27/2020 Varun Kathleen MD [facility] INTERVENTION RAD INTERVENTIONAL RADIOLOGY PROCEDURE 10/27/2020 IR THORACENTESIS RT 10/27/2020 Varun Kathleen MD [facility] INTERVENTION RAD JOINT REPLACEMENT knee replacement KNEE [...] 2 (two) times a day ONE MONTHFREE [facility] [id number] [facility] [id number] [facility] [address] [place] [id number] . ASPIRIN ORAL Take 81 mg by [...] 5' 7 27 minutes spent with patient [id number]-[id number] Follow Up Ordered: Return for Appointment as scheduled in February with DIRECTOR VOLUNTEER SERVICES in [place]. Park Hawk CNP * Demetrice Jain MA [...] patient is not nervous/anxious. documented in this [id number] Miscellaneous Notes* Assessment & Plan Note - [...] EDT Associated Problem(s): Coronary artery disease involving benton coronary artery of benton heart without angina pectoris From ischemic issue Ed is doing quite well with no recurrent angina or other associated symptoms. No changes were made in his medicines. documented in this [id number] History of Present illness Narrative* Lenin Ramirez [...] and is considering initiation of dialysis in [facility] several months. He has had no [...] 2 (two) times a day ONE MONTHFREE [facility] [id number] [facility] [id number] [facility] [address] [place] [id number] . ASCORBATE CALCIUM (VITAMIN C ORAL) Take [...] tablets . Assessment/Plan: Coronary artery disease involving benton coronary artery of benton heart without angina pectoris From ischemic issue [...] of Systems Cardiovascular: Negative. documented in this [id number] Miscellaneous Notes* Assessment & Plan Note - [...] not requiring supplemental O2 documented in this [id number] History of Present illness Narrative* Park Hawk CNP - 11/23/2020 1:49 PM EDT [facility] [address] [facility] [address] [facility] [id number] Assessment & Plan: MARCELO on CPAP Uses [...] August. His most recent procedure was in [place] on 11/11/2020. Today he states he feels [...] albuminuria creatinine ratio less than 30 mg/g ([facility]) COPD, severe ([facility]) 03/2018 Coronary artery disease FSGS (focal segmental glomerulosclerosis) Hyperlipidemia Hypertension Myocardial infarction ([facility]) NYHA class 4 heart failure with reduced ejection fraction ([facility]) LVEF 30% MARCELO on CPAP 2018 Past Surgical History: Procedure Laterality Date CABG N/A 09/03/2020 Procedure: CORONARY ARTERY BYPASS GRAFT; Surgeon: Mil Dee MD; Location: [facility] [place]; Service: Cardiothoracic CARDIAC CATHETERIZATION N/A 08/11/2014 Procedure: Left Heart Cath Possible PTCA/Stent; Surgeon: Lenin Ramirez MD; Location: [facility] MANAGER OF COMPLIANCE; Service: CARDIAC CATHETERIZATION Right 12/31/2014 Procedure: Left Heart Cath Possible PTCA/Stent; Surgeon: Ranulfo Cobb MD; Location: [facility] MANAGER OF COMPLIANCE; Service: CARDIAC CATHETERIZATION 08/11/2014 EF: 55% CARDIAC CATHETERIZATION 11/06/2006 EF: 45% CARDIAC CATHETERIZATION 08/09/2005 EF: 50% CARDIAC CATHETERIZATION 07/08/2005 EF: 45% CARDIAC CATHETERIZATION 12/31/2014 EF: 55% CORONARY ANGIOPLASTY WITH STENT PLACEMENT 08/09/2005 NORM- CX, RCA CORONARY ANGIOPLASTY WITH STENT PLACEMENT 07/08/2005 NORM- RCA CORONARY STENT PLACEMENT FOOT SURGERY Right INTERVENTIONAL RADIOLOGY PROCEDURE 08/27/2020 IR THORACENTESIS LT 08/27/2020 Jesus Choudhary MD [facility] INTERVENTION RAD INTERVENTIONAL RADIOLOGY PROCEDURE 08/27/2020 IR THORACENTESIS RT 08/27/2020 Jesus Choudhary MD [facility] INTERVENTION RAD INTERVENTIONAL RADIOLOGY PROCEDURE 10/27/2020 IR THORACENTESIS LT 10/27/2020 Varun Kathleen MD [facility] INTERVENTION RAD INTERVENTIONAL RADIOLOGY PROCEDURE 10/27/2020 IR THORACENTESIS RT 10/27/2020 Varun Kathleen MD [facility] INTERVENTION RAD JOINT REPLACEMENT knee replacement KNEE [...] 2 (two) times a day ONE MONTHFREE [facility] [id number] [facility] [id number] [facility] [address] [place] [id number] . ASPIRIN ORAL Take 81 mg by [...] 5' 7 25 minutes spent with patient [id number] Follow Up Ordered: Return for As scheduled [...] patient is not nervous/anxious. documented in this [id number] Miscellaneous Notes* Assessment & Plan Note - [...] EDT Associated Problem(s): PAF (paroxysmal atrial fibrillation) ([facility]) ECG today continues to demonstrate atrial [...] to needing supplemental O2. documented in this [id number] History of Present illness Narrative* Park Hawk CNP - 10/26/2020 8:25 AM EDT [facility] [address] [facility] [address] [facility] [address] Assessment & Plan: MARCELO on CPAP Has [...] CABG (Coronary artery bypass graft) 09/03/2020 at [facility]. He states he initially felt improved in [...] albuminuria creatinine ratio less than 30 mg/g ([facility]) COPD, severe ([facility]) 03/2018 Coronary artery disease FSGS (focal segmental glomerulosclerosis) Hyperlipidemia Hypertension Myocardial infarction ([facility]) NYHA class 4 heart failure with reduced ejection fraction ([facility]) LVEF 30% MARCELO on CPAP 2018 Past Surgical History: Procedure Laterality Date CABG N/A 09/03/2020 Procedure: CORONARY ARTERY BYPASS GRAFT; Surgeon: Mil Dee MD; Location: [facility]; Service: Cardiothoracic CARDIAC CATHETERIZATION N/A 08/11/2014 Procedure: Left Heart Cath Possible PTCA/Stent; Surgeon: Lenin Ramirez MD; Location: [facility] MANAGER OF COMPLIANCE; Service: CARDIAC CATHETERIZATION Right 12/31/2014 Procedure: Left Heart Cath Possible PTCA/Stent; Surgeon: Ranulfo Cobb MD; Location: [facility] MANAGER OF COMPLIANCE; Service: CARDIAC CATHETERIZATION 08/11/2014 EF: 55% CARDIAC CATHETERIZATION 11/06/2006 EF: 45% CARDIAC CATHETERIZATION 08/09/2005 EF: 50% CARDIAC CATHETERIZATION 07/08/2005 EF: 45% CARDIAC CATHETERIZATION 12/31/2014 EF: 55% CORONARY ANGIOPLASTY WITH STENT PLACEMENT 08/09/2005 NORM- CX, RCA CORONARY ANGIOPLASTY WITH STENT PLACEMENT 07/08/2005 NORM- RCA CORONARY STENT PLACEMENT FOOT SURGERY Right INTERVENTIONAL RADIOLOGY PROCEDURE 08/27/2020 IR THORACENTESIS LT 08/27/2020 Jesus Choudhary MD [facility] INTERVENTION RAD INTERVENTIONAL RADIOLOGY PROCEDURE 08/27/2020 IR THORACENTESIS RT 08/27/2020 Jesus Choudhary MD [facility] INTERVENTION RAD JOINT REPLACEMENT knee replacement KNEE [...] 2 (two) times a day ONE MONTHFREE [facility] [id number] [facility] [id number] [facility] 1016 [place] [id number] . ASCORBATE CALCIUM (VITAMIN C ORAL) Take [...] PVC noted. 30 minutes spent with patient [id number]-[id number]-[id number] Follow Up Ordered: Return for Appointment as [...] patient is not nervous/anxious. documented in this [id number] Instructions* Patient Instructions* Maritza Barron MA - 10/26/2020 8:00 AM EDT How to contact your Care Team: Park Hawk CNP In case of an emergency please call 911. REFILLS: When in need for refills please call your care team or the office at [phone]. Please include medication name, pharmacy name, and specify 30-day or 90-day supply. Please check with your pharmacy within 24 hours of request for your refill. You must follow up as directed to continue current refills. Thank you! documented in this [id number] History of Present illness Narrative* Mil Dee MD - 10/21/2020 8:44 AM EDT Dictation on: 10/21/2020 8:45 AM by: MIL DEE [[id number]] documented in this [id number] History of Present illness Narrative* Leonila Walls RN - 09/30/2020 9:18 AM EDT Heart Disease Management Nurse Progress Note [facility] OFFICE 09/30/20 Minh Gonzalez 1945 Congestive Heart [...] 11/25/2020). Leonila Walls RN documented in this [id number] Instructions* Patient Instructions* Leonila Walls RN - 09/30/2020 8:44 AM EDT Recommendations for home daily weights with a reminder to call with weight gain > 3 pounds, increased shortness of breath, increase in swelling, getting tired faster, urinating less frquently, dizziness or lightheadedness. Call with questions or concerns documented in this [id number] History of Present illness Narrative* Pearl Noble PA-C - 09/16/2020 9:02 AM EDT Called and discussed labs and CXR with patient Instructed to follow up as soon as possible with Swine Nutritionist He voiced understanding Had no complaints and stated wounds were healing nicely Was advised to call our office with any concerns documented in this [id number] Instructions* Patient Instructions* Leonila Walls RN - 08/03/2020 2:32 PM EDT Recommendations for home daily weights with a reminder to call with weight gain > 3 pounds, increased shortness of breath, increase in swelling, getting tired faster, urinating less frquently, dizziness or lightheadedness. Call with questions or concerns documented in this [id number] History of Present illness Narrative* Leonila Walls RN - 08/03/2020 2:11 PM EDT Heart Disease Management Nurse Progress Note [facility] OFFICE 08/03/20 Minh Gonzalez 1945 Congestive Heart [...] file. Leonila Walls RN [facility]Evaluation [facility]* Diagnosis Shortness of breath- Primary Chronic [...] heart failure (HCC) Coronary artery disease involving benton coronary artery of benton heart without angina pectoris Essential hypertension Unspecified [...] failure (HCC)- Primary Coronary artery disease involving benton coronary artery of benton heart without angina pectoris Dyspnea on exertion Other dyspnea and respiratory abnormality Generalized weakness [facility] Diagnosis Coronary artery disease involving benton coronary artery of benton heart without angina pectoris- Primary Chronic systolic [...] of ascending colon Coronary artery disease involving benton coronary artery of benton heart without angina pectoris S/P CABG (coronary [...] [facility]* Diagnosis Coronary artery disease involving benton coronary artery of benton heart without angina pectoris- Primary Chronic systolic [...] organism, unspecified whether acute organ dysfunction present ([facility]) [facility] Diagnosis Coronary artery disease involving benton coronary artery of benton heart without angina pectoris Chronic systolic congestive heart failure (HCC) Mixed hyperlipidemia PAF (paroxysmal atrial fibrillation) (HCC) Atrial fibrillation [facility] Diagnosis Elevated CEA- Primary Elevated carcinoembryonic antigen (CEA) Malignant neoplasm of ascending colon (HCC) Malignant neoplasm of ascending colon Cellulitis of right buttock documented in this encounter [facility] course Narrative No data available for this section [facility] Patient's home Plan of care note* Visit Details Visit Type -SN HH Routine Vi sit Discipline -[facility] Problems Problem Start Date Status Goals Interventions Wound Care and/or Skin Problems Disciplines: [facility] 01/20/2021 Active 1 goal linked to scheduled/documented intervention 1 goal intervention scheduled/documented in this visit Assess and Instruct Home Visit Disciplines: [facility] 01/20/2021 Active 1 goal linked to scheduled/documented intervention 4 goal interventions scheduled/documented in this visit Medication Management Disciplines: [facility] 01/20/2021 Active 1 goal linked to scheduled/documented intervention 1 goal intervention scheduled/documented in this visit Pain Management Disciplines: [facility] 01/20/2021 Active 1 goal linked to scheduled/documented [...] [facility]al:[facility] Visit Details Visit Type -SN HH Routine Vi sit Discipline -[facility] Problems Problem Start Date Status Goals Interventions Wound Care and/or Skin Problems Disciplines: [facility] 01/20/2021 Active 1 goal linked to scheduled/documented intervention 1 goal intervention scheduled/documented in this visit Assess and Instruct Home Visit Disciplines: [facility] 01/20/2021 Active 1 goal linked to scheduled/documented intervention 4 goal interventions scheduled/documented in this visit Medication Management Disciplines: [facility] 01/20/2021 Active 1 goal linked to scheduled/documented intervention 1 goal intervention scheduled/documented in this visit Pain Management Disciplines: [facility] 01/20/2021 Active 1 goal linked to scheduled/documented [...] of care note* Visit Details Visit Type -[facility] Discipline -[facility] Problems Problem Start Date Status Goals Interventions Assess and Instruct Home Visit Disciplines: [facility] 01/20/2021 Active 1 goal linked to scheduled/documented intervention 4 goal interventions scheduled/documented in this visit Medication Management Disciplines: [facility] 01/20/2021 Active 1 goal linked to scheduled/documented intervention 1 goal intervention scheduled/documented in this visit Pain Management Disciplines: [facility] 01/20/2021 Active 1 goal linked to scheduled/documented [...] of care note* Visit Details Visit Type -[facility] Star t of Care Discipline -[facility] Problems Problem Start Date Status Goals Interventions Assess and Instruct Home Visit Disciplines: [facility] 01/20/2021 Active 1 goal linked to scheduled/documented intervention 4 goal interventions scheduled/documented in this visit Medication Management Disciplines: [facility] 01/20/2021 Active 1 goal linked to scheduled/documented intervention 1 goal intervention scheduled/documented in this visit Pain Management Disciplines: [facility] 01/20/2021 Active 1 goal linked to scheduled/documented [...] Type -SN HH Routine Vi sit Discipline -[facility] Problems Problem Start Date Status Goals Interventions Wound Care and/or Skin Problems Disciplines: [facility] 01/20/2021 Active 1 goal linked to scheduled/documented intervention 1 goal intervention scheduled/documented in this visit Assess and Instruct Home Visit Disciplines: [facility] 01/20/2021 Active 1 goal linked to scheduled/documented intervention 4 goal interventions scheduled/documented in this visit Medication Management Disciplines: [facility] 01/20/2021 Active 1 goal linked to scheduled/documented intervention 1 goal intervention scheduled/documented in this visit Pain Management Disciplines: [facility] 01/20/2021 Active 1 goal linked to scheduled/documented [...] Management Goal:Pain Completed documented in this encounter [facility] home Plan of care note* Visit Details Visit Type -[facility] Routine Vi sit Discipline -[facility] Problems Problem Start Date Status Goals Interventions Wound Care and/or Skin Problems Disciplines: [facility] 01/20/2021 Active 1 goal linked to scheduled/documented intervention 1 goal intervention scheduled/documented in this visit Assess and Instruct Home Visit Disciplines: [facility] 01/20/2021 Active 1 goal linked to scheduled/documented intervention 4 goal interventions scheduled/documented in this visit Medication Management Disciplines: [facility] 01/20/2021 Active 1 goal linked to scheduled/documented intervention 1 goal intervention scheduled/documented in this visit Pain Management Disciplines: [facility] 01/20/2021 Active 1 goal linked to scheduled/documented [...] Management Goal:Pain Completed documented in this encounter [facility]'s home Plan of care note* Visit Details Visit Type -[facility] Routine Vi sit Discipline -[facility] Problems Problem Start Date Status Goals Interventions Wound Care and/or Skin Problems Disciplines: [facility] 01/20/2021 Active 1 goal linked to scheduled/documented intervention 1 goal intervention scheduled/documented in this visit Assess and Instruct Home Visit Disciplines: [facility] 01/20/2021 Active 1 goal linked to scheduled/documented intervention 4 goal interventions scheduled/documented in this visit Medication Management Disciplines: [facility] 01/20/2021 Active 1 goal linked to scheduled/documented intervention 1 goal intervention scheduled/documented in this visit Pain Management Disciplines: [facility] 01/20/2021 Active 1 goal linked to scheduled/documented [...] Management Goal:[facility] Visit Details Visit Type -[facility] Routine Vi sit Discipline -[facility] Problems Problem Start Date Status Goals Interventions Wound Care and/or Skin Problems Disciplines: [facility] 01/20/2021 Active 1 goal linked to scheduled/documented intervention 1 goal intervention scheduled/documented in this visit Assess and Instruct Home Visit Disciplines: [facility] 01/20/2021 Active 1 goal linked to scheduled/documented intervention 4 goal interventions scheduled/documented in this visit Medication Management Disciplines: [facility] 01/20/2021 Active 1 goal linked to scheduled/documented intervention 1 goal intervention scheduled/documented in this visit Pain Management Disciplines: [facility] 01/20/2021 Active 1 goal linked to scheduled/documented [...] Management Goal:[facility] Visit Details Visit Type -[facility] Star t of Care Discipline -[facility] Problems Problem Start Date Status Goals Interventions Assess and Instruct Home Visit Disciplines: [facility] 01/20/2021 Active 1 goal linked to scheduled/documented intervention 4 goal interventions scheduled/documented in this visit Medication Management Disciplines: [facility] 01/20/2021 Active 1 goal linked to scheduled/documented intervention 1 goal intervention scheduled/documented in this visit Pain Management Disciplines: [facility] 01/20/2021 Active 1 goal linked to scheduled/documented [...] Management Goal:Pain Scheduled [facility] Visit Details Visit Type -SN HH Routine Vi sit Discipline -[facility] Problems Problem Start Date Status Goals Interventions Wound Care and/or Skin Problems Disciplines: [facility] 01/20/2021 Active 1 goal linked to scheduled/documented intervention 1 goal intervention scheduled/documented in this visit Assess and Instruct Home Visit Disciplines: [facility] 01/20/2021 Active 1 goal linked to scheduled/documented intervention 4 goal interventions scheduled/documented in this visit Medication Management Disciplines: [facility] 01/20/2021 Active 1 goal linked to scheduled/documented intervention 1 goal intervention scheduled/documented in this visit Pain Management Disciplines: [facility] 01/20/2021 Active 1 goal linked to scheduled/documented [...] Management Goal:Pain Completed documented in this encounter [facility]'s home Plan of care note* Visit Details Visit Type -SN HH Routine Vi sit Discipline -[facility] Problems Problem Start Date Status Goals Interventions Assess and Instruct Home Visit Disciplines: [facility] 01/20/2021 Active 1 goal linked to scheduled/documented intervention 4 goal interventions scheduled/documented in this visit Medication Management Disciplines: [facility] 01/20/2021 Active 1 goal linked to scheduled/documented intervention 1 goal intervention scheduled/documented in this visit Pain Management Disciplines: [facility] 01/20/2021 Active 1 goal linked to scheduled/documented [...] Management [facility]al:[facility] Visit Details Visit Type -SN HH Routine Vi sit Discipline -[facility] Problems Problem Start Date Status Goals Interventions Wound Care and/or Skin Problems Disciplines: [facility] 01/20/2021 Active 1 goal linked to scheduled/documented intervention 1 goal intervention scheduled/documented in this visit Assess and Instruct Home Visit Disciplines: [facility] 01/20/2021 Active 1 goal linked to scheduled/documented intervention 4 goal interventions scheduled/documented in this visit Medication Management Disciplines: [facility] 01/20/2021 Active 1 goal linked to scheduled/documented intervention 1 goal intervention scheduled/documented in this visit Pain Management Disciplines: [facility] 01/20/2021 Active 1 goal linked to scheduled/documented [...] Management Goal:Pain Com[facility] Visit Details Visit Type -[facility] Routine Vi sit Discipline -[facility] Problems Problem Start Date Status Goals Interventions Wound Care and/or Skin Problems Disciplines: [facility] 01/20/2021 Active 1 goal linked to scheduled/documented intervention 1 goal intervention scheduled/documented in this visit Assess and Instruct Home Visit Disciplines: [facility] 01/20/2021 Active 1 goal linked to scheduled/documented intervention 4 goal interventions scheduled/documented in this visit Medication Management Disciplines: [facility] 01/20/2021 Active 1 goal linked to scheduled/documented intervention 1 goal intervention scheduled/documented in this visit Pain Management Disciplines: [facility] 01/20/2021 Active 1 goal linked to scheduled/documented [...] Management Goal:Pain Com[facility] Visit Details Visit Type -[facility] Routine Vi sit Discipline -[facility] Problems Problem Start Date Status Goals Interventions Wound Care and/or Skin Problems Disciplines: [facility] 01/20/2021 Active 1 goal linked to scheduled/documented intervention 1 goal intervention scheduled/documented in this visit Assess and Instruct Home Visit Disciplines: [facility] 01/20/2021 Active 1 goal linked to scheduled/documented intervention 4 goal interventions scheduled/documented in this visit Medication Management Disciplines: [facility] 01/20/2021 Active 1 goal linked to scheduled/documented intervention 1 goal intervention scheduled/documented in this visit Pain Management Disciplines: [facility] 01/20/2021 Active 1 goal linked to scheduled/documented [...] Management Goal:Pain Com[facility] Visit Details Visit Type -SN HH Routine Vi sit Discipline -[facility] Problems Problem Start Date Status Goals Interventions Wound Care and/or Skin Problems Disciplines: [facility] 01/20/2021 Active 1 goal linked to scheduled/documented intervention 1 goal intervention scheduled/documented in this visit Assess and Instruct Home Visit Disciplines: [facility] 01/20/2021 Active 1 goal linked to scheduled/documented intervention 4 goal interventions scheduled/documented in this visit Medication Management Disciplines: [facility] 01/20/2021 Active 1 goal linked to scheduled/documented intervention 1 goal intervention scheduled/documented in this visit Pain Management Disciplines: [facility] 01/20/2021 Active 1 goal linked to scheduled/documented [...] Type -SN HH Routine Vi sit Discipline -[facility] Problems Problem Start Date Status Goals Interventions Wound Care and/or Skin Problems Disciplines: [facility] 01/20/2021 Active 1 goal linked to scheduled/documented intervention 1 goal intervention scheduled/documented in this visit Assess and Instruct Home Visit Disciplines: [facility] 01/20/2021 Active 1 goal linked to scheduled/documented intervention 4 goal interventions scheduled/documented in this visit Medication Management Disciplines: [facility] 01/20/2021 Active 1 goal linked to scheduled/documented intervention 1 goal intervention scheduled/documented in this visit Pain Management Disciplines: [facility] 01/20/2021 Active 1 goal linked to scheduled/documented [...] Type -SN HH Routine Vi sit Discipline -[facility] Problems Problem Start Date Status Goals Interventions Wound Care and/or Skin Problems Disciplines: [facility] 01/20/2021 Active 1 goal linked to scheduled/documented intervention 1 goal intervention scheduled/documented in this visit Assess and Instruct Home Visit Disciplines: [facility] 01/20/2021 Active 1 goal linked to scheduled/documented intervention 4 goal interventions scheduled/documented in this visit Medication Management Disciplines: [facility] 01/20/2021 Active 1 goal linked to scheduled/documented intervention 1 goal intervention scheduled/documented in this visit Pain Management Disciplines: [facility] 01/20/2021 Active 1 goal linked to scheduled/documented [...] Management Goal:Pain Com[facility] Visit Details Visit Type -SN HH Routine Vi sit Discipline -[facility] Problems Problem Start Date Status Goals Interventions Assess and Instruct Home Visit Disciplines: [facility] 01/20/2021 Active 1 goal linked to scheduled/documented intervention 4 goal interventions scheduled/documented in this visit Medication Management Disciplines: [facility] 01/20/2021 Active 1 goal linked to scheduled/documented intervention 1 goal intervention scheduled/documented in this visit Pain Management Disciplines: [facility] 01/20/2021 Active 1 goal linked to scheduled/documented [...] Type -SN HH OASIS Rece rt Discipline -[facility] Problems Problem Start Date Status Goals Interventions Wound Care and/or Skin Problems Disciplines: [facility] 01/20/2021 Active 1 goal linked to scheduled/documented intervention 1 goal intervention scheduled/documented in this visit Assess and Instruct Home Visit Disciplines: [facility] 01/20/2021 Active 1 goal linked to scheduled/documented intervention 4 goal interventions scheduled/documented in this visit Medication Management Disciplines: [facility] 01/20/2021 Active 1 goal linked to scheduled/documented intervention 1 goal intervention scheduled/documented in this visit Pain Management Disciplines: [facility] 01/20/2021 Active 1 goal linked to scheduled/documented [...] Management Goal:Pain Completed [facility] Visit Details Visit Type -SN Missed Visit Discipline -[facility] Problems Problem Start Date Status Goals Interventions Assess and Instruct Home Visit Disciplines: [facility] 01/20/2021 Active 1 goal linked to scheduled/documented intervention 4 goal interventions scheduled/documented in this visit Medication Management Disciplines: [facility] 01/20/2021 Active 1 goal linked to scheduled/documented intervention 1 goal intervention scheduled/documented in this visit Pain Management Disciplines: [facility] 01/20/2021 Active 1 goal linked to scheduled/documented [...] Management Goal:Pain [facility]uled [facility] Visit Details Visit Type -SN HH Routine Vi sit Discipline -[facility] Problems Problem Start Date Status Goals Interventions Wound Care and/or Skin Problems Disciplines: [facility] 01/20/2021 Active 1 goal linked to scheduled/documented intervention 1 goal intervention scheduled/documented in this visit Assess and Instruct Home Visit Disciplines: [facility] 01/20/2021 Active 1 goal linked to scheduled/documented intervention 4 goal interventions scheduled/documented in this visit Medication Management Disciplines: [facility] 01/20/2021 Active 1 goal linked to scheduled/documented intervention 1 goal intervention scheduled/documented in this visit Pain Management Disciplines: [facility] 01/20/2021 Active 1 goal linked to scheduled/documented [...] Management Goal:Pain Com[facility] Visit Details Visit Type -SN HH OASIS Rece rt Discipline -[facility] Problems Problem Start Date Status Goals Interventions Wound Care and/or Skin Problems Disciplines: [facility] 01/20/2021 Active 1 goal linked to scheduled/documented intervention 1 goal intervention scheduled/documented in this visit Assess and Instruct Home Visit Disciplines: [facility] 01/20/2021 Active 1 goal linked to scheduled/documented intervention 4 goal interventions scheduled/documented in this visit Medication Management Disciplines: [facility] 01/20/2021 Active 1 goal linked to scheduled/documented intervention 1 goal intervention scheduled/documented in this visit Pain Management Disciplines: [facility] 01/20/2021 Active 1 goal linked to scheduled/documented [...] Management Goal:Pain Completed [facility] Visit Details Visit Type -SN HH Routine Vi sit Discipline -[facility] Problems Problem Start Date Status Goals Interventions Wound Care and/or Skin Problems Disciplines: [facility] 01/20/2021 Active 1 goal linked to scheduled/documented intervention 1 goal intervention scheduled/documented in this visit Assess and Instruct Home Visit Disciplines: [facility] 01/20/2021 Active 1 goal linked to scheduled/documented intervention 4 goal interventions scheduled/documented in this visit Medication Management Disciplines: [facility] 01/20/2021 Active 1 goal linked to scheduled/documented intervention 1 goal intervention scheduled/documented in this visit Pain Management Disciplines: [facility] 01/20/2021 Active 1 goal linked to scheduled/documented [...] Type -SN HH Routine Vi sit Discipline -[facility] Problems Problem Start Date Status Goals Interventions Wound Care and/or Skin Problems Disciplines: [facility] 01/20/2021 Active 1 goal linked to scheduled/documented intervention 1 goal intervention scheduled/documented in this visit Assess and Instruct Home Visit Disciplines: [facility] 01/20/2021 Active 1 goal linked to scheduled/documented intervention 4 goal interventions scheduled/documented in this visit Medication Management Disciplines: [facility] 01/20/2021 Active 1 goal linked to scheduled/documented intervention 1 goal intervention scheduled/documented in this visit Pain Management Disciplines: [facility] 01/20/2021 Active 1 goal linked to scheduled/documented [...] Management Goal:Pain Com[facility] Visit Details Visit Type -SN Missed Visit Discipline -[facility] Problems Problem Start Date Status Goals Interventions Assess and Instruct Home Visit Disciplines: [facility] 01/20/2021 Active 1 goal linked to scheduled/documented intervention 4 goal interventions scheduled/documented in this visit Medication Management Disciplines: [facility] 01/20/2021 Active 1 goal linked to scheduled/documented intervention 1 goal intervention scheduled/documented in this visit Pain Management Disciplines: [facility] 01/20/2021 Active 1 goal linked to scheduled/documented [...] Management Goal:Pain Scheduled [facility] Visit Details Visit Type -SN HH Routine Vi sit Discipline -[facility] Problems Problem Start Date Status Goals Interventions Wound Care and/or Skin Problems Disciplines: [facility] 01/20/2021 Active 1 goal linked to scheduled/documented intervention 1 goal intervention scheduled/documented in this visit Assess and Instruct Home Visit Disciplines: [facility] 01/20/2021 Active 1 goal linked to scheduled/documented intervention 4 goal interventions scheduled/documented in this visit Medication Management Disciplines: [facility] 01/20/2021 Active 1 goal linked to scheduled/documented intervention 1 goal intervention scheduled/documented in this visit Pain Management Disciplines: [facility] 01/20/2021 Active 1 goal linked to scheduled/documented [...] Management Goal:Pain Com[facility] Visit Details Visit Type -SN HH Routine Vi sit Discipline -[facility] Problems Problem Start Date Status Goals Interventions Wound Care and/or Skin Problems Disciplines: [facility] 01/20/2021 Active 1 goal linked to scheduled/documented intervention 1 goal intervention scheduled/documented in this visit Assess and Instruct Home Visit Disciplines: [facility] 01/20/2021 Active 1 goal linked to scheduled/documented intervention 4 goal interventions scheduled/documented in this visit Medication Management Disciplines: [facility] 01/20/2021 Active 1 goal linked to scheduled/documented intervention 1 goal intervention scheduled/documented in this visit Pain Management Disciplines: [facility] 01/20/2021 Active 1 goal linked to scheduled/documented [...] Management Goal:[facility] Visit Details Visit Type -SN HH OASIS Rece rt Discipline -[facility] Problems Problem Start Date Status Goals Interventions Wound Care and/or Skin Problems Disciplines: [facility] 01/20/2021 Active 1 goal linked to scheduled/documented intervention 1 goal intervention scheduled/documented in this visit Assess and Instruct Home Visit Disciplines: [facility] 01/20/2021 Active 1 goal linked to scheduled/documented intervention 4 goal interventions scheduled/documented in this visit Medication Management Disciplines: [facility] 01/20/2021 Active 1 goal linked to scheduled/documented intervention 1 goal intervention scheduled/documented in this visit Pain Management Disciplines: [facility] 01/20/2021 Active 1 goal linked to scheduled/documented [...] Management Goal:Pain Com[facility] Visit Details Visit Type -SN HH OASIS Rece rt Discipline -[facility] Problems Problem Start Date Status Goals Interventions Wound Care and/or Skin Problems Disciplines: [facility] 01/20/2021 Active 1 goal linked to scheduled/documented intervention 1 goal intervention scheduled/documented in this visit Assess and Instruct Home Visit Disciplines: [facility] 01/20/2021 Active 1 goal linked to scheduled/documented intervention 4 goal interventions scheduled/documented in this visit Medication Management Disciplines: [facility] 01/20/2021 Active 1 goal linked to scheduled/documented intervention 1 goal intervention scheduled/documented in this visit Pain Management Disciplines: [facility] 01/20/2021 Active 1 goal linked to scheduled/documented [...] Management Goal:Pain Completed [facility] Visit Details Visit Type -SN HH Routine Vi sit Discipline -[facility] Problems Problem Start Date Status Goals Interventions Wound Care and/or Skin Problems Disciplines: [facility] 01/20/2021 Active 1 goal linked to scheduled/documented intervention 1 goal intervention scheduled/documented in this visit Assess and Instruct Home Visit Disciplines: [facility] 01/20/2021 Active 1 goal linked to scheduled/documented intervention 4 goal interventions scheduled/documented in this visit Medication Management Disciplines: [facility] 01/20/2021 Active 1 goal linked to scheduled/documented intervention 1 goal intervention scheduled/documented in this visit Pain Management Disciplines: [facility] 01/20/2021 Active 1 goal linked to scheduled/documented [...] Management Goal:Pain Com[facility] Visit Details Visit Type -SN HH Routine Vi sit Discipline -[facility] Problems Problem Start Date Status Goals Interventions Wound Care and/or Skin Problems Disciplines: [facility] 01/20/2021 Active 1 goal linked to scheduled/documented intervention 1 goal intervention scheduled/documented in this visit Assess and Instruct Home Visit Disciplines: [facility] 01/20/2021 Active 1 goal linked to scheduled/documented intervention 4 goal interventions scheduled/documented in this visit Medication Management Disciplines: [facility] 01/20/2021 Active 1 goal linked to scheduled/documented intervention 1 goal intervention scheduled/documented in this visit Pain Management Disciplines: [facility] 01/20/2021 Active 1 goal linked to scheduled/documented [...] Management Goal:Pain Completed [facility] Visit Details Visit Type -SN HH Routine Vi sit Discipline -[facility] Problems Problem Start Date Status Goals Interventions Wound Care and/or Skin Problems Disciplines: [facility] 01/20/2021 Active 1 goal linked to scheduled/documented intervention 1 goal intervention scheduled/documented in this visit Assess and Instruct Home Visit Disciplines: [facility] 01/20/2021 Active 1 goal linked to scheduled/documented intervention 4 goal interventions scheduled/documented in this visit Medication Management Disciplines: [facility] 01/20/2021 Active 1 goal linked to scheduled/documented intervention 1 goal intervention scheduled/documented in this visit Pain Management Disciplines: [facility] 01/20/2021 Active 1 goal linked to scheduled/documented [...] Management Goal:Pain Completed [facility] Visit Details Visit Type -SN HH Routine Vi sit Discipline -[facility] Problems Problem Start Date Status Goals Interventions Wound Care and/or Skin Problems Disciplines: [facility] 01/20/2021 Active 1 goal linked to scheduled/documented intervention 1 goal intervention scheduled/documented in this visit Assess and Instruct Home Visit Disciplines: [facility] 01/20/2021 Active 1 goal linked to scheduled/documented intervention 4 goal interventions scheduled/documented in this visit Medication Management Disciplines: [facility] 01/20/2021 Active 1 goal linked to scheduled/documented intervention 1 goal intervention scheduled/documented in this visit Pain Management Disciplines: [facility] 01/20/2021 Active 1 goal linked to scheduled/documented [...] Management Goal:Pain Completed [facility] Visit Details Visit Type -SN HH Routine Vi sit Discipline -[facility] Problems Problem Start Date Status Goals Interventions Wound Care and/or Skin Problems Disciplines: [facility] 01/20/2021 Active 1 goal linked to scheduled/documented intervention 1 goal intervention scheduled/documented in this visit Assess and Instruct Home Visit Disciplines: [facility] 01/20/2021 Active 1 goal linked to scheduled/documented intervention 4 goal interventions scheduled/documented in this visit Medication Management Disciplines: [facility] 01/20/2021 Active 1 goal linked to scheduled/documented intervention 1 goal intervention scheduled/documented in this visit Pain Management Disciplines: [facility] 01/20/2021 Active 1 goal linked to scheduled/documented [...] Management Goal:Pain Completed [facility] Visit Details Visit Type -SN HH Routine Vi sit Discipline -[facility] Problems Problem Start Date Status Goals Interventions Wound Care and/or Skin Problems Disciplines: [facility] 01/20/2021 Active 1 goal linked to scheduled/documented intervention 1 goal intervention scheduled/documented in this visit Assess and Instruct Home Visit Disciplines: [facility] 01/20/2021 Active 1 goal linked to scheduled/documented intervention 4 goal interventions scheduled/documented in this visit Medication Management Disciplines: [facility] 01/20/2021 Active 1 goal linked to scheduled/documented intervention 1 goal intervention scheduled/documented in this visit Pain Management Disciplines: [facility] 01/20/2021 Active 1 goal linked to scheduled/documented [...] Management Goal:Pain Completed [facility] Visit Details Visit Type -SN HH Routine Vi sit Discipline -[facility] Problems Problem Start Date Status Goals Interventions Wound Care and/or Skin Problems Disciplines: [facility] 01/20/2021 Active 1 goal linked to scheduled/documented intervention 1 goal intervention scheduled/documented in this visit Assess and Instruct Home Visit Disciplines: [facility] 01/20/2021 Active 1 goal linked to scheduled/documented intervention 4 goal interventions scheduled/documented in this visit Medication Management Disciplines: [facility] 01/20/2021 Active 1 goal linked to scheduled/documented intervention 1 goal intervention scheduled/documented in this visit Pain Management Disciplines: [facility] 01/20/2021 Active 1 goal linked to scheduled/documented [...] Management Goal:Pain Completed [facility] Visit Details Visit Type -SN HH OASIS Guerrero sfer Discipline -[facility] Problems Problem Start Date Status Goals Interventions Assess and Instruct Home Visit Disciplines: [facility] 01/20/2021 Active 1 goal linked to scheduled/documented intervention 4 goal interventions scheduled/documented in this visit Medication Management Disciplines: [facility] 01/20/2021 Active 1 goal linked to scheduled/documented intervention 1 goal intervention scheduled/documented in this visit Pain Management Disciplines: [facility] 01/20/2021 Active 1 goal linked to scheduled/documented [...] HH OASIS Resu mption of Care Discipline -[facility] Problems Problem Start Date Status Goals Interventions Wound Care and/or Skin Problems Disciplines: [facility] 01/20/2021 Active 1 goal linked to scheduled/documented intervention 1 goal intervention scheduled/documented in this visit Assess and Instruct Home Visit Disciplines: [facility] 01/20/2021 Active 1 goal linked to scheduled/documented intervention 4 goal interventions scheduled/documented in this visit Medication Management Disciplines: [facility] 01/20/2021 Active 1 goal linked to scheduled/documented intervention 1 goal intervention scheduled/documented in this visit Pain Management Disciplines: [facility] 01/20/2021 Active 1 goal linked to scheduled/documented [...] Management Goal:Pain Completed [facility] Visit Details Visit Type -SN HH OASIS Resu mption of Care Discipline -[facility] Problems Problem Start Date Status Goals Interventions Wound Care and/or Skin Problems Disciplines: [facility] 01/20/2021 Active 1 goal linked to scheduled/documented intervention 1 goal intervention scheduled/documented in this visit Assess and Instruct Home Visit Disciplines: [facility] 01/20/2021 Active 1 goal linked to scheduled/documented intervention 4 goal interventions scheduled/documented in this visit Medication Management Disciplines: [facility] 01/20/2021 Active 1 goal linked to scheduled/documented intervention 1 goal intervention scheduled/documented in this visit Pain Management Disciplines: [facility] 01/20/2021 Active 1 goal linked to scheduled/documented [...] Management Goal:Pain Completed [facility] Visit Details Visit Type -SN HH Routine Vi sit Discipline -[facility] Problems Problem Start Date Status Goals Interventions Wound Care and/or Skin Problems Disciplines: [facility] 01/20/2021 Active 1 goal linked to scheduled/documented intervention 1 goal intervention scheduled/documented in this visit Assess and Instruct Home Visit Disciplines: [facility] 01/20/2021 Active 1 goal linked to scheduled/documented intervention 4 goal interventions scheduled/documented in this visit Medication Management Disciplines: [facility] 01/20/2021 Active 1 goal linked to scheduled/documented intervention 1 goal intervention scheduled/documented in this visit Pain Management Disciplines: [facility] 01/20/2021 Active 1 goal linked to scheduled/documented [...] Management Goal:Pain Completed [facility] Visit Details Visit Type -SN HH OASIS Rece rt Discipline -[facility] Problems Problem Start Date Status Goals Interventions Assess and Instruct Home Visit Disciplines: [facility] 01/20/2021 Active 1 goal linked to scheduled/documented intervention 4 goal interventions scheduled/documented in this visit Medication Management Disciplines: [facility] 01/20/2021 Active 1 goal linked to scheduled/documented intervention 1 goal intervention scheduled/documented in this visit Pain Management Disciplines: [facility] 01/20/2021 Active 1 goal linked to scheduled/documented [...] Management Goal:Pain Scheduled [facility] Visit Details Visit Type -SN HH OASIS Rece rt Discipline -[facility] Problems Problem Start Date Status Goals Interventions Assess and Instruct Home Visit Disciplines: [facility] 01/20/2021 Active 1 goal linked to scheduled/documented intervention 4 goal interventions scheduled/documented in this visit Medication Management Disciplines: [facility] 01/20/2021 Active 1 goal linked to scheduled/documented intervention 1 goal intervention scheduled/documented in this visit Pain Management Disciplines: [facility] 01/20/2021 Active 1 goal linked to scheduled/documented [...] Management Goal:Pain Scheduled [facility] Visit Details Visit Type -SN HH OASIS Resu mption of Care Discipline -[facility] Problems Problem Start Date Status Goals Interventions Wound Care and/or Skin Problems Disciplines: [facility] 01/20/2021 Active 1 goal linked to scheduled/documented intervention 1 goal intervention scheduled/documented in this visit Assess and Instruct Home Visit Disciplines: [facility] 01/20/2021 Active 1 goal linked to scheduled/documented intervention 4 goal interventions scheduled/documented in this visit Medication Management Disciplines: [facility] 01/20/2021 Active 1 goal linked to scheduled/documented intervention 1 goal intervention scheduled/documented in this visit Pain Management Disciplines: [facility] 01/20/2021 Active 1 goal linked to scheduled/documented [...] Management Goal:Pain Completed [facility] Visit Details Visit Type -SN HH Routine Vi sit Discipline -[facility] Problems Problem Start Date Status Goals Interventions Wound Care and/or Skin Problems Disciplines: [facility] 01/20/2021 Active 1 goal linked to scheduled/documented intervention 1 goal intervention scheduled/documented in this visit Assess and Instruct Home Visit Disciplines: [facility] 01/20/2021 Active 1 goal linked to scheduled/documented intervention 4 goal interventions scheduled/documented in this visit Medication Management Disciplines: [facility] 01/20/2021 Active 1 goal linked to scheduled/documented intervention 1 goal intervention scheduled/documented in this visit Pain Management Disciplines: [facility] 01/20/2021 Active 1 goal linked to scheduled/documented [...] Management Goal:Pain Completed [facility] Visit Details Visit Type - HH Routine Vi sit Discipline -[facility] Problems Problem Start Date Status Goals Interventions Wound Care and/or Skin Problems Disciplines: [facility] 01/20/2021 Active 1 goal linked to scheduled/documented intervention 1 goal intervention scheduled/documented in this visit Assess and Instruct Home Visit Disciplines: [facility] 01/20/2021 Active 1 goal linked to scheduled/documented intervention 4 goal interventions scheduled/documented in this visit Medication Management Disciplines: [facility] 01/20/2021 Active 1 goal linked to scheduled/documented intervention 1 goal intervention scheduled/documented in this visit Pain Management Disciplines: [facility] 01/20/2021 Active 1 goal linked to scheduled/documented [...] Management Goal:Pain Completed [facility] Visit Details Visit Type -SN HH Routine Vi sit Discipline -[facility] Problems Problem Start Date Status Goals Interventions Wound Care and/or Skin Problems Disciplines: [facility] 01/20/2021 Active 1 goal linked to scheduled/documented intervention 1 goal intervention scheduled/documented in this visit Assess and Instruct Home Visit Disciplines: [facility] 01/20/2021 Active 1 goal linked to scheduled/documented intervention 4 goal interventions scheduled/documented in this visit Medication Management Disciplines: [facility] 01/20/2021 Active 1 goal linked to scheduled/documented intervention 1 goal intervention scheduled/documented in this visit Pain Management Disciplines: [facility] 01/20/2021 Active 1 goal linked to scheduled/documented [...] Management Goal:Pain Completed [facility] Visit Details Visit Type -SN HH Routine Vi sit Discipline -[facility] Problems Problem Start Date Status Goals Interventions Assess and Instruct Home Visit Disciplines: [facility] 01/20/2021 Active 1 goal linked to scheduled/documented intervention 4 goal interventions scheduled/documented in this visit Medication Management Disciplines: [facility] 01/20/2021 Active 1 goal linked to scheduled/documented intervention 1 goal intervention scheduled/documented in this visit Pain Management Disciplines: [facility] 01/20/2021 Active 1 goal linked to scheduled/documented [...] Management Goal:Pain Completed [facility] Visit Details Visit Type -SN HH Routine Vi sit Discipline -[facility] Problems Problem Start Date Status Goals Interventions Assess and Instruct Home Visit Disciplines: [facility] 01/20/2021 Active 1 goal linked to scheduled/documented intervention 4 goal interventions scheduled/documented in this visit Medication Management Disciplines: [facility] 01/20/2021 Active 1 goal linked to scheduled/documented intervention 1 goal intervention scheduled/documented in this visit Pain Management Disciplines: [facility] 01/20/2021 Active 1 goal linked to scheduled/documented [...] Management Goal:Pain Completed [facility] Visit Details Visit Type -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 Routine Visi t Discipline -Physical Therapy Problems [...] 95% of instruction. [facility] Visit Details Visit Type -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 Routine Visi t Discipline -Physical Therapy Problems [...] 95% of instruction. [facility] Visit Details Visit Type -SN HH Non-OASIS/ Discipline DC Discipline -[facility] Problems Problem Start Date Status Goals Interventions Assess and Instruct Home Visit Disciplines: [facility] 01/20/2021 Resolved on 09/07/2021 1 goal linked to scheduled/documented intervention 4 goal interventions scheduled/documented in this visit Medication Management Disciplines: [facility] 01/20/2021 Resolved on 09/07/2021 1 goal linked to scheduled/documented intervention 1 goal intervention scheduled/documented in this visit Pain Management Disciplines: [facility] 01/20/2021 Resolved on 09/07/2021 1 goal linked [...] Management Goal:Pain Scheduled [facility] Visit Details Visit Type -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 Routine Visi t Discipline -Physical Therapy Problems [...] 90% of instruction. [facility] Visit Details Visit Type -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 Routine Visi t Discipline -Physical Therapy Problems [...] 90% of instruction. documented in this encounter [facility] Plan of care note* Visit Details Visit Type -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 Routine Visi t Discipline -Physical Therapy Problems [...] HH OASIS Star t of Care Discipline -[facility] Problems Problem Start Date Status Goals Interventions Assess and Instruct Home Visit Disciplines: [facility] 05/01/2022 Active 1 goal linked to scheduled/documented intervention 4 goal interventions scheduled/documented in this visit Medication Management Disciplines: [facility] 05/01/2022 Active 1 goal linked to scheduled/documented intervention 1 goal intervention scheduled/documented in this visit Pain Management Disciplines: [facility] 05/01/2022 Active 1 goal linked to scheduled/documented intervention 1 goal intervention scheduled/documented in this visit Wound Care and/or Skin Problems Disciplines: [facility] 05/01/2022 Active 1 goal linked to scheduled/documented intervention 1 goal intervention scheduled/documented in this visit Cardiac Disciplines: [facility] 05/01/2022 Active 2 goals linked to scheduled/documented interventions 2 goal interventions scheduled/documented in this visit Gastrointestinal Disciplines: [facility] 05/01/2022 Active 1 goal linked to scheduled/documented intervention 1 goal intervention scheduled/documented in this visit Respiratory Disciplines: [facility] 05/01/2022 Active 1 goal linked to scheduled/documented [...] 75% of instruction. [facility] Visit [...] may be best. [facility] Visit Details Visit Type -SN HH OASIS Star t of Care Discipline -[facility] Problems Problem Start Date Status Goals Interventions Assess and Instruct Home Visit Disciplines: [facility] 05/01/2022 Active 1 goal linked to scheduled/documented intervention 4 goal interventions scheduled/documented in this visit Medication Management Disciplines: [facility] 05/01/2022 Active 1 goal linked to scheduled/documented intervention 1 goal intervention scheduled/documented in this visit Pain Management Disciplines: [facility] 05/01/2022 Active 1 goal linked to scheduled/documented intervention 1 goal intervention scheduled/documented in this visit Wound Care and/or Skin Problems Disciplines: [facility] 05/01/2022 Active 1 goal linked to scheduled/documented intervention 1 goal intervention scheduled/documented in this visit Cardiac Disciplines: [facility] 05/01/2022 Active 2 goals linked to scheduled/documented interventions 2 goal interventions scheduled/documented in this visit Gastrointestinal Disciplines: [facility] 05/01/2022 Active 1 goal linked to scheduled/documented intervention 1 goal intervention scheduled/documented in this visit Respiratory Disciplines: [facility] 05/01/2022 Active 1 goal linked to scheduled/documented [...] 75% of instruction. 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 Pt [...] 90% of instruction. [facility] Visit Details Visit Type -SN HH Routine Vi sit Discipline -[facility] Problems Problem Start Date Status Goals Interventions Assess and Instruct Home Visit Disciplines: [facility] 05/01/2022 Active 1 goal linked to scheduled/documented intervention 4 goal interventions scheduled/documented in this visit Medication Management Disciplines: [facility] 05/01/2022 Active 1 goal linked to scheduled/documented intervention 1 goal intervention scheduled/documented in this visit Pain Management Disciplines: [facility] 05/01/2022 Active 1 goal linked to scheduled/documented intervention 1 goal intervention scheduled/documented in this visit Wound Care and/or Skin Problems Disciplines: [facility] 05/01/2022 Active 1 goal linked to scheduled/documented intervention 1 goal intervention scheduled/documented in this visit Cardiac Disciplines: [facility] 05/01/2022 Active 2 goals linked to scheduled/documented interventions 2 goal interventions scheduled/documented in this visit Gastrointestinal Disciplines: [facility] 05/01/2022 Active 1 goal linked to scheduled/documented intervention 1 goal intervention scheduled/documented in this visit Respiratory Disciplines: [facility] 05/01/2022 Active 1 goal linked to scheduled/documented [...] storage of oxygen. [facility] Visit [...] Care Plan Scheduled documented in this encounter [facility] home Plan of care note* Visit Details Visit Type -SN HH OASIS Star t [facility] Discipline -[facility] Problems Problem Start Date Status Goals Interventions Assess and Instruct Home Visit Disciplines: [facility] 05/01/2022 Active 1 goal linked to scheduled/documented intervention 4 goal interventions scheduled/documented in this visit Medication Management Disciplines: [facility] 05/01/2022 Active 1 goal linked to scheduled/documented intervention 1 goal intervention scheduled/documented in this visit Pain Management Disciplines: [facility] 05/01/2022 Active 1 goal linked to scheduled/documented intervention 1 goal intervention scheduled/documented in this visit Wound Care and/or Skin Problems Disciplines: [facility] 05/01/2022 Active 1 goal linked to scheduled/documented intervention 1 goal intervention scheduled/documented in this visit Cardiac Disciplines: [facility] 05/01/2022 Active 2 goals linked to scheduled/documented interventions 2 goal interventions scheduled/documented in this visit Gastrointestinal Disciplines: [facility] 05/01/2022 Active 1 goal linked to scheduled/documented intervention 1 goal intervention scheduled/documented in this visit Respiratory Disciplines: [facility] 05/01/2022 Active 1 goal linked to scheduled/documented [...] of care note* Visit Details Visit Type -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 Routine Visi t Discipline -Physical Therapy Problems [...] 100% of instruction. [facility] Visit Details Visit Type -SN HH Routine Vi sit Discipline -[facility] Problems Problem Start Date Status Goals Interventions Assess and Instruct Home Visit Disciplines: [facility] 05/01/2022 Active 1 goal linked to scheduled/documented intervention 4 goal interventions scheduled/documented in this visit Medication Management Disciplines: [facility] 05/01/2022 Active 1 goal linked to scheduled/documented intervention 1 goal intervention scheduled/documented in this visit Pain Management Disciplines: [facility] 05/01/2022 Active 1 goal linked to scheduled/documented intervention 1 goal intervention scheduled/documented in this visit Wound Care and/or Skin Problems Disciplines: [facility] 05/01/2022 Active 1 goal linked to scheduled/documented intervention 1 goal intervention scheduled/documented in this visit Cardiac Disciplines: [facility] 05/01/2022 Active 2 goals linked to scheduled/documented interventions 2 goal interventions scheduled/documented in this visit Gastrointestinal Disciplines: [facility] 05/01/2022 Active 1 goal linked to scheduled/documented intervention 1 goal intervention scheduled/documented in this visit Respiratory Disciplines: [facility] 05/01/2022 Active 1 goal linked to scheduled/documented intervention 1 goal intervention scheduled/documented in this visit Wound Care and/or Skin Problems Disciplines: [facility] 05/12/2022 Active 1 goal linked to scheduled/documented [...] pt tolerated well. 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 Pt [...] 90% of instruction. [facility] Visit [...] realizes that he needs to use the chrome tanner instead of bending over. [facility] Visit Details Visit Type -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 Routine Visi t Discipline -Physical Therapy Problems [...] 100% of instruction. [facility] Visit Details Visit Type -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 Routine Visi t Discipline -Physical Therapy Problems [...] 100% of instruction. [facility] Visit Details Visit Type -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 Routine Visi t Discipline -Physical Therapy Problems [...] safety precautions Skilled intervention at next visit: 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 plan to continue transfer trianing for increased safety and reduce risk for falls. Home Exercise Program Problem:Home Exercise Program Goal:Home Exercise Program Completed Patient reports: fair compliance Clinician taught: patient Clinician instructed on: 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 reviews standing HEP with patient. Patient demos fair recall with technique and reports fair compliance with exercise program. Patient/caregiver is able to teach back 80% of instruction. Patient with O2 donned during therex at 2L, SPO2 levels still dropped to 79% during standing therex, 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 provides cues again for PLB techniques, fair carryover, SPO2 levels returned to 93%+ by end of session. patient left in chair with O2 donned with spouse present Instruct Mobility Problem:Mobility Goal:Mobility Completed Patient reports: no falls Clinician taught: patient Clinician instructed on: 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 provides skilled instruct for pateint to compelte STS t/f from chair with 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 CGA during for safety, max verbal cues for proper technique and safety awareness to avoid a fall, patient with one major LOB requiring Wendy from 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 to prevent fall, skilled instruct for patient to complete stair training with CGA and use of grab bars, patient with poor safety awareness as noted by impulsivity, O2 tubing too short to reach garage, doffed tubing, constant cues to patient for proper breathing techniques. 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 provides skilled instruct for patient to complete car transfer training with 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 providing demo for maximum safety, implemented wooden step to increase safety, spouse present for traiing with both patient and spouse report understanding on use of wooden step to increase safety. patient continues to demo impulsivity with all transfers and mobility, constant cues to correct. upon return to sit in chair, SPO2 levels 68%, immediately donned O2 and 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 instructed patient to compelte PLB techniques, cues to continue these until SPO@ levels returned to 94%, O2 on 2L for entire session. Patient/caregiver is able to teach back 80% of instruction. [facility] Visit Details Visit Type -SN HH Routine Vi sit Discipline -[facility] Problems Problem Start Date Status Goals Interventions Assess and Instruct Home Visit Disciplines: [facility] 05/01/2022 Active 1 goal linked to scheduled/documented intervention 4 goal interventions scheduled/documented in this visit Medication Management Disciplines: [facility] 05/01/2022 Active 1 goal linked to scheduled/documented intervention 1 goal intervention scheduled/documented in this visit Pain Management Disciplines: [facility] 05/01/2022 Active 1 goal linked to scheduled/documented intervention 1 goal intervention scheduled/documented in this visit Wound Care and/or Skin Problems Disciplines: [facility] 05/01/2022 Active 1 goal linked to scheduled/documented intervention 1 goal intervention scheduled/documented in this visit Cardiac Disciplines: [facility] 05/01/2022 Active 2 goals linked to scheduled/documented interventions 2 goal interventions scheduled/documented in this visit Gastrointestinal Disciplines: [facility] 05/01/2022 Active 1 goal linked to scheduled/documented intervention 1 goal intervention scheduled/documented in this visit Respiratory Disciplines: [facility] 05/01/2022 Active 1 goal linked to scheduled/documented intervention 1 goal intervention scheduled/documented in this visit Wound Care and/or Skin Problems Disciplines: [facility] 05/12/2022 Active 1 goal linked to scheduled/documented [...] of care note* Visit Details Visit Type -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 Routine Visi t Discipline -Physical Therapy Problems [...] safety precautions Skilled intervention at next visit: 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 plan to continue transfer trianing for increased safety and reduce risk for falls. Home Exercise Program Problem:Home Exercise Program Goal:Home Exercise Program Completed Patient reports: fair compliance Clinician taught: patient Clinician instructed on: 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 reviews standing HEP with patient. Patient demos fair recall with technique and reports fair compliance with exercise program. Patient/caregiver is able to teach back 80% of instruction. Patient with O2 donned during therex at 2L, SPO2 levels still dropped to 79% during standing therex, 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 provides cues again for PLB techniques, fair carryover, SPO2 levels returned to 93%+ by end of session. patient left in chair with O2 donned with spouse present Instruct Mobility Problem:Mobility Goal:Mobility Completed Patient reports: no falls Clinician taught: patient Clinician instructed on: 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 provides skilled instruct for pateint to compelte STS t/f from chair with 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 CGA during for safety, max verbal cues for proper technique and safety awareness to avoid a fall, patient with one major LOB requiring Wendy from 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 to prevent fall, skilled instruct for patient to complete stair training with CGA and use of grab bars, patient with poor safety awareness as noted by impulsivity, O2 tubing too short to reach garage, doffed tubing, constant cues to patient for proper breathing techniques. 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 provides skilled instruct for patient to complete car transfer training with 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 providing demo for maximum safety, implemented wooden step to increase safety, spouse present for traiing with both patient and spouse report understanding on use of wooden step to increase safety. patient continues to demo impulsivity with all transfers and mobility, constant cues to correct. upon return to sit in chair, SPO2 levels 68%, immediately donned O2 and 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 instructed patient to compelte PLB techniques, cues to continue these until SPO@ levels returned to 94%, O2 on 2L for entire session. Patient/caregiver is able to teach back 80% of instruction. [facility] Visit Details Visit Type -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 Routine Visi t Discipline -Physical Therapy Problems [...] risk of falls. [facility] Visit Details Visit Type -SN HH Routine Vi sit Discipline -[facility] Problems Problem Start Date Status Goals Interventions Assess and Instruct Home Visit Disciplines: [facility] 05/01/2022 Active 1 goal linked to scheduled/documented intervention 4 goal interventions scheduled/documented in this visit Medication Management Disciplines: [facility] 05/01/2022 Active 1 goal linked to scheduled/documented intervention 1 goal intervention scheduled/documented in this visit Pain Management Disciplines: [facility] 05/01/2022 Active 1 goal linked to scheduled/documented intervention 1 goal intervention scheduled/documented in this visit Cardiac Disciplines: [facility] 05/01/2022 Active 2 goals linked to scheduled/documented interventions 2 goal interventions scheduled/documented in this visit Gastrointestinal Disciplines: [facility] 05/01/2022 Active 1 goal linked to scheduled/documented intervention 1 goal intervention scheduled/documented in this visit Respiratory Disciplines: [facility] 05/01/2022 Active 1 goal linked to scheduled/documented [...] storage of oxygen. [facility] Visit Details Visit Type -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 Routine Visi t Discipline -Physical Therapy Problems [...] Clinician instructed on: d/t patient back pain, 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 provides skilled instruct for patient to complete seated HEP instead of standing HEP to reduce pain, completed to increase activity tolerance for safe return to PLOF. Patient/caregiver is able to teach back 80% of instruction. Instruct Mobility Problem:Mobility Goal:Mobility Completed Patient reports: no falls Clinician taught: patient Clinician instructed on: 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 provides skilled instruct for patient to complete gait training with FWW and 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 S during for safety, to increase activity tolerance, patient SPO2 levels 84% on 2L O2, cues for proper breathing techniques during seated rest break with SPO2 levels rising to 95%. Patient/caregiver is able to teach back 80% of instruction. [facility] Visit Details Visit Type -SN HH Routine Vi sit Discipline -[facility] Problems Problem Start Date Status Goals Interventions Assess and Instruct Home Visit Disciplines: [facility] 05/01/2022 Active 1 goal linked to scheduled/documented intervention 4 goal interventions scheduled/documented in this visit Medication Management Disciplines: [facility] 05/01/2022 Active 1 goal linked to scheduled/documented intervention 1 goal intervention scheduled/documented in this visit Pain Management Disciplines: [facility] 05/01/2022 Active 1 goal linked to scheduled/documented intervention 1 goal intervention scheduled/documented in this visit Cardiac Disciplines: [facility] 05/01/2022 Active 2 goals linked to scheduled/documented interventions 2 goal interventions scheduled/documented in this visit Gastrointestinal Disciplines: [facility] 05/01/2022 Active 1 goal linked to scheduled/documented intervention 1 goal intervention scheduled/documented in this visit Respiratory Disciplines: [facility] 05/01/2022 Active 1 goal linked to scheduled/documented intervention 1 goal intervention scheduled/documented in this visit Wound Care and/or Skin Problems Disciplines: [facility] 05/12/2022 Active 1 goal linked to scheduled/documented [...] barrier paste applied. [facility] Visit Details Visit Type -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 Routine Visi t Discipline -Physical Therapy Problems [...] Clinician instructed on: d/t patient back pain, 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 provides skilled instruct for patient to complete seated HEP instead of standing HEP to reduce pain, completed to increase activity tolerance for safe return to PLOF. Patient/caregiver is able to teach back 80% of instruction. Instruct Mobility Problem:Mobility Goal:Mobility Completed Patient reports: no falls Clinician taught: patient Clinician instructed on: 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 provides skilled instruct for patient to complete gait training with FWW and 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 S during for safety, to increase activity tolerance, patient SPO2 levels 84% on 2L O2, cues for proper breathing techniques during seated rest break with SPO2 levels rising to 95%. Patient/caregiver is able to teach back 80% of instruction. [facility] Visit Details Visit Type -SN HH Routine Vi sit Discipline -[facility] Problems Problem Start Date Status Goals Interventions Assess and Instruct Home Visit Disciplines: [facility] 05/01/2022 Active 1 goal linked to scheduled/documented intervention 4 goal interventions scheduled/documented in this visit Medication Management Disciplines: [facility] 05/01/2022 Active 1 goal linked to scheduled/documented intervention 1 goal intervention scheduled/documented in this visit Pain Management Disciplines: [facility] 05/01/2022 Active 1 goal linked to scheduled/documented intervention 1 goal intervention scheduled/documented in this visit Cardiac Disciplines: [facility] 05/01/2022 Active 2 goals linked to scheduled/documented interventions 2 goal interventions scheduled/documented in this visit Gastrointestinal Disciplines: [facility] 05/01/2022 Active 1 goal linked to scheduled/documented intervention 1 goal intervention scheduled/documented in this visit Respiratory Disciplines: [facility] 05/01/2022 Active 1 goal linked to scheduled/documented intervention 1 goal intervention scheduled/documented in this visit Wound Care and/or Skin Problems Disciplines: [facility] 05/12/2022 Active 1 goal linked to scheduled/documented [...] barrier paste applied. [facility] Visit Details Visit Type -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 Routine Visi t Discipline -Physical Therapy Problems [...] of care note* Visit Details Visit Type -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 Routine Visi t Discipline -Physical Therapy Problems [...] 100% of instruction. 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 [facility] Visit [...] Care Plan Scheduled documented in this encounter [facility] Plan of care [facility]* Visit Details Visit Type -SN HH Routine Vi sit Discipline -[facility] Problems Problem Start Date Status Goals Interventions Assess and Instruct Home Visit Disciplines: [facility] 05/01/2022 Active 1 goal linked to scheduled/documented intervention 4 goal interventions scheduled/documented in this visit Medication Management Disciplines: [facility] 05/01/2022 Active 1 goal linked to scheduled/documented intervention 1 goal intervention scheduled/documented in this visit Pain Management Disciplines: [facility] 05/01/2022 Active 1 goal linked to scheduled/documented intervention 1 goal intervention scheduled/documented in this visit Cardiac Disciplines: [facility] 05/01/2022 Active 2 goals linked to scheduled/documented interventions 2 goal interventions scheduled/documented in this visit Gastrointestinal Disciplines: [facility] 05/01/2022 Active 1 goal linked to scheduled/documented intervention 1 goal intervention scheduled/documented in this visit Respiratory Disciplines: [facility] 05/01/2022 Active 1 goal linked to scheduled/documented intervention 1 goal intervention scheduled/documented in this visit Wound Care and/or Skin Problems Disciplines: [facility] 05/12/2022 Active 1 goal linked to scheduled/documented [...] states he understands. 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 documented in this encounter [facility] home Plan of care note* Visit Details Visit Type -SN HH OASIS Rece rt Discipline -[facility] Problems Problem Start Date Status Goals Interventions Assess and Instruct Home Visit Disciplines: [facility] 05/01/2022 Active 1 goal linked to scheduled/documented intervention 4 goal interventions scheduled/documented in this visit Medication Management Disciplines: [facility] 05/01/2022 Active 1 goal linked to scheduled/documented intervention 1 goal intervention scheduled/documented in this visit Pain Management Disciplines: [facility] 05/01/2022 Active 1 goal linked to scheduled/documented intervention 1 goal intervention scheduled/documented in this visit Respiratory Disciplines: [facility] 05/01/2022 Active 1 goal linked to scheduled/documented intervention 1 goal intervention scheduled/documented in this visit Wound Care and/or Skin Problems Disciplines: [facility] 05/12/2022 Active 1 goal linked to scheduled/documented [...] relief education reinforced. [facility] Visit Details Visit Type -SN HH OASIS Rece rt Discipline -[facility] Problems Problem Start Date Status Goals Interventions Assess and Instruct Home Visit Disciplines: [facility] 05/01/2022 Active 1 goal linked to scheduled/documented intervention 4 goal interventions scheduled/documented in this visit Medication Management Disciplines: [facility] 05/01/2022 Active 1 goal linked to scheduled/documented intervention 1 goal intervention scheduled/documented in this visit Pain Management Disciplines: [facility] 05/01/2022 Active 1 goal linked to scheduled/documented intervention 1 goal intervention scheduled/documented in this visit Respiratory Disciplines: [facility] 05/01/2022 Active 1 goal linked to scheduled/documented intervention 1 goal intervention scheduled/documented in this visit Wound Care and/or Skin Problems Disciplines: [facility] 05/12/2022 Active 1 goal linked to scheduled/documented [...] relief education reinforced. [facility] Visit Details Visit Type -SN HH Routine Vi sit Discipline -[facility] Problems Problem Start Date Status Goals Interventions Assess and Instruct Home Visit Disciplines: [facility] 05/01/2022 Active 1 goal linked to scheduled/documented intervention 4 goal interventions scheduled/documented in this visit Medication Management Disciplines: [facility] 05/01/2022 Active 1 goal linked to scheduled/documented intervention 1 goal intervention scheduled/documented in this visit Pain Management Disciplines: [facility] 05/01/2022 Active 1 goal linked to scheduled/documented intervention 1 goal intervention scheduled/documented in this visit Respiratory Disciplines: [facility] 05/01/2022 Active 1 goal linked to scheduled/documented intervention 1 goal intervention scheduled/documented in this visit Wound Care and/or Skin Problems Disciplines: [facility] 05/12/2022 Active 1 goal linked to scheduled/documented [...] Pt tolerated well. [facility] Visit Details Visit Type -SN HH Routine Vi sit Discipline -[facility] Problems Problem Start Date Status Goals Interventions Assess and Instruct Home Visit Disciplines: [facility] 05/01/2022 Active 1 goal linked to scheduled/documented intervention 4 goal interventions scheduled/documented in this visit Medication Management Disciplines: [facility] 05/01/2022 Active 1 goal linked to scheduled/documented intervention 1 goal intervention scheduled/documented in this visit Pain Management Disciplines: [facility] 05/01/2022 Active 1 goal linked to scheduled/documented intervention 1 goal intervention scheduled/documented in this visit Respiratory Disciplines: [facility] 05/01/2022 Active 1 goal linked to scheduled/documented intervention 1 goal intervention scheduled/documented in this visit Wound Care and/or Skin Problems Disciplines: [facility] 05/12/2022 Active 1 goal linked to scheduled/documented [...] Pt tolerated well. [facility] Visit Details Visit Type -PAPER RULER HH Missed Vi sit Discipline -[facility] Problems Problem Start Date Status Goals Interventions Assess and Instruct Home Visit Disciplines: [facility] 05/01/2022 Active 1 goal linked to scheduled/documented intervention 4 goal interventions scheduled/documented in this visit Medication Management Disciplines: [facility] 05/01/2022 Active 1 goal linked to scheduled/documented intervention 1 goal intervention scheduled/documented in this visit Pain Management Disciplines: [facility] 05/01/2022 Active 1 goal linked to scheduled/documented [...] Management Goal:Pain Scheduled [facility] Visit Details Visit Type -SN HH OASIS Rece rt Discipline -[facility] Problems Problem Start Date Status Goals Interventions Assess and Instruct Home Visit Disciplines: [facility] 05/01/2022 Active 1 goal linked to scheduled/documented intervention 4 goal interventions scheduled/documented in this visit Medication Management Disciplines: [facility] 05/01/2022 Active 1 goal linked to scheduled/documented intervention 1 goal intervention scheduled/documented in this visit Pain Management Disciplines: [facility] 05/01/2022 Active 1 goal linked to scheduled/documented intervention 1 goal intervention scheduled/documented in this visit Respiratory Disciplines: [facility] 05/01/2022 Active 1 goal linked to scheduled/documented intervention 1 goal intervention scheduled/documented in this visit Wound Care and/or Skin Problems Disciplines: [facility] 05/12/2022 Active 1 goal linked to scheduled/documented [...] and cleansing wound. [facility] Visit Details Visit Type -SN HH Routine Vi sit Discipline -[facility] Problems Problem Start Date Status Goals Interventions Assess and Instruct Home Visit Disciplines: [facility] 05/01/2022 Active 1 goal linked to scheduled/documented intervention 4 goal interventions scheduled/documented in this visit Medication Management Disciplines: [facility] 05/01/2022 Active 1 goal linked to scheduled/documented intervention 1 goal intervention scheduled/documented in this visit Pain Management Disciplines: [facility] 05/01/2022 Active 1 goal linked to scheduled/documented intervention 1 goal intervention scheduled/documented in this visit Respiratory Disciplines: [facility] 05/01/2022 Active 1 goal linked to scheduled/documented intervention 1 goal intervention scheduled/documented in this visit Wound Care and/or Skin Problems Disciplines: [facility] 05/12/2022 Active - 1 problem intervention scheduled/documented [...] health or provider. [facility] Visit Details Visit Type -SN HH OASIS Rece rt Discipline -[facility] Problems Problem Start Date Status Goals Interventions Assess and Instruct Home Visit Disciplines: [facility] 05/01/2022 Active 1 goal linked to scheduled/documented intervention 4 goal interventions scheduled/documented in this visit Medication Management Disciplines: [facility] 05/01/2022 Active 1 goal linked to scheduled/documented intervention 1 goal intervention scheduled/documented in this visit Pain Management Disciplines: [facility] 05/01/2022 Active 1 goal linked to scheduled/documented intervention 1 goal intervention scheduled/documented in this visit Respiratory Disciplines: [facility] 05/01/2022 Active 1 goal linked to scheduled/documented intervention 1 goal intervention scheduled/documented in this visit Wound Care and/or Skin Problems Disciplines: [facility] 05/12/2022 Active 1 goal linked to scheduled/documented [...] and cleansing wound. [facility] Visit Details Visit Type -SN HH Routine Vi sit Discipline -[facility] Problems Problem Start Date Status Goals Interventions Assess and Instruct Home Visit Disciplines: [facility] 05/01/2022 Active 1 goal linked to scheduled/documented intervention 4 goal interventions scheduled/documented in this visit Medication Management Disciplines: [facility] 05/01/2022 Active 1 goal linked to scheduled/documented intervention 1 goal intervention scheduled/documented in this visit Pain Management Disciplines: [facility] 05/01/2022 Active 1 goal linked to scheduled/documented intervention 1 goal intervention scheduled/documented in this visit Respiratory Disciplines: [facility] 05/01/2022 Active 1 goal linked to scheduled/documented intervention 1 goal intervention scheduled/documented in this visit Wound Care and/or Skin Problems Disciplines: [facility] 05/12/2022 Active - 1 problem intervention scheduled/documented [...] health or provider. [facility] Visit Details Visit Type -SN HH Routine Vi sit Discipline -[facility] Problems Problem Start Date Status Goals Interventions Assess and Instruct Home Visit Disciplines: [facility] 05/01/2022 Active 1 goal linked to scheduled/documented intervention 4 goal interventions scheduled/documented in this visit Medication Management Disciplines: [facility] 05/01/2022 Active 1 goal linked to scheduled/documented intervention 1 goal intervention scheduled/documented in this visit Pain Management Disciplines: [facility] 05/01/2022 Active 1 goal linked to scheduled/documented intervention 1 goal intervention scheduled/documented in this visit Respiratory Disciplines: [facility] 05/01/2022 Active 1 goal linked to scheduled/documented intervention 1 goal intervention scheduled/documented in this visit Wound Care and/or Skin Problems Disciplines: [facility] 05/12/2022 Active - 1 problem intervention scheduled/documented [...] with wound education. [facility] Visit Details Visit Type -SN HH Routine Vi sit Discipline -[facility] Problems Problem Start Date Status Goals Interventions Assess and Instruct Home Visit Disciplines: [facility] 05/01/2022 Active 1 goal linked to scheduled/documented intervention 4 goal interventions scheduled/documented in this visit Medication Management Disciplines: [facility] 05/01/2022 Active 1 goal linked to scheduled/documented intervention 1 goal intervention scheduled/documented in this visit Pain Management Disciplines: [facility] 05/01/2022 Active 1 goal linked to scheduled/documented intervention 1 goal intervention scheduled/documented in this visit Respiratory Disciplines: [facility] 05/01/2022 Active 1 goal linked to scheduled/documented intervention 1 goal intervention scheduled/documented in this visit Wound Care and/or Skin Problems Disciplines: [facility] 05/12/2022 Active - 1 problem intervention scheduled/documented [...] with wound education. [facility] Visit Details Visit Type -SN HH Routine Vi sit Discipline -[facility] Problems Problem Start Date Status Goals Interventions Assess and Instruct Home Visit Disciplines: [facility] 05/01/2022 Active 1 goal linked to scheduled/documented intervention 4 goal interventions scheduled/documented in this visit Medication Management Disciplines: [facility] 05/01/2022 Active 1 goal linked to scheduled/documented intervention 1 goal intervention scheduled/documented in this visit Pain Management Disciplines: [facility] 05/01/2022 Active 1 goal linked to scheduled/documented intervention 1 goal intervention scheduled/documented in this visit Respiratory Disciplines: [facility] 05/01/2022 Active 1 goal linked to scheduled/documented intervention 1 goal intervention scheduled/documented in this visit Wound Care and/or Skin Problems Disciplines: [facility] 05/12/2022 Active - 1 problem intervention scheduled/documented [...] with wound education. [facility] Visit Details Visit Type -SN HH Routine Vi sit Discipline -[facility] Problems Problem Start Date Status Goals Interventions Assess and Instruct Home Visit Disciplines: [facility] 05/01/2022 Active 1 goal linked to scheduled/documented intervention 4 goal interventions scheduled/documented in this visit Medication Management Disciplines: [facility] 05/01/2022 Active 1 goal linked to scheduled/documented intervention 1 goal intervention scheduled/documented in this visit Pain Management Disciplines: [facility] 05/01/2022 Active 1 goal linked to scheduled/documented intervention 1 goal intervention scheduled/documented in this visit Respiratory Disciplines: [facility] 05/01/2022 Active 1 goal linked to scheduled/documented intervention 1 goal intervention scheduled/documented in this visit Wound Care and/or Skin Problems Disciplines: [facility] 05/12/2022 Active - 1 problem intervention scheduled/documented [...] with wound education. [facility] Visit Details Visit Type -SN HH Routine Vi sit Discipline -[facility] Problems Problem Start Date Status Goals Interventions Assess and Instruct Home Visit Disciplines: [facility] 05/01/2022 Active 1 goal linked to scheduled/documented intervention 4 goal interventions scheduled/documented in this visit Medication Management Disciplines: [facility] 05/01/2022 Active 1 goal linked to scheduled/documented intervention 1 goal intervention scheduled/documented in this visit Pain Management Disciplines: [facility] 05/01/2022 Active 1 goal linked to scheduled/documented intervention 1 goal intervention scheduled/documented in this visit Respiratory Disciplines: [facility] 05/01/2022 Active 1 goal linked to scheduled/documented intervention 1 goal intervention scheduled/documented in this visit Wound Care and/or Skin Problems Disciplines: [facility] 05/12/2022 Active - 1 problem intervention scheduled/documented [...] with wound education. [facility] Visit Details Visit Type -SN HH OASIS Rece rt Discipline -[facility] Problems Problem Start Date Status Goals Interventions Assess and Instruct Home Visit Disciplines: [facility] 05/01/2022 Active 1 goal linked to scheduled/documented intervention 4 goal interventions scheduled/documented in this visit Medication Management Disciplines: [facility] 05/01/2022 Active 1 goal linked to scheduled/documented intervention 1 goal intervention scheduled/documented in this visit Pain Management Disciplines: [facility] 05/01/2022 Active 1 goal linked to scheduled/documented intervention 1 goal intervention scheduled/documented in this visit Respiratory Disciplines: [facility] 05/01/2022 Active 1 goal linked to scheduled/documented intervention 1 goal intervention scheduled/documented in this visit Wound Care and/or Skin Problems Disciplines: [facility] 05/12/2022 Active - 1 problem intervention scheduled/documented [...] with wound education. [facility] Visit Details Visit Type -SN HH OASIS Rece rt Discipline -[facility] Problems Problem Start Date Status Goals Interventions Assess and Instruct Home Visit Disciplines: [facility] 05/01/2022 Active 1 goal linked to scheduled/documented intervention 4 goal interventions scheduled/documented in this visit Medication Management Disciplines: [facility] 05/01/2022 Active 1 goal linked to scheduled/documented intervention 1 goal intervention scheduled/documented in this visit Pain Management Disciplines: [facility] 05/01/2022 Active 1 goal linked to scheduled/documented intervention 1 goal intervention scheduled/documented in this visit Respiratory Disciplines: [facility] 05/01/2022 Active 1 goal linked to scheduled/documented intervention 1 goal intervention scheduled/documented in this visit Wound Care and/or Skin Problems Disciplines: [facility] 05/12/2022 Active - 1 problem intervention scheduled/documented [...] with wound education. [facility] Visit Details Visit Type -SN HH OASIS Rece rt Discipline -[facility] Problems Problem Start Date Status Goals Interventions Assess and Instruct Home Visit Disciplines: [facility] 05/01/2022 Active 1 goal linked to scheduled/documented intervention 4 goal interventions scheduled/documented in this visit Medication Management Disciplines: [facility] 05/01/2022 Active 1 goal linked to scheduled/documented intervention 1 goal intervention scheduled/documented in this visit Pain Management Disciplines: [facility] 05/01/2022 Active 1 goal linked to scheduled/documented intervention 1 goal intervention scheduled/documented in this visit Respiratory Disciplines: [facility] 05/01/2022 Active 1 goal linked to scheduled/documented intervention 1 goal intervention scheduled/documented in this visit Wound Care and/or Skin Problems Disciplines: [facility] 05/12/2022 Active - 1 problem intervention scheduled/documented [...] with wound education. [facility] Visit Details Visit Type -SN HH Routine Vi sit Discipline -[facility] Problems Problem Start Date Status Goals Interventions Assess and Instruct Home Visit Disciplines: [facility] 05/01/2022 Active 1 goal linked to scheduled/documented intervention 4 goal interventions scheduled/documented in this visit Medication Management Disciplines: [facility] 05/01/2022 Active 1 goal linked to scheduled/documented intervention 1 goal intervention scheduled/documented in this visit Pain Management Disciplines: [facility] 05/01/2022 Active 1 goal linked to scheduled/documented intervention 1 goal intervention scheduled/documented in this visit Respiratory Disciplines: [facility] 05/01/2022 Active 1 goal linked to scheduled/documented intervention 1 goal intervention scheduled/documented in this visit Wound Care and/or Skin Problems Disciplines: [facility] 05/12/2022 Active - 1 problem intervention scheduled/documented [...] with wound education. [facility] Visit Details Visit Type -PAPER RULER Routine Discipline -[facility] Problems Problem Start Date Status Goals Interventions Assess and Instruct Home Visit Disciplines: [facility] 05/01/2022 Active 1 goal linked to scheduled/documented intervention 4 goal interventions scheduled/documented in this visit Medication Management Disciplines: [facility] 05/01/2022 Active 1 goal linked to scheduled/documented intervention 1 goal intervention scheduled/documented in this visit Pain Management Disciplines: [facility] 05/01/2022 Active 1 goal linked to scheduled/documented intervention 1 goal intervention scheduled/documented in this visit Wound Care and/or Skin Problems Disciplines: [facility] 05/12/2022 Active - 1 problem intervention scheduled/documented [...] of care note* Visit Details Visit Type -[facility] OASIS Guerrero sfer Discipline -[facility] Problems Problem Start Date Status Goals Interventions Assess and Instruct Home Visit Disciplines: [facility] 05/01/2022 Active 1 goal linked to scheduled/documented intervention 4 goal interventions scheduled/documented in this visit Medication Management Disciplines: [facility] 05/01/2022 Active 1 goal linked to scheduled/documented intervention 1 goal intervention scheduled/documented in this visit Pain Management Disciplines: [facility] 05/01/2022 Active 1 goal linked to scheduled/documented intervention 1 goal intervention scheduled/documented in this visit Wound Care and/or Skin Problems Disciplines: [facility] 05/12/2022 Active - 1 problem intervention scheduled/documented [...] of care note* Visit Details Visit Type -[facility] OASIS Resu mption of Care Discipline -[facility] Problems Problem Start Date Status Goals Interventions Assess and Instruct Home Visit Disciplines: [facility] 05/01/2022 Active 1 goal linked to scheduled/documented intervention 4 goal interventions scheduled/documented in this visit Medication Management Disciplines: [facility] 05/01/2022 Active 1 goal linked to scheduled/documented intervention 1 goal intervention scheduled/documented in this visit Pain Management Disciplines: [facility] 05/01/2022 Active 1 goal linked to scheduled/documented intervention 1 goal intervention scheduled/documented in this visit Respiratory Disciplines: [facility] 05/01/2022 Active 1 goal linked to scheduled/documented intervention 1 goal intervention scheduled/documented in this visit Wound Care and/or Skin Problems Disciplines: [facility] 05/12/2022 Active - 1 problem intervention scheduled/documented [...] with wound education. [facility] Visit Details Visit Type -SN HH OASIS Resu mption of Care Discipline -[facility] Problems Problem Start Date Status Goals Interventions Assess and Instruct Home Visit Disciplines: [facility] 05/01/2022 Active 1 goal linked to scheduled/documented intervention 4 goal interventions scheduled/documented in this visit Medication Management Disciplines: [facility] 05/01/2022 Active 1 goal linked to scheduled/documented intervention 1 goal intervention scheduled/documented in this visit Pain Management Disciplines: [facility] 05/01/2022 Active 1 goal linked to scheduled/documented intervention 1 goal intervention scheduled/documented in this visit Respiratory Disciplines: [facility] 05/01/2022 Active 1 goal linked to scheduled/documented intervention 1 goal intervention scheduled/documented in this visit Wound Care and/or Skin Problems Disciplines: [facility] 05/12/2022 Active - 1 problem intervention scheduled/documented [...] with wound education. [facility] Visit Details Visit Type -SN HH Routine Vi sit Discipline -[facility] Problems Problem Start Date Status Goals Interventions Assess and Instruct Home Visit Disciplines: [facility] 05/01/2022 Active 1 goal linked to scheduled/documented intervention 4 goal interventions scheduled/documented in this visit Medication Management Disciplines: [facility] 05/01/2022 Active 1 goal linked to scheduled/documented intervention 1 goal intervention scheduled/documented in this visit Pain Management Disciplines: [facility] 05/01/2022 Active 1 goal linked to scheduled/documented intervention 1 goal intervention scheduled/documented in this visit Respiratory Disciplines: [facility] 05/01/2022 Active 1 goal linked to scheduled/documented intervention 1 goal intervention scheduled/documented in this visit Wound Care and/or Skin Problems Disciplines: [facility] 05/12/2022 Active 1 goal linked to scheduled/documented [...] with wound education. [facility] Visit Details Visit Type -SN HH OASIS Disc harge Discipline -[facility] Problems Problem Start Date Status Goals Interventions Assess and Instruct Home Visit Disciplines: [facility] 05/01/2022 Resolved on 12/22/2022 1 goal linked to scheduled/documented intervention 4 goal interventions scheduled/documented in this visit Medication Management Disciplines: [facility] 05/01/2022 Resolved on 12/22/2022 1 goal linked to scheduled/documented intervention 1 goal intervention scheduled/documented in this visit Pain Management Disciplines: [facility] 05/01/2022 Resolved on 12/22/2022 1 goal linked to scheduled/documented intervention 1 goal intervention scheduled/documented in this visit Wound Care and/or Skin Problems Disciplines: [facility] 05/12/2022 Resolved on 12/22/2022 - 1 problem [...] he will see the patient in the [facility] wed and confirms patient will need to be drained by [facility] wed sometime [facility] Actions left side area of concern be low insertion site picture taaken and uploaded into [employer]. message sent to Niurka BALTAZAR with dr [...] - 10 pleure x drains/dressing kits order #[id number] [facility]* Actions L pleurex drain - 350ml ambe r hazy R pleurex drain - 450ml yellow hazy [facility]* Actions Supplies ordered - 10 pleure x drains/dressing kits order #[id number] [facility] [...] supplies ordered - 10 kits - confirmation #[id number] [facility]* Actions KHOI pleurex drain catheters drained without issue.Pt tolerated well. L - 350ml hazy myra R - 450ml hazy yellow [facility]* Actions Pleurex supplies ordered\ Confirmation - #[id number] [facility]* Actions confirmation #[id number] - 10 pleurex drain sets [facility]* Actions confirmation #[id number] - 10 pleurex drain sets [facility]* Actions Pt is to start dialysis this Monday. As of now, it is planned that he runs 3x/day, M, W, F. [facility]* Actions #[id number] - order number 10 pleurex drains [facility]* Actions 10 pleurex drain kits ordere d - Confirmation #[id number] L drain - 350ml clear yellow noted [...] his coccyx area. [facility] Actions A picture of the pt's wound was take, and then wound care was performed. After the pt had donned his clothes and sat down, the picture was showed to him. While transfering the phone back, the [employer] catracho was accidently closed. This caused the [...] situation was explained. A request for a DINOARH referral was made. Someone will be contacting the home care office with further orders. Pt/spouse are requesting 12/01/22 for DINORAH visit. Return call received from Dr Olmos's office. A verbal order received for a DINORAH referral and Dr Olmos will follow for home care services. documented in this encounter [facility] for visit Narrative* Auth/Cert Specialty Diagnoses / Procedures Referred By Alisson t Referred To Contact Diagnoses Pleural effusion Bilateral pleural effusion Pleural effusion [J90] Bilateral pleural effusion [J90] Procedures RI INSERTION INDWELLING TUNNELED PLEURAL CATHETER RIGHT PLEUR X CATHETER PLACEMENT Referral ID Status Reason Start Date Expiration Date Visits Re quested Visits Authorized [id number] 1 1 [facility]* Auth/Cert Specialty Diagnoses / Procedures Referred By Contac t Referred To Contact Referral ID Status Reason Start Date Expiration Date Visits Re quested Visits Authorized [id number] 1 1 [facility]* Auth/Cert Specialty Diagnoses / Procedures Referred By Contac t Referred To Contact Referral ID Status Reason Start Date Expiration Date Visits Re quested Visits Authorized [id number] 1 1 [facility]* Auth/Cert Specialty Diagnoses / Procedures Referred By Contac t Referred To Contact Referral ID Status Reason Start Date Expiration Date Visits Re quested Visits Authorized [id number] 1 1 [facility]* Auth/Cert Specialty Diagnoses / Procedures Referred By Contac t Referred To Contact Diagnoses Malignant neoplasm of ascending colon (HCC) Malignant neoplasm of ascending colon (HCC) [C18.2] Procedures RI COLECTOMY PRTL W/RMVL TERMINAL ILEUM & ILEOCOLOS Sherry George, DO [address] [place] [address] Referral ID Status Reason Start Date Expiration Date Visits Re quested Visits Authorized [id number] 04/11/2022 1 1 [facility] Assessments Diagnosis Coronary artery disease invo lving benton coronary artery of benton heart without angina pectoris - Primary Essential hypertension Unspecified essential hypertension Diagnosis Essential hypertension- Primary Unspecified essential hypertension Coronary artery disease involving benton coronary artery of benton heart without angina pectoris Dyspnea on exertion Other dyspnea and respiratory abnormality Ventricular tachycardia (paroxysmal) (HCC) Paroxysmal ventricular tachycardia Mixed hyperlipidemia Diagnosis Coronary artery disease involving benton coronary artery of benton heart without angina pectoris Essential hypertension Unspecified essential hypertension Ventricular tachycardia (paroxysmal) (HCC) Paroxysmal ventricular tachycardia Diagnosis Coronary artery disease involving benton coronary artery of benton heart without angina pectoris- Primary Mixed hyperlipidemia Chronic combined systolic and diastolic congestive heart failure (HCC) Essential hypertension Unspecified essential hypertension Diagnosis ELLIOTT (dyspnea on exertion) Other dyspnea and respiratory abnormality Diagnosis Therapeutic drug monitoring- Primary Encounter for therapeutic drug monitoring ELLIOTT (dyspnea on exertion) Other dyspnea and respiratory abnormality Essential hypertension Unspecified essential hypertension Coronary artery disease involving benton coronary artery of benton heart without angina pectoris MARCELO on CPAP [...] failure (HCC) Diagnosis Coronary artery disease involving benton coronary artery of benton heart without angina pectoris Chronic systolic congestive heart failure (HCC) Mixed hyperlipidemia Essential hypertension Unspecified essential hypertension Diagnosis Therapeutic drug monitoring Encounter for therapeutic drug monitoring Chronic systolic congestive heart failure (HCC) Diagnosis Therapeutic drug monitoring Encounter for therapeutic drug monitoring Chronic systolic heart failure (HCC) Chronic systolic heart failure Diagnosis Coronary artery disease involving benton coronary artery of benton heart without angina pectoris Diagnosis Chronic systolic congestive heart failure (HCC) Diagnosis medication management- Primary Encounter for therapeutic drug monitoring Chronic systolic congestive heart failure (HCC) Diagnosis Therapeutic drug monitoring- Primary Encounter for therapeutic drug monitoring Chronic systolic heart failure (HCC) Chronic systolic heart failure Diagnosis MARCELO on CPAP Essential hypertension Unspecified essential hypertension Coronary artery disease involving benton coronary artery of benton heart without angina pectoris Chronic systolic congestive heart failure (HCC) Diagnosis Therapeutic drug monitoring- Primary Encounter for therapeutic drug monitoring Chronic systolic congestive heart failure (HCC) Diagnosis Coronary artery disease involving benton coronary artery of benton heart without angina pectoris- Primary Mixed hyperlipidemia Chronic systolic congestive heart failure (HCC) Essential hypertension Unspecified essential hypertension 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 Timmy [address] [place] [address] Status Reason Specialty Diagnoses / Procedures Referred By Contact Referred To Contact Authorized Cardiology Diagnoses Coronary artery disease involving benton coronary artery of benton heart without angina pectoris Procedures ECG 12 lead Lenin Ramirez MD [address] [place] [address] Status Reason Specialty Diagnoses / Procedures Referre d By Contact Referred To Contact Closed Cardiology Diagnoses Coronary artery disease involving benton coronary artery of benton heart without angina pectoris Essential hypertension Ventricular tachycardia (paroxysmal) (HCC) Procedures Echocardiogram complete Lenin Ramirez MD [address] [facility] Tim[address] [place] [address] Status Reason Specialty Diagnoses / Procedures Referre d By Contact Referred To Contact Closed Radiology Diagnoses ELLIOTT (dyspnea on exertion) Procedures NM Myocardial Perfusion Multiple SPECT Lenin Ramirez MD [address] [facility] Timmy [address] [place] [address] Status Reason Specialty Diagnoses / Procedures Referred By Contact Referred To Contact Pending Review Cardiology Diagnoses ELLIOTT (dyspnea on exertion) Procedures Echocardiogram complete Park Hawk, COMMUNITY LIVING INSTRUCTOR [address] [facility] Tim[address] [place], [place] [phone] Status Reason Specialty Diagnoses / Procedures Referred By Contact Referred To Contact Authorized Diagnoses Therapeutic drug monitoring Park Hawk, IGOR [address] [facility] [address] [place], [place] [phone] [facility] [address] [place] [address] Status Reason Specialty Diagnoses / Procedures Referre d By Contact Referred To Contact Closed Cardiology Diagnoses ELLIOTT (dyspnea on exertion) Procedures Echocardiogram complete Park Hawk CNP [address] [phone] Specialty Diagnoses / Procedures Referred By Contac t Referred To Contact Cardiology Diagnoses PAF (paroxysmal atrial fibrillation) (HCC) Procedures ECG 12 lead Park Hawk CNP [address] [id number] Referral ID Status Reason Start Date Expiration Date V isits Requested Visits Authorized [id number] Pending Review 10/26/2020 10/26/2021 1 1 Referral ID Status Reason Start Date Expiration Date V isits Requested Visits Authorized [id number] Authorized 10/26/2020 10/26/2021 1 1 Specialty Diagnoses / Procedures Referred By Contac t Referred To Contact Radiology Diagnoses Pleural effusion Procedures CT Guided Thoracentesis Park Hawk CNP [address] [place] [address] Referral ID Status Reason Start Date Expiration Date V isits Requested Visits Authorized [id number] New Request 10/26/2020 10/26/2021 1 1 Specialty Diagnoses / Procedures Referred By Contac t Referred To Contact Cardiology Diagnoses S/P CABG (coronary artery bypass graft) PAF (paroxysmal atrial fibrillation) (HCC) Chronic systolic congestive heart failure (HCC) Coronary artery disease involving benton coronary artery of benton heart without angina pectoris Essential hypertension Procedures Echocardiogram complete Lenin Ramirez MD [address] [address] Referral ID Status Reason Start Date Expiration Date V isits Requested Visits Authorized [id number] Pending Review 01/17/2021 01/17/2022 1 1 Specialty Diagnoses / Procedures Referred By Contac t Referred To Contact Radiology Diagnoses Pleural effusion Procedures CT Chest Without Contrast Jalil Sparks MD [address] [facility] [address] [place] [address] Referral ID Status Reason Start Date Expiration Date V isits Requested Visits Authorized [id number] Authorized 01/12/2021 01/12/2022 1 1 Specialty Diagnoses / Procedures Referred By Contac t Referred To Contact Cardiology Diagnoses PAF (paroxysmal atrial fibrillation) (HCC) Procedures ECG 12 Lead Lenin Ramirez MD [address] [facility] [address] [place] [phone] Referral ID Status Reason Start Date Expiration Date V isits Requested Visits Authorized [id number] Pending Review 06/09/2021 06/09/2022 4 4 Specialty Diagnoses / Procedures Referred By Contac t Referred To Contact Home Health Services Diagnoses Sepsis, due to unspecified organism, unspecified whether acute organ dysfunction present (HCC) Other pneumonia, unspecified organism Jalil Sparks MD [address] [place] [address] [address] [place] [address] [address] Referral ID Status Reason Start Date Expiration Date V isits Requested Visits Authorized [id number] Authorized 07/05/2021 07/05/2022 1 1 Specialty Diagnoses / Procedures Referred By Contac t Referred To Contact Home Health Services Diagnoses Chronic systolic congestive heart failure (HCC) Coronary artery disease involving benton coronary artery of benton heart without angina pectoris Dyspnea on exertion Generalized weakness Lenin Ramirez MD [address] [address] Referral ID Status Reason Start Date Expiration Date Visits Requested Visits Authorized [id number] Authorized Specialty Services Required/Pat reinaldont's Best Interest 08/17/2021 08/17/2022 1 1 Specialty Diagnoses / Procedures Referred By Contac t Referred To Contact Cardiology Diagnoses Coronary artery disease involving benton coronary artery of benton heart without angina pectoris Chronic systolic congestive heart failure (HCC) Procedures Echocardiogram limited Lenin Ramirez MD [address] [facility] [address] [place] [address] Referral ID Status Reason Start Date Expiration Date V isits Requested Visits Authorized [id number] New Request 11/17/2021 11/17/2022 1 1 Specialty Diagnoses / Procedures Referred By Contac t Referred To Contact General Surgery Diagnoses Adenocarcinoma (HCC) System, Provider Not In Sherry George DO [address] [address] Referral ID Status Reason Start Date Expiration Date V isits Requested Visits Authorized [id number] Authorized 03/23/2022 03/23/2023 1 1 Referral ID Status Reason Start Date Expiration Date V isits Requested Visits Authorized [id number] Pending Review 08/26/2022 08/26/2023 10 10 Specialty Diagnoses / Procedures Referred By Contac t Referred To Contact Radiology Diagnoses Elevated CEA Malignant neoplasm of ascending colon (HCC) Procedures CT Chest Abdomen Pelvis With Contrast Sherry George DO [address] [address] Referral ID Status Reason Start Date Expiration Date V isits Requested Visits Authorized [id number] Pending Review 11/28/2022 11/28/2023 1 1 Specialty Diagnoses / Procedures Referred By Contac t Referred To Contact Home Health Services Diagnoses Malignant neoplasm of ascending colon (HCC) PAF (paroxysmal atrial fibrillation) (HCC) ESRD on dialysis (HCC) Cellulitis of other specified site Cellulitis of perineum Zack Olmos MD [address] [place] [address] [address] [address] Referral ID Status Reason Start Date Expiration Date V isits Requested Visits Authorized [id number] Authorized 11/29/2022 11/29/2023 1 1 Referral ID Status Reason Start Date Expiration Date V isits Requested Visits Authorized [id number] New Request 03/08/2023 03/07/2024 1 1 History [...] effusions and is scheduled to see a tool design engineer next week. He deniesany fever or chills, [...] left IVCD. Assessment/Plan: Coronary artery disease involving benton coronary artery of benton heart without angina pectoris As ischemic status [...] concerning. He is scheduled to see a tool design engineer next week to have this evaluated further. [...] reasonably well following his recent hospitalization in [place] for fluid overload. He was diuresed nearly 10 pounds with a marked improvement in his edema and a mild improvement in his exertional dyspnea. He did have a visit with the tool design engineer and is scheduled to undergo testing within [...] daily . Assessment/Plan: Coronary artery disease involving benton coronary artery of benton heart without angina pectoris Ed continues doing [...] not nervous/anxious. in this encounter* Park Hawk, COMMUNITY LIVING INSTRUCTOR - 07/26/2018 10:44 AM EDT [facility] [address] [facility] OFF[facility] [address] [facility] [phone] Assessment & Plan: Essential hypertension B/P above goal 152/78, 163/72. Monitors B/P at home almost daily and states has noticed a trend in increasing B/P. Current medications include: Lopressor 25 mg daily, Exforge 5-320 mg daily. Will plan on making medication adjustments relative to decreased EF and continue to monitor B/P closely. Coronary artery disease involving benton coronary artery of benton heart without angina pectoris Long-standing CAD with Hx [place] in 2005 Cath 2015: Discrete 40% proximal [...] pillow. I suggested that he contact the [employer] company to discuss other device options to improve his comfort and compliance. CHF (congestive heart failure) (HCC) Hospitalized at [facility] earlier this year with successful diuresis. Known CKD, stage 3 and follows with Nephrology, Dr. Christiansen, in [place]. Recent stress testing revealed substantial decline in EF. Ed states he does have ELLIOTT, now with moderate exertion, it has improved from the ELLIOTT he was experiencing with minimal exertion. Ed continues to have bilateral lower leg edema which improves overnight and increases as his day goes on. He is wearing compression stockings daily. 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 Orders Placed This Encounter Basic metabolic panel Ambulatory referral to [facility] Echocardiogram complete DISCONTD: metoprolol tartrate (LOPRESSOR) 25 MG tablet carvedilol (COREG) 6.25 MG tablet sacubitril-valsartan (ENTRESTO) 24-26 mg per tablet Subjective: Mnih Gonzalez is a 73 y.o. male seen in the office today for Follow-up (abn SPECT. ) and Hypertension (pt states BP has been high at home since starting the Exforge ) HPI: Minh Gonzalez is here today for follow up. A recent stress test revealed declining EF. Ed was hospitalized earlier this year with an acute HF episode at [facility]. After diuresis the symptoms of ELLIOTT with mild exertion improved. He continues to have ELLIOTT with moderate exertion and bilateral lower leg edema persists. He denies chest pain/pressure, orthopnea, PND, palpitations, lightheadedness, syncope or near-syncopal episodes. Histories: Past Medical History: Diagnosis Date Abnormal stress test Arthritis Chest pain CHF (congestive heart failure) ([facility]) Chronic kidney disease COPD (chronic obstructive pulmonary disease) ([facility]) 03/2018 Coronary artery disease Hyperlipidemia Hypertension Myocardial infarction ([facility]) MARCELO on CPAP 2018 SOB (shortness of breath) Past Surgical History: Procedure Laterality Date CARDIAC CATHETERIZATION N/A 08/11/2014 Procedure: Left Heart Cath Possible PTCA/Stent; Surgeon: Lenin Ramirez MD; Location[facility]; Service: CARDIAC CATHETERIZATION Right 12/31/2014 Procedure: Left Heart Cath Possible PTCA/Stent; Surgeon: Ranulfo Cobb MD; Location: [facility]; Service: CARDIAC CATHETERIZATION 08/11/2014 EF: 55% CARDIAC [...] in about 3 weeks (around 08/16/2018) for DIRECTOR VOLUNTEER SERVICES visit. Park Hawk CNP * Maritza Barron [...] EDT Heart Disease Management Nurse Progress Note [facility] OFFICE 08/03/18 Minh Gonzalez 1945 Congestive Heart [...] EDT Heart Disease Management Nurse Progress Note [facility] OFFICE 08/10/18 Minh Limtristen 1945 Congestive Heart [...] EDT Heart Disease Management Nurse Progress Note [facility] OFFICE 08/31/18 Minh Gonzalez 1945 [...] EDT Heart Disease Management Nurse Progress Note [facility] OFFICE 09/21/18 Minh Gonzalez 1945 Congestive Heart [...] Slight limitation of physical activity. Lab Drawn: [facility] today Assessment & Plan Minh was seen [...] EDT Heart Disease Management Nurse Progress Note [facility] OFFICE 10/12/18 Minh Gonzalez 1945 [...] EDT Pre Auth has been approved by [facility] for Entresto 49 mg/51 mg. Pharmacy notified (Ligia Tillman) documented in this encounter* Leonila Walls RN - 11/09/2018 10:34 AM EDT Heart Disease Management Nurse Progress Note [facility] OFFICE 11/09/18 Minh Askewrich 1945 Congestive Heart [...] EDT Heart Disease Management Nurse Progress Note [facility] OFFICE 12/31/18 Minh Gonzalez 1945 Congestive Heart [...] Slight limitation of physical activity. Lab Drawn: [facility] today Assessment & Plan Minh was seen [...] productive cough but will be seeing his Oncology Radiation Physician next week. Diagnoses and all orders for [...] day . Assessment/Plan: Coronary artery disease involving benton coronary artery of benton heart without angina pectoris He continues doing [...] EST Heart Disease Management Nurse Progress Note [facility] OFFICE 03/25/19 Minh Gonzalez 1945 [...] EDT Heart Disease Management Nurse Progress Note [facility] OFFICE 05/24/19 Minh Askewrich 1945 Congestive Heart [...] EDT Heart Disease Management Nurse Progress Note [facility] OFFICE 07/31/19 Minh Limtristen 1945 [...] EDT Heart Disease Management Nurse Progress Note [facility] OFFICE 09/09/19 Minh Gonzalez 1945 [...] 10/01/2019 9:05 AM EDT Application faxed to [employer] Patient assistance. FAX: [phone] documented in this encounter* Leonila Walls RN - 11/04/2019 12:10 PM EDT Heart Disease Management Nurse Progress Note [facility] OFFICE 11/04/19 Minh Askewrich 1945 Congestive Heart [...] EDT Heart Disease Management Nurse Progress Note [facility] OFFICE 12/23/19 Minh Gonzalez 1945 [...] EST Heart Disease Management Nurse Progress Note [facility] OFFICE 02/17/20 Minh Limtristen 1945 Congestive Heart [...] activity. Lab Drawn: BMP Assessment & Plan iMnh was seen today in the congestive heart [...] Lasix for him. He is following a Swine Nutritionist in [place] who was happy with his numbers last week. Ed said he will see his Oncology Radiation Physician next week. BP stable at home. His [...] productive cough in the morning but his Oncology Radiation Physician does not want to start any inhalers [...] 11:57 AM EDT [facility] [address] [facility] OFFICE [address] [facility] [address] Assessment & Plan: MARCELO on CPAP Using [...] quite bothersome diarrhea. Coronary artery disease involving benton coronary artery of benton heart without angina pectoris Long-standing CAD with [...] breathing difficulty. 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 and is able [...] Arthritis Chest pain CHF (congestive heart failure) ([facility]) Chronic kidney disease COPD (chronic obstructive pulmonary disease) ([facility]) 03/2018 Coronary artery disease Hyperlipidemia Hypertension Myocardial infarction ([facility]) MARCELO on CPAP 2018 SOB (shortness of breath) Past Surgical History: Procedure Laterality Date CARDIAC CATHETERIZATION N/A 08/11/2014 Procedure: Left Heart Cath Possible PTCA/Stent; Surgeon: Lenin Ramirez MD; [place] [facility] [place] [facility]; Service: CARDIAC CATHETERIZATION Right 12/31/2014 Procedure: Left Heart Cath Possible PTCA/Stent; Surgeon: Ranulfo Cobb MD; Location: [facility] [place] [facility]; Service: CARDIAC CATHETERIZATION 08/11/2014 EF: 55% CARDIAC [...] EST Heart Disease Management Nurse Progress Note [facility] OFFICE 04/20/20 Minh Askewrich 1945 Congestive Heart [...] EDT Heart Disease Management Nurse Progress Note [facility] OFFICE 11/30/18 Minh Corbin Lisa 1945 Congestive [...] some increase in edema, states he had irish last night. Ed states he has no [...] AM EST Telephone Visit Via Phone Call [facility] [address] [facility] OFFICE [address] [facility] [id number] Telephone Visit [facility] 03/26/2020 Lenin Ramirez MD Provider Location: [place] Patient Location Straightening Machine Feeder: None Patient Location: Patient's Home Patient: Minh [...] there are inherent diagnostic limitations compared to [id number] evaluations. We elected toproceed with the telephone [...] were made today. Coronary artery disease involving benton coronary artery of benton heart without angina pectoris - Primary He has no angina no other symptoms suggestive of progressive ischemic disease. Relevant Medications rosuvastatin (Crestor) 10 MG tablet carvediloL (COREG) 25 MG tablet CHF (congestive heart failure) ([facility]) I am extremely pleased with how [...] EDT Heart Disease Management Nurse Progress Note [facility] OFFICE 06/19/20 Minh Gonzalez 1945 [...] Will continue to monitor kidneys through his Swine Nutritionist. Diagnoses and all orders for this visit: [...] Documents on File Type Date Recorded Patient Mathematical Engineering Technician Expl anation Advance Directives and Livin g Will Advance Directives and Livin g Will 05/04/2018 12:00 AM Documents on File Type Date Recorded Patient Mathematical Engineering Technician Expl anation Advance Directives and Livin g Will Advance Directives and Livin g Will 05/04/2018 12:00 AM Documents on File Type Date Recorded Patient Mathematical Engineering Technician Expl anation Advance Directives and Livin g [...] Documents on File Type Date Recorded Patient Mathematical Engineering Technician Expl anation Advance Directives and Livin g [...] Documents on File Type Date Recorded Patient Mathematical Engineering Technician Expl anation Advance Directives and Livin g Will Advance Directives and Livin g Will 10/26/2020 9:39 AM Documents on File Type Date Recorded Patient Mathematical Engineering Technician Expl anation Advance Directives and Livin g Will Advance Directives and Livin g Will 11/23/2020 2:00 PM Documents on File Type Date Recorded Patient Mathematical Engineering Technician Expl anation Advance Directives and Livin g Will Advance Directives and Livin g Will 11/23/2020 2:00 PM Documents on File Type Date Recorded Patient Mathematical Engineering Technician Expl anation Advance Directives and Livin g Will Advance Directives and Livin g Will 01/13/2021 2:47 PM Documents on File Type Date Recorded Patient Mathematical Engineering Technician Expl anation Advance Directives and Livin g Will Advance Directives and Livin g Will 01/13/2021 2:47 PM Documents on File Type Date Recorded Patient Mathematical Engineering Technician Expl anation Advance Directives and Livin g [...] Documents on File Type Date Recorded Patient Mathematical Engineering Technician Expl anation Advance Directives and Livin g Will Advance Directives and Livin g Will 01/18/2021 2:47 PM Latest Code Status on File Code Status Date Activated Date Inactivated Comments Full Code 01/18/2021 9:08 AM 01/19/2021 5:39 PM Full Code 09/04/2020 1:22 PM 09/10/2020 1:54 PM Documents on File Type Date Recorded Patient Mathematical Engineering Technician Expl anation Advance Directives and Livin g Will Advance Directives and Livin g Will 02/03/2021 2:47 PM Documents on File Type Date Recorded Patient Mathematical Engineering Technician Expl anation Advance Directives and Livin g Will Advance Directives and Livin g Will 02/03/2021 2:47 PM Documents on File Type Date Recorded Patient Mathematical Engineering Technician Expl anation Advance Directives and Living Will Advance Directives and Living Will 02/22/2021 2:47 PM NO COPY IN SOARIAN Documents on File Type Date Recorded Patient Mathematical Engineering Technician Expl anation Advance Directives and Living Will [...] Documents on File Type Date Recorded Patient Mathematical Engineering Technician Expl anation Power of Lean Consultant Latest Code Status on File Code Status [...] Documents on File Type Date Recorded Patient Mathematical Engineering Technician Expl anation Power of Lean Consultant Latest Code Status on File Code Status [...] Closed Cardiology Diagnoses Coronary artery disease involving benton coronary artery of benton heart without angina pectoris Essential hypertension Ventricular tachycardia (paroxysmal) (HCC) Procedures Echocardiogram complete Lenin Ramirez MD [address] [facility] [address] [place] [address] Reason Comments Follow-up s/p d/c [facility]. new ons et CHF Medication Management pt is to start Exf orge 5/320 mg tablet. 1 tablet PO QD Status Reason Specialty Diagnoses / Procedures Referre d By Contact Referred To Contact Closed Radiology Diagnoses ELLIOTT (dyspnea on exertion) Procedures NM Myocardial Perfusion Multiple SPECT Lenin Ramirez MD [address] [facility] [address] [place] [address] Reason Comments Follow-up abn SPECT. Hypertension pt [...] Echocardiogram complete Park Hawk, IGOR [address] [facility] [address] [place] [id number] Reason Comments Follow-up 6 mo f/u. no [...] Surgery Diagnoses Bilateral pleural effusion Park Hawk, COMMUNITY LIVING INSTRUCTOR [address] [place] [address] Michael Quinn MD [address] [facility] [place] [address] [place] [address] Referral ID Status Reason Start Date Expiration Date V isits Requested Visits Authorized [id number] Closed Specialty Services Required/Khalida ent's Best Interest [...] System, Provider Not In Sherry George, DO [facility] [place] [address] Referral ID Status Reason Start Date Expiration Date Visits Re quested Visits Authorized [id number] Closed 03/23/2022 03/23/2023 1 1 Reason Comments Fatigue Specialty Diagnoses / Procedures Referred By Alisson t Referred To Contact Referral ID Status Reason Start Date Expiration Date Visits Re quested Visits Authorized [id number] 1 1 Reason Comments Medication Refill Reason [...] concerning. He is scheduled to see a tool design engineer next week to have this evaluated further. [...] today. Associated Problem(s): Coronary artery disease involving benton coronary artery of benton heart without angina pectoris As ischemic status [...] weeks. Associated Problem(s): Coronary artery disease involving benton coronary artery of benton heart without angina pectoris Ed continues doing well from an ischemic standpoint with no angina no EKG evidence of disease progression. I made no changes in his regimen today. in this encounter Associated Problem(s): CHF (congestive heart failure) (HCC) Hospitalized at [facility] earlier this year with successful diuresis. Known CKD, stage 3 and follows with Nephrology, Dr. Christiansen, in [place]. Recent stress testing revealed substantial decline in EF. Ed states he does have ELLIOTT, now with moderate exertion, it has improved from the ELLIOTT he was experiencing with minimal exertion. Ed continues to have bilateral lower leg edema which improves overnight and increases as his day goes on. He is wearing compression stockings daily. 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 Associated Problem(s): MARCELO on CPAP Currently using CPAP. States is struggling to adjust to the device. Is using a nasal pillow. I suggested that he contact the [employer] company to discuss other device options to improve his comfort and compliance. Associated Problem(s): Coronary artery disease involving benton coronary artery of benton heart without angina pectoris Long-standing CAD with Hx UT in 2005 Cath 2015: Discrete 40% proximal [...] medicines. Associated Problem(s): Coronary artery disease involving benton coronary artery of benton heart without angina pectoris He continues doing [...] encounter Associated Problem(s): CHF (congestive heart failure) ([facility]) Ed's stress test in July 2018 showed [...] breathing difficulty. 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 Associated Problem(s): Coronary artery disease involving benton coronary artery of benton heart without angina pectoris Long-standing CAD with [...] basis. Associated Problem(s): Coronary artery disease involving benton coronary artery of benton heart without angina pectoris He has no [...] DATE CREATED AUTHOR AUTHOR'S ORGANIZ ATION 06/07/2019 [employer] DATE CREATED AUTHOR AUTHOR'S ORGANIZ ATION 10/04/2019 [facility] DATE CREATED AUTHOR AUTHOR'S ORGANIZ ATION 08/07/2020 [facility] DATE CREATED AUTHOR AUTHOR'S ORGANIZ ATION 05/08/2021 [facility] DATE CREATED AUTHOR AUTHOR'S ORGANIZ ATION 05/23/2021 [facility] DATE CREATED AUTHOR AUTHOR'S ORGANIZ ATION 08/06/2021 [facility] DATE CREATED AUTHOR AUTHOR'S ORGANIZ ATION 11/24/2021 [facility] DATE CREATED AUTHOR AUTHOR'S ORGANIZ ATION 05/01/2022 [facility] DATE CREATED AUTHOR AUTHOR'S ORGANIZ ATION 12/01/2022 [facility] DATE CREATED AUTHOR AUTHOR'S ORGANIZ ATION 12/04/2022 [facility] DATE CREATED AUTHOR AUTHOR'S ORGANIZ ATION 03/23/2023 [facility] DATE CREATED AUTHOR AUTHOR'S ORGANIZ ATION 03/26/2023 [facility] Care Teams (unrecognized sec tion and content) Roll Cleaner Relationship Specialty Start Date End Date Zack Olmos MD [address] [place] [address] [phone] PCP - General Family Medicine 08/11/14 Roll Cleaner Relationship Specialty Start Date End Date Zack Olmos MD [address] [place] [address] [id number] PCP - General Family Medicine 08/11/14 Roll Cleaner Relationship Specialty Start Date End Date Zack Olmos MD [address] [place] [address] [phone] PCP - General Family Medicine 08/11/14 Roll Cleaner Relationship Specialty Start Date End Date Zack Olmos MD [address] [place] [address] [phone] PCP - General Family Medicine 08/11/14 Roll Cleaner Relationship Specialty Start Date End Date Zack Olmos MD [address] [place] [address] [phone] PCP - General Family Medicine 08/11/14 Roll Cleaner Relationship Specialty Start Date End Date Zack Olmos MD [address] [place] [address] [id number] PCP - General Family Medicine 08/11/14 Roll Cleaner Relationship Specialty Start Date End Date Zack Olmos MD [address] [place] [address] 63414 PCP - General Family Medicine 08/11/14 Roll Cleaner Relationship Specialty Start Date End Date Zack Olmos MD [address] [place] [address] 35566 PCP - General Family Medicine 08/11/14 Roll Cleaner Relationship Specialty Start Date End Date Zack Olmos MD [address] [place] [address] [id number] PCP - General Family Medicine 08/11/14 Roll Cleaner Relationship Specialty Start Date End Date Zack Olmos MD [address] [place] [address] 57621 PCP - General Family Medicine 08/11/14 Roll Cleaner Relationship Specialty Start Date End Date Zack Olmos MD [address] [place] [address] 98531 PCP - General Family Medicine 08/11/14 Roll Cleaner Relationship Specialty Start Date End Date Zack Olmos MD [address] [place] [address] 54971 PCP - General Family Medicine 08/11/14 Roll Cleaner Relationship Specialty Start Date End Date Zack Olmos MD [address] [place] [address] [phone] PCP - General Family Medicine 08/11/14 Roll Cleaner Relationship Specialty Start Date End Date Zack Olmos MD [address] [place] [address] [phone] PCP - General Family Medicine 08/11/14 Roll Cleaner Relationship Specialty Start Date End Date Zack Olmos MD [address] [place] [address] [phone] PCP - General Family Medicine 08/11/14 Roll Cleaner Relationship Specialty Start Date End Date Zack Olmos MD [address] [place] [address] 28615 PCP - General Family Medicine 08/11/14 Roll Cleaner Relationship Specialty Start Date End Date Zack Olmos MD [address] [place] [address] 65722 PCP - General Family Medicine 08/11/14 Roll Cleaner Relationship Specialty Start Date End Date Zack Olmos MD [address] [place] [address] [phone] PCP - General Family Medicine 08/11/14 Roll Cleaner Relationship Specialty Start Date End Date Zack Olmos MD [address] [place] [address] [phone] PCP - General Family Medicine 08/11/14 Roll Cleaner Relationship Specialty Start Date End Date Zack Olmos MD [address] [place] [address] 02195 PCP - General Family Medicine 08/11/14 Roll Cleaner Relationship Specialty Start Date End Date Zack Olmos MD [address] [place] [address] [phone] PCP - General Family Medicine 08/11/14 Roll Cleaner Relationship Specialty Start Date End Date Zack Olmos MD [address] [place] [address] 76514 PCP - General Family Medicine 08/11/14 Roll Cleaner Relationship Specialty Start Date End Date Zack Olmos MD [address] [place] [address] 93214 PCP - General Family Medicine 08/11/14 Roll Cleaner Relationship Specialty Start Date End Date Zack Olmos MD [address] [place] [address] [phone] PCP - General Family Medicine 08/11/14 Roll Cleaner Relationship Specialty Start Date End Date Zack Olmos MD [address] [place] [address] 24477 PCP - General Family Medicine 08/11/14 Roll Cleaner Relationship Specialty Start Date End Date Zack Olmos MD [address] [place] [address] 05851 PCP - General Family Medicine 08/11/14 Roll Cleaner Relationship Specialty Start Date End Date Zack Olmos MD [address] [place] [address] 60777 PCP - General Family Medicine 08/11/14 Roll Cleaner Relationship Specialty Start Date End Date Zack Olmos MD [address] [place] [address] 93033 PCP - General Family Medicine 08/11/14 Roll Cleaner Relationship Specialty Start Date End Date Zack Olmos MD [address] [place] [address] [phone] PCP - General Family Medicine 08/11/14 Roll Cleaner Relationship Specialty Start Date End Date Zack Olmos MD [address] [place] [address] [id number] PCP - General Family Medicine 08/11/14 Roll Cleaner Relationship Specialty Start Date End Date Zack Olmos MD [address] [place] [address] [phone] PCP - General Family Medicine 08/11/14 Roll Cleaner Relationship Specialty Start Date End Date Zack Olmos MD [address] [place] [address] [phone] PCP - General Family Medicine 08/11/14 Андрей Pizano MD [address] [facility] [address] [place] [address] Referring Physician General Surgery 03/22/22 Roll Cleaner Relationship Specialty Start Date End Date Zack Olmos MD [address] [place] [address] [phone] PCP - General Family Medicine 08/11/14 Lenin Ramirez MD [address] [facility] [address] [place] [address] Consulting Physician Interventional Cardiology 04/06/22 Sherry George, DO [address] [place] [address] Consulting Physician General Surgery 04/06/22 Андрей Pizano MD [address] [facility] I[address]ds[address] [place] [address] Referring Physician General Surgery 03/22/22 Roll Cleaner Relationship Specialty Start Date End Date Zack Olmos MD [address] [place] [address] PCP - General Family Medicine 08/11/14 Lenin Ramirez MD [address] [place] [address] Consulting Physician Interventional Cardiology 04/06/22 Sherry George, DO [address] [place] [address] Consulting Physician General Surgery 04/06/22 Андрей Pizano MD [address] [facility] Ngtik[address] [place] [address] Referring Physician General Surgery 03/22/22 Roll Cleaner Relationship Specialty Start Date End Date Zack Olmos MD [address] [place] [address] PCP - General Family Medicine 08/11/14 Lenin Ramirez MD [address] [facility] [address] [place] [address] Consulting Physician Interventional Cardiology 04/06/22 Sherry George DO [address] [place] [address] Consulting Physician General Surgery 04/06/22 Андрей Pizano MD [address] [facility] [address] [place] [address] Referring Physician General Surgery 03/22/22 Roll Cleaner Relationship Specialty Start Date End Date Zack Olmos MD [address] [place] [address] PCP - General Family Medicine 08/11/14 Lenin Ramirez MD [address] [place] [address] Consulting Physician Interventional Cardiology 04/06/22 Sherry George DO [address] [place] [address] Consulting Physician General Surgery 04/06/22 Андрей Pizano MD [address] [facility] Mwedk[address] [place] [address] Referring Physician General Surgery 03/22/22 Roll Cleaner Relationship Specialty Start Date End Date Zack Olmos MD [address] [place] [address] PCP - General Family Medicine 08/11/14 Lenin Ramirez MD [address] [facility] [address] [place] [address] Consulting Physician Interventional Cardiology 04/06/22 Sherry George DO [address] [place] [address] Consulting Physician General Surgery 04/06/22 Андрей Pizano MD [address] [facility] Oxacc[address] [place] [address] Referring Physician General Surgery 03/22/22 Roll Cleaner Relationship Specialty Start Date End Date Zack Olmos MD [address] [place], [place] [phone] PCP - General Family Medicine 08/11/14 Lenin Ramirez MD [address] [facility] [address] [place] [address] Consulting Physician Interventional Cardiology 04/06/22 Sherry George DO [address] [place] [address] Consulting Physician General Surgery 04/06/22 Андрей Pizano MD [address] [facility] Dq[address] [place] [address] Referring Physician General Surgery 03/22/22 Roll Cleaner Relationship Specialty Start Date End Date Zack Olmos MD [address] [place] [address] PCP - General Family Medicine 08/11/14 Lenin Ramirez MD [address] [facility] [address] [place] [address] Consulting Physician Interventional Cardiology 04/06/22 Sherry George DO [address] [place] [address] Consulting Physician General Surgery 04/06/22 Андрей Pizano MD [address] [facility] Nfist[address] [place] [address] Referring Physician General Surgery 03/22/22 Roll Cleaner Relationship Specialty Start Date End Date Zack Olmos MD [address] [place] [address] PCP - General Family Medicine 08/11/14 Lenin Ramirez MD [address] [facility] [address] [place] [address] Consulting Physician Interventional Cardiology 04/06/22 Sherry George DO [address] [place] [address] Consulting Physician General Surgery 04/06/22 Андрей Pizano MD [address] [facility] [id number] [place] [address] Referring Physician General Surgery 03/22/22 Roll Cleaner Relationship Specialty Start Date End Date Zack Olmos MD [address] [place] [address] PCP - General Family Medicine 08/11/14 Lenin Ramirez MD [address] [place] [address] Consulting Physician Interventional Cardiology 04/06/22 Sherry George DO [address] [place] [address] Consulting Physician General Surgery 04/06/22 Андрей Pizano MD [address] [facility] B[address]ulv[address] [place] [address] Referring Physician General Surgery 03/22/22 Roll Cleaner Relationship Specialty Start Date End Date Zack Olmos MD [address] [place] [address] PCP - General Family Medicine 08/11/14 Lenin Ramirez MD [address] [place] [address] Consulting Physician Interventional Cardiology 04/06/22 Sherry George DO [address] [place] [address] Consulting Physician General Surgery 04/06/22 Андрей Pizano MD [address] [facility] [id number] [place] [address] Referring Physician General Surgery 03/22/22 Roll Cleaner Relationship Specialty Start Date End Date Zack Olmos MD [address] [place] [address] PCP - General Family Medicine 08/11/14 Lenin Ramirez MD [address] [place] [address] Consulting Physician Interventional Cardiology 04/06/22 Sherry George DO [address] [place] [address] Consulting Physician General Surgery 04/06/22 Андрей Pziano MD [address] [facility] [id number] [place] [address] Referring Physician General Surgery 03/22/22 Roll Cleaner Relationship Specialty Start Date End Date Zack Olmos MD [address] [place] [address] PCP - General Family Medicine 08/11/14 Lenin Ramirez MD [address] [place] [address] Consulting Physician Interventional Cardiology 04/06/22 Sherry George DO [address] [place] [address] Consulting Physician General Surgery 04/06/22 Андрей Pizano MD [address] [facility] Oevga[address] [place] [address] Referring Physician General Surgery 03/22/22 Roll Cleaner Relationship Specialty Start Date End Date Zack Olmos MD [address] [place] [address] PCP - General Family Medicine 08/11/14 Lenin Ramirez MD [address] [place] [address] Consulting Physician Interventional Cardiology 04/06/22 Sherry George DO [address] [place] [address] Consulting Physician General Surgery 04/06/22 Андрей Pizano MD [address] [facility] [id number] [place] [address] Referring Physician General Surgery 03/22/22 Roll Cleaner Relationship Specialty Start Date End Date Zack Olmos MD [address] [place] [address] PCP - General Family Medicine 08/11/14 Lenin Ramirez MD [address] [place] [address] Consulting Physician Interventional Cardiology 04/06/22 Sherry George DO [address] [place] [address] Consulting Physician General Surgery 04/06/22 Андрей Pizano MD [address] [facility] Ctprc[address] [place] [address] Referring Physician General Surgery 03/22/22 Roll Cleaner Relationship Specialty Start Date End Date Zack Olmos MD [address] [place] [address] PCP - General Family Medicine 08/11/14 Lenin Ramirez MD [address] [place] [address] Consulting Physician Interventional Cardiology 04/06/22 Sherry George DO [address] [place] [address] Consulting Physician General Surgery 04/06/22 Андрей Pizano MD [address] [facility] Uoftj[address] [place] [address] Referring Physician General Surgery 03/22/22 Roll Cleaner Relationship Specialty Start Date End Date Zack Olmos MD [address] [place] [address] PCP - General Family Medicine 08/11/14 Lenin Ramirez MD [address] [place] [address] Consulting Physician Interventional Cardiology 04/06/22 Sherry George DO [address] [place] [address] Consulting Physician General Surgery 04/06/22 Андрей Pizano MD [address] [facility] [id number] [place] [address] Referring Physician General Surgery 03/22/22 Roll Cleaner Relationship Specialty Start Date End Date Zack Olmos MD [address] [place] [address] PCP - General Family Medicine 08/11/14 Lenin Ramirez MD [address] [place] [address] Consulting Physician Interventional Cardiology 04/06/22 Sherry George DO [address] [place] [address] Consulting Physician General Surgery 04/06/22 Андрей Pizano MD [address] [facility] F[address] [place] [address] Referring Physician General Surgery 03/22/22 Roll Cleaner Relationship Specialty Start Date End Date Zack Olmos MD [address] [place] [address] PCP - General Family Medicine 08/11/14 Lenin Ramirez MD [address] [place] [address] Consulting Physician Interventional Cardiology 04/06/22 Sherry George DO [address] [place] [address] Consulting Physician General Surgery 04/06/22 Андрей Pizano MD [address] [facility] [address] [place] [address] Referring Physician General Surgery 03/22/22 Roll Cleaner Relationship Specialty Start Date End Date Zack Olmos MD [address] [place] [address] PCP - General Family Medicine 08/11/14 Lenin Ramirez MD [address] [place] [address] Consulting Physician Interventional Cardiology 04/06/22 Sherry George DO [address] [place] [address] Consulting Physician General Surgery 04/06/22 Андрей Pizano MD [facility] [facility] [address] [place] [address] Referring Physician General Surgery 03/22/22 Roll Cleaner Relationship Specialty Start Date End Date Zack Olmos MD [address] [place] [address] PCP - General Family Medicine 08/11/14 Lenin Ramirez MD [address] [place] [address] Consulting Physician Interventional Cardiology 04/06/22 Sherry George DO [address] [place] [address] Consulting Physician General Surgery 04/06/22 Андрей Pizano MD 1761 [facility] [address] [place] [address] Referring Physician General Surgery 03/22/22 Roll Cleaner Relationship Specialty Start Date End Date Zack Olmos MD [address] [place] [address] PCP - General Family Medicine 08/11/14 Lenin Ramirez MD [address] [facility] [address] [place] [address] Consulting Physician Interventional Cardiology 04/06/22 Sherry George DO [address] [place] [address] Consulting Physician General Surgery 04/06/22 Андрей Pizano MD [address]61 [facility] [address] [place] [address] Referring Physician General Surgery 03/22/22 Roll Cleaner Relationship Specialty Start Date End Date Zack Olmos MD [address] [place], [place] [id number] PCP - General Family Medicine 08/11/14 Lenin Ramirez MD [address] [facility] [address] [place] [address] Consulting Physician Interventional Cardiology 04/06/22 Sherry George DO [address] [place] [address] Consulting Physician General Surgery 04/06/22 Андрей Pizano MD [address]61 [facility] [address]ru[address]36 [place] [address] Referring Physician General Surgery 03/22/22 Roll Cleaner Relationship Specialty Start Date End Date Zack Olmos MD [address] [place] [address] PCP - General Family Medicine 08/11/14 Lenin Ramirez MD [address] [facility] [address] [place] [address] Consulting Physician Interventional Cardiology 04/06/22 Sherry George DO [address] [place] [address] Consulting Physician General Surgery 04/06/22 Андрей Pizano MD [address]61 [facility] [address] [place] [address] Referring Physician General Surgery 03/22/22 Roll Cleaner Relationship Specialty Start Date End Date Zack Olmos MD [address] [place] [address] PCP - General Family Medicine 08/11/14 Lenin Ramirez MD [address] [facility] [address] [place] [address] Consulting Physician Interventional Cardiology 04/06/22 Sherry George DO [address] [place] [address] Consulting Physician General Surgery 04/06/22 Андрей Pizano MD 1761 [facility] [address] [place] [address] Referring Physician General Surgery 03/22/22 Roll Cleaner Relationship Specialty Start Date End Date Zack Olmos MD [address] [place] [address] PCP - General Family Medicine 08/11/14 Lenin Ramirez MD [address] [facility] [address] [place] [address] Consulting Physician Interventional Cardiology 04/06/22 Sherry George DO [address] [place] [address] Consulting Physician General Surgery 04/06/22 Андрей Pizano MD [address]61 [facility] [address] [place] [address] Referring Physician General Surgery 03/22/22 Roll Cleaner Relationship Specialty Start Date End Date Zack Olmos MD [address] [place], [place] [id number] PCP - General Family Medicine 08/11/14 Lenin Ramirez MD [address] [facility] [address] [place] [address] Consulting Physician Interventional Cardiology 04/06/22 Sherry George DO [address] [place] [address] Consulting Physician General Surgery 04/06/22 Андрей Pizano MD [address]61 [facility] [address] [place] [address] Referring Physician General Surgery 03/22/22 Roll Cleaner Relationship Specialty Start Date End Date Zack Olmos MD [address] [place] [address] PCP - General Family Medicine 08/11/14 Lenin Ramirez MD [address] [place] [address] Consulting Physician Interventional Cardiology 04/06/22 Sherry George DO [address] [place] [address] Consulting Physician General Surgery 04/06/22 Андрей Pizano MD 1761 [facility] [address] [place] [address] Referring Physician General Surgery 03/22/22 Roll Cleaner Relationship Specialty Start Date End Date Zack Olmos MD [address] [place], [place] [phone] PCP - General Family Medicine 08/11/14 Lenin Ramirez MD [address] [place] [address] Consulting Physician Interventional Cardiology 04/06/22 Sherry George DO [address] [place] [address] Consulting Physician General Surgery 04/06/22 Андрей Pizano MD [address] [facility] Drzej[address] [place] [address] Referring Physician General Surgery 03/22/22 Roll Cleaner Relationship Specialty Start Date End Date Zack Olmos MD [address] [place] [address] PCP - General Family Medicine 08/11/14 Lenin Ramirez MD [address] [place] [address] Consulting Physician Interventional Cardiology 04/06/22 Sherry George DO [address] [place] [address] Consulting Physician General Surgery 04/06/22 Андрей Pizano MD [address] [facility] [address] [place] [address] Referring Physician General Surgery 03/22/22 Roll Cleaner Relationship Specialty Start Date End Date Zack Olmos MD [address] [place] [address] PCP - General Family Medicine 08/11/14 Lenin Ramirez MD [address] [facility] [address] [place] [address] Consulting Physician Interventional Cardiology 04/06/22 Sherry George DO [address] [place] [address] Consulting Physician General Surgery 04/06/22 Андрей Pizano MD [address] [facility] [address] [place] [address] Referring Physician General Surgery 03/22/22 Roll Cleaner Relationship Specialty Start Date End Date Zack Olmos MD [address] [place] [address] PCP - General Family Medicine 08/11/14 Lenin Ramirez MD 765 [facility] [address] [place] [address] Consulting Physician Interventional Cardiology 04/06/22 Sherry George DO [address] [place] [address] Consulting Physician General Surgery 04/06/22 Андрей Pizano MD [address] [facility] [address] [place] [address] Referring Physician General Surgery 03/22/22 Roll Cleaner Relationship Specialty Start Date End Date Zack Olmos MD [address] [place] [address] PCP - General Family Medicine 08/11/14 Lenin Ramirez MD [address] [place] [address] [address] [place] [address] Consulting Physician Interventional Cardiology 04/06/22 Sherry George DO [address] [place] [address] Consulting Physician General Surgery 04/06/22 Андрей Pizano MD [address] [facility] [address]hs[address] [place] [address] Referring Physician General Surgery 03/22/22 Roll Cleaner Relationship Specialty Start Date End Date Zack Olmos MD [address] [place], [place] [phone] PCP - General Family Medicine 08/11/14 Lenin Ramirez MD [address] [facility] [address] [place] [address] Consulting Physician Interventional Cardiology 04/06/22 Sherry George DO [address] [place] [address] Consulting Physician General Surgery 04/06/22 [place] [address] [place] [address] [facility] [address] [place] [address] Referring Physician General Surgery 03/22/22 Roll Cleaner Relationship Specialty Start Date End Date Zack Olmos MD [address] [place] [address] PCP - General Family Medicine 08/11/14 Lenin Ramirez MD [address] [facility] [address] [place] [address] Consulting Physician Interventional Cardiology 04/06/22 Sherry George DO [address] [place] [address] Consulting Physician General Surgery 04/06/22 Андрей Pizano MD [address]61 [facility] [id number] [place] [address] Referring Physician General Surgery 03/22/22 Roll Cleaner Relationship Specialty Start Date End Date Zack Olmos MD [address] [place] [id number] PCP - General Family Medicine 08/11/14 Lenin Ramirez MD [address] [facility] [address] [place] [address] Consulting Physician Interventional Cardiology 04/06/22 Sherry George DO [address] [place] [address] Consulting Physician General Surgery 04/06/22 Андрей Pizano MD [address]61 [facility] [address] [place] [address] Referring Physician General Surgery 03/22/22 Roll Cleaner Relationship Specialty Start Date End Date Zakc Olmos MD [address] [place] [address] PCP - General Family Medicine 08/11/14 Lenin Ramirez MD [address] [facility] [address] [place] [address] Consulting Physician Interventional Cardiology 04/06/22 Sherry George DO [address] [place] [address] Consulting Physician General Surgery 04/06/22 Андрей Pizano MD [address]61 [facility] [address] [place] [address] Referring Physician General Surgery 03/22/22 Roll Cleaner Relationship Specialty Start Date End Date Zack Olmos MD [address] [place] [address] PCP - General Family Medicine 08/11/14 Lenin Ramirez MD [address] [place] [address] Consulting Physician Interventional Cardiology 04/06/22 Sherry George DO [address] [place] [address] Consulting Physician General Surgery 04/06/22 Андрей Pizano MD 1761 [facility] [address] [place] [address] Referring Physician General Surgery 03/22/22 FOR RECORDS [...] BE BASED ON THE PRIMARY CLINICAL RECORDS. [employer] provides no warranty or guarantee of the accuracy or completeness of information in this document.
[2023-04-22] MEDS: Gabapentin 100 MG Capsule 200 MG PO (20:33)
[2023-04-22] MEDS: Heparin Injection (Vial) 5,000 UNIT/ML VIAL 5000 UNIT SC (20:33)
[2023-04-22] MEDS: Oseltamivir Phosphate 30 MG Capsule PO (20:34)
[2023-04-22] MEDS: Atorvastatin Calcium 20 MG Tablet PO (20:34)
[2023-04-22] MEDS: guaiFENesin 1,200 MG Tablet 1200 MG PO (20:34)
[2023-04-22] MEDS: 0.9% Saline Lock 10 ML Syringe IV (20:35)
[2023-04-23] VITALS (15 sets, daily range): BP systolic 94–125; BP diastolic 58–87; PULSE 80–101; RESP 12–23; TEMP 36.1–37.1; O2SAT 94–97; BMI 29.2
[2023-04-23] MEDS: 0.9% Saline Lock 10 ML Syringe IV ×2 (05:51→14:23)
[2023-04-23] MEDS: Levothyroxine 50 MCG Tablet PO (05:51)
[2023-04-23] MEDS: Ipratropium/Albuterol Sulfate 3 ML AMPUL.NEB INHALATION ×4 (07:12→19:41)
[2023-04-23 07:32] LABS: Absolute Lymphocyte Count 0.19 X10^3/uL (0.83-4.51); Absolute Neutrophil Count 7.1 X10^3/uL (2.0-7.7); Basophil# 0.01 X10^3/uL; Basophil% 0.1 % (0-1); Hematocrit 31.5 % (40-54); Hemoglobin 9.8 g/dL (13.0-16.5); Lymphocyte # 0.19 X10^3/ul (0.83-4.51); Lymphocyte % 2.5 % (19-41); Mean Corp Hgb Conc 31.1 g/dL (32-36); Mean Corpuscular Hgb 33.6 pg (27.0-32.0); Mean Corpuscular Volume 107.9 fL (80-94); Mean Platelet Vol. 9.5 fl (6.2-12.0); Monocyte# 0.18 X10^3/uL; Monocyte% 2.4 % (0-10); NRBC Flagged by Analyzer 0 % (0-5); Neutrophil # 7.06 X10^3/uL (2.7-7.7); Neutrophil % 94.7 % (47-70); POSITIVE DIFFERENTIAL YES; Platelet Count 108 K/mm3 (150-450); RBC Distribution Width CV 14.7 % (11.6-14.6); RBC Distribution Width SD 58.5 fl (35.1-43.9); Red Blood Count 2.92 M/mm3 (4.6-6.2); White Blood Count 7.5 K/mm3 (4.4-11.0)
--- NOTE | 2023-04-23 07:56 | PN.HOSP_ITS ---
Reason for Visit Reason for Visit: Diagnoses Atherosclerotic heart disease of [place] coronary artery without angina pectoris (04/22/23) Heart failure, unspecified (04/22/23) Chronic obstructive pulmonary disease with (acute) exacerbation (04/22/23) Gastro-esophageal reflux disease without esophagitis (04/22/23) End stage renal disease (04/22/23) Hypoxemia (04/22/23) Difficulty in walking, not elsewhere classified (04/22/23) Weakness (04/22/23) Personal history of other diseases of the respiratory system (04/22/23) Dependence on renal dialysis (04/22/23) Subjective Subjective Patient is a 77-year-old gentleman recently discharged from the hospital following hospitalization for acute influenza A infection presented back to the emergency department 3 days following his discharge with progressive shortness of breath. An assessment of acute hypoxia secondary to COPD and CHF made readmitted to monitored bed for further management Objective Data Objective Data Vital Signs: Vital Signs Temp Pulse Resp BP Pulse Ox O2 Del Method O2 Flow Rate 97.7 F L 95 18 94/58 L 95 High Flow 8 04/23/23 03:15 04/23/23 07:12 04/23/23 07:12 04/23/23 03:15 04/23/23 07:12 04/23/23 07:12 04/23/23 07:12 FiO2 40 04/23/23 03:38 Oxygen Flow Rate (L/min) 8 Oxygen Delivery Method High Flow Weight: 84.9 kg Body Mass Index (BMI) 29.2 Intake & Output: Intake and Output for Last 24 Hours 04/21/23 04/22/23 04/23/23 23:59 23:59 23:59 Intake Total 150 / 150 Balance 150 / 150 Lab / Micro Data 04/23/23 07:07 04/23/23 07:07 Labs: Laboratory Results - last 24 hr 04/22/23 14:32: WBC 10.2, RBC 3.10 L, Hgb 10.5 L, Hct 34.1 L, MCV 110.0 H, MCH 33.9 H, MCHC 30.8 L, RDW Std Deviation 60.7 H, RDW Coeff of Nick 15.0 H, Plt Count 146 L, MPV 9.3, Immature Gran % (Auto) 0.300, Neut % (Auto) 89.2 H, Lymph % (Auto) 3.4 L, [place] % (Auto) 7.1, Eos % (Auto) 0.0, Baso % (Auto) 0.0, Absolute Neuts (auto) 9.1 H, Absolute Lymphs (auto) 0.35 L, Nucleated RBC % 0.2, Sodium 135 L, Potassium 4.2, Chloride 97 L, Carbon Dioxide 34.0 H, Anion Gap 4 L, BUN 46 H, Creatinine 3.99 H, Estim Creat Clear Calc 16.43, Est GFR (MDRD) Af Amer 19 L, Est GFR (MDRD) Non-Af 16 L, BUN/Creatinine Ratio 11.5, Glucose 115 H, Lactic Acid 1.7, Calcium 8.8, B-Natriuretic Peptide 2953.2 H 04/23/23 07:07: WBC 7.5, RBC 2.92 L, Hgb 9.8 L, Hct 31.5 L, MCV 107.9 H, MCH 33.6 H, MCHC 31.1 L, RDW Std Deviation 58.5 H, RDW Coeff of Nick 14.7 H, Plt Count 108 L, MPV 9.5, Immature Gran % (Auto) 0.300, Neut % (Auto) 94.7 H, Lymph % (Auto) 2.5 L, [place] % (Auto) 2.4, Eos % (Auto) 0.0, Baso % (Auto) 0.1, Absolute Neuts (auto) 7.1, Absolute Lymphs (auto) 0.19 L, Nucleated RBC % 0 ABG Data ABG results: ABG 04/22/23 14:54 Specimen Type ART Sample Site R Radial pH 7.37 Bicarbonate Actual 30.6 H Total CO2 32 Base Excess 5 H O2 Saturation 96 O2 % 8.0 ABG pCO2 53.2 H ABG pO2 89 Sathya Test Positive O2 Delivery Device HFNC Vent Mode Not entered Radiography Diagnostic Testing: Radiology Impression Chest X-Ray 04/22/23 15:35 IMPRESSION: Moderate CHF or infiltrates increased Electronically Signed: Wale Babcock MD at 16:26 EST , Physical Exam Narrative GENERAL: cooperative HEENT: Atraumatic; normocephalic EYES; Anicteric, Normal Conjunctiva NECK; supple, normal thyroid, RESPIRATORY: Diminished to auscultation CARDIOVASCULAR: Regular S1 S2, GI: soft, normoactive bowel sounds, : No Renal angle tenderness; EXTREMITIES: No edema, no clubbing, MUSCULOSKELETAL: no muscle wasting NEURO: Awake; no lateralizing signs. SKIN: chronic, superficial ulcer present on the right lower leg, probably venous ulcer. Covered with dressing. PSYCH; Flat affect Assessment & Plan Assessment/Plan (1) COPD with acute exacerbation: (2) CHF (congestive heart failure): (3) Coronary artery disease: (4) ESRD (end stage renal disease) on dialysis: (5) Generalized weakness: (6) GERD (gastroesophageal reflux disease): (7) History of influenza: (8) Hypoxia: (9) Unable to ambulate: PLAN: Plan Patient is a 77-year-old gentleman recently discharged from the hospital following hospitalization for acute influenza A infection presented back to the emergency department 3 days following his discharge with progressive shortness of breath. An assessment of acute hypoxia secondary to COPD and CHF made readmitted to monitored bed for further management 1. Acute hypoxia ? Secondary to combination of CHF with acute exacerbation as well as COPD exacerbation per stated by patient recent influenza A infection 2.COPD with acute exacerbation ? Present stated by acute influenza A bronchitis management bronchodilator treatment systemic steroid antibiotic therapy as well as Tamiflu for his acute influenza A 3. Acute on chronic congestive heart failure with reduced ejection fraction ? Echo from 2021 demonstrated EF of 25 to 30%. Plan is to manage fluid status with dialysis 4. End-stage renal disease ? On hemodialysis on Wednesdays and Fridays consult placed patient dress operator for dialysis orders 5. Hypothyroidism - Patient is on levothyroxine home dose continued 6. Coronary artery disease ? With previous history of CABG and subsequent stent placement. Patient remains on guideline directed medical therapy 7. Gout ? Symptoms controlled on allopurinol 8. Chronic hypoxic respiratory failure secondary to COPD ? Patient is on 3.5 L at baseline 9. Chronic hypotension ? Patient is on midodrine 10. Paroxysmal A-fib with RVR ? Patient currently being monitored in the progressive care unit. Patient is on amiodarone and carvedilol did continue. Patient was previously on Eliquis discontinued due to to GI bleed 11. Physical deconditioning - Requested for PT OT eval and social media marketing analyst to assist with discharge planning 12. Mild thrombocytopenia ? Monitoring given the fact the patient is on heparin for DVT prophylaxis 13 DVT prophylaxis ? SCDs and heparin Time spent in the patient's overall evaluation,decision-making process, review of diagnostic data, adjustment of management, discussion with other providers, nursing nursing and ancillary staff involved in patient's care documentation, 50 Minutes Charges/Coding Visit Charges Inpatient E&M: 01796 Subs Hosp L3
[2023-04-23 08:02] LABS: Anion Gap 9 (5-15); BUN 59 mg/dL (7-18); BUN/Creat Ratio 12.2 RATIO (10-20); Calcium,Total 8.5 mg/dL (8.5-10.1); Chloride 96 mmol/L (98-107); Creatinine, Serum 4.84 mg/dL (0.70-1.30); EST Glomerular Filtration Rate 13 mL/min (>60); Est Glom Filt Rate - Afr Amer 15 mL/min (>60); Estimated Creatinine Clearance 13.52 ml/min; Glucose 126 mg/dL (74-106); Magnesium 2.1 mg/dL (1.6-2.6); Phosphorus 3.4 mg/dL (2.5-4.9); Potassium 4.9 mmol/L (3.5-5.1); Sodium Level 136 mmol/L (136-145)
[2023-04-23] MEDS: Aspirin 81 MG TAB.CHEW PO (10:30)
[2023-04-23] MEDS: Amiodarone 200 MG Tablet 100 MG PO (10:31)
[2023-04-23] MEDS: Allopurinol 100 MG Tablet PO (10:31)
[2023-04-23] MEDS: Fludrocortisone Acetate 0.1 MG Tablet 0.100000000000000006 MG PO (10:31)
[2023-04-23] MEDS: Sertraline 100 MG Tablet PO (10:32)
[2023-04-23] MEDS: Carvedilol 3.125 MG TABLET PO (10:32)
[2023-04-23] MEDS: guaiFENesin 1,200 MG Tablet 1200 MG PO ×2 (10:32→20:38)
[2023-04-23] MEDS: Heparin Injection (Vial) 5,000 UNIT/ML VIAL 5000 UNIT SC ×2 (10:32→20:38)
[2023-04-23] MEDS: Gabapentin 100 MG Capsule 200 MG PO (20:38)
[2023-04-23] MEDS: Atorvastatin Calcium 20 MG Tablet PO (20:38)
[2023-04-23] MEDS: Oseltamivir Phosphate 30 MG Capsule PO (20:39)
[2023-04-24] VITALS (17 sets, daily range): BP systolic 96–296; BP diastolic 40–80; PULSE 75–98; RESP 12–26; TEMP 36.3–36.6; O2SAT 94–100; BMI 29.1; BMI 28.0
[2023-04-24] MEDS: Levothyroxine 50 MCG Tablet PO (05:43)
[2023-04-24] MEDS: 0.9% Saline Lock 10 ML Syringe IV ×3 (05:43→19:57)
[2023-04-24] MEDS: Sertraline 100 MG Tablet PO (09:15)
[2023-04-24] MEDS: guaiFENesin 1,200 MG Tablet 1200 MG PO ×2 (09:15→19:56)
[2023-04-24] MEDS: Allopurinol 100 MG Tablet PO (09:15)
[2023-04-24] MEDS: Midodrine HCl 5 MG Tablet 10 MG PO (09:15)
[2023-04-24] MEDS: Fludrocortisone Acetate 0.1 MG Tablet 0.100000000000000006 MG PO (09:15)
[2023-04-24] MEDS: Aspirin 81 MG TAB.CHEW PO (09:15)
--- NOTE | 2023-04-24 09:44 | PN.HOSP_ITS ---
Reason for Visit Reason for Visit: Diagnoses Atherosclerotic heart disease of [place] coronary artery without angina pectoris (04/22/23) Heart failure, unspecified (04/22/23) Chronic obstructive pulmonary disease with (acute) exacerbation (04/22/23) Gastro-esophageal reflux disease without esophagitis (04/22/23) End stage renal disease (04/22/23) Hypoxemia (04/22/23) Difficulty in walking, not elsewhere classified (04/22/23) Weakness (04/22/23) Personal history of other diseases of the respiratory system (04/22/23) Dependence on renal dialysis (04/22/23) Subjective Subjective Discussed with the patient's . States the patient normally is on oxygen at home up to 3 L. States that when he goes to the bathroom, he takes the oxygen off and then sits on the toilet. While on the toilet, he appears ashen and his lips were blue but this is pretty much his routine. Overall he is very weak and debilitated and she meantime does use a wheeled walker to help him get around. Seems very weak overall. Objective Data Objective Data Vital Signs: Vital Signs Temp Pulse Resp BP Pulse Ox O2 Del Method O2 Flow Rate 36.4 C L 91 16 108/66 96 Nasal Cannula 3 04/24/23 09:07 04/24/23 09:07 04/24/23 09:07 04/24/23 09:07 04/24/23 09:07 04/24/23 09:07 04/24/23 09:07 FiO2 32 04/24/23 02:01 Oxygen Flow Rate (L/min) 3 Oxygen Delivery Method Nasal Cannula Weight: 84.5 kg Body Mass Index (BMI) 29.1 Intake & Output: Intake and Output for Last 24 Hours 04/22/23 04/23/23 04/24/23 23:59 23:59 23:59 Intake Total 600 / 600 50 / 50 Balance 600 / 600 50 / 50 Lab / Micro Data 04/23/23 07:07 04/23/23 07:07 Physical Exam Const Constitutional Narrative: Listless. Bottom dentures are practically falling out of his mouth. Patient was unable to extract them on his own so had to be removed by hand. Resp normal respiratory effort, no retractions, no use of accessory muscles and clear to auscultation bilaterally Cardio regular rate, regular rhythm, S1 normal heart sound and S2 normal heart sound GI normal to inspection, nondistended, normoactive bowel sounds and soft to palpation Extremity General Extremity: edema bilateral lower extremity Assessment & Plan Assessment/Plan (1) COPD with acute exacerbation: (2) CHF (congestive heart failure): (3) Coronary artery disease: (4) Generalized weakness: (5) History of influenza: PLAN: Plan COPD with acute exacerbation * exacerbated by influenza A. * ontinue methylpred and BDs. Will change Methylpred to prednisone. Influenza A * on tamiflu. Acute on chronic congestive heart failure with reduced ejection fraction * Echo from 2021 demonstrated EF of 25 to 30%. Plan is to manage fluid status with dialysis Chronic conditions: * End-stage renal disease? On hemodialysis on Wednesdays and Fridays consult placed patient cell feed department supervisor for dialysis orders * Hypothyroidism- Patient is on levothyroxine home dose continued * Coronary artery disease? With previous history of CABG and subsequent stent placement. Patient remains on guideline directed medical therapy * Gout? Symptoms controlled on allopurinol * Chronic hypoxic respiratory failure secondary to COPD? Patient is on 3.5 L at baseline * Chronic hypotension? Patient is on midodrine * Paroxysmal A-fib with RVR? [facility] Patient is on amiodarone and carvedilol did continue. Patient was previously on Eliquis discontinued due to to GI bleed Physical deconditioning * Requested for PT OT eval and rn social work to assist with discharge planning * Patient has a baseline poor performance status. Patient was at home with his but is unclear if should be able to adequately care for him at this time. DVT prophylaxis? SCDs and heparin Charges/Coding Visit Charges Inpatient E&M: 00138 Subs Hosp L2
--- NOTE | 2023-04-24 10:37 | PCM.CONS.R ---
Assessment & Plan Assessment/Plan (1) ESRD (end stage renal disease) on dialysis: PLAN: On hemodialysis Monday, Monday, Monday schedule. Last dialysis was Monday. We will arrange for dialysis today. Chest x-ray reviewed, suspected fluid overload. History of congestive heart failure with low ejection fraction. We will give a dose of midodrine, before dialysis. Try for more fluid removal. HPI Consult Data Date of Consult: 04/24/23 HPI Narrative Reason for Consultation: ESRD. HPI Narrative: ANGIE SINGH, is a 77 M who presents To the hospital with complaints of shortness of breath. Nephrology on consultation in view of ESRD. on dialysis Monday, Monday, Monday schedule. He was admitted here last week with influenza pneumonia, discharged home. Came back with shortness of breath and hypoxia. Chest x-ray consistent with fluid overload/infiltrates. Currently admitted for pneumonia/COPD exacerbation/fluid overload. He says he feels okay. At rest no shortness of breath but when he tries to do something, breathing is worse. No significant lower extremity edema. History of congestive heart failure with low ejection fraction. Blood pressure usually runs low, takes midodrine before dialysis. [facility] Medical History (Updated 04/22/23 @ 20:16 by Aide Delarosa) Anemia Anxiety Arthritis Back pain BiPAP (biphasic positive airway pressure) dependence BPH (benign prostatic hyperplasia) Congestive heart failure (CHF) COPD (chronic obstructive pulmonary disease) Coronary artery disease involving coronary bypass graft Coronary atherosclerosis of [place] coronary artery CPAP (continuous positive airway pressure) dependence Depression Emphysema, unspecified End-stage renal disease on hemodialysis Erectile dysfunction ESRD (end stage renal disease) Former smoker GERD (gastroesophageal reflux disease) Gout High cholesterol History of atrial fibrillation History of edema History of heart attack HLD (hyperlipidemia) Hypertension Hypothyroidism Lower GI bleed Lumbar disc disease with radiculopathy Obesity On home oxygen therapy MARCELO (obstructive sleep apnea) Pleural effusion Psychosexual dysfunction with inhibited sexual excitement Sleep apnea Symptomatic anemia Home Medications allopurinol 100 mg tablet 100 mg PO DAILY GOUT 05/03/18 [History Last Taken 04/18/23] nitroglycerin 0.4 mg sublingual tablet 0.4 mg sublingual Q5-15M PRN chest pain 05/03/18 [History Last Taken Unknown] amiodarone 200 mg tablet 100 mg PO DAILY heart 11/19/20 [History Last Taken 04/18/23] rosuvastatin 10 mg tablet (Crestor) 10 mg PO QHS cholesterol 11/19/20 [History Last Taken 04/17/23] ascorbic acid (vitamin C) 500 mg capsule,extended release (Vitamin C) 500 mg PO DAILY supplement 11/23/20 [History Last Taken 04/18/23] gabapentin 100 mg capsule 200 mg PO QHS restless leg 11/04/21 [History Last Taken 04/17/23] midodrine 10 mg tablet 10 mg PO MOWEFR bp 11/04/21 [History Last Taken 03/18/22] levothyroxine 50 mcg tablet 50 mcg PO DAILY thyroid 12/13/21 [History Last Taken 03/18/22] carvedilol 3.125 mg tablet 3.125 mg PO SuTuThSa@1000 #0 tabs 03/23/22 [Rx Last Taken 04/18/23] guaifenesin 600 mg tablet, extended release 12 hr (Mucinex) 600 mg PO BID 06/07/22 [History Last Taken Unknown] albuterol sulfate 2.5 mg/3 mL (0.083 %) solution for nebulization 2.5 mg (3 mL) inhalation 4X/DAY PRN PRN COPD #180 mL 04/04/23 [Rx Last Taken 04/18/23] aspirin 81 mg tablet,delayed release (Adult Aspirin Regimen) 81 mg PO DAILY 04/04/23 [History Last Taken 04/18/23] fluticasone propionate 50 mcg/actuation nasal spray,suspension 2 spray intranasal DAILY PRN ALLERGIES 04/04/23 [History Last Taken Unknown] glycopyrrolate 9 mcg-formoterol 4.8 mcg HFA aerosol inhaler (Bevespi Aerosphere) 2 puff inhalation BID SOB 04/04/23 [History Last Taken Unknown] sertraline 100 mg tablet 100 mg PO DAILY 04/04/23 [History Last Taken Unknown] vitamin B complex-vitamin C-folic acid 0.8 mg tablet (Tawanna-Laura) 1 tab PO Q24H 04/18/23 [History Last Taken Unknown] oseltamivir 30 mg capsule 30 mg PO 2200 #10 caps 04/20/23 [Rx Last Taken Unknown] Allergy/AdvReac Type Severity Reaction Status Date / Time Penicillins Allergy Severe Rash, 105 Verified 04/22/23 14:23 temp amlodipine Allergy itching Verified 04/22/23 14:23 and rash prednisone Allergy Other Verified 04/22/23 14:23 indomethacin AdvReac Intermediate Other Verified 04/22/23 14:23 ropinirole AdvReac Intermediate Other Verified 04/22/23 14:23 trazodone AdvReac Intermediate Other Verified 04/22/23 14:23 aspirin AdvReac Mild rash Verified 04/22/23 14:23 Family History Mother , 84 y.o. Hypertension CVA (cerebral vascular accident) Father , 70 y.o. Heart disease Hodgkin disease Sister , 72 y.o. Heart disease Surgical History H/O left cataract extraction History of cardiac catheterization History of colectomy (~2022) History of colonoscopy History of coronary artery stent placement History of heart artery stent History of heart surgery History of knee replacement procedure of left knee History of open heart surgery (~08/2020) History of total right knee replacement S/P arteriovenous (AV) fistula repair (~12/2020) Social History household members: spouse housing: house pets and animals: No Smoking Status: Former smoker second hand exposure: No alcohol intake: current alcohol intake frequency: holidays/special occasions only ROS ROS Narrative Negative except above Physical Exam Narrative Alert awake oriented x 3 no obvious distress no pallor no icterus no JVD s1s2 no murmurs lungs clear abdomen soft no organomegaly no edema Lab / Micro Data 04/23/23 07:07 04/23/23 07:07
[2023-04-24] MEDS: Ipratropium/Albuterol Sulfate 3 ML AMPUL.NEB INHALATION ×2 (10:49→20:15)
[2023-04-24] MEDS: 0.9% Normal Saline 1,000 ML IV.SOLN. 1000 ML OPERA.SITE (12:19)
[2023-04-24] MEDS: PureFlow B 2K Dialysis Soln 1 BAG 6 BAG PF (12:19)
[2023-04-24] MEDS: Amiodarone 200 MG Tablet 100 MG PO (16:30)
[2023-04-24] MEDS: Gabapentin 100 MG Capsule 200 MG PO (19:57)
[2023-04-24] MEDS: Heparin Injection (Vial) 5,000 UNIT/ML VIAL 5000 UNIT SC (19:57)
[2023-04-24] MEDS: Atorvastatin Calcium 20 MG Tablet PO (19:57)
[2023-04-24] MEDS: Oseltamivir Phosphate 30 MG Capsule PO (19:57)
[2023-04-25] VITALS (13 sets, daily range): BP systolic 95–113; BP diastolic 45–55; PULSE 74–105; RESP 12–22; TEMP 35.6–36.8; O2SAT 90–99; BMI 28.5
[2023-04-25] MEDS: Levothyroxine 50 MCG Tablet PO (05:13)
[2023-04-25] MEDS: Ipratropium/Albuterol Sulfate 3 ML AMPUL.NEB INHALATION ×3 (07:08→19:49)
[2023-04-25 08:04] LABS: Anion Gap 9 (5-15); BUN 69 mg/dL (7-18); BUN/Creat Ratio 14.5 RATIO (10-20); Calcium,Total 9.2 mg/dL (8.5-10.1); Chloride 98 mmol/L (98-107); Creatinine, Serum 4.75 mg/dL (0.70-1.30); EST Glomerular Filtration Rate 13 mL/min (>60); Est Glom Filt Rate - Afr Amer 15 mL/min (>60); Glucose 143 mg/dL (74-106); Potassium 4.6 mmol/L (3.5-5.1); Sodium Level 135 mmol/L (136-145)
--- NOTE | 2023-04-25 08:09 | PN.HOSP_ITS ---
Subjective Subjective Feeling much better today. Objective Data Objective Data Vital Signs: Vital Signs Temp Pulse Resp BP Pulse Ox O2 Del Method O2 Flow Rate 36.6 C 74 18 96/45 L 98 Nasal Cannula 3 04/25/23 04:23 04/25/23 04:23 04/25/23 04:23 04/25/23 04:23 04/25/23 04:23 04/25/23 07:54 04/25/23 07:54 FiO2 28 04/25/23 04:23 Oxygen Flow Rate (L/min) 3 Oxygen Delivery Method Nasal Cannula Weight: 82.6 kg Body Mass Index (BMI) 28.5 Intake & Output: Intake and Output for Last 24 Hours 04/23/23 04/24/23 04/25/23 23:59 23:59 23:59 Intake Total 600 / 600 170 / 170 100 / 100 Output Total 2700 / 2700 Balance 600 / 600 -2530 / -2530 100 / 100 Lab / Micro Data 04/23/23 07:07 04/25/23 06:20 Labs: Laboratory Results - last 24 hr 04/25/23 06:20: Sodium 135 L, Potassium 4.6, Chloride 98, Carbon Dioxide 28.0, Anion Gap 9, BUN 69 H, Creatinine 4.75 H, Estim Creat Clear Calc 13.60, Est GFR (MDRD) Af Amer 15 L, Est GFR (MDRD) Non-Af 13 L, BUN/Creatinine Ratio 14.5, Glucose 143 H, Calcium 9.2 Radiography Diagnostic Testing: Radiology Impression Echocardiogram 04/22/23 18:44 Interpretation Summary The estimated ejection fraction is 25-30 %. There is evidence of diastolic dysfunction. Mildly dilated right ventricle. The left atrium is mildly enlarged. Mild-Moderate (1-2+) mitral valve insufficiency. There is moderate global hypokinesis of the left ventricle. Ordering Physician: Kaylen Galindo Referring Physician: Zack Stacy Performed By: Jean Marie Cheng RCS Physical Exam Const Constitutional Narrative: Much more alert today. Alert. Nontoxic. Resp normal respiratory effort and no retractions Cardio regular rate, regular rhythm, S1 normal heart sound and S2 normal heart sound GI normal to inspection, nondistended, normoactive bowel sounds, soft to palpation, non-tender and non-distended Extremity General Extremity: edema bilateral lower extremity Assessment & Plan Assessment/Plan (1) COPD with acute exacerbation: (2) CHF (congestive heart failure): (3) Coronary artery disease: (4) Generalized weakness: (5) History of influenza: PLAN: Plan COPD with acute exacerbation * exacerbated by influenza A. * ontinue methylpred and BDs. Will change Methylpred to prednisone. Influenza A * on tamiflu. Acute on chronic congestive heart failure with reduced ejection fraction * Echo from 2021 demonstrated EF of 25 to 30%. Plan is to manage fluid status with dialysis Chronic conditions: * End-stage renal disease? On hemodialysis on Wednesdays and Fridays con hetalt placed patient billing representative for dialysis orders * Hypothyroidism- Patient is on levothyroxine home dose continued * Coronary artery disease? With previous history of CABG and subsequent stent placement. Patient remains on guideline directed medical therapy * Gout? Symptoms controlled on allopurinol * Chronic hypoxic respiratory failure secondary to COPD? Patient is on 3.5 L at baseline * Chronic hypotension? Patient is on midodrine * Paroxysmal A-fib with RVR? Patient currently being monitored in the progressive care unit. Patient is on amiodarone and carvedilol did continue. Patient was previously on Eliquis discontinued due to to GI bleed Physical deconditioning * Patient was minimal assistance with ambulation with therapy. * Patient has a baseline poor performance status. Patient was at home with his but is unclear if should be able to adequately care for him at this time. * Discussed with the patient's , is present at bedside. Seems like she is leaning towards him getting some additional therapy before returning home. Ultimately to be the patient's decision. Wait on case management and social work input. DVT prophylaxis? SCDs and heparin Charges/Coding Visit Charges Inpatient E&M: 03310 Subs Hosp L2
[2023-04-25] MEDS: Heparin Injection (Vial) 5,000 UNIT/ML VIAL 5000 UNIT SC ×2 (09:29→19:29)
[2023-04-25] MEDS: Amiodarone 200 MG Tablet 100 MG PO (09:29)
[2023-04-25] MEDS: Aspirin 81 MG TAB.CHEW PO (09:29)
--- NOTE | 2023-04-25 10:40 | CASEMGMT ---
HALEY BLANK chart review: Patient was admitted 04/18-04/20/23 for flu with hypoxia. See assessment from 04/19/23. Patient was discharged to home with resumption of [facility] and home oxygen at 3lpm. Patient was given prescription for Tamiflu. Patient returned to [facility] ED on 04/22/23 for SOB and weakness, patient was hypoxic of 76% on 4lpm and required 8lpm. Per ED report, patient was not using nebulizer at home. Patient was admitted for hypoxia with COPD and CHF exacerbation. HALEY BLANK in to discuss needs at discharge. Patient requiring assistance x2 and discussed possible SNF at discharge, patient and agreeable to possible SNF. Will monitor progress with therapy. CM will continue to monitor this patient and plan for a safe discharge.
[2023-04-25] MEDS: Allopurinol 100 MG Tablet PO (11:01)
[2023-04-25] MEDS: Fludrocortisone Acetate 0.1 MG Tablet 0.100000000000000006 MG PO (11:01)
[2023-04-25] MEDS: Sertraline 100 MG Tablet PO (11:01)
[2023-04-25] MEDS: guaiFENesin 1,200 MG Tablet 1200 MG PO ×2 (11:02→19:29)
--- NOTE | 2023-04-25 11:45 | CASEMGMT ---
RN CM reviewed progress with therapy, recommending SNF. RN CM in to discuss SNF at discharge. Patient and agreeable to SNF. SNF list provided to review and provided preferences. Patient had no further questions or concerns.
--- NOTE | 2023-04-25 14:19 | CASEMGMT ---
MEE met with patient and his . MEE introduced self and role at [facility]. SW asked if they had a chance to review the chcf list. They were interested in [facility]. SW let them know SW will make the referral to [facility] and let them know when SW hears back. Nolvia GUERRIER
--- NOTE | 2023-04-25 14:47 | CASEMGMT ---
Addendum entered by Mayte Tenorio 04/25/23 15:57: Patient has been accepted by [facility]. SW updated. Mayte Tenorio, Discharge Planning Asst. Original Note: Discharge Planning Referral sent via [facility] to [facility]. Mayte Tenorio, Discharge Planning Asst.
--- NOTE | 2023-04-25 15:35 | PCM.PN.REN ---
Subjective Subjective Sitting in chair. No overnight events. No complaints. Objective Data Objective Data Vital Signs: Vital Signs Temp Pulse Resp BP Pulse Ox O2 Del Method O2 Flow Rate 98.2 F 81 18 95/53 L 99 Nasal Cannula 3 04/25/23 09:13 04/25/23 15:11 04/25/23 15:11 04/25/23 09:13 04/25/23 11:19 04/25/23 09:13 04/25/23 11:19 FiO2 28 04/25/23 04:23 Oxygen Flow Rate (L/min) [ 3 AMBULATING with Oxygen #1] Oxygen Flow Rate (L/min) [At 3 REST with Oxygen] Oxygen Flow Rate (L/min) 3 Oxygen Delivery Method Nasal Cannula Weight: 82.6 kg Body Mass Index (BMI) 28.5 Intake & Output: Intake and Output for Last 24 Hours 04/23/23 04/24/23 04/25/23 23:59 23:59 23:59 Intake Total 600 / 600 170 / 170 100 / 100 Output Total 2700 / 2700 Balance 600 / 600 -2530 / -2530 100 / 100 Lab / Micro Data 04/23/23 07:07 04/25/23 06:20 Labs: Laboratory Results - last 24 hr 04/25/23 06:20: Sodium 135 L, Potassium 4.6, Chloride 98, Carbon Dioxide 28.0, Anion Gap 9, BUN 69 H, Creatinine 4.75 H, Estim Creat Clear Calc 13.60, Est GFR (MDRD) Af Amer 15 L, Est GFR (MDRD) Non-Af 13 L, BUN/Creatinine Ratio 14.5, Glucose 143 H, Calcium 9.2 Physical Exam Narrative Alert awake oriented x 3 no obvious distress s1s2 no murmurs lungs clear abdomen soft no edema Assessment & Plan Assessment/Plan (1) ESRD (end stage renal disease) on dialysis: PLAN: On hemodialysis Monday, Monday, Monday schedule. Last dialysis was yesterday, no acute indication for [facility] today, will plan for dialysis tomorrow. Will attempt removal with dialysis as patient/blood pressure tolerates. Will use midodrine as needed. Chest x-ray reviewed, suspected fluid overload. History of congestive heart failure with low ejection fraction. Last hemoglobin 9.8. No need for FERMIN at this time. Will follow hemoglobin trends.
--- NOTE | 2023-04-25 15:55 | CASEMGMT ---
Addendum entered by Nolvia Pulido 04/26/23 12:15: [facility] can take patient and transport patient to and from dialysis. SW went to notify patient. His was at [facility], but not in the room right now. Patient said she wanted to talk with SW. SW will check back so SW can notify them about [facility] accepting. Nolvia GUERRIER Original Note: [facility] said clinically they can take patient, [facility] is waiting on their transport to make sure they can transport patient to dialysis. SW let patient know that as long as their transportation can transport him to dialysis [facility] will be able to take him. SW let patient know SW will give him a definite answer tomorrow. Nolvia GUERRIER
[2023-04-25] MEDS: Atorvastatin Calcium 20 MG Tablet PO (19:29)
[2023-04-25] MEDS: Gabapentin 100 MG Capsule 200 MG PO (19:29)
[2023-04-25] MEDS: Oseltamivir Phosphate 30 MG Capsule PO (19:30)
[2023-04-26] VITALS (14 sets, daily range): BP systolic 91–288; BP diastolic 46–102; PULSE 70–96; RESP 14–20; TEMP 36.1–36.7; O2SAT 92–100; BMI 29.2; BMI 29.1; BMI 28.3
[2023-04-26] MEDS: Levothyroxine 50 MCG Tablet PO (03:22)
[2023-04-26] MEDS: Ipratropium/Albuterol Sulfate 3 ML AMPUL.NEB INHALATION (07:36)
[2023-04-26] MEDS: 0.9% Normal Saline 1,000 ML IV.SOLN. 1000 ML OPERA.SITE (07:57)
[2023-04-26] MEDS: PureFlow B 2K Dialysis Soln 1 BAG 6 BAG PF (07:57)
[2023-04-26] MEDS: Midodrine HCl 5 MG Tablet 10 MG PO (08:18)
--- NOTE | 2023-04-26 09:09 | PCM.PN.HOSP ---
Reason for Visit Reason for Visit: Diagnoses Atherosclerotic heart disease of [place] coronary artery without angina pectoris (04/22/23) Heart failure, unspecified (04/22/23) Chronic obstructive pulmonary disease with (acute) exacerbation (04/22/23) Gastro-esophageal reflux disease without esophagitis (04/22/23) End stage renal disease (04/22/23) Hypoxemia (04/22/23) Difficulty in walking, not elsewhere classified (04/22/23) Weakness (04/22/23) Personal history of other diseases of the respiratory system (04/22/23) Dependence on renal dialysis (04/22/23) Subjective Subjective Feeling well. Objective Data Objective Data Vital Signs: Vital Signs Temp Pulse Resp BP Pulse Ox O2 Del Method O2 Flow Rate 36.1 C L 92 15 104/60 97 Nasal Cannula 3 04/26/23 07:47 04/26/23 08:51 04/26/23 08:51 04/26/23 08:51 04/26/23 07:47 04/26/23 08:51 04/26/23 08:51 FiO2 30 04/26/23 00:57 Oxygen Flow Rate (L/min) [ 3 AMBULATING with Oxygen #1] Oxygen Flow Rate (L/min) [At 3 REST with Oxygen] Oxygen Flow Rate (L/min) 3 Oxygen Delivery Method Nasal Cannula Weight: 84.4 kg Body Mass Index (BMI) 29.1 Intake & Output: Intake and Output for Last 24 Hours 04/24/23 04/25/23 04/26/23 23:59 23:59 23:59 Intake Total 170 / 170 220 / 220 120 / 120 Output Total 2700 / 2700 Balance -2530 / -2530 220 / 220 120 / 120 Lab / Micro Data 04/23/23 07:07 04/25/23 06:20 Physical Exam Const alert and no apparent distress Constitutional Narrative: more alert overall. Able to sit himself up independently. Resp normal respiratory effort and no retractions Resp Narrative: bibasilar crackles. Cardio regular rate, regular rhythm and S1 normal heart sound GI normal to inspection, nondistended, normoactive bowel sounds, soft to palpation, non-tender and non-distended Neuro Sensorium / Orientation: awake and alert Assessment & Plan Assessment/Plan (1) COPD with acute exacerbation: (2) CHF (congestive heart failure): (3) Coronary artery disease: (4) Generalized weakness: (5) History of influenza: PLAN: Plan COPD with acute exacerbation exacerbated by influenza A. ontinue methylpred and BDs. Will change Methylpred to prednisone. Influenza A on tamiflu. Acute on chronic congestive heart failure with reduced ejection fraction Echo from 2021 demonstrated EF of 25 to 30%. Plan is to manage fluid status with dialysis Chronic conditions: End-stage renal disease? 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 With previous history of CABG and subsequent stent placement. Patient remains on guideline directed medical therapy Gout? Symptoms controlled on allopurinol Chronic hypoxic respiratory failure secondary to COPD? Patient is on 3.5 L at baseline Chronic hypotension? Patient is on midodrine Paroxysmal A-fib with RVR? Patient currently being monitored in the progressive care unit. Patient is on amiodarone and carvedilol did continue. Patient was previously on Eliquis discontinued due to to GI bleed Physical deconditioning Patient was minimal assistance with ambulation with therapy. Patient has a baseline poor performance status. Patient was at home with his but is unclear if should be able to adequately care for him at this time. Discussed with the patient's , is present at bedside. Seems like she is leaning towards him getting some additional therapy before returning home. Ultimately to be the patient's decision. Wait on case management and social work input. DVT prophylaxis? SCDs and heparin Disposition: to SNF pending insurance authorization. DW patient's . Charges/Coding Visit Charges Inpatient E&M: 19371 Subs Hosp L2
[2023-04-26] MEDS: Sertraline 100 MG Tablet PO (11:28)
[2023-04-26] MEDS: guaiFENesin 1,200 MG Tablet 1200 MG PO (11:28)
[2023-04-26] MEDS: Amiodarone 200 MG Tablet 100 MG PO (11:29)
[2023-04-26] MEDS: Allopurinol 100 MG Tablet PO (11:29)
[2023-04-26] MEDS: Aspirin 81 MG TAB.CHEW PO (11:30)
[2023-04-26] MEDS: Fludrocortisone Acetate 0.1 MG Tablet 0.100000000000000006 MG PO (11:30)
[2023-04-26] MEDS: Heparin Injection (Vial) 5,000 UNIT/ML VIAL 5000 UNIT SC (11:31)
--- NOTE | 2023-04-26 11:44 | PCM.PN.REN ---
Subjective Subjective Resting in bed. Just finished hemodialysis treatment. Denies any complaints. Objective Data Objective Data Vital Signs: Vital Signs Temp Pulse Resp BP Pulse Ox O2 Del Method O2 Flow Rate 98.1 F 73 18 128/102 H 92 Nasal Cannula 3 04/26/23 11:25 04/26/23 11:25 04/26/23 11:25 04/26/23 11:25 04/26/23 11:25 04/26/23 11:25 04/26/23 11:25 FiO2 30 04/26/23 00:57 Oxygen Flow Rate (L/min) [ 3 AMBULATING with Oxygen #1] Oxygen Flow Rate (L/min) [At 3 REST with Oxygen] Oxygen Flow Rate (L/min) 3 Oxygen Delivery Method Nasal Cannula Weight: 82 kg Body Mass Index (BMI) 28.3 Intake & Output: Intake and Output for Last 24 Hours 04/24/23 04/25/23 04/26/23 23:59 23:59 23:59 Intake Total 170 / 170 220 / 220 240 / 240 Output Total 2700 / 2700 2300 / 2300 Balance -2530 / -2530 220 / 220 -2060 / -2060 Lab / Micro Data 04/23/23 07:07 04/25/23 06:20 Physical Exam Narrative Alert awake oriented x 3 no obvious distress s1s2 no murmurs lungs clear anteriorly abdomen soft no edema AV fistula left forearm positive thrill and bruit Assessment & Plan Assessment/Plan (1) ESRD (end stage renal disease) on dialysis: PLAN: On hemodialysis Monday, Monday, Monday schedule at [facility] followed by Dr. Fam. Patient underwent hemodialysis today and tolerated around 2.3 L fluid removal. Will use midodrine as needed. Likely next hemodialysis will be on Monday. On Tamiflu for influenza infection. Blood pressures acceptable. Discharge planning in progress to [facility] for therapy. To have [facility] arranged [facility].
--- NOTE | 2023-04-26 12:22 | TREXTCAR_ITS ---
Diet Diet Order/Speech Therapy: 04/22/23 18:44 Diet: Renal - General Food consistency:: Regular Liquid Consistency:: Regular/Thin Wound(s) Rt wriat: Wound Type: Skin Tear Therapies Weight Bearing: Full weight bearing Physical Therapy: Eval and Treat Occupational Therapy: Eval and Treat Problem/Diagnosis (1) COPD with acute exacerbation: Status: Chronic Code(s): J44.1 - Chronic obstructive pulmonary disease with (acute) exacerbation (2) CHF (congestive heart failure): Status: Acute Code(s): I50.9 - Heart failure, unspecified (3) Coronary artery disease: Status: Acute Code(s): I25.10 - Atherosclerotic heart disease of [place] coronary artery without angina pectoris (4) Generalized weakness: Status: Acute Code(s): R53.1 - Weakness (5) History of influenza: Status: Acute Code(s): Z87.09 - Personal history of other diseases of the respiratory system Plan COPD with acute exacerbation * exacerbated by influenza A. * ontinue methylpred and BDs. Will change Methylpred to prednisone. Influenza A * on tamiflu. Acute on chronic congestive heart failure with reduced ejection fraction * Echo from 2021 demonstrated EF of 25 to 30%. Plan is to manage fluid status with dialysis Chronic conditions: * End-stage renal disease? 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 With previous history of CABG and subsequent stent placement. Patient remains on guideline directed medical therapy * Gout? Symptoms controlled on allopurinol * Chronic hypoxic respiratory failure secondary to COPD? Patient is on 3.5 L at baseline * Chronic hypotension? Patient is on midodrine * Paroxysmal A-fib with RVR? Patient currently being monitored in the progressive care unit. Patient is on amiodarone and carvedilol did continue. Patient was previously on Eliquis discontinued due to to GI bleed Physical deconditioning * Patient was minimal assistance with ambulation with therapy. * Patient has a baseline poor performance status. Patient was at home with his but is unclear if should be able to adequately care for him at this time. * Discussed with the patient's , is present at bedside. Seems like she is leaning towards him getting some additional therapy before returning home. Ultimately to be the patient's decision. Wait on case management and social work input. DVT prophylaxis? SCDs and heparin Disposition: to SNF pending insurance authorization. DW patient's . Allergies/Procedures Done in Hospital Allergies Penicillins Allergy (Severe, Verified 04/22/23 14:23) Rash, 105 temp amlodipine Allergy (Verified 04/22/23 14:23) itching and rash prednisone Allergy (Verified 04/22/23 14:23) Other HEART RACING indomethacin Adverse Reaction (Intermediate, Verified 04/22/23 14:23) Other unknown ropinirole Adverse Reaction (Intermediate, Verified 04/22/23 14:23) Other confusion trazodone Adverse Reaction (Intermediate, Verified 04/22/23 14:23) Other confusion aspirin Adverse Reaction (Mild, Verified 04/22/23 14:23) rash ENTERIC COATED ONLY; IS ABLE TO TAKE REGULAR ASPIRIN Type of Care/Length of Stay Estimated LOS: Convalescent Care Less Than 30 days Type of Care Needed: Skilled Rehab Potential: Fair Prognosis: Fair Additional Orders/Day of Discharge Day of Discharge: 04/26/23 Dietary and Speech Recommendations Dietitian Recommendations/Changes: continue renal-general diet as tolerated Discharge Plan Admission Admit Date/Time: 04/22/23 18:14 Primary Reason for Your Visit: influenza. CHF. Attending Provider: Andrey Soliman Primary Care Provider: Zack Stacy Consulting Providers: Kirsty Ewing; Kaylen Galindo; Sachin Ulloa Instructions Additional Instructions / Restrictions: Dialysis MWF. Discharge Orders/Prescriptions Prescriptions: New fludrocortisone 0.1 mg Tablet 0.1 mg PO BREAKFAST Qty: 0 0RF Continued allopurinol 100 mg tablet 100 mg PO DAILY nitroglycerin 0.4 mg tablet, sublingual 0.4 mg SUBLINGUAL Q5-15M PRN (Reason: chest pain) amiodarone 200 mg tablet 100 mg PO DAILY rosuvastatin [Crestor] 10 mg tablet 10 mg PO QHS gabapentin 100 mg capsule 200 mg PO QHS midodrine 10 mg tablet 10 mg PO MOWEFR Patient Comments: per patient he takes before dialysis Rx Instructions: do not give last dose of day after 6PM or within 4 hrs of bedtime guaifenesin [Mucinex] 600 mg tablet extended release 12hr 600 mg PO BID fluticasone propionate 50 mcg/actuation spray,suspension 2 spray INTRANASAL DAILY PRN (Reason: ALLERGIES) Bevespi Aerosphere 9-4.8 mcg HFA aerosol inhaler 2 puff INHALATION BID sertraline 100 mg tablet 100 mg PO DAILY Patient Comments: TAKE 1 TABLET BY MOUTH ONCE DAILY aspirin [Adult Aspirin Regimen] 81 mg tablet,delayed release (DR/EC) 81 mg PO DAILY albuterol sulfate 2.5 mg /3 mL (0.083 %) solution for nebulization 2.5 mg inhalation 4X/DAY PRN PRN (Reason: COPD) Qty: 180 6RF ascorbic acid (vitamin C) [Vitamin C] 500 mg Capsule, Extended Release 500 mg PO DAILY levothyroxine 50 mcg tablet 50 mcg PO DAILY carvedilol 3.125 mg Tablet 3.125 mg PO SuTuThSa@1000 Qty: 0 0RF Tawanna-Laura 0.8 mg tablet 1 tab PO Q24H Patient Comments: TAKE 1 TABLET BY MOUTH ONCE DAILY oseltamivir 30 mg Capsule 30 mg PO 2200 Qty: 10 0RF Referrals / Follow Up: Zack Stacy MD [Primary Care Provider] - Within 2 Weeks Disposition Disposition (needs filled in before D/C Order can be placed): [facility]
--- NOTE | 2023-04-26 12:28 | DS.PCM_ITS ---
Providers Date of Admission: 04/22/23 Date of Discharge: 04/26/23 Primary Care Physician: Dr. Zack Stacy MD Consultations 04/22/23 18:44 Consult: Nephrology Routine Consulting Provider: Kirsty Ewing Reason for Consult: esrd on HD EMERGENT Consult: No MD Notified: Yes Date Notified: 04/23/23 Time Notified: 03:49 Method of Notification: Answering Service Reason For Visit: HYPOXIA Diagnosis Discharge Diagnosis (1) COPD with acute exacerbation: Status: Chronic Code(s): J44.1 - Chronic obstructive pulmonary disease with (acute) exacerbation (2) CHF (congestive heart failure): Status: Acute Code(s): I50.9 - Heart failure, unspecified (3) Coronary artery disease: Status: Acute Code(s): I25.10 - Atherosclerotic heart disease of [place] coronary artery without angina pectoris (4) Generalized weakness: Status: Acute Code(s): R53.1 - Weakness (5) History of influenza: Status: Acute Code(s): Z87.09 - Personal history of other diseases of the respiratory system Plan COPD with acute exacerbation * exacerbated by influenza A. * ontinue methylpred and BDs. Pt declined prednisone. Influenza A Acute on chronic congestive heart failure with reduced ejection fraction * Echo from 2021 demonstrated EF of 25 to 30%. Plan is to manage fluid status with dialysis Chronic conditions: * End-stage renal disease? 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 With previous history of CABG and subsequent stent placement. Patient remains on guideline directed medical therapy * Gout? Symptoms controlled on allopurinol * Chronic hypoxic respiratory failure secondary to COPD? Patient is on 3.5 L at baseline * Chronic hypotension? Patient is on midodrine * Paroxysmal A-fib with RVR? Patient currently being monitored in the progressive care unit. Patient is on amiodarone and carvedilol did continue. Patient was previously on Eliquis discontinued due to to GI bleed Physical deconditioning * Patient was minimal assistance with ambulation with therapy. * Patient has a baseline poor performance status. Patient was at home with his but is unclear if should be able to adequately care for him at this time. * Discussed with the patient's , is present at bedside. Seems like she is leaning towards him getting some additional therapy before returning home. Ultimately to be the patient's decision. Wait on case management and social work input. DVT prophylaxis? SCDs and heparin Disposition: to SNF pending insurance authorization. DW patient's . Medications at Discharge Home Medications allopurinol 100 mg tablet 100 mg PO DAILY GOUT 05/03/18 nitroglycerin 0.4 mg sublingual tablet 0.4 mg sublingual Q5-15M PRN chest pain 05/03/18 amiodarone 200 mg tablet 100 mg PO DAILY heart 11/19/20 rosuvastatin 10 mg tablet (Crestor) 10 mg PO QHS cholesterol 11/19/20 ascorbic acid (vitamin C) 500 mg capsule,extended release (Vitamin C) 500 mg PO DAILY supplement 11/23/20 gabapentin 100 mg capsule 200 mg PO QHS restless leg 11/04/21 midodrine 10 mg tablet 10 mg PO MOWEFR bp 11/04/21 levothyroxine 50 mcg tablet 50 mcg PO DAILY thyroid 12/13/21 carvedilol 3.125 mg tablet 3.125 mg PO SuTuThSa@1000 #0 tabs 03/23/22 guaifenesin 600 mg tablet, extended release 12 hr (Mucinex) 600 mg PO BID 06/07/22 albuterol sulfate 2.5 mg/3 mL (0.083 %) solution for nebulization 2.5 mg (3 mL) inhalation 4X/DAY PRN PRN COPD #180 mL 04/04/23 aspirin 81 mg tablet,delayed release (Adult Aspirin Regimen) 81 mg PO DAILY 04/04/23 fluticasone propionate 50 mcg/actuation nasal spray,suspension 2 spray intranasal DAILY PRN ALLERGIES 04/04/23 glycopyrrolate 9 mcg-formoterol 4.8 mcg HFA aerosol inhaler (Bevespi Aerosphere) 2 puff inhalation BID SOB 04/04/23 sertraline 100 mg tablet 100 mg PO DAILY 04/04/23 vitamin B complex-vitamin C-folic acid 0.8 mg tablet (Tawanna-Laura) 1 tab PO Q24H 04/18/23 oseltamivir 30 mg capsule 30 mg PO 2200 #10 caps 04/20/23 fludrocortisone 0.1 mg tablet 0.1 mg PO BREAKFAST #0 tabs 04/26/23 Hospital Course Procedures Dialysis Summary of Care Provided Minutes Spent on Discharge: 35 Weight / BMI Weight Weight: 82 kg Body Mass Index (BMI) 28.3 ABG / Lab / Microbiology Data 04/23/23 07:07 04/25/23 06:20 Meaningful Use Info Meaningful Use Diagnoses (Choose all that apply): None applicable Discharge Plan Admission Admit Date/Time: 04/22/23 18:14 Primary Reason for Your Visit: influenza. CHF. Attending Provider: Andrey Soliman Primary Care Provider: Zack Stacy Consulting Providers: Kirsty Ewing; Kaylen Galindo; Sachin Ulloa Instructions Additional Instructions / Restrictions: Dialysis MWF. Discharge Orders/Prescriptions Prescriptions: New fludrocortisone 0.1 mg Tablet 0.1 mg PO BREAKFAST Qty: 0 0RF Continued allopurinol 100 mg tablet 100 mg PO DAILY nitroglycerin 0.4 mg tablet, sublingual 0.4 mg SUBLINGUAL Q5-15M PRN (Reason: chest pain) amiodarone 200 mg tablet 100 mg PO DAILY rosuvastatin [Crestor] 10 mg tablet 10 mg PO QHS gabapentin 100 mg capsule 200 mg PO QHS midodrine 10 mg tablet 10 mg PO MOWEFR Patient Comments: per patient he takes before dialysis Rx Instructions: do not give last dose of day after 6PM or within 4 hrs of bedtime guaifenesin [Mucinex] 600 mg tablet extended release 12hr 600 mg PO BID fluticasone propionate 50 mcg/actuation spray,suspension 2 spray INTRANASAL DAILY PRN (Reason: ALLERGIES) Bevespi Aerosphere 9-4.8 mcg HFA aerosol inhaler 2 puff INHALATION BID sertraline 100 mg tablet 100 mg PO DAILY Patient Comments: TAKE 1 TABLET BY MOUTH ONCE DAILY aspirin [Adult Aspirin Regimen] 81 mg tablet,delayed release (DR/EC) 81 mg PO DAILY albuterol sulfate 2.5 mg /3 mL (0.083 %) solution for nebulization 2.5 mg inhalation 4X/DAY PRN PRN (Reason: COPD) Qty: 180 6RF ascorbic acid (vitamin C) [Vitamin C] 500 mg Capsule, Extended Release 500 mg PO DAILY levothyroxine 50 mcg tablet 50 mcg PO DAILY carvedilol 3.125 mg Tablet 3.125 mg PO SuTuThSa@1000 Qty: 0 0RF Tawanna-Laura 0.8 mg tablet 1 tab PO Q24H Patient Comments: TAKE 1 TABLET BY MOUTH ONCE DAILY oseltamivir 30 mg Capsule 30 mg PO 2200 Qty: 10 0RF Referrals / Follow Up: Zack Stacy MD [Primary Care Provider] - Within 2 Weeks Disposition Disposition (needs filled in before D/C Order can be placed): [facility] Charges/Coding Visit Charges Inpatient E&M: 72828 Disch Hosp >30min
--- NOTE | 2023-04-26 13:03 | CASEMGMT ---
SW spoke with patient and his . SW let both of them know patient was accepted at [facility] and [facility] will transport him to and from dialysis. SW also let them know [facility] will arrange transportation to get patient to [facility]. MEE completed a 7000 in the [employer] system. Plan: d/c to [facility] under skilled level of care on a convalescent stay. Physicians will transport patient. Nolvia GUERRIER
--- NOTE | 2023-04-26 13:15 | CASEMGMT ---
MEE called [facility] and spoke with Trish. MEE notified Trish that patient is going to [facility] for short term rehab today. [facility] will bring patient to dialysis on Monday at 9:15. Trish thanked MEE for notifying them. Nolvia Pulido FRETTED INSTRUMENTS INSPECTOR CHEY
--- NOTE | 2023-04-26 13:45 | NURSING ---
Report called to [facility] Nurse Nadeen for pt to be d/c.
--- NOTE | 2023-04-26 14:08 | CASEMGMT ---
Discharge Planning Discharge orders, signed med list, covid results, and transport time sent to [facility] via [facility]. Physicians will transport patient by wheelchair at 2:30p. Nursing, SW, patient, and his updated. Mayte Tenorio, Discharge Planning Asst.
--- NOTE | 2023-04-27 11:13 | PCM.CONS.R ---
Assessment & Plan Assessment/Plan (1) ESRD (end stage renal disease) on dialysis: (2) History of influenza: (3) Generalized weakness: (4) Anemia in chronic kidney disease: PLAN: Plan This is a 77-year-old male with past medical history significant for ESRD on hemodialysis Monday at [facility] followed by Dr. Fam, last dialyzed yesterday, history of hypertension, anemia of chronic disease, history of intradialytic hypotension on midodrine, A-fib, COPD with chronic hypoxic respiratory failure on O2 at least 3 L at all time, history of coronary artery disease status post CABG who was recently admitted to the hospital for influenza A, weakness, A-fib and was discharged to the detention yesterday for therapy. Patient was readmitted back to the hospital after presenting to the emergency room last evening with complaints of weakness, shortness of breath and confusion. Nephrology consulted for hemodialysis needs. Patient dialyzed yesterday in the hospital and tolerated around 2.3 L fluid removal yesterday. There is no acute indication for renal placement therapy today. Potassium and bicarb normal. Reviewed chest x-ray from last evening which showed small left pleural effusion and mild atelectasis. Will plan for hemodialysis tomorrow over 4 hours with midodrine predialysis and attempt at least 2-3L fluid removal as patient/blood pressure tolerates. Current blood pressures acceptable. Recommend holding carvedilol mornings of dialysis. Quite possibly dry weight will be lowered during hospitalization. Patient has history of anemia of chronic disease, hemoglobin trends acceptable does not need FERMIN with this time. Will follow monitor hemoglobin levels. Further orders forthcoming as hospitalization evolves, thank you for allowing us to participate in the care of Mr. Gonzalez. HPI Consult Data Date of Consult: 04/27/23 HPI Narrative HPI Narrative: ANGIE GONZALEZ, is a 77 M with past medical history significant for ESRD on hemodialysis at [facility] Monday schedule followed by Dr. Fam who was just admitted to the hospital from April 22 to , admitted for influenza A, A-fib with RVR and generalized weakness. Patient was discharged from the hospital yesterday to [facility] but returned back to the emergency room last evening for evaluation of weakness, shortness of breath and confusion. Patient was admitted for further evaluation and treatment. Nephrology consulted for dialysis management. Patient is alert but very sleepy, at bedside. Patient did undergo hemodialysis yesterday in the hospital. [facility] Medical History Anemia Anxiety Arthritis Back pain BiPAP (biphasic positive airway pressure) dependence BPH (benign prostatic hyperplasia) Congestive heart failure (CHF) COPD (chronic obstructive pulmonary disease) Coronary artery disease involving coronary bypass graft Coronary atherosclerosis of [place] coronary artery CPAP (continuous positive airway pressure) dependence Depression Emphysema, unspecified End-stage renal disease on hemodialysis Erectile dysfunction ESRD (end stage renal disease) Former smoker GERD (gastroesophageal reflux disease) Gout High cholesterol History of atrial fibrillation History of edema History of heart attack HLD (hyperlipidemia) Hypertension Hypothyroidism Lower GI bleed Lumbar disc disease with radiculopathy Obesity On home oxygen therapy MARCELO (obstructive sleep apnea) Pleural effusion Psychosexual dysfunction with inhibited sexual excitement Sleep apnea Symptomatic anemia Home Medications allopurinol 100 mg tablet 100 mg PO DAILY GOUT 05/03/18 [History Last Taken 04/18/23] nitroglycerin 0.4 mg sublingual tablet 0.4 mg sublingual Q5-15M PRN chest pain 05/03/18 [History Last Taken Unknown] amiodarone 200 mg tablet 100 mg PO DAILY heart 11/19/20 [History Last Taken 04/18/23] rosuvastatin 10 mg tablet (Crestor) 10 mg PO QHS cholesterol 11/19/20 [History Last Taken 04/17/23] ascorbic acid (vitamin C) 500 mg capsule,extended release (Vitamin C) 500 mg PO DAILY supplement 11/23/20 [History Last Taken 04/18/23] gabapentin 100 mg capsule 200 mg PO QHS restless leg 11/04/21 [History Last Taken 04/17/23] midodrine 10 mg tablet 10 mg PO MOWEFR bp 11/04/21 [History Last Taken 03/18/22] levothyroxine 50 mcg tablet 50 mcg PO DAILY thyroid 12/13/21 [History Last Taken 03/18/22] carvedilol 3.125 mg tablet 3.125 mg PO SuTuThSa@1000 blood pressure #0 tabs 03/23/22 [Rx Last Taken 04/18/23] guaifenesin 600 mg tablet, extended release 12 hr (Mucinex) 600 mg PO BID cough 06/07/22 [History Last Taken Unknown] albuterol sulfate 2.5 mg/3 mL (0.083 %) solution for nebulization 2.5 mg (3 mL) inhalation 4X/DAY PRN PRN COPD #180 mL 04/04/23 [Rx Last Taken 04/18/23] aspirin 81 mg tablet,delayed release (Adult Aspirin Regimen) 81 mg PO DAILY 04/04/23 [History Last Taken 04/18/23] fluticasone propionate 50 mcg/actuation nasal spray,suspension 2 spray intranasal DAILY PRN ALLERGIES 04/04/23 [History Last Taken Unknown] glycopyrrolate 9 mcg-formoterol 4.8 mcg HFA aerosol inhaler (Bevespi Aerosphere) 2 puff inhalation BID SOB 04/04/23 [History Last Taken Unknown] sertraline 100 mg tablet 100 mg PO DAILY mental health 04/04/23 [History Last Taken Unknown] vitamin B complex-vitamin C-folic acid 0.8 mg tablet (Tawanna-Laura) 1 tab PO Q24H vitamin 04/18/23 [History Last Taken Unknown] oseltamivir 30 mg capsule 30 mg PO 2200 flu #10 caps 04/20/23 [Rx Last Taken Unknown] fludrocortisone 0.1 mg tablet 0.1 mg PO BREAKFAST #0 tabs 04/26/23 [Rx Last Taken Unknown] Allergy/AdvReac Type Severity Reaction Status Date / Time Penicillins Allergy Severe Rash, 105 Verified 04/26/23 19:16 temp amlodipine Allergy itching Verified 04/26/23 19:16 and rash prednisone Allergy Other Verified 04/26/23 19:16 indomethacin AdvReac Intermediate Other Verified 04/26/23 19:16 ropinirole AdvReac Intermediate Other Verified 04/26/23 19:16 trazodone AdvReac Intermediate Other Verified 04/26/23 19:16 aspirin AdvReac Mild rash Verified 04/26/23 19:16 Family History Mother , 84 y.o. Hypertension CVA (cerebral vascular accident) Father , 70 y.o. Heart disease Hodgkin disease Sister , 72 y.o. Heart disease Surgical History H/O left cataract extraction History of cardiac catheterization History of colectomy (~2022) History of colonoscopy History of coronary artery stent placement History of heart artery stent History of heart surgery History of knee replacement procedure of left knee History of open heart surgery (~08/2020) History of total right knee replacement S/P arteriovenous (AV) fistula repair (~12/2020) Social History household members: spouse housing: house pets and animals: No Smoking Status: Former smoker second hand exposure: No alcohol intake: current alcohol intake frequency: holidays/special occasions only ROS ROS Narrative As in HPI and past medical history Physical Exam Narrative Patient is alert to name, no apparent distress. Falls asleep quickly S1, S2, RRR Lungs clear anteriorly, diminished breath sounds posterior bases with faint expiratory wheezing. On O2 nasal cannula Abdomen soft, nontender Trace edema bilateral lower legs and feet AV fistula left forearm positive thrill and bruit Lab / Micro Data 04/23/23 07:07 04/25/23 06:20 Micro: Microbiology 04/26/23 13:05 Nasal Secretion SARS-CoV-2 Antigen (Rapid) - Final
== END 2023-04-26 14:32 | disposition skilled nursing facility (03) | DRG 190 ==
LOC: ED 18:02 → PCU 19:17
PROVIDERS: Admitting Provider Internal Medicine; Emergency Provider Emergency Medicine; PCP Family Medicine
DX: J44.1 Chronic obstructive pulmonary disease with (acute) exacerbation (principal); I50.23 Acute on chronic systolic (congestive) heart failure; N18.6 End stage renal disease; J96.11 Chronic respiratory failure with hypoxia; I13.2 Hypertensive heart and chronic kidney disease with heart failure and with stage 5 chronic kidney disease, or end stage renal disease; D69.6 Thrombocytopenia, unspecified; D63.1 Anemia in chronic kidney disease; I95.89 Other hypotension; Z99.81 Dependence on supplemental oxygen; Z99.2 Dependence on renal dialysis; I48.0 Paroxysmal atrial fibrillation; F32.A Depression, unspecified; E03.9 Hypothyroidism, unspecified; D53.9 Nutritional anemia, unspecified; K21.9 Gastro-esophageal reflux disease without esophagitis; M10.9 Gout, unspecified; I25.10 Atherosclerotic heart disease of native coronary artery without angina pectoris; E78.00 Pure hypercholesterolemia, unspecified; G47.33 Obstructive sleep apnea (adult) (pediatric); R26.2 Difficulty in walking, not elsewhere classified; Z79.82 Long term (current) use of aspirin; Z79.52 Long term (current) use of systemic steroids; Z95.5 Presence of coronary angioplasty implant and graft; R53.1 Weakness; Z87.891 Personal history of nicotine dependence; Z95.1 Presence of aortocoronary bypass graft; Z79.899 Other long term (current) drug therapy; Z79.51 Long term (current) use of inhaled steroids; Z98.42 Cataract extraction status, left eye; Z90.49 Acquired absence of other specified parts of digestive tract; Z96.653 Presence of artificial knee joint, bilateral; Z99.89 Dependence on other enabling machines and devices; Z87.09 Personal history of other diseases of the respiratory system
CPT/HCPCS: 36415; 36600; 71045; 80048; 82803; 83605; 83735; 83880; 84100; 85025; 87426; 90937; 93005; 93306; 94002; 94003; 94640; 94668; 94762; 97162; 97165; 97530; 97535; 97802; 99252; 99285; J7030; Q9957; A4216; C8929; G0257; G0463

== ENCOUNTER 2023-04-26 19:15 | Inpatient (IN) | payer MEDICARE, OTHER, SELFPAY ==
[2023-04-26] VITALS (8 sets, daily range): BP systolic 99–125; BP diastolic 54–65; PULSE 101–108; RESP 18–21; TEMP 36.5–36.6; O2SAT 85–95; BMI 29.9
--- NOTE | 2023-04-26 19:34 | EKG12_ITS ---
Test Reason : DYSRHYTHMIA Blood Pressure : / mmHG Vent. Rate : 101 BPM Atrial Rate : 000 BPM P-R Int : 000 ms QRS Dur : 106 ms QT Int : 280 ms P-R-T Axes : 000 -67 083 degrees QTc Int : 363 ms Atrial fibrillation with rapid ventricular response Left axis deviation Low voltage QRS Inferior infarct , age undetermined Possible Anterolateral infarct , age undetermined Abnormal ECG Confirmed by Андрей Washington ([id number]), editor greeting card LEONOR WALTER ([id number]) on 04/27/2023 8:06:25 AM Referred By: Confirmed By:Андрей Washington
--- NOTE | 2023-04-26 19:55 | RAD_ITS ---
STUDY: X-RAY CHEST REASON FOR EXAM: Male, 77 years old. dyspnea TECHNIQUE: AP portable COMPARISON: April 22, 2023 FINDINGS: Small left pleural effusion and left lower lobe consolidation and mild atelectasis at the right base. There is no demonstrated pleural abnormality. Postop change status post median sternotomy and CABG. The heart is enlarged. Normal mediastinum and isaura. Normal visualized pulmonary arteries. Mildly calcified aortic arch and descending thoracic aorta. Normal visualized thoracic spine. Normal visualized ribs, clavicles, and shoulders. There is no demonstrated abnormality of the visualized soft tissue structures of the upper abdomen. RAD/Chest 1 View (Portable) IMPRESSION: Small left pleural effusion and left lower lobe consolidation. Mild right basilar atelectasis Electronically Signed: Chu Celestin MD at 20:34 EST ,
[2023-04-26 19:56] LABS: Absolute Lymphocyte Count 0.29 X10^3/uL (0.83-4.51); Basophil# 0.02 X10^3/uL; Basophil% 0.2 % (0-1); Eosinophil# 0.02 X10^3/uL; Eosinophils% 0.2 % (0-5); Hematocrit 34.6 % (40-54); Hemoglobin 10.9 g/dL (13.0-16.5); Lymphocyte # 0.29 X10^3/ul (0.83-4.51); Lymphocyte % 3.2 % (19-41); Mean Corp Hgb Conc 31.5 g/dL (32-36); Mean Corpuscular Hgb 33.5 pg (27.0-32.0); Mean Corpuscular Volume 106.5 fL (80-94); Mean Platelet Vol. 10.2 fl (6.2-12.0); Monocyte# 0.68 X10^3/uL; Monocyte% 7.5 % (0-10); NRBC Flagged by Analyzer 0.4 % (0-5); Neutrophil # 8.04 X10^3/uL (2.7-7.7); Neutrophil % 88.4 % (47-70); POSITIVE COUNT YES; POSITIVE DIFFERENTIAL YES; Platelet Count 115 K/mm3 (150-450); RBC Distribution Width CV 15.1 % (11.6-14.6); RBC Distribution Width SD 58.7 fl (35.1-43.9); Red Blood Count 3.25 M/mm3 (4.6-6.2); White Blood Count 9.1 K/mm3 (4.4-11.0)
[2023-04-26 20:00] LABS: Differential Indicated SCAN CRITERIA MET
[2023-04-26 20:17] LABS: BNP,B-Type NATRIURETIC PEPTIDE 4048.8 pg/mL (0-100)
[2023-04-26 20:18] LABS: Differential Comment SCANNED
[2023-04-26 20:38] LABS: Anion Gap 8 (5-15); BUN 63 mg/dL (7-18); BUN/Creat Ratio 14.7 RATIO (10-20); Calcium,Total 9.4 mg/dL (8.5-10.1); Chloride 99 mmol/L (98-107); Creatinine, Serum 4.29 mg/dL (0.70-1.30); EST Glomerular Filtration Rate 14 mL/min (>60); Est Glom Filt Rate - Afr Amer 17 mL/min (>60); Estimated Creatinine Clearance 15.41 ml/min; Glucose 127 mg/dL (74-106); Potassium 4.3 mmol/L (3.5-5.1); Sodium Level 136 mmol/L (136-145); Troponin-I HS 118 pg/mL (3.0-78.0)
--- NOTE | 2023-04-26 21:22 | PCM.HP.STD ---
[facility] - General General Date of Admission: 04/26/23 Date of Service: 04/26/23 Chief Complaint: SOB and Confusion. HPI Narrative ANGIE SINGH, is a 77 M with a past medical history of essential hypertension, hyperlipidemia, hypothyroidism, obesity; with BMI; of 30 this admission, ESRD on HD; on Midodrine and Fludrocortisone for hypotension during HD, chronic atrial fibrillation, COPD; with chronic hypoxic respiratory failure on 3.5 L home O2, MARECLO, CAD; s/p CABG, history of CHF, MARCELO; on CPAP, chronic anemia, BPH, depression, gout and recent readmission here from April 22, 2023 to April 26, 2023 for acute influenza A, Atrial Fibrillation with RVR and generalized weakness with patient recommended to have hospice consultation - which he and his apparently declined - resulting in him being discharged to a SNF for subacute rehabilitation only to be immediately sent back to the hospital because he is more confused and is apparently too weak to get up and do anything. Now both the patient and his are agreeable to hospice/palliative care consultation as they realize his potential for meaningful and lasting recovery is poor. His CXR is relatively clear and his labs are similar to the ones prior to his discharge. He denies pain or focal neurologic deficits. He was then admitted to the general medical floor under observation status for ongoing care for a stay that is expected to be less than 48 hours. [facility] Medical History Anemia Anxiety Arthritis Back pain BiPAP (biphasic positive airway pressure) dependence BPH (benign prostatic hyperplasia) Congestive heart failure (CHF) COPD (chronic obstructive pulmonary disease) Coronary artery disease involving coronary bypass graft Coronary atherosclerosis of burns paiute coronary artery CPAP (continuous positive airway pressure) dependence Depression Emphysema, unspecified End-stage renal disease on hemodialysis Erectile dysfunction ESRD (end stage renal disease) Former smoker GERD (gastroesophageal reflux disease) Gout High cholesterol History of atrial fibrillation History of edema History of heart attack HLD (hyperlipidemia) Hypertension Hypothyroidism Lower GI bleed Lumbar disc disease with radiculopathy Obesity On home oxygen therapy MARCELO (obstructive sleep apnea) Pleural effusion Psychosexual dysfunction with inhibited sexual excitement Sleep apnea Symptomatic anemia Home Medications allopurinol 100 mg tablet 100 mg PO DAILY GOUT 05/03/18 [History Last Taken 04/18/23] nitroglycerin 0.4 mg sublingual tablet 0.4 mg sublingual Q5-15M PRN chest pain 05/03/18 [History Last Taken Unknown] amiodarone 200 mg tablet 100 mg PO DAILY heart 11/19/20 [History Last Taken 04/18/23] rosuvastatin 10 mg tablet (Crestor) 10 mg PO QHS cholesterol 11/19/20 [History Last Taken 04/17/23] ascorbic acid (vitamin C) 500 mg capsule,extended release (Vitamin C) 500 mg PO DAILY supplement 11/23/20 [History Last Taken 04/18/23] gabapentin 100 mg capsule 200 mg PO QHS restless leg 11/04/21 [History Last Taken 04/17/23] midodrine 10 mg tablet 10 mg PO MOWEFR bp 11/04/21 [History Last Taken 03/18/22] levothyroxine 50 mcg tablet 50 mcg PO DAILY thyroid 12/13/21 [History Last Taken 03/18/22] carvedilol 3.125 mg tablet 3.125 mg PO SuTuThSa@1000 blood pressure #0 tabs 03/23/22 [Rx Last Taken 04/18/23] guaifenesin 600 mg tablet, extended release 12 hr (Mucinex) 600 mg PO BID cough 06/07/22 [History Last Taken Unknown] albuterol sulfate 2.5 mg/3 mL (0.083 %) solution for nebulization 2.5 mg (3 mL) inhalation 4X/DAY PRN PRN COPD #180 mL 04/04/23 [Rx Last Taken 04/18/23] aspirin 81 mg tablet,delayed release (Adult Aspirin Regimen) 81 mg PO DAILY 04/04/23 [History Last Taken 04/18/23] fluticasone propionate 50 mcg/actuation nasal spray,suspension 2 spray intranasal DAILY PRN ALLERGIES 04/04/23 [History Last Taken Unknown] glycopyrrolate 9 mcg-formoterol 4.8 mcg HFA aerosol inhaler (Bevespi Aerosphere) 2 puff inhalation BID SOB 04/04/23 [History Last Taken Unknown] sertraline 100 mg tablet 100 mg PO DAILY mental health 04/04/23 [History Last Taken Unknown] vitamin B complex-vitamin C-folic acid 0.8 mg tablet (Tawanna-Laura) 1 tab PO Q24H vitamin 04/18/23 [History Last Taken Unknown] oseltamivir 30 mg capsule 30 mg PO 2200 flu #10 caps 04/20/23 [Rx Last Taken Unknown] fludrocortisone 0.1 mg tablet 0.1 mg PO BREAKFAST #0 tabs 04/26/23 [Rx Last Taken Unknown] Allergy/AdvReac Type Severity Reaction Status Date / Time Penicillins Allergy Severe Rash, 105 Verified 04/26/23 19:16 temp amlodipine Allergy itching Verified 04/26/23 19:16 and rash prednisone Allergy Other Verified 04/26/23 19:16 indomethacin AdvReac Intermediate Other Verified 04/26/23 19:16 ropinirole AdvReac Intermediate Other Verified 04/26/23 19:16 trazodone AdvReac Intermediate Other Verified 04/26/23 19:16 aspirin AdvReac Mild rash Verified 04/26/23 19:16 Family History Mother , 84 y.o. Hypertension CVA (cerebral vascular accident) Father , 70 y.o. Heart disease Hodgkin disease Sister , 72 y.o. Heart disease Surgical History H/O left cataract extraction History of cardiac catheterization History of colectomy (~2022) History of colonoscopy History of coronary artery stent placement History of heart artery stent History of heart surgery History of knee replacement procedure of left knee History of open heart surgery (~08/2020) History of total right knee replacement S/P arteriovenous (AV) fistula repair (~12/2020) Social History household members: spouse housing: house pets and animals: No Smoking Status: Former smoker second hand exposure: No alcohol intake: current alcohol intake frequency: holidays/special occasions only ROS Review of Systems ROS Unobtainable: due to mental status Constitutional Constitutional: Reports fatigue and weakness Respiratory/Chest Respiratory/Chest: Reports shortness of breath at rest and shortness of breath with exertion Musculoskeletal Musculoskeletal: Reports arthralgias Neurologic Neurologic: Reports abnormal gait Psychiatric Psychiatric: Reports anxiety and depression Hematologic/Lymphatic Hematologic/Lymphatic: Reports anemia Vital Signs Vital Signs Vital Signs: 04/26/23 19:16 04/26/23 19:16 04/26/23 21:06 Temperature 97.9 F Temperature Source Temporal Pulse Rate 108 H 101 H Respiratory Rate 21 H 19 H Respiratory Effort Short of Breath Respiratory Depth Normal Respiratory Pattern Normal Blood Pressure 99/62 125/61 H Blood Pressure Mean 74 82 Pulse Ox 95 95 Oxygen Delivery Method Nasal Cannula Nasal Cannula Nasal Cannula Oxygen Flow Rate (L/min) 3 3 3 Weight Weight: 191 lb 5.78 oz Body Mass Index (BMI) 29.9 Physical Exam Const alert, no apparent distress and average body habitus General Appearance: cooperative Orientation / Consciousness: confused HEENT normocephalic, head/scalp atraumatic, hearing grossly normal bilaterally and moist oral mucous membranes Eyes PERRL and EOMs intact bilaterally Neck no lymphadenopathy and supple Resp Resp Narrative: Diminished air movement throughout. Cardio regular rate and regular rhythm GI normal to inspection, nondistended, normoactive bowel sounds, soft to palpation, non-tender and non-distended Extremity normal to inspection Skin Skin Narrative: Patient has no evidence of rash or abscess at this time. Neuro CN's II-XII intact bilaterally, moves all extremities and no focal motor deficits Sensorium / Orientation: awake, alert, oriented to person and oriented to place Speech: speech normal Psych Mood & Affect: depressed and anxious Results Medical Records Data Attestation: I reviewed the patient's medical records Lab / Micro Data Attestation: I reviewed the patient's lab results. 04/26/23 19:47 04/26/23 20:15 Labs: Laboratory Results - last 24 hr 04/26/23 19:47: WBC 9.1, RBC 3.25 L, Hgb 10.9 L, Hct 34.6 L, MCV 106.5 H, MCH 33.5 H, MCHC 31.5 L, RDW Std Deviation 58.7 H, RDW Coeff of Nick 15.1 H, Plt Count 115 L, MPV 10.2, Immature Gran % (Auto) 0.500, Neut % (Auto) 88.4 H, Lymph % (Auto) 3.2 L, Wagoner % (Auto) 7.5, Eos % (Auto) 0.2, Baso % (Auto) 0.2, Absolute Neuts (auto) 8.0 H, Absolute Lymphs (auto) 0.29 L, Nucleated RBC % 0.4, Differential Comment SCANNED, Sodium Cancelled, Potassium Cancelled, Chloride Cancelled, Carbon Dioxide Cancelled, Anion Gap Cancelled, BUN Cancelled, Creatinine Cancelled, Estim Creat Clear Calc Cancelled, Est GFR (MDRD) Af Amer Cancelled, Est GFR (MDRD) Non-Af Cancelled, BUN/Creatinine Ratio Cancelled, Glucose Cancelled, Calcium Cancelled, Troponin I High Sens Cancelled, B-Natriuretic Peptide 4048.8 H 04/26/23 20:15: Sodium 136, Potassium 4.3, Chloride 99, Carbon Dioxide 29.0, Anion Gap 8, BUN 63 H, Creatinine 4.29 H, Estim Creat Clear Calc 15.41, Est GFR (MDRD) Af Amer 17 L, Est GFR (MDRD) Non-Af 14 L, BUN/Creatinine Ratio 14.7, Glucose 127 H, Calcium 9.4, Troponin I High Sens 118 H Micro: Microbiology 04/26/23 19:48 Mucosa - Nose SARS-CoV-2, Influenza & RSV (PCR) - Final Influenzae A Imaging Radiology Impression Chest X-Ray 04/26/23 19:55 IMPRESSION: Small left pleural effusion and left lower lobe consolidation. Mild right basilar atelectasis Electronically Signed: Chu Celestin MD at 20:34 EST Reading Location ID and State: [facility] / [place] Tel , Service support , Assessment & Plan Assessment/Plan (1) Generalized weakness: (2) Unable to ambulate: (3) History of influenza: PLAN: Plan 1. Generalized Weakness with Ambulatory Dysfunction with recent readmission here from April 22, 2023 to April 26, 2023 for acute influenza A, Atrial Fibrillation with RVR and generalized weakness with patient recommended to have hospice consultation which was declined at that time - Admit to general medical floor under observation status. We will consult palliative care to see this patient on-rounds in the AM to arrange transfer to ECF. Resume home medications as previous. 2. Essential hypertension - Continue home medications as previous plus give prn IV hydralazine for systolic blood pressure > 160 mmHg. 3. Hyperlipidemia - Resume statin. 4. Hypothyroidism - Continue Synthroid. 5. Obesity; with BMI; of 30 this admission - Weight loss will be recommended. 6. ESRD on HD; on Midodrine and Fludrocortisone for hypotension during HD - Noted. HD will not be arranged as he is being admitted for hospice/palliative care. 7. Chronic atrial fibrillation - Stable. 8. COPD; with chronic hypoxic respiratory failure on 3.5 L home O2 - Stable. Continue current regimen. 9. MARCELO; on CPAP - Stable. 10. CAD; s/p CABG - Noted. 11. History of CHF - Stable. 12. Chronic anemia - Stable. 13. BPH - Stable. 14. Depression - Current treatment to continue. 15. Gout - Stable with no evidence of acute flare. 16. DVT prophylaxis - Heparin 5,000 units sq BID. Total time: Approximately 45 minutes. Charges/Coding Visit Charges OBSV E&M: 55513 Observ/hosp same date L1
--- OUTSIDE RECORDS SUMMARY | 2023-04-26 23:16 | XMS RPT_ITS | CCD ---
Author Name Unknown Address [address] [place] [address] Organization [facility] Care Team Providers Care Laborer Laboratory Name Role Phone Zack Olmos Unavailable Raven [...] Ramirez MD Unavailable Sherry George DO Unavailable [phone] ZACK OLMOS Primary Care Unavailable ZACK OLMOS Referring Unavailable CHRISTIANE RINCON Attending Unavailabl e ZACK OLMOS Primary Care Unavailable SHERRY GEORGE Referring Unavailable ZACK OLMOS MD Primary Care Physician ZACK OLMOS Consulting Unavailable ZACK OLMOS Referring Unavailable PEARL BRADEN DO Admitting Unavailable EPARL BRADEN DO Primary Care Unavailable PEARL BRADEN [...] A Unavail able Orthopedic Provider Unavailable Unavailable Mirnada GONZALEZ, Dr. Echevarria Unavailable [phone] Medicine [facility], Pulmonary Unavailable Cardiology Provider Unavailable Unavailable Garrett GONZALEZ, Dr. Fulton Unavailable Dr. Riley Victor MD Unavailable James GONZALEZ, Dr. García Unavailable Emilie COSTA, Farideh Unavailable Vascular Surgeon Unavailable Unavailable Luiz GONZALEZ, Rosy Gonsales Unavailable Jose HEEL STIFFENER, Pilar Unavailable Unavailable Elbert HEEL STIFFENER, Laura E Unavailable Unavailable Jose Alberto HEEL STIFFENER, Lesley C Unavailable Unavailable Corcoran HEEL STIFFENER, Johnny Unavailable Unavailable Sanjeev GONZALEZ, Donaldo Herrera Unavailable Keenan MC, Edgar Gonsales Unavailable Keenan RN, Vania L Unavailable Unavail able Won HEEL STIFFENER, Varsha Unavailable Unavailable Popeye DE LEON, Umu Herrera Unavailable Unavaila ble Marthey HEEL STIFFENER, Lien Unavailable Unavailable Cedric HEEL STIFFENER, Sravan Unavailable Unavailable Mutersbaugh HEEL STIFFENER, Rachel K Unavailable Unavai toya CORRALC, Yarely J Unavailable Konrad MANAGER SYSTEM, Randi Unavailable Unavailable Isac HEEL STIFFENER, Alejandrina L Unavailable Unavailab le Corby HEEL STIFFENER, Rosy M Unavailable Unavailab le Cary HEEL STIFFENER, Muna Engel Unavailable Unavailab angelita Obrien MA, Varsha Unavailable Unavailable Kelly GONZALEZ, Tip Herrera Unavailable [phone] Wedannielleerd HEEL STIFFENER, Sandra Unavailable Unavailabl e Partha HEEL STIFFENER, Marisela N Unavailable Unavaila ble Zaugg HEEL STIFFENER, Raven Unavailable Unavailable Unavailable Unavailable SHERRY GEORGE [...] (10 sources) amLODIPine Drug Allergy 0 Itching [facility] Aspirin (10 sources) Aspirin Drug Allergy 5 [facility] Corticosteroids (7 sources) predniSONE Drug Allergy 1 [facility] Penicillins (antibiotic) (10 sources) Penicillins Drug Allergy 5 Other (See Comments) [facility] (20 sources) aspirin; Translations: [EC ASPIRIN] Propensity to adverse reactions to drug 5 [facility] (20 sources) Penicillins; Translations: [PENICILLINS] Propensity to adverse reactions to drug 5 Other (See Comments) [facility] (20 sources) amLODIPine; Translations: [AMLODIPINE] Drug Allergy 0 Itching [facility] (20 sources) Penicillins; Translations: [penicillins] Propensity to adverse reactions to drug 5 Other (See Comments), Prednisone (substance) [facility] (20 sources) predniSONE; Translations: [PREDNISONE] Drug Allergy 1 Other (See Comments) [facility] (20 sources) Penicillins Propensity to adverse reactions to drug 5 Other (See Comments) [facility] (20 sources) oxyCODONE; Translations: [OXYCODONE] Drug Allergy 3 GI Intolerance [facility] (20 sources) Aspirin; Translations: [aspirin] Drug Allergy [facility] (1 source) Indomethacin; Translations: [indomethacin] [facility] Allergy [facility] (1 source) rOPINIRole; Translations: [ropinirole] Drug Allergy [facility] (1 source) traZODone; Translations: [trazodone] Drug Allergy [facility] (1 source) amLODIPine Drug Allergy [facility] (1 source) Penicillin Drug Allergy [facility] (1 source) predniSONE Drug Allergy [facility] (1 source) Coating on Aspirin Drug allergy (disorder) [facility] (20 sources) Penicillin V Drug Allergy [facility], [facility]. 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[place] artery; Translations: [Atherosclerotic heart disease of [place] coronary artery without angina pectoris] Onset: 5 [...] Gout; Translations: [Gout, unspecified] 11-30-2022 Chronic Hemorrhoids (20 sources) Hemorrhoids; Translations: [Unspecified hemorrhoids] 09-16-2016 Episodic Hyperplasia of prostate (20 sources) Benign prostatic hypertrophy with outflow obstruction; Translations: [Benign prostatic hyperplasia with lower urinary tract symptoms] 11-30-2022 Chronic Immunizations and screening for infectious disease (20 sources) Needs influenza immunization; Translations: [Encounter for immunization] 07-06-2021 Episodic Malaise and fatigue (20 sources) Asthenia; Translations: [Weakness] Episodic Malignant neoplasm [...] with vomiting, unspecified] Episodic Nonspecific chest pain (20 sources) Chest pain; Translations: [Chest pain, unspecified] [...] aftercare (20 sources) Drug indicated; Translations: [Other skilled nursing (current) drug therapy] 07-06-2021 Episodic Other aftercare (20 sources) Post-discharge follow-up; Translations: [Encounter for follow-up examination after completed treatment for conditions other than malignant neoplasm] 11-30-2022 Episodic Other circulatory disease (1 source) Low blood pressure; Translations: [Hypotension, unspecified] Episodic Other circulatory disease (20 sources) Low blood pressure reading; Translations: [Nonspecific low blood-pressure reading] 11-30-2022 Episodic Other connective tissue disease (20 sources) Muscle pain; Translations: [Myalgia, unspecified site] 03-24-2014 Episodic Other connective tissue disease (20 sources) Pain in right hand; Translations: [Pain in right hand] 03-05-2013 Episodic Other connective tissue disease (20 sources) Tendinitis of elbow or forearm; Translations: [Other enthesopathies, not elsewhere classified] 02-18-2013 Episodic Other connective tissue disease (20 sources) Rotator cuff impingement syndrome; Translations: [Unspecified [...] right knee] Episodic Other non-traumatic joint disorders (20 sources) Pain in right shoulder; Translations: [Pain [...] Onset: 3 09-09-2022 Episodic Other skin disorders (20 sources) Disorder of elbow; Translations: [Localized swelling, [...] digestive tract] 05-12-2022 Episodic Residual codes; unclassified (20 sources) Influenza vaccination declined; Translations: [Immunization not [...] encounter status; Translations: [Therapeutic drug monitoring] Unclassified (20 sources) 07-06-2021 Unclassified (1 source) Other ventricular [...] 11-23-2021 Episodic Other aftercare (6 sources) 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 03-30-2023 10:36-0500 Diastolic blood pressure 56 mm[Hg] Sravan Steele LPN [facility], [facility]. 03-30-2023 10:36-0500 Heart rate 73 /min Sravan Steele LPN [facility] 03-30-2023 10:36-0500 Systolic blood pressure 83 mm[Hg] Sravan Steele LPN [facility]. 12-22-2022 09:58-0400 Body temperature 97.59 [degF] Андрей Claros RN [facility] 12-22-2022 09:58-0400 Diastolic blood pressure 62 mm[Hg] Андрей Claros RN [facility] 12-22-2022 09:58-0400 Heart rate 74 /min Андрей Claros RN [facility] 12-22-2022 09:58-0400 Respiratory rate 14 /min Андрей Claros RN [facility] 12-22-2022 09:58-0400 SaO2% (BldA) [Mass fraction] 90 % Андрей Claros RN [facility] 12-22-2022 09:58-0400 Systolic blood pressure 102 mm[Hg] Андрей Claros RN [facility] 12-15-2022 09:14-0400 Body temperature 98.1 [degF] Андрей Claros RN [facility] 12-15-2022 09:14-0400 Diastolic blood pressure 68 mm[Hg] Андрей Claros RN [facility] 12-15-2022 09:14-0400 Heart rate 76 /min Андрей Claros RN [facility] 12-15-2022 09:14-0400 Respiratory rate 16 /min Андрей Claros RN [facility] 12-15-2022 09:14-0400 SaO2% (BldA) [Mass fraction] 98 % Андрей Claros RN [facility] 12-15-2022 09:14-0400 Systolic blood pressure 112 mm[Hg] Андрей Claros RN [facility] 12-06-2022 13:42-0400 Body height 170.2 cm Sherry George DO Work Phone: [facility] 12-06-2022 13:42-0400 Body mass index (BMI) [Ratio] 26.63 kg/m2 Sherry George DO Work Phone: [facility] 12-06-2022 13:42-0400 Body weight 77.11 kg Sherry George DO Work Phone: [facility] 12-06-2022 13:42-0400 Diastolic blood pressure 56 mm[Hg] Sherry George DO Work Phone: [facility] 12-06-2022 13:42-0400 Heart rate 71 /min Sherry George DO Work Phone: [facility] 12-06-2022 13:42-0400 Systolic blood pressure 94 mm[Hg] Sherry George DO Work Phone: [facility] 12-06-2022 10:33-0400 Body height 170.2 cm Lenin Ramirez MD Work Phone: [facility] 12-06-2022 10:33-0400 Diastolic blood pressure 58 mm[Hg] Lenin Ramirez MD Work Phone: [facility] 12-06-2022 10:33-0400 Heart rate 76 /min Lenin Ramirez MD Work Phone: [facility] 12-06-2022 10:33-0400 Systolic blood pressure 98 mm[Hg] Lenin Ramirez MD Work Phone: [facility] 12-01-2022 10:39-0400 Body temperature 97.7 [degF] Андрей Claros RN [facility] 12-01-2022 10:39-0400 Diastolic blood pressure 60 mm[Hg] Андрей Claros RN [facility] 12-01-2022 10:39-0400 Heart rate 91 /min Андрей Claros RN [facility] 12-01-2022 10:39-0400 Respiratory rate 16 /min Андрей Claros RN [facility] 12-01-2022 10:39-0400 SaO2% (BldA) [Mass fraction] 93 % Андрей Claros RN [facility] 12-01-2022 10:39-0400 Systolic blood pressure 102 mm[Hg] Андрей Claros RN [facility] 11-30-2022 13:52-0400 Diastolic blood pressure 55 mm[Hg] Sravan Steele LPN [facility], [facility]. 11-30-2022 13:52-0400 Heart rate 93 /min Sravan Steele LPN [facility], [facility], [facility]. 11-30-2022 13:52-0400 Systolic blood pressure 111 mm[Hg] Sravan Steele LPN [facility], [facility], [facility]. 11-27-2022 10:09-0400 Heart rate 89 /min KATHE CHAMPION MD [facility] 11-27-2022 10:09-0400 Respiratory rate 18 /min KATHE CHAMPION MD [facility] 11-27-2022 10:04-0400 Body temperature 97.7 [degF] KATHE CHAMPION MD [facility] 11-27-2022 10:04-0400 Diastolic Blood Pressure Non-Invasive 74 1 KATHE CHAMPION MD [facility] 11-27-2022 10:04-0400 Heart rate 89 /min KATHE CHAMPION MD [facility] 11-27-2022 10:04-0400 Systolic Blood Pressure Non-Invasive 105 1 KATHE CHAMPION MD [facility] 11-27-2022 07:27-0400 Heart rate 85 /min KATHE CHAMPION MD [facility] 11-27-2022 07:27-0400 Respiratory rate 18 /min KATHE CHAMPION MD [facility] 11-27-2022 07:18-0400 Body temperature 97.7 [degF] KATHE CHAMPION MD [facility] 11-27-2022 07:18-0400 Diastolic Blood Pressure Non-Invasive 55 1 KATHE CHAMPION MD [facility] 11-27-2022 07:18-0400 Respiratory rate 18 /min KATHE CHAMPION MD [facility] 11-27-2022 07:18-0400 Systolic Blood Pressure Non-Invasive 98 1 KATHE CHAMPION MD [facility] 11-27-2022 02:28-0400 Blood Pressure Cuff Size KATHE CHAMPION MD [facility] 11-27-2022 02:28-0400 Blood Pressure Location KATHE CHAMPION MD [facility] 11-27-2022 02:28-0400 Blood Pressure Method KATHE CHAMPION MD [facility] 11-27-2022 02:28-0400 Body temperature 97.88 [degF] KATHE CHAMPION MD [facility] 11-27-2022 02:28-0400 Diastolic Blood Pressure Non-Invasive 61 1 KATHE CHAMPION MD [facility] 11-27-2022 02:28-0400 Systolic Blood Pressure Non-Invasive 93 1 KATHE CHAMPION MD [facility] 11-27-2022 00:40-0400 Blood Pressure Cuff Size KATHE CHAMPION MD [facility] 11-27-2022 00:40-0400 Blood Pressure Location KATHE CHAMPION MD [facility] 11-27-2022 00:40-0400 Blood Pressure Method KATHE CHAMPION MD [facility] 11-26-2022 23:26-0400 Blood Pressure Cuff Size KATHE CHAMPION MD [facility] 11-26-2022 23:26-0400 Blood Pressure Location KATHE CHAMPION MD [facility] 11-26-2022 23:26-0400 Blood Pressure Method KATHE CHAMPION MD [facility] 11-26-2022 19:11-0400 Body temperature 96.8 [degF] KATHE CHAMPION MD [facility] 11-26-2022 19:11-0400 Body weight 80.5 kg KATHE CHAMPION MD [facility] 11-26-2022 19:11-0400 Reason For Taking VItal Signs KATHE CHAMPION MD [facility] 11-26-2022 19:01-0400 Heart rate 104 /min KATHE CHAMPION MD [facility] 11-26-2022 18:31-0400 Heart rate 104 /min KATHE CHAMPION MD [facility] 11-26-2022 18:02-0400 Heart rate 76 /min KATHE CHAMPION MD [facility] 11-26-2022 17:05-0400 Body weight 81.9 kg KATHE CHAMPION MD [facility] 11-26-2022 17:05-0400 Reason For Taking VItal Signs KATHE CHAMPION MD [facility] 11-26-2022 14:34-0400 Heart rate 124 /min KATHE CHAMPION MD [facility] 11-26-2022 10:36-0400 Heart rate 104 /min KATHE CHAMPION MD [facility] 11-26-2022 02:23-0400 Reason For Taking VItal Signs KATHE CHAMPION MD [facility] 11-25-2022 12:20-0400 Body temperature 98.06 [degF] KATHE CHAMPION MD [facility] 11-25-2022 12:20-0400 Body weight 78.2 kg KATHE CHAMPION MD [facility] 11-25-2022 09:23-0400 Body temperature 97.52 [degF] KATHE CHAMPION MD [facility] 11-24-2022 19:00-0400 Heart rate 92 /min KATHE CHAMPION MD [facility] 11-24-2022 16:54-0400 Mean blood pressure 68 mm[Hg] KATHE CHAMPION MD [facility] 11-24-2022 15:05-0400 Mean blood pressure 67 mm[Hg] KATHE CHAMPION MD [facility] 11-24-2022 14:30-0400 Mean blood pressure 60 mm[Hg] KATHE CHAMPION MD [facility] 11-24-2022 00:05-0400 Body height 170 cm KATHE CHAMPION MD [facility] 11-24-2022 00:05-0400 Body weight 26.75 kg/m2 KATHE CHAMPION MD [facility] 11-17-2022 08:56-0400 Body temperature 97.2 [degF] Essence Larios [facility] 11-17-2022 08:56-0400 Diastolic blood pressure 58 mm[Hg] Essence Larios [facility] 11-17-2022 08:56-0400 Heart rate 58 /min Essence Larios [facility] 11-17-2022 08:56-0400 Respiratory rate 18 /min Essence Larios [facility] 11-17-2022 08:56-0400 SaO2% (BldA) [Mass fraction] 98 % Essence Larios [facility] 11-17-2022 08:56-0400 Systolic blood pressure 102 mm[Hg] Essence Larios [facility] 11-03-2022 10:55-0400 Body temperature 98.2 [degF] Андрей Claros RN [facility] 11-03-2022 10:55-0400 Diastolic blood pressure 62 mm[Hg] Андрей Claros RN [facility] 11-03-2022 10:55-0400 Heart rate 78 /min Андрей Claros RN [facility] 11-03-2022 10:55-0400 Respiratory rate 16 /min Андрей Claros RN [facility] 11-03-2022 10:55-0400 SaO2% (BldA) [Mass fraction] 93 % Андрей Claros RN [facility] 11-03-2022 10:55-0400 Systolic blood pressure 118 mm[Hg] Андрей Claros RN [facility] 10-25-2022 09:24-0400 Body temperature 98.29 [degF] Андрей Claros RN [facility] 10-25-2022 09:24-0400 Diastolic blood pressure 62 mm[Hg] Андрей Claros RN [facility] 10-25-2022 09:24-0400 Heart rate 78 /min Андрей Claros RN [facility] 10-25-2022 09:24-0400 Respiratory rate 16 /min Андрей Claros RN [facility] 10-25-2022 09:24-0400 SaO2% (BldA) [Mass fraction] 92 % Андрей Claros RN [facility] 10-25-2022 09:24-0400 Systolic blood pressure 102 mm[Hg] Андрей Claros RN [facility] 10-13-2022 08:53-0400 Body temperature 97.9 [degF] Андрей Claros RN [facility] 10-13-2022 08:53-0400 Diastolic blood pressure 62 mm[Hg] Андрей Claros RN [facility] 10-13-2022 08:53-0400 Heart rate 86 /min Андрей Claros RN [facility] 10-13-2022 08:53-0400 Respiratory rate 16 /min Андрей Claros RN [facility] 10-13-2022 08:53-0400 SaO2% (BldA) [Mass fraction] 97 % Андрей Claros RN [facility] 10-13-2022 08:53-0400 Systolic blood pressure 112 mm[Hg] Андрей Claros RN [facility] 10-06-2022 08:32-0400 Body temperature 98.1 [degF] Андрей Claros RN [facility] 10-06-2022 08:32-0400 Diastolic blood pressure 68 mm[Hg] Андрей Claros RN [facility] 10-06-2022 08:32-0400 Heart rate 68 /min Андрей Claros RN [facility] 10-06-2022 08:32-0400 Respiratory rate 16 /min Андрей Claros RN [facility] 10-06-2022 08:32-0400 SaO2% (BldA) [Mass fraction] 97 % Андрей Claros RN [facility] 10-06-2022 08:32-0400 Systolic blood pressure 108 mm[Hg] Андрей Claros RN [facility] 09-29-2022 10:34-0400 Body temperature 98.01 [degF] Андрей Claros RN [facility] 09-29-2022 10:34-0400 Diastolic blood pressure 60 mm[Hg] Андрей Claros RN [facility] 09-29-2022 10:34-0400 Heart rate 92 /min Андрей Claros RN [facility] 09-29-2022 10:34-0400 Respiratory rate 16 /min Андрей Claros RN [facility] 09-29-2022 10:34-0400 SaO2% (BldA) [Mass fraction] 97 % Андрей Claros RN [facility] 09-29-2022 10:34-0400 Systolic blood pressure 118 mm[Hg] Андрей Claros RN [facility] 09-22-2022 08:23-0400 Body temperature 98.1 [degF] Андрей Claros RN [facility] 09-22-2022 08:23-0400 Diastolic blood pressure 62 mm[Hg] Андрей Claros RN [facility] 09-22-2022 08:23-0400 Heart rate 82 /min Андрей Claros RN [facility] 09-22-2022 08:23-0400 Respiratory rate 16 /min Андрей Claros RN [facility] 09-22-2022 08:23-0400 SaO2% (BldA) [Mass fraction] 99 % Андрей Claros RN [facility] 09-22-2022 08:23-0400 Systolic blood pressure 108 mm[Hg] Андрей Claros RN [facility] 09-15-2022 09:01-0400 Body temperature 98.29 [degF] Андрей Claros RN [facility] 09-15-2022 09:01-0400 Diastolic blood pressure 62 mm[Hg] Андрей Claros RN [facility] 09-15-2022 09:01-0400 Heart rate 79 /min Андрей Claros RN [facility] 09-15-2022 09:01-0400 Respiratory rate 16 /min Андрей Claros RN [facility] 09-15-2022 09:01-0400 SaO2% (BldA) [Mass fraction] 91 % Андрей Claros RN [facility] 09-15-2022 09:01-0400 Systolic blood pressure 104 mm[Hg] Андрей Claros RN [facility] 09-08-2022 08:47-0400 Body temperature 98.1 [degF] Андрей Claros RN [facility] 09-08-2022 08:47-0400 Diastolic blood pressure 60 mm[Hg] Андрей Claros RN [facility] 09-08-2022 08:47-0400 Heart rate 87 /min Андрей Claros RN [facility] 09-08-2022 08:47-0400 Respiratory rate 16 /min Андрей Claros RN [facility] 09-08-2022 08:47-0400 SaO2% (BldA) [Mass fraction] 99 % Андрей Claros RN [facility] 09-08-2022 08:47-0400 Systolic blood pressure 102 mm[Hg] Андрей Claros RN [facility] 09-01-2022 09:01-0400 Body temperature 97.3 [degF] Андрей Claros RN [facility] 09-01-2022 09:01-0400 Diastolic blood pressure 58 mm[Hg] Андрей Claros RN [facility] 09-01-2022 09:01-0400 Heart rate 92 /min Андрей Claros RN [facility] 09-01-2022 09:01-0400 Respiratory rate 16 /min Андрей Claros RN [facility] 09-01-2022 09:01-0400 SaO2% (BldA) [Mass fraction] 97 % Андрей Claros RN [facility] 09-01-2022 09:01-0400 Systolic blood pressure 112 mm[Hg] Андрей Claros RN [facility] [facility] 08-25-2022 11:43-0400 Body temperature 98.2 [degF] Андрей Claros RN [facility] 08-25-2022 11:43-0400 Diastolic blood pressure 76 mm[Hg] Андрей Claros RN [facility] 08-25-2022 11:43-0400 Heart rate 81 /min Андрей Claros RN [facility] 08-25-2022 11:43-0400 Respiratory rate 16 /min Андрей Claros RN [facility] 08-25-2022 11:43-0400 SaO2% (BldA) [Mass fraction] 97 % Андрей Claros RN [facility] 08-25-2022 11:43-0400 Systolic blood pressure 114 mm[Hg] Андрей Claros RN [facility] 08-09-2022 08:39-0400 Body temperature 98.2 [degF] Андрей Claros RN [facility] 08-09-2022 08:39-0400 Diastolic blood pressure 76 mm[Hg] Андрей Claros RN [facility] 08-09-2022 08:39-0400 Heart rate 87 /min Андрей Claros RN [facility] 08-09-2022 08:39-0400 Respiratory rate 16 /min Андрей Claros RN [facility] 08-09-2022 08:39-0400 SaO2% (BldA) [Mass fraction] 95 % Андрей Claros RN [facility] 08-09-2022 08:39-0400 Systolic blood pressure 108 mm[Hg] Андрей Claros RN [facility] 07-21-2022 08:56-0400 Body temperature 98.1 [degF] Андрей Claros RN [facility] 07-21-2022 08:56-0400 Diastolic blood pressure 76 mm[Hg] Андрей Claros RN [facility] 07-21-2022 08:56-0400 Heart rate 76 /min Андрей Claros RN [facility] 07-21-2022 08:56-0400 Respiratory rate 16 /min Андрей Claros RN [facility] 07-21-2022 08:56-0400 SaO2% (BldA) [Mass fraction] 97 % Андрей Claros RN [facility] 07-21-2022 08:56-0400 Systolic blood pressure 106 mm[Hg] Андрей Claros RN [facility] 06-28-2022 11:27-0400 Body temperature 98.01 [degF] Андрей Claros RN [facility] 06-28-2022 11:27-0400 Diastolic blood pressure 62 mm[Hg] Андрей Claros RN [facility] 06-28-2022 11:27-0400 Heart rate 63 /min Андрей Claros RN [facility] 06-28-2022 11:27-0400 Respiratory rate 16 /min Андрей Claros RN [facility] 06-28-2022 11:27-0400 SaO2% (BldA) [Mass fraction] 93 % Андрей Claros RN [facility] 06-28-2022 11:27-0400 Systolic blood pressure 102 mm[Hg] Андрей Claros RN [facility] 06-23-2022 11:21-0400 Body temperature 98.1 [degF] Андрей Claros RN [facility] 06-23-2022 11:21-0400 Diastolic blood pressure 74 mm[Hg] Андрей Claros RN [facility] 06-23-2022 11:21-0400 Heart rate 76 /min Андрей Claros RN [facility] 06-23-2022 11:21-0400 Respiratory rate 16 /min Андрей Claros RN [facility] 06-23-2022 11:21-0400 SaO2% (BldA) [Mass fraction] 98 % Андрей Claros RN [facility] 06-23-2022 11:21-0400 Systolic blood pressure 114 mm[Hg] Андрей Claros RN [facility] 06-23-2022 09:18-0400 Body temperature 97.9 [degF] Juancho Kaminski PT [facility] 06-23-2022 09:18-0400 Diastolic blood pressure 70 mm[Hg] Juancho Kaminski [facility] 06-23-2022 09:18-0400 Heart rate 80 /min Juancho Kaminski PT [facility] 06-23-2022 09:18-0400 Respiratory rate 18 /min Juancho Kaminski PT [facility] 06-23-2022 09:18-0400 SaO2% (BldA) [Mass fraction] 97 % Juancho Kaminski [facility] 06-23-2022 09:18-0400 Systolic blood pressure 125 mm[Hg] Juancho Kaminski [facility] 06-21-2022 09:08-0400 Body height 163.83 cm [facility], [facility].; [facility]. 06-21-2022 09:08-0400 Body mass index (BMI) [Ratio] 28.56 kg/m2 [facility], [facility].; [employer] [facility], [facility]. 06-21-2022 09:08-0400 Body surface area Derived from formula 1.83 m2 [facility], [facility].; [employer] [facility], [facility]. 06-21-2022 09:08-0400 Body weight 76.66 kg [facility], [facility].; [employer] [facility], [facility]. 06-21-2022 09:08-0400 Diastolic blood pressure 51 mm[Hg] [facility], [facility].; [employer] [facility], [facility]. 06-21-2022 09:08-0400 Heart rate 77 /min [facility], [facility].; [employer] [facility], [facility]. 06-21-2022 09:08-0400 Systolic blood pressure 130 mm[Hg] [facility], [facility].; [employer], [facility]. 06-15-2022 15:37-0400 Body temperature 97.7 [degF] Sravan Martín [facility] 06-15-2022 15:37-0400 Diastolic blood pressure 81 mm[Hg] Sravan Martín [facility] 06-15-2022 15:37-0400 Heart rate 78 /min Sravan Martín [facility] 06-15-2022 15:37-0400 Respiratory rate 18 /min Sravan Martín R D INTERN [facility] 06-15-2022 15:37-0400 SaO2% (BldA) [Mass fraction] 91 % Sravan Martín R D INTERN [facility] 06-15-2022 15:37-0400 Systolic blood pressure 132 mm[Hg] Sravan Martín R D INTERN [facility] 06-09-2022 12:59-0400 Body temperature 97.7 [degF] Sravan Martín R D INTERN [facility] 06-09-2022 12:59-0400 Diastolic blood pressure 64 mm[Hg] Sravan Martín R D INTERN [facility] 06-09-2022 12:59-0400 Heart rate 71 /min Sravan Martín R D INTERN [facility] 06-09-2022 12:59-0400 Respiratory rate 18 /min Sravan Martín R D INTERN [facility] 06-09-2022 12:59-0400 SaO2% (BldA) [Mass fraction] 93 % Sravan Martín R D INTERN [facility] 06-09-2022 12:59-0400 Systolic blood pressure 125 mm[Hg] Sravan Martín R D INTERN [facility] 06-02-2022 09:42-0400 Body temperature 99.1 [degF] Андрей Claros RN [facility] 06-02-2022 09:42-0400 Diastolic blood pressure 58 mm[Hg] Андрей Claros RN [facility] 06-02-2022 09:42-0400 Heart rate 76 /min Андрей Claros RN [facility] 06-02-2022 09:42-0400 Respiratory rate 16 /min Андрей Claros RN [facility] 06-02-2022 09:42-0400 SaO2% (BldA) [Mass fraction] 96 % Андрей Claros RN [facility] 06-02-2022 09:42-0400 Systolic blood pressure 102 mm[Hg] Андрей Claros RN [facility] 06-01-2022 15:40-0400 Body temperature 97.5 [degF] [facility] 06-01-2022 15:40-0400 Diastolic blood pressure 62 mm[Hg] [facility] 06-01-2022 15:40-0400 Respiratory rate 17 /min [facility] 06-01-2022 15:40-0400 Systolic blood pressure 128 mm[Hg] [facility] 05-31-2022 10:08-0400 Body height 170.2 cm Lenin Ramirez MD Work Phone: [facility] 05-31-2022 10:08-0400 Body mass index (BMI) [Ratio] 26.31 kg/m2 Lenin Ramirez MD Work Phone: [facility] 05-31-2022 10:08-0400 Body weight 76.2 kg Lenin Ramirez MD Work Phone: [facility] 05-31-2022 10:08-0400 Diastolic blood pressure 69 mm[Hg] Lenin Ramirez MD Work Phone: [facility] 05-31-2022 10:08-0400 Heart rate 73 /min Lenin Ramirez MD Work Phone: [facility] 05-31-2022 10:08-0400 SaO2% (BldA) [Mass fraction] 99 % Lenin Ramirez MD Work Phone: [facility] 05-31-2022 10:08-0400 Systolic blood pressure 119 mm[Hg] Lenin Ramirez MD Work Phone: [facility] 05-26-2022 09:03-0400 Body temperature 98.1 [degF] Андрей Claros RN [facility] 05-26-2022 09:03-0400 Diastolic blood pressure 56 mm[Hg] Андрей Claros RN [facility] 05-26-2022 09:03-0400 Heart rate 86 /min Андрей Claros RN [facility] 05-26-2022 09:03-0400 Respiratory rate 16 /min Андрей Claros RN [facility] 05-26-2022 09:03-0400 SaO2% (BldA) [Mass fraction] 98 % Андрей Claros RN [facility] 05-26-2022 09:03-0400 Systolic blood pressure 110 mm[Hg] Андрей Claros RN [facility] 05-24-2022 09:14-0400 Body temperature 97.9 [degF] Sachin Claire PT [facility] 05-24-2022 09:14-0400 Diastolic blood pressure 72 mm[Hg] Sachin Claire PT [facility] 05-24-2022 09:14-0400 Heart rate 63 /min Sachin Claire PT [facility] 05-24-2022 09:14-0400 Respiratory rate 16 /min Sachin Claire PT [facility] 05-24-2022 09:14-0400 SaO2% (BldA) [Mass fraction] 97 % Sachin Claire PT [facility] 05-24-2022 09:14-0400 Systolic blood pressure 117 mm[Hg] Sachin Claire PT [facility] 05-19-2022 10:23-0500 Body temperature 97.3 [degF] [facility] R D INTERN [facility] 05-19-2022 10:23-0500 Diastolic blood pressure 74 mm[Hg] [facility] 05-19-2022 10:23-0500 Heart rate 77 /min [facility] 05-19-2022 10:23-0500 Respiratory rate 17 /min [facility] 05-19-2022 10:23-0500 SaO2% (BldA) [Mass fraction] 95 % [facility] 05-19-2022 10:23-0500 Systolic blood pressure 138 mm[Hg] [facility] 05-19-2022 08:35-0500 Body temperature 98.49 [degF] Андрей Claros RN [facility] 05-19-2022 08:35-0500 Diastolic blood pressure 54 mm[Hg] Андрей Claros RN [facility] 05-19-2022 08:35-0500 Heart rate 78 /min Андрей Claros RN [facility] 05-19-2022 08:35-0500 Respiratory rate 16 /min Андрей Claros RN [facility] 05-19-2022 08:35-0500 SaO2% (BldA) [Mass fraction] 99 % Андрей Claros RN [facility] 05-19-2022 08:35-0500 Systolic blood pressure 116 mm[Hg] Андрей Hyacinth RN [facility] 05-16-2022 15:05-0500 Body temperature 98.71 [degF] Sravan Martín R D INTERN [facility] 05-16-2022 15:05-0500 Diastolic blood pressure 89 mm[Hg] Sravan Martín R D INTERN [facility] 05-16-2022 15:05-0500 Heart rate 79 /min Sravan Martín R D INTERN [facility] 05-16-2022 15:05-0500 Respiratory rate 18 /min Sravan Martín R D INTERN [facility] 05-16-2022 15:05-0500 SaO2% (BldA) [Mass fraction] 97 % Sravan Resendiz [facility] 05-16-2022 15:05-0500 Systolic blood pressure 124 mm[Hg] Sravan Resendiz [facility] 05-13-2022 15:12-0500 Body temperature 97.39 [degF] Gena Saab [facility] 05-13-2022 15:12-0500 Diastolic blood pressure 76 mm[Hg] Gena Saab [facility] 05-13-2022 15:12-0500 Heart rate 85 /min Gena Saab [facility] 05-13-2022 15:12-0500 SaO2% (BldA) [Mass fraction] 89 % Gena Saab [facility] 05-13-2022 15:12-0500 Systolic blood pressure 125 mm[Hg] Gena Saab [facility] 05-12-2022 13:43-0500 Body height 163.83 cm Varsha Upton LPN [facility], [facility].; [facility], [facility]. 05-12-2022 13:43-0500 Body mass index (BMI) [Ratio] 29.24 kg/m2 Varsha Upton LPN [facility], [facility].; [facility], [facility]. 05-12-2022 13:43-0500 Body surface area Derived from formula 1.85 m2 Varsha Upton LPN [facility], [facility].; [facility], [facility]. 05-12-2022 13:43-0500 Body weight 78.47 kg Varsha Upton LPN [facility], [facility].; [facility], [facility]. 05-12-2022 13:43-0500 Diastolic blood pressure 67 mm[Hg] Varsha Upton LPN [facility], [facility].; [facility], [facility]. 05-12-2022 13:43-0500 Heart rate 69 /min Varsha Upton LPN [facility], [facility].; [facility], [facility]. 05-12-2022 13:43-0500 Inhaled oxygen concentration 30 % Varsha Upton LPN [facility], [facility].; [facility], [facility]. 05-12-2022 13:43-0500 SaO2% (BldA) [Mass fraction] 98 % Varsha Upton LPN [facility], [facility].; [facility]. 05-12-2022 13:43-0500 Systolic blood pressure 119 mm[Hg] Varsha Upton LPN [facility].; [facility]. 05-12-2022 13:43-0500 2.5 L/min Varsha Upton LPN [facility].; [facility]. 05-12-2022 10:03-0500 Body temperature 97.39 [degF] Андрей Claros RN [facility] 05-12-2022 10:03-0500 Diastolic blood pressure 60 mm[Hg] Андрей Claros RN [facility] 05-12-2022 10:03-0500 Heart rate 72 /min Андрей Claros RN [facility] 05-12-2022 10:03-0500 Respiratory rate 16 /min Андрей Claros RN [facility] 05-12-2022 10:03-0500 SaO2% (BldA) [Mass fraction] 97 % Андрей Claros RN [facility] 05-12-2022 10:03-0500 Systolic blood pressure 116 mm[Hg] Андрей Claros RN [facility] 05-10-2022 10:29-0500 Body temperature 98.6 [degF] Renee MCALLISTER [facility] 05-10-2022 10:29-0500 Diastolic blood pressure 56 mm[Hg] Renee MCALLISTER [facility] 05-10-2022 10:29-0500 Heart rate 88 /min Renee MCALLISTER [facility] 05-10-2022 10:29-0500 Respiratory rate 16 /min Renee MCALLISTER [facility] 05-10-2022 10:29-0500 SaO2% (BldA) [Mass fraction] 98 % Renee MCALLISTER [facility] 05-10-2022 10:29-0500 Systolic blood pressure 114 mm[Hg] Renee MCALLISTER [facility] 05-10-2022 09:35-0500 Body temperature 98.2 [degF] Sravan Martín R D INTERN [facility] 05-10-2022 09:35-0500 Diastolic blood pressure 54 mm[Hg] Sravan Martín [facility] 05-10-2022 09:35-0500 Heart rate 82 /min Sravan Martín [facility] 05-10-2022 09:35-0500 Respiratory rate 16 /min Sravan Martín R D INTERN [facility] 05-10-2022 09:35-0500 SaO2% (BldA) [Mass fraction] 96 % Sravan Martín [facility] 05-10-2022 09:35-0500 Systolic blood pressure 111 mm[Hg] Sravan Resendiz R D INTERN [facility] 05-08-2022 14:28-0500 Body temperature 97.5 [degF] Sachin Claire PT [facility] 05-08-2022 14:28-0500 Diastolic blood pressure 50 mm[Hg] Sachin Claire PT [facility] 05-08-2022 14:28-0500 Heart rate 71 /min Sachin Claire PT [facility] 05-08-2022 14:28-0500 Respiratory rate 16 /min Sachin Claire PT [facility] 05-08-2022 14:28-0500 SaO2% (BldA) [Mass fraction] 97 % Sachin Claire PT [facility] 05-08-2022 14:28-0500 Systolic blood pressure 97 mm[Hg] Sachin Claire PT [facility] 05-05-2022 12:53-0500 Body temperature 98.2 [degF] Renee MCALLISTER [facility] 05-05-2022 12:53-0500 Diastolic blood pressure 64 mm[Hg] Renee MCALLISTER [facility] 05-05-2022 12:53-0500 Heart rate 77 /min Renee MCALLISTER [facility] 05-05-2022 12:53-0500 Respiratory rate 16 /min Renee MCALLISTER [facility] 05-05-2022 12:53-0500 SaO2% (BldA) [Mass fraction] 95 % Renee MCALLISTER [facility] 05-05-2022 12:53-0500 Systolic blood pressure 114 mm[Hg] Renee MCALLISTER [facility] 05-05-2022 09:58-0500 Body temperature 98.1 [degF] Андрей Claros RN [facility] 05-05-2022 09:58-0500 Diastolic blood pressure 62 mm[Hg] Андрей Claros RN [facility] 05-05-2022 09:58-0500 Heart rate 72 /min Андрей Claros RN [facility] 05-05-2022 09:58-0500 Respiratory rate 16 /min Андрей Claros RN [facility] 05-05-2022 09:58-0500 SaO2% (BldA) [Mass fraction] 98 % Андрей Claros RN [facility] 05-05-2022 09:58-0500 Systolic blood pressure 122 mm[Hg] Андрей Claros RN [facility] 05-02-2022 15:52-0500 Body temperature 97.7 [degF] Gena Saab [facility] 05-02-2022 15:52-0500 Diastolic blood pressure 46 mm[Hg] Gena Saab [facility] 05-02-2022 15:52-0500 Heart rate 76 /min Gena Saab [facility] 05-02-2022 15:52-0500 SaO2% (BldA) [Mass fraction] 98 % Gena Saab [facility] 05-02-2022 15:52-0500 Systolic blood pressure 97 mm[Hg] Gena Saab [facility] 05-01-2022 11:41-0500 Body height 170.2 cm Melida Cook [facility] 05-01-2022 11:41-0500 Body mass index (BMI) [Ratio] 26.63 kg/m2 Melida Cook [facility] 05-01-2022 11:41-0500 Body temperature 97.59 [degF] Melida Cook [facility] 05-01-2022 11:41-0500 Body weight 77.11 kg Melida Cook [facility] 05-01-2022 11:41-0500 Diastolic blood pressure 70 mm[Hg] Melida Cook [facility] 05-01-2022 11:41-0500 Heart rate 70 /min Melida Cook [facility] 05-01-2022 11:41-0500 Respiratory rate 18 /min Meldia Cook [facility] 05-01-2022 11:41-0500 SaO2% (BldA) [Mass fraction] 96 % Melida Cook [facility] 05-01-2022 11:41-0500 Systolic blood pressure 110 mm[Hg] Melida Cook [facility] 04-14-2022 13:22-0500 Body height 163.83 cm Varsha Upton LPN [facility], [facility].; [facility], [facility]. 04-14-2022 13:22-0500 Body mass index (BMI) [Ratio] 30.08 kg/m2 Varsha Upton LPN [facility], [facility].; [employer] [facility], [facility]. 04-14-2022 13:22-0500 Body surface area Derived from formula 1.87 m2 Varsha Upton LPN [facility], [facility].; [employer], [facility]. 04-14-2022 13:22-0500 Body weight 80.74 kg Varsha Upton LPN [facility], [facility].; [employer] [facility]. 04-14-2022 13:22-0500 Diastolic blood pressure 71 mm[Hg] Varsha Upton LPN [facility], [facility].; [employer] [facility], [facility]. 04-14-2022 13:22-0500 Heart rate 80 /min Vasrha Upton LPN [facility], [facility].; [employer], [facility]. 04-14-2022 13:22-0500 Systolic blood pressure 121 mm[Hg] Varsha Upton LPN [facility], [facility].; [employer], [facility]. 04-05-2022 15:31-0500 Body mass index (BMI) [Ratio] 28.04 kg/m2 Sherry George DO Work Phone: [facility] 04-05-2022 15:31-0500 Body weight 81.19 kg Sherry George DO Work Phone: [facility] 04-05-2022 15:31-0500 Diastolic blood pressure 57 mm[Hg] Sherry George DO Work Phone: [facility] 04-05-2022 15:31-0500 Heart rate 78 /min Sherry George DO Work Phone: [facility] 04-05-2022 15:31-0500 Respiratory rate 16 /min Sherry George DO Work Phone: [facility] 04-05-2022 15:31-0500 Systolic blood pressure 106 mm[Hg] Sherry George DO Work Phone: [facility] 03-29-2022 10:07-0500 Body height 163.83 cm Varsha Obrien MA [employer] [facility].; [employer] [facility]. 03-29-2022 10:07-0500 Body mass index (BMI) [Ratio] 30.08 kg/m2 Varsha Obrien MA [facility], [facility].; [employer], [facility]. 03-29-2022 10:07-0500 Body surface area Derived from formula 1.87 m2 Varsha Obrien MA [facility], [facility]. 03-29-2022 10:07-0500 Body weight 80.74 kg Varsha Obrien MA [facility], [facility].; [employer], [facility]. 03-29-2022 10:07-0500 Diastolic blood pressure 64 mm[Hg] Varsha Obrien MA [facility], [facility].; [employer] [facility]. 03-29-2022 10:07-0500 Heart rate 69 /min Varsha Obrien MA [facility], [facility].; [employer], [facility]. 03-29-2022 10:07-0500 Systolic blood pressure 104 mm[Hg] Varsha Obrien MA [facility], [facility].; [employer], [facility]. 02-22-2022 13:15-0500 Body height 163.83 cm Varsha Obrien MA [facility], [facility].; [employer], [facility]. 02-22-2022 13:15-0500 Body mass index (BMI) [Ratio] 32.79 kg/m2 Varsha Obrien MA [facility], [facility].; [employer], [facility]. 02-22-2022 13:15-0500 Body surface area Derived from formula 1.94 m2 Varsha Obrien MA [facility], [facility].; [employer], [facility]. 02-22-2022 13:15-0500 Body weight 88 kg Varsha Obrien MA [employer] [facility], [facility].; [employer], [facility]. 02-22-2022 13:15-0500 Diastolic blood pressure 47 mm[Hg] Varsha Obrien MA [employer] [facility] [employer], [employer] 02-22-2022 13:15-0500 Heart rate 76 /min Varsha Obrien MA [employer] [facility], [facility].; [employer], [facility]. 02-22-2022 13:15-0500 Inhaled oxygen concentration 20 % Varsha Obrien MA [employer] [facility].; [employer]. 02-22-2022 13:15-0500 SaO2% (BldA) [Mass fraction] 83 % Varsha Obrien MA [employer]. 02-22-2022 13:15-0500 Systolic blood pressure 90 mm[Hg] Varsha Obrien MA [facility] 12-23-2021 08:19-0400 Body height 163.83 cm Zack Olmos MD Work Phone: [facility] [employer]. 12-23-2021 08:19-0400 Body mass index (BMI) [Ratio] 32.79 kg/m2 Zack Olmos MD Work Phone: [facility] [employer]. 12-23-2021 08:19-0400 Body surface area Derived from formula 1.94 m2 Zack Olmos MD Work Phone: [facility] [employer]. 12-23-2021 08:19-0400 Body weight 88 kg Zack Olmos MD Work Phone: [facility] [employer]. 12-23-2021 08:19-0400 Diastolic blood pressure 72 mm[Hg] Zack Olmos MD Work Phone: [facility] [employer]. 12-23-2021 08:19-0400 Heart rate 79 /min Zack Olmos MD Work Phone: [employer] 12-23-2021 08:19-0400 Inhaled oxygen concentration 36 % Zack Olmos MD Work Phone: [employer] 12-23-2021 08:19-0400 SaO2% (BldA) [Mass fraction] 98 % Zack Olmos MD Work Phone: [facility] [employer] [facility] 12-23-2021 08:19-0400 Systolic blood pressure 128 mm[Hg] Zack [facility]mos MD [facility]: [facility].; [facility] 12-23-2021 08:19-0400 4 L/min Zack Olmos MD Work Phone: [facility] 09-09-2021 14:33-0400 Body temperature 97.9 [degF] [facility] 09-09-[facility]21 14:33-0400 Diastolic blood pressure 65 mm[Hg] Donaldo [facility] 09-09-2021 14:33-0400 Heart rate 67 /min [facility] 09-09-2021 14:33-0400 Respiratory rate 16 /min [facility] 09-09-2021 14:33-0400 SaO2% (BldA) [Mass fraction] 94 % [facility]-09-[facility]21 14:33-0400 Systolic blood pressure 117 mm[Hg] [facility] 09-07-2021 15:08-0400 Body temperature 97.81 [degF] [facility] 09-07-2021 15:08-0400 Diastolic blood pressure 73 mm[Hg] [facility]-07-[facility]21 15:08-0400 Heart rate 63 /min Donaldo [facility] 09-07-2021 15:08-0400 Respiratory rate 15 /min Donaldo [facility] 09-07-2021 15:08-0400 SaO2% (BldA) [Mass fraction] 93 % [facility] 09-07-2021 15:08-0400 Systolic blood pressure 120 mm[Hg] Donaldo [facility] 09-07-2021 08:34-0400 Body temperature 98.1 [degF] Андрей Claros RN [facility] 09-07-2021 08:34-0400 Diastolic blood pressure 50 mm[Hg] Андрей Claros RN [facility] 09-07-2021 08:34-0400 Heart rate 66 /min Андрей Claros RN [facility] 09-07-2021 08:34-0400 Respiratory rate 16 /min Андрей Claros RN [facility] 09-07-2021 08:34-0400 SaO2% (BldA) [Mass fraction] 95 % Андрей Claros RN [facility] 09-07-2021 08:34-0400 Systolic blood pressure 98 mm[Hg] Андрей Claros RN [facility] 09-01-2021 10:02-0400 Body temperature 97.9 [degF] Donaldo Thrush [facility] 09-01-2021 10:02-0400 Diastolic blood pressure 85 mm[Hg] Donaldo Thrush [facility] 09-01-2021 10:02-0400 Heart rate 67 /min Donaldo Thrush [facility] 09-01-2021 10:02-0400 Respiratory rate 16 /min Donaldo Thrush [facility] 09-01-2021 10:02-0400 SaO2% (BldA) [Mass fraction] 97 % Donaldo Thrush [facility] 09-01-2021 10:02-0400 Systolic blood pressure 121 mm[Hg] Donaldo Thrush [facility] 08-30-2021 10:10-0400 Body temperature 97.2 [degF] Donaldo Thrush [facility] 08-30-2021 10:10-0400 Diastolic blood pressure 63 mm[Hg] Donaldo Thrush [facility] 08-30-2021 10:10-0400 Heart rate 70 /min Donaldo Thrush [facility] 08-30-2021 10:10-0400 Respiratory rate 16 /min Donaldo Thrush [facility] 08-30-2021 10:10-0400 SaO2% (BldA) [Mass fraction] 95 % Dnoaldo Thrush [facility] 08-30-2021 10:10-0400 Systolic blood pressure 122 mm[Hg] Donaldo Thrush [facility] 08-26-2021 09:42-0400 Body temperature 98.1 [degF] Андрей Claros RN [facility] 08-26-2021 09:42-0400 Diastolic blood pressure 60 mm[Hg] Андрей Claros RN [facility] 08-26-2021 09:42-0400 Heart rate 78 /min Андрей Claros RN [facility] 08-26-2021 09:42-0400 Respiratory rate 16 /min Андрей Claros RN [facility] 08-26-2021 09:42-0400 SaO2% (BldA) [Mass fraction] 97 % Андрей Claros RN [facility] 08-26-2021 09:42-0400 Systolic blood pressure 112 mm[Hg] Андрей Claros RN [facility] 08-19-2021 09:15-0400 Body temperature 97.81 [degF] Андрей Claros RN [facility] 08-19-2021 09:15-0400 Diastolic blood pressure 62 mm[Hg] Андрей Claros RN [facility] 08-19-2021 09:15-0400 Respiratory rate 16 /min Андрей Claros RN [facility] 08-19-2021 09:15-0400 SaO2% (BldA) [Mass fraction] 94 % Андрей Claros RN [facility] 08-19-2021 09:15-0400 Systolic blood pressure 112 mm[Hg] Андрей Claros RN [facility] 08-17-2021 09:58-0400 SaO2% (BldA) [Mass fraction] 99 % Lenin Ramirez MD Work Phone: [facility] 08-17-2021 09:46-0400 Body height 170.2 cm Lenin Ramirez MD Work Phone: [facility] 08-17-2021 09:46-0400 Body mass index (BMI) [Ratio] 29.91 kg/m2 Lenin Ramirez MD Work Phone: [facility] 08-17-2021 09:46-0400 Body weight 86.64 kg Lenin Ramirez MD Work Phone: [facility] 08-17-2021 09:46-0400 Diastolic blood pressure 53 mm[Hg] Lenin Ramirez MD Work Phone: [facility] 08-17-2021 09:46-0400 Heart rate 85 /min Lenin Ramirez MD Work Phone: [facility] 08-17-2021 09:46-0400 Systolic blood pressure 114 mm[Hg] Lenin Ramirez MD Work Phone: [facility] 08-10-2021 09:01-0400 Body temperature 98.01 [degF] Андрей Claros HALEY [facility] 08-10-2021 09:01-0400 Diastolic blood pressure 60 mm[Hg] Андрей Claros RN [facility] 08-10-2021 09:01-0400 Heart rate 94 /min Андрей Claros RN [facility] 08-10-2021 09:01-0400 Respiratory rate 16 /min Андрей Claros RN [facility] 08-10-2021 09:01-0400 SaO2% (BldA) [Mass fraction] 96 % Андрей Claros RN [facility] 08-10-2021 09:01-0400 Systolic blood pressure 106 mm[Hg] Андрей Claros RN [facility] 08-03-2021 09:07-0400 Body temperature 98.2 [degF] Андрей Claros RN [facility] 08-03-2021 09:07-0400 Diastolic blood pressure 68 mm[Hg] Андрей Claros RN [facility] 08-03-2021 09:07-0400 Heart rate 67 /min Андрей Claros RN [facility] 08-03-2021 09:07-0400 Respiratory rate 16 /min Андрей Claros RN [facility] 08-03-2021 09:07-0400 SaO2% (BldA) [Mass fraction] 97 % Андрей Claros RN [facility] 08-03-2021 09:07-0400 Systolic blood pressure 104 mm[Hg] Андрей Claros RN [facility] 07-27-2021 09:02-0400 Body temperature 97.9 [degF] Андрей Claros RN [facility] 07-27-2021 09:02-0400 Diastolic blood pressure 78 mm[Hg] Андрей Claros RN [facility] 07-27-2021 09:02-0400 Heart rate 93 /min Андрей Claros RN [facility] 07-27-2021 09:02-0400 Respiratory rate 16 /min Андрей Claros RN [facility] 07-27-2021 09:02-0400 SaO2% (BldA) [Mass fraction] 93 % Андрей Claros RN [facility] 07-27-2021 09:02-0400 Systolic blood pressure 138 mm[Hg] Андрей Claros RN [facility] 07-15-2021 09:11-0400 Body temperature 98.91 [degF] Андрей Claros RN [facility] 07-15-2021 09:11-0400 Diastolic blood pressure 74 mm[Hg] Андрей Claros RN [facility] 07-15-2021 09:11-0400 Heart rate 76 /min Андрей Claros RN [facility] 07-15-2021 09:11-0400 Respiratory rate 16 /min Андрей Claros RN [facility] 07-15-2021 09:11-0400 SaO2% (BldA) [Mass fraction] 96 % Андрей Claros RN [facility] 07-15-2021 09:11-0400 Systolic blood pressure 118 mm[Hg] Андрей Claros RN [facility] 07-13-2021 09:20-0400 Body temperature 98.01 [degF] Андрей Claros RN [facility] 07-13-2021 09:20-0400 Diastolic blood pressure 62 mm[Hg] Андрей Claros RN [facility] 07-13-2021 09:20-0400 Heart rate 74 /min Андрей Claros RN [facility] 07-13-2021 09:20-0400 Respiratory rate 16 /min Андрей Claros RN [facility] 07-13-2021 09:20-0400 SaO2% (BldA) [Mass fraction] 97 % Андрей Claros RN [facility] 07-13-2021 09:20-0400 Systolic blood pressure 112 mm[Hg] Андрей Claros RN [facility] 07-06-2021 13:24-0400 Body height 163.83 cm Randi Silvestre [facility], [facility].; [employer] 07-06-2021 13:24-0400 Body mass index (BMI) [Ratio] 31.6 kg/m2 Randi Silvestre [facility], [facility].; [employer] [facility], [facility]. 07-06-2021 13:24-0400 Body surface area Derived from formula 1.91 m2 Randi Silvestre [facility], [facility].; [employer] [facility], [facility]. 07-06-2021 13:24-0400 Body weight 84.82 kg [facility], [facility].; [employer], [employer]. 07-06-2021 13:24-0400 Diastolic blood pressure 65 mm[Hg] Randi Silvestre [facility], [facility].; [employer] [facility], [facility]. 07-06-2021 13:24-0400 Heart rate 90 /min Randi Silvestre [facility], [facility].; [employer] [facility]. 07-06-2021 13:24-0400 Inhaled oxygen concentration 32 % Randi Silvestre [facility].; [facility]. 07-06-2021 13:24-0400 SaO2% (BldA) [Mass fraction] 88 % Randi Silvestre [facility].; [facility], [facility]. 07-06-2021 13:24-0400 Systolic blood pressure 106 mm[Hg] Randi Silvestre [facility].; [facility], [facility]. 07-06-2021 13:24-0400 3 L/min Randi Silvestre [facility].; [facility], [facility]. 07-06-2021 09:53-0400 Body temperature 98.01 [degF] Андрей Claros RN [facility] 07-06-2021 09:53-0400 Diastolic blood pressure 80 mm[Hg] Андрей Claros RN [facility] 07-06-2021 09:53-0400 Heart rate 76 /min Андрей Claros RN [facility] 07-06-2021 09:53-0400 Respiratory rate 16 /min Андрей Claros RN [facility] 07-06-2021 09:53-0400 SaO2% (BldA) [Mass fraction] 97 % Андрей Claros RN [facility] 07-06-2021 09:53-0400 Systolic blood pressure 136 mm[Hg] Андрей Claros RN [facility] 07-02-2021 09:14-0400 Body height 163.83 cm Varsha Upton LPN [facility], [facility].; [facility], [facility]. 07-02-2021 09:14-0400 Body mass index (BMI) [Ratio] 31.6 kg/m2 Varsha Upton LPN [facility].; [facility], [facility]. 07-02-2021 09:14-0400 Body surface area Derived from formula 1.91 m2 Varsha Upton LPN [facility], [facility].; [facility], [facility]. 07-02-2021 09:14-0400 Body temperature 101.6 [degF] Varsha Upton LPN [facility], [facility].; [facility], [facility]. 07-02-2021 09:14-0400 Body weight 84.82 kg Varsha Upton LPN [facility], [facility].; [facility]. 07-02-2021 09:14-0400 Diastolic blood pressure 70 mm[Hg] Varsha Upton LPN [facility].; [facility]. 07-02-2021 09:14-0400 Heart rate 112 /min Varsha Upton LPN [facility].; [facility]. 07-02-2021 09:14-0400 Inhaled oxygen concentration 20 % Varsha Upton LPN [facility].; [facility]. 07-02-2021 09:14-0400 SaO2% (BldA) [Mass fraction] 78 % Varsha Upton LPN [facility].; [facility] 07-02-2021 09:14-0400 Systolic blood pressure 136 mm[Hg] Varsha Upton LPN [facility].; [facility]. 06-29-2021 09:39-0400 Body temperature 98.1 [degF] Андрей Claros RN [facility] 06-29-2021 09:39-0400 Diastolic blood pressure 62 mm[Hg] Андрей Hyacinth RN [facility] 06-29-2021 09:39-0400 Heart rate 73 /min Андрей Hyacinth RN [facility] 06-29-2021 09:39-0400 Respiratory rate 18 /min Андрей Hyacinth HALEY [facility] 06-29-2021 09:39-0400 Systolic blood pressure 108 mm[Hg] Андрей Hyacinth RN [facility] 06-22-2021 11:15-0400 Body temperature 97.81 [degF] Андрей Claros RN [facility] 06-22-2021 11:15-0400 Diastolic blood pressure 60 mm[Hg] Андрей Hyacinth RN [facility] 06-22-2021 11:15-0400 Heart rate 84 /min Андрей Claros RN [facility] 06-22-2021 11:15-0400 Respiratory rate 16 /min Андрей Claros RN [facility] 06-22-2021 11:15-0400 SaO2% (BldA) [Mass fraction] 89 % Андрей Claros RN [facility] 06-22-2021 11:15-0400 Systolic blood pressure 110 mm[Hg] Андрей Claros RN [facility] 06-15-2021 11:06-0400 Body temperature 98.49 [degF] Андрей Claros RN [facility] 06-15-2021 11:06-0400 Diastolic blood pressure 68 mm[Hg] Андрей Claros RN [facility] 06-15-2021 11:06-0400 Heart rate 78 /min Андрей Claros RN [facility] 06-15-2021 11:06-0400 Respiratory rate 16 /min Андрей Claros RN [facility] 06-15-2021 11:06-0400 SaO2% (BldA) [Mass fraction] 89 % Андрей Claros RN [facility] 06-15-2021 11:06-0400 Systolic blood pressure 104 mm[Hg] Андрей Claros RN [facility] 06-08-2021 10:05-0400 Body temperature 98.01 [degF] Андрей Claros RN [facility] 06-08-2021 10:05-0400 Diastolic blood pressure 58 mm[Hg] Андрей Claros RN [facility] 06-08-2021 10:05-0400 Heart rate 76 /min Андрей Claros RN [facility] 06-08-2021 10:05-0400 Respiratory rate 16 /min Андрей Claros RN [facility] 06-08-2021 10:05-0400 SaO2% (BldA) [Mass fraction] 92 % Андрей Claros RN [facility] 06-08-2021 10:05-0400 Systolic blood pressure 104 mm[Hg] Андрей Claros RN [facility] 06-01-2021 09:29-0400 Body temperature 98.49 [degF] Андрей Claros RN [facility] 06-01-2021 09:29-0400 Diastolic blood pressure 60 mm[Hg] Андрей Claros RN [facility] 06-01-2021 09:29-0400 Heart rate 62 /min Андрей Claros RN [facility] 06-01-2021 09:29-0400 Respiratory rate 18 /min Андрей Claros RN [facility] 06-01-2021 09:29-0400 SaO2% (BldA) [Mass fraction] 94 % Андрей Claros RN [facility] 06-01-2021 09:29-0400 Systolic blood pressure 104 mm[Hg] Андрей Claros RN [facility] 05-26-2021 09:46-0400 Body temperature 97.5 [degF] Андрей Claros RN [facility] 05-26-2021 09:46-0400 Diastolic blood pressure 60 mm[Hg] Андрей Claros RN [facility] 05-26-2021 09:46-0400 Heart rate 77 /min Андрей Claros RN [facility] 05-26-2021 09:46-0400 Respiratory rate 18 /min Андрей Claros RN [facility] 05-26-2021 09:46-0400 SaO2% (BldA) [Mass fraction] 93 % Андрей Claros RN [facility] 05-26-2021 09:46-0400 Systolic blood pressure 138 mm[Hg] Андрей Claros RN [facility] 05-17-2021 10:23-0500 Body temperature 98.4 [degF] Андрей Claros RN [facility] 05-17-2021 10:23-0500 Diastolic blood pressure 60 mm[Hg] Андрей Claros RN [facility] 05-17-2021 10:23-0500 Heart rate 74 /min Андрей Claros RN [facility] 05-17-2021 10:23-0500 Respiratory rate 16 /min Андрей Claros RN [facility] 05-17-2021 10:23-0500 SaO2% (BldA) [Mass fraction] 92 % Андрей Claros RN [facility] 05-17-2021 10:23-0500 Systolic blood pressure 120 mm[Hg] Андрей Claros RN [facility] 05-05-2021 10:49-0500 Body temperature 97.7 [degF] Андрей Claros RN [facility] 05-05-2021 10:49-0500 Diastolic blood pressure 74 mm[Hg] Андрей Claros RN [facility] 05-05-2021 10:49-0500 Heart rate 67 /min Андрей Claros RN [facility] 05-05-2021 10:49-0500 Respiratory rate 16 /min Андрей Claros RN [facility] 05-05-2021 10:49-0500 SaO2% (BldA) [Mass fraction] 96 % Андрей Claros RN [facility] 05-05-2021 10:49-0500 Systolic blood pressure 112 mm[Hg] Андрей Claros RN [facility] 04-28-2021 10:01-0500 Body temperature 97.59 [degF] Андрей Claros RN [facility] 04-28-2021 10:01-0500 Diastolic blood pressure 50 mm[Hg] Андрей Claros RN [facility] 04-28-2021 10:01-0500 Heart rate 76 /min Андрей Claros RN [facility] 04-28-2021 10:01-0500 Respiratory rate 16 /min Андрей Claros RN [facility] 04-28-2021 10:01-0500 SaO2% (BldA) [Mass fraction] 97 % Андрей Claros RN [facility] 04-28-2021 10:01-0500 Systolic blood pressure 112 mm[Hg] Андрей Claros RN [facility] 04-23-2021 11:42-0500 Body temperature 97.59 [degF] Андрей Claros RN [facility] 04-23-2021 11:42-0500 Diastolic blood pressure 70 mm[Hg] Андрей Claros RN [facility] 04-23-2021 11:42-0500 Heart rate 76 /min Андрей Claros RN [facility] 04-23-2021 11:42-0500 Respiratory rate 16 /min Андрей Claros RN [facility] 04-23-2021 11:42-0500 SaO2% (BldA) [Mass fraction] 97 % Андрей Claros RN [facility] 04-23-2021 11:42-0500 Systolic blood pressure 118 mm[Hg] Андрей Claros RN [facility] 04-09-2021 11:23-0500 Body temperature 98.01 [degF] Андрей Claros RN [facility] 04-09-2021 11:23-0500 Diastolic blood pressure 50 mm[Hg] Андрей Claros RN [facility] 04-09-2021 11:23-0500 Heart rate 64 /min Андрей Claros RN [facility] 04-09-2021 11:23-0500 Respiratory rate 16 /min Андрей Claros RN [facility] 04-09-2021 11:23-0500 SaO2% (BldA) [Mass fraction] 95 % Андрей Claros RN [facility] 04-09-2021 11:23-0500 Systolic blood pressure 106 mm[Hg] Андрей Claros RN [facility] 04-01-2021 09:25-0500 Body height 163.83 cm Rosy Tavarez LPN [facility], [facility].; [facility], [facility]. 04-01-2021 09:25-0500 Body mass index (BMI) [Ratio] 31.6 kg/m2 Rosy Tavarez LPN [facility], [facility].; [facility], [facility] 04-01-2021 09:25-0500 Body surface area Derived from formula 1.91 m2 Rosy Tavarez LPN [facility].; [facility]. 04-01-2021 09:25-0500 Body weight 84.82 kg Rosy Tavarez [facility].; [facility]. 04-01-2021 09:25-0500 Diastolic blood pressure 68 mm[Hg] Rosy Tavarez [facility].; [facility]. 04-01-2021 09:25-0500 Heart rate 74 /min [facility]. 04-01-2021 09:25-0500 Systolic blood pressure 118 mm[Hg] Rosy Tavarez [facility].; [facility]. 03-31-2021 10:24-0500 Body temperature 98.2 [degF] Андрей Claros RN [facility] 03-31-2021 10:24-0500 Diastolic blood pressure 60 mm[Hg] Андрей Claros RN [facility] 03-31-2021 10:24-0500 Heart rate 65 /min Андрей Claros RN [facility] 03-31-2021 10:24-0500 Respiratory rate 16 /min Андрей Claros RN [facility] 03-31-2021 10:24-0500 SaO2% (BldA) [Mass fraction] 95 % Андрей Claros RN [facility] 03-31-2021 10:24-0500 Systolic blood pressure 104 mm[Hg] Андрей Claros RN [facility] 03-22-2021 14:10-0500 Body temperature 98.91 [degF] Андрей Claros RN [facility] 03-22-2021 14:10-0500 Diastolic blood pressure 58 mm[Hg] Андрей Claros RN [facility] 03-22-2021 14:10-0500 Heart rate 68 /min Андрей Claros RN [facility] 03-22-2021 14:10-0500 Respiratory rate 16 /min Андрей Claros RN [facility] 03-22-2021 14:10-0500 SaO2% (BldA) [Mass fraction] 97 % Андрей Claros RN [facility] 03-22-2021 14:10-0500 Systolic blood pressure 104 mm[Hg] Андрей Claros RN [facility] 03-19-2021 15:04-0500 Body temperature 97.9 [degF] Андрей Claros RN [facility] 03-19-2021 15:04-0500 Diastolic blood pressure 48 mm[Hg] Андрей Claros RN [facility] 03-19-2021 15:04-0500 Heart rate 62 /min [facility]рей [facility]os [facility] [facility] [place] 03-19-2021 15:04-0500 Respiratory rate 16 /min Андрей Claros RN [facility] [place] 03-19-2021 15:04-0500 SaO2% (BldA) [Mass fraction] 96 % Андрей Claros RN [facility] [place] 03-19-2021 15:04-0500 Systolic blood pressure 98 mm[Hg] Андрей Claros RN [facility] [place] 03-17-2021 09:16-0500 Body temperature 98.8 [degF] Ewa Garcia [facility] 03-17-2021 09:16-0500 Diastolic blood pressure 58 mm[Hg] Ewa Garcia [facility] 03-17-2021 09:16-0500 Heart rate 74 /min Ewa Garcia [facility] 03-17-2021 09:16-0500 Respiratory rate 16 /min Ewa Garcia [facility] 03-17-2021 09:16-0500 SaO2% (BldA) [Mass fraction] 95 % Ewa Garcia [facility] 03-17-2021 09:16-0500 Systolic blood pressure 116 mm[Hg] Ewa Garcia [facility] 03-10-2021 12:19-0500 Body temperature 98.1 [degF] Андрей Claros RN [facility] [place] 03-10-2021 12:19-0500 Diastolic blood pressure 60 mm[Hg] Андрей Claros RN [facility] [place] 03-10-2021 12:19-0500 Heart rate 64 /min Андрей Claros RN [facility] [place] 03-10-2021 12:19-0500 Respiratory rate 14 /min Андрей Claros RN [facility] [place] 03-10-2021 12:19-0500 SaO2% (BldA) [Mass fraction] 97 % Андрей Claros RN [facility] [place] 03-10-2021 12:19-0500 Systolic blood pressure 104 mm[Hg] Андрей Claros RN [facility] [place] 03-05-2021 11:46-0500 Body mass index (BMI) [Ratio] 28.19 kg/m2 Melida Cook [facility] 03-05-2021 11:46-0500 Body temperature 97.59 [degF] Melida Cook RN [facility] [place] 03-05-2021 11:46-0500 Body weight 81.65 kg Melida Cook RN [facility] [place] 03-05-2021 11:46-0500 Diastolic blood pressure 70 mm[Hg] Melida Cook RN [facility] [place] 03-05-2021 11:46-0500 Heart rate 65 /min Melida Cook RN [facility] [place] 03-05-2021 11:46-0500 Respiratory rate 18 /min Melida Cook RN [facility] [place] 03-05-2021 11:46-0500 SaO2% (BldA) [Mass fraction] 96 % Melida Cook [facility] 03-05-2021 11:46-0500 Systolic blood pressure 110 mm[Hg] Melida Cook [facility] 03-03-2021 11:38-0500 Body temperature 98.01 [degF] Андрей Claros RN [facility] [place] 03-03-2021 11:38-0500 Diastolic blood pressure 62 mm[Hg] Андрей Claros RN [facility] [place] 03-03-2021 11:38-0500 Heart rate 77 /min Андрей Claros RN [facility] [place] 03-03-2021 11:38-0500 Respiratory rate 16 /min Андрей Claros RN [facility] [place] 03-03-2021 11:38-0500 SaO2% (BldA) [Mass fraction] 98 % Андрей Claros RN [facility] [place] 03-03-2021 11:38-0500 Systolic blood pressure 104 mm[Hg] Андрей Claros RN [facility] [place] 02-19-2021 12:01-0500 Body temperature 98.01 [degF] Rosy Rodriguez RN [facility] [place] 02-19-2021 12:01-0500 Heart rate 70 /min Rosy Rodriguez RN [facility] [place] 02-19-2021 12:01-0500 Respiratory rate 16 /min Rosy Rodriguez RN [facility] [place] 02-19-2021 12:01-0500 SaO2% (BldA) [Mass fraction] 98 % Rosy Rodriguez RN [facility] [place] 02-15-2021 13:04-0500 Body temperature 98.01 [degF] Rosy Rodriguez RN [facility] [place] 02-15-2021 13:04-0500 Diastolic blood pressure 70 mm[Hg] Rosy Rodriguez RN [facility] [place] 02-15-2021 13:04-0500 Heart rate 77 /min Rosy Rodriguez RN [facility] [place] 02-15-2021 13:04-0500 Respiratory rate 16 /min Rosy Rodriguez RN [facility] [place] 02-15-2021 13:04-0500 SaO2% (BldA) [Mass fraction] 94 % Rosy Rodriguez RN [facility] [place] 02-15-2021 13:04-0500 Systolic blood pressure 120 mm[Hg] Rosy Rodriguez RN [facility] [place] 02-05-2021 14:04-0500 Body temperature 98.01 [degF] Rosy Rodriguez RN [facility] [place] 02-05-2021 14:04-0500 Heart rate 70 /min Rosy Rodriguez RN [facility] [place] 02-05-2021 14:04-0500 Respiratory rate 16 /min Rosy Rodriguez RN [facility] [place] 02-05-2021 14:04-0500 SaO2% (BldA) [Mass fraction] 96 % Rosy Rodriguez RN [facility] [place] 02-03-2021 10:57-0500 Body height 170.2 cm Jalil Sparks MD Work Phone: [facility] [place] 02-03-2021 10:57-0500 Body mass index (BMI) [Ratio] 27.91 kg/m2 Jalil Sparks MD Work Phone: [facility] [place] 02-03-2021 10:57-0500 Body temperature 97.3 [degF] Jalil Sparks MD Work Phone: [facility] [place] 02-03-2021 10:57-0500 Body weight 80.83 kg Jalil Sparks MD Work Phone: [facility] [place] 02-03-2021 10:57-0500 Diastolic blood pressure 58 mm[Hg] Jalil Sparks MD Work Phone: [facility] [place] 02-03-2021 10:57-0500 Heart rate 75 /min Jalil Sparks MD Work Phone: [facility] [place] 02-03-2021 10:57-0500 SaO2% (BldA) [Mass fraction] 96 % Jalil Sparks MD Work Phone: [facility] [place] 02-03-2021 10:57-0500 Systolic blood pressure 111 mm[Hg] Jalil Sparks MD Work Phone: [facility] [place] 02-03-2021 08:24-0500 Body temperature 98.1 [degF] Bonnie Ferguson RN [facility] [place] 02-03-2021 08:24-0500 Diastolic blood pressure 50 mm[Hg] Bonnie Ferguson RN [facility] [place] 02-03-2021 08:24-0500 Heart rate 75 /min Bonnie Ferguson RN [facility] [place] 02-03-2021 08:24-0500 Respiratory rate 18 /min Bonnie Ferguson RN [facility] [place] 02-03-2021 08:24-0500 SaO2% (BldA) [Mass fraction] 96 % Bonnie Ferguson [facility] 02-03-2021 08:24-0500 Systolic blood pressure 132 mm[Hg] Bonnie Ferguson RN [facility] [place] 02-01-2021 14:13-0500 Body temperature 98.01 [degF] Rosy Rodriguez RN [facility] [place] 02-01-2021 14:13-0500 Respiratory rate 16 /min Rosy Rodriguez RN [facility] [place] 02-01-2021 14:13-0500 SaO2% (BldA) [Mass fraction] 96 % Rosy Rodriguez RN [facility] [place] 01-29-2021 00:00-0500 Body temperature 98.01 [degF] Rosy Rodriguez RN [facility] [place] 01-29-2021 00:00-0500 Diastolic blood pressure 60 mm[Hg] Rosy Rodriguez RN [facility] [place] 01-29-2021 00:00-0500 Heart rate 78 /min Rosy Rodriguez RN [facility] [place] 01-29-2021 00:00-0500 Respiratory rate 16 /min Rosy Jennifer RN [facility] [place] 01-29-2021 00:00-0500 SaO2% (BldA) [Mass fraction] 96 % Rosy Rodriguez RN [facility] [place] 01-29-2021 00:00-0500 Systolic blood pressure 110 mm[Hg] Rosy Rodriguez RN [facility] [place] 01-27-2021 10:02-0500 Body temperature 98.01 [degF] Rosy Rodriguez RN [facility] [place] 01-27-2021 10:02-0500 Diastolic blood pressure 60 mm[Hg] Rosy Rodriguez RN [facility] [place] 01-27-2021 10:02-0500 Heart rate 80 /min Rosy Rodriguez RN [facility] [place] 01-27-2021 10:02-0500 Respiratory rate 16 /min Rosy Rodriguez RN [facility] [place] 01-27-2021 10:02-0500 SaO2% (BldA) [Mass fraction] 94 % Rosy [place] RN [facility] [place] 01-27-2021 10:02-0500 Systolic blood pressure 110 mm[Hg] Rosy Jennifer RN [facility] [place] 01-25-2021 10:00-0500 Body temperature 98.01 [degF] Rosy Jennifer RN [facility] [place] 01-25-2021 10:00-0500 Diastolic blood pressure 70 mm[Hg] Rosy Rodriguez RN [facility] [place] 01-25-2021 10:00-0500 Heart rate 88 /min Rosy [place] RN [facility] [place] 01-25-2021 10:00-0500 Respiratory rate 16 /min Rosy [place] RN [facility] [place] 01-25-2021 10:00-0500 SaO2% (BldA) [Mass fraction] 98 % Rosy Jennifer RN [facility] [place] 01-25-2021 10:00-0500 Systolic blood pressure 110 mm[Hg] Rosy Jennifer RN [facility] [place] 01-22-2021 13:55-0500 Body mass index (BMI) [Ratio] 27.72 kg/m2 Rosy Jennifer RN [facility] [place] 01-22-2021 13:55-0500 Body weight 80.29 kg Rosy Jennifer RN [facility] [place] 01-22-2021 13:55-0500 Diastolic blood pressure 80 mm[Hg] Rosy Rodriguez RN [facility] [place] 01-22-2021 13:55-0500 Systolic blood pressure 101 mm[Hg] Rosy Rodriguez RN [facility] [place] 01-20-2021 10:22-0500 Body temperature 98.2 [degF] Alyssa Cortez RN [facility] [place] 01-20-2021 10:22-0500 Heart rate 63 /min Alyssa Cortez RN [facility] [place] 01-20-2021 10:22-0500 SaO2% (BldA) [Mass fraction] 93 % Alyssa Cortez RN [facility] [place] 01-13-2021 15:21-0400 Body height 170.2 cm Jalil Sparks MD Work Phone: [place] [address]-03-2021 15:21-0400 Body temperature 97.59 [degF] Jalil Sparks MD Work Phone: [facility] [place] 01-13-2021 15:21-0400 Diastolic blood pressure 73 mm[Hg] Jalil Sparks MD Work Phone: [facility] [place] 01-13-2021 15:21-0400 Heart rate 68 /min Jalil Sparks MD Work Phone: [facility] [place] 01-13-2021 15:21-0400 SaO2% (BldA) [Mass fraction] 91 % Jalil Sparks MD Work Phone: [facility] [place] 01-13-2021 15:21-0400 Systolic blood pressure 146 mm[Hg] Jalil Sparks MD Work Phone: [facility] [place] 01-04-2021 14:50-0400 Body height 170.2 cm [place] [employer] Work Phone: [facility] [place] 01-04-2021 14:50-0400 Body mass index (BMI) [Ratio] 29.76 kg/m2 [place] [employer] Work Phone: [facility] [place] 01-04-2021 14:50-0400 Body weight 86.18 kg [place] [employer] Work Phone: [facility] [place] 01-04-2021 14:50-0400 Diastolic blood pressure 57 mm[Hg] [place] [employer] Work Phone: [facility] [place] 01-04-2021 14:50-0400 Heart rate 74 /min [place] [employer] Work Phone: [facility] [place] 01-04-2021 14:50-0400 Systolic blood pressure 132 mm[Hg] [place] [employer] Work Phone: [facility] [place] 12-17-2020 12:11-0400 Body height 170.2 cm Lenin Ramirez MD Work Phone: [facility] [place] 12-17-2020 12:11-0400 Body mass index (BMI) [Ratio] 30.23 kg/m2 Lenin Ramirez MD Work Phone: [facility] [place] 12-17-2020 12:11-0400 Body weight 87.54 kg Lenin Ramirez MD Work Phone: [facility] [place] 12-17-2020 12:11-0400 Diastolic blood pressure 77 mm[Hg] Lenin Ramirez MD Work Phone: [facility] [place] 12-17-2020 12:11-0400 Heart rate 63 /min Lenin Ramirez MD Work Phone: [facility] [place] 12-17-2020 12:11-0400 SaO2% (BldA) [Mass fraction] 90 % Lenin Ramirez MD Work Phone: [facility] [place] 12-17-2020 12:11-0400 Systolic blood pressure 129 mm[Hg] Lenin Ramirez MD Work Phone: [facility] [place] 11-23-2020 12:52-0400 Body height 170.2 cm [place] CNP Work Phone: [facility] [place] 11-23-2020 12:52-0400 Body mass index (BMI) [Ratio] 29.44 kg/m2 [place] CNP Work Phone: [facility] [place] 11-23-2020 12:52-0400 Body weight 85.28 kg [place] CNP Work Phone: [facility] [place] 11-23-2020 12:52-0400 Diastolic blood pressure 76 mm[Hg] [place] CNP Work Phone: [facility] [place] 11-23-2020 12:52-0400 Heart rate 63 /min [place] [employer] Work Phone: [facility] [place] 11-23-2020 12:52-0400 SaO2% (BldA) [Mass fraction] 90 % [place] [employer] Work Phone: [facility] [place] 11-23-2020 12:52-0400 Systolic blood pressure 131 mm[Hg] [place] [employer] Work Phone: [facility] [place] 10-26-2020 07:55-0400 Body height 170.2 cm [place] CNP Work Phone: [facility] [place] 10-26-2020 07:55-0400 Body mass index (BMI) [Ratio] 29.29 kg/m2 [place] CNP Work Phone: [facility] [place] 10-26-2020 07:55-0400 Body weight 84.82 kg [place] CNP Work Phone: [facility] [place] 10-26-2020 07:55-0400 Diastolic blood pressure 77 mm[Hg] [place] CNP Work Phone: [facility] [place] 10-26-2020 07:55-0400 Heart rate 66 /min [place] CNP Work Phone: [facility] [place] 10-26-2020 07:55-0400 SaO2% (BldA) [Mass fraction] 84 % [place] CNP Work Phone: [facility] [place] 10-26-2020 07:55-0400 Systolic blood pressure 143 mm[Hg] [place] CNP Work Phone: [facility] [place] 10-21-2020 08:11-0400 Diastolic blood pressure 89 mm[Hg] Mil Dee MD Work Phone: [facility] [place] 10-21-2020 08:11-0400 Systolic blood pressure 164 mm[Hg] Mil Dee MD Work Phone: [facility] [place] 10-21-2020 08:07-0400 Body height 170.2 cm Mil Dee MD Work Phone: [facility] [place] 10-21-2020 08:07-0400 Body temperature 98.2 [degF] Mil Dee MD Work Phone: [facility] [place] 10-21-2020 08:07-0400 Heart rate 74 /min Mil Dee MD Work Phone: [facility] [place] 10-06-2020 08:15-0400 Body height 163.83 cm [facility] 10-06-2020 08:15-0400 Body mass index (BMI) [Ratio] 31.26 kg/m2 Muna Townsend [facility], [facility].; [facility]. 10-06-2020 08:15-0400 Body surface area Derived from formula 1.9 m2 [facility], [facility].; [facility]. 10-06-2020 08:15-0400 Body weight 83.92 kg Muna Townsend [facility], [facility].; [facility]. 10-06-2020 08:15-0400 Diastolic blood pressure 73 mm[Hg] [facility], [facility].; [facility], [facility]. 10-06-2020 08:15-0400 Heart rate 75 /min [facility], [facility].; [facility]. 10-06-2020 08:15-0400 Inhaled oxygen concentration 20 % [facility]. 10-06-2020 08:15-0400 SaO2% (BldA) [Mass fraction] 97 % [facility], [facility].; [employer] [facility], [facility]. 10-06-2020 08:15-0400 Systolic blood pressure 152 mm[Hg] [facility], [facility].; [employer] [facility]. 09-30-2020 08:21-0400 Body mass index (BMI) [Ratio] 28.35 kg/m2 Leonila Walls RN [facility] [place] 09-30-2020 [id number] Body weight 82.1 kg Leonila Walls RN [facility] [place] 09-30-2020 08:21-0400 Diastolic blood pressure 73 mm[Hg] Leonila Walls RN [facility] [place] 09-30-2020 08:21-0400 Heart rate 55 /min Leonila Walls RN [facility] [place] 09-30-2020 08:21-0400 Respiratory rate 16 /min Leonila Walls RN [facility] [place] 09-30-2020 [id number] SaO2% (BldA) [Mass fraction] 98 % Leonila Walls RN [facility] [place] 09-30-2020 [id number] Systolic blood pressure 129 mm[Hg] Leonila Walls RN [facility] [place] 08-11-2020 08:26-0400 Body height 163.[address] [facility], [facility].; [facility]. 08-11-2020 [id number] Body mass index (BMI) [Ratio] 33.29 kg/m2 [facility], [facility].; [facility]. 08-11-2020 08:0400 Body surface area Derived from formula 1.95 m2 [facility], [facility].; [facility], [facility]. 08-11-2020 08:0400 Body weight 89.36 kg [facility], [facility].; [facility], [facility]. 08-11-2020 [id number] Diastolic blood pressure 64 mm[Hg] [facility], [facility].; [facility], [facility]. 08-11-2020 08:0400 Heart rate 71 /min [facility], [facility].; [facility], [facility]. 08-11-2020 08:26-0400 Systolic blood pressure 138 mm[Hg] [facility], [facility].; [employer] [facility], [facility]. 08-03-2020 [id number] Body mass index (BMI) [Ratio] 30.85 kg/m2 Leonila Walls RN [facility] [place] 08-03-2020 13:0400 Body weight 89.36 kg Leonila Walls RN [facility] [place] 08-03-2020 13:0400 Diastolic blood pressure 76 mm[Hg] Leonila Walls RN [facility] [place] 08-03-2020 [id number] Heart rate 68 /min Leonila Walls RN [facility] [place] 08-03-2020 13:0400 Respiratory rate 16 /min Leonila [facility] 08-03-2020 13:21-0400 SaO2% (BldA) [Mass fraction] 93 % Leonila [facility] 08-03-2020 13:21-0400 Systolic blood pressure 139 mm[Hg] Leonilaeloy Walls [facility] 06-19-2020 10:40-0400 BMI (Body Mass Index) 31.92 kg/m2 [facility] 06-19-2020 10:40-0400 Body weight 92.44 kg [facility] 06-19-2020 10:40-0400 BP Diastolic 79 mm[Hg] [facility] 06-19-2020 10:40-0400 BP Systolic 147 mm[Hg] [facility] 06-19-2020 10:40-0400 Pulse (Heart Rate) 62 /min [facility] 06-19-2020 10:40-0400 Pulse Oximetry 94 % [facility] 06-19-2020 10:40-0400 Respiratory Rate 16 /min [facility] 04-20-2020 10:18-0500 BMI (Body Mass Index) 32.11 kg/m2 [facility] 04-20-2020 10:18-0500 Body weight 92.99 kg [facility] 04-20-2020 10:18-0500 BP Diastolic 76 mm[Hg] [facility] 04-20-2020 10:18-0500 BP Systolic 129 mm[Hg] [facility] 04-20-2020 10:18-0500 Pulse (Heart Rate) 66 /min [facility] 04-20-2020 10:18-0500 Pulse Oximetry 96 % [facility] 04-20-2020 10:18-0500 Respiratory Rate 16 /min [facility] 04-07-2020 09:08-0500 Body height 163.83 cm Muna Townsend LPN [facility], [facility]. 04-07-2020 09:08-0500 Body mass index (BMI) [Ratio] 34.98 kg/m2 [facility], [facility].; [facility], [facility]. 04-07-2020 09:08-0500 Body surface area Derived from formula 2 m2 Muna Townsend [facility], [facility].; [facility], [facility]. 04-07-2020 09:08-0500 Body weight 93.9 kg Muna Townsend [facility], [facility].; [facility], [facility]. 04-07-2020 09:08-0500 Diastolic blood pressure 76 mm[Hg] Muna Townsend [facility], [facility].; [facility], [facility]. 04-07-2020 09:08-0500 Heart rate 91 /min Muna Townsend [facility], [facility].; [facility], [facility]. 04-07-2020 09:08-0500 Systolic blood pressure 137 mm[Hg] Muna Townsend [facility], [facility].; [facility], [facility]. 03-26-2020 10:27-0500 BP Diastolic 64 mm[Hg] [facility] 03-26-2020 10:27-0500 BP Systolic 130 mm[Hg] Lenin Ramirez [facility] [place] 03-26-2020 10:27-0500 Pulse (Heart Rate) 62 /min Lenin Ramirez [facility] [place] 02-17-2020 10:14-0500 BMI (Body Mass Index) 31.84 kg/m2 [facility] 02-17-2020 10:14-0500 Body weight 92.22 kg [facility] 02-17-2020 10:14-0500 BP Diastolic 74 mm[Hg] [facility] 02-17-2020 10:14-0500 BP Systolic 140 mm[Hg] [facility] 02-17-2020 10:14-0500 Pulse (Heart Rate) 62 /min [facility] 02-17-2020 10:14-0500 Pulse Oximetry 97 % [facility] 02-17-2020 10:14-0500 Respiratory Rate 16 /min [facility] 12-23-2019 10:12-0400 BMI (Body Mass Index) 32.7 kg/m2 [facility] 12-23-2019 10:12-0400 Body weight 94.71 kg [facility] 12-23-2019 10:12-0400 BP Diastolic 73 mm[Hg] [facility] 12-23-2019 10:12-0400 BP Systolic 136 mm[Hg] [facility] 12-23-2019 10:12-0400 Pulse (Heart Rate) 62 /min [facility] 12-23-2019 10:120400 Pulse Oximetry 95 % [facility] 12-23-2019 10:120400 Respiratory Rate 16 /min [facility] 11-27-2019 11:10-0400 Body height 163.83 cm Muna Townsend [employer] [facility], [facility].; [employer] [facility], [employer] 11-27-2019 11:10-0400 Body mass index (BMI) [Ratio] 36.5 kg/m2 [facility] [employer] [facility], [employer]. 11-27-2019 11:10-0400 Body surface area Derived from formula 2.[address], [facility].; [employer] [facility], [employer]. 11-27-2019 11:10-0400 Body weight 97.98 kg [facility] [employer] [facility], [employer]. 11-27-2019 11:10-0400 Diastolic blood pressure 82 mm[Hg] Adeline Stuckey [facility] [employer] [facility], [employer]. 11-27-2019 11:10-0400 Heart rate 69 /min [facility], [facility].; [employer] [facility], [employer]. 11-27-2019 11:10-0400 Inhaled oxygen concentration 20 % [facility], [facility].; [employer] 11-27-2019 11:10-0400 SaO2% (BldA) [Mass fraction] 93 % [facility] [facility]. 11-27-2019 11:10-0400 Systolic blood pressure 160 mm[Hg] Muna Townsend ASHER [facility], [facility].; [facility] 11-04-2019 10:07-0400 BMI (Body Mass Index) 34.3 kg/m2 [facility] 11-04-2019 10:07-0400 Body weight 99.34 kg [facility] 11-04-2019 10:07-0400 BP Diastolic 83 mm[Hg] [facility] 11-04-2019 10:07-0400 BP Systolic 150 mm[Hg] [facility] 11-04-2019 10:07-0400 Pulse (Heart Rate) 68 /min [facility] 11-04-2019 10:07-0400 Pulse Oximetry 95 % [facility] 11-04-2019 10:07-0400 Respiratory Rate 16 /min [facility] 09-20-2019 08:49-0400 Body height 163.83 cm Umu Nye RN [facility], [facility].; [employer] [facility]. 09-20-2019 08:49-0400 Body mass index (BMI) [Ratio] 38.19 kg/m2 Umu Nye RN [facility], [facility].; [facility], [facility]. 09-20-2019 08:49-0400 Body surface area Derived from formula 2.07 m2 Umu Nye RN [facility], [facility].; [facility]. 09-20-2019 08:49-0400 Body weight 102.51 kg Umu Nye RN [facility], [facility].; [employer] [facility], [facility]. 09-20-2019 08:49-0400 Diastolic blood pressure 72 mm[Hg] Umu Nye RN [facility], [facility].; [facility], [facility]. 09-20-2019 08:49-0400 Heart rate 69 /min Umu Nye RN [facility], [facility].; [employer] [facility], [facility]. 09-20-2019 08:49-0400 Systolic blood pressure 129 mm[Hg] Umu Nye RN [facility], [facility].; [facility] 09-09-2019 10:12-0400 BMI (Body Mass Index) 33.99 kg/m2 [facility] 09-09-2019 10:12-0400 Body weight 98.43 kg [facility] 09-09-2019 10:12-0400 BP Diastolic 84 mm[Hg] [facility] 09-09-2019 10:12-0400 BP Systolic 152 mm[Hg] [facility] 09-09-2019 10:12-0400 Pulse (Heart Rate) 72 /min [facility] 09-09-2019 10:12-0400 Pulse Oximetry 96 % [facility] 09-09-2019 10:12-0400 Respiratory Rate 16 /min [facility] 07-31-2019 09:20-0400 BMI (Body Mass Index) 34.44 kg/m2 [facility] 07-31-2019 09:20-0400 Body weight 99.75 kg [facility] 07-31-2019 09:20-0400 BP Diastolic 88 mm[Hg] [facility] 07-31-2019 09:20-0400 BP Systolic 169 mm[Hg] [facility] 07-31-2019 09:20-0400 Pulse (Heart Rate) 72 /min [facility] 07-31-2019 09:20-0400 Pulse Oximetry 94 % [facility] 07-31-2019 09:20-0400 Respiratory Rate 16 /min [facility] 06-06-2019 13:03-0400 Body height 163.83 cm Rosy Tavarez LPN [facility], [facility]. 06-06-2019 13:03-0400 Body mass index (BMI) [Ratio] 36.67 kg/m2 Rosy Tavarez LPN [facility], [facility]. 06-06-2019 13:03-0400 Body surface area Derived from formula 2.04 m2 Rosy Tavarez LPN [facility], [facility]. 06-06-2019 13:03-0400 Body temperature 98 [degF] [facility]y [facility]ach [facility].; [employer] [facility]. 06-06-2019 13:03-0400 Body weight 98.43 kg Rosy Balllabach [facility].; [employer] [facility]. 06-06-2019 13:03-0400 Diastolic blood pressure 77 mm[Hg] Rosy Allison Corby [facility].; [employer] [facility]. 06-06-2019 13:03-0400 Heart rate 81 /min Rosy Balllabach [facility].; [facility] [employer] [facility]. 06-06-2019 13:03-0400 Inhaled oxygen concentration 20 % Rosy Allison Corby [facility].; [employer] [facility] 06-06-2019 13:03-0400 SaO2% (BldA) [Mass fraction] 97 % Rosy Allison Corby [facility] [employer] [facility].; [facility] 06-06-2019 13:03-0400 Systolic blood pressure 168 mm[Hg] [facility].; [employer] [facility]. 05-24-2019 10:08-0400 BMI (Body Mass Index) 34.24 kg/m2 [facility] 05-24-2019 10:08-0400 Body weight 99.16 kg [facility] 05-24-2019 10:08-0400 BP Diastolic 87 mm[Hg] [facility] 05-24-2019 10:08-0400 BP Systolic 139 mm[Hg] [facility] 05-24-2019 10:08-0400 Pulse (Heart Rate) 70 /min [facility] 05-24-2019 10:08-0400 Pulse Oximetry 93 % [facility] 05-24-2019 10:08-0400 Respiratory Rate 16 /min [facility] 03-27-2019 08:27-0500 Body height 163.83 cm Zack Olmos MD Work Phone: [facility] [employer]. 03-27-2019 08:27-0500 Body mass index (BMI) [Ratio] 38.19 kg/m2 Zack Olmos MD Work Phone: [facility] [employer]. 03-27-2019 08:27-0500 Body surface area Derived from formula 2.07 m2 Zack Olmos MD Work Phone: [facility] [employer]. 03-27-2019 08:27-0500 Body weight 102.51 kg Zack Olmos MD Work Phone: [facility] [employer]. 03-27-2019 08:27-0500 Diastolic blood pressure 84 mm[Hg] Zack Olmos MD Work Phone: [employer]. 03-27-2019 08:27-0500 Heart rate 66 /min Zack Olmos MD Work Phone: [employer].; [employer]. 03-27-2019 08:27-0500 Systolic blood pressure 157 mm[Hg] Zack Olmos MD Work Phone: [facility] [employer]. 03-25-2019 10:21-0500 BP Diastolic 88 mm[Hg] [facility] 03-25-2019 10:21-0500 BP Systolic 178 mm[Hg] [facility] 03-25-2019 10:16-0500 Pulse (Heart Rate) 66 /min [facility] 03-25-2019 10:16-0500 Pulse Oximetry 94 % [facility] 03-25-2019 10:16-0500 Respiratory Rate 16 /min [facility] 02-28-2019 13:45-0500 BMI (Body Mass Index) 35.63 kg/m2 Lenin Fraserleatha [facility] 02-28-2019 13:45-0500 Body weight 103.19 kg Lenin James [facility] 02-28-2019 13:45-0500 BP Diastolic 82 mm[Hg] Lenin Ramirez [facility] 02-28-2019 13:45-0500 BP Systolic 153 mm[Hg] Lenin Ramirez [facility] 02-28-2019 13:45-0500 Height 170.2 cm Lenin Ramirez [facility] 02-28-2019 13:45-0500 Pulse (Heart Rate) 67 /min Lenin Ramirez [facility] 02-28-2019 13:45-0500 Pulse Oximetry 95 % Lenin Raimrez [facility] 01-28-2019 11:13-0500 BMI (Body Mass Index) 34.97 kg/m2 [facility] 01-28-2019 11:13-0500 Body weight 101.29 kg [facility] 01-28-2019 11:13-0500 BP Diastolic 85 mm[Hg] [facility] 01-28-2019 11:13-0500 BP Systolic 166 mm[Hg] [facility] 01-28-2019 11:13-0500 Pulse (Heart Rate) 62 /min [facility] 01-28-2019 11:13-0500 Pulse Oximetry 95 % [facility] 01-28-2019 11:13-0500 Respiratory Rate 16 /min [facility] 12-31-2018 10:05-0400 BMI (Body Mass Index) 34.54 kg/m2 [facility] 12-31-2018 10:05-0400 Body weight 100.02 kg [facility] 12-31-2018 10:05-0400 BP Diastolic 62 mm[Hg] [facility] 12-31-2018 10:05-0400 BP Systolic 150 mm[Hg] [facility] 12-31-2018 10:05-0400 Pulse (Heart Rate) 66 /min [facility] 12-31-2018 10:05-0400 Pulse Oximetry 94 % [facility] 12-31-2018 10:05-0400 Respiratory Rate 16 /min [facility] 11-30-2018 10:31-0400 BMI (Body Mass Index) 34.5 kg/m2 [facility] 11-30-2018 10:31-0400 Body weight 99.93 kg [facility] 11-30-2018 10:31-0400 BP Diastolic 88 mm[Hg] [facility] 11-30-2018 10:31-0400 BP Systolic 168 mm[Hg] [facility] 11-30-2018 10:31-0400 Pulse (Heart Rate) 62 /min [facility] 11-30-2018 10:31-0400 Pulse Oximetry 95 % [facility] 11-30-2018 10:31-0400 Respiratory Rate 16 /min [facility] 11-09-2018 10:09-0400 BMI (Body Mass Index) 34.43 kg/m2 [facility] 11-09-2018 10:09-0400 Body weight 99.7 kg [facility] 11-09-2018 10:09-0400 BP Diastolic 92 mm[Hg] [facility] 11-09-2018 10:09-0400 BP Systolic 155 mm[Hg] [facility] 11-09-2018 10:09-0400 Pulse (Heart Rate) 70 /min [facility] 10-12-2018 10:14-0400 BMI (Body Mass Index) 34.28 kg/m2 [facility] 10-12-2018 10:14-0400 Body weight 99.29 kg [facility] 10-12-2018 10:14-0400 BP Diastolic 92 mm[Hg] [facility] 10-12-2018 10:14-0400 BP Systolic 153 mm[Hg] [facility] 10-12-2018 10:14-0400 Pulse (Heart Rate) 70 /min [facility] 10-12-2018 10:14-0400 Pulse Oximetry 93 % [facility] 10-12-2018 10:14-0400 Respiratory Rate 16 /min [facility] 09-25-2018 09:23-0400 Body height 163.83 cm Zack Olmos MD Work Phone: [facility].; [facility], [facility]. 09-25-2018 09:23-0400 Body mass index (BMI) [Ratio] 36.84 kg/m2 Zack Olmos MD Work Phone: [employer] 09-25-2018 09:23-0400 Body surface area Derived from formula 2.04 m2 Zack Olmos MD Work Phone: [employer].; [employer] 09-25-2018 09:23-0400 Body weight 98.88 kg Zack Olmos MD Work Phone: [employer] 09-25-2018 09:23-0400 Diastolic blood pressure 80 mm[Hg] Zack Olmos MD Work Phone: [employer] 09-25-2018 09:23-0400 Heart rate 76 /min Zack Olmos MD Work Phone: [employer] 09-25-2018 09:23-0400 Systolic blood pressure 132 mm[Hg] Zack Olmos MD Work Phone: [employer]. 09-21-2018 11:05-0400 BMI (Body Mass Index) 34.13 kg/m2 [facility] 09-21-2018 11:05-0400 Body weight 98.84 kg [facility] 09-21-2018 11:05-0400 BP Diastolic 77 mm[Hg] [facility] 09-21-2018 11:05-0400 BP Systolic 146 mm[Hg] [facility] 09-21-2018 11:05-0400 Pulse (Heart Rate) 66 /min [facility] 09-21-2018 11:05-0400 Pulse Oximetry 95 % [facility] 09-21-2018 11:05-0400 Respiratory Rate 16 /min [facility] 09-05-2018 11:20-0400 BP Diastolic 72 mm[Hg] [place] [facility] 09-05-2018 11:20-0400 BP Systolic 142 mm[Hg] [place] [facility] 09-05-2018 11:20-0400 Pulse (Heart Rate) 54 /min [place] [facility] 09-05-2018 10:55-0400 BMI (Body Mass Index) 33.39 kg/m2 [place] [facility] 09-05-2018 10:55-0400 Body weight 96.71 kg [place] [facility] 09-05-2018 10:55-0400 Height 170.2 cm [facility] 09-05-2018 10:55-0400 Pulse Oximetry 96 % [place] [facility] 08-31-2018 11:05-0400 BMI (Body Mass Index) 33.17 kg/m2 [facility] 08-31-2018 11:05-0400 BP Diastolic 88 mm[Hg] [facility] 08-31-2018 11:05-0400 BP Systolic 155 mm[Hg] [facility] 08-31-2018 11:05-0400 Pulse (Heart Rate) 50 /min [facility] 08-31-2018 11:05-0400 Pulse Oximetry 95 % [facility] 08-31-2018 11:05-0400 Respiratory Rate 16 /min [facility] 08-31-2018 11:05-0400 Weight 96.07 kg [facility] 08-10-2018 11:19-0400 BMI (Body Mass Index) 34 kg/m2 [facility] 08-10-2018 11:19-0400 BP Diastolic 78 mm[Hg] [facility] 08-10-2018 11:19-0400 BP Systolic 148 mm[Hg] [facility] 08-10-2018 11:19-0400 Pulse (Heart Rate) 72 /min [facility] 08-10-2018 11:19-0400 Pulse Oximetry 95 % [facility] 08-10-2018 11:19-0400 Respiratory Rate 16 /min [facility] 08-10-2018 11:19-0400 Weight 98.48 kg [facility] 08-03-2018 12:17-0400 BMI (Body Mass Index) 34.08 kg/m2 [facility] 08-03-2018 12:17-0400 BP Diastolic 84 mm[Hg] [facility] 08-03-2018 12:17-0400 BP Systolic 141 mm[Hg] [facility] 08-03-2018 12:17-0400 Pulse (Heart Rate) 66 /min [facility] 08-03-2018 12:17-0400 Pulse Oximetry 96 % [facility] 08-03-2018 12:17-0400 Respiratory Rate 16 /min [facility] 08-03-2018 12:17-0400 Weight 98.7 kg [facility] 07-26-2018 08:40-0400 BP Diastolic 72 mm[Hg] [place] [facility] 07-26-2018 08:40-0400 BP Systolic 163 mm[Hg] [facility] 07-26-2018 08:40-0400 Pulse (Heart Rate) 76 /min [facility] 07-26-2018 08:03-0400 BMI (Body Mass Index) 34.57 kg/m2 [facility] 07-26-2018 08:03-0400 Height 170.2 cm [facility] 07-26-2018 08:03-0400 Pulse Oximetry 94 % [facility] 07-26-2018 08:03-0400 Weight 100.11 kg [place] [facility] 07-20-2018 09:41-0400 BP Diastolic 84 mm[Hg] Lenin Ramirez [facility] 07-20-2018 09:41-0400 BP Systolic 144 mm[Hg] Lenin Ramirez [facility] 07-20-2018 09:41-0400 Pulse (Heart Rate) 92 /min Lenin Ramirez [facility] 05-30-2018 10:01-0400 Body height 163.83 cm Muna Townsend HEEL STIFFENER [facility] 05-30-2018 10:01-0400 Body mass index (BMI) [Ratio] 37.35 kg/m2 Muna Townsend HEEL STIFFENER [facility] 05-30-2018 10:01-0400 Body surface area Derived from formula 2.05 m2 Muna Townsend LPN [facility] [employer]. 05-30-2018 10:01-0400 Body weight 100.25 kg Muna Townsend HEEL STIFFENER [employer] [facility] [employer], [employer] 05-30-2018 10:01-0400 Diastolic blood pressure 65 mm[Hg] Muna Townsend HEEL STIFFENER [employer] [facility] [employer] 05-30-2018 10:01-0400 Heart rate 38 /min Mnua Townsend HEEL STIFFENER [facility] [employer]. 05-30-2018 10:01-0400 Inhaled oxygen concentration 20 % Muna Townsend [facility] [employer] [facility] [employer], [employer]. 05-30-2018 10:01-0400 SaO2% (BldA) [Mass fraction] 97 % [facility]una [facility]send [facility] [employer], [employer]. 05-30-2018 10:01-0400 Systolic blood pressure 132 mm[Hg] [facility]una Townsend [facility] [employer], [employer]. 05-17-2018 12:01-0500 BMI (Body Mass Index) 34.63 kg/m2 Lenin Ramirez [facility] 05-17-2018 12:01-0500 BP Diastolic 59 mm[Hg] Lenin Fraserleatha [facility] 05-17-2018 12:01-0500 BP Systolic 122 mm[Hg] Lenin Evelioleatha [facility] 05-17-2018 12:01-0500 Height 170.2 cm Lenin Davleatha [facility] 05-17-2018 12:01-0500 Pulse (Heart Rate) 39 /min Lenin Evelioleatha [facility] 05-17-2018 12:01-0500 Pulse Oximetry 92 % Lenin Davleatha [facility] 05-17-2018 12:01-0500 Weight 100.29 kg Lenin Davleatha [facility] 05-03-2018 12:15-0500 BMI (Body Mass Index) 36.77 kg/m2 Lenin Fraserleatha [facility] 05-03-2018 12:15-0500 BP Diastolic 85 mm[Hg] Lenin Ramirez [facility] 05-03-2018 12:15-0500 BP Systolic 147 mm[Hg] Lenin Ramirez [facility] 05-03-2018 12:15-0500 Height 170.2 cm Lenin Ramirez [facility] 05-03-2018 12:15-0500 Pulse (Heart Rate) 80 /min Lenin Ramirez [facility] 05-03-2018 12:15-0500 Pulse Oximetry 91 % Lenin Ramirez [facility] 05-03-2018 12:15-0500 Weight 106.5 kg Lenin Ramirez [facility] 04-18-2018 09:15-0500 Body height 163.83 cm Rachel Guera Goodwin LPN [facility], [facility].; [employer], [employer]. 04-18-2018 09:15-0500 Body mass index (BMI) [Ratio] 39.88 kg/m2 Rachel Guera Goodwin HEEL STIFFENER [employer] [facility] [employer], [facility]. 04-18-2018 09:15-0500 Body surface area Derived from formula 2.11 m2 Rachel Guera Goodwin HEEL STIFFENER [employer] [facility], [facility].; [employer], [employer]. 04-18-2018 09:15-0500 Body weight 107.05 kg Rachel Guera Goodwin [facility] [employer] [facility], [facility].; [employer], [employer]. 04-18-2018 09:15-0500 Diastolic blood pressure 73 mm[Hg] Rachel Goodwin HEEL STIFFENER [employer] [facility].; [employer] [facility], [facility]. 04-18-2018 09:15-0500 Heart rate 70 /min Rachel Guera Goodwin LPN [facility] [facility], [facility].; [employer], [employer]. 04-18-2018 09:15-0500 Inhaled oxygen concentration 20 % Rachel Guera Osmanbarichard [facility] [employer] [facility], [facility].; [employer], [employer]. 04-18-2018 09:15-0500 SaO2% (BldA) [Mass fraction] 93 % Rachel Guera Samersjosephine HEEL STIFFENER [employer] [facility]. 04-18-2018 09:15-0500 Systolic blood pressure 150 mm[Hg] Rachel Goodwin LPN [facility].; [employer]. 03-16-2018 10:31-0500 Body height 163.83 cm Umu Nye RN [facility].; [employer]. 03-16-2018 10:31-0500 Body mass index (BMI) [Ratio] 39.21 kg/m2 Umu Nye RN [facility].; [employer]. 03-16-2018 10:31-0500 Body surface area Derived from formula 2.1 m2 Umu Nye RN [facility].; [employer]. 03-16-2018 10:31-0500 Body temperature 98.6 [degF] Umu Nye RN [facility].; [employer]. 03-16-2018 10:31-0500 Body weight 105.24 kg Umu Nye RN [facility] [employer]. 03-16-2018 10:31-0500 Diastolic blood pressure 71 mm[Hg] Umu Nye RN [facility] [employer]. 03-16-2018 10:31-0500 Heart rate 76 /min Umu Nye RN [facility] [employer]. 03-16-2018 10:31-0500 Inhaled oxygen concentration 20 % Umu Nye RN [facility] [employer]. 03-16-2018 10:31-0500 SaO2% (BldA) [Mass fraction] 94 % Umu Nye RN [facility].; [employer]. 03-16-2018 10:31-0500 Systolic blood pressure 126 mm[Hg] Umu Nye RN [facility].; [employer]. 02-21-2018 08:02-0500 Body height 163.83 cm Sandra King LPN [facility].; [employer]. 02-21-2018 08:02-0500 Body mass index (BMI) [Ratio] 39.04 kg/m2 Sandra Wealonso STER[employer]ING [employer] [facility]. 02-21-2018 08:02-0500 Body surface area Derived from formula 2.09 m2 Sandra Avialonso STER[employer]ING [employer] [employer] [facility]. 02-21-2018 08:02-0500 Body temperature 97.9 [degF] Sanrda Fernando HEEL STIFFENER [employer] [facility].; [employer]. 02-21-2018 08:02-0500 Body weight 104.78 kg Sandra Wealonso HEEL STIFFENER [employer], [employer] [facility]. 02-21-2018 08:02-0500 Diastolic blood pressure 81 mm[Hg] Sandra [facility]. 02-21-2018 08:02-0500 Heart rate 71 /min Sandra Avialonso HEEL STIFFENER [employer]. 02-21-2018 08:02-0500 Inhaled oxygen concentration 20 % Sandra [facility] [employer], [employer]. 02-21-2018 08:02-0500 SaO2% (BldA) [Mass fraction] 98 % Sandra Avialonso HEEL STIFFENER [employer] [facility]. 02-21-2018 08:02-0500 Systolic blood pressure 160 mm[Hg] Sandra King LPN [employer] 02-06-2018 08:00-0500 Body height 163.83 cm Rachel Goodwin HEEL STIFFENER [employer] 02-06-2018 08:00-0500 Body mass index (BMI) [Ratio] 38.19 kg/m2 Rachel Goodwin HEEL STIFFENER [employer] [employer]. 02-06-2018 08:00-0500 Body surface area Derived from formula 2.07 m2 Rachel Goodwin [facility], [facility].; [employer], [facility]. 02-06-2018 08:00-0500 Body temperature 99.5 [degF] Rachel Goodwin [facility] [employer], [employer]. 02-06-2018 08:00-0500 Body weight 102.51 kg Rachel Goodwin [facility] [employer] [facility], [facility].; [employer], [facility]. 02-06-2018 08:00-0500 Diastolic blood pressure 82 mm[Hg] Rachel Goodwin [facility] [employer] [facility] [employer], [employer]. 02-06-2018 08:00-0500 Heart rate 85 /min Rachel Goodwin [facility] [employer] [facility] [employer], [employer]. 02-06-2018 08:00-0500 Inhaled oxygen concentration 20 % Rachelnaahy Goodwin [facility] [employer] [facility], [facility].; [employer], [employer]. 02-06-2018 08:00-0500 SaO2% (BldA) [Mass fraction] 95 % Rachelanahy Goodwin [facility] [employer] [facility], [facility].; [employer], [employer]. 02-06-2018 08:00-0500 Systolic blood pressure 146 mm[Hg] Rachel Goodwin [facility] [employer] [facility] [employer], [employer]. 12-26-2017 08:42-0400 Body height 163.83 cm Muna Townsend [facility] [employer] [facility], [facility].; [employer], [employer]. 12-26-2017 08:42-0400 Body mass index (BMI) [Ratio] 39.38 kg/m2 Muna Townsend [facility] [employer] [facility], [employer].; [employer], [employer]. 12-26-2017 08:42-0400 Body surface area Derived from formula 2.1 m2 Muna Townsend [facility] [employer] [facility], [facility].; [facility]. 12-26-2017 08:42-0400 Body temperature 97.5 [degF] Muna Townsend HEEL STIFFENER [facility] [employer] [facility] 12-26-2017 08:42-0400 Body weight 105.69 kg Muna Townsend ASHER [facility] [employer] [facility] [facility]26-2017 08:42-0400 Diastolic blood pressure 80 mm[Hg] Muna Townsend [facility] [employer] 12-26-2017 08:42-0400 Heart rate 83 /min AdelineMaren Townsend [facility]ER [facility] [employer] [employer] 12-26-2017 08:42-0400 Inhaled oxygen concentration 20 % AdelineMaren Townsend A[facility]ER [facility], [facility] [employer] [facility] 12-26-2017 08:42-0400 SaO2% (BldA) [Mass fraction] 96 % AdelineMaren Townsend ASHER [facility].; [employer] 12-26-2017 08:42-0400 Systolic blood pressure 145 mm[Hg] Muna Townsend ASHER [facility] [employer] 11-07-2017 09:17-0400 Body height 163.83 cm Muna Townsend A[facility] [employer] 11-07-2017 09:17-0400 Body mass index (BMI) [Ratio] 38.7 kg/m2 Adeline [place] A[facility], [facility].; [employer] 11-07-2017 09:17-0400 Body surface area Derived from formula 2.08 m2 Adeline [place] ASHER [employer] [facility], [facility].; [employer] 11-07-2017 09:17-0400 Body weight 103.87 kg Adeline [place] A[facility] [employer] 11-07-2017 09:17-0400 Diastolic blood pressure 73 mm[Hg] AdelineMaren Barrettey ASHER [employer] [facility], [facility].; [employer] 11-07-2017 09:17-0400 Heart rate 82 /min Muna Townsend ASHER [employer] [employer] 11-07-2017 09:17-0400 Systolic blood pressure 144 mm[Hg] Muna Townsend HEEL ST[employer]ENER [employer] [employer] 10-09-2017 08:22-0400 Body height 163.83 cm Johnny Corcoran [facility] [employer] 10-09-2017 08:22-0400 Body mass index (BMI) [Ratio] 39.21 kg/m2 Johnny Corcoran [facility] [employer] 10-09-2017 08:22-0400 Body surface area Derived from formula 2.1 m2 Johnny Corcoran [facility] [employer] 10-09-2017 08:22-0400 Body weight 105.24 kg Johnny Corcoran [facility] [employer] [employer] 10-09-2017 08:22-0400 Diastolic blood pressure 91 mm[Hg] Johnny Corcoran [employer] [employer] 10-09-2017 08:22-0400 Heart rate 70 /min Johnny Corcoran [facility] [employer] 10-09-2017 08:22-0400 Systolic blood pressure 151 mm[Hg] Johnny Corcoran LPN [employer] [employer] 09-18-2017 09:50-0400 Body height 163.83 cm Zack Olmos MD Work Phone: [employer] [employer] 09-18-2017 09:50-0400 Body mass index (BMI) [Ratio] 38.7 kg/m2 Zack Olmos MD Work Phone: [employer] [employer] 09-18-2017 09:50-0400 Body surface area Derived from formula 2.08 m2 Zack Olmos MD Work Phone: [employer] 09-18-2017 09:50-0400 Body weight 103.87 kg Zack Olmos MD Work Phone: [employer] 09-18-2017 09:50-0400 Diastolic blood pressure 70 mm[Hg] Zack Olmos MD Work Phone: [employer] 09-18-2017 09:50-0400 Heart rate 67 /min Zack Olmos MD Work Phone: [employer] 09-18-2017 09:50-0400 Systolic blood pressure 126 mm[Hg] Zack Olmos MD Work Phone: [employer] 07-11-2017 09:27-0400 Body height 163.83 cm Laura Boswell LPN [employer] [employer] 07-11-2017 09:27-0400 Body mass index (BMI) [Ratio] 39.04 kg/m2 Laura Boswell LPN [employer] [employer] 07-11-2017 09:27-0400 Body surface area Derived from formula 2.09 m2 Laura Boswell LPN [employer] 07-11-2017 09:27-0400 Body temperature 97.9 [degF] Laura Boswell LPN [employer] [employer] 07-11-2017 09:27-0400 Body weight 104.78 kg Laura Boswell LPN [employer] 07-11-2017 09:27-0400 Diastolic blood pressure 72 mm[Hg] Laura Boswell LPN [employer] [employer] 07-11-2017 09:27-0400 Heart rate 74 /min Laura Boswell LPN [employer] [employer] [employer] 07-11-2017 09:27-0400 Systolic blood pressure 154 mm[Hg] Laura Boswell LPN [employer] 06-16-2017 10:15-0400 Body temperature 97.9 [degF] Laura Ilda Boswell [employer] ST[employer] 06-16-2017 10:15-0400 Body weight 106.4 kg Laura Ilda Boswell LPN [employer] 06-16-2017 10:15-0400 Diastolic blood pressure 70 mm[Hg] [facility] [employer] 06-16-2017 10:15-0400 Heart rate 91 /min Laura Ilda Boswell [facility] [employer] 06-16-2017 10:15-0400 Systolic blood pressure 143 mm[Hg] [facility] [employer] 05-04-2017 15:40-0500 BMI (Body Mass Index) 38.22 kg/m2 Lenin Ramirez [facility] 05-04-2017 15:40-0500 BP Diastolic 80 mm[Hg] Lenin Ramirez [facility] 05-04-2017 15:40-0500 BP Systolic 127 mm[Hg] Lenin Ramirez [facility] 05-04-2017 15:40-0500 Height 170.2 cm Lenin Ramirez [facility] 05-04-2017 15:40-0500 Pulse (Heart Rate) 80 /min Lenin Ramirez [facility] 05-04-2017 15:40-0500 Weight 110.68 kg Lenin Ramirez [facility] 03-21-2017 10:25-0500 Body height 163.83 cm Zack Olmos MD Work Phone: [employer] 03-21-2017 10:25-0500 Body mass index (BMI) [Ratio] 39.88 kg/m2 Zack Olmos MD Work Phone: [employer] 03-21-2017 10:25-0500 Body surface area Derived from formula 2.11 m2 Zack Olmos MD Work Phone: [employer] 03-21-2017 10:25-0500 Body weight 107.05 kg Zack Olmos MD Work Phone: [employer] 03-21-2017 10:25-0500 Diastolic blood pressure 70 mm[Hg] Zack Olmos MD Work Phone: [employer] 03-21-2017 10:25-0500 Heart rate 91 /min Zack Olmos MD Work Phone: [employer] 03-21-2017 10:25-0500 Systolic blood pressure 132 mm[Hg] Zack Olmos MD Work Phone: [employer] 10-05-2016 09:46-0400 Body height 163.83 cm Zack Olmos MD Work Phone: [employer] 10-05-2016 09:46-0400 Body mass index (BMI) [Ratio] 39.88 kg/m2 Zack Olmos MD Work Phone: [employer] 10-05-2016 09:46-0400 Body surface area Derived from formula 2.11 m2 Zack Olmos MD Work Phone: [employer] 10-05-2016 09:46-0400 Body weight 107.05 kg Zack Olmos MD Work Phone: [employer] 10-05-2016 09:46-0400 Diastolic blood pressure 82 mm[Hg] Zack Olmos MD Work Phone: [employer] 10-05-2016 09:46-0400 Heart rate 68 /min Zack Olmos MD Work Phone: [employer] 10-05-2016 09:46-0400 Systolic blood pressure 138 mm[Hg] Zack Olmos MD Work Phone: [employer] 09-16-2016 11:33-0400 Body height 163.83 cm [facility] [employer] 09-16-2016 11:33-0400 Body mass index (BMI) [Ratio] 40.39 kg/m2 Rosy [facility] [employer] 09-16-2016 11:33-0400 Body surface area Derived from formula 2.12 m2 Rosy Allison Corby LPN [employer] 09-16-2016 11:33-0400 Body weight 108.41 kg Rosy Allison Corby LPN [employer] 09-16-2016 11:33-0400 Diastolic blood pressure 84 mm[Hg] Rosy Tavarez [facility] [employer] 09-16-2016 11:33-0400 Heart rate 73 /min Rosy Allison Corby [facility] [employer] 09-16-2016 11:33-0400 Systolic blood pressure 145 mm[Hg] Rosy Tavarez [facility] [employer] 04-06-2016 10:03-0500 Body height 163.83 cm Zack Olmos MD Work Phone: [employer] 04-06-2016 10:03-0500 Body mass index (BMI) [Ratio] 41.4 kg/m2 Zack Olmos MD Work Phone: [employer] 04-06-2016 10:03-0500 Body surface area Derived from formula 2.14 m2 Zack Olmos MD Work Phone: [employer] 04-06-2016 10:03-0500 Body weight 111.13 kg Zack Olmos MD Work Phone: [employer] 04-06-2016 10:03-0500 Diastolic blood pressure 72 mm[Hg] Zack Olmos MD Work Phone: [employer] 04-06-2016 10:03-0500 Heart rate 91 /min Zack Olmos MD Work Phone: [employer] 04-06-2016 10:03-0500 Systolic blood pressure 140 mm[Hg] Zack Olmos MD Work Phone: [employer] 12-21-2015 09:23-0400 Body weight 115.21 kg Zack Olmos MD Work Phone: [employer] 12-21-2015 09:23-0400 Diastolic blood pressure 80 mm[Hg] Zack Olmos MD Work Phone: [employer] 12-21-2015 09:23-0400 Heart rate 76 /min Zack Olmos MD Work Phone: [employer] 12-21-2015 09:23-0400 Systolic blood pressure 142 mm[Hg] Zack Olmos MD Work Phone: [employer] 10-14-2015 10:57-0400 Body height 163.83 cm Rosy Tavarez [facility] [employer] 10-14-2015 10:57-0400 Body mass index (BMI) [Ratio] 41.91 kg/m2 Rosy Tavarez LPN [employer] 10-14-2015 10:57-0400 Body surface area Derived from formula 2.16 m2 Rosy Tavarez LPN [employer] 10-14-2015 10:57-0400 Body weight 112.49 kg Rosy Allison Corby [employer] [facility], Inc.; [employer] 10-14-2015 10:57-0400 Diastolic blood pressure 74 mm[Hg] Rosy Balldory [employer]ING [employer] [facility], Inc.; [employer] 10-14-2015 10:57-0400 Heart rate 75 /min Rosy Allison Corby HE[employer] [facility], Inc.; [employer] 10-14-2015 10:57-0400 Systolic blood pressure 131 mm[Hg] Rosy Allison Corby LPN [employer] 10-06-2015 10:11-0400 Body height 163.83 cm Muna Engel [place] [employer]LING [employer] [facility], [facility].; [employer] 10-06-2015 10:11-0400 Body mass index (BMI) [Ratio] 41.57 kg/m2 Muna Engel [place] ASHER [employer] [facility], [facility].; [employer] 10-06-2015 10:11-0400 Body surface area Derived from formula 2.15 m2 Muna Engel [place] [employer] [facility], [facility].; [employer] 10-06-2015 10:11-0400 Body weight 111.59 kg Muna Townsend ASHER [employer] [facility], [facility].; [employer] 10-06-2015 10:11-0400 Diastolic blood pressure 75 mm[Hg] Muna Engel [place] ASHER [employer] [facility], [facility].; [employer] 10-06-2015 10:11-0400 Heart rate 71 /min Muna Engel [place] ASHER [employer] 10-06-2015 10:11-0400 Systolic blood pressure 141 mm[Hg] Muna Engel [place] ASHER [employer] 04-07-2015 10:00-0500 Body height 163.83 cm Adeline [place] [employer] 04-07-2015 10:00-0500 Body mass index (BMI) [Ratio] 41.24 kg/m2 Adeline [facility] [employer] [employer] 04-07-2015 10:00-0500 Body surface area Derived from formula 2.14 m2 [facility] [employer] [employer] 04-07-2015 10:00-0500 Body weight 110.68 kg Muna [facility]send [facility] [employer] [employer] 04-07-2015 10:00-0500 Diastolic blood pressure 77 mm[Hg] [facility] [employer] 04-07-2015 10:00-0500 Heart rate 85 /min [facility] [place] [facility] [employer] 04-07-2015 10:00-0500 Systolic blood pressure 138 mm[Hg] Muna Townsend [facility] [employer] [employer] 01-06-2015 09:37-0400 Body height 163.83 cm Zack Olmos MD Work Phone: [facility] [employer] 01-06-2015 09:37-0400 Body mass index (BMI) [Ratio] 40.9 kg/m2 Zack Olmos MD Work Phone: [facility] [employer] 01-06-2015 09:37-0400 Body surface area Derived from formula 2.13 m2 Zack Olmos MD Work Phone: [employer] 01-06-2015 09:37-0400 Body temperature 97.7 [degF] Zack Olmos MD Work Phone: [employer] 01-06-2015 09:37-0400 Body weight 109.77 kg Zack Olmos MD Work Phone: [facility] [employer] 01-06-2015 09:37-0400 Diastolic blood pressure 70 mm[Hg] Zack Olmos MD Work Phone: [facility] [employer] 01-06-2015 09:37-0400 Heart rate 69 /min Zack Olmos MD Work Phone: [facility] [employer] 01-06-2015 09:37-0400 Inhaled oxygen concentration 20 % Zack Olmos MD Work Phone: [facility] [employer] 01-06-2015 09:37-0400 SaO2% (BldA) [Mass fraction] 97 % Zack Olmos MD Work Phone: [facility] [employer] 01-06-2015 09:37-0400 Systolic blood pressure 132 mm[Hg] Zack Olmos MD Work Phone: [facility] [employer] 12-23-2014 08:19-0400 Body temperature 101.6 [degF] Umu Nye RN [facility] [employer] 12-23-2014 08:19-0400 Body weight 115.67 kg Umu Nye RN [facility] [employer] 12-23-2014 08:19-0400 Diastolic blood pressure 86 mm[Hg] Umu Nye RN [facility] [employer] 12-23-2014 08:19-0400 Heart rate 115 /min Umu Nye RN [facility] [employer] 12-23-2014 08:19-0400 Inhaled oxygen concentration 20 % Umu Nye RN [facility] [employer] 12-23-2014 08:19-0400 SaO2% (BldA) [Mass fraction] 89 % Umu Nye RN [facility], Inc[facility] 12-23-2014 08:19-0400 Systolic blood pressure 184 mm[Hg] Umu Nye RN [facility].; [employer] 09-26-2014 [id number]:[id number] Body height 163.83 cm AdelineMaren Townsend [facility], [facility].; [employer] 09-26-2014 10:28-0400 Body mass index (BMI) [Ratio] 41.91 kg/m2 [facility] [place] [facility] [employer] 09-26-2014 10:28-0400 Body surface area Derived from formula 2.16 m2 [facility] [place] [facility] [employer] [facility], [facility].; [employer] 09-26-2014 10:[id number] Body weight 112.49 kg [facility] [place] HEEL ST[employer]ENER [employer] [facility], [facility].; [employer] 09-26-2014 10:28-0400 Diastolic blood pressure 79 mm[Hg] AdelineMaren Townsend HEEL ST[employer]ENER [employer] [facility], [facility].; [employer] 09-26-2014 10:28-0400 Heart rate 65 /min [facility] [place] [facility] [employer] [facility], [facility].; [employer] 09-26-2014 10:28-0400 Systolic blood pressure 141 mm[Hg] Adeline [place] HE[employer]ENER [employer] [facility], [facility].; [employer] 08-01-2014 09:020400 Body height 163.83 cm [facility] [place] HEEL STIFFENER [employer] [facility], [facility].; [employer] 08-01-2014 09:020400 Body mass index (BMI) [Ratio] 41.07 kg/m2 [facility] [place] [facility].; [employer] 08-01-2014 09:02-0400 Body surface area Derived from formula 2.14 m2 [facility] [place] HEEL ST[employer]ENER [employer] [facility], [facility].; [employer] 08-01-2014 09:020400 Body weight 110.22 kg Muna Townsend ASHER [employer] [facility], [facility].; [employer] 08-01-2014 09:02-0400 Diastolic blood pressure 78 mm[Hg] Muna [facility]send [facility] [employer] 08-01-2014 09:02-0400 Heart rate 78 /min Muna Townsend [facility] [employer] 08-01-2014 09:02-0400 Systolic blood pressure 135 mm[Hg] Muna Townsend [facility], [facility].; [employer] 06-20-2014 09:50-0400 Body height 163.83 cm Marisela Chavis LPN [employer] [facility], [facility].; [employer] 06-20-2014 09:50-0400 Body mass index (BMI) [Ratio] 41.24 kg/m2 Marisela Chavis LPN [employer] [facility], [facility].; [employer] 06-20-2014 09:50-0400 Body surface area Derived from formula 2.14 m2 Marisela Chavis LPN [employer] [employer] 06-20-2014 09:50-0400 Body temperature 97.9 [degF] Marisela Chavis LPN [employer] 06-20-2014 09:50-0400 Body weight 110.68 kg Marisela Chavis LPN [employer] 06-20-2014 09:50-0400 Diastolic blood pressure 76 mm[Hg] Marisela Chavis LPN [employer] 06-20-2014 09:50-0400 Heart rate 73 /min Marisela Chavis LPN [employer] 06-20-2014 09:50-0400 Systolic blood pressure 143 mm[Hg] Marisela Chavis LPN [employer] 03-24-2014 08:07-0500 Body height 163.83 cm Muna Townsend HEEL ST[employer]ENER [employer] [facility], [facility].; [employer] 03-24-2014 08:07-0500 Body mass index (BMI) [Ratio] 39.04 kg/m2 [facility]una [facility]send [facility].; [employer] 03-24-2014 08:07-0500 Body surface area Derived from formula 2.09 m2 Muna Townsend [facility].; [employer] 03-24-2014 08:07-0500 Body weight 104.78 kg Muna Townsend [facility] [employer] [employer] 03-24-2014 08:07-0500 Diastolic blood pressure 78 mm[Hg] Muna [facility]send [facility] [employer] 03-24-2014 08:07-0500 Heart rate 81 /min Adeline [place] [facility].; [employer] 03-24-2014 08:07-0500 Systolic blood pressure 147 mm[Hg] Muna Townsend [facility] [employer] [employer] 01-22-2014 11:07-0500 Body height 163.83 cm Muna Townsend [facility].; [employer] 01-22-2014 11:07-0500 Body mass index (BMI) [Ratio] 37.18 kg/m2 Muna Townsend [facility] [employer] [employer] 01-22-2014 11:07-0500 Body surface area Derived from formula 2.05 m2 Muna Townsend HE[employer] 01-22-2014 11:07-0500 Body temperature 97.4 [degF] Muna Townsend [facility] [employer] [employer] 01-22-2014 11:07-0500 Body weight 99.79 kg Muna Townsend HE[employer] ST[employer]ENER [employer] 01-22-2014 11:07-0500 Diastolic blood pressure 69 mm[Hg] Muna Townsend [facility] [employer] [facility], [facility].; [employer] 01-22-2014 11:07-0500 Heart rate 106 /min Muna Townsend [facility] [employer] [facility], [facility].; [employer] 01-22-2014 11:07-0500 Systolic blood pressure 112 mm[Hg] Muna [facility]send [facility] [employer] 01-15-2014 07:57-0500 Body height 163.83 cm Muna Townsend [facility].; [employer] 01-15-2014 07:57-0500 Body mass index (BMI) [Ratio] 37.18 kg/m2 Muna Townsend [facility] [employer] [facility], [facility].; [employer] 01-15-2014 07:57-0500 Body surface area Derived from formula 2.05 m2 Adeline [place] [facility] [employer] [facility], [facility].; [employer] 01-15-2014 07:57-0500 Body temperature 99.3 [degF] Muna Townsend [facility] [employer] 01-15-2014 07:57-0500 Body weight 99.79 kg Muna Townsend [facility].; [employer] 01-15-2014 07:57-0500 Diastolic blood pressure 69 mm[Hg] Muna Townsend [facility] [employer] [facility], [facility].; [employer] 01-15-2014 07:57-0500 Heart rate 106 /min AdelineMaren Townsend [facility].; [employer] 01-15-2014 07:57-0500 Systolic blood pressure 132 mm[Hg] Muna Townsend [facility] [employer] [employer] 01-13-2014 11:25-0500 Body height 163.83 cm Pilar Garcia [facility] [employer] [employer] 01-13-2014 11:25-0500 Body mass index (BMI) [Ratio] 37.18 kg/m2 Pilar Garcia HEEL ST[employer]ENER [employer] [facility], [facility].; [employer] 01-13-2014 11:25-0500 Body surface area Derived from formula 2.05 m2 Pilar Garcia HEEL ST[employer]ENER [employer] [facility], [facility].; [employer] 01-13-2014 11:25-0500 Body weight 99.79 kg Pilar Garcia [facility] [employer] [employer] 01-13-2014 11:25-0500 Diastolic blood pressure 79 mm[Hg] Pilarclemente Garcia [facility].; [employer] 01-13-2014 11:25-0500 Heart rate 109 /min Pilarclemente Garcia LPN [employer] 01-13-2014 11:25-0500 Systolic blood pressure 131 mm[Hg] Pilar Garcia LPN [employer] 07-30-2013 10:06-0400 Body height 163.83 cm Muna Townsend HEEL ST[employer]ENER [employer] 07-30-2013 10:06-0400 Body mass index (BMI) [Ratio] 38.53 kg/m2 Muna Townsend HEEL ST[employer]ENER [employer] [facility], [facility].; [employer] 07-30-2013 10:06-0400 Body surface area Derived from formula 2.08 m2 Muna Townsend ASHER [employer] 07-30-2013 10:06-0400 Body weight 103.42 kg Muna Townsend LPN [employer] 07-30-2013 10:06-0400 Diastolic blood pressure 83 mm[Hg] Muna Townsend ASHER [employer] 07-30-2013 10:06-0400 Heart rate 76 /min Muna Townsend HE[employer] ST[employer]ENER [employer] 07-30-2013 10:06-0400 Systolic blood pressure 132 mm[Hg] Muna Townsend ASHER [employer] [facility], Inc.; [employer] 06-21-2013 10:13-0400 Body height 163.83 cm Marisela Chavis HEEL STIFFENER [facility], [facility].; [employer] 06-21-2013 10:13-0400 Body mass index (BMI) [Ratio] 37.69 kg/m2 Marisela Chavis HEEL ST[employer]ENER [employer] [facility], Inc.; [employer] 06-21-2013 10:13-0400 Body surface area Derived from formula 2.06 m2 Marisela Chavis HEEL STIFFENER [employer] [facility], Inc.; [employer] 06-21-2013 10:130400 Body temperature 97.1 [degF] Marisela Chavis HEEL ST[employer]ENER [employer] [facility], Inc.; [employer] 06-21-2013 10:130400 Body weight 101.15 kg Marisela Chavis HEEL STIFFENER [employer] [facility], Inc.; [employer] 06-21-2013 10:13-0400 Diastolic blood pressure 69 mm[Hg] [facility]avis [facility].; [employer] 06-21-2013 10:13-0400 Heart rate 67 /min Marisela Chavis HEEL STIFFENER [employer] [facility], Inc.; [employer] 06-21-2013 10:13-0400 Systolic blood pressure 111 mm[Hg] Marisela Chavis HEEL STIFFENER [employer] [facility], Inc.; [employer] 03-04-2013 14:05-0500 Body height 163.83 cm Sandra [facility] [employer] 03-04-2013 14:05-0500 Body mass index (BMI) [Ratio] 35.72 kg/m2 Sandra King LPN [employer] [facility], Inc.; [employer] 03-04-2013 14:05-0500 Body surface area Derived from formula 2.01 m2 Sandra King HEEL STIFFENER [facility], Inc.; [employer], [employer] 03-04-2013 14:05-0500 Body weight 95.88 kg Sandra Wealonso [employer] [facility], Inc.; [employer] 03-04-2013 14:05-0500 Diastolic blood pressure 76 mm[Hg] Sandra King LPN [employer] [facility], Inc.; [employer] 03-04-2013 14:05-0500 Heart rate 71 /min Sandra King LPN [employer] [facility], Inc.; [employer], Inc. 03-04-2013 14:05-0500 Systolic blood pressure 175 mm[Hg] Sandra King LPUnm Sandoval Regional Medical CenterBOND [facility], Inc.; [employer], Inc. 02-18-2013 11:32-0500 Body height 163.83 cm Sandra King LPN [employer] [facility], Inc.; [employer], [employer]. 02-18-2013 11:32-0500 Body mass index (BMI) [Ratio] 35.07 kg/m2 Sandra King LPN [employer] [facility], Inc.; [employer], [employer]. 02-18-2013 11:32-0500 Body surface area Derived from formula 2 m2 Sandra King LPN [employer] [facility], [facility].; [employer], Inc. 02-18-2013 11:32-0500 Body temperature 98 [degF] Sandra King LPN [employer] [facility], Inc.; [employer], [employer]. 02-18-2013 11:32-0500 Body weight 94.12 kg Sandra King LPN [employer] [facility], [facility].; [employer], [employer]. 02-18-2013 11:32-0500 Diastolic blood pressure 82 mm[Hg] Sandra King LPN [employer], [employer].; [employer], Inc. 02-18-2013 11:32-0500 Heart rate 82 /min Sandra King LPN [employer], [employer].; [employer], [employer]. 02-18-2013 11:32-0500 Systolic blood pressure 135 mm[Hg] Sandra King LPN [facility].; [employer]. 01-31-2013 08:07-0500 Body height 163.83 cm Zack Olmos MD Work Phone: [employer].; [employer] 01-31-2013 08:07-0500 Body mass index (BMI) [Ratio] 35.83 kg/m2 Zack Olmos MD Work Phone: [employer].; [employer] 01-31-2013 08:07-0500 Body surface area Derived from formula 2.02 m2 Zack Olmos MD Work Phone: [employer].; [employer]. 01-31-2013 08:07-0500 Body temperature 101 [degF] Zack Olmos MD Work Phone: [employer].; [employer]. 01-31-2013 08:07-0500 Body weight 96.16 kg Zack Olmos MD Work Phone: [employer].; [employer]. 01-31-2013 08:07-0500 Diastolic blood pressure 72 mm[Hg] Zack Olmos MD Work Phone: [employer].; [employer] 01-31-2013 08:07-0500 Heart rate 101 /min Zack Olmos MD Work Phone: [employer].; [employer] 01-31-2013 08:07-0500 Systolic blood pressure 133 mm[Hg] Zack Olmos MD Work Phone: [employer].; [employer]. 01-29-2013 09:57-0500 Body weight 96.62 kg Zack Olmos MD Work Phone: [employer].; [employer] 01-29-2013 09:57-0500 Diastolic blood pressure 78 mm[Hg] Zack Olmos MD Work Phone: [employer]. 01-29-2013 09:57-0500 Heart rate 76 /min Zack Olmos MD Work Phone: [employer]. 01-29-2013 09:57-0500 Systolic blood pressure 128 mm[Hg] Zack Olmos MD Work Phone: [employer].; [employer]. 07-24-2012 09:20-0400 Body height 163.83 cm Zack Olmos MD Work Phone: [employer].; [employer]. 07-24-2012 09:20-0400 Body mass index (BMI) [Ratio] 36 kg/m2 Zack Olmos MD Work Phone: [employer]. 07-24-2012 09:20-0400 Body surface area Derived from formula 2.02 m2 Zack Olmos MD Work Phone: [employer].; [employer]. 07-24-2012 09:20-0400 Body weight 96.62 kg Zack Olmos MD Work Phone: [employer].; [employer]. 07-24-2012 09:20-0400 Diastolic blood pressure 72 mm[Hg] Zack Olmos MD Work Phone: [employer].; [employer]. 07-24-2012 09:20-0400 Heart rate 68 /min Zack Olmos MD Work Phone: [employer]. 07-24-2012 09:20-0400 Systolic blood pressure 138 mm[Hg] Zack Olmos MD Work Phone: [employer]. 01-24-2012 09:38-0500 Body temperature 97.9 [degF] Zack Olmos MD Work Phone: [employer].; [employer]. 01-24-2012 09:38-0500 Body weight 100.25 kg Zack Olmos MD Work Phone: [employer] [facility], [employer].; [employer], [employer] 01-24-2012 09:38-0500 Diastolic blood pressure 76 mm[Hg] Zack Olmos MD Work Phone: [facility] [employer], [employer].; [employer], [employer] 01-24-2012 09:38-0500 Heart rate 72 /min Zack Olmos MD Work Phone: [employer].; [employer] 01-24-2012 09:38-0500 Systolic blood pressure 136 mm[Hg] Zack Olmos MD Work Phone: [employer], [employer].; [employer], [employer] 10-18-2011 10:18-0400 Body height 163.83 cm [facility] [employer] [facility].; [employer] 10-18-2011 10:18-0400 Body mass index (BMI) [Ratio] 38.87 kg/m2 [facility].; [employer], [employer] 10-18-2011 10:18-0400 Body surface area Derived from formula 2.09 m2 [facility].; [employer], [employer] 10-18-2011 10:18-0400 Body weight 104.33 kg [facility].; [employer], Inc. 10-18-2011 10:18-0400 Diastolic blood pressure 89 mm[Hg] [facility].; [employer], Inc. 10-18-2011 10:18-0400 Heart rate 72 /min [facility], Inc.; [employer], [employer] 10-18-2011 10:18-0400 Systolic blood pressure 153 mm[Hg] [facility], Inc.; [employer], [employer] 08-02-2011 08:30-0400 Body height 163.83 cm Zack Olmos MD Work Phone: [employer]. 08-02-2011 08:30-0400 Body mass index (BMI) [Ratio] 41.07 kg/m2 Zack Olmos MD Work Phone: [employer].; [employer]. 08-02-2011 08:30-0400 Body surface area Derived from formula 2.14 m2 Zack Olmos MD Work Phone: [employer].; [employer]. 08-02-2011 08:30-0400 Body weight 110.22 kg Zack Olmos MD Work Phone: [employer].; [employer]. 08-02-2011 08:30-0400 Diastolic blood pressure 78 mm[Hg] Zack Olmos MD Work Phone: [employer]. 08-02-2011 08:30-0400 Heart rate 58 /min Zack Olmos MD Work Phone: [employer]. 08-02-2011 08:30-0400 Systolic blood pressure 126 mm[Hg] Zack Olmos MD Work Phone: [employer].; [employer]. 03-29-2011 10:18-0500 Body height 163.83 cm Lesley Armin Abrams HEEL STIFFENER [employer].; [employer]. 03-29-2011 10:18-0500 Body mass index (BMI) [Ratio] 40.59 kg/m2 Lesley C Jose Alberto HEEL ST[employer]ENER [employer].; [employer]. 03-29-2011 10:18-0500 Body surface area Derived from formula 2.13 m2 Lesley C Jose Alberto HE[employer] ST[employer] [facility].; [employer]. 03-29-2011 10:18-0500 Body weight 108.95 kg Lesley Armin Abrams HEEL STIFFENER [facility].; [employer]. 03-29-2011 10:18-0500 Diastolic blood pressure 77 mm[Hg] Lesley Abrams LPN [facility].; [employer]. 03-29-2011 10:18-0500 Heart rate 93 /min Lesley Abrams LPN [facility] Inc.; [employer] 03-29-2011 10:18-0500 Systolic blood pressure 136 mm[Hg] Lesley Abrams LPN [facility] Inc.; [employer]. 02-01-2011 10:29-0500 Body height 165.1 cm Zack Olmos MD Work Phone: [employer].; [employer]. 02-01-2011 10:29-0500 Body mass index (BMI) [Ratio] 42.6 kg/m2 Zack Olmos MD Work Phone: [employer].; [employer]. 02-01-2011 10:29-0500 Body surface area Derived from formula 2.2 m2 Zack Olmos MD Work Phone: [employer].; [employer]. 02-01-2011 10:29-0500 Body weight 116.12 kg Zack Olmos MD Work Phone: [employer].; [employer]. 02-01-2011 10:29-0500 Diastolic blood pressure 77 mm[Hg] Zack Olmos MD Work Phone: [employer].; [employer]. 02-01-2011 10:29-0500 Heart rate 65 /min Zack Olmos MD Work Phone: [employer].; [employer]. 02-01-2011 10:29-0500 Systolic blood pressure 122 mm[Hg] Zack Olmos MD Work Phone: [employer].; [employer]. 08-27-2010 08:32-0400 Body weight 114.31 kg Zack Olmos MD Work Phone: [employer].; [employer]. 08-27-2010 08:32-0400 Diastolic blood pressure 71 mm[Hg] Zack Olmos MD Work Phone: [employer].; [employer]. 08-27-2010 08:32-0400 Heart rate 61 /min Zack Olmos MD Work Phone: [employer].; [employer]. 08-27-2010 08:32-0400 Systolic blood pressure 128 mm[Hg] Zack Olmos MD Work Phone: [employer].; [employer]. 05-13-2010 17:01-0500 Body temperature 96.7 [degF] Zack Olmos MD Work Phone: [employer].; [employer]. 05-13-2010 17:01-0500 Body weight 117.03 kg Zack Olmos MD Work Phone: [employer].; [employer]. 05-13-2010 17:01-0500 Diastolic blood pressure 83 mm[Hg] Zack Olmos MD Work Phone: [employer].; [employer]. 05-13-2010 17:01-0500 Heart rate 65 /min Zack Olmos MD Work Phone: [employer]. 05-13-2010 17:01-0500 Inhaled oxygen concentration 20 % Zack Olmos MD Work Phone: [employer]. 05-13-2010 17:01-0500 SaO2% (BldA) [Mass fraction] 96 % Zack Olmos MD Work Phone: [employer].; [employer]. 05-13-2010 17:01-0500 Systolic blood pressure 183 mm[Hg] Zack Olmos MD Work Phone: [employer].; [employer]. 02-26-2010 08:51-0500 Body weight 119.75 kg Zack Olmos MD Work Phone: [facility], [employer] 02-26-2010 08:51-0500 Diastolic blood pressure 66 mm[Hg] Zack Olmos MD Work Phone: [facility], [employer].; [employer], [employer] 02-26-2010 08:51-0500 Heart rate 59 /min Zack Olmos MD Work Phone: [employer] [facility].; [employer], [employer] 02-26-2010 08:51-0500 Systolic blood pressure 130 mm[Hg] Zack Olmos MD Work Phone: [employer] [facility], [employer].; [employer], [employer] 01-06-2010 15:19-0400 Body height 165.1 cm [facility].; [employer], [employer]. 01-06-2010 15:19-0400 Body mass index (BMI) [Ratio] 43.43 kg/m2 [facility], [facility].; [employer], [employer]. 01-06-2010 15:19-0400 Body surface area Derived from formula 2.22 m2 [facility], [facility].; [employer], [employer] 01-06-2010 15:19-0400 Body temperature 96.9 [degF] [facility].; [employer], [employer]. 01-06-2010 15:19-0400 Body weight 118.39 kg [facility], [facility].; [employer], [employer]. 01-06-2010 15:19-0400 Diastolic blood pressure 78 mm[Hg] [facility], [employer].; [employer], [employer]. 01-06-2010 15:19-0400 Heart rate 72 /min [facility], [facility].; [employer], [employer]. 01-06-2010 15:19-0400 Inhaled oxygen concentration 20 % [facility].; [employer]. 01-06-2010 15:19-0400 SaO2% (BldA) [Mass fraction] 96 % [facility].; [employer]. 01-06-2010 15:19-0400 Systolic blood pressure 160 mm[Hg] Muna Town[facility].; [employer]. Encounters Encounter Date Encounter Type Care Provider Facility Start: 03-30-2023 Orders Only Sherry George DO Work Phone: [facility] Start: 03-30-2023 End: 03-30-2023 Office outpatient visit 25 minutes Zack Olmos MD Work Phone: [employer] [facility] Start: 03-30-2023 Zack Olmos MD Work Phone: [facility] [employer] [facility] Start: 03-27-2023 End: 03-27-2023 Zack Olmos MD Work Phone: [facility] Start: 03-24-2023 ambulatory LENIN RAMIREZ [facility] Start: 03-21-2023 End: 03-22-[address] [facility] Start: 01-23-2023 ambulatory LENIN RAMIREZ [facility] Start: 12-22-2022 End: 12-22-2022 Home visit Андрей Claros RN [facility] Procedures Date Procedure Procedure [...] End: 04-26-2022 AIRWAY ETT Froy Ochoa Mason HYDRATOR Work Phone: Start: 04-18-2022 End: 04-19-2022 Ecg [...] ecg w/least 12 lds i&r only Zack Oloms MD Work Phone: Start: 01-12-2014 End: 01-12-2014 [...] CABG (coronary artery bypass graft) [place] [employer]ECTIVE Work Phone: History of coronary artery bypass [...] 03-20-2032 Screening for malignant neoplasm of colon [facility] Start: 12-07-2023 CLASS III : OFFICE VISIT CLASS III : OFFICE VISIT [facility] Start: 08-31-2023 CLASS III : OFFICE VISIT CLASS III : OFFICE VISIT [facility] Start: 06-08-2023 End: 06-08-2023 Patient encounter procedure 06/08/2023 9:30 AM EDT Office Visit [facility] [address] [place] [address] Lenin Ramirez MD [address] [facility] [address] [place] [address] [facility] Start: 06-01-2023 CLASS III : OFFICE VISIT CLASS III : OFFICE VISIT [facility] Start: 05-30-2023 Alanine aminotransferase measurement CLASS III : ALT [facility] Start: 05-30-2023 Thyroid stimulating hormone measurement Class III : TSH [facility] Start: 05-02-2023 End: 05-02-2023 Patient encounter procedure 05/02/2023 2:15 PM EST Office Visit [facility] [address] [facility], [address] [phone] Sherry George DO [address] [place] [address] [facility] Start: 04-25-2023 End: 04-25-2023 Patient encounter procedure 04/25/2023 1:00 PM EST Office Visit [facility] [address] [facility] [address] [place] [address] Sherry George DO [address] [address] [facility] Start: 04-05-2023 CLASS III : OFFICE VISIT CLASS III : OFFICE VISIT [facility] Start: 03-08-2023 End: 12-06-2023 Carcinoembryonic antigen measurement CEA Lab Routine Elevated CEA Malignant neoplasm of ascending colon (HCC) Expected: 03/08/2023 (Approximate), Expires: 12/06/2023 [facility] Immunizations Immunization Date Immunization Notes Care Provider Jef rodaret 05-06-2020 Zack Olmos MD Work [facility]: [facility] [employer]. 04-08-2020 Zack Olmos MD Work Phone: [facility] 11-27-2019 influenza virus vacc ine, unspecified formulation Zack Olmos MD Work Phone: [facility] [employer]. 11-27-2019 influenza, injectabl e, quadrivalent, contains preservative Zack Olmos MD Work Phone: [facility] 03-23-2019 zoster vaccine recombinant Leonila Walls [facility] 09-25-2018 Shingrix (PF) Zack Olmos MD Work Phone: [facility]. 01-30-2018 pneumococcal polysaccharide vaccine, 23 valent Zack Olmos MD Work Phone: [facility].; [facility]. 01-11-2017 influenza, injectabl e, quadrivalent, contains preservative Zack Olmos MD Work Phone: [facility]. 01-12-2014 pneumococcal conjuga te vaccine, 13 valent Zack Olmos MD Work Phone: [facility].; [facility]. 12-11-2012 influenza, seasonal, injectable Zack Olmos MD Work Phone: [facility]. 01-11-2011 influenza, seasonal, injectable Zack Olmos MD Work Phone: [facility].; [facility]. 01-11-2011 Zack Olmos MD Work Phone: [facility].; [employer]. 01-20-2010 influenza, seasonal, injectable Zack Olmos MD Work Phone: [facility] [employer] [facility]. 01-20-2010 Zack Olmos MD Work Phone: [facility] Payers Date Payer Category Payer Unknown MMO [employer] [place] [employer] [place] TRADITIONAL xxxxxxxxxxxx 2019-Present [id number] 2019 Unknown [id number] .[id number] 2019 Unknown [id number] [id number] .[id number] 2019 Unknown [id number] 2011 Medicare xxxxxxxxxx [id number] 2011 Medicare MEDICARE MEDICAR E PART A & B xxxxxxxxxxx 2011-Present [place] xxxxxxxxxxx [id number] .[id number] 2011 Medicare [id number] .[id number] 2011 Medicare MEDICARE MEDICAR E PART A & B [id number] 2011-Present [phone] S [id number] PART A CLAIMS [address] [address] [place] [address] [id number] .[id number] 2011 Medicare [id number] 2011 Unknown [employer] [place] xxxxxxxx 2011-Present xxxxxxxx [id number] .[id number] 2011 Unknown [id number] 1946 Unknown [id number] 2.16.840.1.635757.3.579.2. 1946 Unknown [id number] 2.16.840.1.065743.3.579.2.900 1946 Unknown [id number] 2.16.840.1.118115.3.579.2 1946 Unknown [id number] 2.16.840.1.085424.3.579.2. 1946 Unknown [id number] 2.16.840.1.994335.3.579.2 1946 Unknown [id number] 2.16.840.1.584658.3.579.2 1946 Unknown [id number] 2.16840.1.070638.3.579.2 1946 Unknown [id number] 2.16.840.1.421861.3.579.2 1946 Unknown [id number] 2.16.840.1.153598.3.579.2 1946 Unknown [id number] 2.16.840.1.895032.3.579.2 1946 Unknown [id number] 2.16.840.1.932820.3.579.2 1946 Unknown [id number] 2.16.840.1.057258.3.579.2 1946 Unknown [id number] 2.16.840.1.881951.3.579.2 1946 Unknown [id number] 2.16.840.1.071789.3.579.2 1946 Unknown [id number] 2.16.840.1.169847.3.579.2 1946 Unknown [id number] 2.16.840.1.715787.3.579.2. 1946 Unknown [id number] 2.16.840.1.253311.3.579.2. 1946 Unknown [id number] 2.16.840.1.196724.3.579.2. 1946 Unknown [id number] 2.16.840.1.500505.3.579.2. 1946 Unknown [id number] 2.16.840.1.109333.3.579.2. 1946 Unknown [id number] 2.16.840.1.766451.3.579.2. 1946 Unknown [id number] 2.16.840.1.225904.3.579.2. 1946 Unknown [id number] 2.16.840.1.088859.3.579.2. 1946 Unknown [id number] 2.16.840.1.809853.3.579.2.90 Unknown [id number] 2.16.840.1.063661.3.249.13 Social History Date Type Detail Facility Start: 05-04-2017 End: 08-10-2021 Tobacco smoking status HIIS Former smoker [facility] End: 03-13-1989 History of tobacco use Current smoker [facility] Start: 1945 Sex Assigned At Not on file [facility] Start: 08-11-2014 Alcohol Comment occasionally [facility] Start: 11-09-2018 End: 04-06-2022 Alcohol intake Current drinker of alcohol (finding) [facility] Start: 07-12-2021 End: 05-31-2022 Exposure to SARS-CoV-2 (event) Not sure [facility] Start: 11-04-2019 End: 08-10-2021 Tobacco use and exposure Never used [facility] Exposure to SARS-CoV -2 (event) Unable to assess [facility] Start: 11-23-2020 End: 12-06-2022 [facility] intake [facility] Start: 11-23-2020 History SDOH Alcohol Comment about q3mo [facility] End: 03-13-1989 History of tobacco use Cigarette Smoker [facility] Start: 04-27-2022 End: 12-06-2022 Alcohol intake Ex-drinker (finding) [facility] Start: 05-31-2022 End: 12-06-2022 Tobacco use panel [facility] Start: 07-20-2018 Gender identity Identifies as male gender (finding) [facility] Start: 07-20-2018 Sexual orientation Heterosexual (finding) [facility] Tobacco smoking status No Smokin g Status Entered [facility] Sex Assigned At Male [facility] Lack of Transportati on (Medical) No [facility] None. [facility], [employer].; [employer] [facility] Former smoker. [facility] Functional Status Date Assessment Result Facility 11-27-2022 Functional Status Room check performed [facility] 11-27-2022 Functional Status [facility] 11-27-2022 Functional Status Breakfast Percent 25 [facility] 11-27-2022 Functional Status bilateral knee high applied/on [facility] 11-27-2022 Functional Status [facility] 11-27-2022 Functional Status [facility] 11-26-2022 Functional Status Nurse Pricilla oyu q2hrs Performed 7pm-11pm [facility] 11-26-2022 Functional Status [facility] 11-26-2022 Functional Status [facility] 11-26-2022 Functional Status [facility] 11-26-2022 Functional Status Assistive Isabel ce Walker [facility] 11-25-2022 Functional Status Independent [facility] 11-25-2022 Functional Status [facility] 11-25-2022 Functional Status Done [facility] 11-24-2022 Functional Status Pt's oldest da radha is a nurse and lives close. [facility] 11-24-2022 Functional Status Assistive Equi pment elevated on pillows [facility] 11-24-2022 Functional Status heel(s)s elevated [facility] 11-24-2022 Functional Status [facility] 11-24-2022 Functional Status [facility] 11-24-2022 Functional Status Sensory Deficits None [facility] NEGATED: Highlighted row Functional performance Functional status health issues are not documented [facility] Work Phone: Mental Status Date Assessment Result Facility 11-27-2022 Mental Status Orientation Orie nted x 4 [facility] 11-26-2022 [facility]-26[facility] Status [facility] 11-26-2022 Mental Status Orientation Assessment Oriented x 4 [facility] 11-25-2022 Mental Status [facility] 11-25-2022 Mental Status [facility] NEGATED: Highlighted row Cognitive function [Interpretation] Cognitive status health issues are not documented [facility] Work Phone: Clinical Notes 08-03-2020 to 12-21-2022 Actions Note Date & Type Note Facility documented in this encounter [id number] History of Present illness Narrative* Sherry George, [...] unintentional weight loss. He was admitted to [facility] with sepsis 11/23 - 11/27/22, suspected to be from right sided perineal cellulitis. He never underwent I&D or debridement, and no other source of infection was found. He is currently taking a 2nd week of cefdinir and flagyl. 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 Ramirez General Surgeon, [facility]: Dr. Pizano CANCER HISTORY 03/2022 -- [...] (HCC) 03/2018 Coronary artery disease Dialysis patient ([facility]) M-W-F ED (erectile dysfunction) FSGS (focal segmental [...] BYPASS GRAFT; Surgeon: Mil Dee MD; Location: [facility] Main OR; Service: Cardiothoracic CARDIAC CATHETERIZATION N/A 08/11/2014 Procedure: Left Heart Cath Possible PTCA/Stent; Surgeon: Lenin Ramirez MD; Location: [facility] [place]; Service: CARDIAC CATHETERIZATION Right 12/31/2014 Procedure: Left Heart Cath Possible PTCA/Stent; Surgeon: Ranulfo Cobb MD; Location: [facility] [place]; Service: CARDIAC CATHETERIZATION 08/11/2014 EF: 55% CARDIAC CATHETERIZATION 11/06/2006 EF: 45% CARDIAC CATHETERIZATION 08/09/2005 EF: 50% CARDIAC CATHETERIZATION 07/08/2005 EF: 45% CARDIAC CATHETERIZATION 12/31/2014 EF: 55% COLECTOMY RIGHT Right 04/26/2022 Procedure: RIGHT OPEN HEMICOLECTOMY; Surgeon: Sherry George DO; Location: [facility] Main OR; Service: General Surgery CORONARY ANGIOPLASTY WITH STENT PLACEMENT 08/09/2005 NORM- CX, RCA CORONARY ANGIOPLASTY WITH STENT PLACEMENT 07/08/2005 NORM- RCA CORONARY STENT PLACEMENT FOOT SURGERY Right hemodialysis fistula graft placement 12/14/2020 INSERTION PLEURAL CATHETER Right 01/18/2021 Procedure: RIGHT PLEUR X CATHETER PLACEMENT; Surgeon: Jalil Sparks MD; Location: [facility] HYBRID OR; Service: Cardiothoracic INSERTION PLEURAL CATHETER Left 01/19/2021 Procedure: LEFT PLEUR X CATHETER PLACEMENT; Surgeon: Jalil Sparks MD; Location: [facility] Main OR; Service: Cardiothoracic INTERVENTIONAL RADIOLOGY PROCEDURE 08/27/2020 IR THORACENTESIS LT 08/27/2020 Jesus Choudhary MD [facility] INTERVENTION RAD INTERVENTIONAL RADIOLOGY PROCEDURE 08/27/2020 IR THORACENTESIS RT 08/27/2020 Jesus Choudhary MD [facility] INTERVENTION RAD INTERVENTIONAL RADIOLOGY PROCEDURE 10/27/2020 IR THORACENTESIS LT 10/27/2020 Varun Kathleen MD [facility] INTERVENTION RAD INTERVENTIONAL RADIOLOGY PROCEDURE 10/27/2020 IR THORACENTESIS RT 10/27/2020 Varun Kathleen MD [facility] INTERVENTION RAD JOINT REPLACEMENT knee replacement KNEE SURGERY REMOVAL PLEURAL CATHETER Bilateral 08/12/2021 Procedure: BILATERAL PLEURAL CATHETERS REMOVAL; Surgeon: Jalil Sparks MD; Location: [facility] Main OR; Service: Cardiothoracic RENAL BIOPSY TONSILLECTOMY [...] months, for elevated CEA documented in this [id number] Evaluation + Plan note* Assessment & Plan [...] also not appropriate at the present time. [id number] Evaluation + Plan note* Assessment & Plan Note - Lenin Ramirez MD - 12/06/2022 12:27 PM EDTAssociated Problem(s): Hyperlipidemia He remains on moderate dose, high potency statin therapy which he tolerates well with adequate lipid levels. No changes were made today. [id number] Miscellaneous Notes* Assessment & Plan Note - [...] EDT Associated Problem(s): Coronary artery disease involving mentasta coronary artery of mentasta heart without angina pectoris Ed continues doing well from an ischemic standpoint with a long history of coronary disease status post surgical revascularization in August 2020. He has no angina and no nitroglycerin use. documented in this [id number] Evaluation + Plan note* Assessment & Plan [...] therapy given his persistent hypotension and hemodialysis. [id number] Evaluation + Plan note* Assessment & Plan Note - Lenin Ramirez MD - 12/06/2022 12:24 PM EDTAssociated Problem(s): Coronary artery disease involving mentasta coronary artery of mentasta heart without angina pectoris Ed continues doing well from an ischemic standpoint with a long history of coronary disease status post surgical revascularization in August 2020. He has no angina and no nitroglycerin use. [id number] History of Present illness Narrative* Lenin Ramirez [...] , Rfl: Assessment/Plan: Coronary artery disease involving mentasta coronary artery of mentasta heart without angina pectoris Ed continues doing [...] at the present time. documented in this [id number] Hospital Discharge instructions Patient Education 11/27/2022 13:25:49 [...] Follow these instructions at home: Medicines Take pxdn-luy-xnuyksu and prescription medicines only as told by [...] often using soap and water. Use hand test deskman if soap and water are not available. [...] 10/05/2018 Document Revised: 10/05/2018 Document Reviewed: 10/05/2018 [employer] Patient Education 2020 [employer] Follow Up Care 11/23/2022 18:14:48 With:ZACK OLMOS MD Address: [address] [place] [address] [place] [address]- [phone] When:3-7 days [facility] 09-17-2023 Discharge summary Date of Service 11/27/2022 [...] depression and gout. Patient was admitted to [facility] on 11/23/2022 as a transfer from [facility] due to septic shock secondary to peritoneal [...] OLMOS MD When Within 3-7 days Where: [address] [place] [address] [place] [address]- [phone] Follow Up Labs/Studies 1. No follow up [...] KATELIN MEZA DO on 11/27/2022 02:06 PM [facility] [id number] Note Discharge Instructions Thank you for allowing [facility] to assist you with your healthcare needs. The following is importantdischarge information regarding your hospital visit. Your Care Team ZACK OLMOS MD What to do next Follow Up Appointments Follow Up with ZACK OLMOS MD When Within 3-7 days Where: [address] [place] [address] [place] [address]- [phone] The Following Activity and Diet Have Been [...] and or supplements as they may [facility]. What How Much When Instructions Last Dose New cefdinir (cefdinir 300 mg oral capsule) 1 cap by mouth Every 24 hours Duration: 7 Days Pickup at [facility] 172 New metroNIDAZOLE (metroNIDAZOLE 500 mg oral tablet) 1 tab(s) by mouth Every 8 hours Duration: 7 Days Pickup at [facility] 1724 Unchanged albuterol (albuterol 2.5 mg/ 3 [...] [facility]: [address], [place] [phone] Please take this list to your next [...] Follow these instructions at home: Medicines Take pvrn-lwl-luepmls and prescription medicines only as told by [...] often using soap and water. Use hand test deskman if soap and water are not available. [...] 10/05/2018 Document Revised: 10/05/2018 Document Reviewed: 10/05/2018 [employer] Patient Education 2020 [employer]. Additional Information VACCINATE! IT SAVES LIVES! Members of the community who have not yet received the COVID-19 vaccine and would like to receive it can visit one of [facility] vaccine clinics. There are many vaccine clinic locations within the [facility]. For locations and available times, please visit [email or web address].[place].gov/. It is important to note that some COVID mobile vaccine clinics are held outdoors and may be canceled in rainy or stormy conditions. To learn more about pediatric vaccinations (ages 5-11), we invite you to visit the [facility] webpage. https://www.[facility].org/pages/[email or web address]-Yajec-Gxedtksapjb-Vvfslnxaop-Ensiw-Uhu stions.htmlTo learn more about the COVID-19 vaccine, we invite you to visit the CDC website for a list of frequently asked questions.https://www.cdc.gov/coronavirus/2019-ncov/vaccines/faq.html [facility] Patient Portal Access Instructions: Stay connected with your healthcare team and access your personal medical information anytime with the [facility] Patient Portal. Please follow the directions below to create your [facility] account: 1.Access the email account you provided upon registration to the hospital/physician office.2.Look for an invitation email from [facility].3.Open the email and access the invitation link: AcceptInvitation to [facility].4.Fill in the required jimenez to create your account. To access your account, visit [facility]/Zenos[employer]art. Click the blue button labeled Access Patient [...] who you will allowto register on the [facility] [email or web address] Patient Portal for access to your information. You can also access the [facility] on the [facility] catracho. Simply click on Patient Portal and then log into your account. If you would like to receive a full copy of your medical records, please contact the [facility] Medical Records Department by calling [phone], Monday through Monday between 8 a.m. and [...] Call your local pharmacy or go to [email or web address] to find one close to you.3.Make use of household items: Use cat litter or old coffee grounds to dispose medications if other options arenot available. Mix your drugs with these household products, seal them in an airtight container andthrow it into the garbage. Call [facility]: [phone] to be sure your drugs can be [...] aware that I should contact my doctor. 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: Date/Time: Relationship to Patient: Witness Name/Signature: Date/Time: [facility] [id number] Respiratory therapy Hospital Progress note Respiratory Therapy Evaluation Entered On: 11/27/2022 10:11 EDT Performed On: 11/27/2022 10:11 EDT by Zuly Rodriguez LINEN ROOM HOUSEPERSON Respiratory Therapy Evaluation RT Assessment [Frequency/Schedule] : changed to TID per protocol Zuly Rodriguez LINEN ROOM HOUSEPERSON - 11/27/2022 10:52 EDT Chest X-Ray : Infiltrates, atelectasis, pleural effusion Breath Sounds (RT) : Decreased bilaterally Respiratory Pattern (RT) : Regular RR=12-20 Cough (RT) : Strong, non-productive Respiratory Therapy Evaluation Score : 8 Respiratory Evaluation Triage Score : 4 - (6-10) Freq: TIDRT & Albuterol Q2hRT prn Zuly Rodriguez LINEN ROOM HOUSEPERSON - 11/27/2022 10:28 EDT Pulmonary Status : Pulmonary disorder Surgical Status : No surgeries Level of Activity : Ambulatory with assistance Mental Status : Alert, oriented Zuly Rodriguez LINEN ROOM HOUSEPERSON - 11/27/2022 10:11 EDT Digitally Signed by Zuly Rodriguez LINEN ROOM HOUSEPERSON on 11/27/2022 10:52 AM [facility] [id number] Note Date of Service 11/26/2022 Chief Complaint [...] depression and gout. Patient was admitted to [facility] on 11/23/2022 as a transfer from [facility] due to septic shock secondary to peritoneal [...] KATELIN MEZA DO on 11/26/2022 02:09 PM [facility] [id number] Nephrology Progress note Date of Service November [...] ROSANNA KEITA MD on 11/26/2022 12:38 PM [facility] [id number] Note Date of Service 11/25/22 Chief Complaint [...] surgery and anxiety/depression. Patient was transferred from [facility] to [facility] on 11/23/2022 with worsening right-sided perianal pain. [...] blood pressure stabilized, he was transferred to [facility] on 11/25/2022. Patient seen today post [...] by JOHNNY VALENCIA on 11/25/2022 03:01 PM [facility] [id number] Note Date of Service 11/25/22 Chief Complaint [...] surgery and anxiety/depression. Patient was transferred from [facility] to [facility] on 11/23/2022 with worsening right-sided perianal pain. [...] felt there was no urgent need for dialysis.The patient's blood pressure stabilized, he was transferred to [facility] on 11/25/2022. Patient seen today post [...] by JOHNNY VALENCIA on 11/25/2022 03:01 PM [facility] CenterKymmiazo27-89-1413 Nephrology Progress note Date of Service 11-25 [...] ASHLEY MARLEY MD on 11/25/2022 10:45 AM [facility] [id number] Respiratory therapy Hospital Progress note Respiratory Therapy [...] by Avi Valencia on 11/24/2022 08:33 PM [facility] [id number] History and physical note Date of Service 11/24/2022 Chief Complaint Weakness, fatigue, vomiting History of Present Illness This is a 77-year-old gentleman with history of ESRD on HD [M/W/F], CAD s/p CABG, Paroxysmal A.fib on Amiodarone, not on anticoagulation due to recurrent bleeding from dialysis site. He presents from [facility] for worsening right perianal pain associated [...] loss of consciousness. On arrival to [facility] he was hypotensive, tachycardic, in atrial fibrillation. He was given gentle IV fluids and broad-spectrum antibiotics. CT scan of the abdomen did not show any abscess/fluid collection. Chest x-ray showed no acute abnormality. He was started on peripheral norepinephrine andbe transferred to [facility] medical intensive care unit for evaluation of [...] CONRADO PEREZ MD on 11/24/2022 07:02 AM [facility] [id number] Evaluation + Plan noteExtracted from: Title:History and [...] He presented to the emergency room at [facility] in [place] with perianal pain and fatigue. Apparently, he was also noted to have altered mental status. This is after he underwent dialysis for his chronic end-stage kidney disease. He was found to have perianal redness, however, CT scan of the abdomen showed no abscess formation. He was found to be slightly hypotensive and was given IV fluids and started on norepinephrine and transferred to [facility]. Repeat CAT scan of the abdomen again [...] consultation if cellulitis worsens Anjali Lopez MD [facility] Diagnostic Tests Pending * Urinalysis 11/24/22 [facility] 09-14-2023 Nephrology Consult note Date of Service [...] ASHLEY MARLEY MD on 11/24/2022 10:24 AM [facility] [id number] Note ORIGINAL EXAMINATION: CT OF THE ABDOMEN [...] Sign Date: 11/24/2022 7:33:13 AM Ordering Provider: [facility]09-14-2023 Note ORIGINAL EXAMINATION: ONE XRAY VIEW OF [...] Sign Date: 11/24/2022 6:36:00 AM Ordering Provider: [facility]09-14-2023 NoteAtrial fibrillation Nonspecific IVCD with LAD Inferior infarct, old Electronic Signature: TIP LUCIO MD 11/24/2022 12:14:16[facility] 09-14-2023 History and physical note Date of Service 11/24/2022 Chief Complaint Weakness, fatigue, vomiting History of Present Illness This is a 77-year-old gentleman with history of ESRD on HD [M/W/F], CAD s/p CABG, Paroxysmal A.fib on Amiodarone, not on anticoagulation due to recurrent bleeding from dialysis site. He presents from [facility] for worsening right perianal pain associated [...] loss of consciousness. On arrival to [facility] he was hypotensive, tachycardic, in atrial fibrillation. He was given gentle IV fluids and broad-spectrum antibiotics. CT scan of the abdomen did not show any abscess/fluid collection. Chest x-ray showed no acute abnormality. He was started on peripheral norepinephrine andbe transferred to [facility] medical intensive care unit for evaluation of [...] CONRADO PEREZ MD on 11/24/2022 07:02 AM [facility] [id number] Telephone encounter Note* Telephone Encounter - Lima Beasley TECHNOLOGIST - 11/03/2022 3:01 PM EDT Prescription for Amiodarone 100 was sent to the wrong pharmacy [id number] Miscellaneous Notes* Telephone Encounter - Lima Beasley TECHNOLOGIST - 11/03/2022 3:01 PM EDT Prescription for Amiodarone 100 was sent to the wrong pharmacy documented in this [id number] Patient's home Progress note* Actions The pt's dressing and wound care had been completed earlier this morning. The pt is requesting that the dressing not be removed, and no picture taken as the wound is in a private area, and the pt has a visitor present at this time. The pt does not wish to interrupt the visit. documented in this encounter [id number] Patient's home Progress note* Actions Rehab Potential: good Clinical Summary/ [place]IN[place]AH [place] the Picture: Cert period 10/28/22 - 12-26-22 Why is home care continuing to see this patient (any change in status, diagnosis, or new treatments)? Wound education/assessment. Pt still has small open area to his coccyx. Amirah continues to be placed in the wound bed, and has shown progress. Was there any change in the disciplines caring for this patient (new PT, VICE PRESIDENT COMPLIANCE d/c)? No. SN continues. Any labs or [...] home care services. documented in this encounter [id number] Patient's home Progress note* Actions Rehab Potential: good Clinical Summary/ [place]INORAH [place] the Picture: Cert period 10/28/22 - 12-26-22 Why is home care continuing to see this patient (any change in status, diagnosis, or new treatments)? Wound education/assessment. Pt still has small open area to his coccyx. Amirah continues to be placed in the wound bed, and has shown progress. Was there any change in the disciplines caring for this patient (new PT, VICE PRESIDENT COMPLIANCE d/c)? No. SN continues. Any labs or [...] home care services. documented in this encounter [id number] Patient's home Progress note* Actions The pt's dressing and wound care had been completed earlier this morning. The pt is requesting that the dressing not be removed, and no picture taken as the wound is in a private area, and the pt has a visitor present at this time. The pt does not wish to interrupt the visit. documented in this encounter [id number] Telephone encounter Note* Telephone Encounter - Dee [...] We will see you December 06.Janae Gonzalez [id number] Miscellaneous Notes* Telephone Encounter - Dee Winston [...] you December 06.Janae Gonzalez documented in this [id number] Patient's home Progress note* Actions The pt's dressing and wound care had been completed earlier this morning. The pt is requesting that the dressing not be removed, and no picture taken as the wound is in a private area, and the pt has a visitor present at this time. The pt does not wish to interrupt the visit. documented in this encounter [id number] Note* Addendum Note - Froy Mason CRNA - 10/14/2022 3:49 PM EDT Addendum created 10/14/22 154 by Froy Mason CRNA Clinical Note Signed, Intraprocedure Blocks edited [id number] Miscellaneous Notes* Addendum Note - Froy Mason CRNA - 10/14/2022 3:49 PM EDT Addendum created 10/14/22 154 by Froy Mason CRNA Clinical Note Signed, Intraprocedure Blocks edited documented in this [id number] Patient's home Progress note* Actions The pt stands at his rollato r when his wound care is performed. Today, the picture was taken, as it was last week, with the [employer] catracho. the phone was then set down, [...] the face page of the pt on [email or web address] was visible. the photo was lost. Measurements recorded. documented in this encounter [id number] Miscellaneous Notes* Home Health - Amparo Goel LPN - 08/18/2022 2:54 PM EDT Missed Visit. Patient did not want a visit. today. documented in this [id number] Patient's home Note* Home Health - Amparo Goel LPN - 08/18/2022 2:54 PM EDT Missed Visit. Patient did not want a visit. today. [id number] Telephone encounter Note* Telephone Encounter - Lima Beasley TECHNOLOGIST - 07/26/2022 9:00 AM EDT Amiodarone 200mg was DC'd [id number] Miscellaneous Notes* Telephone Encounter - Lima Beasley TECHNOLOGIST - 07/26/2022 9:00 AM EDT Amiodarone 200mg was DC'd documented in this [id number] Patient's home Progress note* Narratives Pt and spouse agreeable to d ischarge today. Pt reports attempts compliance with HEP daily, and is trying to walk more. Pt mowed his yard yesterday on the riding mower. documented in this encounter [id number] Evaluation + Plan note* Assessment & Plan Note - Lenin Ramirez MD - 05/31/2022 12:12 PM EDTAssociated Problem(s): Chronic systolic congestive heart failure (HCC) His recent echocardiogram read demonstrated significant LV dysfunction with an ejection fraction approximate 25 to 30%. Fortunately he has no overt signs or symptoms of heart failure on his current regimen. No changes were made today. [id number] Evaluation + Plan note* Assessment & Plan Note - Lenin Ramirez MD - 05/31/2022 12:12 PM EDTAssociated Problem(s): Essential hypertension His blood pressure which had been quite labile because of his hemodialysis, has been reasonably well controlled on his current regimen with no significant highs or lows. I made no changes today. [id number] Miscellaneous Notes* Assessment & Plan Note - [...] EDT Associated Problem(s): Coronary artery disease involving mentasta coronary artery of mentasta heart without angina pectoris Given the extensive nature of this gentlemen's disease he is actually doing quite well now several years post CABG. He has no ischemic symptoms and remains relatively functional given all his other issues. No changes were made in his antianginal therapy. documented in this [id number] Evaluation + Plan note* Assessment & Plan Note - Lenin Ramirez MD - 05/31/2022 12:11 PM EDT Associated Problem(s): Coronary artery disease involving mentasta coronary artery of mentasta heart without angina pectoris Given the extensive nature of this gentlemen's disease he is actually doing quite well now several years post CABG. He has no ischemic symptoms and remains relatively functional given all his other issues. No changes were made in his antianginal therapy. [id number] History of Present illness Narrative* Lenin Ramirez [...] standpoint. He is scheduled to see his youth care worker soon and I reiterated the importance of [...] 25 tablet, Rfl: 4 OXYGEN-AIR DELIVERY SYSTEMS [facility], Administer 3 L into one nostril as [...] Rfl: 3 Assessment/Plan: Coronary artery disease involving mentasta coronary artery of mentasta heart without angina pectoris Given the extensive [...] changes were made today. documented in this [id number] Patient's home Progress note* Narratives 76 yo male referred to [facility] services following hospitalization from 04/26/22-04/30/22 for R colon cancer and is s/p hemicolectomy on 04/26/22. Pt is on continuous O2 with BiPAP. 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 All questions answered, contact information provided for future questions/concerns. documented in this encounter [id number] Anesthesiology Postoperative evaluation and management note * Anesthesia Postprocedure Evaluation - Juan Mccallum MD - 04/26/2022 12:00 PM EST Anesthesia Post Evaluation * * Refer to nursing documentation for PACU vitals * * Patient participation: patient participated Mental status: sleepy but conscious Pain management: adequate Anesthetic complications: no Nausea / vomiting: no Respiratory / airway status: nasal cannula Postoperative hydration: hemodynamically stable [facility] Work Phone: [phone]) 861-676902-14-2023 Surgical operation note* Anesthesia Postprocedure Evaluation - [...] Comment: 11/09/2021 7:47 AM Patient Status: Outpatient Media Assistant: Zenia Randolph, ISIDORO, RVT Exam Type: ECHOCARDIOGRAM LIMITED WITH CONTRAST Study Info Indications - Re-assess LV function I50.22 - Chronic systolic (congestive) heart failure Referring Physician: LENIN RAMIREZ ; [id number] BMI: 29.91 kg/m2 Summary 1. Limited Empty [...] anemia Other Positive: cancer documented in this [id number] Procedure anesthesia Narrative * Procedure Summary Procedure [...] 05/01/22; 4x4, tegaderm 08/12/21 1356 by Klaudia oSsa RN 05/01/22 0000 by Melida Cook RN [...] Андрей Claros RN documented in this encounter [id number] Anesthesiology procedure note* Anesthesia Procedure Notes - Froy Mason CRNA - 04/26/2022 10:19 AM ESTAssociated Order(s): NG/OG Tube NG/OG Tube Tube type: orogastric Tube size: 18 Fr Tube location: mouth Placement verification: suction return *See MAR for medication administration [facility] Work Phone: [phone]) 615-413002-14-2023 Anesthesiology procedure note* Anesthesia Procedure Notes - [...] medic student *See MAR for medication administration [id number] Anesthesiology Preoperative evaluation and management note * [...] Comment: 11/09/2021 7:47 AM Patient Status: Outpatient Media Assistant: Zenia Randolph, VINICIUSCS, RVT Exam Type: ECHOCARDIOGRAM LIMITED WITH CONTRAST Study Info Indications - Re-assess LV function I50.22 - Chronic systolic (congestive) heart failure Referring Physician: LENIN RAMIREZ ; [id number] BMI: 29.91 kg/m2 Summary 1. Limited Empty [...] / Musculoskeletal Positive: anemia Other Positive: cancer [id number] History of Present illness Narrative* Sherry George DO - 04/06/2022 8:39 AM EST NEW PATIENT -- CECAL MASS This is a 76 y/o male who presents to office at the request of Dr. Pizano, surgeon at [facility], for evaluation and treatment of a [...] albuminuria creatinine ratio less than 30 mg/g ([facility]) COPD, severe ([facility]) 03/2018 Coronary artery disease FSGS (focal segmental glomerulosclerosis) Hyperlipidemia Hypertension MRSA (methicillin resistant Staphylococcus aureus) UNKNOWN Myocardial infarction ([facility]) NYHA class 4 heart failure with reduced ejection fraction ([facility]) LVEF 30% MARCELO on CPAP 2018 Pneumonia Sepsis ([facility]) Current Outpatient Medications: acetaminophen (TYLENOL) 325 MG [...] BYPASS GRAFT; Surgeon: Mil Dee MD; Location: [facility] Main OR; Service: Cardiothoracic CARDIAC CATHETERIZATION N/A 08/11/2014 Procedure: Left Heart Cath Possible PTCA/Stent; Surgeon: Lenin Ramirez MD; Location: [facility] [place]; Service: CARDIAC CATHETERIZATION Right 12/31/2014 Procedure: Left Heart Cath Possible PTCA/Stent; Surgeon: Ranulfo Cobb MD; Location: [facility] [place]; Service: CARDIAC CATHETERIZATION 08/11/2014 EF: 55% CARDIAC [...] CATHETER PLACEMENT; Surgeon: Jalil Sparks MD; Location: [facility] HYBRID OR; Service: Cardiothoracic INSERTION PLEURAL CATHETER Left 01/19/2021 Procedure: LEFT PLEUR X CATHETER PLACEMENT; Surgeon: Jalil Sparks MD; Location: [facility] Main OR; Service: Cardiothoracic INTERVENTIONAL RADIOLOGY PROCEDURE 08/27/2020 IR THORACENTESIS LT 08/27/2020 Jesus Choudhary MD [facility] INTERVENTION RAD INTERVENTIONAL RADIOLOGY PROCEDURE 08/27/2020 IR THORACENTESIS RT 08/27/2020 Jesus Choudhary MD [facility] INTERVENTION RAD INTERVENTIONAL RADIOLOGY PROCEDURE 10/27/2020 IR THORACENTESIS LT 10/27/2020 Varun Kathleen MD [facility] INTERVENTION RAD INTERVENTIONAL RADIOLOGY PROCEDURE 10/27/2020 IR THORACENTESIS RT 10/27/2020 Varun Kathleen MD [facility] INTERVENTION RAD JOINT REPLACEMENT knee replacement KNEE SURGERY REMOVAL PLEURAL CATHETER Bilateral 08/12/2021 Procedure: BILATERAL PLEURAL CATHETERS REMOVAL; Surgeon: Jalil Sparks MD; Location: [facility] Main OR; Service: Cardiothoracic RENAL BIOPSY TONSILLECTOMY [...] ascending colon (HCC) Coronary artery disease involving mentasta coronary artery of mentasta heart without angina pectoris S/P CABG (coronary [...] medical and cardiac clearance documented in this [id number] History of Present illness Narrative* Christina Hanley RN - 12/15/2021 3:23 PM EDT Referral received from [facility] today--Call received from [facility] to see if [facility] could accept. Katt at [facility] at this time, advised [facility] could not accept documented in this [id number] Note* Addendum Note - Rachel Strange MA - 09/01/2021 1:56 PM EDTAddended by: RACHEL STRANGE on: 09/01/2021 01:56 PM Modules accepted: Orders [id number] Note* Addendum Note - Rachel Strange MA - 09/01/2021 1:56 PM EDTAddended by: RACHEL STRANGE on: 09/01/2021 01:56 PM Modules accepted: Orders [id number] Miscellaneous Notes* Addendum Note - Rachel Strange [...] as well. Called pharmacy and spoke to MR Presta and she ran the voucher card it covered the 2.5 mg for 2 weeks. Will mail the patient 5 mg samples to cover the other 2 weeks. Called and spoke to patient's and explained the above. She was very thankful. Verquvo 5 mg every day Qty 14 Lot- [id number] EXP-04/15/2022 * Telephone Encounter - Lenin Ramirez [...] assured me they have a very generous' Critical Care Technician program. * Telephone Encounter - Rachel Strange MA - 09/01/2021 12:27 PM EDT Once rx is sent and signed, I will call pharmacy and check roque. I also reached out to the rep, will wait to hear a response regarding assistance with the drug. Samples are available of this drug though at [facility], if needed. * Telephone Encounter - [...] increase to5 mg daily. documented in this [id number] Miscellaneous Notes* Addendum Note - Rachel Strange MA - 09/01/2021 1:56 PM EDTAddended by: RACHEL STRANGE on: 09/01/2021 01:56 PM Modules accepted: Orders * Telephone Encounter - Rachel Strange MA - 09/01/2021 1:20 PM EDT Yes, of course. Called and spoke to MR Presta to get a copay for the med and it will require a PA first.I will work on PA once it comes through fax. Rep stopped by and gave me free 30 day voucher cards, which covers the 2.5 mg for 2 weeks and 5 mg for 2 weeks as well. Called pharmacy and spoke to MR Presta and she ran the voucher card it covered the 2.5 mg for 2 weeks. Will mail the patient 5 mg samples to cover the other 2 weeks. Called and spoke to patient's and explained the above. She was very thankful. Verquvo 5 mg every day Qty 14 Lot- [id number] EXP-04/15/2022 * Telephone Encounter - Lenin Ramirez [...] assured me they have a very generous' Critical Care Technician program. * Telephone Encounter - Rachel Strange MA - 09/01/2021 12:27 PM EDT Once rx is sent and signed, I will call pharmacy and check roque. I also reached out to the rep, will wait to hear a response regarding assistance with the drug. Samples are available of this drug though at [facility], if needed. * Telephone Encounter - [...] increase to5 mg daily. documented in this [id number] Telephone encounter Note* Telephone Encounter - Rachel Strange MA - 09/01/2021 1:20 PM EDT Yes, of course. Called and spoke to MR Presta to get a copay for the med and it will require a PA first.I will work on PA once it comes through fax. Rep stopped by and gave me free 30 day voucher cards, which covers the 2.5 mg for 2 weeks and 5 mg for 2 weeks as well. Called pharmacy and spoke to MR Presta and she ran the voucher card it covered the 2.5 mg for 2 weeks. Will mail the patient 5 mg samples to cover the other 2 weeks. Called and spoke to patient's and explained the above. She was very thankful. Verquvo 5 mg every day Qty 14 Lot- [id number] EXP-04/15/2022 [id number] Telephone encounter Note* Telephone Encounter - Lenin Ramirez MD - 09/01/2021 1:03 PM EDT Thank you. Is there a chance we could send Ed 2 weeks of the 2.5 dose followed by 2 weeks of the 5.0 dose. If he tolerates that then we can work on the prescription. I did speak with the rep at the [facility] last week and he assured me they have a very generous' Critical Care Technician program. [id number] Miscellaneous Notes* Telephone Encounter - Lenin Ramirez MD - 09/01/2021 1:03 PM EDT Thank you. Is there a chance we could send Ed 2 weeks of the 2.5 dose followed by 2 weeks of the 5.0 dose. If he tolerates that then we can work on the prescription. I did speak with the rep at the [facility] last week and he assured me they have a very generous' Critical Care Technician program. * Telephone Encounter - Rachel Strange MA - 09/01/2021 12:27 PM EDT Once rx is sent and signed, I will call pharmacy and check roque. I also reached out to the rep, will wait to hear a response regarding assistance with the drug. Samples are available of this drug though at [facility], if needed. * Telephone Encounter - [...] increase to5 mg daily. documented in this [id number] Telephone encounter Note* Telephone Encounter - Rachel Strange MA - 09/01/2021 12:27 PM EDT Once rx is sent and signed, I will call pharmacy and check roque. I also reached out to the rep, will wait to hear a response regarding assistance with the drug. Samples are available of this drug though at [facility], if needed. [id number] Telephone encounter Note* Telephone Encounter - Dee [...] 2 weeks then increase to5 mg daily. [id number] Patient's home Progress note* Actions Call made [...] or his . documented in this encounter [id number] Evaluation + Plan note* Assessment & Plan Note - Lenin Ramirez MD - 08/17/2021 12:40 PM EDTAssociated Problem(s): Essential hypertension His blood pressure is excellent on his current regimen. I made no changes today. [id number] Evaluation + Plan note* Assessment & Plan Note - Lenin Ramirez MD - 08/17/2021 12:40 PM EDTAssociated Problem(s): Coronary artery disease involving mentasta coronary artery of mentasta heart without angina pectoris He has no ischemic changes on his EKG and no ischemic symptoms. [id number] Miscellaneous Notes* Assessment & Plan Note - Lenin Ramirez MD - 08/17/2021 12:40 PM EDTAssociated Problem(s): Essential hypertension His blood pressure is excellent on his current regimen. I made no changes today. * Assessment & Plan Note - Lenin Ramirez MD - 08/17/2021 12:40 PM EDT Associated Problem(s): Coronary artery disease involving mentasta coronary artery of mentasta heart without angina pectoris He has no [...] candidate for device implantation. documented in this [id number] Evaluation + Plan note* Assessment & Plan [...] may be a candidate for device implantation. [id number] History of Present illness Narrative* Lenin Ramirez [...] rhythm with sinus arrhythmia, possible old anterior RI, nonspecific T wave changes. Assessment/Plan: Chronic systolic [...] for device implantation. Coronary artery disease involving mentasta coronary artery of mentasta heart without angina pectoris He has no ischemic changes on his EKG and no ischemic symptoms. Essential hypertension His blood pressure is excellent on his current regimen. I made no changes today. documented in this [id number] Patient's home Progress note* Actions Pt had his pleurex drains re moved last week. Sites are CDI open to air. Pt was started on new medication to assist with sleep and some restless leg problems he has been having at night. [facility] plan is to make 2 more visits over the next 2 weeks and then discharge. documented in this encounter [id number] History of Present illness Narrative* Niurka Santana PA-C - 08/03/2021 10:45 AM EDT Spoke to Mrs Gonzalez over the phone to review recent CT results for her and plan to remove both of his pleural catheters as they have not been putting out any drainage for quite some time. Tentative plan for next . She verbalized understanding and was agreeable. documented in this [id number] Patient's home Progress note* Actions Call placed [...] voicemail available for the nurse line. Only office communication professor Nilesh. Another call will be made tomorrow [...] his incentive spirometer. documented in this encounter [id number] Patient's home Progress note* Actions Pleurex catheters were not d rained today. The pt has a f/u appt with the surgeon in 2 days to discuss the possiblity of removing them d/t the drains not putting out any drainage over the last 3 weeks. documented in this encounter [id number] Miscellaneous Notes* Telephone Encounter - Lima Beasley TECHNOLOGIST - 04/29/2021 2:34 PM EST Pt needs samples of Eliquis 5mg mailed to him documented in this [id number] History of Present illness Narrative* Jalil Sparks [...] albuminuria creatinine ratio less than 30 mg/g ([facility]) COPD, severe ([facility]) 03/2018 Coronary artery disease FSGS (focal segmental glomerulosclerosis) Hyperlipidemia Hypertension Myocardial infarction ([facility]) NYHA class 4 heart failure with reduced ejection fraction ([facility]) LVEF 30% MARCELO on CPAP 2018 Past Surgical History: Procedure Laterality Date CABG N/A 09/03/2020 Procedure: CORONARY ARTERY BYPASS GRAFT; Surgeon: Mil Dee MD; Location: [facility] Main OR; Service: Cardiothoracic CARDIAC CATHETERIZATION N/A 08/11/2014 Procedure: Left Heart Cath Possible PTCA/Stent; Surgeon: Lenin Ramirez MD; Location: [facility] [place]; Service: CARDIAC CATHETERIZATION Right 12/31/2014 Procedure: Left Heart Cath Possible PTCA/Stent; Surgeon: Ranulfo Cobb MD; Location: [facility] [place]; Service: CARDIAC CATHETERIZATION 08/11/2014 EF: 55% CARDIAC [...] CATHETER PLACEMENT; Surgeon: Jalil Sparks MD; Location: [facility] HYBRID OR; Service: Cardiothoracic INSERTION PLEURAL CATHETER Left 01/19/2021 Procedure: LEFT PLEUR X CATHETER PLACEMENT; Surgeon: Jalil Sparks MD; Location: [facility] Main OR; Service: Cardiothoracic INTERVENTIONAL RADIOLOGY PROCEDURE 08/27/2020 IR THORACENTESIS LT 08/27/2020 Jesus Choudhary MD [facility] INTERVENTION RAD INTERVENTIONAL RADIOLOGY PROCEDURE 08/27/2020 IR THORACENTESIS RT 08/27/2020 Jesus Choudhary MD [facility] INTERVENTION RAD INTERVENTIONAL RADIOLOGY PROCEDURE 10/27/2020 IR THORACENTESIS LT 10/27/2020 Varun Kathleen MD [facility] INTERVENTION RAD INTERVENTIONAL RADIOLOGY PROCEDURE 10/27/2020 IR THORACENTESIS RT 10/27/2020 Varun Kathleen MD [facility] INTERVENTION RAD JOINT REPLACEMENT knee replacement KNEE [...] [facility] [address], [address] [place] [address] Office: [phone] [email or web address] documented in this [id number] History of Present illness Narrative* Niurka Santana [...] can contact our office. documented in this [id number] Miscellaneous Notes* Addendum Note - Erick Devi MD - 01/18/2021 12:11 PM EST Addendum created 01/18/21 1211 by Erick Devi MD Attestation recorded in Intraprocedure, Intraprocedure Attestations filed documented in this [id number] Procedure anesthesia Narrative * Procedure Summary Procedure [...] Radha Lopez RN documented in this encounter [id number] Surgical operation note* Anesthesia Postprocedure Evaluation - [...] COPD sleep apnea Cardiovascular Positive: hypertension past RI, CAD, CABG/stent, dysrhythmias (VTACH, PAF) CHF, hyperlipidemia, cardiomyopathy pulmonary hypertension Gastrointestinal / Hepatic / Renal Positive: renal disease and CRI Endocrine / Musculoskeletal Positive: anemia documented in this [id number] History of Present illness Narrative* Jalil Sparks [...] 2 (two) times a day [facility] [id number] [facility] [id number] [facility] 1016 [place] [id number] . ASCORBATE CALCIUM (VITAMIN C ORAL) Take [...] albuminuria creatinine ratio less than 30 mg/g ([facility]) COPD, severe ([facility]) 03/2018 Coronary artery disease FSGS (focal segmental glomerulosclerosis) Hyperlipidemia Hypertension Myocardial infarction ([facility]) 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) LVEF 30% MARCELO on CPAP 2018 Past Surgical History: Procedure Laterality Date CABG N/A 09/03/2020 Procedure: CORONARY ARTERY BYPASS GRAFT; Surgeon: Mil Dee MD; Location: [facility] Main OR; Service: Cardiothoracic CARDIAC CATHETERIZATION N/A 08/11/2014 Procedure: Left Heart Cath Possible PTCA/Stent; Surgeon: Lenin Ramirez MD; Location: [facility] [place]; Service: CARDIAC CATHETERIZATION Right 12/31/2014 Procedure: Left Heart Cath Possible PTCA/Stent; Surgeon: Ranulfo Cobb MD; Location: [facility] [place]; Service: CARDIAC CATHETERIZATION 08/11/2014 EF: 55% CARDIAC [...] IR THORACENTESIS LT 08/27/2020 Jesus Choudhary MD [facility] INTERVENTION RAD INTERVENTIONAL RADIOLOGY PROCEDURE 08/27/2020 IR THORACENTESIS RT 08/27/2020 Jesus Choudhary MD [facility] INTERVENTION RAD INTERVENTIONAL RADIOLOGY PROCEDURE 10/27/2020 IR THORACENTESIS LT 10/27/2020 Varun Kathleen MD [facility] INTERVENTION RAD INTERVENTIONAL RADIOLOGY PROCEDURE 10/27/2020 IR THORACENTESIS RT 10/27/2020 Varun Kathleen MD [facility] INTERVENTION RAD JOINT REPLACEMENT knee replacement KNEE [...] Friends and Family: Not on file Attends Church Services: Not on file Active Member of [...] [facility] [address], [address] [place] [address] Office: [phone] [email or web address] documented in this [id number] Miscellaneous Notes* Assessment & Plan Note - Park Hawk CNP - 01/04/2021 4:35 PM EDT Associated Problem(s): Chronic systolic congestive heart failure (HCC) Ed continues to have ongoing issues with fluid overload. He had a right thoracentesis on 1at [facility] with 550 mL removed. He has had increasing dyspnea on exertion over the past week and had a chest x- ray on 01/01/2021. He was notified today that the pleural effusions. [facility] contacted and Ed will have a [...] 2 months of placement. documented in this [id number] History of Present illness Narrative* Park Hawk CNP - 01/04/2021 4:28 PM EDT [facility] [address] [facility] [address] [facility] [id number] Assessment & Plan: Stage 4 chronic kidney disease (HCC) Ed has AV fistula constructed 12/14/2020. The wait time for beginning hemodialysis at some point after 2 months of placement. Chronic systolic congestive heart failure (HCC) Ed continues to have ongoing issues with fluid overload. He had a right thoracentesis on 12/25/2020t [facility] with 550 mL removed. He has had increasing dyspnea on exertion over the past week and had a chest x- ray on 01/01/2021. He was notified today that the pleural effusions. [facility] contacted and Ed will have a [...] office today for Follow-up (go over Xray [place] SOB/ - Booster? Dr Ramirez said not to last time he had the Moderna Restless legs per James possibly remove the AMIO Melationin did not work ) HPI: iMnh Gonzalez is here today as a result of him calling the office today stating that he was notified by his flooring professional's office that his pleural effusions were worse [...] albuminuria creatinine ratio less than 30 mg/g ([facility]) COPD, severe ([facility]) 03/2018 Coronary artery disease FSGS (focal segmental glomerulosclerosis) Hyperlipidemia Hypertension Myocardial infarction ([facility]) NYHA class 4 heart failure with reduced ejection fraction ([facility]) LVEF 30% MARCELO on CPAP 2018 Past Surgical History: Procedure Laterality Date CABG N/A 09/03/2020 Procedure: CORONARY ARTERY BYPASS GRAFT; Surgeon: Mil Dee MD; Location: [facility] Main OR; Service: Cardiothoracic CARDIAC CATHETERIZATION N/A 08/11/2014 Procedure: Left Heart Cath Possible PTCA/Stent; Surgeon: Lenin Ramirez MD; Location: [facility] [place]; Service: CARDIAC CATHETERIZATION Right 12/31/2014 Procedure: Left Heart Cath Possible PTCA/Stent; Surgeon: Ranulfo Cobb MD; Location: [facility] [place]; Service: CARDIAC CATHETERIZATION 08/11/2014 EF: 55% CARDIAC CATHETERIZATION 11/06/2006 EF: 45% CARDIAC CATHETERIZATION 08/09/2005 EF: 50% CARDIAC CATHETERIZATION 07/08/2005 EF: 45% CARDIAC CATHETERIZATION 12/31/2014 EF: 55% CORONARY ANGIOPLASTY WITH STENT PLACEMENT 08/09/2005 ON[facility]- CX, RCA CORONARY ANGIOPLASTY WITH STENT PLACEMENT 07/08/2005 NORM- RCA CORONARY STENT PLACEMENT FOOT SURGERY Right hemodialysis fistula graft placement 12/14/2020 INTERVENTIONAL RADIOLOGY PROCEDURE 08/27/2020 IR THORACENTESIS LT 08/27/2020 Jesus Choudhary MD [facility] INTERVENTION RAD INTERVENTIONAL RADIOLOGY PROCEDURE 08/27/2020 IR THORACENTESIS RT 08/27/2020 Jesus Choudhary MD [facility] INTERVENTION RAD INTERVENTIONAL RADIOLOGY PROCEDURE 10/27/2020 IR THORACENTESIS LT 10/27/2020 Varun Kathleen MD [facility] INTERVENTION RAD INTERVENTIONAL RADIOLOGY PROCEDURE 10/27/2020 IR THORACENTESIS RT 10/27/2020 Varun Kathleen MD [facility] INTERVENTION RAD JOINT REPLACEMENT knee replacement KNEE [...] 2 (two) times a day [facility] [id number] [facility] [id number] [facility] 1016 [place] [id number] . ASPIRIN ORAL Take 81 mg by [...] 5' 7 27 minutes spent with patient zoqx-le-ugwi Follow Up Ordered: Return for Appointment as scheduled in February with WASH TUB MACHINE OPERATOR in [place]. Park Hawk CNP * Demetrice Jain MA [...] patient is not nervous/anxious. documented in this [id number] Miscellaneous Notes* Assessment & Plan Note - [...] EDT Associated Problem(s): Coronary artery disease involving mentasta coronary artery of mentasta heart without angina pectoris From ischemic issue Ed is doing quite well with no recurrent angina or other associated symptoms. No changes were made in his medicines. documented in this [id number] History of Present illness Narrative* Lenin Ramirez [...] considering initiation of dialysis in [facility] several months. He has had no [...] 2 (two) times a day [facility] [id number] [facility] [id number] [facility] 1016 [place] [id number] . ASCORBATE CALCIUM (VITAMIN C ORAL) Take [...] tablets . Assessment/Plan: Coronary artery disease involving mentasta coronary artery of mentasta heart without angina pectoris From ischemic issue [...] of Systems Cardiovascular: Negative. documented in this [id number] Miscellaneous Notes* Assessment & Plan Note - Park Hawk CNP - 11/23/2020 2:37 PM EDT Associated Problem(s): Bilateral pleural effusion Ed has experienced bilateral, recurrent pleural effusions, requiring repeated thoracentesis X 3, starting in August. His most recent procedure was in [place] on 11/11/2020. Today he states he feels [...] not requiring supplemental O2 documented in this [id number] History of Present illness Narrative* Park Hawk CNP - 11/23/2020 1:49 PM EDT [facility] [address] [facility] [address] [facility] [id number] Assessment & Plan: MARCELO on CPAP Uses [...] August. His most recent procedure was in [place] on 11/11/2020. Today he states he feels [...] albuminuria creatinine ratio less than 30 mg/g ([facility]) COPD, severe ([facility]) 03/2018 Coronary artery disease FSGS (focal segmental glomerulosclerosis) Hyperlipidemia Hypertension Myocardial infarction ([facility]) NYHA class 4 heart failure with reduced ejection fraction ([facility]) LVEF 30% MARCELO on CPAP 2018 Past Surgical History: Procedure Laterality Date CABG N/A 09/03/2020 Procedure: CORONARY ARTERY BYPASS GRAFT; Surgeon: Mil Dee MD; Location: [facility] Main OR; Service: Cardiothoracic CARDIAC CATHETERIZATION N/A 08/11/2014 Procedure: Left Heart Cath Possible PTCA/Stent; Surgeon: Lenin Ramirez MD; Location: [facility] [place]; Service: CARDIAC CATHETERIZATION Right 12/31/2014 Procedure: Left Heart Cath Possible PTCA/Stent; Surgeon: Ranulfo Cobb MD; Location: [facility] [place]; Service: CARDIAC CATHETERIZATION 08/11/2014 EF: 55% CARDIAC CATHETERIZATION 11/06/2006 EF: 45% CARDIAC CATHETERIZATION 08/09/2005 EF: 50% CARDIAC CATHETERIZATION 07/08/2005 EF: 45% CARDIAC CATHETERIZATION 12/31/2014 EF: 55% CORONARY ANGIOPLASTY WITH STENT PLACEMENT 08/09/2005 NORM- CX, RCA CORONARY ANGIOPLASTY WITH STENT PLACEMENT 07/08/2005 NORM- RCA CORONARY STENT PLACEMENT FOOT SURGERY Right INTERVENTIONAL RADIOLOGY PROCEDURE 08/27/2020 IR THORACENTESIS LT 08/27/2020 Jesus Choudhary MD [facility] INTERVENTION RAD INTERVENTIONAL RADIOLOGY PROCEDURE 08/27/2020 IR THORACENTESIS RT 08/27/2020 Jesus Choudhary MD [facility] INTERVENTION RAD INTERVENTIONAL RADIOLOGY PROCEDURE 10/27/2020 IR THORACENTESIS LT 10/27/2020 Varun Kathleen MD [facility] INTERVENTION RAD INTERVENTIONAL RADIOLOGY PROCEDURE 10/27/2020 IR THORACENTESIS RT 10/27/2020 Varun Kathleen MD [facility] INTERVENTION RAD JOINT REPLACEMENT knee replacement KNEE [...] 2 (two) times a day [facility] [id number] [facility] [id number] [facility] [address] [place] [id number] . ASPIRIN ORAL Take 81 mg by [...] 5' 7 25 minutes spent with patient [id number] Follow Up Ordered: Return for As scheduled [...] patient is not nervous/anxious. documented in this [id number] Miscellaneous Notes* Assessment & Plan Note - [...] EDT Associated Problem(s): PAF (paroxysmal atrial fibrillation) ([facility]) ECG today continues to demonstrate atrial fibrillation [...] to needing supplemental O2. documented in this [id number] History of Present illness Narrative* Park Hawk CNP - 10/26/2020 8:25 AM EDT [facility] [address] [facility] [address] [facility] [id number] Assessment & Plan: MARCELO on CPAP Has [...] artery bypass graft) 09/03/[address] [facility]. He states he initially felt [...] albuminuria creatinine ratio less than 30 mg/g ([facility]) COPD, severe ([facility]) 03/2018 Coronary artery disease FSGS (focal segmental glomerulosclerosis) Hyperlipidemia Hypertension Myocardial infarction ([facility]) NYHA class 4 heart failure with reduced ejection fraction ([facility]) LVEF 30% MARCELO on CPAP 2018 Past Surgical History: Procedure Laterality Date CABG N/A 09/03/2020 Procedure: CORONARY ARTERY BYPASS GRAFT; Surgeon: Mil Dee MD; Location: [facility] Main OR; Service: Cardiothoracic CARDIAC CATHETERIZATION N/A 08/11/2014 Procedure: Left Heart Cath Possible PTCA/Stent; Surgeon: Lenin Ramirez MD; Location: [facility] [place]; Service: CARDIAC CATHETERIZATION Right 12/31/2014 Procedure: Left Heart Cath Possible PTCA/Stent; Surgeon: Ranulfo Cobb MD; Location: [facility] [place]; Service: CARDIAC CATHETERIZATION 08/11/2014 EF: 55% CARDIAC CATHETERIZATION 11/06/2006 EF: 45% CARDIAC CATHETERIZATION 08/09/2005 EF: 50% CARDIAC CATHETERIZATION 07/08/2005 EF: 45% CARDIAC CATHETERIZATION 12/31/2014 EF: 55% CORONARY ANGIOPLASTY WITH STENT PLACEMENT 08/09/2005 NORM- CX, RCA CORONARY ANGIOPLASTY WITH STENT PLACEMENT 07/08/2005 NORM- RCA CORONARY STENT PLACEMENT FOOT SURGERY Right INTERVENTIONAL RADIOLOGY PROCEDURE 08/27/2020 IR THORACENTESIS LT 08/27/2020 Jesus Choudhary MD [facility] INTERVENTION RAD INTERVENTIONAL RADIOLOGY PROCEDURE 08/27/2020 IR THORACENTESIS RT 08/27/2020 Jesus Choudhary MD [facility] INTERVENTION RAD JOINT REPLACEMENT knee replacement KNEE [...] 2 (two) times a day [facility] [id number] [facility] [id number] [facility] 101[address] [place] [id number] . ASCORBATE CALCIUM (VITAMIN C ORAL) Take [...] PVC noted. 30 minutes spent with patient [id number] Follow Up Ordered: Return for Appointment as [...] patient is not nervous/anxious. documented in this [id number] Instructions* Patient Instructions* Maritza Barron MA - 10/26/2020 8:00 AM EDT How to contact your Care Team: Park Hawk CNP In case of an emergency please call 911. REFILLS: When in need for refills please call your care team or the office at [phone]. Please include medication name, pharmacy name, and specify 30-day or 90-day supply. Please check with your pharmacy within 24 hours of request for your refill. You must follow up as directed to continue current refills. Thank you! documented in this [id number] History of Present illness Narrative* Mil Dee MD - 10/21/2020 8:44 AM EDT Dictation on: 10/21/2020 8:45 AM by: MIL DEE [[id number]] documented in this [id number] History of Present illness Narrative* Leonila Walls RN - 09/30/2020 9:18 AM EDT Heart Disease Management Nurse Progress Note [facility] OFFICE 09/30/20 Minh Gonzalez 1945 Congestive [...] 11/25/2020). Leonila Walls RN documented in this [id number] Instructions* Patient Instructions* Leonila Walls RN - 09/30/2020 8:44 AM EDT Recommendations for home daily weights with a reminder to call with weight gain > 3 pounds, increased shortness of breath, increase in swelling, getting tired faster, urinating less frquently, dizziness or lightheadedness. Call with questions or concerns documented in this [id number] History of Present illness Narrative* Pearl Noble PA-C - 09/16/2020 9:02 AM EDT Called and discussed labs and CXR with patient Instructed to follow up as soon as possible with Business Education Instructor He voiced understanding Had no complaints and stated wounds were healing nicely Was advised to call our office with any concerns documented in this [id number] Instructions* Patient Instructions* Leonila Walls RN - 08/03/2020 2:32 PM EDT Recommendations for home daily weights with a reminder to call with weight gain > 3 pounds, increased shortness of breath, increase in swelling, getting tired faster, urinating less frquently, dizziness or lightheadedness. Call with questions or concerns documented in this [id number] History of Present illness Narrative* Leonila Walls RN - 08/03/2020 2:11 PM EDT Heart Disease Management Nurse Progress Note [facility] OFFICE 08/03/20 Minh Gonzalez 1945 Congestive [...] file. Leonila Walls RN [facility] Diagnosis Shortness of breath- Primary Chronic [...] heart failure (HCC) Coronary artery disease involving mentasta coronary artery of mentasta heart without angina pectoris Essential hypertension Unspecified [...] failure (HCC)- Primary Coronary artery disease involving mentasta coronary artery of mentasta heart without angina pectoris Dyspnea on exertion Other dyspnea and respiratory abnormality Generalized weakness [facility] Coronary artery disease involving mentasta coronary artery of mentasta heart without angina pectoris- Primary Chronic systolic [...] of ascending colon Coronary artery disease involving mentasta coronary artery of mentasta heart without angina pectoris S/P CABG (coronary [...] [facility] Diagnosis Coronary artery disease involving mentasta coronary artery of mentasta heart without angina pectoris- Primary Chronic systolic [...] organism, unspecified whether acute organ dysfunction present ([facility]) [facility] Diagnosis Coronary artery disease involving mentasta coronary artery of mentasta heart without angina pectoris Chronic systolic congestive heart failure (HCC) Mixed hyperlipidemia PAF (paroxysmal atrial fibrillation) (HCC) Atrial fibrillation [facility] Diagnosis Elevated CEA- Primary Elevated carcinoembryonic antigen (CEA) Malignant neoplasm of ascending colon (HCC) Malignant neoplasm of ascending colon Cellulitis of right buttock documented in this encounter [facility] course Narrative No data available for this section [facility] Patient's home Plan of care note* Visit Details Visit Type -SN HH Routine Vi sit Discipline -Assisted Problems Problem Start Date Status Goals Interventions Wound Care and/or Skin Problems Disciplines: Assisted 01/20/2021 Active 1 goal linked to scheduled/documented intervention 1 goal intervention scheduled/documented in this visit Assess and Instruct Home Visit Disciplines: Assisted 01/20/2021 Active 1 goal linked to scheduled/documented intervention 4 goal interventions scheduled/documented in this visit Medication Management Disciplines: Assisted 01/20/2021 Active 1 goal linked to scheduled/documented intervention 1 goal intervention scheduled/documented in this visit Pain Management Disciplines: Assisted 01/20/2021 Active 1 goal linked to scheduled/documented [...] Management Goal:Pain Completed [facility]* Visit Details Visit Type -SN HH Routine Vi sit Discipline -Assisted Problems Problem Start Date Status Goals Interventions Wound Care and/or Skin Problems Disciplines: Assisted 01/20/2021 Active 1 goal linked to scheduled/documented intervention 1 goal intervention scheduled/documented in this visit Assess and Instruct Home Visit Disciplines: Assisted 01/20/2021 Active 1 goal linked to scheduled/documented intervention 4 goal interventions scheduled/documented in this visit Medication Management Disciplines: Assisted 01/20/2021 Active 1 goal linked to scheduled/documented intervention 1 goal intervention scheduled/documented in this visit Pain Management Disciplines: Assisted 01/20/2021 Active 1 goal linked to scheduled/documented [...] of care note* Visit Details Visit Type -[facility] [place] [facility] of Care Discipline -Assisted Problems Problem Start Date Status Goals Interventions Assess and Instruct Home Visit Disciplines: Assisted 01/20/2021 Active 1 goal linked to scheduled/documented intervention 4 goal interventions scheduled/documented in this visit Medication Management Disciplines: Assisted 01/20/2021 Active 1 goal linked to scheduled/documented intervention 1 goal intervention scheduled/documented in this visit Pain Management Disciplines: Assisted 01/20/2021 Active 1 goal linked to scheduled/documented [...] of care note* Visit Details Visit Type -[facility] [place] [facility] of Care Discipline -Assisted Problems Problem Start Date Status Goals Interventions Assess and Instruct Home Visit Disciplines: Assisted 01/20/2021 Active 1 goal linked to scheduled/documented intervention 4 goal interventions scheduled/documented in this visit Medication Management Disciplines: Assisted 01/20/2021 Active 1 goal linked to scheduled/documented intervention 1 goal intervention scheduled/documented in this visit Pain Management Disciplines: Assisted 01/20/2021 Active 1 goal linked to scheduled/documented [...] Type -SN HH Routine Vi sit Discipline -Assisted Problems Problem Start Date Status Goals Interventions Wound Care and/or Skin Problems Disciplines: Assisted 01/20/2021 Active 1 goal linked to scheduled/documented intervention 1 goal intervention scheduled/documented in this visit Assess and Instruct Home Visit Disciplines: Assisted 01/20/2021 Active 1 goal linked to scheduled/documented intervention 4 goal interventions scheduled/documented in this visit Medication Management Disciplines: Assisted 01/20/2021 Active 1 goal linked to scheduled/documented intervention 1 goal intervention scheduled/documented in this visit Pain Management Disciplines: Assisted 01/20/2021 Active 1 goal linked to scheduled/documented [...] Management Goal:Pain Completed documented [facility] this [facility] of care note* Visit Details Visit Type -[facility] Routine Vi sit Discipline -Assisted Problems Problem Start Date Status Goals Interventions Wound Care and/or Skin Problems Disciplines: Assisted 01/20/2021 Active 1 goal linked to scheduled/documented intervention 1 goal intervention scheduled/documented in this visit Assess and Instruct Home Visit Disciplines: Assisted 01/20/2021 Active 1 goal linked to scheduled/documented intervention 4 goal interventions scheduled/documented in this visit Medication Management Disciplines: Assisted 01/20/2021 Active 1 goal linked to scheduled/documented intervention 1 goal intervention scheduled/documented in this visit Pain Management Disciplines: Assisted 01/20/2021 Active 1 goal linked to scheduled/documented [...] Management Goal:Pain Completed documented in this encounter [facility] Plan of care note* Visit Details Visit Type -[facility] Routine Vi sit Discipline -Assisted Problems Problem Start Date Status Goals Interventions Wound Care and/or Skin Problems Disciplines: Assisted 01/20/2021 Active 1 goal linked to scheduled/documented intervention 1 goal intervention scheduled/documented in this visit Assess and Instruct Home Visit Disciplines: Assisted 01/20/2021 Active 1 goal linked to scheduled/documented intervention 4 goal interventions scheduled/documented in this visit Medication Management Disciplines: Assisted 01/20/2021 Active 1 goal linked to scheduled/documented intervention 1 goal intervention scheduled/documented in this visit Pain Management Disciplines: Assisted 01/20/2021 Active 1 goal linked to scheduled/documented [...] Management Goal:Pain Completed [facility]* Visit Details Visit Type -[facility] Routine Vi sit Discipline -Assisted Problems Problem Start Date Status Goals Interventions Wound Care and/or Skin Problems Disciplines: Assisted 01/20/2021 Active 1 goal linked to scheduled/documented intervention 1 goal intervention scheduled/documented in this visit Assess and Instruct Home Visit Disciplines: Assisted 01/20/2021 Active 1 goal linked to scheduled/documented intervention 4 goal interventions scheduled/documented in this visit Medication Management Disciplines: Assisted 01/20/2021 Active 1 goal linked to scheduled/documented intervention 1 goal intervention scheduled/documented in this visit Pain Management Disciplines: Assisted 01/20/2021 Active 1 goal linked to scheduled/documented [...] Management Goal:Pain Completed [facility] Visit Details Visit Type -[facility] [place] [facility] t of Care Discipline -Assisted Problems Problem Start Date Status Goals Interventions Assess and Instruct Home Visit Disciplines: Assisted 01/20/2021 Active 1 goal linked to scheduled/documented intervention 4 goal interventions scheduled/documented in this visit Medication Management Disciplines: Assisted 01/20/2021 Active 1 goal linked to scheduled/documented intervention 1 goal intervention scheduled/documented in this visit Pain Management Disciplines: Assisted 01/20/2021 Active 1 goal linked to scheduled/documented [...] Management Goal:Pain Scheduled [facility]* Visit Details Visit Type -SN HH Routine Vi sit Discipline -Assisted Problems Problem Start Date Status Goals Interventions Wound Care and/or Skin Problems Disciplines: Assisted 01/20/2021 Active 1 goal linked to scheduled/documented intervention 1 goal intervention scheduled/documented in this visit Assess and Instruct Home Visit Disciplines: Assisted 01/20/2021 Active 1 goal linked to scheduled/documented intervention 4 goal interventions scheduled/documented in this visit Medication Management Disciplines: Assisted 01/20/2021 Active 1 goal linked to scheduled/documented intervention 1 goal intervention scheduled/documented in this visit Pain Management Disciplines: Assisted 01/20/2021 Active 1 goal linked to scheduled/documented [...] Management Goal:Pain Completed documented in this encounter [facility] Plan of care note* Visit Details Visit Type -SN HH Routine Vi sit Discipline -Assisted Problems Problem Start Date Status Goals Interventions Assess and Instruct Home Visit Disciplines: Assisted 01/20/2021 Active 1 goal linked to scheduled/documented intervention 4 goal interventions scheduled/documented in this visit Medication Management Disciplines: Assisted 01/20/2021 Active 1 goal linked to scheduled/documented intervention 1 goal intervention scheduled/documented in this visit Pain Management Disciplines: Assisted 01/20/2021 Active 1 goal linked to scheduled/documented [...] Management Goal:Pain Completed [facility] Visit Details Visit Type -SN HH Routine Vi sit Discipline -Assisted Problems Problem Start Date Status Goals Interventions Wound Care and/or Skin Problems Disciplines: Assisted 01/20/2021 Active 1 goal linked to scheduled/documented intervention 1 goal intervention scheduled/documented in this visit Assess and Instruct Home Visit Disciplines: Assisted 01/20/2021 Active 1 goal linked to scheduled/documented intervention 4 goal interventions scheduled/documented in this visit Medication Management Disciplines: Assisted 01/20/2021 Active 1 goal linked to scheduled/documented intervention 1 goal intervention scheduled/documented in this visit Pain Management Disciplines: Assisted 01/20/2021 Active 1 goal linked to scheduled/documented [...] Management Goal:Pain Completed [facility]* Visit Details Visit Type -[facility] Routine Vi sit Discipline -Assisted Problems Problem Start Date Status Goals Interventions Wound Care and/or Skin Problems Disciplines: Assisted 01/20/2021 Active 1 goal linked to scheduled/documented intervention 1 goal intervention scheduled/documented in this visit Assess and Instruct Home Visit Disciplines: Assisted 01/20/2021 Active 1 goal linked to scheduled/documented intervention 4 goal interventions scheduled/documented in this visit Medication Management Disciplines: Assisted 01/20/2021 Active 1 goal linked to scheduled/documented intervention 1 goal intervention scheduled/documented in this visit Pain Management Disciplines: Assisted 01/20/2021 Active 1 goal linked to scheduled/documented [...] Management Goal:Pain Completed [facility]* Visit Details Visit Type -[facility] Routine Vi sit Discipline -Assisted Problems Problem Start Date Status Goals Interventions Wound Care and/or Skin Problems Disciplines: Assisted 01/20/2021 Active 1 goal linked to scheduled/documented intervention 1 goal intervention scheduled/documented in this visit Assess and Instruct Home Visit Disciplines: Assisted 01/20/2021 Active 1 goal linked to scheduled/documented intervention 4 goal interventions scheduled/documented in this visit Medication Management Disciplines: Assisted 01/20/2021 Active 1 goal linked to scheduled/documented intervention 1 goal intervention scheduled/documented in this visit Pain Management Disciplines: Assisted 01/20/2021 Active 1 goal linked to scheduled/documented [...] Management Goal:Pain Completed [facility]* Visit Details Visit Type -SN HH Routine Vi sit Discipline -Assisted Problems Problem Start Date Status Goals Interventions Wound Care and/or Skin Problems Disciplines: Assisted 01/20/2021 Active 1 goal linked to scheduled/documented intervention 1 goal intervention scheduled/documented in this visit Assess and Instruct Home Visit Disciplines: Assisted 01/20/2021 Active 1 goal linked to scheduled/documented intervention 4 goal interventions scheduled/documented in this visit Medication Management Disciplines: Assisted 01/20/2021 Active 1 goal linked to scheduled/documented intervention 1 goal intervention scheduled/documented in this visit Pain Management Disciplines: Assisted 01/20/2021 Active 1 goal linked to scheduled/documented [...] Type -SN HH Routine Vi sit Discipline -Assisted Problems Problem Start Date Status Goals Interventions Wound Care and/or Skin Problems Disciplines: Assisted 01/20/2021 Active 1 goal linked to scheduled/documented intervention 1 goal intervention scheduled/documented in this visit Assess and Instruct Home Visit Disciplines: Assisted 01/20/2021 Active 1 goal linked to scheduled/documented intervention 4 goal interventions scheduled/documented in this visit Medication Management Disciplines: Assisted 01/20/2021 Active 1 goal linked to scheduled/documented intervention 1 goal intervention scheduled/documented in this visit Pain Management Disciplines: Assisted 01/20/2021 Active 1 goal linked to scheduled/documented [...] Type -SN HH Routine Vi sit Discipline -Assisted Problems Problem Start Date Status Goals Interventions Wound Care and/or Skin Problems Disciplines: Assisted 01/20/2021 Active 1 goal linked to scheduled/documented intervention 1 goal intervention scheduled/documented in this visit Assess and Instruct Home Visit Disciplines: Assisted 01/20/2021 Active 1 goal linked to scheduled/documented intervention 4 goal interventions scheduled/documented in this visit Medication Management Disciplines: Assisted 01/20/2021 Active 1 goal linked to scheduled/documented intervention 1 goal intervention scheduled/documented in this visit Pain Management Disciplines: Assisted 01/20/2021 Active 1 goal linked to scheduled/documented [...] Management Goal:Pain Completed [facility]* Visit Details Visit Type -SN HH Routine Vi sit Discipline -Assisted Problems Problem Start Date Status Goals Interventions Assess and Instruct Home Visit Disciplines: Assisted 01/20/2021 Active 1 goal linked to scheduled/documented intervention 4 goal interventions scheduled/documented in this visit Medication Management Disciplines: Assisted 01/20/2021 Active 1 goal linked to scheduled/documented intervention 1 goal intervention scheduled/documented in this visit Pain Management Disciplines: Assisted 01/20/2021 Active 1 goal linked to scheduled/documented [...] Type -SN HH [place] Rece rt Discipline -Assisted Problems Problem Start Date Status Goals Interventions Wound Care and/or Skin Problems Disciplines: Assisted 01/20/2021 Active 1 goal linked to scheduled/documented intervention 1 goal intervention scheduled/documented in this visit Assess and Instruct Home Visit Disciplines: Assisted 01/20/2021 Active 1 goal linked to scheduled/documented intervention 4 goal interventions scheduled/documented in this visit Medication Management Disciplines: Assisted 01/20/2021 Active 1 goal linked to scheduled/documented intervention 1 goal intervention scheduled/documented in this visit Pain Management Disciplines: Assisted 01/20/2021 Active 1 goal linked to scheduled/documented [...] Management Goal:Pain [facility] Visit Details Visit Type -SN Missed Visit Discipline -Assisted Problems Problem Start Date Status Goals Interventions Assess and Instruct Home Visit Disciplines: Assisted 01/20/2021 Active 1 goal linked to scheduled/documented intervention 4 goal interventions scheduled/documented in this visit Medication Management Disciplines: Assisted 01/20/2021 Active 1 goal linked to scheduled/documented intervention 1 goal intervention scheduled/documented in this visit Pain Management Disciplines: Assisted 01/20/2021 Active 1 goal linked to scheduled/documented [...] Management Goal:Pain [facility]uled [facility] Visit Details Visit Type -SN HH Routine Vi sit Discipline -Assisted Problems Problem Start Date Status Goals Interventions Wound Care and/or Skin Problems Disciplines: Assisted 01/20/2021 Active 1 goal linked to scheduled/documented intervention 1 goal intervention scheduled/documented in this visit Assess and Instruct Home Visit Disciplines: Assisted 01/20/2021 Active 1 goal linked to scheduled/documented intervention 4 goal interventions scheduled/documented in this visit Medication Management Disciplines: Assisted 01/20/2021 Active 1 goal linked to scheduled/documented intervention 1 goal intervention scheduled/documented in this visit Pain Management Disciplines: Assisted 01/20/2021 Active 1 goal linked to scheduled/documented [...] Management Goal:Pain Completed [facility] Visit Details Visit Type -SN HH OASIS Rece rt Discipline -Assisted Problems Problem Start Date Status Goals Interventions Wound Care and/or Skin Problems Disciplines: Assisted 01/20/2021 Active 1 goal linked to scheduled/documented intervention 1 goal intervention scheduled/documented in this visit Assess and Instruct Home Visit Disciplines: Assisted 01/20/2021 Active 1 goal linked to scheduled/documented intervention 4 goal interventions scheduled/documented in this visit Medication Management Disciplines: Assisted 01/20/2021 Active 1 goal linked to scheduled/documented intervention 1 goal intervention scheduled/documented in this visit Pain Management Disciplines: Assisted 01/20/2021 Active 1 goal linked to scheduled/documented [...] Management Goal:Pain Completed [facility] Visit Details Visit Type -SN HH Routine Vi sit Discipline -Assisted Problems Problem Start Date Status Goals Interventions Wound Care and/or Skin Problems Disciplines: Assisted 01/20/2021 Active 1 goal linked to scheduled/documented intervention 1 goal intervention scheduled/documented in this visit Assess and Instruct Home Visit Disciplines: Assisted 01/20/2021 Active 1 goal linked to scheduled/documented intervention 4 goal interventions scheduled/documented in this visit Medication Management Disciplines: Assisted 01/20/2021 Active 1 goal linked to scheduled/documented intervention 1 goal intervention scheduled/documented in this visit Pain Management Disciplines: Assisted 01/20/2021 Active 1 goal linked to scheduled/documented [...] Type -SN HH Routine Vi sit Discipline -Assisted Problems Problem Start Date Status Goals Interventions Wound Care and/or Skin Problems Disciplines: Assisted 01/20/2021 Active 1 goal linked to scheduled/documented intervention 1 goal intervention scheduled/documented in this visit Assess and Instruct Home Visit Disciplines: Assisted 01/20/2021 Active 1 goal linked to scheduled/documented intervention 4 goal interventions scheduled/documented in this visit Medication Management Disciplines: Assisted 01/20/2021 Active 1 goal linked to scheduled/documented intervention 1 goal intervention scheduled/documented in this visit Pain Management Disciplines: Assisted 01/20/2021 Active 1 goal linked to scheduled/documented [...] Management Goal:Pain Completed [facility] Visit Details Visit Type -SN Missed Visit Discipline -Assisted Problems Problem Start Date Status Goals Interventions Assess and Instruct Home Visit Disciplines: Assisted 01/20/2021 Active 1 goal linked to scheduled/documented intervention 4 goal interventions scheduled/documented in this visit Medication Management Disciplines: Assisted 01/20/2021 Active 1 goal linked to scheduled/documented intervention 1 goal intervention scheduled/documented in this visit Pain Management Disciplines: Assisted 01/20/2021 Active 1 goal linked to scheduled/documented [...] Management Goal:Pain Scheduled [facility] Visit Details Visit Type -SN HH Routine Vi sit Discipline -Assisted Problems Problem Start Date Status Goals Interventions Wound Care and/or Skin Problems Disciplines: Assisted 01/20/2021 Active 1 goal linked to scheduled/documented intervention 1 goal intervention scheduled/documented in this visit Assess and Instruct Home Visit Disciplines: Assisted 01/20/2021 Active 1 goal linked to scheduled/documented intervention 4 goal interventions scheduled/documented in this visit Medication Management Disciplines: Assisted 01/20/2021 Active 1 goal linked to scheduled/documented intervention 1 goal intervention scheduled/documented in this visit Pain Management Disciplines: Assisted 01/20/2021 Active 1 goal linked to scheduled/documented [...] Management Goal:Pain Completed [facility] Visit Details Visit Type -SN HH Routine Vi sit Discipline -Assisted Problems Problem Start Date Status Goals Interventions Wound Care and/or Skin Problems Disciplines: Assisted 01/20/2021 Active 1 goal linked to scheduled/documented intervention 1 goal intervention scheduled/documented in this visit Assess and Instruct Home Visit Disciplines: Assisted 01/20/2021 Active 1 goal linked to scheduled/documented intervention 4 goal interventions scheduled/documented in this visit Medication Management Disciplines: Assisted 01/20/2021 Active 1 goal linked to scheduled/documented intervention 1 goal intervention scheduled/documented in this visit Pain Management Disciplines: Assisted 01/20/2021 Active 1 goal linked to scheduled/documented [...] Management Goal:Pain Completed [facility] Visit Details Visit Type -SN HH OASIS Rece rt Discipline -Assisted Problems Problem Start Date Status Goals Interventions Wound Care and/or Skin Problems Disciplines: Assisted 01/20/2021 Active 1 goal linked to scheduled/documented intervention 1 goal intervention scheduled/documented in this visit Assess and Instruct Home Visit Disciplines: Assisted 01/20/2021 Active 1 goal linked to scheduled/documented intervention 4 goal interventions scheduled/documented in this visit Medication Management Disciplines: Assisted 01/20/2021 Active 1 goal linked to scheduled/documented intervention 1 goal intervention scheduled/documented in this visit Pain Management Disciplines: Assisted 01/20/2021 Active 1 goal linked to scheduled/documented [...] Management Goal:Pain Completed [facility] Visit Details Visit Type -SN HH OASIS Rece rt Discipline -Assisted Problems Problem Start Date Status Goals Interventions Wound Care and/or Skin Problems Disciplines: Assisted 01/20/2021 Active 1 goal linked to scheduled/documented intervention 1 goal intervention scheduled/documented in this visit Assess and Instruct Home Visit Disciplines: Assisted 01/20/2021 Active 1 goal linked to scheduled/documented intervention 4 goal interventions scheduled/documented in this visit Medication Management Disciplines: Assisted 01/20/2021 Active 1 goal linked to scheduled/documented intervention 1 goal intervention scheduled/documented in this visit Pain Management Disciplines: Assisted 01/20/2021 Active 1 goal linked to scheduled/documented [...] Management Goal:Pain Completed [facility] Visit Details Visit Type -SN HH Routine Vi sit Discipline -Assisted Problems Problem Start Date Status Goals Interventions Wound Care and/or Skin Problems Disciplines: Assisted 01/20/2021 Active 1 goal linked to scheduled/documented intervention 1 goal intervention scheduled/documented in this visit Assess and Instruct Home Visit Disciplines: Assisted 01/20/2021 Active 1 goal linked to scheduled/documented intervention 4 goal interventions scheduled/documented in this visit Medication Management Disciplines: Assisted 01/20/2021 Active 1 goal linked to scheduled/documented intervention 1 goal intervention scheduled/documented in this visit Pain Management Disciplines: Assisted 01/20/2021 Active 1 goal linked to scheduled/documented [...] Management Goal:Pain Completed [facility] Visit Details Visit Type -SN HH Routine Vi sit Discipline -Assisted Problems Problem Start Date Status Goals Interventions Wound Care and/or Skin Problems Disciplines: Assisted 01/20/2021 Active 1 goal linked to scheduled/documented intervention 1 goal intervention scheduled/documented in this visit Assess and Instruct Home Visit Disciplines: Assisted 01/20/2021 Active 1 goal linked to scheduled/documented intervention 4 goal interventions scheduled/documented in this visit Medication Management Disciplines: Assisted 01/20/2021 Active 1 goal linked to scheduled/documented intervention 1 goal intervention scheduled/documented in this visit Pain Management Disciplines: Assisted 01/20/2021 Active 1 goal linked to scheduled/documented [...] Management Goal:Pain Completed [facility] Visit Details Visit Type -SN HH Routine Vi sit Discipline -Assisted Problems Problem Start Date Status Goals Interventions Wound Care and/or Skin Problems Disciplines: Assisted 01/20/2021 Active 1 goal linked to scheduled/documented intervention 1 goal intervention scheduled/documented in this visit Assess and Instruct Home Visit Disciplines: Assisted 01/20/2021 Active 1 goal linked to scheduled/documented intervention 4 goal interventions scheduled/documented in this visit Medication Management Disciplines: Assisted 01/20/2021 Active 1 goal linked to scheduled/documented intervention 1 goal intervention scheduled/documented in this visit Pain Management Disciplines: Assisted 01/20/2021 Active 1 goal linked to scheduled/documented [...] Management Goal:Pain Completed [facility] Visit Details Visit Type -SN HH Routine Vi sit Discipline -Assisted Problems Problem Start Date Status Goals Interventions Wound Care and/or Skin Problems Disciplines: Assisted 01/20/2021 Active 1 goal linked to scheduled/documented intervention 1 goal intervention scheduled/documented in this visit Assess and Instruct Home Visit Disciplines: Assisted 01/20/2021 Active 1 goal linked to scheduled/documented intervention 4 goal interventions scheduled/documented in this visit Medication Management Disciplines: Assisted 01/20/2021 Active 1 goal linked to scheduled/documented intervention 1 goal intervention scheduled/documented in this visit Pain Management Disciplines: Assisted 01/20/2021 Active 1 goal linked to scheduled/documented [...] Management Goal:Pain Completed [facility] Visit Details Visit Type -SN HH Routine Vi sit Discipline -Assisted Problems Problem Start Date Status Goals Interventions Wound Care and/or Skin Problems Disciplines: Assisted 01/20/2021 Active 1 goal linked to scheduled/documented intervention 1 goal intervention scheduled/documented in this visit Assess and Instruct Home Visit Disciplines: Assisted 01/20/2021 Active 1 goal linked to scheduled/documented intervention 4 goal interventions scheduled/documented in this visit Medication Management Disciplines: Assisted 01/20/2021 Active 1 goal linked to scheduled/documented intervention 1 goal intervention scheduled/documented in this visit Pain Management Disciplines: Assisted 01/20/2021 Active 1 goal linked to scheduled/documented [...] Management Goal:Pain Completed [facility] Visit Details Visit Type -SN HH Routine Vi sit Discipline -Assisted Problems Problem Start Date Status Goals Interventions Wound Care and/or Skin Problems Disciplines: Assisted 01/20/2021 Active 1 goal linked to scheduled/documented intervention 1 goal intervention scheduled/documented in this visit Assess and Instruct Home Visit Disciplines: Assisted 01/20/2021 Active 1 goal linked to scheduled/documented intervention 4 goal interventions scheduled/documented in this visit Medication Management Disciplines: Assisted 01/20/2021 Active 1 goal linked to scheduled/documented intervention 1 goal intervention scheduled/documented in this visit Pain Management Disciplines: Assisted 01/20/2021 Active 1 goal linked to scheduled/documented [...] Management Goal:Pain Completed [facility] Visit Details Visit Type -SN HH Routine Vi sit Discipline -Assisted Problems Problem Start Date Status Goals Interventions Wound Care and/or Skin Problems Disciplines: Assisted 01/20/2021 Active 1 goal linked to scheduled/documented intervention 1 goal intervention scheduled/documented in this visit Assess and Instruct Home Visit Disciplines: Assisted 01/20/2021 Active 1 goal linked to scheduled/documented intervention 4 goal interventions scheduled/documented in this visit Medication Management Disciplines: Assisted 01/20/2021 Active 1 goal linked to scheduled/documented intervention 1 goal intervention scheduled/documented in this visit Pain Management Disciplines: Assisted 01/20/2021 Active 1 goal linked to scheduled/documented [...] Management Goal:Pain Completed [facility] Visit Details Visit Type -SN HH OASIS Guerrero sfer Discipline -Assisted Problems Problem Start Date Status Goals Interventions Assess and Instruct Home Visit Disciplines: Assisted 01/20/2021 Active 1 goal linked to scheduled/documented intervention 4 goal interventions scheduled/documented in this visit Medication Management Disciplines: Assisted 01/20/2021 Active 1 goal linked to scheduled/documented intervention 1 goal intervention scheduled/documented in this visit Pain Management Disciplines: Assisted 01/20/2021 Active 1 goal linked to scheduled/documented [...] HH OASIS Resu mption of Care Discipline -Assisted Problems Problem Start Date Status Goals Interventions Wound Care and/or Skin Problems Disciplines: Assisted 01/20/2021 Active 1 goal linked to scheduled/documented intervention 1 goal intervention scheduled/documented in this visit Assess and Instruct Home Visit Disciplines: Assisted 01/20/2021 Active 1 goal linked to scheduled/documented intervention 4 goal interventions scheduled/documented in this visit Medication Management Disciplines: Assisted 01/20/2021 Active 1 goal linked to scheduled/documented intervention 1 goal intervention scheduled/documented in this visit Pain Management Disciplines: Assisted 01/20/2021 Active 1 goal linked to scheduled/documented [...] Management Goal:Pain Completed [facility] Visit Details Visit Type -SN HH OASIS Resu mption of Care Discipline -Assisted Problems Problem Start Date Status Goals Interventions Wound Care and/or Skin Problems Disciplines: Assisted 01/20/2021 Active 1 goal linked to scheduled/documented intervention 1 goal intervention scheduled/documented in this visit Assess and Instruct Home Visit Disciplines: Assisted 01/20/2021 Active 1 goal linked to scheduled/documented intervention 4 goal interventions scheduled/documented in this visit Medication Management Disciplines: Assisted 01/20/2021 Active 1 goal linked to scheduled/documented intervention 1 goal intervention scheduled/documented in this visit Pain Management Disciplines: Assisted 01/20/2021 Active 1 goal linked to scheduled/documented [...] Management Goal:Pain Completed [facility] Visit Details Visit Type -SN HH Routine Vi sit Discipline -Assisted Problems Problem Start Date Status Goals Interventions Wound Care and/or Skin Problems Disciplines: Assisted 01/20/2021 Active 1 goal linked to scheduled/documented intervention 1 goal intervention scheduled/documented in this visit Assess and Instruct Home Visit Disciplines: Assisted 01/20/2021 Active 1 goal linked to scheduled/documented intervention 4 goal interventions scheduled/documented in this visit Medication Management Disciplines: Assisted 01/20/2021 Active 1 goal linked to scheduled/documented intervention 1 goal intervention scheduled/documented in this visit Pain Management Disciplines: Assisted 01/20/2021 Active 1 goal linked to scheduled/documented [...] Management Goal:Pain Completed [facility] Visit Details Visit Type -SN HH OASIS Rece rt Discipline -Assisted Problems Problem Start Date Status Goals Interventions Assess and Instruct Home Visit Disciplines: Assisted 01/20/2021 Active 1 goal linked to scheduled/documented intervention 4 goal interventions scheduled/documented in this visit Medication Management Disciplines: Assisted 01/20/2021 Active 1 goal linked to scheduled/documented intervention 1 goal intervention scheduled/documented in this visit Pain Management Disciplines: Assisted 01/20/2021 Active 1 goal linked to scheduled/documented [...] Management Goal:Pain Scheduled [facility] Visit Details Visit Type -SN HH OASIS Rece rt Discipline -Assisted Problems Problem Start Date Status Goals Interventions Assess and Instruct Home Visit Disciplines: Assisted 01/20/2021 Active 1 goal linked to scheduled/documented intervention 4 goal interventions scheduled/documented in this visit Medication Management Disciplines: Assisted 01/20/2021 Active 1 goal linked to scheduled/documented intervention 1 goal intervention scheduled/documented in this visit Pain Management Disciplines: Assisted 01/20/2021 Active 1 goal linked to scheduled/documented [...] Management Goal:Pain Scheduled [facility] Visit Details Visit Type -SN HH OASIS Resu mption of Care Discipline -Assisted Problems Problem Start Date Status Goals Interventions Wound Care and/or Skin Problems Disciplines: Assisted 01/20/2021 Active 1 goal linked to scheduled/documented intervention 1 goal intervention scheduled/documented in this visit Assess and Instruct Home Visit Disciplines: Assisted 01/20/2021 Active 1 goal linked to scheduled/documented intervention 4 goal interventions scheduled/documented in this visit Medication Management Disciplines: Assisted 01/20/2021 Active 1 goal linked to scheduled/documented intervention 1 goal intervention scheduled/documented in this visit Pain Management Disciplines: Assisted 01/20/2021 Active 1 goal linked to scheduled/documented [...] Management Goal:Pain Completed [facility] Visit Details Visit Type -SN HH Routine Vi sit Discipline -Assisted Problems Problem Start Date Status Goals Interventions Wound Care and/or Skin Problems Disciplines: Assisted 01/20/2021 Active 1 goal linked to scheduled/documented intervention 1 goal intervention scheduled/documented in this visit Assess and Instruct Home Visit Disciplines: Assisted 01/20/2021 Active 1 goal linked to scheduled/documented intervention 4 goal interventions scheduled/documented in this visit Medication Management Disciplines: Assisted 01/20/2021 Active 1 goal linked to scheduled/documented intervention 1 goal intervention scheduled/documented in this visit Pain Management Disciplines: Assisted 01/20/2021 Active 1 goal linked to scheduled/documented [...] Management Goal:Pain Completed [facility] Visit Details Visit Type - HH Routine Vi sit Discipline -Assisted Problems Problem Start Date Status Goals Interventions Wound Care and/or Skin Problems Disciplines: Assisted 01/20/2021 Active 1 goal linked to scheduled/documented intervention 1 goal intervention scheduled/documented in this visit Assess and Instruct Home Visit Disciplines: Assisted 01/20/2021 Active 1 goal linked to scheduled/documented intervention 4 goal interventions scheduled/documented in this visit Medication Management Disciplines: Assisted 01/20/2021 Active 1 goal linked to scheduled/documented intervention 1 goal intervention scheduled/documented in this visit Pain Management Disciplines: Assisted 01/20/2021 Active 1 goal linked to scheduled/documented [...] Management Goal:Pain Completed [facility] Visit Details Visit Type -SN HH Routine Vi sit Discipline -Assisted Problems Problem Start Date Status Goals Interventions Wound Care and/or Skin Problems Disciplines: Assisted 01/20/2021 Active 1 goal linked to scheduled/documented intervention 1 goal intervention scheduled/documented in this visit Assess and Instruct Home Visit Disciplines: Assisted 01/20/2021 Active 1 goal linked to scheduled/documented intervention 4 goal interventions scheduled/documented in this visit Medication Management Disciplines: Assisted 01/20/2021 Active 1 goal linked to scheduled/documented intervention 1 goal intervention scheduled/documented in this visit Pain Management Disciplines: Assisted 01/20/2021 Active 1 goal linked to scheduled/documented [...] Management Goal:Pain Completed [facility] Visit Details Visit Type -SN HH Routine Vi sit Discipline -Assisted Problems Problem Start Date Status Goals Interventions Assess and Instruct Home Visit Disciplines: Assisted 01/20/2021 Active 1 goal linked to scheduled/documented intervention 4 goal interventions scheduled/documented in this visit Medication Management Disciplines: Assisted 01/20/2021 Active 1 goal linked to scheduled/documented intervention 1 goal intervention scheduled/documented in this visit Pain Management Disciplines: Assisted 01/20/2021 Active 1 goal linked to scheduled/documented [...] Management Goal:Pain Completed [facility] Visit Details Visit Type -SN HH Routine Vi sit Discipline -Assisted Problems Problem Start Date Status Goals Interventions Assess and Instruct Home Visit Disciplines: Assisted 01/20/2021 Active 1 goal linked to scheduled/documented intervention 4 goal interventions scheduled/documented in this visit Medication Management Disciplines: Assisted 01/20/2021 Active 1 goal linked to scheduled/documented intervention 1 goal intervention scheduled/documented in this visit Pain Management Disciplines: Assisted 01/20/2021 Active 1 goal linked to scheduled/documented [...] Management Goal:Pain Completed [facility] Visit Details Visit Type -R D INTERN Routine Visi t Discipline -Physical Therapy Problems [...] 95% of instruction. [facility] Visit Details Visit Type -R D INTERN Routine Visi t Discipline -Physical Therapy Problems [...] 95% of instruction. [facility] Visit Details Visit Type -SN HH Non-OASIS/ Discipline DC Discipline -Assisted Problems Problem Start Date Status Goals Interventions Assess and Instruct Home Visit Disciplines: Assisted 01/20/2021 Resolved on 09/07/2021 1 goal linked to scheduled/documented intervention 4 goal interventions scheduled/documented in this visit Medication Management Disciplines: Assisted 01/20/2021 Resolved on 09/07/2021 1 goal linked to scheduled/documented intervention 1 goal intervention scheduled/documented in this visit Pain Management Disciplines: Assisted 01/20/2021 Resolved on 09/07/2021 1 goal linked [...] Management Goal:Pain [facility]uled [facility] Visit Details Visit Type -R D INTERN Routine Visi t Discipline -Physical Therapy Problems [...] 90% of instruction. [facility] Visit Details Visit Type -R D INTERN Routine Visi t Discipline -Physical Therapy Problems [...] 90% of instruction. [facility] Visit Details Visit Type -R D INTERN Routine Visi t Discipline -Physical Therapy Problems [...] HH OASIS Star t of Care Discipline -Assisted Problems Problem Start Date Status Goals Interventions Assess and Instruct Home Visit Disciplines: Assisted 05/01/2022 Active 1 goal linked to scheduled/documented intervention 4 goal interventions scheduled/documented in this visit Medication Management Disciplines: Assisted 05/01/2022 Active 1 goal linked to scheduled/documented intervention 1 goal intervention scheduled/documented in this visit Pain Management Disciplines: Assisted 05/01/2022 Active 1 goal linked to scheduled/documented intervention 1 goal intervention scheduled/documented in this visit Wound Care and/or Skin Problems Disciplines: Assisted 05/01/2022 Active 1 goal linked to scheduled/documented intervention 1 goal intervention scheduled/documented in this visit Cardiac Disciplines: Assisted 05/01/2022 Active 2 goals linked to scheduled/documented interventions 2 goal interventions scheduled/documented in this visit Gastrointestinal Disciplines: Assisted 05/01/2022 Active 1 goal linked to scheduled/documented intervention 1 goal intervention scheduled/documented in this visit Respiratory Disciplines: Assisted 05/01/2022 Active 1 goal linked to scheduled/documented [...] 75% of instruction. [facility] Visit [...] may be best. [facility] Visit Details Visit Type -SN HH OASIS Star t of Care Discipline -Assisted Problems Problem Start Date Status Goals Interventions Assess and Instruct Home Visit Disciplines: Assisted 05/01/2022 Active 1 goal linked to scheduled/documented intervention 4 goal interventions scheduled/documented in this visit Medication Management Disciplines: Assisted 05/01/2022 Active 1 goal linked to scheduled/documented intervention 1 goal intervention scheduled/documented in this visit Pain Management Disciplines: Assisted 05/01/2022 Active 1 goal linked to scheduled/documented intervention 1 goal intervention scheduled/documented in this visit Wound Care and/or Skin Problems Disciplines: Assisted 05/01/2022 Active 1 goal linked to scheduled/documented intervention 1 goal intervention scheduled/documented in this visit Cardiac Disciplines: Assisted 05/01/2022 Active 2 goals linked to scheduled/documented interventions 2 goal interventions scheduled/documented in this visit Gastrointestinal Disciplines: Assisted 05/01/2022 Active 1 goal linked to scheduled/documented intervention 1 goal intervention scheduled/documented in this visit Respiratory Disciplines: Assisted 05/01/2022 Active 1 goal linked to scheduled/documented [...] 75% of instruction. 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 Pt [...] 90% of instruction. [facility] Visit Details Visit Type -SN HH Routine Vi sit Discipline -Assisted Problems Problem Start Date Status Goals Interventions Assess and Instruct Home Visit Disciplines: Assisted 05/01/2022 Active 1 goal linked to scheduled/documented intervention 4 goal interventions scheduled/documented in this visit Medication Management Disciplines: Assisted 05/01/2022 Active 1 goal linked to scheduled/documented intervention 1 goal intervention scheduled/documented in this visit Pain Management Disciplines: Assisted 05/01/2022 Active 1 goal linked to scheduled/documented intervention 1 goal intervention scheduled/documented in this visit Wound Care and/or Skin Problems Disciplines: Assisted 05/01/2022 Active 1 goal linked to scheduled/documented intervention 1 goal intervention scheduled/documented in this visit Cardiac Disciplines: Assisted 05/01/2022 Active 2 goals linked to scheduled/documented interventions 2 goal interventions scheduled/documented in this visit Gastrointestinal Disciplines: Assisted 05/01/2022 Active 1 goal linked to scheduled/documented intervention 1 goal intervention scheduled/documented in this visit Respiratory Disciplines: Assisted 05/01/2022 Active 1 goal linked to scheduled/documented [...] storage of oxygen. [facility] Visit Details [...] Care Plan Scheduled documented [facility] Visit Details Visit Type -SN HH OASIS Star t of Care Discipline -Assisted Problems Problem Start Date Status Goals Interventions Assess and Instruct Home Visit Disciplines: Assisted 05/01/2022 Active 1 goal linked to scheduled/documented intervention 4 goal interventions scheduled/documented in this visit Medication Management Disciplines: Assisted 05/01/2022 Active 1 goal linked to scheduled/documented intervention 1 goal intervention scheduled/documented in this visit Pain Management Disciplines: Assisted 05/01/2022 Active 1 goal linked to scheduled/documented intervention 1 goal intervention scheduled/documented in this visit Wound Care and/or Skin Problems Disciplines: Assisted 05/01/2022 Active 1 goal linked to scheduled/documented intervention 1 goal intervention scheduled/documented in this visit Cardiac Disciplines: Assisted 05/01/2022 Active 2 goals linked to scheduled/documented interventions 2 goal interventions scheduled/documented in this visit Gastrointestinal Disciplines: Assisted 05/01/2022 Active 1 goal linked to scheduled/documented intervention 1 goal intervention scheduled/documented in this visit Respiratory Disciplines: Assisted 05/01/2022 Active 1 goal linked to scheduled/documented [...] of care note* Visit Details Visit Type -R D INTERN Routine Visi t Discipline -Physical Therapy Problems [...] 100% of instruction. [facility] Visit Details Visit Type -SN HH Routine Vi sit Discipline -Assisted Problems Problem Start Date Status Goals Interventions Assess and Instruct Home Visit Disciplines: Assisted 05/01/2022 Active 1 goal linked to scheduled/documented intervention 4 goal interventions scheduled/documented in this visit Medication Management Disciplines: Assisted 05/01/2022 Active 1 goal linked to scheduled/documented intervention 1 goal intervention scheduled/documented in this visit Pain Management Disciplines: Assisted 05/01/2022 Active 1 goal linked to scheduled/documented intervention 1 goal intervention scheduled/documented in this visit Wound Care and/or Skin Problems Disciplines: Assisted 05/01/2022 Active 1 goal linked to scheduled/documented intervention 1 goal intervention scheduled/documented in this visit Cardiac Disciplines: Assisted 05/01/2022 Active 2 goals linked to scheduled/documented interventions 2 goal interventions scheduled/documented in this visit Gastrointestinal Disciplines: Assisted 05/01/2022 Active 1 goal linked to scheduled/documented intervention 1 goal intervention scheduled/documented in this visit Respiratory Disciplines: Assisted 05/01/2022 Active 1 goal linked to scheduled/documented intervention 1 goal intervention scheduled/documented in this visit Wound Care and/or Skin Problems Disciplines: Assisted 05/12/2022 Active 1 goal linked to scheduled/documented [...] pt tolerated well. 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 Pt [...] 90% of instruction. 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 [facility] Visit Details Visit Type -R D INTERN Routine Visi t Discipline -Physical Therapy Problems [...] 100% of instruction. [facility] Visit Details Visit Type -R D INTERN Routine Visi t Discipline -Physical Therapy Problems [...] 100% of instruction. [facility] Visit Details Visit Type -R D INTERN Routine Visi t Discipline -Physical Therapy Problems [...] safety precautions Skilled intervention at next visit: R D INTERN plan to continue transfer trianing for increased safety and reduce risk for falls. Home Exercise Program Problem:Home Exercise Program Goal:Home Exercise Program Completed Patient reports: fair compliance Clinician taught: patient Clinician instructed on: R D INTERN reviews standing HEP with patient. Patient demos fair recall with technique and reports fair compliance with exercise program. Patient/caregiver is able to teach back 80% of instruction. Patient with O2 donned during therex at 2L, SPO2 levels still dropped to 79% during standing therex, R D INTERN provides cues again for PLB techniques, fair carryover, SPO2 levels returned to 93%+ by end of session. patient left in chair with O2 donned with spouse present Instruct Mobility Problem:Mobility Goal:Mobility Completed Patient reports: no falls Clinician taught: patient Clinician instructed on: R D INTERN provides skilled instruct for pateint to compelte STS t/f from chair with R D INTERN CGA during for safety, max verbal cues for proper technique and safety awareness to avoid a fall, patient with one major LOB requiring Wendy from R D INTERN to prevent fall, skilled instruct for patient to complete stair training with CGA and use of grab bars, patient with poor safety awareness as noted by impulsivity, O2 tubing too short to reach garage, doffed tubing, constant cues to patient for proper breathing techniques. R D INTERN provides skilled instruct for patient to complete car transfer training with R D INTERN providing demo for maximum safety, implemented wooden step to increase safety, spouse present for traiing with both patient and spouse report understanding on use of wooden step to increase safety. patient continues to demo impulsivity with all transfers and mobility, constant cues to correct. upon return to sit in chair, SPO2 levels 68%, immediately donned O2 and R D INTERN instructed patient to compelte PLB techniques, cues to continue these until SPO@ levels returned to 94%, O2 on 2L for entire session. Patient/caregiver is able to teach back 80% of instruction. [facility] Visit Details Visit Type -SN HH Routine Vi sit Discipline -Assisted Problems Problem Start Date Status Goals Interventions Assess and Instruct Home Visit Disciplines: Assisted 05/01/2022 Active 1 goal linked to scheduled/documented intervention 4 goal interventions scheduled/documented in this visit Medication Management Disciplines: Assisted 05/01/2022 Active 1 goal linked to scheduled/documented intervention 1 goal intervention scheduled/documented in this visit Pain Management Disciplines: Assisted 05/01/2022 Active 1 goal linked to scheduled/documented intervention 1 goal intervention scheduled/documented in this visit Wound Care and/or Skin Problems Disciplines: Assisted 05/01/2022 Active 1 goal linked to scheduled/documented intervention 1 goal intervention scheduled/documented in this visit Cardiac Disciplines: Assisted 05/01/2022 Active 2 goals linked to scheduled/documented interventions 2 goal interventions scheduled/documented in this visit Gastrointestinal Disciplines: Assisted 05/01/2022 Active 1 goal linked to scheduled/documented intervention 1 goal intervention scheduled/documented in this visit Respiratory Disciplines: Assisted 05/01/2022 Active 1 goal linked to scheduled/documented intervention 1 goal intervention scheduled/documented in this visit Wound Care and/or Skin Problems Disciplines: Assisted 05/12/2022 Active 1 goal linked to scheduled/documented [...] of care note* Visit Details Visit Type -R D INTERN Routine Visi t Discipline -Physical Therapy Problems [...] safety precautions Skilled intervention at next visit: R D INTERN plan to continue transfer trianing for increased safety and reduce risk for falls. Home Exercise Program Problem:Home Exercise Program Goal:Home Exercise Program Completed Patient reports: fair compliance Clinician taught: patient Clinician instructed on: R D INTERN reviews standing HEP with patient. Patient demos fair recall with technique and reports fair compliance with exercise program. Patient/caregiver is able to teach back 80% of instruction. Patient with O2 donned during therex at 2L, SPO2 levels still dropped to 79% during standing therex, R D INTERN provides cues again for PLB techniques, fair carryover, SPO2 levels returned to 93%+ by end of session. patient left in chair with O2 donned with spouse present Instruct Mobility Problem:Mobility Goal:Mobility Completed Patient reports: no falls Clinician taught: patient Clinician instructed on: R D INTERN provides skilled instruct for pateint to compelte STS t/f from chair with R D INTERN CGA during for safety, max verbal cues for proper technique and safety awareness to avoid a fall, patient with one major LOB requiring Wendy from R D INTERN to prevent fall, skilled instruct for patient to complete stair training with CGA and use of grab bars, patient with poor safety awareness as noted by impulsivity, O2 tubing too short to reach garage, doffed tubing, constant cues to patient for proper breathing techniques. R D INTERN provides skilled instruct for patient to complete car transfer training with R D INTERN providing demo for maximum safety, implemented wooden step to increase safety, spouse present for traiing with both patient and spouse report understanding on use of wooden step to increase safety. patient continues to demo impulsivity with all transfers and mobility, constant cues to correct. upon return to sit in chair, SPO2 levels 68%, immediately donned O2 and R D INTERN instructed patient to compelte PLB techniques, cues to continue these until SPO@ levels returned to 94%, O2 on 2L for entire session. Patient/caregiver is able to teach back 80% of instruction. [facility] Visit Details Visit Type -R D INTERN Routine Visi t Discipline -Physical Therapy Problems [...] risk of falls. [facility] Visit Details Visit Type -SN HH Routine Vi sit Discipline -Assisted Problems Problem Start Date Status Goals Interventions Assess and Instruct Home Visit Disciplines: Assisted 05/01/2022 Active 1 goal linked to scheduled/documented intervention 4 goal interventions scheduled/documented in this visit Medication Management Disciplines: Assisted 05/01/2022 Active 1 goal linked to scheduled/documented intervention 1 goal intervention scheduled/documented in this visit Pain Management Disciplines: Assisted 05/01/2022 Active 1 goal linked to scheduled/documented intervention 1 goal intervention scheduled/documented in this visit Cardiac Disciplines: Assisted 05/01/2022 Active 2 goals linked to scheduled/documented interventions 2 goal interventions scheduled/documented in this visit Gastrointestinal Disciplines: Assisted 05/01/2022 Active 1 goal linked to scheduled/documented intervention 1 goal intervention scheduled/documented in this visit Respiratory Disciplines: Assisted 05/01/2022 Active 1 goal linked to scheduled/documented [...] storage of oxygen. [facility] Visit Details Visit Type -R D INTERN Routine Visi t Discipline -Physical Therapy Problems [...] Clinician instructed on: d/t patient back pain, R D INTERN provides skilled instruct for patient to complete seated HEP instead of standing HEP to reduce pain, completed to increase activity tolerance for safe return to PLOF. Patient/caregiver is able to teach back 80% of instruction. Instruct Mobility Problem:Mobility Goal:Mobility Completed Patient reports: no falls Clinician taught: patient Clinician instructed on: R D INTERN provides skilled instruct for patient to complete gait training with FWW and R D INTERN S during for safety, to increase activity tolerance, patient SPO2 levels 84% on 2L O2, cues for proper breathing techniques during seated rest break with SPO2 levels rising to 95%. Patient/caregiver is able to teach back 80% of instruction. [facility] Visit Details Visit Type -SN HH Routine Vi sit Discipline -Assisted Problems Problem Start Date Status Goals Interventions Assess and Instruct Home Visit Disciplines: Assisted 05/01/2022 Active 1 goal linked to scheduled/documented intervention 4 goal interventions scheduled/documented in this visit Medication Management Disciplines: Assisted 05/01/2022 Active 1 goal linked to scheduled/documented intervention 1 goal intervention scheduled/documented in this visit Pain Management Disciplines: Assisted 05/01/2022 Active 1 goal linked to scheduled/documented intervention 1 goal intervention scheduled/documented in this visit Cardiac Disciplines: Assisted 05/01/2022 Active 2 goals linked to scheduled/documented interventions 2 goal interventions scheduled/documented in this visit Gastrointestinal Disciplines: Assisted 05/01/2022 Active 1 goal linked to scheduled/documented intervention 1 goal intervention scheduled/documented in this visit Respiratory Disciplines: Assisted 05/01/2022 Active 1 goal linked to scheduled/documented intervention 1 goal intervention scheduled/documented in this visit Wound Care and/or Skin Problems Disciplines: Assisted 05/12/2022 Active 1 goal linked to scheduled/documented [...] barrier paste applied. [facility] Visit Details Visit Type -R D INTERN Routine Visi t Discipline -Physical Therapy Problems [...] Clinician instructed on: d/t patient back pain, R D INTERN provides skilled instruct for patient to complete seated HEP instead of standing HEP to reduce pain, completed to increase activity tolerance for safe return to PLOF. Patient/caregiver is able to teach back 80% of instruction. Instruct Mobility Problem:Mobility Goal:Mobility Completed Patient reports: no falls Clinician taught: patient Clinician instructed on: R D INTERN provides skilled instruct for patient to complete gait training with FWW and R D INTERN S during for safety, to increase activity tolerance, patient SPO2 levels 84% on 2L O2, cues for proper breathing techniques during seated rest break with SPO2 levels rising to 95%. Patient/caregiver is able to teach back 80% of instruction. [facility] Visit Details Visit Type -SN HH Routine Vi sit Discipline -Assisted Problems Problem Start Date Status Goals Interventions Assess and Instruct Home Visit Disciplines: Assisted 05/01/2022 Active 1 goal linked to scheduled/documented intervention 4 goal interventions scheduled/documented in this visit Medication Management Disciplines: Assisted 05/01/2022 Active 1 goal linked to scheduled/documented intervention 1 goal intervention scheduled/documented in this visit Pain Management Disciplines: Assisted 05/01/2022 Active 1 goal linked to scheduled/documented intervention 1 goal intervention scheduled/documented in this visit Cardiac Disciplines: Assisted 05/01/2022 Active 2 goals linked to scheduled/documented interventions 2 goal interventions scheduled/documented in this visit Gastrointestinal Disciplines: Assisted 05/01/2022 Active 1 goal linked to scheduled/documented intervention 1 goal intervention scheduled/documented in this visit Respiratory Disciplines: Assisted 05/01/2022 Active 1 goal linked to scheduled/documented intervention 1 goal intervention scheduled/documented in this visit Wound Care and/or Skin Problems Disciplines: Assisted 05/12/2022 Active 1 goal linked to scheduled/documented [...] barrier paste applied. [facility] Visit Details Visit Type -R D INTERN Routine Visi t Discipline -Physical Therapy Problems [...] of care note* Visit Details Visit Type -R D INTERN Routine Visi t Discipline -Physical Therapy Problems [...] 100% of instruction. [facility] Visit Details Visit Type -R D INTERN Routine Visi t Discipline -Physical Therapy Problems [...] 100% of instruction. [facility] Visit Details [...] Care Plan Scheduled documented [facility] Visit Details Visit Type -SN HH Routine Vi sit Discipline -Assisted Problems Problem Start Date Status Goals Interventions Assess and Instruct Home Visit Disciplines: Assisted 05/01/2022 Active 1 goal linked to scheduled/documented intervention 4 goal interventions scheduled/documented in this visit Medication Management Disciplines: Assisted 05/01/2022 Active 1 goal linked to scheduled/documented intervention 1 goal intervention scheduled/documented in this visit Pain Management Disciplines: Assisted 05/01/2022 Active 1 goal linked to scheduled/documented intervention 1 goal intervention scheduled/documented in this visit Cardiac Disciplines: Assisted 05/01/2022 Active 2 goals linked to scheduled/documented interventions 2 goal interventions scheduled/documented in this visit Gastrointestinal Disciplines: Assisted 05/01/2022 Active 1 goal linked to scheduled/documented intervention 1 goal intervention scheduled/documented in this visit Respiratory Disciplines: Assisted 05/01/2022 Active 1 goal linked to scheduled/documented intervention 1 goal intervention scheduled/documented in this visit Wound Care and/or Skin Problems Disciplines: Assisted 05/12/2022 Active 1 goal linked to scheduled/documented [...] states he understands. [facility] Visit Details Visit Type -R D INTERN Routine Visi t Discipline -Physical Therapy Problems [...] 100% of instruction. documented [facility] Visit Details Visit Type -SN HH OASIS Rece rt Discipline -Assisted Problems Problem Start Date Status Goals Interventions Assess and Instruct Home Visit Disciplines: Assisted 05/01/2022 Active 1 goal linked to scheduled/documented intervention 4 goal interventions scheduled/documented in this visit Medication Management Disciplines: Assisted 05/01/2022 Active 1 goal linked to scheduled/documented intervention 1 goal intervention scheduled/documented in this visit Pain Management Disciplines: Assisted 05/01/2022 Active 1 goal linked to scheduled/documented intervention 1 goal intervention scheduled/documented in this visit Respiratory Disciplines: Assisted 05/01/2022 Active 1 goal linked to scheduled/documented intervention 1 goal intervention scheduled/documented in this visit Wound Care and/or Skin Problems Disciplines: Assisted 05/12/2022 Active 1 goal linked to scheduled/documented [...] relief education reinforced. [facility] Visit Details Visit Type -SN HH OASIS Rece rt Discipline -Assisted Problems Problem Start Date Status Goals Interventions Assess and Instruct Home Visit Disciplines: Assisted 05/01/2022 Active 1 goal linked to scheduled/documented intervention 4 goal interventions scheduled/documented in this visit Medication Management Disciplines: Assisted 05/01/2022 Active 1 goal linked to scheduled/documented intervention 1 goal intervention scheduled/documented in this visit Pain Management Disciplines: Assisted 05/01/2022 Active 1 goal linked to scheduled/documented intervention 1 goal intervention scheduled/documented in this visit Respiratory Disciplines: Assisted 05/01/2022 Active 1 goal linked to scheduled/documented intervention 1 goal intervention scheduled/documented in this visit Wound Care and/or Skin Problems Disciplines: Assisted 05/12/2022 Active 1 goal linked to scheduled/documented [...] relief education reinforced. [facility] Visit Details Visit Type -SN HH Routine Vi sit Discipline -Assisted Problems Problem Start Date Status Goals Interventions Assess and Instruct Home Visit Disciplines: Assisted 05/01/2022 Active 1 goal linked to scheduled/documented intervention 4 goal interventions scheduled/documented in this visit Medication Management Disciplines: Assisted 05/01/2022 Active 1 goal linked to scheduled/documented intervention 1 goal intervention scheduled/documented in this visit Pain Management Disciplines: Assisted 05/01/2022 Active 1 goal linked to scheduled/documented intervention 1 goal intervention scheduled/documented in this visit Respiratory Disciplines: Assisted 05/01/2022 Active 1 goal linked to scheduled/documented intervention 1 goal intervention scheduled/documented in this visit Wound Care and/or Skin Problems Disciplines: Assisted 05/12/2022 Active 1 goal linked to scheduled/documented [...] Pt tolerated well. [facility] Visit Details Visit Type -SN HH Routine Vi sit Discipline -Assisted Problems Problem Start Date Status Goals Interventions Assess and Instruct Home Visit Disciplines: Assisted 05/01/2022 Active 1 goal linked to scheduled/documented intervention 4 goal interventions scheduled/documented in this visit Medication Management Disciplines: Assisted 05/01/2022 Active 1 goal linked to scheduled/documented intervention 1 goal intervention scheduled/documented in this visit Pain Management Disciplines: Assisted 05/01/2022 Active 1 goal linked to scheduled/documented intervention 1 goal intervention scheduled/documented in this visit Respiratory Disciplines: Assisted 05/01/2022 Active 1 goal linked to scheduled/documented intervention 1 goal intervention scheduled/documented in this visit Wound Care and/or Skin Problems Disciplines: Assisted 05/12/2022 Active 1 goal linked to scheduled/documented [...] this morning. Coccyx wound clean, dry, and CREDIT INTERN. Thin layer of barrier cream applied after picture and measurements taken. Pt tolerated well. 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 HH Missed Vi sit Discipline -Assisted Problems Problem Start Date Status Goals Interventions Assess and Instruct Home Visit Disciplines: Assisted 05/01/2022 Active 1 goal linked to scheduled/documented intervention 4 goal interventions scheduled/documented in this visit Medication Management Disciplines: Assisted 05/01/2022 Active 1 goal linked to scheduled/documented intervention 1 goal intervention scheduled/documented in this visit Pain Management Disciplines: Assisted 05/01/2022 Active 1 goal linked to scheduled/documented [...] Management Goal:Pain Scheduled [facility] Visit Details Visit Type -SN HH OASIS Rece rt Discipline -Assisted Problems Problem Start Date Status Goals Interventions Assess and Instruct Home Visit Disciplines: Assisted 05/01/2022 Active 1 goal linked to scheduled/documented intervention 4 goal interventions scheduled/documented in this visit Medication Management Disciplines: Assisted 05/01/2022 Active 1 goal linked to scheduled/documented intervention 1 goal intervention scheduled/documented in this visit Pain Management Disciplines: Assisted 05/01/2022 Active 1 goal linked to scheduled/documented intervention 1 goal intervention scheduled/documented in this visit Respiratory Disciplines: Assisted 05/01/2022 Active 1 goal linked to scheduled/documented intervention 1 goal intervention scheduled/documented in this visit Wound Care and/or Skin Problems Disciplines: Assisted 05/12/2022 Active 1 goal linked to scheduled/documented [...] and cleansing wound. [facility] Visit Details Visit Type -SN HH Routine Vi sit Discipline -Assisted Problems Problem Start Date Status Goals Interventions Assess and Instruct Home Visit Disciplines: Assisted 05/01/2022 Active 1 goal linked to scheduled/documented intervention 4 goal interventions scheduled/documented in this visit Medication Management Disciplines: Assisted 05/01/2022 Active 1 goal linked to scheduled/documented intervention 1 goal intervention scheduled/documented in this visit Pain Management Disciplines: Assisted 05/01/2022 Active 1 goal linked to scheduled/documented intervention 1 goal intervention scheduled/documented in this visit Respiratory Disciplines: Assisted 05/01/2022 Active 1 goal linked to scheduled/documented intervention 1 goal intervention scheduled/documented in this visit Wound Care and/or Skin Problems Disciplines: Assisted 05/12/2022 Active - 1 problem intervention scheduled/documented [...] health or provider. [facility] Visit Details Visit Type -SN HH OASIS Rece rt Discipline -Assisted Problems Problem Start Date Status Goals Interventions Assess and Instruct Home Visit Disciplines: Assisted 05/01/2022 Active 1 goal linked to scheduled/documented intervention 4 goal interventions scheduled/documented in this visit Medication Management Disciplines: Assisted 05/01/2022 Active 1 goal linked to scheduled/documented intervention 1 goal intervention scheduled/documented in this visit Pain Management Disciplines: Assisted 05/01/2022 Active 1 goal linked to scheduled/documented intervention 1 goal intervention scheduled/documented in this visit Respiratory Disciplines: Assisted 05/01/2022 Active 1 goal linked to scheduled/documented intervention 1 goal intervention scheduled/documented in this visit Wound Care and/or Skin Problems Disciplines: Assisted 05/12/2022 Active 1 goal linked to scheduled/documented [...] and cleansing wound. [facility] Visit Details Visit Type -SN HH Routine Vi sit Discipline -Assisted Problems Problem Start Date Status Goals Interventions Assess and Instruct Home Visit Disciplines: Assisted 05/01/2022 Active 1 goal linked to scheduled/documented intervention 4 goal interventions scheduled/documented in this visit Medication Management Disciplines: Assisted 05/01/2022 Active 1 goal linked to scheduled/documented intervention 1 goal intervention scheduled/documented in this visit Pain Management Disciplines: Assisted 05/01/2022 Active 1 goal linked to scheduled/documented intervention 1 goal intervention scheduled/documented in this visit Respiratory Disciplines: Assisted 05/01/2022 Active 1 goal linked to scheduled/documented intervention 1 goal intervention scheduled/documented in this visit Wound Care and/or Skin Problems Disciplines: Assisted 05/12/2022 Active - 1 problem intervention scheduled/documented [...] health or provider. [facility] Visit Details Visit Type -SN HH Routine Vi sit Discipline -Assisted Problems Problem Start Date Status Goals Interventions Assess and Instruct Home Visit Disciplines: Assisted 05/01/2022 Active 1 goal linked to scheduled/documented intervention 4 goal interventions scheduled/documented in this visit Medication Management Disciplines: Assisted 05/01/2022 Active 1 goal linked to scheduled/documented intervention 1 goal intervention scheduled/documented in this visit Pain Management Disciplines: Assisted 05/01/2022 Active 1 goal linked to scheduled/documented intervention 1 goal intervention scheduled/documented in this visit Respiratory Disciplines: Assisted 05/01/2022 Active 1 goal linked to scheduled/documented intervention 1 goal intervention scheduled/documented in this visit Wound Care and/or Skin Problems Disciplines: Assisted 05/12/2022 Active - 1 problem intervention scheduled/documented [...] with wound education. [facility] Visit Details Visit Type -SN HH Routine Vi sit Discipline -Assisted Problems Problem Start Date Status Goals Interventions Assess and Instruct Home Visit Disciplines: Assisted 05/01/2022 Active 1 goal linked to scheduled/documented intervention 4 goal interventions scheduled/documented in this visit Medication Management Disciplines: Assisted 05/01/2022 Active 1 goal linked to scheduled/documented intervention 1 goal intervention scheduled/documented in this visit Pain Management Disciplines: Assisted 05/01/2022 Active 1 goal linked to scheduled/documented intervention 1 goal intervention scheduled/documented in this visit Respiratory Disciplines: Assisted 05/01/2022 Active 1 goal linked to scheduled/documented intervention 1 goal intervention scheduled/documented in this visit Wound Care and/or Skin Problems Disciplines: Assisted 05/12/2022 Active - 1 problem intervention scheduled/documented [...] with wound education. [facility] Visit Details Visit Type -SN HH Routine Vi sit Discipline -Assisted Problems Problem Start Date Status Goals Interventions Assess and Instruct Home Visit Disciplines: Assisted 05/01/2022 Active 1 goal linked to scheduled/documented intervention 4 goal interventions scheduled/documented in this visit Medication Management Disciplines: Assisted 05/01/2022 Active 1 goal linked to scheduled/documented intervention 1 goal intervention scheduled/documented in this visit Pain Management Disciplines: Assisted 05/01/2022 Active 1 goal linked to scheduled/documented intervention 1 goal intervention scheduled/documented in this visit Respiratory Disciplines: Assisted 05/01/2022 Active 1 goal linked to scheduled/documented intervention 1 goal intervention scheduled/documented in this visit Wound Care and/or Skin Problems Disciplines: Assisted 05/12/2022 Active - 1 problem intervention scheduled/documented [...] with wound education. [facility] Visit Details Visit Type -SN HH Routine Vi sit Discipline -Assisted Problems Problem Start Date Status Goals Interventions Assess and Instruct Home Visit Disciplines: Assisted 05/01/2022 Active 1 goal linked to scheduled/documented intervention 4 goal interventions scheduled/documented in this visit Medication Management Disciplines: Assisted 05/01/2022 Active 1 goal linked to scheduled/documented intervention 1 goal intervention scheduled/documented in this visit Pain Management Disciplines: Assisted 05/01/2022 Active 1 goal linked to scheduled/documented intervention 1 goal intervention scheduled/documented in this visit Respiratory Disciplines: Assisted 05/01/2022 Active 1 goal linked to scheduled/documented intervention 1 goal intervention scheduled/documented in this visit Wound Care and/or Skin Problems Disciplines: Assisted 05/12/2022 Active - 1 problem intervention scheduled/documented [...] with wound education. [facility] Visit Details Visit Type -SN HH Routine Vi sit Discipline -Assisted Problems Problem Start Date Status Goals Interventions Assess and Instruct Home Visit Disciplines: Assisted 05/01/2022 Active 1 goal linked to scheduled/documented intervention 4 goal interventions scheduled/documented in this visit Medication Management Disciplines: Assisted 05/01/2022 Active 1 goal linked to scheduled/documented intervention 1 goal intervention scheduled/documented in this visit Pain Management Disciplines: Assisted 05/01/2022 Active 1 goal linked to scheduled/documented intervention 1 goal intervention scheduled/documented in this visit Respiratory Disciplines: Assisted 05/01/2022 Active 1 goal linked to scheduled/documented intervention 1 goal intervention scheduled/documented in this visit Wound Care and/or Skin Problems Disciplines: Assisted 05/12/2022 Active - 1 problem intervention scheduled/documented [...] with wound education. [facility] Visit Details Visit Type -SN HH OASIS Rece rt Discipline -Assisted Problems Problem Start Date Status Goals Interventions Assess and Instruct Home Visit Disciplines: Assisted 05/01/2022 Active 1 goal linked to scheduled/documented intervention 4 goal interventions scheduled/documented in this visit Medication Management Disciplines: Assisted 05/01/2022 Active 1 goal linked to scheduled/documented intervention 1 goal intervention scheduled/documented in this visit Pain Management Disciplines: Assisted 05/01/2022 Active 1 goal linked to scheduled/documented intervention 1 goal intervention scheduled/documented in this visit Respiratory Disciplines: Assisted 05/01/2022 Active 1 goal linked to scheduled/documented intervention 1 goal intervention scheduled/documented in this visit Wound Care and/or Skin Problems Disciplines: Assisted 05/12/2022 Active - 1 problem intervention scheduled/documented [...] with wound education. [facility] Visit Details Visit Type -SN HH OASIS Rece rt Discipline -Assisted Problems Problem Start Date Status Goals Interventions Assess and Instruct Home Visit Disciplines: Assisted 05/01/2022 Active 1 goal linked to scheduled/documented intervention 4 goal interventions scheduled/documented in this visit Medication Management Disciplines: Assisted 05/01/2022 Active 1 goal linked to scheduled/documented intervention 1 goal intervention scheduled/documented in this visit Pain Management Disciplines: Assisted 05/01/2022 Active 1 goal linked to scheduled/documented intervention 1 goal intervention scheduled/documented in this visit Respiratory Disciplines: Assisted 05/01/2022 Active 1 goal linked to scheduled/documented intervention 1 goal intervention scheduled/documented in this visit Wound Care and/or Skin Problems Disciplines: Assisted 05/12/2022 Active - 1 problem intervention scheduled/documented [...] with wound education. [facility] Visit Details Visit Type -SN HH OASIS Rece rt Discipline -Assisted Problems Problem Start Date Status Goals Interventions Assess and Instruct Home Visit Disciplines: Assisted 05/01/2022 Active 1 goal linked to scheduled/documented intervention 4 goal interventions scheduled/documented in this visit Medication Management Disciplines: Assisted 05/01/2022 Active 1 goal linked to scheduled/documented intervention 1 goal intervention scheduled/documented in this visit Pain Management Disciplines: Assisted 05/01/2022 Active 1 goal linked to scheduled/documented intervention 1 goal intervention scheduled/documented in this visit Respiratory Disciplines: Assisted 05/01/2022 Active 1 goal linked to scheduled/documented intervention 1 goal intervention scheduled/documented in this visit Wound Care and/or Skin Problems Disciplines: Assisted 05/12/2022 Active - 1 problem intervention scheduled/documented [...] with wound education. [facility] Visit Details Visit Type -SN HH Routine Vi sit Discipline -Assisted Problems Problem Start Date Status Goals Interventions Assess and Instruct Home Visit Disciplines: Assisted 05/01/2022 Active 1 goal linked to scheduled/documented intervention 4 goal interventions scheduled/documented in this visit Medication Management Disciplines: Assisted 05/01/2022 Active 1 goal linked to scheduled/documented intervention 1 goal intervention scheduled/documented in this visit Pain Management Disciplines: Assisted 05/01/2022 Active 1 goal linked to scheduled/documented intervention 1 goal intervention scheduled/documented in this visit Respiratory Disciplines: Assisted 05/01/2022 Active 1 goal linked to scheduled/documented intervention 1 goal intervention scheduled/documented in this visit Wound Care and/or Skin Problems Disciplines: Assisted 05/12/2022 Active - 1 problem intervention scheduled/documented [...] with wound education. 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 Routine Discipline -Assisted Problems Problem Start Date Status Goals Interventions Assess and Instruct Home Visit Disciplines: Assisted 05/01/2022 Active 1 goal linked to scheduled/documented intervention 4 goal interventions scheduled/documented in this visit Medication Management Disciplines: Assisted 05/01/2022 Active 1 goal linked to scheduled/documented intervention 1 goal intervention scheduled/documented in this visit Pain Management Disciplines: Assisted 05/01/2022 Active 1 goal linked to scheduled/documented intervention 1 goal intervention scheduled/documented in this visit Wound Care and/or Skin Problems Disciplines: Assisted 05/12/2022 Active - 1 problem intervention scheduled/documented [...] of care note* Visit Details Visit Type -[facility] OASIS Guerrero sfer Discipline -Assisted Problems Problem Start Date Status Goals Interventions Assess and Instruct Home Visit Disciplines: Assisted 05/01/2022 Active 1 goal linked to scheduled/documented intervention 4 goal interventions scheduled/documented in this visit Medication Management Disciplines: Assisted 05/01/2022 Active 1 goal linked to scheduled/documented intervention 1 goal intervention scheduled/documented in this visit Pain Management Disciplines: Assisted 05/01/2022 Active 1 goal linked to scheduled/documented intervention 1 goal intervention scheduled/documented in this visit Wound Care and/or Skin Problems Disciplines: Assisted 05/12/2022 Active - 1 problem intervention scheduled/documented [...] of care note* Visit Details Visit Type -[facility] OASIS Resu mption of Care Discipline -Assisted Problems Problem Start Date Status Goals Interventions Assess and Instruct Home Visit Disciplines: Assisted 05/01/2022 Active 1 goal linked to scheduled/documented intervention 4 goal interventions scheduled/documented in this visit Medication Management Disciplines: Assisted 05/01/2022 Active 1 goal linked to scheduled/documented intervention 1 goal intervention scheduled/documented in this visit Pain Management Disciplines: Assisted 05/01/2022 Active 1 goal linked to scheduled/documented intervention 1 goal intervention scheduled/documented in this visit Respiratory Disciplines: Assisted 05/01/2022 Active 1 goal linked to scheduled/documented intervention 1 goal intervention scheduled/documented in this visit Wound Care and/or Skin Problems Disciplines: Assisted 05/12/2022 Active - 1 problem intervention scheduled/documented [...] with wound education. [facility] Visit Details Visit Type -SN HH OASIS Resu mption of Care Discipline -Assisted Problems Problem Start Date Status Goals Interventions Assess and Instruct Home Visit Disciplines: Assisted 05/01/2022 Active 1 goal linked to scheduled/documented intervention 4 goal interventions scheduled/documented in this visit Medication Management Disciplines: Assisted 05/01/2022 Active 1 goal linked to scheduled/documented intervention 1 goal intervention scheduled/documented in this visit Pain Management Disciplines: Assisted 05/01/2022 Active 1 goal linked to scheduled/documented intervention 1 goal intervention scheduled/documented in this visit Respiratory Disciplines: Assisted 05/01/2022 Active 1 goal linked to scheduled/documented intervention 1 goal intervention scheduled/documented in this visit Wound Care and/or Skin Problems Disciplines: Assisted 05/12/2022 Active - 1 problem intervention scheduled/documented [...] with wound education. [facility] Visit Details Visit Type -SN HH Routine Vi sit Discipline -Assisted Problems Problem Start Date Status Goals Interventions Assess and Instruct Home Visit Disciplines: Assisted 05/01/2022 Active 1 goal linked to scheduled/documented intervention 4 goal interventions scheduled/documented in this visit Medication Management Disciplines: Assisted 05/01/2022 Active 1 goal linked to scheduled/documented intervention 1 goal intervention scheduled/documented in this visit Pain Management Disciplines: Assisted 05/01/2022 Active 1 goal linked to scheduled/documented intervention 1 goal intervention scheduled/documented in this visit Respiratory Disciplines: Assisted 05/01/2022 Active 1 goal linked to scheduled/documented intervention 1 goal intervention scheduled/documented in this visit Wound Care and/or Skin Problems Disciplines: Assisted 05/12/2022 Active 1 goal linked to scheduled/documented [...] with wound education. [facility] Visit Details Visit Type -SN HH OASIS Disc harge Discipline -Assisted Problems Problem Start Date Status Goals Interventions Assess and Instruct Home Visit Disciplines: Assisted 05/01/2022 Resolved on 12/22/2022 1 goal linked to scheduled/documented intervention 4 goal interventions scheduled/documented in this visit Medication Management Disciplines: Assisted 05/01/2022 Resolved on 12/22/2022 1 goal linked to scheduled/documented intervention 1 goal intervention scheduled/documented in this visit Pain Management Disciplines: Assisted 05/01/2022 Resolved on 12/22/2022 1 goal linked to scheduled/documented intervention 1 goal intervention scheduled/documented in this visit Wound Care and/or Skin Problems Disciplines: Assisted 05/12/2022 Resolved on 12/22/2022 - 1 problem [...] he will see the patient in the [facility] wed and confirms patient will need to be drained by [facility] wed sometime [facility] Actions left side area of concern be low insertion site picture taaken and uploaded into [employer]. message sent to Niurka BALTAZAR with dr [...] - 10 pleure x drains/dressing kits order #[id number] [facility]* Actions L pleurex drain - 350ml ambe r hazy R pleurex drain - 450ml yellow hazy [facility]* Actions Supplies ordered - 10 pleure x drains/dressing kits order #[id number] [facility] [...] supplies ordered - 10 kits - confirmation #[id number] [facility]* Actions KHOI pleurex drain catheters drained without issue.Pt tolerated well. 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 As of now, it is planned that he runs 3x/day, M, W, F. [facility]* Actions #[id number] - order number 10 pleurex drains [facility]* Actions 10 pleurex drain kits ordere d - Confirmation #[id number] L drain - 350ml clear yellow noted [...] his coccyx area. [facility] Actions A picture of the pt's wound was take, and then wound care was performed. After the pt had donned his clothes and sat down, the picture was showed to him. While transfering the phone back, the [email or web address] catracho was accidently closed. This caused the [...] home care services. documented in this encounter [facility] for visit Narrative* Auth/Cert Specialty Diagnoses / Procedures Referred By Alisson t Referred To Contact Diagnoses Pleural effusion Bilateral pleural effusion Pleural effusion [J90] Bilateral pleural effusion [J90] Procedures RI INSERTION INDWELLING TUNNELED PLEURAL CATHETER RIGHT PLEUR X CATHETER PLACEMENT Referral ID Status Reason Start Date Expiration Date Visits Re quested Visits Authorized [id number] 1 1 [facility] N[facility]* Auth/Cert Specialty Diagnoses / Procedures Referred By Contac t Referred To Contact Referral ID Status Reason Start Date Expiration Date Visits Re quested Visits Authorized [id number] 1 1 [facility]* Auth/Cert Specialty Diagnoses / Procedures Referred By Contac t Referred To Contact Referral ID Status Reason Start Date Expiration Date Visits Re quested Visits Authorized [id number] 1 1 [facility]* Auth/Cert Specialty Diagnoses / Procedures Referred By Contac t Referred To Contact Referral ID Status Reason Start Date Expiration Date Visits Re quested Visits Authorized [id number] 1 1 [facility]* Auth/Cert Specialty Diagnoses / Procedures Referred By Contac t Referred To Contact Diagnoses Malignant neoplasm of ascending colon (HCC) Malignant neoplasm of ascending colon (HCC) [C18.2] Procedures RI COLECTOMY PRTL W/RMVL TERMINAL ILEUM & ILEOCOLOS Sherry George, DO [address] [place] [address] Referral ID Status Reason Start Date Expiration Date Visits Re quested Visits Authorized [id number] 04/11/2022 1 1 [facility] Assessments Diagnosis Coronary artery disease invo lving mentasta coronary artery of mentasta heart without angina pectoris - Primary Essential hypertension Unspecified essential hypertension Diagnosis Essential hypertension- Primary Unspecified essential hypertension Coronary artery disease involving mentasta coronary artery of mentasta heart without angina pectoris Dyspnea on exertion Other dyspnea and respiratory abnormality Ventricular tachycardia (paroxysmal) (HCC) Paroxysmal ventricular tachycardia Mixed hyperlipidemia Diagnosis Coronary artery disease involving mentasta coronary artery of mentasta heart without angina pectoris Essential hypertension Unspecified essential hypertension Ventricular tachycardia (paroxysmal) (HCC) Paroxysmal ventricular tachycardia Diagnosis Coronary artery disease involving mentasta coronary artery of mentasta heart without angina pectoris- Primary Mixed hyperlipidemia Chronic combined systolic and diastolic congestive heart failure (HCC) Essential hypertension Unspecified essential hypertension Diagnosis ELLIOTT (dyspnea on exertion) Other dyspnea and respiratory abnormality Diagnosis Therapeutic drug monitoring- Primary Encounter for therapeutic drug monitoring ELLIOTT (dyspnea on exertion) Other dyspnea and respiratory abnormality Essential hypertension Unspecified essential hypertension Coronary artery disease involving mentasta coronary artery of mentasta heart without angina pectoris MARCELO on CPAP [...] failure (HCC) Diagnosis Coronary artery disease involving mentasta coronary artery of mentasta heart without angina pectoris Chronic systolic congestive heart failure (HCC) Mixed hyperlipidemia Essential hypertension Unspecified essential hypertension Diagnosis Therapeutic drug monitoring Encounter for therapeutic drug monitoring Chronic systolic congestive heart failure (HCC) Diagnosis Therapeutic drug monitoring Encounter for therapeutic drug monitoring Chronic systolic heart failure (HCC) Chronic systolic heart failure Diagnosis Coronary artery disease involving mentasta coronary artery of mentasta heart without angina pectoris Diagnosis Chronic systolic congestive heart failure (HCC) Diagnosis medication management- Primary Encounter for therapeutic drug monitoring Chronic systolic congestive heart failure (HCC) Diagnosis Therapeutic drug monitoring- Primary Encounter for therapeutic drug monitoring Chronic systolic heart failure (HCC) Chronic systolic heart failure Diagnosis MARCELO on CPAP Essential hypertension Unspecified essential hypertension Coronary artery disease involving mentasta coronary artery of mentasta heart without angina pectoris Chronic systolic congestive heart failure (HCC) Diagnosis Therapeutic drug monitoring- Primary Encounter for therapeutic drug monitoring Chronic systolic congestive heart failure (HCC) Diagnosis Coronary artery disease involving mentasta coronary artery of mentasta heart without angina pectoris- Primary Mixed hyperlipidemia Chronic systolic congestive heart failure (HCC) Essential hypertension Unspecified essential hypertension 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) Reason for Referral Status Reason Specialty Diagnoses / Procedures Referred By Contact Referred To Contact Authorized Cardiology Diagnoses Coronary artery disease involving mentasta coronary artery of mentasta heart without angina pectoris Essential hypertension Ventricular tachycardia (paroxysmal) (HCC) Procedures Echocardiogram complete Lenin Ramirez MD [address] [facility] Timmy [address] [place] [address] Status Reason Specialty Diagnoses / Procedures Referred By Contact Referred To Contact Authorized Cardiology Diagnoses Coronary artery disease involving mentasta coronary artery of mentasta heart without angina pectoris Procedures ECG 12 lead Lenin Ramirez MD [address] [place] [address] Status Reason Specialty Diagnoses / Procedures Referre d By Contact Referred To Contact Closed Cardiology Diagnoses Coronary artery disease involving mentasta coronary artery of mentasta heart without angina pectoris Essential hypertension Ventricular tachycardia (paroxysmal) (HCC) Procedures Echocardiogram complete Lenin Ramirez MD [address] [facility] [address] [place] [address] Status Reason Specialty Diagnoses / Procedures Referre d By Contact Referred To Contact Closed Radiology Diagnoses ELLIOTT (dyspnea on exertion) Procedures NM Myocardial Perfusion Multiple SPECT Lenin Ramirez MD [address] [facility] [address] [place] [address] Status Reason Specialty Diagnoses / Procedures Referred By Contact Referred To Contact Pending Review Cardiology Diagnoses ELLIOTT (dyspnea on exertion) Procedures Echocardiogram complete Park Hawk, POLICE DETECTIVE [address] [facility] [address] [place], [place] [id number] Status Reason Specialty Diagnoses / Procedures Referred By Contact Referred To Contact Authorized Diagnoses Therapeutic drug monitoring Park Hawk, IGOR [address] [facility] Tim[address] [place], [place] [phone] [facility] [address] [place] [address] Status Reason Specialty Diagnoses / Procedures Referre d By Contact Referred To Contact Closed Cardiology Diagnoses ELLIOTT (dyspnea on exertion) Procedures Echocardiogram complete Park Hawk CNP [address] [place] [phone] Specialty Diagnoses / Procedures Referred By Contac t Referred To Contact Cardiology Diagnoses PAF (paroxysmal atrial fibrillation) (HCC) Procedures ECG 12 lead Park Hawk CNP [address] [phone] Referral ID Status Reason Start Date Expiration Date V isits Requested Visits Authorized [id number] Pending Review 10/26/2020 10/26/2021 1 1 Referral ID Status Reason Start Date Expiration Date V isits Requested Visits Authorized [id number] Authorized 10/26/2020 10/26/2021 1 1 Specialty Diagnoses / Procedures Referred By Contac t Referred To Contact Radiology Diagnoses Pleural effusion Procedures CT Guided Thoracentesis Park Hawk CNP [address] [place] [address] Referral ID Status Reason Start Date Expiration Date V isits Requested Visits Authorized [id number] New Request 10/26/2020 10/26/2021 1 1 Specialty Diagnoses / Procedures Referred By Contac t Referred To Contact Cardiology Diagnoses S/P CABG (coronary artery bypass graft) PAF (paroxysmal atrial fibrillation) (HCC) Chronic systolic congestive heart failure (HCC) Coronary artery disease involving mentasta coronary artery of mentasta heart without angina pectoris Essential hypertension Procedures Echocardiogram complete Lenin Ramirez MD [address] [address] Referral ID Status Reason Start Date Expiration Date V isits Requested Visits Authorized [id number] Pending Review 01/17/2021 01/17/2022 1 1 Specialty Diagnoses / Procedures Referred By Contac t Referred To Contact Radiology Diagnoses Pleural effusion Procedures CT Chest Without Contrast Jalil Sparks MD [address] [facility] [address] [place] [address] Referral ID Status Reason Start Date Expiration Date V isits Requested Visits Authorized [id number] Authorized 01/12/2021 01/12/2022 1 1 Specialty Diagnoses / Procedures Referred By Contac t Referred To Contact Cardiology Diagnoses PAF (paroxysmal atrial fibrillation) (HCC) Procedures ECG 12 Lead Lenin Ramirez MD [address] [facility] [address] [place] [phone] Referral ID Status Reason Start Date Expiration Date V isits Requested Visits Authorized [id number] Pending Review 06/09/2021 06/09/2022 4 4 Specialty Diagnoses / Procedures Referred By Contac t Referred To Contact Home Health Services Diagnoses Sepsis, due to unspecified organism, unspecified whether acute organ dysfunction present (HCC) Other pneumonia, unspecified organism Jalil Sparks MD [address] [place] [address] [address] [place] [address] [address] Referral ID Status Reason Start Date Expiration Date V isits Requested Visits Authorized [id number] Authorized 07/05/2021 07/05/2022 1 1 Specialty Diagnoses / Procedures Referred By Contac t Referred To Contact Home Health Services Diagnoses Chronic systolic congestive heart failure (HCC) Coronary artery disease involving mentasta coronary artery of mentasta heart without angina pectoris Dyspnea on exertion Generalized weakness Lenin Ramirez MD [address] [address] Referral ID Status Reason Start Date Expiration Date Visits Requested Visits Authorized [id number] Authorized Specialty Services Required/Pat reinaldont's Best Interest 08/17/2021 08/17/2022 1 1 Specialty Diagnoses / Procedures Referred By Contac t Referred To Contact Cardiology Diagnoses Coronary artery disease involving mentasta coronary artery of mentasta heart without angina pectoris Chronic systolic congestive heart failure (HCC) Procedures Echocardiogram limited Lenin Ramirez MD [address] [facility] [address] [place] [address] Referral ID Status Reason Start Date Expiration Date V isits Requested Visits Authorized [id number] New Request 11/17/2021 11/17/2022 1 1 Specialty Diagnoses / Procedures Referred By Contac t Referred To Contact General Surgery Diagnoses Adenocarcinoma (HCC) System, Provider Not In Sherry George DO [address] [address] Referral ID Status Reason Start Date Expiration Date V isits Requested Visits Authorized [id number] Authorized 03/23/2022 03/23/2023 1 1 Referral ID Status Reason Start Date Expiration Date V isits Requested Visits Authorized [id number] Pending Review 08/26/2022 08/26/2023 10 10 Specialty Diagnoses / Procedures Referred By Contac t Referred To Contact Radiology Diagnoses Elevated CEA Malignant neoplasm of ascending colon (HCC) Procedures CT Chest Abdomen Pelvis With Contrast Sherry George DO [address] [address] Referral ID Status Reason Start Date Expiration Date V isits Requested Visits Authorized [id number] Pending Review 11/28/2022 11/28/2023 1 1 Specialty Diagnoses / Procedures Referred By Contac t Referred To Contact Home Health Services Diagnoses Malignant neoplasm of ascending colon (HCC) PAF (paroxysmal atrial fibrillation) (HCC) ESRD on dialysis (HCC) Cellulitis of other specified site Cellulitis of perineum Zack Olmos MD [address] [place] [address] [address] Referral ID Status Reason Start Date Expiration Date V isits Requested Visits Authorized [id number] Authorized 11/29/2022 11/29/2023 1 1 Referral ID Status Reason Start Date Expiration Date V isits Requested Visits Authorized [id number] New Request 03/08/2023 03/07/2024 1 1 History [...] effusions and is scheduled to see a flooring professional next week. He deniesany fever or chills, [...] left IVCD. Assessment/Plan: Coronary artery disease involving mentasta coronary artery of mentasta heart without angina pectoris As ischemic status [...] concerning. He is scheduled to see a flooring professional next week to have this evaluated further. [...] reasonably well following his recent hospitalization in [place] for fluid overload. He was diuresed nearly 10 pounds with a marked improvement in his edema and a mild improvement in his exertional dyspnea. He did have a visit with the flooring professional and is scheduled to undergo testing within [...] daily . Assessment/Plan: Coronary artery disease involving mentasta coronary artery of mentasta heart without angina pectoris Ed continues doing [...] not nervous/anxious. in this encounter* Park Hawk, POLICE DETECTIVE - 07/26/2018 10:44 AM EDT [facility] [address] [facility] [address] [facility] [address] Assessment & Plan: Essential hypertension B/P above goal 152/78, 163/72. Monitors B/P at home almost daily and states has noticed a trend in increasing B/P. Current medications include: Lopressor 25 mg daily, Exforge 5-320 mg daily. Will plan on making medication adjustments relative to decreased EF and continue to monitor B/P closely. Coronary artery disease involving mentasta coronary artery of mentasta heart without angina pectoris Long-standing CAD with Hx RI in 2005 Cath 2015: Discrete 40% proximal [...] pillow. I suggested that he contact the [employer] company to discuss other device options to improve his comfort and compliance. CHF (congestive heart failure) (HCC) Hospitalized at [facility] earlier this year with successful diuresis. Known CKD, stage 3 and follows with Nephrology, Dr. Christiansen, in [place]. Recent stress testing revealed substantial decline in EF. Ed states he does have ELLIOTT, now with moderate exertion, it has improved from the ELLIOTT he was experiencing with minimal exertion. Ed continues to have bilateral lower leg edema which improves overnight and increases as his day goes on. He is wearing compression stockings daily. 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 Will follow up with icu staff nurse patient assistance program. Orders Placed This Encounter [...] year with an acute HF episode at [facility]. After diuresis the symptoms of ELLIOTT with mild exertion improved. He continues to have ELLIOTT with moderate exertion and bilateral lower leg edema persists. He denies chest pain/pressure, orthopnea, PND, palpitations, lightheadedness, syncope or near-syncopal episodes. Histories: Past Medical History: Diagnosis Date Abnormal stress test Arthritis Chest pain CHF (congestive heart failure) ([facility]) Chronic kidney disease COPD (chronic obstructive pulmonary disease) ([facility]) 03/2018 Coronary artery disease Hyperlipidemia Hypertension Myocardial infarction ([facility]) MARCELO on CPAP 2018 SOB (shortness of breath) Past Surgical History: Procedure Laterality Date CARDIAC CATHETERIZATION N/A 08/11/2014 Procedure: Left Heart Cath Possible PTCA/Stent; Surgeon: Lenin Ramirez MD; [facility]; Service: CARDIAC CATHETERIZATION Right 12/31/2014 Procedure: Left Heart Cath Possible PTCA/Stent; Surgeon: Ranulfo Cobb MD; Location: [facility]; Service: CARDIAC CATHETERIZATION 08/11/2014 EF: 55% CARDIAC [...] in about 3 weeks (around 08/16/2018) for WASH TUB MACHINE OPERATOR visit. Park Hawk CNP * Mairtza Barron MA - 07/26/2018 8:03 AM EDT [...] Disease Management Nurse Progress Note [facility] 08/03/18 Minh Gonzalez 1945 Congestive [...] Disease Management Nurse Progress Note [facility] 08/10/18 Minh Limtristen 1945 Congestive [...] discussed which medications to titrate next with aPrk and Dr. Ramirez. Will check blood work [...] Disease Management Nurse Progress Note [facility] 08/31/18 Minh Gonzalez 1945 Congestive Heart Failure (HFC) Minh Gonzalze is a 73 y.o. year-old male seen [...] Disease Management Nurse Progress Note [facility] 09/21/18 Minh Gonzalez 1945 Congestive [...] Slight limitation of physical activity. Lab Drawn: [facility] today Assessment & Plan Minh was seen [...] Disease Management Nurse Progress Note [facility] 10/12/18 Minh Gonzalez 1945 Congestive [...] EDT Pre Auth has been approved by [facility] for Entresto 49 mg/51 mg. Pharmacy notified (Ligia Tillman) documented in this encounter* Leonila Walls RN - 11/09/2018 10:34 AM EDT Heart Disease Management Nurse Progress Note [facility] 11/09/18 Minh Askewrich 1945 Congestive [...] Disease Management Nurse Progress Note [facility] 12/31/18 Minh Gonzalez 1945 Congestive [...] Slight limitation of physical activity. Lab Drawn: [facility] today Assessment & Plan Minh was seen [...] productive cough but will be seeing his Nurse Advocate next week. Diagnoses and all orders for [...] day . Assessment/Plan: Coronary artery disease involving mentasta coronary artery of mentasta heart without angina pectoris He continues doing [...] Disease Management Nurse Progress Note [facility] 03/25/19 Minh Gonzalez 1945 Congestive [...] Disease Management Nurse Progress Note [facility] 05/24/19 Minh Askewrich 1945 Congestive [...] Disease Management Nurse Progress Note [facility] 07/31/19 Minh Limtristen 1945 Congestive [...] Disease Management Nurse Progress Note [facility] 09/09/19 Minh Gonzalez 1945 Congestive Heart Failure (HC visit) Mnih Gonzalez is a 74 y.o. year-old male [...] 10/01/2019 9:05 AM EDT Application faxed to [employer] Patient assistance. FAX: [phone] documented in this encounter* Leonila Walls RN - 11/04/2019 12:10 PM EDT Heart Disease Management Nurse Progress Note [facility] 11/04/19 Minh Askewrich 1945 Congestive [...] Disease Management Nurse Progress Note [facility] 12/23/19 Minh Gonzalez 1945 Congestive [...] Disease Management Nurse Progress Note [facility] 02/17/20 Minh Limtristen 1945 Congestive [...] Lasix for him. He is following a Business Education Instructor in [place] who was happy with his numbers last week. Ed said he will see his Nurse Advocate next week. BP stable at home. His [...] EST Heart Disease Management Nurse Progress Note [facility] 01/28/19 Minh Gonzalez 1945 Congestive [...] productive cough in the morning but his Nurse Advocate does not want to start any inhalers [...] EDT [facility] [address] [facility] [address] [facility] [phone] Assessment & Plan: MARCELO on CPAP Using [...] quite bothersome diarrhea. Coronary artery disease involving mentasta coronary artery of mentasta heart without angina pectoris Long-standing CAD with [...] difficulty. 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 and is [...] Arthritis Chest pain CHF (congestive heart failure) ([facility]) Chronic kidney disease COPD (chronic obstructive pulmonary disease) ([facility]) 03/2018 Coronary artery disease Hyperlipidemia Hypertension Myocardial infarction ([facility]) MARCELO on CPAP 2018 SOB (shortness of breath) Past Surgical History: Procedure Laterality Date CARDIAC CATHETERIZATION N/A 08/11/2014 Procedure: Left Heart Cath Possible PTCA/Stent; Surgeon: Lenin Ramirez MD; Location: [facility]; Service: CARDIAC CATHETERIZATION Right 12/31/2014 Procedure: Left Heart Cath Possible PTCA/Stent; Surgeon: Ranulfo Cobb MD; Location: [facility]; Service: CARDIAC CATHETERIZATION 08/11/2014 EF: 55% CARDIAC [...] Disease Management Nurse Progress Note [facility] 04/20/20 Minh sAkewrich 1945 Congestive Heart Failure (HFC visit) Minh [...] Disease Management Nurse Progress Note [facility] 11/30/18 Minh Corbin Lisa 1945 [...] some increase in edema, states he had montenegrin last night. Ed states he has no [...] AM EST Telephone Visit Via Phone Call [facility] [address] [facility] [address] [facility] [id number] Telephone Visit [facility] 03/26/2020 Lenin Ramirez MD Provider Location: [place] Patient Location Contract Attorney: None Patient Location: Patient's Home Patient: Minh [...] there are inherent diagnostic limitations compared to [id number] evaluations. We elected toproceed with the telephone [...] were made today. Coronary artery disease involving mentasta coronary artery of mentasta heart without angina pectoris - Primary He has no angina no other symptoms suggestive of progressive ischemic disease. Relevant Medications rosuvastatin (Crestor) 10 MG tablet carvediloL (COREG) 25 MG tablet CHF (congestive heart failure) ([facility]) I am extremely pleased with [...] Plan of Care. documented in this encounter* eLonila Walls RN - 06/19/2020 1:10 PM EDT Heart Disease Management Nurse Progress Note [facility] 06/19/20 Minh Gonzalez 1945 Congestive [...] Will continue to monitor kidneys through his Business Education Instructor. Diagnoses and all orders for this visit: [...] Documents on File Type Date Recorded Patient Plastering Contractor Expl anation Advance Directives and Livin g Will Advance Directives and Livin g Will 05/04/2018 12:00 AM Documents on File Type Date Recorded Patient Plastering Contractor Expl anation Advance Directives and Livin g Will Advance Directives and Livin g Will 05/04/2018 12:00 AM Documents on File Type Date Recorded Patient Plastering Contractor Expl anation Advance Directives and Livin g [...] Documents on File Type Date Recorded Patient Plastering Contractor Expl anation Advance Directives and Livin g [...] Documents on File Type Date Recorded Patient Plastering Contractor Expl anation Advance Directives and Livin g Will Advance Directives and Livin g Will 10/26/2020 9:39 AM Documents on File Type Date Recorded Patient Plastering Contractor Expl anation Advance Directives and Livin g Will Advance Directives and Livin g Will 11/23/2020 2:00 PM Documents on File Type Date Recorded Patient Plastering Contractor Expl anation Advance Directives and Livin g Will Advance Directives and Livin g Will 11/23/2020 2:00 PM Documents on File Type Date Recorded Patient Plastering Contractor Expl anation Advance Directives and Livin g Will Advance Directives and Livin g Will 01/13/2021 2:47 PM Documents on File Type Date Recorded Patient Plastering Contractor Expl anation Advance Directives and Livin g Will Advance Directives and Livin g Will 01/13/2021 2:47 PM Documents on File Type Date Recorded Patient Plastering Contractor Expl anation Advance Directives and Livin g [...] Documents on File Type Date Recorded Patient Plastering Contractor Expl anation Advance Directives and Livin g Will Advance Directives and Livin g Will 01/18/2021 2:47 PM Latest Code Status on File Code Status Date Activated Date Inactivated Comments Full Code 01/18/2021 9:08 AM 01/19/2021 5:39 PM Full Code 09/04/2020 1:22 PM 09/10/2020 1:54 PM Documents on File Type Date Recorded Patient Plastering Contractor Expl anation Advance Directives and Livin g Will Advance Directives and Livin g Will 02/03/2021 2:47 PM Documents on File Type Date Recorded Patient Plastering Contractor Expl anation Advance Directives and Livin g Will Advance Directives and Livin g Will 02/03/2021 2:47 PM Documents on File Type Date Recorded Patient Plastering Contractor Expl anation Advance Directives and Living Will Advance Directives and Living Will 02/22/2021 2:47 PM NO COPY IN SOARIAN Documents on File Type Date Recorded Patient Plastering Contractor Expl anation Advance Directives and Living Will [...] Documents on File Type Date Recorded Patient Plastering Contractor Expl anation Power of Printer Slotter Feeder Latest Code Status on File Code Status [...] Documents on File Type Date Recorded Patient Plastering Contractor Expl anation Power of Printer Slotter Feeder Latest Code Status on File Code Status [...] Closed Cardiology Diagnoses Coronary artery disease involving mentasta coronary artery of mentasta heart without angina pectoris Essential hypertension Ventricular tachycardia (paroxysmal) (HCC) Procedures Echocardiogram complete Lenin Ramirez MD [address] [facility] [address] [place] [address] Reason Comments Follow-up s/p d/c [facility]. new ons et CHF Medication Management pt is to start Exf orge 5/320 mg tablet. 1 tablet PO QD Status Reason Specialty Diagnoses / Procedures Referre d By Contact Referred To Contact Closed Radiology Diagnoses ELLIOTT (dyspnea on exertion) Procedures NM Myocardial Perfusion Multiple SPECT Lenin Ramirez MD [address] [address] Reason Comments Follow-up abn SPECT. Hypertension pt [...] Echocardiogram complete Park Hawk CNP [address] [facility] [address] [place] [address] Reason Comments Follow-up 6 mo f/u. no [...] mo Reason Comments Follow-up go over Xray [place] SOB/ - Booster? Dr Ramirez said not to last time he had the Moderna Restless legs per James possibly remove the AMIO Melationin did not work Specialty Diagnoses / Procedures Referred By Alisson gallegos Referred To Contact Cardiothoracic Surgery Diagnoses Bilateral pleural effusion Park Hawk, POLICE DETECTIVE [address] [place] [address] Michael Quinn MD [address] [facility] [address] [place] [address] Referral ID Status Reason Start Date Expiration Date V isits Requested Visits Authorized [id number] Closed Specialty Services Required/Khalida ent's Best Interest [...] Not In Sherry George DO [address] [address] Referral ID Status Reason Start Date Expiration Date Visits Re quested Visits Authorized [id number] Closed 03/23/2022 03/23/2023 1 1 Reason Comments Fatigue Specialty Diagnoses / Procedures Referred By Alisson t Referred To Contact Referral ID Status Reason Start Date Expiration Date Visits Re quested Visits Authorized [id number] 1 1 Reason Comments Medication Refill Reason Comments Follow-up Regular follow up. Mabel lu meds with list pt brought Reason Onset [...] concerning. He is scheduled to see a flooring professional next week to have this evaluated further. [...] today. Associated Problem(s): Coronary artery disease involving mentasta coronary artery of mentasta heart without angina pectoris As ischemic status [...] weeks. Associated Problem(s): Coronary artery disease involving mentasta coronary artery of mentasta heart without angina pectoris Ed continues doing well from an ischemic standpoint with no angina no EKG evidence of disease progression. I made no changes in his regimen today. in this encounter Associated Problem(s): CHF (congestive heart failure) (HCC) Hospitalized at [facility] earlier this year with successful diuresis. Known CKD, stage 3 and follows with Nephrology, Dr. Christiansen, in [place]. Recent stress testing revealed substantial decline in EF. Ed states he does have ELLIOTT, now with moderate exertion, it has improved from the ELLIOTT he was experiencing with minimal exertion. Ed continues to have bilateral lower leg edema which improves overnight and increases as his day goes on. He is wearing compression stockings daily. 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 Will follow up with icu staff nurse patient assistance program. Associated Problem(s): MARCELO on CPAP Currently using CPAP. States is struggling to adjust to the device. Is using a nasal pillow. I suggested that he contact the [employer] company to discuss other device options to improve his comfort and compliance. Associated Problem(s): Coronary artery disease involving mentasta coronary artery of mentasta heart without angina pectoris Long-standing CAD with Hx RI in 2005 Cath 2015: Discrete 40% proximal [...] home. Associated Problem(s): CHF (congestive heart failure) ([facility]) His most recent echocardiogram demonstrated stable left ventricular systolic function with ejection fraction in the range of 40 to 45%. Given his elevated blood pressure I did increase his Entresto to 97-103 mg twice daily but made no other changes in his medicines. Associated Problem(s): Coronary artery disease involving mentasta coronary artery of mentasta heart without angina pectoris He continues doing [...] encounter Associated Problem(s): CHF (congestive heart failure) ([facility]) Ed's stress test in July 2018 showed [...] difficulty. 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 Associated Problem(s): Coronary artery disease involving mentasta coronary artery of mentasta heart without angina pectoris Long-standing CAD with [...] basis. Associated Problem(s): Coronary artery disease involving mentasta coronary artery of mentasta heart without angina pectoris He has no angina no other symptoms suggestive of progressive ischemic disease. Associated Problem(s): Essential hypertension His blood pressure control is adequate on his current regimen. No changes were made today. Associated Problem(s): CHF (congestive heart failure) ([facility]) I am extremely pleased with [...] DATE CREATED AUTHOR AUTHOR'S ORGANIZ ATION 06/07/2019 [employer] DATE CREATED AUTHOR AUTHOR'S ORGANIZ ATION 10/04/2019 [facility] DATE CREATED AUTHOR AUTHOR'S ORGANIZ ATION 08/07/2020 [facility] DATE CREATED AUTHOR AUTHOR'S ORGANIZ ATION 05/08/2021 [facility] DATE CREATED AUTHOR AUTHOR'S ORGANIZ ATION 05/23/2021 [facility] DATE CREATED AUTHOR AUTHOR'S ORGANIZ ATION 08/06/2021 [facility] DATE CREATED AUTHOR AUTHOR'S ORGANIZ ATION 11/24/2021 [facility] DATE CREATED AUTHOR AUTHOR'S ORGANIZ ATION 05/01/2022 [facility] DATE CREATED AUTHOR AUTHOR'S ORGANIZ ATION 12/01/20[address] [facility] DATE CREATED AUTHOR AUTHOR'S ORGANIZ ATION [facility] DATE CREATED AUTHOR AUTHOR'S ORGANIZ ATION 03/23/2023 [facility] DATE CREATED AUTHOR AUTHOR'S ORGANIZ ATION 03/26/2023 [facility] Teams (unrecognized sec tion and content) Laborer Laboratory Relationship Specialty Start Date End Date Zack Olmos MD [address] [place] [address] PCP - General Family Medicine 08/11/14 [facility] Laboratory Relationship Specialty Start Date End Date Zack Olmos MD [address] [place] [address] 82706 PCP - General Family Medicine 08/11/14 [facility] Laboratory Relationship Specialty Start Date End Date Zack Olmos MD [address] [place] [address] 63383 PCP - General Family Medicine 08/11/14 [facility] Laboratory Relationship Specialty Start Date End Date Zack Olmos MD [address] [place] [address] 53266 PCP - General Family Medicine 08/11/14 Lab[facility] Laboratory Relationship Specialty Start Date End Date Zack Olmos MD [address] [place] [address] 11698 PCP - General Family Medicine 08/11/14 [facility] Laboratory Relationship Specialty Start Date End Date Zack Olmos MD [address] [place] [address] 15006 PCP - General Family Medicine 08/11/14 Lab[facility] Laboratory Relationship Specialty Start Date End Date Zack Olmos MD [address] [place] [address] 30113 PCP - General Family Medicine 08/11/14 Lab[facility] Laboratory Relationship Specialty Start Date End Date Zack Olmos MD [address] [place] [address] 17429 PCP - General Family Medicine 08/11/14 Lab[facility] Laboratory Relationship Specialty Start Date End Date Zack Olmos MD [address] [place] [address] 50081 PCP - General Family Medicine 08/11/14 Lab[facility] Laboratory Relationship Specialty Start Date End Date Zack Olmos MD [address] [place] [address] 45649 PCP - General Family Medicine 08/11/14 Lab[facility] Laboratory Relationship Specialty Start Date End Date Zack Olmos MD [address] [place] [address] 43145 PCP - General Family Medicine 08/11/14 Laborer Laboratory Relationship Specialty Start Date End Date Zack Olmos MD [address] [place] [address] 30602 PCP - General Family Medicine 08/11/14 Lab[facility] Laboratory Relationship Specialty Start Date End Date Zack Olmos MD [address] [place] [address] 85763 PCP - General Family Medicine 08/11/14 Laborer Laboratory Relationship Specialty Start Date End Date Zack Olmos MD [address] [place] [address] 23906 PCP - General Family Medicine 08/11/14 Lab[facility] Laboratory Relationship Specialty Start Date End Date Zack Olmos MD [address] [place] [address] 54729 PCP - General Family Medicine 08/11/14 Lab[facility] Laboratory Relationship Specialty Start Date End Date Zack Olmos MD [address] [place] [address] 17804 PCP - General Family Medicine 08/11/14 Laborer Laboratory Relationship Specialty Start Date End Date Zack Olmos MD [address] [place] [address] 36031 PCP - General Family Medicine 08/11/14 Laborer Laboratory Relationship Specialty Start Date End Date Zack Olmos MD [address] [place] [address] 44963 PCP - General Family Medicine 08/11/14 Laborer Laboratory Relationship Specialty Start Date End Date Zack Olmos MD [address] [place] [address] 33841 PCP - General Family Medicine 08/11/14 Laborer Laboratory Relationship Specialty Start Date End Date Zack Olmos MD [address] [place] [address] 85404 PCP - General Family Medicine 08/11/14 Laborer Laboratory Relationship Specialty Start Date End Date Zack Olmos MD [address] [place] [address] 38186 PCP - General Family Medicine 08/11/14 Lab[facility] Laboratory Relationship Specialty Start Date End Date Zack Olmos MD [address] [place] [address] 57783 PCP - General Family Medicine 08/11/14 Laborer Laboratory Relationship Specialty Start Date End Date Zack Olmos MD [address] [place] [address] 92088 PCP - General Family Medicine 08/11/14 Laborer Laboratory Relationship Specialty Start Date End Date Zack Olmos MD [address] [place] [address] 02579 PCP - General Family Medicine 08/11/14 Laborer Laboratory Relationship Specialty Start Date End Date Zack Olmos MD [address] [place] [address] 09179 PCP - General Family Medicine 08/11/14 Laborer Laboratory Relationship Specialty Start Date End Date Zack Olmos MD [address] [place] [address] 55031 PCP - General Family Medicine 08/11/14 Laborer Laboratory Relationship Specialty Start Date End Date Zack Olmos MD [address] [place] [address] 36787 PCP - General Family Medicine 08/11/14 Laborer Laboratory Relationship Specialty Start Date End Date Zack Olmos MD [address] [place] [address] 10863 PCP - General Family Medicine 08/11/14 Laborer Laboratory Relationship Specialty Start Date End Date Zack Olmos MD [address] [place] [address] 78015 PCP - General Family Medicine 08/11/14 Laborer Laboratory Relationship Specialty Start Date End Date Zack Olmos MD [address] [place] [address] 61112 PCP - General Family Medicine 08/11/14 Laborer Laboratory Relationship Specialty Start Date End Date Zack Olmos MD [address] [place] [address] 34072 PCP - General Family Medicine 08/11/14 Laborer Laboratory Relationship Specialty Start Date End Date Zack Olmos MD [address] [place] [address] 86650 PCP - General Family Medicine 08/11/14 Андрей Pizano MD [address] [place] [address] [id number] Referring Physician General Surgery 03/22/22 Laborer Laboratory Relationship Specialty Start Date End Date Zack Olmos MD [address] [place] [address] 60007 PCP - General Family Medicine 08/11/14 Lenin Ramirez MD [address] [place] [address] Consulting Physician Interventional Cardiology 04/06/22 Sherry George DO [address] [place] [address] Consulting Physician General Surgery 04/06/22 Андрей Pizano MD [address] [facility] [place] [id number] [place] [address] Referring Physician General Surgery 03/22/22 Laborer Laboratory Relationship Specialty Start Date End Date Zack Olmos MD [address] [place] [address] PCP - General Family Medicine 08/11/14 Lenin Ramirez MD [address] [place] [address] Consulting Physician Interventional Cardiology 04/06/22 Sherry George DO [address] [place] [address] Consulting Physician General Surgery 04/06/22 Андрей Pizano MD [address] [facility] [place] [id number] [place] [address] Referring Physician General Surgery 03/22/22 Laborer Laboratory Relationship Specialty Start Date End Date Zack Olmos MD [address] [place], [place] [address] PCP - General Family Medicine 08/11/14 Lenin Ramirez MD [address] [place] [address] Consulting Physician Interventional Cardiology 04/06/22 Sherry George DO [address] [place] [address] Consulting Physician General Surgery 04/06/22 Андрей Pizano MD [address] [facility] [place] [id number] [place] [address] Referring Physician General Surgery 03/22/22 Laborer Laboratory Relationship Specialty Start Date End Date Zack Olmos MD [address] [place] [address] PCP - General Family Medicine 08/11/14 Lenin Ramirez MD [address] [place] [address] Consulting Physician Interventional Cardiology 04/06/22 Sherry George DO [address] [place] [address] Consulting Physician General Surgery 04/06/22 Андрей Pizano MD [address] [facility] [place] [id number] [place] [address] Referring Physician General Surgery 03/22/22 Laborer Laboratory Relationship Specialty Start Date End Date Zack Olmos MD [address] [place] [address] PCP - General Family Medicine 08/11/14 Lenin Ramirez MD [address] [place] [address] Consulting Physician Interventional Cardiology 04/06/22 Sherry George DO [address] [place] [address] Consulting Physician General Surgery 04/06/22 Андрей Pizano MD [address] [facility] [place] [id number] [place] [address] Referring Physician General Surgery 03/22/22 Laborer Laboratory Relationship Specialty Start Date End Date Zack Olmos MD [address] [place] [address] PCP - General Family Medicine 08/11/14 Lenin Ramirez MD [address] [place] [address] Consulting Physician Interventional Cardiology 04/06/22 Sherry George DO [address] [place] [address] Consulting Physician General Surgery 04/06/22 Андрей Pizano MD [address] [facility] [place] [id number] [place] [address] Referring Physician General Surgery 03/22/22 Laborer Laboratory Relationship Specialty Start Date End Date Zack Olmos MD [address] [place] [address] PCP - General Family Medicine 08/11/14 Lenin Ramirez MD [address] [place] [address] Consulting Physician Interventional Cardiology 04/06/22 Sherry George DO [address] [place] [address] Consulting Physician General Surgery 04/06/22 Андрей Pizano MD [address] [facility] [place] [id number] [place] [address] Referring Physician General Surgery 03/22/22 Laborer Laboratory Relationship Specialty Start Date End Date Zack Olmos MD [address] [place] [address] PCP - General Family Medicine 08/11/14 Lenin Ramirez MD [address] [place] [address] Consulting Physician Interventional Cardiology 04/06/22 Sherry George DO [address] [place] [address] Consulting Physician General Surgery 04/06/22 Андрей Pizano MD [facility] [facility] [place] [id number] [place] [address] Referring Physician General Surgery 03/22/22 Laborer Laboratory Relationship Specialty Start Date End Date Zack Olmos MD [address] [place] [address] PCP - General Family Medicine 08/11/14 Lenin Ramirez MD [address] [facility] [address] [place] [address] Consulting Physician Interventional Cardiology 04/06/22 Sherry George DO [address] [place] [address] Consulting Physician General Surgery 04/06/22 Андрей Pizano MD [address] [facility] [place] [id number] [place] [address] Referring Physician General Surgery 03/22/22 Laborer Laboratory Relationship Specialty Start Date End Date Zack Olmos MD [address] [place] [address] PCP - General Family Medicine 08/11/14 Lenin Ramirez MD [address] [facility] [address] [place] [address] Consulting Physician Interventional Cardiology 04/06/22 Sherry George DO [address] [place] [address] Consulting Physician General Surgery 04/06/22 Андрей Pizano MD [address] [facility] [place] [id number] [place] [address] Referring Physician General Surgery 03/22/22 Laborer Laboratory Relationship Specialty Start Date End Date Zack Olmos MD [address] [place] [address] PCP - General Family Medicine 08/11/14 Lenin Ramirez MD [address] [place] [address] Consulting Physician Interventional Cardiology 04/06/22 Sherry George DO [address] [place] [address] Consulting Physician General Surgery 04/06/22 Андрей Pizano MD [address] [facility] [place] [id number] [place] [address] Referring Physician General Surgery 03/22/22 Laborer Laboratory Relationship Specialty Start Date End Date Zack Olmos MD [address] [place] [address] PCP - General Family Medicine 08/11/14 Lenin Ramirez MD [address] [place] [address] Consulting Physician Interventional Cardiology 04/06/22 Sherry George DO [address] [place] [address] Consulting Physician General Surgery 04/06/22 Андрей Pizano MD [address] [facility] [place] [id number] [place] [address] Referring Physician General Surgery 03/22/22 Laborer Laboratory Relationship Specialty Start Date End Date Zack Olmos MD [address] [place] [address] PCP - General Family Medicine 08/11/14 Lenin Ramirez MD [address] [place] [address] Consulting Physician Interventional Cardiology 04/06/22 Sherry George DO [address] [place] [address] Consulting Physician General Surgery 04/06/22 Андрей Pizano MD [address] [facility] [place] [id number] [place] [address] Referring Physician General Surgery 03/22/22 Laborer Laboratory Relationship Specialty Start Date End Date Zack Olmos MD [address] [place] [address] PCP - General Family Medicine 08/11/14 Lenin Ramirez MD [address] [place] [address] Consulting Physician Interventional Cardiology 04/06/22 Sherry George DO [address] [place] [address] Consulting Physician General Surgery 04/06/22 Андрей Pizano MD [address] [facility] [place] [id number] [place] [address] Referring Physician General Surgery 03/22/22 Laborer Laboratory Relationship Specialty Start Date End Date Zack Olmos MD [address] [place] [address] PCP - General Family Medicine 08/11/14 Lenin Ramirez MD [address] [place] [address] Consulting Physician Interventional Cardiology 04/06/22 Sherry George DO [address] [place] [address] Consulting Physician General Surgery 04/06/22 Андрей Pizano MD [address] [facility] [place] [id number] [place] [address] Referring Physician General Surgery 03/22/22 Laborer Laboratory Relationship Specialty Start Date End Date Zack Olmos MD [address] [place] [address] PCP - General Family Medicine 08/11/14 Lenin Ramirez MD [address] [place] [address] Consulting Physician Interventional Cardiology 04/06/22 Sherry George DO [address] [place] [address] Consulting Physician General Surgery 04/06/22 Андрей Pizano MD [address] Outpatient [facility] [id number] [place] [address] Referring Physician General Surgery 03/22/22 Laborer Laboratory Relationship Specialty Start Date End Date Zack Olmos MD [address] [place] [address] PCP - General Family Medicine 08/11/14 Lenin Ramirez MD [address] [place] [address] Consulting Physician Interventional Cardiology 04/06/22 Sherry George DO [address] [place] [address] Consulting Physician General Surgery 04/06/22 Андрей Pizano MD [address] Outpatient [place] [id number] [place] [address] Referring Physician General Surgery 03/22/22 Laborer Laboratory Relationship Specialty Start Date End Date Zack Olmos MD [address] [place] [address] PCP - General Family Medicine 08/11/14 Lenin Ramirez MD [address] [facility] [address] [place] [address] Consulting Physician Interventional Cardiology 04/06/22 Sherry George DO [address] [place] [address] Consulting Physician General Surgery 04/06/22 Андрей Pizano MD [address] Outpatient [place] [id number] [place] [address] Referring Physician General Surgery 03/22/22 Laborer Laboratory Relationship Specialty Start Date End Date Zack Olmos MD [address] [place] [address] PCP - General Family Medicine 08/11/14 Lenin Ramirez MD [address] [facility] [address] [place] [address] Consulting Physician Interventional Cardiology 04/06/22 Sherry George DO [address] [place], [place] [address] Consulting Physician General Surgery 04/06/22 Андрей Pizano MD 1761 [facility] Outpatient [place] [id number] [place] [address] Referring Physician General Surgery 03/22/22 Laborer Laboratory Relationship Specialty Start Date End Date Zack Olmos MD [address] [place], [place] [id number] PCP - General Family Medicine 08/11/14 Lenin Ramirez MD [address] [facility] [address] [place] [address] Consulting Physician Interventional Cardiology 04/06/22 Sherry George DO [address] [place] [address] Consulting Physician General Surgery 04/06/22 Андрей Pizano MD 1761 [facility] Outpatient [place] [id number] [place] [address] Referring Physician General Surgery 03/22/22 Laborer Laboratory Relationship Specialty Start Date End Date Zack Olmos MD [address] [place], [place] [id number] PCP - General Family Medicine 08/11/14 Lenin Ramirez MD [address] [place] [address] Consulting Physician Interventional Cardiology 04/06/22 Sherry George DO [address] [place] [address] Consulting Physician General Surgery 04/06/22 Андрей Pizano MD [address] Outpatient [place] [id number] [place] [address] Referring Physician General Surgery 03/22/22 Laborer Laboratory Relationship Specialty Start Date End Date Zack Olmos MD [address] [place] [address] PCP - General Family Medicine 08/11/14 Lenin Ramirez MD [address] [place] [address] Consulting Physician Interventional Cardiology 04/06/22 Sherry George DO [address] [place] [address] Consulting Physician General Surgery 04/06/22 Андрей Pizano MD [address] Outpatient [place] [id number] [place] [address] Referring Physician General Surgery 03/22/22 Laborer Laboratory Relationship Specialty Start Date End Date Zack Olmos MD [address] [place] [address] PCP - General Family Medicine 08/11/14 Lenin Ramirez MD [address] [place] [address] Consulting Physician Interventional Cardiology 04/06/22 Sherry George DO [address] [place] [address] Consulting Physician General Surgery 04/06/22 Андрей Pizano MD [address] Outpatient [place] [id number] [place] [address] Referring Physician General Surgery 03/22/22 Laborer Laboratory Relationship Specialty Start Date End Date Zack Olmos MD [address] [place] [address] PCP - General Family Medicine 08/11/14 Lenin Ramirez MD [address] [facility] [address] [place] [address] Consulting Physician Interventional Cardiology 04/06/22 Sherry George DO [address] [place] [address] Consulting Physician General Surgery 04/06/22 Андрей Pizano MD [address] Outpatient [place] [id number] [place] [address] Referring Physician General Surgery 03/22/22 Laborer Laboratory Relationship Specialty Start Date End Date Zack Olmos MD [address] [place] [address] PCP - General Family Medicine 08/11/14 Lenin Ramirez MD [address]65 [facility] [address] [place] [address] Consulting Physician Interventional Cardiology 04/06/22 Sherry George DO [address] [place] [address] Consulting Physician General Surgery 04/06/22 Андрей Pizano MD [address] Outpatient [place] [id number] [place] [address] Referring Physician General Surgery 03/22/22 Laborer Laboratory Relationship Specialty Start Date End Date Zack Olmos MD [address] [place], [place] [id number] PCP - General Family Medicine 08/11/14 Lenin Ramirez MD [address] [place] [address] Consulting Physician Interventional Cardiology 04/06/22 Sherry George DO [address] [place] [address] Consulting Physician General Surgery 04/06/22 [place] [address] [place] [address] Outpatient [facility] [place] [id number] [place] [address] Referring Physician General Surgery 03/22/22 Laborer Laboratory Relationship Specialty Start Date End Date Zack Olmos MD [address] [place], [place] [id number] PCP - General Family Medicine 08/11/14 Lenin Ramirez MD [address] [facility] [address] [place] [address] Consulting Physician Interventional Cardiology 04/06/22 Sherry George DO [address] [place] [address] Consulting Physician General Surgery 04/06/22 Андрей Pizano MD [facility] [place] [id number] [place] [address] Referring Physician General Surgery 03/22/22 Laborer Laboratory Relationship Specialty Start Date End Date Zack Olmos MD [address] [place] [address] PCP - General Family Medicine 08/11/14 Lenin Ramirez MD [address] [facility] [address] [place] [address] Consulting Physician Interventional Cardiology 04/06/22 Sherry George DO [address] [place] [address] Consulting Physician General Surgery 04/06/22 [place] [address] [place] [address] Outpatient [facility] [id number] [place] [address] Referring Physician General Surgery 03/22/22 Laborer Laboratory Relationship Specialty Start Date End Date Zack Olmos MD [address] [place] [address] PCP - General Family Medicine 08/11/14 Lenin Ramirez MD [address] [facility] [address] [place] [address] Consulting Physician Interventional Cardiology 04/06/22 Sherry George DO [address] [place] [address] Consulting Physician General Surgery 04/06/22 Андрей Pizano MD 1761 [facility] Outpatient [place] [id number] [place] [address] Referring Physician General Surgery 03/22/22 Laborer Laboratory Relationship Specialty Start Date End Date Zack Olmos MD [address] [place] [address] PCP - General Family Medicine 08/11/14 Lenin Ramirez MD [address] [facility] [address] [place] [address] Consulting Physician Interventional Cardiology 04/06/22 Sherry George DO [address] [place] [address] Consulting Physician General Surgery 04/06/22 Андрей Pizano MD 1761 [facility] Outpatient [place] [id number] [place] [address] Referring Physician General Surgery 03/22/22 Laborer Laboratory Relationship Specialty Start Date End Date Zack Olmos MD [address] [place] [address] PCP - General Family Medicine 08/11/14 Lenin Ramirez MD [address] [facility] [address] [place] [address] Consulting Physician Interventional Cardiology 04/06/22 Sherry George DO [address] [place] [address] Consulting Physician General Surgery 04/06/22 Андрей Pizano MD 1761 [facility] Outpatient [place] [id number] [place] [address] Referring Physician General Surgery 03/22/22 Laborer Laboratory Relationship Specialty Start Date End Date Zack Olmos MD [address] [place] [address] PCP - General Family Medicine 08/11/14 Lenin Ramirez MD [address] [place] [address] Consulting Physician Interventional Cardiology 04/06/22 Sherry George DO [address] [place] [address] Consulting Physician General Surgery 04/06/22 Андрей Pizano MD 1761 [facility] Outpatient [place] [id number] [place] [address] Referring Physician General Surgery 03/22/22 Laborer Laboratory Relationship Specialty Start Date End Date Zack Olmos MD [address] [place] [address] PCP - General Family Medicine 08/11/14 Lenin Ramirez MD [address] [facility] [address] [place] [address] Consulting Physician Interventional Cardiology 04/06/22 Sherry George DO [address] [place] [address] Consulting Physician General Surgery 04/06/22 Андрей Pizano MD 1761 [facility] Outpatient [place] [id number] [place] [address] Referring Physician General Surgery 03/22/22 Laborer Laboratory Relationship Specialty Start Date End Date Zack Olmos MD [address] [place] [address] PCP - General Family Medicine 08/11/14 Lenin Ramirez MD [address] [facility] [address] [place] [address] Consulting Physician Interventional Cardiology 04/06/22 Sherry George DO [address] [place] [address] Consulting Physician General Surgery 04/06/22 Андрей Pizano MD 1761 [facility] Outpatient [place] [id number] [place] [address] Referring Physician General Surgery 03/22/22 Laborer Laboratory Relationship Specialty Start Date End Date Zack Olmos MD [address] [place] [address] PCP - General Family Medicine 08/11/14 Lenin Ramirez MD [address] [facility] [address] [place] [address] Consulting Physician Interventional Cardiology 04/06/22 Sherry George DO [address] [facility] [address] [place] [address] Consulting Physician General Surgery 04/06/22 Андрей Pizano MD 1761 [facility] Outpatient [place] [id number] [place] [address] Referring Physician General Surgery 03/22/22 Laborer Laboratory Relationship Specialty Start Date End Date Zack Olmos MD [address] [place], [place] [id number] PCP - General Family Medicine 08/11/14 Lenin Ramirez MD [address] [facility] [address] [place] [address] Consulting Physician Interventional Cardiology 04/06/22 Sherry George DO [address] [place] [address] Consulting Physician General Surgery 04/06/22 Андрей Pizano MD 1761 [facility] [place] [id number] [place] [address] Referring Physician General Surgery 03/22/22 Laborer Laboratory Relationship Specialty Start Date End Date Zack Olmos MD [address] [place] [address] PCP - General Family Medicine 08/11/14 Lenin Ramirez MD [address] [facility] [address] [place] [address] Consulting Physician Interventional Cardiology 04/06/22 Sherry George DO [address] [place] [address] Consulting Physician General Surgery 04/06/22 Андрей Pizano MD [facility] [address] [address] Referring Physician General Surgery 03/22/22 FOR RECORDS [...] BE BASED ON THE PRIMARY CLINICAL RECORDS. [facility] [employer] [facility]. provides no warranty or guarantee of the accuracy or completeness of information in this document.
--- NOTE | 2023-04-26 23:28 | EDS_ITS ---
HPI History of Present Illness Chief Complaint: Shortness of Breath Narrative Narrative: 77-year-old male with history of influenza, hypertension, end-stage renal disease on dialysis, CHF, CAD, COPD recently discharged at 3:00 today for dyspnea to longterm. reports yesterday he can walk and today he could not perform anything when he got to the longterm facility. They try to get him to walk to the bed and he could not do it and it took 2 people to get him into bed. He was hypoxic for short while he had it turned his oxygen to 6 L. He states he does not specifically feel like he was any more short of breath than usual. He is weaker since he was walking yesterday. states he has been ill in and out of the hospital for the last couple of months. She states she spoke with palliative care and it was also mentioned that they could consider hospice some point in the future if is not doing better. She is opting to go to longterm today and get rehab although with the weakness she has with acute inability go there. Patient denies chest pain. Does admit to dyspnea. No fevers or chills are noted. Patient does appear to be more confused per his . [facility] Medical History Anemia Anxiety Arthritis Back pain BiPAP (biphasic positive airway pressure) dependence BPH (benign prostatic hyperplasia) Congestive heart failure (CHF) COPD (chronic obstructive pulmonary disease) Coronary artery disease involving coronary bypass graft Coronary atherosclerosis of [place] coronary artery CPAP (continuous positive airway pressure) dependence Depression Emphysema, unspecified End-stage renal disease on hemodialysis Erectile dysfunction ESRD (end stage renal disease) Former smoker GERD (gastroesophageal reflux disease) Gout High cholesterol History of atrial fibrillation History of edema History of heart attack HLD (hyperlipidemia) Hypertension Hypothyroidism Lower GI bleed Lumbar disc disease with radiculopathy Obesity On home oxygen therapy MARCELO (obstructive sleep apnea) Pleural effusion Psychosexual dysfunction with inhibited sexual excitement Sleep apnea Symptomatic anemia Home Medications allopurinol 100 mg tablet 100 mg PO DAILY GOUT 05/03/18 [History Last Taken 04/18/23] nitroglycerin 0.4 mg sublingual tablet 0.4 mg sublingual Q5-15M PRN chest pain 05/03/18 [History Last Taken Unknown] amiodarone 200 mg tablet 100 mg PO DAILY heart 11/19/20 [History Last Taken 04/18/23] rosuvastatin 10 mg tablet (Crestor) 10 mg PO QHS cholesterol 11/19/20 [History Last Taken 04/17/23] ascorbic acid (vitamin C) 500 mg capsule,extended release (Vitamin C) 500 mg PO DAILY supplement 11/23/20 [History Last Taken 04/18/23] gabapentin 100 mg capsule 200 mg PO QHS restless leg 11/04/21 [History Last Taken 04/17/23] midodrine 10 mg tablet 10 mg PO MOWEFR bp 11/04/21 [History Last Taken 03/18/22] levothyroxine 50 mcg tablet 50 mcg PO DAILY thyroid 12/13/21 [History Last Taken 03/18/22] carvedilol 3.125 mg tablet 3.125 mg PO SuTuThSa@1000 blood pressure #0 tabs 03/23/22 [Rx Last Taken 04/18/23] guaifenesin 600 mg tablet, extended release 12 hr (Mucinex) 600 mg PO BID cough 06/07/22 [History Last Taken Unknown] albuterol sulfate 2.5 mg/3 mL (0.083 %) solution for nebulization 2.5 mg (3 mL) inhalation 4X/DAY PRN PRN COPD #180 mL 04/04/23 [Rx Last Taken 04/18/23] aspirin 81 mg tablet,delayed release (Adult Aspirin Regimen) 81 mg PO DAILY 04/04/23 [History Last Taken 04/18/23] fluticasone propionate 50 mcg/actuation nasal spray,suspension 2 spray int ranasal DAILY PRN ALLERGIES 04/04/23 [History Last Taken Unknown] glycopyrrolate 9 mcg-formoterol 4.8 mcg HFA aerosol inhaler (Bevespi Aerosphere) 2 puff inhalation BID SOB 04/04/23 [History Last Taken Unknown] sertraline 100 mg tablet 100 mg PO DAILY mental health 04/04/23 [History Last Taken Unknown] vitamin B complex-vitamin C-folic acid 0.8 mg tablet (Tawanna-Laura) 1 tab PO Q24H vitamin 04/18/23 [History Last Taken Unknown] oseltamivir 30 mg capsule 30 mg PO 2200 flu #10 caps 04/20/23 [Rx Last Taken Unknown] fludrocortisone 0.1 mg tablet 0.1 mg PO BREAKFAST #0 tabs 02/14/24 [Rx Last Taken Unknown] Allergy/AdvReac Type Severity Reaction Status Date / Time Penicillins Allergy Severe Rash, 105 Verified 04/26/23 19:16 temp amlodipine Allergy itching Verified 04/26/23 19:16 and rash prednisone Allergy Other Verified 04/26/23 19:16 indomethacin AdvReac Intermediate Other Verified 04/26/23 19:16 ropinirole AdvReac Intermediate Other Verified 04/26/23 19:16 trazodone AdvReac Intermediate Other Verified 04/26/23 19:16 aspirin AdvReac Mild rash Verified 04/26/23 19:16 Family History Mother , 84 y.o. Hypertension CVA (cerebral vascular accident) Father , 70 y.o. Heart disease Hodgkin disease Sister , 72 y.o. Heart disease Surgical History H/O left cataract extraction History of cardiac catheterization History of colectomy (~2022) History of colonoscopy History of coronary artery stent placement History of heart artery stent History of heart surgery History of knee replacement procedure of left knee History of open heart surgery (~08/2020) History of total right knee replacement S/P arteriovenous (AV) fistula repair (~12/2020) Social History household members: spouse housing: house pets and animals: No Smoking Status: Former smoker second hand exposure: No alcohol intake: current alcohol intake frequency: holidays/special occasions only EXAM Physical Exam Const Vital Signs: 04/26/23 19:16 04/26/23 19:16 04/26/23 21:06 Temperature 97.9 F Temperature Source Temporal Pulse Rate 108 H 101 H Respiratory Rate 21 H 19 H Respiratory Effort Short of Breath Respiratory Depth Normal Respiratory Pattern Normal Blood Pressure 99/62 125/61 H Blood Pressure Mean 74 82 Pulse Ox 95 95 Oxygen Delivery Method Nasal Cannula Nasal Cannula Nasal Cannula Oxygen Flow Rate (L/min) 3 3 3 04/26/23 21:31 04/26/23 21:52 04/26/23 22:00 Temperature 97.7 F L Temperature Source Oral Pulse Rate 106 H 105 H Respiratory Rate 21 H 19 H Respiratory Effort Respiratory Depth Respiratory Pattern Blood Pressure 112/56 L 104/59 L Blood Pressure Mean 74 74 Pulse Ox 93 93 85 Oxygen Delivery Method Nasal Cannula Nasal Cannula Nasal Cannula Oxygen Flow Rate (L/min) 3 3 3 General Appearance ED: Negative for pallor HEENT Reports normocephalic, head/scalp atraumatic and moist mucous membranes Eyes PERRL and EOMs intact bilaterally Neck no lymphadenopathy and supple Chest Wall inspection of chest normal and palpation of chest normal Resp Resp Narrative: Tachypneic Cardio Rate: bradycardia GI normal to inspection, nondistended, normoactive bowel sounds and non-distended Auscultation: normoactive bowel sounds Palpation: soft Narrative: Deferred Extremity General Extremety ED: Negative for tenderness Neuro oriented x3 and CN's II-XII intact bilaterally Sensorium / Orientation: alert Motor Exam: general weakness Psych Psych Narrative: Confused more than baseline Attitude: No agitated Skin no rashes or lesions noted and no wounds General Skin Exam: Negative for jaundice or pallor MDM MDM MDM Narrative Medical decision making narrative: Patient presenting with confusion, debility, shortness of breath. Has been hypoxic at the longterm facility just up today. Blood work was obtained and his CBC shows a normal white blood cell count 9.9. Hemoglobin 10.9. Platelets are 115 and therefore low but this is also at baseline. Renal function is at baseline for end-stage renal disease on dialysis. Electrolytes are normal. High-sensitivity troponin is 118 which is higher than previously 8 although the patient was hypoxic for short while with unclear etiology. He denies any chest pain. BNP 4048 and nearly as high as it was when he was recently admitted. This was discussed at length with the patient's who does not feel he can go back to longterm and we discussed at length palliative care versus hospice going forward as needed and she is amenable to a consult for this. For tonight we will have admitted to the hospitalist. He has been on high flow oxygen down to the ER likely needs CPAP at night. Impression: 1. Hypoxic respiratory failure 2. CHF 3. elevated troponin 4. Debility 5. Confusion Lab Data Attestation: I reviewed the patient's lab results. Labs: Laboratory Results - last 24 hr 04/26/23 04/26/23 19:47 20:15 WBC 9.1 RBC 3.25 L Hgb 10.9 L Hct 34.6 L MCV 106.5 H MCH 33.5 H MCHC 31.5 L RDW Std Deviation 58.7 H RDW Coeff of Nick 15.1 H Plt Count 115 L MPV 10.2 Immature Gran % (Auto) 0.500 Neut % (Auto) 88.4 H Lymph % (Auto) 3.2 L [place] % (Auto) 7.5 Eos % (Auto) 0.2 Baso % (Auto) 0.2 Absolute Neuts (auto) 8.0 H Absolute Lymphs (auto) 0.29 L Nucleated RBC % 0.4 Differential Comment SCANNED Sodium Cancelled 136 Potassium Cancelled 4.3 Chloride Cancelled 99 Carbon Dioxide Cancelled 29.0 Anion Gap Cancelled 8 BUN Cancelled 63 H Creatinine Cancelled 4.29 H Estim Creat Clear Calc Cancelled 15.41 Est GFR (MDRD) Af Amer Cancelled 17 L Est GFR (MDRD) Non-Af Cancelled 14 L BUN/Creatinine Ratio Cancelled 14.7 Glucose Cancelled 127 H Calcium Cancelled 9.4 Troponin I High Sens Cancelled 118 H B-Natriuretic Peptide 4048.8 H Radiography Diagnostic Testing: Clinical Impression(s) from Imaging Studies Chest X-Ray 04/26/23 19:55 IMPRESSION: Small left pleural effusion and left lower lobe consolidation. Mild right basilar atelectasis Electronically Signed: Chu Celestin MD at 20:34 EST Reading Location ID and State: [facility] / [place] Tel , Service support , Discharge Plan Disposition Disposition: Acute Care Hospital [facility] Discharge Date/Time: 04/26/23 23:54
--- NOTE | 2023-04-26 23:33 | ED.RN ---
[facility] updated on admission
[2023-04-27] VITALS (13 sets, daily range): BP systolic 94–139; BP diastolic 47–76; PULSE 89–114; RESP 17–22; TEMP 36.5–37; O2SAT 91–100; BMI 28.2
--- NOTE | 2023-04-27 01:04 | CPS ---
Patient on home bipap. 10L O2 bled in to maintain sats> 90% *Usually wears 3-6L*
[2023-04-27] MEDS: Levothyroxine 50 MCG Tablet PO (06:18)
[2023-04-27 07:46] LABS: Absolute Lymphocyte Count 0.25 X10^3/uL (0.83-4.51); Absolute Neutrophil Count 15.7 X10^3/uL (2.0-7.7); Basophil# 0.03 X10^3/uL; Basophil% 0.2 % (0-1); Hematocrit 33.6 % (40-54); Hemoglobin 10.5 g/dL (13.0-16.5); Lymphocyte # 0.25 X10^3/ul (0.83-4.51); Lymphocyte % 1.5 % (19-41); Mean Corp Hgb Conc 31.3 g/dL (32-36); Mean Corpuscular Hgb 33.7 pg (27.0-32.0); Mean Corpuscular Volume 107.7 fL (80-94); Mean Platelet Vol. 9.6 fl (6.2-12.0); Monocyte# 0.76 X10^3/uL; Monocyte% 4.5 % (0-10); NRBC Flagged by Analyzer 0.2 % (0-5); Neutrophil # 15.65 X10^3/uL (2.7-7.7); Neutrophil % 93.1 % (47-70); POSITIVE DIFFERENTIAL YES; POSITIVE MORPHOLOGY YES; Platelet Count 138 K/mm3 (150-450); RBC Distribution Width CV 15.1 % (11.6-14.6); RBC Distribution Width SD 59.9 fl (35.1-43.9); Red Blood Count 3.12 M/mm3 (4.6-6.2); White Blood Count 16.8 K/mm3 (4.4-11.0)
[2023-04-27 07:51] LABS: Differential Indicated SCAN CRITERIA MET
--- NOTE | 2023-04-27 08:18 | PCM.PN.HOSP ---
Reason for Visit Reason for Visit: Diagnoses Difficulty in walking, not elsewhere classified (04/26/23) Weakness (04/26/23) Personal history of other diseases of the respiratory system (04/26/23) Subjective Subjective Noted be weak at the nursing home facility. Patient's was noted to him before he left. Patient is awake now and conversant but dozes off. Objective Data Objective Data Vital Signs: Vital Signs Temp Pulse Resp BP Pulse Ox O2 Del Method O2 Flow Rate 36.5 C L 99 20 H 105/68 98 High Flow 8 04/27/23 06:23 04/27/23 06:23 04/27/23 06:23 04/27/23 06:23 04/27/23 06:23 04/27/23 06:23 04/27/23 06:23 Oxygen Flow Rate (L/min) 8 Oxygen Delivery Method High Flow Weight: 81.6 kg Body Mass Index (BMI) 28.2 Lab / Micro Data 04/27/23 06:52 04/27/23 06:52 Labs: Laboratory Results - last 24 hr 04/26/23 19:47: WBC 9.1, RBC 3.25 L, Hgb 10.9 L, Hct 34.6 L, MCV 106.5 H, MCH 33.5 H, MCHC 31.5 L, RDW Std Deviation 58.7 H, RDW Coeff of Nick 15.1 H, Plt Count 115 L, MPV 10.2, Immature Gran % (Auto) 0.500, Neut % (Auto) 88.4 H, Lymph % (Auto) 3.2 L, [place] % (Auto) 7.5, Eos % (Auto) 0.2, Baso % (Auto) 0.2, Absolute Neuts (auto) 8.0 H, Absolute Lymphs (auto) 0.29 L, Nucleated RBC % 0.4, Differential Comment SCANNED, Sodium Cancelled, Potassium Cancelled, Chloride Cancelled, Carbon Dioxide Cancelled, Anion Gap Cancelled, BUN Cancelled, Creatinine Cancelled, Estim Creat Clear Calc Cancelled, Est GFR (MDRD) Af Amer Cancelled, Est GFR (MDRD) Non-Af Cancelled, BUN/Creatinine Ratio Cancelled, Glucose Cancelled, Calcium Cancelled, Troponin I High Sens Cancelled, B-Natriuretic Peptide 4048.8 H 04/26/23 20:15: Sodium 136, Potassium 4.3, Chloride 99, Carbon Dioxide 29.0, Anion Gap 8, BUN 63 H, Creatinine 4.29 H, Estim Creat Clear Calc 15.41, Est GFR (MDRD) Af Amer 17 L, Est GFR (MDRD) Non-Af 14 L, BUN/Creatinine Ratio 14.7, Glucose 127 H, Calcium 9.4, Troponin I High Sens 118 H 04/27/23 06:52: WBC 16.8 H, RBC 3.12 L, Hgb 10.5 L, Hct 33.6 L, MCV 107.7 H, MCH 33.7 H, MCHC 31.3 L, RDW Std Deviation 59.9 H, RDW Coeff of Nick 15.1 H, Plt Count 138 L, MPV 9.6, Immature Gran % (Auto) 0.700, Neut % (Auto) 93.1 H, Lymph % (Auto) 1.5 L, [place] % (Auto) 4.5, Eos % (Auto) 0.0, Baso % (Auto) 0.2, Absolute Neuts (auto) 15.7 H, Absolute Lymphs (auto) 0.25 L, Nucleated RBC % 0.2 Micro: Microbiology 04/26/23 19:48 Mucosa - Nose SARS-CoV-2, Influenza & RSV (PCR) - Final Influenzae A Radiography Diagnostic Testing: Radiology Impression Chest X-Ray 04/26/23 19:55 IMPRESSION: Small left pleural effusion and left lower lobe consolidation. Mild right basilar atelectasis Electronically Signed: Chu Celestin MD at 20:34 EST Reading Location ID and State: [facility] / [place] Tel , Service support , Physical Exam Const alert and no apparent distress Constitutional Narrative: Listless. Not as alert as he was yesterday when I had seen him. Resp normal respiratory effort, no retractions, no use of accessory muscles and clear to auscultation bilaterally Cardio regular rate, regular rhythm, S1 normal heart sound and S2 normal heart sound GI normal to inspection, nondistended, normoactive bowel sounds, soft to palpation, non-tender and non-distended Assessment & Plan Assessment/Plan (1) Generalized weakness: (2) Unable to ambulate: (3) History of influenza: PLAN: Plan Generalized Weakness Patient was just discharged yesterday and went to the facility only to be sent back because he was the more confused and very weak. PT OT Patient is weak and has a baseline poor performance status. DC gabapentin. Unclear if this is remaining in system causing be encephalopathic and such as this. Discussed with the patient's , the patient was dependent but she was able to help him at home so I do not feel the patient is hospice appropriate at this time. Patient did. Well yesterday as well as a day before but was notably weak. I do feel the patient could benefit from further rehab once he is more medically stable. Did discuss with nephrology who will try to write him a little bit longer. Is unclear if he is actually uremic or not but they will try the dialysis on the with a longer run time. Chronic conditions essential hypertension - Continue home medications as previous plus give prn IV hydralazine for systolic blood pressure > 160 mmHg. Hyperlipidemia - Resume statin. Hypothyroidism - Continue Synthroid. Obesity; with BMI; of 30 this admission - Weight loss will be recommended. ESRD on HD; on Midodrine and Fludrocortisone for hypotension during HD - Noted. Chronic atrial fibrillation - Stable. COPD; with chronic hypoxic respiratory failure on 3.5 L home O2 - Stable. Continue current regimen. MARCELO; on CPAP - Stable. CAD; s/p CABG - Noted. History of CHF - Stable. Chronic anemia - Stable. BPH - Stable. depression - Current treatment to continue. Gout - Stable with no evidence of acute flare. DVT prophylaxis - Heparin 5,000 units sq BID. Patient not hospice appropriate hospice consult is canceled. Anticipated length of stay greater than 48 hours. Charges/Coding Visit Charges Inpatient E&M: 57490 Subs Hosp L2
[2023-04-27 08:29] LABS: Anion Gap 8 (5-15); BUN 69 mg/dL (7-18); BUN/Creat Ratio 14.1 RATIO (10-20); Calcium,Total 9.5 mg/dL (8.5-10.1); Chloride 100 mmol/L (98-107); Creatinine, Serum 4.89 mg/dL (0.70-1.30); EST Glomerular Filtration Rate 12 mL/min (>60); Est Glom Filt Rate - Afr Amer 15 mL/min (>60); Estimated Creatinine Clearance 13.14 ml/min; Glucose 104 mg/dL (74-106); Potassium 4.4 mmol/L (3.5-5.1); Sodium Level 136 mmol/L (136-145); Thyroid Stim Hormone (TSH) 1.76 uIU/mL (0.358-3.74)
[2023-04-27] MEDS: guaiFENesin 600 MG Tablet PO ×2 (09:35→20:37)
[2023-04-27] MEDS: Vitamin B Comp W-C Capsule 1 CAP PO (09:35)
[2023-04-27] MEDS: Ascorbic Acid 500 MG Tablet PO (09:35)
[2023-04-27] MEDS: Sertraline 100 MG Tablet PO (09:35)
[2023-04-27] MEDS: Allopurinol 100 MG Tablet PO (09:36)
[2023-04-27] MEDS: Nystatin Powder 15gm Bottle 1 APPLIC TOPICAL ×2 (09:36→20:37)
[2023-04-27] MEDS: Fludrocortisone Acetate 0.1 MG Tablet 0.100000000000000006 MG PO (09:36)
[2023-04-27] MEDS: Heparin Injection (Vial) 5,000 UNIT/ML VIAL 5000 UNIT SC ×2 (09:37→20:36)
[2023-04-27] MEDS: Aspirin E.C. 81 MG Tablet PO (09:37)
[2023-04-27] MEDS: Amiodarone 200 MG Tablet 100 MG PO (09:38)
--- NOTE | 2023-04-27 09:53 | NURSING ---
pt leaning to the Left. here and says that that is normal for him. Pt also exhibits Lt facial droop. Pt very weak and is able to move Lt arm. This RN called Adamaris RN, Charge nurse whom had Dr. Soliman come see pt. Dr. Soliman assessing pt and talking with . Blood sugar is 104. Pt was also having trouble swallowing pills. I started doing one at a time which at first he was fine but then at the end, even with applesauce he coughed a few times and unable to hold the water in his mouth-dribbled out d/t cough.
[2023-04-27 10:20] LABS: Bedside Glucose 104 mg/dL (74-106)
--- NOTE | 2023-04-27 11:57 | CASEMGMT ---
Social Work Pt was admitted to [facility] on 04/18-04/20 and returned home with and resumption of services with [facility] for [facility] to monitor wound. Pt readmitted to [facility] on 04/22-04/26 and discharged to [facility] for skilled rehab stay. Pt readmitted to [facility] on evening of 04/26 as pt was confused, very weak, not able to ambulate which he was doing while in the hospital, and oxygen levels were low. SW met with pt and and introduced self and role of SW. Pt is sleeping throughout conversation. Pt's providing information. Pt has been on dialysis for the last two years. Pt goes to [facility] at 0915. Pt was on hospice services, is uncertain which company, over a year ago and it was revoked when pt needed blood transfusions and he could not get while on hospice. states pt was not enrolled with hospice for long. Pt currently has Palliative Services with [facility] in [place]. H&P indicates hospice referral is warranted. SW spoke with pt's regarding this. SW educated pt's on discharge options including return to [facility] for skilled rehab, return to [facility] private pay with hospice services, and return home with hospice services. Pt's is uncertain of best option at this time. She would like time for the physicians to examine pt and determine plan going forward. Pt's is not ready for hospice consult at this time but is open to consider it in the future if pt does not improve during course of care. SW updated physician on conversation with pt's and physician agreeable that hospice referral will not be made at this time. MEE will continue to follow for appropriate discharge planning. DINORA Au
--- NOTE | 2023-04-27 14:39 | CHAPLAIN ---
Type of Pastoral Visit _x__ Initial Visit ___ Follow-up Visit ___ On-call Visit ___ General Patient Visit ___ Spiritual Assessment ___ Family Conference ___ Bereavement ___ Rapid Response ___ Code Blue ___ Other (describe below) Pastoral Care Referral From ___ Patient _x__ Family ___ Nurse ___ Physician ___ Tool Lathe Operator ___ Visitor Services Coordinator ___ Other (describe below) Sacrament/Intervention _x__ Active listening ___ Anointing ___ Rastafari ___ Bereavement ___ Communion ___ Tanisha exploration ___ ___ Life review _x__ Prayer ___ Reconciliation ___ Sacrament of Sick _x__ Supportive presence ___ Wedding ___ Other (describe below) Pastoral Comments patient is sleeping and does not awaken to his name; spouse is at bedside and is offered support; spouse talks about pt's decline, uncertainty of illness and what the next steps should be; spouse is welcoming of prayer and in particular for answers and direction; both are members of a local [employer]; offer of ongoing support given
--- NOTE | 2023-04-27 14:58 | CASEMGMT ---
Met with?patient and his to complete MARKHAM form. MARKHAM form explained to both who voiced understanding and signed form. Original form placed in pt?s chart and copy provided to?patient. Mayte Tenorio, Discharge Planning Asst
--- NOTE | 2023-04-27 16:42 | NURSING ---
Addendum entered by Sho Samayoa 04/27/23 17:03: Dr. Soliman called back and informed of what happened with patient attempted to get up to chair. Dr. Soliman does not want any new orders at this time. Original Note: At approximately 1600 today pt was wanting to get up to chair for a bit. This RN with 2 other CATHODE MAKER's assistance attempted to get pt up. Pt sat on edge of bed. A wheeled walked was obtained for pt and given to him. Pt sat on edge of bed and went to grab handles on walker and could only grasp the handles for several seconds before both arms slammed down beside him and he leaned forward with his head down. Pt did another 2 times. The decision was made by this RN not to get pt up in chair and lay him back down. This RN called Adamaris, Charge Nurse and both of us did a Neuro assessment. Dr. Soliman was texted twice last one being 1629. Pt just got done working with speech therapy and S.T thinks pt may be silently aspirating and to keep him NPO except ice chips.
[2023-04-27] MEDS: Ipratropium/Albuterol Sulfate 3 ML AMPUL.NEB INHALATION (19:21)
[2023-04-27] MEDS: Oseltamivir Phosphate 30 MG Capsule PO (20:36)
[2023-04-27] MEDS: Menthol/Lanolin/Calamine/Znox 113 GM Tube 1 APPLIC TOPICAL (20:37)
[2023-04-27] MEDS: Atorvastatin Calcium 20 MG Tablet PO (20:37)
[2023-04-28] VITALS (20 sets, daily range): BP systolic 88–288; BP diastolic 40–62; PULSE 89–128; RESP 14–21; TEMP 36.6–37.2; O2SAT 94–100; BMI 23.1; BMI 22.2
[2023-04-28] MEDS: Levothyroxine 50 MCG Tablet PO (05:07)
[2023-04-28] MEDS: Acetaminophen 325 MG Tablet 650 MG PO (05:08)
--- NOTE | 2023-04-28 06:52 | PN.HOSP_ITS ---
Reason for Visit Reason for Visit: Diagnoses Difficulty in walking, not elsewhere classified (04/27/23) Weakness (04/27/23) Personal history of other diseases of the respiratory system (04/27/23) Subjective Subjective Feeling better. Objective Data Objective Data Vital Signs: Vital Signs Temp Pulse Resp BP Pulse Ox O2 Del Method O2 Flow Rate 37.2 C 102 H 18 90/40 L 94 High Flow 4 04/28/23 02:21 04/28/23 02:21 04/28/23 02:21 04/28/23 02:21 04/28/23 02:21 04/28/23 03:15 04/28/23 03:15 Oxygen Flow Rate (L/min) 4 Oxygen Delivery Method High Flow Weight: 67 kg Body Mass Index (BMI) 23.1 Intake & Output: Intake and Output for Last 24 Hours 04/26/23 04/27/23 04/28/23 23:59 23:59 23:59 Intake Total 100 / 100 Output Total 0 / 0 Balance 100 / 100 Lab / Micro Data 04/28/23 07:55 04/28/23 07:55 Labs: Laboratory Results - last 24 hr 04/27/23 06:52: WBC 16.8 H, RBC 3.12 L, Hgb 10.5 L, Hct 33.6 L, MCV 107.7 H, MCH 33.7 H, MCHC 31.3 L, RDW Std Deviation 59.9 H, RDW Coeff of Nick 15.1 H, Plt Count 138 L, MPV 9.6, Immature Gran % (Auto) 0.700, Neut % (Auto) 93.1 H, Lymph % (Auto) 1.5 L, [place] % (Auto) 4.5, Eos % (Auto) 0.0, Baso % (Auto) 0.2, Absolute Neuts (auto) 15.7 H, Absolute Lymphs (auto) 0.25 L, Nucleated RBC % 0.2, Sodium 136, Potassium 4.4, Chloride 100, Carbon Dioxide 28.0, Anion Gap 8, BUN 69 H, Creatinine 4.89 H, Estim Creat Clear Calc 13.14, Est GFR (MDRD) Af Amer 15 L, Est GFR (MDRD) Non-Af 12 L, BUN/Creatinine Ratio 14.1, Glucose 104, Calcium 9.5, TSH 1.76 04/27/23 09:53: POC Glucose 104 Micro: Microbiology 04/26/23 19:48 Mucosa - Nose SARS-CoV-2, Influenza & RSV (PCR) - Final Influenzae A Physical Exam Const alert and no apparent distress HEENT head/scalp atraumatic and moist oral mucous membranes Resp normal respiratory effort, no retractions, no use of accessory muscles and clear to auscultation bilaterally Extremity normal to inspection Assessment & Plan Assessment/Plan (1) Generalized weakness: (2) Unable to ambulate: (3) History of influenza: PLAN: Plan Generalized Weakness * Improved. Continue to hold gabapentin. Patient was just discharged yesterday and went to the facility only to be sent back because he was the more confused and very weak. * PT OT * Patient is weak and has a baseline poor performance status. * DC gabapentin. Unclear if this is remaining in system causing be encephalopathic and such as this. * Discussed with the patient's , the patient was dependent but she was able to help him at home so I do not feel the patient is hospice appropriate at this time. Patient did. Well yesterday as well as a day before but was notably weak. I do feel the patient could benefit from further rehab once he is more medically stable. Did discuss with nephrology who will try to write him a little bit longer. Is unclear if he is actually uremic or not but they will try the dialysis on the with a longer run time. Encephalopathy * unclear type, but concerning it could be toxic AND metabolic. Toxic possibly from gabapentin and metabolic perhaps from uremia * Pt to have HD today. Gabapentin has been held. Chronic conditions * essential hypertension - Continue home medications as previous plus give prn IV hydralazine for systolic blood pressure > 160 mmHg. * Hyperlipidemia - Resume statin. * Hypothyroidism - Continue Synthroid. * Obesity; with BMI; of 30 this admission - Weight loss will be recommended. * ESRD on HD; on Midodrine and Fludrocortisone for hypotension during HD - Noted. * Chronic atrial fibrillation - Stable. * COPD; with chronic hypoxic respiratory failure on 3.5 L home O2 - Stable. Continue current regimen. * MARCELO; on CPAP - Stable. * CAD; s/p CABG - Noted. * History of CHF - Stable. * Chronic anemia - Stable. * BPH - Stable. * depression - Current treatment to continue. * Gout - Stable with no evidence of acute flare. DVT prophylaxis - Heparin 5,000 units sq BID. Patient not hospice appropriate hospice consult is canceled. Pt already established with palliative care prior to arrival. Anticipated length of stay greater than 48 hours. Charges/Coding Visit Charges Inpatient E&M: 89575 Subs Hosp L2
[2023-04-28] MEDS: Ipratropium/Albuterol Sulfate 3 ML AMPUL.NEB INHALATION ×3 (07:15→19:01)
[2023-04-28] MEDS: PureFlow B 3K Dialysis Soln 1 BAG 6 BAG PF (07:49)
[2023-04-28] MEDS: 0.9% Normal Saline 1,000 ML IV.SOLN. 1000 ML OPERA.SITE (07:49)
--- NOTE | 2023-04-28 07:51 | CASEMGMT ---
Pt is confirmed active with Palliative per Juancho Bond
[2023-04-28 08:05] LABS: Absolute Lymphocyte Count 0.23 X10^3/uL (0.83-4.51); Absolute Neutrophil Count 10.2 X10^3/uL (2.0-7.7); Basophil# 0.01 X10^3/uL; Basophil% 0.1 % (0-1); Hematocrit 29.2 % (40-54); Hemoglobin 9.4 g/dL (13.0-16.5); Lymphocyte # 0.23 X10^3/ul (0.83-4.51); Lymphocyte % 2.1 % (19-41); Mean Corp Hgb Conc 32.2 g/dL (32-36); Mean Corpuscular Hgb 34.1 pg (27.0-32.0); Mean Corpuscular Volume 105.8 fL (80-94); Mean Platelet Vol. 9.8 fl (6.2-12.0); Monocyte# 0.41 X10^3/uL; Monocyte% 3.8 % (0-10); NRBC Flagged by Analyzer 0 % (0-5); Neutrophil # 10.15 X10^3/uL (2.7-7.7); Neutrophil % 93.6 % (47-70); POSITIVE DIFFERENTIAL YES; Platelet Count 113 K/mm3 (150-450); RBC Distribution Width CV 15.1 % (11.6-14.6); RBC Distribution Width SD 58.9 fl (35.1-43.9); Red Blood Count 2.76 M/mm3 (4.6-6.2); White Blood Count 10.8 K/mm3 (4.4-11.0)
[2023-04-28 11:45] LABS: Anion Gap 9 (5-15); BUN 79 mg/dL (7-18); BUN/Creat Ratio 15.3 RATIO (10-20); Calcium,Total 9.2 mg/dL (8.5-10.1); Chloride 102 mmol/L (98-107); Creatinine, Serum 5.15 mg/dL (0.70-1.30); EST Glomerular Filtration Rate 12 mL/min (>60); Est Glom Filt Rate - Afr Amer 14 mL/min (>60); Estimated Creatinine Clearance 11.12 ml/min; Glucose 88 mg/dL (74-106); Potassium 4.5 mmol/L (3.5-5.1); Sodium Level 137 mmol/L (136-145)
[2023-04-28] MEDS: Midodrine HCl 5 MG Tablet 10 MG PO (12:20)
[2023-04-28] MEDS: Nystatin Powder 15gm Bottle 1 APPLIC TOPICAL ×2 (12:21→23:09)
[2023-04-28] MEDS: Heparin Injection (Vial) 5,000 UNIT/ML VIAL 5000 UNIT SC ×2 (12:21→23:06)
[2023-04-28] MEDS: Aspirin E.C. 81 MG Tablet PO (12:22)
[2023-04-28] MEDS: Amiodarone 200 MG Tablet 100 MG PO (12:24)
--- NOTE | 2023-04-28 13:01 | SP.MBSS_ITS ---
Modified Barium Swallow Patient Information Study Date: 04/28/23 Study Time: 13:30 Direct Billable Minutes: 120 Total Minutes procedure & reportin Diagnosis: Anemia in CKD N18.9; Hx of COPD Referring Physician: Andrey Soliman Reason for Referral: Objectively assess swallow function, assess risk for aspiration, and determine recommendations for least restrictive diet textures and compensatory strategies to improve safety of swallow. Medical History: PMH: HTN, HLD, hypothyroidism, obesity, ESRD, chronic A fib, COPD with chronic hypoxic respiratory failure on 3.5 L home O2, MARCELO, CAD s/p CABG, history of CHF, MARCELO on CPAP, chronic anemia, BPH, depression, gout and recent readmission here from 04/22/23-04/26/23 for acute influenza A, Atrial Fibrillation with RVR, and generalized weakness. He re-presented to [facility] ED 04/26/23 with SOB and confusion. He was admitted for management of generalized weakness, inability to ambulate, and hx of influenza. ST consulted d/t swallowing difficulty - made NPO by nursing until ST dysphagia evaluation 04/27/23. BUSINESS AND FINANCIAL COUNSEL recommended NPO with ice chips after oral care. Of note, during BSE he was observed to have L facial droop, impaired labial seal, and wet coughing with certain thin liquids trials. He was referred for MBSS to further assess concerns for aspiration. Current Diet Ordered: NPO with ice chips Penetration-Aspiration Scale Penetration-Aspiration Scale: OBJECTIVE ASSESSMENT OF SWALLOW FUNCTION (QUANTITATIVE ? PER TRIAL): PENETRATION / ASPIRATION SCALE (PERAZA): 1 = does not enter airway 2 = enters airway/above vocal folds/ejected 3 = enters airway/above vocal folds/not ejected 4 = enters airway/contacts vocal folds/ejected 5 = enters airway/contacts vocal folds/not ejected 6 = enters airway/below vocal folds/ejected 7 = enters airway/below vocal folds/not ejected despite effort 8 = enters airway/below vocal folds/no effort VIDEOFLOROSCOPIC SCALE SCORE (PERAZA): Grade I = aspiration of material that has penetrated into the laryngeal vestibule, intact cough reflex Grade II = aspiration < 10 % of the bolus, intact cough reflex Grade III = aspiration of < 10 % of the bolus, reduced cough reflex or aspiration of > 10 % of the bolus, intact cough reflex Grade IV = aspiration of > 10 % of the bolus, reduced cough reflex Penetration-Aspiration Scale Score Thin Liquid via teaspoon: Result: 1= does not enter airway Thin Liquid via teaspoon Trial 2: Result: 1= does not enter airway Thin Liquid via small single sip: cup: Result: 2= enter airway/above vocal folds/ejected [place] Thick Liquid via small single sip: cup: Result: 1= does not enter airway Pudding via teaspoon: Result: 1= does not enter airway Comment: Esophageal screen - Mild retention in lower esophagus. / Cookie: Result: 1= does not enter airway Thin Liquid via sequential sips:straw: Result: 5= enters airways/contacts vocal folds/not ejected Thin Liquid via single sip: straw: Result: 5= enters airways/contacts vocal folds/not ejected Thin Liquid via small single sip: cup Trial 2: Result: 2= enter airway/above vocal folds/ejected Oral Phase Labial Seal: Escape beyond mid-chin Tongue Control During Bolus Hold: Posterior escape of greater than half of bolus Bolus Preparation/Mastication: Disorganized chewing/mashing with solid pieces of bolus unchewed Bolus Transport/Lingual Motion: Repetitive/disorganized tongue motion Oral Residue: Residue collection on oral structures Pharyngeal Phase Initiation of Pharyngeal Swallow: Bolus head in pyriforms Soft Palate Elevation: No bolus between soft palate and pharyngeal wall Laryngeal Elevation: Partial superior movement thyroid cart/partial apprx aryt- epig petiole Anterior Hyoid Excursion: Partial anterior movement Epiglottic Movement: Partial inversion (inconsistent) Laryngeal Vestibule Closure at Height of Swallow: Incomplete; narrow column of air/contrast in laryngeal vestibule Pharyngeal Stripping Wave: Present - diminished Pharyngoesophageal Segment Opening: Parital distension and partial duration; parital obstruction of flow Tongue Base Retraction: Narrow column of contrast between tongue base & post. pharyngeal wall Pharyngeal Residue: Collection of residue within or on pharyngeal structures Esophageal Phase Esophageal Clearance: Esophageal retention Diagnosis/Impression Diagnosis: Mild-moderate oropharyngeal dysphagia R13.12 Impression: The patient required total feeding assistance from the BUSINESS AND FINANCIAL COUNSEL due to bilateral UE weakness. He continues with confusion and required max verbal and visual cues to maintain in optimal positioning to capture images of his swallow. Cannot definitively rule out aspiration during this study due to patient's body habitus and due to his difficulty maintaining optimal posture for imaging. The oral phase is primarily marked by... -Decreased bolus control with >1/2 of the bolus spilling posteriorly to the pharynx prior to swallow onset observed with thin liquids especially. -Repetitive tongue motion for A-P transport. -Mild oral residue of un-chewed cookie in the oral cavity after the swallow, which mostly cleared with liquid washes that followed. -Prolonged mastication with small piece of cookie appearing un-chewed. He would benefit from soft and bite size textures. The pharyngeal phase is primarily marked by... -Decreased airway closure during the swallow due to decreased anterior hyoid excursion, inconsistent epiglottic inversion, and decreased laryngeal elevation. -Trace-mild pharyngeal residues after the swallow with mildly decreased tongue base retraction, UES opening/duration, and pharyngeal stripping wave. -Laryngeal penetration of thin liquids via cup, which fully ejected from the laryngeal vestibule after the swallow. Deep laryngeal penetration without eject ion of thin liquids via straw, placing him at increased risk for aspiration. Recommendations Diet: Mechanical Soft Textures (Soft and bite size textures IDDSI Level 6) and Thin Liquids Comment: Oral care after meals Compensatory Strategies: Small Bites, Small Sips, No Straws, Alternate bites/solids and sips/liquids (Check for pocketing), Sitting upright and Remain sitting upright for 30 minutes after PO intake Supervision: Total Feed Recommend Repeat Modified Barium Swallow: TBD Need for Skilled Speech Therapy Services: Yes Comment: -Train the patient and staff in use of strategies to decrease risk for aspiration. -Ongoing assessment of diet tolerance of recommended textures. -If improved ability for command following, consider training the patient oropharyngeal exercise program to improve swallow function. Education Completed: 1. Described result of evaluation., 4. Family/caregivers understand evaluation & agree w/ goals & tx plan. and 7. Pt requires further education on strategies & risks. Status Active ST Patient: Active Contact Information [facility] Speech Therapy:: Randi Montes De Oca M.A. CCC-BUSINESS AND FINANCIAL COUNSEL? Speech-Language Pathologist?? [facility] [address]?? [place] [address]?? [email or web address]?? [phone]??
--- NOTE | 2023-04-28 14:08 | CASEMGMT ---
Discharge Planning Updates sent to [facility] via [facility]. Mayte Tenorio, Discharge Planning Asst.
--- NOTE | 2023-04-28 16:39 | CASEMGMT ---
Social Work [facility] is able to take pt back when he is medically ready. SW spoke with pt's and updated her on this. Pt's is appreciative and plans for pt to return to [facility] under skilled level of care when medically ready. DINORA Au
--- NOTE | 2023-04-28 18:23 | PCM.PN.REN ---
Subjective Subjective Following for ESRD. The patient feels better today. He denies chest pain, nausea or vomiting. He has dyspnea especially with exertion although overall improved. Objective Data Objective Data Vital Signs: Vital Signs Temp Pulse Resp BP Pulse Ox O2 Del Method O2 Flow Rate 97.8 F 111 H 18 106/62 95 High Flow 4 04/28/23 15:47 04/28/23 16:15 04/28/23 15:47 04/28/23 15:47 04/28/23 15:47 04/28/23 16:15 04/28/23 16:15 Oxygen Flow Rate (L/min) 4 Oxygen Delivery Method High Flow Weight: 64.4 kg Body Mass Index (BMI) 22.2 Intake & Output: Intake and Output for Last 24 Hours 04/26/23 04/27/23 04/28/23 23:59 23:59 23:59 Intake Total 100 / 100 120 / 120 Output Total 0 / 0 2700 / 2700 Balance 100 / 100 -2580 / -2580 Lab / Micro Data 04/28/23 07:55 04/28/23 07:55 Labs: Laboratory Results - last 24 hr 04/28/23 07:55: WBC 10.8, RBC 2.76 L, Hgb 9.4 L, Hct 29.2 L, MCV 105.8 H, MCH 34.1 H, MCHC 32.2, RDW Std Deviation 58.9 H, RDW Coeff of Nick 15.1 H, Plt Count 113 L, MPV 9.8, Immature Gran % (Auto) 0.400, Neut % (Auto) 93.6 H, Lymph % (Auto) 2.1 L, [place] % (Auto) 3.8, Eos % (Auto) 0.0, Baso % (Auto) 0.1, Absolute Neuts (auto) 10.2 H, Absolute Lymphs (auto) 0.23 L, Nucleated RBC % 0, Sodium 137, Potassium 4.5, Chloride 102, Carbon Dioxide 26.0, Anion Gap 9, BUN 79 H, Creatinine 5.15 H, Estim Creat Clear Calc 11.12, Est GFR (MDRD) Af Amer 14 L, Est GFR (MDRD) Non-Af 12 L, BUN/Creatinine Ratio 15.3, Glucose 88, Calcium 9.2 Micro: Microbiology 04/26/23 19:48 Mucosa - Nose SARS-CoV-2, Influenza & RSV (PCR) - Final Influenzae A Physical Exam Narrative Patient is alert to name, no apparent distress. S1, S2, RRR Lungs clear anteriorly, diminished breath sounds posterior bases with faint expiratory wheezing. On O2 nasal cannula Abdomen soft, nontender Trace edema bilateral lower legs and feet AV fistula left forearm positive thrill and bruit Assessment & Plan Assessment/Plan (1) ESRD (end stage renal disease) on dialysis: (2) Anemia in chronic kidney disease: (3) Generalized weakness: PLAN: Plan Impression/Plan: This is a 77-year-old male with past medical history significant for ESRD on hemodialysis Monday at [facility] [place] followed by Dr. Fam, hypertension, anemia of chronic disease, history of intradialytic hypotension on midodrine, A-fib, COPD with chronic hypoxic respiratory failure on O2 at least 3 L at all time, history of coronary artery disease status post CABG. The patient was recently admitted to the hospital for influenza A, weakness, A-fib. Patient was readmitted back to the hospital on 04/26/2023 with complaints of weakness, shortness of breath and confusion. Nephrology consulted for hemodialysis needs. ESRD. Patient was dialyzed today over 4 hours with midodrine predialysis. We are using longer treatment time today to remove more fluid. Current blood pressures acceptable. Recommend holding carvedilol mornings of dialysis. Patient does feel better after dialysis with volume removal. Will reassess for more ultrafiltration on 05/01/2023. Anemia. Patient has history of anemia of chronic disease. Hemoglobin is 9.4 g/dL today. Will follow monitor hemoglobin levels. If hemoglobin drops further, we will redose with FERMIN next week on dialysis.
[2023-04-28] MEDS: Atorvastatin Calcium 20 MG Tablet PO (23:08)
[2023-04-28] MEDS: Oseltamivir Phosphate 30 MG Capsule PO (23:08)
[2023-04-28] MEDS: Menthol/Lanolin/Calamine/Znox 113 GM Tube 1 APPLIC TOPICAL (23:08)
[2023-04-28] MEDS: guaiFENesin 600 MG Tablet PO (23:08)
[2023-04-29 04:00] VITALS: BMI 28.5
[2023-04-29 04:03] VITALS: BP 109/55; PULSE 90; RESP 16; TEMP 36.6; O2SAT 97
[2023-04-29] MEDS: Levothyroxine 50 MCG Tablet PO (06:00)
[2023-04-29 07:15] VITALS: PULSE 110; RESP 24; O2SAT 96
[2023-04-29] MEDS: Ipratropium/Albuterol Sulfate 3 ML AMPUL.NEB INHALATION (07:15)
--- NOTE | 2023-04-29 07:15 | PN.HOSP_ITS ---
Reason for Visit Reason for Visit: Diagnoses Anemia in chronic kidney disease (04/27/23) End stage renal disease (04/27/23) Chronic kidney disease, unspecified (04/27/23) Difficulty in walking, not elsewhere classified (04/27/23) Weakness (04/27/23) Personal history of other diseases of the respiratory system (04/27/23) Dependence on renal dialysis (04/27/23) Subjective Subjective Feels better. Objective Data Objective Data Vital Signs: Vital Signs Temp Pulse Resp BP Pulse Ox O2 Del Method O2 Flow Rate 36.6 C 90 16 109/55 L 97 High Flow 3 04/29/23 04:03 04/29/23 04:03 04/29/23 04:03 04/29/23 04:03 04/29/23 04:03 04/29/23 05:00 04/29/23 05:00 Oxygen Flow Rate (L/min) 3 Oxygen Delivery Method High Flow Weight: 82.6 kg Body Mass Index (BMI) 28.5 Intake & Output: Intake and Output for Last 24 Hours 04/27/23 04/28/23 04/29/23 23:59 23:59 23:59 Intake Total 100 / 100 120 / 120 100 / 100 Output Total 0 / 0 2700 / 2700 0 / 0 Balance 100 / 100 -2580 / -2580 100 / 100 Lab / Micro Data 04/28/23 07:55 04/28/23 07:55 Labs: Laboratory Results - last 24 hr 04/28/23 07:55: WBC 10.8, RBC 2.76 L, Hgb 9.4 L, Hct 29.2 L, MCV 105.8 H, MCH 34.1 H, MCHC 32.2, RDW Std Deviation 58.9 H, RDW Coeff of Nick 15.1 H, Plt Count 113 L, MPV 9.8, Immature Gran % (Auto) 0.400, Neut % (Auto) 93.6 H, Lymph % (Auto) 2.1 L, [place] % (Auto) 3.8, Eos % (Auto) 0.0, Baso % (Auto) 0.1, Absolute Neuts (auto) 10.2 H, Absolute Lymphs (auto) 0.23 L, Nucleated RBC % 0, Sodium 137, Potassium 4.5, Chloride 102, Carbon Dioxide 26.0, Anion Gap 9, BUN 79 H, Creatinine 5.15 H, Estim Creat Clear Calc 11.12, Est GFR (MDRD) Af Amer 14 L, Est GFR (MDRD) Non-Af 12 L, BUN/Creatinine Ratio 15.3, Glucose 88, Calcium 9.2 Micro: Microbiology 04/26/23 19:48 Mucosa - Nose SARS-CoV-2, Influenza & RSV (PCR) - Final Influenzae A Physical Exam Const Constitutional Narrative: Up in a chair. Afebrile. Alert and oriented to self and place. Cannot tell me the date other than being April. Resp normal respiratory effort, no retractions, no use of accessory muscles and clear to auscultation bilaterally Cardio regular rate, regular rhythm, S1 normal heart sound and S2 normal heart sound Neuro oriented x3 Sensorium / Orientation: awake and alert Assessment & Plan Assessment/Plan (1) Generalized weakness: (2) Unable to ambulate: (3) History of influenza: PLAN: Plan Generalized Weakness * Improved. Continue to hold gabapentin. Patient was just discharged yesterday and went to the facility only to be sent back because he was the more confused and very weak. * PT OT * Patient is weak and has a baseline poor performance status. * DC gabapentin. Unclear if this is remaining in system causing be en cephalopathic and such as this. * Discussed with the patient's , the patient was dependent but she was able to help him at home so I do not feel the patient is hospice appropriate at this time. Patient did. Well yesterday as well as a day before but was notably weak. I do feel the patient could benefit from further rehab once he is more medically stable. Did discuss with nephrology who will try to write him a little bit longer. Is unclear if he is actually uremic or not but they will try the dialysis on the with a longer run time. Encephalopathy * unclear type, but concerning it could be toxic AND metabolic. Toxic possibly from gabapentin and metabolic perhaps from uremia * Pt to have HD today. Gabapentin has been held. * Overall the patient is improved. Would continue to hold gabapentin moving forward. Chronic conditions * essential hypertension - Continue home medications as previous plus give prn IV hydralazine for systolic blood pressure > 160 mmHg. * Hyperlipidemia - Resume statin. * Hypothyroidism - Continue Synthroid. * Obesity; with BMI; of 30 this admission - Weight loss will be recommended. * ESRD on HD; on Midodrine and Fludrocortisone for hypotension during HD - Noted. * Chronic atrial fibrillation - Stable. * COPD; with chronic hypoxic respiratory failure on 3.5 L home O2 - Stable. Continue current regimen. * MARCELO; on CPAP - Stable. * CAD; s/p CABG - Noted. * History of CHF - Stable. * Chronic anemia - Stable. * BPH - Stable. * depression - Current treatment to continue. * Gout - Stable with no evidence of acute flare. DVT prophylaxis - Heparin 5,000 units sq BID. Patient not hospice appropriate hospice consult is canceled. Pt already established with palliative care prior to arrival. Anticipated length of stay greater than 48 hours. Charges/Coding Visit Charges Inpatient E&M: 08572 Subs Hosp L2
--- NOTE | 2023-04-29 09:48 | PCM.TXEXTCAR ---
Diet Diet Order/Speech Therapy: 04/28/23 14:26 Diet: Renal - General Food consistency:: Soft & Bite Sized Liquid Consistency:: Regular/Thin Is pt able to select menu?: Yes Diet Comments: TOTAL FEED, No straws, Small sips, Ok for meds in Routine Orders/Code Status Routine Lab Work: CBC and BMP Wound(s) Right Arm Skin Tear x 2: Wound Type: Skin Tear Right Yang: Wound Type: Abrasion coccyx: Wound Type: Pressure Injury Therapies Physical Therapy: Eval and Treat Occupational Therapy: Eval and Treat Problem/Diagnosis (1) Generalized weakness: Status: Resolved Code(s): R53.1 - Weakness (2) Unable to ambulate: Status: Resolved Code(s): R26.2 - Difficulty in walking, not elsewhere classified (3) History of influenza: Status: Resolved Code(s): Z87.09 - Personal history of other diseases of the respiratory system Plan Generalized Weakness Improved. Continue to hold gabapentin. Patient was just discharged yesterday and went to the facility only to be sent back because he was the more confused and very weak. PT OT Patient is weak and has a baseline poor performance status. DC gabapentin. Unclear if this is remaining in system causing be encephalopathic and such as this. Discussed with the patient's , the patient was dependent but she was able to help him at home so I do not feel the patient is hospice appropriate at this time. Patient did. Well yesterday as well as a day before but was notably weak. I do feel the patient could benefit from further rehab once he is more medically stable. Did discuss with nephrology who will try to write him a little bit longer. Is unclear if he is actually uremic or not but they will try the dialysis on the with a longer run time. Encephalopathy unclear type, but concerning it could be toxic AND metabolic. Toxic possibly from gabapentin and metabolic perhaps from uremia Pt to have HD today. Gabapentin has been held. Overall the patient is improved. Would continue to hold gabapentin moving forward. Chronic conditions essential hypertension - Continue home medications as previous plus give prn IV hydralazine for systolic blood pressure > 160 mmHg. Hyperlipidemia - Resume statin. Hypothyroidism - Continue Synthroid. Obesity; with BMI; of 30 this admission - Weight loss will be recommended. ESRD on HD; on Midodrine and Fludrocortisone for hypotension during HD - Noted. Chronic atrial fibrillation - Stable. COPD; with chronic hypoxic respiratory failure on 3.5 L home O2 - Stable. Continue current regimen. MARCELO; on CPAP - Stable. CAD; s/p CABG - Noted. History of CHF - Stable. Chronic anemia - Stable. BPH - Stable. depression - Current treatment to continue. Gout - Stable with no evidence of acute flare. DVT prophylaxis - Heparin 5,000 units sq BID. Patient not hospice appropriate hospice consult is canceled. Pt already established with palliative care prior to arrival. Anticipated length of stay greater than 48 hours. Allergies/Procedures Done in Hospital Allergies Penicillins Allergy (Severe, Verified 04/26/23 19:16) Rash, 105 temp amlodipine Allergy (Verified 04/26/23 19:16) itching and rash prednisone Allergy (Verified 04/26/23 19:16) Other HEART RACING indomethacin Adverse Reaction (Intermediate, Verified 04/26/23 19:16) Other unknown ropinirole Adverse Reaction (Intermediate, Verified 04/26/23 19:16) Other confusion trazodone Adverse Reaction (Intermediate, Verified 04/26/23 19:16) Other confusion aspirin Adverse Reaction (Mild, Verified 04/26/23 19:16) rash ENTERIC COATED ONLY; IS ABLE TO TAKE REGULAR ASPIRIN Procedures: None Type of Care/Length of Stay Estimated LOS: Convalescent Care Less Than 30 days Type of Care Needed: Skilled Rehab Potential: Good Prognosis: Good Additional Orders/Day of Discharge Day of Discharge: 04/29/23 Dietary and Speech Recommendations Dietitian Recommendations/Changes: recommend renal-general diet, texture/consistency modifications per SCREEN MAKING TECHNICIAN. Anticipate likely need to liberalize diet to regular if PO intake at meals is poor Discharge Plan Admission Admit Date/Time: 04/27/23 13:57 Primary Reason for Your Visit: debility Attending Provider: Andrey Soliman Primary Care Provider: Zack Stacy Consulting Providers: Sachin Porter Instructions Additional Instructions / Restrictions: Patient follow-up with neurology either at [place] or elsewhere. Discharge Orders/Prescriptions Prescriptions: Continued allopurinol 100 mg tablet 100 mg PO DAILY nitroglycerin 0.4 mg tablet, sublingual 0.4 mg SUBLINGUAL Q5-15M PRN (Reason: chest pain) amiodarone 200 mg tablet 100 mg PO DAILY rosuvastatin [Crestor] 10 mg tablet 10 mg PO QHS midodrine 10 mg tablet 10 mg PO MOWEFR Patient Comments: per patient he takes before dialysis Rx Instructions: do not give last dose of day after 6PM or within 4 hrs of bedtime guaifenesin [Mucinex] 600 mg tablet extended release 12hr 600 mg PO BID fluticasone propionate 50 mcg/actuation spray,suspension 2 spray INTRANASAL DAILY PRN (Reason: ALLERGIES) Bevespi Aerosphere 9-4.8 mcg HFA aerosol inhaler 2 puff INHALATION BID aspirin [Adult Aspirin Regimen] 81 mg tablet,delayed release (DR/EC) 81 mg PO DAILY albuterol sulfate 2.5 mg /3 mL (0.083 %) solution for nebulization 2.5 mg inhalation 4X/DAY PRN PRN (Reason: COPD) Qty: 180 6RF ascorbic acid (vitamin C) [Vitamin C] 500 mg Capsule, Extended Release 500 mg PO DAILY levothyroxine 50 mcg tablet 50 mcg PO DAILY carvedilol 3.125 mg Tablet 3.125 mg PO SuTuThSa@1000 Qty: 0 0RF Tawanna-Laura 0.8 mg tablet 1 tab PO Q24H Patient Comments: TAKE 1 TABLET BY MOUTH ONCE DAILY fludrocortisone 0.1 mg Tablet 0.1 mg PO BREAKFAST Qty: 0 0RF Discontinued gabapentin 100 mg capsule 200 mg PO QHS sertraline 100 mg tablet 100 mg PO DAILY Patient Comments: TAKE 1 TABLET BY MOUTH ONCE DAILY oseltamivir 30 mg Capsule 30 mg PO 2200 Qty: 10 0RF Referrals / Follow Up: [facility] [Provider Group] - Within 1 Month Zack Stacy MD [Primary Care Provider] - Within 2 Weeks Disposition Disposition (needs filled in before D/C Order can be placed): Longterm Facility
[2023-04-29] MEDS: Allopurinol 100 MG Tablet PO (09:50)
[2023-04-29] MEDS: guaiFENesin 600 MG Tablet PO (09:50)
[2023-04-29] MEDS: Vitamin B Comp W-C Capsule 1 CAP PO (09:51)
[2023-04-29] MEDS: Heparin Injection (Vial) 5,000 UNIT/ML VIAL 5000 UNIT SC (09:51)
[2023-04-29] MEDS: Fludrocortisone Acetate 0.1 MG Tablet 0.100000000000000006 MG PO (09:51)
[2023-04-29] MEDS: Sertraline 100 MG Tablet PO (09:51)
[2023-04-29] MEDS: Aspirin E.C. 81 MG Tablet PO (09:51)
[2023-04-29] MEDS: Ascorbic Acid 500 MG Tablet PO (09:52)
[2023-04-29] MEDS: Amiodarone 200 MG Tablet 100 MG PO (09:52)
[2023-04-29] MEDS: Nystatin Powder 15gm Bottle 1 APPLIC TOPICAL (09:52)
[2023-04-29 10:00] VITALS: BP 100/77; PULSE 94; RESP 18; TEMP 36.6; O2SAT 94
--- NOTE | 2023-04-29 10:04 | DS.PCM_ITS ---
Providers Date of Admission: 04/27/23 Primary Care Physician: Dr. Zack Stacy MD Reason For Visit: GENERALIZED WEAKNESS WITH AMBULATORY Diagnosis Discharge Diagnosis (1) Generalized weakness: Status: Resolved Code(s): R53.1 - Weakness (2) Unable to ambulate: Status: Resolved Code(s): R26.2 - Difficulty in walking, not elsewhere classified (3) History of influenza: Status: Resolved Code(s): Z87.09 - Personal history of other diseases of the respiratory system Plan Generalized Weakness * Improved. Continue to hold gabapentin. Patient was just discharged yesterday and went to the facility only to be sent back because he was the more confused and very weak. * PT OT * Patient is weak and has a baseline poor performance status. * DC gabapentin. Unclear if this is remaining in system causing be encephalopathic and such as this. * Discussed with the patient's , the patient was dependent but she was able to help him at home so I do not feel the patient is hospice appropriate at this time. Patient did. Well yesterday as well as a day before but was notably weak. I do feel the patient could benefit from further rehab once he is more medically stable. Did discuss with nephrology who will try to write him a little bit longer. Is unclear if he is actually uremic or not but they will try the dialysis on the with a longer run time. Encephalopathy * unclear type, but concerning it could be toxic AND metabolic. Toxic possibly from gabapentin and metabolic perhaps from uremia * Pt to have HD today. Gabapentin has been held. * Overall the patient is improved. Would continue to hold gabapentin moving forward. * I discussed with the patient's . 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 I explained to her that I feel that he may have some underlying neurologic dis ease such as Parkinson's. I did advise that she follow-up with neurology either at [facility] or elsewhere. May be easier to get in to see a neurologist elsewhere to see if she if he has an underlying neurologic disorder. Chronic conditions * essential hypertension - Continue home medications as previous plus give prn IV hydralazine for systolic blood pressure > 160 mmHg. * Hyperlipidemia - Resume statin. * Hypothyroidism - Continue Synthroid. * Obesity; with BMI; of 30 this admission - Weight loss will be recommended. * ESRD on HD; on Midodrine and Fludrocortisone for hypotension during HD - Noted. * Chronic atrial fibrillation - Stable. * COPD; with chronic hypoxic respiratory failure on 3.5 L home O2 - Stable. Continue current regimen. * MARCELO; on CPAP - Stable. * CAD; s/p CABG - Noted. * History of CHF - Stable. * Chronic anemia - Stable. * BPH - Stable. * depression - Current treatment to continue. * Gout - Stable with no evidence of acute flare. DVT prophylaxis - Heparin 5,000 units sq BID. Patient not hospice appropriate hospice consult is canceled. Pt already established with palliative care prior to arrival. Anticipated length of stay greater than 48 hours. Medications at Discharge Home Medications allopurinol 100 mg tablet 100 mg PO DAILY GOUT 05/03/18 nitroglycerin 0.4 mg sublingual tablet 0.4 mg sublingual Q5-15M PRN chest pain 05/03/18 amiodarone 200 mg tablet 100 mg PO DAILY heart 11/19/20 rosuvastatin 10 mg tablet (Crestor) 10 mg PO QHS cholesterol 11/19/20 ascorbic acid (vitamin C) 500 mg capsule,extended release (Vitamin C) 500 mg PO DAILY supplement 11/23/20 midodrine 10 mg tablet 10 mg PO MOWEFR bp 11/04/21 levothyroxine 50 mcg tablet 50 mcg PO DAILY thyroid 12/13/21 carvedilol 3.125 mg tablet 3.125 mg PO SuTuThSa@1000 blood pressure #0 tabs 03/23/22 guaifenesin 600 mg tablet, extended release 12 hr (Mucinex) 600 mg PO BID cough 06/07/22 albuterol sulfate 2.5 mg/3 mL (0.083 %) solution for nebulization 2.5 mg (3 mL) inhalation 4X/DAY PRN PRN COPD #180 mL 04/04/23 aspirin 81 mg tablet,delayed release (Adult Aspirin Regimen) 81 mg PO DAILY 04/04/23 fluticasone propionate 50 mcg/actuation nasal spray,suspension 2 spray intranasal DAILY PRN ALLERGIES 04/04/23 glycopyrrolate 9 mcg-formoterol 4.8 mcg HFA aerosol inhaler (Bevespi Aerosphere) 2 puff inhalation BID SOB 04/04/23 vitamin B complex-vitamin C-folic acid 0.8 mg tablet (Tawanna-Laura) 1 tab PO Q24H vitamin 04/18/23 fludrocortisone 0.1 mg tablet 0.1 mg PO BREAKFAST #0 tabs 04/26/23 Hospital Course Operations None Procedures Dialysis and Modified Barium Swallow Summary of Care Provided Minutes Spent on Discharge: 32 Weight / BMI Weight Weight: 82.6 kg Body Mass Index (BMI) 28.5 ABG / Lab / Microbiology Data 04/28/23 07:55 04/28/23 07:55 Laboratory: Laboratory Results - last 24 hr 04/28/23 07:55: Sodium 137, Potassium 4.5, Chloride 102, Carbon Dioxide 26.0, Anion Gap 9, BUN 79 H, Creatinine 5.15 H, Estim Creat Clear Calc 11.12, Est GFR (MDRD) Af Amer 14 L, Est GFR (MDRD) Non-Af 12 L, BUN/Creatinine Ratio 15.3, Glu cose 88, Calcium 9.2 Microbiology: Microbiology 04/26/23 19:48 Mucosa - Nose SARS-CoV-2, Influenza & RSV (PCR) - Final Influenzae A Meaningful Use Info Meaningful Use Diagnoses (Choose all that apply): None applicable Discharge Plan Admission Admit Date/Time: 04/27/23 13:57 Primary Reason for Your Visit: debility Attending Provider: Andrey Soliman Primary Care Provider: Zack Stacy Consulting Providers: Sachin Porter Instructions Additional Instructions / Restrictions: Patient follow-up with neurology either at [facility] or elsewhere. Discharge Orders/Prescriptions Prescriptions: Continued allopurinol 100 mg tablet 100 mg PO DAILY nitroglycerin 0.4 mg tablet, sublingual 0.4 mg SUBLINGUAL Q5-15M PRN (Reason: chest pain) amiodarone 200 mg tablet 100 mg PO DAILY rosuvastatin [Crestor] 10 mg tablet 10 mg PO QHS midodrine 10 mg tablet 10 mg PO MOWEFR Patient Comments: per patient he takes before dialysis Rx Instructions: do not give last dose of day after 6PM or within 4 hrs of bedtime guaifenesin [Mucinex] 600 mg tablet extended release 12hr 600 mg PO BID fluticasone propionate 50 mcg/actuation spray,suspension 2 spray INTRANASAL DAILY PRN (Reason: ALLERGIES) Bevespi Aerosphere 9-4.8 mcg HFA aerosol inhaler 2 puff INHALATION BID aspirin [Adult Aspirin Regimen] 81 mg tablet,delayed release (DR/EC) 81 mg PO DAILY albuterol sulfate 2.5 mg /3 mL (0.083 %) solution for nebulization 2.5 mg inhalation 4X/DAY PRN PRN (Reason: COPD) Qty: 180 6RF ascorbic acid (vitamin C) [Vitamin C] 500 mg Capsule, Extended Release 500 mg PO DAILY levothyroxine 50 mcg tablet 50 mcg PO DAILY carvedilol 3.125 mg Tablet 3.125 mg PO SuTuThSa@1000 Qty: 0 0RF Tawanna-Laura 0.8 mg tablet 1 tab PO Q24H Patient Comments: TAKE 1 TABLET BY MOUTH ONCE DAILY fludrocortisone 0.1 mg Tablet 0.1 mg PO BREAKFAST Qty: 0 0RF Discontinued gabapentin 100 mg capsule 200 mg PO QHS sertraline 100 mg tablet 100 mg PO DAILY Patient Comments: TAKE 1 TABLET BY MOUTH ONCE DAILY oseltamivir 30 mg Capsule 30 mg PO 2200 Qty: 10 0RF Referrals / Follow Up: [facility] [Provider Group] - Within 1 Month Zack Stacy MD [Primary Care Provider] - Within 2 Weeks Disposition Disposition (needs filled in before D/C Order can be placed): Detention Facility Charges/Coding Visit Charges Inpatient E&M: 57928 Disch Hosp >30min
== END 2023-04-29 12:01 | disposition skilled nursing facility (03) | DRG 884 ==
LOC: ED 22:10 → MS3 23:00
PROVIDERS: Admitting Provider Internal Medicine; Emergency Provider Student in an Organized Health Care Education/Training Program; PCP Family Medicine
DX: R54 Age-related physical debility (principal); N18.6 End stage renal disease; G93.40 Encephalopathy, unspecified; I13.2 Hypertensive heart and chronic kidney disease with heart failure and with stage 5 chronic kidney disease, or end stage renal disease; I48.20 Chronic atrial fibrillation, unspecified; J96.11 Chronic respiratory failure with hypoxia; D63.1 Anemia in chronic kidney disease; J44.9 Chronic obstructive pulmonary disease, unspecified; I50.9 Heart failure, unspecified; Z99.2 Dependence on renal dialysis; E03.9 Hypothyroidism, unspecified; F32.A Depression, unspecified; I95.89 Other hypotension; I25.10 Atherosclerotic heart disease of native coronary artery without angina pectoris; G47.33 Obstructive sleep apnea (adult) (pediatric); E78.00 Pure hypercholesterolemia, unspecified; M10.9 Gout, unspecified; R26.2 Difficulty in walking, not elsewhere classified; F41.9 Anxiety disorder, unspecified; E66.9 Obesity, unspecified; Z95.5 Presence of coronary angioplasty implant and graft; Z87.891 Personal history of nicotine dependence; Z68.30 Body mass index [BMI] 30.0-30.9, adult; Z99.81 Dependence on supplemental oxygen; Z95.1 Presence of aortocoronary bypass graft; Z99.89 Dependence on other enabling machines and devices; Z79.899 Other long term (current) drug therapy; Z79.51 Long term (current) use of inhaled steroids; Z98.42 Cataract extraction status, left eye; Z90.49 Acquired absence of other specified parts of digestive tract; Z96.653 Presence of artificial knee joint, bilateral; Z87.09 Personal history of other diseases of the respiratory system; N40.0 Benign prostatic hyperplasia without lower urinary tract symptoms
CPT/HCPCS: 36415; 71045; 74230; 80048; 82962; 83880; 84443; 84484; 85025; 87631; 87811; 90937; 92610; 92611; 93005; 94640; 94762; 97110; 97162; 97166; 97530; 99252; 99284; J7030; A4216; G0257; G0463

== ENCOUNTER 2023-06-26 10:30 | Inpatient (IN) | payer MEDICARE, OTHER, SELFPAY ==
[2023-06-26] VITALS (14 sets, daily range): BP systolic 81–286; BP diastolic 41–127; PULSE 76–103; RESP 14–26; TEMP 35.5–36.4; O2SAT 94–100; BMI 29.4; BMI 28.5; BMI 27.8
--- NOTE | 2023-06-26 10:53 | EX.ED.DYSGE1 ---
HPI History of Present Illness Chief Complaint: Hypotension Informant: patient Onset/Context/Timing Onset: Yesterday Context: Gradual Onset Timing: Continuous Quality: Orthopnea Location: Chest Worsened by: Activity, laying flat Relieved by: Nothing Narrative Narrative: Patient presents with shortness of breath that began yesterday. Patient states that became worse today. Patient states his breathing is worse with laying flat and with any activity. Patient admits to a cough with some brown and yellow sputum. Patient denies any fevers or chills. Patient denies any chest pain. Patient has a history of chronic kidney disease and does dialysis on Monday, Monday, and Monday. Patient did not go to dialysis because they noted a low blood pressure at the [facility]. Patient was transferred to the emergency department instead. EMS noted an elevated blood pressure and patient's blood pressure was elevated here. Currently, his blood pressure is 157/131. [facility] Medical History Abnormal chest CT Anemia Anemia in chronic kidney disease Anxiety Arthritis Back pain BiPAP (biphasic positive airway pressure) dependence BPH (benign prostatic hyperplasia) CHF (congestive heart failure) Congestive heart failure (CHF) COPD (chronic obstructive pulmonary disease) COPD (chronic obstructive pulmonary disease) Coronary artery disease Coronary artery disease involving coronary bypass graft Coronary atherosclerosis of [place] coronary artery CPAP (continuous positive airway pressure) dependence Depression Emphysema, unspecified End-stage renal disease on hemodialysis Erectile dysfunction ESRD (end stage renal disease) ESRD (end stage renal disease) on dialysis Former smoker Gastric ulcer GERD (gastroesophageal reflux disease) Gout High cholesterol History of atrial fibrillation History of edema History of heart attack HLD (hyperlipidemia) HTN (hypertension) Hypertension Hypothyroidism Lower GI bleed Lumbar disc disease with radiculopathy Lumbosacral stenosis [place] Obesity On home oxygen therapy MARCELO (obstructive sleep apnea) Pleural effusion Psychosexual dysfunction with inhibited sexual excitement Secondary pulmonary hypertension Sleep apnea Stage 3 severe COPD by GOLD classification Symptomatic anemia Home Medications nitroglycerin 0.4 mg sublingual tablet 0.4 mg sublingual Q5-15M PRN chest pain 05/03/18 [History Last Taken Unknown] amiodarone 200 mg tablet 100 mg PO DAILY heart 11/19/20 [History Last Taken 04/18/23] ascorbic acid (vitamin C) 500 mg capsule,extended release (Vitamin C) 500 mg PO DAILY supplement 11/23/20 [History Last Taken 04/18/23] levothyroxine 50 mcg tablet 50 mcg PO DAILY thyroid 12/13/21 [History Last Taken 03/18/22] carvedilol 3.125 mg tablet 3.125 mg PO SuTuThSa@1000 blood pressure #0 tabs 03/23/22 [Rx Last Taken 04/18/23] guaifenesin 600 mg tablet, extended release 12 hr (Mucinex) 600 mg PO BID cough 06/07/22 [History Last Taken Unknown] albuterol sulfate 2.5 mg/3 mL (0.083 %) solution for nebulization 2.5 mg (3 mL) inhalation 4X/DAY PRN PRN COPD #180 mL 04/04/23 [Rx Last Taken 04/18/23] aspirin 81 mg tablet,delayed release (Adult Aspirin Regimen) 81 mg PO DAILY 04/04/23 [History Last Taken 04/18/23] fluticasone propionate 50 mcg/actuation nasal spray,suspension 2 spray intranasal DAILY PRN ALLERGIES 04/04/23 [History Last Taken Unknown] glycopyrrolate 9 mcg-formoterol 4.8 mcg HFA aerosol inhaler (Bevespi Aerosphere) 2 puff inhalation BID SOB 04/04/23 [History Last Taken Unknown] vitamin B complex-vitamin C-folic acid 0.8 mg tablet (Tawanna-Laura) 1 tab PO Q24H vitamin 04/18/23 [History Last Taken Unknown] fludrocortisone 0.1 mg tablet 0.1 mg PO BREAKFAST #0 tabs 04/26/23 [Rx Last Taken Unknown] atorvastatin 20 mg tablet 20 mg PO DAILY 06/26/23 [History Last Taken Unknown] collagenase clostridium histo. 250 unit/gram topical ointment (Santyl) 1 applic topical DAILY 06/26/23 [History Last Taken Unknown] lidocaine-prilocaine 2.5 %-2.5 % topical cream 1 applic topical UD 06/26/23 [History Last Taken Unknown] midodrine 5 mg tablet 5 mg PO UD 06/26/23 [History Last Taken Unknown] mirtazapine 7.5 mg tablet 7.5 mg PO QHS 06/26/23 [History Last Taken Unknown] Allergy/AdvReac Type Severity Reaction Status Date / Time Penicillins Allergy Severe Rash, 105 Verified 06/26/23 10:36 temp amlodipine Allergy itching Verified 06/26/23 10:36 and rash prednisone Allergy Other Verified 06/26/23 10:36 indomethacin AdvReac Intermediate Other Verified 06/26/23 10:36 ropinirole AdvReac Intermediate Other Verified 06/26/23 10:36 trazodone AdvReac Intermediate Other Verified 06/26/23 10:36 aspirin AdvReac Mild rash Verified 06/26/23 10:36 Family History Mother , 84 y.o. Hypertension CVA (cerebral vascular accident) Father , 70 y.o. Heart disease Hodgkin disease Sister , 72 y.o. Heart disease Surgical History H/O left cataract extraction History of cardiac catheterization History of colectomy (~2022) History of colonoscopy History of coronary artery stent placement History of heart artery stent History of heart surgery History of knee replacement procedure of left knee History of open heart surgery (~08/2020) History of total right knee replacement S/P arteriovenous (AV) fistula repair (~12/2020) Social History household members: spouse housing: house pets and animals: No Smoking Status: Former smoker second hand exposure: No alcohol intake: current alcohol intake frequency: holidays/special occasions only ROS ROS ED Constitutional Constitutional ED: Denies chills or fever(s) Eyes Eyes: Denies blurry vision or change in vision ENT ENT ED: Denies rhinorrhea or sore throat Cardiovascular Cardiovascular: Denies chest pain or palpitations Respiratory/Chest Respiratory/Chest: Reports cough, dyspnea and sputum Gastrointestinal Gastrointestinal: Denies nausea or vomiting Genitourinary Genitourinary ED: Denies dysuria or hematuria Musculoskeletal Musculoskeletal: Reports back pain; Denies neck pain Integumentary Denies abscess or rash Neurologic Neurologic: Denies headache(s) or weakness Allergic/Immunologic Allergic/Immunologic ED: Denies mouth swelling or urticaria EXAM Physical Exam Const Vital Signs: 06/26/23 10:31 06/26/23 10:31 06/26/23 10:36 Temperature 95.9 F L 95.9 F L Temperature Source Temporal Temporal Pulse Rate 103 H 97 Respiratory Rate 23 H 22 H Respiratory Effort Normal Non-Labored Respiratory Pattern Normal Blood Pressure 161/127 H 161/127 H Blood Pressure Mean 138 138 Pulse Ox 96 96 Oxygen Delivery Method Nasal Cannula Nasal Cannula Oxygen Flow Rate (L/min) 3 3 06/26/23 12:31 Temperature Temperature Source Pulse Rate 89 Respiratory Rate 16 Respiratory Effort Respiratory Pattern Blood Pressure 93/57 L Blood Pressure Mean 69 Pulse Ox 99 Oxygen Delivery Method Nasal Cannula Oxygen Flow Rate (L/min) 5 Positive well nourished and well developed General Appearance ED: well developed and NAD HEENT Reports moist mucous membranes Neck supple and no JVD Resp normal respiratory effort Auscultation: diminished lung sounds diffuse Cardio regular rate and regular rhythm GI non-tender and non-distended Palpation: soft Neuro oriented x3, CN's II-XII intact bilaterally and no sensory deficits noted Sensorium / Orientation: alert Motor Exam: strength 5/5 throughout Psych mental status grossly normal MDM MDM MDM Narrative Medical decision making narrative: Differential diagnosis includes congestive heart failure, chronic kidney disease, electrolyte abnormality, cardiac dysrhythmia, cardiac ischemia, pneumonia, and viral illness. EKG will be obtained to assess for cardiac dysrhythmia and cardiac ischemia. Chest x-ray will be obtained to assess for pneumonia and congestive heart failure. CBC will be obtained to assess for leukocytosis and anemia. Basic metabolic profile will be obtained to assess for electrolyte abnormality and renal function. BNP will be obtained to assess for congestive heart failure. High-sensitivity troponin will be obtained to assess for cardiac ischemia. Lab Data Attestation: I reviewed the patient's lab results. Lab results narrative: CBC was reviewed. There is a mild anemia with a hemoglobin of 10.6 and hematocrit of 35.0. This is consistent with prior results. Basic metabolic profile was reviewed. Potassium was elevated at 6.4. BUN was 37 and creatinine was 4.93. These are consistent with prior results. High-sensitivity troponin was reviewed and was slightly elevated at 105. BNP was reviewed and was elevated at 3001.9. This is consistent with prior results. Labs: Laboratory Results - last 24 hr 06/26/23 06/26/23 11:30 12:18 WBC 9.3 RBC 3.01 L Hgb 10.6 L Hct 35.0 L MCV 116.3 H MCH 35.2 H MCHC 30.3 L RDW Std Deviation 74.0 H RDW Coeff of Nick 17.2 H Plt Count 224 MPV 9.5 Immature Gran % (Auto) 0.500 Neut % (Auto) 77.1 H Lymph % (Auto) 7.4 L Chambers % (Auto) 14.2 H Eos % (Auto) 0.2 Baso % (Auto) 0.6 Absolute Neuts (auto) 7.2 Absolute Lymphs (auto) 0.69 L Nucleated RBC % 0 Hypochromasia 1+ Anisocytosis 1+ Sodium Cancelled 137 Potassium Cancelled 6.4 H* Chloride Cancelled 103 Carbon Dioxide Cancelled 29.0 Anion Gap Cancelled 5 BUN Cancelled 37 H Creatinine Cancelled 4.93 H Estim Creat Clear Calc Cancelled 13.30 Est GFR (MDRD) Af Amer Cancelled 15 L Est GFR (MDRD) Non-Af Cancelled 12 L BUN/Creatinine Ratio Cancelled 7.5 L Glucose Cancelled 122 H Calcium Cancelled 8.4 L Troponin I High Sens Cancelled 105 H B-Natriuretic Peptide Cancelled 3001.9 H Radiography Chest X-Ray - ED: 1 View, Read by ED Physician, Cardiomegaly and CHF Diagnostic Testing: Clinical Impression(s) from Imaging Studies Chest X-Ray 06/26/23 11:50 IMPRESSION: Cardiomegaly and CHF. Electronically Signed: Parminder Benton MD at 12:24 EDT , Portable 1 view chest x-ray was obtained. On my independent interpretation, lung jimenez show evidence of congestive heart failure. There is cardiomegaly noted. Bony thorax is normal. Radiologist also interpreted the x-ray and agrees. EKG Initial EKG: Attestation: I personally reviewed and interpreted this EKG as follows: Interpretation: Sinus Rhythm (With sinus arrhythmia with a rate of 93) and No Acute Injury Pattern Comments: EKG was obtained. On my independent interpretation, it shows normal sinus rhythm with sinus arrhythmia with a rate of 93. NM interval is within normal limits. QRS interval was within normal limits. QTc interval was normal at 430 ms. There is left axis deviation at -86. There are nonspecific ST-T wave changes noted. There is baseline artifact noted. Prior EKG tracings: available for review Prior: Unchanged (04/27/2023) Management Discussion w/another healthcare provider: Hospitalist and [employer] Treatment and Re-Evaluation :: Patient does not make any urine. Therefore Lasix was not given. Patient was given calcium gluconate, insulin, and glucose. Case was discussed with Dr. Ewing from nephrology. He states that the patient will not be able to get dialysis at the dialysis center today or tomorrow. He recommended admission to the hospital. Case was discussed with the hospitalist. She will admit the patient to her service. Patient understood and was agreeable with the plan. All questions were answered. Discharge Plan Dx/Rx/DC Orders Clinical Impression: Congestive heart failure, Chronic kidney disease, Hypotension, Hyperkalemia Disposition Disposition: Acute Care Hospital [facility]
--- NOTE | 2023-06-26 11:00 | EKG12_ITS ---
Test Reason : SOB Blood Pressure : / mmHG Vent. Rate : 093 BPM Atrial Rate : 000 BPM P-R Int : 000 ms QRS Dur : 096 ms QT Int : 346 ms P-R-T Axes : 000 -86 070 degrees QTc Int : 430 ms Atrial fibrillation Left axis deviation Low voltage QRS Inferior infarct (cited on or before 11-FEB-2022) Anterolateral infarct (cited on or before 11-FEB-2022) Abnormal ECG Confirmed by JAMMIE GONZALEZ, ELIGIO ([id number]), supervising film or videotape editor CHERI CLINTON ([id number]) on 06/27/2023 8:22:58 AM Referred By: Confirmed By:ELIGIO AGUDELO MD
[2023-06-26 11:42] LABS: Absolute Lymphocyte Count 0.69 X10^3/uL (0.83-4.51); Absolute Neutrophil Count 7.2 X10^3/uL (2.0-7.7); Basophil# 0.06 X10^3/uL; Basophil% 0.6 % (0-1); Eosinophil# 0.02 X10^3/uL; Eosinophils% 0.2 % (0-5); Hemoglobin 10.6 g/dL (13.0-16.5); Lymphocyte # 0.69 X10^3/ul (0.83-4.51); Lymphocyte % 7.4 % (19-41); Mean Corp Hgb Conc 30.3 g/dL (32-36); Mean Corpuscular Hgb 35.2 pg (27.0-32.0); Mean Corpuscular Volume 116.3 fL (80-94); Mean Platelet Vol. 9.5 fl (6.2-12.0); Monocyte# 1.32 X10^3/uL; Monocyte% 14.2 % (0-10); NRBC Flagged by Analyzer 0 % (0-5); Neutrophil # 7.17 X10^3/uL (2.7-7.7); Neutrophil % 77.1 % (47-70); POSITIVE MORPHOLOGY YES; Platelet Count 224 K/mm3 (150-450); RBC Distribution Width CV 17.2 % (11.6-14.6); Red Blood Count 3.01 M/mm3 (4.6-6.2); White Blood Count 9.3 K/mm3 (4.4-11.0)
[2023-06-26 11:43] LABS: Differential Indicated SCAN CRITERIA MET
--- NOTE | 2023-06-26 11:50 | RAD_ITS ---
STUDY: X-RAY CHEST REASON FOR EXAM: Male, 77 years old. Hypotension. Shortness of breath. TECHNIQUE: AP and lateral views of the chest. COMPARISON: Comparison is made with prior study of April 26, 2023. FINDINGS: EKG electrodes are seen. CHF. There is no demonstrated pleural abnormality. Sternal cerclage wires and vascular clips are present from a prior sternotomy and coronary artery bypass graft procedure (CABG). Moderate cardiomegaly. Normal mediastinum and isaura. Normal visualized pulmonary arteries. There is atherosclerotic calcification of the aortic arch with tortuosity. Normal visualized thoracic spine. Normal visualized ribs, clavicles, and shoulders. There is no demonstrated abnormality of the visualized soft tissue structures of the upper abdomen. RAD/Chest PA and Lateral IMPRESSION: Cardiomegaly and CHF. Electronically Signed: Parminder Benton MD at 12:24 EDT ,
[2023-06-26 11:58] LABS: Anisocytosis 1+; Hypochromasia 1+
[2023-06-26 12:54] LABS: BNP,B-Type NATRIURETIC PEPTIDE 3001.9 pg/mL (0-100)
[2023-06-26] MEDS: 0.9% Normal Saline (500mL Bag) 500 ML 999 ML IV (12:57)
[2023-06-26 13:09] LABS: Anion Gap 5 (5-15); BUN 37 mg/dL (7-18); BUN/Creat Ratio 7.5 RATIO (10-20); Calcium,Total 8.4 mg/dL (8.5-10.1); Chloride 103 mmol/L (98-107); Creatinine, Serum 4.93 mg/dL (0.70-1.30); EST Glomerular Filtration Rate 12 mL/min (>60); Est Glom Filt Rate - Afr Amer 15 mL/min (>60); Glucose 122 mg/dL (74-106); Potassium 6.4 mmol/L (3.5-5.1); Sodium Level 137 mmol/L (136-145); Troponin-I HS (w/2H Reflex) 105 pg/mL (3.0-78.0)
[2023-06-26] MEDS: Calcium Gluconate IV 3 GM in Syringe 1 EACH IV (13:35)
[2023-06-26] MEDS: Dextrose 50%-Water 25 GM/50 ML DISP.SYRIN IV (13:35)
[2023-06-26] MEDS: Insulin Lispro 10 UNIT in Syringe 0 ML 6 UNIT IV (13:35)
--- NOTE | 2023-06-26 13:51 | HP.PCM.HOS_ITS ---
HPI - General General Date of Admission: 06/26/23 Date of Service: 06/26/23 Chief Complaint: Orthopnea, missed HD secondary to low BP. HPI Narrative The patient is a 77 y/o M w/ PMHx: HFrEF, ESRD on HD, HTN with recently more issues with persistent hypotension especially with HD recently initiated on midodrine therapy, Hypothyroidism, HLD, Chronic AF, COPD with chronic hypoxic respiratory failure (3.5-4.5L NC), Anxiety and Depression, MARCELO on BIPAP q HS, Possible Adrenal Insufficiency versus Orthostatic Hypotension on daily fludrocortisone, Obesity, Chronic anemia, BPH, Hx Colon CA s/p partial colectomy who presents to the [facility] ED on 06/26/23 with history of worsening dyspnea over the last 24 to 48 hours more severe on day of presentation worse while he is laying flat and with any activity attempts with minimally productive cough with no recent fevers or chills no chest discomfort but unfortunately upon attempted dialysis on day of presentation had low blood pressure which has become an issue therefore it could not be performed given symptoms prompted referral to the ED for evaluation. Patient has been having low blood pressures with dialysis and more frequently and was initiated on midodrine regimen of note. also rep orts that she feels as though he has been more confused over the last day. Workup in the ED included T95.9, heart rate 103, BP 161/127, respiratory rate 23, 96% on 3 L nasal cannula with most recent presentation oxygen usage prior to this noted 04/29/2023 ranging 4 to 4.5 L nasal cannula and most recent vital signs prior to evaluation heart rate 89, BP 93/57, respiratory rate 16, 99% on 5 L nasal cannula, CBC with WBC 9.3, hemoglobin 10.6, MCV 116.3, platelet 224 with lymphopenia, BMP with potassium 6.4 however moderate hemolysis is noted, BUN/creatinine 37/4.93, creatinine clearance 13.3, GFR 12, glucose 112, troponin 105, BNP 3001.9, chest x-ray with evidence of cardiomegaly and CHF, respiratory panel with SARS COVID/influenza/RSV PCR negative, EKG with SR with non-specific ST-T changes with no acute evidence of ischemia. In the ED patient ministered midodrine 10 mg p.o. x 1, insulin 10 unit IV times 1, dextrose amp, calcium gluconate amp. ED discussed case with Dr. Ewing nephrology. REPLACED BY [facility] Medical History (Updated 06/26/23 @ 18:[address] Mercedes Lancaster MD) Anemia Anemia in chronic kidney disease Anxiety and depression Arthritis Atrial fibrillation Back pain BiPAP (biphasic positive airway pressure) dependence BPH (benign prostatic hyperplasia) COPD (chronic obstructive pulmonary disease) Coronary artery disease involving coronary bypass graft Coronary atherosclerosis of [place] coronary artery CPAP (continuous positive airway pressure) dependence Dialysis patient End-stage renal disease on hemodialysis Erectile dysfunction ESRD (end stage renal disease) on dialysis Former smoker Gastric ulcer GERD (gastroesophageal reflux disease) Gout HFrEF (heart failure with reduced ejection fraction) High cholesterol History of heart attack HLD (hyperlipidemia) HTN (hypertension) Hypothyroidism Lumbar disc disease with radiculopathy Lumbosacral stenosis [place] Myocardial infarct Obesity On home oxygen therapy MARCELO (obstructive sleep apnea) Pleural effusion Psychosexual dysfunction with inhibited sexual excitement Secondary pulmonary hypertension Stage 3 severe COPD by GOLD classification Symptomatic anemia Home Medications nitroglycerin 0.4 mg sublingual tablet 0.4 mg sublingual Q5-15M PRN chest pain 05/03/18 [History Last Taken Unknown] amiodarone 200 mg tablet 100 mg PO DAILY heart 11/19/20 [History Last Taken 04/18/23] ascorbic acid (vitamin C) 500 mg capsule,extended release (Vitamin C) 500 mg PO DAILY supplement 11/23/20 [History Last Taken 04/18/23] levothyroxine 50 mcg tablet 50 mcg PO DAILY thyroid 12/13/21 [History Last Taken 03/18/22] guaifenesin 600 mg tablet, extended release 12 hr (Mucinex) 600 mg PO BID cough 06/07/22 [History Last Taken Unknown] albuterol sulfate 2.5 mg/3 mL (0.083 %) solution for nebulization 2.5 mg (3 mL) inhalation 4X/DAY PRN PRN COPD #180 mL 04/04/23 [Rx Last Taken 04/18/23] aspirin 81 mg tablet,delayed release (Adult Aspirin Regimen) 81 mg PO DAILY 04/04/23 [History Last Taken 04/18/23] fluticasone propionate 50 mcg/actuation nasal spray,suspension 2 spray intranasal DAILY PRN ALLERGIES 04/04/23 [History Last Taken Unknown] glycopyrrolate 9 mcg-formoterol 4.8 mcg HFA aerosol inhaler (Bevespi Aerosphere) 2 puff inhalation BID SOB 04/04/23 [History Last Taken Unknown] vitamin B complex-vitamin C-folic acid 0.8 mg tablet (Tawanna-Laura) 1 tab PO Q24H vitamin 04/18/23 [History Last Taken Unknown] fludrocortisone 0.1 mg tablet 0.1 mg PO BREAKFAST #0 tabs 04/26/23 [Rx Last Taken Unknown] atorvastatin 20 mg tablet 20 mg PO DAILY 06/26/23 [History Last Taken Unknown] collagenase clostridium histo. 250 unit/gram topical ointment (Santyl) 1 applic topical DAILY 06/26/23 [History Last Taken Unknown] lidocaine-prilocaine 2.5 %-2.5 % topical cream 1 applic topical UD 06/26/23 [History Last Taken Unknown] midodrine 5 mg tablet 5 mg PO UD 06/26/23 [History Last Taken Unknown] mirtazapine 7.5 mg tablet 7.5 mg PO QHS 06/26/23 [History Last Taken Unknown] Allergy/AdvReac Type Severity Reaction Status Date / Time Penicillins Allergy Severe Rash, 105 Verified 06/26/23 10:36 temp amlodipine Allergy itching Verified 06/26/23 10:36 and rash prednisone Allergy Other Verified 06/26/23 10:36 indomethacin AdvReac Intermediate Other Verified 06/26/23 10:36 ropinirole AdvReac Intermediate Other Verified 06/26/23 10:36 trazodone AdvReac Intermediate Other Verified 06/26/23 10:36 aspirin AdvReac Mild rash Verified 06/26/23 10:36 Family History Mother , 84 y.o. Hypertension CVA (cerebral vascular accident) Father , 70 y.o. Heart disease Hodgkin disease Sister , 72 y.o. Heart disease Surgical History H/O left cataract extraction History of cardiac catheterization History of colectomy (~2022) History of colonoscopy History of coronary artery stent placement History of heart artery stent History of heart surgery History of knee replacement procedure of left knee History of open heart surgery (~08/2020) History of total right knee replacement Hx of CABG S/P arteriovenous (AV) fistula repair (~12/2020) Social History (Updated 06/26/23 @ 18:[address] Mercedes Lancaster MD) household members: spouse housing: [facility] pets and animals: No Smoking Status: Former smoker second hand exposure: No alcohol intake: current alcohol intake frequency: holidays/special occasions only ROS ROS Narrative Admission Review of Systems: CONSTITUTIONAL: No weight loss, fever, chills, + weakness or fatigue. HEENT: Eyes: No visual loss, blurred vision, double vision or yellow sclerae. Ears, Nose, Throat: No hearing loss, sneezing, congestion, runny nose or sore throat. SKIN: No rash or itching, lesions, wounds except + very staged ecchymoses, abrasions, sacral decubitus ulcer. CARDIOVASCULAR: + Increasing lower extremity swelling, orthopnea. No chest pain, chest pressure or chest discomfort, palpitations, syncopal events. RESPIRATORY: + Dyspnea worse with exertion at times. No marked productive cough or sputum, wheezing, hemoptysis. GASTROINTESTINAL: No anorexia, nausea, vomiting or diarrhea, abdominal pain, melena, BRBPR. GENITOURINARY: No dysuria, frequency, urgency or retention. NEUROLOGICAL: No headache, dizziness, syncope, paralysis, ataxia, numbness or tingling in the extremities, focal weakness, change in bowel or bladder control, seizure. MUSCULOSKELETAL: + muscle, back pain, joint pain or stiffness. HEMATOLOGIC: + Chronic anemia, easy bleeding/bruising. LYMPHATICS: No enlarged nodes. No history of splenectomy. PSYCHIATRIC: + History of anxiety and depression. ENDOCRINOLOGIC: No reports of sweating, cold or heat intolerance. No polyuria or polydipsia. ALLERGIES: + History of allergic rhinitis. Vital Signs Vital Signs Vital Signs: 06/26/23 10:31 06/26/23 10:31 06/26/23 10:36 Temperature 95.9 F L 95.9 F L Temperature Source Temporal Temporal Pulse Rate 103 H 97 Respiratory Rate 23 H 22 H Respiratory Effort Normal Non-Labored Respiratory Pattern Normal Blood Pressure 161/127 H 161/127 H Blood Pressure Mean 138 138 Pulse Ox 96 96 Oxygen Delivery Method Nasal Cannula Nasal Cannula Oxygen Flow Rate (L/min) 3 3 06/26/23 12:31 Temperature Temperature Source Pulse Rate 89 Respiratory Rate 16 Respiratory Effort Respiratory Pattern Blood Pressure 93/57 L Blood Pressure Mean 69 Pulse Ox 99 Oxygen Delivery Method Nasal Cannula Oxygen Flow Rate (L/min) 5 Weight Weight: 187 lb 13.341 oz Body Mass Index (BMI) 29.4 Physical Exam Narrative Physical Examination: General: Awakens to stimuli, fatigued but is alert with questioning, oriented to self, place, recent events despite reported increased debility and some confusion per spouse, laying in the ED bed, fatigued appearing. Skin: Normal color, normal turgor, no icterus, no cyanosis except noted bi lateral lower extremity venous stasis skin changes, occasional abrasion, occasional staged ecchymoses, posterior decubitus quarter sized ulcer initial stages. HEENT: AT/NC, EOMI, PERRLA, mildly dry MM, no carotid bruits, + JVD noted. Lungs: Mildly diminished, greater bases, mildly increased respiratory rate but no distress, mild rales, no marked rhonchi or wheezing. Heart: Irregular, rate controlled; no gallop, rub audible. Abdomen: Soft, overweight, NTTP, ND, mildly hyperactive BS, no significantly appreciated HSM. Extremities: No cyanosis, no clubbing, significant pedal to knee 2-3+ pitting edema, venous stasis skin changes as noted. Neurological: Awakens to stimuli, fatigued but is alert with questioning, oriented to self, place, recent events despite reported increased debility and some confusion per spouse, laying in the ED bed, fatigued appearing, cognitive function mildly decreased from baseline; pupils equally reactive to light and accommodation, cranial nerves grossly normal, moving all 4 extremities, no focal deficits, strength moderately to severely globally decreased secondary to acute presentation. Psychiatric: Affect appears flat, fatigued, no acute evidence of depressive or anxiety feelings but does have underlying history. Results Lab / Micro Data 06/26/23 11:30 06/26/23 12:18 Labs: Laboratory Results - last 24 hr 06/26/23 11:30: WBC 9.3, RBC 3.01 L, Hgb 10.6 L, Hct 35.0 L, MCV 116.3 H, MCH 35.2 H, MCHC 30.3 L, RDW Std Deviation 74.0 H, RDW Coeff of Nick 17.2 H, Plt Count 224, MPV 9.5, Immature Gran % (Auto) 0.500, Neut % (Auto) 77.1 H, Lymph % (Auto) 7.4 L, [place] % (Auto) 14.2 H, Eos % (Auto) 0.2, Baso % (Auto) 0.6, Absolute Neuts (auto) 7.2, Absolute Lymphs (auto) 0.69 L, Nucleated RBC % 0, Hypochromasia 1+, Anisocytosis 1+, Sodium Cancelled, Potassium Cancelled, Chloride Cancelled, Carbon Dioxide Cancelled, Anion Gap Cancelled, BUN Cancelled, Creatinine Cancelled, Estim Creat Clear Calc Cancelled, Est GFR (MDRD) Af Amer Cancelled, Est GFR (MDRD) Non-Af Cancelled, BUN/Creatinine Ratio Cancelled, Glucose Cancelled, Calcium Cancelled, Troponin I High Sens Cancelled, B-Natriuretic Peptide Cancelled 06/26/23 12:18: Sodium 137, Potassium 6.4 H*, Chloride 103, Carbon Dioxide 29.0, Anion Gap 5, BUN 37 H, Creatinine 4.93 H, Estim Creat Clear Calc 13.30, Est GFR (MDRD) Af Amer 15 L, Est GFR (MDRD) Non-Af 12 L, BUN/Creatinine Ratio 7.5 L, Glucose 122 H, Calcium 8.4 L, Troponin I High Sens 105 H, B-Natriuretic Peptide 3001.9 H Micro: Microbiology 06/26/23 12:18 Mucosa - Nose SARS-CoV-2, Influenza & RSV (PCR) - Final Imaging Radiology Impression Chest X-Ray 06/26/23 11:50 IMPRESSION: Cardiomegaly and CHF. Electronically Signed: Parminder Benton MD at 12:24 EDT , Assessment & Plan Assessment/Plan (1) Congestive heart failure: PLAN: Plan The patient is a 77 y/o M w/ PMHx: HFrEF, ESRD on HD, HTN with recently more issues with persistent hypotension especially with HD recently initiated on midodrine therapy, Hypothyroidism, HLD, Chronic AF, COPD with chronic hypoxic respiratory failure (3.5-4.5L NC), Anxiety and Depression, MARCELO on BIPAP q HS, Possible Adrenal Insufficiency versus Orthostatic Hypotension on daily fludrocortisone, Obesity, Chronic anemia, BPH, Hx Colon CA s/p partial colectomy who presents to the [facility] ED on 06/26/23 with history of worsening dyspnea over the last 24 to 48 hours more severe on day of presentation worse while he is laying flat and with any activity attempts with minimally productive cough with no recent fevers or chills no chest discomfort but unfortunately upon attempted dialysis on day of presentation had low blood pressure which has become an issue therefore it could not be performed given symptoms prompted referral to the ED for evaluation. #1. Acute Decompensated HFrEF complicated by hypotension with HD attempts recently started on midodrine: Will admit to the PCU, will maintain on cardiac telemetry obtain cardiac enzyme series, obtain serial EKGs, given patient does not make urine will attempt to initiate HD upon admission, ED discussed case also with Nephrology as missed HD, will continue to monitor I/Os, maintain on intake restriction, continue medical therapy, obtain TSH and magnesium level. Most recent ECHO noted 04/22/2023 with EF 25 to 30%, evidence diastolic dysfunction, mildly dilated RV, mildly enlarged LA, mild to moderate MVI, moderate global hypokinesis LV thus will not repeat, BL LE marita wraps. PT/OT/CM consultation for discharge planning. #2. Acute encephalopathy, possibly more type factorial: does report patient's been more confused although in the ED he does wake up and answer questions appropriately and is oriented but quickly falls back asleep, will maintain on monitor as noted, procalcitonin requested, will obtain respiratory for viral panel as well as sputum culture to assure no underlying infectious etiology and certainly low threshold to repeat chest x-ray in a.m pending further assessment. #3. Hyperkalemia, falsely elevated secondary to moderate hemolysis: Potassium 6.4 however noted to be moderately hemolyzed, will repeat level to be cautious this evening and repeat CMP in a.m. but again falsely elevated. #4. Elevated troponin, chronic component especially given underlying renal disease: Admission troponin 105, previous to this 04/26/2023 troponin 118, to be cautious will maintain on telemetry as noted, cycle cardiac enzymes to be cautious. Magnesium level requested. #5. Hypertension with recurrent episodes of Hypotension with HD attempts: Will hold patient home Coreg regimen given low BP upon presentation, add back once appropriate, continue midodrine but increase to 10 mg p.o. 3 times daily with dose in the ED and continue patient home fludrocortisone regimen but at this time given unclear history although suspected from orthostasis but certainly could be adrenal insufficiency will increase to twice daily with dose now. #6. History of colon cancer: Status post previous colectomy, previously considered in remission however patient did have recently elevated CEA and does have upcoming follow-up with some concerns about possible reoccurrence and given patient's decline over the last several weeks to months may certainly be a contributing factor. and patient note that if he does have recurrent disease he would not elect to have any treatment and likely at that point we will transition to hospice. He is already following with palliative care. #7. ESRD on HD: Admission BUN/Cr 37/4.93, GFR 12, baseline renal function primarily 4.6-4.9 noted, repeat BMP in AM, will consult nephrology and if able preference to have patient dialyzed upon admission or at least filtered. Of note does not make urine. #8. Chronic macrocytic anemia/AOCD: Admission hemoglobin 10.6, MCV 116.3, baseline hemoglobin primarily 9-10, stable, continue to trend. #9. CAD: Status post CABG, continue aspirin, statin, temporally holding Coreg, not on MARITA or/ARB. #10. Chronic Decubitous ulcer: Will continue santyl to wound with dressing changes, Wound RN consultation, offloading. #11. Chronic COPD with chronic hypoxic respiratory failure (3.5-4.5 L NC): Will maintain on oxygen with wean as tolerated to home oxygen supplementation, hold home inhalers in the interim maintain on ATC duonebs, PRN albuterol, HOB, IS parameters. #12. Chronic atrial fibrillation: From current list patient is not chronically anticoagulated, possibly secondary to fall risk, temporarily holding low-dose Coreg given blood pressure, will attempt to continue amiodarone but also may need to hold pending blood pressure, resume once appropriate. #13. Hyperlipidemia: We will continue patient on statin therapy. #14. Chronic macrocytic anemia: Admission hemoglobin 10.6, MCV 116.3, baseline hemoglobin appears similar, will continue to trend. #15. Hypothyroidism: We will continue patient home levothyroxine regimen, TSH level requested. #16. Obesity: Weight loss and lifestyle changes encouraged. #17. MARCELO: Will place on BiPAP to assist with fluid distribution with acute presentation #1 and nightly once appropriate. #18. Anxiety and depression: We will continue patient home mirtazapine regimen. #19. DVT prophylaxs: Heparin. #20. CODE status: Patient INDU is his who is present and living will is currently in place. Discussed CODE status at length including difference between FULL code, DNR-CCA and DNR-CC status. Following discussions about the differences in these status, requested DNR-CCA, no intubation status, no a ggressive measures. She notes that if patient . Advanced Care Planning Face to Face Time: 16 minutes. Charges/Coding Visit Charges Inpatient E&M: 76837 Init Hosp L3 Procedures Hospitalists Procedures: 83534 Advncd Care Plan 30 Min
--- NOTE | 2023-06-26 13:56 | PCM.CONS.R ---
Assessment & Plan Assessment/Plan (1) End-stage renal disease on hemodialysis: (2) Hyperkalemia: (3) Congestive heart failure: PLAN: Plan Impression/Plan: The patient is a 77-year-old man with past history of ESRD, CAD status post CABG, HFrEF, hypertension, atrial fibrillation, MARCELO, gout, and hyperlipidemia. Patient presents to the hospital on 06/26/2019 for 1 day history of dyspnea, cough and labile BP. Nephrology is following for ESRD and dialysis management. ESRD. The patient usually dialyzes on MWF schedule at [facility]. He did not dialyze prior to presentation. The patient is volume overloaded and is hyperkalemic. I will arrange for an saw patient during hemodialysis treatment today. We are dialyzing patient with NxStage machine using 2K dialysate. Blood flow 400/dialysate flow 800. Will try to remove 2 L if he is not severely hypotensive. Will give patient extra dose of midodrine during dialysis treatment to maximize volume removal. Hyperkalemia. Potassium is 6.4 mmol/L. Hyperkalemia is likely due to ESRD. He is not hyperglycemic or acidotic. Will arrange for dialysis using 2K dialysate today. Volume overload/heart failure. Patient has a history of HFrEF. He is dyspneic on presentation. Chest x-ray shows pleural effusion and pulmonary edema. Will try to remove 2 L with ultrafiltration during dialysis today. Reassess response to ultrafiltration and volume status again tomorrow. Chronic hypotension. The patient is on midodrine as outpatient. Will give him a dose of midodrine at the beginning of dialysis to help optimize volume removal. Will monitor BP. HPI Consult Data Date of Consult: 06/26/23 HPI Narrative Reason for Consultation: ESRD HPI Narrative: The patient is a 77-year-old man with past history of ESRD, CAD status post CABG, HFrEF, hypertension, atrial fibrillation, MARCELO, gout, and hyperlipidemia. The patient usually dialyzes on MWF schedule at [facility]. He is followed at the kidney center by Dr. Fam. The patient presents to the hospital from [facility] today on 06/26/2023 with 1 day history of dyspnea which is worse when laying flat. The patient also has productive cough and tremor. He denies subjective fever/chill. The patient denies chest pain. Because of hypotension, the patient was sent from SNF to ED. He did not dialyze prior to presentation. Chest x-ray does show blunting of both right and left costophrenic angles consistent with pleural effusion and pulmonary edema. The patient reports dyspnea although symptomatically improved compared to this morning. He denies chest pain, nausea, vomiting, or diarrhea. There is no lower extremity edema. [facility] Medical History (Updated 06/26/23 @ 15:12 by Elvia Rock) Abnormal chest CT Anemia Anemia in chronic kidney disease Anxiety Arthritis Atrial fibrillation Back pain BiPAP (biphasic positive airway pressure) dependence BPH (benign prostatic hyperplasia) CHF (congestive heart failure) Congestive heart failure (CHF) COPD (chronic obstructive pulmonary disease) COPD (chronic obstructive pulmonary disease) COPD (chronic obstructive pulmonary disease) Coronary artery disease Coronary artery disease involving coronary bypass graft Coronary atherosclerosis of [place] coronary artery CPAP (continuous positive airway pressure) dependence Depression Dialysis patient Emphysema, unspecified End-stage renal disease on hemodialysis Erectile dysfunction ESRD (end stage renal disease) ESRD (end stage renal disease) on dialysis Former smoker Gastric ulcer GERD (gastroesophageal reflux disease) Gout High cholesterol History of atrial fibrillation History of edema History of heart attack HLD (hyperlipidemia) HTN (hypertension) Hypertension Hypertension Hypothyroidism Kidney disease Lower GI bleed Lumbar disc disease with radiculopathy Lumbosacral stenosis [place] Myocardial infarct Obesity On home oxygen therapy On home oxygen therapy MARCELO (obstructive sleep apnea) Pleural effusion Psychosexual dysfunction with inhibited sexual excitement Secondary pulmonary hypertension Sleep apnea Stage 3 severe COPD by GOLD classification Symptomatic anemia Home Medications nitroglycerin 0.4 mg sublingual tablet 0.4 mg sublingual Q5-15M PRN chest pain 05/03/18 [History Last Taken Unknown] amiodarone 200 mg tablet 100 mg PO DAILY heart 11/19/20 [History Last Taken 04/18/23] ascorbic acid (vitamin C) 500 mg capsule,extended release (Vitamin C) 500 mg PO DAILY supplement 11/23/20 [History Last Taken 04/18/23] levothyroxine 50 mcg tablet 50 mcg PO DAILY thyroid 12/13/21 [History Last Taken 03/18/22] carvedilol 3.125 mg tablet 3.125 mg PO SuTuThSa@1000 blood pressure #0 tabs 03/23/22 [Rx Last Taken 04/18/23] guaifenesin 600 mg tablet, extended release 12 hr (Mucinex) 600 mg PO BID cough 06/07/22 [History Last Taken Unknown] albuterol sulfate 2.5 mg/3 mL (0.083 %) solution for nebulization 2.5 mg (3 mL) inhalation 4X/DAY PRN PRN COPD #180 mL 04/04/23 [Rx Last Taken 04/18/23] aspirin 81 mg tablet,delayed release (Adult Aspirin Regimen) 81 mg PO DAILY 04/04/23 [History Last Taken 04/18/23] fluticasone propionate 50 mcg/actuation nasal spray,suspension 2 spray intranasal DAILY PRN ALLERGIES 04/04/23 [History Last Taken Unknown] glycopyrrolate 9 mcg-formoterol 4.8 mcg HFA aerosol inhaler (Bevespi Aerosphere) 2 puff inhalation BID SOB 04/04/23 [History Last Taken Unknown] vitamin B complex-vitamin C-folic acid 0.8 mg tablet ([place]anna-Laura) 1 tab PO Q24H vitamin 04/18/23 [History Last Taken Unknown] fludrocortisone 0.1 mg tablet 0.1 mg PO BREAKFAST #0 tabs 04/26/23 [Rx Last Taken Unknown] atorvastatin 20 mg tablet 20 mg PO DAILY 06/26/23 [History Last Taken Unknown] collagenase clostridium histo. 250 unit/gram topical ointment (Santyl) 1 applic topical DAILY 06/26/23 [History Last Taken Unknown] lidocaine-prilocaine 2.5 %-2.5 % topical cream 1 applic topical UD 06/26/23 [History Last Taken Unknown] midodrine 5 mg tablet 5 mg PO UD 06/26/23 [History Last Taken Unknown] mirtazapine 7.5 mg tablet 7.5 mg PO QHS 06/26/23 [History Last Taken Unknown] Allergy/AdvReac Type Severity Reaction Status Date / Time Penicillins Allergy Severe Rash, 105 Verified 06/26/23 10:36 temp amlodipine Allergy itching Verified 06/26/23 10:36 and rash prednisone Allergy Other Verified 06/26/23 10:36 indomethacin AdvReac Intermediate Other Verified 06/26/23 10:36 ropinirole AdvReac Intermediate Other Verified 06/26/23 10:36 trazodone AdvReac Intermediate Other Verified 06/26/23 10:36 aspirin AdvReac Mild rash Verified 06/26/23 10:36 Family History Mother , 84 y.o. Hypertension CVA (cerebral vascular accident) Father , 70 y.o. Heart disease Hodgkin disease Sister , 72 y.o. Heart disease Surgical History (Updated 06/26/23 @ 15:10 by Elvia Rock) H/O left cataract extraction History of cardiac catheterization History of colectomy (~2022) History of colonoscopy History of coronary artery stent placement History of heart artery stent History of heart surgery History of knee replacement procedure of left knee History of open heart surgery (~08/2020) History of total right knee replacement Hx of CABG S/P arteriovenous (AV) fistula repair (~12/2020) Social History household members: spouse housing: house pets and animals: No Smoking Status: Former smoker second hand exposure: No alcohol intake: current alcohol intake frequency: holidays/special occasions only ROS ROS Narrative 12/20 ROS is done. Please see HPI. Physical Exam Narrative General: Alert and oriented x3, NAD. HEENT: Normocephalic, atraumatic. Mucous membrane moist without erythema. PERRLA, EOMI. Hearing is intact. Neck: Supple, no JVD. Trachea is midline. No thyromegaly or lymphadenopathy. Cardiovascular: Normal S1, S2. No rubs, murmurs, or gallops. Respiratory: Decreased breath sound at bases bilaterally. Abdomen: Normal bowel sounds, soft, nontender, no guarding or rebound, no organomegaly. Extremities: No clubbing, cyanosis, or edema. Musculoskeletal: Full passive range of motion, no joint swelling. Psychiatric: Normal mood and affect. Skin: Warm and dry, no rash. Neurologic: Cranial nerve II to XII are grossly intact. No focal neurologic deficits. Lab / Micro Data 06/26/23 11:30 06/26/23 12:18 Labs: Laboratory Results - last 24 hr 06/26/23 11:30: WBC 9.3, RBC 3.01 L, Hgb 10.6 L, Hct 35.0 L, MCV 116.3 H, MCH 35.2 H, MCHC 30.3 L, RDW Std Deviation 74.0 H, RDW Coeff of Nick 17.2 H, Plt Count 224, MPV 9.5, Immature Gran % (Auto) 0.500, Neut % (Auto) 77.1 H, Lymph % (Auto) 7.4 L, Rice % (Auto) 14.2 H, Eos % (Auto) 0.2, Baso % (Auto) 0.6, Absolute Neuts (auto) 7.2, Absolute Lymphs (auto) 0.69 L, Nucleated RBC % 0, Hypochromasia 1+, Anisocytosis 1+, Sodium Cancelled, Potassium Cancelled, Chloride Cancelled, Carbon Dioxide Cancelled, Anion Gap Cancelled, BUN Cancelled, Creatinine Cancelled, Estim Creat Clear Calc Cancelled, Est GFR (MDRD) Af Amer Cancelled, Est GFR (MDRD) Non-Af Cancelled, BUN/Creatinine Ratio Cancelled, Glucose Cancelled, Calcium Cancelled, Troponin I High Sens Cancelled, B-Natriuretic Peptide Cancelled 06/26/23 12:18: Sodium 137, Potassium 6.4 H*, Chloride 103, Carbon Dioxide 29.0, Anion Gap 5, BUN 37 H, Creatinine 4.93 H, Estim Creat Clear Calc 13.30, Est GFR (MDRD) Af Amer 15 L, Est GFR (MDRD) Non-Af 12 L, BUN/Creatinine Ratio 7.5 L, Glucose 122 H, Calcium 8.4 L, Troponin I High Sens 105 H, B-Natriuretic Peptide 3001.9 H Micro: Microbiology 06/26/23 12:18 Mucosa - Nose SARS-CoV-2, Influenza & RSV (PCR) - Final Imaging Radiology Impression Chest X-Ray 06/26/23 11:50 IMPRESSION: Cardiomegaly and CHF. Electronically Signed: Parminder Benton MD at 12:24 EDT ,
[2023-06-26 14:28] LABS: Reflex Troponin-HS? (from REC) Y
[2023-06-26] MEDS: Midodrine HCl 5 MG Tablet 10 MG PO ×3 (14:28→22:03)
[2023-06-26 15:02] LABS: Troponin-I HS 130 pg/mL (3.0-78.0)
[2023-06-26 15:40] LABS: Magnesium 2.1 mg/dL (1.6-2.6); Phosphorus 5.4 mg/dL (2.5-4.9)
[2023-06-26] MEDS: PureFlow B 2K Dialysis Soln 1 BAG 6 BAG PF (15:55)
[2023-06-26] MEDS: 0.9% Normal Saline 1,000 ML IV.SOLN. 1000 ML OPERA.SITE (15:55)
[2023-06-26 17:00] LABS: Troponin-I HS 142 pg/mL (3.0-78.0)
[2023-06-26] MEDS: Ipratropium/Albuterol Sulfate 3 ML AMPUL.NEB INHALATION (19:43)
[2023-06-26 20:38] LABS: Anion Gap 5 (5-15); BUN 30 mg/dL (7-18); BUN/Creat Ratio 7.4 RATIO (10-20); Calcium,Total 9.5 mg/dL (8.5-10.1); Chloride 102 mmol/L (98-107); Creatinine, Serum 4.06 mg/dL (0.70-1.30); EST Glomerular Filtration Rate 15 mL/min (>60); Est Glom Filt Rate - Afr Amer 19 mL/min (>60); Estimated Creatinine Clearance 15.72 ml/min; Glucose 52 mg/dL (74-106); Potassium 5.1 mmol/L (3.5-5.1); Sodium Level 138 mmol/L (136-145)
[2023-06-26] MEDS: Mirtazapine 15 MG Tablet 7.5 MG PO (22:02)
[2023-06-26] MEDS: Fludrocortisone Acetate 0.1 MG Tablet PO (22:03)
[2023-06-26] MEDS: Atorvastatin Calcium 20 MG Tablet PO (22:03)
[2023-06-26] MEDS: Heparin Injection (Vial) 5,000 UNIT/ML VIAL 5000 UNIT SC (22:03)
[2023-06-26] MEDS: guaiFENesin 600 MG Tablet PO (22:03)
[2023-06-27] VITALS (30 sets, daily range): BP systolic 64–287; BP diastolic 40–97; PULSE 81–108; RESP 12–25; TEMP 36–36.7; O2SAT 86–100; BMI 27.8; BMI 27.5
[2023-06-27] MEDS: Levothyroxine 50 MCG Tablet PO (04:57)
[2023-06-27] MEDS: Heparin Injection (Vial) 5,000 UNIT/ML VIAL 5000 UNIT SC ×3 (04:57→21:45)
[2023-06-27] MEDS: 0.9% Saline Lock 10 ML Syringe IV (06:02)
[2023-06-27] MEDS: Midodrine HCl 5 MG Tablet 10 MG PO ×5 (06:47→22:39)
[2023-06-27] MEDS: Ipratropium/Albuterol Sulfate 3 ML AMPUL.NEB INHALATION ×3 (07:03→19:09)
[2023-06-27 07:11] LABS: Bedside Glucose 66 mg/dL (74-106)
[2023-06-27 07:44] LABS: Absolute Lymphocyte Count 0.64 X10^3/uL (0.83-4.51); Basophil# 0.04 X10^3/uL; Basophil% 0.4 % (0-1); Eosinophil# 0.01 X10^3/uL; Eosinophils% 0.1 % (0-5); Hematocrit 32.1 % (40-54); Hemoglobin 9.6 g/dL (13.0-16.5); Lymphocyte # 0.64 X10^3/ul (0.83-4.51); Lymphocyte % 5.8 % (19-41); Mean Corp Hgb Conc 29.9 g/dL (32-36); Mean Corpuscular Hgb 34.8 pg (27.0-32.0); Mean Corpuscular Volume 116.3 fL (80-94); Mean Platelet Vol. 8.9 fl (6.2-12.0); Monocyte# 1.31 X10^3/uL; Monocyte% 11.8 % (0-10); NRBC Flagged by Analyzer 0 % (0-5); Neutrophil # 9.01 X10^3/uL (2.7-7.7); Neutrophil % 81.4 % (47-70); POSITIVE MORPHOLOGY YES; Platelet Count 179 K/mm3 (150-450); RBC Distribution Width CV 16.9 % (11.6-14.6); RBC Distribution Width SD 72.2 fl (35.1-43.9); Red Blood Count 2.76 M/mm3 (4.6-6.2); White Blood Count 11.1 K/mm3 (4.4-11.0)
[2023-06-27 07:48] LABS: Differential Indicated SCAN CRITERIA MET
[2023-06-27 07:58] LABS: ALB/GLOB Ratio 0.6 RATIO (0.9-2.4); AST(SGOT) 30 U/L (15-37); Alanine Aminotransfer ALT/SGPT 20 U/L (16-61); Albumin, Serum 2.5 g/dL (3.2-5.0); Alkaline Phosphatase 108 U/L (45-117); Anion Gap 7 (5-15); BUN 37 mg/dL (7-18); BUN/Creat Ratio 8.5 RATIO (10-20); Calcium,Total 9.4 mg/dL (8.5-10.1); Chloride 103 mmol/L (98-107); Cholesterol 111 mg/dL (200); Creatinine, Serum 4.36 mg/dL (0.70-1.30); EST Glomerular Filtration Rate 14 mL/min (>60); Est Glom Filt Rate - Afr Amer 17 mL/min (>60); Estimated Creatinine Clearance 14.64 ml/min; Globulin 3.9 g/dL (2.2-4.2); Glucose 65 mg/dL (74-106); High Density Lipoprotein 72 mg/dL; Potassium 6.1 mmol/L (3.5-5.1); Protein, Total 6.4 g/dL (6.4-8.2); Sodium Level 134 mmol/L (136-145); Thyroid Stim Hormone (TSH) 6.61 uIU/mL (0.358-3.74); Triglycerides 35 mg/dL; Very Low Density Lipoprotein 7 mg/dL (5-40)
[2023-06-27 08:29] LABS: Anisocytosis 2+; Differential Comment SCANNED
--- NOTE | 2023-06-27 08:57 | CASEMGMT ---
Patient is from [facility]. SW sent updates to [facility] via [facility]. Nolvia Pulido [employer]
--- NOTE | 2023-06-27 09:01 | PCM.PN.HOSP ---
Reason for Visit Reason for Visit: Diagnoses Hyperkalemia (06/26/23) Heart failure, unspecified (06/26/23) End stage renal disease (06/26/23) Dependence on renal dialysis (06/26/23) Subjective Subjective Patient is a 77-year-old gentleman with history of end-stage renal disease on hemodialysis admitted with progressive shortness of breath and assessment of acute decompensated congestive heart failure made admitted to a monitored bed for subsequent management Objective Data Objective Data Vital Signs: Vital Signs Temp Pulse Resp BP Pulse Ox O2 Del Method O2 Flow Rate 97.2 F L 99 12 97/48 L 100 Nasal Cannula 4 06/27/23 07:00 06/27/23 07:00 06/27/23 07:00 06/27/23 07:00 06/27/23 07:00 06/27/23 07:00 06/27/23 07:00 FiO2 35 06/27/23 04:05 Oxygen Flow Rate (L/min) 4 Oxygen Delivery Method Nasal Cannula Weight: 80.4 kg Body Mass Index (BMI) 27.8 Intake & Output: Intake and Output for Last 24 Hours 06/25/23 06/26/23 06/27/23 23:59 23:59 23:59 Intake Total 770 / 770 Output Total 2300 / 2300 Balance -1530 / -1530 Lab / Micro Data 06/27/23 07:25 06/27/23 05:50 Labs: Laboratory Results - last 24 hr 06/26/23 11:30: WBC 9.3, RBC 3.01 L, Hgb 10.6 L, Hct 35.0 L, MCV 116.3 H, MCH 35.2 H, MCHC 30.3 L, RDW Std Deviation 74.0 H, RDW Coeff of Nick 17.2 H, Plt Count 224, MPV 9.5, Immature Gran % (Auto) 0.500, Neut % (Auto) 77.1 H, Lymph % (Auto) 7.4 L, [place] % (Auto) 14.2 H, Eos % (Auto) 0.2, Baso % (Auto) 0.6, Absolute Neuts (auto) 7.2, Absolute Lymphs (auto) 0.69 L, Nucleated RBC % 0, Hypochromasia 1+, Anisocytosis 1+, Sodium Cancelled, Potassium Cancelled, Chloride Cancelled, Carbon Dioxide Cancelled, Anion Gap Cancelled, BUN Cancelled, Creatinine Cancelled, Estim Creat Clear Calc Cancelled, Est GFR (MDRD) Af Amer Cancelled, Est GFR (MDRD) Non-Af Cancelled, BUN/Creatinine Ratio Cancelled, Glucose Cancelled, Calcium Cancelled, Troponin I High Sens Cancelled, B-Natriuretic Peptide Cancelled 06/26/23 12:18: Sodium 137, Potassium 6.4 H*, Chloride 103, Carbon Dioxide 29.0, Anion Gap 5, BUN 37 H, Creatinine 4.93 H, Estim Creat Clear Calc 13.30, Est GFR (MDRD) Af Amer 15 L, Est GFR (MDRD) Non-Af 12 L, BUN/Creatinine Ratio 7.5 L, Glucose 122 H, Calcium 8.4 L, Troponin I High Sens 105 H, B-Natriuretic Peptide 3001.9 H 06/26/23 14:34: Phosphorus 5.4 H, Magnesium 2.1, Troponin I High Sens 130 H* 06/26/23 20:09: Sodium 138, Potassium 5.1, Chloride 102, Carbon Dioxide 31.0, Anion Gap 5, BUN 30 H, Creatinine 4.06 H, Estim Creat Clear Calc 15.72, Est GFR (MDRD) Af Amer 19 L, Est GFR (MDRD) Non-Af 15 L, BUN/Creatinine Ratio 7.4 L, Glucose 52 L, Calcium 9.5 06/26/23 : Troponin I High Sens 142 H*, Procalcitonin 0.70 H 06/27/23 05:50: WBC Cancelled, Corrected WBC Cancelled, RBC Cancelled, Hgb Cancelled, Hct Cancelled, MCV Cancelled, MCH Cancelled, MCHC Cancelled, RDW Std Deviation Cancelled, RDW Coeff of Nick Cancelled, Plt Count Cancelled, MPV Cancelled, Immature Gran % (Auto) Cancelled, Neut % (Auto) Cancelled, Lymph % (Auto) Cancelled, [place] % (Auto) Cancelled, Eos % (Auto) Cancelled, Baso % (Auto) Cancelled, Absolute Neuts (auto) Cancelled, Absolute Lymphs (auto) Cancelled, Total Counted Cancelled, Neutrophils % (Manual) Cancelled, Band Neutrophils % Cancelled, Lymphocytes % (Manual) Cancelled, Monocytes % (Manual) Cancelled, Eosinophils % (Manual) Cancelled, Basophils % (Manual) Cancelled, Metamyelocytes % Cancelled, Myelocytes % Cancelled, Promyelocytes % Cancelled, Blast Cells % Cancelled, Plasma Cell % (Manual) Cancelled, Other Cells % Cancelled, Nucleated RBC % Cancelled, Nucleated RBCs/100 WBC Cancelled, Differential Comment Cancelled, Diff Path Review Cancelled, Hypersegmented Neuts Cancelled, Atypical Lymphocytes Cancelled, Reactive Lymphocytes Cancelled, Smudge Cells Cancelled, Toxic Granulation Cancelled, Toxic Vacuolation Cancelled, Dohle Bodies Cancelled, Micheal Rods Cancelled, Platelet Estimate Cancelled, Plt Morphology Comment Cancelled, RBC Morphology Cancelled 06/27/23 05:50: RBC Morphology Cancelled, Polychromasia Cancelled, Hypochromasia Cancelled, Basophilic Stippling Cancelled, Anisocytosis Cancelled, Microcytosis Cancelled, Macrocytosis Cancelled, Spherocytes Cancelled, Sickle Cells Cancelled, Target Cells Cancelled, Tear Drop Cells Cancelled, Ovalocytes Cancelled, Stomatocytes Cancelled, [place] Bodies Cancelled, Koby Cells Cancelled, Bite Cells Cancelled, Crenated Cell Cancelled, Acanthocytes (Spur) Cancelled, Rouleaux Cancelled, Schistocytes Cancelled, Sodium 134 L, Potassium 6.1 H*, Chloride 103, Carbon Dioxide 24.0, Anion Gap 7, BUN 37 H, Creatinine 4.36 H, Estim Creat Clear Calc 14.64, Est GFR (MDRD) Af Amer 17 L, Est GFR (MDRD) Non-Af 14 L, BUN/Creatinine Ratio 8.5 L, Glucose 65 L, Calcium 9.4, Total Bilirubin 0.80, AST 30, ALT 20, Alkaline Phosphatase 108, Total Protein 6.4, Albumin 2.5 L, Globulin 3.9, Albumin/Globulin Ratio 0.6 L, Triglycerides 35, Cholesterol 111, LDL Cholesterol 32, VLDL Cholesterol 7, HDL Cholesterol 72, TSH 6.61 H 06/27/23 06:50: POC Glucose 66 L 06/27/23 07:25: WBC 11.1 H, RBC 2.76 L, Hgb 9.6 L, Hct 32.1 L, MCV 116.3 H, MCH 34.8 H, MCHC 29.9 L, RDW Std Deviation 72.2 H, RDW Coeff of Nick 16.9 H, Plt Count 179, MPV 8.9, Immature Gran % (Auto) 0.500, Neut % (Auto) 81.4 H, Lymph % (Auto) 5.8 L, [place] % (Auto) 11.8 H, Eos % (Auto) 0.1, Baso % (Auto) 0.4, Absolute Neuts (auto) 9.0 H, Absolute Lymphs (auto) 0.64 L, Nucleated RBC % 0, Differential Comment SCANNED, Anisocytosis 2+ Micro: Microbiology 06/26/23 17:17 Mucosa - Nose Respiratory Panel (PCR) - Final 06/26/23 12:18 Mucosa - Nose SARS-CoV-2, Influenza & RSV (PCR) - Final Radiography Diagnostic Testing: Radiology Impression Chest X-Ray 06/26/23 11:50 IMPRESSION: Cardiomegaly and CHF. Electronically Signed: Parminder Benton MD at 12:24 EDT , Physical Exam Narrative GENERAL: cooperative HEENT: Atraumatic; normocephalic EYES; Anicteric, Normal Conjunctiva NECK; supple, normal thyroid, RESPIRATORY: Diminished to auscultation CARDIOVASCULAR: Regular S1 S2, GI: soft, normoactive bowel sounds, : No Renal angle tenderness; EXTREMITIES: No edema, no clubbing, MUSCULOSKELETAL: no muscle wasting NEURO: Awake; no lateralizing signs. SKIN: chronic, superficial ulcer present on the right lower leg, probably venous ulcer. Covered with dressing. PSYCH; Flat affect Assessment & Plan Assessment/Plan (1) Congestive heart failure: PLAN: Plan Patient is a 77-year-old gentleman with history of end-stage renal disease on hemodialysis admitted with progressive shortness of breath and assessment of acute decompensated congestive heart failure made admitted to a monitored bed for subsequent management 1. Acute on chronic congestive heart failure with reduced ejection fraction ? Echo from 04/22/2023 demonstrated EF of 25 to 30%. Patient admitted to a monitored bed, management with strict input and output daily with fluid restriction initiated. Consult placed to nephrology for dialysis to help manage patient fluid overload status 2. Acute metabolic encephalopathy ? Multifactorial including end-stage renal disease as well as CHF 3. Hyperkalemia ? Secondary to end-stage renal disease plan is to manage with dialysis daily monitoring with BMPs ordered 4. End-stage renal disease ? On hemodialysis on Wednesdays and Fridays consult placed patient face [facility]ler for dialysis orders 5. Hypothyroidism - Patient is on levothyroxine home dose continued 6. Coronary artery disease ? With previous history of CABG and subsequent stent placement. Patient remains on guideline directed medical therapy 7. Gout ? Symptoms controlled on allopurinol 8. Chronic hypoxic respiratory failure secondary to COPD ? Patient is on 3.5 L at baseline 9. Chronic hypotension ? Patient is on midodrine as well as fludrocortisone 10. Paroxysmal A-fib ? Patient currently being monitored in the progressive care unit. Patient is on amiodarone and carvedilol did continue. Patient was previously on Eliquis discontinued due to to GI bleed 11. Anemia - Secondary to chronic disorder monitoring H&H and transfuse if patient becomes symptomatic or hemoglobin falls below 7 12. Dyslipidemia -Patient is on statin therapy, continued at home dose 11. DVT prophylaxis ? SCDs and heparin Time spent in the patient's overall evaluation,decision-making process, review of diagnostic data, adjustment of management, discussion with other providers, nursing nursing and ancillary staff involved in patient's care documentation, 50 Minutes Charges/Coding Visit Charges Inpatient E&M: 78570 [facility] L3
--- NOTE | 2023-06-27 09:36 | PN.RENAL_ITS ---
Subjective Subjective Patient is resting in bed. Denies any complaints this morning. Objective Data Objective Data Vital Signs: Vital Signs Temp Pulse Resp BP Pulse Ox O2 Del Method O2 Flow Rate 97.2 F L 99 12 97/48 L 100 Nasal Cannula 4 06/27/23 07:00 06/27/23 07:00 06/27/23 07:00 06/27/23 07:00 06/27/23 07:00 06/27/23 07:00 06/27/23 07:00 FiO2 35 06/27/23 04:05 Oxygen Flow Rate (L/min) 4 Oxygen Delivery Method Nasal Cannula Weight: 80.4 kg Body Mass Index (BMI) 27.8 Intake & Output: Intake and Output for Last 24 Hours 06/25/23 06/26/23 06/27/23 23:59 23:59 23:59 Intake Total 770 / 770 Output Total 2300 / 2300 Balance -1530 / -1530 Lab / Micro Data 06/27/23 07:25 06/27/23 05:50 Labs: Laboratory Results - last 24 hr 06/26/23 11:30: WBC 9.3, RBC 3.01 L, Hgb 10.6 L, Hct 35.0 L, MCV 116.3 H, MCH 35.2 H, MCHC 30.3 L, RDW Std Deviation 74.0 H, RDW Coeff of Nick 17.2 H, Plt Count 224, MPV 9.5, Immature Gran % (Auto) 0.500, Neut % (Auto) 77.1 H, Lymph % (Auto) 7.4 L, [place] % (Auto) 14.2 H, Eos % (Auto) 0.2, Baso % (Auto) 0.6, Absolute Neuts (auto) 7.2, Absolute Lymphs (auto) 0.69 L, Nucleated RBC % 0, Hypochromasia 1+, Anisocytosis 1+, Sodium Cancelled, Potassium Cancelled, Chloride Cancelled, Carbon Dioxide Cancelled, Anion Gap Cancelled, BUN Cancelled, Creatinine Cancelled, Estim Creat Clear Calc Cancelled, Est GFR (MDRD) Af Amer Cancelled, Est GFR (MDRD) Non-Af Cancelled, BUN/Creatinine Ratio Cancelled, Glucose Cancelled, Calcium Cancelled, Troponin I High Sens Cancelled, B-Natriuretic Peptide Cancelled 06/26/23 12:18: Sodium 137, Potassium 6.4 H*, Chloride 103, Carbon Dioxide 29.0, Anion Gap 5, BUN 37 H, Creatinine 4.93 H, Estim Creat Clear Calc 13.30, Est GFR (MDRD) Af Amer 15 L, Est GFR (MDRD) Non-Af 12 L, BUN/Creatinine Ratio 7.5 L, Glucose 122 H, Calcium 8.4 L, Troponin I High Sens 105 H, B-Natriuretic Peptide 3001.9 H 06/26/23 14:34: Phosphorus 5.4 H, Magnesium 2.1, Troponin I High Sens 130 H* 06/26/23 20:09: Sodium 138, Potassium 5.1, Chloride 102, Carbon Dioxide 31.0, Anion Gap 5, BUN 30 H, Creatinine 4.06 H, Estim Creat Clear Calc 15.72, Est GFR (MDRD) Af Amer 19 L, Est GFR (MDRD) Non-Af 15 L, BUN/Creatinine Ratio 7.4 L, Glucose 52 L, Calcium 9.5 06/26/23 : Troponin I High Sens 142 H*, Procalcitonin 0.70 H 06/27/23 05:50: WBC Cancelled, Corrected WBC Cancelled, RBC Cancelled, Hgb Cancelled, Hct Cancelled, MCV Cancelled, MCH Cancelled, MCHC Cancelled, RDW Std Deviation Cancelled, RDW Coeff of Nick Cancelled, Plt Count Cancelled, MPV Cancelled, Immature Gran % (Auto) Cancelled, Neut % (Auto) Cancelled, Lymph % (Auto) Cancelled, [place] % (Auto) Cancelled, Eos % (Auto) Cancelled, Baso % (Auto) Cancelled, Absolute Neuts (auto) Cancelled, Absolute Lymphs (auto) Cancelled, Total Counted Cancelled, Neutrophils % (Manual) Cancelled, Band Neutrophils % Cancelled, Lymphocytes % (Manual) Cancelled, Monocytes % (Manual) Cancelled, Eosinophils % (Manual) Cancelled, Basophils % (Manual) Cancelled, Metamyelocytes % Cancelled, Myelocytes % Cancelled, Promyelocytes % Cancelled, Blast Cells % Cancelled, Plasma Cell % (Manual) Cancelled, Other Cells % Cancelled, Nucleated RBC % Cancelled, Nucleated RBCs/100 WBC Cancelled, Differential Comment Cancelled, Diff Path Review Cancelled, Hypersegmented Neuts Cancelled, Atypical Lymphocytes Cancelled, Reactive Lymphocytes Cancelled, Smudge Cells Cancelled, Toxic Granulation Cancelled, Toxic Vacuolation Cancelled, Dohle Bodies Cancelled, Micheal Rods Cancelled, Platelet Estimate Cancelled, Plt Morphology Comment Cancelled, RBC Morphology Cancelled 06/27/23 05:50: RBC Morphology Cancelled, Polychromasia Cancelled, Hypochromasia Cancelled, Basophilic Stippling Cancelled, Anisocytosis Cancelled, Microcytosis Cancelled, Macrocytosis Cancelled, Spherocytes Cancelled, Sickle Cells Cancelled, Target Cells Cancelled, Tear Drop Cells Cancelled, Ovalocytes Cancelled, Stomatocytes Cancelled, [place] Bodies Cancelled, Koby Cells Cancelled, Bite Cells Cancelled, Crenated Cell Cancelled, Acanthocytes (Spur) Cancelled, Rouleaux Cancelled, Schistocytes Cancelled, Sodium 134 L, Potassium 6.1 H*, Chloride 103, Carbon Dioxide 24.0, Anion Gap 7, BUN 37 H, Creatinine 4.36 H, Estim Creat Clear Calc 14.64, Est GFR (MDRD) Af Amer 17 L, Est GFR (MDRD) Non-Af 14 L, BUN/Creatinine Ratio 8.5 L, Glucose 65 L, Calcium 9.4, Total Bilirubin 0.80, AST 30, ALT 20, Alkaline Phosphatase 108, Total Protein 6.4, Albumin 2.5 L, Globulin 3.9, Albumin/Globulin Ratio 0.6 L, Triglycerides 35, Cholesterol 111, LDL Cholesterol 32, VLDL Cholesterol 7, HDL Cholesterol 72, TSH 6.61 H 06/27/23 06:50: POC Glucose 66 L 06/27/23 07:25: WBC 11.1 H, RBC 2.76 L, Hgb 9.6 L, Hct 32.1 L, MCV 116.3 H, MCH 34.8 H, MCHC 29.9 L, RDW Std Deviation 72.2 H, RDW Coeff of Nick 16.9 H, Plt Count 179, MPV 8.9, Immature Gran % (Auto) 0.500, Neut % (Auto) 81.4 H, Lymph % (Auto) 5.8 L, [facility] % (Auto) 11.8 H, Eos % (Auto) 0.1, Baso % (Auto) 0.4, Absolute Neuts (auto) 9.0 H, Absolute Lymphs (auto) 0.64 L, Nucleated RBC % 0, Differential Comment SCANNED, Anisocytosis 2+ Micro: Microbiology 06/26/23 17:17 Mucosa - Nose Respiratory Panel (PCR) - Final 06/26/23 12:18 Mucosa - Nose SARS-CoV-2, Influenza & RSV (PCR) - Final Radiography Diagnostic Testing: Radiology Impression Chest X-Ray 06/26/23 11:50 IMPRESSION: Cardiomegaly and CHF. Electronically Signed: Parminder Benton MD at 12:24 EDT , Physical Exam Narrative Alert and oriented x 3, no acute distress S1, S2, RRR Diminished breath sounds with scattered rhonchi Abdomen soft, nontender No pitting edema noted bilateral lower legs Left forearm AV fistula positive thrill and bruit Assessment & Plan Assessment/Plan (1) End-stage renal disease on hemodialysis: (2) Hyperkalemia: (3) Congestive heart failure: PLAN: Plan Impression/Plan: The patient is a 77-year-old man with past history of ESRD, CAD status post CABG, HFrEF, hypertension, atrial fibrillation, MARCELO, gout, and hyperlipidemia. Patient presents to the hospital on 06/26/2019 for 1 day history of dyspnea, cough and labile BP. Nephrology is following for ESRD and dialysis management. ESRD. The patient usually dialyzes on MWF schedule at [facility]. Patient underwent approximately 2 hours 45 minutes of hemodialysis yesterday on 2K bath (potassium was 6.4). This morning potassium 6.1. Chest x-ray on admission showing fluid. Will dialyze patient again today on 2K bath attempting fluid removal and likely plan for dialysis again tomorrow on 2K bath attempting fluid removal as patient/blood pressure tolerates. Patient is on midodrine 10 mg 3 times daily. He can also receive 10 mg during dialysis for intradialytic hypotension. Patient is on Florinef daily. He is not on any antihypertensives. Hyperkalemia. Will arrange for dialysis using 2K dialysate today. Continue on renal diet Volume overload/heart failure. Patient has a history of HFrEF. Last echo from April 2023 demonstrated EF 25 to 30%. Chest x-ray: pleural effusion and pulmonary edema. Anemia of chronic disease. Hemoglobin today 9.6, will monitor hemoglobin trends.
[2023-06-27] MEDS: PureFlow B 2K Dialysis Soln 1 BAG 6 BAG PF (10:50)
[2023-06-27] MEDS: 0.9% Normal Saline 1,000 ML IV.SOLN. 1000 ML OPERA.SITE (10:50)
[2023-06-27] MEDS: Menthol/Lanolin/Calamine/Znox 113 GM Tube 1 APPLIC TOPICAL ×2 (11:29→15:55)
[2023-06-27] MEDS: Aspirin E.C. 81 MG Tablet PO (11:29)
[2023-06-27] MEDS: Amiodarone 200 MG Tablet 100 MG PO (11:30)
[2023-06-27] MEDS: Fluticasone 0.05% 1 SPRAY NASAL.SRY 2 SPRAY NASAL (11:30)
[2023-06-27] MEDS: Fludrocortisone Acetate 0.1 MG Tablet PO (11:31)
[2023-06-27] MEDS: guaiFENesin 600 MG Tablet PO ×2 (11:31→21:44)
[2023-06-27] MEDS: Folic Acid/Vitamin B Comp W-C 1 Capsule 1 CAP PO (11:32)
[2023-06-27] MEDS: Ascorbic Acid 500 MG Tablet PO (11:33)
--- NOTE | 2023-06-27 12:34 | NUR.TO.PHY ---
pt blood pressure remains less than 85mmhg systolic despite admin of midodrine. this RN spoke w/ district engineer. fluid removal off for duration of treatment. hypotension is asymptomatic & pt is more alert at this time than at start of dialysis. additional 10mg of midodrine given.
--- NOTE | 2023-06-27 13:34 | CASEMGMT ---
SW met with patient's . Introduced self and role at [facility]. The plan is for patient to return to [facility] at discharge. Nolvia GUERRIER
--- NOTE | 2023-06-27 13:39 | NUR.TO.PHY ---
Pt remains hypotensive even with discontinuation of dialysis. bp does not seem to respond to fluid resuscitation. additional 200ml bolus given with blood return w/ no change in blood pressure. HR remained consistently within the 90's during tx with no periods of tachycardia.
--- NOTE | 2023-06-27 14:37 | WOUNDNOTE ---
Pt had finished dialysis and is quite weak and tired. nursing had placed a Mepilex dressing this am. Dr had talked with and plan is for a Hospice consult if patient does not tolerate dialysis again tomorrow. pressures have been dropping and patient does not feel well. will not have patient turn to assess buttocks at this time. will follow up tomorrow.
--- NOTE | 2023-06-27 15:46 | CASEMGMT ---
Dr Pratt spoke with SW and stated he spoke with patient's about Hospice if patient does not improve. Dr Pratt said if patient does not improve tomorrow then Hospice will likely need consulted. SW to follow. Nolvia GUERRIER
[2023-06-27] MEDS: Collagenase 30gm Tube 1 APPLIC TOPICAL (15:56)
[2023-06-27] MEDS: Juven (unflavored) Packet 1 PACKET PO (17:49)
[2023-06-27] MEDS: Mirtazapine 15 MG Tablet 7.5 MG PO (21:44)
[2023-06-27] MEDS: Atorvastatin Calcium 20 MG Tablet PO (21:45)
[2023-06-27] MEDS: Acetaminophen 325 MG Tablet 650 MG PO (21:52)
[2023-06-28] VITALS (18 sets, daily range): BP systolic 59–98; BP diastolic 28–78; PULSE 64–104; RESP 14–22; TEMP 36.2–36.7; O2SAT 82–100
[2023-06-28] MEDS: Midodrine HCl 5 MG Tablet 10 MG PO (02:01)
[2023-06-28] MEDS: Acetaminophen 325 MG Tablet 650 MG PO (02:24)
[2023-06-28] MEDS: Heparin Injection (Vial) 5,000 UNIT/ML VIAL 5000 UNIT SC (05:45)
[2023-06-28] MEDS: Ipratropium/Albuterol Sulfate 3 ML AMPUL.NEB INHALATION (06:50)
[2023-06-28 06:54] LABS: Absolute Lymphocyte Count 0.38 X10^3/uL (0.83-4.51); Absolute Neutrophil Count 7.4 X10^3/uL (2.0-7.7); Basophil# 0.03 X10^3/uL; Basophil% 0.3 % (0-1); Hematocrit 31.4 % (40-54); Hemoglobin 9.2 g/dL (13.0-16.5); Lymphocyte # 0.38 X10^3/ul (0.83-4.51); Lymphocyte % 4.1 % (19-41); Mean Corp Hgb Conc 29.3 g/dL (32-36); Mean Corpuscular Hgb 34.5 pg (27.0-32.0); Mean Corpuscular Volume 117.6 fL (80-94); Mean Platelet Vol. 8.7 fl (6.2-12.0); Monocyte# 1.37 X10^3/uL; Monocyte% 14.9 % (0-10); NRBC Flagged by Analyzer 0.2 % (0-5); Neutrophil # 7.36 X10^3/uL (2.7-7.7); Neutrophil % 80.4 % (47-70); POSITIVE DIFFERENTIAL YES; POSITIVE MORPHOLOGY YES; Platelet Count 174 K/mm3 (150-450); RBC Distribution Width CV 16.7 % (11.6-14.6); RBC Distribution Width SD 72.7 fl (35.1-43.9); Red Blood Count 2.67 M/mm3 (4.6-6.2); White Blood Count 9.2 K/mm3 (4.4-11.0)
[2023-06-28 06:58] LABS: Differential Indicated SCAN CRITERIA MET
[2023-06-28 07:29] LABS: Anion Gap 9 (5-15); BUN 40 mg/dL (7-18); BUN/Creat Ratio 9.1 RATIO (10-20); Calcium,Total 9.2 mg/dL (8.5-10.1); Chloride 101 mmol/L (98-107); Creatinine, Serum 4.38 mg/dL (0.70-1.30); EST Glomerular Filtration Rate 14 mL/min (>60); Est Glom Filt Rate - Afr Amer 17 mL/min (>60); Glucose 105 mg/dL (74-106); Magnesium 2.1 mg/dL (1.6-2.6); Phosphorus 6.1 mg/dL (2.5-4.9); Potassium 5.6 mmol/L (3.5-5.1); Sodium Level 136 mmol/L (136-145)
[2023-06-28 07:50] LABS: Anisocytosis 1+
--- NOTE | 2023-06-28 08:01 | NURSING ---
Pt. with consistently low BPs throughout shift despite 2 doses of midodrine given. Pt. restless all night, pulling at telemetry leads and moving around in bed. D/t low BPs, PRN medications for anxiety were held, but tylenol was given for discomfort. @ approx. 0000 on 06/28/23, I found pt. in room unresponsive with agonal breathing with SpO2 reading @ 66% with pulse of approx. 97 on the step down monitor- pt. was on 8L @ this time. I performed a sternal rub which did not illicit a response. Bipap was placed on pt. I left pt. in care of other nursing staff to contact his of pt.'s change in status d/t pt. being a DNR-CCA, No intubation. I contacted @ 0027 and she stated that she would leave and come in. Upon ending the phone call, nursing staff came out of his room and stated that he had began to respond and was moving about his bed as before this episode occurred. Pt.'s family members came in and sat with him for the rest of my shift- this seemed to help pt. relax and pt. was resting with eyes closed several times after family arrived. Pt. did have 1 episode @ approx. 0600 of O2 dropping to 76% on 7L while being repositioned and laid down to approx. 20 degree angle to be pulled up. Pt. began breathing very shallow and would not make eye contact. pt. was sat up quickly and pt.'s O2 slowly returned to 96% and pt. began looking at staff and family when spoken to.
--- NOTE | 2023-06-28 09:11 | PCM.PN.HOSP ---
Reason for Visit Reason for Visit: Diagnoses Hyperkalemia (06/26/23) Heart failure, unspecified (06/26/23) End stage renal disease (06/26/23) Dependence on renal dialysis (06/26/23) Subjective Subjective Patient blood pressure still remains low and would not tolerate dialysis. Discussions regarding hospice had been initiated by Dr. Pratt with nephrology Objective Data Objective Data Vital Signs: Vital Signs Temp Pulse Resp BP Pulse Ox O2 Del Method O2 Flow Rate 98.0 F 97 16 79/41 L 97 High Flow 8 06/28/23 04:39 06/28/23 06:58 06/28/23 06:58 06/28/23 07:00 06/28/23 06:58 06/28/23 06:58 06/28/23 06:58 FiO2 30 06/28/23 02:00 Oxygen Flow Rate (L/min) 8 Oxygen Delivery Method High Flow Weight: 79.5 kg Body Mass Index (BMI) 27.5 Intake & Output: Intake and Output for Last 24 Hours 06/26/23 06/27/23 06/28/23 23:59 23:59 23:59 Intake Total 770 / 770 50 / 50 Output Total 2300 / 2300 900 / 900 Balance -1530 / -1530 -900 / -850 50 / 50 Lab / Micro Data 06/28/23 06:40 06/28/23 06:40 Labs: Laboratory Results - last 24 hr 06/28/23 06:40: WBC 9.2, RBC 2.67 L, Hgb 9.2 L, Hct 31.4 L, MCV 117.6 H, MCH 34.5 H, MCHC 29.3 L, RDW Std Deviation 72.7 H, RDW Coeff of Nick 16.7 H, Plt Count 174, MPV 8.7, Immature Gran % (Auto) 0.300, Neut % (Auto) 80.4 H, Lymph % (Auto) 4.1 L, [place] % (Auto) 14.9 H, Eos % (Auto) 0.0, Baso % (Auto) 0.3, Absolute Neuts (auto) 7.4, Absolute Lymphs (auto) 0.38 L, Nucleated RBC % 0.2, Anisocytosis 1+, Sodium 136, Potassium 5.6 H, Chloride 101, Carbon Dioxide 26.0, Anion Gap 9, BUN 40 H, Creatinine 4.38 H, Estim Creat Clear Calc 14.50, Est GFR (MDRD) Af Amer 17 L, Est GFR (MDRD) Non-Af 14 L, BUN/Creatinine Ratio 9.1 L, Glucose 105, Calcium 9.2, Phosphorus 6.1 H, Magnesium 2.1 Micro: Microbiology 06/26/23 17:17 Mucosa - Nose Respiratory Panel (PCR) - Final 06/26/23 12:18 Mucosa - Nose SARS-CoV-2, Influenza & RSV (PCR) - Final Physical Exam Narrative GENERAL: Patient unresponsive HEENT: Atraumatic; normocephalic EYES; Anicteric, Normal Conjunctiva NECK; supple, normal thyroid, RESPIRATORY: Diminished to auscultation CARDIOVASCULAR: Regular S1 S2, GI: soft, normoactive bowel sounds, : No Renal angle tenderness; EXTREMITIES: No edema, no clubbing, MUSCULOSKELETAL: no muscle wasting NEURO: Nonpurposeful movement Assessment & Plan Assessment/Plan (1) Congestive heart failure: PLAN: Plan Patient is a 77-year-old gentleman with history of end-stage renal disease on hemodialysis admitted with progressive shortness of breath and assessment of acute decompensated congestive heart failure made admitted to a monitored bed for subsequent management 1. Acute on chronic congestive heart failure with reduced ejection fraction ? Echo from 04/22/2023 demonstrated EF of 25 to 30%. Patient admitted to a monitored bed, management with strict input and output daily with fluid restriction initiated. Consult placed to nephrology for dialysis to help manage patient fluid overload status ? 06/28/2023 patient blood pressure remains relatively low or restricting the use of diuretic therapy 2. Acute metabolic encephalopathy ? Multifactorial including end-stage renal disease as well as CHF 3. Hyperkalemia ? Secondary to end-stage renal disease plan is to manage with dialysis daily monitoring with BMPs ordered 4. End-stage renal disease ? 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 06/28/2023; patient did not tolerate dialysis the day prior given his relatively low blood pressure 5. Hypothyroidism - Patient is on levothyroxine home dose continued 6. Coronary artery disease ? With previous history of CABG and subsequent stent placement. Patient remains on guideline directed medical therapy 7. Gout ? Symptoms controlled on allopurinol 8. Chronic hypoxic respiratory failure secondary to COPD ? Patient is on 3.5 L at baseline 9. Chronic hypotension ? Patient is on midodrine as well as fludrocortisone 10. Paroxysmal A-fib ? Patient currently being monitored in the progressive care unit. Patient is on amiodarone and carvedilol did continue. Patient was previously on Eliquis discontinued due to to GI bleed 11. Anemia - Secondary to chronic disorder monitoring H&H and transfuse if patient becomes symptomatic or hemoglobin falls below 7 12. Dyslipidemia -Patient is on statin therapy, continued at home dose 11. DVT prophylaxis ? SCDs and heparin Time spent in the patient's overall evaluation,decision-making process, review of diagnostic data, adjustment of management, discussion with other providers, nursing nursing and ancillary staff involved in patient's care documentation, Minutes Advance planning; did discuss with t the patient's and daughter regarding advanced directives as well as CODE STATUS. Did explain the various scenarios involved ( FULL CODE, DNR CCA, DNR CCA with no intubation, and DNR CC and what each meant) also went over patient's prognosis. Decision was made to change CODE STATUS from DNR CCA no intubation to DNR comfort care with consultation placed to hospice Order was placed. Time spent on discussion 18 minutes. Charges/Coding Visit Charges Inpatient E&M: 17778 Subs Hosp L2 Procedures Hospitalists Procedures: 07725 Advncd Care Plan 30 Min
--- NOTE | 2023-06-28 10:44 | CASEMGMT ---
Physician spoke with patient's again this am and she would like Hospice. SW met with patient's Janae. Janae confirmed she would like Hospice for patient. SW explained the options for d/c, alf, inpatient unit, and home. Janae would like the inpatient Hospice unit. SW explained how the process works. SW called Hospice and made the referral as well as faxed information. Nolvia Pulido [employer]
--- NOTE | 2023-06-28 11:07 | PCM.PN.REN ---
Subjective Subjective Patient is resting in bed. Patient's is at bedside. Meeting with hospice today. Objective Data Objective Data Vital Signs: Vital Signs Temp Pulse Resp BP Pulse Ox O2 Del Method O2 Flow Rate 97.1 F L 94 14 72/44 L 98 Nasal Cannula 10 06/28/23 09:21 06/28/23 09:21 06/28/23 09:21 06/28/23 09:21 06/28/23 09:21 06/28/23 09:25 06/28/23 09:25 FiO2 30 06/28/23 02:00 Oxygen Flow Rate (L/min) 10 Oxygen Delivery Method Nasal Cannula Weight: 79.5 kg Body Mass Index (BMI) 27.5 Intake & Output: Intake and Output for Last 24 Hours 06/26/23 06/27/23 06/28/23 23:59 23:59 23:59 Intake Total 770 / 770 50 / 50 Output Total 2300 / 2300 900 / 900 Balance -1530 / -1530 -900 / -850 50 / 50 Lab / Micro Data 06/28/23 06:40 06/28/23 06:40 Labs: Laboratory Results - last 24 hr 06/28/23 06:40: WBC 9.2, RBC 2.67 L, Hgb 9.2 L, Hct 31.4 L, MCV 117.6 H, MCH 34.5 H, MCHC 29.3 L, RDW Std Deviation 72.7 H, RDW Coeff of Nick 16.7 H, Plt Count 174, MPV 8.7, Immature Gran % (Auto) 0.300, Neut % (Auto) 80.4 H, Lymph % (Auto) 4.1 L, [place] % (Auto) 14.9 H, Eos % (Auto) 0.0, Baso % (Auto) 0.3, Absolute Neuts (auto) 7.4, Absolute Lymphs (auto) 0.38 L, Nucleated RBC % 0.2, Anisocytosis 1+, Sodium 136, Potassium 5.6 H, Chloride 101, Carbon Dioxide 26.0, Anion Gap 9, BUN 40 H, Creatinine 4.38 H, Estim Creat Clear Calc 14.50, Est GFR (MDRD) Af Amer 17 L, Est GFR (MDRD) Non-Af 14 L, BUN/Creatinine Ratio 9.1 L, Glucose 105, Calcium 9.2, Phosphorus 6.1 H, Magnesium 2.1 Micro: Microbiology 06/26/23 17:17 Mucosa - Nose Respiratory Panel (PCR) - Final 06/26/23 12:18 Mucosa - Nose SARS-CoV-2, Influenza & RSV (PCR) - Final Physical Exam Narrative Lethargic, no acute distress S1, S2, RRR Diminished breath sounds with scattered rhonchi Abdomen soft, nontender No pitting edema noted bilateral lower legs Left forearm AV fistula positive thrill and bruit Assessment & Plan Assessment/Plan (1) End-stage renal disease on hemodialysis: (2) Hyperkalemia: (3) Congestive heart failure: PLAN: Plan Impression/Plan: The patient is a 77-year-old man with past history of ESRD, CAD status post CABG, HFrEF, hypertension, atrial fibrillation, MARCELO, gout, and hyperlipidemia. Patient presents to the hospital on 06/26/2019 for 1 day history of dyspnea, cough and labile BP. Nephrology is following for ESRD and dialysis management. Attempted dialysis yesterday because of hyperkalemia and volume overload however patient significantly hypotensive with not much improvement in blood pressures with midodrine therefore conversation was held with Dr. Pratt, Dr. Ulloa and patient's Janae regarding transitioning to DNR comfort care, no further hemodialysis and hospice. Patient's Janae is meeting with hospice today. No further dialysis per 's request. Patient likely will be enrolled in hospice care today. Janae has already contacted patient's dialysis unit with the update. We will sign off. Please contact us if needed.
--- NOTE | 2023-06-28 11:27 | CASEMGMT ---
Hospice is here to meet with patient and family. Nolvia Pulido [employer]
--- NOTE | 2023-06-28 12:16 | DS.PCM_ITS ---
Providers Date of Admission: 06/26/23 Date of Discharge: 06/28/23 Primary Care Physician: Dr. Zack Stacy MD Consultations 06/26/23 15:21 Consult: Nephrology Routine Consulting Provider: Kirsty Ewing Reason for Consult: ESRD on HD, missed HD, low BPs, overloaded EMERGENT Consult: No MD Notified: Yes Date Notified: 06/26/23 Time Notified: 14:39 Method of Notification: ED Physician Initiated Consult: Onc/Wound/supervisor lending activities Routine Comment: Reason for Consult:: Sacral decub assessment 06/28/23 09:15 Consult: Hospice / Palliative Care Routine Consulting Provider: [facility] Reason for Consult: End-of-life care EMERGENT Consult: No MD Notified: Yes Date Notified: 06/28/23 Time Notified: 09:15 Method of Notification: Verbal Reason For Visit: HF EXACERBATION, HYPOTENSION Diagnosis Discharge Diagnosis (1) End-stage renal disease on hemodialysis: Status: Acute Code(s): N18.6 - End stage renal disease; Z99.2 - Dependence on renal dialysis (2) Hyperkalemia: Status: Acute Code(s): E87.5 - Hyperkalemia (3) Congestive heart failure: Status: Acute Code(s): I50.9 - Heart failure, unspecified Plan Patient is a 77-year-old gentleman with history of end-stage renal disease on hemodialysis admitted with progressive shortness of breath and assessment of acute decompensated congestive heart failure made admitted to a monitored bed for subsequent management 1. Acute on chronic congestive heart failure with reduced ejection fraction ? Echo from 04/22/2023 demonstrated EF of 25 to 30%. Patient admitted to a monitored bed, management with strict input and output daily with fluid restriction initiated. Consult placed to nephrology for dialysis to help manage patient fluid overload status ? 06/28/2023 patient blood pressure remains relatively low or restricting the use of diuretic therapy 2. Acute metabolic encephalopathy ? Multifactorial including end-stage renal disease as well as CHF 3. Hyperkalemia ? Secondary to end-stage renal disease plan is to manage with dialysis daily monitoring with BMPs ordered 4. End-stage renal disease ? 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 06/28/2023; patient did not tolerate dialysis the day prior given his relatively low blood pressure 5. Hypothyroidism - Patient is on levothyroxine home dose continued 6. Coronary artery disease ? With previous history of CABG and subsequent stent placement. Patient remains on guideline directed medical therapy 7. Gout ? Symptoms controlled on allopurinol 8. Chronic hypoxic respiratory failure secondary to COPD ? Patient is on 3.5 L at baseline 9. Chronic hypotension ? Patient is on midodrine as well as fludrocortisone 10. Paroxysmal A-fib ? Patient currently being monitored in the progressive care unit. Patient is on amiodarone and carvedilol did continue. Patient was previously on Eliquis discontinued due to to GI bleed 11. Anemia - Secondary to chronic disorder monitoring H&H and transfuse if patient becomes symptomatic or hemoglobin falls below 7 12. Dyslipidemia -Patient is on statin therapy, continued at home dose 11. DVT prophylaxis ? SCDs and heparin Medications at Discharge Home Medications albuterol sulfate 2.5 mg/3 mL (0.083 %) solution for nebulization 2.5 mg (3 mL) inhalation 4X/DAY PRN PRN COPD #180 mL 04/04/23 fluticasone propionate 50 mcg/actuation nasal spray,suspension 2 spray i ntranasal DAILY PRN ALLERGIES 04/04/23 collagenase clostridium histo. 250 unit/gram topical ointment (Santyl) 1 applic topical DAILY 06/26/23 lidocaine-prilocaine 2.5 %-2.5 % topical cream 1 applic topical UD 06/26/23 acetaminophen 325 mg tablet 650 mg (2 x 325 mg) PO Q4H PRN PRN Fever, pain 1-10 /10 #0 tabs 06/28/23 acetaminophen 650 mg rectal suppository 650 mg IA Q4H PRN PRN Fever, pain 1-10 #0 ea 06/28/23 Hospital Course Summary of Care Provided Minutes Spent on Discharge: 50 Physical Exam Narrative GENERAL: Patient unresponsive HEENT: Atraumatic; normocephalic EYES; Anicteric, Normal Conjunctiva NECK; supple, normal thyroid, RESPIRATORY: Diminished to auscultation CARDIOVASCULAR: Regular S1 S2, GI: soft, normoactive bowel sounds, : No Renal angle tenderness; EXTREMITIES: No edema, no clubbing, MUSCULOSKELETAL: no muscle wasting NEURO: Nonpurposeful movement Weight / BMI Weight Weight: 79.5 kg Body Mass Index (BMI) 27.5 ABG / Lab / Microbiology Data 06/28/23 06:40 06/28/23 06:40 Laboratory: Laboratory Results - last 24 hr 06/28/23 06:40: WBC 9.2, RBC 2.67 L, Hgb 9.2 L, Hct 31.4 L, MCV 117.6 H, MCH 34.5 H, MCHC 29.3 L, RDW Std Deviation 72.7 H, RDW Coeff of Nick 16.7 H, Plt Count 174, MPV 8.7, Immature Gran % (Auto) 0.300, Neut % (Auto) 80.4 H, Lymph % (Auto) 4.1 L, [place] % (Auto) 14.9 H, Eos % (Auto) 0.0, Baso % (Auto) 0.3, Absolute Neuts (auto) 7.4, Absolute Lymphs (auto) 0.38 L, Nucleated RBC % 0.2, Anisocytosis 1+, Sodium 136, Potassium 5.6 H, Chloride 101, Carbon Dioxide 26.0, Anion Gap 9, BUN 40 H, Creatinine 4.38 H, Estim Creat Clear Calc 14.50, Est GFR (MDRD) Af Amer 17 L, Est GFR (MDRD) Non-Af 14 L, BUN/Creatinine Ratio 9.1 L, Glucose 105, Calcium 9.2, Phosphorus 6.1 H, Magnesium 2.1 Microbiology: Microbiology 06/26/23 17:17 Mucosa - Nose Respiratory Panel (PCR) - Final 06/26/23 12:18 Mucosa - Nose SARS-CoV-2, Influenza & RSV (PCR) - Final D/C Instructions Discharge Diet: No restrictions Meaningful Use Info Meaningful Use Meaningful Use Diagnoses (Choose all that apply): CHF CHF MARITA/ARB ordered at discharge?: No Reason MARITA/ARB not ordered?: Hypotension Documented LVEF (%): 25 Ischemic Stroke Statin Dosing Therapy Reference: STATIN DOSE THERAPY REFERENCE: * Patients > 75 years receive moderate or high dose statin therapy. * Patients 75 years or YOUNGER should receive HIGH intensity statin dose unless contraindicated. You will be required to document reason for non-treatment if statin daily dose does not meet guidelines. HIGH DOSE STATIN THERAPY DAILY Atorvastatin > than or = to 40 mg Rosuvastatin > than or = to 20 mg Amlodipine + Atorvastatin > than or = to 2.5/40 mg Ezetimibe + Simvastatin 10/80 mg Simvastatin 80mg Discharge Plan Admission Admit Date/Time: 06/26/23 13:52 Attending Provider: Sachin Ulloa Primary Care Provider: Zack Stacy Consulting Providers: Kirsty Ewing; Mercedes Lancaster; Sachin Barrios; Cathy Enciso; Candy Roy; Nathalie Schafer SUPERVISOR OF OPERATIONS Discharge Orders/Prescriptions Prescriptions: New acetaminophen 325 mg Tablet 650 mg PO Q4H PRN PRN (Reason: Fever, pain 1-/10) Qty: 0 0RF acetaminophen 650 mg Suppository 650 mg IA Q4H PRN PRN (Reason: Fever, pain 1-10) Qty: 0 0RF Continued fluticasone propionate 50 mcg/actuation spray,suspension 2 spray INTRANASAL DAILY PRN (Reason: ALLERGIES) albuterol sulfate 2.5 mg /3 mL (0.083 %) solution for nebulization 2.5 mg inhalation 4X/DAY PRN PRN (Reason: COPD) Qty: 180 6RF lidocaine-prilocaine 2.5-2.5 % cream 1 applic topical UD Rx Instructions: PRIOR TO DIALYSIS Santyl 250 unit/gram ointment 1 applic topical DAILY Discontinued nitroglycerin 0.4 mg tablet, sublingual 0.4 mg SUBLINGUAL Q5-15M PRN (Reason: chest pain) amiodarone 200 mg tablet 100 mg PO DAILY guaifenesin [Mucinex] 600 mg tablet extended release 12hr 600 mg PO BID Bevespi Aerosphere 9-4.8 mcg HFA aerosol inhaler 2 puff INHALATION BID aspirin [Adult Aspirin Regimen] 81 mg tablet,delayed release (DR/EC) 81 mg PO DAILY ascorbic acid (vitamin C) [Vitamin C] 500 mg Capsule, Extended Release 500 mg PO DAILY levothyroxine 50 mcg tablet 50 mcg PO DAILY Tawanna-Laura 0.8 mg tablet 1 tab PO Q24H Patient Comments: TAKE 1 TABLET BY MOUTH ONCE DAILY fludrocortisone 0.1 mg Tablet 0.1 mg PO BREAKFAST Qty: 0 0RF atorvastatin 20 mg tablet 20 mg PO DAILY midodrine 5 mg tablet 5 mg PO UD Rx Instructions: 30 MIN PRIOR TO DIALYSIS mirtazapine 7.5 mg tablet 7.5 mg PO QHS Referrals / Follow Up: Zack Stacy MD [Primary Care Provider] - Disposition Disposition (needs filled in before D/C Order can be placed): Hospice in Medical Facility Charges/Coding Visit Charges Inpatient E&M: 92644 Disch Hosp >30min
--- NOTE | 2023-06-28 12:58 | NURSING ---
Report called to Nurse Jessy @ [facility].
--- NOTE | 2023-06-28 14:54 | CASEMGMT ---
Patient went to the inpatient Hospice unit. MEE called [place] at [facility] and let her know this information. MEE also let Sadie know that patient's was happy with [facility], but she would not be able to afford the room and board. Nolvia GUERRIER
== END 2023-06-28 13:08 | disposition hospice, inpatient (51) | DRG 291 ==
LOC: ED 14:01 → PCU 14:36
PROVIDERS: Admitting Provider Family Medicine; Emergency Provider Emergency Medicine; PCP Family Medicine; Visit Provider Internal Medicine
DX: I13.2 Hypertensive heart and chronic kidney disease with heart failure and with stage 5 chronic kidney disease, or end stage renal disease (principal); N18.6 End stage renal disease; G93.41 Metabolic encephalopathy; I50.23 Acute on chronic systolic (congestive) heart failure; J96.11 Chronic respiratory failure with hypoxia; I95.3 Hypotension of hemodialysis; D63.8 Anemia in other chronic diseases classified elsewhere; I95.89 Other hypotension; J44.9 Chronic obstructive pulmonary disease, unspecified; I48.0 Paroxysmal atrial fibrillation; E03.9 Hypothyroidism, unspecified; D53.9 Nutritional anemia, unspecified; E78.00 Pure hypercholesterolemia, unspecified; G47.33 Obstructive sleep apnea (adult) (pediatric); Z99.2 Dependence on renal dialysis; M10.9 Gout, unspecified; I25.10 Atherosclerotic heart disease of native coronary artery without angina pectoris; I25.2 Old myocardial infarction; E87.5 Hyperkalemia; F41.8 Other specified anxiety disorders; E66.9 Obesity, unspecified; Z79.82 Long term (current) use of aspirin; Z95.5 Presence of coronary angioplasty implant and graft; Z87.891 Personal history of nicotine dependence; Z90.49 Acquired absence of other specified parts of digestive tract; Z99.81 Dependence on supplemental oxygen; Z79.899 Other long term (current) drug therapy; Z79.51 Long term (current) use of inhaled steroids; Z98.42 Cataract extraction status, left eye; Z96.653 Presence of artificial knee joint, bilateral; Z95.1 Presence of aortocoronary bypass graft; R79.89 Other specified abnormal findings of blood chemistry; Z85.038 Personal history of other malignant neoplasm of large intestine; Z68.29 Body mass index [BMI] 29.0-29.9, adult
CPT/HCPCS: 36415; 71046; 80048; 80053; 80061; 82962; 83735; 83880; 84100; 84145; 84443; 84484; 85025; 87631; 87633; 90937; 93005; 94002; 94003; 94640; 94762; 99285; J7030; J7040; A4216; G0257; J0612